=== PATIENT | male | born 1985 | race African-American/Black ===

== ENCOUNTER 2018-03-08 18:39 | Emergency (ER) | payer SELFPAY ==
[2018-03-08] MEDS ORDERED: PANTOPRAZOLE 40 MG INJ ONE (19:39)
[2018-03-08] MEDS ORDERED: NA CHLORIDE 0.9% 1,000 ML ONE (19:39)
[2018-03-08 19:50] LABS: Absolute Lymphocytes (CBC) 1.8 K/uL (0.7-4.9); Absolute Monocytes 1.2 K/uL (0.1-1.3); Absolute Neutrophil 12.8 K/uL (1.8-8.0); Basophils % 0.2 % (0-1.3); Eosinophils % 1.1 % (0-4.4); Hematocrit 38.2 % (39.6-49.0); Lymphocytes % 11.1 % (15.3-44.8); MCH 29.9 pg (27.0-35.0); MCV 89.3 fL (80-100); MPV 9.8 fL (7.6-11.3); Monocytes % 7.5 % (3.3-12.3); RBC Red Blood Cell Count 4.28 M/uL (4.33-5.43)
[2018-03-08 19:53] LABS: Protime INR 1.13
[2018-03-08 20:33] LABS: CKMB Creatine Kinase MB 0.7 ng/ml (0.3-4.0); Glucose Level 96 mg/dL (65-120)
[2018-03-08 20:39] LABS: ALT/SGPT 10 IU/L (10-60); AST/SGOT 19 IU/L (10-42); Albumin 3.8 g/dL (3.2-5.5); Alkaline Phosphatase 54 IU/L (42-121); BUN Blood Urea Nitrogen 9 mg/dL (6-20); Bilirubin Direct 0.2 mg/dL (0-0.2); Bilirubin Total 0.8 mg/dL (0.3-1.2); Creatine Phosphokinase 135 IU/L (22-269); Magnesium 1.5 mg/dL (1.8-2.5); Protein, Total 7.4 g/dL (6.0-8.3)
--- NOTE | 2018-03-08 20:39 | RAD REPORT ---
EXAM DESCRIPTION: CT - Head Brain Wo Cont - 03/08/2018 8:13 pm CLINICAL HISTORY: Dizziness COMPARISON: 2009 TECHNIQUE: Computed axial tomography of the head was obtained. IV contrast was not requested. All CT scans are performed using dose optimization technique as appropriate and may include automated exposure control or mA/KV adjustment according to patient size. FINDINGS: An intracranial bleed is not seen . The ventricles are normal in caliber. No extra-axial fluid collection is noted. The pineal gland is calcified measuring 11 millimeters. It is unchanged from the prior exam. Fluid within the sinuses/ mastoids is not seen. IMPRESSION: No acute intracranial abnormality is seen. The patient's symptoms persist MR the brain w ould be recommended
[2018-03-08 20:40] LABS: Bicarbonate 23 mEq/L (21-31); Sodium Level 141 mEq/L (135-145)
[2018-03-08 20:44] LABS: Potassium 2.9 mEq/L (3.6-5.0)
[2018-03-08 20:45] LABS: Urine Blood TRACE (NEG); Urine Glucose NEGATIVE (NEG); Urine Protein 3+ (NEG); Urine Specific Gravity >1.030 (1.005-1.030)
[2018-03-08] MEDS ORDERED: Morphine 2 MG/2 ML SYR ONE (20:47)
--- NOTE | 2018-03-08 20:57 | RAD REPORT ---
EXAM DESCRIPTION: Narciso Single View03/08/2018 8:08 pm CLINICAL HISTORY: Chest pain COMPARISON: August 2017 FINDINGS: The lungs appear clear of acute infiltrate. The heart is normal size IMPRESSION: No acute abnormalities displayed
--- NOTE | 2018-03-08 21:17 | EDPHYS ---
Physician Documentation [facility] Name: Tahir Ag Jr Age: 32 yrs Sex: Male : 1985 Arrival Date: 03/08/2018 Time: 18:42 Bed 2 Private MD: ED Physician Amanuel Ferrer HPI: 03/08 18:52 This 32 yrs old Black Male presents to ER via Ambulatory with complaints of Dizziness, kav Chest Pain, Headache, Fever. 19:53 The patient or guardian reports chest pain that is located primarily in the left kav breast. The patient presents with dizziness. Onset: The symptoms/episode began/occurred acutely. Context: occurred at a friend's home, just prior to the episode the patient experienced lightheadedness. Modifying factors: The symptoms are alleviated by nothing, the symptoms are aggravated by nothing. Associated signs and symptoms: Pertinent positives: headache. The pain does not radiate. Severity of symptoms: At their worst the symptoms were moderate just prior to arrival. Associated signs and symptoms: Pertinent positives: dizziness, headache, Pertinent negatives: abdominal pain, cough, diaphoresis, nausea, near syncope, palpitations, recent travel, shortness of breath, syncope, vomiting. The chest pain is described as aching, causing indigestion. Duration: The patient or guardian reports a single episode, that is now resolved. Modifying factors: The symptoms are alleviated by nothing. the symptoms are aggravated by nothing. Severity of pain: At its worst the pain was moderate just prior to arrival. Patient's baseline: Neuro: alert and fully oriented, Motor: no deficits, Ambulation: walks without assistance, Speech: normal. patient c/o intermittent chest pain left breast area that is not radiating. he reports associated symptoms of dizziness. pmhx: GERD, migraine headaches. patient reports that he drinks 3 monster drinks a day and 1 redbull per day. he reports smoking some crack and "...shooting up" cocaine this past week. similar symptoms 1 year ago. Historical: - Allergies: 18:46 No Known Allergies; la1 - PMHx: 18:46 Hernia; la1 - Immunization history:: Adult Immunizations up to date. - Social history:: Smoking status: Patient uses tobacco products, smokes one-half pack cigarettes per day. - Family history:: not pertinent. - Hospitalizations: : No recent hospitalization is reported. - History obtained from: friend. ROS: 19:53 Constitutional: Negative for fever, chills, and weight loss, Eyes: Negative for injury, kav pain, redness, and discharge, ENT: Negative for injury, pain, and discharge, Neck: Negative for injury, pain, and swelling, Respiratory: Negative for shortness of breath, cough, wheezing, and pleuritic chest pain, Abdomen/GI: Negative for abdominal pain, nausea, vomiting, diarrhea, and constipation, Back: Negative for injury and pain, : Negative for injury, bleeding, discharge, and swelling, MS/Extremity: Negative for injury and deformity, Skin: Negative for injury, rash, and discoloration, Psych: Negative for depression, anxiety, suicide ideation, homicidal ideation, and hallucinations, Allergy/Immunology: Negative for hives, rash, and allergies, Endocrine: Negative for neck swelling, polydipsia, polyuria, polyphagia, and marked weight changes, Hematologic/Lymphatic: Negative for swollen nodes, abnormal bleeding, and unusual bruising. 19:53 Cardiovascular: Positive for chest pain, with movement, of the left breast, Negative for edema, orthopnea, palpitations, paroxysmal nocturnal dyspnea. 19:53 Neuro: Positive for dizziness. Exam: 19:53 Constitutional: This is a well developed, well nourished patient who is awake, alert, kav and in no acute distress. Head/Face: Normocephalic, atraumatic. Eyes: Pupils equal round and reactive to light, extra-ocular motions intact. Lids and lashes normal. Conjunctiva and sclera are non-icteric and not injected. Cornea within normal limits. Periorbital areas with no swelling, redness, or edema. ENT: Nares patent. No nasal discharge, no septal abnormalities noted. Tympanic membranes are normal and external auditory canals are clear. Oropharynx with no redness, swelling, or masses, exudates, or evidence of obstruction, uvula midline. Mucous membranes moist. Neck: Trachea midline, no thyromegaly or masses palpated, and no cervical lymphadenopathy. Supple, full range of motion without nuchal rigidity, or vertebral point tenderness. No Meningismus. Chest/axilla: Normal chest wall appearance and motion. Nontender with no deformity. No lesions are appreciated. Respiratory: Lungs have equal breath sounds bilaterally, clear to auscultation and percussion. No rales, rhonchi or wheezes noted. No increased work of breathing, no retractions or nasal flaring. Abdomen/GI: Soft, non-tender, with normal bowel sounds. No distension or tympany. No guarding or rebound. No evidence of tenderness throughout. Back: No spinal tenderness. No costovertebral tenderness. Full range of motion. Skin: Warm, dry with normal turgor. Normal color with no rashes, no lesions, and no evidence of cellulitis. MS/ Extremity: Pulses equal, no cyanosis. Neurovascular intact. Full, normal range of motion. Psych: Awake, alert, with orientation to person, place and time. Behavior, mood, and affect are within normal limits. 19:53 Cardiovascular: Rate: normal, Rhythm: regular, Pulses: Pulses are 2+ in bilateral radial, brachial, femoral, popliteal, posterior tibial and and dorsalis pedis arteries.. Heart sounds: normal, Edema: is not appreciated, JVD: is not appreciated. 19:53 ECG was reviewed by the Attending Physician. Vital Signs: 18:46 BP 112 / 68; Pulse 87; Resp 19; Temp 99.0(TE); Pulse Ox 100% on R/A; Weight 58.97 kg; la1 Height 5 ft. 6 in. (167.64 cm); 19:46 BP 98 / 60; Pulse 82; Resp 18; Pulse Ox 99% on R/A; mt 21:14 BP 100 / 70; Pulse 71; Resp 15; Pulse Ox 100% on R/A; mt 18:46 Body Mass Index 20.98 (58.97 kg, 167.64 cm) la1 MDM: 19:06 Medical screening is not applicable. [facility] 20:19 NORM Risk Score: TOTAL SCORE = 0. Data reviewed: vital signs, nurses notes. ED course: loc pt c/o left rib pain 04/02. 03/08 19:31 Order name: Basic Metabolic Panel [facility] 03/08 19:31 Order name: BNP; Complete Time: 21:08 [facility] 03/08 21:09 Interpretation: Within normal limits. [facility] 03/08 19:31 Order name: CBC with Diff; Complete Time: 21:08 [facility] 03/08 21:08 Interpretation: WBC 15.9; HGB 12.8; RBC 4.28; HCT 38.2; STEVE% 80.1; LYM% 11.1; NEUT A kav 12.8. 03/08 19:31 Order name: Ckmb; Complete Time: 21:08 kav 03/08 21:09 Interpretation: Within normal limits. 03/08 19:31 Order name: CPK; Complete Time: 21:08 kav 03/08 21:09 Interpretation: Within normal limits. 03/08 19:31 Order name: LFT's; Complete Time: 21:08 kav 03/08 21:08 Interpretation: Abnormal: GLOB 3.6. v 03/08 19:31 Order name: Magnesium; Complete Time: 21:08 v 03/08 21:09 Interpretation: Abnormal: MG 1.5. 03/08 19:31 Order name: PT-INR; Complete Time: 21:08 kav 03/08 21:09 Interpretation: Abnormal: PT 13.4. 03/08 19:31 Order name: Ptt, Activated; Complete Time: 21:08 v 03/08 21:10 Interpretation: Within normal limits. 03/08 19:31 Order name: Troponin (emerg Dept Use Only); Complete Time: 21:08 v 03/08 21:10 Interpretation: Within normal limits. 03/08 19:31 Order name: XRAY Chest (1 view); Complete Time: 21:08 v 03/08 21:10 Interpretation: No acute disease. 03/08 19:32 Order name: Basic Metabolic Panel; Complete Time: 21:08 EDMS 03/08 21:11 Interpretation: Abnormal: K 2.9. 03/08 19:54 Order name: Urine Dipstick--Ancillary (enter results); Complete Time: 21:08 rg2 03/08 21:11 Interpretation: Abnormal: USPGR >1.030; UBLD TRACE; UPROT 3+. 03/08 20:01 Order name: CT Head Brain wo Cont; Complete Time: 21:08 kav 03/08 21:08 Interpretation: No acute disease. 03/08 18:49 Order name: EKG; Complete Time: 18:49 em1 03/08 18:49 Order name: EKG - Nurse/Tech; Complete Time: 18:50 em1 05/16 19:31 Order name: Cardiac monitoring; Complete Time: 19:35 kav 16 19:31 Order name: IV Saline Lock; Complete Time: 19:35 kav 16 19:31 Order name: Labs collected and sent; Complete Time: 19:35 kav 16 19:31 Order name: O2 Per Protocol; Complete Time: 19:35 kav 16 19:31 Order name: O2 Sat Monitoring; Complete Time: 19:35 kav 16 19:31 Order name: Urine Dipstick-Ancillary (obtain specimen); Complete Time: 20:27 kav EC:53 Rate is 79 beats/min. Rhythm is regular. QRS [place] is Normal. LA interval is normal. QRS kav interval is normal. QT interval is normal. No Q waves. T waves are Normal. No ST changes noted. Clinical impression: Normal ECG. Administered Medications: 19:45 Drug: ProTONIX 40 mg Route: IVP; Site: right antecubital; mg2 20:30 Follow up: Response: No adverse reaction; Pain is decreased mg2 19:46 Drug: NS 0.9% 1000 ml Route: IV; Rate: 1 bolus; Site: right antecubital; mg2 20:30 Follow up: Response: No adverse reaction; IV Status: Completed infusion mg2 20:50 Drug: morphine 4 mg Route: IVP; Site: right antecubital; mg2 21:30 Follow up: Response: No adverse reaction; Pain is decreased mg2 21:40 Drug: Potassium Chloride 40 mEq Route: PO; mg2 21:45 Follow up: Response: Medication administered at discharge. mg2 21:40 Drug: Magnesium 400 mg Route: PO; mg2 21:45 Follow up: Response: Medication administered at discharge. mg2 Disposition: 03/08/18 21:16 Discharged to Home. Impression: Hypomagnesemia, Hypokalemia, Dehydration, Cocaine abuse, costochondritis. - Condition is Stable. - Discharge Instructions: Stimulant Use Disorder-Cocaine, Potassium Content of Foods, Hypomagnesemia, Costochondritis, Zeaw-ma-Xiip, Dehydration, Adult, [id number]-[id number], Hypokalemia. - Medication Reconciliation Form, Thank You Letter, Antibiotic Education, Prescription Opioid Use form. - Follow up: Private Physician; When: 1 - 2 days; Reason: Recheck today's complaints, Continuance of care, Re-evaluation by your physician. - Problem is new. - Symptoms have improved. Addendum: 03/09/2018 22:31 Co-signature as Attending Physician, Amanuel Ferrer MD I agree with the assessment and k dr plan of care. Signatures: Dispatcher [employer] EDWY Amanuel Ferrer MD MD kdr Jaqueline Alfaro, ICT SALES ASSISTANT ICT SALES ASSISTANT kaJulio Goodman em1 Malcolm Villa RN RN la1 Carmelo Biggs RN RN mg2 Corrections: (The following items were deleted from the chart) 03/08 21:08 21:08 GLOB 3.6. kav kav 21:11 21:10 Within normal limits. kav kav 22:02 21:16 03/08/2018 21:16 Discharged to Home. Impression: Hypomagnesemia; Hypokalemia; mg2 Dehydration; Cocaine abuse; costochondritis. Condition is Stable. Forms are Medication Reconciliation Form, Thank You Letter, Antibiotic Education, Prescription Opioid Use. Follow up: Private Physician; When: 1 - 2 days; Reason: Recheck today's complaints, Continuance of care, Re-evaluation by your physician. Problem is new. Symptoms have improved. kav
--- NOTE | 2018-03-08 21:17 | ER ---
Nurse's Notes [facility] Name: Tahir Ag Jr Age: 32 yrs Sex: Male : 1985 Arrival Date: 03/08/2018 Time: 18:42 Bed 2 Private MD: Diagnosis: Hypomagnesemia;Hypokalemia;Dehydration;Cocaine abuse;costochondritis Presentation: 03/08 18:44 Presenting complaint: Patient states: Last night I was getting cold sweats and chills la1 as well as dizziness. At about 2300 last night I had a syncopal episode. Today I am having pain in my chest when I take a deep breath and have been running a fever. Transition of care: patient was not received from another setting of care. Onset of symptoms was March 08, 2018. Initial Sepsis Screen: Does the patient meet any 2 criteria? No. Patient's initial sepsis screen is negative. Does the patient have a suspected source of infection? No. Patient's initial sepsis screen is negative. Care prior to arrival: None. 18:44 Method Of Arrival: Ambulatory la1 18:44 Acuity: MARTINA 3 la1 Historical: - Allergies: 18:46 No Known Allergies; la1 - PMHx: 18:46 Hernia; la1 - Immunization history:: Adult Immunizations up to date. - Social history:: Smoking status: Patient uses tobacco products, smokes one-half pack cigarettes per day. - Family history:: not pertinent. - Hospitalizations: : No recent hospitalization is reported. - History obtained from: friend. Screenin:22 Abuse screen: Denies threats or abuse. Denies injuries from another. Nutritional mg2 screening: No deficits noted. Tuberculosis screening: No symptoms or risk factors identified. Fall Risk IV access (20 points). Assessment: 19:21 General: Appears in no apparent distress. comfortable, Behavior is calm, cooperative. mg2 Pain: Complains of pain in chest Pain does not radiate. Pain currently is 8 out of 10 on a pain scale. Quality of pain is described as aching, stinging, Is intermittent. Neuro: Level of Consciousness is awake, alert, obeys commands, Oriented to person, place, time. Cardiovascular: Capillary refill < 3 seconds Patient's skin is warm and dry. Respiratory: Airway is patent Respiratory effort is even, unlabored, Respiratory pattern is regular, symmetrical. GI: No signs and/or symptoms were reported involving the gastrointestinal system. : No signs and/or symptoms were reported regarding the genitourinary system. EENT: No signs and/or symptoms were reported regarding the EENT system. Derm: Skin is intact, Skin is pink, warm \T\ dry. normal. Musculoskeletal: No signs and/or symptoms reported regarding the musculoskeletal system. 20:30 Reassessment: Patient and/or family updated on plan of care and expected duration. Pain mg2 level reassessed. Patient is alert, oriented x 3, equal unlabored respirations, skin warm/dry/pink. 21:57 Reassessment: patient was on his way out ed and I informed him to wait for his mg2 discharged papers in the room. When I came to discharge him he was nowhere to be found. We tried calling his phone but its not a working number. Provider made aware that patient absconded and that Iv cannula was not yet removed. 22:01 Reassessment: Attempted to contact patient, not a working phone on file; [place] PD lp1 contacted, states will do welfare check and call back. Vital Signs: 18:46 BP 112 / 68; Pulse 87; Resp 19; Temp 99.0(TE); Pulse Ox 100% on R/A; Weight 58.97 kg; la1 Height 5 ft. 6 in. (167.64 cm); 19:46 BP 98 / 60; Pulse 82; Resp 18; Pulse Ox 99% on R/A; mt 21:14 BP 100 / 70; Pulse 71; Resp 15; Pulse Ox 100% on R/A; mt 18:46 Body Mass Index 20.98 (58.97 kg, 167.64 cm) la1 ED Course: 18:42 Patient arrived in ED. rg4 18:46 Triage completed. la1 18:46 Arm band placed on right wrist. la1 18:52 Jaqueline Alfaro FNP is [facility] kav 18:52 Amanuel Ferrer MD is Attending Physician. kav 19:10 Carmelo Biggs RN is Primary Nurse. mg2 19:22 No provider procedures requiring assistance completed. Inserted saline lock: 20 gauge mg2 in right antecubital area, using aseptic technique. Blood collected. 19:23 Patient has correct armband on for positive identification. Placed in gown. Bed in low mg2 position. Call light in reach. Side rails up X2. monitoring analyst on. Pulse ox on. NIBP on. Door closed. Noise minimized. Warm blanket given. 20:05 X-ray completed. Portable x-ray completed in exam room. Patient tolerated procedure bb2 well. 20:05 XRAY Chest (1 view) In Process Unspecified. EDMS 20:[address] via stretcher. nj 20:13 CT completed. Patient tolerated procedure well. Patient moved back from CT. nj 20:13 CT Head Brain wo Cont In Process Unspecified. EDMS 22:01 IV was not removed. patient absconded. mg2 Administered Medications: 19:45 Drug: ProTONIX 40 mg Route: IVP; Site: right antecubital; mg2 20:30 Follow up: Response: No adverse reaction; Pain is decreased mg2 19:46 Drug: NS 0.9% 1000 ml Route: IV; Rate: 1 bolus; Site: right antecubital; mg2 20:30 Follow up: Response: No adverse reaction; IV Status: Completed infusion mg2 20:50 Drug: morphine 4 mg Route: IVP; Site: right antecubital; mg2 21:30 Follow up: Response: No adverse reaction; Pain is decreased mg2 21:40 Drug: Potassium Chloride 40 mEq Route: PO; mg2 21:45 Follow up: Response: Medication administered at discharge. mg2 21:40 Drug: Magnesium 400 mg Route: PO; mg2 21:45 Follow up: Response: Medication administered at discharge. mg2 Outcome: 21:16 Discharge ordered by MD. monterroso 21:50 Patient left the ED. mg2 21:50 Discharged to home ambulatory, with family. 22:47 Condition: [facility] called back, patient at home, no IV lp1 in place, patient states removing it when he arrived home Signatures: Dispatcher [employer] EDMS Jaqueline Alfaro, FOOD DEMONSTRATOR FOOD DEMONSTRATORMiladis Berg, RN RN lp1 Malcolm Villa RN RN Sisi Yañez rg4 Alexey Lopez, [facility] Rea bb2 Carmelo Biggs RN RN mg2 Corrections: (The following items were deleted from the chart) 22:05 21:57 Condition: good lp1 mg2 22:05 22:00 Eloped from patient exam room, after seeing physician Time discovered patient mg2 gone: March 08, 2018 at 21:50 mg2 22: 22:02 Patient left the ED. mg2 mg2 : 21:57 Reassessment: patient was on his way out ed and I informed him to wait for his mg2 discharged papers in the room because Im still medicating another patient. When I came to discharge him he was nowhere to be found. We tried calling his phone but its not a working number. Provider made aware that patient absconded and that Iv cannula was not yet removed. mg2
[2018-03-08] MEDS ORDERED: POTASSIUM CL SA 10 MEQ TAB PO ONE (21:37)
[2018-03-08] MEDS ORDERED: MAGNESIUM OXIDE 400 MG TAB ONE (21:37)
[2018-03-08 22:06] VITALS: TEMP 99
[2018-03-08 22:08] VITALS: BP 100/70; O2SAT 100
--- NOTE | 2018-03-09 07:42 | EKG ---
Test Date: 2018-03-08 Test Time: 18:49:57 Core Winder Machine Operator: ERICH MEASUREMENT RESULTS: Intervals: Rate: 79 DC: 120 QRSD: 74 QT: 368 QTc: 421 [place]: P: 41 DC: 120 QRS: 54 T: 64 INTERPRETIVE STATEMENTS: Normal sinus rhythm Normal ECG Compared to ECG 04/30/2017 12:47:31 Sinus arrhythmia no longer present Electronically Signed On 03-09-18 07:41:41 CDT by Rasta Martinez
== END 2018-03-08 22:02 | disposition home or self-care (01) ==
LOC: ER 18:39
DX: E86.0 Dehydration (principal); F14.10 Cocaine abuse, uncomplicated; E87.6 Hypokalemia; M94.0 Chondrocostal junction syndrome [Tietze]; F17.210 Nicotine dependence, cigarettes, uncomplicated
CPT/HCPCS: 36415; 70450; 71045; 80048; 80076; 81003; 82550; 82553; 83735; 83880; 84484; 85025; 85610; 85730; 93005; 96361; 96374; 96375; 99285; C9113; J2270; J7030

== ENCOUNTER 2018-05-19 19:02 | Emergency (ER) | payer SELFPAY ==
[2018-05-19] MEDS ORDERED: ONDANSETRON 4 MG/2 ML VIAL ONE (19:29)
[2018-05-19] MEDS ORDERED: NA CHLORIDE 0.9% 1,000 ML ONE ×2 (19:29→21:20)
--- NOTE | 2018-05-19 19:38 | RAD REPORT ---
EXAM DESCRIPTION: CT - Head Brain Wo Cont - 05/19/2018 7:29 pm CLINICAL HISTORY: SYNCOPE Seizure COMPARISON: Head Brain Wo Cont dated 03/08/2018; MAXILLOFACIAL W O CONTRAST dated 07/05/2010 TECHNIQUE: All CT scans are performed using dose optimization technique as appropriate and may inclu de automated exposure control or mA/KV adjustment according to patient size. FINDINGS: No intracranial hemorrhage, hydrocephalus or extra-axial fluid collection.No areas of brai n edema or evidence of midline shift. The paranasal sinuses and mastoids are clear. The calvarium is intact. IMPRESSION: No acute intracranial abnormality.
--- NOTE | 2018-05-19 19:50 | RAD REPORT ---
EXAM DESCRIPTION: RAD - Chest Single View - 05/19/2018 7:40 pm CLINICAL HISTORY: CHEST PAIN Chest pain. COMPARISON: Chest Single View dated 03/08/2018; Chest Single View dated 09/08/2017; CHEST SINGLE VIEW dated 07/05/2010 FINDINGS: Portable technique limits examination quality. The lungs are grossly clear. The heart is normal in size. No displaced fractures.Prominent osteochond romas are noted emanating from both proximal humeri. IMPRESSION: No acute intrathoracic process suspected.
[2018-05-19 20:27] LABS: Absolute Lymphocytes (CBC) 1.6 K/uL (0.7-4.9); Absolute Monocytes 0.4 K/uL (0.1-1.3); Absolute Neutrophil 3.2 K/uL (1.8-8.0); Basophils % 0.2 % (0-1.3); Eosinophils % 2.8 % (0-4.4); Hematocrit 37.2 % (39.6-49.0); Lymphocytes % 29.8 % (15.3-44.8); MCH 31.5 pg (27.0-35.0); MCV 93.9 fL (80-100); MPV 9.4 fL (7.6-11.3); Monocytes % 7.8 % (3.3-12.3); RBC Red Blood Cell Count 3.96 M/uL (4.33-5.43)
[2018-05-19 20:29] LABS: Protime INR 0.98
[2018-05-19 20:39] LABS: ALT/SGPT 20 U/L (12-78); AST/SGOT 31 U/L (15-37); Albumin 3.4 g/dL (3.4-5.0); Alkaline Phosphatase 60 U/L (45-117); BUN Blood Urea Nitrogen 20 mg/dL (7-18); Bicarbonate 25 mmol/L (21-32); Bilirubin Direct 0.1 mg/dL (0-0.2); Bilirubin Total 0.3 mg/dL (0.2-1.0); CKMB Creatine Kinase MB 4.6 ng/mL (0.3-3.6); Creatine Phosphokinase 606 U/L (39-308); Glucose Level 96 mg/dL (74-106); Magnesium 2.7 mg/dL (1.8-2.4); NT PRO-BNP 25 pg/mL (<125); Potassium 3.9 mmol/L (3.5-5.1); Protein, Total 7.6 g/dL (6.4-8.2); Sodium Level 142 mmol/L (136-145)
--- NOTE | 2018-05-19 22:30 | ER ---
Nurse's Notes [facility] Name: Tahir Ag Jr Age: 33 yrs Sex: Male : 1985 Arrival Date: 05/19/2018 Time: 19:04 Bed 28 Private MD: Diagnosis: Syncope and collapse Presentation: 05/19 19:04 Presenting complaint: EMS states: he had seizure prior to arrival. no prior histories. mg2 he works outside/sun exposure most of the time. Transition of care: patient was not received from another setting of care. Onset of symptoms was May 19, 2018. Risk Assessment: Do you want to hurt yourself or someone else? Patient reports no desire to harm self or others. Initial Sepsis Screen: Does the patient meet any 2 criteria? No. Patient's initial sepsis screen is negative. Does the patient have a suspected source of infection? No. Patient's initial sepsis screen is negative. Care prior to arrival: None. 19:04 Method Of Arrival: EMS mg2 19:04 Acuity: MARTINA 3 mg2 Historical: - Allergies: 19:07 No Known Allergies; mg2 - Home Meds: 19:07 None [Active]; mg2 - PMHx: 19:07 Hernia; mg2 - PSHx: 19:07 None; mg2 - Immunization history:: Flu vaccine is not up to date. - Social history:: Smoking status: Patient/guardian denies using tobacco, Patient/guardian denies using alcohol, street drugs, IV drugs. - Ebola Screening: : No symptoms or risks identified at this time. Screenin:05 Abuse screen: Denies threats or abuse. Denies injuries from another. Nutritional mg2 screening: No deficits noted. Tuberculosis screening: No symptoms or risk factors identified. Fall Risk Secondary diagnosis (15 points) possible seizure. IV access (20 points). Assessment: 20:06 General: Appears in no apparent distress. comfortable, Behavior is calm. Pain: Denies mg2 pain. Neuro: Level of Consciousness is awake, alert, obeys commands, Oriented to person, place, time, situation. Cardiovascular: Capillary refill < 3 seconds Patient's skin is warm and dry. Respiratory: Airway is patent Respiratory effort is even, unlabored, Respiratory pattern is regular, symmetrical. GI: No signs and/or symptoms were reported involving the gastrointestinal system. : No signs and/or symptoms were reported regarding the genitourinary system. EENT: No signs and/or symptoms were reported regarding the EENT system. Derm: Skin is intact, Skin is pink, warm \T\ dry. normal. Musculoskeletal: No signs and/or symptoms reported regarding the musculoskeletal system. Vital Signs: 19:08 BP 101 / 63; Pulse 82; Resp 18; Temp 98.7(O); Pulse Ox 100% on R/A; Weight 63.5 kg; mg2 Height 5 ft. 6 in. (167.64 cm); Pain 0/10; 20:08 Pulse 64; Resp 18; Pulse Ox 100% on R/A; Pain 0/10; mg2 21:10 BP 91 / 64; Pulse 59; Resp 18; Pulse Ox 100% on R/A; Pain 0/10; mg2 22:12 BP 130 / 82; Pulse 65; Resp 18; Pulse Ox 100% on R/A; Pain 0/10; mg2 19:08 Body Mass Index 22.60 (63.50 kg, 167.64 cm) mg2 21:10 patient is sleeping mg2 22:12 patient is sleeping mg2 ED Course: 19:04 Patient arrived in ED. mg2 19:07 Triage completed. mg2 19:08 Keshawn Schilling PA is PHCP. cp 19:08 Aston Stockton MD is Attending Physician. cp 19:08 Arm band placed on. mg2 19:09 Maintain EMS IV. Dressing intact. Good blood return noted. Site clean \T\ dry. Gauge \T\ mg 2 site: 20 \T\ right ac. 19:25 Carmelo Biggs, MARTINA is Primary Nurse. mg2 19:29 CT Head Brain wo Cont In Process Unspecified. EDMS 19:40 XRAY Chest (1 view) In Process Unspecified. EDMS 20:08 Patient has correct armband on for positive identification. Placed in gown. Side rails mg2 up X2. 22:47 No provider procedures requiring assistance completed. IV discontinued, intact, mg2 bleeding controlled, No redness/swelling at site. Pressure dressing applied. Administered Medications: :56 Drug: NS 0.9% 1000 ml Route: IV; Rate: 1 bolus; Site: right antecubital; mg2 21:19 Follow up: Response: No adverse reaction; IV Status: Completed infusion mg2 19:56 Drug: Zofran 4 mg Route: IVP; Site: right antecubital; mg2 21:19 Follow up: Response: No adverse reaction; Nausea is decreased mg2 21:19 Drug: NS 0.9% 1000 ml Route: IV; Rate: 1 bolus; Site: right antecubital; mg2 22:47 Follow up: Response: No adverse reaction; IV Status: Completed infusion mg2 Outcome: 22:29 Discharge ordered by . jamia 22:48 Discharged to home ambulatory. mg2 22:48 Condition: stable 22:48 Discharge instructions given to patient, Instructed on discharge instructions, follow up and referral plans. Demonstrated understanding of instructions, follow-up care. 22:48 Patient left the ED. mg2 Signatures: Dispatcher [employer] EDMS Keshawn Schilling PA PA cp Gardose, Michele, RN RN mg2
--- NOTE | 2018-05-19 22:30 | EDPHYS ---
Physician Documentation [facility] Name: Taihr Ag Jr Age: 33 yrs Sex: Male : 1985 Arrival Date: 05/19/2018 Time: 19:04 Bed 28 Private MD: ED Physician Aston Stockton HPI: 05/19 19:18 This 33 yrs old Black Male presents to ER via EMS with complaints of Drug Abuse, cp Probable Seizure. 19:18 The patient's problem is reported as possible seizure vs syncope. Onset: The cp symptoms/episode began/occurred just prior to arrival. Duration: This was a single incident. Context: the episode(s) was witnessed, by a bystander, occurred outdoors, Possible contributing factors include: admits to recent use of synthetic marijuana and working outside today. Associated signs and symptoms: Pertinent negatives: abdominal pain, chest pain, diarrhea, fever, headache, vomiting. Patient's baseline: Neuro: alert and fully oriented, Motor: no deficits, Ambulation: walks without assistance, Speech: normal. Historical: - Allergies: 19:07 No Known Allergies; mg2 - Home Meds: 19:07 None [Active]; mg2 - PMHx: 19:07 Hernia; mg2 - PSHx: 19:07 None; mg2 - Immunization history:: Flu vaccine is not up to date. - Social history:: Smoking status: Patient/guardian denies using tobacco, Patient/guardian denies using alcohol, street drugs, IV drugs. - Ebola Screening: : No symptoms or risks identified at this time. ROS: 19:25 Constitutional: Negative for body aches, chills, fever, poor PO intake. cp 19:25 Eyes: Negative for injury, pain, redness, and discharge. cp 19:25 Neck: Negative for pain with movement, pain at rest, stiffness, swollen nodes, tenderness, bony tenderness. 19:25 Cardiovascular: Negative for chest pain. 19:25 Respiratory: Negative for cough, shortness of breath, wheezing. 19:25 Abdomen/GI: Negative for abdominal pain, nausea, vomiting, and diarrhea, black/tarry stool, rectal bleeding. 19:25 Back: Negative for pain at rest, pain with movement. 19:25 MS/extremity: Negative for injury or acute deformity, decreased range of motion. 19:25 Skin: Negative for cellulitis, rash. 19:25 Neuro: Positive for loss of consciousness, Negative for altered mental status, headache, seizure activity, speech changes. 19:25 All other systems are negative. Exam: 19:32 Constitutional: The patient appears in no acute distress, alert, awake, cp non-diaphoretic, non-toxic, well developed, well nourished. 19:32 Head/Face: Normocephalic, atraumatic. cp 19:32 Eyes: Periorbital structures: appear normal, Pupils: equal, round, and reactive to light and accomodation, Extraocular movements: intact throughout, Conjunctiva: normal, no exudate, no injection, Sclera: no appreciated abnormality, Lids and lashes: appear normal, bilaterally. 19:32 ENT: External ear(s): are unremarkable, Ear canal(s): are normal, clear, TM's: dullness, bilaterally, Nose: is normal, Mouth: Lips: moist, Oral mucosa: moist, Posterior pharynx: is normal, airway is patent, no erythema, no exudate. 19:32 Neck: ROM/movement: is normal, is supple, without pain, no range of motions limitations, no meningismus, no nuchal rigidity. 19:32 Chest/axilla: Inspection: normal, Palpation: is normal, no crepitus, no tenderness. 19:32 Cardiovascular: Rate: normal, Rhythm: regular, Pulses: Pulses are 2+ in right radial artery and left radial artery. Edema: is not appreciated, JVD: is not appreciated. 19:32 Respiratory: the patient does not display signs of respiratory distress, Respirations: normal, no use of accessory muscles, no retractions, no splinting, no tachypnea, labored breathing, is not present, Breath sounds: are clear throughout, no decreased breath sounds, no stridor, no wheezing. 19:32 Abdomen/GI: Inspection: abdomen appears normal, Bowel sounds: active, all quadrants, Palpation: abdomen is soft and non-tender, in all quadrants, rebound tenderness, is not appreciated, voluntary guarding, is not appreciated, involuntary guarding, is not appreciated. 19:32 Back: pain, is absent, ROM is normal. 19:32 Musculoskeletal/extremity: Exam is negative for decreased range of motion, deformity, injury. 19:32 Skin: cellulitis, is not appreciated, no rash present. 19:32 Neuro: Orientation: to person, place \T\ time. Mentation: able to follow commands, slow to respond, Cerebellar function: Romberg testing is negative, Motor: moves all fours, strength is normal, Sensation: no obvious gross deficits. 20:05 Radiologist reports: no acute findings cp 20:10 ECG was reviewed by the Attending Physician. cp Vital Signs: 19:08 BP 101 / 63; Pulse 82; Resp 18; Temp 98.7(O); Pulse Ox 100% on R/A; Weight 63.5 kg; mg2 Height 5 ft. 6 in. (167.64 cm); Pain 0/10; 20:08 Pulse 64; Resp 18; Pulse Ox 100% on R/A; Pain 0/10; mg2 21:10 BP 91 / 64; Pulse 59; Resp 18; Pulse Ox 100% on R/A; Pain 0/10; mg2 22:12 BP 130 / 82; Pulse 65; Resp 18; Pulse Ox 100% on R/A; Pain 0/10; mg2 19:08 Body Mass Index 22.60 (63.50 kg, 167.64 cm) mg2 21:10 patient is sleeping mg2 22:12 patient is sleeping mg2 MDM: 19:08 Patient medically screened. cp 20:00 Differential diagnosis: CVA, TIA, metabolic disorder, drug effects, seizure, drug cp overdose. 22:27 Data reviewed: vital signs, nurses notes, lab test result(s), EKG, radiologic studies, cp CT scan, plain films. 22:27 Test interpretation: by ED physician or midlevel provider: ECG, plain radiologic cp studies. Counseling: I had a detailed discussion with the patient and/or guardian regarding: the historical points, exam findings, and any diagnostic results supporting the discharge/admit diagnosis, lab results, radiology results, to return to the emergency department if symptoms worsen or persist or if there are any questions or concerns that arise at home. Response to treatment: the patient's symptoms have markedly improved after treatment, and as a result, I will discharge patient. 05/19 19:14 Order name: Basic Metabolic Panel cp 05/19 19:14 Order name: CBC with Diff cp 05/19 19:14 Order name: Ckmb; Complete Time: 21:16 cp 05/19 19:14 Order name: CPK; Complete Time: 21:16 cp 05/19 21:49 Interpretation: Abnormal: CPK 606. cp 05/19 19:14 Order name: LFT's; Complete Time: 21:16 05/19 19:14 Order name: Magnesium; Complete Time: 21:16 05/19 19:14 Order name: NT PRO-BNP; Complete Time: 21:16 05/19 19:14 Order name: PT-INR; Complete Time: 20:36 05/19 19:14 Order name: Ptt, Activated; Complete Time: 20:36 05/19 19:14 Order name: Troponin (emerg Dept Use Only); Complete Time: 21:16 cp 05/19 19:14 Order name: XRAY Chest (1 view); Complete Time: 19:51 05/19 19:51 Interpretation: Report review. 05/19 19:14 Order name: Basic Metabolic Panel; Complete Time: 21:16 EDMS 05/19 21:49 Interpretation: Normal except: CL 112; BUN 20. cp 05/19 19:14 Order name: CBC with Automated Diff; Complete Time: 20:36 EDMS 05/19 20:36 Interpretation: Normal except: RBC 3.96; HGB 12.5; HCT 37.2; MCV 93.9. 05/19 19:14 Order name: EKG; Complete Time: 19:16 05/19 19:14 Order name: Cardiac monitoring; Complete Time: 19:56 05/19 19:14 Order name: EKG - Nurse/Tech; Complete Time: 20:05 05/19 19:14 Order name: IV Saline Lock; Complete Time: 19:56 05/19 19:14 Order name: Labs collected and sent; Complete Time: 19:56 05/19 19:14 Order name: O2 Per Protocol; Complete Time: 19:56 05/19 19:14 Order name: O2 Sat Monitoring; Complete Time: 19:56 05/19 19:14 Order name: CT Head Brain wo Cont; Complete Time: 19:51 05/19 19:51 Interpretation: Report reviewed. EC:10 Rate is 62 beats/min. Rhythm is regular. NH interval is normal. QRS interval is normal. cp QT interval is normal. No ST changes noted. Interpreted by me. Reviewed by me. Administered Medications: 19:56 Drug: NS 0.9% 1000 ml Route: IV; Rate: 1 bolus; Site: right antecubital; mg2 21:19 Follow up: Response: No adverse reaction; IV Status: Completed infusion mg2 19:56 Drug: Zofran 4 mg Route: IVP; Site: right antecubital; mg2 21:19 Follow up: Response: No adverse reaction; Nausea is decreased mg2 21:19 Drug: NS 0.9% 1000 ml Route: IV; Rate: 1 bolus; Site: right antecubital; mg2 22:47 Follow up: Response: No adverse reaction; IV Status: Completed infusion mg2 Disposition: 05/20 03:04 Co-signature as Attending Physician, Aston Stockton MD. pkl Disposition: 05/19/18 22:29 Discharged to Home. Impression: Syncope and collapse. - Condition is Stable. - Discharge Instructions: Syncope. - Medication Reconciliation Form, Thank You Letter, Antibiotic Education, Prescription Opioid Use form. - Follow up: Private Physician; When: 1 - 2 days; Reason: Recheck today's complaints. - Problem is new. - Symptoms have improved. Signatures: Dispatcher [employer] EDMS Aston Stockton MD MD pkl Keshawn Schilling PA PA cp Gardose, Michele RN RN mg2 Corrections: (The following items were deleted from the chart) 05/19 22:48 22:29 05/19/2018 22:29 Discharged to Home. Impression: Syncope and collapse. Condition mg2 is Stable. Forms are Medication Reconciliation Form, Thank You Letter, Antibiotic Education, Prescription Opioid Use. Follow up: Private Physician; When: 1 - 2 days; Reason: Recheck today's complaints. Problem is new. Symptoms have improved. cp
[2018-05-19 22:52] VITALS: TEMP 98.7; O2SAT 100
[2018-05-19 22:55] VITALS: BP 130/82
--- NOTE | 2018-05-20 07:17 | EKG ---
Test Date: 2018-05-19 Test Time: 20:02:01 Motion Picture Film Examiner: MEASUREMENT RESULTS: Intervals: Rate: 62 ND: 138 QRSD: 86 QT: 416 QTc: 422 Olga: P: 57 ND: 138 QRS: 60 T: 63 INTERPRETIVE STATEMENTS: Normal sinus rhythm with sinus arrhythmia Normal ECG Compared to ECG 03/08/2018 18:49:57 No significant changes Electronically Signed On 05-20-18 07:17:14 CDT by Rasta Martinez
== END 2018-05-19 22:48 | disposition home or self-care (01) ==
LOC: ER 19:02
DX: R55 Syncope and collapse (principal)
CPT/HCPCS: 36415; 70450; 71045; 80048; 80076; 82550; 82553; 83735; 83880; 84484; 85025; 85610; 85730; 93005; 96361; 96374; 99284; J2405; J7030

== ENCOUNTER 2019-06-07 16:44 | Emergency (ER) | payer SELFPAY ==
[2019-06-07] MEDS ORDERED: METOCLOPRAMIDE 10 MG/2mL INJ ONE (17:35)
[2019-06-07] MEDS ORDERED: DIPHENHYDRAMINE 50 MG/ML VIAL ONE (17:35)
[2019-06-07 17:49] LABS: Absolute Lymphocytes (CBC) 1.5 K/uL (0.7-4.9); Basophils % 0.8 % (0-1.3); Hematocrit 38.3 % (39.6-49.0); Lymphocytes % 27.9 % (15.3-44.8); MPV 8.6 fL (7.6-11.3)
[2019-06-07 17:52] LABS: Protime INR 1.04
[2019-06-07 18:05] LABS: BUN Blood Urea Nitrogen 9 mg/dL (7-18); Bicarbonate 28 mmol/L (21-32); Glucose Level 77 mg/dL (74-106); NT PRO-BNP 39 pg/mL (<125); Potassium 3.3 mmol/L (3.5-5.1); Sodium Level 141 mmol/L (136-145); Troponin (Emerg Dept Use Only) < 0.02 ng/mL (0.0-0.045)
--- NOTE | 2019-06-07 18:55 | ER ---
Nurse's Notes [facility] Name: Tahir Ag Jr Age: 34 yrs Sex: Male : 1985 Arrival Date: 06/07/2019 Time: 16:49 Bed 15 Private MD: Diagnosis: Chest pain, unspecified Presentation: 06/07 16:49 Presenting complaint: EMS states: Pt developed chest pain enroute to precint, EMS met with police cruiser. Pt states he is having chest pain and head ache 10/10 on a pain scale. VS on scene was 110/73 98 99% RA afebrile. Transition of care: patient was not received from another setting of care. Onset of symptoms was June 07, 2019. Risk Assessment: Do you want to hurt yourself or someone else? Patient reports no desire to harm self or others. Initial Sepsis Screen: Does the patient meet any 2 criteria? HR > 90 bpm. Does the patient have a suspected source of infection? No. Patient's initial sepsis screen is negative. Care prior to arrival: Medication(s) given: Tylenol, 1000 mg. 16:49 Method Of Arrival: EMS: [facility] 16:49 Acuity: MARTINA 3 Historical: - Allergies: 16:54 No Known Allergies; - Home Meds: 16:54 gabapentin oral oral [Active]; Metoprolol Tartrate Oral [Active]; - PMHx: 16:54 Hernia; Diabetes - NIDDM; Hypertension; - Immunization history:: Adult Immunizations unknown. - Social history:: Smoking status: Patient uses tobacco products. - Ebola Screening: : Patient negative for fever greater than or equal to 101.5 degrees Fahrenheit, and additional compatible Ebola Virus Disease symptoms Patient denies exposure to infectious person. Screenin:52 Abuse screen: Denies threats or abuse. Denies injuries from another. Nutritional screening: No deficits noted. Tuberculosis screening: No symptoms or risk factors identified. Fall Risk None identified. Assessment: 17:05 General: Appears in no apparent distress. Behavior is calm, cooperative, appropriate for age. Pain: Complains of pain in chest Pain does not radiate. Pain currently is 5 out of 10 on a pain scale. Quality of pain is described as aching, Pain began 30 min ago. Neuro: Level of Consciousness is awake, alert, obeys commands, Oriented to person, place, time, situation, Appropriate for age Water Systems Engineer are equal bilaterally. Cardiovascular: Heart tones S1 S2. Respiratory: Airway is patent Respiratory effort is even, unlabored, Respiratory pattern is regular, symmetrical, Breath sounds are clear bilaterally. GI: Abdomen is flat, non-distended. : No signs and/or symptoms were reported regarding the genitourinary system. EENT: No signs and/or symptoms were reported regarding the EENT system. Derm: Skin is intact, is healthy with good turgor, Skin is pink, warm \T\ dry. normal. Musculoskeletal: Range of motion: intact in all extremities. 18:11 Reassessment: Patient appears in no apparent distress at this time. No changes from previously documented assessment. Patient and/or family updated on plan of care and expected duration. Pain level reassessed. Patient is alert, oriented x 3, equal unlabored respirations, skin warm/dry/pink. 19:43 Reassessment: Patient appears in no apparent distress at this time. No changes from previously documented assessment. Patient and/or family updated on plan of care and expected duration. Pain level reassessed. Patient is alert, oriented x 3, equal unlabored respirations, skin warm/dry/pink. Patient denies pain at this time. Patient states feeling better. Vital Signs: 16:54 BP 106 / 73; Pulse 86; Resp 18; Temp 98; Pulse Ox 100% ; wh 18:00 BP 98 / 74; Pulse 67; Resp 14; Pulse Ox 100% on R/A; wh 19:30 BP 103 / 78; Pulse 62; Resp 14; Pulse Ox 100% ; ED Course: 16:49 Patient arrived in ED. 16:52 Triage completed. 16:52 Arm band placed on left wrist. 16:53 Kasey Morales FNP-C is PHCP. kb 16:53 Keshawn Fish MD is Attending Physician. kb 16:54 PHCP role handed off by Kasey Morales FNP-C jr8 16:54 Ramón Quevedo PA is PHCP. jr8 16:54 Patient has correct armband on for positive identification. Placed in gown. Bed in low wh position. Call light in reach. Side rails up X 1. dental associate on. Pulse ox on. NIBP on. 17:11 Viktor Foy is Primary Nurse. 17:14 EKG done, by install technician. reviewed by Ramón DAVIS. [facility] 17:25 Inserted saline lock: 22 gauge in left antecubital area, using aseptic technique. Blood wh collected. 17:37 XRAY Chest (1 view) In Process Unspecified. EDMS 17:51 PHCP role handed off by Ramón Quevedo PA [facility] 17:51 Teo Alvares PA is PHCP. [facility] 19:44 No provider procedures requiring assistance completed. IV discontinued, intact, wh bleeding controlled, No redness/swelling at site. Administered Medications: 17:42 Drug: Benadryl 25 mg Route: IVP; Site: left antecubital; 19:44 Follow up: Response: No adverse reaction 17:43 Drug: Reglan 10 mg Route: IVP; Site: left antecubital; 19:44 Follow up: Response: No adverse reaction Outcome: 18:55 Discharge ordered by . [facility] 19:44 Discharged to Law Enforcement 19:44 Condition: good 19:44 Discharge instructions given to patient, police, Instructed on discharge instructions, follow up and referral plans. POC Unspecified Chest Pain Demonstrated understanding of instructions, follow-up care, POC 19:47 Patient left the ED. Signatures: Dispatcher [employer] EDMS Kasey Morales, BANANA LOADER-C BANANA LOADER-Ckb Teo Alvares PA PA jmm Roszak, Josh, PA PA [id number] Viktor Foy Tegan Martínez 3
--- NOTE | 2019-06-07 18:56 | EDPHYS ---
Physician Documentation [facility] Name: Tahir Ag Jr Age: 34 yrs Sex: Male : 1985 Arrival Date: 06/07/2019 Time: 16:49 Bed 15 Private MD: ED Physician Keshawn Fish HPI: 06/07 17:01 This 34 yrs old Black Male presents to ER via EMS with complaints of chest pain. jr8 17:01 The patient or guardian reports chest pain that is located primarily in the substernal jr8 area. The pain does not radiate. Associated signs and symptoms: Pertinent positives: headache. The chest pain is described as sharp. Duration: The patient or guardian reports multiple episodes. Modifying factors: The symptoms are alleviated by nothing. the symptoms are aggravated by nothing. Severity of pain: At its worst the pain was moderate in the emergency department the pain has improved mildly. The patient has experienced similar episodes in the past. The patient has not recently seen a physician. Stated that he last used Meth yesterday and cocaine 2 days ago . Historical: - Allergies: 16:54 No Known Allergies; - Home Meds: 16:54 gabapentin oral oral [Active]; Metoprolol Tartrate Oral [Active]; - PMHx: 16:54 Hernia; Diabetes - NIDDM; Hypertension; - Immunization history:: Adult Immunizations unknown. - Social history:: Smoking status: Patient uses tobacco products. - Ebola Screening: : Patient negative for fever greater than or equal to 101.5 degrees Fahrenheit, and additional compatible Ebola Virus Disease symptoms Patient denies exposure to infectious person. ROS: 17:01 Eyes: Negative for injury, pain, redness, and discharge, ENT: Negative for injury, jr8 pain, and discharge, Neck: Negative for injury, pain, and swelling, Respiratory: Negative for shortness of breath, cough, wheezing, and pleuritic chest pain, Abdomen/GI: Negative for abdominal pain, nausea, vomiting, diarrhea, and constipation, Back: Negative for injury and pain, MS/Extremity: Negative for injury and deformity, Skin: Negative for injury, rash, and discoloration. 17:01 Cardiovascular: Positive for chest pain, Negative for edema, orthopnea, palpitations, paroxysmal nocturnal dyspnea. 17:01 Neuro: Positive for headache, Negative for altered mental status, dizziness, gait disturbance, hearing loss, loss of consciousness, numbness, seizure activity, speech changes, syncope, near syncope, tingling, tinnitus, tremor, visual changes, weakness. Exam: 17:01 Eyes: Pupils equal round and reactive to light, extra-ocular motions intact. Lids and jr8 lashes normal. Conjunctiva and sclera are non-icteric and not injected. Cornea within normal limits. Periorbital areas with no swelling, redness, or edema. ENT: Nares patent. No nasal discharge, no septal abnormalities noted. Tympanic membranes are normal and external auditory canals are clear. Oropharynx with no redness, swelling, or masses, exudates, or evidence of obstruction, uvula midline. Mucous membranes moist. Neck: Trachea midline, no thyromegaly or masses palpated, and no cervical lymphadenopathy. Supple, full range of motion without nuchal rigidity, or vertebral point tenderness. No Meningismus. Cardiovascular: Regular rate and rhythm with a normal S1 and S2. No gallops, murmurs, or rubs. Normal PMI, no JVD. No pulse deficits. Respiratory: Lungs have equal breath sounds bilaterally, clear to auscultation and percussion. No rales, rhonchi or wheezes noted. No increased work of breathing, no retractions or nasal flaring. Abdomen/GI: Soft, non-tender, with normal bowel sounds. No distension or tympany. No guarding or rebound. No evidence of tenderness throughout. Back: No spinal tenderness. No costovertebral tenderness. Full range of motion. Skin: Warm, dry with normal turgor. Normal color with no rashes, no lesions, and no evidence of cellulitis. MS/ Extremity: Pulses equal, no cyanosis. Neurovascular intact. Full, normal range of motion. Neuro: Awake and alert, GCS 15, oriented to person, place, time, and situation. Cranial nerves II-XII grossly intact. Motor strength 5/5 in all extremities. Sensory grossly intact. Cerebellar exam normal. Normal gait. Vital Signs: 16:54 BP 106 / 73; Pulse 86; Resp 18; Temp 98; Pulse Ox 100% ; wh 18:00 BP 98 / 74; Pulse 67; Resp 14; Pulse Ox 100% on R/A; wh 19:30 BP 103 / 78; Pulse 62; Resp 14; Pulse Ox 100% ; wh MDM: 16:53 Patient medically screened. kb 18:44 Data reviewed: vital signs, nurses notes. [facility] 18:53 Data reviewed: lab test result(s). [facility] 18:54 Data reviewed: radiologic studies, plain films. Counseling: I had a detailed discussion terell with the patient and/or guardian regarding: the historical points, exam findings, and any diagnostic results supporting the discharge/admit diagnosis, lab results, radiology results, the need for outpatient follow up, to return to the emergency department if symptoms worsen or persist or if there are any questions or concerns that arise at home. 08 16:54 Order name: Basic Metabolic Panel; Complete Time: 18:20 kb 06/07 16:54 Order name: CBC with Diff; Complete Time: 18:24 kb 06/07 16:54 Order name: Magnesium; Complete Time: 18:20 kb 06/07 16:54 Order name: NT PRO-BNP; Complete Time: 18:20 kb 06/07 16:54 Order name: PT-INR; Complete Time: 18:20 kb 06/07 16:54 Order name: Troponin (emerg Dept Use Only); Complete Time: 18:20 kb 06/07 16:54 Order name: XRAY Chest (1 view) kb 06/07 16:54 Order name: EKG; Complete Time: 16:57 kb 06/07 16:54 Order name: Cardiac monitoring; Complete Time: 17:32 kb 06/07 16:54 Order name: EKG - Nurse/Tech; Complete Time: 17:32 kb 06/07 16:54 Order name: IV Saline Lock; Complete Time: 17:32 kb 06/07 16:54 Order name: Labs collected and sent; Complete Time: 17:32 kb 06/07 16:54 Order name: O2 Per Protocol; Complete Time: 17:32 kb 06/07 16:54 Order name: O2 Sat Monitoring; Complete Time: 17:32 kb Administered Medications: 17:42 Drug: Benadryl 25 mg Route: IVP; Site: left antecubital; 19:44 Follow up: Response: No adverse reaction 17:43 Drug: Reglan 10 mg Route: IVP; Site: left antecubital; 19:44 Follow up: Response: No adverse reaction Disposition: 06/08 08:21 Co-signature as Attending Physician, Keshawn Fish MD I agree with the assessment and daniel plan of care. Disposition: 06/07/19 18:55 Discharged to Home. Impression: Chest pain, unspecified. - Condition is Stable. - Discharge Instructions: Nonspecific Chest Pain. - Medication Reconciliation Form, Thank You Letter, Antibiotic Education, Prescription Opioid Use form. - Follow up: Private Physician; When: 2 - 3 days; Reason: Recheck today's complaints, Continuance of care, Re-evaluation by your physician. Signatures: Dispatcher [employer] EDKasey Garcia, BEN-C BEN-Keshawn Chacon MD MD cha Mickail, Joel, PA PA jmm Roszak, Josh, PA PA jr8 Habalo, Winsy Corrections: (The following items were deleted from the chart) 06/07 19:47 18:55 06/07/2019 18:55 Discharged to Home. Impression: Chest pain, unspecified. wh Condition is Stable. Forms are Medication Reconciliation Form, Thank You Letter, Antibiotic Education, Prescription Opioid Use. Follow up: Private Physician; When: 2 - 3 days; Reason: Recheck today's complaints, Continuance of care, Re-evaluation by your physician. terell
--- NOTE | 2019-06-07 19:56 | RAD REPORT ---
EXAM DESCRIPTION: Narciso Single View06/07/2019 5:37 pm CLINICAL HISTORY: Chest pain COMPARISON: 2018 FINDINGS: The lungs appear clear of acute infiltrate. The heart is normal size IMPRESSION: No acute abnormalities displayed
[2019-06-07 20:11] VITALS: TEMP 98; O2SAT 100
[2019-06-07 20:15] VITALS: BP 103/78
--- NOTE | 2019-06-08 11:47 | EKG ---
Test Date: 2019-06-07 Test Time: 17:07:53 Operations Intern: RAGINI MEASUREMENT RESULTS: Intervals: Rate: 73 AZ: 146 QRSD: 78 QT: 392 QTc: 431 Foster: P: 73 AZ: 146 QRS: 74 T: 79 INTERPRETIVE STATEMENTS: Normal sinus rhythm Normal ECG Compared to ECG 05/19/2018 20:02:01 Sinus arrhythmia no longer present Electronically Signed On 06-08-19 11:45:04 CDT by Grant Bill
== END 2019-06-07 19:47 | disposition home or self-care (01) ==
LOC: ER 16:44
DX: R07.9 Chest pain, unspecified (principal); I10 Essential (primary) hypertension; E11.9 Type 2 diabetes mellitus without complications; Z72.0 Tobacco use
CPT/HCPCS: 36415; 71045; 80048; 83735; 83880; 84484; 85025; 85610; 93005; 96374; 96375; 99285; J2765

== ENCOUNTER 2020-09-14 22:25 | Emergency (ER) | payer SELFPAY ==
--- OUTSIDE RECORDS SUMMARY | 2020-09-14 22:26 | XMS REPORT | Summary of Care ---
:1985 Author Organization [facility] - Health Address [address] [place] [address] Care Team Providers Name Role Phone Pcp, Does Not Have A Primary Care Provider Encounter Details Date Type Department Care Team Description 08/23/2020 Orders Only [facility] Doctor Unassigned, No [address] [facility] [place] [address] [address] [place] [place] [id number] Allergies No Known Allergiesdocumented as of this encounter (statuses as of 08/23/2020) Medications Medication Sig Dispensed Refills Start Date End Date Status divalproex sodium Take by mouth. 0 Active (DEPAKOTE ORAL) sertraline HCl (ZOLOFT Take by mouth. 0 Active ORAL) guanfacine HCl (TENEX Take by mouth. 0 Active ORAL) documented as of this encounter (statuses as of 08/23/2020) Active Problems No known active problemsdocumented as of this encounter (statuses as of 08/23/2020) Social History Tobacco Use Types Packs/Day Years Used Date Never Assessed Sex Assigned at Date Recorded Not on file documented as of this encounter Last Filed Vital Signs Not on filedocumented in this encounter Plan of Treatment Health Maintenance Due Date Last Done Comments VARICELLA VACCINES (1 of 2 - 1985 2-dose childhood series) Depression Screening 1996 DTaP,Tdap,and Td Vaccines (1 - 2003 Tdap) INFLUENZA VACCINE (#1) 2020 PNEUMOCOCCAL 0-64 YEARS COMBINED Aged Out No longer eligible based on SERIES patient's age to complete this topic documented as of this encounter Procedures Procedure Name Priority Date/Time Associated Diagnosis Comme nts CONSENT/REFUSAL FOR Routine 08/23/2020 5:56 PM CDT DIAGNOSIS AND TREATMENT documented in this encounter Results Not on filedocumented in this encounter
--- OUTSIDE RECORDS SUMMARY | 2020-09-14 22:26 | XMS REPORT | Continuity of Care Document ---
:1985 Author Organization [facility] t Address [address] [place] [address] Care Team Providers Name Role Phone Van Attending Clinician Oren CONTRERAS Attending Clinician Elizabeth ARENAS, A Attending Clinician Doctor Unassigned, Name Attending Clinician Unavailable Jose Hamilton MD Attending Clinician Shelton ARENAS Admitting Clinician Problems This patient has no known problems. Allergies, Adverse Reactions, Alerts This patient has no known allergies or adverse reactions. Social History Social Habit Start Date Stop Date Quantity Comments Source Sex Assigned At [facility] Medications This patient has no known medications. Procedures This patient has no known procedures. Plan of Care Planned Activity Planned Date Details Comments Source Future Scheduled Test 2020-07-24 00:00:00 IMM Influenza [facility] Seasonal Jul to December (>/= 19 yrs) [code = IMM Influenza Seasonal Jul to December (>/= 19 yrs)] Encounters Start End Encounter Admission Attending Care Care Encounter Source Date/Time Date/Time Type Type Clinicians Facility Department ID 2020-09-01 2020-09-01 Transition Sharon Araujo [id number] 00:00:00 00:00:00 of Care Henrietta Jo [id number] Daniela [id number] 2020-08-23 2020-08-30 [facility] Gauri Lott [id number] 18:15:00 16:15:00 Encounter Ramila Johnson [id number] [facility] [id number] 2020-08-23 2020-08-23 Orders Doctor NEGRITO [id number] 00:00:00 00:00:00 Only Unassigned, NAMRATA [id number] [place] [facility] [id number] 2020-05-02 2020-05-02 Emergency Joy RUST [id number] 02:29:01 07:27:00 Brett Howe [id number] [place] [id number] [place] [id number] Results This patient has no known results.
--- OUTSIDE RECORDS SUMMARY | 2020-09-14 22:26 | XMS REPORT | Clinical Summary ---
:1985 Author Organization [facility] Address [address] [place] [address] Care Team Providers Name Role Phone Unavailable Primary Care Provider Unavailable Allergies No Known Allergies Medications No known medications Active Problems Not on file Social History Tobacco Use Types Packs/Day Years Used Date Never Assessed Sex Assigned at Date Recorded Not on file Job Start Date Occupation Industry Not on file Not on file Not on file Travel History Travel Start Travel End No recent travel history available. Last Filed Vital Signs Not on file Plan of Treatment Health Maintenance Due Date Last Done Comments IMM Influenza Seasonal Jul to December (>/= 19 yrs) 07/24/2020 Results Not on fileafter 09/14/2019 Insurance Payer Benefit Plan / Subscriber ID Effective Dates Phone Addre ss Type Group [employer] SELF-PAY xxxxxxxxx 2014-Prese [phone] [id number] SELF-PAY UNSCREENED [address] [place] [address] (Work) [id number]
--- OUTSIDE RECORDS SUMMARY | 2020-09-14 22:29 | XMS REPORT | Summary of Care ---
:1985 Author Organization [facility] Address [address] [place] [address] Care Team Providers Name Role Phone Pcp, Does Not Have A Primary Care Provider Reason for Visit Reason Comments Transition Of Care Encounter Details Date Type Department Care Team Description 09/01/2020 Transition of Care [facility] Conor Araujo Transition Of Care Health [facility]- [address] [place] [id number] Allergies No Known Allergiesdocumented as of this encounter (statuses as of 09/01/2020) Medications Medication Sig Dispensed Refills Start Date End Date Status divalproex sodium Take by mouth. 0 Active (DEPAKOTE ORAL) sertraline HCl (ZOLOFT Take by mouth. 0 Active ORAL) guanfacine HCl (TENEX Take by mouth. 0 Active ORAL) ergocalciferol, Take 1 capsule 5 capsule 0 09/03/2020 10/02/20 20 Active vitamin d2, 1,250 mcg by mouth weekly (50,000 unit) for 5 doses. capsuleIndications: Achalasia of esophagus nitroglycerin 0.[address] 1 tablet 90 tablet 2 08/30/2020 Active sublingual under the tabletIndications: tongue before Achalasia of esophagus meals. omeprazole 40 mg Take 1 capsule 30 capsule 2 08/30/2020 Active capsuleIndications: by mouth daily. Achalasia of esophagus ziprasidone (GEODON) Take 80 mg by 0 Active 80 mg capsule mouth 2 (two) times daily with meals. documented as of this encounter (statuses as of 09/01/2020) Active Problems Problem Noted Date E46 Unspecified severe protein-calorie malnutrition 1 10/25/2019 Dysphagia 08/24/2020 Hypokalemia 08/24/2020 Esophageal dysphagia 08/23/2020 Overview: Added automatically from request for gin singletary [id number] Bipolar 1 disorder GERD (gastroesophageal reflux disease) documented as of this encounter (statuses as of 09/01/2020) Immunizations Name Administration Dates Next Due Influenza Virus Vaccine Quad .5 mL IM 6+ MO 08/30/2020 Pneumococcal Polysaccharide, PPSV23 (PNEUMOVAX) 08/30/2020 documented as of this encounter Social History Tobacco Use Types Packs/Day Years Used Date Never Assessed Sex Assigned at Date Recorded Not on file COVID-19 Exposure Response Date Recorded In the last month, have you been in contact with Yes 08/23/2020 5:56 PM CDT someone who was confirmed or 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 documented as of this encounter Last Filed Vital Signs Not on filedocumented in this encounter Miscellaneous Notes Telephone Encounter - Henrietta Araujo - 09/01/2020 12:24 PM CST TRANSITIONAL CARE MANAGEMENT ASSESSMENT 09/01/2020 Tahir Ag Jr. [id number] Tahir Eric Ag Jr. is a 35 year old Black or male [facility] [address] He was discharged on 08/30/20 with discharge disposition of HR- Routine Discharge. Admitting Physician: Clarice Peoples Discharge Diagnosis: Dysphagia (Achalasia vs stricture) Pt. States discharge instructions explained in detail and understood all. Pt. Has no questions or concerns. Linked Episodes Type: Episode: Status: Noted: Resolved: Last update: Updated by: TRANSITION OF CARE tcm Active 08/30/2020 09/01/2020 12:22 PM Henrietta Araujo Comments:08/30/2020 TCM [id number]-face outreach documentation: Discharge Assessment Chart Assessed: 09/01/20 TCM Outreach Completed: 09/01/20 Do you have a few minutes to speak with me about how you are doing at home?: Yes Discharge Instructions Do you understand your at-home instructions?: Yes Medications Have you filled your prescriptions and do you have them in your home? : Yes Do you know how to take your medications?: Yes Can you provide me with the names or descriptions of any [id number] or supplements you are currently taking?: Yes Supplies Did you receive applicable home medical supplies/equipment?: N/A Follow Up Appointment Has a follow up appointment been scheduled?: Yes([facility] f/u scheduled) Do you have any questions about your follow up appointments?: No Are you able to get to your appointment? Who will be taking you?: Yes(mother) Home Health Assistance Has the home health nurse contacted you since you've been home?: N/A Survey - Recognition Is there anything you would like to share about your recent hospitalization, or anyone you would like to recognize?: No Do you have any suggestions for improvement?: No Do you have any other questions or concerns at this time?: No Future Appointments: documented in this encounter Plan of Treatment Health Maintenance Due Date Last Done Comments VARICELLA VACCINES (1 of 2 - 1985 2-dose childhood series) Depression Screening 1996 DTaP,Tdap,and Td Vaccines (1 - 2003 Tdap) INFLUENZA VACCINE Completed 08/30/2020 PNEUMOCOCCAL 0-64 YEARS COMBINED Aged Out 08/30/2020 No longer eligible based on SERIES patient's age to complete this topic documented as of this encounter Results Not on filedocumented in this encounter Insurance Payer Benefit Plan / Subscriber ID Effective Phone Address T [employer] Group Dates MEDICAID MEDICAID PENDING 2020-Pre [address] [place] [address] Pending P[place] [address] documented as of this encounter
--- OUTSIDE RECORDS SUMMARY | 2020-09-14 22:29 | XMS REPORT | Summary of Care ---
:[address] [facility] Address [address] [place] [id number] Care Team Providers Name Role Phone Pcp, Does Not Have A Primary Care Provider Reason for Referral (Routine) Status Reason Specialty Diagnoses / Referred By Referred To Procedures Contact Contact Open PN-PSYCHIATRY Diagnoses Achalasia of esophagus Johnson, Ramila A, Procedures Discharge Follow-Up: Specialty Service PN-PSYCHIATRY; [address] [id number] (Routine) Status Reason Specialty Diagnoses / Referred By Referred To Procedures Contact Contact New Request IM-GASTROENTEROLO Diagnoses Achalasia of esophagus Elizabeth, Ramila A, GY Procedures Discharge Follow-Up: Specialty Service IM-GASTROENTEROLOGY; [address]eks [address] [address] (Routine) Status Reason Specialty Diagnoses / Referred By Referred To Procedures Contact Contact New Request Diagnoses Achalasia of esophagus Johnson, Ramila A, Center, [facility] Procedures Discharge Follow-up: PCP [facility]; 1 Week MD Gustavo MARTINEZ [address] [id number] [place], [place] Phone: [phone] Phone: Fax: (Routine) Status Reason Specialty Diagnoses / Referred By Referred To Procedures Contact Contact New Request Diagnostic Diagnoses Achalasia of esophagus Ramila Johnson Radiology Procedures FL BARIUM SWALLOW ESOPHAGUS MD Sarah 301 [facility] [id number] [place] [address] MRI/CAT Scan (STAT) Status Reason Specialty Diagnoses / Referred By Referred To Procedures Contact Contact New Request Diagnostic Diagnoses Generalized abdominal pain Vomiting, intractability of vomiting not specified, presence of nausea not specified, unspecified vomiting type Globus sensation Vinccorazon, Radiology Procedures CT thorax with contrast Shinmike, [facility] [id number] [place] [address] MRI/CAT Scan (STAT) Status Reason Specialty Diagnoses / Referred By Referred To Procedures Contact Contact New Request Diagnostic Diagnoses Generalized abdominal pain Vomiting, intractability of vomiting not specified, presence of nausea not specified, unspecified vomiting type Vincent, Radiology Procedures CT ABDOMEN PELVIS W CONTRAST Gauri [facility] [address] [place] [address] Radiology Services (STAT) Status Reason Specialty Diagnoses / Referred By Referred To Procedures Contact Contact New Request Diagnostic Diagnoses Generalized abdominal pain [place], Radiology Procedures Chest 1 View Shinmike [facility] [address] [place] [address] Reason for Visit Reason Comments Vomiting Auth/Cert Status Reason Specialty Diagnoses / Referred By Referred To Procedures Contact Contact Emergency Medicine [facility] Em ergency Dept [address] [place] [phone] Fax: Encounter Details Date Type Department Care Team Description 08/23/2020 - Hospital Encounter Medicine (JADE 10B) Gauri Lott SECURITY SYSTEMS SPECIALIST [address] [id number] [place], [place] [id number] Esophageal dysphagia 08/30/2020 712 [facility] Ramila Johnson MD [address] [id number] [place], [place] [address] [place] [address] Clarice Peoples MD [address] [place], [place] [address] [phone] Allergies No Known Allergiesdocumented as of this encounter (statuses as of 08/30/2020) Medications Medication Sig Dispensed Refills Start Date [...] as of this encounter (statuses as of 08/30/2020) Active Problems Problem Noted Date E46 Unspecified severe protein-calorie malnutrition 1 10/25/2019 Dysphagia 08/24/2020 Hypokalemia 08/24/2020 Esophageal dysphagia 08/23/2020 Overview: Added automatically from request for gin singletary [id number] Bipolar 1 disorder GERD (gastroesophageal reflux disease) documented as of this encounter (statuses as of 08/30/2020) Immunizations Name Administration Dates Next Due Influenza [...] of this encounter Last Filed Vital Signs Vital Sign Reading Time Taken Comments Blood Pressure 137/89 08/30/2020 11:19 AM DONOR CENTER TECHNICIAN Pulse 57 08/30/2020 11:19 AM DONOR CENTER TECHNICIAN Temperature 35.8 C (96.4 F) 08/30/2020 11:19 AM DONOR CENTER TECHNICIAN Respiratory Rate 18 08/30/2020 11:19 AM DONOR CENTER TECHNICIAN Oxygen Saturation 100% 08/30/2020 11:19 AM DONOR CENTER TECHNICIAN Inhaled Oxygen Concentration - - Weight 49.9 kg (110 lb) 08/23/2020 6:11 PM CDT Height 167.6 cm (5' 6") 08/23/2020 6:11 PM CDT Body Mass Index 17.75 08/23/2020 6:11 PM CDT documented in this encounter Discharge Instructions AttachmentsThe following attachments cannot be sent through Care Everywhere. Nitroglycerin sublingual tablets (Estonian)Omeprazole tablets (OTC) (Estonian) Hypokalemia, Discharge Instructions (Estonian)Dysphagia (Adult) (Estonian) Ergocalciferol, Vitamin D2 tablets or capsules (Estonian)Adults, Flu Shots for (Estonian)Pneumococcal Vaccination (Estonian)Diet, Full Liquid (Estonian)Diet, Discharge Instructions for Having a Full Liquid (Estonian)Cocaine: Getting Help (Estonian)Methamphetamine Abuse and Addiction, Understanding (Estonian)Esophageal Spasm (Estonian)documented in this encounter Progress Notes Marissa Keys MD - 08/29/2020 3:16 PM CSTDiscussed case with GI team and primary team. Pt is continuing not to follow directions and recommendations of the primary team and leaves the building and eats regular food despite explanation of the importance of being on clear liquids prior to endoscopic evaluation to decrease the risk of aspiration. Also patient's utox is continuously positive for amphetamines and cocaine and after multiple discus sions with anesthesia and GI team, at this time we will not proceed with EGD due to increased risk of complications from drug use and not following dietary restrictions. GI team will sign off at this time. Please call us back once UDS is negative or have patient follow up with us as an outpatient whenhe is not actively using cocaine, amphetamines. Consider reconsulting psychiatry and social work fortheir recommendations since it is a complicated matter with significant social issues. Pt discussed with Dr. Wang. Marissa Keys MD Gastroenterology and Hepatology PGY-4 Contact [facility] Dixie Valdes RN - 08/29/2020 1:31 PM DONOR CENTER TECHNICIAN Care Management Discharge Disposition Note (DCDN) -2- Interventions: Disease specific education;Intensive medication reconciliation/management;Cleardischarge plan;Teach back;Appropriate palliative care referral 2- Providers: Nurse;Document Management Consultant/Laborer Carpentry Dock;Physician -2-1 Patient Capacity Improvements: Transportation arrangements Discharge Plan for ongoing care and services: Patient Choice completed for referred services: Discussed with patient/patients family involved in decision making: Patient or family caregiver understands, and agrees with discharge plan Patient's family or support contact: Community resources/referrals made or provided to patient: Yes Resources/Referrals: [facility] Resources Fact Sheets;[facility] Indigent Program;[facility] Mental Status: Alert & Oriented to Person,Place & Time Psychosocial issues and/or concerns resulting in patient being a high risk for re-admission: Lack offunding Manage ADL indepentdly: Yes Living Arrangement: Home Other living arrangement: Address of living arrangement: [address] [place] [address] Funding Resources: Self Pay Has patient been referred to [facility]? Nursing informed of discharge plan: No CHP referral sent? No CM medication request completed (if appropriate): No PCP: No Transportation: Private Vehicle Prior authorization obtained for ambulance: Authorization number: CPT code: Discharge Medications Will the patient be able to obtain his medications? Yes Does the patient have transportation to to obtain the prescription medications? Yes CM Medication Request completed (if appropriate): Yes Name of RN informed: Expected discharge date: 08/30/2020 Time: Additional Information: WEEKEND DC DISPO CM/SW Name & Contact number: Dixie Smith RN Ph. [phone] The following information has been provided to the facility noted above: reason for the patient discharge or transfer; patients physical and psychosocial status; summary of care, treatment, servicesprovided to patient; and the patient progress toward goals. Gianni Gonzalez MD - 08/29/2020 7:15 AM CST Yanira Treadwell Progress Note Date of Service: 08/29/2020 07:15 Chief Complaint: Dysphagia 24-HOUR EVENTS: NAEO UDS positive - Called the lab Amphetamine level for was >41,000 which is their upper limit and cocaine was >1000 which is their upper limit. UDS from 08/24 amphetamine was 30,000 and cocainewas >1000. Patient continues to eat solid foods despite repeated counseling on aspiration risk. SUBJECTIVE: Patient upset about not being able to eat. Notes last time using drugs either amphetamine or cocainewas when the morning of the day he came into the hospital. PHYSICAL EXAM: Temp: [35.5 C (95.9 F)-37.1 C (98.7 F)] Pulse: [49-75] Resp: [16-18] BP: (112-126)/(76-88) MAP (mmHg): [89-101] Intake/Output Summary (Last 24 hours) at 08/29/2020 0715 Last data filed at 08/29/2020 0600 Gross per 24 hour Intake 612 ml Output Net 612 ml Gen: NAD, A&O HEENT: NC/AT, EOMI, MMM P: CTAB CV: RRR, no MRG; MSK: Moving all 4 extremities spontaneously Neuro: No gross deficits noted, peripheral sensation intact Skin: No peripheral edema, cyanosis, lesions noted LABS/IMAGING - reviewed, pertinent results as below: UDS 08/28 presumptive positive for amphetamines and cocaine. Amphetamine level for was >41,000 which is their upper limit and cocaine was >1000 whichis their upper limit. UDS from 08/24 amphetamine was 30,000 and cocaine was >1000. ASSESSMENT/PLAN Tahir Ag Jr. is a 35 year old male admitted to the hospital with: Dysphagia (Achalasia vs stricture) GERD UDS continues to be positive with last two UDS showing increasing levels of amphetamines and above the upper limit of cocaine both times. Most recent exact levels still pending. Patient continues to eat solid foods despite being counseled repeatedly about aspiration risk with eating solid foods. He also continues to be gone from the floor for long periods of time. - Follow GI and anesthesiology recommendations for endoscopy - Continue PPI (protonix 40 mg) IVPB, BID - CLD Hypokalemia Bradycardia Hypernatremia - resolved. - D5W - replete K Severe Protein-calorie malnutrition Unable to keep food and liquids down; lost 40 lbs since March 2020 -Currently CLD - Will follow director of government sales recommendations post EGD Vit. D Deficiency Vit. D 25OH level: 19 Vit. d2 [id number] Qweeklyfor 6wks Schizophrenia Bipolar Anxiety Psych consulted 08/27. Anxiety about the same as yesterday. -Continue Lorazepam 0.5 mg BID -Continue Sertraline tablet 200 mg daily -Continue ziprasidone 80 mg, oral, BID with meals -Continue guanfacine 1 mg tab oral BID -Continue divalproex (depakote) EC tab 750 mg oral BID Syphilis Positive serology for Syph IgG/IgM, TP-PA, RPR 1:1. Penicillin g benzathine inj 2.4 million u received 08/25 Gianni Aguilar MD Internal Medicine PGY-1 END OF DAILY PROGRESS NOTE HOSPITAL COURSE Tahir Ag Jr. is a 35 year old male with PMH of right inguinal hernia, bipolar, schizophrenia, GERD. Admitted forhypokalemia,dysphagia,and weight loss. Found to have GE junction narrowing, possible achalasia vs stricture. K was aggressively repleted while patient on telemetry. Givenpositive UDS and unknown time of last cocaine use anesthesiology wanted to wait to do EGD till UDS was clear. Patient continued to eat solid food and leave the floor for long periods of time. His UDS also consistently positive for both amphetamines and cocaine. R CENTER TECHNICIAN Associated attestation - Ramila Johnson MD - 08/30/2020 12:30 AM CSTI personally examined the patient on 08/29/[address] Aguilar's resident note with the following addition(s): challenging case as patient is unable to tolerate po and with severe electrolytederangements, yet is not compliant with recommendations with avoidance of solid food and illicit drug use that prohibits anesthesia involvement prior to procedures. Preformed barium swallow that is markedly abnormal and showed to patient to illustrate why avoiding solids is so important. Radiographically suspect achalasia; will trial nitro SL prior to meals and start liquids. If electrolytes stable and able to tolerate then will d/c home with outpatient follow up with GI for EGD if UDS negative.Will also need psych follow up as outpatient and offer drug rehab services. Lastly, will need to ensure that medications are elixir or can be crushed . I actively participated in the decision-making process. Please see the resident's note for additional details. MD Demarco Briggs Nisha, MD - 08/28/2020 8:18 PM CST Psychiatry Consult Progress Note Date of Service: 08/28/2020 CC:"I'm ok" Subjective: Patient appears to be sleeping when entered room, but wakes up quickly and states he was actually awake. When asked how he is doing, he reports doing "ok" and reports "I've been sleeping". Reports his procedure is scheduled for tomorrow. When asked about his liquid diet, he reports things are the sameand he keeps throwing it up. But he appears content with having his procedure tomorrow.He denies anyconcerns with mood or anxiety. He reports that he has been sleeping ok. Has no other questions or concerns at this time. CURRENT MEDICATIONS: Current Facility-Administered Medications Medication Dose Route Frequency Last Rate Last Admin acetaminophen (TYLENOL) tablet 650 mg 650 mg Oral Q6HPRN 650 mg at 08/28/20 0936 guanFACINE (TENEX) tablet 1 mg 1 mg Oral BID 1 mg at 08/28/202005 D5W IV infusion 1,000 mL 1,000 mL IV Infusion CONTINUOUS 100 mL/hr at 08/27/20 2146 1,000 mL at110/27/19 2146 nicotine (NICODERM) 7 mg/24 hr patch 1 Patch 1 Patch Topical Q24H 1 Patch at 08/28/20 1142 divalproex (DEPAKOTE) EC tablet 750 mg 750 mg Oral BID 750 mg at 08/28/202005 ergocalciferol (vitamin d2) (CALCIFEROL) capsule 50,000 Units 50,000 Units Oral QWEEKLY 50,000 Units at 08/27/20 0803 pantoprazole (PROTONIX) 2 mg/mL oral suspension 40 mg 40 mg Oral BID 40 mg at 08/28/202005 SERTraline (ZOLOFT) tablet 200 mg 200 mg Oral DAILY 200 mg at 08/28/20804 ziprasidone (GEODON) capsule 80 mg 80 mg Oral BID MEALS 80 mg at 08/28/20804 LORazepam (ATIVAN) tablet 0.5 mg 0.5 mg Oral BID 0.5 mg at 08/28/202005 enoxaparin (LOVENOX) injection 40 mg 40 mg Subcutaneous DAILY 40 mg at 08/28/20804 VITAL SIGNS: BP 122/85 (BP Location: Right arm, Patient Position: Supine) | Pulse 56 | Temp 37.1 C (98.7 F)(Oral) | Resp 18 | Ht 5' 6" (1.676 m) | Wt 110 lb (49.9 kg) | SpO2 100% | BMI 17.75 kg/m LAB DATA CBC BMP PT/INR WBC (10*3/L) Date Value 08/23/2020 6.36 NA (mmol/L) Date Value 08/28/2020 144 No results found for: PT RBC (10*6/L) Date Value 08/23/2020 3.85 (L) K (mmol/L) Date Value 08/28/2020 3.3 (L) No results found for: PTINR PLT (10*3/L) Date Value 08/23/2020 201 CALCIUM (mg/dL) Date Value 08/28/2020 8.5 (L) HGB (g/dL) Date Value 08/23/2020 11.1 (L) CL (mmol/L) Date Value 08/28/2020 106 aPTT HCT (%) Date Value 08/23/2020 33.4 (L) BUN (mg/dL) Date Value 08/28/2020 6 (L) No results found for: APTTPAT CREATININE (mg/dL) Date Value 08/28/2020 0.96 EXAMINATION: Appearance: patient laying in bed sleeping Behavior: unremarkable Affect: appropriate, tired in context of being woken up Mood: "ok" Speech: said few words, but normal rate, soft due to just waking up Thought Process: coherent Thought Content: unremarkable Perception: absent Suicidal Ideation: absent Homicidal Ideation: absent Orientation: person, place and situation Memory Impairment: absent Judgment: СЕРГЕЙ currently, but grossly impaired Insight: СЕРГЕЙ currently ASSESSMENT/PLAN: Patient appears improved today; is calm without agitation or anxiety. Appears agreeable to plan for procedure tomorrow. Mood and anxiety appear stable at this time. No active symptoms of psychosis apparent at this time. Recommend continuation of current medications and continue management per primary team. 1) Schizophrenia (primary encounter) Comment: Plan: - C/W current home psychotropic medications: Lorazepam 0.5 mg BID, Zoloft 200 mg, Geodon 80 mg BID w/ meals, Guanfacine 1 mg BID, Depakote EC 750mg BID - Haldol 5 mg/Ativan 2 mg PRN up to BID for acute agitation/psychosis if redirection fails Recommendations for after discharge: - Referral to follow up with [facility] Outpatient Psychiatry (Efren): [phone], (Janet): [phone] or [facility]: or [facility]: or [facility]: [phone] s/p hospital discharge for psychiatric medications - No more psychiatric intervention is needed at this moment, Psychiatry will sign off. Thank you forinvolving us in the care of this patient. Please contact the psychiatry consult pager: [phone] with any questions. Patient discussed and seen with Dr. Rosado, Psychiatry faculty, who agrees with the above note. Ariella Pal MD PGY 2 Psychiatry Consult Pager # [phone] R CENTER TECHNICIAN Associated attestation - Gianni Rosado MD - 08/29/2020 11:46 AM CSTI examined this patient, discussed the case with the resident, and directed the medical decision-making. I agree with the resident note. Marissa Keys MD - 08/28/2020 3:52 PM CSTBrief GI note: Discussed case and seen pt with team and Dr. Ortega. Pt has not been following recommendations to stay on liquid diet and eating food from outside which with his presentation of narrowing at the GE junction on imaging and distention of esophagus is a major risk factor for aspiration during endoscopy. Please place NGT to suction all the food from the esophagus (NGT doesn't need to go all the way into the stomach) and place patient NPO. Continue to monitor electrolytes and keep K>4, Mg>2. Alsoplease recheck toxicology screen this evening with tentative plan for EGD if all the above management has been met. Marissa Keys MD Gastroenterology and Hepatology PGY-4 Contact info [facility] signed by Marissa Keys MD at 08/28/2020 4:55 PM CSTGianni Aguilar MD - 08/28/2020 5:56 AM CST Medical Student Medicine Progress Note Date of Service: 08/28/2020 05:57 Chief Complaint: Dysphagia 24-HOUR EVENTS: [place] SUBJECTIVE: Patient said he slept well last night. He said he is still anxious about his procedure. He reports pain in his arms from the IV. Denies abdominal pain except when he presses deeply on his abdomen. PHYSICAL EXAM: Temp: [35.7 C (96.2 F)-36.5 C (97.7 F)] Pulse: [58-84] Resp: [18] BP: (111-131)/(76-98) MAP (mmHg): [84-107] Intake/Output Summary (Last 24 hours) at 08/28/2020 0557 Last data filed at 08/28/2020 0000 Gross per 24 hour Intake 972 ml Output 260 ml Net 712 ml Gen: Alert, oriented, awake. Appears less agitated than previous days. CV: Regular rhythm; no appreciable murmurs P: CTAB MSK: moving all 4 extremities spontaneously LABS/IMAGING - reviewed, pertinent results as below: K:3.5> 3.0> 3.2 Na:145>149>145 CO2 total: 32>35>34 BUN:4>6>5 Amp Meth, cocaine metabolite: presumptive positive ASSESSMENT/PLAN Tahir Ag Jr. is a 35 year old male admitted to the hospital with: Dysphagia (Achalasia vs stricture) GERD Reports abdominal pain and difficulty keeping liquids down. Possible EGD tomorrow if repeat UDS is clear. Patient left room last night. Presumptive positive cocaine metabolite and amp meth yesterday possible metabolites from last use on 08/23/20. - Follow GI and anesthesiology recommendations for endoscopy - Continue PPI (protonix 40 mg) IVPB, BID - NPO pm - CLD Hypokalemia Bradycardia Hypernatremia - resolved. Last lab value K of 3.2 on 08/27 2140. Down from 4.1 on 08/27 457. - KCl oral 40 mEq x2 - KCl IV 40 mEq x1 -Start and continue D5W IV infusion 1,000 mL continuous Severe Protein-calorie malnutrition Unable to keep food and liquids down; lost 40 lbs since March 2020 -Currently CLD - Will follow director of government sales recommendations post EGD Vit. D Deficiency Vit. D 25OH level: 19 Vit. d2 [id number],000u Qweeklyfor 6wks Schizophrenia Bipolar Anxiety Psych consulted 08/27. Anxiety about the same as yesterday. -Continue Lorazepam 0.5 mg BID -Continue Sertraline tablet 200 mg daily -Continue ziprasidone 80 mg, oral, BID with meals -Continue guanfacine 1 mg tab oral BID -Continue divalproex (depakote) EC tab 750 mg oral BID Syphilis Positive serology for Syph IgG/IgM, TP-PA, RPR 1:1. Penicillin g benzathine inj 2.4 million u received 08/25 Luz Marina Ramos, MS3 I personally examined the patient on 08/28/2020 and have verified the medical student documentationand/or findings, including the history, physical exam, and medical decision making. Additionally, I have personally performed or re- performed the physical exam and medical decision making activities [facility] patient's evaluation and management service. Gianni Aguilar MD PGY-1 END OF DAILY PROGRESS NOTE HOSPITAL COURSE Tahir Ag Jr. is a 35 year old male with PMH of right inguinal hernia, bipolar, schizophrenia, GERD. Admitted forhypokalemia,dysphagia,and weight loss. Found to have GE junction narrowing, possible achalasia vs stricture. K was aggressively repleted while patient on telemetry. Givenpositive UDS and unknown time of last cocaine use anesthesiology wanted to wait to do EGD till UDS was clear. R CENTER TECHNICIAN Associated attestation - Ramila Johnson MD - 08/30/2020 12:31 AM CSTI personally examined the patient on 08/28/[address] Aguilar resident's note as written,including any changes or additions that the resident may have made to Luz Marina Ramos' medical student's note. I actively participated in the decision making process. Please see the resident's note for additional details. Mariama Crowder Krist, MD - 08/27/2020 11:01 PM CSTAt 11:02 pm the nursing team notified me that the patient was not in his room for an unknown period of time and at 11:04 pm the patient was seen reentering his room. He was found to have his IVF fluidsremoved. R CENTER TECHNICIAN Gianni Aguilar MD - 08/27/2020 5:59 AM CST Medical Student Medicine Progress Note Date of Service: 08/27/2020 06:00 Chief Complaint: Dysphagia 24-HOUR EVENTS: [place] SUBJECTIVE: Patient said he did not sleep well last night because he was anxious and "emotionally tired" from yesterday. He said he walked the floor last night. He says he is concerned about the pain and swelling in his R arm from his last IV. He said he is not as cold as he was yesterday, but still feeling cold.He said he is more tired than yesterday. His anxiety is about the same as yesterday. Last vomiting episode was early this AM. Reports he drank orange juice around 1 AM. He is increasingly hungry. He reports LE weakness and dizziness upon standing. Reports intermittent hand cramps last night. Denies nausea, chest pain, and recent BM. PHYSICAL EXAM: Temp: [35.7 C (96.3 F)-37 C (98.6 F)] Pulse: [58-94] Resp: [16-18] BP: (120-158)/(73-107) MAP (mmHg): [89-124] Intake/Output Summary (Last 24 hours) at 08/27/2020 0600 Last data filed at 08/26/2020 1432 Gross per 24 hour Intake 1637 ml Output Net 1637 ml Gen: Alert, oriented, restless CV: Regular rhythm; no appreciable murmurs P: CTAB Abd: Normal bowel sounds, soft and tender to light palpation to RUQ MSK: Moving all 4 extremities spontaneously LABS/IMAGING - reviewed, pertinent results as below: K:2>2.2>3.1>4.1 Vit D 25-OH: 19 Na:147>146>147 CO2 total: 39>36>35 M.0>1.9>2.4 BUN:5>4>4 ASSESSMENT/PLAN Tahir Ag Jr. is a 35 year old male admitted to the hospital with: Dysphagia (Achalasia vs stricture) GERD Reports abdominal pain and difficulty keeping liquids down. Per GI if he leaves floor unsupervised he may not be able to receive EGD. Potassium is 4.1 this AM. -GI recommendations for endoscopy -Continue PPI (protonix 40 mg) IVPB, BID -NPO pm Hypokalemia Bradycardia Hypernatremia Last lab value 4.1 at 08/27 at 0457. Possible EGD today. Telemetry trending 54- 108. Episode of sinus bradycardia in early AM and sinus tachycardia at around 6AM. - Discontinue KCl IV and oral - Start and continue D5W IV infusion 1,000 mL continuous Severe Protein-calorie malnutrition Unable to keep food and liquids down; lost 40 lbs since March 2020 -Currently CLD - Will follow director of government sales recommendations post EGD Vit. D Deficiency Vit. D 25OH level: 19 Vit. d2 capsule 50,000u Qweekly for 6wks Schizophrenia Bipolar Anxiety Received psychiatry medication list from [facility] on 08/26. Anxiety the same as yesterday. -Continue Lorazepam 0.5 mg BID -Start and continue Sertraline tablet 200 mg daily -Start and continue ziprasidone 80 mg, oral, BID with meals -Start and continue guanfacine 1 mg tab oral BID -Start and continue divalproex (depakote) EC tab 750 mg oral BID Luz Marina Ramos, MS3 I personally examined the patient on 08/27/2020 and have verified the medical student documentationand/or findings, including the history, physical exam, and medical decision making. Additionally, I have personally performed or re- performed the physical exam and medical decision making activities ofthis patient's evaluation and management service. Gianni Aguilar MD Internal Medicine PGY-1 END OF DAILY PROGRESS NOTE HOSPITAL COURSE Tahir Ag Jr. is a 35 year old male with PMH of right inguinal hernia, bipolar, schizophrenia, GERD. Admitted forhypokalemia,dysphagia,and weight loss. Found to have GE junction narrowing, possible achalasia vs stricture. K was aggressively repleted while patient on telemetry. R CENTER TECHNICIAN Associated attestation - Ramila Johnson MD - 08/27/2020 3:25 PM CSTI personally examined the patient on 08/27/[address] Aguilar's resident's note as written, including any changes or additions that the resident may have made to Luz Marina Ramos' medical student's note. Hypokalemia resolved with repletion. Repeated UDS as per request of anesthesiology and continues to be positive for cocaine. However, unclear how a positive test is helpful given that can be persistently positive in urine in heavy use for up to 7-14 days. Patient reports last day of use was 08/23 in the AM. Will consult psychiatry to help with agitation given underlying schizoaffective, bipolar, and anxiety. His agitation is further aggravated by not being allowed to eat or smoke (given our recommendations to stay in his room/on unit). Will also discuss with GI/anesthesia timing of EGD in order to further evaluate underlying dysphagia given focal narrowing at GE junction seen on CT imaging. I actively participated in the decision making process. Please see the resident's note for additional details. Ramila Johnson MD 08/27/2020 3:25 PMAGianni goodwin MD - 08/26/2020 6:07 AM CST Medical Student Medicine Progress Note Date of Service: 08/26/2020 06:08 Chief Complaint: Dysphagia 24-HOUR EVENTS: [place] SUBJECTIVE: Patient says he is cold, tired, and hungry this morning. He said he slept well last night. Concernedabout when his GI procedure will be. Reports abdominal pain but no nausea. Reports substernal chest pain (04/02) that is worse than yesterday. He says his anxiety is better than yesterday (6/10) and thinks the lorazepam is helping. Reports fatigue, weakness, constipation (last BM 4 days ago), and intermittent muscle cramps in his hands. PHYSICAL EXAM: Temp: 35.3 C (95.6 F)-35.9 C (96.7 F) Pulse: 47-81 (telemetry: average 50-60 lowest was 37 on 08/26 at 12:41) BP: (117-151)/(76-102) MAP: 90-118 RR: 17-18 Gen: Alert, oriented, shivering Abd: Soft, and tender to light palpation in LUQ CV: Bradycardia; no appreciable murmurs P: CTAB Ext : moving all 4 ext spontaneously. Intake/Output Summary (Last 24 hours) at 08/26/2020 0608 Last data filed at 08/25/2020 1100 Gross per 24 hour Intake 1000 ml Output Net 1000 ml LABS/IMAGING - reviewed, pertinent results as below: K: 2.0 Vit. D 25-OH: 19 Na:144>148> 145 CO2 Total: 33 >34> 38 Ca: 8.2-8.5 ASSESSMENT/PLAN Tahir Ag Jr. is a 35 year old male admitted to the hospital with: Dysphagia (Achalasia vs stricture) GERD A: Reports chest pain, abdominal pain, hunger. Per GI will wait for hypokalemia to resolve before procedure. Pt high risk given aspiration risk as well as recent hx of IV drug use. Per GI if he leaves the floor unsupervised he may not be a candidate for EGD. P:-GI recommendations for endoscopy; -continue PPI (protonix 40 mg) IVPB, BID - CLD for now -NPO past midnight. Hypokalemia Bradycardia A: Persistently low (2.2); Bradycardia trending 50-60 P: - KCl 40 mEq IV q4h - KCl 40 mEq oral q3h - KCL 40mEQ in 1000ml D5w - Check Mg levels Severe Protein-calorie malnutrition A: Unable to keep food down; lost 40 lbs since March 2020 P: -Currently CLD for GI procedure -Will follow director of government sales recommendations post GI procedure Vit. D deficiency A: Vit. D 25OH level: 19 P: Vit. 50,000u Qweekly Schizophrenia Bipolar disorder Anxiety A: Less anxious than yesterday (rated 6/10) P: continue Lorazepam 0.5 mg BID - Will f/u with pharmacy about home meds. Luz Marina Ramos, MS3 I personally examined the patient on 08/26/2020 and have verified the medical student documentationand/or findings, including the history, physical exam, and medical decision making. Additionally, I have personally performed or re- performed the physical exam and medical decision making activities ofthis patient's evaluation and management service. Gianni Aguilar MD PGY-1 END OF DAILY PROGRESS NOTE Hospital Course Tahir Ag Jr. is a 35 year old male with PMH of right inguinal hernia, bipolar, schizophrenia, GERD. Admitted for hypokalemia, dysphagia, and weight loss. Found to have GE junction narrowing, possible achalasia vs stricture. K was aggressively repleted while patient on telemetry. R CENTER TECHNICIAN Associated attestation - Ramila Johnson MD - 08/27/2020 8:29 AM CSTI personally examined the patient on 08/26/[address] Aguilar's resident's note as written, including any changes or additions that the resident may have made to Luz Marina Ramos's medical student's note with the following additions: plan to restart outpatient medications that may help with agitation which is likely contributing along with withdrawal. Need potassium higher for anesthesia given dangerously low and discussed staying inroom to allow for treatment. I actively participated in the decision making process. Please see the resident's note for additional details.Gianni Aguilar MD - 08/25/2020 5:21 PM CSTBrief progress note Per GI they talked to the patient extensively about the procedure tomorrow and notified him that if he leaves his room to go outside they will not proceed with the EGD. They emphasized that this would be a reason to cancel the procedure for him given that this would make him a high risk for the procedure. The patient often leaves the room disconnected from his IV which has his potassium despite being told multiple times that this is a critical medication for him and all the risks associated with not correcting his levels. He is understandably very anxious and will leave multiple times during the day to "clear his head" or to smoke. However given his hx of IV drug use and PIV in place and recent positive UDS GI notes that his unsupervised time would make him very high risk for the procedure. He was explicitly notified of this by the GI doctors. The night resident was also notified and a nursing order was placed to try and reiterate with him of the risks of leaving if he still attempts to. Will continue to replete his potassium. Gianni Aguilar MD Internal Medicine PGY-1 erman Mendoza LMSW - 08/25/2020 1:17 PM CSTCare Management Social Functional Assessment Patient Name: Tahir Ag Jr. Age: [age] year old Sex: male Previous admit date: N/A Current diagnosis and co-morbidities: VOMITING Readmission Questions: Was patient discharged from any acute care hospital within the last 30 days: No Social Functional Assessment: Primary language spoken/preferred: Estonian Mental Status: Alert & Oriented to Person,Place & Time Information given by: Self Patient's support system: Parent Name and number of support system: Ancelmo Funes @ [phone] (mother) Primary Chemical Etching Processor: Self MPOA: No Living Arrangement: Home Address of living arrangement : [address] [place] [address] Persons living in home: Self;Parent Names & numbers of persons living in home: Ancelmo Funes @ [phone] (mother) Barriers to returning home: None Baseline functional status- ambulation: Independent Functional status-baseline personal care: Independent Baseline functional status- driving: Dependent Functional status-baseline housekeeping: Independent Functional status-baseline meal prep: Independent Current functional status same as prior: Yes Do you have a PCP?: No Refered to: access centre Home Health Care Agency: No Provider Services: No DME Company: No Equipment: None Hemodialysis: No Community resources utilized: None Funding Resources: Self Pay Prescription coverage plan: Self Pay Pharmacy where meds are filled: Other Other pharmacy: [facility] Anticipated services prior to disharge: Continue Medical Eval Expected mode of discharge transportation: Family Name and phone number of the friend or family member picking up the patient: Ancelmo Funes @ [phone] (mother) Additional Recommendations for DC: provided [facility] resources and Good RX card. Pt has been refered to the inpatient registration to screen for Medicaid. Recommended discharge plan: Home SFA Complete: Social Functional Assessment complete: Yes Alcohol Use Screening (AUDIT-C) How often do you have a drink containing alcohol?: Never SCORE: 0 Did patient elect to have resources provided: No Role of Care Management explained.Yes German Bautista LMSW [employer], Care Management R CENTER TECHNICIAN Marissa Keys MD - 08/25/2020 9:18 AM CST Date of Service: 08/25/2020 09:18 Chief Complaint: dysphagia/odynophagia SUBJECTIVE/ MAJOR EVENTS: Pt was seen and examined at bedside. He reports having good appetite and requesting to eat regular food. Explained to patient that we will have to cancel the EGD today, due to his hypokalemia and recent use of cocaine. However would recommend staying on clear liquid diet and NPO post midnight for possible EGD tomorrow. ROS: Constitutional: No weakness HEENT: No dry mouth CV: No chest pain Resp: No shortness of breath GI: no abdominal pain, +dysphagia, +odynophagia PHYSICAL EXAM: Temp: [35.1 C (95.2 F)-36.2 C (97.2 F)] Pulse: [47-70] Resp: [18] BP: (120-155)/(79-113) MAP (mmHg): [95-127] Intake/Output Summary (Last 24 hours) at 08/25/2020 09 Last data filed at 08/24/2020 2100 Gross per 24 hour Intake 100 ml Output Net 100 ml General: Patient is alert and oriented x4, No apparent distress, +cachectic Cardiovascular: Regular rate and rhythm, no murmurs; no LE edema. Respiratory: Clear to auscultation bilaterally. Abdomen: Nondistended, no surgical scars, inverted umbilicus, soft, no tenderness, no masses, normalbowel sounds. LABS/IMAGING - REVIEWED CURRENT MEDICATIONS - REVIEWED ASSESSMENT/PLAN Tahir Ag Jr. is a 35 year old Black or male with past medical history of Right inguinal hernia, Bipolar disorder, Schizophrenia, Depression, Anxiety, GERD who presents withcomplaints of dysphagia to solids and liquids with daily regurgitation episodes. Reports drug use ofcocaine, methamphetamines, marijuana. +40 lb unintentional weight loss. The plan was to get EGD today, however patient's K+ continues to be low at 2.0, team is working on repleting it with IV K+, also patient's last use of Cocaine was about 4 days ago. 1. Dysphagia to solids and liquids -esophageal stricture vs motility disorder such as achalasia -intermittent odynophagia and episodes of retrosternal chest pain -CT thorax showing distention of the esophagus with air fluid level, findings suggestive of possibleachalasia. Focal narrowing at GE junction -EGD cancelled today due to hypokalemia and recent cocaine use -continue to replete K+ with IV KCl with goal of at least 3.5 -Clear liquids today, NPO after midnight for EGD tomorrow morning pending correction of hypokalemia -will consider Esophageal Manometry in the future based on EGD's findindgs Patient was seen and discussed with Dr. Wang. Please call with questions. GI will continue to follow. Marissa Keys MD Gastroenterology and Hepatology PGY-[address] signed by Tab Wang MD at 08/26/2020 2:14 PM DONOR CENTER TECHNICIAN Associated attestation - Tab Wang MD - 08/26/2020 2:14 PM CSTI saw the patient with my fellow. I reviewed all pertinent data presented to me and I agree with theassessment and plan as outlined in the fellow's note. I also performed My own confirmatory history and physical exam independently on the patient as I personally formulated the GI plan of care. ? Tab Wang MD Lockstitch Topstitcherelectronics recycler Advanced Endoscopist Divison of Gastroenterology and Hepatology [facility] Gianni Aguilar MD - 08/25/2020 7:16 AM CST Nati Team Progress Note Date of Service: 08/25/2020 07:16 Chief Complaint: Dysphagia 24-HOUR EVENTS: [place] SUBJECTIVE: Patient not feeling too well this AM. Still having a lot of hunger. Not having a lot of pain but still "sore". PHYSICAL EXAM: Temp: [35.1 C (95.2 F)-36.7 C (98 F)] Pulse: [47-70] Resp: [18] BP: (120-155)/(79-113) MAP (mmHg): [95-127] Intake/Output Summary (Last 24 hours) at 08/25/2020 0716 Last data filed at 08/24/2020 2100 Gross per 24 hour Intake 150 ml Output Net 150 ml Gen: Appears to be in some distress. Is very agitated and restless HEENT: NC/AT, EOMI, P: CTAB CV: bradycardic, no MRG; Abd: Mild tenderness diffusely MSK: Moving all 4 extremities spontaneously Neuro: No gross deficits noted, peripheral sensation intact Skin: No peripheral edema, cyanosis, lesions noted LABS/IMAGING - reviewed, pertinent results as below: K 2.1>2.0->2.0 ASSESSMENT/PLAN Taihr Ag Jr. is a 35 year old male admitted to the hospital with: Dysphagia, possible Achalasia vs stricture GERD No CP, moderate heartburn, increasing PPI frequency. GI consulted for assitance with workup. No scope today given hypokalemia and recent cocaine use per GI. Will do CLD and NPO PM for scope tomorrow. -GI recs -PPI BID Hypokalemia Malnourishment Continue to replete K, no alarm sign on telemetry. Will do w/u for resistant hypokalemia. -KCL 40 meq IV x2 -Continue IVF -NPO Schizophrenia Bipolar disorder Pending medication list. Gianni Aguilar MD Internal Medicine PGY-1 END OF DAILY PROGRESS NOTE HOSPITAL COURSE Tahir Eric Ag Jr. is a 35 year old male with PMH of right inguinal hernia, bipolar, schizophrenia, GERD. Admitted for dysphagia and weight loss. Found to have GE junction narrowing, possible achalasia vs stricture. R CENTER TECHNICIAN Associated attestation - Ramila Johnson MD - 08/25/2020 2:04 PM CSTI personally examined the patient on 08/25/[address] Aguilar's resident note with the following addition(s): patient with severe dysphagia resulting in severe protein calorie malnutrition resulting with cachexia. He has persistent hypokalemia and now with hypernatremia given difficulty with administering IVF with agitation from drug withdrawal as well as anxiety form current medical condition. Will continue to aggressively replace potassium, IVF, monitor on telemetry. Noted vitamin D deficiency and will start therapy. Noted after rounds + syphilis serology and will discuss with patient past treatment. Lastly, start BZD to assist with anxiety/withdrawal and look up psych medications to start in the hospital. Once electrolytes stable plan EGD as per GI. I actively participated in the decision-making process. Please see the resident's note for additional details. Ramila Johnson MD 08/25/2020 2:04 PM Anand Aldana RN - 08/24/2020 4:02 PM CST Weekend Care Management Rapid Social Functional Assessment Admit Date: 08/23/2020 6:15 PM Patient Name: Tahir Ag Jr. Patient PCP: PATIENT DOES NOT HAVE A PCP Funding source: Payor: MEDICAID PENDING / Plan: MEDICAID PENDING / Product Type: Pending / Chief Complaint/Admitting Dx:VOMITING Activities of Daily Living: Independent Patient's prior living situation (please list location/company if applicable): Home Anticipated DME needs: BP cuff Any issues or concerns with obtaining/affording your medications at home: yes. Describe: no income,indigent. Are you or your support system able to belt picker medications at discharge: yes. Describe: Parents. Anticipated transportation at discharge: Family/significant other Patient/Family/MPOA/Caregiver concurs with proposed discharge plan: yes Name, Relationship to Patient and contact number of individual who will support patient at discharge: ODILIA Willams [phone] DC Plan: to home Patient provided with [facility], [employer] application and goodrx card JOSE LUIS Mobley, RN Weekend Office Director Available only on Tuesday, Tuesday and Tuesday. [facility] Care Management [email or web address]) [email or web address]) Keith Ward MD - 08/24/2020 7:36 AM CSTDaniels Team Progress Note Date of Service: 08/24/2020 07:37 Chief Complaint: Dysphagia 24-HOUR EVENTS: [place] SUBJECTIVE: Mild abdominal pain, hungry. PHYSICAL EXAM: Temp: [35.7 C (96.3 F)-36.8 C (98.2 F)] Heart Rate (monitor): [57-81] Pulse: [50-81] Resp: [12-18] BP: (117-144)/(85-116) MAP (mmHg): [97-120] No intake or output data in the 24 hours ending 08/24/20 0737 General: No acute distress Skin: no lesions, warm, good capillary fill. HEENT: PERRL, EOM normal, moist oral mucosa. Pulm: breath sounds normal CV: RRR no murmurs, pulses symmetrical 2+ in radials and dorsalis pedis. Abd: Soft, mild to moderate TTP over epigastrium BS normal. Ext: no edema Neuro: AOx4 no motor weakness. LABS/IMAGING - reviewed, pertinent results as below: K 2.1>2.0 ASSESSMENT/PLAN Tahir Ag Jr. is a 35 year old male admitted to the hospital with: Dysphagia, possible Achalasia No CP, moderate heartburn, increasing PPI frequency. GI consulted for assitance with workup. -GI recs Hypokalemia Malnourishment Continue to replete K, no alarm sign on telemetry -KCL 40 meq IV x2 -Continue IVF -FLD with thickeners and ensure as tolerated, possible NPO based on GI assessment. Schizophrenia Bipolar disorder Pending medication list. Patient was discussed and examined in the room with Dr. Elizabeth Flynn M.D. PGY3 - Internal Medicine Nati Team END OF DAILY PROGRESS NOTE HOSPITAL COURSE Tahir Ag Jr. is a 35 year old male with PMH of right inguinal hernia, bipolar, schizophrenia, GERD. Admitted for dysphagia and weight loss. Found to have GE junction narrowing, possible achalasia R CENTER TECHNICIAN Associated attestation - Ramila Johnson MD - 08/25/2020 6:16 AM DONOR CENTER TECHNICIAN personally examined the patient on 08/24/[address] Flynn's resident note as written. I actively participated in the decision-making process. Please see the resident's note for additional details.documented in this encounter H&P Notes Alexey Johnson MD - 08/24/2020 1:21 AM CDT ARCHANA Martinez Admit H&P PCP: PATIENT DOES NOT HAVE A PCP Date of Service: 08/24/2020 CHIEF COMPLAINT: Dysphagia HISTORY OF PRESENT ILLNESS Tahir Ag Jr. is a 35 year old male with a PMH of right inguinal hernia, bipolar disorder, schizophrenia, depression, anxiety, GERD, who presents with dysphagia, food regurgation, weight loss and abdominal pain. Patient reports that symptoms started back in March 2020 and they has been gett ing worse. Patient describes intermittent dysphagia for solid and liquids. Per patient the food get stuck in the middle of the chest and that triggers an acute sharp chest pain (substernal). Chest paincan happen also wo food and last 4 minutes (occurs at rest). Sometimes, he is able to keep solid food down but when he drinks any fluid (after eating) he regurgitate the food (noodles, pizza, bread etc) (including old food that he ate 3 days ago). Patient report not having actual nausea nor vomiting but food regurgitation. He recently was able to eat a burrito. Stated that sometimes methamphetamine/marihuana help with the dysphagia but not completely. Had a BM today (he didn't have one for 3 weeks). He also reports loosing 40 pounds over the last 3 months. His appetite is intact and he reports being hungry all the time. Patient also states that ever since he started loosing weight he started having sob on exertion (no cough, orthopnea) and lightheadedness when standing up. He also report fatigueever since his symptoms started. Patient denies fever, night sweats, rashes, cough, abdominal distention, diarrhea, melena, hematochezia, travel hx. Patient reported being incarcerated for 10 months and got out from long-term in March 2020. Report using IV methamphetamine and marihuana. Denies heroin, alcohol use. He was tested for HIV and hepatitis while he was in long-term and he was negative. In the ED patient was afebrile, 137/96, HR 81, RR 18. Hgb 11.1, MCV 86.8, K 2.1, BUN 13, creatinine 0.95, LFTs, troponin , lipase unremarkable. CXR unremarkable. CT T showing diffuse distended fluid filled esophagus with air fluid level + focal narrowing at the GE junction concerning for achalasia vs esophageal stricture. Also showed focal tree in bud nodularity of the middle lobe (nonspecific: infectious vs inflammatory). CT A/P shows a large right inguinal hernia wo signs of bowel obstruction. And a nonspecific segmental mural thickening and enhancement of the small bowel loop in the left mid abdomen. Past medical history: has a past medical history of Bipolar 1 disorder, GERD (gastroesophageal reflux disease), Manic affective disorder with recurrent episode, and Schizophrenia. Past surgical history: has no past surgical history on file. Social history: Family history: family history is not on file. Allergies: No Known Allergies MEDICATIONS Prior to Admission medications Medication Sig Start Date End Date Taking? Authorizing Provider divalproex sodium (DEPAKOTE ORAL) Take by mouth. Doctor Unassigned, [place] guanfacine HCl (TENEX ORAL) Take by mouth. Doctor Unassigned, [place] sertraline HCl (ZOLOFT ORAL) Take by mouth. Doctor Unassigned, [place] No current facility-administered medications on file prior to encounter. Current Outpatient Medications on File Prior to Encounter Medication Sig Dispense Refill divalproex sodium (DEPAKOTE ORAL) Take by mouth. guanfacine HCl (TENEX ORAL) Take by mouth. sertraline HCl (ZOLOFT ORAL) Take by mouth. Review of Systems Constitutional: +weakness, weight loss,denies fever/chills HEENT: denies dry eyes, redness, eye pain, change in vision CV: +CP, denies chest pressure, or palpitations Resp: denies SOB and dyspnea on exertion GI: +abdominal pain, n/v, denies diarrhea, or constipation : denies dysuria, hematuria MSK: denies new muscle aches, denies joint pain Skin: denies new rashes Neuro: denies weakness, numbness, and tingling sensation Endo: denies heat/ cold intolerance Hemat: denies blood clots, easy bruising, or bleeding Psych: denies anxiety, depression, or hallucination PHYSICAL EXAMINATION Vitals: 08/23/20 2200 08/23/20 2323 08/24/20 0000 08/24/20 0131 BP: (!) 117/92 (!) 144/98 (!) 124/98 (!) 131/95 Pulse: 60 53 72 54 Resp: 13 18 18 18 Temp: 35.7 C (96.3 F) TempSrc: Oral SpO2: 100% 99% 99% Weight: Height: PE General: patient alert and in no acute distress Eyes: PERRL and EOMI Neck: supple, no bruit, no lymphadenopathy or thyromegaly Cardiovascular: Heart regular, rate, rhythm, no murmurs; no edema Respiratory: clear to auscultation bilaterally, no respiratory distress Abdomen: abdomen soft, tender to palpation diffusely but non-distended, decreased BS. R large inguinal hernia (nonreducible) present. Musc: no spinal or paraspinal TTP, no joint effusions Skin: intact and warm, dry Neuro: alert and oriented times three, power grossly intact all over, no focal deficits Psych: cooperative and mood/affect normal LABS - reviewed pertinent labs as below: Recent Results (from the past 24 hour(s)) COVID-19 (ID NOW RAPID TESTING) Collection Time: 08/23/20 7:11 PM Specimen: NASOPHARYNGEAL SWAB Result Value Ref Range SARS-CoV-2 Rapid ID NOW Not Detected Not Detected CBC with Differential Collection Time: 08/23/20 7:52 PM Result Value Ref Range WBC 6.36 4.20 - 10.70 10*3/L RBC 3.85 (L) 4.26 - 5.52 10*6/L HGB 11.1 (L) 12.2 - 16.4 g/dL HCT 33.4 (L) 38.4 - 49.3 % MCV 86.8 81.7 - 95.6 fL MCH 28.8 26.1 - 32.7 pg MCHC 33.2 31.2 - 35.0 g/dL RDW-SD 45.6 38.5 - 51.6 fL RDW-CV 14.4 12.1 - 15.4 % PLT 201 150 - 328 10*3/L MPV 11.5 9.8 - 13.0 fL NRBC/100 WBC 0.0 0.0 - 10.0 /100 WBCs NRBC x10^3 <0.01 10*3/L GRAN MAT (NEUT) % 49.9 % IMM GRAN % 0.30 % LYMPH % 43.2 % MONO % 6.1 % EOS % 0.3 % BASO % 0.2 % GRAN MAT x10^3(ANC) 3.17 1.99 - 6.95 10*3/uL IMM GRAN x10^3 <0.03 0.00 - 0.06 10*3/uL LYMPH x10^3 2.75 1.09 - 3.23 10*3/uL MONO x10^3 0.39 0.36 - 1.02 10*3/uL EOS x10^3 <0.03 (L) 0.06 - 0.53 10*3/uL BASO x10^3 <0.03 0.01 - 0.09 10*3/uL Basic Metabolic Panel (NA, K, CL, CO2, GLUCOSE, BUN, CREATININE, CA) Collection Time: 08/23/20 7:52 PM Result Value Ref Range NA 142 135 - 145 mmol/L K 2.1 (LL) 3.5 - 5.0 mmol/L CL 104 98 - 108 mmol/L CO2 TOTAL 35 (H) 23 - 31 mmol/L AGAP 3 2 - 16 BUN 13 7 - 23 mg/dL GLUCOSE 73 70 - 110 mg/dL CREATININE 0.95 0.60 - 1.25 mg/dL CALCIUM 8.7 8.6 - 10.6 mg/dL eGFR Calculation (Non-) 89.7 mL/min/1.73m2 eGFR Calculation () 108.7 mL/min/1.73m2 Hepatic Function Panel (ALB, T.PRO, BILI T, BU/BC, ALT, AST, ALK PHOS) Collection Time: 08/23/20 7:52 PM Result Value Ref Range TOTAL BILI 0.9 0.1 - 1.1 mg/dL BILI UNCON 0.7 0.1 - 1.1 mg/dL BILI CONJ 0.0 0.0 - 0.3 mg/dL T PROTEIN 6.8 6.3 - 8.2 g/dL ALBUMIN 3.2 (L) 3.5 - 5.0 g/dL ALK PHOS 55 34 - 122 U/L ALTv 32 5 - 50 U/L AST(SGOT) 48 (H) 13 - 40 U/L Lipase Serum Collection Time: 08/23/20 7:52 PM Result Value Ref Range LIPASE 248 (H) 0 - 220 U/L Troponin I Collection Time: 08/23/20 7:52 PM Result Value Ref Range TROPONIN I 0.014 <=0.034 ng/mL MAGNESIUM Collection Time: 08/23/20 7:52 PM Result Value Ref Range MAGNESIUM 2.4 1.7 - 2.4 mg/dL IMAGING - reviewed, pertinent results as below: Hospital Encounter on 08/23/[address] thorax with contrast Narrative CT THORAX W CONTRAST HISTORY: 35 years-old; Male; Chest pain or SOB, pleurisy or effusion suspected dysphagia, weight loss, vomiting, globus sensation COMPARISON: None TECHNIQUE: Helical CT was performed of the chest (lung apices to bases) using 120 mL Omnipaque-350 nonionic intravenous contrast, without complications. Images were reconstructed at 1.0 slice thickness. Axial MIPs and coronal and sagittal MPR images were generated and reviewed. DFOV = 31 cm. FINDINGS: Lower neck/thyroid: Unremarkable. Lungs: Multiple pleural-based lung nodules are noted in the left lower lobe measuring up to 7 mm (14:46). Solid pulmonary nodules are also seen in the left lower lobe measuring 6 mm (14:44) and right middle lobe measuring 6 cm (14:59). Focus of tree-in-bud nodularity is noted in the superior segment of right middle lobe (14:75). Central airway: Unremarkable. Pleura: No pleural effusion, thickening or pneumothorax. Thoracic aorta and great vessels: The normal three vessel branching pattern is identified off of the aortic arch. The aorta is normal in diameter. Pulmonary arteries: Normal in caliber. Heart and pericardium: No detectable coronary arterial calcifications are present. Dilated left ventricle. Lymph nodes: No enlarged thoracic lymph nodes. Mediastinum: Diffuse distention of fluid-filled esophagus is noted measuring up to 5.8 cm in transverse diameter in the mid segment with air-fluid level. No distinguishable or nodular thickening is identified. Areas of layering calcification are seen along the posterior wall of the esophagus more distally. Thoracic spine and chest wall: No aggressive osseous lesion is identified. Other Lines/Tubes/Devices/Hardware: None Visualized upper abdomen: Abnormal reflux of contrast is noted into the hepatic IVC and hepatic veins. Impression 1. Marked distention of the esophagus measuring up to 3.8 cm in transverse diameter with air-fluid level. The findings are nonspecific but suggestive of achalasia. Focal narrowing at the GE junction is suspected on 4:55. Correlation with clinical history is recommended; alternatively, esophageal barium study or endoscopy can be obtained nonemergently to further assess. 2. Bilateral solid nodules measuring 6 mm in the left lower and right middle lobes. If the patient is in high-risk category (family history of lung cancer, history of smoking) an optional CT can be considered in 12 months to document stability. 3. Focal tree-in-bud nodularity of right middle lobe, nonspecific and may represent an underlying evolving infectious/inflammatory process. The findings of this study, including achalasia, have been discussed with and acknowledged by KASIA Lott over the phone on 08/23/2020 at 9:50 PM with readback. Preliminary Report Dictated by Resident: Jayy Manzo I, Sienna Mcmanus MD., have reviewed this study and agree with the above report. CT ABDOMEN PELVIS W CONTRAST Narrative EXAM: CT ABDOMEN AND PELVIS WITH CONTRAST HISTORY: C/O N/V and abdominal pain x 2 months with weakness. ?States "I have?lost 45 pounds in 2 months". States"I haven't had a BM in 3 weeks". COMPARISON: None. TECHNIQUE AND FINDINGS: Contiguous axial imaging from the level of the lung bases through the proximal thighs was performed after the administration of intravenous Omnipaque contrast. Coronal and sagittal reconstructions were obtained. Auto mA and/or iterative reconstruction were used to reduce radiation dose. FINDINGS: Limited evaluation of the abdominal pelvic organs due to paucity of intra-abdominopelvic fat. LOWER THORAX: Please refer to concurrently obtained but separately dictated CT chest for thoracic findings. Significantly distended distal thoracic esophagus by pneumatized content. LIVER: Heterogenous appearance of the hepatic parenchyma is seen, likely perfusional. Normal contour. Nonspecific mild periportal edema. GALLBLADDER AND BILIARY TREE: No biliary ductal dilation. No gallbladder wall thickening. SPLEEN: No splenomegaly. A 1.3 cm splenule is seen (602:50). PANCREAS: No ductal dilation or masses. ADRENAL GLANDS: No adrenal nodules. KIDNEYS: No hydronephrosis, stones, or masses. PERITONEUM AND RETROPERITONEUM: No free air . Trace volume of intraperitoneal fat fluid is suggested about the right paracolonic gutter (602:69). Large right inguinal hernia containing small bowel loops. LYMPH NODES: No lymphadenopathy. GI TRACT: Abnormally thickened small bowel loop is seen in the left midabdomen (602:67) PELVIS/BLADDER: Unremarkable. VESSELS: Unremarkable. BONES AND SOFT TISSUES: No suspicious lytic or sclerotic bony lesions. Impression 1. Abnormally distended distal thoracic esophagus by pneumatized content is seen. This can be observed with achalasia or gastroesophageal stricture/narrowing. Clinical correlation is recommended. 2. Large bowel containing right inguinal hernia. No signs suggestive of bowel obstruction. Nonspecific segmental mural thickening and enhancement of the small bowel loop in the left mid abdomen is noted. 3. Questionable hypoattenuation in the right paracolonic gutter suggestive of trace volume ascites. Preliminary Report Dictated by Resident: Sienna Velazquez MD., have reviewed this study and agree with the above report. Chest 1 View Narrative EXAM: XR CHEST 1 VW HISTORY: 35 years-old; Male; malaise COMPARISON: None FINDINGS: Lungs/Pleura: The lungs are clear with no focal consolidation. There is no pleural effusion or pneumothorax. Heart/Mediastinum: The cardiomediastinal silhouette is normal. No acute osseous structure abnormality. Bilaterally humeral pedunculated outgrowth arising from the proximal metadiaphysis which is contiguous with the medullary cavity. Impression No acute cardiopulmonary abnormality. Bilateral humeral osteochondroma. Preliminary Report Dictated by Resident: Sienna Castroargava, MD., have reviewed this study and agree with the above report. EKG: Pending CHART REVIEW: pertinent information as below: Refer to HPI ASSESSMENT/PLAN Tahir Ag Jr. is a 35 year old male with PMH as listed above, admitted to the hospital with: Dysphagia AP Large R inguinal hernia Weight loss GERD hx Hypokalemia Patient presenting with intermittent dysphagia (solid/liquids), weight loss and substernal CP. CT Tshowing diffuse distended fluid filled esophagus with air fluid level + focal narrowing at the GE junction concerning for achalasia vs esophageal stricture. CP might be related to dysphagia in the setting of normal EKG, negative troponins and no family hx. DDx includes achalasia, pseudoachalasia, esophageal spasm (given hx of anxiety and sporadic CP wo food), esophageal stricture vs esophageal rings (hx of GERD). As per his diffuse abdominal pain, CT A showed R inguinal hernia wo signs of bowel obstruction and a nonspecific segmental mural thickening and enhancement of the small bowel loop in the left mid abdomen. The latter might be signs of early colitis given that patient drink unfiltered waterfrom a well. Will hold off on any abx given no fever, leukocytosis or diarrhea. -Admit to [facility] -HIV, syphilis, Hepatitis B, C, TB Quantiferon -FIT test -IV pantoprazole given dysphagia -GI consult for EGD -Speech consult for barium swallow -Will not treat empirically with CCBs given ongoing Dysphagia -Nutrition consult -NPO -Maintenance fluids D5/LR running 75ml/hr -Vitamin B12, folate, iron panel, D -Pre albumin -UDS. No need for BC given no fever, leukocytosis -Consider consulting general surgery for R inguinal hernia SOB on exertion Lightheadedness CXR and CT T unremarkable for acute findings. Currently sat 98 and no tachycardic. SOB might 2/2 to dehydration given lightheadedness that occurs when he stand up. -Orthostatics -C/w fluids as stated above. Polysubstance abuse (IV) Schizophrenia Bipolar disorder Patient does not remember the exact name of his medications. He will contact his parents in the morning. -Get medication list. Pain Not an active problemTylenol Prophylaxis: DVT- enoxaparin Stress Ulcer: pantoprazole Code Status: Full code Alexey Nur-Jerry, MD 08/24/2020 1:21 AM R CENTER TECHNICIAN Associated attestation - Clarice Peoples MD - 08/24/2020 5:23 AM CSTI personally examined the patient on 08/24/[address] Johnson's resident H&P note as written. I actively participated in the decision- making process. Please see the resident's note for additional details. Clarice Peoples MD 08/24/2020 5:23 AM documented in this encounter Consult Notes Ariella Pal MD - 08/27/2020 8:02 PM CSTAssociated Order(s): CONSULT PSYCHIATRY DEPARTMENT OF PSYCHIATRY AND BEHAVIORAL SCIENCE Inpatient Psych/Consult Evaluation [id number] Tahir Ag Jr. 1985 [facility] [id number] 08/27/2020 REASON FOR CONSULT: "Please give recommendation or opinion on: Tahir Ag Jr. is a 35 year old male with dysphagia suspicious for achalasia vs stricture. Has a hx of schizophrenia, bipolar disorder, and substance abuse hx. Restarting home meds that he has been off of for a while and trying to control substance use disorder given high risk for procedure he needs. " REQUESTING PHYSICIAN/ CONTACT INFORMATION: Dr. Aguilar and Dr. Johnson CHIEF COMPLAINT: " I'm hungry" HISTORY OF PRESENT ILLNESS: (severity, timing, modifying factors, quality, duration/clinical course,context, associated signs and symptoms) Tahir Ag Jr. is a 35 year old male with a past psychiatric history of schizophrenia, bipolar disorder and substance abuse who is admitted to the hospital for evaluation of dysphagia. Psychiatry was consulted for opinion about medication management in context of worsening agitation aggravated by current medical restrictions. When initially approached patient he reports "I'm ok", then gets tearful and states he's "not ok" and reports this because of significant frustration being unable to eat solid food. He reports "I haven't eaten in a whole week" and reports he has been on IV fluids for a week. He reports he tried to comply with the liquid diet, but he repeatedly throws the liquid up. He reports he is extremely hungry. Reports he has lost 40 lbs since dysphagia started. Patient reports understanding of needing procedure, but reports it keeps getting pushed back and he reports many hours go by before he is updated on plans. He reports frustration because he feels like he is being "treated like a kid", stating "they'realways watching me" to see if I am sneaking food or leaving to do drugs and states this is making him feel "uncomfortable". He states he wants to go downstairs for a change in scenery and he is tired of seeing the same people on the floor. He adamantly denies that he would leave the hospital to do drugs. He reported he went all day without eating and around 4:00 PM when he was told about the restrictions he states his hands, arms and legs started cramping which lasted about 20 minutes. But states that this resolved once he drank some orange juice. He denies this ever happening before and thinks it happened because he hadn't eaten. When asked about visual hallucinations, patient reports something about talking to things that aren't there while looking out the window, but when asked further to clarify, he reports he actually just looked out the window and audibly expressed frustration about his current situation. States that he has been getting so upset with the "way the team is treating him like a kid" that he is hearing voicesto "leave the hospital" otherwise he feels he may hurt himself or others. He reports "I feel like I am, but I don't want to!" and becomes tearful. Reports that these are voices and not thoughts in his head. Patient reports his current situation in the hospital reminds him of is relationship with his pa rents at home. He reports that he hears similar voices at home when he gets frustrated with his parents. He reports he has been feeling very emotional, but mainly because he can't eat solid food as he desires. He reports if he can just get a burger or ice cream tonight, he will be fine and comply to NPO diet tomorrow. Reports a history of psychiatric illness since age 31. Reports he was previously diagnosed with schizophrenia and bipolar, anxiety, and depression. He has been taking psychotropic medications from [facility]. He reports medications have been very helpful for him. He reports right now, in acute situations, medications like Xanax help most to calm him down. Psych medications were restarted todayby primary team, but patient reports he had been off of his medications for past 1.5-2 months and hewas not doing well off medications. Patient endorses cocaine and meth use, reports he last used before admission and has not used since. He reports he felt he was honest with the team about this, but now he is being punished for it and feels as if he is being labeled as a drug addict. Patient reports that he uses these drugs infrequently and not daily. Reports he has been using cocaine since age 17 and meth for the last 1-2 years. Patient's reports he does hear voices outside of drug use. Reports inpast he has thought his house was wired. Of note when leaving room, noticed a chikfila sandwich next to pt's food tray. PAST PSYCHIATRIC HISTORY: Diagnoses: Schizophrenia, Bipolar, substance use Inpatient: unknown Outpatient: [facility] Current Psychiatric Meds: Zoloft 200 mg daily, Geodon 80 mg BID, Guanfacine 1 mg BID, Depakote EC tab 750 mg BID, Ativan 0.5 mg BID Previous Psychiatric Meds: unknown PSYCHIATRIC REVIEW OF SYSTEMS: Depression: endorses in context of current situation (being unable to eat) Tiffany: DENIES Anxiety/Panic: endorses in context of current situation (being unable to eat) A/V Hallucinations: endorses in context of current situation (being unable to eat) Delusions: DENIES Suicidal Ideation: see HPI Homicidal Ideation: see HPI PAST MEDICAL HISTORY: Past Medical History: Diagnosis Date Bipolar 1 disorder GERD (gastroesophageal reflux disease) Manic affective disorder with recurrent episode Schizophrenia No past surgical history on file. MEDICATIONS: Current Facility-Administered Medications Medication Dose Route Frequency Last Rate Last Admin D5W IV infusion 1,000 mL 1,000 mL IV Infusion CONTINUOUS 100 mL/hr at 08/27/20 0827 1,000 mL at110/27/19 0827 nicotine (NICODERM) 7 mg/24 hr patch 1 Patch 1 Patch Topical Q24H 1 Patch at 08/27/20 1211 divalproex (DEPAKOTE) EC tablet 750 mg 750 mg Oral BID 750 mg at 08/27/20 0803 ergocalciferol (vitamin d2) (CALCIFEROL) capsule 50,000 Units 50,000 Units Oral QWEEKLY 50,000 Units at 08/27/20 08 guanFACINE (TENEX) tablet 1 mg 1 mg Oral BID 1 mg at 08/27/20 08 pantoprazole (PROTONIX) 2 mg/mL oral suspension 40 mg 40 mg Oral BID 40 mg at 08/27/20 08 SERTraline (ZOLOFT) tablet 200 mg 200 mg Oral DAILY 200 mg at 08/27/20 08 ziprasidone (GEODON) capsule 80 mg 80 mg Oral BID MEALS 80 mg at 08/27/20 180 LORazepam (ATIVAN) tablet 0.5 mg 0.5 mg Oral BID 0.5 mg at 08/27/20 08 enoxaparin (LOVENOX) injection 40 mg 40 mg Subcutaneous DAILY 40 mg at 08/27/20 08 SIDE EFFECTS/ALLERGIES: No Known Allergies SOCIAL HISTORY: Lives with parents FAMILY PSYCHIATRIC HISTORY: Unknown FAMILY MEDICAL HISTORY: No family history on file. VITAL SIGNS: BP (!) 127/93 (BP Location: Right arm, Patient Position: Sitting) | Pulse 58 | Temp 35.7 C (96.2F) (Oral) | Resp 18 | Ht 5' 6" (1.676 m) | Wt 110 lb (49.9 kg) | SpO2 99% | BMI 17.75 kg/m LAB DATA CBC BMP PT/INR WBC (10*3/L) Date Value 08/23/2020 6.36 NA (mmol/L) Date Value 08/27/2020 145 No results found for: PT RBC (10*6/L) Date Value 08/23/2020 3.85 (L) K (mmol/L) Date Value 08/27/2020 3.5 No results found for: PTINR PLT (10*3/L) Date Value 08/23/2020 201 CALCIUM (mg/dL) Date Value 08/27/2020 8.4 (L) HGB (g/dL) Date Value 08/23/2020 11.1 (L) CL (mmol/L) Date Value 08/27/2020 109 (H) aPTT HCT (%) Date Value 08/23/2020 33.4 (L) BUN (mg/dL) Date Value 08/27/2020 4 (L) No results found for: APTTPAT CREATININE (mg/dL) Date Value 08/27/2020 0.76 MENTAL STATUS EXAM: COMMENTS: cooperative with exam GAIT AND STATION: СЕРГЕЙ APPEARANCE: appears thin, casually dressed, wearing teri cowboys mask ATTITUDE: Cooperative and Attentive BEHAVIOR: Psychomotor Normal and Psychomotor Agitated SPEECH: Emotional and Loud LANGUAGE: Normal MOOD: "not ok" AFFECT: Frustrated THOUGHT PROCESS: Logical Directed THOUGHT CONTENT: Without Delusions SUICIDAL: patient reports he hears voices to leave hospital otherwise he feels he may hurt himself or others but then states he doesn't want to VIOLENT/HOMICIDAL: patient reports he hears voices to leave hospital otherwise he feels he may hurthimself or others but then states he doesn't want to PERCEPTUAL: Reports Auditory Hallucinations recently but not currently COGNITION: LEVEL OF CONSCIOUSNESS: Full ORIENTATION: Oriented x 4 RECENT AND REMOTE MEMORY: Intact INTELLIGENCE: Average FUND OF KNOWLEDGE: Average ATTENTION AND CONCENTRATION: Good JUDGEMENT: Impaired INSIGHT: Fair ASSESSMENT/FORMULATION: Tahir Ag JrYanira is a 35 year old male with a reported past psychiatric history of schizophrenia, bipolar and substance use disorder. Patient was admitted for dysphagia. Psychiatry was consulted for recs for management of agitation in context of medical restrictions for upcoming procedure. Patient reports understanding of needing procedure, but also expresses significant frustration directly related to restrictions on eating. Patient reported psychotic symptoms/SI/HI do not appear consistentwith active psychosis related to psychiatric illness, as they appear in context of his frustration with the team and primarily the limitations about food. He endorses similar symptoms with frustration with his parents at home. Potential behavioral component/ possible cluster B traits. Patient with + UDS on admission, also likely withdrawing from substances which can play significant role in mood fluctuation. Patient already restarted on home psych meds, recommend continuation and if patient does become acutely aggressive/psychotic, can administer IM meds PRN, BID. There was some concern about dystonia when patient reported cramping of hands, arms and legs, but he reported it resolved with drinkingorange juice. Patient had no dystonia evident on exam today and denies hx of this. SUICIDE RISK ASSESSMENT: The patient screens positive if bolded. Risks: SI, depression, guns at home, sleep, marital/employment status, h/o trauma, ongoing medical issues, age(15-24; above 60), substance use, past attempts Protective: no intent or plan to harm self, family support, reasons for living Overall: Elevated risk compared to general population Recommendations/Plan: - Recommend continuing current home psych meds - Can consider Haldol 5 mg/Ativan 2 mg PRN up to BID for acute agitation/psychosis if redirection fails - QTc prior to restarting Geodon was 458, patient also with recent hypokalemia, recommend to monitorclosely as he may have increased risk of arrhythmia -Administer Geodon with meals of at least 500 calories - Discussed diet concerns with primary team, patient is to avoid solid foods due to concern for stricture - Patient recommended to follow up with [facility] Outpatient Psychiatry ([place]): [phone], ([place]): [phone] or [facility]: or [facility]: or [facility]: [phone] s/p hospital discharge for psychiatric medications - FU with [facility] s/p hospital discharge for psychiatric medications - Referral to [facility] [phone] [place]: [phone]; [place]: [phone] s/p hospital discharge - FU with [facility] (The Department of Assistive and Rehabilitative Services): [phone] for work assistance - If the patient feels in danger, suicidal, pt can contact these suicide hotlines or or to go to the nearest emergency department. - Psychiatry will continue to follow Patient discussed and seen with Dr. Rosado, Psychiatry faculty, who agrees with the assessment and plan. Ariella Pal MD PGY-2 Department of Psychiatry C/L Pager # [phone] R CENTER TECHNICIAN Associated attestation - Gianni Rosado MD - 08/28/2020 10:12 AM DONOR CENTER TECHNICIAN The resident examined the patient in person. I examined this patient via telepsychiatry, discussed the case with the resident, and directed the medical decision-making. I agree with the resident note. Diagnosis is schizophrenia. Verbal consent was obtained from patient for telehealth services below due to COVID-19 Pandemic. The visit was conducted via telephone with audio and video. 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 Johnson were dysphagia. Present on Admission: Dysphagia Hypokalemia Bipolar 1 disorder PMH/PSH: Past Medical History: Diagnosis Date Bipolar 1 disorder GERD (gastroesophageal reflux disease) Manic affective disorder with recurrent episode Schizophrenia No past surgical history on file. Current Medical Status: Per H&P: Tahir Ag Jr. is a 35 year old male with a PMH of right inguinal hernia, bipolar disorder, schizophrenia, depression, anxiety, GERD, who presents with dysphagia, food regurgation, weight loss and abdominal pain. Patient reports that symptoms started back in March 2020 and theyhas been getting worse. Patient describes intermittent dysphagia for solid and liquids. Per patient the food get stuck in the middle of the chest and that triggers an acute sharp chest pain (substernal). Chest pain can happen also wo food and last 4 minutes (occurs at rest). Sometimes, he is able to keep solid food down but when he drinks any fluid (after eating) he regurgitate the food (noodles, pizza, bread etc) (including old food that he ate 3 days ago). Patient report not having actual nausea nor vomiting but food regurgitation. He recently was able to eat a burrito. Stated that sometimes methamphetamine/marihuana help with the dysphagia but not completely. Had a BM today (he didn't have one for 3 weeks). He also reports loosing 40 pounds over the last 3 months. His appetite is intact and he reports being hungry all the time. Patient also states that ever since he started loosing weight hestarted having sob on exertion (no cough, orthopnea) and lightheadedness when standing up. He also report fatigue ever since his symptoms started. I have reviewed Dr. Aguilar's progress note dated 08/25 and additional EPIC documentation for an understanding of the patient's current medical condition and plan of care. GI and Nutrition Related Findings: Symptoms: Nausea(-), Vomiting(+), Constipation(-), Diarrhea(-), Abdominal Pain(+) Difficulty: Chewing(-), Swallowing(+) GI tract alteration: N/A Alternative means of nutrition: N/A General: N/A Medications: I have reviewed the medications currently ordered in the EMR located under the medications andMAR tabs. Current medications include: Current Facility-Administered Medications: D5W-LR IV infusion 1,000 mL, 1,000 mL, IV Infusion, CONTINUOUS, Alexey Coffey MD, LastRate: 125 mL/hr at 08/25/20 1112, 1,000 mL at 08/25/20 1112 KCL (POTASSIUM CHLORIDE) 40 mEq in NaCl 0.9% (NS) 100 mL piggyback, 40 mEq, IV Piggyback, ONCE,Alexey Johnson MD KCL (POTASSIUM CHLORIDE) 40 mEq in NaCl 0.9% (NS) 100 mL piggyback, 40 mEq, IV Piggyback, ONCE,Alexey Johnson MD KCL (POTASSIUM CHLORIDE) 40 mEq in NaCl 0.9% (NS) 100 mL piggyback, 40 mEq, IV Piggyback, ONCE,Alexey Johnson MD KCL 20 mEq/15 mL solution 40 mEq, 40 mEq, Oral, TID, Gianni Aguilar MD LORazepam (ATIVAN) tablet 0.5 mg, 0.5 mg, Oral, BID, Gianni Aguilar MD, 0.5 mg at 08/25/20 1112 LORazepam (ATIVAN) tablet 0.5 mg, 0.5 mg, Oral, ONCE, Gianni Aguilar MD enoxaparin (LOVENOX) injection 40 mg, 40 mg, Subcutaneous, DAILY, Alexey Coffey MD, 40mg at 08/25/20 0846 pantoprazole (PROTONIX) 40 mg in NaCl 0.9% (NS) 100 mL MINI-BAG, 40 mg, IV Piggyback, BID, Keith Montes MD, 40 mg at 08/25/20 0845 Lab and Medical Test Results: 08/23/2020 19:52 08/24/2020 04:03 08/25/2020 00:28 NA 142 144 148 (H) K 2.1 (LL) 2.0 (LL) 2.0 (LL) CL 104 105 107 CO2 TOTAL 35 (H) 33 (H) 34 (H) AGAP 3 6 7 BUN 13 11 8 GLUCOSE 73 74 101 CREATININE 0.95 0.97 0.87 eGFR CALCULATION () 108.7 106.1 120.3 08/24/2020 04:03 FOLATE SER 4.3 VIT B12 474 FERRITIN 183.0 TSH 1.14 CRP 0.2 08/23/2020 19:52 WBC x10^3 6.36 RBC x10^6 3.85 (L) HGB 11.1 (L) HCT 33.4 (L) MCV 86.8 MCH 28.8 MCHC 33.2 RDW-SD 45.6 RDW-CV 14.4 PLT x10^3 201 Intake/Output Summary (Last 24 hours) at 08/25/2020 1001 Last data filed at 08/24/2020 2100 Gross per 24 hour Intake 100 ml Output Net 100 ml Nutrition Assessment: Age: [age] year old Sex: male Ht: 1.67 m / 5' 6" Ht Readings from Last 3 Encounters: 08/23/20 1.676 m (5' 6") 05/02/20 1.676 m (5' 6") Current Wt: 49.9 kg/ 110 lb BMI: Body mass index is 17.75 kg/m. (Underweight) IBW for Ht: 64.5 kg +/- 6.5 kg (based on [place]) %IBW: 77% Weight History: Wt Readings from Last 10 Encounters: 08/23/20 49.9 kg (110 lb) 05/02/20 63.5 kg (140 lb) 01/10/19 72.6 kg (160 lb) Inflammatory Markers: N/A Current Dietary Order(s): Ensure High Protein (0.7 kcal/mL, protein 41% of kcal) Clear Liquid Diet; Food Sensitivity Modifiers: No Red Dye. EMR documented food allergies/intolerance/cultural preferences: N/A Nutrition & Diet History: Patient denies N/D/C. He complains of vomiting which he describes more as regurgitation of his food and swallowing difficulties which have been ongoing for about 6 months. His swallowing difficulties occur with both solid foods and liquids. Patient also complains of abdominal pain for past 3 days. He reports a 40# weight loss in the past 3 months. States his usual body weight is 160-165# which he believes he last weighed in March 2020. Per chart weight history, patient has lost 30# (21%) in ~4 months. Patient reports a good appetite stating that he is hungry and has not had solid food since Tuesday (08/22). States that when he is at home he eats all day long but immediately throws up/regurgitates whatever he eats after eating it. He complains that thin liquids are harder for him to swallow and more often cause regurgitation. Thicker liquids such as creamy soups or ensure are easier for him to tolerate. He states he is able to tolerate some foods such as popcorn, peanuts, pecans, chips, and meat aslong as he doesn't drink liquids with them. Patient reports limited financial resources to purchase food because he is unemployed. He expressed interest in meeting with social work to discuss resourcesfor food assistance. Patient agreeable to using thickener with liquids to try and improve tolerance.Patient agreeable to Ensure supplementation while in hospital and prefers chocolate flavor. Severe orbital, buccal, and triceps subcutaneous fat loss, and moderate temporalis and interosseous muscle loss were apparent upon visual examination of the patient. Estimated Daily Nutritional Needs: Calories: (IBW MSJ*1.2-1.4)= 6572-8193 kcal/day = 37-43 kcal/kg current wt = 28- 33 kcal/kg IBW Protein: 11-14 % of kcal need/day = 52-65 g/day = 1-1.3 g/kg current wt = 0.8-1 g/kg IBW Fluid: ~1613 mL/day or per MD; adjust per acute needs Nutrition Diagnosis: Swallowing difficulty related to suspected achalasia as evidenced by patient report of regurgitationand feeling of food getting stuck. Chronic condition related (severe) malnutrition related to diminished intake 2/2 swallowing difficulty as evidenced by 30# (21%) unintentional weight loss in past 4 months, and severe subcutaneous fat loss (orbital, buccal, triceps region). Nutrition Plan of Care: Intervention(s): 1. Recommend Regular Diet, texture per CAMP MAINTENANCE SUPERVISOR or GI, once medically appropriate 2. Recommend Ensure Enlive supplementation TID to increase calorie and protein intake. Pt prefers chocolate flavor 3. Recommend referral to social work for food assistance resources 4. Recommend thickener packets so patient can thicken liquids for better tolerance 5. Recommend CAMP MAINTENANCE SUPERVISOR consult to determine appropriate food texture and liquid thickness for patient Goal(s): 1. The patient will eat at least 75% of all provided meals without any intolerances. 2. The patient will drink at least one Ensure Enlive per day. 3. Weight maintenance D/C Planning: TBD Nutrition Monitoring and Evaluation: A registered dietitian/rn international will f/u as indicated to report nutrition related informationand to revise the recommended nutrition intervention(s); please call with questions or concerns, thank-you. Brandy Mcgovern Patents Examiner RD Office: [phone] R CENTER TECHNICIAN Associated attestation - Lisa Summers - 08/25/2020 3:40 PM CSTI agree with the assessment and recommendations for this patient by Brandy Mcgovern, Patents Examiner,on 08/25/20. Lisa Summers MS, RD, LD Clinical Dietitian Office: [phone] Marissa Keys MD - 08/24/2020 9:42 AM CSTAssociated Order(s): CONSULT GASTROENTEROLOGY Department of Gastroenterology & Hepatology Consult Note Requesting Physician: Clarice Peoples MD Service: IM Reason for Consultation: Dysphagia Date of Service: 08/24/2020 CHIEF COMPLAINT: Difficulty swallowing History of Present Illness Tahir Ag Jr. is a 35 year old Black or male with past medical history of Right inguinal hernia, Bipolar disorder, Schizophrenia, Depression, Anxiety, GERD who presents withcomplaints of dysphagia to solids and liquids with daily regurgitation episodes. These symptoms started in March 2020. It was an abrupt occurrence and not progressive. States that he was dx with GERD 10years ago. Never had an EGD. He is also reporting 40 lb unintentional weight loss. Pt describes intermittent dysphagia to solids and liquids with things getting stuck in the retrosternal region associated with chest pain that might last for a few minutes. He reports regurgitation of undigested food. De nies nausea, vomiting. States that he was not having bowel movements in the past couple of weeks, however had one yesterday which was normal, no melena or hematochezia. Pt reports no changes in his medications, however states that he has been using drugs including cocaine and methamphetamines, marijuana most of his life. Last use was couple of days ago. FH: no gastric cancer, no motility disorders. Mother hypothyroidism PAST MEDICAL HISTORY Past Medical History: Diagnosis Date Bipolar 1 disorder GERD (gastroesophageal reflux disease) Manic affective disorder with recurrent episode Schizophrenia PAST SURGICAL HISTORY No past surgical history on file. FAMILY HISTORY No family history on file. ALLERGIES No Known Allergies MEDICATIONS Reviewed SOCIAL HISTORY Social History Socioeconomic History Marital status: Single Spouse name: Not on file Number of children: Not on file Years of education: Not on file Highest education level: Not on file Occupational History Not on file Social Needs Financial resource strain: Not on file Food insecurity Worry: Not on file Inability: Not on file Transportation needs Medical: Not on file Non-medical: Not on file Tobacco Use Smoking status: Not on file Substance and Sexual Activity Alcohol use: Not on file Drug use: Not on file Sexual activity: Not on file Lifestyle Physical activity Days per week: Not on file Minutes per session: Not on file Stress: Not on file Relationships Social connections Talks on phone: Not on file Gets together: Not on file Attends restorationist service: Not on file Active member of club or organization: Not on file Attends meetings of clubs or organizations: Not on file Relationship status: Not on file Intimate partner violence Fear of current or ex partner: Not on file Emotionally abused: Not on file Physically abused: Not on file Forced sexual activity: Not on file Other Topics Concern Not on file Social History Narrative Not on file ROS: Constitutional: (-) fever, (-) chills, (-) weight change EENT: (-) headache, (-) vision changes (-) sore throat Resp: (-) cough, (-) shortness of breath Cardio: (-) chest pain, (-) palpitations GI: regurgitation, dysphagia to solids and liquids, odynophagia : (-) dysuria, (-) increased urinary frequency Neuro: (-) numbness, (-) weakness CAT: (-) muscle pain, (-) joint pain Skin: (-) rash, (-) lesion Heme: (-) bleeding disorder Psych: (-) anxiety , (-) depression PHYSICAL EXAM: BP 125/87 (BP Location: Left arm, Patient Position: Supine) | Pulse 55 | Temp 36.7 C (98 F) (Oral) | Resp 18 | Ht 5' 6" (1.676 m) | Wt 110 lb (49.9 kg) | SpO2 100% | BMI 17.75 kg/m Constitutional: comfortable and in no acute distress, cachectic EENT: no scleral icterus, no conjunctival pallor Cardiovascular: RRR Respiratory: non-labored Gastrointestinal: +BS, soft, non-tender, non-distended MSK: MAEW Skin: no rash Neurologic: grossly non-focal Psychiatric: normal affect LABORATORY HGB (g/dL) Date Value 08/23/2020 11.1 (L) 05/02/2020 15.0 01/10/2019 13.0 PLT (10*3/L) Date Value 08/23/2020 201 05/02/2020 344 (H) 01/10/2019 216 No results found for: PTINR Hepatic Function Panel ALBUMIN (g/dL) Date Value 08/23/2020 3.2 (L) T PROTEIN (g/dL) Date Value 08/23/2020 6.8 TOTAL BILI (mg/dL) Date Value 08/23/2020 0.9 BILI UNCON (mg/dL) Date Value 08/23/2020 0.7 BILI CONJ (mg/dL) Date Value 08/23/2020 0.0 ALT(SGPT) (U/L) Date Value 01/10/2019 15 ALTv (U/L) Date Value 08/23/2020 32 AST(SGOT) (U/L) Date Value 08/23/2020 48 (H) ALK PHOS (U/L) Date Value 08/23/2020 55 BMP NA (mmol/L) Date Value 08/24/2020 144 K (mmol/L) Date Value 08/24/2020 2.0 (LL) CALCIUM (mg/dL) Date Value 08/24/2020 8.2 (L) CL (mmol/L) Date Value 08/24/2020 105 BUN (mg/dL) Date Value 08/24/2020 11 CREATININE (mg/dL) Date Value 08/24/2020 0.97 GLUCOSE (mg/dL) Date Value 08/24/2020 74 CO2 TOTAL (mmol/L) Date Value 08/24/2020 33 (H) RADIOLOGY: CT thorax 08/23/2020 IMPRESSION 1. Marked distention of the esophagus measuring up to 3.8 cm in transverse diameter with air-fluid level. The findings are nonspecific but suggestive of achalasia. Focal narrowing at the GE junction is suspected on 4:55. Correlation with clinical history is recommended; alternatively, esophageal barium study or endoscopy can be obtained nonemergently to further assess. 2. Bilateral solid nodules measuring 6 mm in the left lower and right middle lobes. If the patient is in high-risk category (family history of lung cancer, history of smoking) an optional CT can be considered in 12 months to document stability. 3. Focal tree-in-bud nodularity of right middle lobe, nonspecific and may represent an underlying evolving infectious/inflammatory process. The findings of this study, including achalasia, have been discussed with and acknowledged by KASIA Lott over the phone on 08/23/2020 at 9:[address] Abd/pelvis 08/23/2020 IMPRESSION 1. Abnormally distended distal thoracic esophagus by pneumatized content is seen. This can be observed with achalasia or gastroesophageal stricture/narrowing. Clinical correlation is recommended. 2. Large bowel containing right inguinal hernia. No signs suggestive of bowel obstruction. Nonspecific segmental mural thickening and enhancement of the small bowel loop inthe left mid abdomen is noted. 3. Questionable hypoattenuation in the right paracolonic gutter suggestive of trace volume ascites. PREVIOUS ENDOSCOPY: EGD: n/a COLONOSCOPY: ASSESSMENT and PLAN Tahir Ag Jr. is a 35 year old Black or male with past medical history of Right inguinal hernia, Bipolar disorder, Schizophrenia, Depression, Anxiety, GERD who presents withcomplaints of dysphagia to solids and liquids with daily regurgitation episodes. Reports drug use ofcocaine, methamphetamines, marijuana. +40 lb unintentional weight loss. 1. Dysphagia to solids and liquids -esophageal stricture vs motility disorder such as achalasia -intermittent odynophagia and episodes of retrosternal chest pain -CT thorax showing distention of the esophagus with air fluid level, findings suggestive of possibleachalasia. Focal narrowing at GE junction -Discussed with patient to keep him NPO today until morning to decrease the chance of aspiration andplan to proceed with EGD in the morning -Pt will also benefit from HREM to evaluate esophageal contractility/motility -Will discuss with attending in the morning if we can place esophageal manometry catheter endoscopically Patient was seen and discussed with Dr. Major GI will continue to follow. Please call with any questions. Marissa Keys MD Gastroenterology and Hepatology PGY-4 Contact info through [facility] R CENTER TECHNICIAN Associated attestation - Janessa Major MD - 08/25/2020 6:58 AM DONOR CENTER TECHNICIAN I personally examined the patient on 08/24/[address] Keys's fellow note as written.I actively participated in the decision-making process. Please see the the fellow's note for additional details. Janessa Major MD Lockstitch Topstitcher Division of Gastroenterology and Hepatology [facility] documented in this encounter Nursing Notes Praveen Guy RN - 08/26/2020 1:59 AM CSTPatient informed at this time that he is NPO, not to eat or drink anything, except with meds. Patient response, "ah, no fuck that, they change that shit right now!" Primary RN stated the reason for being NPO due to EGD procedure in the morning and the risk of aspiration and once procedure has been done and completed he can return to eating and drinking. Patient response was, "oh okay!" This primary RN will continue to monitor for adherence to NPO order for duration of shift. R CENTER TECHNICIAN documented in this encounter ED Notes Ministerio Bradford RN - 08/23/2020 6:11 PM CDTC/O N/V and abdominal pain x 2 months with weakness. States "I have lost 45 pounds in 2 months". States"I haven't had a BM in 3 weeks". Admits to cocaine use last night and meth use 2 days ago. States "I have been an IV drug user [id number]". auri Lott FNP - 08/23/2020 5:57 PM CDT [facility] Emergency Department Note Patient Name: Tahir Ag Jr. Date of : 1985 35 year old male Treatment Room: Room/bed info not found Primary Care Physician: PATIENT DOES NOT HAVE A PCP Patient Escorted by: Family [5] Mode of Arrival: Personal means [1] EMS Treatment Prior to ED Arrival: TEAM COORDINATOR treatment: None Travel and Exposure Screening: Symptoms Does patient have any of these symptoms?: (not recorded) Exposure Screening Has patient had contact with someone with a communicable disease in the last month?: (not recorded) Diseases exposed to:: (not recorded) Is Patient ?: (not recorded) Exposure Date: (not recorded) Chief Complaint: Chief Complaint Patient presents with Vomiting History of Present Illness: 35 y/o male presents with c/o abdominal pain, nausea, vomiting, and weight loss progressively getting worse for past 10 months and is really worse for at least 6 months. He was seen in this ER for thisin April 2020. He reports he feels he is always hungry and thirsty, drinks gatorade and water in large amounts and then vomits it all up. He also reports he feels like his food /fluid get stuck in the chest. He reports loosing approx 45 pounds in the past few months. He also has no BM in past 3 weeks but had one this afternoon after eating lunch. He denies fever or chills but feels fatigue. He admits using meth and cocaine (smoking and IV use) for several years,last use yesterday. He was dx with dysphagia by PCP and started on Omeprazole with no relief of symptoms He reports that he was in nursing home for 10 months and got out in March 2020. He was tested for HIV/Hepc /hep B while in nursing home and was negative. He admits drinking alcohol occasionally and smokes cigarettes. He has history of anxiety, bipolar disorder and schizophrenia on medications. 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 Past Surgical History: No past surgical history on file. Review of Systems: Review of Systems Constitutional: Positive for activity change, fatigue and weight loss. Negative for appetite change,chills and fever. HENT: Negative for congestion, facial swelling, rhinorrhea, sore throat, tinnitus and trouble swallowing. Eyes: Negative. Respiratory: Positive for chest tightness. Negative for cough and shortness of breath. Cardiovascular: Negative for chest pain, palpitations and leg swelling. Gastrointestinal: Positive for abdominal pain, constipation, nausea and vomiting. Negative for abdominal distention, blood in stool and diarrhea. Dysphagia Genitourinary: Negative for dysuria, urgency, frequency, flank pain and difficulty urinating. Musculoskeletal: Negative for arthralgias, back pain, gait problem, joint swelling, myalgias, neck pain and neck stiffness. Skin: Negative. Neurological: Negative. Psychiatric/Behavioral: Negative for behavioral problems and confusion. The patient is nervous/anxious. Endocrine: Positive for polydipsia and weight loss. Physical Exam: ED Triage Vitals [08/23/20 1811] Weight 49.9 kg (110 lb) Actual or estimated Height 1.676 m (5' 6") BP (!) 137/116 Pulse 81 Resp 18 Temp 36.8 C (98.2 F) Temp source Oral SpO2 100 % Measured on Room air Physical Exam Vitals signs and nursing note reviewed. Constitutional: General: He is awake. Appearance: He is underweight. He is not ill-appearing or toxic-appearing. HENT: Head: Normocephalic and atraumatic. Nose: Nose normal. No congestion or rhinorrhea. Mouth/Throat: Lips: [place]. Mouth: Mucous membranes are moist. Pharynx: Oropharynx is clear. No oropharyngeal exudate. Eyes: General: No scleral icterus. Conjunctiva/sclera: Conjunctivae normal. Pupils: Pupils are equal, round, and reactive to light. Neck: Musculoskeletal: Normal range of motion and neck supple. No neck rigidity or muscular tenderness. Cardiovascular: Rate and Rhythm: Normal rate and regular rhythm. Pulses: Normal pulses. Pulmonary: Effort: Pulmonary effort is normal. No respiratory distress. Breath sounds: Normal breath sounds. Chest: Chest wall: No tenderness. Abdominal: General: Abdomen is flat. Bowel sounds are normal. There is no distension. Palpations: Abdomen is soft. There is no shifting dullness or fluid wave. Tenderness: There is generalized abdominal tenderness. Comments: Diffuse non focal abdominal tenderness Musculoskeletal: Normal range of motion. General: No swelling or tenderness. Right lower leg: No edema. Left lower leg: No edema. Skin: General: Skin is warm and dry. Capillary Refill: Capillary refill takes less than 2 seconds. Findings: No erythema or rash. Neurological: Mental Status: He is alert and oriented to person, place, and time. GCS: GCS eye subscore is 4. GCS verbal subscore is 5. GCS motor subscore is 6. Cranial Nerves: Cranial nerves are intact. No cranial nerve deficit or dysarthria. Motor: Motor function is intact. No abnormal muscle tone or pronator drift. Psychiatric: Mood and Affect: Mood normal. Behavior: Behavior normal. Behavior is cooperative. Thought Content: Thought content normal. Radiology: Hospital Encounter on 08/23/[address] thorax with contrast Narrative CT THORAX W CONTRAST HISTORY: 35 years-old; Male; Chest pain or SOB, pleurisy or effusion suspected dysphagia, weight loss, vomiting, globus sensation COMPARISON: None TECHNIQUE: Helical CT was performed of the chest (lung apices to bases) using 120 mL Omnipaque-350 nonionic intravenous contrast, without complications. Images were reconstructed at 1.0 slice thickness. Axial MIPs and coronal and sagittal MPR images were generated and reviewed. DFOV = 31 cm. FINDINGS: Lower neck/thyroid: Unremarkable. Lungs: Multiple pleural-based lung nodules are noted in the left lower lobe measuring up to 7 mm (14:46). Solid pulmonary nodules are also seen in the left lower lobe measuring 6 mm (14:44) and right middle lobe measuring 6 cm (14:59). Focus of tree-in-bud nodularity is noted in the superior segment of right middle lobe (14:75). Central airway: Unremarkable. Pleura: No pleural effusion, thickening or pneumothorax. Thoracic aorta and great vessels: The normal three vessel branching pattern is identified off of the aortic arch. The aorta is normal in diameter. Pulmonary arteries: Normal in caliber. Heart and pericardium: No detectable coronary arterial calcifications are present. Dilated left ventricle. Lymph nodes: No enlarged thoracic lymph nodes. Mediastinum: Diffuse distention of fluid-filled esophagus is noted measuring up to 5.8 cm in transverse diameter in the mid segment with air-fluid level. No distinguishable or nodular thickening is identified. Areas of layering calcification are seen along the posterior wall of the esophagus more distally. Thoracic spine and chest wall: No aggressive osseous lesion is identified. Other Lines/Tubes/Devices/Hardware: None Visualized upper abdomen: Abnormal reflux of contrast is noted into the hepatic IVC and hepatic veins. Impression 1. Marked distention of the esophagus measuring up to 3.8 cm in transverse diameter with air-fluid level. The findings are nonspecific but suggestive of achalasia. Focal narrowing at the GE junction is suspected on 4:55. Correlation with clinical history is recommended; alternatively, esophageal barium study or endoscopy can be obtained nonemergently to further assess. 2. Bilateral solid nodules measuring 6 mm in the left lower and right middle lobes. If the patient is in high-risk category (family history of lung cancer, history of smoking) an optional CT can be considered in 12 months to document stability. 3. Focal tree-in-bud nodularity of right middle lobe, nonspecific and may represent an underlying evolving infectious/inflammatory process. The findings of this study, including achalasia, have been discussed with and acknowledged by KASIA Lott over the phone on 08/23/2020 at 9:50 PM with readback. Preliminary Report Dictated by Resident: Jayy Manzo I, Sienna Mcmanus MD., have reviewed this study and agree with the above report. CT ABDOMEN PELVIS W CONTRAST Narrative EXAM: CT ABDOMEN AND PELVIS WITH CONTRAST HISTORY: C/O N/V and abdominal pain x 2 months with weakness. ?States "I have?lost 45 pounds in 2 months". States"I haven't had a BM in 3 weeks". COMPARISON: None. TECHNIQUE AND FINDINGS: Contiguous axial imaging from the level of the lung bases through the proximal thighs was performed after the administration of intravenous Omnipaque contrast. Coronal and sagittal reconstructions were obtained. Auto mA and/or iterative reconstruction were used to reduce radiation dose. FINDINGS: Limited evaluation of the abdominal pelvic organs due to paucity of intra-abdominopelvic fat. LOWER THORAX: Please refer to concurrently obtained but separately dictated CT chest for thoracic findings. Significantly distended distal thoracic esophagus by pneumatized content. LIVER: Heterogenous appearance of the hepatic parenchyma is seen, likely perfusional. Normal contour. Nonspecific mild periportal edema. GALLBLADDER AND BILIARY TREE: No biliary ductal dilation. No gallbladder wall thickening. SPLEEN: No splenomegaly. A 1.3 cm splenule is seen (602:50). PANCREAS: No ductal dilation or masses. ADRENAL GLANDS: No adrenal nodules. KIDNEYS: No hydronephrosis, stones, or masses. PERITONEUM AND RETROPERITONEUM: No free air . Trace volume of intraperitoneal fat fluid is suggested about the right paracolonic gutter (602:69). Large right inguinal hernia containing small bowel loops. LYMPH NODES: No lymphadenopathy. GI TRACT: Abnormally thickened small bowel loop is seen in the left midabdomen (602:67) PELVIS/BLADDER: Unremarkable. VESSELS: Unremarkable. BONES AND SOFT TISSUES: No suspicious lytic or sclerotic bony lesions. Impression 1. Abnormally distended distal thoracic esophagus by pneumatized content is seen. This can be observed with achalasia or gastroesophageal stricture/narrowing. Clinical correlation is recommended. 2. Large bowel containing right inguinal hernia. No signs suggestive of bowel obstruction. Nonspecific segmental mural thickening and enhancement of the small bowel loop in the left mid abdomen is noted. 3. Questionable hypoattenuation in the right paracolonic gutter suggestive of trace volume ascites. Preliminary Report Dictated by Resident: Sienna Velazquez MD., have reviewed this study and agree with the above report. Chest 1 View Narrative EXAM: XR CHEST 1 VW HISTORY: 35 years-old; Male; malaise COMPARISON: None FINDINGS: Lungs/Pleura: The lungs are clear with no focal consolidation. There is no pleural effusion or pneumothorax. Heart/Mediastinum: The cardiomediastinal silhouette is normal. No acute osseous structure abnormality. Bilaterally humeral pedunculated outgrowth arising from the proximal metadiaphysis which is contiguous with the medullary cavity. Impression No acute cardiopulmonary abnormality. Bilateral humeral osteochondroma. Preliminary Report Dictated by Resident: Sienna Castro MD., have reviewed this study and agree with the above report. Lab Results (24h): Recent Results (from the past 24 hour(s)) COVID-19 (ID NOW RAPID TESTING) Collection Time: 08/23/20 7:11 PM Specimen: NASOPHARYNGEAL SWAB Result Value Ref Range SARS-CoV-2 Rapid ID NOW Not Detected Not Detected CBC with Differential Collection Time: 08/23/20 7:52 PM Result Value Ref Range WBC 6.36 4.20 - 10.70 10*3/L RBC 3.85 (L) 4.26 - 5.52 10*6/L HGB 11.1 (L) 12.2 - 16.4 g/dL HCT 33.4 (L) 38.4 - 49.3 % MCV 86.8 81.7 - 95.6 fL MCH 28.8 26.1 - 32.7 pg MCHC 33.2 31.2 - 35.0 g/dL RDW-SD 45.6 38.5 - 51.6 fL RDW-CV 14.4 12.1 - 15.4 % PLT 201 150 - 328 10*3/L MPV 11.5 9.8 - 13.0 fL NRBC/100 WBC 0.0 0.0 - 10.0 /100 WBCs NRBC x10^3 <0.01 10*3/L GRAN MAT (NEUT) % 49.9 % IMM GRAN % 0.30 % LYMPH % 43.2 % MONO % 6.1 % EOS % 0.3 % BASO % 0.2 % GRAN MAT x10^3(ANC) 3.17 1.99 - 6.95 10*3/uL IMM GRAN x10^3 <0.03 0.00 - 0.06 10*3/uL LYMPH x10^3 2.75 1.09 - 3.23 10*3/uL MONO x10^3 0.39 0.36 - 1.02 10*3/uL EOS x10^3 <0.03 (L) 0.06 - 0.53 10*3/uL BASO x10^3 <0.03 0.01 - 0.09 10*3/uL Basic Metabolic Panel (NA, K, CL, CO2, GLUCOSE, BUN, CREATININE, CA) Collection Time: 08/23/20 7:52 PM Result Value Ref Range NA 142 135 - 145 mmol/L K 2.1 (LL) 3.5 - 5.0 mmol/L CL 104 98 - 108 mmol/L CO2 TOTAL 35 (H) 23 - 31 mmol/L AGAP 3 2 - 16 BUN 13 7 - 23 mg/dL GLUCOSE 73 70 - 110 mg/dL CREATININE 0.95 0.60 - 1.25 mg/dL CALCIUM 8.7 8.6 - 10.6 mg/dL eGFR Calculation (Non-) 89.7 mL/min/1.73m2 eGFR Calculation () 108.7 mL/min/1.73m2 Hepatic Function Panel (ALB, T.PRO, BILI T, BU/BC, ALT, AST, ALK PHOS) Collection Time: 08/23/20 7:52 PM Result Value Ref Range TOTAL BILI 0.9 0.1 - 1.1 mg/dL BILI UNCON 0.7 0.1 - 1.1 mg/dL BILI CONJ 0.0 0.0 - 0.3 mg/dL T PROTEIN 6.8 6.3 - 8.2 g/dL ALBUMIN 3.2 (L) 3.5 - 5.0 g/dL ALK PHOS 55 34 - 122 U/L ALTv 32 5 - 50 U/L AST(SGOT) 48 (H) 13 - 40 U/L Lipase Serum Collection Time: 08/23/20 7:52 PM Result Value Ref Range LIPASE 248 (H) 0 - 220 U/L Troponin I Collection Time: 08/23/20 7:52 PM Result Value Ref Range TROPONIN I 0.014 <=0.034 ng/mL MAGNESIUM Collection Time: 08/23/20 7:52 PM Result Value Ref Range MAGNESIUM 2.4 1.7 - 2.4 mg/dL EKG: Sinus bradycardia , rate 51 Orders and Treatments: Orders Placed This Encounter Procedures Chest [address] ABDOMEN PELVIS W CONTRAST CT thorax with contrast CBC with Differential Basic Metabolic Panel (NA, K, CL, CO2, GLUCOSE, BUN, CREATININE, CA) Hepatic Function Panel (ALB, T.PRO, BILI T, BU/BC, ALT, AST, ALK PHOS) Lipase Serum Troponin I COVID-19 (ID NOW RAPID TESTING) [facility] LAB ONLY COVID INTERPRETATION Orders Placed This Encounter Medications NaCl 0.9% (NS) bolus infusion 1,000 mL ondansetron (ZOFRAN (PF)) injection 4 mg famotidine (PEPCID (PF)) injection 20 mg FENTanyl PF (SUBLIMAZE (PF)) injection 50 mcg KCL (KLOR-CON M20) tablet 40 mEq potassium chloride in water 10 mEq/100 mL RTU 10 mEq potassium chloride in water 10 mEq/100 mL RTU 10 mEq iohexol (OMNIPAQUE 350 BULK-150 mL) injection 120 mL ED COURSE VSS, stable patient He reports progressively worsening over the past 10 months. He denies fever or chills, no chest pain but has a globus sensation/vomiting after eating/drinking. He reports that he has lost 45 lbs in 2 months. CBC- WNL, CMP shows k 2.1, other sanz CMP unremarkable CT chest and abdomen/pelvis results reviewed. IMPRESSION 1. Abnormally distended distal thoracic esophagus by pneumatized content is seen. This can be observed with achalasia or gastroesophageal stricture/narrowing. Clinical correlation is recommended. 2. Large bowel containing right inguinal hernia. No signs suggestive of bowel obstruction. Nonspecific segmental mural thickening and enhancement of the small bowel loop in the left mid abdomen is noted. 3. Questionable hypoattenuation in the right paracolonic gutter suggestive of trace volume ascites. Preliminary Report Dictated by Resident: Saman Vasquez I, Sienna Mcmanus MD., have reviewed this study and agree with the above report. Potassium replacement given in ER as K dur 40 meq PO and 20 meq IV. He reports improvement in pain and nausea with pepcid, zofran and IVF. 2199: discussed to Hospitalist in [facility] for admission.Recommended transfer to [facility] for further evaluation as no GI specialist available in [facility] till 08/29/2020 and he needs evaluation of GI specialist. All results discussed with the patient.he is agreeable for transfer to [facility]. 2244: Discussed with Dr. Peoples - [facility] Hospitalist and accepted for admission. Discussed with Dr. Akins and agrees with plan of care. MDM: MDM Reviewed: previous chart, nursing note and vitals Interpretation: labs, ECG, CT scan and x-ray Scoring Tools: No data recorded Diagnosis/Impression: ICD-10-CM ICD-9-CM 1. Generalized abdominal pain R10.84 789.07 2. Vomiting, intractability of vomiting not specified, presence of nausea not specified, unspecifiedvomiting type R11.10 787.03 3. Globus sensation R09.89 306.4 4. Weight loss R63.4 783.21 5. Hypokalemia E87.6 276.8 6. Achalasia of esophagus K22.0 530.0 Disposition/Condition: ED Disposition ED Disposition Condition Comment Transfer [facility] to IP/Obs Discharge Medications: Patient's Medications START taking these medications No medications on file CONTINUE taking these medications which have NOT CHANGED DIVALPROEX SODIUM (DEPAKOTE ORAL) Take by mouth. GUANFACINE HCL (TENEX ORAL) Take by mouth. SERTRALINE HCL (ZOLOFT ORAL) Take by mouth. START taking Modified Medications as Prescribed No medications on file STOP taking these medications No medications on file Follow-up: Electronically signed by: BEN Frey 08/23/2020 6:15 PM R CENTER TECHNICIAN Associated attestation - Citlalli Akins MD - 08/24/2020 6:53 AM CSTAddendum I was personally available for consultation in the Emergency Department during this encounter and patient evaluation by BEN Lott. documented in this encounter Miscellaneous Notes Nursing Note - Kaylee Klein RN - 08/30/2020 3:40 PM CSTCalled patient via cellphone to notify him that he left his discharge papers on the counter. Patientstated that he will come back to get them. are Plan - Kaylee Klein RN - 08/30/2020 3:00 PM DONOR CENTER TECHNICIAN Problem: Pain Goal: Control of pain at or below patient's documented comfort goal 08/30/2020 1525 by Kaylee Klein RN Outcome: Adequate for discharge 08/30/2020 1524 by Kaylee Klein RN Outcome: Progressing as expected 08/30/2020 1523 by Kaylee Klein RN Outcome: Progressing as expected Goal: Reduction in pain sensation 08/30/2020 1525 by Kaylee Klein RN Outcome: Adequate for discharge 08/30/2020 1524 by Kaylee Klein RN Outcome: Progressing as expected 08/30/2020 1523 by Kaylee Klein RN Outcome: Progressing as expected Problem: Infection Risk Goal: Absence of infection 08/30/2020 1525 by Kaylee Klein RN Outcome: Adequate for discharge 08/30/2020 1524 by Kaylee Klein RN Outcome: Progressing as expected 08/30/2020 1523 by Kaylee Klein RN Outcome: Progressing as expected Problem: Discharge Planning Goal: Absence of venous thromboembolism 08/30/2020 1525 by Kaylee Klein RN Outcome: Adequate for discharge 08/30/2020 1524 by Kaylee Klein RN Outcome: Progressing as expected 08/30/2020 1523 by Kaylee Klein RN Outcome: Progressing as expected Goal: Adequate for discharge 08/30/2020 1525 by Kaylee Klein RN Outcome: Adequate for discharge 08/30/2020 1524 by Kaylee Klein RN Outcome: Progressing as expected 08/30/2020 1523 by Kaylee Klein RN Outcome: Progressing as expected Goal: Effective communication 08/30/2020 1525 by Kaylee Klein RN Outcome: Adequate for discharge 08/30/2020 1524 by Kaylee Klein RN Outcome: Progressing as expected 08/30/2020 1523 by Kaylee Klein RN Outcome: Progressing as expected Problem: Cardiac Output - Decreased Goal: Cardiac output within specified parameters 08/30/2020 1525 by Kaylee Klein RN Outcome: Adequate for discharge 08/30/2020 1524 by Kaylee Klein RN Outcome: Progressing as expected 08/30/2020 1523 by Kaylee Klein RN Outcome: Progressing as expected Goal: Absence of signs and symptoms of decreased cardiac output 08/30/2020 1525 by Kaylee Klein RN Outcome: Adequate for discharge 08/30/2020 1524 by Kaylee Klein RN Outcome: Progressing as expected 08/30/2020 1523 by Kaylee Klein RN Outcome: Progressing as expected Problem: Anxiety Goal: Alleviation of anxiety 08/30/2020 1525 by Kaylee Klein RN Outcome: Adequate for discharge 08/30/2020 1524 by Kaylee Klein RN Outcome: Progressing as expected 08/30/2020 1523 by Kaylee Klein RN Outcome: Progressing as expected Problem: Falls, Risk of Goal: Absence of falls 08/30/2020 1525 by Kaylee Klein RN Outcome: Adequate for discharge 08/30/2020 1524 by Kaylee Klein RN Outcome: Progressing as expected 08/30/2020 1523 by Kaylee Klein RN Outcome: Progressing as expected R CENTER TECHNICIAN Nursing Note - Kaylee Klein RN - 08/30/2020 3:00 PM CSTPatient was educated on all discharge instructions including medications and follow up appointments.Patient was educated on the importance to follow up with appointments as advised. Patient was educated on the importance that he avoids eating any solid foods as it is dangerous due to the narrowing ofhis esophagus. Patient verbalized good understanding of all discharge orders at this time. are Plan - Kaylee Klein RN - 08/30/2020 9:00 AM DONOR CENTER TECHNICIAN Problem: Pain Goal: Control of pain at or below patient's documented comfort goal 08/30/2020 1524 by Kaylee Klein RN Outcome: Progressing as expected 08/30/2020 1523 by Kaylee Klein RN Outcome: Progressing as expected Goal: Reduction in pain sensation 08/30/2020 1524 by Kaylee Klein RN Outcome: Progressing as expected 08/30/2020 1523 by Kaylee Klein RN Outcome: Progressing as expected Problem: Infection Risk Goal: Absence of infection 08/30/2020 1524 by Kaylee Klein RN Outcome: Progressing as expected 08/30/2020 1523 by Kaylee Klein RN Outcome: Progressing as expected Problem: Discharge Planning Goal: Absence of venous thromboembolism 08/30/2020 1524 by Kaylee Klein RN Outcome: Progressing as expected 08/30/2020 1523 by Kaylee Klein RN Outcome: Progressing as expected Goal: Adequate for discharge 08/30/2020 1524 by Kaylee Klein RN Outcome: Progressing as expected 08/30/2020 1523 by Kaylee Klein RN Outcome: Progressing as expected Goal: Effective communication 08/30/2020 1524 by Kaylee Klein RN Outcome: Progressing as expected 08/30/2020 1523 by Kaylee Klein RN Outcome: Progressing as expected Problem: Cardiac Output - Decreased Goal: Cardiac output within specified parameters 08/30/2020 1524 by Kaylee Klein RN Outcome: Progressing as expected 08/30/2020 1523 by Kaylee Klein RN Outcome: Progressing as expected Goal: Absence of signs and symptoms of decreased cardiac output 08/30/2020 1524 by Kaylee Klein RN Outcome: Progressing as expected 08/30/2020 1523 by Kaylee Klein RN Outcome: Progressing as expected Problem: Anxiety Goal: Alleviation of anxiety 08/30/2020 1524 by Kaylee Klein RN Outcome: Progressing as expected 08/30/2020 1523 by Kaylee Klein RN Outcome: Progressing as expected Problem: Falls, Risk of Goal: Absence of falls 08/30/2020 1524 by Kaylee Klein RN Outcome: Progressing as expected 08/30/2020 1523 by Kaylee Klein RN Outcome: Progressing as expected are Plan - Josselyn Romero RN - 08/30/2020 1:22 AM DONOR CENTER TECHNICIAN Problem: Pain Goal: Control of pain at or below patient's documented comfort goal 08/30/2020 012 by Josselyn Romero RN Outcome: Progressing as expected 08/30/2020 0119 by Josselyn Romero RN Outcome: Progressing as expected Goal: Reduction in pain sensation 08/30/2020 0121 by Josselyn Romero RN Outcome: Progressing as expected 08/30/2020 0119 by Josselyn Romero RN Outcome: Progressing as expected Problem: Infection Risk Goal: Absence of infection 08/30/2020120 by Josselyn Romero RN Outcome: Progressing as expected 08/30/2020118 by Josselyn Romero RN Outcome: Progressing as expected Problem: Discharge Planning Goal: Absence of venous thromboembolism 08/30/2020120 by Josselyn Romero RN Outcome: Progressing as expected 08/30/2020118 by Josselyn Romero RN Outcome: Progressing as expected Goal: Adequate for discharge 08/30/2020120 by Josselyn Romero RN Outcome: Progressing as expected 08/30/2020118 by Josselyn Romero RN Outcome: Progressing as expected Goal: Effective communication 08/30/2020120 by Josselyn Romero RN Outcome: Progressing as expected 08/30/2020118 by Josselyn Romero RN Outcome: Progressing as expected Problem: Cardiac Output - Decreased Goal: Cardiac output within specified parameters 08/30/2020120 by Josselyn Romero RN Outcome: Progressing as expected 08/30/2020118 by Josselyn Romero RN Outcome: Progressing as expected Goal: Absence of signs and symptoms of decreased cardiac output 08/30/2020120 by Josselyn Romero RN Outcome: Progressing as expected 08/30/2020118 by Josselyn Romero RN Outcome: Progressing as expected Problem: Anxiety Goal: Alleviation of anxiety 08/30/2020120 by Josselyn Romero RN Outcome: Progressing as expected 08/30/2020118 by Josselyn Romero RN Outcome: Progressing as expected Problem: Falls, Risk of Goal: Absence of falls Outcome: Progressing as expected are Plan - India Gautam RN - 08/29/2020 5:49 AM DONOR CENTER TECHNICIAN Problem: Pain Goal: Control of pain at or below patient's documented comfort goal Outcome: Progressing as expected Goal: Reduction in pain sensation Outcome: Progressing as expected Problem: Infection Risk Goal: Absence of infection Outcome: Progressing as expected Problem: Discharge Planning Goal: Absence of venous thromboembolism Outcome: Progressing as expected Goal: Adequate for discharge Outcome: Progressing as expected Goal: Effective communication Outcome: Progressing as expected Problem: Cardiac Output - Decreased Goal: Cardiac output within specified parameters Outcome: Progressing as expected Goal: Absence of signs and symptoms of decreased cardiac output Outcome: Progressing as expected Problem: Anxiety Goal: Alleviation of anxiety Outcome: Progressing as expected ursing Note - Rossy Alcantar RN - 08/28/2020 5:28 PM CSTNGT placement attempted at bedside with dr aguilar/nati team, patient was able to tolerate 20cm oftube before resistance was met and patient c/o of pain, procedure was stopped and tube was removed, no second attempt was made, per dr aguilar he will consult with GI for further instructions are Plan - Rossy Alcantar RN - 08/28/2020 3:38 PM CST R CENTER TECHNICIAN Care Plan - Amanuel Dewey RN - 08/28/2020 4:57 AM DONOR CENTER TECHNICIAN Problem: Pain Goal: Control of pain at or below patient's documented comfort goal Outcome: Progressing as expected Goal: Reduction in pain sensation Outcome: Progressing as expected Problem: Infection Risk Goal: Absence of infection Outcome: Progressing as expected Problem: Discharge Planning Goal: Absence of venous thromboembolism Outcome: Progressing as expected Goal: Adequate for discharge Outcome: Progressing as expected Goal: Effective communication Outcome: Progressing as expected Problem: Cardiac Output - Decreased Goal: Cardiac output within specified parameters Outcome: Progressing as expected Goal: Absence of signs and symptoms of decreased cardiac output Outcome: Progressing as expected R CENTER TECHNICIAN Care Plan - Kaylee Klein RN - 08/27/2020 8:11 AM DONOR CENTER TECHNICIAN Problem: Pain Goal: Control of pain at or below patient's documented comfort goal Outcome: Progressing as expected Goal: Reduction in pain sensation Outcome: Progressing as expected Problem: Infection Risk Goal: Absence of infection Outcome: Progressing as expected Problem: Discharge Planning Goal: Absence of venous thromboembolism Outcome: Progressing as expected Goal: Adequate for discharge Outcome: Progressing as expected Goal: Effective communication Outcome: Progressing as expected Problem: Cardiac Output - Decreased Goal: Cardiac output within specified parameters Outcome: Progressing as expected Goal: Absence of signs and symptoms of decreased cardiac output Outcome: Progressing as expected Problem: Anxiety Goal: Alleviation of anxiety Outcome: Progressing as expected are Roxana - Praveen Guy RN - 08/27/2020 7:42 AM DONOR CENTER TECHNICIAN Problem: Pain Goal: Control of pain at or below patient's documented comfort goal Outcome: Progressing as expected Goal: Reduction in pain sensation Outcome: Progressing as expected Problem: Infection Risk Goal: Absence of infection Outcome: Progressing as expected Problem: Discharge Planning Goal: Absence of venous thromboembolism Outcome: Progressing as expected Goal: Adequate for discharge Outcome: Progressing as expected Goal: Effective communication Outcome: Progressing as expected Problem: Cardiac Output - Decreased Goal: Cardiac output within specified parameters Outcome: Progressing as expected Goal: Absence of signs and symptoms of decreased cardiac output Outcome: Progressing as expected Problem: Anxiety Goal: Alleviation of anxiety Outcome: Progressing as expected ursing Note - Praveen Guy RN - 08/26/2020 7:48 PM CSTThis primary RN went to room for bedside shift report at this time and patient was not in the room and not on the unit. This RN will monitor for patient's return. are Roxana - Kaylee Klein RN - 08/26/2020 1:03 PM DONOR CENTER TECHNICIAN Problem: Pain Goal: Control of pain at or below patient's documented comfort goal Outcome: Progressing as expected Goal: Reduction in pain sensation Outcome: Progressing as expected Problem: Infection Risk Goal: Absence of infection Outcome: Progressing as expected Problem: Discharge Planning Goal: Absence of venous thromboembolism Outcome: Progressing as expected Goal: Adequate for discharge Outcome: Progressing as expected Goal: Effective communication Outcome: Progressing as expected Problem: Cardiac Output - Decreased Goal: Cardiac output within specified parameters Outcome: Progressing as expected Goal: Absence of signs and symptoms of decreased cardiac output Outcome: Progressing as expected Problem: Anxiety Goal: Alleviation of anxiety Outcome: Progressing as expected are Plan - Praveen Guy RN - 08/26/2020 2:21 AM DONOR CENTER TECHNICIAN Problem: Pain Goal: Control of pain at or below patient's documented comfort goal Outcome: Progressing as expected Goal: Reduction in pain sensation Outcome: Progressing as expected Problem: Infection Risk Goal: Absence of infection Outcome: Progressing as expected Problem: Discharge Planning Goal: Absence of venous thromboembolism Outcome: Progressing as expected Goal: Adequate for discharge Outcome: Progressing as expected Goal: Effective communication Outcome: Progressing as expected Problem: Cardiac Output - Decreased Goal: Cardiac output within specified parameters Outcome: Progressing as expected Goal: Absence of signs and symptoms of decreased cardiac output Outcome: Progressing as expected are Plan - Rosendo Gunn RN - 08/25/2020 7:42 PM DONOR CENTER TECHNICIAN Problem: Pain Goal: Control of pain at or below patient's documented comfort goal Outcome: Progressing as expected Goal: Reduction in pain sensation Outcome: Progressing as expected Problem: Infection Risk Goal: Absence of infection Outcome: Progressing as expected Problem: Discharge Planning Goal: Absence of venous thromboembolism Outcome: Progressing as expected Goal: Adequate for discharge Outcome: Progressing as expected Goal: Effective communication Outcome: Progressing as expected ursing Note - Rosendo Gunn RN - 08/25/2020 8:59 AM CSTEntered the room and the patient had his IV medications disconnected and running on the floor again. Patient appeared agitated and was complaining d/t him not eating. Patient stated, "We are not treating him nor letting me eat." Patient refused to be reconnected to IV medications and said, "I'm going outside to get away from this all." than stepped out the room and left the unit. Attempted to explainto the patient that his K is 2 and needed the medication, patient stated, "You won't let me eat thatis why it's down." Observed last night and today a cigarette on the bed side table and offered him anicotine patch and the patient stated, "There you going again trying to make medical decisions for me." I'm personally concerned for the patient as he isn't receiving much of his IV medications (KCL) and that his HR was in the 40's. are Plan - Tracie Espinosa RN - 08/24/2020 10:38 PM DONOR CENTER TECHNICIAN Problem: Pain Goal: Control of pain at or below patient's documented comfort goal Outcome: Progressing as expected Goal: Reduction in pain sensation Outcome: Progressing as expected Problem: Infection Risk Goal: Absence of infection Outcome: Progressing as expected Problem: Discharge Planning Goal: Absence of venous thromboembolism Outcome: Progressing as expected Goal: Adequate for discharge Outcome: Progressing as expected Goal: Effective communication Outcome: Progressing as expected are Plan - Rosendo Gunn RN - 08/24/2020 6:03 PM DONOR CENTER TECHNICIAN Problem: Pain Goal: Control of pain at or below patient's documented comfort goal Outcome: Progressing as expected Goal: Reduction in pain sensation Outcome: Progressing as expected Problem: Infection Risk Goal: Absence of infection Outcome: Progressing as expected Problem: Discharge Planning Goal: Absence of venous thromboembolism Outcome: Progressing as expected Goal: Adequate for discharge Outcome: Progressing as expected Goal: Effective communication Outcome: Progressing as expected ursing Note - Rosendo Gunn RN - 08/24/2020 1:44 PM CSTPatient off the unit again. Patient stated, "It's too much for me right now. I have mental illness. I fell like your making medical decisions for me. I'm taking a walk." I personally entered the room d/t the patient not receiving his IV mediations as he frequently walksoff the unit and he previously disconnected it. Was attempting to reconnect the IV medications. ursing Note - Rosendo Gunn RN - 08/24/2020 12:39 PM CSTPatient hasn't received any IV medications since approximately 0945. Patient is constantly walking off the unit and has been observed getting food out of the vending machines. ursing Note - Rosendo Gunn RN - 08/24/2020 9:45 AM CSTPatient disconnected both running IV medications KCL and [id number] than proceeded to walk off the unit.Patient previously stated this morning that he was going to go downstairs and get something to eat. are Plan - Curt Cárdenas RN - 08/24/2020 1:00 AM CDT Problem: Pain Goal: Control of pain at or below patient's documented comfort goal Outcome: Progressing as expected Goal: Reduction in pain sensation Outcome: Progressing as expected Problem: Infection Risk Goal: Absence of infection Outcome: Progressing as expected Problem: Discharge Planning Goal: Absence of venous thromboembolism Outcome: Progressing as expected Goal: Adequate for discharge Outcome: Progressing as expected Goal: Effective communication Outcome: Progressing as expected D Nurse Note - Vi Bass RN - 08/24/2020 12:05 AM CDTPatient [facility] Patient left in No acute distress. Report called to Arcelia MACK. D Nurse Note - Louise Argueta RN - 08/23/2020 8:[address] at this time D Nurse Note - Kennedy Alvarado RN - 08/23/2020 7:36 PM CDTAttempt to straight stick, able to get in the vein, but will not pull back. CN notified. Pt has IV access that flashes back, but too slow to draw. D Nurse Note - Kayla Carter RN - 08/23/2020 6:54 PM CDTReport given to MARTINA Benavides. MARTINA Garza documented in this encounter Plan of Treatment Name Type Priority Associated Diagnoses Date/Ti me LAB ONLY COVID LAB Routine 08/28/2020 7 :15 PM INTERPRETATION DONOR CENTER TECHNICIAN Name Type Priority Associated Diagnoses Order S chedule FECAL IMMUNOCHEMICAL TEST LAB Routine ON CE for 1 Occurrences starting 2019 until 0 QUANTIFERON-TB ASSAY LAB Routine ONCE fo r 1 Occurrences starting 2019 until 0 aPTT LAB ROBERTO ROBERTO for 1 Occu rrences starting 2019 until 0 Prothrombin Time / INR LAB ROBERTO ROBERTO for 1 Occurrences starting 2019 until 0 SEDIMENTATION RATE LAB Add-on ONCE for 1 Occurrences starting 2019 until 0 ACUTE CARE VENOUS BLOOD GAS LAB Routine ONCE for 1 Occurrences starting 2019 until 0 BASIC METABOLIC PANEL (NA, LAB Routine E VERY 8 HOURS (START K, CL, CO2, GLUCOSE, BUN, TI ME ADJUSTABLE) for 3 CREATININE, CA) Days startin g 08/25/2020 unti l 08/28/2020, 6 c ompleted LAB ONLY COVID LAB Routine ONCE for 1 Oc currences INTERPRETATION starting 02/2020 until 0, 1 completed BASIC METABOLIC PANEL (NA, LAB Routine E VERY 12 HOURS (START K, CL, CO2, GLUCOSE, BUN, TI ME ADJUSTABLE) for 3 CREATININE, CA) Days startin g 08/30/2020 unti l 09/01/2020, 1 c ompleted MAGNESIUM LAB Routine EVERY 24 HOURS (START TIME ADJUSTABLE ) for 3 Days starting 08/30/2020 unti l 09/01/2020, 1 c ompleted Health Maintenance Due Date Last Done Comments VARICELLA VACCINES (1 of 2 - 1985 2-dose childhood series) Depression Screening 1996 DTaP,Tdap,and Td Vaccines (1 - 2003 Tdap) INFLUENZA VACCINE (#1) 2020 PNEUMOCOCCAL 0-64 YEARS COMBINED Aged Out No longer eligible based on SERIES patient's age to complete this topic documented as of this encounter Procedures Procedure Name Priority Date/Time Associated Diagnosis Comme nts BASIC METABOLIC PANEL Routine 08/30/2020 4:45 Re sults for (NA, K, CL, CO2, AM DONOR CENTER TECHNICIAN this proced ure GLUCOSE, BUN, are in the CREATININE, CA) results section. MAGNESIUM Routine 08/30/2020 4:45 Results for AM DONOR CENTER TECHNICIAN this procedure are in the results section. BASIC METABOLIC PANEL Routine 08/29/2020 3:28 Re sults for (NA, K, CL, CO2, PM DONOR CENTER TECHNICIAN this proced ure GLUCOSE, BUN, are in the CREATININE, CA) results section. FL BARIUM SWALLOW Routine 08/29/2020 2:14 Achalasia of Result s for ESOPHAGUS PM DONOR CENTER TECHNICIAN esophagus this procedure are in the results section. BASIC METABOLIC PANEL Routine 08/29/2020 5:00 Re sults for (NA, K, CL, CO2, AM DONOR CENTER TECHNICIAN this proced ure GLUCOSE, BUN, are in the CREATININE, CA) results section. COVID-19 (ID NOW Routine 08/28/2020 7:15 Results for RAPID TESTING) PM DONOR CENTER TECHNICIAN this procedur e are in the results section. GALV ONLY - URINE Routine 08/28/2020 7:14 Result s for DRUG (LCMSMS) - MDMA PM DONOR CENTER TECHNICIAN this pr ocedure PANEL are in the results section. GALV ONLY - URINE Routine 08/28/2020 7:14 Result s for DRUG (LCMSMS) - CATHY PM DONOR CENTER TECHNICIAN this pr ocedure PANEL are in the results section. GALV/CLC ONLY - URINE Routine 08/28/2020 7:14 Re sults for DRUG (IMMUNOASSAY) - PM DONOR CENTER TECHNICIAN this pr ocedure COMPREHENSIVE DRUG are in th e SCREEN results section. BASIC METABOLIC PANEL Routine 08/28/2020 3:49 Re sults for (NA, K, CL, CO2, PM DONOR CENTER TECHNICIAN this proced ure GLUCOSE, BUN, are in the CREATININE, CA) results section. HB ECG ROUTINE & Routine 08/28/2020 11:44 Hypokalemia RHYTHM STRIP AM DONOR CENTER TECHNICIAN BASIC METABOLIC PANEL Routine 08/28/2020 7:00 Re sults for (NA, K, CL, CO2, AM DONOR CENTER TECHNICIAN this proced ure GLUCOSE, BUN, are in the CREATININE, CA) results section. PHOSPHORUS Routine 08/28/2020 7:00 Results for AM DONOR CENTER TECHNICIAN this procedure are in the results section. BASIC METABOLIC PANEL Routine 08/27/2020 9:40 Re sults for (NA, K, CL, CO2, PM DONOR CENTER TECHNICIAN this proced ure GLUCOSE, BUN, are in the CREATININE, CA) results section. BASIC METABOLIC PANEL Routine 08/27/2020 12:08 Re sults for (NA, K, CL, CO2, PM DONOR CENTER TECHNICIAN this proced ure GLUCOSE, BUN, are in the CREATININE, CA) results section. GALV ONLY - URINE STAT 08/27/2020 11:28 Result s for DRUG (LCMSMS) - MDMA AM DONOR CENTER TECHNICIAN this pr ocedure PANEL are in the results section. GALV ONLY - URINE STAT 08/27/2020 11:28 Result s for DRUG (LCMSMS) - CATHY AM DONOR CENTER TECHNICIAN this pr ocedure PANEL are in the results section. GALV/CLC ONLY - URINE STAT 08/27/2020 11:28 Re sults for DRUG (IMMUNOASSAY) - AM DONOR CENTER TECHNICIAN this pr ocedure COMPREHENSIVE DRUG are in th e SCREEN results section. BASIC METABOLIC PANEL Routine 08/27/2020 4:57 Re sults for (NA, K, CL, CO2, AM DONOR CENTER TECHNICIAN this proced ure GLUCOSE, BUN, are in the CREATININE, CA) results section. PHOSPHORUS Routine 08/27/2020 4:57 Results for AM DONOR CENTER TECHNICIAN this procedure are in the results section. BASIC METABOLIC PANEL Routine 08/26/2020 11:51 Re sults for (NA, K, CL, CO2, PM DONOR CENTER TECHNICIAN this proced ure GLUCOSE, BUN, are in the CREATININE, CA) results section. PHOSPHORUS Routine 08/26/2020 9:20 Results for AM DONOR CENTER TECHNICIAN this procedure are in the results section. BASIC METABOLIC PANEL STAT 08/26/2020 9:19 Re sults for (NA, K, CL, CO2, AM DONOR CENTER TECHNICIAN this proced ure GLUCOSE, BUN, are in the CREATININE, CA) results section. MAGNESIUM Routine 08/26/2020 9:19 Results for AM DONOR CENTER TECHNICIAN this procedure are in the results section. BASIC METABOLIC PANEL Routine 08/25/2020 4:38 Re sults for (NA, K, CL, CO2, PM DONOR CENTER TECHNICIAN this proced ure GLUCOSE, BUN, are in the CREATININE, CA) results section. MAGNESIUM Routine 08/25/2020 4:38 Results for PM DONOR CENTER TECHNICIAN this procedure are in the results section. EXTRA TUBE LAV Routine 08/25/2020 4:31 PM DONOR CENTER TECHNICIAN BASIC METABOLIC PANEL Routine 08/25/2020 12:28 Re sults for (NA, K, CL, CO2, AM DONOR CENTER TECHNICIAN this proced ure GLUCOSE, BUN, are in the CREATININE, CA) results section. MAGNESIUM Routine 08/25/2020 12:28 Results for AM DONOR CENTER TECHNICIAN this procedure are in the results section. PHOSPHORUS Routine 08/25/2020 12:28 Results for AM DONOR CENTER TECHNICIAN this procedure are in the results section. GALV ONLY - URINE Routine 08/24/2020 4:20 Result s for DRUG (LCMSMS) - MDMA AM DONOR CENTER TECHNICIAN this pr ocedure PANEL are in the results section. GALV ONLY - URINE Routine 08/24/2020 4:20 Result s for DRUG (LCMSMS) - CATHY AM DONOR CENTER TECHNICIAN this pr ocedure PANEL are in the results section. CHLORIDE, URINE Add-on 08/24/2020 4:20 Results for RANDOM AM DONOR CENTER TECHNICIAN this procedure are in the results section. POTASSIUM, URINE Add-on 08/24/2020 4:20 Results for RANDOM AM DONOR CENTER TECHNICIAN this procedure are in the results section. URINALYSIS Routine 08/24/2020 4:20 Results for AM DONOR CENTER TECHNICIAN this procedure are in the results section. GALV/CLC ONLY - URINE Routine 08/24/2020 4:20 Re sults for DRUG (IMMUNOASSAY) - AM DONOR CENTER TECHNICIAN this pr ocedure COMPREHENSIVE DRUG are in th e SCREEN results section. OSMOLALITY URINE Add-on 08/24/2020 4:20 Results for AM DONOR CENTER TECHNICIAN this procedure are in the results section. GALV ONLY - SYPHILIS Routine 08/24/2020 4:03 Res ults for IGG/IGM AM DONOR CENTER TECHNICIAN this procedure are in the results section. HIV 1/2 AG-AB WITH Routine 08/24/2020 4:03 Resul ts for REFLEX AM DONOR CENTER TECHNICIAN this procedure are in the results section. VITAMIN D, 25-OH Routine 08/24/2020 4:03 Results for AM DONOR CENTER TECHNICIAN this procedure are in the results section. RPR (QUANTITATIVE) Routine 08/24/2020 4:03 Resul ts for AM DONOR CENTER TECHNICIAN this procedure are in the results section. HEPATITIS B CORE Routine 08/24/2020 4:03 Results for ANTIBODY IGM AM DONOR CENTER TECHNICIAN this procedure are in the results section. HCV ANTIBODY Routine 08/24/2020 4:03 Results for AM DONOR CENTER TECHNICIAN this procedure are in the results section. HEPATITIS B SURFACE Routine 08/24/2020 4:03 Resu lts for ANTIGEN AM DONOR CENTER TECHNICIAN this procedure are in the results section. HEPATITIS B SURFACE Routine 08/24/2020 4:03 Resu lts for ANTIBODY AM DONOR CENTER TECHNICIAN this procedure are in the results section. T. PALLIDUM PARTICLE Routine 08/24/2020 4:03 Res ults for AGG AM DONOR CENTER TECHNICIAN this procedure are in the results section. IRON PANEL Routine 08/24/2020 4:03 Results for AM DONOR CENTER TECHNICIAN this procedure are in the results section. BASIC METABOLIC PANEL Routine 08/24/2020 4:03 Re sults for (NA, K, CL, CO2, AM DONOR CENTER TECHNICIAN this proced ure GLUCOSE, BUN, are in the CREATININE, CA) results section. THYROID STIMULATING Routine 08/24/2020 4:03 Resu lts for HORMONE AM DONOR CENTER TECHNICIAN this procedure are in the results section. C-REACTIVE PROTEIN Routine 08/24/2020 4:03 Resul ts for AM DONOR CENTER TECHNICIAN this procedure are in the results section. FOLATE Routine 08/24/2020 4:03 Results for AM DONOR CENTER TECHNICIAN this procedure are in the results section. VITAMIN B12, LEVEL Routine 08/24/2020 4:03 Resul ts for AM DONOR CENTER TECHNICIAN this procedure are in the results section. OSMOLALITY SERUM Add-on 08/24/2020 4:03 Results for AM DONOR CENTER TECHNICIAN this procedure are in the results section. FERRITIN SERUM Routine 08/24/2020 4:03 Results f or AM DONOR CENTER TECHNICIAN this procedure are in the results section. MAGNESIUM Routine 08/24/2020 4:03 Results for AM DONOR CENTER TECHNICIAN this procedure are in the results section. PHOSPHORUS Routine 08/24/2020 4:03 Results for AM DONOR CENTER TECHNICIAN this procedure are in the results section. PREALBUMIN, SERUM Routine 08/24/2020 4:03 Result s for AM DONOR CENTER TECHNICIAN this procedure are in the results section. HB ECG ROUTINE & Routine 08/24/2020 2:21 Generalized abdomina l RHYTHM STRIP AM DONOR CENTER TECHNICIAN pain Vomiting, intractability of vomiting not specified, presence of nausea not specified, unspecified vomiting type CT THORAX W CONTRAST STAT 08/23/2020 9:14 Generalized abdo marjorie Results for PM CDT pain this procedure Vomiting, are in the intractability of results vomiting not section. specified, presence of nausea not specified, unspecified vomiting type Globus sensation CT ABDOMEN PELVIS W STAT 08/23/2020 9:14 Generalized abdom inal Results for CONTRAST PM CDT pain this procedure Vomiting, are in the intractability of results vomiting not section. specified, presence of nausea not specified, unspecified vomiting type CBC WITH DIFF STAT 08/23/2020 7:52 Generalized abdominal R esults for PM CDT pain this procedure are in the results section. BASIC METABOLIC PANEL STAT 08/23/2020 7:52 Generalized abd ominal Results for (NA, K, CL, CO2, PM CDT pain this proced ure GLUCOSE, BUN, are in the CREATININE, CA) results section. HEPATIC FUNCTION STAT 08/23/2020 7:52 Generalized abdomina l Results for PANEL (24496) PM CDT pain this procedure (ALB,T.PRO,BILI are in the T,BU/BC,ALT,AST,ALK results PHOS) section. TROPONIN I STAT 08/23/2020 7:52 Generalized abdominal Re sults for PM CDT pain this procedure are in the results section. MAGNESIUM STAT Add-On 08/23/2020 7:52 Generalized abdominal Re sults for PM CDT pain this procedure Vomiting, are in the intractability of results vomiting not section. specified, presence of nausea not specified, unspecified vomiting type LIPASE STAT 08/23/2020 7:52 Generalized abdominal Re sults for PM CDT pain this procedure are in the results section. HB ECG ROUTINE & STAT 08/23/2020 7:22 Generalized abdomina l RHYTHM STRIP PM CDT pain LAB ONLY COVID STAT 08/23/2020 7:11 Generalized abdominal Results for INTERPRETATION PM CDT pain this procedur e are in the results section. COVID-19 (ID NOW STAT 08/23/2020 7:11 Generalized abdomina l Results for RAPID TESTING) PM CDT pain this procedur e are in the results section. XR CHEST 1 VW STAT 08/23/2020 6:55 Generalized abdominal R esults for PM CDT pain this procedure are in the results section. NOTICE OF PRIVACY Routine 08/23/2020 5:56 PRACTICES PM CDT documented in this encounter Results MAGNESIUM (08/30/2020 4:45 AM DONOR CENTER TECHNICIAN) Pathologist Sig nature MAGNESIUM 2.2 1.7 - 2.4 mg/dL [facility] Specimen Blood - LINE, VENOUS Performing Organization Address City/State/Zipcode Phone Number [facility] CLIA: [id number] [place], [place] [id number] [address] [place] [address] BASIC METABOLIC PANEL (NA, K, CL, CO2, GLUCOSE, BUN, CREATININE, CA) (08/30/2020 4:45 AM DONOR CENTER TECHNICIAN) NA 143 135 - 145 [facility] mmol/L SERVICES K 3.9Comment: 3.5 - 5.0 [facility] Slight hemolysis mmol/L SERVICES CL 106 98 - 108 [facility] mmol/L SERVICES CO2 TOTAL 33 (H) 23 - 31 [facility] mmol/L SERVICES AGAP 4 2 - 16 [facility] BUN 9Comment: Slight 7 - 23 mg/dL [facility] hemolysis SERVICES GLUCOSE 97 70 - 110 [facility] mg/dL SERVICES CREATININE 0.85 0.60 - 1.25 [facility] mg/dL SERVICES CALCIUM 8.5 (L) 8.6 - 10.6 [facility] mg/dL SERVICES eGFR Calculation 102.0 mL/min/1.73m2 [facility] (Non- SERVICES Citizen Of [place]) eGFR Calculation 123.6 mL/min/1.73m2 [facility] () SERVICES Specimen Blood - LINE, VENOUS Narrative Performed At Association of Glomerular Filtration Rate (GFR) and St aging [facility] of Kidney Disease* + + +------- ------ + | GFR (mL/min/1.73 m2) | With Kidney Damage | Wi thout Kidney Damage + + +------- ------ + | >90 | Stage one | Normal + + +------- ------ + | 60-89 | Stage two | Decreased GFR + + +------- ------ + | 30-59 | Stage three | Stage three + + +------- ------ + | 15-29 | Stage four | Stage four + + +------- ------ + | <15 (or dialysis) | Stage five | Stage five + + +------- ------ + *Each stage assumes the associated GFR level has been in effect for at least three months. Stages 1 to 5, wit h or without kidney disease, indicate chronic kidney disease. Notes: Determination of stages one and two (with eGFR >59mL/min/1.73 m2) requires estimation of kidney damag e for at least three months as defined by structural or func tional abnormalities of the kidney, manifested by either: Pathological abnormalities or Markers of kidney damage (including abnormalities in the composition of the blo od or urine or abnormalities in imaging tests) . Performing Organization Address City/State/Zipcode Phone Number [facility] CLIA: [id number] [place] [address] [place] [address] BASIC METABOLIC PANEL (NA, K, CL, CO2, GLUCOSE, BUN, CREATININE, CA) (08/29/2020 3:28 PM DONOR CENTER TECHNICIAN) [facility] NA 143 135 - 145 [facility] mmol/L SERVICES K 3.5 3.5 - 5.0 [facility] mmol/L SERVICES CL 103 98 - 108 mmol/L [facility] CO2 TOTAL 33 (H) 23 - 31 mmol/L [facility] AGAP 7 2 - 16 [facility] BUN 7 7 - 23 mg/dL [facility] GLUCOSE 83 70 - 110 mg/dL [facility] CREATININE 0.85 0.60 - 1.25 [facility] mg/dL SERVICES CALCIUM 8.7 8.6 - 10.6 [facility] mg/dL SERVICES eGFR Calculation 102.0 mL/min/1.73m2 [facility] (Non-) SERVICES eGFR Calculation 123.6 mL/min/1.73m2 [facility] () SERVICES Specimen Blood - HAND, LEFT Narrative Performed At Association of Glomerular Filtration Rate (GFR) and St aging [facility] of Kidney Disease* + + +------- ------ + | GFR (mL/min/1.73 m2) | With Kidney Damage | Wi out Kidney Damage + + +------- ------ + | >90 | Stage one | Normal + + +------- ------ + | 60-89 | Stage two | Decreased GFR + + +------- ------ + | 30-59 | Stage three | Stage three + + +------- ------ + | 15-29 | Stage four | Stage four + + +------- ------ + | <15 (or dialysis) | Stage five | Stage five + + +------- ------ + *Each stage assumes the associated GFR level has been in effect for at least three months. Stages 1 to 5, wit h or without kidney disease, indicate chronic kidney disease. Notes: Determination of stages one and two (with eGFR >59mL/min/1.73 m2) requires estimation of kidney damag e for at least three months as defined by structural or func tional abnormalities of the kidney, manifested by either: Pathological abnormalities or Markers of kidney damage (including abnormalities in the composition of the blo od or urine or abnormalities in imaging tests) . Performing Organization Address City/State/Zipcode Phone Number [facility] CLIA: [id number] [place] [address] [place] [address] BARIUM SWALLOW ESOPHAGUS (08/29/2020 2:14 PM DONOR CENTER TECHNICIAN) Specimen Impressions Performed At PACS/VR/DOSE Diffuse, marked dilatation of the esophagus throughout its length. Abrupt focal narrowing at the gastroesophageal junction in a pattern that may be seen with achalasia. Preliminary Report Dictated by Resident: Nina Barragan I, Lili Marroquin MD., have reviewed this study and agree with the above report. Narrative Performed At [place] BARIUM SWALLOW ESOPHAGUS PACS/VR/DOSE HISTORY: 35 years-old; Male with history of syphilis for evaluation of possible achalasia COMPARISON: CT chest 08/23/2020 TECHNIQUE: Oral barium was administered as contrast for this exam. Fluoroscopy and films of the hypopharynx , esophagus, and stomach were obtained. FINDINGS: Esophagus: Grossly abnormal appearance of the esoph cesar which is diffusely and markedly dilated. After administration of barium, nume jose rafael filling defects are noted within the esophageal lumen co nsistent with retained ingested material within the esophagus. Smooth focal short segment narrowing at the gastroesophageal junction is observed. Relaxation and distention of this segment is not observed during the examination. Evaluation is limited a s no imaging provided beyond the level of the gastroesophageal junction was obtained. T his limits evaluation of both the gastroesophageal junction and its relation ship to the proximal stomach. Procedure Note [facility], Radiant Results Inft User - 2019 10:37 PM DONOR CENTER TECHNICIAN [place] BARIUM SWALLOW ESOPHAGUS HISTORY: 35 years-old; Male with history of syphilis for evaluation of possible achalasia COMPARISON: CT chest 08/23/2020 TECHNIQUE: Oral barium was administered as contrast for this exam. Fluoroscopy and films of the hypopharynx , esophagus, and stomach were obtained. FINDINGS: Esophagus: Grossly abnormal appearance of the esoph cesar which is diffusely and markedly dilated. After administration o f barium, numerous filling defects are noted within the esophageal lumen co nsistent with retained ingested material within the esophagus. Smooth focal short segment narrowing at the gastroesophageal junction is observed. Relaxation and distention of t his segment is not observed during the examination. Evaluation is limited a s no imaging provided beyond the level of the gastroesophageal junction w as obtained. This limits evaluation of both the gastroesophageal junction an d its relationship to the proximal stomach. IMPRESSION Diffuse, marked dilatation of the esopha lupis throughout its length. Abrupt focal narrowing at the gastroesophageal junction in a pattern that may be seen with achalasia. Preliminary Report Dictated by Resident: Lili Mandujano MD., have reviewed this study and agree with the above report. Performing Organization Address City/State/Zipcode Phone Number PACS/VR/DOSE BASIC METABOLIC PANEL (NA, K, CL, CO2, GLUCOSE, BUN, CREATININE, CA) (08/29/2020 5:00 AM DONOR CENTER TECHNICIAN) Pathologist Sig nature NA 145 135 - 145 [facility] mmol/L SERVICES K 3.1 (L) 3.5 - 5.0 [facility] mmol/L SERVICES CL 106 98 - 108 mmol/L [facility] CO2 TOTAL 33 (H) 23 - 31 mmol/L [facility] AGAP 6 2 - 16 [facility] BUN 6 (L) 7 - 23 mg/dL [facility] GLUCOSE 89 70 - 110 mg/dL [facility] CREATININE 0.87 0.60 - 1.25 [facility] mg/dL SERVICES CALCIUM 8.5 (L) 8.6 - 10.6 [facility] mg/dL SERVICES eGFR Calculation 99.3 mL/min/1.73m2 [facility] (Non- SERVICES Citizen Of [place]) eGFR Calculation 120.3 mL/min/1.73m2 [facility] () SERVICES Specimen Blood - HAND, RIGHT Narrative Performed At Association of Glomerular Filtration Rate (GFR) and St aging [facility] of Kidney Disease* + + +------- ------ + | GFR (mL/min/1.73 m2) | With Kidney Damage | Wi thout Kidney Damage + + +------- ------ + | >90 | Stage one | Normal + + +------- ------ + | 60-89 | Stage two | Decreased GFR + + +------- ------ + | 30-59 | Stage three | Stage three + + +------- ------ + | 15-29 | Stage four | Stage four + + +------- ------ + | <15 (or dialysis) | Stage five | Stage five + + +------- ------ + *Each stage assumes the associated GFR level has been in effect for at least three months. Stages 1 to 5, wit h or without kidney disease, indicate chronic kidney disease. Notes: Determination of stages one and two (with eGFR >59mL/min/1.73 m2) requires estimation of kidney damag e for at least three months as defined by structural or func tional abnormalities of the kidney, manifested by either: Pathological abnormalities or Markers of kidney damage (including abnormalities in the composition of the blo od or urine or abnormalities in imaging tests) . Performing Organization Address City/State/Zipcode Phone Number [facility] CLIA: [id number] [place] [address] [place] [address] Blvd COVID-19 (ID NOW RAPID TESTING) (08/28/2020 7:15 PM DONOR CENTER TECHNICIAN) SARS-CoV-2 Rapid ID Not Detected Not Detected [facility] NOW SERVICES Specimen Swab - NASOPHARYNGEAL SWAB Narrative Performed At ID NOW COVID-19 Assay is an isothermal nucleic acid [facility] amplification test intended for the qualitative detect ion of nucleic acid from SARS-CoV-2 viral RNA in nasopharynge al (FISHERIES MANAGER) specimens. It is used under Emergency Use Authori zation (EUA) by FDA. The limit of detection (LOD) of the assa y is 125 Genome Equivalents/mL. A positive result is indicative of the presence of SARS-CoV-2 RNA. Clinical correlation with patient hi story and other diagnostic information is necessary to deter mine patient infection status. A negative (Not Detected) result does not preclude SARS-CoV-2 infection. In patients with clinical sympto ms and other tests that are consistent with SARS-CoV-2 infect ion, negative results should be treated as presumptive nega tive and a new specimen should be tested with alternative P CR molecular test. Invalid: Please collect a new specimen for repeat olimpia ent testing if clinically indicated. Performing Organization Address City/State/Zipcode Phone Number [facility] CLIA: [id number] [place] [address] [place] [address] GALV ONLY - URINE DRUG (LCMSMS) - MDMA PANEL (08/28/2020 7:14 PM DONOR CENTER TECHNICIAN) Pathologist Sig nature MDA-Interpretation Negative Negative [facility] SERVIC ES MDMA-Interpretation Negative Negative [facility] SERVI NORMAN MDEA-Interpretation Negative Negative [facility] SERVI [place]MAN CREAT U 192.8 mg/dL [facility] SERVICES Specimen Urine - URINE, CLEAN CATCH Narrative Performed At Test developed and characteristics determined by [facility] Laboratory Services. Performing Organization Address City/State/Zipcode Phone Number [facility] CLIA: [id number] [place] [address] [place] [address] GALV ONLY - URINE DRUG (LCMSMS) - CATHY PANEL (08/28/2020 7:14 PM DONOR CENTER TECHNICIAN) Pathologist Sig nature Amphetamine-LCMS 5,473 (H) <100 ng/mL [facility] Amphetamine-Creatini 2,839 ng/mg [facility] ne Normalized SERVICES Amphetamine-Interpre Positive (A) Negative [facility] tation SERVICES METHAMPH-LCMS 9,744 (H) <100 ng/mL [facility] SERVICES METHAMPH-CREATININE 5,054 ng/mg [facility] NORMALIZED SERVICES METHAMPH-INTERPREPRE Positive (A) Negative [facility] TATION SERVICES BENZOYLE-LCMS 4,323 (H) <50 ng/mL [facility] BENZOYLE-CREATININE 2,242 ng/mg [facility] NORMALIZED SERVICES BENZOYLE-INTERPRETAT Positive (A) Negative [facility] ION SERVICES PHENCYCLID-INTERPRET Negative Negative [facility] ATION SERVICES CREAT U 192.8 mg/dL [facility] SERVICES Specimen Urine - URINE, CLEAN CATCH Narrative Performed At Test developed and characteristics determined by [facility] Laboratory Services. Performing Organization Address City/State/Zipcode Phone Number [facility] CLIA: [id number] [place] [address] [place] [address] GALV/CLC ONLY - URINE DRUG (IMMUNOASSAY) - COMPREHENSIVE DRUG SCREEN (08/28/2020 7:14 PM DONOR CENTER TECHNICIAN) AMPHET Presumptive Negative [facility] Positive (A) SERVICES KAIT U Negative Negative [facility] BENZO U Negative Negative [facility] Cocaine Metabolite Presumptive Negative [facility] Positive (A) SERVICES METHADONE Negative Negative [facility] SERVICES OPIATES Negative Negative [facility] PCP Negative Negative [facility] THC Negative Negative [facility] SERVICES Specimen Urine - URINE, CLEAN CATCH Narrative Performed At Urine Drug Cutoff Ranges [facility] Cocaine: 150 ng/mL Benzodiazepines: 200 ng/mL Methadone: 300 ng/mL Amphetamine: 1,000 ng/mL Opiates: 300 ng/mL Cannabinoids: 50 ng/mL Phencyclidine: 25 ng/mL Barbiturates: 200 ng/mL The results are to be used only for medical (i.e., treatment) purposes. Unconfirmed screening results mus t not be used for non-medical purposes (e.g., employment adina ting, legal testing). Performing Organization Address City/State/Zipcode Phone Number [facility] CLIA: [id number] [place] [address] [place] [address] BASIC METABOLIC PANEL (NA, K, CL, CO2, GLUCOSE, BUN, CREATININE, CA) (08/28/2020 3:49 PM DONOR CENTER TECHNICIAN) Pathologist Sig nature NA 144 135 - 145 [facility] mmol/L SERVICES K 3.3 (L) 3.5 - 5.0 [facility] mmol/L SERVICES CL 106 98 - 108 mmol/L [facility] SERVICES CO2 TOTAL 36 (H) 23 - 31 mmol/L [facility] AGAP 2 2 - 16 [facility] BUN 6 (L) 7 - 23 mg/dL [facility] SERVICES GLUCOSE 87 70 - 110 mg/dL [facility] CREATININE 0.96 0.60 - 1.25 [facility] mg/dL SERVICES CALCIUM 8.5 (L) 8.6 - 10.6 [facility] mg/dL SERVICES eGFR Calculation 88.6 mL/min/1.73m2 [facility] (Non- SERVICES Citizen [place]) eGFR Calculation 107.4 mL/min/1.73m2 [facility] () SERVICES Specimen Blood - ARM, RIGHT Narrative Performed At Association of Glomerular Filtration Rate (GFR) and St aging [facility] SERVICES of Kidney Disease* + + +------- ------ + | GFR (mL/min/1.73 m2) | With Kidney Damage | Wi genaroout Kidney Damage + + +------- ------ + | >90 | Stage one | Normal + + +------- ------ + | 60-89 | Stage two | Decreased GFR + + +------- ------ + | 30-59 | Stage three | Stage three + + +------- ------ + | 15-29 | Stage four | Stage four + + +------- ------ + | <15 (or dialysis) | Stage five | Stage five + + +------- ------ + *Each stage assumes the associated GFR level has been in effect for at least three months. Stages 1 to 5, wit h or without kidney disease, indicate chronic kidney disease. Notes: Determination of stages one and two (with eGFR >59mL/min/1.73 m2) requires estimation of kidney damag e for at least three months as defined by structural or func tional abnormalities of the kidney, manifested by either: Pathological abnormalities or Markers of kidney damage (including abnormalities in the composition of the blo od or urine or abnormalities in imaging tests) . Performing Organization Address City/State/Zipcode Phone Number [facility] CLIA: [id number] [place] [address] [place] [address] Blvd PHOSPHORUS (08/28/2020 7:00 AM DONOR CENTER TECHNICIAN) [facility] PHOSPHORUS 2.7 2.5 - 5.0 mg/dL [facility] SERVICES Specimen Blood - ARM, LEFT Performing Organization Address City/State/Zipcode Phone Number [facility] CLIA: [id number] [facility] [place] [address] [address] [place] [address] BASIC METABOLIC PANEL (NA, K, CL, CO2, GLUCOSE, BUN, CREATININE, CA) (08/28/2020 7:00 AM DONOR CENTER TECHNICIAN) [facility] nature NA 145 135 - 145 [facility] mmol/L SERVICES K 3.2 (L) 3.5 - 5.0 [facility] mmol/L SERVICES CL 107 98 - 108 mmol/L [facility] SERVICES CO2 TOTAL 34 (H) 23 - 31 mmol/L [facility] SERVICES AGAP 4 2 - 16 [facility] BUN 5 (L) 7 - 23 mg/dL [facility] SERVICES GLUCOSE 64 (L) 70 - 110 mg/dL [facility] SERVICES CREATININE 0.84 0.60 - 1.25 [facility] mg/dL SERVICES CALCIUM 8.6 8.6 - 10.6 [facility] mg/dL SERVICES eGFR Calculation 103.4 mL/min/1.73m2 [facility] (Non- SERVICES Citizen [place]) eGFR Calculation 125.3 mL/min/1.73m2 [facility] () SERVICES Specimen Blood - ARM, LEFT Narrative Performed At Association of Glomerular Filtration Rate (GFR) and St aging [facility] of Kidney Disease* + + +------- ------ + | GFR (mL/min/1.73 m2) | With Kidney Damage | Wi thout Kidney Damage + + +------- ------ + | >90 | Stage one | Normal + + +------- ------ + | 60-89 | Stage two | Decreased GFR + + +------- ------ + | 30-59 | Stage three | Stage three + + +------- ------ + | 15-29 | Stage four | Stage four + + +------- ------ + | <15 (or dialysis) | Stage five | Stage five + + +------- ------ + *Each stage assumes the associated GFR level has been in effect for at least three months. Stages 1 to 5, wit h or without kidney disease, indicate chronic kidney disease. Notes: Determination of stages one and two (with eGFR >59mL/min/1.73 m2) requires estimation of kidney damag e for at least three months as defined by structural or func tional abnormalities of the kidney, manifested by either: Pathological abnormalities or Markers of kidney damage (including abnormalities in the composition of the blo od or urine or abnormalities in imaging tests) . Performing Organization Address City/State/Zipcode Phone Number [facility] CLIA: [id number] [place] [address] [place] [address] BASIC METABOLIC PANEL (NA, K, CL, CO2, GLUCOSE, BUN, CREATININE, CA) (08/27/2020 9:40 PM DONOR CENTER TECHNICIAN) Pathologist [facility] [place] 149 (H) 135 - 145 [facility] mmol/L SERVICES K 3.0 (L) 3.5 - 5.0 [facility] mmol/L SERVICES CL 108 98 - 108 mmol/L [facility] SERVICES CO2 TOTAL 35 (H) 23 - 31 mmol/L [facility] SERVICES AGAP 6 2 - 16 [facility] BUN 6 (L) 7 - 23 mg/dL [facility] SERVICES GLUCOSE 84 70 - 110 mg/dL [facility] SERVICES CREATININE 0.89 0.60 - 1.25 [facility] mg/dL SERVICES CALCIUM 8.7 8.6 - 10.6 [facility] mg/dL SERVICES eGFR Calculation 96.7 mL/min/1.73m2 [facility] (Non- SERVICES Citizen Of [place]) eGFR Calculation 117.2 mL/min/1.73m2 [facility] () SERVICES Specimen Blood - ARM, LEFT Narrative Performed At Association of Glomerular Filtration Rate (GFR) and St aging [facility] SERVICES of Kidney Disease* + + +------- ------ + | GFR (mL/min/1.73 m2) | With Kidney Damage | Wi thout Kidney Damage + + +------- ------ + | >90 | Stage one | Normal + + +------- ------ + | 60-89 | Stage two | Decreased GFR + + +------- ------ + | 30-59 | Stage three | Stage three + + +------- ------ + | 15-29 | Stage four | Stage four + + +------- ------ + | <15 (or dialysis) | Stage five | Stage five + + +------- ------ + *Each stage assumes the associated GFR level has been in effect for at least three months. Stages 1 to 5, wit h or without kidney disease, indicate chronic kidney disease. Notes: Determination of stages one and two (with eGFR >59mL/min/1.73 m2) requires estimation of kidney damag e for at least three months as defined by structural or func tional abnormalities of the kidney, manifested by either: Pathological abnormalities or Markers of kidney damage (including abnormalities in the composition of the blo od or urine or abnormalities in imaging tests) . Performing Organization Address City/State/Zipcode Phone Number [facility] CLIA: [id number] [place] [address] [place] [address] BASIC METABOLIC PANEL (NA, K, CL, CO2, GLUCOSE, BUN, CREATININE, CA) (08/27/2020 12:08 PM DONOR CENTER TECHNICIAN) NA 145 135 - 145 [facility] mmol/L SERVICES K 3.5Comment: 3.5 - 5.0 [facility] Slight hemolysis mmol/L SERVICES CL 109 (H) 98 - 108 [facility] mmol/L SERVICES CO2 TOTAL 32 (H) 23 - 31 [facility] mmol/L SERVICES AGAP 4 2 - 16 [facility] SERVICES BUN 4 (L)Comment: 7 - 23 mg/dL [facility] Slight hemolysis SERVICES GLUCOSE 70 70 - 110 [facility] mg/dL SERVICES CREATININE 0.76 0.60 - 1.25 [facility] mg/dL SERVICES CALCIUM 8.4 (L) 8.6 - 10.6 [facility] mg/dL SERVICES eGFR Calculation 116.1 mL/min/1.73m2 [facility] (Non- SERVICES Citizen [place]) eGFR Calculation 140.7 mL/min/1.73m2 [facility] () SERVICES Specimen Blood - HAND, LEFT Narrative Performed At Association of Glomerular Filtration Rate (GFR) and St aging [facility] SERVICES of Kidney Disease* + + +------- ------ + | GFR (mL/min/1.73 m2) | With Kidney Damage | Wi thout Kidney Damage + + +------- ------ + | >90 | Stage one | Normal + + +------- ------ + | 60-89 | Stage two | Decreased GFR + + +------- ------ + | 30-59 | Stage three | Stage three + + +------- ------ + | 15-29 | Stage four | Stage four + + +------- ------ + | <15 (or dialysis) | Stage five | Stage five + + +------- ------ + *Each stage assumes the associated GFR level has been in effect for at least three months. Stages 1 to 5, wit h or without kidney disease, indicate chronic kidney disease. Notes: Determination of stages one and two (with eGFR >59mL/min/1.73 m2) requires estimation of kidney damag e for at least three months as defined by structural or func tional abnormalities of the kidney, manifested by either: Pathological abnormalities or Markers of kidney damage (including abnormalities in the composition of the blo od or urine or abnormalities in imaging tests) . Performing Organization Address City/State/Zipcode Phone Number [facility] CLIA: [id number] [place] [id number] [phone] 301 [facility] GALV ONLY - URINE DRUG (LCMSMS) - MDMA PANEL (08/27/2020 11:28 AM DONOR CENTER TECHNICIAN) Pathologist Sig nature MDA-Interpretation Negative Negative [facility] SERVIC ES MDMA-Interpretation Negative Negative [facility] [place] MDEA-Interpretation Negative Negative [facility] SERVI [place] CREAT U 82.6 mg/dL [facility] SERVICES Specimen Urine - URINE, CLEAN CATCH Narrative Performed At Test developed and characteristics determined by [facility] Laboratory Services. Performing Organization Address City/State/Zipcode Phone Number [facility] CLIA: [id number] [place] [address] [phone] 301 [facility] GALV ONLY - URINE DRUG (LCMSMS) - CATHY PANEL (08/27/2020 11:28 AM DONOR CENTER TECHNICIAN) Pathologist Sig nature Amphetamine-LCMS 3,703 (H) <100 ng/mL [facility] SERVICES Amphetamine-Creatini 4,483 ng/mg [facility] ne Normalized SERVICES Amphetamine-Interpre Positive (A) Negative [facility] tation SERVICES METHAMPH-LCMS 9,863 (H) <100 ng/mL [facility] SERVICES METHAMPH-CREATININE 11,941 ng/mg [facility] NORMALIZED SERVICES METHAMPH-INTERPREPRE Positive (A) Negative [facility] TATION SERVICES BENZOYLE-LCMS 3,805 (H) <50 ng/mL [facility] BENZOYLE-CREATININE 4,607 ng/mg [facility] NORMALIZED SERVICES BENZOYLE-INTERPRETAT Positive (A) Negative [facility] ION SERVICES PHENCYCLID-INTERPRET Negative Negative [facility] ATION SERVICES CREAT U 82.6 mg/dL [facility] SERVICES Specimen Urine - URINE, CLEAN CATCH Narrative Performed At Test developed and characteristics determined by [facility] Laboratory Services. Performing Organization Address City/State/Zipcode Phone Number [facility] CLIA: [id number] [place] [address] [phone] 301 [facility] GALV/CLC ONLY - URINE DRUG (IMMUNOASSAY) - COMPREHENSIVE DRUG SCREEN (08/27/2020 11:28 AM DONOR CENTER TECHNICIAN) AMPHET Presumptive Negative [facility] Positive (A) SERVICES KAIT U Negative Negative [facility] SERVICES BENZO U Negative Negative [facility] SERVICES Cocaine Metabolite Presumptive Negative [facility] Positive (A) SERVICES METHADONE Negative Negative [facility] SERVICES OPIATES Negative Negative [facility] PCP Negative Negative [facility] THC Negative Negative [facility] SERVICES Specimen Urine - URINE, CLEAN CATCH Narrative Performed At Urine Drug Cutoff Ranges [facility] Cocaine: 150 ng/mL Benzodiazepines: 200 ng/mL Methadone: 300 ng/mL Amphetamine: 1,000 ng/mL Opiates: 300 ng/mL Cannabinoids: 50 ng/mL Phencyclidine: 25 ng/mL Barbiturates: 200 ng/mL The results are to be used only for medical (i.e., treatment) purposes. Unconfirmed screening results mus t not be used for non-medical purposes (e.g., employment adina ting, legal testing). Performing Organization Address City/[facility]/Zipcode Phone Number [facility] CLIA: [id number] [place] [address] [place] [address] PHOSPHORUS (08/27/2020 4:57 AM DONOR CENTER TECHNICIAN) Pathologist Sig [facility] PHOSPHORUS 2.7 2.5 - 5.0 mg/dL [facility] SERVICES Specimen Blood - HAND, RIGHT Performing Organization Address [facility] Phone Number [facility] CLIA: [id number] [place] [address] [place] [address] BASIC METABOLIC PANEL (NA, K, CL, CO2, GLUCOSE, BUN, CREATININE, CA) (08/27/2020 4:57 AM DONOR CENTER TECHNICIAN) Pathologist Sig nature NA 147 (H) 135 - 145 [facility] mmol/L SERVICES K 4.1 3.5 - 5.0 [facility] mmol/L SERVICES CL 107 98 - 108 mmol/L [facility] SERVICES CO2 TOTAL 35 (H) 23 - 31 mmol/L [facility] SERVICES AGAP 5 2 - 16 [facility] SERVICES BUN 4 (L) 7 - 23 mg/dL [facility] SERVICES GLUCOSE 73 70 - 110 mg/dL [facility] SERVICES CREATININE 0.79 0.60 - 1.25 [facility] mg/dL SERVICES CALCIUM 8.3 (L) 8.6 - 10.6 [facility] mg/dL SERVICES eGFR Calculation 111.0 mL/min/1.73m2 [facility] (Non- SERVICES Citizen Of [place]) eGFR Calculation 134.5 mL/min/1.73m2 [facility] () SERVICES Specimen Blood - HAND, RIGHT Narrative Performed At Association of Glomerular Filtration Rate (GFR) and St aging [facility] SERVICES of Kidney Disease* + + +------- ------ + | GFR (mL/min/1.73 m2) | With Kidney Damage | Wi thout Kidney Damage + + +------- ------ + | >90 | Stage one | Normal + + +------- ------ + | 60-89 | Stage two | Decreased GFR + + +------- ------ + | 30-59 | Stage three | Stage three + + +------- ------ + | 15-29 | Stage four | Stage four + + +------- ------ + | <15 (or dialysis) | Stage five | Stage five + + +------- ------ + *Each stage assumes the associated GFR level has been in effect for at least three months. Stages 1 to 5, wit h or without kidney disease, indicate chronic kidney disease. Notes: Determination of stages one and two (with eGFR >59mL/min/1.73 m2) requires estimation of kidney damag e for at least three months as defined by structural or func tional abnormalities of the kidney, manifested by either: Pathological abnormalities or Markers of kidney damage (including abnormalities in the composition of the blo od or urine or abnormalities in imaging tests) . Performing Organization Address City/State/Zipcode Phone Number [facility] CLIA: [id number] [place] [address] [place] [address] BASIC METABOLIC PANEL (NA, K, CL, CO2, GLUCOSE, BUN, CREATININE, CA) (08/26/2020 11:51 PM DONOR CENTER TECHNICIAN) Pathologist Sig nature NA 146 (H) 135 - 145 [facility] mmol/L SERVICES K 3.1 (L) 3.5 - 5.0 [facility] mmol/L SERVICES CL 107 98 - 108 mmol/L [facility] SERVICES CO2 TOTAL 36 (H) 23 - 31 mmol/L [facility] SERVICES AGAP 3 2 - 16 [facility] SERVICES BUN 4 (L) 7 - 23 mg/dL [facility] SERVICES GLUCOSE 84 70 - 110 mg/dL [facility] SERVICES CREATININE 0.75 0.60 - 1.25 [facility] mg/dL SERVICES CALCIUM 7.9 (L) 8.6 - 10.6 [facility] mg/dL SERVICES eGFR Calculation 117.8 mL/min/1.73m2 [facility] (Non- SERVICES Citizen Of [place]) eGFR Calculation 142.8 mL/min/1.73m2 [facility] () SERVICES Specimen Blood - HAND, LEFT Narrative Performed At Association of Glomerular Filtration Rate (GFR) and St aging [facility] SERVICES of Kidney Disease* + + +------- ------ + | GFR (mL/min/1.73 m2) | With Kidney Damage | Wi thout Kidney Damage + + +------- ------ + | >90 | Stage one | Normal + + +------- ------ + | 60-89 | Stage two | Decreased GFR + + +------- ------ + | 30-59 | Stage three | Stage three + + +------- ------ + | 15-29 | Stage four | Stage four + + +------- ------ + | <15 (or dialysis) | Stage five | Stage five + + +------- ------ + *Each stage assumes the associated GFR level has been in effect for at least three months. Stages 1 to 5, wit h or without kidney disease, indicate chronic kidney disease. Notes: Determination of stages one and two (with eGFR >59mL/min/1.73 m2) requires estimation of kidney damag e for at least three months as defined by structural or func tional abnormalities of the kidney, manifested by either: Pathological abnormalities or Markers of kidney damage (including abnormalities in the composition of the blo od or urine or abnormalities in imaging tests) . Performing Organization Address City/[facility]/Zipcode Phone Number [facility] CLIA: [id number] [place], [place] [address] [address] [place] [address] PHOSPHORUS (08/26/2020 9:20 AM DONOR CENTER TECHNICIAN) Pathologist Sig nature PHOSPHORUS 3.0 2.5 - 5.0 mg/dL [facility] SERVICES Specimen Blood - ARM, LEFT Performing Organization Address [facility]/Zipcode Phone Number [facility] CLIA: [id number] [place] [address] [place] [address] BASIC METABOLIC PANEL (NA, K, CL, CO2, GLUCOSE, BUN, CREATININE, CA) (08/26/2020 9:19 AM DONOR CENTER TECHNICIAN) NA 147 (H) 135 - 145 [facility] mmol/L SERVICES K 2.2 (LL) 3.5 - 5.0 [facility] mmol/L SERVICES CL 102 98 - 108 mmol/L [facility] SERVICES CO2 TOTAL 39 (H) 23 - 31 mmol/L [facility] SERVICES AGAP 6 2 - 16 [facility] SERVICES BUN 5 (L) 7 - 23 mg/dL [facility] SERVICES GLUCOSE 71 70 - 110 mg/dL [facility] SERVICES CREATININE 0.86 0.60 - 1.25 [facility] mg/dL SERVICES CALCIUM 8.1 (L) 8.6 - 10.6 [facility] mg/dL SERVICES eGFR Calculation 100.6 mL/min/1.73m2 [facility] (Non- SERVICES Citizen Of [place]) eGFR Calculation 122.0 mL/min/1.73m2 [facility] () SERVICES Specimen Blood - ARM, LEFT Narrative Performed At Association of Glomerular Filtration Rate (GFR) and St aging [facility] SERVICES of Kidney Disease* + + +------- ------ + | GFR (mL/min/1.73 m2) | With Kidney Damage | Wi out Kidney Damage + + +------- ------ + | >90 | Stage one | Normal + + +------- ------ + | 60-89 | Stage two | Decreased GFR + + +------- ------ + | 30-59 | Stage three | Stage three + + +------- ------ + | 15-29 | Stage four | Stage four + + +------- ------ + | <15 (or dialysis) | Stage five | Stage five + + +------- ------ + *Each stage assumes the associated GFR level has been in effect for at least three months. Stages 1 to 5, wit h or without kidney disease, indicate chronic kidney disease. Notes: Determination of stages one and two (with eGFR >59mL/min/1.73 m2) requires estimation of kidney damag e for at least three months as defined by structural or func tional abnormalities of the kidney, manifested by either: Pathological abnormalities or Markers of kidney damage (including abnormalities in the composition of the blo od or urine or abnormalities in imaging tests) . Performing Organization Address City/[facility] Phone Number [facility] CLIA: [id number] [place] [address] [place] [address] MAGNESIUM (08/26/2020 9:19 AM DONOR CENTER TECHNICIAN) [facility] MAGNESIUM 2.4 1.7 - 2.4 mg/dL [facility] SERVICES Specimen Blood - ARM, LEFT Performing Organization Address [facility]/Zipcode Phone Number [facility] CLIA: [id number] [place] [address] [place] [address] BASIC METABOLIC PANEL (NA, K, CL, CO2, GLUCOSE, BUN, CREATININE, CA) (08/25/2020 4:38 PM DONOR CENTER TECHNICIAN) NA 145 135 - 145 [facility] mmol/L SERVICES K 2.0 (LL) 3.5 - 5.0 [facility] mmol/L SERVICES CL 103 98 - 108 mmol/L [facility] SERVICES CO2 TOTAL 38 (H) 23 - 31 mmol/L [facility] SERVICES AGAP 4 2 - 16 [facility] SERVICES BUN 7 7 - 23 mg/dL [facility] SERVICES GLUCOSE 86 70 - 110 mg/dL [facility] SERVICES CREATININE 0.90 0.60 - 1.25 [facility] mg/dL SERVICES CALCIUM 8.5 (L) 8.6 - 10.6 [facility] mg/dL SERVICES eGFR Calculation 95.5 mL/min/1.73m2 [facility] (Non- SERVICES Citizen Of [place]) eGFR Calculation 115.7 mL/min/1.73m2 [facility] () SERVICES Specimen Blood - ARM, LEFT Narrative Performed At Association of Glomerular Filtration Rate (GFR) and St aging [facility] SERVICES of Kidney Disease* + + +------- ------ + | GFR (mL/min/1.73 m2) | With Kidney Damage | Wi out Kidney Damage + + +------- ------ + | >90 | Stage one | Normal + + +------- ------ + | 60-89 | Stage two | Decreased GFR + + +------- ------ + | 30-59 | Stage three | Stage three + + +------- ------ + | 15-29 | Stage four | Stage four + + +------- ------ + | <15 (or dialysis) | Stage five | Stage five + + +------- ------ + *Each stage assumes the associated GFR level has been in effect for at least three months. Stages 1 to 5, wit h or without kidney disease, indicate chronic kidney disease. Notes: Determination of stages one and two (with eGFR >59mL/min/1.73 m2) requires estimation of kidney damag e for at least three months as defined by structural or func tional abnormalities of the kidney, manifested by either: Pathological abnormalities or Markers of kidney damage (including abnormalities in the composition of the blo od or urine or abnormalities in imaging tests) . Performing Organization Address City/State/Zipcode Phone Number [facility] CLIA: [id number] [place] [address] [place] [address] MAGNESIUM (08/25/2020 4:38 PM DONOR CENTER TECHNICIAN) [facility] MAGNESIUM 1.9 1.7 - 2.4 mg/dL [facility] SERVICES Specimen Blood - ARM, LEFT Performing Organization Address [facility] Phone Number [facility] CLIA: [id number] [place] [address] [phone] 301 [facility] EXTRA TUBE LAV (08/25/2020 4:31 PM DONOR CENTER TECHNICIAN) Specimen Blood Performing Organization Address [facility] Phone Number [facility] CLIA: [id number] [place] [address] [phone] 301 [facility] PHOSPHORUS (08/25/2020 12:28 AM DONOR CENTER TECHNICIAN) Pathologist Sig nature PHOSPHORUS 3.0 2.5 - 5.0 mg/dL [facility] SERVICES Specimen Blood - ARM, RIGHT Performing Organization Address [facility] Phone Number [facility] CLIA: [id number] [place] [address] [phone] 301 [facility] Basic Metabolic Panel (NA, K, CL, CO2, GLUCOSE, BUN, CREATININE, CA) (08/25/2020 12:28 AM DONOR CENTER TECHNICIAN) NA 148 (H) 135 - 145 [facility] mmol/L SERVICES K 2.0 (LL) 3.5 - 5.0 [facility] mmol/L SERVICES CL 107 98 - 108 mmol/L [facility] SERVICES CO2 TOTAL 34 (H) 23 - 31 mmol/L [facility] SERVICES AGAP 7 2 - 16 [facility] SERVICES BUN 8 7 - 23 mg/dL [facility] SERVICES GLUCOSE 101 70 - 110 mg/dL [facility] SERVICES CREATININE 0.87 0.60 - 1.25 [facility] mg/dL SERVICES CALCIUM 8.5 (L) 8.6 - 10.6 [facility] mg/dL SERVICES eGFR Calculation 99.3 mL/min/1.73m2 [facility] (Non- SERVICES Citizen Of [place]) eGFR Calculation 120.3 mL/min/1.73m2 [facility] () SERVICES Specimen Blood - ARM, RIGHT Narrative Performed At Association of Glomerular Filtration Rate (GFR) and St aging [facility] SERVICES of Kidney Disease* + + +------- ------ + | GFR (mL/min/1.73 m2) | With Kidney Damage | Wi thout Kidney Damage + + +------- ------ + | >90 | Stage one | Normal + + +------- ------ + | 60-89 | Stage two | Decreased GFR + + +------- ------ + | 30-59 | Stage three | Stage three + + +------- ------ + | 15-29 | Stage four | Stage four + + +------- ------ + | <15 (or dialysis) | Stage five | Stage five + + +------- ------ + *Each stage assumes the associated GFR level has been in effect for at least three months. Stages 1 to 5, wit h or without kidney disease, indicate chronic kidney disease. Notes: Determination of stages one and two (with eGFR >59mL/min/1.73 m2) requires estimation of kidney damag e for at least three months as defined by structural or func tional abnormalities of the kidney, manifested by either: Pathological abnormalities or Markers of kidney damage (including abnormalities in the composition of the blo od or urine or abnormalities in imaging tests) . Performing Organization Address [facility] Phone Number [facility] CLIA: [id number] [place] [address] [place] [address] Magnesium Serum (08/25/2020 12:28 AM DONOR CENTER TECHNICIAN) Pathologist Sig nature MAGNESIUM 2.0 1.7 - 2.4 mg/dL [facility] Specimen Blood - ARM, RIGHT Performing Organization Address [facility] Phone Number [facility] CLIA: [id number] [place] [address] [phone] 301 [facility] OSMOLALITY URINE (08/24/2020 4:20 AM DONOR CENTER TECHNICIAN) Pathologist Sig nature OSMO U 402 50-1,100 mOsm/kg [facility] SERVICES Specimen Urine - URINE, CLEAN CATCH Performing Organization Address [facility] Phone Number [facility] CLIA: [id number] [place] [address] [place] [address] POTASSIUM, URINE RANDOM (08/24/2020 4:20 AM DONOR CENTER TECHNICIAN) Pathologist Sig nature K URINE <2.5 mmol/L [facility] SERVICES Specimen Urine - URINE, CLEAN CATCH Performing Organization Address [facility] Phone Number [facility] CLIA: [id number] [place] [address] [phone] 301 [facility] CHLORIDE, URINE RANDOM (08/24/2020 4:20 AM DONOR CENTER TECHNICIAN) Pathologist Sig nature CL URINE 140 27 - 371 mmol/L [facility] SERVICES Specimen Urine - URINE, CLEAN CATCH Performing Organization Address City/State/Zipcode Phone Number [facility] CLIA: [id number] [place] [address] [place] [address] GALV ONLY - URINE DRUG (LCMSMS) - MDMA PANEL (08/24/2020 4:20 AM DONOR CENTER TECHNICIAN) Pathologist Sig nature MDA-Interpretation Negative Negative [facility] SERVIC ES MDMA-Interpretation Negative Negative [facility] MDEA-Interpretation Negative Negative [facility] [place] CREAT U 34.7 mg/dL [facility] SERVICES Specimen Urine - URINE, CLEAN CATCH Narrative Performed At Test developed and characteristics determined by [facility] Laboratory Services. Performing Organization Address City/[facility] Phone Number [facility] CLIA: [id number] [place] [address] [place] [address] GALV ONLY - URINE DRUG (LCMSMS) - CATHY PANEL (08/24/2020 4:20 AM DONOR CENTER TECHNICIAN) Amphetamine-LCMS 2,219 (H) <100 ng/mL [facility] SERVICES Amphetamine-Creatin 6,395 ng/mg [facility] ine Normalized SERVICES Amphetamine-Interpr Positive (A) Negative [facility] etation SERVICES METHAMPH-LCMS >45617 (H) <100 ng/mL [facility] SERVICES METHAMPH-CREATININE Comment: Unable to [facility] NORMALIZED canculate SERVICES METHAMPH-INTERPREPR Positive (A) Negative [facility] ETATION SERVICES BENZOYLE-LCMS 8,267 (H) <50 ng/mL [facility] BENZOYLE-CREATININE 23,824 ng/mg [facility] NORMALIZED SERVICES BENZOYLE-INTERPRETA Positive (A) Negative [facility] TION SERVICES PHENCYCLID-INTERPRE Negative Negative [facility] TATION SERVICES CREAT U 34.7 mg/dL [facility] SERVICES Specimen Urine - URINE, CLEAN CATCH Narrative Performed At Test developed and characteristics determined by [facility] Laboratory Services. Performing Organization Address City/State/Zipcode Phone Number [facility] CLIA: [id number] [place] [address] [phone] 301 [facility] URINALYSIS (08/24/2020 4:20 AM DONOR CENTER TECHNICIAN) Pathologist Sig nature APPEARANCE Clear Clear [facility] COLOR Straw (A) Yellow [facility] PH 7.0 4.8 - 8.0 [facility] SP GRAVITY 1.023 1.003 - 1.030 [facility] GLU U QUAL Normal Normal [facility] BLOOD Negative Negative [facility] KETONES Negative Negative [facility] PROTEIN Negative Negative [facility] UROBILIN Normal Normal [facility] BILIRUBIN Negative Negative [facility] NITRITE Negative Negative [facility] [place] ERICK Negative Negative [facility] RBC/HPF 4 (H) 0 - 3 HPF [facility] WBC/HPF 1 0 - 5 HPF [facility] BACTERIA Negative Negative [facility] MUCOUS Slight (A) Negative LPF [facility] SPERM 24 (H) <=1 HPF [facility] Specimen Urine - URINE, CLEAN CATCH Performing Organization Address City/[facility] Phone Number [facility] CLIA: [id number] [place], [place] [id number] [address] [place] [address] GALV/CLC ONLY - URINE DRUG (IMMUNOASSAY) - COMPREHENSIVE DRUG SCREEN (08/24/2020 4:20 AM DONOR CENTER TECHNICIAN) AMPHET Presumptive Negative [facility] Positive (A) SERVICES KAIT U Negative Negative [facility] BENZO U Negative Negative [facility] Cocaine Metabolite Presumptive Negative [facility] Positive (A) SERVICES METHADONE Negative Negative [facility] OPIATES Negative Negative [facility] PCP Negative Negative [facility] THC Negative Negative [facility] SERVICES Specimen Urine - URINE, CLEAN CATCH Narrative Performed At Urine Drug Cutoff Ranges [facility] Cocaine: 150 ng/mL Benzodiazepines: 200 ng/mL Methadone: 300 ng/mL Amphetamine: 1,000 ng/mL Opiates: 300 ng/mL Cannabinoids: 50 ng/mL Phencyclidine: 25 ng/mL Barbiturates: 200 ng/mL The results are to be used only for medical (i.e., treatment) purposes. Unconfirmed screening results mus t not be used for non-medical purposes (e.g., employment adina ting, legal testing). Performing Organization Address City/[facility] Phone Number [facility] CLIA: [id number] [place] [id number] 301 [facility] T. PALLIDUM PARTICLE AGG (08/24/2020 4:03 AM DONOR CENTER TECHNICIAN) T. pallidum Particle Reactive (A) Nonreactive [facility] Agglutination SERVICES Specimen Blood - ARM, LEFT Narrative Performed At Based on IgG/IgM, RPR, and TPPA results, probable acti ve T. [facility] pallidum infection. Performing Organization Address City/[facility] Phone Number [facility] CLIA: [id number] [place] [address] [place] [address] RPR (QUANTITATIVE) (08/24/2020 4:03 AM DONOR CENTER TECHNICIAN) Pathologist Sig nature RPR (Quantitative) 1:1 (A) Nonreactive [facility] SERVIC ES Specimen Blood - ARM, LEFT Performing Organization Address [facility] Phone Number [facility] CLIA: [id number] [place] [address] [place] [address] OSMOLALITY SERUM (08/24/2020 4:03 AM DONOR CENTER TECHNICIAN) Pathologist Sig nature OSMOLALITY 298 278 - 305 mOsm/kg [facility] SERVICE S Specimen Blood - HAND, LEFT Performing Organization Address [facility] Phone Number [facility] CLIA: [id number] [place] [address] [place] [address] C-REACTIVE PROTEIN (08/24/2020 4:03 AM DONOR CENTER TECHNICIAN) Pathologist Sig nature CRP 0.2 <0.8 mg/dL [facility] Specimen Blood - HAND, LEFT Performing Organization Address [facility] Phone Number [facility] CLIA: [id number] [place] [address] [place] [address] PHOSPHORUS (08/24/2020 4:03 AM DONOR CENTER TECHNICIAN) Pathologist Sig nature PHOSPHORUS 3.2 2.5 - 5.0 mg/dL [facility] Specimen Blood - HAND, LEFT Performing Organization Address [facility] Phone Number [facility] CLIA: [id number] [place] [address] [place] [address] VITAMIN D, 25-OH (08/24/2020 4:03 AM DONOR CENTER TECHNICIAN) Pathologist Sig [facility] VIT D 25OH 19 (L) 25 - 80 ng/mL [facility] Specimen Blood - HAND, LEFT Narrative Performed At Deficiency: <20 ng/mL [facility] Insufficiency: 20-24 ng/mL Optimal: 25-80 ng/mL Performing Organization Address [facility] Phone Number [facility] CLIA: [id number] [place] [address] [place] [address] THYROID STIMULATING HORMONE (08/24/2020 4:03 AM DONOR CENTER TECHNICIAN) Pathologist Sig [facility] TSH 1.14 0.45 - 4.70 mIU/L [facility]ICE S Specimen Blood - HAND, LEFT Performing Organization Address [facility] Phone Number [facility] CLIA: [id number] [place] [address] [place] [address] GALV ONLY - SYPHILIS IGG/IGM (08/24/2020 4:03 AM DONOR CENTER TECHNICIAN) Pathologist [facility] Syphilis IgG/IgM Reactive (A) Non-reactive [facility] Specimen Blood - ARM, LEFT Narrative Performed At [facility] Non-reactive - No serologic evidence of T. pallidum infection. Cannot exclude incubating or early syphilis . Submit a second specimen in 2-4 weeks if syphilis is clinically suspected. Equivocal - Further testing to follow. Reactive - Further testing to follow. Performing Organization Address [facility] Phone Number [facility] CLIA: [id number] [place] [address] [place] [address] PREALBUMIN (08/24/2020 4:03 AM DONOR CENTER TECHNICIAN) Pathologist Sig [facility] PALB 16.2 (L) 18.0 - 45.0 mg/dL [facility] S Specimen Blood - HAND, LEFT Performing Organization Address City/[facility] Phone Number [facility] CLIA: [id number] [place] [address] [place] [address] VITAMIN B12, LEVEL (08/24/2020 4:03 AM DONOR CENTER TECHNICIAN) Pathologist Sig [facility] VIT B12 474 240 - 930 pg/mL [facility] Specimen Blood - HAND, LEFT Narrative Performed At Biotin has been reported to cause a positive bias, int erpret [facility] results relative to patient's use of biotin. Performing Organization Address City/[facility]/Zipcode Phone Number [facility] CLIA: [id number] [place] [address] [phone] 301 [facility] FOLATE (08/24/2020 4:03 AM DONOR CENTER TECHNICIAN) Pathologist Sig nature FOLATE SER 4.3 3.0 - 20.0 ng/mL [facility] Specimen Blood - HAND, LEFT Performing Organization Address [facility] Phone Number [facility] CLIA: [id number] [place] [address] [place] [address] FERRITIN SERUM (08/24/2020 4:03 AM DONOR CENTER TECHNICIAN) Pathologist Sig nature FERRITIN 183.0 18.0 - 464.0 ng/mL [facility] ES Specimen Blood - HAND, LEFT Narrative Performed At Biotin has been reported to cause a negative bias, int erpret [facility] results relative to patient's use of biotin. Performing Organization Address [facility] Phone Number [facility] CLIA: [id number] [place] [address] [place] [address] IRON PANEL (08/24/2020 4:03 AM DONOR CENTER TECHNICIAN) Pathologist Sig nature IRON 108 50 - 160 ug/dL [facility] TIBC 203 (L) 250 - 410 ug/dL [facility] % FE SAT 53 (H) 20 - 50 % [facility] Specimen Blood - HAND, LEFT Performing Organization Address [facility] Phone Number [facility] CLIA: [id number] [place] [address] [phone] 301 [facility] MAGNESIUM (08/24/2020 4:03 AM DONOR CENTER TECHNICIAN) Pathologist Sig nature MAGNESIUM 2.1 1.7 - 2.4 mg/dL [facility] Specimen Blood - HAND, LEFT Performing Organization Address [facility] Phone Number [facility] CLIA: [id number] [place] [address] [phone] 301 [facility] BASIC METABOLIC PANEL (NA, K, CL, CO2, GLUCOSE, BUN, CREATININE, CA) (08/24/2020 4:03 AM DONOR CENTER TECHNICIAN) NA 144 135 - 145 [facility] mmol/L SERVICES K 2.0 (LL) 3.5 - 5.0 [facility] mmol/L SERVICES CL 105 98 - 108 mmol/L [facility] CO2 TOTAL 33 (H) 23 - 31 mmol/L [facility] AGAP 6 2 - 16 [facility] BUN 11 7 - 23 mg/dL [facility] GLUCOSE 74 70 - 110 mg/dL [facility] CREATININE 0.97 0.60 - 1.25 [facility] mg/dL SERVICES CALCIUM 8.2 (L) 8.6 - 10.6 [facility] mg/dL SERVICES eGFR Calculation 87.6 mL/min/1.73m2 [facility] (Non- SERVICES Citizen Of [place]) eGFR Calculation 106.1 mL/min/1.73m2 [facility] () SERVICES Specimen Blood - HAND, LEFT Narrative Performed At Association of Glomerular Filtration Rate (GFR) and St aging [facility] of Kidney Disease* + + +------- ------ + | GFR (mL/min/1.73 m2) | With Kidney Damage | [facility] Kidney Damage + + +------- ------ + | >90 | Stage one | Normal + + +------- ------ + | 60-89 | Stage two | Decreased GFR + + +------- ------ + | 30-59 | Stage three | Stage three + + +------- ------ + | 15-29 | Stage four | Stage four + + +------- ------ + | <15 (or dialysis) | Stage five | Stage five + + +------- ------ + *Each stage assumes the associated GFR level has been in effect for at least three months. Stages 1 to 5, wit h or without kidney disease, indicate chronic kidney disease. Notes: Determination of stages one and two (with eGFR >59mL/min/1.73 m2) requires estimation of kidney damag e for at least three months as defined by structural or func tional abnormalities of the kidney, manifested by either: Pathological abnormalities or Markers of kidney damage (including abnormalities in the composition of the blo od or urine or abnormalities in imaging tests) . Performing Organization Address City/State/Zipcode Phone Number [facility] CLIA: [id number] [place] [id number] [address] [place] [address] HEPATITIS B CORE ANTIBODY IGM (08/24/2020 4:03 AM DONOR CENTER TECHNICIAN) Pathologist Sig nature HBCM Negative [facility] HBCM Semi-Quantitative 0.12 [facility] Specimen Blood - HAND, LEFT Narrative Performed At Biotin has been reported to cause a negative bias, int erpret [facility] results relative to patient's use of biotin. Performing Organization Address City/State/Zipcode Phone Number [facility] CLIA: [id number] [place] [address] [place] [address] HEPATITIS B SURFACE ANTIBODY (08/24/2020 4:03 AM DONOR CENTER TECHNICIAN) Pathologist Sig nature HBsAB Indeterminate [facility] HBsAb 9.80 mIU/mL [facility] Semi-Quantitative SERVICES Specimen Blood - HAND, LEFT Narrative Performed At Unable to determine if antibody to Hepatitis B Surface [facility] Antigen is present at levels consistent with immunity. Patient's immune status should be assessed with othe r clinical information and/or retesting in 4-6 weeks as clinically indicated. If any questions, please [facility] Clinical Chemistry Director technical solutions director at . Unable to determine if antibody to Hepatitis B Surface Antigen is present at levels consistent with immunity. Patient's immune status should be assessed with othe r clinical information and/or retesting in 4-6 weeks as clinically indicated. If any questions, please [facility] Clinical Chemistry Director technical solutions director at . Interpretation: Hepatitis B Surface An tibody Negative - Patient is considered to be not immu ne to infection with HBV. Positive - Anti-HBs detected at greater than or equal to 12 mIU/mL. Patient is considered to be immune to infection with HBV. Performing Organization Address City/State/Zipcode Phone Number [facility] CLIA: [id number] [place] [address] [phone] 301 [facility] HEPATITIS B SURFACE ANTIGEN (08/24/2020 4:03 AM DONOR CENTER TECHNICIAN) Pathologist Sig nature HBsAg Negative Negative [facility] HBsAg 0.08 [facility] Semi-Quantitative SERVICES Specimen Blood - HAND, LEFT Performing Organization Address City/[facility]/Zipcode Phone Number [facility] CLIA: [id number] [place] [address] [place] [address] HCV ANTIBODY (08/24/2020 4:03 AM DONOR CENTER TECHNICIAN) Pathologist Sig nature HCV Ab Negative [facility] HCV Semi-Quantitative 0.03 [facility] Specimen Blood - HAND, LEFT Performing Organization Address City/State/Zipcode Phone Number [facility] CLIA: [id number] [place] [address] [place] [address] HIV 1/2 AG-AB WITH REFLEX (08/24/2020 4:03 AM DONOR CENTER TECHNICIAN) Pathologist Sig nature HIV 1/2 Ag-Ab with Negative Negative [facility] Reflex SERVICES HIV Semi-quantitative 0.09 [facility] Specimen Blood - HAND, LEFT Narrative Performed At Non-reactive for HIV-1 antigen and HIV-1/HIV-2 antibod ies. [facility] No laboratory evidence of HIV infection. Repeat in 2-4 weeks if acute HIV infection is suspected. Performing Organization Address City/[facility] Phone Number [facility] CLIA: [id number] [place] [address] [place] [address] CT thorax with contrast (08/23/2020 9:14 PM CDT) Specimen Impressions Performed At PACS/VR/DOSE 1. Marked distention of the esophagus measuring up t o 3.8 cm in transverse diameter with air-fluid level. The findings are nonspe cific but suggestive of achalasia. Focal narrowing at the GE junction is suspected on 4:55. Correlation with clinical history is recommended; alte rnatively, esophageal barium study or endoscopy can be obtained nonemergentl y to further assess. 2. Bilateral solid nodules measuring 6 mm in the left lower and right middle lobes. If the patient is in high- risk category (family history of lung cancer, history of smoking) an opti onal CT can be considered in 12 months to document stability. 3. Focal tree-in-bud nodularity of right middle lobe , nonspecific and may represent an underlying evolving infecti ous/inflammatory process. The findings of this study, including achalasia, have been discussed with and acknowledged by KASIA Lott over the phone on 08/23 at 9:50 PM with readback. Preliminary Report Dictated by Resident: Jayy Manzo I, Sienna Mcmanus MD., have reviewe d this study and agree with the above report. Narrative Performed At CT THORAX W CONTRAST PACS/VR/DOSE HISTORY: 35 years-old; Male; Chest pain or SOB, pleurisy or effusion suspected dysphagia, weight loss, vomiti ng, globus sensation COMPARISON: None TECHNIQUE: Helical CT was performed of the chest (michael ng apices to bases) using 120 mL Omnipaque-350 nonionic intr avenous contrast, without complications. Images were reconstructed at 1.0 slice thickness. Axial MIPs and coronal and sagittal MPR images were generated and reviewed. DFOV = 31 cm. FINDINGS: Lower neck/thyroid: Unremarkable. Lungs: Multiple pleural-based lung nodules are noted i n the left lower lobe measuring up to 7 mm (14:46). Solid pulmonary nodules are also seen in the left lower lobe measuring 6 mm (14:44) and right middl e lobe measuring 6 cm (14:59). Focus of tree-in-bud nodularity is noted in t he superior segment of right middle lobe (14:75). Central airway: Unremarkable. Pleura: No pleural effusion, thickening or pneumothorax. Thoracic aorta and great vessels: The normal three ves david branching pattern is identified off of the aortic arch. Th e aorta is normal in diameter. Pulmonary arteries: Normal in caliber. Heart and pericardium: No detectable coronary arterial calcifications are present. Dilated left ventricle. Lymph nodes: No enlarged thoracic lymph nodes. Mediastinum: Diffuse distention of fluid -filled esophagus is noted measuring up to 5.8 cm in transverse felice meter in the mid segment with air-fluid level. No distinguishable or n odular thickening is identified. Areas of layering calcification are seen along the posterior wall of the esophagus more distally. Thoracic spine and chest wall: No aggressive osseous l esion is identified. Other Lines/Tubes/Devices/Hardware: None Visualized upper abdomen: Abnormal reflu x of contrast is noted into the hepatic IVC and hepatic veins. Procedure Note [facility], Radiant Results Inft User - 2019 10:[address] THORAX W CONTRAST HISTORY: 35 years-old; Male; Chest pain or SOB, pleurisy or effusion suspected dysphagia, weight loss, vomiti ng, globus sensation COMPARISON: None TECHNIQUE: Helical CT was performed of the chest (lung apices to bases) using 120 mL Omnipaque-350 nonionic intr avenous contrast, without complications. Images were reconstructed at 1.0 slice thickness. Axial MIPs and coronal and sagittal MPR images were generated and reviewed. DFOV = 31 cm. FINDINGS: Lower neck/thyroid: Unremarkable. Lungs: Multiple pleural-based lung nodul es are noted in the left lower lobe measuring up to 7 mm (14:46). Solid pulm onary nodules are also seen in the left lower lobe measuring 6 mm (14:44) a nd right middle lobe measuring 6 cm (14:59). Focus of tree-in-bud nodularity is noted in the superior segment of right middle lobe (14:75). Central airway: Unremarkable. Pleura: No pleural effusion, thickening or pneumothorax. Thoracic aorta and great vessels: The no rmal three vessel branching pattern is identified off of the aortic arch. Th e aorta is normal in diameter. Pulmonary arteries: Normal in caliber. Heart and pericardium: No detectable cor onary arterial calcifications are present. Dilated left ventricle. Lymph nodes: No enlarged thoracic lymph nodes. Mediastinum: Diffuse distention of fluid -filled esophagus is noted measuring up to 5.8 cm in transverse felice meter in the mid segment with air-fluid level. No distinguishable or n odular thickening is identified. Areas of layering calcification are seen along the posterior wall of the esophagus more distally. Thoracic spine and chest wall: No aggres sive osseous lesion is identified. Other Lines/Tubes/Devices/Hardware: None Visualized upper abdomen: Abnormal reflu x of contrast is noted into the hepatic IVC and hepatic veins. IMPRESSION 1. Marked distention of the esophagus m easuring up to 3.8 cm in transverse diameter with air-fluid level. The findi ngs are nonspecific but suggestive of achalasia. Focal narrowing at the GE junction is suspected on 4:55. Correlation with clinical history is rec ommended; alternatively, esophageal barium study or endoscopy can be obtaine d nonemergently to further assess. 2. Bilateral solid nodules measuring 6 mm in the left lower and right middle lobes. If the patient is in high- risk category (family history of lung cancer, history of smoking) an opti onal CT can be considered in 12 months to document stability. 3. Focal tree-in-bud nodularity of righ t middle lobe, nonspecific and may represent an underlying evolving infecti ous/inflammatory process. The findings of this study, including ac halasia, have been discussed with and acknowledged by KASIA Lott over the phone on 08/23/2020 at 9:50 PM with readback. Preliminary Report Dictated by Resident: Sienna Kimball MD., have reviewed this study and agree with the above report. Performing Organization Address City/State/Zipcode Phone Number PACS/VR/DOSE CT ABDOMEN PELVIS W CONTRAST (08/23/2020 9:14 PM CDT) Specimen Impressions Performed At PACS/VR/DOSE 1. Abnormally distended distal thoracic esophagus by pneumatized content is seen. This can be observed with achal krzysztof or gastroesophageal stricture/narrowing. Clinical correlatio n is recommended. 2. Large bowel containing right inguinal hernia. No signs suggestive of bowel obstruction. Nonspecific segmental mural thicken ing and enhancement of the small bowel loop in the left mid abdomen is noted. 3. Questionable hypoattenuation in the right paracol onic gutter suggestive of trace volume ascites. Preliminary Report Dictated by Resident: Sienna Velazquez MD., have reviewe d this study and agree with the above report. Narrative Performed At EXAM: CT ABDOMEN AND PELVIS WITH CONTRAS T PACS/VR/DOSE HISTORY: C/O N/V and abdominal pain x 2 months with weakness. ?States "I have?lost 45 pounds in 2 months". States "I haven't had a BM in 3 weeks". COMPARISON: None. TECHNIQUE AND FINDINGS: Contiguous axial imaging from the level of the lung bases through the proximal thighs was performed after the administration of intravenous Omnipaque contrast. Coronal and sagittal r econstructions were obtained. Auto mA and/or iterative rec onstruction were used to reduce radiation dose. FINDINGS: Limited evaluation of the abdominal pelv ic organs due to paucity of intra-abdominopelvic fat. LOWER THORAX: Please refer to concurrently obtained bu t separately dictated CT chest for thoracic findings. Signific antly distended distal thoracic esophagus by pneumatized content. LIVER: Heterogenous appearance of the he patic parenchyma is seen, likely perfusional. Normal contour. Nonspecific mild periportal edema. GALLBLADDER AND BILIARY TREE: No biliary ductal dilati on. No gallbladder wall thickening. SPLEEN: No splenomegaly. A 1.3 cm splenu le is seen (602:50). PANCREAS: No ductal dilation or masses. ADRENAL GLANDS: No adrenal nodules. KIDNEYS: No hydronephrosis, stones, or m asses. PERITONEUM AND RETROPERITONEUM: No free air . Trace volume of intraperitoneal fat fluid is suggested about the right paracolonic gutter (602:69). Large right inguinal hernia co ntaining small bowel loops. LYMPH NODES: No lymphadenopathy. GI TRACT: Abnormally thickened small bow el loop is seen in the left midabdomen (602:67) PELVIS/BLADDER: Unremarkable. VESSELS: Unremarkable. BONES AND SOFT TISSUES: No suspicious ly tic or sclerotic bony lesions. Procedure Note [facility], Radiant Results Inft User - 2019 9:55 PM CDT EXAM: CT ABDOMEN AND PELVIS WITH CONTRAST HISTORY: C/O N/V and abdominal pain x 2 months with weakness. ?States "I have?lost 45 pounds in 2 months". States "I haven't had a BM in 3 weeks". COMPARISON: None. TECHNIQUE AND FINDINGS: Contiguous axial imaging from the level of the lung bases through the proximal thighs was pe rformed after the administration of intravenous Omnipaque contrast. Coronal and sagittal reconstructions were obtained. Auto mA and/or iterative charan nstruction were used to reduce radiation dose. FINDINGS: Limited evaluation of the abdominal pelv ic organs due to paucity of intra-abdominopelvic fat. LOWER THORAX: Please refer to concurrent ly obtained but separately dictated CT chest for thoracic findings. Signific antly distended distal thoracic esophagus by pneumatized content. LIVER: Heterogenous appearance of the he patic parenchyma is seen, likely perfusional. Normal contour. Nonspecific mild periportal edema. GALLBLADDER AND BILIARY TREE: No biliary ductal dilation. No gallbladder wall thickening. SPLEEN: No splenomegaly. A 1.3 cm splenu le is seen (602:50). PANCREAS: No ductal dilation or masses. ADRENAL GLANDS: No adrenal nodules. KIDNEYS: No hydronephrosis, stones, or m asses. PERITONEUM AND RETROPERITONEUM: No free air . Trace volume of intraperitoneal fat fluid is suggested a bout the right paracolonic gutter (602:69). Large right inguinal hernia co ntaining small bowel loops. LYMPH NODES: No lymphadenopathy. GI TRACT: Abnormally thickened small bow el loop is seen in the left midabdomen (602:67) PELVIS/BLADDER: Unremarkable. VESSELS: Unremarkable. BONES AND SOFT TISSUES: No suspicious ly tic or sclerotic bony lesions. IMPRESSION 1. Abnormally distended distal thoracic esophagus by pneumatized content is seen. This can be observed with achal krzysztof or gastroesophageal stricture/narrowing. Clinical correlatio n is recommended. 2. Large bowel containing right inguina l hernia. No signs suggestive of bowel obstruction. Nonspecific segmental mural thickening and enhancement of the small bowel loop in the left mid abdomen is noted. 3. Questionable hypoattenuation in the right paracolonic gutter suggestive of trace volume ascites. Preliminary Report Dictated by Resident: Saman Vasquez I, Sienna Mcmanus MD., have reviewed this study and agree with the above report. Performing Organization Address [facility] Phone Number PACS/VR/DOSE MAGNESIUM (08/23/2020 7:52 PM CDT) Pathologist Sig nature MAGNESIUM 2.4Comment: Slight 1.7 - 2.4 mg/dL [facility] LABORATORY Specimen Blood - VENOUS Performing Organization Address [facility] Phone Number [facility] CLIA: [id number] [place] [address] Troponin I (08/23/2020 7:52 PM CDT) Pathologist Sig nature TROPONIN I 0.014 <=0.034 ng/mL [facility] Specimen Blood - VENOUS Narrative Performed At Equal or Less than 0.034 ng/ml---Normal [facility] Note: Cardiac troponin begins to rise 3-4 hours after the onset of ischemia. Repeat in 4-6 hours if the sample was drawn within 3-4 hours of the onset of the symptom and found normal. Between 0.035 and 0.120 ng/mL--- Borderline. Questionable myocardial injury or necros is Note: Serial measurement may be necessary to confirm or exclude the diagnosis of myocardial injury or necrosis; Clinical correlation (symptoms, EKGs, imaging studies, and others) required; Repeat in 4-6 hours if clinically indicated. Equal or Higher than 0.121 ng/mL---Abnormal. Myocardial Injury or Necrosis Likely Biotin has been reported to cause a negative bias, interpret results relative to patient's use of biotin. Performing Organization Address [facility] [employer] Phone Number [facility] CLIA: [id number] [place] [address] LABORATORY [address] [facility] Lipase Serum (08/23/2020 7:52 PM CDT) Pathologist Sig nature LIPASE 248 (H) 0 - 220 U/L [facility] Specimen Blood - VENOUS Performing Organization Address [facility] Phone Number [facility] CLIA: [id number] [place] [address] LABORATORY [address] [facility] Hepatic Function Panel (ALB, T.PRO, BILI T, BU/BC, ALT, AST, ALK PHOS) (08/23/2020 7:52 PM CDT) Pathologist Sig nature TOTAL BILI 0.9 0.1 - 1.1 mg/dL [facility] BILI UNCON 0.7 0.1 - 1.1 mg/dL [facility] BILI CONJ 0.0 0.0 - 0.3 mg/dL [facility] T PROTEIN 6.8 6.3 - 8.2 g/dL [facility] ALBUMIN 3.2 (L) 3.5 - 5.0 g/dL [facility] ALK PHOS 55 34 - 122 U/L [facility] ALTv 32 5 - 50 U/L [facility] AST(SGOT) 48 (H) 13 - 40 U/L [facility] Specimen Blood - VENOUS Performing Organization Address [facility] Phone Number [facility] CLIA: [id number] [place] [address] [place] [address] Basic Metabolic Panel (NA, K, CL, CO2, GLUCOSE, BUN, CREATININE, CA) (08/23/2020 7:52 PM CDT) NA 142 135 - 145 [facility] mmol/L [facility] K 2.1 (LL) 3.5 - 5.0 [facility] mmol/L [facility] CL 104 98 - 108 mmol/L [facility] CO2 TOTAL 35 (H) 23 - 31 mmol/L [facility] AGAP 3 2 - 16 [facility] BUN 13 7 - 23 mg/dL [facility] GLUCOSE 73 70 - 110 mg/dL [facility] CREATININE 0.95 0.60 - 1.25 [facility] mg/dL [facility] CALCIUM 8.7 8.6 - 10.6 [facility] mg/dL [facility] eGFR Calculation 89.7 mL/min/1.73m2 [facility] (Non-[facility] LABORATORY Citizen [place]) eGFR Calculation 108.7 mL/min/1.73m2 [facility] () [facility] Specimen Blood - VENOUS Narrative Performed At [facility] [place] [facility] Glomerular Filtration Rate (GFR) [facility] and Staging of Kidney Disease* + + +- + | GFR (mL/min/1.73 m2) | With Kidney Damage | Without Kidney Damage + + +- + | >90 | Stage one | Normal + + +- + | 60-89 | Stage two | Decreased GFR + + +- + | 30-59 | Stage three | Stage three + + +- + | 15-29 | Stage four | Stage four + + +- + | <15 (or dialysis) | Stage five | Stage five + + +- + *Each stage assumes the associated GFR level has been in effect for at least three months. Stages 1 to 5, with or without kidney disease, indicate chronic kidney disease. Notes: Determination of stages one and two (with eGFR >59mL/min/1.73 m2) requires estimation of kidney damage for at least three months as defined by structural or functional abnormalities of the kidney, manifested by either: Pathological abnormalities or Markers of kidney damage (including abnormalities in the composition of the blood or urine or abnormalities in imaging tests). Performing Organization Address City/State/Zipcode Phone Number [facility] CLIA: [id number] [place] [address] CBC with Differential (08/23/2020 7:52 PM CDT) [facility] WBC 6.36 4.20 - 10.70 [facility] 10*3/L [facility] RBC 3.85 (L) 4.26 - 5.52 [facility] 10*6/L [facility] HGB 11.1 (L) 12.2 - 16.4 [facility] g/dL [facility] HCT 33.4 (L) 38.4 - 49.3 % [facility] MCV 86.8 81.7 - 95.6 fL [facility] MCH 28.8 26.1 - 32.7 pg [facility] MCHC 33.2 31.2 - 35.0 [facility] g/dL [facility] RDW-SD 45.6 38.5 - 51.6 fL [facility] RDW-CV 14.4 12.1 - 15.4 % [facility] PLT 201 150 - 328 [facility] 10*3/L [facility] MPV 11.5 9.8 - 13.0 fL [facility] NRBC/100 WBC 0.0 0.0 - 10.0 /100 [facility] WBCs [facility] NRBC x10^3 <0.01 10*3/L [facility] GRAN MAT (NEUT) % 49.9 % [facility] IMM GRAN % 0.30 % [facility] LYMPH % 43.2 % [facility] MONO % 6.1 % [facility] EOS % 0.3 % [facility] BASO % 0.2 % [facility] GRAN MAT x10^3(ANC) 3.17 1.99 - 6.95 [facility] 10*3/uL [facility] IMM GRAN x10^3 <0.03 0.00 - 0.06 [facility] 10*3/uL [facility] LYMPH x10^3 2.75 1.09 - 3.23 [facility] 10*3/uL [facility] MONO x10^3 0.39 0.36 - 1.02 [facility] 10*3/uL [facility] EOS x10^3 <0.03 (L) 0.06 - 0.53 [facility] 10*3/uL [facility] BASO x10^3 <0.03 0.01 - 0.09 [facility] 10*3/uL [facility] Specimen Blood - VENOUS Performing Organization Address City/State/Zipcode Phone Number [facility] CLIA: [id number] [place] [address] LAB ONLY COVID INTERPRETATION (08/23/2020 7:11 PM CDT) [facility] COVID DMT Interpretation/Recommendations: [facility] Interpretation SERVICES Tests (PCR) for Active Infection by SARS-CoV-2 Virus: This result indicates that t he patient has been tested negative for the SARS-CoV-2 virus on one occasion. The most likely interpretation, for approximately two-thirds of patients with a negative test, i s that the patient is truly negative and has not been infected with the SARS-CoV-2 virus. However, for those tested using a nasopharyngeal sample, there is approximately a tib-sk-ilbfg chance that the p atient was infected and the result of the first test is a "false" negative. This occurs because the virus is predominantly in the lung and out of reach of the nasopharyngeal swab. If the patient becomes progressively more symptomatic, a repeat PCR test kyung uld be performed. Tests for IgM and/or IgG Antibodies to SARS-CoV-2 Viru s: A. A test for IgM antibody t o the SARS-CoV-2 virus is likely to be highly informative at this time. IgM antibodies to the SARS-CoV-2 virus identified in a high performing test, usually an JEREMIAH or chemi luminescence-based assay, sh ould appear in most patients who are truly infected within approximately a week from the onset of symptoms, and in nearly all patients 2 to 3 weeks after symptoms begin. If t he high performing IgM test is positive, even if the initial PCR test for active infection was negative, it is highly probable the patient has been infected with the virus at some point. A repeat PCR te st to determine if the patie nt has recovered from the infection would be important to perform if the IgM zmex-YVRS-YmC-2 antibody test is positive. B. A test for IgG antibodies to the SARS-CoV-2 virus was not performed and is also likely to be informative. The sample for the IgG antibody test should be collected 2 or more weeks post onset of sympto ms. It is the IgG antibodies that can confer long-term immunity to infectious agents. However, at this time, it is not known if the production of IgG antibodies indicates whether the patient is immune t o future infections with the SARS-CoV-2 virus. It is also not known how long IgG antibodies to the SARS-CoV-2 virus persist. C. Although it is uncommon, some patients cannot ever mount an antibody response to infectious agents, such as SARS-CoV-2. If there are persistently negative results for IgM and IgG antibodies, this may be the explanation. Interpretation Result Comments: These interpretation comment s are based upon aggregate data pooled from the [facility] medical record including both current and prior COVID-19 related testing results for the following tests offered at our institution: A. Tests for the Identification of SARS-CoV-2 RNA: SARS-CoV-2 PCR assays includ ing PredPol Aptima, Underwood Fusion, Sanders RealTime, and [id number] Xpert Xpress. SARS-CoV-2 Rapid ID NOW by the ID NOW assay. B. Tests for the Identification of SARS-CoV-2 Antibodi es: Chemiluminescent immunoassay s including Cinnamon SARS-CoV-2 IgM (DXI 600), FlaconiS Qqxb-VJUI-NvN-2 IgG (Vitros 5600 and Vitros 3600), and Sanders SARS-CoV-2 IgG (MAGNETIC PROSPECTING SUPERVISOR I System). These interpretation comment s assume that only the above testing was utilized and that the approved acceptable specimen type(s) were used for a given test. These interpretations are au topopulated into [facility] based on computerized algorithms matching an interpretation code number to the patient's set of test results. While a clinical pathologist evaluates the combinations for clinical a ccuracy, clinical correlation is recommended as it may not take into account very remote prior testing. Furthermore, it does not consider testing a patient may have had outside of the [facility] system. Additionally, it should be n oted that the computerized algorithm treats the results for PCR testing and Rapid ID NOW testing (also PCR) synonymously, and thus, refers to both testing methodologies as PC R tests. Given that the sens itivity of [facility]'s Rapid ID NOW testing platform is analogous to PCR-based methods, for most patients this has no significant implications for clinical decision making. Howeve r, if a patient with a negat maria del rosario result for Rapid ID NOW continues to have a clinical presentation consistent with COVID-19 infection, negative results should be treated as presumptive negative and a new specimen should be tested with alternative PCR molecu lar test. If results for COVID-19 infe ction continue to be negative in the context of a clinical presentation consistent with a viral respiratory illness, it is possible the patient may have an infection with ano ther respiratory virus, such as influenza, rhinovirus, other coronaviruses that cause the common cold, etc. Influenza testing and if clinically indicated a respiratory pathogen panel may be beneficial in this setting. COVID Results SARS-CoV-2 Rapid ID NOW (no units) [facility] Date Value SERVICES 08/23/2020 Not Detected Specimen Swab - NASOPHARYNGEAL SWAB Performing Organization Address City/[facility]/Zipcode Phone Number [facility] CLIA: [id number] [place] [address] [place] [address] COVID-19 (ID NOW RAPID TESTING) (08/23/2020 7:11 PM CDT) Pathologist [facility] SARS-CoV-2 Rapid ID Not Detected Not Detected [facility] Specimen Swab - NASOPHARYNGEAL SWAB Narrative Performed At MD NOW COVID-19 Assay is an isothermal nucleic [facility] acid amplification test intended for the qualitative detection of nucleic acid from SARS-CoV-2 viral RNA in nasopharyngeal (FISHERIES MANAGER) specimens. It is used under Emergency Use Authorization (EUA) by FDA. The limit of detection (LOD) of the assay is 125 Genome Equivalents/mL. A positive result is indicative of the presence of SARS-CoV-2 RNA. Clinical correlation with patient history and other diagnostic information is necessary to determine patient infection status. A negative (Not Detected) result does not preclude SARS-CoV-2 infection. In patients with clinical symptoms and other tests that are consistent with SARS-CoV-2 infection, negative results should be treated as presumptive negative and a new specimen should be tested with alternative PCR molecular test. Invalid: Please collect a new specimen for repeat patient testing if clinically indicated. Performing Organization Address [facility] Phone Number [facility] CLIA: [id number] [place] [address] Chest 1 View (08/23/2020 6:55 PM CDT) Specimen Impressions Performed At PACS/VR/DOSE No acute cardiopulmonary abnormality. Bilateral humeral osteochondroma. Preliminary Report Dictated by Resident: Sienna Castro MD., have reviewe d this study and agree with the above report. Narrative Performed At EXAM: PACS/VR/DOSE XR CHEST 1 VW HISTORY: 35 years-old; Male; malaise COMPARISON: None FINDINGS: Lungs/Pleura: The lungs are clear with no focal consol idation. There is no pleural effusion or pneumothorax. Heart/Mediastinum: The cardiomediastinal silhouette is normal. No acute osseous structure abnormality. Bilaterally humeral pedunculated outgrowth arising from the proximal metadiaphysis whic h is contiguous with the medullary cavity. Procedure Note [facility], Radiant Results Inft User - 2019 7:30 PM CDT EXAM: XR CHEST 1 VW HISTORY: 35 years-old; Male; malaise COMPARISON: None FINDINGS: Lungs/Pleura: The lungs are clear with n o focal consolidation. There is no pleural effusion or pneumothorax. Heart/Mediastinum: The cardiomediastinal silhouette is normal. No acute osseous structure abnormality. Bilaterally humeral pedunculated outgrowth arising from the proximal meta diaphysis which is contiguous with the medullary cavity. IMPRESSION No acute cardiopulmonary abnormality. Bilateral humeral osteochondroma. Preliminary Report Dictated by Resident: Sienna Castro MD., have reviewed this study and agree with the above report. Performing Organization Address City/State/Zipcode Phone Number PACS/VR/DOSE documented in this encounter Visit Diagnoses Diagnosis Esophageal dysphagia - Primary Dysphagia, pharyngoesophageal phase Generalized abdominal pain Abdominal pain, generalized Vomiting, intractability of vomiting not specified, presence of nausea not specified, unspecified vomiting type Globus sensation Gastrointestinal malfunction arising fro m mental factors Weight loss Loss of weight Hypokalemia Hypopotassemia Achalasia of esophagus Achalasia and cardiospasm Dysphagia Dysphagia, unspecified Bipolar 1 disorder Bipolar I disorder, most recent episode (or current) unspecified GERD (gastroesophageal reflux disease) Esophageal reflux E46 Unspecified severe protein-calorie malnutrition documented in this encounter Administered Medications Medication Order MAR Action Action Date Dose Rate Site acetaminophen (TYLENOL) tablet Given 08/28/2020 9:36 AM [facility] TECHNICIAN 650 mg 650 mg 650 mg, Oral, Q6HPRN, Starting Josseline 08/28/20 at 0803, Until Discontinued, Routine, Pain (scale 1-3), Pain (scale 4-6) D5W IV infusion 1,000 mL New Bag 08/29/2020 10:42 AM [facility] TECHNICIAN 1,000 mL 100 mL/hr at 100 mL/hr, IV Infusion, CONTINUOUS, Starting Tue08/27/20 at 0830, Until Discontinued, Routine New Bag 08/29/2020 12:25 AM [facility] C[facility] TECHNICIAN 1,000 mL 100 mL/hr New Bag 08/27/2020 9:46 PM [facility] TECHNICIAN 1,000 mL 100 mL/hr divalproex (DEPAKOTE) EC tablet 750 mg Given 08/30/2020 9:05 AM [facility] TECHNICIAN 750 mg 750 mg, Oral, BID, First dose on Tue08/27/20 at 0800, Until Discontinued, Routine Given 08/29/2020 8:39 PM [facility] TECHNICIAN 750 mg Given 08/29/2020 10:37 AM [facility] TECHNICIAN 750 mg enoxaparin (LOVENOX) injection 40 mg Given 08/28/2020 8:05 AM [facility] TECHNICIAN 40 mg Abdo men-SC 40 mg, Subcutaneous, DAILY, First dose on Tue08/24/20 at 1700, Until Discontinued, Routine Given 08/27/2020 8:03 AM [facility] TECHNICIAN 40 mg Abdo men-SC Given 08/26/2020 9:52 AM [facility] TECHNICIAN 40 mg Abdo men-SC ergocalciferol (vitamin d2) Given 08/27/2020 8:03 AM [facility] TECHNICIAN 50,000 Units (CALCIFEROL) capsule 50,000 Units 50,000 Units, Oral, QWEEKLY, 6 doses, First dose on Tue08/27/20 at 0900, Last dose on Tue10/01/20 at 0900, Routine guanFACINE (TENEX) tablet 1 mg Given 08/30/2020 9:05 AM [facility] TECHNICIAN 1 mg 1 mg, Oral, BID, First dose on Tue08/28/20 at 2000, Until Discontinued Given 08/29/2020 8:39 PM [facility] TECHNICIAN 1 mg Given 08/29/2020 10:38 AM [facility] TECHNICIAN 1 mg LORazepam (ATIVAN) tablet 0.5 mg Given 08/30/2020 9:06 AM [facility] TECHNICIAN 0.5 mg 0.5 mg, Oral, BID, First dose on Tue08/25/20 at 1045, Until Discontinued, Routine Given 08/29/2020 8:39 PM [facility] TECHNICIAN 0.5 mg Given 08/29/2020 10:38 AM [facility] TECHNICIAN 0.5 mg nicotine (NICODERM) 7 mg/24 hr patch 1 Applied 08/29/2020 3:18 PM [facility] TECHNICIAN 1 Patch Patch 1 Patch, Topical, Administer over 24 Hours, Q24H, First dose on Tue08/27/20 at 1215, Until Discontinued, Routine Given 08/28/2020 11:42 AM [facility] TECHNICIAN 1 Patch Righ t Arm Applied 08/27/2020 12:11 PM [facility] TECHNICIAN 1 Patch nitroglycerin (NITROSTAT) sublingual tablet Given 04/2020 12:13 PM [facility] TECHNICIAN 0.4 mg 0.4 mg 0.4 mg, Sublingual, AC, First dose on Tue08/30/20 at 1130, Until Discontinued, Routine pantoprazole (PROTONIX) 2 mg/mL oral Given 08/30/2020 9:[address] 40 mg suspension 40 mg 40 mg, Oral, BID, First dose on Tue08/26/20 at 2345, Until Discontinued, Routine Given 08/29/2020 8:39 PM [facility] TECHNICIAN 40 mg Given 08/29/2020 10:39 AM [facility] TECHNICIAN 40 mg Polyethylene Glycol 3350 (MIRALAX) powde r 17 g 17 g, Oral, BID, First dose on Tue08/30/20 at 0800, Un til Discontinued, Routine SERTraline (ZOLOFT) tablet 200 mg Given 08/30/2020 9:06 AM [facility] TECHNICIAN 200 mg 200 mg, Oral, DAILY, First dose on Tue08/27/20 at 0900, Until Discontinued, Routine Given 08/29/2020 10:38 AM [facility] TECHNICIAN 200 mg Given 08/28/2020 8:05 AM [facility] TECHNICIAN 200 mg ziprasidone (GEODON) capsule 80 mg Given 08/30/2020 9:07 AM [facility] TECHNICIAN 80 mg 80 mg, Oral, BID MEALS, First dose on Tue08/27/20 at 0800, Until Discontinued, Routine Given 08/29/2020 5:42 PM [facility] TECHNICIAN 80 mg Given 08/29/2020 10:39 AM [facility] TECHNICIAN 80 mg Medication Order MAR Action Action Date Dose Rate Site barium sulfate (LIQUID E-Z PAQUE) Given 08/29/2020 2:04 PM [facility] TECHNICIAN 340 g 60 % (w/v) oral suspension 340 g 340 g, Oral, ONCE, 1 dose, Tue08/29/20 at 1415, Routine barium sulfate (LIQUID E-Z PAQUE) 60 % (w/v) Given 03/2020 2:04 PM [facility] TECHNICIAN 50 mL oral suspension 50 mL 50 mL, Oral, ONCE, 1 dose, Tue08/29/20 at 1415, Routine D5W-LR IV infusion 1,000 mL New Bag 08/24/2020 9:34 PM [facility] CENTER TECHNICIAN 1,000 mL 75 mL/hr at 75 mL/hr, IV Infusion, CONTINUOUS, Starting 08/24/20 at 0345, Until 08/25/20 at 0155, Routine New Bag 08/24/2020 3:59 AM [facility] TECHNICIAN 1,000 mL 75 mL/hr D5W-LR IV infusion 1,000 mL New Bag 08/26/2020 12:11 AM [facility] TECHNICIAN 1,000 mL 125 mL/hr at 125 mL/hr, IV Infusion, CONTINUOUS, Starting 08/25/20 at 0200, Until Tu08/26/20 at 0344, Routine New Bag 08/25/2020 11:12 AM [facility] TECHNICIAN 1,000 mL 125 mL/hr New Bag 08/25/2020 3:08 AM [facility] TECHNICIAN 1,000 mL 125 mL/hr famotidine (PEPCID (PF)) injection 20 mg Given 08/23/2020 7:06 PM CDT 20 mg 20 mg, Slow IV Push, ONCE, 1 dose, 08/23/20 at 1900, ROBERTO FENTanyl PF (SUBLIMAZE (PF)) injection 50 Given 08/23/2020 7:05 PM CDT 50 mcg mcg 50 mcg, Slow IV Push, ONCE, 1 dose, 08/23/20 at 1900, STAT flu vaccine 6 months and up Given 08/30/2020 12:23 PM [facility] TECHNICIAN 0.5 mL Left Deltoid-IM (PF) (FLUZONE QUAD (PF)) syringe 0.5 mL 0.5 mL, Intramuscular, ONCE, 1 dose, 08/30/20 at 1200, Routine guanFACINE (TENEX) tablet 1 mg Given 08/27/2020 9:22 PM [facility] TECHNICIAN 1 mg 1 mg, Oral, BID, First dose on Tue08/27/20 at 0800, Until Discontinued, Routine Given 08/27/2020 8:07 AM [facility] TECHNICIAN 1 mg iohexol (OMNIPAQUE 350 BULK-150 mL) Given 08/23/2020 9:00 PM CD T 120 mL injection 120 mL 120 mL, Intravenous, ONCE, 1 dose, 08/23/20 at 2130, Routine KCL (KLOR-CON M20) tablet 40 mEq Given 08/23/2020 8:42 PM CDT 40 mEq 40 mEq, Oral, ONCE, 1 dose, 08/23/20 at 2045, ROBERTO KCL (POTASSIUM CHLORIDE) 40 mEq in D5W New Bag 08/26/2020 2:4 1 PM [facility] TECHNICIAN 75 mL/hr IV Solution IV Infusion, CONTINUOUS, Starting Tue08/26/20 at 1500, Until Tue08/27/20 at 0704, 1,000 mL, at 75 mL/hr KCL (POTASSIUM CHLORIDE) 40 mEq in NaCl 0.9% Given 10/2019 7:17 AM [facility] TECHNICIAN 40 mEq (NS) 100 mL piggyback 40 mEq, IV Piggyback, ONCE, 1 dose, [place] 08/24/20 at 0900, 100 mL KCL (POTASSIUM CHLORIDE) 40 mEq in NaCl 0.9% Given 10/2019 7:28 PM [facility] TECHNICIAN 40 mEq (NS) 100 mL piggyback 40 mEq, IV Piggyback, ONCE, 1 dose, [place] 08/24/20 at 1300, 100 mL KCL (POTASSIUM CHLORIDE) 40 mEq in NaCl 0.9% Given 11/2019 3:03 AM [facility] TECHNICIAN 40 mEq (NS) 100 mL piggyback 40 mEq, IV Piggyback, ONCE, 1 dose, Tue08/25/20 at 0145, 100 mL KCL (POTASSIUM CHLORIDE) 40 mEq in NaCl 0.9% Given 12/2019 7:29 AM [facility] TECHNICIAN 40 mEq (NS) piggyback 40 mEq, IV Piggyback, Q4H, 3 doses, First dose (after last modification) on Tue08/25/20 at 2100, Last dose on Tue08/26/20 at 0400, 250 mL Given 08/26/2020 1:58 AM [facility] TECHNICIAN 40 mEq Given 08/25/2020 9:59 PM [facility] TECHNICIAN 40 mEq KCL (POTASSIUM CHLORIDE) 40 mEq in NaCl 0.9% Given 12/2019 9:15 PM [facility] TECHNICIAN 40 mEq (NS) piggyback 40 mEq, IV Piggyback, Q4H, 3 doses, First dose (after last reorder) on Tue08/26/20 at 1200, Last dose on Tue08/26/20 at 2000, 250 mL Given 08/26/2020 2:16 PM [facility] TECHNICIAN 40 mEq KCL (POTASSIUM CHLORIDE) 40 mEq in NaCl 0.9% Given 02/2020 12:59 AM [facility] TECHNICIAN 40 mEq (NS) piggyback 40 mEq, IV Piggyback, ONCE, 1 dose, [facility] 08/28/20 at 0015, 250 mL KCL (POTASSIUM CHLORIDE) 40 mEq in NaCl 0.9% Given 03/2020 5:43 PM [facility] TECHNICIAN 40 mEq (NS) piggyback 40 mEq, IV Piggyback, Q4H, 3 doses, First dose (after last reorder) on Tue08/29/20 at 0800, Last dose on Tue08/29/20 at 1600, 250 mL Given 08/29/2020 10:43 AM [facility] TECHNICIAN 40 mEq KCL 20 mEq/15 mL solution 40 mEq Given 08/24/2020 8:01 AM [facility] TECHNICIAN 40 mEq 40 mEq, Oral, ONCE NOW, 1 dose, [place] 08/24/20 at 0615, Routine KCL 20 mEq/15 mL solution 40 mEq Given 08/25/2020 4:14 PM [facility] TECHNICIAN 40 mEq 40 mEq, Oral, TID, 3 doses, First dose (after last modification) on Tue08/25/20 at 1400, Last dose on Tue08/26/20 at 0800, Routine KCL 20 mEq/15 mL solution 40 mEq Given 08/25/2020 9:03 PM [facility] TECHNICIAN 40 mEq 40 mEq, Oral, TID, 6 doses, First dose (after last modification) on Tue08/25/20 at 2000, Last dose on Tue08/27/20 at 1400, Routine KCL 20 mEq/15 mL solution 40 mEq Given 08/26/2020 10:14 PM [facility] TECHNICIAN 40 mEq 40 mEq, Oral, Q3H, 4 doses, First dose (after last modification) on Tue08/26/20 at 1100, Last dose on Tue08/26/20 at 2000, Routine Given 08/26/2020 7:18 PM [facility] TECHNICIAN 40 mEq Given 08/26/2020 2:30 PM [facility] TECHNICIAN 40 mEq KCL 20 mEq/15 mL solution 40 mEq Given 08/27/2020 5:48 AM [facility] TECHNICIAN 40 mEq 40 mEq, Oral, ONCE NOW, 1 dose, Tue08/27/20 at 0500, Routine KCL 20 mEq/15 mL solution 40 mEq Given 08/27/2020 5:48 AM [facility] TECHNICIAN 40 mEq 40 mEq, Oral, DAILY, 1 dose, First dose (after last modification) on Tue08/27/20 at 0600, Routine KCL 20 mEq/15 mL solution 40 mEq Given 08/27/2020 6:07 PM [facility] TECHNICIAN 40 mEq 40 mEq, Oral, Q4H, 2 doses, First dose on Tue08/27/20 at 1400, Last dose on Tue08/27/20 at 1600, Routine Given 08/27/2020 2:52 PM [facility] TECHNICIAN 40 mEq KCL 20 mEq/15 mL solution 40 mEq Given 08/28/2020 6:30 AM [facility] TECHNICIAN 40 mEq 40 mEq, Oral, Q4H, 2 doses, First dose on Tue08/28/20 at 0000, Last dose on Tue08/28/20 at 0400, Routine Given 08/28/2020 12:59 AM [facility] TECHNICIAN 40 mEq KCL 20 mEq/15 mL solution 40 mEq Given 08/28/2020 8:05 AM [facility] TECHNICIAN 40 mEq 40 mEq, Oral, Q4H, 4 doses, First dose on Tue08/28/20 at 0800, Last dose on Tue08/28/20 at 2000, Routine KCL 20 mEq/15 mL solution 40 mEq Given 08/28/2020 11:42 AM [facility] TECHNICIAN 40 mEq 40 mEq, Oral, Q4H, 1 dose, First dose (after last modification) on Tue08/28/20 at 1200, Routine KCL 20 mEq/15 mL solution 40 mEq Given 08/30/2020 1:49 AM [facility] TECHNICIAN 40 mEq 40 mEq, Oral, ONCE, 1 dose, Tue08/29/20 at 1900, Routine KCL 20 mEq/15 mL solution 80 mEq Given 08/25/2020 3:05 AM [facility] TECHNICIAN 80 mEq 80 mEq, Oral, ONCE NOW, 1 dose, Tue08/25/20 at 0245, Routine LORazepam (ATIVAN) tablet 0.5 mg Given 08/25/2020 4:14 PM [facility] TECHNICIAN 0.5 mg 0.5 mg, Oral, ONCE, 1 dose, Tue08/25/20 at 1415, Routine LORazepam (ATIVAN) tablet 0.5 mg Given 08/27/2020 3:56 PM [facility] TECHNICIAN 0.5 mg 0.5 mg, Oral, ONCE, 1 dose, Tue08/27/20 at 1645, Routine magnesium sulfate in water 4 gram/50 mL (8 %) New Bag 9:03 PM [facility] TECHNICIAN 4 g IV Piggyback 4 g 4 g, IV Piggyback, ONCE, 1 dose, Tue08/25/20 at 1845, Routine NaCl 0.9% (NS) bolus infusion New Bag 08/23/2020 7:05 PM CDT 1,000 mL 999 mL/hr 1,000 mL at 999 mL/hr, 1,000 mL, IV Infusion, ONCE, 1 dose, 08/23/20 at 1845, ROBERTO NaCl 0.9% (NS) IV infusion 1,000 New Bag 08/23/2020 11:23 PM C DT 1,000 mL 150 mL/hr mL at 150 mL/hr, Intravenous, ONCE, 1 dose, 08/23/20 at 2315, ROBERTO ondansetron (ZOFRAN (PF)) injection 4 mg Given 08/23/2020 7:06 PM CDT 4 mg 4 mg, Slow IV Push, ONCE, 1 dose, 08/23/20 at 2000, ROBERTO pantoprazole (PROTONIX) 40 mg in NaCl 0.9% Given 08/24/2020 8:0 1 AM [facility] TECHNICIAN 40 mg (NS) 100 mL MINI-BAG 40 mg, IV Piggyback, QAM, First dose on 08/24/20 at 0900, Until Discontinued, 100 mL pantoprazole (PROTONIX) 40 mg in NaCl 0.9% Given 08/26/2020 12:3 3 PM [facility] TECHNICIAN 40 mg (NS) 100 mL MINI-BAG 40 mg, IV Piggyback, BID, First dose (after last modification) on 08/24/20 at 2000, Until Discontinued, 100 mL Given 08/25/2020 11:28 PM [facility] TECHNICIAN 40 mg Given 08/25/2020 8:45 AM [facility] TECHNICIAN 40 mg penicillin g benzathine Given 08/25/2020 9:04 PM 2.4 Million Left Deltoid-IM (BICILLIN L-A) injection [facility] TECHNICIAN Units 2.4 Million Units 2.4 Million Units, Intramuscular, ONCE, 1 dose, 08/25/20 at 1730, ROBERTO, Reason for Anti-Infective: Documented Infection, Documented Infection Site: Other, Other site: syphylis, Duration of Therapy: Other (see Comments) pneumococcal vac polyvalent Given 08/30/2020 12:37 PM [facility] TECHNICIAN 0.5 mL Right Deltoid-IM (PNEUMOVAX-23) injection 0.5 mL 0.5 mL, Intramuscular, ONCE, 1 dose, 08/30/20 at 1200, Routine potassium chloride 20 mEq/100 mL (KCL) 20 Given 08/27/2020 5:48 AM [facility] TECHNICIAN 20 mEq mEq/100 mL 20 mEq piggyback 20 mEq, IV Piggyback, ONCE, 1 dose, 08/27/20 at 0500 potassium chloride in water 10 Given 08/23/2020 10:32 PM CDT 10 mEq 100 mL/hr mEq/100 mL RTU 10 mEq 10 mEq, IV Piggyback, ONCE, 1 dose, 08/23/20 at 2145, 100 mL potassium chloride in water 10 Given 08/23/2020 9:21 PM CDT 10 mEq 100 mL/hr mEq/100 mL RTU 10 mEq 10 mEq, IV Piggyback, ONCE, 1 dose, 08/23/20 at 2045, 100 mL sod bicarb-citric ac-simeth (E-Z-GAS II) Given 08/29/2020 2 :04 PM [facility] TECHNICIAN 1 Packet 2.21-1.53 gram/4 gram packet 1 Packet 1 Packet, Oral, ONCE, 1 dose, 08/29/20 at 1415, Routine documented in this encounter Additional Health Concerns Infection Onset Date Last Indicated Resolved Time COVID-19 Rule Out 08/23/2020 08/23/2020 08/23/2020 8: 37 PM CDT COVID-19 Rule Out 08/28/2020 08/28/2020 08/28/2020 7: 56 PM [facility] TECHNICIAN documented as of this encounter Insurance Payer Benefit Plan / Subscriber ID Effective Phone Address T ype Group Dates MEDICAID MEDICAID PENDING 2020-Pre [address] [place] [address] P[place] [address] documented as of this encounter
[2020-09-14] MEDS ORDERED: KETOROLAC 30 MG/ML INJ ONE (23:16)
[2020-09-14 23:21] LABS: Absolute Lymphocytes (CBC) 2.5 K/uL (0.7-4.9); Basophils % 0.2 % (0-1.3); Hematocrit 29.5 % (39.6-49.0); Lymphocytes % 42.6 % (15.3-44.8); MPV 8.9 fL (7.6-11.3); RBC Red Blood Cell Count 3.34 M/uL (4.33-5.43)
[2020-09-14 23:59] LABS: Barbiturates NEGATIVE (NEGATIVE); Benzodiazepines NEGATIVE (NEGATIVE); Cocaine POSITIVE (NEGATIVE); METHAMPHETAM POSITIVE (NEGATIVE); Methadone NEGATIVE (NEGATIVE); Opiates NEGATIVE (NEGATIVE); Phencyclidine NEGATIVE (NEGATIVE); THC Cannibis NEGATIVE (NEGATIVE)
[2020-09-14 23:59] LABS: BUN Blood Urea Nitrogen 10 mg/dL (7-18); Bicarbonate 32 mmol/L (21-32); Glucose Level 75 mg/dL (74-106); Sodium Level 150 mmol/L (136-145); Troponin (Emerg Dept Use Only) < 0.02 ng/mL (0.0-0.045)
[2020-09-15 00:01] LABS: Potassium 2.4 mmol/L (3.5-5.1)
[2020-09-15 00:14] LABS: Urine Blood TRACE (NEG); Urine Glucose NEGATIVE (NEG); Urine Protein 2+ (NEG); Urine Specific Gravity 1.025 (1.005-1.030)
[2020-09-15] MEDS ORDERED: POTASSIUM 25 MEQ EFFERV TAB ONE (00:15)
[2020-09-15] MEDS ORDERED: NA CHLORIDE 0.9% 500 ML ONE (00:15)
[2020-09-15] MEDS ORDERED: KCL 20 MEQ/100 mL IVPB 20 MEQ/100 ML BAG IV ONE (00:16)
[2020-09-15 00:18] LABS: Magnesium 2.2 mg/dL (1.8-2.4)
--- NOTE | 2020-09-15 00:41 | ER ---
Nurse's Notes [facility] Name: Tahir Ag Jr Age: 35 yrs Sex: Male : 1985 Arrival Date: 09/14/2020 Time: 22:31 Bed 15 Private MD: Diagnosis: Hypokalemia Presentation: 09/14 22:25 Chief complaint: EMS states: patient complaint of shakiness, general weakness and rr5 tremors he said he feels like his potassium is low. V/S 121/82 hr 72 bpm, O2 sat 100 %. 22:25 Coronavirus screen: Client denies travel out of the [place] in the last 14 days. At this rr5 time, the client does not indicate any symptoms associated with coronavirus-19. Ebola Screen: Patient negative for fever greater than or equal to 101.5 degrees Fahrenheit, and additional compatible Ebola Virus Disease symptoms Patient denies exposure to infectious person. Patient denies travel to an Ebola-affected area in the 21 days before illness onset. Initial Sepsis Screen: Does the patient meet any 2 criteria? No. Patient's initial sepsis screen is negative. Does the patient have a suspected source of infection? No. Patient's initial sepsis screen is negative. Risk Assessment: Do you want to hurt yourself or someone else? Patient reports no desire to harm self or others. Onset of symptoms was September 14, 2020. 22:25 Method Of Arrival: EMS: [facility] rr5 22:25 Acuity: MARTINA 3 rr5 Historical: - Allergies: 22:35 No Known Allergies; rr5 - PMHx: 22:35 Diabetes - NIDDM; Hernia; Hypertension; Schizophrenia; Bipolar disorder; rr5 - PSHx: 22:35 Knee surgery; shoulder surgery; rr5 - Immunization history:: Adult Immunizations up to date. - Social history:: Smoking status: Patient reports the use of cigarette tobacco products, smokes one-half pack cigarettes per day, Patient uses street drugs, marijuana. Screenin:40 Abuse screen: Denies threats or abuse. Denies injuries from another. Nutritional rr5 screening: No deficits noted. Tuberculosis screening: No symptoms or risk factors identified. Fall Risk IV access (20 points). Total Durham Fall Scale indicates No Risk (0-24 pts). Assessment: 23:10 Cardiovascular: Reports chest pain, ED provider aware with order made and carried out. rr5 23:10 Pain: Complains of pain in chest Pain currently is 9 out of 10 on a pain scale. Quality rr5 of pain is described as aching, Pain began gradually, Is intermittent. 09/15 00:00 Reassessment: Yon chin relayed result. ED provider aware with order made and carried rr5 out. 00:15 Reassessment: PD officer stated will just issue a warrant to him. patient can go when rr5 discharge. 00:46 Reassessment: reassess by ED provider may go home after the drip. explained the result rr5 and plan of care to patient. 01:37 Reassessment: Patient appears in no apparent distress at this time. Patient and/or rr5 family updated on plan of care and expected duration. Pain level reassessed. Patient is alert, oriented x 3, equal unlabored respirations, skin warm/dry/pink. ongoing potassium drip. after the infusion for discharge Patient states feeling better. Patient states symptoms have improved. 02:09 Reassessment: Patient appears in no apparent distress at this time. Patient is alert, rr5 oriented x 3, equal unlabored respirations, skin warm/dry/pink. potassium drip consumed and terminated. discharge instruction given and explained without complaints made. Vital Signs: 09/14 22:25 BP 104 / 75; Pulse 60; Resp 16; Temp 98.1; Pulse Ox 100% ; Weight 54.43 kg; Height 5 rr5 ft. 5 in. (165.10 cm); Pain 0/10; 23:00 BP 95 / 62; Pulse 55; Resp 16; Pulse Ox 98% ; rr5 09/15 00:15 BP 99 / 70; Pulse 58; Resp 17; Pulse Ox 99% ; rr5 01:38 BP 118 / 90; Pulse 62; Resp 17; Pulse Ox 99% ; rr5 02:11 BP 121 / 74; Pulse 65; Resp 19; Pulse Ox 99% ; rr5 09/14 22:25 Body Mass Index 19.97 (54.43 kg, 165.10 cm) rr5 ED Course: 09/14 22:30 Patient has correct armband on for positive identification. Bed in low position. Call rr5 light in reach. Pulse ox on. NIBP on. 22:31 Patient arrived in ED. rr5 22:32 Elgin Leal NP is PHCP. pm1 22:32 Alan Nguyễn MD is Attending Physician. pm1 22:34 Triage completed. rr5 23:00 Mitch Ruth RN is Primary Nurse. rr5 23:15 Inserted saline lock: 20 gauge in right antecubital area, using aseptic technique. rr5 Blood collected. 09/15 00:48 No provider procedures requiring assistance completed. rr5 Administered Medications: 09/14 23:21 Drug: TORadol 30 mg Route: IVP; Site: right antecubital; rr5 09/15 00:13 Drug: Potassium Chloride 20 mEq Route: IV; Rate: calculated rate; Site: right rr5 antecubital; 00:14 Drug: Potassium Effervescent Tablet 50 mEq Route: PO; rr5 00:14 Drug: NS 0.9% 500 ml Route: IV; Rate: bolus; Site: right antecubital; rr5 02:00 Follow up: Response: No adverse reaction; IV Status: Completed infusion; IV Intake: rr5 500ml Intake: 02:00 IV: 500ml; Total: 500ml. rr5 Outcome: 00:40 Discharge ordered by . pm1 02:12 Patient left the ED. rr5 Signatures: Elgin Leal NP AREA DEVELOPMENT CONSULTANT pm1 Mitch Ruth, RN RN rr5
--- NOTE | 2020-09-15 00:41 | EDPHYS ---
Physician Documentation [facility] Name: Tahir Ag Jr Age: 35 yrs Sex: Male : 1985 Arrival Date: 09/14/2020 Time: 22:31 Bed 15 Private MD: ED Physician Alan Nguyễn HPI: 09/14 23:01 This 35 yrs old Black Male presents to ER via EMS with complaints of General Weakness. pm1 23:01 The patient presents to the emergency department with weakness of the entire body, pm1 generalized weakness. Onset: The symptoms/episode began/occurred today. Associated signs and symptoms: Pertinent positives: weakness, Pertinent negatives: fever, nausea, vomiting, chest pain. Current symptoms: Currently, the patient is not experiencing any symptoms. The patient has experienced similar episodes in the past, and the symptoms today are exactly the same, to previous hypokalemia. Patient reports multiple episodes of hypokalemia in the past. Likely due to his poor dietary intake. Patient presents to the ER today with complaints of possible hypokalemia due to generalized weakness. Patient was just arrested today for shoplifting and is in police custody. Historical: - Allergies: 22:35 No Known Allergies; rr5 - PMHx: 22:35 Diabetes - NIDDM; Hernia; Hypertension; Schizophrenia; Bipolar disorder; rr5 - PSHx: 22:35 Knee surgery; shoulder surgery; rr5 - Immunization history:: Adult Immunizations up to date. - Social history:: Smoking status: Patient reports the use of cigarette tobacco products, smokes one-half pack cigarettes per day, Patient uses street drugs, marijuana. ROS: 23:01 Constitutional: Negative for fever, chills, and weight loss, Neck: Negative for injury, pm1 pain, and swelling, Cardiovascular: Negative for chest pain, palpitations, and edema, Respiratory: Negative for shortness of breath, cough, wheezing, and pleuritic chest pain, Abdomen/GI: Negative for abdominal pain, nausea, vomiting, diarrhea, and constipation, Back: Negative for injury and pain, MS/Extremity: Negative for injury and deformity, Skin: Negative for injury, rash, and discoloration. 23:01 Neuro: Positive for weakness, generalized, Negative for dizziness, headache. Exam: 23:01 Constitutional: This is a well developed, well nourished patient who is awake, alert, pm1 and in no acute distress. Head/Face: Normocephalic, atraumatic. Neck: Trachea midline, no thyromegaly or masses palpated, and no cervical lymphadenopathy. Supple, full range of motion without nuchal rigidity, or vertebral point tenderness. No Meningismus. Chest/axilla: Normal chest wall appearance and motion. Nontender with no deformity. No lesions are appreciated. 23:01 Back: No spinal tenderness. No costovertebral tenderness. Full range of motion. Skin: Warm, dry with normal turgor. Normal color with no rashes, no lesions, and no evidence of cellulitis. MS/ Extremity: Pulses equal, no cyanosis. Neurovascular intact. Full, normal range of motion. 23:01 Cardiovascular: Exam negative for acute changes, Rate: normal, Rhythm: regular, Pulses: no pulse deficits are appreciated. 23:01 Respiratory: Exam negative for acute changes, respiratory distress, shortness of breath. 23:01 Neuro: Exam negative for acute changes, Orientation: is normal, Motor: is normal, moves all fours. Vital Signs: 22:25 BP 104 / 75; Pulse 60; Resp 16; Temp 98.1; Pulse Ox 100% ; Weight 54.43 kg; Height 5 rr5 ft. 5 in. (165.10 cm); Pain 0/10; 23:00 BP 95 / 62; Pulse 55; Resp 16; Pulse Ox 98% ; rr5 09/15 00:15 BP 99 / 70; Pulse 58; Resp 17; Pulse Ox 99% ; rr5 01:38 BP 118 / 90; Pulse 62; Resp 17; Pulse Ox 99% ; rr5 02:11 BP 121 / 74; Pulse 65; Resp 19; Pulse Ox 99% ; rr5 09/14 22:25 Body Mass Index 19.97 (54.43 kg, 165.10 cm) rr5 MDM: 09/14 22:34 Patient medically screened. pm1 09/15 00:39 Data reviewed: vital signs. Data interpreted: Pulse oximetry: on room air is 99 %. pm1 Interpretation: normal. Counseling: I had a detailed discussion with the patient and/or guardian regarding: the historical points, exam findings, and any diagnostic results supporting the discharge/admit diagnosis, lab results, the need for outpatient follow up, to return to the emergency department if symptoms worsen or persist or if there are any questions or concerns that arise at home. 00:41 ED course: Patient is doing fine without any complaints and eating a sandwich now that pm1 the senior escrow officer has left. The police have released him now and plan to just issue a warrant. Educated the patient on potassium content of foods and need to follow up with PCP for further treatment and evalution. 09/14 22:33 Order name: Basic Metabolic Panel; Complete Time: 00:25 pm1 09/14 22:33 Order name: CBC with Diff; Complete Time: 23:59 pm1 09/14 22:34 Order name: UDS; Complete Time: 00:01 pm1 09/14 23:09 Order name: Troponin (Emerg Dept Use Only); Complete Time: 00:25 EDMS 09/14 23:16 Order name: Urine Dipstick--Ancillary (enter results); Complete Time: 00:16 mw2 09/14 22:33 Order name: IV Saline Lock; Complete Time: 23:21 pm1 09/14 22:33 Order name: Labs collected and sent; Complete Time: 23:21 pm1 09/15 00:14 Order name: Magnesium; Complete Time: 00:25 EDMS 09/14 22:34 Order name: Urine Dipstick-Ancillary (obtain specimen); Complete Time: 23:21 pm1 09/14 23:00 Order name: EKG - Nurse/Tech; Complete Time: 23:21 rr5 Administered Medications: 09/14 23:21 Drug: TORadol 30 mg Route: IVP; Site: right antecubital; rr5 09/15 00:13 Drug: Potassium Chloride 20 mEq Route: IV; Rate: calculated rate; Site: right rr5 antecubital; 00:14 Drug: Potassium Effervescent Tablet 50 mEq Route: PO; rr5 00:14 Drug: NS 0.9% 500 ml Route: IV; Rate: bolus; Site: right antecubital; rr5 02:00 Follow up: Response: No adverse reaction; IV Status: Completed infusion; IV Intake: rr5 500ml Disposition: 06:07 Co-signature as Attending Physician, Alan Nguyễn MD. mh7 Disposition: 09/15/20 00:40 Discharged to Home. Impression: Hypokalemia. - Condition is Stable. - Discharge Instructions: Potassium Content of Foods, Hypokalemia. - Prescriptions for Potassium Chloride 20 meq Oral Packet - take 1 packet by ORAL route once daily 1 packet in 6 (six) ounces of water or juice; Take after meal; 30 packet. - Medication Reconciliation Form, Thank You Letter, Antibiotic Education, Prescription Opioid Use form. - Follow up: Emergency Department; When: As needed; Reason: Worsening of condition. Follow up: Private Physician; When: 2 - 3 days; Reason: Recheck today's complaints, Continuance of care, Re-evaluation by your physician. - Problem is new. - Symptoms have improved. Signatures: Dispatcher [employer] EDNV Elgin Leal NP HIGH SCHOOL COACH pm1 Mitch Ruth RN RN rr5 Alan Nguyễn MD MD 7 Corrections: (The following items were deleted from the chart) 09/14 23:09 23:02 TROPONIN (EMERG DEPT USE ONLY)+C.LAB.BRZ ordered. EDNV EDNV 09/15 00:13 00:09 MAGNESIUM+C.LAB.BRZ ordered. [facility] 02:12 00:40 09/15/2020 00:40 Discharged to Home. Impression: Hypokalemia. Condition is rr5 Stable. Forms are Medication Reconciliation Form, Thank You Letter, Antibiotic Education, Prescription Opioid Use. Follow up: Emergency Department; When: As needed; Reason: Worsening of condition. Follow up: Private Physician; When: 2 - 3 days; Reason: Recheck today's complaints, Continuance of care, Re-evaluation by your physician. Problem is new. Symptoms have improved. pm1
[2020-09-15 08:06] VITALS: TEMP 98.1
[2020-09-15 08:10] VITALS: O2SAT 99
[2020-09-15 08:14] VITALS: BP 121/74
== END 2020-09-15 02:12 | disposition home or self-care (01) ==
LOC: ER 22:25
DX: E87.6 Hypokalemia (principal); I10 Essential (primary) hypertension; F20.9 Schizophrenia, unspecified; F17.210 Nicotine dependence, cigarettes, uncomplicated
CPT/HCPCS: 36415; 80048; 80307; 81003; 83735; 84484; 85025; 93005; 96361; 96374; 96375; 99284; J3480; J7040

== ENCOUNTER 2020-10-05 14:04 | Emergency (ER) | payer SELFPAY ==
--- OUTSIDE RECORDS SUMMARY | 2020-10-05 14:05 | XMS REPORT | Clinical Summary ---
:1985 Author Organization [facility] Address [facility] [place] [address] Care Team Providers Name Role Phone Unavailable Primary Care Provider Unavailable Allergies No Known Active Allergies Medications No known medications Active Problems Not on file Social History Tobacco Use Types Packs/Day Years Used Date Never Assessed Sex Assigned at Date Recorded Not on file Last Filed Vital Signs Not on file Plan of Treatment Health Maintenance Due Date Last Done Comments IMM Influenza Seasonal Jul to December (>/= 19 yrs) 07/24/2020 Results Not on fileafter 10/05/2019 Insurance Payer Benefit Plan / Subscriber ID Effective Dates Phone Addre ss Type Group [employer] SELF-PAY [id number] 2014-Prese [phone] [id number] [place] SELF-PAY UNSCREENED nt [address] [place] [address] (Work) [id number]
--- OUTSIDE RECORDS SUMMARY | 2020-10-05 14:06 | XMS REPORT | Continuity of Care Document ---
:1985 Author Organization [facility] t Address [address] [place] [address] Care Team Providers Name Role Phone Konrad MCDONALD Attending Clinician Viviane Mendez MD Attending Clinician Becky ARENAS Attending Clinician Sarah Johnson MD Attending Clinician Ana Gardner Attending Clinician Unavailable Brooks Sawant MD Attending Clinician Oni DOBSON Attending Clinician Giovanny KONG S Attending Clinician Radha ARENAS C Attending Clinician Leidy ARENAS M Attending Clinician Doctor Unassigned, Name Attending Clinician Unavailable Keri Clarke DO Attending Clinician Van Attending Clinician Oren CONTRERAS Attending Clinician Jose Hamilton MD Attending Clinician Shelton ARENAS Admitting Clinician Becky ARENAS Admitting Clinician Radha ARENAS C Admitting Clinician Problems This patient has no known problems. Allergies, Adverse Reactions, Alerts This patient has no known allergies or adverse reactions. Social History Social Habit Start Date Stop Date Quantity Comments Source Sex Assigned At [facility] Medications This patient has no known medications. Procedures This patient has no known procedures. Plan of Care Planned Activity Planned Date Details Comments Source Future Scheduled Test 2020-07-24 00:00:00 IMM Influenza [facility] Seasonal Jul to December (>/= 19 yrs) [code = IMM Influenza Seasonal Jul to December (>/= 19 yrs)] Encounters Start End Encounter Admission Attending Care Care Encounter Source Date/Time Date/Time Type Type Clinicians Facility Department ID 2020-10-04 2020-10-04 Emergency Konrad, TRAUMA [id number] 14:21:00 16:02:00 [facility] [id number] 2020-10-03 2020-10-04 [facility] Jamel Mendez 1.2.840. [id number] 21:25:00 11:00:00 [id number] [id number] 2020-10-04 2020-10-04 Case NEGRITO Gardner [id number] 00:00:00 00:00:00 Management Roxann OTT [id number] [facility] [id number] 2020-10-02 2020-10-03 [facility] Rolan Sawant [id number] 16:21:00 15:55:00 Encounter Erwin Pena [id number] [facility] [id number] 2020-10-03 2020-10-03 Patient Sharon Bunn [id number] 00:00:00 00:00:00 Outreach Micki Jo [id number] Daniela [id number] 2020-09-26 2020-10-02 [facility] Johana Baltazar [id number] 09:58:00 14:26:00 Encounter Radha Delvis Jose Ott [id number] 0 Tony Forbes [facility] [id number] Erwin Pena [id number] 2020-09-23 2020-09-23 Orders Doctor MAHAN [id number] 00:00:00 00:00:00 Only Unassigned, NAMRATA [id number] [facility] [id number] 2020-09-20 2020-09-20 [facility] [id number] 13:37:00 17:50:00 Iram Howe [id number] [place] 4.2.7.2.686 [place] [id number] 2020-09-01 2020-09-01 Transition Sharon Araujo [id number] 00:00:00 00:00:00 of Care Henrietta Rizoy [id number] [place] [id number] 2020-08-23 2020-08-30 [facility] Gauri Lott 1.2.840.1 [id number] 18:15:00 16:15:00 Encounter Ramila Johnson [id number] [facility] [id number] 2020-08-23 2020-08-23 Orders Doctor MAHAN [id number] 00:00:00 00:00:00 Only Unassigned, NAMRATA [id number] [facility] [id number] [id number] 2020-05-02 2020-05-02 Emergency [facility] [id number] 02:29:01 07:27:00 Brett Howe [id number] [place] [id number] [place] [address] [id number] Results This patient has no known results.
--- OUTSIDE RECORDS SUMMARY | 2020-10-05 14:09 | XMS REPORT | Summary of Care ---
:1985 Author Organization [facility] - [facility] Address [address] [place] [address] Care Team Providers Name Role Phone Pcp, Does Not Have A Primary Care Provider Reason for Visit Reason Comments Hypoglycemia unresponsive Auth/Cert Status Reason Specialty Diagnoses / Referred By Referred To Procedures Contact Contact Emergency Medicine [facility] Em ergency Dept [address] [place], [place] [address] Fax: Encounter Details Date Type Department Care Team Description 09/20/2020 Emergency ADC-Emergency Iram Clarke Hypogly cemia (Primary Department DO Dx) [address] [place] [address] [place] [address] [phone] Allergies No Known Allergiesdocumented as of this encounter (statuses as of 09/20/2020) Medications Medication Sig Dispensed Refills Start Date [...] as of this encounter (statuses as of 09/20/2020) Active Problems Problem Noted Date E46 Unspecified severe protein-calorie malnutrition 1 10/25/2019 Dysphagia 08/24/2020 Hypokalemia 08/24/2020 Esophageal dysphagia 08/23/2020 Overview: Added automatically from request for gin singletary [id number] Bipolar 1 disorder GERD (gastroesophageal reflux disease) documented as of this encounter (statuses as of 09/20/2020) Immunizations Name Administration Dates Next Due Influenza Virus Vaccine Quad .5 mL IM 6+ MO 08/30/2020 Pneumococcal Polysaccharide, PPSV23 (PNEUMOVAX) 08/30/2020 documented as of this encounter Social History Tobacco Use Types Packs/Day Years Used Date Never Assessed Sex Assigned at Date Recorded Not on file COVID-19 Exposure Response Date Recorded In the last month, have you been in contact Unable to assess 09/20/2020 1:41 PM BUSINESS EXECUTIVE with someone who was confirmed or 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 documented as of this encounter Last Filed Vital Signs Vital Sign Reading Time Taken Comments Blood Pressure 130/89 09/20/2020 4:35 PM BUSINESS EXECUTIVE Pulse 95 09/20/2020 4:35 PM BUSINESS EXECUTIVE Temperature - - Respiratory Rate 18 09/20/2020 4:35 PM BUSINESS EXECUTIVE Oxygen Saturation 98% 09/20/2020 4:35 PM BUSINESS EXECUTIVE Inhaled Oxygen Concentration - - Weight 49.9 kg (110 lb) 09/20/2020 1:37 PM BUSINESS EXECUTIVE Height - - Body Mass Index 17.75 08/23/2020 6:11 PM CDT documented in this encounter Discharge Instructions Iram Macedo DO - 09/20/2020DIAGNOSIS 1. Hypoglycemia NO LIFE-THREATENING FINDINGS ON TODAY'S EXAM. PROCEDURES IN THE ER TODAY: Blood work MEDICATIONS ADMINISTERED IN THE ER TODAY: Dextrose YOUR PRESCRIPTIONS AND [id number] MEDICATION RECOMMENDATIONS: None SPECIAL CARE INSTRUCTIONS: None FOLLOW-UP RECOMMENDATIONS: RECOMMEND FOLLOW-UP WITH A PRIMARY CARE PROVIDER OR SPECIALIST IN 2-5 DAYS, ESPECIALLY IF NO IMPROVEMENT IN SYMPTOMS. TO FOLLOW-UP WITHIN THE [facility], TRY THESE OPTIONS (CLINIC APPOINTMENTS AVAILABLE ON HKTD-GD-EUNU BASIS): 1. SCHEDULE AN APPOINTMENT ONLINE AT [email or web address] 2. OR CALL THE [facility] AT OR 3. OR CALL YOUR [facility] PHYSICIAN'S OFFICE DIRECTLY IF YOU ARE ALREADY AN ESTABLISHED [facility] PATIENT. OR, YOU MAY FOLLOW-UP WITH A PROVIDER OF YOUR CHOICE, SUCH : 1. A PHYSICIAN OF YOUR CHOICE 2. [facility], . LOCATIONS IN [facility] 3. [facility], [address] [place], [place]; [phone] RETURN TO ER FOR WORSENING OF SYMPTOMS. AttachmentsThe following attachments cannot be sent through Care Everywhere. Blood Sugar, Low; Hypoglycemia ([place] Citizen)documented in this encounter ED Notes Louise Ibarra RN - 09/20/2020 1:38 PM CSTPatient given Dextrose 50%, patient is becoming more alert, and making screaming noises. Dr. Clarke at bedside. Continuing to monitor patient. Louise García RN - 09/20/2020 1:34 PM CST35 year old male unresponsive to stimuli, no gag present arriving with a IO with D10 by EMS. EMS BGL was [address] Clarke at bedside. Patient place on the monitor. IV and Labs in progress.EMS reported BGL 23 at the assisted. Iram James DO - 09/20/2020 1:32 PM CST [facility] Emergency Department Note Patient Name: Tahir Ag Jr. Date of : 1985 35 year old male Treatment Room: TR9/TR9 Primary Care Physician: PATIENT DOES NOT HAVE A PCP Patient Escorted by: Law enforcement [8] Mode of Arrival: EMS - Schneider [[id number]] EMS Treatment Prior to ED Arrival: RECRUITER SPECIALIST treatment: None Travel and Exposure Screening: Symptoms Does patient have any of these symptoms?: (not recorded) Exposure Screening Has patient had contact with someone with a communicable disease in the last month?: (not recorded) Diseases exposed to:: (not recorded) Is Patient ?: (not recorded) Exposure Date: (not recorded) Chief Complaint: Chief Complaint Patient presents with Hypoglycemia unresponsive History of Present Illness: Patient presents with EMS for eval for unresponsive and hypoglycemia. Found with a glucose of 23. A right humeral IO was placed and D10 infusion was initiated. Patient remains unresponsive upon arrival and is unable to give a history. No documented h/o DM. Is from [facility]. Past Medical History/Immunizations: Past Medical History: Diagnosis Date Bipolar 1 disorder GERD (gastroesophageal reflux disease) Manic affective disorder with recurrent episode Schizophrenia Tetanus received in last 5 years: Unknown Childhood immunizations: Up-to-date Allergies: No Known Allergies Past Social History: Substance & Sexual Activity No substance use or sexual activity history on file. Past Surgical History: History reviewed. No pertinent surgical history. Review of Systems: Review of Systems Unable to perform ROS: Other Physical Exam: ED Triage Vitals [09/20/20 1337] Weight 49.9 kg (110 lb) Actual or estimated Height BP 109/78 Pulse 79 Resp 14 Temp Temp src SpO2 100 % Measured on Physical Exam Vitals signs and nursing note reviewed. Constitutional: Appearance: Normal appearance. He is cachectic. HENT: Mouth/Throat: Mouth: Mucous membranes are dry. Neck: Musculoskeletal: Neck supple. Cardiovascular: Rate and Rhythm: Normal rate. Pulses: Normal pulses. Pulmonary: Effort: Pulmonary effort is normal. Abdominal: General: There is no distension. Palpations: Abdomen is soft. Tenderness: There is no abdominal tenderness. Musculoskeletal: Normal range of motion. Skin: General: Skin is warm and dry. Neurological: Mental Status: He is lethargic. Radiology: No results found for this visit on 09/20/20. Lab Results (24h): Recent Results (from the past 24 hour(s)) CBC with Differential Collection Time: 09/20/20 1:47 PM Result Value Ref Range WBC 11.87 (H) 4.20 - 10.70 10*3/L RBC 4.11 (L) 4.26 - 5.52 10*6/L HGB 11.9 (L) 12.2 - 16.4 g/dL HCT 35.3 (L) 38.4 - 49.3 % MCV 85.9 81.7 - 95.6 fL MCH 29.0 26.1 - 32.7 pg MCHC 33.7 31.2 - 35.0 g/dL RDW-SD 45.1 38.5 - 51.6 fL RDW-CV 14.8 12.1 - 15.4 % PLT 316 150 - 328 10*3/L MPV 11.1 9.8 - 13.0 fL NRBC/100 WBC 0.0 0.0 - 10.0 /100 WBCs NRBC x10^3 <0.01 10*3/L GRAN MAT (NEUT) % 79.9 % IMM GRAN % 0.80 % LYMPH % 14.7 % MONO % 4.3 % EOS % 0.0 % BASO % 0.3 % GRAN MAT x10^3(ANC) 9.48 (H) 1.99 - 6.95 10*3/uL IMM GRAN x10^3 0.09 (H) 0.00 - 0.06 10*3/uL LYMPH x10^3 1.75 1.09 - 3.23 10*3/uL MONO x10^3 0.51 0.36 - 1.02 10*3/uL EOS x10^3 <0.03 (L) 0.06 - 0.53 10*3/uL BASO x10^3 0.04 0.01 - 0.09 10*3/uL Basic Metabolic Panel (NA, K, CL, CO2, GLUCOSE, BUN, CREATININE, CA) Collection Time: 09/20/20 1:47 PM Result Value Ref Range NA 142 135 - 145 mmol/L K 4.4 3.5 - 5.0 mmol/L CL 105 98 - 108 mmol/L CO2 TOTAL 27 23 - 31 mmol/L AGAP 10 2 - 16 BUN 47 (H) 7 - 23 mg/dL GLUCOSE 177 (H) 70 - 110 mg/dL CREATININE 0.75 0.60 - 1.25 mg/dL CALCIUM 8.6 8.6 - 10.6 mg/dL eGFR Calculation (Non-) 117.8 mL/min/1.73m2 eGFR Calculation () 142.8 mL/min/1.73m2 COVID-19 (ID NOW RAPID TESTING) Collection Time: 09/20/20 1:47 PM Specimen: NASOPHARYNGEAL SWAB Result Value Ref Range SARS-CoV-2 Rapid ID NOW Positive (A) Not Detected POCT GLUCOSE (AUTOMATED) Collection Time: 09/20/20 3:32 PM Result Value Ref Range POCT GLU 96 70 - 110 mg/dL EKG: Nsr, no stemi, QTc 458, rate 63 Orders and Treatments: Orders Placed This Encounter Procedures CBC with Differential Basic Metabolic Panel (NA, K, CL, CO2, GLUCOSE, BUN, CREATININE, CA) COVID-19 (ID NOW RAPID TESTING) LAB ONLY COVID INTERPRETATION POCT GLUCOSE (AUTOMATED) Orders Placed This Encounter Medications dextrose 50 % in water (D50W) injection 50 mL dextrose 10% (D10W) bolus infusion 250 mL ED COURSE patient presents with EMS for eval for unresponsive and hypoglycemia episode. [facility] no [facility] h/o DM. Was found unresponsive and them EMS was called who found him with a glucose of23. Has a right humeral IO placed and he was started with a D10 infusion. Brought for eval. Patient unresponsive upon arrival. Dry MM. Minimal gag reflex. Lungs clear. Pulses present b/l. IV access obtained and he was given an amp of D50 followed by the infusion of D10. His right humeral IO was noted to be bent and was not infusing - removed and dressed. Patient started to wake up and was difficult to redirect. Was thrashing around his bed. After several minutes he became more appropriate, was able to follow commands and answer questions appropriately. Will continue with the D10 infusion. Will give sandwich and juice. Will check labs and screen for covid. Will continue to monitor his glucose. Final dispo pending. 1430 - patient awake and appropriate in the room. Encouraged him to finish his sandwich. 1550 - glucose 96. Eating a lunch tray. Will recheck his glucose. Anticipate discharge home later. 1640 - glucose 120s. Patient doing well. Stable here in the EC and is ok for discharge home with PCP f/u. MDM: Coding Scoring Tools: No data recorded Diagnosis/Impression: ICD-10-CM ICD-9-CM 1. Hypoglycemia E16.2 251.2 Disposition/Condition: ED Disposition ED Disposition Condition Comment Disch - Home Stable Discharge Medications: Patient's Medications START taking these medications No medications on file CONTINUE taking these medications which have NOT CHANGED DIVALPROEX SODIUM (DEPAKOTE ORAL) Take by mouth. ERGOCALCIFEROL, VITAMIN D2, 1,250 MCG (50,000 UNIT) CAPSULE Take 1 capsule by mouth weekly for 5doses. GUANFACINE HCL (TENEX ORAL) Take by mouth. NITROGLYCERIN 0.[address] 1 tablet under the tongue before meals. OMEPRAZOLE 40 MG CAPSULE Take 1 capsule by mouth daily. SERTRALINE HCL (ZOLOFT ORAL) Take by mouth. ZIPRASIDONE (GEODON) 80 MG CAPSULE Take 80 mg by mouth 2 (two) times daily with meals. START taking Modified Medications as Prescribed No medications on file STOP taking these medications No medications on file Follow-up: Electronically signed by: Iram Clarke DO 09/20/2020 1:45 PM NESS EXECUTIVE documented in this encounter Miscellaneous Notes ED Nurse Note - Eunice Reese, RN - 09/20/2020 4:56 PM CSTPt given printed and verbal discharge instructions regarding hypoglycemia, encouraged hydration. Pt verbalized understanding of instructions, pt awake alert oriented, resp reg unlabored, skin w/d, color appropriate for race, moves all ext well,pt encouraged to follow up with PCP. Advised to seek medical attention for new/prolonged/worsening of symptoms. No adverse reaction to meds given in ER noted upon discharge. PIV d'cd, dressing to site, catheter in tact. Awake, alert oriented, resp reg unlabored, skin w/d, pt leaving amb with steady gait, in no apparent distress. NESS EXECUTIVE documented in this encounter Plan of Treatment Name Type Priority Associated Diagnoses Date/Ti me LAB ONLY COVID LAB STAT Hypoglycemia 09/20/2020 1 :47 PM INTERPRETATION BUSINESS EXECUTIVE Name Type Priority Associated Diagnoses Order S chedule LAB ONLY COVID LAB Routine Hypoglycemia ONCE for 1 Oc currences INTERPRETATION starting 08/25 until 0 Health Maintenance Due Date Last Done Comments [...] Name Priority Date/Time Associated Diagnosis Comme nts POCT GLUCOSE Routine 09/20/2020 4:36 Results for this (AUTOMATED) PM BUSINESS EXECUTIVE procedure are i n the results section. POCT GLUCOSE Routine 09/20/2020 3:32 Results for this (AUTOMATED) PM BUSINESS EXECUTIVE procedure are i n the results section. COVID-19 (ID NOW STAT 09/20/2020 1:47 Hypoglycemia Results for this RAPID TESTING) PM BUSINESS EXECUTIVE procedure are in the results section. CBC WITH DIFF STAT 09/20/2020 1:47 Hypoglycemia Results fo r this PM BUSINESS EXECUTIVE procedure are i n the results section. BASIC METABOLIC STAT 09/20/2020 1:47 Hypoglycemia Results for this PANEL (NA, K, CL, PM BUSINESS EXECUTIVE procedure are in CO2, GLUCOSE, BUN, the resul ts CREATININE, CA) section. documented in this encounter Results POCT GLUCOSE (AUTOMATED) (09/20/2020 4:36 PM BUSINESS EXECUTIVE) Pathologist Sig nature POCT GLU 127 (H) 70 - 110 mg/dL [facility]OR[facility] Specimen Blood Performing Organization Address [facility] Phone Number [facility] CLIA: [id number] [place] [address] [place] [address] POCT GLUCOSE (AUTOMATED) (09/20/2020 3:32 PM BUSINESS EXECUTIVE) Pathologist Sig nature POCT GLU 96 70 - 110 mg/dL [facility] Specimen Blood Performing Organization Address [facility] Phone Number [facility] CLIA: [id number] [place] [address] [place] [address] COVID-19 (ID NOW RAPID TESTING) (09/20/2020 1:47 PM BUSINESS EXECUTIVE) SARS-CoV-2 Rapid ID Positive (A) Not Detected [facility] Specimen Swab - NASOPHARYNGEAL SWAB Narrative Performed At ID NOW COVID-19 Assay is an isothermal nucleic [facility] acid amplification test intended for the qualitative detection of nucleic acid from SARS-CoV-2 viral RNA in nasopharyngeal (GYROSCOPIC ENGINEERING TECHNICIAN) specimens. It is used under Emergency Use [...] indicated. Performing Organization Address City/State/Zipcode Phone Number [facility] CLIA: [id number] [place] [address] Basic Metabolic Panel (NA, K, CL, CO2, GLUCOSE, BUN, CREATININE, CA) (09/20/2020 1:47 PM BUSINESS EXECUTIVE) [facility] NA 142 135 - 145 [facility] mmol/L [facility] K 4.4 3.5 - 5.0 [facility] mmol/L [facility] CL 105 98 - 108 mmol/L [facility] CO2 TOTAL 27 23 - 31 mmol/L [facility] AGAP 10 2 - 16 [facility] BUN 47 (H) 7 - 23 mg/dL [facility] GLUCOSE 177 (H) 70 - 110 mg/dL [facility] CREATININE 0.75 0.60 - 1.25 [facility] mg/dL [facility] CALCIUM 8.6 8.6 - 10.6 [facility] mg/dL [facility] eGFR Calculation 117.8 mL/min/1.73m2 [facility] ([facility] LABORATORY Citizen Of [place]) eGFR Calculation 142.8 mL/min/1.73m2 [facility] () [facility] Specimen Blood - VENOUS Narrative Performed At Association of Glomerular Filtration Rate (GFR) [facility] [...] tests). Performing Organization Address City/State/Zipcode Phone Number [facility] CLIA: [id number] [place] [address] CBC with Differential (09/20/2020 1:47 PM BUSINESS EXECUTIVE) Pathologist Sig nature WBC 11.87 (H) 4.20 - 10.70 [facility] 10*3/L [facility] RBC 4.11 (L) 4.26 - 5.52 [facility] 10*6/L [facility] HGB 11.9 (L) 12.2 - 16.4 [facility] g/dL [facility] HCT 35.3 (L) 38.4 - 49.3 % [facility] MCV 85.9 81.7 - 95.6 fL [facility] MCH 29.0 26.1 - 32.7 pg [facility] MCHC 33.7 31.2 - 35.0 [facility] g/dL [facility] RDW-SD 45.1 38.5 - 51.6 fL [facility] RDW-CV 14.8 12.1 - 15.4 % [facility] PLT 316 150 - 328 [facility] 10*3/L [facility] LAB[facility] MPV 11.1 9.8 - 13.0 fL [facility] NRBC/100 WBC 0.0 0.0 - 10.0 /100 [facility] WBCs [facility] NRBC x10^3 <0.01 10*3/L [facility] GRAN MAT (NEUT) % 79.9 % [facility] IMM GRAN % 0.80 % [facility] LYMPH % 14.7 % [facility] MONO % 4.3 % [facility] EOS % 0.0 % [facility] BASO % 0.3 % [facility] GRAN MAT x10^3(ANC) 9.48 (H) 1.99 - 6.95 [facility] 10*3/uL [facility] LAB[facility]AT[facility] IMM GRAN x10^3 0.09 (H) 0.00 - 0.06 [facility] 10*3/uL [facility] LAB[facility] LYMPH x10^3 1.75 1.09 - 3.23 [facility] 10*3/uL [facility] MONO x10^3 0.51 0.36 - 1.02 [facility] 10*3/uL [facility] EOS x10^3 <0.03 (L) 0.06 - 0.53 [facility] 103/uL [facility] LAB[facility] BASO x10^3 0.04 0.01 - 0.[address]/[facility] LABORATORY Specimen Blood - VENOUS Performing Organization Address City/State/Zipcode Phone Number [facility] CLIA: [id number] [place] [address] documented in this encounter Visit Diagnoses Diagnosis Hypoglycemia - Primary Hypoglycemia, unspecified documented in this encounter Administered Medications Medication Order MAR Action Action Date Dose Rate Site dextrose 10% (D10W) bolus Given 09/20/2020 2:40 PM BUSINESS EXECUTIVE 250 mL infusion 250 mL 250 mL, IV Infusion, ONCE, 09/20/20 at 1445, For 1 dose, Dextrose 10% 250 mL bag contains: 10 gm = 100 mL 20 gm = 200 mL 25 gm = 250 mL (whole bag) The maximum rate at which dextrose can be infused without producing glycosuria is 0.5 g/kg/hour. BUD: If wrapper is open bag is good for 30 days at room temperature. , dextrose 50 % in water (D50W) injection 50 mL Given 09/20/2020 2:45 PM BUSINESS EXECUTIVE 50 mL 50 mL, Intravenous, ONCE, 1 dose, 09/20/20 at 1445, STAT documented in this encounter Additional Health Concerns Infection Onset Date Last Indicated Resolved Time COVID-19 Rule Out 09/20/2020 09/20/2020 09/20/2020 2: 14 PM BUSINESS EXECUTIVE COVID-19 Confirmed 09/20/2020 09/20/2020 documented as of this encounter Insurance Payer Benefit Plan / Subscriber ID Effective Dates Phone Addre ss Type Group [facility] [id number] 2020-Pres [place], [place] Agency EKATERINA chandra [id number] documented as of this encounter"
--- OUTSIDE RECORDS SUMMARY | 2020-10-05 14:09 | XMS REPORT | Summary of Care ---
:1985 Author Organization [facility] - Health Address [address] [place] [address] Care Team Providers Name Role Phone Pcp, Does Not Have A Primary Care Provider Encounter Details Date Type Department Care Team Description 09/23/2020 Orders Only [facility] Doctor Unassigned, No [address] [facility] [place] [address] [address] [place] [address] Allergies No Known Allergiesdocumented as of this encounter (statuses as of 09/30/2020) Medications Medication Sig Dispensed Refills Start Date End Date Status divalproex sodium Take by mouth. 0 Suspended (DEPAKOTE ORAL) sertraline HCl Take by mouth. 0 Suspended (ZOLOFT ORAL) guanfacine HCl Take by mouth. 0 Suspended (TENEX ORAL) ergocalciferol, Take 1 capsule 5 capsule 0 09/03/2020 10/02/20 20 Suspended vitamin d2, 1,250 by mouth weekly mcg (50,000 unit) for 5 doses. capsuleIndications: Achalasia of esophagus Additional Information nitroglycerin 0.[address] 1 tablet 90 tablet 2 04/2020 Suspended tabletIndications: Achalasia of under the tongue esophagus before meals. Additional Information omeprazole 40 mg Take 1 capsule by 30 capsule 2 08/30/2020 Suspended capsuleIndications: Achalasia mouth daily. of esophagus Additional Information ziprasidone (GEODON) 80 mg capsule Take 80 mg by mouth 2 (two) 0 Suspended times daily with meals. documented as of this encounter (statuses as of 09/30/2020) Active Problems Problem Noted Date Abdominal pain 09/26/2020 E46 Unspecified severe protein-calorie malnutrition 1 10/25/2019 Dysphagia 08/24/2020 Hypokalemia 08/24/2020 Esophageal dysphagia 08/23/2020 Overview: Added automatically from request for gin singletary [id number] Bipolar 1 disorder GERD (gastroesophageal reflux disease) documented as of this encounter (statuses as of 09/30/2020) Immunizations Name Administration Dates Next Due Influenza Virus Vaccine Quad .5 mL IM 6+ MO 08/30/2020 Pneumococcal Polysaccharide, PPSV23 (PNEUMOVAX) 08/30/2020 documented as of this encounter Social History Tobacco Use Types Packs/Day Years Used Date Never Assessed Sex Assigned at Date Recorded Not on file COVID-19 Exposure Response Date Recorded In the last month, have you been in contact with Yes 09/26/2020 10:01 AM ORGANIZATIONAL CONSULTANT someone who was confirmed or 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 documented as of this encounter Last Filed Vital Signs Not on filedocumented in this encounter Plan of Treatment Date Type Specialty Care Team Description 11/14/2020 Office Visit Thoracic Surgery Delvis Garcia MD [address] [place] [address] [phone] Health Maintenance Due Date Last Done Comments VARICELLA VACCINES (1 of 2 - 2-dose childhood series) 1985 Depression Screening 1996 DTaP,Tdap,and Td Vaccines (1 - Tdap) 2003 PNEUMOCOCCAL 0-64 YEARS COMBINED SERIES (2 of 3 - 08/30/2021 08/30/2020 PCV13) INFLUENZA VACCINE Completed 08/30/2020 documented as of this encounter Procedures Procedure Name Priority Date/Time Associated Diagnosis Comme nts AUTHORIZATION FOR RELEASE Routine 09/23/2020 12:01 AM OF PHI ORGANIZATIONAL CONSULTANT documented in this encounter Results Not on filedocumented in this encounter Additional Health Concerns Infection Onset Date Last Indicated Resolved Time COVID-19 Confirmed 09/20/2020 09/20/2020 09/30/2020 8 :13 AM ORGANIZATIONAL CONSULTANT COVID-19 Rule Out 09/26/2020 09/26/2020 09/26/2020 11: 31 AM ORGANIZATIONAL CONSULTANT COVID-19 Rule Out 09/27/2020 09/27/2020 09/28/2020 2: 24 AM ORGANIZATIONAL CONSULTANT documented as of this encounter Insurance Payer Benefit Plan / Subscriber ID Effective Phone Address T ype Group Dates MEDICAID MEDICAID PENDING 2020- [place] Pending PENDING PENDING 12/2019 CAMI Reddy [id number] documented as of this encounter
--- OUTSIDE RECORDS SUMMARY | 2020-10-05 14:13 | XMS REPORT | Summary of Care ---
:1985 Author Organization [facility] Address [address] [place] [id number] Care Team Providers Name Role Phone Pcp, Does Not Have A Primary Care Provider Reason for Visit Reason Comments Social Work Encounter Details Date Type Department Care Team Description 10/03/2020 Patient Outreach [facility] hospital Lisa Bunn, [facility] Social Work Network[address] [phone] Allergies No Known Allergiesdocumented as of this encounter (statuses as of 10/03/2020) Medications Medication Sig Dispensed Refills Start Date End Date Status divalproex sodium Take by mouth. 0 Suspended (DEPAKOTE ORAL) sertraline HCl (ZOLOFT Take by mouth. 0 Suspended ORAL) guanfacine HCl (TENEX Take by mouth. 0 Suspended ORAL) nitroglycerin [address] 1 tablet 90 tablet 2 08/30/2020 Suspended sublingual under the tabletIndications: tongue before Achalasia of esophagus meals. Additional Information omeprazole 40 mg Take 1 capsule by 30 capsule 2 08/30/2020 Suspended capsuleIndications: Achalasia mouth daily. of esophagus Additional Information ziprasidone (GEODON) 80 mg capsule Take 80 mg by mouth 2 (two) 0 Suspended times daily with meals. documented as of this encounter (statuses as of 10/03/2020) Active Problems Problem Noted Date Epigastric abdominal pain 10/02/2020 Abdominal pain 09/26/2020 E46 Unspecified severe protein-calorie malnutrition 1 10/25/2019 Dysphagia 08/24/2020 Hypokalemia 08/24/2020 Esophageal dysphagia 08/23/2020 Overview: Added automatically from request for gin singletary [id number] Bipolar 1 disorder GERD (gastroesophageal reflux disease) documented as of this encounter (statuses as of 10/03/2020) Immunizations Name Administration Dates Next Due Influenza Virus Vaccine Quad .5 mL IM 6+ MO 08/30/2020 Pneumococcal Polysaccharide, PPSV23 (PNEUMOVAX) 08/30/2020 documented as of this encounter Social History Tobacco Use Types Packs/Day Years Used Date Current Every Day Smoker Smokeless Tobacco: Never Used Comments: 1/2 pack/ day Education Answer Date Recorded What is the highest level of school you have High school gra duate 10/02/2020 completed or the highest degree you have received? Sex Assigned at Date Recorded Not on file COVID-19 Exposure Response Date Recorded In the last month, have you been in contact with No / Unsure 10/02/2020 10:32 PM [employer] someone who was confirmed or 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 documented as of this encounter Last Filed Vital Signs Not on filedocumented in this encounter Progress Notes Micki Bunn LCSW - 10/03/2020 9:14 AM CSTSocial Work Note SW conducted a chart review based on patient's recent readmission 2/2 non- compliance with care. Contacted [facility] to inquire about current referral. Was informed that they are pursuing both [facility] and Social Security disability benefits. Given patient's dx of schizophrenia, he has a better than average chance of receiving disability benefits, although documentation and the process may take time. SW will continue to follow as needed post-discharge. Micki Bunn LCSW, [facility]- Pulmonologist/Intensivist, Social Work Office Bengali proficient [employer] documented in this encounter Plan of Treatment Date Type Specialty Care Team Description 11/14/2020 Office Visit Thoracic Surgery Delvis Garcia MD [address] [phone] Health Maintenance Due Date Last Done Comments VARICELLA VACCINES (1 of 2 - 2-dose childhood series) 1985 Depression Screening 1996 DTaP,Tdap,and Td Vaccines (1 - Tdap) 2003 PNEUMOCOCCAL 0-64 YEARS COMBINED SERIES (2 of 3 - 08/30/2021 08/30/2020 PCV13) INFLUENZA VACCINE Completed 08/30/2020 documented as of this encounter Results Not on filedocumented in this encounter
--- OUTSIDE RECORDS SUMMARY | 2020-10-05 14:13 | XMS REPORT | Summary of Care ---
:1985 Author Organization [facility] Address [address] [place] [place] [id number] Care Team Providers Name Role Phone Pcp, Does Not Have A Primary Care Provider Reason for Referral (Routine) Status Reason Specialty Diagnoses / Referred By Contact Refe rred To Procedures Contact New Request Cardiology Diagnoses Abdominal pain Erwin Pena MD Procedures ECHO ROUTINE W/DOPPLER COLOR [address] [place] [address] Phone: (STAT) Status Reason Specialty Diagnoses / Referred By Referred To Procedures Contact Contact Pending Review Diagnostic Diagnoses Abdominal pain Delvis Garcia Radiology Procedures FL BARIUM SWALLOW ESOPHAGUS MD Jose [address] [place] [address] Radiology Services (STAT) Status Reason Specialty Diagnoses / Referred By Referred To Procedures Contact Contact Pending Review Diagnostic Diagnoses Elevated LFTs Pramod Chawla, Radiology Procedures US ABDOMEN LIMITED DO [address] [facility]. [address] [place] [address] MRI/CAT Scan (STAT) Status Reason Specialty Diagnoses / Referred By Referred To Procedures Contact Contact Pending Review Diagnostic Diagnoses Hypoglycemia Hypothermia, initial encounter COVID-19 Elevated LFTs Johana Baltazar, Radiology Procedures CT ABDOMEN PELVIS WO CONTRAST PAC [address] [facility] [address] Radiology Services (STAT) Status Reason Specialty Diagnoses / Referred By Referred To Procedures Contact Contact Pending Review Diagnostic Diagnoses Hypoglycemia Hypothermia, initial encounter COVID-19 Johana Baltazar, Radiology Procedures XR CHEST [address] [place] [place] [address] Reason for Visit Reason Comments Body Aches Auth/Cert Status Reason Specialty Diagnoses / Referred By Referred To Procedures Contact Contact Emergency Medicine [facility] ergency Dept [address] [place] [id number] Fax: Encounter Details Date Type Department Care Team Description 09/26/2020 - Hospital Encounter Medicine (JADE 10B) Johana Baltazar, [address] [place] [address] [phone] Abdominal pain 10/02/2020 712 [facility] Delvis Garcia MD [address] [place] [phone] [place] [address] Tony Forbes MD [address] [place] [address] [phone] Erwin Pena MD [address] [place] [phone] Allergies No Known Allergiesdocumented as of this encounter (statuses as of 10/02/2020) Medications Medication Sig Dispensed Refills Start Date End Date Status divalproex sodium Take by 0 Ac tive (DEPAKOTE ORAL) mouth. sertraline HCl Take by 0 Activ e (ZOLOFT ORAL) mouth. guanfacine HCl Take by 0 Activ e (TENEX ORAL) mouth. nitroglycerin 0.4 Place 1 90 tablet 2 08/30/2020 A ctive mg sublingual tablet under tabletIndications: the tongue Achalasia of before meals. esophagus omeprazole 40 mg Take 1 30 capsule 2 08/30/2020 A ctive capsuleIndications: capsule by Achalasia of mouth daily. esophagus ziprasidone Take 80 mg by 0 Acti ve (GEODON) 80 mg mouth 2 (two) capsule times daily with meals. ergocalciferol, Take 1 5 capsule 0 09/03/2020 10/02/2020 Di scontinued vitamin d2, 1,250 capsule by mcg (50,000 unit) mouth weekly capsuleIndications: for 5 doses. 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 documented as of this encounter Last Filed Vital Signs Vital Sign Reading Time Taken Comments Blood Pressure 103/87 10/02/2020 9:36 AM MACHINE CLOTHING REPLACER Pulse 86 10/02/2020 9:36 AM MACHINE CLOTHING REPLACER Temperature 36.4 C (97.5 F) 10/02/2020 9:36 AM MACHINE CLOTHING REPLACER Respiratory Rate 17 10/02/2020 9:36 AM MACHINE CLOTHING REPLACER Oxygen Saturation 100% 10/02/2020 9:36 AM MACHINE CLOTHING REPLACER Inhaled Oxygen Concentration - - Weight 49.8 kg (109 lb 12.6 oz) 09/30/2020 4:00 PM MACHINE CLOTHING REPLACER Height - - Body Mass Index 17.72 08/23/2020 6:11 PM CDT documented in this encounter Progress Notes Dixie Smith RN - 10/02/2020 2:39 PM CSTPatient left AMA Care Management Discharge Disposition Note (DCDN) 5-2-1 Interventions: Disease specific education;Intensive medication reconciliation/management 5-2-1 Providers: Physician;Steel Melter/Cat And Dog Bather;Nurse 5-2-1 Patient Capacity Improvements: Discharge Plan for ongoing care and services: Patient Choice completed for referred services: Discussed with patient/patients family involved in decision making: Patient's family or support contact: Discharge Plan: Receiving facility was provided the following clinical documentation at discharge- CM Facesheet, Consult notes, Labs, Progress Notes, MAR: DME location: Other DME location: Durable Medical Equipment: Home Health location: Discharge location(s): Community resources/referrals made or provided to patient: No Resources/Referrals: Mental Status: Alert & Oriented to Person,Place & Time Psychosocial issues and/or concerns resulting in patient being a high risk for re-admission: Manage ADL indepentdly: Living Arrangement: Home Other living arrangement: Address of living arrangement: [address] [place] [phone] Funding Resources: Self Pay Has patient been referred to [facility]? Nursing informed of discharge plan: No CHP referral sent? No CM medication request completed (if appropriate): No PCP: No Transportation: Private Vehicle Prior authorization obtained for ambulance: Authorization number: CPT code: Discharge Medications Will the patient be able to obtain his medications? Does the patient have transportation to to obtain the prescription medications? Yes CM Medication Request completed (if appropriate): Yes Name of RN informed: Expected discharge date: 10/03/2020 Time: Additional Information: patient left AMA / Name & Contact number: Dixie Smith RN Ph. [phone] The following information has been provided to the facility noted above: reason for the patient discharge or transfer; patients physical and psychosocial status; summary of care, treatment, servicesprovided to patient; and the patient progress toward goals. Tyrone Booker MD - 10/01/2020 2:19 PM CST Gastroenterology and Hepatology Progress Note Date of Service: 10/01/2020 14:22 Chief Complaint: Achalasia SUBJECTIVE/ MAJOR EVENTS: Patient was desiring to eat solid foods, despite lengthy counseling by Dr. Reep and GI service as tothe major risks involved. Patient will be unable to pass the solid food past his LES and he is at a higher risk of aspiration, and patient counseled and made aware and despite medical advice is choosing to eat solids. He otherwise has no complaints. ROS: Constitutional: No weakness HEENT: No dry mouth CV: No chest pain Resp: No shortness of breath GI: no abdominal pain PHYSICAL EXAM: Temp: [35.2 C (95.4 F)-36.9 C (98.4 F)] Pulse: [54-85] Resp: [17-20] BP: (111-137)/(76-98) MAP (mmHg): [88-108] Intake/Output Summary (Last 24 hours) at 10/01/2020 1422 Last data filed at 09/30/2020 1611 Gross per 24 hour Intake Output 600 ml Net -600 ml General: Patient is alert and oriented x4, No apparent distress. Cardiovascular: Regular rate and rhythm, no murmurs; no LE edema. Respiratory: Clear to auscultation bilaterally. Abdomen: Nondistended, no surgical scars, inverted umbilicus, soft, no tenderness, no masses, normalbowel sounds. LABS/IMAGING - REVIEWED Results for TAHIR SANCHES ( ) as of 10/01/2020 14:23 09/28/2020 02:31 09/28/2020 10:00 09/29/2020 05:34 09/30/2020 02:16 10/01/2020 03:40 ALK PHOS 861 (H) 773 (H) 773 (H) 792 (H) 1,093 (H) ALTv 515 (H) 483 (H) 439 (H) 463 (H) 722 (H) AST(SGOT) 561 (H) 434 (H) 304 (H) 408 (H) 975 (H) CK 600 (H) 09/29/2020 05:34 HBV PCR Not Detected Labs IgG 741 LOYD Negative HCV PCR Pending HBV PCR Negative 09/28/2020 10:00 09/28/2020 13:22 09/29/2020 05:34 09/30/2020 02:16 10/01/2020 03:40 ALBUMIN 2.8 (L) 2.9 (L) 3.4 (L) 3.3 (L) CURRENT MEDICATIONS - REVIEWED ASSESSMENT/PLAN Tahir Sanches Jr. is a 35 year old malewith PMH as listed above, GI consulted for acute liver injury and dysphagia. Elevated Transaminases Dysphagia likely from Achalasia COVID + Severe Protein Calorie Malnutrition Assessment: For patient's liver injury our most likely explanation is either an acute viral hepatitis C (still pending PCR) or an ischemic event related to ongoing drug use (cocaine, syncope). His liver enzymes had been downtrending, but have again started to uptrend and workup has been unrevealing thus far. In regards to patients dysphagia he most likely has achalasia based on his barium swallow and further CT imaging. He has lost significant amount of weight due to an inability to tolerate solids as it would be very unlikely for foods to pass through his tight LES junction. Recommendations: - INR,CBC,CMPdaily - ok with CLD from GI perspective; would not advance diet past full liquid as patient will not be able to tolerate any solid foods given tight LES. We have counseled patient extensively regarding risksof advancing diet including aspiration - EGD/manometry deferred for now; we would like to wait at least 20 days from positive test (with 10days of no symptoms), and need to additionally wait for his acute liver enzyme elevation to normalize before any endoscopic evaluation can take place. If an emergency were to rise we could consider more urgent endoscopy - can attempt to place an NGT under IR guidance (may fail given tight LES), for supplemental nutrition - he will need to be optimized on a liquid nutrition intake, including Ensure supplementation to getenough calories to support on clears - calorie counts with each meals -please orderHepatitisAIgM,HBV core IgG and IgM, EBV, CMV, HSV PCR, Ferritin, Alpha 1 antitrypsin phenotype, Ceruloplasmin, ASMA, AMA, IgG level, anti-LKM1 - follow up drug testing - daily weights Patient was seen and discussed with Dr. Mcgowan. Please call with questions. GI will continue to follow. Tyrone Mendoza MD PGY-4 Gastroenterology and Hepatology Contact Information Available on [facility] INE CLOTHING REPLACER Associated attestation - Rell Mcgowan MD - 10/01/2020 8:18 PM CSTI personally examined the patient on 10/01/[address] Mendoza's note with the following addition(s): Upon our arrival to his room the patient was getting ready to eat a hamburger and fries, healso has reportedly been going downstairs and getting solid food from the vending machines. I had along, detailed discussion with the patient today regarding his abnormal liver enzymes, his current malnutrition, and the suspicion for achalasia as the cause of his swallowing difficulties. I explained that at this point he will not be able to tolerate a regular solid diet due to his tight LES, and that retention of the food in his esophagus is very likely to cause him pain, nausea, regurgitation, and increase his aspiration risk. For these reasons it is imperative that he remain on a liquid-only diet and practice swallow precautions until we can perform treatment to decrease his LES pressure by either surgical or endoscopic means. At this time given his severe malnutrition he is a poor surgical candidate. I would favor endoscopic Botox injection over dilation as the best initial treatment for this reason as well as his high likelihood of poor post- surgical recovery plan compliance. Howevergiven his recent COVID19 infection ideally he needs to be at least 20 days out (Tuesday10/10/20) from his initial positive test and remain symptomatic before he undergoes endoscopy. In order to improve his nutrition if he is unable to get adequate calories from a PO liquid diet then one option would be to have IR attempt placement of a Dobhoff. If they are unable to get it across the GE junction and his nutrition need becomes dire before next Tuesday then urgent EGD with COVID19 precautions can be done for diagnostic purposes and to place a feeding tube; endoscopic placement of an esophageal manometry catheter can also be attempted at that time. The patient expressed understanding of the discussion but was reluctant to comply with the liquid-only diet. We will see how he decides to proceed. Zak discussed the above in detail with the primary team faculty. I actively participated in the decision-making process. Please see the fellow's note for additional details. Rell Mcgowan MD [facility] Division of Gastroenterology and Hepatology Lynda Snyder Ana - 10/01/2020 11:55 AM CST MEDICAL NUTRITION THERAPY Progress Note Subjective: Nutrition Patient was placed on Regular Diet with pureed texture but patient refused stating he wants solid textured foods. Per RN, he is not tolerating solid food - he has vomited several times, with vomit bagsbeing found hidden in the room. Patient still wants solid foods despite being educated of the risks (aspiration) involved due to his medical condition. Noted, patient is high risk for refeeding - phosphate is 1.2 mg/dL today. Patient is also severe PCM. Patient Active Problem List Diagnosis Dysphagia Hypokalemia Bipolar 1 disorder GERD (gastroesophageal reflux disease) Esophageal dysphagia E46 Unspecified severe protein-calorie malnutrition Abdominal pain Nutritionally Significant Medications: Current Facility-Administered Medications: lidocaine (LIDODERM) 5 % (700 mg/patch) patch 1 Patch, 1 Patch, Topical, DAILY, Tato Gallegos DO, 1 Patch at 09/30/20 0952 D5W 0.45% NaCl (1/2NS) IV infusion 1,000 mL, 1,000 mL, IV Infusion, CONTINUOUS, Tato Gallegos DO, Last Rate: 150 mL/hr at 10/01/20 0102, 1,000 mL at 10/01/20 0102 dextrose 50 % in water (D50W) injection 25 mL, 25 mL, Slow IV Push, PRN - SEE INSTRUCTIONS, Rolan Mckinney MD glucagon (GLUCAGEN DIAGNOSTIC KIT) injection 1 mg, 1 mg, Intramuscular, PRN, Rolan Mckinney MD ondansetron (ZOFRAN (PF)) injection 4 mg, 4 mg, Slow IV Push, Q6HPRN, Naty Francois MD, 4 mg at 09/30/20 0231 valproate (DEPACON) 750 mg in D5W piggyback, 750 mg, IV Piggyback, DAILY, Naty Francois MD, 750 mg at 10/01/20 0926 Nutritionally Significant Lab and Medical Test Results: Results for TAHIR SANCHES JR. ( ) as of 10/01/2020 13:28 Ref. Range 10/01/2020 03:40 NA Latest Ref Range: 135 - 145 mmol/L 136 K Latest Ref Range: 3.5 - 5.0 mmol/L 3.6 CL Latest Ref Range: 98 - 108 mmol/L 99 CO2 TOTAL Latest Ref Range: 23 - 31 mmol/L 31 AGAP Latest Ref Range: 2 - 16 6 BUN Latest Ref Range: 7 - 23 mg/dL 12 GLUCOSE Latest Ref Range: 70 - 110 mg/dL 61 (L) CREATININE Latest Ref Range: 0.60 - 1.25 mg/dL 0.61 eGFR CALCULATION (non ) Latest Units: mL/min/1.73m2 149.6 eGFR CALCULATION () Latest Units: mL/min/1.73m2 181.3 TOTAL BILI Latest Ref Range: 0.1 - 1.1 mg/dL 1.5 (H) BILI UNCON Latest Ref Range: 0.1 - 1.1 mg/dL 1.2 (H) BILI CONJ Latest Ref Range: 0.0 - 0.3 mg/dL 0.0 CALCIUM Latest Ref Range: 8.6 - 10.6 mg/dL 7.5 (L) PHOSPHORUS Latest Ref Range: 2.5 - 5.0 mg/dL 1.2 (L) MAGNESIUM Latest Ref Range: 1.7 - 2.4 mg/dL 2.0 T PROTEIN Latest Ref Range: 6.3 - 8.2 g/dL 7.1 ALBUMIN Latest Ref Range: 3.5 - 5.0 g/dL 3.3 (L) ALK PHOS Latest Ref Range: 34 - 122 U/L 1,093 (H) ALTv Latest Ref Range: 5 - 50 U/L 722 (H) AST(SGOT) Latest Ref Range: 13 - 40 U/L 975 (H) CK Latest Ref Range: 33 - 194 U/L 600 (H) Intake/Output Summary (Last 24 hours) at 10/01/2020 1155 Last data filed at 09/30/2020 1611 Gross per 24 hour Intake Output 600 ml Net -600 ml Weight History: Wt Readings from Last 10 Encounters: 09/30/20 49.8 kg (109 lb 12.6 oz) 09/20/20 49.9 kg (110 lb) 08/23/20 49.9 kg (110 lb) 05/02/20 63.5 kg (140 lb) 01/10/19 72.6 kg (160 lb) Inflammatory Markers: N/A Current Dietary Order(s): Nepro (1.8 kcal/mL, low electrolyte) Regular Diet; Texture: Regular. Estimated Daily Nutritional Needs: Calories: 2250 kcal/day = 45 kcal/kg current wt = 35 kcal/kg IBW Protein: 20 % of kcal need/day = 113 g/day = 2.2 g/kg current wt = 1.8 g/kg IBW Fluid: 2250 mL/day or per MD; adjust per acute needs Nutrition Diagnosis: Difficulty swallowing related to achalasia as evidenced by patient continues to vomit after consuming solids. Nutrition Interventions: 1. Recommend post-pyloric PEG placement. Discontinue Regular Texture Diet. 2. Recommend PO diet consist of only liquids - ONS x3/day preferred. 3. Monitor for refeeding syndrome. Goals: 1. Patient will be placed on food plan that alleviates emesis. Nutrition Monitoring and Evaluation: A registered dietitian will f/u as indicated to report nutrition related information and to revise the recommended nutrition intervention(s). Please call with questions or concerns, thank-you. D/C Planning: Pending Lynda Snyder RD, LD Clinical Dietitian Office: [phone] Bill Mahan DO - 10/01/2020 7:33 AM CST [facility] Team Medicine Progress Note Date of Service: 10/01/2020 07:33 Chief Complaint: "blacking out" 24-HOUR EVENTS: Transferred to [facility]. Patient left room to "eat a cinnamon bun" with subsequent episode of vomiting and brought back by [facility]. SUBJECTIVE: Patient seen in morning reporting difficulty swallowing solids and liquids together but is able to tolerate either alone. His main concern is advancing to a regular diet. He reports constipation (no BMsince 2 days ago), depressed mood (05/01 SIGECAPS -ve for SI, appetite change), occasional confusion (thinks he is laying in bed when nurses tell him he's on the couch), double vision, and generalized weakness. He denies lightheadedness, n/v/d, manic symptoms, auditory hallucinations, SI/HI, CP, SOB. Last used cocaine 2 weeks ago. Reports 30lb weight loss in the past 2 months with onset of dysphagia. PHYSICAL EXAM: Temp: [35.2 C (95.3 F)-36.9 C (98.4 F)] Pulse: [54-85] Resp: [18-20] BP: (111-141)/(87-96) MAP (mmHg): [93-110] Intake/Output Summary (Last 24 hours) at 10/01/2020 0733 Last data filed at 09/30/2020 1611 Gross per 24 hour Intake Output 1800 ml Net -1800 ml General: ill-appearing, cachectic, temporal wasting, appears older than stated age Lungs: clear to auscultation bilaterally Cardio: S1, S2 normal; no murmurs, rubs or gallops Abdomen: flat abdomen with TTP in lower abdomen and tenderness to deep palpation in all 4 quadrants;positive Calle's sign Extremities: no clubbing, cyanosis, or edema Skin: Pale Neuro: no focal deficits LABS/IMAGING - reviewed 09/20: Sars COV2: Rapid: Positive 09/26: Rapid Negative 09/27 NAAT: Negative CoV IgG: Positive HBcAB Total: Reactive HBcIgM: Negative HAV Ab IgM: Negative HIV: Negative with CD4 of 833 LOYD: Negative Alk P: 792 -> 1093 ALT: 463-> 722 AST: 408-> 975 ASSESSMENT/PLAN Tahir Sanches Jr. is a 35 year old male admitted to the hospital with: Achalasia Dysphagia Acute Liver Injury Thrombocytopenia Acute Kidney Injury- resolved Hyperkalemia - resolved Hypoglycemia - resolved Severe Protein Calorie Malnutrition Risk For Refeeding Syndrome Hypophosphatemia Hypomagnesemia Liver enzymes acutely elevated today, almost returned to same level of admission. Patient left room overnight and states he went to eat a cinnamon roll and denies any drug use but patient has a hx of leaving room during previous admission with similar excuse and was found to be positive for drug use at that time. This is believed to be the cause of his elevated liver enzymes. Pending UDS as initial UDS at time of admission was negative. Negative HBV PCR, HBcIgM, HAV IgM, HIV, LOYD. Discussed with GI and they recommend against regular diet d/t ineligibility for endoscopy and suggest different feedingtubes. Patient initially refused and ate a hamburger but experienced vomiting immediately thereafter. He was also found to have bags of vomit hidden in his room. Patient states he will now comply with pureed food diet. Will monitor for refeeding syndrome. Pending hepatitis w/u.Pt thrombocytopenic today at 71 with negativ HIT-ab, d/c enoxaparin. - F/u GI recs -Pending infectious, autoimmune workup and UDS -Vitamin K 10mg daily for 3 days (D2/3) -Defer EGD Manometry during acute phase of liver injury. GI wanting to wait 20 days from positive COVID test prior to procedure. -stop regular diet - on tele - Monitor urine output to ensure adequate hydration - D5 1/2NS - Continue to monitor glucose levels q4 as patient has been recurrently hypoglycemic - Monitor and replete lytes as needed - Stop Lovenox COVID 19 Infection Patient with previous COVID + on 09/20 at [facility] prior to transfer but has been negative since he's been here. Noted positive for IgG. -Per COVID Interpretation dated 09/27: "While this patient had positive test results in the past, most recently this patient has tested negative on two or more consecutive occasions for the SARS-CoV-2 virus that causes COVID-19 illness. This most likely indicates that the patient does not have an active infection with the SARS-CoV-2 virus, especially if these recent negative tests coincide with the patient's current presentation." Bipolar 1 and Schizophrenia Patient with previously noted psychiatric disorder. Currently calm and stable with reported depressed mood. -C/w home Valproate IV as patient patient with poor tolerance to PO PAIN: Uncontrolled Tramadol Prophylaxis: DVT- enoxaparin Stress Ulcer: pantoprazole Code Status: not addressed: presumed full Disposition Anticipated Discharge Date : TBD Barriers to Discharge: elevated transaminases, stabalizing po intake Abi Beckham, MS3 [facility] Team I personally examined the patient on 10/01/2020 and have verified the medical student documentation and/or findings, including the history, physical exam, and medical decision making. Additionally, I have personally performed or re- performed the physical exam and medical decision making activities of this patient's evaluation and management service. Bill Roque, DO Internal Medicine, PGY-1 [facility] Tahir Sanches . is a 35 year old male with PMH of bipolar 1, schizophrenia and achalazia. Paitient initially admitted with thought of esophageal rupture at the GE junction due to CT findings of possible rupture at GE junction. Patient previously admitted 09/12 for similar symptoms but EGD was differed due to UDS positive for cocaine. On admission, labs significant for hyperkalemia, hypoglycemia and acute liver failure with LFTs in the 1000's. Patient made NPO and UGI series was negative foresophageal leak. Confirmed Achalasia with barium swallow. GI Consulted for evaluation of acute liver failure. Previous hepatitis etiology work up unremarkable, sending further infectious and autoimmunemarkers. Likely due to ischemic shock liver due to syncopal episode vs admission to recent cocaine use. Improving SONDRA with fluids. Patient tolerating full liquids with occasional puree solids currently. On the floor, patient continue to receive IVF with continual monitoring, noted to have low Phos andMag and aggressively repleted. Transferred to [facility] team for further care. Pending endoscopy after20 days since last positive Covid test. Monitoring patient for potential refeeding syndrome and potential need for feeding tube placement. CURRENT MEDICATIONS - reviewed. Current Facility-Administered Medications Medication Dose Route Frequency Last Rate Last Admin lidocaine (LIDODERM) 5 % (700 mg/patch) patch 1 Patch 1 Patch Topical DAILY 1 Patch at 09/30/20 0952 D5W 0.45% NaCl (1/2NS) IV infusion 1,000 mL 1,000 mL IV Infusion CONTINUOUS 150 mL/hr at 10/01/20 0102 1,000 mL at 10/01/20 0102 dextrose 50 % in water (D50W) injection 25 mL 25 mL Slow IV Push PRN - SEE INSTRUCTIONS glucagon (GLUCAGEN DIAGNOSTIC KIT) injection 1 mg 1 mg Intramuscular PRN phytonadione (VITAMIN K) 10 mg in NaCl 0.9% (NS) piggyback 10 mg IV Piggyback DAILY 10 mg at 09/30/20 1626 enoxaparin (LOVENOX) injection 40 mg 40 mg Subcutaneous DAILY 40 mg at 09/30/20 0950 ondansetron (ZOFRAN (PF)) injection 4 mg 4 mg Slow IV Push Q6HPRN 4 mg at 09/30/20 0231 valproate (DEPACON) 750 mg in D5W piggyback 750 mg IV Piggyback DAILY 750 mg at 09/30/20 0944 INE CLOTHING REPLACER Associated attestation - Erwin Pena MD - 10/02/2020 1:03 PM CSTI personally examined the patient on 10/01/[address] Roque's resident note as written,including any changes or additions that the resident may have made to [place]'s medical student note. I actively participated in the decision making process. Please see the resident's note for additional details. Pt transferred from [facility] team, admitted for achalasia and elevated LFTs. Pt continues to be noncompliant with FLD, vomiting after eating solids. His LFTS again trended up after leaving room last night, have concern that he was doing illicit drugs, Utox pending. Again, had long conversation with patient about need to be compliant with diet, given risk of impaction and aspiration. If LFTs improve could potentially get EGD w/manometry and NG placement Tuesday. Gianni Dumont MD - 09/30/2020 8:45 PM CST Eben Progress/Acceptance Note Date of Service: 09/30/2020 20:45 Chief Complaint: "blacking out" HOSPITAL COURSE Tahir Sanches Jr. is a 35 year old male with PMH of bipolar 1, schizophrenia and achalazia. Paitient initially admitted with thought of esophageal rupture at the GE junction due to CT findings of possible rupture at GE junction. Patient previously admitted 09/12 for similar symptoms but EGD was differed due to UDS positive for cocaine. On admission, labs significant for hyperkalemia, hypoglycemia and acute liver failure with LFTs in the 1000's. Patient made NPO and UGI series was negative foresophageal leak. Confirmed Achalasia with barium swallow. GI Consulted for evaluation of acute liver failure. Previous hepatitis etiology work up unremarkable, sending further infectious and autoimmunemarkers. Likely due to ischemic shock liver due to syncopal episode vs admission to recent cocaine use. Improving SONDRA with fluids. Patient tolerating full liquids with occasional puree solids currently. On the floor, patient continue to receive IVF with continual monitoring, noted to have low Phos andMag and aggressively repleted. Transferred to Juan's team for further care SUBJECTIVE: Patient doing okay tonight only c/o hunger and mild lower abdominal pain. Try to drink liquids earlytoday however developed n/v. Feels like he is able to keep solids down better than liquids. Has around 40 lb weight loss over past 3 months which is when these GI symptoms first started. Lives with hisparents at home. Says last used cocaine a few weeks ago and sometimes use marijuana. Denied any f/c,CP, SOB, melena, hematochezia. Last BM was this AM. Having R arm pain/swelling from where IV infiltrated earlier in the day. PHYSICAL EXAM: Vitals: 09/30/20 0820 09/30/20 1147 09/30/20 1600 09/30/20 1611 BP: (!) 141/95 (!) 134/96 (!) 125/92 Pulse: 68 78 73 Resp: Temp: 35.8 C (96.4 F) 35.2 C (95.3 F) 35.8 C (96.4 F) TempSrc: Oral Oral Oral SpO2: 100% 90% 100% Weight: 49.8 kg (109 lb 12.6 oz) Intake/Output Summary (Last 24 hours) at 09/30/20202044 Last data filed at 09/30/2020 1611 Gross per 24 hour Intake Output 2600 ml Net -2600 ml General: ill-appearing, cachectic, temporal wasting, appears older than stated age Lungs: clear to auscultation bilaterally Cardio: S1, S2 normal; no murmurs, rubs or gallops Abdomen: flat abdomen with TTP in lower abdomen; no RUQ or epigastric tenderness on palpation Extremities: Pulses 2+, slight R arm swelling Skin: Pale Neuro: no focal deficits LABS/IMAGING - reviewed, pertinent results as below: 09/20: Sars COV2: Rapid: Positive 09/26: Rapid Negative 09/27 NAAT: Negative CoV IgG: Positive Hep B Core IgM: Negative HBcAB Total: Reactive HBcIGM: Negative HAV Ab IgM: Negative HIV: Negative with CD4 of 833 Alk P: 773-> 792 ALT: 439-> 463 AST: 304-> 408 TSH: 0.67 T4: 1.29 T3: 1.79 Phos-1.5 Mag-1.7 K: 3.4 Pre-Albumin: 8.9 ASSESSMENT/PLAN Tahir Reyes Ancelmo Frye is a 35 year old male admitted to the hospital with: Achalasia Dysphagia Acute Liver Failure Acute Kidney Injury- resolved Hyperkalemia - resolved Hypoglycemia - resolved Severe Protein Calorie Malnutrition Risk For Refeeding Syndrome Hypophosphatemia Hypomagnesemia Paitient initially admitted with thought of esophageal rupture at the GE junction due to CT findingsof possible rupture at GE junction. Patient previously admitted 09/12 for similar symptoms but EGD was differed due to UDS positive for cocaine. On admission, labs significant for hyperkalemia and acute liver failure with LFTs in the 1000's. Patient made NPO and UGI series was negative for esophageal leak. Confirmed Achalasia with barium swallow. Previous hepatitis etiology work up unremarkable, sending further infectious and autoimmune markers. Likely due to ischemic shock liver due to syncopal episode vs admission to recent cocaine use. Improving SONDRA with fluids. Intermittently tolerating diet; will c/w full liquids for now however may need tube feeds if unable to tolerate. GI deferring EGD/manometry for now given elevated liver enzymes and recent COVID +. -Tele -CBC, BMP, LFTs, INR -D5 1/2 NS at 150cc/hr; received multiple banana bags already so will d/c -Monitor urine output to ensure adequate hydration -Continue to monitor glucose levels q4 as patient has been recurrently hypoglycemic. D50 available prn -Aggressively replete K, Mg and Phos. -Appreciate GI recs: -Pending infectious and autoimmune workup -Vitamin K 10mg daily for 3 days (D2/3) -Defer EGD Manometry during acute phase of liver injury. GI wanting to wait 20 days from positive test prior to procedure. -Discussed placing NG tube to due inadequate feeding with liquids alone however last resort per GI.May be difficult to place given achalasia as well; may need to consider PEG if needed -Patient persistent on wanting to try more solid diet; will do regular with pureed texture. Patient able to tolerate puree with monitoring by nursing. COVID 19 Infection Patient with previous COVID + on 09/20 at [facility] prior to transfer but has been negative since he's been here. Noted positive for IgG. -Patient continues to deny COVID symptoms. -Per COVID Interpretation dated 09/27: "While this patient had positive test results in the past, most recently this patient has tested negative on two or more consecutive occasions for the SARS-CoV-2 virus that causes COVID-19 illness. This most likely indicates that the patient does not have an active infection with the SARS-CoV-2 virus, especially if these recent negative tests coincide with the patient's current presentation." -COVID precautions removed by epidemiology Bipolar 1 and Schizophrenia Patient with previously noted psychiatric disorder. Currently calm and stable. -Restart home Valproate IV as patient patient with poor tolerance to PO PAIN: Uncontrolled Tramadol Prophylaxis: DVT- enoxaparin Stress Ulcer: pantoprazole Code Status: not addressed: presumed full Disposition Anticipated Discharge Date : 10/02/2020 Barriers to Discharge: IV medications, stabalizing po intake Gianni Dumont PGY-3 Internal Medicine END OF DAILY PROGRESS NOTE CURRENT MEDICATIONS - reviewed. Current Facility-Administered Medications Medication Dose Route Frequency Last Rate Last Admin lidocaine (LIDODERM) 5 % (700 mg/patch) patch 1 Patch 1 Patch Topical DAILY 1 Patch at 09/30/20 0952 acetaminophen (TYLENOL) tablet 325 mg 325 mg Oral Q6HPRN 325 mg at 09/29/20 2032 D5W 0.45% NaCl (1/2NS) IV infusion 1,000 mL 1,000 mL IV Infusion CONTINUOUS 150 mL/hr at 09/30/20 0233 1,000 mL at 09/30/20 0233 dextrose 50 % in water (D50W) injection 25 mL 25 mL Slow IV Push PRN - SEE INSTRUCTIONS glucagon (GLUCAGEN DIAGNOSTIC KIT) injection 1 mg 1 mg Intramuscular PRN phytonadione (VITAMIN K) 10 mg in NaCl 0.9% (NS) piggyback 10 mg IV Piggyback DAILY 10 mg at 09/30/20 1626 Sliding Scale Insulin - Aspart (NOVOLOG) + Fsbg Testing Subcutaneous TID MEALS+HS Stopped at111/29/19 0800 thiamine (VITAMIN B1) 100 mg, foLIC acid (FOLATE) 1 mg, multivitamin adult (INFUVITE ADULT) 3,300 unit- 150 mcg/10 mL 10 mL in D5W 0.45% NaCl (1/2NS) IV Solution IV Infusion DAILY 150 mL/hr at 09/30/20 0944 New Bag at 09/30/20 0944 enoxaparin (LOVENOX) injection 40 mg 40 mg Subcutaneous DAILY 40 mg at 09/30/20 0950 ondansetron (ZOFRAN (PF)) injection 4 mg 4 mg Slow IV Push Q6HPRN 4 mg at 09/30/20 0231 valproate (DEPACON) 750 mg in D5W piggyback 750 mg IV Piggyback DAILY 750 mg at 09/30/20 0944 ohn, Tyrone Stack MD - 09/30/2020 5:43 PM CST Brief Gastroenterology and Hepatology Progress Note Date of Service: 09/30/20 Patient has been tolerating liquids on his diet at this time, but cannot tolerate any solids as he does have likely achalasia. Labs IgG 741 LOYD Negative HCV PCR Pending HBV PCR Pending 09/27/2020 19:39 09/28/2020 02:31 09/28/2020 10:00 09/29/2020 05:34 09/30/2020 02:16 ALK PHOS 848 (H) 861 (H) 773 (H) 773 (H) 792 (H) ALTv 542 (H) 515 (H) 483 (H) 439 (H) 463 (H) AST(SGOT) 693 (H) 561 (H) 434 (H) 304 (H) 408 (H) ASSESSMENT/PLAN Tahir Sanches Jr. is a 35 year old malewith PMH as listed above, GI consulted for acute liver injury and dysphagia. Acute Liver Injury Dysphagia COVID + Severe protein calorie malnutrition Acute liver injury most likely due to ischemic event (syncopal event, recent IV cocaine use), This is supportive by continued improvement in his liver chemistries. His EGD/manometry are non emergent and will be deferred until acute hepatitis improved - INR,CBC,CMPdaily -please orderHepatitisAIgM,HBV core IgG and IgM - close monitoring of mental status - ok with CLD from GI perspective - EGD/manometry deferred for now; we will need to wait at least 20 days from positive test (with 10 days of no symptoms), and need to additionally wait for his acute liver enzyme elevation to normalizebefore any endoscopic evaluation can take place. - he will need to be optimized on a liquid nutrition intake, including Ensure supplementation to getenough calories to support on clears. Supplemental tube feeds should only be started as a last resort. - calorie counts with each meals Patient was discussed with Dr. Mcgowan. GI will continue to follow along. Please call with questions. Tyrone Mendoza MD PGY-4 Gastroenterology and Hepatology Contact Information Available on [facility] INE CLOTHING REPLACER Jacky Pascual RN - 09/30/2020 12:38 PM CSTCare Management Continued Stay Assessment LOS Day: 4 Estimated /Planned Discharge Date: reeval 10/02/20 ARCHANA MACIAS male 35 year old Date CM/SW last Face to Face completed with patient/family: 09/29/20 Funding source: Self Pay PCP:PATIENT DOES NOT HAVE A PCP Patient/Family/MPOA/Caregiver Engaged with Transitional Care Plan: yes Patient/Family/MPOA/Caregiver concurs with proposed discharge plan: yes Name, Relationship to Patient and contact number of individual acting on behalf of the patient: patient Shantel Sanches (Mother) [phone]; Tristan Sanches (Father) [phone] Chief Complaint/Admitting Dx:esophageal rupture Hospital Problems: Abdominal pain Summary of hospital course: Tahir Sanches Jr. is a 35 year old male with PMH of bipolar 1, schizophrenia and achalazia. Paitient initially admitted with thought of esophageal rupture at the GE junction due to CT findings of possible rupture at GE junction. Patient previously admitted 09/12 for similar symptoms but EGD was differed due to UDS positive for cocaine. On admission, labs significant for hyperkalemia, hypoglycemia and acute liver failure with LFTs in the 1000's. Patient made NPO and UGI series was negative foresophageal leak. Confirmed Achalasia with barium swallow. GI Consulted for evaluation of acute liver failure. Previous hepatitis etiology work up unremarkable, sending further infectious and autoimmunemarkers. Likely due to ischemic shock liver due to syncopal episode vs admission to recent cocaine use. Improving SONDRA with fluids. Patient tolerating full liquids with occasional puree solids currently. On the floor, patient continue to receive IVF with continual monitoring, noted to have low Phos andMag and aggressively repleted. CM/SW Interventions/Resources provided: 09/29 - Initial screening and initial discharge plan established, Community resources utilized: [employer] [facility] Resources Fact Sheet;[facility] Indigent Health Care Program;Prescription Assistance Program(s);Substance Abuse Treatment Resources;Other, referred to vendors for unfunded assistance, Marketplace Open Enrollment; resources CM/SW Interventions/Resources still needed: Pending progression of care Anticipated Discharge Destination: Home If DC to home, who will support patient: mother and father Anticipated DME needs: TBD Referrals sent: no If no, why/when will referral be sent:: TBD Has patient been accepted: not applicable Revised plan if not accepted: What is the clinical care happening right now that must be done in the hospital and only the hospital: Anticipated Discharge Date : 10/02/2020 Barriers to Discharge: IV medications, stabalizing po intake -Advance diet to full liquids, double portions. Patient able to tolerate puree with monitoring by nursing. -Continue to monitor BMP q24 -Daily CBC, LFT and Pt/INR -TSH normal with low T3, likely due to malnutrition and low protein -Continue to trend LFTs, improving daily. -D5 1/2 NS at 150cc/hr -Monitor urine output to ensure adequate hydration -Continue to monitor glucose levels q4 as patient has been recurrently hypoglycemic. D50 available prn -Aggressively replete K, Mg and Phos. -Start tele to monitor cardiac status since Refeeding Syndrome is a concern. -Appreciate GI recs: -Pending infectious and autoimmune workup -Vitamin K 10mg daily for 3 days (D2/3) -Defer EGD Manometry during acute phase of liver injury. GI wanting to wait 30 days from positive test prior to procedure. -Discussed placing NG tube to due inadequate feeding with liquids alone. 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 Would attempt once at bedside, thenconsider IR referral. Discussed enteral feeding Plan with Dietary. JOSE LUIS Masters, RN Machinery [email or web address] [email or web address] O:[phone] F:[phone] ulia Wells - 09/30/2020 11:42 AM CST Medical Nutrition Therapy Progress Note Subjective: Spoke with MD about post-pyloric DHT placement. Per MD, he is experiencing nausea with almost all POintake and is experiencing occasional vomiting. Discussed monitoring for refeeding syndrome due to hypophosphatemia - recommend initiating TF at low rate (10-15 mL//hr) and advancing slowly (10-20 mL every 8- 12 hours) until goal rate reached and continue aggressive repletion of phosphorus and magnesium. TF recommendations below. Spoke with patient who confirms nausea and weight loss of 40 lbs x 2 month. He has severe muscle wasting to temporal region and severe fat wasting to buccal and orbital regions. He reports similar muscle and fat wasting to arms and legs. He is agreeable to the initiation of tube feed. Patient Active Problem List Diagnosis Dysphagia Hypokalemia Bipolar 1 disorder GERD (gastroesophageal reflux disease) Esophageal dysphagia E46 Unspecified severe protein-calorie malnutrition Abdominal pain Medications: Current Facility-Administered Medications: potassium phosphate 44 mEq in NaCl 0.9% (NS) 250 mL piggyback, 44 mEq, IV Piggyback, ONCE, Tato Gallegos DO lidocaine (LIDODERM) 5 % (700 mg/patch) patch 1 Patch, 1 Patch, Topical, DAILY, Tato Gallegos DO, 1 Patch at 09/30/20 0952 acetaminophen (TYLENOL) tablet 325 mg, 325 mg, Oral, Q6HPRN, Laure Alejandre MD, 325 mg at111/30/19 203 D5W 0.45% NaCl (1/2NS) IV infusion 1,000 mL, 1,000 mL, IV Infusion, CONTINUOUS, Tato Gallegos DO, Last Rate: 150 mL/hr at 09/30/20 0233, 1,000 mL at 09/30/20 0233 dextrose 50 % in water (D50W) injection 25 mL, 25 mL, Slow IV Push, PRN - SEE INSTRUCTIONS, Rolan Mckinney MD glucagon (GLUCAGEN DIAGNOSTIC KIT) injection 1 mg, 1 mg, Intramuscular, PRN, Rolan Mckinney MD phytonadione (VITAMIN K) 10 mg in NaCl 0.9% (NS) piggyback, 10 mg, IV Piggyback, DAILY, Tato Gallegos DO, 10 mg at 09/29/20 1107 Sliding Scale Insulin - Aspart (NOVOLOG) + Fsbg Testing, , Subcutaneous, TID MEALS+HS, Rolan Mckinney MD, Stopped at 09/28/20 0800 thiamine (VITAMIN B1) 100 mg, foLIC acid (FOLATE) 1 mg, multivitamin adult (INFUVITE ADULT) 3,300 unit- 150 mcg/10 mL 10 mL in D5W 0.45% NaCl (1/2NS) IV Solution, , IV Infusion, DAILY, Rolan Mckinney MD, Last Rate: 150 mL/hr at 09/30/20 0944, New Bag at 09/30/20 0944 enoxaparin (LOVENOX) injection 40 mg, 40 mg, Subcutaneous, DAILY, Naty Francois MD, 40 mg at 09/30/20 0950 ondansetron (ZOFRAN (PF)) injection 4 mg, 4 mg, Slow IV Push, Q6HPRN, Naty Francois MD, 4 mg at 09/30/20 0231 valproate (DEPACON) 750 mg in D5W piggyback, 750 mg, IV Piggyback, DAILY, Naty Francois MD, 750 mg at 09/30/20 0944 Lab and Medical Test Results: 09/28/2020 13:22 09/29/2020 05:34 09/30/2020 02:16 WBC x10^3 8.01 7.67 7.11 RBC x10^6 3.79 (L) 3.95 (L) 4.43 HGB 10.8 (L) 11.4 (L) 12.6 HCT 33.4 (L) 34.7 (L) 38.3 (L) MCV 88.1 87.8 86.5 MCH 28.5 28.9 28.4 MCHC 32.3 32.9 32.9 09/28/2020 10:00 09/28/2020 13:22 09/29/2020 05:34 09/30/2020 02:16 NA 140 139 136 K 5.2 (H) 5.3 (H) 4.9 3.7 CL 111 (H) 104 101 CO2 TOTAL 28 32 (H) 31 AGAP 1 (L) 3 4 BUN 56 (H) 40 (H) 21 GLUCOSE 99 100 63 (L) CREATININE 1.11 1.10 0.68 eGFR CALCULATION () 90.8 91.8 159.9 TOTAL BILI 3.1 (H) 2.7 (H) 2.3 (H) BILI UNCON 2.7 (H) BILI CONJ 0.0 CALCIUM 7.4 (L) 7.4 (L) 7.4 (L) PHOSPHORUS 2.6 2.6 1.5 (L) MAGNESIUM 2.0 1.7 T PROTEIN 6.2 (L) 6.4 7.2 ALBUMIN 2.8 (L) 2.9 (L) 3.4 (L) 09/28/2020 10:00 09/29/2020 05:34 09/30/2020 02:16 ALK PHOS 773 (H) 773 (H) 792 (H) ALTv 483 (H) 439 (H) 463 (H) AST(SGOT) 434 (H) 304 (H) 408 (H) Intake/Output Summary (Last 24 hours) at 09/30/2020 1142 Last data filed at 09/30/2020 0045 Gross per 24 hour Intake Output 1000 ml Net -1000 ml Weight History: Wt Readings from Last 10 Encounters: 09/29/20 49.8 kg (109 lb 12.6 oz) 09/20/20 49.9 kg (110 lb) 08/23/20 49.9 kg (110 lb) 05/02/20 63.5 kg (140 lb) 01/10/19 72.6 kg (160 lb) Inflammatory Markers: N/A Current Dietary Order(s): Nepro (1.8 kcal/mL, low electrolyte) Regular Diet; Texture: Pureed. Please send breakfast tray now Estimated Daily Nutritional Needs: Calories: 3334-8130 kcal/day = 35-40 kcal/kg current wt = 27-31 kcal/kg IBW Protein: 52-78 g/day = 1-1.6 g/kg current wt = 0.8-1.2 g/kg IBW Fluid: 7373-6359 mL/day or per MD; adjust per acute needs Nutrition Diagnosis: Severe protein calorie malnutrition related to inadequate oral intake r/t achlasia as evidenced by 26.8% weight loss x 2 months, 35.5% weight loss x 1 year, severe muscle wasting to temporal region, and severe fat wasting to buccal and orbital regions. Interventions: Recommend enteral nutrition with Jevity 1.2 at goal of 65 mL/hr ? EN will provide 1871 kcal, 87 g protein, 1258 ml water ? Initiate at 10-20mL/hr and advance rate 10-20mL/hr every 8-12 hours If receiving IVF, recommend a minimum of 30 mL water flush Q4H to contribute to free water needs and tube patency maintenance. If no IVF, recommend 100 mL water flush Q4H to help meet fluid needs o (Tf+flushes will provide 1858 mL water) Goals: 1. Meet >75% of estimated nutrient needs with EN. 2. Weight gain (1-2 lbs per week until IBW reached) Monitoring and Evaluation: A registered dietitian will follow up by 10/03. Please call with any questions or concerns, thank-you. D/C Planning: Undetermined at this time. Mary Wells MS, RD, LD Clinical Dietitian Office: [id number] aylJustina mckeon MD - 09/30/2020 9:50 AM MACHINE CLOTHING REPLACER.BRIEF PROGRESS NOTE CARDIOTHORACIC SURGERY 09/30/20 Tahir Sanches Jr. [id number] GI recommendations reviewed. Manometry/EGD to be done 30d after COVID positive test. Will not be able to make formal surgical recommendations until then. Recommend remaining on a liquid/pureed diet until testing. Will schedule outpatient follow up after testing completed. Thank you for this consult. For questions please contact the CT Surgery pager: Justina Olivarez MD Chief Cardiothoracic Surgery Fellow 09/30/20 9:50 AM INE CLOTHING REPLACER Associated attestation - Delvis Garcia MD - 09/30/2020 11:25 AM CSTAfter discussion with the resident, I examined this patient. I agree with the resident's note as written. Azul Snyder, ICP - 09/30/2020 8:14 AM CSTDiscontinuation of Isolation Precautions for Patients with COVID-19 Infection Control and Healthcare Epidemiology Tahir Sanches Jr. medical record has been reviewed by [facility] and meets criteria for removal of COVID-19 isolation precautions. Patient should continue to wear a surgical mask following COVID-19 isolation removal unless they have a condition that contraindicates use. Per hospital policy, all staff and patients should be masked and maintain a distance of six feet when able. Additionally, eye protection and N95 respirators are required when performing aerosol-generating procedures. Confirmed COVID-19 patients meeting the following CDC criteria may be removed from isolation precautions after 10 DAYS: ? Patients with mild to moderate illness or who are asymptomatic and are NOT severely immunocompromised ? At least 10 days have passed since symptoms first appeared (or since first positive test, whichever is longer) ? At least 24 hours have passed since last fever without the use of fever- reducing medications ? Symptoms (e.g., cough, shortness of breath) have improved A symptom-based strategy is preferred over a test-based strategy for isolation precaution removal due to prolonged detection of SARS-CoV-2 genomic material by molecular testing. If you have any questions, please call [facility] Infection Control and Healthcare Epidemiology at . Reference: https://www.cdc.gov/coronavirus/2019-ncov/hcp/sawwkazxfqh-akosruytxyyq-bmkufrjt. html Tato Colon DO - 09/30/2020 6:53 AM CST [facility] Transfer Note Date of Service: 09/30/2020 06:53 Chief Complaint: "blacking out" HOSPITAL COURSE Tahir Sanches Jr. is a 35 year old male with PMH of bipolar 1, schizophrenia and achalazia. Paitient initially admitted with thought of esophageal rupture at the GE junction due to CT findings of possible rupture at GE junction. Patient previously admitted 09/12 for similar symptoms but EGD was differed due to UDS positive for cocaine. On admission, labs significant for hyperkalemia, hypoglycemia and acute liver failure with LFTs in the 1000's. Patient made NPO and UGI series was negative foresophageal leak. Confirmed Achalasia with barium swallow. GI Consulted for evaluation of acute liver failure. Previous hepatitis etiology work up unremarkable, sending further infectious and autoimmunemarkers. Likely due to ischemic shock liver due to syncopal episode vs admission to recent cocaine use. Improving SONDRA with fluids. Patient tolerating full liquids with occasional puree solids currently. On the floor, patient continue to receive IVF with continual monitoring, noted to have low Phos andMag and aggressively repleted. SUBJECTIVE: Patient states he's still really hungry and that a full liquid diet is not sufficient. Patient wanting solid food, willing to try puree. Denies nausea/vomiting over the past 24 hours. Feel like hes a little stronger today. PHYSICAL EXAM: Vitals: 09/29/20 1400 09/29/20 1628 09/29/20 1950 09/30/20 0231 BP: 123/77 120/74 104/85 Pulse: 67 65 52 Resp: 18 20 18 Temp: 34.4 C (94 F) 36.1 C (97 F) 36.3 C (97.3 F) TempSrc: Oral Oral Tympanic SpO2: 100% 100% 100% Weight: 49.8 kg (109 lb 12.6 oz) Intake/Output Summary (Last 24 hours) at 09/30/2020 0653 Last data filed at 09/30/2020 0045 Gross per 24 hour Intake Output 1000 ml Net -1000 ml General: ill-appearing, cachectic, temporal wasting, appears older than stated age Lungs: clear to auscultation bilaterally Cardio: S1, S2 normal; no murmurs, rubs or gallops Abdomen: flat abdomen with diffuse tenderness Extremities: Pulses 2+, slight ;arm swelling Skin: Pale Neuro: no focal deficits LABS/IMAGING - reviewed, pertinent results as below: 09/20: Sars COV2: Rapid: Positive 09/26: Rapid Negative 09/27 NAAT: Negative CoV IgG: Positive Hep B Core IgM: Negative HBcAB Total: Reactive HBcIGM: Negative HAV Ab IgM: Negative HIV: Negative with CD4 of 833 Alk P: 773-> 792 ALT: 439-> 463 AST: 304-> 408 TSH: 0.67 T4: 1.29 T3: 1.79 Phos-1.5 Mag-1.7 K: 3.4 Pre-Albumin: 8.9 ASSESSMENT/PLAN Tahir Eric Sanches Jr. is a 35 year old male admitted to the hospital with: Achalasia Dysphagia Acute Liver Failure Acute Kidney Injury Hyperkalemia Hypoglycemia Severe Protein Calorie Malnutrition Risk For Refeeding Syndrome Hypophosphatemia Hypomagnesemia Paitient initially admitted with thought of esophageal rupture at the GE junction due to CT findingsof possible rupture at GE junction. Patient previously admitted 09/12 for similar symptoms but EGD was differed due to UDS positive for cocaine. On admission, labs significant for hyperkalemia and acute liver failure with LFTs in the 1000's. Patient made NPO and UGI series was negative for esophageal leak. Confirmed Achalasia with barium swallow. GI Consulted for evaluation of acute liver failure. Previous hepatitis etiology work up unremarkable, sending further infectious and autoimmune markers. Likely due to ischemic shock liver due to syncopal episode vs admission to recent cocaine use. Improving SONDRA with fluids. Patient tolerating full liquids with occasional puree solids currently. Continue to closely monitor electrolytes. -Advance diet to full liquids, double portions. Patient able to tolerate puree with monitoring by nursing. -Continue to monitor BMP q24 -Daily CBC, LFT and Pt/INR -TSH normal with low T3, likely due to malnutrition and low protein -Continue to trend LFTs, improving daily. -D5 1/2 NS at 150cc/hr -Monitor urine output to ensure adequate hydration -Continue to monitor glucose levels q4 as patient has been recurrently hypoglycemic. D50 available prn -Aggressively replete K, Mg and Phos. -Start tele to monitor cardiac status since Refeeding Syndrome is a concern. -Appreciate GI recs: -Pending infectious and autoimmune workup -Vitamin K 10mg daily for 3 days (D2/3) -Defer EGD Manometry during acute phase of liver injury. GI wanting to wait 30 days from positive test prior to procedure. -Discussed placing NG tube to due inadequate feeding with liquids alone. 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 Would attempt once at bedside, then consider IR referral. Discussed enteral feeding Plan with Dietary. COVID 19 Infection Patient with previous COVID + on 09/20 at [facility] prior to transfer but has been negative since he's been here. Noted positive for IgG. -Patient continues to deny COVID symptoms. -Per COVID Interpretation dated 09/27: "While this patient had positive test results in the past, most recently this patient has tested negative on two or more consecutive occasions for the SARS-CoV-2 virus that causes COVID-19 illness. This most likely indicates that the patient does not have an active infection with the SARS-CoV-2 virus, especially if these recent negative tests coincide with the patient's current presentation." -COVID precautions removed by epidemiology. Pending transfer to non-covid team Bipolar 1 and Schizophrenia Patient with previously noted psychiatric disorder. Currently calm and stable. -Restart home Valproate IV as patient is npo for medications. PAIN: Uncontrolled Tylenol, [place] and Morphine Prophylaxis: DVT- enoxaparin Stress Ulcer: pantoprazole Code Status: not addressed: presumed full Disposition Anticipated Discharge Date : 10/02/2020 Barriers to Discharge: IV medications, stabalizing po intake 09/30/2020 10:20 AM Tato Gallegos DO Internal Medicine PGY-1 Pager: [phone] END OF DAILY PROGRESS NOTE CURRENT MEDICATIONS - reviewed. Current Facility-Administered Medications Medication Dose Route Frequency Last Rate Last Admin magnesium sulfate in water 2 gram/50 mL (4 %) infusion 2 g 2 g IV Piggyback ONCE potassium phosphate 44 mEq in NaCl 0.9% (NS) 250 mL piggyback 44 mEq IV Piggyback ONCE lidocaine (LIDODERM) 5 % (700 mg/patch) patch 1 Patch 1 Patch Topical DAILY acetaminophen (TYLENOL) tablet 325 mg 325 mg Oral Q6HPRN 325 mg at 09/29/202031 D5W 0.45% NaCl (1/2NS) IV infusion 1,000 mL 1,000 mL IV Infusion CONTINUOUS 150 mL/hr at 09/30/20 0233 1,000 mL at 09/30/20 0233 dextrose 50 % in water (D50W) injection 25 mL 25 mL Slow IV Push PRN - SEE INSTRUCTIONS glucagon (GLUCAGEN DIAGNOSTIC KIT) injection 1 mg 1 mg Intramuscular PRN phytonadione (VITAMIN K) 10 mg in NaCl 0.9% (NS) piggyback 10 mg IV Piggyback DAILY 10 mg at 09/29/20 1107 Sliding Scale Insulin - Aspart (NOVOLOG) + Fsbg Testing Subcutaneous TID MEALS+HS Stopped at111/29/19 0800 thiamine (VITAMIN B1) 100 mg, foLIC acid (FOLATE) 1 mg, multivitamin adult (INFUVITE ADULT) 3,300 unit- 150 mcg/10 mL 10 mL in D5W 0.45% NaCl (1/2NS) IV Solution IV Infusion DAILY 150 mL/hr at 09/29/20 1107 New Bag at 09/29/20 1107 enoxaparin (LOVENOX) injection 40 mg 40 mg Subcutaneous DAILY 40 mg at 09/29/20 0918 ondansetron (ZOFRAN (PF)) injection 4 mg 4 mg Slow IV Push Q6HPRN 4 mg at 09/30/20 0231 valproate (DEPACON) 750 mg in D5W piggyback 750 mg IV Piggyback DAILY 750 mg at 09/29/20 0918 INE CLOTHING REPLACER Associated attestation - Tony Forbes MD - 09/30/2020 3:46 PM CSTI personally evaluated the patient on the date of service as stated in this note and agree with Dr. Gallegos's resident note as written. Continues to desire to eat. Advancing diet slowly. Transaminases remain elevated. I actively participated in the decision-making process. Please see the resident's note for additional details.Irene Koo LMSW - 09/29/2020 4:15 PM CSTSocial Worker Note Pt released from [facility]. [facility] requesting referral to Vendor for benefits. Irene Koo LMSW [employer] Care Management O: [phone] [email or web address] Irene Dickinson LMSW - 09/29/2020 3:08 PM CSTCare Management Social Functional Assessment Patient Name: Tahir Sanches Jr. Age: [age] year old Sex: male Patient's Previous Admission Date at [facility]: 08/24/2020 Current diagnosis and co-morbidities: esophageal rupture Readmission Questions: Was patient discharged from any acute care hospital within the last 30 days: Yes Were all questions regarding previous illness/diagnosis answered prior to discharge: Yes Did you have any difficulties with your discharge instructions: No Were you able to go to your follow-up discharge appointments: Yes Any difficulties after discharge with medications: No Any difficulties after discharge with transportation: No Any difficulties after discharge with physical conditions, support, or other limitations?: No Did patient refuse services that were recommended on the previous admission: No Was patient non-compliant with the previously recommended treatment: No Social Functional Assessment: Primary language spoken/preferred: Occitan Mental Status: Alert & Oriented to Person,Place & Time Information given by: Self Patient's support system: Parent Name and number of support system: Shantel Sanches (Mother) [phone]; Tristan Sanches Sr. (Father) [phone] Primary Recreation Attendant Supervisor: Self MPOA: No Living Arrangement: Home Address of living arrangement : [address] [place] [address] Persons living in home: Self;Same as support system Baseline functional status- ambulation: Independent Functional status-baseline personal care: Independent Baseline functional status- driving: Independent Baseline functional status- grocery shopping: Independent Functional status-baseline housekeeping: Independent Functional status-baseline meal prep: Independent Current functional status same as prior: Yes Do you have a PCP?: No Refered to: [facility] Agency: No Provider Services: No DME Company: No Equipment: None Hemodialysis: No Community resources utilized: [facility] [place] Social Fact Sheet;[facility] [facility] Indigent Health Care Program;Prescription Assistance Program(s);Substance Abuse Treatment Resources;Other Other community resources utilized: [employer]; resources Funding Resources: [facility] [facility];Self Pay Prescription coverage plan: Self Pay Pharmacy where meds are filled: Other Other pharmacy: [facility] Anticipated services prior to disharge: Continue Medical Eval;Reassess prior to discharge Expected mode of discharge transportation: Other Other expected mode of transportation: Taxi Additional info required for discharge planning: Pending medical evaluation Recommended discharge plan: Home SFA Complete: Social Functional Assessment complete: Yes Alcohol Use Screening (AUDIT-C) How often do you have a drink containing alcohol?: Never SCORE: 0 Did patient elect to have resources provided: No Any issues or concerns with obtaining/affording your medications at home: no. 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 Role of Care Management explained. Pt reported he was admitted to [facility] from [facility]. Pt stated was released from Detention. Pt reportedly resides with his parents. Pt reported a MH history of being diagnosed with Schizophrenia, Bipolar Disorder, and Depression. Pt stated has been receiving MH care from [facility] in [place], [place]. Pt reported a Substance Abuse history of using cocaine and marijuana. Pt stated the last date he used cocaine was about 3 weeks ago. SW provided [employer] Open Enrollment, [facility] [place] Fact Sheet, Good Rx card, and SA resources to Nurse to provide to patient. Irene Koo LMSW [employer] Care Management O: [phone] [email or web address], Tyrone Stack MD - 09/29/2020 1:28 PM CST TELEHEALTH NOTE Verbal consent obtained from Patient: Tahir Sanches due to the COVID- 19 pandemic for telehealth services provided below. Communication with patient was conducted via Video Call. Location of Patient: [facility] Location of Provider: [facility] Date of Service: 09/29/2020 Gastroenterology and Hepatology Progress Note Date of Service: 09/29/2020 13:29 Chief Complaint: elevated liver enzymes SUBJECTIVE/ MAJOR EVENTS: Patient sleeping this morning. Not having any issues with tolerating full liquid diet, and is hungrywanting to eat more. ROS: Constitutional: No weakness HEENT: No dry mouth CV: No chest pain Resp: No shortness of breath GI: no abdominal pain PHYSICAL EXAM: Temp: [34.2 C (93.5 F)-36.4 C (97.6 F)] Heart Rate (monitor): [56-78] Pulse: [48-78] Resp: [16-20] BP: (102-144)/(73-94) MAP (mmHg): [83-110] Intake/Output Summary (Last 24 hours) at 09/29/2020 1329 Last data filed at 09/28/2020 1735 Gross per 24 hour Intake 2155 ml Output Net 2155 ml General: Patient is alert and oriented x4, No apparent distress. Please reference primary team physical exam for more details. LABS/IMAGING - REVIEWED 09/27/2020 15:45 09/27/2020 19:39 09/28/2020 02:31 09/28/2020 10:00 09/29/2020 05:34 ALK PHOS 1,095 (H) 848 (H) 861 (H) 773 (H) 773 (H) ALTv 670 (H) 542 (H) 515 (H) 483 (H) 439 (H) AST(SGOT) 898 (H) 693 (H) 561 (H) 434 (H) 304 (H) IgG 741 CURRENT MEDICATIONS - REVIEWED ASSESSMENT/PLAN Tahir Sanches Jr. is a 35 year old male with PMH as listed above, GI consulted for acute liver injury and dysphagia. Acute Liver Injury Dysphagia COVID + Severe protein calorie malnutrition Acute liver injury most likely due to ischemic event (syncopal event, recent IV cocaine use), This is supportive by continued improvement in his liver chemistries. His EGD/manometry are non emergent and will be deferred until acute hepatitis improved - INR,CBC,CMPdaily -please orderHepatitisAIgM,HBV core IgG and IgM, HBV PCR,HCV PCR ,LOYD -IV vitamin K 10 mg dailyx3 days - close monitoring of mental status - ok with CLD from GI perspective - EGD/manometry deferred for now; we will need to wait at least 30 days from positive test, and needto additionally wait for his acute liver enzyme elevation to normalize before any endoscopic evaluation can take place. Patient was seen and discussed with Dr. Mcgowan. Please call with questions. GI will continue to follow. Tyrone Mendoza MD PGY-4 Gastroenterology and Hepatology Contact Information Available on [facility] A total of 25 minutes was spent on the Video Call, chart review, and coordination of care with specialists. INE CLOTHING REPLACER Associated attestation - Rell Mcgowan MD - 09/30/2020 10:58 AM CSTI personally interviewed the patient via telehealth encounter on 09/29/[address] Mendoza'snote with the following addition(s): LFT's and INR improving. Awaiting results of HCV and HBV PCR to r/o acute viral hepatitis. Acute hepatitis could have been possibly related to recent COVID-19 infection however data in the literature is lacking on exact hepatic manifestations of COVID-19 and the patient was asymptomatic/mild from a COVID-19 standpoint so this is less likely. He may have had hepatic ischemia related to his synchopal event, possibly from drug use vs dehydration as a result of decreased PO intake. Ideally would like his hepatitis to improve further before performing elective endoscopy and he will need to be at least 20 days out (not 30) from his initial positive COVID-19 test (on 09/20/20) and symptom-free for at least 10 days before elective endoscopy can be considered. Continue full liquid diet and additional nutritional supplementation as per recruiting consultant consult recommendations. If his eventual EGD and esophageal manometry confirm achalasia then depending on his exact subtype I would first consider a trial of either endoscopic dilation or Botox injection prior to considering surgical intervention given his current status as a county prison inmate, recurrent drug abuse, and diagnosis of schizophrenia as due to these factors he may not be able to receive/comply with the necessary post-surgical care. I actively participated in the decision- making process. Please see the fellow's note for additional details. Rell Mcgwoan MD [facility] Counselor Division of Gastroenterology and Hepatology Neisha Jaxon, DO - 09/29/2020 10:39 AM CST THORACIC SURGERY DAILY PROGRESS NOTE Date of Service: 09/29/20 Past 24h: No new abdominal pain. Liver enzymes improving. Started on CLD. Patient transferred to medicine yesterday. REVIEW OF SYSTEMS Multi-system review revealed no new other complaints PHYSICAL EXAM Vitals: Temp: [35.6 C (96.1 F)-36.4 C (97.6 F)] Heart Rate (monitor): [54-78] Pulse: [48-78] Resp: [12-21] BP: (100-137)/(71-94) MAP (mmHg): [83-102] Intake/Output Summary (Last 24 hours) at 09/29/2020 1039 Last data filed at 09/28/2020 1735 Gross per 24 hour Intake 2255 ml Output 150 ml Net 2105 ml Patient awake and alert. Hemodynamics: good Pulmonary Status: breathing comfortably on room air Gastrointestinal: Abdomen soft, nontender LABS CBC WBC (10*3/L) Date Value 09/29/2020 7.67 RBC (10*6/L) Date Value 09/29/2020 3.95 (L) PLT (10*3/L) Date Value 09/29/2020 113 (L) HGB (g/dL) Date Value 09/29/2020 11.4 (L) HCT (%) Date Value 09/29/2020 34.7 (L) BMP NA (mmol/L) Date Value 09/29/2020 139 K (mmol/L) Date Value 09/29/2020 4.9 CALCIUM (mg/dL) Date Value 09/29/2020 7.4 (L) CL (mmol/L) Date Value 09/29/2020 104 BUN (mg/dL) Date Value 09/29/2020 40 (H) CREATININE (mg/dL) Date Value 09/29/2020 1.10 GLUCOSE (mg/dL) Date Value 09/29/2020 100 CO2 TOTAL (mmol/L) Date Value 09/29/2020 32 (H) MEDICATIONS Admission Medications Medications Prior to Admission Medication Sig Dispense Refill Last Dose ergocalciferol, vitamin d2, 1,250 mcg (50,000 unit) capsule Take 1 capsule by mouth weekly for 5doses. 5 capsule 0 nitroglycerin 0.[address] 1 tablet under the tongue before meals. 90 tablet 2 omeprazole 40 mg capsule Take 1 capsule by mouth daily. 30 capsule 2 ziprasidone (GEODON) 80 mg capsule Take 80 mg by mouth 2 (two) times daily with meals. divalproex sodium (DEPAKOTE ORAL) Take by mouth. guanfacine HCl (TENEX ORAL) Take by mouth. sertraline HCl (ZOLOFT ORAL) Take by mouth. Current Medications Current Facility-Administered Medications Medication Dose Route Frequency Last Rate Last Admin [START ON 09/30/2020] lidocaine (LIDODERM) 5 % (700 mg/patch) patch 1 Patch 1 Patch Topical DAILY acetaminophen (TYLENOL) tablet 325 mg 325 mg Oral Q6HPRN D5W 0.45% NaCl (1/2NS) IV infusion 1,000 mL 1,000 mL IV Infusion CONTINUOUS 150 mL/hr at 09/29/20 0524 1,000 mL at 09/29/20 0524 dextrose 50 % in water (D50W) injection 25 mL 25 mL Slow IV Push PRN - SEE INSTRUCTIONS glucagon (GLUCAGEN DIAGNOSTIC KIT) injection 1 mg 1 mg Intramuscular PRN phytonadione (VITAMIN K) 10 mg in NaCl 0.9% (NS) piggyback 10 mg IV Piggyback DAILY Sliding Scale Insulin - Aspart (NOVOLOG) + Fsbg Testing Subcutaneous TID MEALS+HS Stopped at111/29/19 0800 thiamine (VITAMIN B1) 100 mg, foLIC acid (FOLATE) 1 mg, multivitamin adult (INFUVITE ADULT) 3,300 unit- 150 mcg/10 mL 10 mL in D5W 0.45% NaCl (1/2NS) IV Solution IV Infusion DAILY 150 mL/hr at 09/28/20 0900 New Bag at 09/28/20 0900 enoxaparin (LOVENOX) injection 40 mg 40 mg Subcutaneous DAILY 40 mg at 09/29/20917 ondansetron (ZOFRAN (PF)) injection 4 mg 4 mg Slow IV Push Q6HPRN 4 mg at 09/26/202125 valproate (DEPACON) 750 mg in D5W piggyback 750 mg IV Piggyback DAILY 750 mg at 09/29/20917 DIAGNOSIS/ PLAN: 35 year old male with long history of dysphagia with findings concerning for achalasia on UGI; no evidence of contrast extravasation. SONDRA resolved, transaminases improving. - EGD/manometry with GI pending - will follow up studies - will continue to follow - rest of care per primary Jaxon Driver DO PGY2 Department of Surgery INE CLOTHING REPLACER Associated attestation - Delvis Garcia MD - 09/29/2020 11:58 AM CSTAfter discussion with the resident, I examined this patient. I agree with the resident's note as written. Tato Gallegos DO - 09/29/2020 7:00 AM CST [facility] Progress Note Date of Service: 09/29/2020 07:00 Chief Complaint: "blacking out" 24-HOUR EVENTS: Transferred to [facility] team from SICU team SUBJECTIVE: Patient states he is extremely hungry but has been able to tolerate clear liquid diet. He states he has chronic nausea and vomiting associating with eating. If he eats too quickly he immediate vomits his food up. He was able to tolerate liquids outpatient as well. He admits to IV cocaine use, but his most recent use was 2-3 weeks prior to admission, not immediately prior to admission. PHYSICAL EXAM: Vitals: 09/28/20 1735 09/28/20 2000 09/29/20 0000 09/29/20 0400 BP: (!) 127/94 137/89 110/82 108/88 Pulse: 56 57 63 67 Resp: 16 19 18 16 Temp: 36.1 C (97 F) 36.2 C (97.2 F) 36.2 C (97.2 F) 36.1 C (96.9 F) TempSrc: Tympanic Tympanic Tympanic Tympanic SpO2: 100% 94% 100% 100% Weight: Intake/Output Summary (Last 24 hours) at 09/29/2020 0700 Last data filed at 09/28/2020 1735 Gross per 24 hour Intake 4221 ml Output 330 ml Net 3891 ml General: ill-appearing, cachectic, temporal wasting, appears older than stated age Lungs: clear to auscultation bilaterally Cardio: S1, S2 normal; no murmurs, rubs or gallops Abdomen: flat abdomen with diffuse tenderness Extremities: Pulses 2+, slight ;arm swelling Skin: Pale Neuro: no focal deficits LABS/IMAGING - reviewed, pertinent results as below: 09/20: Sars COV2: Rapid: Positive 09/26: Rapid Negative 09/27 NAAT: Negative CoV IgG: Positive Hep B Core IgM: Negative HBcAB Total: Reactive HAV Ab IgM: Negative Alk P: 773 ALT: 439 AST: 304 TSH: 0.67 T4: 1.29 T3: 1.79 Fl Barium Swallow Esophagus Result Date: 09/26/2020 1. No evidence to suggest esophageal perforation or contrast extravasation. 2. Bird's beak like narrowing of the distal esophagus near the GE junction, and proximal dilatation, is consistent with achalasia. Nonspecific internal filling defects suggest prior ingested material. 3. Findings are similar to the prior study from August 29, 2020. Preliminary Report Dictated by Resident: Mare Frost I, Sienna Mcmanus MD., have reviewed this study and agree with the above report. ASSESSMENT/PLAN Tahir Sanches Jr. is a 35 year old male admitted to the hospital with: Achalasia Dysphagia Acute Liver Failure Acute Kidney Injury Hyperkalemia Hypoglycemia Paitient initially admitted with thought of esophageal rupture at the GE junction due to CT findingsof possible rupture at GE junction. Patient previously admitted for similar symptoms but EGD was differed due to UDS positive for cocaine. On admission, labs significant for hyperkalemia and acute liver failure with LFTs in the 1000's. Patient made NPO and UGI series was negative for esophageal leak. Confirmed Achalasia with barium swallow. GI Consulted for evaluation of acute liver failure. Previoushepatitis etiology work up unremarkable, sending further infectious and autoimmune markers. Likely due to ischemic shock liver due to syncopal episode vs admission to recent cocaine use. Improving SONDRA with fluids. -Advance diet to full liquids, double portions. Patient able to tolerate -Continue to monitor BMP q12 for hyperkalemia, -Daily CBC, LFT and Pt/INR -TSH normal with low T3, likely due to acute sickness -Continue to trend LFTs, improving daily. -Stop Zosyn due to r/o esophageal perf -D5 1/2 NS at 150cc/hr -Monitor urine output to ensure adequate hydration -Continue to monitor glucose levels q4 as patient has been recurrently hypoglycemic. D50 available prn -Monitor hyperkalemia -Appreciate GI recs: -Pending infectious and autoimmune wor -Vitamin K 10mg daily for 3 days -Defer EGD Manometry during acute phase of liver injury, however patient in currently negative on UDS and would optimally receive procedure prior to d/c. COVID 19 Infection Patient with previous COVID + on 09/20 at [facility] prior to transfer but has been negative since he's been here. Noted positive for IgG. -Continue with COVID precautions. Patient denies current COVID symptoms -Consider discussing case with epidemiology in the morning Bipolar 1 and Schizophrenia Patient with previously noted psychiatric disorder. Currently calm and stable. -Restart home Valproate IV as patient is npo for medications. PAIN: Uncontrolled Tylenol, [place] and Morphine Prophylaxis: DVT- enoxaparin Stress Ulcer: pantoprazole Code Status: not addressed: presumed full Disposition Anticipated Discharge Date : 10/02/2020 Barriers to Discharge: IV medications, stabalizing po intake 09/28/2020 6:32 PM Tato Gallegos, Internal Medicine PGY-1 END OF DAILY PROGRESS NOTE HOSPITAL COURSE Tahir Sanches . is a 35 year old male with PMH of bipolar 1, schizophrenia and achalazia Paitient initially admitted with thought of esophageal rupture at the GE junction due to CT findings ofpossible rupture at GE junction. Patient previously admitted for similar symptoms but EGD was differed due to UDS positive for cocaine. On admission, labs significant for hyperkalemia and acute liver failure. Patient made NPO and UGI series was negative for esophageal leak. Confirmed Achalasia with barium swallow. GI Consulted for evaluation of acute liver failure. Patient remained hemodynamically stable with IVF and potassium monitoring and deemed stable to transfer to the floor. CURRENT MEDICATIONS - reviewed. Current Facility-Administered Medications Medication Dose Route Frequency Last Rate Last Admin [START ON 09/30/2020] lidocaine (LIDODERM) 5 % (700 mg/patch) patch 1 Patch 1 Patch Topical DAILY acetaminophen (TYLENOL) tablet 325 mg 325 mg Oral Q6HPRN D5W 0.45% NaCl (1/2NS) IV infusion 1,000 mL 1,000 mL IV Infusion CONTINUOUS 150 mL/hr at 09/29/20 0524 1,000 mL at 09/29/20 0524 dextrose 50 % in water (D50W) injection 25 mL 25 mL Slow IV Push PRN - SEE INSTRUCTIONS glucagon (GLUCAGEN DIAGNOSTIC KIT) injection 1 mg 1 mg Intramuscular PRN phytonadione (VITAMIN K) 10 mg in NaCl 0.9% (NS) piggyback 10 mg IV Piggyback DAILY 10 mg at 09/29/20 1107 Sliding Scale Insulin - Aspart (NOVOLOG) + Fsbg Testing Subcutaneous TID MEALS+HS Stopped at111/29/19 0800 thiamine (VITAMIN B1) 100 mg, foLIC acid (FOLATE) 1 mg, multivitamin adult (INFUVITE ADULT) 3,300 unit- 150 mcg/10 mL 10 mL in D5W 0.45% NaCl (1/2NS) IV Solution IV Infusion DAILY 150 mL/hr at 09/29/20 1107 New Bag at 09/29/20 1107 enoxaparin (LOVENOX) injection 40 mg 40 mg Subcutaneous DAILY 40 mg at 09/29/20 0918 ondansetron (ZOFRAN (PF)) injection 4 mg 4 mg Slow IV Push Q6HPRN 4 mg at 09/26/206 valproate (DEPACON) 750 mg in D5W piggyback 750 mg IV Piggyback DAILY 750 mg at 09/29/20 0918 INE CLOTHING REPLACER Associated attestation - Tony Forbes MD - 09/29/2020 3:22 PM CSTI personally evaluated the patient on the date of service as stated in this note and agree with Dr. Gallegos's resident note as written. I actively participated in the decision-making process. Please see the resident's note for additional details.Ministerio Vital MD - 09/28/2020 4:24 PM CSTGastroenterology and Hepatology Brief Progress Note - patient continues to have pain "all over" - asking for ice chips - liver chemistries continue to downtrend Assessment/Plan Acute Liver Injury Dysphagia COVID + Severe protein calorie malnutrition Acute liver injury most likely due to ischemic event (syncopal event, recent IV cocaine use), This is supportive by continued improvement in his liver chemistries. His EGD/manometry are non emergent and will be deferred until acute hepatitis improved - INR,CBC,CMP daily -please order HepatitisA IgM, HBV core IgG and IgM, HBV PCR, HCV PCR , LOYD, IgG -IV vitamin K 10 mg daily x3 days - close monitoring of mental status - ok with CLD from GI perspective - EGD/manometry deferred for now Discussed with attending, Dr. Mcgowan. Ministerio Vital Gastroenterology Fellow, PGY-4 Division of Gastroenterology and Hepatology Tato Colon DO - 09/28/2020 2:19 PM CST [facility] Acceptance Note Date of Service: 09/28/2020 14:19 Chief Complaint: "blacking out" 24-HOUR EVENTS: GI consulted and evaluated SUBJECTIVE: Patient was seen in the ICU prior to transfer. He was sleepy and had to be repeatedly verbally stimulated to respond to questions Patient repeatedly said "I'm so tired" Patient stated that he just remembers being in and out of prison and then blacking out and ending up in the ICU. He states he has diffuse abdominal pain currently. He also has lost around 40 lbs of weight over the past 2-3 months. He describes a globus mid-chest burning whenever he eats solid food that passes when he drinks liquid. He also states he has thrown up whole undigested food particles before. He states he smokes around a half a pack of cigarettes a day, smokes mariajuana but refused to answer about any other drug use. He denies fevers, chills, SOB, cough, change in stool or other symptoms. PHYSICAL EXAM: Vitals: 09/28/20 1100 09/28/20 1200 09/28/20 1300 09/28/20 1400 BP: 100/81 107/71 112/73 Pulse: 53 57 62 67 Resp: 21 12 16 17 Temp: 35.6 C (96.1 F) TempSrc: SpO2: 100% 100% 95% Weight: Intake/Output Summary (Last 24 hours) at 09/28/2020 1419 Last data filed at 09/28/2020 1400 Gross per 24 hour Intake 5611 ml Output 1440 ml Net 4171 ml General: ill-appearing, cachectic, temporal wasting, appears older than stated age Lungs: clear to auscultation bilaterally Cardio: S1, S2 normal; no murmurs, rubs or gallops Abdomen: flat abdomen with diffuse tenderness Extremities: Pulses 2+, slight ;arm swelling Skin: Pale Neuro: no focal deficits LABS/IMAGING - reviewed, pertinent results as below: 09/20: Sars COV2: Rapid: Positive 09/26: Rapid Negative 09/27 NAAT: Negative CoV IgG: Positive Fl Barium Swallow Esophagus Result Date: 09/26/2020 1. No evidence to suggest esophageal perforation or contrast extravasation. 2. Bird's beak like narrowing of the distal esophagus near the GE junction, and proximal dilatation, is consistent with achalasia. Nonspecific internal filling defects suggest prior ingested material. 3. Findings are similar to the prior study from August 29, 2020. Preliminary Report Dictated by Resident: Sienna Mcbride MD., have reviewed this study and agree with the above report. Us Abdomen Limited Result Date: 09/26/2020 Right kidney is echogenic concerning for underlying chronic medical renal disease. Otherwise, unremarkable right upper quadrant ultrasound. ASSESSMENT/PLAN Tahir Sanches Jr. is a 35 year old male admitted to the hospital with: Achalasia Dysphagia Acute Liver Failure Hyperkalemia Hypoglycemia Paitient initially admitted with thought of esophageal rupture at the GE junction due to CT findingsof possible rupture at GE junction. Patient previously admitted for similar symptoms but EGD was differed due to UDS positive for cocaine. On admission, labs significant for hyperkalemia and acute liver failure with LFTs in the 1000's. Patient made NPO and UGI series was negative for esophageal leak. Confirmed Achalasia with barium swallow. GI Consulted for evaluation of acute liver failure. Previoushepatitis etiology work up unremarkable, sending further infectious and autoimmune markers. Likely due to ischemic shock liver due to syncopal episode vs admission to recent cocaine use. -Clear liquid diet, npo with meds -Continue to monitor BMP q12 for hyperkalemia, -Daily CBC, LFT and Pt/INR -Continue to trend LFTs -Started on Zosyn for suspected esophageal rupture, consider d/c since rupture has been ruled out. -D5 1/2 NS at 150cc/hr -IV Protonix -Monitor urine output -Continue to monitor glucose levels q4 as patient has been recurrently hypoglycemic. D50 available prn -Monitor hyperkalemia -Appreciate GI recs: -Hepatitis A IgM, HBV core IgG/IgM, HBV PCR, HCV PCR, LOYD, IgG -Vitamin K 10mg daily for 3 days -[place] consult -C/w CLD -Defer EGD Manometry during acute phase COVID 19 Infection Patient with previous COVID + on 09/20 at [facility] prior to transfer but has been negative since he's been here. Noted positive for IgG. -Continue with COVID precautions. Patient denies current COVID symptoms -Consider discussing case with epidemiology in the morning Bipolar 1 and Schizophrenia Patient with previously noted psychiatric disorder. Currently calm and stable. -Restart home Valproate IV as patient is npo for medications. PAIN: Uncontrolled Tylenol, [place] and Morphine Prophylaxis: DVT- enoxaparin Stress Ulcer: pantoprazole Code Status: not addressed: presumed full Disposition Anticipated Discharge Date : 10/02/2020 Barriers to Discharge: IV medications, stabalizing po intake 09/28/2020 6:32 PM Tato Gallegos, Internal Medicine PGY-1 END OF DAILY PROGRESS NOTE HOSPITAL COURSE Tahir Powerrl Bahena. is a 35 year old male with PMH of bipolar 1, schizophrenia and achalazia Paitient initially admitted with thought of esophageal rupture at the GE junction due to CT findings ofpossible rupture at GE junction. Patient previously admitted for similar symptoms but EGD was differed due to UDS positive for cocaine. On admission, labs significant for hyperkalemia and acute liver failure. Patient made NPO and UGI series was negative for esophageal leak. Confirmed Achalasia with barium swallow. GI Consulted for evaluation of acute liver failure. Patient remained hemodynamically stable with IVF and potassium monitoring and deemed stable to transfer to the floor. CURRENT MEDICATIONS - reviewed. Current Facility-Administered Medications Medication Dose Route Frequency Last Rate Last Admin D10W 0.45% NaCl (1/2 NS) IV infusion 1,000 mL 1,000 mL IV Infusion CONTINUOUS dextrose 50 % in water (D50W) injection 25 mL 25 mL Slow IV Push PRN - SEE INSTRUCTIONS glucagon (GLUCAGEN DIAGNOSTIC KIT) injection 1 mg 1 mg Intramuscular PRN Sliding Scale Insulin - Aspart (NOVOLOG) + Fsbg Testing Subcutaneous TID MEALS+HS Stopped at111/29/19 0800 albuterol (PROVENTIL) 2.5 mg /3 mL (0.083 %) nebulizer solution 2.5 mg 2.5 mg Inhalation Q2HPRN thiamine (VITAMIN B1) 100 mg, foLIC acid (FOLATE) 1 mg, multivitamin adult (INFUVITE ADULT) 3,300 unit- 150 mcg/10 mL 10 mL in D5W 0.45% NaCl (1/2NS) IV Solution IV Infusion DAILY 150 mL/hr at 09/28/20 0900 New Bag at 09/28/20 0900 diphenhydrAMINE (BENADRYL) injection 25 mg 25 mg Slow IV Push Q6HPRN enoxaparin (LOVENOX) injection 40 mg 40 mg Subcutaneous DAILY 40 mg at 09/28/20 0936 HYDROmorphone (DILAUDID) injection 0.4 mg 0.4 mg Slow IV Push Q3HPRN 0.4 mg at 09/28/20 1310 ondansetron (ZOFRAN (PF)) injection 4 mg 4 mg Slow IV Push Q6HPRN 4 mg at 09/26/20 2126 pantoprazole (PROTONIX) 40 mg in NaCl 0.9% (NS) 100 mL MINI-BAG 40 mg IV Piggyback Q24H 40 mgat 09/27/20 1900 piperacillin-tazobactam (ZOSYN) 3.375 g in NaCl 0.9% (NS) 100 mL MINI-BAG 3.375 g IV Piggyback Q6H ABX 3.375 g at 09/28/20 0910 valproate (DEPACON) 750 mg in D5W piggyback 750 mg IV Piggyback DAILY 750 mg at 09/28/20 1003 INE CLOTHING REPLACER Associated attestation - Tony Forbes MD - 09/29/2020 3:[address]ST[address] discussion with Dr. Gallegos, I personally examined the patient on 09/29/20 and agree with the note as written. Exam findings documented below. Mr. Sanches has a history of achalasia, polysubstance abuse, who presented with worry for esophageal perforation, ruled out by barium swallow. Profoundly malnourished. Appears to have a positive PCR from 09/20, but two negative tests since. Also IgG+. Mayrepresent resolved or resolving COVID infection. Will discuss with hospital epidemiology - would benefit from ongoing evaluation by GI for definitive treatment for achalasia. I actively participated in the decision- making process. Please see the resident's note for additional details. BP (!) 116/91 | Pulse (!) 48 | Temp 36.4 C (97.6 F) (Axillary) | Resp 20 | Wt 49.9 kg (110 lb) | SpO2 100% | BMI 17.75 kg/m Exam General: alert and oriented; no apparent distress HEENT: extraocular movements intact; oropharynx clear; moist mucous membranes Lungs: clear to auscultation bilaterally Cardio: S1, S2 normal; no murmurs, rubs or gallops Abdomen: cachectic, soft; non-tender; non-distended; normoactive bowel sounds Extremities: no cyanosis, clubbing or edema Tony Forbes MD 09/29/2020 11:34 AM Fernando Penny DO - 09/28/2020 1:52 PM CSTSummary: SICU PROGRESS NOTE SICU PROGRESS NOTE Date of Service: 09/28/2020 Time: 1:55 PM Admitting Service: Cardiothoracic Surgery Admission Diagnosis: Esophageal perforation HPI 09/26/20 Tahir Sanches Jr. is a 35 year old male with PMH bipolar 1, schizophrenia, GE junction narrowing (possible achalasia vs. stricture) initially presenting to [facility] for syncopal episode in [facility] morning of 09/26/2020. Transferred to [facility] for CT findings concerning for possible esophageal perforation at GE junction. Endorses episodes of non- bloody, non-bilious emesis. Recently discharged on 08/30/20 for GE junction narrowing, EGD deferred at the time due to positive UDS (cocaine). At the time, patient complaining of dysphagia, hypokalemia, weight loss. Was counseled to avoid solid foods due to risks of aspiration and esophageal rupture. Upon presentation, patient AFVSS. Labs showing acute liver failure, SONDRA, UTI. CT surgery planning for strict NPO and UGI series. Patient stated that he had N/V x 5 days. He c/o "pain all over", and states that he has lost about 40 lbs. In the past 6 months. He tested positive for COVID-19 about a week ago but has never had any symptoms. He stated that last used illicit drugs about 2 weeks ago (cocaine). 09/27/20 UGI series was negative for esophageal leak. He is currently on room air. His serum potassium level has decreased from 6.1 -> 5.5 with hydration. He has received an additional liter of LR and has D51/2 NS @ 150 cc/hr.. Blood sugar has normalized. His pain and nausea are controlled. His mood is normal. Acalasia was re-confirmed by the barium swallow last evening. 09/28/20 He is hemodynamically stable on room air. His urine output has improved, and his electrolytes are WNL except for a slightly elevated potassium level. His nausea and pain are well controlled with current medications. CT surgery is allowing him to have ice chips, and will plan to advance his diet tomorrow if tolerated. COVID-19 PCR on 09/27/20 is negative. He has no upper or lower respiratory symptoms. We will continue to provide IV hydration and have switched to D10 0.45 NS to prevent hypoglycemia. His valproate has been restarted by primary team. LFT's are stable. History Past Medical History: Diagnosis Date Bipolar 1 disorder GERD (gastroesophageal reflux disease) Manic affective disorder with recurrent episode Schizophrenia History reviewed. No pertinent surgical history. Social History Socioeconomic History Marital status: Single [...] file Gets together: Not on file Attends islam service: Not on file Active member of [...] file Social History Narrative Not on file Medications Current Medications: Current Facility-Administered Medications Medication Dose Route Frequency Last Rate Last Admin D10W 0.45% NaCl (1/2 NS) IV infusion 1,000 mL 1,000 mL IV Infusion CONTINUOUS dextrose 50 % in water (D50W) injection 25 mL 25 mL Slow IV Push PRN - SEE INSTRUCTIONS glucagon (GLUCAGEN DIAGNOSTIC KIT) injection 1 mg 1 mg Intramuscular PRN Sliding Scale Insulin - Aspart (NOVOLOG) + Fsbg Testing Subcutaneous TID MEALS+HS Stopped at111/29/19 0800 albuterol (PROVENTIL) 2.5 mg /3 mL (0.083 %) nebulizer solution 2.5 mg 2.5 mg Inhalation Q2HPRN thiamine (VITAMIN B1) 100 mg, foLIC acid (FOLATE) 1 mg, multivitamin adult (INFUVITE ADULT) 3,300 unit- 150 mcg/10 mL 10 mL in D5W 0.45% NaCl (1/2NS) IV Solution IV Infusion DAILY 150 mL/hr at 09/28/20 0900 New Bag at 09/28/20 0900 diphenhydrAMINE (BENADRYL) injection 25 mg 25 mg Slow IV Push Q6HPRN enoxaparin (LOVENOX) injection 40 mg 40 mg Subcutaneous DAILY 40 mg at 09/28/20 0936 HYDROmorphone (DILAUDID) injection 0.4 mg 0.4 mg Slow IV Push Q3HPRN 0.4 mg at 09/28/20 1310 ondansetron (ZOFRAN (PF)) injection 4 mg 4 mg Slow IV Push Q6HPRN 4 mg at 09/26/20 2126 pantoprazole (PROTONIX) 40 mg in NaCl 0.9% (NS) 100 mL MINI-BAG 40 mg IV Piggyback Q24H 40 mgat 09/27/20 1900 piperacillin-tazobactam (ZOSYN) 3.375 g in NaCl 0.9% (NS) 100 mL MINI-BAG 3.375 g IV Piggyback Q6H ABX 3.375 g at 09/28/20 0910 valproate (DEPACON) 750 mg in D5W piggyback 750 mg IV Piggyback DAILY 750 mg at 09/28/20 1003 Pre-op/Pre-admission Medications No current facility-administered medications on file prior to encounter. Current Outpatient Medications on File Prior to Encounter Medication Sig Dispense Refill ergocalciferol, vitamin d2, 1,250 mcg (50,000 unit) capsule Take 1 capsule by mouth weekly for 5doses. 5 capsule 0 nitroglycerin 0.[address] 1 tablet under the tongue before meals. 90 tablet 2 omeprazole 40 mg capsule Take 1 capsule by mouth daily. 30 capsule 2 ziprasidone (GEODON) 80 mg capsule Take 80 mg by mouth 2 (two) times daily with meals. divalproex sodium (DEPAKOTE ORAL) Take by mouth. guanfacine HCl (TENEX ORAL) Take by mouth. sertraline HCl (ZOLOFT ORAL) Take by mouth. Allergies No Known Allergies Physical Exam Vitals: 09/28/20 1300 BP: Pulse: 62 Resp: 16 Temp: 35.6 C (96.1 F) SpO2: 95% General: alert and oriented x 4 (person, place, date/time and situation) Pulm: No cough; diminished and CTA Cardio: S1, S2 normal; no murmurs, rubs or gallops Abdomen: soft, tender, bowel sounds present; nausea controlled with antiemetics Extremities: no clubbing, cyanosis, or edema Neuro: no focal deficits Pain: pain controlled with Dilaudid Sedation: not sedated. Airway: room air Monitors & Access Lines: PIV, 1. Date inserted 09/26/2020. Ventilator N/A PA Catheter: N/A Infusions: None Drains: none Labs: CBC BMP PT/INR WBC (10*3/L) Date Value 09/28/2020 8.01 NA (mmol/L) Date Value 09/28/2020 140 No results found for: PT RBC (10*6/L) Date Value 09/28/2020 3.79 (L) K (mmol/L) Date Value 09/28/2020 5.2 (H) INR (no units) Date Value 09/28/2020 1.6 PLT (10*3/L) Date Value 09/28/2020 142 (L) CALCIUM (mg/dL) Date Value 09/28/2020 7.4 (L) HGB (g/dL) Date Value 09/28/2020 10.8 (L) CL (mmol/L) Date Value 09/28/2020 111 (H) aPTT HCT (%) Date Value 09/28/2020 33.4 (L) BUN (mg/dL) Date Value 09/28/2020 56 (H) APTT Patient (Seconds) Date Value 09/27/2020 36 CREATININE (mg/dL) Date Value 09/28/2020 1.11 LFTs ALBUMIN (g/dL) Date Value 09/28/2020 2.8 (L) T PROTEIN (g/dL) Date Value 09/28/2020 6.2 (L) TOTAL BILI (mg/dL) Date Value 09/28/2020 3.1 (H) BILI UNCON (mg/dL) Date Value 09/28/2020 2.7 (H) BILI CONJ (mg/dL) Date Value 09/28/2020 0.0 ALT(SGPT) (U/L) Date Value 01/10/2019 15 ALTv (U/L) Date Value 09/28/2020 483 (H) AST(SGOT) (U/L) Date Value 09/28/2020 434 (H) ALK PHOS (U/L) Date Value 09/28/2020 773 (H) ABG N/A Admission CXR Results: The heart and great vessels are normal. The lungs are overinflated but clear. Radiology: Ct Abdomen Pelvis Wo Contrast Result Date: 09/26/2020 1. [id number] amount of gas surrounding the distal esophagus and GE junction. Findings are concerning for esophageal perforation gas tracking superiorly mediastinum. Correlate clinically. Recommend surgical consultation. 2. Distal esophagus and measures moderately distended with hyperattenuating material. 3. Cachexia. 4. Additional findings as above. Us Abdomen Limited Result Date: 09/26/2020 Right kidney is echogenic concerning for underlying chronic medical renal disease. Otherwise, unremarkable right upper quadrant ultrasound. Barrium Swallow No evidence to suggest esophageal perforation or contrast Extravasation. Bird's beak like narrowing of the distal esophagus near the GE junction, and proximaldilatation, is consistent with achalasia. Nonspecific internal filling defects suggest prior ingested material. Findings are similar to the prior study from August 29, 2020. Assessment & Plan Tahir Sanches Jr. is a 35 year old male with esophageal stricture admitted to SICU for possible esophageal perforation. Previously was worked up for GE junction narrowing (achalasia vs stricture), but EGD deferred due to cocaine use. Patient hemodynamically stable but presenting with SONDRA and acute liver failure. Neurology: history of bipolar 1 and schizophrenia; calm and cooperative, having diffuse pain - Continue dilaudid; primary team has added depakote; mood is appropriate Cardiovascular: hemodynamically stable, dehydrated - hydrate and continue to monitor Pulmonary: no respiratory distress - O2 per protocol Gastrointestinal: possible esophageal perforation - Ice chips - UGI series indicated no leak - IV protonix 40mg - Antiemetics prn Renal/Electrolytes: SONDRA with Cr 1.42 on admission likely secondary to dehydration given history of emesis. Acute liver failure - LFT's stable - D10 1/2NS @150ml/hr - Monitor BMP Q12H, hepatic function QD and coags QD Endocrinology: initially hypoglycemic (glucose 48) on admission but normoglycemic now - Continue D10 1/2 NS infusion Infectious Disease: COVID positive on 09/20/20 (negative on this admission 09/26/2020), syphilis positive on 08/24/20, negative for HCV, HBV - Zosyn - No growth in 48 hrs. BCx 09/26/2020 Hematology: Monitor for anemia - Daily CBC DVT Prophylaxis: lovenox, SCD's Fernando Penny, DO 09/28/2020 1410 SICU Service INE CLOTHING REPLACER Associated attestation - Star Ashford MD - 09/30/2020 5:52 PM CSTI personally examined the patient on 09/28/[address] Penny's resident note as written . I actively participated in the decision-making process. Please see the resident's note for additional details. Will transfer care to medical Echo Vascular Tech. Star Ashford MD 09/30/2020 5:52 PM Jennifer Yang MD - 09/28/2020 9:58 AM CST THORACIC SURGERY DAILY PROGRESS NOTE 09/27/20 Date of Service: 09/27/20 Past 24h: No new abdominal pain. Liver enzymes improving. REVIEW OF SYSTEMS Multi-system review revealed no new other complaints PHYSICAL EXAM Vitals: Heart Rate (monitor): [40-64] Pulse: [40-61] Resp: [8-21] BP: (92-135)/(73-89) MAP (mmHg): [82-101] Intake/Output Summary (Last 24 hours) at 09/28/2020 0958 Last data filed at 09/28/2020 0400 Gross per 24 hour Intake 1859 ml Output 1285 ml Net 574 ml Patient awake and alert. Hemodynamics: good Pulmonary Status: breathing comfortably on room air Gastrointestinal: Abdomen soft, nontender LABS CBC WBC (10*3/L) Date Value 09/28/2020 7.64 RBC (10*6/L) Date Value 09/28/2020 3.71 (L) PLT (10*3/L) Date Value 09/28/2020 144 (L) HGB (g/dL) Date Value 09/28/2020 10.7 (L) HCT (%) Date Value 09/28/2020 32.7 (L) BMP NA (mmol/L) Date Value 09/28/2020 140 K (mmol/L) Date Value 09/28/2020 5.1 (H) CALCIUM (mg/dL) Date Value 09/28/2020 8.0 (L) CL (mmol/L) Date Value 09/28/2020 111 (H) BUN (mg/dL) Date Value 09/28/2020 64 (H) CREATININE (mg/dL) Date Value 09/28/2020 1.35 (H) GLUCOSE (mg/dL) Date Value 09/28/2020 120 (H) CO2 TOTAL (mmol/L) Date Value 09/28/2020 25 MEDICATIONS Admission Medications Medications Prior to Admission Medication Sig Dispense Refill Last Dose ergocalciferol, vitamin d2, 1,250 mcg (50,000 unit) capsule Take 1 capsule by mouth weekly for 5doses. 5 capsule 0 nitroglycerin 0.[address] 1 tablet under the tongue before meals. 90 tablet 2 omeprazole 40 mg capsule Take 1 capsule by mouth daily. 30 capsule 2 ziprasidone (GEODON) 80 mg capsule Take 80 mg by mouth 2 (two) times daily with meals. divalproex sodium (DEPAKOTE ORAL) Take by mouth. guanfacine HCl (TENEX ORAL) Take by mouth. sertraline HCl (ZOLOFT ORAL) Take by mouth. Current Medications Current Facility-Administered Medications Medication Dose Route Frequency Last Rate Last Admin calcium gluconate 1 g in NaCl 50 mL (ISO-OSM) RTU IV infusion 1 g 1 g IV Infusion ONCE dextrose 50 % in water (D50W) injection 25 mL 25 mL Slow IV Push PRN - SEE INSTRUCTIONS glucagon (GLUCAGEN DIAGNOSTIC KIT) injection 1 mg 1 mg Intramuscular PRN Sliding Scale Insulin - Aspart (NOVOLOG) + Fsbg Testing Subcutaneous TID MEALS+HS albuterol (PROVENTIL) 2.5 mg /3 mL (0.083 %) nebulizer solution 2.5 mg 2.5 mg Inhalation Q2HPRN thiamine (VITAMIN B1) 100 mg, foLIC acid (FOLATE) 1 mg, multivitamin adult (INFUVITE ADULT) 3,300 unit- 150 mcg/10 mL 10 mL in D5W 0.45% NaCl (1/2NS) IV Solution IV Infusion DAILY 150 mL/hr at 09/28/20 0900 New Bag at 09/28/20 0900 D5W 0.45% NaCl (1/2NS) IV infusion 1,000 mL 1,000 mL IV Infusion CONTINUOUS 150 mL/hr at 09/26/20 2130 1,000 mL at 09/26/20 2130 diphenhydrAMINE (BENADRYL) injection 25 mg 25 mg Slow IV Push Q6HPRN enoxaparin (LOVENOX) injection 40 mg 40 mg Subcutaneous DAILY 40 mg at 09/28/20 0936 HYDROmorphone (DILAUDID) injection 0.4 mg 0.4 mg Slow IV Push Q3HPRN 0.4 mg at 09/28/20 0931 ondansetron (ZOFRAN (PF)) injection 4 mg 4 mg Slow IV Push Q6HPRN 4 mg at 09/26/20 2126 pantoprazole (PROTONIX) 40 mg in NaCl 0.9% (NS) 100 mL MINI-BAG 40 mg IV Piggyback Q24H 40 mgat 09/27/20 1900 piperacillin-tazobactam (ZOSYN) 3.375 g in NaCl 0.9% (NS) 100 mL MINI-BAG 3.375 g IV Piggyback Q6H ABX 3.375 g at 09/28/20 0910 valproate (DEPACON) 750 mg in D5W piggyback 750 mg IV Piggyback DAILY 750 mg at 09/27/20 1049 DIAGNOSIS/ PLAN: 35 year old male with long history of dysphagia with findings concerning for achalasia on UGI; no evidence of contrast extravasation. Persistent SONDRA, transaminases improving. Neuro: - PRN pain meds, resume home antipsychotics CV: no issues Pulm: no issues GI: - ok for ice chips - GI following for EGD, manometry, as well as for hepatic failure Renal: - continue to resuscitate, UOP adequate - creat 1.3 Endo: - hypoglycemia improved, suspect secondary to hepatic insufficiency Heme/ID: - following blood cultures - UA positive for few bacteria, leuk esterase, negative nitrites. Send for culture - Zosyn - INR 1.6, scheduled vit K - follow up HCV; transaminases downtrending Other: - UDS negative for recreational drugs - To floor medical team today Ppx: [email or web address] For questions please contact the CT Surgery pager: Jennifer Yang MD Cardiothoracic Surgery Fellow 09/28/20 INE CLOTHING REPLACER Associated attestation - Delvis Garcia MD - 09/29/2020 9:19 AM CSTAfter discussion with the resident, I examined this patient. I agree with the resident's note as written. Jennifer Yang MD - 09/27/2020 10:25 AM CST THORACIC SURGERY DAILY PROGRESS NOTE 09/27/20 Date of Service: 09/27/20 Past 24h: Patient had UGI negative for leak. Characteristics concerning for achalasia. Liver enzymes downtrending but INR persistently elevated. Denies abdominal or chest pain. Hungry this morning. REVIEW OF SYSTEMS Multi-system review revealed no new other complaints PHYSICAL EXAM Vitals: Temp: [35.3 C (95.6 F)-36.3 C (97.3 F)] Heart Rate (monitor): [47-79] Pulse: [49-80] Resp: [7-26] BP: (91-133)/(65-99) MAP (mmHg): [74-110] Intake/Output Summary (Last 24 hours) at 09/27/2020 1025 Last data filed at 09/27/2020 0600 Gross per 24 hour Intake 1176 ml Output 960 ml Net 216 ml Patient awake and alert. Hemodynamics: good Pulmonary Status: breathing comfortably Gastrointestinal: Abdomen soft, nontender LABS CBC WBC (10*3/L) Date Value 09/27/2020 8.40 RBC (10*6/L) Date Value 09/27/2020 3.54 (L) PLT (10*3/L) Date Value 09/27/2020 159 HGB (g/dL) Date Value 09/27/2020 10.2 (L) HCT (%) Date Value 09/27/2020 31.1 (L) BMP NA (mmol/L) Date Value 09/27/2020 142 K (mmol/L) Date Value 09/27/2020 5.5 (H) CALCIUM (mg/dL) Date Value 09/27/2020 7.1 (L) CL (mmol/L) Date Value 09/27/2020 113 (H) BUN (mg/dL) Date Value 09/27/2020 96 (H) CREATININE (mg/dL) Date Value 09/27/2020 1.29 (H) GLUCOSE (mg/dL) Date Value 09/27/2020 136 (H) CO2 TOTAL (mmol/L) Date Value 09/27/2020 22 (L) MEDICATIONS Admission Medications Medications Prior to Admission Medication Sig Dispense Refill Last Dose ergocalciferol, vitamin d2, 1,250 mcg (50,000 unit) capsule Take 1 capsule by mouth weekly for 5doses. 5 capsule 0 nitroglycerin 0.[address] 1 tablet under the tongue before meals. 90 tablet 2 omeprazole 40 mg capsule Take 1 capsule by mouth daily. 30 capsule 2 ziprasidone (GEODON) 80 mg capsule Take 80 mg by mouth 2 (two) times daily with meals. divalproex sodium (DEPAKOTE ORAL) Take by mouth. guanfacine HCl (TENEX ORAL) Take by mouth. sertraline HCl (ZOLOFT ORAL) Take by mouth. Current Medications Current Facility-Administered Medications Medication Dose Route Frequency Last Rate Last Admin thiamine (VITAMIN B1) 100 mg, foLIC acid (FOLATE) 1 mg, multivitamin adult (INFUVITE ADULT) 3,300 unit- 150 mcg/10 mL 10 mL in D5W 0.45% NaCl (1/2NS) IV Solution IV Infusion DAILY D5W 0.45% NaCl (1/2NS) IV infusion 1,000 mL 1,000 mL IV Infusion CONTINUOUS 150 mL/hr at 09/26/20 2130 1,000 mL at 09/26/20 2130 dextrose 50 % in water (D50W) injection 50 mL 50 mL Slow IV Push PRN - SEE INSTRUCTIONS diphenhydrAMINE (BENADRYL) injection 25 mg 25 mg Slow IV Push Q6HPRN enoxaparin (LOVENOX) injection 40 mg 40 mg Subcutaneous DAILY 40 mg at 09/27/20 1010 HYDROmorphone (DILAUDID) injection 0.4 mg 0.4 mg Slow IV Push Q3HPRN 0.4 mg at 09/27/20 0609 ondansetron (ZOFRAN (PF)) injection 4 mg 4 mg Slow IV Push Q6HPRN 4 mg at 09/26/206 pantoprazole (PROTONIX) 40 mg in NaCl 0.9% (NS) 100 mL MINI-BAG 40 mg IV Piggyback Q24H 40 mgat 09/26/20 2201 piperacillin-tazobactam (ZOSYN) 3.375 g in NaCl 0.9% (NS) 100 mL MINI-BAG 3.375 g IV Piggyback Q6H ABX 3.375 g at 09/27/20 0800 valproate (DEPACON) 750 mg in D5W piggyback 750 mg IV Piggyback DAILY DIAGNOSIS/ PLAN: 35 year old male with long history of dysphagia with findings concerning for achalasia on UGI; no evidence of contrast extravasation. Persistently elevated transaminases and INR, SONDRA slightly improved. Neuro: - PRN IV pain meds CV: no issues Pulm: no issues GI: - ok for ice chips - GI consult for EGD as soon as 09/29 Renal: - continue to resuscitate, follow BMP - creat 1.29 from 1.4 Endo: - hypoglycemia improved, suspect secondary to hepatic failure Heme/ID: - awaiting blood cultures - UA positive for few bacteria, leuk esterase, negative nitrites. Send for culture - Zosyn - INR 1.8 secondary to hepatic failure - follow up HCV; transaminases downtrending Other: - UDS negative for recreational drugs Ppx: Lovenox/protonix For questions please contact the CT Surgery pager: Jennifer Yang MD Cardiothoracic Surgery Fellow 09/27/20 10:25 AM INE CLOTHING REPLACER Associated attestation - Delvis Garcia MD - 09/28/2020 8:41 AM CSTAfter discussion with the resident, I examined this patient. I agree with the resident's note as written. Amador Walsh MD - 09/26/2020 7:19 PM CST TAC Chief Note Date 09/26/2020 S: 35 y/o incarcerated male in [facility] s/p syncopal episode today morning (09/26/2020). He states he had episodes of non-bloody, non-bilious emesis this morning as well but unsure if this happenedbefore or after the syncopal episode (poor historian). Denies chest pain or abdominal pain but states "entire body hurts". O: Vitals: 09/26/20 1300 09/26/20 1446 09/26/20 1500 09/26/20 1600 BP: (!) 125/95 (!) 116/96 (!) 128/99 Pulse: 68 76 80 59 Resp: Temp: 35.9 C (96.6 F) 35.6 C (96 F) TempSrc: Oral Oral SpO2: 98% 96% 97% 96% Weight: Vital reviewed, WNL PE: Gen: GCS 15, NAD Chest: Bilateral air entry, no crackles Abdomen: Cachetic, non-tender MSK: No edema, cachectic A/P: Tahir Sanches Jr. is a 35 year old male s/p syncopal episodes with emesis, and history of achalasia, concern for esophageal perforation, no perforation noted on barium swallow preliminarily, continue NPO for pneumoediastinum at this time 1. Severe nutritional deficiency - NPO for now but will need PO nutrition ROBETRO 2. Possible esophageal perforation - Barium swallow preliminarily negative, will follow up final read, NPO for now 3. Elevated LFT's: Hepatitis panel, HIV testing, GI consult tomorrow 4. Acute kidney injury: Consult medicine, ultrasound with signs of atrophy, IVF 5. Schizophrenia: Hold meds for now until tolerating oral diet Amador Walsh MD, [facility] General Surgery Resident PGY 4 Personal Pager: [phone] Trauma/Acute Care Pager: documented in this encounter H&P Notes Fernando Penny, - 09/27/2020 5:16 AM CSTSummary: SICU Progress Note SICU PROGRESS NOTE Date of Service: 09/27/2020 Time: 5:17 AM Admitting Service: Cardiothoracic Surgery Admission Diagnosis: Esophageal perforation HPI 09/26/20 aThir Sanches Jr. is a 35 year old male with PMH bipolar 1, schizophrenia, GE junction narrowing (possible achalasia vs. stricture) initially presenting to [facility] for syncopal episode in [facility] morning of 09/26/2020. Transferred to [facility] for CT findings concerning for possible esophageal perforation at GE junction. Endorses episodes of non- bloody, non-bilious emesis. Recently discharged on 08/30/20 for GE junction narrowing, EGD deferred at the time due to positive UDS (cocaine). At the time, patient complaining of dysphagia, hypokalemia, weight loss. Was counseled to avoid solid foods due to risks of aspiration and esophageal rupture. Upon presentation, patient AFVSS. Labs showing acute liver failure, SONDRA, UTI. CT surgery planning for strict NPO and UGI series. Patient stated that he had N/V x 5 days. He c/o "pain all over", and states that he has lost about 40 lbs. In the past 6 months. He tested positive for COVID-19 about a week ago but has never had any symptoms. He stated that last used illicit drugs about 2 weeks ago (cocaine). 09/27/20 UGI series was negative for esophageal leak. He is currently on room air. His serum potassium level has decreased from 6.1 -> 5.5 with hydration. He has received an additional liter of LR and has D51/2 NS @ 150 cc/hr.. Blood sugar has normalized. His pain and nausea are controlled. His mood is normal. Acalasia was re-confirmed by the barium swallow last evening. History Past Medical History: Diagnosis Date Bipolar 1 disorder GERD (gastroesophageal reflux disease) Manic affective disorder with recurrent episode Schizophrenia History reviewed. No pertinent surgical history. Social History Socioeconomic History Marital status: Single [...] file Gets together: Not on file Attends islam service: Not on file Active member of [...] file Social History Narrative Not on file Medications Current Medications: Current Facility-Administered Medications Medication Dose Route Frequency Last Rate Last Admin D5W 0.45% NaCl (1/2NS) IV infusion 1,000 mL 1,000 mL IV Infusion CONTINUOUS 150 mL/hr at 09/26/20 2130 1,000 mL at 09/26/20 2130 dextrose 50 % in water (D50W) injection 50 mL 50 mL Slow IV Push PRN - SEE INSTRUCTIONS diphenhydrAMINE (BENADRYL) injection 25 mg 25 mg Slow IV Push Q6HPRN enoxaparin (LOVENOX) injection 40 mg 40 mg Subcutaneous DAILY HYDROmorphone (DILAUDID) injection 0.4 mg 0.4 mg Slow IV Push Q3HPRN ondansetron (ZOFRAN (PF)) injection 4 mg 4 mg Slow IV Push Q6HPRN 4 mg at 09/26/20 2126 pantoprazole (PROTONIX) 40 mg in NaCl 0.9% (NS) 100 mL MINI-BAG 40 mg IV Piggyback Q24H 40 mgat 09/26/20 2201 piperacillin-tazobactam (ZOSYN) 3.375 g in NaCl 0.9% (NS) 100 mL MINI-BAG 3.375 g IV Piggyback Q6H ABX 3.375 g at 09/27/20 0200 valproate (DEPACON) 750 mg in D5W piggyback 750 mg IV Piggyback DAILY Pre-op/Pre-admission Medications No current facility-administered medications on file prior to encounter. Current Outpatient Medications on File Prior to Encounter Medication Sig Dispense Refill ergocalciferol, vitamin d2, 1,250 mcg (50,000 unit) capsule Take 1 capsule by mouth weekly for 5doses. 5 capsule 0 nitroglycerin 0.[address] 1 tablet under the tongue before meals. 90 tablet 2 omeprazole 40 mg capsule Take 1 capsule by mouth daily. 30 capsule 2 ziprasidone (GEODON) 80 mg capsule Take 80 mg by mouth 2 (two) times daily with meals. divalproex sodium (DEPAKOTE ORAL) Take by mouth. guanfacine HCl (TENEX ORAL) Take by mouth. sertraline HCl (ZOLOFT ORAL) Take by mouth. Allergies No Known Allergies Physical Exam Vitals: 09/27/20 0400 BP: 105/82 Pulse: 51 Resp: 14 Temp: 36.3 C (97.3 F) SpO2: 96% General: alert and oriented x 4 (person, place, date/time and situation) Pulm: No cough; diminished and CTA Cardio: S1, S2 normal; no murmurs, rubs or gallops Abdomen: soft, tender, bowel sounds present Extremities: no clubbing, cyanosis, or edema Neuro: no focal deficits Pain: pain controlled with Dilaudid Sedation: not sedated. Airway: room air Monitors & Access Lines: PIV, 1. Date inserted 09/26/2020. Ventilator N/A PA Catheter: N/A Infusions: None Drains: none Labs: CBC BMP PT/INR WBC (10*3/L) Date Value 09/27/2020 8.91 NA (mmol/L) Date Value 09/27/2020 142 No results found for: PT RBC (10*6/L) Date Value 09/27/2020 3.72 (L) K (mmol/L) Date Value 09/27/2020 5.5 (H) INR (no units) Date Value 09/27/2020 1.8 PLT (10*3/L) Date Value 09/27/2020 183 CALCIUM (mg/dL) Date Value 09/27/2020 7.1 (L) HGB (g/dL) Date Value 09/27/2020 10.7 (L) CL (mmol/L) Date Value 09/27/2020 113 (H) aPTT HCT (%) Date Value 09/27/2020 32.3 (L) BUN (mg/dL) Date Value 09/27/2020 96 (H) APTT Patient (Seconds) Date Value 09/26/2020 34 CREATININE (mg/dL) Date Value 09/27/2020 1.29 (H) LFTs Recent Labs 09/26/20 1049 AST 1,750* ALT 968* ALKPHOS 1,561* BILIT 4.7* ABG N/A Admission CXR Results: The heart and great vessels are normal. The lungs are overinflated but clear. Radiology: Ct Abdomen Pelvis Wo Contrast Result Date: 09/26/2020 1. [id number] amount of gas surrounding the distal esophagus and GE junction. Findings are concerning for esophageal perforation gas tracking superiorly mediastinum. Correlate clinically. Recommend surgical consultation. 2. Distal esophagus and measures moderately distended with hyperattenuating material. 3. Cachexia. 4. Additional findings as above. Us Abdomen Limited Result Date: 09/26/2020 Right kidney is echogenic concerning for underlying chronic medical renal disease. Otherwise, unremarkable right upper quadrant ultrasound. Barrium Swallow No evidence to suggest esophageal perforation or contrast Extravasation. Bird's beak like narrowing of the distal esophagus near the GE junction, and proximaldilatation, is consistent with achalasia. Nonspecific internal filling defects suggest prior ingested material. Findings are similar to the prior study from August 29, 2020. Assessment & Plan Tahir Sanches Jr. is a 35 year old male with esophageal stricture admitted to SICU for possible esophageal perforation. Previously was worked up for GE junction narrowing (achalasia vs stricture), but EGD deferred due to cocaine use. Patient hemodynamically stable but presenting with SONDRA and acute liver failure. UGI series for further workup revealed achalasia. Neurology: history of bipolar 1 and schizophrenia; calm and cooperative, having diffuse pain - Will change from morphine to dilaudid due to SONDRA Cardiovascular: hemodynamically stable, dehydrated, troponin 0.026 - hydrate and continue to monitor Pulmonary: no respiratory distress - O2 per protocol Gastrointestinal: possible esophageal perforation - NPO - UGI series - IV protonix 40mg - Antiemetics prn Renal/Electrolytes: SONDRA with Cr 1.42 on admission likely secondary to dehydration given history of emesis. Acute liver failure (ALT 968, AST 1750, AlkPhos 1561). - 1 liter bolus of LR - D5 1/2NS @150ml/hr - Monitor BMP Q12H, hepatic function QD and coags QD Endocrinology: initially hypoglycemic (glucose 48) on admission but normoglycemic now - Continue D51/2 NS infusion and monitor blood glucose Infectious Disease: COVID positive on 09/20/20 (negative on this admission 09/26/2020), syphilis positive on 08/24/20, negative for HCV, HBV - Zosyn - Follow-up BCx 09/26/2020 Hematology: Initial hemoglobin of 15.3 (hemoconcentrated); now 10.7 after hydration - Daily CBC DVT Prophylaxis: lovenox, SCD's Fernando Pneny, 09/27/2020 5:28 AM SICU Service INE CLOTHING REPLACER Associated attestation - Star Ashford MD - 09/27/2020 10:38 AM CSTI personally examined the patient on 09/27/[address] Penny's resident note as written . I actively participated in the decision-making process. Please see the resident's note for additional details. Will address feeding today. Star Ashford MD 09/27/2020 10:37 AM Fernando Penny, - 09/26/2020 7:28 PM CSTSummary: SICU ADMIT NOTE SICU ADMIT NOTE Date of Service: 09/26/2020 Time: 7:28 PM Admitting Service: Cardiothoracic Surgery Admission Diagnosis: possible esophageal perforation HPI Tahir Sanches Jr. is a 35 year old male with PMH bipolar 1, schizophrenia, GE junction narrowing (possible achalasia vs. stricture) initially presenting to [facility] for syncopal episode in [facility] morning of 09/26/2020. Transferred to [facility] for CT findings concerning for possible esophageal perforation at GE junction. Endorses episodes of non- bloody, non-bilious emesis. Recently discharged on 08/30/20 for GE junction narrowing, EGD deferred at the time due to positive UDS (cocaine). At the time, patient complaining of dysphagia, hypokalemia, weight loss. Was counseled to avoid solid foods due to risks of aspiration and esophageal rupture. Upon presentation, patient AFVSS. Labs showing acute liver failure, SONDRA, UTI. CT surgery planning for strict NPO and UGI series. Patient stated that he has had N/V x 5 days. He c/o "pain all over", and states that he has lost about 40 lbs. In the past 6 months. He tested positive for COVID-19 about a week ago but has never had any symptoms. He stated that last used illicit drugs about 2 weeks ago (cocaine). Patient is a poor historian, most of history per primary team and chart review. History Past Medical History: Diagnosis Date Bipolar 1 disorder GERD (gastroesophageal reflux disease) Manic affective disorder with recurrent episode Schizophrenia History reviewed. No pertinent surgical history. Social History Socioeconomic History Marital status: Single [...] file Gets together: Not on file Attends islam service: Not on file Active member of [...] file Social History Narrative Not on file Medications Current Medications: Current Facility-Administered Medications Medication Dose Route Frequency Last Rate Last Admin D5W 0.9% NaCl (NS) IV infusion 1,000 mL 1,000 mL IV Infusion CONTINUOUS [START ON 09/27/2020] enoxaparin (LOVENOX) injection 40 mg 40 mg Subcutaneous DAILY morpHINE injection 4 mg 4 mg Slow IV Push Q4HPRN ondansetron (ZOFRAN (PF)) injection 4 mg 4 mg Slow IV Push Q6HPRN pantoprazole (PROTONIX) 40 mg in NaCl 0.9% (NS) 100 mL MINI-BAG 40 mg IV Piggyback Q24H piperacillin-tazobactam (ZOSYN) 3.375 g in NaCl 0.9% (NS) 100 mL MINI-BAG 3.375 g IV Piggyback Q6H ABX Pre-op/Pre-admission Medications No current facility-administered medications on file prior to encounter. Current Outpatient Medications on File Prior to Encounter Medication Sig Dispense Refill ergocalciferol, vitamin d2, 1,250 mcg (50,000 unit) capsule Take 1 capsule by mouth weekly for 5doses. 5 capsule 0 nitroglycerin 0.[address] 1 tablet under the tongue before meals. 90 tablet 2 omeprazole 40 mg capsule Take 1 capsule by mouth daily. 30 capsule 2 ziprasidone (GEODON) 80 mg capsule Take 80 mg by mouth 2 (two) times daily with meals. divalproex sodium (DEPAKOTE ORAL) Take by mouth. guanfacine HCl (TENEX ORAL) Take by mouth. sertraline HCl (ZOLOFT ORAL) Take by mouth. Allergies No Known Allergies Physical Exam Vitals: 09/26/20 1600 BP: (!) 128/99 Pulse: 59 Resp: 17 Temp: 35.6 C (96 F) SpO2: 96% General: alert and oriented x 4 (person, place, date/time and situation); c/o pain all over and nausea Pulm: No cough; diminished and CTA Cardio: S1, S2 normal; no murmurs, rubs or gallops Abdomen: soft, tender, bowel sounds Extremities: no clubbing, cyanosis, or edema Neuro: no focal deficits Pain: pain controlled with Morphine Sedation: not sedated. Airway: room air Monitors & Access Lines: PIV, 1. Date inserted 09/26/2020. Ventilator N/A PA Catheter: N/A Infusions: None Drains: none Labs: CBC BMP PT/INR WBC (10*3/L) Date Value 09/26/2020 10.59 NA (mmol/L) Date Value 09/26/2020 143 No results found for: PT RBC (10*6/L) Date Value 09/26/2020 5.37 K (mmol/L) Date Value 09/26/2020 6.1 (HH) INR (no units) Date Value 09/26/2020 1.6 PLT (10*3/L) Date Value 09/26/2020 288 CALCIUM (mg/dL) Date Value 09/26/2020 8.7 HGB (g/dL) Date Value 09/26/2020 15.3 CL (mmol/L) Date Value 09/26/2020 105 aPTT HCT (%) Date Value 09/26/2020 46.3 BUN (mg/dL) Date Value 09/26/2020 101 (H) APTT Patient (Seconds) Date Value 09/26/2020 34 CREATININE (mg/dL) Date Value 09/26/2020 1.42 (H) LFTs Recent Labs 09/26/20 1049 AST 1,750* ALT 968* ALKPHOS 1,561* BILIT 4.7* ABG N/A Admission CXR Results: The heart and great vessels are normal. The lungs are overinflated but clear. Radiology: Ct Abdomen Pelvis Wo Contrast Result Date: 09/26/2020 1. Nvydl-[id number]-ykufyyrl amount of gas surrounding the distal esophagus and GE junction. Findings are concerning for esophageal perforation gas tracking superiorly mediastinum. Correlate clinically. Recommend surgical consultation. 2. Distal esophagus and measures moderately distended with hyperattenuating material. 3. Cachexia. 4. Additional findings as above. Us Abdomen Limited Result Date: 09/26/2020 Right kidney is echogenic concerning for underlying chronic medical renal disease. Otherwise, unremarkable right upper quadrant ultrasound. Assessment & Plan Tahir Sanches Jr. is a 35 year old male with esophageal stricture admitted to SICU for possible esophageal perforation. Previously was worked up for GE junction narrowing (achalasia vs stricture), but EGD deferred due to cocaine use. Patient hemodynamically stable but presenting with SONDRA and acute liver failure. UGI series for further workup. Neurology: history of bipolar 1 and schizophrenia; calm and cooperative, having diffuse pain - Will change from morphine to dilaudid due to SONDRA Cardiovascular: hemodynamically stable, dehydrated, troponin 0.026 - hydrate and continue to monitor Pulmonary: no respiratory distress - O2 per protocol Gastrointestinal: possible esophageal perforation - NPO - UGI series - IV protonix 40mg - Antiemetics prn Renal/Electrolytes: SONDRA with Cr 1.42 on admission likely secondary to dehydration given history of emesis. Acute liver failure (ALT 968, AST 1750, AlkPhos 1561). - 1 liter bolus of LR - D5 1/2NS @150ml/hr - Follow-up AM BMP, hepatic function, coags Endocrinology: hypoglycemic (glucose 48) on admission - Now increased to 81; will add D51/2 NS infusion and continue to monitor Infectious Disease: COVID positive on 09/20/20 (negative on this admission 09/26/2020), syphilis positive on 08/24/20, negative for HCV, HBV - Zosyn - Follow-up BCx 09/26/2020 Hematology: Hgb 15.3 - Follow-up AM CBC DVT Prophylaxis: lovenox, SCD Fernando Penny, DO 09/26/2020 8:31 PM SICU Service INE CLOTHING REPLACER Associated attestation - Brooks Tafoya Jr., MD - 09/26/2020 11:[address]After discussion with Dr. Penny, I examined this patient with Dr. Penny. I agree with resident's note as written. I spent 37 minute(s) on date 09/26/2020 personally caring for this critically ill patient on the unit/floor. The patient was critically ill due to acute hepatic failure, acute renal failure, hyperkalemia, dehydration, hypoglycemia, potential esophageal perforation, COVID positive 09/20, but negative this admission and severe protein malnutrition. I performed the following services: direct hands-on care of the patient, discussed the patient's care with other medical staff, reviewed imaging studies and reviewed test results, and interpretation ofphysiologic parameters. Brooks Tafoya Jr, MD 09/26/2020 11:18 PM Anesthesia/Critical Care Jennifer Yang MD - 09/26/2020 6:30 PM CST Cardiothoracic Surgery H&P Date of Service:09/26/20 IDENTIFYING DATA Patient name: Tahir Sanches Jr. : 1985 Primary care physician: PATIENT DOES NOT HAVE A PCP HISTORY OF PRESENT ILLNESS Tahir Sanches Jr., 35yoM with h/o schizophrenia and bipolar disorder presented to OSH with reports of syncopal episode today. Further evaluation revealed SONDRA with creat 1.4, elevated transaminases and INR, hypoglycemia and hyperkalemia. Noncontrast CT revealed air around GE junction, with concern for perforation. After antiemetics and zosyn were administered, he was transferred to higher levelof care. Pt states he has minimal epigastric pain at this time, and requests food. Vitals all normalen route and at time of arrival. States he had dysphagia and difficulty tolerating meals over the last year. Also reports 60lb weight loss in 12 months. Pt was noted to have dilated esophagus on prior i maging studies. He was scheduled for EGD last month but was unable to undergo procedure due to recreational drug use. Has been in prison several times in the last few months and has not been taking his home medications. Last cocaine use 3 weeks ago, last IV drug use 3 months ago, and used marijuana one week ago. Denies fever, chills, chest pain, nausea, vomiting, SOB. CURRENT MEDICATIONS & ALLERGIES History of Steroid Therapy: no Allergies: No Known Allergies Medications prior to Admission: No current facility-administered medications on file prior to encounter. Current Outpatient Medications on File Prior to Encounter Medication Sig Dispense Refill ergocalciferol, vitamin d2, 1,250 mcg (50,000 unit) capsule Take 1 capsule by mouth weekly for 5doses. 5 capsule 0 nitroglycerin 0.[address] 1 tablet under the tongue before meals. 90 tablet 2 omeprazole 40 mg capsule Take 1 capsule by mouth daily. 30 capsule 2 ziprasidone (GEODON) 80 mg capsule Take 80 mg by mouth 2 (two) times daily with meals. divalproex sodium (DEPAKOTE ORAL) Take by mouth. guanfacine HCl (TENEX ORAL) Take by mouth. sertraline HCl (ZOLOFT ORAL) Take by mouth. Hospital Medications: No current facility-administered medications for this encounter. REVIEW OF SYSTEMS As per HPI HISTORIES PAST MEDICAL HISTORY Past Medical History: Diagnosis Date Bipolar 1 disorder GERD (gastroesophageal reflux disease) Manic affective disorder with recurrent episode Schizophrenia PAST SURGICAL HISTORY History reviewed. No pertinent surgical history. SOCIAL HISTORY Social History Tobacco Use Smoking status: Not on file Substance Use Topics Alcohol use: Not on file Drug use: Not on file FAMILY HISTORY No family history on file. PHYSICAL EXAMINATION BP (!) 128/99 | Pulse 59 | Temp 35.6 C (96 F) (Oral) | Resp 17 | Wt 49.9 kg (110 lb) | [id number]% | BMI 17.75 kg/m General: alert, malnourished Head: normocephalic Eyes: conjunctivae and sclerae normal Respiratory: Respiratory effort:normal effort on room air Cardiovascular: regular rhythm per monitor Gastrointestinal: abdomen minimally tender epigastrium Skin: warm, dry Neurologic: oriented to person but not to place Muscular: cachectic, temporal wasting MEDICAL DECISION MAKING LABS CBC BMP PT/INR WBC (10*3/L) Date Value 09/26/2020 10.59 NA (mmol/L) Date Value 09/26/2020 143 No results found for: PT RBC (10*6/L) Date Value 09/26/2020 5.37 K (mmol/L) Date Value 09/26/2020 6.1 (HH) INR (no units) Date Value 09/26/2020 1.6 PLT (10*3/L) Date Value 09/26/2020 288 CALCIUM (mg/dL) Date Value 09/26/2020 8.7 HGB (g/dL) Date Value 09/26/2020 15.3 CL (mmol/L) Date Value 09/26/2020 105 aPTT HCT (%) Date Value 09/26/2020 46.3 BUN (mg/dL) Date Value 09/26/2020 101 (H) APTT Patient (Seconds) Date Value 09/26/2020 34 CREATININE (mg/dL) Date Value 09/26/2020 1.42 (H) GLUCOSE (mg/dL) Date Value 09/26/2020 48 (LL) CO2 TOTAL (mmol/L) Date Value 09/26/2020 30 No results found for: HGBA1C ALBUMIN (g/dL) Date Value 09/26/2020 4.2 No components found for: KTPRO ALT(SGPT) (U/L) Date Value 01/10/2019 15 ALTv (U/L) Date Value 09/26/2020 968 (H) AST(SGOT) (U/L) Date Value 09/26/2020 1,750 (H) No components found for: ALKP No components found for: TROP I have reviewed the patient's labs. Significant abnormals are LFTs, UA, creat. RADIOLOGY CT Scan: IMPRESSION 1. [id number] amount of gas surrounding the distal esophagus and GE junction. Findings are concerning for esophageal perforation gas tracking superiorly mediastinum. Correlate clinically. Recommend surgical consultation. 2. Distal esophagus and measures moderately distended with hyperattenuating material. 3. Cachexia. ASSESSMENT & PLAN 35yoM with history of dysphagia and radiologic evidence of possible perforation at GEJ. Patient is currently hemodynamically stable but has acute liver failure, SONDRA, and UTI. Plan for strict NPO and UGI study. Discussed possibility of need for invasive procedure at a later time pending UGI findings and improvement of multisystem organ dysfunction. Jennifer Yang MD Cardiothoracic Surgery Fellow 09/26/20 INE CLOTHING REPLACER Associated attestation - Delvis Garcia MD - 09/28/2020 8:55 AM CSTAfter discussion with the resident, I examined this patient. I agree with the resident's note as written.documented in this encounter Consult Notes Lynda Snyder N - 09/29/2020 12:23 PM CSTAssociated Order(s): CONSULT PS FOOD AND NUTRITION - ADULT Medical Nutrition Therapy- Consult Note: Reason For Consultation: Physician consult: Routine flower maker for positive initial nutrition screen: Low BMI Malnutrition Assessment: Unable to perform full NFPE due to Covid precautions) Nutritional Diagnosis: Severe protein-calorie malnutrition SGA Rating: Severely Malnourished History of Present Illness: Tahir Sanches Jr. is a 35 year old male initially presenting to [facility] for syncopal episode in [facility] morning of 09/26/2020. Transferred to [facility] for CT findings concerning for possible esophageal perforation at GE junction. Endorses episodes of non- bloody, non-bilious emesis. Recently discharged on 08/30/20 for GE junction narrowing, EGD deferred at the time due to positive UDS (cocaine). At the time, patient complaining of dysphagia, hypokalemia, weight loss. Was counseled to avoid solid foods due to risks of aspiration and esophageal rupture. Upon presentation, patient AFVSS. Labs showing acute liver failure, SONDRA, UTI. CT surgery planning for strict NPO and UGI series. Patient stated that he had N/V x 5 days. He c/o "pain all over", and states that he has lost about 40 lbs. In the past 6 months. He tested positive for COVID-19 about a week ago but has never had any symptoms. He stated that last used illicit drugs about 2 weeks ago (cocaine). PMH/PSH: Past Medical History: Diagnosis Date Bipolar 1 disorder GERD (gastroesophageal reflux disease) Manic affective disorder with recurrent episode Schizophrenia History reviewed. No pertinent surgical history. PSH noted. GI and Nutrition Related Findings: Symptoms: Nausea Difficulty: Swallowing GI tract alteration: N/A Alternative means of nutrition: N/A General: N/A Medications: I have reviewed the medications currently ordered in the EMR located under the medications andMAR tabs. Current medications include: Current Facility-Administered Medications: [START ON 09/30/2020] lidocaine (LIDODERM) 5 % (700 mg/patch) patch 1 Patch, 1 Patch, Topical, DAILY, Tato Gallegos DO acetaminophen (TYLENOL) tablet 325 mg, 325 mg, Oral, Q6HPRN, Laure Alejandre MD D5W 0.45% NaCl (1/2NS) IV infusion 1,000 mL, 1,000 mL, IV Infusion, CONTINUOUS, Tato Gallegos DO, Last Rate: 150 mL/hr at 09/29/20 0524, 1,000 mL at 09/29/20 0524 dextrose 50 % in water (D50W) injection 25 mL, 25 mL, Slow IV Push, PRN - SEE INSTRUCTIONS, Rolan Mckinney MD glucagon (GLUCAGEN DIAGNOSTIC KIT) injection 1 mg, 1 mg, Intramuscular, PRN, Rolan Mckinney MD phytonadione (VITAMIN K) 10 mg in NaCl 0.9% (NS) piggyback, 10 mg, IV Piggyback, DAILY, Tato Gallegos DO, 10 mg at 09/29/20 1107 Sliding Scale Insulin - Aspart (NOVOLOG) + Fsbg Testing, , Subcutaneous, TID MEALS+HS, Rolan Mckinney MD, Stopped at 09/28/20 0800 thiamine (VITAMIN B1) 100 mg, foLIC acid (FOLATE) 1 mg, multivitamin adult (INFUVITE ADULT) 3,300 unit- 150 mcg/10 mL 10 mL in D5W 0.45% NaCl (1/2NS) IV Solution, , IV Infusion, DAILY, Rolan Mckinney MD, Last Rate: 150 mL/hr at 09/29/20 1107, New Bag at 09/29/20 1107 enoxaparin (LOVENOX) injection 40 mg, 40 mg, Subcutaneous, DAILY, Naty Francois MD, 40 mg at 09/29/20 0918 ondansetron (ZOFRAN (PF)) injection 4 mg, 4 mg, Slow IV Push, Q6HPRN, Naty Francois MD, 4 mg at 09/26/202125 valproate (DEPACON) 750 mg in D5W piggyback, 750 mg, IV Piggyback, DAILY, Naty Francois MD, 750 mg at 09/29/20 0918 Lab and Medical Test Results: NA (mmol/L) Date Value 09/29/2020 139 K (mmol/L) Date Value 09/29/2020 4.9 CALCIUM (mg/dL) Date Value 09/29/2020 7.4 (L) CL (mmol/L) Date Value 09/29/2020 104 BUN (mg/dL) Date Value 09/29/2020 40 (H) CREATININE (mg/dL) Date Value 09/29/2020 1.10 GLUCOSE (mg/dL) Date Value 09/29/2020 100 CO2 TOTAL (mmol/L) Date Value 09/29/2020 32 (H) ALBUMIN (g/dL) Date Value 09/29/2020 2.9 (L) T PROTEIN (g/dL) Date Value 09/29/2020 6.4 TOTAL BILI (mg/dL) Date Value 09/29/2020 2.7 (H) BILI UNCON (mg/dL) Date Value 09/28/2020 2.7 (H) BILI CONJ (mg/dL) Date Value 09/28/2020 0.0 ALT(SGPT) (U/L) Date Value 01/10/2019 15 ALTv (U/L) Date Value 09/29/2020 439 (H) AST(SGOT) (U/L) Date Value 09/29/2020 304 (H) ALK PHOS (U/L) Date Value 09/29/2020 773 (H) Nutrition Assessment: Age: [age] year old Sex: male Ht: 167.6 cm / 5'6" Ht Readings from Last 3 Encounters: 08/23/20 1.676 m (5' 6") 05/02/20 1.676 m (5' 6") Current Wt: 49.9 kg/ 110 lb BMI: Body mass index is 17.72 kg/m. (Underweight ) IBW for Ht: 64.54 kg +/- 6 kg %IBW: 77% Weight History: Wt Readings from Last 10 Encounters: 09/29/20 49.8 kg (109 lb 12.6 oz) 09/20/20 49.9 kg (110 lb) 08/23/20 49.9 kg (110 lb) 05/02/20 63.5 kg (140 lb) 01/10/19 72.6 kg (160 lb) Inflammatory Markers: N/A Current Dietary Order(s): Full Liquid Diet; DOUBLE PORTIONS Nepro (1.8 kcal/mL, low electrolyte) EMR documented food allergies/intolerance/cultural preferences: [facility] Nutrition & Diet History: Patient currently on Full Liquid diet and tolerating feeds. No N/V/D/C at time of visit. Patient reports being very hungry and wants to eat more. Recommend Nepro TID supplementation during duration of Full Liquid Diet. Continue double portions with meals. Will continue to follow closely. Estimated Daily Nutritional Needs: Calories: 2250 kcal/day = 45 kcal/kg current wt = 35 kcal/kg IBW Protein: 20 % of kcal need/day = 113 g/day = 2.2 g/kg current wt = 1.8 g/kg IBW Fluid: 2250 mL/day or per MD; adjust per acute needs Nutrition Diagnosis: Inadequate oral intake related to insufficient intake to meet daily needs as evidenced by Full-Liquid Diet Nutrition Plan of Care: Intervention(s): 1. Continue Full Liquid Diet with double portions 2. Continue Nepro TID 3. Monitor intake, weight, and labs daily. 4. Recommend MVI for PCM. Goal(s): 1. Patient will consume adequate calories and protein to meet >75% estimated needs daily. 2. Patient will drink 2-3 nutrition drink supplements daily. D/C Planning: Pending Nutrition Monitoring and Evaluation: A registered dietitian will f/u as indicated to report nutrition related information and to revise the recommended nutrition intervention(s); please call with questions or concerns, thank-you. Lynda Snyder RD, LD Clinical Dietitian RD Office: [id number] signed by Lynda Snyder at 09/29/2020 2:16 PM Ministerio Leon MD - 09/27/2020 5:35 PM CSTAssociated Order(s): CONSULT GASTROENTEROLOGY Department of Gastroenterology & Hepatology Consult Note Requesting Physician: Delvis Garcia MD Service: Surgical Reason for Consultation: "EGD" Date of Service: 09/27/2020 CHIEF COMPLAINT: Syncopal episode History of Present Illness Tahir Sanches Jr. is a 35 year old Black or male with past medical history Right inguinal hernia, Bipolar disorder, Schizophrenia, Depression, Anxiety, GERD, dysphagia who presents with complaints of Syncopal episode. Mr. Sanches presented after a syncopal episode on 09/26. States that he "blacked out". He is admitted to the cardiothoracic surgery team after there was initial concern for possible esophageal perforation. GI is consulted for consideration of EGD and also for elevated liver chemistries. The patient has been having issues with solid and liquid dysphagia since around March 2020. Has a feeling like food gets stuck in his throat and has had to regurgitate food. Also reports about 60 pound weight loss over the past year. He denies any prior EGD. GI was consulted during a previous August 2020 admission for dysphagia. EGD had been planned however the patient was not following recommended diet (leaving the building to eat) and had persistently positive UDS for cocaine and amphetamines. EGD was aborted. The patient denies any prior history of liver disease. Takes Tylenol occasionally, several 250 mg capsules. No herbal supplements. No chest pain, shortness of breath. Had a syncopal episode as above. Reports cocaine use the day prior to arrival (IV route). Of note his UDS was positive for opiates. PAST MEDICAL HISTORY Past Medical History: Diagnosis Date Bipolar 1 disorder GERD (gastroesophageal reflux disease) Manic affective disorder with recurrent episode Schizophrenia PAST SURGICAL HISTORY History reviewed. No pertinent surgical history. FAMILY HISTORY No family history on file. [...] file Gets together: Not on file Attends islam service: Not on file Active member of [...] Social History Narrative Not on file ROS: 12-point review of systems negative other than above in HPI PHYSICAL EXAM: BP 120/73 | Pulse (!) 42 | Temp 35.8 C (96.4 F) | Resp 15 | Wt 49.9 kg (110 lb) | SpO2 98%| BMI 17.75 kg/m Constitutional: cachectic EENT: no scleral icterus, no conjunctival pallor Cardiovascular: RRR Respiratory: non-labored Gastrointestinal: Flat, non-tender, non distended MSK: MAEW Skin: no rash Neurologic: No asterixis Psychiatric: normal affect LABORATORY HGB (g/dL) Date Value 09/27/2020 11.9 (L) 09/27/2020 10.2 (L) 09/27/2020 10.7 (L) PLT (10*3/L) Date Value 09/27/2020 177 09/27/2020 159 09/27/2020 183 INR (no units) Date Value 09/27/2020 1.8 09/27/2020 1.8 09/27/2020 Comment: Normal INR <1.1; Warfarin Therapeutic range 2.0 to 3.0 or 2.5 to 3.5, depending upon the indications. Questionable results per , test credited This is a corrected result. Previous result was 3.2 on 09/27/2020 at 0107 MACHINE CLOTHING REPLACER BMP NA (mmol/L) Date Value 09/27/2020 141 K (mmol/L) Date Value 09/27/2020 5.7 (H) CALCIUM (mg/dL) Date Value 09/27/2020 7.7 (L) CL (mmol/L) Date Value 09/27/2020 111 (H) BUN (mg/dL) Date Value 09/27/2020 85 (H) CREATININE (mg/dL) Date Value 09/27/2020 1.42 (H) GLUCOSE (mg/dL) Date Value 09/27/2020 69 (L) CO2 TOTAL (mmol/L) Date Value 09/27/2020 22 (L) Hepatic Function Panel ALBUMIN (g/dL) Date Value 09/27/2020 3.4 (L) T PROTEIN (g/dL) Date Value 09/27/2020 7.2 TOTAL BILI (mg/dL) Date Value 09/27/2020 3.2 (H) BILI UNCON (mg/dL) Date Value 09/27/2020 2.7 (H) BILI CONJ (mg/dL) Date Value 09/27/2020 0.0 ALT(SGPT) (U/L) Date Value 01/10/2019 15 ALTv (U/L) Date Value 09/27/2020 670 (H) AST(SGOT) (U/L) Date Value 09/27/2020 898 (H) ALK PHOS (U/L) Date Value 09/27/2020 1,095 (H) RADIOLOGY: Barium Swallow 09/26 IMPRESSION 1. No evidence to suggest esophageal perforation or contrast extravasation. 2. Bird's beak like narrowing of the distal esophagus near the GE junction, and proximal dilatation, is consistent with achalasia. Nonspecific internal filling defects suggest prior ingested material. RUQ U/S 09/26: IMPRESSION Right kidney is echogenic concerning for underlying chronic medical renal disease. Otherwise, unremarkable right upper quadrant ultrasound. PREVIOUS ENDOSCOPY: none ASSESSMENT and PLAN Tahir Sanches Jr. is a 35 year old male with PMH as listed above, GI consulted for acute liver injury and dysphagia. Acute Liver Injury Dysphagia COVID + Severe protein calorie malnutrition GI is consulted for dysphagia and acute liver injury. The patient has significant liver injury with AST 1750, ALT 968, Alk phos 1561, t bili 4.7 on 09/26. His INR has been elevated >1.5. He is not significantly encephalopathic and does not have asterixis so does not meet criteria for acute liver failure. Differential includes ischemic hepatitis from syncopal event, IV cocaine use. Differential also includes acute viral hepatitis, drug induced liver injury, less likely autoimmune hepatitis. Imaging makes an obstructive process unlikely. While his dysphagia needs to be addressed, his most pressing issue is his acute liver injury - INR, CBC, CMP q 12-24 hours - please order Hepatitis A IgM, HBV core IgG and IgM, HBV PCR, HCV PCR , LOYD, IgG - IV vitamin K 10 mg daily x3 days - consider ordering COVID PCR - avoid hypotension - Neuro checks every 4 hours - Strictly avoid narcotics or hepatotoxic medications - will defer advancement of diet per surgery recommendations - recommend recruiting consultant consult - timing of endoscopy pending course of liver injury, covid pcr result Patient was seen and discussed with Dr. Mcgowan GI will continue to follow. Please call with any questions. Ministerio Vital Gastroenterology Fellow, PGY-4 Division of Gastroenterology and Hepatology INE CLOTHING REPLACER Associated attestation - Rell Mcgowan MD - 09/28/2020 10:22 AM CSTI personally examined the patient on 09/27/[address] Vital's note with the following addition(s): the patient has a clinical history and barium swallow findings highly-suggestive of achalasia. His barium swallow this admission does not show matthieu evidence of perforation so the etiology ofthe small volume of gas around the distal esophagus seen on CT scan is unclear. He would benefit from EGD and esophageal manometry to further evaluate his anatomy and aid in future treatment planning,he currently is COVID-positive and more importantly has an acute hepatitis of undetermined etiology which requires further evaluation. He does not current have evidence of acute hepatic failure. DDx includes acute viral hepatitis given his history of drug use, ischemia, drug-induced liver injury, less likely autoimmune hepatitis. Given that EGD/manometry are non- emergent they will need to be deferred until after he has fully cleared his COVID infection and his acute hepatitis has been adequately evaluated/treated. Recommend liquid diet for now given his previous esophagea symptoms and suspicionfor achalasia. Would also benefit from nutrition consultation. I actively participated in the decision-making process. Please see the fellow's note for additional details. Rell Mcgowan MD [facility] Division of Gastroenterology and Hepatology documented in this encounter Nursing Notes Vita Horne RN - 10/02/2020 2:30 PM CSTPatient refusing care and adamant about leaving. After educating the patient and speaking with the team, the patient still decided to leave against medical advice. AMA form signed and in the patients chart. Education material offered and refused. PIV x2 taken out. RN took the patient down via wheelchair at 1426. Amanuel Trujillo RN - 10/02/2020 3:12 AM CSTPatient very non -compliant with diet, constantly pressing call light, asking for solid food, explained the risks, but still refuses to comply, dr. Jenkins notified ,[facility] documented in this encounter ED Notes Stephanie Owen RN - 09/26/2020 11:23 AM CSTReports to Joselin MACK rene Torres RN - 09/26/2020 10:01 AM CSTPatient complaining of body aches x2 months. Appears cachectic ohana Baltazar PAC - 09/26/2020 9:58 AM CST [facility] Emergency Department Note Patient Name: Tahir Sanches Jr. Date of : 1985 35 year old male Treatment Room: [place] [address] Primary Care Physician: PATIENT DOES NOT HAVE A PCP Patient Escorted by: Law enforcement [[id number]] Mode of Arrival: EMS - [place] [[id number]] EMS Treatment Prior to ED Arrival: ADULT FAMILY HOME PROGRAM MANAGER treatment: None Travel and Exposure Screening: Symptoms Does patient have any of these symptoms?: (not recorded) Exposure Screening Has patient had contact with someone with a communicable disease in the last month?: (not recorded) Diseases exposed to:: (not recorded) Is Patient ?: (not recorded) Exposure Date: (not recorded) Chief Complaint: Chief Complaint Patient presents with Body Aches History of Present Illness: Triage note: "Patient complaining of body aches x2 months. Appears cachectic" The patient presents from the [facility] for evaluation of weakness and body aches. He said that hehas not been feeling well for the past few months and was just discharged from [facility] 3 weeks ago for an esophageal stricture. When asked specifically about whether he has pain specific to anywhere, he said that he just hurts all over. He denies any sudden onset of abdominal or chest pain other than what he has been having. No blood in his vomit or stool. He said that when he was in the hospital recently, his physicians were not able to do a scope and were waiting on him to be drug free. He was told to be on a liquid diet but reports that has not been able to comply with a liquid diet because he said that the prison continued feeding him solid foods and "just doesn't care." he has been in custody for the past week. He has continued having nausea and vomiting every day and states that he cannot keep any fluids or food down. No fever, cough, congestion. No SOB. Patient was COVID positive last week. Past Medical History/Immunizations: Past Medical History: Diagnosis Date Bipolar 1 disorder GERD (gastroesophageal reflux disease) Manic affective disorder with recurrent episode Schizophrenia Tetanus received in last 5 years: No Childhood immunizations: Up-to-date Allergies: No Known Allergies Past Social History: Substance & Sexual Activity No substance use or sexual activity history on file. Past Surgical History: History reviewed. No pertinent surgical history. Review of Systems: Review of Systems Constitutional: Positive for fatigue. HENT: Negative. Eyes: Negative. Respiratory: Negative. Cardiovascular: Positive for chest pain. Gastrointestinal: Positive for nausea and vomiting. Genitourinary: Negative. Musculoskeletal: Positive for myalgias. Skin: Negative. Neurological: Negative. Psychiatric/Behavioral: Negative. Physical Exam: ED Triage Vitals Weight 09/26/20 1004 49.9 kg (110 lb) Actual or estimated 09/26/20 1004 Estimated by patient/family report Height -- BP 09/26/20 1000 (!) 112/100 Pulse 09/26/20 1000 72 Resp 09/26/20 1004 15 Temp 09/26/20 1004 34.6 C (94.2 F) Temp source 09/26/20 1004 Oral SpO2 09/26/20 1100 96 % Measured on -- Physical Exam Vitals signs and nursing note reviewed. Exam conducted with a rubber and plastics worker present. Constitutional: General: He is not in acute distress. Appearance: He is well-developed. He is cachectic. He is ill-appearing. He is not toxic-appearingor diaphoretic. HENT: Head: Normocephalic and atraumatic. Eyes: General: Right eye: No discharge. Left eye: No discharge. Conjunctiva/sclera: Conjunctivae normal. Cardiovascular: Rate and Rhythm: Normal rate and regular rhythm. Heart sounds: Normal heart sounds. No murmur. No friction rub. No gallop. Pulmonary: Effort: Pulmonary effort is normal. No respiratory distress. Breath sounds: Normal breath sounds. No stridor. No wheezing, rhonchi or rales. Skin: General: Skin is warm and dry. Neurological: General: No focal deficit present. Mental Status: He is alert and oriented to person, place, and time. Psychiatric: Mood and Affect: Mood normal. Behavior: Behavior normal. Thought Content: Thought content normal. Judgment: Judgment normal. Radiology: Hospital Encounter on 09/26/20 US ABDOMEN LIMITED Narrative RIGHT UPPER QUADRANT ABDOMINAL SONOGRAM TECHNIQUE: Grayscale and limited color Doppler images of the right upper quadrant of the abdomen were obtained. INDICATION: 09/26/2020 COMPARISON: FINDINGS: Liver does not appear enlarged. No focal hepatic lesions identified to the extent visualized. Liver demonstrates normal hepatic echotexture and echogenicity. Patent main portal vein with normal hepatopedal flow. Main portal vein measures 0.6 cm in AP diameter at abisai hepatis. No cholelithiasis. No pericholecystic free fluid or inflammatory change. Normal gallbladder wall thickness measuring 2 mm in thickness. Negative sonographic Calle sign. The common bile duct measures 0.4 cm in AP diameter at abisai hepatis. Visualized portions of the right kidney appear very echogenic. Visualized portions of the pancreatic body and proximal tail appear unremarkable. Proximal abdominal aorta measures 1.7 cm in AP diameter, normal. No abnormal dilatation of the aorta within the mid or distal portions. Impression Right kidney is echogenic concerning for underlying chronic medical renal disease. Otherwise, unremarkable right upper quadrant ultrasound. CT ABDOMEN PELVIS WO CONTRAST Narrative CT abdomen and pelvis without contrast REASON FOR STUDY: Abnormal findings of blood chemistry COMPARISON: None available. TECHNIQUE: Unenhanced multidetector axial CT images from lung bases through proximal thighs. As requested, no IV contrast was used. Coronal and sagittal MPR images also generated. INTRAVENOUS CONTRAST ADMINISTRATION: None. DOSE REPORT (Total DLP mGy*cm): 123. FINDINGS: Lower chest: Mild subsegmental atelectasis. Otherwise, lungs are clear. Hypoattenuating blood pool within the left ventricle suggests anemia. Small to moderate amount of free gas surrounding the distal esophagus and gastroesophageal junction. Gas appears to track superiorly into the mediastinum which is out of [id number]. Moderate amount of hypoattenuating material is seen within moderately distended still esophagus. ABDOMEN AND PELVIS Liver: No focal hepatic lesion identified within limits of technique. Biliary Tract/GB: Moderately distended gallbladder without radiopaque lithiasis. Spleen: No splenomegaly. Pancreas: Pancreas is not distinguished from the adjacent retroperitoneal structures due to scarcity of intra-abdominal fat (cachexia) and lack of intravenous contrast. Adrenals: Not well distinguished from the adjacent retroperitoneal structures. Kidneys: No discernible hydronephrosis or nephrolithiasis. Very limited exam. Bowel: Limited evaluation of bowel due to cachexia and scarcity of intra-abdominal fat. No abnormal bowel dilatation. Moderate amount of gas surrounding the GE junction or distal esophagus with pneumomediastinum. Peritoneum: No discernible free fluid. Free gas surrounding the distal esophagus concerning for esophageal perforation as above. Vasculature: Very limited exam due to lack of intravenous contrast. Lymph Nodes: No discernible bulky lymphadenopathy. Pelvic Organs: Urinary bladder is normal for the degree of distention. Abdominal/Pelvic Wall: Cachexia. BONES: No aggressive or suspicious osseous abnormality. A few tiny subcentimeter intra-articular calcific densities are seen along the medial right hip joint (2:114). Impression 1. Zfulf-ni-ydtaxlfg amount of gas surrounding the distal esophagus and GE junction. Findings are concerning for esophageal perforation gas tracking superiorly mediastinum. Correlate clinically. Recommend surgical consultation. 2. Distal esophagus and measures moderately distended with hyperattenuating material. 3. Cachexia. 4. Additional findings as above. XR CHEST 1 VW Narrative EXAM: XR CHEST 1 VW HISTORY: body aches, hypothermic COMPARISON: None. FINDINGS: The heart and great vessels are normal. The lungs are overinflated but clear. Lab Results (24h): Recent Results (from the past 24 hour(s)) POCT GLUCOSE (AUTOMATED) Collection Time: 09/26/20 10:28 AM Result Value Ref Range POCT GLU 59 (L) 70 - 110 mg/dL CBC WITH DIFF Collection Time: 09/26/20 10:49 AM Result Value Ref Range WBC 10.59 4.20 - 10.70 10*3/L RBC 5.37 4.26 - 5.52 10*6/L HGB 15.3 12.2 - 16.4 g/dL HCT 46.3 38.4 - 49.3 % MCV 86.2 81.7 - 95.6 fL MCH 28.5 26.1 - 32.7 pg MCHC 33.0 31.2 - 35.0 g/dL RDW-SD 47.4 38.5 - 51.6 fL RDW-CV 15.2 12.1 - 15.4 % PLT 288 150 - 328 10*3/L MPV 11.4 9.8 - 13.0 fL NRBC/100 WBC 0.0 0.0 - 10.0 /100 WBCs NRBC x10^3 <0.01 10*3/L GRAN MAT (NEUT) % 60.3 % IMM GRAN % 2.50 % LYMPH % 31.5 % MONO % 5.2 % EOS % 0.0 % BASO % 0.5 % GRAN MAT x10^3(ANC) 6.39 1.99 - 6.95 10*3/uL IMM GRAN x10^3 0.26 (H) 0.00 - 0.06 10*3/uL LYMPH x10^3 3.34 (H) 1.09 - 3.23 10*3/uL MONO x10^3 0.55 0.36 - 1.02 10*3/uL EOS x10^3 <0.03 (L) 0.06 - 0.53 10*3/uL BASO x10^3 0.05 0.01 - 0.09 10*3/uL COMP. METABOLIC PANEL (40384) Collection Time: 09/26/20 10:49 AM Result Value Ref Range NA 143 135 - 145 mmol/L K 6.1 (HH) 3.5 - 5.0 mmol/L CL 105 98 - 108 mmol/L CO2 TOTAL 30 23 - 31 mmol/L AGAP 8 2 - 16 BUN 101 (H) 7 - 23 mg/dL GLUCOSE 48 (LL) 70 - 110 mg/dL CREATININE 1.42 (H) 0.60 - 1.25 mg/dL TOTAL BILI 4.7 (H) 0.1 - 1.1 mg/dL CALCIUM 8.7 8.6 - 10.6 mg/dL T PROTEIN 8.3 (H) 6.3 - 8.2 g/dL ALBUMIN 4.2 3.5 - 5.0 g/dL ALK PHOS 1,561 (H) 34 - 122 U/L ALTv 968 (H) 5 - 50 U/L AST(SGOT) 1,750 (H) 13 - 40 U/L eGFR Calculation (Non-) 56.4 mL/min/1.73m2 eGFR Calculation () 68.4 mL/min/1.73m2 CREATINE KINASE Collection Time: 09/26/20 10:49 AM Result Value Ref Range CK 678 (H) 33 - 194 U/L BLOOD CULTURE SCREEN Collection Time: 09/26/20 10:49 AM Specimen: VENOUS; Blood Result Value Ref Range Blood Culture-Aerobic Culture In Progress No growth PROTHROMBIN TIME / INR Collection Time: 09/26/20 10:51 AM Result Value Ref Range PROTIME PATIENT 18.7 (H) 12.0 - 14.7 Seconds INR 1.6 ACTIVATED PARTIAL THRMPLAS LAURA Collection Time: 09/26/20 10:51 AM Result Value Ref Range APTT Patient 34 23 - 38 Seconds COVID-19 (ID NOW RAPID TESTING) Collection Time: 09/26/20 10:52 AM Specimen: NASOPHARYNGEAL SWAB Result Value Ref Range SARS-CoV-2 Rapid ID NOW Not Detected Not Detected Lactic Acid Whole Blood Collection Time: 09/26/20 10:54 AM Result Value Ref Range LACTIC ACID 2.21 mmol/L URINALYSIS Collection Time: 09/26/20 11:25 AM Result Value Ref Range APPEARANCE Cloudy (A) Clear COLOR Shyla (A) Yellow PH 9.0 (A) 4.8 - 8.0 SP GRAVITY 1.016 1.003 - 1.030 GLU U QUAL Normal Normal BLOOD 2+ (A) Negative KETONES Negative Negative PROTEIN 100 mg/dL (A) Negative UROBILIN 2.0 mg/dL (A) Normal BILIRUBIN Negative Negative NITRITE Negative Negative LEUK ERICK 500/uL (A) Negative RBC/HPF >182 (H) 0 - 3 HPF WBC/HPF 176 (H) 0 - 5 HPF BACTERIA Few (A) Negative WBC CLUMPS 3 (H) <=1 HPF POCT GLUCOSE (AUTOMATED) Collection Time: 09/26/20 12:06 PM Result Value Ref Range POCT GLU 130 (H) 70 - 110 mg/dL TROPONIN I Collection Time: 09/26/20 1:01 PM Result Value Ref Range TROPONIN I 0.026 <=0.034 ng/mL EKG: Sinus bradycardia, HR 59, no peaked T waves or STEMI; no gross changes from previous EKGs Orders and Treatments: Orders Placed This Encounter Procedures XR CHEST [address] ABDOMEN PELVIS WO CONTRAST US ABDOMEN LIMITED Lactic Acid Whole Blood CBC WITH DIFF COMP. METABOLIC PANEL (69409) URINALYSIS CREATINE KINASE BLOOD CULTURE SCREEN TROPONIN I COVID-19 (ID NOW RAPID TESTING) PROTHROMBIN TIME / INR ACTIVATED PARTIAL THRMPLAS LAURA LAB ONLY COVID INTERPRETATION CORTISOL AM POCT GLUCOSE (AUTOMATED) POCT GLUCOSE (AUTOMATED) Orders Placed This Encounter Medications NaCl 0.9% (NS) bolus infusion 1,497 mL DISCONTD: ondansetron (ZOFRAN-ODT) disintegrating tablet 4 mg dexamethasone (DECADRON PHOSPHATE) injection 10 mg dextrose 10% (D10W) bolus infusion 250 mL ondansetron (ZOFRAN (PF)) injection 4 mg piperacillin-tazobactam (ZOSYN) 3.375 g in NaCl 0.9% (NS) 100 mL MINI-BAG albuterol (VENTOLIN) inhaler 8 Puff ED COURSE MDM: Coding Patient is a 35 y/o male presenting for evaluation of generalized malaise. Ddx includes but is not limited to: Covid, sepsis, pneumonia, UTI, gastroesophageal disease, hypoglycemia, dehydration/electrolyte abnormalities Reviewed: nursing note and vitals Testing: basic labs, COVID, EKG, CXR, abdominal CT, blood cultures, lactic acid, CK, coags, cortisollevel Pertinent prior visits reviewed include visit from 08/23/20 Pertinent results include abnormal LFTs, abdominal CT showing esophageal perforation, abnormal UA, Procedures: none Treatment in ED: decadron, D10 250mg, zofran, Zosyn, IV fluids, warmers Patient was hypoglycemic and hypothermic when came to ED. Otherwise, his BP, pulse and respiration/SpO2 were stable. Warmers were placed on him and dextrose were given. Dr. Chawla recommended also giving patient Decadron and sending cortisol level after discussing with him. After CT results showed esophageal perforation, immediate attempt at transfer to [facility] initiated but delay in transfer acceptance due to ED census and other critical patients requiring more emergent transfer. Patient remained stable during that time. However, at one point during the process of obtaining transfer acceptance for the patient, the patient said that he wanted to leave AMA. I discussed the very strong chance of as a result of not treating the esophageal rupture, and Dr. Chawla as well as Micki Medina,RN spoke with the patient. He eventually agreed to stay in the ED and be transferred for emergent treatment. I was able to get acceptance for transfer and patient was sent by [facility]. Prior to transfer, I gave patient a dose of Fentanyl for pain control. Additional MDM may be found in the ED course and discharge recommendations in disposition. Vital signs were rechecked before final disposition and determined to be expected for patient's clinical condition. Scoring Tools: No data recorded Diagnosis/Impression: ICD-10-CM ICD-9-CM 1. Hypoglycemia E16.2 251.2 2. Hypothermia, initial encounter T68.XXXA 991.6 3. COVID-19 U07.1 079.89 4. Elevated LFTs R79.89 790.6 Disposition/Condition: ED Disposition None Discharge Medications: Patient's Medications START taking these [...] medications on file Follow-up: Electronically signed by: DILAN Redmond 09/26/2020 3:17 PM INE CLOTHING REPLACER Associated attestation - Pramod Chawla DO - 09/30/2020 6:58 PM CSTPatient seen and evaluated alongside RYAN Baltazar. Patient hypoglycemic and hypothermic concern for adrenal insufficiency. Given dextrose as well as Decadron. CT demonstrated esophageal perforation had patient transferred to [place] for surgical evaluation via [facility]. Antibiotics started.documented in this encounter Miscellaneous Notes Care Plan - Vita Horne RN - 10/02/2020 3:13 PM MACHINE CLOTHING REPLACER Problem: Falls, Risk of Goal: Absence of falls Outcome: Progressing as expected Problem: Infection Risk Goal: Absence of infection Outcome: Progressing as expected Problem: Pain Goal: Control of pain at or below patient's documented comfort goal Outcome: Progressing as expected Goal: Reduction in pain sensation Outcome: Progressing as expected Problem: Nausea/Vomiting Goal: Absence of nausea/vomiting Outcome: Progressing as expected Problem: Discharge Planning Goal: Absence of venous thromboembolism Outcome: Progressing as expected Goal: Adequate for discharge Outcome: Progressing as expected Goal: Effective communication Outcome: Progressing as expected are Plan - Amanuel Dewey RN - 10/02/2020 4:24 AM MACHINE CLOTHING REPLACER Problem: Falls, Risk of Goal: Absence of falls 10/02/2020423 by Amanuel Dewey RN Outcome: Progressing as expected 10/02/2020422 by Amanuel Dewey RN Outcome: Progressing as expected Problem: Infection Risk Goal: Absence of infection 10/02/2020423 by Amanuel Dewey RN Outcome: Progressing as expected 10/02/2020422 by Amanuel Dewey RN Outcome: Progressing as expected Problem: Pain Goal: Control of pain at or below patient's documented comfort goal 10/02/2020423 by Amanuel Dewey RN Outcome: Progressing as expected 10/02/2020422 by Amanuel Dewey RN Outcome: Progressing as expected Goal: Reduction in pain sensation Outcome: Progressing as expected Problem: Nausea/Vomiting Goal: Absence of nausea/vomiting Outcome: Not progressing as expected INE CLOTHING REPLACER Care Plan - Sheila Espinoza RN - 10/01/2020 2:50 PM MACHINE CLOTHING REPLACER Problem: Falls, Risk of Goal: Absence of falls Outcome: Progressing as expected Problem: Infection Risk Goal: Absence of infection Outcome: Progressing as expected INE CLOTHING REPLACER Nursing Note - Kath Espinosa RN - 10/01/2020 3:12 AM CSTIV infiltrated. X2 IV attempts unsuccessful. X3 Blood draws unsuccessful are Plan - Justina Julio RN - 09/29/2020 6:38 PM MACHINE CLOTHING REPLACER Problem: Falls, Risk of Goal: Absence of falls Outcome: Progressing as expected Problem: Infection Risk Goal: Absence of infection Outcome: Progressing as expected Problem: Pain Goal: Reduction in pain sensation Outcome: Progressing as expected are Plan - Barry Marshall RN - 09/29/2020 1:43 AM MACHINE CLOTHING REPLACER Problem: Falls, Risk of Goal: Absence of falls 09/29/2020 0142 by Barry Marshall RN Outcome: Progressing as expected 09/29/2020 0141 by Barry Marshall RN Outcome: Progressing as expected Problem: Infection Risk Goal: Absence of infection Outcome: Progressing as expected Problem: Pain Goal: Control of pain at or below patient's documented comfort goal Outcome: Progressing as expected are Roxana - Barry Marshall RN - 09/29/2020 1:42 AM MACHINE CLOTHING REPLACER Problem: Falls, Risk of Goal: Absence of falls 09/29/2020 0142 by Barry Marshall RN Outcome: Progressing as expected 09/29/2020 0141 by Barry Marshall RN Outcome: Progressing as expected Problem: Infection Risk Goal: Absence of infection Outcome: Progressing as expected INE CLOTHING REPLACER Nursing Note - Brando Nagle RN - 09/28/2020 3:39 PM [id number] Patient arrived on the unit from ICU, awake and alert able to express self, orientated to the unit. Left arn with multiple IV swollen, report received from ICU nurse stated that it was due to BPcuff placed on the side. Will continue to monitor. are Plan - Jennifer Echevarria RN - 09/27/2020 7:18 PM MACHINE CLOTHING REPLACER Problem: Falls, Risk of Goal: Absence of falls Outcome: Progressing as expected ursing Note - Jose Thompson RN - 09/27/2020 5:45 PM CSTSummary: Arterial Line Placement Patient refused to be stuck again for A-Line placement nesthesia Note - Rolan Mckinney MD - 09/27/2020 4:29 PM CST4:29 Patient seen at bedside; plan to place ART line for more frequent ABGs/hemodynamic monitoring. Hyperkalemia (6.3) w/o EKG treated with CaGluconate+Dextrose+Insulin+Albuterol. Awaiting results of BMP. GI team requested COVID19 PCR testing prior to EGD. Transaminitis trending upward suspect this is due to shocked liver. Ice chips only per primary team, plan to discuss advancing diet/placing feeding tube. BP 120/73 HR 42 RR 15 Spo2 98% UOP adequate per nursing staff. Intake/Output Summary (Last 24 hours) at 09/27/2020 1632 Last data filed at 09/27/2020 1600 2:09 AM Ca 6.7->Repleted Ca+ w/ 2g of Calcium Gluconate MD EDWIN, PGY2 Anesthesiology INE CLOTHING REPLACER Associated attestation - Star Ashford MD - 09/28/2020 9:51 [address] CSTI agree with Dr. Mckinney's overnight assessment note and plan. Star Ashford MD 09/28/2020 9:51 TONEY Nurse Note - Joselin Rome RN - 09/26/2020 4:45 PM CSTReport to Octavio mack at [facility]. D Nurse Note - Hailey Brunson RN - 09/26/2020 4:26 PM CSTETA for PHI is 16 minutes. D Nurse Note - Mei Dunn PCT - 09/26/2020 4:04 PM CSTPHI Med 7 en route. ETA 30 min from lift off. D Nurse Note - Irene Torres RN - 09/26/2020 4:03 PM CSTCancelled [facility]. D Nurse Note - Irene Torres RN - 09/26/2020 3:49 PM CSTNotified [facility] for [facility]. States they will launch when a bed is assigned. INE CLOTHING REPLACER ED Nurse Note - Irene Torres RN - 09/26/2020 1:59 PM CSTBCSO has released patient from their custody and is leaving patient's bedside. D Nurse Note - Joselin Rome RN - 09/26/2020 11:05 AM CSTReceived patient on bear hugger. INE CLOTHING REPLACER documented in this encounter Plan of Treatment Date Type Specialty Care Team Description 11/14/2020 Office Visit Thoracic Surgery Delvis Garcia MD [address] [phone] Name Type Priority Associated Diagnoses Date/Ti me HEPATITIS C VIRUS GENOTYPE LAB ROBERTO 1 11/28/2019 12:22 AM MACHINE CLOTHING REPLACER ANTI-NUCLEAR LAB Routine 09/27/2020 12:2 3 AM ANTIBODY-PATHOLOGIST MACHINE CLOTHING REPLACER INTERPRETATION URINE DRUG (LCMSMS) - LAB Routine 2019 9:50 AM COMPREHENSIVE DRUG PANEL MACHINE CLOTHING REPLACER CMV BY PCR LAB Routine 10/02/2020 12:2 4 PM MACHINE CLOTHING REPLACER SMOOTH MUSCLE AB,IGG LAB Routine 020 12:24 PM W/REFLEX MACHINE CLOTHING REPLACER MITOCHONDRIAL M2 AB, IGG LAB Routine 07/2020 12:24 PM MACHINE CLOTHING REPLACER [id number] ABS LAB Routine 1 12/03/2019 12:24 PM MACHINE CLOTHING REPLACER Misc. Sendout- HSV by PCR LAB Routine 12:24 PM with Reflex to HSV 1/ HSV 2 MACHINE CLOTHING REPLACER subtype Name Type Priority Associated Diagnoses Order S chedule EKG-12 LEAD ROUTINE HEART STATION STAT Abdominal pain ONCE for 1 ONCE Occurrences starting 2019 until 0 Lactic Acid Whole Blood LAB STAT STAT for 1 Occurrences starting 2019 until 0 HEPATITIS C VIRUS LAB ROBERTO ONCE for 1 GENOTYPE Occurrences starting 2019 until 0, 1 completed POCT GLUCOSE(AGE LAB ROBERTO ONCE for 1 0-30DAYS) Occurrences starting 2019 until 0 POCT GLUCOSE(AGE LAB Routine Hypokalemia Ordered: >30DAYS) PROTHROMBIN TIME / INR LAB Routine EVERY 24 HOURS (START TIME ADJUSTABLE) for 10 Occurrences starting 2019 until 0, 4 completed PHOSPHORUS LAB Routine EVERY 24 HOURS (START TIME ADJUSTABLE) for 4 Days starting 09/30/2020 unti l 10/03/2020, 3 completed MAGNESIUM LAB Routine EVERY 24 HOURS (START TIME ADJUSTABLE) for 5 Days starting 09/30/2020 unti l 10/04/2020, 3 completed CBC WITH DIFF LAB Routine EVERY 24 HOURS (START TIME ADJUSTABLE) for 5 Occurrences starting 2019 until 0, 2 completed COMP. METABOLIC PANEL LAB Routine EVERY 24 HOURS (72819) (START TIME ADJUSTABLE) for 3 Occurrences starting 2019 until 0, 2 completed CREATININE, URINE LAB Routine ONCE for 1 RANDOM Occurrences starting 2019 until 0 ANTI-NUCLEAR LAB Routine ONCE for 1 ANTIBODY-PATHOLOGIST Occurre nces INTERPRETATION starting 05/2020 until 0 POCT GLUCOSE(AGE LAB Routine EVERY 6 ALFIE RS >30DAYS) (START TIME ADJUSTABLE) STA RT TIME ADJUSTABLE for 2 Days starting 09/30/2020 unti l 10/02/2020 URINE DRUG (LCMSMS) - LAB Routine ONCE f or 1 COMPREHENSIVE DRUG Occurrenc es PANEL starting 2019 until 0, 1 completed EBV-MONONUCLEOSIS LAB Add-on ONCE for 1 SCREEN Occurrences starting 2019 until 0 CMV BY PCR LAB Routine ONCE for 1 Occurrences starting 2019 until 0 SMOOTH MUSCLE AB,IGG LAB Routine ONCE fo r 1 W/REFLEX Occurrences starting 2019 until 0 MITOCHONDRIAL M2 AB, LAB Routine ONCE fo r 1 IGG Occurrences starting 2019 until 0 [id number] LAB Routine ONCE for 1 ABS Occurrences starting 2019 until 0 Misc. Sendout- HSV by LAB Routine ONCE f or 1 PCR with Reflex to HSV Occur rences 1/ HSV 2 subtype starting until 0 Health Maintenance Due Date Last Done Comments VARICELLA VACCINES (1 of 2 - 2-dose childhood series) 1985 Depression Screening 1996 DTaP,Tdap,and Td Vaccines (1 - Tdap) 2003 PNEUMOCOCCAL 0-64 YEARS COMBINED SERIES (2 of 3 - 08/30/2021 08/30/2020 PCV13) INFLUENZA VACCINE Completed 08/30/2020 documented as of this encounter Procedures Procedure Name Priority Date/Time Associated Comments Diagnosis PROTHROMBIN TIME / INR Routine 10/02/2020 12:24 R esults for this PM MACHINE CLOTHING REPLACER procedure are i n the results section. CBC WITH DIFF Routine 10/02/2020 12:24 Results fo r this PM MACHINE CLOTHING REPLACER procedure are i n the results section. COMP. METABOLIC PANEL Routine 10/02/2020 6:12 Re sults for this ([id number]) AM MACHINE CLOTHING REPLACER procedure are i n the results section. FERRITIN SERUM Add-on 10/02/2020 6:12 Results f or this AM MACHINE CLOTHING REPLACER procedure are i n the results section. MAGNESIUM Routine 10/02/2020 6:12 Results for this AM MACHINE CLOTHING REPLACER procedure are i n the results section. PHOSPHORUS Routine 10/02/2020 6:12 Results for this AM MACHINE CLOTHING REPLACER procedure are i n the results section. POCT GLUCOSE Routine 10/02/2020 12:17 Results for this (AUTOMATED) AM MACHINE CLOTHING REPLACER procedure are i n the results section. POCT GLUCOSE Routine 10/01/2020 5:34 Results for this (AUTOMATED) PM MACHINE CLOTHING REPLACER procedure are i n the results section. POCT GLUCOSE Routine 10/01/2020 3:32 Results for this (AUTOMATED) PM MACHINE CLOTHING REPLACER procedure are i n the results section. EXTRA SST HOLD FOR ARUP Routine 10/01/2020 1:16 PM MACHINE CLOTHING REPLACER HIT - AB Routine 10/01/2020 1:16 Results for this PM MACHINE CLOTHING REPLACER procedure are i n the results section. HIT - AB Routine 10/01/2020 1:16 Results for this PM MACHINE CLOTHING REPLACER procedure are i n the results section. IMMUNOGLOBULIN G Add-on 10/01/2020 1:16 Results for this PM MACHINE CLOTHING REPLACER procedure are i n the results section. ALPHA 1 ANTITRYPSIN Add-on 10/01/2020 1:16 Resu lts for this PM MACHINE CLOTHING REPLACER procedure are i n the results section. CERULOPLASMIN Add-on 10/01/2020 1:16 Results fo r this PM MACHINE CLOTHING REPLACER procedure are i n the results section. POCT GLUCOSE Routine 10/01/2020 6:20 Results for this (AUTOMATED) AM MACHINE CLOTHING REPLACER procedure are i n the results section. PROTHROMBIN TIME / INR Routine 10/01/2020 3:40 R esults for this AM MACHINE CLOTHING REPLACER procedure are i n the results section. CBC WITH DIFF Routine 10/01/2020 3:40 Results fo r this AM MACHINE CLOTHING REPLACER procedure are i n the results section. COMP. METABOLIC PANEL Routine 10/01/2020 3:40 Re sults for this ([id number]) AM MACHINE CLOTHING REPLACER procedure are i n the results section. BILI UNCONJUGATED/BILI Add-on 10/01/2020 3:40 R esults for this CONJUG AM MACHINE CLOTHING REPLACER procedure are i n the results section. MAGNESIUM Routine 10/01/2020 3:40 Results for this AM MACHINE CLOTHING REPLACER procedure are i n the results section. CREATINE KINASE Add-on 10/01/2020 3:40 Results for this AM MACHINE CLOTHING REPLACER procedure are i n the results section. PHOSPHORUS Routine 10/01/2020 3:40 Results for this AM MACHINE CLOTHING REPLACER procedure are i n the results section. POCT GLUCOSE Routine 10/01/2020 3:06 Results for this (AUTOMATED) AM MACHINE CLOTHING REPLACER procedure are i n the results section. POCT GLUCOSE Routine 09/30/2020 5:08 Results for this (AUTOMATED) PM MACHINE CLOTHING REPLACER procedure are i n the results section. POCT GLUCOSE Routine 09/30/2020 11:53 Results for this (AUTOMATED) AM MACHINE CLOTHING REPLACER procedure are i n the results section. POCT GLUCOSE Routine 09/30/2020 6:08 Results for this (AUTOMATED) AM MACHINE CLOTHING REPLACER procedure are i n the results section. PROTHROMBIN TIME / INR Routine 09/30/2020 2:16 R esults for this AM MACHINE CLOTHING REPLACER procedure are i n the results section. CBC WITH DIFF Routine 09/30/2020 2:16 Results fo r this AM MACHINE CLOTHING REPLACER procedure are i n the results section. COMP. METABOLIC PANEL Routine 09/30/2020 2:16 Re sults for this ([id number]) AM MACHINE CLOTHING REPLACER procedure are i n the results section. MAGNESIUM Routine 09/30/2020 2:16 Results for this AM MACHINE CLOTHING REPLACER procedure are i n the results section. PHOSPHORUS Routine 09/30/2020 2:16 Results for this AM MACHINE CLOTHING REPLACER procedure are i n the results section. POCT GLUCOSE Routine 09/29/2020 8:15 Results for this (AUTOMATED) PM MACHINE CLOTHING REPLACER procedure are i n the results section. POCT GLUCOSE Routine 09/29/2020 5:46 Results for this (AUTOMATED) PM MACHINE CLOTHING REPLACER procedure are i n the results section. POCT GLUCOSE Routine 09/29/2020 11:44 Results for this (AUTOMATED) AM MACHINE CLOTHING REPLACER procedure are i n the results section. POCT GLUCOSE Routine 09/29/2020 9:20 Results for this (AUTOMATED) AM MACHINE CLOTHING REPLACER procedure are i n the results section. FREE T3 Add-on 09/29/2020 5:34 Results for this AM MACHINE CLOTHING REPLACER procedure are i n the results section. HBV BY REAL-TIME PCR Routine 09/29/2020 5:34 Res ults for this AM MACHINE CLOTHING REPLACER procedure are i n the results section. HCV BY PCR Routine 09/29/2020 5:34 Results for this AM MACHINE CLOTHING REPLACER procedure are i n the results section. CBC WITH DIFF Routine 09/29/2020 5:34 Results fo r this AM MACHINE CLOTHING REPLACER procedure are i n the results section. COMP. METABOLIC PANEL Routine 09/29/2020 5:34 Re sults for this ([id number]) AM MACHINE CLOTHING REPLACER procedure are i n the results section. THYROID STIMULATING Add-on 09/29/2020 5:34 Resu lts for this HORMONE AM MACHINE CLOTHING REPLACER procedure are i n the results section. PHOSPHORUS Add-on 09/29/2020 5:34 Results for this AM MACHINE CLOTHING REPLACER procedure are i n the results section. PREALBUMIN, SERUM Add-on 09/29/2020 5:34 Result s for this AM MACHINE CLOTHING REPLACER procedure are i n the results section. PROTHROMBIN TIME / INR Routine 09/29/2020 5:33 R esults for this AM MACHINE CLOTHING REPLACER procedure are i n the results section. POCT GLUCOSE Routine 09/28/2020 9:04 Results for this (AUTOMATED) PM MACHINE CLOTHING REPLACER procedure are i n the results section. POCT GLUCOSE Routine 09/28/2020 6:32 Results for this (AUTOMATED) PM MACHINE CLOTHING REPLACER procedure are i n the results section. POCT GLUCOSE Routine 09/28/2020 5:30 Results for this (AUTOMATED) PM MACHINE CLOTHING REPLACER procedure are i n the results section. POCT GLUCOSE Routine 09/28/2020 1:25 Results for this (AUTOMATED) PM MACHINE CLOTHING REPLACER procedure are i n the results section. HEPATITIS B CORE Add-on 09/28/2020 1:22 Results for this ANTIBODY IGM PM MACHINE CLOTHING REPLACER procedure are i n the results section. CBC WITH DIFF ROBERTO 09/28/2020 1:22 Results fo r this PM MACHINE CLOTHING REPLACER procedure are i n the results section. BILI UNCONJUGATED/BILI ROBERTO 09/28/2020 1:22 R esults for this CONJUG PM MACHINE CLOTHING REPLACER procedure are i n the results section. POTASSIUM SERUM ROBERTO 09/28/2020 1:22 Results for this PM MACHINE CLOTHING REPLACER procedure are i n the results section. POCT GLUCOSE Routine 09/28/2020 10:03 Results for this (AUTOMATED) AM MACHINE CLOTHING REPLACER procedure are i n the results section. CD4/CD8 SUBSET ASSAY ROBERTO 09/28/2020 10:01 Res ults for this AM MACHINE CLOTHING REPLACER procedure are i n the results section. HEPATITIS A VIRUS Add-on 09/28/2020 10:00 Result s for this ANTIBODY IGM AM MACHINE CLOTHING REPLACER procedure are i n the results section. COMP. METABOLIC PANEL ROBERTO 09/28/2020 10:00 Re sults for this ([id number]) AM MACHINE CLOTHING REPLACER procedure are i n the results section. MAGNESIUM Add-on 09/28/2020 10:00 Results for this AM MACHINE CLOTHING REPLACER procedure are i n the results section. PHOSPHORUS Add-on 09/28/2020 10:00 Results for this AM MACHINE CLOTHING REPLACER procedure are i n the results section. POCT GLUCOSE Routine 09/28/2020 5:11 Results for this (AUTOMATED) AM MACHINE CLOTHING REPLACER procedure are i n the results section. BASIC METABOLIC PANEL ROBERTO 09/28/2020 5:11 Re sults for this (NA, K, CL, CO2, AM MACHINE CLOTHING REPLACER procedure a re in GLUCOSE, BUN, the results CREATININE, CA) section. GLYCOSYLATED HEMOGLOBIN ROBERTO 09/28/2020 2:31 Results for this (A1C) AM MACHINE CLOTHING REPLACER procedure are i n the results section. CBC WITH DIFF ROBERTO 09/28/2020 2:31 Results fo r this AM MACHINE CLOTHING REPLACER procedure are i n the results section. COMP. METABOLIC PANEL ROBERTO 09/28/2020 2:31 Re sults for this ([id number]) AM MACHINE CLOTHING REPLACER procedure are i n the results section. POCT GLUCOSE Routine 09/28/2020 2:30 Results for this (AUTOMATED) AM MACHINE CLOTHING REPLACER procedure are i n the results section. PROTHROMBIN TIME / INR ROBERTO 09/28/2020 1:35 R esults for this AM MACHINE CLOTHING REPLACER procedure are i n the results section. POCT GLUCOSE Routine 09/28/2020 1:33 Results for this (AUTOMATED) AM MACHINE CLOTHING REPLACER procedure are i n the results section. POCT GLUCOSE Routine 09/27/2020 11:22 Results for this (AUTOMATED) PM MACHINE CLOTHING REPLACER procedure are i n the results section. MRSA / MSSA SCREEN BY [facility] 09/27/2020 9:57 Re sults for this PCR, NARES PM MACHINE CLOTHING REPLACER procedure are i n the results section. BASIC METABOLIC PANEL [facility] 09/27/2020 9:57 Re sults for this (NA, K, CL, CO2, PM MACHINE CLOTHING REPLACER procedure a re in GLUCOSE, BUN, the results CREATININE, CA) section. ABG+COOX+NA+K+GLU+CA2+ ROBERTO 09/27/2020 7:39 R esults for this PM MACHINE CLOTHING REPLACER procedure are i n the results section. COMP. METABOLIC PANEL ROBERTO 09/27/2020 7:39 Re sults for this ([id number]) PM MACHINE CLOTHING REPLACER procedure are i n the results section. POCT GLUCOSE Routine 09/27/2020 7:36 Results for this (AUTOMATED) PM MACHINE CLOTHING REPLACER procedure are i n the results section. LAB ONLY COVID Routine 09/27/2020 3:48 Results f or this INTERPRETATION PM MACHINE CLOTHING REPLACER procedure are in the results section. COVID-19 (MOLECULAR STAT 09/27/2020 3:48 Resu lts for this TESTING PM MACHINE CLOTHING REPLACER procedure are in NUCLEIC ACID the results AMPLIFICATION) section. COMP. METABOLIC PANEL [facility] 09/27/2020 3:45 Re sults for this ([id number]) PM MACHINE CLOTHING REPLACER procedure are i n the results section. BILI UNCONJUGATED/BILI ROBERTO 09/27/2020 3:45 R esults for this CONJUG PM MACHINE CLOTHING REPLACER procedure are i n the results section. LAB ONLY COVID Routine 09/27/2020 2:15 Results f or this INTERPRETATION PM MACHINE CLOTHING REPLACER procedure are in the results section. SARS-COV-2 IGG STAT 09/27/2020 2:15 Results f or this PM MACHINE CLOTHING REPLACER procedure are i n the results section. CBC WITH DIFF ROBERTO 09/27/2020 2:15 Results fo r this PM MACHINE CLOTHING REPLACER procedure are i n the results section. COMP. METABOLIC PANEL STAT 09/27/2020 2:15 Re sults for this ([id number]) PM MACHINE CLOTHING REPLACER procedure are i n the results section. CREATINE KINASE ROBERTO 09/27/2020 2:15 Results for this PM MACHINE CLOTHING REPLACER procedure are i n the results section. POCT GLUCOSE Routine 09/27/2020 1:21 Results for this (AUTOMATED) PM MACHINE CLOTHING REPLACER procedure are i n the results section. BASIC METABOLIC PANEL ROBERTO 09/27/2020 10:02 Re sults for this (NA, K, CL, CO2, AM MACHINE CLOTHING REPLACER procedure a re in GLUCOSE, BUN, the results CREATININE, CA) section. POCT GLUCOSE Routine 09/27/2020 6:23 Results for this (AUTOMATED) AM MACHINE CLOTHING REPLACER procedure are i n the results section. ACTIVATED PARTIAL ROBERTO 09/27/2020 6:13 Result s for this THRMPLAS LAURA AM MACHINE CLOTHING REPLACER procedure are i n the results section. PROTHROMBIN TIME / INR ROBERTO 09/27/2020 6:13 R esults for this AM MACHINE CLOTHING REPLACER procedure are i n the results section. CBC WITH DIFF ROBERTO 09/27/2020 6:13 Results fo r this AM MACHINE CLOTHING REPLACER procedure are i n the results section. PROTHROMBIN TIME / INR ROBERTO 09/27/2020 2:38 R esults for this AM MACHINE CLOTHING REPLACER procedure are i n the results section. HEPATIC FUNCTION PANEL ROBERTO 09/27/2020 1:59 R esults for this ([id number]) (ALB,T.PRO,BILI AM MACHINE CLOTHING REPLACER proc edure are in T,BU/BC,ALT,AST,ALK the resu lts PHOS) section. LIPASE ROBERTO 09/27/2020 1:59 Results for this AM MACHINE CLOTHING REPLACER procedure are i n the results section. EXTRA TUBE LAV ROBERTO 09/27/2020 1:58 AM MACHINE CLOTHING REPLACER LACTIC ACID WHOLE BLOOD STAT 09/27/2020 1:58 Results for this AM MACHINE CLOTHING REPLACER procedure are i n the results section. CBC WITH DIFF STAT 09/27/2020 1:58 Results fo r this AM MACHINE CLOTHING REPLACER procedure are i n the results section. BASIC METABOLIC PANEL STAT 09/27/2020 1:58 Re sults for this (NA, K, CL, CO2, AM MACHINE CLOTHING REPLACER procedure a re in GLUCOSE, BUN, the results CREATININE, CA) section. HEPATIC FUNCTION PANEL ROBERTO 09/27/2020 1:58 R esults for this ([id number]) (ALB,T.PRO,BILI AM MACHINE CLOTHING REPLACER proc edure are in T,BU/BC,ALT,AST,ALK the resu lts PHOS) section. POCT GLUCOSE Routine 09/27/2020 1:57 Results for this (AUTOMATED) AM MACHINE CLOTHING REPLACER procedure are i n the results section. URINE DRUG (LCMSMS) - ROBERTO 09/27/2020 12:53 Re sults for this SYNTHETIC OPIATES PANEL AM MACHINE CLOTHING REPLACER proc edure are in the results section. URINE DRUG (LCMSMS) - ROBERTO 09/27/2020 12:53 Re sults for this OPIATES PANEL AM MACHINE CLOTHING REPLACER procedure are in the results section. GALV/CLC ONLY - URINE [facility] 09/27/2020 12:53 Re sults for this DRUG (IMMUNOASSAY) - AM MACHINE CLOTHING REPLACER procedu re are in COMPREHENSIVE DRUG the resul ts SCREEN section. PROTHROMBIN TIME / INR ROBERTO 09/27/2020 12:51 R esults for this AM MACHINE CLOTHING REPLACER procedure are i n the results section. HEPATIC FUNCTION PANEL [facility] 09/27/2020 12:51 R esults for this ([id number]) (ALB,T.PRO,BILI AM MACHINE CLOTHING REPLACER proc edure are in T,BU/BC,ALT,AST,ALK the resu lts PHOS) section. LIPASE ROBERTO 09/27/2020 12:51 Results for this AM MACHINE CLOTHING REPLACER procedure are i n the results section. HAV ANTIBODY (IGG AND ROBERTO 09/27/2020 12:24 Re sults for this IGM) AM MACHINE CLOTHING REPLACER procedure are i n the results section. HEPATITIS B SURFACE ROBERTO 09/27/2020 12:24 Resu lts for this ANTIGEN AM MACHINE CLOTHING REPLACER procedure are i n the results section. CREATININE ROBERTO 09/27/2020 12:24 Results for this AM MACHINE CLOTHING REPLACER procedure are i n the results section. HBC ANTIBODY (IGM & Add-on 09/27/2020 12:23 Resu lts for this IGG) AM MACHINE CLOTHING REPLACER procedure are i n the results section. HEPATITIS B SURFACE ROBERTO 09/27/2020 12:23 Resu lts for this ANTIBODY AM MACHINE CLOTHING REPLACER procedure are i n the results section. ANTI-NUCLEAR ANTIBODY Add-on 09/27/2020 12:23 Re sults for this SCREEN AM MACHINE CLOTHING REPLACER procedure are i n the results section. FREE T4 Add-on 09/27/2020 12:23 Results for this AM MACHINE CLOTHING REPLACER procedure are i n the results section. IMMUNOGLOBULIN G Add-on 09/27/2020 12:23 Results for this AM MACHINE CLOTHING REPLACER procedure are i n the results section. FL BARIUM SWALLOW STAT 09/26/2020 9:24 Abdominal pain Resu lts for this ESOPHAGUS PM MACHINE CLOTHING REPLACER procedure are i n the results section. POCT GLUCOSE Routine 09/26/2020 5:51 Results for this (AUTOMATED) PM MACHINE CLOTHING REPLACER procedure are i n the results section. US ABDOMEN LIMITED STAT 09/26/2020 2:47 Elevated LFTs Resu lts for this PM MACHINE CLOTHING REPLACER procedure are i n the results section. CT ABDOMEN PELVIS WO STAT 09/26/2020 1:43 Hypoglycem ia Results for this CONTRAST PM MACHINE CLOTHING REPLACER Hypothermia, procedure are i n initial encounte r the results COVID-19 section. Elevated LFTs HIV 1/2 AG-AB WITH Add-on 09/26/2020 1:01 Resul ts for this REFLEX PM MACHINE CLOTHING REPLACER procedure are i n the results section. TROPONIN I STAT 09/26/2020 1:01 Hypoglycemia Results for this PM MACHINE CLOTHING REPLACER Hypothermia, procedure are i n initial encounte r the results COVID-19 section. POCT GLUCOSE Routine 09/26/2020 12:06 Results for this (AUTOMATED) PM MACHINE CLOTHING REPLACER procedure are i n the results section. URINALYSIS STAT 09/26/2020 11:25 Hypoglycemia Results for this AM MACHINE CLOTHING REPLACER Hypothermia, procedure are i n initial encounte r the results COVID-19 section. XR CHEST 1 VW STAT 09/26/2020 11:20 Hypoglycemia Results for this AM MACHINE CLOTHING REPLACER Hypothermia, procedure are i n initial encounte r the results COVID-19 section. LACTIC ACID WHOLE BLOOD STAT 09/26/2020 10:54 Hypogly cemia Results for this AM MACHINE CLOTHING REPLACER Hypothermia, procedure are i n initial encounte r the results COVID-19 section. HB ECG ROUTINE & RHYTHM STAT 09/26/2020 10:52 Hypogly cemia STRIP AM MACHINE CLOTHING REPLACER Hypothermia, initial encounte r COVID-19 LAB ONLY COVID Routine 09/26/2020 10:52 Hypoglycemia Results for this INTERPRETATION AM MACHINE CLOTHING REPLACER Hypothermia, procedure are in initial encounte r the results COVID-19 section. COVID-19 (ID NOW RAPID STAT 09/26/2020 10:52 Hypoglyc emia Results for this TESTING) AM MACHINE CLOTHING REPLACER Hypothermia, procedure are i n initial encounte r the results COVID-19 section. ACTIVATED PARTIAL STAT 09/26/2020 10:51 Hypoglycemia Results for this THRMPLAS LAURA AM MACHINE CLOTHING REPLACER Hypothermia, procedure are i n initial encounte r the results COVID-19 section. PROTHROMBIN TIME / INR STAT 09/26/2020 10:51 Hypoglyc emia Results for this AM MACHINE CLOTHING REPLACER Hypothermia, procedure are i n initial encounte r the results COVID-19 section. CBC WITH DIFF STAT 09/26/2020 10:49 Hypoglycemia Results for this AM MACHINE CLOTHING REPLACER Hypothermia, procedure are i n initial encounte r the results COVID-19 section. COMP. METABOLIC PANEL STAT 09/26/2020 10:49 Hypoglyce fox Results for this ([id number]) AM MACHINE CLOTHING REPLACER Hypothermia, procedure are i n initial encounte r the results COVID-19 section. CORTISOL AM STAT 09/26/2020 10:49 Hypoglycemia Results for this AM MACHINE CLOTHING REPLACER Hypothermia, procedure are i n initial encounte r the results COVID-19 section. CREATINE KINASE STAT 09/26/2020 10:49 Hypoglycemia Results for this AM MACHINE CLOTHING REPLACER Hypothermia, procedure are i n initial encounte r the results COVID-19 section. BLOOD CULTURE SCREEN STAT 09/26/2020 10:49 Hypoglycem ia Results for this AM MACHINE CLOTHING REPLACER Hypothermia, procedure are i n initial encounte r the results COVID-19 section. POCT GLUCOSE Routine 09/26/2020 10:28 Results for this (AUTOMATED) AM MACHINE CLOTHING REPLACER procedure are i n the results section. documented in this encounter Results CBC WITH DIFF (10/02/2020 12:24 PM MACHINE CLOTHING REPLACER) WBC 9.77 4.20 - 10.70 [facility] 10*3/L SERVICES RBC 4.72 4.26 - 5.52 [facility] 10*6/L SERVICES HGB 13.1 12.2 - 16.4 [facility] g/dL SERVICES HCT 39.8 38.4 - 49.3 % [facility] SERVICES MCV 84.3 81.7 - 95.6 [facility] fL SERVICES MCH 27.8 26.1 - 32.7 [facility] pg SERVICES MCHC 32.9 31.2 - 35.0 [facility] g/dL SERVICES RDW-SD 43.3 38.5 - 51.6 [facility] fL SERVICES RDW-CV 14.2 12.1 - 15.4 % [facility] SERVICES PLT 51 (L) 150 - 328 [facility] 10*3/L SERVICES MPV 13.6 (H) 9.8 - 13.0 fL [facility] SERVICES IPF % 10.4Comment: 1.2 - 10.7 % [facility] Platelet count SERVICES measured by fluorescence method. NRBC/100 WBC 0.0 0.0 - 10.0 [facility] /100 WBCs SERVICES NRBC x10^3 <0.01 10*3/L [facility] GRAN MAT (NEUT) % 73.8 % [facility] IMM GRAN % 0.30 % [facility] LYMPH % 22.9 % [facility] MONO % 2.8 % [facility] EOS % 0.1 % [facility] BASO % 0.1 % [facility] GRAN MAT 7.21 (H) 1.99 - 6.95 [facility] x10^3(ANC) 10*3/uL SERVICES IMM GRAN x10^3 0.03 0.00 - 0.06 [facility] 10*3/uL SERVICES LYMPH x10^3 2.24 1.09 - 3.23 [facility] 10*3/uL SERVICES MONO x10^3 0.27 (L) 0.36 - 1.02 [facility] 10*3/uL SERVICES EOS x10^3 <0.03 (L) 0.06 - 0.53 [facility] 10*3/uL SERVICES BASO x10^3 <0.03 0.01 - 0.09 [facility] 10*3/uL SERVICES IVAN CELLS 2+ (A) (none) [facility] SERVICES Specimen Blood - VENOUS Performing Organization Address City/State/Zipcode Phone Number [facility] CLIA: [id number] [place], [place] [address] [place] [address] PROTHROMBIN TIME / INR (10/02/2020 12:24 PM MACHINE CLOTHING REPLACER) PROTIME PATIENT 12.0 10.1 - 12.6 [facility] Seconds SERVICES INR 1.1Comment: Normal [facility] INR <1.1; Warfarin SERVICES Therapeutic range 2.0 to 3.0 or 2.5 to 3.5, depending upon the indications. Specimen Blood - VENOUS Performing Organization Address City/State/Zipcode Phone Number [facility] CLIA: [id number] [place] [address] [place] [address] FERRITIN SERUM (10/02/2020 6:12 AM MACHINE CLOTHING REPLACER) Pathologist Sig nature FERRITIN 618.0 (H) 18.0 - 464.0 ng/mL [facility] SERVIC ES Specimen Blood - ARM, LEFT Narrative Performed At [facility] has been reported to cause a negative bias, int erpret [facility] results relative to patient's use of biotin. Performing Organization Address City/State/Zipcode Phone Number [facility] CLIA: [id number] [place] [address] [place] [address] COMP. METABOLIC PANEL ([id number]) (10/02/2020 6:12 AM MACHINE CLOTHING REPLACER) NA 136 135 - 145 [facility] mmol/L SERVICES K 3.6 3.5 - 5.0 [facility] mmol/L SERVICES CL 101 98 - 108 mmol/L [facility] SERVICES CO2 TOTAL 28 23 - 31 mmol/L [facility] SERVICES AGAP 7 2 - 16 [facility] SERVICES BUN 9 7 - 23 mg/dL [facility] SERVICES GLUCOSE 69 (L) 70 - 110 mg/dL [facility] SERVICES CREATININE 0.47 (L) 0.60 - 1.25 [facility] mg/dL SERVICES TOTAL BILI 1.2 (H) 0.1 - 1.1 mg/dL [facility] SERVICES CALCIUM 7.3 (L) 8.6 - 10.6 [facility] mg/dL SERVICES T PROTEIN 6.8 6.3 - 8.2 g/dL [facility] SERVICES ALBUMIN 3.2 (L) 3.5 - 5.0 g/dL [facility] SERVICES ALK PHOS 950 (H) 34 - 122 U/L [facility] SERVICES ALTv 550 (H) 5 - 50 U/L [facility] SERVICES AST(SGOT) 432 (H) 13 - 40 U/L [facility] SERVICES eGFR Calculation 202.1 mL/min/1.73m2 [facility] (Non- SERVICES Croatian) eGFR Calculation 244.9 mL/min/1.73m2 [facility] () SERVICES Specimen Blood - ARM, LEFT Narrative Performed At Association of Glomerular Filtration Rate (GFR) and St aging [facility] SERVICES of Kidney Disease* + + [...] in imaging tests) . Performing Organization Address [facility] Phone Number [facility] CLIA: [id number] [place], [place] [address] [address] [place] [address] MAGNESIUM (10/02/2020 6:12 AM MACHINE CLOTHING REPLACER) Pathologist Sig nature MAGNESIUM 1.8 1.7 - 2.4 mg/dL [facility] SERVICES Specimen Blood - ARM, LEFT Performing Organization Address [facility] Phone Number [facility] CLIA: [id number] [place] [address] [phone] [address] [facility] PHOSPHORUS (10/02/2020 6:12 AM MACHINE CLOTHING REPLACER) Pathologist Sig nature PHOSPHORUS 1.4 (L) 2.5 - 5.0 mg/dL [facility] SERVICES Specimen Blood - ARM, LEFT Performing Organization Address [facility] Phone Number [facility] CLIA: [id number] [place] [address] [phone] 301 [facility] POCT GLUCOSE (AUTOMATED) (10/02/2020 12:17 AM MACHINE CLOTHING REPLACER) Pathologist Sig nature POCT GLU 79 70 - 110 mg/dL [facility] Specimen Blood Performing Organization Address [facility] Phone Number [facility] CLIA: [id number] [place], [place] [address] 301 [facility] POCT GLUCOSE (AUTOMATED) (10/01/2020 5:34 PM MACHINE CLOTHING REPLACER) Pathologist Sig nature POCT GLU 100 70 - 110 mg/dL [facility] Specimen Blood Performing Organization Address City/[facility] Phone Number [facility] CLIA: [id number] [place] [address] [phone] 301 [facility] POCT GLUCOSE (AUTOMATED) (10/01/2020 3:32 PM MACHINE CLOTHING REPLACER) Pathologist Sig nature POCT GLU 75 70 - 110 mg/dL [facility] Specimen Blood Performing Organization Address City/[facility] Phone Number [facility] CLIA: [id number] [place] [address] [phone] 301 [facility] IMMUNOGLOBULIN G (10/01/2020 1:16 PM MACHINE CLOTHING REPLACER) Pathologist Sig nature IgG 1,510 636-1,600 mg/dL [facility] Specimen Blood - ARM, LEFT Performing Organization Address [facility] Phone Number [facility] CLIA: [id number] [place] [address] [place] [address] CERULOPLASMIN (10/01/2020 1:16 PM MACHINE CLOTHING REPLACER) Pathologist Sig nature CERULO 28 25 - 63 mg/dL [facility] Specimen Blood - ARM, LEFT Performing Organization Address [facility] Phone Number [facility] CLIA: [id number] [place] [address] [place] [address] ALPHA 1 ANTITRYPSIN (10/01/2020 1:16 PM MACHINE CLOTHING REPLACER) Pathologist Sig nature Anti-Trypsin 121 83 - 199 mg/dL [facility] Specimen Blood - ARM, LEFT Performing Organization Address [facility] Phone Number [facility] CLIA: [id number] [place] [address] [place] [address] EXTRA SST HOLD FOR ARUP (10/01/2020 1:16 PM MACHINE CLOTHING REPLACER) Specimen Blood - ARM, LEFT Performing Organization Address City/[facility] Phone Number [facility] CLIA: [id number] [place] [address] [place] [address] HIT - AB (10/01/2020 1:16 PM MACHINE CLOTHING REPLACER) Pathologist Sig [facility] HIT-Ab Negative Negative [facility] Specimen Blood - ARM, LEFT Narrative Performed At Although a positive result obtained using this assay m [facility] SERVICES indicate the presence of heparin-associated antibodies , a positive result DOES NOT CONFIRM the diagnosis of HIT. Some patiens may have naturally occurring antibodies to PF4 . The positive or negative result should be used with other information, including the clinical context, in formin g a diagnosis such as the 4T score and the 2013 [place] [employer]emat[employer] guidelines. Performing Organization Address [facility] Phone Number [facility] CLIA: [id number] [place] [address] [place] [address] POCT GLUCOSE (AUTOMATED) (10/01/2020 6:20 AM MACHINE CLOTHING REPLACER) Pathologist [facility] POCT GLU 119 (H) 70 - 110 mg/dL [facility] Specimen Blood Performing Organization Address [facility] Phone Number [facility] CLIA: [id number] [place] [address] [place] [address] CREATINE KINASE (10/01/2020 3:40 AM MACHINE CLOTHING REPLACER) Pathologist [facility] CK 600 (H) 33 - 194 U/L [facility] Specimen Blood - ARM, LEFT Performing Organization Address [facility] Number [facility] CLIA: [id number] [place] [address] [place] [address] BILI UNCONJUGATED/BILI CONJUG (10/01/2020 3:40 AM MACHINE CLOTHING REPLACER) Pathologist Sig [facility] BILI CONJ 0.0 0.0 - 0.3 mg/dL [facility] BILI UNCON 1.2 (H) 0.1 - 1.1 mg/dL [facility] Specimen Blood - ARM, LEFT Performing Organization Address [facility] Phone Number [facility] CLIA: [id number] [place] [address] [place] [address] COMP. METABOLIC PANEL ([id number]) (10/01/2020 3:40 AM MACHINE CLOTHING REPLACER) NA 136 135 - 145 [facility] mmol/L SERVICES K 3.6Comment: 3.5 - 5.0 [facility] Slight hemolysis mmol/L SERVICES CL 99 98 - 108 [facility] mmol/L SERVICES CO2 TOTAL 31 23 - 31 [facility] mmol/L SERVICES AGAP 6 2 - 16 [facility] SERVICES BUN 12Comment: Slight 7 - 23 mg/dL [facility] hemolysis SERVICES GLUCOSE 61 (L) 70 - 110 [facility] mg/dL SERVICES CREATININE 0.61 0.60 - 1.25 [facility] mg/dL SERVICES TOTAL BILI 1.5 (H) 0.1 - 1.1 [facility] mg/dL SERVICES CALCIUM 7.5 (L) 8.6 - 10.6 [facility] mg/dL SERVICES T PROTEIN 7.1 6.3 - 8.2 [facility] g/dL SERVICES ALBUMIN 3.3 (L) 3.5 - 5.0 [facility] g/dL SERVICES ALK PHOS 1,093 (H)Comment: 34 - 122 U/L [facility] Slight hemolysis SERVICES ALTv 722 (H) 5 - 50 U/L [facility] LABORATORY SERVICES AST(SGOT) 975 (H) 13 - 40 U/L [facility] eGFR Calculation 149.6 mL/min/1.73m2 [facility] (Non- SERVICES Croatian) eGFR Calculation 181.3 mL/min/1.73m2 [facility] () SERVICES Specimen Blood - ARM, LEFT Narrative Performed At Association of Glomerular Filtration Rate (GFR) and St aging [facility] of Kidney Disease* + + [...] . Performing Organization Address City/State/Zipcode Phone Number [facility] CLIA: [id number] [place] [address] [place] [address] CBC WITH DIFF (10/01/2020 3:40 AM MACHINE CLOTHING REPLACER) WBC 7.93 4.20 - 10.70 [facility] 10*3/L SERVICES RBC 4.50 4.26 - 5.52 [facility] 10*6/L SERVICES HGB 12.6 12.2 - 16.4 [facility] g/dL SERVICES HCT 38.3 (L) 38.4 - 49.3 % [facility] MCV 85.1 81.7 - 95.6 [facility] fL SERVICES MCH 28.0 26.1 - 32.7 [facility] pg SERVICES MCHC 32.9 31.2 - 35.0 [facility] g/dL SERVICES RDW-SD 43.6 38.5 - 51.6 [facility] fL SERVICES RDW-CV 14.2 12.1 - 15.4 % [facility] PLT 72 (L) 150 - 328 [facility] 10*3/L SERVICES MPV 12.7 9.8 - 13.0 fL [facility] IPF % 6.4Comment: Platelet 1.2 - 10.7 % [facility] count measured by SERVICES fluorescence method. NRBC/100 WBC 0.0 0.0 - 10.0 [facility] /100 WBCs SERVICES NRBC x10^3 <0.01 10*3/L [facility] GRAN MAT (NEUT) % 70.9 % [facility] IMM GRAN % 0.40 % [facility] LYMPH % 25.1 % [facility] MONO % 3.4 % [facility] EOS % 0.1 % [facility] BASO % 0.1 % [facility] GRAN MAT 5.62 1.99 - 6.95 [facility] x10^3(ANC) 10*3/uL SERVICES IMM GRAN x10^3 0.03 0.00 - 0.06 [facility] 10*3/uL SERVICES LYMPH x10^3 1.99 1.09 - 3.23 [facility] 10*3/uL SERVICES MONO x10^3 0.27 (L) 0.36 - 1.02 [facility] 10*3/uL SERVICES EOS x10^3 <0.03 (L) 0.06 - 0.53 [facility] 10*3/uL SERVICES BASO x10^3 <0.03 0.01 - 0.09 [facility] 10*3/uL SERVICES TOXIC CHANGES Present (A) [facility] SERVICES Specimen Blood - ARM, LEFT Performing Organization Address City/[facility] Phone Number [facility] CLIA: [id number] [place] [address] [place] [address] MAGNESIUM (10/01/2020 3:40 AM MACHINE CLOTHING REPLACER) Pathologist Sig nature MAGNESIUM 2.0 1.7 - 2.4 mg/dL [facility] Specimen Blood - ARM, LEFT Performing Organization Address [facility] Phone Number [facility] CLIA: [id number] [place] [address] [place] [address] PHOSPHORUS (10/01/2020 3:40 AM MACHINE CLOTHING REPLACER) Pathologist Sig nature PHOSPHORUS 1.2 (L) 2.5 - 5.0 mg/dL [facility] Specimen Blood - ARM, LEFT Performing Organization Address [facility] Phone Number [facility] CLIA: [id number] [place] [address] [place] [address] PROTHROMBIN TIME / INR (10/01/2020 3:40 AM MACHINE CLOTHING REPLACER) PROTIME PATIENT 12.3 10.1 - 12.6 [facility] Seconds SERVICES INR 1.1Comment: Normal [facility] INR <1.1; Warfarin SERVICES Therapeutic range 2.0 to 3.0 or 2.5 to 3.5, depending upon the indications. Specimen Blood - ARM, LEFT Performing Organization Address [facility] Phone Number [facility] CLIA: [id number] [place] [address] [address] [facility] POCT GLUCOSE (AUTOMATED) (10/01/2020 3:06 AM MACHINE CLOTHING REPLACER) Pathologist Sig nature POCT GLU 118 (H) 70 - 110 mg/dL [facility] Specimen Blood Performing Organization Address City/[facility]/Zipcode Phone Number [facility] CLIA: [id number] [place] [address] [phone] 301 [facility] POCT GLUCOSE (AUTOMATED) (09/30/2020 5:08 PM MACHINE CLOTHING REPLACER) Pathologist Sig nature POCT GLU 129 (H) 70 - 110 mg/dL [facility] Specimen Blood Performing Organization Address City/[facility] Phone Number [facility] CLIA: [id number] [place] [address] [phone] 301 [facility] POCT GLUCOSE (AUTOMATED) (09/30/2020 11:53 AM MACHINE CLOTHING REPLACER) Pathologist Sig nature POCT GLU 104 70 - 110 mg/dL [facility] Specimen Blood Performing Organization Address [facility] Phone Number [facility] CLIA: [id number] [place] [address] [phone] 301 [facility] POCT GLUCOSE (AUTOMATED) (09/30/2020 6:08 AM MACHINE CLOTHING REPLACER) Pathologist Sig nature POCT GLU 76 70 - 110 mg/dL [facility] Specimen Blood Performing Organization Address [facility] Phone Number [facility] CLIA: [id number] [place] [address] [phone] 301 [facility] CBC WITH DIFF (09/30/2020 2:16 AM MACHINE CLOTHING REPLACER) Pathologist Sig nature WBC 7.11 4.20 - 10.70 [facility] 10*3/L SERVICES RBC 4.43 4.26 - 5.52 [facility] 10*6/L SERVICES HGB 12.6 12.2 - 16.4 [facility] g/dL SERVICES HCT 38.3 (L) 38.4 - 49.3 % [facility] MCV 86.5 81.7 - 95.6 fL [facility] MCH 28.4 26.1 - 32.7 pg [facility] MCHC 32.9 31.2 - 35.0 [facility] g/dL SERVICES RDW-SD 46.4 38.5 - 51.6 fL [facility] RDW-CV 14.7 12.1 - 15.4 % [facility] PLT 120 (L) 150 - 328 [facility] 10*3/L SERVICES MPV 12.2 9.8 - 13.0 fL [facility] NRBC/100 WBC 0.0 0.0 - 10.0 /100 [facility] WBCs SERVICES NRBC x10^3 <0.01 10*3/L [facility] GRAN MAT (NEUT) % 64.4 % [facility] IMM GRAN % 0.60 % [facility] LYMPH % 30.7 % [facility] MONO % 3.9 % [facility] EOS % 0.3 % [facility] BASO % 0.1 % [facility] GRAN MAT x10^3(ANC) 4.58 1.99 - 6.95 [facility] 10*3/uL SERVICES IMM GRAN x10^3 0.04 0.00 - 0.06 [facility] 10*3/uL SERVICES LYMPH x10^3 2.18 1.09 - 3.23 [facility] 10*3/uL SERVICES MONO x10^3 0.28 (L) 0.36 - 1.02 [facility] 10*3/uL SERVICES EOS x10^3 <0.03 (L) 0.06 - 0.53 [facility] 10*3/uL SERVICES BASO x10^3 <0.03 0.01 - 0.09 [facility] 10*3/uL SERVICES Specimen Blood - ARM, RIGHT Performing Organization Address City/State/Zipcode Phone Number [facility] CLIA: [id number] [place] [address] [place] [address] COMP. 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) NA 136 135 - 145 [facility] mmol/L SERVICES K 3.7Comment: 3.5 - 5.0 [facility] Slight hemolysis mmol/L SERVICES CL 101 98 - 108 [facility] mmol/L SERVICES CO2 TOTAL 31 23 - 31 [facility] mmol/L SERVICES AGAP 4 2 - 16 [facility] SERVICES BUN 21Comment: Slight 7 - 23 mg/dL [facility] hemolysis SERVICES GLUCOSE 63 (L) 70 - 110 [facility] mg/dL SERVICES CREATININE 0.68 0.60 - 1.25 [facility] mg/dL SERVICES TOTAL BILI 2.3 (H) 0.1 - 1.1 [facility] mg/dL SERVICES CALCIUM 7.4 (L) 8.6 - 10.6 [facility] mg/dL SERVICES T PROTEIN 7.2 6.3 - 8.2 [facility] g/dL SERVICES ALBUMIN 3.4 (L) 3.5 - 5.0 [facility] g/dL SERVICES ALK PHOS 792 (H)Comment: 34 - 122 U/L [facility] Slight hemolysis SERVICES ALTv 463 (H) 5 - 50 U/L [facility] SERVICES AST(SGOT) 408 (H)Comment: 13 - 40 U/L [facility] Slight hemolysis SERVICES eGFR Calculation 131.9 mL/min/1.73m2 [facility] (Non- SERVICES Croatian) eGFR Calculation 159.9 mL/min/1.73m2 [facility] () SERVICES Specimen Blood - ARM, RIGHT Narrative Performed At Association of Glomerular Filtration Rate (GFR) and St aging [facility] SERVICES of Kidney Disease* + + [...] in imaging tests) . Performing Organization Address City/State/Zipcone Phone Number [facility] CLIA: [id number] [place] [address] [place] [address] MAGNESIUM (09/30/2020 2:16 AM MACHINE CLOTHING REPLACER) Pathologist Sig nature MAGNESIUM 1.7 1.7 - 2.4 mg/dL [facility] SERVICES Specimen Blood - ARM, RIGHT Performing Organization Address [facility] Phone Number [facility] CLIA: [id number] [place] [address] [place] [address] PHOSPHORUS (09/30/2020 2:16 AM MACHINE CLOTHING REPLACER) Pathologist Sig nature PHOSPHORUS 1.5 (L) 2.5 - 5.0 mg/dL [facility] SERVICES Specimen Blood - ARM, RIGHT Performing Organization Address [facility] Phone Number [facility] CLIA: [id number] [place] [address] [place] [address] PROTHROMBIN TIME / INR (09/30/2020 2:16 AM MACHINE CLOTHING REPLACER) PROTIME PATIENT 13.4 (H) 10.1 - 12.6 [facility] Seconds SERVICES INR 1.2Comment: Normal [facility] INR <1.1; Warfarin SERVICES Therapeutic range 2.0 to 3.0 or 2.5 to 3.5, depending upon the indications. Specimen Blood - ARM, RIGHT Performing Organization Address [facility] Phone Number [facility] CLIA: [id number] [place] [address] [place] [address] POCT GLUCOSE (AUTOMATED) (09/29/2020 8:15 PM MACHINE CLOTHING REPLACER) Pathologist Sig nature POCT GLU 94 70 - 110 mg/dL [facility] Specimen Blood Performing Organization Address [facility] Phone Number [facility] CLIA: [id number] [place] [address] [place] [address] POCT GLUCOSE (AUTOMATED) (09/29/2020 5:46 PM MACHINE CLOTHING REPLACER) Pathologist Sig nature POCT GLU 88 70 - 110 mg/dL [facility] Specimen Blood Performing Organization Address City/State/Zipcode Phone Number [facility] CLIA: [id number] [place] [address] [phone] 301 [facility] POCT GLUCOSE (AUTOMATED) (09/29/2020 11:44 AM MACHINE CLOTHING REPLACER) Pathologist Sig nature POCT GLU 78 70 - 110 mg/dL [facility] Specimen Blood Performing Organization Address City/[facility] Phone Number [facility] CLIA: [id number] [place] [address] [phone] 301 [facility] POCT GLUCOSE (AUTOMATED) (09/29/2020 9:20 AM MACHINE CLOTHING REPLACER) Pathologist Sig nature POCT GLU 89 70 - 110 mg/dL [facility] Specimen Blood Performing Organization Address City/[facility] Phone Number [facility] CLIA: [id number] [place] [address] [place] [address] PREALBUMIN (09/29/2020 5:34 AM MACHINE CLOTHING REPLACER) Pathologist Sig nature PALB 8.9 (L) 18.0 - 45.0 mg/dL [facility] S Specimen Blood - LINE, VENOUS Performing Organization Address [facility] Phone Number [facility] CLIA: [id number] [place] [address] [phone] [address] [facility] PHOSPHORUS (09/29/2020 5:34 AM MACHINE CLOTHING REPLACER) Pathologist Sig nature PHOSPHORUS 2.6 2.5 - 5.0 mg/dL [facility] SERVICES Specimen Blood - LINE, VENOUS Performing Organization Address City/[facility]/Zipcode Phone Number [facility] CLIA: [id number] [place] [address] [phone] [address] [facility] FREE T3 (09/29/2020 5:34 AM MACHINE CLOTHING REPLACER) Pathologist Sig nature FREE T3 1.79 (L) 2.77 - 5.27 pg/mL [facility] S Specimen Blood - LINE, VENOUS Performing Organization Address City/[facility] Phone Number [facility] CLIA: [id number] [place] [address] [place] [address] THYROID STIMULATING HORMONE (09/29/2020 5:34 AM MACHINE CLOTHING REPLACER) Pathologist Sig nature TSH 0.67 0.45 - 4.70 mIU/L [facility] SERVICE S Specimen Blood - LINE, VENOUS Performing Organization Address City/State/Zipcode Phone Number [facility] CLIA: [id number] [place] [address] [place] [address] CBC WITH DIFF (09/29/2020 5:34 AM MACHINE CLOTHING REPLACER) Pathologist Sig nature WBC 7.67 4.20 - 10.70 [facility] 10*3/L SERVICES RBC 3.95 (L) 4.26 - 5.52 [facility] 10*6/L SERVICES HGB 11.4 (L) 12.2 - 16.4 [facility] g/dL SERVICES HCT 34.7 (L) 38.4 - 49.3 % [facility] SERVICES MCV 87.8 81.7 - 95.6 fL [facility] SERVICES MCH 28.9 26.1 - 32.7 pg [facility] MCHC 32.9 31.2 - 35.0 [facility] g/dL SERVICES RDW-SD 49.1 38.5 - 51.6 fL [facility] SERVICES RDW-CV 15.5 (H) 12.1 - 15.4 % [facility] PLT 113 (L) 150 - 328 [facility] 10*3/L SERVICES MPV 11.4 9.8 - 13.0 fL [facility] SERVICES NRBC/100 WBC 0.0 0.0 - 10.0 /100 [facility] WBCs SERVICES NRBC x10^3 <0.01 10*3/L [facility] GRAN MAT (NEUT) % 61.6 % [facility] IMM GRAN % 0.90 % [facility] LYMPH % 32.7 % [facility] MONO % 4.6 % [facility] EOS % 0.1 % [facility] BASO % 0.1 % [facility] GRAN MAT x10^3(ANC) 4.72 1.99 - 6.95 [facility] 10*3/uL SERVICES IMM GRAN x10^3 0.07 (H) 0.00 - 0.06 [facility] 10*3/uL SERVICES LYMPH x10^3 2.51 1.09 - 3.23 [facility] 10*3/uL SERVICES MONO x10^3 0.35 (L) 0.36 - 1.02 [facility] 10*3/uL SERVICES EOS x10^3 <0.03 (L) 0.06 - 0.53 [facility] 10*3/uL SERVICES BASO x10^3 <0.03 0.01 - 0.09 [facility] 10*3/uL SERVICES Specimen Blood - LINE, VENOUS Performing Organization Address City/State/Zipcode Phone Number [facility] CLIA: [id number] [place] [address] [place] [address] COMP. METABOLIC PANEL ([id number]) (09/29/2020 5:34 AM MACHINE CLOTHING REPLACER) Pathologist [facility] nature NA 139 135 - 145 [facility] mmol/L SERVICES K 4.9 3.5 - 5.0 [facility] mmol/L SERVICES CL 104 98 - 108 mmol/L [facility] SERVICES CO2 TOTAL 32 (H) 23 - 31 mmol/L [facility] SERVICES AGAP 3 2 - 16 [facility] SERVICES BUN 40 (H) 7 - 23 mg/dL [facility] SERVICES GLUCOSE 100 70 - 110 mg/dL [facility] SERVICES CREATININE 1.10 0.60 - 1.25 [facility] mg/dL SERVICES TOTAL BILI 2.7 (H) 0.1 - 1.1 mg/dL [facility] SERVICES CALCIUM 7.4 (L) 8.6 - 10.6 [facility] mg/dL SERVICES T PROTEIN 6.4 6.3 - 8.2 g/dL [facility] SERVICES ALBUMIN 2.9 (L) 3.5 - 5.0 g/dL [facility] SERVICES ALK PHOS 773 (H) 34 - 122 U/L [facility] SERVICES ALTv 439 (H) 5 - 50 U/L [facility] SERVICES AST(SGOT) 304 (H) 13 - 40 U/L [facility] SERVICES eGFR Calculation 75.7 mL/min/1.73m2 [facility] (Non- SERVICES Croatian) eGFR Calculation 91.8 mL/min/1.73m2 [facility] () SERVICES Specimen Blood - LINE, VENOUS Narrative Performed At Association of Glomerular Filtration Rate (GFR) and St aging [facility] SERVICES of Kidney Disease* + + [...] in imaging tests) . Performing Organization Address [facility] Phone Number [facility] CLIA: [id number] [place], [place] [address] [address] [place] [address] HCV BY PCR (09/29/2020 5:34 AM MACHINE CLOTHING REPLACER) [facility] HCV by Real-Time Not Detected Not detected [facility] PCR IU/mL SERVICES Specimen Blood - LINE, VENOUS Narrative Performed At [employer] Real[employer] HCV [employer] [facility] LABORATORY SERVICES chain reaction (RT-PCR) assay is used. It is FDA approved for the quantitation of HCV in plasma and serum samples for HCV-infected individua ls. The FDA approved dynamic range of this test is 12 IU/mL to 100,000,000 IU/mL (1.08-8.00 Log IU/mL). Assay results are reported in IU /mL. . Result Interpretation: Not Detected: Target not detected (not the same as negative), <12 IU/mL: Detected (but not quantifiabl e) 12-100,000,000 IU/mL, >100,000,000 IU/mL: >upper limit of lei tification. Performing Organization Address [facility] Phone Number [facility] CLIA: [id number] [place], [place] [address] [address] [place] [address] HBV BY REAL-TIME PCR (09/29/2020 5:34 AM MACHINE CLOTHING REPLACER) Pathologist Sig nature HBV PCR Not Detected Not Detected [facility] SERVICES Specimen Blood - LINE, VENOUS Narrative Performed At The test uses Sanders Real Time HBV assay. It is FDA ap proved [facility] SERVICES for plasma and serum samples to measure HBV DNA for us e as an aid in the management of HBV-infected patients unde rgoing antiviral therapy. The FDA approved result ranges of t he test are: Not Detected <10 IU/mL, <1.00 Log IU/mL 10 - 10^9 IU/mL, 1.00-9.00 Log IU/mL >10^9 IU/mL, >9.00 Log IU/mL Performing Organization Address City/[facility]/Zipcode Phone Number [facility] CLIA: [id number] [place] [address] [place] [address] PROTHROMBIN TIME / INR (09/29/2020 5:33 AM MACHINE CLOTHING REPLACER) PROTIME PATIENT 14.2 (H) 10.1 - 12.6 [facility] Seconds SERVICES INR 1.2Comment: Normal [facility] INR <1.1; Warfarin SERVICES Therapeutic range 2.0 to 3.0 or 2.5 to 3.5, depending upon the indications. Specimen Blood - LINE, VENOUS Performing Organization Address [facility] Phone Number [facility] CLIA: [id number] [place] [address] [place] [address] POCT GLUCOSE (AUTOMATED) (09/28/2020 9:04 PM MACHINE CLOTHING REPLACER) Pathologist Sig nature POCT GLU 84 70 - 110 mg/dL [facility] Specimen Blood Performing Organization Address City/[facility] Phone Number [facility] CLIA: [id number] [place] [address] [place] [address] POCT GLUCOSE (AUTOMATED) (09/28/2020 6:32 PM MACHINE CLOTHING REPLACER) Pathologist Sig nature POCT GLU 105 70 - 110 mg/dL [facility] Specimen Blood Performing Organization Address [facility] Phone Number [facility] CLIA: [id number] [place] [address] [phone] 301 [facility] POCT GLUCOSE (AUTOMATED) (09/28/2020 5:30 PM MACHINE CLOTHING REPLACER) Pathologist Sig nature POCT GLU 90 70 - 110 mg/dL [facility] Specimen Blood Performing Organization Address City/[facility] Phone Number [facility] CLIA: [id number] [place] [address] [place] [address] POCT GLUCOSE (AUTOMATED) (09/28/2020 1:25 PM MACHINE CLOTHING REPLACER) Pathologist Sig nature POCT GLU 93 70 - 110 mg/dL [facility] Specimen Blood Performing Organization Address [facility] Phone Number [facility] CLIA: [id number] [place] [address] [place] [address] HEPATITIS B CORE ANTIBODY IGM (09/28/2020 1:22 PM MACHINE CLOTHING REPLACER) Pathologist Sig nature HBCM Negative [facility] HBCM Semi-Quantitative 0.12 [facility] Specimen Blood - VENOUS Narrative Performed At Biotin has been reported to cause a negative bias, int erpret [facility] results relative to patient's use of biotin. Performing Organization Address [facility] Phone Number [facility] CLIA: [id number] [place] [address] [place] [address] POTASSIUM SERUM (09/28/2020 1:22 PM MACHINE CLOTHING REPLACER) Pathologist Sig nature K 5.3 (H) 3.5 - 5.0 mmol/L [facility] Specimen Blood - VENOUS Performing Organization Address City/[facility] Phone Number [facility] CLIA: [id number] [place] [address] [phone] 301 [facility] BILI UNCONJUGATED/BILI CONJUG (09/28/2020 1:22 PM MACHINE CLOTHING REPLACER) Pathologist Sig nature BILI CONJ 0.0 0.0 - 0.3 mg/dL [facility] BILI UNCON 2.7 (H) 0.1 - 1.1 mg/dL [facility] Specimen Blood - VENOUS Performing Organization Address City/State/Zipcode Phone Number [facility] CLIA: [id number] [place], [place] [id number] [address] [place] [address] CBC WITH DIFF (09/28/2020 1:22 PM MACHINE CLOTHING REPLACER) [facility] WBC 8.01 4.20 - 10.70 [facility] 10*3/L SERVICES RBC 3.79 (L) 4.26 - 5.52 [facility] 10*6/L SERVICES HGB 10.8 (L) 12.2 - 16.4 [facility] g/dL SERVICES HCT 33.4 (L) 38.4 - 49.3 % [facility] MCV 88.1 81.7 - 95.6 fL [facility] MCH 28.5 26.1 - 32.7 pg [facility] MCHC 32.3 31.2 - 35.0 [facility] g/dL SERVICES RDW-SD 50.1 38.5 - 51.6 fL [facility] RDW-CV 15.9 (H) 12.1 - 15.4 % [facility] PLT 142 (L) 150 - 328 [facility] 10*3/L SERVICES MPV 11.4 9.8 - 13.0 fL [facility] NRBC/100 WBC 0.0 0.0 - 10.0 /100 [facility] WBCs SERVICES NRBC x10^3 <0.01 10*3/L [facility] GRAN MAT (NEUT) % 60.6 % [facility] IMM GRAN % 0.60 % [facility] LYMPH % 32.5 % [facility] MONO % 6.1 % [facility] EOS % 0.1 % [facility] BASO % 0.1 % [facility] GRAN MAT x10^3(ANC) 4.85 1.99 - 6.95 [facility] 10*3/uL SERVICES IMM GRAN x10^3 0.05 0.00 - 0.06 [facility] 10*3/uL SERVICES LYMPH x10^3 2.60 1.09 - 3.23 [facility] 10*3/uL SERVICES MONO x10^3 0.49 0.36 - 1.02 [facility] 10*3/uL SERVICES EOS x10^3 <0.03 (L) 0.06 - 0.53 [facility] 10*3/uL SERVICES BASO x10^3 <0.03 0.01 - 0.09 [facility] 10*3/uL SERVICES Specimen Blood - VENOUS Performing Organization Address City/[facility] Phone Number [facility] CLIA: [id number] [place] [address] [place] [address] POCT GLUCOSE (AUTOMATED) (09/28/2020 10:03 AM MACHINE CLOTHING REPLACER) Pathologist [facility] POCT GLU 96 70 - 110 mg/dL [facility] Specimen Blood Performing Organization Address City/[facility] Phone Number [facility] CLIA: [id number] [place] [address] [place] [address] CD4/CD8 SUBSET ASSAY (09/28/2020 10:01 AM MACHINE CLOTHING REPLACER) Pathologist Sig nature CD4 % 36 31 - 60 % [facility] CD4 Absolute 833 410-1,590 Cells/L [facility] SERVI NORMAN CD8 % 37 13 - 41 % [facility] CD8 ABS# 845 190-1,140 Cells/L [facility] SERVI [place]MAN CD4/CD8 Ratio 1.0 0.8 - 4.2 Ratio [facility] Specimen Blood - VENOUS Performing Organization Address [facility] Phone Number [facility] CLIA: [id number] [place] [address] [place] [address] HEPATITIS A VIRUS ANTIBODY IGM (09/28/2020 10:00 AM MACHINE CLOTHING REPLACER) Pathologist Sig nature HAVAb IgM Negative [facility] HAVM Semi-Quantitative 0.04 [facility] Specimen Blood - VENOUS Narrative Performed At HAVAb IgM Interpretative Information: [facility] Reactive greater than or equal to 1.2 Biotin has been reported to cause a negative bias, int erpret results relative to patient's use of bio tin. Performing Organization Address City/[facility] Phone Number [facility] CLIA: [id number] [place] [address] [place] [address] PHOSPHORUS (09/28/2020 10:00 AM MACHINE CLOTHING REPLACER) Pathologist Sig nature PHOSPHORUS 2.6 2.5 - 5.0 mg/dL [facility] Specimen Blood - VENOUS Performing Organization Address City/State/Zipcode Phone Number [facility] CLIA: [id number] [place] [address] [place] [address] MAGNESIUM (09/28/2020 10:00 AM MACHINE CLOTHING REPLACER) Pathologist Sig nature MAGNESIUM 2.0 1.7 - 2.4 mg/dL [facility] Specimen Blood - VENOUS Performing Organization Address City/[facility]/Zipcode Phone Number [facility] CLIA: [id number] [place] [address] [place] [address] COMP. METABOLIC PANEL (02760) (09/28/2020 10:00 AM MACHINE CLOTHING REPLACER) Pathologist Sig nature NA 140 135 - 145 [facility] mmol/L SERVICES K 5.2 (H) 3.5 - 5.0 [facility] mmol/L SERVICES CL 111 (H) 98 - 108 mmol/L [facility] CO2 TOTAL 28 23 - 31 mmol/L [facility] AGAP 1 (L) 2 - 16 [facility] BUN 56 (H) 7 - 23 mg/dL [facility] SERVICES GLUCOSE 99 70 - 110 mg/dL [facility] CREATININE 1.11 0.60 - 1.25 [facility] mg/dL SERVICES TOTAL BILI 3.1 (H) 0.1 - 1.1 mg/dL [facility] CALCIUM 7.4 (L) 8.6 - 10.6 [facility] mg/dL SERVICES T PROTEIN 6.2 (L) 6.3 - 8.2 g/dL [facility] ALBUMIN 2.8 (L) 3.5 - 5.0 g/dL [facility] ALK PHOS 773 (H) 34 - 122 U/L [facility] ALTv 483 (H) 5 - 50 U/L [facility] AST(SGOT) 434 (H) 13 - 40 U/L [facility] eGFR Calculation 75.0 mL/min/1.73m2 [facility] (Non- SERVICES Croatian) eGFR Calculation 90.8 mL/min/1.73m2 [facility] () SERVICES Specimen Blood - VENOUS Narrative Performed At Association of Glomerular Filtration Rate (GFR) and St aging [facility] of Kidney Disease* + + [...] . Performing Organization Address City/State/Zipcode Phone Number [facility] CLIA: [id number] [place] [address] [place] [address] POCT GLUCOSE (AUTOMATED) (09/28/2020 5:11 AM MACHINE CLOTHING REPLACER) Pathologist Sig nature POCT GLU 116 (H) 70 - 110 mg/dL [facility] Specimen Blood Performing Organization Address City/[facility]/Zipcode Phone Number [facility] CLIA: [id number] [place] [address] [place] [address] BASIC METABOLIC PANEL (NA, K, CL, CO2, GLUCOSE, BUN, CREATININE, CA) (09/28/2020 5:11 AM MACHINE CLOTHING REPLACER) NA 140 135 - 145 [facility] mmol/L SERVICES K 5.1 (H) 3.5 - 5.0 [facility] mmol/L SERVICES CL 111 (H) 98 - 108 mmol/L [facility] SERVICES CO2 TOTAL 25 23 - 31 mmol/L [facility] SERVICES AGAP 4 2 - 16 [facility] SERVICES BUN 64 (H) 7 - 23 mg/dL [facility] SERVICES GLUCOSE 120 (H) 70 - 110 mg/dL [facility] SERVICES CREATININE 1.35 (H) 0.60 - 1.25 [facility] mg/dL SERVICES CALCIUM 8.0 (L) 8.6 - 10.6 [facility] mg/dL SERVICES eGFR Calculation 59.8 mL/min/1.73m2 [facility] (Non- SERVICES Croatian) eGFR Calculation 72.5 mL/min/1.73m2 [facility] () SERVICES Specimen Blood - LINE, VENOUS Narrative Performed At Association of Glomerular Filtration Rate (GFR) and St aging [facility] SERVICES of Kidney Disease* + + [...] in imaging tests) . Performing Organization Address City/[facility]/Zipcode Phone Number [facility] CLIA: [id number] [place], [place] [address] [address] [place] [address] Glycosylated Hemoglobin (A1C) (09/28/2020 2:31 AM MACHINE CLOTHING REPLACER) Pathologist Sig nature HGB A1C 5.0 4.0 - 6.0 % [facility] Specimen Blood - LINE, VENOUS Performing Organization Address [facility]/Zipcode Phone Number [facility] CLIA: [id number] [place], [place] [address] [address] [facility] COMP. METABOLIC PANEL ([id number]) (09/28/2020 2:31 AM MACHINE CLOTHING REPLACER) NA 140 135 - 145 [facility] mmol/L SERVICES K 5.2 (H) 3.5 - 5.0 [facility] mmol/L SERVICES CL 112 (H) 98 - 108 mmol/L [facility] SERVICES CO2 TOTAL 23 23 - 31 mmol/L [facility] SERVICES AGAP 5 2 - 16 [facility] SERVICES BUN 67 (H) 7 - 23 mg/dL [facility] SERVICES GLUCOSE 174 (H) 70 - 110 mg/dL [facility] CREATININE 1.34 (H) 0.60 - 1.25 [facility] mg/dL SERVICES TOTAL BILI 2.9 (H) 0.1 - 1.1 mg/dL [facility] SERVICES CALCIUM 7.2 (L) 8.6 - 10.6 [facility] mg/dL SERVICES T PROTEIN 6.1 (L) 6.3 - 8.2 g/dL [facility] SERVICES ALBUMIN 2.8 (L) 3.5 - 5.0 g/dL [facility] ALK PHOS 861 (H) 34 - 122 U/L [facility] ALTv 515 (H) 5 - 50 U/L [facility] SERVICES AST(SGOT) 561 (H) 13 - 40 U/L [facility] SERVICES eGFR Calculation 60.3 mL/min/1.73m2 [facility] (Non- SERVICES Croatian) eGFR Calculation 73.1 mL/min/1.73m2 [facility] () SERVICES Specimen Blood - LINE, VENOUS Narrative Performed At Association of Glomerular Filtration Rate (GFR) and St aging [facility] SERVICES of Kidney Disease* + + [...] . Performing Organization Address City/State/Zipcode Phone Number [facility] CLIA: [id number] [place] [address] [place] [address] CBC WITH DIFF (09/28/2020 2:31 AM MACHINE CLOTHING REPLACER) [facility] Sig nature WBC 7.64 4.20 - 10.70 [facility] 10*3/L SERVICES RBC 3.71 (L) 4.26 - 5.52 [facility] 10*6/L SERVICES HGB 10.7 (L) 12.2 - 16.4 [facility] g/dL SERVICES HCT 32.7 (L) 38.4 - 49.3 % [facility] MCV 88.1 81.7 - 95.6 fL [facility] MCH 28.8 26.1 - 32.7 pg [facility] MCHC 32.7 31.2 - 35.0 [facility] g/dL SERVICES RDW-SD 50.9 38.5 - 51.6 fL [facility] RDW-CV 15.9 (H) 12.1 - 15.4 % [facility] PLT 144 (L) 150 - 328 [facility] 10*3/L SERVICES MPV 11.8 9.8 - 13.0 fL [facility] NRBC/100 WBC 0.0 0.0 - 10.0 /100 [facility] WBCs SERVICES NRBC x10^3 <0.01 10*3/L [facility] GRAN MAT (NEUT) % 66.3 % [facility] IMM GRAN % 1.00 % [facility] LYMPH % 27.2 % [facility] MONO % 5.4 % [facility] EOS % 0.1 % [facility] BASO % 0.0 % [facility] GRAN MAT x10^3(ANC) 5.06 1.99 - 6.95 [facility] 10*3/uL SERVICES IMM GRAN x10^3 0.08 (H) 0.00 - 0.06 [facility] 10*3/uL SERVICES LYMPH x10^3 2.08 1.09 - 3.23 [facility] 10*3/uL SERVICES MONO x10^3 0.41 0.36 - 1.02 [facility] 10*3/uL SERVICES EOS x10^3 <0.03 (L) 0.06 - 0.53 [facility] 10*3/uL SERVICES BASO x10^3 <0.03 0.01 - 0.09 [facility] 10*3/uL SERVICES Specimen Blood - LINE, VENOUS Performing Organization Address [facility] Phone Number [facility] CLIA: [id number] [place] [address] [phone] [address] [facility] POCT GLUCOSE (AUTOMATED) (09/28/2020 2:30 AM MACHINE CLOTHING REPLACER) Pathologist Sig nature POCT GLU 162 (H) 70 - 110 mg/dL [facility] Specimen Blood Performing Organization Address [facility] Phone Number [facility] CLIA: [id number] [place] [address] [place] [address] PROTHROMBIN TIME / INR (09/28/2020 1:35 AM MACHINE CLOTHING REPLACER) PROTIME PATIENT 18.7 (H) 10.1 - 12.6 [facility] Seconds SERVICES INR 1.6Comment: Normal [facility] INR <1.1; Warfarin SERVICES Therapeutic range 2.0 to 3.0 or 2.5 to 3.5, depending upon the indications. Specimen Blood - LINE, VENOUS Performing Organization Address [facility] Phone Number [facility] CLIA: [id number] [place] [address] [place] [address] POCT GLUCOSE (AUTOMATED) (09/28/2020 1:33 AM MACHINE CLOTHING REPLACER) Pathologist Sig nature POCT GLU >600 (HH) 70 - 110 mg/dL [facility] Specimen Blood Performing Organization Address [facility] Phone Number [facility] CLIA: [id number] [place] [address] [place] [address] POCT GLUCOSE (AUTOMATED) (09/27/2020 11:22 PM MACHINE CLOTHING REPLACER) Pathologist Sig nature POCT GLU 65 (L) 70 - 110 mg/dL [facility] Specimen Blood Performing Organization Address City/[facility] Phone Number [facility] CLIA: [id number] [place] [address] [place] [address] BASIC METABOLIC PANEL (NA, K, CL, CO2, GLUCOSE, BUN, CREATININE, CA) (09/27/2020 9:57 PM MACHINE CLOTHING REPLACER) NA 142 135 - 145 [facility] mmol/L SERVICES K 5.4 (H) 3.5 - 5.0 [facility] mmol/L SERVICES CL 117 (H) 98 - 108 mmol/L [facility] SERVICES CO2 TOTAL 21 (L) 23 - 31 mmol/L [facility] SERVICES AGAP 4 2 - 16 [facility] SERVICES BUN 69 (H) 7 - 23 mg/dL [facility] SERVICES GLUCOSE 62 (L) 70 - 110 mg/dL [facility] SERVICES CREATININE 1.29 (H) 0.60 - 1.25 [facility] mg/dL SERVICES CALCIUM 6.7 (L) 8.6 - 10.6 [facility] mg/dL SERVICES eGFR Calculation 63.0 mL/min/1.73m2 [facility] (Non- SERVICES Croatian) eGFR Calculation 76.4 mL/min/1.73m2 [facility] () SERVICES Specimen Blood - LINE, VENOUS Narrative Performed At Association of Glomerular Filtration Rate (GFR) and St aging [facility] SERVICES of Kidney Disease* + + [...] . Performing Organization Address City/State/Zipcode Phone Number [facility] CLIA: [id number] [place] [id number] [place] [address] MRSA / MSSA Screen by PCR, Nares (09/27/2020 9:57 PM MACHINE CLOTHING REPLACER) Pathologist Sig nature MRSA Screen by PCR, Negative Negative [facility] Nares SERVICES MSSA Screen by PCR, Positive (A) Negative [facility] Nares SERVICES MRSA/MSSA Positive? Yes (A) No [facility] Specimen Swab - NARES, BOTH SIDES Narrative Performed At A positive test result does not necessarily indicate t he [facility] presence of viable organism. Performing Organization Address City/[facility] Phone Number [facility] CLIA: [id number] [place] [address] [place] [address] ABG+COOX+NA+K+GLU+CA2+ (09/27/2020 7:39 PM MACHINE CLOTHING REPLACER) Pathologist Sig nature PH 7.38 7.35 - 7.45 [facility] PCO2 35 35 - 45 mmHg [facility] PO2 85 80 - 100 mmHg [facility] SERVICES HCO3 20 (L) 22 - 26 mEq/L [facility] SERVICES BE -4.4 (L) -3.0 - 3.0 mEq/L [facility] THB 11.5 (L) 13.5 - 18.0 g/dL [facility] SERVICES %O2HB 96.0 94.0 - 99.0 % [facility] SERVICES %COHB ART 0.3 0.0 - 1.5 % [facility] SERVICES %METHB ART 0.1 (L) 0.4 - 1.5 % [facility] SERVICES VOL%O2 ART 15.6 15.0 - 23.0 % [facility] NA 139 135 - 145 mmol/L [facility] SERVICES K+ 5.3 (H) 3.5 - 5.0 mmol/L [facility] SERVICES AC CA IONZ 4.50 4.50 - 5.30 mg/dL [facility] SERVICE S GLUCOSE 100 70 - 110 mg/dL [facility] SERVICES Specimen Blood - WRIST, RIGHT Performing Organization Address City/[facility]/Zipcode Phone Number [facility] CLIA: [id number] [place] [address] [phone] [address] [facility] COMP. 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) NA 141 135 - 145 [facility] mmol/L SERVICES K 5.4 (H) 3.5 - 5.0 [facility] mmol/L SERVICES CL 114 (H) 98 - 108 mmol/L [facility] SERVICES CO2 TOTAL 19 (L) 23 - 31 mmol/L [facility] SERVICES AGAP 8 2 - 16 [facility] SERVICES BUN 73 (H) 7 - 23 mg/dL [facility] SERVICES GLUCOSE 106 70 - 110 mg/dL [facility] SERVICES CREATININE 1.41 (H) 0.60 - 1.25 [facility] mg/dL SERVICES TOTAL BILI 2.7 (H) 0.1 - 1.1 mg/dL [facility] SERVICES CALCIUM 7.3 (L) 8.6 - 10.6 [facility] mg/dL SERVICES T PROTEIN 6.1 (L) 6.3 - 8.2 g/dL [facility] SERVICES ALBUMIN 2.8 (L) 3.5 - 5.0 g/dL [facility] SERVICES ALK PHOS 848 (H) 34 - 122 U/L [facility] ALTv 542 (H) 5 - 50 U/L [facility] SERVICES AST(SGOT) 693 (H) 13 - 40 U/L [facility] SERVICES eGFR Calculation 56.9 mL/min/1.73m2 [facility] (Non- SERVICES Croatian) eGFR Calculation 68.9 mL/min/1.73m2 [facility] () SERVICES Specimen Blood - LINE, VENOUS Narrative Performed At Association of Glomerular Filtration Rate (GFR) and St aging [facility] SERVICES of Kidney Disease* + + [...] . Performing Organization Address City/State/Zipcode Phone Number [facility] CLIA: [id number] [place] [address] POCT GLUCOSE (AUTOMATED) (09/27/2020 7:36 PM MACHINE CLOTHING REPLACER) Pathologist Sig nature POCT GLU 102 70 - 110 mg/dL [facility] Specimen Blood Performing Organization Address City/[facility]/Zipcode Phone Number [facility] CLIA: [id number] [place] [address] [phone] [address] [facility] ONLY COVID INTERPRETATION (09/27/2020 3:48 PM MACHINE CLOTHING REPLACER) COVID DMT Interpretation/Recommendations: [facility] Interpretation SERVICES Molecular NAAT Tests for Active Infection with the MAHENDRA S-CoV-2 Virus: While this patient had posit maria del rosario test results in the past, most recently this patient has tested negative on two or more consecutive occasions for the SARS-CoV-2 virus that causes COVID-19 illness. This most likely indicates that t he patient does not have an active infection with the SARS-CoV-2 virus, especially if these recent negative tests coincide with the patient's current presentation. However, i nfection is not completely r uled out as the false negative rate for molecular NAAT testing using a nasopharyngeal sample can be up to 30%, mostly dependent on the timing of sample collection in relation to illness onset and any de ficiencies in sampling techniques. If the patient continues to have persistent or worsening symptoms concerning for COVID-19 illness, a repeat NAAT test (PCR, Rapid ID Now, e tc.) should be performed, at which time the SARS-CoV-2 virus - if present - may have reached a detectable viral load (usually peaking by the end of the first week of symptoms). Tests for IgM and/or IgG Antibodies to SARS-CoV-2 Viru s: The patient has tested posit maria del rosario for SARS-CoV-2 IgG antibodies, consistent with previous SARS-CoV-2 infection. In SARS-CoV-2 infections, IgM and IgG antibodies can arise nearly simultaneously in the seru m within 2-3 weeks after ill ness onset. At this time, it is unknown if the production of IgG antibodies indicates immunity to the SARS-CoV-2 virus and how long antibody production lasts. Interpretation Result Comments: These interpretation comment s are based upon aggregate COVID-19 test results pooled from [facility]. They apply to the following tests offered at [facility] and assume the acceptable specimen type(s) were used: A. Tests for the Identification of SARS-CoV-2 RNA (Mol ecular NAAT Tests): - SARS-CoV-2 PCR assays including LightArrow Aptima, LightArrow Fusion, Sanders RealTime, and [employer] Xpert Xpress. - SARS-CoV-2 Rapid ID NOW by the ID NOW as say. B. Tests for the Identification of SARS-CoV-2 Antibodi es: - Chemiluminesce nt immunoassays including Access SARS-CoV-2 IgM (DXI 600), XAwareS Krdh-OHNC-YgJ-2 IgG (Vitros 5600 and Vitros 3600), and Sanders SARS-CoV-2 IgG (NETWORK SUPPORT TECHNICIAN I System). These interpretations are au topopulated into [facility] based on computerized algorithms matching an interpretation code to the patient's set of test results, and a clinical pathologist evaluates the comments for accuracy. However, thes e comments do not consider testing a patient may have had outside of the [facility] system. If results for COVID-19 infection continue to be negative in the context of a suspected viral respiratory illness, i t is possible the patient may have an infection with another respiratory virus. Influenza testing and a respiratory pathogen panel if clinically indicated may be beneficial i n this setting. If there con tinues to be a high degree of clinical suspicion for COVID-19 illness despite multiple negative tests on nasopharyngeal specimens, then it may be necessary to test the patien t for the SARS-CoV-2 virus u sing lower respiratory tract samples (such as sputum, bronchoalveolar lavage fluid (BAL), tracheal aspirate, etc.). COVID Results SARS-CoV-2 NAAT (no units) [facility] RY Date Value SERVICES 09/27/2020 Not Detected SARS-CoV-2 Rapid ID NOW (no units) Date Value 09/26/2020 Not Detected 09/20/2020 Positive (A) 08/28/2020 Not Detected 08/23/2020 Not Detected CoV-2 IgG (no units) Date Value 09/27/2020 Positive (A) Specimen Swab - NASOPHARYNGEAL SWAB Performing Organization Address [facility] Phone Number [facility] CLIA: [id number] [place] [address] [phone] [address] [facility] CORONAVIRUS COVID-19 TESTING (09/27/2020 3:48 PM MACHINE CLOTHING REPLACER) Pathologist [facility] SARS-CoV-2 NAAT Not Detected Not Detected [facility] SERVICES Specimen Swab - NASOPHARYNGEAL SWAB Narrative Performed At [employer] SARS-CoV-2 Assay is a rapid, [facility] real-time RT-PCR test intended for the qualitative det ection of nucleic acid from the SARS-CoV-2 in nasopharyngeal (SENIOR SHAREPOINT ARCHITECT) specimens. It is used under Emergency Use Authorizatio n (EUA) by FDA. A positive result is indicative of the presence of SARS-CoV-2 RNA. Clinical correlation with patient hi story and other diagnostic information is necessary to deter mine patient infection status. A negative (Not Detected) result does not preclude SARS-CoV-2 infection. A negative result does not rule out the presence of PCR inhibitors in the patient specimen or SARS-CoV-2 virus RNA concentrations below the limit of detection by the assay. Clinical correlation with olimpia ent history and other diagnostic information should be use d in patient management decisions. Invalid: Please collect a new specimen for repeat olimpia ent testing if clinically indicated. Performing Organization Address City/[facility] Phone Number [facility] CLIA: [id number] [place] [address] [phone] 301 [facility] BILI UNCONJUGATED/BILI CONJUG (09/27/2020 3:45 PM MACHINE CLOTHING REPLACER) Pathologist Sig nature BILI CONJ 0.0 0.0 - 0.3 mg/dL [facility] BILI UNCON 2.7 (H) 0.1 - 1.1 mg/dL [facility] Specimen Blood - ARM, RIGHT Performing Organization Address City/State/Zipcode Phone Number [facility] CLIA: [id number] [place] [address] [place] [address] COMP. METABOLIC PANEL (54078) (09/27/2020 3:45 PM MACHINE CLOTHING REPLACER) NA 141 135 - 145 [facility] mmol/L SERVICES K 5.7 (H) 3.5 - 5.0 [facility] mmol/L SERVICES CL 111 (H) 98 - 108 mmol/L [facility] CO2 TOTAL 22 (L) 23 - 31 mmol/L [facility] AGAP 8 2 - 16 [facility] BUN 85 (H) 7 - 23 mg/dL [facility] GLUCOSE 69 (L) 70 - 110 mg/dL [facility] CREATININE 1.42 (H) 0.60 - 1.25 [facility] mg/dL SERVICES TOTAL BILI 3.2 (H) 0.1 - 1.1 mg/dL [facility] CALCIUM 7.7 (L) 8.6 - 10.6 [facility] mg/dL SERVICES T PROTEIN 7.2 6.3 - 8.2 g/dL [facility] ALBUMIN 3.4 (L) 3.5 - 5.0 g/dL [facility] ALK PHOS 1,095 (H) 34 - 122 U/L [facility] ALTv 670 (H) 5 - 50 U/L [facility] AST(SGOT) 898 (H) 13 - 40 U/L [facility] eGFR Calculation 56.4 mL/min/1.73m2 [facility] (Non- SERVICES Croatian) eGFR Calculation 68.4 mL/min/1.73m2 [facility] () SERVICES Specimen Blood - ARM, RIGHT Narrative Performed At Association of Glomerular Filtration Rate (GFR) and St aging [facility] of Kidney Disease* + + [...] . Performing Organization Address City/State/Zipcode Phone Number [facility] CLIA: [id number] [place] [address] [place] [address] LAB ONLY COVID INTERPRETATION (09/27/2020 2:15 PM MACHINE CLOTHING REPLACER) COVID DMT Interpretation/Recommendations: [facility]ation SERVICES Molecular NAAT Tests for Active Infection with the MAHENDRA S-CoV-2 Virus: While this patient had posit maria del rosario test results in the past, most recently this patient has tested negative on two or more consecutive occasions for the SARS-CoV-2 virus that causes COVID-19 illness. This most likely indicates that t he patient does not have an active infection with the SARS-CoV-2 virus, especially if these recent negative tests coincide with the patient's current presentation. However, i nfection is not completely r uled out as the false negative rate for molecular NAAT testing using a nasopharyngeal sample can be up to 30%, mostly dependent on the timing of sample collection in relation to illness onset and any de ficiencies in sampling techniques. If the patient continues to have persistent or worsening symptoms concerning for COVID-19 illness, a repeat NAAT test (PCR, Rapid ID Now, e tc.) should be performed, at which time the SARS-CoV-2 virus - if present - may have reached a detectable viral load (usually peaking by the end of the first week of symptoms). Tests for IgM and/or IgG Antibodies to SARS-CoV-2 Viru s: The patient has tested posit maria del rosario for SARS-CoV-2 IgG antibodies, consistent with previous SARS-CoV-2 infection. In SARS-CoV-2 infections, IgM and IgG antibodies can arise nearly simultaneously in the seru m within 2-3 weeks after ill ness onset. At this time, it is unknown if the production of IgG antibodies indicates immunity to the SARS-CoV-2 virus and how long antibody production lasts. Interpretation Result Comments: These interpretation comment s are based upon aggregate COVID-19 test results pooled from [facility]. They apply to the following tests offered at [facility] and assume the acceptable specimen type(s) were used: A. Tests for the Identification of SARS-CoV-2 RNA (Mol ecular NAAT Tests): - SARS-CoV-2 PCR assays including LightArrow Aptima, LightArrow Fusion, Sanders RealTime, and Evo.com Xpert Xpress. - SARS-CoV-2 Rapid ID NOW by the ID NOW as say. B. Tests for the Identification of SARS-CoV-2 Antibodi es: - Chemiluminesce nt immunoassays including Access SARS-CoV-2 IgM (DXI 600), XAwareS Zxon-ZWTN-XbZ-2 IgG (Vitros 5600 and Vitros 3600), and Sanders SARS-CoV-2 IgG (NETWORK SUPPORT TECHNICIAN I System). These interpretations are au topopulated into [facility] based on computerized algorithms matching an interpretation code to the patient's set of test results, and a clinical pathologist evaluates the comments for accuracy. However, thes e comments do not consider testing a patient may have had outside of the [facility] system. If results for COVID-19 infection continue to be negative in the context of a suspected viral respiratory illness, i t is possible the patient may have an infection with another respiratory virus. Influenza testing and a respiratory pathogen panel if clinically indicated may be beneficial i n this setting. If there con tinues to be a high degree of clinical suspicion for COVID-19 illness despite multiple negative tests on nasopharyngeal specimens, then it may be necessary to test the patien t for the SARS-CoV-2 virus u sing lower respiratory tract samples (such as sputum, bronchoalveolar lavage fluid (BAL), tracheal aspirate, etc.). COVID Results SARS-CoV-2 NAAT (no units) [facility] RY Date Value SERVICES 09/27/2020 Not Detected SARS-CoV-2 Rapid ID NOW (no units) Date Value 09/26/2020 Not Detected 09/20/2020 Positive (A) 08/28/2020 Not Detected 08/23/2020 Not Detected CoV-2 IgG (no units) Date Value 09/27/2020 Positive (A) Specimen Blood Performing Organization Address City/State/Zipcode Phone Number [facility] CLIA: [id number] [place] [address] [place] [address] CBC WITH DIFF (09/27/2020 2:15 PM MACHINE CLOTHING REPLACER) Pathologist Sig nature WBC 9.80 4.20 - 10.70 [facility] 10*3/L SERVICES RBC 4.19 (L) 4.26 - 5.52 [facility] 10*6/L SERVICES HGB 11.9 (L) 12.2 - 16.4 [facility] g/dL SERVICES HCT 36.9 (L) 38.4 - 49.3 % [facility] MCV 88.1 81.7 - 95.6 fL [facility] MCH 28.4 26.1 - 32.7 pg [facility] MCHC 32.2 31.2 - 35.0 [facility] g/dL SERVICES RDW-SD 50.4 38.5 - 51.6 fL [facility] RDW-CV 16.0 (H) 12.1 - 15.4 % [facility] PLT 177 150 - 328 [facility] 10*3/L SERVICES MPV 11.5 9.8 - 13.0 fL [facility] NRBC/100 WBC 0.0 0.0 - 10.0 /100 [facility] WBCs SERVICES NRBC x10^3 <0.01 10*3/L [facility] GRAN MAT (NEUT) % 68.5 % [facility] IMM GRAN % 1.40 % [facility] LYMPH % 22.2 % [facility] MONO % 7.8 % [facility] EOS % 0.0 % [facility] BASO % 0.1 % [facility] GRAN MAT x10^3(ANC) 6.71 1.99 - 6.95 [facility] 10*3/uL SERVICES IMM GRAN x10^3 0.14 (H) 0.00 - 0.06 [facility] 10*3/uL SERVICES LYMPH x10^3 2.18 1.09 - 3.23 [facility] 10*3/uL SERVICES MONO x10^3 0.76 0.36 - 1.02 [facility] 10*3/uL SERVICES EOS x10^3 <0.03 (L) 0.06 - 0.53 [facility] 10*3/uL SERVICES BASO x10^3 <0.03 0.01 - 0.09 [facility] 10*3/uL SERVICES Specimen Blood - ARM, RIGHT Performing Organization Address [facility] Phone Number [facility] CLIA: [id number] [place] [address] [place] [address] SARS-COV-2 IGG (09/27/2020 2:15 PM MACHINE CLOTHING REPLACER) Pathologist Sig nature CoV-2 IgG Positive (A)Comment: A Negative [facility] positive result SERVICES suggests exposure to SARS-CoV-2 but does not necessarily indicate immunity. Results should be used in conjunction with symptoms, other test results and clinical impression. This test should not be used for screening of donated blood. Specimen Blood Narrative Performed At This test has been approved by FDA for emergency use. [facility] Performing Organization Address [facility] Phone Number [facility] CLIA: [id number] [place] [address] [phone] 301 [facility] CREATINE KINASE (09/27/2020 2:15 PM MACHINE CLOTHING REPLACER) Pathologist Sig nature CK 388 (H) 33 - 194 U/L [facility] Specimen Blood Performing Organization Address [facility] Phone Number [facility] CLIA: [id number] [place] [address] [phone] 301 [facility] COMP. METABOLIC PANEL (49352) (09/27/2020 2:15 PM MACHINE CLOTHING REPLACER) NA 142 135 - 145 [facility] mmol/L SERVICES K 6.3 (HH) 3.5 - 5.0 [facility] mmol/L SERVICES CL 112 (H) 98 - 108 mmol/L [facility] CO2 TOTAL 26 23 - 31 mmol/L [facility] AGAP 4 2 - 16 [facility] BUN 89 (H) 7 - 23 mg/dL [facility] GLUCOSE 135 (H) 70 - 110 mg/dL [facility] CREATININE 1.30 (H) 0.60 - 1.25 [facility] mg/dL SERVICES TOTAL BILI 3.2 (H) 0.1 - 1.1 mg/dL [facility] CALCIUM 7.5 (L) 8.6 - 10.6 [facility] mg/dL SERVICES T PROTEIN 6.7 6.3 - 8.2 g/dL [facility] SERVICES ALBUMIN 3.1 (L) 3.5 - 5.0 g/dL [facility] ALK PHOS 1,035 (H) 34 - 122 U/L [facility] ALTv 652 (H) 5 - 50 U/L [facility] SERVICES AST(SGOT) 906 (H) 13 - 40 U/L [facility] eGFR Calculation 62.5 mL/min/1.73m2 [facility] (Non- SERVICES Croatian) eGFR Calculation 75.7 mL/min/1.73m2 [facility] () SERVICES Specimen Blood Narrative Performed At Association of Glomerular Filtration Rate (GFR) and St aging [facility] of Kidney Disease* + + [...] . Performing Organization Address City/State/Zipcode Phone Number [facility] CLIA: [id number] [place] [address] [place] [address] POCT GLUCOSE (AUTOMATED) (09/27/2020 1:21 PM MACHINE CLOTHING REPLACER) Pathologist Sig nature POCT GLU 158 (H) 70 - 110 mg/dL [facility] Specimen Blood Performing Organization Address City/[facility]/Zipcode Phone Number [facility] CLIA: [id number] [place] [address] [place] [address] BASIC METABOLIC PANEL (NA, K, CL, CO2, GLUCOSE, BUN, CREATININE, CA) (09/27/2020 10:02 AM MACHINE CLOTHING REPLACER) NA 142 135 - 145 [facility] mmol/L SERVICES K 6.3 (HH) 3.5 - 5.0 [facility] mmol/L SERVICES CL 114 (H) 98 - 108 mmol/L [facility] SERVICES CO2 TOTAL 24 23 - 31 mmol/L [facility] SERVICES AGAP 4 2 - 16 [facility] BUN 95 (H) 7 - 23 mg/dL [facility] SERVICES GLUCOSE 135 (H) 70 - 110 mg/dL [facility] CREATININE 1.36 (H) 0.60 - 1.25 [facility] mg/dL SERVICES CALCIUM 7.4 (L) 8.6 - 10.6 [facility] mg/dL SERVICES eGFR Calculation 59.3 mL/min/1.73m2 [facility] (Non- SERVICES Croatian) eGFR Calculation 71.9 mL/min/1.73m2 [facility] () SERVICES Specimen Blood - VENOUS Narrative Performed At Association of Glomerular Filtration Rate (GFR) and St aging [facility] of Kidney Disease* + + [...] in imaging tests) . Performing Organization Address City/[facility] Phone Number [facility] CLIA: [id number] [place] [address] [phone] 301 [facility] POCT GLUCOSE (AUTOMATED) (09/27/2020 6:23 AM MACHINE CLOTHING REPLACER) Pathologist [facility] POCT GLU >600 (HH) 70 - 110 mg/dL [facility] Specimen Blood Performing Organization Address [facility] Phone Number [facility] CLIA: [id number] [place] [address] [place] [address] PROTHROMBIN TIME / INR (09/27/2020 6:13 AM MACHINE CLOTHING REPLACER) Pathologist [facility] PROTIME PATIENT 20.5 (H) 10.1 - 12.6 [facility] Seconds SERVICES INR 1.8Comment: Normal [facility] INR <1.1; Warfarin SERVICES Therapeutic range 2.0 to 3.0 or 2.5 to 3.5, depending upon the indications. Specimen Blood - WRIST, LEFT Performing Organization Address [facility] Phone Number [facility] CLIA: [id number] [place] [address] [phone] 301 [facility] ACTIVATED PARTIAL THRMPLAS LAURA (09/27/2020 6:13 AM MACHINE CLOTHING REPLACER) [facility] APTT Patient 36 26 - 36 Seconds [facility] Specimen Blood - WRIST, LEFT Performing Organization Address [facility] Phone Number [facility] CLIA: [id number] [place] [address] [phone] 301 [facility] CBC WITH DIFF (09/27/2020 6:13 AM MACHINE CLOTHING REPLACER) WBC 8.40 4.20 - 10.70 [facility] 10*3/L SERVICES RBC 3.54 (L) 4.26 - 5.52 [facility] 10*6/L SERVICES HGB 10.2 (L) 12.2 - 16.4 [facility] g/dL SERVICES HCT 31.1 (L) 38.4 - 49.3 % [facility] MCV 87.9 81.7 - 95.6 fL [facility] MCH 28.8 26.1 - 32.7 pg [facility] MCHC 32.8 31.2 - 35.0 [facility] g/dL SERVICES RDW-SD 49.4 38.5 - 51.6 fL [facility] RDW-CV 15.7 (H) 12.1 - 15.4 % [facility] PLT 159 150 - 328 [facility] 10*3/L SERVICES MPV 11.3 9.8 - 13.0 fL [facility] NRBC/100 WBC 0.0 0.0 - 10.0 [facility] /100 WBCs SERVICES NRBC x10^3 <0.01 10*3/L [facility] SERVICES GRAN MAT (NEUT) % 69.1 % [facility] IMM GRAN % 1.70 % [facility] LYMPH % 22.5 % [facility] MONO % 6.5 % [facility] EOS % 0.0 % [facility] BASO % 0.2 % [facility] GRAN MAT 5.80 1.99 - 6.95 [facility] x10^3(ANC) 10*3/uL SERVICES IMM GRAN x10^3 0.14 (H) 0.00 - 0.06 [facility] 10*3/uL SERVICES LYMPH x10^3 1.89 1.09 - 3.23 [facility] 10*3/uL SERVICES MONO x10^3 0.55 0.36 - 1.02 [facility] 10*3/uL SERVICES EOS x10^3 <0.03 (L) 0.06 - 0.53 [facility] 10*3/uL SERVICES BASO x10^3 <0.03 0.01 - 0.09 [facility] 10*3/uL SERVICES IVAN CELLS 2+ (A) (none) [facility] BANDS Increased (A) [facility] Specimen Blood - VENOUS Performing Organization Address [facility] Phone Number [facility] CLIA: [id number] [place] [address] [place] [address] PROTHROMBIN TIME / INR (09/27/2020 2:38 AM MACHINE CLOTHING REPLACER) PROTIME PATIENT 20.9 (H) 10.1 - 12.6 [facility] Seconds SERVICES INR 1.8Comment: Normal [facility] INR <1.1; Warfarin SERVICES Therapeutic range 2.0 to 3.0 or 2.5 to 3.5, depending upon the indications. Specimen Blood - VENOUS Performing Organization Address [facility] Phone Number [facility] CLIA: [id number] [place] [address] [place] [address] LIPASE (09/27/2020 1:59 AM MACHINE CLOTHING REPLACER) Pathologist Sig nature LIPASE 317 (H) 0 - 220 U/L [facility] SERVICES Specimen Blood - ARM, RIGHT Performing Organization Address [facility] Phone Number [facility] CLIA: [id number] [place] [address] [place] [address] HEPATIC FUNCTION PANEL ([id number]) (ALB,T.PRO,BILI T,BU/BC,ALT,AST,ALK PHOS) (09/27/2020 1:59 AM MACHINE CLOTHING REPLACER) TOTAL BILI 2.8 (H) 0.1 - 1.1 mg/dL [facility] BILI UNCON 2.2 (H) 0.1 - 1.1 mg/dL [facility] BILI CONJ 0.0 0.0 - 0.3 mg/dL [facility] SERVICES T PROTEIN 5.8 (L) 6.3 - 8.2 g/dL [facility] ALBUMIN 2.6 (L) 3.5 - 5.0 g/dL [facility] ALK PHOS 900 (H)Comment: 34 - 122 U/L [facility] Slight hemolysis SERVICES ALTv 640 (H) 5 - 50 U/L [facility] AST(SGOT) Comment: Slight [facility] hemolysis SERVICES Specimen Blood - ARM, RIGHT Performing Organization Address [facility] Phone Number [facility] CLIA: [id number] [place] [address] [place] [address] EXTRA TUBE LAV (09/27/2020 1:58 AM MACHINE CLOTHING REPLACER) Specimen Blood Performing Organization Address [facility] Phone Number [facility] CLIA: [id number] [place] [address] [place] [address] HEPATIC FUNCTION PANEL ([id number]) (ALB,T.PRO,BILI T,BU/BC,ALT,AST,ALK PHOS) (09/27/2020 1:58 AM MACHINE CLOTHING REPLACER) Pathologist Sig nature TOTAL BILI 3.0 (H) 0.1 - 1.1 mg/dL [facility] BILI UNCON 2.3 (H) 0.1 - 1.1 mg/dL [facility] BILI CONJ 0.0 0.0 - 0.3 mg/dL [facility] SERVICES T PROTEIN 6.3 6.3 - 8.2 g/dL [facility] SERVICES ALBUMIN 2.9 (L) 3.5 - 5.0 g/dL [facility] SERVICES ALK PHOS 1,016 (H) 34 - 122 U/L [facility] SERVICES ALTv 704 (H) 5 - 50 U/L [facility] SERVICES AST(SGOT) 1,413 (H) 13 - 40 U/L [facility] SERVICES Specimen Blood - LINE, VENOUS Performing Organization Address [facility] Phone Number [facility] CLIA: [id number] [place] [address] [place] [address] CBC WITH DIFF (09/27/2020 1:58 AM MACHINE CLOTHING REPLACER) WBC 8.91 4.20 - 10.70 [facility] 10*3/L SERVICES RBC 3.72 (L) 4.26 - 5.52 [facility] 10*6/L SERVICES HGB 10.7 (L) 12.2 - 16.4 [facility] g/dL SERVICES HCT 32.3 (L) 38.4 - 49.3 % [facility] SERVICES MCV 86.8 81.7 - 95.6 fL [facility] SERVICES MCH 28.8 26.1 - 32.7 pg [facility] SERVICES MCHC 33.1 31.2 - 35.0 [facility] g/dL SERVICES RDW-SD 49.1 38.5 - 51.6 fL [facility] RDW-CV 15.7 (H) 12.1 - 15.4 % [facility] PLT 183 150 - 328 [facility] 10*3/L SERVICES MPV 11.8 9.8 - 13.0 fL [facility] NRBC/100 WBC 0.0 0.0 - 10.0 [facility] /100 WBCs SERVICES NRBC x10^3 <0.01 10*3/L [facility] SERVICES GRAN MAT (NEUT) % 70.3 % [facility] SERVICES IMM GRAN % 1.50 % [facility] LYMPH % 22.7 % [facility] MONO % 5.4 % [facility] SERVICES EOS % 0.0 % [facility] SERVICES BASO % 0.1 % [facility] SERVICES GRAN MAT 6.27 1.99 - 6.95 [facility] x10^3(ANC) 10*3/uL SERVICES IMM GRAN x10^3 0.13 (H) 0.00 - 0.06 [facility] 10*3/uL SERVICES LYMPH x10^3 2.02 1.09 - 3.23 [facility] 10*3/uL SERVICES MONO x10^3 0.48 0.36 - 1.02 [facility] 10*3/uL SERVICES EOS x10^3 <0.03 (L) 0.06 - 0.53 [facility] 10*3/uL SERVICES BASO x10^3 <0.03 0.01 - 0.09 [facility] 10*3/uL SERVICES IVAN CELLS 2+ (A) (none) [facility] BANDS Increased (A) [facility] Specimen Blood - LINE, VENOUS Performing Organization Address City/State/Zipcode Phone Number [facility] CLIA: [id number] [place] [address] [place] [address] BASIC METABOLIC PANEL (NA, K, CL, CO2, GLUCOSE, BUN, CREATININE, CA) (09/27/2020 1:58 AM MACHINE CLOTHING REPLACER) NA 142 135 - 145 [facility] mmol/L SERVICES K 5.5 (H) 3.5 - 5.0 [facility] mmol/L SERVICES CL 113 (H) 98 - 108 mmol/L [facility] SERVICES CO2 TOTAL 22 (L) 23 - 31 mmol/L [facility] SERVICES AGAP 7 2 - 16 [facility] SERVICES BUN 96 (H) 7 - 23 mg/dL [facility] SERVICES GLUCOSE 136 (H) 70 - 110 mg/dL [facility] CREATININE 1.29 (H) 0.60 - 1.25 [facility] mg/dL SERVICES CALCIUM 7.1 (L) 8.6 - 10.6 [facility] mg/dL SERVICES eGFR Calculation 63.0 mL/min/1.73m2 [facility] (Non- SERVICES Croatian) eGFR Calculation 76.4 mL/min/1.73m2 [facility] () SERVICES Specimen Blood - LINE, VENOUS Narrative Performed At Association of Glomerular Filtration Rate (GFR) and St aging [facility] SERVICES of Kidney Disease* + + [...] in imaging tests) . Performing Organization Address City/[facility]/Zipcode Phone Number [facility] CLIA: [id number] [place] [address] [place] [address] Lactic Acid Whole Blood (09/27/2020 1:58 AM MACHINE CLOTHING REPLACER) [facility] LACTIC ACID 0.81 mmol/L [facility] SERVICES Specimen Blood - LINE, VENOUS Performing Organization Address [facility] Phone Number [facility] CLIA: [id number] [place] [address] [place] [address] POCT GLUCOSE (AUTOMATED) (09/27/2020 1:57 AM MACHINE CLOTHING REPLACER) Pathologist Sig nature POCT GLU 117 (H) 70 - 110 mg/dL [facility] Specimen Blood Performing Organization Address City/[facility]/Zipcode Phone Number [facility] CLIA: [id number] [place] [address] [place] [address] URINE DRUG (LCMSMS) - OPIATES PANEL (09/27/2020 12:53 AM MACHINE CLOTHING REPLACER) Pathologist Sig nature Morphine-LCMS 628 (H) <50 ng/mL [facility] Morphine-Creatinine 3,877 ng/mg [facility] Normalized SERVICES Morphine-Interpretati Positive (A) Negative [facility] on SERVICES Codeine-Interpretatio Negative Negative [facility] n [facility] Hydrocodon-Interpreta Negative Negative [facility] tion SERVICES Hydromorph-Interpreta Negative Negative [facility] t[facility] SERVICES Norhydrocod-Interpret Negative Negative [facility] ation SERVICES Oxycodone-Interpretat Negative Negative [facility] SERVICES Oxymorph-Interpretati Negative Negative [facility] Noroxycod-Interpretat Negative Negative [facility] ion SERVICES 6-TRINO(Heroin)-Interpr Negative Negative [facility] etation SERVICES CREAT U 16.2 mg/dL [facility] Specimen Urine - URINE, CLEAN CATCH Narrative Performed At Test developed and characteristics determined by [facility] Laboratory Services. Performing Organization Address City/[facility]/Zipcode Phone Number [facility] CLIA: [id number] [place] [address] [place] [address] URINE DRUG (LCMSMS) - SYNTHETIC OPIATES PANEL (09/27/2020 12:53 AM MACHINE CLOTHING REPLACER) Pathologist Sig nature Tramadol-Interpretati Negative Negative [facility] Propoxyph-Interpretat Negative Negative [facility] Normeperid-Interpreta Negative Negative [facility] t[facility] Meperidine-Interpreta Negative Negative [facility] t[facility] Methadone-Interpretat Negative Negative [facility] EDDP-Interpretation Negative Negative [facility] CREAT U 16.2 mg/dL [facility] Norfentan-LCMS 12 (H) <5 ng/mL [facility] Norfentan-Creatinine 74 ng/mg [facility] Normalized SERVICES Norfentan-Interpretat Positive (A) Negative [facility] ion [facility] Fentanyl-LCMS 6 (H) <5 ng/mL [facility] Fentanyl-Creatinine 37 ng/mg [facility] Normalized SERVICES Fentanyl-Interpretati Positive (A) Negative [facility] Buprenorph-Interpreta Negative Negative [facility] Norbupren-Interpretat Negative Negative [facility] Carisopro-Interpretat Negative Negative [facility] Meprobamat-Interpreta Negative Negative [facility] tion SERVICES Specimen Urine - URINE, CLEAN CATCH Narrative Performed At Test developed and characteristics determined by [facility] Laboratory Services. Performing Organization Address City/[facility] Phone Number [facility] CLIA: [id number] [place] [address] [place] [address] GALV/CLC ONLY - URINE DRUG (IMMUNOASSAY) - COMPREHENSIVE DRUG SCREEN (09/27/2020 12:53 AM MACHINE CLOTHING REPLACER) AMPHET Negative Negative [facility] KAIT U Negative Negative [facility] BENZO U Negative Negative [facility] Cocaine Metabolite Negative Negative [facility] METHADONE Negative Negative [facility] OPIATES Presumptive Negative [facility] Positive (A) SERVICES PCP Negative Negative [facility] THC Negative Negative [facility] Specimen Urine - URINE, CLEAN CATCH Narrative Performed At Urine Drug Cutoff Ranges [facility] Cocaine: 150 ng/mL Benzodiazepines: 200 ng/mL Methadone: 300 ng/mL Amphetamine: 1,000 ng/mL Opiates: 300 ng/mL Cannabinoids: 50 ng/mL Phencyclidine: 25 ng/mL Barbiturates: 200 ng/mL The results are to be used only for medical (i.e., treatment) purposes. Unconfirmed screening results mus t not be used for non-medical purposes (e.g., employment adina ting, legal testing). Performing Organization Address City/State/Zipcode Phone Number [facility] CLIA: [id number] [place] [address] [place] [address] PROTHROMBIN TIME / INR (09/27/2020 12:51 AM MACHINE CLOTHING REPLACER) PROTIME PATIENT [facility] Comment: SERVICES Sample may be diluted per Dr Dafne Sweeney. Test credited and reordered by This is a corrected result. Previous result was 37.7 Seconds on 09/27/2020 at 0107 MACHINE CLOTHING REPLACER INR [facility] Comment: SERVICES Normal INR <1.1; Warfarin Th erapeutic range 2.0 to 3.0 or 2.5 to 3.5, depending upon the indications. Questionable results per , test credited This is a corrected result. Previous r esult was 3.2 on 09/27/2020 at 0107 [facility] Specimen Blood - LINE, VENOUS Performing Organization Address City/[facility]/Zipcode Phone Number [facility] CLIA: [id number] [place] [address] [place] [address] LIPASE (09/27/2020 12:51 AM MACHINE CLOTHING REPLACER) Pathologist Sig nature LIPASE 76 0 - 220 U/L [facility] Specimen Blood - LINE, VENOUS Performing Organization Address City/[facility]/Zipcode Phone Number [facility] CLIA: [id number] [place] [address] [place] [address] HEPATIC FUNCTION PANEL ([id number]) (ALB,T.PRO,BILI T,BU/BC,ALT,AST,ALK PHOS) (09/27/2020 12:51 AM MACHINE CLOTHING REPLACER) Pathologist Sig nature TOTAL BILI [facility] Comment: SERVICES Possible contaminated specimen-Dr Castañeda to reorder This is a corrected result. Previous result was 1.1 mg/dL on 09/27/2020 at 0124 MACHINE CLOTHING REPLACER BILI UNCON [facility] Comment: SERVICES Possible contaminated specimen-Dr Castañeda to reorder This is a corrected result. Previous result was 1.0 mg/dL on 09/27/2020 at 0124 MACHINE CLOTHING REPLACER BILI CONJ [facility] Comment: SERVICES Possible contaminated specimen-Dr Castañeda to reorder This is a corrected result. Previous result was 0.0 mg/dL on 09/27/2020 at 0124 MACHINE CLOTHING REPLACER T PROTEIN [facility] Comment: SERVICES Possible contaminated specimen-Dr Castañeda to reorder This is a corrected result. Previous result was 2.3 g/dL on 09/27/2020 at 0124 MACHINE CLOTHING REPLACER ALBUMIN [facility] Comment: SERVICES Possible contaminated specimen-Dr Castañeda to reorder This is a corrected result. Previous result was 1.0 g/dL on 09/27/2020 at 0124 MACHINE CLOTHING REPLACER ALK PHOS [facility] Comment: SERVICES Possible contaminated specimen-Dr Castañeda to reorder This is a corrected result. Previous result was 307 U/L on 09/27/2020 at 0124 MACHINE CLOTHING REPLACER ALTv [facility] Comment: SERVICES Possible contaminated specimen-Dr Castañeda to reorder This is a corrected result. Previous result was 247 U/L on 09/27/2020 at 0124 MACHINE CLOTHING REPLACER AST(SGOT) [facility] Comment: SERVICES Possible contaminated specimen-Dr Castañeda to reorder This is a corrected result. Previous result was 487 U/L on 09/27/2020 at 0124 MACHINE CLOTHING REPLACER Specimen Blood - LINE, VENOUS Performing Organization Address City/[facility]/Zipcode Phone Number [facility] CLIA: [id number] [place] [address] [place] [address] HAV ANTIBODY (IGG AND IGM) (09/27/2020 12:24 AM MACHINE CLOTHING REPLACER) Pathologist Sig [facility] HAV Total Negative [facility] HAVT Semi-Quantitative 2.11 [facility] Specimen Blood - LINE, VENOUS Performing Organization Address City/[facility] Phone Number [facility] CLIA: [id number] [place] [address] [place] [address] HEPATITIS B SURFACE ANTIGEN (09/27/2020 12:24 AM MACHINE CLOTHING REPLACER) Pathologist [facility] HBsAg Negative Negative [facility] HBsAg 0.49 [facility] Semi-Quantitative SERVICES Specimen Blood - LINE, VENOUS Performing Organization Address City/[facility] Phone Number [facility] CLIA: [id number] [place] [address] [place] [address] CREATININE (09/27/2020 12:24 AM MACHINE CLOTHING REPLACER) Pathologist Sig nature CREATININE 1.20 0.60 - 1.25 [facility] mg/dL SERVICES eGFR Calculation 68.5 mL/min/1.73m2 [facility] (Non-) SERVICES eGFR Calculation 83.0 mL/min/1.73m2 [facility] () SERVICES Specimen Blood - LINE, VENOUS Narrative Performed At Association of Glomerular Filtration Rate (GFR) and St aging [facility] of Kidney Disease* + + [...] in imaging tests) . Performing Organization Address [facility] Phone Number [facility] CLIA: [id number] [place] [address] [place] [address] FREE T4 (09/27/2020 12:23 AM MACHINE CLOTHING REPLACER) Pathologist Sig nature FREE T4 1.29 0.78 - 2.20 ng/dL: [facility] ES Specimen Blood - LINE, VENOUS Performing Organization Address [facility] Phone Number [facility] CLIA: [id number] [place] [address] [place] [address] IMMUNOGLOBULIN G (09/27/2020 12:23 AM MACHINE CLOTHING REPLACER) Pathologist Sig nature IgG 741 636-1,600 mg/dL [facility] Specimen Blood - LINE, VENOUS Performing Organization Address [facility] Phone Number [facility] CLIA: [id number] [place] [address] [phone] [address] [facility] ANTI-NUCLEAR ANTIBODY SCREEN (09/27/2020 12:23 AM MACHINE CLOTHING REPLACER) Pathologist Sig nature LOYD Negative Negative [facility] Specimen Blood - LINE, VENOUS Narrative Performed At Negative - No Anti-Nuclear Antibodies de tected by IFA. [facility] Positive - LOYD IFA screen performed with a 1:80 diluti on in adults and a 1:40 dilution in pediatrics. Any LOYD "Pos itive" will have titer performed and reported separately. Performing Organization Address City/[facility] Phone Number [facility] CLIA: [id number] [place] [address] [place] [address] HBC ANTIBODY (IGM & IGG) (09/27/2020 12:23 AM MACHINE CLOTHING REPLACER) Pathologist Sig nature HBC Reactive [facility] HBC Semi-Quantitative 0.27 [facility] Specimen Blood - LINE, VENOUS Performing Organization Address [facility] Phone Number [facility] CLIA: [id number] [place] [address] [place] [address] HEPATITIS B SURFACE ANTIBODY (09/27/2020 12:23 AM MACHINE CLOTHING REPLACER) Pathologist Sig nature HBsAB Negative [facility] HBsAb 3.80 mIU/mL [facility] Semi-Quantitative SERVICES Specimen Blood - LINE, VENOUS Narrative Performed At Interpretation: Hepatitis B Surface An tibody [facility] Negative - Patient is considered to be not immu ne to infection with HBV. Positive - Anti-HBs detected at greater than or equal to 12 mIU/mL. Patient is considered to be immune to infection with HBV. Performing Organization Address [facility] Phone Number [facility] CLIA: [id number] [place] [address] [place] [address] [place] BARIUM SWALLOW ESOPHAGUS (09/26/2020 9:24 PM MACHINE CLOTHING REPLACER) Specimen Impressions Performed At PACS/VR/DOSE 1. No evidence to suggest esophageal p erforation or contrast extravasation. 2. Bird's beak like narrowing of the d istal esophagus near the GE junction, and proximal dilatation, is co nsistent with achalasia. Nonspecific internal filling defects sug gest prior ingested material. 3. Findings are similar to the prior s tudy from August 29, 2020. Preliminary Report Dictated by Resident: Sienna Mcbride MD., have reviewe d this study and agree with the above report. Narrative Performed At This result has an attachment that is no t available. PACS/VR/DOSE EXAM: BARIUM SWALLOW HISTORY: Possible esophageal perf COMPARISON: CTA 09/26/2020 TECHNIQUE AND FINDINGS: Initial spindraw operator images demonstrated moderate esophageal distention, with radiopaque intraluminal contents. The patient was administered 130 cc of Omnipaque by [facility]. Fluoroscopy and still images showed moderate distention of the mid to distal esophagus measuring up to 4.9 cm, with smooth tapering of the di stal esophagus/GE junction. No contrast extravasation to suggest esophag eal perforation. Procedure Note [facility], Radiant Results Inft User - 2019 11:44 PM MACHINE CLOTHING REPLACER EXAM: BARIUM SWALLOW HISTORY: Possible esophageal perf COMPARISON: CTA 09/26/2020 TECHNIQUE AND FINDINGS: Initial spindraw operator images demonstrated modera te esophageal distention, with radiopaque intraluminal contents. The patient was administered 130 cc of O mnipaque by mouth. Fluoroscopy and still images showed moderate distention of the mid to distal esophagus measuring up to 4.9 cm, with smooth tape ring of the distal esophagus/GE junction. No contrast extravasation to s uggest esophageal perforation. IMPRESSION 1. No evidence to suggest esophageal pe rforation or contrast extravasation. 2. Bird's beak like narrowing of the di stal esophagus near the GE junction, and proximal dilatation, is co nsistent with achalasia. Nonspecific internal filling defects sug gest prior ingested material. 3. Findings are similar to the prior st udy from August 29, 2020. Preliminary Report Dictated by Resident: Sienna Mcbride MD., have reviewed this study and agree with the above report. Performing Organization Address City/State/Zipcode Phone Number PACS/VR/DOSE POCT GLUCOSE (AUTOMATED) (09/26/2020 5:51 PM MACHINE CLOTHING REPLACER) Pathologist Sig nature POCT GLU 81 70 - 110 mg/dL [facility] Specimen Blood Performing Organization Address City/[facility]/Zipcode Phone Number [facility] CLIA: [id number] [place] [address] [place] [address] ABDOMEN LIMITED (09/26/2020 2:47 PM MACHINE CLOTHING REPLACER) Specimen Impressions Performed At PACS/VR/DOSE Right kidney is echogenic concerning for underlying ch ronic medical renal disease. Otherwise, unremarkable right upper quadrant ultrasoun d. Narrative Performed At This result has an attachment that is no t available. RIGHT UPPER QUADRANT ABDOMINAL SONOGRAM PACS/VR/DOSE TECHNIQUE: Grayscale and limited color Doppler images of the right upper quadrant of the abdomen were obtained. INDICATION: 09/26/2020 COMPARISON: FINDINGS: Liver does not appear enlarged. No focal hepatic lesio ns identified to the extent visualized. Liver demonstrates normal hepatic e chotexture and echogenicity. Patent main portal vein with normal hepa topedal flow. Main portal vein measures 0.6 cm in AP diameter at abisai he patis. No cholelithiasis. No pericholecystic free fluid or in flammatory change. Normal gallbladder wall thickness measuring 2 mm in th ickness. Negative sonographic Calle sign. The common bile duct measures 0.4 cm in AP diameter at abisai hepatis. Visualized portions of the right kidney appear very ec hogenic. Visualized portions of the pancreatic body and proxima l tail appear unremarkable. Proximal abdominal aorta measures 1.7 cm in AP diamete r, normal. No abnormal dilatation of the aorta within the mid or dis kevin portions. Procedure Note [facility], Radiant Results Inft User - 2019 2:58 PM MACHINE CLOTHING REPLACER RIGHT UPPER QUADRANT ABDOMINAL SONOGRAM TECHNIQUE: Grayscale and limited color D oppler images of the right upper quadrant of the abdomen were obtained. INDICATION: 09/26/2020 COMPARISON: FINDINGS: Liver does not appear enlarged. No focal hepatic lesions identified to the extent visualized. Liver demonstrates no rmal hepatic echotexture and echogenicity. Patent main portal vein wi th normal hepatopedal flow. Main portal vein measures 0.6 cm in AP diamet er at abisai hepatis. No cholelithiasis. No pericholecystic fr ee fluid or inflammatory change. Normal gallbladder wall thickness measur ing 2 mm in thickness. Negative sonographic Calle sign. The common bile duct measures 0.4 cm in AP diameter at abisai hepatis. Visualized portions of the right kidney appear very echogenic. Visualized portions of the pancreatic heron dy and proximal tail appear unremarkable. Proximal abdominal aorta measures 1.7 cm in AP diameter, normal. No abnormal dilatation of the aorta within the mid or distal portions. IMPRESSION Right kidney is echogenic concerning for underlying chronic medical renal disease. Otherwise, unremarkable right upper quad rant ultrasound. Performing Organization Address City/State/Zipcode Phone Number PACS/VR/DOSE CT ABDOMEN PELVIS WO CONTRAST (09/26/2020 1:43 PM MACHINE CLOTHING REPLACER) Specimen Impressions Performed At 1. Awheh-dy-ulankhqv amount of gas surrounding the d istal esophagus PACS/VR/DOSE and GE junction. Findings are concerning for esophageal perfo ration gas tracking superiorly mediastinum. Correlate clinic ally. Recommend surgical consultation. 2. Distal esophagus and measures moder ately distended with hyperattenuating material. 3. Cachexia. 4. Additional findings as above. Narrative Performed At This result has an attachment that is no t available. CT abdomen and pelvis without contrast PACS/VR/DOSE REASON FOR STUDY: Abnormal findings of blood chemistry COMPARISON: None available. TECHNIQUE: Unenhanced multidetector axial CT images fr om lung bases through proximal thighs. As requested, no IV contrast was used . Coronal and sagittal MPR images also generated. INTRAVENOUS CONTRAST ADMINISTRATION: None. DOSE REPORT (Total DLP mGy*cm): 123. FINDINGS: Lower chest: Mild subsegmental atelectasis. Otherwise, lungs are clear. Hypoattenuating blood pool within the left ventricle s uggests anemia. Small to moderate amount of free gas surrounding the d istal esophagus and gastroesophageal junction. Gas appears to track superi dolly into the mediastinum which is out of ohrwk-ah-vfoo. Moderate amount of hypoattenuating material is seen wi thin moderately distended still esophagus. ABDOMEN AND PELVIS Liver: No focal hepatic lesion identified within limit s of technique. Biliary Tract/GB: Moderately distended gallbladder wit hout radiopaque lithiasis. Spleen: No splenomegaly. Pancreas: Pancreas is not distinguished from the adjac ent retroperitoneal structures due to scarcity of intra-abdominal fat (cac hexia) and lack of intravenous contrast. Adrenals: Not well distinguished from the adjacent ret roperitoneal structures. Kidneys: No discernible hydronephrosis or nephrolithia sis. Very limited exam. Bowel: Limited evaluation of bowel due to cachexia and scarcity of intra-abdominal fat. No abnormal bowel dilatation. Moderate amount of gas surrounding the GE junction or distal esophagus with pneumomediastinum. Peritoneum: No discernible free fluid. Free gas surrou nding the distal esophagus concerning for esophageal perforation as abo ve. Vasculature: Very limited exam due to lack of intraven ous contrast. Lymph Nodes: No discernible bulky lympha denopathy. Pelvic Organs: Urinary bladder is normal for the degre e of distention. Abdominal/Pelvic Wall: Cachexia. BONES: No aggressive or suspicious osseous abnormality . A few tiny subcentimeter intra-articular calcific densities are s een along the medial right hip joint (2:114). Procedure Note [facility], Radiant Results Inft User - 2019 2:34 PM MACHINE CLOTHING REPLACER CT abdomen and pelvis without contrast REASON FOR STUDY: Abnormal findings of b lood chemistry COMPARISON: None available. TECHNIQUE: Unenhanced multidetector axia l CT images from lung bases through proximal thighs. As requested, no IV con trast was used. Coronal and sagittal MPR images also generated. INTRAVENOUS CONTRAST ADMINISTRATION: Non e. DOSE REPORT (Total DLP mGy*cm): 123. FINDINGS: Lower chest: Mild subsegmental atelectas is. Otherwise, lungs are clear. Hypoattenuating blood pool within the le ft ventricle suggests anemia. Small to moderate amount of free gas gin rounding the distal esophagus and gastroesophageal junction. Gas appears t o track superiorly into the mediastinum which is out of qxzss-sr-zsy w. Moderate amount of hypoattenuating mater ial is seen within moderately distended still esophagus. ABDOMEN AND PELVIS Liver: No focal hepatic lesion identifie d within limits of technique. Biliary Tract/GB: Moderately distended g allbladder without radiopaque lithiasis. Spleen: No splenomegaly. Pancreas: Pancreas is not distinguished from the adjacent retroperitoneal structures due to scarcity of intra-abdo marjorie fat (cachexia) and lack of intravenous contrast. Adrenals: Not well distinguished from th e adjacent retroperitoneal structures. Kidneys: No discernible hydronephrosis o r nephrolithiasis. Very limited exam. Bowel: Limited evaluation of bowel due t o cachexia and scarcity of intra-abdominal fat. No abnormal bowel d ilatation. Moderate amount of gas surrounding the G E junction or distal esophagus with pneumomediastinum. Peritoneum: No discernible free fluid. F ree gas surrounding the distal esophagus concerning for esophageal perf oration as above. Vasculature: Very limited exam due to la ck of intravenous contrast. Lymph Nodes: No discernible bulky lympha denopathy. Pelvic Organs: Urinary bladder is normal for the degree of distention. Abdominal/Pelvic Wall: Cachexia. BONES: No aggressive or suspicious osseo us abnormality. A few tiny subcentimeter intra-articular calcific d ensities are seen along the medial right hip joint (2:114). IMPRESSION 1. Llice-np-ftznyarg amount of gas surr ounding the distal esophagus and GE junction. Findings are concerning for es ophageal perforation gas tracking superiorly mediastinum. Correlate clinic ally. Recommend surgical consultation. 2. Distal esophagus and measures modera tely distended with hyperattenuating material. 3. Cachexia. 4. Additional findings as above. Performing Organization Address City/State/Zipcode Phone Number PACS/VR/DOSE HIV 1/2 AG-AB WITH REFLEX (09/26/2020 1:01 PM MACHINE CLOTHING REPLACER) Pathologist Sig nature HIV 1/2 Ag-Ab with Negative Negative [facility] Reflex HOSPITAL LABORATORY HIV Semi-quantitative 0.23 [facility] Specimen Blood - VENOUS Narrative Performed At Non-reactive for HIV-1 antigen and HIV-1/HIV-2 [facility] antibodies. No laboratory evidence of HIV infection. Repeat in 2-4 weeks if acute HIV infection is suspected. Performing Organization Address City/[facility]/Zipcode Phone Number [facility] CLIA: [id number] [place] [address] TROPONIN I (09/26/2020 1:01 PM MACHINE CLOTHING REPLACER) Pathologist Sig nature TROPONIN I 0.026 <=0.034 ng/mL [facility] Specimen Blood - VENOUS Narrative Performed At Equal or Less than 0.034 ng/ml---Normal [facility] Note: Cardiac troponin begins to [...] patient's use of biotin. Performing Organization Address [facility] Phone Number [facility] CLIA: [id number] [place] [address] LABORATORY [address] [facility] POCT GLUCOSE (AUTOMATED) (09/26/2020 12:06 PM MACHINE CLOTHING REPLACER) Pathologist Sig nature POCT GLU 130 (H) 70 - 110 mg/dL [facility] Specimen Blood Performing Organization Address [facility] Phone Number [facility] CLIA: [id number] [place] [address] LABORATORY [address] [facility] URINALYSIS (09/26/2020 11:25 AM MACHINE CLOTHING REPLACER) Pathologist Sig nature APPEARANCE Cloudy (A) Clear [facility] COLOR Shyla (A) Yellow [facility] PH 9.0 (A) 4.8 - 8.0 [facility] SP GRAVITY 1.016 1.003 - 1.030 [facility] GLU U QUAL Normal Normal [facility] BLOOD 2+ (A) Negative [facility] KETONES Negative Negative [facility] PROTEIN 100 mg/dL (A) Negative [facility] UROBILIN 2.0 mg/dL (A) Normal [facility] BILIRUBIN Negative Negative [facility] NITRITE Negative Negative [facility] LEUK ERICK 500/uL (A) Negative [facility] RBC/HPF >182 (H) 0 - 3 HPF [facility] WBC/HPF 176 (H) 0 - 5 HPF [facility] BACTERIA Few (A) Negative [facility] WBC CLUMPS 3 (H) <=1 HPF [facility] Specimen Urine - URINE, CLEAN CATCH Performing Organization Address [facility] Phone Number [facility] CLIA: [id number] [place] [address] LABORATORY [address] [facility] XR CHEST 1 VW (09/26/2020 11:20 AM MACHINE CLOTHING REPLACER) Specimen Narrative Performed At This result has an attachment that is no t available. EXAM: XR CHEST 1 VW PACS/VR/DOSE HISTORY: body aches, hypothermic COMPARISON: None. FINDINGS: The heart and great vessels are normal. The lungs are overinflated but clear. Procedure Note [facility], Radiant Results Inft User - 2019 11:28 AM MACHINE CLOTHING REPLACER EXAM: XR CHEST 1 VW HISTORY: body aches, hypothermic COMPARISON: None. FINDINGS: The heart and great vessels are normal. The lungs are overinflated but clear. Performing Organization Address City/[facility]/Zipcode Phone Number PACS/VR/DOSE Lactic Acid Whole Blood (09/26/2020 10:54 AM MACHINE CLOTHING REPLACER) Pathologist Sig nature LACTIC ACID 2.21 mmol/L [facility] Specimen Blood - VENOUS Performing Organization Address City/[facility]/Zipcode Phone Number [facility] CLIA: [id number] [place] [address] LAB ONLY COVID INTERPRETATION (09/26/2020 10:52 AM MACHINE CLOTHING REPLACER) COVID DMT Interpretation/Recommendations: [facility] LABO RATORY Interpretation SERVICES Molecular NAAT Tests for Active Infection with the MAHENDRA S-CoV-2 Virus: After positive test results in the past, most recently this patient has tested negative on one occasion for the SARS-CoV-2 virus that causes COVID-19 illness. At this time, the patient may be recovering or have already recovered f rom the infection, which is likely if any present symptoms are decreasing or have resolved. The patient should be considered infectious and able to transmit the virus within the first 10 days after symp john onset in suci-av-mbvefjix illness and within the first 20 days after symptom onset in critical illness and/or severe immunocompromise. Asymptomatic patients are considere d infectious for the first 1 0 days subsequent to the initial positive test result. If the patient continues to have persistent or worsening symptoms, a repeat NAAT test (PCR, Rapid ID Now, etc.) should be performed. Tests for IgM and/or IgG Antibodies to SARS-CoV-2 Viru s: Testing for IgM and IgG anti bodies 1-3 weeks after illness onset will indicate whether the patient has produced antibodies to the virus. At this time, it is not known if the production of antibodies - s pecifically IgG antibodies - indicates whether the patient is immune to future infections with the SARS-CoV-2 virus. Interpretation Result Comments: These interpretation comment s are based upon aggregate COVID-19 test results pooled from [facility]. They apply to the following tests offered at [facility] and assume the acceptable specimen type(s) were used: A. Tests for the Identification of SARS-CoV-2 RNA (Mol ecular NAAT Tests): - SARS-CoV-2 PCR assays including [place] Aptima, [place] Fusion, Sanders RealTime, and Evo.com Xpert Xpress. - SARS-CoV-2 Rapid ID NOW by the ID NOW as say. B. Tests for the Identification of SARS-CoV-2 Antibodi es: - Chemiluminesce nt immunoassays including Access SARS-CoV-2 IgM (DXI 600), Influitive Wlgx-SDAI-AiS-2 IgG (Vitros 5600 and Vitros 3600), and Sanders SARS-CoV-2 IgG (NETWORK SUPPORT TECHNICIAN I System). These interpretations are au topopulated into [facility] based on computerized algorithms matching an interpretation code to the patient's set of test results, and a clinical pathologist evaluates the comments for accuracy. However, thes e comments do not consider testing a patient may have had outside of the [facility] system. If results for COVID-19 infection continue to be negative in the context of a suspected viral respiratory illness, i t is possible the patient may have an infection with another respiratory virus. Influenza testing and a respiratory pathogen panel if clinically indicated may be beneficial i n this setting. If there con tinues to be a high degree of clinical suspicion for COVID-19 illness despite multiple negative tests on nasopharyngeal specimens, then it may be necessary to test the patien t for the SARS-CoV-2 virus u sing lower respiratory tract samples (such as sputum, bronchoalveolar lavage fluid (BAL), tracheal aspirate, etc.). COVID Results SARS-CoV-2 Rapid ID NOW (no units) [facility] Date Value SERVICES 09/26/2020 Not Detected 09/20/2020 Positive (A) 08/28/2020 Not Detected 08/23/2020 Not Detected Specimen Swab - NASOPHARYNGEAL SWAB Performing Organization Address City/State/Zipcode Phone Number [facility] LABORATORY SERVICES CLIA: [id number] [place] [address] [place] [address] COVID-19 (ID NOW RAPID TESTING) (09/26/2020 10:52 AM MACHINE CLOTHING REPLACER) [facility] SARS-CoV-2 Rapid ID Not Detected Not Detected [facility] Specimen Swab - NASOPHARYNGEAL SWAB Narrative Performed At [place] NOW COVID-19 Assay is an isothermal nucleic [facility] acid amplification test intended for the qualitative detection of nucleic acid from SARS-CoV-2 viral RNA in nasopharyngeal (SENIOR SHAREPOINT ARCHITECT) specimens. It is used under Emergency Use [...] testing if clinically indicated. Performing Organization Address [facility]/Zipcode Phone Number [facility] CLIA: [id number] [place] [address] [address] [facility] [address] ACTIVATED PARTIAL THRMPLAS LAURA (09/26/2020 10:51 AM MACHINE CLOTHING REPLACER) [facility] Sig nature APTT Patient 34 23 - 38 Seconds [facility] Specimen Blood - VENOUS Narrative Performed At The [facility] patient population mean normal value [facility] for aPTT is 30 seconds. Performing Organization Address [facility]/Zipcode Phone Number [facility] CLIA: [id number] [place] [address] PROTHROMBIN TIME / INR (09/26/2020 10:51 AM MACHINE CLOTHING REPLACER) [facility] PROTIME PATIENT 18.7 (H) 12.0 - 14.7 [facility] LABORATORY INR 1.6Comment: Normal [facility] INR <1.1; [facility] Therapeutic range LABORATORY 2.0 to 3.0 or 2.5 to 3.5, depending upon the indications. Specimen Blood - VENOUS Performing Organization Address City/[facility]/Zipcode Phone Number [facility] CLIA: [id number] [place] [address] CORTISOL AM (09/26/2020 10:49 AM MACHINE CLOTHING REPLACER) Pathologist Sig nature JULIO CESAR AM 61.1 (H) 4.5 - 23.0 ug/dL [facility] LABORATORY SERVICES Specimen Blood Narrative Performed At Biotin has been reported to cause a positive bias, int erpret [facility] LABORATORY SERVICES results relative to patient's use of biotin. Performing Organization Address City/[facility] Phone Number [facility]ORATORY SERVICES CLIA: [id number] [place] [address] [place] [address] BLOOD CULTURE SCREEN (09/26/2020 10:49 AM MACHINE CLOTHING REPLACER) Blood No organisms isolated No growth [facility] Culture-Aerobic Comment: HOSPITAL Previous preliminary verifie d result was Culture In Progress on 09/26/2020 at 1501 MACHINE CLOTHING REPLACER LABORATORY Previous preliminary verifie d result was No growth at 24 hours on 09/27/2020 at 1201 MACHINE CLOTHING REPLACER Previous preliminary verifie d result was No growth at 48 hours on 09/28/2020 at 1201 MACHINE CLOTHING REPLACER Previous preliminary verifie d result was No growth at 72 hours on 09/29/2020 at 1201 MACHINE CLOTHING REPLACER Specimen Blood - VENOUS Performing Organization Address [facility] Phone Number [facility] CLIA: [id number] [place] [address] CREATINE KINASE (09/26/2020 10:49 AM MACHINE CLOTHING REPLACER) Pathologist Sig nature CK 678 (H) 33 - 194 U/L [facility] Specimen Blood - VENOUS Performing Organization Address [facility]/Zipcode Phone Number [facility] CLIA: [id number] [place] [address] COMP. METABOLIC PANEL (79119) (09/26/2020 10:49 AM MACHINE CLOTHING REPLACER) NA 143 135 - 145 [facility] mmol/L [facility] LABORATORY K 6.1 (HH) 3.5 - 5.0 [facility] mmol/L HOSPITAL LABORATORY CL 105 98 - 108 mmol/L [facility] CO2 TOTAL 30 23 - 31 mmol/L [facility] AGAP 8 2 - 16 [facility] BUN 101 (H) 7 - 23 mg/dL [facility] GLUCOSE 48 (LL) 70 - 110 mg/dL [facility] CREATININE 1.42 (H) 0.60 - 1.25 [facility] mg/dL [facility] LABORATORY TOTAL BILI 4.7 (H) 0.1 - 1.1 mg/dL [facility] CALCIUM 8.7 8.6 - 10.6 [facility] mg/dL [facility] LABORAT[facility] T PROTEIN 8.3 (H) 6.3 - 8.2 g/dL [facility] ALBUMIN 4.2 3.5 - 5.0 g/dL [facility] ALK PHOS 1,561 (H) 34 - 122 U/L [facility] ALTv 968 (H) 5 - 50 U/L [facility] AST(SGOT) 1,750 (H) 13 - 40 U/L [facility] eGFR Calculation 56.4 mL/min/1.73m2 [facility] (Non[facility] LABORATORY Croatian) eGFR Calculation 68.4 mL/min/1.73m2 [facility] () [facility] LABORATORY Specimen Blood - VENOUS Narrative Performed At Association of Glomerular Filtration Rate (GFR) [facility] LABORATORY and Staging of Kidney Disease* [...] tests). Performing Organization Address City/State/Zipcode Phone Number [facility] CLIA: [id number] [place] [address] CBC WITH DIFF (09/26/2020 10:49 AM MACHINE CLOTHING REPLACER) Pathologist Sig nature WBC 10.59 4.20 - 10.70 [facility] 10*3/L [facility] LABORATORY RBC 5.37 4.26 - 5.52 [facility] 10*6/L [facility] LABOR[facility]ORY HGB 15.3 12.2 - 16.4 [facility] g/dL [facility] LABORAT[facility] HCT 46.3 38.4 - 49.3 % [facility] MCV 86.2 81.7 - 95.6 fL [facility] MCH 28.5 26.1 - 32.7 pg [facility] MCHC 33.0 31.2 - 35.0 [facility] g/dL [facility] LABOR[facility]ORY RDW-SD 47.4 38.5 - 51.6 fL [facility] RDW-CV 15.2 12.1 - 15.4 % [facility] PLT 288 150 - 328 [facility] 10*3/L [facility] LABORATORY MPV 11.4 9.8 - 13.0 fL [facility] NRBC/100 WBC 0.0 0.0 - 10.0 /100 [facility] WBCs [facility] LABORATORY NRBC x10^3 <0.01 10*3/L [facility] GRAN MAT (NEUT) % 60.3 % [facility] IMM GRAN % 2.50 % [facility] LYMPH % 31.5 % [facility] MONO % 5.2 % [facility] EOS % 0.0 % [facility] BASO % 0.5 % [facility] GRAN MAT x10^3(ANC) 6.39 1.99 - 6.95 [facility] 10*3/uL [facility] LABORATORY IMM GRAN x10^3 0.26 (H) 0.00 - 0.06 [facility] 10*3/uL HOSPITAL LABORATORY LYMPH x10^3 3.34 (H) 1.09 - 3.23 [facility] 10*3/uL [facility] LABORATORY MONO x10^3 0.55 0.36 - 1.02 [facility] 10*3/uL [facility] LABORATORY EOS x10^3 <0.03 (L) 0.06 - 0.53 [facility] 10*3/uL [facility] LABORATORY BASO x10^3 0.05 0.01 - 0.[address] LABORATORY Specimen Blood - VENOUS Performing Organization Address City/[facility] Phone Number [facility] CLIA: [id number] [place] [address] POCT GLUCOSE (AUTOMATED) (09/26/2020 10:28 AM MACHINE CLOTHING REPLACER) [facility] POCT GLU 59 (L) 70 - 110 mg/dL [facility] Specimen Blood Performing Organization Address [facility] Phone Number [facility] CLIA: [id number] [place] [address] documented in this encounter Visit Diagnoses Diagnosis Achalasia - Primary Achalasia and cardiospasm Abdominal pain Abdominal pain, unspecified site Hypoglycemia Hypoglycemia, unspecified Hypothermia, initial encounter COVID-19 Elevated LFTs Other abnormal blood chemistry Hypokalemia Hypopotassemia documented in this encounter Administered Medications Medication Order MAR Action Action Date Dose Rate Site D5W 0.45% NaCl (1/2NS) IV New Bag 10/01/2020 10:46 PM MACHINE CLOTHING REPLACER 1,000 mL 150 mL/hr infusion 1,000 mL at 150 mL/hr, 1,000 mL, IV Infusion, CONTINUOUS, Starting 09/28/20 at 1715, Until Discontinued, Routine New Bag 10/01/2020 1:02 AM MACHINE CLOTHING REPLACER 1,000 mL 150 mL/hr New Bag 09/30/2020 2:33 AM MACHINE CLOTHING REPLACER 1,000 mL 150 mL/hr dextrose 50 % in water (D50W) injection 25 mL 25 mL, Slow IV Push, PRN - SEE INSTRUCTI ONS, Starting 09/28/20 at 0157, Until Discontinued, Routine, Blood Glucose <= 60 glucagon (GLUCAGEN DIAGNOSTIC KIT) injec tion 1 mg 1 mg, Intramuscular, PRN, Starting Sun 1 11/29/19 at 0157, Until Discontinued, ROBERTO, Blood Glucose < or = 70 mg/dL and patient is unable to swallow or has mental changes. lidocaine (LIDODERM) 5 % (700 mg/patch) Given 10/02/2020 9:45 A M MACHINE CLOTHING REPLACER 1 Patch patch 1 Patch 1 Patch, Topical, Administer over 12 Hours, DAILY, First dose on Tue09/30/20 at 0900, Until Discontinued, Routine Applied 10/01/2020 4:14 PM MACHINE CLOTHING REPLACER 1 Patch Given 09/30/2020 9:52 AM MACHINE CLOTHING REPLACER 1 Patch ondansetron (ZOFRAN (PF)) injection 4 mg Given 10/02/2020 3:20 AM MACHINE CLOTHING REPLACER 4 mg 4 mg, Slow IV Push, Q6HPRN, Starting Tue09/26/20 at 1904, Until Discontinued, Routine, Nausea and Vomiting (N/V) Given 09/30/2020 2:31 AM MACHINE CLOTHING REPLACER 4 mg Given 09/29/2020 8:32 PM MACHINE CLOTHING REPLACER 4 mg valproate (DEPACON) 750 mg in D5W piggyb ack Given 10/02/2020 9:44 AM MACHINE CLOTHING REPLACER 750 mg 750 mg, IV Piggyback, DAILY, First dose on Tue09/27/20 at 0900, Until Discontinued, 100 mL Given 10/01/2020 9:26 AM MACHINE CLOTHING REPLACER 750 mg Given 09/30/2020 9:44 AM MACHINE CLOTHING REPLACER 750 mg Medication Order MAR Action Action Date Dose Rate Site acetaminophen (TYLENOL) tablet Given 09/29/2020 8:32 PM MACHINE CLOTHING REPLACER 325 mg 325 mg 325 mg, Oral, Q6HPRN, Starting Tue09/28/20 at 1834, Until Tue09/30/20 at 2203, Routine, Pain (scale 1-3) acetaminophen-codeine (TYLENOL #2) 300-15 Given 2019 2:31 AM MACHINE CLOTHING REPLACER 1 tablet mg tablet 1 tablet 1 tablet, Oral, ONCE, 1 dose, Tue09/30/20 at 0115, Routine albuterol (PROVENTIL) 2.5 mg /3 mL (0.083 %) Given 02/2020 1:27 PM MACHINE CLOTHING REPLACER 2.5 mg nebulizer solution 2.5 mg 2.5 mg, Inhalation, Q4H, First dose on 09/27/20 at 1200, Until Discontinued, Routine albuterol (VENTOLIN) inhaler 8 Puff Given 09/26/2020 2:52 PM MACHINE CLOTHING REPLACER 8 Puffs 8 Puff, Inhalation, ONCE, 1 dose, 09/26/20 at 1530, ROBERTO, Is this order for a patient with suspected or confirmed COVID-19 infection? Yes calcium gluconate 1 g in NaCl 50 mL (ISO-OSM) Given 09/27/20 1:10 PM MACHINE CLOTHING REPLACER 1 g RTU IV infusion 1 g 1 g, IV Infusion, ONCE, 1 dose, 09/27/20 at 1200, Routine calcium gluconate 1 g in NaCl 50 mL (ISO-OSM) Given 09/28/20 12:17 PM MACHINE CLOTHING REPLACER 1 g RTU IV infusion 1 g 1 g, IV Infusion, ONCE, 1 dose, 09/28/20 at 0815, Routine calcium gluconate 2 g in NaCl 100 mL (ISO-OSM) Given 1 11/29/2019 3:00 AM MACHINE CLOTHING REPLACER 2 g RTU IV infusion 2 g 2 g, IV Infusion, ONCE, 1 dose, 09/28/20 at 0300, Routine D5W 0.45% NaCl (1/2NS) IV New Bag 09/26/2020 9:30 PM MACHINE CLOTHING REPLACER 1,000 mL 150 mL/hr infusion 1,000 mL at 150 mL/hr, 1,000 mL, IV Infusion, CONTINUOUS, Starting Tue09/26/20 at 1945, Until Tue09/28/20 at 1059, Routine dexamethasone (DECADRON PHOSPHATE) injection Given 01/2020 10:59 AM MACHINE CLOTHING REPLACER 10 mg 10 mg 10 mg, IV Push, ONCE, 1 dose, Tue09/26/20 at 1145, STAT dextrose 10% (D10W) bolus infusion 250 m L Given 09/26/2020 10:56 AM MACHINE CLOTHING REPLACER 250 mL 250 mL, IV Infusion, ONCE, Tue09/26/20 at 1145, For 1 dose, Dextrose 10% 250 mL bag contains: 10 gm = 100 mL 20 gm = 200 mL 25 gm = 250 mL (whole bag) The maximum rate at which dextrose can be infused without producing glycosuria is 0.5 g/kg/hour. BUD: If wrapper is open bag is good for 30 days at room temperature. , dextrose 50 % in water (D50W) injection 100 Given 02/2020 2:11 PM MACHINE CLOTHING REPLACER 100 mL mL 100 mL, Slow IV Push, ONCE, 1 dose, 09/27/20 at 1200, Routine dextrose 50 % in water (D50W) injection 100 Given 02/2020 11:23 PM MACHINE CLOTHING REPLACER 100 mL mL 100 mL, Slow IV Push, PRN - SEE INSTRUCTIONS, Starting 09/27/20 at 2120, Until 09/28/20 at 0150, Routine, Blood Glucose <= 60 dextrose 50 % in water (D50W) injection 50 mL Given 09/27/2020 5:45 PM MACHINE CLOTHING REPLACER 50 mL 50 mL, Slow IV Push, ONCE, 1 dose, 09/27/20 at 1700, Routine enoxaparin (LOVENOX) injection 40 mg Given 09/30/2020 9:50 AM MACHINE CLOTHING REPLACER 40 mg Abdo men-SC 40 mg, Subcutaneous, DAILY, First dose on 09/27/20 at 0900, Until Discontinued, Routine Given 09/29/2020 9:18 AM MACHINE CLOTHING REPLACER 40 mg Abdo men-SC Given 09/28/2020 9:36 AM MACHINE CLOTHING REPLACER 40 mg Abdo men-SC FENTanyl PF (SUBLIMAZE (PF)) injection 25 Given 09/26/2020 4:23 PM MACHINE CLOTHING REPLACER 25 mcg mcg 25 mcg, Slow IV Push, ONCE, 1 dose, 09/26/20 at 1730, STAT HYDROmorphone (DILAUDID) injection 0.4 m g Given 09/28/2020 1:10 PM MACHINE CLOTHING REPLACER 0.4 mg 0.4 mg, Slow IV Push, Q3HPRN, Starting 09/26/20 at 2231, Until 09/28/20 at 1623, Routine, Pain (scale 4-6), Pain (scale 7-10), Use approved by (Faculty): PAIN SERVICE Given 09/28/2020 9:31 AM MACHINE CLOTHING REPLACER 0.4 mg Given 09/28/2020 5:06 AM MACHINE CLOTHING REPLACER 0.4 mg insulin lispro (human) (HumaLOG Given 09/27/2020 3:30 PM MACHINE CLOTHING REPLACER 5 Units See Comment U-100) injection 5 Units 5 Units, Subcutaneous, ONCE, 1 dose, 09/27/20 at 1530, Routine iohexol (OMNIPAQUE 300-150 mL) injection 130 Given 01/2020 9:40 PM MACHINE CLOTHING REPLACER 130 mL mL 130 mL, Oral, ONCE, 1 dose, 09/26/20 at 2030, Routine lactated ringers IV infusion New Bag 09/26/2020 9:31 PM MACHINE CLOTHING REPLACER 1,000 mL 999 mL/hr 1,000 mL at 999 mL/hr, 1,000 mL, Intravenous, ONCE, 1 dose, Tue09/26/20 at 2100, Routine magnesium sulfate in water 2 gram/50 mL (4 %) New Bag 11:00 AM MACHINE CLOTHING REPLACER 2 g infusion 2 g 2 g, IV Piggyback, ONCE, 1 dose, Tue09/30/20 at 0745, Routine morpHINE injection 2 mg Given 09/26/2020 9:26 PM MACHINE CLOTHING REPLACER 2 mg 2 mg, Slow IV Push, Q4HPRN, Starting Tue09/26/20 at 2055, Until Tue09/26/20 at 2232, Routine, Pain (scale 7-10) NaCl 0.9% (NS) bolus infusion New Bag 09/26/2020 10:58 AM MACHINE CLOTHING REPLACER 1,497 mL 999 mL/hr 1,497 mL at 999 mL/hr, 1,497 mL (30 mL/kg 49.9 kg), IV Infusion, ONCE, 1 dose, Tue09/26/20 at 1045, STAT ondansetron (ZOFRAN (PF)) injection 4 mg Given 09/26/2020 10:58 AM MACHINE CLOTHING REPLACER 4 mg 4 mg, Slow IV Push, ONCE, 1 dose, Tue09/26/20 at 1200, ROBERTO pantoprazole (PROTONIX) 40 mg in NaCl 0.9% Given 09/28/2020 8:4 9 PM MACHINE CLOTHING REPLACER 40 mg (NS) 100 mL MINI-BAG 40 mg, IV Piggyback, Q24H, 3 doses, First dose on Tue09/26/20 at 1900, Last dose on Tue09/28/20 at 1900, 100 mL Given 09/27/2020 7:00 PM MACHINE CLOTHING REPLACER 40 mg Given 09/26/2020 10:01 PM MACHINE CLOTHING REPLACER 40 mg phytonadione (VITAMIN K) 10 mg in NaCl 0.9% Given 10/01/2020 9:26 AM MACHINE CLOTHING REPLACER 10 mg (NS) piggyback 10 mg, IV Piggyback, DAILY, 3 doses, First dose on 09/29/20 at 0900, Last dose on 10/01/20 at 0900, 50 mL Given 09/30/2020 4:26 PM MACHINE CLOTHING REPLACER 10 mg Given 09/29/2020 11:07 AM MACHINE CLOTHING REPLACER 10 mg piperacillin-tazobactam (ZOSYN) 3.375 g in Given 09/26 1:21 PM MACHINE CLOTHING REPLACER 3.375 g NaCl 0.9% (NS) 100 mL MINI-BAG 3.375 g, IV Piggyback, ONCE, 1 dose, Tue09/26/20 at 1430, 100 mL, Reason for Anti-Infective: Documented Infection, Documented Infection Site: Abdominal, Duration of Therapy: Other (see Comments) piperacillin-tazobactam (ZOSYN) 3.375 g in Given 09/29 9:19 AM MACHINE CLOTHING REPLACER 3.375 g NaCl 0.9% (NS) 100 mL MINI-BAG 3.375 g, IV Piggyback, Q6H ABX, First dose on Tue09/26/20 at 2000, Until Discontinued, 100 mL, Reason for Anti-Infective: Empiric Therapy for Suspected Infection, Empiric Therapy Site: Abdominal, Duration of therapy: 7 days Given 09/29/2020 2:00 AM MACHINE CLOTHING REPLACER 3.375 g Given 09/28/2020 8:49 PM MACHINE CLOTHING REPLACER 3.375 g potassium phosphate 44 mEq in NaCl 0.9% (NS) Given 05/2020 4:28 PM MACHINE CLOTHING REPLACER 44 mEq 250 mL piggyback 44 mEq, IV Piggyback, ONCE, 1 dose, Tue09/30/20 at 0730, 250 mL thiamine (VITAMIN B1) 100 mg, foLIC New Bag 09/30/2020 9:44 AM CS T 150 mL/hr acid (FOLATE) 1 mg, multivitamin adult (INFUVITE ADULT) 3,300 unit- 150 mcg/10 mL 10 mL in D5W 0.45% NaCl (1/2NS) IV Solution IV Infusion, at 150 mL/hr, DAILY, First dose on 09/27/20 at 0900, Until Discontinued, 1,000 mL New Bag 09/29/2020 11:07 AM MACHINE CLOTHING REPLACER 150 mL/hr New Bag 09/28/2020 9:00 AM MACHINE CLOTHING REPLACER 150 mL/hr traMADoL (ULTRAM) tablet 50 mg Given 09/28/2020 6:43 PM MACHINE CLOTHING REPLACER 50 mg 50 mg, Oral, Q6HPRN, Starting 09/28/20 at 1833, Until 09/28/20 at 1846, Routine, Pain (scale 4-6) traMADoL (ULTRAM) tablet 50 mg Given 09/29/2020 1:59 AM MACHINE CLOTHING REPLACER 50 mg 50 mg, Oral, Q6HPRN, Starting 09/28/20 at 1846, Until 09/29/20 at 0616, Routine, Pain (scale 4-6), Pain (scale 7-10) traMADoL (ULTRAM) tablet 50 mg Given 10/01/2020 12:03 AM MACHINE CLOTHING REPLACER 50 mg 50 mg, Oral, ONCE, 1 dose, 09/30/20 at 2315, Routine traMADoL (ULTRAM) tablet 50 mg Given 10/01/2020 11:20 PM MACHINE CLOTHING REPLACER 50 mg 50 mg, Oral, ONCE, 1 dose, Josseline 10/02/20 at 0015, Routine documented in this encounter Additional Health Concerns Infection Onset Date Last Indicated Resolved Time COVID-19 Confirmed 09/20/2020 09/20/2020 09/30/2020 8 :13 AM MACHINE CLOTHING REPLACER COVID-19 Rule Out 09/26/2020 09/26/2020 09/26/2020 11: 31 AM MACHINE CLOTHING REPLACER COVID-19 Rule Out 09/27/2020 09/27/2020 09/28/2020 2: 24 AM MACHINE CLOTHING REPLACER documented as of this encounter Insurance Payer Benefit Plan / Subscriber ID Effective Phone Address T ype Group Dates MEDICAID MEDICAID PENDING 2020-10/[address] [place] [address] Pending [facility] [phone] documented as of this encounter
--- OUTSIDE RECORDS SUMMARY | 2020-10-05 14:13 | XMS REPORT | Summary of Care ---
:1985 Author Organization [facility] Address [address] [place] [id number] Care Team Providers Name Role Phone Pcp, Does Not Have A Primary Care Provider Reason for Visit Reason Comments Abdominal Pain Auth/Cert Status Reason Specialty Diagnoses / Referred By Referred To Procedures Contact Contact Emergency Medicine [facility] [address] [place] [phone] Fax: Encounter Details Date Type Department Care Team Description 10/04/2020 Emergency [facility] Flaco Silvestre, Protein-calorie [address] [place] [address] unspecified severity [place], [place] RS0012 (Primary Dx) [phone] [place], [place] [phone] [id number] [phone] Allergies No Known Allergiesdocumented as of this encounter (statuses as of 10/04/2020) Medications No known medicationsdocumented as of this encounter (statuses as of 10/04/2020) Active Problems Problem Noted Date Severe nausea and vomiting 10/04/2020 Epigastric abdominal pain 10/02/2020 Abdominal pain 09/26/2020 E46 Unspecified severe protein-calorie malnutrition 1 10/25/2019 Dysphagia 08/24/2020 Hypokalemia 08/24/2020 Esophageal dysphagia 08/23/2020 Overview: Added automatically from request for gin singletary [id number] Bipolar 1 disorder GERD (gastroesophageal reflux disease) documented as of this encounter (statuses as of 10/04/2020) Immunizations Name Administration Dates Next Due Influenza [...] been in contact with No / Unsure 10/04/2020 2:21 PM [employer] someone who was confirmed or 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 documented as of this encounter Last Filed Vital Signs Vital Sign Reading Time Taken Comments Blood Pressure 117/50 10/04/2020 2:24 PM [employer] Pulse 94 10/04/2020 2:24 PM [employer] Temperature 37.1 C (98.7 F) 10/04/2020 2:24 PM [employer] Respiratory Rate 20 10/04/2020 2:24 PM [employer] Oxygen Saturation 97% 10/04/2020 2:24 PM [employer] Inhaled Oxygen Concentration - - Weight 39 kg (85 lb 15.7 oz) 10/04/2020 2:24 PM [employer] Height - - Body Mass Index 14.31 10/04/2020 6:05 AM [employer] documented in this encounter Progress Notes Alisa Otoole DO - 10/04/2020 2:39 PM CSTPt continues to leave AMA and return to ED where he is given IV narcotics each time. Suspect that this is one of the reasons for his behavior. Strongly advise next provider to refrain from giving this patient IV narcotics. documented in this encounter ED Notes Micki Coburn RN - 10/04/2020 2:22 PM CSTQuintin Eric Ag Jr. is a 35 year old male to ED for abd pain with nausea and vomiting. Pt was inpt on 10th floor and left AMA this AM. Patient reports he left and got food and pain and nausea became worse. Patient moaning and writhing on stretcher not cooperative and not following commands. Patient to room for treatment. [place] [employer] documented in this encounter Miscellaneous Notes ED Nurse Note - Corey Lee RN - 10/04/2020 4:00 PM CSTPatient departing against medical advise. Patient advised of possible consequences including injury or . Patient verbalizes understanding and still wishes to depart against medical advice. Patientis alert oriented and verbalizes understanding. IV removed with patient tolerating well no signs of swelling, redness or pain, catheter intact, and bleeding controlled with direct pressure. Patient departing without signs of pain or distress. D Nurse Note - Corey Lee RN - 10/04/2020 3:15 PM Martha Ag Jr. is a 35 year old male resting with constant complaint of pain and requesting pain medications. Patient is further agitating for food and drink that will not be provided by thiswriter related to known esophageal stricture and vomiting. Patient requesting to speak to physician. Patient is further agitating to make phone call. creative services coordinator asked to assist patient in making call. D Nurse Note - Alisa Nguyễn RN - 10/04/2020 2:50 PM [employer] Report given to MARTINA Ambrose. AMBROCIO, primary/secondary survey, identified injuries, orders, treatments reviewed. ALISA NGUYỄN RN D Nurse Note - Alisa Nguyễn RN - 10/04/2020 2:33 PM Martha Ag Jr. is a 35 year old male presenting to ED with c/o vomiting. Patient left AMA from upstairs because "i keep having manic episode and think that yall arent helping me". Patient states that he left and then was taken to [facility]. Patient reports that he ate and then began vomitingand didn't feel good. Patient arrived to room and reports that he is having abd pain. No vomiting noted. Patient answering questions approprietly and requesting something to drink. Patient appears cachectic. VSS. Respirations even and unlabored. Lung sounds clear bilaterally. Bowel sounds normoactivein all 4 quadrants. Bed locked and in lowest position with call gandara within reach. [place] [employer] documented in this encounter Plan of Treatment Date Type Specialty Care Team Description 11/14/2020 Office Visit Thoracic Surgery Delvis Garcia MD [address] [place] [phone] Health Maintenance Due Date Last Done Comments VARICELLA VACCINES (1 of 2 - 2-dose childhood series) 1985 Depression Screening 1996 DTaP,Tdap,and Td Vaccines (1 - Tdap) 2003 PNEUMOCOCCAL 0-64 YEARS COMBINED SERIES (2 of 3 - 08/30/2021 08/30/2020 PCV13) INFLUENZA VACCINE Completed 08/30/2020 documented as of this encounter Procedures Procedure Name Priority Date/Time Associated Diagnosis Comme nts CBC WITH DIFF STAT 10/04/2020 2:55 PM Protein-calorie Resu lts for this [employer] malnutrition, procedure are in unspecified severity the res ults section. BASIC METABOLIC STAT 10/04/2020 2:55 PM Protein-calorie Re sults for this PANEL (NA, K, CL, [employer] malnutrition, procedure are in CO2, GLUCOSE, BUN, unspecified severity t he results CREATININE, CA) section. HEPATIC FUNCTION STAT 10/04/2020 2:55 PM Protein-calorie R esults for this PANEL (37486) [employer] malnutrition, procedure are in (ALB,T.PRO,BILI unspecified severity the results T,BU/BC,ALT,AST,ALK section. PHOS) LIPASE STAT 10/04/2020 2:55 PM Protein-calorie Resul ts for this [employer] malnutrition, procedure are in unspecified severity the res ults section. POCT GLUCOSE Routine 10/04/2020 2:49 PM Results for this (AUTOMATED) [employer] procedure are i n the results section. documented in this encounter Results Lipase Serum (10/04/2020 2:55 PM [employer]) Pathologist Sig nature LIPASE 628 (H) 0 - 220 U/L [facility] Specimen Blood - VENOUS Performing Organization Address City/State/Zipcode Phone Number [facility] CLIA: [id number] [place] [address] [place] [address] Hepatic Function Panel (ALB, T.PRO, BILI T, BU/BC, ALT, AST, ALK PHOS) (10/04/2020 2:55 PM [employer]) Pathologist Sig nature TOTAL BILI 0.9 0.1 - 1.1 mg/dL [facility] BILI UNCON 0.8 0.1 - 1.1 mg/dL [facility] BILI CONJ 0.0 0.0 - 0.3 mg/dL [facility] T PROTEIN 6.2 (L) 6.3 - 8.2 g/dL [facility] ALBUMIN 2.9 (L) 3.5 - 5.0 g/dL [facility] ALK PHOS 668 (H) 34 - 122 U/L [facility] ALTv 403 (H) 5 - 50 U/L [facility] AST(SGOT) 299 (H) 13 - 40 U/L [facility] Specimen Blood - VENOUS Performing Organization Address [facility]/Zipcode Phone Number [facility] CLIA: [id number] [place] [address] [place] [address] Basic Metabolic Panel (NA, K, CL, CO2, GLUCOSE, BUN, CREATININE, CA) (10/04/2020 2:55 PM [employer]) Pathologist Sig nature NA 142 135 - 145 [facility] mmol/L SERVICES K 3.4 (L) 3.5 - 5.0 [facility] mmol/L SERVICES CL 108 98 - 108 mmol/L [facility] CO2 TOTAL 30 23 - 31 mmol/L [facility] AGAP 4 2 - 16 [facility] BUN 25 (H) 7 - 23 mg/dL [facility] GLUCOSE 57 (L) 70 - 110 mg/dL [facility] CREATININE 0.62 0.60 - 1.25 [facility] mg/dL SERVICES CALCIUM 7.5 (L) 8.6 - 10.6 [facility] mg/dL SERVICES eGFR Calculation 146.8 mL/min/1.73m2 [facility] (Non- SERVICES Sw[place]) eGFR Calculation 177.9 mL/min/1.73m2 [facility] () SERVICES Specimen Blood - VENOUS [...] [facility] CLIA: [id number] [place] [address] [place] [address] CBC with Differential (10/04/2020 2:55 PM [employer]) WBC 13.52 (H) 4.20 - 10.70 [facility] 10*3/L SERVICES RBC 3.81 (L) 4.26 - 5.52 [facility] 10*6/L SERVICES HGB 10.8 (L) 12.2 - 16.4 [facility] g/dL SERVICES HCT 32.4 (L) 38.4 - 49.3 % [facility] MCV 85.0 81.7 - 95.6 [facility] fL SERVICES MCH 28.3 26.1 - 32.7 [facility] pg SERVICES MCHC 33.3 31.2 - 35.0 [facility] g/dL SERVICES RDW-SD 43.7 38.5 - 51.6 [facility] fL SERVICES RDW-CV 14.2 12.1 - 15.4 % [facility] SERVICES PLT 52 (L) 150 - 328 [facility] 10*3/L SERVICES MPV Comment: Not [facility] Measured SERVICES IPF % 9.7Comment: Platelet 1.2 - 10.7 % [facility] count measured by SERVICES fluorescence method. NRBC/100 WBC 0.0 0.0 - 10.0 [facility] /100 WBCs SERVICES NRBC x10^3 <0.01 10*3/L [facility] GRAN MAT (NEUT) % 82.3 % [facility] IMM GRAN % 0.50 % [facility] LYMPH % 14.6 % [facility] MONO % 2.5 % [facility] EOS % 0.0 % [facility] BASO % 0.1 % [facility] GRAN MAT 11.13 (H) 1.99 - 6.95 [facility] x10^3(ANC) 10*3/uL SERVICES IMM GRAN x10^3 0.07 (H) 0.00 - 0.06 [facility] 10*3/uL SERVICES LYMPH x10^3 1.97 1.09 - 3.23 [facility] 10*3/uL SERVICES MONO x10^3 0.34 (L) 0.36 - 1.02 [facility] 10*3/uL SERVICES EOS x10^3 <0.03 (L) 0.06 - 0.53 [facility] 10*3/uL SERVICES BASO x10^3 <0.03 0.01 - 0.09 [facility] 10*3/uL SERVICES Specimen Blood - VENOUS Performing Organization Address City/State/Zipcode Phone Number [facility] CLIA: [id number] [place], [place] [id number] [address] [place] [address] POCT GLUCOSE (AUTOMATED) (10/04/2020 2:49 PM [employer]AL [employer]) [facility] POCT GLU 114 (H) 70 - 110 mg/dL [facility] Specimen Blood Performing Organization Address City/[facility]/Zipcode Phone Number [facility] CLIA: [id number] [place], [place] [address] [address] [place] [address] documented in this encounter Visit Diagnoses Diagnosis Protein-calorie malnutrition, unspecifie d severity - Primary documented in this encounter Administered Medications Medication Order MAR Action Action Date Dose Rate Site D5W 0.45% NaCl (1/2NS) IV New Bag 10/04/2020 3:04 PM [employer] 1,000 mL 100 mL/hr infusion 1,000 mL at 100 mL/hr, 1,000 mL, IV Infusion, ONCE, 1 dose, 10/04/20 at 1600, ROBERTO documented in this encounter
--- OUTSIDE RECORDS SUMMARY | 2020-10-05 14:13 | XMS REPORT | Summary of Care ---
:1985 Author Organization [facility] Address [address] [place] [id number] Care Team Providers Name Role Phone Pcp, Does Not Have A Primary Care Provider Reason for Referral Radiology Services (STAT) Status Reason Specialty Diagnoses / Referred By Referred To Procedures Contact Contact New Request Diagnostic Diagnoses Achalasia Jamel Mendez Radiology Procedures XR ABDOMEN ACUTE MARISELA Pan MD [address] [place] [id number] Reason for Visit Reason Comments Weakness Pain Auth/Cert Status Reason Specialty Diagnoses / Referred By Referred To Procedures Contact Contact Emergency Medicine [facility] Dept [address] [place] [phone] Fax: Encounter Details Date Type Department Care Team Description 10/03/2020 - Hospital Medicine (JADE 10B) Jamel Mendez MD [address] [place] [address] [phone] Severe nausea and 10/04/2020 Encounter 712 [facility] Erwin Pena MD [address] [place] [address] [phone] vomiting [place], [place] Ramila Johnson MD [address] [place] [address] [id number] [place], [place] [id number] Clarice Peoples MD [address] [place] [address] [phone] Allergies No Known Allergiesdocumented as of this encounter (statuses as of 10/04/2020) Medications Medication Sig Dispensed Refills Start Date End Date Status divalproex sodium Take by 0 10/04/2020 D iscontinued (DEPAKOTE ORAL) mouth. sertraline HCl Take by 0 10/04/2020 Disc ontinued (ZOLOFT ORAL) mouth. guanfacine HCl Take by 0 10/04/2020 Disc ontinued (TENEX ORAL) mouth. nitroglycerin 0.4 Place 1 90 tablet 2 08/30/2020 10/04/2020 Discontinued mg sublingual tablet under tabletIndications: the tongue Achalasia of before meals. esophagus omeprazole 40 mg Take 1 30 capsule 2 08/30/2020 10/04/2020 Discontinued capsuleIndications: capsule by Achalasia of mouth daily. esophagus ziprasidone Take 80 mg by 0 10/04/2020 Dis continued (GEODON) 80 mg mouth 2 (two) capsule times daily with meals. documented as of this encounter (statuses as of 10/04/2020) Active Problems Problem Noted Date Severe nausea and vomiting 10/04/2020 Epigastric abdominal pain 10/02/2020 Abdominal pain 09/26/2020 E46 Unspecified severe protein-calorie malnutrition 1 10/25/2019 Dysphagia 08/24/2020 Hypokalemia 08/24/2020 Esophageal dysphagia 08/23/2020 Overview: Added automatically from request for gin singletary [id number] Bipolar 1 disorder GERD (gastroesophageal reflux disease) documented as of this encounter (statuses as of 10/04/2020) Immunizations Name Administration Dates Next Due Influenza Virus Vaccine Quad .5 mL IM 6+ MO 08/30/2020 Pneumococcal Polysaccharide, PPSV23 (PNEUMOVAX) 08/30/2020 documented as of this encounter Social History Tobacco Use Types Packs/Day Years Used Date Current Every Day Smoker Smokeless Tobacco: Never Used Tobacco Cessation: Ready to Quit: Yes; C ounseling Given: Yes Comments: 1/2 pack/ day Education Answer Date Recorded What is the highest level of school you have High school [employer] 10/02/2020 completed or the highest degree you have received? Sex Assigned at Date Recorded Not on file COVID-19 Exposure Response Date Recorded In the last month, have you been in contact with No / Unsure 10/03/2020 9:23 PM BUILDING COMPONENTS DESIGNER someone who was confirmed or 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 documented as of this encounter Last Filed Vital Signs Vital Sign Reading Time Taken Comments Blood Pressure 101/72 10/04/2020 8:41 AM BUILDING COMPONENTS DESIGNER Pulse 55 10/04/2020 8:41 AM BUILDING COMPONENTS DESIGNER Temperature 36.7 C (98 F) 10/04/2020 8:41 AM BUILDING COMPONENTS DESIGNER Respiratory Rate 18 10/04/2020 8:41 AM BUILDING COMPONENTS DESIGNER Oxygen Saturation 100% 10/04/2020 8:41 AM BUILDING COMPONENTS DESIGNER Inhaled Oxygen Concentration - - Weight 39 kg (85 lb 14.4 oz) 10/04/2020 6:05 AM BUILDING COMPONENTS DESIGNER Height 165.1 cm (5' 5") 10/04/2020 6:05 AM BUILDING COMPONENTS DESIGNER Body Mass Index 14.29 10/04/2020 6:05 AM BUILDING COMPONENTS DESIGNER documented in this encounter Progress Notes Luz Marina Fofana RN - 10/04/2020 10:43 AM CSTCommunicated with ER charge nurse, January about patient leaving AMA for the past 3 days in a row and going back to the ER and being readmitted. Charge nurse aware of situation. Alisa Turcios DO - 10/04/2020 6:56 AM CSTIM Handoff Form Admitting Resident: Dr. Jenkins Current Resident: Sydnie Team Assignment: Eben Kendall HPI: Tahir Ag . is a 35 year old malewith PMH of bipolar 1, schizophrenia, and achalasia who left AMA once again yesterday and returned once again within a few hours after refusing to adhere with liquid diet. Each time patient returns through the ED, he receives either morphine or Fentanyl in ED and UDS result is positive for opioids. Each time patient is educated about the importance of adherence with recommended diet however he is once again found with regular foods such as whataburger, rotisserie chicken, etc. Yesterday prior to leaving patient was lethargic with pinpoint pupils and was given narcan. There is concern per primary team and family that patient may be using illicit drugs when he leaves AMA, full panel UDS from 10/01 and yesterday are still pending. Pt cannot undergo EGD until 20 days after COVID test (10/10). Attempted to have NGT placement under fluoroscopyfor patient during the week however he left AMA twice before anything could be arranged. This morning patient is once again asking for regular diet and double portions despite numerous explanations and visual demonstrations of why this is not recommended. Pt crying again and threatening toleave. Significant Lab/EKG/Radiology Abnormalities: -bradycardia in the 50s -transaminases downtrending -drug screens are pending -Plt drop yesterday has increased slightly, unclear reasons but diff consult shows peripheral destruction. HIT antibodies were negative and Depacon was held. Pending Labs/Radiology/Heart Studies: -if patient is decides to remain inpatient and comply with care and if liver enzymes improve, tentative plan for EGD/manometry by GI on 10/10. -if patient remains inpatient can attempt NGT under IR guidance which already has a high risk of failure given tight LES. -f/u HSV PCR, ASMA, AMA, [id number] signed by Alisa Otoole DO at 10/04/2020 8:29 AM CSTdocumented in this encounter H&P Notes Gianni Dumont MD - 10/04/2020 12:05 AM CST [facility]FF[facility] TEAM H&P PCP: PATIENT DOES NOT HAVE A PCP Date of Service: 10/04/2020 CHIEF COMPLAINT: Nausea/vomitting; weakness HISTORY OF PRESENT ILLNESS Tahir Ag . is a 35 year old malewith PMH of bipolar 1, schizophrenia, and achalasiawho left AMA again earlier this afternoon after refusing to adhere to liquid diet. This was his 2nd time leaving AMA and coming back to the ED within a couple hours. Says he started having n/v at the [employer] after eating chicken strips so came back to ED. Complains of generalized body pain and asking for pain medications. Having some substernal, dull, aching chest pain that is worse on palpation. 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 Also having some epigastric/RUQ pain which radiatesto his back. Denied any f/c, SOB, cough, numbness, ACUÑA, vision changes, syncope, or recent drug use since leaving the hospital. In ED, VSS and afebrile. Glucose 88, and XR abdomen acute series without intraabdominal or intrathoracic abnormalities. Patient transferred to the floor for further management. PMH: Past Medical History: Diagnosis Date Bipolar 1 disorder GERD (gastroesophageal reflux disease) Manic affective disorder with recurrent episode Schizophrenia PSH: denied any surgical hx SocHx: h/o cocaine and marijuana abuse FMH: no significant family hx ALLERGIES No Known Allergies MEDICATIONS Current Facility-Administered Medications Medication Dose Route Frequency Last Rate Last Admin FENTanyl PF (SUBLIMAZE (PF)) injection 25 mcg 25 mcg Slow IV Push ONCE NaCl 0.9% (NS) bolus infusion 1,000 mL 1,000 mL IV Piggyback ONCE Current Outpatient Medications Medication Sig Dispense Refill nitroglycerin 0.[address] 1 [...] sertraline HCl (ZOLOFT ORAL) Take by mouth. REVIEW OF SYSTEMS General: (+) weight loss, (-) fever, (-) chills Skin: (-) rash, (-) lesion HEENT: (-) headache, (-) change in hearing, (-) change in vision Neck: (+) pain, (+) difficulty swallowing Heme: (-) bleeding disorder Resp: (-) cough, (-) shortness of breath, (-) dyspnea on exertion Cardio: (+) chest pain, (-) palpitations GI: (+) nausea, (+) vomiting, (-) abdominal pain, (-) diarrhea, (-) constipation, (-) melena : (-) dysuria, (-) hematuria Endo: (-) heat intolerance, (-) diabetes Neuro: (-) numbness, (-) tingling Back: (-) pain, (-)spasms MS: (+) muscle pain, (-) joint pain Psych: (+) psychiatric disorder PHYSICAL EXAMINATION Vitals: 10/03/20 2125 BP: 103/87 Pulse: 66 Resp: 18 Temp: 36.3 C (97.4 F) TempSrc: Oral SpO2: 99% Constitutional: Patient alert & oriented x 3 (person, place, time) and in no acute distress; cachetic appearance HEENT EMOI, PERRL, anicteric sclera, oropharynx clear, MMM Resp: Clear to auscultation bilaterally, no wheezes or crackles. Not in respiratory distress CV: Regular rate and rhythm, normal S1 S2, no murmurs, rubs or gallops GI: Abdomen is soft, slightly TTP in RUQ/epigastric region, non-distended, with normoactive bowel sounds : Deferred Skin: No rash, lesions, or erythema MSK: Full ROM Extremities: No clubbing, cyanosis or edema Neuro: Cranial Nerves II-XII grossly intact, sensory exam normal Vascular: 2+ peripheral pulses, cap refill 2 seconds Endocrine/Lymph: No cervical LAD Psych: normal affect LABS/IMAGING - reviewed As above ASSESSMENT/PLAN Tahir Ag Jr. is a 35 year old male admitted to the hospital with: Achalasia Elevated lipase Elevated liver enzymes Thrombocytopenia Hypoglycemia Severe Protein Calorie Malnutrition Hypophosphatemia Patient left AMA again and returned with n/v and weakness after trying to eat chicken strips. Negative HBV PCR, HBcIgM, HAV IgM, HIV, LOYD; EBV, HSV PCR, ASMA, AMA, anti-LKM1 pending. Liver enzymes continuing to down trend. Still having hypoglycemia; will start on continuous d5w 0.45 NS. Having some RUQ/epigastric pain and tenderness on exam however complains of generalized pain each admission wantingmorphine and doesn't seem to be in distress. Had elevated lipase two days ago; bolus 1L in ED and will start IVF at 200 cc/hr given possible pancreatitis however unsure if truly having classic pancreatitis pain if malingering for opioids. - F/u GI recs -EBV, HSV PCR, ASMA, AMA, anti-LKM1 pending. -Defer EGD Manometry during acute phase of liver injury. GI wanting towait 20days from positive COVID test prior to procedure (approx 10/10/2020) - tele - Monitor urine output to ensure adequate hydration - D5 1/2NS 200 cc/hr - Continue to monitor glucose levels q6 as patient has been recurrently hypoglycemic - Monitor and replete lytes as needed - SCDs for DVT prophylaxis given thrombocytopenia - CLD; may need to consider NGT placement Bipolar 1 and Schizophrenia Patient with previously noted psychiatric disorder. Psych consulted last admission and believe patient to be competent. Recommended to restart home meds zoloft 200 mg daily, geodon 80mg BID, Guanfacine1 mg BID, Depakote 750 mg BID, ativan 0.5 mg BID. Patient was somnolent yesterday so believe depakote was stopped due to this and also cause of acute live injury this admission. Also BP soft so will hold guanfacine. Also geodon/zoloft metabolized by liver so dose adjustments needed and doesn't seem totolerate much PO intake however could use IM geodon if needed. Would consider placing NGT (radiologyassisstance likely needed due to achalasia) however patient also leaving AMA frequently and would belikely to pull it out. -Hold home psych meds for now; can consider reintroducing geodon/zoloft as tolerated PAIN:Tramadol Prophylaxis: SCDs Code Status: Full Gianni Dumont PGY-3 Internal Medicine DING COMPONENTS DESIGNER Associated attestation - Clarice Peoples MD - 10/04/2020 3:48 AM CSTI personally examined the patient on 10/04/[address] Jenkins's resident H&P note as written. I actively participated in the decision- making process. Please see the resident's note for additional details. Clarice Peoples MD 10/04/2020 3:48 AM documented in this encounter ED Notes Amy Lyon RN - 10/03/2020 9:23 PM Martha Ag Jr. is a 35 year old male arrived via [facility] for malaise and generalized body pain. Patient was seen and left AMA earlier today from this ER. Patient called EMS states he vomited at [facility] [employer] 6 times since 1800. Patient appears emaciated Ching Chacon MD - 10/03/2020 9:22 PM CST [facility] Emergency Department Note Patient Name: Tahir Ag Jr. Date of : 1985 35 year old male Treatment Room: 115/[facility] Primary Care Physician: PATIENT DOES NOT HAVE A PCP Patient Escorted by: Self [9] Mode of Arrival: EMS - [facility] [30] EMS Treatment Prior to ED Arrival: Yes EP TECHNOLOGIST treatment: None Travel and Exposure Screening: Symptoms Does patient have any of these symptoms?: (not recorded) Exposure Screening Has patient had contact with someone with a communicable disease in the last month?: (not recorded) Diseases exposed to:: (not recorded) Is Patient ?: (not recorded) Exposure Date: (not recorded) Chief Complaint: Chief Complaint Patient presents with Weakness Pain History of Present Illness: Tahir Ag Jr. is a 35 year old malewith PMH of bipolar 1, schizophrenia, h/o cocaine abuse and achalasia presenting with nausea/vomiting. Patient was originally admitted on 09/26 for a possible esophageal rupture and was diagnosed with achalasia. His labs showed acute liver injury likely due to shock after syncopal episodes or/and cocaineabuse. He then left AMA yesterday and came back and then left AMA today as well. [facility] a solid food meal despite full liquid diet restrictions. About an hour after eating he reports of episodes of nausea and vomiting. He also has 10/10 chest pain. He feels weak and has difficulties walking due to leg weakness. On arrival, blood pressure is 103/87 and pulse is 66. Patient appears cachectic and weak but does not appear to be in acute distress. Past Medical History/Immunizations: Past Medical History: Diagnosis Date Bipolar 1 disorder GERD (gastroesophageal reflux disease) Manic affective disorder with recurrent episode Schizophrenia Tetanus received in last 5 years: Unknown Childhood immunizations: Up-to-date Allergies: No Known Allergies Past Social History: Tobacco Use Current Every Day Smoker. Smokeless Tobacco: Never used smokeless tobacco. Comments: 1/2 pack/ day Past Surgical History: No past surgical history on file. Review of Systems: Review of Systems Constitutional: Positive for fatigue and unexpected weight change. Negative for chills, diaphoresis and fever. HENT: Negative for congestion and sore throat. Eyes: Negative for visual disturbance. Respiratory: Negative for cough and shortness of breath. Cardiovascular: Positive for chest pain. Negative for palpitations and leg swelling. Gastrointestinal: Positive for nausea and vomiting. Negative for abdominal distention, abdominal pain, constipation and diarrhea. Genitourinary: Negative for dysuria. Musculoskeletal: Positive for gait problem. Negative for arthralgias and myalgias. Neurological: Positive for weakness. Negative for dizziness, light-headedness, numbness and headaches. Psychiatric/Behavioral: Negative for confusion. Physical Exam: ED Triage Vitals [10/03/202124] Weight Actual or estimated Height BP 103/87 Pulse 66 Resp 18 Temp 36.3 C (97.4 F) Temp source Oral SpO2 99 % Measured on Room air Physical Exam Constitutional: General: He is not in acute distress. Appearance: He is cachectic. HENT: Head: Normocephalic and atraumatic. Eyes: Extraocular Movements: Extraocular movements intact. Pupils: Pupils are equal, round, and reactive to light. Neck: Musculoskeletal: Normal range of motion and neck supple. Cardiovascular: Rate and Rhythm: Normal rate and regular rhythm. Heart sounds: No murmur. No friction rub. No gallop. Pulmonary: Effort: Pulmonary effort is normal. Breath sounds: Normal breath sounds. Abdominal: General: There is no distension. Palpations: Abdomen is soft. Tenderness: There is no abdominal tenderness. There is no guarding or rebound. Musculoskeletal: General: No swelling or deformity. Skin: General: Skin is warm and dry. Neurological: General: No focal deficit present. Mental Status: He is alert and oriented to person, place, and time. Cranial Nerves: No cranial nerve deficit. Sensory: No sensory deficit. Motor: Weakness and atrophy present. No pronator drift. Comments: Upper extremities: 4/5 throughout Lower extremities: 3/5 hip and knee (flexion/extension), 4/5 ankle and toes (flexion/extension) Radiology: No results found for this visit on 10/03/20. Lab Results (24h): Recent Results (from the past 24 hour(s)) POCT GLUCOSE (AUTOMATED) Collection Time: 10/03/20 12:05 AM Result Value Ref Range POCT GLU 94 70 - 110 mg/dL DRUG SCREEN ER (URINE) Collection Time: 10/03/20 2:53 AM Result Value Ref Range AMPHET Negative Negative Cocaine Metabolite Negative Negative OPIATES Presumptive Positive (A) Negative THC Negative Negative MAGNESIUM Collection Time: 10/03/20 5:38 AM Result Value Ref Range MAGNESIUM 1.8 1.7 - 2.4 mg/dL PHOSPHORUS Collection Time: 10/03/20 5:38 AM Result Value Ref Range PHOSPHORUS 2.0 (L) 2.5 - 5.0 mg/dL PROTHROMBIN TIME / INR Collection Time: 10/03/20 5:38 AM Result Value Ref Range PROTIME PATIENT 12.2 10.1 - 12.6 Seconds INR 1.1 HEPATIC FUNCTION PANEL (21827) (ALB,T.PRO,BILI T,BU/BC,ALT,AST,ALK PHOS) Collection Time: 10/03/20 5:38 AM Result Value Ref Range TOTAL BILI 0.8 0.1 - 1.1 mg/dL BILI UNCON 0.8 0.1 - 1.1 mg/dL BILI CONJ 0.0 0.0 - 0.3 mg/dL T PROTEIN 6.1 (L) 6.3 - 8.2 g/dL ALBUMIN 2.9 (L) 3.5 - 5.0 g/dL ALK PHOS 742 (H) 34 - 122 U/L ALTv 425 (H) 5 - 50 U/L AST(SGOT) 238 (H) 13 - 40 U/L CBC WITH DIFF Collection Time: 10/03/20 5:38 AM Result Value Ref Range WBC 8.14 4.20 - 10.70 10*3/L RBC 3.77 (L) 4.26 - 5.52 10*6/L HGB 10.6 (L) 12.2 - 16.4 g/dL HCT 32.0 (L) 38.4 - 49.3 % MCV 84.9 81.7 - 95.6 fL MCH 28.1 26.1 - 32.7 pg MCHC 33.1 31.2 - 35.0 g/dL RDW-SD 43.8 38.5 - 51.6 fL RDW-CV 14.2 12.1 - 15.4 % PLT 39 (LL) 150 - 328 10*3/L MPV IPF % 10.0 1.2 - 10.7 % NRBC/100 WBC 0.0 0.0 - 10.0 /100 WBCs NRBC x10^3 <0.01 10*3/L GRAN MAT (NEUT) % 70.0 % IMM GRAN % 0.40 % LYMPH % 26.7 % MONO % 2.7 % EOS % 0.1 % BASO % 0.1 % GRAN MAT x10^3(ANC) 5.70 1.99 - 6.95 10*3/uL IMM GRAN x10^3 0.03 0.00 - 0.06 10*3/uL LYMPH x10^3 2.17 1.09 - 3.23 10*3/uL MONO x10^3 0.22 (L) 0.36 - 1.02 10*3/uL EOS x10^3 <0.03 (L) 0.06 - 0.53 10*3/uL BASO x10^3 <0.03 0.01 - 0.09 10*3/uL VITAMIN B12, LEVEL Collection Time: 10/03/20 5:38 AM Result Value Ref Range VIT B12 >1,000 (H) 240 - 930 pg/mL FOLATE Collection Time: 10/03/20 5:38 AM Result Value Ref Range FOLATE SER 5.5 3.0 - 20.0 ng/mL POCT GLUCOSE (AUTOMATED) Collection Time: 10/03/20 11:19 AM Result Value Ref Range POCT GLU 88 70 - 110 mg/dL EKG: Orders and Treatments: Orders Placed This Encounter Procedures XR ABDOMEN ACUTE SERIES COMP. METABOLIC PANEL (27619) DRUG SCREEN ER (URINE) Orders Placed This Encounter Medications NaCl 0.9% (NS) bolus infusion 1,000 mL FENTanyl PF (SUBLIMAZE (PF)) injection 25 mcg ED COURSE ED Course as of Oct 04 0137 Sat Oct 04, 2020 0033 Low glucose, not holding down food/liquids. Giving D10 now. Plan re-admit. States he will stay. [GR] ED Course User Index [GR] Jamel Mendez MD Achalasia Hypoglycemia Cachexia Diet non-compliance H/o cocaine abuse Acute abdomen series did not show acute esophageal rupture as did previous CT imaging and barium study. Patient was noted to be hypoglycemic and received juice and D10. Patient is admitted to medicine for further management. MDM: MDM Interpretation: labs and x-ray Total time providing critical care: < 30 minutes. This excludes time spent performing separately reportable procedures and services. Diagnosis/Impression: ICD-10-CM ICD-9-CM 1. Achalasia K22.0 530.0 Disposition/Condition: ED Disposition None Discharge Medications: Patient's [...] medications on file Follow-up: Electronically signed by: Ching Robertson MD 10/03/2020 10:45 PM DING COMPONENTS DESIGNER Associated attestation - Jamel Mendez MD - 10/04/2020 7:03 AM BUILDING COMPONENTS DESIGNER EMERGENCY MEDICINE ATTENDING NOTE/ATTESTATION I have seen and examined the patient, and agree with the history, review of systems, physical exam and plan as outlined by Dr. Robertson, except as noted below. ED Course as of Oct 04 0703 Sat Oct 04, 2020 0033 Low glucose, not holding down food/liquids. Giving D10 now. Plan re-admit. States he will stay. [GR] ED Course User Index [GR] Jamel Mendez MD DX: Hypoglycemia Malnutriation Intractable nausea and vomiting due to achalasia Plan: Admit to medicine. Patient agrees to stay in hospital. Jamel Mendez MD Emergency Services, [facility] documented in this encounter Miscellaneous Notes Nursing Note - Enedina Sanchez RN - 10/04/2020 8:40 AM CSTWent to patient room to answer call light. Patient requesting more food. Discussed the need to take in liquids slow as patient reports he has thrown up all liquids he has been given. Patient is very agitated. Patient refused assessment at this time. D Nurse Note - Kimmy Scott RN - 10/04/2020 4:56 AM CSTNurse Report Report given to Alvina. Chief complaint, assessment findings and orders reviewed. Plan of care discussed at bedside with patient and both nurses. Patient/family members verbalized understanding. Kimmy Scott RN D Nurse Note - Kimmy Scott RN - 10/04/2020 4:42 AM CSTPatient given ice chips, bottled water, warm blanket and emesis bag per his request. D Nurse Note - Kimmy Scott RN - 10/04/2020 3:25 AM CSTPatient continues to state he is cold and asks for coffee. Educated patient that coffee is not a part of the clear liquid diet. Patient not satisfied but verbalized understanding. Patient given anotherwarm blanket. Bed low locked and side rails up x2. Call light within reach. Will continue to monitor. D Nurse Note - Kimmy Scott RN - 10/04/2020 2:30 AM CSTPatient asks for coffee. Educated this is not part of clear liquid diet. Patient verbalized understanding. Bed low locked and side rails up x2. Call light within reach. Will continue to monitor. D Nurse Note - Kimmy Scott RN - 10/04/2020 1:34 AM CSTPatient given warm blanket. Patient vomited after being given juice. Dr munroeed juice to be given. D Nurse Note - Beth Bryant RN - 10/04/2020 12:11 AM CSTNURSE REPORT Report given to MARTINA Oneal. Chief complaint, assessment finding and orders reviewed. Plan of care discussed at bedside with patient and both nurses. Patient/family members verbalized understanding. BETH BRYANT RN D Nurse Note - Beth Bryant RN - 10/03/2020 9:35 PM CSTPt provided with warm blanket at bedside. D Nurse Note - Beth Bryant RN - 10/03/2020 9:32 PM CSTQuintyrese Ag Jr. is a 35 year old male here today bib EMS with c/o malaise and generalized pain. Pt left AMA today from inpatient here at [facility]. Pt reports [employer] kicked patient out due to cough. Pt is A&Ox3, NAD noted. RR even/unlabored. Will continue to monitor. documented in this encounter Plan of Treatment Date Type Specialty Care Team Description 11/14/2020 Office Visit Thoracic Surgery Delvis Garcia MD [address] [phone] Name Type Priority Associated Diagnoses Date/Ti me EKG-12 LEAD ROUTINE HEART STATION STAT Weakness 020 2:36 AM ONCE BUILDING COMPONENTS DESIGNER VITAMIN B1 LAB Routine 10/04/2020 3:2 2 AM (THIAMINE), WHOLE BUILDING COMPONENTS DESIGNER BLOOD Name Type Priority Associated Diagnoses Order S chedule EKG-12 LEAD ROUTINE HEART STATION STAT Weakness ONCE fo r 1 ONCE Occurrences sta rting 10/04/2020 unti l 10/04/2020 CBC WITH DIFF LAB Routine EVERY 24 HOURS (START TIME ADJUSTABLE ) for 2 Occurrences starting 2019 until 0 HEPATIC FUNCTION LAB Routine EVERY 24 HO URS (START PANEL (27711) TIME ADJUSTABL E) for (ALB,T.PRO,BILI 1 Occurrence s T,BU/BC,ALT,AST,ALK starting 10/05/2020 PHOS) until 0 MAGNESIUM LAB Routine EVERY 24 HOURS (START TIME ADJUSTABLE ) for 1 Occurrences starting 2019 until 0 PROTHROMBIN TIME / LAB Routine EVERY 24 HOURS (START INR TIME ADJUSTABLE ) for 5 Occurrences starting 2019 until 0 POCT GLUCOSE(AGE LAB Routine EVERY 6 ALFIE RS (START >30DAYS) TIME ADJUSTABLE ) START TIME ADJU STABLE for 2 Days star ting 10/04/2020 unti l 10/05/2020 VITAMIN B1 LAB Routine ONCE for 1 (THIAMINE), WHOLE Occurrence s starting BLOOD 10/04/2020 unti l 10/04/2020 Health Maintenance Due Date Last Done Comments VARICELLA VACCINES (1 of 2 - 2-dose childhood series) 1985 Depression Screening 1996 DTaP,Tdap,and Td Vaccines (1 - Tdap) 2003 PNEUMOCOCCAL 0-64 YEARS COMBINED SERIES (2 of 3 - 08/30/2021 08/30/2020 PCV13) INFLUENZA VACCINE Completed 08/30/2020 documented as of this encounter Procedures Procedure Name Priority Date/Time Associated Comments Diagnosis POCT GLUCOSE Routine 10/04/2020 6:54 Results for this (AUTOMATED) AM BUILDING COMPONENTS DESIGNER procedure are i n the results section. CBC WITH DIFF STAT 10/04/2020 6:23 Results fo r this AM BUILDING COMPONENTS DESIGNER procedure are i n the results section. PROTHROMBIN TIME / Routine 10/04/2020 3:22 Resul ts for this INR AM BUILDING COMPONENTS DESIGNER procedure are i n the results section. POCT GLUCOSE Routine 10/04/2020 2:58 Results for this (AUTOMATED) AM BUILDING COMPONENTS DESIGNER procedure are i n the results section. GALV/CLC ONLY - URINE STAT 10/04/2020 1:43 Achalasia Re sults for this DRUG (IMMUNOASSAY) - AM BUILDING COMPONENTS DESIGNER procedu re are in 4 ER PANEL the results section. COMP. METABOLIC PANEL STAT 10/03/2020 10:35 Achalasia Re sults for this (40149) PM BUILDING COMPONENTS DESIGNER procedure are i n the results section. MAGNESIUM Add-on 10/03/2020 10:35 Results for this PM BUILDING COMPONENTS DESIGNER procedure are i n the results section. PHOSPHORUS Add-on 10/03/2020 10:35 Results for this PM BUILDING COMPONENTS DESIGNER procedure are i n the results section. XR ABDOMEN ACUTE STAT 10/03/2020 10:25 Achalasia Results for this SERIES PM BUILDING COMPONENTS DESIGNER procedure are i n the results section. documented in this encounter Results POCT GLUCOSE (AUTOMATED) (10/04/2020 6:54 AM BUILDING COMPONENTS DESIGNER) Pathologist Sig nature POCT GLU 108 70 - 110 mg/dL [facility] Specimen Blood Performing Organization Address City/State/Zipcode Phone Number [facility] CLIA: [id number] [place] [address] [place] [address] CBC WITH DIFF (10/04/2020 6:23 AM BUILDING COMPONENTS DESIGNER) WBC 11.49 (H) 4.20 - 10.70 [facility] 10*3/L SERVICES RBC 3.77 (L) 4.26 - 5.52 [facility] 10*6/L SERVICES HGB 10.6 (L) 12.2 - 16.4 [facility] g/dL SERVICES HCT 31.9 (L) 38.4 - 49.3 % [facility] SERVICES MCV 84.6 81.7 - 95.6 [facility] fL SERVICES MCH 28.1 26.1 - 32.7 [facility] pg SERVICES MCHC 33.2 31.2 - 35.0 [facility] g/dL SERVICES RDW-SD 43.8 38.5 - 51.6 [facility] fL SERVICES RDW-CV 14.2 12.1 - 15.4 % [facility] SERVICES PLT 42 (LL) 150 - 328 [facility] 10*3/L SERVICES MPV 11.1 9.8 - 13.0 fL [facility] SERVICES IPF % 10.0Comment: 1.2 - 10.7 % [facility] Platelet count SERVICES measured by fluorescence method. NRBC/100 WBC 0.0 0.0 - 10.0 [facility] /100 WBCs SERVICES NRBC x10^3 <0.01 10*3/L [facility] SERVICES GRAN MAT (NEUT) % 78.1 % [facility] SERVICES IMM GRAN % 0.30 % [facility] SERVICES LYMPH % 19.0 % [facility] SERVICES MONO % 2.5 % [facility] SERVICES EOS % 0.0 % [facility] SERVICES BASO % 0.1 % [facility] SERVICES GRAN MAT 8.97 (H) 1.99 - 6.95 [facility] x10^3(ANC) 10*3/uL SERVICES IMM GRAN x10^3 0.04 0.00 - 0.06 [facility] 10*3/uL SERVICES LYMPH x10^3 2.18 1.09 - 3.23 [facility] 10*3/uL SERVICES MONO x10^3 0.29 (L) 0.36 - 1.02 [facility] 10*3/uL SERVICES EOS x10^3 <0.03 (L) 0.06 - 0.53 [facility] 10*3/uL SERVICES BASO x10^3 <0.03 0.01 - 0.09 [facility] 10*3/uL SERVICES BANDS Increased (A) [facility] SERVICES Specimen Blood - LINE, VENOUS Performing Organization Address City/[facility] Phone Number [facility] CLIA: [id number] [place] [address] [place] [address] PROTHROMBIN TIME / INR (10/04/2020 3:22 AM BUILDING COMPONENTS DESIGNER) Pathologist [facility] PROTIME PATIENT 12.6 10.1 - 12.6 [facility] Seconds SERVICES INR 1.1Comment: Normal [facility] INR <1.1; Warfarin SERVICES Therapeutic range 2.0 to 3.0 or 2.5 to 3.5, depending upon the indications. Specimen Blood - VENOUS Performing Organization Address City/[facility] Phone Number [facility] CLIA: [id number] [place] [address] [place] [address] POCT GLUCOSE (AUTOMATED) (10/04/2020 2:58 AM BUILDING COMPONENTS DESIGNER) Pathologist [facility] nature POCT GLU 62 (L) 70 - 110 mg/dL [facility] Specimen Blood Performing Organization Address City/[facility] Phone Number [facility] CLIA: [id number] [place] [address] [place] [address] DRUG SCREEN ER (URINE) (10/04/2020 1:43 AM BUILDING COMPONENTS DESIGNER) Pathologist [facility] AMPHET Negative Negative [facility] Cocaine Metabolite Negative Negative [facility] OPIATES Presumptive Negative [facility] Positive (A) SERVICES THC Negative Negative [facility] SERVICES Specimen Urine - URINE, CLEAN CATCH Narrative Performed At Urine Drug Cutoff Ranges [facility] Amphetamine: 1,000 ng/mL Cocaine: 150 ng/mL Opiates: 300 ng/mL Cannabinoids: 50 ng/mL The results are to be used only for medical (i.e., treatment) purposes. Unconfirmed screening results mus t not be used for non-medical purposes (e.g., employment adina ting, legal testing). Performing Organization Address City/State/Zipcode Phone Number [facility] CLIA: [id number] [place] [address] [phone] [address] [facility] PHOSPHORUS (10/03/2020 10:35 PM BUILDING COMPONENTS DESIGNER) PHOSPHORUS 2.4 (L)Comment: 2.5 - 5.0 mg/dL [facility] Slight hemolysis SERVICES Specimen Blood - VENOUS Performing Organization Address City/[facility]/Zipcode Phone Number [facility] CLIA: [id number] [place] [address] [phone] [address] [facility] MAGNESIUM (10/03/2020 10:35 PM BUILDING COMPONENTS DESIGNER) Pathologist Sig nature MAGNESIUM 1.8Comment: Slight 1.7 - 2.4 mg/dL [facility] hemolysis SERVICES Specimen Blood - VENOUS Performing Organization Address City/[facility] Phone Number [facility] CLIA: [id number] [place] [address] [place] [address] COMP. METABOLIC PANEL (48934) (10/03/2020 10:35 PM BUILDING COMPONENTS DESIGNER) NA 140 135 - 145 [facility] mmol/L SERVICES K 3.8 3.5 - 5.0 [facility] mmol/L SERVICES CL 108 98 - 108 mmol/L [facility] SERVICES CO2 TOTAL 25 23 - 31 mmol/L [facility] SERVICES AGAP 7 2 - 16 [facility] SERVICES BUN 22 7 - 23 mg/dL [facility] SERVICES GLUCOSE 38 (LL) 70 - 110 mg/dL [facility] SERVICES CREATININE 0.58 (L) 0.60 - 1.25 [facility] mg/dL SERVICES TOTAL BILI 0.8 0.1 - 1.1 mg/dL [facility] SERVICES CALCIUM 7.3 (L) 8.6 - 10.6 [facility] mg/dL SERVICES T PROTEIN 6.0 (L) 6.3 - 8.2 g/dL [facility] SERVICES ALBUMIN 2.8 (L) 3.5 - 5.0 g/dL [facility] SERVICES ALK PHOS 679 (H) 34 - 122 U/L [facility] SERVICES ALTv 387 (H) 5 - 50 U/L [facility] SERVICES AST(SGOT) 203 (H) 13 - 40 U/L [facility] SERVICES eGFR Calculation 158.5 mL/min/1.73m2 [facility] (Non- SERVICES Citizen Of [place]) eGFR Calculation 192.1 mL/min/1.73m2 [facility] () SERVICES Specimen Blood - VENOUS Narrative Performed At Association of Glomerular Filtration Rate (GFR) and St aging [facility] SERVICES of Kidney Disease* + [...] . Performing Organization Address City/State/Zipcode Phone Number [facility] CLIA: [id number] [place] [address] [place] [address] XR ABDOMEN ACUTE SERIES (10/03/2020 10:25 PM BUILDING COMPONENTS DESIGNER) Specimen Impressions Performed At PACS/VR/DOSE No acute intrathoracic or intra-abdomina l abnormality. 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 Please see pr ior report for more detailed description. Preliminary Report Dictated by Resident: Abel Rushing I, Deric Ivan MD., have reviewed this study and agree with the above report. Narrative Performed At PROCEDURE: XR ABDOMEN ACUTE SERIES PACS/VR/DOSE CLINICAL INDICATION: achalasia, rule out esophageal perforation COMPARISON: None FINDINGS: The lungs are well-expanded and clear without focal co nsolidation, pleural effusion, or pneumothorax. No subdiaphra gmatic free air. The cardiac silhouette is normal in size. No evidence of pneumomediastinum. The bowel gas pattern is nonobstructive. No radiopaque stones or abnormal calcifications are identified. No acute osseous abnormality. Procedure Note [facility] Radiant Results Inft User - 2019 12:12 PM BUILDING COMPONENTS DESIGNER PROCEDURE: XR ABDOMEN ACUTE SERIES CLINICAL INDICATION: achalasia, rule out esophageal perforation COMPARISON: None FINDINGS: The lungs are well-expanded and clear wi thout focal consolidation, pleural effusion, or pneumothorax. No subdiaphra gmatic free air. The cardiac silhouette is normal in size . No evidence of pneumomediastinum. The bowel gas pattern is nonobstructive. No radiopaque stones or abnormal calcifications are identified. No acute osseous abnormality. IMPRESSION No acute intrathoracic or intra-abdomina l abnormality. Bilateral osseous deformities of the pro ximal humeri, probably related to benign neoplastic process. Please see pr ior report for more detailed description. Preliminary Report Dictated by Resident: Abel Rushing I, Deric Ivan MD., have reviewed [facility] study and agree with the above report. Performing Organization Address City/State/Zipcode Phone Number PACS/VR/DOSE documented in this encounter Visit Diagnoses Diagnosis Achalasia - Primary Achalasia and cardiospasm Weakness Other malaise and fatigue Severe nausea and vomiting documented in this encounter Administered Medications Medication Order MAR Action Action Date Dose Rate Site D5W 0.45% NaCl (1/2NS) IV New Bag 10/04/2020 8:20 AM BUILDING COMPONENTS DESIGNER 1,000 mL 200 mL/hr infusion 1,000 mL at 200 mL/hr, 1,000 mL, IV Infusion, CONTINUOUS, Starting 10/04/20 at 0315, Until Discontinued, Routine New Bag 10/04/2020 3:18 AM BUILDING COMPONENTS DESIGNER 1,000 mL 200 mL/hr lidocaine (LIDODERM) 5 % (700 mg/patch) Given 10/04/2020 8:21 A M BUILDING COMPONENTS DESIGNER 1 Patch patch 1 Patch 1 Patch, Topical, Administer over 12 Hours, DAILY, First dose (after last modification) on 10/04/20 at 0900, Until Discontinued, Routine ondansetron (ZOFRAN (PF)) injection 4 mg Given 10/04/2020 4:46 AM BUILDING COMPONENTS DESIGNER 4 mg 4 mg, Slow IV Push, Q6HPRN, Starting 10/04/20 at 0234, Until Discontinued, Routine, Nausea and Vomiting (N/V) Medication Order MAR Action Action Date Dose Rate Site dextrose 10% (D10W) bolus Given 10/04/2020 12:36 AM BUILDING COMPONENTS DESIGNER 250 mL infusion 250 mL 250 mL, IV Infusion, ONCE, 10/04/20 at 0145, For 1 dose, Dextrose 10% 250 mL bag contains: 10 gm = 100 mL 20 gm = 200 mL 25 gm = 250 mL (whole bag) The maximum rate at which dextrose can be infused without producing glycosuria is 0.5 g/kg/hour. BUD: If wrapper is open bag is good for 30 days at room temperature. , FENTanyl PF (SUBLIMAZE (PF)) injection 25 Given 10/04/2020 12:27 AM BUILDING COMPONENTS DESIGNER 25 mcg mcg 25 mcg, Slow IV Push, ONCE, 1 dose, Tue10/03/20 at 2215, STAT NaCl 0.9% (NS) bolus infusion 1,000 Restarted 10/04/2020 1:08 A M BUILDING COMPONENTS DESIGNER 999 mL/hr mL at 999 mL/hr, 1,000 mL, IV Piggyback, ONCE, 1 dose, Tue10/03/20 at 2300, STAT documented in this encounter Insurance Payer Benefit Plan / Subscriber ID Effective Phone Address T ype Group Dates MEDICAID MEDICAID PENDING 2020-Pre [address] [place] [address] P[place] [address] documented as of this encounter
--- OUTSIDE RECORDS SUMMARY | 2020-10-05 14:13 | XMS REPORT | Summary of Care ---
:1985 Author Organization [facility] - Health Address [address] [place] [address] Care Team Providers Name Role Phone Pcp, Does Not Have A Primary Care Provider Reason for Visit Reason Comments Social Work Encounter Details Date Type Department Care Team Description 10/04/2020 Case Management [facility] Case Management and Roxann Gardner Social Work Utilization Review [address] [place] [phone] [place] [address] Allergies No Known Allergiesdocumented as of this encounter (statuses as of 10/04/2020) Medications No known medicationsdocumented as of this encounter (statuses as of 10/04/2020) Active Problems Problem Noted Date Severe nausea and vomiting 10/04/2020 Epigastric abdominal pain 10/02/2020 Abdominal pain 09/26/2020 E46 Unspecified severe protein-calorie malnutrition 1 10/25/2019 Dysphagia 08/24/2020 Hypokalemia 08/24/2020 Esophageal dysphagia 08/23/2020 Overview: Added automatically from request for gin [employer]ini [id number] Bipolar 1 disorder GERD (gastroesophageal reflux disease) [...] with No / Unsure 10/04/2020 2:21 PM SERVICE DELIVERY MANAGER someone who was confirmed or 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 documented as of this encounter Last Filed Vital Signs Not on filedocumented in this encounter Progress Notes Roxann Gardner - 10/04/2020 8:32 PM CSTSocial work Note TERRESTRIAL ECOLOGIST met with patient at ER [facility]. He reported that he went to [facility] after he left ED against medical advise. He said he was vomiting and [facility] sent him again to [facility] ER. The patient reported that he wanted to go Home, he said he doesn't have any body to pick him up. TERRESTRIAL ECOLOGIST provide a Taxi voucher [phone] to patient residence in [place]. TERRESTRIAL ECOLOGIST was able to talk to patient about resources in [facility]. He said he applied for Medicaidand [place] [facility] program 3 weeks ago. Patient also reported he is receiving services from [facility] for his mental health diagnosis. Patient reported he is having a procedure on 10/13/20 and said he has transportation arranged through family. Patient reported feeling exhausted and wanted to be home, patient was emotional and was able to talk about his emotions. TERRESTRIAL ECOLOGIST provided emotional support and hold space for patient to vent. Please consult TERRESTRIAL ECOLOGIST if other needs arise. Roxann Gardner LMSW Consumer Loan Underwriter Geriatrics ([facility] Department of Care Management Ambulatory Social Work documented in this encounter Plan of Treatment Date Type Specialty Care Team Description 11/14/2020 Office Visit Thoracic Surgery Delvis Garcia MD [address] [place] [address] [phone] Health Maintenance Due Date Last Done [...] ype Group Dates MEDICAID MEDICAID PENDING 2020-Pre [address] [place] [address] Pending [place] [id number] documented as of this encounter
--- OUTSIDE RECORDS SUMMARY | 2020-10-05 14:13 | XMS REPORT | Summary of Care ---
:1985 Author Organization [facility] Address [address] [place] [address] Care Team Providers Name Role Phone Pcp, Does Not Have A Primary Care Provider Reason for Referral Radiology Services (Routine) Status Reason Specialty Diagnoses / Referred By Referred To Procedures Contact Contact New Request Diagnostic Diagnoses Fall, initial encounter Erwin Pena, Radiology Procedures XR FOREARM 2 VW RIGHT [address] [place] [address] (Routine) Status Reason Specialty Diagnoses / Referred By Contact Refe rred To Procedures Contact New Request Cardiology Diagnoses Abdominal pain Erwin Pena MD Procedures ECHO ROUTINE W/DOPPLER COLOR ECHO ROUTINE W/DOPPLER COLOR [address] [place] [address] Phone: Radiology Services (STAT) Status Reason Specialty Diagnoses / Referred By Referred To Procedures Contact Contact New Request Diagnostic Diagnoses Nausea Weakness Chest pain, unspecified type Elevated LFTs Rolan Sawant Radiology Procedures US ABDOMEN LIMITED MD [place] [id number] [place] [address] Road [place] [phone] Radiology Services (STAT) Status Reason Specialty Diagnoses / Referred By Referred To Procedures Contact Contact New Request Diagnostic Diagnoses Nausea Weakness Chest pain, unspecified type Elevated LFTs Rolan Sawant Radiology Procedures XR ABDOMEN ACUTE SERIES MD [place] [address] [place] [address] [place] [phone] Reason for Visit Reason Comments Weakness Auth/Cert Status Reason Specialty Diagnoses / Referred By Referred To Procedures Contact Contact Emergency Medicine [facility] Dept [address] [place] [phone] Fax: Encounter Details Date Type Department Care Team Description 10/02/2020 - [facility] Medicine ([address]) Rolan Sawant MD [address] [place] [id number] Epigastric 10/03/2020 Encounter 712 [facility] Erwin Pena MD [address] [place] [phone] [place] [address] Allergies No Known Allergiesdocumented as of this encounter (statuses as of 10/03/2020) Medications Medication Sig Dispensed Refills Start Date End Date Status divalproex sodium Take by mouth. 0 Active (DEPAKOTE ORAL) sertraline HCl (ZOLOFT Take by mouth. 0 Active ORAL) guanfacine HCl (TENEX Take by mouth. 0 Active ORAL) nitroglycerin 0.[address] 1 tablet 90 tablet 2 08/30/2020 Active sublingual under the tongue tabletIndications: before meals. Achalasia of esophagus omeprazole 40 mg Take 1 capsule 30 capsule 2 08/30/2020 Active capsuleIndications: by mouth daily. Achalasia of esophagus ziprasidone (GEODON) 80 Take 80 mg by 0 Active mg capsule mouth 2 (two) times daily with meals. documented as of this encounter (statuses as of 10/03/2020) Active Problems Problem Noted Date Epigastric abdominal pain 10/02/2020 Abdominal pain 09/26/2020 E46 Unspecified severe protein-calorie malnutrition 1 10/25/2019 Dysphagia 08/24/2020 Hypokalemia 08/24/2020 Esophageal dysphagia 08/23/2020 Overview: Added automatically from request for gin gemini [id number] Bipolar 1 disorder GERD (gastroesophageal reflux disease) [...] Never Used Tobacco Cessation: Ready to Quit: No; Co unseling Given: Yes Comments: 1/2 pack/ day Education Answer Date Recorded What is the highest level of school you have High school [employer] 10/02/2020 completed or the highest degree you have received? Sex Assigned at Date Recorded Not on file COVID-19 Exposure Response Date Recorded In the last month, have you been in contact with No / Unsure 10/02/2020 10:32 PM BLENDING SUPERVISOR someone who was confirmed or 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 documented as of this encounter Last Filed Vital Signs Vital Sign Reading Time Taken Comments Blood Pressure 134/92 10/03/2020 12:14 PM BLENDING SUPERVISOR Pulse 67 10/03/2020 12:14 PM BLENDING SUPERVISOR Temperature 35.7 C (96.3 F) 10/03/2020 7:24 AM BLENDING SUPERVISOR Respiratory Rate 18 10/03/2020 12:14 PM BLENDING SUPERVISOR Oxygen Saturation 100% 10/03/2020 12:14 PM BLENDING SUPERVISOR Inhaled Oxygen - - Concentration Weight 49.4 kg (109 lb) 10/02/2020 10:36 unable to gerhard d, bed PM BLENDING SUPERVISOR weight is Lo.109 lb in ER Height 165.1 cm (5' 5") 10/02/2020 10:36 PM BLENDING SUPERVISOR Body Mass Index 18.14 10/02/2020 10:36 PM BLENDING SUPERVISOR documented in this encounter Progress Notes Dixie Smith RN - 10/03/2020 4:23 PM BLENDING SUPERVISOR Care Management Discharge Disposition Note (DCDN) 5-2-1 Interventions: Disease specific education;Intensive medication reconciliation/management;Cleardischarge plan;Follow-up appointments;Teach back 5-2-1 Providers: Nurse;Physician;Circuit Recorder/Call Center Specialist 5-2-1 Patient Capacity Improvements: Transportation arrangements Discharge Plan for ongoing care and services: Patient Choice completed for referred services: Discussed with patient/patients family involved in decision making: Patient's family or support contact: Discharge Plan: Receiving facility was provided the following clinical documentation at discharge- CM Facesheet, Consult notes, Labs, Progress Notes, MAR: DME location: Other DME location: [facility] Medical Equipment: Home Health location: Discharge location(s): Community resources/referrals made or provided to patient: Resources/Referrals: Mental Status: Alert & Oriented to Person,Place & Time Psychosocial issues and/or concerns resulting in patient being a high risk for re-admission: Lack offunding Manage ADL indepentdly: Yes Living Arrangement: Home(DISCHARGING TO [facility]) Other living arrangement: Address of living arrangement: [address] [place] [address] Funding Resources: Self Pay [facility] Nursing informed of discharge plan: No CHP referral sent? No CM medication request completed (if appropriate): No PCP: No Transportation: Taxi Prior authorization obtained for ambulance: Authorization number: CPT code: Discharge Medications Will the patient be able to obtain his medications? Yes Does the patient have transportation to to obtain the prescription medications? Yes CM Medication Request completed (if appropriate): Yes Name of RN informed: JEREMY Expected discharge date: 10/03/2020 Time: Afternoon [30] Additional Information: CM/SW Name & Contact number: Dixie Smith RN Ph. [phone] The following information has been provided to the facility noted above: reason for the patient discharge or transfer; patients physical and psychosocial status; summary of care, treatment, servicesprovided to patient; and the patient progress toward goals. ixie Smith RN - 10/03/2020 9:32 AM CSTOf note- patient readmitted due to non compliance and left AMA. Care Management Social Functional Assessment Patient Name: Tahir Ag JrYanira Age: [age] year old Sex: male Patient's Previous Admission Date at [facility]: 09/26/2020 Current diagnosis and co-morbidities: Epigastric Abdominal Pain Readmission Questions: Was patient discharged from any acute care hospital within the last 30 days: Yes Were all questions regarding previous illness/diagnosis answered prior to discharge: Yes Did you have any difficulties with your discharge instructions: (AMA) Were you able to go to your follow-up discharge appointments: (AMA and returned 1hr later.) Any difficulties after discharge with medications: (left AMA and returned 1hr later) Any difficulties after discharge with transportation: No Any difficulties after discharge with physical conditions, support, or other limitations?: No Did patient refuse services that were recommended on the previous admission: Yes If yes, comments: liquid diet recomended, left AMA and went to [employer]. Was patient non-compliant with the previously recommended treatment: Yes If yes, comments: liquid diet recomended, left AMA and went to [employer]. If admitted from the ED did you call your primary MD or place a sick call/request with your provider?: No Social Functional Assessment: Primary language spoken/preferred: Persian Mental Status: Alert & Oriented to Person,Place & Time Information given by: Self Patient's support system: Parent Name and number of support system: Shantel Ag (Mother) [phone]; Tristan Ag (Father) [phone] Primary Barrel Tester: Self MPOA: No Living Arrangement: Home Address of living arrangement : [address] [place] [address] Persons living in home: Same as support system;Self Baseline functional status- ambulation: Independent Functional status-baseline personal care: Independent Baseline functional status- driving: Independent Baseline functional status- grocery shopping: Independent Functional status-baseline housekeeping: Independent Functional status-baseline meal prep: Independent Current functional status same as prior: Yes Do you have a PCP?: No Home Health Care Agency: No Provider Services: No DME Company: No Equipment: None Hemodialysis: No Funding Resources: Self Pay Prescription coverage plan: Self Pay Pharmacy where meds are filled: [facility]) Additional Recommendations for DC: will need taxi Additional info required for discharge planning: Pending medical evaluation Recommended discharge plan: Home SFA Complete: Social Functional Assessment complete: Yes Alcohol Use Screening (AUDIT-C) How often do you have a drink containing alcohol?: Never SCORE: 0 Role of Care Management explained. Dixie Smith RN (Allie)-BSN Land Leasing Examiner [facility] Care Management Office: [phone] [email or web address] DING SUPERVISOR documented in this encounter H&P Notes Gianni Dumont MD - 10/02/2020 8:03 PM CST ARCHANA JAFFE TEAM H&P PCP: PATIENT DOES NOT HAVE A PCP Date of Service: 10/02/2020 CHIEF COMPLAINT: Nausea/vomitting; weakness HISTORY OF PRESENT ILLNESS Tahir Ag Jr. is a 35 year old malewith PMH of bipolar 1, schizophrenia, and achalasiawho left AMA earlier this afternoon after refusing to adhere to liquid diet. Says he started having n/v after eating at [employer] with weakness so came back to ED. Apologized for "being stupid" and no longer requesting solid foods. Still having some nausea and some pain in throat. Denied any CP, f/c, SOB, cough, abdominal pain. Denied any illicit drug use while he was out of hospital. In ED, VSS and afebrile. Glucose 46 which improved with amp of d10. Liver enzymes elevated but down trending from previous. Lipase elevated at 845; RUQ US with biliary sludge and normal pancreas and KUB normal. Patient transferred to the floor for further management. PMH: Past Medical History: Diagnosis Date Bipolar 1 disorder GERD (gastroesophageal reflux disease) Manic affective disorder with recurrent episode Schizophrenia PSH: denied any surgical hx SocHx: h/o cocaine and marijuana abuse FMH: no significant family hx ALLERGIES No Known Allergies MEDICATIONS Current Facility-Administered Medications Medication Dose Route Frequency Last Rate Last Admin morpHINE injection 4 mg 4 mg Slow IV Push ONCE Stopped at 10/02/20 1850 ondansetron (ZOFRAN (PF)) injection 4 mg 4 mg Slow IV Push ONCE Stopped at 10/02/20 1800 Current Outpatient Medications Medication Sig Dispense Refill [...] of breath, (-) dyspnea on exertion Cardio: (-) chest pain, (-) palpitations GI: (+) nausea, (+) vomiting, (-) abdominal pain, (-) diarrhea, (-) constipation, (-) melena : (-) dysuria, (-) hematuria Endo: (-) heat intolerance, (-) diabetes Neuro: (-) numbness, (-) tingling Back: (-) pain, (-)spasms MS: (-) muscle pain, (-) joint pain Psych: (+) psychiatric disorder PHYSICAL EXAMINATION Vitals: 10/02/20 1618 10/02/20 1815 10/02/20 1853 BP: 121/85 114/72 114/72 Pulse: 89 68 68 Resp: Temp: 36.7 C (98.1 F) 36.7 C (98.1 F) TempSrc: Oral SpO2: 100% Weight: 49.8 kg (109 lb 12.6 oz) Constitutional: Patient alert & oriented x 3 [...] - reviewed As above ASSESSMENT/PLAN Tahir Ag JrYanira is a 35 year old male admitted to the hospital with: Achalasia Dysphagia Elevated lipase Acute Liver Injury - improving Thrombocytopenia Hypokalemia Hypoglycemia Severe Protein Calorie Malnutrition Risk For Refeeding Syndrome Hypophosphatemia Patient recently left AMA and returned with n/v and weakness after trying to eat [employer]. Liver enzymes down trending from previous. Repeat comprehensive UDS still in process from yesterday; will recheck ER panel UDS today as well given patient with h/o of frequent drug abuse and with suspicion ofdrug abuse when he leaves the hospital. Negative HBV PCR, HBcIgM, HAV IgM, HIV, LOYD; rest of liver failure w/u pending. Also with elevated lipase to 845 however patient denying any epigastric or RUQ although there is tenderness on exam. RUQ US with normal pancreas on portion that was visualized. Will be on continuous IVF anyway but doesn't clinically appear to have acute pancreatitis. - F/u GI recs -Pending infectious, autoimmune workup and UDS -Finished vitamin K for 3 days -Defer EGD Manometry during acute phase of liver injury. GI wanting towait 20days from positive COVID test prior to procedure. - on tele - Monitor urine output to ensure adequate hydration - D5 1/2NS 150 cc/hr - Continue to monitor glucose levels q6 as patient has been recurrently hypoglycemic - Monitor and replete lytes as needed - SCDs for DVT prophylaxis given thrombocytopenia - CLD Bipolar 1 and Schizophrenia Patient with previously noted psychiatric disorder. -C/w home Valproate IV as patientpatient with poor tolerance to PO PAIN: UncontrolledTramadol Prophylaxis: SCDs Code Status: Full Gianni Dumont PGY-3 Internal Medicine DING SUPERVISOR Associated attestation - Clarice Peoples MD - 10/02/2020 11:01 PM CSTI personally examined the patient on 10/02/[address] Dumont's resident H&P note as written. I actively participated in the decision- making process. Please see the resident's note for additional details. Clarice Peoples MD 10/02/2020 11:01 PM documented in this encounter ED Notes Micki Coburn RN - 10/02/2020 4:17 PM CSTQuintin Eric Ag . is a 35 year old male to ED for readmission. Pt reports he was inpt and left AMA from the floor approx 1 hour ago but is now feeling to weak. Pt was admitted for esophageal rupture. Pt denies current bleeding and pain. Patient thin and emaciated. Speaking well. Rolan De Anda MD - 10/02/2020 4:14 PM BLENDING SUPERVISOR [facility] Emergency Department Note Patient Name: Tahir Ag Jr. Date of : 1985 35 year old male Treatment Room: [address] [place] [address] Primary Care Physician: PATIENT DOES NOT HAVE A PCP Patient Escorted by: Self [9] Mode of Arrival: Personal means [1] EMS Treatment Prior to ED Arrival: Travel and Exposure Screening: Symptoms Does patient have any of these symptoms?: (not recorded) Exposure Screening Has patient had contact with someone with a communicable disease in the last month?: (not recorded) Diseases exposed to:: (not recorded) Is Patient ?: (not recorded) Exposure Date: (not recorded) Chief Complaint: Chief Complaint Patient presents with Weakness History of Present Illness: 35 year-old male signed out AMA 1 hr ago suspected dx of esophageal perforation on last admission, high LFTs. Says he uses cocaine but not in last 2 weeks. C/o weakness and chest pain, just like when he was in the hospital. Hx OD schizophrenia and esophageal achalasia History provided by: Medical records and patient Weakness Location: General Severity: Mild Onset quality: Unable to specify Timing: Constant Progression: Waxing and waning Chronicity: Chronic Associated symptoms: abdominal pain, chest pain and nausea Associated symptoms: no congestion, no cough, no diarrhea, no ear pain, no fatigue, no fever, no headaches, no loss of consciousness, no myalgias, no rash, no rhinorrhea, no shortness of breath, no sore throat, no vomiting and no wheezing Abdominal pain: Location: Epigastric Quality: aching Severity: Mild Onset quality: Gradual Timing: Constant Progression: Waxing and waning Chronicity: Recurrent Chest pain: Quality: aching Severity: Mild Onset quality: Unable to specify Timing: Constant Progression: Unchanged Chronicity: Recurrent Nausea: Severity: Mild Onset quality: Unable to specify Timing: Unable to specify Past Medical History/Immunizations: Past Medical History: Diagnosis Date Bipolar 1 disorder GERD (gastroesophageal reflux disease) Manic affective disorder with recurrent episode Schizophrenia Allergies: No Known Allergies Past Social History: Substance & Sexual Activity No substance use or sexual activity history on file. Past Surgical History: History reviewed. No pertinent surgical history. Review of Systems: Review of Systems Constitutional: Negative. Negative for fatigue and fever. HENT: Negative. Negative for congestion, ear pain, rhinorrhea and sore throat. Eyes: Negative. Respiratory: Negative. Negative for cough, shortness of breath and wheezing. Breasts: Negative. Cardiovascular: Positive for chest pain. Negative for palpitations and leg swelling. Gastrointestinal: Positive for abdominal pain and nausea. Negative for abdominal distention, anal bleeding, blood in stool, constipation, diarrhea, rectal pain and vomiting. Genitourinary: Negative. Negative for flank pain. Musculoskeletal: Negative for arthralgias, back pain and myalgias. Skin: Negative. Negative for rash. Neurological: Positive for weakness. Negative for dizziness, tremors, loss of consciousness, syncope, speech difficulty, light-headedness, numbness and headaches. Psychiatric/Behavioral: Negative. All other systems reviewed and are negative. Endocrine: Endocrine negative Physical Exam: ED Triage Vitals [10/02/20 1618] Weight 49.8 kg (109 lb 12.6 oz) Actual or estimated Height BP 121/85 Pulse 89 Resp 20 Temp 36.7 C (98.1 F) Temp source Oral SpO2 Measured on Physical Exam Vitals signs and nursing note reviewed. Constitutional: General: He is awake. He is not in acute distress. Appearance: Normal appearance. He is well-developed. He is not ill-appearing, toxic-appearing or diaphoretic. HENT: Head: Normocephalic and atraumatic. No Enriquez's sign. Jaw: There is normal jaw occlusion. No trismus. Right Ear: Hearing and external ear normal. Left Ear: Hearing and external ear normal. Nose: Nose normal. No congestion or rhinorrhea. Mouth/Throat: Lips: [place]. Mouth: Mucous membranes are moist. No injury or lacerations. Tongue: No lesions. Tongue does not deviate from midline. Palate: No mass and lesions. Pharynx: Oropharynx is clear. Uvula midline. No posterior oropharyngeal erythema. Tonsils: No tonsillar exudate or tonsillar abscesses. Eyes: General: Lids are normal. Extraocular Movements: Right eye: Normal extraocular motion and no nystagmus. Left eye: Normal extraocular motion and no nystagmus. Conjunctiva/sclera: Conjunctivae normal. Pupils: Pupils are equal, round, and reactive to light. Neck: Musculoskeletal: Full passive range of motion without pain, normal range of motion and neck supple. Normal range of motion. No edema, erythema, neck rigidity, crepitus or injury. Thyroid: No thyroid mass, thyromegaly or thyroid tenderness. Vascular: Normal carotid pulses. No carotid bruit, hepatojugular reflux or JVD. Trachea: Trachea and phonation normal. No tracheal deviation. Cardiovascular: Rate and Rhythm: Normal rate and regular rhythm. Pulses: Carotid pulses are 0 on the right side and 0 on the left side. Heart sounds: Normal heart sounds. Pulmonary: Effort: Pulmonary effort is normal. No tachypnea, bradypnea, accessory muscle usage, prolonged expiration, respiratory distress or retractions. Breath sounds: Normal breath sounds and air entry. No stridor. No wheezing. Chest: Chest wall: No tenderness. Abdominal: General: Abdomen is flat. Bowel sounds are normal. Palpations: Abdomen is soft. Abdomen is not rigid. Tenderness: There is no abdominal tenderness. There is no right CVA tenderness, left CVA tenderness, guarding or rebound. Musculoskeletal: Cervical back: Normal. He exhibits normal range of motion. Thoracic back: Normal. Lumbar back: Normal. Right lower leg: Normal. He exhibits no bony tenderness and no swelling. Left lower leg: Normal. He exhibits no bony tenderness and no swelling. Lymphadenopathy: Cervical: No cervical adenopathy. Skin: General: Skin is warm and dry. Capillary Refill: Capillary refill takes less than 2 seconds. Findings: No abrasion or rash. Neurological: General: No focal deficit present. Mental Status: He is alert and oriented to person, place, and time. Mental status is at baseline. GCS: GCS eye subscore is 4. GCS verbal subscore is 5. GCS motor subscore is 6. Cranial Nerves: No cranial nerve deficit. Sensory: No sensory deficit. Motor: Motor function is intact. Coordination: Coordination is intact. Psychiatric: Attention and Perception: Attention and perception normal. Mood and Affect: Mood and affect normal. Speech: Speech normal. Behavior: Behavior normal. Behavior is cooperative. Thought Content: Thought content normal. Cognition and Memory: Cognition and memory normal. Judgment: Judgment normal. Radiology: Hospital Encounter on 10/02/20 US ABDOMEN LIMITED Narrative RIGHT UPPER QUADRANT ULTRASOUND HISTORY: epigastric pain COMPARISON: None. FINDINGS: LIVER: The liver is normal in size, contour and echotexture, measures 11.8 cm in craniocaudal dimension. No focal hepatic lesion. Normal hepatopetal flow within the main portal vein. The main portal vein measures 0.9 cm. GALLBLADDER: Layering biliary sludge is seen within the gallbladder. No cholelithiasis, pericholecystic fluid, or gallbladder distention. The gallbladder wall measures 0.2 cm. No sonographic Calle's sign. The common bile duct measures 0.2 cm. PANCREAS: The visualized portions of the pancreas appear normal. RIGHT KIDNEY: The visualized portion of the right kidney is unremarkable. The suprarenal abdominal aorta measures 1.6 cm in AP diameter. Impression Biliary sludge without evidence of cholelithiasis or acute cholecystitis. Preliminary Report Dictated by Resident: Rell Lyons XR ABDOMEN ACUTE SERIES Narrative XR ABDOMEN ACUTE SERIES COMPARISON: Concurrently obtained and separately dictated right upper quadrant ultrasound HISTORY: chest pain, nausea FINDINGS: The lungs are clear with no focal consolidation. No pleural effusion or pneumothorax is present. The heart is normal in size. A paucity of bowel gas is present with small amount of intermixed gas and stool in the right colon. No evidence of free subdiaphragmatic air is present. No abnormal calcifications, radiopaque stones or masses are identified. Bilateral humeral pediculated outgrowth arising from the proximal metadiaphysis, which is contiguous with the medullary cavity, in keeping with humeral osteochondroma. No acute osseous abnormality. Impression No acute abnormality identified in the chest, abdomen, or pelvis on radiographs. Nonspecific bowel gas pattern. Preliminary Report Dictated by Resident: Rell Lyons Lab Results (24h): Recent Results (from the past 24 hour(s)) POCT GLUCOSE (AUTOMATED) Collection Time: 10/02/20 12:17 AM Result Value Ref Range POCT GLU 79 70 - 110 mg/dL PHOSPHORUS Collection Time: 10/02/20 6:12 AM Result Value Ref Range PHOSPHORUS 1.4 (L) 2.5 - 5.0 mg/dL MAGNESIUM Collection Time: 10/02/20 6:12 AM Result Value Ref Range MAGNESIUM 1.8 1.7 - 2.4 mg/dL COMP. METABOLIC PANEL (82224) Collection Time: 10/02/20 6:12 AM Result Value Ref Range NA 136 135 - 145 mmol/L K 3.6 3.5 - 5.0 mmol/L CL 101 98 - 108 mmol/L CO2 TOTAL 28 23 - 31 mmol/L AGAP 7 2 - 16 BUN 9 7 - 23 mg/dL GLUCOSE 69 (L) 70 - 110 mg/dL CREATININE 0.47 (L) 0.60 - 1.25 mg/dL TOTAL BILI 1.2 (H) 0.1 - 1.1 mg/dL CALCIUM 7.3 (L) 8.6 - 10.6 mg/dL T PROTEIN 6.8 6.3 - 8.2 g/dL ALBUMIN 3.2 (L) 3.5 - 5.0 g/dL ALK PHOS 950 (H) 34 - 122 U/L ALTv 550 (H) 5 - 50 U/L AST(SGOT) 432 (H) 13 - 40 U/L eGFR Calculation (Non-) 202.1 mL/min/1.73m2 eGFR Calculation () 244.9 mL/min/1.73m2 FERRITIN SERUM Collection Time: 10/02/20 6:12 AM Result Value Ref Range FERRITIN 618.0 (H) 18.0 - 464.0 ng/mL PROTHROMBIN TIME / INR Collection Time: 10/02/20 12:24 PM Result Value Ref Range PROTIME PATIENT 12.0 10.1 - 12.6 Seconds INR 1.1 CBC WITH DIFF Collection Time: 10/02/20 12:24 PM Result Value Ref Range WBC 9.77 4.20 - 10.70 10*3/L RBC 4.72 4.26 - 5.52 10*6/L HGB 13.1 12.2 - 16.4 g/dL HCT 39.8 38.4 - 49.3 % MCV 84.3 81.7 - 95.6 fL MCH 27.8 26.1 - 32.7 pg MCHC 32.9 31.2 - 35.0 g/dL RDW-SD 43.3 38.5 - 51.6 fL RDW-CV 14.2 12.1 - 15.4 % PLT 51 (L) 150 - 328 10*3/L MPV 13.6 (H) 9.8 - 13.0 fL IPF % 10.4 1.2 - 10.7 % NRBC/100 WBC 0.0 0.0 - 10.0 /100 WBCs NRBC x10^3 <0.01 10*3/L GRAN MAT (NEUT) % 73.8 % IMM GRAN % 0.30 % LYMPH % 22.9 % MONO % 2.8 % EOS % 0.1 % BASO % 0.1 % GRAN MAT x10^3(ANC) 7.21 (H) 1.99 - 6.95 10*3/uL IMM GRAN x10^3 0.03 0.00 - 0.06 10*3/uL LYMPH x10^3 2.24 1.09 - 3.23 10*3/uL MONO x10^3 0.27 (L) 0.36 - 1.02 10*3/uL EOS x10^3 <0.03 (L) 0.06 - 0.53 10*3/uL BASO x10^3 <0.03 0.01 - 0.09 10*3/uL IVAN CELLS 2+ (A) (none) Basic Metabolic Panel (NA, K, CL, CO2, GLUCOSE, BUN, CREATININE, CA) Collection Time: 10/02/20 5:11 PM Result Value Ref Range NA 138 135 - 145 mmol/L K 3.2 (L) 3.5 - 5.0 mmol/L CL 102 98 - 108 mmol/L CO2 TOTAL 31 23 - 31 mmol/L AGAP 5 2 - 16 BUN 15 7 - 23 mg/dL GLUCOSE 46 (LL) 70 - 110 mg/dL CREATININE 0.77 0.60 - 1.25 mg/dL CALCIUM 7.8 (L) 8.6 - 10.6 mg/dL eGFR Calculation (Non-) 114.3 mL/min/1.73m2 eGFR Calculation () 138.5 mL/min/1.73m2 Hepatic Function Panel (ALB, T.PRO, BILI T, BU/BC, ALT, AST, ALK PHOS) Collection Time: 10/02/20 5:11 PM Result Value Ref Range TOTAL BILI 1.2 (H) 0.1 - 1.1 mg/dL BILI UNCON 1.1 0.1 - 1.1 mg/dL BILI CONJ 0.0 0.0 - 0.3 mg/dL T PROTEIN 7.4 6.3 - 8.2 g/dL ALBUMIN 3.6 3.5 - 5.0 g/dL ALK PHOS 973 (H) 34 - 122 U/L ALTv 539 (H) 5 - 50 U/L AST(SGOT) 368 (H) 13 - 40 U/L Lipase Serum Collection Time: 10/02/20 5:11 PM Result Value Ref Range LIPASE 845 (H) 0 - 220 U/L Troponin I Collection Time: 10/02/20 5:11 PM Result Value Ref Range TROPONIN I 0.022 <=0.034 ng/mL N-TERMINAL PRO-BNP Collection Time: 10/02/20 5:11 PM Result Value Ref Range NT-proBNP 1,660 (H) <=125 pg/mL Orders and Treatments: Orders Placed This Encounter Procedures XR ABDOMEN ACUTE SERIES US ABDOMEN LIMITED Basic Metabolic Panel (NA, K, CL, CO2, GLUCOSE, BUN, CREATININE, CA) Hepatic Function Panel (ALB, T.PRO, BILI T, BU/BC, ALT, AST, ALK PHOS) Lipase Serum Troponin I N-TERMINAL PRO-BNP COVID-19 (ID NOW RAPID TESTING) DRUG SCREEN ER (URINE) Orders Placed This Encounter Medications ondansetron (ZOFRAN (PF)) injection 4 mg dextrose 10% (D10W) bolus infusion 250 mL ED COURSE 6:07 PM Admitted via medicine service, Dr Peoples phone consultation MDM: Coding Scoring Tools: No data recorded Diagnosis/Impression: ICD-10-CM ICD-9-CM 1. Nausea R11.0 787.02 2. Weakness R53.1 780.79 3. Chest pain, unspecified type R07.9 786.50 4. Elevated LFTs R79.89 790.6 5. History of cocaine abuse F14.11 305.63 6. Hypoglycemia E16.2 251.2 7. Achalasia K22.0 530.0 8. Biliary sludge determined by ultrasound K83.8 576.8 Disposition/Condition: ED Disposition None Discharge Medications: Patient's [...] medications on file Follow-up: Electronically signed by: Rolan Sawant MD 10/02/2020 4:49 PM DING SUPERVISOR documented in this encounter Miscellaneous Notes Care Plan - Enedina Sanchez RN - 10/03/2020 12:29 PM BLENDING SUPERVISOR Problem: Pain Goal: Control of pain at or below patient's documented comfort goal Outcome: Progressing as expected Goal: Reduction in pain sensation Outcome: Progressing as expected Problem: Falls, Risk of Goal: Absence of falls Outcome: Progressing as expected Problem: Skin integrity Impaired (Risk or Actual) Goal: Prevention of new skin breakdown Outcome: Progressing as expected Problem: Nausea/Vomiting Goal: Absence of nausea/vomiting Outcome: Progressing as expected DING SUPERVISOR Nursing Note - Enedina Sanchez RN - 10/03/2020 12:[address]At approximately [address]10 [address]. Otoole approached and stated Narcan had been ordered for patient and should be given. At 1114 patient given Narcan, slow IV push. Patients blood sugar was also checked and was88. After a few minutes the patient was more alert and asked that his sock with his money be placed in the drawer. Patient more alert and talkative, he requested a warm blanket and it was provided. DING SUPERVISOR Nursing Note - Wei Ely RN - 10/03/2020 3:00 AM CSTAt 0245 assisted the patient to sit in the chair for urination, call light with in reach. patient verbalize understanding to press the call light when he done, RN went to get specimen cup to collect urine. Upon came back found the patient lying in the bed. Patient requested pain medication. Urine collected for drug screen. That time patient said he had a fall and he hit his Lt elbow, Assessment doneand didn't find any new bruising, redness or skin tear. Notified Dr. Jenkins are Plan - Wei Ely RN - 10/03/2020 2:46 AM BLENDING SUPERVISOR Problem: Pain Goal: Control of pain at or below patient's documented comfort goal Outcome: Progressing as expected Goal: Reduction in pain sensation Outcome: Progressing as expected Problem: Falls, Risk of Goal: Absence of falls Outcome: Progressing as expected Problem: Skin integrity Impaired (Risk or Actual) Goal: Prevention of new skin breakdown Outcome: Progressing as expected ursing Note - Wei Ely RN - 10/02/2020 11:23 PM CSTPaged resource RN for a new PIV D Nurse Note - Tomeka Carlin RN - 10/02/2020 9:45 PM CSTPt to 1036 at this time via [facility] Respirations even and unlabored, AAOx4, NADnoted. D Nurse Note - Kalpana Rae RN - 10/02/2020 9:20 PM CSTReport to [facility], transport ordered D Nurse Note - Tomeka Carlin RN - 10/02/2020 8:43 PM BLENDING SUPERVISOR Patient eating grocery store rotisserie chicken. Patient has been informed multiple times he should not be eating or drinking due to complaints of nausea. Patient noted eating chicken and then reporting nausea and having 1 episode of vomiting. Patient requesting to go to [facility]. Informed patient once again he should not be eating or drinking. ER MD notified. D Nurse Note - Kalpana Rae RN - 10/02/2020 8:35 PM CSTPatient vomited annalisa ARENAS at bedside to reiterate NPO while in ER D Nurse Note - Kalpana Rae RN - 10/02/2020 8:30 PM CSTAttempt to call report answering states receiving can't take report right now and will call back D Nurse Note - Kalpana Rae RN - 10/02/2020 7:[address] IV, patient with multiple stick sites noted, patient states has been poked dozens of times. Patient admits also shooting drugs, noted veins are sclerosed D Nurse Note - Rossy Bruner RN - 10/02/2020 7:08 PM CSTReport to Marii MACK. Pt resting in NAD. Pt removed US PIV to L arm. 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 Patient made aware that unable to give pain medications until new PIV is established D Nurse Note - Rossy Bruner RN - 10/02/2020 6:40 PM CSTPOCT BG 126 D Nurse Note - Alisa Nguyễn RN - 10/02/2020 5:58 PM BLENDING SUPERVISOR Tahir Ag Jr. is a 35 year old male presenting to ED with c/o vomiting and pain. Patient was admitted to hospital and reports leaving AMA about 1 hour [employer]. Patient states "i thought i was better and was ready to leave". Patient reports that upon leaving, he started feeling bad again so he ca me back. Upon arrival, patient vomiting and reports pain. VSS. Respirations even and unlabored. Lungsounds clear bilaterally. Bowel sounds normoactive in all 4 quadrants. Bed locked and in lowest position with call gandara within reach. DING SUPERVISOR documented in this encounter Plan of Treatment Date Type Specialty Care Team Description 11/14/2020 Office Visit Thoracic Surgery Delvis Garcia MD [address] [address] [phone] Name Type Priority Associated Diagnoses Date/Ti me EKG-12 LEAD ROUTINE ONCE HEART STATION STAT Nausea 10/02/2020 4:56 Weakness PM BLENDING SUPERVISOR Chest pain, unspecified type Elevated LFTs LAB ONLY COVID LAB Routine Nausea 10/02/2020 6:06 INTERPRETATION Weakness PM BLENDING SUPERVISOR Chest pain, unspecified type Elevated LFTs URINE DRUG (LCMSMS) - LAB STAT Nausea 10/03/2020 2:53 SYNTHETIC OPIATES PANEL Weakness AM BLENDING SUPERVISOR Chest pain, unspecified type Elevated LFTs URINE DRUG (LCMSMS) - LAB STAT Nausea 10/03/2020 2:53 OPIATES PANEL Weakness AM BLENDING SUPERVISOR Chest pain, unspecified type Elevated LFTs DIFF CONSULT BY LAB Add-on 10/03/2020 5:38 PATHOLOGIST AM BLENDING SUPERVISOR DIFF CONSULT LAB ONLY Routine 10/03/2020 5:3 8 INTERPRETATION AM BLENDING SUPERVISOR Name Type Priority Associated Diagnoses Order S chedule EKG-12 LEAD ROUTINE HEART STATION STAT Nausea ONCE for 1 ONCE Weakness Occurrences Chest pain, starting 2019 unspecified type until 10/02/2020 Elevated LFTs LAB ONLY COVID LAB Routine Nausea ONCE for 1 INTERPRETATION Weakness Occurrences Chest pain, starting 2019 unspecified type until 10/02/2020, 1 Elevated LFTs completed CBC WITH DIFF LAB Routine EVERY 24 HOURS (START TIME ADJUSTABLE) for 3 Occurrences starting 2019 until 0, 1 completed MAGNESIUM LAB Routine EVERY 24 HOURS (START TIME ADJUSTABLE) for 2 Occurrences starting 2019 until 0, 1 completed PROTHROMBIN TIME / INR LAB Routine EVERY 24 HOURS (START TIME ADJUSTABLE) for 6 Occurrences starting 2019 until 0, 1 completed HEPATIC FUNCTION PANEL LAB Routine EVERY 24 HOURS (72483) (ALB,T.PRO,BILI (STA RT TIME T,BU/BC,ALT,AST,ALK ADJUSTAB LE) for 2 PHOS) Days starting 10/03/2020 unti l 10/04/2020, 1 completed EKG-12 LEAD ROUTINE HEART STATION STAT Weakness ONCE fo r 1 ONCE Occurrences starting 2019 until 0 URINE DRUG (LCMSMS) - LAB Routine Nausea ONCE for 1 SYNTHETIC OPIATES PANEL Weakness Occurrences Chest pain, starting 2019 unspecified type until 10/03/2020, 1 Elevated LFTs completed URINE DRUG (LCMSMS) - LAB Routine Nausea ONCE for 1 OPIATES PANEL Weakness Occurrences Chest pain, starting 2019 unspecified type until 10/03/2020, 1 Elevated LFTs completed VITAMIN B1 (THIAMINE), LAB Routine ONCE for 1 WHOLE BLOOD Occurrences starting 2019 until 0 DIFF CONSULT BY LAB Add-on ONCE for 1 PATHOLOGIST Occurrences starting 2019 until 0 DIFF CONSULT LAB ONLY Routine ONCE for 1 INTERPRETATION Occurrences starting 2019 until 0, 1 completed Health Maintenance Due Date Last Done Comments VARICELLA VACCINES (1 of 2 - 2-dose childhood series) 1985 Depression Screening 1996 DTaP,Tdap,and Td Vaccines (1 - Tdap) 2003 PNEUMOCOCCAL 0-64 YEARS COMBINED SERIES (2 of 3 - 08/30/2021 08/30/2020 PCV13) INFLUENZA VACCINE Completed 08/30/2020 documented as of this encounter Procedures Procedure Name Priority Date/Time Associated Diagnosis Comme nts POCT GLUCOSE Routine 10/03/2020 11:19 Results for this (AUTOMATED) AM BLENDING SUPERVISOR procedure are i n the results section. XR FOREARM 2 VW Routine 10/03/2020 7:59 Fall, initial Results for this RIGHT AM BLENDING SUPERVISOR encounter procedure are i n the results section. PROTHROMBIN TIME / Routine 10/03/2020 5:38 Resul ts for this INR AM BLENDING SUPERVISOR procedure are i n the results section. CBC WITH DIFF Routine 10/03/2020 5:38 Results fo r this AM BLENDING SUPERVISOR procedure are i n the results section. HEPATIC FUNCTION Routine 10/03/2020 5:38 Results for this PANEL ([id number]) AM BLENDING SUPERVISOR procedure are in (ALB,T.PRO,BILI the results T,BU/BC,ALT,AST,ALK section. PHOS) FOLATE Add-on 10/03/2020 5:38 Results for this AM BLENDING SUPERVISOR procedure are i n the results section. VITAMIN B12, LEVEL Add-on 10/03/2020 5:38 Resul ts for this AM BLENDING SUPERVISOR procedure are i n the results section. MAGNESIUM Routine 10/03/2020 5:38 Results for this AM BLENDING SUPERVISOR procedure are i n the results section. PHOSPHORUS Routine 10/03/2020 5:38 Results for this AM BLENDING SUPERVISOR procedure are i n the results section. GALV/CLC ONLY - STAT 10/03/2020 2:53 Nausea Results for this URINE DRUG AM BLENDING SUPERVISOR Weakness procedure are in (IMMUNOASSAY) - 4 ER Chest pain, the res ults PANEL unspecified type section. Elevated LFTs POCT GLUCOSE Routine 10/03/2020 12:05 Results for this (AUTOMATED) AM BLENDING SUPERVISOR procedure are i n the results section. POCT GLUCOSE Routine 10/02/2020 10:55 Results for this (AUTOMATED) PM BLENDING SUPERVISOR procedure are i n the results section. POCT GLUCOSE Routine 10/02/2020 6:50 Results for this (AUTOMATED) PM BLENDING SUPERVISOR procedure are i n the results section. COVID-19 (ID NOW STAT 10/02/2020 6:06 Nausea Results for this RAPID TESTING) PM BLENDING SUPERVISOR Weakness procedure are in Chest pain, the results unspecified type section. Elevated LFTs US ABDOMEN LIMITED STAT 10/02/2020 5:44 Nausea Results for this PM BLENDING SUPERVISOR Weakness procedure are in Chest pain, the results unspecified type section. Elevated LFTs XR ABDOMEN ACUTE STAT 10/02/2020 5:27 Nausea Results for this SERIES PM BLENDING SUPERVISOR Weakness procedure are in Chest pain, the results unspecified type section. Elevated LFTs N-TERMINAL PRO-BNP STAT 10/02/2020 5:11 Nausea Results for this PM BLENDING SUPERVISOR Weakness procedure are in Chest pain, the results unspecified type section. Elevated LFTs BASIC METABOLIC STAT 10/02/2020 5:11 Nausea Results for this PANEL (NA, K, CL, PM BLENDING SUPERVISOR Weakness procedure are in CO2, GLUCOSE, BUN, Chest pain, the resul ts CREATININE, CA) unspecified type section. Elevated LFTs HEPATIC FUNCTION STAT 10/02/2020 5:11 Nausea Results for this PANEL (86001) PM BLENDING SUPERVISOR Weakness procedure are in (ALB,T.PRO,BILI Chest pain, the results T,BU/BC,ALT,AST,ALK unspecified type section. PHOS) Elevated LFTs TROPONIN I STAT 10/02/2020 5:11 Nausea Results for this PM BLENDING SUPERVISOR Weakness procedure are in Chest pain, the results unspecified type section. Elevated LFTs LIPASE STAT 10/02/2020 5:11 Nausea Results for this PM BLENDING SUPERVISOR Weakness procedure are in Chest pain, the results unspecified type section. Elevated LFTs documented in this encounter Results POCT GLUCOSE (AUTOMATED) (10/03/2020 11:19 AM BLENDING SUPERVISOR) [facility] nature POCT GLU 88 70 - 110 mg/dL [facility] Specimen Blood Performing Organization Address City/State/Zipcode Phone Number [facility] CLIA: [id number] [place] [address] [place] [address] XR FOREARM 2 VW RIGHT (10/03/2020 7:59 AM BLENDING SUPERVISOR) Specimen Impressions Performed At PACS/VR/DOSE No acute bony abnormality. Questionable soft tissue gas versus artifact over the anterior distal arm. Preliminary Report Dictated by Resident: Luanne Jones I, Eric Perez MD., have reviewed this study and a gree with the above report. Narrative Performed At EXAM: XR FOREARM 2 VW RIGHT PACS/VR/DOSE HISTORY: Fall; pain COMPARISON: None. FINDINGS: Radiographs of the right forearm demonst rate no acute fractures or dislocations. Joint spaces are preserved . Alignment is within normal limits. Soft tissue gas is suspected ove r the anterior distal arm. An IV line is projecting over the forearm. Radial head neck junction osteophyte formation causes a sclerotic ridge. Procedure Note [facility], Radiant Results Inft User - 2019 10:32 AM BLENDING SUPERVISOR EXAM: XR FOREARM 2 VW RIGHT HISTORY: Fall; pain COMPARISON: None. FINDINGS: Radiographs of the right forearm demonst rate no acute fractures or dislocations. Joint spaces are preserved . Alignment is within normal limits. Soft tissue gas is suspected ove r the anterior distal arm. An IV line is projecting over the forearm. Rad ial head neck junction osteophyte formation causes a sclerotic ridge. IMPRESSION No acute bony abnormality. Questionable soft tissue gas versus mauricio fact over the anterior distal arm. Preliminary Report Dictated by Resident: Luanne Jones I, Eric Perez MD., have reviewed [facility] study and agree with the above report. Performing Organization Address City/State/Zipcode Phone Number PACS/VR/DOSE FOLATE (10/03/2020 5:38 AM BLENDING SUPERVISOR) Pathologist [facility] FOLATE SER 5.5 3.0 - 20.0 ng/mL [facility] Specimen Blood - ARM, LEFT Performing Organization Address City/State/Zipcode Phone Number [facility] CLIA: [id number] [place] [address] [place] [address] VITAMIN B12, LEVEL (10/03/2020 5:38 AM BLENDING SUPERVISOR) Pathologist [facility] [place] VIT B12 >1000 (H) 240 - 930 pg/mL [facility] Specimen Blood - ARM, LEFT Narrative Performed At Biotin has been reported to cause a positive bias, int erpret [facility] results relative to patient's use of biotin. Performing Organization Address City/[facility]/Zipcode Phone Number [facility] CLIA: [id number] [place] [address] [place] [address] HEPATIC FUNCTION PANEL (67273) (ALB,T.PRO,BILI T,BU/BC,ALT,AST,ALK PHOS) (10/03/2020 5:38 AM BLENDING SUPERVISOR) Pathologist Sig [place] TOTAL BILI 0.8 0.1 - 1.1 mg/dL [facility] BILI UNCON 0.8 0.1 - 1.1 mg/dL [facility] BILI CONJ 0.0 0.0 - 0.3 mg/dL [facility] T PROTEIN 6.1 (L) 6.3 - 8.2 g/dL [facility] ALBUMIN 2.9 (L) 3.5 - 5.0 g/dL [facility] ALK PHOS 742 (H) 34 - 122 U/L [facility] ALTv 425 (H) 5 - 50 U/L [facility] AST(SGOT) 238 (H) 13 - 40 U/L [facility] Specimen Blood - ARM, LEFT Performing Organization Address [facility] Phone Number [facility] CLIA: [id number] [place] [address] [place] [address] PROTHROMBIN TIME / INR (10/03/2020 5:38 AM BLENDING SUPERVISOR) PROTIME PATIENT 12.2 10.1 - 12.6 [facility] Seconds SERVICES INR 1.1Comment: Normal [facility] INR <1.1; Warfarin SERVICES Therapeutic range 2.0 to 3.0 or 2.5 to 3.5, depending upon the indications. Specimen Blood - ARM, LEFT Performing Organization Address [facility] Phone Number [facility] CLIA: [id number] [place] [address] [place] [address] PHOSPHORUS (10/03/2020 5:38 AM BLENDING SUPERVISOR) Pathologist Sig nature PHOSPHORUS 2.0 (L) 2.5 - 5.0 mg/dL [facility] Specimen Blood - ARM, LEFT Performing Organization Address [facility] Phone Number [facility] CLIA: [id number] [place] [address] [place] [address] MAGNESIUM (10/03/2020 5:38 AM BLENDING SUPERVISOR) Pathologist Sig nature MAGNESIUM 1.8 1.7 - 2.4 mg/dL [facility] Specimen Blood - ARM, LEFT Performing Organization Address [facility] Phone Number [facility] CLIA: [id number] [place] [address] [place] [address] CBC WITH DIFF (10/03/2020 5:38 AM BLENDING SUPERVISOR) WBC 8.14 4.20 - 10.70 [facility] 10*3/L SERVICES RBC 3.77 (L) 4.26 - 5.52 [facility] 10*6/L SERVICES HGB 10.6 (L) 12.2 - 16.4 [facility] g/dL SERVICES HCT 32.0 (L) 38.4 - 49.3 % [facility] MCV 84.9 81.7 - 95.6 [facility] fL SERVICES MCH 28.1 26.1 - 32.7 [facility] pg SERVICES MCHC 33.1 31.2 - 35.0 [facility] g/dL SERVICES RDW-SD 43.8 38.5 - 51.6 [facility] fL SERVICES RDW-CV 14.2 12.1 - 15.4 % [facility] SERVICES PLT 39 (LL) 150 - 328 [facility] 10*3/L SERVICES MPV Comment: Not [facility] Measured SERVICES IPF % 10.0Comment: 1.2 - 10.7 % [facility] Platelet count SERVICES measured by fluorescence method. NRBC/100 WBC 0.0 0.0 - 10.0 [facility] /100 WBCs SERVICES NRBC x10^3 <0.01 10*3/L [facility] SERVICES GRAN MAT (NEUT) % 70.0 % [facility] IMM GRAN % 0.40 % [facility] LYMPH % 26.7 % [facility] MONO % 2.7 % [facility] EOS % 0.1 % [facility] BASO % 0.1 % [facility] GRAN MAT 5.70 1.99 - 6.95 [facility] x10^3(ANC) 10*3/uL SERVICES IMM GRAN x10^3 0.03 0.00 - 0.06 [facility] 10*3/uL SERVICES LYMPH x10^3 2.17 1.09 - 3.23 [facility] 10*3/uL SERVICES MONO x10^3 0.22 (L) 0.36 - 1.02 [facility] 10*3/uL SERVICES EOS x10^3 <0.03 (L) 0.06 - 0.53 [facility] 10*3/uL SERVICES BASO x10^3 <0.03 0.01 - 0.09 [facility] 10*3/uL SERVICES Specimen Blood - ARM, LEFT Performing Organization Address City/State/Zipcode Phone Number [facility] CLIA: [id number] [place] [address] [place] [address] DRUG SCREEN ER (URINE) (10/03/2020 2:53 AM BLENDING SUPERVISOR) AMPHET Negative Negative [facility] Cocaine Metabolite Negative Negative [facility] OPIATES Presumptive Negative [facility] Positive (A) SERVICES THC Negative Negative [facility] Specimen Urine - URINE, CLEAN CATCH Narrative Performed At Urine Drug Cutoff Ranges [facility] Amphetamine: 1,000 ng/mL Cocaine: 150 ng/mL Opiates: 300 ng/mL Cannabinoids: 50 ng/mL The results are to be used only for medical (i.e., treatment) purposes. Unconfirmed screening results mus t not be used for non-medical purposes (e.g., employment adina ting, legal testing). Performing Organization Address City/State/Zipcode Phone Number [facility] CLIA: [id number] [place] [address] [place] [address] POCT GLUCOSE (AUTOMATED) (10/03/2020 12:05 AM BLENDING SUPERVISOR) Pathologist Sig nature POCT GLU 94 70 - 110 mg/dL [facility] Specimen Blood Performing Organization Address [facility] Phone Number [facility] CLIA: [id number] [place] [address] [place] [address] POCT GLUCOSE (AUTOMATED) (10/02/2020 10:55 PM BLENDING SUPERVISOR) Pathologist Sig nature POCT GLU 54 (L) 70 - 110 mg/dL [facility] Specimen Blood Performing Organization Address [facility] Phone Number [facility] CLIA: [id number] [place] [address] [place] [address] POCT GLUCOSE (AUTOMATED) (10/02/2020 6:50 PM BLENDING SUPERVISOR) Pathologist Sig nature POCT GLU 128 (H) 70 - 110 mg/dL [facility] Specimen Blood Performing Organization Address [facility] Phone Number [facility] CLIA: [id number] [place] [address] [place] [address] COVID-19 (ID NOW RAPID TESTING) (10/02/2020 6:06 PM BLENDING SUPERVISOR) SARS-CoV-2 Rapid ID Not Detected Not Detected [facility] Specimen Swab - NASOPHARYNGEAL SWAB Narrative Performed At ID NOW COVID-19 Assay is an isothermal nucleic acid [facility] amplification test intended for the qualitative detect ion of nucleic acid from SARS-CoV-2 viral RNA in nasopharynge al (HOUSE FURNISHINGS SUPERVISOR) specimens. It is used under Emergency Use [...] repeat olimpia ent testing if clinically indicated. ID NOW COVID-19 Assay is an isothermal nucleic acid amplification test intended for the qualitative detect ion of nucleic acid from SARS-CoV-2 viral RNA in nasopharynge al (HOUSE FURNISHINGS SUPERVISOR) specimens. It is used under Emergency Use [...] indicated. Performing Organization Address City/State/Zipcode Phone Number [facility] CLIA: [id number] [place], [place] [id number] [address] [place] [address] US ABDOMEN LIMITED (10/02/2020 5:44 PM BLENDING SUPERVISOR) Specimen Impressions Performed At PACS/VR/DOSE Biliary sludge without evidence of cholelithiasis or a cute cholecystitis. Preliminary Report Dictated by Resident: Deric Sofia MD., have reviewed this study and agree with the above report. Narrative Performed At This result has an attachment that is no t available. RIGHT UPPER QUADRANT ULTRASOUND PACS/VR/DOSE HISTORY: epigastric pain COMPARISON: None. FINDINGS: LIVER: The liver is normal in size, contour and echote xture, measures 11.8 cm in craniocaudal dimension. No focal hepatic lesion. Normal hepatopetal flow within the main portal vein. The main portal vein measures 0.9 cm. GALLBLADDER: Layering biliary sludge is seen within th e gallbladder. No cholelithiasis, pericholecystic fluid, or gallbladder distention. The gallbladder wall measures 0.2 cm. No sonographic Grupo y's sign. The common bile duct measures 0.2 cm. PANCREAS: The visualized portions of the pancreas appe ar normal. RIGHT KIDNEY: The visualized portion of the right kidn ey is unremarkable. The suprarenal abdominal aorta measures 1.6 cm in AP d iameter. Procedure Note [facility], Radiant Results Inft User - 2019 8:20 PM BLENDING SUPERVISOR RIGHT UPPER QUADRANT ULTRASOUND HISTORY: epigastric pain COMPARISON: None. FINDINGS: LIVER: The liver is normal in size, cont our and echotexture, measures 11.8 cm in craniocaudal dimension. No focal h epatic lesion. Normal hepatopetal flow within the main portal vein. The ma in portal vein measures 0.9 cm. GALLBLADDER: Layering biliary sludge is seen within the gallbladder. No cholelithiasis, pericholecystic fluid, o r gallbladder distention. The gallbladder wall measures 0.2 cm. No son ographic Calle's sign. The common bile duct measures 0.2 cm. PANCREAS: The visualized portions of the pancreas appear normal. RIGHT KIDNEY: The visualized portion of the right kidney is unremarkable. The suprarenal abdominal aorta measures 1.6 cm in AP diameter. IMPRESSION Biliary sludge without evidence of layne lithiasis or acute cholecystitis. Preliminary Report Dictated by Resident: Rell Lyons I, Deric Ivan MD., have reviewed [facility] study and agree with the above report. Performing Organization Address City/State/Zipcode Phone Number PACS/VR/DOSE XR ABDOMEN ACUTE SERIES (10/02/2020 5:27 PM BLENDING SUPERVISOR) Specimen Impressions Performed At PACS/VR/DOSE No acute abnormality identified in the c hest, abdomen, or pelvis on radiographs. Nonobstructive bowel gas pa ttern. Bilateral nonaggressive appearing osseous lesions of t he proximal humeri. Differential considerations include mult iple osteochondromas, fibrous dysplasia, or some combination of both. It is unlikely to represent malignancy. Dedicated radiographs of the humeri recommended. Given patient's known diagnosis of achal krzysztof, there may be an underlying genetic source for these abnormalities. Preliminary Report Dictated by Resident: Rell Lyons I, Deric Ivan MD., have reviewed this study and agree with the above report. Narrative Performed At This result has an attachment that is no t available. XR ABDOMEN ACUTE SERIES PACS/VR/DOSE COMPARISON: Concurrently obtained and separately dicta annette right upper quadrant ultrasound HISTORY: chest pain, nausea FINDINGS: The lungs are clear with no focal consolidation. No pl eural effusion or pneumothorax is present. The heart is normal in size. A paucity of bowel gas is present with small amount of intermixed gas and stool in the right colon. No evidence of free subdiaph ragmatic air is present. No abnormal calcifications, radiopaque stones or cristian s are identified. Osseous excrescences arise from the proximal humeral m etadiaphyses, which appear to be contiguous with the medullary cavity. Fin dings are more striking in the left humerus with slightly expansile m orphology. Additionally, there is a narrow zone of transition trent r the junction of the proximal and middle one third of the left humeral diap hysis, with the medullary cavity more proximally having somewhat of a groundglass matrix appearance. No acute osseous abnormality. Procedure Note [facility], Radiant Results Inft User - 2019 12:45 PM BLENDING SUPERVISOR XR ABDOMEN ACUTE SERIES COMPARISON: Concurrently obtained and se parately dictated right upper quadrant ultrasound HISTORY: chest pain, nausea FINDINGS: The lungs are clear with no focal consol idation. No pleural effusion or pneumothorax is present. The heart is no rmal in size. A paucity of bowel gas is present with s mall amount of intermixed gas and stool in the right colon. No evidence of free subdiaphragmatic air is present. No abnormal calcifications, radiopaque s tones or masses are identified. Osseous excrescences arise from the prox imal humeral metadiaphyses, which appear to be contiguous with the medulla ry cavity. Findings are more striking in the left humerus with slight ly expansile morphology. Additionally, there is a narrow zone of transition near the junction of the proximal and middle one third of the lef t humeral diaphysis, with the medullary cavity more proximally having somewhat of a groundglass matrix appearance. No acute osseous abnormality . IMPRESSION No acute abnormality identified in the c hest, abdomen, or pelvis on radiographs. Nonobstructive bowel gas pa ttern. Bilateral nonaggressive appearing osseou s lesions of the proximal humeri. Differential considerations include mult iple osteochondromas, fibrous dysplasia, or some combination of both. It is unlikely to represent malignancy. Dedicated radiographs of the humeri recommended. Given patient's known diagnosis of achal krzysztof, there may be an underlying genetic source for these abnormalities. Preliminary Report Dictated by Resident: Rell Lyons I, Deric Ivan MD., have reviewed [facility] study and agree with the above report. Performing Organization Address City/State/Zipcode Phone Number PACS/VR/DOSE N-TERMINAL PRO-BNP (10/02/2020 5:11 PM BLENDING SUPERVISOR) Pathologist Sig [facility] NT-proBNP 1,660 (H) <=125 pg/mL [facility] Specimen Blood - VENOUS Narrative Performed At [facility] has been reported to cause a negative bias, int erpret [facility] results relative to patient's use of biotin. Performing Organization Address City/State/Zipcode Phone Number [facility] CLIA: [id number] [place] [address] [place] [address] Troponin I (10/02/2020 5:11 PM BLENDING SUPERVISOR) Pathologist [facility] [employer] [place] TROPONIN I 0.022 <=0.034 ng/mL [facility] Specimen Blood - VENOUS Narrative Performed At Equal or Less than 0.034 ng/ml---Normal [facility] Note: Cardiac troponin begins to rise 3-4 hours after the onset of ischemia. Repeat in 4-6 hours if the sample w as drawn within 3-4 hours of the onset of the symptom and found normal. Between 0.035 and 0.120 ng/mL--- Borderline. Questiona ble myocardial injury or necrosis Note: Serial measurement may be necessary to confirm o r exclude the diagnosis of myocardial injury or necrosis ; Clinical correlation (symptoms, EKGs, imaging studies, and others) required; Repeat in 4-6 hours if clinically indicated. Equal or Higher than 0.121 ng/mL---Abnormal. Myocardia l Injury or Necrosis Likely Biotin has been reported to cause a negative bias, int erpret results relative to patient's use of biotin. Performing Organization Address City/[facility]/Zipcode Phone Number [facility] CLIA: [id number] [place] [address] [place] [address] Lipase Serum (10/02/2020 5:11 PM BLENDING SUPERVISOR) Pathologist Sig [place] LIPASE 845 (H) 0 - 220 U/L [facility] Specimen Blood - VENOUS Performing Organization Address [facility] Phone Number [facility] CLIA: [id number] [place] [address] [place] [address] Hepatic Function Panel (ALB, T.PRO, BILI T, BU/BC, ALT, AST, ALK PHOS) (10/02/2020 5:11 PM BLENDING SUPERVISOR) Pathologist [facility] [employer] [place] TOTAL BILI 1.2 (H) 0.1 - 1.1 mg/dL [facility] BILI UNCON 1.1 0.1 - 1.1 mg/dL [facility] BILI CONJ 0.0 0.0 - 0.3 mg/dL [facility] T PROTEIN 7.4 6.3 - 8.2 g/dL [facility] ALBUMIN 3.6 3.5 - 5.0 g/dL [facility] ALK PHOS 973 (H) 34 - 122 U/L [facility] ALTv 539 (H) 5 - 50 U/L [facility] AST(SGOT) 368 (H) 13 - 40 U/L [facility] Specimen Blood - VENOUS Performing Organization Address [facility]/Zipcode Phone Number [facility] CLIA: [id number] [place] [address] [place] [address] Basic Metabolic Panel (NA, K, CL, CO2, GLUCOSE, BUN, CREATININE, CA) (10/02/2020 5:11 PM BLENDING SUPERVISOR) Pathologist Sig [place] NA 138 135 - 145 [facility] mmol/L SERVICES K 3.2 (L) 3.5 - 5.0 [facility] mmol/L SERVICES CL 102 98 - 108 mmol/L [facility] CO2 TOTAL 31 23 - 31 mmol/L [facility] AGAP 5 2 - 16 [facility] BUN 15 7 - 23 mg/dL [facility] GLUCOSE 46 (LL) 70 - 110 mg/dL [facility] CREATININE 0.77 0.60 - 1.25 [facility] mg/dL SERVICES CALCIUM 7.8 (L) 8.6 - 10.6 [facility] mg/dL SERVICES eGFR Calculation 114.3 mL/min/1.73m2 [facility] (Non- SERVICES [place]) eGFR Calculation 138.5 mL/min/1.73m2 [facility] () SERVICES Specimen Blood - VENOUS Narrative Performed At Association of Glomerular Filtration Rate (GFR) and St aging [facility] of Kidney Disease* + + [...] . Performing Organization Address City/State/Zipcode Phone Number [facility] CLIA: [id number] [place] [address] [place] [address] documented in this encounter Visit Diagnoses Diagnosis Achalasia - Primary Achalasia and cardiospasm Nausea Nausea alone Weakness Other malaise and fatigue Chest pain, unspecified type Elevated LFTs Other abnormal blood chemistry History of cocaine abuse Cocaine abuse, in remission Hypoglycemia Hypoglycemia, unspecified Biliary sludge determined by ultrasound Abdominal pain Abdominal pain, unspecified site Fall, initial encounter Epigastric abdominal pain Abdominal pain, epigastric documented in this encounter Administered Medications Medication Order MAR Action Action Date Dose Rate Site D5W 0.45% NaCl (1/2NS) IV New Bag 10/03/2020 5:51 AM BLENDING SUPERVISOR 1,000 mL 200 mL/hr infusion 1,000 mL at 200 mL/hr, 1,000 mL, IV Infusion, CONTINUOUS, Starting Josseline 10/02/20 at 2315, Until Discontinued, Routine New Bag 10/03/2020 12:38 AM BLENDING SUPERVISOR 1,000 mL 200 mL/hr dextrose 50 % in water (D50W) injection 25 mL Given 10/02/2020 11:16 PM BLENDING SUPERVISOR 25 mL 25 mL, Slow IV Push, PRN - SEE INSTRUCTIONS, Starting Tue10/02/20 at 2018, Until Discontinued, Routine, Blood Glucose <= 60 lidocaine (LIDODERM) 5 % (700 mg/patch) Given 10/03/2020 10:38 A M BLENDING SUPERVISOR 1 Patch patch 1 Patch 1 Patch, Topical, Administer over 12 Hours, DAILY, First dose (after last modification) on Tue10/03/20 at 0900, Until Discontinued, Routine lidocaine 1% (PF) (XYLOCAINE) injection 5 mL 5 mL, Subcutaneous, PRN, Starting Tue10/03/20 at 0558 , Until Discontinued, Routine, Local anesthesia NaCl 0.9% (NS) injection 10 mL 10 mL, Slow IV Push, PRN, Starting Tue10/03/20 at 055 8, Until Discontinued, Routine, airline dispatcher ondansetron (ZOFRAN (PF)) injection 4 mg 4 mg, Slow IV Push, Q6HPRN, Starting Tue10/03/20 at 0 000, Until Discontinued, Routine, Nausea and Vomiting (N/V) Medication Order MAR Action Action Date Dose Rate Site D5W 0.45% NaCl (1/2NS) IV New Bag 10/02/2020 10:55 PM BLENDING SUPERVISOR 1,000 mL 150 mL/hr infusion 1,000 mL at 150 mL/hr, 1,000 mL, IV Infusion, CONTINUOUS, Starting Josseline 10/02/20 at 2030, Until Josseline 10/02/20 at 2301, Routine dextrose 10% (D10W) bolus infusion 250 m L Given 10/02/2020 6:06 PM BLENDING SUPERVISOR 250 mL 250 mL, IV Infusion, ONCE, Josseline 10/02/20 at 1800, For 1 dose, Dextrose 10% 250 mL bag contains: 10 gm = 100 mL 20 gm = 200 mL 25 gm = 250 mL (whole bag) The maximum rate at which dextrose can be infused without producing glycosuria is 0.5 g/kg/hour. BUD: If wrapper is open bag is good for 30 days at room temperature. , KCL (POTASSIUM CHLORIDE) 40 mEq in NaCl 0.9% Given 08/2020 1:17 AM BLENDING SUPERVISOR 40 mEq (NS) piggyback 40 mEq, IV Piggyback, ONCE, 1 dose, [facility] 10/02/20 at 2130, 250 mL morpHINE injection 4 mg Given 10/02/2020 8:47 PM BLENDING SUPERVISOR 4 mg 4 mg, Slow IV Push, ONCE, 1 dose, [facility] 10/02/20 at 1930, STAT naloxone (NARCAN) injection 0.4 mg Given 10/03/2020 11:14 AM BLENDING SUPERVISOR 0.4 mg 0.4 mg, Slow IV Push, ONCE, 1 dose, Tue10/03/20 at 1215, Routine ondansetron (ZOFRAN (PF)) injection 4 mg Given 10/02/2020 8:48 PM BLENDING SUPERVISOR 4 mg 4 mg, Slow IV Push, ONCE, 1 dose, [facility] 10/02/20 at 1800, ROBERTO valproate (DEPACON) 750 mg in D5W piggyb ack Given 10/03/2020 10:38 AM BLENDING SUPERVISOR 750 mg 750 mg, IV Piggyback, DAILY, First dose (after last modification) on Tue10/03/20 at 0900, Until Discontinued, 100 mL documented in this encounter Additional Health Concerns Infection Onset Date Last Indicated Resolved Time COVID-19 Rule Out 10/02/2020 10/02/2020 10/02/2020 6: 58 PM BLENDING SUPERVISOR documented as of this encounter Insurance Payer Benefit Plan / Subscriber ID Effective Phone Address T ype Group Dates MEDICAID MEDICAID PENDING 2020-Pre [address] [place] [address] Pending PENDING [place] [id number] documented as of this encounter
[2020-10-05 14:46] LABS: Protime INR 1.16
[2020-10-05 15:12] LABS: Phosphorus 3.8 mg/dL (2.5-4.9)
[2020-10-05 15:14] LABS: AST/SGOT 230 U/L (15-37); Albumin 2.5 g/dL (3.4-5.0); Alkaline Phosphatase 778 U/L (45-117); Amylase 166 U/L (25-115); BUN Blood Urea Nitrogen 49 mg/dL (7-18); Bicarbonate 27 mmol/L (21-32); Bilirubin Direct 0.3 mg/dL (0-0.2); Bilirubin Total 0.7 mg/dL (0.2-1.0); Creatine Phosphokinase 505 U/L (39-308); Lipase 256 U/L (73-393); Potassium 3.8 mmol/L (3.5-5.1); Protein, Total 6.3 g/dL (6.4-8.2); Sodium Level 147 mmol/L (136-145); Troponin (Emerg Dept Use Only) < 0.02 ng/mL (0.0-0.045)
[2020-10-05 15:16] LABS: ALT/SGPT 398 U/L (12-78); CKMB Creatine Kinase MB 30.1 ng/mL (0.3-3.6); Glucose Level 30 mg/dL (74-106)
--- NOTE | 2020-10-05 15:18 | RAD REPORT ---
EXAM DESCRIPTION: RAD - Chest Single View - 10/05/2020 3:10 pm CLINICAL HISTORY: COUGH COMPARISON: Portable May 2019 TECHNIQUE: AP portable chest image was obtained 10/05/2020 3:10 pm . FINDINGS: Lungs are clear. Heart and vasculature are normal. No measurable pleural effusion and no p neumothorax. No acute bony abnormality seen. No acute aortic findings suspected. IMPRESSION: No acute cardiopulmonary process. No significant change from comparison study.
[2020-10-05] MEDS ORDERED: D50W 50 ML IV ONE (15:33)
[2020-10-05 15:48] LABS: Absolute Lymphocytes (CBC) 1.5 K/uL (0.7-4.9); Basophils % 0.1 % (0-1.3); Hematocrit 24.4 % (39.6-49.0); Lymphocytes % 14.6 % (15.3-44.8); MPV 9.8 fL (7.6-11.3); RBC Red Blood Cell Count 2.89 M/uL (4.33-5.43)
[2020-10-05] MEDS ORDERED: D5W 1,000 ML IV ONE (15:50)
--- NOTE | 2020-10-05 15:51 | ER ---
Nurse's Notes [facility] Name: Tahir Ag Jr Age: 35 yrs Sex: Male : 1985 Arrival Date: 10/05/2020 Time: 14:06 Bed 3 Private MD: Diagnosis: Urinary tract infection, site not specified;Anorexia;Hypoglycemia, unspecified;Hypothermia;Rhabdomyolysis;Possible esophageal pneumatosis Presentation: 10/05 14:09 Chief complaint: EMS states: Pt was life-flighted to from [facility] yesterday to [address] with renal and liver failure, pt AMA'd once he arrived at [facility]. Family reported there is something mentally wrong and they wished the [facility] would take over his care but they wont so "they are stuck with him.". Coronavirus screen: Client denies travel out of the [place] in the last 14 days. At this time, the client does not indicate any symptoms associated with coronavirus-19. Ebola Screen: No symptoms or risks identified at this time. Initial Sepsis Screen: Does the patient meet any 2 criteria? RR > 20 per min. Does the patient have a suspected source of infection? No. Patient's initial sepsis screen is negative. Risk Assessment: Do you want to hurt yourself or someone else? Patient reports no desire to harm self or others. Onset of symptoms is unknown. Care prior to arrival: None. 14:09 Method Of Arrival: EMS: [facility] 14:09 Acuity: MARTINA 2 jl7 Historical: - Allergies: 14:20 No Known Allergies; jl7 - PMHx: 14:20 Bipolar disorder; Diabetes - NIDDM; Hernia; Hypertension; Schizophrenia; jl7 - PSHx: 14:20 Knee surgery; shoulder surgery; jl7 - Immunization history:: Adult Immunizations unknown. - Social history:: Smoking status: unknown. Screenin:00 Nutritional screening: Intervention for positive screen: ED Physician notified. iw Tuberculosis screening: No symptoms or risk factors identified. 19:00 Abuse screen: Denies threats or abuse. Denies injuries from another. iw 19:00 Fall Risk ea Assessment: 14:15 General: Appears unkempt, malnourished, cachectic, Behavior is calm, cooperative. Pain: iw Complains of pain in pain all over. Neuro: Level of Consciousness is awake, alert, obeys commands, Oriented to person, place, time. Cardiovascular: Capillary refill is > 3 seconds is sluggish in bilateral fingers Rhythm is sinus bradycardia. Respiratory: Respiratory effort is even, unlabored, Respiratory pattern is regular, symmetrical. GI: Derm: Skin is fragile, with poor turgor. Musculoskeletal: Range of motion: intact in all extremities. 16:12 Reassessment: Patient appears in no apparent distress at this time. pt sitting up, iw drinking coffee, symptoms improving, pt feeling a bit nauseous, will notify KASIA iEsenberg. 17:10 Reassessment: Patient appears in no apparent distress at this time. pt vomited prior to iw CT, zofran given now, pt allowed to eat only small amounts at a time, pt requesting more food but advise that he can only tolerate small amounts at time , pt verbalizes understanding. 17:40 Reassessment: pt was advised that he needs to be NPO due to CT results and pt will need iw to be transferred to [facility], pt states "if I can't eat them I'm not going anywhere" Elgin PEDROZA at bedside to discuss POC with pt, states he left [facility] yesterday bc they wouldn't let him eat anything. pt states he wants to go home. 19:00 Reassessment: Verified with pt that he wishes to leave [facility]. Pt states he will only be iw transferred if we let him eat his food, I advised pt that it is against medical advice to allow him to eat ad it is detrimental to his care, pt states then I want to go home, I don't want to be transferred. 22:38 Reassessment: Patient and/or family updated on plan of care and expected duration. Pain ea level reassessed. Patient is alert, oriented x 3, equal unlabored respirations, skin warm/dry/pink. Report called to [facility]. Vital Signs: 14:09 BP 110 / 85; Pulse 48; Resp 24; Temp 91.3(R); Pulse Ox 100% ; Weight 36.29 kg; Pain jl7 10/10; 15:42 BP 98 / 79; Pulse 75; Resp 20 S; Pulse Ox 100% on R/A; iw 16:00 Temp 91.7(R); iw 17:10 BP 93 / 61; Pulse 70; Resp 18 S; Pulse Ox 100% on R/A; iw 17:52 BP 109 / 89; Pulse 64; Resp 18 S; Temp 96.3(TE); Pulse Ox 99% on R/A; iw 20:00 BP 115 / 86; Pulse 74; Resp 18; Pulse Ox 100% ; ea 21:08 BP 104 / 86; Pulse 78; Resp 12; Temp 97.3; Pulse Ox 99% ; dh4 22:03 BP 110 / 76; Pulse 86; Resp 18; Pulse Ox 99% on R/A; ea 23:42 BP 105 / 86; Pulse 82; Resp 18; Temp 97.8; Pulse Ox 100% on R/A; rv ED Course: 14:06 Patient arrived in ED. em1 14:09 Saqib Pederson, MARTINA is Primary Nurse. jl7 14:13 Elgin Leal NP is PHCP. pm1 14:13 Keshawn Fish MD is Attending Physician. pm1 14:18 Triage completed. jl7 14:20 Arm band placed on right wrist. jl7 14:20 Inserted saline lock: 20 gauge in left hand, using aseptic technique. Blood collected. aa5 14:20 Initial lab(s) drawn, by me, sent to lab. First set of blood cultures drawn by me. aa5 14:20 Inserted saline lock: 20 gauge in right forearm, using aseptic technique. iw 14:25 Second set of blood cultures drawn. Inserted saline lock: 20 gauge in right hand, using iw aseptic technique. 15:10 Chest Single View XRAY In Process Unspecified. EDMS 15:51 Javad Hernández DO is Hospitalizing Provider. pm1 16:38 CT Abd/Pelvis - Without Contrast In Process Unspecified. EDMS 19:00 Patient has correct armband on for positive identification. Bed in low position. Call ea light in reach. 20:46 Initiated transfer at [facility] with Tegan. tt3 20:57 Per Tegan, all [facility] campuses are at ICU capacity. tt3 21:02 Initiated transfer with Christel Bean at [facility]. Stated that they have no ICU beds. tt3 21:08 Initiated transfer at [facility] with Ruthie. Stated they have no beds. tt3 21:30 Initiated transfer at [facility] with Tiara. Stated that LTAC, [facility] within [facility] was full. Transferred tt3 to Elgin Leal NP, regarding the transfer request after checking [facility] Nur. 22:38 No provider procedures requiring assistance completed. Patient transferred, IV remains ea in place. Administered Medications: 14:26 Drug: NS 0.9% (30 ml/kg) 30 ml/kg Route: IV; Rate: bolus; Site: left forearm; jl7 15:46 Follow up: Response: No adverse reaction; IV Status: Completed infusion; IV Intake: jl7 1088ml 15:21 Drug: D50W 50 ml Route: IVP; Site: left hand; jl7 22:45 Follow up: Response: Blood sugar is elevated rv 15:38 Drug: D5W 1000 ml Route: IV; Rate: 100 ml/hr; Site: left hand; iw 22:43 Follow up: Response: No adverse reaction; IV Status: Infusion continued upon transfer ea 16:07 Drug: Rocephin 1 grams Route: IV; Rate: calculated rate; Site: left hand; jl7 22:45 Follow up: Response: No adverse reaction; IV Status: Completed infusion rv 16:50 Drug: Zofran (Ondansetron) 4 mg Route: IVP; Site: left wrist; iw 22:45 Follow up: Response: No adverse reaction rv Intake: 15:46 IV: 1088ml; Total: 1088ml. jl7 Outcome: 15:51 Decision to Hospitalize by Provider. pm1 17:57 ER care complete, transfer ordered by MD. pm1 20:42 ER care complete, transfer ordered by MD. pm1 22:39 Instructed on the need for transfer, Demonstrated understanding of instructions. ea 23:36 Transferred by ground EMS to other acute care facility: [facility]. Transfer form rv completed. X-rays sent w/ patient. 23:36 Condition: stable 23:41 Patient left the ED. rv Addendum: 10/08/2020 08:20 Addendum: Culture Results: Positive urine culture. Pt was transferred to [facility], a a5 contacted [facility] and they state pt is no longer a their hospital. Contacted pt's phone number and left voice mail. 10/11/2020 07:36 Addendum: Culture Results: Positive urine culture. faxed to [facility] to Lavelle malloy v Signatures: Dispatcher [employer] Deedee Tesfaye, RN RN Xiomara Hassan, RN MARTINA iw Julio Bell em1 Lana Lindsey, RN RN aa5 Elgin Leal, TUBING TESTER TUBING TESTER pm1 Saqib Pederson, RN RN jl7 Gina Alcaraz, RN MARTINA Snowden, Miguel, RN MARTINA Dilan Coronado 4 Christiano Carter tt3 Corrections: (The following items were deleted from the chart) 10/05 15:41 14:45 Response: No adverse reaction iw iw 15:41 14:45 Response: No adverse reaction iw iw
--- NOTE | 2020-10-05 15:52 | EDPHYS ---
Physician Documentation [facility] Name: Tahir Ag Jr Age: 35 yrs Sex: Male : 1985 Arrival Date: 10/05/2020 Time: 14:06 Bed 3 Private MD: ED Physician Keshawn Fish HPI: 10/05 14:30 This 35 yrs old Black Male presents to ER via EMS with complaints of General Weakness. pm1 14:31 Onset: The symptoms/episode began/occurred 3 week(s) ago. Severity of symptoms: in the pm1 emergency department the symptoms are worse. The patient has been recently seen by a physician: with similar presenting complaints, Patient was seen at [facility] and was transferred by life flight to [facility]. When he arrived there he signed out AMA because he just wanted to go home. He came to the hospital today because his parents called the ambulance. 14:31 The patient presents to the emergency department with weakness of the entire body, pm1 generalized weakness. Associated signs and symptoms: Pertinent positives: weakness, thirst, poor PO intake - patient does not want to eat or drink, Pertinent negatives: fever, headache, cough, sore throat, chest pain, shortness of breath, abdominal pain, n/v/d. 15:35 Takes ativan, depakote, and zoloft. Denies any other medications. [facility] patient. pm1 Historical: - Allergies: 14:20 No Known Allergies; jl7 - PMHx: 14:20 Bipolar disorder; Diabetes - NIDDM; Hernia; Hypertension; Schizophrenia; jl7 - PSHx: 14:20 Knee surgery; shoulder surgery; jl7 - Immunization history:: Adult Immunizations unknown. - Social history:: Smoking status: unknown. ROS: 14:31 ENT: Negative for injury, pain, and discharge, Neck: Negative for injury, pain, and pm1 swelling, Cardiovascular: Negative for chest pain, palpitations, and edema, Respiratory: Negative for shortness of breath, cough, wheezing, and pleuritic chest pain, Abdomen/GI: Negative for abdominal pain, nausea, vomiting, diarrhea, and constipation, Back: Negative for injury and pain, MS/Extremity: Negative for injury and deformity, Skin: Negative for injury, rash, and discoloration. 14:31 Constitutional: Positive for body aches, fatigue, malaise, poor PO intake, Negative for fever. 14:31 Neuro: Positive for weakness, Negative for headache, numbness, tingling. Exam: 14:31 Head/Face: Normocephalic, atraumatic. pm1 14:31 Constitutional: The patient appears alert, awake, emaciated, obviously ill. 14:31 ENT: Mouth: Lips: dry, Oral mucosa: dry, Posterior pharynx: is normal, airway is patent, no acute changes. 14:31 Chest/axilla: Exam negative for acute changes, tenderness. 14:31 Cardiovascular: Rate: bradycardic, actual rate is 48 bpm, Rhythm: regular, Pulses: no pulse deficits are appreciated, Heart sounds: normal, normal S1and S2, Edema: is not appreciated. 14:31 Back: No spinal tenderness. No costovertebral tenderness. Full range of motion. pm1 Skin: Warm, dry with normal turgor. Normal color with no rashes, no lesions, and no evidence of cellulitis. MS/ Extremity: Pulses equal, no cyanosis. Neurovascular intact. Full, normal range of motion. 14:31 Respiratory: Exam negative for acute changes, the patient does not display signs of respiratory distress, Breath sounds: are clear throughout. 14:31 Abdomen/GI: Exam negative for acute changes, Inspection: abdomen appears normal, Palpation: abdomen is soft and non-tender, in all quadrants. 14:31 Neuro: Orientation: is normal, to person, place, time \T\ situation. Motor: is normal, moves all fours, Sensation: is normal, no obvious gross deficits. 21:06 Abdomen/GI: Rectal exam: is unremarkable, rectal tone normal, Stool: suarez, guaiac pm1 negative. Vital Signs: 14:09 BP 110 / 85; Pulse 48; Resp 24; Temp 91.3(R); Pulse Ox 100% ; Weight 36.29 kg; Pain jl7 10/10; 15:42 BP 98 / 79; Pulse 75; Resp 20 S; Pulse Ox 100% on R/A; iw 16:00 Temp 91.7(R); iw 17:10 BP 93 / 61; Pulse 70; Resp 18 S; Pulse Ox 100% on R/A; iw 17:52 BP 109 / 89; Pulse 64; Resp 18 S; Temp 96.3(TE); Pulse Ox 99% on R/A; iw 20:00 BP 115 / 86; Pulse 74; Resp 18; Pulse Ox 100% ; ea 21:08 BP 104 / 86; Pulse 78; Resp 12; Temp 97.3; Pulse Ox 99% ; dh4 22:03 BP 110 / 76; Pulse 86; Resp 18; Pulse Ox 99% on R/A; ea 23:42 BP 105 / 86; Pulse 82; Resp 18; Temp 97.8; Pulse Ox 100% on R/A; rv MDM: 14:13 Patient medically screened. pm1 15:12 Data reviewed: vital signs. pm1 15:49 Counseling: I had a detailed discussion with the patient and/or guardian regarding: the pm1 historical points, exam findings, and any diagnostic results supporting the discharge/admit diagnosis, lab results, radiology results, the need for further work-up and treatment in the hospital. 16:17 Physician consultation: Javad Hernández DO was called at 16:17, was contacted at 16:17, pm1 regarding admission, to the ICU, patient's condition, would like further tests performed, CT scan, UDS, and Tylenol level. Pending results will determine disposition since we do not have GI services today or the rest of the month. 17:40 Physician consultation: Javad Hernández DO regarding CT results. Dr. Hernández contacted pm1 [facility] and obtained more information regarding the patient's ER visit yesterday. Patient presented to the ER with similar presentation today, hypoglycemia with hypothermia. Patient was transferred to [facility] for higher level of care, further evaluation with GI and history of esophageal concerns. Dr. Hernández recommends transfer to [facility] for higher level of care and continuity. We also do not have GI available. 18:10 Refusal of service: The patient/guardian displays adequate decision making capability pm1 and despite a detailed discussion of alternatives, benefits, risks, and consequences refuses: Admission to the hospital for further work-up and treatment, Discussed with patient on multiple separate occasions that he needs to be transfer to another facility for higher level of care. Explained that we do not have GI and that is very sick with multiple diagnosis, hypoglycemia, hypothermia, UTI, rhabdomyolysis, and possible esophageal issues, such as achalasia, esophageal pneumatosis, esophageal rupture, or esophageal bleeding. Patient does not want to be transferred if he is not able to eat food now. I explained to him that based on the possible esophageal diagnoses and the CT results that I cannot give him food because it can worsen his condition. He said that he left [facility] yesterday against medical advice for the same reason, for not being fed when he is hungry. I explained to him that we need to keep him NPO and his blood sugar is being maintained through the IV. He still refuses to be transferred and just wants to go home and eat food. 20:46 ED course: Patient now agrees to be transfer to a facility for further treatment and pm1 care. 21:45 Physician consultation: ER MD Ayala was contacted at 21:46, regarding regarding pm1 transfer, patient's condition, and will see patient in ED. 10/05 14:20 Order name: Urine Culture pm1 10/05 14:20 Order name: Amylase, Serum; Complete Time: 15:23 pm1 10/05 14:20 Order name: Basic Metabolic Panel; Complete Time: 15:23 pm1 10/05 14:20 Order name: Blood Culture Adult (2) pm1 10/05 14:20 Order name: CBC with Diff; Complete Time: 17:24 pm1 10/05 14:20 Order name: Ckmb; Complete Time: 15:23 pm1 10/05 14:20 Order name: CPK; Complete Time: 15:23 pm1 10/05 14:20 Order name: Lactate; Complete Time: 15:05 pm1 10/05 14:20 Order name: LFT's; Complete Time: 15:23 pm1 10/05 14:20 Order name: Lipase; Complete Time: 15:23 pm1 10/05 14:20 Order name: Procalcitonin; Complete Time: 15:46 pm1 10/05 14:20 Order name: Protime (+inr); Complete Time: 15:05 pm1 10/05 14:20 Order name: Ptt, Activated; Complete Time: 15:05 pm1 10/05 14:20 Order name: Troponin (emerg Dept Use Only); Complete Time: 15:23 pm1 10/05 14:20 Order name: Urine Microscopic Only; Complete Time: 16:19 pm1 10/05 14:22 Order name: Flu; Complete Time: 16:52 pm1 10/05 14:22 Order name: Strep; Complete Time: 15:38 pm1 10/05 14:27 Order name: Phosphorus; Complete Time: 16:07 pm1 10/05 15:37 Order name: Throat Culture EDMS 10/05 15:53 Order name: Valproic Acid (Depakene) Level; Complete Time: 16:07 EDMS 10/05 16:05 Order name: Urine Dipstick--Ancillary (enter results); Complete Time: 16:38 em1 10/05 16:07 Order name: UDS; Complete Time: 16:52 pm1 10/05 16:07 Order name: Tylenol Level; Complete Time: 17:11 pm1 10/05 16:15 Order name: Glucose, Ancillary Testing; Complete Time: 16:19 EDMS 10/05 16:20 Order name: SARS-COV-2 RT PCR; Complete Time: 16:38 EDMS 10/05 16:39 Order name: ETOH Level; Complete Time: 17:11 pm1 10/05 17:21 Order name: CBC Smear Scan; Complete Time: 17:24 EDMS 10/05 19:02 Order name: Glucose, Ancillary Testing; Complete Time: 19:03 EDMS 10/05 14:20 Order name: Chest Single View XRAY; Complete Time: 15:23 pm1 10/05 14:20 Order name: Accucheck; Complete Time: 15:01 pm1 10/05 14:20 Order name: Cardiac monitoring; Complete Time: 14:27 pm1 10/05 14:20 Order name: EKG - Nurse/Tech; Complete Time: 14:27 pm1 10/05 14:20 Order name: IV Saline Lock - Large Bore; Complete Time: 14:27 pm1 10/05 14:20 Order name: Labs collected and sent; Complete Time: 14:27 pm1 10/05 14:20 Order name: O2 Per Protocol; Complete Time: 14:27 pm1 10/05 14:20 Order name: O2 Sat Monitoring; Complete Time: 14:27 pm1 10/05 14:20 Order name: Urine Dipstick-Ancillary (obtain specimen); Complete Time: 16:04 pm1 10/05 14:22 Order name: Misc. Order: Mattie jeffers; Complete Time: 14:26 pm1 10/05 15:24 Order name: Diet Regular; Complete Time: 15:24 em1 10/05 16:16 Order name: CT Abd/Pelvis - Without Contrast; Complete Time: 17:24 pm1 10/05 21:07 Order name: Glucose Level; Complete Time: 21:51 pm1 10/05 21:26 Order name: Glucose, Ancillary Testing; Complete Time: 21:29 EDMS EC:31 Rate is 48 beats/min. Rhythm is regular. WA interval is shortened. QT interval is pm1 prolonged. No Q waves. No ST changes noted. Clinical impression: Sinus bradycardia. Administered Medications: 14:26 Drug: NS 0.9% (30 ml/kg) 30 ml/kg Route: IV; Rate: bolus; Site: left forearm; jl7 15:46 Follow up: Response: No adverse reaction; IV Status: Completed infusion; IV Intake: jl7 1088ml 15:21 Drug: D50W 50 ml Route: IVP; Site: left hand; jl7 22:45 Follow up: Response: Blood sugar is elevated rv 15:38 Drug: D5W 1000 ml Route: IV; Rate: 100 ml/hr; Site: left hand; iw 22:43 Follow up: Response: No adverse reaction; IV Status: Infusion continued upon transfer ea 16:07 Drug: Rocephin 1 grams Route: IV; Rate: calculated rate; Site: left hand; jl7 22:45 Follow up: Response: No adverse reaction; IV Status: Completed infusion rv 16:50 Drug: Zofran (Ondansetron) 4 mg Route: IVP; Site: left wrist; iw 22:45 Follow up: Response: No adverse reaction rv Disposition: 10/06 10:51 Co-signature as Attending Physician, Keshawn Fish MD I agree with the assessment and [facility] plan of care. Disposition: 10/05/20 20:[address] Transfer ordered [address] [facility]. Diagnosis are Hypoglycemia, unspecified, Urinary tract infection, site not specified, Anorexia, Hypothermia, Rhabdomyolysis, Possible esophageal pneumatosis. - Reason for transfer: Higher level of care. - Accepting physician is [facility] N[facility]. - Condition is Serious. - Problem is new. - Symptoms have improved. Signatures: Dispatcher [employer] [facility] Keshawn Fish MD MD cha Williams, Irene RN RN iw Elgin Leal, JUMPBASTING ARMHOLE BASTER JUMPBASTING ARMHOLE BASTER pm1 PedersonSaqib brannon RN RN jl7 Miguel Snowden RN RN rv Antunez, Elena RN ea Corrections: (The following items were deleted from the chart) 10/05 15:25 14:23 CORONAVIRUS+MR.LAB.BRZ ordered. [facility] EDAK 15:55 15:33 VALPROIC ACID (DEPAKOTE)+C.LAB.BRZ ordered. [facility] EDAK 15:58 15:51 Hospitalization Ordered by Javad Hernández DO for Inpatient Admission. Preliminary pm1 diagnosis is Hypoglycemia, unspecified; Hypothermia; Anorexia; Rhabdomyolysis; Unspecified protein-calorie malnutrition. Bed requested for Intensive Care Unit. Status is Inpatient Admission. Condition is Guarded. Problem is new. Symptoms have improved. pm1 17:55 15:58 10/05/2020 15:51 Hospitalization Ordered by Javad Hernández DO for Inpatient pm1 Admission. Preliminary diagnosis is Hypoglycemia, unspecified; Hypothermia; Anorexia; Rhabdomyolysis; Unspecified protein-calorie malnutrition; Urinary tract infection, site not specified. Bed requested for Intensive Care Unit. Status is Inpatient Admission. Condition is Critical. Problem is new. Symptoms have improved. pm1 18:31 17:57 10/05/2020 17:57 Transfer ordered to [facility]. Diagnosis is Urinary tract pm1 infection, site not specified; Hypoglycemia, unspecified; Hypothermia; Unspecified protein-calorie malnutrition; Rhabdomyolysis. Reason for transfer: Higher level of care. Accepting physician is [facility]. Condition is Serious. Problem is new. Symptoms have improved. pm1 20:40 18:37 10/05/2020 18:37 Patients has left against medical advice. Impression: pm1 Hypoglycemia, unspecified; Hypothermia; Anorexia; Rhabdomyolysis; Unspecified protein-calorie malnutrition; Urinary tract infection, site not specified; Possible esophageal wall pneumatosis. Patient states they are going to Home. Condition is Undetermined. Follow up: Emergency Department; When: Upon discharge from the Emergency Department; Reason: Worsening of condition, Continuance of care. Follow up: Private Physician; When: Upon discharge from the Emergency Department; Reason: Recheck today's complaints, Continuance of care, Re-evaluation by your physician. Problem is new. Symptoms have improved. pm1 21:46 20:42 10/05/2020 20:[address] Transfer ordered [address] [facility]. Diagnosis is Hypoglycemia, pm1 unspecifiedUrinary tract infection, site not specified; Anorexia; Hypothermia; Rhabdomyolysis; Possible esophageal pneumatosis. Reason for transfer: Higher level of care. Accepting physician is [facility]. Condition is Serious. Problem is new. Symptoms have improved. pm1 23:41 21:46 10/05/2020 20:42 Transfer ordered to [facility]. Diagnosis is Hypoglycemia, rv unspecifiedUrinary tract infection, site not specified; Anorexia; Hypothermia; Rhabdomyolysis; Possible esophageal pneumatosis. Reason for transfer: Higher level of care. Accepting physician is [facility]. Condition is Serious. Problem is new. Symptoms have improved. pm1
[2020-10-05] MEDS ORDERED: CEFTRIAXONE/SWI 1gm 1 GM/10 ML SYR ONE (16:06)
[2020-10-05 16:16] LABS: Urine Amorphous Sediment 2+ /HPF (NONE SEEN); Urine Bacteria >50 /HPF (NONE SEEN); Urine RBC 20-50 /HPF (NONE SEEN)
[2020-10-05 16:23] LABS: Urine Blood 2+ (NEG); Urine Glucose TRACE (NEG); Urine Protein 3+ (NEG); Urine pH 8.5 (5.0-7.0)
[2020-10-05 16:44] LABS: Barbiturates NEGATIVE (NEGATIVE); Benzodiazepines NEGATIVE (NEGATIVE); Cocaine NEGATIVE (NEGATIVE); METHAMPHETAM NEGATIVE (NEGATIVE); Methadone NEGATIVE (NEGATIVE); Opiates NEGATIVE (NEGATIVE); Phencyclidine NEGATIVE (NEGATIVE); THC Cannibis NEGATIVE (NEGATIVE)
[2020-10-05] MEDS ORDERED: ONDANSETRON 4 MG/2 ML VIAL ONE (17:03)
[2020-10-05 17:21] LABS: Platelet Estimate DECR; White Blood Cell Scan OK (OK)
--- NOTE | 2020-10-05 17:21 | RAD REPORT ---
EXAM DESCRIPTION: CT - Abdomen Pelvis Wo Contrast - 10/05/2020 4:38 pm CLINICAL HISTORY: Elevated liver enzymes abdominal pain COMPARISON: <Comparisons> TECHNIQUE: Axial [address] imaging of the abdomen and pelvis was performed without IV contrast. No IV contrast was given because of allergy, abnormal renal function, patient refusal or physician re quest. No oral contrast administered. All CT scans are performed using dose optimization technique as appropriate and may include automated exposure control or mA/KV adjustment according to patient size. FINDINGS: Minimal ground-glass opacities are present in each posterior lower lung field. No pneumoth orax or pleural effusion. No cardiomegaly or pericardial effusion. Liver is normal in size. No focal lesions identifiable on noncontrast imaging. No splenomegaly or foc al splenic abnormality seen. Pancreas cannot be accurately assessed. The pancreatic tissue is isodens e to adjacent non-opacified bowel. No gross evidence for a pancreatic solid or cystic mass. Gallbladd er and biliary tree are also without suspicious finding. No hydronephrosis or suspicious renal mass. No significant adrenal finding. Isodense renal masses an d pyelonephritis cannot be excluded in the absence of IV contrast. Urinary bladder is only partially filled. Urinary bladder wall thickening is evident which may be partly are entirely due to the limite d distention. Cystitis cannot be excluded. Ill-defined hyperdensity present in the posterior lumen of the bladder could be a partially calcified bladder stone. Air and stool are present in nondilated colon. An acute colon process is not identified. Small bowel loops are fluid-filled but do not appear to be dilated. There is fluid retention throughout the subcu taneous fatty tissues, peritoneal cavity and retroperitoneal space. This creates very poor tissue cr ne separation between the structures of the abdomen and pelvis. Dilated viscus in the midline lower c hest is probably esophagus. Most or all of the stomach appears to still be within the abdominal cavit y. The dilated viscus, probably mostly or entirely esophagus has food content within the lumen. Circu mferential ring of air densities is present. It is difficult to differentiate air trapped between sidney d material and esophageal wall from possible esophageal wall pneumatosis. GE junction is poorly visua lized to determine presence of stricture or mass. The dilated esophagus is only partially visualized. No free air. No hernia, mass or bulky lymphadenopathy. No suspicious bony findings. IMPRESSION: Abnormally dilated esophagus only partially visualized. The lumen is filled with food ma terial. There is a circumferential ring of air densities peripherally in the esophagus. It is difficult to di stinguish esophageal wall pneumatosis from air densities trapped between the food bezoar and the wall s of the esophagus. Esophageal pneumatosis, if present, can be due to both benign and more clinically emergent etiologies . No gastric dilatation. All or almost all of the stomach appears to be intraabdominal with no gross ab normality seen. The GE junction is poorly visualized. Anasarca pattern throughout the abdomen and pelvis. This results in very poor tissue plane separation between all of the soft tissues on this noncontrast study. Urinary bladder wall thickening is seen with suspected bladder stones. Wall thickening may in part be due to the contracted state. Cystitis is not excluded. Full assessment is limited is the absence of IV contrast.
[2020-10-05 17:22] LABS: Blood Morphology Comment NOTED (NOT SEEN); Poikilocytosis 2+
[2020-10-09 05:34] VITALS: TEMP 98.2; O2SAT 99
[2020-10-09 05:48] VITALS: BP 110/76
== END 2020-10-05 23:41 | disposition short-term general hospital (02) ==
LOC: ER 14:04
DX: E11.649 Type 2 diabetes mellitus with hypoglycemia without coma (principal); N39.0 Urinary tract infection, site not specified; M62.82 Rhabdomyolysis; R63.0 Anorexia; T68.XXXA Hypothermia, initial encounter; F20.9 Schizophrenia, unspecified; Z20.828 Contact with and (suspected) exposure to other viral communicable diseases
CPT/HCPCS: 36415; 71045; 74176; 80048; 80076; 80164; 80307; 80320; 80329; 81003; 81015; 82150; 82550; 82553; 82947; 83605; 83690; 84100; 84145; 84484; 85025; 85610; 85730; 87040; 87070; 87077; 87081; 87086; 87088; 87186; 87804; 93005; 99285; J0696; J2405; U0003

== ENCOUNTER 2020-10-08 09:15 | Emergency (ER) | payer SELFPAY ==
--- OUTSIDE RECORDS SUMMARY | 2020-10-08 09:33 | XMS REPORT | Clinical Summary ---
:1985 Author Organization [facility] Distr ict Address [facility] [place] [address] Care Team Providers Name Role Phone Unavailable [...] 18 yrs) 07/24/2020 Results Not on fileafter 10/08/2019 Insurance Payer Benefit Plan / Subscriber ID Effective Dates Phone Addre ss Type Group [employer] SELF-PAY [id number] 2014-Prese [phone] [id number] [place] [address] (Work) [phone]
--- OUTSIDE RECORDS SUMMARY | 2020-10-08 09:34 | XMS REPORT | Continuity of Care Document ---
:1985 Author Organization [facility] t Address [address] [place] [address] Care Team Providers Name Role Phone Araujo Attending Clinician Konrad MCDONALD Attending Clinician Viviane Mendez MD Attending Clinician Becky ARENAS Attending Clinician Sarah Johnson MD Attending Clinician So Gardner Attending Clinician Unavailable Brooks Sawant MD Attending Clinician Oni DOBSON Attending Clinician Renan Das Attending Clinician Jose Garcia MD Attending Clinician Leidy ARENAS M Attending Clinician Doctor Unassigned, Name Attending Clinician Unavailable Keri Clarke DO Attending Clinician Oren CONTRERAS Attending Clinician Joy ARENAS C Attending Clinician Shelton ARENAS Admitting Clinician Becky ARENAS Admitting Clinician Radha ARENAS, C Admitting Clinician Payers Payer Name Policy Type Policy Number Effective Date Expiration Date S ource Problems This patient has no known problems. Allergies, Adverse Reactions, Alerts Allergy Allergy Status Severity Reaction(s) Onset Inactive Treating Comm ents Source Name Type Date Date Clinician No Known DA Active U 2019-10 [facility] All[facility]ie 2-14 Clear s 00:00: Aquino 00 [facility] Social History Social Habit Start Date Stop Date Quantity Comments Source Sex Assigned At [facility] Medications This patient has no known medications. Procedures This patient has no known procedures. Plan of Care Planned Activity Planned Date Details Comments Source Future Scheduled Test 2020-07-24 00:00:00 IMM Influenza [facility] Seasonal Jul to December (>/= 19 yrs) [code = IMM Influenza Seasonal Jul to December (>/= 19 yrs)] Encounters Start End Encounter Admission Attending Care Care Encounter Source Date/Time Date/Time Type Type Clinicians Facility Department ID 2020-10-06 2020-10-06 Transition AraujoRachid malloyso 1.2.840.114 [id number] 00:00:00 00:00:00 of Care Henrietta Jo 350.1.13.10 [place] 4.2.7.2.686 [id number] 2020-10-04 2020-10-04 Emergency Konrad, TRAUMA 1.2.412.061 [id number] 14:21:00 16:02:00 [facility] 350.1.13.10 4.2.7.2.686 [id number] 2020-10-03 2020-10-04 [facility] Jamel Mendez 1.2.840. 114 [id number] 21:25:00 11:00:00 Encounter Erwin Pena 350.1.13.10 Ramila Johnson [facility] 4.2.7.2.686 [id number] 2020-10-04 2020-10-04 Case NEGRITO Gardner 1.2.840.114 [id number] 00:00:00 00:00:00 Management Roxann OTT 350.1.13.10 [facility] 4.2.7.2.686 [id number] 025 2020-10-02 2020-10-03 Hospital Rolan Sawantnie 1.2. 840.114 [id number] 16:21:00 15:55:00 Encounter Erwin Pena Malick 350.1.13.10 [facility] 4.2.7.2.686 [id number] 2020-10-03 2020-10-03 Patient Sharon Bunn 1.2.840.114 [id number] 00:00:00 00:00:00 Outreach Micki Jo 350.1.13.10 [place] 4.2.7.2.686 [id number] 2020-09-26 2020-10-02 [facility] Johana Baltazar Angie 1.2.840.11 4 [id number] 09:58:00 14:26:00 Encounter Delvis Garcia 350.1.13.1 0 [facility] 4.2.7.2.686 Erwin Pena [id number] 2020-09-23 2020-09-23 Orders Doctor NEGRITO 1.2.840.114 [id number] 00:00:00 00:00:00 Only Unassigned, MALICK 350.1.13.10 Boomer [facility] 4.2.7.2.686 [id number] 2020-09-20 2020-09-20 Emergency [facility] 1.2.840.114 [id number] 13:37:00 17:50:00 Iram Howe 350.1.13.10 [place] 4.2.7.2.686 [place] [id number] 084 2020-09-01 2020-09-01 Transition Sharon Araujo 1.2.840.114 [id number] 00:00:00 00:00:00 of Care Henrietta Jo 350.1.13.10 [place] 4.2.7.2.686 [id number] 2020-08-23 2020-08-30 [facility] Gauri Lott 1.2.840.1 14 [id number] 18:15:00 16:15:00 Encounter Ramila Johnson 350.1.13.[address]686 [id number] 094 2020-08-23 2020-08-23 Orders Doctor NEGRITO 1.2.840.114 [id number] 00:00:00 00:00:00 Only Unassigned, MALICK 350.1.13.[address] [id number] [id number] 2020-05-02 2020-05-02 Emergency [facility], [facility] 1.2.780.282 [id number] 02:29:01 07:27:00 Brett Howe 350.1.13.[address]2.686 [place] [id number] 084 Results Test Description Test Time Test Comments Results Result Comments Source SURG 2020-10-07 16:06:00 Test Item Value Reference Range Interpretation Comme nts SURG RUN DATE: (test 10/07/20 H [facility] PAGE 1 RUN TIME: 1607 code = Specimen Inquiry RUN USER: INTERFACE SURG) PATIENT: FIONA SANCHES JR LOC: RoseCHUCK U #: [id number] AGE/SX: 35/ M ROOM: WINTER RE10/06/20REG DR: Sreekanth Garcia MD : 84 BED: 3 DIS: STATUS: ADM Arcadio TLOC: SPEC #: [id number] RECD: STATUS: ELZA REQ #: [id number] MIRIAM: 10/06/[address]: Sreekanth Garcia MD ENTERED: 10/06/20 SP TYPE: SURG OTHR DR: DOES_NOT KNOW No Primary or Family Physician Juan Mcbride MD, Jignesh P MDORDERED: SURG PATH LVL 4 COPIES TO: DOES_NOT KNOW No Pr [place]ary [place] [address] [address] [email or web address] [address] [place] [address] Arnulfo Cormier MD [address] [address] HISTOLOGY: TISSUE ID BLK PCS KANWAL LEV PROCEDURE DISPOSIT ION ____ ___ ___ ___ ESOPHAGUS, NOS A 1 2 PROCEDURES: SURG PATH LVL 4 (10/06/20) TISSUES: A. ALANNAHA FRANKIE, NOS - ESOPHAGUS BIOPSY CLINICAL HISTORY ESOPHAGEAL FOOD BOLUS, STRICTURE V DYSMOTILI TY CONTINUED ON NEXT PAGE RUN DATE: 10/07/20 H [facility] - LAB PAGE 2 RUN TIME: 7327 Specimen Inquiry RUN USER: INTERFACE SPEC #: [facility]:[id number] PATIENT: FIONA SANCHES JR #[id number] (Continued) CPT CODES CPT CODE(S): 69353 , , , , , , FINAL DIAGNOS IS Esophagus, biopsy: ACUTE ESOPHAGITIS WITH CANDIDIASIS NEGATIVE FOR INTESTINAL METAPLASIA, D YSPLASIA, OR MALIGNANCY GROSS DESCRIPTION Esophagus biopsy. Received in formalin are mul tiple minute fragments of suarez soft tissue, 0.1 - 0.3 cm. The specimen is filtered in a teabag and ent irely submitted as A. ba/nr Grossing performed at [facility], [address] [place] [address], [address], [place] [address]. Linotype Machinist Apprentice: Abner Steward M.D. MICROSCOPIC DESCRIPTION Esophagus biopsy. Sections demonstrate squamous mucosa with a reactive appearance and increased acu te inflammation. Detached fragments of squamous mucosa are identified with associated fungal organ isms. No dysplasia or malignancy is seen. Alcian blue-PAS confirm the absence of intestinal metaplasia. Signed SIGNATURE ON FILE Deric Fink 10/07/20 1606 END OF REPO RT Novel Coronavirus 15:50:00 Test Item Value Reference Range Interpretation Comments Novel Coronavirus Negative Negative Positive r esults are 2019 Inhouse (test indicativ e of the presence code = [id number]) ofSARS-CoV -2 RNA, clinical correlation wit h patient historyand othe r diagnostic info rmation is necessary to determinepatien t infection status. Positiv e results do not rule out bacterial infection or co -infection with other viru ses. Negative result s do not preclude SARS-C oV-2 infection andsh ould not be used as the kayley e basis for patient managementdecis ions. Negative result s must be combined with otherclinical observations, p atient history, and epidemiological information . Detection of SARS-CoV-2 RNA may be affe cted bysample collec tion methods, storag e conditions, and /or stageof infection. Sue l RNA mutations, vacc inations, antiviraltherap eutics, antibiotics, chemotherapeuti c orimmunosuppres julius drugs have not been e valuated for effectson d etection. Results are for the identification of SARS-CoV-2 RNA usingthe Sanders M2000 Sy stem under the FDA Emergen cy UseAuthorizatio n. The testing is perf ormed by brandi craft in the procedures for the Sanders M2000 molecular diagnostic SARS-CoV-2 assa y in vitro. Novel Coronavirus 15:50:00 Test Item Value Reference Range Interpretation Comments Novel Coronavirus Negative Negative Positive r esults are 2019 Inhouse (test indicativ e of the presence code = [id number]) ofSARS-CoV -2 RNA, clinical correlation wit h patient historyand othe r diagnostic info rmation is necessary to determinepatien t infection status. Positiv e results do not rule out bacterial infection or co -infection with other viru ses. Negative result s do not preclude SARS-C oV-2 infection andsh ould not be used as the kayley e basis for patient managementdecis ions. Negative result s must be combined with otherclinical observations, p atient history, and epidemiological information . Detection of SARS-CoV-2 RNA may be affe cted bysample collec tion methods, storag e conditions, and /or stageof infection. Sue l RNA mutations, vacc inations, antiviraltherap eutics, antibiotics, chemotherapeuti c orimmunosuppres julius drugs have not been e valuated for effectson d etection. Results are for the identification of SARS-CoV-2 RNA usingthe [employer] M2000 Sy stem under the FDA Emergen cy UseAuthorizatio n. The testing is perf ormed by personneltraine d in the procedures for the [employer] M2000 molecular diagnostic SARS-CoV-2 assa y in vitro. CBC W/AUTO [id number] 13:10:00 Test Item Value Reference Range Interpretation Comments WHITE BLOOD CELL 6.7 K/mm3 3.5-11.0 N (test code = WBC) RED BLOOD CELL (test 3.34 M/mm3 4.70-6.10 L code = RBC) HEMOGLOBIN (test code 9.4 G/DL 12.3-15.9 L = HGB) HEMATOCRIT (test code 28.9 % 35.8-46.7 L = HCT) MEAN CELL VOLUME 86.5 Fl 86.3-98.9 N (test code = MCV) MEAN CELL HGB (test 28.1 pg 28.9-34.4 L code = MCH) MEAN CELL HGB 32.5 G/DL 32.1-34.5 N CONCETRATION (test code = MCHC) RED CELL DISTRIBUTION 14.6 SD 11.5-14.5 H WIDTH (test code = RDW) PLATELET COUNT (test 55 K/mm3 150-450 L code = PLT) MEAN PLATELET VOLUME 12.60 fL 7.0-9.6 H (test code = MPV) NEUTROPHIL % (test 72.0 % 40-76 N code = NT%) IMMATURE GRANULOCYTE 0.4 % 0.0-5.0 N % (test code = IG%) LYMPHOCYTE % (test 22.1 % 20.5-51.1 N code = LY%) MONOCYTE % (test code 5.5 % 1.7-9.3 N = MO%) EOSINOPHIL % (test 0.0 % 0.0-6.0 N code = EO%) BASOPHIL % (test code 0.0 % 0.0-2.0 N = BA%) NUCLEATED RBC % (test 0.0 /100WBC% 0.0-1.0 N code = NRBC%) NEUTROPHIL # (test 4.9 K/mm3 1.8-7.6 N code = NT#) IMMATURE GRANULOCYTE 0.03 x10 3/uL 0.00-0.03 N # (test code = IG#) LYMPHOCYTE # (test 1.5 K/mm3 0.6-3.0 N code = LY#) MONOCYTE # (test code 0.4 K/mm3 0.2-1.5 N = MO#) EOSINOPHIL # (test 0.0 K/mm3 0.0-0.4 N code = EO#) BASOPHIL # (test code 0.0 K/mm3 0.0-0.2 N = BA#) NUCLEATED RBC # (test 0.0 K/mm3 0.00-0.01 N code = NRBC#) MANUAL DIFF REQUIRED NO DIFF/SCN CRITERIA SLIDE R FRANKW (test code = MDIFF) CONSISTA NT WITH AUTO DIFFERENTI AL. CBC W/AUTO [id number] 13:10:00 Test Item Value Reference Range Interpretation Comments WHITE BLOOD CELL 6.7 K/mm3 3.5-11.0 N (test code = WBC) RED BLOOD CELL (test 3.34 M/mm3 4.70-6.10 L code = RBC) HEMOGLOBIN (test code 9.4 G/DL 12.3-15.9 L = HGB) HEMATOCRIT (test code 28.9 % 35.8-46.7 L = HCT) MEAN CELL VOLUME 86.5 Fl 86.3-98.9 N (test code = MCV) MEAN CELL HGB (test 28.1 pg 28.9-34.4 L code = MCH) MEAN CELL HGB 32.5 G/DL 32.1-34.5 N CONCETRATION (test code = MCHC) RED CELL DISTRIBUTION 14.6 SD 11.5-14.5 H WIDTH (test code = RDW) PLATELET COUNT (test 55 K/mm3 150-450 L code = PLT) MEAN PLATELET VOLUME 12.60 fL 7.0-9.6 H (test code = MPV) NEUTROPHIL % (test 72.0 % 40-76 N code = NT%) IMMATURE GRANULOCYTE 0.4 % 0.0-5.0 N % (test code = IG%) LYMPHOCYTE % (test 22.1 % 20.5-51.1 N code = LY%) MONOCYTE % (test code 5.5 % 1.7-9.3 N = MO%) EOSINOPHIL % (test 0.0 % 0.0-6.0 N code = EO%) BASOPHIL % (test code 0.0 % 0.0-2.0 N = BA%) NUCLEATED RBC % (test 0.0 /100WBC% 0.0-1.0 N code = NRBC%) NEUTROPHIL # (test 4.9 K/mm3 1.8-7.6 N code = NT#) IMMATURE GRANULOCYTE 0.03 x10 3/uL 0.00-0.03 N # (test code = IG#) LYMPHOCYTE # (test 1.5 K/mm3 0.6-3.0 N code = LY#) MONOCYTE # (test code 0.4 K/mm3 0.2-1.5 N = MO#) EOSINOPHIL # (test 0.0 K/mm3 0.0-0.4 N code = EO#) BASOPHIL # (test code 0.0 K/mm3 0.0-0.2 N = BA#) NUCLEATED RBC # (test 0.0 K/mm3 0.00-0.01 N code = NRBC#) MANUAL DIFF REQUIRED NO DIFF/SCN CRITERIA SLIDE R EVSANDRAW (test code = MDIFF) CONSISTA NT WITH AUTO DIFFERENTI AL. RBC [id number] 13:10:00 Test Item Value Reference Range Interpretation Comments PLATELET ESTIMATE DECREASED THOUSAND ADEQUATE PLAT ELET COUNT (test code = REVIEWED AND PLTEST) VERIFIED. PLATELET MORPHOLOGY NORMAL (test code = PLTMORPH) CBC W/AUTO [id number] 13:10:00 Test Item Value Reference Range Interpretation Comments WHITE BLOOD CELL 6.7 K/mm3 3.5-11.0 N (test code = WBC) RED BLOOD CELL (test 3.34 M/mm3 4.70-6.10 L code = RBC) HEMOGLOBIN (test code 9.4 G/DL 12.3-15.9 L = HGB) HEMATOCRIT (test code 28.9 % 35.8-46.7 L = HCT) MEAN CELL VOLUME 86.5 Fl 86.3-98.9 N (test code = MCV) MEAN CELL HGB (test 28.1 pg 28.9-34.4 L code = MCH) MEAN CELL HGB 32.5 G/DL 32.1-34.5 N CONCETRATION (test code = MCHC) RED CELL DISTRIBUTION 14.6 SD 11.5-14.5 H WIDTH (test code = RDW) PLATELET COUNT (test 55 K/mm3 150-450 L code = PLT) MEAN PLATELET VOLUME 12.60 fL 7.0-9.6 H (test code = MPV) NEUTROPHIL % (test 72.0 % 40-76 N code = NT%) IMMATURE GRANULOCYTE 0.4 % 0.0-5.0 N % (test code = IG%) LYMPHOCYTE % (test 22.1 % 20.5-51.1 N code = LY%) MONOCYTE % (test code 5.5 % 1.7-9.3 N = MO%) EOSINOPHIL % (test 0.0 % 0.0-6.0 N code = EO%) BASOPHIL % (test code 0.0 % 0.0-2.0 N = BA%) NUCLEATED RBC % (test 0.0 /100WBC% 0.0-1.0 N code = NRBC%) NEUTROPHIL # (test 4.9 K/mm3 1.8-7.6 N code = NT#) IMMATURE GRANULOCYTE 0.03 x10 3/uL 0.00-0.03 N # (test code = IG#) LYMPHOCYTE # (test 1.5 K/mm3 0.6-3.0 N code = LY#) MONOCYTE # (test code 0.4 K/mm3 0.2-1.5 N = MO#) EOSINOPHIL # (test 0.0 K/mm3 0.0-0.4 N code = EO#) BASOPHIL # (test code 0.0 K/mm3 0.0-0.2 N = BA#) NUCLEATED RBC # (test 0.0 K/mm3 0.00-0.01 N code = NRBC#) MANUAL DIFF REQUIRED NO DIFF/SCN CRITERIA SLIDE Lisa COELHO (test code = MDIFF) CONSISTA NT WITH AUTO DIFFERENTI AL. COMPREHENSIVE METABOLIC [id number] 11:48:00 Test Item Value Reference Range Interpretation Comments SODIUM (test code = NA) 140 mmol/L 134-147 N POTASSIUM (test code = 4.6 mmol/L 3.4-5.0 N K) CHLORIDE (test code = 110 mmol/L 100-108 H CL) CARBON DIOXIDE (test 26 mmol/L 21-32 N code = CO2) ANION GAP (test code = 4.0 GAP calc 4.0-15.0 N GAP) GLUCOSE (test code = 47 MG/DL 70-110 L GLU) BLOOD UREA NITROGEN 30 MG/DL 7-18 H (test code = BUN) GLOMERULAR FILTRATION >=60 max estimate >60 RATE (test code = GFR) estGFR CREATININE (test code = 0.5 MG/DL 0.8-1.3 L CREAT) TOTAL PROTEIN (test code 5.6 G/DL 6.4-8.2 L = PROT) ALBUMIN (test code = 2.1 G/DL 3.4-5.0 L ALB) GLOBULIN (test code = 3.5 GM/dL GLOB) ALBUMIN/GLOBULIN RATIO 0.6 RATIO 1.2-2.2 L (test code = A/G) CALCIUM (test code = CA) 7.3 MG/DL 8.5-10.1 L BILIRUBIN TOTAL (test 0.60 MG/DL 0.2-1.2 N code = BILT) SGOT/AST (test code = 142 Unit/L 15-37 H AST) SGPT/ALT (test code = 322 Unit/L 12-78 H ALT) ALKALINE PHOSPHATASE 675 Unit/L 50-136 H TOTAL (test code = ALKP) CBC W/AUTO [id number] 11:33:00 Test Item Value Reference Range Interpretation Comments WHITE BLOOD CELL (test code = WBC) 6.7 K/mm3 3.5-11.0 N RED BLOOD CELL (test code = RBC) 3.34 M/mm3 4.70-6.10 L HEMOGLOBIN (test code = HGB) 9.4 G/DL 12.3-15.9 L HEMATOCRIT (test code = HCT) 28.9 % 35.8-46.7 L MEAN CELL VOLUME (test code = MCV) 86.5 Fl 86.3-98.9 N MEAN CELL HGB (test code = MCH) 28.1 pg 28.9-34.4 L MEAN CELL HGB CONCETRATION (test 32.5 G/DL 32.1-34.5 N code = MCHC) RED CELL DISTRIBUTION WIDTH (test SD 11.5-14.5 H code = RDW) PLATELET COUNT (test code = PLT) 55 K/mm3 150-450 L MEAN PLATELET VOLUME (test code = fL 7.0-9.6 H MPV) NEUTROPHIL % (test code = NT%) % 40-76 N IMMATURE GRANULOCYTE % (test code % 0.0-5.0 N = IG%) LYMPHOCYTE % (test code = LY%) % 20.5-51.1 N MONOCYTE % (test code = MO%) % 1.7-9.3 N EOSINOPHIL % (test code = EO%) % 0.0-6.0 N BASOPHIL % (test code = BA%) % 0.0-2.0 N NUCLEATED RBC % (test code = /100WBC% 0.0-1.0 N NRBC%) NEUTROPHIL # (test code = NT#) K/mm3 1.8-7.6 N IMMATURE GRANULOCYTE # (test code x10 3/uL 0.00-0.03 N = IG#) LYMPHOCYTE # (test code = LY#) K/mm3 0.6-3.0 N MONOCYTE # (test code = MO#) K/mm3 0.2-1.5 N EOSINOPHIL # (test code = EO#) K/mm3 0.0-0.4 N BASOPHIL # (test code = BA#) K/mm3 0.0-0.2 N NUCLEATED RBC # (test code = K/mm3 0.00-0.01 N NRBC#) MANUAL DIFF REQUIRED (test code = DIFF/SCN CRITERIA MDIFF) [id number] 04:59:00 Test Item Value Reference Range Interpretation Comments AMMONIA (test code = AMM) 56 mcMOL/L 11-32 H LACTIC [id number] 04:59:00 Test Item Value Reference Range Interpretation Comments LACTIC ACID (test code = LACT) 0.7 mmol/L 0.4-2.0 N GLUCOSE BEDSIDE [id number] 20:35:00 Test Item Value Reference Range Interpretation Comments GLUCOSE BEDSIDE TESTING (test code 109 mg/dL 70-110 N = GLUBED) GLUCOSE BEDSIDE [id number] 17:10:00 Test Item Value Reference Range Interpretation Comments GLUCOSE BEDSIDE TESTING (test code 105 mg/dL 70-110 N = GLUBED) - US ABDOMEN [id number] 16:39:00 [facility] 1985 Sex: M Name: FIONA SANCHES JR [facility] : 1985 Age/S: 35 / M [address] Unit #: [id number] Loc: [place] [address] Phys: Matilda Kirk PA-C Acct: [id number] Dis Date: Status: ADM IN PHONE#: [phone] Exam Date: 10/06/2020 0555 FAX #: Reason:elevated lfts, evaluate for cirrhosis EXAMS: CPT: [id number] US ABDOMEN LTD 19140 RIGHT UPPER QUADRANT ULTRASOUND. CLINICAL HISTORY: Elevated liver function tests, evaluatefor cirrhosis COMPARISON: CT chest dated October 06, 2020 COMMENT: Grayscale and selected color Doppler ultrasound of the right upper quadrant was performed. The liver demonstrates normal echogenicity. No focal mass or intrahepatic biliary ductal dilatation is seen. The right lobe measures approximately 12.8 cm in craniocaudal dimension. Trace ascites is seen adjacent to the tip of the right hepatic lobe and in Morison's pouch. The gallbladder is mildly distended. No intraluminal gallstones are present. The gallbladder wall measures 1.6 mm in thickness. The common bile duct measures 5.3 mm diameter. There is no pericholecystic fluid. Sonographic Calle's test is negative. The main portal vein demonstrates normal hepatopetal flow. The right kidney measures 9.3 x 4 x 4.8 cm. Mild right renal pelviectasis noted. Evaluation of the pancreasis limited due to overlying bowel gas. IMPRESSION: 1. Trace ascites is noted in the upper abdomen. 2. Mild right renal pelviectasis.3. Mild distention of the gallbladder. No gallstones are identified. Location Code: R16 at 1639 Reported and signed by: Eh Barajas M.D. PAGE 1 Signed Report (CONTINUED) Name: FIONA SANCHES JR [place] : 1985 Age/S: 35 / M [address] Unit #: [id number] Loc: [place] [address] Phys: Matilda Kirk PA-C Acct: [id number] Dis Date: Status: ADM IN PHONE #: [phone] Exam Date: 10/06/2020 1515FAX #: Reason: elevated lfts, evaluate for cirrhosis EXAMS: CPT: [id number] ABDOMEN LTD 21456 <Continued> CC: Sreekanth Garcia MD; Matilda Kirk Technologist: [facility] Date/Time: 10/06/2020 (2339) t.[id number].[id number] PAGE 2 Signed Report Name: FIONA SANCHES JR [place] : 1985 Age/S: 35 / M [address] Unit #: [id number] Loc: [place] [address] Phys: Matilda Kirk PA-C Acct: [id number] Dis Date: Status: ADM IN PHONE #: [phone] Exam Date: 10/06/2020 1515 FAX #: Reason: elevated lfts, evaluate for cirrhosis EXAMS: CPT: [id number] US ABDOMEN LTD 91905 <Continued> Orig Print D/T: S: 10/06/2020 (5502) Probe: PAGE 3 Signed ReportUA RFLX MICR CULT IF [id number] 15:23:00 Test Item Value Reference Range Interpretation Comments UA COLOR (test code = YELLOW discript YEL/STRAW COLU) UA APPEARANCE (test code HAZY discript CLEAR A = APPU) UA GLUCOSE DIPSTICK (test NEGATIVE mg/dL NEG code = DGLUU) UA BILIRUBIN DIPSTICK NEGATIVE mg/dL NEG (test code = BILU) UA KETONE DIPSTICK (test NEGATIVE mg/dL NEG code = KETU) UA SPECIFIC GRAVITY (test 1.015 SG 1.005-1.030 code = SGU) UA BLOOD DIPSTICK (test 1+ mg/DL NEG A code = ARMIN) UA PH DIPSTICK (test code 7.0 pH UNITS 5.0-7.0 = ALKA) UA PROTEIN DIPSTICK (test NEGATIVE mg/dL NEG code = PROU) UA UROBILINIOGEN DIPSTICK 0.2 mg/dL <2.0 (test code = URO) UA NITRITE DIPSTICK (test NEGATIVE SCREEN NEG code = NICK) UA LEUKOCYTE ESTERASE 1+ Leuk/mcL NEGATIVE A DIPSTICK (test code = LEUU) UA WBC (test code = WBCU) 10-20 #WBC/HPF 0-3 A UA RBC (test code = RBCU) 30-40 #RBC/HPF 0-3 A UA BACTERIA (test code = 2+ /HPF NONE-TRACE A BACU) UA SQUAMOUS CELLS (test TRACE /HPF NONE code = SQU) UA CULTURE NEEDED? (test YES,WBC>10 & EPI<25 Culture CHK code = UACULT) Criteria Indication for culture: RiskForSepsis-no oth srcUA RFLX MICR CULT IF [id number] 15:09:00 Test Item Value Reference Range Interpretation Comments UA COLOR (test code = COLU) YELLOW discript YEL/STRAW UA APPEARANCE (test code = HAZY discript CLEAR A APPU) UA GLUCOSE DIPSTICK (test NEGATIVE mg/dL NEG code = DGLUU) UA BILIRUBIN DIPSTICK (test NEGATIVE mg/dL NEG code = BILU) UA KETONE DIPSTICK (test code NEGATIVE mg/dL NEG = KETU) UA SPECIFIC GRAVITY (test 1.015 SG 1.005-1.030 code = SGU) UA BLOOD DIPSTICK (test code 1+ mg/DL NEG A = ARMIN) UA PH DIPSTICK (test code = 7.0 pH UNITS 5.0-7.0 ALKA) UA PROTEIN DIPSTICK (test NEGATIVE mg/dL NEG code = PROU) UA UROBILINIOGEN DIPSTICK 0.2 mg/dL <2.0 (test code = URO) UA NITRITE DIPSTICK (test NEGATIVE SCREEN NEG code = NICK) UA LEUKOCYTE ESTERASE 1+ Leuk/mcL NEGATIVE A DIPSTICK (test code = LEUU) UA CULTURE NEEDED? (test code Criteria Culture CHK = UACULT) Indication for culture: RiskForSepsis-no oth srcGLUCOSE BEDSIDE TESTING 2020-10-06 13:39:00 Test Item Value Reference Range Interpretation Comments GLUCOSE BEDSIDE TESTING (test code = 92 mg/dL 70-110 N GLUBED) GLUCOSE BEDSIDE [id number] 13:37:00 Test Item Value Reference Range Interpretation Comments GLUCOSE BEDSIDE TESTING (test code = 58 mg/dL 70-110 L GLUBED) CREATINE KINASE (CK)2020-10-06 11:26:00 Test Item Value Reference Range Interpretation Comments CREATINE KINASE (CK) (test code = 287 Unit/L 26-192 H CK) [id number] 11:26:00 Test Item Value Reference Range Interpretation Comments AMYLASE (test code = JOSE CARLOS) 120 Unit/L 25-115 H [id number] 11:26:00 Test Item Value Reference Range Interpretation Comments LIPASE (test code = LIP) 112 Unit/L 114-286 L CBC W/AUTO [id number] 09:58:00 Test Item Value Reference Range Interpretation Comments WHITE BLOOD CELL 9.4 K/mm3 3.5-11.0 N (test code = WBC) RED BLOOD CELL (test 3.79 M/mm3 4.70-6.10 L code = RBC) HEMOGLOBIN (test 10.8 G/DL 12.3-15.9 L code = HGB) HEMATOCRIT (test 32.8 % 35.8-46.7 L code = HCT) MEAN CELL VOLUME 86.5 Fl 86.3-98.9 N (test code = MCV) MEAN CELL HGB (test 28.5 pg 28.9-34.4 L code = MCH) MEAN CELL HGB 32.9 G/DL 32.1-34.5 N CONCETRATION (test code = MCHC) RED CELL 14.6 SD 11.5-14.5 H DISTRIBUTION WIDTH (test code = RDW) PLATELET COUNT (test 54 K/mm3 150-450 L code = PLT) MEAN PLATELET VOLUME TEST NOT 7.0-9.6 UNABLE TO (test code = MPV) PERFORMED fL CALCULATE MANUAL DIFF REQUIRED YES DIFF/SCN CRITERIA (test code = MDIFF) WBC [id number] 09:58:00 Test Item Value Reference Range Interpretation Comments SEGMENTED NEUTROPHILS 74 % 40-75 N (test code = SEG) BAND NEUTROPHIL (test 8 % 0-8 N code = BAND) LYMPHOCYTE (test code 13 % 12.6-43.5 N = LYMPH) MONOCYTE (test code = 5 % 4.2-12.7 N MON) POLYCHROMASIA (test TRACE ON SCAN NONE code = POLC) HYPOCHROMIA (test code TRACE ON SCAN NONE = HYPO) POIKILOCYTOSIS (test TRACE ON SCAN NONE code = POIK) ANISOCYTOSIS (test TRACE NONE code = ANISO) PLATELET ESTIMATE DECREASED ADEQUATE ESTIMATED (test code = PLTEST) THOUSAND PLATELE T RANGE = 56,000 - 70,000 PLATELET MORPHOLOGY NORMAL (test code = PLTMORPH) CBC W/AUTO [id number] 09:55:00 Test Item Value Reference Range Interpretation Comments WHITE BLOOD CELL 9.4 K/mm3 3.5-11.0 N (test code = WBC) RED BLOOD CELL (test 3.79 M/mm3 4.70-6.10 L code = RBC) HEMOGLOBIN (test 10.8 G/DL 12.3-15.9 L code = HGB) HEMATOCRIT (test 32.8 % 35.8-46.7 L code = HCT) MEAN CELL VOLUME 86.5 Fl 86.3-98.9 N (test code = MCV) MEAN CELL HGB (test 28.5 pg 28.9-34.4 L code = MCH) MEAN CELL HGB 32.9 G/DL 32.1-34.5 N CONCETRATION (test code = MCHC) RED CELL 14.6 SD 11.5-14.5 H DISTRIBUTION WIDTH (test code = RDW) PLATELET COUNT (test 54 K/mm3 150-450 L code = PLT) MEAN PLATELET VOLUME TEST NOT 7.0-9.6 UNABLE TO (test code = MPV) PERFORMED fL CALCULATE MANUAL DIFF REQUIRED YES DIFF/SCN CRITERIA (test code = MDIFF) WBC [id number] 09:55:00 Test Item Value Reference Range Interpretation Comments SEGMENTED NEUTROPHILS (test code = SEG) % 40-75 LYMPHOCYTE (test code = LYMPH) % 12.6-43.5 CBC W/AUTO [id number] 09:55:00 Test Item Value Reference Range Interpretation Comments WHITE BLOOD CELL 9.4 K/mm3 3.5-11.0 N (test code = WBC) RED BLOOD CELL (test 3.79 M/mm3 4.70-6.10 L code = RBC) HEMOGLOBIN (test 10.8 G/DL 12.3-15.9 L code = HGB) HEMATOCRIT (test 32.8 % 35.8-46.7 L code = HCT) MEAN CELL VOLUME 86.5 Fl 86.3-98.9 N (test code = MCV) MEAN CELL HGB (test 28.5 pg 28.9-34.4 L code = MCH) MEAN CELL HGB 32.9 G/DL 32.1-34.5 N CONCETRATION (test code = MCHC) RED CELL 14.6 SD 11.5-14.5 H DISTRIBUTION WIDTH (test code = RDW) PLATELET COUNT (test 54 K/mm3 150-450 L code = PLT) MEAN PLATELET VOLUME TEST NOT 7.0-9.6 UNABLE TO (test code = MPV) PERFORMED fL CALCULATE MANUAL DIFF REQUIRED YES DIFF/SCN CRITERIA (test code = MDIFF) WBC [id number] 09:55:00 Test Item Value Reference Range Interpretation Comments SEGMENTED NEUTROPHILS (test code = SEG) % 40-75 LYMPHOCYTE (test code = LYMPH) % 12.6-43.5 COMPREHENSIVE METABOLIC [id number] 09:14:00 Test Item Value Reference Range Interpretation Comments SODIUM (test code = NA) 143 mmol/L 134-147 N POTASSIUM (test code = 4.4 mmol/L 3.4-5.0 N K) CHLORIDE (test code = 113 mmol/L 100-108 H CL) CARBON DIOXIDE (test 26 mmol/L 21-32 N code = CO2) ANION GAP (test code = 4.0 GAP calc 4.0-15.0 N GAP) GLUCOSE (test code = 78 MG/DL 70-110 N GLU) BLOOD UREA NITROGEN 43 MG/DL 7-18 H (test code = BUN) GLOMERULAR FILTRATION >=60 max estimate >60 RATE (test code = GFR) estGFR CREATININE (test code = 0.6 MG/DL 0.8-1.3 L CREAT) TOTAL PROTEIN (test code 5.9 G/DL 6.4-8.2 L = PROT) ALBUMIN (test code = 2.2 G/DL 3.4-5.0 L ALB) GLOBULIN (test code = 3.7 GM/dL GLOB) ALBUMIN/GLOBULIN RATIO 0.6 RATIO 1.2-2.2 L (test code = A/G) CALCIUM (test code = CA) 7.5 MG/DL 8.5-10.1 L BILIRUBIN TOTAL (test 0.90 MG/DL 0.2-1.2 N code = BILT) SGOT/AST (test code = 240 Unit/L 15-37 H AST) SGPT/ALT (test code = 387 Unit/L 12-78 H ALT) ALKALINE PHOSPHATASE 794 Unit/L 50-136 H TOTAL (test code = ALKP) CBC W/AUTO [id number] 09:02:00 Test Item Value Reference Range Interpretation Comments WHITE BLOOD CELL 9.4 K/mm3 3.5-11.0 N (test code = WBC) RED BLOOD CELL (test 3.79 M/mm3 4.70-6.10 L code = RBC) HEMOGLOBIN (test 10.8 G/DL 12.3-15.9 L code = HGB) HEMATOCRIT (test 32.8 % 35.8-46.7 L code = HCT) MEAN CELL VOLUME 86.5 Fl 86.3-98.9 N (test code = MCV) MEAN CELL HGB (test 28.5 pg 28.9-34.4 L code = MCH) MEAN CELL HGB 32.9 G/DL 32.1-34.5 N CONCETRATION (test code = MCHC) RED CELL SD 11.5-14.5 H DISTRIBUTION WIDTH (test code = RDW) PLATELET COUNT (test 54 K/mm3 150-450 L code = PLT) MEAN PLATELET VOLUME TEST NOT 7.0-9.6 UNABLE TO (test code = MPV) PERFORMED fL CALCULATE NEUTROPHIL % (test % 40-76 H code = NT%) IMMATURE GRANULOCYTE % 0.0-5.0 N % (test code = IG%) LYMPHOCYTE % (test % 20.5-51.1 L code = LY%) MONOCYTE % (test % 1.7-9.3 N code = MO%) EOSINOPHIL % (test % 0.0-6.0 N code = EO%) BASOPHIL % (test % 0.0-2.0 N code = BA%) NUCLEATED RBC % /100WBC% 0.0-1.0 N (test code = NRBC%) NEUTROPHIL # (test K/mm3 1.8-7.6 N code = NT#) IMMATURE GRANULOCYTE x10 3/uL 0.00-0.03 H # (test code = IG#) LYMPHOCYTE # (test K/mm3 0.6-3.0 N code = LY#) MONOCYTE # (test K/mm3 0.2-1.5 N code = MO#) EOSINOPHIL # (test K/mm3 0.0-0.4 N code = EO#) BASOPHIL # (test K/mm3 0.0-0.2 N code = BA#) NUCLEATED RBC # K/mm3 0.00-0.01 N (test code = NRBC#) MANUAL DIFF REQUIRED DIFF/SCN CRITERIA (test code = MDIFF) GLUCOSE BEDSIDE [id number] 06:41:00 Test Item Value Reference Range Interpretation Comments GLUCOSE BEDSIDE TESTING (test code = 65 mg/dL 70-110 L GLUBED) COVID 19 INHOUSE [id number] 05:40:00 Test Item Value Reference Range Interpretation Comments COVID 19 INHOUSE AG NEGATIVE Negative Per [facility] facturer, (test code = negative result s should [id number]) be treated aspr esumptive and, if inconsi stent with clinical signs andsymptoms or necessary for patient man agement, should betested with an alternative mol ecular assay. Negative resultsdo not preclude SA RS-CoV-2 infection and s hould not be usedas the s ole basis for patient man agement decisions. Neg ative results should be considered in t he context of apatient's r ecent exposures, hist ory, presence of cli nicalsigns and symptoms co nsistent with COVID-19. - CT CHEST [id number] 03:30:00 [facility] 1985 Sex: M Name: FIONA SANCHES JR [facility] : 1985 Age/S: 35 / M [id number] Unit #: [id number] Loc: [place] [address] Phys: Scott Person MD Acct: [id number] Dis Date: Status: REG ER PHONE#: [phone] Exam Date: 10/06/2020 0245 FAX #: Reason:possible esophageal pneumatosis EXAMS: CPT: [id number] CT CHEST W/CONTRAST 57356 DICTATION LOCATION: H48 HISTORY: Male, 35 years of age with esophageal pain for 2 months; evaluate for esophageal pneumatosis EXAM: CT CHEST WITH IV CONTRAST (ROUTINE) COMPARISON: None TECHNIQUE: Helical axial images were obtained through the chest with 100 mL nonionic IV contrast using the routine chest protocol. Coronal and sagittal reformats were performed. One or more of the following dose reduction techniques were used: Automated exposure control; adjustment of the mA and/or kV according to the patient size;and/or use of iterative reconstruction technique. STATEMENT: Exam quality is acceptable. FINDINGS: AORTA: No aneurysm or dissection. PULMONARY ARTERIES: Within normal limits caliber. HEART: Heart size within normal limits. No significant pericardial effusion. MEDIASTINUM: No pathologically enlarged lymph nodes by CT criteria. Visualized portions of thyroid gland unremarkable. The esophagus is dilated throughout measuring up to 5.0 cm transverse dimension and 2.6 cm AP dimension. The esophageal lumen is filled with food material and fluid. Concentric ring of tiny bubbles is seen surrounding the foodbolus within the esophageal lumen. I do not identify esophageal intramural pneumatosis or pneumomediastinum. No discrete esophageal mass lesion. There is tapered esophageal narrowing at the gastroesophageal junction. PLEURA: No pleural effusions. LUNGS: Patchy multifocal multilobar ground glass interstitial opacities are scattered throughout both lungs with lower lobe predominance. No matthieu lobar consolidation or mass. No tracheobronchial filling defect. No significant emphysema. OTHER: Images through the upper abdomen show a paucity of air in stomach. There is some air in what can be seen of the splenic flexure of colon. No acute osseous abnormality. IMPRESSION: 1. Esophagus is diffusely distended with intraluminal food bolus surrounded by intraluminal esophageal air. Suspect distal esophageal obstruction from stricture, achalasia, or connective tissue disorder PAGE 1 Signed Report (CONTINUED) Name: FIONA SANCHES JR : 1985 Age/S: 35 / M [address] Unit #: [id number] Loc: [place] [address] Phys: Phil Person Acct: [id number] Dis Date: Status: REG ER PHONE #: [phone] Exam Date: 10/06/2020 0245 FAX #: Reason: possible esophageal pneumatosisEXAMS: CPT: [id number] CT CHEST W/CONTRAST 76443 <Continued> (i.e. scleroderma or dermatomyositis). Infiltrative neoplasm is included differential but I do not identify a distinct mass. 2. No evidence for esophageal pneumatosis or pneumomediastinum. 3. Multi lobar groundglass interstitial pneumonia. Commonly reported imaging features of COVID-19 pneumonia are present. Other processes such as aspiration pneumonia, influenza pneumonia and organizing pneumonia, as seen with drug toxicity and connective tissue disease, can cause a similar imaging pattern. at 0330 Reported and signed by: Alyx Ma MD CC: Technologist:Valentine Momin, RT(R)(CT); CTDI: DLP: Trnscb Date/Time: 10/06/2020 (329) [email or web address] Orig Print D/T: S: 10/06/2020 (332) PAGE 2 Signed Report- CT NECK [id number] 03:11:00 [facility] : 1985 Sex: M [facility]: [facility] [place] [facility] 1985 Age/S: 35 / M [address] Unit #: [id number] Loc: [place] [address] Phys: Scott Person MD Acct: [id number] Dis Date: Status: REG ER PHONE#: [phone] Exam Date: 10/06/2020 0250 FAX #: Reason:possible esophageal pneumatosis EXAMS: CPT: [id number] CT NECK W/CONTRAST 90388 EXAM: - CT NECK W/CONTRAST LOCATION: H57 INDICATION: 35 years -old Male with possible esophageal pneumatosis COMPARISON: None available at time of interpretation. TECHNIQUE: Contrast enhanced CT of the neck with sagittal and coronal reformats. This exam was performed according to our departmental dose-optimization program, which includes automated exposure control, adjustment of the mA and/or kV according to patient size and/or use of iterative reconstruction technique. FINDINGS: Paucity of fatlimits evaluation. The pharynx, transglottic airway, visualized trachea, visualized esophagus are unremarkable. The visualized orbits and intracranial compartment are normal. The paranasal sinuses are clear. Salivary and thyroid glands are n ormal in appearance. No cervical lymphadenopathy. The bones and soft tissues are unremarkable. Please refer to dedicated concurrent CT chest for additional thoracic findings. IMPRESSION: Unremarkable CT neck. at 0311 Reported and signed by: Gianni Otero M.D. PAGE 1 Signed Report (CONTINUED) Name: FIONA SANCHES JR [place] : 1985 Age/S: 35 / M [address] Unit #: [id number] Loc: [place] [address] Phys: Scott Person MD Acct: [id number] Dis Date: Status: REG ER PHONE #: [phone] Exam Date: 10/06/2020 0250 FAX #: Reason: possible esophageal pneumatosis EXAMS: CPT: [id number] CT NECK W/CONTRAST 39142 <Continued> CC: Technologist:Valentine Momin, RT(R)(CT); CTDI: DLP: Trnscb Date/Time: 10/06/2020 (310) [email or web address] Orig Print D/T: S: 10/06/2020 (313) PAGE 2 Signed Report BASIC METABOLIC [id number] 02:14:00 Test Item Value Reference Range Interpretation Comments SODIUM (test code = NA) 143 mmol/L 134-147 N POTASSIUM (test code = 4.6 mmol/L 3.4-5.0 N K) CHLORIDE (test code = 112 mmol/L 100-108 H CL) CARBON DIOXIDE (test 26 mmol/L 21-32 N code = CO2) ANION GAP (test code = 5.0 GAP calc 4.0-15.0 N GAP) GLUCOSE (test code = 49 MG/DL 70-110 L GLU) BLOOD UREA NITROGEN 43 MG/DL 7-18 H (test code = BUN) GLOMERULAR FILTRATION >=60 max estimate >60 RATE (test code = GFR) estGFR CREATININE (test code = 0.7 MG/DL 0.8-1.3 L CREAT) CALCIUM (test code = CA) 7.8 MG/DL 8.5-10.1 L
--- OUTSIDE RECORDS SUMMARY | 2020-10-08 09:41 | XMS REPORT | Summary of Care ---
:1985 Author Organization [facility] Address [address] [place] [id number] Care Team Providers Name Role Phone Pcp, Does Not Have A Primary Care Provider Reason for Visit Reason Comments Transition Of Care Encounter Details Date Type Department Care Team Description 10/06/2020 Transition of Care [facility] Conor Araujo Transition Of Care [address] [address] Allergies No Known Allergiesdocumented as of this encounter (statuses as of 10/06/2020) Medications No known medicationsdocumented as of this encounter (statuses as of 10/06/2020) Active Problems Problem Noted Date Severe nausea and vomiting 10/04/2020 Epigastric abdominal pain 10/02/2020 Abdominal pain 09/26/2020 E46 Unspecified severe protein-calorie malnutrition 1 10/25/2019 Dysphagia 08/24/2020 Hypokalemia 08/24/2020 Esophageal dysphagia 08/23/2020 Overview: Added automatically from request for gin snigletary [id number] Bipolar 1 disorder GERD (gastroesophageal reflux disease) documented as of this encounter (statuses as of 10/06/2020) Immunizations Name Administration Dates Next Due Influenza [...] with No / Unsure 10/04/2020 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 documented as of this encounter Last Filed Vital Signs Not on filedocumented in this encounter Plan of Treatment Date Type Specialty Care Team Description 11/14/2020 Office Visit Thoracic Surgery Delvis Garcia MD [address] [place], [place] [phone] Health Maintenance Due Date Last [...] ype Group Dates MEDICAID MEDICAID PENDING 2020-Pre [address] [place] [address] Pending [place] [address] documented as of this encounter
[2020-10-08] MEDS ORDERED: NA CHLORIDE 0.9% 1,000 ML ONE (10:30)
[2020-10-08] MEDS ORDERED: NA CHLORIDE 0.9% 1,000 ML with FOLIC ACID 1 MG, THIAMINE HCL 100 MG, MULTIVITAMINS INJ ... IV SCH ×4 (10:30)
[2020-10-08 10:34] LABS: Absolute Lymphocytes (CBC) 0.9 K/uL (0.7-4.9); Basophils % 0.1 % (0-1.3); MPV 11.1 fL (7.6-11.3); RBC Red Blood Cell Count 3.44 M/uL (4.33-5.43)
[2020-10-08 10:41] LABS: AST/SGOT 164 U/L (15-37); Albumin 2.2 g/dL (3.4-5.0); Alkaline Phosphatase 752 U/L (45-117); BUN Blood Urea Nitrogen 27 mg/dL (7-18); Bicarbonate 29 mmol/L (21-32); Bilirubin Direct 0.2 mg/dL (0-0.2); Bilirubin Total 0.7 mg/dL (0.2-1.0); Glucose Level 81 mg/dL (74-106); Lipase 330 U/L (73-393); Potassium 3.1 mmol/L (3.5-5.1); Protein, Total 5.9 g/dL (6.4-8.2); Sodium Level 151 mmol/L (136-145)
[2020-10-08 10:45] LABS: ALT/SGPT 333 U/L (12-78)
[2020-10-08 10:46] LABS: Blood Morphology Comment NOT SEEN (NOT SEEN); Platelet Estimate DECR; White Blood Cell Scan OK (OK)
[2020-10-08] MEDS ORDERED: ONDANSETRON 4 MG/2 ML VIAL ONE (11:59)
--- NOTE | 2020-10-08 12:06 | RAD REPORT ---
EXAM DESCRIPTION: US - Abdomen Exam Limited - 10/08/2020 11:59 am CLINICAL HISTORY: ABD PAIN COMPARISON: ABDOMINAL EXAM LIMITED dated 11/04/2013; Abdomen Pelvis Wo Contrast dated 10/05/2020 FINDINGS: The gallbladder demonstrates gallbladder sludge without visible gallstones. No pericholecy stic fluid or gallbladder wall thickening. The common bile duct is normal measuring 4 mm. The liver demonstrates no findings of intrahepatic biliary dilatation. IMPRESSION: Moderate gallbladder sludge suspected.
[2020-10-08] MEDS ORDERED: D5W 1,000 ML with POTASSIUM CL 20 MEQ IV SCH ×2 (13:30)
--- NOTE | 2020-10-08 15:17 | ER ---
Nurse's Notes [facility] Name: Tahir Ag Jr Age: 35 yrs Sex: Male : 1985 Arrival Date: 10/08/2020 Time: :16 Bed 12 Private MD: Diagnosis: Nausea and vomiting Presentation: 10/08 09:20 Chief complaint: Patient states: left AMA from [facility] two days ago, has hx of iw GI issues including achalasia, states he left AMA because they weren't allowing him to eat anything, now has nausea and vomiting this morning. Coronavirus screen: At this time, the client does not indicate any symptoms associated with coronavirus-19. Ebola Screen: Patient negative for fever greater than or equal to 101.5 degrees Fahrenheit, and additional compatible Ebola Virus Disease symptoms Patient denies exposure to infectious person. Patient denies travel to an Ebola-affected area in the 21 days before illness onset. No symptoms or risks identified at this time. Initial Sepsis Screen: Does the patient meet any 2 criteria? No. Patient's initial sepsis screen is negative. Does the patient have a suspected source of infection? No. Patient's initial sepsis screen is negative. Risk Assessment: Do you want to hurt yourself or someone else? Patient reports no desire to harm self or others. Onset of symptoms was October 08, 2020. 09:20 Method Of Arrival: EMS: [email or web address] iw 09:20 Acuity: MARTINA 3 iw Historical: - Allergies: 09:25 No Known Allergies; iw - PMHx: 09:24 Bipolar disorder; Diabetes - NIDDM; Hernia; Hypertension; Schizophrenia; iw - PSHx: 09:24 Knee surgery; shoulder surgery; iw Screenin:28 Abuse screen: Denies threats or abuse. Denies injuries from another. Nutritional iw screening: Difficulty chewing/swallowing? Yes. Tuberculosis screening: No symptoms or risk factors identified. Fall Risk None identified. Assessment: 08:30 General: Appears ill, unkempt, cachectic. Pain: Complains of pain in all over. Neuro: iw Level of Consciousness is awake, alert, obeys commands, Oriented to person, place, time, situation, Moves all extremities. Cardiovascular: Patient's skin is warm and dry. Respiratory: Respiratory effort is even, unlabored, Respiratory pattern is regular, symmetrical. GI: Reports nausea, vomiting. GI: Abdomen is flat. Derm: Skin with poor turgor Skin is dry, Skin is dusky. Musculoskeletal: Range of motion: intact in all extremities. 10:50 Reassessment: pt given warm blankets as requested, asking for pain medicine, pt advised iw that his BP is still too low for pain medicine. 11:50 Reassessment: pt vomited what he at for breakfast, Miladis [employer] notified, order for Zofran iw 4 mg IVP, given now. 14:02 Reassessment: Patient appears in no apparent distress at this time. Patient and/or iw family updated on plan of care and expected duration. Pain level reassessed. Patient is alert, oriented x 3, equal unlabored respirations, skin warm/dry/pink. 15:22 Reassessment: Patient appears in no apparent distress at this time. pt requesting to iw sign out AMA. 16:06 Reassessment: Reassessment: pt calling for help, found on ground, states he was trying iw to hold the rail to put his shirt on and he fell, hit his face on ground, laceration to inside of top lip, no LOC, no other injury noted. Notified KASIA [place], will set up for lac repair, pt states he still wants to leave AMA after lac repair. 16:36 Reassessment: pt assisted into taxi, pt states he will be going to apartments behind [facility]. Vital Signs: 09:22 BP 91 / 63; Pulse 80; Resp 18 S; Temp 97.8(O); Pulse Ox 100% on R/A; Weight 38.56 kg jd3 (R); Height 5 ft. 5 in. (165.10 cm) (R); Pain 10/10; 10:21 BP 98 / 63; Pulse 79; Resp 16; Pulse Ox 97% on R/A; iw 11:53 BP 117 / 87; Pulse 89; Resp 16; Pulse Ox 98% on R/A; iw 14:02 BP 102 / 79; Pulse 89; Resp 16; Pulse Ox 98% on R/A; iw 09:22 Body Mass Index 14.14 (38.56 kg, 165.10 cm) jd3 ED Course: 09:16 Patient arrived in ED. iw 09:17 [facility] Mukherjee [facility]-C [facility] snw 09:17 Keshawn Fish MD is Attending Physician. snw 09:20 Xiomara Clarke, RN is Primary Nurse. iw 09:23 Arm band placed on. jd3 09:24 Triage completed. iw 10:16 Accessed peripheral vein via ultrasound, utilizing dynamic ultrasound technique using jd3 20G Nexia IV catheter ,sterile technique, per hospital protocol. Clean \T\ dry. Dressing intact. Good blood return. Flushes easily. 11:23 US Abdomen Limited In Process Unspecified. EDMS Administered Medications: 10:21 Drug: NS 0.9% 1000 ml Route: IV; Rate: 1 bolus; Site: right antecubital; iw 10:58 Drug: Banana Bag - (NS 0.9% 1000 ml, foLIC Acid 1 mg, Thiamine 100 mg, Multivitamin 1 iw amp) Route: IV; Rate: calculated rate; Site: right antecubital; 11:53 Drug: Zofran (Ondansetron) 4 mg Route: IVP; Site: right antecubital; iw 14:12 Drug: D5W with KCL 20 mEq/L 1000 ml Route: IV; Rate: 250 ml/hr; Site: right antecubital;iw 15:40 Drug: Lidocaine (1 %) 5 mg Route: Infiltration; iw Outcome: 15:21 AMA AMA form signed iw 16:35 Patient left the ED. iw Signatures: Dispatcher [employer] EDMS Miladis Mukherjee FNP-C WINDOWS SERVER ENGINEER-Csnw Xiomara Clarke RN RN iw Kilo Reed RN RN jd3 Corrections: (The following items were deleted from the chart) 19:08 19:03 Reassessment: iw iw
--- NOTE | 2020-10-08 15:17 | EDPHYS ---
Physician Documentation [facility] Name: Tahir Ag Jr Age: 35 yrs Sex: Male : 1985 Arrival Date: 10/08/2020 Time: 09:16 Bed 12 Private MD: ED Physician Keshawn Fish HPI: 10/08 09:39 This 35 yrs old Black Male presents to ER via EMS with complaints of Nausea/Vomiting. snw 09:39 The patient presents to the emergency department with nausea, vomiting. Onset: The snw symptoms/episode began/occurred gradually. Possible causes: achalazia. The symptoms are aggravated by food . Associated signs and symptoms: Pertinent positives: nausea, vomiting. Severity of symptoms: At their worst the symptoms were moderate in the emergency department the symptoms are unchanged. The patient has experienced similar episodes in the past, chronically. It is unknown whether or not the patient has recently seen a physician. Historical: - Allergies: 09:25 No Known Allergies; iw - PMHx: 09:24 Bipolar disorder; Diabetes - NIDDM; Hernia; Hypertension; Schizophrenia; iw - PSHx: 09:24 Knee surgery; shoulder surgery; iw ROS: 09:37 Eyes: Negative for injury, pain, redness, and discharge, ENT: Negative for injury, snw pain, and discharge, Neck: Negative for injury, pain, and swelling, Cardiovascular: Negative for chest pain, palpitations, and edema, Respiratory: Negative for shortness of breath, cough, wheezing, and pleuritic chest pain, Back: Negative for injury and pain, : Negative for injury, bleeding, discharge, and swelling, MS/Extremity: Negative for injury and deformity, Skin: Negative for injury, rash, and discoloration, Neuro: Negative for headache, weakness, numbness, tingling, and seizure, Psych: Negative for depression, anxiety, suicide ideation, homicidal ideation, and hallucinations. 09:37 Constitutional: Positive for malaise, poor PO intake. 09:37 Abdomen/GI: Positive for nausea and vomiting, hx of achalazia. Exam: 09:37 Head/Face: Normocephalic, atraumatic. Eyes: Pupils equal round and reactive to light, snw extra-ocular motions intact. Lids and lashes normal. Conjunctiva and sclera are non-icteric and not injected. Cornea within normal limits. Periorbital areas with no swelling, redness, or edema. ENT: Nares patent. No nasal discharge, no septal abnormalities noted. Tympanic membranes are normal and external auditory canals are clear. Oropharynx with no redness, swelling, or masses, exudates, or evidence of obstruction, uvula midline. Mucous membranes moist. Neck: Trachea midline, no thyromegaly or masses palpated, and no cervical lymphadenopathy. Supple, full range of motion without nuchal rigidity, or vertebral point tenderness. No Meningismus. Chest/axilla: Normal chest wall appearance and motion. Nontender with no deformity. No lesions are appreciated. Cardiovascular: Regular rate and rhythm with a normal S1 and S2. No gallops, murmurs, or rubs. Normal PMI, no JVD. No pulse deficits. Respiratory: Lungs have equal breath sounds bilaterally, clear to auscultation and percussion. No rales, rhonchi or wheezes noted. No increased work of breathing, no retractions or nasal flaring. Abdomen/GI: Soft, non-tender, with normal bowel sounds. No distension or tympany. No guarding or rebound. No evidence of tenderness throughout. Back: No spinal tenderness. No costovertebral tenderness. Full range of motion. Skin: Warm, dry with normal turgor. Normal color with no rashes, no lesions, and no evidence of cellulitis. MS/ Extremity: Pulses equal, no cyanosis. Neurovascular intact. Full, normal range of motion. Neuro: Awake and alert, GCS 15, oriented to person, place, time, and situation. Cranial nerves II-XII grossly intact. Motor strength 5/5 in all extremities. Sensory grossly intact. Cerebellar exam normal. Normal gait. Psych: Awake, alert, with orientation to person, place and time. Behavior, mood, and affect are within normal limits. 09:37 Constitutional: The patient appears alert, awake, emaciated, frail. Vital Signs: 09:22 BP 91 / 63; Pulse 80; Resp 18 S; Temp 97.8(O); Pulse Ox 100% on R/A; Weight 38.56 kg jd3 (R); Height 5 ft. 5 in. (165.10 cm) (R); Pain 10/10; 10:21 BP 98 / 63; Pulse 79; Resp 16; Pulse Ox 97% on R/A; iw 11:53 BP 117 / 87; Pulse 89; Resp 16; Pulse Ox 98% on R/A; iw 14:02 BP 102 / 79; Pulse 89; Resp 16; Pulse Ox 98% on R/A; iw 09:22 Body Mass Index 14.14 (38.56 kg, 165.10 cm) jd3 Laceration: 16:08 Wound Repair of 2cm ( 0.8in ) subcutaneous laceration to upper lip. Linear shaped.. snw Distal neuro/vascular/tendon intact. Anesthesia: Wound infiltrated with 2 mls of 1% lidocaine. Wound prep: Simple cleansing with hibiclenz by me. Skin closed with 2 6-0 chromic using simple sutures and sterile technique. Dressed with none. Patient tolerated well. MDM: 09:17 Patient medically screened. snw 14:00 Data reviewed: vital signs, nurses notes. Data interpreted: Pulse oximetry: on room air snw is 98 %. Interpretation: normal. Counseling: I had a detailed discussion with the patient and/or guardian regarding: the historical points, exam findings, and any diagnostic results supporting the discharge/admit diagnosis, lab results, radiology results, the need for further work-up and treatment in the hospital. Awaiting: X-ray results, unable to complete barium swallow today from ED will attempt admission. As no, GI, unsure if pt can be admitted here instead of again attempting transfer. . 15:00 Refusal of service: The patient/guardian displays adequate decision making capability snw and despite a detailed discussion of alternatives, benefits, risks, and consequences refuses: Admission to the hospital for further work-up and treatment, transfer. Pt requests AMA papers at this time.. 16:06 ED course: Pt fell grasping side rail and struck mouth, + upper lip laceration, no LOC. snw 6-0 chromic x 2 buried stitches placed, pt tolerated well. Encouraged pt to stay for admission or transfer for further esophageal studies. Pt refuses. Will go AMA, states he will come back tomorrow.. 10/08 09:29 Order name: Basic Metabolic Panel; Complete Time: 10:55 snw 10/08 09:29 Order name: CBC with Diff; Complete Time: 10:55 snw 10/08 09:29 Order name: Hepatic Function; Complete Time: 10:55 snw 10/08 09:29 Order name: Lipase; Complete Time: 10:55 snw 10/08 10:33 Order name: Glucose, Ancillary Testing; Complete Time: 10:41 EDMS 10/08 10:46 Order name: CBC Smear Scan; Complete Time: 10:55 EDMS 10/08 10:56 Order name: US Abdomen Limited; Complete Time: 12:07 snw 10/08 09:29 Order name: IV Saline Lock; Complete Time: 10:19 snw 10/08 09:29 Order name: Labs collected and sent; Complete Time: 10:19 snw 10/08 16:06 Order name: Suture Tray at Bedside; Complete Time: 16:07 snw Administered Medications: 10:21 Drug: NS 0.9% 1000 ml Route: IV; Rate: 1 bolus; Site: right antecubital; iw 10:58 Drug: Banana Bag - (NS 0.9% 1000 ml, foLIC Acid 1 mg, Thiamine 100 mg, Multivitamin 1 iw amp) Route: IV; Rate: calculated rate; Site: right antecubital; 11:53 Drug: Zofran (Ondansetron) 4 mg Route: IVP; Site: right antecubital; iw 14:12 Drug: D5W with KCL 20 mEq/L 1000 ml Route: IV; Rate: 250 ml/hr; Site: right antecubital;iw 15:40 Drug: Lidocaine (1 %) 5 mg Route: Infiltration; iw Disposition: 10/09 09:37 Co-signature as Attending Physician, Keshawn Fish MD I agree with the assessment and daniel plan of care. Disposition: 10/08/20 15:16 Patient has left against medical advice. Impression: Nausea and vomiting. - Patients states they are going to Home. - Condition is Stable. Follow up: Private Physician; When: Upon discharge from the Emergency Department; Reason: Recheck today's complaints, Re-evaluation by your physician. Follow up: Emergency Department; When: As needed; Reason: Worsening of condition. - Problem is chronic. - Symptoms are unchanged. Signatures: Dispatcher [employer] Keshawn Silva MD MD cha Waters, Shelly, HOME CARE AND HOME HEALTH AIDES TEACHER-C HOME CARE AND HOME HEALTH AIDES TEACHER-Csnw Xiomara Clarke, RN RN iw Corrections: (The following items were deleted from the chart) 12/16 12:33 12:28 Upper GI W/KUB ordered. EDWV EDWV 13:54 12:33 Upper GI Series Wo KUB ordered. [facility] EDWV 16:35 15:16 10/08/2020 15:16 Patients has left against medical advice. Impression: Nausea and iw vomiting. Patient states they are going to Home. Condition is Stable. Follow up: Private Physician; When: Upon discharge from the Emergency Department; Reason: Recheck today's complaints, Re-evaluation by your physician. Follow up: Emergency Department; When: As needed; Reason: Worsening of condition. Problem is chronic. Symptoms are unchanged. snw
[2020-10-08] MEDS ORDERED: LIDOCAINE 1% MPF 5 ML VIAL ONE (15:44)
[2020-10-10 03:28] VITALS: TEMP 97.8
[2020-10-10 03:31] VITALS: O2SAT 98
[2020-10-10 03:32] VITALS: BP 102/79
== END 2020-10-08 16:35 | disposition left against medical advice (07) ==
LOC: ER 09:15
PROC: 0CQ0XZZ Repair Upper Lip, External Approach (ICD-10-PCS; principal; 2020-10-08)
DX: R11.2 Nausea with vomiting, unspecified (principal); S01.511A Laceration without foreign body of lip, initial encounter; W18.30XA Fall on same level, unspecified, initial encounter; Y93.89 Activity, other specified; Y92.538 Other ambulatory health services establishments as the place of occurrence of the external cause; I10 Essential (primary) hypertension; F20.9 Schizophrenia, unspecified
CPT/HCPCS: 36415; 76705; 80048; 80076; 82947; 83690; 85025; 96374; 96375; 99284; J2405; J3411; J3480; J7030

== ENCOUNTER 2020-10-09 19:28 | Emergency (ER) | payer SELFPAY ==
--- OUTSIDE RECORDS SUMMARY | 2020-10-09 19:30 | XMS REPORT | Clinical Summary ---
:1985 Author Organization [facility] Distr ict Address [facility] [place] [address] Care Team Providers Name Role Phone Unavailable [...] 18 yrs) 07/24/2020 Results Not on fileafter 10/09/2019 Insurance Payer Benefit Plan / Subscriber ID Effective Dates Phone Addre ss Type Group [facility] SELF-PAY [id number] 2014-Prese [phone] [id number] SELF-PAY UNSCREENED nt [address] [place] [address] (Work) [id number]
--- OUTSIDE RECORDS SUMMARY | 2020-10-09 19:31 | XMS REPORT | Continuity of Care Document ---
:1985 Author Organization [facility] t Address [address] [place] [address] Care Team Providers Name Role Phone Araujo [...] Allergie 2-14 Clear s 00:00: Aquino 00 [facility] Social History Social Habit Start Date Stop Date Quantity Comments Source Sex Assigned At [facility] Medications This patient has no known medications. Procedures This patient has no known procedures. Plan of Care Planned Activity Planned Date Details Comments Source Future Scheduled Test 2020-07-24 00:00:00 IMM Influenza [facility] Seasonal Jul to December (>/= 19 yrs) [code = IMM Influenza Seasonal Jul to December (>/= 19 yrs)] Encounters Start End Encounter Admission Attending Care Care Encounter Source Date/Time Date/Time Type Type Clinicians Facility Department ID 2020-10-06 2020-10-06 Transition AraujoRachid malloyso 1.2.840.114 [id number] 00:00:00 00:00:00 of Care Henrietta Jo 350.1.13.10 [place] 4.2.7.2.686 [id number] 2020-10-04 2020-10-04 Emergency Konrad, TRAUMA 1.2.138.692 [id number] 14:21:00 16:02:00 [facility] 350.1.13.10 4.2.7.2.686 [id number] 2020-10-03 2020-10-04 [facility] Jamel Mendez 1.2.840. 114 [id number] 21:25:00 11:00:00 Encounter Erwin Pena 350.1.13.10 Ramila Johnson [facility] 4.2.7.2.686 [id number] 2020-10-04 2020-10-04 Case NEGRITO Gardner 1.2.840.114 [id number] 00:00:00 00:00:00 Management Roxann OTT 350.1.13.10 [facility] 4.2.7.2.686 [id number] 2020-10-02 2020-10-03 Hospital Rolan Sawantnie 1.2. 840.114 [id number] 16:21:00 15:55:00 Encounter Erwin Pena Malick 350.1.13.10 [facility] 4.2.7.2.686 [id number] 2020-10-03 2020-10-03 Patient Sharon Bunn 1.2.840.114 [id number] 00:00:00 00:00:00 Outreach Micki Jo 350.1.13.10 [place] 4.2.7.2.686 [id number] 2020-09-26 2020-10-02 [facility] Johana Baltazar Angie 1.2.840.11 [id number] 09:58:00 14:26:00 Encounter Delvis Garcia 350.1.13.1 [facility] 4.2.7.2.686 Erwin Pena [id number] 2020-09-23 2020-09-23 Orders Doctor NEGRITO 1.2.840.114 [id number] 00:00:00 00:00:00 Only Unassigned, MALICK 350.1.13.10 Royal Kunia [facility] 4.2.7.2.686 [id number] 2020-09-20 2020-09-20 Emergency [facility] 1.2.840.114 [id number] 13:37:00 17:50:00 Iram Howe 350.1.13.10 [place] 4.2.7.2.686 [place] [id number] 084 2020-09-01 2020-09-01 Transition Sharon Araujo 1.2.840.114 [id number] 00:00:00 00:00:00 of Care Henrietta Jo 350.1.13.10 [place] 4.2.7.2.686 [id number] 2020-08-23 2020-08-30 [facility] Gauri Lott 1.2.840.1 14 [id number] 18:15:00 16:15:00 Encounter Ramila Johnson 350.1.13.[address]2.686 [id number] 094 2020-08-23 2020-08-23 Orders Doctor NEGRITO 1.2.840.114 [id number] 00:00:00 00:00:00 Only Unassigned, MALICK 350.1.13.10 [place] [address].7.2.686 [id number] 2020-05-02 2020-05-02 Emergency [facility], [facility] 1.2.855.387 [id number] 02:29:01 07:27:00 Brett Howe 350.1.13.[address]7.2.686 [place] [id number] [id number] Results Test Description Test Time Test Comments Results Result Comments Source SURG 2020-10-07 16:06:00 Test Item Value Reference Range Interpretation Comme nts SURG RUN DATE: (test 10/07/20 H [facility] PAGE 1 RUN TIME: 1607 code = Specimen Inquiry RUN USER: INTERFACE SURG) PATIENT: FIONA SANCHES JR LOC: RoseCHUCK U #: [id number] AGE/SX: 35/ M ROOM: WINTER RE10/06/20REG DR: Sreekanth Garcia MD : 84 BED: 3 DIS: STATUS: ADM Arcadio TLOC: SPEC #: [id number] RECD: STATUS: ELZA REQ #: [id number] MIRIAM: 10/06/[address]: Sreekanth Garcia MD ENTERED: 10/06/20 SP TYPE: SURG OTHR DR: DOES_NOT KNOW No Primary or Family Physician Juan Mcbride MD, Jignesh P MDORDERED: SURG PATH LVL 4 COPIES TO: DOES_NOT KNOW No Pr [place]ary [place] [address] [address] [email or web address] [address] [place] [address] Arnulfo Cormier MD [address] [place] [address] [address] HISTOLOGY: TISSUE ID BLK PCS KANWAL LEV PROCEDURE DISPOSIT ION ____ ___ ___ ___ ESOPHAGUS, NOS A 1 2 PROCEDURES: SURG PATH LVL 4 (10/06/20) TISSUES: A. ALANNAHA FRANKIE, NOS - ESOPHAGUS BIOPSY CLINICAL HISTORY ESOPHAGEAL FOOD BOLUS, STRICTURE V DYSMOTILI TY CONTINUED ON NEXT PAGE RUN DATE: 10/07/20 H [facility] - LAB PAGE 2 RUN TIME: 0257 Specimen Inquiry RUN USER: INTERFACE SPEC #: [facility]:[id number] PATIENT: FIONA SANCHES JR #[id number] (Continued) CPT CODES CPT CODE(S): 26222 , , , , , , FINAL DIAGNOS IS Esophagus, biopsy: ACUTE ESOPHAGITIS WITH CANDIDIASIS NEGATIVE FOR INTESTINAL METAPLASIA, D YSPLASIA, OR MALIGNANCY GROSS DESCRIPTION Esophagus biopsy. Received in formalin are mul tiple minute fragments of suarez soft tissue, 0.1 - 0.3 cm. The specimen is filtered in a teabag and ent irely submitted as A. ba/nr Grossing performed at [facility] Pathology, [address] [place] [address], [address], [place] [address]. [address] Commissioner: Abner Steward M.D. MICROSCOPIC DESCRIPTION Esophagus biopsy. [...] indicativ e of the presence code = JNYFY10GC) ofSARS-CoV -2 RNA, clinical correlation wit h [...] indicativ e of the presence code = RTALC29ZM) ofSARS-CoV -2 RNA, clinical correlation wit h [...] for the identification of SARS-CoV-2 RNA usingthe Boond M2000 Sy stem under the FDA Emergen cy UseAuthorizatio n. The testing is perf ormed by personneltraine d in the procedures for the Boond M2000 molecular diagnostic SARS-CoV-2 assa y in vitro. CBC W/AUTO [id number] 13:10:00 Test Item Value Reference Range Interpretation [...] NT WITH AUTO DIFFERENTI AL. CBC W/AUTO [id number] 13:10:00 Test Item Value Reference Range Interpretation [...] CONSISTA NT WITH AUTO DIFFERENTI AL. RBC [id number] 13:10:00 Test Item Value Reference Range Interpretation Comments PLATELET ESTIMATE DECREASED THOUSAND ADEQUATE PLAT ELET COUNT (test code = REVIEWED AND PLTEST) VERIFIED. PLATELET MORPHOLOGY NORMAL (test code = PLTMORPH) CBC W/AUTO [id number] 13:10:00 Test Item Value Reference Range Interpretation [...] NT WITH AUTO DIFFERENTI AL. COMPREHENSIVE METABOLIC [id number] 11:48:00 Test Item Value Reference Range Interpretation [...] TOTAL (test code = ALKP) CBC W/AUTO [id number] 11:33:00 Test Item Value Reference Range Interpretation [...] REQUIRED (test code = DIFF/SCN CRITERIA MDIFF) [id number] 04:59:00 Test Item Value Reference Range Interpretation Comments AMMONIA (test code = AMM) 56 mcMOL/L 11-32 H LACTIC [id number] 04:59:00 Test Item Value Reference Range Interpretation Comments LACTIC ACID (test code = LACT) 0.7 mmol/L 0.4-2.0 N GLUCOSE BEDSIDE [id number] 20:35:00 Test Item Value Reference Range Interpretation Comments GLUCOSE BEDSIDE TESTING (test code 109 mg/dL 70-110 N = GLUBED) GLUCOSE BEDSIDE [id number] 17:10:00 Test Item Value Reference Range Interpretation Comments GLUCOSE BEDSIDE TESTING (test code 105 mg/dL 70-110 N = GLUBED) - US ABDOMEN [id number] 16:39:00 [facility] : 1985 Sex: M Name: FIONA SANCHES JR [facility] : 1985 Age/S: 35 / M [address] [place] Unit #: [id number] Loc: [place] [address] Phys: Matilda Kirk PA-C Acct: [id number] Dis Date: Status: ADM IN PHONE#: [phone] Exam Date: 10/06/2020 8044 FAX #: Reason:elevated lfts, evaluate for cirrhosis EXAMS: CPT: [id number] US ABDOMEN LTD 27[address] RIGHT UPPER QUADRANT ULTRASOUND. CLINICAL HISTORY: Elevated [...] Signed Report (CONTINUED) Name: FIONA SANCHES JR [place] : 1985 Age/S: 35 / M [address] [place] Unit #: [id number] Loc: [place] [address] Phys: Matilda Kirk PA-C Acct: [id number] Dis Date: Status: ADM IN PHONE #: [phone] Exam Date: 10/06/2020 1515FAX #: Reason: elevated lfts, evaluate for cirrhosis EXAMS: CPT: [id number] ABDOMEN LTD 75623 <Continued> CC: Sreekanth Garcia MD; Matilda Kirk Technologist: [facility] Date/Time: 10/06/2020 (3209) t.SDR.AM18 PAGE 2 Signed Report Name: FIONA SANCHES JR [place] : 1985 Age/S: 35 / M [address] [place] Unit #: [id number] Loc: [place] [address] Phys: Matilda Kirk PA-C Acct: [id number] Dis Date: Status: ADM IN PHONE #: [phone] Exam Date: 10/06/2020 1515 FAX #: Reason: elevated lfts, evaluate for cirrhosis EXAMS: CPT: [id number] US ABDOMEN LTD [address]137 <Continued> Orig Print D/T: S: 10/06/2020 (0286) Probe: PAGE 3 Signed ReportUA RFLX MICR CULT IF [id number] 15:23:00 Test Item Value Reference Range Interpretation [...] RiskForSepsis-no oth srcUA RFLX MICR CULT IF [id number] 15:09:00 Test Item Value Reference Range Interpretation [...] 92 mg/dL 70-110 N GLUBED) GLUCOSE BEDSIDE [id number] 13:37:00 Test Item Value Reference Range Interpretation Comments GLUCOSE BEDSIDE TESTING (test code = 58 mg/dL 70-110 L GLUBED) CREATINE KINASE (CK)2020-10-06 11:26:00 Test Item Value Reference Range Interpretation Comments CREATINE KINASE (CK) (test code = 287 Unit/L 26-192 H CK) [id number] 11:26:00 Test Item Value Reference Range Interpretation Comments AMYLASE (test code = JOSE CARLOS) 120 Unit/L 25-115 H [id number] 11:26:00 Test Item Value Reference Range Interpretation Comments LIPASE (test code = LIP) 112 Unit/L 114-286 L CBC W/AUTO [id number] 09:58:00 Test Item Value Reference Range Interpretation [...] DIFF/SCN CRITERIA (test code = MDIFF) WBC [id number] 09:58:00 Test Item Value Reference Range Interpretation [...] NORMAL (test code = PLTMORPH) CBC W/AUTO [id number] 09:55:00 Test Item Value Reference Range Interpretation [...] DIFF/SCN CRITERIA (test code = MDIFF) WBC [id number] 09:55:00 Test Item Value Reference Range Interpretation Comments SEGMENTED NEUTROPHILS (test code = SEG) % 40-75 LYMPHOCYTE (test code = LYMPH) % 12.6-43.5 CBC W/AUTO [id number] 09:55:00 Test Item Value Reference Range Interpretation [...] DIFF/SCN CRITERIA (test code = MDIFF) WBC [id number] 09:55:00 Test Item Value Reference Range Interpretation Comments SEGMENTED NEUTROPHILS (test code = SEG) % 40-75 LYMPHOCYTE (test code = LYMPH) % 12.6-43.5 COMPREHENSIVE METABOLIC [id number] 09:14:00 Test Item Value Reference Range Interpretation [...] TOTAL (test code = ALKP) CBC W/AUTO [id number] 09:02:00 Test Item Value Reference Range Interpretation [...] CRITERIA (test code = MDIFF) GLUCOSE BEDSIDE [id number] 06:41:00 Test Item Value Reference Range Interpretation Comments GLUCOSE BEDSIDE TESTING (test code = 65 mg/dL 70-110 L GLUBED) COVID 19 INHOUSE [id number] 05:40:00 Test Item Value Reference Range Interpretation Comments COVID 19 INHOUSE AG NEGATIVE Negative Per [facility] facturer, (test code = negative result s should [id number]) be treated aspr esumptive and, if inconsi [...] co nsistent with COVID-19. - CT CHEST [id number] 03:30:00 [facility] : 1985 Sex: M Name: FIONA SANCHES JR [facility] : 1985 Age/S: 35 / M [address] [place] Unit #: [id number] Loc: [place] [address] Phys: Scott Person MD Acct: [id number] Dis Date: Status: REG ER PHONE#: [phone] Exam Date: 10/06/2020 0245 FAX #: Reason:possible esophageal pneumatosis EXAMS: CPT: [id number] CT CHEST W/CONTRAST 81480 DICTATION LOCATION: H48 HISTORY: Male, 35 years [...] JR : 1985 Age/S: 35 / M [address] [place] Unit #: [id number] Loc: [place] [address] Phys: Phil Person Acct: [id number] Dis Date: Status: REG ER PHONE #: [phone] Exam Date: 10/06/2020 0245 FAX #: Reason: possible esophageal pneumatosisEXAMS: CPT: [id number] CT CHEST W/CONTRAST 03294 <Continued> (i.e. scleroderma or dermatomyositis). Infiltrative neoplasm [...] (332) PAGE 2 Signed Report- CT NECK [id number] 03:11:00 [facility] : 1985 Sex: M Name: [facility]ES [facility] [place] [facility] 1985 Age/S: 35 / M [address] [place] Unit #: [id number] Loc: [place] [address] Phys: Scott Person MD Acct: [id number] Dis Date: Status: REG ER PHONE#: [phone] Exam Date: 10/06/2020 0250 FAX #: Reason:possible esophageal pneumatosis EXAMS: CPT: [id number] CT NECK W/CONTRAST [address]44 EXAM: - CT NECK W/CONTRAST LOCATION: H57 [...] Signed Report (CONTINUED) Name: FIONA SANCHES JR [place] : 1985 Age/S: 35 / M [address] [place] Unit #: [id number] Loc: [place] [address] Phys: Scott Person MD Acct: [id number] Dis Date: Status: REG ER PHONE #: [phone] Exam Date: 10/06/2020 0250 FAX #: Reason: possible esophageal pneumatosis EXAMS: CPT: [id number] CT NECK W/CONTRAST [address] <Continued> CC: Technologist:Valentine Momin, RT(R)(CT); CTDI: DLP: Trnscb Date/Time: 10/06/2020 (310) [id number] Orig Print D/T: S: 10/06/2020 (313) PAGE 2 Signed Report BASIC METABOLIC [id number] 02:14:00 Test Item Value Reference Range Interpretation [...]
[2020-10-09] MEDS ORDERED: MORPHINE 2 MG/ML SYR ONE (23:49)
[2020-10-09] MEDS ORDERED: FAMOTIDINE 20 MG/2 ML VIAL IV ONE (23:49)
[2020-10-09] MEDS ORDERED: ONDANSETRON 4 MG/2 ML VIAL ONE (23:49)
[2020-10-09] MEDS ORDERED: NA CHLORIDE 0.9% 2,000 ML ONE (23:49)
[2020-10-10] MEDS ORDERED: NA CHLORIDE 0.9% 1,000 ML ONE (00:50)
[2020-10-10] MEDS ORDERED: NA CHLORIDE 0.9% 500 ML ONE (00:50)
[2020-10-10] MEDS ORDERED: PIPER/TAZO/NS 3.375gm 3.375 GM/100 ML BAG ONE (00:50)
[2020-10-10 02:20] LABS: Absolute Lymphocytes (CBC) 1.6 K/uL (0.7-4.9); Basophils % 0.1 % (0-1.3); Hematocrit 22.9 % (39.6-49.0); MPV 10.6 fL (7.6-11.3); RBC Red Blood Cell Count 2.71 M/uL (4.33-5.43)
[2020-10-10] MEDS ORDERED: FAMOTIDINE 20 MG/2 ML VIAL IV ONE (02:23)
[2020-10-10 02:40] LABS: Albumin 2.1 g/dL (3.4-5.0); Alkaline Phosphatase 990 U/L (45-117); BUN Blood Urea Nitrogen 29 mg/dL (7-18); Bicarbonate 30 mmol/L (21-32); Bilirubin Total 1.7 mg/dL (0.2-1.0); Lipase 240 U/L (73-393); Magnesium 1.8 mg/dL (1.8-2.4); NT PRO-BNP 791 pg/mL (<125); Potassium 3.8 mmol/L (3.5-5.1); Protein, Total 5.1 g/dL (6.4-8.2); Sodium Level 148 mmol/L (136-145); Troponin (Emerg Dept Use Only) < 0.02 ng/mL (0.0-0.045)
[2020-10-10 03:25] LABS: AST/SGOT 1058 U/L (15-37); Glucose Level 33 mg/dL (74-106)
[2020-10-10 03:26] LABS: ALT/SGPT 539 U/L (12-78)
[2020-10-10] MEDS ORDERED: D50W 50 ML IV ONE ×2 (03:27→06:41)
[2020-10-10] MEDS ORDERED: D5 0.9 NS 1,000 ML IV ONE (04:01)
[2020-10-10 04:48] LABS: Barbiturates NEGATIVE (NEGATIVE); Benzodiazepines NEGATIVE (NEGATIVE); Cocaine NEGATIVE (NEGATIVE); METHAMPHETAM NEGATIVE (NEGATIVE); Methadone NEGATIVE (NEGATIVE); Opiates NEGATIVE (NEGATIVE); Phencyclidine NEGATIVE (NEGATIVE); THC Cannibis NEGATIVE (NEGATIVE)
[2020-10-10 05:01] LABS: Protime INR 1.34
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
[2020-10-10] MEDS ORDERED: ACETAMINOPHEN 650MG/RECT SUPP PR ONE (05:36)
[2020-10-10] MEDS ORDERED: DIPHENHYDRAMINE 50 MG/ML VIAL ONE (05:36)
[2020-10-10] MEDS ORDERED: PANTOPRAZOLE 40 MG INJ ONE (05:36)
[2020-10-10] MEDS ORDERED: HYDROCORTISONE SUC 100 MG INJ ONE (07:41)
[2020-10-10] MEDS ORDERED: FENTANYL CITR 100 MCG/2 ML ONE (07:57)
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
[2020-10-10 12:21] LABS: Urine Blood TRACE (NEG); Urine Glucose NEGATIVE (NEG); Urine Protein NEGATIVE (NEG)
--- NOTE | 2020-10-11 14:01 | EKG ---
Test Date: 2020-10-10 Test Time: 01:15:44 Cnc Field Service Engineer: [place] MEASUREMENT RESULTS: Intervals: Rate: 52 IN: 160 QRSD: 88 QT: 504 QTc: 468 [place]: P: 84 IN: 160 QRS: 85 T: 100 INTERPRETIVE STATEMENTS: Sinus bradycardia with sinus arrhythmia T wave abnormality, consider anterior ischemia Prolonged QT Abnormal ECG Compared to ECG 10/05/2020 14:10:15 Short IN interval no longer present T-wave abnormality still present Possible ischemia still present Electronically Signed On 10-11-20 13:58:41 MILLING MACHINE OPERATOR GEAR by Grant Bill
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
[2020-10-13 11:44] VITALS: O2SAT 100
[2020-10-13 11:50] VITALS: BP 100/78; TEMP 96.8
== END 2020-10-10 09:09 | disposition short-term general hospital (02) ==
LOC: ER 19:28
PROC: 30233N1 Transfusion of Nonautologous Red Blood Cells into Peripheral Vein, Percutaneous Approach (ICD-10-PCS; principal; 2020-10-10)
PROC: 05HP33Z Insertion of Infusion Device into Right External Jugular Vein, Percutaneous Approach (ICD-10-PCS; 2020-10-10)
DX: D64.9 Anemia, unspecified (principal); K22.0 Achalasia of cardia; E11.649 Type 2 diabetes mellitus with hypoglycemia without coma; E86.0 Dehydration; K82.8 Other specified diseases of gallbladder; R94.5 Abnormal results of liver function studies; R63.0 Anorexia; R11.10 Vomiting, unspecified; K20.90 Esophagitis, unspecified without bleeding; Y04.2XXA Assault by strike against or bumped into by another person, initial encounter; Y93.9 Activity, unspecified; Y92.89 Other specified places as the place of occurrence of the external cause; F17.210 Nicotine dependence, cigarettes, uncomplicated; F20.9 Schizophrenia, unspecified
CPT/HCPCS: 36415; 51702; 70450; 71045; 71260; 72125; 74177; 80048; 80076; 80307; 81003; 82947; 83605; 83690; 83735; 83880; 84484; 85025; 85610; 86850; 86900; 86901; 87040; 93005; 99285; C9113; J1200; J1720; J2270; J2405; J2543; J3010; J7030; J7040; J7042; P9016; Q9967

== ENCOUNTER 2020-11-27 19:35 | Inpatient (IN) | payer OTHER, SELFPAY ==
--- OUTSIDE RECORDS SUMMARY | 2020-11-27 19:38 | XMS REPORT | Clinical Summary ---
:1985 Author Organization [facility] Address [address] [place] [address] Care Team Providers Name Role Phone Unavailable [...] 18 yrs) 07/24/2020 Results Not on fileafter 11/27/2019 Insurance Payer Benefit Plan / Subscriber ID Effective Dates Phone Addre ss Type Group [facility] SELF-PAY [id number] 2014-Prese [phone] [id number] SELF-PAY [address] [place] [address] (Work) [phone]
--- OUTSIDE RECORDS SUMMARY | 2020-11-27 19:38 | XMS REPORT | Continuity of Care Document ---
:[address] [facility] t Address [address] [place] [address] Care Team Providers Name Role Phone Jeff ARENAS Attending Clinician Payers Payer Name Policy Type Policy Number Effective Date Expiration Date S ource Problems This patient has no known problems. Allergies, Adverse Reactions, Alerts Allergy Allergy Status Severity Reaction(s) Onset Inactive Treating Comm ents Source Name Type Date Date Clinician No Known DA Active U 2019-10 [facility] Allergie 2-14 Clear s 00:00: Aquino 00 [facility] Social History Social Habit Start Date Stop Date Quantity Comments Source Sex Assigned At [facility] Medications This patient has no known medications. Procedures This patient has no known procedures. Plan of Care Planned Activity Planned Date Details Comments Source Future Scheduled Test 2020-07-24 00:00:00 IMM Influenza [facility] Seasonal Jul to December (>/= 19 yrs) [code = IMM Influenza Seasonal Jul to December (>/= 19 yrs)] Encounters Start End Encounter Admission Attending Care Care Encounter Source Date/Time Date/Time Type Type Clinicians Facility Department ID 2020-11-27 2020-11-27 Telephone Angie Aguilar [phone] [id number] 00:00:00 00:00:00 Ginani Teresa [id number] [facility] [phone] [id number] Results Test Description Test Time Test Comments Results Result Comments Source ACUTE HEPATITIS PANEL 2020-10-19 03:38:00 Test Item Value Reference Range Interpretation Comme nts AB HEPATITIS A IGM (test code NEGATIVE = HAVMAB) AG HEPATITIS B SURFACE (test NEGATIVE SCREEN NEGATIVE code = HBSAG) AB HEPATITIS B CORE IGM (test NEGATIVE code = HBCMAB) AB HEPATITIS C (test code = <0.1 RATIO <0.8 S/C RATION 0.0 - 0.9 HCVAB) NEGATIVE <0.8INDETERMINA TE 0.8 - 0.9POSITIVE >0.9 [id number] 16:06:00 Test Item Value Reference Range Interpretation Comments SURG (test code = SURG) RUN DATE: 10/07/20 [facility] PAGE 1 RUN TIME: 1607 Specimen Inquiry RUN USER: INTERFACE PATIENT: FIONA SANCHES JR LOC: WINTER U #: [id number] AGE/SX: 35/M ROOM: WINTER RE10/06/20REG DR: Sreekanth Garcia MD : 84 BED: 3 DIS: STATUS: ADM Arcadio TLOC: SPEC #: [id number] RECD: 10/06/20 STATUS: ELZA REQ #: [id number] MIRIAM: 10/06/[address]: Sreekanth Garcia MD ENTERED: 10/06/20 SP TYPE: SURG OTHR DR: DOES_NOT KNOW No Primary or Family Physician Juan Mcbride MD, Jignesh P MDORDERED: SURG PATH LVL 4 COPIES TO: DOES_NOT KNOW No Primary [place] [address] [address] [email or web address] [address] [place] [address] Arnulfo Cormier MD [address] [place] [address] HISTOLOGY: TISSUE ID BLK PCS KANWAL LEV PROCEDURE DISPOSITION ____ ___ ___ ___ ESOPHAGUS, NOS A 1 2 PROCEDURES: SURG PATH LVL 4 (10/06/20) TISSUES: A. ESOPHAGUS, NOS - ESOPHAGUS BIOPSY CLINICAL HISTORY ESOPHAGEAL FOOD BOLUS, STRICTURE V DYSMOTILITY CONTINUED ON NEXT PAGE RUN DATE: 10/07/20 [facility] PAGE 2 RUN TIME: 1607 Specimen Inquiry RUN USER: INTERFACE SPEC #: [id number]:[id number] PATIENT: FIONA SANCHES JR #[id number] (Continued) CPT CODES CPT CODE(S): 44021 , , , , , , FINAL DIAGNOSIS Esophagus, biopsy: ACUTE ESOPHAGITIS WITH CANDIDIASIS NEGATIVE FOR INTESTINAL METAPLASIA, DYSPLASIA, OR MALIGNANCY GROSS DESCRIPTION Esophagus biopsy. Received in formalin are multiple minute fragments of suarez soft tissue, 0.1 - 0.3 cm. The specimen is filtered in a teabag and entirely submitted as A. ba/nr Grossing performed at [facility], [address] [place] [address], [address], [place] [address]. Improvement Specialist: Abner Steward M.D. MICROSCOPIC DESCRIPTION Esophagus biopsy. Sections demonstrate squamous mucosa with a reactive appearance and increased acute inflammation. Detached fragments of squamous mucosa are identified with associated fungal organisms. No dysplasia or malignancy is seen. Alcian blue-PAS confirm the absence of intestinal metaplasia. Signed SIGNATURE ON FILE Deric Fink 10/07/20 1606 END OF REPORT Novel Coronavirus 15:50:00 Test Item Value Reference Range Interpretation Comments Novel Coronavirus Negative Negative Positive r esults are 2018 Inhouse (test indicativ e of the presence code = [id number]) ofSARS-CoV -2 RNA, clinical correlation wit h [...] indicativ e of the presence code = ZNDSX14HE) ofSARS-CoV -2 RNA, clinical correlation wit h [...] for the identification of SARS-CoV-2 RNA usingthe KienVe M2000 Sy stem under the FDA Emergen cy UseAuthorizatio n. The testing is perf ormed by personneltraine d in the procedures for the KienVe M2000 molecular diagnostic SARS-CoV-2 assa y in vitro. CBC W/AUTO [id number] 13:10:00 Test Item Value Reference Range Interpretation [...] NT WITH AUTO DIFFERENTI AL. CBC W/AUTO [id number] 13:10:00 Test Item Value Reference Range Interpretation [...] DIFF REQUIRED NO DIFF/SCN CRITERIA SLIDE R EVIEW (test code = MDIFF) CONSISTA NT WITH AUTO DIFFERENTI AL. RBC [id number] 13:10:00 Test Item Value Reference Range Interpretation Comments PLATELET ESTIMATE DECREASED THOUSAND ADEQUATE PLAT ELET COUNT (test code = REVIEWED AND PLTEST) VERIFIED. PLATELET MORPHOLOGY NORMAL (test code = PLTMORPH) CBC W/AUTO [id number] 13:10:00 Test Item Value Reference Range Interpretation [...] NT WITH AUTO DIFFERENTI AL. COMPREHENSIVE METABOLIC [id number] 11:48:00 Test Item Value Reference Range Interpretation [...] TOTAL (test code = ALKP) CBC W/AUTO [id number] 11:33:00 Test Item Value Reference Range Interpretation [...] REQUIRED (test code = DIFF/SCN CRITERIA MDIFF) [id number] 04:59:00 Test Item Value Reference Range Interpretation Comments AMMONIA (test code = AMM) 56 mcMOL/L 11-32 H LACTIC [id number] 04:59:00 Test Item Value Reference Range Interpretation Comments LACTIC ACID (test code = LACT) 0.7 mmol/L 0.4-2.0 N GLUCOSE BEDSIDE [id number] 20:35:00 Test Item Value Reference Range Interpretation Comments GLUCOSE BEDSIDE TESTING (test code 109 mg/dL 70-110 N = GLUBED) GLUCOSE BEDSIDE [id number] 17:10:00 Test Item Value Reference Range Interpretation Comments GLUCOSE BEDSIDE TESTING (test code 105 mg/dL 70-110 N = GLUBED) - US ABDOMEN [id number] 16:39:00 [facility] 1985 Sex: M Name: FIONA SANCEHS JR [facility] : 1985 Age/S: 35 / M [address] Unit #: [id number] Loc: [place] [address] Phys: Matilda Kirk PA-C Acct: [id number] Dis Date: Status: ADM IN PHONE#: [phone] Exam Date: 10/06/2020 1254 FAX #: Reason:elevated lfts, evaluate for cirrhosis EXAMS: CPT: [id number] US ABDOMEN LTD 92080 RIGHT UPPER QUADRANT ULTRASOUND. CLINICAL HISTORY: Elevated [...] Signed Report (CONTINUED) Name: FIONA SANCHES JR [place] : 1985 Age/S: 35 / M [address] Unit #: [id number] Loc: [place] [address] Phys: Matilda Kirk PA-C Acct: [id number] Dis Date: Status: ADM IN PHONE #: [phone] Exam Date: 10/06/2020 1515FAX #: Reason: elevated lfts, evaluate for cirrhosis EXAMS: CPT: [id number] US ABDOMEN LTD 80837 <Continued> CC: Sreekanth Garcia MD; Matilda Kirk Technologist: Rae Eaton [facility] Date/Time: 10/06/2020 (1639) t.[email or web address].[email or web address] PAGE 2 Signed Report Name: FIONA SANCHES JR [place] : 1985 Age/S: 35 / M [address] Unit #: [id number] Loc: [place] [address] Phys: Matilda Kirk PA-C Acct: [id number] Dis Date: Status: ADM IN PHONE #: [phone] Exam Date: 10/06/2020 1515 FAX #: Reason: elevated lfts, evaluate for cirrhosis EXAMS: CPT: [id number] US ABDOMEN LTD [address]017 <Continued> Orig Print D/T: S: 10/06/2020 (9143) Probe: PAGE 3 Signed ReportUA RFLX MICR CULT IF [id number] 15:23:00 Test Item Value Reference Range Interpretation [...] RiskForSepsis-no oth srcUA RFLX MICR CULT IF [id number] 15:09:00 Test Item Value Reference Range Interpretation [...] 92 mg/dL 70-110 N GLUBED) GLUCOSE BEDSIDE [id number] 13:37:00 Test Item Value Reference Range Interpretation Comments GLUCOSE BEDSIDE TESTING (test code = 58 mg/dL 70-110 L GLUBED) CREATINE KINASE (CK)2020-10-06 11:26:00 Test Item Value Reference Range Interpretation Comments CREATINE KINASE (CK) (test code = 287 Unit/L 26-192 H CK) [id number] 11:26:00 Test Item Value Reference Range Interpretation Comments AMYLASE (test code = JOSE CARLOS) 120 Unit/L 25-115 H [id number] 11:26:00 Test Item Value Reference Range Interpretation Comments LIPASE (test code = LIP) 112 Unit/L 114-286 L CBC W/AUTO [id number] 09:58:00 Test Item Value Reference Range Interpretation [...] DIFF/SCN CRITERIA (test code = MDIFF) WBC [id number] 09:58:00 Test Item Value Reference Range Interpretation [...] NORMAL (test code = PLTMORPH) CBC W/AUTO [id number] 09:55:00 Test Item Value Reference Range Interpretation [...] DIFF/SCN CRITERIA (test code = MDIFF) WBC [id number] 09:55:00 Test Item Value Reference Range Interpretation Comments SEGMENTED NEUTROPHILS (test code = SEG) % 40-75 LYMPHOCYTE (test code = LYMPH) % 12.6-43.5 CBC W/AUTO [id number] 09:55:00 Test Item Value Reference Range Interpretation [...] DIFF/SCN CRITERIA (test code = MDIFF) WBC [id number] 09:55:00 Test Item Value Reference Range Interpretation Comments SEGMENTED NEUTROPHILS (test code = SEG) % 40-75 LYMPHOCYTE (test code = LYMPH) % 12.6-43.5 COMPREHENSIVE METABOLIC [id number] 09:14:00 Test Item Value Reference Range Interpretation [...] TOTAL (test code = ALKP) CBC W/AUTO [id number] 09:02:00 Test Item Value Reference Range Interpretation [...] CRITERIA (test code = MDIFF) GLUCOSE BEDSIDE [id number] 06:41:00 Test Item Value Reference Range Interpretation Comments GLUCOSE BEDSIDE TESTING (test code = 65 mg/dL 70-110 L GLUBED) COVID 19 INHOUSE [id number] 05:40:00 Test Item Value Reference Range Interpretation Comments COVID 19 INHOUSE AG NEGATIVE Negative Per [facility] facturer, (test code = negative result s should [id number]) be treated aspr esumptive and, if inconsi [...] co nsistent with COVID-19. - CT CHEST [id number] 03:30:00 [facility] : 1985 Sex: M Name: FIONA SANCHES JR [facility] : 1985 Age/S: 35 / M [address] Unit #: [id number] Loc: [place] [address] Phys: Scott Person MD Acct: [id number] Dis Date: Status: REG ER PHONE#: [phone] Exam Date: 10/06/2020 0249 FAX #: Reason:possible esophageal pneumatosis EXAMS: CPT: [id number] CT CHEST W/CONTRAST 77785 DICTATION LOCATION: 8 HISTORY: Male, 35 years of age with [...] JR : 1985 Age/S: 35 / M [address] Unit #: [id number] Loc: [place] [address] Phys: Phil Person Acct: [id number] Dis Date: Status: REG ER PHONE #: [phone] Exam Date: 10/06/2020 0245 FAX #: Reason: possible esophageal pneumatosisEXAMS: CPT: [id number] CT CHEST W/CONTRAST 34483 <Continued> (i.e. scleroderma or dermatomyositis). Infiltrative neoplasm [...] RT(R)(CT); CTDI: DLP: Trnscb Date/Time: 10/06/2020 (329) t.[email or web address] Orig Print D/T: S: 10/06/2020 (332) PAGE 2 Signed Report- CT NECK [id number] 03:11:00 [facility] : 1985 Sex: M Name: FIONA SANCHES JR [place] : 1985 Age/S: 35 / M [address] Unit #: [id number] Loc: [place] [address] Phys: Scott Person MD Acct: [id number] Dis Date: Status: REG ER PHONE#: [phone] Exam Date: 10/06/2020 0250 FAX #: Reason:possible esophageal pneumatosis EXAMS: CPT: [id number] CT NECK W/CONTRAST 32380 EXAM: - CT NECK W/CONTRAST LOCATION: H57 [...] Signed Report (CONTINUED) Name: FIONA SANCHES JR [place] : 1985 Age/S: 35 / M [address] Unit #: [id number] Loc: [place] [address] Phys: Scott Person MD Acct: [id number] Dis Date: Status: REG ER PHONE #: [phone] Exam Date: 10/06/2020 0250 FAX #: Reason: possible esophageal pneumatosis EXAMS: CPT: [id number] CT NECK W/CONTRAST [address] <Continued> CC: Technologist:Valentine Momin, RT(R)(CT); CTDI: DLP: Trnscb Date/Time: 10/06/2020 (310) [email or web address] Orig Print D/T: S: 10/06/2020 (313) PAGE 2 Signed Report BASIC METABOLIC [id number] 02:14:00 Test Item Value Reference Range Interpretation [...]
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
--- OUTSIDE RECORDS SUMMARY | 2020-11-27 19:49 | XMS REPORT | Summary of Care ---
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 past (last use one year ago). Drinks 1-2 beers every three months. Family history: No significant family history Allergies: No Known Allergies MEDICATIONS Denies any current medication use REVIEW OF SYSTEMS (-)=Negative,(+)=Positive General: (+) weight loss, (+) fatigue, (+) malaise, (-) fever, (-) chills, (-) weight gain Skin: (+) lesion, (-) rash HEENT: (+) headache, (-) change in hearing, (-) change in vision Neck: (+) pain, (+) difficulty swallowing Heme: (-) bleeding disorder Resp: (-) cough, (-) shortness of breath, (-) dyspnea on exertion Cardio: (+) chest pain, (-) palpitations GI: (+) nausea, (+) vomiting, (-) diarrhea, (-) constipation, (-) melena, (-) hematochezia, (-) hematemesis GI: (+) nausea, (+) vomiting, (+) abdominal pain, (-) diarrhea, (-) constipation, (-) melena : (-) dysuria, (-) hematuria Endo: (-) heat intolerance, (-) diabetes Neuro: (+) weakness (-) numbness, (-) tingling Back: (-) pain, (-)spasms CAT: (+) muscle pain, (-) joint pain Psych: (+) depression, (+) psychiatric disorder PHYSICAL EXAMINATION Vitals: 10/10/20 1300 10/10/20 1315 10/10/20 1330 10/10/20 1345 BP: 99/80 91/71 103/80 (!) 107/93 Pulse: 60 91 57 56 Resp: Temp: TempSrc: SpO2: Height: General: ill-appearing, cachectic HEENT: pupils equal, round, reactive to light Neck: supple, no lymphadenopathy, no bruits, no JVD, full range of motion Lungs: clear to auscultation bilaterally, no wheezing, or ronchi Cardio: S1, S2 normal; no murmurs, rubs or gallops Abdomen: tender, bowel sounds, guarding, negative for rebound Extremities: no clubbing, cyanosis, or edema Skin: multiple areas of ecchymosis and scabbing Neuro: alert and oriented x 3 LABS - reviewed pertinent labs as below: Recent Results (from the past 24 hour(s)) CBC WITH DIFF Collection Time: 10/10/20 12:07 PM Result Value Ref Range WBC 5.62 4.20 - 10.70 10*3/L RBC 3.66 (L) 4.26 - 5.52 10*6/L HGB 10.2 (L) 12.2 - 16.4 g/dL HCT 30.6 (L) 38.4 - 49.3 % MCV 83.6 81.7 - 95.6 fL MCH 27.9 26.1 - 32.7 pg MCHC 33.3 31.2 - 35.0 g/dL RDW-SD 45.4 38.5 - 51.6 fL RDW-CV 14.8 12.1 - 15.4 % PLT 55 (L) 150 - 328 10*3/L MPV 13.6 (H) 9.8 - 13.0 fL IPF % 7.0 1.2 - 10.7 % NRBC/100 WBC 0.0 0.0 - 10.0 /100 WBCs NRBC x10^3 <0.01 10*3/L GRAN MAT (NEUT) % 72.4 % IMM GRAN % 0.50 % LYMPH % 20.5 % MONO % 6.6 % EOS % 0.0 % BASO % 0.0 % GRAN MAT x10^3(ANC) 4.07 1.99 - 6.95 10*3/uL IMM GRAN x10^3 0.03 0.00 - 0.06 10*3/uL LYMPH x10^3 1.15 1.09 - 3.23 10*3/uL MONO x10^3 0.37 0.36 - 1.02 10*3/uL EOS x10^3 <0.03 (L) 0.06 - 0.53 10*3/uL BASO x10^3 <0.03 0.01 - 0.09 10*3/uL IVAN CELLS 2+ (A) (none) BASIC METABOLIC PANEL (NA, K, CL, CO2, GLUCOSE, BUN, CREATININE, CA) Collection Time: 10/10/20 12:07 PM Result Value Ref Range NA 141 135 - 145 mmol/L K 3.7 3.5 - 5.0 mmol/L CL 113 (H) 98 - 108 mmol/L CO2 TOTAL 25 23 - 31 mmol/L AGAP 3 2 - 16 BUN 23 7 - 23 mg/dL GLUCOSE 49 (LL) 70 - 110 mg/dL CREATININE 0.42 (L) 0.60 - 1.25 mg/dL CALCIUM 6.7 (L) 8.6 - 10.6 mg/dL eGFR Calculation (Non-) 230.1 mL/min/1.73m2 eGFR Calculation () 278.9 mL/min/1.73m2 HEPATIC FUNCTION PANEL (49672) (ALB,T.PRO,BILI T,BU/BC,ALT,AST,ALK PHOS) Collection Time: 10/10/20 12:07 PM Result Value Ref Range TOTAL BILI 1.8 (H) 0.1 - 1.1 mg/dL BILI UNCON 1.8 (H) 0.1 - 1.1 mg/dL BILI CONJ 0.0 0.0 - 0.3 mg/dL T PROTEIN 4.7 (L) 6.3 - 8.2 g/dL ALBUMIN 2.1 (L) 3.5 - 5.0 g/dL ALK PHOS 620 (H) 34 - 122 U/L ALTv 450 (H) 5 - 50 U/L AST(SGOT) 677 (H) 13 - 40 U/L Prothrombin Time / INR Collection Time: 10/10/20 12:07 PM Result Value Ref Range PROTIME PATIENT 17.4 (H) 10.1 - 12.6 Seconds INR 1.5 aPTT Collection Time: 10/10/20 12:07 PM Result Value Ref Range APTT Patient 33 26 - 36 Seconds Urinalysis Collection Time: 10/10/20 12:07 PM Result Value Ref Range APPEARANCE Cloudy (A) Clear COLOR Yellow Yellow PH 5.0 4.8 - 8.0 SP GRAVITY 1.035 (H) 1.003 - 1.030 GLU U QUAL Normal Normal BLOOD 1+ (A) Negative KETONES Negative Negative PROTEIN Negative Negative UROBILIN Normal Normal BILIRUBIN Negative Negative NITRITE Negative Negative LEUK ERICK 25/uL (A) Negative RBC/HPF 47 (H) 0 - 3 HPF WBC/HPF 6 (H) 0 - 5 HPF BACTERIA Few (A) Negative MUCOUS Slight (A) Negative LPF COVID-19 (ID NOW RAPID TESTING) Collection Time: 10/10/20 12:07 PM Specimen: NASOPHARYNGEAL SWAB Result Value Ref Range SARS-CoV-2 Rapid ID NOW Not Detected Not Detected IMAGING - reviewed, pertinent results as below: No results found for this visit on 10/10/20. EKG: pending Chart Review: COVID positive 20 days ago ASSESSMENT/PLAN Tahir Ag Jr. is a 35 year old male with PMH as listed above, admitted to the hospital with: #Achalasia #Severe protein calorie malnutrition #Anemia #Thrombocytopenia #Elevated Liver Enzymes #Hx elevated lipase (since 08/23/2020) #Hypoglycemia (BG 49 on admission labs) Patient has had a severe course of inability to swallow diagnosed as achalasia based on barium swallow. Patient awaiting endoscopy for further management and definitive diagnosis. In the past patient compliance has been a challenge with multiple admissions. Potentially his psychiatric history may be contributing to his behavior. Needs close monitoring as patient is at high risk for refeeding syndrome. 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 Chart review is non confirming for completion of treatment. Patient appears to have not finished treatment. -Consider restarting three week course of IM penicillin #Bipolar 1 #Schizophrenia #drug abuse disorder (cocaine, marijuana, hx of Amphetamines) Patient has history of several bipolar disorders. Only options for treatment should be IV. -Consider Psych consult for management Pedro Oliva M.D. Department of Internal Medicine PGY-1, [facility] Team ICAL RESEARCH ASSISTANT Associated attestation - Ramila Johnson MD - 10/11/2020 6:48 AM CSTI personally examined the patient on 10/10/[address] Oliva's resident note with the following addition(s): patient is well known to me with severe protein protein malnutrition secondary to achalasia. He repeatedly does not comply with recommendations with liquid diet and therefore unable to safely perform EGD for diagnostic and future therapeutic purposes. Additionally, he was recently covid-19 positive but now 20 days from initial test and this was when specialists agreed to undergo invasive procedure. He is agreeable to full liquid status for now. Of note, he also CT findings concerning for esophageal perforation earlier this month but no evidence of contrast extravasation on f urther testing. Plan for IVF, monitoring of hypoglycemia and electrolyte repletion including hypocalcemia and hypophosphatemia while monitoring for refeeding syndrome, and monitor abnormal LFTs that have been evaluated at previous admissions. Can finish course of PCN for late latent syphilis. GI cons ulted and appreciate assistance with his care. I actively participated in the decision-making process. Please see the resident's note for additional details. documented in this encounter Procedure Notes Pedro Oliva MD - 10/17/2020 7:48 PM CSTProcedure(s): LUMBAR PUNCTURELUMBAR PUNCTURE PROCEDURE NOTE Date of Service: 10/17/2020 Admit Performed by: Pedro Oliva MD, Rory Allen MD Faculty: Dr. Ramila Johnson Indication/Diagnosis: Concern for Neurosyphilis Consent source: self Consent type: elective procedure and indications/complications discussed with patient/legal guardian; written consent obtained PreProcedure Verification Completed yes, Site Marking Completed yes, Time Out Completed yes. Aseptic technique: Betadine and Hibiclens Anesthesia: local Anesthesia drugs used: lidocaine Instrument(s) type: lumbar tray Procedure site: L3-4 Patient position: lateral decubitus Opening pressure (in cm H2O): insufficient to measure Closing pressure (in cm H2O): N/A Volume removed (in cc): 11 Fluid characteristics: clear Sterile dressing: yes Complications: none Narrative: Cerebral spinal fluid obtained in 2nd attempt. Written consent was obtained from patient. The patient was placed in the lateral decubitus position. The patient was prepped and draped in a sterile fashion. The skin and subcutaneous tissue were numbed with 1% lidocaine. The spinal needle was inserted into the L4-L5 inner space, no CSF fluid was obtained after single attempt, needle was withdrawn with subsequent attempt in the L3 - L4 inner space and CSF was obtained after one attempt(s). Opening pressure was insufficient to be measured. 11cc of clear fluid was obtained and sent for cell count, chemistry, cultures, cytology and VDRL. The spinal needle was removed and a sterile dressing was applied. The patient was instructed to lie supine for two hours post procedure. The patient tolerated the procedure well. Pedro Oliva M.D. Department of Internal Medicine PGY-1, [facility] Team ICAL RESEARCH ASSISTANT Associated attestation - Ramila Johnson MD - 10/17/2020 9:23 PM CSTI was immediately available for the entire procedure(s). Platelets were not needed and no bleeding complications were noted.documented in this encounter Consult Notes Ranjith Orta MD - 10/15/2020 4:00 PM CSTAssociated Order(s): CONSULT INFECTIOUS DISEASE INFECTIOUS DISEASES CONSULT NOTE Date of Service: 10/15/2020 Consultation requested by: Bonilla Vanegas Reason for Consultation: "35M with achalasia, CMV viremia, concern for disseminated CMV and possibleCMV esophagitis. Please assist in evaluation and management." Chief Complaint: dysphagia HISTORY OF PRESENT ILLNESS Tahir Ag Jr. is a 35 year old male who was admitted to our hospital on 10/10/2020 due toworsening dysphagia. His medical history is significant for bipolar disorder, achalasia diagnosed 6 months ago, schizophrenia, and protein calorie malnutrition. Per patient, he attended the ED because of being unable to swallow food anymore. He reports about 20 lbs weight loss the past few months, severe dysphagia and regurgitation of food, and watery non-bloody diarrhea 3-4 episodes per day for the past week. Laboratory exams are remarkable for elevated transaminases since 09/26/2020, back then attributed to ischemic hepatitis during a syncopal event and cocaine use. He left AMA by 10/02/2020. He has been admitted and left AMA the same day of the admission (or the day after) a total of 4 times during this month. During this admission he underwent EGD which showed signs of achalasia with food along the esophagus. Among work up for abnormal transaminases, CMV PCR was found detectable in blood. ID team was contacted due to concerns for CMV esophagitis by the GI team and for assistance with management of syphilis. PAST MEDICAL HISTORY Past Medical History: Diagnosis Date Bipolar 1 disorder GERD (gastroesophageal reflux disease) Manic affective disorder with recurrent episode Schizophrenia No Known Allergies SOCIAL HISTORY Social History Socioeconomic History Marital status: Single Spouse name: Not on file Number of children: 1 Years of education: Not on file Highest education level: High school graduate Occupational History Not on file Social Needs Financial resource strain: Patient refused Food insecurity Worry: Patient refused Inability: Patient refused Transportation needs Medical: Patient refused Non-medical: Patient refused Tobacco Use Smoking status: Current Every Day Smoker Smokeless tobacco: Never Used Tobacco comment: 1/2 pack/ day Substance and Sexual Activity Alcohol use: Not on file Drug use: Not on file Sexual activity: Not on file Lifestyle Physical activity Days per week: Not on file Minutes per session: Not on file Stress: Not on file Relationships Social connections Talks on phone: Not on file Gets together: Not on file Attends mandaen service: Not on file Active member of [...] file Social History Narrative Not on file FAMILY HISTORY No family history on file. MEDICATIONS Current Facility-Administered Medications Medication Dose Route Frequency Last Rate Last Admin FENTanyl PF (SUBLIMAZE (PF)) injection 10 mcg 10 mcg Slow IV Push ONCE FENTanyl PF (SUBLIMAZE (PF)) injection 10 mcg 10 mcg Slow IV Push Q4HPRN atropine injection 0.5 mg 0.5 mg IV Push PRN - SEE INSTRUCTIONS potassium, sodium phosphates (PHOS-NAK) 280-160-250 mg packet 1 Packet 1 Packet Enteral QID Stopped at 10/15/20 0800 ziprasidone (GEODON) injection 10 mg 10 mg Intramuscular Q2HPRN 10 mg at 10/15/20 0831 nicotine (NICODERM) 7 mg/24 hr patch 1 Patch 1 Patch Topical Q24H 1 Patch at 10/15/20 0838 D5W 0.45% NaCl (1/2NS) 1 L + KCL 20 mEq IV Infusion CONTINUOUS 125 mL/hr at 10/15/20 1059 New Bag at 10/15/20 1059 methocarbamoL (ROBAXIN) injection 500 mg 500 mg Intravenous Q8HPRN 500 mg at 10/15/20 1353 pantoprazole (PROTONIX) 40 mg in NaCl 0.9% (NS) 100 mL MINI-BAG 40 mg IV Piggyback Q12H 40 mgat 10/15/20 1100 penicillin g benzathine (BICILLIN L-A) injection 2.4 Million Units 2.4 Million Units Intramuscular QWEEKLY 2.4 Million Units at 10/12/20 2030 dextrose 50 % in water (D50W) injection 50 mL 1 Vial Slow IV Push Q15MIN PRN 50 mL at 10/13/20 0352 REVIEW OF SYSTEMS General: -fever, +chills Skin: -rash, -lesion HEENT: -headache, -change in hearing, -change in vision Neck: -pain, -difficulty swallowing Heme: -bleeding disorder Resp: -cough, -shortness of breath Cardio: -dyspnea on exertion, -chest pain GI: +abdpain, +nausea, +vomiting, +diarrhea : -dysuria, -hematuria Neuro: -numbness, -weakness CAT: -myalgia, -arthralgia PHYSICAL EXAMINATION Vitals: 10/14/20 2359 10/15/20 0415 10/15/20 0810 10/15/20 1208 BP: 121/81 109/78 112/82 118/75 BP Location: Right arm Patient Position: Supine Pulse: 50 (!) 43 62 50 Resp: 18 18 16 18 Temp: 36.1 C (97 F) TempSrc: Oral SpO2: 100% 100% 100% 100% Weight: Height: General: alert and oriented, appears restless Eyes: EOMI, anicteric sclerae Lungs: CTAB Cardio: tachycardic heart rate, S1, S2 normal; no murmurs, rubs or gallops Abdomen: normoactive bowel sounds; soft, non-tender; non-distended Extremities: no clubbing, cyanosis, or edema Skin: warm and dry; no rash Neuro/Psych: restless, disorganized, agitated Hem/lymph: no LAD LABORATORY EXAMS WBC (10*3/L) Date Value 10/11/2020 7.45 HGB (g/dL) Date Value 10/11/2020 11.3 (L) PLT (10*3/L) Date Value 10/11/2020 54 (L) CREATININE (mg/dL) Date Value 10/14/2020 0.63 GLUCOSE (mg/dL) Date Value 10/14/2020 59 (L) ALT(SGPT) (U/L) Date Value 01/10/2019 15 ALTv (U/L) Date Value 10/14/2020 315 (H) AST(SGOT) (U/L) Date Value 10/14/2020 135 (H) ALK PHOS (U/L) Date Value 10/14/2020 781 (H) MICROBIOLOGY 10/10 SARS-CoV-2 Not detected 09/27 MRSA screen Negative 09/27 MSSA screen Positive 10/13 CMV PCR 617 copies/mL (Ref: <516 copies/mL) CMV IgG Positive CMV IgM Negative RADIOLOGY Reviewed ASSESSMENT Tahir Ag Jr. is a 35 year old male with the following problems: 1. Achalasia 2. CMV viremia ; with positive CMV IgG 3. Late latent syphilis - suspect neurosyphilis given behavioral changes 4. Elevated transaminases since 09/26/2020, however, downtrending 5. Polysubstance use disorder: tobacco, cannabis, cocaine, alcohol, IVDU 6. Bipolar disorder 7. Schizophrenia 8. Protein calorie malnutrition 9. Severe hypoalbuminemia 10. Underweight [I] Mr. Ag presents with symptoms of worsening achalasia, as well as agitation and disorganized behavior. At this point, we consider a diagnosis of CMV esophagitis to be unlikely, as it is a disease that manifests mainly in patients with HIV/AIDS or in those profoundly immunocompromised for other r easons (bone marrow transplant, solid organ transplant). It usually presents with large, punched-outulcers, solitary or multiple in number, and located in the middle or distal esophagus. Mr. Ag lacks all these findings on endoscopic examination by the GI team. When suspicion is high, the diagnosis can be made by visualization of CMV inclusion bodies on histopathology. [II] In terms of the CMV viremia or reactivation, it is a phenomenon that has been described in critically ill patients or in those being admitted to the ICU. No evidence to support preemptive therapy,prophylaxis or treatment at present, given that most immunocompetent hosts recover without interventions. [III] In terms of Mr. Ag's elevated transaminases, since his presentation with acute liver injury back in 09/26/2020 they have been progressively downtrending. Cocaine use has been associated to acute hepatitis and liver failure with hepatic necrosis on histopathology [Mildred et al. ARVIND. 2005;293 (7):793-798]. If clinically and logistically plausible, given Mr. Ag's history of leaving the hospital AMA, a liver biopsy may aid in the diagnosis. Nonetheless, would still recommend repeating allviral serologies for hepatitis and HIV. [IV] In terms of Mr Ag's late latent syphilis infection. Given his erratic, disorganized agitated behavior lately, would recommend performing an LP for CSF study to r/o neurosyphilis, as it has been associated with behavioral changes, ronny, and psychosis and it can present at any stage of syphilis infection. RECOMMENDATIONS - No indication for tx of CMV viremia at present, only close observation - Repeat hepatitis serologies for HAV ,HBV, and HCV (given hx of IVDU) - Consider Hepatitis C PCR serum - Quantiferon TB given history of incarceration last year - Repeat HIV 1/2 Ab test - Consider liver biopsy if transaminases remain elevated - LP for CSF study VDRL to evaluate for neurosyphilis - Otherwise agree with penicillin QWeekly for late latent syphilis - Management of achalasia per GI team - F/u on Psych recs, appreciated - Rest per primary team Case discussed with ID Faculty Dr. Eugene. Thank you for this interesting consult. --- Ranjith Edwards M.D. PGY-4, Infectious Disease Fellow Pager: [phone] ICAL RESEARCH ASSISTANT Associated attestation - Autumn Eugene MD - 10/16/2020 8:38 PM CLINICAL RESEARCH ASSISTANT Attending attestation Date of Service: 10/15/2020 I personally examined the patient on the date of service. I actively participated in the decision-making process. I agree w/ Dr Edwards's assessment. Please see the fellow's note for additional details. Autumn Eugene MD mathematics professor of Infectious Disease [facility] CenterAriella irvin MD - 10/13/2020 10:09 AM CSTAssociated Order(s): CONSULT PSYCHIATRY DEPARTMENT OF PSYCHIATRY AND BEHAVIORAL SCIENCE Inpatient Psych/Consult Evaluation [id number] Tahir Ag Jr. 1985 [id number] [facility] [id number] 10/13/2020 REASON FOR CONSULT: Tahir Ag Jr. is a 35 year old male pmh significant for Bipolar I and schizophrenia Patient cannot tolerate PO medications due to current medical condition (achalasia), requesting assistance with IV/IM alternatives REQUESTING PHYSICIAN/ CONTACT INFORMATION: Pedro Oliva MD Berman, Megan A, MD CHIEF COMPLAINT: "I get agitated at times...I'm hungry" HISTORY OF PRESENT ILLNESS: (severity, timing, modifying factors, quality, duration/clinical course,context, associated signs and symptoms) Tahir Ag Jr. is a 35 year old male with a past psychiatric history of schizophrenia and self reported bipolar disorder who is admitted to the hospital for evaluation of achalasia. Patient previously seen by C&L service on 08/27 and 10/03 (please refer to these notes for further history). Patient with frequent readmissions and history of treatment nonadherence. Psychiatry was consulted for assistance with psychotropic medication alternatives, as patient cannot currently tolerate much PO. Today, patient acknowledges that he has been in and out of hospitals for treatment of his achalasia,and reports although he doesn't want to be here, he recognizes that he needs to be, and needs to be compliant with the treatment plan so he can have his procedure done tomorrow. Patient reports he has been adherent with the liquid diet so far, and wants to remain compliant with it until he completes the procedure. He reports feeling hungry, and has been waiting on his food for the past two hours, anddoesn't know where it is. He was seen talking on the phone when team was entering the room. Per staff, patient has constantly been calling the kitchen to inquire about food, and has finished all of thecoffee and sugar in the patient area on the floor. Patient reports history of psychiatric conditions such as schizophrenia and bipolar disorder and describes his medication regimen of zoloft, depakote, geodon, guanfacine, ativan as having been helpful for his mood. However, he reports he has not been taking these medications for the last two months due to issues with keeping food/medications down. He reports his mood has been "iffy, on the rocks" lately. He reports at times, he feels like "I'm gonna lose it". He described feeling "agitated" last night, but couldn't give a specific reason or trigger. He reports it mostly surrounds stress about his current state of health, and frequently having to "check [himself] in and out of the hospital". He reports that he lives with his parents, but describes that he gets kicked out a few days a week. When asked why he gets kicked out/if there are issues between him and his parents, he denies issues, and reports he has to leave because he gets sick frequently and subsequently has to go to the hospital. Patient denies active psychiatric symptoms, denies feeling depressed, and simply reports feeling "confused" about his current situation. He describes having "seen people pass by" out of the corner of his eye in his room this morning, butexpresses he knows they are not really there. States that for the past week, he has had issues with his memory and he has to "constantly remind himself where he's at". Reports chronic issues with sleep, slept 2 hours last night, but denies feeling tired throughout the day. Patient denies SI, HI, and any current psychotic symptoms. Patient reports he enjoys coloring with map pencils and requests some if possible, stating this would help him. PAST PSYCHIATRIC HISTORY: Diagnoses: schizophrenia, self reported bipolar, substance abuse Inpatient: unknown Outpatient: [facility] Current Psychiatric Meds: Zoloft 200 mg daily, Geodon 80 mg BID, Guanfacine 1 mg BID, Depakote EC tab 750 mg BID, Ativan 0.5 mg BID (off medication last 2 months) Previous Psychiatric Meds: unknown PSYCHIATRIC REVIEW OF SYSTEMS: Depression: DENIES Ronny: DENIES Anxiety/Panic: DENIES A/V Hallucinations: see HPI Delusions: DENIES Suicidal Ideation: DENIES Homicidal Ideation: DENIES SUBSTANCE USE: Alcohol: 1-2 beers every few months Tobacco: 5 pack year smoking history Marijuana: 3x/month, last use 2 months ago Amphetamine: previous cocaine, meth use PAST MEDICAL HISTORY: Past Medical History: Diagnosis Date Bipolar 1 disorder GERD (gastroesophageal reflux disease) Manic affective disorder with recurrent episode Schizophrenia No past surgical history on file. MEDICATIONS: Current Facility-Administered Medications Medication Dose Route Frequency Last Rate Last Admin nicotine (NICODERM) 7 mg/24 hr patch 1 Patch 1 Patch Topical Q24H 1 Patch at 10/13/20 0850 D5W 0.45% NaCl (1/2NS) 1 L + KCL 20 mEq IV Infusion CONTINUOUS 125 mL/hr at 10/12/20 0700 Dose/Rate Verify at 10/12/20 0700 phytonadione (VITAMIN K) 10 mg in D5W piggyback 10 mg IV Piggyback DAILY 10 mg at 10/12/20 0924 potassium, sodium phosphates (PHOS-NAK) 280-160-250 mg packet 1 Packet 1 Packet Oral QID 1 Packet at 10/13/20 0850 methocarbamoL (ROBAXIN) injection 500 mg 500 mg Intravenous Q8HPRN 500 mg at 10/13/20 0245 morpHINE injection 2 mg 2 mg Slow IV Push Q6HPRN 2 mg at 10/13/20 0439 pantoprazole (PROTONIX) 40 mg in NaCl 0.9% (NS) 100 mL MINI-BAG 40 mg IV Piggyback Q12H 40 mgat 10/13/20 0848 penicillin g benzathine (BICILLIN L-A) injection 2.4 Million Units 2.4 Million Units Intramuscular QWEEKLY 2.4 Million Units at 10/12/20 2030 dextrose 50 % in water (D50W) injection 50 mL 1 Vial Slow IV Push Q15MIN PRN 50 mL at 10/13/20 0352 SIDE EFFECTS/ALLERGIES: No Known Allergies SOCIAL HISTORY: Lives with parents FAMILY PSYCHIATRIC HISTORY: Not assessed this visit FAMILY MEDICAL HISTORY: No family history on file. VITAL SIGNS: BP 109/85 | Pulse (!)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 38.5 - 51.6 [facility] fL SERVICES RDW-CV 13.8 12.1 - 15.4 [facility] % SERVICES PLT 11 (LL) 150 - 328 [facility] 10*3/L SERVICES MPV Comment: Not [facility] Measured SERVICES IPF % 7.1Comment: 1.2 - 10.7 % [facility] Platelet count SERVICES measured by fluorescence method. NRBC/100 WBC 0.0 0.0 - 10.0 [facility] /100 WBCs SERVICES NRBC x10^3 <0.01 10*3/L [facility] GRAN MAT (NEUT) % 67.7 % [facility] IMM GRAN % 1.00 % [facility] LYMPH % 24.7 % [facility] MONO % 6.3 % [facility] EOS % 0.0 % [facility] BASO % 0.3 % [facility] GRAN MAT x10^3(ANC) 2.03 1.99 - 6.95 [facility] 10*3/uL SERVICES IMM GRAN x10^3 0.03 0.00 - 0.06 [facility] 10*3/uL SERVICES LYMPH x10^3 0.74 (L) 1.09 - 3.23 [facility] 10*3/uL SERVICES MONO x10^3 0.19 (L) 0.36 - 1.02 [facility] 10*3/uL SERVICES EOS x10^3 <0.03 (L) 0.06 - 0.53 [facility] 10*3/uL SERVICES BASO x10^3 <0.03 0.01 - 0.09 [facility] 10*3/uL SERVICES IVAN CELLS 2+ (A) (none) [facility] SERVICES SCHISTOCYTES 1+ (A) [facility] SERVICES BANDS Increased (A) [facility] SERVICES TOXIC CHANGES Present (A) [facility] SERVICES Specimen Blood - ARM, LEFT Performing Organization Address [facility] Phone Number [facility] CLIA: [id number] [place] [address] [place] [address] PHOSPHORUS (10/18/2020 4:28 AM CLINICAL RESEARCH ASSISTANT) Pathologist Sig nature PHOSPHORUS 2.6 2.5 - 5.0 mg/dL [facility] SERVICES Specimen Blood - ARM, LEFT Performing Organization Address [facility] Phone Number [facility] CLIA: [id number] [place] [address] [place] [address] MAGNESIUM (10/18/2020 4:28 AM CLINICAL RESEARCH ASSISTANT) Pathologist Sig nature MAGNESIUM 1.7 1.7 - 2.4 mg/dL [facility] SERVICES Specimen Blood - ARM, LEFT Performing Organization Address [facility] Phone Number [facility] CLIA: [id number] [place] [address] [place] [address] Cerebrospinal Fluid Protein (10/17/2020 7:58 PM CLINICAL RESEARCH ASSISTANT) T. PRO CSF 127.0 (H) 15.0 - 45.0 [facility] mg/dL SERVICES UNSPUN BODY FLUID Colorless [facility] COLOR SERVICES UNSPUN BODY FLUID Clear [facility] CLARITY SERVICES SPUN BODY FLUID Colorless [facility] COLOR SERVICES SPUN BODY FLUID Clear [facility] CLARITY SERVICES Sediment Comment: The [facility] sediment volume SERVICES is <0.1 mLs of the total fluid volume of 1.5cc and its color is red. Specimen Cerebrospinal Fluid - LUMBAR PUNCTURE Performing Organization Address [facility]/Zipcode Phone Number [facility] CLIA: [id number] [place] [address] [place] [address] Cerebrospinal Fluid Glucose (10/17/2020 7:58 PM CLINICAL RESEARCH ASSISTANT) GLU CSF 46 (L) 50 - 80 mg/dL [facility] SERVICES UNSPUN BODY FLUID Colorless [facility] COLOR SERVICES UNSPUN BODY FLUID Clear [facility] CLARITY SERVICES SPUN BODY FLUID Colorless [facility] COLOR SERVICES SPUN BODY FLUID Clear [facility] CLARITY SERVICES Sediment Comment: The [facility] sediment volume SERVICES is <0.1 mLs of the total fluid volume of 1.5cc and its color is red. Specimen Cerebrospinal Fluid - LUMBAR PUNCTURE Performing Organization Address [facility]/[place]ust[facility] Phone Number [facility] CLIA: [id number] [place] [address] [place] [address] BODY FLUID MANUAL DIFF (10/17/2020 7:57 PM CLINICAL RESEARCH ASSISTANT) Pathologist Sig nature #CELS CNTD [facility] SERVICES Specimen Cerebrospinal Fluid - CEREBRAL SPINAL FL UID Narrative Performed At Less than 100 cells counted due to low WBC; Differenti al is [facility] SERVICES not reported in percent. 25 cells counted: 1 Neutrophils, 10 Lymphocytes, 14 Macropha ges Performing Organization Address [facility] Phone Number [facility] CLIA: [id number] [place] [address] [place] [address] BODY FLUID DIRECT COUNT (10/17/2020 7:57 PM CLINICAL RESEARCH ASSISTANT) Pathologist Sig nature BF COLOR Clear [facility] SERVICES BF WBC Count 1 0 - 5 /L [facility] SERVICES BF RBC Count 205 /L [facility] SERVICES Specimen Cerebrospinal Fluid - CEREBRAL SPINAL FL UID Performing Organization Address [facility]/Zipcode Phone Number [facility] CLIA: [id number] [place] [address] [place] [address] ABORH CONFIRMATION (10/17/2020 4:00 PM CLINICAL RESEARCH ASSISTANT) Pathologist Harvey andres ABO & RH AB Positive LAB Comment: Performed at [facility] - [facility] [address] [place] [address], [place], [place] [address] Toll Free: [phone] CLIA No. [id number] Specimen Performing Organization Address City/[facility]/Zipcode Phone Number [facility] Type and Screen - ONCE Routine (10/17/2020 2:57 PM CLINICAL RESEARCH ASSISTANT) Pathologist Sig nature ABO & RH AB POSITIVE LAB Comment: Performed at [facility] - [facility] Blood [place] [address] Toll Free: [phone] CLIA No. [id number] IAT Negative LAB Comment: Performed at [facility] - [facility] Blood [place] [address] Toll Free: [phone] CLIA No. [id number] Specimen Blood - VENOUS Performing Organization Address City/[facility]/Zipcode Phone Number [facility] PROTHROMBIN TIME / INR (10/17/2020 12:26 AM CLINICAL RESEARCH ASSISTANT) Pathologist [facility] PROTIME PATIENT 13.5 (H) 10.1 - 12.6 [facility] Seconds SERVICES INR 1.2Comment: Normal [facility] INR <1.1; Warfarin SERVICES Therapeutic range 2.0 to 3.0 or 2.5 to 3.5, depending upon the indications. Specimen Blood - ARM, RIGHT Performing Organization Address City/[facility]/Zipcode Phone Number [facility] CLIA: [id number] [place] [address] [place] [address] CBC WITH DIFF (10/17/2020 12:26 AM CLINICAL RESEARCH ASSISTANT) WBC 5.49 4.20 - 10.70 [facility] 10*3/L SERVICES RBC 3.68 (L) 4.26 - 5.52 [facility] 10*6/L SERVICES HGB 10.5 (L) 12.2 - 16.4 [facility] g/dL SERVICES HCT 31.1 (L) 38.4 - 49.3 % [facility] SERVICES MCV 84.5 81.7 - 95.6 [facility] fL SERVICES MCH 28.5 26.1 - 32.7 [facility] pg SERVICES MCHC 33.8 31.2 - 35.0 [facility] g/dL SERVICES RDW-SD 43.9 38.5 - 51.6 [facility] fL SERVICES RDW-CV 14.1 12.1 - 15.4 % [facility] PLT 57 (L) 150 - 328 [facility] 10*3/L SERVICES MPV 12.4 9.8 - 13.0 fL [facility] SERVICES IPF % 7.1Comment: Platelet 1.2 - 10.7 % [facility] count measured by SERVICES fluorescence method. NRBC/100 WBC 0.0 0.0 - 10.0 [facility] /100 WBCs SERVICES NRBC x10^3 <0.01 10*3/L [facility] GRAN MAT (NEUT) % 79.9 % [facility] IMM GRAN % 0.40 % [facility] LYMPH % 16.2 % [facility] MONO % 3.3 % [facility] EOS % 0.0 % [facility] BASO % 0.2 % [facility] SERVICES GRAN MAT 4.39 1.99 - 6.95 [facility] x10^3(ANC) 10*3/uL SERVICES IMM GRAN x10^3 <0.03 0.00 - 0.06 [facility] 10*3/uL SERVICES LYMPH x10^3 0.89 (L) 1.09 - 3.23 [facility] 10*3/uL SERVICES MONO x10^3 0.18 (L) 0.36 - 1.02 [facility] 10*3/uL SERVICES EOS x10^3 <0.03 (L) 0.06 - 0.53 [facility] 10*3/uL SERVICES BASO x10^3 <0.03 0.01 - 0.09 [facility] 10*3/uL SERVICES Specimen Blood - ARM, RIGHT Performing Organization Address City/State/Zipcode Phone Number [facility] CLIA: [id number] [place] [address] [place] [address] COMP. METABOLIC PANEL (07926) (10/17/2020 12:25 AM CLINICAL RESEARCH ASSISTANT) NA 133 (L) 135 - 145 [facility] mmol/L SERVICES K 4.2 3.5 - 5.0 [facility] mmol/L SERVICES CL 103 98 - 108 mmol/L [facility] SERVICES CO2 TOTAL 34 (H) 23 - 31 mmol/L [facility] SERVICES AGAP <1 (L) 2 - 16 [facility] SERVICES BUN 16 7 - 23 mg/dL [facility] SERVICES GLUCOSE 91 70 - 110 mg/dL [facility] SERVICES CREATININE 0.42 (L) 0.60 - 1.25 [facility] mg/dL SERVICES TOTAL BILI 1.1 0.1 - 1.1 mg/dL [facility] SERVICES CALCIUM 6.9 (L) 8.6 - 10.6 [facility] mg/dL SERVICES T PROTEIN 4.7 (L) 6.3 - 8.2 g/dL [facility] SERVICES ALBUMIN 2.0 (L) 3.5 - 5.0 g/dL [facility] SERVICES ALK PHOS 538 (H) 34 - 122 U/L [facility] SERVICES ALTv 173 (H) 5 - 50 U/L [facility] SERVICES AST(SGOT) 101 (H) 13 - 40 U/L [facility] SERVICES eGFR Calculation 230.1 mL/min/1.73m2 [facility] (Non- SERVICES Somali) eGFR Calculation 278.9 mL/min/1.73m2 [facility] () SERVICES Specimen Blood - ARM, RIGHT Narrative Performed At Association of Glomerular Filtration Rate (GFR) and St aging [facility] SERVICES of Kidney Disease* + [...] . Performing Organization Address City/State/Zipcode Phone Number [facility] CLIA: [id number] [place] [id number] [address] [place] [address] Bl PHOSPHORUS (10/17/2020 12:25 AM CLINICAL RESEARCH ASSISTANT) Pathologist Sig nature PHOSPHORUS 1.2 (L) 2.5 - 5.0 mg/dL [facility] SERVICES Specimen Blood - ARM, RIGHT Performing Organization Address [facility]/[place] Phone Number [facility] CLIA: [id number] [place] [address] [place] [address] MAGNESIUM (10/17/2020 12:25 AM CLINICAL RESEARCH ASSISTANT) Pathologist Sig nature MAGNESIUM 1.9 1.7 - 2.4 mg/dL [facility] SERVICES Specimen Blood - ARM, RIGHT Performing Organization Address [facility] Phone Number [facility] CLIA: [id number] [place] [address] [place] [address] TROPONIN I (10/16/2020 5:24 AM CLINICAL RESEARCH ASSISTANT) Pathologist Sig nature TROPONIN I 0.015 <=0.034 ng/mL [facility] SERVICES Specimen Blood - ARM, LEFT Narrative Performed At Equal or Less than 0.034 ng/ml---Normal [facility] SERVICES Note: Cardiac troponin begins to [...] patient's use of biotin. Performing Organization Address [facility]/[employer] Phone Number [facility] CLIA: [id number] [place] [address] [place] [address] XR CHEST 1 VW (10/16/2020 1:41 AM CLINICAL RESEARCH ASSISTANT) Specimen Impressions Performed At Impression: Lucencies along the mediastinum may repres ent ingested PACS/VR/DOSE material within dilated esophagus. Clear lungs. Narrative Performed At This result has an attachment that is no t available. Exam: XR CHEST 1 VW 10/16/2020 1:20 AM PACS/VR/DOSE Clinical History: Chest Pain Comparison: Radiograph of 10/11/2020 Technique: frontal view of the chest Findings: The lungs are hyperinflated. An enteric tube terminates within the stomach with the tip out of [id number]. There a re lucencies along the mediastinum which may represent ingested material within dilated esophagus. No pleural effusion. No pneumothorax. The cardiomediastinal silhouette is elongated due to a hyperinflated lungs. No acute osseous abnormality. Exostoses of the left hu meral neck. Procedure Note [facility], Radiant Results Inft User - 2019 6:44 PM CLINICAL RESEARCH ASSISTANT Exam: XR CHEST 1 VW 10/16/2020 1:20 AM Clinical History: Chest Pain Comparison: Radiograph of 10/11/2020 Technique: frontal view of the chest Findings: The lungs are hyperinflated. A n enteric tube terminates within the stomach with the tip out of field-of -view. There are lucencies along the mediastinum which may represent caroline sted material within dilated esophagus. No pleural effusion. No pneu mothorax. The cardiomediastinal silhouette is mary gated due to a hyperinflated lungs. No acute osseous abnormality. Exostoses of the left humeral neck. IMPRESSION Impression: Lucencies along the mediasti num may represent ingested material within dilated esophagus. Clear lungs. Performing Organization Address City/[facility]/Zipcode Phone Number PACS/VR/DOSE EXTRA TUBE LAV (10/16/2020 1:37 AM CLINICAL RESEARCH ASSISTANT) Specimen Blood Performing Organization Address City/[facility]/Zipcode Phone Number [facility] CLIA: [id number] [place] [address] [place] [address] HIV 1/2 AG-AB WITH REFLEX (10/16/2020 1:37 AM CLINICAL RESEARCH ASSISTANT) Pathologist Sig nature HIV 1/2 Ag-Ab with Negative Negative [facility] Reflex SERVICES HIV Semi-quantitative 0.18 [facility] SERVICES Specimen Blood - ARM, RIGHT Narrative Performed At Non-reactive for HIV-1 antigen and HIV-1/HIV-2 antibod ies. [facility] SERVICES No laboratory evidence of HIV infection. Repeat in 2-4 weeks if acute HIV infection is suspected. Performing Organization Address City/[facility]/[place] Phone Number [facility] CLIA: [id number] [place] [address] [place] [address] HCV ANTIBODY (10/16/2020 1:37 AM CLINICAL RESEARCH ASSISTANT) Pathologist Sig nature HCV Ab Negative [facility] SERVICES HCV Semi-Quantitative 0.02 [facility] SERVICES Specimen Blood - ARM, RIGHT Performing Organization Address [facility] Phone Number [facility] CLIA: [id number] [place] [address] [place] [address] HBC ANTIBODY (IGM & IGG) (10/16/2020 1:37 AM CLINICAL RESEARCH ASSISTANT) Pathologist Sig nature HBC Reactive [facility] SERVICES HBC Semi-Quantitative 0.12 [facility] SERVICES Specimen Blood - ARM, RIGHT Performing Organization Address [facility]/[place] Phone Number [facility] CLIA: [id number] [place] [address] [place] [address] HEPATITIS B SURFACE ANTIGEN (10/16/2020 1:37 AM CLINICAL RESEARCH ASSISTANT) Pathologist Sig nature HBsAg Negative Negative [facility] SERVICES HBsAg 0.23 [facility] Semi-Quantitative SERVICES Specimen Blood - ARM, RIGHT Performing Organization Address [facility] Phone Number [facility] CLIA: [id number] [place] [address] [place] [address] HEPATITIS B SURFACE ANTIBODY (10/16/2020 1:37 AM CLINICAL RESEARCH ASSISTANT) Pathologist Sig nature HBsAB Indeterminate [facility] SERVICES HBsAb 9.70 mIU/mL [facility] Semi-Quantitative SERVICES Specimen Blood - ARM, RIGHT Narrative Performed At Unable to determine if antibody to Hepatitis B Surface [facility] SERVICES Antigen is present at levels consistent with immunity. Patient's immune status should be assessed with othe r clinical information and/or retesting in 4-6 weeks as clinically indicated. If any questions, please [facility] Clinical Chemistry Director supervisor front at . Unable to determine if antibody to Hepatitis B Surface Antigen is present at levels consistent with immunity. Patient's immune status should be assessed with othe r clinical information and/or retesting in 4-6 weeks as clinically indicated. If any questions, please [facility] Clinical Chemistry Director supervisor front at ( [phone]. Interpretation: Hepatitis B Surface An tibody Negative - Patient is considered to be not immu ne to infection with HBV. Positive - Anti-HBs detected at greater than or equal to 12 mIU/mL. Patient is considered to be immune to infection with HBV. Performing Organization Address City/[facility]/Zipcode Phone Number [facility] CLIA: [id number] [place] [address] [place] [address] HAV ANTIBODY (IGG AND IGM) (10/16/2020 1:37 AM CLINICAL RESEARCH ASSISTANT) Pathologist Sig nature HAV Total Negative [facility] HAVT Semi-Quantitative 1.23 [facility] SERVICES Specimen Blood - ARM, RIGHT Performing Organization Address [facility]/Zipcode Phone Number [facility] CLIA: [id number] [place] [address] [phone] [address] [facility] COMP. METABOLIC PANEL ([id number]) (10/16/2020 1:37 AM CLINICAL RESEARCH ASSISTANT) NA 130 (L) 135 - 145 [facility] mmol/L SERVICES K 4.6 3.5 - 5.0 [facility] mmol/L SERVICES CL 101 98 - 108 mmol/L [facility] SERVICES CO2 TOTAL 29 23 - 31 mmol/L [facility] SERVICES AGAP <1 (L) 2 - 16 [facility] SERVICES BUN 17 7 - 23 mg/dL [facility] SERVICES GLUCOSE 121 (H) 70 - 110 mg/dL [facility] SERVICES CREATININE 0.31 (L) 0.60 - 1.25 [facility] mg/dL SERVICES TOTAL BILI 1.2 (H) 0.1 - 1.1 mg/dL [facility] SERVICES CALCIUM 7.2 (L) 8.6 - 10.6 [facility] mg/dL SERVICES T PROTEIN 5.1 (L) 6.3 - 8.2 g/dL [facility] SERVICES ALBUMIN 2.2 (L) 3.5 - 5.0 g/dL [facility] SERVICES ALK PHOS 646 (H) 34 - 122 U/L [facility] SERVICES ALTv 233 (H) 5 - 50 U/L [facility] SERVICES AST(SGOT) 134 (H) 13 - 40 U/L [facility] SERVICES eGFR Calculation 326.6 mL/min/1.73m2 [facility] (Non- SERVICES Somali) eGFR Calculation 395.9 mL/min/1.73m2 [facility] () SERVICES Specimen Blood - ARM, RIGHT Narrative Performed At Association of Glomerular Filtration Rate (GFR) and St aging [facility] SERVICES of Kidney Disease* + [...] in imaging tests) . Performing Organization Address [facility] Phone Number [facility] CLIA: [id number] [place] [address] [place] [address] PHOSPHORUS (10/16/2020 1:37 AM CLINICAL RESEARCH ASSISTANT) Pathologist Sig nature PHOSPHORUS 1.2 (L) 2.5 - 5.0 mg/dL [facility] SERVICES Specimen Blood - ARM, RIGHT Performing Organization Address [facility] Phone Number [facility] CLIA: [id number] [place] [address] [phone] 301 [facility] MAGNESIUM (10/16/2020 1:37 AM CLINICAL RESEARCH ASSISTANT) Pathologist Sig nature MAGNESIUM 1.5 (L) 1.7 - 2.4 mg/dL [facility] SERVICES Specimen Blood - ARM, RIGHT Performing Organization Address [facility] Phone Number [facility] CLIA: [id number] [place] [address] [phone] 301 [facility] MAGNESIUM (10/16/2020 1:36 AM CLINICAL RESEARCH ASSISTANT) Pathologist Sig nature MAGNESIUM 1.5 (L) 1.7 - 2.4 mg/dL [facility] SERVICES Specimen Blood - ARM, RIGHT Performing Organization Address City/State/Zipcode Phone Number [facility] CLIA: [id number] [facility] [place] [address] [phone] 301 [facility] BASIC METABOLIC PANEL (NA, K, CL, CO2, GLUCOSE, BUN, CREATININE, CA) (10/16/2020 1:36 AM CLINICAL RESEARCH ASSISTANT) NA 132 (L) 135 - 145 [facility] mmol/L SERVICES K 5.1 (H)Comment: 3.5 - 5.0 [facility] Slight hemolysis mmol/L SERVICES CL 104 98 - 108 [facility] mmol/L SERVICES CO2 TOTAL 29 23 - 31 [facility] mmol/L SERVICES AGAP <1 (L) 2 - 16 [facility] SERVICES BUN 17Comment: Slight 7 - 23 mg/dL [facility] hemolysis SERVICES GLUCOSE 124 (H) 70 - 110 [facility] mg/dL SERVICES CREATININE 0.27 (L) 0.60 - 1.25 [facility] mg/dL SERVICES CALCIUM 7.0 (L) 8.6 - 10.6 [facility] mg/dL SERVICES eGFR Calculation 383.1 mL/min/1.73m2 [facility] (Non- SERVICES Somali) eGFR Calculation 464.3 mL/min/1.73m2 [facility] () SERVICES Specimen Blood - ARM, RIGHT Narrative Performed At Association of Glomerular Filtration Rate (GFR) and St aging [facility] SERVICES of Kidney Disease* + [...] in imaging tests) . Performing Organization Address [facility]/[employer] Phone Number [facility] CLIA: [id number] [place] [address] [place] [address] TROPONIN I (10/16/2020 1:36 AM CLINICAL RESEARCH ASSISTANT) Pathologist Sig nature TROPONIN I 0.017 <=0.034 ng/mL [facility] Specimen Blood - ARM, RIGHT Narrative Performed At Equal or Less than 0.034 ng/ml---Normal [facility] Note: Cardiac troponin begins to [...] patient's use of biotin. Performing Organization Address [facility]/[employer] Phone Number [facility] CLIA: [id number] [place] [address] [place] [address] [place] DOBHOFF TUBE PLACEMENT (10/15/2020 3:40 PM CLINICAL RESEARCH ASSISTANT) Specimen Impressions Performed At PACS/VR/DOSE The Dobhoff tube was successfully positi oned in the third portion of the duodenum. Preliminary Report Dictated by Resident: Luanne Jones I, Nuris Cantrell MD., have reviewed this study and agree with the above report. Narrative Performed At This result has an attachment that is no t available. EXAM: FL DOBHOFF TUBE PLACEMENT PACS/VR/DOSE COMPARISON: None available. HISTORY: Placement of DHT in patient with achalasia FINDINGS: The Dobbhoff tube was inserted in the right nostril an d fluoroscopically guided through the esophagus into the stomach. Air was used to dilate the stomach as the Dobbhoff tube was guided fluoroscopical ly through the pylorus into the duodenum. The Dobbhoff tube was successfully advanced to the thi rd portion of the duodenum. Procedure Note [facility], Radiant Results Inft User - 2019 7:38 PM CLINICAL RESEARCH ASSISTANT EXAM: FL DOBHOFF TUBE PLACEMENT COMPARISON: None available. HISTORY: Placement of DHT in patient wit h achalasia FINDINGS: The Dobbhoff tube was inserted in the ri ght nostril and fluoroscopically guided through the esophagus into the st omach. Air was used to dilate the stomach as the Dobbhoff tube was guided fluoroscopically through the pylorus into the duodenum. The Dobbhoff tube was successfully advan phillip to the third portion of the duodenum. IMPRESSION The Dobhoff tube was successfully positi oned in the third portion of the duodenum. Preliminary Report Dictated by Resident: Luanne Jones I, Nuris Cantrell MD., have review ed this study and agree with the above report. Performing Organization Address [facility]/[employer] Phone Number PACS/VR/DOSE POCT GLUCOSE (AUTOMATED) (10/14/2020 4:06 AM CLINICAL RESEARCH ASSISTANT) Pathologist Sig [facility] POCT GLU 121 (H) 70 - 110 mg/dL [facility] Specimen Blood Performing Organization Address [facility]/[employer] Phone Number [facility] CLIA: [id number] [place] [address] [phone] [address] [facility] POCT GLUCOSE (AUTOMATED) (10/14/2020 2:25 AM CLINICAL RESEARCH ASSISTANT) Pathologist Sig [facility] POCT GLU 192 (H) 70 - 110 mg/dL [facility] Specimen Blood Performing Organization Address [facility]/[employer] Phone Number [facility] CLIA: [id number] [place] [address] [phone] [address] [facility] COMP. METABOLIC PANEL (98820) (10/14/2020 2:19 AM CLINICAL RESEARCH ASSISTANT) Pathologist Sig [facility] NA 137 135 - 145 [facility] mmol/L SERVICES K 4.0 3.5 - 5.0 [facility] mmol/L SERVICES CL 103 98 - 108 mmol/L [facility] SERVICES CO2 TOTAL 35 (H) 23 - 31 mmol/L [facility] AGAP <1 (L) 2 - 16 [facility] BUN 31 (H) 7 - 23 mg/dL [facility] GLUCOSE 59 (L) 70 - 110 mg/dL [facility] CREATININE 0.63 0.60 - 1.25 [facility] mg/dL SERVICES TOTAL BILI 2.3 (H) 0.1 - 1.1 mg/dL [facility] SERVICES CALCIUM 7.4 (L) 8.6 - 10.6 [facility] mg/dL SERVICES T PROTEIN 6.0 (L) 6.3 - 8.2 g/dL [facility] ALBUMIN 2.7 (L) 3.5 - 5.0 g/dL [facility] ALK PHOS 781 (H) 34 - 122 U/L [facility] ALTv 315 (H) 5 - 50 U/L [facility] SERVICES AST(SGOT) 135 (H) 13 - 40 U/L [facility] eGFR Calculation 144.1 mL/min/1.73m2 [facility] (Non- SERVICES Somali) eGFR Calculation 174.7 mL/min/1.73m2 [facility] () SERVICES Specimen Blood - LINE, VENOUS Narrative Performed At Association of Glomerular Filtration Rate (GFR) and St aging [facility] SERVICES of Kidney Disease* + [...] . Performing Organization Address City/State/Zipcode Phone Number [facility] CLIA: [id number] [place] [address] [place] [address] PROTHROMBIN TIME / INR (10/14/2020 2:19 AM CLINICAL RESEARCH ASSISTANT) PROTIME PATIENT 15.3 (H) 10.1 - 12.6 [facility] Seconds SERVICES INR 1.3Comment: Normal [facility] INR <1.1; Warfarin SERVICES Therapeutic range 2.0 to 3.0 or 2.5 to 3.5, depending upon the indications. Specimen Blood - LINE, VENOUS Performing Organization Address [facility] Phone Number [facility] CLIA: [id number] [place] [address] [place] [address] PHOSPHORUS (10/14/2020 2:19 AM CLINICAL RESEARCH ASSISTANT) Pathologist Sig nature PHOSPHORUS 2.7 2.5 - 5.0 mg/dL [facility] SERVICES Specimen Blood - LINE, VENOUS Performing Organization Address [facility] Phone Number [facility] CLIA: [id number] [place] [address] [place] [address] MAGNESIUM (10/14/2020 2:19 AM CLINICAL RESEARCH ASSISTANT) Pathologist Sig nature MAGNESIUM 1.8 1.7 - 2.4 mg/dL [facility] Specimen Blood - LINE, VENOUS Performing Organization Address [facility] Phone Number [facility] CLIA: [id number] [place] [address] [place] [address] POCT GLUCOSE (AUTOMATED) (10/13/2020 8:13 PM CLINICAL RESEARCH ASSISTANT) Pathologist Sig nature POCT GLU 120 (H) 70 - 110 mg/dL [facility] Specimen Blood Performing Organization Address [facility] Phone Number [facility] CLIA: [id number] [place] [address] [place] [address] POCT GLUCOSE (AUTOMATED) (10/13/2020 3:47 PM CLINICAL RESEARCH ASSISTANT) Pathologist Sig nature POCT GLU 131 (H)Comment: 70 - 110 mg/dL [facility] Notified Provider HOSPITAL Specimen Blood Performing Organization Address [facility]/[employer] Phone Number [facility] CLIA: [id number] [place] [address] [phone] [address] [facility] POCT GLUCOSE (AUTOMATED) (10/13/2020 11:07 AM CLINICAL RESEARCH ASSISTANT) Pathologist Sig nature POCT GLU 107Comment: 70 - 110 mg/dL [facility] Specimen Blood Performing Organization Address [facility] Phone Number [facility] CLIA: [id number] [place] [address] [phone] [address] [facility] POCT GLUCOSE (AUTOMATED) (10/13/2020 8:12 AM CLINICAL RESEARCH ASSISTANT) Pathologist Sig nature POCT GLU 202 (H)Comment: 70 - 110 mg/dL [facility] Specimen Blood Performing Organization Address [facility] Phone Number [facility] CLIA: [id number] [place] [address] [phone] [address] [facility] POCT GLUCOSE (AUTOMATED) (10/13/2020 4:43 AM CLINICAL RESEARCH ASSISTANT) Pathologist Sig nature POCT GLU 234 (H) 70 - 110 mg/dL [facility] Specimen Blood Performing Organization Address [facility] Phone Number [facility] CLIA: [id number] [place] [address] [phone] [address] [facility] POCT GLUCOSE (AUTOMATED) (10/13/2020 4:00 AM CLINICAL RESEARCH ASSISTANT) Pathologist Sig nature POCT GLU 237 (H) 70 - 110 mg/dL [facility]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
--- OUTSIDE RECORDS SUMMARY | 2020-11-27 20:03 | XMS REPORT | Summary of Care ---
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 malnourished with PEG tube and jevity feeds only, only allowed clear liquid diet due to achalasia treated with botox injection. Pls job counselor the patient on refraining from food. -Patient has a low threshold for infections, pls evaluate for the same. -Patient is on tube feeds via PEG tube, pls evaluate site and nutritional status. -Patient has a sacral decubitus ulcer, pls evaluate it and job counselor accordingly. To PCP: PATIENT DOES NOT HAVE A PCP [[id number]] Patient's Preferred Location: [facility] - Specify Comments [facility] [place] Discharge Disposition: HOME, (AHR) When (Patients with risk for unplanned readmission score over 16 or those noted as Hospital Dependent should follow up within 7 days with PCP or primary DX specialist): 3-5 Days Risk of Unplanned Readmission:( Score greater than 16 indicates high risk) 60 Clear Liquid Diet; Food Sensitivity Modifiers: None. Food Sensitivity Modifiers None. Discharge Condition - Discharge Condition: FAIR Discharge Activity Discharge Activity: Ambulate Discharge Follow-Up: Specialty Service IM-GASTROENTEROLOGY; 2 Weeks Specialty: IM-GASTROENTEROLOGY [10] Patient's Preferred Location: [place] Discharge Disposition: HOME, (AHR) When (Patients with risk for unplanned readmission score over 16 or those noted as Hospital Dependent should follow up within 7 days with PCP or primary DX specialist): 2 Weeks Risk of Unplanned Readmission:( Score greater than 16 indicates high risk) 60 VTE Propylaxis- Was ordered during hospitalization Discharge Instructions Order Comments: -The patient can only have a clear liquid diet strictly. -To avoid agitation and confusion : Keep the lights on in the day with soothing quiet music Avoid overstimulation at night -Risperidone to be given 1mg in the day and in the evening -Patient has sacral ulcer, pls move him every 2 hours and clean the ulcer with datkins solution and keep it covered with gauze. -Jevity fluids : tube feeds to be given as boluses. - Pls keep up with all your follow up appointments, they're of the utmost necessity. DMEPOS Order Order Comments: Tahir Sanches Jr. [id number] ELEONORA [id number] Estimated KULWANT: 99 Date of Wzlt-[id number] Needs Assessment: 11/14/20 I certify that this patient is under my care and that I, or a nurse practitioner, a certified nurse specialist, or a physician's pier master assistant working with me, had a [id number] encounter that meets the physician [id number] encounter requirement with this patient on the above given date. Diagnosis and Medical Necessity of Requested Service: K22.0 Achalasia (primary encounter diagnosis) R52 Pain R13.10 Esophageal dysphagia E43 Severe protein-calorie malnutrition R64 Cachexia E16.2 Hypoglycemia R50.9 Fever, unspecified fever cause E87.6 Hypokalemia E83.51 Hypocalcemia E83.39 Hypophosphatemia N39.0 Urinary tract infection without hematuria, site unspecified R00.0 Tachycardia Hospital Bed & Accessories: Semi-Electric, Patient Lift and Pressure Reducing Mattress Specific Type: Low air-loss mattress Please Attach the Following (as applicable): Test Results (oximetry, ABG, Sleep Study) and Patient Demographics Sheet I understand and acknowledge that this is not a valid order until it is authenticated by a medical provider who has authority within their Scope of Practice to do so. I am inputting this information in my capacity as a scribe. MARTINA Mccall MD PGY1 Resident MAKER Associated attestation - Ramila Johnson MD - 11/23/2020 4:35 PM CSTI personally examined the patient on 11/23/[address] Osorio's resident note as written. I actively participated in the decision-making process. Please see the resident's note for additional details. documented in this encounter Discharge Instructions AttachmentsThe following attachments cannot be sent through Care Everywhere. Calcium Carbonate oral suspension (Irish)Ergocalciferol, Vitamin D2 oral drops and solution (Irish)Folate (Irish)Gabapentin capsules or tablets (Irish) Acetaminophen; Hydrocodone oral solution (Irish)Hydroxyzine oral solution (Irish)Lidocaine dermal patch (Irish)Magnesium Salts oral solution (Irish) Methocarbamol tablets (Irish)Multivitamin with Minerals and Iron formulations (oral solid dosage forms) (Irish)Nicotine skin patches (Irish)Polyethylene Glycol powder (Irish)Risperidone tablets (Irish)Sodium Hypochlorite topical solution (Irish)Thiamine, Vitamin B1 tablets (Irish)Vitamin B-12 (Irish) Zinc Oxide cream, ointment, paste (Irish)Confusion (Irish)Opioid Medicines, Taking (Irish)Pressure Injuries Form, How, Staff Ed (Irish)Pressure Injuries, Common Sites, Staff Ed (Irish)Pressure Injuries, Protecting Patients from, Staff Ed (Irish)Pressure Injuries, Reducing a Patient's Risk, Staff Ed (Irish)Pressure Injury (Irish)Pressure Injury, Discharge Instructions for (Irish)Pressure Sores, What Are (Irish)Pressure Sores,Preventing (Irish) Wound Care (Irish)Wound Care (Irish)Caring for Your Gastrostomy Tube (G- Tube), Discharge Instructions: (Irish)Feeding Tube Care, Gastrostomy: Flushing (Irish)Feeding Tube Replacement (Irish)PEG Tube Feeding, Understanding (Irish)documented in this encounter Progress Notes Anand Aldana RN - 11/23/2020 3:03 PM [facility] Director Global Development's note: 11/23/2020 3:03 PM Care Management Discharge Disposition Note (DCDN) 5-2-1 Interventions: Disease specific education;Intensive medication reconciliation/management;Teachback;Clear discharge plan;Follow-up appointments;Follow-up phone calls 5-2-1 Providers: Physician;Weight Reducing Technician/Artificial Teeth Inspector;Nurse 5-2-1 Patient Capacity Improvements: Avoidance of adverse events/readmission;Transportation arrangements Discussed with patient/patients family involved in decision making: Patient or family caregiver understands, and agrees with discharge plan Discharge location(s): [address] [place] [address] Community resources/referrals made or provided to patient: No Resources/Referrals: Mental Status: Alert & Oriented to Person, Place Manage ADL indepentdly: Yes Living Arrangement: Home Other living arrangement: Address of living arrangement: [address] [place] [address] Funding Resources: Self Pay Has patient been referred to [facility]? Nursing informed of discharge plan: No CHP referral sent? No PCP: No Transportation: Ambulance [facility] [phone] Prior authorization obtained for ambulance:No CPT code: A0425 - Ground mileage per statute mile Discharge Medications Will the patient be able to obtain his medications? Yes Does the patient have transportation to to obtain the prescription medications? Yes CM Medication Request completed (if appropriate): Yes Name of RN informed: Vita Horne RN Expected discharge date: 11/23/2020 Time: 16:30 Additional Information: Family in room notified about DC and transportation arrangements, they concur with the plan JOSE LUIS Mobley, RN Weekend Director Global Development Available only on Tuesday, Tuesday and Tuesday. Noon 12:00 to Midnight 00:00 [facility] Care Management [email or web address]) F) The following information has been provided to the facility noted above: reason for the patient discharge or transfer; patients physical and psychosocial status; summary of care, treatment, servicesprovided to patient; and the patient progress toward goals. MAKER Aj Osorio MBBS - 11/22/2020 5:22 AM CST [facility] Progress Note Date of Service: 11/22/2020 05:22 24-HOUR EVENTS: NEON SUBJECTIVE: Patient was agitated in the morning, asking for his medications, Is AAOX3 during examination.Has waxing and waning confusion. PHYSICAL EXAM: Vitals: 11/22/20 0031 11/22/20 0043 11/22/20 0141 11/22/20 0405 BP: 101/68 109/66 BP Location: Left arm Left arm Patient Position: Supine Supine Pulse: 117 93 Resp: 16 18 17 17 Temp: 37 C (98.6 F) 36.8 C (98.3 F) TempSrc: Oral Oral SpO2: 97% 98% 98% 100% Weight: Height: Intake/Output Summary (Last 24 hours) at 11/22/2020 0522 Last data filed at 11/22/2020 0413 Gross per 24 hour Intake 4316 ml Output 850 ml Net 3466 ml Physical Exam General : patient is AAOX2, NAD HEENT: MMM, PERRLA Cardio : S1 S2 heard, no murmurs , gallops Lung : CTAB Abdomen : BS +, NTND Extremities: warm, non edematous Skin : clear LABS/IMAGING - reviewed ASSESSMENT/PLAN Tahir Sanches Jr. is a 35 year old male admitted to the hospital with: Toxic Metabolic Encephalopathy of Unknown origin Increased confusion Bipolar disorder Schizophrenia Hx drug abuse (cocaine, amphetamines, marijuana) Patient still reports confusion and anxiety but has much better insight today in the AM. Given the ativan challenge was not successful catatonia is not in the DDx anymore. Will continue with current management and titrate medications as needed. To note EGG with moderate slowing likely in the setting of antipsychotic medication. - Increased Risperidone .75mg - Methocarbamol titrated down to 500mg TID Sinus Tachycardia Achalasia s/p esophageal botox injection, PEG tube placement (10/27/2020) Severe protein calorie malnutrition Comment: Patient rufus is dry and scaly also remains sinus tachycardic. Consider MBS if patient vomitsor unable to tolerate liquids.. - Mg replete as necessary - replete vitamins due to malnutrition :c/w thiamine, B12, multivitamin, folic acid, vitamin D, Caldium carbonate - c/w tube feeds, Jevity, Nutrition consulted Late latent syphilis Sacral ulcer R lung atelectasis (improved) Multiple bilateral patchy opacities (improved) Thrombocytopenia, undetermined etiology Anemia, undetermined etiology (hematuria?) Sacral Decubitus Ulcer Stage 4 -Duoneb Q6H -c/w weekly PCN G -miralax daily -wound care :Dakin's 0.025% wet to dry twice daily. Zinc oxide barrier cream to partial thickness wounds of buttocks and scrotum twice daily and prn with nancy care. 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 is a 35 year old man with PMH of mood disorder,multiple hospital admissions during which he left AMA,polysubstance use disorder, achalasia s/p botox and PEG, noncompliance with dietary restrictions who presented 10/18/2020 after leaving [facility] for continued evaluation of presumed achalasia. GIperformedEGD with manometry diagnosing achalasia. CTS consulted recommending balloon dilation of esophageal sphincter, GIperformed esophagealBotox injection and PEG tube placement. Multidisciplinary meeting held to establish patient support network and plan for outpatient follow up, however, patient developed refeeding syndrome treated with repletion of phosphorous(IV and Enteral)for multiple days. The patient's hospital course was complicated with proteus urosepsis, requiring pressor support and transfer to the MICU 10/28/2020. Patient was stabilized and transferred to the floor 11/01/2020, however, patient developed respiratory distress, rapid called, rapidly decompensated and was transferred back to MICU 11/02/2020 where he was immediately intubated. CT thorax showing bilateral effusions new from prior CT and findings consistent with ARDS and esophageal distension. GI consulted and recommended NGT placement into the esophagus and suction the fluid material and remove NGT afterwards.Patient extubated 11/08/2020, saturating well on RA.Course additionally complicatedby candidemia (lab draw 11/02/2020), CMV viremia (titers drawn 11/02/2020), and worsening sacral ulcer. Patient transferred to floor 11/10/2020 for further monitoring and care. Patient's treatment for fungemia and viremia complete.Patient is showing signs of increased confusion, with neg head CT, psych following Current Facility-Administered Medications Medication Dose Route Frequency Last Rate Last Admin LORazepam (ATIVAN) injection 2 mg 2 mg Slow IV Push PRN - SEE INSTRUCTIONS 2 mg at 11/20/20 9844 risperiDONE (RISPERDAL) tablet 0.75 mg 0.75 mg Oral BID 0.75 mg at 11/21/202012 gabapentin (NEURONTIN) capsule 100 mg 100 mg Oral TID 100 mg at 11/21/202009 lidocaine 1% (PF) (XYLOCAINE) injection 5 mL 5 mL Subcutaneous PRN methocarbamol (ROBAXIN) 50 mg/mL oral suspension 500 mg 500 mg Enteral TID 500 mg at 010 enoxaparin (LOVENOX) injection 40 mg 40 mg Subcutaneous Q24H 40 mg at 11/21/20 1426 magnesium oxide (MAG-OX 400) 40 mg/mL oral suspension 400 mg 400 mg Oral DAILY 400 mg at 11/21/20 0945 HYDROcodone-acetaminophen (HYCET) 7.5-325 mg/15 mL solution 10 mg 10 mg Oral Q6HPRN 10 mg at 11/21/20 0918 hydrOXYzine (ATARAX) 10 mg/5 mL solution 10 mg 10 mg Enteral Q6HPRN 10 mg at 11/19/20 1026 Polyethylene Glycol 3350 (MIRALAX) powder 17 g 17 g Oral DAILY 17 g at 11/21/20 0946 ipratropium-albuteroL (DUONEB) 0.5 mg-3 mg(2.5 mg base)/3 mL nebulizer solution 3 mL 3 mL Inhalation Q6H ABX 3 mL at 11/22/20 0031 NaCl 0.9% (NS) injection 10 mL 10 mL Slow IV Push PRN ergocalciferol (vitamin D2) (CALCIDOL) 200 mcg/mL (8,000 unit/mL) oral drops 2,000 Units 2,000 Units Oral DAILY 2,000 Units at 11/21/20 0945 sodium hypochlorite 0.025% (Dakin's) solution Topical BIDPRN Applied at 11/21/20 211 zinc oxide 20 % ointment Topical PRN Given at 11/17/20 0939 nicotine (NICODERM) 7 mg/24 hr patch 1 Patch 1 Patch Topical [id number] 1 Patch at 11/19/20 0500 dextrose 50 % in water (D50W) injection 50 mL 50 mL Slow IV Push PRN 25 mL at 11/07/20 1826 glucagon (GLUCAGEN DIAGNOSTIC KIT) injection 1 mg 1 mg Intramuscular PRN calcium carbonate 500 mg RINCON CA/5 mL 500 mg/5 mL (1,250 mg/5 mL) suspension 500 mg 500 mg Enteral BID MEALS 500 mg at 11/21/20 1639 foLIC acid (FOLATE) tablet 1 mg 1 mg Enteral DAILY 1 mg at 11/21/20 0946 multivitamin (CENTRUM) solution 15 mL 15 mL Enteral DAILY 15 mL at 11/21/20 0947 vitamin B-12 (CYANOCOBALAMIN) tablet 1,000 mcg 1,000 mcg Enteral DAILY 1,000 mcg at 11/21/20 0945 HYDROcodone-acetaminophen (HYCET) 7.5-325 mg/15 mL solution 7.5 mg 7.5 mg Enteral Q6HPRN 7.5 mg at 11/21/20 1457 thiamine (VITAMIN B1) tablet 100 mg 100 mg Enteral BID 100 mg at 11/21/202009 lidocaine (LIDODERM) 5 % (700 mg/patch) patch 1 Patch 1 Patch Topical DAILY 1 Patch at 11/21/20 0945 MAKER Associated attestation - Ramila Johnson MD - 11/22/2020 5:50 PM CSTI personally examined the patient on 11/22/[address] Osorio's resident note as written. Patient with acute agitation that resolves with redirection. Doing better with current dose of risperidone. Discussed potential for discharge home tomorrow if does well today and patient was agreea ble and happy with plan. I actively participated in the decision-making process. Please see the resident's note for additional details. Lisa Hayden PTA - 11/21/2020 3:11 PM CSTPTA NOTE: Attempted to see pt in AM. Pt with RN present in room, RN requesting PT return at later time. Will check back later for PT session time permitting. Lisa Hayden PTA Supervising PT Merritt Parr MAKER Dixie Smith RN - 11/21/2020 10:39 AM CSTCM called patient's mother to discuss PAP for feeds- left voicemail. Patient will need supporting documents on income for PAP for be completed. CM dropped of PAP in room. CM also requested mother come to room for additional bedside training. Dixie Smith RN (Allie)-BSN Director Global Development [facility] Care Management Office: [phone] [email or web address] iffany Huggins MD - 11/21/2020 6:39 AM CST [facility] Progress Note Date of Service: 11/21/2020 06:39 24-HOUR EVENTS: NEON SUBJECTIVE: Patient reports feeling some confusion and anxiety the per patient gets better with his Risperdal. He also reports some pain in his back. PHYSICAL EXAM: Vitals: 11/20/20 2302 11/21/20 0231 11/21/20 0241 11/21/20 0312 BP: (!) 128/94 109/78 BP Location: Patient Position: Pulse: 126 128 130 116 Resp: 18 18 18 18 Temp: 36.4 C (97.6 F) 36.8 C (98.3 F) TempSrc: Oral Oral SpO2: 99% 99% 99% 100% Weight: Height: Intake/Output Summary (Last 24 hours) at 11/21/2020 0639 Last data filed at 11/21/2020 0620 Gross per 24 hour Intake 2260 ml Output 1850 ml Net 410 ml Physical Exam General : patient is AAOX2 (to person and place) HEENT: MMM, PERRLA Cardio : S1 S2 heard, no murmurs , gallops Lung : CTAB Abdomen : BS +, NTND Extremities: dry, warm Skin : clear LABS/IMAGING - reviewed ASSESSMENT/PLAN Tahir Sanches Jr. is a 35 year old male admitted to the hospital with: Toxic Metabolic Encephalopathy of Unknown origin Increased confusion Bipolar disorder Schizophrenia Hx drug abuse (cocaine, amphetamines, marijuana) Patient still reports confusion and anxiety but has much better insight today in the AM. Given the ativan challenge was not successful catatonia is not in the DDx anymore. Will continue with current management and titrate medications as needed. To note EGG with moderate slowing likely in the setting of antipsychotic medication. - Increased Risperidone .75mg - Methocarbamol titrated down to 500mg TID Sinus Tachycardia Achalasia s/p esophageal botox injection, PEG tube placement (10/27/2020) Severe protein calorie malnutrition Comment: Patient rufus is dry and scaly also remains sinus tachycardic likely in the setting of decrease PO intake as his CLD was removed due to vomiting. Will give bolus PRN - Mg replete as necessary - replete vitamins due to malnutrition :c/w thiamine, B12, multivitamin, folic acid, vitamin D, Caldium carbonate - c/w tube feeds, Jevity, Nutrition consulted Late latent syphilis Sacral ulcer R lung atelectasis (improved) Multiple bilateral patchy opacities (improved) Thrombocytopenia, undetermined etiology Anemia, undetermined etiology (hematuria?) Sacral Decubitus Ulcer Stage 4 -Duoneb Q6H -c/w weekly PCN G -miralax daily -wound care :Dakin's 0.025% wet to dry twice daily. Zinc oxide barrier cream to partial thickness wounds of buttocks and scrotum twice daily and prn with nancy care. 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 is a 35 year old man with PMH of mood disorder,multiple hospital admissions during which he left [place],polysubstance use disorder, achalasia s/p botox and PEG, noncompliance with dietary restrictions who presented 10/18/2020 after leaving [place] for continued evaluation of presumed achalasia. GIperformedEGD with manometry diagnosing achalasia. CTS consulted recommending balloon dilation of esophageal sphincter, GIperformed esophagealBotox injection and PEG tube placement. Multidisciplinary meeting held to establish patient support network and plan for outpatient follow up, however, patient developed refeeding syndrome treated with repletion of phosphorous(IV and Enteral)for multiple days. The patient's hospital course was complicated with proteus urosepsis, requiring pressor support and transfer to the MICU 10/28/2020. Patient was stabilized and transferred to the floor 11/01/2020, however, patient developed respiratory distress, rapid called, rapidly decompensated and was transferred back to MICU 11/02/2020 where he was immediately intubated. CT thorax showing bilateral effusions new from prior CT and findings consistent with ARDS and esophageal distension. GI consulted and recommended NGT placement into the esophagus and suction the fluid material and remove NGT afterwards.Patient extubated 11/08/2020, saturating well on RA.Course additionally complicatedby candidemia (lab draw 11/02/2020), CMV viremia (titers drawn 11/02/2020), and worsening sacral ulcer. Patient transferred to floor 11/10/2020 for further monitoring and care. Patient's treatment for fungemia and viremia complete.Patient is showing signs of increased confusion, with neg head CT, psych following Current Facility-Administered Medications Medication Dose Route Frequency Last Rate Last Admin LORazepam (ATIVAN) injection 2 mg 2 mg Slow IV Push PRN - SEE INSTRUCTIONS 2 mg at 11/20/20 1454 risperiDONE (RISPERDAL) tablet 0.75 mg 0.75 mg Oral BID 0.75 mg at 11/20/20 2224 gabapentin (NEURONTIN) capsule 100 mg 100 mg Oral TID 100 mg at 11/20/20 2047 lidocaine 1% (PF) (XYLOCAINE) injection 5 mL 5 mL Subcutaneous PRN methocarbamol (ROBAXIN) 50 mg/mL oral suspension 500 mg 500 mg Enteral TID 500 mg at 047 enoxaparin (LOVENOX) injection 40 mg 40 mg Subcutaneous Q24H Stopped at 11/20/20 1330 magnesium oxide (MAG-OX 400) 40 mg/mL oral suspension 400 mg 400 mg Oral DAILY 400 mg at 11/20/20 0800 HYDROcodone-acetaminophen (HYCET) 7.5-325 mg/15 mL solution 10 mg 10 mg Oral Q6HPRN 10 mg at 11/17/20 1846 hydrOXYzine (ATARAX) 10 mg/5 mL solution 10 mg 10 mg Enteral Q6HPRN 10 mg at 11/19/20 1026 Polyethylene Glycol 3350 (MIRALAX) powder 17 g 17 g Oral DAILY 17 g at 11/20/20 0800 ipratropium-albuteroL (DUONEB) 0.5 mg-3 mg(2.5 mg base)/3 mL nebulizer solution 3 mL 3 mL Inhalation Q6H ABX 3 mL at 11/21/20 0231 NaCl 0.9% (NS) injection 10 mL 10 mL Slow IV Push PRN ergocalciferol (vitamin D2) (CALCIDOL) 200 mcg/mL (8,000 unit/mL) oral drops 2,000 Units 2,000 Units Oral DAILY 2,000 Units at 11/20/20 0800 sodium hypochlorite 0.025% (Dakin's) solution Topical BIDPRN Given at 11/20/20 1832 zinc oxide 20 % ointment Topical PRN Given at 11/17/20 0939 nicotine (NICODERM) 7 mg/24 hr patch 1 Patch 1 Patch Topical [id number] 1 Patch at 11/19/20 0500 dextrose 50 % in water (D50W) injection 50 mL 50 mL Slow IV Push PRN 25 mL at 11/07/20 1826 glucagon (GLUCAGEN DIAGNOSTIC KIT) injection 1 mg 1 mg Intramuscular PRN calcium carbonate 500 mg RINCON CA/5 mL 500 mg/5 mL (1,250 mg/5 mL) suspension 500 mg 500 mg Enteral BID MEALS 500 mg at 11/20/20 1834 foLIC acid (FOLATE) tablet 1 mg 1 mg Enteral DAILY 1 mg at 11/20/20 0801 multivitamin (CENTRUM) solution 15 mL 15 mL Enteral DAILY 15 mL at 11/20/20 0801 vitamin B-12 (CYANOCOBALAMIN) tablet 1,000 mcg 1,000 mcg Enteral DAILY 1,000 mcg at 11/20/20 0801 HYDROcodone-acetaminophen (HYCET) 7.5-325 mg/15 mL solution 7.5 mg 7.5 mg Enteral Q6HPRN 7.5 mg at 11/17/20 0946 thiamine (VITAMIN B1) tablet 100 mg 100 mg Enteral BID 100 mg at 11/20/20 2047 lidocaine (LIDODERM) 5 % (700 mg/patch) patch 1 Patch 1 Patch Topical DAILY 1 Patch at 11/20/20 0800 MAKER Associated attestation - Ramila Johnson MD - 11/22/2020 5:48 AM CSTI personally examined the patient on 11/21/[address] Voss' resident note as written. I actively participated in the decision-making process. Please see the resident's note for additional details.Brian Ramirez MD - 11/20/2020 1:46 PM CST Psychiatry Consult Progress Note Date of Service: 11/20/2020 CC:"pain" Subjective: Patient found in his bed. AAOx4. Continues to give slow dysarthric responses. Aimcable to lorazepam challenge for catatonia. Continued to deny his presentation is different from pre-intubation. Reportsthat he slept last night, attributes it to the risperdal. Endorses being in pain, says it is his usually pain. Annot describe the pain. Per primary team patient's presentation improved after not receiving Risperdal after It was held twonights ago, but that patient became acutely agitated and disorganized shortly thereafter. Reports the he has intermittent agitation controlled with hydroxyzine PRN. Due to patient's psychomotor retardation and rigidity intermittently concerning for waxy flexibility, we preformed a lorazepam challenge for catatonia. Patient's baseline Akers-German rating was 16. After the first administration of ativan 2 mg IV patient did become More talkative for a few minutes, but this returned closer to his baseline after about 10 minutes. The second dose of ativan was given,and patient became drowsy, with a final Akers-German rating of 10. The main differences in his rating were decrease in rigidity and no waxy flexibility, which was rated present initially but absent on the post-test examination. Patient's waxy flexibility on initial exam remains questionable and could be explained by rigidity. CURRENT MEDICATIONS: Current Facility-Administered Medications Medication Dose Route Frequency Last Rate Last Admin risperiDONE (RISPERDAL) tablet 0.5 mg 0.5 mg Oral BID 0.5 mg at 11/20/20 08 gabapentin (NEURONTIN) capsule 100 mg 100 mg Oral TID 100 mg at 11/20/20 08 lidocaine 1% (PF) (XYLOCAINE) injection 5 mL 5 mL Subcutaneous PRN methocarbamol (ROBAXIN) 50 mg/mL oral suspension 500 mg 500 mg Enteral TID 500 mg at enoxaparin (LOVENOX) injection 40 mg 40 mg Subcutaneous Q24H 40 mg at 11/20/20 08 magnesium oxide (MAG-OX 400) 40 mg/mL oral suspension 400 mg 400 mg Oral DAILY 400 mg at 11/20/20 0800 HYDROcodone-acetaminophen (HYCET) 7.5-325 mg/15 mL solution 10 mg 10 mg Oral Q6HPRN 10 mg at 11/17/20 1846 hydrOXYzine (ATARAX) 10 mg/5 mL solution 10 mg 10 mg Enteral Q6HPRN 10 mg at 11/19/20 1026 Polyethylene Glycol 3350 (MIRALAX) powder 17 g 17 g Oral DAILY 17 g at 11/20/20 0800 ipratropium-albuteroL (DUONEB) 0.5 mg-3 mg(2.5 mg base)/3 mL nebulizer solution 3 mL 3 mL Inhalation Q6H ABX 3 mL at 11/20/20 1256 NaCl 0.9% (NS) injection 10 mL 10 mL Slow IV Push PRN ergocalciferol (vitamin D2) (CALCIDOL) 200 mcg/mL (8,000 unit/mL) oral drops 2,000 Units 2,000 Units Oral DAILY 2,000 Units at 11/20/20 0800 sodium hypochlorite 0.025% (Dakin's) solution Topical BIDPRN Given at 11/20/20 0336 zinc oxide 20 % ointment Topical PRN Given at 11/17/20 0939 nicotine (NICODERM) 7 mg/24 hr patch 1 Patch 1 Patch Topical [id number] 1 Patch at 11/19/20 0500 dextrose 50 % in water (D50W) injection 50 mL 50 mL Slow IV Push PRN 25 mL at 11/07/20 1826 glucagon (GLUCAGEN DIAGNOSTIC KIT) injection 1 mg 1 mg Intramuscular PRN calcium carbonate 500 mg RINCON CA/5 mL 500 mg/5 mL (1,250 mg/5 mL) suspension 500 mg 500 mg Enteral BID MEALS 500 mg at 11/20/20 0801 foLIC acid (FOLATE) tablet 1 mg 1 mg Enteral DAILY 1 mg at 11/20/20 0801 multivitamin (CENTRUM) solution 15 mL 15 mL Enteral DAILY 15 mL at 11/20/20 0801 vitamin B-12 (CYANOCOBALAMIN) tablet 1,000 mcg 1,000 mcg Enteral DAILY 1,000 mcg at 11/20/20 0801 HYDROcodone-acetaminophen (HYCET) 7.5-325 mg/15 mL solution 7.5 mg 7.5 mg Enteral Q6HPRN 7.5 mg at 11/17/20 0946 thiamine (VITAMIN B1) tablet 100 mg 100 mg Enteral BID 100 mg at 11/20/20 0801 lidocaine (LIDODERM) 5 % (700 mg/patch) patch 1 Patch 1 Patch Topical DAILY 1 Patch at 11/20/20 0800 VITAL SIGNS: BP 118/86 | Pulse 98 | Temp 35.8 C (96.5 F) (Oral) | Resp 16 | Ht 1.651 m (5' 5") | Wt 44.8kg (98 lb 11.2 oz) | SpO2 100% | BMI 16.42 kg/m LAB DATA CBC BMP PT/INR WBC (10*3/L) Date Value 11/20/2020 5.89 NA (mmol/L) Date Value 11/20/2020 135 No results found for: PT RBC (10*6/L) Date Value 11/20/2020 3.58 (L) K (mmol/L) Date Value 11/20/2020 4.4 INR (no units) Date Value 11/02/2020 1.1 PLT (10*3/L) Date Value 11/20/2020 416 (H) CALCIUM (mg/dL) Date Value 11/20/2020 7.9 (L) HGB (g/dL) Date Value 11/20/2020 10.8 (L) CL (mmol/L) Date Value 11/20/2020 98 aPTT HCT (%) Date Value 11/20/2020 32.4 (L) BUN (mg/dL) Date Value 11/20/2020 8 APTT Patient (Seconds) Date Value 10/10/2020 33 CREATININE (mg/dL) Date Value 11/20/2020 0.17 (L) MENTAL STATUS EXAM: COMMENTS: cooperative with exam GAIT AND STATION: Patient unable to walk due to pain APPEARANCE: Continues to look confused and cachetic with unblinking stare and frozen facial features ATTITUDE:Cooperative BEHAVIOR: psychomotor retarded, calm, mildly interactive SPEECH:Hypoverbal, difficult speaking mechanically. Low volume, slow rate, shaky rhythm LANGUAGE: Dysarthria MOOD: "good" AFFECT:Frozen THOUGHT PROCESS: Coherent and logical, shows thought blocking THOUGHT CONTENT: Without Delusions SUICIDAL: Not present VIOLENT/HOMICIDAL: Not Present PERCEPTUAL: Without Hallucinations COGNITION: LEVEL OF CONSCIOUSNESS: Mild Stupor ORIENTATION: AAOx4 RECENT AND REMOTE MEMORY: 3/3 at 1 min and 1/3 at 5 min INTELLIGENCE: Able to follow most one-step commands, difficulty with two step FUND OF KNOWLEDGE: ATTENTION AND CONCENTRATION: Poor, cannot complete serial 3's JUDGEMENT: imrpoving INSIGHT:improving ASSESSMENT/PLAN: Tahir Sanches Jr. is a 35 year old male with a psychiatricdisgnosesofschizophrenia,reported bipolar disorder,and polysubstance abuserecently readmitted for achalasia.Psychiatry wasconsulted for medication management.Patient's mental status is mildly improved today. Lorazepam challenge yielded some changes in the Akers-German rating, and despite a momentary response after the first ativan dose, he quickly returned to baseline and became less alert after the second dose making catatonia unlikely. No changes in our recommendations due lorazepam challenge results. Recommend continue Risperdal for agitation. Recommendations: 1)Schizophrenia (primary diagnosis) 2) Delerium - ContinueRisperdal 1 mg BID -Delirium protocol: -Daytime:Frequent reorientation, keep lights on,soothing or ambient music,cognitive stimulating activities. -Nighttime:Minimize disruptionsand pharmacological sleeping medication. -When patient is able, allow for PT/OT early in day. Pt discussed with Dr. Rosado who agrees with the above note. -Psychiatry will continue to monitor Electronically Signed By: Brian Ramirez MD PGY-2 [facility] Department of Psychiatry Consult Pager [phone] MAKER Associated attestation - Gianni Rosado MD - 11/21/2020 4:13 PM CSTI examined this patient, discussed the case with the resident, and directed the medical decision-making. I agree with the resident note. Aj Osorio MBBS - 11/20/2020 5:56 AM CST [facility] Progress Note Date of Service: 11/20/2020 05:56 24-HOUR EVENTS: Patient had a rapid called last evening, was AAOX2 , at baseline per examination by Has pulled out all his IVs and and midlines. SUBJECTIVE: Patient is AAOX1, understand he is confused and wants to meet his sister. PHYSICAL EXAM: Vitals: 11/19/20 2309 11/20/20 0006 11/20/20 0018 11/20/20 0420 BP: 121/86 127/86 BP Location: Left arm Left arm Patient Position: Supine Sitting Pulse: 94 102 Resp: 17 18 18 17 Temp: 37 C (98.6 F) 36.6 C (97.9 F) TempSrc: Oral Oral SpO2: 100% 99% 99% 100% Weight: Height: Intake/Output Summary (Last 24 hours) at 11/20/2020 0556 Last data filed at 11/19/2020 2309 Gross per 24 hour Intake 130 ml Output 1250 ml Net -1120 ml Physical Exam General : patient is AAOX1 HEENT: MMM, PERRLA Cardio : S1 S2 heard, no murmurs , gallops Lung : CTAB Abdomen : BS +, NTND Extremities: dry, warm Skin : clear LABS/IMAGING - reviewed LA : 1.2 ASSESSMENT/PLAN Tahir Sanches Jr. is a 35 year old male admitted to the hospital with: Toxic Metabolic Encephalopathy of Unknown origin Increased confusion Bipolar disorder Schizophrenia Hx drug abuse (cocaine, amphetamines, marijuana) Patient has been agitated and confused, shows cognitive disturbances and change in personality, CT head Neg, consider mittens at night to prevent from pulling lines. -Psych reccs : suspect Catatonia, Ativan challenge today. - Risperidone restarted at .5mg - Methocarbamol titrated down to 500mg TID -EEG ordered Late latent syphilis Sacral ulcer Sinus Tachycardia Patient tachycardic in the morning. -c/w weekly PCN G -miralax daily -wound care :Dakin's 0.025% wet to dry twice daily. Zinc oxide barrier cream to partial thickness wounds of buttocks and scrotum twice daily and prn with nancy care. Achalasia s/p esophageal botox injection, PEG tube placement (10/27/2020) Positive AMA Refeeding syndrome Severe protein calorie malnutrition - Mg replete as necessary - replete vitamins due to malnutrition :c/w thiamine, B12, multivitamin, folic acid, vitamin D, Caldium carbonate - c/w tube feeds, Jevity, Nutrition consulted - dietary to be reconsulted; CLD held, to increase free water R lung atelectasis (improved) Multiple bilateral patchy opacities (improved) Patient satting well on RA. - O2 PP -Duoneb Q6H, vest therapy Thrombocytopenia, undetermined etiology Anemia, undetermined etiology (hematuria?) Sacral Decubitus Ulcer Stage 4 Monitor Hb levels and watch sacral wound for bleeding. 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 is a 35 year old man with PMH of mood disorder,multiple hospital admissions during which he left AMA,polysubstance use disorder, achalasia s/p botox and PEG, noncompliance with dietary restrictions who presented 10/18/2020 after leaving AMA for continued evaluation of presumed achalasia. GIperformedEGD with manometry diagnosing achalasia. CTS consulted recommending balloon dilation of esophageal sphincter, GIperformed esophagealBotox injection and PEG tube placement. Multidisciplinary meeting held to establish patient support network and plan for outpatient follow up, however, patient developed refeeding syndrome treated with repletion of phosphorous(IV and Enteral)for multiple days. The patient's hospital course was complicated with proteus urosepsis, requiring pressor support and transfer to the MICU 10/28/2020. Patient was stabilized and transferred to the floor 11/01/2020, however, patient developed respiratory distress, rapid called, rapidly decompensated and was transferred back to MICU 11/02/2020 where he was immediately intubated. CT thorax showing bilateral effusions new from prior CT and findings consistent with ARDS and esophageal distension. GI consulted and recommended NGT placement into the esophagus and suction the fluid material and remove NGT afterwards.Patient extubated 11/08/2020, saturating well on RA.Course additionally complicatedby candidemia (lab draw 11/02/2020), CMV viremia (titers drawn 11/02/2020), and worsening sacral ulcer. Patient transferred to floor 11/10/2020 for further monitoring and care. Patient's treatment for fungemia and viremia complete.Patient is showing signs of increased confusion, with neg head CT, psych following Current Facility-Administered Medications Medication Dose Route Frequency Last Rate Last Admin gabapentin (NEURONTIN) capsule 100 mg 100 mg Oral TID 100 mg at 11/19/202054 lidocaine 1% (PF) (XYLOCAINE) injection 5 mL 5 mL Subcutaneous PRN methocarbamol (ROBAXIN) 50 mg/mL oral suspension 500 mg 500 mg Enteral TID 500 mg at 055 enoxaparin (LOVENOX) injection 40 mg 40 mg Subcutaneous Q24H Stopped at 11/19/20 1330 magnesium oxide (MAG-OX 400) 40 mg/mL oral suspension 400 mg 400 mg Oral DAILY 400 mg at 11/19/20 1039 HYDROcodone-acetaminophen (HYCET) 7.5-325 mg/15 mL solution 10 mg 10 mg Oral Q6HPRN 10 mg at 11/17/20 1846 hydrOXYzine (ATARAX) 10 mg/5 mL solution 10 mg 10 mg Enteral Q6HPRN 10 mg at 11/19/20 1026 Polyethylene Glycol 3350 (MIRALAX) powder 17 g 17 g Oral DAILY 17 g at 11/19/20 1038 ipratropium-albuteroL (DUONEB) 0.5 mg-3 mg(2.5 mg base)/3 mL nebulizer solution 3 mL 3 mL Inhalation Q6H ABX 3 mL at 11/20/20 0006 NaCl 0.9% (NS) injection 10 mL 10 mL Slow IV Push PRN ergocalciferol (vitamin D2) (CALCIDOL) 200 mcg/mL (8,000 unit/mL) oral drops 2,000 Units 2,000 Units Oral DAILY 2,000 Units at 11/19/20 1039 sodium hypochlorite 0.025% (Dakin's) solution Topical BIDPRN Given at 11/20/20 0336 zinc oxide 20 % ointment Topical PRN Given at 11/17/20 0939 nicotine (NICODERM) 7 mg/24 hr patch 1 Patch 1 Patch Topical [id number] 1 Patch at 11/19/20 0500 dextrose 50 % in water (D50W) injection 50 mL 50 mL Slow IV Push PRN 25 mL at 11/07/20 1826 glucagon (GLUCAGEN DIAGNOSTIC KIT) injection 1 mg 1 mg Intramuscular PRN calcium carbonate 500 mg RINCON CA/5 mL 500 mg/5 mL (1,250 mg/5 mL) suspension 500 mg 500 mg Enteral BID MEALS 500 mg at 11/19/20 1840 foLIC acid (FOLATE) tablet 1 mg 1 mg Enteral DAILY 1 mg at 11/19/20 1039 multivitamin (CENTRUM) solution 15 mL 15 mL Enteral DAILY 15 mL at 11/19/20 1038 vitamin B-12 (CYANOCOBALAMIN) tablet 1,000 mcg 1,000 mcg Enteral DAILY 1,000 mcg at 11/19/20 1038 HYDROcodone-acetaminophen (HYCET) 7.5-325 mg/15 mL solution 7.5 mg 7.5 mg Enteral Q6HPRN 7.5 mg at 11/17/20 0946 thiamine (VITAMIN B1) tablet 100 mg 100 mg Enteral BID 100 mg at 11/19/20 2055 lidocaine (LIDODERM) 5 % (700 mg/patch) patch 1 Patch 1 Patch Topical DAILY 1 Patch at 11/19/20 1026 MAKER Associated attestation - Ramila Johnson MD - 11/20/2020 2:49 PM CSTI personally examined the patient on 11/20/[address] Osorio's resident note as written. Patient appears to be very sensitive to risperidone - on current dose he is somnolent and with lowering he becomes agitated. Currently on lower dose and psychiatry following for further recommendations. I actively participated in the decision-making process. Please see the resident's note for additional details. Gianni Dumont MD - 11/19/2020 7:02 PM CSTBrief progress note: Notified by nursing that rapid was called on Mr. Sanches due to unresponsiveness. On arrival patient is lethargic but A&Ox2-3 (person, place, knew the month but thought it was 2019). Vitals signs were stable from previous with some mild persistent tachycardia which is his baseline. Able to follow commands and no focal neurological deficits; has difficulty moving legs due to severe malnutrition/deconditioning and muscle wasting chronically but no sensory deficits. Will give 500 cc bolus of fluids and draw AM labs early + lactic however believe patient is around baseline mentation currently; received risperidone/atarax this AM due to severe agitation which could possibly be contributing so will hold off on night doses. Gianni Dumont PGY-3 Internal Medicine MAKER Brian Ramirez MD - 11/19/2020 12:46 PM CST Psychiatry Consult Progress Note Date of Service: 11/19/2020 CC:"pain" Subjective: A&O x4 at this time [oriented to person, place, situation, and time]. Patient continues to be limited by thought blocking and dysarthria, exasperated speech. Reports bad sleep last night, endorses disorganized thinking with verbal and physical aggression. Reports this was because he did not receive Risperdal. Performs MSE today including written portion. Patient is mostly coherent and says he does not think his actions last night were confusion from delirium, as he has been delirious in the past. CURRENT MEDICATIONS: Current Facility-Administered Medications Medication Dose Route Frequency Last Rate Last Admin risperiDONE (RISPERDAL) tablet 1 mg 1 mg Oral BID 1 mg at 11/19/20 0742 gabapentin (NEURONTIN) capsule 100 mg 100 mg Oral TID 100 mg at 11/19/20 1038 lidocaine 1% (PF) (XYLOCAINE) injection 5 mL 5 mL Subcutaneous PRN methocarbamol (ROBAXIN) 50 mg/mL oral suspension 500 mg 500 mg Enteral TID 500 mg at 026 enoxaparin (LOVENOX) injection 40 mg 40 mg Subcutaneous Q24H Stopped at 11/19/20 1330 magnesium oxide (MAG-OX 400) 40 mg/mL oral suspension 400 mg 400 mg Oral DAILY 400 mg at 11/19/20 1039 HYDROcodone-acetaminophen (HYCET) 7.5-325 mg/15 mL solution 10 mg 10 mg Oral Q6HPRN 10 mg at 11/17/20 1846 hydrOXYzine (ATARAX) 10 mg/5 mL solution 10 mg 10 mg Enteral Q6HPRN 10 mg at 11/19/20 1026 Polyethylene Glycol 3350 (MIRALAX) powder 17 g 17 g Oral DAILY 17 g at 11/19/20 1038 ipratropium-albuteroL (DUONEB) 0.5 mg-3 mg(2.5 mg base)/3 mL nebulizer solution 3 mL 3 mL Inhalation Q6H ABX Stopped at 11/19/20 0735 NaCl 0.9% (NS) injection 10 mL 10 mL Slow IV Push PRN ergocalciferol (vitamin D2) (CALCIDOL) 200 mcg/mL (8,000 unit/mL) oral drops 2,000 Units 2,000 Units Oral DAILY 2,000 Units at 11/19/20 1039 sodium hypochlorite 0.025% (Dakin's) solution Topical BIDPRN Applied at 11/19/20 1027 zinc oxide 20 % ointment Topical PRN Given at 11/17/20 0939 nicotine (NICODERM) 7 mg/24 hr patch 1 Patch 1 Patch Topical [id number] 1 Patch at 11/19/20 0500 dextrose 50 % in water (D50W) injection 50 mL 50 mL Slow IV Push PRN 25 mL at 11/07/20 1826 glucagon (GLUCAGEN DIAGNOSTIC KIT) injection 1 mg 1 mg Intramuscular PRN calcium carbonate 500 mg RINCON CA/5 mL 500 mg/5 mL (1,250 mg/5 mL) suspension 500 mg 500 mg Enteral BID MEALS 500 mg at 11/19/20 1039 foLIC acid (FOLATE) tablet 1 mg 1 mg Enteral DAILY 1 mg at 11/19/20 1039 multivitamin (CENTRUM) solution 15 mL 15 mL Enteral DAILY 15 mL at 11/19/20 1038 vitamin B-12 (CYANOCOBALAMIN) tablet 1,000 mcg 1,000 mcg Enteral DAILY 1,000 mcg at 11/19/20 1038 HYDROcodone-acetaminophen (HYCET) 7.5-325 mg/15 mL solution 7.5 mg 7.5 mg Enteral Q6HPRN 7.5 mg at 11/17/20 0946 thiamine (VITAMIN B1) tablet 100 mg 100 mg Enteral BID 100 mg at 11/19/20 1039 lidocaine (LIDODERM) 5 % (700 mg/patch) patch 1 Patch 1 Patch Topical DAILY 1 Patch at 11/19/20 1026 VITAL SIGNS: BP 114/81 (BP Location: Right arm, Patient Position: Supine) | Pulse 123 | Temp 36.8 C (98.3 F) (Oral) | Resp 18 | Ht 1.651 m (5' 5") | Wt 44.8 kg (98 lb 11.2 oz) | SpO2 99% | BMI 16.42 kg/m LAB DATA CBC BMP PT/INR WBC (10*3/L) Date Value 11/19/2020 5.91 NA (mmol/L) Date Value 11/19/2020 134 (L) No results found for: PT RBC (10*6/L) Date Value 11/19/2020 3.13 (L) K (mmol/L) Date Value 11/19/2020 3.9 INR (no units) Date Value 11/02/2020 1.1 PLT (10*3/L) Date Value 11/19/2020 338 (H) CALCIUM (mg/dL) Date Value 11/19/2020 7.7 (L) HGB (g/dL) Date Value 11/19/2020 9.2 (L) CL (mmol/L) Date Value 11/19/2020 98 aPTT HCT (%) Date Value 11/19/2020 28.4 (L) BUN (mg/dL) Date Value 11/19/2020 5 (L) APTT Patient (Seconds) Date Value 10/10/2020 33 CREATININE (mg/dL) Date Value 11/19/2020 0.16 (L) MENTAL STATUS EXAM: COMMENTS: cooperative with exam GAIT AND STATION: deferrd APPEARANCE: No change from yesterday's appearence: Cachexia, Older than stated age and still appearsmildly confused ATTITUDE: Cooperative BEHAVIOR: Unable to follow two step commands. Psychomotor retardation in movement of limbs, expression, and speech SPEECH: Hypoverbal, difficult speaking mechanically. Low volume, slow rate, shaky rhythm LANGUAGE: Dysarthria MOOD: shakes head from side to side AFFECT: flat THOUGHT PROCESS: Coherent and logical but with thought blocking or slowing. Poor mentation with cognitive slowing. THOUGHT CONTENT: Without Delusions SUICIDAL: Not present VIOLENT/HOMICIDAL: Not Present PERCEPTUAL: Without Hallucinations COGNITION: LEVEL OF CONSCIOUSNESS: Clouded ORIENTATION: AAOx4 RECENT AND REMOTE MEMORY: 3/3 at 1 min and 0/3 at 5 min INTELLIGENCE: Below average, patient unable to follow most of instrustions FUND OF KNOWLEDGE: Poor, patient asked to name 5 cities outside of [place]. Limited by poor cognition and though blocking. Eventually repeats [place] and [place] over and over until told to stop. ATTENTION AND CONCENTRATION: Poor, cannot complete serial 3's JUDGEMENT: poor, says he would sit and watch a fire if one broke out in a theater INSIGHT: Improved, patient discusses that his actions last night were due to disorganization from his schizophrenia ASSESSMENT/PLAN: Tahir Sanches Jr. is a 35 year old male with a psychiatric disgnoses ofschizophrenia,reported bipolar disorder,and polysubstance abuserecently readmitted for achalasia.Psychiatry was consulted for medication management.Patient is more alert and oriented today but MSE shows cognitiveimpairment inconsistent from pre-intubation MSE. Considering patients thought blocking and psychomotor slowing along with his diagnosis of schizophrenia, use of antipsychotics, and recent psyiologic stressors, a lorazepam challenge for catatonia would aid in diagnostic work up. Recommendations: 1)Schizophrenia (primary diagnosis) 2) Delerium - Restart Risperdal 1 mg BID -Consider Ativan Challenge for catatonia -Delirium protocol: -Daytime:Frequent reorientation, keep lights on,soothing or ambient music, cognitive stimulating activities. -Nighttime: Minimize disruptionsand pharmacological sleeping medication. -When patient is able, allow for PT/OT early in day. Pt discussed with Dr. Browning who agrees with the above note. -Psychiatry will continue to monitor Electronically Signed By: Brian Ramirez MD PGY-2 [facility] Department of Psychiatry Consult Pager [phone] Clock attempt 1 and name spelling Clock attempt 2 and writing "Today is a good day." MAKER Associated attestation - Sabrina Druán MD - 11/19/2020 4:04 PM CSTThe resident examined the patient in person. I examined this patient via telepsychiatry, discussed the case with the resident, and directed the medical decision-making. I agree with the resident note. Verbal consent was obtained from patient for telehealth services below due to COVID-19 Pandemic. The visit was conducted via telephone with audio and video. Location of provider -- [facility] Location of patient -- [facility] Aj Peña MBBS - 11/19/2020 6:49 AM [facility] MAKER [facility] Progress Note Date of Service: 11/19/2020 06:50 24-HOUR EVENTS: Has had 2 episodes of vomiting since yesterday. Extremely confused and crying. Pulled out his midline last night SUBJECTIVE: Patient is very confused in the morning. Risperidone was stopped last night. PHYSICAL EXAM: Vitals: 11/19/20 0008 11/19/20 0205 11/19/20 0215 11/19/20 0559 BP: 121/89 (!) 127/97 BP Location: Patient Position: Pulse: 104 110 110 107 Resp: 17 18 18 17 Temp: 36.4 C (97.6 F) TempSrc: Oral SpO2: 100% 99% 99% 100% Weight: Height: Intake/Output Summary (Last 24 hours) at 11/19/2020 0650 Last data filed at 11/19/2020 0400 Gross per 24 hour Intake 710 ml Output 0 ml Net 710 ml Physical Exam General : patient is AAOX3, NAD, seems more confused than usual. Patient is very confused, crying HEENT: MMM, PERRLA Cardio : S1 S2 heard, no murmurs , gallops Lung : CTAB Abdomen : BS +, NTND Extremities: warm, non edematous Skin : clear LABS/IMAGING - reviewed CT head : negative ASSESSMENT/PLAN Tahir Sanches Jr. is a 35 year old male admitted to the hospital with: Increased confusion Bipolar disorder Schizophrenia Hx drug abuse (cocaine, amphetamines, marijuana) Patient had had 2 episodes of vomitus since yesterday, more latered than before, drank his own vomit. -risperidone stopped yesterday per Psych reccs; consider restarting - Methocarbamol titrated down to 500mg TID - consider EEG candidemia fungemia (resolved) CMV viremia (resolved) Late latent syphilis Sacral ulcer Sinus Tachycardia Patient tachycardic in the morning. -valganciclovir dose completed - micafungin 100mg dose complete for 2 weeks - c/w weekly PCN G - miralax daily -wound care :Dakin's 0.025% wet to dry twice daily. Zinc oxide barrier cream to partial thickness wounds of buttocks and scrotum twice daily and prn with nancy care. Achalasia s/p esophageal botox injection, PEG tube placement (10/27/2020) Positive AMA Refeeding syndrome Severe protein calorie malnutrition - Mg replete as necessary - replete vitamins due to malnutrition :c/w thiamine, B12, multivitamin, folic acid, vitamin D, Caldium carbonate - c/w tube feeds, Jevity, Nutrition consulted - dietary to be reconsulted; CLD held R lung atelectasis (improved) Multiple bilateral patchy opacities (improved) Patient satting well on RA. - O2 PP -Duoneb Q6H, vest therapy Thrombocytopenia, undetermined etiology Anemia, undetermined etiology (hematuria?) Sacral Decubitus Ulcer Stage 4 Monitor Hb levels and watch sacral wound for bleeding. 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 is a 35 year old man with PMH of mood disorder,multiple hospital admissions during which he left AMA,polysubstance use disorder, achalasia s/p botox and PEG, noncompliance with dietary restrictions who presented 10/18/2020 after leaving AMA for continued evaluation of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 daily living, Decline in cognition, Decreased strength, Decreased range of motion, Decreased endurance, Decreased coordination and Caregiver training - Patient appears motivated to improve their B/IADLs and return to their previous level of function. - Patient exhibits limited activity tolerance. - Patient able to follow commands: 1-step Yes, Multi-step Yes, Inconsistencies No Challenges to Home Transition:- Requires physical assistance for BADLS - Requires physical assistance for IADLS - Limited caregiver availability - Decreased safety awareness/judgement - Increased risk of falls Equipment Recommendations:hospital bed with low loss air mattress, reclining wc, Deisy lift Precautions: Weight bearing status: NA General: PPE Utilized: Gloves and Surgical mask, G tube, sacral wound, IV's Bracing: N/A S: Patient agreeable to participate in occupational therapy. Patient states he is comfortable after being positioned by therapy. PAIN Pre-treatment: unrated/10 pain at diffuse/generalized. Post-treatment: unrated/10 pain at diffuse/generalized. Repositioning Provided. O: Patient found semireclining in bed. PT was finishing up upon OT arrival. . Patient seen this datefor the following: ADL Training Grooming: Maximal assist to wash face Toilet Transfer: unable Toileting Hygiene: Dependent. Patient in urine soaked brief. OT and WIRE TWISTER assisted with bed mobility-max assist and diaper change and pericare-total assist. Education provided on calling nursing as soon as he is aware he is wet to promote wound healing and patient provided with a urinal and instructed to call nursing to assist him to use it if he feels the urge to urinate and can wait to promote continence. Therapeutic Exercise/Procedure AROM Jatin UE observed ~ 50% AAROM R UE X 10 reps, all joints , all available planes L UE hand AROM x 10 reps Patient left in partial sidelying to the R with pillows to support bony prominences with call gandara in reach. nursing informed. A: Patient exhibited Poor+ participation in therapy and responded well to treatment this session. P: Functional motor treatment, Patient/Caregivier Education, Equipment recommendations, Daily livingactivities, Therapeutic exercises and Neuromuscular Re-Education TRISTIAN Sorto Total Timed Treatment Codes: 12 Min Total Treatment Time: 12 Min Aj Sprague MBBS - 11/18/2020 5:46 AM SODA MAKER [facility] Progress Note Date of Service: 11/18/2020 05:46 24-HOUR EVENTS: NAEO SUBJECTIVE: Patient states he is a little confused, but less sluggish than yesterday on examination. Feels tired. PHYSICAL EXAM: Vitals: 11/17/20 2325 11/17/20 2335 11/18/20 0031 11/18/20 0418 BP: 115/90 (!) 116/96 BP Location: Right arm Right arm Patient Position: Supine Sitting Pulse: 120 120 123 108 Resp: 16 16 18 18 Temp: 36.4 C (97.6 F) 36.4 C (97.6 F) TempSrc: Axillary Axillary SpO2: 99% 99% 100% 100% Weight: Height: Intake/Output Summary (Last 24 hours) at 11/18/2020 0546 Last data filed at 11/17/20201999 Gross per 24 hour Intake 300 ml Output Net 300 ml Physical Exam General : patient is AAOX3, NAD, seems more confused than usual.Slower than normal HEENT: MMM, PERRLA Cardio : S1 S2 heard, no murmurs , gallops Lung : CTAB Abdomen : BS +, NTND Extremities: warm, non edematous Skin : clear LABS/IMAGING - reviewed CT head : negative ASSESSMENT/PLAN Tahir Sanches Jr. is a 35 year old male admitted to the hospital with: Increased confusion Bipolar disorder Schizophrenia Hx drug abuse (cocaine, amphetamines, marijuana) Patient appears more alert than yesterday. -CT head with contrast : negative -c/w risperidone can cause increased sluggishness and slowing and hydroxyzine , -f/u psych reccomendations - Methocarbamol titrated down to 500mg TID -f/u TSH levels candidemia fungemia (resolved) CMV viremia (resolved) Late latent syphilis Sacral ulcer Sinus Tachycardia Patient is still tachycardic, states he is concerned about his heart -valganciclovir stopped -f/u CMV PCR urine ordered in the AM -f/u sputum PCP - micafungin 100mg Q24H - 11/18 - c/w weekly PCN G - miralax daily -wound care :Dakin's 0.025% wet to dry twice daily. Zinc oxide barrier cream to partial thickness wounds of buttocks and scrotum twice daily and prn with nancy care. Achalasia s/p esophageal botox injection, PEG tube placement (10/27/2020) Positive AMA Refeeding syndrome Severe protein calorie malnutrition Patient's asking for food in the AM - Mg replete as necessary - replete vitamins due to malnutrition :c/w thiamine, B12, multivitamin, folic acid, vitamin D, Caldium carbonate - c/w tube feeds, Jevity, Nutrition consulted - dietary following R lung atelectasis (improved) Multiple bilateral patchy opacities (improved) Patient satting well on RA. - O2 PP -Duoneb Q6H, vest therapy Thrombocytopenia, undetermined etiology Anemia, undetermined etiology (hematuria?) Sacral Decubitus Ulcer Stage 4 Monitor Hb levels and watch sacral wound for bleeding. 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 is a 35 year old man with PMH of mood disorder,multiple hospital admissions during which he left AMA,polysubstance use disorder, achalasia s/p botox and PEG, noncompliance with dietary restrictions who presented 10/18/2020 after leaving AMA for continued evaluation of presumed achalasia. GIperformedEGD with manometry diagnosing achalasia. CTS consulted recommending balloon dilation of esophageal sphincter, GIperformed esophagealBotox injection and PEG tube placement. Multidisciplinary meeting held to establish patient support network and plan for outpatient follow up, however, patient developed refeeding syndrome treated with repletion of phosphorous(IV and Enteral)for multiple days. The patient's hospital course was complicated with proteus urosepsis, requiring pressor support and transfer to the MICU 10/28/2020. Patient was stabilized and transferred to the floor 11/01/2020, however, patient developed respiratory distress, rapid called, rapidly decompensated and was transferred back to MICU 11/02/2020 where he was immediately intubated. CT thorax showing bilateral effusions new from prior CT and findings consistent with ARDS and esophageal distension. GI consulted and recommended NGT placement into the esophagus and suction the fluid material and remove NGT afterwards.Patient extubated 11/08/2020, saturating well on RA.Course additionally complicatedby candidemia (lab draw 11/02/2020), CMV viremia (titers drawn 11/02/2020), and worsening sacral ulcer. Patient transferred to floor 11/10/2020 for further monitoring and care. Patient being managed for pain , malnutrition , candidemia and viremia on the floors.Patient is showing signs of increased confusion, to evaluate for the same. Current Facility-Administered Medications Medication Dose Route Frequency Last Rate Last Admin micafungin (MYCAMINE) 100 mg in NaCl 0.9% (NS) 100 mL MINI-BAG 100 mg IV Piggyback ONCE lidocaine 1% (PF) (XYLOCAINE) injection 5 mL 5 mL Subcutaneous PRN methocarbamol (ROBAXIN) 50 mg/mL oral suspension 500 mg 500 mg Enteral TID 500 mg at 054 NaCl 0.9% (NS) injection 10 mL 10 mL Slow IV Push PRN enoxaparin (LOVENOX) injection 40 mg 40 mg Subcutaneous Q24H 40 mg at 11/17/20 1028 magnesium oxide (MAG-OX 400) 40 mg/mL oral suspension 400 mg 400 mg Oral DAILY 400 mg at 11/17/20 1203 gabapentin (NEURONTIN) capsule 300 mg 300 mg Oral TID 300 mg at 11/17/20 2213 HYDROcodone-acetaminophen (HYCET) 7.5-325 mg/15 mL solution 10 mg 10 mg Oral Q6HPRN 10 mg at 11/17/20 1846 hydrOXYzine (ATARAX) 10 mg/5 mL solution 10 mg 10 mg Enteral Q6HPRN 10 mg at 11/10/20 1935 Polyethylene Glycol 3350 (MIRALAX) powder 17 g 17 g Oral DAILY Stopped at 11/17/20 0900 ipratropium-albuteroL (DUONEB) 0.5 mg-3 mg(2.5 mg base)/3 mL nebulizer solution 3 mL 3 mL Inhalation Q6H ABX 3 mL at 11/17/20 2325 NaCl 0.9% (NS) injection 10 mL 10 mL Slow IV Push PRN ergocalciferol (vitamin D2) (CALCIDOL) 200 mcg/mL (8,000 unit/mL) oral drops 2,000 Units 2,000 Units Oral DAILY 2,000 Units at 11/17/20 0939 sodium hypochlorite 0.025% (Dakin's) solution Topical BIDPRN Given at 11/18/20 0116 zinc oxide 20 % ointment Topical PRN Given at 11/17/20 0939 nicotine (NICODERM) 7 mg/24 hr patch 1 Patch 1 Patch Topical [id number] dextrose 50 % in water (D50W) injection 50 mL 50 mL Slow IV Push PRN 25 mL at 11/07/20 1826 glucagon (GLUCAGEN DIAGNOSTIC KIT) injection 1 mg 1 mg Intramuscular PRN calcium carbonate 500 mg RINCON CA/5 mL 500 mg/5 mL (1,250 mg/5 mL) suspension 500 mg 500 mg Enteral BID MEALS 500 mg at 11/17/20 1707 foLIC acid (FOLATE) tablet 1 mg 1 mg Enteral DAILY 1 mg at 11/17/20 0945 multivitamin (CENTRUM) solution 15 mL 15 mL Enteral DAILY 15 mL at 11/17/20 0939 vitamin B-12 (CYANOCOBALAMIN) tablet 1,000 mcg 1,000 mcg Enteral DAILY 1,000 mcg at 11/17/20 0945 HYDROcodone-acetaminophen (HYCET) 7.5-325 mg/15 mL solution 7.5 mg 7.5 mg Enteral Q6HPRN 7.5 mg at 11/17/20 0946 risperiDONE (RISPERDAL M-TAB) disintegrating tablet 2 mg 2 mg Enteral BID 2 mg at 11/17/202053 thiamine (VITAMIN B1) tablet 100 mg 100 mg Enteral BID 100 mg at 11/17/202053 lidocaine (LIDODERM) 5 % (700 mg/patch) patch 1 Patch 1 Patch Topical DAILY 1 Patch at 11/17/20 0947 MAKER Associated attestation - Ramila Johnson MD - 11/18/2020 9:27 PM CSTI personally examined the patient on 11/18/[address] Osorio's resident note with the following additions: patient continues to have somnolence and confusion. Has negative CT head. Suspect due to medications. Making adjustments today. Appreciate psychiatry assistance in his care. I actively participated in the decision-making process. Please see the resident's note for additional details. Kandace Acosta - 11/17/2020 9:00 PM CSTThis patient was in the hospital during an [employer] EMR downtime on November 17, 2020. Documentation pertaining to this encounter may be located with the associated scanned documents. Kenton Beck MD - 11/17/2020 8:51 PM CST INFECTIOUS DISEASES F/U NOTE Interval history: Patient seen and examined, lying in bed not in any acute distress. Physical Examination: Vitals: 11/17/20 1525 11/17/20 1849 11/17/20 1859 11/17/201956 BP: (!) 136/94 107/74 BP Location: Left arm Right arm Patient Position: Supine Sitting Pulse: 128 125 125 118 Resp: 18 18 18 18 Temp: 36.3 C (97.3 F) 36.5 C (97.7 F) TempSrc: Oral Axillary SpO2: 98% 99% 99% 100% Weight: Height: General: Patient is emaciated Lungs: No wheezing, GI: abdomen soft; non-tender; non-distended; Extremities: no edema Neuro: Weak but able to move all extremities. Skin: No cyanosis Laboratory: Reviewed. Microbiology: Bcx 11/05/20: negative. Blood cultures done on 11/02/2020 growing Zari albicans and Zari glabrata Sputum 11/03/2020: Zari tropicalis Urine culture 10/31/2020 growing Proteus 10/31/2020 blood cultures negative 10/17/2020 CSF cultures negative CSF VDRL negative, glucose 46, protein 127, 1 WBC. HIV test negative. Hepatitis B and hepatitis C negative. Radiology: Reviewed. Assessment: 35-year-old male with history of achalasia, recreational drug use, ID consulted for elevated CMV titers and positive blood cultures for Zari #CMV titers noted to be 359 on 10/13/21 and 23,001 11/02/2020. As patient is malnourished with BMI of 16 would qualify him for being immunocompromised. Switch iv ganciclovir to PO as CMV trending down. Monitor CBC while on the same. F/u PCP from the sputum. (unlikely as has low oxygen requirements.) #s/p 5 days of antibiotics for Proteus in the urine. #Positive blood culture for zari albicans and glabrata likely from old lines(removed). Opthalmic exam unremarkable. TTE showing thickened aortic valve. #severe malnutrition #achalasia, s/p peg tube. Recommendations: -stop valganciclovir on 11/18, completed 2 weeks course and titres are undetectable. Also will predispose to pancytopenia in a patient who is already anemic. -Continue micafungin for fungemia(11/02/20), 2 weeks course as secondary to peripheral IV line that was removed. EOT (11/18/20) -wound care consult, offloading for decubitus ulcer. Close attention to aggressive wound care Thank you for the consult. Case was discussed with attending physician. Kenton Ventura PGY4, ID MAKER Associated attestation - Toney Damon MD - 11/17/2020 10:02 PM CSTI personally examined the patient on 11/17/[address] Ventura's fellow note as written. The CMV viremia did not need treatment. It is unclear to me why it would even be checked and there isno evidence of end organ damage from CMV. If anything, the ganciclovir/valganciclovir may be contributing to anemia. I actively participated in the decision-making process. Please see the resident'snote for additional details.Brian Ramirez MD - 11/17/2020 5:55 PM CSTPsychiatry Consult Brief Note: Stopped back by patient's room later in the day. Speech was still limited and patient refused some of MSE due to pain. Of note patients orientation had decreased, reporting the wrong year. Patient appeared with some psychomotor slowing. Will reassess tomorrow for broader cognitive assessment. No changes in recommendations at this time. Pt discussed with Dr. Rosado who agrees with the above note. Electronically Signed By: Brian Ramirez MD PGY-2 [facility] Department of Psychiatry Consult Pager [phone] MAKER Associated attestation - Gianni Rosado MD - 11/19/2020 9:52 AM CSTI discussed this patient with the resident and directed the medical decision- making. I agree with the resident note. Dixie Smith RN - 11/17/2020 3:41 PM CSTCM spoke to patient's mother Shantel Sanches ph: [phone] Regarding discharge education and DME delivery. Mrs. Sanches said DME is being delivered tomorrow afternoon. Mrs. Sanches said she has had some education and had previous experience taking care of her family member's and peg tubes before, but unfortunately her vehicle is broken down and she is unable to make it to bedside for education. CM willmake sure there are printed instructions upon discharge to help back up her previous experience with wound care/PT/peg cares. CM requested bedside nurse to order extra feeds and wound care supplies for patient to go home with until [facility] kicks in. Dixie "Angely Smith RN-BSN Director Global Development [facility] Care Management Office: [phone] [email or web address] Brian Ramirez MD - 11/17/2020 12:50 PM CST Psychiatry Consult Progress Note Date of Service: 11/17/2020 CC:"Pain" Subjective: Prior to interview patient was heard yelling from his room. Upon interview patient appears in acute distress. He communicates in one to three word answers. He has difficulty talking and his words are forceful and drawn out . AAOx4 to self, place, and situation, and year. Denies SI/HI/AVH. Reports thathis risperdal is working well but cannot answer what it is helping with due to his difficulty in talking. Denies sedation or clouding. Patient becomes exasperated and can no longer interview. CURRENT MEDICATIONS: Current Facility-Administered Medications Medication Dose Route Frequency Last Rate Last Admin lidocaine 1% (PF) (XYLOCAINE) injection 5 mL 5 mL Subcutaneous PRN methocarbamol (ROBAXIN) 50 mg/mL oral suspension 500 mg 500 mg Enteral TID NaCl 0.9% (NS) injection 10 mL 10 mL Slow IV Push PRN enoxaparin (LOVENOX) injection 40 mg 40 mg Subcutaneous Q24H 40 mg at 11/17/20 1028 magnesium oxide (MAG-OX 400) 40 mg/mL oral suspension 400 mg 400 mg Oral DAILY 400 mg at 11/17/20 1203 valGANciclovir (VALCYTE) 50 mg/mL suspension 900 mg 900 mg Oral BID 900 mg at 11/17/20 1028 gabapentin (NEURONTIN) capsule 300 mg 300 mg Oral TID 300 mg at 11/17/20 0945 HYDROcodone-acetaminophen (HYCET) 7.5-325 mg/15 mL solution 10 mg 10 mg Oral Q6HPRN 10 mg at 11/15/208 hydrOXYzine (ATARAX) 10 mg/5 mL solution 10 mg 10 mg Enteral Q6HPRN 10 mg at 11/10/20 193 Polyethylene Glycol 3350 (MIRALAX) powder 17 g 17 g Oral DAILY Stopped at 11/17/20 0900 ipratropium-albuteroL (DUONEB) 0.5 mg-3 mg(2.5 mg base)/3 mL nebulizer solution 3 mL 3 mL Inhalation Q6H ABX 3 mL at 11/17/20 1138 NaCl 0.9% (NS) injection 10 mL 10 mL Slow IV Push PRN ergocalciferol (vitamin D2) (CALCIDOL) 200 mcg/mL (8,000 unit/mL) oral drops 2,000 Units 2,000 Units Oral DAILY 2,000 Units at 11/17/20 0939 sodium hypochlorite 0.025% (Dakin's) solution Topical BIDPRN Given at 11/16/20 195 zinc oxide 20 % ointment Topical PRN Given at 11/17/20 0939 micafungin (MYCAMINE) 100 mg in NaCl 0.9% (NS) 100 mL MINI-BAG 100 mg IV Piggyback Q24H ABX 100 mg at 11/16/20 1001 nicotine (NICODERM) 7 mg/24 hr patch 1 Patch 1 Patch Topical [id number] dextrose 50 % in water (D50W) injection 50 mL 50 mL Slow IV Push PRN 25 mL at 11/07/20 1826 glucagon (GLUCAGEN DIAGNOSTIC KIT) injection 1 mg 1 mg Intramuscular PRN calcium carbonate 500 mg RINCON CA/5 mL 500 mg/5 mL (1,250 mg/5 mL) suspension 500 mg 500 mg Enteral BID MEALS 500 mg at 11/17/20 0939 foLIC acid (FOLATE) tablet 1 mg 1 mg Enteral DAILY 1 mg at 11/17/20 0945 multivitamin (CENTRUM) solution 15 mL 15 mL Enteral DAILY 15 mL at 11/17/20 0939 vitamin B-12 (CYANOCOBALAMIN) tablet 1,000 mcg 1,000 mcg Enteral DAILY 1,000 mcg at 11/17/20 0945 HYDROcodone-acetaminophen (HYCET) 7.5-325 mg/15 mL solution 7.5 mg 7.5 mg Enteral Q6HPRN 7.5 mg at 11/17/20 0946 risperiDONE (RISPERDAL M-TAB) disintegrating tablet 2 mg 2 mg Enteral BID 2 mg at 11/17/20 0939 thiamine (VITAMIN B1) tablet 100 mg 100 mg Enteral BID 100 mg at 11/17/20 0948 lidocaine (LIDODERM) 5 % (700 mg/patch) patch 1 Patch 1 Patch Topical DAILY 1 Patch at 11/17/20 0947 VITAL SIGNS: BP 104/79 (BP Location: Left arm, Patient Position: Supine) | Pulse 110 | Temp 36.6 C (97.9 F)(Oral) | Resp 18 | Ht 1.651 m (5' 5") | Wt 44.8 kg (98 lb 11.2 oz) | SpO2 99% | BMI 16.42 kg/m LAB DATA CBC BMP PT/INR WBC (10*3/L) Date Value 11/17/2020 4.91 NA (mmol/L) Date Value 11/17/2020 134 (L) No results found for: PT RBC (10*6/L) Date Value 11/17/2020 3.58 (L) K (mmol/L) Date Value 11/17/2020 4.2 INR (no units) Date Value 11/02/2020 1.1 PLT (10*3/L) Date Value 11/17/2020 300 CALCIUM (mg/dL) Date Value 11/17/2020 7.2 (L) HGB (g/dL) Date Value 11/17/2020 10.8 (L) CL (mmol/L) Date Value 11/17/2020 100 aPTT HCT (%) Date Value 11/17/2020 31.6 (L) BUN (mg/dL) Date Value 11/17/2020 7 APTT Patient (Seconds) Date Value 10/10/2020 33 CREATININE (mg/dL) Date Value 11/17/2020 <0.15 (L) MENTAL STATUS EXAM: COMMENTS: cooperative with exam GAIT AND STATION:patient in bed, gait exam deferred APPEARANCE: Cachexia, Older than stated age and in distressed with worried and confused looking gaze. ATTITUDE: Cooperative and distressed, limiting interview BEHAVIOR: Yelling intermittently, sitting in bed SPEECH: hypoverbal using long drawn out words, easily exasperated. LANGUAGE: Dysarthria MOOD: "bad" AFFECT: Distressed THOUGHT PROCESS: mostly coherent, difficulty assessing THOUGHT CONTENT: Without Delusions SUICIDAL: Not present VIOLENT/HOMICIDAL: Not Present PERCEPTUAL: Without Hallucinations COGNITION: LEVEL OF CONSCIOUSNESS: Verbally oriented and possibly clouded ORIENTATION: Oriented x 4 RECENT AND REMOTE MEMORY: СЕРГЕЙ INTELLIGENCE: СЕРГЕЙ FUND OF KNOWLEDGE: [facility] ATTENTION AND CONCENTRATION: Fair JUDGEMENT: СЕРГЕЙ INSIGHT: СЕРГЕЙ ASSESSMENT/PLAN: Tahir Sanches Jr. is a 35 year old male with a past psychiatric history ofschizophrenia,reported bipolar disorderand polysubstance abuserecently readmitted for achalasia.Psychiatry wasconsulted for medication management.Patient was intubated for respiratory distress, now being reassess by psychiatry again post-extubation due to worries of declining cognition. Patients presentationtoday decreased from his baseline. Changes in his presentation are significantly affected by his pain and are made difficult to assess due to his decreased ability to speak. Patient's cognition does not appear to be affected but his Risperdal at this time and he reports good effect from the medications with no side effects And answered all questions appropriately, as he was able to. Recommend to continue his medication and we will continue to follow and monitor for changes. Recommendations: 1)Schizophrenia(primary encounter diagnosis) -Continue Risperdal 2 mg BID -Psychiatry will continue to monitor Pt discussed with Dr. Rosado who agrees with the above note. Electronically Signed By: Brian Ramirez MD PGY-2 [facility] Department of Psychiatry Consult Pager [phone] MAKER Associated attestation - Ginani Rosado MD - 11/19/2020 9:53 AM CSTI examined this patient, discussed the case with the resident, and directed the medical decision-making. I agree with the resident note. Dixie Smith RN - 11/17/2020 12:29 PM CSTCare Management Continued Stay Assessment LOS Day: Estimated /Planned Discharge Date: Re-eval [place] male 35 year old Date CM/SW last Face to Face completed with patient/family: 11/14 Funding source: Payor: MEDICAID PENDING / Plan: MEDICAID PENDING / Product Type: Pending / PCP:PATIENT DOES NOT HAVE A PCP Patient/Family/MPOA/Caregiver Engaged with Transitional Care Plan: yes Patient/Family/MPOA/Caregiver concurs with proposed discharge plan: yes Name, Relationship to Patient and contact number of individual acting on behalf of the patient: patient and mother Chief Complaint/Admitting Dx:Achalasia Hospital Problems: Achalasia Severe protein-calorie malnutrition Cachexia Candidemia Cytomegalovirus (CMV) viremia Immunosuppressed status Aspiration pneumonia Unstageable pressure ulcer of sacral region Summary of hospital course: Tahir Sanches Jr. is a 35 year old man with PMH of mood disorder,multiple hospital admissions during which he left A,polysubstance use disorder, achalasia s/p botox and PEG, noncompliance with dietary restrictions who presented 10/18/2020 after leaving AMA for c ontinued evaluation of presumed achalasia. GIperformedEGD with manometry diagnosing achalasia. CTS consulted recommending balloon dilation of esophageal sphincter, GIperformed esophagealBotox injection and PEG tube placement. Multidisciplinary meeting held to establish patient support network and plan for outpatient follow up, however, patient developed refeeding syndrome treated with repletion of phosphorous(IV and Enteral)for multiple days. The patient's hospital course was complicatedwith proteus urosepsis, requiring pressor support and transfer to the MICU 10/28/2020. Patient was stabilized and transferred to the floor 11/01/2020, however, patient developed respiratory distress, rapidcalled, rapidly decompensated and was transferred back to MICU 11/02/2020 where he was immediately intubated. CT thorax showing bilateral effusions new from prior CT and findings consistent with ARDS and esophageal distension. GI consulted and recommended NGT placement into the esophagus and suction the fluid material and remove NGT afterwards.Patient extubated 11/08/2020, saturating well on RA.Course additionally complicated by candidemia (lab draw 11/02/2020), CMV viremia (titers drawn 11/02/2020), and worsening sacral ulcer. Patient transferred to floor 11/10/2020 for further monitoring and care.Patient being managed for pain , malnutrition , candidemia and viremia on the floors.Patient is showing signs of increased confusion, to evaluate for the same. CM/SW Interventions/Resources provided: 10/20 - Initial screening and initial discharge plan established,SFA completed, discharge planning initiated, 211 information to call for food stamps, MASH referral, PAP for feeds submitted, IHC and Casebook applications given. 10/28 - CM working on PAP for dietary needs 10/30 - CM follow up with patient's Invega injections, will need to fax D'c Summary to [phone] 11/04 - touch base with sister, no concerns at this time other than requesting update 11/11- PAP [facility]bot feeds update 11/14- call regarding Discharge planning with mother CM/SW Interventions/Resources still needed: CC/SW to continue to follow and assist in Discharge planning Anticipated Discharge Destination: Home If DC to home, who will support patient: family Anticipated DME needs: Deisy lift and hospital bed Referrals sent: not applicable If no, why/when will referral be sent:: Has patient been accepted: yes - SHARITA approved Revised plan if not accepted: What is the clinical care happening right now that must be done in the hospital and only the hospital: Patient appears much more somnolent than before.No hycet given yesterday. Consider other causes ofincreasing somnolence. -Consider CT head -c/w risperidone and hydroxyzine , -repeat pscyh eval for meds titration Dixie "Mary Kate" MARTINA Smith-BSN Director Global Development [facility] Care Management Office: [phone] [email or web address] MAKER Aj Osorio MBBS - 11/17/2020 7:32 AM CST [facility] Date of Service: 11/17/2020 07:32 24-HOUR EVENTS: NAEO SUBJECTIVE: Patient claims he is feeling pretty good. But looks confused and sluggish. PHYSICAL EXAM: Vitals: 11/16/20 2312 11/17/20 0347 11/17/20 0648 11/17/20 0658 BP: 124/88 BP Location: Patient Position: Pulse: 111 95 108 115 Resp: 16 18 18 18 Temp: 36.1 C (96.9 F) TempSrc: Oral SpO2: 99% 99% 98% 99% Weight: Height: Intake/Output Summary (Last 24 hours) at 11/17/2020 0732 Last data filed at 11/16/2020 1900 Gross per 24 hour Intake 2575 ml Output 2500 ml Net 75 ml Physical Exam General : patient is AAOX3, NAD, seems more confused than usual.Slower than normal HEENT: MMM, PERRLA Cardio : S1 S2 heard, no murmurs , gallops Lung : CTAB Abdomen : BS +, NTND Extremities: warm, non edematous Skin : clear LABS/IMAGING - reviewed EKG : sinus tachycardia ASSESSMENT/PLAN Tahir Sanches Jr. is a 35 year old male admitted to the hospital with: Increased confusion Bipolar disorder Schizophrenia Hx drug abuse (cocaine, amphetamines, marijuana) Patient appears much more somnolent than before.No hycet given yesterday. Consider other causes of increasing somnolence. -CT head with contrast -c/w risperidone and hydroxyzine , -repeat pscyh eval for meds titration - Methocarbamol titrated down to 500mg TID candidemia fungemia (resolved) CMV viremia Late latent syphilis Sacral ulcer Sinus Tachycardia Patient's Tachycardic improved overnight, Bp's stable. CMV PCR is downtrending -Ganciclovir switched to valganciclovir 900mg BID -f/u CMV PCR urine ordered in the AM -f/u sputum PCP - micafungin 100mg Q24H - 11/18 - c/w weekly PCN G - miralax daily -wound care :Dakin's 0.025% wet to dry twice daily. Zinc oxide barrier cream to partial thickness wounds of buttocks and scrotum twice daily and prn with nancy care. Achalasia s/p esophageal botox injection, PEG tube placement (10/27/2020) Positive AMA Refeeding syndrome Severe protein calorie malnutrition Patient's asking for food in the AM - Mg replete as necessary - replete vitamins due to malnutrition :c/w thiamine, B12, multivitamin, folic acid, vitamin D, Caldium carbonate - c/w tube feeds, Jevity, Nutrition consulted -Fluids : LR restarted 200cc/hr, monitor for fluid status - dietary following R lung atelectasis (improved) Multiple bilateral patchy opacities (improved) Patient satting well on RA. - O2 PP -Duoneb Q6H, vest therapy Thrombocytopenia, undetermined etiology Anemia, undetermined etiology (hematuria?) Sacral Decubitus Ulcer Stage 4 Monitor Hb levels and watch sacral wound for bleeding. 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 is a 35 year old man with PMH of mood disorder,multiple hospital admissions during which he left AMA,polysubstance use disorder, achalasia s/p botox and PEG, noncompliance with dietary restrictions who presented 10/18/2020 after leaving AMA for continued evaluation of presumed achalasia. GIperformedEGD with manometry diagnosing achalasia. CTS consulted recommending balloon dilation of esophageal sphincter, GIperformed esophagealBotox injection and PEG tube placement. Multidisciplinary meeting held to establish patient support network and plan for outpatient follow up, however, patient developed refeeding syndrome treated with repletion of phosphorous(IV and Enteral)for multiple days. The patient's hospital course was complicated with proteus urosepsis, requiring pressor support and transfer to the MICU 10/28/2020. Patient was stabilized and transferred to the floor 11/01/2020, however, patient developed respiratory distress, rapid called, rapidly decompensated and was transferred back to MICU 11/02/2020 where he was immediately intubated. CT thorax showing bilateral effusions new from prior CT and findings consistent with ARDS and esophageal distension. GI consulted and recommended NGT placement into the esophagus and suction the fluid material and remove NGT afterwards.Patient extubated 11/08/2020, saturating well on RA.Course additionally complicatedby candidemia (lab draw 11/02/2020), CMV viremia (titers drawn 11/02/2020), and worsening sacral ulcer. Patient transferred to floor 11/10/2020 for further monitoring and care. Patient being managed for pain , malnutrition , candidemia and viremia on the floors.Patient is showing signs of increased confusion, to evaluate for the same. Current Facility-Administered Medications Medication Dose Route Frequency Last Rate Last Admin enoxaparin (LOVENOX) injection 40 mg 40 mg Subcutaneous Q24H 40 mg at 11/16/20 1414 magnesium oxide (MAG-OX 400) 40 mg/mL oral suspension 400 mg 400 mg Oral DAILY valGANciclovir (VALCYTE) 50 mg/mL suspension 900 mg 900 mg Oral BID 900 mg at 11/16/201955 gabapentin (NEURONTIN) capsule 300 mg 300 mg Oral TID 300 mg at 11/16/201955 HYDROcodone-acetaminophen (HYCET) 7.5-325 mg/15 mL solution 10 mg 10 mg Oral Q6HPRN 10 mg at 11/15/202237 hydrOXYzine (ATARAX) 10 mg/5 mL solution 10 mg 10 mg Enteral Q6HPRN 10 mg at 11/10/20 1935 Polyethylene Glycol 3350 (MIRALAX) powder 17 g 17 g Oral DAILY 17 g at 11/16/20 0938 ipratropium-albuteroL (DUONEB) 0.5 mg-3 mg(2.5 mg base)/3 mL nebulizer solution 3 mL 3 mL Inhalation Q6H ABX 3 mL at 11/17/20 0648 NaCl 0.9% (NS) injection 10 mL 10 mL Slow IV Push PRN ergocalciferol (vitamin D2) (CALCIDOL) 200 mcg/mL (8,000 unit/mL) oral drops 2,000 Units 2,000 Units Oral DAILY 2,000 Units at 11/16/20 0938 sodium hypochlorite 0.025% (Dakin's) solution Topical BIDPRN Given at 11/16/201955 zinc oxide 20 % ointment Topical PRN Given at 11/17/20 0337 micafungin (MYCAMINE) 100 mg in NaCl 0.9% (NS) 100 mL MINI-BAG 100 mg IV Piggyback Q24H ABX 100 mg at 11/16/20 1001 nicotine (NICODERM) 7 mg/24 hr patch 1 Patch 1 Patch Topical [id number] dextrose 50 % in water (D50W) injection 50 mL 50 mL Slow IV Push PRN 25 mL at 11/07/20 1826 glucagon (GLUCAGEN DIAGNOSTIC KIT) injection 1 mg 1 mg Intramuscular PRN calcium carbonate 500 mg RINCON CA/5 mL 500 mg/5 mL (1,250 mg/5 mL) suspension 500 mg 500 mg Enteral BID MEALS 500 mg at 11/16/201955 foLIC acid (FOLATE) tablet 1 mg 1 mg Enteral DAILY 1 mg at 11/16/20 0938 methocarbamol (ROBAXIN) 50 mg/mL oral suspension 1,000 mg 1,000 mg Enteral TID 1,000 mg at 11/16/201955 multivitamin (CENTRUM) solution 15 mL 15 mL Enteral DAILY 15 mL at 11/16/20 0939 vitamin B-12 (CYANOCOBALAMIN) tablet 1,000 mcg 1,000 mcg Enteral DAILY 1,000 mcg at 11/16/20 0938 HYDROcodone-acetaminophen (HYCET) 7.5-325 mg/15 mL solution 7.5 mg 7.5 mg Enteral Q6HPRN 7.5 mg at 11/15/20 0959 risperiDONE (RISPERDAL M-TAB) disintegrating tablet 2 mg 2 mg Enteral BID 2 mg at 11/16/201955 thiamine (VITAMIN B1) tablet 100 mg 100 mg Enteral BID 100 mg at 11/16/201955 lidocaine (LIDODERM) 5 % (700 mg/patch) patch 1 Patch 1 Patch Topical DAILY 1 Patch at 11/16/20 0939 MAKER Associated attestation - Ramila Johnson MD - 11/17/2020 2:57 PM CSTI personally examined the patient on 11/17/[address] Osorio's resident note with the following additions: upon my examination patient was more somnolent than usual and had the new compliant of uncontrolled ACUÑA located under his left eye. Will proceed with stat CT head to further investigate for intracranial etiology. I actively participated in the decision-making process. Please see the resident's note for additional details. Kenton Ventura MD - 11/16/2020 5:21 PM CST INFECTIOUS DISEASES F/U NOTE Interval history: Patient seen and examined, lying in bed not in any acute distress. Physical Examination: Vitals: 11/16/20 1112 11/16/20 1126 11/16/20 1623 11/16/20 1706 BP: 118/79 118/86 128/82 BP Location: Left arm Left arm Patient Position: Sitting Sitting Pulse: 137 140 130 136 Resp: 18 18 18 18 Temp: 37.4 C (99.4 F) 36.3 C (97.3 F) 37.6 C (99.7 F) TempSrc: Oral Oral Oral SpO2: 99% 99% 98% 99% Weight: Height: General: Patient is emaciated Lungs: No wheezing, GI: abdomen soft; non-tender; non-distended; Extremities: no edema Neuro: Weak but able to move all extremities. Skin: No cyanosis Laboratory: Reviewed. Microbiology: Bcx 11/05/20: negative. Blood cultures done on 11/02/2020 growing Zari albicans and Zari glabrata Sputum 11/03/2020: Zari tropicalis Urine culture 10/31/2020 growing Proteus 10/31/2020 blood cultures negative 10/17/2020 CSF cultures negative CSF VDRL negative, glucose 46, protein 127, 1 WBC. HIV test negative. Hepatitis B and hepatitis C negative. Radiology: Reviewed. Assessment: 35-year-old male with history of achalasia, recreational drug use, ID consulted for elevated CMV titers and positive blood cultures for Zari #CMV titers noted to be 359 on 10/13/21 and 23,001 11/02/2020. As patient is malnourished with BMI of 16 would qualify him for being immunocompromised. Switch iv ganciclovir to PO as CMV trending down. Monitor CBC while on the same. F/u PCP from the sputum. (unlikely as has low oxygen requirements.) #s/p 5 days of antibiotics for Proteus in the urine. #Positive blood culture for zari albicans and glabrata likely from old lines(removed). Opthalmic exam unremarkable. TTE showing thickened aortic valve. #severe malnutrition #achalasia, s/p peg tube. Recommendations: -stop ganciclovir(11/05--), CMV titres from 11/12/20 <undetectable. -continue valganciclovir 900mg bid. -Continue micafungin for fungemia(11/02/20), 2 weeks course as secondary to peripheral IV line that was removed. EOT (11/18/20) -repeat CMV PCR at am. -wound care consult, offloading for decubitus ulcer. Close attention to aggressive wound care Thank you for the consult. Case was discussed with attending physician. Kenton Ventura PGY4, ID MAKER Associated attestation - Susan Lizarraga DO - 11/16/2020 5:51 PM CSTI personally examined the patient on 11/16/[address] Ventura's note as written. I actively participated in the decision making process. Please see the fellow's note for additional details. Transition to PO valganciclovir today. Please obtain serum CMV PCR tomorrow. Susan Lizarraga DO Infectious Diseases Faculty Aj Osorio MBBS - 11/16/2020 6:31 AM CST [facility] Progress Note Date of Service: 11/16/2020 06:31 24-HOUR EVENTS: NAEO SUBJECTIVE: Feels okay, same energy, has been urinating in the condom catheter okay. Not sure about his diet. PHYSICAL EXAM: Vitals: 11/15/20 2302 11/16/20 0038 11/16/20 0045 11/16/20 0457 BP: 118/83 113/73 BP Location: Right arm Patient Position: Supine Pulse: 118 131 Resp: 18 18 18 18 Temp: 37.2 C (98.9 F) 37.6 C (99.6 F) TempSrc: Oral Oral SpO2: 100% 93% 97% 98% Weight: Height: Intake/Output Summary (Last 24 hours) at 11/16/2020 0631 Last data filed at 11/16/2020 0221 Gross per 24 hour Intake 3404 ml Output 2200 ml Net 1204 ml Physical Exam General : patient is AAOX3, NAD HEENT: MMM, PERRLA Cardio : S1 S2 heard, no murmurs , gallops Lung : CTAB Abdomen : BS +, NTND Extremities: warm, non edematous Skin : clear LABS/IMAGING - reviewed ASSESSMENT/PLAN Tahir Sanches Jr. is a 35 year old male admitted to the hospital with: candidemia fungemia (resolved) CMV viremia Late latent syphilis Sacral ulcer Sinus Tachycardia Patient remains tachycardic, Bp's stable. CMV PCR is downtrending.BCx negative at 48hrs, CONS likelycontaminant. -Ganciclovir switched to valganciclovir 900mg BID -f/u sputum PCP - micafungin 100mg Q24H - 11/18 - c/w weekly PCN G - miralax daily -wound care :Dakin's 0.025% wet to dry twice daily. Zinc oxide barrier cream to partial thickness wounds of buttocks and scrotum twice daily and prn with nancy care. 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 Phosphorous levels consistently stable. Continuous supplementation stopped. Consider Palliative care consult due to multiple comorbidities. - Mg replete as necessary - replete vitamins due to malnutrition :c/w thiamine, B12, multivitamin, folic acid, vitamin D, Caldium carbonate - c/w tube feeds, Jevity -Fluids : LR restarted 200cc/hr, monitor for fluid status - dietary following R lung atelectasis (improved) Multiple bilateral patchy opacities (improved) Patient satting well on RA. - O2 PP -Duoneb Q6H, vest therapy Bipolar disorder Schizophrenia Hx drug abuse (cocaine, amphetamines, marijuana) Patient appears much more somnolent than before. -c/w risperidone and hydroxyzine , -repeat pscyh eval for meds titration Thrombocytopenia, undetermined etiology Anemia, undetermined etiology (hematuria?) Sacral Decubitus Ulcer Stage 4 Monitor Hb levels and watch sacral wound for bleeding. 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 is a 35 year old man with PMH of mood disorder,multiple hospital admissions during which he left [place],polysubstance use disorder, achalasia s/p botox and PEG, noncompliance with dietary restrictions who presented 10/18/2020 after leaving AMA for continued evaluation of presumed achalasia. GIperformedEGD with manometry diagnosing achalasia. CTS consulted recommending balloon dilation of esophageal sphincter, GIperformed esophagealBotox injection and PEG tube placement. Multidisciplinary meeting held to establish patient support network and plan for outpatient follow up, however, patient developed refeeding syndrome treated with repletion of phosphorous(IV and Enteral)for multiple days. The patient's hospital course was complicated with proteus urosepsis, requiring pressor support and transfer to the MICU 10/28/2020. Patient was stabilized and transferred to the floor 11/01/2020, however, patient developed respiratory distress, rapid called, rapidly decompensated and was transferred back to MICU 11/02/2020 where he was immediately intubated. CT thorax showing bilateral effusions new from prior CT and findings consistent with ARDS and esophageal distension. GI consulted and recommended NGT placement into the esophagus and suction the fluid material and remove NGT afterwards.Patient extubated 11/08/2020, saturating well on RA.Course additionally complicatedby candidemia (lab draw 11/02/2020), CMV viremia (titers drawn 11/02/2020), and worsening sacral ulcer. Patient transferred to floor 11/10/2020 for further monitoring and care. Patient being managed for pain , malnutrition , candidemia and viremia on the floors. Current Facility-Administered Medications Medication Dose Route Frequency Last Rate Last Admin valGANciclovir (VALCYTE) 50 mg/mL suspension 900 mg 900 mg Oral BID gabapentin (NEURONTIN) capsule 300 mg 300 mg Oral TID 300 mg at 11/15/202001 HYDROcodone-acetaminophen (HYCET) 7.5-325 mg/15 mL solution 10 mg 10 mg Oral Q6HPRN 10 mg at 11/15/202237 hydrOXYzine (ATARAX) 10 mg/5 mL solution 10 mg 10 mg Enteral Q6HPRN 10 mg at 11/10/20 193 Polyethylene Glycol 3350 (MIRALAX) powder 17 g 17 g Oral DAILY 17 g at 11/14/20 0943 ipratropium-albuteroL (DUONEB) 0.5 mg-3 mg(2.5 mg base)/3 mL nebulizer solution 3 mL 3 mL Inhalation Q6H ABX 3 mL at 11/16/20 0038 NaCl 0.9% (NS) injection 10 mL 10 mL Slow IV Push PRN ergocalciferol (vitamin D2) (CALCIDOL) 200 mcg/mL (8,000 unit/mL) oral drops 2,000 Units 2,000 Units Oral DAILY 2,000 Units at 11/15/20 0954 sodium hypochlorite 0.025% (Dakin's) solution Topical BIDPRN Given at 11/15/202007 zinc oxide 20 % ointment Topical PRN Given at 11/16/20 0525 micafungin (MYCAMINE) 100 mg in NaCl 0.9% (NS) 100 mL MINI-BAG 100 mg IV Piggyback Q24H ABX 100 mg at 11/15/20 1341 nicotine (NICODERM) 7 mg/24 hr patch 1 Patch 1 Patch Topical [id number] dextrose 50 % in water (D50W) injection 50 mL 50 mL Slow IV Push PRN 25 mL at 11/07/20 1826 glucagon (GLUCAGEN DIAGNOSTIC KIT) injection 1 mg 1 mg Intramuscular PRN calcium carbonate 500 mg RINCON CA/5 mL 500 mg/5 mL (1,250 mg/5 mL) suspension 500 mg 500 mg Enteral BID MEALS 500 mg at 11/15/20 1718 foLIC acid (FOLATE) tablet 1 mg 1 mg Enteral DAILY 1 mg at 11/15/20 0955 methocarbamol (ROBAXIN) 50 mg/mL oral suspension 1,000 mg 1,000 mg Enteral TID 1,000 mg at 11/15/202001 multivitamin (CENTRUM) solution 15 mL 15 mL Enteral DAILY 15 mL at 11/15/20 0954 vitamin B-12 (CYANOCOBALAMIN) tablet 1,000 mcg 1,000 mcg Enteral DAILY 1,000 mcg at 11/15/20 0955 HYDROcodone-acetaminophen (HYCET) 7.5-325 mg/15 mL solution 7.5 mg 7.5 mg Enteral Q6HPRN 7.5 mg at 11/15/20 0959 risperiDONE (RISPERDAL M-TAB) disintegrating tablet 2 mg 2 mg Enteral BID 2 mg at 11/15/202001 thiamine (VITAMIN B1) tablet 100 mg 100 mg Enteral BID 100 mg at 11/15/202001 lidocaine (LIDODERM) 5 % (700 mg/patch) patch 1 Patch 1 Patch Topical DAILY 1 Patch at 11/15/20 0953 MAKER Associated attestation - Ramila Johnson MD - 11/16/2020 5:28 PM CSTI personally examined the patient on 11/16/[address] Osorio's resident note with the following addition(s): noted tachycardia that has been persistent and worsened the past few days. Patient denies fevers, dyspnea, or pain. He is not hypoxic. Removed indwelling baltazar and now with condom catheter with good urine output. No leg swelling or palpable cords in BLE. Has not been on pharmacologic DVT proph (but has been on SCDs) since 10/02/20 due to severe thrombocytopenia that has since resolved. Plan to administer blood today for severe anemia as may be contributing and check ECG. May considerholding beta-agonists, restart LMWH, and bladder scan to rule out urinary retention. I actively participated in the decision-making process. Please see the resident's note for additional details. Kenton Ventura MD - 11/15/2020 11:17 PM CST INFECTIOUS DISEASES F/U NOTE Interval history: Patient seen and examined, lying in bed not in any acute distress. Physical Examination: Vitals: 11/15/20 1909 11/15/20 1925 11/15/20 19411/15/20 2302 BP: 130/78 118/83 BP Location: Pulse: 136 118 Resp: 18 18 18 18 Temp: 37.3 C (99.1 F) 37.2 C (98.9 F) TempSrc: Oral Oral SpO2: 98% 96% 97% 100% Weight: Height: General: Patient is emaciated Lungs: No wheezing, GI: abdomen soft; non-tender; non-distended; Extremities: no edema Neuro: Weak but able to move all extremities. Skin: No cyanosis Laboratory: Reviewed. Microbiology: Bcx 11/05/20: negative. Blood cultures done on 11/02/2020 growing Zari albicans and Zari glabrata Sputum 11/03/2020: Zari tropicalis Urine culture 10/31/2020 growing Proteus 10/31/2020 blood cultures negative 10/17/2020 CSF cultures negative CSF VDRL negative, glucose 46, protein 127, 1 WBC. HIV test negative. Hepatitis B and hepatitis C negative. Radiology: Chest x-ray 11/02/2020 reviewed, CT of the thorax ordered on 11/03/[address] chest abdomen pelvis done on 10/31/2020 with contrast: Bilateral [id number] pleural effusions Bilateral patchy groundglass opacities most prominent in the right upper lobe Partially visualized exophytic sclerotic lesion in the left humerus may represent osteochondroma Distended esophagus, consistent with history of achalasia Ascites, anasarca right hemiscrotum moderate to large hydrocele. Assessment: 35-year-old male with history of achalasia, recreational drug use, ID consulted for elevated CMV titers and positive blood cultures for Zari #CMV titers noted to be 359 on 10/13/21 and 23,001 11/02/2020. As patient is malnourished with BMI of 16 would qualify him for being immunocompromised. Switch iv ganciclovir to PO as CMV trending down. Monitor CBC while on the same. F/u PCP from the sputum. (unlikely as has low oxygen requirements.) #s/p 5 days of antibiotics for Proteus in the urine. #Positive blood culture for zari albicans and glabrata likely from old lines(removed). Opthalmic exam unremarkable. TTE showing thickened aortic valve. #severe malnutrition #achalasia, s/p peg tube. Recommendations: -stop ganciclovir(11/05--), CMV titres from 11/12/20 <516 -start valganciclovir 900mg bid. -f/u sputum for PCP. -Continue micafungin for fungemia(11/02/20), 2 weeks course as secondary to peripheral IV line that was removed. EOT (11/18/20) -wound care consult, offloading for decubitus ulcer. Close attention to aggressive wound care Thank you for the consult. Case was discussed with attending physician. Kenton Ventura PGY4, ID MAKER Associated attestation - Zia January, - 11/16/2020 4:51 PM CSTI personally examined the patient on 11/15/[address] Ventura's note as written. I actively participated in the decision making process. Please see the fellow's note for additional details. Susan DO [facility] Infectious Diseases Faculty Aj Osorio MBBS - 11/15/2020 6:39 AM CST [facility] Progress Note Date of Service: 11/15/2020 06:39 24-HOUR EVENTS: NAEO SUBJECTIVE: Patient feels good, has more energy than before. Slept well overnight PHYSICAL EXAM: Vitals: 11/14/20 2038 11/14/20 2256 11/15/20 0024 11/15/20 0305 BP: 116/78 106/72 BP Location: Patient Position: Pulse: 125 135 119 126 Resp: 24 18 18 Temp: 38 C (100.4 F) 37.9 C (100.3 F) 35.9 C (96.7 F) TempSrc: Oral Oral Oral SpO2: 99% 98% 96% 98% Weight: Height: Intake/Output Summary (Last 24 hours) at 11/15/2020 0639 Last data filed at 11/15/2020 0433 Gross per 24 hour Intake 3335.3 ml Output 4300 ml Net -964.7 ml Physical Exam General : patient is AAOX3, NAD, PEG tube placed HEENT: MMM, PERRLA Cardio : S1 S2 heard, no murmurs , gallops Lung : CTAB Abdomen : BS +, NTND Extremities: warm, non edematous Skin : clear LABS/IMAGING - reviewed CMV PCR : detected : not quantifiable from the : plasma, urine CNV PCR neg from yesterday IgG positive IgG neg urine Neg Cons on bcx on the 11/12 BCx on him today ASSESSMENT/PLAN Tahir Sanches Jr. is a 35 year old male admitted to the hospital with: Septic shock 2/2 candidemia fungemia (resolved) CMV viremia Late latent syphilis Sacral ulcer Sinus Tachycardia Patient remain tachycardic but BP now improving. Will c/w current management while we wait for the CMV PCR. -f/u sputum PCP -repeat BCx today - ganciclovir 225mg IV q12h - micafungin 100mg Q24H - 11/18 - c/w weekly PCN G - miralax daily -wound care :Dakin's 0.025% wet to dry twice daily. Zinc oxide barrier cream to partial thickness wounds of buttocks and scrotum twice daily and prn with nancy care. Achalasia s/p esophageal botox injection, PEG tube placement (10/27/2020) Positive AMA Refeeding syndrome Severe protein calorie malnutrition Will restart CLD per GI recs and reassess. - Mg, phos daily - replete vitamins due to malnutrition :c/w thiamine, B12, multivitamin, folic acid, vitamin D, Caldium carbonate - c/w tube feeds, Jevity, consider restarting fluids,f/u GI for the same. - dietary following -CLD today R lung atelectasis (improved) Multiple bilateral patchy opacities (improved) Patient satting well on RA. - O2 PP -Duoneb Q6H, vest therapy Bipolar disorder Schizophrenia Hx drug abuse (cocaine, amphetamines, marijuana) -c/w risperidone and hydroxyzine Thrombocytopenia, undetermined etiology Anemia, undetermined etiology (hematuria?) S/p blood transfusion 1 U PRBC 11/12/20. 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 is a 35 year old man with PMH of mood disorder,multiple hospital admissions during which he left A,polysubstance use disorder, achalasia s/p botox and PEG, noncompliance with dietary restrictions who presented 10/18/2020 after leaving AMA for continued evaluation of presumed achalasia. GIperformedEGD with manometry diagnosing achalasia. CTS consulted recommending balloon dilation of esophageal sphincter, GIperformed esophagealBotox injection and PEG tube placement. Multidisciplinary meeting held to establish patient support network and plan for outpatient follow up, however, patient developed refeeding syndrome treated with repletion of phosphorous(IV and Enteral)for multiple days. The patient's hospital course was complicated with proteus urosepsis, requiring pressor support and transfer to the MICU 10/28/2020. Patient was stabilized and transferred to the floor 11/01/2020, however, patient developed respiratory distress, rapid called, rapidly decompensated and was transferred back to MICU 11/02/2020 where he was immediately intubated. CT thorax showing bilateral effusions new from prior CT and findings consistent with ARDS and esophageal distension. GI consulted and recommended NGT placement into the esophagus and suction the fluid material and remove NGT afterwards.Patient extubated 11/08/2020, saturating well on RA.Course additionally complicatedby candidemia (lab draw 11/02/2020), CMV viremia (titers drawn 11/02/2020), and worsening sacral ulcer. Patient transferred to floor 11/10/2020 for further monitoring and care. Patient being managed for pain , malnutrition , candidemia and viremia on the floors. Current Facility-Administered Medications Medication Dose Route Frequency Last Rate Last Admin magnesium sulfate in water 2 gram/50 mL (4 %) infusion 2 g 2 g IV Piggyback ONCE gabapentin (NEURONTIN) capsule 300 mg 300 mg Oral TID 300 mg at 11/14/202102 HYDROcodone-acetaminophen (HYCET) 7.5-325 mg/15 mL solution 10 mg 10 mg Oral Q6HPRN 10 mg at 11/15/20 044 hydrOXYzine (ATARAX) 10 mg/5 mL solution 10 mg 10 mg Enteral Q6HPRN 10 mg at 11/10/20 193 Polyethylene Glycol 3350 (MIRALAX) powder 17 g 17 g Oral DAILY 17 g at 11/14/20 0943 ipratropium-albuteroL (DUONEB) 0.5 mg-3 mg(2.5 mg base)/3 mL nebulizer solution 3 mL 3 mL Inhalation Q6H ABX 3 mL at 11/15/20 0703 sodium chloride 7% (HYPER-MARKO) nebulizer solution 4 mL 4 mL Inhalation BID 4 mL at 11/15/20 0703 NaCl 0.9% (NS) injection 10 mL 10 mL Slow IV Push PRN potassium, sodium phosphates (PHOS-NAK) 280-160-250 mg packet 2 Packet 2 Packet Enteral TID 2Packet at 11/14/202102 ergocalciferol (vitamin D2) (CALCIDOL) 200 mcg/mL (8,000 unit/mL) oral drops 2,000 Units 2,000 Units Oral DAILY 2,000 Units at 11/14/20 0942 sodium hypochlorite 0.025% (Dakin's) solution Topical BIDPRN Applied at 11/15/20316 zinc oxide 20 % ointment Topical PRN Applied at 11/15/20316 ganciclovir (CYTOVENE) 225 mg in NaCl 0.9% (NS) 100 mL 225 mg IV Piggyback Q12H 225 mg at 11/14/202102 micafungin (MYCAMINE) 100 mg in NaCl 0.9% (NS) 100 mL MINI-BAG 100 mg IV Piggyback Q24H ABX 100 mg at 11/14/20 1350 nicotine (NICODERM) 7 mg/24 hr patch 1 Patch 1 Patch Topical [id number] Sliding Scale Insulin - Lispro (HumaLOG) + Fsbg Testing Subcutaneous Q4H Stopped at dextrose 50 % in water (D50W) injection 50 mL 50 mL Slow IV Push PRN 25 mL at 11/07/20 182 glucagon (GLUCAGEN DIAGNOSTIC KIT) injection 1 mg 1 mg Intramuscular PRN calcium carbonate 500 mg RINCON CA/5 mL 500 mg/5 mL (1,250 mg/5 mL) suspension 500 mg 500 mg Enteral BID MEALS 500 mg at 11/14/20 174 foLIC acid (FOLATE) tablet 1 mg 1 mg Enteral DAILY 1 mg at 11/14/20 0943 methocarbamol (ROBAXIN) 50 mg/mL oral suspension 1,000 mg 1,000 mg Enteral TID 1,000 mg at 11/14/202102 multivitamin (CENTRUM) solution 15 mL 15 mL Enteral DAILY 15 mL at 11/14/20 0942 vitamin B-12 (CYANOCOBALAMIN) tablet 1,000 mcg 1,000 mcg Enteral DAILY 1,000 mcg at 11/14/20 0943 HYDROcodone-acetaminophen (HYCET) 7.5-325 mg/15 mL solution 7.5 mg 7.5 mg Enteral Q6HPRN 7.5 mg at 11/14/20 174 risperiDONE (RISPERDAL M-TAB) disintegrating tablet 2 mg 2 mg Enteral BID 2 mg at 11/14/202102 thiamine (VITAMIN B1) tablet 100 mg 100 mg Enteral BID 100 mg at 11/14/202102 lidocaine (LIDODERM) 5 % (700 mg/patch) patch 1 Patch 1 Patch Topical DAILY 1 Patch at 11/14/20 0941 MAKER Associated attestation - Ramila Johnson MD - 11/16/2020 5:30 PM CSTI personally examined the patient on 11/16/[address] Osorio's resident note as written. I actively participated in the decision-making process. Please see the resident's note for additional details. Kenton Ventura MD - 11/14/2020 10:56 PM CST INFECTIOUS DISEASES F/U NOTE Interval history: Patient seen and examined, lying in bed not in any acute distress. Physical Examination: Vitals: 11/14/20 1901 11/14/20201711/14/20203711/14/20 2256 BP: 110/74 116/78 BP Location: Right arm Patient Position: Supine Pulse: 123 133 125 135 Resp: 17 24 24 18 Temp: 37.3 C (99.2 F) 38 C (100.4 F) TempSrc: Axillary Oral SpO2: 98% 97% 99% 98% Weight: Height: General: Patient is emaciated Lungs: No wheezing, GI: abdomen soft; non-tender; non-distended; Extremities: no edema Neuro: Weak but able to move all extremities. Skin: No cyanosis Laboratory: Reviewed. Microbiology: Bcx 11/05/20: negative. Blood cultures done on 11/02/2020 growing Zari albicans and Zari glabrata Sputum 11/03/2020: Zari tropicalis Urine culture 10/31/2020 growing Proteus 10/31/2020 blood cultures negative 10/17/2020 CSF cultures negative CSF VDRL negative, glucose 46, protein 127, 1 WBC. HIV test negative. Hepatitis B and hepatitis C negative. Radiology: Chest x-ray 11/02/2020 reviewed, CT of the thorax ordered on 11/03/[address] chest abdomen pelvis done on 10/31/2020 with contrast: Bilateral [id number] pleural effusions Bilateral patchy groundglass opacities most prominent in the right upper lobe Partially visualized exophytic sclerotic lesion in the left humerus may represent osteochondroma Distended esophagus, consistent with history of achalasia Ascites, anasarca right hemiscrotum moderate to large hydrocele. Assessment: 35-year-old male with history of achalasia, recreational drug use, ID consulted for elevated CMV titers and positive blood cultures for Zari #CMV titers noted to be 359 on 10/13/21 and 23,001 11/02/2020. As patient is malnourished with BMI of 16 would qualify him for being immunocompromised. Recommend ganciclovir to 225 mg IV twice daily.Monitor CBC while on the same. F/u PCP from the sputum. (unlikely as has low oxygen requirements.) #s/p 5 days of antibiotics for Proteus in the urine. #Positive blood culture for zari albicans and glabrata likely from old lines(removed). Opthalmic exam unremarkable. TTE showing thickened aortic valve. #severe malnutrition #achalasia, s/p peg tube. Recommendations: -continue ganciclovir(11/05--), f/u CMV titres from 11/12/20 -f/u sputum for PCP. -Continue micafungin for fungemia(11/02/20), 2 weeks course as secondary to peripheral IV line that was removed. EOT (11/18/20) -wound care consult, offloading for decubitus ulcer. Close attention to aggressive wound care Thank you for the consult. Case was discussed with attending physician. Kenton Ventura PGY4, ID MAKER Associated attestation - Arline Locke MD - 11/15/2020 5:02 PM SODA MAKER I personally saw and evaluated the patient on this day and agree with the findings as documented by the house registry rn. We discussed the assessments and management plan and I agree with the house registry rn's documentation as written .Dixie Smith RN - 11/14/2020 2:30 PM CSTCM spoke to patient at bedside regarding discharge planning. Patient said he will be discharging home with his mother- Shantel Sanches [phone]. CM informed patient of recommended DME needs, wound careneeds and feeds upon discharge. PAP has been resent and awaiting approval. CM let patient know upon discharge he will need to follow up with feeds PAP (cm to provide original application) and the hospital will send him home with feeds to start him off with. CM then called patient's mother- Shantel Sanches ph: [phone] to confirm. Shantel said she and her will be taking in their son. CM explained discharge needs- DME (deisy lift, hospital bed with lowair mattress, wheelchair), feeds through patient's PEG tube, continuation of PT/OT exercises at home, and wound care. Shantel said she has a wheelchair at home but is unable to afford the other equipment.She stated she is on a fixed income and can not contribute any amount. CM will look into charitable DME options- ([employer] contacted then [employer]). Shantel was inquiring about when patient will be receiving medicaid. CM replied that it generally takes 6 months at minimum to hear an answer and indigent hea lt care application should be pursued. Shantel said application is almost complete and she will be submitting it soon. CM stressed the importance of the IHC application and it generally takes around 2-3 weeks for acceptance. CM spoke to Shantel about feeds through the PEG tube and how PAP has been submitted and they will need to follow up upon discharge, but they will be given a supply of feeds to go homewith in the mean time. CM also discussed wound care and the importance of education. CM let Shantel know that we will send patient home with wound care supplies to start out with. CM stressed the importance of coming to visit for bedside education on PT/OT, wound care and generalcare of her son. Shantel said she will be coming up more often to start to learn. Dixie Smith RN (Allie)-BSN Director Global Development [facility] Care Management Office: [phone] [email or web address] MAKER Shlya Issa, [facility] - 11/14/2020 1:11 PM SODA MAKER Physical Therapy Progress Note: Discharge Recommendations: Therapy Needs and Potential: Patient would benefit from continued physical therapy services to address: decline in bed mobility decline in transfers decline in gait and/or balance decreased strength decreased endurance decreased coordination Patient appears motivated to improve their functional mobility and return to their previous levelof function. Patient exhibits limited activity tolerance. Challenges to Home Transition: increased risk of falls decreased safety awareness Equipment recommendations: wheelchair, hospital bed and mechanical lift PAIN: -Pain Description: constant -Pain Location: "all over" -Pain rating before treatment: 3, After treatment: 5 PRECAUTIONS: Weight Bearing Precaution: WBAT General Precautions: PPE used:Gloves and Surgical mask, General, Fall, Lines/Tubes, Baltazar catheter, IV RUE Bracing/Cast present or required:N/A S: Patient agreeable to working with PT. O: Patient met Supine. Patient seen for the following: Bed mobility: Rolling: Dependent educated on proper hand and foot placement to attempt to assist in bed mobility. Patient unable to assist with bed mobility at this time. Transfers: unable at this time Gait: Unable at this time. Therapeutic exercise: patient educated in BLE ther ex in supine all available planes 1 x 20 aarom with rest breaks.. educated in frequency and execution of HEP with therapist and when he is alone to tolerance. Patient states that he understands all education. Patient had complaints of pain before and after HEP performed in supine in bed. Patient declined sitting eob due to complaints of pain "all over" after HEP completed 03/02. RN notified. After session, patient Supine and call gandara provided. A: Patient tolerated session fair. Patient not progressing as expected as evidenced by limited ability to participate due to pain and fatigue. Max education on importance of participation with therapy to increase strenght and mobility. . Continues to present with the following deficits: Decline in bed mobility, Decline in transfers, Decreased strength, Decreased endurance, Decreased balance, ROM deficits, Safety awareness deficits and Pain. P: PT will - progress per patient tolerance. . Total Timed Tx Codes in Minutes: 30 Min Total Treatment Time in Minutes: 30 Min Syhla Issa PTA Supervising Therapist Merritt Parr PT MAKER Tiffany Huggins MD - 11/14/2020 7:41 AM CST [facility] Progress Note Date of Service: 11/14/2020 07:41 24-HOUR EVENTS: CONS grew on 1 out of 2 BCx SUBJECTIVE: Patient without complaints, states he is hungry. PHYSICAL EXAM: Vitals: 11/14/20 0008 11/14/20 0117 11/14/20 0347 11/14/20 0722 BP: 116/84 (!) 136/98 (!) 125/92 (!) 132/96 BP Location: Right arm Right arm Patient Position: Supine Sitting Pulse: 108 129 109 122 Resp: 16 18 17 17 Temp: 36 C (96.8 F) 36.6 C (97.8 F) 36.4 C (97.5 F) TempSrc: Oral Oral Oral SpO2: 100% 100% 98% 99% Weight: Height: Intake/Output Summary (Last 24 hours) at 11/14/2020 0741 Last data filed at 11/14/2020 0608 Gross per 24 hour Intake Output 5700 ml Net -5700 ml Physical Exam General : patient is AAOX3, NAD, PEG tube placed HEENT: MMM, PERRLA Cardio : S1 S2 heard, no murmurs , gallops Lung : CTAB Abdomen : BS +, NTND Extremities: warm, non edematous Skin : clear LABS/IMAGING - reviewed ASSESSMENT/PLAN Tahir Sanches Jr. is a 35 year old male admitted to the hospital with: Septic shock 2/2 candidemia fungemia (resolved) CMV viremia Late latent syphilis Sacral ulcer Sinus Tachycardia Patient remain tachycardic but BP now improving. Will c/w current management while we wait for the CMV PCR. -repeat BCx -f/u CMV IgG/IgM and urine CMV PCR - ganciclovir 225mg IV q12h - micafungin 100mg Q24H - c/w weekly PCN G - miralax daily -wound care :Dakin's 0.025% wet to dry twice daily. Zinc oxide barrier cream to partial thickness wounds of buttocks and scrotum twice daily and prn with nancy care. Achalasia s/p esophageal botox injection, PEG tube placement (10/27/2020) Positive AMA Refeeding syndrome Severe protein calorie malnutrition Will restart CLD per GI recs and reassess. - Mg, phos daily - replete vitamins due to malnutrition :c/w thiamine, B12, multivitamin, folic acid, vitamin D, Caldium carbonate - c/w tube feeds, Jevity, consider restarting fluids,f/u GI for the same. - dietary following -CLD today R lung atelectasis (improved) Multiple bilateral patchy opacities (improved) Patient satting well on RA. - O2 PP -Duoneb Q6H, vest therapy Bipolar disorder Schizophrenia Hx drug abuse (cocaine, amphetamines, marijuana) -c/w risperidone and hydroxyzine Thrombocytopenia, undetermined etiology Anemia, undetermined etiology (hematuria?) S/p blood transfusion 1 U PRBC 11/12/20. 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 is a 35 year old man with PMH of mood disorder,multiple hospital admissions during which he left AMA,polysubstance use disorder, achalasia s/p botox and PEG, noncompliance with dietary restrictions who presented 10/18/2020 after leaving AMA for continued evaluation of presumed achalasia. GIperformedEGD with manometry diagnosing achalasia. CTS consulted recommending balloon dilation of esophageal sphincter, GIperformed esophagealBotox injection and PEG tube placement. Multidisciplinary meeting held to establish patient support network and plan for outpatient follow up, however, patient developed refeeding syndrome treated with repletion of phosphorous(IV and Enteral)for multiple days. The patient's hospital course was complicated with proteus urosepsis, requiring pressor support and transfer to the MICU 10/28/2020. Patient was stabilized and transferred to the floor 11/01/2020, however, patient developed respiratory distress, rapid called, rapidly decompensated and was transferred back to MICU 11/02/2020 where he was immediately intubated. CT thorax showing bilateral effusions new from prior CT and findings consistent with ARDS and esophageal distension. GI consulted and recommended NGT placement into the esophagus and suction the fluid material and remove NGT afterwards.Patient extubated 11/08/2020, saturating well on RA.Course additionally complicatedby candidemia (lab draw 11/02/2020), CMV viremia (titers drawn 11/02/2020), and worsening sacral ulcer. Patient transferred to floor 11/10/2020 for further monitoring and care. Patient being managed for pain , malnutrition , candidemia and viremia on the floors. MAKER Associated attestation - Erwin Pena MD - 11/14/2020 1:21 PM CSTI personally examined the patient on 11/14/[address] Voss's resident note as written. I actively participated in the decision-making process. Please see the resident's note for additional details. Pt remains afebrile and HDS, mentating well. Planning on trial of clear liquids today. Aj Osorio MBBS - 11/13/2020 9:24 PM CST [facility] Progress Note Date of Service: 11/13/2020 21:24 24-HOUR EVENTS: Patient tachycardic in the 150s overnight, pulled out his peripheral IV and IJ. SUBJECTIVE: Patient was complaining of severe pain all over his body in the AM.Does not complain of any N/V/chills or fever. Is very upset over being offered food when he cannot eat PHYSICAL EXAM: Vitals: 11/13/20 1340 11/13/20 1521 11/13/20 1905 11/13/20 1912 BP: 118/87 BP Location: Patient Position: Pulse: 97 114 111 103 Resp: 18 18 18 18 Temp: 36.1 C (97 F) TempSrc: Oral SpO2: 99% 100% 97% 97% Weight: Height: Intake/Output Summary (Last 24 hours) at 11/13/20204 Last data filed at 11/13/2020 1814 Gross per 24 hour Intake Output 4350 ml Net -4350 ml Pain :10/10 Scale:Numerical Physical Exam General : patient is AAOX3, NAD, PEG tube placed HEENT: MMM, PERRLA Cardio : S1 S2 heard, no murmurs , gallops Lung : CTAB Abdomen : BS +, NTND Extremities: warm, non edematous Skin : clear LABS/IMAGING - reviewed, pertinent results as below: ASSESSMENT/PLAN Tahir Sanches is a 35 year old male admitted to the hospital with: Achalasia s/p esophageal botox injection, PEG tube placement (10/27/2020) Positive AMA Refeeding syndrome Severe protein calorie malnutrition Patient with third spacing due to low albumin. Continuing to receive feeds via G tube. - Mg, phos daily - not considering albumin at present. - replete vitamins due to malnutrition :c/w thiamine, B12, multivitamin, folic acid, vitamin D, Caldium carbonate - c/w tube feeds, Jevity, consider restarting fluids,f/u GI for the same. - dietary following R lung atelectasis (improved) Multiple bilateral patchy opacities (improved) Patient satting well on RA. - O2 PP -hypersal BID; duoneb Q6H, vest therapy Septic shock 2/2 candidemia fungemia CMV viremia Late latent syphilis Sacral ulcer Sinus Tachycardia Tachycardic into the 140s when in pain 2/2 sacral ulcer. 1/2 culture tips have resulted with zari. C/w antifungal.On antiviral for possible CMV pneumonitis. ID on board. - f/u -f/u CMV IgG/IgM and urine CMV PCR - ganciclovir 225mg IV q12h - micafungin 100mg Q24H - follow-up PCP sputum - c/w weekly PCN G - miralax daily -wound care :Dakin's 0.025% wet to dry twice daily. Zinc oxide barrier cream to partial thickness wounds of buttocks and scrotum twice daily and prn with nancy care. Bipolar disorder Schizophrenia Hx drug abuse (cocaine, amphetamines, marijuana) -c/w risperidone and hydroxyzine Thrombocytopenia, undetermined etiology Anemia, undetermined etiology (hematuria?) S/p blood transfusion 1 U PRBC 11/12/20. 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 First year neurology resident [facility] ID: [id number] END OF DAILY PROGRESS NOTE HOSPITAL COURSE Tahir Eric Sanches Jr. is a 35 year old man with PMH of mood disorder,multiple hospital admissions during which he left AMA,polysubstance use disorder, achalasia s/p botox and PEG, noncompliance with dietary restrictions who presented 10/18/2020 after leaving AMA for continued evaluation of presumed achalasia. GIperformedEGD with manometry diagnosing achalasia. CTS consulted recommending balloon dilation of esophageal sphincter, GIperformed esophagealBotox injection and PEG tube placement. Multidisciplinary meeting held to establish patient support network and plan for outpatient follow up, however, patient developed refeeding syndrome treated with repletion of phosphorous(IV and Enteral)for multiple days. The patient's hospital course was complicated with proteus urosepsis, requiring pressor support and transfer to the MICU 10/28/2020. Patient was stabilized and transferred to the floor 11/01/2020, however, patient developed respiratory distress, rapid called, rapidly decompensated and was transferred back to MICU 11/02/2020 where he was immediately intubated. CT thorax showing bilateral effusions new from prior CT and findings consistent with ARDS and esophageal distension. GI consulted and recommended NGT placement into the esophagus and suction the fluid material and remove NGT afterwards.Patient extubated 11/08/2020, saturating well on RA.Course additionally complicatedby candidemia (lab draw 11/02/2020), CMV viremia (titers drawn 11/02/2020), and worsening sacral ulcer. Patient transferred to floor 11/10/2020 for further monitoring and care. Patient being managed for pain , malnutrition , candidemia and viremia on the floors. CURRENT MEDICATIONS - reviewed. Current Facility-Administered Medications Medication Dose Route Frequency Last Rate Last Admin gabapentin (NEURONTIN) capsule 300 mg 300 mg Oral TID 300 mg at 11/13/202058 HYDROcodone-acetaminophen (HYCET) 7.5-325 mg/15 mL solution 10 mg 10 mg Oral Q6HPRN 10 mg at 11/12/20 0851 D5W 0.45% NaCl (1/2NS) IV infusion 1,000 mL 1,000 mL IV Infusion CONTINUOUS 150 mL/hr at 11/13/20 1809 1,000 mL at 11/13/20 180 hydrOXYzine (ATARAX) 10 mg/5 mL solution 10 mg 10 mg Enteral Q6HPRN 10 mg at 11/10/20 1935 Polyethylene Glycol 3350 (MIRALAX) powder 17 g 17 g Oral DAILY 17 g at 11/13/20 0748 ipratropium-albuteroL (DUONEB) 0.5 mg-3 mg(2.5 mg base)/3 mL nebulizer solution 3 mL 3 mL Inhalation Q6H ABX 3 mL at 11/13/20 190 sodium chloride 7% (HYPER-MARKO) nebulizer solution 4 mL 4 mL Inhalation BID 4 mL at 11/13/20 190 NaCl 0.9% (NS) injection 10 mL 10 mL Slow IV Push PRN potassium, sodium phosphates (PHOS-NAK) 280-160-250 mg packet 2 Packet 2 Packet Enteral TID 2Packet at 11/13/202099 ergocalciferol (vitamin D2) (CALCIDOL) 200 mcg/mL (8,000 unit/mL) oral drops 2,000 Units 2,000 Units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 blood cultures negative 10/17/2020 CSF cultures negative CSF VDRL negative, glucose 46, protein 127, 1 WBC. HIV test negative. Hepatitis B and hepatitis C negative. Radiology: Chest x-ray 11/02/2020 reviewed, CT of the thorax ordered on 11/03/[address] chest abdomen pelvis done on 10/31/2020 with contrast: Bilateral mkhuq-[id number]-pbtnaztz pleural effusions Bilateral patchy groundglass opacities most prominent in the right upper lobe Partially visualized exophytic sclerotic lesion in the left humerus may represent osteochondroma Distended esophagus, consistent with history of achalasia Ascites, anasarca right hemiscrotum moderate to large hydrocele. Assessment: 35-year-old male with history of achalasia, recreational drug use, ID consulted for elevated CMV titers and positive blood cultures for Zari #CMV titers noted to be 359 on 10/13/21 and 23,001 11/02/2020. As patient is malnourished with BMI of 16 would qualify him for being immunocompromised. Recommend ganciclovir to 225 mg IV twice daily.Monitor CBC while on the same. F/u PCP from the sputum. (unlikely as has low oxygen requirements.) #s/p 5 days of antibiotics for Proteus in the urine. #Positive blood culture for zari albicans and glabrata likely from old lines(removed). Opthalmic exam unremarkable. TTE showing thickened aortic valve. #severe malnutrition #achalasia, s/p peg tube. Recommendations: -continue ganciclovir(11/05--), repeat CMV titres on 11/12/20 -f/u sputum for PCP, repeat bcx. -Continue micafungin for fungemia, 2 weeks course as secondary to peripheral IV line that was removed. EOT (11/18/20) -wound care consult, offloading for decubitus ulcer. Close attention to aggressive wound care Thank you for the consult. Case was discussed with attending physician. Kenton Ventura PGY4, ID MAKER Associated attestation - Arline Locke MD - 11/15/2020 5:01 PM SODA MAKER I personally saw and evaluated the patient on this day and agree with the findings as documented by the house registry rn. We discussed the assessments and management plan and I agree with the house registry rn's documentation as written .Jocelin Dixon, UYEN - 11/11/2020 4:32 PM CSTPatient Surveillance Sensor Operator Note: PRS and patient's mother/MPOA completed the Casebook and [facility] application via phone. PRS emailed Mrs. Sanches a list of the documents that will need to be gathered and submitted with each application. Mr. Sanches was able to sign some of the paperwork but started feeling poorly so there are some additional signatures needed for the [facility] application. PRS left applications in a purple folder with Mr. Sanches's belongings. His mother/MPOA is aware of the folder and will apple picker when she next comes to visit Mr. Sanches. Will provide additional assistance as needed. Jocelin Dixon M.Ed., SUMMER Patient Surveillance Sensor Operator [facility] [phone] MAKER Tiffany Huggins MD - 11/11/2020 3:07 PM CST Eben Team Progress Note Date of Service: 11/11/2020 17:15 CC: Achalasia, fungemia, viremia 24-HOUR EVENTS: NEON SUBJECTIVE: Patients only complaint is that he wants to eat and some back pain. 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 is a 35 year old male with PMH as listed above, admitted to the hospital with: Achalasia s/p esophageal botox injection, PEG tube placement (10/27/2020) Concern for PBC Elevated transaminases (stable) Elevated alkaline phosphatase (improving) Positive AMA Refeeding syndrome Severe protein calorie malnutrition Patient with third spacing due to low albumin. Continuing to receive feeds via G tube. - BMP, Mg, Phos daily - consider albumin and lasix for fluid shift - c/w thiamine, B12, multivitamin, folic acid, vitamin D, Caldium carbonate - c/w tube feeds, Jevity - dietary following Acute hypoxic and hypercapnic respiratory failure requiring mechanical ventilation 2/2 aspiration c/b ARDS Elevated D dimer Bilateral mild to moderate pleural effusions (imroved) R lung atelectasis (improved) Multiple bilateral patchy opacities (improved) ?Shift on CXR with severely dilated esophagus Patient satting well on RA. - O2 PP -hypersal BID; duoneb Q6H, vest therapy Septic shock 2/2 candidemia fungemia CMV viremia Late latent syphilis Sacral ulcer Sinus Tachycardia Tachycardic into the 140s when in pain 2/2 sacral ulcer. 1/2 culture tips have resulted with zari. C/w antifungal. On antiviral for possible CMV pneumonitis. ID on board. - ganciclovir 225mg IV q12h - micafungin 100mg Q24H - follow-up PCP sputum - c/w weekly PCN G - f/u cultures - ID following - c/w hycet for pain - miralax daily -Dakin's 0.025% wet to dry twice daily. Zinc oxide barrier cream to partial thickness wounds of buttocks and scrotum twice daily and prn with nancy care. Nephrotic range proteinuria Hematuria Proteus UTI Patient appears swollen on physical exam, but with blood pressures ranging in the 80s-100s systolic,will need to hold diuretics right now. - monitor for hematuria - albumin 25 g, consider redosing Bipolar disorder Schizophrenia Hx drug abuse (cocaine, amphetamines, marijuana) -c/w risperidone and hydroxyzine Thrombocytopenia, undetermined etiology Anemia, undetermined etiology (hematuria?) S/p blood transfusion 1 U PRBC 11/09/2020. DVT prophylaxis:contraindicated 2/2 thrombocytopenia - HH Severe ESPINOZA (Dry eye syndrome) OU (both eyes) Lagophthalmos 2/2 unconscious, incomplete closure of palpebral fissure Erythromycin for when patient was intubated. Will stop for and assess. -stop erythromycin ointment -monitor for dry eye Hx of Tobacco Abuse -c/w nicotine patch PRN PAIN: Improved hycet Prophylaxis: DVT- Contraindicated: Thrombocytopenia Stress Ulcer: not indicated Code Status: addressed: FULL Bowel Regimen: miralax MD Pool Hairels Team, PGY2 END OF DAILY PROGRESS NOTE CURRENT MEDICATIONS - reviewed. Hospital Course: Tahir Sanches Jr. is a 35 year old man with PMH of mood disorder,multiple hospital admissions during which he left AMA,polysubstance use disorder, achalasia s/p botox and PEG, noncompliance with dietary restrictions who presented 10/18/2020 after leaving AMA for continued evaluation of presumed achalasia. GIperformedEGD with manometry diagnosing achalasia. CTS consulted recommending balloon dilation of esophageal sphincter, GIperformed esophagealBotox injection and PEG tube placement. Multidisciplinary meeting held to establish patient support network and plan for outpatient follow up, however, patient developed refeeding syndrome treated with repletion of phosphorous(IV and Enteral)for multiple days. The patient's hospital course was complicated with proteus urosepsis, requiring pressor support and transfer to the MICU 10/28/2020. Patient was stabilized and transferred to the floor 11/01/2020, however, patient developed respiratory distress, rapid called, rapidly decompensated and was transferred back to MICU 11/02/2020 where he was immediately intubated. CT thorax showing bilateral effusions new from prior CT and findings consistent with ARDS and esophageal distension. GI consulted and recommended NGT placement into the esophagus and suction the fluid material and remove NGT afterwards.Patient extubated 11/08/2020, saturating well on RA.Course additionally complicatedby candidemia (lab draw 11/02/2020), CMV viremia (titers drawn 11/02/2020), and worsening sacral ulcer. Patient transferred to floor 11/10/2020 for further monitoring and care. MAKER Associated attestation - Erwin Pena MD - 11/12/2020 12:41 PM CSTI personally examined the patient on 11/11/[address] Voss's resident note as written. I actively participated in the decision-making process. Please see the resident's note for additional details. Tahir Sanches Jr. is a 35 year old male with multiple medical problems including polysubstance abuse and achalasia s/p botox injection and PEG who was transferred to MICU for septicshock and acute hypoxemic respiratory failure. Pt required pressors and intubation. Clinical picturelooked like ARDS and patient required NGT in esophagus to suction contents. Pt developed fungemia and currently on Micafungin. Pt eventually weaned off pressors, extubated, and now completely weaned off NC. He is currently afebrile and HDS with intermittent tachycardia. Plan on continuing Tf's, Micafungin, and Ganciclovir. Kenya Omalley - 11/11/2020 2:38 PM CSTSocial Work Note 11/11/2020 [address] returned call from [employer] Nutrition Assistance program and spoke with Gisel who stated patient was denied due to not meeting criteria: 100% of patient caloric needs need to be dependant upon feeds. CC notified. 1438 SW attempted to reach [employer] program to confirm receipt and approval for PAP. No answer, was directed to . LM w/ CC Mary Kate Smith contact info requesting call back. Kenya Omalley [facility] Care Management P [phone] E [email or web address] Dixie Valdes RN - 11/11/2020 2:15 PM CSTCM called [employer] for enteral nutrition ph: [phone] to inquire of application status. After 15 minute wait time it directed CM to . CM left voicemail. CM to follow up. Dixie "Angely Smith RN-BSN Director Global Development [facility] Care Management Office: [phone] [email or web address] Dariel Krause DO - 11/10/2020 10:00 PM CSTBrief Progress Note: Informed by nursing that patient right pupil was slightly dilated compared to left. Evaluated patient. Right pupil slightly more dilated than left (~2mm). Eyes reacted to light, cranial nerves otherwise appear to be intact. Sensation intact. Patient diffusely weak but symmetrical. Orientation level impaired but stable from prior. Dilation may be physiological and not documented may have been affectedby breathing treatment (in which case could take a few over a day to resolve). Will continue to monitor as otherwise no focal neurological deficits. Dariel Horne DO Internal Medicine PGY-2 Eben Team ariel Horne DO - 11/10/2020 7:28 PM CST Eben Team Progress/Acceptance Note Date of Service: 11/10/2020 19:28 CC: Achalasia, fungemia, viremia 24-HOUR EVENTS: -Transferred from MICU to floor Hospital Course: Tahir Sanches Jr. is a 35 year old man with PMH of mood disorder,multiple hospital admissions during which he left AMA,polysubstance use disorder, achalasia s/p botox and PEG, noncompliance with dietary restrictions who presented 10/18/2020 after leaving AMA for continued evaluation of presumed achalasia. GIperformedEGD with manometry diagnosing achalasia. CTS consulted recommending balloon dilation of esophageal sphincter, GIperformed esophagealBotox injection and PEG tube placement. Multidisciplinary meeting held to establish patient support network and plan for outpatient follow up, however, patient developed refeeding syndrome treated with repletion of phosphorous(IV and Enteral)for multiple days. The patient's hospital course was complicated with proteus urosepsis, requiring pressor support and transfer to the MICU 10/28/2020. Patient was stabilized and transferred to the floor 11/01/2020, however, patient developed respiratory distress, rapid called, rapidly decompensated and was transferred back to MICU 11/02/2020 where he was immediately intubated. CT thorax showing bilateral effusions new from prior CT and findings consistent with ARDS and esophageal distension. GI consulted and recommended NGT placement into the esophagus and suction the fluid material and remove NGT afterwards.Patient extubated 11/08/2020, saturating well on RA.Course additionally complicatedby candidemia (lab draw 11/02/2020), CMV viremia (titers drawn 11/02/2020), and worsening sacral ulcer. Patient transferred to floor 11/10/2020 for further monitoring and care. SUBJECTIVE: Patient endorses pain on backside and slight shortness of breath. Denies fevers, chills, nausea, vomiting, constipation, abdominal pain. PHYSICAL EXAM: Vitals: 11/10/20 1500 11/10/20 1600 11/10/20 1700 11/10/20 1800 BP: (!) 110/94 110/88 105/84 (!) 113/91 Pulse: 128 103 106 116 Resp: Temp: 37.2 C (99 F) 37.5 C (99.5 F) 37.7 C (99.9 F) 37.3 C (99.1 F) TempSrc: Bladder Bladder Bladder Bladder SpO2: 100% 95% 100% 100% Weight: Height: General: Alert in no acute distress, cachectic, weak voice Cardio: sinus tachy Lungs: Decreased breath sounds on right side, breathing on NC GI: Nondistended, nontender Extremities: left upper extremity slightly more swollen than right Neuro: Oriented to self and situation, (wrong: 2011, place [place]), examining chair assembler strength symmetrical, moves bilateral upper and lower extremities spontaneously, diffuse weakness LABS/IMAGING - reviewed ASSESSMENT/PLAN Tahir Reyes Ancelmo Frye is a 35 year old male with PMH as listed above, admitted to the hospital with: Achalasia s/p esophageal botox injection, PEG tube placement (10/27/2020) Concern for PBC Elevated transaminases (stable) Elevated alkaline phosphatase (improving) Positive AMA Refeeding syndrome Severe protein calorie malnutrition Patient with third spacing due to low albumin. Continuing to receive feeds via G tube. - BMP, Mg, Phos daily - consider albumin and lasix for fluid shift - c/w thiamine, B12, multivitamin, folic acid, vitamin D, Caldium carbonate - c/w tube feeds, Jevity - dietary following Acute hypoxic and hypercapnic respiratory failure requiring mechanical ventilation 2/2 aspiration c/b ARDS Elevated D dimer Bilateral mild to moderate pleural effusions (imroved) R lung atelectasis (improved) Multiple bilateral patchy opacities (improved) ?Shift on CXR with severely dilated esophagus Patient satting well on RA. - O2 PP -hypersal BID; duoneb Q6H, vest therapy Septic shock 2/2 candidemia fungemia CMV viremia Late latent syphilis Sacral ulcer Sinus Tachycardia Tachycardic into the 140s when in pain 2/2 sacral ulcer. 1/2 culture tips have resulted with zari. C/w antifungal. On antiviral for possible CMV pneumonitis. ID on board. - ganciclovir 225mg IV q12h - micafungin 100mg Q24H - follow-up PCP sputum - c/w weekly PCN G - f/u cultures - ID following - c/w hycet for pain - miralax daily -Dakin's 0.025% wet to dry twice daily. Zinc oxide barrier cream to partial thickness wounds of buttocks and scrotum twice daily and prn with anncy care. Nephrotic range proteinuria Hematuria Proteus UTI Patient appears swollen on physical exam, but with blood pressures ranging in the 80s-100s systolic,will need to hold diuretics right now. - monitor for hematuria - albumin 25 g, consider redosing Bipolar disorder Schizophrenia Hx drug abuse (cocaine, amphetamines, marijuana) -c/w risperidone and hydroxyzine Thrombocytopenia, undetermined etiology Anemia, undetermined etiology (hematuria?) S/p blood transfusion 1 U PRBC 11/09/2020. DVT prophylaxis:contraindicated 2/2 thrombocytopenia - HH Severe ESPINOZA (Dry eye syndrome) OU (both eyes) Lagophthalmos 2/2 unconscious, incomplete closure of palpebral fissure Erythromycin for when patient was intubated. Will stop for and assess. -stop erythromycin ointment -monitor for dry eye Hx of Tobacco Abuse -c/w nicotine patch PRN PAIN: Improved hycet Prophylaxis: DVT- Contraindicated: Thrombocytopenia Stress Ulcer: not indicated Code Status: addressed: FULL Bowel Regimen: miralax Dariel Horne DO Internal Medicine PGY-2 Eben Team END OF DAILY PROGRESS NOTE CURRENT MEDICATIONS - reviewed. MAKER Associated attestation - Erwin Pena MD - 11/11/2020 8:25 AM CSTResident only transfer accept Dariel Ricks MD - 11/10/2020 5:08 PM SODA MAKER INFECTIOUS DISEASES F/U NOTE Interval history: Pending TTF, remains on room air. Zari glabrata with high/borderline TIM for fluconazole. Bedside nurse reports bloody and questionably purulent drainage from sacral ulcer. No acute events overnight. Physical Examination: Vitals: 11/10/20 1400 11/10/20 1442 11/10/20 1452 11/10/20 1500 BP: (!) 110/98 (!) 110/94 Pulse: 124 124 122 128 Resp: Temp: 36.9 C (98.4 F) 37.2 C (99 F) TempSrc: Bladder Bladder SpO2: 100% 100% 100% 100% Weight: Height: General: Patient is on room. Patient is emaciated Lungs: No wheezing, chest exp symm GI: abdomen soft; non-tender; non-distended Back: Unstageable decubitus ulcer with some bleeding Extremities: +EDEMA the Skin: No cyanosis Laboratory: Reviewed Microbiology: Bcx 11/05/20: negative. Blood cultures done on 11/02/2020 growing Zari albicans and Zari glabrata Sputum 11/03/2020: Zari tropicalis Urine culture 10/31/2020 growing Proteus 10/31/2020 blood cultures negative 10/17/2020 CSF cultures negative CSF VDRL negative, glucose 46, protein 127, 1 WBC. HIV test negative. Hepatitis B and hepatitis C negative. Radiology: Chest x-ray 11/02/2020 reviewed, CT of the thorax ordered on 11/03/[address] chest abdomen pelvis done on 10/31/2020 with contrast: Bilateral zehqe-wp-nevkmiyn pleural effusions Bilateral patchy groundglass opacities most prominent in the right upper lobe Partially visualized exophytic sclerotic lesion in the left humerus may represent osteochondroma Distended esophagus, consistent with history of achalasia Ascites, anasarca right hemiscrotum moderate to large hydrocele. Assessment: 35-year-old male with history of achalasia, recreational drug use, ID consulted for elevated CMV titers and positive blood cultures for Zari #CMV titers noted to be 359 on 10/13/21 and 23,001 11/02/2020. As patient is malnourished with BMI of 16 would qualify him for being immunocompromised. Recommend ganciclovir to 225 mg IV twice daily.Monitor CBC while on the same. F/u PCP from the sputum. (unlikely as on low fio2) #s/p 5 days of antibiotics for Proteus in the urine. #Positive blood culture for zari albicans and glabrata likely from old lines(removed). Opthalmic exam unremarkable. TTE showing thickened aortic valve. #severe malnutrition #achalasia, s/p peg tube. Recommendations: -continue ganciclovir(11/05--), repeat CMV titres on 11/12/20 -f/u sputum for PCP, repeat bcx. -Continue micafungin for fungemia (11/04/20--) -wound care and plastic surgery consult consult, offloading for decubitus ulcer. Close attention toaggressive wound care. Should patient's clinical status worsen, would consider contribution from worsening decubitus ulcer. Thank you for the consult. Case was discussed with attending physician. Prince Salazar MD Infectious Diseases Fellow - PGY-4 MAKER Associated attestation - Zachary Gu MD - 11/11/2020 5:05 AM CSTI personally examined the patient on 11/10/[address] Salazar's note as written. I actively participated in the decision-making process. Please see the fellow's note for additional details.Kristi Tinajero MD - 11/10/2020 4:42 PM SODA MAKER Brief MICU Note/Transfer Note Date: 11/10/2020 16:49 ICU day: 9 Intubation Day: extubated Code Status: Full Hospital Course: Tahir Sanches Jr. is a 35 year old man with PMH of mood disorder,multiple hospital admissions during which he left [place],polysubstance use disorder, achalasia s/p botox and PEG, noncompliance with dietary restrictions who pesented after leaving [place] for continued evaluation of presumed achalasia. GIperformedEGD with manometry diagnosing achalasia. CTS consulted recommending balloon dilation of esophageal sphincter, GIperformed esophagealBotox injection and PEG tube placement. Multidisciplinary meeting held to establish patient support network and plan for outpatient follow up, however, patient developed refeeding syndrome treated with repletion of phosphorous(IV and Enteral)formultiple days. The patient's hospital course was complicated with urosepsis, requiring pressor support and transfer to the MICU. Patient was stabilized and transferred to the floor, however, patient dev eloped respiratory distress, rapid called, rapidly decompensated and was transferred back to MICU where he was immediately intubated. CT thorax showing bilateral effusions new from prior CT and findings consistent with ARDS and esophageal distension. GI consulted and recommended NGT placement into the esophagus and suction the fluid material and remove NGT afterwards.Patient extubated after 7 days on ventilator, saturating well on RA. 12 Hour Events (should include: major events throughout the day, patient status, significant labs, radiology, consult updates): - Patient had sinus tachycardia to 170s. Patient was given Metoprolol 10mg IV with return of HR to 100s. -1x lasix 40mg Plan for next 12 hours (should include: anticipated events, complications to watch for, pending labs/radiology/consults): - TTF - Plan Midline for Tuesday/Tuesday - c/w micafungin (11/04 - ) - c/w ganciclovir (11/05 - ) at least 2 wks for possible CMV pneumonitis - f/u BMP, Mg, Phos, monitor for refeeding syndrome, replete as needed - Continue Hypersal, Duoneb, and Vest Therapy for thick secretions - Consider follow up psych. Prior recommendation for Invega Sustenna (Christel) Kristi Tinajero MD PGY-1 Family Medicine Shailesh Santana MD - 11/10/2020 3:33 AM CST MICU Progress Note Date of Service: 11/10/2020 03:34 Reason for ICU admission: acute hypoxic and hypercapnic respiratory failure with ARDS Hospital Day: 22 ICU Day: 9 Intubation Day: extubated intubation/ICU day 8 Code Status: Full Hospital Course: Tahir Sanches Jr. is a 35 year old man with PMH of mood disorder,multiple hospital admissions during which he left AMA,polysubstance use disorder, achalasia s/p botox and PEG, noncompliance with dietary restrictions who pesented after leaving AMA for continued evaluation of presumed achalasia. GIperformedEGD with manometry diagnosing achalasia. CTS consulted recommending balloon dilation of esophageal sphincter, GIperformed esophagealBotox injection and PEG tube placement. Multidisciplinary meeting held to establish patient support network and plan for outpatient follow up, however, patient developed refeeding syndrome treated with repletion of phosphorous(IV and Enteral)formultiple days. The patient's hospital course was complicated with urosepsis, requiring pressor support and transfer to the MICU. Patient was stabilized and transferred to the floor, however, patient dev eloped respiratory distress, rapid called, rapidly decompensated and was transferred back to MICU where he was immediately intubated. CT thorax showing bilateral effusions new from prior CT and findings consistent with ARDS and esophageal distension. GI consulted and recommended NGT placement into the esophagus and suction the fluid material and remove NGT afterwards.Patient extubated after 7 days on ventilator, saturating well on RA. Last 24 hour events (major events): - receive 1uPRB for Hb 6.6 Subjective: Awake. Patient complains of pain everywhere. Ventilator Bundle: Sedation/Analgesia: none Stress ulcer prophylaxis: PPI DVT prophylaxis: SCD's Insulin drip: n/a Nutrition: Enteral through G tube Lines (with dates): Central Line: R IJ 11/06 A line: R radial 11/02 Baltazar: 11/04/2020 Intake/Output: Intake/Output Summary (Last 24 hours) at 11/10/2020 0334 Last data filed at 11/09/20201999 Gross per 24 hour Intake 3120 ml Output 1410 ml Net 1710 ml Physical Exam: Temp: [36.2 C (97.2 F)-37.1 C (98.8 F)] Heart Rate (monitor): [77-119] Pulse: [77-131] Resp: [14-27] BP: (95-122)/(83-101) Arterial Line BP: (102-136)/(73-91) MAP (mmHg): [89-108] MAP: [84 mmHg-109 mmHg] Constitutional: Patient awake and responsive to commands. Cries when assessing fluid status due to pain. Severe sarcopenia/cachexia. Extremely malnourished and chronically ill appeari HEENT: normocephalic atraumatic Neck: full range of motion Resp: mild crackles bilaterally anteriorly Cardio: regular rate and rhythm GI: soft; mildly distended; normoactive bowel sounds : Baltazar in place Rectal: not examined MSK: no clubbing, cyanosis. Bilateral hand and foot edema. Sacral ulcer Integ: no rashes Labs (pertinent only)/Imaging: reviewed Microbiology: Ucx 10/19- contamination COVID 10/20 and 10/26 Not detected (rapid) Ucx 10/31: proteus BCx 10/31: no organism isolated BCx 11/02: zari albicans COVID 11/02: not detected BCx 11/04: NG72H BCx 11/05: NG72H BCx 11/06: NG48H BCx 11/07: NG24H Cath Tip 11/07: NG24H Cath Tip 11/07: >100 Zari albicans Assessment/Plan: Tahir Sanches Jr. is a 35 year old male admitted with acute hypoxic and hypercapnic respiratory failure Neuro Bipolar disorder Schizophrenia Hx drug abuse (cocaine, amphetamines, marijuana) Patient responsive to commands. Resp Acute hypoxic and hypercapnic respiratory failure requiring mechanical ventilation 2/2 ARDS Elevated D dimer ?Aspiration pneumonia Bilateral mild to moderate pleural effusions R lung atelectasis Multiple bilateral patchy opacities ?Shift on CXR with severely dilated esophagus Patient extubated yesterday morning. SpO2s remain in the high 90s. - O2 PP Cardiovascular Hypotension- likely 2/2 sedation Sinus Tachycardia Patient's blood pressure remains stable without levophed, but patient is tachycardic into the 140s when in pain. - MAP goal >65 FEN/GI Achalasia s/p esophageal botox injection, PEG tube placement (10/27/2020) Concern for PBC Elevated transaminases Elevated alkaline phosphatase Positive AMA Refeeding syndrome Severe protein calorie malnutrition Patient with third spacing due to low albumin. Continuing to receive feeds via G tube. - BMP, Mg, Phos daily and replete lytes as needed - consider albumin and lasix for fluid shift ID Septic shock 2/2 candidemia fungemia CMV viremia Late latent syphilis Sacral ulcer Proteus UTI, resolved 1/2 culture tips have resulted with zari. Will continue current antifungal regimen. On antiviral for possible CMV pneumonitis. ID on board. - ganciclovir 225mg IV q12h - micafungin 100mg Q24H - follow-up PCP sputum - c/w weekly PCN G - f/u cultures - ID following Renal Nephrotic range proteinuria Hematuria Proteus UTI Patient appears swollen on physical exam, but with blood pressures ranging in the 80s-100s systolic,will need to hold diuretics right now. - monitor for hematuria - albumin 25 g, consider redosing Endo No active concerns Other Thrombocytopenia, undetermined etiology Anemia, undetermined etiology DVT prophylaxis: contraindicated 2/2 thrombocytopenia Prognosis: guarded Code Status: full code Shailesh Cloud MD Internal Medicine PGY-2 [facility] Team Pager: [phone] MAKER Associated attestation - Vincent Pérez MD - 11/10/2020 11:[address]ST[address] discussion with Dr. Cloud, I examined this patient. I agree with resident's note as written. Dariel Salazar MD - 11/09/2020 4:42 PM CSTBrief ID Note Keep micafungin, ganciclovir. Prince Salazar MD Infectious Diseases Fellow - PGY-4 MAKER Kristi Tinajero MD - 11/09/2020 2:24 PM CST Brief MICU Note/Transfer Note Date: 11/09/2020 14:33 Code Status: full ICU day: 8 Intubation Day: N/A Extubated yesterday Hospital Course: Tahir Sanches Jr. is a 35 year old man with PMH of mood disorder,multiple hospital admissions during which he left [place],polysubstance use disorder, achalasia s/p botox and PEG, noncompliance with dietary restrictions who pesented after leaving AMA for continued evaluation of presumed achalasia. GIperformedEGD with manometry diagnosing achalasia. CTS consulted recommending balloon dilation of esophageal sphincter, GIperformed esophagealBotox injection and PEG tube placement. Multidisciplinary meeting held to establish patient support network and plan for outpatient follow up, however, patient developed refeeding syndrome treated with repletion of phosphorous(IV and Enteral)formultiple days. The patient's hospital course was complicated with urosepsis, requiring pressor support and transfer to the MICU. Patient was stabilized and transferred to the floor, however, patient dev eloped respiratory distress, rapid called, rapidly decompensated and was transferred back to MICU where he was immediately intubated. CT thorax showing bilateral effusions new from prior CT and findings consistent with ARDS and esophageal distension. GI consulted and recommended NGT placement into the esophagus and suction the fluid material and remove NGT afterwards. Patient extubated after 7 days on ventilator, saturating well on RA. 12 Hour Events (includes major events throughout the day, patient status, significant labs, radiology, consult updates): - Hgb 6.6. Transfused 1 u pRBC - Mentation improved. States name, month, [facility]. - SpO2 95 on RA - Continue Hypersal, Duoneb, and Vest Therapy for thick secretions - Repleted Mg and Phos - BCx NG 24 - Cath tip - Zari albicans Vitals Ventilation / Pressors Sedation / Paralyzation Temp: [35.6 C (96.1 F)-37 C (98.6 F)] Heart Rate (monitor): [77-125] Pulse: [77-130] Resp: [12-25] BP: (95-122)/(82-101) Arterial Line BP: (93-132)/(68-88) MAP (mmHg): [89-108] MAP: [81 mmHg-103 mmHg] Vent mode: Standby Vt inspiratory (mL): 399 mL Resp (Vent Total): 11 FiO2 (%): 21 % Ve measured (L/min): 4.41 L/min PIP observed (cmH2O): 11 cmH2O Norepinephrine Dose (mcg/kg/min): 0 mcg/kg/min Phenylephrine Dose (mcg/kg/min): 0 mcg/kg/min Propofol Dose (mcg/kg/min): 0 mcg/kg/min Family update - Updated kori Shantel in room. Plan for the Next 12 Hours (includes anticipated events, complications to watch for, pending labs/radiology/consults): - TTF - Plan Midline for Tuesday - c/w micafungin (11/04 - ) - c/w ganciclovir (11/05 - ) at least 2 wks for possible CMV pneumonitis - f/u BMP, Mg, Phos, monitor for refeeding syndrome, replete as needed (Christel) Kristi Tinajero MD PGY-1 Family Medicine MAKER Associated attestation - Moreno Nelson Jr., MD - 11/09/2020 7:27 PM CSTI personally examined the patient on 11/[address] Tinajero's resident note as written . I actively participated in the decision-making process. Please see the resident's note for additional details. Zafar Espinal - 11/09/2020 12:12 PM CSTChaplain visited the patient per family request. Patient's parents were also present. Patient was awake and recognized braille transcriber from previous visits. Patient then fell asleep, without speaking. Parents were thankful for the patient's improvement and said they were holding up well to the situation. Organic Chemistry Professor provided presence, empathic listening, and encouraging words. Organic Chemistry Professor read some Scriptureand prayed that Richy would continue to be blessed by God in his healing and recovery. Family expressed gratitude. Zafar Espinal MDiv Organic Chemistry Professor [facility] Dept. Of [facility] Care Office: [phone] signed by Zafar Espinal at 11/09/2020 12:37 PM Juliann Kwong DO - 11/09/2020 12:03 AM CST MICU Progress Note Date of Service: 11/09/2020 00:03 Reason for ICU admission: acute hypoxic and hypercapnic respiratory failure with ARDS Hospital Day: 21 ICU Day: 8 Intubation Day: extubated intubation/ICU day 7 Code Status: Full Last 24 hour events (major events): - extubated, satting 98% RA - mental status examination improved - increased duoneb, hypersal, and vest therapy frequency Subjective: Awake. Patient complains of pain everywhere. Ventilator Bundle: Sedation/Analgesia: none Stress ulcer prophylaxis: PPI DVT prophylaxis: SCD's Insulin drip: n/a Nutrition: Enteral through G tube Lines (with dates): Central Line: R IJ 11/06 A line: R radial 11/02 Baltazar: 11/04/2020 Intake/Output: Intake/Output Summary (Last 24 hours) at 11/09/2020 0003 Last data filed at 11/08/20201999 Gross per 24 hour Intake 1533.9 ml Output 1500 ml Net 33.9 ml Physical Exam: Temp: [35.6 C (96.1 F)-36.5 C (97.7 F)] Heart Rate (monitor): [71-125] Pulse: [74-130] Resp: [10-23] BP: (99-120)/(71-98) Arterial Line BP: (93-129)/(59-86) MAP (mmHg): [83-104] MAP: [73 mmHg-103 mmHg] Constitutional: Patient awake and responsive to commands. Cries when assessing fluid status due to pain. Severe sarcopenia/cachexia. Extremely malnourished and chronically ill appeari HEENT: normocephalic atraumatic Neck: full range of motion Resp: mild crackles bilaterally anteriorly Cardio: regular rate and rhythm GI: soft; mildly distended; normoactive bowel sounds : Baltazar in place Rectal: not examined MSK: no clubbing, cyanosis. Bilateral hand and foot edema. Sacral ulcer Integ: no rashes Neuro: sedated Labs (pertinent only)/Imaging: reviewed Microbiology: Ucx 10/19- contamination COVID 10/20 and 10/26 Not detected (rapid) Ucx 10/31: proteus BCx 10/31: no organism isolated BCx 11/02: zari albicans COVID 11/02: not detected BCx 11/04: NG72H BCx 11/05: NG72H BCx 11/06: NG48H BCx 11/07: NG24H Cath Tip 11/07: NG24H Cath Tip 11/07: >100 Zari albicans Assessment/Plan: Tahir Sanches Jr. is a 35 year old male admitted with acute hypoxic and hypercapnic respiratory failure Neuro Bipolar disorder Schizophrenia Hx drug abuse (cocaine, amphetamines, marijuana) Patient responsive to commands. Resp Acute hypoxic and hypercapnic respiratory failure requiring mechanical ventilation 2/2 ARDS Elevated D dimer ?Aspiration pneumonia Bilateral mild to moderate pleural effusions R lung atelectasis Multiple bilateral patchy opacities ?Shift on CXR with severely dilated esophagus Patient extubated yesterday morning. SpO2s remain in the high 90s. - O2 PP Cardiovascular Hypotension- likely 2/2 sedation Sinus Tachycardia Patient's blood pressure remains stable without levophed, but patient is tachycardic into the 140s when in pain. - MAP goal >65 FEN/GI Achalasia s/p esophageal botox injection, PEG tube placement (10/27/2020) Concern for PBC Elevated transaminases Elevated alkaline phosphatase Positive AMA Refeeding syndrome Severe protein calorie malnutrition Patient with third spacing due to low albumin. Continuing to receive feeds via G tube. - BMP, Mg, Phos daily and replete lytes as needed - consider albumin and lasix for fluid shift ID Septic shock 2/2 candidemia fungemia CMV viremia Late latent syphilis Sacral ulcer Proteus UTI, resolved 1/2 culture tips have resulted with zari. Will continue current antifungal regimen. - ganciclovir 225mg IV q12h - micafungin 100mg Q24H - follow-up PCP sputum - c/w weekly PCN G - f/u cultures - ID following Renal Nephrotic range proteinuria Hematuria Proteus UTI Patient appears swollen on physical exam, but with blood pressures ranging in the 80s-100s systolic,will need to hold diuretics right now. - monitor for hematuria - albumin 25 g, consider redosing Endo No active concerns Other Thrombocytopenia, undetermined etiology Anemia, undetermined etiology DVT prophylaxis: contraindicated 2/2 thrombocytopenia Prognosis: guarded Code Status: full code End of daily progress note Juliann Fowler DO [facility] of Internal Medicine [facility] Course: Tahir Sanches . is a 35 year old man with PMH of mood disorder, multiple hospital admissions during which he left [place], polysubstance use disorder, achalasia s/p botox and PEG, noncompliance with dietary restrictions who pesented after leaving AMA for continued evaluation of presumed achalasia. GI performed EGD with manometry diagnosing achalasia. CTS consulted recommending balloon dilation of esophageal sphincter, GIperformed esophagealBotox injection and PEG tube placement. Multidisciplinary meeting held to establish patient support network and plan for outpatient follow up, however, patient developed refeeding syndrome treated with repletion of phosphorous(IV and Enteral)for multiple days. The patient's hospital course was complicated with urosepsis, requiring pressor support and transfer to the MICU. Patient was stabilized and transferred to the floor, however, patient developed respiratory distress, rapid called, rapidly decompensated and was transferred back to MICU where he was immediately intubated. CT thorax showing bilateral effusions new from prior CT and findings consistent with ARDS and esophageal distension. GI consulted and recommended NGT placement into the esophagus and suction the fluid material and remove NGT afterwards. Patient extubated after 7 days on karen tilator, saturating well on RA. MAKER Associated attestation - Moreno Nelson Jr., MD - 11/09/2020 2:40 PM CSTI personally examined the patient on 11/[address] Fowler's resident note as written . I actively participated in the decision-making process. Please see the resident's note for additional details. Dariel Salazar MD - 11/08/2020 1:53 PM CST INFECTIOUS DISEASES F/U NOTE Interval history: Pending hopeful extubation today. No acute events overnight. Physical Examination: Vitals: 11/08/20 1000 11/08/20 1100 11/08/20 1200 11/08/20 1204 BP: 119/86 117/83 100/73 Pulse: 87 84 80 92 Resp: 12 18 15 14 Temp: 36.2 C (97.2 F) 36.2 C (97.2 F) 36.2 C (97.2 F) 36 C (96.8 F) TempSrc: SpO2: 100% 100% Weight: Height: General: Patient is intubated. Patient is emaciated Lungs: No wheezing, ventilated GI: abdomen soft; non-tender; non-distended; Extremities: no edema Neuro: Not able to evaluate as patient is sedated and intubated. Skin: No cyanosis Laboratory: pH 7.52 Microbiology: Bcx 11/05/20: negative. Blood cultures done on 11/02/2020 growing Zari albicans and Zari glabrata Sputum 11/03/2020: Zari tropicalis Urine culture 10/31/2020 growing Proteus 10/31/2020 blood cultures negative 10/17/2020 CSF cultures negative CSF VDRL negative, glucose 46, protein 127, 1 WBC. HIV test negative. Hepatitis B and hepatitis C negative. Radiology: Chest x-ray 11/02/2020 reviewed, CT of the thorax ordered on 11/03/[address] chest abdomen pelvis done on 10/31/2020 with contrast: Bilateral [id number] pleural effusions Bilateral patchy groundglass opacities most prominent in the right upper lobe Partially visualized exophytic sclerotic lesion in the left humerus may represent osteochondroma Distended esophagus, consistent with history of achalasia Ascites, anasarca right hemiscrotum moderate to large hydrocele. Assessment: 35-year-old male with history of achalasia, recreational drug use, ID consulted for elevated CMV titers and positive blood cultures for Zari #CMV titers noted to be 359 on 10/13/21 and 23,001 11/02/2020. As patient is malnourished with BMI of 16 would qualify him for being immunocompromised. Recommend ganciclovir to 225 mg IV twice daily.Monitor CBC while on the same. F/u PCP from the sputum. (unlikely as on low fio2) #s/p 5 days of antibiotics for Proteus in the urine. #Positive blood culture for zari albicans and glabrata likely from old lines(removed). Opthalmic exam unremarkable. TTE showing thickened aortic valve. #severe malnutrition #achalasia, s/p peg tube. Recommendations: -continue ganciclovir(11/05--), repeat CMV titres on 11/12/20 -f/u sputum for PCP, repeat bcx. -Continue micafungin for fungemia (11/04/20--) -wound care consult, offloading for decubitus ulcer. Close attention to aggressive wound care Thank you for the consult. Case was discussed with attending physician. Prince Salazar MD Infectious Diseases Fellow - PGY-4 MAKER Associated attestation - Zachary Gu MD - 11/11/2020 4:54 AM CSTI personally examined the patient on 11/08/[address] Salazar's note as written. I actively participated in the decision-making process. Please see the fellow's note for additional details.Kristi Tinajero MD - 11/08/2020 1:49 PM SODA MAKER Brief MICU Note Date: 11/08/2020 16:28 Code Status: full ICU day: 7 Intubation Day: N/A Extubated today 12 Hour Events (includes major events throughout the day, patient status, significant labs, radiology, consult updates): - Extubated today - Currently SpO2 98 on RA - Mentation after extubation - open eyes, responds by nodding or shaking head to respond to questions, follows command to squeeze hands or wiggle toes. - Started Hypersal, Duoneb, and Vest Therapy for thick secretions - Repleted Mg and Phos Vitals Ventilation / Pressors Sedation / Paralyzation Temp: [35.9 C (96.6 F)-36.8 C (98.2 F)] Heart Rate (monitor): [71-105] Pulse: [67-105] Resp: [10-101] BP: (71-119)/(52-88) Arterial Line BP: (94-129)/(54-73) MAP (mmHg): [60-98] MAP: [72 mmHg-91 mmHg] Vent mode: Standby Vt inspiratory (mL): 399 mL Resp (Vent Total): 11 FiO2 (%): 40 % Ve measured (L/min): 4.41 L/min PIP observed (cmH2O): 11 cmH2O Norepinephrine Dose (mcg/kg/min): 0 mcg/kg/min Phenylephrine Dose (mcg/kg/min): 0 mcg/kg/min Propofol Dose (mcg/kg/min): 0 mcg/kg/min Family update - Updated mom Shantel. She states she intends to visit tomorrow. Plan for the Next 12 Hours (includes anticipated events, complications to watch for, pending labs/radiology/consults): - Plan Midline for Tuesday - c/w micafungin (11/04 - ) - c/w ganciclovir (11/05 - ) at least 2 wks for possible CMV pneumonitis - f/u BMP, Mg, Phos, monitor for refeeding syndrome, replete as needed - f/u repeat blood cultures, fungal cultures - f/u 24 hour urine protein (Christel) Kristi Tinajero MD PGY-1 Family Medicine Juliann Kwong DO - 11/08/2020 12:12 AM CST MICU Progress Note Date of Service: 11/08/2020 00:12 Reason for ICU admission: acute hypoxic and hypercapnic respiratory failure with ARDS ICU Day: 7 Intubation Day: 7 Code Status: Full Last 24 hour events (major events): - failed SBT Subjective: Sedated Ventilator Bundle: Sedation/Analgesia + RASS: Propofol Stress ulcer prophylaxis: PPI DVT prophylaxis: SCD's Insulin drip: no Rate Nutrition: Enteral Lines (with dates): PIV: 10/22 PICC: L brachial 10/31 Central Line: R IJ 11/06 A line: R radial 11/02 Baltazar: 11/04/2020 Intake/Output: Intake/Output Summary (Last 24 hours) at 11/08/2020 0012 Last data filed at 11/07/2020 2000 Gross per 24 hour Intake 2018.3 ml Output 840 ml Net 1178.3 ml Physical Exam: Temp: [35.5 C (95.9 F)-36.8 C (98.2 F)] Heart Rate (monitor): [66-105] Pulse: [63-102] Resp: [8-101] BP: (71-108)/(52-86) Arterial Line BP: (88-141)/(48-80) MAP (mmHg): [60-95] MAP: [60 mmHg-101 mmHg] Constitutional: intubated and minimally sedated. Severe sarcopenia/cachexia. Extremely malnourished and chronically ill appearing. Patient responsive to commands. HEENT: normocephalic atraumatic Neck: full range of motion Resp: inspiratory crackles bilaterally Cardio: regular rate and rhythm GI: soft; mildly distended; normoactive bowel sounds : Baltazar in place Rectal: not examined MSK: no clubbing, cyanosis. Bilateral hand and foot edema. Sacral ulcer Integ: no rashes Neuro: sedated Labs (pertinent only)/Imaging: reviewed Microbiology: Ucx 10/19- contamination COVID 10/20 and 10/26 Not detected (rapid) Ucx 10/31: proteus BCx 10/31: no organism isolated BCx 11/02: zari albicans COVID 11/02: not detected BCx 11/04: NG72H BCx 11/05: NG48H BCx 11/06: NG24H BCx 11/07: pending Assessment/Plan: Tahir Sanches Jr. is a 35 year old male admitted with acute hypoxic and hypercapnic respiratory failure Neuro Bipolar disorder Schizophrenia Hx drug abuse (cocaine, amphetamines, marijuana) Intubated and sedated. -Sedation: Propofol Resp Acute hypoxic and hypercapnic respiratory failure requiring mechanical ventilation 2/2 ARDS Elevated D dimer ?Aspiration pneumonia Bilateral mild to moderate pleural effusions R lung atelectasis Multiple bilateral patchy opacities ?Shift on CXR with severely dilated esophagus Will continue to attempt SBTs each day. -Intubated on minimal settings -reattempt SBT -f/u blood cultures Cardiovascular Hypotension- likely 2/2 sedation Patient levophed was discontinued and blood pressures have been in the 90s-100s systolic. Patient isedematous on exam, but with patient's low-normal blood pressures diuresis could drop his blood pressure to the point of requiring more pressors. We will hold off for now. -consider diuresis once hemodynamically stable - MAP goal >65 FEN/GI Achalasia s/p esophageal botox injection, PEG tube placement (10/27/2020) Concern for PBC Elevated transaminases Elevated alkaline phosphatase Positive AMA Refeeding syndrome Severe protein calorie malnutrition It appears patient's esophagus remains significantly dilated with retention of ingested PO intake with possible mass effect on airway however will await final xray read. Receiving feeds via PEG tube aswell - BMP, Mg, Phos daily and replete lytes as needed - PEG tube for enteral feeds- hold for SBT - suction esophagus with NGT prior to extubation ID Septic shock 2/2 candidemia fungemia CMV viremia Late latent syphilis Sacral ulcer Proteus UTI, resolved UTI treated. Currently being treated for CMV viremia and candidemia fungemia. Though patient is HIV negative, given malnourishment the patient is considered immunocompromised therefore more susceptibleto infection. We will continue treatment as below. - ganciclovir 225mg IV q12h - micafungin 100mg Q24H - follow-up PCP sputum - c/w weekly PCN G - f/u cultures - ID following Renal Nephrotic range proteinuria Hematuria Proteus UTI Patient appears swollen on physical exam, but with blood pressures ranging in the 80s-100s systolic,will need to hold diuretics right now. - monitor for hematuria - albumin 25 g, consider redosing Endo No active concerns Other Thrombocytopenia, undetermined etiology Anemia, undetermined etiology DVT prophylaxis: contraindicated 2/2 thrombocytopenia Lines/Catheters: PIV 10/22 PICC 10/31 PEG Prognosis: guarded Code Status: full code End of daily progress note Juliann Fowler DO Department of Internal Medicine PGY-1, [facility] Hospital Course: Tahir Sanches Jr. is a 35 year old man with PMH of mood disorder, multiple hospital admissions during which he left AMA, polysubstance use disorder, achalasia s/p botox and PEG, noncompliance with dietary restrictions who pesented after leaving AMA for continued evaluation of presumed achalasia. GI performed EGD with manometry diagnosing achalasia. CTS consulted recommending balloon dilation of esophageal sphincter, GIperformed esophagealBotox injection and PEG tube placement. Multidisciplinary meeting held to establish patient support network and plan for outpatient follow up, however, patient developed refeeding syndrome treated with repletion of phosphorous(IV and Enteral)for multiple days. The patient's hospital course was complicated with urosepsis, requiring pressor support and transfer to the MICU. Patient was stabilized and transferred to the floor, however, patient developed respiratory distress, rapid called, rapidly decompensated and was transferred back to MICU where he was immediately intubated. CT thorax showing bilateral effusions new from prior CT and findings consistent with ARDS and esophageal distension. GI consulted and recommended NGT placement into the esophagus and suction the fluid material and remove NGT afterwards. Several SBTs have been attempted butpatient has failed. MAKER Associated attestation - Moreno Nelson Jr., MD - 11/08/2020 5:10 PM CSTI personally examined the patient on 11/[address] Fowler's resident note as written . I actively participated in the decision-making process. Please see the resident's note for additional details. Kenton Ventura MD - 11/07/2020 9:15 PM CST INFECTIOUS DISEASES F/U NOTE Interval history: Patient seen and examined, lying in bed on vent. Medications: Current Facility-Administered Medications Medication Dose Route Frequency Last Rate Last Admin lidocaine 1% (PF) (XYLOCAINE) injection 5 mL 5 mL Subcutaneous PRN NaCl 0.9% (NS) injection 10 mL 10 mL Slow IV Push PRN potassium, sodium phosphates (PHOS-NAK) 280-160-250 mg packet 2 Packet 2 Packet Enteral TID 2Packet at 11/07/20 1446 ergocalciferol (vitamin D2) (CALCIDOL) 200 mcg/mL (8,000 unit/mL) oral drops 2,000 Units 2,000 Units Oral DAILY 2,000 Units at 11/07/20 0748 lidocaine 1% (PF) (XYLOCAINE) injection 5 mL 5 mL Subcutaneous PRN NaCl 0.9% (NS) injection 10 mL 10 mL Slow IV Push PRN sodium hypochlorite 0.025% (Dakin's) solution Topical BIDPRN Given at 11/07/20 0858 zinc oxide 20 % ointment Topical PRN Given at 11/07/20 0858 erythromycin (ILOTYCIN) 5 mg/gram (0.5 %) ophthalmic ointment 0.5 Inch 0.5 Inch Both Eyes QID0.5 Inch at 11/07/20 1605 ganciclovir (CYTOVENE) 225 mg in NaCl 0.9% (NS) 100 mL 225 mg IV Piggyback Q12H 225 mg at 11/07/20 0802 micafungin (MYCAMINE) 100 mg in NaCl 0.9% (NS) 100 mL MINI-BAG 100 mg IV Piggyback Q24H ABX 100 mg at 11/07/20 1133 NaCl 0.9% (NS) injection 10 mL 10 mL Slow IV Push PRN nicotine (NICODERM) 7 mg/24 hr patch 1 Patch 1 Patch Topical [id number] Sliding Scale Insulin - Lispro (HumaLOG) + Fsbg Testing Subcutaneous Q4H Stopped at D5W 0.45% NaCl (1/2NS) IV infusion 1,000 mL 1,000 mL IV Infusion CONTINUOUS 50 mL/hr at 11/06/20 1020 1,000 mL at 11/06/20 1020 dexMEDEtomidine 400 mcg in 0.9 % NaCl 100 mL (PRECEDEX) RTU IV infusion 0.2-1.5 mcg/kg/hr IV Infusion TITRATE Stopped at 11/03/20 2200 dextrose 50 % in water (D50W) injection 50 mL 50 mL Slow IV Push PRN 25 mL at 11/07/20 1826 glucagon (GLUCAGEN DIAGNOSTIC KIT) injection 1 mg 1 mg Intramuscular PRN NORepinephrine (LEVOPHED) 32 mg in NaCl 0.9% (NS) 250 mL infusion 0.05-1.5 mcg/kg/min IV Infusion TITRATE 1.47 mL/hr at 11/07/20 1902 0.07 mcg/kg/min at 11/07/20 1902 propofoL IV infusion 5-50 mcg/kg/min IV Infusion TITRATE 10.75 mL/hr at 11/07/20 1735 40 mcg/kg/min at 11/07/20 1735 hydrOXYzine (ATARAX) 10 mg/5 mL solution 10 mg 10 mg Oral Q6HPRN 10 mg at 11/02/20 0407 NaCl 0.9% (NS) injection 10 mL 10 mL Slow IV Push PRN calcium carbonate 500 mg RINCON CA/5 mL 500 mg/5 mL (1,250 mg/5 mL) suspension 500 mg 500 mg Enteral BID MEALS 500 mg at 11/07/20 1604 foLIC acid (FOLATE) tablet 1 mg 1 mg Enteral DAILY 1 mg at 11/07/20 0748 methocarbamol (ROBAXIN) 50 mg/mL oral suspension 1,000 mg 1,000 mg Enteral TID 1,000 mg at 11/07/20 1446 multivitamin (CENTRUM) solution 15 mL 15 mL Enteral DAILY 15 mL at 11/07/20 0748 pantoprazole (PROTONIX) 2 mg/mL oral suspension 40 mg 40 mg Enteral BID 40 mg at 11/07/20 0748 vitamin B-12 (CYANOCOBALAMIN) tablet 1,000 mcg 1,000 mcg Enteral DAILY 1,000 mcg at 11/07/20 0748 HYDROcodone-acetaminophen (HYCET) 7.5-325 mg/15 mL solution 7.5 mg 7.5 mg Enteral Q6HPRN 7.5 mg at 11/02/20 0232 risperiDONE (RISPERDAL M-TAB) disintegrating tablet 2 mg 2 mg Enteral BID 2 mg at 11/07/20 0748 thiamine (VITAMIN B1) tablet 100 mg 100 mg Enteral BID 100 mg at 11/07/20 0800 lidocaine (LIDODERM) 5 % (700 mg/patch) patch 1 Patch 1 Patch Topical DAILY Stopped at 11/04/20 0900 Physical Examination: Vitals: 11/07/20 1700 11/07/20 1800 11/07/20 1900 11/07/20 2018 BP: (!) 75/55 (!) 71/53 (!) 76/52 BP Location: Patient Position: Pulse: 78 74 77 Resp: 11 (!) 101 15 11 Temp: 36.8 C (98.2 F) 36.1 C (97 F) 35.9 C (96.6 F) TempSrc: Bladder Bladder Bladder SpO2: 100% 100% 100% Weight: Height: General: Patient is sedated and intubated. Lungs: CTA b/l Cardio: S1, S2 normal; no murmurs GI: abdomen soft; non-tender; non-distended; Extremities: no edema Skin: Bedsore present on the sacrum. Neuro: Not able to evaluate as patient is sedated and intubated. Laboratory: WBC (10*3/L) Date Value 11/04/2020 5.40 HGB (g/dL) Date Value 11/04/2020 8.8 (L) PLT (10*3/L) Date Value 11/04/2020 100 (L) CREATININE (mg/dL) Date Value 11/07/2020 0.22 (L) GLUCOSE (mg/dL) Date Value 11/07/2020 79 ALT(SGPT) (U/L) Date Value 01/10/2019 15 ALTv (U/L) Date Value 11/07/2020 54 (H) AST(SGOT) (U/L) Date Value 11/07/2020 48 (H) ALK PHOS (U/L) Date Value 11/07/2020 208 (H) Microbiology: Bcx 11/05/20: negative. Blood cultures done on 11/02/2020 growing Zari albicans and Zari glabrata Sputum 11/03/2020: Zari tropicalis Urine culture 10/31/2020 growing Proteus 10/31/2020 blood cultures negative 10/17/2020 CSF cultures negative CSF VDRL negative, glucose 46, protein 127, 1 WBC. HIV test negative. Hepatitis B and hepatitis C negative. Radiology: Chest x-ray 11/02/2020 reviewed, CT of the thorax ordered on 11/03/[address] chest abdomen pelvis done on 10/31/2020 with contrast: Bilateral ibdff-ve-hfejpzui pleural effusions Bilateral patchy groundglass opacities most prominent in the right upper lobe Partially visualized exophytic sclerotic lesion in the left humerus may represent osteochondroma Distended esophagus, consistent with history of achalasia Ascites, anasarca right hemiscrotum moderate to large hydrocele. Assessment: 35-year-old male with history of achalasia, recreational drug use, ID consulted for elevated CMV titers and positive blood cultures for Zari #CMV titers noted to be 359 on 10/13/21 and 23,001 11/02/2020. As patient is malnourished with BMI of 16 would qualify him for being immunocompromised. Recommend ganciclovir to 225 mg IV twice daily.Monitor CBC while on the same. F/u PCP from the sputum. (unlikely as on low fio2) #s/p 5 days of antibiotics for Proteus in the urine. #Positive blood culture for zari albicans and glabrata likely from old lines(removed). Opthalmic exam unremarkable. TTE showing thickened aortic valve. #severe malnutrition #achalasia, s/p peg tube. Recommendations: -continue ganciclovir(11/05--), repeat CMV titres on 11/12/20 -f/u sputum for PCP, repeat bcx. -Continue micafungin(11/04/20--) -wound care consult, offloading for decubitus ulcer. Thank you for the consult. Case was discussed with attending physician. Kenton Ventura PGY4, ID MAKER Associated attestation - Zia SusanDO - 11/12/2020 4:42 PM CSTI personally examined the patient on 11/07/[address] Ventura's note as written. I actively participated in the decision making process. Please see the fellow's note for additional details. Susan Lizarraga DO Infectious Diseases Faculty Roberto Gooden MD - 11/07/2020 8:07 AM CST Brief MICU Note Date: 11/07/2020 18:47 Code Status: full ICU day: 6 Intubation Day: 6 12 Hour Events (includes major events throughout the day, patient status, significant labs, radiology, consult updates): -MV: FiO2 50 PEEP 5 SpO2 100 - sedation: propofol 40 - pressors: levophed (intermittent, PRN) - patient more awake and following commands, SBT attempted, pulling increased tidal volumes than last SBT - c/w micafungin, ganciclovir (will treat for at least 2 weeks for possible CMV pneumonitis) - central line placed, PICC and midline removed, sent for culture - BMP, Mg Phos stable, continue to follow Vitals Ventilation / Pressors Sedation / Paralyzation Temp: [35.5 C (95.9 F)-36.8 C (98.2 F)] Heart Rate (monitor): [66-105] Pulse: [63-102] Resp: [8-101] BP: (71-111)/(53-86) Arterial Line BP: (88-141)/(48-80) MAP (mmHg): [61-95] MAP: [60 mmHg-101 mmHg] Vent mode: PRVC A/C Vt inspiratory (mL): 303 mL Resp (Vent Total): 15 FiO2 (%): 50 % Ve measured (L/min): 6.35 L/min PIP observed (cmH2O): 7 cmH2O Norepinephrine Dose (mcg/kg/min): 0.05 mcg/kg/min Phenylephrine Dose (mcg/kg/min): 0 mcg/kg/min Propofol Dose (mcg/kg/min): 40 mcg/kg/min Plan for the Next 12 Hours (includes anticipated events, complications to watch for, pending labs/radiology/consults): - possible SBT in AM (hold feeds/sedation in AM), consider placing NGT to suction before extubation - f/u BMP, Mg, Phos, monitor for refeeding syndrome, replete as needed - f/u repeat blood cultures, fungal cultures - f/u 24 hour urine protein Roberto Gooden M.D. Department of Anesthesiology PGY-1 [facility] Doctor's Number: [id number] Juliann Kwong DO - 11/07/2020 12:17 AM CST MICU Progress Note Date of Service: 11/07/2020 00:17 Reason for ICU admission: acute hypoxic and hypercapnic respiratory failure with ARDS ICU Day: 6 Intubation Day: 6 Code Status: Full Last 24 hour events (major events): - SBT attempted but patient did not follow commands off sedation - R IJ placed - MIDD line pulled - PICC pulled, tip sent for culture Subjective: Sedated Ventilator Bundle: Sedation/Analgesia + RASS: Propofol Stress ulcer prophylaxis: PPI DVT prophylaxis: SCD's Insulin drip: no Rate Nutrition: Enteral Lines (with dates): PIV: 10/22 PICC: L brachial 10/31 Central Line: R IJ 11/06 A line: R radial 11/02 Baltazar: 11/04/2020 Intake/Output: Intake/Output Summary (Last 24 hours) at 11/07/2020 0017 Last data filed at 11/06/2020 1800 Gross per 24 hour Intake 2621.4 ml Output 590 ml Net 2031.4 ml Physical Exam: Temp: [35.7 C (96.3 F)-37.1 C (98.8 F)] Heart Rate (monitor): [65-106] Pulse: [63-101] Resp: [0-16] BP: (77-108)/(61-84) Arterial Line BP: (88-114)/(55-83) MAP (mmHg): [68-90] MAP: [69 mmHg-87 mmHg] Constitutional: intubated and minimally sedated. Severe sarcopenia/cachexia. Extremely malnourished and chronically ill appearing. Patient responsive to commands. HEENT: normocephalic atraumatic Neck: full range of motion Resp: inspiratory crackles bilaterally Cardio: regular rate and rhythm GI: soft; mildly distended; normoactive bowel sounds : Baltazar in place Rectal: not examined MSK: no clubbing, cyanosis. Bilateral hand and foot edema. Sacral ulcer Integ: no rashes Neuro: responsive to commands, slightly nodding yes to respond to questions, giving thumbs up, squeezing hands to command Labs (pertinent only)/Imaging: reviewed Microbiology: Ucx 10/19- contamination COVID 10/20 and 10/26 Not detected (rapid) Ucx 10/31: proteus BCx 10/31: no organism isolated BCx 11/02: zari albicans COVID 11/02: not detected BCx 11/04: [id number] Assessment/Plan: Tahir Sanches Jr. is a 35 year old male admitted with acute hypoxic and hypercapnic respiratory failure Neuro Bipolar disorder Schizophrenia Hx drug abuse (cocaine, amphetamines, marijuana) Intubated and minimally sedated. Patient following commands on examination today with thumbs up to respond to questions. -Sedation: Propofol Resp Acute hypoxic and hypercapnic respiratory failure requiring mechanical ventilation 2/2 ARDS Elevated D dimer ?Aspiration pneumonia Bilateral mild to moderate pleural effusions R lung atelectasis Multiple bilateral patchy opacities ?Shift on CXR with severely dilated esophagus Patient failed SBT yesterday, will reattempt SBT this morning. -Intubated on minimal settings -reattempt SBT -f/u blood cultures Cardiovascular Hypotension- likely 2/2 sedation Patient levophed was discontinued and blood pressures have been in the 90s-100s systolic. Patient isedematous on exam, but with patient's low-normal blood pressures diuresis could drop his blood pressure to the point of requiring more pressors. We will hold off for now. -consider diuresis once hemodynamically stable - MAP goal >65 FEN/GI Achalasia s/p esophageal botox injection, PEG tube placement (10/27/2020) Concern for PBC Elevated transaminases Elevated alkaline phosphatase Positive AMA Refeeding syndrome Severe protein calorie malnutrition It appears patient's esophagus remains significantly dilated with retention of ingested PO intake with possible mass effect on airway however will await final xray read. Receiving feeds via PEG tube aswell - BMP, Mg, Phos daily and replete lytes as needed - PEG tube for enteral feeds- hold for SBT - consider NGT decompression of esophagus per GI recommendation ID Septic shock 2/2 candidemia fungemia CMV viremia Late latent syphilis Sacral ulcer Proteus UTI, resolved UTI treated. Currently being treated for CMV viremia and candidemia fungemia. Though patient is HIV negative, given malnourishment the patient is considered immunocompromised therefore more susceptibleto infection. We will continue treatment as below. - ganciclovir 225mg IV q12h - micafungin 100mg Q24H - follow-up PCP sputum - c/w weekly PCN G - f/u cultures - ID following Renal Nephrotic range proteinuria Hematuria Proteus UTI Patient appears swollen on physical exam, but with blood pressures ranging in the 80s-100s systolic,will need to hold diuretics right now. - monitor for hematuria - albumin 25 g, consider redosing Endo No active concerns Other Thrombocytopenia, undetermined etiology Anemia, undetermined etiology DVT prophylaxis: contraindicated 2/2 thrombocytopenia Lines/Catheters: PIV 10/22 PICC 10/31 PEG Prognosis: guarded Code Status: full code End of daily progress note Juliann Fowler DO [facility] Course: Tahir Sanches Jr. is a 35 year old man with PMH of mood disorder, multiple hospital admissions during which he left AMA, polysubstance use disorder, achalasia s/p botox and PEG, noncompliance with dietary restrictions who pesented after leaving AMA for continued evaluation of presumed achalasia. GI performed EGD with manometry diagnosing achalasia. CTS consulted recommending balloon dilation of esophageal sphincter, GIperformed esophagealBotox injection and PEG tube placement. Multidisciplinary meeting held to establish patient support network and plan for outpatient follow up, however, patient developed refeeding syndrome treated with repletion of phosphorous(IV and Enteral)for multiple days. The patient's hospital course was complicated with urosepsis, requiring pressor support and transfer to the MICU. Patient was stabilized and transferred to the floor, however, patient developed respiratory distress, rapid called, rapidly decompensated and was transferred back to MICU where he was immediately intubated. CT thorax showing bilateral effusions new from prior CT and findings consistent with ARDS and esophageal distension. GI consulted and recommended NGT placement into the esophagus and suction the fluid material and remove NGT afterwards. Several SBTs have been attempted butpatient has failed. MAKER Associated attestation - Moreno Nelson Jr., MD - 11/07/2020 1:39 PM CSTI personally examined the patient on 11/[address] Fowler's resident note as written . I actively participated in the decision-making process. Please see the resident's note for additional details. Kenton Ventura MD - 11/06/2020 10:21 PM CST INFECTIOUS DISEASES F/U NOTE Interval history: Patient seen and examined, lying in bed on vent. Medications: Current Facility-Administered Medications Medication Dose Route Frequency Last Rate Last Admin potassium, sodium phosphates (PHOS-NAK) 280-160-250 mg packet 1 Packet 1 Packet Enteral QID 1Packet at 11/06/20 2208 ergocalciferol (vitamin D2) (CALCIDOL) 200 mcg/mL (8,000 unit/mL) oral drops 2,000 Units 2,000 Units Oral DAILY 2,000 Units at 11/06/20 1020 lidocaine 1% (PF) (XYLOCAINE) injection 5 mL 5 mL Subcutaneous PRN NaCl 0.9% (NS) injection 10 mL 10 mL Slow IV Push PRN sodium hypochlorite 0.025% (Dakin's) solution Topical BIDPRN Given at 11/06/20 1547 zinc oxide 20 % ointment Topical PRN Given at 11/06/20 1547 erythromycin (ILOTYCIN) 5 mg/gram (0.5 %) ophthalmic ointment 0.5 Inch 0.5 Inch Both Eyes QID0.5 Inch at 11/06/20 1524 ganciclovir (CYTOVENE) 225 mg in NaCl 0.9% (NS) 100 mL 225 mg IV Piggyback Q12H 225 mg at 11/06/20 2208 micafungin (MYCAMINE) 100 mg in NaCl 0.9% (NS) 100 mL MINI-BAG 100 mg IV Piggyback Q24H ABX 100 mg at 11/06/20 1144 NaCl 0.9% (NS) injection 10 mL 10 mL Slow IV Push PRN nicotine (NICODERM) 7 mg/24 hr patch 1 Patch 1 Patch Topical [id number] Sliding Scale Insulin - Lispro (HumaLOG) + Fsbg Testing Subcutaneous Q4H Stopped at D5W 0.45% NaCl (1/2NS) IV infusion 1,000 mL 1,000 mL IV Infusion CONTINUOUS 50 mL/hr at 11/06/20 1020 1,000 mL at 11/06/20 1020 dexMEDEtomidine 400 mcg in 0.9 % NaCl 100 mL (PRECEDEX) RTU IV infusion 0.2-1.5 mcg/kg/hr IV Infusion TITRATE Stopped at 11/03/20 220 dextrose 50 % in water (D50W) injection 50 mL 50 mL Slow IV Push PRN 50 mL at 11/04/20 0712 glucagon (GLUCAGEN DIAGNOSTIC KIT) injection 1 mg 1 mg Intramuscular PRN NORepinephrine (LEVOPHED) 32 mg in NaCl 0.9% (NS) 250 mL infusion 0.05-1.5 mcg/kg/min IV Infusion TITRATE 1.05 mL/hr at 11/06/20 1840 0.05 mcg/kg/min at 11/06/20 1840 propofoL IV infusion 5-50 mcg/kg/min IV Infusion TITRATE 6.72 mL/hr at 11/06/20 1201 25 mcg/kg/min at 11/06/20 1201 hydrOXYzine (ATARAX) 10 mg/5 mL solution 10 mg 10 mg Oral Q6HPRN 10 mg at 11/02/20 0407 NaCl 0.9% (NS) injection 10 mL 10 mL Slow IV Push PRN calcium carbonate 500 mg RINCON CA/5 mL 500 mg/5 mL (1,250 mg/5 mL) suspension 500 mg 500 mg Enteral BID MEALS 500 mg at 11/06/20 1822 foLIC acid (FOLATE) tablet 1 mg 1 mg Enteral DAILY 1 mg at 11/06/20 0800 methocarbamol (ROBAXIN) 50 mg/mL oral suspension 1,000 mg 1,000 mg Enteral TID 1,000 mg at 11/06/20 220 multivitamin (CENTRUM) solution 15 mL 15 mL Enteral DAILY 15 mL at 11/06/20 0800 pantoprazole (PROTONIX) 2 mg/mL oral suspension 40 mg 40 mg Enteral BID 40 mg at 11/06/202207 vitamin B-12 (CYANOCOBALAMIN) tablet 1,000 mcg 1,000 mcg Enteral DAILY 1,000 mcg at 11/06/20 0800 HYDROcodone-acetaminophen (HYCET) 7.5-325 mg/15 mL solution 7.5 mg 7.5 mg Enteral Q6HPRN 7.5 mg at 11/02/20 0232 risperiDONE (RISPERDAL M-TAB) disintegrating tablet 2 mg 2 mg Enteral BID 2 mg at 11/06/202207 thiamine (VITAMIN B1) tablet 100 mg 100 mg Enteral BID 100 mg at 11/06/202206 lidocaine (LIDODERM) 5 % (700 mg/patch) patch 1 Patch 1 Patch Topical DAILY Stopped at 11/04/20 0900 Physical Examination: Vitals: 11/06/20 1700 11/06/20 1800 11/06/20 1900 11/06/202009 BP: 100/69 98/70 98/70 BP Location: Patient Position: Pulse: 70 63 90 71 Resp: (!) 0 09 30 14 Temp: 36.7 C (98.1 F) 36.1 C (97 F) 36.1 C (97 F) 35.7 C (96.3 F) TempSrc: Bladder Bladder Bladder SpO2: 100% 100% 100% 98% Weight: Height: General: Patient is sedated and intubated. Lungs: CTA b/l Cardio: S1, S2 normal; no murmurs GI: abdomen soft; non-tender; non-distended; Extremities: no edema Skin: Bedsore present on the sacrum. Neuro: Not able to evaluate as patient is sedated and intubated. Laboratory: WBC (10*3/L) Date Value 11/04/2020 5.40 HGB (g/dL) Date Value 11/04/2020 8.8 (L) PLT (10*3/L) Date Value 11/04/2020 100 (L) CREATININE (mg/dL) Date Value 11/06/2020 0.22 (L) GLUCOSE (mg/dL) Date Value 11/06/2020 84 ALT(SGPT) (U/L) Date Value 01/10/2019 15 ALTv (U/L) Date Value 11/06/2020 50 AST(SGOT) (U/L) Date Value 11/06/2020 52 (H) ALK PHOS (U/L) Date Value 11/06/2020 201 (H) Microbiology: Blood cultures done on 11/02/2020 growing budding yeast with pseudohyphae Sputum 11/03/2020: Zari tropicalis Urine culture 10/31/2020 growing Proteus 10/31/2020 blood cultures negative 10/17/2020 CSF cultures negative CSF VDRL negative, glucose 46, protein 127, 1 WBC. HIV test negative. Hepatitis B and hepatitis C negative. Radiology: Chest x-ray 11/02/2020 reviewed, CT of the thorax ordered on 11/03/[address] chest abdomen pelvis done on 10/31/2020 with contrast: Bilateral dpegd-gt-wpdjqrpw pleural effusions Bilateral patchy groundglass opacities most prominent in the right upper lobe Partially visualized exophytic sclerotic lesion in the left humerus may represent osteochondroma Distended esophagus, consistent with history of achalasia Ascites, anasarca Cachexia Fluid attenuating structure in the right hemiscrotum moderate to large hydrocele. Assessment: 35-year-old male with history of achalasia, recreational drug use, ID consulted for elevated CMV titers and positive blood cultures for yeast #CMV titers noted to be 359 on 10/13/21 and 23,001 11/02/2020. As patient is malnourished with BMI of 16 would qualify him for being immunocompromised. Recommend ganciclovir to 225 mg IV twice daily.Monitor CBC while on the same. F/u PCP from the sputum. (unlikely as on low fio2) #s/p 5 days of antibiotics for Proteus in the urine. #Positive blood culture for yeast likely from old lines(removed). Opthalmic exam unremarkable. #severe malnutrition #achalasia, s/p peg tube. Recommendations: -continue ganciclovir(11/05--), repeat CMV titres in 1 week. -f/u sputum for PCP, repeat bcx. -Continue micafungin(11/04/20--) -wound care consult, offloading for decubitus ulcer. Thank you for the consult. Case was discussed with attending physician. Kenton Ventura PGY4, ID MAKER Associated attestation - Arline Locke MD - 11/15/2020 4:59 PM SODA MAKER I personally saw and evaluated the patient on this day and agree with the findings as documented by the house registry rn. We discussed the assessments and management plan and I agree with the house registry rn's documentation as written .Roberto Gooden MD - 11/06/2020 12:20 PM CST Brief MICU Note Date: 11/06/2020 18:45 Code Status: full ICU day: 5 Intubation Day: 5 12 Hour Events (includes major events throughout the day, patient status, significant labs, radiology, consult updates): -MV: FiO2 50 PEEP 5 SpO2 100 - sedation: propofol 25 - pressors: levophed 0.07 - c/w micafungin, ganciclovir - central line placed - will defer elective bronch to another day - BMP, Mg Phos stable, continue to follow Vitals Ventilation / Pressors Sedation / Paralyzation Temp: [36.1 C (97 F)-37.1 C (98.8 F)] Heart Rate (monitor): [65-106] Pulse: [63-101] Resp: [0-17] BP: (77-108)/(61-84) Arterial Line BP: (88-114)/(55-83) MAP (mmHg): [68-90] MAP: [69 mmHg-87 mmHg] Vent mode: PRVC A/C Vt inspiratory (mL): 371 mL Resp (Vent Total): 13 FiO2 (%): 100 % Ve measured (L/min): 5.08 L/min PIP observed (cmH2O): 13 cmH2O Norepinephrine Dose (mcg/kg/min): 0.05 mcg/kg/min Phenylephrine Dose (mcg/kg/min): 0 mcg/kg/min Propofol Dose (mcg/kg/min): 25 mcg/kg/min Plan for the Next 12 Hours (includes anticipated events, complications to watch for, pending labs/radiology/consults): - remove PICC line, send tip for culture - remove midline - possible SBT in AM (hold feeds/sedation in AM) - f/u BMP, Mg, Phos, monitor for refeeding syndrome - f/u repeat blood cultures, fungal cultures - f/u 24 hour urine protein Roberto Gooden M.D. Department of Anesthesiology PGY-1 [facility] Doctor's Number: [id number] Juliann Kwong DO - 11/06/2020 12:07 AM CST MICU Progress Note Date of Service: 11/06/2020 00:07 Reason for ICU admission: acute hypoxic and hypercapnic respiratory failure with ARDS ICU Day: 5 Intubation Day: 5 Code Status: Full Last 24 hour events (major events): - SBT attempted but patient did not follow commands off sedation - plan to place IJ tomorrow and pull other lines - completed ceftriaxone treatment for proteus UTI - GI consulted, no EGD recommended Subjective: Sedated Ventilator Bundle: Sedation/Analgesia + RASS: Propofol Stress ulcer prophylaxis: PPI DVT prophylaxis: SCD's Insulin drip: no Rate Nutrition: Enteral Lines (with dates): PIV: 10/22 PICC: L brachial 10/31 A line: R radial 11/02 Baltazar: 11/04/2020 Intake/Output: Intake/Output Summary (Last 24 hours) at 11/06/2020 0007 Last data filed at 11/05/2020 1800 Gross per 24 hour Intake 1644.7 ml Output 1140 ml Net 504.7 ml Physical Exam: Temp: [35.9 C (96.6 F)-37.8 C (100 F)] Heart Rate (monitor): [68-109] Pulse: [65-106] Resp: [11-17] BP: (90-115)/(68-93) Arterial Line BP: (105-128)/(61-80) MAP (mmHg): [74-101] MAP: [76 mmHg-99 mmHg] Constitutional: intubated and sedated. Severe sarcopenia/cachexia. Extremely malnourished and ill-appearing. HEENT: normocephalic atraumatic Neck: full range of motion Resp: inspiratory crackles bilaterally Cardio: regular rate and rhythm GI: soft; mildly distended; normoactive bowel sounds : Baltazar in place Rectal: not examined MSK: no clubbing, cyanosis. Bilateral hand edema. Sacral ulcer Integ: no rashes Neuro: sedated Labs (pertinent only)/Imaging: reviewed Microbiology: Ucx 10/19- contamination COVID 10/20 and 10/26 Not detected (rapid) Ucx 10/31: proteus BCx 10/31: no organism isolated BCx 11/02: zari albicans BCx 11/04: [id number] COVID 11/02 Assessment/Plan: Tahir Sanches Jr. is a 35 year old male admitted with acute hypoxic and hypercapnic respiratory failure Neuro Bipolar disorder Schizophrenia Hx drug abuse (cocaine, amphetamines, marijuana) Intubated & sedated. -Sedation: Propofol Resp Acute hypoxic and hypercapnic respiratory failure requiring mechanical ventilation 2/2 ARDS Elevated D dimer ?Aspiration pneumonia Bilateral mild to moderate pleural effusions R lung atelectasis Multiple bilateral patchy opacities ?Shift on CXR with severely dilated esophagus Patient continues to require minimal vent settings; however, the patient does not follow commands when the sedation is weaned, so SBT could not be attempted. -Intubated on minimal settings -reattempt SBT -f/u blood cultures Cardiovascular Hypotension- likely 2/2 sedation Patient levophed was discontinued and blood pressures have been in the 90s-100s systolic. Patient isedematous on exam, but with patient's low-normal blood pressures diuresis could drop his blood pressure to the point of requiring more pressors. We will hold off for now. -consider diuresis once hemodynamically stable -EKG, trop FEN/GI Achalasia s/p esophageal botox injection, PEG tube placement (10/27/2020) Concern for PBC Elevated transaminases Elevated alkaline phosphatase Positive AMA Refeeding syndrome Severe protein calorie malnutrition It appears patient's esophagus remains significantly dilated with retention of ingested PO intake with possible mass effect on airway however will await final xray read. Receiving feeds via PEG tube aswell - BMP, Mg, Phos daily and replete lytes as needed - PEG tube for enteral feeds- hold for SBT - consider NGT decompression of esophagus per GI recommendation ID Sepsis 2/2 ?Aspiration pneumonia + Proteus UTI CMV viremia Late latent syphilis Sacral ulcer Has been receiving abx for UTI and strong likelihood that patient had aspiration event given appearance of esophagus on CT/Xray. Elevated viral load on CMV PCR. C/f CMV esophagitis contributing to his achalasia. Will consider GI consult in AM - ganciclovir 225mg IV q12h - follow-up PCP sputum - follow-up LDH -c/w weekly PCN G -f/u cultures -ID following Renal Nephrotic range proteinuria Hematuria Proteus UTI Likely that patient third spaced all administered IVFs due to low oncotic pressure from hypoalbuminemia (severe malnutrition and seems to also have nephrotic range proteinuria). Will administer albuminand monitor hematuria which seems to have resolved. -monitor for hematuria -albumin 25 g, consider redosing Endo No active concerns Other Pancytopenia Unclear if 2/2 sepsis. Has a diff consult from 10/03 concerning for peripheral platelet destruction. DVT prophylaxis: contraindicated 2/2 thrombocytopenia Lines/Catheters: PIV 10/22 PICC 10/31 PEG Prognosis: guarded Code Status: full code End of daily progress note Juliann Fowler DO [facility]: Tahir Sanches Jr. is a 35 year old man with PMH of mood disorder, multiple hospital admissions during which he left AMA, polysubstance use disorder, achalasia s/p botox and PEG, noncompliance with dietary restrictions who pesented after leaving AMA for continued evaluation of presumed achalasia. GI performed EGD with manometry diagnosing achalasia. CTS consulted recommending balloon dilation of esophageal sphincter, GIperformed esophagealBotox injection and PEG tube placement. Multidisciplinary meeting held to establish patient support network and plan for outpatient follow up, however, patient developed refeeding syndrome treated with repletion of phosphorous(IV and Enteral)for multiple days. The patient's hospital course was complicated with urosepsis, requiring pressor support and transfer to the MICU. Patient was stabilized and transferred to the floor, however, patient developed respiratory distress, rapid called, rapidly decompensated and was transferred back to MICU where he was immediately intubated. CT thorax showing bilateral effusions new from prior CT and findings consistent with ARDS and esophageal distension. GI consulted and recommended NGT placement into the esophagus and suction the fluid material and remove NGT afterwards. Several SBTs have been attempted butpatient has failed. MAKER Associated attestation - Omar Lock MD - 11/06/2020 10:43 AM CSTI personally examined the patient on 11/06/[address] Fowler's resident note. I actively participated in the decision-making process. Please see the resident's note for additional details. Tahir Sanches Jr. is a 35 year old male admitted with Septic shock 2/2 zari fungemia Acute hypoxic respiratory failure -- requiring intubation and mechanical ventilation Chronic achalasia Severe protein and calorie malnutrition Zari fungemia PLAN: Bronch today Remove PICC place CVC NGT to LIWS Continue anti fungals Wean vasopressors MAP > 65 mmHg I spent 31 minute(s) personally caring for this critically ill patient on the unit/floor. The patient was critically ill due to Respiratory Failure, Sepsis, Shock/Hemodynamic Instability. I performed the following services: Monitoring and adjustment of ventilator settings Monitoring and adjustment of pressors/treatment of shock Ongoing metabolic management,direct hands-on care of the patient, reviewed imaging studies and reviewed test results, and interpretation of physiologic parameters. Kenton Ventura MD - 11/05/2020 3:40 PM CST INFECTIOUS DISEASES F/U NOTE Interval history: Patient seen and examined, lying in bed on vent. Medications: Current Facility-Administered Medications Medication Dose Route Frequency Last Rate Last Admin ergocalciferol (vitamin D2) (CALCIDOL) 200 mcg/mL (8,000 unit/mL) oral drops 2,000 Units 2,000 Units Oral DAILY lidocaine 1% (PF) (XYLOCAINE) injection 5 mL 5 mL Subcutaneous PRN NaCl 0.9% (NS) injection 10 mL 10 mL Slow IV Push PRN sodium hypochlorite 0.025% (Dakin's) solution Topical BIDPRN Given at 11/05/20 1829 zinc oxide 20 % ointment Topical PRN Given at 11/05/20 182 erythromycin (ILOTYCIN) 5 mg/gram (0.5 %) ophthalmic ointment 0.5 Inch 0.5 Inch Both Eyes QID0.5 Inch at 11/05/202019 ganciclovir (CYTOVENE) 225 mg in NaCl 0.9% (NS) 100 mL 225 mg IV Piggyback Q12H 225 mg at 11/05/20 2019 micafungin (MYCAMINE) 100 mg in NaCl 0.9% (NS) 100 mL MINI-BAG 100 mg IV Piggyback Q24H ABX 100 mg at 11/05/20 1148 NaCl 0.9% (NS) injection 10 mL 10 mL Slow IV Push PRN nicotine (NICODERM) 7 mg/24 hr patch 1 Patch 1 Patch Topical [id number] Sliding Scale Insulin - Lispro (HumaLOG) + Fsbg Testing Subcutaneous Q4H Stopped at 11/05/209900 D5W 0.45% NaCl (1/2NS) IV infusion 1,000 mL 1,000 mL IV Infusion CONTINUOUS 50 mL/hr at 11/05/20 1700 Dose/Rate Verify at 11/05/20 1700 dexMEDEtomidine 400 mcg in 0.9 % NaCl 100 mL (PRECEDEX) RTU IV infusion 0.2-1.5 mcg/kg/hr IV Infusion TITRATE Stopped at 11/03/20 2200 dextrose 50 % in water (D50W) injection 50 mL 50 mL Slow IV Push PRN 50 mL at 11/04/20 0712 glucagon (GLUCAGEN DIAGNOSTIC KIT) injection 1 mg 1 mg Intramuscular PRN NORepinephrine (LEVOPHED) 32 mg in NaCl 0.9% (NS) 250 mL infusion 0.05-1.5 mcg/kg/min IV Infusion TITRATE Stopped at 11/05/20 1828 propofoL IV infusion 5-50 mcg/kg/min IV Infusion TITRATE 6.72 mL/hr at 11/05/202052 25 mcg/kg/min at 11/05/202052 hydrOXYzine (ATARAX) 10 mg/5 mL solution 10 mg 10 mg Oral Q6HPRN 10 mg at 11/02/20 0407 NaCl 0.9% (NS) injection 10 mL 10 mL Slow IV Push PRN calcium carbonate 500 mg RINCON CA/5 mL 500 mg/5 mL (1,250 mg/5 mL) suspension 500 mg 500 mg Enteral BID MEALS 500 mg at 11/05/20 1642 foLIC acid (FOLATE) tablet 1 mg 1 mg Enteral DAILY 1 mg at 11/05/20916 methocarbamol (ROBAXIN) 50 mg/mL oral suspension 1,000 mg 1,000 mg Enteral TID 1,000 mg at 11/05/202019 multivitamin (CENTRUM) solution 15 mL 15 mL Enteral DAILY 15 mL at 11/05/20 09 pantoprazole (PROTONIX) 2 mg/mL oral suspension 40 mg 40 mg Enteral BID 40 mg at 11/05/202019 vitamin B-12 (CYANOCOBALAMIN) tablet 1,000 mcg 1,000 mcg Enteral DAILY 1,000 mcg at 11/05/20916 HYDROcodone-acetaminophen (HYCET) 7.5-325 mg/15 mL solution 7.5 mg 7.5 mg Enteral Q6HPRN 7.5 mg at 11/02/20 023 risperiDONE (RISPERDAL M-TAB) disintegrating tablet 2 mg 2 mg Enteral BID 2 mg at 11/05/202019 thiamine (VITAMIN B1) tablet 100 mg 100 mg Enteral BID 100 mg at 11/05/20 2019 lidocaine (LIDODERM) 5 % (700 mg/patch) patch 1 Patch 1 Patch Topical DAILY Stopped at 11/04/20 0900 Physical Examination: Vitals: 11/05/20 2200 11/05/20 2300 11/06/20 0000 11/06/20 0056 BP: 103/73 103/70 101/73 Pulse: 89 88 81 Resp: 17 13 14 Temp: 36.8 C (98.2 F) 36.7 C (98.1 F) TempSrc: SpO2: 100% Weight: Height: General: Patient is sedated and intubated. Lungs: CTA b/l Cardio: S1, S2 normal; no murmurs GI: abdomen soft; non-tender; non-distended; Extremities: no edema Skin: Bedsore present on the sacrum. Neuro: Not able to evaluate as patient is sedated and intubated. Laboratory: WBC (10*3/L) Date Value 11/04/2020 5.40 HGB (g/dL) Date Value 11/04/2020 8.8 (L) PLT (10*3/L) Date Value 11/04/2020 100 (L) CREATININE (mg/dL) Date Value 11/05/2020 0.31 (L) GLUCOSE (mg/dL) Date Value 11/05/2020 96 ALT(SGPT) (U/L) Date Value 01/10/2019 15 ALTv (U/L) Date Value 11/05/2020 49 AST(SGOT) (U/L) Date Value 11/05/2020 56 (H) ALK PHOS (U/L) Date Value 11/05/2020 241 (H) Microbiology: Blood cultures done on 11/02/2020 growing budding yeast with pseudohyphae Sputum 11/03/2020: Zari tropicalis Urine culture 10/31/2020 growing Proteus 10/31/2020 blood cultures negative 10/17/2020 CSF cultures negative CSF VDRL negative, glucose 46, protein 127, 1 WBC. HIV test negative. Hepatitis B and hepatitis C negative. Radiology: Chest x-ray 11/02/2020 reviewed, CT of the thorax ordered on 11/03/[address] chest abdomen pelvis done on 10/31/2020 with contrast: Bilateral [id number] pleural effusions Bilateral patchy groundglass opacities most prominent in the right upper lobe Partially visualized exophytic sclerotic lesion in the left humerus may represent osteochondroma Distended esophagus, consistent with history of achalasia Ascites, anasarca Cachexia Fluid attenuating structure in the right hemiscrotum moderate to large hydrocele. Assessment: 35-year-old male with history of achalasia, recreational drug use, infectious disease consulted for elevated CMV titers and positive blood cultures for yeast #CMV titers noted to be 359 on 10/13/21 and 23,001 11/02/2020. As patient is malnourished with BMI of 16 would qualify him for being immunocompromised. Recommend starting ganciclovir to 225 mg IV twice daily. Monitor CBC while on the same. We will also test for PCP from the sputum, as having bilateral patchy opacities on CXR. Check LDH #s/p 5 days of antibiotics for Proteus in the urine. #Positive blood culture for yeast likely from old lines. opthalmic exam unremarkable. #severe malnutrition #achalasia, s/p peg tube. Recommendations: -continue ganciclovir to 225 mg iv every 12 hrly -f/u sputum for PCP, repeat bcx. -Continue micafungin -please change picc line and remove midline. -wound care consult, offloading for decubitus ulcer. Thank you for the consult. Case was discussed with attending physician. Kenton Ventura PGY4, ID MAKER Associated attestation - Arline Locke MD - 11/15/2020 4:59 PM SODA MAKER I personally saw and evaluated the patient on this day and agree with the findings as documented by the house registry rn. We discussed the assessments and management plan and I agree with the house registry rn's documentation as written .Marissa Keys MD - 11/05/2020 11:25 AM CST Date of Service: 11/05/2020 12:17 Chief Complaint: Achalasia SUBJECTIVE/ MAJOR EVENTS: Pt was seen and evaluated at bedside. GI was involved in the patient's care up to botox therapy and PEG tube placemen on 10/27/20, however patient developed refeeding syndrome and required aggressive phos repletion. On 10/31/20 patient became hypotensive, tachy, forrester cultured and started on empiric Zosyn and sepsis protocol started, patient was transferred to MICU since he continued to be hypotensive requiring pressors. Urine Cx grew Proteus penneri tx with meropenem. Pressors weaned off, however patientdeveloped worsening respiratory distress s/p intubation. CT thorax showed b/l effusions new comparedto previous CT consistent with ARDS. MICU team is reconsulting GI to discuss potential need for evacuation of esophagus prior to extubation. PHYSICAL EXAM: Temp: [36.3 C (97.3 F)-37.4 C (99.3 F)] Heart Rate (monitor): [68-101] Pulse: [65-101] Resp: [11-23] BP: (100-118)/(73-93) Arterial Line BP: (111-136)/(60-86) MAP (mmHg): [83-101] MAP: [77 mmHg-103 mmHg] Intake/Output Summary (Last 24 hours) at 11/05/2020 1217 Last data filed at 11/05/2020 1100 Gross per 24 hour Intake 1491 ml Output 1545 ml Net -54 ml General: intubated/sedated on pressors Cardiovascular: Regular rate and rhythm, no murmurs; no LE edema. Respiratory: Coarse sounds b/l Abdomen: +BS, soft, non-distended, +PEG tube in place, external bumper loose/able to rotate 360 LABS/IMAGING - REVIEWED CT Thorax w/contrast 11/03/20 IMPRESSION 1. Worsening severe multifocal pneumonia with features suspicious for atypical infection, such as viral. 2. Unchanged moderate layering pleural effusions. 3. Stable appearance of the esophagus, in keeping with the patient's known achalasia. 4. Large volume of upper abdominal ascites and cholelithiasis, unchanged CURRENT MEDICATIONS - REVIEWED ASSESSMENT/PLAN Tahir Sanches Jr. 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 Now cultures growing yeast, patient is on micafungin with pending fungal cx. GI re-consulted for:to discuss potential need for evacuation of esophagus since this could be causing extrinsic compression of the trachea and also need for EGD prior to extubation. Type I Achalasia Severe Malnutrition ARDS -reviewed CT Thorax from 10/31/20 and 11/03/20 with the attending, there is significant dilatation of the esophagus which has also been noted multiple times on upper endoscopy due to patient's end stage achalasia disease. There does not appear to be compression of the trachea. On 11/03/20 the esophagus appears to have some fluid/material which is much less when comparing to 10/31/20 -at this time there is no indication for EGD to evacuate fluid material since the esophagus is dilated due to end stage achalasia and suctioning fluid/food material will not change the form of the dilated esophagus. Achalasia does not cause rigid esophagus and based on imaging there is no concern for compressing of the trachea. -Also performing EGD and trying to evacuate fluid will increase the risk of aspiration since based on previous EGDs patient's entire esophageal wall is covered with material that can easily break off during the procedure with manipulations -recommend NGT placement into the esophagus and suction the fluid material and remove NGT afterwards -once patient is ready to be extubated from MICU/respiratory standpoint, patient's head should be elevated at 30 degrees and post extubation he needs to be NPO for longer period of time to ensure he isalert/awake prior to any PO intake -please see previous GI notes for specific recommendation regarding achalasia management Patient was seen and discussed with Dr. Mcgowan. Please call with questions. GI will sign off at this time Marissa Keys MD Gastroenterology and Hepatology PGY-4 [facility] [place] MAKER Associated attestation - Rell Mcgowan MD - 11/07/2020 8:59 AM CSTI personally examined the patient on 11/05/[address] Keys's note with the following addition(s): I personally reviewed/interpreted the CT thorax images from 10/31/20 and 11/03/20. I personally discussed assessment and recommendations with the MICU team. I actively participated in the decision- making process. Please see the fellow's note for additional details. Rell Mcgowan MD [facility] Division of Gastroenterology and Hepatology Roberto Gooden MD - 11/05/2020 8:31 AM CST Brief MICU Note Date: 11/05/2020 18:46 Code Status: full ICU day: 4 Intubation Day: 4 12 Hour Events (includes major events throughout the day, patient status, significant labs, radiology, consult updates): - SBT attempted, patient not following commands off sedation -MV: FiO2 35 PEEP 5 SpO2 100 - sedation: propofol 25 - pressors: levophed 0.03 - c/w micafungin, repeat blood cultures Q24H - plan to place central line in IJ tomorrow, pull other lines - ganciclovir started per ID recs - ceftriaxone stopped (completed tx for proteus UTI) - BMP, Mg Phos stable, continue to follow - GI consulted, no interventions at this time - family updated Vitals Ventilation / Pressors Sedation / Paralyzation Temp: [35.9 C (96.6 F)-37.8 C (100 F)] Heart Rate (monitor): [68-109] Pulse: [65-106] Resp: [11-15] BP: (90-115)/(68-93) Arterial Line BP: (108-128)/(60-80) MAP (mmHg): [74-101] MAP: [77 mmHg-99 mmHg] Vent mode: PRVC A/C Vt inspiratory (mL): 361 mL Resp (Vent Total): 13 FiO2 (%): 35 % Ve measured (L/min): 4.92 L/min PIP observed (cmH2O): 13 cmH2O Norepinephrine Dose (mcg/kg/min): 0 mcg/kg/min Phenylephrine Dose (mcg/kg/min): 0 mcg/kg/min Propofol Dose (mcg/kg/min): 25 mcg/kg/min Plan for the Next 12 Hours (includes anticipated events, complications to watch for, pending labs/radiology/consults): - SBT in AM (hold feeds/sedation in AM) - f/u BMP, Mg, Phos, monitor for refeeding syndrome - f/u repeat blood cultures, fungal cultures - f/u 24 hour urine protein Roberto Gooden M.D. Department of Anesthesiology PGY-1 [facility] Doctor's Number: [id number] uliann Fowler DO - 11/05/2020 12:04 AM CST MICU Progress Note Date of Service: 11/05/2020 00:05 Reason for ICU admission: acute hypoxic and hypercapnic respiratory failure with ARDS ICU Day: 4 Intubation Day: 4 Code Status: Full Last 24 hour events (major events): - failed SBT attempt, reattempt in AM - no change to ventilator settings - started ganciclovir 225 mg IV q12 - hypoglycemic to < 20, started D5W, SSI, and glucose checks q4h - stopped ceftriaxone Subjective: Sedated Ventilator Bundle: Sedation/Analgesia + RASS: Propofol 25 Stress ulcer prophylaxis: PPI DVT prophylaxis: SCD's Insulin drip: no Rate Nutrition: Enteral Lines (with dates): PIV: 10/22 PICC: L brachial 10/31 A line: R radial 11/02 Baltazar: 11/04/2020 Intake/Output: Intake/Output Summary (Last 24 hours) at 11/05/2020 0005 Last data filed at 11/04/2020 1800 Gross per 24 hour Intake 1411 ml Output 1815 ml Net -404 ml Physical Exam: Temp: [35.3 C (95.5 F)-37 C (98.6 F)] Heart Rate (monitor): [80-105] Pulse: [77-103] Resp: [11-23] BP: (93-128)/(70-97) Arterial Line BP: (86-136)/(58-88) MAP (mmHg): [78-103] MAP: [70 mmHg-104 mmHg] Constitutional: intubated and sedated. Severe sarcopenia/cachexia. Extremely malnourished and ill-appearing. HEENT: normocephalic atraumatic Neck: full range of motion Resp: inspiratory crackles bilaterally Cardio: regular rate and rhythm GI: soft; mildly distended; normoactive bowel sounds : Baltazar in place Rectal: not examined MSK: no clubbing, cyanosis, or edema. Sacral ulcer Integ: no rashes Neuro: sedated Labs (pertinent only)/Imaging: TTE Interpretation Summary A two-dimensional transthoracic echocardiogram with M-mode and Doppler was performed. The study was technically adequate. Compared to prior study, changes are noted. The left ventricular size is normal. Left ventricular systolic function is mild to moderately reduced. Ejection Fraction = 40-45%. There is mild to moderate global hypokinesis of the left ventricle. The right ventricle is mild to moderately dilated. The right ventricular funtion is mildly reduced. There is mild mitral regurgitation. Eccentric posteriorly directed mitral regurgitation jet. Small anterior pericardial effusion. Microbiology: Ucx 10/19- contamination COVID 10/20 and 10/26 Not detected (rapid) BCx 10/31: NG at 24 H Ucx 10/31: proteus COVID 11/02 Assessment/Plan: Tahir Sanches . is a 35 year old male admitted with acute hypoxic and hypercapnic respiratory failure Neuro Bipolar disorder Schizophrenia Hx drug abuse (cocaine, amphetamines, marijuana) Intubated & sedated. Became confused after 0.5 mg ativan on the floor. -Sedation: Propofol Resp Acute hypoxic and hypercapnic respiratory failure requiring mechanical ventilation 2/2 ARDS Elevated D dimer ?Aspiration pneumonia Bilateral mild to moderate pleural effusions R lung atelectasis Multiple bilateral patchy opacities ?Shift on CXR with severely dilated esophagus CT thorax with contrast showed bilateral pleural effusions which were new from CT 2 months ago as well as multiple bilateral patchy opacities and unchanged prominently distended thoracic esophagus containing large amount of ingested material, no evidence of pneumomediastinum to suggest perforation. Concern for extrinsic airway compression by esophagus. Considering NG tube to suction vs GI consult foresophageal disimpaction. suction to allow for release of impingement of the trachea to assist in extubation as his blood gases pre and post intubation seem to imply respiratory distress is not an alveolar issue but rather obstructive. SBT in AM on precedex. -Intubated on minimal settings -SBT in AM - narrow to ceftriaxone -f/u cultures -CTPE held -lasix 40 mg IV x 1, reassess in AM and redose. Cardiovascular Hypotension- likely 2/2 sedation TTE to evaluate for any signs of high output heart failure that may have resulted in CT findings. Echo is somewhat different from previous as he now has interval decrease in his LV function and increase in his R sided pressures. -levophed: wean as tolerated -f/u TTE -consider diuresis once hemodynamically stable -EKG, trop FEN/GI Achalasia s/p esophageal botox injection, PEG tube placement (10/27/2020) Concern for PBC Elevated transaminases Elevated alkaline phosphatase Positive AMA Refeeding syndrome Severe protein calorie malnutrition It appears patient's esophagus remains significantly dilated with retention of ingested PO intake with possible mass effect on airway however will await final xray read. Receiving feeds via PEG tube aswell -BMP, Mg, Phos daily and replete lytes as needed -PEG tube for enteral feeds- hold for SBT ID Sepsis 2/2 ?Aspiration pneumonia + Proteus UTI CMV viremia Late latent syphilis Sacral ulcer Has been receiving abx for UTI and strong likelihood that patient had aspiration event given appearance of esophagus on CT/Xray. Elevated viral load on CMV PCR. C/f CMV esophagitis contributing to his achalasia. Will consider GI consult in AM - ganciclovir 225mg IV q12h - follow-up PCP sputum - follow-up LDH -c/w weekly PCN G -f/u cultures -ID following Renal Nephrotic range proteinuria Hematuria Proteus UTI Likely that patient third spaced all administered IVFs due to low oncotic pressure from hypoalbuminemia (severe malnutrition and seems to also have nephrotic range proteinuria). Will administer albuminand monitor hematuria which seems to have resolved. -monitor for hematuria -albumin 25 g, consider redosing Endo No active concerns Other Pancytopenia Unclear if 2/2 sepsis. Has a diff consult from 10/03 concerning for peripheral platelet destruction. DVT prophylaxis: contraindicated 2/2 thrombocytopenia Lines/Catheters: PIV 10/22 PICC 10/31 PEG Prognosis: guarded Code Status: full code End of daily progress note Juliann Fowler DO Department of Internal Medicine PGY-1, [facility] Team Hospital Course: Tahir Powerdmitry Bahena. is a 35 year old man with PMH of mood disorder, multiple hospital admissions during which he left AMA, polysubstance use disorder, achalasia s/p botox and PEG, noncompliance with dietary restrictions who pesented after leaving AMA for continued evaluation of presumed achalasia. GI performed EGD with manometry diagnosing achalasia on 10/21. CTS consulted recommending balloon dilation of esophageal sphincter, GIperformed esophagealBotox injection and PEG tube placement on 10/27/2020, with no complications. Multidisciplinary meeting held to establish patient support network and plan for outpatient follow up.Patient developed refeeding syndrome and required aggressive repletion of phosphorous(IV and Enteral)for multiple days. On 10/31/2020, patientbecamehypotensive and tachycardic, forrester cultured, and empiric Zosyn started for suspected Pyelonephritis/Urosepsis basedon patient complaint of dysuria and UA concerning for infection. Sepsis protocol started and patientbolused 30 ml/kg, with persistent hypotension and new onset tiredness/mild lethargy. Patient continued to be hypotensive requiring pressorsand was subsequently transferred to MICU. Upon arrival to [facility],patient started on broad spectrum antibiotics with pressor support.Lab findings significant for drop in hemoglobin to 6.2 (given 1U pRBCs), CT Thorax/A&P ordered to evaluate for source of potential bleed. Blood cultures NGTD @24 hours, Urine Cx growing >100,000 proteus penneri, currently on Merrem. Pressors weaned off and patient remained afebrile and MAPs >65, deemed stable for transfer to flooron 11/01/2020. Overnight, patient with worsening respiratory distress, rapid called, he was placed on NRB and given IV lasix due to concern for volume overload and 0.5 mg ativan due to concern for component of anxiety. Despite tachypnea, patient had respiratory acidosis. He rapidly decompensated and was transferred back to MICU where he was immediately intubated, became hypotensive post-intubation and started on pressors. CT thorax showing bilateral effusions new from prior CT and findings consistent with ARDS. Esophagus was also noted to be prominently distended, concern for esophageal d istension and possible tracheal compression being another factor related to patient's initial increased work of breathing. On SBT, became tachypneic once again and remained intubated. Considering evacuation of esophagus as this could be causing extrinsic compression of the trachea MAKER Associated attestation - Moreno Nelson Jr., MD - 11/05/2020 3:27 PM CSTI personally examined the patient on 11/[address] Fowler's resident note as written . I actively participated in the decision-making process. Please see the resident's note for additional details. Roberto Gooden MD - 11/04/2020 12:25 PM CST Brief MICU Note Date: 11/04/2020 18:45 Code Status: full ICU day: 2 Intubation Day: 2 Tahir Sanches Jr. is a 35 year old male admitted with acute hypoxic and hypercapnic respiratory failure 12 Hour Events (includes major events throughout the day, patient status, significant labs, radiology, consult updates): - SBT attempted, pulled low tidal volumes, weak overall respiratory effort -MV: FiO2 35 PEEP 5 SpO2 100 - sedation: propofol - pressors: levophed 0.3 - blood culture 2/2 positive for yeast, budding with pseudohyphae - added micafungin, changed lines/baltazar, obtain repeat blood cultures Q24H (vascular will change PICC line if fungemia does not resolve with treatment) - ophtho recs: no evidence of endophthalmitis - 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), level increased from 359 to 23,560, ID notified, repeat CT thorax, repeat CMV PCR, ID recs pending - c/w ceftriaxone - started tube feeds, BMP, Mg, Phos Q12H Vitals Ventilation / Pressors Sedation / Paralyzation Temp: [34.9 C (94.8 F)-37 C (98.6 F)] Heart Rate (monitor): [78-105] Pulse: [77-103] Resp: [10-23] BP: (93-128)/(70-97) Arterial Line BP: (86-136)/(58-88) MAP (mmHg): [78-103] MAP: [70 mmHg-104 mmHg] Vent mode: PRVC A/C Vt inspiratory (mL): 382 mL Resp (Vent Total): 17 FiO2 (%): 35 % Ve measured (L/min): 6.18 L/min PIP observed (cmH2O): 9 cmH2O Norepinephrine Dose (mcg/kg/min): 0.6 mcg/kg/min Phenylephrine Dose (mcg/kg/min): 0 mcg/kg/min Propofol Dose (mcg/kg/min): 25 mcg/kg/min Plan for the Next 12 Hours (includes anticipated events, complications to watch for, pending labs/radiology/consults): - SBT in AM (hold feeds/sedation in AM) - f/u BMP, Mg, Phos, monitor for refeeding syndrome - f/u low blood glucose - f/u repeat blood cultures, fungal cultures - f/u ID recs Roberto Gooden M.D. Department of Anesthesiology PGY-1 [facility] Doctor's Number: [id number] hJacky armando RN - 11/04/2020 8:40 AM CSTSummary: Gay guerrero - [phone] requesting update when able Care Management Continued Stay Assessment LOS Day: 16 Estimated /Planned Discharge Date: ibeth 11/11/20 MICU male 35 year old Date CM/SW last Face to Face completed with patient/family: 11/04/18 Funding source: Payor: MEDICAID PENDING / Plan: MEDICAID PENDING / Product Type: Pending / Insurance DC communications planner: patient, mother, father and sister Gay guerrero - [phone]; Lisa renesin - [phone]; Shantel Herman mother - [phone]; Tristan Sanches (Father) [phone] PCP:PATIENT DOES NOT HAVE A PCP Patient/Family/MPOA/Caregiver Engaged with Transitional Care Plan: yes Patient/Family/MPOA/Caregiver concurs with proposed discharge plan: yes Name, Relationship to Patient and contact number of individual acting on behalf of the patient: patient, mother, father and sister Gay guerrero - [phone]; Lisa renesin -[phone]; Shantel Sanches - mother - [phone]; Tristan Sanches Sr. (Father) [phone] Chief Complaint/Admitting Dx:Achalasia Hospital Problems: Achalasia Summary of hospital course: Tahir Sanches Jr. is a 35 year old man with PMH of mood disorder,multiple hospital admissions during which he left AMA,polysubstance use disorder, achalasia s/p botox and PEG, noncompliance with dietary restrictions who pesented after leaving AMA for continued evaluation of presumed achalasia. GIperformedEGD with manometry diagnosing achalasia on 10/21. CTS consulted recommending balloon dilation of esophageal sphincter, GIperformed esophagealBotox injection and PEG tube placementon 10/27/2020, with no complications. Multidisciplinary meeting held to establish patient support netwo rk and plan for outpatient follow up.Patient developed refeeding syndrome and required aggressive repletion of phosphorous(IV and Enteral)for multiple days. On 10/31/2020,patientbecamehypotensive and tachycardic, forrester cultured, and empiric Zosyn started for suspected Pyelonephritis/Urosepsis based on patient complaint of dysuria and UA concerning for infection. Sepsis protocol started and patient bolused 30 ml/kg, with persistent hypotension and new onset tiredness/mild lethargy. Patient continued to be hypotensive requiring pressorsand was subsequently transferred to MICU. Upon arrival to MICU,patient started on broad spectrum antibiotics with pressor support.Lab findings significant for drop in hemoglobin to 6.2 (given 1U pRBCs), CT Thorax/A&P ordered to evaluate for source of potential bleed. Blood cultures NGTD @24 hours, Urine Cx growing >100,000 proteus penneri, currently on Merrem. Pressors weaned off and patient remainedafebrile and MAPs >65, deemed stable fortransfer to flooron 11/01/2020. Overnight, patient with worsening respiratory distress, rapid called,he was placed on NRB and given IV lasix due to concern for volume overload and 0.5 mg ativan due to concern for component of anxiety. Despite tachypnea, patient had respiratory acidosis. He rapidly decompensated and was transferred back to MICU where he was immediately intubated, became hypotensive post-intubation and started on pressors. CT thorax showing bilateral effusions new from prior CT and findings consistent with ARDS. Esophagus was also noted to be prominently distended, concern for esophageal distension and possible tracheal compression being another factor related to patient's initialincreased work of breathing. On SBT, became tachypneic once again and remained intubated. Considering evacuation of esophagus as this could be causing extrinsic compression of the trachea Last 24 hour events (major events): - Failed attempt at extubation. Became tachypneic and hypocapnic - Antibiotics narrowed to rocephin - Considering NG tube to suction vs GI consult for esophageal disimpaction - Good urine output: 20mEq IV lasix x1 redosed CM/SW Interventions/Resources provided: 10/20 - Initial screening and initial discharge plan established,SFA completed, discharge planning initiated, 211 information to call for food stamps, [facility] referral, PAP for feeds submitted, IHC and Casebook applications given. 1 - CM working on PAP for dietary needs 10/30 - CM follow up with patient's Invega injections, will need to fax D'c Summary to [phone] 11/04 - touch base with sister, no concerns at this time other than requesting update CM/SW Interventions/Resources still needed: Pending progression of care, follow up with [facility] once patient is extubated, family training pending on patient's needs in order to return home. Anticipated Discharge Destination: Home If DC to home, who will support patient: family Anticipated DME needs: TBD Referrals sent: no If no, why/when will referral be sent:: TBD Has patient been accepted: not applicable Revised plan if not accepted: What is the clinical care happening right now that must be done in the hospital and only the hospital: I&S , Levo 0.6, SBT today? -Intubated on minimal settings -SBT in AM - narrow to ceftriaxone -f/u cultures -CTPE held -lasix 40 mg IV x 1, reassess in AM and redose. -can consider suctioning dilated upper portion of esophagus in an attempt to evacuate contents Opto Consult for possible endophthalmitis JOSE LUIS Masters, RN Director Global Development [email or web address] O:[phone] F:[phone] Case Management Angie Teresa Adult Inpatient Pager for weekends and holidays [phone] ataly Aguirre, PT - 11/04/2020 7:13 AM CST11/04/2020 7:13 AM Physical Therapy Note Chart reviewed. Patient remains intubated and sedated. Will continue to hold PT at this time and monitor patient's medical course while in house. Patient will be followed by physical therapy, however, this therapist may not be primary therapist[place] [phone] for questions or concerns during week day coverage. Nataly Aguirre PT, DPT, CWS Pager: [phone] aKimberly damon OT - 11/04/2020 7:10 AM CST11/04/2020 0710 OCCUPATIONAL THERAPY NOTE: Consult received. Patient remains intubated and sedated. Will continue to hold OT at this time and monitor patient's medical course while in house. TRISTIAN Lorenz, OTD, C/NDT Pager [phone] MAKER Brooks Wolf DO - 11/04/2020 3:25 AM CST MICU Progress Note Date of Service: 11/04/2020 03:26 Reason for ICU admission: acute hypoxic and hypercapnic respiratory failure with ARDS ICU Day: 3 Intubation Day: 3 Code Status: Full Last 24 hour events (major events): - Failed attempt at extubation. Became tachypneic and hypocapnic - Antibiotics narrowed to rocephin - Considering NG tube to suction vs GI consult for esophageal disimpaction - Good urine output: 20mEq IV lasix x1 redosed Subjective: Sedated Ventilator Bundle: Sedation/Analgesia + RASS: Propofol 35 Stress ulcer prophylaxis: PPI DVT prophylaxis: SCD's Insulin drip: no Rate Nutrition: Enteral - held due to SBT Lines (with dates): PIV, PICC 10/31, A line 11/02, Baltazar: 11/02/2020 Intake/Output: Intake/Output Summary (Last 24 hours) at 11/04/2020 0326 Last data filed at 11/04/2020 0200 Gross per 24 hour Intake 1158.5 ml Output 1040 ml Net 118.5 ml Physical Exam: Temp: [34.9 C (94.8 F)-36.7 C (98.1 F)] Heart Rate (monitor): [69-94] Pulse: [65-92] Resp: [10-21] BP: (90-113)/(67-94) Arterial Line BP: (95-114)/(58-78) MAP (mmHg): [75-101] MAP: [70 mmHg-93 mmHg] Constitutional: intubated and sedated. Severe sarcopenia/cachexia. Extremely malnourished and ill-appearing. HEENT: normocephalic atraumatic Neck: full range of motion Resp: inspiratory crackles bilaterally Cardio: regular rate and rhythm GI: soft; mildly distended; normoactive bowel sounds : Baltazar in place Rectal: not examined MSK: no clubbing, cyanosis, or edema. Sacral ulcer Integ: no rashes Neuro: sedated Labs (pertinent only)/Imaging: Recent Labs 11/01/20 0448 11/01/20 1045 11/02/20 0407 11/02/20 0737 WBC 2.50* 2.72* 1.57* 3.69* HGB 9.0* 8.8* 9.2* 10.0* HCT 26.2* 25.9* 26.4* 28.8* PLT 42* 50* 43* 61* MCV 82.4 81.7 81.7 81.1* MONOPCT 5.6 -- 8.3 6.0 Recent Labs 11/01/20 0448 11/02/20 0407 11/02/20 0736 NA 135 137 138 K 4.1 3.7 4.1 CL 106 108 108 TCO2 29 31 33* BUN 13 18 18 CREAT 0.22* 0.20* 0.22* GLU 67* 156* 154* Recent Labs 10/31/20 1501 11/01/20 0448 11/01/20 1045 11/02/20 0407 11/02/20 0736 ALKPHOS 313* 345* -- 334* 329* BILIT 0.5 1.1 -- 0.6 0.5 BILIUNCON 0.6 -- -- -- 0.5 TPRO 3.6* 4.1* -- 4.3* 4.5* ALB 1.4* 1.6* -- 1.7* 1.7* ALT 70* 59* -- 62* 62* AST 58* 58* -- 59* 77* PTINR 1.2 -- 1.2 -- 1.1 Xr Chest 1 Vw Result Date: 11/02/2020 Interval intubation with endotracheal tube tip projects 3.47 m above the geno. Bilateral patchy lung opacities suggest ARDS. Preliminary Report Dictated by Resident: Sienna Ivy MD., have reviewed this study and agree with the above report. Xr Chest 1 Vw Result Date: 11/02/2020 Interval significant worsening in bilateral hazy opacities concerning for ARDS. Preliminary Report Dictated by Resident: Sienna Ivy MD., have reviewed this study and agree with the above report. Us Abdomen Complete Result Date: 11/01/2020 Unremarkable sonographic appearance of the liver and kidneys. No evidence of intrahepatic or extrahepatic biliary ductal dilatation. No focal liver lesions. Distended gallbladder with echogenic sludgeand no definite shadowing stones. Minimal mural thickening with negative sonographic Calle sign. Findings are unlikely to represent acute cholecystitis. Recommend follow-up HIDA scan as clinically indicated. Large volume of upper abdominal ascites. Mildly thickened small bowel loops in the upper abdomen can be reactive or represent enteritis. Preliminary Report Dictated by Resident: Sienna Walker MD., have reviewed this study and agree with the above report. Microbiology: Ucx 10/19- contamination COVID 10/20 and 10/26 Not detected (rapid) BCx 10/31: NG at 24 H Ucx 10/31: proteus COVID 11/02 Assessment/Plan: Tahir Sanches Jr. is a 35 year old male admitted with acute hypoxic and hypercapnic respiratory failure Neuro Bipolar disorder Schizophrenia Hx drug abuse (cocaine, amphetamines, marijuana) Intubated & sedated. Became confused after 0.5 mg ativan on the floor. -Sedation: Propofol Resp Acute hypoxic and hypercapnic respiratory failure requiring mechanical ventilation 2/2 ARDS Elevated D dimer ?Aspiration pneumonia Bilateral mild to moderate pleural effusions R lung atelectasis Multiple bilateral patchy opacities ?Shift on CXR with severely dilated esophagus CT thorax with contrast showed bilateral pleural effusions which were new from CT 2 months ago as well as multiple bilateral patchy opacities and unchanged prominently distended thoracic esophagus containing large amount of ingested material, no evidence of pneumomediastinum to suggest perforation. Concern for extrinsic airway compression by esophagus. Considering NG tube to suction vs GI consult foresophageal disimpaction. suction to allow for release of impingement of the trachea to assist in extubation as his blood gases pre and post intubation seem to imply respiratory distress is not an alveolar issue but rather obstructive. SBT in AM on precedex. -Intubated on minimal settings -SBT in AM - narrow to ceftriaxone -f/u cultures -CTPE held -lasix 40 mg IV x 1, reassess in AM and redose. -can consider suctioning dilated upper portion of esophagus in an attempt to evacuate contents Cardiovascular Hypotension- likely 2/2 sedation TTE to evaluate for any signs of high output heart failure that may have resulted in CT findings. Echo is somewhat different from previous as he now has interval decrease in his LV function and increase in his R sided pressures. -levophed: wean as tolerated -f/u TTE -consider diuresis once hemodynamically stable -EKG, trop FEN/GI Achalasia s/p esophageal botox injection, PEG tube placement (10/27/2020) Concern for PBC Elevated transaminases Elevated alkaline phosphatase Positive AMA Refeeding syndrome Severe protein calorie malnutrition It appears patient's esophagus remains significantly dilated with retention of ingested PO intake with possible mass effect on airway however will await final xray read. Receiving feeds via PEG tube aswell -BMP, Mg, Phos daily and replete lytes as needed -PEG tube for enteral feeds- hold for SBT ID Sepsis 2/2 ?Aspiration pneumonia + Proteus UTI CMV viremia Late latent syphilis Sacral ulcer Has been receiving abx for UTI and strong likelihood that patient had aspiration event given appearance of esophagus on CT/Xray. Elevated viral load on CMV PCR. C/f CMV esophagitis contributing to his achalasia. Will consider GI consult in AM -c/w weekly PCN G -f/u cultures -c/w ceftriaxone Renal Nephrotic range proteinuria Hematuria Proteus UTI Likely that patient third spaced all administered IVFs due to low oncotic pressure from hypoalbuminemia (severe malnutrition and seems to also have nephrotic range proteinuria). Will administer albuminand monitor hematuria which seems to have resolved. -monitor for hematuria -tx UTI as above -albumin 25 g, consider redosing Endo No active concerns Other Pancytopenia Unclear if 2/2 sepsis. Has a diff consult from 10/03 concerning for peripheral platelet destruction. -f/u diff consult from 10/31 DVT prophylaxis: contraindicated 2/2 thrombocytopenia Lines/Catheters: PIV 10/22 PICC 10/31 PEG Prognosis: guarded Code Status: full code Brooks Wolf DO PGY2 Internal Medicine [place] Team Hospital Course: Tahir Sanches Jr. is a 35 year old man with PMH of mood disorder, multiple hospital admissions during which he left A, polysubstance use disorder, achalasia s/p botox and PEG, noncompliance with dietary restrictions who pesented after leaving A for continued evaluation of presumed achalasia. GI performed EGD with manometry diagnosing achalasia on 10/21. CTS consulted recommending balloon dilation of esophageal sphincter, GIperformed esophagealBotox injection and PEG tube placement on 10/27/2020, with no complications. Multidisciplinary meeting held to establish patient support network and plan for outpatient follow up.Patient developed refeeding syndrome and required aggressive repletion of phosphorous(IV and Enteral)for multiple days. On 10/31/2020, patientbecamehypotensive and tachycardic, forrester cultured, and empiric Zosyn started for suspected Pyelonephritis/Urosepsis basedon patient complaint of dysuria and UA concerning for infection. Sepsis protocol started and patientbolused 30 ml/kg, with persistent hypotension and new onset tiredness/mild lethargy. Patient continued to be hypotensive requiring pressorsand was subsequently transferred to MICU. Upon arrival to TIM U,patient started on broad spectrum antibiotics with pressor support.Lab findings significant for drop in hemoglobin to 6.2 (given 1U pRBCs), CT Thorax/A&P ordered to evaluate for source of potential bleed. Blood cultures NGTD @24 hours, Urine Cx growing >100,000 proteus penneri, currently on Merrem. Pressors weaned off and patient remained afebrile and MAPs >65, deemed stable for transfer to flooron 11/01/2020. Overnight, patient with worsening respiratory distress, rapid called, he was placed on NRB and given IV lasix due to concern for volume overload and 0.5 mg ativan due to concern for component of anxiety. Despite tachypnea, patient had respiratory acidosis. He rapidly decompensated and was transferred back to MICU where he was immediately intubated, became hypotensive post-intubation and started on pressors. CT thorax showing bilateral effusions new from prior CT and findings consistent with ARDS. Esophagus was also noted to be prominently distended, concern for esophageal d istension and possible tracheal compression being another factor related to patient's initial increased work of breathing. On SBT, became tachypneic once again and remained intubated. Considering evacuation of esophagus as this could be causing extrinsic compression of the trachea MAKER Associated attestation - Moreno Nelson Jr., MD - 11/04/2020 3:33 PM CSTI personally examined the patient on 11/[address] Wolf's resident note as written . I actively participated in the decision-making process. Please see the resident's note for additional details. Kandace Sexton - 11/03/2020 4:23 PM CSTChaplain visited with the patient on rounds. Prayer and presence were provided. The patient was int/sed at the time of the visit. Family was not present. Organic Chemistry Professor remains available to provide pastoral care if needed. Chaplain Shayna Sexton, [facility] Department of Pastoral Care Office: [phone] aKimberly damon OT - 11/03/2020 7:15 AM CST11/03/2020 0715 OCCUPATIONAL THERAPY NOTE: Consult received. Patient intubated and sedated. Will hold OT at this time and continue to monitor patient's medical course while in house. Xander Snyder, OTR, OTD, C/NDT Pager [phone] ataly Aguirre, PT - 11/03/2020 7:15 AM CST11/03/2020 7:15 AM Physical Therapy Note Chart reviewed. Patient intubated and sedated at this time. PT will hold and follow up another time. Thank you. Patient will be followed by physical therapy, however, this therapist may not be primary therapist[place] [phone] for questions or concerns during week day coverage. Nataly Aguirre PT, DPT, CWS Pager: [phone] oberto Gooden MD - 11/03/2020 6:30 AM CST Brief MICU Note Date: 11/03/2020 18:37 Code Status: full ICU day: 2 Intubation Day: 2 Tahir Sanches Jr. 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 Ejection Fraction = 40-45% (previous EF on 10/03/2020 showed EF 50-55%) - family updated Vitals Ventilation / Pressors Sedation / Paralyzation Temp: [35.3 C (95.5 F)-37 C (98.6 F)] Heart Rate (monitor): [69-102] Pulse: [65-101] Resp: [12-21] BP: (90-164)/(56-101) Arterial Line BP: (83-115)/(58-78) MAP (mmHg): [69-118] MAP: [65 mmHg-93 mmHg] Vent mode: PRVC A/C Vt inspiratory (mL): 374 mL Resp (Vent Total): 13 FiO2 (%): 35 % Ve measured (L/min): 3.21 L/min PIP observed (cmH2O): 13 cmH2O Norepinephrine Dose (mcg/kg/min): 0.4 mcg/kg/min Phenylephrine Dose (mcg/kg/min): 0 mcg/kg/min Propofol Dose (mcg/kg/min): 25 mcg/kg/min Plan for the Next 12 Hours (includes anticipated events, complications to watch for, pending labs/radiology/consults): - follow up repeat ABG to see if respiratory alkalosis resolves - SBT in AM - consider speech eval (after extubation) - consider palliative care consult for symptom management (after extubation) Roberto Gooden M.D. Department of Anesthesiology PGY-1 [facility] Doctor's Number: [id number] Alisa Turcios DO - 11/03/2020 12:25 AM CST MICU Progress Note Date of Service: 11/03/2020 00:30 Reason for ICU admission: acute hypoxic and hypercapnic respiratory failure with ARDS ICU Day: 2 Intubation Day: 2 Code Status: Full Last 24 hour events (major events): - readmitted to MICU from floor - intubated, post intubation ABG (pH 7.45, pCO2 39) showed resolved respiratory acidosis - SBT attempted, however patient became tachypneic, ABG with PCO2 of 29 - US abd showed ascites - CXR read: bilateral patchy lung infiltrates, suggestive of ARDS - CT/PE held - c/w meropenem for aspiration/proteus UTI - family updated Subjective: Sedated Ventilator Bundle: Sedation/Analgesia + RASS: Propofol 35 Stress ulcer prophylaxis: PPI DVT prophylaxis: SCD's Insulin drip: no Rate Nutrition: Enteral - held due to SBT Lines (with dates): PIV, PICC 10/31, A line 11/02, Baltazar: 11/02/2020 Intake/Output: Intake/Output Summary (Last 24 hours) at 11/03/2020 0030 Last data filed at 11/02/2020 2200 Gross per 24 hour Intake 676.5 ml Output 1428 ml Net -751.5 ml Physical Exam: Temp: [35.1 C (95.2 F)-37 C (98.6 F)] Heart Rate (monitor): [69-130] Pulse: [68-130] Resp: [12-30] BP: (43-164)/(29-151) Arterial Line BP: (109-138)/(74-98) MAP (mmHg): [36-157] MAP: [86 mmHg-114 mmHg] Constitutional: intubated and sedated. Severe sarcopenia/cachexia. Extremely malnourished and ill-appearing. HEENT: normocephalic atraumatic Neck: full range of motion Resp: inspiratory crackles bilaterally Cardio: regular rate and rhythm GI: soft; mildly distended; normoactive bowel sounds : Baltazar in place Rectal: not examined MSK: no clubbing, cyanosis, or edema. Sacral ulcer Integ: no rashes Neuro: sedated Labs (pertinent only)/Imaging: Recent Labs 11/01/20 0448 11/01/20 1045 11/02/20 0407 11/02/20 0737 WBC 2.50* 2.72* 1.57* 3.69* HGB 9.0* 8.8* 9.2* 10.0* HCT 26.2* 25.9* 26.4* 28.8* PLT 42* 50* 43* 61* MCV 82.4 81.7 81.7 81.1* MONOPCT 5.6 -- 8.3 6.0 Recent Labs 11/01/20 0448 11/02/20 0407 11/02/20 0736 NA 135 137 138 K 4.1 3.7 4.1 CL 106 108 108 TCO2 29 31 33* BUN 13 18 18 CREAT 0.22* 0.20* 0.22* GLU 67* 156* 154* Recent Labs 10/31/20 1501 11/01/20 0448 11/01/20 1045 11/02/20 0407 11/02/20 0736 ALKPHOS 313* 345* -- 334* 329* BILIT 0.5 1.1 -- 0.6 0.5 BILIUNCON 0.6 -- -- -- 0.5 TPRO 3.6* 4.1* -- 4.3* 4.5* ALB 1.4* 1.6* -- 1.7* 1.7* ALT 70* 59* -- 62* 62* AST 58* 58* -- 59* 77* PTINR 1.2 -- 1.2 -- 1.1 Xr Chest 1 Vw Result Date: 11/02/2020 Interval intubation with endotracheal tube tip projects 3.47 m above the geno. Bilateral patchy lung opacities suggest ARDS. Preliminary Report Dictated by Resident: Sienna Ivy MD., have reviewed this study and agree with the above report. Xr Chest 1 Vw Result Date: 11/02/2020 Interval significant worsening in bilateral hazy opacities concerning for ARDS. Preliminary Report Dictated by Resident: Sienna Ivy MD., have reviewed this study and agree with the above report. Us Abdomen Complete Result Date: 11/01/2020 Unremarkable sonographic appearance of the liver and kidneys. No evidence of intrahepatic or extrahepatic biliary ductal dilatation. No focal liver lesions. Distended gallbladder with echogenic sludgeand no definite shadowing stones. Minimal mural thickening with negative sonographic Calle sign. Findings are unlikely to represent acute cholecystitis. Recommend follow-up HIDA scan as clinically indicated. Large volume of upper abdominal ascites. Mildly thickened small bowel loops in the upper abdomen can be reactive or represent enteritis. Preliminary Report Dictated by Resident: Sienna Walker MD., have reviewed this study and agree with the above report. Microbiology: Ucx 10/19- contamination COVID 10/20 and 10/26 Not detected (rapid) BCx 10/31: NG at 24 H Ucx 10/31: proteus COVID 11/02 Assessment/Plan: Tahir Sanches Jr. is a 35 year old male admitted with acute hypoxic and hypercapnic respiratory failure Neuro Bipolar disorder Schizophrenia Hx drug abuse (cocaine, amphetamines, marijuana) Intubated & sedated. Became confused after 0.5 mg ativan on the floor. -Sedation: Propofol Resp Acute hypoxic and hypercapnic respiratory failure requiring mechanical ventilation 2/2 ARDS Elevated D dimer ?Aspiration pneumonia Bilateral mild to moderate pleural effusions R lung atelectasis Multiple bilateral patchy opacities ?Shift on CXR with severely dilated esophagus CT thorax with contrast done yesterday showed bilateral pleural effusions which were new from CT 2 months ago as well as multiple bilateral patchy opacities and unchanged prominently distended thoracicesophagus containing large amount of ingested material, no evidence of pneumomediastinum to suggest perforation. Concern for extrinsic airway compression by esophagus. Has been having intermittent fevers and has been on meropenem (MRSA screen negative). On the floor became tachypneic with increased work of breathing and was transferred to MICU for intubation. Had been receiving IVFs previously with low albumin, unclear if this resulted in third spacing. Will order TTE to evaluate for any signs of high output heart failure that may have resulted in CT findings. Tachypneic on SBT, will reattempt in AM. -Intubated on minimal settings -SBT in AM -c/w meropenem -f/u cultures -CTPE held -TTE -lasix 40 mg IV x 1, reassess in AM and redose. -can consider suctioning dilated upper portion of esophagus in an attempt to evacuate contents Cardiovascular Hypotension- likely 2/2 sedation -levophed: wean as tolerated -f/u TTE -consider diuresis once hemodynamically stable -EKG, trop FEN/GI Achalasia s/p esophageal botox injection, PEG tube placement (10/27/2020) Concern for PBC Elevated transaminases Elevated alkaline phosphatase Positive AMA Refeeding syndrome Severe protein calorie malnutrition It appears patient's esophagus remains significantly dilated with retention of ingested PO intake with possible mass effect on airway however will await final xray read. Receiving feeds via PEG tube aswell -BMP, Mg, Phos daily and replete lytes as needed -PEG tube for enteral feeds- hold for SBT ID Sepsis 2/2 ?Aspiration pneumonia + Proteus UTI CMV viremia Late latent syphilis Sacral ulcer Currently hypotensive and pressor dependent however this only developed after sedation. Has been receiving abx for UTI and strong likelihood that patient had aspiration event given appearance of esophagus on CT/Xray. -c/w weekly PCN G -f/u cultures -c/w meropenem -f/u CMV PCR Renal Nephrotic range proteinuria Hematuria Proteus UTI Likely that patient third spaced all administered IVFs due to low oncotic pressure from hypoalbuminemia (severe malnutrition and seems to also have nephrotic range proteinuria). Will administer albuminand monitor hematuria which seems to have resolved. -monitor for hematuria -tx UTI as above -albumin 25 g, consider redosing Endo No active concerns Other Pancytopenia Unclear if 2/2 sepsis. Has a diff consult from 10/03 concerning for peripheral platelet destruction. -f/u diff consult from 10/31 DVT prophylaxis: contraindicated 2/2 thrombocytopenia Lines/Catheters: PIV 10/22 PICC 10/31 PEG Prognosis: guarded Code Status: full code Alisa Otoole DO Hospital Course: Tahir Sanches Jr. is a 35 year old man with PMH of mood disorder, multiple hospital admissions during which he left AMA, polysubstance use disorder, achalasia s/p botox and PEG, noncompliance with dietary restrictions who pesented after leaving AMA for continued evaluation of presumed achalasia. GI performed EGD with manometry diagnosing achalasia on 10/21. CTS consulted recommending balloon dilation of esophageal sphincter, GIperformed esophagealBotox injection and PEG tube placement on 10/27/2020, with no complications. Multidisciplinary meeting held to establish patient support network and plan for outpatient follow up.Patient developed refeeding syndrome and required aggressive repletion of phosphorous(IV and Enteral)for multiple days. On 10/31/2020, patientbecamehypotensive and tachycardic, forrester cultured, and empiric Zosyn started for suspected Pyelonephritis/Urosepsis basedon patient complaint of dysuria and UA concerning for infection. Sepsis protocol started and patientbolused 30 ml/kg, with persistent hypotension and new onset tiredness/mild lethargy. Patient continued to be hypotensive requiring pressorsand was subsequently transferred to MICU. Upon arrival to [facility],patient started on broad spectrum antibiotics with pressor support.Lab findings significant for drop in hemoglobin to 6.2 (given 1U pRBCs), CT Thorax/A&P ordered to evaluate for source of potential bleed. Blood cultures NGTD @24 hours, Urine Cx growing >100,000 proteus penneri, currently on Merrem. Pressors weaned off and patient remained afebrile and MAPs >65, deemed stable for transfer to flooron 11/01/2020. Overnight, patient with worsening respiratory distress, rapid called, he was placed on NRB and given IV lasix due to concern for volume overload and 0.5 mg ativan due to concern for component of anxiety. Despite tachypnea, patient had respiratory acidosis. He rapidly decompensated and was transferred back to MICU where he was immediately intubated, became hypotensive post-intubation and started on pressors. CT thorax showing bilateral effusions new from prior CT and findings consistent with ARDS. Esophagus was also noted to be prominently distended, concern for esophageal d istension and possible tracheal compression being another factor related to patient's initial increased work of breathing. On SBT, became tachypneic once again and remained intubated. Plan for repeat SBT tomorrow. MAKER Associated attestation - Moreno Nelson Jr., MD - 11/03/2020 2:09 PM CSTI spent 32 minute(s) on date 11/03 personally caring for this critically ill patient on the unit/floor. The patient was critically ill due to ARDS and sepsis. I performed the following services: direct hands-on care of the patient, reviewed imaging studies and reviewed test results, and interpretation of physiologic parameters. Patient has sepsis with acute hypoxic respiratory failure secondary to Proteus urinary tract infection. On antibiotics, still hypoxic.Roberto Gooden MD - 11/02/2020 8:41 AM CST Brief MICU Note Date: 11/02/2020 19:12 Code Status: full ICU day: 3 Intubation Day: 1 Tahir Sanches is a 35 year old male admitted with acute hypoxic and hypercapnic respiratory failure 12 Hour Events (includes major events throughout the day, patient status, significant labs, radiology, consult updates): - readmitted to MICU from floor - intubated, post intubation ABG (pH 7.45, pCO2 39) showed resolved respiratory acidosis - SBT attempted, ABG showed decreased PCO2 of 29, will attempt extubation in AM tomorrow - US abd showed ascites - CXR read: bilateral patchy lung infiltrates, suggestive of ARDS - CT/PE held - c/w meropenem for aspiration/proteus UTI - family updated Vitals Ventilation / Pressors Sedation / Paralyzation Temp: [35.1 C (95.2 F)-36.9 C (98.4 F)] Heart Rate (monitor): [69-130] Pulse: [68-130] Resp: [12-30] BP: (43-164)/(29-151) Arterial Line BP: (110-138)/(77-98) MAP (mmHg): [36-157] MAP: [89 mmHg-114 mmHg] Vent mode: PRVC A/C Vt inspiratory (mL): 414 mL Resp (Vent Total): 20 FiO2 (%): 35 % Ve measured (L/min): 5.91 L/min PIP observed (cmH2O): 20 cmH2O Norepinephrine Dose (mcg/kg/min): 0.5 mcg/kg/min Phenylephrine Dose (mcg/kg/min): 0 mcg/kg/min Propofol Dose (mcg/kg/min): 40 mcg/kg/min Plan for the Next 12 Hours (includes anticipated events, complications to watch for, pending labs/radiology/consults): - ECHO pending - hold propofol in AM - consider speech eval (after extubation) - consider palliative care consult for symptom management (after extubation) - consider diuresis if hemodynamically stable Roberto Gooden M.D. Department of Anesthesiology PGY-1 [facility] Doctor's Number: [id number] Dia Barton OT - 11/02/2020 8:19 AM CST11/02/2020 0819 OCCUPATIONAL THERAPY NOTE: Consult received and EPIC reviewed. Per chart review, pt just emergently intubated. OT will hold until pt is medically appropriate. Quinn Avalos OTR [phone] signed by Dia Avalos OT at 11/02/2020 8:19 AM Edie Nicole PT - 11/02/2020 7:13 AM CSTPT Note: Consult received and EPIC reviewed. Per chart review, pt just emergently intubated. PT will hold until pt is medically appropriate. Edie Garcia, PT, DPT MAKER Sandrine Vieira MD - 11/02/2020 3:08 AM CSTBrief Night Progress Note/Transfer to ICU Note At 3AM: overnight, notified that patient is complaining of worsening shortness of breath. He states he is feeling anxious and that he feels he is unable to take deep breaths. Reports he felt the same way last night in the ICU as well. Vitals 96.6F, HR 111, BP 117/84, RR 26 SpO2 97% on 2L/min O2 (no decompensations documented prior toplacing on O2) On exam, crackles heard throughout bilateral lung herrera. Increased work of breathing. CXR 10/31/20 concerning for possible L sided pneumonia and small L sided pleural effusion. CT Thorax 10/31/20 shows interval development of bilateral [id number] pleural effusions with associated atelectasis. Also interval development of bilateral patchy groundglass opacities most prominent in RUL. AB.37/47/82/27 Lactate 1.88 Given bilateral pleural effusions will order Lasix IV 10mg once given, duoneb x1, Atarax 10mg po once. Will also repeat COVID rapid and PCR tests. At 5AM: rapid called on patient for desaturations on NC and venturi mask to 70s- 80s. HR 130s. RR 30s-40s. Patient placed on NRB. At bedside patient with worsening work of breathing. Crackles heard overbilateral lung herrera. Possibly desaturating 2/2 bilateral pleural effusions vs PNA, need to rule out PE, COVID. Lasix 40mg IV given. Ativan 0.5mg IV once given. AB.28/61/95/28. D-dimer 1.45 transporter driver and team at bedside to assess patient. Patient accepted for admission to ICU. Sandrine Vieira MD Internal Medicine PGY2 [facility] Sandrine Mallory MD - 11/01/2020 6:13 PM CST PGY- 2 [facility] Acceptance Note/Transfer Note Date of Service: 11/01/2020 18:13 Chief Complaint: Achalasia, Urosepsis Hospital Course: Tahir Sanches Jr. is a 35 year old man with PMH of mood disorder, polysubstance use disorder.Presented after leaving AMA for continued evaluation of presumed achalasia. GI did EGD with manometry diagnosing achalasia on 10/21. CTS consulted recommending balloon dilation of esophageal sphincter, GIperformed esophagealBotox injection and PEG tube placement on 10/27/2020, with no complications.Multidisciplinary meeting held to establish patient support network and plan for outpatient follow up.Patient developed refeeding syndrome and required aggressive repletion of phosphorous(IV and Enteral)for multiple days. On 10/31/2020 patient became hypotensive and tachycardic, forrester cultures gathered, and empiric Zosyn started for suspected Pyelonephritis/Urosepsis based on patient complaint of dysuria and UA concerning for infection. Sepsis protocol started and patient bolused 30 ml/kg, with per sistent hypotension and new onset tiredness/mild lethargy. Patient continued to be hypotensive requiring pressorsand was subsequently transferred to MICU. Upon arrival to MICU, patient started on broad spectrum antibiotics with pressor support. Lab findings significant for drop in hemoglobin to 6.2 (given 1U pRBCs), CT Thorax/A&P ordered to evaluate for source of potential bleed. Blood culturesNGTD @24 hours, Urine Cx growing >100,000 proteus penneri, currently on Merrem. Pressors weaned off and patient remains afebrile and MAPs >65, deemed stable for transfer to floor on 11/01/2020. Overnight, patient with worsening respiratory distress, rapid called, patient transferred back to MICU today morning. 24-HOUR EVENTS: - Off pressors at 1300 today, BP stable - CT A/P done, pending read to evaluate for bleeding source. - Worsening respiratory distress overnight, rapid called, transferred back to MICU. SUBJECTIVE: At bedside patient reports feeling well, except for intermittent chills. Denies any fevers, malaise,nausea, vomiting, blood in stool. Requesting apple juice. PHYSICAL EXAM: Vitals: 11/01/20 1455 11/01/20 1500 11/01/20 1600 11/01/20 1700 BP: 108/88 98/82 115/87 BP Location: Patient Position: Pulse: 115 107 105 107 Resp: Temp: 35.8 C (96.4 F) TempSrc: Tympanic SpO2: 95% 92% 92% Weight: Height: Temp: [35.6 C (96.1 F)-36.1 C (97 F)] Heart Rate (monitor): [70-111] Pulse: [67-115] Resp: [9-24] BP: (76-115)/(53-88) MAP (mmHg): [64-95] Intake/Output Summary (Last 24 hours) at 11/01/20201812 Last data filed at 11/01/2020 1600 Gross per 24 hour Intake 900 ml Output 0 ml Net 900 ml Gen: NAD, AOx4 HEENT: EOMI, MMM P: CTAB - no wheezes, rhochi, stridor, crackles CV: RRR - no murmurs, clicks, gallops, rubs Abd: NT, Soft, Normoactive Bowel sounds MSK: 5/5 mm strength in bilateral upper and lower extremities, intact sensation to LT in bilateralupper and lower extremities. Ext: No peripheral edema Neuro: CN2-12 grossly intact, peripheral sensation intact LABS/IMAGING - reviewed, pertinent results as below: Urine culture 10/31/20: >100k CFU Proteus Penneri Blood cx x2 10/31/20: pending ASSESSMENT/PLAN Tahir Powerdmitry Frye is a 35 year old male with PMH as listed above, admitted to the hospital with: Achalasia (s/p esophageal botox injection, PEG tube placement 10/27/20) Severe protein calorie malnutrition Refeeding syndrome with electrolyte derangement Patients phosphate, potassium, calcium and magnesium are much improved after aggressive repletion. - Clear liquid diet for pleasure feeds - G tube feeds -Pivot 1.5 - Replete lytes - Telemetry monitoring - Folic acid, thiamine supplementations Proteus Penneri Urosepsis Possible Left Lower Lobe PNA Septic vs Hemorrhagic Shock CMV Viremia Late Latent Syphilis Sacral Ulcer Hematuria Possible Urosepsis Patient received Penicillin G in August and again on 10/25/20 (did not appear to receive other shotsin between doses). Evaluated for neurosyphilis, LP negative, CSF VDRL assay negative. On 10/31/20, patient became hypotensive, febrile concerning for septic vs hemorraghic shock. Patient also reporting recent hematuria with passage of blood clots since yesterday, with subsequent acute drop in Hgb.Transferred to ICU. Ucx grew proteus penneri. Off pressors now, transferred back to floor. - c/w Penicillin G qWeekly x 3 weeks (last dose ordered for today). - Meropenem 1g q8h - day 2 - f/u urine culture for susceptibility and tailor ABX appropriately - pending CMV PCR, HIV Bipolar disorder Schizophrenia Hx of drug abuse (cocaine, amphetamines, marijuana) Generalized pain Psychiatry consulted during this admission for medication management given frequent readmissions in the setting of visual hallucinations and medication nonadherence. - f/u psych recs - Risperdal 2mg BID - Hycet 7-325 q6hPRN - Atarax 10mg q6hPRN for anxiety - Plan on Invega Sustenna VACA before discharge per psych then will receive a booster shot one week later in [facility] per psych PAIN: Improved Hycet Prophylaxis: DVT- Contraindicated: Thrombocytopenia Stress Ulcer: pantoprazole Code Status: addressed: CPR Bowel Regimen: none Disposition Anticipated Discharge Date: 4-5 days Barriers to Discharge: urosepsis, pneumonia tx Sandrine Vieira MD Internal Medicine PGY2 [place] Team END OF DAILY PROGRESS NOTE CURRENT MEDICATIONS - reviewed. Current Facility-Administered Medications Medication Dose Route Frequency Last Rate Last Admin hydrOXYzine (ATARAX) 10 mg/5 mL solution 10 mg 10 mg Oral Q6HPRN dextrose 50 % in water (D50W) injection 25 mL 25 mL Slow IV Push PRN glucagon (GLUCAGEN DIAGNOSTIC KIT) injection 1 mg 1 mg Intramuscular PRN meropenem (MERREM) 1,000 mg in NaCl 0.9% (NS) 100 mL IV piggyback 1,000 mg IV Piggyback Q8H ABX 1,000 mg at 11/01/20 1543 NaCl 0.9% (NS) injection 10 mL 10 mL Slow IV Push PRN phenylephrine 10 mg in NaCl 0.9% (NS) 250 mL infusion RTU 0.5-6 mcg/kg/min IV Infusion TITRATE Stopped at 11/01/20 1300 calcium carbonate 500 mg RINCON CA/5 mL 500 mg/5 mL (1,250 mg/5 mL) suspension 500 mg 500 mg Enteral BID MEALS 500 mg at 11/01/20 1738 ergocalciferol (vitamin D2) (CALCIDOL) 200 mcg/mL (8,000 unit/mL) oral drops 2,000 Units 2,000 Units Oral DAILY 2,000 Units at 11/01/20 0845 foLIC acid (FOLATE) tablet 1 mg 1 mg Enteral DAILY 1 mg at 11/01/20 0846 methocarbamol (ROBAXIN) 50 mg/mL oral suspension 1,000 mg 1,000 mg Enteral TID 1,000 mg at 11/01/20 1543 multivitamin (CENTRUM) solution 15 mL 15 mL Enteral DAILY 15 mL at 11/01/20 1037 pantoprazole (PROTONIX) 2 mg/mL oral suspension 40 mg 40 mg Enteral BID 40 mg at 11/01/20 1037 vitamin B-12 (CYANOCOBALAMIN) tablet 1,000 mcg 1,000 mcg Enteral DAILY 1,000 mcg at 11/01/20 0846 HYDROcodone-acetaminophen (HYCET) 7.5-325 mg/15 mL solution 7.5 mg 7.5 mg Enteral Q6HPRN 7.5 mg at 11/01/20 1448 risperiDONE (RISPERDAL M-TAB) disintegrating tablet 2 mg 2 mg Enteral BID 2 mg at 11/01/20 1037 thiamine (VITAMIN B1) tablet 100 mg 100 mg Enteral BID 100 mg at 11/01/20 0846 artificial tears(hypromellose) (ISOPTO-TEARS) 0.5 % ophthalmic drops 1 Drop 1 Drop Both Eyes PRN atropine injection 0.5 mg 0.5 mg IV Push PRN - SEE INSTRUCTIONS dextrose 50 % in water (D50W) injection 25 mL 25 mL Slow IV Push PRN 25 mL at 10/27/20 1108 glucagon (GLUCAGEN DIAGNOSTIC KIT) injection 1 mg 1 mg Intramuscular PRN lidocaine (LIDODERM) 5 % (700 mg/patch) patch 1 Patch 1 Patch Topical DAILY 1 Patch at 11/01/20 0845 lidocaine 1% (PF) (XYLOCAINE) injection 5 mL 5 mL Subcutaneous PRN NaCl 0.9% (NS) injection 10 mL 10 mL Slow IV Push PRN nicotine (NICODERM) 7 mg/24 hr patch 1 Patch 1 Patch Topical DAILY 1 Patch at 10/30/20 1022 Tyrone Booker, - 11/01/2020 5:30 PM [facility] MAKER Brief MICU Transfer Note Date: 11/01/2020 17:30 ICU day: 2 Intubation Day: n/a Code Status: FULL Hospital Course: Tahir Sanches Jr. is a 35 year old man with PMH of mood disorder, polysubstance use disorder.Presented after leaving AMA for continued evaluation of presumed achalasia. GI did EGD with manometry diagnosing achalasia on 10/21. CTS consulted recommending balloon dilation of esophageal sphincter, GIperformed esophagealBotox injection and PEG tube placement on 10/27/2020, with no complications.Multidisciplinary meeting held to establish patient support network and plan for outpatient follow up.Patient developed refeeding syndrome and required aggressive repletion of phosphorous(IV and Enteral)for multiple days. On 10/31/2020 patient became hypotensive and tachycardic, forrester cultures gathered, and empiric Zosyn started for suspected Pyelonephritis/Urosepsis based on patient complaint of dysuria and UA concerning for infection. Sepsis protocol started and patient bolused 30 ml/kg, with per sistent hypotension and new onset tiredness/mild lethargy. Patient continued to be hypotensive requiring pressors and was subsequently transferred to MICU. Upon arrival to MICU, patient started on broad spectrum antibiotics with pressor support. Lab findings significant for drop in hemoglobin to 6.2 (given 1U pRBCs), CT Thorax/A&P ordered to evaluate for source of potential bleed. Blood cultures NGTD @24 hours, Urine Cx growing >100,000 proteus penneri, currently on Merrem. Pressors weaned off and patient remains afebrile and MAPs >65, deemed stable for transfer to floor. 12 Hour Events (should include: major events throughout the day, patient status, significant labs, radiology, consult updates): - Transfused 1U pRBC (6.2 -->9.0) - Phenyl stopped around ~1300 - CT Thorax, Abdomen & Pelvis performed (pending read) to evaluate for potential bleeding - Vancomycin stopped; continuing on Merrem for UTI (Proteus Penneri, pending susceptibilities); Blood Cx NGTD @ 24h - started CLD for pleasure; Vital feeds via PEG tube - kidney and liver grossly normal on abdominal US Plan for next 12 hours (should include: anticipated events, complications to watch for, pending labs/radiology/consults): - f/u CT Thorax, A&P read - continue to monitor H/H - follow urine susceptibilities to narrow abx - adequate cuff size given patient cachexia - Nutrition following - work up for potential autoimmune disorder (PBC?) given elevated AMA and transaminitis, alkaline phosphatase, GGT - monitor electrolytes with refeeding syndrome - Penicillin G shot this week for Late latent syphilis Tyrone Mendoza DO PGY-1, Internal Medicine MAKER Bill Roque DO - 11/01/2020 12:18 AM CST Medical Intensive Care Unit Progress Note Date of Service: 11/01/2020 05:38 Name: Tahir Sanches Jr. : 1985 ICU Day: 2 Intubation Day: 0 Code Status: Full Reason for ICU admission: Sepsis Hospital Course: Tahir Sanches Jr. is a 35 year old man with PMH of mood disorder, polysubstance use disorder.Presented after leaving A for continued evaluation of presumed achalasia. GI did EGD with manometry diagnosing achalasia on 10/21. CTS consulted recommending balloon dilation of esophageal sphincter,GI performed esophageal Botox injection and PEG tube placement on 10/27/2020, with no complications. Multidisciplinary meeting held to establish patient support network and plan for outpatient follow up.Patient developed refeeding syndrome and required aggressive repletion of phosphorous (IV and Enteral) for multiple days. On 10/31/2020 patient hypotensive and tachycardic, forrester cultures gathered, and empiric Zosyn started for suspected Pyelonephritis/Urosepsis based on patient complaint of dysuria and UA concerning for infection. Sepsis protocol started and patient bolused 30 ml/kg, with persistent hypotension and new onset tiredness/mild lethargy. Patient continued to be hypotensive requiring pressors and was subsequently transferred to MICU. Upon arrival to MICU, CXR showed concerns of possible left lower lobe PNA and pleural effusion. Repeat blood cultures ordered and patient's antibiotics were broadened to Vanc/Merrem. Last 24 hour events (major events): Admitted to MICU Subjective: Patient states he is doing well, reporting that he is not in any pain. He reports that this morning he was feeling lightheaded and experienced dizziness but states that it has since resolved. He complains of being hungry, noting that he has not received his tube feedings yet and is requesting them. Hestates he understands he cannot eat solid foods. Vitals Ventilation / Pressors Sedation / Paralyzation Temp: [36 C (96.8 F)-38.3 C (101 F)] Heart Rate (monitor): [87-103] Pulse: [67-122] Resp: [11-20] BP: (74-100)/(42-71) MAP (mmHg): [52-80] Phenylephrine Dose (mcg/kg/min): 0.8 mcg/kg/min Propofol Dose (mcg/kg/min): 0 mcg/kg/min Lines (with dates): PICC line: 10/31/20 PIV: R arm x2 (10/22/20, 10/31/20) Baltazar: 10/31/20 PEG Tube: 10/27/20 Intake/Output: Intake/Output Summary (Last 24 hours) at 11/01/2020 0538 Last data filed at 10/31/2020 1800 Gross per 24 hour Intake 1187 ml Output 400 ml Net 787 ml Physical Exam: Temp: [36 C (96.8 F)-38.3 C (101 F)] Heart Rate (monitor): [87-103] Pulse: [67-122] Resp: [11-20] BP: (74-100)/(42-71) MAP (mmHg): [52-80] Constitutional: thin, cachectic, no acute distress HEENT: extraocular movements intact, anicteric sclera Resp: diminished breath sounds bilaterally Cardio: regular rate and rhythm GI: non-tender, PEG tube site clean, dry, intact MSK: no clubbing, cyanosis, or edema Integ: no rashes Neuro: no focal deficits Labs (pertinent only)/Imaging: Xr Chest 1 Vw Result Date: 10/31/2020 1. Left PICC line terminates at level of mid SVC. 2. Retrocardiac opacity and small left effusion again seen. Microbiology: Blood cultures | Results: pending Date: 10/31/20 Antibiotics: Vanc/Merrem Day #: 2 Assessment/Plan: Tahir Sanches Jr. is a 35 year old male admitted with concerns for septic shock Neuro Bipolar disorder Schizophrenia Hx of drug abuse (cocaine, amphetamines, marijuana) Generalized pain Psychiatry consulted during this admission for medication management given frequent readmissions in the setting of visual hallucinations and medication nonadherence. - f/u psych recs - Risperdal 2mg BID - Hycet 7-325 q6hPRN - Plan on Invega Sustenna VACA before discharge per psych then will receive a booster shot one week later in [facility] per psych - If the patient feels in danger, suicidal, pt can contact these suicide hotlines or or to go to the nearest emergency department. Respiratory Possible left lower lobe PNA Pleural effusion Right lung atelectasis CXR shows ill-defined densities in left lung base concerning for pneumonia, associated with pleural effusion. Recent fever (T100.4F) could be associated with PNA vs recent surgery. No respiratory symptoms. Blood cultures pending. Switched to broad spectrum abx. - c/w Vanc/Merrem - f/u blood cultures Cardiovascular Septic vs Hemorrhagic Shock Anemia Leukopenia Thrombocytopenia Patient with acute drop in all cell lines. Transfusing 1U pRBC given Hgb 6.2 with unclear etiology, possible sepsis vs hemorrhage. Hematuria is present with passage of blood clots, but no melena or hematochezia noted. Pending workup for iron deficiency component. Current hypotensive, requiring pressors via PICC line. - Transfuse 1U pRBC - f/u post-transfusion H/H - CBC q8h - pending CT Thorax and CT A/P w/ contrast - f/u ferritin - f/u D-dimer, fibrinogen, haptoglobin, LDH - pending Diff consult - currently on Phenyl 0.6; keep MAP > 65 ID Septic vs Hemorrhagic Shock CMV Viremia Late Latent Syphilis Sacral Ulcer Patient received Penicillin G in August and again on 10/25/20 (did not appear to receive other shotsin between doses). Evaluated for neurosyphilis, LP negative, CSF VDRL assay negative. Blood and urine cultures ordered, started on broad spectrum abx 2/2 concerns for sepsis in the setting of dysuria, hematuria, and recent fever (T100.4F). - c/w Penicillin G qWeekly (will receive next dose today) - f/u blood cultures - f/u urine culture - c/w Vanc/Merrem - pending CMV PCR Renal Hematuria Possible Urosepsis Patient reporting recent hematuria with passage of blood clots since yesterday, with subsequent acute drop in Hgb. UA indicative of proteinuria, elevated RBC and WBC with many bacteria. Pending urine culture. Elevated urine protein/creatinine ratio. - f/u urine culture - f/u renal US GI Achalasia, s/p Esophageal botox injection, PEG tube placement (10/27/20) Transaminitis Elevated Alkaline Phosphatase Positive AMA Refeeding Syndrome Severe Malnutrition GI signed off, will perform liver biopsy outpatient 2/2 transaminitis, alkaline phosphatase, and AMA. Will order US of abdomen to assess for biliary component. Receiving feeds via PEG tube. - f/u CT Thorax and CT A/P - f/u abdominal US - BMP, Mg, Phos daily; replete PRN - Calcium carbonate, Folate, Thiamine, Phos-NAK, Vitamin D2 Endo No active concerns. Other Stress ulcer prophylaxis: PPI DVT prophylaxis: contraindicated Dispo: MICU Prognosis: Guarded Code Status: Full Bill Roque, Internal Medicine, PGY-1 [facility] Team Scheduled meds:meropenem (MERREM) IV piggyback, 1,000 mg, Q8H ABX vancomycin Peripheral Line IV Piggyback, 20 mg/kg, Q8H ABX calcium carbonate 500 mg RINCON CA/5 mL, 500 mg, BID MEALS ergocalciferol (vitamin D2), 2,000 Units, DAILY foLIC acid, 1 mg, DAILY methocarbamol (ROBAXIN) 50 mg/mL oral suspension, 1,000 mg, TID multivitamin, 15 mL, DAILY pantoprazole, 40 mg, BID vitamin B-12, 1,000 mcg, DAILY risperiDONE, 2 mg, BID thiamine, 100 mg, BID lidocaine, 1 Patch, DAILY nicotine, 1 Patch, DAILY IV meds:phenylephrine IV infusion, Last Rate: 0.8 mcg/kg/min (11/01/20 0433) PRN meds:dextrose 50 % in water (D50W), 25 mL, PRN glucagon, 1 mg, PRN NaCl 0.9% (NS), 10 mL, PRN phenylephrine IV infusion, 0.5-6 mcg/kg/min, TITRATE HYDROcodone-acetaminophen, 7.5 mg, Q6HPRN artificial tears(hypromellose), 1 Drop, PRN atropine, 0.5 mg, PRN - SEE INSTRUCTIONS dextrose 50 % in water (D50W), 25 mL, PRN glucagon, 1 mg, PRN lidocaine 1% (PF), 5 mL, PRN NaCl 0.9% (NS), 10 mL, PRN MAKER Associated attestation - Koby Morse MD - 11/01/2020 9:03 AM CSTI personally examined the patient on 11/01/[address] Roque's resident note. I activelyparticipated in the decision-making process. Please see the resident's note for additional details. Tahir Sanches Jr. is a 35 year old male admitted with shock, hypovolemic vs septic. As requiring vasopressors currently, will continue antibiotics, while awaiting cultures. Ensure BP cuff is appropriately sized given cachectic state. Refeeding syndrome: continue supplementation and monitoring electrolytes. MAP Goal >65 for vasopressors. I spent 31 minutes personally caring for this critically ill patient on the unit/floor. The patientwas critically ill due to Shock/Hemodynamic Instability. I performed the following services: Monitoring and adjustment of pressors/treatment of shock Ongoing metabolic management,reviewed imaging studies and reviewed test results and interpretation of physiologic parameters . Kimberly Snyder OT - 10/31/2020 12:49 PM CST10/31/2020 1249 OCCUPATIONAL THERAPY NOTE: Consult received. Patient transferring to ICU. Will hold OT at this time and continue to monitor patient's medical course while in house. TRISTIAN Lorenz, OTD, C/NDT Pager [phone] MAKER Edie Garcia PT - 10/31/2020 12:49 PM CSTPT Note: Consult received and EPIC reviewed. Pt transferring to ICU, PT will hold and evaluate when medicallystable. Edie Garcia PT, DPT ' MAKER Edie Garcia PT - 10/31/2020 10:07 AM CSTPT Note: Consult received and EPIC reviewed. PT spoke with RN who requests that PT hold as pt has just fallento sleep. PT will follow up later this date as time permits. Edie Garcia PT, DPT MAKER Pedro Oliva MD - 10/31/2020 6:07 AM CST [facility] Medicine Progress/Transfer Note Date of Service: 10/31/2020 11:57 Chief Complaint: N/V 2/2 Achalasia 24-HOUR EVENTS: Hypotensive, febrile and tachycardic episode at 0612. Labs, CXR and given IV bolus. HOSPITAL COURSE Tahir Sanches . is a 35 year old man with PMH of mood disorder, polysubstance use disorder.Presented after leaving AMA for continued evaluation of presumed achalasia. GI did EGD with manometry diagnosing achalasia on 10/21. CTS consulted recommending balloon dilation of esophageal sphincter,GI performed esophageal Botox injection and PEG tube placement on 10/27/2020, with no complications. Multidisciplinary meeting held to establish patient support network and plan for outpatient follow up. Patient developed refeeding syndrome and required aggressive repletion of phosphorous (IV and Enteral) for multiple days. On 10/31/2020 patient hypotensive and tachycardic, forrester cultures gathered, and empiric Zosyn started for suspected Pyelonephritis/Urosepsis based on patient complaint of dysuria and UA concerning for infection. Sepsis protocol started and patient bolused 30 ml/kg, with persistent hypotension and new onset tiredness/mild lethargy. Patient continued to be hypotensive requiring pressors and ICU level care. transporter driver called and patient accepted to MICU. SUBJECTIVE: Patient reports he felt great overnight and has not been drinking much fluids in order to prevent vomiting. He c/o dysuria and dark bloody urine with blood clots. He reports his stool is getting thicker but is still quite loose. He could not describe the color as he does not see his BM when being changed. He says his pain is controlled and denies chest pain, abdominal pain or shortness of breath. PHYSICAL EXAM: Vitals: 10/31/20 0621 10/31/20 0733 10/31/20 1143 10/31/20 1147 BP: 96/52 91/56 (!) 74/45 (!) 81/42 BP Location: Left arm Patient Position: Supine Pulse: 105 120 122 Resp: 16 17 Temp: 37.4 C (99.3 F) 38 C (100.4 F) 38.2 C (100.7 F) TempSrc: Oral Oral Oral SpO2: 92% 98% 98% Weight: Height: General: alert and oriented x 4 (person, place, date/time and situation); no apparent distress HEENT: pupils equal, round, reactive to light; extraocular movements intact; oropharynx clear; moistmucous membranes Lungs: clear to auscultation bilaterally Cardio: tachycardic, regularly regular, no murmurs appreciated. Abdomen: soft; non-tender; non-distended; normoactive bowel sounds Extremities: 2-3+ pitting edema bilateral lower extremities. Skin: No rashes appreciated, Ulcer on back black eschar, no erythematous and nonpurulent Neuro: alert and oriented x 3, difficult to keep awake. Stool: Brown and loose. No melena or hematochezia appreciated Intake/Output Summary (Last 24 hours) at 10/31/2020 1157 Last data filed at 10/31/2020 0800 Gross per 24 hour Intake 240 ml Output 2050 ml Net -1810 ml LABS/IMAGING - reviewed ASSESSMENT/PLAN Tahir Reyes Ancelmo Frye is a 35 year old male admitted to the hospital with: Achalasia Severe protein calorie malnutrition Refeeding syndrome with electrolyte derangement Acute complicated UTI Neutropenia Pneumonia (left lung base) Atelectasis (right lung base) Patients phosphate, potassium, calcium and magnesium are much improved after aggressive repletion. Will continue to obtain labs BID given their unpredictable nature. Patients febrile, hypotensive, and tachycardic state, abnormal CXR and UA could be due to pyelonephritis or aspiration pneumonia. Although he has normal lactic acid levels concern for sepsis is high, especially given neutropenia, and prompted forrester culture, with empiric zosyn, and after additional assessment vancomycin given his low physiologic reserve. - GI following, f/u recs - Clear liquid diet/pleasure feed only by mouth - 30 ml/kg sepsis protocol - Replete lytes - Labs: AM CMP, & PM BMP, BID Phosphorous & Mg - Telemetry x 48 hours - Switch IV meds to enteral - Pivot 1.5 (1.5 kcal/mL, 25% protein, + Arginine & [place]-3) - Vitamin D supplementation, Calcium supplementation, Zinc Supplementation - F/U Procalcitonin, urine culture, blood culture, CBC and CXR - Zosyn 3.375g in NaCl 0.9% Q6H and Vancomycin 750 mg in NaCl 20 mg/kg Q8H - Bolus fluids - Retroperitoneal US Transaminitis Elevated Alkaline Phosphate Elevated Alk Phos, ALT, and AST could be due to severe protein and calorie- malnutrition, especiallygiven patients refeeding syndrome and potential for ongoing multiorgan issues. Due to rapid improvement in transaminitis after restarting nutrition patient liver enzymes were likely elevated previouslydue to starvation hepatitis. However would need an ultrasound of liver to confirm. - Hold off on liver biopsy as liver enzymes have downtrended. Bipolar 1 Schizophrenia Polysubstance use disorder (cocaine, marijuana, amphetamines) Current smoker Patient on disintegrating tablet of Risperdal per psychiatry recommendations. - Change Risperdal m-tab from 3 mg QHS to 2 mg BID per psych rec - Plan on Invega Sustenna VACA before discharge per psych then will receive a booster shot one week later in [facility] per psych - If the patient feels in danger, suicidal, pt can contact these suicide hotlines or or to go to the nearest emergency department. PAIN: Uncontrolled, Hycet and Morphine Prophylaxis: DVT- Contraindicated: Thrombocytopenia Stress Ulcer: pantoprazole Code Status: addressed: CPR Disposition Anticipated Discharge Date : 4-5 days Barriers to Discharge: Possible pyelonephritis and pneumonia AGUILAR Mittal I personally examined the patient on 10/31/2020 and have verified the medical student documentation and/or findings, including the history, physical exam, and medical decision making. Additionally, I have personally performed or re- performed the physical exam and medical decision making activities of this patient's evaluation and management service. Pedro Oliva M.D. Department of Internal Medicine PGY-1, Juan's Team End of Daily Progress Note CURRENT MEDICATIONS - reviewed. Current Facility-Administered Medications Medication Dose Route Frequency Last Rate Last Admin lactated ringers IV infusion 500 mL 500 mL IV Infusion ONCE piperacillin-tazobactam (ZOSYN) 3.375 g in NaCl 0.9% (NS) 100 mL MINI-BAG 3.375 g IV Piggyback Q6H ABX 3.375 g at 10/31/20 0846 Vancomycin 750 mg in NaCl 0.9% (NS) 250 mL VIAL-MATE 20 mg/kg IV Piggyback Q8H ABX calcium carbonate 500 mg RINCON CA/5 mL 500 mg/5 mL (1,250 mg/5 mL) suspension 500 mg 500 mg Enteral BID MEALS 500 mg at 10/31/20 0823 ergocalciferol (vitamin D2) (CALCIDOL) 200 mcg/mL (8,000 unit/mL) oral drops 2,000 Units 2,000 Units Oral DAILY 2,000 Units at 10/31/20 0823 foLIC acid (FOLATE) tablet 1 mg 1 mg Enteral DAILY 1 mg at 10/31/20 0824 methocarbamol (ROBAXIN) 50 mg/mL oral suspension 1,000 mg 1,000 mg Enteral TID 1,000 mg at 10/31/20 0823 multivitamin (CENTRUM) solution 15 mL 15 mL Enteral DAILY 15 mL at 10/31/20 0822 pantoprazole (PROTONIX) 2 mg/mL oral suspension 40 mg 40 mg Enteral BID 40 mg at 10/31/20 0823 potassium, sodium phosphates (PHOS-NAK) 280-160-250 mg packet 1 Packet 1 Packet Enteral Q4H 1Packet at 10/31/20 0824 vitamin B-12 (CYANOCOBALAMIN) tablet 1,000 mcg 1,000 mcg Enteral DAILY 1,000 mcg at 10/31/20 0824 HYDROcodone-acetaminophen (HYCET) 7.5-325 mg/15 mL solution 7.5 mg 7.5 mg Enteral Q6HPRN 7.5 mg at 10/31/20 0408 morpHINE injection 1 mg 1 mg Slow IV Push Q4HPRN 1 mg at 10/31/20 0950 risperiDONE (RISPERDAL M-TAB) disintegrating tablet 2 mg 2 mg Enteral BID 2 mg at 10/31/20 0824 thiamine (VITAMIN B1) tablet 100 mg 100 mg Enteral BID 100 mg at 10/31/20 0824 artificial tears(hypromellose) (ISOPTO-TEARS) 0.5 % ophthalmic drops 1 Drop 1 Drop Both Eyes PRN atropine injection 0.5 mg 0.5 mg IV Push PRN - SEE INSTRUCTIONS dextrose 50 % in water (D50W) injection 25 mL 25 mL Slow IV Push PRN 25 mL at 10/27/20 1108 glucagon (GLUCAGEN DIAGNOSTIC KIT) injection 1 mg 1 mg Intramuscular PRN lidocaine (LIDODERM) 5 % (700 mg/patch) patch 1 Patch 1 Patch Topical DAILY 1 Patch at 10/31/20 0950 lidocaine 1% (PF) (XYLOCAINE) injection 5 mL 5 mL Subcutaneous PRN NaCl 0.9% (NS) injection 10 mL 10 mL Slow IV Push PRN nicotine (NICODERM) 7 mg/24 hr patch 1 Patch 1 Patch Topical DAILY 1 Patch at 10/30/20 1022 MAKER Associated attestation - Alesia Kelly MD - 10/31/2020 2:48 PM CSTI personally examined the patient on 10/31/[address] Oliva resident's note as written, including any changes or additions that the resident may have made to [facility] medical student'snote. I actively participated in the decision making process. Please see the resident's note for additional details. Marissa Keys MD - 10/30/2020 2:57 PM CSTBrief GI note: Discussed case with attending regarding liver biopsy inpatient vs outpatient. At this time Achalasiaand improvement of nutritional status takes precedence therefore Liver biopsy can be done outpatientas well. Case discussed with the attending. Please see previous progress notes for details/GI recommendations. GI team will sign off at this time. Please have patient follow with Dr. Keys in GI clinic in 4-8 weeks post discharge. Priority is CT surgery appointment and GI appointment can be adjusted based on surgery recommendations. Marissa Keys MD Gastroenterology and Hepatology PGY-4 Contact info through [facility] [place] signed by Marissa Keys MD at 10/30/2020 3:06 PM [facility] HospitalBrian hinton MD - 10/30/2020 2:50 PM CSTPsychiatry Consult Brief Note: Briefly spoke to patient about receiving VACA and scheduling follow up with [facility]. Patient reports that he is doing well today after increasing to Risperdal 2 mg BID. He is still wanting to go forward with the Invega Sustenna VACA. Reports discharge is now planned for Tuesday. He will call [facility] to arrange follow-up. ASSESSMENT/PLAN: Tahir Sanches . is a 35 year old male with a past psychiatric history ofschizophrenia,reported bipolar disorderand polysubstance abuserecently readmitted for achalasia.Psychiatry wasconsulted for medication management. No psychotic symptoms reported at this time, but patient with worsening agitation due to pain. Patient reports good effect from Risperdal BID. Considering patient'smedication nonadherence, achalasia, recommend giving the Invega Sustenna initiation dose. Though patient's liver enzymes and cbc raise mild concern, his current tolerance of Risperdal and the benefit of an VACA along with administration while in the hospital outweigh this concern. Would recommend give VACA sooner than later as patient may receive booster dose 7 days +/- 4 days later and potentially while still in hospital. Recommendations: 1)Schizophrenia(primary encounter diagnosis) - Continue Risperdal 2 mg BID (can be discontinued after VACA administration). - Invega Sustenna VACA 234 mg IM initiation dose - F/U with [facility] [place] (Case Management helping) -Psychiatry will continue to follow Pt discussed with Dr. Rosado who agrees with the above note. Electronically Signed By: Brian Ramirez MD PGY-2 [facility] Department of Psychiatry Consult Pager [phone] MAKER Associated attestation - Gianni Rosado MD - 10/31/2020 12:08 PM CSTI examined this patient, discussed the case with the resident, and directed the medical decision-making. I agree with the resident note. Mental status exam: The patient appears his stated age, lying comfortably in bed in no apparent distress. Fluent speech, no psychomotor abnormalities. Euthymic mood with congruent, full affect. Alert, grossly oriented,recent/remote recall intact. Thought processes are logical and coherent, with content negative for s uicidal/homicidal thoughts, negative for delusions/hallucinations. Good insight into medical situation, good judgment (future-oriented).Tiffany Garcia RN - 10/30/2020 10:27 AM CSTCARE MANAGEMENT PROGRESS NOTE TYLER called [facility], in [facility] to inquire about follow up care for patientand the ability for him to receive the "booster" injection of Invega he will need after discharge from inpatient care. TYLER spoke to Cierra, who took the patient's information and then stated that she could not give any information regarding the patient, but that all he has to do is call them when he is discharged and they will be able to see him for follow up. I explained that the psych team is wanting to begin Invega injections for the patient while inpatient and he will need his second shot shortly after discharge and we want to be sure he can receive the medication and she stated that we just needed to fax the discharge summary to them at [phone] upon discharge and they would make arrangements. TYLER spoke to Dr. Ramirez of the psych team and notified him of this. Tiffany Garcia RN, BSN Director Global Development [facility]-Care Management [email or web address] Office: [phone] (not for patient use) Pedro Carreon MD - 10/30/2020 6:13 AM CST [facility] Medicine Progress Note Date of Service: 10/30/2020 15:42 Chief Complaint: N/V 2/2 Achalasia 24-HOUR EVENTS: NAEO. SUBJECTIVE: Patient reports he is feeling much better this morning compared to yesterday. He was able to sleep for 2-3 hour intervals and is having more formed bowel movements. He reports vomiting when he intakes a large amount of oral fluids in small amount of time. Due to this, he has begun to listen to his body and decrease his amount of oral fluid intake to prevent vomiting. He says his pain is controlled and denies chest pain, abdominal pain or palpitations. PHYSICAL EXAM: Vitals: 10/30/20 0534 10/30/20 0728 10/30/20 1116 10/30/20 1400 BP: 92/58 100/69 (!) 82/53 105/55 BP Location: Left arm Left arm Patient Position: Lying left side Lying left side Pulse: 83 93 100 Resp: 18 18 18 Temp: 37.6 C (99.6 F) 37.9 C (100.3 F) 36.5 C (97.7 F) TempSrc: Oral Skin Skin SpO2: 99% 97% 96% Weight: Height: General: alert and oriented x 4 (person, place, date/time and situation); in no acute distress Lungs: clear to auscultation bilaterally Cardio: regular rate and rhythm Abdomen: soft; non-tender; non-distended; normoactive bowel sounds. Peg tube present, bandage clean dry and intact. Extremities: edema 2+ bilateral lower extremities, pulses palpable and equal in both feet Intake/Output Summary (Last 24 hours) at 10/30/2020 1542 Last data filed at 10/30/2020 1305 Gross per 24 hour Intake 460 ml Output 1000 ml Net -540 ml LABS/IMAGING - reviewed Values for today: Na - 134 K - 4.6 Ca - 6.8, 8.6 (corrected) Phos - 1.7 Mg - 1.9 Telemetry - Sinus 99, Tachy 120s, Trends 80s - low 100s ASSESSMENT/PLAN Tahir Eric Ancelmo Frye is a 35 year old male admitted to the hospital with: Achalasia Severe protein calorie malnutrition Refeeding syndrome with electrolyte derangement Patient continues to have low phosphate despite aggressive repletion using both enteral and intravenous phosphate. Potassium improved today, however given the wide ranges noted on laboratory studies inthe last 24 hours labs BID seem prudent if not absolutely necessary until more consistently normal values are observed. Patient did well overnight, however continues to have a normal heart rate which on review of literature may be an indication of developing heart failure, patient will require closer monitoring and more aggressive repletion of all electrolytes. Some suspicion of potential PTH/VitaminD given elevated Alk phos which may be due to bone breakdown, and documented low Vitamin D, and low n ormal (even corrected) calcium suspect that part of hypophosphatemia may be due to elevated PTH. However it is also very plausible that given patients prolonged course of starvation that the level of depletion of total body phosphate and potassium may be more significant than first suspected on admission labs. Currently differentiating between the two causes would be largely academic as patient merits treatment for vitamin D deficiency, low calcium, and other electrolyte derangements. - GI following, f/u recs - Clear liquid diet/pleasure feed only by mouth - Stop maintenance IV Fluids - D50 PRN hypoglycemia - Replete lytes and vitamins - Phosphorous, Mg, and BMP BID - Telemetry x 48 hours - Switch IV meds to enteral - Plan to taper off phosphate next week - Ensure Enlive Advanced (1.5 kcal/mL, protein 23% of kcal) 240 mL bolus Q4H - Vitamin D supplementation, Calcium supplementation Transaminitis Elevated Alkaline Phosphate Elevated Alk Phos, ALT, and AST could be due to severe protein and calorie- malnutrition, especiallygiven patients refeeding syndrome and potential for ongoing multiorgan issues. Due to rapid improvement in transaminitis after restarting nutrition patient liver enzymes were likely elevated previouslydue to starvation hepatitis. However would need an ultrasound of liver to confirm. - Hold off on liver biopsy as liver enzymes have downtrended. Bipolar 1 Schizophrenia Polysubstance use disorder (cocaine, marijuana, amphetamines) Current smoker Patient on disintegrating tablet of Risperdal per psychiatry recommendations. - Change Risperdal m-tab from 3 mg QHS to 2 mg BID per psych rec - Plan on Invega Sustenna VACA before discharge per psych then will receive a booster shot one week later in [facility] per psych - If the patient feels in danger, suicidal, pt can contact these suicide hotlines or or to go to the nearest emergency department. PAIN: Uncontrolled, Hycet and Morphine Prophylaxis: DVT- Contraindicated: Thrombocytopenia Stress Ulcer: pantoprazole Code Status: addressed: CPR Disposition Anticipated Discharge Date : 5-6 days Barriers to Discharge: Refeeding syndrome with electrolyte derangement Helen Cook, MS3 I personally examined the patient on 10/30/2020 and have verified the medical student documentation and/or findings, including the history, physical exam, and medical decision making. Additionally, I have personally performed or re- performed the physical exam and medical decision making activities of this patient's evaluation and management service. Pedro Oliva M.D. Department of Internal Medicine PGY-1, [facility] Team End of Daily Progress Note HOSPITAL COURSE Tahir Sanches . is a 35 year old man with PMH of mood disorder, polysubstance use disorder.Presented after leaving [place] for continued evaluation of presumed achalasia. GI did EGD with manometry diagnosing achalasia on 10/21. CTS consulted recommending balloon dilation of esophageal sphincter,GI plan for Botox injection Tuesday. Multidisciplinary meeting held to establish patient support network and plan for outpatient follow up. Peg tube and botox performed with no complications, and feeds were initiated without any acute concerns, patient did have some refeeding syndrome and required aggressive repletion of phosphorous for multiple days. CURRENT MEDICATIONS - reviewed. Current Facility-Administered Medications Medication Dose Route Frequency Last Rate Last Admin calcium carbonate 500 mg RINCON CA/5 mL 500 mg/5 mL (1,250 mg/5 mL) suspension 500 mg 500 mg Enteral BID MEALS 500 mg at 10/30/20 1311 ergocalciferol (vitamin D2) (CALCIDOL) 200 mcg/mL (8,000 unit/mL) oral drops 2,000 Units 2,000 Units Oral DAILY 2,000 Units at 10/30/20 1311 foLIC acid (FOLATE) tablet 1 mg 1 mg Enteral DAILY 1 mg at 10/30/20 1022 methocarbamol (ROBAXIN) 50 mg/mL oral suspension 1,000 mg 1,000 mg Enteral TID 1,000 mg at 10/30/20 1311 multivitamin (CENTRUM) solution 15 mL 15 mL Enteral DAILY 15 mL at 10/30/20 1022 pantoprazole (PROTONIX) 2 mg/mL oral suspension 40 mg 40 mg Enteral BID potassium, sodium phosphates (PHOS-NAK) 280-160-250 mg packet 1 Packet 1 Packet Enteral Q4H 1Packet at 10/30/20 1311 sodium phosphate 15 mmol in D5W 250 mL piggyback 15 mmol IV Piggyback ONCE 15 mmol at 10/30/20 1022 vitamin B-12 (CYANOCOBALAMIN) tablet 1,000 mcg 1,000 mcg Enteral DAILY 1,000 mcg at 10/30/20 1022 HYDROcodone-acetaminophen (HYCET) 7.5-325 mg/15 mL solution 7.5 mg 7.5 mg Enteral Q6HPRN 7.5 mg at 10/30/20 0751 morpHINE injection 1 mg 1 mg Slow IV Push Q4HPRN 1 mg at 10/30/20 1022 risperiDONE (RISPERDAL M-TAB) disintegrating tablet 2 mg 2 mg Enteral BID 2 mg at 10/30/20 0751 thiamine (VITAMIN B1) tablet 100 mg 100 mg Enteral BID 100 mg at 10/30/20 0751 artificial tears(hypromellose) (ISOPTO-TEARS) 0.5 % ophthalmic drops 1 Drop 1 Drop Both Eyes PRN atropine injection 0.5 mg 0.5 mg IV Push PRN - SEE INSTRUCTIONS dextrose 50 % in water (D50W) injection 25 mL 25 mL Slow IV Push PRN 25 mL at 10/27/20 1108 glucagon (GLUCAGEN DIAGNOSTIC KIT) injection 1 mg 1 mg Intramuscular PRN lidocaine (LIDODERM) 5 % (700 mg/patch) patch 1 Patch 1 Patch Topical DAILY 1 Patch at 10/30/20 1022 lidocaine 1% (PF) (XYLOCAINE) injection 5 mL 5 mL Subcutaneous PRN NaCl 0.9% (NS) injection 10 mL 10 mL Slow IV Push PRN nicotine (NICODERM) 7 mg/24 hr patch 1 Patch 1 Patch Topical DAILY 1 Patch at 10/30/20 1022 MAKER Associated attestation - Alesia Kelly MD - 10/30/2020 8:54 PM CSTI personally examined the patient on 10/30/[address] Oliva resident's note as written, including any changes or additions that the resident may have made to [facility] [place] medical student'snote. I actively participated in the decision making process. Please see the resident's note for additional details. Brian Ramirez MD - 10/29/2020 3:18 PM CST Psychiatry Consult Progress Note Date of Service: 10/29/2020 CC:"I'm in pain and did not sleep at all last night" Subjective: Patient found in this room AAOx4. Reports pain and agitation. He reports not sleeping in past 48 hours, primarily due to pain. Requests another daytime dosing for Risperdal similar to his PRN from yesterday. Asks for pain medication. Denies SI/HI/AVH. Terminates interview due to pain. 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 CURRENT MEDICATIONS: Current Facility-Administered Medications Medication Dose Route Frequency Last Rate Last Admin D5W-LR IV infusion 1,000 mL 1,000 mL IV Infusion CONTINUOUS 100 mL/hr at 10/29/20 0559 1,000 mLat 10/29/20 0559 HYDROcodone-acetaminophen (HYCET) 7.5-325 mg/15 mL solution 7.5 mg 7.5 mg Enteral Q6HPRN 7.5 mg at 10/29/20 1202 KCL (POTASSIUM CHLORIDE) 40 mEq in D5W piggyback 40 mEq IV Piggyback Q4H 40 mEq at 10/29/20 1316 morpHINE injection 1 mg 1 mg Slow IV Push Q4HPRN 1 mg at 10/29/20 1049 multivitamin (CENTRUM) solution 5 mL 5 mL Enteral DAILY sodium phosphate 15 mmol in D5W 250 mL piggyback 15 mmol IV Piggyback ONCE 15 mmol at 10/29/20 0956 potassium, sodium phosphates (PHOS-NAK) 280-160-250 mg packet 1 Packet 1 Packet Enteral QID 1Packet at 10/29/20 1202 thiamine (VITAMIN B1) tablet 100 mg 100 mg Enteral BID 100 mg at 10/29/20 0800 risperiDONE (RISPERDAL M-TAB) disintegrating tablet 3 mg 3 mg Enteral QHS 3 mg at 10/28/20 2243 artificial tears(hypromellose) (ISOPTO-TEARS) 0.5 % ophthalmic drops 1 Drop 1 Drop Both Eyes PRN atropine injection 0.5 mg 0.5 mg IV Push PRN - SEE INSTRUCTIONS dextrose 50 % in water (D50W) injection 25 mL 25 mL Slow IV Push PRN 25 mL at 10/27/20 1108 glucagon (GLUCAGEN DIAGNOSTIC KIT) injection 1 mg 1 mg Intramuscular PRN lidocaine (LIDODERM) 5 % (700 mg/patch) patch 1 Patch 1 Patch Topical DAILY 1 Patch at 10/29/20 0919 lidocaine 1% (PF) (XYLOCAINE) injection 5 mL 5 mL Subcutaneous PRN methocarbamoL (ROBAXIN) injection 1,000 mg 1,000 mg Intravenous Q8H 1,000 mg at 10/29/20 1316 NaCl 0.9% (NS) injection 10 mL 10 mL Slow IV Push PRN nicotine (NICODERM) 7 mg/24 hr patch 1 Patch 1 Patch Topical DAILY 1 Patch at 10/29/20 0919 pantoprazole (PROTONIX) 40 mg in NaCl 0.9% (NS) 100 mL MINI-BAG 40 mg IV Piggyback Q12H 40 mgat 10/29/20 0919 VITAL SIGNS: BP 95/66 (BP Location: Left arm, Patient Position: Supine) | Pulse 74 | Temp 36.2 C (97.1 F) (Skin) | Resp 16 | Ht 1.651 m (5' 5") | Wt 39.9 kg (88 lb) | SpO2 100% | BMI 14.64 kg/m LAB DATA CBC BMP PT/INR WBC (10*3/L) Date Value 10/27/2020 4.12 (L) NA (mmol/L) Date Value 10/29/2020 134 (L) No results found for: PT RBC (10*6/L) Date Value 10/27/2020 3.95 (L) K (mmol/L) Date Value 10/29/2020 3.4 (L) INR (no units) Date Value 10/21/2020 1.5 PLT (10*3/L) Date Value 10/27/2020 127 (L) CALCIUM (mg/dL) Date Value 10/29/2020 6.6 (L) HGB (g/dL) Date Value 10/27/2020 11.0 (L) CL (mmol/L) Date Value 10/29/2020 104 aPTT HCT (%) Date Value 10/27/2020 32.6 (L) BUN (mg/dL) Date Value 10/29/2020 16 APTT Patient (Seconds) Date Value 10/10/2020 33 CREATININE (mg/dL) Date Value 10/29/2020 0.31 (L) MENTAL STATUS EXAM: COMMENTS: cooperative with exam GAIT AND STATION:deferred APPEARANCE: Alert, Cachexia, Older than stated age and covered in blue surgical blanket. Grimaces with pain. ATTITUDE: Cooperative BEHAVIOR: Psychomotor Normal SPEECH: Regular rate and volume LANGUAGE: Normal MOOD: "agitated" AFFECT: Frustrated THOUGHT PROCESS: Logical Directed and Coherent THOUGHT CONTENT: Without Delusions SUICIDAL: Not present VIOLENT/HOMICIDAL: Not Present PERCEPTUAL: Without Hallucinations COGNITION: LEVEL OF CONSCIOUSNESS: Full ORIENTATION: Oriented x 4 RECENT AND REMOTE MEMORY: Intact ATTENTION AND CONCENTRATION: Good JUDGEMENT: Intact INSIGHT: Intact ASSESSMENT/PLAN: Tahir Sanches Jr. is a 35 year old male with a past psychiatric history ofschizophrenia, reported bipolar disorderand polysubstance abuse recently readmitted for achalasia. Psychiatry was consulted for medication management. No psychotic symptoms reported at this time, but patient with worsening agitation due to pain. Patient reports good effect from Risperdal for his agitation, but would benefit from a scheduled daytime dose. Recommend splitting the dose into BID and titrating the PM dose up until patient receives VACA. 1) Schizophrenia (primary encounter diagnosis) - Change Risperdal m-tab from 3 mg QHS to 2 mg BID - Plan on Invega Sustenna VACA before discharge (pending dispo) - [facility] -Psychiatry will continue to follow Pt discussed with Dr. Rosado who agrees with the above note. Brian Ramirez MD, PGY-2 Psychiatry Consults Consult Pager # [phone] MAKER Associated attestation - Gianni Rosado MD - 11/01/2020 10:34 AM SODA MAKER The resident examined the patient in person. I examined this patient via telepsychiatry, discussed the case with the resident, and directed the medical decision-making. I agree with the resident note. Verbal consent was obtained from patient for telehealth services below due to COVID-19 Pandemic. The visit was conducted via telephone with audio and video. Location of provider -- [facility] MD - 10/29/2020 6:38 AM SODA MAKER [facility] Medicine Progress Note Date of Service: 10/29/2020 09:19 Chief Complaint: N/V 2/2 Achalasia 24-HOUR EVENTS: Hypotensive episodes and feedings held overnight due to concerns of refeeding syndrome. SUBJECTIVE: Patient reports he is having severe pain and weakness. He was not able to sleep last night due to this and is requesting relief. Denies chest pain, abdominal pain, and constipation. PHYSICAL EXAM: Vitals: 10/29/20 0145 10/29/20 0500 10/29/20 0548 10/29/20 0745 BP: 106/70 (!) 87/56 (!) 87/56 99/67 BP Location: Left arm Left arm Patient Position: Supine Sitting Pulse: 95 101 85 Resp: 16 16 Temp: 37.3 C (99.2 F) 35.8 C (96.4 F) TempSrc: Oral Skin SpO2: 95% 100% 100% Weight: Height: General: alert and oriented x 4 (person, place, date/time and situation); appears to be in significant pain, but no respiratory distress Lungs: clear to auscultation bilaterally Cardio: regular rate and rhythm Abdomen: soft; non-tender; non-distended; normoactive bowel sounds. Peg tube present, bandage clean dry and intact. Extremities: edema 2+ Intake/Output Summary (Last 24 hours) at 10/29/2020918 Last data filed at 10/29/2020 0600 Gross per 24 hour Intake 2364 ml Output 2250 ml Net 114 ml LABS/IMAGING - reviewed Values for today Na - 134 K - 3.4 Ca - 6.6, 8.4 (corrected) Phos - 1.8 Albumin - 1.8 ASSESSMENT/PLAN Tahir Sanches Jr. is a 35 year old male admitted to the hospital with: Achalasia Severe protein calorie malnutrition Refeeding syndrome Patient has refeeding syndrome with persistently low phosphate despite aggressive phosphate supplementation yesterday. Patient normal heart rate to tachycardic which is concerning for refeeding syndrome heart failure. - GI following, f/u recs - Clear liquid diet/pleasure feed only by mouth - on d5w+LR (increased rate from 50 ml to 100ml/hr due to hypotensive episodes) - Thiamine 100 mg in D5W - D50 PRN hypoglycemia - Replete lytes Transaminitis Elevated Alkaline Phosphate Elevated Alk Phos, ALT, and AST could be due to severe protein and calorie- malnutrition, especiallygiven patients refeeding syndrome and potential for ongoing multiorgan issues. Due to rapid improvement in transaminitis after restarting nutrition patient liver enzymes were likely elevated previouslydue to starvation hepatitis. However would need an ultrasound of liver to confirm. - Hold off on liver biopsy as liver enzymes have downtrended. Bipolar 1 Schizophrenia Polysubstance use disorder (cocaine, marijuana, amphetamines) Current smoker Patient on disintegrating tablet of Risperdal per psychiatry recommendations. - Risperdal 3 mg qHS - Will discuss transition to VACA with psychiatry tomorrow. - Patient recommended to follow up with [facility]: or [facility]: or [facility]: [phone] s/p hospital discharge for psychiatric medications - If the patient feels in danger, suicidal, pt can contact these suicide hotlines or or to go to the nearest emergency department. PAIN: Uncontrolled Tylenol, Morphine and Fentanyl Prophylaxis: DVT- Contraindicated: Thrombocytopenia Stress Ulcer: pantoprazole Code Status: addressed: CPR Disposition Anticipated Discharge Date : 10/30 Barriers to Discharge: Refeeding syndrome Helen Cook, 3 I personally examined the patient on 10/28/2020 and have verified the medical student documentation and/or findings, including the history, physical exam, and medical decision making. Additionally, I have personally performed or re- performed the physical exam and medical decision making activities of this patient's evaluation and management service. Pedro Oliva M.D. Department of Internal Medicine PGY-1, [facility] Team HOSPITAL COURSE Tahir Sanches Jr. is a 35 year old man with PMH of mood disorder, polysubstance use disorder.Presented after leaving [place] for continued evaluation of presumed achalasia. GI did EGD with manometry diagnosing achalasia on 10/21. CTS consulted recommending balloon dilation of esophageal sphincter,GI plan for Botox injection Tuesday. Multidisciplinary meeting held to establish patient support network and plan for outpatient follow up. Peg tube and botox performed with no complications, and feeds were initiated without any acute concerns, patient did have some refeeding syndrome and required aggressive repletion of phosphorous for multiple days. CURRENT MEDICATIONS - reviewed. Current Facility-Administered Medications Medication Dose Route Frequency Last Rate Last Admin D5W-LR IV infusion 1,000 mL 1,000 mL IV Infusion CONTINUOUS 100 mL/hr at 10/29/20 05 1,000 mLat 10/29/20 0559 HYDROcodone-acetaminophen (HYCET) 7.5-325 mg/15 mL solution 7.5 mg 7.5 mg Enteral Q6HPRN KCL (POTASSIUM CHLORIDE) 40 mEq in D5W piggyback 40 mEq IV Piggyback Q4H magnesium sulfate in water 4 gram/50 mL (8 %) IV Piggyback 4 g 4 g IV Piggyback ONCE morpHINE injection 1 mg 1 mg Slow IV Push Q4HPRN sodium phosphate 15 mmol in D5W 250 mL piggyback 15 mmol IV Piggyback ONCE potassium, sodium phosphates (PHOS-NAK) 280-160-250 mg packet 1 Packet 1 Packet Enteral QID 1Packet at 10/28/20 2243 thiamine (VITAMIN B1) tablet 100 mg 100 mg Enteral BID 100 mg at 10/28/20 2244 risperiDONE (RISPERDAL M-TAB) disintegrating tablet 3 mg 3 mg Enteral QHS 3 mg at 10/28/20 224 artificial tears(hypromellose) (ISOPTO-TEARS) 0.5 % ophthalmic drops 1 Drop 1 Drop Both Eyes PRN atropine injection 0.5 mg 0.5 mg IV Push PRN - SEE INSTRUCTIONS dextrose 50 % in water (D50W) injection 25 mL 25 mL Slow IV Push PRN 25 mL at 10/27/20 1108 glucagon (GLUCAGEN DIAGNOSTIC KIT) injection 1 mg 1 mg Intramuscular PRN lidocaine (LIDODERM) 5 % (700 mg/patch) patch 1 Patch 1 Patch Topical DAILY 1 Patch at 10/20/20 0917 lidocaine 1% (PF) (XYLOCAINE) injection 5 mL 5 mL Subcutaneous PRN methocarbamoL (ROBAXIN) injection 1,000 mg 1,000 mg Intravenous Q8H 1,000 mg at 10/29/20 0407 NaCl 0.9% (NS) injection 10 mL 10 mL Slow IV Push PRN nicotine (NICODERM) 7 mg/24 hr patch 1 Patch 1 Patch Topical DAILY 1 Patch at 10/28/20 0900 pantoprazole (PROTONIX) 40 mg in NaCl 0.9% (NS) 100 mL MINI-BAG 40 mg IV Piggyback Q12H 40 mgat 10/28/20 2244 MAKER Associated attestation - Alesia Kelly MD - 10/29/2020 3:24 PM CSTI personally examined the patient on 10/29/[address] Oliva resident's note as written, including any changes or additions that the resident may have made to [facility] [place] medical student'snote. I actively participated in the decision making process. Please see the resident's note for additional details. Dixie Smith RN - 10/28/2020 2:16 PM CSTCare Management Continued Stay Assessment LOS Day: 9 Estimated /Planned Discharge Date: 10/31 Eben male 35 year old Date CM/SW last Face to Face completed with patient/family: 10/28/20 Funding source: Payor: MEDICAID PENDING / Plan: MEDICAID PENDING / Product Type: Pending / PCP:PATIENT DOES NOT HAVE A PCP Patient/Family/MPOA/Caregiver Engaged with Transitional Care Plan: yes Patient/Family/MPOA/Caregiver concurs with proposed discharge plan: yes Name, Relationship to Patient and contact number of individual acting on behalf of the patient: patient, mother, father and sister Gay Sanches - sister - [phone]; Lisa Hall - cousin - [phone]; Shantel Sanches - mother - [phone]; Tristan Sanches Sr. (Father) [phone] Chief Complaint/Admitting Dx:Achalasia Hospital Problems: Achalasia Summary of hospital course: Tahir Sanches Jr. is a 35 year old man with PMH of mood disorder,polysubstance use disorder. Presented after leaving [place] for continued evaluation of presumed achalasia. GI did EGD with manometry diagnosing achalasia on 10/21. CTS consulted recommending balloon dilation of esophageal sphincter, GI plan for Botox injection Tuesday. Multidisciplinary meeting held to establish patient support network and plan for outpatient follow up. Patient went for botox and peg tube. CM/SW Interventions/Resources provided: SFA completed, discharge planning initiated, 211 informationto call for food stamps, MASH referral, PAP for feeds submitted, IHC and Casebook applications given. CM/SW Interventions/Resources still needed: CC/SW to continue to follow and assist in Discharge planning Anticipated Discharge Destination: Home If DC to home, who will support patient: Gay Sanches - sister - [phone]; Lisa Hall - cousin - [phone]; Shantel Sanches - mother - [phone]; Tristan Sanches Sr. (Father) [phone] Anticipated DME needs: None Referrals sent: not applicable If no, why/when will referral be sent:: Has patient been accepted: not applicable Revised plan if not accepted: What is the clinical care happening right now that must be done in the hospital and only the hospital: peg placement post 24hr for full feeds, liver biopsy. Psych and GI consult. Dixie Durham" MARTINA Smith-BSN Director Global Development [facility] Care Management Office: [phone] [email or web address] MAKER Brian Ramirez MD - 10/28/2020 2:04 PM CST Psychiatry Consult Progress Note Date of Service: 10/28/2020 CC:"I'm feeling much better" Subjective: Interviewed patient in his room this afternoon. A&O x4 at this time. On my evaluation, patient'scurrent mood can be described as good. Patient improving with Risperdal M-tab, most recently increased to 3 mg yeaster. Says that he sometimes becomes agitated, last time this morning, but the M-tabsignificantly helps with his mood and anxiety. Denied AVH. Denied SI intent and plan. Denied HI. Denied side effects including sedation. Discussed patient plans for psychiatric follow up. Plants to follow up with [facility]. Discussed transition to CURRENT MEDICATIONS: Current Facility-Administered Medications Medication Dose Route Frequency Last Rate Last Admin D5W-LR IV infusion 1,000 mL 1,000 mL IV Infusion CONTINUOUS 50 mL/hr at 10/28/20 0741 1,000 mL at 10/28/20 0741 HYDROcodone-acetaminophen (HYCET) 7.5-325 mg/15 mL solution 5 mg 5 mg Enteral Q6HPRN 5 mg at 10/28/20 0740 potassium, sodium phosphates (PHOS-NAK) 280-160-250 mg packet 1 Packet 1 Packet Enteral QID 1Packet at 10/28/20 1316 sodium phosphate 15 mmol in D5W 250 mL piggyback 15 mmol IV Piggyback ONCE 15 mmol at 10/28/20 0932 risperiDONE (RISPERDAL M-TAB) disintegrating tablet 3 mg 3 mg Enteral QHS 3 mg at 10/27/20 2100 artificial tears(hypromellose) (ISOPTO-TEARS) 0.5 % ophthalmic drops 1 Drop 1 Drop Both Eyes PRN morpHINE injection 2 mg 2 mg Slow IV Push Q4HPRN 2 mg at 10/28/20 0917 atropine injection 0.5 mg 0.5 mg IV Push PRN - SEE INSTRUCTIONS dextrose 50 % in water (D50W) injection 25 mL 25 mL Slow IV Push PRN 25 mL at 10/27/20 1108 glucagon (GLUCAGEN DIAGNOSTIC KIT) injection 1 mg 1 mg Intramuscular PRN lidocaine (LIDODERM) 5 % (700 mg/patch) patch 1 Patch 1 Patch Topical DAILY 1 Patch at 10/20/20 0917 lidocaine 1% (PF) (XYLOCAINE) injection 5 mL 5 mL Subcutaneous PRN methocarbamoL (ROBAXIN) injection 1,000 mg 1,000 mg Intravenous Q8H 1,000 mg at 10/28/20 1316 NaCl 0.9% (NS) injection 10 mL 10 mL Slow IV Push PRN nicotine (NICODERM) 7 mg/24 hr patch 1 Patch 1 Patch Topical DAILY 1 Patch at 10/28/20 0900 pantoprazole (PROTONIX) 40 mg in NaCl 0.9% (NS) 100 mL MINI-BAG 40 mg IV Piggyback Q12H 40 mgat 10/28/20 0741 VITAL SIGNS: BP 95/70 | Pulse 95 | Temp 36 C (96.8 F) (Tympanic) | Resp 18 | Ht 1.651 m (5' 5") | Wt 39.9 kg (88 lb) | SpO2 100% | BMI 14.64 kg/m LAB DATA CBC BMP PT/INR WBC (10*3/L) Date Value 10/27/2020 4.12 (L) NA (mmol/L) Date Value 10/28/2020 131 (L) No results found for: PT RBC (10*6/L) Date Value 10/27/2020 3.95 (L) K (mmol/L) Date Value 10/28/2020 3.5 INR (no units) Date Value 10/21/2020 1.5 PLT (10*3/L) Date Value 10/27/2020 127 (L) CALCIUM (mg/dL) Date Value 10/28/2020 6.7 (L) HGB (g/dL) Date Value 10/27/2020 11.0 (L) CL (mmol/L) Date Value 10/28/2020 99 aPTT HCT (%) Date Value 10/27/2020 32.6 (L) BUN (mg/dL) Date Value 10/28/2020 18 APTT Patient (Seconds) Date Value 10/10/2020 33 CREATININE (mg/dL) Date Value 10/28/2020 0.47 (L) MENTAL STATUS EXAM: COMMENTS: cooperative with exam GAIT AND STATION:deferred APPEARANCE: Alert, Cachexia, Older than stated age and with some procedure bandaging ATTITUDE: Cooperative BEHAVIOR: Psychomotor Normal SPEECH: Regular rate and volume LANGUAGE: Normal MOOD: "good" AFFECT: Appropriate THOUGHT PROCESS: Logical Directed and Coherent THOUGHT CONTENT: Without Delusions SUICIDAL: Not present VIOLENT/HOMICIDAL: Not Present PERCEPTUAL: Without Hallucinations COGNITION: LEVEL OF CONSCIOUSNESS: Full ORIENTATION: Oriented x 4 RECENT AND REMOTE MEMORY: Intact ATTENTION AND CONCENTRATION: Good JUDGEMENT: Intact INSIGHT: Intact ASSESSMENT/PLAN: Tahir Sanches Jr. is a 35 year old male with a past psychiatric history ofschizophrenia, reported bipolar disorderand polysubstance abuse recently readmitted for achalasia. Psychiatry was consulted for medication management. Patient is improving with increased risperdal m-tab. Denies SI/HI/AVH. 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 1) Schizophrenia (primary encounter diagnosis) - Continue Risperdal m-tab to 3 mg QHS - Can give extra 1 mg dose PRN acute agitation/psychosis/aggression - Once tolerability and dosing established, will consider VACA inpatient. Also counseled patient on receiving VACA as outpatient after establishing care with [facility]. - Referral to follow up with [facility]: Other Resources: [facility] Outpatient Psychiatry (Schwartz): [phone], (Janet): [phone] [facility]: or [facility]: or [facility]: [phone] s/p hospital discharge for psychiatric medications -Psychiatry will continue to follow Pt discussed with Dr. Rosado who agrees with the above note. Brian Ramirez MD, PGY-2 Psychiatry Consults Consult Pager # [phone] MAKER Associated attestation - Gianni Rosado MD - 11/01/2020 1:11 PM CSTI examined this patient, discussed the case with the resident, and directed the medical decision-making. I agree with the resident note. Marissa Keys MD - 10/28/2020 1:17 PM CST Date of Service: 10/28/2020 13:18 Chief Complaint: SUBJECTIVE/ MAJOR EVENTS: Pt was seen and examined at bedside. Pt is s/p endoscopic botox tx and PEG tube placement. Tube feeds started. The PEG site looks well, bumper remains appropriately loose on exam. PHYSICAL EXAM: Temp: [35.7 C (96.3 F)-36.4 C (97.6 F)] Pulse: [52-108] Resp: [10-18] BP: (78-103)/(55-75) MAP (mmHg): [63-80] POCT Blood Glucose (manual): [208 mg/dL] Intake/Output Summary (Last 24 hours) at 10/28/2020 1318 Last data filed at 10/28/2020 1000 Gross per 24 hour Intake 650 ml Output Net 650 ml General: Patient is alert and oriented x4, No apparent distress, +cachectic Cardiovascular: Regular rate and rhythm, no murmurs; no LE edema. Respiratory: Clear to auscultation bilaterally. Abdomen: +PEG tube in place, nondistended, no surgical scars, inverted umbilicus, soft, no tenderness, no masses, normal bowel sounds. LABS/IMAGING - REVIEWED CURRENT MEDICATIONS - REVIEWED COVID - 19 Status: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 At ~11:50pm 10/18/20 patient with full understanding and after discussion of risks including of with physician, COA and nurse, signed paperwork to leave AMA. Patient went to eat solid foods that his sister bought him, did not have a ride and returned to the ER. See yesterday's progress note for further details. PAST MEDICAL HISTORY Past Medical History: Diagnosis Date Bipolar 1 disorder GERD (gastroesophageal reflux disease) Manic affective disorder with recurrent episode Schizophrenia PAST SURGICAL HISTORY Past Surgical History: Procedure Laterality Date ESOPHAGOGASTRODUODENOSCOPY N/A 10/14/2020 Surgeon: Peterson Florence MD; Location: [facility] ([facility]) [facility] Location MEDICATIONS No current facility-administered medications on file prior to encounter. No current outpatient medications on file prior to encounter. ALLERGIES No Known Allergies FAMILY HISTORY No family history on file. SOCIAL HISTORY Social History Tobacco Use Smoking status: Current Every Day Smoker Smokeless tobacco: Never Used Tobacco comment: 1/2 pack/ day Substance Use Topics Alcohol use: Not on file Drug use: Not on file REVIEW OF SYSTEMS Constitutional: Negative HEENT: Negative Cardiovascular: Negative Respiratory: Negative Gastrointestinal: Achalasia per HPI Genitourinary: Negative Musculoskeletal: Negative Neurological: Negative PHYSICAL EXAM Vitals Vitals: 10/19/20 0232 BP: 120/88 Pulse: 60 Resp: 18 Temp: 36.8 C (98.2 F) SpO2: 98% Weight: 44 kg (97 lb) Temp: [35.6 C (96 F)-36.8 C (98.2 F)] Pulse: [44-60] Resp: [16-18] BP: (96-120)/(59-88) MAP (mmHg): [72-81] SpO2 readings for the past 24 hrs: SpO2 10/19/20 0232 98 % General: No apparent distress HEENT: able to track movement Neck: ROM intact Cardiovascular: Cachectic appearing Respiratory: CTA b/l Abdomen: +BS, nontender : No suprapubic tenderness MSK: No lower extremity edema Neuro: Coherent to conversation LABS See HPI IMAGING See HPI Chart Review: See HPI ASSESSMENT/PLAN Tahir Sanches Jr. is a 35 year old male with PMH of Achalasia, Latent Syphilis, Bipolar 1, Schizophrenia, Hx of drug use disorder (cocaine, marijuana, amphetamines), tobacco abuse disorder presenting with: Achalasia Severe protein calorie malnutrition Hypoglycemia, recurrent Patient has achalasia which is primary problem and has difficulty tolerating PO - GI following, appreciate recs, may need reconsult since AMA and readmission - pain: discontinue morphine due to few lower BP overnight; lidocaine patch for now - c/w Dobhoff - K PHOS neutral ordered QID - D5W + LR @125/hour - D50 PRN hypoglycemia Thrombocytopenia CMV infection -Consulted ID, appreciate recs, may need reconsult since AMA and readmission -F/u LP CSF results Bipolar 1 Schizophrenia [...] two additional doses (first dose scheduled for 10/12), ordered dose for today Atypical chest pain Patient had atypical chest pain. ekg and troponins normal at the time. Will continue to monitor. No acute intervention necessary. -C/w monitoring F: D5-LR 125 cc/hr E: Replete prn N: Clear Liquid Diet Prophylaxis: Contraindicated 2/2 Platelets Code: Full Disp: Pending Vandana Lei MD [facility] Internal Medicine Resident MAKER Associated attestation - Muriel Ramirez MD - 10/19/2020 5:[address] Lei, I examined this patient. I agree with Fellow/ resident's noteas written. MURIEL RAMIREZ MD [facility] Division of Nephrology and Hypertension. [facility]. documented in this encounter Procedure Notes Brandyn Elizabeth RN - 11/17/2020 3:00 PM CSTVascular Access Services A bedside timeout was conducted before procedure with Luz Marina Fofana RN. An ultrasound guided, 4fr 8cm MIDLINE was then placed in the left brachial vein, in 1 attempt(s). Local anesthetic was not used. Labs were not obtained. REF#: [id number] Lot #: [id number] Exp: 03/23/2022 ostStew brannon MD - 11/06/2020 5:30 PM CSTCENTRAL LINE PLACEMENT Date of Service: 11/06/20 Faculty: CESAR ARENAS, OMAR SALMON Any breaches/deviations from checklist noted:No Credentialed supervisor pressing department: Dr. Dariel Bell Indication/Diagnosis: pressors Consent: emergent procedure PreProcedure Verification Completed: yes Site Marking Completed Ultrasound Guided Time Out was Performed According to Checklist: yes. Sterile technique was used : A cap and mask were donned, hand hygiene was performed and sterile gownand gloves were donned. The skin was prepped with 2% chlorhexidine and the solution was allowed to dry. A full body fenestrated drape was placed over the patient without contaminating the drape during placement. Anesthesia: local: 1% lidocaine Instrument(s) type: triple lumen catheter Procedure site: right internal jugular vein Sterile dressing: yes Narrative: Patient was prepped and draped in the usual sterile fashion with Lidocaine. A central line was introduced with the Seldinger technique into the right IJ after 2 attempts. Guide wire was threaded without difficulty. The catheter was then placed over the guide wire, the guide wire was removed, and the catheter was sutured into place. Good flow was noted from the port(s) and the catheter flushed easily. Blood loss was minimal. Complications: none Chest x-ray: ordered and pending Dr. Bell, credentialed supervisor pressing department, was present for the entire procedure. Stew Butt M.D., Ph.D. Department of Internal Medicine PGY-1, [facility] Team Doctor's Number: [id number] MAKER Associated attestation - Omar Lock MD - 11/07/2020 8:26 AM CSTI was not present for but agree with the need for the procedure.John Charles RN - 10/31/2020 5:20 PM CSTVascular Access Services Date of Service: 10/31/20 Procedure performed by: John Diez RN, [facility] Patient location: 807 Indication/Diagnosis: intravenous access Consent: indications/complications discussed; written consent obtained from patient Education provided to the patient, including pros and cons of PICC insertion. Questions encouraged and answered accordingly. Time Out was Performed According to Checklist: yes Co-signer: MARTINA Gupta Any breaches/deviations from checklist noted: no Sterile technique was used : A cap and mask were donned, hand hygiene was performed and sterile gownand gloves were donned. The skin was prepped with 2% chlorhexidine and the solution was allowed to dry. A full body fenestrated drape was placed over the patient without contaminating the drape during placement. Anesthesia: local: 1% lidocaine Ultrasound utilized: yes Sherlock Location used: yes 3CG Tip Location System used: yes Sterile dressing: yes Narrative: Patient was prepped using chlorhexidine and draped utilizing max-barrier precautions. A double-lumenBard PICC line was introduced with the Modified- Seldinger technique into the left brachial vein in one attempt(s). Guide wire was threaded without difficulty. The micro-introducer was then placed over the guide wire, the guide wire was removed, and then the catheter was inserted through the micro-introducer. The micro-introducer was then peeled away and the PICC was secured using sutures. Good flow was noted from the port(s) and the catheter flushed easily. Blood loss was minimal. Trimmed length: 33 cm. Exposed catheter: 0 cm. Baseline Arm Circumference: 17 cm. Complications: none Chest x-ray: ordered and pending Tip Confirmed and released using 3CG Tip Location System: no REF#: [id number] Lot #: [id number] Exp Date: 08/23/21 MAKER John Charles RN - 10/22/2020 4:10 PM CSTVascular Access Services A bedside timeout was conducted before procedure with MARTINA Soto. An ultrasound guided, 4 Fr., 8 cm. MIDLINE was then placed in the right brachial vein, in one attempt(s). Local anesthetic was not used. Labs were not obtained. REF#: [id number] Lot #: [id number] Exp: 09/22/21 documented in this encounter Consult Notes Dia Avalos, OT - 11/12/2020 2:01 PM CSTAssociated Order(s): CONSULT ADULT OCCUPATIONAL THERAPY OT GENERAL EVALUATION Consult received via [facility] [employer], EMR reviewed and evaluation completed 11/12/20. Patient referred to occupational therapy for evaluation and treatment discharge recommendations. Patient agreeable to participate in occupational therapy. Patient is a 35 YOM with PMH of mood disorder,multiple hospital admissions during which he left AMA,polysubstance use disorder, achalasia s/p botox and PEG, noncompliance with dietary restrictions who presented 10/18/2020 after leaving AMA for continued evaluation of presumed achalasia. GIperformedEGD with manometry diagnosing achalasia. CTS consulted recommendingballoon dilation of esophageal sphincter, GIperformed esophagealBotox injection and PEG tube placement. Multidisciplinary meeting held to establish patient support network and plan for outpatient follow up, however, patient developed refeeding syndrome treated with repletion of phosphorous(IV and Enteral)for multiple days. The patient's hospital course was complicated with proteus urosepsis, requiring pressor support and transfer to the MICU 10/28/2020. Patient was stabilized and transferred to the floor 11/01/2020, however, patient developed respiratory distress, rapid called, rapidly decompensated and was transferred back to MICU 11/02/2020 where he was immediately intubated. CT thorax showing bilateral effusions new from prior CT and findings consistent with ARDS and esophageal distension. GI consulted and recommended NGT placement into the esophagus and suction the fluid material and remove NGT afterwards.Patient extubated 11/08/2020, saturating well on RA.Course additionally complicated by candidemia (lab draw 11/02/2020), CMV viremia (titers drawn 11/02/2020), and worsening sacral ulcer. Patient transferred to floor 11/10/2020 for further monitoring and care. Discharge Recommendations: Therapy Needs and Potential:- Patient would benefit from continued skilled occupational therapy services to address: Decline in basic activities of daily living, Decline in instrumental activities of daily living, Decline in cognition, Decreased strength, Decreased range of motion, Decreased endurance, Decreased coordination and Caregiver training - Patient exhibits limited activity tolerance. - Patient able to follow commands: 1-step Yes, Multi-step Yes, Inconsistencies No Challenges to Home Transition:- Requires physical assistance for BADLS - Requires physical assistance for IADLS - Limited caregiver availability - Decreased safety awareness/judgement - Increased risk of falls Equipment Recommendations:hospital bed with low loss air mattress, reclining wc, Deisy lift PLAN OF CARE: At least 2x/week Precautions: Weight bearing status: NA General: PPE Utilized: Gloves and Surgical mask, lines, IV's, Gtube Bracing: N/A Current Occupational Performance and/or Treatment: Feeding: Dependent Grooming: Dependent LB Dressing: Dependent Functional Mobility: Dependent Patient/caregiver educated on: AROM, Positioning and Role of OT Patient tolerated 10 reps PROM/AAROM R UE. Then upon L UE assessment, OT observed L UE to be swollen, warm, and tender to touch. Nursing informed and she alerted the team. OT would appreciate further assessment of L UE vs medical clearance before proceeding further. Patient left semireclining in bed with call gandara in reach. Nursing present. Please, see full evaluation below for more detail. OT EVALUATION: 35 year old male Admit date: 10/19/2020 Date of onset: 10/19/2021 Admit Diagnosis: Achalasia OT Diagnosis: Impaired BADL independence, Impaired IADL independence, Weakness, Activity intolerance, Decreased endurance, Impaired self-care mobility, Decreased UE Function JATIN, Impaired cognition, UEEdema and Pain PMH: Past Medical History: Diagnosis Date Bipolar 1 disorder GERD (gastroesophageal reflux disease) Manic affective disorder with recurrent episode Schizophrenia PSH: Past Surgical History: Procedure Laterality Date ESOPHAGEAL MANOMETRY (SHX) N/A 10/21/2020 Surgeon: Suresh Livingston MD; Location: [facility] Location ESOPHAGOGASTRODUODENOSCOPY N/A 10/14/2020 Surgeon: Peterson Florence MD; Location: [facility] Location ESOPHAGOGASTRODUODENOSCOPY N/A 10/21/2020 Surgeon: Suresh Livingston MD; Location: [facility] ([facility] Location ESOPHAGOGASTRODUODENOSCOPY N/A 10/27/2020 Surgeon: Tab Jordan MD; Location: [facility] ([facility] Location PERCUTANEOUS ENDOSCOPIC GASTRIC TUBE PLACEMENT N/A 10/27/2020 Surgeon: Tab Jordan MD; Location: [facility] ([facility] Location PAIN: Patient denies pain at the time of assessment, but does states that he has a "general achyness." OCCUPATIONAL ROLES/HOME ENVIRONMENT: Home environment: Single story home with his parents. Bathroom access: Yes Bathroom setup: Combo Occupation(s): Unemployed Function prior to admission: Community ambulation and Independent with IADLs Equipment prior to admission: None PERFORMANCE SKILLS/FACTORS: UE Muscle Tone: bilateral Hypotonicity UE ROM: R UE PROM WNL, L UE deferred due to edema, pain, and warm to touch. UE Strength: R shoulder 1/5, biceps/triceps and examining chair assembler 2-/5; L UE deferred Hand dominance: left Dexterity/Coordination: bilateral Fine motor skills Impaired and bilateral Gross motor skills Impaired Endurance - Sitting: NT Skin Integrity: High risk for breakdown Oral Motor: WFL Communication: Able to verbalize needs Yes Other: N/A Vision: WFL Yes Other: N/A Hearing: good; no issues reported COGNITION: Orientation: person and place Follows Commands: 1-step Yes Multi-step Yes Inconsistencies Yes Safety Awareness/Judgment: Poor and Requires frequent cueing PROBLEM LIST: Decreased independence with ADL, Impaired postural control, Decreased functional ROM, Decreased strength/endurance for functional activity and Impaired Cognition REHAB POTENTIAL/PROGNOSIS: fair PATIENT/FAMILY GOALS: none stated but agrees he wants to get stronger. TREATMENT/INTERVENTION PLAN: Functional motor treatment, Patient/Caregivier Education, Equipment recommendations, Daily living activities, Therapeutic exercises and Neuromuscular Re-Education GOAL(S): By discharge, patient will increase independence in daily living skills as follows: 1.Patient will complete upper extremity range of motion with SBA Assist. 2.Patient will increase endurance for functional activity as evidenced by ability to sustain 20 minutes of active participation with head of bed elevated or seated edge of bed. 3.Patient/caregiver will verbalize/demonstrate understanding/proficiency in the following home programs: Adaptive equipment and strategies,positioning, Fall prevention, ROM/strengthening/endurance, andADL training. PATIENT-FAMILY TEACHING Patient provided with preferred teaching of verbal information on AROM, Positioning and Role of OT. Barriers to learning include physical limitations. Verbal instruction teaching provided. Individual is able to read and needs reinforcement of teaching. TRISTIAN Sorto Total Timed Treatment Codes: 8 Min Total Treatment Time: 15 Min Patient Complexity Level High - An occupational therapy evaluation of high complexity was completed using the above tests and measures. The following information was obtained: An occupational profile and medical and therapy history, including review of medical and/or therapy records and extensive adolfo tional review of physical, cognitive, or psychosocial history related to current functional performance, Various standardized and non-standardized assessments were used to identify at least 5 or more performance deficits related to physical, cognitive, or psychosocial skills that result in activity limitations and/or participation restrictions and Clinical decision-making is of high analytic complexity, which includes an analysis of the patient profile, analysis of data from comprehensive assessment(s), and consideration of multiple treatment options. Patient present with comorbidities that affect occupational performance. Significant modification of tasks or assistance (e.g., physical or verbal) with assessment(s) is necessary to enable patient to complete evaluation component. MAKER Merritt Parr PT - 11/12/2020 9:30 AM CSTAssociated Order(s): CONSULT ADULT PHYSICAL THERAPY Patient agreeable to working with physical therapy. Patient met Semi reclined in bed. PHYSICAL THERAPY EVALUATION Consult received, chart reviewed and evaluation completed this date 11/12/2020. Patient is referred to PT for evaluation and treatment. Patient is a 35 year old male who presents to hospital for Achalasia . Discharge Recommendations: Therapy Needs and Potential: Patient would benefit from continued physical therapy services to address: decline in bed mobility decline in transfers decline in gait and/or balance decreased strength decreased endurance decreased coordination Patient appears motivated to improve their functional mobility and return to their previous levelof function. Patient exhibits limited activity tolerance. Challenges to Home Transition: increased risk of falls decreased safety awareness Equipment recommendations: wheelchair, hospital bed and mechanical lift Current Functional Status and/or Treatment:Functional mobility training and Patient/Family/Caregivereducation Bed Mobility: Rolling: Dependent Supine to sit: Dependent Scooting to edge of bed: Dependent Sit to supine: Dependent Repositioned patient to head of bed: Dependent. Unable to tolerate sitting edge of bed for 10 seconds due to increased back pain as per patient. Increased time to complete tasks Transfers: N/A, Ambulation: N/A. Therapeutic exercise: patient educated in Adaptive equipment , Fall prevention, General strengthening, Positioning, Relaxation/breathing techniques and Safety awareness., instructed patient in the following: ankle pumps After session, patient Semi reclined in bed, Bed alarm on . Call button provided. Nurse notified PLAN OF CARE: At least 2 times per week, once or twice a day (while in hospital) per patient's tolerance and medical needs. See below for complete details. Admit Date: 10/19/2020 Hospital Diagnosis:Achalasia PT Diagnosis: Difficulty walking, Weakness, Malaise/fatigue, Pain and Integument compromise Weight Bearing Precaution: NA General Precautions: PPE used:Gloves and Surgical mask, Fall,Baltazar catheter, PEG tube Bracing/Cast present or required:N/A PMH: Past Medical History: Diagnosis Date Bipolar 1 disorder GERD (gastroesophageal reflux disease) Manic affective disorder with recurrent episode Schizophrenia PSH: Past Surgical History: Procedure Laterality Date ESOPHAGEAL MANOMETRY (SHX) N/A 10/21/2020 Surgeon: Suresh Livingston MD; Location: [facility] ([facility] Location ESOPHAGOGASTRODUODENOSCOPY N/A 10/14/2020 Surgeon: Peterson Florence MD; Location: [facility] Location ESOPHAGOGASTRODUODENOSCOPY N/A 10/21/2020 Surgeon: Suresh Livingston MD; Location: [facility] ([facility] Location ESOPHAGOGASTRODUODENOSCOPY N/A 10/27/2020 Surgeon: Tab Jordan MD; Location: [facility] ([facility] Location PERCUTANEOUS ENDOSCOPIC GASTRIC TUBE PLACEMENT N/A 10/27/2020 Surgeon: Tab Jordan MD; Location: [facility] ([facility] Location Prior Living Situation: lives with their family and house, DME: Rolling Walker Prior level of Mobility: community ambulation, house hold ambulation, ambulates with no device Subjective: ' fine" Patient/Family Goals: Get better Patient/Family verbalizes understanding of condition: Yes PAIN: -Pain Description: aching and variable -Pain Location: lower back and upper back -Pain rating before treatment: does not rate, After treatment: 10 -Pain Management: Nursing Notified and Repositioning Provided COMMUNICATION Primary Language: Irish Able to Verbalize needs: Yes Vision:good; no issues reported Hearing:good; no issues reported ORIENTATION/COGNITION: Oriented to: person, date/time and situation Awake: Yes Alert: Yes Dizzy: No Follows Commands: Yes 1-Step Yes Multi-Step No Inconsistent: Yes NEUROLOGICAL Light Touch: within functional limits bilateral LE, Heel to parker: N/A Tone: WNL BALANCE: Sitting: Static: Poor Dynamic: NT Standing: Static: NT Dynamic: NT RANGE OF MOTION: within functional limits bilateral LE, passively done. STRENGTH: 2-/5 (P-), bilateral LE ENDURANCE: Poor+, Room air SKIN INTEGRITY: see nurse notes for details, PROBLEM LIST: Decline in bed mobility, Decline in gait, Decline in transfers, Decreased strength, Decreased endurance, Decreased balance, Safety awareness deficits, Pain and Decreased Coordination ASSESSMENT: Patient is a 35 year old male seen secondary to the above listed diagnosis. Patient would benefit from continued PT to address the above listed deficits to maximize independence and safety with functional mobility. Rehabilitation Potential: fair Goals: The following goals are to maximize independence and safety with functional mobility to eventually return to prior living situation and prior functional status. Upon discharge, patient and/or family will demonstrate the followin. Sitting balance Fair+ Supine to sit: Moderate assist Scooting to edge of bed: Moderate assist Sit to supine: Moderate assist 3. Lateral scooting transfer: Maximal assist 4. Minimal assist with wheelchair propulsion and management of brakes. 5. Demonstrate or verbalize understanding of home exercise program in order to continue with their rehab on their own. Treatment Plan: Therapeutic exercise, Transfer training, Balance training, Bed mobility training, Equipment needs assessment, Safety education, patient/caregiver education, Wheelchair mobility trainingand Neuromuscular Re-Education PATIENT EDUCATION: Patient provided with preferred teaching of verbal information on role of PT, plan of care, . Barriers to learning include physical limitations. Verbal instruction teaching provided.Individual is able to read and verbalizes understanding of teaching provided and needs reinforcementof teaching. Total Time Tx Codes in Minutes: 10 min Total Treatment Time in Minutes: 25 min Merritt Parr PT, DPT ynda Snyder - 11/07/2020 12:00 PM CSTAssociated Order(s): CONSULT FOOD AND NUTRITION Medical Nutrition Therapy- Consult Note: Reason For Consultation: Physician consult: Tahir Sanches Jr. is a 35 year old man with PMH of mood disorder, multiplehospital admissions during which he left AMA, polysubstance use disorder, achalasia s/p botox and PEG, noncompliance with dietary restrictions who pesented after leaving AMA for continued evaluation of presumed achalasia. GI performed EGD with manometry diagnosing achalasia. CTS consulted recommendingballoon dilation of esophageal sphincter, GI performed esophageal Botox injection and PEG tube placement. Multidisciplinary meeting held to establish patient support network and plan for outpatient follow up, however, patient developed refeeding syndrome treated with repletion of phosphorous (IV and Enteral) for multiple days. The patient's hospital course was complicated with urosepsis, requiring pressor support and transfer to the MICU. Patient was stabilized and transferred to the floor, however,patient developed respiratory distress, rapid called, rapidly decompensated and was transferred backto MICU where he was immediately intubated. CT thorax showing bilateral effusions new from prior CT and findings consistent with ARDS and esophageal distension. GI consulted and recommended NGT placement into the esophagus and suction the fluid material and remove NGT afterwards. Several SBTs have been attempted but patient has failed. Currently on Jevity. Would appreciate evaluation and recommendations. Malnutrition Assessment: Nutritional Diagnosis: Severe protein-calorie malnutrition SGA Rating: Severely Malnourished History of Present Illness: Tahir Sanches Jr. is a 35 year old male with PMH Achalasia Type I, known to GI service s/p multiple EGD's originally for DHT placement s/p DHT removal by the patient,Esophageal Manometry to confirm dx of Achalasia, most recent EGD on 10/27/20 for botox injection as therapy for achalasia and PEG placement for care home nutritional support patient's clinical course c/brefeeding syndrome now in MICU s/p treatment for urosepsis, Intubated for respiratory distress and CT findings concerning for ARDS. Now cultures growing yeast, patient is on micafungin with pending fungal cx. GI re-consulted for: to discuss potential need for evacuation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 0.45% NaCl (1/2NS) IV infusion 1,000 mL, 1,000 mL, IV Infusion, CONTINUOUS, Alisa Otoole DO, Last Rate: 50 mL/hr at 11/04/20 0800, Dose/Rate Verify at 11/04/20 0800 dexMEDEtomidine 400 mcg in 0.9 % NaCl 100 mL (PRECEDEX) RTU IV infusion, 0.2-1.5 mcg/kg/hr, IV Infusion, TITRATE, Brooks Wolf DO, Stopped at 11/03/20 2200 dextrose 50 % in water (D50W) injection 50 mL, 50 mL, Slow IV Push, PRN, Alisa Otoole DO, 50 mL at 11/04/20 0712 glucagon (GLUCAGEN DIAGNOSTIC KIT) injection 1 mg, 1 mg, Intramuscular, PRN, Alisa Otoole DO NORepinephrine (LEVOPHED) 32 mg in NaCl 0.9% (NS) 250 mL infusion, 0.05-1.5 mcg/kg/min, IV Infusion, TITRATE, Gianni Ferrera MD, Last Rate: 12.6 mL/hr at 11/04/20 0720, 0.6 mcg/kg/min at propofoL IV infusion, 5-50 mcg/kg/min, IV Infusion, TITRATE, Gianni Ferrera MD, Last Rate: 6.72 mL/hr at 11/04/20 0935, 25 mcg/kg/min at 11/04/20 0935 hydrOXYzine (ATARAX) 10 mg/5 mL solution 10 mg, 10 mg, Oral, Q6HPRN, Gianni Ferrera MD, 10 mg at 11/02/20 0407 NaCl 0.9% (NS) injection 10 mL, 10 mL, Slow IV Push, PRN, Rosey Hunt MD calcium carbonate 500 mg RINCON CA/5 mL 500 mg/5 mL (1,250 mg/5 mL) suspension 500 mg, 500 mg, Enteral, BID MEALS, Pedro Oliva MD, 500 mg at 11/04/20 0939 ergocalciferol (vitamin D2) (CALCIDOL) 200 mcg/mL (8,000 unit/mL) oral drops 2,000 Units, 2,000Units, Oral, DAILY, Pedro Oliva MD, 2,000 Units at 11/04/20 0939 foLIC acid (FOLATE) tablet 1 mg, 1 mg, Enteral, DAILY, Pedro Oliva MD, 1 mg at 11/04/20 0939 methocarbamol (ROBAXIN) 50 mg/mL oral suspension 1,000 mg, 1,000 mg, Enteral, TID, Pedro Oliva MD, 1,000 mg at 11/04/20 09 multivitamin (CENTRUM) solution 15 mL, 15 mL, Enteral, DAILY, Pedro Oliva MD, 15 mL at 11/04/20939 pantoprazole (PROTONIX) 2 mg/mL oral suspension 40 mg, 40 mg, Enteral, BID, Pedro Oliva MD, 40 mg at 11/04/20 09 vitamin B-12 (CYANOCOBALAMIN) tablet 1,000 mcg, 1,000 mcg, Enteral, DAILY, Pedro Oliva MD, 1,000 mcg at 11/04/20 09 HYDROcodone-acetaminophen (HYCET) 7.5-325 mg/15 mL solution 7.5 mg, 7.5 mg, Enteral, Q6HPRN, Pedro Oliva MD, 7.5 mg at 11/02/20 023 risperiDONE (RISPERDAL M-TAB) disintegrating tablet 2 mg, 2 mg, Enteral, BID, Pedro Oliva MD,2 mg at 11/04/20 0940 thiamine (VITAMIN B1) tablet 100 mg, 100 mg, Enteral, BID, Pedro Oliva MD, 100 mg at 939 lidocaine (LIDODERM) 5 % (700 mg/patch) patch 1 Patch, 1 Patch, Topical, DAILY, Vandana Lei MD, Stopped at 11/04/20 0900 Facility-Administered Medications Ordered in Other Encounters: propofoL IV infusion, , , ONCE INTRA PROCEDURE, Gianni Mendenhall MD, 70 mg at 11/02/20 0617 succinylcholine (QUELICIN) injection, , , ONCE INTRA PROCEDURE, Gianni Mendenhall MD, 100 mg at 11/02/20 0617 Allergies No Known Allergies Physical Exam BP 106/81 | Pulse 84 | Temp 37 C (98.6 F) | Resp 19 | Ht 1.651 m (5' 5") | Wt 44.8 kg (98 lb 11.2 oz) | SpO2 100% | BMI 16.42 kg/m Mental Status Oriented to Time, Place & Person: no, intubated Mood, Affect: intubated Visual Acuity: unable, intubated Pupils: OD: dark: 3 mm light: 2 mm rAPD: No OS: dark: 3 mm light: 2 mm rAPD: No Intraocular Pressure: Patient administered 1 drop of proparacaine into each eye. OD: 6 mmHg OS: 8 mmHg Motility: Unable, intubated Confrontational Visual Field unable, intubated Neuro: CN V1, V2, V3: unable, intubated indirect ophthalmoscopy, portable slitlamp and penlight OD: External: wnl Lids and Lashes: lagophthalmos Conjunctiva/Sclera: quiet Cornea: dry, 2+ PEEs Anterior Chamber: deep, quiet Iris: no lesion Lens: clear OS: External: wnl Lids and Lashes: lagophthalmos Conjunctiva/Sclera: quiet Cornea: dry, 2+ PEEs, and Anterior Chamber: deep, quiet Iris: no lesion Lens: clear Dilated Fundus Exam: Patient dilated with 1 drop of 2.5% phenylephrine and 1% tropicamide into each eye at 12:48 PM. OD: Optic Nerve: pink and sharp C/D: 0.75 Macula: attached and good foveal reflex Vessels: normal caliber Periphery: attached, normal appearance Vitreous: clear OS: Optic Nerve: pink and sharp C/D: 0.75 Macula: attached and good foveal reflex Vessels: normal caliber Periphery: attached, normal appearance Vitreous: clear Radiology: Hospital Encounter on 10/19/20 US ABDOMEN COMPLETE Narrative US ABDOMEN COMPLETE INDICATION: elevated liver enzymes COMPARISON: Correlation with same day abdominal CT TECHNIQUE: Grayscale and color Doppler images of the upper abdomen were obtained with bilingual call center representative images obtained. FINDINGS: The liver measures 12.0 cm in length and demonstrates normal architecture. The main portal vein demonstrates hepatopetal flow. Large volume upper abdominal ascites is seen. Physiologic distension of the gallbladder. Echogenic sludge with no definite shadowing stones. The gallbladder wall is diffusely thickened measuring 3-4 mm. A negative Sonographic Calle's sign was elicited during the exam. The common bile duct is normal in caliber measuring 4 mm. The pancreas is obscured and poorly evaluated. The spleen measures 9.5 cm. The left and right kidney measure 9.3 cm in length and demonstrates normal echotexture and blood flow on color Doppler images. No focal renal lesions, hydronephrosis or renal calculi are seen. No organized perinephric collections are visualized. Thickened small bowel loops are partially seen in the upper abdomen. The partially imaged abdominal aorta is normal in diameter at 1.6 cm. Impression Unremarkable sonographic appearance of the liver and kidneys. No evidence of intrahepatic or extrahepatic biliary ductal dilatation. No focal liver lesions. Distended gallbladder with echogenic sludge and no definite shadowing stones. Minimal mural thickening with negative sonographic Calle sign. Findings are unlikely to represent acute cholecystitis. Recommend follow-up HIDA scan as clinically indicated. Large volume of upper abdominal ascites. Mildly thickened small bowel loops in the upper abdomen can be reactive or represent enteritis. Preliminary Report Dictated by Resident: Sienna Walker MD., have reviewed this study and agree with the above report. CT THORAX W CONTRAST Narrative CT SCAN OF THE CHEST WITH CONTRAST TECHNIQUE: Multidetector helical CT scan of the chest was performed following the administration of iodinated intravenous contrast. Coronal and sagittal reformats were also submitted for review. CLINICAL INFORMATION: Esophageal perforation. COMPARISON: 08/23/2019 FINDINGS: Lungs and pleura: Interval development of peripheral ground glass opacities within the right upper and lower lobes. There is also very mild bibasilar opacities within the left lung. Interval development of small to moderate bilateral pleural effusions with associated atelectasis. Previously described subpleural nodules are obscured by airspace disease and effusions. Airways: Central airways are patent. Mediastinum: Very prominent distention of the thoracic esophagus containing ingested material and fluid with tapering at the GE junction is unchanged. No evidence of pneumomediastinum to suggest perforation. Cardiovascular: No cardiomegaly. No pericardial effusion. No discernible prominent coronary calcifications. Normal caliber of the thoracic aorta. Left PICC or midline catheter terminates in the mid to distal SVC. Lower neck and chest wall: Cachexia and body wall anasarca. Small amount of gas within the right axillary region may represent small amount of gas within the axillary veins and may be related to injection. Upper abdomen: Interval development of moderate to large volume ascites. Percutaneous gastrostomy tube is in place. See separately dictated CT abdomen pelvis report for additional findings. Bones: Partially visualized exophytic sclerotic extending medially from the proximal left humerus may represent an or osteochondroma (302:42). Impression 1. Overall, no significant change in prominent distention of the thoracic esophagus containing large amount of ingested material. No evidence of pneumomediastinum to suggest perforation. 2. Interval development of bilateral [id number] pleural effusions with associated atelectasis. 3. Interval development of patchy bilateral groundglass opacities most prominent within the right upper lobe. Findings are nonspecific but may represent infectious process including Covid 19. 4. Previously described subpleural nodule is obscured by effusions. Attention on follow-up. 5. Partially visualized exophytic sclerotic lesion extending medially from proximal left humerus may represent and osteochondroma. Recommend dedicated radiographs to further characterize. 6. Cachexia. 7. Interval development of upper abdominal ascites. See separately dictated CT abdomen and pelvis report for additional and CT ABDOMEN PELVIS W CONTRAST Narrative CT ABDOMEN AND PELVIS WITH CONTRAST REASON FOR STUDY: acute drop in hemoglobin, hematuria COMPARISON: None available. TECHNIQUE: Multidetector axial CT images from lung bases through proximal thighs after IV administration of nonionic iodinated contrast material. Coronal and sagittal MPR images also generated. INTRAVENOUS CONTRAST ADMINISTRATION (mL Omnipaque 350): per EMR. FINDINGS: Lower chest: See separately dictated CT chest report for thoracic findings. Evaluation of abdominal and pelvic structures is limited due to cachexia and body wall anasarca. ABDOMEN AND PELVIS Liver: Liver measures 14.4 cm in craniocaudal dimension. No focal hepatic lesion identified. Normal hepatic surface contour. Biliary Tract/GB: Elongated gallbladder without radiopaque cholelithiasis. No radiopaque cholelithiasis. Spleen: No splenomegaly. Pancreas: Within normal limits. Adrenals: Within normal limits. Kidneys: Kidneys enhance symmetrically. No hydronephrosis, nephrolithiasis or renal mass. Bowel: Moderate gaseous distention of the rectum and rectosigmoid with mild to moderate stool burden. Appendix is not clearly visualized. Small bowel appears mildly edematous. Percutaneous gastrostomy tube tip appears to technique of the bladder lumen. Hyperenhancing gastric rugae with suggestion of mural edema. Peritoneum: Large volume ascites. No pneumoperitoneum. Vasculature: Patent abdominal vasculature. Narrowing of the celiac trunk origin at the level of the diaphragmatic marion with mild poststenotic dilatation. Lymph Nodes: No lymphadenopathy. Pelvic organs: Urinary bladder is normal for the degree of distention. Moderate to large fluid attenuating structure within the right hemiscrotum that the represent hydrocele. Additional subcentimeter cystic region in the left hemiscrotum is nonspecific. Testes are not well delineated. Scrotum is not fully within [id number]. Abdominal/Pelvic Wall: Cachexia and body wall anasarca. Large prominent vessels within the left flank and axillary region (for example 304:5). BONES: No acute or suspicious osseous abnormality. Relatively shallow right acetabulum probably represents hip dysplasia. Impression 1. Redemonstration of partially visualized distended esophagus with tapering at the GE junction consistent with history of achalasia. 2. Interval development of volume ascites and body wall anasarca. 3. Cachexia. 4. Moderate gaseous distention of the rectum and rectosigmoid with moderate amount of admixed fecal material. 5. Fluid attenuating structure within the right hemiscrotum thought to represent moderate to large hydrocele. Scrotal ultrasound can be performed to further evaluate. 6. Additional findings as above XR CHEST 1 VW Narrative EXAM: XR CHEST 1 VW 11/02/2020 7:50 AM HISTORY: 35 years-old Male with post intubation . TECHNIQUE: Portable AP view of the chest. COMPARISON: CXR 11/02/2020 3:01 AM. FINDINGS: Lines and tubes: Interval intubation with endotracheal tube tip projecting 3.4 cm above the geno. Similar appearance of left-sided PICC tip projecting at the mid to distal SVC. Cardiomediastinal: The cardiomediastinal silhouette is unchanged. Dilated esophagus is redemonstrated. Lungs and pleura: Similar appearance of bilateral hazy interstitial opacities with bilateral mild pleural effusions. Musculoskeletal: No acute skeletal abnormality. Impression Interval intubation with endotracheal tube tip projects 3.47 m above the geno. Bilateral patchy lung opacities suggest ARDS. Preliminary Report Dictated by Resident: Sienna Ivy MD., have reviewed this study and agree with the above report. XR CHEST 1 VW Narrative EXAM: XR CHEST 1 VW 11/02/2020 3:35 AM HISTORY: 35 years-old Male with SOB . TECHNIQUE: Portable AP view of the chest. COMPARISON: CXR 10/31/2020. FINDINGS: Lines and tubes: Left-sided PICC catheter tip projects at the mid to distal SVC. Cardiomediastinal: The cardiomediastinal silhouette is blunted bilaterally. A dilated esophagus is seen consistent with patient's history of achalasia. Lungs and pleura: Interval significant worsening in bilateral lung field hazy opacities with air bronchograms. Bilateral mild pleural effusions are seen. Musculoskeletal: No acute skeletal abnormality. Impression Interval significant worsening in bilateral hazy opacities concerning for ARDS. Preliminary Report Dictated by Resident: Sienna Ivy MD., have reviewed this study and agree with the above report. XR CHEST 1 VW Narrative EXAM: XR CHEST 1 VW HISTORY: s/p PICC line COMPARISON: 10/31/2020 FINDINGS: Lines/Tubes: Left PICC line terminates at distal SVC level. Lungs: Mild prominent perihilar vessels. Retrocardiac opacity and small left pleural effusion noted. No pneumothorax. Heart/Mediastinum: The cardiomediastinal silhouette is normal for technique. Bones: No acute osseous abnormality is seen. Impression 1. Left PICC line terminates at level of mid SVC. 2. Retrocardiac opacity and small left effusion again seen. XR CHEST 1 VW Narrative EXAM: XR CHEST 1 VW HISTORY: fever r/o pneumonia COMPARISON: None. FINDINGS: Ill-defined densities in the left lung base are suspicious for pneumonia, associated with a pleural effusion. The horizontal density in the right lung base is probably due to atelectasis. The lungs are well expanded and clear otherwise. The heart and great vessels are normal. 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, incomplete closure of palpebral fissure - patient intubated, does not completely close eyes - PEEs and mucoid discharge on SLE OS (left eye) > OD (right eye) - erythromycin salima QID OU (both eyes) while intubated with eyes incompletely closed Recommendations: - no acute ophthalmic intervention at this time - if not already performed, repeat blood cultures, urine cultures, catheter tip cultures - continue systemic treatment for fungal bacteremia with antifungals per ID/primary - if patient remains inpatient in 2 weeks (~11/17/20) or if new signs/symptoms develop concerning for endophthalmitis, please page on-call pager for re-evaluation This patient was discussed with faculty demonstrator electric gas appliances The management plan was discussed with the patient and the consulting team. Tony Olmos MD Department of Ophthalmology MAKER Associated attestation - Daniel Montelongo MD - 11/18/2020 9:51 AM CSTI discussed and examined the patient with resident Dr. Olmos. I agree with the resident note as written. MD Teddy Mirza Brad - 10/26/2020 1:06 PM CSTAssociated Order(s): CONSULT PASTORAL CARE Organic Chemistry Professor visited with the patient per his request to speak to a braille transcriber. A patient care technicianwas also present, at the request of the patient. Organic Chemistry Professor provided presence, empathic and reflectivelistening and encouragement. Patient faces two surgeries tomorrow (Tuesday, Oct.27) and asked for prayer for that. Patient shared his recent medical journey openly and with some tears. Patient displayed a strong, well-grounded Protestant lili. Patient expressed a tiredness with his health, his inability to eat, and his dependence on others for his care. Patient specifically wanted prayer that the surgeries would be directed by God and that his body would accept the procedures well. Organic Chemistry Professor prayed and the patient was very thankful. Patient asked if he could get more coloring materials. Organic Chemistry Professor later returned with paper and a notepad. As always, chaplains remain available to provide pastoral care as needed. Zafar Espinal MDiv Organic Chemistry Professor [facility] Dept. Of Pastoral Care Office: [phone] signed by Zafar Espinal at 10/26/2020 2:00 PM Ariella Kingston MD - 10/23/2020 4:32 PM CSTAssociated Order(s): CONSULT PSYCHIATRY DEPARTMENT OF PSYCHIATRY AND BEHAVIORAL SCIENCE Inpatient Psych/Consult Evaluation [id number] Tahir Sanches Jr. 1985 [address] [facility] [id number] 10/23/2020 REASON FOR CONSULT: "Tahir Sanches Jr. is a 35 year old male with PMH of bipolar and schizophrenia, reporting hallucinations (visual) despite Geodon treatment. Patient does not have reliable oral access and IM would be preferred route of medications at this time. Patient has a history of noncompliance and leaving A MA, and patient attributes these decisions to his bipolar/schizophrenia. Please assist with medical management of psychiatric illness." REQUESTING PHYSICIAN/ CONTACT INFORMATION: Drs. Oliva and Robin CHIEF COMPLAINT: "I'm depressed" HISTORY OF PRESENT ILLNESS: (severity, timing, modifying factors, quality, duration/clinical course,context, associated signs and symptoms) Tahir Sanches Jr. is a 35 year old male with a past psychiatric history of schizophrenia, reported bipolar disorder and polysubstance use who is admitted to the hospital for evaluation of achalasia. Psychiatry was consulted for medication management. Patient is well-known to consult team, please refer to previous notes for further history. Today, patient expresses frustration about his condition and reports feeling depressed. He describesthat he used to be independent and over the past year has lost 80-100 pounds because of this condition. He reports feeling like "the doctors are working against me and are out to get me". He explains further by emphasizing his frustration and being confused about the treatment plan because different doctors are telling him different things. He feels that at times, his input and opinions are not being heard. He describes that he has been told to adhere to an all-liquid diet, but states that when he only consumes liquids, he constantly vomits. He expresses that he can keep solid foods such as potatochips down. Patient reports he has been "having manic episodes real bad". However, when asked to clarify, he describes is that he is uncertain and anxious about what will happen. He reports he has onlyslept about two hours and taken some naps in the past five days. He reports, "I'm here to get better", but expresses that he feels confused, frustrated, worried and depressed, due to the conflicting plans he is hearing from different providers and generally frustrated about his condition and the limitations, and how physically weak he feels and therefore is unable to walk. When asked about hallucinations, he reports he sees people passing by in the room, including currently, and that it is distressing to him at times. He knows they shouldn't be there. He denies any auditory hallucinations, stating "I don't have that". Patient adamantly denies SI or HI. Describes that he requested scissors so he could trim his garvin, and jokingly expressed to the nurse that he might as well stab himself in the neck [with the scissors], but expresses that he did not mean this and just said it out of frustration. Attended MDM meeting for patient later in afternoon. Briefly talked with patient's family via phone.They reported that patient received the best psychiatric care while he was incarcerated and after that followed with [facility]. Patient's cousin reports that patient was noncompliant with psychiatric f ollow up and filling prescriptions. Patient's cousin works for [employer] [place]. Patient's family voiced concern about his drug use, and their concern about relapse. Patient reports "cocaine is the last thing I'm thinking about now" and reports that due to his physical limitations, he won't be able to use drugs the way he used to and has no desire to do so because he knows if he does, then the doctors won't proceed with his treatment and "this will all be a waste". PAST PSYCHIATRIC HISTORY: Diagnoses: schizophrenia, self reported bipolar, substance abuse Inpatient: unknown Outpatient: [facility] Current Psychiatric Meds: Zoloft 200 mg daily, Geodon 80 mg BID, Guanfacine 1 mg BID, Depakote EC tab 750 mg BID, Ativan 0.5 mg BID(off medication last 2 months) Previous Psychiatric Meds: unknown PSYCHIATRIC REVIEW OF SYSTEMS: Depression: see HPI Tiffany: see HPI Anxiety/Panic: see HPI A/V Hallucinations: see HPI Delusions: DENIES OCD: DENIES Suicidal Ideation: DENIES Homicidal Ideation: DENIES SUBSTANCE USE: Alcohol: 1-2 beers every few months Tobacco: 5 pack year smoking history Marijuana: 3x/month, last use 2 months ago Amphetamine: previous cocaine, meth use PAST MEDICAL HISTORY: Past Medical History: Diagnosis Date Bipolar 1 disorder GERD (gastroesophageal reflux disease) Manic affective disorder with recurrent episode Schizophrenia Past Surgical History: Procedure Laterality Date ESOPHAGEAL MANOMETRY (SHX) N/A 10/21/2020 Surgeon: Suresh Livingston MD; Location: [facility] ([facility]) OR Location ESOPHAGOGASTRODUODENOSCOPY N/A 10/14/2020 Surgeon: Peterson Florence MD; Location: Endoscopy ([facility]) OR Location ESOPHAGOGASTRODUODENOSCOPY N/A 10/21/2020 Surgeon: Suresh Livingston MD; Location: Endoscopy ([facility]) OR Location MEDICATIONS: Current Facility-Administered Medications Medication Dose Route Frequency Last Rate Last Admin potassium, sodium phosphates (PHOS-NAK) 280-160-250 mg packet 1 Packet 1 Packet Oral QID sodium phosphate 12.8 mmol in D5W 250 mL piggyback 12.8 mmol IV Piggyback ONCE 12.8 mmol at 10/23/20 1357 HYDROcodone-acetaminophen (HYCET) 7.5-325 mg/15 mL solution 5 mg 5 mg Oral Q6HPRN 5 mg at 10/23/20 1510 morpHINE injection 2 mg 2 mg Slow IV Push Q4HPRN 2 mg at 10/23/20 1216 atropine injection 0.5 mg 0.5 mg IV Push PRN - SEE INSTRUCTIONS D5W-LR IV infusion 1,000 mL 1,000 mL IV Infusion CONTINUOUS 125 mL/hr at 10/23/20 0814 Dose/Rate Verify at 10/23/20 0814 dextrose 50 % in water (D50W) injection 25 mL 25 mL Slow IV Push PRN glucagon (GLUCAGEN DIAGNOSTIC KIT) injection 1 mg 1 mg Intramuscular PRN lidocaine (LIDODERM) 5 % (700 mg/patch) patch 1 Patch 1 Patch Topical DAILY 1 Patch at 10/20/20 0917 lidocaine 1% (PF) (XYLOCAINE) injection 5 mL 5 mL Subcutaneous PRN methocarbamoL (ROBAXIN) injection 1,000 mg 1,000 mg Intravenous Q8H 1,000 mg at 10/23/20 1357 NaCl 0.9% (NS) injection 10 mL 10 mL Slow IV Push PRN nicotine (NICODERM) 7 mg/24 hr patch 1 Patch 1 Patch Topical DAILY 1 Patch at 10/23/20 0817 pantoprazole (PROTONIX) 40 mg in NaCl 0.9% (NS) 100 mL MINI-BAG 40 mg IV Piggyback Q12H 40 mgat 10/23/20 0814 [START ON 10/25/2020] penicillin g benzathine (BICILLIN L-A) injection 2.4 Million Units 2.4 Million Units Intramuscular QWEEKLY risperiDONE (RisperDAL M-TAB) disintegrating tablet 1 mg 1 mg Enteral QHS 1 mg at 10/22/202049 SIDE EFFECTS/ALLERGIES: No Known Allergies SOCIAL HISTORY: Lives with parents in [place], [place]. Legal issues: previously incarcerated, for shoplifting and drug possession. does not Receive SSI/Disability. FAMILY MEDICAL HISTORY: Family History Problem Relation Age of Onset Bipolar disorder Mother Schizophrenia Mother Diabetes Mother Hypertension Mother Hypertension Father Diabetes Father No Significant Medical Problems Sister VITAL SIGNS: BP 105/69 (BP Location: Right arm, Patient Position: Supine) | Pulse (!) 48 | Temp 36.2 C (97.2 F) (Oral) | Resp 16 | Ht 5' 5" (1.651 m) | Wt 88 lb (39.9 kg) | SpO2 98% | BMI 14.64 kg/m LAB DATA CBC BMP PT/INR WBC (10*3/L) Date Value 10/23/2020 3.47 (L) NA (mmol/L) Date Value 10/23/2020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 ?: (not recorded) Exposure Date: (not recorded) Chief Complaint: Chief Complaint Patient presents with Other left AMA from inpatient but ride didn't come get him, pain "everywhere" History of Present Illness: HPI Tahir Sanches Jr. is a 35 year-old male with PMHx of achalasia, bipolar 1, schizophrenia, drug use (marijuana, cocaine, amphetamines), presenting to the ER wanting to be readmitted. Patient signed out AMA about 2.5 hours ago (signed paperwork at 11:50 pm on 10/18/20) and was waiting for his ride. Patient's ride didn't come, however, and then patient decided he would just "check back in." Patient reports that he checked out because he wasn't allowed to eat the fast food that his sister had ordered for him secondary to his achalasia. Past Medical History/Immunizations: Past Medical History: Diagnosis Date Bipolar 1 disorder GERD (gastroesophageal reflux disease) Manic affective disorder with recurrent episode Schizophrenia Allergies: No Known Allergies Past Social History: Tobacco Use Current Every Day Smoker. Smokeless Tobacco: Never used smokeless tobacco. Comments: 1/2 pack/ day Past Surgical History: Past Surgical History: Procedure Laterality Date ESOPHAGOGASTRODUODENOSCOPY N/A 10/14/2020 Surgeon: Peterson Florence MD; Location: [facility] ([facility]) OR Location Review of Systems: Review of Systems Constitutional: Positive for fatigue and unexpected weight change. Eyes: Negative for photophobia and visual disturbance. Respiratory: Negative for apnea, cough, choking, chest tightness, shortness of breath, wheezing and stridor. Cardiovascular: Negative for chest pain, palpitations and leg swelling. Gastrointestinal: Negative for abdominal distention, abdominal pain, anal bleeding, constipation, diarrhea, nausea and vomiting. Genitourinary: Negative for dysuria. Neurological: Negative for dizziness, tremors, seizures, syncope, facial asymmetry, speech difficulty, weakness, light-headedness, numbness and headaches. Physical Exam: ED Triage Vitals [10/19/20 0232] Weight 44 kg (97 lb) Actual or estimated Height BP 120/88 Pulse 60 Resp 18 Temp 36.8 C (98.2 F) Temp src SpO2 98 % Measured on Physical Exam Vitals signs and nursing note reviewed. Constitutional: Appearance: He is well-developed. He is ill-appearing. Comments: Patient cachectic HENT: Head: Normocephalic and atraumatic. Eyes: General: Right eye: No discharge. Left eye: No discharge. Conjunctiva/sclera: Conjunctivae normal. Pupils: Pupils are equal, round, and reactive to light. Cardiovascular: Rate and Rhythm: Normal rate and regular rhythm. Heart sounds: Normal heart sounds. No murmur. No friction rub. No gallop. Pulmonary: Effort: Pulmonary effort is normal. No respiratory distress. Breath sounds: Normal breath sounds. No stridor. No wheezing or rales. Chest: Chest wall: No tenderness. Abdominal: General: Bowel sounds are normal. There is no distension. Palpations: Abdomen is soft. There is no mass. Tenderness: There is no abdominal tenderness. There is no guarding or rebound. Hernia: No hernia is present. Musculoskeletal: Normal range of motion. General: No deformity. Radiology: No results found for this visit on 10/19/20. Lab Results (24h): Recent Results (from the past 24 hour(s)) MAGNESIUM Collection Time: 10/18/20 4:28 AM Result Value Ref Range MAGNESIUM 1.7 1.7 - 2.4 mg/dL PHOSPHORUS Collection Time: 10/18/20 4:28 AM Result Value Ref Range PHOSPHORUS 2.6 2.5 - 5.0 mg/dL CBC WITH DIFF Collection Time: 10/18/20 4:28 AM Result Value Ref Range WBC 3.00 (L) 4.20 - 10.70 10*3/L RBC 3.76 (L) 4.26 - 5.52 10*6/L HGB 10.4 (L) 12.2 - 16.4 g/dL HCT 31.0 (L) 38.4 - 49.3 % MCV 82.4 81.7 - 95.6 fL MCH 27.7 26.1 - 32.7 pg MCHC 33.5 31.2 - 35.0 g/dL RDW-SD 41.5 38.5 - 51.6 fL RDW-CV 13.8 12.1 - 15.4 % PLT 11 (LL) 150 - 328 10*3/L MPV IPF % 7.1 1.2 - 10.7 % NRBC/100 WBC 0.0 0.0 - 10.0 /100 WBCs NRBC x10^3 <0.01 10*3/L GRAN MAT (NEUT) % 67.7 % IMM GRAN % 1.00 % LYMPH % 24.7 % MONO % 6.3 % EOS % 0.0 % BASO % 0.3 % GRAN MAT x10^3(ANC) 2.03 1.99 - 6.95 10*3/uL IMM GRAN x10^3 0.03 0.00 - 0.06 10*3/uL LYMPH x10^3 0.74 (L) 1.09 - 3.23 10*3/uL MONO x10^3 0.19 (L) 0.36 - 1.02 10*3/uL EOS x10^3 <0.03 (L) 0.06 - 0.53 10*3/uL BASO x10^3 <0.03 0.01 - 0.09 10*3/uL IVAN CELLS 2+ (A) (none) SCHISTOCYTES 1+ (A) BANDS Increased (A) TOXIC CHANGES Present (A) BASIC METABOLIC PANEL (NA, K, CL, CO2, GLUCOSE, BUN, CREATININE, CA) Collection Time: 10/18/20 4:28 AM Result Value Ref Range NA 133 (L) 135 - 145 mmol/L K 4.2 3.5 - 5.0 mmol/L CL 106 98 - 108 mmol/L CO2 TOTAL 24 23 - 31 mmol/L AGAP 3 2 - 16 BUN 20 7 - 23 mg/dL GLUCOSE 52 (L) 70 - 110 mg/dL CREATININE 0.27 (L) 0.60 - 1.25 mg/dL CALCIUM 7.3 (L) 8.6 - 10.6 mg/dL eGFR Calculation (Non-) 383.1 mL/min/1.73m2 eGFR Calculation () 464.3 mL/min/1.73m2 POCT GLUCOSE (AUTOMATED) Collection Time: 10/18/20 2:28 PM Result Value Ref Range POCT GLU 28 (LL) 70 - 110 mg/dL POCT GLUCOSE (AUTOMATED) Collection Time: 10/18/20 2:52 PM Result Value Ref Range POCT GLU 202 (H) 70 - 110 mg/dL Orders and Treatments: No orders of the defined types were placed in this encounter. No orders of the defined types were placed in this encounter. ED COURSE Tahir Sanches Jr. is a 35 year-old male presenting after leaving AMA and now wanting to be readmitted. Patient discussed with admitting physician and accepted for readmission. MDM: Coding Scoring Tools: No data recorded Diagnosis/Impression: ICD-10-CM ICD-9-CM 1. Achalasia K22.0 530.0 2. Pain R52 780.96 3. Esophageal dysphagia R13.10 787.20 4. Severe protein-calorie malnutrition E43 262 5. Cachexia R64 799.4 6. Hypoglycemia E16.2 251.2 7. Fever, unspecified fever cause R50.9 780.60 8. Hypokalemia E87.6 276.8 9. Hypocalcemia E83.51 275.41 10. Hypophosphatemia E83.39 275.3 Disposition/Condition: ED Disposition ED Disposition Condition Comment Admit - Inpatient Is this patient COVID positive or a patient under investigation (PUI)?: No Treatment Team: MIMI [[id number]] ADMIT TO: Other-See Comments Comment: medicine Primary reason for admission: Achalasia [[id number]] Is (or was) this a planned re-admission?: No Discharge Medications: Patient's Medications No medications on file Follow-up: Electronically signed by: Genny Rosas MD 10/19/2020 4:20 AM MAKER documented in this encounter Miscellaneous Notes Care Plan - Vita Horne RN - 11/23/2020 11:54 AM SODA MAKER Problem: Discharge Planning Goal: Absence of venous thromboembolism Outcome: Progressing as expected Goal: Adequate for discharge Outcome: Progressing as expected Goal: Effective communication Outcome: Progressing as expected Problem: Falls, Risk of Goal: Absence of falls Outcome: Progressing as expected Problem: Pain Goal: Control of pain at or below patient's documented comfort goal Outcome: Progressing as expected Goal: Reduction in pain sensation Outcome: Progressing as expected Problem: Skin integrity Impaired (Risk or Actual) Goal: Wound healing Outcome: Progressing as expected Goal: Prevention of new skin breakdown Outcome: Progressing as expected are Plan - Alyx Hernandez RN - 11/22/2020 11:11 PM SODA MAKER Problem: Falls, Risk of Goal: Absence of falls Outcome: Progressing as expected Problem: Pain Goal: Control of pain at or below patient's documented comfort goal Outcome: Progressing as expected Goal: Reduction in pain sensation Outcome: Progressing as expected Problem: Discharge Planning Goal: Absence of venous thromboembolism Outcome: Progressing as expected Goal: Adequate for discharge Outcome: Progressing as expected Goal: Effective communication Outcome: Progressing as expected Problem: Skin integrity Impaired (Risk or Actual) Goal: Wound healing Outcome: Progressing as expected Goal: Prevention of new skin breakdown Outcome: Progressing as expected are Plan - Vita Horne RN - 11/22/2020 9:37 AM SODA MAKER Problem: Discharge Planning Goal: Adequate for discharge Outcome: Not progressing as expected Goal: Effective communication Outcome: Not progressing as expected Problem: Discharge Planning Goal: Absence of venous thromboembolism Outcome: Progressing as expected Problem: Falls, Risk of Goal: Absence of falls Outcome: Progressing as expected Problem: Pain Goal: Control of pain at or below patient's documented comfort goal Outcome: Progressing as expected Goal: Reduction in pain sensation Outcome: Progressing as expected Problem: Skin integrity Impaired (Risk or Actual) Goal: Wound healing Outcome: Progressing as expected Goal: Prevention of new skin breakdown Outcome: Progressing as expected are Suzan George RN - 11/22/2020 2:46 AM SODA MAKER Problem: Falls, Risk of Goal: Absence of falls Outcome: Progressing as expected Problem: Pain Goal: Control of pain at or below patient's documented comfort goal Outcome: Progressing as expected Goal: Reduction in pain sensation Outcome: Progressing as expected Problem: Discharge Planning Goal: Absence of venous thromboembolism Outcome: Progressing as expected Goal: Adequate for discharge Outcome: Progressing as expected Goal: Effective communication Outcome: Progressing as expected are Plan - Lynda Menchaca RN - 11/21/2020 12:11 PM SODA MAKER Problem: Falls, Risk of Goal: Absence of falls Outcome: Progressing as expected Problem: Pain Goal: [...] Effective communication Outcome: Progressing as expected Problem: Nutrition Deficit Goal: Adequate nutritional intake Outcome: Progressing as expected Problem: Skin integrity Impaired (Risk or Actual) Goal: Wound healing Outcome: Progressing as expected Goal: Prevention of new skin breakdown Outcome: Progressing as expected Problem: Mobility - Impaired Goal: Able to achieve maximum mobility level Outcome: Progressing as expected Problem: Respiratory Function - Impaired Goal: Adequate oxygenation Outcome: Progressing as expected Goal: Adequate work of breathing Outcome: Progressing as expected Problem: Mental Status - Impaired Goal: Able to achieve maximum level of cognitive ability Outcome: Progressing as expected are Plan - India Gautam RN - 11/21/2020 6:31 AM SODA MAKER Problem: Falls, Risk of Goal: Absence of falls Outcome: Progressing as expected Problem: Pain Goal: Control of pain at or below patient's documented comfort goal Outcome: Progressing as expected Problem: Nausea/Vomiting Goal: Absence of nausea/vomiting Outcome: Progressing as expected Problem: Discharge Planning Goal: Absence of venous thromboembolism Outcome: Progressing as expected Problem: Nutrition Deficit Goal: Adequate nutritional intake Outcome: Progressing as expected Problem: Skin integrity Impaired (Risk or Actual) Goal: Wound healing Outcome: Progressing as expected Goal: Prevention of new skin breakdown Outcome: Progressing as expected Problem: Mobility - Impaired Goal: Able to achieve maximum mobility level Outcome: Progressing as expected Problem: Respiratory Function - Impaired Goal: Adequate oxygenation Outcome: Progressing as expected ursing Note - India Gautam RN - 11/20/2020 8:00 PM CSTReceived patient resting on bed with speech slurred, wearing mittens but patient removed it. Patient was not pulling any lines . IV on the left arm , site wrapped with kerlex, and Jevity feeding inprogress via peg. are Plan - Vita Horne RN - 11/20/2020 8:27 AM SODA MAKER Problem: Falls, Risk of Goal: Absence of falls Outcome: Progressing as expected Problem: Pain Goal: Control of pain at or below patient's documented comfort goal Outcome: Progressing as expected Goal: Reduction in pain sensation Outcome: Progressing as expected Problem: Nausea/Vomiting Goal: Absence of nausea/vomiting Outcome: Progressing as expected Problem: Discharge Planning Goal: Absence of venous thromboembolism Outcome: Progressing as expected Problem: Nutrition Deficit Goal: Adequate nutritional intake Outcome: Progressing as expected Problem: Skin integrity Impaired (Risk or Actual) Goal: Wound healing Outcome: Progressing as expected Goal: Prevention of new skin breakdown Outcome: Progressing as expected Problem: Respiratory Function - Impaired Goal: Adequate oxygenation Outcome: Progressing as expected Goal: Adequate work of breathing Outcome: Progressing as expected Problem: Discharge Planning Goal: Adequate for discharge Outcome: Not progressing as expected Goal: Effective communication Outcome: Not progressing as expected Problem: Mobility - Impaired Goal: Able to achieve maximum mobility level Outcome: Not progressing as expected Problem: Mental Status - Impaired Goal: Able to achieve maximum level of cognitive ability Outcome: Not progressing as expected are Plan - Kath Espinosa RN - 11/20/2020 7:17 AM SODA MAKER Problem: Falls, Risk of Goal: Absence of falls 11/20/2020 0717 by Kath Espinosa RN Outcome: Progressing as expected 11/20/2020716 by Kath Espinosa RN Outcome: Progressing as expected Problem: Pain Goal: Control of pain at or below patient's documented comfort goal 11/20/2020716 by Kath Espinosa RN Outcome: Progressing as expected 11/20/2020716 by Kath Espinosa RN Outcome: Progressing as expected Goal: Reduction in pain sensation 11/20/2020716 by Kath Espinosa RN Outcome: Progressing as expected 11/20/2020716 by Kath Espinosa RN Outcome: Progressing as expected Problem: Nausea/Vomiting Goal: Absence of nausea/vomiting 11/20/2020716 by Kath Espinosa RN Outcome: Progressing as expected 11/20/2020716 by Kath Espinosa RN Outcome: Progressing as expected Problem: Discharge Planning Goal: Absence of venous thromboembolism 11/20/2020716 by Kath Espinosa RN Outcome: Progressing as expected 11/20/2020716 by Kath Espinosa RN Outcome: Progressing as expected Goal: Adequate for discharge 11/20/2020716 by Kath Espinosa RN Outcome: Progressing as expected 11/20/2020716 by Kath Espinosa RN Outcome: Progressing as expected Goal: Effective communication 11/20/2020716 by Kath Espinosa RN Outcome: Progressing as expected 11/20/2020716 by Kath Espinosa RN Outcome: Progressing as expected Problem: Nutrition Deficit Goal: Adequate nutritional intake 11/20/2020716 by Kath Espinosa RN Outcome: Progressing as expected 11/20/2020716 by Kath Espinosa RN Outcome: Progressing as expected Problem: Skin integrity Impaired (Risk or Actual) Goal: Wound healing 11/20/2020716 by Kath Espinosa RN Outcome: Progressing as expected 11/20/2020716 by Kath Espinosa RN Outcome: Progressing as expected Goal: Prevention of new skin breakdown 11/20/2020716 by Kath Espinosa RN Outcome: Progressing as expected 11/20/2020 07 by Kath Espinosa RN Outcome: Progressing as expected Problem: Mobility - Impaired Goal: Able to achieve maximum mobility level 11/20/2020716 by Kath Espinosa RN Outcome: Progressing as expected 11/20/2020716 by Kath Espinosa RN Outcome: Progressing as expected Problem: Respiratory Function - Impaired Goal: Adequate oxygenation 11/20/2020716 by Kath Espinosa RN Outcome: Progressing as expected 11/20/2020716 by Kath Espinosa RN Outcome: Progressing as expected Goal: Adequate work of breathing 11/20/2020716 by Kath Espinosa RN Outcome: Progressing as expected 11/20/2020716 by Kath Espinosa RN Outcome: Progressing as expected Problem: Mental Status - Impaired Goal: Able to achieve maximum level of cognitive ability 11/20/2020716 by Kath Espinosa RN Outcome: Not progressing as expected 11/20/2020716 by Kath Espinosa RN Outcome: Progressing as expected MAKER Nursing Note - Vita Horne RN - 11/19/2020 7:33 PM CSTRN walked in to give patient medication, but patient was unresponsive. Patient's eyes were open, notblinking. RN waved hand in front of patient's face and he did not respond. RN tried talking louder to patient and sternal rub, but still no response from patient. Rapid called at 1843 and MDs notified.Patient more alert when MDs assessed. Patient answered questions appropriately; mildly delayed responses. Vitals, blood glucose, and labs were taken. Please see flowsheets, results, and MD's note for more information. are Plan - Vita Horne RN - 11/19/2020 12:50 PM SODA MAKER Problem: Falls, Risk of Goal: Absence of falls Outcome: Progressing as expected Problem: Pain Goal: Control of pain at or below patient's documented comfort goal Outcome: Progressing as expected Goal: Reduction in pain sensation Outcome: Progressing as expected Problem: Nausea/Vomiting Goal: Absence of nausea/vomiting Outcome: Progressing as expected Problem: Discharge Planning Goal: Absence of venous thromboembolism Outcome: Progressing as expected Goal: Effective communication Outcome: Progressing as expected Problem: Nutrition Deficit Goal: Adequate nutritional intake Outcome: Progressing as expected Problem: Skin integrity Impaired (Risk or Actual) Goal: Wound healing Outcome: Progressing as expected Goal: Prevention of new skin breakdown Outcome: Progressing as expected Problem: Respiratory Function - Impaired Goal: Adequate oxygenation Outcome: Progressing as expected Goal: Adequate work of breathing Outcome: Progressing as expected Problem: Discharge Planning Goal: Adequate for discharge Outcome: Not progressing as expected Problem: Mobility - Impaired Goal: Able to achieve maximum mobility level Outcome: Not progressing as expected Problem: Mental Status - Impaired Goal: Able to achieve maximum level of cognitive ability Outcome: Not progressing as expected are Plan - Amanuel Dewey RN - 11/19/2020 2:51 AM SODA MAKER Problem: Falls, Risk of Goal: Absence of falls Outcome: Progressing as expected Problem: Pain Goal: [...] Effective communication Outcome: Progressing as expected Problem: Nutrition Deficit Goal: Adequate nutritional intake Outcome: Progressing as expected Problem: Skin integrity Impaired (Risk or Actual) Goal: Wound healing Outcome: Progressing as expected Goal: Prevention of new skin breakdown Outcome: Progressing as expected Problem: Mobility - Impaired Goal: Able to achieve maximum mobility level Outcome: Progressing as expected Problem: Respiratory Function - Impaired Goal: Adequate oxygenation Outcome: Progressing as expected Goal: Adequate work of breathing Outcome: Progressing as expected Problem: Mental Status - Impaired Goal: Able to achieve maximum level of cognitive ability Outcome: Progressing as expected MAKER Nursing Note - Vita Horne RN - 11/18/2020 7:30 PM CSTBladder scan showed 0 mL in bladder. RN checked 3x. Patient states that he voided recently. Will continue to monitor. are Plan - Vita Honre RN - 11/18/2020 1:00 PM SODA MAKER Problem: Falls, Risk of Goal: Absence of falls Outcome: Progressing as expected Problem: Pain Goal: Control of pain at or below patient's documented comfort goal Outcome: Progressing as expected Goal: Reduction in pain sensation Outcome: Progressing as expected Problem: Discharge Planning Goal: Absence of venous thromboembolism Outcome: Progressing as expected Goal: Effective communication Outcome: Progressing as expected Problem: Nutrition Deficit Goal: Adequate nutritional intake Outcome: Progressing as expected Problem: Skin integrity Impaired (Risk or Actual) Goal: Wound healing Outcome: Progressing as expected Goal: Prevention of new skin breakdown Outcome: Progressing as expected Problem: Respiratory Function - Impaired Goal: Adequate oxygenation Outcome: Progressing as expected Goal: Adequate work of breathing Outcome: Progressing as expected Problem: Nausea/Vomiting Goal: Absence of nausea/vomiting Outcome: Not progressing as expected Problem: Discharge Planning Goal: Adequate for discharge Outcome: Not progressing as expected Problem: Mobility - Impaired Goal: Able to achieve maximum mobility level Outcome: Not progressing as expected Problem: Mental Status - Impaired Goal: Able to achieve maximum level of cognitive ability Outcome: Not progressing as expected are Plan - Amanuel Dewey RN - 11/18/2020 2:54 AM SODA MAKER Problem: Falls, Risk of Goal: Absence of falls Outcome: Progressing as expected Problem: Pain Goal: [...] Effective communication Outcome: Progressing as expected Problem: Nutrition Deficit Goal: Adequate nutritional intake Outcome: Progressing as expected Problem: Skin integrity Impaired (Risk or Actual) Goal: Wound healing Outcome: Progressing as expected Goal: Prevention of new skin breakdown Outcome: Progressing as expected Problem: Mobility - Impaired Goal: Able to achieve maximum mobility level Outcome: Progressing as expected Problem: Respiratory Function - Impaired Goal: Adequate oxygenation Outcome: Progressing as expected Goal: Adequate work of breathing Outcome: Progressing as expected Problem: Mental Status - Impaired Goal: Able to achieve maximum level of cognitive ability Outcome: Progressing as expected MAKER Care Plan - Luz Marina Fofana RN - 11/17/2020 10:05 AM SODA MAKER Problem: Falls, Risk of Goal: Absence of falls Outcome: Not progressing as expected Problem: Pain Goal: Control of pain at or below patient's documented comfort goal Outcome: Not progressing as expected Goal: Reduction in pain sensation Outcome: Not progressing as expected Problem: Nausea/Vomiting Goal: Absence of nausea/vomiting Outcome: Not progressing as expected Problem: Discharge Planning Goal: Absence of venous thromboembolism Outcome: Not progressing as expected Goal: Adequate for discharge Outcome: Not progressing as expected Goal: Effective communication Outcome: Not progressing as expected Problem: Skin integrity Impaired (Risk or Actual) Goal: Wound healing Outcome: Not progressing as expected Goal: Prevention of new skin breakdown Outcome: Not progressing as expected Problem: Mobility - Impaired Goal: Able to achieve maximum mobility level Outcome: Not progressing as expected Problem: Respiratory Function - Impaired Goal: Adequate oxygenation Outcome: Not progressing as expected Goal: Adequate work of breathing Outcome: Not progressing as expected Problem: Mental Status - Impaired Goal: Able to achieve maximum level of cognitive ability Outcome: Not progressing as expected are Plan - Josselyn Romero RN - 11/17/2020 7:25 AM SODA MAKER Problem: Falls, Risk of Goal: Absence of falls 11/17/2020 0725 by Josselyn Romero RN Outcome: Progressing as expected 11/17/2020 07 by Josselyn Romero RN Outcome: Progressing as expected Problem: Pain Goal: Control of pain at or below patient's documented comfort goal 11/17/2020724 by Josselyn Romero RN Outcome: Progressing as expected 11/17/2020722 by Josselyn Romero RN Outcome: Progressing as expected Goal: Reduction in pain sensation 11/17/2020 07 by Josselyn Romero RN Outcome: Progressing as expected 11/17/2020 07 by Josselyn Romero RN Outcome: Progressing as expected Problem: Nausea/Vomiting Goal: Absence of nausea/vomiting 11/17/2020724 by Josselyn Romero RN Outcome: Progressing as expected 11/17/2020722 by Josselyn Romero RN Outcome: Progressing as expected Problem: Discharge Planning Goal: Absence of venous thromboembolism 11/17/2020724 by Josselyn Romero RN Outcome: Progressing as expected 11/17/2020722 by Josselyn Romero RN Outcome: Progressing as expected Goal: Adequate for discharge 11/17/2020 07 by Josselyn Romero RN Outcome: Progressing as expected 11/17/2020722 by Josselyn Romero RN Outcome: Progressing as expected Goal: Effective communication 11/17/2020724 by Josselyn Romero RN Outcome: Progressing as expected 11/17/2020722 by Josselyn Romero RN Outcome: Progressing as expected Problem: Nutrition Deficit Goal: Adequate nutritional intake 11/17/2020724 by Josselyn Romero RN Outcome: Progressing as expected 11/17/2020722 by Josselyn Romero RN Outcome: Progressing as expected Problem: Skin integrity Impaired (Risk or Actual) Goal: Wound healing 11/17/2020724 by Josselyn Romero RN Outcome: Progressing as expected 11/17/2020722 by Josselyn Romero RN Outcome: Progressing as expected Goal: Prevention of new skin breakdown 11/17/2020724 by Josselyn Romero RN Outcome: Progressing as expected 11/17/2020722 by Josselyn Romero RN Outcome: Progressing as expected Problem: Mobility - Impaired Goal: Able to achieve maximum mobility level 11/17/2020724 by Josselyn Romero RN Outcome: Progressing as expected 11/17/2020722 by Josselyn Romero RN Outcome: Progressing as expected Problem: Respiratory Function - Impaired Goal: Adequate oxygenation 11/17/2020724 by Josselyn Romero RN Outcome: Progressing as expected 11/17/2020722 by Josselyn Romero RN Outcome: Progressing as expected Goal: Adequate work of breathing 11/17/2020724 by Josselyn Romero RN Outcome: Progressing as expected 11/17/2020722 by Josselyn Romero RN Outcome: Progressing as expected Problem: Mental Status - Impaired Goal: Able to achieve maximum level of cognitive ability Outcome: Not progressing as expected are Plan - Rosendo Gunn RN - 11/16/2020 5:03 PM SODA MAKER Problem: Falls, Risk of Goal: Absence of falls Outcome: Progressing as expected Problem: Pain Goal: [...] Effective communication Outcome: Progressing as expected Problem: Nutrition Deficit Goal: Adequate nutritional intake Outcome: Progressing as expected Problem: Skin integrity Impaired (Risk or Actual) Goal: Wound healing Outcome: Progressing as expected Goal: Prevention of new skin breakdown Outcome: Progressing as expected Problem: Respiratory Function - Impaired Goal: Adequate oxygenation Outcome: Progressing as expected Goal: Adequate work of breathing Outcome: Progressing as expected are Roxana - Josselyn Romero RN - 11/16/2020 2:45 AM SODA MAKER Problem: Falls, Risk of Goal: Absence of falls Outcome: Progressing as expected Problem: Pain Goal: [...] Effective communication Outcome: Progressing as expected Problem: Nutrition Deficit Goal: Adequate nutritional intake Outcome: Progressing as expected Problem: Skin integrity Impaired (Risk or Actual) Goal: Wound healing Outcome: Progressing as expected Goal: Prevention of new skin breakdown Outcome: Progressing as expected Problem: Mobility - Impaired Goal: Able to achieve maximum mobility level Outcome: Progressing as expected Problem: Respiratory Function - Impaired Goal: Adequate oxygenation Outcome: Progressing as expected Goal: Adequate work of breathing Outcome: Progressing as expected are Plan - Ned Clarke RN - 11/15/2020 7:28 PM SODA MAKER Problem: Falls, Risk of Goal: Absence of falls Outcome: Progressing as expected Problem: Pain Goal: [...] Effective communication Outcome: Progressing as expected Problem: Nutrition Deficit Goal: Adequate nutritional intake Outcome: Progressing as expected Problem: Skin integrity Impaired (Risk or Actual) Goal: Wound healing Outcome: Progressing as expected Goal: Prevention of new skin breakdown Outcome: Progressing as expected Problem: Mobility - Impaired Goal: Able to achieve maximum mobility level Outcome: Progressing as expected Problem: Respiratory Function - Impaired Goal: Adequate oxygenation Outcome: Progressing as expected Goal: Adequate work of breathing Outcome: Progressing as expected are Plan - Ned Clarke RN - 11/14/2020 12:46 PM SODA MAKER Problem: Falls, Risk of Goal: Absence of falls Outcome: Progressing as expected Problem: Pain Goal: [...] Effective communication Outcome: Progressing as expected Problem: Nutrition Deficit Goal: Adequate nutritional intake Outcome: Progressing as expected Problem: Skin integrity Impaired (Risk or Actual) Goal: Wound healing Outcome: Progressing as expected Goal: Prevention of new skin breakdown Outcome: Progressing as expected Problem: Mobility - Impaired Goal: Able to achieve maximum mobility level Outcome: Progressing as expected Problem: Respiratory Function - Impaired Goal: Adequate oxygenation Outcome: Progressing as expected Goal: Adequate work of breathing Outcome: Progressing as expected are Plan - Ana M Boyer RN - 11/14/2020 12:43 AM SODA MAKER Problem: Falls, Risk of Goal: Absence of falls Outcome: Progressing as expected Problem: Falls, Risk of Goal: Absence of falls Outcome: Progressing as expected Problem: Pain Goal: [...] Effective communication Outcome: Progressing as expected Problem: Nutrition Deficit Goal: Adequate nutritional intake Outcome: Progressing as expected Problem: Skin integrity Impaired (Risk or Actual) Goal: Wound healing Outcome: Progressing as expected Goal: Prevention of new skin breakdown Outcome: Progressing as expected Problem: Mobility - Impaired Goal: Able to achieve maximum mobility level Outcome: Progressing as expected Problem: Respiratory Function - Impaired Goal: Adequate oxygenation Outcome: Progressing as expected Goal: Adequate work of breathing Outcome: Progressing as expected MAKER Care Plan - Kaylee Klein RN - 11/13/2020 11:30 AM SODA MAKER Problem: Falls, Risk of Goal: Absence of falls Outcome: Progressing as expected Problem: Pain Goal: [...] Effective communication Outcome: Progressing as expected Problem: Nutrition Deficit Goal: Adequate nutritional intake Outcome: Progressing as expected Problem: Skin integrity Impaired (Risk or Actual) Goal: Wound healing Outcome: Progressing as expected Goal: Prevention of new skin breakdown Outcome: Progressing as expected Problem: Mobility - Impaired Goal: Able to achieve maximum mobility level Outcome: Progressing as expected Problem: Respiratory Function - Impaired Goal: Adequate oxygenation Outcome: Progressing as expected Goal: Adequate work of breathing Outcome: Progressing as expected are Plan - Sina Brandon RN - 11/12/2020 11:45 PM SODA MAKER Problem: Falls, Risk of Goal: Absence of falls Outcome: Progressing as expected Problem: Pain Goal: [...] Effective communication Outcome: Progressing as expected Problem: Nutrition Deficit Goal: Adequate nutritional intake Outcome: Progressing as expected Problem: Skin integrity Impaired (Risk or Actual) Goal: Wound healing Outcome: Progressing as expected Goal: Prevention of new skin breakdown Outcome: Progressing as expected Problem: Mobility - Impaired Goal: Able to achieve maximum mobility level Outcome: Progressing as expected Problem: Respiratory Function - Impaired Goal: Adequate oxygenation Outcome: Progressing as expected Goal: Adequate work of breathing Outcome: Progressing as expected MAKER Care Plan - Vita Horne RN - 11/12/2020 11:48 AM SODA MAKER Problem: Restraint Use Goal: Absence of restraint indications Outcome: Resolved Goal: Absence of restraint-related injury Outcome: Resolved Problem: Discharge Planning Goal: Adequate for discharge Outcome: Not progressing as expected Goal: Effective communication Outcome: Not progressing as expected Problem: Nutrition Deficit Goal: Adequate nutritional intake Outcome: Not progressing as expected Problem: Skin integrity Impaired (Risk or Actual) Goal: Wound healing Outcome: Not progressing as expected Problem: Mobility - Impaired Goal: Able to achieve maximum mobility level Outcome: Not progressing as expected Problem: Falls, Risk of Goal: Absence of falls Outcome: Progressing as expected Problem: Pain Goal: Control of pain at or below patient's documented comfort goal Outcome: Progressing as expected Goal: Reduction in pain sensation Outcome: Progressing as expected Problem: Nausea/Vomiting Goal: Absence of nausea/vomiting Outcome: Progressing as expected Problem: Discharge Planning Goal: Absence of venous thromboembolism Outcome: Progressing as expected Problem: Skin integrity Impaired (Risk or Actual) Goal: Prevention of new skin breakdown Outcome: Progressing as expected Problem: Respiratory Function - Impaired Goal: Adequate oxygenation Outcome: Progressing as expected Goal: Adequate work of breathing Outcome: Progressing as expected ursing Note - Wei Ely RN - 11/10/2020 7:41 PM CSTCalled 8A to take Report , Hold for 5 mts then hang up are Plan - José Luis Bañuelos RN - 11/10/2020 6:54 PM SODA MAKER Problem: Falls, Risk of Goal: Absence of falls Outcome: Progressing as expected Problem: Pain Goal: Control of pain at or below patient's documented comfort goal Outcome: Progressing as expected Goal: Reduction in pain sensation Outcome: Progressing as expected Problem: Discharge Planning Goal: Absence of venous thromboembolism Outcome: Progressing as expected Goal: Adequate for discharge Outcome: Progressing as expected Goal: Effective communication Outcome: Progressing as expected Problem: Nutrition Deficit Goal: Adequate nutritional intake Outcome: Progressing as expected Problem: Skin integrity Impaired (Risk or Actual) Goal: Wound healing Outcome: Progressing as expected Goal: Prevention of new skin breakdown Outcome: Progressing as expected Problem: Mobility - Impaired Goal: Able to achieve maximum mobility level Outcome: Progressing as expected Problem: Respiratory Function - Impaired Goal: Adequate oxygenation Outcome: Progressing as expected Goal: Adequate work of breathing Outcome: Progressing as expected are Plan - Francie Hennessy RN - 11/10/2020 6:09 AM SODA MAKER Problem: Falls, Risk of Goal: Absence of falls Outcome: Progressing as expected Problem: Pain Goal: [...] Effective communication Outcome: Progressing as expected Problem: Nutrition Deficit Goal: Adequate nutritional intake Outcome: Progressing as expected Problem: Skin integrity Impaired (Risk or Actual) Goal: Wound healing Outcome: Progressing as expected Goal: Prevention of new skin breakdown Outcome: Progressing as expected Problem: Mobility - Impaired Goal: Able to achieve maximum mobility level Outcome: Progressing as expected Problem: Restraint Use Goal: Absence of restraint indications Outcome: Progressing as expected Goal: Absence of restraint-related injury Outcome: Progressing as expected Problem: Respiratory Function - Impaired Goal: Adequate oxygenation Outcome: Progressing as expected Goal: Adequate work of breathing Outcome: Progressing as expected are Plan - José Luis Bañuelos RN - 11/09/2020 4:40 PM SODA MAKER Problem: Falls, Risk of Goal: Absence of falls Outcome: Progressing as expected Problem: Pain Goal: [...] Effective communication Outcome: Progressing as expected Problem: Nutrition Deficit Goal: Adequate nutritional intake Outcome: Progressing as expected Problem: Skin integrity Impaired (Risk or Actual) Goal: Wound healing Outcome: Progressing as expected Goal: Prevention of new skin breakdown Outcome: Progressing as expected Problem: Mobility - Impaired Goal: Able to achieve maximum mobility level Outcome: Progressing as expected are José Luis Allred RN - 11/07/2020 6:13 PM SODA MAKER Problem: Falls, Risk of Goal: Absence of falls Outcome: Progressing as expected Problem: Pain Goal: [...] Effective communication Outcome: Progressing as expected Problem: Mobility - Impaired Goal: Able to achieve maximum mobility level Outcome: Progressing as expected Problem: Restraint Use Goal: Absence of restraint indications Outcome: Progressing as expected Goal: Absence of restraint-related injury Outcome: Progressing as expected are José Luis Allred RN - 11/06/2020 6:30 PM CSTPatient sedated and mechanically vented. Problem: Falls, Risk of Goal: Absence of falls Outcome: Progressing as expected Problem: Pain Goal: Control of pain at or below patient's documented comfort goal Outcome: Progressing as expected Goal: Reduction in pain sensation Outcome: Progressing as expected Problem: Discharge Planning Goal: Absence of venous thromboembolism Outcome: Progressing as expected Goal: Adequate for discharge Outcome: Progressing as expected Goal: Effective communication Outcome: Progressing as expected Problem: Nutrition Deficit Goal: Adequate nutritional intake Outcome: Progressing as expected Problem: Skin integrity Impaired (Risk or Actual) Goal: Wound healing Outcome: Progressing as expected Goal: Prevention of new skin breakdown Outcome: Progressing as expected Problem: Mobility - Impaired Goal: Able to achieve maximum mobility level Outcome: Progressing as expected Problem: Respiratory Function - Impaired Goal: Adequate oxygenation Outcome: Progressing as expected Goal: Adequate work of breathing Outcome: Progressing as expected Problem: Restraint Use Goal: Absence of restraint indications Outcome: Progressing as expected Goal: Absence of restraint-related injury Outcome: Progressing as expected are José Luis lAlred RN - 11/05/2020 6:42 PM CSTPatient is sedated and mechanically vented. Patient's pupils were unequal in size. Primary team notified. Patient failed spontaneous breathing trial. Lines, drains, and airways will not removed today. Primary team will need to reassess. Problem: Falls, Risk of Goal: Absence of falls Outcome: Progressing as expected are Roxana - Carmella Rodriguez RN - 11/02/2020 5:53 PM SODA MAKER Problem: Falls, Risk of Goal: Absence of falls Outcome: Progressing as expected Problem: Nausea/Vomiting Goal: Absence of nausea/vomiting Outcome: Progressing as expected Problem: Discharge Planning Goal: Absence of venous thromboembolism Outcome: Progressing as expected Goal: Adequate for discharge Outcome: Progressing as expected Goal: Effective communication Outcome: Progressing as expected Problem: Nutrition Deficit Goal: Adequate nutritional intake Outcome: Progressing as expected Problem: Skin integrity Impaired (Risk or Actual) Goal: Wound healing Outcome: Progressing as expected Goal: Prevention of new skin breakdown Outcome: Progressing as expected Problem: Mobility - Impaired Goal: Able to achieve maximum mobility level Outcome: Progressing as expected Problem: Pain Goal: Control of pain at or below patient's documented comfort goal Outcome: Not progressing as expected Goal: Reduction in pain sensation Outcome: Not progressing as expected Problem: Restraint Use Goal: Absence of restraint indications Outcome: Not progressing as expected Goal: Absence of restraint-related injury Outcome: Not progressing as expected ursing Note - Christy Benson RN - 11/02/2020 7:11 AM CSTARTERIAL LINE PLACEMENT NOTE Tax Auditor(s): Madeline Dewey RN ICU Attending: Dr Koby Morse Indication: Continuous hemodynamic monitoring: shock Consent: emergency PreProcedure Verification Completed yes, Site Marking Completed yes, Time Out Completed yes. Risk Factors: platelet dysfunction Gauge: 20 Location: Radial: Right Dominant Hand: Unknown Michael's Test: Normal Procedure Aseptic Technique: Local Anesthesia: None Access: ultrasound guided insertion Attempts: 1 Complications: none Comments: none are Roxana - Amadou Esparza RN - 10/31/2020 1:45 AM SODA MAKER Problem: Falls, Risk of Goal: Absence of falls Outcome: Progressing as expected Problem: Pain Goal: [...] Effective communication Outcome: Progressing as expected Problem: Nutrition Deficit Goal: Adequate nutritional intake Outcome: Progressing as expected Problem: Skin integrity Impaired (Risk or Actual) Goal: Wound healing Outcome: Progressing as expected Goal: Prevention of new skin breakdown Outcome: Progressing as expected Problem: Mobility - Impaired Goal: Able to achieve maximum mobility level Outcome: Progressing as expected are Plan - Trista Lacy RN - 10/30/2020 7:05 PM SODA MAKER Problem: Falls, Risk of Goal: Absence of falls Outcome: Progressing as expected Problem: Pain Goal: [...] Effective communication Outcome: Progressing as expected Problem: Nutrition Deficit Goal: Adequate nutritional intake Outcome: Progressing as expected Problem: Skin integrity Impaired (Risk or Actual) Goal: Wound healing Outcome: Progressing as expected Goal: Prevention of new skin breakdown Outcome: Progressing as expected Problem: Mobility - Impaired Goal: Able to achieve maximum mobility level Outcome: Progressing as expected are Plan - Yolis Guy RN - 10/30/2020 2:18 AM SODA MAKER Problem: Falls, Risk of Goal: Absence of falls Outcome: Progressing as expected Problem: Pain Goal: [...] Effective communication Outcome: Progressing as expected Problem: Nutrition Deficit Goal: Adequate nutritional intake Outcome: Progressing as expected Problem: Skin integrity Impaired (Risk or Actual) Goal: Wound healing Outcome: Progressing as expected Goal: Prevention of new skin breakdown Outcome: Progressing as expected Problem: Mobility - Impaired Goal: Able to achieve maximum mobility level Outcome: Progressing as expected are Plan - Trista Lacy RN - 10/29/2020 7:20 PM SODA MAKER Problem: Falls, Risk of Goal: Absence of falls Outcome: Progressing as expected Problem: Pain Goal: [...] Effective communication Outcome: Progressing as expected Problem: Nutrition Deficit Goal: Adequate nutritional intake Outcome: Progressing as expected Problem: Skin integrity Impaired (Risk or Actual) Goal: Wound healing Outcome: Progressing as expected Goal: Prevention of new skin breakdown Outcome: Progressing as expected Problem: Mobility - Impaired Goal: Able to achieve maximum mobility level Outcome: Progressing as expected are Plan - Yolis Guy RN - 10/29/2020 1:59 AM SODA MAKER Problem: Falls, Risk of Goal: Absence of falls Outcome: Progressing as expected Problem: Pain Goal: [...] Effective communication Outcome: Progressing as expected Problem: Nutrition Deficit Goal: Adequate nutritional intake Outcome: Progressing as expected Problem: Skin integrity Impaired (Risk or Actual) Goal: Wound healing Outcome: Progressing as expected Goal: Prevention of new skin breakdown Outcome: Progressing as expected Problem: Mobility - Impaired Goal: Able to achieve maximum mobility level Outcome: Progressing as expected are Plan - Jackeline Simeon RN - 10/28/2020 3:39 PM SODA MAKER Problem: Falls, Risk of Goal: Absence of falls Outcome: Progressing as expected Problem: Pain Goal: [...] Effective communication Outcome: Progressing as expected Problem: Nutrition Deficit Goal: Adequate nutritional intake Outcome: Progressing as expected Problem: Skin integrity Impaired (Risk or Actual) Goal: Wound healing Outcome: Progressing as expected Goal: Prevention of new skin breakdown Outcome: Progressing as expected Problem: Mobility - Impaired Goal: Able to achieve maximum mobility level Outcome: Progressing as expected D Nurse Note - Dawn Ryan PCT - 10/28/2020 8:40 AM CSTPatient calling about is diet order. Patient is upset wanting to see doctors about his diet order are Plan - Solis Oliver RN - 10/28/2020 5:49 AM SODA MAKER Problem: Falls, Risk of Goal: Absence of falls Outcome: Progressing as expected Problem: Pain Goal: [...] Effective communication Outcome: Progressing as expected Problem: Nutrition Deficit Goal: Adequate nutritional intake Outcome: Progressing as expected Problem: Skin integrity Impaired (Risk or Actual) Goal: Wound healing Outcome: Progressing as expected Goal: Prevention of new skin breakdown Outcome: Progressing as expected Problem: Mobility - Impaired Goal: Able to achieve maximum mobility level Outcome: Progressing as expected are Plan - Octavia Hurt RN - 10/27/2020 10:29 PM SODA MAKER Problem: Falls, Risk of Goal: Absence of falls Outcome: Progressing as expected Problem: Pain Goal: [...] Effective communication Outcome: Progressing as expected Problem: Nutrition Deficit Goal: Adequate nutritional intake Outcome: Progressing as expected Problem: Skin integrity Impaired (Risk or Actual) Goal: Wound healing Outcome: Progressing as expected Goal: Prevention of new skin breakdown Outcome: Progressing as expected Problem: Mobility - Impaired Goal: Able to achieve maximum mobility level Outcome: Progressing as expected ursing Note - Edith Castro RN - 10/27/2020 2:20 PM CSTPatient returns for EGD, this time The plan is to use BOTOX in [place]unction and place PEG tube. EG Junction was injected in 4 quad rents in the EG junction 1cc each. Scope used to jacky abd. The out side was injected with lidocaine, and cut and wire threaded. Tube was placed and pulled through Abd. And then secured ursing Note - Hema Ford RN - 10/27/2020 12:30 PM CSTReport received from MARTINA Kam. Pt NPO and ready for procedure. Pt placed in teletrack to come to[facility] for procedure via stretcher at 1230. are Plan - Negin Acosta RN - 10/27/2020 11:03 AM SODA MAKER Problem: Falls, Risk of Goal: Absence of falls Outcome: Progressing as expected Problem: Pain Goal: [...] Effective communication Outcome: Progressing as expected Problem: Skin integrity Impaired (Risk or Actual) Goal: Wound healing Outcome: Progressing as expected Goal: Prevention of new skin breakdown Outcome: Progressing as expected Problem: Nutrition Deficit Goal: Adequate nutritional intake Outcome: Progressing as expected Problem: Mobility - Impaired Goal: Able to achieve maximum mobility level Outcome: Progressing as expected are Plan - Octavia Hurt RN - 10/26/2020 11:08 PM SODA MAKER Problem: Falls, Risk of Goal: Absence of falls Outcome: Progressing as expected Problem: Pain Goal: [...] Effective communication Outcome: Progressing as expected Problem: Nutrition Deficit Goal: Adequate nutritional intake Outcome: Progressing as expected Problem: Skin integrity Impaired (Risk or Actual) Goal: Wound healing Outcome: Progressing as expected Goal: Prevention of new skin breakdown Outcome: Progressing as expected Problem: Mobility - Impaired Goal: Able to achieve maximum mobility level Outcome: Progressing as expected are Roxana - Elodia Ward RN - 10/26/2020 10:04 AM SODA MAKER Problem: Falls, Risk of Goal: Absence of falls Outcome: Progressing as expected Problem: Pain Goal: [...] Effective communication Outcome: Progressing as expected Problem: Nutrition Deficit Goal: Adequate nutritional intake Outcome: Progressing as expected Problem: Skin integrity Impaired (Risk or Actual) Goal: Wound healing Outcome: Progressing as expected Goal: Prevention of new skin breakdown Outcome: Progressing as expected Problem: Mobility - Impaired Goal: Able to achieve maximum mobility level Outcome: Progressing as expected are Plan - Octavia Hurt RN - 10/25/2020 9:53 PM SODA MAKER Problem: Falls, Risk of Goal: Absence of falls Outcome: Progressing as expected Problem: Pain Goal: [...] Effective communication Outcome: Progressing as expected Problem: Nutrition Deficit Goal: Adequate nutritional intake Outcome: Progressing as expected Problem: Skin integrity Impaired (Risk or Actual) Goal: Wound healing Outcome: Progressing as expected Goal: Prevention of new skin breakdown Outcome: Progressing as expected Problem: Mobility - Impaired Goal: Able to achieve maximum mobility level Outcome: Progressing as expected are Trista Murphy RN - 10/25/2020 1:43 PM SODA MAKER Problem: Falls, Risk of Goal: Absence of falls Outcome: Progressing as expected Problem: Pain Goal: [...] Effective communication Outcome: Progressing as expected Problem: Nutrition Deficit Goal: Adequate nutritional intake Outcome: Progressing as expected Problem: Skin integrity Impaired (Risk or Actual) Goal: Wound healing Outcome: Progressing as expected Goal: Prevention of new skin breakdown Outcome: Progressing as expected Problem: Mobility - Impaired Goal: Able to achieve maximum mobility level Outcome: Progressing as expected are Plan - Octavia Hurt RN - 10/24/2020 11:29 PM SODA MAKER Problem: Falls, Risk of Goal: Absence of falls Outcome: Progressing as expected Problem: Pain Goal: [...] Effective communication Outcome: Progressing as expected Problem: Nutrition Deficit Goal: Adequate nutritional intake Outcome: Progressing as expected Problem: Skin integrity Impaired (Risk or Actual) Goal: Wound healing Outcome: Progressing as expected Goal: Prevention of new skin breakdown Outcome: Progressing as expected Problem: Mobility - Impaired Goal: Able to achieve maximum mobility level Outcome: Progressing as expected are Plan - Randi Quintanilla RN - 10/23/2020 10:44 PM SODA MAKER Problem: Falls, Risk of Goal: Absence of falls Outcome: Progressing as expected Problem: Pain Goal: [...] Effective communication Outcome: Progressing as expected Problem: Nutrition Deficit Goal: Adequate nutritional intake Outcome: Progressing as expected Problem: Skin integrity Impaired (Risk or Actual) Goal: Wound healing Outcome: Progressing as expected Goal: Prevention of new skin breakdown Outcome: Progressing as expected Problem: Mobility - Impaired Goal: Able to achieve maximum mobility level Outcome: Progressing as expected are Plan - Randi Quintanilla RN - 10/23/2020 12:11 AM SODA MAKER Problem: Falls, Risk of Goal: Absence of falls Outcome: Progressing as expected Problem: Pain Goal: [...] Effective communication Outcome: Progressing as expected Problem: Nutrition Deficit Goal: Adequate nutritional intake Outcome: Progressing as expected Problem: Skin integrity Impaired (Risk or Actual) Goal: Wound healing Outcome: Progressing as expected Goal: Prevention of new skin breakdown Outcome: Progressing as expected Problem: Mobility - Impaired Goal: Able to achieve maximum mobility level Outcome: Progressing as expected are Plan - Holly Alfredo RN - 10/22/2020 4:00 PM SODA MAKER Problem: Falls, Risk of Goal: Absence of falls Outcome: Progressing as expected Problem: Pain Goal: [...] Effective communication Outcome: Progressing as expected Problem: Nutrition Deficit Goal: Adequate nutritional intake Outcome: Progressing as expected Problem: Skin integrity Impaired (Risk or Actual) Goal: Wound healing Outcome: Progressing as expected Goal: Prevention of new skin breakdown Outcome: Progressing as expected Problem: Mobility - Impaired Goal: Able to achieve maximum mobility level Outcome: Progressing as expected are Plan - Yolis Guy RN - 10/22/2020 12:30 AM SODA MAKER Problem: Falls, Risk of Goal: Absence of falls Outcome: Progressing as expected Problem: Pain Goal: [...] Effective communication Outcome: Progressing as expected Problem: Nutrition Deficit Goal: Adequate nutritional intake Outcome: Progressing as expected Problem: Skin integrity Impaired (Risk or Actual) Goal: Wound healing Outcome: Progressing as expected Goal: Prevention of new skin breakdown Outcome: Progressing as expected Problem: Mobility - Impaired Goal: Able to achieve maximum mobility level Outcome: Progressing as expected ursing Note - Edith Castro RN - 10/21/2020 4:02 PM CSTPatient came NPO and with consent. Patient verbalized understanding of the procedure. Patient to have EGD and if the esophagus isnt full of food we will place Manometry Catheter under EGD guidance and will preform when patient wakes up. catheter was introduced into the Right Nostriland secured at _55 cm, Patient sleeping, catheter secured and patient will be monitored until awake enough to do, manometry. Patient awake and able to do manometry, he did swallows with little trouble, when completed the swallows,The catheter was then removed intact and without any blood. Report called to the floor are Plan - Efrem Cárdenas RN - 10/21/2020 6:37 AM SODA MAKER Problem: Falls, Risk of Goal: Absence of falls Outcome: Progressing as expected Problem: Pain Goal: [...] Effective communication Outcome: Progressing as expected Problem: Nutrition Deficit Goal: Adequate nutritional intake Outcome: Progressing as expected Problem: Skin integrity Impaired (Risk or Actual) Goal: Wound healing Outcome: Progressing as expected Goal: Prevention of new skin breakdown Outcome: Progressing as expected are Plan - Deana Petty RN - 10/20/2020 11:01 AM SODA MAKER Problem: Falls, Risk of Goal: Absence of falls Outcome: Progressing as expected Problem: Pain Goal: [...] Effective communication Outcome: Progressing as expected Problem: Nutrition Deficit Goal: Adequate nutritional intake Outcome: Progressing as expected Problem: Skin integrity Impaired (Risk or Actual) Goal: Wound healing Outcome: Progressing as expected Goal: Prevention of new skin breakdown Outcome: Progressing as expected are Plan - Macie Muro RN - 10/20/2020 12:37 AM SODA MAKER Problem: Falls, Risk of Goal: Absence of falls Outcome: Progressing as expected Problem: Pain Goal: [...] Effective communication Outcome: Progressing as expected Problem: Nutrition Deficit Goal: Adequate nutritional intake Outcome: Progressing as expected Problem: Skin integrity Impaired (Risk or Actual) Goal: Wound healing Outcome: Progressing as expected Goal: Prevention of new skin breakdown Outcome: Progressing as expected D Nurse Note - Rossy Bruner RN - 10/19/2020 3:11 PM CSTReport to Eunice HAHN. Pt updated on POC and PIV patent. Pt transferred via ER PCT. D Nurse Note - Rossy Bruner RN - 10/19/2020 12:16 PM CSTSpoke bela [facility] resident reports they will come to ER to speak w patient. general scrap worker at bedside. Patient remains agitated and insistent. Pt non receptive to update on POC. D Nurse Note - Rossy Bruner RN - 10/19/2020 12:06 PM CSTPt requesting pain medications and solid food "or else I am leaving again". Patient agitated and upset. general scrap worker requested to bedside upon request to help patient contact his family. Eben team paged. D Nurse Note - Cj Clarke RN - 10/19/2020 7:09 AM CSTReport given to Rossy Hahn. AMBROCIO, primary/secondary survey, identified injuries, orders, treatments reviewed. Cj Clarke, MARTINA D Nurse Note - Rossy Bruner RN - 10/19/2020 7:05 AM SODA MAKER Received report from Harris HAHN. Pt reports severe pain and wants apple juice. Informed of NPO at thistime. Pt upset and requesting to speak w MD. Pt placed on surveillance system monitor. D Nurse Note - Cj Clarke RN - 10/19/2020 6:52 AM CSTPt given pericare re postioned. PIV was established and labs sent. Pt with cloudy urine with white sediment. UA/UC sent. Pt c/o pain generalyzed and on buttocks requesting pain medication and. wanting to speak with MD YATES Paged. Pt D Nurse Note - Louise Gar RN - 10/19/2020 5:20 AM CSTAdmitting MD at bedside. D Nurse Note - Louise Gar RN - 10/19/2020 5:15 AM CSTPatient repositioned in bed. Patient tolerated well. D Nurse Note - Louise Gar RN - 10/19/2020 5:13 AM CSTPatient asked this RN when he will be transferred to a room and states "I wet myself and my parents are supposed to visit me this morning so I want to be comfortable." Patient offered paper scrub pantsand wipes to clean himself off. Patient declined, states "No, I want to shower." Patient offered a hospital gown and patient declined. Will continue to monitor. D Nurse Note - Louise Gar, RN - 10/19/2020 4:41 AM CSTMD at bedside. D Nurse Note - Louise Gar, RN - 10/19/2020 4:30 AM CSTPatient requesting potato chips, a popsicle, or M&M's. Patient informed he is NPO currently. Patient became upset and asked to speak with the MD. D Nurse Note - Chika Kiser RN - 10/19/2020 3:48 AM CSTPt in triage asking to have candy from the bowl. Pt informed that is not candy but a bowl of paperclips. Pt asking for a popsicle. Pt informed he cannot have anything till the ER MD sees him and orders a diet. Pt asks how long that will be and informed I have no time frame for when the ER MD will see him but will have him back to a room shortly. documented in this encounter Plan of Treatment Name Type Priority Associated Date/Time Diagnoses Transfuse Packed Transfusion Routine 10/31/2020 11:40 RBC (in units): 1 Administration PM SODA MAKER Units~As soon as possible; Infuse Each Unit Over: 2 Hours Transfuse Packed Transfusion Routine 10/31/2020 11:40 RBC (in units)~As Administration PM SODA MAKER soon as possible; Infuse Each Unit Over: 2 Hours FUNGUS (BLOOD) LAB [facility] 11/05/2020 5 :23 CULTURE AM SODA MAKER Name Type Priority Associated Diagnoses Order S chedule POCT URINALYSIS W SPECIFIC LAB Routine Pain O rdered: 10/19/2020 GRAVITY MRSA / MSSA Screen by PCR, [facility] O NCE for 1 Occurrences Nares starting 2020 until 1 CBC with Differential LAB STAT STAT f or 1 Occurrences starting 2020 until 1 Lactic Acid Whole Blood LAB STAT STAT for 1 Occurrences starting 2020 until 1 COMP. METABOLIC PANEL [facility] EVERY 12 HOURS (START (35701) TIME ADJUSTABLE ) for 3 Days starting 0 11/04/2020 until 1, 5 completed BLOOD CULTURE SCREEN [facility] EVERY 2 4 HOURS (START TIME ADJUSTABLE ) for 4 Days starting 0 11/04/2020 until 1, 3 completed Misc. 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 11/04/2020 PCR - [id number] until 11/04/19 21 PROTEIN QUANT U/24H [facility] ONCE for 1 Occurrences starting 2020 until 1 SPUTUM CULTURE LAB Routine ONCE for 1 Oc currences starting 2020 until 1 HAPTOGLOBIN, SERUM LAB Routine ONCE for 1 Occurrences starting 2020 until 1 CMV BY PCR LAB Routine EVERY 24 HOURS (START TIME ADJUSTABLE ) for 1 Days starting 0 11/17/2020 until 1 Lactic Acid Whole Blood LAB Routine STAT for 1 Occurrences starting 2020 Health Maintenance Due Date Last Done Comments VARICELLA VACCINES (1 of 2 - 2-dose childhood series) 1985 SARS-CoV-2 (COVID-19) Vaccine (1 of 2) 2000 DTaP,Tdap,and Td Vaccines (1 - Tdap) 2003 PNEUMOCOCCAL 0-64 YEARS COMBINED SERIES (2 of 3 - 08/30/2021 08/30/2020 PCV13) Depression Screening 10/27/2021 10/27/2020 INFLUENZA VACCINE Completed 08/30/2020 documented as of this encounter Procedures Procedure Name Priority Date/Time Associated Comments Diagnosis CBC WITH DIFF Routine 11/22/2020 Results for 4:35 AM SODA MAKER this procedure are in the results section. BASIC METABOLIC PANEL (NA, K, Routine 11/22/2020 Results for CL, CO2, GLUCOSE, BUN, 4:35 AM SODA MAKER this CREATININE, CA) procedure are in the results section. CBC WITH DIFF Routine 11/21/2020 Results for 6:01 AM SODA MAKER this procedure are in the results section. BASIC METABOLIC PANEL (NA, K, Routine 11/21/2020 Results for CL, CO2, GLUCOSE, BUN, 5:43 AM SODA MAKER this CREATININE, CA) procedure are in the results section. MAGNESIUM Routine 11/21/2020 Results for 5:43 AM SODA MAKER this procedure are in the results section. CBC WITH DIFF Routine 11/20/2020 Results for 3:36 AM SODA MAKER this procedure are in the results section. BASIC METABOLIC PANEL (NA, K, Routine 11/20/2020 Results for CL, CO2, GLUCOSE, BUN, 3:36 AM SODA MAKER this CREATININE, CA) procedure are in the results section. MAGNESIUM Routine 11/20/2020 Results for 3:36 AM SODA MAKER this procedure are in the results section. PHOSPHORUS Routine 11/20/2020 Results for 3:36 AM SODA MAKER this procedure are in the results section. ELECTROENCEPHALOGRAM Routine 11/20/2020 Confusion and Result s for disorientation this procedure are in the results section. CBC WITH DIFF STAT 11/19/2020 Results for 7:00 PM SODA MAKER this procedure are in the results section. BASIC METABOLIC PANEL (NA, K, STAT 11/19/2020 Results for CL, CO2, GLUCOSE, BUN, 7:00 PM SODA MAKER this CREATININE, CA) procedure are in the results section. MAGNESIUM STAT 11/19/2020 Results for 7:00 PM SODA MAKER this procedure are in the results section. LACTIC ACID WHOLE BLOOD STAT 11/19/2020 Resu lts for 6:59 PM SODA MAKER this procedure are in the results section. POCT GLUCOSE (AUTOMATED) Routine 11/19/2020 Res ults for 6:46 PM SODA MAKER this procedure are in the results section. CBC WITH DIFF Routine 11/19/2020 Results for 3:54 AM SODA MAKER this procedure are in the results section. BASIC METABOLIC PANEL (NA, K, Routine 11/19/2020 Results for CL, CO2, GLUCOSE, BUN, 3:54 AM SODA MAKER this CREATININE, CA) procedure are in the results section. MAGNESIUM Routine 11/19/2020 Results for 3:54 AM SODA MAKER this procedure are in the results section. EXTERNAL PROVIDER RECORDS Routine 11/19/2020 12:01 AM SODA MAKER CBC WITH DIFF Routine 11/18/2020 Results for 5:41 AM SODA MAKER this procedure are in the results section. BASIC METABOLIC PANEL (NA, K, Routine 11/18/2020 Results for CL, CO2, GLUCOSE, BUN, 5:41 AM SODA MAKER this CREATININE, CA) procedure are in the results section. HEPATIC FUNCTION PANEL (93773) Add-on 11/18/2020 Results for (ALB,T.PRO,BILI 5:41 AM SODA MAKER this T,BU/BC,ALT,AST,ALK PHOS) pr ocedure are in the results section. THYROID STIMULATING HORMONE Add-on 11/18/2020 Results for 5:41 AM SODA MAKER this procedure are in the results section. MAGNESIUM Routine 11/18/2020 Results for 5:41 AM SODA MAKER this procedure are in the results section. PHOSPHORUS Add-on 11/18/2020 Results for 5:41 AM SODA MAKER this procedure are in the results section. CT HEAD W CONTRAST Routine 11/17/2020 Confusion Results f or 9:44 PM SODA MAKER this procedure are in the results section. CBC WITH DIFF Routine 11/17/2020 Results for 12:01 PM SODA MAKER this procedure are in the results section. BASIC METABOLIC PANEL (NA, K, Routine 11/17/2020 Results for CL, CO2, GLUCOSE, BUN, 12:01 PM SODA MAKER this CREATININE, CA) procedure are in the results section. CMV BY PCR Routine 11/17/2020 Results for 11:50 AM SODA MAKER this procedure are in the results section. TRANSFUSE PACKED RBC Routine 11/16/2020 7:02 PM SODA MAKER PREPARE PACKED RBC Routine 11/16/2020 Results f or 4:40 PM SODA MAKER this procedure are in the results section. HB ABO GROUPING [facility] 11/16/2020 Results for 2:55 PM SODA MAKER this procedure are in the results section. HB ECG ROUTINE & RHYTHM STRIP [facility] 11/16/2020 Tachycardia 2:26 PM SODA MAKER CBC WITH DIFF Routine 11/16/2020 Results for 7:03 AM SODA MAKER this procedure are in the results section. BASIC METABOLIC PANEL (NA, K, Routine 11/16/2020 Results for CL, CO2, GLUCOSE, BUN, 7:03 AM SODA MAKER this CREATININE, CA) procedure are in the results section. MAGNESIUM Routine 11/16/2020 Results for 7:03 AM SODA MAKER this procedure are in the results section. PHOSPHORUS Add-on 11/16/2020 Results for 7:03 AM SODA MAKER this procedure are in the results section. POCT GLUCOSE (AUTOMATED) Routine 11/16/2020 Res ults for 4:56 AM SODA MAKER this procedure are in the results section. POCT GLUCOSE (AUTOMATED) Routine 11/15/2020 Res ults for 8:24 AM SODA MAKER this procedure are in the results section. CBC WITH DIFF Routine 11/15/2020 Results for 4:25 AM SODA MAKER this procedure are in the results section. BASIC METABOLIC PANEL (NA, K, Routine 11/15/2020 Results for CL, CO2, GLUCOSE, BUN, 4:25 AM SODA MAKER this CREATININE, CA) procedure are in the results section. HEPATIC FUNCTION PANEL (09547) Routine 11/15/2020 Results for (ALB,T.PRO,BILI 4:25 AM SODA MAKER this T,BU/BC,ALT,AST,ALK PHOS) pr ocedure are in the results section. MAGNESIUM Routine 11/15/2020 Results for 4:25 AM SODA MAKER this procedure are in the results section. PHOSPHORUS Routine 11/15/2020 Results for 4:25 AM SODA MAKER this procedure are in the results section. POCT GLUCOSE (AUTOMATED) Routine 11/15/2020 Res ults for 4:00 AM SODA MAKER this procedure are in the results section. POCT GLUCOSE (AUTOMATED) Routine 11/15/2020 Res ults for 12:20 AM SODA MAKER this procedure are in the results section. POCT GLUCOSE (AUTOMATED) Routine 11/14/2020 Res ults for 9:01 PM SODA MAKER this procedure are in the results section. POCT GLUCOSE (AUTOMATED) Routine 11/14/2020 Res ults for 4:30 PM SODA MAKER this procedure are in the results section. POCT GLUCOSE (AUTOMATED) Routine 11/14/2020 Res ults for 12:36 PM SODA MAKER this procedure are in the results section. BLOOD CULTURE SCREEN Routine 11/14/2020 Results for 12:31 PM SODA MAKER this procedure are in the results section. BLOOD CULTURE SCREEN Routine 11/14/2020 Results for 11:50 AM SODA MAKER this procedure are in the results section. POCT GLUCOSE (AUTOMATED) Routine 11/14/2020 Res ults for 8:35 AM SODA MAKER this procedure are in the results section. POCT GLUCOSE (AUTOMATED) Routine 11/14/2020 Res ults for 3:49 AM SODA MAKER this procedure are in the results section. CBC WITH DIFF Routine 11/14/2020 Results for 3:33 AM SODA MAKER this procedure are in the results section. BASIC METABOLIC PANEL (NA, K, Routine 11/14/2020 Results for CL, CO2, GLUCOSE, BUN, 3:33 AM SODA MAKER this CREATININE, CA) procedure are in the results section. HEPATIC FUNCTION PANEL (16741) Routine 11/14/2020 Results for (ALB,T.PRO,BILI 3:33 AM SODA MAKER this T,BU/BC,ALT,AST,ALK PHOS) pr ocedure are in the results section. MAGNESIUM Routine 11/14/2020 Results for 3:33 AM SODA MAKER this procedure are in the results section. PHOSPHORUS Routine 11/14/2020 Results for 3:33 AM SODA MAKER this procedure are in the results section. POCT GLUCOSE (AUTOMATED) Routine 11/14/2020 Res ults for 12:12 AM SODA MAKER this procedure are in the results section. CMV BY PCR Routine 11/13/2020 Results for 4:12 PM SODA MAKER this procedure are in the results section. POCT GLUCOSE (AUTOMATED) Routine 11/13/2020 Res ults for 1:55 PM SODA MAKER this procedure are in the results section. POCT GLUCOSE (AUTOMATED) Routine 11/13/2020 Res ults for 7:54 AM SODA MAKER this procedure are in the results section. POCT GLUCOSE (AUTOMATED) Routine 11/13/2020 Res ults for 4:41 AM SODA MAKER this procedure are in the results section. CBC WITH DIFF Routine 11/13/2020 Results for 2:50 AM SODA MAKER this procedure are in the results section. BASIC METABOLIC PANEL (NA, K, Routine 11/13/2020 Results for CL, CO2, GLUCOSE, BUN, 2:50 AM SODA MAKER this CREATININE, CA) procedure are in the results section. HEPATIC FUNCTION PANEL (13825) Routine 11/13/2020 Results for (ALB,T.PRO,BILI 2:50 AM SODA MAKER this T,BU/BC,ALT,AST,ALK PHOS) pr ocedure are in the results section. MAGNESIUM Routine 11/13/2020 Results for 2:50 AM SODA MAKER this procedure are in the results section. PHOSPHORUS Routine 11/13/2020 Results for 2:50 AM SODA MAKER this procedure are in the results section. POCT GLUCOSE (AUTOMATED) Routine 11/13/2020 Res ults for 12:38 AM SODA MAKER this procedure are in the results section. POCT GLUCOSE (AUTOMATED) Routine 11/12/2020 Res ults for 9:32 PM SODA MAKER this procedure are in the results section. CBC WITH DIFF Routine 11/12/2020 Results for 6:28 PM SODA MAKER this procedure are in the results section. GRAM POSITIVE BLOOD PATHOGENS Routine 11/12/2020 Results for DNA PROBE-AEROBIC 4:37 PM SODA MAKER this procedure are in the results section. BLOOD CULTURE WORKUP Routine 11/12/2020 Results for 4:37 PM SODA MAKER this procedure are in the results section. BLOOD CULTURE SCREEN Routine 11/12/2020 Results for 4:37 PM SODA MAKER this procedure are in the results section. BLOOD CULTURE SCREEN Routine 11/12/2020 Results for 4:37 PM SODA MAKER this procedure are in the results section. POCT GLUCOSE (AUTOMATED) Routine 11/12/2020 Res ults for 3:57 PM SODA MAKER this procedure are in the results section. TRANSFUSE PACKED RBC Routine 11/12/2020 1:49 PM SODA MAKER POCT GLUCOSE (AUTOMATED) Routine 11/12/2020 Res ults for 1:46 PM SODA MAKER this procedure are in the results section. PREPARE PACKED RBC Routine 11/12/2020 Results f or 11:34 AM SODA MAKER this procedure are in the results section. POCT GLUCOSE (AUTOMATED) Routine 11/12/2020 Res ults for 9:39 AM SODA MAKER this procedure are in the results section. CMV BY PCR Routine 11/12/2020 Results for 6:06 AM SODA MAKER this procedure are in the results section. CYTOMEGALOVIRUS ANTIBODY IGG Routine 11/12/2020 Results for 6:06 AM SODA MAKER this procedure are in the results section. CYTOMEGALOVIRUS ANTIBODY IGM Routine 11/12/2020 Results for 6:06 AM SODA MAKER this procedure are in the results section. BASIC METABOLIC PANEL (NA, K, Routine 11/12/2020 Results for CL, CO2, GLUCOSE, BUN, 6:06 AM SODA MAKER this CREATININE, CA) procedure are in the results section. HEPATIC FUNCTION PANEL (34845) Add-on 11/12/2020 Results for (ALB,T.PRO,BILI 6:06 AM SODA MAKER this T,BU/BC,ALT,AST,ALK PHOS) pr ocedure are in the results section. MAGNESIUM Add-on 11/12/2020 Results for 6:06 AM SODA MAKER this procedure are in the results section. PHOSPHORUS Add-on 11/12/2020 Results for 6:06 AM SODA MAKER this procedure are in the results section. CBC WITH DIFF Routine 11/12/2020 Results for 6:05 AM SODA MAKER this procedure are in the results section. POCT GLUCOSE (AUTOMATED) Routine 11/12/2020 Res ults for 4:04 AM SODA MAKER this procedure are in the results section. POCT GLUCOSE (AUTOMATED) Routine 11/12/2020 Res ults for 12:49 AM SODA MAKER this procedure are in the results section. HB ECG ROUTINE & RHYTHM STRIP Routine 11/11/2020 Tachycardia 11:30 PM SODA MAKER POCT GLUCOSE (AUTOMATED) Routine 11/11/2020 Res ults for 9:38 PM SODA MAKER this procedure are in the results section. POCT GLUCOSE (AUTOMATED) Routine 11/11/2020 Res ults for 5:46 PM SODA MAKER this procedure are in the results section. POCT GLUCOSE (AUTOMATED) Routine 11/11/2020 Res ults for 12:43 PM SODA MAKER this procedure are in the results section. POCT GLUCOSE (AUTOMATED) Routine 11/11/2020 Res ults for 9:34 AM SODA MAKER this procedure are in the results section. POCT GLUCOSE (AUTOMATED) Routine 11/11/2020 Res ults for 4:14 AM SODA MAKER this procedure are in the results section. CBC WITHOUT DIFF [facility] 11/11/2020 Results for 12:55 AM SODA MAKER this procedure are in the results section. BASIC METABOLIC PANEL (NA, K, Routine 11/11/2020 Results for CL, CO2, GLUCOSE, BUN, 12:55 AM SODA MAKER this CREATININE, CA) procedure are in the results section. MAGNESIUM Routine 11/11/2020 Results for 12:55 AM SODA MAKER this procedure are in the results section. PHOSPHORUS Routine 11/11/2020 Results for 12:55 AM SODA MAKER this procedure are in the results section. POCT GLUCOSE (AUTOMATED) Routine 11/11/2020 Res ults for 12:44 AM SODA MAKER this procedure are in the results section. POCT GLUCOSE (AUTOMATED) Routine 11/10/2020 Res ults for 7:38 PM SODA MAKER this procedure are in the results section. POCT GLUCOSE (AUTOMATED) Routine 11/10/2020 Res ults for 3:38 PM SODA MAKER this procedure are in the results section. POCT GLUCOSE (AUTOMATED) Routine 11/10/2020 Res ults for 11:42 AM SODA MAKER this procedure are in the results section. POCT GLUCOSE (AUTOMATED) Routine 11/10/2020 Res ults for 7:51 AM SODA MAKER this procedure are in the results section. EKG-12 LEAD Routine 11/10/2020 7:47 AM SODA MAKER POCT GLUCOSE (AUTOMATED) Routine 11/10/2020 Res ults for 3:43 AM SODA MAKER this procedure are in the results section. BASIC METABOLIC PANEL (NA, K, [facility] 11/10/2020 Results for CL, CO2, GLUCOSE, BUN, 3:42 AM SODA MAKER this CREATININE, CA) procedure are in the results section. MAGNESIUM [facility] 11/10/2020 Results for 3:42 AM SODA MAKER this procedure are in the results section. PHOSPHORUS [facility] 11/10/2020 Results for 3:42 AM SODA MAKER this procedure are in the results section. POCT GLUCOSE (AUTOMATED) Routine 11/09/2020 Res ults for 11:54 PM SODA MAKER this procedure are in the results section. POCT GLUCOSE (AUTOMATED) Routine 11/09/2020 Res ults for 7:55 PM SODA MAKER this procedure are in the results section. POCT GLUCOSE (AUTOMATED) Routine 11/09/2020 Res ults for 4:13 PM SODA MAKER this procedure are in the results section. POCT GLUCOSE (AUTOMATED) Routine 11/09/2020 Res ults for 11:34 AM SODA MAKER this procedure are in the results section. TRANSFUSE PACKED RBC Routine 11/09/2020 10:56 AM SODA MAKER PREPARE PACKED RBC Routine 11/09/2020 Results f or 8:17 AM SODA MAKER this procedure are in the results section. POCT GLUCOSE (AUTOMATED) Routine 11/09/2020 Res ults for 8:12 AM SODA MAKER this procedure are in the results section. HB ABO GROUPING Routine 11/09/2020 Results for 5:11 AM SODA MAKER this procedure are in the results section. POCT GLUCOSE (AUTOMATED) Routine 11/09/2020 Res ults for 4:05 AM SODA MAKER this procedure are in the results section. CBC WITH DIFF [facility] 11/09/2020 Results for 4:05 AM SODA MAKER this procedure are in the results section. BASIC METABOLIC PANEL (NA, K, [facility] 11/09/2020 Results for CL, CO2, GLUCOSE, BUN, 4:05 AM SODA MAKER this CREATININE, CA) procedure are in the results section. MAGNESIUM [facility] 11/09/2020 Results for 4:05 AM SODA MAKER this procedure are in the results section. PHOSPHORUS [facility] 11/09/2020 Results for 4:05 AM SODA MAKER this procedure are in the results section. POCT GLUCOSE (AUTOMATED) Routine 11/09/2020 Res ults for 12:04 AM SODA MAKER this procedure are in the results section. HB ECG ROUTINE & RHYTHM STRIP Routine 11/08/2020 Achalasia 9:50 PM SODA MAKER POCT GLUCOSE (AUTOMATED) Routine 11/08/2020 Res ults for 7:59 PM SODA MAKER this procedure are in the results section. POCT GLUCOSE (AUTOMATED) Routine 11/08/2020 Res ults for 3:29 PM SODA MAKER this procedure are in the results section. ACUTE CARE ARTERIAL BLOOD GAS [facility] 11/08/2020 Results for 11:48 AM SODA MAKER this procedure are in the results section. POCT GLUCOSE (AUTOMATED) Routine 11/08/2020 Res ults for 11:11 AM SODA MAKER this procedure are in the results section. POCT GLUCOSE (AUTOMATED) Routine 11/08/2020 Res ults for 8:56 AM SODA MAKER this procedure are in the results section. BASIC METABOLIC PANEL (NA, K, [facility] 11/08/2020 Results for CL, CO2, GLUCOSE, BUN, 4:30 AM SODA MAKER this CREATININE, CA) procedure are in the results section. MAGNESIUM [facility] 11/08/2020 Results for 4:30 AM SODA MAKER this procedure are in the results section. PHOSPHORUS [facility] 11/08/2020 Results for 4:30 AM SODA MAKER this procedure are in the results section. POCT GLUCOSE (AUTOMATED) Routine 11/08/2020 Res ults for 4:11 AM SODA MAKER this procedure are in the results section. POCT GLUCOSE (AUTOMATED) Routine 11/08/2020 Res ults for 1:37 AM SODA MAKER this procedure are in the results section. POCT GLUCOSE (AUTOMATED) Routine 11/07/2020 Res ults for 9:22 PM SODA MAKER this procedure are in the results section. POCT GLUCOSE (AUTOMATED) Routine 11/07/2020 Res ults for 6:46 PM SODA MAKER this procedure are in the results section. POCT GLUCOSE (AUTOMATED) Routine 11/07/2020 Res ults for 6:10 PM SODA MAKER this procedure are in the results section. PROTEIN QUANT U/24H [facility] 11/07/2020 Results for 4:47 PM SODA MAKER this procedure are in the results section. POCT GLUCOSE (AUTOMATED) Routine 11/07/2020 Res ults for 4:06 PM SODA MAKER this procedure are in the results section. BLOOD CULTURE SCREEN [facility] 11/07/2020 Results for 3:51 PM SODA MAKER this procedure are in the results section. COMP. METABOLIC PANEL ([id number]) [facility] 11/07/2020 Results for 3:49 PM SODA MAKER this procedure are in the results section. MAGNESIUM [facility] 11/07/2020 Results for 3:49 PM SODA MAKER this procedure are in the results section. PHOSPHORUS [facility] 11/07/2020 Results for 3:49 PM SODA MAKER this procedure are in the results section. BLOOD CULTURE SCREEN [facility] 11/07/2020 Results for 3:49 PM SODA MAKER this procedure are in the results section. POCT GLUCOSE (AUTOMATED) Routine 11/07/2020 Res ults for 2:47 PM SODA MAKER this procedure are in the results section. POCT GLUCOSE (AUTOMATED) Routine 11/07/2020 Res ults for 11:35 AM SODA MAKER this procedure are in the results section. POCT GLUCOSE (AUTOMATED) Routine 11/07/2020 Res ults for 10:39 AM SODA MAKER this procedure are in the results section. ACUTE CARE ARTERIAL BLOOD GAS [facility] 11/07/2020 Results for 9:24 AM SODA MAKER this procedure are in the results section. POCT GLUCOSE (AUTOMATED) Routine 11/07/2020 Res ults for 7:43 AM SODA MAKER this procedure are in the results section. BASIC METABOLIC PANEL (NA, K, [facility] 11/07/2020 Results for CL, CO2, GLUCOSE, BUN, 6:34 AM SODA MAKER this CREATININE, CA) procedure are in the results section. MAGNESIUM [facility] 11/07/2020 Results for 6:34 AM SODA MAKER this procedure are in the results section. PHOSPHORUS [facility] 11/07/2020 Results for 6:34 AM SODA MAKER this procedure are in the results section. POCT GLUCOSE (AUTOMATED) Routine 11/07/2020 Res ults for 4:27 AM SODA MAKER this procedure are in the results section. CATHETER TIP CULTURE [facility] 11/07/2020 Results for 1:57 AM SODA MAKER this procedure are in the results section. CATHETER TIP CULTURE [facility] 11/07/2020 Results for 1:56 AM SODA MAKER this procedure are in the results section. POCT GLUCOSE (AUTOMATED) Routine 11/07/2020 Res ults for 12:03 AM SODA MAKER this procedure are in the results section. BLOOD CULTURE SCREEN [facility] 11/06/2020 Results for 6:16 PM SODA MAKER this procedure are in the results section. COMP. METABOLIC PANEL ([id number]) [facility] 11/06/2020 Results for 6:15 PM SODA MAKER this procedure are in the results section. MAGNESIUM [facility] 11/06/2020 Results for 6:15 PM SODA MAKER this procedure are in the results section. PHOSPHORUS [facility] 11/06/2020 Results for 6:15 PM SODA MAKER this procedure are in the results section. POCT GLUCOSE (AUTOMATED) Routine 11/06/2020 Res ults for 6:13 PM SODA MAKER this procedure are in the results section. XR CHEST 1 VW [facility] 11/06/2020 Achalasia Results for 5:50 PM SODA MAKER Esophageal this dysphagia procedure Severe are in the protein-calorie results malnutrition section. Cachexia POCT GLUCOSE (AUTOMATED) Routine 11/06/2020 Res ults for 3:25 PM SODA MAKER this procedure are in the results section. POCT GLUCOSE (AUTOMATED) Routine 11/06/2020 Res ults for 11:43 AM SODA MAKER this procedure are in the results section. POCT GLUCOSE (AUTOMATED) Routine 11/06/2020 Res ults for 10:06 AM SODA MAKER this procedure are in the results section. POCT GLUCOSE (AUTOMATED) Routine 11/06/2020 Res ults for 7:27 AM SODA MAKER this procedure are in the results section. LIPID PANEL ([id number])(TOTAL Add-on 11/06/2020 Re sults for CHOLESTEROL, TRIGLYCERIDES, 5:01 AM SODA MAKER this HDL) procedure are in the results section. COMP. METABOLIC PANEL ([id number]) [facility] 11/06/2020 Results for 5:01 AM SODA MAKER this procedure are in the results section. MAGNESIUM [facility] 11/06/2020 Results for 5:01 AM SODA MAKER this procedure are in the results section. CREATINE KINASE Add-on 11/06/2020 Results for 5:01 AM SODA MAKER this procedure are in the results section. PHOSPHORUS [facility] 11/06/2020 Results for 5:01 AM SODA MAKER this procedure are in the results section. ACUTE CARE ARTERIAL BLOOD GAS [facility] 11/06/2020 Results for 4:51 AM SODA MAKER this procedure are in the results section. POCT GLUCOSE (AUTOMATED) Routine 11/06/2020 Res ults for 4:25 AM SODA MAKER this procedure are in the results section. POCT GLUCOSE (AUTOMATED) Routine 11/06/2020 Res ults for 2:12 AM SODA MAKER this procedure are in the results section. POCT GLUCOSE (AUTOMATED) Routine 11/05/2020 Res ults for 7:37 PM SODA MAKER this procedure are in the results section. WOUND CULTURE [facility] 11/05/2020 Results for 6:35 PM SODA MAKER this procedure are in the results section. WOUND/ASPIRATE OR ABSCESS [facility] 11/05/2020 Re sults for CULTURE 6:35 PM SODA MAKER this procedure are in the results section. POCT GLUCOSE (AUTOMATED) Routine 11/05/2020 Res ults for 6:28 PM SODA MAKER this procedure are in the results section. POCT GLUCOSE (AUTOMATED) Routine 11/05/2020 Res ults for 3:32 PM SODA MAKER this procedure are in the results section. POCT GLUCOSE (AUTOMATED) Routine 11/05/2020 Res ults for 2:33 PM SODA MAKER this procedure are in the results section. BLOOD CULTURE SCREEN [facility] 11/05/2020 Results for 2:23 PM SODA MAKER this procedure are in the results section. COMP. METABOLIC PANEL ([id number]) [facility] 11/05/2020 Results for 2:17 PM SODA MAKER this procedure are in the results section. MAGNESIUM [facility] 11/05/2020 Results for 2:17 PM SODA MAKER this procedure are in the results section. PHOSPHORUS [facility] 11/05/2020 Results for 2:17 PM SODA MAKER this procedure are in the results section. BLOOD CULTURE SCREEN [facility] 11/05/2020 Results for 2:17 PM SODA MAKER this procedure are in the results section. POCT GLUCOSE (AUTOMATED) Routine 11/05/2020 Res ults for 1:07 PM SODA MAKER this procedure are in the results section. POCT GLUCOSE (AUTOMATED) Routine 11/05/2020 Res ults for 9:57 AM SODA MAKER this procedure are in the results section. POCT GLUCOSE (AUTOMATED) Routine 11/05/2020 Res ults for 7:49 AM SODA MAKER this procedure are in the results section. POCT GLUCOSE (AUTOMATED) Routine 11/05/2020 Res ults for 5:33 AM SODA MAKER this procedure are in the results section. COMP. METABOLIC PANEL ([id number]) [facility] 11/05/2020 Results for 5:27 AM SODA MAKER this procedure are in the results section. MAGNESIUM [facility] 11/05/2020 Results for 5:27 AM SODA MAKER this procedure are in the results section. LACTATE DEHYDROGENASE [facility] 11/05/2020 Result s for 5:27 AM SODA MAKER this procedure are in the results section. PHOSPHORUS [facility] 11/05/2020 Results for 5:27 AM SODA MAKER this procedure are in the results section. FUNGUS (BLOOD) CULTURE [facility] 11/05/2020 5:23 AM SODA MAKER BLOOD CULTURE SCREEN [facility] 11/05/2020 Results for 5:23 AM SODA MAKER this procedure are in the results section. ACUTE CARE ARTERIAL BLOOD GAS [facility] 11/05/2020 Results for 5:18 AM SODA MAKER this procedure are in the results section. POCT GLUCOSE (AUTOMATED) Routine 11/04/2020 Res ults for 11:58 PM SODA MAKER this procedure are in the results section. BLOOD CULTURE SCREEN [facility] 11/04/2020 Results for 1:33 PM SODA MAKER this procedure are in the results section. CMV BY PCR [facility] 11/04/2020 Results for 6:02 AM SODA MAKER this procedure are in the results section. CBC WITH DIFF [facility] 11/04/2020 Results for 6:02 AM SODA MAKER this procedure are in the results section. ACUTE CARE ARTERIAL BLOOD GAS [facility] 11/04/2020 Results for 6:02 AM SODA MAKER this procedure are in the results section. COMP. METABOLIC PANEL ([id number]) [facility] 11/04/2020 Results for 6:02 AM SODA MAKER this procedure are in the results section. MAGNESIUM [facility] 11/04/2020 Results for 6:02 AM SODA MAKER this procedure are in the results section. PHOSPHORUS [facility] 11/04/2020 Results for 6:02 AM SODA MAKER this procedure are in the results section. CT THORAX W CONTRAST [facility] 11/03/2020 Achalasia Results for 6:07 PM SODA MAKER this procedure are in the results section. ACUTE CARE ARTERIAL BLOOD GAS [facility] 11/03/2020 Results for 3:19 PM SODA MAKER this procedure are in the results section. ECHO ROUTINE W/DOPPLER COLOR Routine 11/03/2020 Achalasia 2:52 PM SODA MAKER SPUTUM CULTURE [facility] 11/03/2020 Results for 8:02 AM SODA MAKER this procedure are in the results section. ACUTE CARE ARTERIAL BLOOD GAS STAT 11/03/2020 Results for 7:55 AM SODA MAKER this procedure are in the results section. POCT GLUCOSE (AUTOMATED) Routine 11/03/2020 Res ults for 5:45 AM SODA MAKER this procedure are in the results section. CMV BY PCR [facility] 11/03/2020 Results for 3:22 AM SODA MAKER this procedure are in the results section. CBC WITH DIFF [facility] 11/03/2020 Results for 3:22 AM SODA MAKER this procedure are in the results section. COMP. METABOLIC PANEL ([id number]) [facility] 11/03/2020 Results for 3:22 AM SODA MAKER this procedure are in the results section. MAGNESIUM [facility] 11/03/2020 Results for 3:22 AM SODA MAKER this procedure are in the results section. PHOSPHORUS [facility] 11/03/2020 Results for 3:22 AM SODA MAKER this procedure are in the results section. ACUTE CARE ARTERIAL BLOOD GAS STAT 11/02/2020 Results for 4:12 PM SODA MAKER this procedure are in the results section. BLOOD CULTURE WORKUP Routine 11/02/2020 Results for 10:21 AM SODA MAKER this procedure are in the results section. BLOOD CULTURE SCREEN [facility] 11/02/2020 Results for 10:21 AM SODA MAKER this procedure are in the results section. MRSA / MSSA SCREEN BY PCR, Routine 11/02/2020 R esults for NARES 8:40 AM SODA MAKER this procedure are in the results section. MAGNESIUM Add-on 11/02/2020 Results for 8:40 AM SODA MAKER this procedure are in the results section. GAMMA GLUTAMYLTRANSFERASE [facility] 11/02/2020 Re sults for 8:40 AM SODA MAKER this procedure are in the results section. MITOCHONDRIAL M2 AB, IGG [facility] 11/02/2020 Res ults for 8:40 AM SODA MAKER this procedure are in the results section. CMV BY PCR [facility] 11/02/2020 Results for 8:39 AM SODA MAKER this procedure are in the results section. LAB ONLY COVID INTERPRETATION Routine 11/02/2020 Results for 8:13 AM SODA MAKER this procedure are in the results section. COVID-19 (MOLECULAR TESTING Routine 11/02/2020 Results for NUCLEIC ACID AMPLIFICATION) 8:13 AM SODA MAKER this procedure are in the results section. BLOOD CULTURE WORKUP Routine 11/02/2020 Results for 8:07 AM SODA MAKER this procedure are in the results section. BLOOD CULTURE SCREEN [facility] 11/02/2020 Results for 8:07 AM SODA MAKER this procedure are in the results section. XR CHEST 1 VW Routine 11/02/2020 Achalasia Results for 8:00 AM SODA MAKER this procedure are in the results section. AC ABG + LACTIC ACID STAT 11/02/2020 Results for 7:38 AM SODA MAKER this procedure are in the results section. CBC WITH DIFF [facility] 11/02/2020 Results for 7:37 AM SODA MAKER this procedure are in the results section. PHOSPHORUS [facility] 11/02/2020 Results for 7:37 AM SODA MAKER this procedure are in the results section. PROTHROMBIN TIME / INR STAT 11/02/2020 Resul ts for 7:36 AM SODA MAKER this procedure are in the results section. BASIC METABOLIC PANEL (NA, K, STAT 11/02/2020 Results for CL, CO2, GLUCOSE, BUN, 7:36 AM SODA MAKER this CREATININE, CA) procedure are in the results section. HEPATIC FUNCTION PANEL ([id number]) STAT 11/02/2020 Results for (ALB,T.PRO,BILI 7:36 AM SODA MAKER this T,BU/BC,ALT,AST,ALK PHOS) pr ocedure are in the results section. TROPONIN I STAT 11/02/2020 Results for 7:36 AM SODA MAKER this procedure are in the results section. MAGNESIUM STAT 11/02/2020 Results for 7:36 AM SODA MAKER this procedure are in the results section. LACTATE DEHYDROGENASE [facility] 11/02/2020 Result s for 7:36 AM SODA MAKER this procedure are in the results section. PHOSPHORUS STAT 11/02/2020 Results for 7:36 AM SODA MAKER this procedure are in the results section. D-DIMER [facility] 11/02/2020 Results for 7:35 AM SODA MAKER this procedure are in the results section. ACUTE CARE ARTERIAL BLOOD GAS Routine 11/02/2020 Results for 5:20 AM SODA MAKER this procedure are in the results section. LAB ONLY COVID INTERPRETATION Routine 11/02/2020 Results for 5:17 AM SODA MAKER this procedure are in the results section. COVID-19 (ID NOW RAPID Routine 11/02/2020 Resul ts for TESTING) 5:17 AM SODA MAKER this procedure are in the results section. D-DIMER Routine 11/02/2020 Results for 4:07 AM SODA MAKER this procedure are in the results section. CBC WITH DIFF Routine 11/02/2020 Results for 4:07 AM SODA MAKER this procedure are in the results section. COMP. METABOLIC PANEL ([id number]) Routine 11/02/2020 Results for 4:07 AM SODA MAKER this procedure are in the results section. MAGNESIUM Routine 11/02/2020 Results for 4:07 AM SODA MAKER this procedure are in the results section. PHOSPHORUS Routine 11/02/2020 Results for 4:07 AM SODA MAKER this procedure are in the results section. XR CHEST 1 VW Routine 11/02/2020 Fever, unspecified Results for 3:40 AM SODA MAKER fever cause this procedure are in the results section. ACUTE CARE ARTERIAL BLOOD GAS Routine 11/02/2020 Results for 3:03 AM SODA MAKER this procedure are in the results section. VANCOMYCIN TROUGH [facility] 11/01/2020 Results fo r 1:09 PM SODA MAKER this procedure are in the results section. FIBRINOGEN [facility] 11/01/2020 Results for 10:45 AM SODA MAKER this procedure are in the results section. PROTHROMBIN TIME / INR [facility] 11/01/2020 Resul ts for 10:45 AM SODA MAKER this procedure are in the results section. CBC WITHOUT DIFF STAT 11/01/2020 Results for 10:45 AM SODA MAKER this procedure are in the results section. HUMAN IMMUNODEFICIENCY VIRUS 1 [facility] 11/01/2020 Results for (HIV-1) BY QUANTITATIVE NAAT 4:48 AM SODA MAKER this procedure are in the results section. CBC WITH DIFF [facility] 11/01/2020 Results for 4:48 AM SODA MAKER this procedure are in the results section. COMP. METABOLIC PANEL ([id number]) [facility] 11/01/2020 Results for 4:48 AM SODA MAKER this procedure are in the results section. MAGNESIUM [facility] 11/01/2020 Results for 4:48 AM SODA MAKER this procedure are in the results section. PHOSPHORUS [facility] 11/01/2020 Results for 4:48 AM SODA MAKER this procedure are in the results section. US ABDOMEN COMPLETE STAT 11/01/2020 Achalasia Results for 1:53 AM SODA MAKER this procedure are in the results section. TRANSFUSE PACKED RBC Routine 10/31/2020 11:40 PM SODA MAKER PREPARE PACKED RBC Routine 10/31/2020 Results f or 11:27 PM SODA MAKER this procedure are in the results section. CT THORAX W CONTRAST STAT 10/31/2020 Achalasia Results for 10:08 PM SODA MAKER this procedure are in the results section. CT ABDOMEN PELVIS W CONTRAST STAT 10/31/2020 Achalasia Results for 10:08 PM SODA MAKER this procedure are in the results section. XR CHEST 1 VW STAT 10/31/2020 Achalasia Results for 7:28 PM SODA MAKER this procedure are in the results section. HB ABO GROUPING [facility] 10/31/2020 Results for 5:30 PM SODA MAKER this procedure are in the results section. EXTRA TUBE RED [facility] 10/31/2020 3:01 PM SODA MAKER DIFF CONSULT INTERPRETATION Routine 10/31/2020 Results for 3:01 PM SODA MAKER this procedure are in the results section. EXTRA TUBE SST [facility] 10/31/2020 3:01 PM SODA MAKER EXTRA TUBE LT. BLUE [facility] 10/31/2020 3:01 PM SODA MAKER RETICULOCYTES AUTOMATED Add-on 10/31/2020 Resu lts for 3:01 PM SODA MAKER this procedure are in the results section. RPR (QUANTITATIVE) Add-on 10/31/2020 Results f or 3:01 PM SODA MAKER this procedure are in the results section. PROTHROMBIN TIME / INR Add-on 10/31/2020 Resul ts for 3:01 PM SODA MAKER this procedure are in the results section. CBC WITH DIFF STAT 10/31/2020 Results for 3:01 PM SODA MAKER this procedure are in the results section. DIFF CONSULT INTERPRETATION Add-on 10/31/2020 Results for 3:01 PM SODA MAKER this procedure are in the results section. IRON PANEL Add-on 10/31/2020 Results for 3:01 PM SODA MAKER this procedure are in the results section. LIPID PANEL ([id number])(TOTAL Add-on 10/31/2020 Re sults for CHOLESTEROL, TRIGLYCERIDES, 3:01 PM SODA MAKER this HDL) procedure are in the results section. BASIC METABOLIC PANEL (NA, K, Routine 10/31/2020 Results for CL, CO2, GLUCOSE, BUN, 3:01 PM SODA MAKER this CREATININE, CA) procedure are in the results section. HEPATIC FUNCTION PANEL ([id number]) Add-on 10/31/2020 Results for (ALB,T.PRO,BILI 3:01 PM SODA MAKER this T,BU/BC,ALT,AST,ALK PHOS) pr ocedure are in the results section. FERRITIN SERUM Add-on 10/31/2020 Results for 3:01 PM SODA MAKER this procedure are in the results section. MAGNESIUM Routine 10/31/2020 Results for 3:01 PM SODA MAKER this procedure are in the results section. CREATINE KINASE [facility] 10/31/2020 Results for 3:01 PM SODA MAKER this procedure are in the results section. PHOSPHORUS Routine 10/31/2020 Results for 3:01 PM SODA MAKER this procedure are in the results section. HB ECG ROUTINE & RHYTHM STRIP STAT 10/31/2020 Achalasia 1:30 PM SODA MAKER POCT GLUCOSE (AUTOMATED) Routine 10/31/2020 Res ults for 11:38 AM SODA MAKER this procedure are in the results section. PROTEIN CREAT RATIO URINE Add-on 10/31/2020 Re sults for RANDOM 8:20 AM SODA MAKER this procedure are in the results section. URINE DRUG (LCMSMS) - Routine 10/31/2020 Result s for SYNTHETIC OPIATES PANEL 8:20 AM SODA MAKER this procedure are in the results section. URINE DRUG (LCMSMS) - OPIATES Routine 10/31/2020 Results for PANEL 8:20 AM SODA MAKER this procedure are in the results section. URINE CULTURE Routine 10/31/2020 Results for 8:20 AM SODA MAKER this procedure are in the results section. URINALYSIS Routine 10/31/2020 Results for 8:20 AM SODA MAKER this procedure are in the results section. GALV/CLC ONLY - URINE DRUG Add-on 10/31/2020 R esults for (IMMUNOASSAY) - COMPREHENSIVE 8:20 AM SODA MAKER this DRUG SCREEN procedure are in the results section. POCT GLUCOSE (AUTOMATED) Routine 10/31/2020 Res ults for 7:34 AM SODA MAKER this procedure are in the results section. EXTRA TUBE LT. GREEN Routine 10/31/2020 6:59 AM SODA MAKER BLOOD CULTURE SCREEN Routine 10/31/2020 Results for 6:57 AM SODA MAKER this procedure are in the results section. BLOOD CULTURE SCREEN Routine 10/31/2020 Results for 6:56 AM SODA MAKER this procedure are in the results section. PROCALCITONIN Routine 10/31/2020 Results for 6:55 AM SODA MAKER this procedure are in the results section. LACTIC ACID WHOLE BLOOD STAT 10/31/2020 Resu lts for 6:55 AM SODA MAKER this procedure are in the results section. CBC WITH DIFF Routine 10/31/2020 Results for 6:55 AM SODA MAKER this procedure are in the results section. XR CHEST 1 VW [facility] 10/31/2020 Fever, unspecified Results for 6:52 AM SODA MAKER fever cause this procedure are in the results section. COMP. METABOLIC PANEL ([id number]) Routine 10/31/2020 Results for 4:22 AM SODA MAKER this procedure are in the results section. MAGNESIUM Routine 10/31/2020 Results for 4:22 AM SODA MAKER this procedure are in the results section. PHOSPHORUS Routine 10/31/2020 Results for 4:22 AM SODA MAKER this procedure are in the results section. POCT GLUCOSE (AUTOMATED) Routine 10/30/2020 Res ults for 8:35 PM SODA MAKER this procedure are in the results section. BASIC METABOLIC PANEL (NA, K, Routine 10/30/2020 Results for CL, CO2, GLUCOSE, BUN, 5:17 PM SODA MAKER this CREATININE, CA) procedure are in the results section. MAGNESIUM Routine 10/30/2020 Results for 5:17 PM SODA MAKER this procedure are in the results section. PHOSPHORUS Routine 10/30/2020 Results for 5:17 PM SODA MAKER this procedure are in the results section. POCT GLUCOSE (AUTOMATED) Routine 10/30/2020 Res ults for 4:33 PM SODA MAKER this procedure are in the results section. HAPTOGLOBIN, SERUM Add-on 10/30/2020 Results f or 9:43 AM SODA MAKER this procedure are in the results section. IONIZED CALCIUM Routine 10/30/2020 Results for 9:43 AM SODA MAKER this procedure are in the results section. COMP. METABOLIC PANEL ([id number]) Routine 10/30/2020 Results for 5:55 AM SODA MAKER this procedure are in the results section. MAGNESIUM Routine 10/30/2020 Results for 5:55 AM SODA MAKER this procedure are in the results section. PHOSPHORUS Routine 10/30/2020 Results for 5:55 AM SODA MAKER this procedure are in the results section. BASIC METABOLIC PANEL (NA, K, Routine 10/29/2020 Results for CL, CO2, GLUCOSE, BUN, 4:59 PM SODA MAKER this CREATININE, CA) procedure are in the results section. MAGNESIUM Routine 10/29/2020 Results for 4:59 PM SODA MAKER this procedure are in the results section. PHOSPHORUS Routine 10/29/2020 Results for 4:59 PM SODA MAKER this procedure are in the results section. COMP. METABOLIC PANEL ([id number]) Routine 10/29/2020 Results for 4:11 AM SODA MAKER this procedure are in the results section. MAGNESIUM Routine 10/29/2020 Results for 4:11 AM SODA MAKER this procedure are in the results section. PHOSPHORUS Routine 10/29/2020 Results for 4:11 AM SODA MAKER this procedure are in the results section. BASIC METABOLIC PANEL (NA, K, Routine 10/28/2020 Results for CL, CO2, GLUCOSE, BUN, 5:32 AM SODA MAKER this CREATININE, CA) procedure are in the results section. MAGNESIUM Routine 10/28/2020 Results for 5:32 AM SODA MAKER this procedure are in the results section. ALBUMIN Add-on 10/28/2020 Results for 5:32 AM SODA MAKER this procedure are in the results section. PHOSPHORUS Routine 10/28/2020 Results for 5:32 AM SODA MAKER this procedure are in the results section. EGD (ENDO) Routine 10/27/2020 1:50 PM SODA MAKER PERCUTANEOUS ENDOSCOPIC Level 4 10/27/2020 Ach[facility]asia GASTRIC TUBE PLACEMENT (within 0-5 1:45 PM SODA MAKER days) ESOPHAGOGASTRODUODENOSCOPY Level 4 10/27/2020 Achalasia (within 0-5 1:45 PM SODA MAKER days) POCT GLUCOSE (AUTOMATED) Routine 10/27/2020 Res ults for 11:46 AM SODA MAKER this procedure are in the results section. POCT GLUCOSE (AUTOMATED) Routine 10/27/2020 Res ults for 10:26 AM SODA MAKER this procedure are in the results section. CBC WITH DIFF Routine 10/27/2020 Results for 5:00 AM SODA MAKER this procedure are in the results section. COMP. METABOLIC PANEL ([id number]) Routine 10/27/2020 Results for 5:00 AM SODA MAKER this procedure are in the results section. MAGNESIUM Routine 10/27/2020 Results for 5:00 AM SODA MAKER this procedure are in the results section. PHOSPHORUS Routine 10/27/2020 Results for 5:00 AM SODA MAKER this procedure are in the results section. LAB ONLY COVID INTERPRETATION Routine 10/26/2020 Results for 8:35 AM SODA MAKER this procedure are in the results section. COVID-19 (ID NOW RAPID Routine 10/26/2020 Resul ts for TESTING) 8:35 AM SODA MAKER this procedure are in the results section. POCT GLUCOSE (AUTOMATED) Routine 10/26/2020 Res ults for 5:44 AM SODA MAKER this procedure are in the results section. BASIC METABOLIC PANEL (NA, K, Routine 10/26/2020 Results for CL, CO2, GLUCOSE, BUN, 4:01 AM SODA MAKER this CREATININE, CA) procedure are in the results section. PHOSPHORUS Routine 10/26/2020 Results for 4:01 AM SODA MAKER this procedure are in the results section. POCT GLUCOSE (AUTOMATED) Routine 10/25/2020 Res ults for 4:48 AM SODA MAKER this procedure are in the results section. BASIC METABOLIC PANEL (NA, K, Routine 10/25/2020 Results for CL, CO2, GLUCOSE, BUN, 3:48 AM SODA MAKER this CREATININE, CA) procedure are in the results section. PHOSPHORUS Routine 10/25/2020 Results for 3:48 AM SODA MAKER this procedure are in the results section. BASIC METABOLIC PANEL (NA, K, Add-on 10/24/2020 Results for CL, CO2, GLUCOSE, BUN, 5:24 AM SODA MAKER this CREATININE, CA) procedure are in the results section. PHOSPHORUS Routine 10/24/2020 Results for 5:24 AM SODA MAKER this procedure are in the results section. CBC WITH DIFF Routine 10/23/2020 Results for 4:57 AM SODA MAKER this procedure are in the results section. COMP. METABOLIC PANEL ([id number]) Routine 10/23/2020 Results for 4:57 AM SODA MAKER this procedure are in the results section. MAGNESIUM Routine 10/23/2020 Results for 4:57 AM SODA MAKER this procedure are in the results section. PHOSPHORUS Routine 10/23/2020 Results for 4:57 AM SODA MAKER this procedure are in the results section. CBC WITH DIFF Routine 10/22/2020 Results for 3:44 AM SODA MAKER this procedure are in the results section. COMP. METABOLIC PANEL ([id number]) Routine 10/22/2020 Results for 3:44 AM SODA MAKER this procedure are in the results section. MAGNESIUM Routine 10/22/2020 Results for 3:44 AM SODA MAKER this procedure are in the results section. POCT GLUCOSE (AUTOMATED) Routine 10/21/2020 Res ults for 2:15 PM SODA MAKER this procedure are in the results section. ESOPHAGEAL MANOMETRY Level 4 10/21/2020 Achalasia (within 0-5 1:00 PM SODA MAKER days) ESOPHAGOGASTRODUODENOSCOPY Level 4 10/21/2020 Achalasia (within 0-5 1:00 PM SODA MAKER days) EGD (ENDO) Routine 10/21/2020 12:56 PM SODA MAKER PROTHROMBIN TIME / INR Routine 10/21/2020 Resul ts for 4:15 AM SODA MAKER this procedure are in the results section. CBC WITH DIFF Routine 10/21/2020 Results for 4:15 AM SODA MAKER this procedure are in the results section. COMP. METABOLIC PANEL ([id number]) Routine 10/21/2020 Results for 4:15 AM SODA MAKER this procedure are in the results section. MAGNESIUM Routine 10/21/2020 Results for 4:15 AM SODA MAKER this procedure are in the results section. MOTILITY REPORTS EPIC Routine 10/21/2020 12:01 AM SODA MAKER LAB ONLY COVID INTERPRETATION Routine 10/20/2020 Results for 5:08 PM SODA MAKER this procedure are in the results section. COVID-19 (ID NOW RAPID Routine 10/20/2020 Resul ts for TESTING) 5:08 PM SODA MAKER this procedure are in the results section. POCT GLUCOSE (AUTOMATED) Routine 10/19/2020 Res ults for 10:03 AM SODA MAKER this procedure are in the results section. POCT GLUCOSE (AUTOMATED) Routine 10/19/2020 Res ults for 8:21 AM SODA MAKER this procedure are in the results section. POCT GLUCOSE(AGE >30DAYS) Routine 10/19/2020 Hypoglycemia Re sults for 8:18 AM SODA MAKER this procedure are in the results section. CBC WITH DIFF Routine 10/19/2020 Results for 8:18 AM SODA MAKER this procedure are in the results section. URINALYSIS STAT 10/19/2020 Pain Results for 6:34 AM SODA MAKER this procedure are in the results section. GALV/CLC ONLY - URINE DRUG Routine 10/19/2020 R esults for (IMMUNOASSAY) - COMPREHENSIVE 6:34 AM SODA MAKER this DRUG SCREEN procedure are in the results section. URINE CULTURE Routine 10/19/2020 Pain Results for 6:33 AM SODA MAKER this procedure are in the results section. CBC WITH DIFF Routine 10/19/2020 Results for 6:11 AM SODA MAKER this procedure are in the results section. BASIC METABOLIC PANEL (NA, K, Routine 10/19/2020 Results for CL, CO2, GLUCOSE, BUN, 6:11 AM SODA MAKER this CREATININE, CA) procedure are in the results section. HEPATIC FUNCTION PANEL ([id number]) Routine 10/19/2020 Results for (ALB,T.PRO,BILI 6:11 AM SODA MAKER this T,BU/BC,ALT,AST,ALK PHOS) pr ocedure are in the results section. MAGNESIUM Routine 10/19/2020 Results for 6:11 AM SODA MAKER this procedure are in the results section. PHOSPHORUS Routine 10/19/2020 Results for 6:11 AM SODA MAKER this procedure are in the results section. documented in this encounter Results CBC WITH DIFF (11/22/2020 4:35 AM SODA MAKER) Pathologist Sig nature WBC 6.96 4.20 - 10.70 [facility] 10*3/L SERVICES RBC 2.94 (L) 4.26 - 5.52 [facility] 10*6/L SERVICES HGB 8.9 (L) 12.2 - 16.4 [facility] g/dL SERVICES HCT 27.1 (L) 38.4 - 49.3 % [facility] MCV 92.2 81.7 - 95.6 fL [facility] MCH 30.3 26.1 - 32.7 pg [facility] MCHC 32.8 31.2 - 35.0 [facility] g/dL SERVICES RDW-SD 47.6 38.5 - 51.6 fL [facility] RDW-CV 17.5 (H) 12.1 - 15.4 % [facility] PLT 426 (H) 150 - 328 [facility] 10*3/L SERVICES MPV 10.4 9.8 - 13.0 fL [facility] NRBC/100 WBC 0.0 0.0 - 10.0 /100 [facility] WBCs SERVICES NRBC x10^3 <0.01 10*3/L [facility] GRAN MAT (NEUT) % 72.4 % [facility] IMM GRAN % 0.40 % [facility] LYMPH % 23.4 % [facility] MONO % 3.7 % [facility] EOS % 0.0 % [facility] BASO % 0.1 % [facility] GRAN MAT x10^3(ANC) 5.03 1.99 - 6.95 [facility] 10*3/uL SERVICES IMM GRAN x10^3 0.03 0.00 - 0.06 [facility] 10*3/uL SERVICES LYMPH x10^3 1.63 1.09 - 3.23 [facility] 10*3/uL SERVICES MONO x10^3 0.26 (L) 0.36 - 1.02 [facility] 10*3/uL SERVICES EOS x10^3 <0.03 (L) 0.06 - 0.53 [facility] 10*3/uL SERVICES BASO x10^3 <0.03 0.01 - 0.09 [facility] 10*3/uL SERVICES Specimen Blood - ARM, RIGHT Performing Organization Address City/State/Zipcode Phone Number [facility] CLIA: [id number] [place] [address] [place] [address] BASIC METABOLIC PANEL (NA, K, CL, CO2, GLUCOSE, BUN, CREATININE, CA) (11/22/2020 4:35 AM SODA MAKER) NA 134 (L) 135 - 145 [facility] mmol/L SERVICES K 4.2 3.5 - 5.0 [facility] mmol/L SERVICES CL 101 98 - 108 mmol/L [facility] SERVICES CO2 TOTAL 32 (H) 23 - 31 mmol/L [facility] SERVICES AGAP 1 (L) 2 - 16 [facility] SERVICES BUN 10 7 - 23 mg/dL [facility] SERVICES GLUCOSE 99 70 - 110 mg/dL [facility] SERVICES CREATININE 0.18 (L) 0.60 - 1.25 [facility] mg/dL SERVICES CALCIUM 7.6 (L) 8.6 - 10.6 [facility] mg/dL SERVICES eGFR Calculation 611.7 mL/min/1.73m2 [facility] (Non- SERVICES [place]) eGFR Calculation 741.4 mL/min/1.73m2 [facility] () SERVICES Specimen Blood - ARM, RIGHT Narrative Performed At Association of Glomerular Filtration Rate (GFR) and St aging [facility] SERVICES of Kidney Disease* + + [...] . Performing Organization Address City/State/Zipcode Phone Number [facility] CLIA: [id number] [place] [address] [place] [address] WITH DIFF (11/21/2020 6:01 AM SODA MAKER) Pathologist Sig nature WBC 8.42 4.20 - 10.70 [facility] 10*3/L SERVICES RBC 3.18 (L) 4.26 - 5.52 [facility] 10*6/L SERVICES HGB 9.6 (L) 12.2 - 16.4 [facility] g/dL SERVICES HCT 28.6 (L) 38.4 - 49.3 % [facility] MCV 89.9 81.7 - 95.6 fL [facility] MCH 30.2 26.1 - 32.7 pg [facility] MCHC 33.6 31.2 - 35.0 [facility] g/dL SERVICES RDW-SD 44.5 38.5 - 51.6 fL [facility] RDW-CV 16.7 (H) 12.1 - 15.4 % [facility] PLT 445 (H) 150 - 328 [facility] 10*3/L SERVICES MPV 10.2 9.8 - 13.0 fL [facility] NRBC/100 WBC 0.0 0.0 - 10.0 /100 [facility] WBCs SERVICES NRBC x10^3 <0.01 10*3/L [facility] GRAN MAT (NEUT) % 74.3 % [facility] IMM GRAN % 0.20 % [facility] LYMPH % 19.6 % [facility] MONO % 5.7 % [facility] EOS % 0.1 % [facility] BASO % 0.1 % [facility] GRAN MAT x10^3(ANC) 6.25 1.99 - 6.95 [facility] 10*3/uL SERVICES IMM GRAN x10^3 <0.03 0.00 - 0.06 [facility] 10*3/uL SERVICES LYMPH x10^3 1.65 1.09 - 3.23 [facility] 10*3/uL SERVICES MONO x10^3 0.48 0.36 - 1.02 [facility] 10*3/uL SERVICES EOS x10^3 <0.03 (L) 0.06 - 0.53 [facility] 10*3/uL SERVICES BASO x10^3 <0.03 0.01 - 0.09 [facility] 10*3/uL SERVICES Specimen Blood - ARM, RIGHT Performing Organization Address [facility] Phone Number [facility] CLIA: [id number] [place] [address] [phone] [address] [facility] MAGNESIUM (11/21/2020 5:43 AM SODA MAKER) Pathologist Sig nature MAGNESIUM 1.9 1.7 - 2.4 mg/dL [facility] Specimen Blood - HAND, LEFT Performing Organization Address [facility]/Zipcode Phone Number [facility] CLIA: [id number] [place] [address] [phone] [address] [facility] BASIC METABOLIC PANEL (NA, K, CL, CO2, GLUCOSE, BUN, CREATININE, CA) (11/21/2020 5:43 AM SODA MAKER) NA 131 (L) 135 - 145 [facility] mmol/L SERVICES K 4.3 3.5 - 5.0 [facility] mmol/L SERVICES CL 100 98 - 108 mmol/L [facility] SERVICES CO2 TOTAL 27 23 - 31 mmol/L [facility] SERVICES AGAP 4 2 - 16 [facility] SERVICES BUN 7 7 - 23 mg/dL [facility] GLUCOSE 107 70 - 110 mg/dL [facility] CREATININE 0.15 (L) 0.60 - 1.25 [facility] mg/dL SERVICES CALCIUM 7.8 (L) 8.6 - 10.6 [facility] mg/dL SERVICES eGFR Calculation 754.9 mL/min/1.73m2 [facility] (Non- SERVICES [place]) eGFR Calculation 915.0 mL/min/1.73m2 [facility] () SERVICES Specimen Blood - HAND, LEFT Narrative Performed At Association of Glomerular Filtration Rate (GFR) and St aging [facility] of Kidney Disease* + + [...] in imaging tests) . Performing Organization Address City/[facility]/Zipcode Phone Number [facility] CLIA: [id number] [place] [address] [place] [address] MAGNESIUM (11/20/2020 3:36 AM SODA MAKER) Pathologist Sig nature MAGNESIUM 1.9 1.7 - 2.4 mg/dL [facility] Specimen Blood - ARM, LEFT Performing Organization Address [facility] [place] Phone Number [facility] CLIA: [id number] [place] [address] [place] [address] PHOSPHORUS (11/20/2020 3:36 AM SODA MAKER) Pathologist Sig nature PHOSPHORUS 4.4 2.5 - 5.0 mg/dL [facility] Specimen Blood - ARM, LEFT Performing Organization Address [facility] Phone Number [facility] CLIA: [id number] [place] [address] [place] [address] CBC WITH DIFF (11/20/2020 3:36 AM SODA MAKER) Pathologist Sig nature WBC 5.89 4.20 - 10.70 [facility] 10*3/L SERVICES RBC 3.58 (L) 4.26 - 5.52 [facility] 10*6/L SERVICES HGB 10.8 (L) 12.2 - 16.4 [facility] g/dL SERVICES HCT 32.4 (L) 38.4 - 49.3 % [facility] MCV 90.5 81.7 - 95.6 fL [facility] MCH 30.2 26.1 - 32.7 pg [facility] MCHC 33.3 31.2 - 35.0 [facility] g/dL SERVICES RDW-SD 45.7 38.5 - 51.6 fL [facility] SERVICES RDW-CV 16.4 (H) 12.1 - 15.4 % [facility] PLT 416 (H) 150 - 328 [facility] 10*3/L SERVICES MPV 10.6 9.8 - 13.0 fL [facility] NRBC/100 WBC 0.0 0.0 - 10.0 /100 [facility] WBCs SERVICES NRBC x10^3 <0.01 10*3/L [facility] SERVICES GRAN MAT (NEUT) % 71.1 % [facility] IMM GRAN % 0.20 % [facility] LYMPH % 22.9 % [facility] MONO % 5.4 % [facility] EOS % 0.2 % [facility] BASO % 0.2 % [facility] GRAN MAT x10^3(ANC) 4.19 1.99 - 6.95 [facility] 10*3/uL SERVICES IMM GRAN x10^3 <0.03 0.00 - 0.06 [facility] 10*3/uL SERVICES LYMPH x10^3 1.35 1.09 - 3.23 [facility] 10*3/uL SERVICES MONO x10^3 0.32 (L) 0.36 - 1.02 [facility] 10*3/uL SERVICES EOS x10^3 <0.03 (L) 0.06 - 0.53 [facility] 10*3/uL SERVICES BASO x10^3 <0.03 0.01 - 0.09 [facility] 10*3/uL SERVICES Specimen Blood - ARM, LEFT Performing Organization Address City/State/Zipcode Phone Number [facility] CLIA: [id number] [place], [place] [id number] [address] [place] [address] BASIC METABOLIC PANEL (NA, K, CL, CO2, GLUCOSE, BUN, CREATININE, CA) (11/20/2020 3:36 AM SODA MAKER) NA 135 135 - 145 [facility] mmol/L SERVICES K 4.4 3.5 - 5.0 [facility] mmol/L SERVICES CL 98 98 - 108 mmol/L [facility] SERVICES CO2 TOTAL 33 (H) 23 - 31 mmol/L [facility] SERVICES AGAP 4 2 - 16 [facility] SERVICES BUN 8 7 - 23 mg/dL [facility] SERVICES GLUCOSE 85 70 - 110 mg/dL [facility] SERVICES CREATININE 0.17 (L) 0.60 - 1.25 [facility] mg/dL SERVICES CALCIUM 7.9 (L) 8.6 - 10.6 [facility] mg/dL SERVICES eGFR Calculation 653.4 mL/min/1.73m2 [facility] (Non- SERVICES [place]) eGFR Calculation 791.9 mL/min/1.73m2 [facility] () SERVICES Specimen Blood - ARM, LEFT Narrative Performed At Association of Glomerular Filtration Rate (GFR) and St aging [facility] of Kidney Disease* + + [...] . Performing Organization Address City/State/Zipcode Phone Number [facility] CLIA: [id number] [place] [address] [place] [address] Electroencephalogram (EEG) - Duration of test: 20-60 mins (11/20/2020) Narrative Performed At Date and Time of Procedure: 11/20/2020, 9 :07:47-9:28:23 REPORT TECHNICAL SUMMARY: The EEG was recorded digitally. Electrodes were applie d using the International 10/20 System of electrode placement. Eye movements and rhythm strip ECG were monitored on separate channels o f the ongoing EEG recording. The occipital dominant rhythm consists of moderate amp litude 7 Hz activity. More anteriorly, similar as well as faster f requencies are present, including low amplitude 18-22 Hz activities i n the anterior leads. There is an excessive amount of 4 -8 Hz activity diffusely. Drowsiness and sleep do not reveal addit ional abnormalities. Photic stimulation does not elicit addit ional abnormalities. Hyperventilation is not employed as acti vation technique. No electrographic seizures or epileptifo rm abnormalities are seen. The ECG lead shows tachycardia (heart ra te 100-105 bpm). IMPRESSION: This study is abnormal due to: 1) mild diffuse slowing, suggestive of a mild diffuse disturbance in cerebral function but can also be relate d to sedating medications. 2) tachycardia, which would be better assessed by a mo re appropriate method of cardiac monitoring. No electrographic seizures or epileptiform abnormaliti es are seen. The absence of epileptiform abnormalities in one EEG does not necessarily rule out a diagnosis of epilepsy or the potential for epileptic seizures, however. The diagnostic sensitivity can be e nhanced by a repeat study, which would be appropriate if clinically indicated. __ Rima Cha MD Date of interpretation: 11/20/2020 MAGNESIUM (11/19/2020 7:00 PM SODA MAKER) Pathologist Sig nature MAGNESIUM 1.8 1.7 - 2.4 mg/dL [facility] Specimen Blood - ARM, LEFT Performing Organization Address City/State/Zipcode Phone Number [facility] CLIA: [id number] [place] [address] [place] [address] BASIC METABOLIC PANEL (NA, K, CL, CO2, GLUCOSE, BUN, CREATININE, CA) (11/19/2020 7:00 PM SODA MAKER) NA 136 135 - 145 [facility] mmol/L SERVICES K 3.9 3.5 - 5.0 [facility] mmol/L SERVICES CL 100 98 - 108 mmol/L [facility] SERVICES CO2 TOTAL 37 (H) 23 - 31 mmol/L [facility] SERVICES AGAP <1 (L) 2 - 16 [facility] SERVICES BUN 7 7 - 23 mg/dL [facility] GLUCOSE 108 70 - 110 mg/dL [facility] CREATININE 0.17 (L) 0.60 - 1.25 [facility] mg/dL SERVICES CALCIUM 7.6 (L) 8.6 - 10.6 [facility] mg/dL SERVICES eGFR Calculation 653.4 mL/min/1.73m2 [facility] (Non- SERVICES [place]) eGFR Calculation 791.9 mL/min/1.73m2 [facility] () SERVICES Specimen Blood - ARM, LEFT Narrative Performed At [employer] of Glomerular Filtration Rate (GFR) and St aging [facility] SERVICES of Kidney Disease* + + [...] . Performing Organization Address City/State/Zipcode Phone Number [facility] CLIA: [id number] [place] [address] [place] [address] CBC WITH DIFF (11/19/2020 7:00 PM [employer] [facility]) Pathologist Sig nature WBC 6.71 4.20 - 10.70 [facility] 10*3/L SERVICES RBC 3.16 (L) 4.26 - 5.52 [facility] 10*6/L SERVICES HGB 9.5 (L) 12.2 - 16.4 [facility] g/dL SERVICES HCT 28.2 (L) 38.4 - 49.3 % [facility] MCV 89.2 81.7 - 95.6 fL [facility] MCH 30.1 26.1 - 32.7 pg [facility] MCHC 33.7 31.2 - 35.0 [facility] g/dL SERVICES RDW-SD 44.3 38.5 - 51.6 fL [facility] RDW-CV 15.9 (H) 12.1 - 15.4 % [facility] PLT 399 (H) 150 - 328 [facility] 10*3/L SERVICES MPV 10.8 9.8 - 13.0 fL [facility] NRBC/100 WBC 0.0 0.0 - 10.0 /100 [facility] WBCs SERVICES NRBC x10^3 <0.01 10*3/L [facility] GRAN MAT (NEUT) % 71.0 % [facility] IMM GRAN % 0.30 % [facility] LYMPH % 20.9 % [facility] MONO % 7.7 % [facility] EOS % 0.1 % [facility] BASO % 0.0 % [facility] GRAN MAT x10^3(ANC) 4.76 1.99 - 6.95 [facility] 10*3/uL SERVICES IMM GRAN x10^3 <0.03 0.00 - 0.06 [facility] 10*3/uL SERVICES LYMPH x10^3 1.40 1.09 - 3.23 [facility] 10*3/uL SERVICES MONO x10^3 0.52 0.36 - 1.02 [facility] 10*3/uL SERVICES EOS x10^3 <0.03 (L) 0.06 - 0.53 [facility] 10*3/uL SERVICES BASO x10^3 <0.03 0.01 - 0.09 [facility] 10*3/uL SERVICES Specimen Blood - ARM, LEFT Performing Organization Address [facility] Phone Number [facility] CLIA: [id number] [place] [address] [place] [address] Lactic Acid Whole Blood (11/19/2020 6:59 PM SODA MAKER) Pathologist [facility] LACTIC ACID 1.20 0.50 - 2.20 mmol/L [facility]IC ES Specimen Blood Performing Organization Address [facility] Phone Number [facility] CLIA: [id number] [place] [address] [place] [address] POCT GLUCOSE (AUTOMATED) (11/19/2020 6:46 PM SODA MAKER) Pathologist Sig nature POCT GLU 119 (H) 70 - 110 mg/dL [facility] Specimen Blood Performing Organization Address City/[facility]/Zipcode Phone Number [facility] CLIA: [id number] [place] [address] [place] [address] MAGNESIUM (11/19/2020 3:54 AM SODA MAKER) Pathologist Sig nature MAGNESIUM 1.9 1.7 - 2.4 mg/dL [facility] Specimen Blood - LINE, VENOUS Performing Organization Address City/[facility]/Zipcode Phone Number [facility] CLIA: [id number] [place] [address] [place] [address] BASIC METABOLIC PANEL (NA, K, CL, CO2, GLUCOSE, BUN, CREATININE, CA) (11/19/2020 3:54 AM SODA MAKER) NA 134 (L) 135 - 145 [facility] mmol/L SERVICES K 3.9 3.5 - 5.0 [facility] mmol/L SERVICES CL 98 98 - 108 mmol/L [facility] CO2 TOTAL 33 (H) 23 - 31 mmol/L [facility] AGAP 3 2 - 16 [facility] BUN 5 (L) 7 - 23 mg/dL [facility] GLUCOSE 83 70 - 110 mg/dL [facility] CREATININE 0.16 (L) 0.60 - 1.25 [facility] mg/dL SERVICES CALCIUM 7.7 (L) 8.6 - 10.6 [facility] mg/dL SERVICES eGFR Calculation 700.7 mL/min/1.73m2 [facility] (Non- SERVICES [place]) eGFR Calculation 849.3 mL/min/1.73m2 [facility] () SERVICES Specimen Blood - LINE, VENOUS Narrative Performed At Association of Glomerular Filtration Rate (GFR) and St aging [facility] of Kidney Disease* + + [...] City/State/Zipcode Phone Number [facility] CLIA: [id number] [place] [address] [place] [address] CBC WITH DIFF (11/19/2020 3:54 AM SODA MAKER) Pathologist Sig nature WBC 5.91 4.20 - 10.70 [facility] 10*3/L SERVICES RBC 3.13 (L) 4.26 - 5.52 [facility] 10*6/L SERVICES HGB 9.2 (L) 12.2 - 16.4 [facility] g/dL SERVICES HCT 28.4 (L) 38.4 - 49.3 % [facility] MCV 90.7 81.7 - 95.6 fL [facility] MCH 29.4 26.1 - 32.7 pg [facility] MCHC 32.4 31.2 - 35.0 [facility] g/dL SERVICES RDW-SD 45.3 38.5 - 51.6 fL [facility] RDW-CV 16.0 (H) 12.1 - 15.4 % [facility] PLT 338 (H) 150 - 328 [facility] 10*3/L SERVICES MPV 10.8 9.8 - 13.0 fL [facility] NRBC/100 WBC 0.0 0.0 - 10.0 /100 [facility] WBCs SERVICES NRBC x10^3 <0.01 10*3/L [facility] GRAN MAT (NEUT) % 73.5 % [facility] IMM GRAN % 0.20 % [facility] LYMPH % 18.8 % [facility] MONO % 7.3 % [facility] EOS % 0.2 % [facility] BASO % 0.0 % [facility] GRAN MAT x10^3(ANC) 4.35 1.99 - 6.95 [facility] 10*3/uL SERVICES IMM GRAN x10^3 <0.03 0.00 - 0.06 [facility] 10*3/uL SERVICES LYMPH x10^3 1.11 1.09 - 3.23 [facility] 10*3/uL SERVICES MONO x10^3 0.43 0.36 - 1.02 [facility] 10*3/uL SERVICES EOS x10^3 <0.03 (L) 0.06 - 0.53 [facility] 10*3/uL SERVICES BASO x10^3 <0.03 0.01 - 0.09 [facility] 10*3/uL SERVICES Specimen Blood - LINE, VENOUS Performing Organization Address City/State/Zipcode Phone Number [facility] CLIA: [id number] [place] [address] [place] [address] HEPATIC FUNCTION PANEL ([id number]) (ALB,T.PRO,BILI T,BU/BC,ALT,AST,ALK PHOS) (11/18/2020 5:41 AM SODA MAKER) Pathologist Sig nature TOTAL BILI 0.4 0.1 - 1.1 mg/dL [facility] BILI UNCON 0.3 0.1 - 1.1 mg/dL [facility] BILI CONJ 0.0 0.0 - 0.3 mg/dL [facility] T PROTEIN 4.7 (L) 6.3 - 8.2 g/dL [facility] ALBUMIN 1.9 (L) 3.5 - 5.0 g/dL [facility] ALK PHOS 160 (H) 34 - 122 U/L [facility] ALTv 34 5 - 50 U/L [facility] AST(SGOT) 36 13 - 40 U/L [facility] Specimen Blood - LINE, VENOUS Performing Organization Address City/State/Zipcode Phone Number [facility] CLIA: [id number] [place] [address] [place] [address] PHOSPHORUS (11/18/2020 5:41 AM SODA MAKER) Pathologist Sig nature PHOSPHORUS 4.0 2.5 - 5.0 mg/dL [facility] Specimen Blood - LINE, VENOUS Performing Organization Address [facility] Phone Number [facility] CLIA: [id number] [place] [address] [place] [address] THYROID STIMULATING HORMONE (11/18/2020 5:41 AM SODA MAKER) Pathologist Sig nature TSH 4.75 (H) 0.45 - 4.70 mIU/L [facility] SERVICE S Specimen Blood - LINE, VENOUS Performing Organization Address [facility] Phone Number [facility] CLIA: [id number] [place] [address] [place] [address] BASIC METABOLIC PANEL (NA, K, CL, CO2, GLUCOSE, BUN, CREATININE, CA) (11/18/2020 5:41 AM SODA MAKER) Pathologist Sig nature NA 136 135 - 145 mmol/L [facility] K 3.9 3.5 - 5.0 mmol/L [facility] CL 101 98 - 108 mmol/L [facility] CO2 TOTAL 32 (H) 23 - 31 mmol/L [facility] AGAP 3 2 - 16 [facility] BUN 6 (L) 7 - 23 mg/dL [facility] GLUCOSE 92 70 - 110 mg/dL [facility] CREATININE <0.15 (L) 0.60 - 1.25 mg/dL [facility] SERVICE S CALCIUM 7.3 (L) 8.6 - 10.6 mg/dL [facility] Specimen Blood - LINE, VENOUS Narrative Performed At Association of Glomerular Filtration Rate (GFR) and St aging [facility] of Kidney Disease* + + [...] City/State/Zipcode Phone Number [facility] CLIA: [id number] [place] [address] [place] [address] CBC WITH DIFF (11/18/2020 5:41 AM SODA MAKER) Pathologist Sig nature WBC 5.12 4.20 - 10.70 [facility] 10*3/L SERVICES RBC 2.97 (L) 4.26 - 5.52 [facility] 10*6/L SERVICES HGB 8.9 (L) 12.2 - 16.4 [facility] g/dL SERVICES HCT 26.6 (L) 38.4 - 49.3 % [facility] MCV 89.6 81.7 - 95.6 fL [facility] MCH 30.0 26.1 - 32.7 pg [facility] MCHC 33.5 31.2 - 35.0 [facility] g/dL SERVICES RDW-SD 45.7 38.5 - 51.6 fL [facility] RDW-CV 15.9 (H) 12.1 - 15.4 % [facility] PLT 294 150 - 328 [facility] 10*3/L SERVICES MPV 10.9 9.8 - 13.0 fL [facility] NRBC/100 WBC 0.0 0.0 - 10.0 /100 [facility] WBCs SERVICES NRBC x10^3 <0.01 10*3/L [facility] GRAN MAT (NEUT) % 63.4 % [facility] IMM GRAN % 0.40 % [facility] LYMPH % 25.4 % [facility] MONO % 10.4 % [facility] EOS % 0.4 % [facility] BASO % 0.0 % [facility] GRAN MAT x10^3(ANC) 3.25 1.99 - 6.95 [facility] 10*3/uL SERVICES IMM GRAN x10^3 <0.03 0.00 - 0.06 [facility] 10*3/uL SERVICES LYMPH x10^3 1.30 1.09 - 3.23 [facility] 10*3/uL SERVICES MONO x10^3 0.53 0.36 - 1.02 [facility] 10*3/uL SERVICES EOS x10^3 <0.03 (L) 0.06 - 0.53 [facility] 10*3/uL SERVICES BASO x10^3 <0.03 0.01 - 0.09 [facility] 10*3/uL SERVICES Specimen Blood - LINE, VENOUS Performing Organization Address City/[facility]/Zipcode Phone Number [facility] CLIA: [id number] [place] [address] [place] [address] MAGNESIUM (11/18/2020 5:41 AM SODA MAKER) [facility] MAGNESIUM 1.5 (L) 1.7 - 2.4 mg/dL [facility] Specimen Blood - LINE, VENOUS Performing Organization Address [facility] Phone Number [facility] CLIA: [id number] [place] [address] [place] [address] CT HEAD W CONTRAST (11/17/2020 9:44 PM SODA MAKER) Specimen Impressions Performed At PACS/VR/DOSE No acute intracranial abnormality. Narrative Performed At This result has an attachment that is no t available. EXAM: CT HEAD W CONTRAST PACS/VR/DOSE HISTORY: Confusion, acute, unexplained New Left eye pa in, being Rx for fungemia and viremia CMV. TECHNIQUE: CT of the head was performed following intr avenous administration of 90 cc of Isovue. Sagittal and torres l reformats were generated. COMPARISON: None. FINDINGS: The ventricles and sulci are normal in caliber and con figuration. No hydrocephalus, midline shift or pathological extra-axi al fluid collection is present. The basal cisterns are unremarkable. Presence of contrast limits evaluation for subarachnoi d hemorrhage. No intraparenchymal hemorrhage or significant mass effect . No parenchymal attenuation abnormality. The hedrick-white matter differe ntiation is preserved. No abnormal intracranial enhancement. No gross abnormality identified within the visualized orbital soft tissues. The dural venous sinuses are patent. The mastoid air c ells and paranasal air sinuses are clear. The calvarium and central skull base are unremarkable. Procedure Note [facility], Radiant Results Inft User - 2020 10:27 PM SODA MAKER EXAM: CT HEAD W CONTRAST HISTORY: Confusion, acute, unexplained N ew Left eye pain, being Rx for fungemia and viremia CMV. TECHNIQUE: CT of the head was performed following intravenous administration of 90 cc of Isovue. Sagit kevin and coronal reformats were generated. COMPARISON: None. FINDINGS: The ventricles and sulci are normal in c aliber and configuration. No hydrocephalus, midline shift or patholog ical extra-axial fluid collection is present. The basal cisterns are unrem arkable. Presence of contrast limits evaluation f or subarachnoid hemorrhage. No intraparenchymal hemorrhage or significa nt mass effect. No parenchymal attenuation abnormality. The hedrick-white matter differentiation is preserved. No abnormal intracranial enha ncement. No gross abnormality identified within t he visualized orbital soft tissues. The dural venous sinuses are patent. The mastoid air cells and paranasal air sinuses are clear. The calvarium and central skull base are unremarkable. IMPRESSION No acute intracranial abnormality. Performing Organization Address City/State/Zipcode Phone Number PACS/VR/DOSE BASIC METABOLIC PANEL (NA, K, CL, CO2, GLUCOSE, BUN, CREATININE, CA) (11/17/2020 12:01 PM SODA MAKER) Pathologist Sig nature NA 134 (L) 135 - 145 mmol/L [facility] K 4.2 3.5 - 5.0 mmol/L [facility] CL 100 98 - 108 mmol/L [facility] CO2 TOTAL 34 (H) 23 - 31 mmol/L [facility] AGAP <1 (L) 2 - 16 [facility] BUN 7 7 - 23 mg/dL [facility] GLUCOSE 86 70 - 110 mg/dL [facility] CREATININE <0.15 (L) 0.60 - 1.25 mg/dL [facility] SERVICE S CALCIUM 7.2 (L) 8.6 - 10.6 mg/dL [facility] SERVICES Specimen Blood - ARM, RIGHT Narrative Performed At Association of Glomerular Filtration Rate (GFR) and St aging [facility] of Kidney Disease* + + [...] . Performing Organization Address City/State/Zipcode Phone Number [facility] CLIA: [id number] [place] [address] [place] [address] CBC WITH DIFF (11/17/2020 12:01 PM SODA MAKER) Pathologist Sig nature WBC 4.91 4.20 - 10.70 [facility] 10*3/L SERVICES RBC 3.58 (L) 4.26 - 5.52 [facility] 10*6/L SERVICES HGB 10.8 (L) 12.2 - 16.4 [facility] g/dL SERVICES HCT 31.6 (L) 38.4 - 49.3 % [facility] MCV 88.3 81.7 - 95.6 fL [facility] MCH 30.2 26.1 - 32.7 pg [facility] MCHC 34.2 31.2 - 35.0 [facility] g/dL SERVICES RDW-SD 43.7 38.5 - 51.6 fL [facility] RDW-CV 15.5 (H) 12.1 - 15.4 % [facility] PLT 300 150 - 328 [facility] 10*3/L SERVICES MPV 10.7 9.8 - 13.0 fL [facility] NRBC/100 WBC 0.0 0.0 - 10.0 /100 [facility] WBCs SERVICES NRBC x10^3 <0.01 10*3/L [facility] GRAN MAT (NEUT) % 58.2 % [facility] IMM GRAN % 0.20 % [facility] LYMPH % 31.0 % [facility] MONO % 10.2 % [facility] EOS % 0.2 % [facility] BASO % 0.2 % [facility] GRAN MAT x10^3(ANC) 2.86 1.99 - 6.95 [facility] 10*3/uL SERVICES IMM GRAN x10^3 <0.03 0.00 - 0.06 [facility] 10*3/uL SERVICES LYMPH x10^3 1.52 1.09 - 3.23 [facility] 10*3/uL SERVICES MONO x10^3 0.50 0.36 - 1.02 [facility] 10*3/uL SERVICES EOS x10^3 <0.03 (L) 0.06 - 0.53 [facility] 10*3/uL SERVICES BASO x10^3 <0.03 0.01 - 0.09 [facility] 10*3/uL SERVICES Specimen Blood - ARM, RIGHT Performing Organization Address City/State/Zipcode Phone Number [facility] CLIA: [id number] [place] [address] [place] [address] CMV BY PCR (11/17/2020 11:50 AM SODA MAKER) Specimen Tested Plasma [facility] CMV PCR - IU/mL Comment: See [facility] Comment/Narrative SERVICES CMV PCR Detected, not See Comment [facility] Quantifiable (A) IU/mL SERVICES Specimen Blood - ARM, LEFT Narrative Performed At Test Information: Cytomegalovirus (CMV) DNA, Quantitation. [facility] SERVICES The quantitative range of this [...] and its performance characteristics determin ed by [facility] Clinical Microbiology Laboratory. It has not been cleared or approved by the U.S. Food and Drug Administration; however, the FDA has determined that s uch clearance or approval is not necessary. This test is u sed for clinical purposes. It should not be regarded as investigational or for research. This laboratory is certified under the Clinical Laboratory Improvement Amendments of 1988 (CLIA-88) as qualified to perform h [facility] complexity clinical laboratory testing. Performing Organization Address City/State/Zipcode Phone Number [facility] CLIA: [id number] [place] [address] [place] [address] Prepare Packed RBC (in units), 1 Units (11/16/2020 4:40 PM SODA MAKER) Cross Match Result Compatible LAB ISBT Blood Type Code 9500 LAB Unit Blood Type O Neg LAB Unit Number [id number] LAB Blood Expiration Date & [id number] LAB Time Status Information Issued LAB Product Identification Red Blood Cells LAB Product Code [id number] LAB Comment: Performed at [facility] Laboratory Services - [place] [address] Toll Free: [phone] CLIA No. [id number] Specimen Performing Organization Address City/State/Zipcode Phone Number [facility] LAB Type and Screen - ONCE ROBERTO (11/16/2020 2:55 PM SODA MAKER) Pathologist Sig nature ABO & RH AB POSITIVE LAB Comment: Performed at [facility] Laboratory Services - [place] [address] Toll Free: [phone] CLIA No. [id number] IAT Negative LAB Comment: Performed at [facility] Laboratory Services - [address], [place] [address] Toll Free: [phone] CLIA No. [id number] Specimen VENOUS Performing Organization Address City/State/Zipcode Phone Number [facility] LAB PHOSPHORUS (11/16/2020 7:03 AM SODA MAKER) Pathologist Sig nature PHOSPHORUS 3.4 2.5 - 5.0 mg/dL [facility] SERVICES Specimen Blood - ARM, RIGHT Performing Organization Address City/State/Zipcode Phone Number [facility] CLIA: [id number] [place] [address] [place] [address] BASIC METABOLIC PANEL (NA, K, CL, CO2, GLUCOSE, BUN, CREATININE, CA) (11/16/2020 7:03 AM SODA MAKER) NA 133 (L) 135 - 145 [facility] mmol/L SERVICES K 4.0 3.5 - 5.0 [facility] mmol/L SERVICES CL 101 98 - 108 mmol/L [facility] SERVICES CO2 TOTAL 32 (H) 23 - 31 mmol/L [facility] SERVICES AGAP <1 (L) 2 - 16 [facility] SERVICES BUN 7 7 - 23 mg/dL [facility] SERVICES GLUCOSE 105 70 - 110 mg/dL [facility] SERVICES CREATININE 0.17 (L) 0.60 - 1.25 [facility] mg/dL SERVICES CALCIUM 6.8 (L) 8.6 - 10.6 [facility] mg/dL SERVICES eGFR Calculation 653.4 mL/min/1.73m2 [facility] (Non- SERVICES [place]) eGFR Calculation 791.9 mL/min/1.73m2 [facility] () SERVICES Specimen Blood - ARM, RIGHT Narrative Performed At [facility] of Glomerular Filtration Rate (GFR) and St aging [facility] SERVICES of Kidney Disease* + + [...] City/State/Zipcode Phone Number [facility] CLIA: [id number] [place] [address] [place] [address] CBC WITH DIFF (11/16/2020 7:03 AM SODA MAKER) WBC 5.91 4.20 - 10.70 [facility] 10*3/L SERVICES RBC 2.28 (L) 4.26 - 5.52 [facility] 10*6/L SERVICES HGB 6.8 (L) 12.2 - 16.4 [facility] g/dL SERVICES HCT 20.1 (L) 38.4 - 49.3 % [facility] MCV 88.2 81.7 - 95.6 [facility] fL SERVICES MCH 29.8 26.1 - 32.7 [facility] pg SERVICES MCHC 33.8 31.2 - 35.0 [facility] g/dL SERVICES RDW-SD 43.7 38.5 - 51.6 [facility] fL SERVICES RDW-CV 15.1 12.1 - 15.4 % [facility] PLT 231 150 - 328 [facility] 10*3/L SERVICES MPV 11.3 9.8 - 13.0 fL [facility] IPF % 2.9Comment: Platelet 1.2 - 10.7 % [facility] count measured by SERVICES fluorescence method. NRBC/100 WBC 0.3 0.0 - 10.0 [facility] /100 WBCs SERVICES NRBC x10^3 0.02 10*3/L [facility] GRAN MAT (NEUT) % 69.2 % [facility] IMM GRAN % 0.70 % [facility] LYMPH % 22.8 % [facility] MONO % 6.8 % [facility] EOS % 0.3 % [facility] BASO % 0.2 % [facility] GRAN MAT 4.09 1.99 - 6.95 [facility] x10^3(ANC) 10*3/uL SERVICES IMM GRAN x10^3 0.04 0.00 - 0.06 [facility] 10*3/uL SERVICES LYMPH x10^3 1.35 1.09 - 3.23 [facility] 10*3/uL SERVICES MONO x10^3 0.40 0.36 - 1.02 [facility] 10*3/uL SERVICES EOS x10^3 <0.03 (L) 0.06 - 0.53 [facility] 10*3/uL SERVICES BASO x10^3 <0.03 0.01 - 0.09 [facility] 10*3/uL SERVICES Specimen Blood - ARM, RIGHT Performing Organization Address [facility] Phone Number [facility] CLIA: [id number] [place], [place] [id number] [address] [facility] MAGNESIUM (11/16/2020 7:03 AM SODA MAKER) Pathologist Sig nature MAGNESIUM 1.6 (L) 1.7 - 2.4 mg/dL [facility] Specimen Blood - ARM, RIGHT Performing Organization Address [facility] Phone Number [facility] CLIA: [id number] [place] [address] [place] [address] POCT GLUCOSE (AUTOMATED) (11/16/2020 4:56 AM SODA MAKER) Pathologist Sig nature POCT GLU 123 (H) 70 - 110 mg/dL [facility] Specimen Blood Performing Organization Address [facility] Phone Number [facility] CLIA: [id number] [place] [address] [place] [address] POCT GLUCOSE (AUTOMATED) (11/15/2020 8:24 AM SODA MAKER) Pathologist Sig nature POCT GLU 121 (H) 70 - 110 mg/dL [facility] Specimen Blood Performing Organization Address [facility] [facility] [place] Phone Number [facility] CLIA: [id number] [place] [address] [place] [address] BASIC METABOLIC PANEL (NA, K, CL, CO2, GLUCOSE, BUN, CREATININE, CA) (11/15/2020 4:25 AM SODA MAKER) NA 131 (L) 135 - 145 [facility] mmol/L SERVICES K 4.2 3.5 - 5.0 [facility] mmol/L SERVICES CL 100 98 - 108 mmol/L [facility] SERVICES CO2 TOTAL 31 23 - 31 mmol/L [facility] SERVICES AGAP <1 (L) 2 - 16 [facility] SERVICES BUN 8 7 - 23 mg/dL [facility] SERVICES GLUCOSE 84 70 - 110 mg/dL [facility] SERVICES CREATININE 0.17 (L) 0.60 - 1.25 [facility] mg/dL SERVICES CALCIUM 7.1 (L) 8.6 - 10.6 [facility] mg/dL SERVICES eGFR Calculation 653.4 mL/min/1.73m2 [facility] (Non- SERVICES [place]) eGFR Calculation 791.9 mL/min/1.73m2 [facility] () SERVICES Specimen Blood - LINE, VENOUS Narrative Performed At Association of Glomerular Filtration Rate (GFR) and St aging [facility] SERVICES of Kidney Disease* + + +------- ------ + | GFR (mL/min/1.73 m2) | With Kidney Damage | [facility] Kidney Damage + + +------- ------ [...] . Performing Organization Address City/State/Zipcode Phone Number [facility] CLIA: [id number] [place], [place] [id number] [address] [place] [address] Blvd CBC WITH DIFF (11/15/2020 4:25 AM SODA MAKER) Pathologist Sig nature WBC 5.89 4.20 - 10.70 [facility] 10*3/L SERVICES RBC 2.54 (L) 4.26 - 5.52 [facility] 10*6/L SERVICES HGB 7.6 (L) 12.2 - 16.4 [facility] g/dL SERVICES HCT 22.3 (L) 38.4 - 49.3 % [facility] SERVICES MCV 87.8 81.7 - 95.6 fL [facility] MCH 29.9 26.1 - 32.7 pg [facility] MCHC 34.1 31.2 - 35.0 [facility] g/dL SERVICES RDW-SD 43.0 38.5 - 51.6 fL [facility] SERVICES RDW-CV 14.9 12.1 - 15.4 % [facility] PLT 231 150 - 328 [facility] 10*3/L SERVICES MPV 10.8 9.8 - 13.0 fL [facility] SERVICES NRBC/100 WBC 0.0 0.0 - 10.0 /100 [facility] WBCs SERVICES NRBC x10^3 <0.01 10*3/L [facility] SERVICES GRAN MAT (NEUT) % 57.5 % [facility] IMM GRAN % 0.50 % [facility] LYMPH % 31.1 % [facility] MONO % 10.7 % [facility] EOS % 0.2 % [facility] BASO % 0.0 % [facility] SERVICES GRAN MAT x10^3(ANC) 3.39 1.99 - 6.95 [facility] 10*3/uL SERVICES IMM GRAN x10^3 0.03 0.00 - 0.06 [facility] 10*3/uL SERVICES LYMPH x10^3 1.83 1.09 - 3.23 [facility] 10*3/uL SERVICES MONO x10^3 0.63 0.36 - 1.02 [facility] 10*3/uL SERVICES EOS x10^3 <0.03 (L) 0.06 - 0.53 [facility] 10*3/uL SERVICES BASO x10^3 <0.03 0.01 - 0.09 [facility] 10*3/uL SERVICES Specimen Blood - LINE, VENOUS Performing Organization Address City/State/Zipcode Phone Number [facility] CLIA: [id number] [place] [address] [place] [address] MAGNESIUM (11/15/2020 4:25 AM SODA MAKER) Pathologist Sig nature MAGNESIUM 1.6 (L) 1.7 - 2.4 mg/dL [facility] SERVICES Specimen Blood - LINE, VENOUS Performing Organization Address [facility] [place] Phone Number [facility] CLIA: [id number] [place] [address] [place] [address] HEPATIC FUNCTION PANEL ([id number]) (ALB,T.PRO,BILI T,BU/BC,ALT,AST,ALK PHOS) (11/15/2020 4:25 AM SODA MAKER) Pathologist Sig nature TOTAL BILI 0.4 0.1 - 1.1 mg/dL [facility] SERVICES BILI UNCON 0.3 0.1 - 1.1 mg/dL [facility] SERVICES BILI CONJ 0.0 0.0 - 0.3 mg/dL [facility] SERVICES T PROTEIN 4.4 (L) 6.3 - 8.2 g/dL [facility] SERVICES ALBUMIN 1.8 (L) 3.5 - 5.0 g/dL [facility] SERVICES ALK PHOS 161 (H) 34 - 122 U/L [facility] SERVICES ALTv 35 5 - 50 U/L [facility] SERVICES AST(SGOT) 31 13 - 40 U/L [facility] SERVICES Specimen Blood - LINE, VENOUS Performing Organization Address [facility] [place] Phone Number [facility] CLIA: [id number] [place] [address] [place] [address] PHOSPHORUS (11/15/2020 4:25 AM SODA MAKER) Pathologist Sig nature PHOSPHORUS 4.1 2.5 - 5.0 mg/dL [facility] SERVICES Specimen Blood - LINE, VENOUS Performing Organization Address [facility] [place] Phone Number [facility] CLIA: [id number] [place] [address] [place] [address] POCT GLUCOSE (AUTOMATED) (11/15/2020 4:00 AM SODA MAKER) Pathologist Sig nature POCT GLU 116 (H) 70 - 110 mg/dL [facility] Specimen Blood Performing Organization Address [facility] [place] Phone Number [facility] CLIA: [id number] [place] [address] [phone] 301 [facility] POCT GLUCOSE (AUTOMATED) (11/15/2020 12:20 AM SODA MAKER) Pathologist Sig nature POCT GLU 97 70 - 110 mg/dL [facility] Specimen Blood Performing Organization Address [facility] [place] Phone Number [facility] CLIA: [id number] [place] [address] [phone] [address] [employer] [place] POCT GLUCOSE (AUTOMATED) (11/14/2020 9:01 PM SODA MAKER) Pathologist Sig nature POCT GLU 120 (H) 70 - 110 mg/dL [facility] Specimen Blood Performing Organization Address [facility] Phone Number [facility] CLIA: [id number] [place] [address] [phone] 301 [facility] POCT GLUCOSE (AUTOMATED) (11/14/2020 4:30 PM SODA MAKER) Pathologist Sig nature POCT GLU 116 (H) 70 - 110 mg/dL [facility] Specimen Blood Performing Organization Address [facility] Phone Number [facility] CLIA: [id number] [place] [address] [phone] 301 [facility] POCT GLUCOSE (AUTOMATED) (11/14/2020 12:36 PM SODA MAKER) Pathologist Sig nature POCT GLU 105 70 - 110 mg/dL [facility] Specimen Blood Performing Organization Address [facility] Phone Number [facility] CLIA: [id number] [place] [address] [phone] 301 [facility] BLOOD CULTURE SCREEN (11/14/2020 12:31 PM SODA MAKER) Blood No organisms isolated No growth [facility] Culture-Aerobic Comment: SERVICES Previous preliminary verifie d result was Culture In Progress on 11/14/2020 at 1701 SODA MAKER Previous preliminary verifie d result was No growth at 24 hours on 11/15/2020 at 1401 SODA MAKER Previous preliminary verifie d result was No growth at 48 hours on 11/16/2020 at 1401 SODA MAKER Previous preliminary verifie d result was No growth at 72 hours on 11/17/2020 at 1402 SODA MAKER Blood No organisms isolated No growth [facility] Culture-Anaerobic Comment: SERVICES Previous preliminary verifie d result was Culture In Progress on 11/14/2020 at 1701 SODA MAKER Previous preliminary verifie d result was No growth at 24 hours on 11/15/2020 at 1401 SODA MAKER Previous preliminary verifie d result was No growth at 48 hours on 11/16/2020 at 1401 SODA MAKER Previous preliminary verifie d result was No growth at 72 hours on 11/17/2020 at 1402 SODA MAKER Specimen Blood - HAND, LEFT Performing Organization Address [facility] [place] Phone Number [facility] CLIA: [id number] [place] [address] [place] [address] BLOOD CULTURE SCREEN (11/14/2020 11:50 AM SODA MAKER) Blood No organisms isolated No growth [facility] Culture-Aerobic Comment: SERVICES Previous preliminary verifie d result was Culture In Progress on 11/14/2020 at 1701 SODA MAKER Previous preliminary verifie d result was No growth at 24 hours on 11/15/2020 at 1401 SODA MAKER Previous preliminary verifie d result was No growth at 48 hours on 11/16/2020 at 1401 SODA MAKER Previous preliminary verifie d result was No growth at 72 hours on 11/17/2020 at 1402 SODA MAKER Blood No organisms isolated No growth [facility] Culture-Anaerobic Comment: SERVICES Previous preliminary verifie d result was Culture In Progress on 11/14/2020 at 1701 SODA MAKER Previous preliminary verifie d result was No growth at 24 hours on 11/15/2020 at 1401 SODA MAKER Previous preliminary verifie d result was No growth at 48 hours on 11/16/2020 at 1401 SODA MAKER Previous preliminary verifie d result was No growth at 72 hours on 11/17/2020 at 1402 SODA MAKER Specimen Blood - ARM, RIGHT Performing Organization Address City/[facility] [place] Phone Number [facility] CLIA: [id number] [place] [address] [address] [facility] POCT GLUCOSE (AUTOMATED) (11/14/2020 8:35 AM SODA MAKER) Pathologist Sig nature POCT GLU 116 (H) 70 - 110 mg/dL [facility] Specimen Blood Performing Organization Address [facility] [place] Phone Number [facility] CLIA: [id number] [place] [address] [place] [address] POCT GLUCOSE (AUTOMATED) (11/14/2020 3:49 AM SODA MAKER) Pathologist Sig nature POCT GLU 138 (H) 70 - 110 mg/dL [facility] Specimen Blood Performing Organization Address [facility] [place] Phone Number [facility] CLIA: [id number] [place] [address] [place] [address] BASIC METABOLIC PANEL (NA, K, CL, CO2, GLUCOSE, BUN, CREATININE, CA) (11/14/2020 3:33 AM SODA MAKER) NA 133 (L) 135 - 145 [facility] mmol/L SERVICES K 3.7 3.5 - 5.0 [facility] mmol/L SERVICES CL 99 98 - 108 mmol/L [facility] SERVICES CO2 TOTAL 33 (H) 23 - 31 mmol/L [facility] SERVICES AGAP 1 (L) 2 - 16 [facility] SERVICES BUN 6 (L) 7 - 23 mg/dL [facility] SERVICES GLUCOSE 97 70 - 110 mg/dL [facility] SERVICES CREATININE 0.16 (L) 0.60 - 1.25 [facility] mg/dL SERVICES CALCIUM 7.1 (L) 8.6 - 10.6 [facility] mg/dL SERVICES eGFR Calculation 700.7 mL/min/1.73m2 [facility] (Non- SERVICES [place]) eGFR Calculation 849.3 mL/min/1.73m2 [facility] () SERVICES Specimen Blood - ARM, RIGHT Narrative Performed At [facility] of Glomerular Filtration Rate (GFR) and St aging [facility] SERVICES of Kidney Disease* + + [...] . Performing Organization Address City/State/Zipcode Phone Number [facility] CLIA: [id number] [place] [address] [place] [address] CBC WITH DIFF (11/14/2020 3:33 AM SODA MAKER) WBC 5.73 4.20 - 10.70 [facility] 10*3/L SERVICES RBC 2.94 (L) 4.26 - 5.52 [facility] 10*6/L SERVICES HGB 8.5 (L) 12.2 - 16.4 [facility] g/dL SERVICES HCT 25.4 (L) 38.4 - 49.3 % [facility] MCV 86.4 81.7 - 95.6 fL [facility] SERVICES MCH 28.9 26.1 - 32.7 pg [facility] MCHC 33.5 31.2 - 35.0 [facility] g/dL SERVICES RDW-SD 42.0 38.5 - 51.6 fL [facility] RDW-CV 14.2 12.1 - 15.4 % [facility] PLT 242 150 - 328 [facility] 10*3/L SERVICES MPV 10.8 9.8 - 13.0 fL [facility] SERVICES NRBC/100 WBC 0.0 0.0 - 10.0 /100 [facility] WBCs SERVICES NRBC x10^3 <0.01 10*3/L [facility] SERVICES GRAN MAT (NEUT) % 73.8 % [facility] IMM GRAN % 0.20 % [facility] LYMPH % 16.9 % [facility] MONO % 8.9 % [facility] EOS % 0.2 % [facility] BASO % 0.0 % [facility] GRAN MAT x10^3(ANC) 4.23 1.99 - 6.95 [facility] 10*3/uL SERVICES IMM GRAN x10^3 <0.03 0.00 - 0.06 [facility] 10*3/uL SERVICES LYMPH x10^3 0.97 (L) 1.09 - 3.23 [facility] 10*3/uL SERVICES MONO x10^3 0.51 0.36 - 1.02 [facility] 10*3/uL SERVICES EOS x10^3 <0.03 (L) 0.06 - 0.53 [facility] 10*3/uL SERVICES BASO x10^3 <0.03 0.01 - 0.09 [facility] 10*3/uL SERVICES TOXIC CHANGES Present (A) [facility] SERVICES Specimen Blood - ARM, RIGHT Performing Organization Address City/[facility] Phone Number [facility] CLIA: [id number] [place] [address] [place] [address] MAGNESIUM (11/14/2020 3:33 AM SODA MAKER) Pathologist Sig [facility] MAGNESIUM 1.7 1.7 - 2.4 mg/dL [facility] SERVICES Specimen Blood - ARM, RIGHT Performing Organization Address [facility] [place] Phone Number [facility] CLIA: [id number] [place] [address] [place] [address] HEPATIC FUNCTION PANEL ([id number]) (ALB,T.PRO,BILI T,BU/BC,ALT,AST,ALK PHOS) (11/14/2020 3:33 AM SODA MAKER) Pathologist Sig nature TOTAL BILI 0.5 0.1 - 1.1 mg/dL [facility] SERVICES BILI UNCON 0.4 0.1 - 1.1 mg/dL [facility] SERVICES BILI CONJ 0.0 0.0 - 0.3 mg/dL [facility] SERVICES T PROTEIN 4.6 (L) 6.3 - 8.2 g/dL [facility] SERVICES ALBUMIN 1.8 (L) 3.5 - 5.0 g/dL [facility] SERVICES ALK PHOS 179 (H) 34 - 122 U/L [facility] SERVICES ALTv 41 5 - 50 U/L [facility] SERVICES AST(SGOT) 41 (H) 13 - 40 U/L [facility] SERVICES Specimen Blood - ARM, RIGHT Performing Organization Address City/[facility] [place]/Zipcode Phone Number [facility] CLIA: [id number] [place] [address] [place] [address] PHOSPHORUS (11/14/2020 3:33 AM SODA MAKER) Pathologist Sig nature PHOSPHORUS 4.0 2.5 - 5.0 mg/dL [facility] SERVICES Specimen Blood - ARM, RIGHT Performing Organization Address [facility] [place] Phone Number [facility] CLIA: [id number] [place] [address] [place] [address] POCT GLUCOSE (AUTOMATED) (11/14/2020 12:12 AM SODA MAKER) Pathologist Sig nature POCT GLU 135 (H) 70 - 110 mg/dL [facility] Specimen Blood Performing Organization Address [facility] [place] Phone Number [facility] CLIA: [id number] [place] [address] [place] [address] CMV BY PCR (11/13/2020 4:12 PM SODA MAKER) Pathologist Sig nature Specimen Tested Urine [facility] CMV PCR - log IU/mL <2.5 <2.5 log IU/mL [facility] SERVICES CMV PCR - IU/mL <300 <300 IU/mL [facility] SERVICES CMV PCR - log <2.7 <2.7 log [facility] copies/mL copies/mL SERVICES CMV PCR - copies/mL <516 <516 copies/mL [facility] SERVICES Specimen Urine - URINE, CLEAN CATCH Narrative Performed At Test Information: Cytomegalovirus (CMV) DNA, Quantitation. [facility] SERVICES The quantitative range of this [...] and its performance characteristics determin ed by [facility] Clinical Microbiology Laboratory. It has not been cleared or approved by the U.S. Food and Drug Administration; however, the FDA has determined that s [facility] clearance or approval is not necessary. This test is [facility] for clinical purposes. It should not be regarded as investigational or for research. This laboratory is certified under the Clinical Laboratory Improvement Amendments of 1988 (CLIA-88) as qualified to perform h igh complexity clinical laboratory testing. Performing Organization Address City/[facility] [place] Phone Number [facility] CLIA: [id number] [place] [address] [place] [address] POCT GLUCOSE (AUTOMATED) (11/13/2020 1:55 PM SODA MAKER) [facility] POCT GLU 111 (H) 70 - 110 mg/dL [facility] Specimen Blood Performing Organization Address [facility] [place] Phone Number [facility] CLIA: [id number] [place] [address] [place] [address] [place] POCT GLUCOSE (AUTOMATED) (11/13/2020 7:54 AM SODA MAKER) Pathologist Sig nature POCT GLU 94 70 - 110 mg/dL [facility] Specimen Blood Performing Organization Address City/[facility] [place] Phone Number [facility] CLIA: [id number] [place] [address] [place] [address] POCT GLUCOSE (AUTOMATED) (11/13/2020 4:41 AM SODA MAKER) Pathologist Sig nature POCT GLU 80 70 - 110 mg/dL [facility] Specimen Blood Performing Organization Address City/[facility] [place]/Zipcode Phone Number [facility] CLIA: [id number] [place] [address] [place] [address] MAGNESIUM (11/13/2020 2:50 AM SODA MAKER) Pathologist Sig nature MAGNESIUM 1.6 (L) 1.7 - 2.4 mg/dL [facility] SERVICES Specimen Blood - LINE, VENOUS Performing Organization Address City/[facility] Phone Number [facility] CLIA: [id number] [place] [address] [place] [address] BASIC METABOLIC PANEL (NA, K, CL, CO2, GLUCOSE, BUN, CREATININE, CA) (11/13/2020 2:50 AM SODA MAKER) NA 135 135 - 145 [facility] mmol/L SERVICES K 4.2 3.5 - 5.0 [facility] mmol/L SERVICES CL 104 98 - 108 mmol/L [facility] SERVICES CO2 TOTAL 34 (H) 23 - 31 mmol/L [facility] SERVICES AGAP <1 (L) 2 - 16 [facility] SERVICES BUN 6 (L) 7 - 23 mg/dL [facility] SERVICES GLUCOSE 89 70 - 110 mg/dL [facility] SERVICES CREATININE 0.16 (L) 0.60 - 1.25 [facility] mg/dL SERVICES CALCIUM 7.0 (L) 8.6 - 10.6 [facility] mg/dL SERVICES eGFR Calculation 700.7 mL/min/1.73m2 [facility] (Non- SERVICES [place]) eGFR Calculation 849.3 mL/min/1.73m2 [facility] () SERVICES Specimen Blood - LINE, VENOUS Narrative Performed At [facility] of Glomerular Filtration Rate (GFR) and St aging [facility] SERVICES of Kidney Disease* + + [...] . Performing Organization Address City/State/Zipcode Phone Number [facility] CLIA: [id number] [place] [address] [place] [address] CBC WITH DIFF (11/13/2020 2:50 AM SODA MAKER) [facility] WBC 6.31 4.20 - 10.70 [facility] 10*3/L SERVICES RBC 2.87 (L) 4.26 - 5.52 [facility] 10*6/L SERVICES HGB 8.5 (L) 12.2 - 16.4 [facility] g/dL SERVICES HCT 25.3 (L) 38.4 - 49.3 % [facility] SERVICES MCV 88.2 81.7 - 95.6 fL [facility] SERVICES MCH 29.6 26.1 - 32.7 pg [facility] SERVICES MCHC 33.6 31.2 - 35.0 [facility] g/dL SERVICES RDW-SD 42.2 38.5 - 51.6 fL [facility] SERVICES RDW-CV 13.6 12.1 - 15.4 % [facility]ORY SERVICES PLT 222 150 - 328 [facility] 10*3/L SERVICES MPV 11.4 9.8 - 13.0 fL [facility] SERVICES NRBC/100 WBC 0.0 0.0 - 10.0 /100 [facility] WBCs SERVICES NRBC x10^3 <0.01 10*3/L [facility] GRAN MAT (NEUT) % 65.8 % [facility] IMM GRAN % 0.20 % [facility] LYMPH % 27.3 % [facility] MONO % 6.3 % [facility] EOS % 0.2 % [facility] BASO % 0.2 % [facility] GRAN MAT x10^3(ANC) 4.16 1.99 - 6.95 [facility] 10*3/uL SERVICES IMM GRAN x10^3 <0.03 0.00 - 0.06 [facility] 10*3/uL SERVICES LYMPH x10^3 1.72 1.09 - 3.23 [facility] 10*3/uL [facility] MONO x10^3 0.40 0.36 - 1.02 [facility] 10*3/uL [facility] EOS x10^3 <0.03 (L) 0.06 - 0.53 [facility] 10*3/uL [facility] BASO x10^3 <0.03 0.01 - 0.09 [facility] 10*3/uL SERVICES Specimen Blood - LINE, VENOUS Performing Organization Address City/State/Zipcode Phone Number [facility] CLIA: [id number] [place], [place] [id number] [address] [place] [address] HEPATIC FUNCTION PANEL (27881) (ALB,T.PRO,BILI T,BU/BC,ALT,AST,ALK PHOS) (11/13/2020 2:50 AM SODA MAKER) Pathologist Sig nature TOTAL BILI 0.4 0.1 - 1.1 mg/dL [facility] BILI UNCON 0.4 0.1 - 1.1 mg/dL [facility] [facility] BILI CONJ 0.0 0.0 - 0.3 mg/dL [facility] T PROTEIN 4.3 (L) 6.3 - 8.2 g/dL [facility] ALBUMIN 1.6 (L) 3.5 - 5.0 g/dL [facility] ALK PHOS 168 (H) 34 - 122 U/L [facility] ALTv 38 5 - 50 U/L [facility] AST(SGOT) 38 13 - 40 U/L [facility] Specimen Blood - LINE, VENOUS Performing Organization Address [facility] Phone Number [facility] CLIA: [id number] [place] [address] [phone] 301 [facility] PHOSPHORUS (11/13/2020 2:50 AM SODA MAKER) Pathologist Sig mckenna PHOSPHORUS 3.8 2.5 - 5.0 mg/dL [facility] Specimen Blood - LINE, VENOUS Performing Organization Address City/[facility] Phone Number [facility] CLIA: [id number] [place] [address] [phone] 301 [facility] POCT GLUCOSE (AUTOMATED) (11/13/2020 12:38 AM SODA MAKER) Pathologist Sig nature POCT GLU 105 70 - 110 mg/dL [facility] Specimen Blood Performing Organization Address [facility] Phone Number [facility] CLIA: [id number] [place] [address] [place] [address] POCT GLUCOSE (AUTOMATED) (11/12/2020 9:32 PM SODA MAKER) Pathologist [facility] POCT GLU 117 (H) 70 - 110 mg/dL [facility] Specimen Blood Performing Organization Address [facility] Phone Number [facility] CLIA: [id number] [place] [address] [place] [address] CBC WITH DIFF (11/12/2020 6:28 PM SODA MAKER) Pathologist Sig nature WBC 5.63 4.20 - 10.70 [facility] 10*3/L SERVICES RBC 2.67 (L) 4.26 - 5.52 [facility] 10*6/L SERVICES HGB 7.8 (L) 12.2 - 16.4 [facility] g/dL SERVICES HCT 23.3 (L) 38.4 - 49.3 % [facility] MCV 87.3 81.7 - 95.6 fL [facility] MCH 29.2 26.1 - 32.7 pg [facility] MCHC 33.5 31.2 - 35.0 [facility] g/dL SERVICES RDW-SD 42.5 38.5 - 51.6 fL [facility] RDW-CV 13.6 12.1 - 15.4 % [facility] PLT 196 150 - 328 [facility] 10*3/L SERVICES MPV 11.0 9.8 - 13.0 fL [facility] NRBC/100 WBC 0.4 0.0 - 10.0 /100 [facility] WBCs SERVICES NRBC x10^3 0.02 10*3/L [facility] GRAN MAT (NEUT) % 65.7 % [facility] IMM GRAN % 0.40 % [facility] LYMPH % 25.9 % [facility] MONO % 7.8 % [facility] EOS % 0.2 % [facility] BASO % 0.0 % [facility] GRAN MAT x10^3(ANC) 3.70 1.99 - 6.95 [facility] 10*3/uL SERVICES IMM GRAN x10^3 <0.03 0.00 - 0.06 [facility] 10*3/uL SERVICES LYMPH x10^3 1.46 1.09 - 3.23 [facility] 10*3/uL SERVICES MONO x10^3 0.44 0.36 - 1.02 [facility] 10*3/uL SERVICES EOS x10^3 <0.03 (L) 0.06 - 0.53 [facility] 10*3/uL SERVICES BASO x10^3 <0.03 0.01 - 0.09 [facility] 10*3/uL SERVICES Specimen Blood - LINE, VENOUS Performing Organization Address City/State/Zipcode Phone Number [facility] CLIA: [id number] [place] [address] [place] [address] GRAM POSITIVE BLOOD PATHOGENS DNA PROBE-AEROBIC (11/12/2020 4:37 PM SODA MAKER) Coagulase Negative Positive (A) Negative, See [facility] Staphylococcus Comment/Narra SERVICES tive Specimen Blood - ARM, RIGHT Narrative Performed At [facility] Coagulase negative Staphylococcus (CoNS) detected by D NA probe. CoNS often contaminate blood cultures from sk in colonization during phlebotomy. Preferred management is to repeat blood cultures, and monitor off antibiotics. Contamination is suggested by culture growth after 4 8 hours, or growth in single culture (i.e., one of two s ets). True bacteremia is suggested by the fever, hypotensi on, and leukocytosis that are not explained by an alternat maria del rosario infection, or indwelling foreign devices that appear infected (catheters, lines, or prosthese s). Consider Infectious Diseases consultation if different iation of CoNS bacteremia from contamination is uncertain. If clinical context suggests true bacteremia, preferre d therapy is vancomycin. Please contact the Antimicrobial Stewardship Program w ith questions. Pager: [phone] Testing included eleven identification and three resis tance marker targets. Performing Organization Address City/[facility]/Zipcode Phone Number [facility] CLIA: [id number] [place], [place] [address] [address] [place] [address] BLOOD CULTURE WORKUP (11/12/2020 4:37 PM SODA MAKER) Blood Culture Coagulase negative Staphylococcus [facility] ABORATORY Workup Comment: SERVICES Organism identified by DNA probe Additional work-up performed only per request. Culture plate(s) will be saved until this date: - 11/21/20 Gram stain Isolated from aerobic [facility] bottle Gram positive SERVICES cocci in clusters Specimen Blood - ARM, RIGHT Performing Organization Address [facility] Phone Number [facility] CLIA: [id number] [place] [address] [phone] 301 [facility] BLOOD CULTURE SCREEN (11/12/2020 4:37 PM SODA MAKER) Blood Culture positive. See Blood Culture Workup for additional information. (AA) No growth [facility] Culture-Aerobic Comment: SERVICES Previous preliminary verifie d result was Culture In Progress on 11/12/2020 at 2201 SODA MAKER Previous preliminary verifie d result was No growth at 24 hours on 11/13/2020 at 1901 SODA MAKER Blood No organisms isolated No growth [facility] Culture-Anaerobic Comment: SERVICES Previous preliminary verifie d result was Culture In Progress on 11/12/2020 at 2201 SODA MAKER Previous preliminary verifie d result was No growth at 24 hours on 11/13/2020 at 1901 SODA MAKER Previous preliminary verifie d result was Culture In Progress on 11/14/2020 at 0133 SODA MAKER Specimen Blood - ARM, RIGHT Performing Organization Address [facility] Phone Number [facility] CLIA: [id number] [place] [address] [address] [facility] BLOOD CULTURE SCREEN (11/12/2020 4:37 PM SODA MAKER) Pathologist [facility] Blood No organisms isolated No growth [facility] Culture-Aerobic Comment: SERVICES Previous preliminary verifie d result was Culture In Progress on 11/12/2020 at 2201 SODA MAKER Previous preliminary verifie d result was No growth at 24 hours on 11/13/2020 at 1901 SODA MAKER Previous preliminary verifie d result was No growth at 48 hours on 11/14/2020 at 1902 SODA MAKER Previous preliminary verifie d result was No growth at 72 hours on 11/15/2020 at 1901 SODA MAKER Blood No organisms isolated No growth [facility] Culture-Anaerobic Comment: SERVICES Previous preliminary verifie d result was Culture In Progress on 11/12/2020 at 2201 SODA MAKER Previous preliminary verifie d result was No growth at 24 hours on 11/13/2020 at 1901 SODA MAKER Previous preliminary verifie d result was No growth at 48 hours on 11/14/2020 at 1902 SODA MAKER Previous preliminary verifie d result was No growth at 72 hours on 11/15/2020 at 1901 SODA MAKER Specimen Blood - ARM, LEFT Performing Organization Address City/[facility] Phone Number [facility] CLIA: [id number] [place] [address] [phone] 301 [facility] POCT GLUCOSE (AUTOMATED) (11/12/2020 3:57 PM SODA MAKER) Pathologist [facility] POCT GLU 99 70 - 110 mg/dL [facility] Specimen Blood Performing Organization Address City/[facility]/Zipcode Phone Number [facility] CLIA: [id number] [place] [address] [phone] 301 [facility] POCT GLUCOSE (AUTOMATED) (11/12/2020 1:46 PM SODA MAKER) Pathologist Sig nature POCT GLU 119 (H) 70 - 110 mg/dL [facility] Specimen Blood Performing Organization Address City/[facility] Phone Number [facility] CLIA: [id number] [place] [address] [place] [address] Prepare Packed RBC (in units), 1 Units (11/12/2020 11:34 AM SODA MAKER) Cross Match Result Compatible LAB ISBT Blood Type Code 8400 LAB Unit Blood Type AB Pos LAB Unit Number [id number] LAB Blood Expiration Date & [id number] LAB Time Status Information Issued LAB Product Identification Red Blood Cells LAB Product Code [id number] LAB Comment: Performed at [facility] Laboratory Services - [facility] Blood Bank [address] [place] [address] Toll Free: [phone] CLIA No. [id number] Specimen Performing Organization Address City/[facility] Phone Number [facility] POCT GLUCOSE (AUTOMATED) (11/12/2020 9:39 AM SODA MAKER) Pathologist [facility] POCT GLU 123 (H) 70 - 110 mg/dL [facility] Specimen Blood Performing Organization Address [facility] Phone Number [facility] CLIA: [id number] [place] [address] [place] [address] PHOSPHORUS (11/12/2020 6:06 AM SODA MAKER) Pathologist Sig nature PHOSPHORUS 3.8 2.5 - 5.0 mg/dL [facility] Specimen Blood - CENTRAL VENOUS LINE Performing Organization Address City/[facility] Phone Number [facility] CLIA: [id number] [place] [address] [place] [address] MAGNESIUM (11/12/2020 6:06 AM SODA MAKER) Pathologist Sig nature MAGNESIUM 1.7 1.7 - 2.4 mg/dL [facility] Specimen Blood - CENTRAL VENOUS LINE Performing Organization Address City/[facility] Phone Number [facility] CLIA: [id number] [place] [address] [place] [address] HEPATIC FUNCTION PANEL (81440) (ALB,T.PRO,BILI T,BU/BC,ALT,AST,ALK PHOS) (11/12/2020 6:06 AM SODA MAKER) Pathologist Sig nature TOTAL BILI 0.3 0.1 - 1.1 mg/dL [facility] BILI UNCON 0.3 0.1 - 1.1 mg/dL [facility] BILI CONJ 0.0 0.0 - 0.3 mg/dL [facility] T PROTEIN 4.1 (L) 6.3 - 8.2 g/dL [facility] ALBUMIN 1.6 (L) 3.5 - 5.0 g/dL [facility] ALK PHOS 156 (H) 34 - 122 U/L [facility] ALTv 40 5 - 50 U/L [facility] AST(SGOT) 38 13 - 40 U/L [facility] Specimen Blood - CENTRAL VENOUS LINE Performing Organization Address City/State/Zipcode Phone Number [facility] CLIA: [id number] [place] [address] [place] [address] CMV BY PCR (11/12/2020 6:06 AM SODA MAKER) Specimen Tested Plasma [facility] CMV PCR - log Comment: This is a [facility] IU/mL corrected result. SERVICES Previous result was <2.5 log IU/mL on 11/14/2020 at 1513 SODA MAKER CMV PCR - IU/mL [facility] Comment: SERVICES See Comment/Narrative This is a corrected result. Previous result was <300 IU/mL on 11/14/2020 at 1513 SODA MAKER CMV PCR - log Comment: This is a [facility] copies/mL corrected result. SERVICES Previous result was <2.7 log copies/mL on 11/14/2020 at 1513 SODA MAKER CMV PCR - Comment: This is a [facility] copies/mL corrected result. SERVICES Previous result was <516 copies/mL on 11/14/2020 at 1513 SODA MAKER CMV PCR Detected, not See Comment [facility] Quantifiable (A) IU/mL SERVICES Specimen Blood - ARM, LEFT Narrative Performed At Test Information: Cytomegalovirus (CMV) DNA, Quantitation. [facility]ORY SERVICES The quantitative range of this [...] and its performance characteristics determin ed by [facility] Clinical Microbiology Laboratory. It has not been cleared or approved by the U.S. Food and Drug Administration; however, the FDA has determined that s [facility] clearance or approval is not necessary. This test is [facility] for clinical purposes. It should not be regarded as investigational or for research. This laboratory is certified under the Clinical Laboratory Improvement Amendments of 1988 (CLIA-88) as qualified to perform [facility] complexity clinical laboratory testing. Performing Organization Address City/State/Zipcode Phone Number [facility] SERVICES CLIA: [id number] [place] [address] [place] [address] BASIC METABOLIC PANEL (NA, K, CL, CO2, GLUCOSE, BUN, CREATININE, CA) (11/12/2020 6:06 AM SODA MAKER) NA 134 (L) 135 - 145 [facility] mmol/L SERVICES K 4.0 3.5 - 5.0 [facility] mmol/L SERVICES CL 103 98 - 108 mmol/L [facility] SERVICES CO2 TOTAL 31 23 - 31 mmol/L [facility] SERVICES AGAP <1 (L) 2 - 16 [facility] SERVICES BUN 6 (L) 7 - 23 mg/dL [facility] SERVICES GLUCOSE 97 70 - 110 mg/dL [facility] SERVICES CREATININE 0.17 (L) 0.60 - 1.25 [facility] mg/dL SERVICES CALCIUM 6.9 (L) 8.6 - 10.6 [facility] mg/dL SERVICES eGFR Calculation 653.4 mL/min/1.73m2 [facility] LAB[facility] (Non- SERVICES [place]) eGFR Calculation 791.9 mL/min/1.73m2 [facility] () SERVICES Specimen Blood - CENTRAL VENOUS LINE Narrative Performed At Association of Glomerular Filtration Rate (GFR) and St aging [facility] SERVICES of Kidney Disease* + + [...] . Performing Organization Address City/State/Zipcode Phone Number [facility] CLIA: [id number] [place], [place] [address] [address] [place] [address] CYTOMEGALOVIRUS ANTIBODY IGG (11/12/2020 6:06 AM SODA MAKER) Pathologist Sig nature CMV IGG Positive Negative [facility] SERVICES Specimen Blood - CENTRAL VENOUS LINE Narrative Performed At Positive - Indicates current or past CMV infection. [facility] SERVICES Negative - Indicates no serologic evidence of CMV infe ction. Cannot exclude acute CMV infection. Equivocal - A second specimen should be sent for repea t testing. Performing Organization Address City/State/Zipcode Phone Number [facility] CLIA: [id number] [place] [address] [place] [address] CYTOMEGALOVIRUS ANTIBODY IGM (11/12/2020 6:06 AM SODA MAKER) Pathologist Sig nature CMV IGM Negative Negative [facility] Specimen Blood - CENTRAL VENOUS LINE Narrative Performed At Positive - Indicative of acute primary or recent infec tion [facility] SERVICES with CMV. Negative - No anti-CMV IgM detected. Equivocal - A second sample should be sent. Performing Organization Address City/[facility]/Zipcode Phone Number [facility] CLIA: [id number] [place] [address] [place] [address] CBC WITH DIFF (11/12/2020 6:05 AM SODA MAKER) Pathologist Sig nature WBC 5.66 4.20 - 10.70 [facility] 10*3/L SERVICES RBC 2.21 (L) 4.26 - 5.52 [facility] 10*6/L SERVICES HGB 6.3 (L) 12.2 - 16.4 [facility] g/dL SERVICES HCT 19.1 (L) 38.4 - 49.3 % [facility] SERVICES MCV 86.4 81.7 - 95.6 fL [facility] SERVICES MCH 28.5 26.1 - 32.7 pg [facility] SERVICES MCHC 33.0 31.2 - 35.0 [facility] g/dL SERVICES RDW-SD 42.5 38.5 - 51.6 fL [facility] SERVICES RDW-CV 13.9 12.1 - 15.4 % [facility]ATORY SERVICES PLT 178 150 - 328 [facility] 10*3/L SERVICES MPV 11.1 9.8 - 13.0 fL [facility] SERVICES NRBC/100 WBC 0.0 0.0 - 10.0 /100 [facility] WBCs SERVICES NRBC x10^3 <0.01 10*3/L [facility] SERVICES GRAN MAT (NEUT) % 65.9 % [facility] SERVICES IMM GRAN % 0.50 % [facility] LYMPH % 26.3 % [facility] SERVICES MONO % 7.1 % [facility] SERVICES EOS % 0.2 % [facility] SERVICES BASO % 0.0 % [facility] SERVICES GRAN MAT x10^3(ANC) 3.73 1.99 - 6.95 [facility] 10*3/uL SERVICES IMM GRAN x10^3 0.03 0.00 - 0.06 [facility] LAB[facility]ORY 10*3/uL SERVICES LYMPH x10^3 1.49 1.09 - 3.23 [facility] LAB[facility] 10*3/uL SERVICES MONO x10^3 0.40 0.36 - 1.02 [facility] 10*3/uL SERVICES EOS x10^3 <0.03 (L) 0.06 - 0.53 [facility] 10*3/uL SERVICES BASO x10^3 <0.03 0.01 - 0.09 [facility] 10*3/uL SERVICES Specimen Blood - CENTRAL VENOUS LINE Performing Organization Address City/[facility] Phone Number [facility] SERVICES CLIA: [id number] [place], [place] [address] [address] [place] [address] POCT GLUCOSE (AUTOMATED) (11/12/2020 4:04 AM SODA MAKER) Pathologist Sig nature POCT GLU 109 70 - 110 mg/dL [facility] Specimen Blood Performing Organization Address [facility] Phone Number [facility] CLIA: [id number] [place], [place] [address] [address] [facility] POCT GLUCOSE (AUTOMATED) (11/12/2020 12:49 AM SODA MAKER) Pathologist Sig nature POCT GLU 154 (H) 70 - 110 mg/dL [facility] Specimen Blood Performing Organization Address [facility] Phone Number [facility] CLIA: [id number] [place], [place] [address] [address] [facility] POCT GLUCOSE (AUTOMATED) (11/11/2020 9:38 PM SODA MAKER) Pathologist Sig nature POCT GLU 108 70 - 110 mg/dL [facility] Specimen Blood Performing Organization Address [facility] Phone Number [facility] CLIA: [id number] [place] [address] [phone] 301 [facility] POCT GLUCOSE (AUTOMATED) (11/11/2020 5:46 PM SODA MAKER) Pathologist Sig nature POCT GLU 113 (H) 70 - 110 mg/dL [facility] Specimen Blood Performing Organization Address [facility] Phone Number [facility] CLIA: [id number] [place] [address] [phone] [address] [employer] [facility] POCT GLUCOSE (AUTOMATED) (11/11/2020 12:43 PM SODA MAKER) Pathologist Sig nature POCT GLU 99 70 - 110 mg/dL [facility] Specimen Blood Performing Organization Address [facility] Phone Number [facility] CLIA: [id number] [place] [address] [phone] 301 [facility] POCT GLUCOSE (AUTOMATED) (11/11/2020 9:34 AM SODA MAKER) Pathologist Sig nature POCT GLU 102 70 - 110 mg/dL [facility] Specimen Blood Performing Organization Address [facility] Phone Number [facility] CLIA: [id number] [place] [address] [phone] 301 [facility] POCT GLUCOSE (AUTOMATED) (11/11/2020 4:14 AM SODA MAKER) Pathologist Sig nature POCT GLU 95 70 - 110 mg/dL [facility] Specimen Blood Performing Organization Address [facility] Phone Number [facility] CLIA: [id number] [place] [address] [phone] 301 [facility] CBC WITHOUT DIFF (11/11/2020 12:55 AM SODA MAKER) Pathologist Sig nature WBC 5.56 4.20 - 10.70 [facility] 10*3/L SERVICES RBC 2.60 (L) 4.26 - 5.52 [facility] 10*6/L SERVICES HGB 7.4 (L) 12.2 - 16.4 g/dL [facility]ORY SERVICES HCT 22.5 (L) 38.4 - 49.3 % [facility] MCH 28.5 26.1 - 32.7 pg [facility] SERVICES MCV 86.5 81.7 - 95.6 fL [facility] MCHC 32.9 31.2 - 35.0 g/dL [facility]OR[facility]ORY SERVICES PLT 141 (L) 150 - 328 10*3/L [facility] MPV 11.5 9.8 - 13.0 fL [facility] RDW-CV 13.7 12.1 - 15.4 % [facility] RDW-SD 42.6 38.5 - 51.6 fL [facility] SERVICES NRBC x10^3 <0.01 10*3/L [facility] SERVICES NRBC/100 WBC 0.0 0.0 - 10.0 /100 [facility] WBCs SERVICES IPF % [facility] Specimen Blood - CENTRAL VENOUS LINE Performing Organization Address City/[facility]/Zipcode Phone Number [facility] CLIA: [id number] [place], [place] [address] [place] [address] PHOSPHORUS (11/11/2020 12:55 AM SODA MAKER) Pathologist Sig nature PHOSPHORUS 3.0 2.5 - 5.0 mg/dL [facility]ORATORY SERVICES Specimen Blood - CENTRAL VENOUS LINE Performing Organization Address City/[facility] Phone Number [facility] CLIA: [id number] [place] [address] [place] [address] MAGNESIUM (11/11/2020 12:55 AM SODA MAKER) Pathologist Sig nature MAGNESIUM 1.6 (L) 1.7 - 2.4 mg/dL [facility]ORATORY SERVICES Specimen Blood - CENTRAL VENOUS LINE Performing Organization Address City/[facility] Phone Number [facility] CLIA: [id number] [place] [address] [place] [address] BASIC METABOLIC PANEL (NA, K, CL, CO2, GLUCOSE, BUN, CREATININE, CA) (11/11/2020 12:55 AM SODA MAKER) NA 136 135 - 145 [facility] mmol/L SERVICES K 4.1 3.5 - 5.0 [facility] mmol/L SERVICES CL 103 98 - 108 mmol/L [facility] SERVICES CO2 TOTAL 36 (H) 23 - 31 mmol/L [facility] SERVICES AGAP <1 (L) 2 - 16 [facility] SERVICES BUN 6 (L) 7 - 23 mg/dL [facility] SERVICES GLUCOSE 108 70 - 110 mg/dL [facility] SERVICES CREATININE 0.19 (L) 0.60 - 1.25 [facility] mg/dL SERVICES CALCIUM 6.9 (L) 8.6 - 10.6 [facility] mg/dL SERVICES eGFR Calculation 574.7 mL/min/1.73m2 [facility] LABOR[facility]ORY (Non- SERVICES [place]) eGFR Calculation 696.5 mL/min/1.73m2 [facility]ORAT[facility] () SERVICES Specimen Blood - CENTRAL VENOUS LINE Narrative Performed At Association of Glomerular Filtration Rate (GFR) and St aging [facility]OR[facility]ORY SERVICES of Kidney Disease* + + [...] in imaging tests) . Performing Organization Address City/[facility] Phone Number [facility] CLIA: [id number] [place], [place] [address] [place] [address] POCT GLUCOSE (AUTOMATED) (11/11/2020 12:44 AM SODA MAKER) [facility] POCT GLU 110 70 - 110 mg/dL [facility] Specimen Blood Performing Organization Address City/[facility] [place] Phone Number [facility] CLIA: [id number] [place], [place] [address] [address] [place] [address] POCT GLUCOSE (AUTOMATED) (11/10/2020 7:38 PM SODA MAKER) Pathologist Sig nature POCT GLU 98 70 - 110 mg/dL [facility] Specimen Blood Performing Organization Address [facility] Phone Number [facility] CLIA: [id number] [place] [address] [phone] [address] [employer] POCT GLUCOSE (AUTOMATED) (11/10/2020 3:38 PM SODA MAKER) Pathologist Sig nature POCT GLU 118 (H) 70 - 110 mg/dL [facility] Specimen Blood Performing Organization Address [facility] Phone Number [facility] CLIA: [id number] [place] [address] [phone] 301 [facility] POCT GLUCOSE (AUTOMATED) (11/10/2020 11:42 AM SODA MAKER) Pathologist Sig nature POCT GLU 105 70 - 110 mg/dL [facility] Specimen Blood Performing Organization Address [facility] Phone Number [facility] CLIA: [id number] [place] [address] [phone] 301 [facility] POCT GLUCOSE (AUTOMATED) (11/10/2020 7:51 AM SODA MAKER) Pathologist Sig nature POCT GLU 117 (H) 70 - 110 mg/dL [facility] Specimen Blood Performing Organization Address [facility] Phone Number [facility] CLIA: [id number] [place] [address] [phone] 301 [facility] POCT GLUCOSE (AUTOMATED) (11/10/2020 3:43 AM SODA MAKER) Pathologist Sig nature POCT GLU 117 (H) 70 - 110 mg/dL [facility] Specimen Blood Performing Organization Address [facility] Phone Number [facility] CLIA: [id number] [place] [address] [phone] 301 [facility] PHOSPHORUS (11/10/2020 3:42 AM SODA MAKER) Pathologist Sig nature PHOSPHORUS 2.7 2.5 - 5.0 mg/dL [facility] LABORATORY SERVICES Specimen Blood - CENTRAL VENOUS LINE Performing Organization Address [facility] Phone Number [facility] CLIA: [id number] [place] [address] [place] [address] MAGNESIUM (11/10/2020 3:42 AM SODA MAKER) Pathologist Sig nature MAGNESIUM 2.0 1.7 - 2.4 mg/dL [facility] SERVICES Specimen Blood - CENTRAL VENOUS LINE Performing Organization Address [facility] Phone Number [facility] CLIA: [id number] [place] [address] [phone] 301 [facility] BASIC METABOLIC PANEL (NA, K, CL, CO2, GLUCOSE, BUN, CREATININE, CA) (11/10/2020 3:42 AM SODA MAKER) NA 136 135 - 145 [facility] mmol/L SERVICES K 4.0 3.5 - 5.0 [facility] mmol/L SERVICES CL 105 98 - 108 mmol/L [facility] SERVICES CO2 TOTAL 34 (H) 23 - 31 mmol/L [facility] SERVICES AGAP <1 (L) 2 - 16 [facility] SERVICES BUN 6 (L) 7 - 23 mg/dL [facility] SERVICES GLUCOSE 114 (H) 70 - 110 mg/dL [facility] SERVICES CREATININE 0.16 (L) 0.60 - 1.25 [facility] mg/dL SERVICES CALCIUM 7.0 (L) 8.6 - 10.6 [facility] mg/dL SERVICES eGFR Calculation 700.7 mL/min/1.73m2 [facility] LABOR[facility] (Non- SERVICES [place]) eGFR Calculation 849.3 mL/min/1.73m2 [facility] () SERVICES Specimen Blood - CENTRAL VENOUS LINE Narrative Performed At Association of Glomerular Filtration Rate (GFR) and St aging [facility] SERVICES of Kidney Disease* + + [...] in imaging tests) . Performing Organization Address City/[facility] Phone Number [facility] CLIA: [id number] [place] [address] [phone] 301 [facility] POCT GLUCOSE (AUTOMATED) (11/09/2020 11:54 PM SODA MAKER) Pathologist Sig nature POCT GLU 102 70 - 110 mg/dL [facility] Specimen Blood Performing Organization Address [facility] Phone Number [facility] CLIA: [id number] [place] [address] [place] [address] POCT GLUCOSE (AUTOMATED) (11/09/2020 7:55 PM SODA MAKER) Pathologist Sig nature POCT GLU 115 (H) 70 - 110 mg/dL [facility] Specimen Blood Performing Organization Address [facility] Phone Number [facility] CLIA: [id number] [place] [address] [place] [address] POCT GLUCOSE (AUTOMATED) (11/09/2020 4:13 PM SODA MAKER) Pathologist Sig nature POCT GLU 101 70 - 110 mg/dL [facility] Specimen Blood Performing Organization Address [facility] Phone Number [facility] CLIA: [id number] [place] [address] [place] [address] POCT GLUCOSE (AUTOMATED) (11/09/2020 11:34 AM SODA MAKER) Pathologist Sig nature POCT GLU 128 (H) 70 - 110 mg/dL [facility] Specimen Blood Performing Organization Address [facility] Phone Number [facility] CLIA: [id number] [place] [address] [place] [address] Prepare Packed RBC (in units), 1 Units (11/09/2020 8:17 AM SODA MAKER) Cross Match Result Compatible LAB ISBT Blood Type Code 8400 LAB Unit Blood Type AB Pos LAB Unit Number [id number] LAB Blood Expiration Date & LAB Time Status Information Issued LAB Product Identification Red Blood Cells LAB Product Code [id number] LAB Comment: Performed at [facility] Laboratory Services - [facility] Blood [place] [address] Toll Free: [phone] CLIA No. [id number] Specimen Performing Organization Address [facility] Phone Number [facility] POCT GLUCOSE (AUTOMATED) (11/09/2020 8:12 AM SODA MAKER) Pathologist Sig nature POCT GLU 127 (H) 70 - 110 mg/dL [facility] Specimen Blood Performing Organization Address [facility] Phone Number [facility] CLIA: [id number] [place] [address] [place] [address] Type and Screen - ONCE Routine (11/09/2020 5:11 AM SODA MAKER) Pathologist [facility] ABO & RH AB POSITIVE LAB Comment: Performed at [facility] Laboratory Services - [facility] Blood [place] [address] Toll Free: [phone] CLIA No. [id number] IAT Negative LAB Comment: Performed at [facility] Laboratory Services - [facility] Blood [place] [address] Toll Free: [phone] CLIA No. [id number] Specimen Blood - VENOUS Performing Organization Address City/[facility] Phone Number [facility] POCT GLUCOSE (AUTOMATED) (11/09/2020 4:05 AM SODA MAKER) Pathologist Sig nature POCT GLU 123 (H) 70 - 110 mg/dL [facility] Specimen Blood Performing Organization Address City/[facility] Phone Number [facility] CLIA: [id number] [place] [address] [place] [address] CBC WITH DIFF (11/09/2020 4:05 AM SODA MAKER) WBC 4.47 4.20 - 10.70 [facility] 10*3/L SERVICES RBC 2.31 (L) 4.26 - 5.52 [facility] 10*6/L SERVICES HGB 6.6 (L) 12.2 - 16.4 [facility] g/dL SERVICES HCT 19.4 (L) 38.4 - 49.3 % [facility] MCV 84.0 81.7 - 95.6 [facility] fL SERVICES MCH 28.6 26.1 - 32.7 [facility] pg SERVICES MCHC 34.0 31.2 - 35.0 [facility] g/dL SERVICES RDW-SD 41.8 38.5 - 51.6 [facility] fL SERVICES RDW-CV 14.0 12.1 - 15.4 % [facility] PLT 78 (L) 150 - 328 [facility] 10*3/L SERVICES MPV 12.7 9.8 - 13.0 fL [facility] IPF % 5.9Comment: Platelet 1.2 - 10.7 % [facility] count measured by SERVICES fluorescence method. NRBC/100 WBC 0.4 0.0 - 10.0 [facility] /100 WBCs SERVICES NRBC x10^3 0.02 10*3/L [facility] SERVICES GRAN MAT (NEUT) % 60.1 % [facility] IMM GRAN % 0.70 % [facility] LYMPH % 34.5 % [facility] MONO % 4.5 % [facility] EOS % 0.2 % [facility] BASO % 0.0 % [facility] SERVICES GRAN MAT 2.69 1.99 - 6.95 [facility] x10^3(ANC) 10*3/uL SERVICES IMM GRAN x10^3 0.03 0.00 - 0.06 [facility] 10*3/uL SERVICES LYMPH x10^3 1.54 1.09 - 3.23 [facility] 10*3/uL SERVICES MONO x10^3 0.20 (L) 0.36 - 1.02 [facility] 10*3/uL SERVICES EOS x10^3 <0.03 (L) 0.06 - 0.53 [facility]OR[facility]ORY 10*3/uL SERVICES BASO x10^3 <0.03 0.01 - 0.09 [facility] 10*3/uL SERVICES TOXIC CHANGES Present (A) [facility] SERVICES Specimen Blood - CENTRAL VENOUS LINE Performing Organization Address City/[facility]/Zipcode Phone Number [facility] SERVICES CLIA: [id number] [place] [address] [place] [address] PHOSPHORUS (11/09/2020 4:05 AM SODA MAKER) Pathologist Sig nature PHOSPHORUS 2.7 2.5 - 5.0 mg/dL [facility]ATORY SERVICES Specimen Blood - CENTRAL VENOUS LINE Performing Organization Address City/[facility]/Zipcode Phone Number [facility] SERVICES CLIA: [id number] [place] [address] [place] [address] MAGNESIUM (11/09/2020 4:05 AM SODA MAKER) Pathologist Sig nature MAGNESIUM 1.8 1.7 - 2.4 mg/dL [facility]ATORY SERVICES Specimen Blood - CENTRAL VENOUS LINE Performing Organization Address [facility] Phone Number [facility] SERVICES CLIA: [id number] [place] [address] [place] [address] BASIC METABOLIC PANEL (NA, K, CL, CO2, GLUCOSE, BUN, CREATININE, CA) (11/09/2020 4:05 AM SODA MAKER) NA 135 135 - 145 [facility] mmol/L SERVICES K 3.8 3.5 - 5.0 [facility] mmol/L SERVICES CL 102 98 - 108 mmol/L [facility] SERVICES CO2 TOTAL 33 (H) 23 - 31 mmol/L [facility]AT[facility] SERVICES AGAP <1 (L) 2 - 16 [facility] SERVICES BUN 7 7 - 23 mg/dL [facility] SERVICES GLUCOSE 113 (H) 70 - 110 mg/dL [facility]ORATORY SERVICES CREATININE 0.20 (L) 0.60 - 1.25 [facility] mg/dL SERVICES CALCIUM 6.9 (L) 8.6 - 10.6 [facility] mg/dL SERVICES eGFR Calculation 541.7 mL/min/1.73m2 [facility] LABORATORY (Non- SERVICES [place]) eGFR Calculation 656.5 mL/min/1.73m2 [facility] () SERVICES Specimen Blood - CENTRAL VENOUS LINE Narrative Performed At Association of Glomerular Filtration Rate (GFR) and St aging [facility] SERVICES of Kidney Disease* + + [...] in imaging tests) . Performing Organization Address [facility] Phone Number [facility] SERVICES CLIA: [id number] [place] [address] [place] [address] POCT GLUCOSE (AUTOMATED) (11/09/2020 12:04 AM SODA MAKER) Pathologist [facility] POCT GLU 142 (H) 70 - 110 mg/dL [facility] Specimen Blood Performing Organization Address City/[facility] Phone Number [facility] CLIA: [id number] [place] [address] [phone] 301 [facility] POCT GLUCOSE (AUTOMATED) (11/08/2020 7:59 PM SODA MAKER) Pathologist [facility] nature POCT GLU 119 (H) 70 - 110 mg/dL [facility] Specimen Blood Performing Organization Address [facility] Phone Number [facility] CLIA: [id number] [place] [address] [phone] 301 [facility] POCT GLUCOSE (AUTOMATED) (11/08/2020 3:29 PM SODA MAKER) Pathologist Sig nature POCT GLU 83 70 - 110 mg/dL [facility] Specimen Blood Performing Organization Address City/[facility]/Zipcode Phone Number [facility] CLIA: [id number] [place] [address] [place] [address] Acute Care Arterial Blood Gas. (11/08/2020 11:48 AM SODA MAKER) Pathologist Sig nature PH 7.52 (H) 7.35 - 7.45 [facility]ORATORY SERVICES PCO2 40 35 - 45 mmHg [facility]AT[facility] SERVICES PO2 138 (H) 80 - 100 mmHg [facility] SERVICES HCO3 32 (H) 22 - 26 mEq/L [facility]ORATORY SERVICES BE 8.0 (H) -3.0 - 3.0 mEq/L [facility]ORATORY SERVICES Specimen Blood - ARTERIAL Performing Organization Address City/[facility] Phone Number [facility]ATORY SERVICES CLIA: [id number] [place] [address] [place] [address] POCT GLUCOSE (AUTOMATED) (11/08/2020 11:11 AM SODA MAKER) Pathologist Sig nature POCT GLU 116 (H) 70 - 110 mg/dL [facility] Specimen Blood Performing Organization Address [facility] Phone Number [facility] CLIA: [id number] [place] [address] [place] [address] POCT GLUCOSE (AUTOMATED) (11/08/2020 8:56 AM SODA MAKER) Pathologist Sig nature POCT GLU 94 70 - 110 mg/dL [facility] Specimen Blood Performing Organization Address City/[facility]/[place] Phone Number [facility] CLIA: [id number] [place] [address] [place] [address] PHOSPHORUS (11/08/2020 4:30 AM SODA MAKER) Pathologist Sig nature PHOSPHORUS 1.9 (L) 2.5 - 5.0 mg/dL [facility] LABORATORY SERVICES Specimen Blood Performing Organization Address City/[facility]/Zipcode Phone Number [facility] SERVICES CLIA: [id number] [place] [address] [place] [address] MAGNESIUM (11/08/2020 4:30 AM SODA MAKER) Pathologist Sig nature MAGNESIUM 1.6 (L) 1.7 - 2.4 mg/dL [facility]ORATORY SERVICES Specimen Blood Performing Organization Address City/State/Zipcode Phone Number [facility]ORY SERVICES CLIA: [id number] [place] [address] [place] [address] BASIC METABOLIC PANEL (NA, K, CL, CO2, GLUCOSE, BUN, CREATININE, CA) (11/08/2020 4:30 AM SODA MAKER) NA 133 (L) 135 - 145 [facility] mmol/L SERVICES K 3.7 3.5 - 5.0 [facility] mmol/L SERVICES CL 104 98 - 108 mmol/L [facility]ORAT[facility] SERVICES CO2 TOTAL 30 23 - 31 mmol/L [facility]ORATORY SERVICES AGAP <1 (L) 2 - 16 [facility] SERVICES BUN 9 7 - 23 mg/dL [facility] SERVICES GLUCOSE 133 (H) 70 - 110 mg/dL [facility] LABORATORY SERVICES CREATININE 0.18 (L) 0.60 - 1.25 [facility] mg/dL SERVICES CALCIUM 6.6 (L) 8.6 - 10.6 [facility] mg/dL SERVICES eGFR Calculation 611.7 mL/min/1.73m2 [facility] LABORATORY (Non- SERVICES [place]) eGFR Calculation 741.4 mL/min/1.73m2 [facility] () SERVICES Specimen Blood Narrative Performed At Association of Glomerular Filtration Rate (GFR) and St aging [facility] LABORATORY SERVICES of Kidney Disease* + + [...] in imaging tests) . Performing Organization Address City/[facility]/Zipcode Phone Number [facility]ORY SERVICES CLIA: [id number] [place] [address] [phone] [address] [facility] POCT GLUCOSE (AUTOMATED) (11/08/2020 4:11 AM SODA MAKER) Pathologist Sig nature POCT GLU 139 (H) 70 - 110 mg/dL [facility] Specimen Blood Performing Organization Address [facility] Phone Number [facility] CLIA: [id number] [place] [address] [phone] 301 [facility] POCT GLUCOSE (AUTOMATED) (11/08/2020 1:37 AM SODA MAKER) Pathologist Sig nature POCT GLU 108 70 - 110 mg/dL [facility] Specimen Blood Performing Organization Address [facility] Phone Number [facility] CLIA: [id number] [place] [address] [phone] 301 [facility] POCT GLUCOSE (AUTOMATED) (11/07/2020 9:22 PM SODA MAKER) Pathologist Sig nature POCT GLU 114 (H) 70 - 110 mg/dL [facility] Specimen Blood Performing Organization Address [facility] Phone Number [facility] CLIA: [id number] [place] [address] [phone] 301 [facility] POCT GLUCOSE (AUTOMATED) (11/07/2020 6:46 PM SODA MAKER) Pathologist Sig nature POCT GLU 160 (H) 70 - 110 mg/dL [facility] Specimen Blood Performing Organization Address [facility] Phone Number [facility] CLIA: [id number] [place], [place] [address] [address] [employer] POCT GLUCOSE (AUTOMATED) (11/07/2020 6:10 PM SODA MAKER) Pathologist Sig nature POCT GLU 67 (L) 70 - 110 mg/dL [facility] Specimen Blood Performing Organization Address City/[facility] Phone Number [facility] CLIA: [id number] [place] [address] 06 [place] [address] PROTEIN QUANT U/24H (11/07/2020 4:47 PM SODA MAKER) Pathologist Sig nature T. VOL U 775 mL [facility] HR COLLECT 24 Hours [facility] T. PROT U 29 mg/dL [facility] PRO U/24HR 225 (H) <150 mg/24h [facility] Specimen Urine - URINE, CATHETERIZED Performing Organization Address City/[facility] Phone Number [facility] CLIA: [id number] [place] [address] [place] [address] POCT GLUCOSE (AUTOMATED) (11/07/2020 4:06 PM SODA MAKER) Pathologist Sig nature POCT GLU 86 70 - 110 mg/dL [facility] Specimen Blood Performing Organization Address [facility] Phone Number [facility] CLIA: [id number] [place] [address] [place] [address] BLOOD CULTURE SCREEN (11/07/2020 3:51 PM SODA MAKER) Blood No organisms isolated No growth [facility] Culture-Aerobic Comment: SERVICES Previous preliminary verifie d result was Culture In Progress on 11/07/2020 at 2202 SODA MAKER Previous preliminary verifie d result was No growth at 24 hours on 11/08/2020 at 1901 SODA MAKER Previous preliminary verifie d result was No growth at 48 hours on 11/09/2020 at 1901 SODA MAKER Previous preliminary verifie d result was No growth at 72 hours on 11/10/2020 at 1901 SODA MAKER Blood No organisms isolated No growth [facility] Culture-Anaerobic Comment: SERVICES Previous preliminary verifie d result was Culture In Progress on 11/07/2020 at 2202 SODA MAKER Previous preliminary verifie d result was No growth at 24 hours on 11/08/2020 at 1901 SODA MAKER Previous preliminary verifie d result was No growth at 48 hours on 11/09/2020 at 1901 SODA MAKER Previous preliminary verifie d result was No growth at 72 hours on 11/10/2020 at 1901 SODA MAKER Specimen Blood - VENOUS Performing Organization Address City/[facility] Phone Number [facility] CLIA: [id number] [place] [address] [phone] 301 [facility] MAGNESIUM (11/07/2020 3:49 PM SODA MAKER) Pathologist Sig nature MAGNESIUM 1.7 1.7 - 2.4 mg/dL [facility] Specimen Blood - CENTRAL VENOUS LINE Performing Organization Address [facility] Phone Number [facility] CLIA: [id number] [place] [address] [phone] 301 [facility] PHOSPHORUS (11/07/2020 3:49 PM SODA MAKER) Pathologist Sig nature PHOSPHORUS 1.8 (L) 2.5 - 5.0 mg/dL [facility] Specimen Blood - CENTRAL VENOUS LINE Performing Organization Address [facility] Phone Number [facility] CLIA: [id number] [place] [address] [phone] 301 [facility] BLOOD CULTURE SCREEN (11/07/2020 3:49 PM SODA MAKER) Blood No organisms isolated No growth [facility] Culture-Aerobic Comment: SERVICES Previous preliminary verifie d result was Culture In Progress on 11/07/2020 at 2202 SODA MAKER Previous preliminary verifie d result was No growth at 24 hours on 11/08/2020 at 1901 SODA MAKER Previous preliminary verifie d result was No growth at 48 hours on 11/09/2020 at 1901 SODA MAKER Previous preliminary verifie d result was No growth at 72 hours on 11/10/2020 at 1901 SODA MAKER Blood No organisms isolated No growth [facility] Culture-Anaerobic Comment: SERVICES Previous preliminary verifie d result was Culture In Progress on 11/07/2020 at 2202 SODA MAKER Previous preliminary verifie d result was No growth at 24 hours on 11/08/2020 at 1901 SODA MAKER Previous preliminary verifie d result was No growth at 48 hours on 11/09/2020 at 1901 SODA MAKER Previous preliminary verifie d result was No growth at 72 hours on 11/10/2020 at 1901 SODA MAKER Specimen Blood - CENTRAL VENOUS LINE Performing Organization Address City/State/Zipcode Phone Number [facility] CLIA: [id number] [facility] [place] [address] [place] [address] COMP. METABOLIC PANEL (71149) (11/07/2020 3:49 PM SODA MAKER) NA 133 (L) 135 - 145 [facility] mmol/L SERVICES K 3.9 3.5 - 5.0 [facility] mmol/L SERVICES CL 103 98 - 108 mmol/L [facility] CO2 TOTAL 33 (H) 23 - 31 mmol/L [facility] AGAP <1 (L) 2 - 16 [facility] BUN 10 7 - 23 mg/dL [facility] GLUCOSE 79 70 - 110 mg/dL [facility] CREATININE 0.22 (L) 0.60 - 1.25 [facility] mg/dL SERVICES TOTAL BILI 0.7 0.1 - 1.1 mg/dL [facility] CALCIUM 6.7 (L) 8.6 - 10.6 [facility] mg/dL SERVICES T PROTEIN 4.3 (L) 6.3 - 8.2 g/dL [facility] ALBUMIN 1.7 (L) 3.5 - 5.0 g/dL [facility] ALK PHOS 208 (H) 34 - 122 U/L [facility] ALTv 54 (H) 5 - 50 U/L [facility] AST(SGOT) 48 (H) 13 - 40 U/L [facility] eGFR Calculation 485.2 mL/min/1.73m2 [facility] (Non- SERVICES [place]) eGFR Calculation 588.1 mL/min/1.73m2 [facility] () SERVICES Specimen Blood - CENTRAL VENOUS LINE Narrative Performed At Association of Glomerular Filtration Rate (GFR) and St aging [facility] of Kidney Disease* + + [...] in imaging tests) . Performing Organization Address City/[facility] Phone Number [facility] CLIA: [id number] [place] [address] [place] [address] POCT GLUCOSE (AUTOMATED) (11/07/2020 2:47 PM SODA MAKER) Pathologist Sig nature POCT GLU 100 70 - 110 mg/dL [facility] Specimen Blood Performing Organization Address [facility] Phone Number [facility] CLIA: [id number] [place] [address] [phone] 301 [facility] POCT GLUCOSE (AUTOMATED) (11/07/2020 11:35 AM SODA MAKER) Pathologist Sig nature POCT GLU 118 (H) 70 - 110 mg/dL [facility] Specimen Blood Performing Organization Address [facility] Phone Number [facility] CLIA: [id number] [place] [address] [place] [address] POCT GLUCOSE (AUTOMATED) (11/07/2020 10:39 AM SODA MAKER) Pathologist Sig nature POCT GLU 120 (H) 70 - 110 mg/dL [facility] Specimen Blood Performing Organization Address [facility] Phone Number [facility] CLIA: [id number] [place] [address] [phone] 301 [facility] Acute Care Arterial Blood Gas. (11/07/2020 9:24 AM SODA MAKER) Pathologist Sig nature PH 7.47 (H) 7.35 - 7.45 [facility] PCO2 40 35 - 45 mmHg [facility] PO2 144 (H) 80 - 100 mmHg [facility] HCO3 28 (H) 22 - 26 mEq/L [facility] BE 4.1 (H) -3.0 - 3.0 mEq/L [facility] Specimen Blood - ARTERIAL Performing Organization Address City/[facility] Phone Number [facility] CLIA: [id number] [place] [address] [place] [address] POCT GLUCOSE (AUTOMATED) (11/07/2020 7:43 AM SODA MAKER) Pathologist Sig nature POCT GLU 139 (H) 70 - 110 mg/dL [facility] Specimen Blood Performing Organization Address City/[facility] Phone Number [facility] CLIA: [id number] [place] [address] [place] [address] PHOSPHORUS (11/07/2020 6:34 AM SODA MAKER) Pathologist Sig nature PHOSPHORUS 1.0 (L) 2.5 - 5.0 mg/dL [facility] Specimen Blood - ARTERIAL Performing Organization Address City/[facility] Phone Number [facility] CLIA: [id number] [place] [address] [place] [address] MAGNESIUM (11/07/2020 6:34 AM SODA MAKER) Pathologist Sig nature MAGNESIUM 1.7 1.7 - 2.4 mg/dL [facility] Specimen Blood - ARTERIAL Performing Organization Address City/[facility] Phone Number [facility] CLIA: [id number] [place] [address] [place] [address] BASIC METABOLIC PANEL (NA, K, CL, CO2, GLUCOSE, BUN, CREATININE, CA) (11/07/2020 6:34 AM SODA MAKER) NA 132 (L) 135 - 145 [facility] mmol/L SERVICES K 3.6 3.5 - 5.0 [facility] mmol/L SERVICES CL 102 98 - 108 mmol/L [facility] CO2 TOTAL 32 (H) 23 - 31 mmol/L [facility] AGAP <1 (L) 2 - 16 [facility] BUN 12 7 - 23 mg/dL [facility] GLUCOSE 159 (H) 70 - 110 mg/dL [facility] CREATININE 0.20 (L) 0.60 - 1.25 [facility] mg/dL SERVICES CALCIUM 6.5 (L) 8.6 - 10.6 [facility] mg/dL SERVICES eGFR Calculation 541.7 mL/min/1.73m2 [facility] (Non- SERVICES [place]) eGFR Calculation 656.5 mL/min/1.73m2 [facility] () SERVICES Specimen Blood - ARTERIAL Narrative Performed At Association of Glomerular Filtration Rate (GFR) and St aging [facility] of Kidney Disease* + + [...] in imaging tests) . Performing Organization Address City/[facility] Phone Number [facility] CLIA: [id number] [place] [address] [place] [address] POCT GLUCOSE (AUTOMATED) (11/07/2020 4:27 AM SODA MAKER) [facility] POCT GLU 144 (H) 70 - 110 mg/dL [facility] Specimen Blood Performing Organization Address City/[facility] Phone Number [facility] CLIA: [id number] [place], [place] [address] [place] [address] [place] CATHETER TIP CULTURE (11/07/2020 1:57 AM SODA MAKER) CATH TIP CULTURE No aerobic [facility] organisms isolated SERVICES Specimen Catheter Tip IV - CATHETER TIP Performing Organization Address City/[facility] Phone Number [facility] CLIA: [id number] [place] [address] [address] [facility] CATHETER TIP CULTURE (11/07/2020 1:56 AM SODA MAKER) CATH TIP CULTURE Fountain Count - >100 Zari albicans [facility] Comment: SERVICES Fountain morphologically consistent with organism above For susceptibility results, refer to culture # - [id number] Specimen Catheter Tip IV - CATHETER TIP Performing Organization Address City/[facility]/Zipcode Phone Number [facility] CLIA: [id number] [place] [address] [place] [address] POCT GLUCOSE (AUTOMATED) (11/07/2020 12:03 AM SODA MAKER) Pathologist [facility] POCT GLU 110 70 - 110 mg/dL [facility] Specimen Blood Performing Organization Address City/[facility] Phone Number [facility] CLIA: [id number] [place] [address] [phone] 301 [facility] BLOOD CULTURE SCREEN (11/06/2020 6:16 PM SODA MAKER) Pathologist [facility] Blood No organisms isolated No growth [facility] Culture-Aerobic Comment: SERVICES Previous preliminary verifie d result was Culture In Progress on 11/06/2020 at 2301 SODA MAKER Previous preliminary verifie d result was No growth at 24 hours on 11/07/2020 at 2001 SODA MAKER Previous preliminary verifie d result was No growth at 48 hours on 11/08/2020 at 2001 SODA MAKER Previous preliminary verifie d result was No growth at 72 hours on 11/09/2020 at 2001 SODA MAKER Blood No organisms isolated No growth [facility] Culture-Anaerobic Comment: SERVICES Previous preliminary verifie d result was Culture In Progress on 11/06/2020 at 2301 SODA MAKER Previous preliminary verifie d result was No growth at 24 hours on 11/07/2020 at 2001 SODA MAKER Previous preliminary verifie d result was No growth at 48 hours on 11/08/2020 at 2001 SODA MAKER Previous preliminary verifie d result was No growth at 72 hours on 11/09/2020 at 2001 SODA MAKER Specimen Blood - ARTERIAL Performing Organization Address City/[facility]/Zipcode Phone Number [facility] CLIA: [id number] [place] [address] [place] [address] MAGNESIUM (11/06/2020 6:15 PM SODA MAKER) Pathologist Sig nature MAGNESIUM 2.0 1.7 - 2.4 mg/dL [facility] Specimen Blood - ARTERIAL Performing Organization Address City/[facility]/Zipcode Phone Number [facility] CLIA: [id number] [place] [address] [place] [address] PHOSPHORUS (11/06/2020 6:15 PM SODA MAKER) Pathologist Sig nature PHOSPHORUS 1.1 (L) 2.5 - 5.0 mg/dL [facility] Specimen Blood - ARTERIAL Performing Organization Address [facility] Phone Number [facility] CLIA: [id number] [place] [address] [place] [address] COMP. METABOLIC PANEL (08766) (11/06/2020 6:15 PM SODA MAKER) NA 135 135 - 145 [facility] mmol/L SERVICES K 3.6 3.5 - 5.0 [facility] mmol/L SERVICES CL 105 98 - 108 mmol/L [facility] CO2 TOTAL 30 23 - 31 mmol/L [facility] AGAP <1 (L) 2 - 16 [facility] BUN 14 7 - 23 mg/dL [facility] GLUCOSE 84 70 - 110 mg/dL [facility] CREATININE 0.22 (L) 0.60 - 1.25 [facility] mg/dL SERVICES TOTAL BILI 0.6 0.1 - 1.1 mg/dL [facility] SERVICES CALCIUM 6.6 (L) 8.6 - 10.6 [facility] mg/dL SERVICES T PROTEIN 3.9 (L) 6.3 - 8.2 g/dL [facility] SERVICES ALBUMIN 1.5 (L) 3.5 - 5.0 g/dL [facility] ALK PHOS 201 (H) 34 - 122 U/L [facility] ALTv 50 5 - 50 U/L [facility] AST(SGOT) 52 (H) 13 - 40 U/L [facility] eGFR Calculation 485.2 mL/min/1.73m2 [facility] (Non- SERVICES [place]) eGFR Calculation 588.1 mL/min/1.73m2 [facility] () SERVICES Specimen Blood - ARTERIAL Narrative Performed At Association of Glomerular Filtration Rate (GFR) and St aging [facility] of Kidney Disease* + + [...] in imaging tests) . Performing Organization Address City/[facility]/Zipcode Phone Number [facility] CLIA: [id number] [place] [address] [place] [address] POCT GLUCOSE (AUTOMATED) (11/06/2020 6:13 PM SODA MAKER) Pathologist Sig nature POCT GLU 89 70 - 110 mg/dL [facility] Specimen Blood Performing Organization Address City/[facility]/Zipcode Phone Number [facility] CLIA: [id number] [place] [address] [place] [address] [place] XR CHEST 1 VW (11/06/2020 5:50 PM SODA MAKER) Specimen Impressions Performed At Findings and Impression: Interval plac ement of right IJ central venous PACS/VR/DOSE catheter with tip projects over the mid SVC. ET tube tip projects 4.8 cm superior to the egno. Significant interval improvement in patchy airspace op acities lungs (near resolution). Left costophrenic angle silhouettes with the diaphragm which may suggest a small effusion. No acute osseous abnormalities. Partially visualized o steochondroma within the proximal left humerus. Small osteoch ondroma is also seen within the medial right humerus. Narrative Performed At This result has an attachment that is no t available. PORTABLE CHEST RADIOGRAPH PACS/VR/DOSE History: CVC placement Comparison: 11/02/2020 TECHNIQUE: AP view of the chest. Procedure Note [facility], Radiant Results Inft User - 2020 8:21 PM SODA MAKER PORTABLE CHEST RADIOGRAPH History: CVC placement Comparison: 11/02/2020 TECHNIQUE: AP view of the chest. IMPRESSION Findings and Impression: Interval place ment of right IJ central venous catheter with tip projects over the mid SVC. ET tube tip projects 4.8 cm superior to the geno. Significant interval improvement in patc hy airspace opacities lungs (near resolution). Left costophrenic angle amarjit houettes with the diaphragm which may suggest a small effusion. No acute osseous abnormalities. Partiall y visualized osteochondroma within the proximal left humerus. Small osteoch ondroma is also seen within the medial right humerus. Performing Organization Address City/[facility] Phone Number PACS/VR/DOSE POCT GLUCOSE (AUTOMATED) (11/06/2020 3:25 PM SODA MAKER) Pathologist Sig nature POCT GLU 127 (H) 70 - 110 mg/dL [facility] Specimen Blood Performing Organization Address [facility] Phone Number [facility] CLIA: [id number] [place] [address] [phone] 301 [facility] POCT GLUCOSE (AUTOMATED) (11/06/2020 11:43 AM SODA MAKER) Pathologist Sig nature POCT GLU 119 (H) 70 - 110 mg/dL [facility] Specimen Blood Performing Organization Address [facility] Phone Number [facility] CLIA: [id number] [place] [address] [phone] 301 [facility] POCT GLUCOSE (AUTOMATED) (11/06/2020 10:06 AM SODA MAKER) Pathologist Sig nature POCT GLU 125 (H) 70 - 110 mg/dL [facility] Specimen Blood Performing Organization Address City/[facility]/Zipcode Phone Number [facility] CLIA: [id number] [place], [place] [address] [address] [facility] POCT GLUCOSE (AUTOMATED) (11/06/2020 7:27 AM SODA MAKER) Pathologist Sig nature POCT GLU 108 70 - 110 mg/dL [facility] Specimen Blood Performing Organization Address City/[facility] Phone Number [facility] CLIA: [id number] [place], [place] [address] [address] [facility] LIPID PANEL (21897)(TOTAL CHOLESTEROL, TRIGLYCERIDES, HDL) (11/06/2020 5:01 AM SODA MAKER) Pathologist Sig nature CHOL 55 (L) 120 - 200 mg/dL [facility] HDL 14 (L) >40 mg/dL [facility] HDLC RATIO 3.9 <=5.0 [facility] TRIG 295 (H) 30 - 170 mg/dL [facility] LDL CHOL -18 <=160 mg/dL [facility] VLDL 59 5 - 60 mg/dL [facility] Specimen Blood - ARTERIAL Performing Organization Address City/[facility] Phone Number [facility] CLIA: [id number] [place] [address] [phone] 301 [facility] CREATINE KINASE (11/06/2020 5:01 AM SODA MAKER) Pathologist Sig nature CK 60 33 - 194 U/L [facility] Specimen Blood - ARTERIAL Performing Organization Address City/[facility] Phone Number [facility] CLIA: [id number] [place] [address] [phone] [address] [facility] PHOSPHORUS (11/06/2020 5:01 AM SODA MAKER) Pathologist Sig nature PHOSPHORUS 1.1 (L) 2.5 - 5.0 mg/dL [facility] Specimen Blood - ARTERIAL Performing Organization Address City/[facility] Phone Number [facility] CLIA: [id number] [place] [address] [place] [address] COMP. METABOLIC PANEL (93185) (11/06/2020 5:01 AM SODA MAKER) NA 135 135 - 145 [facility] mmol/L SERVICES K 3.6 3.5 - 5.0 [facility] mmol/L SERVICES CL 107 98 - 108 mmol/L [facility] CO2 TOTAL 29 23 - 31 mmol/L [facility] SERVICES AGAP <1 (L) 2 - 16 [facility] BUN 19 7 - 23 mg/dL [facility] LABORATORY SERVICES GLUCOSE 156 (H) 70 - 110 mg/dL [facility] SERVICES CREATININE 0.28 (L) 0.60 - 1.25 [facility] mg/dL SERVICES TOTAL BILI 0.5 0.1 - 1.1 mg/dL [facility] SERVICES CALCIUM 6.7 (L) 8.6 - 10.6 [facility] mg/dL SERVICES T PROTEIN 4.1 (L) 6.3 - 8.2 g/dL [facility]OR[facility] SERVICES ALBUMIN 1.6 (L) 3.5 - 5.0 g/dL [facility] SERVICES ALK PHOS 241 (H) 34 - 122 U/L [facility] SERVICES ALTv 56 (H) 5 - 50 U/L [facility] SERVICES AST(SGOT) 51 (H) 13 - 40 U/L [facility] SERVICES eGFR Calculation 367.4 mL/min/1.73m2 [facility] (Non- SERVICES [place]) eGFR Calculation 445.2 mL/min/1.73m2 [facility] () SERVICES Specimen Blood - ARTERIAL Narrative Performed At Association of Glomerular Filtration Rate (GFR) and St aging [facility]OR[facility] SERVICES of Kidney Disease* + + +------- ------ + | GFR (mL/min/1.73 m2) | With Kidney Damage | [facility] Kidney Damage + + +------- ------ + [...] in imaging tests) . Performing Organization Address City/[facility] Phone Number [facility] SERVICES CLIA: [id number] [place] [address] [phone] 301 [facility] MAGNESIUM (11/06/2020 5:01 AM SODA MAKER) Pathologist Sig nature MAGNESIUM 1.6 (L) 1.7 - 2.4 mg/dL [facility] LABORATORY SERVICES Specimen Blood - ARTERIAL Performing Organization Address [facility] Phone Number [facility] CLIA: [id number] [place] [address] [place] [address] Acute Care Arterial Blood Gas. (11/06/2020 4:51 AM SODA MAKER) Pathologist Sig nature PH 7.52 (H) 7.35 - 7.45 [facility]OR[facility] SERVICES PCO2 36 35 - 45 mmHg [facility] SERVICES PO2 154 (H) 80 - 100 mmHg [facility] SERVICES HCO3 29 (H) 22 - 26 mEq/L [facility]OR[facility] SERVICES BE 6.0 (H) -3.0 - 3.0 mEq/L [facility]OR[facility] SERVICES Specimen Blood Performing Organization Address [facility] Phone Number [facility] CLIA: [id number] [place] [address] [place] [address] POCT GLUCOSE (AUTOMATED) (11/06/2020 4:25 AM SODA MAKER) Pathologist Sig nature POCT GLU 155 (H) 70 - 110 mg/dL [facility] Specimen Blood Performing Organization Address [facility] Phone Number [facility] CLIA: [id number] [place] [address] [place] [address] POCT GLUCOSE (AUTOMATED) (11/06/2020 2:12 AM SODA MAKER) Pathologist Sig nature POCT GLU 147 (H) 70 - 110 mg/dL [facility] Specimen Blood Performing Organization Address [facility] Phone Number [facility] CLIA: [id number] [place] [address] [phone] 301 [facility] POCT GLUCOSE (AUTOMATED) (11/05/2020 7:37 PM SODA MAKER) Pathologist Sig nature POCT GLU 140 (H) 70 - 110 mg/dL [facility] Specimen Blood Performing Organization Address [facility] Phone Number [facility] CLIA: [id number] [place] [address] [phone] 301 [facility] WOUND CULTURE (11/05/2020 6:35 PM SODA MAKER) Wound Culture 3+ Mixed organisms - [facility]OR[facility] suggests endogenous SERVICES microbial contamination Wound Culture 1+ Zari tropicalis [facility]ORAT[facility] SERVICES Gram stain Few Gram positive [facility] cocci SERVICES Gram stain Occasional (Rare) Gram [facility] negative bacilli SERVICES Gram stain Few Mononuclear cells [facility]AT[facility] SERVICES Specimen Swab - DECUBITUS ULCER Performing Organization Address [facility] Phone Number [facility] SERVICES CLIA: [id number] [place] [address] [phone] 301 [facility] POCT GLUCOSE (AUTOMATED) (11/05/2020 6:28 PM SODA MAKER) Pathologist Sig nature POCT GLU 167 (H) 70 - 110 mg/dL [facility] Specimen Blood Performing Organization Address [facility] Phone Number [facility] CLIA: [id number] [place] [address] [phone] 301 [facility] POCT GLUCOSE (AUTOMATED) (11/05/2020 3:32 PM SODA MAKER) Pathologist Sig nature POCT GLU 133 (H) 70 - 110 mg/dL [facility] Specimen Blood Performing Organization Address [facility] Phone Number [facility] CLIA: [id number] [place] [address] [phone] 301 [facility] POCT GLUCOSE (AUTOMATED) (11/05/2020 2:33 PM SODA MAKER) Pathologist Sig nature POCT GLU 104 70 - 110 mg/dL [facility] Specimen Blood Performing Organization Address City/[facility] Phone Number [facility] CLIA: [id number] [place] [address] [place] [address] BLOOD CULTURE SCREEN (11/05/2020 2:23 PM SODA MAKER) Blood No organisms isolated No growth [facility]OR[facility] Culture-Aerobic Comment: SERVICES Previous preliminary verifie d result was Culture In Progress on 11/05/2020 at 2302 SODA MAKER Previous preliminary verifie d result was No growth at 24 hours on 11/06/2020 at 2000 SODA MAKER Previous preliminary verifie d result was No growth at 48 hours on 11/07/2020 at 2002 SODA MAKER Previous preliminary verifie d result was No growth at 72 hours on 11/08/2020 at 2000 SODA MAKER Blood No organisms isolated No growth [facility] Culture-Anaerobic Comment: SERVICES Previous preliminary verifie d result was Culture In Progress on 11/05/2020 at 2302 SODA MAKER Previous preliminary verifie d result was No growth at 24 hours on 11/06/2020 at 2001 SODA MAKER Previous preliminary verifie d result was No growth at 48 hours on 11/07/2020 at 2002 SODA MAKER Previous preliminary verifie d result was No growth at 72 hours on 11/08/2020 at 2000 SODA MAKER Specimen Blood - ARTERIAL Performing Organization Address City/[facility] Phone Number [facility] SERVICES CLIA: [id number] [place] [address] [place], [place] [address] MAGNESIUM (11/05/2020 2:17 PM SODA MAKER) Pathologist Sig nature MAGNESIUM 1.8 1.7 - 2.4 mg/dL [facility]ORAT[facility] SERVICES Specimen Blood - CENTRAL VENOUS LINE Performing Organization Address City/[facility] Phone Number [facility] SERVICES CLIA: [id number] [place] [address] [place], [place] [address] PHOSPHORUS (11/05/2020 2:17 PM SODA MAKER) Pathologist Sig nature PHOSPHORUS 2.5 2.5 - 5.0 mg/dL [facility] SERVICES Specimen Blood - CENTRAL VENOUS LINE Performing Organization Address City/[facility] Phone Number [facility] CLIA: [id number] [place] [address] [place] [address] BLOOD CULTURE SCREEN (11/05/2020 2:17 PM SODA MAKER) Blood No organisms isolated No growth [facility] Culture-Aerobic Comment: SERVICES Previous preliminary verifie d result was Culture In Progress on 11/05/2020 at 2302 SODA MAKER Previous preliminary verifie d result was No growth at 24 hours on 11/06/2020 at 2000 SODA MAKER Previous preliminary verifie d result was No growth at 48 hours on 11/07/2020 at 2002 SODA MAKER Previous preliminary verifie d result was No growth at 72 hours on 11/08/2020 at 2000 SODA MAKER Blood No organisms isolated No growth [facility] Culture-Anaerobic Comment: SERVICES Previous preliminary verifie d result was Culture In Progress on 11/05/2020 at 2302 SODA MAKER Previous preliminary verifie d result was No growth at 24 hours on 11/06/2020 at 2000 SODA MAKER Previous preliminary verifie d result was No growth at 48 hours on 11/07/2020 at 2002 SODA MAKER Previous preliminary verifie d result was No growth at 72 hours on 11/08/2020 at 2001 SODA MAKER Specimen Blood - VENOUS Performing Organization Address City/State/Zipcode Phone Number [facility] SERVICES CLIA: [id number] [place] [address] [place] [address] COMP. METABOLIC PANEL (06142) (11/05/2020 2:17 PM SODA MAKER) NA 136 135 - 145 [facility] mmol/L SERVICES K 3.2 (L) 3.5 - 5.0 [facility] mmol/L SERVICES CL 106 98 - 108 mmol/L [facility] SERVICES CO2 TOTAL 30 23 - 31 mmol/L [facility] SERVICES AGAP <1 (L) 2 - 16 [facility] SERVICES BUN 24 (H) 7 - 23 mg/dL [facility] SERVICES GLUCOSE 96 70 - 110 mg/dL [facility] SERVICES CREATININE 0.31 (L) 0.60 - 1.25 [facility] mg/dL SERVICES TOTAL BILI 0.8 0.1 - 1.1 mg/dL [facility] SERVICES CALCIUM 6.4 (L) 8.6 - 10.6 [facility] mg/dL SERVICES T PROTEIN 4.2 (L) 6.3 - 8.2 g/dL [facility] SERVICES ALBUMIN 1.7 (L) 3.5 - 5.0 g/dL [facility]AT[facility] SERVICES ALK PHOS 241 (H) 34 - 122 U/L [facility] SERVICES ALTv 49 5 - 50 U/L [facility] SERVICES AST(SGOT) 56 (H) 13 - 40 U/L [facility] SERVICES eGFR Calculation 326.6 mL/min/1.73m2 [facility] LAB[facility] (Non- SERVICES [place]) eGFR Calculation 395.9 mL/min/1.73m2 [facility] () SERVICES Specimen Blood - CENTRAL VENOUS LINE Narrative Performed At Association of Glomerular Filtration Rate (GFR) and St aging [facility] SERVICES of Kidney Disease* + + [...] in imaging tests) . Performing Organization Address City/[facility] Phone Number [facility] CLIA: [id number] [place] [address] [place] [address] POCT GLUCOSE (AUTOMATED) (11/05/2020 1:07 PM SODA MAKER) [facility] POCT GLU 108 70 - 110 mg/dL [facility] Specimen Blood Performing Organization Address City/[facility] Phone Number [facility] CLIA: [id number] [place], [place] [address] [place] [address] [place] POCT GLUCOSE (AUTOMATED) (11/05/2020 9:57 AM SODA MAKER) Pathologist Sig nature POCT GLU 173 (H) 70 - 110 mg/dL [facility] Specimen Blood Performing Organization Address City/[facility] Phone Number [facility] CLIA: [id number] [place] [address] [phone] 301 [facility] POCT GLUCOSE (AUTOMATED) (11/05/2020 7:49 AM SODA MAKER) Pathologist Sig nature POCT GLU 179 (H) 70 - 110 mg/dL [facility] Specimen Blood Performing Organization Address [facility] Phone Number [facility] CLIA: [id number] [place] [address] [place] [address] POCT GLUCOSE (AUTOMATED) (11/05/2020 5:33 AM SODA MAKER) Pathologist Sig nature POCT GLU 173 (H) 70 - 110 mg/dL [facility] Specimen Blood Performing Organization Address [facility] Phone Number [facility] CLIA: [id number] [place] [address] [place] [address] PHOSPHORUS (11/05/2020 5:27 AM SODA MAKER) Pathologist Sig nature PHOSPHORUS 3.3 2.5 - 5.0 mg/dL [facility] SERVICES Specimen Blood - ARTERIAL Performing Organization Address City/[facility] Phone Number [facility] CLIA: [id number] [place] [address] [place] [address] LACTATE DEHYDROGENASE (11/05/2020 5:27 AM SODA MAKER) Pathologist Sig nature LDH 919 (H) 300 - 600 U/L [facility] SERVICES Specimen Blood - ARTERIAL Performing Organization Address [facility] Phone Number [facility] CLIA: [id number] [place] [address] [phone] 301 [facility] COMP. METABOLIC PANEL (12065) (11/05/2020 5:27 AM SODA MAKER) NA 136 135 - 145 [facility] mmol/L SERVICES K 3.1 (L) 3.5 - 5.0 [facility] mmol/L SERVICES CL 106 98 - 108 mmol/L [facility] SERVICES CO2 TOTAL 28 23 - 31 mmol/L [facility] SERVICES AGAP 2 2 - 16 [facility] SERVICES BUN 30 (H) 7 - 23 mg/dL [facility] SERVICES GLUCOSE 166 (H) 70 - 110 mg/dL [facility] SERVICES CREATININE 0.37 (L) 0.60 - 1.25 [facility] mg/dL SERVICES TOTAL BILI 0.6 0.1 - 1.1 mg/dL [facility] SERVICES CALCIUM 6.6 (L) 8.6 - 10.6 [facility] mg/dL SERVICES T PROTEIN 4.1 (L) 6.3 - 8.2 g/dL [facility] SERVICES ALBUMIN 1.6 (L) 3.5 - 5.0 g/dL [facility] SERVICES ALK PHOS 254 (H) 34 - 122 U/L [facility] SERVICES ALTv 53 (H) 5 - 50 U/L [facility] SERVICES AST(SGOT) 49 (H) 13 - 40 U/L [facility] SERVICES eGFR Calculation 266.3 mL/min/1.73m2 [facility] (Non- SERVICES [place]) eGFR Calculation 322.8 mL/min/1.73m2 [facility] () SERVICES Specimen Blood - ARTERIAL Narrative Performed At Association of Glomerular Filtration Rate (GFR) and St aging [facility] SERVICES of Kidney Disease* + + [...] . Performing Organization Address City/State/Zipcode Phone Number [facility] CLIA: [id number] [place] [address] [phone] 301 [facility] MAGNESIUM (11/05/2020 5:27 AM SODA MAKER) Pathologist Sig nature MAGNESIUM 1.9 1.7 - 2.4 mg/dL [facility] SERVICES Specimen Blood - ARTERIAL Performing Organization Address City/[facility]/Zipcode Phone Number [facility] CLIA: [id number] [place] [address] [place] [address] BLOOD CULTURE SCREEN (11/05/2020 5:23 AM SODA MAKER) Blood No organisms isolated No growth [facility] Culture-Aerobic Comment: SERVICES Previous preliminary verifie d result was Culture In Progress on 11/05/2020 at 1001 SODA MAKER Previous preliminary verifie d result was No growth at 24 hours on 11/06/2020 at 0701 SODA MAKER Previous preliminary verifie d result was No growth at 48 hours on 11/07/2020 at 0701 SODA MAKER Previous preliminary verifie d result was No growth at 72 hours on 11/08/2020 at 0701 SODA MAKER Blood No organisms isolated No growth [facility] Culture-Anaerobic Comment: SERVICES Previous preliminary verifie d result was Culture In Progress on 11/05/2020 at 1001 SODA MAKER Previous preliminary verifie d result was No growth at 24 hours on 11/06/2020 at 0701 SODA MAKER Previous preliminary verifie d result was No growth at 48 hours on 11/07/2020 at 0701 SODA MAKER Previous preliminary verifie d result was No growth at 72 hours on 11/08/2020 at 0701 SODA MAKER Specimen Blood - VENOUS Performing Organization Address City/[facility]/Zipcode Phone Number [facility] CLIA: [id number] [place] [address] [place] [address] Acute Care Arterial Blood Gas. (11/05/2020 5:18 AM SODA MAKER) Pathologist Sig nature PH 7.53 (H) 7.35 - 7.45 [facility] PCO2 33 (L) 35 - 45 mmHg [facility] PO2 157 (H) 80 - 100 mmHg [facility] HCO3 27 (H) 22 - 26 mEq/L [facility] SERVICES BE 4.5 (H) -3.0 - 3.0 mEq/L [facility] SERVICES Specimen Blood Performing Organization Address City/State/Zipcode Phone Number [facility] CLIA: [id number] [place] [address] [place] [address] POCT GLUCOSE (AUTOMATED) (11/04/2020 11:58 PM SODA MAKER) Pathologist Sig nature POCT GLU 150 (H) 70 - 110 mg/dL [facility] Specimen Blood Performing Organization Address City/[facility] Phone Number [facility] CLIA: [id number] [place] [address] [place] [address] BLOOD CULTURE SCREEN (11/04/2020 1:33 PM SODA MAKER) Blood No organisms isolated No growth [facility] Culture-Aerobic Comment: SERVICES Previous preliminary verifie d result was Culture In Progress on 11/04/2020 at 2302 SODA MAKER Previous preliminary verifie d result was No growth at 24 hours on 11/05/2020 at 2000 SODA MAKER Previous preliminary verifie d result was No growth at 48 hours on 11/06/2020 at 2000 SODA MAKER Previous preliminary verifie d result was No growth at 72 hours on 11/07/2020 at 2002 SODA MAKER Blood No organisms isolated No growth [facility] Culture-Anaerobic Comment: SERVICES Previous preliminary verifie d result was Culture In Progress on 11/04/2020 at 2302 SODA MAKER Previous preliminary verifie d result was No growth at 24 hours on 11/05/2020 at 2000 SODA MAKER Previous preliminary verifie d result was No growth at 48 hours on 11/06/2020 at 2000 SODA MAKER Previous preliminary verifie d result was No growth at 72 hours on 11/07/2020 at 2002 SODA MAKER Specimen Blood - ARTERIAL Performing Organization Address City/[facility]/Zipcode Phone Number [facility] CLIA: [id number] [place] [address] [place] [address] MAGNESIUM (11/04/2020 6:02 AM SODA MAKER) Pathologist Sig nature MAGNESIUM 2.4 1.7 - 2.4 mg/dL [facility] SERVICES Specimen Blood - ARM, RIGHT Performing Organization Address City/State/Zipcode Phone Number [facility] CLIA: [id number] [place] [address] [place] [address] COMP. METABOLIC PANEL (18834) (11/04/2020 6:02 AM SODA MAKER) NA 139 135 - 145 [facility] mmol/L SERVICES K 3.9 3.5 - 5.0 [facility] mmol/L SERVICES CL 108 98 - 108 mmol/L [facility] SERVICES CO2 TOTAL 30 23 - 31 mmol/L [facility] SERVICES AGAP 1 (L) 2 - 16 [facility] SERVICES BUN 26 (H) 7 - 23 mg/dL [facility] SERVICES GLUCOSE <20 (LL) 70 - 110 mg/dL [facility] SERVICES CREATININE 0.32 (L) 0.60 - 1.25 [facility] mg/dL SERVICES TOTAL BILI 0.6 0.1 - 1.1 mg/dL [facility] SERVICES CALCIUM 6.9 (L) 8.6 - 10.6 [facility] mg/dL SERVICES T PROTEIN 4.4 (L) 6.3 - 8.2 g/dL [facility] SERVICES ALBUMIN 1.8 (L) 3.5 - 5.0 g/dL [facility] SERVICES ALK PHOS 261 (H) 34 - 122 U/L [facility] SERVICES ALTv 54 (H) 5 - 50 U/L [facility] SERVICES AST(SGOT) 56 (H) 13 - 40 U/L [facility] SERVICES eGFR Calculation 314.9 mL/min/1.73m2 [facility] (Non- SERVICES [place]) eGFR Calculation 381.7 mL/min/1.73m2 [facility] () SERVICES Specimen Blood - ARM, RIGHT Narrative Performed At Association of Glomerular Filtration Rate (GFR) and St aging [facility] SERVICES of Kidney Disease* + + [...] in imaging tests) . Performing Organization Address City/[facility] Phone Number [facility] CLIA: [id number] [place] [address] [phone] 301 [facility] PHOSPHORUS (11/04/2020 6:02 AM SODA MAKER) Pathologist Sig nature PHOSPHORUS 4.4 2.5 - 5.0 mg/dL [facility] SERVICES Specimen Blood - ARM, RIGHT Performing Organization Address [facility] Phone Number [facility] CLIA: [id number] [place] [address] [place] [address] Acute Care Arterial Blood Gas. (11/04/2020 6:02 AM SODA MAKER) Pathologist Sig nature PH 7.53 (H) 7.35 - 7.45 [facility] PCO2 32 (L) 35 - 45 mmHg [facility] PO2 187 (H) 80 - 100 mmHg [facility] HCO3 26 22 - 26 mEq/L [facility] SERVICES BE 3.7 (H) -3.0 - 3.0 mEq/L [facility] Specimen Blood - ARM, RIGHT Performing Organization Address [facility] Phone Number [facility] CLIA: [id number] [place] [address] [place] [address] CMV BY PCR (11/04/2020 6:02 AM SODA MAKER) Specimen Tested Plasma [facility] CMV PCR - log IU/mL 4.3 (H) <2.5 log IU/mL [facility] CMV PCR - IU/mL 21,786 (H) <300 IU/mL [facility] CMV PCR - log 4.6 (H) <2.7 log [facility] copies/mL copies/mL SERVICES CMV PCR - copies/mL 37,472 (H) <516 copies/mL [facility] Specimen Blood - VENOUS Narrative Performed At Test Information: Cytomegalovirus (CMV) DNA, Quantitation. [facility] The quantitative range of this [...] and its performance characteristics determin ed by [facility] Clinical Microbiology Laboratory. It has not been cleared or approved by the U.S. Food and Drug Administration; however, the FDA has determined that s [facility] clearance or approval is not necessary. This test is u sed for clinical purposes. It should not be regarded as investigational or for research. This laboratory is certified under the Clinical Laboratory Improvement Amendments of 1988 (CLIA-88) as qualified to perform h igh complexity clinical laboratory testing. Performing Organization Address City/State/Zipcode Phone Number [facility] CLIA: [id number] [place], [place] [address] [address] [place], [place] [address]vd CBC WITH DIFF (11/04/2020 6:02 AM SODA MAKER) WBC 5.40 4.20 - 10.70 [facility] 10*3/L SERVICES RBC 3.15 (L) 4.26 - 5.52 [facility] 10*6/L SERVICES HGB 8.8 (L) 12.2 - 16.4 [facility] g/dL SERVICES HCT 25.7 (L) 38.4 - 49.3 % [facility] MCV 81.6 (L) 81.7 - 95.6 fL [facility] MCH 27.9 26.1 - 32.7 pg [facility] MCHC 34.2 31.2 - 35.0 [facility] g/dL SERVICES RDW-SD 41.5 38.5 - 51.6 fL [facility] RDW-CV 14.3 12.1 - 15.4 % [facility] PLT 100 (L) 150 - 328 [facility] 10*3/L SERVICES MPV 12.2 9.8 - 13.0 fL [facility] NRBC/100 WBC 0.0 0.0 - 10.0 /100 [facility] WBCs SERVICES NRBC x10^3 <0.01 10*3/L [facility] GRAN MAT (NEUT) % 72.8 % [facility] IMM GRAN % 0.60 % [facility] LYMPH % 22.0 % [facility] MONO % 4.6 % [facility] EOS % 0.0 % [facility] BASO % 0.0 % [facility] GRAN MAT x10^3(ANC) 3.93 1.99 - 6.95 [facility] 10*3/uL SERVICES IMM GRAN x10^3 0.03 0.00 - 0.06 [facility] 10*3/uL SERVICES LYMPH x10^3 1.19 1.09 - 3.23 [facility] 10*3/uL SERVICES MONO x10^3 0.25 (L) 0.36 - 1.02 [facility] 10*3/uL SERVICES EOS x10^3 <0.03 (L) 0.06 - 0.53 [facility] 10*3/uL SERVICES BASO x10^3 <0.03 0.01 - 0.09 [facility] 10*3/uL SERVICES ACANTHOCYTES 1+ 1+ [facility] SCHISTOCYTES 1+ (A) [facility] Specimen Blood - ARM, RIGHT Performing Organization Address City/State/Zipcode Phone Number [facility] CLIA: [id number] [place] [address] [place] [address] CT THORAX W CONTRAST (11/03/2020 6:07 PM SODA MAKER) Specimen Impressions Performed At PACS/VR/DOSE 1. Worsening severe multifocal pneumonia with features suspicious for atypical infection, such as viral. 2. Unchanged moderate layering pleural e ffusions. 3. Stable appearance of the esophagus, in keeping with the patient's known achalasia. 4. Large volume of upper abdominal ascit es and cholelithiasis, unchanged IBlanche MD., have reviewed this study and agree with the above report. Narrative Performed At This result has an attachment that is no t available. PROCEDURE: CT CHEST WITH CONTRAST - CHEST PROTOCOL PACS/VR/DOSE CLINICAL INDICATION: possible disseminated CMV Comparison: Chest radiograph dated 11/02/2020, CT chest dated 10/31/2020 TECHNIQUE: Volumetric images of the chest were acquire d (from lung apices to bases) following administration of intravenous cont rast. Images were reconstructed at 1.25 mm slice thickness. MIP axial im ages, coronal and sagittal reformats were also submitted for interpretat ion Axial MIPs and coronal and sagittal MPR images were generated and rev iewed.. FINDINGS: Devices: Left PICC terminates in the distal SVC. Endot preet tube terminates 4 cm from the geno LUNGS AND PLEURA: The lung volumes are within normal l imits. Bilateral moderate volume pleural effusions with overlying atele ctasis is grossly unchanged in size. Since the previous CT of the chest, worsening bilateral coordination groundglass opacities as well as patchy s omewhat nodular predominantly peribronchovascular consolidative opacit ies in the aerated lungs. Mild central bronchial wall thickening. LYMPH NODES: No intrathoracic lymphadenopathy. MEDIASTINUM AND LOWER NECK: Secretions in the upper tr achea and layering in the left mainstem bronchus, likely secondary to patien t's intubation status. Significant dilatation of the esophagus which is fluid-filled. Mild mass effect over the left atrium is unchanged. No disc rete thyroid nodules. HEART AND GREAT VESSELS: The heart is normal in size. Small pericardial effusion The RV to LV is normal. The thoracic aorta is normal in caliber. The pulmonary trunk is normal in caliber. VISUALIZED UPPER ABDOMEN: Large volume of upper abdomi nal ascites. Distended gallbladder with cholelithiasis. Gastrostomy tube in place. Mixing artifact in the portal vein and visualized SMV. OSSEOUS STRUCTURES AND SOFT TISSUES: Severe atrophy of the trunk musculature and cachexia. No focal osseous lesions are seen. Procedure Note [facility], Radiant Results Inft User - 2020 10:54 AM SODA MAKER PROCEDURE: CT CHEST WITH CONTRAST - CHEST PROTOCOL CLINICAL INDICATION: possible disseminat ed CMV Comparison: Chest radiograph dated 2020, CT chest dated 10/31/2020 TECHNIQUE: Volumetric images of the ches t were acquired (from lung apices to bases) following administration of in travenous contrast. Images were reconstructed at 1.25 mm slice thickness . MIP axial images, coronal and sagittal reformats were also submitted f or interpretation Axial MIPs and coronal and sagittal MPR images were gen erated and reviewed.. FINDINGS: Devices: Left PICC terminates in the dis kevin SVC. Endotracheal tube terminates 4 cm from the geno LUNGS AND PLEURA: The lung volumes are w ithin normal limits. Bilateral moderate volume pleural effusions with o verlying atelectasis is grossly unchanged in size. Since the previous CT of the chest, worsening bilateral coordination groundglass opacities as we ll as patchy somewhat nodular predominantly peribronchovascular consol idative opacities in the aerated lungs. Mild central bronchial wall thick ening. LYMPH NODES: No intrathoracic lymphadeno anneliese. MEDIASTINUM AND LOWER NECK: Secretions i n the upper trachea and layering in the left mainstem bronchus, likely secon albert to patient's intubation status. Significant dilatation of the es ophagus which is fluid-filled. Mild mass effect over the left atrium is unch anged. No discrete thyroid nodules. HEART AND GREAT VESSELS: The heart is no rmal in size. Small pericardial effusion The RV to LV is normal. The tho racic aorta is normal in caliber. The pulmonary trunk is normal in caliber . VISUALIZED UPPER ABDOMEN: Large volume o f upper abdominal ascites. Distended gallbladder with cholelithiasi s. Gastrostomy tube in place. Mixing artifact in the portal vein and v isualized SMV. OSSEOUS STRUCTURES AND SOFT TISSUES: Sev ere atrophy of the trunk musculature and cachexia. No focal osseo us lesions are seen. IMPRESSION 1. Worsening severe multifocal pneumonia with features suspicious for atypical infection, such as viral. 2. Unchanged moderate layering pleural e ffusions. 3. Stable appearance of the esophagus, i n keeping with the patient's known achalasia. 4. Large volume of upper abdominal ascit es and cholelithiasis, unchanged I, Blanche Lyman MD., have revie wed this study and agree with the above report. Performing Organization Address City/State/Zipcode Phone Number PACS/VR/DOSE Acute Care Arterial Blood Gas. (11/03/2020 3:19 PM SODA MAKER) Pathologist Sig nature PH 7.57 (H) 7.35 - 7.45 [facility] PCO2 32 (L) 35 - 45 mmHg [facility] PO2 117 (H) 80 - 100 mmHg [facility] HCO3 29 (H) 22 - 26 mEq/L [facility] BE 6.1 (H) -3.0 - 3.0 mEq/L [facility] Specimen Blood - LINE, ARTERIAL Performing Organization Address [facility] Phone Number [facility] CLIA: [id number] [place] [address] [place] [address] SPUTUM CULTURE (11/03/2020 8:02 AM SODA MAKER) SPUTUM CULTURE 1+ Zari [facility] tropicalisComment: SERVICES Previous preliminary verified result was Yeast on 11/04/2020 at 0916 SODA MAKER Gram stain Occasional (Rare) Yeast, [facility] budding SERVICES Gram stain Occasional (Rare) [facility] Polymorphonuclear SERVICES leukocytes Gram stain Occasional (Rare) [facility] Epithelial cells SERVICES Specimen Sputum - ENDOTRACHEAL Performing Organization Address [facility] Phone Number [facility] CLIA: [id number] [place], [place] [id number] [address] [place] [address] Acute Care Arterial Blood Gas. (11/03/2020 7:55 AM SODA MAKER) Pathologist Sig nature PH 7.60 (H) 7.35 - 7.45 [facility] PCO2 26 (L) 35 - 45 mmHg [facility] PO2 183 (H) 80 - 100 mmHg [facility] HCO3 26 22 - 26 mEq/L [facility] BE 4.3 (H) -3.0 - 3.0 mEq/L [facility] Specimen Blood Performing Organization Address City/State/Zipcode Phone Number [facility] CLIA: [id number] [place] [address] [place] [address] POCT GLUCOSE (AUTOMATED) (11/03/2020 5:45 AM SODA MAKER) Pathologist Sig nature POCT GLU 83 70 - 110 mg/dL [facility] Specimen Blood Performing Organization Address City/[facility]/Zipcode Phone Number [facility] CLIA: [id number] [place] [address] [place] [address] MAGNESIUM (11/03/2020 3:22 AM SODA MAKER) Pathologist Sig nature MAGNESIUM 2.0 1.7 - 2.4 mg/dL [facility] Specimen Blood - ARTERIAL Performing Organization Address City/[facility]/Zipcode Phone Number [facility] CLIA: [id number] [place] [address] [place] [address] COMP. METABOLIC PANEL (59770) (11/03/2020 3:22 AM SODA MAKER) NA 139 135 - 145 [facility] mmol/L SERVICES K 3.4 (L) 3.5 - 5.0 [facility] mmol/L SERVICES CL 107 98 - 108 mmol/L [facility] CO2 TOTAL 30 23 - 31 mmol/L [facility] AGAP 2 2 - 16 [facility] BUN 18 7 - 23 mg/dL [facility] GLUCOSE 38 (LL) 70 - 110 mg/dL [facility] SERVICES CREATININE 0.26 (L) 0.60 - 1.25 [facility] mg/dL SERVICES TOTAL BILI 0.7 0.1 - 1.1 mg/dL [facility] CALCIUM 7.2 (L) 8.6 - 10.6 [facility] mg/dL SERVICES T PROTEIN 4.5 (L) 6.3 - 8.2 g/dL [facility] ALBUMIN 1.8 (L) 3.5 - 5.0 g/dL [facility] ALK PHOS 259 (H) 34 - 122 U/L [facility] ALTv 51 (H) 5 - 50 U/L [facility] SERVICES AST(SGOT) 44 (H) 13 - 40 U/L [facility] SERVICES eGFR Calculation 400.2 mL/min/1.73m2 [facility] (Non- SERVICES [place]) eGFR Calculation 485.0 mL/min/1.73m2 [facility] () SERVICES Specimen Blood - ARTERIAL Narrative Performed At Association of Glomerular Filtration Rate (GFR) and St aging [facility] SERVICES of Kidney Disease* + + [...] in imaging tests) . Performing Organization Address [facility]/Zipcode Phone Number [facility] CLIA: [id number] [place] [address] [phone] [address] [facility] PHOSPHORUS (11/03/2020 3:22 AM SODA MAKER) Pathologist Sig nature PHOSPHORUS 3.0 2.5 - 5.0 mg/dL [facility] Specimen Blood - ARTERIAL Performing Organization Address [facility] Phone Number [facility] CLIA: [id number] [place] [address] [phone] [address] [facility] CMV BY PCR (11/03/2020 3:22 AM SODA MAKER) Specimen Tested Plasma [facility] CMV PCR - log IU/mL 4.4 (H) <2.5 log IU/mL [facility] CMV PCR - IU/mL 23,884 (H) <300 IU/mL [facility] CMV PCR - log 4.6 (H) <2.7 log [facility] copies/mL copies/mL SERVICES CMV PCR - copies/mL 41,080 (H) <516 copies/mL [facility] SERVICES Specimen Blood - ARTERIAL Narrative Performed At Test Information: Cytomegalovirus (CMV) DNA, Quantitation. [facility] The quantitative range of this [...] and its performance characteristics determin ed by [facility] Clinical Microbiology Laboratory. It has not been cleared or approved by the U.S. Food and Drug Administration; however, the FDA has determined that s [facility] clearance or approval is not necessary. This test is u sed for clinical purposes. It should not be regarded as investigational or for research. This laboratory is certified under the Clinical Laboratory Improvement Amendments of 1988 (CLIA-88) as qualified to perform [facility] clinical laboratory testing. Performing Organization Address City/State/[facility] Phone Number [facility] CLIA: [id number] [place] [address] [place] [address] CBC WITH DIFF (11/03/2020 3:22 AM SODA MAKER) WBC 3.18 (L) 4.20 - 10.70 [facility] 10*3/L SERVICES RBC 2.87 (L) 4.26 - 5.52 [facility] 10*6/L SERVICES HGB 8.1 (L) 12.2 - 16.4 [facility] g/dL SERVICES HCT 22.8 (L) 38.4 - 49.3 % [facility] SERVICES MCV 79.4 (L) 81.7 - 95.6 [facility] fL SERVICES MCH 28.2 26.1 - 32.7 [facility] pg SERVICES MCHC 35.5 (H) 31.2 - 35.0 [facility] g/dL SERVICES RDW-SD 39.0 38.5 - 51.6 [facility] fL SERVICES RDW-CV 13.7 12.1 - 15.4 % [facility] SERVICES PLT 56 (L) 150 - 328 [facility] 10*3/L SERVICES MPV 12.9 9.8 - 13.0 fL [facility] SERVICES IPF % 7.6Comment: Platelet 1.2 - 10.7 % [facility] count measured by SERVICES fluorescence method. NRBC/100 WBC 0.6 0.0 - 10.0 [facility] /100 WBCs SERVICES NRBC x10^3 0.02 10*3/L [facility] SERVICES SEG % 45 33 - 76 % [facility] SERVICES BAND % 15 (H) 0 - 1 % [facility] SERVICES LYMPH % 37 14 - 54 % [facility] SERVICES MONO % 3 0 - 4 % [facility] SERVICES ANC 1.91 (L) 1.99 - 6.95 [facility] 10*3/uL SERVICES TOXIC CHANGES Present (A) [facility] SERVICES GIANT PLATELETS Present (A) (none) [facility] Specimen Blood - ARTERIAL Performing Organization Address City/[facility]/Zipcode Phone Number [facility] CLIA: [id number] [place] [address] [place] [address] Acute Care Arterial Blood Gas. (11/02/2020 4:12 PM SODA MAKER) Pathologist Sig nature PH 7.56 (H) 7.35 - 7.45 [facility] PCO2 29 (L) 35 - 45 mmHg [facility] PO2 135 (H) 80 - 100 mmHg [facility] HCO3 26 22 - 26 mEq/L [facility] BE 3.7 (H) -3.0 - 3.0 mEq/L [facility] Specimen Blood - LINE, ARTERIAL Performing Organization Address City/State/Zipcode Phone Number [facility] CLIA: [id number] [place] [address] [place] [address] BLOOD CULTURE WORKUP (11/02/2020 10:21 AM SODA MAKER) Blood Culture Zari albicans [facility] Workup SERVICES Blood Culture Zari glabrata [facility] Workup SERVICES Gram stain Isolated from [facility] aerobic bottle SERVICES Yeast, budding with pseudohyphae Gram stain Isolated from [facility] anaerobic bottle SERVICES Yeast, buddingComment: This is an appended report. These results have been appended to a previously preliminary verified report. Specimen Blood - VENOUS Narrative Performed At Preferred therapy is fluconazole for Zari albicans [facility] bloodstream infections. Infectious Diseases consultation is charan mmended. Please contact the Antimicrobial Stewardship Program w ith questions. ASP Pager: [phone] Organism Antibiotic Method Susceptibility Zari albicans Anidulafungin 0.06: Susceptib le Zari albicans Micafungin 0.015: Suscepti ble Zari albicans Caspofungin 0.06: Susceptib le Zari albicans Voriconazole 0.015: Suscepti ble Zari albicans Fluconazole 0.5: Susceptibl e Comment: This assay is performed with the [employer] Ye[employer] YO9 Plate. The minimal inhibitory concentration (TIM) in g/mL and the corresponded interpretation according to the CLSI M27-S4 document are reported. The test was developed and its performan ce characteristics determined by [facility] Clinical Microbiology Laboratory. It has not been cleared or approved by the US Food and Drug Administration (FDA). FDA does not require this test to go through pre market FDA review. This test is used for clinical purposes. It should not be regarded as investigational or for research. This laboratory is certified under the C linical Laboratory Improvement Amendment s (CLIA) as qualified to perform high complexity clinical laboratory testing. Zari glabrata Anidulafungin 0.06: Susceptib le Zari glabrata Micafungin 0.015: Suscepti ble Zari glabrata Caspofungin 0.12: Susceptib le Zari glabrata Voriconazole 1.0: No Interpr etation Zari glabrata Fluconazole 32: Susceptible -dose dependent Comment: This assay is performed with the [employer] YO9 Plate. The minimal inhibitory concentration (TIM) in g/mL and the corresponded interpretation according to the CLSI M27-S4 document are reported. The test was developed and its performan ce characteristics determined by [facility] Clinical Microbiology Laboratory. It has not been cleared or approved by the US Food and Drug Administration (FDA). FDA does not require this test to go through pre market FDA review. This test is used for clinical purposes. It should not be regarded as investigational or for research. This laboratory is certified under the [facility] Laboratory Improvement Amendment s (CLIA) as qualified to perform high complexity clinical laboratory testing. Performing Organization Address City/[facility] Phone Number [facility] CLIA: [id number] [place] [address] [place] [address] Blood Culture - Peripheral Vein # 2 (11/02/2020 10:21 AM SODA MAKER) Blood Culture positive. See Blood Culture Workup for additional information. (AA) No growth [facility] Culture-Aerobic Comment: SERVICES Previous preliminary verifie d result was Culture In Progress on 11/02/2020 at 1401 SODA MAKER Previous preliminary verifie d result was No growth at 24 hours on 11/03/2020 at 1101 SODA MAKER Blood Culture positive. See Blood Culture Workup for additional information. (AA) No growth [facility] Culture-Anaerobic Comment: SERVICES Previous preliminary verifie d result was Culture In Progress on 11/02/2020 at 1401 SODA MAKER Previous preliminary verifie d result was No growth at 24 hours on 11/03/2020 at 1101 SODA MAKER Specimen Blood - VENOUS Performing Organization Address City/[facility]/Zipcode Phone Number [facility] CLIA: [id number] [place] [address] [place] [address] MAGNESIUM (11/02/2020 8:40 AM SODA MAKER) Pathologist [facility] MAGNESIUM 1.5 (L) 1.7 - 2.4 mg/dL [facility] SERVICES Specimen Blood - LINE, ARTERIAL Performing Organization Address City/[facility] Phone Number [facility] CLIA: [id number] [place] [address] [place] [address] MRSA / MSSA Screen by PCR, Nares (11/02/2020 8:40 AM SODA MAKER) Pathologist Sig nature MRSA Screen by PCR, Negative Negative [facility] Nares SERVICES MSSA Screen by PCR, Positive (A) Negative [facility] Nares SERVICES MRSA/MSSA Positive? Yes (A) No [facility] SERVICES Specimen Swab - NARES, BOTH SIDES Narrative Performed At A positive test result does not necessarily indicate t he [facility] presence of viable organism. Performing Organization Address City/[facility] Phone Number [facility] CLIA: [id number] [place] [address] [place] [address] GAMMA GLUTAMYLTRANSFERASE (11/02/2020 8:40 AM SODA MAKER) Pathologist Sig nature GGT 151 (H) 13 - 58 U/L [facility] SERVICES Specimen Blood - LINE, ARTERIAL Performing Organization Address [facility] [place] Phone Number [facility] SERVICES CLIA: [id number] [place] [address] [place] [address] MITOCHONDRIAL M2 AB, IGG (11/02/2020 8:40 AM SODA MAKER) Pathologist Sig nature AMA 16.6 0.0 - 24.9 Units ARUP Comment: REFERENCE INTERVAL: Mitochondrial (M2) Antibody, IgG 20.0 Units or less ......... Negative 20.1 - 24.9 Units........... Equivocal 25.0 Units or greater....... Positive Anti-mitochondrial antibodies (AMA) are thought to be present in 90-95% of patients with primary biliary cholangitis (P BC). However, the frequency of detected antibodies may be c ohort or assay dependent, as lower sensitivities have been repo rted. Not all PBC patients are positive for AMA; some patients m ay be positive for SP100 and/or GP210 antibodies. A negative result does not rule out PBC. Performed By: [employer] [address] [place] [address] Gas Pumper: Karley Ramirez MD Specimen Blood - LINE, ARTERIAL Performing Organization Address City/State/Zipcode Phone Number [facility] [facility] [place] [address] CMV BY PCR (11/02/2020 8:39 AM SODA MAKER) Specimen Tested Plasma [facility] CMV PCR - log IU/mL 4.4 (H) <2.5 log IU/mL [facility] CMV PCR - IU/mL 23,560 (H) <300 IU/mL [facility] CMV PCR - log 4.6 (H) <2.7 log [facility] LABORATORY copies/mL copies/mL SERVICES CMV PCR - copies/mL 40,523 (H) <516 copies/mL [facility] Specimen Blood - VENOUS Narrative Performed At Test Information: Cytomegalovirus (CMV) DNA, Quantitation. [facility] The quantitative range of this assay [...] and its performance characteristics determin ed by [facility] Clinical Microbiology Laboratory. It has not been cleared or approved by the U.S. Food and Drug Administration; however, the FDA has determined that s [facility] clearance or approval is not necessary. This test is u sed for clinical purposes. It should not be regarded as investigational or for research. This laboratory is certified under the Clinical Laboratory Improvement Amendments of 1988 (CLIA-88) as qualified to perform h igh complexity clinical laboratory testing. Performing Organization Address City/State/Zipcode Phone Number [facility] CLIA: [id number] [place] [address] [place] [address] LAB ONLY COVID INTERPRETATION (11/02/2020 8:13 AM SODA MAKER) Pathologist [facility] COVID DMT Interpretation/Recommendations: [facility] LABO RATORY Interpretation SERVICES Molecular NAAT Tests [...] These interpretation comment s are based upon all COVID-19 testing the patient has had at [facility], including molecular NAAT testing (more commonly known as PCR testing and Rapid ID Now testing) and antibody testing. It does not take i nto account any testing that a patient has had outside of the [facility] medical record. COVID Results SARS-CoV-2 NAAT (no units) [facility] LABORATO RY Date Value SERVICES 11/02/2020 Not Detected 09/27/2020 Not Detected SARS-CoV-2 Rapid ID NOW (no units) Date Value 11/02/2020 Not Detected 10/26/2020 Not Detected 10/20/2020 Not Detected 10/10/2020 Not Detected 10/02/2020 Not Detected 09/26/2020 Not Detected 09/20/2020 Positive (A) 08/28/2020 Not Detected 08/23/2020 Not Detected CoV-2 IgG (no units) Date Value 09/27/2020 Positive (A) Specimen Swab - NASOPHARYNGEAL SWAB Performing Organization Address City/State/Zipcode Phone Number [facility] CLIA: [id number] [place] [address] [place] [address] CORONAVIRUS COVID-19 TESTING (11/02/2020 8:13 AM SODA MAKER) Sylvia andres SARS-CoV-2 NAAT Not Detected Not Detected [facility] Specimen Swab - NASOPHARYNGEAL SWAB Narrative Performed At [facility] SARS-CoV-2 Assay is a real-time RT-PCR test [facility] intended for the qualitative detection of RNA from SARS-CoV-2 from nasopharyngeal (INSPECTION ENGINEER) specimens. It is u sed under Emergency Use Authorization (EUA) by FDA. A positive result is indicative of the presence of SARS-CoV-2 RNA. Clinical correlation with patient hi story and other diagnostic information is necessary to deter mine patient infection status. A negative (Not Detected) result does not preclude SARS-CoV-2 infection. Clinical correlation with patien t history and other diagnostic information should be use d in patient management decisions. Invalid: Please collect a new specimen for repeat olimpia ent testing if clinically indicated. Performing Organization Address [facility] Phone Number [facility] CLIA: [id number] [place] [address] [place] [address] BLOOD CULTURE WORKUP (11/02/2020 8:07 AM SODA MAKER) Blood Culture Zari [facility] Workup albicansComment: For SERVICES susceptibility results, refer to culture # - [id number] Blood Culture Zari [facility] Workup glabrataComment: For SERVICES susceptibility results, refer to culture # - [id number] Gram stain Isolated from aerobic [facility]OR[facility] bottle Yeast, budding SERVICES with pseudohyphaeComment: This is an appended report. These results have been appended to a previously preliminary verified report. Gram stain Isolated from [facility]OR[facility] anaerobic bottle SERVICES Yeast, buddingComment: Corrected result: Previously reported as Yeast, budding on 11/04/2020 at 0734 SODA MAKER. Specimen Blood - VENOUS Narrative Performed At [facility] therapy is fluconazole for Zari albicans [facility] SERVICES bloodstream infections. Infectious Diseases consultation is charan mmended. Please contact the Antimicrobial Stewardship Program w ith questions. ASP Pager: [phone] Performing Organization Address City/[facility] Phone Number [facility] CLIA: [id number] [place] [address] [place] [address] Blood Culture - Peripheral Vein (11/02/2020 8:07 AM SODA MAKER) Blood Culture positive. See Blood Culture Workup for additional information. (AA) No growth [facility] Culture-Aerobic Comment: SERVICES Previous preliminary verifie d result was Culture In Progress on 11/02/2020 at 1401 SODA MAKER Previous preliminary verifie d result was No growth at 24 hours on 11/04/2020 at 0747 SODA MAKER Blood Culture positive. See Blood Culture Workup for additional information. (AA) No growth [facility] Culture-Anaerobic Comment: SERVICES Previous preliminary verifie d result was Culture In Progress on 11/02/2020 at 1401 SODA MAKER Previous preliminary verifie d result was No growth at 24 hours on 11/03/2020 at 1101 SODA MAKER Specimen Blood - VENOUS Performing Organization Address City/State/Zipcode Phone Number [facility] CLIA: [id number] [place] [address] [place] [address] XR CHEST 1 VW (11/02/2020 8:00 AM SODA MAKER) Specimen Impressions Performed At PACS/VR/DOSE Interval intubation with endotracheal tu be tip projects 3.47 m above the geno. Bilateral patchy lung opacities suggest ARDS. Preliminary Report Dictated by Resident: Joseph Nolasco I, Sienna Mcmanus MD., have reviewe d this study and agree with the above report. Narrative Performed At This result has an attachment that is no t available. EXAM: XR CHEST 1 VW 11/02/2020 7:50 AM PACS/VR/DOSE HISTORY: 35 years-old Male with post intubation . TECHNIQUE: Portable AP view of the chest. COMPARISON: CXR 11/02/2020 3:01 AM. FINDINGS: Lines and tubes: Interval intubation with endotracheal tube tip projecting 3.4 cm above the geno. Similar appearance of left-si ded PICC tip projecting at the mid to distal SVC. Cardiomediastinal: The cardiomediastinal silhouette is unchanged. Dilated esophagus is redemonstrated. Lungs and pleura: Similar appearance of bilateral hazy interstitial opacities with bilateral mild pleural effusions. Musculoskeletal: No acute skeletal abnormality. Procedure Note [facility], Radiant Results Inft User - 2020 1:19 PM SODA MAKER EXAM: XR CHEST 1 VW 11/02/2020 7:50 AM HISTORY: 35 years-old Male with post int ubation . TECHNIQUE: Portable AP view of the chest . COMPARISON: CXR 11/02/2020 3:01 AM. FINDINGS: Lines and tubes: Interval intubation wit h endotracheal tube tip projecting 3.4 cm above the geno. Similar appeara nce of left-sided PICC tip projecting at the mid to distal SVC. Cardiomediastinal: The cardiomediastinal silhouette is unchanged. Dilated esophagus is redemonstrated. Lungs and pleura: Similar appearance of bilateral hazy interstitial opacities with bilateral mild pleural ef fusions. Musculoskeletal: No acute skeletal abnor mality. IMPRESSION Interval intubation with endotracheal tu be tip projects 3.47 m above the geno. Bilateral patchy lung opacities suggest ARDS. Preliminary Report Dictated by Resident: Joseph Nolasco I, Sienna Mcmanus MD., have reviewed this study and agree with the above report. Performing Organization Address City/[facility]/Zipcode Phone Number PACS/VR/DOSE AC ABG + LACTIC ACID (11/02/2020 7:38 AM SODA MAKER) Pathologist Sig nature PH 7.45 7.35 - 7.45 [facility] PCO2 39 35 - 45 mmHg [facility] PO2 116 (H) 80 - 100 mmHg [facility] HCO3 27 (H) 22 - 26 mEq/L [facility] BE 2.8 -3.0 - 3.0 mEq/L [facility] LACTIC ACID 1.58 mmol/L [facility] SERVICES Specimen Blood - ARTERIAL Performing Organization Address [facility] Phone Number [facility] CLIA: [id number] [place] [address] [place] [address] PHOSPHORUS (11/02/2020 7:37 AM SODA MAKER) Pathologist Sig nature PHOSPHORUS 3.1 2.5 - 5.0 mg/dL [facility] Specimen Blood - LINE, ARTERIAL Performing Organization Address [facility] Phone Number [facility] CLIA: [id number] [place] [address] [place] [address] CBC WITH DIFF (11/02/2020 7:37 AM SODA MAKER) WBC 3.69 (L) 4.20 - 10.70 [facility] 10*3/L SERVICES RBC 3.55 (L) 4.26 - 5.52 [facility] 10*6/L SERVICES HGB 10.0 (L) 12.2 - 16.4 [facility] g/dL SERVICES HCT 28.8 (L) 38.4 - 49.3 % [facility] MCV 81.1 (L) 81.7 - 95.6 [facility] fL SERVICES MCH 28.2 26.1 - 32.7 [facility] pg SERVICES MCHC 34.7 31.2 - 35.0 [facility] g/dL SERVICES RDW-SD 39.4 38.5 - 51.6 [facility] fL SERVICES RDW-CV 13.4 12.1 - 15.4 % [facility] PLT 61 (L) 150 - 328 [facility] 10*3/L SERVICES MPV 13.1 (H) 9.8 - 13.0 fL [facility] IPF % 8.1Comment: Platelet 1.2 - 10.7 % [facility] count measured by SERVICES fluorescence method. NRBC/100 WBC 0.0 0.0 - 10.0 [facility] /100 WBCs SERVICES NRBC x10^3 <0.01 10*3/L [facility] GRAN MAT (NEUT) % 76.9 % [facility] IMM GRAN % 0.80 % [facility] LYMPH % 16.0 % [facility] MONO % 6.0 % [facility] EOS % 0.0 % [facility] BASO % 0.3 % [facility] GRAN MAT 2.84 1.99 - 6.95 [facility] x10^3(ANC) 10*3/uL SERVICES IMM GRAN x10^3 0.03 0.00 - 0.06 [facility] 10*3/uL SERVICES LYMPH x10^3 0.59 (L) 1.09 - 3.23 [facility] 10*3/uL SERVICES MONO x10^3 0.22 (L) 0.36 - 1.02 [facility] 10*3/uL SERVICES EOS x10^3 <0.03 (L) 0.06 - 0.53 [facility] 10*3/uL SERVICES BASO x10^3 <0.03 0.01 - 0.09 [facility] 10*3/uL SERVICES BANDS MARKED INCREASED (A) [facility] TOXIC CHANGES Present (A) [facility] SERVICES Specimen Blood - LINE, ARTERIAL Performing Organization Address City/State/Zipcode Phone Number [facility] CLIA: [id number] [place] [address] [place] [address] TROPONIN I (11/02/2020 7:36 AM SODA MAKER) Pathologist Sig nature TROPONIN I 0.006 <=0.034 ng/mL [facility] Specimen Blood - LINE, ARTERIAL Narrative Performed At Equal or Less than 0.034 ng/ml---Normal [facility] Note: Cardiac troponin begins to [...] patient's use of biotin. Performing Organization Address [facility] Phone Number [facility] CLIA: [id number] [place], [place] [id number] [address] [place] [address] Hepatic Function Panel (ALB, T.PRO, BILI T, BU/BC, ALT, AST, ALK, PHOS) (11/02/2020 7:36 AM SODA MAKER) Pathologist Sig nature TOTAL BILI 0.5 0.1 - 1.1 mg/dL [facility] BILI UNCON 0.5 0.1 - 1.1 mg/dL [facility] BILI CONJ 0.0 0.0 - 0.3 mg/dL [facility] SERVICES T PROTEIN 4.5 (L) 6.3 - 8.2 g/dL [facility] SERVICES ALBUMIN 1.7 (L) 3.5 - 5.0 g/dL [facility] SERVICES ALK PHOS 329 (H) 34 - 122 U/L [facility] SERVICES ALTv 62 (H) 5 - 50 U/L [facility] SERVICES AST(SGOT) 77 (H) 13 - 40 U/L [facility] SERVICES Specimen Blood - LINE, ARTERIAL Performing Organization Address City/[facility] Phone Number [facility] CLIA: [id number] [place], [place] [address] [address] [place] [address] Phosphorus Serum (11/02/2020 7:36 AM SODA MAKER) Pathologist Sig nature PHOSPHORUS 3.1 2.5 - 5.0 mg/dL [facility] SERVICES Specimen Blood - LINE, ARTERIAL Performing Organization Address City/[facility]/Zipcode Phone Number [facility] CLIA: [id number] [place] [address] [place] [address] Magnesium Serum (11/02/2020 7:36 AM SODA MAKER) Pathologist Sig nature MAGNESIUM 1.5 (L) 1.7 - 2.4 mg/dL [facility] SERVICES Specimen Blood - LINE, ARTERIAL Performing Organization Address [facility] Phone Number [facility] CLIA: [id number] [place] [address] [place] [address] Basic Metabolic Panel (NA, K, CL, CO2, Glucose, BUN, Creatinine, CA) (11/02/2020 7:36 AM SODA MAKER) NA 138 135 - 145 [facility] mmol/L SERVICES K 4.1 3.5 - 5.0 [facility] mmol/L SERVICES CL 108 98 - 108 mmol/L [facility] SERVICES CO2 TOTAL 33 (H) 23 - 31 mmol/L [facility] SERVICES AGAP <1 (L) 2 - 16 [facility] SERVICES BUN 18 7 - 23 mg/dL [facility] SERVICES GLUCOSE 154 (H) 70 - 110 mg/dL [facility] SERVICES CREATININE 0.22 (L) 0.60 - 1.25 [facility] mg/dL SERVICES CALCIUM 7.1 (L) 8.6 - 10.6 [facility] mg/dL SERVICES eGFR Calculation 485.2 mL/min/1.73m2 [facility] LAB[facility] (Non- SERVICES [place]) eGFR Calculation 588.1 mL/min/1.73m2 [facility] () SERVICES Specimen Blood - LINE, ARTERIAL Narrative Performed At Association of Glomerular Filtration Rate (GFR) and St aging [facility] SERVICES of Kidney Disease* + + [...] in imaging tests) . Performing Organization Address City/[facility] Phone Number [facility] CLIA: [id number] [place] [address] [place] [address] Prothrombin Time / INR (11/02/2020 7:36 AM SODA MAKER) PROTIME PATIENT 13.0 (H) 10.1 - 12.6 [facility] Seconds SERVICES INR 1.1Comment: Normal [facility] INR <1.1; Warfarin SERVICES Therapeutic range 2.0 to 3.0 or 2.5 to 3.5, depending upon the indications. Specimen Blood - LINE, ARTERIAL Performing Organization Address [facility] Phone Number [facility] CLIA: [id number] [place] [address] [place] [address] LACTATE DEHYDROGENASE (11/02/2020 7:36 AM SODA MAKER) [facility] LDH 1,128 (H) 300 - 600 U/L [facility] SERVICES Specimen Blood - LINE, ARTERIAL Performing Organization Address [facility] Phone Number [facility] CLIA: [id number] [place] [address] [place] [address] D-DIMER (11/02/2020 7:35 AM SODA MAKER) Pathologist [facility] D-DIMER 2.23 (H) <0.50 g/mL (FEU) [facility] LABORAT[facility] SERVIC ES Specimen Blood - LINE, ARTERIAL Narrative Performed At This test may be used in conjunction with a clinical p retest [facility] probability (PTP) assessment model to exclude venous thromboembolism (VTE) in patients suspected of deep ve nous thrombosis (DVT) and pulmonary embolism (PE) A D-Dimer value less than 0.50 g/ml (FEU) has a nega tive predicative value of 96 to 100% (95% CI)and 97 to 100% (95% CI) as an aid in the diagnosis of deep vein thrombosis (DVT) and pulmonary embolism when there is low or moderate p retest probability of PE or DVT. D-Dimer values are expressed in initial fibrinogen equivalent units (FEU)" The assay results should be used with other informatio n, including the clinical context, in formi ng a diagnosis. Performing Organization Address City/State/Zipcode Phone Number [facility] CLIA: [id number] [place] [address] [place] [address] Acute Care Arterial Blood Gas. (11/02/2020 5:20 AM SODA MAKER) Pathologist Sig nature PH 7.28 (L) 7.35 - 7.45 [facility] PCO2 61 (H) 35 - 45 mmHg [facility] PO2 95 80 - 100 mmHg [facility] SERVICES HCO3 28 (H) 22 - 26 mEq/L [facility] SERVICES BE 0.1 -3.0 - 3.0 mEq/L [facility] SERVICES Specimen Blood Performing Organization Address City/[facility] Phone Number [facility] CLIA: [id number] [place] [address] [phone] [address] [facility] LAB ONLY COVID INTERPRETATION (11/02/2020 5:17 AM SODA MAKER) COVID DMT Interpretation/Recommendations: [facility] Interpretation SERVICES Molecular NAAT Tests [...] These interpretation comment s are based upon all COVID-19 testing the patient has had at [facility], including molecular NAAT testing (more commonly known as PCR testing and Rapid ID Now testing) and antibody testing. It does not take i nto account any testing that a patient has had outside of the [facility] medical record. COVID Results SARS-CoV-2 NAAT (no units) [facility] RY Date Value SERVICES 09/27/2020 Not Detected SARS-CoV-2 Rapid ID NOW (no units) Date Value 11/02/2020 Not Detected 10/26/2020 Not Detected 10/20/2020 Not Detected 10/10/2020 Not Detected 10/02/2020 Not Detected 09/26/2020 Not Detected 09/20/2020 Positive (A) 08/28/2020 Not Detected 08/23/2020 Not Detected CoV-2 IgG (no units) Date Value 09/27/2020 Positive (A) Specimen Swab - NASOPHARYNGEAL SWAB Performing Organization Address City/State/[facility] Phone Number [facility] CLIA: [id number] [place] [address] [place] [address] COVID-19 (ID NOW RAPID TESTING) (11/02/2020 5:17 AM SODA MAKER) [place] SARS-CoV-2 Rapid ID Not Detected Not Detected [facility] NOW SERVICES Specimen Swab - NASOPHARYNGEAL SWAB Narrative Performed At ID NOW COVID-19 Assay is an isothermal nucleic acid [facility] amplification test intended for the qualitative detect ion of nucleic acid from SARS-CoV-2 viral RNA in nasopharynge al (INSPECTION ENGINEER) specimens. It is used under Emergency Use [...] testing if clinically indicated. Performing Organization Address [facility]/Zipcode Phone Number [facility] CLIA: [id number] [place] [address] [place] [address] D-DIMER (11/02/2020 4:07 AM SODA MAKER) Pathologist Harvey andres D-DIMER 1.45 (H) <0.50 g/mL (FEU) [facility]OR[facility] SERVIC ES Specimen Blood - ARM, LEFT Narrative Performed At This test may be used in conjunction with a clinical p retest [facility] SERVICES probability (PTP) assessment model to exclude venous thromboembolism (VTE) in patients suspected of deep ve nous thrombosis (DVT) and pulmonary embolism (PE) A D-Dimer value less than 0.50 g/ml (FEU) has a nega tive predicative value of 96 to 100% (95% CI)and 97 to 100% (95% CI) as an aid in the diagnosis of deep vein thrombosis (DVT) and pulmonary embolism when there is low or moderate p retest probability of PE or DVT. D-Dimer values are expressed in initial fibrinogen equivalent units (FEU)" The assay results should be used with other informatio n, including the clinical context, in formi ng a diagnosis. Performing Organization Address City/State/Zipcode Phone Number [facility] CLIA: [id number] [place] [address] [place] [address] CBC WITH DIFF (11/02/2020 4:07 AM SODA MAKER) WBC 1.57 (LL) 4.20 - 10.70 [facility] 10*3/L SERVICES RBC 3.23 (L) 4.26 - 5.52 [facility] 10*6/L SERVICES HGB 9.2 (L) 12.2 - 16.4 [facility] g/dL SERVICES HCT 26.4 (L) 38.4 - 49.3 [facility] % SERVICES MCV 81.7 81.7 - 95.6 [facility] fL SERVICES MCH 28.5 26.1 - 32.7 [facility] pg SERVICES MCHC 34.8 31.2 - 35.0 [facility] g/dL SERVICES RDW-SD 39.9 38.5 - 51.6 [facility] fL SERVICES RDW-CV 13.4 12.1 - 15.4 [facility] % SERVICES PLT 43 (LL) 150 - 328 [facility] 10*3/L SERVICES MPV 13.4 (H) 9.8 - 13.0 [facility] fL SERVICES IPF % 7.5Comment: 1.2 - 10.7 % [facility] Platelet count SERVICES measured by fluorescence method. NRBC/100 WBC 0.0 0.0 - 10.0 [facility] /100 WBCs SERVICES NRBC x10^3 <0.01 10*3/L [facility] SERVICES GRAN MAT (NEUT) % 69.5 % [facility] SERVICES IMM GRAN % 0.60 % [facility] SERVICES LYMPH % 21.0 % [facility] SERVICES MONO % 8.3 % [facility] SERVICES EOS % 0.0 % [facility] SERVICES BASO % 0.6 % [facility] SERVICES GRAN MAT x10^3(ANC) 1.09 (L) 1.99 - 6.95 [facility] 10*3/uL SERVICES IMM GRAN x10^3 <0.03 0.00 - 0.06 [facility] 10*3/uL SERVICES LYMPH x10^3 0.33 (L) 1.09 - 3.23 [facility] 10*3/uL SERVICES MONO x10^3 0.13 (L) 0.36 - 1.02 [facility] 10*3/uL SERVICES EOS x10^3 <0.03 (L) 0.06 - 0.53 [facility] 10*3/uL SERVICES BASO x10^3 <0.03 0.01 - 0.09 [facility] 10*3/uL SERVICES SCHISTOCYTES 1+ (A) [facility] SERVICES BANDS Increased (A) [facility] SERVICES REACT LYMPHS Rare [facility] SERVICES TOXIC CHANGES Present (A) [facility] SERVICES Specimen Blood - ARM, LEFT Performing Organization Address City/State/Zipcode Phone Number [facility] SERVICES CLIA: [id number] [place] [address] [place] [address] COMP. METABOLIC PANEL (49513) (11/02/2020 4:07 AM SODA MAKER) NA 137 135 - 145 [facility] mmol/L SERVICES K 3.7 3.5 - 5.0 [facility] mmol/L SERVICES CL 108 98 - 108 mmol/L [facility] SERVICES CO2 TOTAL 31 23 - 31 mmol/L [facility] SERVICES AGAP <1 (L) 2 - 16 [facility] SERVICES BUN 18 7 - 23 mg/dL [facility] SERVICES GLUCOSE 156 (H) 70 - 110 mg/dL [facility] SERVICES CREATININE 0.20 (L) 0.60 - 1.25 [facility] mg/dL SERVICES TOTAL BILI 0.6 0.1 - 1.1 mg/dL [facility] SERVICES CALCIUM 7.3 (L) 8.6 - 10.6 [facility] mg/dL SERVICES T PROTEIN 4.3 (L) 6.3 - 8.2 g/dL [facility] SERVICES ALBUMIN 1.7 (L) 3.5 - 5.0 g/dL [facility] SERVICES ALK PHOS 334 (H) 34 - 122 U/L [facility] SERVICES ALTv 62 (H) 5 - 50 U/L [facility] SERVICES AST(SGOT) 59 (H) 13 - 40 U/L [facility] SERVICES eGFR Calculation 541.7 mL/min/1.73m2 [facility] (Non- SERVICES [place]) eGFR Calculation 656.5 mL/min/1.73m2 [facility] () SERVICES Specimen Blood - ARM, LEFT Narrative Performed At Association of Glomerular Filtration Rate (GFR) and St aging [facility] SERVICES of Kidney Disease* + + [...] in imaging tests) . Performing Organization Address [facility] Phone Number [facility] SERVICES CLIA: [id number] [place] [address] [place] [address] PHOSPHORUS (11/02/2020 4:07 AM SODA MAKER) Pathologist Sig nature PHOSPHORUS 2.6 2.5 - 5.0 mg/dL [facility] SERVICES Specimen Blood - ARM, LEFT Performing Organization Address [facility] Phone Number [facility] SERVICES CLIA: [id number] [place] [address] [place] [address] MAGNESIUM (11/02/2020 4:07 AM SODA MAKER) Pathologist Sig nature MAGNESIUM 1.6 (L) 1.7 - 2.4 mg/dL [facility] SERVICES Specimen Blood - ARM, LEFT Performing Organization Address [facility] Phone Number [facility] SERVICES CLIA: [id number] [place] [address] [place] [address] XR CHEST 1 VW (11/02/2020 3:40 AM SODA MAKER) Specimen Impressions Performed At PACS/VR/DOSE Interval significant worsening in bilateral hazy opaci ties concerning for ARDS. Preliminary Report Dictated by Resident: Sienna Ivy MD., have reviewe d this study and agree with the above report. Narrative Performed At This result has an attachment that is no t available. EXAM: XR CHEST 1 VW 11/02/2020 3:35 AM PACS/VR/DOSE HISTORY: 35 years-old Male with SOB . TECHNIQUE: Portable AP view of the chest. COMPARISON: CXR 10/31/2020. FINDINGS: Lines and tubes: Left-sided PICC catheter tip projects at the mid to distal SVC. Cardiomediastinal: The cardiomediastinal silhouette is blunted bilaterally. A dilated esophagus is seen consistent with patient's history of achalasia. Lungs and pleura: Interval significant worsening in bi lateral lung field hazy opacities with air bronchograms. Bilateral mild p leural effusions are seen. Musculoskeletal: No acute skeletal abnormality. Procedure Note [facility], Radiant Results Inft User - 2020 1:19 PM SODA MAKER EXAM: XR CHEST 1 VW 11/02/2020 3:35 AM HISTORY: 35 years-old Male with SOB . TECHNIQUE: Portable AP view of the chest . COMPARISON: CXR 10/31/2020. FINDINGS: Lines and tubes: Left-sided PICC cathete r tip projects at the mid to distal SVC. Cardiomediastinal: The cardiomediastinal silhouette is blunted bilaterally. A dilated esophagus is seen consistent w ith patient's history of achalasia. Lungs and pleura: Interval significant w orsening in bilateral lung field hazy opacities with air bronchograms. Bi lateral mild pleural effusions are seen. Musculoskeletal: No acute skeletal abnor mality. IMPRESSION Interval significant worsening in bilate ral hazy opacities concerning for ARDS. Preliminary Report Dictated by Resident: Sienna Ivy MD., have reviewed this study and agree with the above report. Performing Organization Address City/State/Zipcode Phone Number PACS/VR/DOSE Acute Care Arterial Blood Gas. (11/02/2020 3:03 AM SODA MAKER) Pathologist Sig nature PH 7.37 7.35 - 7.45 [facility] SERVICES PCO2 48 (H) 35 - 45 mmHg [facility] PO2 82 80 - 100 mmHg [facility] SERVICES HCO3 27 (H) 22 - 26 mEq/L [facility] SERVICES BE 1.3 -3.0 - 3.0 mEq/L [facility] SERVICES Specimen Blood - ARTERIAL Performing Organization Address City/[facility] Phone Number [facility] CLIA: [id number] [place] [address] [place] [address] Vancomycin Trough Level - Draw within 30 minutes prior to 4th dose. (11/01/2020 1:09 PM SODA MAKER) Pathologist Sig nature VANCO TROUGH 10.4 10.0 - 20.0 ug/mL [facility] SERVICE S Specimen Blood - ARM, LEFT Narrative Performed At Toxic Range: >20 ug/mL [facility] SERVICES 15-20 ug/mL is recommended for severe infection or whe n Vancomycin TIM is greater than or equal to 2. Performing Organization Address City/[facility] Phone Number [facility] SERVICES CLIA: [id number] [place] [address] [place] [address] CBC WITHOUT DIFF (11/01/2020 10:45 AM SODA MAKER) WBC 2.72 (L) 4.20 - 10.70 [facility] 10*3/L SERVICES RBC 3.17 (L) 4.26 - 5.52 [facility] 10*6/L SERVICES HGB 8.8 (L) 12.2 - 16.4 [facility] g/dL SERVICES HCT 25.9 (L) 38.4 - 49.3 % [facility] SERVICES MCH 27.8 26.1 - 32.7 pg [facility] SERVICES MCV 81.7 81.7 - 95.6 fL [facility] SERVICES MCHC 34.0 31.2 - 35.0 [facility] g/dL SERVICES PLT 50 (LL) 150 - 328 [facility] 10*3/L SERVICES MPV 11.7 9.8 - 13.0 fL [facility] SERVICES RDW-CV 13.3 12.1 - 15.4 % [facility] SERVICES RDW-SD 39.9 38.5 - 51.6 fL [facility] SERVICES NRBC x10^3 <0.01 10*3/L [facility] SERVICES NRBC/100 WBC 0.0 0.0 - 10.0 [facility] /100 WBCs SERVICES IPF % 6.0Comment: Platelet 1.2 - 10.7 % [facility] count measured by SERVICES fluorescence method. Specimen Blood - ARM, LEFT Performing Organization Address [facility] Phone Number [facility] SERVICES CLIA: [id number] [place] [address] [place] [address] PROTHROMBIN TIME / INR (11/01/2020 10:45 AM SODA MAKER) PROTIME PATIENT 13.9 (H) 10.1 - 12.6 [facility] Seconds SERVICES INR 1.2Comment: Normal [facility] INR <1.1; Warfarin SERVICES Therapeutic range 2.0 to 3.0 or 2.5 to 3.5, depending upon the indications. Specimen Blood - ARM, LEFT Performing Organization Address [facility] Phone Number [facility] CLIA: [id number] [place] [address] [place] [address] FIBRINOGEN (11/01/2020 10:45 AM SODA MAKER) Pathologist Sig nature Fibrinogen 320 167 - 453 mg/dL [facility] SERVICES Specimen Blood - ARM, LEFT Performing Organization Address [facility] Phone Number [facility] SERVICES CLIA: [id number] [place] [address] [place] [address] COMP. METABOLIC PANEL (97645) (11/01/2020 4:48 AM SODA MAKER) NA 135 135 - 145 [facility] mmol/L SERVICES K 4.1 3.5 - 5.0 [facility] mmol/L SERVICES CL 106 98 - 108 mmol/L [facility] SERVICES CO2 TOTAL 29 23 - 31 mmol/L [facility] SERVICES AGAP <1 (L) 2 - 16 [facility] SERVICES BUN 13 7 - 23 mg/dL [facility] SERVICES GLUCOSE 67 (L) 70 - 110 mg/dL [facility] SERVICES CREATININE 0.22 (L) 0.60 - 1.25 [facility] mg/dL SERVICES TOTAL BILI 1.1 0.1 - 1.1 mg/dL [facility] SERVICES CALCIUM 6.9 (L) 8.6 - 10.6 [facility] mg/dL SERVICES T PROTEIN 4.1 (L) 6.3 - 8.2 g/dL [facility] SERVICES ALBUMIN 1.6 (L) 3.5 - 5.0 g/dL [facility] SERVICES ALK PHOS 345 (H) 34 - 122 U/L [facility] SERVICES ALTv 59 (H) 5 - 50 U/L [facility] SERVICES AST(SGOT) 58 (H) 13 - 40 U/L [facility] SERVICES eGFR Calculation 485.2 mL/min/1.73m2 [facility] (Non- SERVICES [place]) eGFR Calculation 588.1 mL/min/1.73m2 [facility] () SERVICES Specimen Blood - ARM, LEFT Narrative Performed At Association of Glomerular Filtration Rate (GFR) and St aging [facility] SERVICES of Kidney Disease* + + [...] . Performing Organization Address City/State/Zipcode Phone Number [facility] SERVICES CLIA: [id number] [place] [address] [place] [address] Bl PHOSPHORUS (11/01/2020 4:48 AM SODA MAKER) [facility] PHOSPHORUS 3.5 2.5 - 5.0 mg/dL [facility] SERVICES Specimen Blood - ARM, LEFT Performing Organization Address City/State/Zipcode Phone Number [facility] SERVICES CLIA: [id number] [place] [address] [place] [address] MAGNESIUM (11/01/2020 4:48 AM SODA MAKER) Pathologist Sig nature MAGNESIUM 1.7 1.7 - 2.4 mg/dL [facility] Specimen Blood - ARM, LEFT Performing Organization Address City/[facility]/Zipcode Phone Number [facility] SERVICES CLIA: [id number] [place] [address] [phone] [address] [facility] CBC WITH DIFF (11/01/2020 4:48 AM SODA MAKER) WBC 2.50 (L) 4.20 - 10.70 [facility] 10*3/L SERVICES RBC 3.18 (L) 4.26 - 5.52 [facility] 10*6/L SERVICES HGB 9.0 (L) 12.2 - 16.4 [facility] g/dL SERVICES HCT 26.2 (L) 38.4 - 49.3 % [facility] SERVICES MCV 82.4 81.7 - 95.6 [facility] fL SERVICES MCH 28.3 26.1 - 32.7 [facility] pg SERVICES MCHC 34.4 31.2 - 35.0 [facility] g/dL SERVICES RDW-SD 39.9 38.5 - 51.6 [facility] fL SERVICES RDW-CV 13.2 12.1 - 15.4 % [facility] SERVICES PLT 42 (LL) 150 - 328 [facility] 10*3/L SERVICES MPV 12.1 9.8 - 13.0 fL [facility] SERVICES IPF % 5.1Comment: Platelet 1.2 - 10.7 % [facility] count measured by SERVICES fluorescence method. NRBC/100 WBC 0.0 0.0 - 10.0 [facility] /100 WBCs SERVICES NRBC x10^3 <0.01 10*3/L [facility] SERVICES GRAN MAT (NEUT) % 70.0 % [facility] SERVICES IMM GRAN % 0.40 % [facility] LYMPH % 23.6 % [facility] MONO % 5.6 % [facility] EOS % 0.0 % [facility] SERVICES BASO % 0.4 % [facility] SERVICES GRAN MAT 1.75 (L) 1.99 - 6.95 [facility] x10^3(ANC) 10*3/uL SERVICES IMM GRAN x10^3 <0.03 0.00 - 0.06 [facility] 10*3/uL SERVICES LYMPH x10^3 0.59 (L) 1.09 - 3.23 [facility] 10*3/uL SERVICES MONO x10^3 0.14 (L) 0.36 - 1.02 [facility] 10*3/uL SERVICES EOS x10^3 <0.03 (L) 0.06 - 0.53 [facility] 10*3/uL SERVICES BASO x10^3 <0.03 0.01 - 0.09 [facility] 10*3/uL SERVICES BANDS Increased (A) [facility] SERVICES TOXIC CHANGES Present (A) [facility] SERVICES Specimen Blood - ARM, LEFT Performing Organization Address City/[facility] Phone Number [facility] SERVICES CLIA: [id number] [place] [address] [place] [address] HIV1 BY REAL-TIME PCR QUANT (11/01/2020 4:48 AM SODA MAKER) HIV-1 Quantitative Not Detected Not Detected [facility] Interpretation SERVICES Specimen Blood - ARM, LEFT Narrative Performed At HIV-1 Real-Time PCR [facility] SERVICES Interpretative data: [employer] m2000 Real Time HIV-1 reverse golf manager-polymerase chain reaction (RT-PCR) assay is used. It is FDA approved for plasma samples to measure HIV-1 RNA for use as an aid in the management of HIV-1 infec annette individuals. The FDA approved dynamic range of this te st is 40 to 10,000,000 copies/mL (1.60-7.00 Log copies/mL). Assay results are reported in copies/mL; 1 copy = 1.74 IU (International Units). Sample input volu me is 0.6 mL. Result Interpretation: Not Detected: Target not detected (not the same as negative); <40 copies/mL: Detected (but not quantif iable); 40-10,000,000 copies/mL >10,000,000 copies/mL; > upper limit of quantification. Performing Organization Address City/State/Zipcode Phone Number [facility] SERVICES CLIA: [id number] [place] [address] [place] [address] US ABDOMEN COMPLETE (11/01/2020 1:53 AM SODA MAKER) Specimen Impressions Performed At PACS/VR/DOSE Unremarkable sonographic appearance of the liver and k idneys. No evidence of intrahepatic or extrahepatic biliary ductal dilatat ion. No focal liver lesions. Distended gallbladder with echogenic slu dge and no definite shadowing stones. Minimal mural thickening with ne gative sonographic Calle sign. Findings are unlikely to represent acute cholecystitis . Recommend follow-up HIDA scan as clinically indicated. Large volume of upp er abdominal ascites. Mildly thickened small bowel loops in the upper abdome n can be reactive or represent enteritis. Preliminary Report Dictated by Resident: Sienna Walker MD., have reviewe d this study and agree with the above report. Narrative Performed At This result has an attachment that is no t available. US ABDOMEN COMPLETE PACS/VR/DOSE INDICATION: elevated liver enzymes COMPARISON: Correlation with same day abdominal CT TECHNIQUE: Grayscale and color Doppler images of the u pper abdomen were obtained with bilingual call center representative images obtained. FINDINGS: The liver measures 12.0 cm in length and demonstrates normal architecture. The main portal vein demonstrates hepatopetal flow. La rge volume upper abdominal ascites is seen. Physiologic distension of the gallbladder. Echogenic s ludge with no definite shadowing stones. The gallbladder wall is dif fusely thickened measuring 3-4 mm. A negative Sonographic Calle's sign was elicited during the exam. The common bile duct is normal in caliber me asuring 4 mm. The pancreas is obscured and poorly evaluated. The spleen measures 9.5 cm. The left and right kidney measure 9.3 cm in length and demonstrates normal echotexture and blood flow on color Doppler images. No focal renal lesions, hydronephrosis or renal calculi are seen. No organized perinephric collections are visualized. Thickened small bowel loops are partially seen in the upper abdomen. The partially imaged abdominal aorta is normal in diam eter at 1.6 cm. Procedure Note [facility], Radiant Results Inft User - 2020 8:16 AM SODA MAKER US ABDOMEN COMPLETE INDICATION: elevated liver enzymes COMPARISON: Correlation with same day ab dominal CT TECHNIQUE: Grayscale and color Doppler i mages of the upper abdomen were obtained with bilingual call center representative images obta ined. FINDINGS: The liver measures 12.0 cm in length and demonstrates normal architecture. The main portal vein demonstrates hepato petal flow. Large volume upper abdominal ascites is seen. Physiologic distension of the gallbladde r. Echogenic sludge with no definite shadowing stones. The gallbladd er wall is diffusely thickened measuring 3-4 mm. A negative Sonographic Calle's sign was elicited during the exam. The common bile duct is normal in caliber measuring 4 mm. The pancreas is obscured and poorly eval uated. The spleen measures 9.5 cm. The left and right kidney measure 9.3 cm in length and demonstrates normal echotexture and blood flow on color Dopp ler images. No focal renal lesions, hydronephrosis or renal calculi are seen . No organized perinephric collections are visualized. Thickened small bowel loops are partiall y seen in the upper abdomen. The partially imaged abdominal aorta is normal in diameter at 1.6 cm. IMPRESSION Unremarkable sonographic appearance of t he liver and kidneys. No evidence of intrahepatic or extrahepatic biliary ductal dilatation. No focal liver lesions. Distended gallbladder with echogenic slu dge and no definite shadowing stones. Minimal mural thickening with ne gative sonographic Calle sign. Findings are unlikely to represent acute cholecystitis. Recommend follow-up HIDA scan as clinically indicated. Large volume of upper abdominal ascites. Mildly thickened small bowel loops in th e upper abdomen can be reactive or represent enteritis. Preliminary Report Dictated by Resident: Sienna Walker MD., have reviewed this study and agree with the above report. Performing Organization Address City/State/Zipcode Phone Number PACS/VR/DOSE Prepare Packed RBC (in units), 1 Units (10/31/2020 11:27 PM SODA MAKER) Cross Match Result Compatible LAB ISBT Blood Type Code 8400 LAB Unit Blood Type AB Pos LAB Unit Number [id number] LAB Blood Expiration Date & LAB Time Status Information Issued LAB Product Identification Red Blood Cells LAB Product Code [id number] LAB Comment: Performed at [facility] Laboratory Services - [facility] Blood Bank [address] [place] [address] Toll Free: [phone] CLIA No. [id number] Specimen Performing Organization Address City/State/Zipcode Phone Number BLD LAB CT THORAX W CONTRAST (10/31/2020 10:08 PM SODA MAKER) Specimen Impressions Performed At 1. Overall, no significant change in prominent diste ntion of the PACS/VR/DOSE thoracic esophagus containing large amount of ing ested material. No evidence of pneumomediastinum to suggest perforation . 2. Interval development of bilateral ruhua-al-bswhoh te pleural effusions with associated atelectasis. 3. Interval development of patchy bila teral groundglass opacities most prominent within the right upper lobe. F indings are nonspecific but may represent infectious process including C ovid 19. 4. Previously described subpleural nod ule is obscured by effusions. Attention on follow-up. 5. Partially visualized exophytic sclerotic lesion e xtending medially from proximal left humerus may represent and osteochondroma . Recommend dedicated radiographs to further characterize. 6. Cachexia. 7. Interval development of upper abdom inal ascites. See separately dictated CT abdomen and pelvis report fo r additional and Narrative Performed At This result has an attachment that is no t available. CT SCAN OF THE CHEST WITH CONTRAST PACS/VR/DOSE TECHNIQUE: Multidetector helical CT scan of the chest was performed following the administration of iodinated intravenous contrast. Coronal and sagittal reformats were also submitted for review. CLINICAL INFORMATION: Esophageal perforation. COMPARISON: 08/23/2019 FINDINGS: Lungs and pleura: Interval development of peripheral ground glass opacities within the right upper and lower lobes. Ther e is also very mild bibasilar opacities within the left lung. Interval development of small to moderate bilateral pl eural effusions with associated atelectasis. Previously described subpleura l nodules are obscured by airspace disease and effusions. Airways: Central airways are patent. Mediastinum: Very prominent distention of the thoracic esophagus containing ingested material and fluid with tapering at the GE ju nction is unchanged. No evidence of pneumomediastinum to suggest perforatio n. Cardiovascular: No cardiomegaly. No pericardial effu vidya. No discernible prominent coronary calcifications. Normal caliber of t he thoracic aorta. Left PICC or midline catheter terminates in the mid to distal SVC. Lower neck and chest wall: Cachexia and body wall anas arca. Small amount of gas within the right axillary region may represent sma ll amount of gas within the axillary veins and may be related to inject ion. Upper abdomen: Interval development of moderate to lar ge volume ascites. Percutaneous gastrostomy tube is in place. See separat linda dictated CT abdomen pelvis report for additional findings. Bones: Partially visualized exophytic sclerotic extend ing medially from the proximal left humerus may represent an or osteochondro ma (302:42). Procedure Note [facility], Radiant Results Inft User - 2020 3:[address] SCAN OF THE CHEST WITH CONTRAST TECHNIQUE: Multidetector helical CT scan of the chest was performed following the administration of iodinate d intravenous contrast. Coronal and sagittal reformats were also submitted f or review. CLINICAL INFORMATION: Esophageal perfora tion. COMPARISON: 08/23/2019 FINDINGS: Lungs and pleura: Interval development of peripheral ground glass opacities within the right upper and low er lobes. There is also very mild bibasilar opacities within the left lung . Interval development of small to moderat e bilateral pleural effusions with associated atelectasis. Previously descr ibed subpleural nodules are obscured by airspace disease and effusio ns. Airways: Central airways are patent. Mediastinum: Very prominent distention o f the thoracic esophagus containing ingested material and fluid with taperin g at the GE junction is unchanged. No evidence of pneumomediastinum to sugg est perforation. Cardiovascular: No cardiomegaly. No per icardial effusion. No discernible prominent coronary calcifications. Hue l caliber of the thoracic aorta. Left PICC or midline catheter terminates in the mid to distal SVC. Lower neck and chest wall: Cachexia and body wall anasarca. Small amount of gas within the right axillary region may represent small amount of gas within the axillary veins and may be rel ated to injection. Upper abdomen: Interval development of m oderate to large volume ascites. Percutaneous gastrostomy tube is in plac e. See separately dictated CT abdomen pelvis report for additional fin dings. Bones: Partially visualized exophytic sc lerotic extending medially from the proximal left humerus may represent an o r osteochondroma (302:42). IMPRESSION 1. Overall, no significant change in pr ominent distention of the thoracic esophagus containing large amount of ing ested material. No evidence of pneumomediastinum to suggest perforation . 2. Interval development of bilateral sm ird-hm-ampmpxyr pleural effusions with associated atelectasis. 3. Interval development of patchy bilat eral groundglass opacities most prominent within the right upper lobe. F indings are nonspecific but may represent infectious process including C ovid 19. 4. Previously described subpleural nodu le is obscured by effusions. Attention on follow-up. 5. Partially visualized exophytic scler otic lesion extending medially from proximal left humerus may represent and osteochondroma. Recommend dedicated radiographs to further characterize. 6. Cachexia. 7. Interval development of upper abdomi nal ascites. See separately dictated CT abdomen and pelvis report fo r additional and Performing Organization Address City/State/Zipcode Phone Number PACS/VR/DOSE CT ABDOMEN PELVIS W CONTRAST (10/31/2020 10:08 PM SODA MAKER) Specimen Impressions Performed At 1. Redemonstration of partially visual ized distended esophagus with PACS/VR/DOSE tapering at the GE junction consistent w ith history of achalasia. 2. Interval development of volume asci adina and body wall anasarca. 3. Cachexia. 4. Moderate gaseous distention of the rectum and rectosigmoid with moderate amount of admixed fecal materia l. 5. Fluid attenuating structure within the right hemiscrotum thought to represent moderate to large hydrocele. Scrotal ultraso und can be performed to further evaluate. 6. Additional findings as above Narrative Performed At This result has an attachment that is no t available. CT ABDOMEN AND PELVIS WITH CONTRAST PACS/VR/DOSE REASON FOR STUDY: acute drop in hemoglobin, hematuria COMPARISON: None available. TECHNIQUE: Multidetector axial CT images from lung bas es through proximal thighs after IV administration of nonionic iodinated c ontrast material. Coronal and sagittal MPR images also generated. INTRAVENOUS CONTRAST ADMINISTRATION (mL Omnipaque 350) : per EMR. FINDINGS: Lower chest: See separately dictated CT chest report f or thoracic findings. Evaluation of abdominal and pelvic structures is limit ed due to cachexia and body wall anasarca. ABDOMEN AND PELVIS Liver: Liver measures 14.4 cm in craniocaudal dimensio n. No focal hepatic lesion identified. Normal hepatic surface contour. Biliary Tract/GB: Elongated gallbladder without radiop aque cholelithiasis. No radiopaque cholelithiasis. Spleen: No splenomegaly. Pancreas: Within normal limits. Adrenals: Within normal limits. Kidneys: Kidneys enhance symmetrically. No hydronephro sis, nephrolithiasis or renal mass. Bowel: Moderate gaseous distention of the rectum and r ectosigmoid with mild to moderate stool burden. Appendix is not clearly visu alized. Small bowel appears mildly edematous. Percutaneous gastrostomy tube tip appears to technique of the bladder lumen. Hyperenhancing gastric rugae with suggestion of mural edema. Peritoneum: Large volume ascites. No pneumoperitoneum. Vasculature: Patent abdominal vasculature. Narrowing o f the celiac trunk origin at the level of the diaphragmatic marion with mil d poststenotic dilatation. Lymph Nodes: No lymphadenopathy. Pelvic organs: Urinary bladder is normal for the degre e of distention. Moderate to large fluid attenuating structure within t he right hemiscrotum that the represent hydrocele. Additional subcentimeter cystic region in the left hemiscrotum is nonspecific. Testes are not well d elineated. Scrotum is not fully within fbkol-dw-erbs. Abdominal/Pelvic Wall: Cachexia and body wall anasarca . Large prominent vessels within the left flank and axillary region (for example 304:5). BONES: No acute or suspicious osseous abnormality. Rel atively shallow right acetabulum probably represents hip dysplasia. Procedure Note [facility], Radiant Results Inft User - 2020 3:[address] ABDOMEN AND PELVIS WITH CONTRAST REASON FOR STUDY: acute drop in hemoglob in, hematuria COMPARISON: None available. TECHNIQUE: Multidetector axial CT images from lung bases through proximal thighs after IV administration of nonion ic iodinated contrast material. Coronal and sagittal MPR images also gen erated. INTRAVENOUS CONTRAST ADMINISTRATION (mL Omnipaque 350): per EMR. FINDINGS: Lower chest: See separately dictated CT chest report for thoracic findings. Evaluation of abdominal and pelvic struc tures is limited due to cachexia and body wall anasarca. ABDOMEN AND PELVIS Liver: Liver measures 14.4 cm in cranioc audal dimension. No focal hepatic lesion identified. Normal hepatic surfac e contour. Biliary Tract/GB: Elongated gallbladder without radiopaque cholelithiasis. No radiopaque cholelithiasis. Spleen: No splenomegaly. Pancreas: Within normal limits. Adrenals: Within normal limits. Kidneys: Kidneys enhance symmetrically. No hydronephrosis, nephrolithiasis or renal mass. Bowel: Moderate gaseous distention of th e rectum and rectosigmoid with mild to moderate stool burden. Appendix is no t clearly visualized. Small bowel appears mildly edematous. Percutaneous gastrostomy tube tip appear s to technique of the bladder lumen. Hyperenhancing gastric rugae with suggestion of mural edema. Peritoneum: Large volume ascites. No pne umoperitoneum. Vasculature: Patent abdominal vasculatur e. Narrowing of the celiac trunk origin at the level of the diaphragmatic marion with mild poststenotic dilatation. Lymph Nodes: No lymphadenopathy. Pelvic organs: Urinary bladder is normal for the degree of distention. Moderate to large fluid attenuating stru cture within the right hemiscrotum that the represent hydrocele. Additional subcentimeter cystic region in the left hemiscrotum is nonspecific. Testes are not well delineated. Scrotum is not fully within [id number]-[id number]. Abdominal/Pelvic Wall: Cachexia and body wall anasarca. Large prominent vessels within the left flank and axilla ry region (for example 304:5). BONES: No acute or suspicious osseous ab normality. Relatively shallow right acetabulum probably represents hip dyspl krzysztof. IMPRESSION 1. Redemonstration of partially visuali zed distended esophagus with tapering at the GE junction consistent w ith history of achalasia. 2. Interval development of volume ascit es and body wall anasarca. 3. Cachexia. 4. Moderate gaseous distention of the r ectum and rectosigmoid with moderate amount of admixed fecal materia l. 5. Fluid attenuating structure within t he right hemiscrotum thought to represent moderate to large hydrocele. S crotal ultrasound can be performed to further evaluate. 6. Additional findings as above Performing Organization Address City/State/Zipcode Phone Number PACS/VR/DOSE XR CHEST 1 VW (10/31/2020 7:28 PM SODA MAKER) Specimen Impressions Performed At PACS/VR/DOSE 1. Left PICC line terminates at level of mid SVC. 2. Retrocardiac opacity and small left effusion agai n seen. Narrative Performed At This result has an attachment that is no t available. EXAM: XR CHEST 1 VW PACS/VR/DOSE HISTORY: s/p PICC line COMPARISON: 10/31/2020 FINDINGS: Lines/Tubes: Left PICC line terminates at distal SVC l evel. Lungs: Mild prominent perihilar vessels. Retrocardiac opacity and small left pleural effusion noted. No pneumothorax. Heart/Mediastinum: The cardiomediastinal silhouette is normal for technique. Bones: No acute osseous abnormality is seen. Procedure Note [facility], Radiant Results Inft User - 2020 7:35 PM SODA MAKER EXAM: XR CHEST 1 VW HISTORY: s/p PICC line COMPARISON: 10/31/2020 FINDINGS: Lines/Tubes: Left PICC line terminates a t distal SVC level. Lungs: Mild prominent perihilar vessels. Retrocardiac opacity and small left pleural effusion noted. No pneumoth orax. Heart/Mediastinum: The cardiomediastinal silhouette is normal for technique. Bones: No acute osseous abnormality is s een. IMPRESSION 1. Left PICC line terminates at level o f mid SVC. 2. Retrocardiac opacity and small left effusion again seen. Performing Organization Address City/[facility] Phone Number PACS/VR/DOSE Type and Screen - ONCE ROBERTO (10/31/2020 5:30 PM SODA MAKER) Pathologist Sig nature ABO & RH AB POSITIVE LAB Comment: Performed at [facility] Laboratory Services - [facility] Blood Bank [address] [place] [address] Toll Free: [phone] CLIA No. [id number] IAT Negative LAB Comment: Performed at [facility] Laboratory Services - [facility] Blood [place] [address] Toll Free: [phone] CLIA No. [id number] Specimen VENOUS Performing Organization Address [facility] Phone Number [facility] LAB FERRITIN SERUM (10/31/2020 3:01 PM SODA MAKER) Pathologist Sig nature FERRITIN 526.0 (H) 18.0 - 464.0 ng/mL [facility] LABORATORY SERVIC ES Specimen Blood - ARTERIAL Narrative Performed At [facility] has been reported to cause a negative bias, int erpret [facility] LABORATORY SERVICES results relative to patient's use of biotin. Performing Organization Address [facility] Phone Number [facility] LABORATORY SERVICES CLIA: [id number] [place] [address] RPR (QUANTITATIVE) (10/31/2020 3:01 PM SODA MAKER) Pathologist [facility] nature RPR (Quantitative) Nonreactive Nonreactive [facility] LABORATORY SERVICES Specimen Blood Performing Organization Address City/[facility]/Zipcode Phone Number [facility] LABORATORY SERVICES CLIA: [id number] [place] [address] [place] [address] LIPID PANEL (58008)(TOTAL CHOLESTEROL, TRIGLYCERIDES, HDL) (10/31/2020 3:01 PM SODA MAKER) Pathologist [facility] CHOL <50 (L) 120 - 200 [facility] LABORATORY mg/dL SERVICES HDL 11 (L) >40 mg/dL [facility] LABORATORY SERVICES HDLC RATIO Comment: Unable to [facility]OR[facility]ORY calculate because, SERVICES either CHOLESTEROL, HDL or both are less than the sensitivity of the analyzer. TRIG 165 30 - 170 mg/dL [facility] LABORATORY SERVICES LDL CHOL Comment: Unable to [facility]OR[facility]ORY calculate because, SERVICES either CHOLESTEROL, HDL or both are less than the sensitivity of the analyzer. VLDL 33 5 - 60 mg/dL [facility] LABORATORY SERVICES Specimen Blood - ARTERIAL Performing Organization Address City/[facility] Phone Number [facility] LABORATORY SERVICES CLIA: [id number] [place] [address] [place] [address] PROTHROMBIN TIME / INR (10/31/2020 3:01 PM SODA MAKER) Pathologist [facility] PROTIME PATIENT 14.0 (H) 10.1 - 12.6 [facility] LABORATORY Seconds SERVICES INR 1.2Comment: Normal [facility]OR[facility]ORY INR <1.1; Warfarin SERVICES Therapeutic range 2.0 to 3.0 or 2.5 to 3.5, depending upon the indications. Specimen Blood Performing Organization Address City/[facility] Phone Number [facility] LABORATORY SERVICES CLIA: [id number] [place] [address] [place] [address] HEPATIC FUNCTION PANEL (93901) (ALB,T.PRO,BILI T,BU/BC,ALT,AST,ALK PHOS) (10/31/2020 3:01 PM SODA MAKER) Pathologist [facility] mckenna TOTAL BILI 0.5 0.1 - 1.1 mg/dL [facility] LABORATORY SERVICES BILI UNCON 0.6 0.1 - 1.1 mg/dL [facility] LABORATORY SERVICES BILI CONJ 0.0 0.0 - 0.3 mg/dL [facility] LABORATORY SERVICES T PROTEIN 3.6 (L) 6.3 - 8.2 g/dL [facility] LABORATORY SERVICES ALBUMIN 1.4 (L) 3.5 - 5.0 g/dL [facility] LABORATORY SERVICES ALK PHOS 313 (H) 34 - 122 U/L [facility]ORATORY SERVICES ALTv 70 (H) 5 - 50 U/L [facility]ORATORY SERVICES AST(SGOT) 58 (H) 13 - 40 U/L [facility] LABORATORY SERVICES Specimen Blood - ARTERIAL Performing Organization Address City/[facility]/Zipcode Phone Number [facility]ORATORY SERVICES CLIA: [id number] [place] [address] [place] [address] RETICULOCYTES AUTOMATED (10/31/2020 3:01 PM SODA MAKER) RETIC Count 0.29 (L) 0.59 - 2.24 % [facility] LABORATORY Automated SERVICES RETIC Absolute <0.0100 (L) 0.0260 - 0.1170 [facility] LABORATORY Count 10*6/L SERVICES IRF % 13.40 2.00 - 19.10 % [facility] LABORATORY SERVICES RETIC-HE 36.7 (H) 27.3 - 36.4 pg [facility] LABORATORY SERVICES Specimen Blood - ARTERIAL Performing Organization Address [facility] Phone Number [facility]OR[facility]ORY SERVICES CLIA: [id number] [place] [address] [place] [address] IRON PANEL (10/31/2020 3:01 PM SODA MAKER) Pathologist Sig nature IRON 42 (L) 50 - 160 ug/dL [facility]ORATORY SERVICES TIBC 107 (L) 250 - 410 ug/dL [facility]ORATORY SERVICES % FE SAT 39 20 - 50 % [facility]ORATORY SERVICES Specimen Blood Performing Organization Address City/[facility]/Zipcode Phone Number [facility]ORATORY SERVICES CLIA: [id number] [place] [address] [place] [address] DIFF CONSULT INTERPRETATION (10/31/2020 3:01 PM SODA MAKER) Specimen Blood - ARTERIAL Narrative Performed At LEUKOPENIA WITH ABSOLUTE NEUTROPENIA, ABSOLUTE LYMPHOP ENIA [facility] LABORATORY SERVICES AND ABSOLUTE MONOCYTOPENIA. EXCLUDE SPLENIC DYSFUNCTION, LIVER DYSFUNCTION AND SYS TEMIC INFECTION/INFLAMMATION. MICROCYTIC HYPOCHROMIC ANEMIA WITH POLYCHROMASIA AND POIKILOCYTOSIS INCLUDING OVALOCYTES, ELLIPTOCYTES, ACANTHOCYTES, IVAN CELLS, RARE TEARDROP CELLS AND RARE SPHEROCYTES SUGGESTIVE OF BLOOD LOSS/HEM OLYSIS. SUGGEST SEARCH FOR ANATOMICAL SOURCES OF BLOOD LOSS AN D HEMOLYSIS WORK-UP INCLUDING RADHA, LDH, HAPTOGLOBIN, JATIN IRUBIN LEVELS AND RETICULOCYTE COUNT. THROMBOCYTOPENIA WITH OCCASIONAL LARGE AND GIANT FORMS . Performing Organization Address City/[facility] Phone Number [facility]ATORY SERVICES CLIA: [id number] [place] [address] [place] [address] EXTRA TUBE SST (10/31/2020 3:01 PM SODA MAKER) Specimen Blood Performing Organization Address [facility] Phone Number [facility] SERVICES CLIA: [id number] [place] [address] [place] [address] EXTRA TUBE RED (10/31/2020 3:01 PM SODA MAKER) Specimen Blood Performing Organization Address [facility] Phone Number [facility] SERVICES CLIA: [id number] [place] [address] [place] [address] EXTRA TUBE LT. BLUE (10/31/2020 3:01 PM SODA MAKER) Specimen Blood Performing Organization Address [facility] Phone Number [facility] SERVICES CLIA: [id number] [place] [address] [place] [address] CREATINE KINASE (10/31/2020 3:01 PM SODA MAKER) Pathologist Sig nature CK 283 (H) 33 - 194 U/L [facility]ORATORY SERVICES Specimen Blood - ARTERIAL Performing Organization Address [facility] Phone Number [facility] SERVICES CLIA: [id number] [place] [address] [phone] [address] [facility] PHOSPHORUS (10/31/2020 3:01 PM SODA MAKER) Pathologist Sig nature PHOSPHORUS 2.2 (L) 2.5 - 5.0 mg/dL [facility]ORATORY SERVICES Specimen Blood - ARTERIAL Performing Organization Address [facility] Phone Number [facility] SERVICES CLIA: [id number] [place] [address] [place] [address] MAGNESIUM (10/31/2020 3:01 PM SODA MAKER) Pathologist Sig nature MAGNESIUM 1.8 1.7 - 2.4 mg/dL [facility] SERVICES Specimen Blood - ARTERIAL Performing Organization Address City/State/Zipcode Phone Number [facility] SERVICES CLIA: [id number] [place] [address] [place] [address] BASIC METABOLIC PANEL (NA, K, CL, CO2, GLUCOSE, BUN, CREATININE, CA) (10/31/2020 3:01 PM SODA MAKER) NA 133 (L) 135 - 145 [facility] mmol/L SERVICES K 3.9 3.5 - 5.0 [facility] mmol/L SERVICES CL 103 98 - 108 mmol/L [facility] SERVICES CO2 TOTAL 28 23 - 31 mmol/L [facility] SERVICES AGAP 2 2 - 16 [facility] SERVICES BUN 12 7 - 23 mg/dL [facility] SERVICES GLUCOSE 85 70 - 110 mg/dL [facility] SERVICES CREATININE 0.23 (L) 0.60 - 1.25 [facility] mg/dL SERVICES CALCIUM 6.5 (L) 8.6 - 10.6 [facility] mg/dL SERVICES eGFR Calculation 461.0 mL/min/1.73m2 [facility] (Non- SERVICES [place]) eGFR Calculation 558.7 mL/min/1.73m2 [facility] () SERVICES Specimen Blood - ARTERIAL Narrative Performed At Association of Glomerular Filtration Rate (GFR) and St aging [facility] SERVICES of Kidney Disease* + + [...] City/State/Zipcode Phone Number [facility] CLIA: [id number] [facility] [place] [address] [place] [address] CBC WITH DIFF (10/31/2020 3:01 PM SODA MAKER) WBC 2.26 (L) 4.20 - 10.70 [facility] 10*3/L SERVICES RBC 2.23 (L) 4.26 - 5.52 [facility] 10*6/L SERVICES HGB 6.2 (L) 12.2 - 16.4 [facility] g/dL SERVICES HCT 18.2 (L) 38.4 - 49.3 % [facility] SERVICES MCV 81.6 (L) 81.7 - 95.6 [facility] fL SERVICES MCH 27.8 26.1 - 32.7 [facility] pg SERVICES MCHC 34.1 31.2 - 35.0 [facility] g/dL SERVICES RDW-SD 40.4 38.5 - 51.6 [facility] fL SERVICES RDW-CV 13.5 12.1 - 15.4 % [facility] SERVICES PLT 44 (LL) 150 - 328 [facility] 10*3/L SERVICES MPV 12.4 9.8 - 13.0 fL [facility] SERVICES IPF % 2.6Comment: Platelet 1.2 - 10.7 % [facility] count measured by SERVICES fluorescence method. NRBC/100 WBC 0.0 0.0 - 10.0 [facility] /100 WBCs SERVICES NRBC x10^3 <0.01 10*3/L [facility] SERVICES GRAN MAT (NEUT) % 64.6 % [facility] SERVICES IMM GRAN % 0.90 % [facility] SERVICES LYMPH % 27.9 % [facility] SERVICES MONO % 6.2 % [facility] SERVICES EOS % 0.4 % [facility] SERVICES BASO % 0.0 % [facility] SERVICES GRAN MAT 1.46 (L) 1.99 - 6.95 [facility] x10^3(ANC) 10*3/uL SERVICES IMM GRAN x10^3 <0.03 0.00 - 0.06 [facility] 10*3/uL SERVICES LYMPH x10^3 0.63 (L) 1.09 - 3.23 [facility] 10*3/uL SERVICES MONO x10^3 0.14 (L) 0.36 - 1.02 [facility] 10*3/uL SERVICES EOS x10^3 <0.03 (L) 0.06 - 0.53 [facility] 10*3/uL SERVICES BASO x10^3 <0.03 0.01 - 0.09 [facility] 10*3/uL SERVICES BANDS Increased (A) [facility] SERVICES DOHLE BODIES Present (A) [facility] SERVICES TOXIC CHANGES Present (A) [facility] SERVICES Specimen Blood - ARTERIAL Performing Organization Address City/State/Zipcode Phone Number [facility] CLIA: [id number] [place] [address] [place] [address] POCT GLUCOSE (AUTOMATED) (10/31/2020 11:38 AM SODA MAKER) Pathologist Sig nature POCT GLU 138 (H) 70 - 110 mg/dL [facility] Specimen Blood Performing Organization Address City/State/Zipcode Phone Number [facility] CLIA: [id number] [place], [place] [address] [place] [address] URINE DRUG (LCMSMS) - OPIATES PANEL (10/31/2020 8:20 AM SODA MAKER) Pathologist Sig nature Morphine-LCMS 580 (H) <50 ng/mL [facility] Morphine-Creatinine 1,676 ng/mg [facility] Normalized SERVICES Morphine-Interpretati Positive (A) Negative [facility] on SERVICES Codeine-Interpretatio Negative Negative [facility] n SERVICES Hydrocodon-LCMS 529 (H) <50 ng/mL [facility] Hydrocodon-Creatinine 1,529 ng/mg [facility] Normalized SERVICES Hydrocodon-Interpreta Positive (A) Negative [facility] tion SERVICES Hydromorph-Interpreta Negative Negative [facility] tion SERVICES Norhydrocod-LCMS 1,564 (H) <50 ng/mL [facility] Norhydrocod-Creatinin 4,520 ng/mg [facility] Normalized SERVICES Norhydrocod-Interpret Positive (A) Negative [facility] ation SERVICES Oxycodone-Interpretat Negative Negative [facility] Oxymorph-Interpretati Negative Negative [facility] SERVICES Noroxycod-Interpretat Negative Negative [facility] SERVICES 6-TRINO(Heroin)-Interpr Negative Negative [facility] etation SERVICES CREAT U 34.6 mg/dL [facility] Specimen Urine - URINE, CLEAN CATCH Narrative Performed At Test developed and characteristics determined by [facility] Laboratory Services. Performing Organization Address City/State/Zipcode Phone Number [facility] CLIA: [id number] [place] [address] [place] [address] URINE DRUG (LCMSMS) - SYNTHETIC OPIATES PANEL (10/31/2020 8:20 AM SODA MAKER) Pathologist Sig nature Tramadol-Interpretatio Negative Negative [facility] Propoxyph-Interpretati Negative Negative [facility] Normeperid-Interpretat Negative Negative [facility] Meperidine-Interpretat Negative Negative [facility] Methadone-Interpretati Negative Negative [facility] EDDP-Interpretation Negative Negative [facility] CREAT U 34.6 mg/dL [facility] Norfentan-Interpretati Negative Negative [facility] Fentanyl-Interpretatio Negative Negative [facility] Buprenorph-Interpretat Negative Negative [facility] Norbupren-Interpretati Negative Negative [facility] SERVICES Carisopro-Interpretati Negative Negative [facility] Meprobamat-Interpretat Negative Negative [facility] Specimen Urine - URINE, CLEAN CATCH Narrative Performed At Test developed and characteristics determined by [facility] Laboratory Services. Performing Organization Address City/State/Zipcode Phone Number [facility] CLIA: [id number] [place] [address] [place] [address] GALV/CLC ONLY - URINE DRUG (IMMUNOASSAY) - COMPREHENSIVE DRUG SCREEN (10/31/2020 8:20 AM SODA MAKER) AMPHET Negative Negative [facility] KAIT U Negative Negative [facility] BENZO U Negative Negative [facility] Cocaine Metabolite Negative Negative [facility] METHADONE Negative Negative [facility] OPIATES Presumptive Negative [facility] Positive (A) SERVICES PCP Negative Negative [facility] THC Negative Negative [facility] Specimen Urine - URINE, CLEAN CATCH Narrative Performed At Urine Drug Cutoff Ranges [facility] Cocaine: 150 ng/mL Benzodiazepines: 200 ng/mL Methadone: 300 ng/mL Amphetamine: 1,000 ng/mL Opiates: 300 ng/mL Cannabinoids: 50 ng/mL Phencyclidine: 25 ng/mL Barbiturates: 200 ng/mL The results are to be used only for medical (i.e., treatment) purposes. Unconfirmed screening results mus t not be used for non-medical purposes (e.g., employment adina ting, legal testing). Performing Organization Address City/State/Zipcode Phone Number [facility] CLIA: [id number] [place] [address] [place] [address] PROTEIN CREAT RATIO URINE RANDOM (10/31/2020 8:20 AM SODA MAKER) Pathologist Sig nature T. PROT U 737 mg/dL [facility] CREAT U 34.7 mg/dL [facility] Protein/Creatinine 21.2 (H) 0.0 - 2.0 [facility] Ratio Urine SERVICES Specimen Urine - URINE, CLEAN CATCH Performing Organization Address City/[facility]/Zipcode Phone Number [facility] CLIA: [id number] [place] [address] [place] [address] URINALYSIS (10/31/2020 8:20 AM SODA MAKER) Pathologist Sig nature APPEARANCE Turbid (A) Clear [facility] COLOR Red (A) Yellow [facility] PH 8.0 4.8 - 8.0 [facility] SP GRAVITY 1.017 1.003 - 1.030 [facility] GLU U QUAL Normal Normal [facility] BLOOD 3+ (A) Negative [facility] KETONES Negative Negative [facility] PROTEIN 500 mg/dL (A) Negative [facility] UROBILIN 4.0 mg/dL (A) Normal [facility] BILIRUBIN Negative Negative [facility] NITRITE Negative Negative [facility] LEUK ERICK 250/uL (A) Negative [facility] RBC/HPF >182 (H) 0 - 3 HPF [facility] WBC/HPF >182 (H) 0 - 5 HPF [facility] BACTERIA Many (A) Negative [facility] MUCOUS Marked (A) Negative LPF [facility] Specimen Urine - URINE, CLEAN CATCH Performing Organization Address City/[facility] Phone Number [facility] CLIA: [id number] [place] [address] [phone] [facility] URINE CULTURE (10/31/2020 8:20 AM SODA MAKER) Pathologist Sig nature URINE CULTURE >100,000 CFU/mL [facility] SERVICES Specimen Urine - URINE, CLEAN CATCH Organism Antibiotic Method Susceptibility [facility] Amoxacillin/Clavulanic SUSCEPTIBILITY TESTING >= 32: Resistant acid [facility] Ampicillin SUSCEPTIBILITY TESTING >=32: Res istant [facility] Ampicillin/Sulbactam SUSCEPTIBILITY TESTING >=32 : Resistant [facility] Cefazolin SUSCEPTIBILITY TESTING >=64: Res istant [facility] Ceftriaxone SUSCEPTIBILITY TESTING <=1: Susc eptible [facility] Ciprofloxacin SUSCEPTIBILITY TESTING <=0.25: S usceptible [facility] Ertapenem SUSCEPTIBILITY TESTING <=0.5: Gonzalez sceptible [facility] Gentamicin SUSCEPTIBILITY TESTING <=1: Susc eptible [facility] Levofloxacin SUSCEPTIBILITY TESTING <=0.12: S usceptible [facility] Nitrofurantoin SUSCEPTIBILITY TESTING 128: Resi stant [facility] Piperacillin/Tazobactam SUSCEPTIBILITY TESTING < =4: Susceptible [facility] Trimethoprim/Sulfamethoxaz SUSCEPTIBILITY TESTIN G <=20: Susceptible ole Comment: Nitrofurantoin is not recommended for us e in treating pyelonephritis or systemic disease. Performing Organization Address City/[facility] Phone Number [facility] CLIA: [id number] [place] [address] [phone] [facility] POCT GLUCOSE (AUTOMATED) (10/31/2020 7:34 AM SODA MAKER) Pathologist Sig nature POCT GLU 92 70 - 110 mg/dL [facility] Specimen Blood Performing Organization Address City/[facility] Phone Number [facility] CLIA: [id number] [place] [address] [place] [address] EXTRA TUBE LT. GREEN (10/31/2020 6:59 AM SODA MAKER) Specimen Blood Performing Organization Address City/[facility]/Zipcode Phone Number [facility] CLIA: [id number] [place] [address] [place] [address] BLOOD CULTURE SCREEN (10/31/2020 6:57 AM SODA MAKER) Blood No organisms isolated No growth [facility] Culture-Aerobic Comment: SERVICES Previous preliminary verifie d result was Culture In Progress on 10/31/2020 at 1101 SODA MAKER Previous preliminary verifie d result was No growth at 24 hours on 11/01/2020 at 0801 SODA MAKER Previous preliminary verifie d result was No growth at 48 hours on 11/02/2020 at 0801 SODA MAKER Previous preliminary verifie d result was No growth at 72 hours on 11/03/2020 at 0801 SODA MAKER Blood No organisms isolated No growth [facility] Culture-Anaerobic Comment: SERVICES Previous preliminary verifie d result was Culture In Progress on 10/31/2020 at 1101 SODA MAKER Previous preliminary verifie d result was No growth at 24 hours on 11/01/2020 at 0801 SODA MAKER Previous preliminary verifie d result was No growth at 48 hours on 11/02/2020 at 0801 SODA MAKER Previous preliminary verifie d result was No growth at 72 hours on 11/03/2020 at 0801 SODA MAKER Specimen Blood - HAND, LEFT Performing Organization Address [facility] Phone Number [facility] CLIA: [id number] [place] [address] [place] [address] BLOOD CULTURE SCREEN (10/31/2020 6:56 AM SODA MAKER) Blood No organisms isolated No growth [facility] Culture-Aerobic Comment: SERVICES Previous preliminary verifie d result was Culture In Progress on 10/31/2020 at 1101 SODA MAKER Previous preliminary verifie d result was No growth at 24 hours on 11/01/2020 at 0801 SODA MAKER Previous preliminary verifie d result was No growth at 48 hours on 11/02/2020 at 0801 SODA MAKER Previous preliminary verifie d result was No growth at 72 hours on 11/03/2020 at 0801 SODA MAKER Blood No organisms isolated No growth [facility] Culture-Anaerobic Comment: SERVICES Previous preliminary verifie d result was Culture In Progress on 10/31/2020 at 1101 SODA MAKER Previous preliminary verifie d result was No growth at 24 hours on 11/01/2020 at 0801 SODA MAKER Previous preliminary verifie d result was No growth at 48 hours on 11/02/2020 at 0801 SODA MAKER Previous preliminary verifie d result was No growth at 72 hours on 11/03/2020 at 0801 SODA MAKER Specimen Blood - HAND, RIGHT Performing Organization Address [facility] Phone Number [facility] CLIA: [id number] [place] [address] [place] [address] Lactic Acid Whole Blood (10/31/2020 6:55 AM SODA MAKER) Pathologist Sig [facility] LACTIC ACID 1.52 mmol/L [facility] Specimen Blood - HAND, RIGHT Performing Organization Address [facility] Phone Number [facility] CLIA: [id number] [place] [address] [place] [address] PROCALCITONIN (10/31/2020 6:55 AM SODA MAKER) Pathologist Sig nature Procalcitonin 0.07 (H) <0.07 ng/mL [facility] Specimen Blood - HAND, RIGHT Narrative Performed At INTERPRETATION OF PROCALCITONIN RESULTS IN ADULTS >= 1 8 [facility] YEARS OF AGE Initiation and discontinuation of antibiotics on patie nts with suspected or confirmed Lower Respiratory Tract Infection in Adults >= 18 years of age. + + + +----- ------ + |Procalcitonin |Interpretation |Antibiotic |Considerations |ng/mL | |recommend ation | + + + +----- ------ + | <0.1 | Bacterial | Strongly | | | infection very | discouraged | Overruling: | | unlikely | | Clinically unstable + + + + H igh risk for adverse | <0.25 | Bacterial | Discouraged | outcome | | infection | | SEE IMPORTANT NOTE | | unlikely | | + + + +----- ------ + | >=0.25 | Bacterial | Encouraged | | | infection | | | | likely | | Consider treatment failure + + + + if l evels does not decrease | >0.5 | Bacterial | Strongly | appropriately | | infection very | encouraged | | | likely | | + + + +----- ------ + Discontinuation of antibiotics in high-acuity patients with suspected or confirmed sepsis in Adults >= 18 years of age. + + + +----- ------ + |Procalcitonin |Interpretation |Antibiotic |Considerations |ng/mL | |recommend ation | + + + +----- ------ + | <0.25 | Bacterial | Strongly | | | infection very | discouraged | Overruling: | | unlikely | | Clinically unstable + + + + H igh risk for adverse | <0.5 or drop | Bacterial | Discouraged | outcome | >80% from | infection | | SEE IMPORTANT NOTE | highest PCT | unlikely | | | level | | | + + + +----- ------ + | >=0.5 | Bacterial | Encouraged | | | infection | | | | likely | | Consider treatment failure + + + + if l evels does not decrease | >1.0 | Bacterial | Strongly | appropriately | | infection very | encouraged | | | likely | | + + + +----- ------ + Percentage of drop of Procalcitonin calculation for Discontinuation of antibiotics in high-acuity patients with suspected or confirmed sepsis in Adults >= 18 years of age. Procalcitonin highest{}-Procalcitonin current{} Delta Procalcitonin = x100% Procalcitonin current {} IMPORTANT NOTE: Procalcitonin may be elevated without bacterial infection by physiologic stress related to t [place], east, chronic dialysis, metastatic cancer, surgery in the past seven days, malaria, some fungal infections, and some forms of vasculitis. The interpretation algorithm may not apply to patients with immunosuppression (equivalent o f >10 mg of prednisone daily), HIV with CD4 cell count < 350 cells/mm3, active malignancy on systemic chemotherapy, solid organ transplant or [facility], or hospital acquired pneumonia. Additionally, some cli nical trials of procalcitonin have excluded patients with sh ock requiring vasopressor use, acute respiratory failure requiring mechanical ventilation, or those with known lung abscess/empyema. For further information please refer to: [email or web address] Performing Organization Address City/State/Zipcode Phone Number [facility] CLIA: [id number] [place], [place] [address] [address] [place] [address] CBC WITH DIFF (10/31/2020 6:55 AM SODA MAKER) WBC 2.03 (L) 4.20 - 10.70 [facility] 10*3/L SERVICES RBC 2.87 (L) 4.26 - 5.52 [facility] 10*6/L SERVICES HGB 7.8 (L) 12.2 - 16.4 [facility] g/dL SERVICES HCT 23.5 (L) 38.4 - 49.3 % [facility] MCV 81.9 81.7 - 95.6 [facility] fL SERVICES MCH 27.2 26.1 - 32.7 [facility] pg SERVICES MCHC 33.2 31.2 - 35.0 [facility] g/dL SERVICES RDW-SD 40.7 38.5 - 51.6 [facility] fL SERVICES RDW-CV 13.6 12.1 - 15.4 % [facility] PLT 55 (L) 150 - 328 [facility] 10*3/L SERVICES MPV 11.5 9.8 - 13.0 fL [facility] IPF % 4.1Comment: Platelet 1.2 - 10.7 % [facility] count measured by SERVICES fluorescence method. NRBC/100 WBC 0.0 0.0 - 10.0 [facility] /100 WBCs SERVICES NRBC x10^3 <0.01 10*3/L [facility] GRAN MAT (NEUT) % 59.1 % [facility] IMM GRAN % 0.50 % [facility] LYMPH % 35.5 % [facility] MONO % 4.9 % [facility] EOS % 0.0 % [facility] BASO % 0.0 % [facility] GRAN MAT 1.20 (L) 1.99 - 6.95 [facility] x10^3(ANC) 10*3/uL SERVICES IMM GRAN x10^3 <0.03 0.00 - 0.06 [facility] 10*3/uL SERVICES LYMPH x10^3 0.72 (L) 1.09 - 3.23 [facility] 10*3/uL SERVICES MONO x10^3 0.10 (L) 0.36 - 1.02 [facility] 10*3/uL SERVICES EOS x10^3 <0.03 (L) 0.06 - 0.53 [facility] 10*3/uL SERVICES BASO x10^3 <0.03 0.01 - 0.09 [facility] 10*3/uL SERVICES BANDS MARKED INCREASED (A) [facility] DOHLE BODIES Present (A) [facility] REACT LYMPHS Rare [facility] TOXIC CHANGES Present (A) [facility] Specimen Blood - HAND, RIGHT Performing Organization Address City/State/Zipcode Phone Number [facility] CLIA: [id number] [place], [place] [address] [address] [place] [address] XR CHEST 1 VW (10/31/2020 6:52 AM SODA MAKER) Specimen Narrative Performed At This result has an attachment that is no t available. EXAM: XR CHEST 1 VW PACS/VR/DOSE HISTORY: fever r/o pneumonia COMPARISON: None. FINDINGS: Ill-defined densities in the left lung base are suspic ious for pneumonia, associated with a pleural effusion. The horizontal den sity in the right lung base is probably due to atelectasis. The lungs ar e well expanded and clear otherwise. The heart and great vessels are hue l. Procedure Note [facility], Radiant Results Inft User - 2020 10:26 AM SODA MAKER EXAM: XR CHEST 1 VW HISTORY: fever r/o pneumonia COMPARISON: None. FINDINGS: Ill-defined densities in the left lung b ase are suspicious for pneumonia, associated with a pleural effusion. The horizontal density in the right lung base is probably due to atelectasis . The lungs are well expanded and clear otherwise. The heart and great ves sels are normal. Performing Organization Address City/[facility]/Zipcode Phone Number PACS/VR/DOSE PHOSPHORUS (10/31/2020 4:22 AM SODA MAKER) Pathologist Sig nature PHOSPHORUS 2.7 2.5 - 5.0 mg/dL [facility] Specimen Blood - ARM, RIGHT Performing Organization Address [facility] Phone Number [facility] CLIA: [id number] [place] [address] [place] [address] MAGNESIUM (10/31/2020 4:22 AM SODA MAKER) Pathologist Sig nature MAGNESIUM 2.2 1.7 - 2.4 mg/dL [facility] Specimen Blood - ARM, RIGHT Performing Organization Address [facility] Phone Number [facility] CLIA: [id number] [place] [address] [place] [address] COMP. METABOLIC PANEL (48189) (10/31/2020 4:22 AM SODA MAKER) NA 133 (L) 135 - 145 [facility] mmol/L SERVICES K 4.5 3.5 - 5.0 [facility] mmol/L SERVICES CL 104 98 - 108 mmol/L [facility] CO2 TOTAL 30 23 - 31 mmol/L [facility] AGAP <1 (L) 2 - 16 [facility] BUN 10 7 - 23 mg/dL [facility] GLUCOSE 90 70 - 110 mg/dL [facility] CREATININE 0.24 (L) 0.60 - 1.25 [facility] mg/dL SERVICES TOTAL BILI 0.8 0.1 - 1.1 mg/dL [facility] SERVICES CALCIUM 6.8 (L) 8.6 - 10.6 [facility] mg/dL SERVICES T PROTEIN 4.2 (L) 6.3 - 8.2 g/dL [facility] SERVICES ALBUMIN 1.7 (L) 3.5 - 5.0 g/dL [facility] ALK PHOS 425 (H) 34 - 122 U/L [facility] ALTv 61 (H) 5 - 50 U/L [facility] SERVICES AST(SGOT) 54 (H) 13 - 40 U/L [facility] SERVICES eGFR Calculation 438.9 mL/min/1.73m2 [facility] (Non- SERVICES [place]) eGFR Calculation 531.9 mL/min/1.73m2 [facility] () SERVICES Specimen Blood - ARM, RIGHT Narrative Performed At Association of Glomerular Filtration Rate (GFR) and St aging [facility] of Kidney Disease* + + [...] . Performing Organization Address City/State/Zipcode Phone Number [facility] CLIA: [id number] [place], [place] [id number] [address] [place] [address] POCT GLUCOSE (AUTOMATED) (10/30/2020 8:35 PM SODA MAKER) [facility] POCT GLU 105 70 - 110 mg/dL [facility] Specimen Blood Performing Organization Address City/State/Zipcode Phone Number [facility] CLIA: [id number] [place] [address] [place] [address] PHOSPHORUS (10/30/2020 5:17 PM SODA MAKER) Pathologist Sig nature PHOSPHORUS 3.4 2.5 - 5.0 mg/dL [facility] Specimen Blood - ARM, RIGHT Performing Organization Address City/[facility]/Zipcode Phone Number [facility] CLIA: [id number] [place] [address] [place] [address] MAGNESIUM (10/30/2020 5:17 PM SODA MAKER) Pathologist Sig nature MAGNESIUM 2.4 1.7 - 2.4 mg/dL [facility] Specimen Blood - ARM, RIGHT Performing Organization Address City/[facility] Phone Number [facility] CLIA: [id number] [place] [address] [place] [address] BASIC METABOLIC PANEL (NA, K, CL, CO2, GLUCOSE, BUN, CREATININE, CA) (10/30/2020 5:17 PM SODA MAKER) NA 131 (L) 135 - 145 [facility] mmol/L SERVICES K 3.9Comment: 3.5 - 5.0 [facility] Slight hemolysis mmol/L SERVICES CL 108 98 - 108 [facility] mmol/L SERVICES CO2 TOTAL 22 (L) 23 - 31 [facility] mmol/L SERVICES AGAP 1 (L) 2 - 16 [facility] SERVICES BUN 6 (L)Comment: 7 - 23 mg/dL [facility] Slight hemolysis SERVICES GLUCOSE 113 (H) 70 - 110 [facility] mg/dL SERVICES CREATININE 0.17 (L) 0.60 - 1.25 [facility] mg/dL SERVICES CALCIUM 5.9 (LL) 8.6 - 10.6 [facility] mg/dL SERVICES eGFR Calculation 653.4 mL/min/1.73m2 [facility] (Non- SERVICES [place]) eGFR Calculation 791.9 mL/min/1.73m2 [facility] () SERVICES Specimen Blood - ARM, RIGHT Narrative Performed At Association of Glomerular Filtration Rate (GFR) and St aging [facility] SERVICES of Kidney Disease* + + [...] in imaging tests) . Performing Organization Address [facility] Phone Number [facility] CLIA: [id number] [place] [address] [place] [address] POCT GLUCOSE (AUTOMATED) (10/30/2020 4:33 PM SODA MAKER) Pathologist Sig [facility] POCT GLU 134 (H) 70 - 110 mg/dL [facility] Specimen Blood Performing Organization Address [facility] Phone Number [facility] [place] CLIA: [id number] [place] [address] [place] [address] HAPTOGLOBIN, SERUM (10/30/2020 9:43 AM SODA MAKER) Pathologist Sig R&V HAPTOGLOB 60 16 - 200 mg/dL [facility] Specimen Blood - VENOUS Performing Organization Address [facility] Phone Number [facility] CLIA: [id number] [place] [address] [place] [address] IONIZED CALCIUM (10/30/2020 9:43 AM SODA MAKER) Pathologist Sig R&V IONIZED CA 4.10 (L) 4.50 - 5.30 mg/dL [facility] S PH SERUM 7.47 (H) 7.35 - 7.45 [facility] Specimen Blood - VENOUS Performing Organization Address [facility] Phone Number [facility] CLIA: [id number] [place] [address] [phone] 301 [facility] PHOSPHORUS (10/30/2020 5:55 AM SODA MAKER) Pathologist Sig nature PHOSPHORUS 1.7 (L) 2.5 - 5.0 mg/dL [facility] Specimen Blood - HAND, RIGHT Performing Organization Address City/State/Zipcode Phone Number [facility] CLIA: [id number] [place] [address] [phone] 301 [facility] MAGNESIUM (10/30/2020 5:55 AM SODA MAKER) Pathologist Sig nature MAGNESIUM 1.9 1.7 - 2.4 mg/dL [facility] Specimen Blood - HAND, RIGHT Performing Organization Address City/[facility]/Zipcode Phone Number [facility] CLIA: [id number] [place] [address] [place] [address] COMP. METABOLIC PANEL (54684) (10/30/2020 5:55 AM SODA MAKER) NA 134 (L) 135 - 145 [facility] mmol/L SERVICES K 4.6 3.5 - 5.0 [facility] mmol/L SERVICES CL 106 98 - 108 mmol/L [facility] CO2 TOTAL 22 (L) 23 - 31 mmol/L [facility] AGAP 6 2 - 16 [facility] BUN 8 7 - 23 mg/dL [facility] GLUCOSE 92 70 - 110 mg/dL [facility] CREATININE 0.23 (L) 0.60 - 1.25 [facility] mg/dL SERVICES TOTAL BILI 0.9 0.1 - 1.1 mg/dL [facility] CALCIUM 6.8 (L) 8.6 - 10.6 [facility] mg/dL SERVICES T PROTEIN 4.4 (L) 6.3 - 8.2 g/dL [facility] ALBUMIN 1.8 (L) 3.5 - 5.0 g/dL [facility] ALK PHOS 504 (H) 34 - 122 U/L [facility] ALTv 93 (H) 5 - 50 U/L [facility] AST(SGOT) 66 (H) 13 - 40 U/L [facility] eGFR Calculation 461.0 mL/min/1.73m2 [facility] (Non- SERVICES [place]) eGFR Calculation 558.7 mL/min/1.73m2 [facility] () SERVICES Specimen Blood - HAND, RIGHT Narrative Performed At Association of Glomerular Filtration Rate (GFR) and St aging [facility] of Kidney Disease* + + [...] in imaging tests) . Performing Organization Address [facility] Phone Number [facility] CLIA: [id number] [place] [address] [place] [address] MAGNESIUM (10/29/2020 4:59 PM SODA MAKER) Pathologist Sig nature MAGNESIUM 2.4 1.7 - 2.4 mg/dL [facility] Specimen Blood - ARM, LEFT Performing Organization Address [facility] Phone Number [facility] CLIA: [id number] [place], [place] [id number] 301 [facility] PHOSPHORUS (10/29/2020 4:59 PM SODA MAKER) Pathologist Sig nature PHOSPHORUS 2.2 (L) 2.5 - 5.0 mg/dL [facility] Specimen Blood - ARM, LEFT Performing Organization Address [facility] Phone Number [facility] CLIA: [id number] [place] [address] [place] [address] BASIC METABOLIC PANEL (NA, K, CL, CO2, GLUCOSE, BUN, CREATININE, CA) (10/29/2020 4:59 PM SODA MAKER) NA 133 (L) 135 - 145 [facility] mmol/L SERVICES K 2.6 (LL) 3.5 - 5.0 [facility] mmol/L SERVICES CL 101 98 - 108 mmol/L [facility] CO2 TOTAL 34 (H) 23 - 31 mmol/L [facility] AGAP <1 (L) 2 - 16 [facility] BUN 11 7 - 23 mg/dL [facility] GLUCOSE 87 70 - 110 mg/dL [facility] CREATININE 0.32 (L) 0.60 - 1.25 [facility] mg/dL SERVICES CALCIUM 6.1 (L) 8.6 - 10.6 [facility] mg/dL SERVICES eGFR Calculation 314.9 mL/min/1.73m2 [facility] (Non- SERVICES [place]) eGFR Calculation 381.7 mL/min/1.73m2 [facility] () SERVICES Specimen Blood - ARM, LEFT Narrative Performed At Association of Glomerular Filtration Rate (GFR) and St aging [facility] of Kidney Disease* + + [...] . Performing Organization Address City/State/Zipcode Phone Number [facility] CLIA: [id number] [place], [place] [id number] [address] [place] [address] Blvd PHOSPHORUS (10/29/2020 4:11 AM SODA MAKER) Pathologist Sig nature PHOSPHORUS 1.8 (L) 2.5 - 5.0 mg/dL [facility] Specimen Blood - ARM, RIGHT Performing Organization Address City/State/Zipcode Phone Number [facility] CLIA: [id number] [place] [address] [place] [address] MAGNESIUM (10/29/2020 4:11 AM SODA MAKER) Pathologist Sig nature MAGNESIUM 1.8 1.7 - 2.4 mg/dL [facility] Specimen Blood - ARM, RIGHT Performing Organization Address City/State/Zipcode Phone Number [facility] CLIA: [id number] [place] [address] [place] [address] COMP. METABOLIC PANEL (86105) (10/29/2020 4:11 AM SODA MAKER) NA 134 (L) 135 - 145 [facility] mmol/L SERVICES K 3.4 (L) 3.5 - 5.0 [facility] mmol/L SERVICES CL 104 98 - 108 mmol/L [facility] CO2 TOTAL 25 23 - 31 mmol/L [facility] AGAP 5 2 - 16 [facility] BUN 16 7 - 23 mg/dL [facility] GLUCOSE 94 70 - 110 mg/dL [facility] CREATININE 0.31 (L) 0.60 - 1.25 [facility] mg/dL SERVICES TOTAL BILI 1.1 0.1 - 1.1 mg/dL [facility] CALCIUM 6.6 (L) 8.6 - 10.6 [facility] mg/dL SERVICES T PROTEIN 4.6 (L) 6.3 - 8.2 g/dL [facility] ALBUMIN 1.8 (L) 3.5 - 5.0 g/dL [facility] ALK PHOS 610 (H) 34 - 122 U/L [facility] ALTv 96 (H) 5 - 50 U/L [facility] AST(SGOT) 66 (H) 13 - 40 U/L [facility] eGFR Calculation 326.6 mL/min/1.73m2 [facility] (Non- SERVICES [place]) eGFR Calculation 395.9 mL/min/1.73m2 [facility] () SERVICES Specimen Blood - ARM, RIGHT Narrative Performed At Association of Glomerular Filtration Rate (GFR) and St aging [facility] of Kidney Disease* + + [...] in imaging tests) . Performing Organization Address [facility] Phone Number [facility] CLIA: [id number] [place] [address] [phone] 301 [facility] ALBUMIN (10/28/2020 5:32 AM SODA MAKER) Pathologist Sig nature ALBUMIN 1.8 (L) 3.5 - 5.0 g/dL [facility] Specimen Blood - ARM, RIGHT Performing Organization [facility] Phone Number [facility] CLIA: [id number] [place] [address] [phone] 301 [facility] PHOSPHORUS (10/28/2020 5:32 AM SODA MAKER) Pathologist Sig nature PHOSPHORUS 1.9 (L) 2.5 - 5.0 mg/dL [facility] Specimen Blood - ARM, RIGHT Performing Organization Address [facility] Phone Number [facility] CLIA: [id number] [place] [address] [phone] 301 [facility] MAGNESIUM (10/28/2020 5:32 AM SODA MAKER) Pathologist Sig nature MAGNESIUM 1.9 1.7 - 2.4 mg/dL [facility] Specimen Blood - ARM, RIGHT Performing Organization Address City/State/Zipcode Phone Number [facility] CLIA: [id number] [place], [place] [id number] [address] [place] [address] BASIC METABOLIC PANEL (NA, K, CL, CO2, GLUCOSE, BUN, CREATININE, CA) (10/28/2020 5:32 AM SODA MAKER) NA 131 (L) 135 - 145 [facility] mmol/L SERVICES K 3.5 3.5 - 5.0 [facility] mmol/L SERVICES CL 99 98 - 108 mmol/L [facility] CO2 TOTAL 34 (H) 23 - 31 mmol/L [facility] AGAP <1 (L) 2 - 16 [facility] BUN 18 7 - 23 mg/dL [facility] GLUCOSE 110 70 - 110 mg/dL [facility] CREATININE 0.47 (L) 0.60 - 1.25 [facility] mg/dL SERVICES CALCIUM 6.7 (L) 8.6 - 10.6 [facility] mg/dL SERVICES eGFR Calculation 202.1 mL/min/1.73m2 [facility] (Non- SERVICES [place]) eGFR Calculation 244.9 mL/min/1.73m2 [facility] () SERVICES Specimen Blood - ARM, RIGHT Narrative Performed At Association of Glomerular Filtration Rate (GFR) and St aging [facility] of Kidney Disease* + + [...] . Performing Organization Address City/State/Zipcode Phone Number [facility] CLIA: [id number] [place] [address] [place] [address] POCT GLUCOSE (AUTOMATED) (10/27/2020 11:46 AM SODA MAKER) Pathologist Sig nature POCT GLU 230 (H) 70 - 110 mg/dL [facility] Specimen Blood Performing Organization Address City/[facility] Phone Number [facility] CLIA: [id number] [place] [address] [place] [address] POCT GLUCOSE (AUTOMATED) (10/27/2020 10:26 AM SODA MAKER) Pathologist Sig nature POCT GLU 40 (LL) 70 - 110 mg/dL [facility] Specimen Blood Performing Organization Address City/[facility] Phone Number [facility] CLIA: [id number] [place] [address] [place] [address] PHOSPHORUS (10/27/2020 5:00 AM SODA MAKER) Pathologist Sig nature PHOSPHORUS 2.3 (L) 2.5 - 5.0 mg/dL [facility] Specimen Blood - VENOUS Performing Organization Address [facility] Phone Number [facility] CLIA: [id number] [place] [address] [place] [address] MAGNESIUM (10/27/2020 5:00 AM SODA MAKER) Pathologist Sig nature MAGNESIUM 1.6 (L) 1.7 - 2.4 mg/dL [facility] Specimen Blood - VENOUS Performing Organization Address City/[facility] Phone Number [facility] CLIA: [id number] [place] [address] [phone] 301 [facility] COMP. METABOLIC PANEL (01857) (10/27/2020 5:00 AM SODA MAKER) NA 135 135 - 145 [facility] mmol/L SERVICES K 3.8 3.5 - 5.0 [facility] mmol/L SERVICES CL 102 98 - 108 mmol/L [facility] SERVICES CO2 TOTAL 31 23 - 31 mmol/L [facility] SERVICES AGAP 2 2 - 16 [facility] BUN 18 7 - 23 mg/dL [facility] GLUCOSE 45 (LL) 70 - 110 mg/dL [facility] SERVICES CREATININE 0.48 (L) 0.60 - 1.25 [facility] mg/dL SERVICES TOTAL BILI 1.5 (H) 0.1 - 1.1 mg/dL [facility] SERVICES CALCIUM 7.2 (L) 8.6 - 10.6 [facility] mg/dL SERVICES T PROTEIN 5.2 (L) 6.3 - 8.2 g/dL [facility] SERVICES ALBUMIN 2.1 (L) 3.5 - 5.0 g/dL [facility] SERVICES ALK PHOS 787 (H) 34 - 122 U/L [facility] ALTv 200 (H) 5 - 50 U/L [facility] SERVICES AST(SGOT) 116 (H) 13 - 40 U/L [facility] SERVICES eGFR Calculation 197.2 mL/min/1.73m2 [facility] (Non- SERVICES [place]) eGFR Calculation 239.0 mL/min/1.73m2 [facility] () SERVICES Specimen Blood - VENOUS Narrative Performed At [employer] of Glomerular Filtration Rate (GFR) and St aging [facility] of Kidney Disease* + + [...] . Performing Organization Address City/State/Zipcode Phone Number [facility] CLIA: [id number] [place] [address] [place] [address] CBC WITH DIFF (10/27/2020 5:00 AM SODA MAKER) WBC 4.12 (L) 4.20 - 10.70 [facility] 10*3/L SERVICES RBC 3.95 (L) 4.26 - 5.52 [facility] 10*6/L SERVICES HGB 11.0 (L) 12.2 - 16.4 [facility] g/dL SERVICES HCT 32.6 (L) 38.4 - 49.3 % [facility] MCV 82.5 81.7 - 95.6 fL [facility] SERVICES MCH 27.8 26.1 - 32.7 pg [facility] SERVICES MCHC 33.7 31.2 - 35.0 [facility] g/dL SERVICES RDW-SD 40.0 38.5 - 51.6 fL [facility] SERVICES RDW-CV 13.4 12.1 - 15.4 % [facility] SERVICES PLT 127 (L) 150 - 328 [facility] 10*3/L SERVICES MPV 10.0 9.8 - 13.0 fL [facility] SERVICES NRBC/100 WBC 0.0 0.0 - 10.0 [facility] /100 WBCs SERVICES NRBC x10^3 <0.01 10*3/L [facility] SERVICES GRAN MAT (NEUT) % 56.4 % [facility] IMM GRAN % 0.50 % [facility] LYMPH % 38.3 % [facility] MONO % 4.6 % [facility] EOS % 0.0 % [facility] BASO % 0.2 % [facility] GRAN MAT 2.32 1.99 - 6.95 [facility] x10^3(ANC) 10*3/uL SERVICES IMM GRAN x10^3 <0.03 0.00 - 0.06 [facility] 10*3/uL SERVICES LYMPH x10^3 1.58 1.09 - 3.23 [facility] 10*3/uL SERVICES MONO x10^3 0.19 (L) 0.36 - 1.02 [facility] 10*3/uL SERVICES EOS x10^3 <0.03 (L) 0.06 - 0.53 [facility] 10*3/uL SERVICES BASO x10^3 <0.03 0.01 - 0.09 [facility] 10*3/uL SERVICES IVAN CELLS 2+ (A) (none) [facility] SERVICES BANDS Increased (A) [facility] SERVICES DOHLE BODIES Present (A) [facility] SERVICES TOXIC CHANGES Present (A) [facility] SERVICES Specimen Blood - VENOUS Performing Organization Address City/State/Zipcode Phone Number [facility] CLIA: [id number] [place] [address] [place] [address] LAB ONLY COVID INTERPRETATION (10/26/2020 8:35 AM SODA MAKER) COVID DMT Interpretation/Recommendations: [facility] Interpretation SERVICES Molecular NAAT Tests [...] These interpretation comment s are based upon all COVID-19 testing the patient has had at [facility], including molecular NAAT testing (more commonly known as PCR testing and Rapid ID Now testing) and antibody testing. It does not take i nto account any testing that a patient has had outside of the [facility] medical record. COVID Results SARS-CoV-2 NAAT (no units) [facility]AT[facility] RY Date Value SERVICES 09/27/2020 Not Detected SARS-CoV-2 Rapid ID NOW (no units) Date Value 10/26/2020 Not Detected 10/20/2020 Not Detected 10/10/2020 Not Detected 10/02/2020 Not Detected 09/26/2020 Not Detected 09/20/2020 Positive (A) 08/28/2020 Not Detected 08/23/2020 Not Detected CoV-2 IgG (no units) Date Value 09/27/2020 Positive (A) Specimen Swab - NASOPHARYNGEAL SWAB Performing Organization Address City/State/Zipcode Phone Number [facility] CLIA: [id number] [place] [address] [place] [address] COVID-19 (ID NOW RAPID TESTING) (10/26/2020 8:35 AM SODA MAKER) SARS-CoV-2 Rapid ID Not Detected Not Detected [facility] NOW SERVICES Specimen Swab - NASOPHARYNGEAL SWAB Narrative Performed At ID NOW COVID-19 Assay is an isothermal nucleic acid [facility] amplification test intended for the qualitative detect ion of nucleic acid from SARS-CoV-2 viral RNA in nasopharynge al (INSPECTION ENGINEER) specimens. It is used under Emergency Use [...] indicated. Performing Organization Address City/State/Zipcode Phone Number [facility] CLIA: [id number] [place] [address] [place] [address] POCT GLUCOSE (AUTOMATED) (10/26/2020 5:44 AM SODA MAKER) Pathologist Sig nature POCT GLU 70 70 - 110 mg/dL [facility] Specimen Blood Performing Organization Address City/[facility]/Zipcode Phone Number [facility] CLIA: [id number] [place] [address] [place] [address] [place] PHOSPHORUS (10/26/2020 4:01 AM SODA MAKER) Pathologist Sig nature PHOSPHORUS 3.0 2.5 - 5.0 mg/dL [facility] SERVICES Specimen Blood - ARM, RIGHT Performing Organization Address [facility]/Zipcode Phone Number [facility] CLIA: [id number] [place] [address] [place] [address] BASIC METABOLIC PANEL (NA, K, CL, CO2, GLUCOSE, BUN, CREATININE, CA) (10/26/2020 4:01 AM SODA MAKER) NA 139 135 - 145 [facility] mmol/L SERVICES K 3.2 (L) 3.5 - 5.0 [facility] mmol/L SERVICES CL 103 98 - 108 mmol/L [facility] SERVICES CO2 TOTAL 34 (H) 23 - 31 mmol/L [facility] SERVICES AGAP 2 2 - 16 [facility] SERVICES BUN 23 7 - 23 mg/dL [facility] SERVICES GLUCOSE 31 (LL) 70 - 110 mg/dL [facility] SERVICES CREATININE 0.48 (L) 0.60 - 1.25 [facility] mg/dL SERVICES CALCIUM 7.2 (L) 8.6 - 10.6 [facility] mg/dL SERVICES eGFR Calculation 197.2 mL/min/1.73m2 [facility] (Non- SERVICES [place]) eGFR Calculation 239.0 mL/min/1.73m2 [facility] () SERVICES Specimen Blood - ARM, RIGHT Narrative Performed At [employer] of Glomerular Filtration Rate (GFR) and St aging [facility] SERVICES of Kidney Disease* + + [...] in imaging tests) . Performing Organization Address [facility] Phone Number [facility] CLIA: [id number] [place] [id number] [address] [place] [address] POCT GLUCOSE (AUTOMATED) (10/25/2020 4:48 AM SODA MAKER) Pathologist [facility] R&V POCT GLU 332 (H) 70 - 110 mg/dL [facility] Specimen Blood Performing Organization Address [facility] Phone Number [facility] CLIA: [id number] [place] [address] [phone] 301 [facility] PHOSPHORUS (10/25/2020 3:48 AM SODA MAKER) Pathologist [facility] R&V PHOSPHORUS 3.1 2.5 - 5.0 mg/dL [facility] Specimen Blood - ARM, RIGHT Performing Organization Address [facility] [place] Phone Number [facility] CLIA: [id number] [place], [place] [id number] [address] [place] [address] BASIC METABOLIC PANEL (NA, K, CL, CO2, GLUCOSE, BUN, CREATININE, CA) (10/25/2020 3:48 AM SODA MAKER) NA 136 135 - 145 [facility] mmol/L SERVICES K 3.5 3.5 - 5.0 [facility] mmol/L SERVICES CL 102 98 - 108 mmol/L [facility] CO2 TOTAL 34 (H) 23 - 31 mmol/L [facility] AGAP <1 (L) 2 - 16 [facility] BUN 22 7 - 23 mg/dL [facility] GLUCOSE 51 (L) 70 - 110 mg/dL [facility] CREATININE 0.46 (L) 0.60 - 1.25 [facility] mg/dL SERVICES CALCIUM 7.2 (L) 8.6 - 10.6 [facility] mg/dL SERVICES eGFR Calculation 207.2 mL/min/1.73m2 [facility] (Non- SERVICES [place]) eGFR Calculation 251.1 mL/min/1.73m2 [facility] () SERVICES Specimen Blood - ARM, RIGHT Narrative Performed At Association of Glomerular Filtration Rate (GFR) and St aging [facility] of Kidney Disease* + + [...] . Performing Organization Address City/State/Zipcode Phone Number [facility] CLIA: [id number] [place], [place] [id number] [address] [place] [address] BASIC METABOLIC PANEL (NA, K, CL, CO2, GLUCOSE, BUN, CREATININE, CA) (10/24/2020 5:24 AM SODA MAKER) NA 133 (L) 135 - 145 [facility] mmol/L SERVICES K 4.5 3.5 - 5.0 [facility] mmol/L SERVICES CL 99 98 - 108 mmol/L [facility] SERVICES CO2 TOTAL 37 (H) 23 - 31 mmol/L [facility] SERVICES AGAP <1 (L) 2 - 16 [facility] SERVICES BUN 13 7 - 23 mg/dL [facility] SERVICES GLUCOSE 56 (L) 70 - 110 mg/dL [facility] SERVICES CREATININE 0.46 (L) 0.60 - 1.25 [facility] mg/dL SERVICES CALCIUM 7.2 (L) 8.6 - 10.6 [facility] mg/dL SERVICES eGFR Calculation 207.2 mL/min/1.73m2 [facility] (Non- SERVICES [place]) eGFR Calculation 251.1 mL/min/1.73m2 [facility] () SERVICES Specimen Blood - ARM, RIGHT Narrative Performed At Association of Glomerular Filtration Rate (GFR) and St aging [facility] SERVICES of Kidney Disease* + + +------- ------ + | GFR (mL/min/1.73 m2) | With Kidney Damage | [facility] Kidney Damage + + +------- ------ [...] . Performing Organization Address City/State/Zipcode Phone Number [facility] CLIA: [id number] [place] [address] [place] [address] PHOSPHORUS (10/24/2020 5:24 AM SODA MAKER) Pathologist Sig nature PHOSPHORUS 2.4 (L) 2.5 - 5.0 mg/dL [facility] SERVICES Specimen Blood - ARM, RIGHT Performing Organization Address [facility]/Zipcode Phone Number [facility] CLIA: [id number] [place] [address] [place] [address] PHOSPHORUS (10/23/2020 4:57 AM SODA MAKER) Pathologist Sig nature PHOSPHORUS 1.6 (L) 2.5 - 5.0 mg/dL [facility] SERVICES Specimen Blood - ARM, RIGHT Performing Organization Address City/State/Zipcode Phone Number [facility] CLIA: [id number] [place] [address] [place] [address] MAGNESIUM (10/23/2020 4:57 AM SODA MAKER) Pathologist Sig nature MAGNESIUM 1.8 1.7 - 2.4 mg/dL [facility] SERVICES Specimen Blood - ARM, RIGHT Performing Organization Address [facility] Phone Number [facility] CLIA: [id number] [place] [address] [place] [address] COMP. METABOLIC PANEL (31422) (10/23/2020 4:57 AM SODA MAKER) NA 131 (L) 135 - 145 [facility] mmol/L SERVICES K 3.2 (L) 3.5 - 5.0 [facility] mmol/L SERVICES CL 96 (L) 98 - 108 mmol/L [facility] SERVICES CO2 TOTAL 36 (H) 23 - 31 mmol/L [facility] SERVICES AGAP <1 (L) 2 - 16 [facility] SERVICES BUN 11 7 - 23 mg/dL [facility] SERVICES GLUCOSE 85 70 - 110 mg/dL [facility] SERVICES CREATININE 0.37 (L) 0.60 - 1.25 [facility] mg/dL SERVICES TOTAL BILI 1.3 (H) 0.1 - 1.1 mg/dL [facility] SERVICES CALCIUM 6.7 (L) 8.6 - 10.6 [facility] mg/dL SERVICES T PROTEIN 4.6 (L) 6.3 - 8.2 g/dL [facility] SERVICES ALBUMIN 1.9 (L) 3.5 - 5.0 g/dL [facility] SERVICES ALK PHOS 457 (H) 34 - 122 U/L [facility] SERVICES ALTv 152 (H) 5 - 50 U/L [facility] SERVICES AST(SGOT) 97 (H) 13 - 40 U/L [facility] SERVICES eGFR Calculation 266.3 mL/min/1.73m2 [facility] (Non- SERVICES [place]) eGFR Calculation 322.8 mL/min/1.73m2 [facility] () SERVICES Specimen Blood - ARM, RIGHT Narrative Performed At [facility] of Glomerular Filtration Rate (GFR) and St aging [facility] SERVICES of Kidney Disease* + + [...] . Performing Organization Address City/State/Zipcode Phone Number [facility] CLIA: [id number] [place] [address] [place] [address] CBC WITH DIFF (10/23/2020 4:57 AM SODA MAKER) WBC 3.47 (L) 4.20 - 10.70 [facility] 10*3/L SERVICES RBC 3.70 (L) 4.26 - 5.52 [facility] 10*6/L SERVICES HGB 10.3 (L) 12.2 - 16.4 [facility] g/dL SERVICES HCT 31.2 (L) 38.4 - 49.3 % [facility] SERVICES MCV 84.3 81.7 - 95.6 fL [facility] SERVICES MCH 27.8 26.1 - 32.7 pg [facility] MCHC 33.0 31.2 - 35.0 [facility] g/dL SERVICES RDW-SD 41.2 38.5 - 51.6 fL [facility] RDW-CV 13.3 12.1 - 15.4 % [facility] PLT 135 (L) 150 - 328 [facility] 10*3/L SERVICES MPV 10.8 9.8 - 13.0 fL [facility] SERVICES NRBC/100 WBC 0.0 0.0 - 10.0 [facility] /100 WBCs SERVICES NRBC x10^3 <0.01 10*3/L [facility] SERVICES GRAN MAT (NEUT) % 53.0 % [facility] IMM GRAN % 0.60 % [facility] LYMPH % 39.2 % [facility] MONO % 7.2 % [facility] EOS % 0.0 % [facility] BASO % 0.0 % [facility] GRAN MAT 1.84 (L) 1.99 - 6.95 [facility] x10^3(ANC) 10*3/uL SERVICES IMM GRAN x10^3 <0.03 0.00 - 0.06 [facility] 10*3/uL SERVICES LYMPH x10^3 1.36 1.09 - 3.23 [facility] 10*3/uL SERVICES MONO x10^3 0.25 (L) 0.36 - 1.02 [facility] 10*3/uL SERVICES EOS x10^3 <0.03 (L) 0.06 - 0.53 [facility] 10*3/uL SERVICES BASO x10^3 <0.03 0.01 - 0.09 [facility] 10*3/uL SERVICES IVAN CELLS 2+ (A) (none) [facility] SERVICES BANDS Increased (A) [facility] SERVICES TOXIC CHANGES Present (A) [facility] SERVICES Specimen Blood - ARM, RIGHT Performing Organization Address City/State/Zipcode Phone Number [facility] CLIA: [id number] [place] [address] [place] [address] Blvd MAGNESIUM (10/22/2020 3:44 AM SODA MAKER) Pathologist Sig nature MAGNESIUM 1.3 (L) 1.7 - 2.4 mg/dL [facility] SERVICES Specimen Blood - ARM, RIGHT Performing Organization Address City/State/Zipcode Phone Number [facility] CLIA: [id number] [place], [place] [id number] [address] [place] [address] COMP. METABOLIC PANEL (63630) (10/22/2020 3:44 AM SODA MAKER) NA 131 (L) 135 - 145 [facility] mmol/L SERVICES K 2.9 (LL) 3.5 - 5.0 [facility] mmol/L SERVICES CL 97 (L) 98 - 108 mmol/L [facility] SERVICES CO2 TOTAL 35 (H) 23 - 31 mmol/L [facility] SERVICES AGAP <1 (L) 2 - 16 [facility] SERVICES BUN 17 7 - 23 mg/dL [facility] SERVICES GLUCOSE 105 70 - 110 mg/dL [facility] SERVICES CREATININE 0.36 (L) 0.60 - 1.25 [facility] mg/dL SERVICES TOTAL BILI 1.5 (H) 0.1 - 1.1 mg/dL [facility] SERVICES CALCIUM 6.7 (L) 8.6 - 10.6 [facility] mg/dL SERVICES T PROTEIN 4.5 (L) 6.3 - 8.2 g/dL [facility] SERVICES ALBUMIN 1.9 (L) 3.5 - 5.0 g/dL [facility] SERVICES ALK PHOS 396 (H) 34 - 122 U/L [facility] SERVICES ALTv 144 (H) 5 - 50 U/L [facility] SERVICES AST(SGOT) 79 (H) 13 - 40 U/L [facility] SERVICES eGFR Calculation 274.9 mL/min/1.73m2 [facility] (Non- SERVICES [place]) eGFR Calculation 333.1 mL/min/1.73m2 [facility] () SERVICES Specimen Blood - ARM, RIGHT Narrative Performed At [facility] of Glomerular Filtration Rate (GFR) and St aging [facility] SERVICES of Kidney Disease* + + [...] City/State/Zipcode Phone Number [facility] CLIA: [id number] [place] [address] [place] [address] CBC WITH DIFF (10/22/2020 3:44 AM SODA MAKER) WBC 3.53 (L) 4.20 - 10.70 [facility] 10*3/L SERVICES RBC 3.61 (L) 4.26 - 5.52 [facility] 10*6/L SERVICES HGB 10.0 (L) 12.2 - 16.4 [facility] g/dL SERVICES HCT 29.5 (L) 38.4 - 49.3 % [facility] MCV 81.7 81.7 - 95.6 fL [facility] MCH 27.7 26.1 - 32.7 pg [facility] MCHC 33.9 31.2 - 35.0 [facility] g/dL SERVICES RDW-SD 39.8 38.5 - 51.6 fL [facility] RDW-CV 13.4 12.1 - 15.4 % [facility] PLT 126 (L) 150 - 328 [facility] 10*3/L SERVICES MPV 11.0 9.8 - 13.0 fL [facility] NRBC/100 WBC 0.6 0.0 - 10.0 [facility] /100 WBCs SERVICES NRBC x10^3 0.02 10*3/L [facility] GRAN MAT (NEUT) % 54.7 % [facility] IMM GRAN % 0.30 % [facility] LYMPH % 35.1 % [facility] MONO % 9.6 % [facility] EOS % 0.3 % [facility] BASO % 0.0 % [facility] GRAN MAT x10^3(ANC) 1.93 (L) 1.99 - 6.95 [facility] 10*3/uL SERVICES IMM GRAN x10^3 <0.03 0.00 - 0.06 [facility] 10*3/uL SERVICES LYMPH x10^3 1.24 1.09 - 3.23 [facility] 10*3/uL SERVICES MONO x10^3 0.34 (L) 0.36 - 1.02 [facility] 10*3/uL SERVICES EOS x10^3 <0.03 (L) 0.06 - 0.53 [facility] 10*3/uL SERVICES BASO x10^3 <0.03 0.01 - 0.09 [facility] 10*3/uL SERVICES IVAN CELLS 3+ (A) (none) [facility] SERVICES SCHISTOCYTES 1+ (A) [facility] SERVICES BANDS Increased (A) [facility] SERVICES TOXIC CHANGES Present (A) [facility] SERVICES Specimen Blood - ARM, RIGHT Performing Organization Address City/[facility] Phone Number [facility] CLIA: [id number] [place] [address] [place] [address] POCT GLUCOSE (AUTOMATED) (10/21/2020 2:15 PM SODA MAKER) Pathologist [facility] POCT GLU 220 (H) 70 - 110 mg/dL [facility] Specimen Blood Performing Organization Address [facility] Phone Number [facility] CLIA: [id number] [place] [address] [place] [address] PROTHROMBIN TIME / INR (10/21/2020 4:15 AM SODA MAKER) PROTIME PATIENT 17.2 (H) 10.1 - 12.6 [facility] Seconds SERVICES INR 1.5Comment: Normal [facility] INR <1.1; Warfarin SERVICES Therapeutic range 2.0 to 3.0 or 2.5 to 3.5, depending upon the indications. Specimen Blood - ARM, RIGHT Performing Organization Address [facility] Phone Number [facility] CLIA: [id number] [place], [place] [address] [address] [facility] MAGNESIUM (10/21/2020 4:15 AM SODA MAKER) Pathologist Sig nature MAGNESIUM 1.4 (L) 1.7 - 2.4 mg/dL [facility] SERVICES Specimen Blood - ARM, RIGHT Performing Organization Address City/State/Zipcode Phone Number [facility] CLIA: [id number] [place] [address] [place] [address] COMP. METABOLIC PANEL (63726) (10/21/2020 4:15 AM SODA MAKER) NA 133 (L) 135 - 145 [facility] mmol/L SERVICES K 3.0 (L) 3.5 - 5.0 [facility] mmol/L SERVICES CL 99 98 - 108 mmol/L [facility] SERVICES CO2 TOTAL 32 (H) 23 - 31 mmol/L [facility] SERVICES AGAP 2 2 - 16 [facility] SERVICES BUN 21 7 - 23 mg/dL [facility] SERVICES GLUCOSE 86 70 - 110 mg/dL [facility] SERVICES CREATININE 0.42 (L) 0.60 - 1.25 [facility] mg/dL SERVICES TOTAL BILI 1.7 (H) 0.1 - 1.1 mg/dL [facility] SERVICES CALCIUM 6.9 (L) 8.6 - 10.6 [facility] mg/dL SERVICES T PROTEIN 5.0 (L) 6.3 - 8.2 g/dL [facility] SERVICES ALBUMIN 2.1 (L) 3.5 - 5.0 g/dL [facility] SERVICES ALK PHOS 468 (H) 34 - 122 U/L [facility] SERVICES ALTv 167 (H) 5 - 50 U/L [facility] SERVICES AST(SGOT) 83 (H) 13 - 40 U/L [facility] SERVICES eGFR Calculation 230.1 mL/min/1.73m2 [facility] (Non- SERVICES [place]) eGFR Calculation 278.9 mL/min/1.73m2 [facility] () SERVICES Specimen Blood - ARM, RIGHT Narrative Performed At [facility] Glomerular Filtration Rate (GFR) and St aging [facility] SERVICES of Kidney Disease* + + [...] . Performing Organization Address City/State/Zipcode Phone Number [facility] CLIA: [id number] [place], [place] [id number] [address] [place] [address] CBC WITH DIFF (10/21/2020 4:15 AM SODA MAKER) Pathologist Sig nature WBC 3.66 (L) 4.20 - 10.70 [facility] 10*3/L SERVICES RBC 4.01 (L) 4.26 - 5.52 [facility] 10*6/L SERVICES HGB 10.9 (L) 12.2 - 16.4 g/dL [facility] HCT 32.6 (L) 38.4 - 49.3 % [facility] MCV 81.3 (L) 81.7 - 95.6 fL [facility] MCH 27.2 26.1 - 32.7 pg [facility] MCHC 33.4 31.2 - 35.0 g/dL [facility] RDW-SD 40.3 38.5 - 51.6 fL [facility] RDW-CV 13.6 12.1 - 15.4 % [facility] PLT 152 150 - 328 [facility] 10*3/L SERVICES MPV 11.7 9.8 - 13.0 fL [facility] NRBC/100 WBC 0.0 0.0 - 10.0 /100 [facility] WBCs SERVICES NRBC x10^3 <0.01 10*3/L [facility] SEG % 39 33 - 76 % [facility] BAND % 13 (H) 0 - 1 % [facility] LYMPH % 42 14 - 54 % [facility] MONO % 6 (H) 0 - 4 % [facility] ANC 1.91 (L) 1.99 - 6.95 [facility] 10*3/uL SERVICES SCHISTOCYTES 1+ (A) [facility] SERVICES TOXIC CHANGES Present (A) [facility] SERVICES Specimen Blood - ARM, RIGHT Performing Organization Address City/State/Zipcode Phone Number [facility] CLIA: [id number] [place] [address] [place] [address] LAB ONLY COVID INTERPRETATION (10/20/2020 5:08 PM SODA MAKER) COVID DMT Interpretation/Recommendations: [facility] Interpretation SERVICES Molecular NAAT Tests [...] These interpretation comment s are based upon all COVID-19 testing the patient has had at [facility], including molecular NAAT testing (more commonly known as PCR testing and Rapid ID Now testing) and antibody testing. It does not take i nto account any testing that a patient has had outside of the [facility] medical record. COVID Results SARS-CoV-2 NAAT (no units) [facility] RY Date Value SERVICES 09/27/2020 Not Detected SARS-CoV-2 Rapid ID NOW (no units) Date Value 10/20/2020 Not Detected 10/10/2020 Not Detected 10/02/2020 Not Detected 09/26/2020 Not Detected 09/20/2020 Positive (A) 08/28/2020 Not Detected 08/23/2020 Not Detected CoV-2 IgG (no units) Date Value 09/27/2020 Positive (A) Specimen Swab - NASOPHARYNGEAL SWAB Performing Organization Address City/State/Zipcode Phone Number [facility] CLIA: [id number] [place] [address] [place] [address] COVID-19 (ID NOW RAPID TESTING) (10/20/2020 5:08 PM SODA MAKER) SARS-CoV-2 Rapid ID Not Detected Not Detected [facility] NOW SERVICES Specimen Swab - NASOPHARYNGEAL SWAB Narrative Performed At ID NOW COVID-19 Assay is an isothermal nucleic acid [facility] amplification test intended for the qualitative detect ion of nucleic acid from SARS-CoV-2 viral RNA in nasopharynge al (INSPECTION ENGINEER) specimens. It is used under Emergency Use [...] indicated. Performing Organization Address City/State/Zipcode Phone Number [facility] CLIA: [id number] [place] [address] [address] [facility] POCT GLUCOSE (AUTOMATED) (10/19/2020 10:03 AM SODA MAKER) Pathologist Sig nature POCT GLU 135 (H) 70 - 110 mg/dL [facility] Specimen Blood Performing Organization Address City/[facility]/Zipcode Phone Number [facility] CLIA: [id number] [place] [address] [place] [address] POCT GLUCOSE (AUTOMATED) (10/19/2020 8:21 AM SODA MAKER) Pathologist Sig nature POCT GLU 163 (H) 70 - 110 mg/dL [facility] Specimen Blood Performing Organization Address [facility] Phone Number [facility] CLIA: [id number] [place] [address] [place] [address] CBC WITH DIFF (10/19/2020 8:18 AM SODA MAKER) WBC 3.81 (L) 4.20 - 10.70 [facility] 10*3/L SERVICES RBC 3.62 (L) 4.26 - 5.52 [facility] 10*6/L SERVICES HGB 9.9 (L) 12.2 - 16.4 [facility] g/dL SERVICES HCT 30.1 (L) 38.4 - 49.3 % [facility] SERVICES MCV 83.1 81.7 - 95.6 [facility] fL SERVICES MCH 27.3 26.1 - 32.7 [facility] pg SERVICES MCHC 32.9 31.2 - 35.0 [facility] g/dL SERVICES RDW-SD 41.9 38.5 - 51.6 [facility] fL SERVICES RDW-CV 13.7 12.1 - 15.4 % [facility] SERVICES PLT 93 (L) 150 - 328 [facility] 10*3/L SERVICES MPV 11.9 9.8 - 13.0 fL [facility] IPF % 4.4Comment: Platelet 1.2 - 10.7 % [facility] count measured by SERVICES fluorescence method. NRBC/100 WBC 0.5 0.0 - 10.0 [facility] /100 WBCs SERVICES NRBC x10^3 0.02 10*3/L [facility] GRAN MAT (NEUT) % 63.5 % [facility] IMM GRAN % 0.30 % [facility] LYMPH % 30.2 % [facility] MONO % 6.0 % [facility] EOS % 0.0 % [facility] BASO % 0.0 % [facility] GRAN MAT 2.42 1.99 - 6.95 [facility] x10^3(ANC) 10*3/uL SERVICES IMM GRAN x10^3 <0.03 0.00 - 0.06 [facility] 10*3/uL SERVICES LYMPH x10^3 1.15 1.09 - 3.23 [facility] 10*3/uL SERVICES MONO x10^3 0.23 (L) 0.36 - 1.02 [facility] 10*3/uL SERVICES EOS x10^3 <0.03 (L) 0.06 - 0.53 [facility] 10*3/uL SERVICES BASO x10^3 <0.03 0.01 - 0.09 [facility] 10*3/uL SERVICES IVAN CELLS 2+ (A) (none) [facility] BANDS MARKED INCREASED (A) [facility] DOHLE BODIES Present (A) [facility] Specimen Blood - ARM, LEFT Performing Organization Address City/State/Zipcode Phone Number [facility] CLIA: [id number] [place] [address] [place] [address] POCT GLUCOSE(AGE >30DAYS) (10/19/2020 8:18 AM SODA MAKER) Pathologist Sig nature POCT Glu (age>30days) 163 (A) 70 - 110 mg/dL Specimen Blood - CAPILLARY Urinalysis (10/19/2020 6:34 AM SODA MAKER) Pathologist Sig nature APPEARANCE Turbid (A) Clear [facility] COLOR Yellow Yellow [facility] PH 8.0 4.8 - 8.0 [facility] SERVICES SP GRAVITY 1.014 1.003 - 1.030 [facility] GLU U QUAL Normal Normal [facility] BLOOD 1+ (A) Negative [facility] KETONES Negative Negative [facility] PROTEIN 30 mg/dL (A) Negative [facility] UROBILIN 2.0 mg/dL (A) Normal [facility] BILIRUBIN Negative Negative [facility] NITRITE Negative Negative [facility] LEUK ERICK 500/uL (A) Negative [facility] RBC/HPF 28 (H) 0 - 3 HPF [facility] WBC/HPF >182 (H) 0 - 5 HPF [facility] BACTERIA Many (A) Negative [facility] AMORPHOUS Few (A) Rare HPF [facility] Specimen Urine - URINE, CLEAN CATCH Performing Organization Address [facility] [place] Phone Number [facility] CLIA: [id number] [place], [place] [id number] [address] [place] [address] [facility]AL[facility] ONLY - URINE DRUG (IMMUNOASSAY) - COMPREHENSIVE DRUG SCREEN (10/19/2020 6:34 AM SODA MAKER) AMPHET Negative Negative [facility] KAIT U Negative Negative [facility] BENZO U Negative Negative [facility] Cocaine Metabolite Negative Negative [facility] METHADONE Negative Negative [facility] OPIATES Presumptive Negative [facility] Positive (A) SERVICES PCP Negative Negative [facility] THC Negative Negative [facility] Specimen Urine - URINE, CLEAN CATCH Narrative Performed At Urine Drug Cutoff Ranges [facility] Cocaine: 150 ng/mL Benzodiazepines: 200 ng/mL Methadone: 300 ng/mL Amphetamine: 1,000 ng/mL Opiates: 300 ng/mL Cannabinoids: 50 ng/mL Phencyclidine: 25 ng/mL Barbiturates: 200 ng/mL The results are to be used only for medical (i.e., treatment) purposes. Unconfirmed screening results mus t not be used for non-medical purposes (e.g., employment adina ting, legal testing). Performing Organization Address City/State/[facility] [place] Phone Number [facility] CLIA: [id number] [place], [place] [id number] [address] [place] [address] URINE CULTURE (10/19/2020 6:33 AM SODA MAKER) URINE CULTURE > 100,000 CFU/mL mixed [facility] aerobic organisms - SERVICES suggests endogenous microbial contamination Specimen Urine - URINE, CLEAN CATCH Performing Organization Address [facility] [place] Phone Number [facility] CLIA: [id number] [place] [address] [place] [address] HEPATIC FUNCTION PANEL (33586) (ALB,T.PRO,BILI T,BU/BC,ALT,AST,ALK PHOS) (10/19/2020 6:11 AM SODA MAKER) Pathologist Sig nature TOTAL BILI 1.6 (H) 0.1 - 1.1 mg/dL [facility] BILI UNCON 1.4 (H) 0.1 - 1.1 mg/dL [facility] BILI CONJ 0.0 0.0 - 0.3 mg/dL [facility] T PROTEIN 4.9 (L) 6.3 - 8.2 g/dL [facility] ALBUMIN 2.1 (L) 3.5 - 5.0 g/dL [facility] ALK PHOS 443 (H) 34 - 122 U/L [facility] ALTv 178 (H) 5 - 50 U/L [facility] AST(SGOT) 114 (H) 13 - 40 U/L [facility] Specimen Blood - VENOUS Performing Organization Address [facility] Phone Number [facility] CLIA: [id number] [place] [address] [place] [address] PHOSPHORUS (10/19/2020 6:11 AM SODA MAKER) Pathologist Sig nature PHOSPHORUS 3.5 2.5 - 5.0 mg/dL [facility] Specimen Blood - VENOUS Performing Organization Address [facility] [place] Phone Number [facility] CLIA: [id number] [place] [address] [place] [address] MAGNESIUM (10/19/2020 6:11 AM SODA MAKER) Pathologist Sig nature MAGNESIUM 1.9 1.7 - 2.4 mg/dL [facility] Specimen Blood - VENOUS Performing Organization Address [facility] [place] Phone Number [facility] CLIA: [id number] [place] [address] [place] [address] BASIC METABOLIC PANEL (NA, K, CL, CO2, GLUCOSE, BUN, CREATININE, CA) (10/19/2020 6:11 AM SODA MAKER) NA 136 135 - 145 [facility] mmol/L SERVICES K 3.9Comment: 3.5 - 5.0 [facility] Slight hemolysis mmol/L SERVICES CL 104 98 - 108 [facility] mmol/L SERVICES CO2 TOTAL 30 23 - 31 [facility] mmol/L SERVICES AGAP 2 2 - 16 [facility] BUN 24 (H)Comment: 7 - 23 mg/dL [facility] Slight hemolysis SERVICES GLUCOSE 44 (LL) 70 - 110 [facility] mg/dL SERVICES CREATININE 0.34 (L) 0.60 - 1.25 [facility] mg/dL SERVICES CALCIUM 6.8 (L) 8.6 - 10.6 [facility] mg/dL SERVICES eGFR Calculation 293.6 mL/min/1.73m2 [facility] (Non- SERVICES [place]) eGFR Calculation 355.9 mL/min/1.73m2 [facility] () SERVICES Specimen Blood - VENOUS Narrative Performed At Association of Glomerular Filtration Rate (GFR) and St aging [facility] of Kidney Disease* + + [...] . Performing Organization Address City/State/Zipcode Phone Number [facility] CLIA: [id number] [place] [address] [place] [address] CBC WITH DIFF (10/19/2020 6:11 AM SODA MAKER) Pathologist Sig nature WBC 4.18 (L) 4.20 - 10.70 [facility] 10*3/L SERVICES RBC 3.99 (L) 4.26 - 5.52 [facility] 10*6/L SERVICES HGB 11.1 (L) 12.2 - 16.4 [facility] g/dL SERVICES HCT 33.0 (L) 38.4 - 49.3 % [facility] MCV 82.7 81.7 - 95.6 fL [facility] MCH 27.8 26.1 - 32.7 pg [facility] MCHC 33.6 31.2 - 35.0 [facility] g/dL SERVICES RDW-SD 41.6 38.5 - 51.6 fL [facility] RDW-CV 14.0 12.1 - 15.4 % [facility] PLT 115 (L) 150 - 328 [facility] 10*3/L SERVICES MPV 12.3 9.8 - 13.0 fL [facility] NRBC/100 WBC 0.0 0.0 - 10.0 /100 [facility] WBCs SERVICES NRBC x10^3 <0.01 10*3/L [facility] GRAN MAT (NEUT) % 59.6 % [facility] IMM GRAN % 0.20 % [facility] LYMPH % 33.5 % [facility] MONO % 6.7 % [facility] EOS % 0.0 % [facility] BASO % 0.0 % [facility] GRAN MAT x10^3(ANC) 2.49 1.99 - 6.95 [facility] 10*3/uL SERVICES IMM GRAN x10^3 <0.03 0.00 - 0.06 [facility] 10*3/uL SERVICES LYMPH x10^3 1.40 1.09 - 3.23 [facility] 10*3/uL SERVICES MONO x10^3 0.28 (L) 0.36 - 1.02 [facility] 10*3/uL SERVICES EOS x10^3 <0.03 (L) 0.06 - 0.53 [facility] 10*3/uL SERVICES BASO x10^3 <0.03 0.01 - 0.09 [facility] 10*3/uL SERVICES Specimen Blood - VENOUS Performing Organization Address City/State/Zipcode Phone Number [facility] CLIA: [id number] [place] [address] [place] [address] documented in this encounter Visit Diagnoses Diagnosis Achalasia - Primary Achalasia and cardiospasm Pain Generalized pain Esophageal dysphagia Dysphagia, pharyngoesophageal phase Severe protein-calorie malnutrition Other severe protein-calorie malnutritio n Cachexia Hypoglycemia Hypoglycemia, unspecified Fever, unspecified fever cause Hypokalemia Hypopotassemia Hypocalcemia Hypophosphatemia Disorders of phosphorus metabolism Urinary tract infection without hematuri a, site unspecified Tachycardia Tachycardia, unspecified Confusion Unspecified psychosis Confusion and disorientation Bipolar 1 disorder Bipolar I disorder, most recent episode (or current) unspecified Candidemia Disseminated candidiasis Cytomegalovirus (CMV) viremia Cytomegaloviral disease Immunosuppressed status Unspecified disorder of immune mechanism Aspiration pneumonia Pneumonitis due to inhalation of food or vomitus Unstageable pressure ulcer of sacral reg ion Pressure ulcer, lower back documented in this encounter Administered Medications Medication Order MAR Action Action Date Dose Rate Site calcium carbonate 500 mg RINCON Given 11/23/2020 5:04 PM SODA MAKER 500 mg CA/5 mL 500 mg/5 mL (1,250 mg/5 mL) suspension 500 mg 500 mg, Enteral, BID MEALS, First dose (after last modification) on Joss[place] 10/30/20 at 1215, Until Discontinued, Routine Given 11/23/2020 8:33 AM SODA MAKER 500 mg Given 11/22/2020 3:44 PM SODA MAKER 500 mg dextrose 50 % in water (D50W) injection 50 mL Given 11/07/2020 6:26 PM SODA MAKER 25 mL 50 mL, Slow IV Push, PRN, Starting 11/03/20 at 0353, Until Discontinued, ROBERTO, Blood Glucose < or = 70 mg/dL and patient is unable to swallow or has mental status changes. Given 11/04/2020 7:12 AM SODA MAKER 50 mL enoxaparin (LOVENOX) injection 40 mg Given 11/23/2020 8:32 AM SODA MAKER 40 mg Abdo men-SC 40 mg, Subcutaneous, Q24H, First dose on Tue11/16/20 at 1330, Until Discontinued, Routine Given 11/22/2020 7:44 AM SODA MAKER 40 mg Abdo men-SC Given 11/21/2020 2:26 PM SODA MAKER 40 mg Abdo men-SC ergocalciferol (vitamin D2) (CALCIDOL) Given 8:32 AM SODA MAKER 2,000 Units 200 mcg/mL (8,000 unit/mL) oral drops 2,000 Units 2,000 Units, Oral, DAILY, First dose (after last modification) on Tue11/06/20 at 0900, Until Discontinued, Routine Given 11/22/2020 7:45 AM SODA MAKER 2,000 Units Given 11/21/2020 9:45 AM SODA MAKER 2,000 Units foLIC acid (FOLATE) tablet 1 mg Given 11/23/2020 8:33 AM SODA MAKER 1 mg 1 mg, Enteral, DAILY, First dose on Tue10/30/20 at 0915, Until Discontinued, Routine Given 11/22/2020 7:46 AM SODA MAKER 1 mg Given 11/21/2020 9:46 AM SODA MAKER 1 mg gabapentin (NEURONTIN) capsule 100 mg Given 11/23/2020 5:04 PM SODA MAKER 100 mg 100 mg, Oral, TID, First dose (after last modification) on Tue11/18/20 at 1400, Until Discontinued, Routine Given 11/23/2020 8:33 AM SODA MAKER 100 mg Given 11/22/2020 9:51 PM SODA MAKER 100 mg HYDROcodone-acetaminophen (HYCET) 7.5-325 Given 11/23/2020 2:36 AM SODA MAKER 10 mg mg/15 mL solution 10 mg 10 mg, Oral, Q6HPRN, Starting Tue11/12/20 at 0822, Until Discontinued, Routine, Pain (scale 7-10) Given 11/21/2020 9:18 AM SODA MAKER 10 mg Given 11/17/2020 6:46 PM SODA MAKER 10 mg HYDROcodone-acetaminophen (HYCET) 7.5-325 Given 11/23/2020 1:08 PM SODA MAKER 7.5 mg mg/15 mL solution 7.5 mg 7.5 mg, Enteral, Q6HPRN, Starting Tue10/29/20 at 1004, Until Discontinued, Routine, Pain (scale 4-6) Given 11/23/2020 5:49 AM SODA MAKER 7.5 mg Given 11/22/2020 10:24 PM SODA MAKER 7.5 mg hydrOXYzine (ATARAX) 10 mg/5 mL solution 25 Given 11/23/2020 5:04 PM SODA MAKER 25 mg mg 25 mg, Enteral, Q6HPRN, Starting 11/22/20 at 0929, Until Discontinued, Routine, Anxiety Given 11/23/2020 2:26 AM SODA MAKER 25 mg Given 11/22/2020 3:43 PM SODA MAKER 25 mg ipratropium-albuteroL (DUONEB) 0.5 mg-3 mg(2.5 Given 0 11/23/2020 12:08 PM SODA MAKER 3 mL mg base)/3 mL nebulizer solution 3 mL 3 mL, Inhalation, Q6H ABX, First dose (after last modification) on 11/09/20 at 0200, Until Discontinued, Routine Given 11/23/2020 7:13 AM SODA MAKER 3 mL Given 11/23/2020 1:12 AM SODA MAKER 3 mL lidocaine (LIDODERM) 5 % (700 mg/patch) Applied 11/23/2020 8: 32 AM SODA MAKER 1 Patch patch 1 Patch 1 Patch, Topical, Administer over 12 Hours, DAILY, First dose on [place] 10/19/20 at 0900, Until Discontinued, Routine Applied 11/22/2020 7:45 AM SODA MAKER 1 Patch Applied 11/21/2020 9:45 AM SODA MAKER 1 Patch lidocaine 1% (PF) (XYLOCAINE) injection 5 mL 5 mL, Subcutaneous, PRN, Starting Mon at 1211, Until Discontinued, Routine, Local anesthesia LORazepam (ATIVAN) injection 2 mg Given 11/20/2020 2:54 PM SODA MAKER 2 mg 2 mg, Slow IV Push, PRN - SEE INSTRUCTIONS, Starting [facility] 11/20/20 at 1445, Until Discontinued, Routine, . For second dose of Lorazepam challenge for catatonia, if needed. magnesium oxide (MAG-OX 400) 40 mg/mL oral Given 11/23/2020 8:29 AM SODA MAKER 400 mg suspension 400 mg 400 mg, Oral, DAILY, First dose on 11/17/20 at 0900, Until Discontinued, Routine Given 11/22/2020 7:44 AM SODA MAKER 400 mg Given 11/21/2020 9:45 AM SODA MAKER 400 mg methocarbamol (ROBAXIN) 50 mg/mL oral Given 11/23/2020 5:04 PM SODA MAKER 500 mg suspension 500 mg 500 mg, Enteral, TID, First dose (after last modification) on Tue11/17/20 at 1400, Until Discontinued, Routine Given 11/23/2020 8:29 AM SODA MAKER 500 mg Given 11/22/2020 9:51 PM SODA MAKER 500 mg multivitamin (CENTRUM) solution 15 mL Given 11/23/2020 8:33 AM SODA MAKER 15 mL 15 mL, Enteral, DAILY, First dose (after last modification) on Tue10/30/20 at 0915, Until Discontinued, Routine Given 11/22/2020 7:45 AM SODA MAKER 15 mL Given 11/21/2020 9:47 AM SODA MAKER 15 mL NaCl 0.9% (NS) injection 10 mL 10 mL, Slow IV Push, PRN, Starting Tue11/07/20 at 1128 , Until Discontinued, Routine, 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 (NICODERM) 7 mg/24 hr patch 1 Given 11/19/2020 5:00 AM SODA MAKER 1 Patch Patch 1 Patch, Topical, Administer over 24 Hours, [id number], Starting Tue11/04/20 at 1230, Until Discontinued, Routine, Tobacco cravings Polyethylene Glycol 3350 (MIRALAX) powde r 17 g Given 11/23/2020 8:33 AM SODA MAKER 17 g 17 g, Oral, DAILY, First dose on Tue11/11/20 at 0900, Until Discontinued, Routine Given 11/22/2020 7:44 AM SODA MAKER 17 g Given 11/21/2020 9:46 AM SODA MAKER 17 g risperiDONE (RISPERDAL) tablet 0.75 mg Given 11/23/2020 8:33 AM SODA MAKER 0.75 mg 0.75 mg, Oral, BID, First dose (after last modification) on Tue11/20/20 at 2000, Until Discontinued, Routine Given 11/22/2020 9:51 PM SODA MAKER 0.75 mg Given 11/22/2020 6:21 AM SODA MAKER 0.75 mg sodium hypochlorite 0.025% (Dakin's) kayley ution Given 11/23/2020 1:08 PM SODA MAKER Topical, BIDPRN, Starting Tue11/05/20 at 1514, Until Discontinued, Routine, for wound care Given 11/22/2020 3:31 PM SODA MAKER Applied 11/21/2020 9:19 PM SODA MAKER thiamine (VITAMIN B1) tablet 100 mg Given 11/23/2020 8:33 AM SODA MAKER 100 mg 100 mg, Enteral, BID, First dose on Tue10/28/20 at 2000, Until Discontinued, Routine Given 11/22/2020 9:57 PM SODA MAKER 100 mg Given 11/22/2020 7:45 AM SODA MAKER 100 mg vitamin B-12 (CYANOCOBALAMIN) tablet Given 11/23/2020 8:[address] 1,000 mcg 1,000 mcg 1,000 mcg, Enteral, DAILY, First dose on Josseline 10/30/20 at 0915, Until Discontinued, Routine Given 11/22/2020 7:45 AM SODA MAKER 1,000 mcg Given 11/21/2020 9:45 AM SODA MAKER 1,000 mcg zinc oxide 20 % ointment Given 11/17/2020 9:39 AM SODA MAKER Topical, PRN, Starting 11/05/20 at 1513, Until Discontinued, Routine, for wound Given 11/17/2020 3:37 AM SODA MAKER Given 11/16/2020 7:57 PM SODA MAKER Medication Order MAR Action Action Date Dose Rate Site albumin (ALBUMINAR 25%) 25 % Given 11/02/2020 9:20 AM SODA MAKER 25 g injection 25 g 25 g, IV Infusion, ONCE, 1 dose, [place] 11/02/20 at 0830, 100 mL, Indication: NEPHROTIC SYNDROME (ACUTE, SEVERE PERIPHERAL OR PULMONARY EDEMA), Comments: Short-term use of albumin in combination with diuretic therapy when: serum albumin <2 g/dL and optimal diuretic therapy alone has failed calcium gluconate 1 g in NaCl 50 mL (ISO-OSM) Given 10/30/19 9:07 PM SODA MAKER 1 g RTU IV infusion 1 g 1 g, IV Infusion, ONCE, 1 dose, Josseline 10/30/20 at 2000, Routine cefTRIAXone (ROCEPHIN) 1,000 mg in NaCl Given 11/04/2020 8:40 P M SODA MAKER 1,000 mg 0.9% (NS) 50 mL MINI-BAG 1,000 mg, IV Piggyback, Q24H ABX, First dose on 11/03/20 at 2045, Until Discontinued, 50 mL, Reason for Anti-Infective: Documented Infection, Documented Infection Site: Urine, Duration of Therapy: 7 days Given 11/03/2020 8:53 PM SODA MAKER 1,000 mg clostridium botulinum toxin Given by Provider 10/27/2020 2:[address] 100 Units (BOTOX) injection 100 Units 100 Units, Infiltration, ONCE, 1 dose, Tue10/27/20 at 1415, Routine, cleaning team member approving Restricted medication: TAB JORDAN D5W 0.45% NaCl (1/2NS) IV Dose/Rate Verify 11/11/2020 9:12 AM SODA MAKER 50 mL/hr infusion 1,000 mL at 50 mL/hr, 1,000 mL, IV Infusion, CONTINUOUS, Starting Tue11/03/20 at 0500, Until Tue11/11/20 at 2214, Routine New Bag 11/10/2020 10:05 PM SODA MAKER 1,000 mL 50 mL/hr New Bag 11/06/2020 10:20 AM SODA MAKER 1,000 mL 50 mL/hr D5W 0.45% NaCl (1/2NS) IV New Bag 11/13/2020 6:09 PM SODA MAKER 1,000 mL 150 mL/hr infusion 1,000 mL at 150 mL/hr, 1,000 mL, IV Infusion, CONTINUOUS, Starting Tue11/11/20 at 2230, Until Tue11/14/20 at 0748, Routine New Bag 11/12/2020 6:23 PM SODA MAKER 1,000 mL 150 mL/hr New Bag 11/11/2020 11:04 PM SODA MAKER 1,000 mL 150 mL/hr D5W 0.45% NaCl (1/2NS) IV infusion Rate Change 11/14/2020 9:43 AM SODA MAKER 75 mL/hr 1,000 mL at 75 mL/hr, 1,000 mL, IV Infusion, CONTINUOUS, Starting Tue11/14/20 at 0800, Until Tue11/14/20 at 0956, Routine D5W IV infusion 250 mL New Bag 10/26/2020 5:57 AM SODA MAKER 250 mL 999 mL/hr at 999 mL/hr, IV Infusion, CONTINUOUS, Starting Tue10/26/20 at 0545, Until Tue10/26/20 at 0857, STAT D5W IV infusion 250 mL New Bag 10/27/2020 7:56 AM SODA MAKER 250 mL 999 mL/hr at 999 mL/hr, IV Infusion, ONCE, 1 dose, Tue10/27/20 at 0700, Routine D5W IV infusion 250 mL New Bag 10/28/2020 9:32 AM SODA MAKER 250 mL 100 mL/hr at 100 mL/hr, IV Infusion, ONCE, 1 dose, 10/28/20 at 0745, Routine, Use to flush lines before administering sodium phosphate. Please avoid using LR containing solutions in the same IV while administering sodium phosphate. Thank you, D5W-LR IV infusion 1,000 mL Dose/Rate Verify 10/23/2020 8:14 AM SODA MAKER 125 mL/hr at 125 mL/hr, IV Infusion, CONTINUOUS, Starting 10/19/20 at 0500, Until Josseline 10/23/20 at 1724, Routine New Bag 10/23/2020 6:20 AM SODA MAKER 1,000 mL 125 mL/hr New Bag 10/22/2020 10:46 PM SODA MAKER 1,000 mL 125 mL/hr D5W-LR IV infusion 1,000 mL New Bag 10/27/2020 9:07 AM SODA MAKER 1,000 mL 50 mL/hr at 50 mL/hr, IV Infusion, CONTINUOUS, Starting Josseline 10/23/20 at 1730, Until Tue10/27/20 at 1018, Routine New Bag 10/26/2020 3:12 PM SODA MAKER 1,000 mL 50 mL/hr New Bag 10/26/2020 12:24 AM SODA MAKER 1,000 mL 50 mL/hr D5W-LR IV infusion 1,000 mL New Bag 10/28/2020 5:32 AM SODA MAKER 1,000 mL 100 mL/hr at 100 mL/hr, IV Infusion, CONTINUOUS, Starting Tue10/27/20 at 1030, Until Tue10/28/20 at 0715, Routine New Bag 10/27/2020 11:08 AM SODA MAKER 1,000 mL 100 mL/hr D5W-LR IV infusion 1,000 mL New Bag 10/29/2020 12:54 AM SODA MAKER 1,000 mL 50 mL/hr at 50 mL/hr, IV Infusion, CONTINUOUS, Starting Tue10/28/20 at 0730, Until Tue10/29/20 at 0555, Routine New Bag 10/28/2020 7:41 AM SODA MAKER 1,000 mL 50 mL/hr D5W-LR IV infusion 1,000 mL New Bag 10/29/2020 5:25 PM SODA MAKER 1,000 mL 100 mL/hr at 100 mL/hr, IV Infusion, CONTINUOUS, Starting Tue10/29/20 at 0600, Until Josseline 10/30/20 at 0611, Routine New Bag 10/29/2020 5:59 AM SODA MAKER 1,000 mL 100 mL/hr dexMEDEtomidine 400 mcg in Rate Change 11/03/2020 3:00 PM 0.5 mcg /kg/hr 5.6 mL/hr 0.9 % NaCl 100 mL SODA MAKER (PRECEDEX) RTU IV infusion 0.2-1.5 mcg/kg/hr 44.8 kg (2.24-16.8 mL/hr), IV Infusion, TITRATE, Sedation-RASS score (0 to -1), Starting 11/03/20 at 0555, Initiate infusion at 0.2 mcg/kg/hr and titrate by 0.1 mcg/kg/hr every 30 minutes to goal sedation score. Maximum dose = 1.5 mcg/kg/hr. If goal not maintained at maximum allowed dose, contact prescriber., Rate Change 11/03/2020 1:19 PM SODA MAKER 0.2 mcg/kg/hr 2.24 mL/hr New Bag 11/03/2020 11:10 AM SODA MAKER 0.7 mcg/kg/hr 7.84 mL/hr dextrose 50 % in water (D50W) injection 25 mL Given 10/27/2020 11:08 AM SODA MAKER 25 mL 25 mL, Slow IV Push, PRN, Starting 10/19/20 at 0458, Until 11/01/20 at 1859, ROBERTO, Blood Glucose < or = 70 mg/dL and patient is unable to swallow or has mental status changes. dextrose 50 % in water (D50W) injection 50 mL Given 10/19/2020 8:01 AM SODA MAKER 50 mL 50 mL, Intravenous, ONCE, 1 dose, [place] 10/19/20 at 0815, STAT dextrose 50 % in water (D50W) injection 50 mL Given 11/03/2020 4:03 AM SODA MAKER 50 mL 50 mL, Slow IV Push, ONCE, 1 dose, [facility] 11/03/20 at 0500, Routine ergocalciferol (vitamin D2) (CALCIDOL) Given 9:39 AM SODA MAKER 2,000 Units 200 mcg/mL (8,000 unit/mL) oral drops 2,000 Units 2,000 Units, Oral, DAILY, First dose on Josseline 10/30/20 at 1215, Until Discontinued, Routine Given 11/03/2020 8:01 AM SODA MAKER 2,000 Units Given 11/01/2020 8:45 AM SODA MAKER 2,000 Units erythromycin (ILOTYCIN) 5 mg/gram (0.5 Given 11/10/2020 7:3 6 PM SODA MAKER 0.5 Inches %) ophthalmic ointment 0.5 Inch 0.5 Inch, Both Eyes, QID, First dose on Tue11/04/20 at 1600, Until Discontinued, Routine Given 11/10/2020 3:09 PM SODA MAKER 0.5 Inches Given 11/10/2020 11:45 AM SODA MAKER 0.5 Inches FENTanyl PF (SUBLIMAZE (PF)) injection 10 Given 10/19/2020 9:45 AM SODA MAKER 10 mcg mcg 10 mcg, Slow IV Push, ONCE, 1 dose, [place] 10/19/20 at 1030, ROBERTO FENTanyl PF (SUBLIMAZE (PF)) injection 20 Given 10/24/2020 8:43 AM SODA MAKER 20 mcg mcg 20 mcg, Slow IV Push, ONCE, 1 dose, Tue10/24/20 at 0830, Routine FENTanyl PF (SUBLIMAZE (PF)) injection 25 Given 11/08/2020 9:03 PM SODA MAKER 25 mcg mcg 25 mcg, Slow IV Push, ONCE, 1 dose, 11/08/20 at 2200, Routine furosemide (LASIX) injection 10 mg Given 11/02/2020 4:08 AM SODA MAKER 10 mg 10 mg, Slow IV Push, ONCE, 1 dose, [place] 11/02/20 at 0400, Routine furosemide (LASIX) injection 20 mg Given 11/04/2020 6:31 AM SODA MAKER 20 mg 20 mg, Slow IV Push, ONCE, 1 dose, 11/04/20 at 0500, Routine furosemide (LASIX) injection 40 mg Given 11/02/2020 5:18 AM SODA MAKER 40 mg 40 mg, Slow IV Push, ONCE, 1 dose, [place] 11/02/20 at 0615, Routine furosemide (LASIX) injection 40 mg Given 11/02/2020 9:11 PM SODA MAKER 40 mg 40 mg, Slow IV Push, ONCE, 1 dose, [place] 11/02/20 at 2015, Routine furosemide (LASIX) injection 40 mg Given 11/10/2020 8:33 AM SODA MAKER 40 mg 40 mg, Slow IV Push, ONCE, 1 dose, Tue11/10/20 at 0800, Routine gabapentin (NEURONTIN) capsule 300 mg Given 11/18/2020 10:07 AM SODA MAKER 300 mg 300 mg, Oral, TID, First dose on Tue11/12/20 at 1400, Until Discontinued, Routine Given 11/17/2020 10:13 PM SODA MAKER 300 mg Given 11/17/2020 2:40 PM SODA MAKER 300 mg ganciclovir (CYTOVENE) 225 mg in NaCl 0.9% Given 11/15/2020 8:01 PM SODA MAKER 225 mg (NS) 100 mL 225 mg, IV Piggyback, Administer over 30 Minutes, Q12H, First dose on Tue11/04/20 at 2000, Until Discontinued, ROBERTO, cleaning team member approving Restricted medication: MORENO NELSON JR Given 11/15/2020 9:54 AM SODA MAKER 225 mg Given 11/14/2020 9:03 PM SODA MAKER 225 mg HYDROcodone-acetaminophen (HYCET) 7.5-325 Given 10/28/2020 12:03 AM SODA MAKER 5 mg mg/15 mL solution 5 mg 5 mg, Oral, Q6HPRN, Starting Tue10/22/20 at 1001, Until Tue10/28/20 at 0629, Routine, Pain (scale 7-10) Given 10/27/2020 5:19 AM SODA MAKER 5 mg Given 10/26/2020 11:53 PM SODA MAKER 5 mg HYDROcodone-acetaminophen (HYCET) 7.5-325 Given 10/29/2020 5:59 AM SODA MAKER 5 mg mg/15 mL solution 5 mg 5 mg, Enteral, Q6HPRN, Starting Tue10/28/20 at 0628, Until Tue10/29/20 at 0821, Routine, Pain (scale 7-10) Given 10/28/2020 11:44 PM SODA MAKER 5 mg Given 10/28/2020 3:00 PM SODA MAKER 5 mg hydrOXYzine (ATARAX) 10 mg/5 mL solution 10 Given 11/09/2020 11:42 PM SODA MAKER 10 mg mg 10 mg, Oral, Q6HPRN, Starting Tue11/01/20 at 1300, Until Tue11/10/20 at 0754, Routine, Anxiety Given 11/09/2020 2:13 PM SODA MAKER 10 mg Given 11/09/2020 4:06 AM SODA MAKER 10 mg hydrOXYzine (ATARAX) 10 mg/5 mL solution 10 Given 11/22/2020 7:45 AM SODA MAKER 10 mg mg 10 mg, Enteral, Q6HPRN, Starting 11/10/20 at 0754, Until 11/22/20 at 0930, Routine, Anxiety Given 11/19/2020 10:26 AM SODA MAKER 10 mg Given 11/19/2020 1:52 AM SODA MAKER 10 mg iohexol (OMNIPAQUE 350 BULK-100 mL) Given 10/31/2020 10:04 PM CS T 100 mL injection 100 mL 100 mL, Intravenous, ONCE, 1 dose, 10/31/20 at 2215, Routine iohexol (OMNIPAQUE 350 BULK-100 mL) injection Given 9:40 PM SODA MAKER 90 mL 90 mL 90 mL, Intravenous, ONCE, 1 dose, 11/17/20 at 2145, Routine iohexol (OMNIPAQUE 350 BULK-75 mL) injection Given 08/2021 5:57 PM SODA MAKER 80 mL 80 mL 80 mL, Intravenous, ONCE, 1 dose, 11/03/20 at 1815, Routine ipratropium-albuteroL (DUONEB) 0.5 mg-3 mg(2.5 Given 0 11/02/2020 3:03 AM SODA MAKER 3 mL mg base)/3 mL nebulizer solution 3 mL 3 mL, Inhalation, ONCE, 1 dose, [place] 11/02/20 at 0300, Routine ipratropium-albuteroL (DUONEB) 0.5 mg-3 mg(2.5 Given 0 11/08/2020 8:51 PM SODA MAKER 3 mL mg base)/3 mL nebulizer solution 3 mL 3 mL, Inhalation, QID, First dose on 11/08/20 at 1330, Until Discontinued, Routine Given 11/08/2020 3:07 PM SODA MAKER 3 mL KCL (POTASSIUM CHLORIDE) 40 mEq in D5W 250 Given 10/23/2020 9:42 AM SODA MAKER 40 mEq mL piggyback 40 mEq, IV Piggyback, Q4H, 2 doses, First dose (after last modification) on [place] 10/23/20 at 0800, Last dose on Tue10/23/20 at 1200, 250 mL KCL (POTASSIUM CHLORIDE) 40 mEq in D5W 250 Given 10/23/2020 7:48 PM SODA MAKER 40 mEq mL piggyback 40 mEq, IV Piggyback, Q4H, 1 dose, First dose (after last reorder) on [place] 10/23/20 at 2000, 250 mL KCL (POTASSIUM CHLORIDE) 40 mEq in D5W Given 10/26/2020 12:19 PM SODA MAKER 40 mEq piggyback 40 mEq, IV Piggyback, Q4H, 1 dose, First dose (after last modification) on Tue10/26/20 at 1200, 250 mL KCL (POTASSIUM CHLORIDE) 40 mEq in D5W Given 10/27/2020 11:12 AM SODA MAKER 40 mEq piggyback 40 mEq, IV Piggyback, ONCE, 1 dose, Tue10/27/20 at 0730, 250 mL KCL (POTASSIUM CHLORIDE) 40 mEq in D5W Given 10/28/2020 7:41 AM SODA MAKER 40 mEq piggyback 40 mEq, IV Piggyback, ONCE, 1 dose, Tu10/28/20 at 0730, 250 mL KCL (POTASSIUM CHLORIDE) 40 mEq in D5W Given 10/29/2020 1:16 PM SODA MAKER 40 mEq piggyback 40 mEq, IV Piggyback, Q4H, 2 doses, First dose (after last reorder) on Tue10/29/20 at 0815, Last dose on Tue10/29/20 at 1200, 250 mL KCL (POTASSIUM CHLORIDE) 40 mEq in D5W Given 10/30/2020 3:08 AM SODA MAKER 40 mEq piggyback 40 mEq, IV Piggyback, Q4H, 2 doses, First dose (after last reorder) on Tue10/29/20 at 2015, Last dose on Tue10/30/20 at 0000, 250 mL Given 10/29/2020 10:11 PM SODA MAKER 40 mEq KCL (POTASSIUM CHLORIDE) 40 mEq in NaCl 0.9% Given 11:54 AM SODA MAKER 40 mEq (NS) 250 mL piggyback 40 mEq, IV Piggyback, Q6H ABX, 2 doses, First dose on Tue10/22/20 at 0430, Last dose on Tue10/22/20 at 1030, 250 mL Given 10/22/2020 5:18 AM SODA MAKER 40 mEq KCL (POTASSIUM CHLORIDE) 40 mEq in NaCl 0.9% Given 12/2020 8:29 AM SODA MAKER 40 mEq (NS) piggyback 40 mEq, IV Piggyback, Q4H, 2 doses, First dose on 10/26/20 at 0800, Last dose on 10/26/20 at 1200, 250 mL KCL (POTASSIUM CHLORIDE) 40 mEq in NaCl 0.9% Given 08/2021 4:20 AM SODA MAKER 40 mEq (NS) piggyback 40 mEq, IV Piggyback, ONCE, 1 dose, 11/03/20 at 0500, 250 mL KCL 20 mEq/15 mL solution 40 mEq Given 10/30/2020 2:01 AM SODA MAKER 40 mEq 40 mEq, Oral, Q4H, 2 doses, First dose on Tue10/29/20 at 2015, Last dose on [place] 10/30/20 at 0000, ROBERTO Given 10/29/2020 8:16 PM SODA MAKER 40 mEq lactated ringers IV infusion New Bag 10/31/2020 12:18 PM SODA MAKER 1,000 mL 999 mL/hr 1,000 mL at 999 mL/hr, 1,000 mL, IV Infusion, ONCE, 1 dose, 10/31/20 at 1315, Routine lactated ringers IV infusion New Bag 11/01/2020 10:43 AM SODA MAKER 1,000 mL 999 mL/hr 1,000 mL at 999 mL/hr, 1,000 mL, IV Infusion, ONCE, 1 dose, 11/01/20 at 1015, Routine lactated ringers IV infusion New Bag 11/16/2020 1:55 AM SODA MAKER 1,000 mL 200 mL/hr 1,000 mL at 200 mL/hr, 1,000 mL, IV Infusion, CONTINUOUS, Starting 11/15/20 at 1830, Until 11/16/20 at 0629, Routine New Bag 11/15/2020 8:01 PM SODA MAKER 1,000 mL 200 mL/hr lactated ringers IV infusion New Bag 11/16/2020 2:14 PM SODA MAKER 1,000 mL 200 mL/hr 1,000 mL at 200 mL/hr, 1,000 mL, IV Infusion, CONTINUOUS, Starting 11/16/20 at 0745, Until 11/16/20 at 1944, Routine New Bag 11/16/2020 7:30 AM SODA MAKER 1,000 mL 200 mL/hr lactated ringers IV infusion 500 New Bag 10/31/2020 9:[address] 500 mL 999 mL/hr mL at 999 mL/hr, 500 mL, IV Infusion, ONCE, 1 dose, Tue10/31/20 at 1030, STAT lactated ringers IV infusion 500 New Bag 10/31/2020 11:[address] 500 mL 999 mL/hr mL at 999 mL/hr, 500 mL, IV Infusion, ONCE, 1 dose, 10/31/20 at 1300, STAT lactated ringers IV infusion 500 New Bag 11/19/2020 7:[address] 500 mL 999 mL/hr mL at 999 mL/hr, 500 mL, Intravenous, ONCE, 1 dose, 11/19/20 at 2000, Routine lidocaine 1% (PF) (XYLOCAINE) injection Given 10/31/2020 5:20 P M SODA MAKER 5 mL Left Arm 5 mL 5 mL, Subcutaneous, ONCE, 1 dose, 10/31/20 at 1245, Routine LORazepam (ATIVAN) injection 0.5 mg Given 11/02/2020 5:26 AM SODA MAKER 0.5 mg 0.5 mg, Slow IV Push, ONCE, 1 dose, [place] 11/02/20 at 0530, Routine LORazepam (ATIVAN) injection 2 mg Given 11/20/2020 2:41 PM SODA MAKER 2 mg 2 mg, Slow IV Push, ONCE, 1 dose, [facility] 11/20/20 at 1445, Routine magnesium sulfate in water 2 gram/50 mL New Bag 10/23/20 8:40 AM SODA MAKER 2,000 mg (4 %) 2,000 mg piggyback 2,000 mg, IV Infusion, ONCE, 1 dose, [place] 10/23/20 at 0730 magnesium sulfate in water 2 gram/50 mL New Bag 10/28/19 9:15 AM SODA MAKER 2,000 mg (4 %) 2,000 mg piggyback 2,000 mg, IV Infusion, ONCE, 1 dose, 10/28/20 at 0730 magnesium sulfate in water 2 gram/50 mL New Bag 11/13/19 21 10:48 AM SODA MAKER 2,000 mg (4 %) 2,000 mg piggyback 2,000 mg, IV Infusion, ONCE, 1 dose, [place] 11/13/20 at 0830 magnesium sulfate in water 2 gram/50 mL (4 %) New Bag 10:20 AM SODA MAKER 2 g infusion 2 g 2 g, IV Piggyback, ONCE, 1 dose, [place] 11/06/20 at 0830, Routine magnesium sulfate in water 2 gram/50 mL (4 %) New Bag 11:27 AM SODA MAKER 2 g infusion 2 g 2 g, IV Piggyback, ONCE, 1 dose, 11/15/20 at 0800, Routine magnesium sulfate in water 2 gram/50 mL (4 %) New Bag 10:05 AM SODA MAKER 2 g infusion 2 g 2 g, IV Piggyback, ONCE, 1 dose, 11/18/20 at 0815, Routine magnesium sulfate in water 4 gram/50 mL New Bag 10/27/19 7:59 AM SODA MAKER 4,000 mg (8 %) 4,000 mg piggyback 4,000 mg, IV Infusion, ONCE, 1 dose, 10/27/20 at 0730 magnesium sulfate in water 4 gram/50 mL (8 %) New Bag 10:00 AM SODA MAKER 4 g IV Piggyback 4 g 4 g, IV Piggyback, Q6H ABX, 2 doses, First dose on Tue10/22/20 at 0430, Last dose on Tue10/22/20 at 1030, Routine magnesium sulfate in water 4 gram/50 mL (8 %) New Bag 10:49 AM SODA MAKER 4 g IV Piggyback 4 g 4 g, IV Piggyback, ONCE, 1 dose, 10/29/20 at 0830, Routine magnesium sulfate in water 4 gram/50 mL (8 %) New Bag 11:15 AM SODA MAKER 4 g IV Piggyback 4 g 4 g, IV Piggyback, ONCE, 1 dose, [place] 10/30/20 at 1030, Routine magnesium sulfate in water 4 gram/50 mL (8 %) New Bag 9:20 AM SODA MAKER 4 g IV Piggyback 4 g 4 g, IV Piggyback, ONCE, 1 dose, [place] 11/02/20 at 0900, Routine magnesium sulfate in water 4 gram/50 mL (8 %) New Bag 5:30 AM SODA MAKER 4 g IV Piggyback 4 g 4 g, IV Piggyback, ONCE, 1 dose, 11/03/20 at 0600, Routine magnesium sulfate in water 4 gram/50 mL (8 %) New Bag 8:38 AM SODA MAKER 4 g IV Piggyback 4 g 4 g, IV Piggyback, ONCE, 1 dose, 11/08/20 at 0645, Routine magnesium sulfate in water 4 gram/50 mL (8 %) New Bag 2:58 PM SODA MAKER 4 g IV Piggyback 4 g 4 g, IV Piggyback, ONCE, 1 dose, 11/09/20 at 1545, Routine magnesium sulfate in water 4 gram/50 mL (8 %) New Bag 2:44 AM SODA MAKER 4 g IV Piggyback 4 g 4 g, IV Piggyback, ONCE, 1 dose, 11/11/20 at 0330, Routine meropenem (MERREM) 1,000 mg in NaCl 0.9% Given 11/03/2020 3 :08 PM SODA MAKER 1,000 mg (NS) 100 mL IV piggyback 1,000 mg, IV Piggyback, Administer over 60 Minutes, Q8H ABX, First dose on Tue10/31/20 at 1515, Until Discontinued, ROBERTO, Restricted use approved by: [address], Reason for Anti-Infective: Empiric Therapy for Suspected Infection, Empiric Therapy Site: Blood, Duration of therapy: 72 hours Given 11/03/2020 8:00 AM SODA MAKER 1,000 mg Given 11/02/2020 10:17 PM SODA MAKER 1,000 mg methocarbamol (ROBAXIN) 50 mg/mL oral Given 11/17/2020 12:03 PM SODA MAKER 1,000 mg suspension 1,000 mg 1,000 mg, Enteral, TID, First dose (after last modification) on [place] 10/30/20 at 1400, Until Discontinued, Routine Given 11/16/2020 7:56 PM SODA MAKER 1,000 mg Given 11/16/2020 9:44 AM SODA MAKER 1,000 mg methocarbamoL (ROBAXIN) injection 1,000 mg Given 10/30/2020 4:37 AM SODA MAKER 1,000 mg 1,000 mg, Intravenous, Q8H, First dose on 10/19/20 at 1315, Until Discontinued, Routine Given 10/29/2020 9:04 PM SODA MAKER 1,000 mg Given 10/29/2020 1:16 PM SODA MAKER 1,000 mg metoprolol (LOPRESSOR) injection 10 mg Given 11/10/2020 9:44 AM SODA MAKER 10 mg 10 mg, Slow IV Push, ONCE, 1 dose, Tue11/10/20 at 0945, Routine micafungin (MYCAMINE) 100 mg in NaCl 0.9% Given 11/17/2020 2:33 PM SODA MAKER 100 mg (NS) 100 mL MINI-BAG 100 mg, IV Piggyback, Q24H ABX, First dose on Tue11/04/20 at 1100, Until Discontinued, 100 mL, Restricted use approved by: [address], Reason for Anti-Infective: Documented Infection, Documented Infection Site: Blood, Duration of Therapy: 7 days Given 11/16/2020 10:01 AM SODA MAKER 100 mg Given 11/15/2020 1:41 PM SODA MAKER 100 mg micafungin (MYCAMINE) 100 mg in NaCl 0.9% Given 11/18/2020 5:04 PM SODA MAKER 100 mg (NS) 100 mL MINI-BAG 100 mg, IV Piggyback, ONCE, 1 dose, Tue11/18/20 at 1100, 100 mL, Restricted use approved by: [address], Reason for Anti-Infective: Documented Infection, Documented Infection Site: Blood, Duration of Therapy: 7 days morpHINE injection 1 mg Given 10/31/2020 9:50 AM SODA MAKER 1 mg 1 mg, Slow IV Push, Q4HPRN, Starting Tue10/29/20 at 0820, Until Tue10/31/20 at 1810, Routine, Pain (scale 7-10) Given 10/31/2020 6:06 AM SODA MAKER 1 mg Given 10/31/2020 12:08 AM SODA MAKER 1 mg morpHINE injection 2 mg Given 10/22/2020 5:29 AM SODA MAKER 2 mg 2 mg, Slow IV Push, Q4HPRN, Starting Tue10/19/20 at 1312, Until Tue10/22/20 at 1002, Routine, Pain (scale 7-10) Given 10/21/2020 11:26 PM SODA MAKER 2 mg Given 10/21/2020 3:32 PM SODA MAKER 2 mg morpHINE injection 2 mg Given 10/28/2020 9:17 AM SODA MAKER 2 mg 2 mg, Slow IV Push, Q4HPRN, Starting Tue10/22/20 at 1002, Until Tue10/28/20 at 1544, Routine, Breakthrough after offering Hycet Given 10/28/2020 5:18 AM SODA MAKER 2 mg Given 10/28/2020 1:29 AM SODA MAKER 2 mg morpHINE injection 2 mg Given 10/31/2020 9:35 PM SODA MAKER 2 mg 2 mg, Slow IV Push, Q4HPRN, Starting Tue10/31/20 at 1809, Until Tue10/31/20 at 2302, Routine, Pain (scale 7-10) Given 10/31/2020 6:16 PM SODA MAKER 2 mg multivitamin (CENTRUM) solution 5 mL Given 10/29/2020 5:26 PM SODA MAKER 5 mL 5 mL, Enteral, DAILY, First dose on Tue10/29/20 at 1130, Until Discontinued, Routine NaCl 0.9% (NS) bolus infusion New Bag 11/21/2020 9:44 AM SODA MAKER 1,000 mL 999 mL/hr 1,000 mL at 999 mL/hr, 1,000 mL, IV Piggyback, ONCE, 1 dose, Tue11/21/20 at 0915, STAT NaCl 0.9% (NS) bolus infusion 500 New Bag 10/27/2020 11:54 PM SODA MAKER 500 mL 500 mL/hr mL at 500 mL/hr, 500 mL, IV Piggyback, ONCE, 1 dose, Tue10/27/20 at 2345, ROBERTO NaCl 0.9% (NS) bolus infusion 500 New Bag 10/29/2020 12:49 AM SODA MAKER 500 mL 500 mL/hr mL at 500 mL/hr, 500 mL, IV Piggyback, ONCE, 1 dose, Tue10/29/20 at 0145, Routine NaCl 0.9% (NS) bolus infusion 500 New Bag 10/29/2020 6:00 AM SODA MAKER 500 mL 500 mL/hr mL at 500 mL/hr, 500 mL, IV Piggyback, ONCE, 1 dose, Tue10/29/20 at 0600, Routine NaCl 0.9% (NS) bolus infusion 500 New Bag 10/31/2020 8:21 AM SODA MAKER 500 mL 999 mL/hr mL at 999 mL/hr, 500 mL, IV Piggyback, ONCE, 1 dose, Tue10/31/20 at 0730, STAT nicotine (NICODERM) 7 mg/24 hr patch 1 Given 11/03/2020 8:01 AM SODA MAKER 1 Patch Patch 1 Patch, Topical, Administer over 24 Hours, DAILY, First dose on 10/19/20 at 0900, Until Discontinued, Routine Given 10/30/2020 10:22 AM SODA MAKER 1 Patch Given 10/29/2020 9:19 AM SODA MAKER 1 Patch NORepinephrine (LEVOPHED) Rate Change 11/07/2020 7:02 0.07 mcg/kg /min 1.47 mL/hr 32 mg in NaCl 0.9% (NS) PM SODA MAKER 250 mL infusion 0.05-1.5 mcg/kg/min 44.8 kg (1.05-31.5 mL/hr), IV Infusion, TITRATE, MAP Goal > or = 65 mmHg, Starting [place] 11/02/20 at 1203, Initiate titration at 0.05 mcg/kg/min. Increase by 0.01 mcg/kg/min every 30 seconds to 5 minutes as needed to reach and maintain goal blood pressure. Maximum dose = 1.5 mcg/kg/min. If goal not maintained at maximum allowed dose, contact prescriber., Restarted 11/07/2020 6:44 PM SODA MAKER 0.05 mcg/kg/min 1.05 mL/hr Rate Change 11/07/2020 6:37 AM SODA MAKER 0.03 mcg/kg/min 0.63 mL/hr pantoprazole (PROTONIX) 2 mg/mL oral Given 11/10/2020 7:[address] 40 mg suspension 40 mg 40 mg, Enteral, BID, First dose (after last modification) on [place] 10/30/20 at 2000, Until Discontinued, Routine Given 11/10/2020 8:22 AM SODA MAKER 40 mg Given 11/09/2020 7:42 PM SODA MAKER 40 mg pantoprazole (PROTONIX) 40 mg in NaCl 0.9% Given 10/30/2020 10:2 2 AM SODA MAKER 40 mg (NS) 100 mL MINI-BAG 40 mg, IV Piggyback, Q12H, First dose on 10/19/20 at 0800, Until Discontinued, 100 mL Given 10/29/2020 9:12 PM SODA MAKER 40 mg Given 10/29/2020 9:19 AM SODA MAKER 40 mg penicillin g benzathine Given 10/25/2020 2:02 PM 2.4 Million Right Deltoid-IM (BICILLIN L-A) injection SODA MAKER Units 2.4 Million Units 2.4 Million Units, Intramuscular, QWEEKLY, 1 dose, First dose (after last modification) on 10/25/20 at 1200, ROBERTO, Reason for Anti-Infective: Documented Infection, Documented Infection Site: Blood, Duration of Therapy: 7 days penicillin g benzathine Given 11/01/2020 11:16 PM 2.4 Million Un its Abdomen-SC (BICILLIN L-A) injection SODA MAKER 2.4 Million Units 2.4 Million Units, Intramuscular, ONCE, 1 dose, 11/01/20 at 1945, ROBERTO, Reason for Anti-Infective: Empiric Therapy for Suspected Infection, Empiric Therapy Site: Bone, Duration of therapy: 72 hours phenylephrine (VARUN-SYNEPHRINE Given by Provider 11/04/2020 12:[address] 1 Drop VISCOUS) 10 % ophthalmic drops 1 Drop 1 Drop, Both Eyes, ONCE, 1 dose, 11/04/20 at 1230, Routine phenylephrine 10 mg in Rate Change 11/01/2020 12:00 PM 0.4 mcg/kg/ min 23.94 mL/hr NaCl 0.9% (NS) 250 mL SODA MAKER infusion RTU 0.5-6 mcg/kg/min 39.9 kg (29.925-359.1 mL/hr, rounded to 29.93-359.1 mL/hr), IV Infusion, TITRATE, MAP Goal > or = 65 mmHg, Starting Tue10/31/20 at 1344, Initiate infusion at 0.5 mcg/kg/min. Increase by 0.1 mcg/kg/min every 30 seconds to 5 minutes as needed to reach and maintain goal blood pressure. Maximum dose = 6 mcg/kg/min. If goal not maintained at maximum allowed dose, contact prescriber., Rate Change 11/01/2020 11:21 AM SODA MAKER 0.6 mcg/kg/min 35.91 mL/hr Rate Change 11/01/2020 10:00 AM SODA MAKER 0.8 mcg/kg/min 47.88 mL/hr phosphorus (K PHOS NEUTRAL) tablet 2 Given 10/22/2020 8:[address] 2 tablets tablet 2 tablet (500 mg), Enteral, QID, First dose on 10/19/20 at 0800, Until Discontinued, Routine Given 10/22/2020 4:41 PM SODA MAKER 2 tablets Given 10/22/2020 11:54 AM SODA MAKER 2 tablets piperacillin-tazobactam (ZOSYN) 3.375 g in Given 10/31 8:46 AM SODA MAKER 3.375 g NaCl 0.9% (NS) 100 mL MINI-BAG 3.375 g, IV Piggyback, Q6H ABX, First dose on Tue10/31/20 at 0830, Until Discontinued, 100 mL, Reason for Anti-Infective: Documented Infection, Documented Infection Site: Urine, Duration of Therapy: 10 days potassium chloride 20 mEq/100 mL Given 10/26/2020 9:51 PM SODA MAKER 2 0 mEq 50 mL/hr (KCL) 20 mEq/100 mL RTU IVPB 20 mEq 20 mEq, IV Piggyback, ONCE, 1 dose, [place] 10/26/20 at 2000, 100 mL potassium chloride in water (KCL) 40 mEq/100 Given 10:49 AM SODA MAKER 40 mEq mL 40 mEq piggyback 40 mEq, IV Piggyback, ONCE, 1 dose, [facility] 11/05/20 at 0915 potassium chloride in water (KCL) 40 mEq/100 Given 4:48 PM SODA MAKER 40 mEq mL 40 mEq piggyback 40 mEq, IV Piggyback, ONCE, 1 dose, [facility] 11/05/20 at 1615 potassium, sodium phosphates (PHOS-NAK) Given 10/26/2020 3:08 P M SODA MAKER 1 Packet 280-160-250 mg packet 1 Packet 1 Packet, Oral, QID, First dose on [place] 10/23/20 at 0800, Until Discontinued, Routine Given 10/26/2020 12:19 PM SODA MAKER 1 Packet Given 10/26/2020 8:28 AM SODA MAKER 1 Packet potassium, sodium phosphates (PHOS-NAK) Given 10/28/2020 7:40 A M SODA MAKER 1 Packet 280-160-250 mg packet 1 Packet 1 Packet, Enteral, Q4H, 4 doses, First dose (after last modification) on 10/27/20 at 2000, Last dose on Tue10/28/20 at 0800, Routine Given 10/28/2020 5:18 AM SODA MAKER 1 Packet Given 10/28/2020 12:03 AM SODA MAKER 1 Packet potassium, sodium phosphates (PHOS-NAK) Given 10/30/2020 7:51 A M SODA MAKER 1 Packet 280-160-250 mg packet 1 Packet 1 Packet, Enteral, QID, First dose on Tue10/28/20 at 1200, Until Discontinued, Routine Given 10/29/2020 10:01 PM SODA MAKER 1 Packet Given 10/29/2020 5:26 PM SODA MAKER 1 Packet potassium, sodium phosphates (PHOS-NAK) Given 10/31/2020 11:47 P M SODA MAKER 1 Packet 280-160-250 mg packet 1 Packet 1 Packet, Enteral, Q4H, 10 doses, First dose (after last modification) on Tue10/30/20 at 1200, Last dose on Tue11/01/20 at 0000, Routine Given 10/31/2020 8:41 PM SODA MAKER 1 Packet Given 10/31/2020 2:42 PM SODA MAKER 1 Packet potassium, sodium phosphates (PHOS-NAK) Given 11/06/2020 10:08 P M SODA MAKER 1 Packet 280-160-250 mg packet 1 Packet 1 Packet, Enteral, QID, First dose (after last modification) on Tue11/06/20 at 1600, Until Discontinued, Routine Given 11/06/2020 6:23 PM SODA MAKER 1 Packet potassium, sodium phosphates (PHOS-NAK) Given 11/15/2020 9: 55 AM SODA MAKER 2 Packets 280-160-250 mg packet 2 Packet 2 Packet, Enteral, TID, First dose (after last modification) on Tue11/07/20 at 0800, Until Discontinued, Routine Given 11/14/2020 9:03 PM SODA MAKER 2 Packets Given 11/14/2020 3:55 PM SODA MAKER 2 Packets proparacaine (ALCAINE) 0.5 % Given by Provider 11/04/2020 12:30 PM CS T 1 Drop ophthalmic solution 1 Drop 1 Drop, Both Eyes, ONCE, 1 dose, Tue11/04/20 at 1230, Routine propofoL IV infusion New Bag 11/07/2020 5:35 PM 40 mcg/kg/min 10.75 mL/hr 5-50 mcg/kg/min SODA MAKER 44.8 kg (1.344-13.44 mL/hr, rounded to 1.34-13.44 mL/hr), IV Infusion, TITRATE, Sedation-RASS score (0 to -1), Starting 11/02/20 at 1203, Initiate infusion at 5 mcg/kg/min and titrate by 5 mcg/kg/min every 30 seconds to 10 minutes to goal sedation score. Maximum dose = 50 mcg/kg/min. If goal not maintained at maximum allowed dose, contact prescriber. Tubing and unused portions of vials should be discarded after 12 hours., Restarted 11/07/2020 2:45 PM SODA MAKER 40 mcg/kg/min 10.75 mL/hr New Bag 11/06/2020 12:01 PM SODA MAKER 25 mcg/kg/min 6.72 mL/hr risperiDONE (RisperDAL M-TAB) disintegrating Given 0 7:38 PM SODA MAKER 1 mg tablet 1 mg 1 mg, Enteral, QHS, First dose on 10/19/20 at 2100, Until Discontinued, Routine Given 10/22/2020 8:50 PM SODA MAKER 1 mg Given 10/21/2020 11:26 PM SODA MAKER 1 mg risperiDONE (RisperDAL M-TAB) disintegrating Given 1 11:25 AM SODA MAKER 1 mg tablet 1 mg 1 mg, Oral, PRN, 1 dose, Starting Tue10/26/20 at 0829, Until Tue10/28/20 at 1125, Routine, agitation/psychosis/aggression risperiDONE (RISPERDAL M-TAB) disintegrating Given 1 8:50 PM SODA MAKER 2 mg tablet 2 mg 2 mg, Enteral, QHS, First dose (after last modification) on Tue10/24/20 at 2100, Until Discontinued, Routine Given 10/24/2020 8:14 PM SODA MAKER 2 mg risperiDONE (RISPERDAL M-TAB) disintegrating Given 1 10:07 AM SODA MAKER 2 mg tablet 2 mg 2 mg, Enteral, BID, First dose (after last modification) on Tue10/29/20 at 2000, Until Discontinued, Routine Given 11/17/2020 8:54 PM SODA MAKER 2 mg Given 11/17/2020 9:39 AM SODA MAKER 2 mg risperiDONE (RISPERDAL M-TAB) disintegrating Given 1 10:57 PM SODA MAKER 3 mg tablet 3 mg 3 mg, Oral, QHS, First dose (after last modification) on Tue10/26/20 at 2145, Until Discontinued, Routine risperiDONE (RISPERDAL M-TAB) disintegrating Given 10:43 PM SODA MAKER 3 mg tablet 3 mg 3 mg, Enteral, QHS, First dose (after last modification) on Tue10/27/20 at 2100, Until Discontinued, Routine Given 10/27/2020 9:00 PM SODA MAKER 3 mg risperiDONE (RISPERDAL) tablet 0.5 mg Given 11/20/2020 8:01 AM SODA MAKER 0.5 mg 0.5 mg, Oral, BID, First dose on Tue11/20/20 at 0800, Until Discontinued, Routine risperiDONE (RISPERDAL) tablet 1 mg Given 10/24/2020 2:16 PM SODA MAKER 1 mg 1 mg, Oral, PRN, 1 dose, Starting Tue10/24/20 at 0609, Until Tue10/24/20 at 1416, Routine, agitation/psychosis/aggression risperiDONE (RISPERDAL) tablet 1 mg Given 11/19/2020 7:42 AM SODA MAKER 1 mg 1 mg, Oral, BID, First dose on Tue11/19/20 at 0800, Until Discontinued, Routine sodium chloride 7% (HYPER-MARKO) nebulizer Given 11/15/2020 7:03 AM SODA MAKER 4 mL solution 4 mL 4 mL, Inhalation, BID, First dose on 11/08/20 at 2000, Until Discontinued, Routine Given 11/14/2020 8:18 PM SODA MAKER 4 mL Given 11/14/2020 6:47 AM SODA MAKER 4 mL sodium phosphate 12.8 mmol in D5W 250 mL Given 020 1:57 PM SODA MAKER 12.8 mmol piggyback 12.8 mmol, IV Piggyback, ONCE, 1 dose, [place] 10/23/20 at 0730, 250 mL sodium phosphate 15 mmol in D5W 250 mL Given 10/28/2020 9:32 AM SODA MAKER 15 mmol piggyback 15 mmol, IV Piggyback, ONCE, 1 dose, Tue10/28/20 at 0730, 250 mL sodium phosphate 15 mmol in D5W 250 mL Given 10/29/2020 9:56 AM SODA MAKER 15 mmol piggyback 15 mmol, IV Piggyback, ONCE, 1 dose, Tue10/29/20 at 0800, 250 mL sodium phosphate 15 mmol in D5W 250 mL Given 10/29/2020 6:35 PM SODA MAKER 15 mmol piggyback 15 mmol, IV Piggyback, ONCE, 1 dose, 10/29/20 at 1845, 250 mL sodium phosphate 15 mmol in D5W 250 mL Given 10/30/2020 10:22 AM SODA MAKER 15 mmol piggyback 15 mmol, IV Piggyback, ONCE, 1 dose, [place] 10/30/20 at 0930, 250 mL sodium phosphate 15 mmol in NaCl 0.9% (NS) Given 11/08 8:39 AM SODA MAKER 15 mmol 250 mL piggyback 15 mmol, IV Piggyback, ONCE, 1 dose, 11/08/20 at 0800, 250 mL sodium phosphate 15 mmol in NaCl 0.9% (NS) Given 11/09 3:09 PM SODA MAKER 15 mmol 250 mL piggyback 15 mmol, IV Piggyback, ONCE, 1 dose, 11/09/20 at 1545, 250 mL thiamine (VITAMIN B1) 100 mg in D5W Given 10/28/2020 8:39 PM CS T 100 mg piggyback IV Piggyback, ONCE, 1 dose, 10/28/20 at 2000, 50 mL thiamine (VITAMIN B1) 100 mg in D5W Given 10/29/2020 9:15 PM CS T 100 mg piggyback IV Piggyback, ONCE, 1 dose, 10/29/20 at 1845, 50 mL valGANciclovir (VALCYTE) 50 mg/mL suspension Given 8:54 PM SODA MAKER 900 mg 900 mg 900 mg, Oral, BID, First dose on 11/16/20 at 0800, Until Discontinued, Routine, cleaning team member approving Restricted medication: MARYAMK[place]ON GRANADOS Given 11/17/2020 10:28 AM SODA MAKER 900 mg Given 11/16/2020 7:56 PM SODA MAKER 900 mg Vancomycin 750 mg in NaCl 0.9% (NS) 250 mL Given 11/01/2020 5:00 AM SODA MAKER 750 mg VIAL-MATE 750 mg (rounded from 798 mg = 20 mg/kg 39.9 kg), IV Piggyback, Q8H ABX, First dose on Tue10/31/20 at 1300, Until Discontinued, 250 mL, Reason for Anti-Infective: Empiric Therapy for Suspected Infection, Empiric Therapy Site: Blood, Duration of therapy: 7 days Given 10/31/2020 8:42 PM SODA MAKER 750 mg Given 10/31/2020 1:44 PM SODA MAKER 750 mg documented in this encounter Additional Health Concerns Infection Onset Date Last Indicated Resolved Time COVID-19 Rule Out 10/19/2020 10/20/2020 10/20/2020 5: 41 PM SODA MAKER COVID-19 Rule Out 10/26/2020 10/26/2020 10/26/2020 9: 10 AM SODA MAKER COVID-19 Rule Out 11/02/2020 11/02/2020 11/02/2020 5: 57 AM SODA MAKER documented as of this encounter Insurance Payer Benefit Plan / Subscriber ID Effective Phone Address T ype Group Dates MEDICAID MEDICAID PENDING 2020-Pre [address] [place] [address] Pending [place] [address] documented as of this encounter Advance Directives Name Relationship Healthcare Agent Relationship Co mmunication Shantel Sanches Mother [facility] Gay Sanches Sibling First [facility] t
--- OUTSIDE RECORDS SUMMARY | 2020-11-27 20:03 | XMS REPORT | Summary of Care ---
:1985 Author Organization [facility] - [facility] Address [address] [place] [address] Care Team Providers Name Role Phone Pcp, Does Not Have A Primary Care Provider Reason for Visit Reason Comments Transition Of Care Encounter Details Date Type Department Care Team Description 11/25/2020 Transition of Care [facility] Conor Araujo Transition Of Care [facility]- [address] [place] [address] Allergies No Known Allergiesdocumented as of this encounter (statuses as of 11/25/2020) Medications Medication Sig Dispensed Refills Start Date End Date Status calcium carbonate 500 Take 5 mL 300 mL 0 11/23/2020 021 Active mg [place] CA/5 mL 500 through enteral mg/5 mL [...] as of this encounter (statuses as of 11/25/2020) Active Problems Problem Noted Date Unstageable pressure [...] Added automatically from request for gin gemini [id number] Bipolar 1 disorder GERD (gastroesophageal reflux disease) Schizophrenia documented as of this encounter (statuses as of 11/25/2020) Immunizations Name Administration Dates Next Due Influenza [...] Notes Telephone Encounter - Henrietta Araujo - 11/25/2020 12:32 PM CST TRANSITIONAL CARE MANAGEMENT ASSESSMENT 11/25/2020 Tahir Ag Jr. [id number] Tahir Ag Jr. is a 35 year old Black or male was admitted on 10/19/[address] He was discharged on 11/23/20 with discharge disposition of HR- Routine Discharge. Admitting Physician: Faisal Norwood Discharge Diagnosis: Achalasia I called and the mother Shantel states that she needs assistance with his medications she stated she isupset because he did not get any of his PSYCHIATRY medications for his Bipolar disorder Schizophrenia . She did say she obtained the hospital bed, and 6 cartons of the feedings. She saidshe getting the wound care supplies. Pt. is bed bound. She voiced patient.can not speak, His sacral wound is very bad she states. Instructed Shantel that I will discuss the needs for medications and resources for other supplies. Planis to call her back. Linked Episodes Type: Episode: Status: Noted: Resolved: Last update: Updated by: TRANSITION OF CARE tcm Active 11/23/2020 11/25/2020 12:29 PM Henrietta Araujo Comments: TCM Kmq-kzqd-cf-face outreach documentation: Discharge Assessment Chart Assessed: 11/25/20 TCM Outreach Completed: 11/25/20 Do you have a few minutes to speak with me about how you are doing at home?: Yes(spoke with debubblizer mother Shantel) Discharge Instructions Do you understand your at-home instructions?: Yes Medications Have you filled your prescriptions and do you have them in your home? : No Medication Interventions?: Care coordination Can you provide me with the names or descriptions of any kjzf-xzp-ilknbfy or supplements you are currently taking?: Patient declined Supplies Did you receive applicable home medical supplies/equipment?: No Supplies intervention?: Care coordination(contacted leadership to discuss plan for pt.regarding medications and other supplies.) Follow Up Appointment Has a follow up appointment been scheduled?: No May I assist with scheduling this appointment?: Unable to schedule-referred to [facility]U Team(did not discuss due to other concerns.) Future Appointments: pending. Pt. Is bed bound. documented in this encounter Plan of Treatment [...] ype Group Dates MEDICAID MEDICAID PENDING 2020-Pre [address] [place] [address] [place] [address] documented as of this encounter Advance Directives Name Relationship Healthcare Agent Relationship Co mmunication Shantel Ag Mother [facility] t Gay Ag Sibling [facility] t
--- OUTSIDE RECORDS SUMMARY | 2020-11-27 20:04 | XMS REPORT | Summary of Care ---
:1985 Author Organization [facility] - [facility] Address [address] [place] [address] Care Team Providers Name Role Phone Pcp, Does Not Have A Primary Care Provider Reason for Visit Reason Comments Transition Of Care Encounter Details Date Type Department Care Team Description 11/25/2020 Transition of Care [facility] Conor Araujo Transition Of Care [facility]- [address] [place] [address] Allergies No Known Allergiesdocumented as of this encounter (statuses as of 11/25/2020) Medications Medication Sig Dispensed Refills Start Date End Date Status calcium carbonate 500 Take 5 mL 300 mL 0 11/23/2020 021 Active mg [place] CA/5 mL 500 through enteral mg/5 mL [...] Added automatically from request for gin gemini [id number] Bipolar 1 disorder GERD (gastroesophageal reflux disease) [...] Telephone Encounter - Henrietta Araujo - 11/25/2020 1:06 PM CSTCHP referral submitted to Anna Trevino CM and Brian DEE. documented in this encounter Plan of Treatment [...] T ype Group Dates MEDICAID MEDICAID PENDING 2020-[address] [place] [address] documented as of this encounter Advance Directives Name Relationship Healthcare Agent Relationship Co mmunication Shantel Ag Mother [facility] Gay Ag Sibling [facility]
--- OUTSIDE RECORDS SUMMARY | 2020-11-27 20:04 | XMS REPORT | Summary of Care ---
:1985 Author Organization [facility] - [facility] Address [address] [place] [address] Care Team Providers Name Role Phone Pcp, Does Not Have A Primary Care Provider Reason for Visit Reason Comments Assessment Call from another provider w ith concerns about medical status. Encounter Details Date Type Department Care Team Description 11/27/2020 Telephone Medicine (JADE 10A) Gianni Aguilar MD Assessment (Call from [address] another provider with [place], [place] [id number] [place] [address] concerns about medical [phone] status. ) [phone] Allergies No Known Allergiesdocumented as of this encounter (statuses as of 11/27/2020) Medications Medication Sig Dispensed Refills Start Date End Date Status calcium carbonate 500 Take 5 mL 300 mL 0 11/23/2020 021 Active mg [place] CA/5 mL 500 through enteral mg/5 mL [...] as of this encounter (statuses as of 11/27/2020) Active Problems Problem Noted Date Unstageable pressure [...] Added automatically from request for gin gemini [id number] Bipolar 1 disorder GERD (gastroesophageal reflux disease) Schizophrenia documented as of this encounter (statuses as of 11/27/2020) Immunizations Name Administration Dates Next Due Influenza [...] this encounter Miscellaneous Notes Telephone Encounter - Gianni Aguilar MD - 11/27/2020 3:02 PM CSTI received a call from the Psychiatrist from [facility] that had a tele-health visit with and his parents who are currently taking care of him. I took care of From 08/23/2020 to 08/30/2020 when he initially presented for severe N/V suspected secondary to Achalasia. Since then he has been hospitalized multiple times for similar issues including most recently where he was admitted to the ICU where he was seen by different providers. His course appears to have been complicated by multiple infections, ARDS, malnourishment, and sacral ulcer. I was called by the provider at [facility] as she was concerned about medical condition. She conducted a tele-health visit with him and his family wherein the family noted serious concerns about the status of his nutrition as well as sacral ulcer. The provider notes that per patient's father he can "see the bone" through the sacral ulcer. She also reports family has no understanding on howto perform wound care and that they do not have any f/u scheduled with any other physicians or woundcare centers. They are also unable to take patient to be seen at any clinic as he is bed ridden and cannot ambulate. Family concerned about continued poor nutrition, ulcer that is poorly managed and appears to worsening, as well active psychosis. Per psychiatrist he is talking to himself and banging the sides of the bed. Family does not appear to be able to take care of patient, and psychiatrist unable to titrate medications given unknown ability to give meds through his PEG tube. She reported concern for his medical as well as mental health and notes she did not know who else to contact about thisissue. He does not appear to have any F/u scheduled. I have not seen the patient since his discharge on 08/30/2020 since which he has had multiple hospitalizations. I also am not personally aware of his course in the ICU and his discharge condition or what follow up he was meant to have. However given increasing concerns from the family as well as the psychiatrist, as well as concerning issues such as worsening sacral ulcer, malnutrition, and now possible active psychosis with possible self harm I notified the [facility] provider that he would likely have to be evaluated. I informed her that if he cannot see a clinic provider due to inability of family to transport him as well as acute concerns family is currently having, then he would have to be brought to the ED where he can be evaluated. I informed her that they can call for an ambulance service since they are unable to transport him. Since I had not personally examined the patient and do not know his discharge condition I am not able to provide any medical advice and notified provider that it would be at the discretion of the family and the provider at [facility] to send him to the ER given their concerns about his medical and psychiatric status. I discussed the case with Radha the social work instructor at the [facility] clinic. We discussed his case andumeshe notified me that she would follow up on his case with other providers who are more involved withhis case. She later notified me that they would attempt to get him placement at a Residential Facility despite not being funded. Gianni Aguilar MD Internal Medicine PGY-1 LIGHT MECHANIC documented in this encounter Plan of Treatment [...] ype Group Dates MEDICAID MEDICAID PENDING 2020-Pre [address] [place] [address] Pending PENDING PENDING sent [facility] [place] [address] documented as of this encounter Advance Directives Name Relationship Healthcare Agent Relationship Co mmunication Gay Ag Sibling [facility] t
--- OUTSIDE RECORDS SUMMARY | 2020-11-27 20:04 | XMS REPORT | Summary of Care ---
:1985 Author Organization [facility] Address [address] [place] [address] Care Team Providers Name Role Phone Pcp, Does Not Have A Primary Care Provider Reason for Visit Reason Comments Assessment Talk To Provider Aj Hopper Encounter Details Date Type Department Care Team Description 11/26/2020 Telephone [facility] Aj Hopper, Assessme nt; [facility] [address] ) [address] [place] [address] Drive, 6th Floor [address] [place], [place] [phone] [address] [phone] Allergies No Known Allergiesdocumented as of this encounter (statuses as of 11/26/2020) Medications Medication Sig Dispensed Refills Start Date End Date Status calcium carbonate 500 Take 5 mL 300 mL 0 11/23/2020 021 Active mg [place] CA/5 mL 500 through enteral mg/5 mL (1,250 mg/5 tube 2 (two) mL) times daily suspensionIndications: with meals for Severe protein-calorie 30 days. malnutrition foLIC acid 1 mg Take 1 tablet 30 tablet 0 11/24/2020 Active tabletIndications: through enteral Severe protein-calorie tube daily for malnutrition 30 days. ergocalciferol, Take 0.3 mL by 9 mL 0 11/24/2020 12/25/19 Active vitamin D2, 200 mcg/mL mouth daily [...] (700 Apply 1 Patch 30 Patch 0 11/24/2020 03/03/ 2021 Active mg/patch) to area(s) patchIndications: Pain daily [...] as of this encounter (statuses as of 11/26/2020) Active Problems Problem Noted Date Unstageable pressure [...] Added automatically from request for gin gemini [id number] Bipolar 1 disorder GERD (gastroesophageal reflux disease) Schizophrenia documented as of this encounter (statuses as of 11/26/2020) Immunizations Name Administration Dates Next Due Influenza [...] this encounter Miscellaneous Notes Telephone Encounter - Shanique oMoney - 11/26/2020 4:50 PM CSTQuintin Eric Ag Jr. is a 35 year old male Patient's sister Gay calling to speak with Eben paul inter Aj Sherman . Pt was connected with Dr. Hopper. Closing encounter documented in this encounter Plan of Treatment [...] / Subscriber ID Effective Phone Address T e Group Dates MEDICAID MEDICAID PENDING 2020-Pre [address] Pending [place] [address] documented as of this encounter Advance Directives Name Relationship Healthcare Agent Relationship Co mmunication Gay Ag Sibling First [facility]gen t
--- OUTSIDE RECORDS SUMMARY | 2020-11-27 20:04 | XMS REPORT | Summary of Care ---
:1985 Author Organization [facility] - [facility] Address [address] [place] [address] Care Team Providers Name Role Phone Pcp, Does Not Have A Primary Care Provider Reason for Visit Reason Comments Social Work Encounter Details Date Type Department Care Team Description 11/25/2020 Patient Outreach [facility] Lisa Bunn LCSW Social Work Network[address] [address] Allergies No Known Allergiesdocumented as of this encounter (statuses as of 11/27/2020) Medications Medication Sig Dispensed Refills Start Date End Date Status calcium carbonate 500 Take 5 mL 300 mL 0 11/23/2020 021 Active mg [place] CA/5 mL 500 through enteral mg/5 mL [...] Added automatically from request for gin gemini [id number] Bipolar 1 disorder GERD (gastroesophageal reflux disease) [...] encounter Progress Notes Micki Bunn LCSW - 11/25/2020 10:42 AM CSTSocial Work Note LEILA received a return call from patient's cousin, Ani Hall ([phone]) and sister, Gay Ag ([phone]), who report continued concern for patient's safety at home. Concerns include lack of cleanliness in the home, mother's and patient's mental health struggles, and the size of patient's sacral wound. LEILA offered services for wound care; this offer is under consideration. LEILA followed up with [facility] rep, Antoinejared Edwards, who reported that none of the 14 facilities with which NAZ works currently have an available Medicaid pending bed. Mr. Edwards confirmed he will contact when a bed is available. Ms. Hall reports she spoke with [employer] who confirmed patient was approved for financialassistance, but the feeds will not arrive for 2-3 weeks; she is concerned patient may not have adequate feeds until then. Family reports they are concerned about previous discharge plan; LEILA provided active listening and will follow-up regarding their concerns. LEILA will continue to follow prn. Micki Bunn LCSW, [facility]- Processor Helper, Social Work Office Dutch proficient Micki Armenta LCSW - 11/25/2020 10:42 AM CSTSocial Work Note LEILA called patient's cousin, Ani Hall ([phone]) to follow up on status of Rx and feed needs. Ms. Hall reports: She is awaiting a current medication list (LEILA emailed it to [email or web address]) Pt is pending an appointment with [facility] in December for mental health care She spoke with [facility], which reports they do not accept Medicaid Pending Spoke with [facility] which does accept Medicaid Pending (LEILA eFaxed clinicals) SW inquired about an application for Jevity assistance through [employer] and learned that IP CM submitted the application during patient's IP stay; informed Ms. Hall of above, provided contact info for[facility], and encouraged her to contact them regarding the status of application. Confirmed Ms. Hall has SW contact info for follow-up prn. ALYSHA Khan LCSW-LEILA Processor Helper, Social Work Office Dutch proficient Micki Armenta LCSW - 11/25/2020 10:42 AM CSTSocial Work Note SW received a call from pt's cousin, Ani Hall ([phone]), who reported that patient's mother is currently experiencing her own health issues and is unable to provide patient with appropriatecare at this time. Ms. Hall asked SW to update patient's contact information to reflect sister and cousin's contacts; completed. After a discussion regarding needs, Ms. Hall spoke with patient's parents and sister, who decidedhe would benefit from termite exterminator care while awaiting a determination on Medicaid. LEILA sent clinicals to [facility], and [facility], per family's choice. Pending response. DC Khan LCSW, MIGSIF Work Office Dutch proficient Micki Armenta LCSW - 11/25/2020 10:42 AM CSTSocial Work Note LEILA consulted by financial counselor per: mom called Shantel Ag she is needing someone to help in getting some meds or get some sort of direction on who will give him the meds and a few other thing he needs help with, can you have someone call her @ [phone] No answer; left message requesting return call. DC Khan LCSW Processor Helper, MIGSIF Work Office Dutch proficient TRUCTION CHECKER documented in this encounter Plan of Treatment [...] ype Group Dates MEDICAID MEDICAID PENDING 2020-Pre [address] [place] [address] P[place] [address] documented as of this encounter Advance Directives Name Relationship Healthcare Agent Relationship Co mmunication Gay Ag Sibling First [facility] Health Care Agen t
--- OUTSIDE RECORDS SUMMARY | 2020-11-27 20:04 | XMS REPORT | Summary of Care ---
:1985 Author Organization [facility] - [facility] Address [address] [place] [address] Care Team Providers Name Role Phone Pcp, Does Not Have A Primary Care Provider Reason for Visit Reason Comments Assessment Call from another provider w ith concerns about medical status. Encounter Details Date Type Department Care Team Description 11/27/2020 Telephone Medicine (JADE 10A) Gianni Aguilar MD Assessment (Call from [address] another provider with [place], [place] [address] [place] [address] concerns about medical [phone] status. ) [phone] Allergies No Known Allergiesdocumented as of this encounter (statuses as of 11/27/2020) Medications Medication Sig Dispensed Refills Start Date End Date Status calcium carbonate 500 Take 5 mL 300 mL 0 11/23/2020 021 Active mg [place] CA/5 mL 500 through enteral mg/5 mL [...] Added automatically from request for gin gemini [id number] Bipolar 1 disorder GERD (gastroesophageal reflux disease) [...] received a call from the Psychiatrist from [facility] that had a tele-health visit with and [...] I was called by the provider at [facility] as she was concerned about medical condition. [...] with possible self harm I notified the [facility] provider that he would likely have to [...] of the family and the provider at [facility] to send him to the ER given their concerns about his medical and psychiatric status. I discussed the case with Maggy the high school social science teacher at the [facility] clinic. We discussed his case andumeshe notified me that she would follow up on his case with other providers who are more involved withhis case. She later notified me that they would attempt to get him placement at a Shelter Facility despite not being funded. Gianni Aguilar MD Internal Medicine PGY-1 SLINGER documented in this encounter Plan of Treatment [...] ype Group Dates MEDICAID MEDICAID PENDING 2020-Pre [address] [place] [address] Pending PENDING PENDING sent [facility] [place] [address] documented as of this encounter Advance Directives Name Relationship Healthcare Agent Relationship Co mmunication Gay Ag Sibling First [facility] Health Care Agen t
--- OUTSIDE RECORDS SUMMARY | 2020-11-27 20:04 | XMS REPORT | Summary of Care ---
:1985 Author Organization [facility] Address [address] [place] [address] Care Team Providers Name Role Phone Pcp, Does Not Have A Primary Care Provider Reason for Visit Reason Comments Social Work Encounter Details Date Type Department Care Team Description 11/27/2020 Case Management [facility] Internal Michelle Grier, [facility] Social Work Medicine [address] Primary Care Marcelo VILLEGAS [address] , [place] [address] [address] [place] [phone] Allergies No Known Allergiesdocumented as of this encounter (statuses as of 11/27/2020) Medications Medication Sig Dispensed Refills Start Date End Date Status calcium carbonate 500 Take 5 mL 300 mL 0 11/23/2020 021 Active mg [place] CA/5 mL 500 through enteral mg/5 mL [...] Added automatically from request for gin gemini [id number] Bipolar 1 disorder GERD (gastroesophageal reflux disease) [...] on filedocumented in this encounter Progress Notes Radha Grier LMSW - 11/27/2020 1:[address] Aguilar who care for patient in hospital, spoke with KALEIGH regarding a call from a telehealth visit with patient's psychiatrist from [facility]. Per phone call, patient has wounds and needs care. KALEIGH reached out to [facility] who is formulating a planto help patient. Will send to Dr. Aguilar as an FYI. Radha Grier LMSW Dept of Care Management-Outpatient Clinic General Internal Medicine [phone] documented in this encounter Plan of Treatment [...] T e Group Dates MEDICAID MEDICAID PENDING 2020-[address] Pending [place] [address] documented as of this encounter Advance Directives Name Relationship Healthcare Agent Relationship Co mmunication Gay Ag Sibling [facility]
--- OUTSIDE RECORDS SUMMARY | 2020-11-27 20:04 | XMS REPORT | Summary of Care ---
:1985 Author Organization [facility] - [address] [address] Care Team Providers Name Role Phone Pcp, Does Not Have A Primary Care Provider Reason for Visit Reason Comments Social Work Encounter Details Date Type Department Care Team Description 11/25/2020 Patient Outreach [facility] Lisa Bunn [facility] Social Work [address] [address] Allergies No Known Allergiesdocumented as of this encounter (statuses as of 11/26/2020) Medications Medication Sig Dispensed Refills Start Date End Date Status calcium carbonate 500 Take 5 mL 300 mL 0 11/23/2020 021 Active mg [place]/5 mL 500 through enteral mg/5 mL [...] Added automatically from request for gin gemini [id number] Bipolar 1 disorder GERD (gastroesophageal reflux disease) [...] Note LEILA called patient's cousin, Ani Hall ([phone]) to follow up on status of Rx and feed needs. Ms. Hall reports: She is awaiting a current medication list (LEILA emailed it to [email or web address]) Pt is pending an appointment with [facility] in December for mental health care She spoke with [facility], which reports they do not accept Medicaid Pending Spoke with [facility] and [facility] which does accept Medicaid Pending (LEILA eFaxed clinicals) LEILA inquired about an application for Jevity assistance through [employer] and learned that IP submitted the application during patient's IP stay; informed Ms. Hall of above, provided contact info for[employer] [employer], and encouraged her to contact them regarding the status of application. Confirmed Ms. Hall has SW contact info for follow-up prn. Micki Bunn LCSW, JUAN-LEILA Geriatric Social Worker, [email or web address] Work Office Belarusian proficient icki Bunn LCSW - 11/25/2020 10:42 AM CSTSocial Work Note LEILA received a call from pt's cousin, Ani Hall ([phone]), who reported that patient's mother is currently experiencing her own health issues and is unable to provide patient with appropriatecare at this time. Ms. Hall asked SW to update patient's contact information to reflect sister and cousin's contacts; completed. After a discussion regarding needs, Ms. Hall spoke with patient's parents and sister, who decidedhe would benefit from ferry terminal supervisor care while awaiting a determination on Medicaid. LEILA sent clinicals to [facility], and [facility], per family's choice. Pending response. Micki Bunn LCSW, JUAN-LEILA Geriatric Social Worker, [email or web address] Work Office Belarusian proficient astMicki rider LCSW - 11/25/2020 10:42 AM CSTSocial Work Note SW consulted by financial counselor per: mom called Shantel Ag she is needing someone to help in getting some meds or get some sort of direction on who will give him the meds and a few other thing he needs help with, can you have someone call her @ [phone] No answer; left message requesting return call. Micki Bunn LCSW, M-SW Geriatric Social Worker, Social Work Office Belarusian proficient OGRAPH OPERATOR documented in this encounter Plan of Treatment [...] ype Group Dates MEDICAID MEDICAID PENDING 2020-Pre [address] [place] [address] Pending [place] [address] documented as of this encounter Advance Directives Name Relationship Healthcare Agent Relationship Co mmunication Gay Ag Sibling [facility] Agen t
[2020-11-27] MEDS ORDERED: ONDANSETRON 4 MG/2 ML VIAL ONE (20:27)
[2020-11-27] MEDS ORDERED: NA CHLORIDE 0.9% 1,000 ML ONE (20:27)
[2020-11-27] MEDS ORDERED: LIDOCAINE VISCOUS 2% SOLN 15 ML UDC ONE (20:27)
[2020-11-27] MEDS ORDERED: MORPHINE 4 MG/ML SYR ONE (20:27)
--- NOTE | 2020-11-27 20:29 | RAD REPORT ---
EXAM DESCRIPTION: RAD - Chest Single View - 11/27/2020 8:20 pm CLINICAL HISTORY: COUGH Chest pain. COMPARISON: Chest Single View dated 10/09/2020; Chest Single View dated 10/05/2020; Chest Single Vie w dated 06/07/2019; Chest Single View dated 05/19/2018 FINDINGS: Portable technique limits examination quality. The lungs are grossly clear. Significantly tortuous thoracic aorta. No displaced fractures.Superior b ilateral humeral exostoses again noted. IMPRESSION: No acute intrathoracic process suspected.
[2020-11-27] MEDS ORDERED: LORazepam 2 MG/ML VIAL ONE (21:15)
[2020-11-27] MEDS ORDERED: FAMOTIDINE 20 MG/2 ML VIAL IV ONE (21:16)
[2020-11-27 21:22] LABS: Absolute Lymphocytes (CBC) 1.5 K/uL (0.7-4.9); Basophils % 0.2 % (0-1.3); Hematocrit 25.7 % (39.6-49.0); MPV 8.2 fL (7.6-11.3); RBC Red Blood Cell Count 2.85 M/uL (4.33-5.43)
[2020-11-27 21:24] LABS: Protime INR 1.03
[2020-11-27 21:48] LABS: ALT/SGPT 21 U/L (12-78); AST/SGOT 19 U/L (15-37); Albumin 1.4 g/dL (3.4-5.0); Alkaline Phosphatase 120 U/L (45-117); BUN Blood Urea Nitrogen 8 mg/dL (7-18); Bicarbonate 33 mmol/L (21-32); Bilirubin Direct < 0.1 mg/dL (0-0.2); Bilirubin Total 0.2 mg/dL (0.2-1.0); Glucose Level 86 mg/dL (74-106); Magnesium 2.1 mg/dL (1.8-2.4); NT PRO-BNP 196 pg/mL (<125); Potassium 4.5 mmol/L (3.5-5.1); Protein, Total 5.6 g/dL (6.4-8.2); Sodium Level 141 mmol/L (136-145); Troponin (Emerg Dept Use Only) < 0.02 ng/mL (0.0-0.045)
--- NOTE | 2020-11-27 23:17 | ER ---
Nurse's Notes [facility] Name: Tahir Ag Jr Age: 35 yrs Sex: Male : 1985 Arrival Date: 11/27/2020 Time: 19:36 Bed 19 Private MD: Diagnosis: Pressure ulcer-stage 4;Achalasia of cardia;Anemia, unspecified;Type 2 diabetes mellitus;Weakness;Hypotension Presentation: 11/27 19:44 Chief complaint: EMS states: Pt released from [facility] today, pt complaining of ea pain to the left hip. Coronavirus screen: At this time, the client does not indicate any symptoms associated with coronavirus-19. Ebola Screen: No symptoms or risks identified at this time. Initial Sepsis Screen: Does the patient meet any 2 criteria? No. Patient's initial sepsis screen is negative. Does the patient have a suspected source of infection? No. Patient's initial sepsis screen is negative. Risk Assessment: Do you want to hurt yourself or someone else? Patient reports no desire to harm self or others. Onset of symptoms was November 27, 2020. 19:44 Method Of Arrival: EMS: [facility] ea 19:44 Acuity: MARTINA 3 ea Historical: - Allergies: 19:48 No Known Allergies; ea - PMHx: 19:48 Bipolar disorder; Diabetes - NIDDM; Hernia; Hypertension; Schizophrenia; ea - Immunization history:: Adult Immunizations up to date. - Social history:: Smoking status: Patient denies any tobacco usage or history of. - Family history:: not pertinent. Screenin:47 Abuse screen: Denies threats or abuse. Nutritional screening: No deficits noted. ea Tuberculosis screening: No symptoms or risk factors identified. Fall Risk None identified. Assessment: 20:20 General: Appears uncomfortable, slender, emaciated, malnourished, Behavior is sf inappropriate for age, restless, Patient keeps yelling out for doctor, explained several times the doctor will see him, patient keeps yelling out.. Pain: Complains of pain in "all over" Alleviated by nothing. Neuro: Level of Consciousness is awake, alert, obeys commands, Oriented to Appropriate for age. Cardiovascular: Patient's skin is warm and dry. Cardiovascular:. Respiratory: No deficits noted. Airway is patent Respiratory effort is even, unlabored, Respiratory pattern is regular. GI: No signs and/or symptoms were reported involving the gastrointestinal system. 23:11 Reassessment: speaking with pt family regarding POC and dispo at this time. 11/28 01:06 Reassessment: Patient appears in no apparent distress at this time. No changes from sf previously documented assessment. Patient and/or family updated on plan of care and expected duration. Pain level reassessed. Patient given 100mg Gabapentin, 1mg Folic acid, 1mg Risperidone and 15ml of 7.5/325 Lortab elixir via peg tube from home supply per SILVINO Fowler verbal order. Vital Signs: 11/27 19:44 BP 86 / 64; Pulse 92; Resp 19; Temp 98; Pulse Ox 100% ; ea 21:00 BP 142 / 81; Pulse 75; Resp 18; Pulse Ox 92% on 2 lpm NC; sf 22:00 BP 135 / 73; Pulse 75; Resp 18; Pulse Ox 99% ; sf 23:30 BP 112 / 64; Pulse 68; Resp 18; Pulse Ox 100% ; sf ED Course: 19:36 Patient arrived in ED. cf2 19:46 Keshawn Fish MD is Attending Physician. daniel 19:47 Triage completed. ea 19:47 Patient has correct armband on for positive identification. Placed in gown. Bed in low ea position. Call light in reach. Side rails up X2. sales trader on. Pulse ox on. NIBP on. 19:47 Arm band placed on right wrist. Patient placed in an exam room, on a stretcher, on ea pulse oximetry. 19:59 Jan Buenrostro, MARTINA is Primary Nurse. sf 20:20 XRAY Chest (1 view) In Process Unspecified. EDMS 20:25 Inserted saline lock: 20 gauge in right forearm, using aseptic technique. sf 22:45 IV discontinued, bleeding controlled, Pulled out by patient. sf 22:59 Baltazar cath inserted, using sterile technique, 18 Fr., by in, balloon inflated, to ea gravity drainage, urine specimen collected. returned clear yellow urine. Patient tolerated well. 23:14 Mitch Wang MD is Hospitalizing Provider. [facility] 11/28 00:15 Missed attempt(s): 22 gauge in right antecubital area. sf 00:24 Missed attempt(s): 20 gauge in right antecubital area. sf 01:05 Inserted saline lock: 20 gauge in right upper arm, using aseptic technique. ,using sf aseptic technique. VIA ultrasound guidance. 16:45 No provider procedures requiring assistance completed. bp Administered Medications: 11/27 20:28 Drug: NS 0.9% 1000 ml Route: IV; Rate: 1 bolus; Site: right forearm; sf 20:29 Drug: Zofran (Ondansetron) 4 mg Route: IVP; Site: right forearm; sf 23:50 Follow up: Response: No adverse reaction sf 20:30 Drug: morphine 4 mg Route: IVP; Site: right forearm; sf 23:50 Follow up: Response: No adverse reaction sf 21:03 Drug: Pepcid 20 mg Route: IVP; Site: right forearm; sf 23:50 Follow up: Response: No adverse reaction sf 21:03 Drug: Ativan 0.5 mg Route: IVP; Site: right forearm; sf 23:50 Follow up: Response: No adverse reaction sf 21:42 Drug: Ativan 0.5 mg Route: IVP; Site: right forearm; sf 23:50 Follow up: Response: No adverse reaction 11/28 07:08 Drug: Viscous Lidocaine Liquid (4 %) 5 ml Route: Mucous Membrane; bp Outcome: 11/27 23:16 Decision to Hospitalize by Provider. [facility] 11/28 16:45 Admitted to Med/surg accompanied by tech, via stretcher, room 202, with chart, Report bp called to ZELDA MACK Condition: stable Instructed on the need for admit. 16:46 Patient left the ED. bp Signatures: Dispatcher [employer] EDMO Jan Landis, Keshawn Lopez RN, MD MD cha Antunez, Elena, RN RN ea Peltier, Brian, RN RN Valerie Mendoza 2 Jan Buenrostro RN RN sf Corrections: (The following items were deleted from the chart) 01:08 01:06 Reassessment: Patient appears in no apparent distress at this time. No changes sf from previously documented assessment. Patient and/or family updated on plan of care and expected duration. Pain level reassessed. sf
--- NOTE | 2020-11-27 23:17 | EDPHYS ---
Physician Documentation [facility] Name: Tahir Ag Jr Age: 35 yrs Sex: Male : 1985 Arrival Date: 11/27/2020 Time: 19:36 Bed 19 Private MD: ED Physician Keshawn Fish HPI: 11/27 20:07 This 35 yrs old Black Male presents to ER via EMS with complaints of BED SORE ON LEFT daniel HIP. 20:07 Patient presents to ED for recheck of: cellulitis, right hip. The affected area is on daniel the right hip. The affected area is on the coccyx. Previous treatment: wet to dry. Progress: The patient reports decreased. emaciated, poorly compliant, hx of achalasia. Onset: The symptoms/episode began/occurred 3 day(s) ago. Severity of symptoms: At their worst the symptoms were mild moderate in the emergency department the symptoms are unchanged. The patient has experienced similar episodes in the past, multiple times. Historical: - Allergies: 19:48 No Known Allergies; ea - PMHx: 19:48 Bipolar disorder; Diabetes - NIDDM; Hernia; Hypertension; Schizophrenia; ea - Immunization history:: Adult Immunizations up to date. - Social history:: Smoking status: Patient denies any tobacco usage or history of. - Family history:: not pertinent. ROS: 20:07 Constitutional: Negative for fever, chills, and weight loss, Eyes: Negative for injury, daniel pain, redness, and discharge, ENT: Negative for injury, pain, and discharge, Neck: Negative for injury, pain, and swelling, Cardiovascular: Negative for chest pain, palpitations, and edema, Respiratory: Negative for shortness of breath, cough, wheezing, and pleuritic chest pain, Back: Negative for injury and pain, : Negative for injury, bleeding, discharge, and swelling. 20:07 Abdomen/GI: Positive for peg , scaphoid. 20:07 MS/extremity: Positive for wasted extremities. 20:07 Skin: Positive for decubitus to sacrum,stage 3-4. 20:07 Skin: Positive for mild erythema to right hip , no breakdown. 20:07 Psych: Positive for anxiety, poorly compliant. Exam: 20:07 Constitutional: This is a well developed, well nourished patient who is awake, alert, daniel and in no acute distress. Head/Face: Normocephalic, atraumatic. Eyes: Pupils equal round and reactive to light, extra-ocular motions intact. Lids and lashes normal. Conjunctiva and sclera are non-icteric and not injected. Cornea within normal limits. Periorbital areas with no swelling, redness, or edema. ENT: Nares patent. No nasal discharge, no septal abnormalities noted. Tympanic membranes are normal and external auditory canals are clear. Oropharynx with no redness, swelling, or masses, exudates, or evidence of obstruction, uvula midline. Mucous membranes moist. Neck: Trachea midline, no thyromegaly or masses palpated, and no cervical lymphadenopathy. Supple, full range of motion without nuchal rigidity, or vertebral point tenderness. No Meningismus. Chest/axilla: Normal chest wall appearance and motion. Nontender with no deformity. No lesions are appreciated. Cardiovascular: Regular rate and rhythm with a normal S1 and S2. No gallops, murmurs, or rubs. Normal PMI, no JVD. No pulse deficits. Respiratory: Lungs have equal breath sounds bilaterally, clear to auscultation and percussion. No rales, rhonchi or wheezes noted. No increased work of breathing, no retractions or nasal flaring. Back: No spinal tenderness. No costovertebral tenderness. Full range of motion. Male : Normal genitalia with no discharge or lesions. 20:07 Abdomen/GI: Inspection: scaphoid, peg present. 20:07 Skin: Appearance: Color: normal in color, Temperature: normal temperature, Moisture: normal moisture, Wound recheck: sacral decubitus, 3-4 ulcer. 20:07 Neuro: Orientation: is normal, appropriate for stated age, no acute changes, Mentation: appropriate for stated age, no acute changes, Memory: appropriate for stated age, no acute changes, Motor: moves all fours, Sensation: is normal, no obvious gross deficits, Gait: not tested. seizure activity, is not displayed by the patient. Vital Signs: 19:44 BP 86 / 64; Pulse 92; Resp 19; Temp 98; Pulse Ox 100% ; ea 21:00 BP 142 / 81; Pulse 75; Resp 18; Pulse Ox 92% on 2 lpm NC; sf 22:00 BP 135 / 73; Pulse 75; Resp 18; Pulse Ox 99% ; sf 23:30 BP 112 / 64; Pulse 68; Resp 18; Pulse Ox 100% ; sf MDM: 19:46 Patient medically screened. daniel 20:13 Differential diagnosis: cellulitis. Differential Diagnosis altered mental status, daniel sepsis. Data reviewed: vital signs, nurses notes, lab test result(s), EKG, radiologic studies. Data interpreted: phototypesetting equipment monitor: rate is 92 beats/min, rhythm is regular, Pulse oximetry: on room air is 100 %. Test interpretation: by ED physician or midlevel provider: ECG, plain radiologic studies. Counseling: I had a detailed discussion with the patient and/or guardian regarding: the historical points, exam findings, and any diagnostic results supporting the discharge/admit diagnosis, lab results, radiology results. 11/27 20:06 Order name: Basic Metabolic Panel [facility] 11/27 20:06 Order name: CBC with Diff [facility] 11/27 20:06 Order name: LFT's [facility] 11/27 20:06 Order name: Magnesium [facility] 11/27 20:06 Order name: NT PRO-BNP [facility] 11/27 20:06 Order name: PT-INR [facility] 11/27 20:06 Order name: Troponin (emerg Dept Use Only) [facility] 11/27 20:06 Order name: Urine Culture [facility] 11/27 20:06 Order name: Lactate; Complete Time: 22:46 [facility] 11/27 20:07 Order name: Basic Metabolic Panel; Complete Time: 22:46 EDMS 11/27 20:07 Order name: CBC with Automated Diff; Complete Time: 22:46 EDMS 11/27 20:07 Order name: Liver (Hepatic) Function; Complete Time: 22:46 EDMS 11/27 20:07 Order name: Magnesium; Complete Time: 22:46 EDMS 11/27 20:07 Order name: NT PRO-BNP; Complete Time: 22:46 EDMS 11/27 20:06 Order name: XRAY Chest (1 view); Complete Time: 20:32 [facility] 11/27 20:06 Order name: EKG; Complete Time: 20:07 [facility] 11/27 20:06 Order name: Cardiac monitoring; Complete Time: 23:54 [facility] 11/27 20:06 Order name: EKG - Nurse/Tech; Complete Time: 23:54 [facility] 11/27 20:07 Order name: Protime (+INR); Complete Time: 22:46 [facility] 11/27 20:07 Order name: Troponin (Emerg Dept Use Only); Complete Time: 22:46 [facility] 11/27 20:24 Order name: Type And Screen; Complete Time: 22:46 [facility] 11/27 23:46 Order name: SARS-COV-2 RT PCR [facility] 11/27 20:06 Order name: IV Saline Lock; Complete Time: 23:53 [facility] 11/27 20:06 Order name: Labs collected and sent; Complete Time: 23:53 [facility] 11/27 20:06 Order name: O2 Per Protocol; Complete Time: 23:53 [facility] 11/27 20:06 Order name: O2 Sat Monitoring; Complete Time: 23:53 [facility] 11/27 20:06 Order name: Urine Dipstick-Ancillary (obtain specimen); Complete Time: 23:54 [facility] 11/27 20:06 Order name: Baltazar; Complete Time: 23:54 [facility] 11/27 20:06 Order name: Misc. Order: wet to dry sacral; Complete Time: 23:54 [facility] Administered Medications: 20:28 Drug: NS 0.9% 1000 ml Route: IV; Rate: 1 bolus; Site: right forearm; sf 20:29 Drug: Zofran (Ondansetron) 4 mg Route: IVP; Site: right forearm; sf 23:50 Follow up: Response: No adverse reaction sf 20:30 Drug: morphine 4 mg Route: IVP; Site: right forearm; sf 23:50 Follow up: Response: No adverse reaction sf 21:03 Drug: Pepcid 20 mg Route: IVP; Site: right forearm; sf 23:50 Follow up: Response: No adverse reaction sf 21:03 Drug: Ativan 0.5 mg Route: IVP; Site: right forearm; sf 23:50 Follow up: Response: No adverse reaction sf 21:42 Drug: Ativan 0.5 mg Route: IVP; Site: right forearm; sf 23:50 Follow up: Response: No adverse reaction sf 11/28 07:08 Drug: Viscous Lidocaine Liquid (4 %) 5 ml Route: Mucous Membrane; bp Disposition: 11/27/20 23:16 Hospitalization ordered by Mitch Wang for Inpatient Admission. Preliminary diagnosis are Pressure ulcer - stage 4, Achalasia of cardia, Anemia, unspecified, Type 2 diabetes mellitus, Weakness, Hypotension. - Bed requested for Telemetry/MedSurg (Inpatient). - Status is Inpatient Admission. bp - Condition is Fair. - Problem is new. - Symptoms have improved. Signatures: Dispatcher [employer] EDKY Keshawn Fish MD MD cha Attema, Lee, DRYING OVEN TENDER-C DRYING OVEN TENDER-Cla1 Antionette Perez, RN MARTINA cg Gina Alcaraz RN RN ea Peltier, Brian, RN RN bp Francie Akers Jan Buenrostro RN RN sf Corrections: (The following items were deleted from the chart) 11/27 22:46 20:17 CORONAVIRUS+MR.LAB.BRZ ordered. EDKY EDKY 23:19 23:16 Hospitalization Ordered by Mitch Wang MD for Inpatient Admission. Preliminary [facility] diagnosis is Pressure ulcer - stage 4; Achalasia of cardia; Anemia, unspecified; Type 2 diabetes mellitus; Weakness. Bed requested for Telemetry/MedSurg (Inpatient). Status is Inpatient Admission. Condition is Fair. Problem is new. Symptoms have improved. [facility] 11/28 01:21 0204 23:19 11/27/2020 23:16 Hospitalization Ordered by Mitch Wang MD for Inpatient cg Admission. Preliminary diagnosis is Pressure ulcer - stage 4; Achalasia of cardia; Anemia, unspecified; Type 2 diabetes mellitus; Weakness; Hypotension. Bed requested for Telemetry/MedSurg (Inpatient). Status is Inpatient Admission. Condition is Fair. Problem is new. Symptoms have improved. [facility] 11/28 16:22 01:21 11/27/2020 23:16 Hospitalization Ordered by Mitch Wang MD for Inpatient eb Admission. Preliminary diagnosis is Pressure ulcer - stage 4; Achalasia of cardia; Anemia, unspecified; Type 2 diabetes mellitus; Weakness; Hypotension. Bed requested for [facility] ER HOLD. Status is Inpatient Admission. Condition is Fair. Problem is new. Symptoms have improved. 16:46 16:22 11/27/2020 23:16 Hospitalization Ordered by Mitch Wang MD for Inpatient bp Admission. Preliminary diagnosis is Pressure ulcer - stage 4; Achalasia of cardia; Anemia, unspecified; Type 2 diabetes mellitus; Weakness; Hypotension. Bed requested for Telemetry/MedSurg (Inpatient). Status is Inpatient Admission. Condition is Fair. Problem is new. Symptoms have improved. eb
--- NOTE | 2020-11-28 00:41 | P.HP ---
Certification for Inpatient Patient admitted to: Observation With expected LOS: <2 Midnights Patient will require the following post-hospital care: Intermediate Practitioner: I am a practitioner with admitting privileges, knowledge of patient current condition, hospital course, and medical plan of care. Services: Services provided to patient in accordance with Admission requirements found in Title 42 Section 412.3 of the Code of Federal Regulations <Malcolm Villa - Last Filed: 11/28/20 00:35> Patient admitted to: Inpatient Patient will require the following post-hospital care: Other (longterm) Practitioner: I am a practitioner with admitting privileges, knowledge of patient current condition, hospital course, and medical plan of care. Services: Services provided to patient in accordance with Admission requirements found in Title 42 Section 412.3 of the Code of Federal Regulations <Javad Hernández - Last Filed: 11/28/20 11:55> Patient History Date of Service: 11/28/20 Primary Care Provider: none Reason for admission: Debility, achalasia, sacral decubitus History of Present Illness: 35-year-old male with history of schizophrenia, diabetes mellitus type 2, hypertension, bipolar disorder, achalasia with severe malnutrition presents emergency department for left hip pain. Patient with large left hip decubitus stage 3-4. Patient was recently released from [facility] after having PEG tube inserted, daughter Gay reports that when he was discharged he was supposed to have placement set up but the patient care auto claim representative at [facility] stated that there was miscommunication between the physician and social service technician and the patient did not have placement aligned. Patient was discharged back to his mother and father's house who are both disabled after having strokes and unable to care for him. Patient was brought into the emergency department for pain and inability to care for patient at home. Case was discussed with sister at length, they do not have the resources to care for her brother at home as both of her parents are disabled themselves and patient requires a high level of care with large chronic wound, PEG tube etc. At this time patient has nowhere to be discharged to. For that reason he will be admitted under observation until a solution can be found. Large decubitus to left hip with granulation tissue present, appears to be reasonably healthy, will consult wound healing for evaluation. - Past Medical/Surgical History -: Diabetes mellitus type 2 -: Achalasia with severe malnutrition -: Bipolar disorder -: Schizophrenia Past Surgical History: Unable to obtain Psychosocial/ Personal History: Patient with severe bipolar/schizophrenia, achalasia, chronic wounds. Patient was staying with his parents who are now disabled. - Family History Family History: Reviewed- Non-Contributory - Social History Smoking Status: Unknown if ever smoked Place of Residence: Home <Malcolm Villa - Last Filed: 11/28/20 00:35> Date of Service: 11/28/20 <Javad Hernández - Last Filed: 11/28/20 11:55> Allergies No Known Allergies Allergy (Unverified 12/10/11 10:57) Home Medications: Folic Acid 1 mg FT DAILY 11/28/20 Gabapentin 100 mg FT TID 11/28/20 Hydrocodone/APAP Soln [Lortab Solution] 15 ml FT Q6HR 11/28/20 Risperidone [Risperdal] 1 mg FT BID 11/28/20 Review of Systems is unable to be obtained <Malcolm Villa - Last Filed: 11/28/20 00:35> Physical Examination - Physical Exam General: Oriented x2, Cachectic, Other (Severely malnourished, severely cachectic) HEENT: Other (Mucous membranes dry) Neck: Supple Respiratory: Clear to auscultation bilaterally, Normal air movement Cardiovascular: Regular rate/rhythm, Normal S1 S2 Capillary refill: <2 Seconds Gastrointestinal: Normal bowel sounds, Other (PEG tube in place) Musculoskeletal: No tenderness, No warmth Integumentary: Pressure ulcer (Large left hip decubitus stage 3-4) Neurological: Normal speech, Sensation intact - Studies Laboratory Data (last 24 hrs) 11/27/20 21:00: PT 11.8, INR 1.03 11/27/20 21:00: WBC 5.30, Hgb 8.8 L, Hct 25.7 L, Plt Count 377 11/27/20 21:00: Sodium 141, Potassium 4.5, BUN 8, Creatinine < 0.15 L, Glucose 86, Magnesium 2.1, Total Bilirubin 0.2, AST 19, ALT 21, Alkaline Phosphatase 120 H <Malcolm Villa - Last Filed: 11/28/20 00:35> - Studies Laboratory Data (last 24 hrs) 11/27/20 21:00: PT 11.8, INR 1.03 11/27/20 21:00: WBC 5.30, Hgb 8.8 L, Hct 25.7 L, Plt Count 377 11/27/20 21:00: Sodium 141, Potassium 4.5, BUN 8, Creatinine < 0.15 L, Glucose 86, Magnesium 2.1, Total Bilirubin 0.2, AST 19, ALT 21, Alkaline Phosphatase 120 H <Javad Hernández - Last Filed: 11/28/20 11:55> Assessment and Plan - Plan Assessment Debility, severe malnutrition secondary to achalasia Large left hip decubitus stage 3-4 Diabetes mellitus type 2 Bipolar disorder/schizophrenia Plan Debility, severe malnutrition secondary to achalasia: Patient is severely cachectic, malnourished. Patient recently had a PEG tube inserted at [facility], continue with dietitian evaluation for appropriate tube feeds. Case discussed with sister, patient is to have nothing by mouth, only through tube, with recent history of aspiration with intubation. Sister states patient cannot be cared for effectively at home, both parents are disabled, needs skilled placement. No safe place for discharge tonight. Will need to consult social service technician to arrange for it safe discharge. Large left hip decubitus stage 3-4: Wound healing consult in place, continue with wet-to-dry dressing at this time. Diabetes mellitus type 2: Patient mildly hypoglycemic, no p.o. intake, continue with D5 half NS at this time. A.c. HS Accu-Cheks with sliding scale insulin. Bipolar disorder/schizophrenia: Obtain and continue home medications as appropriate. Discharge Plan: Long Term Plan to discharge in: 24 Hours - Advance Directives Does patient have a Living Will: No Does patient have a Durable POA for Healthcare: No - Code Status/Comfort Care Code Status Assessed: Yes (Full code) Critical Care: No Time Spent Managing Pts Care (In Minutes): 55 <Malcolm Villa - Last Filed: 11/28/20 00:35> - Plan Case discussed in detail with nurse practitioner. Please see note for details <Javad Hernández - Last Filed: 11/28/20 11:55>
[2020-11-28] MEDS ORDERED: D5 0.45 NS 1,000 ML IV SCH (01:00)
[2020-11-28 04:07] VITALS: BMI 14.1
[2020-11-28] MEDS ORDERED: D5 0.45 NS 1,000 ML IV ONE (05:44)
[2020-11-28] MEDS: HYDROCOD 2.5mg-ACETAMIN 108mg/5mL Soln FT PRN ×3 (06:10→20:41)
[2020-11-28] MEDS ORDERED: HYDROCOD 2.5mg-ACETAMIN 108mg/5mL Soln FT PRN (09:32)
[2020-11-28] MEDS: LORazepam 2 MG/ML VIAL IV PRN ×2 (09:45→21:59)
[2020-11-28] MEDS ORDERED: LORazepam 2 MG/ML VIAL ONE (10:10)
--- NOTE | 2020-11-28 12:00 | P.PN ---
Subjective Date of Service: 11/28/20 Primary Care Provider: none Chief Complaint: Debility, achalasia, sacral decubitus Subjective: Other (Patient alert. Cooperative) Physical Examination - Vital Signs Blood Pressure: 101/76 Pulse: 91 Respirations: 19 Pulse Ox (%): 100 - Studies Laboratory Data (last 24 hrs) 11/27/20 21:00: PT 11.8, INR 1.03 11/27/20 21:00: WBC 5.30, Hgb 8.8 L, Hct 25.7 L, Plt Count 377 11/27/20 21:00: Sodium 141, Potassium 4.5, BUN 8, Creatinine < 0.15 L, Glucose 86, Magnesium 2.1, Total Bilirubin 0.2, AST 19, ALT 21, Alkaline Phosphatase 120 H Assessment & Plan Discharge Plan: Other (custodial placement) Plan to discharge in: Greater than 2 days Physician Review Additional Text: Physical exam: Patient alert, cooperative. Slight confusion noted. Patient appears very cachectic. Patient not well kept. Severely malnourished appearance. Heart: Regular rate rhythm Lungs: Clear to auscultation GI: Soft nontender. Peg tube in place. Extremities: Muscle wasting throughout. Impression: Debility, severe malnutrition secondary to achalasia now with PEG tube Large left hip decubitus stage 3-4 Diabetes mellitus type 2 Bipolar disorder/schizophrenia Anemia of chronic disease Plan Debility, severe malnutrition secondary to achalasia now with PEG tube: Patient recently discharge from [facility] with PEG tube. Spoke with ambulatory social sciences lecturer at [facility] and sisters to advocate for the patient. Sister's report patient was to be sent to a Medicaid pending assisted. Sisters also report that they had completed registration for patient assistance for his Jevity- nutrition for his PEG tube. From the sisters' perspective, patient was discharged prematurely without advanced notice. Sisters report patient went home but could not take care of himself. Sisters report patient lives in an unsafe environment. Patient lives with 2 elderly parents. Sisters are not able to take care of patient. They had hoped the patient would not have been discharged from [facility] at that time and sent to a Medicaid pending assisted for long-term care. Sisters report that they were unaware that the patient had been discharge. I was able to get in contact with Micki Romero, ambulatory social sciences lecturer at [facility]. She was apparently helping the patient with his supplements and home health. She was not able to review the notes from the inpatient hospital service. She is primarily helping to get Jevity for the patient. She was also trying to arrange for home health which was going to be paid by the hospital. Patient currently stable at this time. Case discussed with administration. Will reach out to [facility] attending, MEDICAL OFFICE ASSISTANT INSTRUCTOR, and pillowcase folder to determine what happened. Will continue nutrition. Dietary consulted to further evaluate and treat. Social work consulted to continue to pursue Medicaid pending assisted placement for long-term care. Will check to see if [facility] to see if they are willing to accept transfer for continuity of care and completion of hospitalization. Large left hip decubitus stage 3-4: Wound healing consult in place, continue with wet-to-dry dressing at this time. Diabetes mellitus type 2: Patient mildly hypoglycemic, no p.o. intake, continue with D5 half NS at this time. A.c. HS Accu-Cheks with sliding scale insulin. Bipolar disorder/schizophrenia: Continue medication. Anemia of chronic disease: Stable. Time Spent Managing Pts Care (In Minutes): 55
[2020-11-28] MEDS ORDERED: GABAPENTIN 300 MG CAP ONE ×2 (12:07→14:20)
[2020-11-28] MEDS: GABAPENTIN 100 MG CAP FT SCH ×2 (14:00→20:43)
[2020-11-28] MEDS: RISPERIDONE 1 MG TABLET FT SCH (20:43)
[2020-11-29] MEDS: HYDROCOD 2.5mg-ACETAMIN 108mg/5mL Soln FT PRN ×3 (04:28→18:43)
[2020-11-29 06:54] LABS: Absolute Lymphocytes (CBC) 1.4 K/uL (0.7-4.9); Basophils % 0.2 % (0-1.3); Hematocrit 27.4 % (39.6-49.0); Lymphocytes % 14.3 % (15.3-44.8); MPV 8.5 fL (7.6-11.3); RBC Red Blood Cell Count 2.98 M/uL (4.33-5.43)
[2020-11-29 07:10] LABS: BUN Blood Urea Nitrogen 7 mg/dL (7-18); Bicarbonate 31 mmol/L (21-32); Glucose Level 78 mg/dL (74-106); Potassium 4.3 mmol/L (3.5-5.1); Sodium Level 139 mmol/L (136-145)
[2020-11-29 07:29] LABS: Ferritin 548.7 ng/mL (26-388)
[2020-11-29] MEDS: RISPERIDONE 1 MG TABLET FT SCH ×2 (08:30→20:38)
[2020-11-29] MEDS: LORazepam 2 MG/ML VIAL IV PRN ×2 (08:30→15:37)
[2020-11-29] MEDS: FOLIC ACID 1 MG TABLET FT SCH (08:30)
[2020-11-29] MEDS: GABAPENTIN 100 MG CAP FT SCH ×3 (08:30→20:38)
[2020-11-29 10:05] LABS: Blood Morphology Comment NOTED (NOT SEEN); Macrocytosis 1+; Platelet Estimate ADEQ; White Blood Cell Scan OK (OK)
--- NOTE | 2020-11-29 14:40 | P.PN ---
Subjective Date of Service: 11/29/20 Primary Care Provider: none Chief Complaint: Debility, achalasia, sacral decubitus Subjective: Other (Patient alert, cooperative. Patient reports that he wants something the eat.) Physical Examination - Vital Signs Temperature: 97.5 F Blood Pressure: 90/61 Pulse: 89 Respirations: 20 Pulse Ox (%): 100 Assessment & Plan Discharge Plan: Other (Long-term care [facility] facility) Physician Review Additional Text: Physical exam: Patient alert, cooperative. Patient more alert and cooperative. Patient appears very cachectic. Patient not well kept. Severely malnourished appearance. Heart: Regular rate rhythm Lungs: Clear to auscultation GI: Soft nontender. Peg tube in place. Extremities: Muscle wasting throughout. Nurses report left large hip stage 3-4 decubitus ulcer. Impression: Debility, severe malnutrition secondary to achalasia now with PEG tube Large left hip decubitus stage 3-4 ulcer Diabetes mellitus type 2 Bipolar disorder/schizophrenia Anemia of chronic disease Plan Debility, severe malnutrition secondary to achalasia now with PEG tube: Continue with PEG tube feeds. Continue with clear liquids. No straws. Aspiration and fall precaution in place. Physical therapy and occupational therapy consultation made. Spoke with family and [facility] ambulatory pillowcase folder- Micki Bunn. solar installation manager trying to arrange for Medicaid pending bed at local [facility]. I spoke to our pillowcase folder today to send paperwork as recommended by the ambulatory pillowcase folder. Transfer back to [facility] unsuccessful due to lack of beds. Ambulatory pillowcase folder suspects this will be difficult to do. Will continue to reach out to [facility]. Patient unsafe to go home due to deplorable conditions at home with minimal help. Sister's agree with transfer to Medicaid pending bed to local [facility] for long-term care once available. Anticipate this to occur soon. Hopefully as early as Tuesday. Large left hip decubitus stage 3-4: Wound healing consult in place, continue with wet-to-dry dressing at this time. Diabetes mellitus type 2: IV fluids discontinued. Continue Accu-Cheks. Sliding scale in place.. Bipolar disorder/schizophrenia: Continue current medication. Anemia of chronic disease: Stable. Continue with supplementation. Time Spent Managing Pts Care (In Minutes): 55
[2020-11-29] MEDS: MORPHINE 2 MG/ML SYR IV PRN (17:07)
[2020-11-30] MEDS: MORPHINE 2 MG/ML SYR IV PRN (04:06)
[2020-11-30] MEDS: RISPERIDONE 1 MG TABLET FT SCH ×2 (07:51→22:09)
[2020-11-30] MEDS: LORazepam 2 MG/ML VIAL IV PRN ×2 (07:52→22:48)
[2020-11-30] MEDS: THIAMINE HCL 100 MG TABLET FT SCH (07:52)
[2020-11-30] MEDS: FOLIC ACID 1 MG TABLET FT SCH (07:52)
[2020-11-30] MEDS: GABAPENTIN 100 MG CAP FT SCH ×3 (07:52→22:09)
[2020-11-30] MEDS: MULTIVITAMINS 5 ML ORAL SYR FT SCH (09:00)
[2020-11-30] MEDS: HYDROCOD 2.5mg-ACETAMIN 108mg/5mL Soln FT PRN ×2 (09:04→17:54)
--- NOTE | 2020-11-30 10:58 | P.PN ---
Subjective Date of Service: 11/30/20 Primary Care Provider: none Chief Complaint: Debility, achalasia, sacral decubitus Subjective: Other (Patient stable. Patient desires to go home. Increase anxiety noted.) Physical Examination - Vital Signs Temperature: 98.9 F Blood Pressure: 102/64 Pulse: 113 Respirations: 18 Pulse Ox (%): 100 Assessment & Plan Discharge Plan: Other (Long-term residential facility) Plan to discharge in: 24 Hours Physician Review Additional Text: Initial chief complaint: Severe malnutrition with poor social situation at home. Not able to take care of himself. Recently discharged from [facility] Physical exam: Patient alert, cooperative. Patient more alert and cooperative. Increase anxiety noted. Patient appears very cachectic. Patient not well kept. Severely malnourished appearance. Heart: Regular rate rhythm Lungs: Clear to auscultation GI: Soft nontender. Peg tube in place. Extremities: Muscle wasting throughout. Nurses report left large hip stage 3-4 decubitus ulcer. Psych: Increased anxiety noted. No significant distress noted. Impression: Debility, severe malnutrition secondary to achalasia now with PEG tube Large left hip decubitus stage 3-4 ulcer History of Diabetes mellitus type 2 Bipolar disorder/schizophrenia Anemia of chronic disease Plan Debility, severe malnutrition secondary to achalasia now with PEG tube: Continue PEG tube feeds. Patient also on clear liquids. No straws. May have dropped. Dietary consulted to address daily needs. Will also consult speech for recommendations. Spoke with sister at length concerning plan of care. Social work working to send patient to long-term residential care facility-[facility]. Also spoke to social services technician at [facility] yesterday to help in this process. Family desired psychiatric evaluation to address his bipolar/schizophrenia. Will reach out to Psychiatry to see if patient requires further medication. Infectious Disease also consulted to address chronic large left stage IV decubitus. Await recommendation. Also left a message with PUMP OILER at [facility] to discuss care done at [facility] on behalf of the family. Transfer to [facility] was denied yesterday. Anticipate transfer to [facility] will not be possible. Hopefully patient will be accepted to residential placement in the next several days. Sister in process to get medical power of employee benefits attorney. Continue to work with sister to help patient as best possible. I will turn the service over to the hospitalist team tomorrow. I will go plan of care with him. Large left hip decubitus stage 4: Wound healing consult in place. Infectious Disease also consulted to address wound. Continue with wet-to-dry dressing at this time. History of Diabetes mellitus type 2: Doubt diabetes at this time. Blood sugars controlled. Will need to monitor for hypoglycemia. Continue Accu-Cheks. Sliding scale in place.. Bipolar disorder/schizophrenia: Continue current medication. Will check to see how much lorazepam patient requires as this may be able to be changed to oral. Psychiatry consulted to further evaluate and address. Await further recommendations on his medications. Anemia of chronic disease: Stable. Continue with supplementation. Time Spent Managing Pts Care (In Minutes): 55
[2020-11-30] MEDS ORDERED: NA CHLORIDE 0.9% 250 ML IV ONE ×2 (12:29→12:33)
[2020-11-30] MEDS ORDERED: NA CHLORIDE 0.9% 1,000 ML IV SCH (14:00)
[2020-11-30] MEDS: NA CHLORIDE 0.9% 1,000 ML IV SCH (14:29)
[2020-11-30 17:39] LABS: Absolute Lymphocytes (CBC) 1.8 K/uL (0.7-4.9); Basophils % 0.1 % (0-1.3); Hematocrit 27.6 % (39.6-49.0); Lymphocytes % 18.6 % (15.3-44.8); MPV 8.8 fL (7.6-11.3)
[2020-11-30 18:47] LABS: BUN Blood Urea Nitrogen 12 mg/dL (7-18); Bicarbonate 32 mmol/L (21-32); Glucose Level 84 mg/dL (74-106); Potassium 4.6 mmol/L (3.5-5.1); Sodium Level 138 mmol/L (136-145)
[2020-11-30] MEDS: GLUCERNA 1.5 CAL 1,000 ML BOT RTH SCH (22:48)
[2020-12-01 04:36] LABS: Absolute Lymphocytes (CBC) 1.9 K/uL (0.7-4.9); Basophils % 0.2 % (0-1.3); MPV 8.3 fL (7.6-11.3); RBC Red Blood Cell Count 3.32 M/uL (4.33-5.43)
[2020-12-01 04:46] LABS: BUN Blood Urea Nitrogen 8 mg/dL (7-18); Bicarbonate 34 mmol/L (21-32); Glucose Level 80 mg/dL (74-106); Potassium 4.6 mmol/L (3.5-5.1); Sodium Level 141 mmol/L (136-145)
[2020-12-01] MEDS: HYDROCOD 2.5mg-ACETAMIN 108mg/5mL Soln FT PRN ×2 (06:50→11:35)
[2020-12-01] MEDS: LORazepam 2 MG/ML VIAL IV PRN (08:48)
[2020-12-01] MEDS: THIAMINE HCL 100 MG TABLET FT SCH (08:49)
[2020-12-01] MEDS: GABAPENTIN 100 MG CAP FT SCH ×2 (08:49→13:30)
[2020-12-01] MEDS: MULTIVITAMINS 5 ML ORAL SYR FT SCH (08:49)
[2020-12-01] MEDS: RISPERIDONE 1 MG TABLET FT SCH (08:50)
[2020-12-01] MEDS: FOLIC ACID 1 MG TABLET FT SCH (08:50)
[2020-12-01] MEDS: NA CHLORIDE 0.9% 1,000 ML IV SCH (09:09)
[2020-12-01] MEDS: VENLAFAXINE HCL 37.5 MG TAB PO SCH (13:31)
--- NOTE | 2020-12-01 15:29 | P.PN ---
Subjective Date of Service: 12/01/20 Patient was given medication for sedation. Spoke to sister and updated her on patient's condition. Patient was seen by speech therapy and recommended oral intake as well as additional supplementation for increasing nutrition. Awaiting for transfer to [facility] rehab. Review of Systems 10-point ROS is otherwise unremarkable Physical Examination - Vital Signs Temperature: 97.8 F Blood Pressure: 95/65 Pulse: 111 Respirations: 18 Pulse Ox (%): 100 - Physical Exam General: Alert, In no apparent distress, Oriented x3 Respiratory: Clear to auscultation bilaterally, Normal air movement Cardiovascular: Regular rate/rhythm, Normal S1 S2, No murmurs Gastrointestinal: Normal bowel sounds, Soft and benign, Non-distended, No tenderness Musculoskeletal: No clubbing, No swelling, No tenderness Neurological: Sensation intact, Cranial nerves 3-12 intact - Studies Medications List Reviewed: Yes Assessment & Plan - Problems (Diagnosis) (1) Malnutrition Current Visit: Yes Status: Acute (2) S/P percutaneous endoscopic gastrostomy (PEG) tube placement Current Visit: Yes Status: Acute (3) Sacral decubitus ulcer, stage IV Current Visit: Yes Status: Acute (4) Achalasia Current Visit: Yes Status: Acute (5) Bipolar 1 disorder Current Visit: Yes Status: Acute (6) Schizophrenia Current Visit: Yes Status: Acute - Plan 1. Continue with IV antibiotic 2. Continue with local wound care 3. Wound care consultation/surgical consultation appreciated 4. Gentle IV hydration/diet as tolerated 5. Monitor CBC 6. Protein supplementation as necessary 7. Pain control 8. Appreciate psychiatric evaluation and antipsychotic spur their recommendation 9. Awaiting placement 10. GI and DVT prophylaxis Discharge Plan: Home - Advance Directives Does patient have a Living Will: No Does patient have a Durable POA for Healthcare: No - Code Status/Comfort Care Code Status Assessed: Yes Code Status: Full Code Critical Care: No Time Spent Managing PTS Care (In Minutes): 35
--- NOTE | 2020-12-01 17:42 | CON ---
History Of Present Illness: This is a 35-year-old male. I was consulted for sacral coccyx stage IV wound. The patient has significant history of schizophrenia, diabetes mellitus type 2, hypertension, bipolar disorder, achalasia with severe malnourishment. The patient comes to the emergency room wit h hip pain. The patient has large sacral coccyx wound. The patient is able to eat also other than P EG tube, which was inserted at [facility] in [place]. The patient has no other complaints. Past Medical History: As per HPI. Social History: Nonsmoker. No alcohol. Family History: Noncontributory. Medications: Tylenol, hydrocodone, folic acid, gabapentin, lorazepam, Remeron, multivitamin, Zofran, Risperdal, vitamin B, and Effexor. Allergies: NO KNOWN DRUG ALLERGIES. Review of Systems: A 10-point review was performed. Physical Examination: General: This is a 35-year-old male, lying in bed, not in any acute cardiopulmonary distress. Vital Signs: Temperature 97.8, pulse 111, respirations 17, blood pressure 95/65. HEENT: Unremarkable. Neck: Supple. Lungs: Clear to auscultation. Heart: S1, S2. Regular. Abdomen: Soft, nontender. Bowel sounds present. Extremities: Muscle wasting noted and sacral coccyx stage IV large wound noted with wound base with 100% granulation tissue. Laboratory Data: Shows WBC 8.1, hemoglobin 10.1, platelets are 302. Chemistry shows sodium 141, pot assium 4.6, chloride 103, bicarb 34, BUN is , creatinine 0.15, glucose is 80. His procalci tonin is 0.05. Urine cultures are pending. Chest x-ray is negative for any infiltrate. Assessment And Plan: 1.Sacral coccyx stage IV wound. We will recommend wound VAC placement or Medihoney with Alginate. 2.Severe malnourishment. Continue nutrition as the patient needed for healing of his wounds. Also recommend to get a CT of his sacral coccyx region to rule out any osteomyelitis. 3.Diabetes mellitus and anemia of chronic disease associated with malnourishment. Continue supporti ve care. The patient is on no antibiotic. We will follow closely. Thank you Dr. Hernández for consult. NF/MODL Voice ID: [id number] Report ID: [id number]
[2020-12-02] MEDS: HYDROCOD 2.5mg-ACETAMIN 108mg/5mL Soln FT PRN ×3 (00:22→16:05)
[2020-12-02] MEDS: RISPERIDONE 1 MG TABLET FT SCH ×3 (00:23→20:48)
[2020-12-02] MEDS: GABAPENTIN 100 MG CAP FT SCH ×5 (00:23→20:48)
[2020-12-02] MEDS: MIRTAZAPINE 15 MG TAB PO SCH ×2 (00:23→20:48)
[2020-12-02] MEDS: GLUCERNA 1.5 CAL 1,000 ML BOT RTH SCH (00:26)
[2020-12-02] MEDS: NA CHLORIDE 0.9% 1,000 ML IV SCH ×2 (04:11→06:00)
[2020-12-02 05:49] LABS: Absolute Lymphocytes (CBC) 1.9 K/uL (0.7-4.9); Basophils % 0.2 % (0-1.3); Hematocrit 31.3 % (39.6-49.0); Lymphocytes % 23.1 % (15.3-44.8); MPV 8.3 fL (7.6-11.3); RBC Red Blood Cell Count 3.35 M/uL (4.33-5.43)
[2020-12-02 06:13] LABS: BUN Blood Urea Nitrogen 9 mg/dL (7-18); Bicarbonate 31 mmol/L (21-32); Glucose Level 81 mg/dL (74-106); Potassium 4.5 mmol/L (3.5-5.1); Sodium Level 139 mmol/L (136-145)
[2020-12-02] MEDS: FOLIC ACID 1 MG TABLET FT SCH (08:10)
[2020-12-02] MEDS: THIAMINE HCL 100 MG TABLET FT SCH (08:10)
[2020-12-02] MEDS: MULTIVITAMINS 5 ML ORAL SYR FT SCH (08:11)
[2020-12-02] MEDS: SOD FERRIC GLUC COMPLX/SUCROSE 125 MG in NA CHLORIDE 0.9% 100 ML IV SCH (08:15)
[2020-12-02] MEDS: LORazepam 2 MG/ML VIAL IV PRN (08:19)
--- NOTE | 2020-12-02 09:06 | P.PN ---
Date of Service: 12/02/20 Subjective No significant change in clinical status. Review of Systems 10-point ROS is otherwise unremarkable Physical Examination - Vital Signs Reviewed - Physical Exam General: Alert, In no apparent distress, Oriented x3 Respiratory: Clear to auscultation bilaterally, Normal air movement Cardiovascular: Regular rate/rhythm, Normal S1 S2, No murmurs Gastrointestinal: Normal bowel sounds, Soft and benign, Non-distended, No tenderness Musculoskeletal: No clubbing, No swelling, No tenderness Neurological: Sensation intact, Cranial nerves 3-12 intact - Studies Medications List Reviewed: Yes Assessment & Plan - Problems (Diagnosis) (1) Malnutrition Current Visit: Yes Status: Acute (2) S/P percutaneous endoscopic gastrostomy (PEG) tube placement Current Visit: Yes Status: Acute (3) Sacral decubitus ulcer, stage IV Current Visit: Yes Status: Acute (4) Achalasia Current Visit: Yes Status: Acute (5) Bipolar 1 disorder Current Visit: Yes Status: Acute (6) Schizophrenia Current Visit: Yes Status: Acute - Plan 1. Continue with IV antibiotic; will change to oral antibiotics 2. Continue with local wound care 3. Wound care consultation appreciated 4. Continue tube feedings 5. Monitor CBC 6. Protein supplementation as necessary 7. Pain control 8. Appreciate psychiatric evaluation and antipsychotics per their recommendation; will adjust dosage as needed 9. Awaiting placement 10. GI and DVT prophylaxis
--- NOTE | 2020-12-02 16:32 | P.PN ---
Subjective Date of Service: 12/02/20 Primary Care Provider: none Chief Complaint: Debility, achalasia, sacral decubitus Subjective: No new changes Review of Systems 10-point ROS is otherwise unremarkable Physical Examination - Vital Signs Temperature: 98.4 F Blood Pressure: 91/61 Pulse: 121 Respirations: 17 Pulse Ox (%): 99 - Physical Exam General: Alert, In no apparent distress, Cachectic, Other (severe malnutrition ) HEENT: Atraumatic, Normocephalic, PERRLA Neck: Supple, 2+ carotid pulse no bruit, JVD not distended, No Thyromegaly Respiratory: Clear to auscultation bilaterally, Normal air movement Cardiovascular: No edema, Normal pulses, Regular rate/rhythm Capillary refill: <2 Seconds Gastrointestinal: Normal bowel sounds, Soft and benign, W/out succussion splash Musculoskeletal: Other (diffuse muscle wasting ) Integumentary: Other (sacral stage 4 wound-base of wound shows 100% granulation tissue ) Urinary: Bladder distention, Baltazar catheter - Studies Laboratory Last Values WBC 5.30 K/uL (4.3-10.9) 11/27/20 21:00 RBC 2.85 M/uL (4.33-5.43) L 11/27/20 21:00 Hgb 8.8 g/dL (13.6-17.9) L 11/27/20 21:00 Hct 25.7 % (39.6-49.0) L 11/27/20 21:00 MCV 90.3 fL (80-100) D 11/27/20 21:00 MCH 30.8 pg (27.0-35.0) 11/27/20 21:00 MCHC 34.1 g/dL (32.0-36.0) 11/27/20 21:00 RDW 19.8 % (12.1-15.2) H 11/27/20 21:00 Plt Count 377 K/uL (152-406) 11/27/20 21:00 MPV 8.2 fL (7.6-11.3) 11/27/20 21:00 Neutrophils % 59.2 % (41.7-73.7) 11/27/20 21:00 Lymphocytes % 29.0 % (15.3-44.8) 11/27/20 21:00 Monocytes % 11.4 % (3.3-12.3) 11/27/20 21:00 Eosinophils % 0.2 % (0-4.4) 11/27/20 21:00 Basophils % 0.2 % (0-1.3) 11/27/20 21:00 Absolute Neutrophils 3.1 K/uL (1.8-8.0) 11/27/20 21:00 Absolute Lymphocytes 1.5 K/uL (0.7-4.9) 11/27/20 21:00 Absolute Monocytes 0.6 K/uL (0.1-1.3) 11/27/20 21:00 Absolute Eosinophils 0.0 K/uL (0-0.5) 11/27/20 21:00 Absolute Basophils 0.0 K/uL (0-0.5) 11/27/20 21:00 PT 11.8 SECONDS (9.5-12.5) 11/27/20 21:00 INR 1.03 11/27/20 21:00 Sodium 141 mmol/L (136-145) 11/27/20 21:00 Potassium 4.5 mmol/L (3.5-5.1) 11/27/20 21:00 Chloride 106 mmol/L (98-107) 11/27/20 21:00 Carbon Dioxide 33 mmol/L (21-32) H 11/27/20 21:00 BUN 8 mg/dL (7-18) 11/27/20 21:00 Creatinine < 0.15 mg/dL (0.55-1.3) L 11/27/20 21:00 Estimated GFR > 90 mL/min (=/>90) 11/27/20 21:00 Glucose 86 mg/dL (74-106) 11/27/20 21:00 Lactic Acid 1.7 mmol/L (0.4-2.0) 11/27/20 21:00 Calcium 7.5 mg/dL (8.5-10.1) L 11/27/20 21:00 Magnesium 2.1 mg/dL (1.8-2.4) 11/27/20 21:00 Total Bilirubin 0.2 mg/dL (0.2-1.0) 11/27/20 21:00 Direct Bilirubin < 0.1 mg/dL (0-0.2) 11/27/20 21:00 AST 19 U/L (15-37) 11/27/20 21:00 ALT 21 U/L (12-78) 11/27/20 21:00 Alkaline Phosphatase 120 U/L (45-117) H 11/27/20 21:00 Rapid Troponin I < 0.02 ng/mL (0.0-0.045) 11/27/20 21:00 NT-Pro-B Natriuret Pep 196 pg/mL (<125) H 11/27/20 21:00 Serum Total Protein 5.6 g/dL (6.4-8.2) L 11/27/20 21:00 Albumin 1.4 g/dL (3.4-5.0) L 11/27/20 21:00 Globulin 4.2 g/dL (2.3-3.5) H 11/27/20 21:00 Albumin/Globulin Ratio 0.3 (1.1-1.8) L 11/27/20 21:00 SARS-CoV-2 RNA (RT-PCR) Negative (NEGATIVE) 11/27/20 22:24 ABO/Rh AB POSITIVE 11/27/20 21:00 Solid Phase Ab Screen Negative 11/27/20 21:00 Medications List Reviewed: Yes Assessment And Plan - Plan Assessment 1.Sacral coccyx stage IV wound. 2.Severe malnourishment. 3.Diabetes mellitus 4. anemia of chronic disease associated with malnourishment. . Plan: 1. Continue wound vac [address] pelvis has been order to r/u osteo. 2. Continue nutrition as the patient needed for healing of his wounds. 3. medical management per primary team. -We will continue to monitor CBC-BMP, monitor for signs of infection. Patient is currently not on any antibiotics. We will follow closely Plan of care discussed with Dr. Sosa. Thank you Dr. Hernández for consult.
--- NOTE | 2020-12-02 16:34 | RAD REPORT ---
EXAM DESCRIPTION: CT - Abdomen Pelvis Wo Contrast - 12/02/2020 3:10 pm CLINICAL HISTORY: concern for osteomylitis , pelvic pain, sacral decubitus ulcer COMPARISON: Abdomen Pelvis Wo Contrast dated 10/05/2020 TECHNIQUE: Axial [address] imaging of the abdomen and pelvis was performed without IV contrast. No IV contrast was given because of allergy, abnormal renal function, patient refusal or physician re quest. Patient was imaged in a right lateral decubitus position No oral contrast administered. All CT scans are performed using dose optimization technique as appropriate and may include automated exposure control or mA/KV adjustment according to patient size. FINDINGS: No dense mass or consolidation. Atelectasis changes are present in the right lung field. N o pneumothorax or pleural effusion. No cardiomegaly or pericardial effusion. Dilated viscus in the midline chest is probably a large food containing hiatal hernia. This is probab ly a 50% of the gastric volume. A dilated esophagus is possible. Finding is similar to September 2020. PEG tube is present in midline upper abdomen new from the September 2020 study. Liver and spleen show no suspicious findings on noncontrast imaging. No biliary tree dilatation. Gall bladder is contracted limiting assessment. Pancreas is poorly demarcated being isodense to the unopac ified bowel. Pattern is similar to September 2020. No hydronephrosis or suspicious renal mass. No significant adrenal finding. Isodense renal masses an d pyelonephritis cannot be excluded in the absence of IV contrast. Urinary bladder is contracted arou nd a Baltazar catheter. Rectum is dilated by large amount of stool some air. Transverse diameter is 7.4 cm. There is a large amount of stool distending the tortuous sigmoid colon. Overall there is a large stool volume in the e ntire colon. Small bowel loops do not appear dilated. The edematous appearance to the peritoneal fat creates an isodense [place] to the intraperitoneal structures resulting in very poor tissue plane separa tion of all these structures. This is similar to September 2020 imaging. No convincing evidence for fr ee air. No pneumatosis seen. No bulky lymphadenopathy. Soft tissue wound is present posterior midline at the sacrum coccygeal junction. No air in the soft t issues. No bone destruction identifiable. Osteomyelitis can be present prior to bone destruction. IMPRESSION: Sacral decubitus ulcer is present without bone destruction identifiable. Osteomyelitis c an exist prior to bone destruction. At the site of the decubitus ulcer other common no air or foreign body in the soft tissues. Large amount of stool dilating the rectum and distending the sigmoid colon. There is an overall large stool volume filling the colon. Peritoneal and retroperitoneal assessment is limited. The absence of oral and IV contrast combined wi th peritoneal and retroperitoneal fatty edema creates an isodensity to all of the structures. The above detailed findings are not substantially different from September 2020. Full assessment is limited is the absence of IV contrast.
[2020-12-03] MEDS: LORazepam 2 MG/ML VIAL IV PRN (00:27)
[2020-12-03] MEDS: HYDROCOD 2.5mg-ACETAMIN 108mg/5mL Soln FT PRN (03:22)
[2020-12-03] MEDS: NA CHLORIDE 0.9% 1,000 ML IV SCH ×2 (03:38→18:23)
[2020-12-03 06:24] LABS: Absolute Lymphocytes (CBC) 1.9 K/uL (0.7-4.9); Basophils % 0.4 % (0-1.3); Hematocrit 30.5 % (39.6-49.0); Lymphocytes % 22.1 % (15.3-44.8); RBC Red Blood Cell Count 3.26 M/uL (4.33-5.43)
[2020-12-03 07:23] LABS: Protime INR 1.06
[2020-12-03 07:56] LABS: ALT/SGPT 19 U/L (12-78); AST/SGOT 16 U/L (15-37); Albumin 1.5 g/dL (3.4-5.0); Alkaline Phosphatase 112 U/L (45-117); BUN Blood Urea Nitrogen 10 mg/dL (7-18); Bicarbonate 30 mmol/L (21-32); Bilirubin Total 0.2 mg/dL (0.2-1.0); Glucose Level 83 mg/dL (74-106); Magnesium 1.8 mg/dL (1.8-2.4); Potassium 4.2 mmol/L (3.5-5.1); Protein, Total 6.1 g/dL (6.4-8.2); Sodium Level 139 mmol/L (136-145)
[2020-12-03] MEDS: FOLIC ACID 1 MG TABLET FT SCH (09:00)
[2020-12-03] MEDS ORDERED: FENTANYL CITR 100 MCG/2 ML IV ONE (09:00)
[2020-12-03] MEDS: HALOPERIDOL LACT 5 MG/ML INJ IV PRN ×2 (09:46→12:12)
[2020-12-03] MEDS: SOD FERRIC GLUC COMPLX/SUCROSE 125 MG in NA CHLORIDE 0.9% 100 ML IV SCH (10:24)
[2020-12-03] MEDS: VENLAFAXINE HCL 37.5 MG TAB PO SCH (10:25)
[2020-12-03] MEDS: GABAPENTIN 100 MG CAP FT SCH ×3 (10:25→21:14)
[2020-12-03] MEDS: MULTIVITAMINS 5 ML ORAL SYR FT SCH (10:25)
[2020-12-03] MEDS: THIAMINE HCL 100 MG TABLET FT SCH (10:26)
[2020-12-03] MEDS: RISPERIDONE 1 MG TABLET FT SCH ×2 (10:26→21:15)
[2020-12-03] MEDS: GLUCERNA 1.5 CAL 1,000 ML BOT RTH SCH (10:27)
--- NOTE | 2020-12-03 15:54 | P.PN ---
Subjective Date of Service: 12/03/20 Primary Care Provider: none Chief Complaint: Debility, achalasia, sacral decubitus Patient seen and examined at bedside. Per nurse the patient has been slightly more altered today. He ripped out his PICC line and removed the wound VAC that was on his sacral wound. Due to this, wound VAC has been DC, wound care is now medihoney alginate, cover with foam. Review of Systems 10-point ROS is otherwise unremarkable Physical Examination - Vital Signs Temperature: 97.3 F Blood Pressure: 89/58 Pulse: 109 Respirations: 14 Pulse Ox (%): 100 - Physical Exam Other Physical/Emotional Findings: General: Alert, In no apparent distress, Cachectic, Other (severe malnutrition ). HEENT: Atraumatic, Normocephalic, PERRLA. Neck: Supple, 2+ carotid pulse no bruit, JVD not distended, No Thyromegaly. Respiratory: Clear to auscultation bilaterally, Normal air movement. Cardiovascular: No edema, Normal pulses, Regular rate/rhythm. Capillary refill: <2 Seconds. Gastrointestinal: Normal bowel sounds, Soft and benign, W/out succussion splash. Musculoskeletal: Other (diffuse muscle wasting ). Integumentary: Other (sacral stage 4 wound-base of wound shows 100% granulation tissue ). Urinary: Baltazar catheter - Studies Medications List Reviewed: Yes Assessment And Plan - Plan Assessment 1.Sacral coccyx stage IV wound. 2.Severe malnourished. 3.Diabetes mellitus 4. anemia of chronic disease associated with malnourished. . Plan: 1. medihoney, silver alginate, cover with foam qMWF. CT Pelvis could not rule out osteomyelitis-vancomycin 1g q12hr has been started. Will monitor renal function closely. Dose adjusted via pharmacy. 2. Continue nutrition as the patient needed for healing of his wounds. 3. medical management per primary team. -We will continue to monitor CBC-BMP, monitor for signs of infection. We will follow closely Plan of care discussed with Dr. Sosa. Thank you Dr. Hernández for consult.
[2020-12-03] MEDS ORDERED: VANCOMYCIN/NS 1 gm 1 GM/250 ML BAG IVPB ONE (16:00)
[2020-12-03] MEDS: MEDIHONEY 44 ML TOPICAL TUBE TOP SCH (18:23)
[2020-12-03] MEDS: MIRTAZAPINE 15 MG TAB PO SCH (21:14)
[2020-12-04] MEDS: ACETAMINOPHEN 500 MG TAB FT PRN (03:14)
[2020-12-04] MEDS: VANCOMYCIN/NS 1 gm 1 GM/250 ML BAG IV SCH ×2 (03:14→15:41)
[2020-12-04] MEDS: HALOPERIDOL LACT 5 MG/ML INJ IV PRN (04:40)
[2020-12-04 06:31] LABS: BUN Blood Urea Nitrogen 9 mg/dL (7-18); Bicarbonate 31 mmol/L (21-32); Glucose Level 78 mg/dL (74-106); Magnesium 1.9 mg/dL (1.8-2.4); Potassium 3.8 mmol/L (3.5-5.1); Sodium Level 141 mmol/L (136-145)
[2020-12-04] MEDS: FOLIC ACID 1 MG TABLET FT SCH (08:40)
[2020-12-04] MEDS: HYDROCOD 2.5mg-ACETAMIN 108mg/5mL Soln FT PRN ×3 (08:40→21:38)
[2020-12-04] MEDS: RISPERIDONE 1 MG TABLET FT SCH ×2 (08:40→21:40)
[2020-12-04] MEDS: GABAPENTIN 100 MG CAP FT SCH ×3 (08:40→21:39)
[2020-12-04] MEDS ORDERED: POTASSIUM 25 MEQ EFFERV TAB FT ONE (09:00)
[2020-12-04] MEDS: MEDIHONEY 44 ML TOPICAL TUBE TOP SCH (09:00)
[2020-12-04] MEDS: VENLAFAXINE HCL 37.5 MG TAB PO SCH (09:42)
[2020-12-04] MEDS: MULTIVITAMINS 5 ML ORAL SYR FT SCH (09:42)
[2020-12-04] MEDS: THIAMINE HCL 100 MG TABLET FT SCH (09:42)
--- NOTE | 2020-12-04 10:54 | P.PN ---
Subjective Date of Service: 12/04/20 Primary Care Provider: none Chief Complaint: Debility, achalasia, sacral decubitus Patient seen and examined at bedside. No acute complaints at this time, tolerating antibiotics well. Review of Systems 10-point ROS is otherwise unremarkable Physical Examination - Vital Signs Temperature: 98.1 F Blood Pressure: 103/63 Pulse: 66 Respirations: 18 Pulse Ox (%): 100 - Physical Exam Other Physical/Emotional Findings: General: Alert, In no apparent distress, Cachectic, Other (severe malnutrition ). HEENT: Atraumatic, Normocephalic, PERRLA. Neck: Supple, 2+ carotid pulse no bruit, JVD not distended, No Thyromegaly. Respiratory: Clear to auscultation bilaterally, Normal air movement. Cardiovascular: No edema, Normal pulses, Regular rate/rhythm. Capillary refill: <2 Seconds. Gastrointestinal: Normal bowel sounds, Soft and benign, W/out succussion splash. Musculoskeletal: Other (diffuse muscle wasting ). Integumentary: Other (sacral stage 4 wound-base of wound shows 100% granulation tissue ). Urinary: Baltazar catheter - Studies Medications List Reviewed: Yes Assessment And Plan - Plan Assessment 1.Sacral coccyx stage IV wound. 2.Severe malnourished. 3.Diabetes mellitus 4. anemia of chronic disease associated with malnourished. . Plan: 1. medihoney, silver alginate, cover with foam qMWF. CT Pelvis could not rule out osteomyelitis-vancomycin 1g q12hr has been started. Will monitor renal function closely. Dose adjusted via pharmacy. 2. Continue nutrition as the patient needed for healing of his wounds. 3. medical management per primary team. -We will continue to monitor CBC-BMP, monitor for signs of infection. We will follow closely Plan of care discussed with Dr. Sosa. Thank you Dr. Hernández for consult.
[2020-12-04] MEDS: ONDANSETRON 4 MG/2 ML VIAL IV PRN ×2 (12:07→17:48)
[2020-12-04] MEDS: GLUCERNA 1.2 CAL 1,000 ML BOT FT SCH ×3 (12:54→21:40)
[2020-12-04] MEDS: NA CHLORIDE 0.9% 1,000 ML IV SCH (18:00)
[2020-12-04] MEDS: MIRTAZAPINE 15 MG TAB PO SCH (21:39)
[2020-12-05] MEDS: NA CHLORIDE 0.9% 1,000 ML IV SCH ×2 (02:19→14:00)
[2020-12-05] MEDS: HYDROCOD 2.5mg-ACETAMIN 108mg/5mL Soln FT PRN ×3 (03:51→23:06)
[2020-12-05 04:29] LABS: BUN Blood Urea Nitrogen 8 mg/dL (7-18); Bicarbonate 33 mmol/L (21-32); Glucose Level 71 mg/dL (74-106); Potassium 3.8 mmol/L (3.5-5.1); Sodium Level 142 mmol/L (136-145)
[2020-12-05] MEDS: VANCOMYCIN/NS 1 gm 1 GM/250 ML BAG IV SCH ×2 (04:47→15:39)
[2020-12-05] MEDS: GABAPENTIN 100 MG CAP FT SCH ×3 (09:00→21:00)
[2020-12-05] MEDS: VENLAFAXINE HCL 37.5 MG TAB PO SCH (09:00)
[2020-12-05] MEDS: GLUCERNA 1.2 CAL 1,000 ML BOT FT SCH ×4 (09:00→21:10)
[2020-12-05] MEDS: FOLIC ACID 1 MG TABLET FT SCH (09:00)
[2020-12-05] MEDS: THIAMINE HCL 100 MG TABLET FT SCH (09:00)
[2020-12-05] MEDS ORDERED: POTASSIUM 25 MEQ EFFERV TAB FT ONE (09:00)
[2020-12-05] MEDS: MEDIHONEY 44 ML TOPICAL TUBE TOP SCH (09:00)
[2020-12-05] MEDS: MULTIVITAMINS 5 ML ORAL SYR FT SCH (09:00)
[2020-12-05] MEDS: RISPERIDONE 1 MG TABLET FT SCH ×2 (09:00→21:08)
[2020-12-05] MEDS: HALOPERIDOL LACT 5 MG/ML INJ IV PRN ×2 (09:37→21:05)
--- NOTE | 2020-12-05 10:34 | P.PN ---
Subjective Date of Service: 12/05/20 Primary Care Provider: none Chief Complaint: Debility, achalasia, sacral decubitus Patient seen and examined at bedside. No acute complaints at this time. Had an episode of vomiting this morning. Review of Systems 10-point ROS is otherwise unremarkable Physical Examination - Vital Signs Temperature: 96.8 F Blood Pressure: 106/78 Pulse: 101 Respirations: 18 Pulse Ox (%): 95 - Physical Exam Other Physical/Emotional Findings: General: Alert, In no apparent distress, Cachectic, Other (severe malnutrition ). HEENT: Atraumatic, Normocephalic, PERRLA. Neck: Supple, 2+ carotid pulse no bruit, JVD not distended, No Thyromegaly. Respiratory: Clear to auscultation bilaterally, Normal air movement. Cardiovascular: No edema, Normal pulses, Regular rate/rhythm. Capillary refill: <2 Seconds. Gastrointestinal: Normal bowel sounds, Soft and benign, W/out succussion splash. Musculoskeletal: Other (diffuse muscle wasting ). Integumentary: Other (sacral stage 4 wound-base of wound shows 100% granulation tissue ). Urinary: Baltazar catheter - Studies Medications List Reviewed: Yes Assessment And Plan - Plan Assessment 1.Sacral coccyx stage IV wound. 2.Severe malnourished. 3.Diabetes mellitus 4. anemia of chronic disease associated with malnourished. . Plan: 1. medihoney, silver alginate, cover with foam qMWF. CT Pelvis could not rule out osteomyelitis-vancomycin 1g q12hr has been started. Will monitor renal function closely. Dose adjusted via pharmacy. 2. Continue nutrition as the patient needed for healing of his wounds. 3. medical management per primary team. -We will continue to monitor CBC-BMP, monitor for signs of infection. We will follow closely Plan of care discussed with Dr. Sosa. Thank you Dr. Hernández for consult.
[2020-12-05] MEDS: ONDANSETRON 4 MG/2 ML VIAL IV PRN (19:08)
[2020-12-05] MEDS: MIRTAZAPINE 15 MG TAB PO SCH (21:08)
[2020-12-06] MEDS: VANCOMYCIN/NS 1 gm 1 GM/250 ML BAG IV SCH ×2 (04:13→16:00)
[2020-12-06 05:13] LABS: BUN Blood Urea Nitrogen 8 mg/dL (7-18); Bicarbonate 31 mmol/L (21-32); Glucose Level 80 mg/dL (74-106); Potassium 4.7 mmol/L (3.5-5.1); Sodium Level 143 mmol/L (136-145)
[2020-12-06] MEDS: HYDROCOD 2.5mg-ACETAMIN 108mg/5mL Soln FT PRN ×3 (05:13→18:52)
[2020-12-06] MEDS: HALOPERIDOL LACT 5 MG/ML INJ IV PRN (08:52)
[2020-12-06] MEDS: VENLAFAXINE HCL 37.5 MG TAB PO SCH (08:53)
[2020-12-06] MEDS: MULTIVITAMINS 5 ML ORAL SYR FT SCH (08:53)
[2020-12-06] MEDS: RISPERIDONE 1 MG TABLET FT SCH ×2 (08:53→21:38)
[2020-12-06] MEDS: GABAPENTIN 100 MG CAP FT SCH ×3 (08:53→21:38)
[2020-12-06] MEDS: FOLIC ACID 1 MG TABLET FT SCH (08:54)
[2020-12-06] MEDS: THIAMINE HCL 100 MG TABLET FT SCH (08:54)
[2020-12-06] MEDS: GLUCERNA 1.2 CAL 1,000 ML BOT FT SCH ×4 (08:54→21:38)
[2020-12-06] MEDS: MEDIHONEY 44 ML TOPICAL TUBE TOP SCH (08:55)
[2020-12-06] MEDS: NA CHLORIDE 0.9% 1,000 ML IV SCH (09:00)
[2020-12-06] MEDS: ONDANSETRON 4 MG/2 ML VIAL IV PRN ×2 (09:54→16:12)
[2020-12-06] MEDS: MIRTAZAPINE 15 MG TAB PO SCH (21:37)
[2020-12-07] MEDS: HALOPERIDOL LACT 5 MG/ML INJ IV PRN ×3 (00:20→12:26)
[2020-12-07] MEDS: HYDROCOD 2.5mg-ACETAMIN 108mg/5mL Soln FT PRN ×4 (03:00→22:25)
[2020-12-07] MEDS: VANCOMYCIN/NS 1 gm 1 GM/250 ML BAG IV SCH (04:00)
[2020-12-07] MEDS ORDERED: NA CHLORIDE 0.9% 250 ML ONE (04:41)
[2020-12-07] MEDS ORDERED: VANCOMYCIN 1 GM/VIAL ONE (04:43)
[2020-12-07] MEDS ORDERED: VANCOMYCIN 750 MG in NA CHLORIDE 0.9% 150 ML IVPB SCH (05:00)
[2020-12-07] MEDS: NA CHLORIDE 0.9% 1,000 ML IV SCH ×2 (06:02→20:59)
[2020-12-07] MEDS: GABAPENTIN 100 MG CAP FT SCH ×3 (08:39→20:50)
[2020-12-07] MEDS: RISPERIDONE 1 MG TABLET FT SCH ×2 (08:39→20:50)
[2020-12-07] MEDS: MULTIVITAMINS 5 ML ORAL SYR FT SCH (08:39)
[2020-12-07] MEDS: VENLAFAXINE HCL 37.5 MG TAB PO SCH (08:39)
[2020-12-07] MEDS: FOLIC ACID 1 MG TABLET FT SCH (08:39)
[2020-12-07] MEDS: THIAMINE HCL 100 MG TABLET FT SCH (08:39)
[2020-12-07] MEDS: MEDIHONEY 44 ML TOPICAL TUBE TOP SCH (08:40)
[2020-12-07] MEDS: ONDANSETRON 4 MG/2 ML VIAL IV PRN (09:11)
[2020-12-07] MEDS: GLUCERNA 1.2 CAL 1,000 ML BOT FT SCH ×4 (09:33→20:50)
[2020-12-07] MEDS: VANCOMYCIN 750 MG in NA CHLORIDE 0.9% 250 ML IVPB SCH (17:05)
[2020-12-07] MEDS: MIRTAZAPINE 15 MG TAB PO SCH (20:50)
--- NOTE | 2020-12-08 03:35 | P.PN ---
Date of Service: 12/03/20 Subjective Continue with antipsychotics. Continue wound care. Continue to feedings. Awaiting placement Review of Systems 10-point ROS is otherwise unremarkable Physical Examination - Vital Signs Reviewed - Physical Exam General: Alert, In no apparent distress, Oriented x3; occasionally screams Respiratory: Clear to auscultation bilaterally, Normal air movement Cardiovascular: Regular rate/rhythm, Normal S1 S2, No murmurs Gastrointestinal: Normal bowel sounds, Soft and benign, Non-distended, No tenderness Musculoskeletal: No clubbing, No swelling, No tenderness Assessment & Plan - Problems (Diagnosis) (1) Malnutrition Current Visit: Yes Status: Acute (2) S/P percutaneous endoscopic gastrostomy (PEG) tube placement Current Visit: Yes Status: Acute (3) Sacral decubitus ulcer, stage IV Current Visit: Yes Status: Acute (4) Achalasia Current Visit: Yes Status: Acute (5) Bipolar 1 disorder Current Visit: Yes Status: Acute (6) Schizophrenia Current Visit: Yes Status: Acute - Plan 1. Continue with IV antibiotics 2. Continue with local wound care 3. Wound care consultation/surgical consultation appreciated 4. Continue IV hydration/diet as tolerated 5. We need to monitor labs and electrolytes 6. Protein supplementation T.i.d. 7. Pain control 8. Awaiting placement 9. GI and DVT prophylaxis
--- NOTE | 2020-12-08 03:41 | P.PN ---
Date of Service: 12/04/20 Subjective Patient is doing well. Patient with no new complaints. Still screams out occasionally and occasionally he gets very difficult to handle with nurses Review of Systems 10-point ROS is otherwise unremarkable Physical Examination - Vital Signs Reviewed - Physical Exam General: Alert, In no apparent distress, Oriented x3; occasionally screams Respiratory: Diminished but clear Cardiovascular: Regular rate/rhythm, Normal S1 S2, No murmurs Gastrointestinal: Normal bowel sounds, Soft and benign, Non-distended, No tenderness; PEG tube in place Musculoskeletal: No clubbing, No swelling, No tenderness; cachexia Assessment & Plan - Problems (Diagnosis) (1) Malnutrition Current Visit: Yes Status: Acute (2) S/P percutaneous endoscopic gastrostomy (PEG) tube placement Current Visit: Yes Status: Acute (3) Sacral decubitus ulcer, stage IV Current Visit: Yes Status: Acute (4) Achalasia Current Visit: Yes Status: Acute (5) Bipolar 1 disorder Current Visit: Yes Status: Acute (6) Schizophrenia Current Visit: Yes Status: Acute - Plan Continue with plan of care as mentioned below 1. Continue with IV antibiotics 2. Continue with local wound care 3. Wound care consultation/surgical consultation appreciated 4. Continue IV hydration/diet as tolerated 5. We need to monitor labs and electrolytes 6. Protein supplementation T.i.d. 7. Pain control 8. Awaiting placement 9. GI and DVT prophylaxis
--- NOTE | 2020-12-08 03:44 | P.PN ---
Date of Service: 12/05/20 Subjective Patient doing better on antipsychotics. Awaiting for placement Review of Systems 10-point ROS is otherwise unremarkable Physical Examination - Vital Signs Reviewed - Physical Exam General: Alert, In no apparent distress, Oriented x3; occasionally screams Respiratory: Diminished but clear Cardiovascular: Regular rate/rhythm, Normal S1 S2, No murmurs Gastrointestinal: Normal bowel sounds, Soft and benign, Non-distended, No tenderness; PEG tube in place Musculoskeletal: No clubbing, No swelling, No tenderness; cachexia Assessment & Plan - Problems (Diagnosis) (1) Malnutrition Current Visit: Yes Status: Acute (2) S/P percutaneous endoscopic gastrostomy (PEG) tube placement Current Visit: Yes Status: Acute (3) Sacral decubitus ulcer, stage IV Current Visit: Yes Status: Acute (4) Achalasia Current Visit: Yes Status: Acute (5) Bipolar 1 disorder Current Visit: Yes Status: Acute (6) Schizophrenia Current Visit: Yes Status: Acute - Plan Continue with plan of care as mentioned below 1. Continue with IV antibiotics & local wound care 2. Heplock IV 3. We need to monitor labs and electrolytes 4. Protein supplementation T.i.d. 5. Pain control 6. Awaiting placement 7. GI and DVT prophylaxis
--- NOTE | 2020-12-08 03:46 | P.PN ---
Date of Service: 12/06/20 Subjective Patient continues to improve with no new complaints. Increase oral intake & also may need to increase protein supplementation Review of Systems 10-point ROS is otherwise unremarkable Physical Examination - Vital Signs Reviewed - Physical Exam General: Alert, In no apparent distress, Oriented x3; Respiratory: Diminished but clear Cardiovascular: Regular rate/rhythm, Normal S1 S2, No murmurs Gastrointestinal: Normal bowel sounds, Soft and benign, Non-distended, No tenderness; PEG tube in place Musculoskeletal: No clubbing, No swelling, No tenderness; cachectic Assessment & Plan - Problems (Diagnosis) (1) Malnutrition Current Visit: Yes Status: Acute (2) S/P percutaneous endoscopic gastrostomy (PEG) tube placement Current Visit: Yes Status: Acute (3) Sacral decubitus ulcer, stage IV Current Visit: Yes Status: Acute (4) Achalasia Current Visit: Yes Status: Acute (5) Bipolar 1 disorder Current Visit: Yes Status: Acute (6) Schizophrenia Current Visit: Yes Status: Acute - Plan Continue with plan of care as mentioned below 1. Continue with IV antibiotics & local wound care 2. Heplock IV 3. We need to continue to monitor labs and electrolytes Every 72 hours while in hospital setting 4. Protein supplementation T.i.d. 5. Pain control 6. Awaiting placement 7. GI and DVT prophylaxis
[2020-12-08] MEDS: VANCOMYCIN 750 MG in NA CHLORIDE 0.9% 250 ML IVPB SCH ×2 (05:09→17:58)
[2020-12-08] MEDS: HALOPERIDOL LACT 5 MG/ML INJ IV PRN ×4 (05:21→23:13)
[2020-12-08 07:35] LABS: ALT/SGPT 15 U/L (12-78); AST/SGOT 26 U/L (15-37); Albumin 1.9 g/dL (3.4-5.0); Alkaline Phosphatase 108 U/L (45-117); BUN Blood Urea Nitrogen 7 mg/dL (7-18); Bicarbonate 28 mmol/L (21-32); Bilirubin Total 0.3 mg/dL (0.2-1.0); Glucose Level 73 mg/dL (74-106); Magnesium 2.1 mg/dL (1.8-2.4); Phosphorus 3.4 mg/dL (2.5-4.9); Potassium 4.7 mmol/L (3.5-5.1); Protein, Total 6.9 g/dL (6.4-8.2); Sodium Level 141 mmol/L (136-145)
[2020-12-08 07:47] LABS: Absolute Lymphocytes (CBC) 2.4 K/uL (0.7-4.9); Basophils % 0.2 % (0-1.3); Hematocrit 36.8 % (39.6-49.0); Lymphocytes % 25.2 % (15.3-44.8); MPV 9.3 fL (7.6-11.3); RBC Red Blood Cell Count 3.88 M/uL (4.33-5.43)
[2020-12-08] MEDS: HYDROCOD 2.5mg-ACETAMIN 108mg/5mL Soln FT PRN ×3 (08:39→19:51)
[2020-12-08] MEDS: RISPERIDONE 1 MG TABLET FT SCH ×2 (08:40→19:45)
[2020-12-08] MEDS: VENLAFAXINE HCL 37.5 MG TAB PO SCH (08:40)
[2020-12-08] MEDS: FOLIC ACID 1 MG TABLET FT SCH (08:40)
[2020-12-08] MEDS: MULTIVITAMINS 5 ML ORAL SYR FT SCH (08:40)
[2020-12-08] MEDS: MEDIHONEY 44 ML TOPICAL TUBE TOP SCH (08:40)
[2020-12-08] MEDS: GABAPENTIN 100 MG CAP FT SCH ×3 (08:40→19:44)
[2020-12-08] MEDS: THIAMINE HCL 100 MG TABLET FT SCH (08:41)
[2020-12-08] MEDS: GLUCERNA 1.2 CAL 1,000 ML BOT FT SCH ×4 (08:41→19:45)
[2020-12-08] MEDS: ONDANSETRON 4 MG/2 ML VIAL IV PRN ×3 (08:51→19:51)
--- NOTE | 2020-12-08 12:24 | P.PN ---
Subjective Date of Service: 12/08/20 Primary Care Provider: none Chief Complaint: Debility, achalasia, sacral decubitus Subjective: Doing well Physical Examination - Vital Signs Temperature: 97.3 F Blood Pressure: 119/82 Pulse: 92 Respirations: 18 Pulse Ox (%): 96 - Physical Exam Other Physical/Emotional Findings: General: Alert, In no apparent distress, Cachectic, Other (severe malnutrition ). HEENT: Atraumatic, Normocephalic, PERRLA. Neck: Supple, 2+ carotid pulse no bruit, JVD not distended, No Thyromegaly. Respiratory: Clear to auscultation bilaterally, Normal air movement. Cardiovascular: No edema, Normal pulses, Regular rate/rhythm. Capillary refill: <2 Seconds. Gastrointestinal: Normal bowel sounds, Soft and benign, W/out succussion splash. Musculoskeletal: Other (diffuse muscle wasting ). Integumentary: Other (sacral stage 4 wound-base of wound shows 100% granulation tissue ). Urinary: Baltazar catheter - Studies Medications List Reviewed: Yes Assessment & Plan Discharge Plan: Other (Long-term placement facility) Plan to discharge in: Greater than 2 days Physician Review Additional Text: Initial chief complaint: Severe malnutrition with poor social situation at home. Not able to take care of himself. Recently discharged from [facility] Physical exam: Patient alert, cooperative. Patient more alert and cooperative. Increase anxiety noted. Patient appears very cachectic. Patient not well kept. Severely malnourished appearance. Heart: Regular rate rhythm Lungs: Clear to auscultation GI: Soft nontender. Peg tube in place. Extremities: Muscle wasting throughout. Nurses report left large hip stage 3-4 decubitus ulcer. Psych: Increased anxiety noted. No significant distress noted. Impression: Debility, severe malnutrition secondary to achalasia now with PEG tube Large left hip decubitus stage 3-4 ulcer History of Diabetes mellitus type 2 Bipolar disorder/schizophrenia Anemia of chronic disease Plan Debility, severe malnutrition secondary to achalasia now with PEG tube: Continue PEG tube feeds. Patient also on full liquids. Will consider discontinuing IV fluids. No straws. Social work working to transfer patient to a long-term care facility or the patient can stay. Spoke with social security benefits interviewer today. This maybe at long process since it will be social security disability related. Will continue to work with family to help arrange. Large left hip decubitus stage 4: Wound healing consult in place. Infectious Disease also consulted to address wound. Continue with wet-to-dry dressing at this time. History of Diabetes mellitus type 2: Doubt diabetes at this time. Blood sugars controlled. Will need to monitor for hypoglycemia. Continue Accu-Cheks. Sliding scale in place.. Bipolar disorder/schizophrenia: Continue current medication. Psych was consulted last week. Effexor added. Anemia of chronic disease: Stable. Continue with supplementation. Time Spent Managing Pts Care (In Minutes): 55
[2020-12-08] MEDS: MIRTAZAPINE 15 MG TAB PO SCH (19:45)
[2020-12-09] MEDS: HYDROCOD 2.5mg-ACETAMIN 108mg/5mL Soln FT PRN ×4 (04:00→20:16)
[2020-12-09] MEDS: VANCOMYCIN 750 MG in NA CHLORIDE 0.9% 250 ML IVPB SCH ×2 (05:54→18:24)
[2020-12-09] MEDS: HALOPERIDOL LACT 5 MG/ML INJ IV PRN ×3 (06:44→18:25)
[2020-12-09] MEDS: ONDANSETRON 4 MG/2 ML VIAL IV PRN (08:15)
[2020-12-09] MEDS: MEDIHONEY 44 ML TOPICAL TUBE TOP SCH (09:00)
[2020-12-09] MEDS: GABAPENTIN 100 MG CAP FT SCH ×3 (09:29→20:17)
[2020-12-09] MEDS: VENLAFAXINE HCL 37.5 MG TAB PO SCH (09:29)
[2020-12-09] MEDS: RISPERIDONE 1 MG TABLET FT SCH ×2 (09:29→20:17)
[2020-12-09] MEDS: FOLIC ACID 1 MG TABLET FT SCH (09:29)
[2020-12-09] MEDS: THIAMINE HCL 100 MG TABLET FT SCH (09:29)
[2020-12-09] MEDS: MULTIVITAMINS 5 ML ORAL SYR FT SCH (09:29)
[2020-12-09] MEDS: GLUCERNA 1.2 CAL 1,000 ML BOT FT SCH ×4 (09:40→21:00)
--- NOTE | 2020-12-09 14:14 | P.PN ---
Subjective Date of Service: 12/09/20 Primary Care Provider: none Chief Complaint: Debility, achalasia, sacral decubitus Subjective: Doing well (No complaints noted) Physical Examination - Vital Signs Temperature: 98.1 F Blood Pressure: 83/57 Pulse: 108 Respirations: 20 Pulse Ox (%): 100 - Physical Exam Other Physical/Emotional Findings: General: Alert, In no apparent distress, Cachectic, Other (severe malnutrition ). HEENT: Atraumatic, Normocephalic, PERRLA. Neck: Supple, 2+ carotid pulse no bruit, JVD not distended, No Thyromegaly. Respiratory: Clear to auscultation bilaterally, Normal air movement. Cardiovascular: No edema, Normal pulses, Regular rate/rhythm. Capillary refill: <2 Seconds. Gastrointestinal: Normal bowel sounds, Soft and benign, W/out succussion splash. Musculoskeletal: Other (diffuse muscle wasting ). Integumentary: Other (sacral stage 4 wound-base of wound shows 100% granulation tissue ). Urinary: Baltazar catheter - Studies Medications List Reviewed: Yes Assessment & Plan Discharge Plan: Other (Long-term care facility) Physician Review Additional Text: Initial chief complaint: Severe malnutrition with poor social situation at home. Not able to take care of himself. Recently discharged from [facility] Physical exam: Patient alert, cooperative. Patient more alert and cooperative. Anxiety appears controlled. Patient appears very cachectic. Patient not well kept. Severely malnourished appearance. Heart: Regular rate rhythm Lungs: Clear to auscultation GI: Soft nontender. Peg tube in place. Extremities: Muscle wasting throughout. Nurses report left large hip stage 3-4 decubitus ulcer. Psych: Increased anxiety noted. No significant distress noted. Impression: Debility, severe malnutrition secondary to achalasia now with PEG tube Large left hip decubitus stage 3-4 ulcer History of Diabetes mellitus type 2 Bipolar disorder/schizophrenia Anemia of chronic disease Plan Debility, severe malnutrition secondary to achalasia now with PEG tube: Continue PEG tube feeds. IV fluids held yesterday. Blood pressure slightly low. This is likely baseline. Will trial Midodrine for now. Patient also on full liquids. Social work working to transfer patient to a long-term care faci lity or the patient can stay. Spoke with director of social services today. This maybe at long process since it will be social security disability related. Will continue to work with family to help arrange. Large left hip decubitus stage 4: Wound healing consult in place. Patient remains on IV vancomycin to help with wound. Infectious Disease also consulted to address wound. Continue with wet-to-dry dressing at this time. History of Diabetes mellitus type 2: Hemoglobin A1c 5.2. No diabetes. Blood sugar slightly low. Encourage oral intake. Dietary may need to adjust PEG tube feeds. Bipolar disorder/schizophrenia: Continue current medication. Psych was consulted last week. Effexor added. Anemia of chronic disease: Stable. Continue with supplementation. Time Spent Managing Pts Care (In Minutes): 55
[2020-12-09] MEDS: MIDODRINE HCL 5 MG TABLET PO SCH (20:17)
[2020-12-09] MEDS: MIRTAZAPINE 15 MG TAB PO SCH (20:17)
[2020-12-10] MEDS: HYDROCOD 2.5mg-ACETAMIN 108mg/5mL Soln FT PRN ×3 (02:36→19:56)
[2020-12-10] MEDS: HALOPERIDOL LACT 5 MG/ML INJ IV PRN ×3 (03:55→12:58)
[2020-12-10] MEDS: VANCOMYCIN 750 MG in NA CHLORIDE 0.9% 250 ML IVPB SCH ×2 (05:32→17:44)
[2020-12-10] MEDS: ACETAMINOPHEN 500 MG TAB FT PRN (08:37)
[2020-12-10] MEDS: THIAMINE HCL 100 MG TABLET FT SCH (08:38)
[2020-12-10] MEDS: MIDODRINE HCL 5 MG TABLET PO SCH ×3 (08:38→19:57)
[2020-12-10] MEDS: RISPERIDONE 1 MG TABLET FT SCH ×2 (08:38→19:57)
[2020-12-10] MEDS: GABAPENTIN 100 MG CAP FT SCH ×3 (08:38→19:57)
[2020-12-10] MEDS: ONDANSETRON 4 MG/2 ML VIAL IV PRN (08:38)
[2020-12-10] MEDS: FOLIC ACID 1 MG TABLET FT SCH (08:39)
[2020-12-10] MEDS: MULTIVITAMINS 5 ML ORAL SYR FT SCH (09:30)
[2020-12-10] MEDS: VENLAFAXINE HCL 37.5 MG TAB PO SCH (09:30)
[2020-12-10] MEDS: JEVITY 1.2 CAL LIQUID 1,000 ML BOT FT SCH ×4 (10:15→19:59)
--- NOTE | 2020-12-10 10:57 | P.PN ---
Subjective Date of Service: 12/10/20 Primary Care Provider: none Chief Complaint: Debility, achalasia, sacral decubitus Subjective: Doing well Physical Examination - Vital Signs Temperature: 97.6 F Blood Pressure: 93/70 Pulse: 88 Respirations: 18 Pulse Ox (%): 100 - Physical Exam Other Physical/Emotional Findings: General: Alert, In no apparent distress, Cachectic, Other (severe malnutrition ). HEENT: Atraumatic, Normocephalic, PERRLA. Neck: Supple, 2+ carotid pulse no bruit, JVD not distended, No Thyromegaly. Respiratory: Clear to auscultation bilaterally, Normal air movement. Cardiovascular: No edema, Normal pulses, Regular rate/rhythm. Capillary refill: <2 Seconds. Gastrointestinal: Normal bowel sounds, Soft and benign, W/out succussion splash. Musculoskeletal: Other (diffuse muscle wasting ). Integumentary: Other (sacral stage 4 wound-base of wound shows 100% granulation tissue ). Urinary: Baltazar catheter - Studies Medications List Reviewed: Yes Assessment & Plan Discharge Plan: Other (Long-term care facility) Plan to discharge in: Greater than 2 days Physician Review Additional Text: Initial chief complaint: Severe malnutrition with poor social situation at home. Not able to take care of himself. Recently discharged from [facility] Physical exam: Patient alert, cooperative. Patient more alert and cooperative. Anxiety appears controlled. Patient appears very cachectic. Patient not well kept. Severely malnourished appearance. Heart: Regular rate rhythm Lungs: Clear to auscultation GI: Soft nontender. Peg tube in place. Extremities: Muscle wasting throughout. Nurses report left large hip stage 3-4 decubitus ulcer. Psych: Increased anxiety noted. No significant distress noted. Impression: Debility, severe malnutrition secondary to achalasia now with PEG tube Large left hip decubitus stage 3-4 ulcer History of Diabetes mellitus type 2 Bipolar disorder/schizophrenia Anemia of chronic disease Plan Debility, severe malnutrition secondary to achalasia now with PEG tube: Dietary consulted to maintain and monitor daily needs. Continue PEG tube feeds. Patient no longer on IV fluids. Patient was placed on Midodrine. Blood pressure stable on medication. Patient also on full liquids. Social Work continues to work on transfer to long-term care facility. This process maybe block due to social security disability related. Will continue to work with family to help arrange. Large left hip decubitus stage 4: Wound healing consult in place. Patient remains on IV vancomycin to help with wound. Infectious Disease also consulted to address wound. Continue with wet-to-dry dressing at this time. Will discuss with infectious disease on when IV antibiotic therapy can be discontinued. History of Diabetes mellitus type 2: Hemoglobin A1c 5.2. No diabetes. Blood sugar slightly low. Encourage oral intake. Dietary may need to adjust PEG tube feeds. Bipolar disorder/schizophrenia: Continue current medication. Psych was consulted last week. Effexor added. Mentation stable. Anemia of chronic disease: Stable. Continue with supplementation. Time Spent Managing Pts Care (In Minutes): 55
[2020-12-10] MEDS: MEDIHONEY 44 ML TOPICAL TUBE TOP SCH (16:25)
[2020-12-10] MEDS ORDERED: MIDODRINE HCL 5 MG TABLET PO ONE (18:00)
[2020-12-10] MEDS: MIRTAZAPINE 15 MG TAB PO SCH (19:57)
[2020-12-11] MEDS: HYDROCOD 2.5mg-ACETAMIN 108mg/5mL Soln FT PRN ×3 (04:39→22:42)
[2020-12-11] MEDS: VANCOMYCIN 750 MG in NA CHLORIDE 0.9% 250 ML IVPB SCH ×3 (06:00→22:42)
[2020-12-11] MEDS: MULTIVITAMINS 5 ML ORAL SYR FT SCH (07:52)
[2020-12-11] MEDS: VENLAFAXINE HCL 37.5 MG TAB PO SCH (07:53)
[2020-12-11] MEDS: THIAMINE HCL 100 MG TABLET FT SCH (07:53)
[2020-12-11] MEDS: FOLIC ACID 1 MG TABLET FT SCH (07:53)
[2020-12-11] MEDS: MIDODRINE HCL 5 MG TABLET PO SCH ×3 (07:53→22:19)
[2020-12-11] MEDS: ONDANSETRON 4 MG/2 ML VIAL IV PRN ×2 (07:54→22:57)
[2020-12-11] MEDS: GABAPENTIN 100 MG CAP FT SCH ×3 (07:54→22:19)
[2020-12-11] MEDS: HALOPERIDOL LACT 5 MG/ML INJ IV PRN (07:57)
[2020-12-11] MEDS: JEVITY 1.2 CAL LIQUID 1,000 ML BOT FT SCH ×4 (07:58→22:21)
[2020-12-11] MEDS: MEDIHONEY 44 ML TOPICAL TUBE TOP SCH (09:00)
[2020-12-11 09:30] LABS: BUN Blood Urea Nitrogen 10 mg/dL (7-18); Bicarbonate 31 mmol/L (21-32); Glucose Level 130 mg/dL (74-106); Potassium 4.7 mmol/L (3.5-5.1); Sodium Level 138 mmol/L (136-145)
[2020-12-11] MEDS: RISPERIDONE 1 MG TABLET FT SCH ×2 (10:29→22:18)
--- NOTE | 2020-12-11 12:48 | P.PN ---
Subjective Date of Service: 12/11/20 Primary Care Provider: none Chief Complaint: Debility, achalasia, sacral decubitus Subjective: No new changes Physical Examination - Vital Signs Temperature: 97.6 F Blood Pressure: 97/73 Pulse: 81 Respirations: 16 Pulse Ox (%): 97 - Physical Exam Other Physical/Emotional Findings: General: Alert, In no apparent distress, Cachectic, Other (severe malnutrition ). HEENT: Atraumatic, Normocephalic, PERRLA. Neck: Supple, 2+ carotid pulse no bruit, JVD not distended, No Thyromegaly. Respiratory: Clear to auscultation bilaterally, Normal air movement. Cardiovascular: No edema, Normal pulses, Regular rate/rhythm. Capillary refill: <2 Seconds. Gastrointestinal: Normal bowel sounds, Soft and benign, W/out succussion splash. Musculoskeletal: Other (diffuse muscle wasting ). Integumentary: Other (sacral stage 4 wound-base of wound shows 100% granulation tissue ). Urinary: Baltazar catheter - Studies Medications List Reviewed: Yes Assessment & Plan Discharge Plan: Other (senior care care facility) Plan to discharge in: Greater than 2 days Physician Review Additional Text: Initial chief complaint: Severe malnutrition with poor social situation at home. Not able to take care of himself. Recently discharged from [facility] Physical exam: Patient alert, cooperative. Patient more alert and cooperative. Anxiety appears controlled. Patient appears very cachectic. Patient not well kept. Severely malnourished appearance. Heart: Regular rate rhythm Lungs: Clear to auscultation GI: Soft nontender. Peg tube in place. Extremities: Muscle wasting throughout. Nurses report left large hip stage 3-4 decubitus ulcer. Psych: Increased anxiety noted. No significant distress noted. Impression: Debility, severe malnutrition secondary to achalasia now with PEG tube Large left hip decubitus stage 3-4 ulcer History of Diabetes mellitus type 2 Bipolar disorder/schizophrenia Anemia of chronic disease Plan Debility, severe malnutrition secondary to achalasia now with PEG tube: Continue with dietitian recommendations. Encourage oral intake. Continue PEG tube feeds. Continue Midodrine. Blood pressure stable on medication. Social Work continues to work on transfer to long-term care facility. This process maybe long/delayed due to social security disability related. Continue to wait on social work recommendations. Large left hip decubitus stage 4: Wound healing consult in place. Patient remains on IV vancomycin to help with wound. Infectious Disease also consulted to address wound. Continue with wet-to-dry dressing at this time. Will discuss with infectious disease on when IV antibiotic therapy can be discontinued. History of Diabetes mellitus type 2: Hemoglobin A1c 5.2. No diabetes. Blood sugar slightly low. Encourage oral intake. Dietary may need to adjust PEG tube feeds. Bipolar disorder/schizophrenia: Continue current medication. Psych was consulted last week. Effexor added. Mentation stable. Anemia of chronic disease: Stable. Continue with supplementation. Time Spent Managing Pts Care (In Minutes): 55
[2020-12-11] MEDS: MIRTAZAPINE 15 MG TAB PO SCH (22:18)
[2020-12-12 07:09] LABS: BUN Blood Urea Nitrogen 9 mg/dL (7-18); Bicarbonate 33 mmol/L (21-32); Glucose Level 84 mg/dL (74-106); Potassium 4.6 mmol/L (3.5-5.1); Sodium Level 140 mmol/L (136-145)
[2020-12-12] MEDS: RISPERIDONE 1 MG TABLET FT SCH ×2 (09:48→20:54)
[2020-12-12] MEDS: FOLIC ACID 1 MG TABLET FT SCH (09:48)
[2020-12-12] MEDS: GABAPENTIN 100 MG CAP FT SCH ×3 (09:48→20:54)
[2020-12-12] MEDS: HYDROCOD 2.5mg-ACETAMIN 108mg/5mL Soln FT PRN (09:49)
[2020-12-12] MEDS: MULTIVITAMINS 5 ML ORAL SYR FT SCH (09:49)
[2020-12-12] MEDS: THIAMINE HCL 100 MG TABLET FT SCH (09:49)
[2020-12-12] MEDS: VENLAFAXINE HCL 37.5 MG TAB PO SCH (09:49)
[2020-12-12] MEDS: MEDIHONEY 44 ML TOPICAL TUBE TOP SCH (09:51)
[2020-12-12] MEDS: JEVITY 1.2 CAL LIQUID 1,000 ML BOT FT SCH ×4 (09:51→20:54)
[2020-12-12] MEDS: MIDODRINE HCL 5 MG TABLET PO SCH ×3 (09:54→21:00)
[2020-12-12] MEDS: VANCOMYCIN 750 MG in NA CHLORIDE 0.9% 250 ML IVPB SCH ×2 (09:56→23:15)
--- NOTE | 2020-12-12 14:15 | P.PN ---
Subjective Date of Service: 12/12/20 Primary Care Provider: none Chief Complaint: Debility, achalasia, sacral decubitus Subjective: No new changes, Doing well Physical Examination - Vital Signs Temperature: 97.5 F Blood Pressure: 90/60 Pulse: 85 Respirations: 16 Pulse Ox (%): 100 - Physical Exam Other Physical/Emotional Findings: General: Alert, In no apparent distress, Cachectic, Other (severe malnutrition ). HEENT: Atraumatic, Normocephalic, PERRLA. Neck: Supple, 2+ carotid pulse no bruit, JVD not distended, No Thyromegaly. Respiratory: Clear to auscultation bilaterally, Normal air movement. Cardiovascular: No edema, Normal pulses, Regular rate/rhythm. Capillary refill: <2 Seconds. Gastrointestinal: Normal bowel sounds, Soft and benign, W/out succussion splash. Musculoskeletal: Other (diffuse muscle wasting ). Integumentary: Other (sacral stage 4 wound-base of wound shows 100% granulation tissue ). Urinary: Baltazar catheter - Studies Medications List Reviewed: Yes Assessment & Plan Discharge Plan: Other (Long-term care facility) Plan to discharge in: Greater than 2 days Physician Review Additional Text: Initial chief complaint: Severe malnutrition with poor social situation at home. Not able to take care of himself. Recently discharged from [facility] Physical exam: Patient alert, cooperative. Patient more alert and cooperative. Anxiety appears controlled. Patient appears very cachectic. Patient not well kept. Severely malnourished appearance. Heart: Regular rate rhythm Lungs: Clear to auscultation GI: Soft nontender. Peg tube in place. Extremities: Muscle wasting throughout. Nurses report left large hip stage 3-4 decubitus ulcer. Psych: Increased anxiety noted. No significant distress noted. Impression: Debility, severe malnutrition secondary to achalasia now with PEG tube Large left hip decubitus stage 3-4 ulcer History of Diabetes mellitus type 2 Bipolar disorder/schizophrenia Anemia of chronic disease Plan Debility, severe malnutrition secondary to achalasia now with PEG tube: Patient remained stable. Continue with dietitian recommendations. Encourage oral intake. Continue PEG tube feeds. Continue Midodrine. Blood pressure stable on medication. Social Work continues to work on transfer to long-term care facility. This process maybe long/delayed due to social security disability related. Continue to wait on social work recommendations. Large left hip decubitus stage 4: Wound healing consult in place. Patient remains on IV vancomycin to help with wound. Infectious Disease also consulted to address wound. Continue with wet-to-dry dressing at this time. Will discuss with infectious disease on when IV antibiotic therapy can be changed over to oral medication. History of Diabetes mellitus type 2: Hemoglobin A1c 5.2. No diabetes. Blood sugar slightly low. Encourage oral intake. Dietary may need to adjust PEG tube feeds. Bipolar disorder/schizophrenia: Continue current medication. Psych was consulted last week. Effexor added. Mentation stable. Anemia of chronic disease: Stable. Continue with supplementation. Time Spent Managing Pts Care (In Minutes): 55
[2020-12-12] MEDS: ONDANSETRON 4 MG/2 ML VIAL IV PRN (18:15)
[2020-12-12] MEDS: MIRTAZAPINE 15 MG TAB PO SCH (20:54)
[2020-12-13] MEDS: HYDROCOD 2.5mg-ACETAMIN 108mg/5mL Soln FT PRN ×4 (01:46→17:58)
[2020-12-13 07:10] LABS: BUN Blood Urea Nitrogen 9 mg/dL (7-18); Bicarbonate 30 mmol/L (21-32); Glucose Level 79 mg/dL (74-106); Potassium 4.4 mmol/L (3.5-5.1); Sodium Level 139 mmol/L (136-145)
[2020-12-13] MEDS: MULTIVITAMINS 5 ML ORAL SYR FT SCH (08:32)
[2020-12-13] MEDS: ONDANSETRON 4 MG/2 ML VIAL IV PRN ×2 (08:32→16:41)
[2020-12-13] MEDS: VENLAFAXINE HCL 37.5 MG TAB PO SCH (08:33)
[2020-12-13] MEDS: GABAPENTIN 100 MG CAP FT SCH ×3 (08:33→20:47)
[2020-12-13] MEDS: MEDIHONEY 44 ML TOPICAL TUBE TOP SCH (08:33)
[2020-12-13] MEDS: FOLIC ACID 1 MG TABLET FT SCH (08:33)
[2020-12-13] MEDS: RISPERIDONE 1 MG TABLET FT SCH ×2 (08:33→20:46)
[2020-12-13] MEDS: MIDODRINE HCL 5 MG TABLET PO SCH ×3 (08:33→20:46)
[2020-12-13] MEDS: JEVITY 1.2 CAL LIQUID 1,000 ML BOT FT SCH ×4 (08:33→20:47)
[2020-12-13] MEDS: THIAMINE HCL 100 MG TABLET FT SCH (08:35)
--- NOTE | 2020-12-13 09:18 | P.PN ---
Subjective Date of Service: 12/13/20 Primary Care Provider: none Chief Complaint: Debility, achalasia, sacral decubitus Subjective: No new changes, Doing well Physical Examination - Vital Signs Temperature: 97.2 F Blood Pressure: 102/72 Pulse: 83 Respirations: 18 Pulse Ox (%): 100 - Physical Exam Other Physical/Emotional Findings: General: Alert, In no apparent distress, Cachectic, Other (severe malnutrition ). HEENT: Atraumatic, Normocephalic, PERRLA. Neck: Supple, 2+ carotid pulse no bruit, JVD not distended, No Thyromegaly. Respiratory: Clear to auscultation bilaterally, Normal air movement. Cardiovascular: No edema, Normal pulses, Regular rate/rhythm. Capillary refill: <2 Seconds. Gastrointestinal: Normal bowel sounds, Soft and benign, W/out succussion splash. Musculoskeletal: Other (diffuse muscle wasting ). Integumentary: Other (sacral stage 4 wound-base of wound shows 100% granulation tissue ). Urinary: Baltazar catheter - Studies Medications List Reviewed: Yes Assessment & Plan Discharge Plan: Custodial (assisted) Plan to discharge in: Unknown Physician Review Additional Text: Initial chief complaint: Severe malnutrition with poor social situation at home. Not able to take care of himself. Recently discharged from [facility] Physical exam: Patient alert, cooperative. Patient more alert and cooperative. Anxiety appears controlled. Patient appears very cachectic. Patient not well kept. Severely malnourished appearance. Heart: Regular rate rhythm Lungs: Clear to auscultation GI: Soft nontender. Peg tube in place. Extremities: Muscle wasting throughout. Nurses report left large hip stage 3-4 decubitus ulcer. Psych: Increased anxiety noted. No significant distress noted. Impression: Debility, severe malnutrition secondary to achalasia now with PEG tube Large left hip decubitus stage 3-4 ulcer History of Diabetes mellitus type 2 Bipolar disorder/schizophrenia Anemia of chronic disease Plan Debility, severe malnutrition secondary to achalasia now with PEG tube: Patient remained stable. Continue with dietitian recommendations. Encourage oral intake. Continue PEG tube feeds. Continue Midodrine. Blood pressure stable on medication. Social Work continues to work on transfer to long-term care facility. Spoke with executive secretary social welfare today. Will try to arrange visit with [facility] to discuss process and understand any road blocks to getting him to [facility]. This process maybe long/delayed due to social security disability related. Large left hip decubitus stage 4: Wound healing consult in place. Patient re payton on IV vancomycin to help with wound. Infectious Disease also consulted to address wound. Continue with wet-to-dry dressing at this time. Will discuss with infectious disease on when IV antibiotic therapy can be changed over to oral medication. History of Diabetes mellitus type 2: Hemoglobin A1c 5.2. No diabetes. Blood sugar slightly low. Encourage oral intake. Dietary may need to adjust PEG tube feeds. Bipolar disorder/schizophrenia: Continue current medication. Psych was consulted last week. Effexor added. Mentation stable. Anemia of chronic disease: Stable. Continue with supplementation. Time Spent Managing Pts Care (In Minutes): 55
[2020-12-13] MEDS: VANCOMYCIN 750 MG in NA CHLORIDE 0.9% 250 ML IVPB SCH ×2 (09:54→22:00)
[2020-12-13] MEDS: HALOPERIDOL LACT 5 MG/ML INJ IV PRN (20:42)
[2020-12-13] MEDS: MIRTAZAPINE 15 MG TAB PO SCH (20:46)
[2020-12-13] MEDS ORDERED: HALOPERIDOL LACT 5 MG/ML INJ IV ONE (21:45)
[2020-12-14] MEDS: HYDROCOD 2.5mg-ACETAMIN 108mg/5mL Soln FT PRN ×2 (00:49→06:22)
--- NOTE | 2020-12-14 10:20 | P.PN ---
Subjective Date of Service: 12/14/20 Primary Care Provider: none Chief Complaint: Debility, achalasia, sacral decubitus Subjective: No new changes, Doing well Physical Examination - Vital Signs Temperature: 97.4 F Blood Pressure: 108/68 Pulse: 67 Respirations: 18 Pulse Ox (%): 96 - Physical Exam Other Physical/Emotional Findings: General: Alert, In no apparent distress, Cachectic, Other (severe malnutrition ). HEENT: Atraumatic, Normocephalic, PERRLA. Neck: Supple, 2+ carotid pulse no bruit, JVD not distended, No Thyromegaly. Respiratory: Clear to auscultation bilaterally, Normal air movement. Cardiovascular: No edema, Normal pulses, Regular rate/rhythm. Capillary refill: <2 Seconds. Gastrointestinal: Normal bowel sounds, Soft and benign, W/out succussion splash. Musculoskeletal: Other (diffuse muscle wasting ). Integumentary: Other (sacral stage 4 wound-base of wound shows 100% granulation tissue ). Urinary: Baltazar catheter - Studies Medications List Reviewed: Yes Assessment & Plan Discharge Plan: [facility] Care Plan to discharge in: Greater than 2 days Physician Review Additional Text: Initial chief complaint: 35-year-old male with Severe malnutrition, achalasia with poor social situation at home. Now with PEG tube. Not able to take care of himself. Recently discharged from [facility] Physical exam: Patient alert, cooperative. Patient more alert and cooperative. Anxiety appears controlled. Patient appears very cachectic. Severely malnourished appearance. Heart: Regular rate rhythm Lungs: Clear to auscultation GI: Soft nontender. Peg tube in place. Extremities: Muscle wasting throughout. Psych: Increased anxiety noted. No significant distress noted. Impression: Debility, severe malnutrition secondary to achalasia now with PEG tube Large left hip decubitus stage 3-4 ulcer History of Diabetes mellitus type 2 Bipolar disorder/schizophrenia Anemia of chronic disease Plan Debility, severe malnutrition secondary to achalasia now with PEG tube: Patient overall stable. Continue with PEG tube feeds. Will have dietary monitor and adjust medication for better nutrition. Continue Midodrine. Blood pressure stable on medication. Social Work continues to work on transfer to long-term care facility. Spoke with social media assistant and [facility] pharmacy sales representative at length yesterday. Also spoke to family-sister and cousin in detail. Family has sent appropriate information to apply for SSI (on December 05) through [facility] social work services. SSDI application already in place. They are to meet with [facility] social media assistant on Tuesday to get update on progress. 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 He referred me to [facility] Social work to better understand current situation. I left message with Micki Bunn, Social service at [facility] yesterday. I will try again today. I need her help to reach Barbara Fraser or Mr. Bergman as recommended by MANAGEMENT ANALYST [facility] Dr. Wang. Await to here there response. If this becomes more problematic in helping arrange to equipment operator intermodal yard care, I may reach out to [facility] MANAGEMENT ANALYST-Dr. Wang to help facilitate transfer to continue continuity of care and completion of state funded SSDI/SSI application for the patient at [facility]. I have discussed this in detail with family. I will meet with him again today. They agree with current care. I will turn the service to the hospitalist team tomorrow. I will go plan of care with him. Large left hip decubitus stage 4: Wound healing consult in place. Patient remains on IV vancomycin to help with wound. Infectious Disease also consulted to address wound. Continue with wet-to-dry dressing at this time. Will discuss with infectious disease on when IV antibiotic therapy can be changed over to oral medication. History of Diabetes mellitus type 2: Hemoglobin A1c 5.2. No diabetes. Blood sugar slightly low. Encourage oral intake. Dietary may need to adjust PEG tube feeds. Bipolar disorder/schizophrenia: Continue current medication. Psych was consulted last week. Effexor added. Mentation stable. Anemia of chronic disease: Stable. Continue with supplementation. Time Spent Managing Pts Care (In Minutes): 55
[2020-12-14] MEDS: FOLIC ACID 1 MG TABLET FT SCH (11:00)
[2020-12-14] MEDS: RISPERIDONE 1 MG TABLET FT SCH ×2 (11:00→22:21)
[2020-12-14] MEDS: MIDODRINE HCL 5 MG TABLET PO SCH ×3 (11:00→22:25)
[2020-12-14] MEDS: THIAMINE HCL 100 MG TABLET FT SCH (11:00)
[2020-12-14] MEDS: GABAPENTIN 100 MG CAP FT SCH ×3 (11:00→22:20)
[2020-12-14] MEDS: VENLAFAXINE HCL 37.5 MG TAB PO SCH (11:01)
[2020-12-14] MEDS: MULTIVITAMINS 5 ML ORAL SYR FT SCH (11:01)
[2020-12-14] MEDS: VANCOMYCIN 750 MG in NA CHLORIDE 0.9% 250 ML IVPB SCH ×2 (11:02→22:00)
[2020-12-14] MEDS: MEDIHONEY 44 ML TOPICAL TUBE TOP SCH (11:03)
[2020-12-14] MEDS: JEVITY 1.2 CAL LIQUID 1,000 ML BOT FT SCH ×4 (11:04→22:25)
[2020-12-14] MEDS: ACETAMINOPHEN 500 MG TAB FT PRN (12:48)
[2020-12-14] MEDS: HYDROCOD 2.5mg-ACETAMIN 108mg/5mL Soln PO PRN (22:20)
[2020-12-14] MEDS: MIRTAZAPINE 15 MG TAB PO SCH (22:21)
[2020-12-15] MEDS: HYDROCOD 2.5mg-ACETAMIN 108mg/5mL Soln PO PRN ×4 (04:18→23:03)
[2020-12-15] MEDS: MEDIHONEY 44 ML TOPICAL TUBE TOP SCH (04:39)
[2020-12-15] MEDS: ONDANSETRON 4 MG/2 ML VIAL IV PRN (06:15)
--- NOTE | 2020-12-15 07:00 | P.PN ---
Subjective Date of Service: 12/15/20 Primary Care Provider: none Chief Complaint: Debility, achalasia, sacral decubitus Subjective: No new changes, Doing well Physical Examination - Vital Signs Temperature: 98.1 F Blood Pressure: 95/68 Pulse: 88 Respirations: 16 Pulse Ox (%): 98 - Physical Exam Other Physical/Emotional Findings: General: Alert, In no apparent distress, Cachectic, Other (severe malnutrition ). HEENT: Atraumatic, Normocephalic, PERRLA. Neck: Supple, 2+ carotid pulse no bruit, JVD not distended, No Thyromegaly. Respiratory: Clear to auscultation bilaterally, Normal air movement. Cardiovascular: No edema, Normal pulses, Regular rate/rhythm. Capillary refill: <2 Seconds. Gastrointestinal: Normal bowel sounds, Soft and benign, W/out succussion splash. Musculoskeletal: Other (diffuse muscle wasting ). Integumentary: Other (sacral stage 4 wound-base of wound shows 100% granulation tissue ). Urinary: Baltazar catheter - Studies Medications List Reviewed: Yes Assessment & Plan Discharge Plan: Custodial Plan to discharge in: Greater than 2 days Physician Review Additional Text: Initial chief complaint: 35-year-old male with Severe malnutrition, achalasia with poor social situation at home. Now with PEG tube. Not able to take care of himself. Recently discharged from [facility] Physical exam: Patient alert, cooperative. Doing well this time. Anxiety appears controlled. Patient appears very cachectic. Severely malnourished appearance. Heart: Regular rate rhythm Lungs: Clear to auscultation GI: Soft nontender. Peg tube in place. Extremities: Muscle wasting throughout. Psych: Increased anxiety noted. No significant distress noted. Impression: Debility, severe malnutrition secondary to achalasia now with PEG tube Large left hip decubitus stage 3-4 ulcer History of Diabetes mellitus type 2 Bipolar disorder/schizophrenia Anemia of chronic disease Plan Debility, severe malnutrition secondary to achalasia now with PEG tube: Family was able to bring soup to him yesterday. Patient overall stable. Continue with PEG tube feeds. Continue to have dietary monitor and adjust medication for better nutrition. Continue Midodrine. Blood pressure stable on medication. Social Work continues to work on transfer to long-term care facility. Spoke with social work manager and [facility] client support representative at length Tuesday. Also spoke to family-sister and cousin in detail. Family has sent appropriate information to apply for SSI (on December 05) through [facility] social work services. SSDI application already in place. They are to meet with [facility] social work manager on Tuesday to get update on progress. 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 He referred me to [facility] Social work to better understand current situation. I left message with Micki Bunn, Social service at [facility] Tuesday. I will try again today. I need her help to reach Barbara Fraser or Mr. Bergman as recommended by [facility] Dr. Wang. Await to hear there response. If this becomes more problematic in helping arrange to bed bug exterminator care, I may reach out to [facility] STONER HAND-Dr. Wang to help facilitate transfer to continue continuity of care and completion of state funded SSDI/SSI application for the patient at [facility]. I have discussed this in detail with family. They agree with plan. I will turn the service to the hospitalist team tomorrow. I will go plan of care with him. Large left hip decubitus stage 4: Wound healing consult in place. Patient remains on IV vancomycin to help with wound. Infectious Disease also consulted to address wound. Continue with wet-to-dry dressing at this time. Will discuss with infectious disease on when IV antibiotic therapy can be changed over to oral medication. History of Diabetes mellitus type 2: Hemoglobin A1c 5.2. No diabetes. Blood sugar slightly low. Encourage oral intake. Dietary may need to adjust PEG tube feeds. Bipolar disorder/schizophrenia: Continue current medication. Psych was consulted last week. Effexor added. Mentation stable. Anemia of chronic disease: Stable. Continue with supplementation. Time Spent Managing Pts Care (In Minutes): 55
[2020-12-15] MEDS: MIDODRINE HCL 5 MG TABLET PO SCH ×3 (09:39→21:13)
[2020-12-15] MEDS: RISPERIDONE 1 MG TABLET FT SCH ×2 (09:39→21:13)
[2020-12-15] MEDS: MULTIVITAMINS 5 ML ORAL SYR FT SCH (09:39)
[2020-12-15] MEDS: FOLIC ACID 1 MG TABLET FT SCH (09:39)
[2020-12-15] MEDS: VENLAFAXINE HCL 37.5 MG TAB PO SCH (09:39)
[2020-12-15] MEDS: GABAPENTIN 100 MG CAP FT SCH ×3 (09:39→21:13)
[2020-12-15] MEDS: THIAMINE HCL 100 MG TABLET FT SCH (09:40)
[2020-12-15] MEDS: JEVITY 1.2 CAL LIQUID 1,000 ML BOT FT SCH ×4 (09:40→21:13)
[2020-12-15] MEDS: VANCOMYCIN 750 MG in NA CHLORIDE 0.9% 250 ML IVPB SCH ×2 (10:00→22:08)
--- NOTE | 2020-12-15 14:40 | P.PN ---
Subjective Date of Service: 12/15/20 Primary Care Provider: none Chief Complaint: Debility, achalasia, sacral decubitus Patient seen and examined at bedside. No acute complaints at this time, afebrile, no leukocytosis. Review of Systems 10-point ROS is otherwise unremarkable Physical Examination - Vital Signs Temperature: 98.3 F Blood Pressure: 96/64 Pulse: 80 Respirations: 17 Pulse Ox (%): 100 - Physical Exam Other Physical/Emotional Findings: General: Alert, In no apparent distress, Cachectic, Other (severe malnutrition ). HEENT: Atraumatic, Normocephalic, PERRLA. Neck: Supple, 2+ carotid pulse no bruit, JVD not distended, No Thyromegaly. Respiratory: Clear to auscultation bilaterally, Normal air movement. Cardiovascular: No edema, Normal pulses, Regular rate/rhythm. Capillary refill: <2 Seconds. Gastrointestinal: Normal bowel sounds, Soft and benign, W/out succussion splash. Musculoskeletal: Other (diffuse muscle wasting ). Integumentary: Other (sacral stage 4 wound-healing. Base of wound shows granulation and epithelization tissue. No drainage from wound bed. Periwound tissue is clean, dry, intact with no signs of acute infection. ). Urinary: Baltazar catheter - Studies Medications List Reviewed: Yes Assessment And Plan - Plan Assessment 1.Sacral coccyx stage IV wound. 2.Severe malnourished. 3.Diabetes mellitus 4. anemia of chronic disease associated with malnourished. . Plan: 1. medihoney, silver alginate, cover with foam qMWF. CT Pelvis could not rule out osteomyelitis-continue vanco. Will monitor renal function closely. Dose adjusted via pharmacy. 2. Continue nutrition as the patient needed for healing of his wounds. 3. medical management per primary team. -We will continue to monitor CBC-BMP, monitor for signs of infection. We will follow closely Plan of care discussed with Dr. Sosa. Thank you Dr. Hernández for consult.
[2020-12-15] MEDS: MIRTAZAPINE 15 MG TAB PO SCH (21:13)
[2020-12-16] MEDS: HYDROCOD 2.5mg-ACETAMIN 108mg/5mL Soln PO PRN (05:16)
[2020-12-16] MEDS: VENLAFAXINE HCL 37.5 MG TAB PO SCH (08:44)
[2020-12-16] MEDS: MIDODRINE HCL 5 MG TABLET PO SCH ×3 (08:47→20:03)
[2020-12-16] MEDS: RISPERIDONE 1 MG TABLET FT SCH ×2 (08:47→20:03)
[2020-12-16] MEDS: FOLIC ACID 1 MG TABLET FT SCH (08:48)
[2020-12-16] MEDS: GABAPENTIN 100 MG CAP FT SCH ×3 (08:49→20:03)
[2020-12-16] MEDS: MULTIVITAMINS 5 ML ORAL SYR FT SCH (08:56)
[2020-12-16] MEDS: THIAMINE HCL 100 MG TABLET FT SCH (09:00)
[2020-12-16] MEDS: JEVITY 1.2 CAL LIQUID 1,000 ML BOT FT SCH ×4 (09:00→20:04)
[2020-12-16] MEDS: MEDIHONEY 44 ML TOPICAL TUBE TOP SCH (09:00)
[2020-12-16] MEDS: VANCOMYCIN 750 MG in NA CHLORIDE 0.9% 250 ML IVPB SCH ×2 (09:09→21:22)
--- NOTE | 2020-12-16 10:23 | P.PN ---
Subjective Date of Service: 12/16/20 Primary Care Provider: none Chief Complaint: Debility, achalasia, sacral decubitus Patient seen and examined at bedside. Complains of pain all over...denies N/V/D. Continue vanco for 6 weeks from start date for osteomyelitis. Tolerating antibiotic well. Physical Examination - Vital Signs Temperature: 98.2 F Blood Pressure: 101/63 Pulse: 72 Respirations: 17 Pulse Ox (%): 98 - Physical Exam Other Physical/Emotional Findings: General: Alert, In no apparent distress, Cachectic, Other (severe malnutrition ). HEENT: Atraumatic, Normocephalic, PERRLA. Neck: Supple, 2+ carotid pulse no bruit, JVD not distended, No Thyromegaly. Respiratory: Clear to auscultation bilaterally, Normal air movement. Cardiovascular: No edema, Normal pulses, Regular rate/rhythm. Capillary refill: <2 Seconds. Gastrointestinal: Normal bowel sounds, Soft and benign, W/out succussion splash. Musculoskeletal: Other (diffuse muscle wasting ). Integumentary: Other (sacral stage 4 wound-healing. Base of wound shows granulation and epithelization tissue. No drainage from wound bed. Periwound tissue is clean, dry, intact with no signs of acute infection. ). Urinary: Baltazar catheter - Studies Medications List Reviewed: Yes Assessment And Plan - Plan Assessment 1.Sacral coccyx stage IV wound. 2.Severe malnourished. 3.Diabetes mellitus 4. anemia of chronic disease associated with malnourished. . Plan: 1. medihoney, silver alginate, cover with foam qMWF. CT Pelvis could not rule out osteomyelitis-continue vanco for 6 weeks from start date (12/11). Will mo nitor renal function closely. Dose adjusted via pharmacy. 2. Continue nutrition as the patient needed for healing of his wounds. 3. medical management per primary team. -We will continue to monitor CBC-BMP, monitor for signs of infection. We will follow closely Plan of care discussed with Dr. Sosa. Thank you Dr. Hernández for consult. Physician Review Additional Text: .
[2020-12-16] MEDS ORDERED: HALOPERIDOL LACT 5 MG/ML INJ IV PRN (10:36)
[2020-12-16] MEDS ORDERED: LORazepam 2 MG/ML VIAL IV ONE ×2 (11:24→17:00)
--- NOTE | 2020-12-16 13:56 | P.PN ---
Subjective Date of Service: 12/16/20 Chief Complaint: Debility, achalasia, sacral decubitus Subjective: No new changes, Tolerating diet, Doing well At bedside, patient is eating grits and a popsicle. Of note, craving a lot of salt. He is talking and oriented. Discussed plan to go to facility with patient. He is in no pain. Review of Systems 10-point ROS is otherwise unremarkable General: Weakness, As per HPI Integumentary: As per HPI Physical Examination - Vital Signs Temperature: 98.2 F Blood Pressure: 101/63 Pulse: 72 Respirations: 17 Pulse Ox (%): 98 - Physical Exam General: Alert, In no apparent distress, Cooperative, Cachectic HEENT: Atraumatic, Normocephalic, PERRLA, Mucous membr. moist/pink, EOMI Neck: 2+ carotid pulse no bruit, JVD not distended, No Thyromegaly, No LAD Respiratory: Clear to auscultation bilaterally, Normal air movement Cardiovascular: No edema, Normal pulses, Regular rate/rhythm, Normal S1 S2, No gallops, No rubs, No murmurs Capillary refill: <2 Seconds Gastrointestinal: Hypoactive, Soft and benign, No ascites, No tenderness, No masses, No rebound, No guarding, Other (PEG tube site without edema or erythema) Musculoskeletal: No clubbing, No swelling, No contractures, No erythema, No tenderness, No warmth Integumentary: No rashes, No tenderness/swelling, No erythema, No warmth, No cyanosis, Skin breakdown, Pressure ulcer Neurological: Normal speech, Normal tone, Sensation intact, Cranial nerves 3-12 intact, Normal affect, Abnormal gait, Abnormal strength Lymphatics: No axilla or inguinal lymphadenopathy Other Physical/Emotional Findings: General: Alert, In no apparent distress, Cachectic, Other (severe malnutrition ). HEENT: Atraumatic, Normocephalic, PERRLA. Neck: Supple, 2+ carotid pulse no bruit, JVD not distended, No Thyromegaly. Respiratory: Clear to auscultation bilaterally, Normal air movement. Cardiovascular: No edema, Normal pulses, Regular rate/rhythm. Capillary refill: <2 Seconds. Gastrointestinal: Normal bowel sounds, Soft and benign, W/out succussion splash. Musculoskeletal: Other (diffuse muscle wasting ). Integumentary: Other (sacral stage 4 wound-healing. Base of wound shows granulation and epithelization tissue. No drainage from wound bed. Periwound tissue is clean, dry, intact with no signs of acute infection. ). Urinary: Baltazar catheter - Studies Medications List Reviewed: Yes Assessment & Plan - Problems (Diagnosis) (1) Malnutrition Current Visit: Yes Status: Chronic Qualifiers: Malnutrition type: unspecified type Qualified Code(s): E46 - Unspecified protein-calorie malnutrition (2) S/P percutaneous endoscopic gastrostomy (PEG) tube placement Current Visit: Yes Status: Chronic (3) Sacral decubitus ulcer, stage IV Current Visit: Yes Status: Acute (4) Achalasia Current Visit: Yes Status: Chronic (5) Bipolar 1 disorder Current Visit: Yes Status: Chronic (6) Schizophrenia Current Visit: Yes Status: Chronic Qualifiers: Schizophrenia type: unspecified Qualified Code(s): F20.9 - Schizophrenia, unspecified - Plan Severe malnutrition secondary to achalasia with PEG tube: Patient overall stab le. Continue with PEG tube feeds. Continue to have dietary monitor and adjust medication for better nutrition. Continue Midodrine. Blood pressure stable on medication. Social Work continues to work on transfer to long-term care facility Large left hip decubitus stage 4: Followed by wound care shaquille, mahnaz rai, cover with foam qMWF. CT pelvis could not r/o osteomyelitis. Continue vancomycin for 6 weeks from 12/11. ID will continue to follow to monitor renal function. History of Diabetes mellitus type 2: Hemoglobin A1c 5.2. No diabetes. Blood sugar slightly low. Encourage oral intake. Dietary may need to adjust PEG tube feeds. Bipolar disorder/schizophrenia: Continue current medication. Psych was consulted last week. Effexor added. Mentation stable. Anemia of chronic disease: Stable. Continue with supplementation. Discharge Plan: LTAC Plan to discharge in: 24 Hours - Advance Directives Does patient have a Living Will: No Does patient have a Durable POA for Healthcare: No - Code Status/Comfort Care Code Status: Full Code Critical Care: No Time Spent Managing PTS Care (In Minutes): 55
[2020-12-16] MEDS: clonazePAM 0.5 MG TAB PO SCH ×2 (13:57→20:03)
[2020-12-16] MEDS: HALOPERIDOL LACT 5 MG/ML INJ IV PRN (16:03)
[2020-12-16] MEDS: MIRTAZAPINE 15 MG TAB PO SCH (20:03)
[2020-12-17] MEDS: HYDROCOD 2.5mg-ACETAMIN 108mg/5mL Soln PO PRN (07:17)
--- NOTE | 2020-12-17 08:25 | P.PN ---
Subjective Date of Service: 12/17/20 Chief Complaint: Debility, achalasia, sacral decubitus Subjective: No new changes, Tolerating diet, Doing well At bedside, patient reports 7/10 pain at pressure ulcer site. Received 15mL of hydrocodone solution at 7am. Patient's appetite has been increasing. Went over plan with patient. Review of Systems 10-point ROS is otherwise unremarkable General: As per HPI Musculoskeletal: Back Pain Integumentary: As per HPI Neurological: As per HPI Physical Examination - Vital Signs Temperature: 97.7 F Blood Pressure: 101/66 Pulse: 99 Respirations: 16 Pulse Ox (%): 98 - Physical Exam General: Alert, Cooperative, Mild distress HEENT: Atraumatic, Normocephalic, PERRLA, Mucous membr. moist/pink, EOMI Neck: Supple, 2+ carotid pulse no bruit Respiratory: Clear to auscultation bilaterally, Normal air movement Cardiovascular: No edema, Normal pulses, Regular rate/rhythm, Normal S1 S2, No gallops, No rubs, No murmurs Capillary refill: <2 Seconds Gastrointestinal: Normal bowel sounds, Soft and benign, Non-distended, No ascites, No tenderness, No masses, No rebound, No guarding, Other (peg tube site clean) Musculoskeletal: No clubbing, No swelling, No contractures, No erythema, No tenderness, No warmth Integumentary: Rash(es), Skin breakdown, Pressure ulcer Neurological: Normal speech, Sensation intact Lymphatics: No axilla or inguinal lymphadenopathy Other Physical/Emotional Findings: General: Alert, In no apparent distress, Cachectic, Other (severe malnutrition ). HEENT: Atraumatic, Normocephalic, PERRLA. Neck: Supple, 2+ carotid pulse no bruit, JVD not distended, No Thyromegaly. Respiratory: Clear to auscultation bilaterally, Normal air m ovement. Cardiovascular: No edema, Normal pulses, Regular rate/rhythm. Capillary refill: <2 Seconds. Gastrointestinal: Normal bowel sounds, Soft and benign, W/out succussion splash. Musculoskeletal: Other (diffuse muscle wasting ). Integumentary: Other (sacral stage 4 wound-healing. Base of wound shows granulation and epithelization tissue. No drainage from wound bed. Periwound tissue is clean, dry, intact with no signs of acute infection. ). Urinary: Baltazar catheter - Studies Medications List Reviewed: Yes Assessment & Plan - Problems (Diagnosis) (1) Malnutrition Current Visit: Yes Status: Chronic Qualifiers: Malnutrition type: unspecified type Qualified Code(s): E46 - Unspecified protein-calorie malnutrition (2) S/P percutaneous endoscopic gastrostomy (PEG) tube placement Current Visit: Yes Status: Chronic (3) Sacral decubitus ulcer, stage IV Current Visit: Yes Status: Acute (4) Achalasia Current Visit: Yes Status: Chronic (5) Bipolar 1 disorder Current Visit: Yes Status: Chronic (6) Schizophrenia Current Visit: Yes Status: Chronic Qualifiers: Schizophrenia type: unspecified Qualified Code(s): F20.9 - Schizophrenia, unspecified - Plan Severe malnutrition secondary to achalasia with PEG tube: Patient overall stable. Continue with PEG tube feeds. Continue to have dietary monitor and adjust medication for better nutrition. Continue Midodrine. Blood pressure stable on medication. Continuing to await placement, family is working on paperwork to transfer Mr. Ag to a facility. Large left hip decubitus stage 4: Followed by wound care: shaquille, silver alginate, cover with foam qMWF. CT pelvis could not r/o osteomyelitis. Continue vancomycin for 6 weeks from 12/11. ID will continue to follow to monitor renal fu nction. History of Diabetes mellitus type 2: Hemoglobin A1c 5.2. No diabetes. Blood sugar slightly low. Encourage oral intake. Dietary may need to adjust PEG tube feeds. Bipolar disorder/schizophrenia: Continue current medication. Psych was consulted last week. Effexor added. Mentation stable. Anemia of chronic disease: Stable. Continue with supplementation.. Discharge Plan: LTAC Plan to discharge in: 24 Hours - Advance Directives Does patient have a Living Will: No Does patient have a Durable POA for Healthcare: No - Code Status/Comfort Care Code Status: Full Code Critical Care: No Time Spent Managing PTS Care (In Minutes): 55
[2020-12-17] MEDS: ONDANSETRON 4 MG/2 ML VIAL IV PRN ×2 (08:45→18:37)
[2020-12-17] MEDS: HALOPERIDOL LACT 5 MG/ML INJ IV PRN ×2 (08:46→15:47)
[2020-12-17] MEDS: MULTIVITAMINS 5 ML ORAL SYR FT SCH (08:48)
[2020-12-17] MEDS: MEDIHONEY 44 ML TOPICAL TUBE TOP SCH (08:49)
[2020-12-17] MEDS: clonazePAM 0.5 MG TAB PO SCH ×3 (08:49→23:50)
[2020-12-17] MEDS: MIDODRINE HCL 5 MG TABLET PO SCH ×3 (08:49→23:49)
[2020-12-17] MEDS: THIAMINE HCL 100 MG TABLET FT SCH (08:49)
[2020-12-17] MEDS: GABAPENTIN 100 MG CAP FT SCH ×3 (08:49→23:49)
[2020-12-17] MEDS: RISPERIDONE 1 MG TABLET FT SCH ×2 (08:49→23:49)
[2020-12-17] MEDS: VENLAFAXINE HCL 37.5 MG TAB PO SCH (08:49)
[2020-12-17] MEDS: FOLIC ACID 1 MG TABLET FT SCH (08:49)
[2020-12-17] MEDS: JEVITY 1.2 CAL LIQUID 1,000 ML BOT FT SCH ×4 (08:50→21:00)
--- NOTE | 2020-12-17 09:55 | P.PN ---
Subjective Date of Service: 12/17/20 Primary Care Provider: none Chief Complaint: Debility, achalasia, sacral decubitus Patient seen and examined at bedside. States he has all over pain that he rates a 7/10, he denies N/V/D. Continue vanco for 6 weeks from start date for osteomyelitis. Tolerating antibiotic well. Afebrile with a Tmax of 97.7. Review of Systems 10-point ROS is otherwise unremarkable Physical Examination - Vital Signs Temperature: 97.7 F Blood Pressure: 101/66 Pulse: 99 Respirations: 16 Pulse Ox (%): 98 - Physical Exam Other Physical/Emotional Findings: General: Alert, In no apparent distress, Cachectic, Other (severe malnutrition ). HEENT: Atraumatic, Normocephalic, PERRLA. Neck: Supple, 2+ carotid pulse no bruit, JVD not distended, No Thyromegaly. Respiratory: Clear to auscultation bilaterally, Normal air movement. Cardiovascular: No edema, Normal pulses, Regular rate/rhythm. Capillary refill: <2 Seconds. Gastrointestinal: Normal bowel sounds, Soft and benign, W/out succussion splash. Musculoskeletal: Other (diffuse muscle wasting ). Integumentary: Other (sacral stage 4 wound-healing. Base of wound shows granulation and epithelization tissue. No drainage from wound bed. Periwound tissue is clean, dry, intact with no signs of acute infection. ). Urinary: Baltazar catheter - Studies Laboratory Last Values WBC 5.30 K/uL (4.3-10.9) 11/27/20 21:00 RBC 2.85 M/uL (4.33-5.43) L 11/27/20 21:00 Hgb 8.8 g/dL (13.6-17.9) L 11/27/20 21:00 Hct 25.7 % (39.6-49.0) L 11/27/20 21:00 MCV 90.3 fL (80-100) D 11/27/20 21:00 MCH 30.8 pg (27.0-35.0) 11/27/20 21:00 MCHC 34.1 g/dL (32.0-36.0) 11/27/20 21:00 RDW 19.8 % (12.1-15.2) H 11/27/20 21:00 Plt Count 377 K/uL (152-406) 11/27/20 21:00 MPV 8.2 fL (7.6-11.3) 11/27/20 21:00 Neutrophils % 59.2 % (41.7-73.7) 11/27/20 21:00 Lymphocytes % 29.0 % (15.3-44.8) 11/27/20 21:00 Monocytes % 11.4 % (3.3-12.3) 11/27/20 21:00 Eosinophils % 0.2 % (0-4.4) 11/27/20 21:00 Basophils % 0.2 % (0-1.3) 11/27/20 21:00 Absolute Neutrophils 3.1 K/uL (1.8-8.0) 11/27/20 21:00 Absolute Lymphocytes 1.5 K/uL (0.7-4.9) 11/27/20 21:00 Absolute Monocytes 0.6 K/uL (0.1-1.3) 11/27/20 21:00 Absolute Eosinophils 0.0 K/uL (0-0.5) 11/27/20 21:00 Absolute Basophils 0.0 K/uL (0-0.5) 11/27/20 21:00 PT 11.8 SECONDS (9.5-12.5) 11/27/20 21:00 INR 1.03 11/27/20 21:00 Sodium 141 mmol/L (136-145) 11/27/20 21:00 Potassium 4.5 mmol/L (3.5-5.1) 11/27/20 21:00 Chloride 106 mmol/L (98-107) 11/27/20 21:00 Carbon Dioxide 33 mmol/L (21-32) H 11/27/20 21:00 BUN 8 mg/dL (7-18) 11/27/20 21:00 Creatinine < 0.15 mg/dL (0.55-1.3) L 11/27/20 21:00 Estimated GFR > 90 mL/min (=/>90) 11/27/20 21:00 Glucose 86 mg/dL (74-106) 11/27/20 21:00 Lactic Acid 1.7 mmol/L (0.4-2.0) 02/04/21 21:00 Calcium 7.5 mg/dL (8.5-10.1) L 11/27/20 21:00 Magnesium 2.1 mg/dL (1.8-2.4) 11/27/20 21:00 Total Bilirubin 0.2 mg/dL (0.2-1.0) 11/27/20 21:00 Direct Bilirubin < 0.1 mg/dL (0-0.2) 11/27/20 21:00 AST 19 U/L (15-37) 11/27/20 21:00 ALT 21 U/L (12-78) 11/27/20 21:00 Alkaline Phosphatase 120 U/L (45-117) H 11/27/20 21:00 Rapid Troponin I < 0.02 ng/mL (0.0-0.045) 11/27/20 21:00 NT-Pro-B Natriuret Pep 196 pg/mL (<125) H 11/27/20 21:00 Serum Total Protein 5.6 g/dL (6.4-8.2) L 11/27/20 21:00 Albumin 1.4 g/dL (3.4-5.0) L 11/27/20 21:00 Globulin 4.2 g/dL (2.3-3.5) H 11/27/20 21:00 Albumin/Globulin Ratio 0.3 (1.1-1.8) L 11/27/20 21:00 SARS-CoV-2 RNA (RT-PCR) Negative (NEGATIVE) 11/27/20 22:24 ABO/Rh AB POSITIVE 11/27/20 21:00 Solid Phase Ab Screen Negative 11/27/20 21:00 Medications List Reviewed: Yes Assessment And Plan - Plan Assessment 1.Sacral coccyx stage IV wound. 2.Severe malnourished. 3.Diabetes mellitus 4. anemia of chronic disease associated with malnourished. . Plan: 1. medihoney, silver alginate, cover with foam qMWF. CT Pelvis could not rule out osteomyelitis-continue vanco for 6 weeks from start date (12/11). Will mo nitor renal function closely. Dose adjusted via pharmacy. 2. Continue nutrition as the patient needed for healing of his wounds. 3. medical management per primary team. -We will continue to monitor CBC-BMP, monitor for signs of infection. We will follow closely Plan of care discussed with Dr. Sosa. Thank you Dr. Hernández for consult.
[2020-12-17] MEDS: VANCOMYCIN 750 MG in NA CHLORIDE 0.9% 250 ML IVPB SCH ×2 (11:00→23:49)
--- NOTE | 2020-12-17 14:52 | CON ---
Type Of Service: Psychiatric consult. Reason For Consult: Evaluation of depression and medication recommendation. History Of Present Illness: Mr. Ancelmo Reyes is a 35-year-old male with psychiatric history of Schizophrenia and bipolar disorder. The patient was admitted to medical floor on November 28, 2020 via ER on account of severe Oesophageal Achalasia and inability to care for himself post PEG tube insertion. Patient leaves with is parent who are current incapable of caring for him due to both of them suffering a recent CVA. On interview patient expressed frustration about his condition and admitted to be depressed over is in ability to eat which has lead to severe malnutrition and his ability to care for himself which has lead to be bedridden. Patient however denies suicidal and homicidal ideation. No history of psychosis but admit to mild to moderate anxiety symptoms with no associated panic attacks. Objective: Vital Signs: Blood pressure 95/54, temp is 97.5, pulse rate is 71, respiratory rate is 18. O2 sat on room air is 96 General: On admission, the patient is clinically ill-looking, severely malnourished black male with poor hygiene and grooming. He is oriented to person and place, and time. Fully cooperative with interview. Speech is spontaneous, at times loud. No preservation observed. Mild psychomotor agitation observed. Mood is described as depressed and frustrated. Affect is mood congruent. Thought process liner, at times circumstantial and no flight of ideas. Thought content: He denies suicidal or homicidal ideation. No delusional thoughts. No rumination observed. No auditory or visual hallucinations elicited. The patient is internally preoccupied. Insight, judgement, impulse control limited to fair. Fund of knowledge average. Language skills fair. Diagnoses: Major depressive disorder, unspecified Anxiety disorder unspecified Bipolar disorder Schizophrenia . Plan: Recommend Effexor 37.5 mg PO daily for depression and anxiety Recommend Mirtazapine 15 mg PO daily at bedtime for sleep. Discussed recommendation with treatment team. PARKER/BO Voice ID: [id number] Report ID: [id number]
[2020-12-17] MEDS: MIRTAZAPINE 15 MG TAB PO SCH (23:49)
[2020-12-18] MEDS: RISPERIDONE 1 MG TABLET FT SCH ×2 (08:20→21:00)
[2020-12-18] MEDS: GABAPENTIN 100 MG CAP FT SCH ×3 (08:20→21:00)
[2020-12-18] MEDS: HYDROCOD 2.5mg-ACETAMIN 108mg/5mL Soln PO PRN ×2 (08:21→13:20)
[2020-12-18] MEDS: FOLIC ACID 1 MG TABLET FT SCH (08:21)
[2020-12-18] MEDS: clonazePAM 0.5 MG TAB PO SCH ×3 (08:21→21:00)
[2020-12-18] MEDS: ONDANSETRON 4 MG/2 ML VIAL IV PRN (08:21)
[2020-12-18] MEDS: MULTIVITAMINS 5 ML ORAL SYR FT SCH (08:22)
[2020-12-18] MEDS: VENLAFAXINE HCL 37.5 MG TAB PO SCH (08:22)
[2020-12-18] MEDS: THIAMINE HCL 100 MG TABLET FT SCH (08:22)
[2020-12-18] MEDS: MEDIHONEY 44 ML TOPICAL TUBE TOP SCH (08:23)
[2020-12-18] MEDS: JEVITY 1.2 CAL LIQUID 1,000 ML BOT FT SCH ×4 (08:24→22:00)
--- NOTE | 2020-12-18 08:38 | P.PN ---
Subjective Date of Service: 12/18/20 Chief Complaint: Debility, achalasia, sacral decubitus Subjective: No new changes, Doing well Patient doing well this morning. Reports pain at ulcer site. Review of Systems 10-point ROS is otherwise unremarkable Musculoskeletal: Back Pain Physical Examination - Vital Signs Temperature: 97.9 F Blood Pressure: 93/60 Pulse: 79 Respirations: 18 Pulse Ox (%): 100 - Physical Exam General: Alert, In no apparent distress, Oriented x3, Cooperative, Cachectic HEENT: Atraumatic, Normocephalic, PERRLA, Mucous membr. moist/pink, EOMI Neck: 2+ carotid pulse no bruit, JVD not distended, No Thyromegaly, No LAD Respiratory: Clear to auscultation bilaterally, Normal air movement Cardiovascular: No edema, Normal pulses, Regular rate/rhythm, Normal S1 S2, No gallops, No rubs, No murmurs Capillary refill: <2 Seconds Gastrointestinal: Normal bowel sounds, Soft and benign, Non-distended, No ascites, No tenderness, No masses, No rebound, No guarding, Other (peg tube site cleaned, needs to be redressed) Musculoskeletal: No clubbing, No swelling, No contractures, No erythema, No tenderness, No warmth ( ) Integumentary: No rashes, No cyanosis, Skin breakdown, Pressure ulcer Neurological: Normal speech, Sensation intact, Normal affect, Abnormal gait, Abnormal strength Lymphatics: No axilla or inguinal lymphadenopathy Other Physical/Emotional Findings: General: Alert, In no apparent distress, Cachectic, Other (severe malnutrition ). HEENT: Atraumatic, Normocephalic, PERRLA. Neck: Supple, 2+ carotid pulse no bruit, JVD not distended, No Thyromegaly. Respiratory: Clear to auscultation bilaterally, Normal air movement. Cardiovascular: No edema, Normal pulses, Regular rate/rhythm. Capillary refill: <2 Seconds. Gastrointestinal: Normal bowel sounds, Soft and benign, W/out succussion splash. Musculoskeletal: Other (diffuse muscle wasting ). Integumentary: Other (sacral stage 4 wound-healing. Base of wound shows granulation and epithelization tissue. No drainage from wound bed. Periwound tissue is clean, dry, intact with no signs of acute infection. ). Urinary: Baltazar catheter - Studies Medications List Reviewed: Yes Assessment & Plan - Problems (Diagnosis) (1) Malnutrition Current Visit: Yes Status: Chronic Qualifiers: Malnutrition type: unspecified type Qualified Code(s): E46 - Unspecified protein-calorie malnutrition (2) S/P percutaneous endoscopic gastrostomy (PEG) tube placement Current Visit: Yes Status: Chronic (3) Sacral decubitus ulcer, stage IV Current Visit: Yes Status: Acute (4) Achalasia Current Visit: Yes Status: Chronic (5) Bipolar 1 disorder Current Visit: Yes Status: Chronic (6) Schizophrenia Current Visit: Yes Status: Chronic Qualifiers: Schizophrenia type: unspecified Qualified Code(s): F20.9 - Schizophrenia, unspecified - Plan Severe malnutrition secondary to achalasia with PEG tube: Patient overall stable. Continue with PEG tube feeds. Continue to have dietary monitor and adjust medication for better nutrition. Continue Midodrine. Blood pressure stable on medication. Continuing to await placement, family is working on [employer] to transfer Mr. Ag to a facility. Large left hip decubitus stage 4: Followed by wound care: mahnaz corbin, cover with foam qMWF. CT pelvis could not r/o osteomyelitis. Continue vancomycin for 6 weeks from 12/11. ID will continue to follow to monitor renal function. History of Diabetes mellitus type 2: Hemoglobin A1c 5.2. Encourage oral intake. Dietary may need to adjust PEG tube feeds. Bipolar disorder/schizophrenia: Continue current medication. Psych consulted. Mentation stable. Anemia of chronic disease: Stable. Continue with supplementation.. - Advance Directives Does patient have a Living Will: No Does patient have a Durable POA for Healthcare: No - Code Status/Comfort Care Code Status: Full Code
[2020-12-18] MEDS: MIDODRINE HCL 5 MG TABLET PO SCH ×3 (09:00→20:23)
[2020-12-18] MEDS: VANCOMYCIN 750 MG in NA CHLORIDE 0.9% 250 ML IVPB SCH ×2 (11:32→22:02)
[2020-12-18] MEDS ORDERED: NA CHLORIDE 0.9% 500 ML IV ONE ×2 (18:37→19:47)
[2020-12-18] MEDS ORDERED: NA CHLORIDE 0.9% 500 ML ONE (20:08)
[2020-12-18] MEDS: MIRTAZAPINE 15 MG TAB PO SCH (21:00)
[2020-12-19] MEDS: HYDROCOD 2.5mg-ACETAMIN 108mg/5mL Soln PO PRN ×3 (00:18→17:07)
[2020-12-19] MEDS: ONDANSETRON 4 MG/2 ML VIAL IV PRN (08:58)
[2020-12-19] MEDS: GABAPENTIN 100 MG CAP FT SCH ×3 (08:58→20:19)
[2020-12-19] MEDS: RISPERIDONE 1 MG TABLET FT SCH ×2 (09:00→20:19)
[2020-12-19] MEDS: clonazePAM 0.5 MG TAB PO SCH ×3 (09:00→20:21)
[2020-12-19] MEDS: FOLIC ACID 1 MG TABLET FT SCH (09:00)
[2020-12-19] MEDS: MULTIVITAMINS 5 ML ORAL SYR FT SCH (09:01)
[2020-12-19] MEDS: VENLAFAXINE HCL 37.5 MG TAB PO SCH (09:01)
[2020-12-19] MEDS: MEDIHONEY 44 ML TOPICAL TUBE TOP SCH (09:02)
[2020-12-19] MEDS: JEVITY 1.2 CAL LIQUID 1,000 ML BOT FT SCH ×4 (09:03→20:23)
[2020-12-19] MEDS: THIAMINE HCL 100 MG TABLET FT SCH (09:03)
[2020-12-19] MEDS: MIDODRINE HCL 5 MG TABLET PO SCH ×3 (09:08→20:20)
--- NOTE | 2020-12-19 10:37 | P.PN ---
Subjective Date of Service: 12/19/20 Primary Care Provider: none Chief Complaint: Debility, achalasia, sacral decubitus Patient seen and examined at bedside. States he is having pain from sacral wound site. He remains afebrile with normal vital signs. Review of Systems 10-point ROS is otherwise unremarkable Physical Examination - Vital Signs Temperature: 98.5 F Blood Pressure: 102/69 Pulse: 708 Respirations: 18 Pulse Ox (%): 96 - Physical Exam Other Physical/Emotional Findings: General: Alert, In no apparent distress, Cachectic, Other (severe malnutrition ). HEENT: Atraumatic, Normocephalic, PERRLA. Neck: Supple, 2+ carotid pulse no bruit, JVD not distended, No Thyromegaly. Respiratory: Clear to auscultation bilaterally, Normal air movement. Cardiovascular: No edema, Normal pulses, Regular rate/rhythm. Capillary refill: <2 Seconds. Gastrointestinal: Normal bowel sounds, Soft and benign, PEG tube placed. Musculoskeletal: Other (diffuse muscle wasting ). Integumentary: Other (sacral stage 4 wound-healing. Base of wound shows granulation and epithelization tissue. No drainage from wound bed. Periwound tissue is clean, dry, intact with no signs of acute infection. ). Urinary: Baltazar catheter - Studies Laboratory Last Values WBC 5.30 K/uL (4.3-10.9) 11/27/20 21:00 RBC 2.85 M/uL (4.33-5.43) L 11/27/20 21:00 Hgb 8.8 g/dL (13.6-17.9) L 11/27/20 21:00 Hct 25.7 % (39.6-49.0) L 11/27/20 21:00 MCV 90.3 fL (80-100) D 11/27/20 21:00 MCH 30.8 pg (27.0-35.0) 11/27/20 21:00 MCHC 34.1 g/dL (32.0-36.0) 11/27/20 21:00 RDW 19.8 % (12.1-15.2) H 11/27/20 21:00 Plt Count 377 K/uL (152-406) 11/27/20 21:00 MPV 8.2 fL (7.6-11.3) 11/27/20 21:00 Neutrophils % 59.2 % (41.7-73.7) 11/27/20 21:00 Lymphocytes % 29.0 % (15.3-44.8) 11/27/20 21:00 Monocytes % 11.4 % (3.3-12.3) 11/27/20 21:00 Eosinophils % 0.2 % (0-4.4) 11/27/20 21:00 Basophils % 0.2 % (0-1.3) 11/27/20 21:00 Absolute Neutrophils 3.1 K/uL (1.8-8.0) 11/27/20 21:00 Absolute Lymphocytes 1.5 K/uL (0.7-4.9) 11/27/20 21:00 Absolute Monocytes 0.6 K/uL (0.1-1.3) 11/27/20 21:00 Absolute Eosinophils 0.0 K/uL (0-0.5) 11/27/20 21:00 Absolute Basophils 0.0 K/uL (0-0.5) 11/27/20 21:00 PT 11.8 SECONDS (9.5-12.5) 11/27/20 21:00 INR 1.03 11/27/20 21:00 Sodium 141 mmol/L (136-145) 11/27/20 21:00 Potassium 4.5 mmol/L (3.5-5.1) 11/27/20 21:00 Chloride 106 mmol/L (98-107) 11/27/20 21:00 Carbon Dioxide 33 mmol/L (21-32) H 11/27/20 21:00 BUN 8 mg/dL (7-18) 11/27/20 21:00 Creatinine < 0.15 mg/dL (0.55-1.3) L 11/27/20 21:00 Estimated GFR > 90 mL/min (=/>90) 11/27/20 21:00 Glucose 86 mg/dL (74-106) 11/27/20 21:00 Lactic Acid 1.7 mmol/L (0.4-2.0) 11/27/20 21:00 Calcium 7.5 mg/dL (8.5-10.1) L 11/27/20 21:00 Magnesium 2.1 mg/dL (1.8-2.4) 11/27/20 21:00 Total Bilirubin 0.2 mg/dL (0.2-1.0) 11/27/20 21:00 Direct Bilirubin < 0.1 mg/dL (0-0.2) 11/27/20 21:00 AST 19 U/L (15-37) 11/27/20 21:00 ALT 21 U/L (12-78) 11/27/20 21:00 Alkaline Phosphatase 120 U/L (45-117) H 11/27/20 21:00 Rapid Troponin I < 0.02 ng/mL (0.0-0.045) 11/27/20 21:00 NT-Pro-B Natriuret Pep 196 pg/mL (<125) H 11/27/20 21:00 Serum Total Protein 5.6 g/dL (6.4-8.2) L 11/27/20 21:00 Albumin 1.4 g/dL (3.4-5.0) L 11/27/20 21:00 Globulin 4.2 g/dL (2.3-3.5) H 11/27/20 21:00 Albumin/Globulin Ratio 0.3 (1.1-1.8) L 11/27/20 21:00 SARS-CoV-2 RNA (RT-PCR) Negative (NEGATIVE) 11/27/20 22:24 ABO/Rh AB POSITIVE 11/27/20 21:00 Solid Phase Ab Screen Negative 11/27/20 21:00 Medications List Reviewed: Yes Assessment And Plan - Plan Assessment 1.Sacral coccyx stage IV wound. 2.Severe malnourished. 3.Diabetes mellitus 4. anemia of chronic disease associated with malnourished. . Plan: 1. medihoney, silver alginate, cover with foam qMWF. CT Pelvis could not rule out osteomyelitis-continue vanco for 6 weeks from start date (12/11) end (01/15). Will monitor renal function closely. Dose adjusted via pharmacy. 2. Continue nutrition as the patient needed for healing of his wounds. 3. medical management per primary team. -We will continue to monitor CBC-BMP, monitor for signs of infection. We will follow closely Plan of care discussed with Dr. Sosa. Thank you Dr. Hernández for consult.
--- NOTE | 2020-12-19 11:02 | P.PN ---
Subjective Date of Service: 12/19/20 Primary Care Provider: none Chief Complaint: Debility, achalasia, sacral decubitus Subjective: No new changes, Improving, Doing well Patient is doing well this morning. Eating well. No complaints. Review of Systems General: Unremarkable Eyes: Unremarkable ENT: Unremarkable Respiratory: Unremarkable Cardiovascular: Unremarkable Gastrointestinal: Unremarkable Genitourinary: Unremarkable Musculoskeletal: Back Pain, As per HPI (due to sacral pressure ulcer ) Integumentary: Unremarkable Neurological: Unremarkable Lymphatics: Unremarkable Physical Examination - Vital Signs Temperature: 98.5 F Blood Pressure: 102/69 Pulse: 708 Respirations: 18 Pulse Ox (%): 96 - Physical Exam General: Alert, In no apparent distress, Cooperative, Cachectic HEENT: Atraumatic, Normocephalic, PERRLA, Mucous membr. moist/pink, EOMI, Sclerae nonicteric Neck: Supple, 2+ carotid pulse no bruit, JVD not distended, No Thyromegaly, No LAD Respiratory: Clear to auscultation bilaterally, Normal air movement Cardiovascular: No edema, Normal pulses, Regular rate/rhythm, Normal S1 S2, No gallops, No rubs, No murmurs Capillary refill: <2 Seconds Gastrointestinal: Normal bowel sounds, Soft and benign, Non-distended, No ascites, No tenderness, No masses, No rebound, No guarding, Other (peg tube site redressed) Musculoskeletal: No clubbing, No swelling, No contractures, No erythema, No tenderness, No warmth Integumentary: Rash(es), Skin breakdown, Tenderness/swelling, Pressure ulcer, Other (pressure ulcer with granulation tissue, no purulent drainage or bleeding. will be redressed today.) Neurological: Normal speech, Normal tone, Sensation intact, Cranial nerves 3-12 intact, Normal affect Lymphatics: No axilla or inguinal lymphadenopathy Other Physical/Emotional Findings: General: Alert, In no apparent distress, Cachectic, Other (severe malnutrition ). HEENT: Atraumatic, Normocephalic, PERRLA. Neck: Supple, 2+ carotid pulse no bruit, JVD not distended, No Thyromegaly. Respiratory: Clear to auscultation bilaterally, Normal air movement. Cardiovascular: No edema, Normal pulses, Regular rate/rhythm. Capillary refill: <2 Seconds. Gastrointestinal: Normal bowel sounds, Soft and benign, PEG tube placed. Musculoskeletal: Other (diffuse muscle wasting ). Integumentary: Other (sacral stage 4 wound-healing. Base of wound shows granulation and epithelization tissue. No drainage from wound bed. Periwound tissue is clean, dry, intact with no signs of acute infection. ). Urinary: Baltazar catheter - Studies Medications List Reviewed: Yes Assessment And Plan - Plan Severe malnutrition secondary to achalasia with PEG tube: Patient overall stable. Continue with PEG tube feeds. Continue to have dietary monitor and adjust medication for better nutrition. Continue Midodrine. Blood pressure was low overnight and patient received 500 cc bolus. BP now 103/68. Continue to monitor. Continuing to await placement, family is working on paperwork to transfer Mr. Ag to a facility. Large left hip decubitus stage 4: Followed by wound care. CT pelvis could not r/o osteomyelitis. Continue vancomycin for 6 weeks from 12/11. ID will continue to follow. History of Diabetes mellitus type 2: Hemoglobin A1c 5.2. Encourage oral intake. Dietary may need to adjust PEG tube feeds. Bipolar disorder/schizophrenia: Continue current medication. Psych consulted. Mentation stable. Anemia of chronic disease: Stable. Continue with supplementation.. Discharge Plan: LTAC Plan to discharge in: 24 Hours - Code Status/Comfort Care Code Status Assessed: Yes (full code ) Critical Care: No Time Spent Managing PTS Care (In Minutes): 55
[2020-12-19] MEDS: VANCOMYCIN 750 MG in NA CHLORIDE 0.9% 250 ML IVPB SCH ×2 (11:07→23:00)
[2020-12-19] MEDS: MIRTAZAPINE 15 MG TAB PO SCH (20:21)
[2020-12-20] MEDS: HYDROCOD 2.5mg-ACETAMIN 108mg/5mL Soln PO PRN ×2 (01:38→10:21)
[2020-12-20] MEDS: ACETAMINOPHEN 500 MG TAB FT PRN ×2 (05:14→09:01)
--- NOTE | 2020-12-20 08:38 | P.PN ---
Subjective Date of Service: 12/20/20 Primary Care Provider: none Chief Complaint: Debility, achalasia, sacral decubitus Subjective: No new changes, Tolerating diet, Improving, Doing well Patient is doing well this morning. Eating breakfast. No complaints. Review of Systems 10-point ROS is otherwise unremarkable Integumentary: Other (pain over sacral pressure ulcer) Physical Examination - Vital Signs Temperature: 97.1 F Blood Pressure: 102/65 Pulse: 78 Respirations: 18 Pulse Ox (%): 98 - Physical Exam General: Alert, In no apparent distress, Oriented x3, Cooperative, Cachectic HEENT: Atraumatic, Normocephalic, PERRLA, Mucous membr. moist/pink, EOMI, Sclerae nonicteric Neck: Supple, 2+ carotid pulse no bruit, JVD not distended, No Thyromegaly, No LAD Respiratory: Clear to auscultation bilaterally, Normal air movement Cardiovascular: No edema, Normal pulses, Regular rate/rhythm, Normal S1 S2, No gallops, No rubs, No murmurs Capillary refill: <2 Seconds Gastrointestinal: Normal bowel sounds, Soft and benign, Non-distended, No ascites, No tenderness, No masses, No rebound, No guarding, Other (peg tube site clean) Musculoskeletal: No clubbing, No swelling, No contractures, No erythema, No tenderness, No warmth Integumentary: No rashes, No breakdown, No erythema, No warmth, No cyanosis, Skin breakdown, Tenderness/swelling, Pressure ulcer Neurological: Normal speech, Sensation intact, Normal affect Lymphatics: No axilla or inguinal lymphadenopathy Other Physical/Emotional Findings: General: Alert, In no apparent distress, Cachectic, Other (severe malnutrition ). HEENT: Atraumatic, Normocephalic, PERRLA. Neck: Supple, 2+ carotid pulse no bruit, JVD not distended, No Thyromegaly. Respiratory: Clear to auscultation bilaterally, Normal air movement. Cardiovascular: No edema, Normal pulses, Regular rate/rhythm. Capillary refill: <2 Seconds. Gastrointestinal: Normal bowel sounds, Soft and benign, PEG tube placed. Musculoskeletal: Other (diffuse muscle wasting ). Integumentary: Other (sacral stage 4 wound-healing. Base of wound shows granulation and epithelization tissue. No drainage from wound bed. Periwound tissue is clean, dry, intact with no signs of acute infection. ). Urinary: Baltazar catheter - Studies Medications List Reviewed: Yes Assessment And Plan - Plan Severe malnutrition secondary to achalasia with PEG tube: Patient overall stable. Continue with PEG tube feeds. Continue to have dietary monitor and adjust medication for better nutrition. BP stable, continue midodrine. Continuing to await placement, family is working on paperwork to transfer Mr. Ag to a facility. Large left hip decubitus stage 4: Followed by wound care. CT pelvis could not r/o osteomyelitis. Continue vancomycin for 6 weeks from 12/11. ID will continue to follow. History of Diabetes mellitus type 2: Hemoglobin A1c 5.2. Encourage oral intake. Dietary may need to adjust PEG tube feeds. Bipolar disorder/schizophrenia: Continue current medication. Psych consulted. Mentation stable. Anemia of chronic disease: Stable. Continue with supplementation.. Discharge Plan: LTAC Plan to discharge in: Unknown - Code Status/Comfort Care Code Status Assessed: Yes (full code) Physician Review Additional Text: . Critical Care: No Time Spent Managing PTS Care (In Minutes): 55
[2020-12-20] MEDS: GABAPENTIN 100 MG CAP FT SCH ×3 (09:00→21:59)
[2020-12-20] MEDS: HALOPERIDOL LACT 5 MG/ML INJ IV PRN (09:01)
[2020-12-20] MEDS: FOLIC ACID 1 MG TABLET FT SCH (09:02)
[2020-12-20] MEDS: clonazePAM 0.5 MG TAB PO SCH ×3 (09:02→21:59)
[2020-12-20] MEDS: THIAMINE HCL 100 MG TABLET FT SCH (09:02)
[2020-12-20] MEDS: RISPERIDONE 1 MG TABLET FT SCH ×2 (09:03→21:59)
[2020-12-20] MEDS: LACTULOSE 20 GM/30 ML UCUP PO PRN (09:03)
[2020-12-20] MEDS ORDERED: WATER FOR INJ,STERILE 10 ML IM PRN (09:57)
[2020-12-20] MEDS ORDERED: ZIPRASIDONE MESYLA 20 MG/VIAL IM ONE (10:00)
[2020-12-20] MEDS: MIDODRINE HCL 5 MG TABLET PO SCH ×3 (10:15→21:59)
[2020-12-20] MEDS: JEVITY 1.2 CAL LIQUID 1,000 ML BOT FT SCH ×4 (10:15→22:00)
[2020-12-20] MEDS: VENLAFAXINE HCL 37.5 MG TAB PO SCH (10:15)
[2020-12-20] MEDS: MEDIHONEY 44 ML TOPICAL TUBE TOP SCH (10:16)
[2020-12-20] MEDS: MULTIVITAMINS 5 ML ORAL SYR FT SCH (10:17)
[2020-12-20] MEDS: VANCOMYCIN 750 MG in NA CHLORIDE 0.9% 250 ML IVPB SCH ×2 (10:48→22:01)
[2020-12-20] MEDS ORDERED: LORazepam 2 MG/ML VIAL IV ONE (13:00)
[2020-12-20] MEDS: MIRTAZAPINE 15 MG TAB PO SCH (21:59)
[2020-12-21] MEDS: HYDROCOD 2.5mg-ACETAMIN 108mg/5mL Soln PO PRN ×3 (02:42→19:47)
--- NOTE | 2020-12-21 08:09 | P.PN ---
Subjective Date of Service: 12/21/20 Primary Care Provider: none Chief Complaint: Debility, achalasia, sacral decubitus Subjective: No new changes Patient is doing well this morning, no complaints. Per sitter, mother came yesterday to visit patient and brought some food to feed him. Also reported patient has been resting well. Review of Systems 10-point ROS is otherwise unremarkable Physical Examination - Vital Signs Temperature: 97.3 F Blood Pressure: 95/59 Pulse: 66 Respirations: 16 Pulse Ox (%): 100 - Physical Exam General: Alert, In no apparent distress, Oriented x3, Cooperative, Cachectic HEENT: Atraumatic, Normocephalic, PERRLA, Mucous membr. moist/pink, EOMI, Sclerae nonicteric Neck: Supple, 2+ carotid pulse no bruit, JVD not distended, No Thyromegaly, No LAD Respiratory: Clear to auscultation bilaterally, Normal air movement Cardiovascular: No edema, Normal pulses, Regular rate/rhythm, Normal S1 S2, No gallops, No rubs, No murmurs Capillary refill: <2 Seconds Gastrointestinal: Normal bowel sounds, Soft and benign, Non-distended, No ascites, No tenderness, No masses, Other (peg tube well dressed) Musculoskeletal: No clubbing, No swelling, No contractures, No erythema, No tenderness, No warmth Integumentary: No rashes, No breakdown, No significant lesion, No tenderness/swelling, No erythema, No warmth, No cyanosis Neurological: Normal speech, Normal strength at 5/5 x4 extr, Normal tone, Sensation intact, Cranial nerves 3-12 intact, Normal affect Lymphatics: No axilla or inguinal lymphadenopathy Other Physical/Emotional Findings: General: Alert, In no apparent distress, Cachectic, Other (severe malnutrition ). HEENT: Atraumatic, Normocephalic, PERRLA. Neck: Supple, 2+ carotid pulse no bruit, JVD not distended, No Thyromegaly. Respiratory: Clear to auscultation bilaterally, Normal air movement. Cardiovascular: No edema, Normal pulses, Regular rate/rhythm. Capillary refill: <2 Seconds. Gastrointestinal: Normal bowel sounds, Soft and benign, PEG tube placed. Musculoskeletal: Other (diffuse muscle wasting ). Integumentary: Other (sacral stage 4 wound-healing. Base of wound shows granulation and epithelization tissue. No drainage from wound bed. Periwound tissue is clean, dry, intact with no signs of acute infection. ). Urinary: Baltazar catheter - Studies Medications List Reviewed: Yes Assessment And Plan - Plan Severe malnutrition secondary to achalasia with PEG tube: Patient overall stable. Continue with PEG tube feeds. Continue to have dietary monitor and adjust medication for better nutrition. BP stable, continue midodrine. Continuing to await placement, family is working on paperwork to transfer Mr. Ag to a facility. Large left hip decubitus stage 4: Followed by wound care. CT pelvis could not r/o osteomyelitis. Continue vancomycin for 6 weeks from 12/11 (01/22/2021). ID will continue to follow. History of Diabetes mellitus type 2: Hemoglobin A1c 5.2. Encourage oral intake. Dietary may need to adjust PEG tube feeds. Bipolar disorder/schizophrenia: Continue current medication. Psych consulted. Mentation stable. Anemia of chronic disease: Stable. Continue with supplementation.. Discharge Plan: LTAC Plan to discharge in: Unknown - Code Status/Comfort Care Code Status Assessed: Yes (full code) Critical Care: No Time Spent Managing PTS Care (In Minutes): 55
[2020-12-21] MEDS: JEVITY 1.2 CAL LIQUID 1,000 ML BOT FT SCH ×4 (09:00→20:04)
[2020-12-21] MEDS: MEDIHONEY 44 ML TOPICAL TUBE TOP SCH (09:00)
[2020-12-21] MEDS: MULTIVITAMINS 5 ML ORAL SYR FT SCH (09:05)
[2020-12-21] MEDS: MIDODRINE HCL 5 MG TABLET PO SCH ×3 (09:05→20:04)
[2020-12-21] MEDS: THIAMINE HCL 100 MG TABLET FT SCH (09:05)
[2020-12-21] MEDS: FOLIC ACID 1 MG TABLET FT SCH (09:05)
[2020-12-21] MEDS: RISPERIDONE 1 MG TABLET FT SCH ×2 (09:05→20:04)
[2020-12-21] MEDS: clonazePAM 0.5 MG TAB PO SCH ×3 (09:05→20:03)
[2020-12-21] MEDS: GABAPENTIN 100 MG CAP FT SCH ×3 (09:05→20:04)
[2020-12-21] MEDS: VENLAFAXINE HCL 37.5 MG TAB PO SCH (09:05)
[2020-12-21] MEDS: VANCOMYCIN 750 MG in NA CHLORIDE 0.9% 250 ML IVPB SCH ×2 (09:31→21:35)
[2020-12-21] MEDS: HALOPERIDOL LACT 5 MG/ML INJ IV PRN ×2 (10:48→19:47)
[2020-12-21] MEDS ORDERED: LORazepam 2 MG/ML VIAL IV ONE (13:56)
[2020-12-21] MEDS: MIRTAZAPINE 15 MG TAB PO SCH (20:04)
--- NOTE | 2020-12-22 02:57 | P.PN ---
Date of Service: 12/07/20 Subjective Patient with no new complaints. Patient symptoms are improved. Review of Systems 10-point ROS is otherwise unremarkable Physical Examination - Vital Signs Reviewed - Physical Exam General: Alert, In no apparent distress, Oriented x3 Respiratory: Clear to auscultation bilaterally, Normal air movement Cardiovascular: Regular rate/rhythm, Normal S1 S2, No murmurs Gastrointestinal: Normal bowel sounds, Soft and benign, Non-distended, No tenderness Musculoskeletal: No clubbing, No swelling, No tenderness Neurological: Sensation intact, Cranial nerves 3-12 intact Assessment & Plan - Problems (Diagnosis) (1) Malnutrition Current Visit: Yes Status: Acute (2) S/P percutaneous endoscopic gastrostomy (PEG) tube placement Current Visit: Yes Status: Acute (3) Sacral decubitus ulcer, stage IV Current Visit: Yes Status: Acute (4) Achalasia Current Visit: Yes Status: Acute (5) Bipolar 1 disorder Current Visit: Yes Status: Acute (6) Schizophrenia Current Visit: Yes Status: Acute - Plan 1. Continue with IV antibiotic; will change to oral antibiotics 2. Continue with local wound care 3. Awaiting placement 4. Continue tube feedings 5. Monitor CBC 6. Protein supplementation as necessary 7. Pain control 8. Appreciate psychiatric evaluation and antipsychotics per their recommendation; will adjust dosage as needed 9. GI and DVT prophylaxis
[2020-12-22] MEDS: HYDROCOD 2.5mg-ACETAMIN 108mg/5mL Soln PO PRN ×2 (06:31→13:07)
[2020-12-22] MEDS: HALOPERIDOL LACT 5 MG/ML INJ IV PRN ×2 (07:47→11:38)
[2020-12-22] MEDS: MEDIHONEY 44 ML TOPICAL TUBE TOP SCH (09:00)
[2020-12-22] MEDS: VENLAFAXINE HCL 37.5 MG TAB PO SCH (09:25)
[2020-12-22] MEDS: LACTULOSE 20 GM/30 ML UCUP PO PRN (09:26)
[2020-12-22] MEDS: GABAPENTIN 100 MG CAP FT SCH ×3 (09:26→21:58)
[2020-12-22] MEDS: MIDODRINE HCL 5 MG TABLET PO SCH ×3 (09:26→21:59)
[2020-12-22] MEDS: MULTIVITAMINS 5 ML ORAL SYR FT SCH (09:26)
[2020-12-22] MEDS: FOLIC ACID 1 MG TABLET FT SCH (09:26)
[2020-12-22] MEDS: clonazePAM 0.5 MG TAB PO SCH ×3 (09:26→21:58)
[2020-12-22] MEDS: RISPERIDONE 1 MG TABLET FT SCH ×2 (09:26→21:58)
[2020-12-22] MEDS: THIAMINE HCL 100 MG TABLET FT SCH (09:26)
[2020-12-22] MEDS: JEVITY 1.2 CAL LIQUID 1,000 ML BOT FT SCH ×4 (09:27→21:00)
--- NOTE | 2020-12-22 09:46 | P.PN ---
Subjective Date of Service: 12/22/20 Primary Care Provider: none Chief Complaint: Debility, achalasia, sacral decubitus Patient seen and examined at bedside. Complains of pain form sacral wound- advised patient to offload the wound and avoid direct pressure. Afebrile with a Tmax of 97.7. Review of Systems 10-point ROS is otherwise unremarkable Physical Examination - Vital Signs Temperature: 97.7 F Blood Pressure: 90/51 Pulse: 90 Respirations: 16 Pulse Ox (%): 100 - Physical Exam Other Physical/Emotional Findings: General: Alert, In no apparent distress, Cachectic, Other (severe malnutrition ). HEENT: Atraumatic, Normocephalic, PERRLA. Neck: Supple, 2+ carotid pulse no bruit, JVD not distended, No Thyromegaly. Respiratory: Clear to auscultation bilaterally, Normal air movement. Cardiovascular: No edema, Normal pulses, Regular rate/rhythm. Capillary refill: <2 Seconds. Gastrointestinal: Normal bowel sounds, Soft and benign, PEG tube placed. Musculoskeletal: Other (diffuse muscle wasting ). Integumentary: Other (sacral stage 4 wound-healing. Base of wound shows granulation and epithelization tissue. No drainage from wound bed. Periwound tissue is clean, dry, intact with no signs of acute infection. ). Urinary: Baltazar catheter - Studies Laboratory Last Values WBC 5.30 K/uL (4.3-10.9) 11/27/20 21:00 RBC 2.85 M/uL (4.33-5.43) L 11/27/20 21:00 Hgb 8.8 g/dL (13.6-17.9) L 11/27/20 21:00 Hct 25.7 % (39.6-49.0) L 11/27/20 21:00 MCV 90.3 fL (80-100) D 11/27/20 21:00 MCH 30.8 pg (27.0-35.0) 11/27/20 21:00 MCHC 34.1 g/dL (32.0-36.0) 11/27/20 21:00 RDW 19.8 % (12.1-15.2) H 11/27/20 21:00 Plt Count 377 K/uL (152-406) 11/27/20 21:00 MPV 8.2 fL (7.6-11.3) 11/27/20 21:00 Neutrophils % 59.2 % (41.7-73.7) 11/27/20 21:00 Lymphocytes % 29.0 % (15.3-44.8) 11/27/20 21:00 Monocytes % 11.4 % (3.3-12.3) 11/27/20 21:00 Eosinophils % 0.2 % (0-4.4) 11/27/20 21:00 Basophils % 0.2 % (0-1.3) 11/27/20 21:00 Absolute Neutrophils 3.1 K/uL (1.8-8.0) 11/27/20 21:00 Absolute Lymphocytes 1.5 K/uL (0.7-4.9) 11/27/20 21:00 Absolute Monocytes 0.6 K/uL (0.1-1.3) 11/27/20 21:00 Absolute Eosinophils 0.0 K/uL (0-0.5) 11/27/20 21:00 Absolute Basophils 0.0 K/uL (0-0.5) 11/27/20 21:00 PT 11.8 SECONDS (9.5-12.5) 11/27/20 21:00 INR 1.03 11/27/20 21:00 Sodium 141 mmol/L (136-145) 11/27/20 21:00 Potassium 4.5 mmol/L (3.5-5.1) 11/27/20 21:00 Chloride 106 mmol/L (98-107) 11/27/20 21:00 Carbon Dioxide 33 mmol/L (21-32) H 11/27/20 21:00 BUN 8 mg/dL (7-18) 11/27/20 21:00 Creatinine < 0.15 mg/dL (0.55-1.3) L 11/27/20 21:00 Estimated GFR > 90 mL/min (=/>90) 11/27/20 21:00 Glucose 86 mg/dL (74-106) 11/27/20 21:00 Lactic Acid 1.7 mmol/L (0.4-2.0) 11/27/20 21:00 Calcium 7.5 mg/dL (8.5-10.1) L 02/04/21 21:00 Magnesium 2.1 mg/dL (1.8-2.4) 11/27/20 21:00 Total Bilirubin 0.2 mg/dL (0.2-1.0) 11/27/20 21:00 Direct Bilirubin < 0.1 mg/dL (0-0.2) 11/27/20 21:00 AST 19 U/L (15-37) 11/27/20 21:00 ALT 21 U/L (12-78) 11/27/20 21:00 Alkaline Phosphatase 120 U/L (45-117) H 11/27/20 21:00 Rapid Troponin I < 0.02 ng/mL (0.0-0.045) 11/27/20 21:00 NT-Pro-B Natriuret Pep 196 pg/mL (<125) H 11/27/20 21:00 Serum Total Protein 5.6 g/dL (6.4-8.2) L 11/27/20 21:00 Albumin 1.4 g/dL (3.4-5.0) L 11/27/20 21:00 Globulin 4.2 g/dL (2.3-3.5) H 11/27/20 21:00 Albumin/Globulin Ratio 0.3 (1.1-1.8) L 11/27/20 21:00 SARS-CoV-2 RNA (RT-PCR) Negative (NEGATIVE) 11/27/20 22:24 ABO/Rh AB POSITIVE 11/27/20 21:00 Solid Phase Ab Screen Negative 11/27/20 21:00 Medications List Reviewed: Yes Assessment And Plan - Plan Assessment 1.Sacral coccyx stage IV wound. 2.Severe malnourished. 3.Diabetes mellitus 4. anemia of chronic disease associated with malnourished. . Plan: 1. medihoney, silver alginate, cover with foam qMWF. CT Pelvis could not rule out osteomyelitis-continue vanco for 6 weeks from start date (12/11) end (01/15). Will monitor renal function closely. Dose adjusted via pharmacy. 2. Continue nutrition as the patient needed for healing of his wounds. 3. medical management per primary team. -We will continue to monitor CBC-BMP, monitor for signs of infection. We will follow closely Plan of care discussed with Dr. Sosa. Thank you Dr. Hernández for consult.
[2020-12-22] MEDS: VANCOMYCIN 750 MG in NA CHLORIDE 0.9% 250 ML IVPB SCH ×2 (10:13→21:59)
[2020-12-22] MEDS: ACETAMINOPHEN 500 MG TAB FT PRN (11:38)
--- NOTE | 2020-12-22 13:59 | P.PN ---
Subjective Date of Service: 12/22/20 Primary Care Provider: none Chief Complaint: Debility, achalasia, sacral decubitus Subjective: Doing well Physical Examination - Vital Signs Temperature: 98.3 F Blood Pressure: 92/57 Pulse: 111 Respirations: 15 Pulse Ox (%): 100 - Physical Exam Other Physical/Emotional Findings: General: Alert, In no apparent distress, Cachectic, Other (severe malnutrition ). HEENT: Atraumatic, Normocephalic, PERRLA. Neck: Supple, 2+ carotid pulse no bruit, JVD not distended, No Thyromegaly. Respiratory: Clear to auscultation bilaterally, Normal air movement. Cardiovascular: No edema, Normal pulses, Regular rate/rhythm. Capillary refill: <2 Seconds. Gastrointestinal: Normal bowel sounds, Soft and benign, PEG tube placed. Musculoskeletal: Other (diffuse muscle wasting ). Integumentary: Other (sacral stage 4 wound-healing. Base of wound shows granulation and epithelization tissue. No drainage from wound bed. Periwound tissue is clean, dry, intact with no signs of acute infection. ). Urinary: Baltazar catheter - Studies Medications List Reviewed: Yes Assessment & Plan Discharge Plan: [facility] Plan to discharge in: Greater than 2 days Physician Review Additional Text: Physical exam: Patient alert, cooperative. Heart: Regular rate Lungs: Clear Abdomen: Soft Extremities: Muscle wasting throughout. Impression: Debility, severe malnutrition secondary to achalasia now with PEG tube Large left hip decubitus stage 3-4 ulcer History of Diabetes mellitus type 2 Bipolar disorder/schizophrenia Anemia of chronic disease Plan Debility, severe malnutrition secondary to achalasia now with PEG tube: Continue with plan of care for placement to [facility]. Patient has filed for SSI and SSDI. Will discuss with family and public health social worker on progress. Large left hip decubitus stage 4: Wound healing consult in place. Patient remains on IV vancomycin to help with wound. Infectious Disease also consulted to address wound. Continue with wet-to-dry dressing at this time. Will discuss with infectious disease on when IV antibiotic therapy can be changed over to oral medication. History of Diabetes mellitus type 2: Hemoglobin A1c 5.2. No diabetes. Blood sugar slightly low. Encourage oral intake. Dietary may need to adjust PEG tube feeds. Bipolar disorder/schizophrenia: Continue current medication. Will discuss with psychiatry to evaluate competency and to see if medication needs to be further adjusted. Effexor added. Anemia of chronic disease: Stable. Continue with supplementation. Time Spent Managing Pts Care (In Minutes): 55
[2020-12-22] MEDS: BENZTROPINE 1 MG TAB PO SCH (21:00)
[2020-12-22] MEDS: MIRTAZAPINE 15 MG TAB PO SCH (21:58)
[2020-12-23] MEDS: HYDROCOD 2.5mg-ACETAMIN 108mg/5mL Soln PO PRN ×2 (06:43→14:15)
--- NOTE | 2020-12-23 07:14 | P.PN ---
Subjective Date of Service: 12/23/20 Primary Care Provider: none Chief Complaint: Debility, achalasia, sacral decubitus Subjective: Doing well Physical Examination - Vital Signs Temperature: 98.5 F Blood Pressure: 91/63 Pulse: 79 Respirations: 16 Pulse Ox (%): 100 - Physical Exam Other Physical/Emotional Findings: General: Alert, In no apparent distress, Cachectic, Other (severe malnutrition ). HEENT: Atraumatic, Normocephalic, PERRLA. Neck: Supple, 2+ carotid pulse no bruit, JVD not distended, No Thyromegaly. Respiratory: Clear to auscultation bilaterally, Normal air movement. Cardiovascular: No edema, Normal pulses, Regular rate/rhythm. Capillary refill: <2 Seconds. Gastrointestinal: Normal bowel sounds, Soft and benign, PEG tube placed. Musculoskeletal: Other (diffuse muscle wasting ). Integumentary: Other (sacral stage 4 wound-healing. Base of wound shows granulation and epithelization tissue. No drainage from wound bed. Periwound tissue is clean, dry, intact with no signs of acute infection. ). Urinary: Baltazar catheter - Studies Medications List Reviewed: Yes Assessment & Plan Discharge Plan: Detention Plan to discharge in: Greater than 2 days Physician Review Additional Text: Physical exam: Patient alert, cooperative. Heart: Regular rate Lungs: Clear Abdomen: Soft Extremities: Muscle wasting throughout. Impression: Debility, severe malnutrition secondary to achalasia now with PEG tube Large left hip decubitus stage 3-4 ulcer History of Diabetes mellitus type 2 Bipolar disorder/schizophrenia Anemia of chronic disease Plan Debility, severe malnutrition secondary to achalasia now with PEG tube: Jose bynum with plan of care for placement to custodial. Patient has filed for SSI and SSDI. Spoke with psychiatry yesterday. Psychiatry to evaluate overall mental status and determine competency. Will discuss with family and social services designee on evaluation by psychiatry. Large left hip decubitus stage 4: Continue wound healing. Continue IV vancomycin. End date for vancomycin will be January 15. Pharmacy to monitor and adjust appropriately. History of Diabetes mellitus type 2: Hemoglobin A1c 5.2. No diabetes. Blood sugar slightly low. Encourage oral intake. Dietary may need to adjust PEG tube feeds. Bipolar disorder/schizophrenia: Continue current medication. Psychiatry to further evaluate competency and determine if medication needs to be adjusted. Anemia of chronic disease: Stable. Continue with supplementation. Time Spent Managing Pts Care (In Minutes): 55
[2020-12-23] MEDS: VENLAFAXINE HCL 37.5 MG TAB PO SCH (08:58)
[2020-12-23] MEDS: BENZTROPINE 1 MG TAB PO SCH ×2 (08:59→21:00)
[2020-12-23] MEDS: FOLIC ACID 1 MG TABLET FT SCH (09:00)
[2020-12-23] MEDS: clonazePAM 0.5 MG TAB PO SCH ×3 (09:00→21:00)
[2020-12-23] MEDS: JEVITY 1.2 CAL LIQUID 1,000 ML BOT FT SCH ×4 (09:00→21:33)
[2020-12-23] MEDS: THIAMINE HCL 100 MG TABLET FT SCH (09:00)
[2020-12-23] MEDS: RISPERIDONE 1 MG TABLET FT SCH ×2 (09:00→21:31)
[2020-12-23] MEDS: MEDIHONEY 44 ML TOPICAL TUBE TOP SCH (09:01)
[2020-12-23] MEDS: MIDODRINE HCL 5 MG TABLET PO SCH ×3 (09:01→21:30)
[2020-12-23] MEDS: GABAPENTIN 100 MG CAP FT SCH ×3 (09:01→21:30)
[2020-12-23] MEDS: MULTIVITAMINS 5 ML ORAL SYR FT SCH (09:02)
[2020-12-23] MEDS: VANCOMYCIN 750 MG in NA CHLORIDE 0.9% 250 ML IVPB SCH ×2 (09:03→21:35)
--- NOTE | 2020-12-23 11:17 | P.PN ---
Subjective Date of Service: 12/23/20 Primary Care Provider: none Chief Complaint: Debility, achalasia, sacral decubitus Patient seen and examined at bedside. Afebrile with no leukocytosis. Review of Systems 10-point ROS is otherwise unremarkable Physical Examination - Vital Signs Temperature: 98.2 F Blood Pressure: 102/70 Pulse: 79 Respirations: 16 Pulse Ox (%): 97 - Physical Exam Other Physical/Emotional Findings: General: Alert, In no apparent distress, Cac hectic, Other (severe malnutrition ). HEENT: Atraumatic, Normocephalic, PERRLA. Neck: Supple, 2+ carotid pulse no bruit, JVD not distended, No Thyromegaly. Respiratory: Clear to auscultation bilaterally, Normal air movement. Cardiovascular: No edema, Normal pulses, Regular rate/rhythm. Capillary refill: <2 Seconds. Gastrointestinal: Normal bowel sounds, Soft and benign, PEG tube placed. Musculoskeletal: Other (diffuse muscle wasting ). Integumentary: Other (sacral stage 4 wound-healing. Base of wound shows granulation and epithelization tissue. No drainage from wound bed. Periwound tissue is clean, dry, intact with no signs of acute infection. ). Urinary: Baltazar catheter - Studies Laboratory Last Values WBC 5.30 K/uL (4.3-10.9) 11/27/20 21:00 RBC 2.85 M/uL (4.33-5.43) L 11/27/20 21:00 Hgb 8.8 g/dL (13.6-17.9) L 11/27/20 21:00 Hct 25.7 % (39.6-49.0) L 11/27/20 21:00 MCV 90.3 fL (80-100) D 11/27/20 21:00 MCH 30.8 pg (27.0-35.0) 11/27/20 21:00 MCHC 34.1 g/dL (32.0-36.0) 11/27/20 21:00 RDW 19.8 % (12.1-15.2) H 11/27/20 21:00 Plt Count 377 K/uL (152-406) 11/27/20 21:00 MPV 8.2 fL (7.6-11.3) 11/27/20 21:00 Neutrophils % 59.2 % (41.7-73.7) 11/27/20 21:00 Lymphocytes % 29.0 % (15.3-44.8) 11/27/20 21:00 Monocytes % 11.4 % (3.3-12.3) 11/27/20 21:00 Eosinophils % 0.2 % (0-4.4) 11/27/20 21:00 Basophils % 0.2 % (0-1.3) 11/27/20 21:00 Absolute Neutrophils 3.1 K/uL (1.8-8.0) 11/27/20 21:00 Absolute Lymphocytes 1.5 K/uL (0.7-4.9) 11/27/20 21:00 Absolute Monocytes 0.6 K/uL (0.1-1.3) 11/27/20 21:00 Absolute Eosinophils 0.0 K/uL (0-0.5) 11/27/20 21:00 Absolute Basophils 0.0 K/uL (0-0.5) 11/27/20 21:00 PT 11.8 SECONDS (9.5-12.5) 11/27/20 21:00 INR 1.03 11/27/20 21:00 Sodium 141 mmol/L (136-145) 11/27/20 21:00 Potassium 4.5 mmol/L (3.5-5.1) 11/27/20 21:00 Chloride 106 mmol/L (98-107) 11/27/20 21:00 Carbon Dioxide 33 mmol/L (21-32) H 11/27/20 21:00 BUN 8 mg/dL (7-18) 11/27/20 21:00 Creatinine < 0.15 mg/dL (0.55-1.3) L 11/27/20 21:00 Estimated GFR > 90 mL/min (=/>90) 11/27/20 21:00 Glucose 86 mg/dL (74-106) 11/27/20 21:00 Lactic Acid 1.7 mmol/L (0.4-2.0) 11/27/20 21:00 Calcium 7.5 mg/dL (8.5-10.1) L 11/27/20 21:00 Magnesium 2.1 mg/dL (1.8-2.4) 11/27/20 21:00 Total Bilirubin 0.2 mg/dL (0.2-1.0) 11/27/20 21:00 Direct Bilirubin < 0.1 mg/dL (0-0.2) 11/27/20 21:00 AST 19 U/L (15-37) 11/27/20 21:00 ALT 21 U/L (12-78) 11/27/20 21:00 Alkaline Phosphatase 120 U/L (45-117) H 11/27/20 21:00 Rapid Troponin I < 0.02 ng/mL (0.0-0.045) 11/27/20 21:00 NT-Pro-B Natriuret Pep 196 pg/mL (<125) H 11/27/20 21:00 Serum Total Protein 5.6 g/dL (6.4-8.2) L 11/27/20 21:00 Albumin 1.4 g/dL (3.4-5.0) L 11/27/20 21:00 Globulin 4.2 g/dL (2.3-3.5) H 11/27/20 21:00 Albumin/Globulin Ratio 0.3 (1.1-1.8) L 11/27/20 21:00 SARS-CoV-2 RNA (RT-PCR) Negative (NEGATIVE) 11/27/20 22:24 ABO/Rh AB POSITIVE 11/27/20 21:00 Solid Phase Ab Screen Negative 11/27/20 21:00 Medications List Reviewed: Yes Assessment And Plan - Plan Assessment 1.Sacral coccyx stage IV wound. 2.Severe malnourished. 3.Diabetes mellitus 4. anemia of chronic disease associated with malnourished. . Plan: 1. medihoney, silver alginate, cover with foam qMWF. CT Pelvis could not rule out osteomyelitis-continue vanco for 6 weeks from start date (12/11) end (01/15). Will monitor renal function closely. Dose adjusted via pharmacy. 2. Continue nutrition as the patient needed for healing of his wounds. 3. medical management per primary team. -We will continue to monitor CBC-BMP, monitor for signs of infection. We will follow closely Plan of care discussed with Dr. Sosa. Thank you Dr. Hernández for consult.
[2020-12-23] MEDS: MIRTAZAPINE 15 MG TAB PO SCH (21:30)
--- NOTE | 2020-12-24 07:23 | P.PN ---
Subjective Date of Service: 12/24/20 Primary Care Provider: none Chief Complaint: Debility, achalasia, sacral decubitus Subjective: Improving, Doing well Physical Examination - Vital Signs Temperature: 98.5 F Blood Pressure: 100/63 Pulse: 96 Respirations: 16 Pulse Ox (%): 100 - Physical Exam Other Physical/Emotional Findings: General: Alert, In no apparent distress, Cachectic, Other (severe malnutrition ). HEENT: Atraumatic, Normocephalic, PERRLA. Neck: Supple, 2+ carotid pulse no bruit, JVD not distended, No Thyromegaly. Respiratory: Clear to auscultation bilaterally, Normal air movement. Cardiovascular: No edema, Normal pulses, Regular rate/rhythm. Cap illary refill: <2 Seconds. Gastrointestinal: Normal bowel sounds, Soft and benign, PEG tube placed. Musculoskeletal: Other (diffuse muscle wasting ). Integumentary: Other (sacral stage 4 wound-healing. Base of wound shows granulation and epithelization tissue. No drainage from wound bed. Periwound tissue is clean, dry, intact with no signs of acute infection. ). Urinary: Baltazar catheter - Studies Medications List Reviewed: Yes Assessment & Plan Discharge Plan: Detention Plan to discharge in: Greater than 2 days Physician Review Additional Text: Physical exam: Patient alert, cooperative. No comply this noted. Heart: Regular rate Lungs: Clear Abdomen: Soft Extremities: Muscle wasting throughout. Exam unchanged Impression: Debility, severe malnutrition secondary to achalasia now with PEG tube Large left hip decubitus stage 3-4 ulcer History of Diabetes mellitus type 2 Bipolar disorder/schizophrenia Anemia of chronic disease Plan Debility, severe malnutrition secondary to achalasia now with PEG tube: Continue with plan of care for placement to [facility]. Patient has filed for SSI and SSDI. Spoke with psychiatry yesterday. Psychiatry to evaluate overall mental status and determine competency. Will discuss with Psychiatry today to determine findings. Spoke with social media intern about plan of care. They are to looking into the possibility of transferring patient to a chcf within the [facility] system until he is approved to go to SSDI/SSI facility. I spoke to the CNO yesterday concerning the plan of care. She will reach out to the PA facility in [place] with the help of [facility] administration. Will discuss with family. Large left hip decubitus stage 4: Continue wound healing. Continue IV vancomycin. End date for vancomycin will be January 15. Pharmacy to monitor and adjust appropriately. History of Diabetes mellitus type 2: Hemoglobin A1c 5.2. No diabetes. Blood sugar slightly low. Encourage oral intake. Dietary may need to adjust PEG tube feeds. Bipolar disorder/schizophrenia: Continue current medication. Psychiatry to further evaluate competency and determine if medication needs to be adjusted. Await recommendations by psychiatry. Anemia of chronic disease: Stable. Continue with supplementation. Time Spent Managing Pts Care (In Minutes): 55
[2020-12-24] MEDS: RISPERIDONE 1 MG TABLET FT SCH ×2 (08:35→21:46)
[2020-12-24] MEDS: GABAPENTIN 100 MG CAP FT SCH ×3 (08:36→21:47)
[2020-12-24] MEDS: clonazePAM 0.5 MG TAB PO SCH ×4 (08:36→21:47)
[2020-12-24] MEDS: FOLIC ACID 1 MG TABLET FT SCH (08:37)
[2020-12-24] MEDS: VENLAFAXINE HCL 37.5 MG TAB PO SCH (08:37)
[2020-12-24] MEDS: BENZTROPINE 1 MG TAB PO SCH ×2 (08:38→21:00)
[2020-12-24] MEDS: JEVITY 1.2 CAL LIQUID 1,000 ML BOT FT SCH ×4 (08:38→21:47)
[2020-12-24] MEDS: THIAMINE HCL 100 MG TABLET FT SCH (08:39)
[2020-12-24] MEDS: MULTIVITAMINS 5 ML ORAL SYR FT SCH (08:39)
[2020-12-24] MEDS: MIDODRINE HCL 5 MG TABLET PO SCH ×3 (08:40→21:47)
[2020-12-24] MEDS: VANCOMYCIN 750 MG in NA CHLORIDE 0.9% 250 ML IVPB SCH ×2 (10:08→21:45)
--- NOTE | 2020-12-24 14:37 | P.PN ---
Subjective Date of Service: 12/24/20 Primary Care Provider: none Chief Complaint: Debility, achalasia, sacral decubitus Patient seen and examined at bedside. No acute complaints, denies chest pain, SOB, N/V/D. Review of Systems 10-point ROS is otherwise unremarkable Physical Examination - Vital Signs Temperature: 99.0 F Blood Pressure: 91/57 Pulse: 89 Respirations: 13 Pulse Ox (%): 100 - Physical Exam Other Physical/Emotional Findings: General: Alert, In no apparent distress, Cachectic, Other (severe malnutrition ). HEENT: Atraumatic, Normocephalic, PERRLA. Neck: Supple, 2+ carotid pulse no bruit, JVD not distended, No Thyromegaly. Respiratory: Clear to auscultation bilaterally, Normal air movement. Cardiovascular: No edema, Normal pulses, Regular rate/rhythm. Capillary refill: <2 Seconds. Gastrointestinal: Normal bowel sounds, Soft and benign, PEG tube placed. Musculoskeletal: Other (diffuse muscle wasting ). Integumentary: Other (sacral stage 4 wound-healing. Base of wound shows granulation and epithelization tissue. No drainage from wound bed. Periwound tissue is clean, dry, intact with no signs of acute infection. ). Urinary: Baltazar catheter - Studies Active Medications Acetaminophen (Acetaminophen 500 Mg Tab) 500 mg FT Q4HP PRN PRN Reason: TEMP > 100' F Last Admin: 12/22/20 11:38 Dose: 500 mg Documented by: Hydrocodone Bitart/Acetaminophen (Hydrocod 2.5mg-Acetamin 108mg/5ml Soln) 15 ml PO Q6HP PRN PRN Reason: Pain scale 8-10 (Severe) Last Admin: 12/23/20 14:15 Dose: 15 ml Documented by: Benztropine Mesylate (Benztropine 1 Mg Tab) 0.5 mg PO BID [facility] Last Admin: 12/24/20 08:38 Dose: 0.5 mg Documented by: Clonazepam (Clonazepam 0.5 Mg Tab) 0.5 mg PO TID [facility] Last Admin: 12/24/20 08:36 Dose: 0.5 mg Documented by: Emollient Gel (Medihoney 44 Ml Topical Tube) 1 appl TOP DAILY [facility] Last Admin: 12/23/20 09:01 Dose: 1 appl Documented by: Folic Acid (Folic Acid 1 Mg Tablet) 1 mg FT DAILY [facility] Last Admin: 12/24/20 08:37 Dose: 1 mg Documented by: Gabapentin (Gabapentin 100 Mg Cap) 200 mg FT TID [facility] Last Admin: 12/24/20 08:36 Dose: 200 mg Documented by: Haloperidol Lactate (Haloperidol Lact 5 Mg/Ml Inj) 4 mg IV Q4H PRN PRN Reason: AGITATION Last Admin: 12/22/20 11:38 Dose: 4 mg Documented by: Vancomycin HCl 750 mg/ Sodium (Chloride) 250 mls @ 166.667 mls/hr IVPB Q12H [facility] Last Admin: 12/24/20 10:08 Dose: 250 mls Documented by: Lactulose (Lactulose 20 Gm/30 Ml Ucup) 10 gm PO BID PRN PRN Reason: CONSTIPATION Last Admin: 12/22/20 09:26 Dose: 10 gm Documented by: Midodrine (Midodrine Hcl 5 Mg Tablet) 5 mg PO TID [facility] Last Admin: 12/24/20 08:40 Dose: 5 mg Documented by: Mirtazapine (Mirtazapine 15 Mg Tab) 15 mg PO BEDTIME [facility] Last Admin: 12/23/20 21:30 Dose: 15 mg Documented by: Multivitamins (Multivitamins 5 Ml Oral Syr) 5 ml FT DAILY [facility] Last Admin: 12/24/20 08:39 Dose: 5 ml Documented by: Ondansetron HCl (Ondansetron 4 Mg/2 Ml Vial) 4 mg IV Q6HP PRN PRN Reason: NAUSEA / VOMITING Last Admin: 12/19/20 08:58 Dose: 4 mg Documented by: Risperidone (Risperidone 1 Mg Tablet) 2 mg FT BID [facility] Last Admin: 12/24/20 08:35 Dose: 2 mg Documented by: Sodium Chloride (Flush Normal Saline 10 Ml) 10 ml IV BID [facility] Last Admin: 12/24/20 08:38 Dose: 10 ml Documented by: Sterile Water (Water For Inj,Sterile 10 Ml) 1.2 ml IM UD PRN PRN Reason: DILUTION OF MED Thiamine HCl (Thiamine Hcl 100 Mg Tablet) 100 mg FT DAILY [facility] Last Admin: 12/24/20 08:39 Dose: 100 mg Documented by: Venlafaxine HCl (Venlafaxine Hcl 37.5 Mg Tab) 37.5 mg PO DAILY [facility] Last Admin: 12/24/20 08:37 Dose: 37.5 mg Documented by: Medications List Reviewed: Yes Assessment And Plan - Plan Assessment 1.Sacral coccyx stage IV wound. 2.Severe malnourished. 3.Diabetes mellitus 4. anemia of chronic disease associated with malnourished. . Plan: 1. medihoney, silver alginate, cover with foam qMWF. CT Pelvis could not rule out osteomyelitis-continue vanco for 6 weeks from start date (12/11) end (01/15). Will monitor renal function closely. Dose adjusted via pharmacy. 2. Continue nutrition as the patient needed for healing of his wounds. 3. medical management per primary team. -We will continue to monitor CBC-BMP, monitor for signs of infection. We will follow closely Plan of care discussed with Dr. Sosa. Thank you Dr. Hernández for consult.
[2020-12-24] MEDS: MEDIHONEY 44 ML TOPICAL TUBE TOP SCH (16:00)
[2020-12-24] MEDS: MIRTAZAPINE 15 MG TAB PO SCH (21:47)
[2020-12-25] MEDS: HALOPERIDOL LACT 5 MG/ML INJ IV PRN (00:34)
[2020-12-25] MEDS: HYDROCOD 2.5mg-ACETAMIN 108mg/5mL Soln PO PRN ×2 (04:53→11:36)
--- NOTE | 2020-12-25 08:35 | P.PN ---
Subjective Date of Service: 12/25/20 Primary Care Provider: none Chief Complaint: Debility, achalasia, sacral decubitus Subjective: No new changes, Doing well Physical Examination - Vital Signs Temperature: 99.2 F Blood Pressure: 96/60 Pulse: 107 Respirations: 18 Pulse Ox (%): 100 - Physical Exam Other Physical/Emotional Findings: General: Alert, In no apparent distress, Cachectic, Other (severe malnutrition ). HEENT: Atraumatic, Normocephalic, PERRLA. Neck: Supple, 2+ carotid pulse no bruit, JVD not distended, No Thyromegaly. Respiratory: Clear to auscultation bilaterally, Normal air movement. Cardiovascular: No edema, Normal pulses, Regular rate/rhythm. Capillary refill: <2 Seconds. Gastrointestinal: Normal bowel sounds, Soft and benign, PEG tube placed. Musculoskeletal: Other (diffuse muscle wasting ). Integumentary: Other (sacral stage 4 wound-healing. Base of wound shows granulation and epithelization tissue. No drainage from wound bed. Periwound tissue is clean, dry, intact with no signs of acute infection. ). Urinary: Baltazar catheter - Studies Medications List Reviewed: Yes Assessment & Plan Discharge Plan: [facility] Plan to discharge in: Greater than 2 days Physician Review Additional Text: Physical exam: Patient alert, cooperative. No complaints noted. Heart: Regular rate Lungs: Clear Abdomen: Soft Extremities: Muscle wasting throughout. Exam unchanged Impression: Debility, severe malnutrition secondary to achalasia now with PEG tube Large left hip decubitus stage 3-4 ulcer History of Diabetes mellitus type 2 Bipolar disorder/schizophrenia Anemia of chronic disease Plan Debility, severe malnutrition secondary to achalasia now with PEG tube: Continue with plan of care for placement to care home. Patient has filed for SSI and SSDI. Awaiting Psychiatry evaluation to determine competency and overall mental status. Will discuss with Psychiatry today for recommendation. Possible transfer of patient to a care home within the [facility] system until he is approved to go to SSDI/SSI facility is still being considered. I spoke to the CNO yesterday again concerning the plan of care. She has reached out to the [facility] facility in [place] with the help of [facility] administration. Await decision on the possible transfer. Will discuss with family about plan of care. Large left hip decubitus stage 4: Continue wound healing. Continue IV vancomycin. End date for vancomycin will be January 15. Pharmacy to monitor and adjust appropriately. History of Diabetes mellitus type 2: Hemoglobin A1c 5.2. No diabetes. Blood sugar slightly low. Encourage oral intake. Dietary may need to adjust PEG tube feeds. Bipolar disorder/schizophrenia: Continue current medication. Psychiatry to further evaluate competency and determine if medication needs to be adjusted. Await recommendations by psychiatry. Anemia of chronic disease: Stable. Continue with supplementation. Time Spent Managing Pts Care (In Minutes): 55
[2020-12-25] MEDS: JEVITY 1.2 CAL LIQUID 1,000 ML BOT FT SCH ×4 (09:00→20:29)
[2020-12-25] MEDS: BENZTROPINE 1 MG TAB PO SCH ×2 (09:00→21:00)
[2020-12-25] MEDS: ONDANSETRON 4 MG/2 ML VIAL IV PRN ×3 (09:03→22:58)
[2020-12-25] MEDS: FOLIC ACID 1 MG TABLET FT SCH (09:14)
[2020-12-25] MEDS: RISPERIDONE 1 MG TABLET FT SCH ×2 (09:15→22:55)
[2020-12-25] MEDS: GABAPENTIN 100 MG CAP FT SCH ×3 (09:16→22:55)
[2020-12-25] MEDS: clonazePAM 0.5 MG TAB PO SCH ×3 (09:17→21:00)
[2020-12-25] MEDS: MULTIVITAMINS 5 ML ORAL SYR FT SCH (09:18)
[2020-12-25] MEDS: THIAMINE HCL 100 MG TABLET FT SCH (09:18)
[2020-12-25] MEDS: VENLAFAXINE HCL 37.5 MG TAB PO SCH (09:20)
[2020-12-25] MEDS: MIDODRINE HCL 5 MG TABLET PO SCH ×3 (09:21→22:55)
[2020-12-25] MEDS: MEDIHONEY 44 ML TOPICAL TUBE TOP SCH (09:31)
[2020-12-25] MEDS: VANCOMYCIN 750 MG in NA CHLORIDE 0.9% 250 ML IVPB SCH ×2 (11:37→22:58)
--- NOTE | 2020-12-25 13:38 | P.PN ---
Subjective Date of Service: 12/25/20 Primary Care Provider: none Chief Complaint: Debility, achalasia, sacral decubitus Patient seen and examined at bedside. He denies pain and states he is feeling well. Review of Systems 10-point ROS is otherwise unremarkable Physical Examination - Vital Signs Temperature: 99.2 F Blood Pressure: 96/60 Pulse: 107 Respirations: 18 Pulse Ox (%): 100 - Physical Exam Other Physical/Emotional Findings: General: Alert, In no apparent distress, Cachectic, Other (severe malnutrition ). HEENT: Atraumatic, Normocephalic, PERRLA. Neck: Supple, 2+ carotid pulse no bruit, JVD not distended, No Thyromegaly. Respiratory: Clear to auscultation bilaterally, Normal air movement. Cardiovascular: No edema, Normal pulses, Regular rate/rhythm. Capillary refill: <2 Seconds. Gastrointestinal: Normal bowel sounds, Soft and benign, PEG tube placed. Musculoskeletal: Other (diffuse muscle wasting ). Integumentary: Other (sacral stage 4 wound-healing. Base of wound shows granulation and epithelization tissue. No drainage from wound bed. Periwound tissue is clean, dry, intact with no signs of acute infection. ). Urinary: Baltazar catheter - Studies Laboratory Last Values WBC 5.30 K/uL (4.3-10.9) 11/27/20 21:00 RBC 2.85 M/uL (4.33-5.43) L 11/27/20 21:00 Hgb 8.8 g/dL (13.6-17.9) L 11/27/20 21:00 Hct 25.7 % (39.6-49.0) L 11/27/20 21:00 MCV 90.3 fL (80-100) D 11/27/20 21:00 MCH 30.8 pg (27.0-35.0) 11/27/20 21:00 MCHC 34.1 g/dL (32.0-36.0) 11/27/20 21:00 RDW 19.8 % (12.1-15.2) H 11/27/20 21:00 Plt Count 377 K/uL (152-406) 11/27/20 21:00 MPV 8.2 fL (7.6-11.3) 11/27/20 21:00 Neutrophils % 59.2 % (41.7-73.7) 11/27/20 21:00 Lymphocytes % 29.0 % (15.3-44.8) 11/27/20 21:00 Monocytes % 11.4 % (3.3-12.3) 11/27/20 21:00 Eosinophils % 0.2 % (0-4.4) 11/27/20 21:00 Basophils % 0.2 % (0-1.3) 11/27/20 21:00 Absolute Neutrophils 3.1 K/uL (1.8-8.0) 11/27/20 21:00 Absolute Lymphocytes 1.5 K/uL (0.7-4.9) 11/27/20 21:00 Absolute Monocytes 0.6 K/uL (0.1-1.3) 11/27/20 21:00 Absolute Eosinophils 0.0 K/uL (0-0.5) 11/27/20 21:00 Absolute Basophils 0.0 K/uL (0-0.5) 11/27/20 21:00 PT 11.8 SECONDS (9.5-12.5) 11/27/20 21:00 INR 1.03 11/27/20 21:00 Sodium 141 mmol/L (136-145) 11/27/20 21:00 Potassium 4.5 mmol/L (3.5-5.1) 11/27/20 21:00 Chloride 106 mmol/L (98-107) 11/27/20 21:00 Carbon Dioxide 33 mmol/L (21-32) H 11/27/20 21:00 BUN 8 mg/dL (7-18) 11/27/20 21:00 Creatinine < 0.15 mg/dL (0.55-1.3) L 11/27/20 21:00 Estimated GFR > 90 mL/min (=/>90) 11/27/20 21:00 Glucose 86 mg/dL (74-106) 11/27/20 21:00 Lactic Acid 1.7 mmol/L (0.4-2.0) 11/27/20 21:00 Calcium 7.5 mg/dL (8.5-10.1) L 11/27/20 21:00 Magnesium 2.1 mg/dL (1.8-2.4) 11/27/20 21:00 Total Bilirubin 0.2 mg/dL (0.2-1.0) 11/27/20 21:00 Direct Bilirubin < 0.1 mg/dL (0-0.2) 11/27/20 21:00 AST 19 U/L (15-37) 11/27/20 21:00 ALT 21 U/L (12-78) 11/27/20 21:00 Alkaline Phosphatase 120 U/L (45-117) H 11/27/20 21:00 Rapid Troponin I < 0.02 ng/mL (0.0-0.045) 11/27/20 21:00 NT-Pro-B Natriuret Pep 196 pg/mL (<125) H 11/27/20 21:00 Serum Total Protein 5.6 g/dL (6.4-8.2) L 11/27/20 21:00 Albumin 1.4 g/dL (3.4-5.0) L 11/27/20 21:00 Globulin 4.2 g/dL (2.3-3.5) H 11/27/20 21:00 Albumin/Globulin Ratio 0.3 (1.1-1.8) L 11/27/20 21:00 SARS-CoV-2 RNA (RT-PCR) Negative (NEGATIVE) 11/27/20 22:24 ABO/Rh AB POSITIVE 11/27/20 21:00 Solid Phase Ab Screen Negative 11/27/20 21:00 Medications List Reviewed: Yes Assessment And Plan - Plan Assessment 1.Sacral coccyx stage IV wound. 2.Severe malnourished. 3.Diabetes mellitus 4. anemia of chronic disease associated with malnourished. . Plan: 1. medihoney, silver alginate, cover with foam qMWF. CT Pelvis could not rule out osteomyelitis-continue vanco for 6 weeks from start date (12/11) end (01/15). Will monitor renal function closely. Dose adjusted via pharmacy. 2. Continue nutrition as the patient needed for healing of his wounds. 3. medical management per primary team. -We will continue to monitor CBC-BMP, monitor for signs of infection. We will follow closely Plan of care discussed with Dr. Sosa. Thank you Dr. Hernández for consult.
[2020-12-25] MEDS: MIRTAZAPINE 15 MG TAB PO SCH (22:55)
[2020-12-26] MEDS: JEVITY 1.2 CAL LIQUID 1,000 ML BOT FT SCH ×4 (09:00→21:14)
[2020-12-26] MEDS: BENZTROPINE 1 MG TAB PO SCH ×2 (09:00→21:12)
[2020-12-26] MEDS: MEDIHONEY 44 ML TOPICAL TUBE TOP SCH (09:00)
[2020-12-26] MEDS: THIAMINE HCL 100 MG TABLET FT SCH (09:15)
[2020-12-26] MEDS: RISPERIDONE 1 MG TABLET FT SCH ×2 (09:15→21:09)
[2020-12-26] MEDS: GABAPENTIN 100 MG CAP FT SCH ×3 (09:15→21:08)
[2020-12-26] MEDS: MULTIVITAMINS 5 ML ORAL SYR FT SCH (09:15)
[2020-12-26] MEDS: VENLAFAXINE HCL 37.5 MG TAB PO SCH (09:15)
[2020-12-26] MEDS: HYDROCOD 2.5mg-ACETAMIN 108mg/5mL Soln PO PRN ×2 (09:16→21:16)
[2020-12-26] MEDS: FOLIC ACID 1 MG TABLET FT SCH (09:16)
--- NOTE | 2020-12-26 09:35 | P.PN ---
Subjective Date of Service: 12/26/20 Primary Care Provider: none Chief Complaint: Debility, achalasia, sacral decubitus Subjective: No new changes, Doing well Physical Examination - Vital Signs Temperature: 97.7 F Blood Pressure: 87/51 Pulse: 84 Respirations: 16 Pulse Ox (%): 99 - Physical Exam Other Physical/Emotional Findings: General: Alert, In no apparent distress, Cachectic, Other (severe malnutrition ). HEENT: Atraumatic, Normocephalic, PERRLA. Neck: Supple, 2+ carotid pulse no bruit, JVD not distended, No Thyromegaly. Respiratory: Clear to auscultation bilaterally, Normal air movement. Cardiovascular: No edema, Normal pulses, Regular rate/rhythm. Capillary refill: <2 Seconds. Gastrointestinal: Normal bowel sounds, Soft and benign, PEG tube placed. Musculoskeletal: Other (diffuse muscle wasting ). Integumentary: Other (sacral stage 4 wound-healing. Base of wound shows granulation and epithelization tissue. No drainage from wound bed. Periwound tissue is clean, dry, intact with no signs of acute infection. ). Urinary: Baltazar catheter - Studies Medications List Reviewed: Yes Assessment & Plan Discharge Plan: Correction Plan to discharge in: Greater than 2 days Physician Review Additional Text: Physical exam: Patient alert, cooperative. No complaints noted. Heart: Regular rate Lungs: Clear Abdomen: Soft Extremities: Muscle wasting throughout. Exam unchanged Impression: Debility, severe malnutrition secondary to achalasia now with PEG tube Large left hip decubitus stage 3-4 ulcer History of Diabetes mellitus type 2 Bipolar disorder/schizophrenia Anemia of chronic disease Plan Debility, severe malnutrition secondary to achalasia now with PEG tube: Continue with plan of care for placement to [facility]. Patient has filed for SSI and SSDI. Awaiting Psychiatry evaluation to determine competency and overall mental status. Will discuss with physical therapy to continue effort to try to strengthen patient. Possible transfer of patient to a [facility] within the [facility] system until he is approved to go to SSDI/SSI facility is still being considered. I spoke to the CNO yesterday again concerning the plan of care. She has reached out to the [facility] facility in [place] with the help of [facility] administration. Await decision on the possible transfer. Will discuss with family about plan of care. Large left hip decubitus stage 4: Continue wound healing. Continue with Infectious Disease recommendations. Continue IV vancomycin. End date for vancomycin will be January 15. Pharmacy to monitor and adjust appropriately. History of Diabetes mellitus type 2: Hemoglobin A1c 5.2. No diabetes. Blood sugar slightly low. Encourage oral intake. Dietary may need to adjust PEG tube feeds. Bipolar disorder/schizophrenia: Continue current medication. Psychiatry to further evaluate competency and determine if medication needs to be adjusted. Await recommendations by psychiatry. Anemia of chronic disease: Stable. Continue with supplementation. Time Spent Managing Pts Care (In Minutes): 55
--- NOTE | 2020-12-26 09:35 | P.PN ---
Subjective Date of Service: 12/26/20 Primary Care Provider: none Chief Complaint: Debility, achalasia, sacral decubitus Patient seen and examined at bedside. Reamins afebrile. Has been vomiting for he past few days, however per nurse right after peg tub feedngs h lays down in bed and does not sit upright. Advised patient he needs to set up after peg feedings to avoid vomiting and GI upset. Review of Systems 10-point ROS is otherwise unremarkable Physical Examination - Vital Signs Temperature: 97.7 F Blood Pressure: 87/51 Pulse: 84 Respirations: 16 Pulse Ox (%): 99 - Physical Exam Other Physical/Emotional Findings: General: Alert, In no apparent distress, Cachectic, Other (severe malnutrition ). HEENT: Atraumatic, Normocephalic, PERRLA. Neck: Supple, 2+ carotid pulse no bruit, JVD not distended, No Thyromegaly. Respiratory: Clear to auscultation bilaterally, Normal air movement. Cardiovascular: No edema, Normal pulses, Regular rate/rhythm. Capillary refill: <2 Seconds. Gastrointestinal: Normal bowel sounds, Soft and benign, PEG tube placed. Musculoskeletal: Other (diffuse muscle wasting ). Integumentary: Other (sacral stage 4 wound-healing. Base of wound shows granulation and epithelization tissue. No drainage from wound bed. Periwound tissue is clean, dry, intact with no signs of acute infection. ). Urinary: Baltazar catheter - Studies Laboratory Last Values WBC 5.30 K/uL (4.3-10.9) 11/27/20 21:00 RBC 2.85 M/uL (4.33-5.43) L 11/27/20 21:00 Hgb 8.8 g/dL (13.6-17.9) L 11/27/20 21:00 Hct 25.7 % (39.6-49.0) L 11/27/20 21:00 MCV 90.3 fL (80-100) D 11/27/20 21:00 MCH 30.8 pg (27.0-35.0) 11/27/20 21:00 MCHC 34.1 g/dL (32.0-36.0) 11/27/20 21:00 RDW 19.8 % (12.1-15.2) H 11/27/20 21:00 Plt Count 377 K/uL (152-406) 11/27/20 21:00 MPV 8.2 fL (7.6-11.3) 11/27/20 21:00 Neutrophils % 59.2 % (41.7-73.7) 11/27/20 21:00 Lymphocytes % 29.0 % (15.3-44.8) 11/27/20 21:00 Monocytes % 11.4 % (3.3-12.3) 11/27/20 21:00 Eosinophils % 0.2 % (0-4.4) 11/27/20 21:00 Basophils % 0.2 % (0-1.3) 11/27/20 21:00 Absolute Neutrophils 3.1 K/uL (1.8-8.0) 11/27/20 21:00 Absolute Lymphocytes 1.5 K/uL (0.7-4.9) 11/27/20 21:00 Absolute Monocytes 0.6 K/uL (0.1-1.3) 11/27/20 21:00 Absolute Eosinophils 0.0 K/uL (0-0.5) 11/27/20 21:00 Absolute Basophils 0.0 K/uL (0-0.5) 11/27/20 21:00 PT 11.8 SECONDS (9.5-12.5) 11/27/20 21:00 INR 1.03 11/27/20 21:00 Sodium 141 mmol/L (136-145) 11/27/20 21:00 Potassium 4.5 mmol/L (3.5-5.1) 11/27/20 21:00 Chloride 106 mmol/L (98-107) 11/27/20 21:00 Carbon Dioxide 33 mmol/L (21-32) H 11/27/20 21:00 BUN 8 mg/dL (7-18) 11/27/20 21:00 Creatinine < 0.15 mg/dL (0.55-1.3) L 11/27/20 21:00 Estimated GFR > 90 mL/min (=/>90) 11/27/20 21:00 Glucose 86 mg/dL (74-106) 11/27/20 21:00 Lactic Acid 1.7 mmol/L (0.4-2.0) 02/04/21 21:00 Calcium 7.5 mg/dL (8.5-10.1) L 11/27/20 21:00 Magnesium 2.1 mg/dL (1.8-2.4) 11/27/20 21:00 Total Bilirubin 0.2 mg/dL (0.2-1.0) 11/27/20 21:00 Direct Bilirubin < 0.1 mg/dL (0-0.2) 11/27/20 21:00 AST 19 U/L (15-37) 11/27/20 21:00 ALT 21 U/L (12-78) 11/27/20 21:00 Alkaline Phosphatase 120 U/L (45-117) H 11/27/20 21:00 Rapid Troponin I < 0.02 ng/mL (0.0-0.045) 11/27/20 21:00 NT-Pro-B Natriuret Pep 196 pg/mL (<125) H 11/27/20 21:00 Serum Total Protein 5.6 g/dL (6.4-8.2) L 11/27/20 21:00 Albumin 1.4 g/dL (3.4-5.0) L 11/27/20 21:00 Globulin 4.2 g/dL (2.3-3.5) H 11/27/20 21:00 Albumin/Globulin Ratio 0.3 (1.1-1.8) L 11/27/20 21:00 SARS-CoV-2 RNA (RT-PCR) Negative (NEGATIVE) 11/27/20 22:24 ABO/Rh AB POSITIVE 11/27/20 21:00 Solid Phase Ab Screen Negative 11/27/20 21:00 Medications List Reviewed: Yes Assessment And Plan - Plan Assessment 1.Sacral coccyx stage IV wound. 2.Severe malnourished. 3.Diabetes mellitus 4. anemia of chronic disease associated with malnourished. . Plan: 1. medihoney, silver alginate, cover with foam qMWF. CT Pelvis could not rule out osteomyelitis-continue vanco for 6 weeks from start date (12/11) end (01/15). Will monitor renal function closely. Dose adjusted via pharmacy. 2. Continue nutrition as the patient needed for healing of his wounds. PEG tube placed. 3. medical management per primary team. -awaiting transfer to residential facility. -We will continue to monitor CBC-BMP, monitor for signs of infection. We will follow closely Plan of care discussed with Dr. Sosa. Thank you Dr. Hernández for consult.
[2020-12-26] MEDS: MIDODRINE HCL 5 MG TABLET PO SCH ×3 (10:57→21:09)
[2020-12-26] MEDS: clonazePAM 0.5 MG TAB PO SCH ×3 (10:58→21:09)
[2020-12-26] MEDS: VANCOMYCIN 750 MG in NA CHLORIDE 0.9% 250 ML IVPB SCH ×2 (10:59→22:19)
[2020-12-26] MEDS: NICOTINE 21 MG/PAT TD SCH (18:01)
[2020-12-26] MEDS: MIRTAZAPINE 15 MG TAB PO SCH (21:09)
[2020-12-26] MEDS: HALOPERIDOL LACT 5 MG/ML INJ IV PRN (23:24)
[2020-12-27] MEDS: HYDROCOD 2.5mg-ACETAMIN 108mg/5mL Soln PO PRN ×2 (06:03→13:01)
[2020-12-27] MEDS: MEDIHONEY 44 ML TOPICAL TUBE TOP SCH (07:06)
--- NOTE | 2020-12-27 07:53 | P.PN ---
Subjective Date of Service: 12/27/20 Primary Care Provider: none Chief Complaint: Debility, achalasia, sacral decubitus Subjective: No new changes, Doing well Physical Examination - Vital Signs Temperature: 98.4 F Blood Pressure: 113/58 Pulse: 97 Respirations: 19 Pulse Ox (%): 96 - Physical Exam Other Physical/Emotional Findings: General: Alert, In no apparent distress, Cachectic, Other (severe malnutrition ). HEENT: Atraumatic, Normocephalic, PERRLA. Neck: Supple, 2+ carotid pulse no bruit, JVD not distended, No Thyromegaly. Respiratory: Clear to auscultation bilaterally, Normal air movement. Cardiovascular: No edema, Normal pulses, Regular rate/rhythm. Capillary refill: <2 Seconds. Gastrointestinal: Normal bowel sounds, Soft and benign, PEG tube placed. Musculoskeletal: Other (diffuse muscle wasting ). Integumentary: Other (sacral stage 4 wound-healing. Base of wound shows granulation and epithelization tissue. No drainage from wound bed. Periwound tissue is clean, dry, intact with no signs of acute infection. ). Urinary: Baltazar catheter - Studies Medications List Reviewed: Yes Assessment & Plan Discharge Plan: Skilled Nursing Plan to discharge in: Greater than 2 days Physician Review Additional Text: Physical exam: Patient alert, cooperative. No complaints noted. No new changes. Heart: Regular rate Lungs: Clear Abdomen: Soft Extremities: Muscle wasting throughout. Exam unchanged Impression: Debility, severe malnutrition secondary to achalasia now with PEG tube Large left hip decubitus stage 3-4 ulcer History of Diabetes mellitus type 2 Bipolar disorder/schizophrenia Anemia of chronic disease Plan Debility, severe malnutrition secondary to achalasia now with PEG tube: No new changes. Continue with current plan of care. Continue with plan of care for placement to [facility]. Patient has filed for SSI and SSDI. Still waiting on Psychiatry evaluation to determine competency and overall mental status. Will discuss with physical therapy to continue effort to help strengthen patient. Possible transfer of patient to a [facility] within the [facility] system until he is approved to go to SSDI/SSI facility is still being considered. I spoke to the CNO yesterday again concerning the plan of care. She has reached out to the [facility] facility in [place] with the help of [facility] administration. Await decision on the possible transfer. Will discuss with family about plan of care. Large left hip decubitus stage 4: Continue wound healing. Continue with Infectious Disease recommendations. Continue IV vancomycin. End date for vancomycin will be January 15. Pharmacy to monitor and adjust appropriately. History of Diabetes mellitus type 2: Hemoglobin A1c 5.2. No diabetes. Blood sugar slightly low. Encourage oral intake. Dietary may need to adjust PEG tube feeds. Bipolar disorder/schizophrenia: Continue current medication. Still waiting on Psychiatry to further evaluate competency and determine if medication needs to be adjusted. Await recommendations by psychiatry. Anemia of chronic disease: Stable. Continue with supplementation. Time Spent Managing Pts Care (In Minutes): 55
[2020-12-27] MEDS: GABAPENTIN 100 MG CAP FT SCH ×3 (07:59→21:22)
[2020-12-27] MEDS: THIAMINE HCL 100 MG TABLET FT SCH (07:59)
[2020-12-27] MEDS: NICOTINE 21 MG/PAT TD SCH (07:59)
[2020-12-27] MEDS: MULTIVITAMINS 5 ML ORAL SYR FT SCH (07:59)
[2020-12-27] MEDS: FOLIC ACID 1 MG TABLET FT SCH (08:00)
[2020-12-27] MEDS: RISPERIDONE 1 MG TABLET FT SCH ×2 (08:00→21:22)
[2020-12-27] MEDS: MIDODRINE HCL 5 MG TABLET PO SCH ×3 (08:00→21:22)
[2020-12-27] MEDS: BENZTROPINE 1 MG TAB PO SCH ×2 (08:01→21:24)
[2020-12-27] MEDS: JEVITY 1.2 CAL LIQUID 1,000 ML BOT FT SCH ×4 (09:00→21:25)
[2020-12-27] MEDS: clonazePAM 0.5 MG TAB PO SCH ×3 (09:00→21:00)
[2020-12-27] MEDS: VANCOMYCIN 750 MG in NA CHLORIDE 0.9% 250 ML IVPB SCH ×2 (09:50→21:34)
[2020-12-27] MEDS: VENLAFAXINE HCL 37.5 MG TAB PO SCH (09:50)
[2020-12-27] MEDS: MIRTAZAPINE 15 MG TAB PO SCH (21:22)
[2020-12-28] MEDS: ONDANSETRON 4 MG/2 ML VIAL IV PRN ×2 (06:36→13:40)
[2020-12-28] MEDS: JEVITY 1.2 CAL LIQUID 1,000 ML BOT FT SCH ×4 (09:00→20:21)
[2020-12-28] MEDS: MEDIHONEY 44 ML TOPICAL TUBE TOP SCH (09:00)
[2020-12-28] MEDS: BENZTROPINE 1 MG TAB PO SCH ×2 (09:00→20:14)
[2020-12-28] MEDS: VENLAFAXINE HCL 37.5 MG TAB PO SCH (09:19)
[2020-12-28] MEDS: MULTIVITAMINS 5 ML ORAL SYR FT SCH (09:19)
[2020-12-28] MEDS: HYDROCOD 2.5mg-ACETAMIN 108mg/5mL Soln PO PRN ×2 (09:19→20:18)
[2020-12-28] MEDS: GABAPENTIN 100 MG CAP FT SCH ×3 (09:19→20:13)
[2020-12-28] MEDS: THIAMINE HCL 100 MG TABLET FT SCH (09:20)
[2020-12-28] MEDS: NICOTINE 21 MG/PAT TD SCH (09:20)
[2020-12-28] MEDS: RISPERIDONE 1 MG TABLET FT SCH ×2 (09:20→20:15)
[2020-12-28] MEDS: MIDODRINE HCL 5 MG TABLET PO SCH ×3 (09:20→20:15)
[2020-12-28] MEDS: FOLIC ACID 1 MG TABLET FT SCH (09:20)
[2020-12-28] MEDS: VANCOMYCIN 750 MG in NA CHLORIDE 0.9% 250 ML IVPB SCH ×2 (10:18→22:37)
--- NOTE | 2020-12-28 13:59 | P.PN ---
Subjective Date of Service: 12/28/20 Primary Care Provider: none Chief Complaint: Debility, achalasia, sacral decubitus Subjective: No new changes, Doing well Physical Examination - Vital Signs Temperature: 98 F Blood Pressure: 83/53 Pulse: 93 Respirations: 18 Pulse Ox (%): 100 - Physical Exam Other Physical/Emotional Findings: General: Alert, In no apparent distress, Cachectic, Other (severe malnutrition ). HEENT: Atraumatic, Normocephalic, PERRLA. Neck: Supple, 2+ carotid pulse no bruit, JVD not distended, No Thyromegaly. Respiratory: Clear to auscultation bilaterally, Normal air movement. Cardiovascular: No edema, Normal pulses, Regular rate/rhythm. C apillary refill: <2 Seconds. Gastrointestinal: Normal bowel sounds, Soft and benign, PEG tube placed. Musculoskeletal: Other (diffuse muscle wasting ). Integumentary: Other (sacral stage 4 wound-healing. Base of wound shows granulation and epithelization tissue. No drainage from wound bed. Periwound tissue is clean, dry, intact with no signs of acute infection. ). Urinary: Baltazar catheter - Studies Medications List Reviewed: Yes Assessment & Plan Discharge Plan: Halfway Plan to discharge in: Greater than 2 days Physician Review Additional Text: Physical exam: Patient alert, cooperative. No complaints noted. No new changes. Heart: Regular rate Lungs: Clear Abdomen: Soft Extremities: Muscle wasting throughout. Exam unchanged Impression: Debility, severe malnutrition secondary to achalasia now with PEG tube Large left hip decubitus stage 3-4 ulcer History of Diabetes mellitus type 2 Bipolar disorder/schizophrenia Anemia of chronic disease Plan Debility, severe malnutrition secondary to achalasia now with PEG tube: No new changes. Readdressed importance of clear to full liquids with patient. No soft diet at this time as patient was having some nausea. Continue physical therapy. Continue with current plan of care. Continue with plan of care for placement to senior living. Patient has filed for SSI and SSDI. Still waiting on Psychiatry evaluation to determine competency and overall mental status. Will discuss with physical therapy to continue effort to help strengthen patient. Possible transfer of patient to a senior living within the [facility] system until he is approved to go to SSDI/SSI facility is still being considered. I spoke to the CNO yesterday again concerning the plan of care. She has reached out to the [facility] facility in [place] with the help of [facility] administration. Await decision on the possible transfer. Will discuss with family about plan of care. I will turn the service over to the hospitalist team tomorrow. I will go the plan of care with him. Large left hip decubitus stage 4: Continue wound healing. Continue with Infectious Disease recommendations. Continue IV vancomycin. End date for vancomycin will be January 15. Pharmacy to monitor and adjust appropriately. History of Diabetes mellitus type 2: Hemoglobin A1c 5.2. No diabetes. Blood sugar slightly low. Encourage oral intake. Dietary may need to adjust PEG tube feeds. Bipolar disorder/schizophrenia: Continue current medication. Still waiting on Psychiatry to further evaluate competency and determine if medication needs to be adjusted. Await recommendations by psychiatry. Anemia of chronic disease: Stable. Continue with supplementation. Time Spent Managing Pts Care (In Minutes): 55
[2020-12-28] MEDS: MIRTAZAPINE 15 MG TAB PO SCH (20:16)
[2020-12-28] MEDS ORDERED: MIRTAZAPINE 15 MG TAB ONE (20:22)
[2020-12-28] MEDS ORDERED: BENZTROPINE 1 MG TAB ONE (20:22)
[2020-12-28] MEDS ORDERED: RISPERIDONE 1 MG TABLET ONE (20:23)
[2020-12-28] MEDS ORDERED: GABAPENTIN 100 MG CAP ONE (20:23)
[2020-12-28] MEDS ORDERED: HYDROCOD 2.5mg-ACETAMIN 108mg/5mL Soln ONE (20:27)
[2020-12-28] MEDS ORDERED: MIDODRINE HCL 5 MG TABLET ONE (20:28)
[2020-12-29] MEDS ORDERED: ACETAMINOPHEN 500 MG TAB FT PRN (01:58)
[2020-12-29] MEDS ORDERED: HALOPERIDOL LACT 5 MG/ML INJ IV PRN (01:58)
[2020-12-29] MEDS ORDERED: ONDANSETRON 4 MG/2 ML VIAL IV PRN (01:58)
[2020-12-29] MEDS ORDERED: clonazePAM 1 MG TAB PO PRN ×2 (01:58→08:54)
[2020-12-29] MEDS ORDERED: LACTULOSE 20 GM/30 ML UCUP PO PRN ×2 (08:27→08:54)
[2020-12-29] MEDS ORDERED: WATER FOR INJ,STERILE 10 ML IM PRN (08:51)
[2020-12-29] MEDS: BENZTROPINE 1 MG TAB PO SCH ×2 (09:00→20:20)
[2020-12-29] MEDS: MEDIHONEY 44 ML TOPICAL TUBE TOP SCH (09:00)
[2020-12-29] MEDS: VANCOMYCIN 750 MG in NA CHLORIDE 0.9% 250 ML IVPB SCH ×2 (10:54→22:19)
[2020-12-29] MEDS: RISPERIDONE 1 MG TABLET FT SCH ×2 (10:55→20:17)
[2020-12-29] MEDS: ACETAMINOPHEN 500 MG TAB FT PRN ×2 (10:55→16:46)
[2020-12-29] MEDS: FOLIC ACID 1 MG TABLET FT SCH (10:55)
[2020-12-29] MEDS: MIDODRINE HCL 5 MG TABLET PO SCH ×3 (10:56→20:16)
[2020-12-29] MEDS: GABAPENTIN 100 MG CAP FT SCH ×3 (10:56→20:16)
[2020-12-29] MEDS: THIAMINE HCL 100 MG TABLET FT SCH (10:56)
[2020-12-29] MEDS: VENLAFAXINE HCL 37.5 MG TAB PO SCH (10:56)
[2020-12-29] MEDS: NICOTINE 21 MG/PAT TD SCH (10:57)
[2020-12-29] MEDS: MULTIVITAMINS 5 ML ORAL SYR FT SCH (10:58)
[2020-12-29] MEDS: JEVITY 1.2 CAL LIQUID 1,000 ML BOT FT SCH ×4 (10:59→20:18)
--- NOTE | 2020-12-29 11:50 | P.PN ---
Subjective Date of Service: 12/29/20 Primary Care Provider: none Chief Complaint: Debility, achalasia, sacral decubitus Patient seen and examined at bedside. Patient remains afebrile with a T-max of 97.7. Continue IV vancomycin, monitoring renal function closely. Most recent BMP shows a GFR greater than 90 and creatinine of 0.22. Review of Systems 10-point ROS is otherwise unremarkable Physical Examination - Vital Signs Temperature: 97.7 F Blood Pressure: 107/72 Pulse: 82 Respirations: 18 Pulse Ox (%): 100 - Physical Exam Other Physical/Emotional Findings: General: Alert, In no apparent distress, Cachectic, Other (severe malnutrition ). HEENT: Atraumatic, Normocephalic, PERRLA. Neck: Supple, 2+ carotid pulse no bruit, JVD not distended, No Thyromegaly. Respiratory: Clear to auscultation bilaterally, Normal air movement. Cardiovascular: No edema, Normal pulses, Regular rate/rhythm. Capillary refill: <2 Seconds. Gastrointestinal: Normal bowel sounds, Soft and benign, PEG tube placed. Musculoskeletal: Other (diffuse muscle wasting ). Integumentary: Other (sacral stage 4 wound-healing. Base of wound shows granulation and epithelization tissue. No drainage from wound bed. Periwound tissue is clean, dry, intact with no signs of acute infection. ). Urinary: Baltazar catheter - Studies Laboratory Last Values WBC 5.30 K/uL (4.3-10.9) 11/27/20 21:00 RBC 2.85 M/uL (4.33-5.43) L 11/27/20 21:00 Hgb 8.8 g/dL (13.6-17.9) L 11/27/20 21:00 Hct 25.7 % (39.6-49.0) L 11/27/20 21:00 MCV 90.3 fL (80-100) D 11/27/20 21:00 MCH 30.8 pg (27.0-35.0) 11/27/20 21:00 MCHC 34.1 g/dL (32.0-36.0) 11/27/20 21:00 RDW 19.8 % (12.1-15.2) H 11/27/20 21:00 Plt Count 377 K/uL (152-406) 11/27/20 21:00 MPV 8.2 fL (7.6-11.3) 11/27/20 21:00 Neutrophils % 59.2 % (41.7-73.7) 11/27/20 21:00 Lymphocytes % 29.0 % (15.3-44.8) 11/27/20 21:00 Monocytes % 11.4 % (3.3-12.3) 11/27/20 21:00 Eosinophils % 0.2 % (0-4.4) 11/27/20 21:00 Basophils % 0.2 % (0-1.3) 11/27/20 21:00 Absolute Neutrophils 3.1 K/uL (1.8-8.0) 11/27/20 21:00 Absolute Lymphocytes 1.5 K/uL (0.7-4.9) 11/27/20 21:00 Absolute Monocytes 0.6 K/uL (0.1-1.3) 11/27/20 21:00 Absolute Eosinophils 0.0 K/uL (0-0.5) 11/27/20 21:00 Absolute Basophils 0.0 K/uL (0-0.5) 11/27/20 21:00 PT 11.8 SECONDS (9.5-12.5) 11/27/20 21:00 INR 1.03 11/27/20 21:00 Sodium 141 mmol/L (136-145) 11/27/20 21:00 Potassium 4.5 mmol/L (3.5-5.1) 11/27/20 21:00 Chloride 106 mmol/L (98-107) 11/27/20 21:00 Carbon Dioxide 33 mmol/L (21-32) H 11/27/20 21:00 BUN 8 mg/dL (7-18) 11/27/20 21:00 Creatinine < 0.15 mg/dL (0.55-1.3) L 11/27/20 21:00 Estimated GFR > 90 mL/min (=/>90) 11/27/20 21:00 Glucose 86 mg/dL (74-106) 11/27/20 21:00 Lactic Acid 1.7 mmol/L (0.4-2.0) 11/27/20 21:00 Calcium 7.5 mg/dL (8.5-10.1) L 11/27/20 21:00 Magnesium 2.1 mg/dL (1.8-2.4) 11/27/20 21:00 Total Bilirubin 0.2 mg/dL (0.2-1.0) 11/27/20 21:00 Direct Bilirubin < 0.1 mg/dL (0-0.2) 11/27/20 21:00 AST 19 U/L (15-37) 11/27/20 21:00 ALT 21 U/L (12-78) 11/27/20 21:00 Alkaline Phosphatase 120 U/L (45-117) H 11/27/20 21:00 Rapid Troponin I < 0.02 ng/mL (0.0-0.045) 11/27/20 21:00 NT-Pro-B Natriuret Pep 196 pg/mL (<125) H 11/27/20 21:00 Serum Total Protein 5.6 g/dL (6.4-8.2) L 11/27/20 21:00 Albumin 1.4 g/dL (3.4-5.0) L 11/27/20 21:00 Globulin 4.2 g/dL (2.3-3.5) H 11/27/20 21:00 Albumin/Globulin Ratio 0.3 (1.1-1.8) L 11/27/20 21:00 SARS-CoV-2 RNA (RT-PCR) Negative (NEGATIVE) 11/27/20 22:24 ABO/Rh AB POSITIVE 11/27/20 21:00 Solid Phase Ab Screen Negative 11/27/20 21:00 Medications List Reviewed: Yes Assessment And Plan - Plan Assessment 1.Sacral coccyx stage IV wound. 2.Severe malnourished. 3.Diabetes mellitus 4. anemia of chronic disease associated with malnourished. . Plan: 1. medihoney, silver alginate, cover with foam qMWF. Launch is healing nicely the brain shows 100% granulation tissue. Periwound tissue is clean dry and intact with no signs of acute infection. CT Pelvis could not rule out osteomyelitis-continue vanco for 6 weeks from start date (12/11) end (01/15). Will monitor renal function closely. Dose adjusted via pharmacy. 2. Continue nutrition as the patient needed for healing of his wounds. PEG tube placed. 3. medical management per primary team. -[facility] -We will continue to monitor CBC-BMP, monitor for signs of infection. We will follow closely Plan of care discussed with Dr. Sosa. Thank you Dr. Hernández for consult.
[2020-12-29] MEDS: ONDANSETRON 4 MG/2 ML VIAL IV PRN (18:35)
[2020-12-29] MEDS: MIRTAZAPINE 15 MG TAB PO SCH (20:17)
[2020-12-29] MEDS: HALOPERIDOL LACT 5 MG/ML INJ IV PRN (20:18)
[2020-12-29] MEDS: HYDROCODONE/APAP 10/325 TAB PO PRN (23:07)
[2020-12-30] MEDS: HALOPERIDOL LACT 5 MG/ML INJ IV PRN ×3 (03:42→14:48)
[2020-12-30 06:07] LABS: Magnesium 1.8 mg/dL (1.8-2.4); Potassium 4.1 mmol/L (3.5-5.1)
[2020-12-30] MEDS: RISPERIDONE 1 MG TABLET FT SCH ×2 (09:00→22:27)
[2020-12-30] MEDS: MEDIHONEY 44 ML TOPICAL TUBE TOP SCH (09:00)
[2020-12-30] MEDS: BENZTROPINE 1 MG TAB PO SCH ×2 (09:00→21:00)
[2020-12-30] MEDS: GABAPENTIN 100 MG CAP FT SCH ×3 (09:22→22:26)
[2020-12-30] MEDS: NICOTINE 21 MG/PAT TD SCH (09:22)
[2020-12-30] MEDS: VANCOMYCIN 750 MG in NA CHLORIDE 0.9% 250 ML IVPB SCH ×2 (09:22→22:31)
[2020-12-30] MEDS: VENLAFAXINE HCL 37.5 MG TAB PO SCH (09:22)
[2020-12-30] MEDS: ONDANSETRON 4 MG/2 ML VIAL IV PRN ×2 (09:23→14:48)
[2020-12-30] MEDS: THIAMINE HCL 100 MG TABLET FT SCH (09:23)
[2020-12-30] MEDS: MIDODRINE HCL 5 MG TABLET PO SCH ×3 (09:23→22:27)
[2020-12-30] MEDS: MULTIVITAMINS 5 ML ORAL SYR FT SCH (09:23)
[2020-12-30] MEDS: FOLIC ACID 1 MG TABLET FT SCH (09:23)
[2020-12-30] MEDS: HYDROCODONE/APAP 10/325 TAB PO PRN ×2 (09:24→14:48)
[2020-12-30] MEDS: JEVITY 1.2 CAL LIQUID 1,000 ML BOT FT SCH ×4 (09:33→22:28)
--- NOTE | 2020-12-30 09:33 | P.PN ---
Date of Service: 12/29/20 Subjective Patient with no new complaints Review of Systems 10-point ROS is otherwise unremarkable Physical Examination - Vital Signs Reviewed - Physical Exam General: Alert, In no apparent distress, Oriented x3 Respiratory: Clear to auscultation bilaterally, Normal air movement Cardiovascular: Regular rate/rhythm, Normal S1 S2, No murmurs Assessment & Plan - Problems (Diagnosis) (1) Malnutrition Current Visit: Yes Status: Acute (2) S/P percutaneous endoscopic gastrostomy (PEG) tube placement Current Visit: Yes Status: Acute (3) Sacral decubitus ulcer, stage IV Current Visit: Yes Status: Acute (4) Achalasia Current Visit: Yes Status: Acute (5) Bipolar 1 disorder Current Visit: Yes Status: Acute (6) Schizophrenia Current Visit: Yes Status: Acute - Plan 1. Continue with antibiotics 2. Continue with local wound care 3. Awaiting placement 4. Continue tube feedings 5. Monitor CBC 6. Protein supplementation as necessary 7. Pain control 8. GI and DVT prophylaxis
--- NOTE | 2020-12-30 09:34 | P.PN ---
Date of Service: 12/30/20 Subjective Patient is doing well with no new complaints. Review of Systems 10-point ROS is otherwise unremarkable Physical Examination - Vital Signs Reviewed - Physical Exam General: Alert, In no apparent distress, Oriented x3 Respiratory: Clear to auscultation bilaterally, Normal air movement Cardiovascular: Regular rate/rhythm, Normal S1 S2, No murmurs Assessment & Plan - Problems (Diagnosis) (1) Malnutrition Current Visit: Yes Status: Acute (2) S/P percutaneous endoscopic gastrostomy (PEG) tube placement Current Visit: Yes Status: Acute (3) Sacral decubitus ulcer, stage IV Current Visit: Yes Status: Acute (4) Achalasia Current Visit: Yes Status: Acute (5) Bipolar 1 disorder Current Visit: Yes Status: Acute (6) Schizophrenia Current Visit: Yes Status: Acute - Plan 1. Continue with antibiotics 2. Continue with local wound care 3. Awaiting placement 4. Continue tube feedings 5. Monitor CBC 6. Protein supplementation as necessary 7. Pain control; anti psychosis 8. GI and DVT prophylaxis
--- NOTE | 2020-12-30 14:54 | P.PN ---
Subjective Date of Service: 12/30/20 Primary Care Provider: none Chief Complaint: Debility, achalasia, sacral decubitus Patient seen and examined at bedside. No new changes. Awaiting LTAC placement. Review of Systems 10-point ROS is otherwise unremarkable Physical Examination - Vital Signs Temperature: 96.9 F Blood Pressure: 106/70 Pulse: 71 Respirations: 16 Pulse Ox (%): 96 - Physical Exam Other Physical/Emotional Findings: General: Alert, In no apparent distress, Cachectic, Other (severe malnutrition ). HEENT: Atraumatic, Normocephalic, PERRLA. Neck: Supple, 2+ carotid pulse no bruit, JVD not distended, No Thyromegaly. Respiratory: Clear to auscultation bilaterally, Normal air movement. Cardiovascular: No edema, Normal pulses, Regular rate/rhythm. Capillary refill: <2 Seconds. Gastrointestinal: Normal bowel sounds, Soft and benign, PEG tube placed. Musculoskeletal: Other (diffuse muscle wasting ). Integumentary: Other (sacral stage 4 wound-healing. Base of wound shows granulation and epithelization tissue. No drainage from wound bed. Periwound tissue is clean, dry, intact with no signs of acute infection. ). Urinary: Baltazar catheter - Studies Laboratory Last Values WBC 5.30 K/uL (4.3-10.9) 11/27/20 21:00 RBC 2.85 M/uL (4.33-5.43) L 11/27/20 21:00 Hgb 8.8 g/dL (13.6-17.9) L 11/27/20 21:00 Hct 25.7 % (39.6-49.0) L 11/27/20 21:00 MCV 90.3 fL (80-100) D 11/27/20 21:00 MCH 30.8 pg (27.0-35.0) 11/27/20 21:00 MCHC 34.1 g/dL (32.0-36.0) 11/27/20 21:00 RDW 19.8 % (12.1-15.2) H 11/27/20 21:00 Plt Count 377 K/uL (152-406) 11/27/20 21:00 MPV 8.2 fL (7.6-11.3) 11/27/20 21:00 Neutrophils % 59.2 % (41.7-73.7) 11/27/20 21:00 Lymphocytes % 29.0 % (15.3-44.8) 11/27/20 21:00 Monocytes % 11.4 % (3.3-12.3) 11/27/20 21:00 Eosinophils % 0.2 % (0-4.4) 11/27/20 21:00 Basophils % 0.2 % (0-1.3) 11/27/20 21:00 Absolute Neutrophils 3.1 K/uL (1.8-8.0) 11/27/20 21:00 Absolute Lymphocytes 1.5 K/uL (0.7-4.9) 11/27/20 21:00 Absolute Monocytes 0.6 K/uL (0.1-1.3) 11/27/20 21:00 Absolute Eosinophils 0.0 K/uL (0-0.5) 11/27/20 21:00 Absolute Basophils 0.0 K/uL (0-0.5) 11/27/20 21:00 PT 11.8 SECONDS (9.5-12.5) 11/27/20 21:00 INR 1.03 11/27/20 21:00 Sodium 141 mmol/L (136-145) 11/27/20 21:00 Potassium 4.5 mmol/L (3.5-5.1) 11/27/20 21:00 Chloride 106 mmol/L (98-107) 11/27/20 21:00 Carbon Dioxide 33 mmol/L (21-32) H 11/27/20 21:00 BUN 8 mg/dL (7-18) 11/27/20 21:00 Creatinine < 0.15 mg/dL (0.55-1.3) L 11/27/20 21:00 Estimated GFR > 90 mL/min (=/>90) 11/27/20 21:00 Glucose 86 mg/dL (74-106) 11/27/20 21:00 Lactic Acid 1.7 mmol/L (0.4-2.0) 11/27/20 21:00 Calcium 7.5 mg/dL (8.5-10.1) L 11/27/20 21:00 Magnesium 2.1 mg/dL (1.8-2.4) 11/27/20 21:00 Total Bilirubin 0.2 mg/dL (0.2-1.0) 11/27/20 21:00 Direct Bilirubin < 0.1 mg/dL (0-0.2) 11/27/20 21:00 AST 19 U/L (15-37) 11/27/20 21:00 ALT 21 U/L (12-78) 11/27/20 21:00 Alkaline Phosphatase 120 U/L (45-117) H 11/27/20 21:00 Rapid Troponin I < 0.02 ng/mL (0.0-0.045) 11/27/20 21:00 NT-Pro-B Natriuret Pep 196 pg/mL (<125) H 11/27/20 21:00 Serum Total Protein 5.6 g/dL (6.4-8.2) L 11/27/20 21:00 Albumin 1.4 g/dL (3.4-5.0) L 11/27/20 21:00 Globulin 4.2 g/dL (2.3-3.5) H 11/27/20 21:00 Albumin/Globulin Ratio 0.3 (1.1-1.8) L 11/27/20 21:00 SARS-CoV-2 RNA (RT-PCR) Negative (NEGATIVE) 11/27/20 22:24 ABO/Rh AB POSITIVE 11/27/20 21:00 Solid Phase Ab Screen Negative 11/27/20 21:00 Medications List Reviewed: Yes Assessment And Plan - Plan Assessment 1.Sacral coccyx stage IV wound. 2.Severe malnourished. 3.Diabetes mellitus 4. anemia of chronic disease associated with malnourished. . Plan: 1. medihoney, silver alginate, cover with foam qMWF. Launch is healing nicely the brain shows 100% granulation tissue. Periwound tissue is clean dry and intact with no signs of acute infection. CT Pelvis could not rule out osteomyelitis-continue vanco for 6 weeks from start date (12/11) end (01/15). Will monitor renal function closely. Dose adjusted via pharmacy. 2. Continue nutrition as the patient needed for healing of his wounds. PEG tube placed. 3. medical management per primary team. -awaiting transfer to half-way facility. -We will continue to monitor CBC-BMP, monitor for signs of infection. We will follow closely Plan of care discussed with Dr. Sosa. Thank you Dr. Hernández for consult.
[2020-12-30] MEDS: clonazePAM 0.5 MG TAB PO PRN (18:32)
[2020-12-30] MEDS: MIRTAZAPINE 15 MG TAB PO SCH (22:27)
[2020-12-31] MEDS: HYDROCODONE/APAP 10/325 TAB PO PRN ×2 (07:26→15:36)
[2020-12-31] MEDS: MEDIHONEY 44 ML TOPICAL TUBE TOP SCH (09:00)
[2020-12-31] MEDS: BENZTROPINE 1 MG TAB PO SCH ×2 (09:00→21:00)
[2020-12-31] MEDS: VANCOMYCIN 750 MG in NA CHLORIDE 0.9% 250 ML IVPB SCH ×2 (10:41→22:33)
[2020-12-31] MEDS: FOLIC ACID 1 MG TABLET FT SCH (10:41)
[2020-12-31] MEDS: MIDODRINE HCL 5 MG TABLET PO SCH ×3 (10:42→22:31)
[2020-12-31] MEDS: RISPERIDONE 1 MG TABLET FT SCH ×2 (10:42→22:31)
[2020-12-31] MEDS: NICOTINE 21 MG/PAT TD SCH (10:42)
[2020-12-31] MEDS: VENLAFAXINE HCL 37.5 MG TAB PO SCH (10:42)
[2020-12-31] MEDS: THIAMINE HCL 100 MG TABLET FT SCH (10:42)
[2020-12-31] MEDS: GABAPENTIN 100 MG CAP FT SCH ×3 (10:42→22:31)
[2020-12-31] MEDS: clonazePAM 0.5 MG TAB PO PRN (10:42)
[2020-12-31] MEDS: HALOPERIDOL LACT 5 MG/ML INJ IV PRN ×2 (10:43→15:36)
[2020-12-31] MEDS: MULTIVITAMINS 5 ML ORAL SYR FT SCH (10:44)
[2020-12-31] MEDS: ONDANSETRON 4 MG/2 ML VIAL IV PRN ×2 (10:48→18:14)
--- NOTE | 2020-12-31 10:52 | P.PN ---
Subjective Date of Service: 12/31/20 Primary Care Provider: none Chief Complaint: Debility, achalasia, sacral decubitus Patient seen and examined at bedside. Patient states pain has decreased. Wound stable. Awaiting placement. Review of Systems 10-point ROS is otherwise unremarkable Physical Examination - Vital Signs Temperature: 97.8 F Blood Pressure: 89/52 Pulse: 75 Respirations: 16 Pulse Ox (%): 100 - Physical Exam Other Physical/Emotional Findings: General: Alert, In no apparent distress, Cachectic, Other (severe malnutrition ). HEENT: Atraumatic, Normocephalic, PERRLA. Neck: Supple, 2+ carotid pulse no bruit, JVD not distended, No Thyromegaly. Respiratory: Clear to auscultation bilaterally, Normal air movement. Cardiovascular: No edema, Normal pulses, Regular rate/rhythm. Capillary refill: <2 Seconds. Gastrointestinal: Normal bowel sounds, Soft and benign, PEG tube placed. Musculoskeletal: Other (diffuse muscle wasting ). Integumentary: Other (sacral stage 4 wound-healing. Base of wound shows granulation and epithelization tissue. No drainage from wound bed. Periwound tissue is clean, dry, intact with no signs of acute infection. ). Urinary: Baltazar catheter - Studies Laboratory Last Values WBC 5.30 K/uL (4.3-10.9) 11/27/20 21:00 RBC 2.85 M/uL (4.33-5.43) L 11/27/20 21:00 Hgb 8.8 g/dL (13.6-17.9) L 11/27/20 21:00 Hct 25.7 % (39.6-49.0) L 11/27/20 21:00 MCV 90.3 fL (80-100) D 11/27/20 21:00 MCH 30.8 pg (27.0-35.0) 11/27/20 21:00 MCHC 34.1 g/dL (32.0-36.0) 11/27/20 21:00 RDW 19.8 % (12.1-15.2) H 11/27/20 21:00 Plt Count 377 K/uL (152-406) 11/27/20 21:00 MPV 8.2 fL (7.6-11.3) 11/27/20 21:00 Neutrophils % 59.2 % (41.7-73.7) 11/27/20 21:00 Lymphocytes % 29.0 % (15.3-44.8) 11/27/20 21:00 Monocytes % 11.4 % (3.3-12.3) 11/27/20 21:00 Eosinophils % 0.2 % (0-4.4) 11/27/20 21:00 Basophils % 0.2 % (0-1.3) 11/27/20 21:00 Absolute Neutrophils 3.1 K/uL (1.8-8.0) 11/27/20 21:00 Absolute Lymphocytes 1.5 K/uL (0.7-4.9) 11/27/20 21:00 Absolute Monocytes 0.6 K/uL (0.1-1.3) 11/27/20 21:00 Absolute Eosinophils 0.0 K/uL (0-0.5) 11/27/20 21:00 Absolute Basophils 0.0 K/uL (0-0.5) 11/27/20 21:00 PT 11.8 SECONDS (9.5-12.5) 11/27/20 21:00 INR 1.03 11/27/20 21:00 Sodium 141 mmol/L (136-145) 11/27/20 21:00 Potassium 4.5 mmol/L (3.5-5.1) 11/27/20 21:00 Chloride 106 mmol/L (98-107) 11/27/20 21:00 Carbon Dioxide 33 mmol/L (21-32) H 11/27/20 21:00 BUN 8 mg/dL (7-18) 11/27/20 21:00 Creatinine < 0.15 mg/dL (0.55-1.3) L 11/27/20 21:00 Estimated GFR > 90 mL/min (=/>90) 11/27/20 21:00 Glucose 86 mg/dL (74-106) 11/27/20 21:00 Lactic Acid 1.7 mmol/L (0.4-2.0) 11/27/20 21:00 Calcium 7.5 mg/dL (8.5-10.1) L 11/27/20 21:00 Magnesium 2.1 mg/dL (1.8-2.4) 11/27/20 21:00 Total Bilirubin 0.2 mg/dL (0.2-1.0) 11/27/20 21:00 Direct Bilirubin < 0.1 mg/dL (0-0.2) 11/27/20 21:00 AST 19 U/L (15-37) 11/27/20 21:00 ALT 21 U/L (12-78) 11/27/20 21:00 Alkaline Phosphatase 120 U/L (45-117) H 11/27/20 21:00 Rapid Troponin I < 0.02 ng/mL (0.0-0.045) 11/27/20 21:00 NT-Pro-B Natriuret Pep 196 pg/mL (<125) H 11/27/20 21:00 Serum Total Protein 5.6 g/dL (6.4-8.2) L 11/27/20 21:00 Albumin 1.4 g/dL (3.4-5.0) L 11/27/20 21:00 Globulin 4.2 g/dL (2.3-3.5) H 11/27/20 21:00 Albumin/Globulin Ratio 0.3 (1.1-1.8) L 11/27/20 21:00 SARS-CoV-2 RNA (RT-PCR) Negative (NEGATIVE) 11/27/20 22:24 ABO/Rh AB POSITIVE 11/27/20 21:00 Solid Phase Ab Screen Negative 11/27/20 21:00 Medications List Reviewed: Yes Assessment And Plan - Plan Assessment 1.Sacral coccyx stage IV wound. 2.Severe malnourished. 3.Diabetes mellitus 4. anemia of chronic disease associated with malnourished. . Plan: 1. medihoney, silver alginate, cover with foam qMWF. Launch is healing nicely the brain shows 100% granulation tissue. Periwound tissue is clean dry and intact with no signs of acute infection. CT Pelvis could not rule out osteomyelitis-continue vanco for 6 weeks from start date (12/11) end (01/15). Will monitor renal function closely. Dose adjusted via pharmacy. 2. Continue nutrition as the patient needed for healing of his wounds. PEG tube placed. 3. medical management per primary team. -awaiting transfer to nursing home facility. -We will continue to monitor CBC-BMP, monitor for signs of infection. We will follow closely Plan of care discussed with Dr. Sosa. Thank you Dr. Hernández for consult.
[2020-12-31] MEDS: JEVITY 1.2 CAL LIQUID 1,000 ML BOT FT SCH ×4 (11:03→21:00)
[2020-12-31] MEDS: MIRTAZAPINE 15 MG TAB PO SCH (22:31)
[2021-01-01] MEDS: ONDANSETRON 4 MG/2 ML VIAL IV PRN ×3 (01:31→14:33)
--- NOTE | 2021-01-01 08:49 | CON ---
Type Of Consult: Psychiatric consult. Reason For Consult: Evaluate for capacity to make decision about discharge planning. History Of Present Illness: Mr. Ancelmo Reyes is a 35-year-old male with psychiatric history significant for schizophrenia; bipolar disorder; major depressive disorder, unspecified; anxiety disorder, unspecified; admitted to the medical floor. Patient is being evaluated for capacity to make decision regarding his discharge plan. On interview, patient does express significant depression which he says he gets by being in chronic pain and reports lack of social support and as per seen, he says that he has no plan of where to go if discharged from the hospital. He became agitated and frustrated. Per nurse, patient has been screaming on the unit multiple times, at times difficult to redirect, and is currently on Haldol p.r.n. for agitation. Patient also gets confused intermittently, but no physical aggressive behavior, no psychotic symptoms reported. Eric has started his antidepressant. He is currently on it for about 2 weeks, which is being fed essentially through PEG tube. Objective: Clinically ill looking, still malnourished, met lying in bed, not seen in acute distress; however, does express chronic pain. He was met sleeping, a little difficult to arouse. Mood described as frustrated. Affect was congruent. Thought process linear to circumstantial. No flight of ideas. Thought content, no suicidal or homicidal ideation. Fund of knowledge average. Language skills fair. Diagnoses: Bipolar disorder schizophrenia. Impression: 35-year-old male with psychiatric history significant for history of bipolar disorder, currently being treated for depressive disorder, anxiety disorder and inability to care for self. Patient is currently being fed via PEG tube.Patient lacks capacity to rationally make decision with regards to his discharge plan at this time due to lack of significant social support. We recommend deferring discharge planning next of kin. Will recommend to continue current medications. Will recommend benztropine 0.5 mg p.o. b.i.d. for EPS. Will continue IV Haldol 4 mg q.4 hourly p.r.n. for verbal agitation. KO/MODL Voice ID: [id number] Report ID: [id number] OLIVERIO
[2021-01-01] MEDS: NICOTINE 21 MG/PAT TD SCH (08:57)
[2021-01-01] MEDS: BENZTROPINE 1 MG TAB PO SCH ×2 (08:58→21:00)
[2021-01-01] MEDS: GABAPENTIN 100 MG CAP FT SCH ×3 (08:58→21:20)
[2021-01-01] MEDS: MIDODRINE HCL 5 MG TABLET PO SCH ×3 (08:58→21:20)
[2021-01-01] MEDS: RISPERIDONE 1 MG TABLET FT SCH ×2 (08:58→21:20)
[2021-01-01] MEDS: THIAMINE HCL 100 MG TABLET FT SCH (08:58)
[2021-01-01] MEDS: FOLIC ACID 1 MG TABLET FT SCH (08:58)
[2021-01-01] MEDS: HYDROCODONE/APAP 10/325 TAB PO PRN ×2 (08:58→14:33)
[2021-01-01] MEDS: MULTIVITAMINS 5 ML ORAL SYR FT SCH (08:59)
[2021-01-01] MEDS: VENLAFAXINE HCL 37.5 MG TAB PO SCH (08:59)
[2021-01-01] MEDS: HALOPERIDOL LACT 5 MG/ML INJ IV PRN (08:59)
[2021-01-01] MEDS: VANCOMYCIN 750 MG in NA CHLORIDE 0.9% 250 ML IVPB SCH ×2 (09:00→21:20)
[2021-01-01] MEDS: MEDIHONEY 44 ML TOPICAL TUBE TOP SCH (09:00)
[2021-01-01] MEDS: JEVITY 1.2 CAL LIQUID 1,000 ML BOT FT SCH ×4 (09:00→21:21)
--- NOTE | 2021-01-01 09:28 | P.PN ---
Date of Service: 12/31/20 Subjective Patient denies any new complaints. Clinically doing well. Awaiting for placement Review of Systems 10-point ROS is otherwise unremarkable Physical Examination - Vital Signs Reviewed - Physical Exam General: Alert, In no apparent distress, Oriented x3 Respiratory: Clear to auscultation bilaterally, Normal air movement Cardiovascular: Regular rate/rhythm, Normal S1 S2, No murmurs Assessment & Plan - Problems (Diagnosis) (1) Malnutrition Current Visit: Yes Status: Acute (2) S/P percutaneous endoscopic gastrostomy (PEG) tube placement Current Visit: Yes Status: Acute (3) Sacral decubitus ulcer, stage IV Current Visit: Yes Status: Acute (4) Achalasia Current Visit: Yes Status: Acute (5) Bipolar 1 disorder Current Visit: Yes Status: Acute (6) Schizophrenia Current Visit: Yes Status: Acute - Plan Continue with plan of care as mentioned below 1. Awaiting placement 2. Continue tube feedings 3. Protein supplementation as necessary 4. Pain control; antipsychosis 5. GI and DVT prophylaxis
--- NOTE | 2021-01-01 12:55 | P.PN ---
Subjective Date of Service: 01/01/21 Primary Care Provider: none Chief Complaint: Debility, achalasia, sacral decubitus Patient seen and examined at bedside. O: Don the and recommend transitioning hemoglobin drops below 7. Still awaiting transfer. Review of Systems 10-point ROS is otherwise unremarkable Physical Examination - Vital Signs Temperature: 98.0 F Blood Pressure: 109/63 Pulse: 82 Respirations: 14 Pulse Ox (%): 99 - Physical Exam Other Physical/Emotional Findings: General: Alert, In no apparent distress, Cachectic, Other (severe malnutrition ). HEENT: Atraumatic, Normocephalic, PERRLA. Neck: Supple, 2+ carotid pulse no bruit, JVD not distended, No Thyromegaly. Respiratory: Clear to auscultation bilaterally, Normal air movement. Cardiovascular: No edema, Normal pulses, Regular rate/rhythm. Capillary refill: <2 Seconds. Gastrointestinal: Normal bowel sounds, Soft and benign, PEG tube placed. Musculoskeletal: Other (diffuse muscle wasting ). Integumentary: Other (sacral stage 4 wound-healing. Base of wound shows granulation and epithelization tissue. No drainage from wound bed. Periwound tissue is clean, dry, intact with no signs of acute infection. ). Urinary: Baltazar catheter - Studies Laboratory Last Values WBC 5.30 K/uL (4.3-10.9) 11/27/20 21:00 RBC 2.85 M/uL (4.33-5.43) L 11/27/20 21:00 Hgb 8.8 g/dL (13.6-17.9) L 11/27/20 21:00 Hct 25.7 % (39.6-49.0) L 11/27/20 21:00 MCV 90.3 fL (80-100) D 11/27/20 21:00 MCH 30.8 pg (27.0-35.0) 11/27/20 21:00 MCHC 34.1 g/dL (32.0-36.0) 11/27/20 21:00 RDW 19.8 % (12.1-15.2) H 11/27/20 21:00 Plt Count 377 K/uL (152-406) 11/27/20 21:00 MPV 8.2 fL (7.6-11.3) 02/04/21 21:00 Neutrophils % 59.2 % (41.7-73.7) 11/27/20 21:00 Lymphocytes % 29.0 % (15.3-44.8) 11/27/20 21:00 Monocytes % 11.4 % (3.3-12.3) 11/27/20 21:00 Eosinophils % 0.2 % (0-4.4) 11/27/20 21:00 Basophils % 0.2 % (0-1.3) 11/27/20 21:00 Absolute Neutrophils 3.1 K/uL (1.8-8.0) 11/27/20 21:00 Absolute Lymphocytes 1.5 K/uL (0.7-4.9) 11/27/20 21:00 Absolute Monocytes 0.6 K/uL (0.1-1.3) 11/27/20 21:00 Absolute Eosinophils 0.0 K/uL (0-0.5) 11/27/20 21:00 Absolute Basophils 0.0 K/uL (0-0.5) 11/27/20 21:00 PT 11.8 SECONDS (9.5-12.5) 11/27/20 21:00 INR 1.03 11/27/20 21:00 Sodium 141 mmol/L (136-145) 11/27/20 21:00 Potassium 4.5 mmol/L (3.5-5.1) 11/27/20 21:00 Chloride 106 mmol/L (98-107) 11/27/20 21:00 Carbon Dioxide 33 mmol/L (21-32) H 11/27/20 21:00 BUN 8 mg/dL (7-18) 11/27/20 21:00 Creatinine < 0.15 mg/dL (0.55-1.3) L 11/27/20 21:00 Estimated GFR > 90 mL/min (=/>90) 11/27/20 21:00 Glucose 86 mg/dL (74-106) 11/27/20 21:00 Lactic Acid 1.7 mmol/L (0.4-2.0) 11/27/20 21:00 Calcium 7.5 mg/dL (8.5-10.1) L 11/27/20 21:00 Magnesium 2.1 mg/dL (1.8-2.4) 11/27/20 21:00 Total Bilirubin 0.2 mg/dL (0.2-1.0) 11/27/20 21:00 Direct Bilirubin < 0.1 mg/dL (0-0.2) 11/27/20 21:00 AST 19 U/L (15-37) 11/27/20 21:00 ALT 21 U/L (12-78) 11/27/20 21:00 Alkaline Phosphatase 120 U/L (45-117) H 11/27/20 21:00 Rapid Troponin I < 0.02 ng/mL (0.0-0.045) 11/27/20 21:00 NT-Pro-B Natriuret Pep 196 pg/mL (<125) H 11/27/20 21:00 Serum Total Protein 5.6 g/dL (6.4-8.2) L 11/27/20 21:00 Albumin 1.4 g/dL (3.4-5.0) L 11/27/20 21:00 Globulin 4.2 g/dL (2.3-3.5) H 11/27/20 21:00 Albumin/Globulin Ratio 0.3 (1.1-1.8) L 11/27/20 21:00 SARS-CoV-2 RNA (RT-PCR) Negative (NEGATIVE) 11/27/20 22:24 ABO/Rh AB POSITIVE 11/27/20 21:00 Solid Phase Ab Screen Negative 11/27/20 21:00 Medications List Reviewed: Yes Assessment And Plan - Plan Assessment 1.Sacral coccyx stage IV wound. 2.Severe malnourished. 3.Diabetes mellitus 4. anemia of chronic disease associated with malnourished. . Plan: 1. medihoney, silver alginate, cover with foam qMWF. Wound is healing well, 100% granulation tissue. Periwound tissue is clean dry and intact with no signs of acute infection. CT Pelvis could not rule out osteomyelitis-continue vanco for 6 weeks from start date (12/11) end (01/15). Will monitor renal function closely. Dose adjusted via pharmacy. 2. Continue nutrition as the patient needed for healing of his wounds. PEG tube placed. 3. medical management per primary team. -awaiting transfer to nursing home facility. -We will continue to monitor CBC-BMP, monitor for signs of infection. We will follow closely Plan of care discussed with Dr. Sosa. Thank you Dr. Hernández for consult.
[2021-01-01] MEDS: MIRTAZAPINE 15 MG TAB PO SCH (21:20)
[2021-01-02] MEDS: HYDROCODONE/APAP 10/325 TAB PO PRN ×3 (03:19→14:32)
[2021-01-02] MEDS: NICOTINE 21 MG/PAT TD SCH (08:45)
[2021-01-02] MEDS: HALOPERIDOL LACT 5 MG/ML INJ IV SCH (08:45)
[2021-01-02] MEDS: RISPERIDONE 1 MG TABLET FT SCH ×2 (08:46→21:45)
[2021-01-02] MEDS: BENZTROPINE 1 MG TAB PO SCH ×2 (08:46→21:00)
[2021-01-02] MEDS: ONDANSETRON 4 MG/2 ML VIAL IV PRN (08:46)
[2021-01-02] MEDS: THIAMINE HCL 100 MG TABLET FT SCH (08:46)
[2021-01-02] MEDS: VENLAFAXINE HCL 37.5 MG TAB PO SCH (08:46)
[2021-01-02] MEDS: MIDODRINE HCL 5 MG TABLET PO SCH ×3 (08:46→21:41)
[2021-01-02] MEDS: MULTIVITAMINS 5 ML ORAL SYR FT SCH (08:46)
[2021-01-02] MEDS: FOLIC ACID 1 MG TABLET FT SCH (08:46)
[2021-01-02] MEDS: GABAPENTIN 100 MG CAP FT SCH ×3 (08:47→21:41)
[2021-01-02] MEDS: clonazePAM 0.5 MG TAB PO PRN (08:47)
[2021-01-02] MEDS: VANCOMYCIN 750 MG in NA CHLORIDE 0.9% 250 ML IVPB SCH ×2 (08:51→21:42)
[2021-01-02] MEDS: JEVITY 1.2 CAL LIQUID 1,000 ML BOT FT SCH ×4 (08:52→21:00)
[2021-01-02] MEDS: MEDIHONEY 44 ML TOPICAL TUBE TOP SCH (08:52)
--- NOTE | 2021-01-02 14:23 | P.PN ---
Subjective Date of Service: 01/02/21 Primary Care Provider: none Chief Complaint: Debility, achalasia, sacral decubitus Patient seen and examined at bedside. No acute complaints, wound improving. Review of Systems 10-point ROS is otherwise unremarkable Physical Examination - Vital Signs Temperature: 97.2 F Blood Pressure: 86/54 Pulse: 98 Respirations: 14 Pulse Ox (%): 98 - Physical Exam Other Physical/Emotional Findings: General: Alert, In no apparent distress, Cachectic, Other (severe malnutrition ). HEENT: Atraumatic, Normocephalic, PERRLA. Neck: Supple, 2+ carotid pulse no bruit, JVD not distended, No Thyromegaly. Respiratory: Clear to auscultation bilaterally, Normal air movement. Cardiovascular: No edema, Normal pulses, Regular rate/rhythm. Capillary refill: <2 Seconds. Gastrointestinal: Normal bowel sounds, Soft and benign, PEG tube placed. Musculoskeletal: Other (diffuse muscle wasting ). Integumentary: Other (sacral stage 4 wound-healing. Base of wound shows 100% granulation tissue, No drainage from wound bed. Periwound tissue is clean, dry, intact with no signs of acute infection. ). Urinary: Baltazar catheter - Studies Laboratory Last Values WBC 5.30 K/uL (4.3-10.9) 11/27/20 21:00 RBC 2.85 M/uL (4.33-5.43) L 11/27/20 21:00 Hgb 8.8 g/dL (13.6-17.9) L 11/27/20 21:00 Hct 25.7 % (39.6-49.0) L 11/27/20 21:00 MCV 90.3 fL (80-100) D 11/27/20 21:00 MCH 30.8 pg (27.0-35.0) 11/27/20 21:00 MCHC 34.1 g/dL (32.0-36.0) 11/27/20 21:00 RDW 19.8 % (12.1-15.2) H 11/27/20 21:00 Plt Count 377 K/uL (152-406) 11/27/20 21:00 MPV 8.2 fL (7.6-11.3) 11/27/20 21:00 Neutrophils % 59.2 % (41.7-73.7) 11/27/20 21:00 Lymphocytes % 29.0 % (15.3-44.8) 11/27/20 21:00 Monocytes % 11.4 % (3.3-12.3) 11/27/20 21:00 Eosinophils % 0.2 % (0-4.4) 11/27/20 21:00 Basophils % 0.2 % (0-1.3) 11/27/20 21:00 Absolute Neutrophils 3.1 K/uL (1.8-8.0) 11/27/20 21:00 Absolute Lymphocytes 1.5 K/uL (0.7-4.9) 11/27/20 21:00 Absolute Monocytes 0.6 K/uL (0.1-1.3) 11/27/20 21:00 Absolute Eosinophils 0.0 K/uL (0-0.5) 11/27/20 21:00 Absolute Basophils 0.0 K/uL (0-0.5) 11/27/20 21:00 PT 11.8 SECONDS (9.5-12.5) 11/27/20 21:00 INR 1.03 11/27/20 21:00 Sodium 141 mmol/L (136-145) 11/27/20 21:00 Potassium 4.5 mmol/L (3.5-5.1) 11/27/20 21:00 Chloride 106 mmol/L (98-107) 11/27/20 21:00 Carbon Dioxide 33 mmol/L (21-32) H 11/27/20 21:00 BUN 8 mg/dL (7-18) 11/27/20 21:00 Creatinine < 0.15 mg/dL (0.55-1.3) L 11/27/20 21:00 Estimated GFR > 90 mL/min (=/>90) 11/27/20 21:00 Glucose 86 mg/dL (74-106) 11/27/20 21:00 Lactic Acid 1.7 mmol/L (0.4-2.0) 11/27/20 21:00 Calcium 7.5 mg/dL (8.5-10.1) L 11/27/20 21:00 Magnesium 2.1 mg/dL (1.8-2.4) 11/27/20 21:00 Total Bilirubin 0.2 mg/dL (0.2-1.0) 11/27/20 21:00 Direct Bilirubin < 0.1 mg/dL (0-0.2) 11/27/20 21:00 AST 19 U/L (15-37) 11/27/20 21:00 ALT 21 U/L (12-78) 11/27/20 21:00 Alkaline Phosphatase 120 U/L (45-117) H 11/27/20 21:00 Rapid Troponin I < 0.02 ng/mL (0.0-0.045) 11/27/20 21:00 NT-Pro-B Natriuret Pep 196 pg/mL (<125) H 11/27/20 21:00 Serum Total Protein 5.6 g/dL (6.4-8.2) L 11/27/20 21:00 Albumin 1.4 g/dL (3.4-5.0) L 11/27/20 21:00 Globulin 4.2 g/dL (2.3-3.5) H 11/27/20 21:00 Albumin/Globulin Ratio 0.3 (1.1-1.8) L 11/27/20 21:00 SARS-CoV-2 RNA (RT-PCR) Negative (NEGATIVE) 11/27/20 22:24 ABO/Rh AB POSITIVE 11/27/20 21:00 Solid Phase Ab Screen Negative 11/27/20 21:00 Medications List Reviewed: Yes Assessment And Plan - Plan Assessment 1.Sacral coccyx stage IV wound. 2.Severe malnourished. 3.Diabetes mellitus 4. anemia of chronic disease associated with malnourished. . Plan: 1. medihoney, silver alginate, cover with foam qMWF. Wound is healing well, 100% granulation tissue. Periwound tissue is clean dry and intact with no signs of acute infection. CT Pelvis could not rule out osteomyelitis-continue vanco for 6 weeks from start date (12/11) end (01/15). Will monitor renal function closely. Dose adjusted via pharmacy. Ideally would like to place wound VAC however when done in past patient rips the dressing off. 2. Continue nutrition as the patient needed for healing of his wounds. PEG t ube placed. 3. medical management per primary team. -awaiting transfer to senior living facility. -We will continue to monitor CBC-BMP, monitor for signs of infection. We will follow closely Plan of care discussed with Dr. Sosa. Thank you Dr. Hernández for consult.
[2021-01-02] MEDS: HALOPERIDOL LACT 5 MG/ML INJ IV PRN (21:40)
[2021-01-02] MEDS: MIRTAZAPINE 15 MG TAB PO SCH (21:41)
[2021-01-03] MEDS: HYDROCODONE/APAP 10/325 TAB PO PRN ×2 (04:24→20:27)
[2021-01-03] MEDS: HALOPERIDOL LACT 5 MG/ML INJ IV SCH (09:00)
[2021-01-03] MEDS: MEDIHONEY 44 ML TOPICAL TUBE TOP SCH (09:00)
[2021-01-03] MEDS: BENZTROPINE 1 MG TAB PO SCH ×2 (09:00→20:25)
[2021-01-03] MEDS: NICOTINE 21 MG/PAT TD SCH (10:40)
[2021-01-03] MEDS: MULTIVITAMINS 5 ML ORAL SYR FT SCH (10:40)
[2021-01-03] MEDS: THIAMINE HCL 100 MG TABLET FT SCH (10:41)
[2021-01-03] MEDS: MIDODRINE HCL 5 MG TABLET PO SCH ×3 (10:41→20:26)
[2021-01-03] MEDS: FOLIC ACID 1 MG TABLET FT SCH (10:42)
[2021-01-03] MEDS: GABAPENTIN 100 MG CAP FT SCH ×3 (10:42→20:26)
[2021-01-03] MEDS: RISPERIDONE 1 MG TABLET FT SCH ×2 (10:42→20:26)
[2021-01-03] MEDS: ACETAMINOPHEN 500 MG TAB FT PRN (10:43)
[2021-01-03] MEDS: VENLAFAXINE HCL 37.5 MG TAB PO SCH (10:43)
[2021-01-03] MEDS: JEVITY 1.2 CAL LIQUID 1,000 ML BOT FT SCH ×4 (10:44→20:28)
[2021-01-03] MEDS: VANCOMYCIN 750 MG in NA CHLORIDE 0.9% 250 ML IVPB SCH ×2 (10:48→21:12)
--- NOTE | 2021-01-03 11:05 | RAD REPORT ---
EXAM DESCRIPTION: RAD - Chest Single View - 01/03/2021 6:20 am CLINICAL HISTORY: Cough Chest pain. COMPARISON: Chest Single View dated 11/27/2020; Chest Single View dated 10/09/2020; Chest Single View dated 10/05/2020; Chest Single View dated 06/07/2019; Abdomen Pelvis Wo Contrast dated 12/02/2020 FINDINGS: Portable technique limits examination quality. The lungs are grossly clear. Significant enlargement/ fullness in the right peritracheal stripe is no annette. The heart is normal in size. Bilateral osteochondromas noted proximal humeri. IMPRESSION: Significant fullness in the right peritracheal stripe is noted. This has recently develo ped in may represent a mass, lymphadenopathy or a vascular abnormality. Recommend CT of the chest wit h contrast for further assessment.
[2021-01-03] MEDS: ONDANSETRON 4 MG/2 ML VIAL IV PRN (18:11)
[2021-01-03] MEDS: MIRTAZAPINE 15 MG TAB PO SCH (20:26)
[2021-01-04 07:10] LABS: Potassium 3.6 mmol/L (3.5-5.1)
[2021-01-04] MEDS ORDERED: POTASSIUM 25 MEQ EFFERV TAB PO ONE (09:00)
[2021-01-04] MEDS: BENZTROPINE 1 MG TAB PO SCH ×2 (09:00→20:52)
[2021-01-04] MEDS: JEVITY 1.2 CAL LIQUID 1,000 ML BOT FT SCH ×4 (09:00→21:00)
[2021-01-04] MEDS: HALOPERIDOL LACT 5 MG/ML INJ IV SCH (09:00)
[2021-01-04] MEDS: MEDIHONEY 44 ML TOPICAL TUBE TOP SCH (09:00)
[2021-01-04] MEDS: MIDODRINE HCL 5 MG TABLET PO SCH ×3 (10:30→20:51)
[2021-01-04] MEDS: GABAPENTIN 100 MG CAP FT SCH ×3 (10:31→20:52)
[2021-01-04] MEDS: RISPERIDONE 1 MG TABLET FT SCH ×2 (10:31→20:51)
[2021-01-04] MEDS: FOLIC ACID 1 MG TABLET FT SCH (10:31)
[2021-01-04] MEDS: THIAMINE HCL 100 MG TABLET FT SCH (10:31)
[2021-01-04] MEDS: NICOTINE 21 MG/PAT TD SCH (10:31)
[2021-01-04] MEDS: MULTIVITAMINS 5 ML ORAL SYR FT SCH (10:32)
[2021-01-04] MEDS: VENLAFAXINE HCL 37.5 MG TAB PO SCH (10:32)
[2021-01-04] MEDS: VANCOMYCIN 750 MG in NA CHLORIDE 0.9% 250 ML IVPB SCH ×2 (10:57→20:52)
[2021-01-04] MEDS: HYDROCODONE/APAP 10/325 TAB PO PRN (16:26)
--- NOTE | 2021-01-04 20:45 | P.PN ---
Date of Service: 01/04/21 Subjective No new changes; awaiting placement Review of Systems 10-point ROS is otherwise unremarkable Physical Examination - Vital Signs Reviewed - Physical Exam General: Alert, In no apparent distress, Oriented x3 Assessment & Plan - Problems (Diagnosis) (1) Malnutrition Current Visit: Yes Status: Acute (2) S/P percutaneous endoscopic gastrostomy (PEG) tube placement Current Visit: Yes Status: Acute (3) Sacral decubitus ulcer, stage IV Current Visit: Yes Status: Acute (4) Achalasia Current Visit: Yes Status: Acute (5) Bipolar 1 disorder Current Visit: Yes Status: Acute (6) Schizophrenia Current Visit: Yes Status: Acute - Plan Continue with plan of care as mentioned below 1. Awaiting placement 2. Continue tube feedings 3. Protein supplementation as necessary 4. Wound care 5. Pain control; 6. antipsychosis 7. DVT prophylaxis
--- NOTE | 2021-01-04 20:45 | P.PN ---
Date of Service: 01/02/21 Subjective No new changes; no c/o Review of Systems 10-point ROS is otherwise unremarkable Physical Examination - Vital Signs Reviewed - Physical Exam General: Alert, In no apparent distress, Oriented x3 Assessment & Plan - Problems (Diagnosis) (1) Malnutrition Current Visit: Yes Status: Acute (2) S/P percutaneous endoscopic gastrostomy (PEG) tube placement Current Visit: Yes Status: Acute (3) Sacral decubitus ulcer, stage IV Current Visit: Yes Status: Acute (4) Achalasia Current Visit: Yes Status: Acute (5) Bipolar 1 disorder Current Visit: Yes Status: Acute (6) Schizophrenia Current Visit: Yes Status: Acute - Plan Continue with plan of care as mentioned below 1. Awaiting placement... 2. Continue tube feedings 3. Protein supplementation as necessary 4. Wound care 5. Pain control; 6. antipsychosis 7. DVT prophylaxis
--- NOTE | 2021-01-04 20:46 | P.PN ---
Date of Service: 01/03/21 Subjective No new changes; c/o of being hungry; some dysphagia so cautiouly oral feeds Review of Systems 10-point ROS is otherwise unremarkable Physical Examination - Vital Signs Reviewed - Physical Exam General: Alert, In no apparent distress, Oriented x3 Assessment & Plan - Problems (Diagnosis) (1) Malnutrition Current Visit: Yes Status: Acute (2) S/P percutaneous endoscopic gastrostomy (PEG) tube placement Current Visit: Yes Status: Acute (3) Sacral decubitus ulcer, stage IV Current Visit: Yes Status: Acute (4) Achalasia Current Visit: Yes Status: Acute (5) Bipolar 1 disorder Current Visit: Yes Status: Acute (6) Schizophrenia Current Visit: Yes Status: Acute - Plan No changes; plan as mentioned below; 1. Awaiting placement... 2. Continue tube feedings 3. Protein supplementation as necessary 4. Wound care 5. Pain control; 6. antipsychosis 7. DVT prophylaxis
--- NOTE | 2021-01-04 20:47 | P.PN ---
Date of Service: 01/04/21 Subjective No new changes; Review of Systems 10-point ROS is otherwise unremarkable Physical Examination - Vital Signs Reviewed - Physical Exam General: Alert, In no apparent distress, Oriented x3 Assessment & Plan - Problems (Diagnosis) (1) Malnutrition Current Visit: Yes Status: Acute (2) S/P percutaneous endoscopic gastrostomy (PEG) tube placement Current Visit: Yes Status: Acute (3) Sacral decubitus ulcer, stage IV Current Visit: Yes Status: Acute (4) Achalasia Current Visit: Yes Status: Acute (5) Bipolar 1 disorder Current Visit: Yes Status: Acute (6) Schizophrenia Current Visit: Yes Status: Acute - Plan No changes; plan as mentioned below; 1. Awaiting placement... 2. Continue tube feedings 3. Protein supplementation as necessary 4. Wound care 5. Pain control; 6. antipsychosis 7. DVT prophylaxis
[2021-01-04] MEDS: MIRTAZAPINE 15 MG TAB PO SCH (20:52)
[2021-01-05 06:15] LABS: BUN Blood Urea Nitrogen 8 mg/dL (7-18); Bicarbonate 31 mmol/L (21-32); Glucose Level 71 mg/dL (74-106); Potassium 3.6 mmol/L (3.5-5.1); Sodium Level 146 mmol/L (136-145)
[2021-01-05] MEDS ORDERED: POTASSIUM 25 MEQ EFFERV TAB PO ONE (09:00)
[2021-01-05] MEDS: NICOTINE 21 MG/PAT TD SCH (09:00)
[2021-01-05] MEDS: RISPERIDONE 1 MG TABLET FT SCH ×2 (09:00→20:45)
[2021-01-05] MEDS: THIAMINE HCL 100 MG TABLET FT SCH (09:00)
[2021-01-05] MEDS: GABAPENTIN 100 MG CAP FT SCH ×3 (09:00→20:45)
[2021-01-05] MEDS: MEDIHONEY 44 ML TOPICAL TUBE TOP SCH (09:00)
[2021-01-05] MEDS: FOLIC ACID 1 MG TABLET FT SCH (09:00)
[2021-01-05] MEDS: BENZTROPINE 1 MG TAB PO SCH ×2 (09:00→20:47)
[2021-01-05] MEDS: VENLAFAXINE HCL 37.5 MG TAB PO SCH (09:00)
[2021-01-05] MEDS: JEVITY 1.2 CAL LIQUID 1,000 ML BOT FT SCH ×3 (09:00→20:00)
[2021-01-05] MEDS: MIDODRINE HCL 5 MG TABLET PO SCH ×3 (09:00→20:45)
[2021-01-05] MEDS: MULTIVITAMINS 5 ML ORAL SYR FT SCH (09:00)
[2021-01-05] MEDS: VANCOMYCIN 750 MG in NA CHLORIDE 0.9% 250 ML IVPB SCH ×2 (10:00→22:07)
[2021-01-05] MEDS: HYDROCODONE/APAP 10/325 TAB PO PRN ×2 (10:10→16:09)
--- NOTE | 2021-01-05 11:06 | P.PN ---
Subjective Date of Service: 01/05/21 Primary Care Provider: none Chief Complaint: Debility, achalasia, sacral decubitus Subjective: Doing well Physical Examination - Vital Signs Temperature: 98.1 F Blood Pressure: 92/55 Pulse: 92 Respirations: 15 Pulse Ox (%): 100 - Physical Exam Other Physical/Emotional Findings: General: Alert, In no apparent distress, Cachectic, Other (severe malnutrition ). HEENT: Atraumatic, Normocephalic, PERRLA. Neck: Supple, 2+ carotid pulse no bruit, JVD not distended, No Thyromegaly. Respiratory: Clear to auscultation bilaterally, Normal air movement. Cardiovascular: No edema, Normal pulses, Regular rate/rhythm. Capillary refill: <2 Seconds. Gastrointestinal: Normal bowel sounds, Soft and benign, PEG tube placed. Musculoskeletal: Other (diffuse muscle wasting ). Integumentary: Other (sacral stage 4 wound-healing. Base of wound shows 100% granulation tissue, No drainage from wound bed. Periwound tissue is clean, dry, intact with no signs of acute infection. ). Urinary: Baltazar catheter - Studies Medications List Reviewed: Yes Assessment & Plan Discharge Plan: Other (Home vs snf) Plan to discharge in: Greater than 2 days Physician Review Additional Text: Physical exam: Patient alert, cooperative. No complaints noted. No new changes. Heart: Regular rate Lungs: Clear Abdomen: Soft Extremities: Muscle wasting throughout. Exam unchanged Impression: Debility, severe malnutrition secondary to achalasia now with PEG tube Large left hip decubitus stage 3-4 ulcer History of Diabetes mellitus type 2 Bipolar disorder/schizophrenia Anemia of chronic disease Plan Debility, severe malnutrition secondary to achalasia now with PEG tube: No new changes. Spoke with social worker health services about plan of care. Still waiting for SSRI approval to go to a assisted. Options are very limited. May need to think about sending him home initially before this is ever approved. Will discuss with family. Will check to see what patient's needs are. Patient still needs treatment for decubitus. Final day of treatment will be January 15. May need to look at January 15 as a target date for home discharge if not approved for assisted. Large left hip decubitus stage 4: Continue wound healing. Continue with Infectious Disease recommendations. Continue IV vancomycin. End date for vancomycin will be January 15. Pharmacy to monitor and adjust appropriately. History of Diabetes mellitus type 2: Hemoglobin A1c 5.2. No diabetes. Blood sugar slightly low. Encourage oral intake. Dietary may need to adjust PEG tube feeds. Bipolar disorder/schizophrenia: Continue current medication. Will discuss with Psychiatry. Anemia of chronic disease: Stable. Continue with supplementation. Time Spent Managing Pts Care (In Minutes): 55
[2021-01-05] MEDS: ONDANSETRON 4 MG/2 ML VIAL IV PRN (13:05)
[2021-01-05] MEDS: MIRTAZAPINE 15 MG TAB PO SCH (20:45)
[2021-01-05] MEDS: HALOPERIDOL LACT 5 MG/ML INJ IV PRN (20:45)
[2021-01-06] MEDS: HYDROCODONE/APAP 10/325 TAB PO PRN ×3 (03:10→20:12)
[2021-01-06 06:23] LABS: BUN Blood Urea Nitrogen 8 mg/dL (7-18); Bicarbonate 30 mmol/L (21-32); Glucose Level 129 mg/dL (74-106); Potassium 3.9 mmol/L (3.5-5.1); Sodium Level 146 mmol/L (136-145)
[2021-01-06] MEDS: JEVITY 1.2 CAL LIQUID 1,000 ML BOT FT SCH ×2 (07:19→22:35)
[2021-01-06] MEDS: MEDIHONEY 44 ML TOPICAL TUBE TOP SCH (07:20)
[2021-01-06] MEDS: BENZTROPINE 1 MG TAB PO SCH ×2 (09:00→21:00)
--- NOTE | 2021-01-06 09:01 | P.PN ---
Subjective Date of Service: 01/06/21 Primary Care Provider: none Chief Complaint: Debility, achalasia, sacral decubitus Subjective: Doing well Physical Examination - Vital Signs Temperature: 99.0 F Blood Pressure: 101/66 Pulse: 85 Respirations: 18 Pulse Ox (%): 98 - Physical Exam Other Physical/Emotional Findings: General: Alert, In no apparent distress, Cachectic, Other (severe malnutrition ). HEENT: Atraumatic, Normocephalic, PERRLA. Neck: Supple, 2+ carotid pulse no bruit, JVD not distended, No Thyromegaly. Respiratory: Clear to auscultation bilaterally, Normal air movement. Cardiovascular: No edema, Normal pulses, Regular rate/rhythm. Capillary refill: <2 Seconds. Gastrointestinal: Normal bowel sounds, Soft and benign, PEG tube placed. Musculoskeletal: Other (diffuse muscle wasting ). Integumentary: Other (sacral stage 4 wound-healing. Base of wound shows 100% granulation tissue, No drainage from wound bed. Periwound tissue is clean, dry, intact with no signs of acute infection. ). Urinary: Baltazar catheter - Studies Medications List Reviewed: Yes Assessment & Plan Discharge Plan: Other (group home placement versus home) Plan to discharge in: Greater than 2 days Physician Review Additional Text: Physical exam: Patient alert, cooperative. No complaints noted. No new changes. Heart: Regular rate Lungs: Clear Abdomen: Soft Extremities: Muscle wasting throughout. Exam unchanged Impression: Debility, severe malnutrition secondary to achalasia now with PEG tube Large left hip decubitus stage 3-4 ulcer History of Diabetes mellitus type 2 Bipolar disorder/schizophrenia Anemia of chronic disease Plan Debility, severe malnutrition secondary to achalasia now with PEG tube: Nursing to adjust diet. Spoke with social insurance specialist about plan of care. Still waiting for SSRI approval to go to a retirement. Options are very limited. May need to think about sending him home initially before this is ever approved. This was discussed with family in detail. Family understands. Family will continue to check to see as early as next week if approved for disability. Patient still needs treatment for decubitus. Final day of treatment will be January 15. Will target January 15 as possible day of discharge to family if still not approved for disability and to retirement. Family appears to be in agreement. Spoke with family member yesterday. Large left hip decubitus stage 4: Continue wound healing. Continue with Infectious Disease recommendations. Continue IV vancomycin. End date for vancomycin will be January 15. Pharmacy to monitor and adjust appropriately. History of Diabetes mellitus type 2: Hemoglobin A1c 5.2. No diabetes. Blood sugar slightly low. Encourage oral intake. Dietary may need to adjust PEG tube feeds. Bipolar disorder/schizophrenia: Continue current medication. Will discuss with Psychiatry. Anemia of chronic disease: Stable. Continue with supplementation. Time Spent Managing Pts Care (In Minutes): 55
[2021-01-06] MEDS: MIDODRINE HCL 5 MG TABLET PO SCH ×3 (09:18→22:32)
[2021-01-06] MEDS: RISPERIDONE 1 MG TABLET FT SCH ×2 (09:18→22:34)
[2021-01-06] MEDS: FOLIC ACID 1 MG TABLET FT SCH (09:18)
[2021-01-06] MEDS: GABAPENTIN 100 MG CAP FT SCH ×3 (09:18→22:31)
[2021-01-06] MEDS: MULTIVITAMINS 5 ML ORAL SYR FT SCH (09:19)
[2021-01-06] MEDS: VENLAFAXINE HCL 37.5 MG TAB PO SCH (09:19)
[2021-01-06] MEDS: THIAMINE HCL 100 MG TABLET FT SCH (09:19)
[2021-01-06] MEDS: NICOTINE 21 MG/PAT TD SCH (09:19)
[2021-01-06] MEDS: VANCOMYCIN 750 MG in NA CHLORIDE 0.9% 250 ML IVPB SCH ×2 (09:20→22:34)
--- NOTE | 2021-01-06 13:20 | P.PN ---
Subjective Date of Service: 01/06/21 Primary Care Provider: none Chief Complaint: Debility, achalasia, sacral decubitus Patient seen and examined at bedside. Her nurse patient has had a few episodes of vomiting today. Review of Systems 10-point ROS is otherwise unremarkable Physical Examination - Vital Signs Temperature: 99.0 F Blood Pressure: 101/66 Pulse: 85 Respirations: 18 Pulse Ox (%): 98 - Physical Exam Other Physical/Emotional Findings: General: Alert, In no apparent distress, Cachectic, Other (severe malnutrition ). HEENT: Atraumatic, Normocephalic, PERRLA. Neck: Supple, 2+ carotid pulse no bruit, JVD not distended, No Thyromegaly. Respiratory: Clear to auscultation bilaterally, Normal air movement. Cardiovascular: No edema, Normal pulses, Regular rate/rhythm. Capillary refill: <2 Seconds. Gastrointestinal: Normal bowel sounds, Soft and benign, PEG tube placed. Musculoskeletal: Other (diffuse muscle wasting ). Integumentary: Other (sacral stage 4 wound-healing. Base of wound shows 100% granulation tissue, No drainage from wound bed. Periwound tissue is clean, dry, intact with no signs of acute infection. ). Urinary: Baltazar catheter - Studies Laboratory Last Values WBC 5.30 K/uL (4.3-10.9) 11/27/20 21:00 RBC 2.85 M/uL (4.33-5.43) L 11/27/20 21:00 Hgb 8.8 g/dL (13.6-17.9) L 11/27/20 21:00 Hct 25.7 % (39.6-49.0) L 11/27/20 21:00 MCV 90.3 fL (80-100) D 11/27/20 21:00 MCH 30.8 pg (27.0-35.0) 11/27/20 21:00 MCHC 34.1 g/dL (32.0-36.0) 11/27/20 21:00 RDW 19.8 % (12.1-15.2) H 11/27/20 21:00 Plt Count 377 K/uL (152-406) 11/27/20 21:00 MPV 8.2 fL (7.6-11.3) 11/27/20 21:00 Neutrophils % 59.2 % (41.7-73.7) 11/27/20 21:00 Lymphocytes % 29.0 % (15.3-44.8) 11/27/20 21:00 Monocytes % 11.4 % (3.3-12.3) 11/27/20 21:00 Eosinophils % 0.2 % (0-4.4) 11/27/20 21:00 Basophils % 0.2 % (0-1.3) 11/27/20 21:00 Absolute Neutrophils 3.1 K/uL (1.8-8.0) 11/27/20 21:00 Absolute Lymphocytes 1.5 K/uL (0.7-4.9) 11/27/20 21:00 Absolute Monocytes 0.6 K/uL (0.1-1.3) 11/27/20 21:00 Absolute Eosinophils 0.0 K/uL (0-0.5) 11/27/20 21:00 Absolute Basophils 0.0 K/uL (0-0.5) 11/27/20 21:00 PT 11.8 SECONDS (9.5-12.5) 11/27/20 21:00 INR 1.03 11/27/20 21:00 Sodium 141 mmol/L (136-145) 11/27/20 21:00 Potassium 4.5 mmol/L (3.5-5.1) 11/27/20 21:00 Chloride 106 mmol/L (98-107) 11/27/20 21:00 Carbon Dioxide 33 mmol/L (21-32) H 11/27/20 21:00 BUN 8 mg/dL (7-18) 11/27/20 21:00 Creatinine < 0.15 mg/dL (0.55-1.3) L 11/27/20 21:00 Estimated GFR > 90 mL/min (=/>90) 11/27/20 21:00 Glucose 86 mg/dL (74-106) 11/27/20 21:00 Lactic Acid 1.7 mmol/L (0.4-2.0) 11/27/20 21:00 Calcium 7.5 mg/dL (8.5-10.1) L 11/27/20 21:00 Magnesium 2.1 mg/dL (1.8-2.4) 11/27/20 21:00 Total Bilirubin 0.2 mg/dL (0.2-1.0) 11/27/20 21:00 Direct Bilirubin < 0.1 mg/dL (0-0.2) 11/27/20 21:00 AST 19 U/L (15-37) 11/27/20 21:00 ALT 21 U/L (12-78) 11/27/20 21:00 Alkaline Phosphatase 120 U/L (45-117) H 11/27/20 21:00 Rapid Troponin I < 0.02 ng/mL (0.0-0.045) 11/27/20 21:00 NT-Pro-B Natriuret Pep 196 pg/mL (<125) H 11/27/20 21:00 Serum Total Protein 5.6 g/dL (6.4-8.2) L 11/27/20 21:00 Albumin 1.4 g/dL (3.4-5.0) L 11/27/20 21:00 Globulin 4.2 g/dL (2.3-3.5) H 11/27/20 21:00 Albumin/Globulin Ratio 0.3 (1.1-1.8) L 11/27/20 21:00 SARS-CoV-2 RNA (RT-PCR) Negative (NEGATIVE) 11/27/20 22:24 ABO/Rh AB POSITIVE 11/27/20 21:00 Solid Phase Ab Screen Negative 11/27/20 21:00 Medications List Reviewed: Yes Assessment And Plan - Plan Assessment 1.Sacral coccyx stage IV wound. 2.Severe malnourished. 3.Diabetes mellitus 4. anemia of chronic disease associated with malnourished. . Plan: 1. medihoney, silver alginate, cover with foam qMWF. Wound is healing well, 100% granulation tissue. Periwound tissue is clean dry and intact with no signs of acute infection. CT Pelvis could not rule out osteomyelitis-continue vanco for 6 weeks from start date (12/11) end (01/15). Will monitor renal function closely. Dose adjusted via pharmacy. Ideally would like to place wound VAC however when done in past patient rips the dressing off. 2. Continue nutrition as the patient needed for healing of his wounds. PEG tube placed. 3. medical management per primary team. -awaiting transfer to longterm facility. -We will continue to monitor CBC-BMP, monitor for signs of infection. We will follow closely Plan of care discussed with Dr. Sosa. Thank you Dr. Hernández for consult.
[2021-01-06] MEDS: MIRTAZAPINE 15 MG TAB PO SCH (22:34)
[2021-01-07] MEDS: HYDROCODONE/APAP 10/325 TAB PO PRN ×2 (05:10→20:34)
[2021-01-07] MEDS: MEDIHONEY 44 ML TOPICAL TUBE TOP SCH (09:00)
[2021-01-07] MEDS: JEVITY 1.2 CAL LIQUID 1,000 ML BOT FT SCH ×2 (09:00→21:07)
[2021-01-07] MEDS: BENZTROPINE 1 MG TAB PO SCH ×2 (09:00→21:00)
[2021-01-07] MEDS: VENLAFAXINE HCL 37.5 MG TAB PO SCH (10:29)
[2021-01-07] MEDS: MULTIVITAMINS 5 ML ORAL SYR FT SCH (10:29)
[2021-01-07] MEDS: FOLIC ACID 1 MG TABLET FT SCH (10:29)
[2021-01-07] MEDS: THIAMINE HCL 100 MG TABLET FT SCH (10:29)
[2021-01-07] MEDS: RISPERIDONE 1 MG TABLET FT SCH ×2 (10:30→21:10)
[2021-01-07] MEDS: MIDODRINE HCL 5 MG TABLET PO SCH ×3 (10:30→21:10)
[2021-01-07] MEDS: GABAPENTIN 100 MG CAP FT SCH ×3 (10:30→21:10)
[2021-01-07] MEDS: NICOTINE 21 MG/PAT TD SCH (10:31)
[2021-01-07] MEDS: VANCOMYCIN 750 MG in NA CHLORIDE 0.9% 250 ML IVPB SCH ×2 (10:45→21:10)
--- NOTE | 2021-01-07 11:06 | P.PN ---
Subjective Date of Service: 01/07/21 Primary Care Provider: none Chief Complaint: Debility, achalasia, sacral decubitus Subjective: Improving, Doing well Physical Examination - Vital Signs Temperature: 98.1 F Blood Pressure: 112/81 Pulse: 87 Respirations: 16 Pulse Ox (%): 100 - Physical Exam Other Physical/Emotional Findings: General: Alert, In no apparent distress, Cachectic, Other (severe malnutrition ). HEENT: Atraumatic, Normocephalic, PERRLA. Neck: Supple, 2+ carotid pulse no bruit, JVD not distended, No Thyromegaly. Respiratory: Clear to auscultation bilaterally, Normal air movement. Cardiovascular: No edema, Normal pulses, Regular rate/rhythm. Cap illary refill: <2 Seconds. Gastrointestinal: Normal bowel sounds, Soft and benign, PEG tube placed. Musculoskeletal: Other (diffuse muscle wasting ). Integumentary: Other (sacral stage 4 wound-healing. Base of wound shows 100% granulation tissue, No drainage from wound bed. Periwound tissue is clean, dry, intact with no signs of acute infection. ). Urinary: Baltazar catheter - Studies Medications List Reviewed: Yes Assessment & Plan Discharge Plan: Home Plan to discharge in: Greater than 2 days Physician Review Additional Text: Physical exam: Patient alert, cooperative. No complaints noted. No new changes. Heart: Regular rate Lungs: Clear Abdomen: Soft Extremities: Muscle wasting throughout. Exam unchanged Impression: Debility, severe malnutrition secondary to achalasia now with PEG tube Large left hip decubitus stage 3-4 ulcer History of Diabetes mellitus type 2 Bipolar disorder/schizophrenia Anemia of chronic disease Plan Debility, severe malnutrition secondary to achalasia now with PEG tube: Will have dietary continue to address diet. Will need to transition to something that he will be able to afford at discharge. Spoke with director of social services about plan of care. Still waiting for SSRI approval to go to a senior living. Options are very limited. May need to think about sending him home initially before this is ever approved. This was discussed with family in detail. Family understands and agrees. Family will continue to check to see as early as next week if approved for disability. Patient still needs treatment for decubitus. Final day of treatment will be January 15. Will target January 15 as possible day of discharge to family if still not approved for disability and to senior living. Family appears to be in agreement. Large left hip decubitus stage 4: Continue wound healing. Continue with Infectious Disease recommendations. Continue IV vancomycin. End date for vancomycin will be January 15. Pharmacy to monitor and adjust appropriately. History of Diabetes mellitus type 2: Hemoglobin A1c 5.2. No diabetes. Blood sugar slightly low. Encourage oral intake. Dietary may need to adjust PEG tube feeds. Bipolar disorder/schizophrenia: Continue current medication. Stable. Anemia of chronic disease: Stable. Continue with supplementation. Time Spent Managing Pts Care (In Minutes): 55
--- NOTE | 2021-01-07 11:45 | P.PN ---
Subjective Date of Service: 01/07/21 Primary Care Provider: none Chief Complaint: Debility, achalasia, sacral decubitus Patient seen and examined at bedside. Doing well-afebrile. Tolerating antibiotics well. Review of Systems 10-point ROS is otherwise unremarkable Physical Examination - Vital Signs Temperature: 98.1 F Blood Pressure: 112/81 Pulse: 87 Respirations: 16 Pulse Ox (%): 100 - Studies Medications List Reviewed: Yes Assessment And Plan - Plan Physical Exam: General: Alert, In no apparent distress, Cachectic, Other (severe malnutrition ) HEENT: Atraumatic, Normocephalic, PERRLA Neck: Supple, 2+ carotid pulse no bruit, JVD not distended, No Thyromegaly Respiratory: Clear to auscultation bilaterally, Normal air movement Cardiovascular: No edema, Normal pulses, Regular rate/rhythm Capillary refill: <2 Seconds Gastrointestinal: Normal bowel sounds, Soft and benign, PEG tube placed Musculoskeletal: Other (diffuse muscle wasting ) Integumentary: Other (sacral stage 4 wound-healing. Base of wound shows 100% granulation tissue, No drainage from wound bed. Periwound tissue is clean, dry, intact with no signs of acute infection. ) Urinary: Baltazar catheter Assessment 1.Sacral coccyx stage IV wound. 2.Severe malnourished. 3.Diabetes mellitus 4. anemia of chronic disease associated with malnourished. . Plan: 1. medihoney, silver alginate, cover with foam qMWF. Wound is healing well, 100% granulation tissue. Periwound tissue is clean dry and intact with no signs of acute infection. CT Pelvis could not rule out osteomyelitis-continue vanco for 6 weeks from start date (12/11) end (01/15). Will monitor renal function closely. Dose adjusted via pharmacy. Ideally would like to place wound VAC however when done in past patient rips the dressing off. 2. Continue nutrition as the patient needed for healing of his wounds. PEG tube placed. 3. medical management per primary team. -awaiting transfer to nursing home facility. -We will continue to monitor CBC-BMP, monitor for signs of infection. We will follow closely Plan of care discussed with Dr. Sosa. Thank you Dr. Hernández for consult.
[2021-01-07] MEDS: MIRTAZAPINE 15 MG TAB PO SCH (21:08)
[2021-01-08] MEDS: HYDROCODONE/APAP 10/325 TAB PO PRN ×2 (04:27→15:52)
[2021-01-08] MEDS: NICOTINE 21 MG/PAT TD SCH (09:48)
[2021-01-08] MEDS: VENLAFAXINE HCL 37.5 MG TAB PO SCH (09:48)
[2021-01-08] MEDS: MULTIVITAMINS 5 ML ORAL SYR FT SCH (09:48)
[2021-01-08] MEDS: BENZTROPINE 1 MG TAB PO SCH ×2 (09:49→20:41)
[2021-01-08] MEDS: RISPERIDONE 1 MG TABLET FT SCH ×2 (09:49→20:40)
[2021-01-08] MEDS: FOLIC ACID 1 MG TABLET FT SCH (09:49)
[2021-01-08] MEDS: THIAMINE HCL 100 MG TABLET FT SCH (09:49)
[2021-01-08] MEDS: GABAPENTIN 100 MG CAP FT SCH ×3 (09:49→20:41)
[2021-01-08] MEDS: MIDODRINE HCL 5 MG TABLET PO SCH ×3 (09:53→20:40)
[2021-01-08] MEDS: VANCOMYCIN 750 MG in NA CHLORIDE 0.9% 250 ML IVPB SCH ×2 (10:00→15:52)
--- NOTE | 2021-01-08 10:52 | P.PN ---
Subjective Date of Service: 01/08/21 Primary Care Provider: none Chief Complaint: Debility, achalasia, sacral decubitus Patient seen and examined at bedside. Denies pain. Will repeat cultures on 01/15 following completed course of antibiotics. Review of Systems 10-point ROS is otherwise unremarkable Physical Examination - Vital Signs Temperature: 97.7 F Blood Pressure: 118/76 Pulse: 76 Respirations: 14 Pulse Ox (%): 99 - Studies Laboratory Last Values WBC 5.30 K/uL (4.3-10.9) 11/27/20 21:00 RBC 2.85 M/uL (4.33-5.43) L 11/27/20 21:00 Hgb 8.8 g/dL (13.6-17.9) L 11/27/20 21:00 Hct 25.7 % (39.6-49.0) L 11/27/20 21:00 MCV 90.3 fL (80-100) D 11/27/20 21:00 MCH 30.8 pg (27.0-35.0) 11/27/20 21:00 MCHC 34.1 g/dL (32.0-36.0) 11/27/20 21:00 RDW 19.8 % (12.1-15.2) H 11/27/20 21:00 Plt Count 377 K/uL (152-406) 11/27/20 21:00 MPV 8.2 fL (7.6-11.3) 11/27/20 21:00 Neutrophils % 59.2 % (41.7-73.7) 11/27/20 21:00 Lymphocytes % 29.0 % (15.3-44.8) 11/27/20 21:00 Monocytes % 11.4 % (3.3-12.3) 11/27/20 21:00 Eosinophils % 0.2 % (0-4.4) 11/27/20 21:00 Basophils % 0.2 % (0-1.3) 11/27/20 21:00 Absolute Neutrophils 3.1 K/uL (1.8-8.0) 11/27/20 21:00 Absolute Lymphocytes 1.5 K/uL (0.7-4.9) 11/27/20 21:00 Absolute Monocytes 0.6 K/uL (0.1-1.3) 11/27/20 21:00 Absolute Eosinophils 0.0 K/uL (0-0.5) 11/27/20 21:00 Absolute Basophils 0.0 K/uL (0-0.5) 11/27/20 21:00 PT 11.8 SECONDS (9.5-12.5) 11/27/20 21:00 INR 1.03 11/27/20 21:00 Sodium 141 mmol/L (136-145) 11/27/20 21:00 Potassium 4.5 mmol/L (3.5-5.1) 11/27/20 21:00 Chloride 106 mmol/L (98-107) 11/27/20 21:00 Carbon Dioxide 33 mmol/L (21-32) H 11/27/20 21:00 BUN 8 mg/dL (7-18) 11/27/20 21:00 Creatinine < 0.15 mg/dL (0.55-1.3) L 11/27/20 21:00 Estimated GFR > 90 mL/min (=/>90) 11/27/20 21:00 Glucose 86 mg/dL (74-106) 11/27/20 21:00 Lactic Acid 1.7 mmol/L (0.4-2.0) 11/27/20 21:00 Calcium 7.5 mg/dL (8.5-10.1) L 11/27/20 21:00 Magnesium 2.1 mg/dL (1.8-2.4) 11/27/20 21:00 Total Bilirubin 0.2 mg/dL (0.2-1.0) 11/27/20 21:00 Direct Bilirubin < 0.1 mg/dL (0-0.2) 11/27/20 21:00 AST 19 U/L (15-37) 11/27/20 21:00 ALT 21 U/L (12-78) 11/27/20 21:00 Alkaline Phosphatase 120 U/L (45-117) H 11/27/20 21:00 Rapid Troponin I < 0.02 ng/mL (0.0-0.045) 11/27/20 21:00 NT-Pro-B Natriuret Pep 196 pg/mL (<125) H 11/27/20 21:00 Serum Total Protein 5.6 g/dL (6.4-8.2) L 11/27/20 21:00 Albumin 1.4 g/dL (3.4-5.0) L 11/27/20 21:00 Globulin 4.2 g/dL (2.3-3.5) H 11/27/20 21:00 Albumin/Globulin Ratio 0.3 (1.1-1.8) L 11/27/20 21:00 SARS-CoV-2 RNA (RT-PCR) Negative (NEGATIVE) 11/27/20 22:24 ABO/Rh AB POSITIVE 11/27/20 21:00 Solid Phase Ab Screen Negative 11/27/20 21:00 Medications List Reviewed: Yes Assessment And Plan - Plan Physical Exam: General: Alert, In no apparent distress, Cachectic, Other (severe malnutrition ) HEENT: Atraumatic, Normocephalic, PERRLA Neck: Supple, 2+ carotid pulse no bruit, JVD not distended, No Thyromegaly Respiratory: Clear to auscultation bilaterally, Normal air movement Cardiovascular: No edema, Normal pulses, Regular rate/rhythm Capillary refill: <2 Seconds Gastrointestinal: Normal bowel sounds, Soft and benign, PEG tube placed Musculoskeletal: Other (diffuse muscle wasting ) Integumentary: Other (sacral stage 4 wound-healing. Base of wound shows 100% granulation tissue, No drainage from wound bed. Periwound tissue is clean, dry, intact with no signs of acute infection. ) Urinary: Baltazar catheter Assessment 1.Sacral coccyx stage IV wound. 2.Severe malnourished. 3.Diabetes mellitus 4. anemia of chronic disease associated with malnourished. . Plan: 1. medihoney, silver alginate, cover with foam qMWF. Wound is healing well, 100% granulation tissue. Periwound tissue is clean dry and intact with no signs of acute infection. CT Pelvis could not rule out osteomyelitis-continue vanco for 6 weeks from start date (12/11) end (01/15). Will monitor renal function closely. Dose adjusted via pharmacy. Ideally would like to place wound VAC however when done in past patient rips the dressing off. 2. Continue nutrition as the patient needed for healing of his wounds. PEG t ube placed. 3. medical management per primary team. -awaiting transfer to senior living facility. -We will continue to monitor CBC-BMP, monitor for signs of infection. We will follow closely Plan of care discussed with Dr. Sosa. Thank you Dr. Hernández for consult.
[2021-01-08 12:59] LABS: BUN Blood Urea Nitrogen 8 mg/dL (7-18); Bicarbonate 25 mmol/L (21-32); Glucose Level 98 mg/dL (74-106); Potassium 4.3 mmol/L (3.5-5.1); Sodium Level 146 mmol/L (136-145)
--- NOTE | 2021-01-08 15:39 | P.PN ---
Subjective Date of Service: 01/08/21 Primary Care Provider: none Chief Complaint: Debility, achalasia, sacral decubitus Subjective: Doing well Physical Examination - Vital Signs Temperature: 97.6 F Blood Pressure: 114/68 Pulse: 78 Respirations: 14 Pulse Ox (%): 100 - Physical Exam Other Physical/Emotional Findings: General: Alert, In no apparent distress, Cachectic, Other (severe malnutrition ). HEENT: Atraumatic, Normocephalic, PERRLA. Neck: Supple, 2+ carotid pulse no bruit, JVD not distended, No Thyromegaly. Respiratory: Clear to auscultation bilaterally, Normal air movement. Cardiovascular: No edema, Normal pulses, Regular rate/rhythm. Capillary refill: <2 Seconds. Gastrointestinal: Normal bowel sounds, Soft and benign, PEG tube placed. Musculoskeletal: Other (diffuse muscle wasting ). Integumentary: Other (sacral stage 4 wound-healing. Base of wound shows 100% granulation tissue, No drainage from wound bed. Periwound tissue is clean, dry, intact with no signs of acute infection. ). Urinary: Baltazar catheter - Studies Medications List Reviewed: Yes Assessment & Plan Discharge Plan: Other (NH vs Home) Plan to discharge in: Greater than 2 days Physician Review Additional Text: Physical exam: Patient alert, cooperative. No complaints noted. No new changes. Heart: Regular rate Lungs: Clear Abdomen: Soft Extremities: Muscle wasting throughout. Exam unchanged Impression: Debility, severe malnutrition secondary to achalasia now with PEG tube Large left hip decubitus stage 3-4 ulcer History of Diabetes mellitus type 2 Bipolar disorder/schizophrenia Anemia of chronic disease Plan Debility, severe malnutrition secondary to achalasia now with PEG tube: No new changes. Will have dietary continue to address diet. Will need to transition to something that he will be able to afford at discharge. Social work actively working on this. May need patient assistance for tube feeds. Still waiting for SSRI approval to go to a group home. Options are very limited. May need to think about sending him home initially before this is ever approved. This was discussed with family in detail. Family understands and agrees. Family will continue to check to see as early as next week if approved for disability. Patient still needs treatment for decubitus. Final day of treatment will be January 15. Will target January 15 as possible day of discharge to family if still not approved for disability and to group home. Family appears to be in agreement. Large left hip decubitus stage 4: Continue wound healing. Continue with Infectious Disease recommendations. Continue IV vancomycin. End date for vancomycin will be January 15. Pharmacy to monitor and adjust appropriately. History of Diabetes mellitus type 2: Hemoglobin A1c 5.2. No diabetes. Blood sugar slightly low. Encourage oral intake. Dietary may need to adjust PEG tube feeds. Bipolar disorder/schizophrenia: Continue current medication. Stable. Anemia of chronic disease: Stable. Continue with supplementation. Time Spent Managing Pts Care (In Minutes): 55
[2021-01-08] MEDS: MEDIHONEY 44 ML TOPICAL TUBE TOP SCH (15:53)
[2021-01-08] MEDS: JEVITY 1.2 CAL LIQUID 1,000 ML BOT FT SCH (20:00)
[2021-01-08] MEDS: MIRTAZAPINE 15 MG TAB PO SCH (20:41)
[2021-01-08] MEDS: HALOPERIDOL LACT 5 MG/ML INJ IV PRN (20:41)
[2021-01-09] MEDS: HYDROCODONE/APAP 10/325 TAB PO PRN ×3 (01:03→15:15)
[2021-01-09] MEDS: VANCOMYCIN 750 MG in NA CHLORIDE 0.9% 250 ML IVPB SCH ×2 (03:24→17:25)
[2021-01-09] MEDS: BENZTROPINE 1 MG TAB PO SCH ×2 (09:00→20:35)
[2021-01-09] MEDS: MEDIHONEY 44 ML TOPICAL TUBE TOP SCH (09:00)
[2021-01-09] MEDS: FOLIC ACID 1 MG TABLET FT SCH (09:04)
[2021-01-09] MEDS: ONDANSETRON 4 MG/2 ML VIAL IV PRN (09:04)
[2021-01-09] MEDS: RISPERIDONE 1 MG TABLET FT SCH ×2 (09:04→20:35)
[2021-01-09] MEDS: THIAMINE HCL 100 MG TABLET FT SCH (09:04)
[2021-01-09] MEDS: HALOPERIDOL LACT 5 MG/ML INJ IV PRN ×2 (09:04→20:35)
[2021-01-09] MEDS: GABAPENTIN 100 MG CAP FT SCH ×3 (09:04→20:35)
[2021-01-09] MEDS: clonazePAM 0.5 MG TAB PO PRN (09:04)
[2021-01-09] MEDS: NICOTINE 21 MG/PAT TD SCH (09:04)
[2021-01-09] MEDS: MULTIVITAMINS 5 ML ORAL SYR FT SCH (09:06)
[2021-01-09] MEDS: MIDODRINE HCL 5 MG TABLET PO SCH ×3 (09:08→20:36)
--- NOTE | 2021-01-09 14:07 | P.PN ---
Subjective Date of Service: 01/09/21 Primary Care Provider: none Chief Complaint: Debility, achalasia, sacral decubitus Subjective: Doing well Physical Examination - Vital Signs Temperature: 97.5 F Blood Pressure: 111/78 Pulse: 67 Respirations: 18 Pulse Ox (%): 99 - Physical Exam Other Physical/Emotional Findings: General: Alert, In no apparent distress, Cachectic, Other (severe malnutrition ). HEENT: Atraumatic, Normocephalic, PERRLA. Neck: Supple, 2+ carotid pulse no bruit, JVD not distended, No Thyromegaly. Respiratory: Clear to auscultation bilaterally, Normal air movement. Cardiovascular: No edema, Normal pulses, Regular rate/rhythm. Capillary refill: <2 Seconds. Gastrointestinal: Normal bowel sounds, Soft and benign, PEG tube placed. Musculoskeletal: Other (diffuse muscle wasting ). Integumentary: Other (sacral stage 4 wound-healing. Base of wound shows 100% granulation tissue, No drainage from wound bed. Periwound tissue is clean, dry, intact with no signs of acute infection. ). Urinary: Baltazar catheter - Studies Medications List Reviewed: Yes Assessment & Plan Discharge Plan: Home Plan to discharge in: Greater than 2 days Physician Review Additional Text: Physical exam: Patient alert, cooperative. No complaints noted. No new changes. Heart: Regular rate Lungs: Clear Abdomen: Soft Extremities: Muscle wasting throughout. Exam unchanged Impression: Debility, severe malnutrition secondary to achalasia now with PEG tube Large left hip decubitus stage 3-4 ulcer History of Diabetes mellitus type 2 Bipolar disorder/schizophrenia Anemia of chronic disease Plan Debility, severe malnutrition secondary to achalasia now with PEG tube: Baltazar catheter was discontinued yesterday. Spoke with physical therapy to work with patient at least twice a day to increase and maximize his ability to ambulate. Occupational also to evaluate this. She is trying to get him ready for possible discharge on the 15 of January. Large left hip decubitus stage 4: Continue wound healing. Continue with Infectious Disease recommendations. Continue IV vancomycin. End date for vancomycin will be January 15. Pharmacy to monitor and adjust appropriately. History of Diabetes mellitus type 2: Hemoglobin A1c 5.2. No diabetes. Blood sugar slightly low. Encourage oral intake. Dietary may need to adjust PEG tube feeds. Bipolar disorder/schizophrenia: Continue current medication. Stable. Anemia of chronic disease: Stable. Continue with supplementation. Time Spent Managing Pts Care (In Minutes): 55
[2021-01-09] MEDS: JEVITY 1.2 CAL LIQUID 1,000 ML BOT FT SCH (20:00)
[2021-01-09] MEDS: MIRTAZAPINE 15 MG TAB PO SCH (20:35)
[2021-01-10] MEDS: HYDROCODONE/APAP 10/325 TAB PO PRN ×3 (01:32→15:58)
[2021-01-10] MEDS: VANCOMYCIN 750 MG in NA CHLORIDE 0.9% 250 ML IVPB SCH ×2 (03:48→15:58)
--- NOTE | 2021-01-10 08:03 | P.PN ---
Subjective Date of Service: 01/10/21 Primary Care Provider: none Chief Complaint: Debility, achalasia, sacral decubitus Subjective: Doing well Physical Examination - Vital Signs Temperature: 98.2 F Blood Pressure: 86/49 Pulse: 89 Respirations: 18 Pulse Ox (%): 95 - Physical Exam Other Physical/Emotional Findings: General: Alert, In no apparent distress, Cachectic, Other (severe malnutrition ). HEENT: Atraumatic, Normocephalic, PERRLA. Neck: Supple, 2+ carotid pulse no bruit, JVD not distended, No Thyromegaly. Respiratory: Clear to auscultation bilaterally, Normal air movement. Cardiovascular: No edema, Normal pulses, Regular rate/rhythm. Capillary refill: <2 Seconds. Gastrointestinal: Normal bowel sounds, Soft and benign, PEG tube placed. Musculoskeletal: Other (diffuse muscle wasting ). Integumentary: Other (sacral stage 4 wound-healing. Base of wound shows 100% granulation tissue, No drainage from wound bed. Periwound tissue is clean, dry, intact with no signs of acute infection. ). Urinary: Baltazar catheter - Studies Medications List Reviewed: Yes Assessment & Plan Discharge Plan: Home Plan to discharge in: Greater than 2 days Physician Review Additional Text: Physical exam: Patient alert, cooperative. No complaints noted. No new changes. Heart: Regular rate Lungs: Clear Abdomen: Soft Extremities: Muscle wasting throughout. Exam unchanged Impression: Debility, severe malnutrition secondary to achalasia now with PEG tube Large left hip decubitus stage 3-4 ulcer History of Diabetes mellitus type 2 Bipolar disorder/schizophrenia Anemia of chronic disease Plan Debility, severe malnutrition secondary to achalasia now with PEG tube: Patient has done well without Baltazar catheter. Spoke with patient at length about plan of care. Patient to continue to work with physical therapy. Hopefully physical therapy can work with him at least twice daily to increase and maximize his ability to ambulate prior to possible discharge on January 15. Spoke with social work instructor at length as well. Will need to arrange for home needs at home in preparation for discharge date of January 15 unless he is approved to go to a senior living. Patient will require patient assistance to get his tube feeds. Other considerations may need to be for social work to arrange home health at discharge. Large left hip decubitus stage 4: Continue wound healing. Continue with Infectious Disease recommendations. Continue IV vancomycin. End date for vancomycin will be January 15. Pharmacy to monitor and adjust appropriately. History of Diabetes mellitus type 2: Hemoglobin A1c 5.2. No diabetes. Blood sugar slightly low. Encourage oral intake. Dietary may need to adjust PEG tube feeds. Bipolar disorder/schizophrenia: Continue current medication. Stable. Anemia of chronic disease: Stable. Continue with supplementation. Time Spent Managing Pts Care (In Minutes): 55
[2021-01-10] MEDS: clonazePAM 0.5 MG TAB PO PRN (08:56)
[2021-01-10] MEDS: VENLAFAXINE HCL 37.5 MG TAB PO SCH (08:56)
[2021-01-10] MEDS: GABAPENTIN 100 MG CAP FT SCH ×3 (08:57→20:53)
[2021-01-10] MEDS: BENZTROPINE 1 MG TAB PO SCH ×2 (08:57→20:53)
[2021-01-10] MEDS: RISPERIDONE 1 MG TABLET FT SCH ×2 (08:57→20:52)
[2021-01-10] MEDS: MIDODRINE HCL 5 MG TABLET PO SCH ×3 (08:57→20:52)
[2021-01-10] MEDS: FOLIC ACID 1 MG TABLET FT SCH (08:57)
[2021-01-10] MEDS: NICOTINE 21 MG/PAT TD SCH (08:58)
[2021-01-10] MEDS: MULTIVITAMINS 5 ML ORAL SYR FT SCH (08:58)
[2021-01-10] MEDS: THIAMINE HCL 100 MG TABLET FT SCH (09:00)
[2021-01-10] MEDS: MEDIHONEY 44 ML TOPICAL TUBE TOP SCH (09:00)
[2021-01-10] MEDS: ONDANSETRON 4 MG/2 ML VIAL IV PRN ×2 (15:58→22:34)
[2021-01-10] MEDS: JEVITY 1.2 CAL LIQUID 1,000 ML BOT FT SCH (20:00)
[2021-01-10] MEDS: MIRTAZAPINE 15 MG TAB PO SCH (20:52)
[2021-01-10] MEDS: HALOPERIDOL LACT 5 MG/ML INJ IV PRN (21:03)
[2021-01-11] MEDS: VANCOMYCIN 750 MG in NA CHLORIDE 0.9% 250 ML IVPB SCH ×2 (03:46→16:53)
[2021-01-11] MEDS: HYDROCODONE/APAP 10/325 TAB PO PRN ×2 (05:38→16:53)
[2021-01-11] MEDS: clonazePAM 0.5 MG TAB PO PRN (08:49)
[2021-01-11] MEDS: FOLIC ACID 1 MG TABLET FT SCH (08:49)
[2021-01-11] MEDS: GABAPENTIN 100 MG CAP FT SCH ×3 (08:49→21:53)
[2021-01-11] MEDS: NICOTINE 21 MG/PAT TD SCH (08:50)
[2021-01-11] MEDS: MEDIHONEY 44 ML TOPICAL TUBE TOP SCH (08:50)
[2021-01-11] MEDS: RISPERIDONE 1 MG TABLET FT SCH ×2 (08:51→21:53)
[2021-01-11] MEDS: VENLAFAXINE HCL 37.5 MG TAB PO SCH (08:51)
[2021-01-11] MEDS: MIDODRINE HCL 5 MG TABLET PO SCH ×3 (08:51→21:57)
[2021-01-11] MEDS: BENZTROPINE 1 MG TAB PO SCH ×2 (08:52→21:00)
[2021-01-11] MEDS: THIAMINE HCL 100 MG TABLET FT SCH (08:52)
[2021-01-11] MEDS: MULTIVITAMINS 5 ML ORAL SYR FT SCH (08:52)
--- NOTE | 2021-01-11 09:20 | P.PN ---
Subjective Date of Service: 01/11/21 Primary Care Provider: none Chief Complaint: Debility, achalasia, sacral decubitus Subjective: No new changes, Doing well Physical Examination - Vital Signs Temperature: 98.3 F Blood Pressure: 101/78 Pulse: 97 Respirations: 16 Pulse Ox (%): 100 - Physical Exam Other Physical/Emotional Findings: General: Alert, In no apparent distress, Cachectic, Other (severe malnutrition ). HEENT: Atraumatic, Normocephalic, PERRLA. Neck: Supple, 2+ carotid pulse no bruit, JVD not distended, No Thyromegaly. Respiratory: Clear to auscultation bilaterally, Normal air movement. Cardiovascular: No edema, Normal pulses, Regular rate/rhythm. Capillary refill: <2 Seconds. Gastrointestinal: Normal bowel sounds, Soft and benign, PEG tube placed. Musculoskeletal: Other (diffuse muscle wasting ). Integumentary: Other (sacral stage 4 wound-healing. Base of wound shows 100% granulation tissue, No drainage from wound bed. Periwound tissue is clean, dry, intact with no signs of acute infection. ). Urinary: Baltazar catheter - Studies Medications List Reviewed: Yes Assessment & Plan Discharge Plan: Home Plan to discharge in: Greater than 2 days Physician Review Additional Text: Physical exam: Patient alert, cooperative. No complaints noted. No new changes. Heart: Regular rate Lungs: Clear Abdomen: Soft Extremities: Muscle wasting throughout. Exam unchanged Impression: Debility, severe malnutrition secondary to achalasia now with PEG tube Large left hip decubitus stage 3-4 ulcer History of Diabetes mellitus type 2 Bipolar disorder/schizophrenia Anemia of chronic disease Plan Debility, severe malnutrition secondary to achalasia now with PEG tube: Patient has done well. Continue with current plan of care. If no approval to go to skilled nursing by the then will plan to discharge home. Social work has been working to arrange for home health/physical therapy at discharge, patient assistance for current feeds, [facility], and other home care needs. Will clarify with social research assistant. Will try to reach out to the family to address this in detail. This was discussed with the family early this week who agreed with plan of care. Will continue to reach out to them today to confirm plan of care. Anticipate discharge January 15 as he will complete IV vancomycin at that time. I will turn the service over to the hospital team tomorrow. I will go plan of care with him. Large left hip decubitus stage 4: Continue wound healing. Continue with Infectious Disease recommendations. Continue IV vancomycin. End date for vancomycin will be January 15. Pharmacy to monitor and adjust appropriately. History of Diabetes mellitus type 2: Hemoglobin A1c 5.2. No diabetes. Blood sugar slightly low. Encourage oral intake. Dietary may need to adjust PEG tube feeds. Bipolar disorder/schizophrenia: Continue current medication. Stable. Anemia of chronic disease: Stable. Continue with supplementation. Time Spent Managing Pts Care (In Minutes): 55
[2021-01-11] MEDS: ONDANSETRON 4 MG/2 ML VIAL IV PRN (17:01)
[2021-01-11] MEDS: JEVITY 1.2 CAL LIQUID 1,000 ML BOT FT SCH (20:00)
[2021-01-11] MEDS: MIRTAZAPINE 15 MG TAB PO SCH (21:54)
[2021-01-12] MEDS: VANCOMYCIN 750 MG in NA CHLORIDE 0.9% 250 ML IVPB SCH ×2 (04:44→15:14)
[2021-01-12] MEDS: MEDIHONEY 44 ML TOPICAL TUBE TOP SCH (09:00)
[2021-01-12] MEDS: BENZTROPINE 1 MG TAB PO SCH ×2 (09:00→20:16)
[2021-01-12] MEDS: HYDROCODONE/APAP 10/325 TAB PO PRN ×2 (09:13→15:06)
[2021-01-12] MEDS: RISPERIDONE 1 MG TABLET FT SCH ×2 (09:14→20:16)
[2021-01-12] MEDS: FOLIC ACID 1 MG TABLET FT SCH (09:14)
[2021-01-12] MEDS: MIDODRINE HCL 5 MG TABLET PO SCH ×3 (09:14→20:16)
[2021-01-12] MEDS: THIAMINE HCL 100 MG TABLET FT SCH (09:14)
[2021-01-12] MEDS: VENLAFAXINE HCL 37.5 MG TAB PO SCH (09:14)
[2021-01-12] MEDS: GABAPENTIN 100 MG CAP FT SCH ×3 (09:14→20:16)
[2021-01-12] MEDS: NICOTINE 21 MG/PAT TD SCH (09:15)
[2021-01-12] MEDS: MULTIVITAMINS 5 ML ORAL SYR FT SCH (09:15)
--- NOTE | 2021-01-12 12:06 | P.PN ---
Subjective Date of Service: 01/12/21 Primary Care Provider: none Chief Complaint: Debility, achalasia, sacral decubitus Patient seen and examined at bedside. Denies pain. Doing well denies any acute complaints. Denies any nausea. Will complete course of vancomycinon on - plan for Dc around that date as well. Review of Systems 10-point ROS is otherwise unremarkable Physical Examination - Vital Signs Temperature: 98.0 F Blood Pressure: 94/51 Pulse: 82 Respirations: 14 Pulse Ox (%): 100 - Studies Laboratory Last Values WBC 5.30 K/uL (4.3-10.9) 11/27/20 21:00 RBC 2.85 M/uL (4.33-5.43) L 11/27/20 21:00 Hgb 8.8 g/dL (13.6-17.9) L 11/27/20 21:00 Hct 25.7 % (39.6-49.0) L 11/27/20 21:00 MCV 90.3 fL (80-100) D 11/27/20 21:00 MCH 30.8 pg (27.0-35.0) 11/27/20 21:00 MCHC 34.1 g/dL (32.0-36.0) 11/27/20 21:00 RDW 19.8 % (12.1-15.2) H 11/27/20 21:00 Plt Count 377 K/uL (152-406) 11/27/20 21:00 MPV 8.2 fL (7.6-11.3) 11/27/20 21:00 Neutrophils % 59.2 % (41.7-73.7) 11/27/20 21:00 Lymphocytes % 29.0 % (15.3-44.8) 11/27/20 21:00 Monocytes % 11.4 % (3.3-12.3) 11/27/20 21:00 Eosinophils % 0.2 % (0-4.4) 11/27/20 21:00 Basophils % 0.2 % (0-1.3) 11/27/20 21:00 Absolute Neutrophils 3.1 K/uL (1.8-8.0) 11/27/20 21:00 Absolute Lymphocytes 1.5 K/uL (0.7-4.9) 11/27/20 21:00 Absolute Monocytes 0.6 K/uL (0.1-1.3) 11/27/20 21:00 Absolute Eosinophils 0.0 K/uL (0-0.5) 11/27/20 21:00 Absolute Basophils 0.0 K/uL (0-0.5) 11/27/20 21:00 PT 11.8 SECONDS (9.5-12.5) 11/27/20 21:00 INR 1.03 11/27/20 21:00 Sodium 141 mmol/L (136-145) 11/27/20 21:00 Potassium 4.5 mmol/L (3.5-5.1) 11/27/20 21:00 Chloride 106 mmol/L (98-107) 11/27/20 21:00 Carbon Dioxide 33 mmol/L (21-32) H 11/27/20 21:00 BUN 8 mg/dL (7-18) 11/27/20 21:00 Creatinine < 0.15 mg/dL (0.55-1.3) L 11/27/20 21:00 Estimated GFR > 90 mL/min (=/>90) 11/27/20 21:00 Glucose 86 mg/dL (74-106) 11/27/20 21:00 Lactic Acid 1.7 mmol/L (0.4-2.0) 11/27/20 21:00 Calcium 7.5 mg/dL (8.5-10.1) L 11/27/20 21:00 Magnesium 2.1 mg/dL (1.8-2.4) 11/27/20 21:00 Total Bilirubin 0.2 mg/dL (0.2-1.0) 11/27/20 21:00 Direct Bilirubin < 0.1 mg/dL (0-0.2) 11/27/20 21:00 AST 19 U/L (15-37) 11/27/20 21:00 ALT 21 U/L (12-78) 11/27/20 21:00 Alkaline Phosphatase 120 U/L (45-117) H 11/27/20 21:00 Rapid Troponin I < 0.02 ng/mL (0.0-0.045) 11/27/20 21:00 NT-Pro-B Natriuret Pep 196 pg/mL (<125) H 11/27/20 21:00 Serum Total Protein 5.6 g/dL (6.4-8.2) L 11/27/20 21:00 Albumin 1.4 g/dL (3.4-5.0) L 11/27/20 21:00 Globulin 4.2 g/dL (2.3-3.5) H 11/27/20 21:00 Albumin/Globulin Ratio 0.3 (1.1-1.8) L 11/27/20 21:00 SARS-CoV-2 RNA (RT-PCR) Negative (NEGATIVE) 11/27/20 22:24 ABO/Rh AB POSITIVE 11/27/20 21:00 Solid Phase Ab Screen Negative 11/27/20 21:00 Medications List Reviewed: Yes Assessment And Plan - Plan Physical Exam: General: Alert, In no apparent distress, Cachectic, Other (severe malnutrition ) HEENT: Atraumatic, Normocephalic, PERRLA Neck: Supple, 2+ carotid pulse no bruit, JVD not distended, No Thyromegaly Respiratory: Clear to auscultation bilaterally, Normal air movement Cardiovascular: No edema, Normal pulses, Regular rate/rhythm Capillary refill: <2 Seconds Gastrointestinal: Normal bowel sounds, Soft and benign, PEG tube placed Musculoskeletal: Other (diffuse muscle wasting ) Integumentary: Other (sacral stage 4 wound-healing. Base of wound shows 100% g ranulation tissue, No drainage from wound bed. Periwound tissue is clean, dry, intact with no signs of acute infection. ) Urinary: Baltazar catheter Assessment 1.Sacral coccyx stage IV wound. 2.Severe malnourished. 3.Diabetes mellitus 4. anemia of chronic disease associated with malnourished. . Plan: 1. medihoney, silver alginate, cover with foam qMWF. Wound is healing well, 100% granulation tissue. Periwound tissue is clean dry and intact with no signs of acute infection. CT Pelvis could not rule out osteomyelitis-continue vanco for 6 weeks from start date (12/11) end (01/15). Will monitor renal function closely. Dose adjusted via pharmacy. Ideally would like to place wound VAC however when done in past patient rips the dressing off. 2. Continue nutrition as the patient needed for healing of his wounds. PEG tube placed. 3. medical management per primary team. -awaiting transfer to senior care facility. -We will continue to monitor CBC-BMP, monitor for signs of infection. We will follow closely Plan of care discussed with Dr. Sosa. Thank you Dr. Hernández for consult.
[2021-01-12] MEDS: JEVITY 1.2 CAL LIQUID 1,000 ML BOT FT SCH (20:00)
[2021-01-12] MEDS: HALOPERIDOL LACT 5 MG/ML INJ IV PRN (20:15)
[2021-01-12] MEDS: MIRTAZAPINE 15 MG TAB PO SCH (20:16)
[2021-01-12 21:06] VITALS: O2SAT 100
[2021-01-13] MEDS: HYDROCODONE/APAP 10/325 TAB PO PRN (00:59)
[2021-01-13] MEDS: VANCOMYCIN 750 MG in NA CHLORIDE 0.9% 250 ML IVPB SCH ×2 (03:50→16:43)
--- NOTE | 2021-01-13 08:45 | P.PN ---
Date of Service: 01/12/21 Subjective Patient without new complaints. Spoke to him about possibly going home on and he is agreeable. Sister for additional family should be able to pick him up. Case management will reach out to family. I will also try to reach out. Review of Systems 10-point ROS is otherwise unremarkable Physical Examination - Vital Signs Reviewed - Physical Exam General: Alert, In no apparent distress, Oriented x3 Assessment & Plan - Problems (Diagnosis) (1) Malnutrition Current Visit: Yes Status: Acute (2) S/P percutaneous endoscopic gastrostomy (PEG) tube placement Current Visit: Yes Status: Acute (3) Sacral decubitus ulcer, stage IV Current Visit: Yes Status: Acute (4) Achalasia Current Visit: Yes Status: Acute (5) Bipolar 1 disorder Current Visit: Yes Status: Acute (6) Schizophrenia Current Visit: Yes Status: Acute - Plan Plan of care as mentioned below. At this time. Possible discharge on 1. Possible discharge at this time. Unable to place patient 2. Continue tube feedings 3. Protein supplementation as necessary 4. Wound care 5. Pain control; 6. Antipsychosis 7. DVT prophylaxis
--- NOTE | 2021-01-13 08:57 | P.PN ---
Date of Service: 01/13/21 Subjective Patient fell out of bed again. No injuries. No other complaints voiced today. Review of Systems 10-point ROS is otherwise unremarkable Physical Examination - Vital Signs Reviewed - Physical Exam General: Alert, In no apparent distress, Oriented x3 Assessment & Plan - Problems (Diagnosis) (1) Malnutrition Current Visit: Yes Status: Acute (2) S/P percutaneous endoscopic gastrostomy (PEG) tube placement Current Visit: Yes Status: Acute (3) Sacral decubitus ulcer, stage IV Current Visit: Yes Status: Acute (4) Achalasia Current Visit: Yes Status: Acute (5) Bipolar 1 disorder Current Visit: Yes Status: Acute (6) Schizophrenia Current Visit: Yes Status: Acute - Plan Plan of care as mentioned below. At this time. Possible discharge on 1. Arranging for discharge later this week. No injuries obtained during fall. 2. Continue tube feedings 3. Protein supplementationn 4. Wound care 5. Pain control; 6. Antipsychosis 7. DVT prophylaxis
[2021-01-13] MEDS: BENZTROPINE 1 MG TAB PO SCH ×2 (09:00→20:20)
[2021-01-13] MEDS: GABAPENTIN 100 MG CAP FT SCH ×3 (09:00→20:16)
[2021-01-13] MEDS: THIAMINE HCL 100 MG TABLET FT SCH (09:00)
[2021-01-13] MEDS: MEDIHONEY 44 ML TOPICAL TUBE TOP SCH (09:00)
[2021-01-13] MEDS: MIDODRINE HCL 5 MG TABLET PO SCH ×3 (09:00→20:16)
[2021-01-13] MEDS: RISPERIDONE 1 MG TABLET FT SCH ×2 (09:00→20:16)
[2021-01-13] MEDS: NICOTINE 21 MG/PAT TD SCH (09:00)
[2021-01-13] MEDS: FOLIC ACID 1 MG TABLET FT SCH (09:00)
[2021-01-13] MEDS: MULTIVITAMINS 5 ML ORAL SYR FT SCH (09:00)
[2021-01-13] MEDS: VENLAFAXINE HCL 37.5 MG TAB PO SCH (09:00)
--- NOTE | 2021-01-13 10:44 | P.PN ---
Subjective Date of Service: 01/13/21 Primary Care Provider: none Chief Complaint: Debility, achalasia, sacral decubitus Patient seen and examined at bedside. Plan for discharge this following completed course of vancomycin. Repeat CBC and BMP has been ordered. Wound is stable with 100% granulation tissue. Review of Systems 10-point ROS is otherwise unremarkable Physical Examination - Vital Signs Temperature: 98.0 F Blood Pressure: 93/54 Pulse: 82 Respirations: 14 Pulse Ox (%): 99 - Studies Laboratory Last Values WBC 5.30 K/uL (4.3-10.9) 11/27/20 21:00 RBC 2.85 M/uL (4.33-5.43) L 11/27/20 21:00 Hgb 8.8 g/dL (13.6-17.9) L 11/27/20 21:00 Hct 25.7 % (39.6-49.0) L 11/27/20 21:00 MCV 90.3 fL (80-100) D 11/27/20 21:00 MCH 30.8 pg (27.0-35.0) 11/27/20 21:00 MCHC 34.1 g/dL (32.0-36.0) 11/27/20 21:00 RDW 19.8 % (12.1-15.2) H 11/27/20 21:00 Plt Count 377 K/uL (152-406) 11/27/20 21:00 MPV 8.2 fL (7.6-11.3) 11/27/20 21:00 Neutrophils % 59.2 % (41.7-73.7) 11/27/20 21:00 Lymphocytes % 29.0 % (15.3-44.8) 11/27/20 21:00 Monocytes % 11.4 % (3.3-12.3) 11/27/20 21:00 Eosinophils % 0.2 % (0-4.4) 11/27/20 21:00 Basophils % 0.2 % (0-1.3) 11/27/20 21:00 Absolute Neutrophils 3.1 K/uL (1.8-8.0) 11/27/20 21:00 Absolute Lymphocytes 1.5 K/uL (0.7-4.9) 11/27/20 21:00 Absolute Monocytes 0.6 K/uL (0.1-1.3) 11/27/20 21:00 Absolute Eosinophils 0.0 K/uL (0-0.5) 11/27/20 21:00 Absolute Basophils 0.0 K/uL (0-0.5) 11/27/20 21:00 PT 11.8 SECONDS (9.5-12.5) 11/27/20 21:00 INR 1.03 11/27/20 21:00 Sodium 141 mmol/L (136-145) 11/27/20 21:00 Potassium 4.5 mmol/L (3.5-5.1) 11/27/20 21:00 Chloride 106 mmol/L (98-107) 11/27/20 21:00 Carbon Dioxide 33 mmol/L (21-32) H 11/27/20 21:00 BUN 8 mg/dL (7-18) 11/27/20 21:00 Creatinine < 0.15 mg/dL (0.55-1.3) L 11/27/20 21:00 Estimated GFR > 90 mL/min (=/>90) 11/27/20 21:00 Glucose 86 mg/dL (74-106) 11/27/20 21:00 Lactic Acid 1.7 mmol/L (0.4-2.0) 11/27/20 21:00 Calcium 7.5 mg/dL (8.5-10.1) L 11/27/20 21:00 Magnesium 2.1 mg/dL (1.8-2.4) 11/27/20 21:00 Total Bilirubin 0.2 mg/dL (0.2-1.0) 11/27/20 21:00 Direct Bilirubin < 0.1 mg/dL (0-0.2) 11/27/20 21:00 AST 19 U/L (15-37) 11/27/20 21:00 ALT 21 U/L (12-78) 11/27/20 21:00 Alkaline Phosphatase 120 U/L (45-117) H 11/27/20 21:00 Rapid Troponin I < 0.02 ng/mL (0.0-0.045) 11/27/20 21:00 NT-Pro-B Natriuret Pep 196 pg/mL (<125) H 02/04/21 21:00 Serum Total Protein 5.6 g/dL (6.4-8.2) L 11/27/20 21:00 Albumin 1.4 g/dL (3.4-5.0) L 11/27/20 21:00 Globulin 4.2 g/dL (2.3-3.5) H 11/27/20 21:00 Albumin/Globulin Ratio 0.3 (1.1-1.8) L 11/27/20 21:00 SARS-CoV-2 RNA (RT-PCR) Negative (NEGATIVE) 11/27/20 22:24 ABO/Rh AB POSITIVE 11/27/20 21:00 Solid Phase Ab Screen Negative 11/27/20 21:00 Medications List Reviewed: Yes Assessment And Plan - Plan Physical Exam: General: Alert, In no apparent distress, Cachectic, Other (severe malnutrition ) HEENT: Atraumatic, Normocephalic, PERRLA Neck: Supple, 2+ carotid pulse no bruit, JVD not distended, No Thyromegaly Respiratory: Clear to auscultation bilaterally, Normal air movement Cardiovascular: No edema, Normal pulses, Regular rate/rhythm Capillary refill: <2 Seconds Gastrointestinal: Normal bowel sounds, Soft and benign, PEG tube placed Musculoskeletal: Other (diffuse muscle wasting ) Integumentary: Other (sacral stage 4 wound-healing. Base of wound shows 100% granulation tissue, No drainage from wound bed. Periwound tissue is clean, dry, intact with no signs of acute infection. ) Urinary: Baltazar catheter Assessment 1.Sacral coccyx stage IV wound. 2.Severe malnourished. 3.Diabetes mellitus 4. anemia of chronic disease associated with malnourished. . Plan: 1. medihoney, silver alginate, cover with foam qMWF. Wound is healing well, 100% granulation tissue. Periwound tissue is clean dry and intact with no signs of acute infection. CT Pelvis could not rule out osteomyelitis-continue vanco for 6 weeks from start date (12/11) end (01/15). Will monitor renal function closely. Dose adjusted via pharmacy. Ideally would like to place wound VAC however when done in past patient rips the dressing off. 2. Continue nutrition as the patient needed for healing of his wounds. PEG tube placed. 3. medical management per primary team. -awaiting transfer to [facility] facility. -We will continue to monitor CBC-BMP, monitor for signs of infection. We will follow closely Plan of care discussed with Dr. Sosa. Thank you Dr. Hernández for consult.
[2021-01-13 12:32] LABS: Absolute Lymphocytes (CBC) 1.6 K/uL (0.7-4.9); Basophils % 0.2 % (0-1.3); Hematocrit 28.6 % (39.6-49.0); MPV 8.6 fL (7.6-11.3); RBC Red Blood Cell Count 2.88 M/uL (4.33-5.43)
[2021-01-13 12:44] LABS: BUN Blood Urea Nitrogen 9 mg/dL (7-18); Bicarbonate 27 mmol/L (21-32); Glucose Level 87 mg/dL (74-106); Potassium 4.2 mmol/L (3.5-5.1); Sodium Level 140 mmol/L (136-145)
[2021-01-13] MEDS: JEVITY 1.2 CAL LIQUID 1,000 ML BOT FT SCH ×2 (13:39→20:20)
[2021-01-13] MEDS ORDERED: TRAMADOL HCL 50 MG TAB PO ONE (18:30)
[2021-01-13] MEDS: MIRTAZAPINE 15 MG TAB PO SCH (20:16)
[2021-01-14] MEDS: VANCOMYCIN 750 MG in NA CHLORIDE 0.9% 250 ML IVPB SCH ×2 (04:24→16:45)
[2021-01-14] MEDS: MEDIHONEY 44 ML TOPICAL TUBE TOP SCH (09:00)
[2021-01-14] MEDS: JEVITY 1.2 CAL LIQUID 1,000 ML BOT FT SCH ×3 (09:00→20:05)
[2021-01-14] MEDS: BENZTROPINE 1 MG TAB PO SCH ×2 (09:00→20:05)
[2021-01-14] MEDS: GABAPENTIN 100 MG CAP FT SCH ×3 (10:04→20:04)
[2021-01-14] MEDS: VENLAFAXINE HCL 37.5 MG TAB PO SCH (10:06)
[2021-01-14] MEDS: RISPERIDONE 1 MG TABLET FT SCH ×2 (10:08→20:04)
[2021-01-14] MEDS: MULTIVITAMINS 5 ML ORAL SYR FT SCH (10:08)
[2021-01-14] MEDS: FOLIC ACID 1 MG TABLET FT SCH (10:09)
[2021-01-14] MEDS: MIDODRINE HCL 5 MG TABLET PO SCH ×3 (10:09→20:04)
[2021-01-14] MEDS: THIAMINE HCL 100 MG TABLET FT SCH (10:09)
[2021-01-14] MEDS: NICOTINE 21 MG/PAT TD SCH (10:10)
[2021-01-14] MEDS: HYDROCODONE/APAP 10/325 TAB PO PRN ×2 (13:17→20:04)
--- NOTE | 2021-01-14 14:14 | P.PN ---
Subjective Date of Service: 01/14/21 Primary Care Provider: none Chief Complaint: Debility, achalasia, sacral decubitus Patient seen and examined at bedside. Hbg downtrending-continue to monitor closely. Recommend transfusion if it falls below 7.0. Review of Systems 10-point ROS is otherwise unremarkable Physical Examination - Vital Signs Temperature: 97.5 F Blood Pressure: 113/76 Pulse: 87 Respirations: 16 Pulse Ox (%): 100 - Studies Laboratory Last Values WBC 5.30 K/uL (4.3-10.9) 11/27/20 21:00 RBC 2.85 M/uL (4.33-5.43) L 11/27/20 21:00 Hgb 8.8 g/dL (13.6-17.9) L 11/27/20 21:00 Hct 25.7 % (39.6-49.0) L 11/27/20 21:00 MCV 90.3 fL (80-100) D 11/27/20 21:00 MCH 30.8 pg (27.0-35.0) 11/27/20 21:00 MCHC 34.1 g/dL (32.0-36.0) 11/27/20 21:00 RDW 19.8 % (12.1-15.2) H 11/27/20 21:00 Plt Count 377 K/uL (152-406) 11/27/20 21:00 MPV 8.2 fL (7.6-11.3) 11/27/20 21:00 Neutrophils % 59.2 % (41.7-73.7) 11/27/20 21:00 Lymphocytes % 29.0 % (15.3-44.8) 11/27/20 21:00 Monocytes % 11.4 % (3.3-12.3) 11/27/20 21:00 Eosinophils % 0.2 % (0-4.4) 11/27/20 21:00 Basophils % 0.2 % (0-1.3) 11/27/20 21:00 Absolute Neutrophils 3.1 K/uL (1.8-8.0) 11/27/20 21:00 Absolute Lymphocytes 1.5 K/uL (0.7-4.9) 11/27/20 21:00 Absolute Monocytes 0.6 K/uL (0.1-1.3) 11/27/20 21:00 Absolute Eosinophils 0.0 K/uL (0-0.5) 11/27/20 21:00 Absolute Basophils 0.0 K/uL (0-0.5) 11/27/20 21:00 PT 11.8 SECONDS (9.5-12.5) 11/27/20 21:00 INR 1.03 11/27/20 21:00 Sodium 141 mmol/L (136-145) 11/27/20 21:00 Potassium 4.5 mmol/L (3.5-5.1) 11/27/20 21:00 Chloride 106 mmol/L (98-107) 11/27/20 21:00 Carbon Dioxide 33 mmol/L (21-32) H 11/27/20 21:00 BUN 8 mg/dL (7-18) 11/27/20 21:00 Creatinine < 0.15 mg/dL (0.55-1.3) L 11/27/20 21:00 Estimated GFR > 90 mL/min (=/>90) 11/27/20 21:00 Glucose 86 mg/dL (74-106) 11/27/20 21:00 Lactic Acid 1.7 mmol/L (0.4-2.0) 11/27/20 21:00 Calcium 7.5 mg/dL (8.5-10.1) L 11/27/20 21:00 Magnesium 2.1 mg/dL (1.8-2.4) 11/27/20 21:00 Total Bilirubin 0.2 mg/dL (0.2-1.0) 11/27/20 21:00 Direct Bilirubin < 0.1 mg/dL (0-0.2) 11/27/20 21:00 AST 19 U/L (15-37) 11/27/20 21:00 ALT 21 U/L (12-78) 11/27/20 21:00 Alkaline Phosphatase 120 U/L (45-117) H 11/27/20 21:00 Rapid Troponin I < 0.02 ng/mL (0.0-0.045) 11/27/20 21:00 NT-Pro-B Natriuret Pep 196 pg/mL (<125) H 11/27/20 21:00 Serum Total Protein 5.6 g/dL (6.4-8.2) L 11/27/20 21:00 Albumin 1.4 g/dL (3.4-5.0) L 11/27/20 21:00 Globulin 4.2 g/dL (2.3-3.5) H 11/27/20 21:00 Albumin/Globulin Ratio 0.3 (1.1-1.8) L 11/27/20 21:00 SARS-CoV-2 RNA (RT-PCR) Negative (NEGATIVE) 11/27/20 22:24 ABO/Rh AB POSITIVE 11/27/20 21:00 Solid Phase Ab Screen Negative 11/27/20 21:00 Medications List Reviewed: Yes Assessment And Plan - Plan Physical Exam: General: Alert, In no apparent distress, Cachectic, Other (severe malnutrition ) HEENT: Atraumatic, Normocephalic, PERRLA Neck: Supple, 2+ carotid pulse no bruit, JVD not distended, No Thyromegaly Respiratory: Clear to auscultation bilaterally, Normal air movement Cardiovascular: No edema, Normal pulses, Regular rate/rhythm Capillary refill: <2 Seconds Gastrointestinal: Normal bowel sounds, Soft and benign, PEG tube placed Musculoskeletal: Other (diffuse muscle wasting ) Integumentary: Other (sacral stage 4 wound-healing. Base of wound shows 100% granulation tissue, No drainage from wound bed. Periwound tissue is clean, dry, intact with no signs of acute infection. ) Urinary: Baltazar catheter Assessment 1.Sacral coccyx stage IV wound. 2.Severe malnourished. 3.Diabetes mellitus 4. anemia of chronic disease associated with malnourished. . Plan: 1. medihoney, silver alginate, cover with foam qMWF. Wound is healing well, 100% granulation tissue. Periwound tissue is clean dry and intact with no signs of acute infection. CT Pelvis could not rule out osteomyelitis-continue vanco for 6 weeks from start date (12/11) end (01/15). Will monitor renal function clos linda. Dose adjusted via pharmacy. Ideally would like to place wound VAC however when done in past patient rips the dressing off. 2. Continue nutrition as the patient needed for healing of his wounds. PEG tube placed. 3. medical management per primary team. -[facility] -We will continue to monitor CBC-BMP, monitor for signs of infection. We will follow closely Plan of care discussed with Dr. Sosa. Thank you Dr. Hernández for consult.
[2021-01-14] MEDS: MIRTAZAPINE 15 MG TAB PO SCH (20:04)
[2021-01-15] MEDS: HYDROCODONE/APAP 10/325 TAB PO PRN (03:32)
[2021-01-15] MEDS: VANCOMYCIN 750 MG in NA CHLORIDE 0.9% 250 ML IVPB SCH (03:33)
[2021-01-15] MEDS: BENZTROPINE 1 MG TAB PO SCH (09:00)
[2021-01-15] MEDS: MEDIHONEY 44 ML TOPICAL TUBE TOP SCH (09:00)
[2021-01-15] MEDS: JEVITY 1.2 CAL LIQUID 1,000 ML BOT FT SCH (09:00)
[2021-01-15] MEDS: THIAMINE HCL 100 MG TABLET FT SCH (09:52)
[2021-01-15] MEDS: MIDODRINE HCL 5 MG TABLET PO SCH (09:52)
[2021-01-15] MEDS: VENLAFAXINE HCL 37.5 MG TAB PO SCH (09:52)
[2021-01-15] MEDS: FOLIC ACID 1 MG TABLET FT SCH (09:52)
[2021-01-15] MEDS: GABAPENTIN 100 MG CAP FT SCH (09:52)
[2021-01-15] MEDS: MULTIVITAMINS 5 ML ORAL SYR FT SCH (09:52)
[2021-01-15] MEDS: RISPERIDONE 1 MG TABLET FT SCH (09:52)
[2021-01-15] MEDS: NICOTINE 21 MG/PAT TD SCH (09:53)
--- NOTE | 2021-01-15 10:50 | P.PN ---
Subjective Date of Service: 01/15/21 Primary Care Provider: none Chief Complaint: Debility, achalasia, sacral decubitus Patient seen and examined at bedside. Patient has completed 6 week course of vancomycin. Doing well no acute complaints. Review of Systems 10-point ROS is otherwise unremarkable Physical Examination - Vital Signs Temperature: 97.5 F Blood Pressure: 98/61 Pulse: 82 Respirations: 14 Pulse Ox (%): 100 - Studies Laboratory Last Values WBC 5.30 K/uL (4.3-10.9) 11/27/20 21:00 RBC 2.85 M/uL (4.33-5.43) L 11/27/20 21:00 Hgb 8.8 g/dL (13.6-17.9) L 11/27/20 21:00 Hct 25.7 % (39.6-49.0) L 11/27/20 21:00 MCV 90.3 fL (80-100) D 11/27/20 21:00 MCH 30.8 pg (27.0-35.0) 11/27/20 21:00 MCHC 34.1 g/dL (32.0-36.0) 11/27/20 21:00 RDW 19.8 % (12.1-15.2) H 11/27/20 21:00 Plt Count 377 K/uL (152-406) 11/27/20 21:00 MPV 8.2 fL (7.6-11.3) 11/27/20 21:00 Neutrophils % 59.2 % (41.7-73.7) 11/27/20 21:00 Lymphocytes % 29.0 % (15.3-44.8) 11/27/20 21:00 Monocytes % 11.4 % (3.3-12.3) 11/27/20 21:00 Eosinophils % 0.2 % (0-4.4) 11/27/20 21:00 Basophils % 0.2 % (0-1.3) 11/27/20 21:00 Absolute Neutrophils 3.1 K/uL (1.8-8.0) 11/27/20 21:00 Absolute Lymphocytes 1.5 K/uL (0.7-4.9) 11/27/20 21:00 Absolute Monocytes 0.6 K/uL (0.1-1.3) 11/27/20 21:00 Absolute Eosinophils 0.0 K/uL (0-0.5) 11/27/20 21:00 Absolute Basophils 0.0 K/uL (0-0.5) 11/27/20 21:00 PT 11.8 SECONDS (9.5-12.5) 11/27/20 21:00 INR 1.03 11/27/20 21:00 Sodium 141 mmol/L (136-145) 11/27/20 21:00 Potassium 4.5 mmol/L (3.5-5.1) 11/27/20 21:00 Chloride 106 mmol/L (98-107) 11/27/20 21:00 Carbon Dioxide 33 mmol/L (21-32) H 11/27/20 21:00 BUN 8 mg/dL (7-18) 11/27/20 21:00 Creatinine < 0.15 mg/dL (0.55-1.3) L 11/27/20 21:00 Estimated GFR > 90 mL/min (=/>90) 11/27/20 21:00 Glucose 86 mg/dL (74-106) 11/27/20 21:00 Lactic Acid 1.7 mmol/L (0.4-2.0) 11/27/20 21:00 Calcium 7.5 mg/dL (8.5-10.1) L 11/27/20 21:00 Magnesium 2.1 mg/dL (1.8-2.4) 11/27/20 21:00 Total Bilirubin 0.2 mg/dL (0.2-1.0) 11/27/20 21:00 Direct Bilirubin < 0.1 mg/dL (0-0.2) 11/27/20 21:00 AST 19 U/L (15-37) 11/27/20 21:00 ALT 21 U/L (12-78) 11/27/20 21:00 Alkaline Phosphatase 120 U/L (45-117) H 11/27/20 21:00 Rapid Troponin I < 0.02 ng/mL (0.0-0.045) 11/27/20 21:00 NT-Pro-B Natriuret Pep 196 pg/mL (<125) H 11/27/20 21:00 Serum Total Protein 5.6 g/dL (6.4-8.2) L 11/27/20 21:00 Albumin 1.4 g/dL (3.4-5.0) L 11/27/20 21:00 Globulin 4.2 g/dL (2.3-3.5) H 11/27/20 21:00 Albumin/Globulin Ratio 0.3 (1.1-1.8) L 11/27/20 21:00 SARS-CoV-2 RNA (RT-PCR) Negative (NEGATIVE) 11/27/20 22:24 ABO/Rh AB POSITIVE 11/27/20 21:00 Solid Phase Ab Screen Negative 11/27/20 21:00 Medications List Reviewed: Yes Assessment And Plan - Plan Physical Exam: General: Alert, In no apparent distress, Cachectic, Other (severe malnutrition ) HEENT: Atraumatic, Normocephalic, PERRLA Neck: Supple, 2+ carotid pulse no bruit, JVD not distended, No Thyromegaly Respiratory: Clear to auscultation bilaterally, Normal air movement Cardiovascular: No edema, Normal pulses, Regular rate/rhythm Capillary refill: <2 Seconds Gastrointestinal: Normal bowel sounds, Soft and benign, PEG tube placed Musculoskeletal: Other (diffuse muscle wasting ) Integumentary: Other (sacral stage 4 wound-healing. Base of wound shows 100% granulation tissue, No drainage from wound bed. Periwound tissue is clean, dry, intact with no signs of acute infection. Undermining presents around wound edges. ) Urinary: Baltazar catheter Assessment 1.Sacral coccyx stage IV wound. 2.Severe malnourished. 3.Diabetes mellitus 4. anemia of chronic disease associated with malnourished. . Plan: 1. medihoney, silver alginate, cover with foam qMWF. Wound is healing well, 100% granulation tissue. Periwound tissue is clean dry and intact with no signs of acute infection. CT Pelvis could not rule out osteomyelitis-continue vanco for 6 weeks from start date (12/11) end (01/15). Will monitor renal function closely. Dose adjusted via pharmacy. Ideally would like to place wound VAC however when done in past patient rips the dressing off. 2. Continue nutrition as the patient needed for healing of his wounds. PEG tube placed. 3. medical management per primary team. -awaiting transfer to [facility] facility. -We will continue to monitor CBC-BMP, monitor for signs of infection. We will follow closely Plan of care discussed with Dr. Sosa. Thank you Dr. Hernández for consult.
[2021-01-15 11:21] LABS: Absolute Lymphocytes (CBC) 1.5 K/uL (0.7-4.9); Basophils % 0.3 % (0-1.3); Hematocrit 31.1 % (39.6-49.0); Lymphocytes % 24.1 % (15.3-44.8); MPV 8.9 fL (7.6-11.3); RBC Red Blood Cell Count 3.13 M/uL (4.33-5.43)
[2021-01-15 13:46] VITALS: BP 85/60; TEMP 97.6
--- NOTE | 2021-01-20 02:58 | P.PN ---
Date of Service: 01/14/21 Subjective Patient without any changes. Patient clinically declines. Patient has wound on his sacrum. Patient prognosis is poor. Review of Systems 10-point ROS is otherwise unremarkable Physical Examination - Vital Signs Reviewed - Physical Exam General: Alert, In no apparent distress, Oriented x3 Assessment & Plan - Problems (Diagnosis) (1) Malnutrition Current Visit: Yes Status: Acute (2) S/P percutaneous endoscopic gastrostomy (PEG) tube placement Current Visit: Yes Status: Acute (3) Sacral decubitus ulcer, stage IV Current Visit: Yes Status: Acute (4) Achalasia Current Visit: Yes Status: Acute (5) Bipolar 1 disorder Current Visit: Yes Status: Acute (6) Schizophrenia Current Visit: Yes Status: Acute - Plan Plan of care as mentioned below. At this time. Possible discharge on 1. Arranging for discharge . 2. Continue tube feedings 3. Protein supplementationn 4. Wound care 5. Pain control; 6. Antipsychosis 7. DVT prophylaxis
--- NOTE | 2021-01-20 03:09 | P.DS ---
Discharge Date: 01/15/21 Primary Care Provider: none Disposition: HOSPICE-HOME Discharge Condition: GOOD Reason for Admission: Debility, achalasia, sacral decubitus Consultations: Psychiatry, infectious disease - Problems (1) Malnutrition Status: Chronic Qualifiers: Malnutrition type: unspecified type Qualified Code(s): E46 - Unspecified protein-calorie malnutrition (2) S/P percutaneous endoscopic gastrostomy (PEG) tube placement Status: Chronic (3) Sacral decubitus ulcer, stage IV Status: Acute (4) Achalasia Status: Chronic (5) Bipolar 1 disorder Status: Chronic (6) Schizophrenia Status: Chronic Qualifiers: Schizophrenia type: unspecified Qualified Code(s): F20.9 - Schizophrenia, unspecified Brief History of Present Illness: Patient is a 35-year-old male with history of schizophrenia, diabetes mellitus type 2, hypertension, bipolar disorder, achalasia with severe malnutrition presents emergency department for left hip pain. Patient with large left hip decubitus stage 3-4. Patient was recently released from [facility] after having PEG tube inserted, daughter Gay reports that when he was discharged he was supposed to have placement set up but the patient care arborist representative at [facility] stated that there was miscommunication between the physician and clinical social worker and the patient did not have placement aligned. Patient was discharged back to his mother and father's house who are both disabled after having strokes and unable to care for him. Patient was brought into the emergency department for pain and inability to care for patient at home. Case was discussed with sister at length, they do not have the resources to care for her brother at home as both of her parents are disabled themselves and patient requires a high level of care with large chronic wound, PEG tube e tc. At this time patient has nowhere to be discharged to. For that reason he will be admitted under observation until a solution can be found. Large decubitus to left hip with granulation tissue present, appears to be reasonably healthy, will consult wound healing for evaluation. Hospital Course: Patient's family was not able to care for him in the hospital. So we treated his sacral wound in the hospital and gave him 6 weeks of IV antibiotic therapy. We continued aggressive wound care and to feedings. Patient with able to tolerate some food orally. Patient long-term prognosis is poor. At this time, patient will be coming on hospice with family. Long-term prognosis is poor. Vital Signs/Physical Exam: Temp Pulse Resp BP Pulse Ox 97.6 F 89 14 85/60 L 100 01/15/21 12:00 01/15/21 12:00 01/15/21 12:00 01/15/21 12:00 01/15/21 12:00 General: Alert, In no apparent distress, Oriented x3 Other Physical/Emotional Findings: General: Alert, In no apparent distress, Cachectic, Other (severe malnutrition ). HEENT: Atraumatic, Normocephalic, PERRLA. Neck: Supple, 2+ carotid pulse no bruit, JVD not distended, No Thyromegaly. Respiratory: Clear to auscultation bilaterally, Normal air movement. Cardiovascular: No edema, Normal pulses, Regular rate/rhythm. Capillary refill: <2 Seconds. Gastrointestinal: Normal bowel sounds, Soft and benign, PEG tube placed. Musculoskeletal: Other (diffuse muscle wasting ). Integumentary: Other (sacral stage 4 wound-healing. Base of wound shows 100% granulation tissue, No drainage from wound bed. Periwound tissue is clean, dry, intact with no signs of acute infection. ). Urinary: Baltazar catheter Laboratory Data at Discharge: WBC 6.20 K/uL (4.3-10.9) D 01/15/21 11:08 Hgb 10.3 g/dL (13.6-17.9) L 01/15/21 11:08 Hct 31.1 % (39.6-49.0) L 01/15/21 11:08 Plt Count 223 K/uL (152-406) 01/15/21 11:08 PT 12.2 SECONDS (9.5-12.5) 12/03/20 06:55 INR 1.06 12/03/20 06:55 APTT 33.8 SECONDS (24.3-36.9) 12/03/20 06:55 Sodium 140 mmol/L (136-145) 01/13/21 12:21 Potassium 4.2 mmol/L (3.5-5.1) 01/13/21 12:21 BUN 9 mg/dL (7-18) 01/13/21 12:21 Creatinine 0.25 mg/dL (0.55-1.3) L 01/13/21 12:21 Glucose 87 mg/dL (74-106) 01/13/21 12:21 Phosphorus 3.4 mg/dL (2.5-4.9) 12/08/20 06:59 Magnesium 2.0 mg/dL (1.8-2.4) 01/04/21 05:43 Total Bilirubin 0.3 mg/dL (0.2-1.0) 12/08/20 06:59 AST 26 U/L (15-37) 12/08/20 06:59 ALT 15 U/L (12-78) 12/08/20 06:59 Alkaline Phosphatase 108 U/L (45-117) 12/08/20 06:59 Home Medications: Hydrocodone/APAP Soln [Lortab Solution] 15 ml FT Q6HR PRN 11/28/20 Benztropine Mesylate [Cogentin*] 0.5 mg PO BID #60 tab 01/15/21 Folic Acid 1 mg FT DAILY #30 01/15/21 Gabapentin 100 mg FT TID #90 01/15/21 Hydrocodone 10/APAP 325 [[place] 10/325*] 1 tab PO Q6H PRN #60 tab 01/15/21 Jevity 1.2 Yaya Liquid 240 ml FT TID #90 bot 01/15/21 Lactulose [Cephulac*] 30 ml PO BID PRN #500 ml 01/15/21 Medihoney [Medihoney Woundcare Gel*] 1 appl TOP DAILY #1 tube 01/15/21 Midodrine HCl [Proamatine*] 5 mg PO TID #90 tab 01/15/21 Mirtazapine [Remeron*] 15 mg PO BEDTIME #30 tab 01/15/21 Multivitamin Oral Liq [Theravite Liq*] 5 ml FT DAILY #300 ml 01/15/21 Risperidone [Risperdal] 1 mg FT BID #60 01/15/21 Venlafaxine HCl [Effexor*] 37.5 mg PO DAILY #30 tab 01/15/21 New Medications: Lactulose [Cephulac*] 30 ml PO BID PRN #500 ml PRN Reason: Constipation Benztropine Mesylate [Cogentin*] 0.5 mg PO BID #60 tab Venlafaxine HCl [Effexor*] 37.5 mg PO DAILY #30 tab Folic Acid 1 mg FT DAILY #30 Gabapentin 100 mg FT TID #90 Jevity 1.2 Yaya Liquid 240 ml FT TID #90 bot Medihoney [Medihoney Woundcare Gel*] 1 appl TOP DAILY #1 tube Hydrocodone 10/APAP 325 [[place] 10/325*] 1 tab PO Q6H PRN #60 tab PRN Reason: Pain Scale 5-7 (Moderate) Midodrine HCl [Proamatine*] 5 mg PO TID #90 tab Mirtazapine [Remeron*] 15 mg PO BEDTIME #30 tab Risperidone [Risperdal] 1 mg FT BID #60 Multivitamin Oral Liq [Theravite Liq*] 5 ml FT DAILY #300 ml Physician Discharge Instructions: OK TO DC IV AND DC HOME with [facility] FOLLOW-UP WITH PRIMARY CARE PROVIDER IN 1-2 WEEKS RETURN TO THE ER IF symptoms worsen CALL or TEXT DR. CARTY AT [phone] IF ANY QUESTIONS REGARDING HOSPITAL STAY. PLEASE CALL THE FLOOR AT [phone] IF ANY MEDICATION OR NURSING QUESTIONS. Diet: AHA Activity: Fall precautions Followup: NONE,NONE [Primary Care Provider] - Time spent managing pt's care (in minutes): 35
== END 2021-01-15 14:31 | disposition hospice, home (50) | DRG 592 ==
LOC: ER 19:35 → ERHOLD 11-28 00:18 → OBSVTOIN 11-28 08:18 → 2ND 11-28 16:34
PROVIDERS: ADMIT Family Medicine; ATTEND Hospitalist
DX: L89.154 Pressure ulcer of sacral region, stage 4 (principal); E43 Unspecified severe protein-calorie malnutrition; L03.115 Cellulitis of right lower limb; Z68.1 Body mass index [BMI] 19.9 or less, adult; K22.0 Achalasia of cardia; E11.649 Type 2 diabetes mellitus with hypoglycemia without coma; I10 Essential (primary) hypertension; F31.9 Bipolar disorder, unspecified; F20.9 Schizophrenia, unspecified; D63.8 Anemia in other chronic diseases classified elsewhere; F41.9 Anxiety disorder, unspecified; R53.81 Other malaise; Z79.899 Other long term (current) drug therapy; Z20.822 Contact with and (suspected) exposure to COVID-19
CPT/HCPCS: 36415; 51702; 71045; 74176; 80048; 80053; 80076; 80202; 82565; 82607; 82728; 82947; 83036; 83540; 83605; 83735; 83880; 84100; 84132; 84145; 84466; 84484; 85025; 85610; 85730; 86850; 86900; 86901; 92610; 94760; 96374; 96375; 97110; 97112; 97116; 97161; 97530; 97542; 99285; G0378; J1630; J2270; J2405; J2916; J3010; J3370; J3486; J7030; J7040; J7050; J7799; U0003

== ENCOUNTER 2021-06-12 21:35 | Observation (INO) | payer OTHER ==
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
[2021-06-12 23:42] LABS: Absolute Lymphocytes (CBC) 1.7 K/uL (0.7-4.9); Basophils % 0.3 % (0-1.3); Hematocrit 34.3 % (39.6-49.0); Lymphocytes % 17.8 % (15.3-44.8); MPV 9.1 fL (7.6-11.3); RBC Red Blood Cell Count 3.78 M/uL (4.33-5.43)
[2021-06-13 00:48] LABS: ALT/SGPT 18 U/L (12-78); AST/SGOT 15 U/L (15-37); Albumin 3.5 g/dL (3.4-5.0); Alkaline Phosphatase 62 U/L (45-117); BUN Blood Urea Nitrogen 9 mg/dL (7-18); Bicarbonate 29 mmol/L (21-32); Bilirubin Direct 0.2 mg/dL (0-0.2); Bilirubin Total 0.6 mg/dL (0.2-1.0); Glucose Level 50 mg/dL (74-106); Protein, Total 8.4 g/dL (6.4-8.2); Sodium Level 153 mmol/L (136-145)
--- NOTE | 2021-06-13 01:17 | ER ---
Nurse's Notes [facility] Name: Tahir Ag Jr Age: 36 yrs Sex: Male : 1985 Arrival Date: 06/12/2021 Time: 21:41 Bed 20 Private MD: Diagnosis: Hypokalemia;Hyperosmolality and hypernatremia;Fall Presentation: 06/12 21:49 Chief complaint: Patient states: patient presents to the ED via EMS for fall around 1 ms4 pm today. patient has hematoma to back of head and abrasions to both knees. patient reports he is normally in a wheelchair and was weak and fell three times. patient reportedly laid in parking lot until police arrived at 2150. Coronavirus screen: Client denies travel out of the [place] in the last 14 days. At this time, the client does not indicate any symptoms associated with coronavirus-19. Ebola Screen: Patient negative for fever greater than or equal to 101.5 degrees Fahrenheit, and additional compatible Ebola Virus Disease symptoms Patient denies exposure to infectious person. Patient denies travel to an Ebola-affected area in the 21 days before illness onset. No symptoms or risks identified at this time. Initial Sepsis Screen: Does the patient meet any 2 criteria? No. Patient's initial sepsis screen is negative. Does the patient have a suspected source of infection? No. Patient's initial sepsis screen is negative. Risk Assessment: Do you want to hurt yourself or someone else? Patient reports no desire to harm self or others. Onset of symptoms was June 12, 2021. 21:49 Method Of Arrival: EMS: [facility] ms4 21:49 Acuity: MARTINA 3 ms4 Triage Assessment: 22:15 General: Appears distressed, Behavior is calm, cooperative. Pain: Complains of pain in ms4 scalp, right leg and left leg. Neuro: No deficits noted. Cardiovascular: No deficits noted. Respiratory: No deficits noted. Historical: - Allergies: 22:14 No Known Allergies; ms4 - Home Meds: 22:14 Unable to obtain [Active]; ms4 - PMHx: 22:14 Bipolar disorder; Diabetes - NIDDM; Hernia; Hypertension; Schizophrenia; ms4 - Immunization history:: Adult Immunizations up to date, Client reports receiving the 2nd dose of the Covid vaccine. - Social history:: Smoking status: Patient reports the use of cigarette tobacco products, Patient denies any tobacco usage or history of. Screenin:56 Abuse screen: Denies threats or abuse. Denies injuries from another. Nutritional ms4 screening: No deficits noted. Tuberculosis screening: No symptoms or risk factors identified. Fall Risk Fall in past 12 months (25 points). Secondary diagnosis (15 points) impaired mobility, IV access (20 points). Ambulatory Aid- Crutches/Cane/Walker (15 pts). Gait- Impaired (20 pts.). Mental Status- Oriented to own ability (0 pts). Total Durham Fall Scale indicates High Risk Score (45 or more points). 1:1 Attendant Assigned As available patient and family educated on Fall Prevention Program and Strategies. Assessment: 23:54 General: Appears in no apparent distress. Behavior is calm, cooperative. Pain: ms4 Complains of pain in left leg and right leg and scalp. Neuro: No deficits noted. Cardiovascular: No deficits noted. Respiratory: No deficits noted. Vital Signs: 21:49 BP 106 / 66; Pulse 77; Resp 18; Temp 97.8; Pulse Ox 97% ; Weight 39.46 kg; Height 5 ft. ms4 6 in. (167.64 cm); Pain 8/10; 23:55 BP 101 / 64; Pulse 84; Resp 18; Pulse Ox 98% ; Pain 8/10; ms4 06/13 02:25 BP 98 / 62; Pulse 53; Resp 18; Pulse Ox 98% on R/A; em 03:02 BP 108 / 70; Pulse 54; Resp 16; Pulse Ox 99% on R/A; Pain 10/10; em 06/12 21:49 Body Mass Index 14.04 (39.46 kg, 167.64 cm) ms4 ED Course: 06/12 21:41 Patient arrived in ED. bp1 21:49 Susie Schaffer, MARTINA is Primary Nurse. ms4 21:53 Triage completed. ms4 22:01 Alan Nguyễn MD is Attending Physician. mh7 22:17 Arm band placed on right wrist. ms4 22:48 Femur Right XRAY Sent. ms4 22:48 Knee Left 3 View XRAY Sent. ms4 22:48 Knee Right 3 View XRAY Sent. ms4 22:48 CT Head C Spine Sent. ms4 22:50 CT Head C Spine In Process Unspecified. EDMS 23:08 Knee Right 3 View XRAY In Process Unspecified. EDMS 23:09 Knee Left 3 View XRAY In Process Unspecified. EDMS 23:09 Femur Right XRAY In Process Unspecified. EDMS 23:57 No provider procedures requiring assistance completed. ms4 23:58 Inserted saline lock: 22 gauge in right hand, using aseptic technique. Blood collected. ms4 06/13 01:15 Aryan Florence MD is Hospitalizing Provider. [facility] Administered Medications: 06/12 23:43 Drug: Tetanus-Diphtheria Toxoid Adult 0.5 ml {Envelope Adjuster: [employer]. Exp: ms4 06/24/2021. Lot #: [id number]. } Route: IM; Site: left deltoid; 23:50 Follow up: Response: No adverse reaction ms4 23:43 Drug: NS 0.9% 1000 ml Route: IV; Rate: 1000 ml; Site: right wrist; ms4 23:43 Drug: morphine 2 mg Route: IVP; Site: right hand; ms4 23:43 Drug: Zofran (Ondansetron) 4 mg Route: IVP; Site: right wrist; ms4 23:49 Follow up: Response: No adverse reaction ms4 23:50 Drug: morphine 2 mg Route: IVP; Site: left antecubital; ms4 23:50 Follow up: Response: No adverse reaction ms4 06/13 02:08 Drug: Potassium Chloride 20 mEq Route: IV; Rate: per protocol; Site: right forearm; em 02:08 Drug: D5W with KCL 20 mEq/L 1000 ml Route: IV; Rate: 100 ml/hr; Site: right forearm; em 03:03 Drug: morphine 2 mg Route: IVP; Site: right forearm; em Outcome: 01:16 Decision to Hospitalize by Provider. [facility] 18:37 Patient left the ED. Signatures: Dispatcher [employer] Sina Barrow RN RN em Williams, Irene, RN RN Rea Reardon Maurice, MD MD 7 Susie Schaffer RN RN nh4
--- NOTE | 2021-06-13 01:17 | EDPHYS ---
Physician Documentation [facility] Name: Tahir Ag Jr Age: 36 yrs Sex: Male : 1985 Arrival Date: 06/12/2021 Time: 21:41 Bed 20 Private MD: ED Physician Alan Nguyễn HPI: 06/12 22:24 This 36 yrs old Black Male presents to ER via EMS with complaints of Fall Injury. mh7 22:24 Details of fall: The patient fell from an upright position, while walking. Onset: The mh7 symptoms/episode began/occurred today, at 13:00. Associated injuries: The patient sustained injury to the head, contusion, hematoma, Left knee, right knee. Severity of symptoms: At their worst the symptoms were moderate, earlier today, in the emergency department the symptoms have improved, moderately. The patient has experienced similar episodes in the past, several times. Patient states that he was walking and his legs gave out. He states this is happened multiple times in the past due to history of malnutrition. Denies any LOC, neck pain. Denies any headache, chest pain, abdominal pain, shortness of breath, fever, cough, dizziness, numbness/tingling.. Historical: - Allergies: 22:14 No Known Allergies; ms4 - Home Meds: 22:14 Unable to obtain [Active]; ms4 - PMHx: 22:14 Bipolar disorder; Diabetes - NIDDM; Hernia; Hypertension; Schizophrenia; ms4 - Immunization history:: Adult Immunizations up to date, Client reports receiving the 2nd dose of the Covid vaccine. - Social history:: Smoking status: Patient reports the use of cigarette tobacco products, Patient denies any tobacco usage or history of. ROS: 22:24 Constitutional: Negative for fever, chills, and weight loss, Eyes: Negative for injury, mh7 pain, redness, and discharge, ENT: Negative for injury, pain, and discharge, Neck: Negative for injury, pain, and swelling, Cardiovascular: Negative for chest pain, palpitations, and edema, Respiratory: Negative for shortness of breath, cough, wheezing, and pleuritic chest pain, Abdomen/GI: Negative for abdominal pain, nausea, vomiting, diarrhea, and constipation, Back: Negative for injury and pain, : Negative for injury, bleeding, discharge, and swelling. 22:24 Psych: Negative for depression, anxiety, suicide ideation, homicidal ideation, and hallucinations, Allergy/Immunology: Negative for hives, rash, and allergies, Endocrine: Negative for neck swelling, polydipsia, polyuria, polyphagia, and marked weight changes, Hematologic/Lymphatic: Negative for swollen nodes, abnormal bleeding, and unusual bruising. 22:24 Skin: Positive for abrasion(s). Exam: 22:24 Eyes: Pupils equal round and reactive to light, extra-ocular motions intact. Lids and mh7 lashes normal. Conjunctiva and sclera are non-icteric and not injected. Cornea within normal limits. Periorbital areas with no swelling, redness, or edema. ENT: Nares patent. No nasal discharge, no septal abnormalities noted. Tympanic membranes are normal and external auditory canals are clear. Oropharynx with no redness, swelling, or masses, exudates, or evidence of obstruction, uvula midline. Mucous membranes moist. Neck: Trachea midline, no thyromegaly or masses palpated, and no cervical lymphadenopathy. Supple, full range of motion without nuchal rigidity, or vertebral point tenderness. No Meningismus. Chest/axilla: Normal chest wall appearance and motion. Nontender with no deformity. No lesions are appreciated. Cardiovascular: Regular rate and rhythm with a normal S1 and S2. No gallops, murmurs, or rubs. Normal PMI, no JVD. No pulse deficits. Respiratory: Lungs have equal breath sounds bilaterally, clear to auscultation and percussion. No rales, rhonchi or wheezes noted. No increased work of breathing, no retractions or nasal flaring. Abdomen/GI: Soft, non-tender, with normal bowel sounds. No distension or tympany. No guarding or rebound. No evidence of tenderness throughout. Back: No spinal tenderness. No costovertebral tenderness. Full range of motion. 22:24 Neuro: Awake and alert, GCS 15, oriented to person, place, time, and situation. Cranial nerves II-XII grossly intact. Motor strength 5/5 in all extremities. Sensory grossly intact. Cerebellar exam normal. Normal gait. Psych: Awake, alert, with orientation to person, place and time. Behavior, mood, and affect are within normal limits. 22:24 Constitutional: The patient appears in no acute distress, alert, awake, frail. 22:24 Head/face: Noted is contusion, that is superficial, of the Posterior scalp. 22:24 Musculoskeletal/extremity: Extremities: noted in the Left knee: abrasion, noted in the Right knee: abrasion, ROM: intact in all extremities, Circulation is intact in all extremities. Sensation intact. Compartment Syndrome exam of affected extremity: is normal. no numbness, no tingling, no sensation deficit, no palor, no weak pulses, Joints: All joints appear normal with full range of motion. Weight bearing: can bear weight with assistance only, uses walker, Tendon exam: specific tendon testing normal through active and passive range of motion 22:24 Skin: injury, abrasion(s), small abrasion noted, of the Left knee, right knee, contusion(s), that are superficial, of the Posterior scalp. Vital Signs: 21:49 BP 106 / 66; Pulse 77; Resp 18; Temp 97.8; Pulse Ox 97% ; Weight 39.46 kg; Height 5 ft. ms4 6 in. (167.64 cm); Pain 8/10; 23:55 BP 101 / 64; Pulse 84; Resp 18; Pulse Ox 98% ; Pain 8/10; ms4 06/13 02:25 BP 98 / 62; Pulse 53; Resp 18; Pulse Ox 98% on R/A; em 03:02 BP 108 / 70; Pulse 54; Resp 16; Pulse Ox 99% on R/A; Pain 10/10; em 06/12 21:49 Body Mass Index 14.04 (39.46 kg, 167.64 cm) ms4 MDM: 01:14 Differential diagnosis: abrasion, closed head injury, contusion, fracture. Data [facility] reviewed: vital signs, nurses notes, EMS record, lab test result(s), cardiac enzymes, CBC, electrolytes, EKG, radiologic studies, CT scan, plain films. Data interpreted: Pulse oximetry: on room air is 98 %. Interpretation: normal. Counseling: I had a detailed discussion with the patient and/or guardian regarding: the historical points, exam findings, and any diagnostic results supporting the discharge/admit diagnosis, lab results, radiology results, the need for further work-up and treatment in the hospital. Response to treatment: the patient's symptoms have mildly improved after treatment. 01:16 Patient medically screened. [facility] 06/12 22:23 Order name: Basic Metabolic Panel; Complete Time: 01:11 [facility] 06/12 22:23 Order name: CBC with Diff; Complete Time: 23:57 [facility] 06/12 22:23 Order name: Type And Screen; Complete Time: 01:11 [facility] 06/12 22:23 Order name: LFT's; Complete Time: 01:11 [facility] 06/12 22:30 Order name: Troponin (emerg Dept Use Only); Complete Time: 01:11 [facility] 06/13 01:14 Order name: Magnesium [facility] 06/13 05:38 Order name: COVID-19 : Document "Date of Symptom Onset" if Symptomatic. tt3 06/13 05:53 Order name: CORONAVIRUS EDMS 06/13 06:08 Order name: CBC with Automated Diff EDMS 06/13 06:47 Order name: SARS-COV-2 RT PCR EDMS 06/13 08:41 Order name: Comprehensive Metabolic Panel EDMS 06/13 08:41 Order name: T4 Free EDMS 06/13 08:41 Order name: Magnesium EDMS 06/13 08:41 Order name: Thyroid Stimulating Hormone MS 06/12 22:23 Order name: CT Head C Spine [facility] 06/12 22:23 Order name: Labs collected and sent; Complete Time: 22:48 [facility] 06/12 22:23 Order name: Knee Right 3 View XRAY [facility] 06/12 22:23 Order name: Knee Left 3 View XRAY [facility] 06/12 22:23 Order name: Femur Right XRAY [facility] 06/12 22:23 Order name: EKG - Nurse/Tech; Complete Time: 00:27 [facility] 06/13 11:56 Order name: Potassium EDMS Administered Medications: 06/12 23:43 Drug: Tetanus-Diphtheria Toxoid Adult 0.5 ml {Board Certified Orthodontist: [employer]. Exp: ms4 06/24/2021. Lot #: [id number]. } Route: IM; Site: left deltoid; 23:50 Follow up: Response: No adverse reaction ms4 23:43 Drug: NS 0.9% 1000 ml Route: IV; Rate: 1000 ml; Site: right wrist; ms4 23:43 Drug: morphine 2 mg Route: IVP; Site: right hand; ms4 23:43 Drug: Zofran (Ondansetron) 4 mg Route: IVP; Site: right wrist; ms4 23:49 Follow up: Response: No adverse reaction ms4 23:50 Drug: morphine 2 mg Route: IVP; Site: left antecubital; ms4 23:50 Follow up: Response: No adverse reaction ms4 06/13 02:08 Drug: Potassium Chloride 20 mEq Route: IV; Rate: per protocol; Site: right forearm; em 02:08 Drug: D5W with KCL 20 mEq/L 1000 ml Route: IV; Rate: 100 ml/hr; Site: right forearm; em 03:03 Drug: morphine 2 mg Route: IVP; Site: right forearm; em Disposition Summary: 06/13/21 01:16 Hospitalization Ordered Hospitalization Status: Inpatient Admission [facility] Provider: Aryan Florence Condition: Stable [facility] Problem: new [facility] Symptoms: have improved [facility] Bed/Room Type: Standard [facility] Location: [facility] ER HOLD(06/13/21 01:43) Room Assignment: ERHOLD-(06/13/21 01:43) Diagnosis - Hypokalemia [facility] - Hyperosmolality and hypernatremia [facility] - Fall [facility] Forms: - Medication Reconciliation Form [facility] - SBAR form [facility] Signatures: Dispatcher [employer] Sina Barrow RN RN em Garcia, Cindy, RN RN Alan Nguyễn MD MD [facility] Susie Schaffer RN RN ms4 Corrections: (The following items were deleted from the chart) 01:43 01:16 Telemetry/MedSurg (Inpatient) [facility] [place] 01:43 01:16 [facility]
[2021-06-13] MEDS ORDERED: KCL 20 MEQ/100 mL IVPB 20 MEQ/100 ML BAG IV ONE (02:28)
[2021-06-13] MEDS ORDERED: NS KCL 20MEQ 1,000 ML IV ONE (02:28)
--- NOTE | 2021-06-13 02:28 | P.HP ---
Patient History Date of Service: 06/13/21 Reason for admission: Hypokalemia, hyponatremia, dehydration History of Present Illness: 36-year-old Afro-[place]ian male with history of achalasia, bipolar disorder, diabetes mellitus type 2, hypertension, schizophrenia presents emerged department after a fall. Patient reportedly was on her way to interview when he fell in the parking lot, patient was transferred to the emergency department for evaluation, all imaging modalities negative for any acute findings labs were significant for hemoglobin 11.3 but a crit 34.3 sodium 153 potassium 2.0 chloride 117 glucose 50. ED progress to admit for further evaluation and management of hypokalemia, hypernatremia. Allergies No Known Allergies Allergy (Unverified 12/10/11 10:57) Home Medications: Hydrocodone/APAP Soln [Lortab Solution] 15 ml FT Q6HR PRN 11/28/20 Benztropine Mesylate [Cogentin*] 0.5 mg PO BID #60 tab 01/15/21 Folic Acid 1 mg FT DAILY #30 01/15/21 Gabapentin 100 mg FT TID #90 01/15/21 Hydrocodone 10/APAP 325 [[place] 10/325*] 1 tab PO Q6H PRN #60 tab 01/15/21 Jevity 1.2 Yaya Liquid 240 ml FT TID #90 bot 01/15/21 Lactulose [Cephulac*] 30 ml PO BID PRN #500 ml 01/15/21 Medihoney [Medihoney Woundcare Gel*] 1 appl TOP DAILY #1 tube 01/15/21 Midodrine HCl [Proamatine*] 5 mg PO TID #90 tab 01/15/21 Mirtazapine [Remeron*] 15 mg PO BEDTIME #30 tab 01/15/21 Multivitamin Oral Liq [Theravite Liq*] 5 ml FT DAILY #300 ml 01/15/21 Risperidone [Risperdal] 1 mg FT BID #60 01/15/21 Venlafaxine HCl [Effexor*] 37.5 mg PO DAILY #30 tab 01/15/21 - Past Medical/Surgical History -: Diabetes mellitus type 2 -: Achalasia with severe malnutrition -: Bipolar disorder -: Schizophrenia -: PEG tube Psychosocial/ Personal History: Patient with severe bipolar/schizophrenia, achalasia, chronic wounds. Patient was staying with his parents who are now disabled. - Family History Family History: Reviewed- Non-Contributory - Social History Smoking Status: Never smoker Alcohol use: No CD- Drugs: No Caffeine use: No Place of Residence: Home Review of Systems 10-point ROS is otherwise unremarkable General: Weakness, Malaise Physical Examination - Physical Exam General: Alert, In no apparent distress, Oriented x3 HEENT: Atraumatic, PERRLA, Mucous membr. moist/pink, EOMI, Sclerae nonicteric Neck: Supple, 2+ carotid pulse no bruit, No LAD, Without JVD or thyroid abnormality Respiratory: Clear to auscultation bilaterally, Normal air movement Cardiovascular: Regular rate/rhythm, Normal S1 S2 Gastrointestinal: Normal bowel sounds, No tenderness Musculoskeletal: No tenderness Integumentary: No rashes Neurological: Normal speech, Normal strength at 5/5 x4 extr, Normal tone, Normal affect Lymphatics: No axilla or inguinal lymphadenopathy - Studies Laboratory Data (last 24 hrs) 06/13/21 00:13: Sodium 153 H, Potassium 2.0 L*, BUN 9, Creatinine 0.75, Glucose 50 L, Total Bilirubin 0.6, AST 15, ALT 18, Alkaline Phosphatase 62 06/12/21 23:28: WBC 9.50, Hgb 11.3 L, Hct 34.3 L, Plt Count 247 Assessment and Plan - Plan Assessment: Hypokalemia, hyponatremia secondary to dehydration, malnutrition with history of achalasia with PEG tube in place Diabetes type 2 currently with hypoglycemia Hypertension Schizophrenia Plan: Hypokalemia, hyponatremia secondary to dehydration, malnutrition with history of achalasia with PEG tube in place: Potassium protocol in place continue with D5W with KCl. Encourage nutrition via PEG tube/p.o. Diabetes type 2 currently with hypoglycemia: Continue with D5W with KCl, monitor glucose level. Hypertension: Blood pressure soft at this time hold antihypertensive agents. Schizophrenia: Continue home medications. DVT PPX: SCDs Code status: Full Discharge Plan: Home Plan to discharge in: 24 Hours - Advance Directives Does patient have a Living Will: No Does patient have a Durable POA for Healthcare: No - Code Status/Comfort Care Code Status Assessed: Yes (Full code) Critical Care: No Time Spent Managing Pts Care (In Minutes): 55
[2021-06-13] MEDS ORDERED: ONDANSETRON 4 MG/2 ML VIAL IV PRN (02:59)
[2021-06-13] MEDS ORDERED: HYDROCODONE/APAP 7.5/325 MG TAB PO PRN (02:59)
[2021-06-13] MEDS: D5.45NS W/KCL 20MEQ 1,000 ML IV SCH ×2 (02:59→12:45)
[2021-06-13] MEDS ORDERED: MORPHINE 2 MG/ML SYR ONE (03:26)
[2021-06-13 04:20] VITALS: BMI 13.8
[2021-06-13] MEDS ORDERED: D5.45NS W/KCL 20MEQ 1,000 ML IV ONE (04:36)
[2021-06-13 05:57] LABS: Absolute Lymphocytes (CBC) 3.3 K/uL (0.7-4.9); Basophils % 0.3 % (0-1.3); Lymphocytes % 37.6 % (15.3-44.8); RBC Red Blood Cell Count 3.12 M/uL (4.33-5.43)
[2021-06-13] MEDS ORDERED: POTASSIUM 25 MEQ EFFERV TAB PO ONE (08:39)
[2021-06-13 08:40] LABS: ALT/SGPT 15 U/L (12-78); AST/SGOT 14 U/L (15-37); Albumin 2.8 g/dL (3.4-5.0); Alkaline Phosphatase 52 U/L (45-117); BUN Blood Urea Nitrogen 7 mg/dL (7-18); Bicarbonate 29 mmol/L (21-32); Bilirubin Total 0.5 mg/dL (0.2-1.0); Glucose Level 69 mg/dL (74-106); Protein, Total 6.7 g/dL (6.4-8.2); Sodium Level 150 mmol/L (136-145); Thyroid Stimulating Hormone 0.973 uIU/mL (0.360-3.740)
[2021-06-13] MEDS ORDERED: ONDANSETRON 4 MG/2 ML VIAL ONE (08:40)
[2021-06-13] MEDS ORDERED: HYDROCODONE/APAP 7.5/325 MG TAB ONE (08:40)
[2021-06-13 08:41] LABS: Potassium 2.1 mmol/L (3.5-5.1)
[2021-06-13] MEDS ORDERED: POTASSIUM 25 MEQ EFFERV TAB ONE ×2 (09:40→13:02)
[2021-06-13] MEDS ORDERED: POTASSIUM 25 MEQ EFFERV TAB FT ONE (10:30)
[2021-06-13 16:20] VITALS: BP 115/89; TEMP 98.4
[2021-06-13 18:58] VITALS: O2SAT 99
--- NOTE | 2021-06-15 11:06 | RAD REPORT ---
EXAM DESCRIPTION: RAD - Femur Right - 06/12/2021 11:09 pm CLINICAL HISTORY: 36 years, Male, trauma Femur Right COMPARISON: None. FINDINGS: 2 X-ray views of the Right femur were performed. There is no acute fracture or dislocation. There is no focal soft tissue swelling. There are no retained opaque foreign bodies. Excrescent lesion is noted within the distal portion of the femur/supracondylar area perhaps correspo nding to a enchondroma. There is shallow appearance of the acetabulum with CAM deformity of the right hip joint which could s uggest the possibility of of femoral acetabular impingement. IMPRESSION: No acute fracture or dislocation of the right femur. Probable enchondroma in the distal portion of the right femur. Electronically signed by: Reji Munoz MD 06/13/2021 12:17 AM CDT Due to temporary technical issues with the PACS/Fluency reporting system, reports are being signed by the in house radiologist without review as a courtesy to ensure prompt reporting. The interpreting r adiologist is fully responsible for the content of the report.
--- NOTE | 2021-06-15 11:09 | RAD REPORT ---
EXAM DESCRIPTION: RAD - Knee Right 3 View - 06/12/2021 11:09 pm CLINICAL HISTORY: 36 years, Male, trauma COMPARISON: None. FINDINGS: 3 X-ray views of the Right knee (Frontal, lateral and oblique views) were performed. There is no evidence for fracture or dislocation. No gross articular or soft tissue abnormality is id entified. There is no joint effusion. There is no periostitis. Noted is the presence of a excrescent posterior tibial plateau/posterior tibial bony lesion. Similar type lesion is identified within the posterior aspect of the fibula and medial posterior aspect of th e supracondylar area of the femur suggesting the possibility of osteochondroma. In addition central lucency is also demonstrated therefore the possibility of the benign cystic lesio n/unicameral bone cyst could be included in differential. There are no definitive evidence for acute displaced fracture. No definitive displaced fracture are identified, if symptoms persist, clinical correlation and/or fur ther evaluation with CT scan and/or MRI could be of assistance. IMPRESSION: No definitive evidence of acute traumatic injury. Multiple bony lesions, as described above, may represent osteochondroma. Electronically signed by: Reji Munoz MD 06/13/2021 12:13 AM CDT Due to temporary technical issues with the PACS/Fluency reporting system, reports are being signed by the in house radiologist without review as a courtesy to ensure prompt reporting. The interpreting r adiologist is fully responsible for the content of the report.
--- NOTE | 2021-06-15 11:10 | RAD REPORT ---
EXAM DESCRIPTION: RAD - Knee Left 3 View - 06/12/2021 11:09 pm CLINICAL HISTORY: 36 years, Male, trauma COMPARISON: None. FINDINGS: 3 X-ray views of the left knee (Frontal, lateral and oblique views) were performed. There is no evidence for fracture or dislocation. No gross articular or soft tissue abnormality is id entified. There is no joint effusion. There is questionable minimal prepatellar soft tissue thicken ing Noted is the presence of a excrescent proximal aspect of the tibia and fibula. Similar type lesion is identified within the posterior aspect of the femur suggesting the possibility of osteochondroma. There are no definitive evidence for acute displaced fracture. No definitive displaced fracture are identified, if symptoms persist, clinical correlation and/or fur ther evaluation with CT scan and/or MRI could be of assistance. IMPRESSION: No definitive evidence for acute displaced fracture or dislocation. Questionable minimal prepatellar soft tissue thickening. Excrescent proximal aspect of the tibia and fibula lesion, and within the proximal femur suggesting t he possibility of osteochondromas. Electronically signed by: Reji Munoz MD 06/13/2021 12:16 AM CDT Due to temporary technical issues with the PACS/Fluency reporting system, reports are being signed by the in house radiologist without review as a courtesy to ensure prompt reporting. The interpreting r adiologist is fully responsible for the content of the report.
--- NOTE | 2021-06-15 11:46 | RAD REPORT ---
EXAM DESCRIPTION: CT - Head C Spine Mpr Wo Con - 06/13/2021 6:40 am CLINICAL HISTORY: Trauma COMPARISON: 10/10/2020. TECHNIQUE: CT Head and Cervical spine WO contrast on 06/12/2021 10:23 PM CDT This exam was performed according to our departmental dose-optimization program, which includes autom ated exposure control, adjustment of the mA and/or kV according to patient size and/or use of iterati ve reconstruction technique. FINDINGS: Brain: There is no acute hemorrhage, mass effect or midline shift. Bean-white differentiat ion is preserved. There is no hydrocephalus. There is no significant volume loss for age. The calvarium is intact. Orbits and globes are unremarkable. The paranasal sinuses are clear. Mastoid air cells are clear. Cervical Spine: There is no acute fracture. Alignment is anatomic. Disc spaces are maintained. Vertebral body heights are preserved. Soft tissues are unremarkable. IMPRESSION: No acute postraumatic findings. Electronically signed by: Horacio Navarro MD 06/12/2021 11:27 PM CDT Due to temporary technical issues with the PACS/Fluency reporting system, reports are being signed by the in house radiologist without review as a courtesy to ensure prompt reporting. The interpreting r adiologist is fully responsible for the content of the report.
== END 2021-06-13 18:17 | disposition home or self-care (01) ==
LOC: ER 21:35 → ERHOLD 06-13 02:06
PROVIDERS: ADMIT Hospitalist; ATTEND Hospitalist
DX: E87.6 Hypokalemia (principal); E86.0 Dehydration; S80.212A Abrasion, left knee, initial encounter; S80.211A Abrasion, right knee, initial encounter; S00.03XA Contusion of scalp, initial encounter; W19.XXXA Unspecified fall, initial encounter; Y92.481 Parking lot as the place of occurrence of the external cause; K22.0 Achalasia of cardia; E46 Unspecified protein-calorie malnutrition; Z68.1 Body mass index [BMI] 19.9 or less, adult; E11.649 Type 2 diabetes mellitus with hypoglycemia without coma; I10 Essential (primary) hypertension; F20.9 Schizophrenia, unspecified; F31.9 Bipolar disorder, unspecified; Z93.1 Gastrostomy status; F17.210 Nicotine dependence, cigarettes, uncomplicated; Z23 Encounter for immunization; Z20.822 Contact with and (suspected) exposure to COVID-19
CPT/HCPCS: 93005; 85025 ×2; 80048; 36415; 86900; 83735; 86850; 84132; 86901; 80076; 84443; 84484; 84439; 80053; 70450; 72125; 73562 ×2; 73552; 90471; 99284; U0003; J3480 ×2; J2270; J2405; G0378 ×2

== ENCOUNTER 2021-07-30 17:42 | Emergency (ER) | payer OTHER ==
--- NOTE | 2021-07-30 19:39 | RAD REPORT ---
EXAM DESCRIPTION: CT - Head Brain Wo Cont - 07/30/2021 7:23 pm CLINICAL HISTORY: Headache;Trauma COMPARISON: Head Brain Wo Cont dated 05/19/2018 TECHNIQUE: Axial 5 mm thick images of the head were obtained without IV contrast. All CT scans are performed using dose optimization technique as appropriate and may include automated exposure control or mA/KV adjustment according to patient size. FINDINGS: No intracranial hemorrhage, mass, edema or shift of mid-line structures. No acute infarcti on changes seen. No abnormal extra-axial fluid collections. Ventricles are normal. No significant sca lp hematoma identified. No foreign body in scalp soft tissues. Mastoid air cells are clear. Trace mucosal thickening in the maxillary sinuses. There is questionable postsurgical change to the nasal septum inferiorly. The nasal passages and nasal septum are not full y imaged. No acute bony findings. IMPRESSION: Negative non-contrast CT head examination for acute or significant finding.
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
[2021-07-30] MEDS ORDERED: ONDANSETRON 4 MG (ODT) TAB ONE (20:38)
[2021-07-30] MEDS ORDERED: HYDROCODONE/APAP 5/325 MG TAB ONE (20:38)
[2021-07-30 21:06] VITALS: O2SAT 100
[2021-07-30 21:08] VITALS: BP 110/68; TEMP 98
== END 2021-07-30 20:50 | disposition home or self-care (01) ==
LOC: ER 17:42
DX: S00.90XA Unspecified superficial injury of unspecified part of head, initial encounter (principal); V18.0XXA Pedal cycle driver injured in noncollision transport accident in nontraffic accident, initial encounter; I10 Essential (primary) hypertension; F17.210 Nicotine dependence, cigarettes, uncomplicated
CPT/HCPCS: 70450; 99284

== ENCOUNTER 2021-08-18 18:40 | Emergency (ER) | payer OTHER ==
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
--- NOTE | 2021-08-18 20:25 | RAD REPORT ---
EXAM DESCRIPTION: RAD - Pelvis - 08/18/2021 7:44 pm CLINICAL HISTORY: fall COMPARISON: No comparisonsNo comparisons FINDINGS: No acute fracture. No malalignment. Degenerative changes of the bilateral acetabula. 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 IMPRESSION: No acute osseous abnormality involving the bony pelvis.
[2021-08-18] MEDS ORDERED: MORPHINE 4 MG/ML SYR ONE (20:27)
--- NOTE | 2021-08-18 20:33 | EDPHYS ---
Physician Documentation [facility] Name: Tahir Ag Jr Age: 36 yrs Sex: Male : 1985 Arrival Date: 08/18/2021 Time: 18:41 Bed 17 Private MD: ED Physician Keshawn Fish HPI: 08/18 20:29 This 36 yrs old Black Male presents to ER via EMS with complaints of head injury hip jmm pain. 20:29 Details of fall: The patient fell from an upright position. Onset: The symptoms/episode jmm began/occurred acutely, just prior to arrival. Associated injuries: The patient sustained injury to the head, pelvis. The patient has not experienced similar symptoms in the past. It is unknown whether or not the patient has had similar symptoms in the past. Patient trpped and fell, hit his head, unknown loc. also complains of pain to the pelvis. Historical: - Allergies: 18:44 No Known Allergies; ch5 - Immunization history:: Adult Immunizations unknown, Client reports having NOT received the Covid vaccine. - Social history:: Smoking status: Patient reports the use of cigarette tobacco products, smokes one-half pack cigarettes per day. ROS: 20:29 Constitutional: Negative for fever, chills, and weight loss, Cardiovascular: Negative jmm for chest pain, palpitations, and edema, Respiratory: Negative for shortness of breath, cough, wheezing, and pleuritic chest pain. 20:29 MS/extremity: Positive for injury or acute deformity. 20:29 Neuro: Positive for headache. 20:29 All other systems are negative. Exam: 20:29 Constitutional: This is a well developed, well nourished patient who is awake, alert, jmm and in no acute distress. Head/Face: atraumatic. Eyes: EOMI, no conjunctival erythema appreciated ENT: Moist Mucus Membranes Neck: Trachea midline, Supple Chest/axilla: Normal chest wall appearance and motion. Cardiovascular: Regular rate and rhythm. No edema appreciated Respiratory: Normal respirations, no respiratory distress appreciated Abdomen/GI: Non distended, soft Back: Normal ROM Skin: General appearance color normal 20:29 Musculoskeletal/extremity: bilateral pelvis pain on palpation. 20:29 Skin: Appearance: Color: normal in color. 20:29 Neuro: Orientation: is normal, Mentation: is normal, Memory: is normal. 20:29 Psych: Behavior/mood is pleasant, cooperative. Vital Signs: 18:41 BP 99 / 69; Pulse 68; Resp 16; Temp 98; Pulse Ox 100% ; Weight 40.82 kg; Height 5 ft. 5 ch5 in. (165.10 cm); Pain 8/10; 18:48 BP 99 / 69; Pulse 69; Resp 15; Pulse Ox 100% on R/A; ch5 21:50 BP 93 / 76; Pulse 66; Resp 18; Pulse Ox 100% on R/A; lh3 18:41 Body Mass Index 14.98 (40.82 kg, 165.10 cm) ch5 MDM: 19:07 Patient medically screened. [facility] 20:31 Data reviewed: vital signs, nurses notes. Counseling: I had a detailed discussion with terell the patient and/or guardian regarding: the historical points, exam findings, and any diagnostic results supporting the discharge/admit diagnosis, radiology results, the need for outpatient follow up, to return to the emergency department if symptoms worsen or persist or if there are any questions or concerns that arise at home. 08/18 19:11 Order name: CT Head C Spine; Complete Time: 19:55 [facility] 08/18 19:11 Order name: Pelvis XRAY; Complete Time: 20:29 [facility] Administered Medications: 20:06 Drug: morphine 4 mg Route: IM; Site: right ventrogluteal; [facility] 21:50 Follow up: Response: Pain is decreased lh3 Disposition: 08/19 08:01 Co-signature as Attending Physician, Keshawn Fish MD I agree with the assessment and [facility] plan of care. Disposition Summary: 08/18/21 20:32 Discharge Ordered Location: Home [facility] Condition: Stable [facility] Diagnosis - Unspecified injury of head, initial encounter [facility] Followup: [facility] - With: Private Physician - When: 2 - 3 days - Reason: Recheck today's complaints, Continuance of care, Re-evaluation by your physician Discharge Instructions: - Discharge Summary Sheet [facility] - Head Injury, Adult [facility] - Pelvic Pain, Male [facility] Forms: - Medication Reconciliation Form [facility] - Thank You Letter [facility] - Antibiotic Education [facility] - Prescription Opioid Use [facility] Signatures: Dispatcher [employer] Keshawn Silva MD MD cha Mickail, Joel, PA PA jmm Heath, Christopher RN RN ch5 Anita Garcia RN lh3
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
[2021-08-18 22:33] VITALS: TEMP 98; O2SAT 100
[2021-08-18 22:36] VITALS: BP 93/76
== END 2021-08-18 22:21 | disposition home or self-care (01) ==
LOC: ER 18:40
DX: S09.90XA Unspecified injury of head, initial encounter (principal); R10.2 Pelvic and perineal pain; W01.0XXA Fall on same level from slipping, tripping and stumbling without subsequent striking against object, initial encounter; F17.210 Nicotine dependence, cigarettes, uncomplicated
CPT/HCPCS: 70450; 72125; 72170; 96372; 99283

== ENCOUNTER 2021-08-19 12:24 | Observation (INO) | payer OTHER ==
[2021-08-19 13:13] LABS: Absolute Lymphocytes (CBC) 2.8 K/uL (0.7-4.9); Basophils % 0.2 % (0-1.3); Hematocrit 31.1 % (39.6-49.0); Lymphocytes % 56.3 % (15.3-44.8)
[2021-08-19 13:26] LABS: BUN Blood Urea Nitrogen 11 mg/dL (7-18); Bicarbonate 32 mmol/L (21-32); Glucose Level 72 mg/dL (74-106); Sodium Level 145 mmol/L (136-145)
--- NOTE | 2021-08-19 13:53 | EDPHYS ---
Physician Documentation [facility] Name: Tahir Ag Jr Age: 36 yrs Sex: Male : 1985 Arrival Date: 08/19/2021 Time: 12:26 Bed 25 Private MD: ED Physician Omari Wang HPI: 08/19 13:22 This 36 yrs old Black Male presents to ER via EMS with complaints of Weakness. kb 13:22 The patient presents with generalized weakness. Onset: The symptoms/episode kb began/occurred yesterday. Context: occurred while the patient was walking. Modifying factors: The symptoms are alleviated by nothing, the symptoms are aggravated by nothing. Associated signs and symptoms: Pertinent positives: headache. Severity of symptoms: At their worst the symptoms were moderate in the emergency department the symptoms are unchanged. Patient's baseline: Neuro: alert and fully oriented, Motor: no deficits, Ambulation: walks without assistance, Speech: normal. The patient has experienced similar episodes in the past, a few times. The patient has been recently seen at the [facility] Emergency Department, yesterday. Pt states he tripped and fell yesterday hitting his head. Came here for evaluation and was sent home. sTates he came back today because he is still having a headache and feels weak. States his potassium gets low at times so he is concerned that it is low now and they didn't check it yesterday. Historical: - PMHx: 12:45 Bipolar disorder; Diabetes - NIDDM; Hernia; Hypertension; Schizophrenia; jw6 - Immunization history:: Adult Immunizations Adult Immunizations up to date. - Social history:: Smoking status: Patient reports the use of cigarette tobacco products, smokes one-half pack cigarettes per day. ROS: 13:24 Constitutional: Negative for fever, chills, and weight loss. kb 13:24 Neuro: Positive for headache, weakness. 13:24 All other systems are negative. Exam: 13:24 Constitutional: This is a well developed, well nourished patient who is awake, alert, kb and in no acute distress. Head/Face: Normocephalic, atraumatic. ENT: Moist Mucous membranes Cardiovascular: Regular rate and rhythm with a normal S1 and S2. No gallops, murmurs, or rubs. No pulse deficits. Respiratory: Respirations even and unlabored. No increased work of breathing, no retractions or nasal flaring. Skin: Warm, dry with normal turgor. Normal color. MS/ Extremity: Pulses equal, no cyanosis. Neurovascular intact. Full, normal range of motion. Neuro: Awake and alert, GCS 15, oriented to person, place, time, and situation. Moves all extremities. Normal gait. Psych: Awake, alert, with orientation to person, place and time. Behavior, mood, and affect are within normal limits. 14:49 ECG was reviewed by the Attending Physician. rn Vital Signs: 12:43 BP 93 / 72; Pulse 50; Resp 16; Temp 98.9; Pulse Ox 100% ; Weight 40.82 kg; Height 5 ft. jw6 5 in. (165.10 cm); Pain 8/10; 14:34 BP 114 / 87; Pulse 65; Resp 18; Pulse Ox 100% on R/A; jw6 12:43 Body Mass Index 14.98 (40.82 kg, 165.10 cm) jw6 NIH Stroke Scale Scores: 12:48 NIHSS Score: 0 jw6 MDM: 12:29 Patient medically screened. kb 13:08 Data reviewed: vital signs, nurses notes. Data interpreted: Pulse oximetry: on room air kb is 100 %. Interpretation: normal. 13:50 Counseling: I had a detailed discussion with the patient and/or guardian regarding: the kb historical points, exam findings, and any diagnostic results supporting the discharge/admit diagnosis, lab results. Physician consultation: Mitch Wang MD was contacted at 13:51, regarding admission, to the telemetry unit. patient's condition, and will see patient in ED, shortly. 08/19 12:30 Order name: CBC with Diff kb 08/19 12:30 Order name: Basic Metabolic Panel kb 08/19 13:16 Order name: CBC with Automated Diff; Complete Time: 13:20 EDMS 08/19 13:30 Order name: Basic Metabolic Panel; Complete Time: 13:30 EDMS 08/19 14:03 Order name: SARS-COV-2 RT PCR (Document "Date of Onset" if Symptomatic) iw 08/19 15:44 Order name: SARS-COV-2 RT PCR; Complete Time: 15:45 EDMS 08/19 12:30 Order name: IV Start; Complete Time: 12:58 kb 08/19 13:32 Order name: EKG; Complete Time: 16:43 kb 08/19 13:32 Order name: EKG - Nurse/Tech; Complete Time: 14:27 kb EC:49 Rate is 45 beats/min. Rhythm is regular. QRS [place] is Normal. MS interval is normal. QRS rn interval is normal. QT interval is normal. No Q waves. T waves are Normal. No ST changes noted. Clinical impression: Sinus bradycardia. Interpreted by me. Reviewed by me. Administered Medications: 14:30 Drug: NS 0.9% with KCl 40 mEq/L 1000 ml Route: IV; Rate: 125 calculated rate; Site: [facility] left antecubital; Point of Care Testing: Blood Glucose: 12:45 Blood Glucose: 111 mg/dL; [facility] Ranges: Critical Glucose Levels:Adult <50 mg/dl or >400 mg/dl <40 mg/dl or >180 mg/dl Disposition: 14:51 Co-signature as Attending Physician, Omari Wang MD I agree with the assessment and rn plan of care. PA/[employer]'s history reviewed, patient interviewed, and examined. HPI: 36-year-old male seen here yesterday, presents with generalized weakness and concern that has low potassium as he has had low potassium before. My personal exam of patient reveals: 36-year-old male with no acute distress, no focal weakness, generalized weakness and low muscle volume. I agree with assessment and care plan and confirm the diagnosis (es) above. Disposition Summary: 08/19/21 13:52 Hospitalization Ordered Hospitalization Status: Observation kb Provider: Mitch Wang Location: Telemetry/MedSurg (observation)(08/19/21 13:52) kb Condition: Stable(08/19/21 13:52) kb Problem: new kb Symptoms: are unchanged kb Bed/Room Type: Standard Room Assignment: 430(08/19/21 17:00) iw Diagnosis - Hypokalemia(08/19/21 13:52) kb - Weakness(08/19/21 13:52) kb Forms: - Medication Reconciliation Form kb - SBAR form kb NIH Stroke Scale - NIH Stroke Score Date: 08/19/2021 Time: 12:48 Total Score = 0 1a. Level of Consciousness (LOC) - 0(Alert) 1b. Level of Consciousness (LOC) (Month \\T\\ Age) - 0(Both) 1c. LOC Commands (Open \\T\\ Closes Eyes/[employer] Dean) - 0(Both) 2. Best Gaze (Lateral Gaze Paresis) - 0(Normal) 3. Visual Field Loss - 0(No visual loss) 4. Facial Palsy - 0(Normal) 5a. Left Arm: Motor (10-second hold) - 0(No drift) 5b. Right Arm: Motor (10-second hold) - 0(No drift) 6a. Left Leg: Motor (5-second hold - always test supine) - 0(No drift) 6b. Right Leg: Motor (5-second hold - always test supine) - 0(No drift) 7. Limb Ataxia (finger/nose \\T\\ heel/parker - test with eyes open) - 0(Absent) 8. Sensory Loss (pinprick arms/legs/face) - 0(Normal) 9. Best Language: Aphasia (description/naming/reading) - 0(No aphasia) 10. Dysarthria (speech clarity - read or repeat words) - 0(Normal) 11. Extinction and Inattention (visual/tactile/auditory/spatial/personal) - 0(No abnormality) Initials: jw6 Signatures: Dispatcher [employer] EDKasey Garcia, ASSISTANT PROFESSOR OF ANTHROPOLOGY-C ASSISTANT PROFESSOR OF ANTHROPOLOGY-Ckb Xiomara Clarke RN RN iw Nieto, Roman, MD MD rn Welch, Jessica jw6 Corrections: (The following items were deleted from the chart) 13:52 13:52 Home kb kb 13:52 13:52 Stable kb kb 13:52 13:52 Weakness kb kb 13:52 13:52 Hypokalemia kb kb 17:00 13:52 kb iw
--- NOTE | 2021-08-19 13:53 | ER ---
Nurse's Notes [facility] Name: Tahir Ag Jr Age: 36 yrs Sex: Male : 1985 Arrival Date: 08/19/2021 Time: 12:26 Bed 25 Private MD: Diagnosis: Hypokalemia;Weakness Presentation: 08/19 12:43 Chief complaint: Patient states: c/o weakness and "low potassium levels". wants K jw6 levels checked. Coronavirus screen: Vaccine status: Patient reports being unvaccinated. Client denies travel out of the [place] in the last 14 days. At this time, the client does not indicate any symptoms associated with coronavirus-19. Ebola Screen: Patient negative for fever greater than or equal to 101.5 degrees Fahrenheit, and additional compatible Ebola Virus Disease symptoms Patient denies exposure to infectious person. Patient denies travel to an Ebola-affected area in the 21 days before illness onset. Initial Sepsis Screen: Does the patient meet any 2 criteria? No. Patient's initial sepsis screen is negative. Does the patient have a suspected source of infection? No. Patient's initial sepsis screen is negative. Risk Assessment: Do you want to hurt yourself or someone else? Patient reports no desire to harm self or others. Onset of symptoms was August 18, 2021. 12:43 Method Of Arrival: EMS [facility] 12:43 Acuity: MARTINA 4 jw6 13:28 Acuity: MARTINA 3 iw Triage Assessment: 12:45 The onset of the patients symptoms was August 18, 2021 at 12:00. General: Appears in jw6 no apparent distress. Behavior is cooperative. Pain: Complains of pain in right hip. EENT: No deficits noted. Neuro: Reports weakness. Cardiovascular: No deficits noted. Respiratory: No deficits noted. GI: PEG tube. : No deficits noted. Derm: No deficits noted. Musculoskeletal: No deficits noted. Historical: - PMHx: 12:45 Bipolar disorder; Diabetes - NIDDM; Hernia; Hypertension; Schizophrenia; jw6 - Immunization history:: Adult Immunizations Adult Immunizations up to date. - Social history:: Smoking status: Patient reports the use of cigarette tobacco products, smokes one-half pack cigarettes per day. Screenin:48 Abuse screen: Denies threats or abuse. Denies injuries from another. Nutritional jw6 screening: patient states no appetite x 2 days. Tuberculosis screening: No symptoms or risk factors identified. Fall Risk Fall in past 12 months (25 points). IV access (20 points). Gait- Weak (10 pts.). Mental Status-. Assessment: 12:48 VAN Scoring: Arm Drift: Patients demonstrates NO arm weakness. Patient is VAN Negative. jw6 The patient is alert, and able to follow commands. The patient does not exhibit slurred or garbled speech. The patient is not exhibiting difficulty speaking. The patient does not exhibit difficulty understanding words. The patient passed the bedside swallow screening. Oral medications may be given as ordered. Contact Physician for further diet orders. Vital Signs: 12:43 BP 93 / 72; Pulse 50; Resp 16; Temp 98.9; Pulse Ox 100% ; Weight 40.82 kg; Height 5 ft. jw6 5 in. (165.10 cm); Pain 8/10; 14:34 BP 114 / 87; Pulse 65; Resp 18; Pulse Ox 100% on R/A; jw6 12:43 Body Mass Index 14.98 (40.82 kg, 165.10 cm) jw6 NIH Stroke Scale Scores: 12:48 NIHSS Score: 0 jw6 ED Course: 12:26 Patient arrived in ED. ds1 12:29 Kasey Morales FNP-C is [facility]. kb 12:29 Omari Wang MD is Attending Physician. kb 12:40 Niesha Raza is Primary Nurse. jw6 12:45 Triage completed. jw6 12:48 Arm band placed on left wrist. jw6 12:48 Patient has correct armband on for positive identification. Bed in low position. Call jw6 light in reach. Side rails up X2. Warm blanket given. 12:48 No provider procedures requiring assistance completed. jw6 12:58 Initial lab(s) drawn, by me, sent to lab. Inserted saline lock: 22 gauge in right 5 antecubital area, using aseptic technique. Blood collected. 13:16 Diet tray given. PO fluids given. jw6 13:52 Mitch Wang MD is Hospitalizing Provider. kb 14:35 EKG done, COVID swab sent to lab. 5 16:34 Accessed peripheral vein via ultrasound, utilizing dynamic ultrasound technique using jd3 20G Nexia IV catheter ,sterile technique, per hospital protocol. Clean \\T\\ dry. Dressing intact. Good blood return. Flushes easily. left AC. 17:12 Report given to MARTINA figueroa. jw6 17:42 Patient admitted, IV remains in place. jw6 Administered Medications: 14:30 Drug: NS 0.9% with KCl 40 mEq/L 1000 ml Route: IV; Rate: 125 calculated rate; Site: [facility] left antecubital; Point of Care Testing: Blood Glucose: 12:45 Blood Glucose: 111 mg/dL; jw6 Ranges: Outcome: 13:52 Discharge ordered by . kb 13:52 Decision to Hospitalize by Provider. kb 17:41 Admitted to Med/surg accompanied by tech, via stretcher, with chart. jw6 17:41 Condition: good 17:41 Instructed on the need for admit. 17:57 Patient left the ED. jw6 NIH Stroke Scale - NIH Stroke Score Date: 08/19/2021 Time: 12:48 Total Score = 0 1a. Level of Consciousness (LOC) - 0(Alert) 1b. Level of Consciousness (LOC) (Month \\T\\ Age) - 0(Both) 1c. LOC Commands (Open \\T\\ Closes Eyes/[employer]) - 0(Both) 2. Best Gaze (Lateral Gaze Paresis) - 0(Normal) 3. Visual Field Loss - 0(No visual loss) 4. Facial Palsy - 0(Normal) 5a. Left Arm: Motor (10-second hold) - 0(No drift) 5b. Right Arm: Motor (10-second hold) - 0(No drift) 6a. Left Leg: Motor (5-second hold - always test supine) - 0(No drift) 6b. Right Leg: Motor (5-second hold - always test supine) - 0(No drift) 7. Limb Ataxia (finger/nose \\T\\ heel/parker - test with eyes open) - 0(Absent) 8. Sensory Loss (pinprick arms/legs/face) - 0(Normal) 9. Best Language: Aphasia (description/naming/reading) - 0(No aphasia) 10. Dysarthria (speech clarity - read or repeat words) - 0(Normal) 11. Extinction and Inattention (visual/tactile/auditory/spatial/personal) - 0(No abnormality) Initials: [facility] Signatures: Kasey Morales, COKE CRANE OPERATOR-C COKE CRANE OPERATOR-Ckb Ketty Marquez ds1 Xiomara Clarke, RN RN iw Madeline Bell 5 Kilo Reed RN RN jd3 Niesha Raza 6
[2021-08-19] MEDS ORDERED: ONDANSETRON 4 MG/2 ML VIAL IV PRN (14:26)
[2021-08-19] MEDS ORDERED: HYDROCODONE/APAP 7.5/325 MG TAB PO PRN (14:26)
[2021-08-19] MEDS ORDERED: NA CHLORIDE 0.9% 1,000 ML with POTASSIUM CL 40 MEQ IV SCH ×2 (14:30)
[2021-08-19] MEDS ORDERED: LACTULOSE 20 GM/30 ML UCUP PO PRN (14:40)
--- NOTE | 2021-08-19 14:40 | P.HP ---
Certification for Inpatient Patient admitted to: Observation With expected LOS: <2 Midnights Practitioner: I am a practitioner with admitting privileges, knowledge of patient current condition, hospital course, and medical plan of care. Services: Services provided to patient in accordance with Admission requirements found in Title 42 Section 412.3 of the Code of Federal Regulations Patient History Date of Service: 08/19/21 Reason for admission: Hypokalemia History of Present Illness: 36-year-old male achalasia s/p PEG, bipolar disorder, diabetes mellitus type 2, hypertension, schizophrenia. Presents to the ED due to knee pain after a fall, and overall not feeling well. Patient fell last night, presented to ED, had negative x-rays, labs notable for hypokalemia which improved, patient was discharged home. He states today he continued with pain in his knees and overall did not feel well so he came back to the ED. Again his potassium was noted to be low at 2.0. Otherwise vitals and labs were unremarkable. He denies any recent infection, no recent nausea/vomiting/diarrhea, no change in medications. He reports history of hypokalemia, this happens occasionally. He was admitted and subsequently discharged approximately 2 months ago. He is discharged to take potassium supplementation, however he states he stopped taking this over a month ago due to running out. ER provider requested admission for observation overnight and replacement of hypokalemia. Allergies No Known Allergies Allergy (Unverified 12/10/11 10:57) Home Medications: Hydrocodone/APAP Soln [Lortab Solution *] 15 ml FT Q6HR PRN 11/28/20 Benztropine Mesylate [Cogentin*] 0.5 mg PO BID #60 tab 01/15/21 Folic Acid 1 mg FT DAILY #30 01/15/21 Gabapentin 100 mg FT TID #90 01/15/21 Hydrocodone 10/APAP 325 [Skippers 10/325*] 1 tab PO Q6H PRN #60 tab 01/15/21 Jevity 1.2 Yaya Liquid 240 ml FT TID #90 bot 01/15/21 Lactulose [Cephulac*] 30 ml PO BID PRN #500 ml 01/15/21 Medihoney [Medihoney Woundcare Gel*] 1 appl TOP DAILY #1 tube 01/15/21 Midodrine HCl [Proamatine*] 5 mg PO TID #90 tab 01/15/21 Mirtazapine [Remeron*] 15 mg PO BEDTIME #30 tab 01/15/21 Multivitamin Oral Liq [Theravite Liq*] 5 ml FT DAILY #300 ml 01/15/21 Risperidone [Risperdal] 1 mg FT BID #60 01/15/21 Venlafaxine HCl [Effexor*] 37.5 mg PO DAILY #30 tab 01/15/21 Hydrocodone 7.5/APAP 325 [Skippers 7.5/325 mg*] 1 tab PO Q6H PRN #30 tab 06/13/21 Potassium Phos,T-Ebbsi-Y-Basic [Vaidvs-Rkss-J] 1 each PO BID #60 packet 06/13/21 - Past Medical/Surgical History -: Diabetes mellitus type 2 -: Achalasia with severe malnutrition -: Bipolar disorder -: Schizophrenia -: PEG tube Psychosocial/ Personal History: Patient with severe bipolar/schizophrenia, achalasia, chronic wounds. Patient was staying with his parents who are now disabled. - Social History Smoking Status: Current every day smoker (1 pack/day) Alcohol use: No CD- Drugs: No Caffeine use: No Place of Residence: Home (With parents) Review of Systems 10-point ROS is otherwise unremarkable Physical Examination - Physical Exam General: Alert, In no apparent distress, Oriented x3 HEENT: Atraumatic, PERRLA, Sclerae nonicteric Neck: No LAD Respiratory: Clear to auscultation bilaterally, Normal air movement Cardiovascular: No edema, Regular rate/rhythm Gastrointestinal: Soft and benign, Non-distended, No tenderness Musculoskeletal: No swelling, Tenderness (mild b/l knees) Integumentary: No rashes, No significant lesion Neurological: Normal speech, Normal strength at 5/5 x4 extr, Normal affect - Studies Laboratory Data (last 24 hrs) 08/19/21 13:00: Sodium 145, Potassium 2.0 L*, BUN 11, Creatinine 0.67, Glucose 72 L 08/19/21 13:00: WBC 5.00, Hgb 10.4 L, Hct 31.1 L, Plt Count 217 Assessment and Plan - Advance Directives Does patient have a Living Will: No Does patient have a Durable POA for Healthcare: No Physician Review Additional Text: Problem list hypokalemia, acute on chronic Diabetes mellitus type 2, [id number] Achalasia with PEG tube in place Hypertension Schizophrenia Patient received some IV fluids with potassium replacement in the ER Continue with further potassium replacement Suspect this is secondary to not taking his potassium replacement at home X-rays reviewed, no evidence of fracture We will give one-time dose of morphine now, continue Skippers which patient takes at home Fall was mechanical, he tripped. He states this happens occasionally, is nothing new PT consulted Recheck potassium later tonight VTE: Lovenox dispo: Anticipate discharge home tomorrow Time Spent Managing Pts Care (In Minutes): 60
[2021-08-19] MEDS ORDERED: POTASSIUM 25 MEQ EFFERV TAB FT SCH (15:00)
[2021-08-19] MEDS ORDERED: MORPHINE 2 MG/ML SYR IV ONE (16:00)
[2021-08-19] MEDS: INSULIN -REGULAR HUMAN 50 UNIT/0.5 ML ML SQ SCH ×2 (16:30→20:56)
[2021-08-19] MEDS: ENOXAPARIN 40 MG/0.4 ML SQ SCH (17:58)
[2021-08-19] MEDS: POTASSIUM 25 MEQ EFFERV TAB FT SCH ×2 (18:10→21:44)
[2021-08-19 18:45] VITALS: O2SAT 94
[2021-08-19] MEDS: JEVITY 1.2 CAL LIQUID 1,000 ML BOT FT SCH (20:02)
[2021-08-19] MEDS: GABAPENTIN 100 MG CAP FT SCH (20:03)
[2021-08-19] MEDS: BENZTROPINE 1 MG TAB PO SCH (20:03)
[2021-08-19] MEDS: RISPERIDONE 1 MG TABLET FT SCH (20:04)
[2021-08-19] MEDS: NA CHLORIDE 0.9% 1,000 ML with POTASSIUM CL 40 MEQ IV SCH ×2 (20:04)
[2021-08-19] MEDS: MIDODRINE HCL 5 MG TABLET PO SCH (20:04)
[2021-08-19] MEDS ORDERED: MIRTAZAPINE 15 MG TAB PO SCH (21:00)
[2021-08-19 21:12] VITALS: BMI 15.0
[2021-08-20] MEDS: NA CHLORIDE 0.9% 1,000 ML with POTASSIUM CL 40 MEQ IV SCH ×2 (03:14)
[2021-08-20 04:02] LABS: Absolute Lymphocytes (CBC) 3.1 K/uL (0.7-4.9); Basophils % 0.6 % (0-1.3); Hematocrit 28.6 % (39.6-49.0); Lymphocytes % 57.3 % (15.3-44.8); MPV 9.4 fL (7.6-11.3); RBC Red Blood Cell Count 3.15 M/uL (4.33-5.43)
[2021-08-20 04:28] LABS: BUN Blood Urea Nitrogen 9 mg/dL (7-18); Bicarbonate 32 mmol/L (21-32); Glucose Level 84 mg/dL (74-106); Magnesium 2.3 mg/dL (1.8-2.4); Sodium Level 149 mmol/L (136-145)
[2021-08-20 04:34] LABS: Potassium 2.9 mmol/L (3.5-5.1)
[2021-08-20] MEDS: KCL 20 MEQ/100 mL IVPB 20 MEQ/100 ML BAG IV SCH ×3 (04:48→08:47)
[2021-08-20] MEDS: INSULIN -REGULAR HUMAN 50 UNIT/0.5 ML ML SQ SCH ×2 (07:30→11:30)
[2021-08-20] MEDS ORDERED: INFLUENZA VACCINE (for 6+ mo) 0.5 ML DOSE IMVAC ONE (08:00)
[2021-08-20] MEDS ORDERED: D5W 1,000 ML IV SCH (08:00)
[2021-08-20] MEDS: MIDODRINE HCL 5 MG TABLET PO SCH ×2 (08:48→14:31)
[2021-08-20] MEDS: POTASSIUM 25 MEQ EFFERV TAB FT SCH (08:48)
[2021-08-20] MEDS: BENZTROPINE 1 MG TAB PO SCH (08:48)
[2021-08-20] MEDS: RISPERIDONE 1 MG TABLET FT SCH (08:49)
[2021-08-20] MEDS: GABAPENTIN 100 MG CAP FT SCH ×2 (08:49→14:32)
[2021-08-20] MEDS: ENOXAPARIN 40 MG/0.4 ML SQ SCH (08:49)
[2021-08-20] MEDS: JEVITY 1.2 CAL LIQUID 1,000 ML BOT FT SCH ×2 (08:54→14:32)
[2021-08-20] MEDS ORDERED: VENLAFAXINE HCL 37.5 MG TAB PO SCH (09:00)
[2021-08-20 14:28] LABS: BUN Blood Urea Nitrogen 7 mg/dL (7-18); Bicarbonate 30 mmol/L (21-32); Glucose Level 122 mg/dL (74-106); Potassium 3.9 mmol/L (3.5-5.1); Sodium Level 151 mmol/L (136-145)
[2021-08-20 17:11] VITALS: BP 100/68; TEMP 97.4
--- NOTE | 2021-08-20 20:17 | P.DS ---
Admission Date: 08/19/21 Discharge Date: 08/20/21 Disposition: ROUTINE DISCHARGE Discharge Condition: GOOD Reason for Admission: Hypokalemia Procedures: Problem list hypokalemia, acute on chronic Achalasia with PEG tube in place Hypertension Schizophrenia Brief History of Present Illness: 36-year-old male achalasia s/p PEG, bipolar disorder, hypertension, schizophrenia. Presents to the ED due to knee pain after a fall, and overall not feeling well. Patient fell last night, presented to ED, had negative x- rays, labs notable for hypokalemia which improved, patient was discharged home. He states today he continued with pain in his knees and overall did not feel well so he came back to the ED. Again his potassium was noted to be low at 2.0. Otherwise vitals and labs were unremarkable. He denies any recent infection, no recent nausea/vomiting/diarrhea, no change in medications. He reports history of hypokalemia, this happens occasionally. He was admitted and subse quently discharged approximately 2 months ago. He is discharged to take potassium supplementation, however he states he stopped taking this over a month ago due to running out. ER provider requested admission for observation overnight and replacement of hypokalemia. Hospital Course: Patient responded well/appropriate to potassium replacement. He was feeling well the following day, ambulated well with PT, vitals stable, tolerating diet without issue. His potassium improved up to 3.9. He was discharged home with daily potassium replacement. Counselled on importance of compliance. He was reportedly discharged home with potassium replacement last month, but states he never picked up the prescription. Unclear if patient is taking his prescription medications at home. advised to f/u with PCP in 3-5 days and to have repeat BMP to follow potassium levels. Vital Signs/Physical Exam: Temp Pulse Resp BP Pulse Ox 97.4 F 66 16 100/68 100 08/20/21 16:00 08/20/21 16:00 08/20/21 16:00 08/20/21 16:00 08/20/21 16:00 General: Alert, In no apparent distress, Oriented x3, Other (thin) HEENT: PERRLA, Sclerae nonicteric Cardiovascular: No edema, Regular rate/rhythm Gastrointestinal: Soft and benign, Non-distended, No tenderness Musculoskeletal: No swelling, No erythema Integumentary: No rashes, No significant lesion Neurological: Normal speech, Normal strength at 5/5 x4 extr, Normal affect Laboratory Data at Discharge: WBC 5.30 K/uL (4.3-10.9) 08/20/21 03:13 Hgb 9.4 g/dL (13.6-17.9) L 08/20/21 03:13 Hct 28.6 % (39.6-49.0) L 08/20/21 03:13 Plt Count 213 K/uL (152-406) 08/20/21 03:13 Sodium 151 mmol/L (136-145) H 08/20/21 14:02 Potassium 3.9 mmol/L (3.5-5.1) 08/20/21 14:02 BUN 7 mg/dL (7-18) 08/20/21 14:02 Creatinine 0.58 mg/dL (0.55-1.3) 08/20/21 14:02 Glucose 122 mg/dL (74-106) H 08/20/21 14:02 Magnesium 2.3 mg/dL (1.8-2.4) 08/20/21 03:13 Home Medications: Gabapentin 100 mg FT TID #90 01/15/21 Jevity 1.2 Yaya Liquid 240 ml FT TID #90 bot 01/15/21 Lactulose [Cephulac*] 30 ml PO BID PRN #500 ml 01/15/21 Midodrine HCl [Proamatine*] 5 mg PO TID #90 tab 01/15/21 Mirtazapine [Remeron*] 15 mg PO BEDTIME #30 tab 01/15/21 Risperidone [Risperdal] 1 mg FT BID #60 01/15/21 Venlafaxine HCl [Effexor*] 37.5 mg PO DAILY #30 tab 01/15/21 Hydrocodone 7.5/APAP 325 [[place] 7.5/325 mg*] 1 tab PO Q6H PRN #30 tab 06/13/21 Potassium Bicarbonate/Cit AC [Effer-K 20 Meq Tablet Eff] 20 meq PO DAILY 30 Days #30 tablet.eff 08/20/21 New Medications: Potassium Bicarbonate/Cit AC [Effer-K 20 Meq Tablet Eff] 20 meq PO DAILY 30 Days #30 tablet.eff Physician Discharge Instructions: You were found to have low potassium, similar to your last admission. It is important you warp picker the prescription and take as prescribed. Do not stop taki ng the medication without talking to your doctor. Follow up with your PCP in 3-5 days. Recommend repeat blood test to check for potassium levels to see if you need any further adjustment. Continue other home medications as previously prescribed. Followup: NONE,NONE [Primary Care Provider] - Time spent managing pt's care (in minutes): 45
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
== END 2021-08-20 20:20 | disposition home or self-care (01) ==
LOC: ER 12:24 → ERHOLD 14:46 → 4TH 17:20
PROVIDERS: ADMIT Hospitalist; ATTEND Hospitalist
DX: E87.6 Hypokalemia (principal); E11.9 Type 2 diabetes mellitus without complications; F31.9 Bipolar disorder, unspecified; I10 Essential (primary) hypertension; Z93.1 Gastrostomy status; K22.0 Achalasia of cardia; F20.9 Schizophrenia, unspecified; F17.210 Nicotine dependence, cigarettes, uncomplicated; Z20.822 Contact with and (suspected) exposure to COVID-19; Z23 Encounter for immunization
CPT/HCPCS: 36415; 80048; 82947; 83735; 84132; 85025; 90471; 93005; 94760; 97161; 99285; G0378; J1650; J2270; J2405; J3480; J7030; Q2035; U0003

== ENCOUNTER 2021-09-18 15:25 | Observation (INO) | payer OTHER ==
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
--- NOTE | 2021-09-18 18:55 | RAD REPORT ---
EXAM DESCRIPTION: RAD - Knee Right 3 View - 09/18/2021 6:45 pm CLINICAL HISTORY: Right knee pain FINDINGS: No fracture or dislocation is seen. Osteochondromas of the distal femur, proximal tibia and fibula are unchanged from May 2021.
--- NOTE | 2021-09-18 18:58 | RAD REPORT ---
EXAM DESCRIPTION: RAD - Knee Left 3 View - 09/18/2021 6:45 pm CLINICAL HISTORY: Left knee pain FINDINGS: No fracture or dislocation is seen. Osteochondromas of the distal femur, proximal tibia and fibula unchanged from May 2021. Prominent chondroid matrix involves the osteochondroma along the lateral aspect of the distal femur. It is charan mmended that the patient have a follow up x-ray in 6 months to assess stability.
[2021-09-18] MEDS ORDERED: NA CHLORIDE 0.9% 500 ML ONE ×2 (22:20→22:30)
[2021-09-18] MEDS ORDERED: MORPHINE 2 MG/ML SYR ONE (22:20)
[2021-09-18] MEDS ORDERED: ONDANSETRON 4 MG/2 ML VIAL ONE ×2 (22:20→22:30)
[2021-09-18] MEDS ORDERED: MORPHINE 4 MG/ML SYR ONE (22:29)
[2021-09-18 23:11] LABS: Absolute Lymphocytes (CBC) 1.7 K/uL (0.7-4.9); Basophils % 0.5 % (0-1.3); Hematocrit 27.5 % (39.6-49.0); Lymphocytes % 36.7 % (15.3-44.8); MPV 8.4 fL (7.6-11.3)
[2021-09-18 23:16] LABS: Protime INR 1.15
[2021-09-18 23:26] LABS: ALT/SGPT 8 U/L (12-78); AST/SGOT 8 U/L (15-37); Alkaline Phosphatase 81 U/L (45-117); BUN Blood Urea Nitrogen 6 mg/dL (7-18); Bicarbonate 34 mmol/L (21-32); Bilirubin Direct 0.1 mg/dL (0-0.2); Bilirubin Total 0.4 mg/dL (0.2-1.0); Glucose Level 105 mg/dL (74-106); Sodium Level 150 mmol/L (136-145)
--- NOTE | 2021-09-19 01:46 | P.HP ---
Certification for Inpatient Patient admitted to: Observation With expected LOS: <2 Midnights Patient will require the following post-hospital care: None Practitioner: I am a practitioner with admitting privileges, knowledge of patient current condition, hospital course, and medical plan of care. Services: Services provided to patient in accordance with Admission requirements found in Title 42 Section 412.3 of the Code of Federal Regulations <Lavelle Horne - Last Filed: 09/19/21 01:41> Patient History Date of Service: 09/19/21 Reason for admission: fall, hypokalemia History of Present Illness: Mr. Ag is a 36 yo M with achalasia with severe malnutrition s/p PEG tube, schizophrenia and bipolar disorder who presents after a fall. He says he hit his head as well as his abdomen. He says he did not pass out. He reports he tripped, which happens frequently. CT Head without acute finding. CTAP pending. H/H 8.7. Na 150. K 2.0. Cl 109. CO2 34. His electrolytes have been abnormal in the past. Admitted for potassium replacement and observation. - Past Medical/Surgical History Diabetic: Yes -: Diabetes mellitus type 2 -: Achalasia with severe malnutrition -: Bipolar disorder -: Schizophrenia -: HTN -: PEG tube Psychosocial/ Personal History: Patient with severe bipolar/schizophrenia, achalasia, chronic wounds. Patient was staying with his parents who are now disabled. - Social History Smoking Status: Unknown if ever smoked Alcohol use: No CD- Drugs: No Caffeine use: No Place of Residence: Home <Lavelle Horne - Last Filed: 09/19/21 01:41> Date of Service: 09/19/21 <Mitch Wang - Last Filed: 09/19/21 17:16> Allergies No Known Allergies Allergy (Unverified 12/10/11 10:57) Home Medications: Gabapentin 100 mg FT TID #90 01/15/21 Jevity 1.2 Yaya Liquid 240 ml FT TID #90 bot 01/15/21 Lactulose [Cephulac*] 30 ml PO BID PRN #500 ml 01/15/21 Midodrine HCl [Proamatine*] 5 mg PO TID #90 tab 01/15/21 Mirtazapine [Remeron*] 15 mg PO BEDTIME #30 tab 01/15/21 Risperidone [Risperdal] 1 mg FT BID #60 01/15/21 Venlafaxine HCl [Effexor*] 37.5 mg PO DAILY #30 tab 01/15/21 Hydrocodone 7.5/APAP 325 [[place] 7.5/325 mg*] 1 tab PO Q6H PRN #30 tab 06/13/21 Potassium Bicarbonate/Cit AC [Effer-K 20 Meq Tablet Eff] 20 meq PO DAILY 30 Days #30 tablet.eff 08/20/21 Review of Systems 10-point ROS is otherwise unremarkable General: Unremarkable Eyes: Unremarkable ENT: Unremarkable Respiratory: Unremarkable Cardiovascular: Unremarkable Gastrointestinal: Abdominal Pain Genitourinary: Unremarkable Musculoskeletal: Leg Pain Integumentary: Unremarkable Neurological: Unremarkable Lymphatics: Unremarkable <Lavelle Horne - Last Filed: 09/19/21 01:41> Physical Examination - Physical Exam General: Alert, In no apparent distress, Cooperative, Cachectic HEENT: Atraumatic, PERRLA, Mucous membr. moist/pink, EOMI, Sclerae nonicteric Neck: Supple, 2+ carotid pulse no bruit, No LAD, Without JVD or thyroid abnormality Respiratory: Clear to auscultation bilaterally, Normal air movement Cardiovascular: Regular rate/rhythm, Normal S1 S2 Gastrointestinal: Normal bowel sounds, No ascites, No masses, No rebound, No guarding, Tenderness Musculoskeletal: Tenderness Integumentary: No rashes Neurological: Normal speech, Normal strength at 5/5 x4 extr, Normal tone, Sensa tion intact, Normal affect Lymphatics: No axilla or inguinal lymphadenopathy - Studies Laboratory Data (last 24 hrs) 09/18/21 22:40: PT 13.3 H, INR 1.15, APTT 33.4 09/18/21 22:40: WBC 4.60, Hgb 8.7 L, Hct 27.5 L, Plt Count 393 09/18/21 22:40: Sodium 150 H, Potassium 2.0 L*, BUN 6 L, Creatinine 0.47 L, Glucose 105, Total Bilirubin 0.4, AST 8 L, ALT 8 L, Alkaline Phosphatase 81 <Lavelle Horne - Last Filed: 09/19/21 01:41> - Studies Laboratory Data (last 24 hrs) 09/18/21 22:40: PT 13.3 H, INR 1.15, APTT 33.4 09/18/21 22:40: WBC 4.60, Hgb 8.7 L, Hct 27.5 L, Plt Count 393 09/18/21 22:40: Sodium 150 H, Potassium 2.0 L*, BUN 6 L, Creatinine 0.47 L, Glucose 105, Total Bilirubin 0.4, AST 8 L, ALT 8 L, Alkaline Phosphatase 81 <Mitch Wang - Last Filed: 09/19/21 17:16> Assessment and Plan - Problems (Diagnosis) (1) Achalasia Status: Chronic (2) Bipolar 1 disorder Status: Chronic (3) Malnutrition Status: Chronic (4) S/P percutaneous endoscopic gastrostomy (PEG) tube placement Status: Chronic (5) Schizophrenia Status: Chronic (6) Hypokalemia Status: Acute (7) Hypernatremia Status: Acute - Plan continue D5W and potassium replacement repeat BMP in the AM, if no improvement in electrolytes, consult nephrology anemia workup pending continue peg tube feeds physical therapy consulted reconcile and continue home medications Discharge Plan: Home Plan to discharge in: 24 Hours - Advance Directives Does patient have a Living Will: No Does patient have a Durable POA for Healthcare: No - Code Status/Comfort Care Code Status Assessed: Yes (full code ) Critical Care: No Time Spent Managing Pts Care (In Minutes): 70 <Lavelle Horne - Last Filed: 09/19/21 01:41> - Plan Patient seen and examined on rounds this morning, CT with concern for pneumonia/pneumonitis. Patient reportedly had some emesis while sleeping in the ED, concern for possible aspiration. Patient has significant history of aspiration and does not seem to follow any dietary restrictions Discussed with the patient likely temporary need to be n.p.o., and to continue with PEG tube feeds only at this time. Patient became very agitated, started yelling profanities, and refused any further care. He signed the AMA paperwork and left the hospital. I spent a significant amount of time in the patient's room trying to convince him to stay due to the low potassium and the possible pneumonitis/pneumonia. It was explained to him that he would have a high risk of cardiac event/possibly even if leaving early from this hospitalization. He expressed understanding and that he was still not going to stay. Patient left. <Mitch Wang Last Filed: 09/19/21 17:16>
--- NOTE | 2021-09-19 03:27 | RAD REPORT ---
EXAM DESCRIPTION: CT - Abdomen Pelvis W Contrast - 09/19/2021 12:45 am CLINICAL HISTORY: Abdominal pain COMPARISON: 2017 TECHNIQUE: Computed axial tomography of the abdomen pelvis was obtained. 100 cc Isovue-300 was admin istered intravenously. Oral contrast was not requested which limits evaluation of bowel. All CT scans are performed using dose optimization technique as appropriate and may include automated exposure control or mA/KV adjustment according to patient size. FINDINGS: Moderate ground-glass opacities within the left lung base. Mild opacities within the anter ior right lung base. Percutaneous catheter within the stomach. Moderate hiatal hernia The liver, spleen, pancreas, adrenal and kidneys appear unremarkable. Small amount of thrombus is present within the superior mesenteric vein. Large right inguinal hernia contains large and small bowel. It also contains fluid. No evidence of diverticulitis. A small amount of ascites IMPRESSION: Moderate left and mild right basilar lung opacities may indicate pneumonia or aspiration pneumonitis. Large right inguinal hernia containing bowel.
--- NOTE | 2021-09-19 04:33 | ER ---
Nurse's Notes [facility] Name: Tahir Ag Jr Age: 36 yrs Sex: Male : 1985 Arrival Date: 09/18/2021 Time: 15:26 Bed 26 [facility] MD: Diagnosis: Hypokalemia;Fall;Pneumonia Presentation: 09/18 14:30 Chief complaint: Patient states: Bilateral knee pain after falling from a standing ss position today. Pt also c/o R inguinal hernia pain x 2 months. Coronavirus screen: Client denies travel out of the [place] in the last 14 days. Ebola Screen: Patient denies exposure to infectious person. Patient denies travel to an Ebola-affected area in the 21 days before illness onset. Initial Sepsis Screen: Does the patient meet any 2 criteria? No. Patient's initial sepsis screen is negative. Does the patient have a suspected source of infection? No. Patient's initial sepsis screen is negative. Risk Assessment: Do you want to hurt yourself or someone else? Patient reports no desire to harm self or others. Onset of symptoms was September 18, 2021. 14:30 Acuity: MARTINA 4 14:30 Method Of Arrival: EMS: [facility] Historical: - Allergies: 15:28 No Known Allergies; ss - PMHx: 15:28 Bipolar disorder; Diabetes - NIDDM; Hernia; Hypertension; Schizophrenia; ss - Immunization history:: Client reports having NOT received the Covid vaccine. - Social history:: Smoking status: Patient reports the use of cigarette tobacco products, smokes one pack cigarettes per day. Patient/guardian denies using street drugs. Screenin:30 Abuse screen: Denies threats or abuse. Nutritional screening: pt is emaciated. bb Tuberculosis screening: No symptoms or risk factors identified. Fall Risk Fall in past 12 months (25 points). No secondary diagnosis (0 pts). IV access (20 points). Ambulatory Aid- None/Bed Rest/Nurse Assist (0 pts). Mental Status- Oriented to own ability (0 pts). Total Durham Fall Scale indicates High Risk Score (45 or more points). As available patient and family educated on Fall Prevention Program and Strategies. Assessment: 19:07 Reassessment: Called from lobby, no answer. ss 19:39 Reassessment: Pt back from outside. No sitting in ER lobby. 21:30 General: Appears in no apparent distress. emaciated, Behavior is calm, cooperative. bb Pain: Complains of pain in left lower quadrant and right lower quadrant. Neuro: Level of Consciousness is awake, alert, obeys commands, Oriented to person, place, time, situation. Cardiovascular: Capillary refill < 3 seconds Patient's skin is warm and dry. Respiratory: Airway Respiratory effort is even, unlabored, Respiratory pattern is regular. GI: Reports lower abdominal pain. Derm: Skin is dry, Skin is normal, Skin temperature is warm. Musculoskeletal: Circulation, motion, and sensation intact. Vital Signs: 14:30 BP 118 / 74; Pulse 97; Resp 14; Temp 97.6(TE); Pulse Ox 99% on R/A; Weight 43.09 kg; ss Height 5 ft. 5 in. (165.10 cm); Pain 10/; 21:34 BP 122 / 84; Pulse 72; Resp 16; Temp 97.0(TE); Pulse Ox 100% on R/A; lt3 09/19 05:24 BP 117 / 64; Pulse 55; Resp 18; Temp 98.2(O); Pulse Ox 100% on R/A; cc4 09/18 14:30 Body Mass Index 15.81 (43.09 kg, 165.10 cm) ED Course: 09/18 14:30 Arm band placed on right wrist. 15:26 Patient arrived in ED. as 17:30 Triage completed. ss 18:44 XRAY Knee LEFT 3 view In Process Unspecified. EDMS 18:44 XRAY Knee RIGHT 3 view In Process Unspecified. EDMS 21:14 Alan Nguyễn MD is Attending Physician. 7 21:30 Patient has correct armband on for positive identification. Bed in low position. Call bb light in reach. front desk monitor on. Pulse ox on. NIBP on. Warm blanket given. 21:43 Missed attempt(s): 20 gauge in right antecubital area. Bleeding controlled, band aid bb applied, catheter tip intact. 21:56 Trupti Juarez, MARTINA is Primary Nurse. bb 22:45 Initial lab(s) drawn, by me, sent to lab. T\T\S collected, blood band applied to patient. bb Inserted saline lock: 20 gauge in right upper arm, using aseptic technique. Blood collected. 23:51 CT Head Brain wo Cont In Process Unspecified. EDMS 09/19 00:45 Abdomen In Process Unspecified. EDMS 04:31 Mitch Wang MD is Hospitalizing Provider. [facility] Administered Medications: 09/18 22:27 Drug: Zofran (Ondansetron) 4 mg Route: IVP; Site: left antecubital; mr2 22:28 Drug: NS 0.9% 500 ml Route: IV; Rate: bolus; Site: left antecubital; mr2 09/19 07:09 Follow up: IV Status: Completed infusion; IV Intake: 500ml sl2 09/18 22:28 Drug: morphine 2 mg Route: IVP; Site: left antecubital; mr2 23:40 Drug: morphine 2 mg Route: IVP; Site: right antecubital; mr2 09/19 00:29 Drug: Potassium Chloride 20 mEq Route: IV; Rate: per protocol; Site: left antecubital; mr2 07:08 Follow up: IV Status: Completed infusion; IV Intake: 100ml sl2 05:05 Drug: Rocephin (cefTRIAXone) 1 grams Route: IV; Rate: per protocol; Site: left forearm; cc4 07:08 Follow up: Response: No adverse reaction sl2 07:08 Follow up: IV Status: Completed infusion; IV Intake: 10ml sl2 05:10 Drug: Zithromax (azithromycin) 500 mg Route: IVPB; Infused Over: 1 hrs; Site: left cc4 forearm; 07:07 Follow up: IV Status: Completed infusion; IV Intake: 500ml sl2 Intake: 07:07 IV: 500ml; Total: 500ml. sl2 07:08 IV: 10ml; Total: 510ml. sl2 07:08 IV: 100ml; Total: 610ml. sl2 07:09 IV: 500ml; Total: 1110ml. sl2 Outcome: 04:32 Decision to Hospitalize by Provider. [facility] 08:13 Patient left the ED. iw Signatures: Dispatcher [employer] EDMS Renee Bell Brenda, RN RN bb Williams, Irene, RN RN Taryn Gil RN RN ss Holmes, Maurice, MD MD [facility] Jayleen Lisa RN RN [facility] Merritt Tracy RN RN mr2 Lisa Tam RN RN sl2 Lucille Kirk 3 Corrections: (The following items were deleted from the chart) 09/18 17:30 14:30 Method Of Arrival: Ambulatory ss 09/19 05:36 02:00 BP 117 / 64; Pulse 55bpm; Resp 18bpm; Pulse Ox 100% RA; Temp 98.2F Oral; cc4 cc4
--- NOTE | 2021-09-19 04:33 | EDPHYS ---
Physician Documentation [facility] Name: Tahir Ag Jr Age: 36 yrs Sex: Male : 1985 Arrival Date: 09/18/2021 Time: 15: Bed 26 Private MD: ED Physician Alan Nguyễn HPI: 09/18 21:35 This 36 yrs old Black Male presents to ER via EMS with complaints of Fall Injury, mh7 Hernia. 21:35 Details of fall: The patient fell from an upright position, while walking, and struck a mh7 concrete surface. Onset: The symptoms/episode began/occurred today. Associated injuries: The patient sustained injury to the head, abrasion, injury to the abdomen, specifically the right lower quadrant and left lower quadrant, tenderness. Severity of symptoms: At their worst the symptoms were moderate, earlier today, in the emergency department the symptoms are unchanged. 21:35 Associated injuries: The patient sustained Bilateral knees, abrasion, contusion. [facility] Historical: - Allergies: 15:28 No Known Allergies; ss - PMHx: 15:28 Bipolar disorder; Diabetes - NIDDM; Hernia; Hypertension; Schizophrenia; ss - Immunization history:: Client reports having NOT received the Covid vaccine. - Social history:: Smoking status: Patient reports the use of cigarette tobacco products, smokes one pack cigarettes per day. Patient/guardian denies using street drugs. ROS: 21:35 Constitutional: Negative for fever, chills, and weight loss, Eyes: Negative for injury, mh7 pain, redness, and discharge, ENT: Negative for injury, pain, and discharge, Neck: Negative for injury, pain, and swelling, Cardiovascular: Negative for chest pain, palpitations, and edema, Respiratory: Negative for shortness of breath, cough, wheezing, and pleuritic chest pain, Back: Negative for injury and pain, : Negative for injury, bleeding, discharge, and swelling. 21:35 Skin: Negative for injury, rash, and discoloration, Neuro: Negative for headache, mh7 weakness, numbness, tingling, and seizure, Psych: Negative for depression, anxiety, suicide ideation, homicidal ideation, and hallucinations, Allergy/Immunology: Negative for hives, rash, and allergies, Endocrine: Negative for neck swelling, polydipsia, polyuria, polyphagia, and marked weight changes, Hematologic/Lymphatic: Negative for swollen nodes, abnormal bleeding, and unusual bruising. Exam: 21:35 Constitutional: This is a well developed, well nourished patient who is awake, alert, mh7 and in no acute distress. Head/Face: Normocephalic, atraumatic. Eyes: Pupils equal round and reactive to light, extra-ocular motions intact. Lids and lashes normal. Conjunctiva and sclera are non-icteric and not injected. Cornea within normal limits. Periorbital areas with no swelling, redness, or edema. Neck: Trachea midline, no thyromegaly or masses palpated, and no cervical lymphadenopathy. Supple, full range of motion without nuchal rigidity, or vertebral point tenderness. No Meningismus. Chest/axilla: Normal chest wall appearance and motion. Nontender with no deformity. No lesions are appreciated. Cardiovascular: Regular rate and rhythm with a normal S1 and S2. No gallops, murmurs, or rubs. Normal PMI, no JVD. No pulse deficits. Respiratory: Lungs have equal breath sounds bilaterally, clear to auscultation and percussion. No rales, rhonchi or wheezes noted. No increased work of breathing, no retractions or nasal flaring. Back: No spinal tenderness. No costovertebral tenderness. Full range of motion. 21:35 Neuro: Awake and alert, GCS 15, oriented to person, place, time, and situation. Cranial nerves II-XII grossly intact. Motor strength 5/5 in all extremities. Sensory grossly intact. Cerebellar exam normal. Normal gait. Psych: Awake, alert, with orientation to person, place and time. Behavior, mood, and affect are within normal limits. 21:35 Musculoskeletal/extremity: Extremities: noted in the Bilateral knees: abrasion, ROM: intact in all extremities, Circulation is intact in all extremities. Sensation intact. Compartment Syndrome exam of affected extremity: is normal. no numbness, no tingling, no sensation deficit, no palor, no weak pulses, Joints: All joints appear normal with full range of motion. Weight bearing: able to fully bear weight, without difficulty, Tendon exam: specific tendon testing normal through active and passive range of motion 21:35 Skin: injury, abrasion(s), very small abrasion noted, of the Bilateral knees. Vital Signs: 14:30 BP 118 / 74; Pulse 97; Resp 14; Temp 97.6(TE); Pulse Ox 99% on R/A; Weight 43.09 kg; ss Height 5 ft. 5 in. (165.10 cm); Pain 10/10; 21:34 BP 122 / 84; Pulse 72; Resp 16; Temp 97.0(TE); Pulse Ox 100% on R/A; lt3 09/19 05:24 BP 117 / 64; Pulse 55; Resp 18; Temp 98.2(O); Pulse Ox 100% on R/A; cc4 09/18 14:30 Body Mass Index 15.81 (43.09 kg, 165.10 cm) ss MDM: 04:30 Differential diagnosis: abrasion, closed head injury, contusion, fracture. Data [facility] reviewed: vital signs, nurses notes, lab test result(s), CBC, electrolytes, radiologic studies, CT scan, plain films. Data interpreted: Pulse oximetry: on room air is 100 %. Interpretation: normal. Counseling: I had a detailed discussion with the patient and/or guardian regarding: the historical points, exam findings, and any diagnostic results supporting the discharge/admit diagnosis, lab results, radiology results, the need for further work-up and treatment in the hospital. Response to treatment: the patient's symptoms have markedly improved after treatment. 04:32 Patient medically screened. [facility] 09/18 21:24 Order name: Basic Metabolic Panel; Complete Time: 23:31 [facility] 09/18 21:24 Order name: CBC with Diff; Complete Time: 23:31 [facility] 09/18 21:24 Order name: Type And Screen; Complete Time: 23:46 [facility] 09/18 21:24 Order name: LFT's; Complete Time: 23:31 [facility] 09/18 21:24 Order name: Protime (+inr); Complete Time: 23:31 [facility] 09/18 21:24 Order name: Ptt, Activated; Complete Time: 23:31 [facility] 09/18 17:31 Order name: XRAY Knee LEFT 3 view; Complete Time: 21:15 09/18 17:31 Order name: XRAY Knee RIGHT 3 view; Complete Time: 21:15 09/18 21:27 Order name: CT Head Brain wo Cont [facility] 09/19 00:30 Order name: Abdomen ; Complete Time: 04:05 [facility] 09/18 21:24 Order name: Labs collected and sent; Complete Time: 22:48 7 09/18 23:33 Order name: EKG; Complete Time: 23:33 7 09/18 23:33 Order name: EKG - Nurse/Tech; Complete Time: 00:57 7 Administered Medications: 09/18 22:27 Drug: Zofran (Ondansetron) 4 mg Route: IVP; Site: left antecubital; mr2 22:28 Drug: NS 0.9% 500 ml Route: IV; Rate: bolus; Site: left antecubital; mr2 09/19 07:09 Follow up: IV Status: Completed infusion; IV Intake: 500ml sl2 09/18 22:28 Drug: morphine 2 mg Route: IVP; Site: left antecubital; mr2 23:40 Drug: morphine 2 mg Route: IVP; Site: right antecubital; mr2 09/19 00:29 Drug: Potassium Chloride 20 mEq Route: IV; Rate: per protocol; Site: left antecubital; 2 07:08 Follow up: IV Status: Completed infusion; IV Intake: 100ml sl2 05:05 Drug: Rocephin (cefTRIAXone) 1 grams Route: IV; Rate: per protocol; Site: left forearm; 4 07:08 Follow up: Response: No adverse reaction 2 07:08 Follow up: IV Status: Completed infusion; IV Intake: 10ml sl2 05:10 Drug: Zithromax (azithromycin) 500 mg Route: IVPB; Infused Over: 1 hrs; Site: left cc4 forearm; 07:07 Follow up: IV Status: Completed infusion; IV Intake: 500ml sl2 Disposition Summary: 09/19/21 04:32 Hospitalization Ordered Hospitalization Status: Inpatient Admission mh7 Provider: Mitch Wang Condition: Stable 7 Problem: an acute exacerbation mh7 Symptoms: have improved 7 Bed/Room Type: Standard [facility] Location: [facility] ER HOLD(09/19/21 05:52) cg Room Assignment: ERHOLD-(09/19/21 05:52) cg Diagnosis - Hypokalemia mh7 - Fall mh7 - Pneumonia mh7 Forms: - Medication Reconciliation Form mh7 - SBAR form 7 Signatures: Dispatcher [employer] EDMS Taryn Gil, RN RN ss Antionette Perez RN RN Alan Nguyễn MD MD 7 Lavelle Horne PA PA ej Cooper, Christie, RN RN cc4 Merritt Tracy RN RN mr2 Anel, Lisa MACK sl2 Corrections: (The following items were deleted from the chart) 00:12 09/18 21:27 Abdomen Pelvis W Con+CT.RAD.BRZ ordered. EDMS EDMS 09/19 00:31 00:12 Abdomen ordered. [facility] EDMS 05:52 04:32 Telemetry/MedSurg (Inpatient) [facility] cg 05:52 04:32 [facility]
[2021-09-19] MEDS ORDERED: CEFTRIAXONE 1000 MG/VIAL ONE (05:05)
[2021-09-19] MEDS ORDERED: AZITHROMYCIN 500 MG INJ IVPB ONE (05:05)
[2021-09-19] MEDS ORDERED: NA CHLORIDE 0.9% 250 ML ONE (05:06)
[2021-09-19] MEDS ORDERED: D5W 1,000 ML IV SCH (07:42)
[2021-09-19] MEDS ORDERED: ALBUTEROL 2.5 MG/3 ML NEB SOL NEB PRN (07:42)
[2021-09-19] MEDS ORDERED: ONDANSETRON 4 MG/2 ML VIAL IV PRN (07:42)
[2021-09-19] MEDS ORDERED: HYDROCODONE/APAP 7.5/325 MG TAB PO PRN (07:42)
[2021-09-19] MEDS ORDERED: LACTULOSE 20 GM/30 ML UCUP PO PRN (07:42)
[2021-09-19] MEDS ORDERED: ACETAMINOPHEN 500 MG TAB PO PRN (07:42)
[2021-09-19] MEDS ORDERED: POTASSIUM 25 MEQ EFFERV TAB PO ONE (08:00)
[2021-09-19] MEDS ORDERED: INSULIN -REGULAR HUMAN 50 UNIT/0.5 ML ML SQ SCH (08:00)
[2021-09-19] MEDS ORDERED: KCL 20 MEQ/100 mL IVPB 20 MEQ/100 ML BAG IV SCH (08:00)
[2021-09-19 08:18] VITALS: O2SAT 100
--- NOTE | 2021-09-19 08:19 | RAD REPORT ---
EXAM DESCRIPTION: CT - Head Brain Wo Cont - 09/19/2021 6:28 am CLINICAL HISTORY: TRAUMA COMPARISON: Head Brain Wo Cont dated 07/30/2021; Head Brain Wo Cont dated 05/19/2018; Abdomen Pelvis W Contrast dated 09/18/2021 TECHNIQUE: All CT scans are performed using dose optimization technique as appropriate and may inclu de automated exposure control or mA/KV adjustment according to patient size. FINDINGS: No intracranial hemorrhage, hydrocephalus or extra-axial fluid collection.No areas of brai n edema or evidence of midline shift. The paranasal sinuses and mastoids are clear. The calvarium is intact. IMPRESSION: No acute intracranial abnormality.
[2021-09-19 08:20] VITALS: BP 117/64; TEMP 98.2
[2021-09-19] MEDS ORDERED: VENLAFAXINE HCL 37.5 MG TAB PO SCH (09:00)
[2021-09-19] MEDS ORDERED: MIDODRINE HCL 5 MG TABLET PO SCH (09:00)
[2021-09-19] MEDS ORDERED: POTASSIUM 25 MEQ EFFERV TAB PO SCH (09:00)
[2021-09-19] MEDS ORDERED: JEVITY 1.2 CAL LIQUID 1,000 ML BOT FT SCH (09:00)
[2021-09-19] MEDS ORDERED: RISPERIDONE 1 MG TABLET FT SCH (09:00)
[2021-09-19] MEDS ORDERED: GABAPENTIN 100 MG CAP FT SCH (09:00)
[2021-09-19] MEDS ORDERED: [UNRECOGNIZED DRUG - OTHER] PO SCH (09:00)
[2021-09-19] MEDS ORDERED: MIRTAZAPINE 15 MG TAB PO SCH (21:00)
== END 2021-09-19 08:00 | disposition left against medical advice (07) ==
LOC: ER 15:25 → ERHOLD 09-19 00:54
PROVIDERS: ADMIT Hospitalist; ATTEND Hospitalist
DX: E87.6 Hypokalemia (principal); E87.0 Hyperosmolality and hypernatremia; K22.0 Achalasia of cardia; I10 Essential (primary) hypertension; F31.9 Bipolar disorder, unspecified; E46 Unspecified protein-calorie malnutrition; Z68.41 Body mass index [BMI] 40.0-44.9, adult; E11.9 Type 2 diabetes mellitus without complications; Z53.29 Procedure and treatment not carried out because of patient's decision for other reasons
CPT/HCPCS: 93005; 85025; 80048; 36415; 86900; 86850; 85610; 86901; 80076; 85730; 70450; 74177; 73562 ×2; 99284; Q9967; J0456; J2270; J7050; J7040 ×2; J2405 ×2; G0378 ×2

== ENCOUNTER 2021-10-12 08:56 | Emergency (ER) | payer OTHER ==
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
[2021-10-12] MEDS ORDERED: NA CHLORIDE 0.9% 1,000 ML ONE (09:17)
[2021-10-12 09:49] LABS: Absolute Lymphocytes (CBC) 1.1 K/uL (0.7-4.9); Basophils % 0.3 % (0-1.3); Hematocrit 37.4 % (39.6-49.0); Lymphocytes % 17.6 % (15.3-44.8); MPV 8.8 fL (7.6-11.3)
[2021-10-12 10:11] LABS: ALT/SGPT 16 U/L (12-78); AST/SGOT 9 U/L (15-37); Albumin 2.3 g/dL (3.4-5.0); Alkaline Phosphatase 83 U/L (45-117); BUN Blood Urea Nitrogen 6 mg/dL (7-18); Bicarbonate 28 mmol/L (21-32); Bilirubin Direct 0.1 mg/dL (0-0.2); Bilirubin Total 0.4 mg/dL (0.2-1.0); Glucose Level 79 mg/dL (74-106); Lipase 70 U/L (73-393); Protein, Total 8.6 g/dL (6.4-8.2); Sodium Level 145 mmol/L (136-145)
[2021-10-12 10:14] LABS: Potassium 2.8 mmol/L (3.5-5.1)
[2021-10-12] MEDS ORDERED: ONDANSETRON 4 MG/2 ML VIAL ONE (10:26)
[2021-10-12] MEDS ORDERED: MORPHINE 2 MG/ML SYR ONE (10:26)
[2021-10-12] MEDS ORDERED: NS KCL 20MEQ 1,000 ML IV ONE (10:27)
[2021-10-12] MEDS ORDERED: POTASSIUM 25 MEQ EFFERV TAB ONE (10:27)
--- NOTE | 2021-10-12 10:30 | RAD REPORT ---
EXAM DESCRIPTION: CTAbdomen Pelvis W Contrast - 10/12/2021 10:17 am CLINICAL HISTORY: ABD PAIN COMPARISON: Abdomen Pelvis W Contrast dated 09/18/2021; Abdomen Pelvis W Contrast dated 09/08/20 17 TECHNIQUE: CT of the abdomen and pelvis was performed. All CT scans are performed using dose optimization technique as appropriate and may include automated exposure control or mA/KV adjustment according to patient size. FINDINGS: Lower chest: There is moderate fluid in the distal esophagus. Faint ground-glass opacities are present left lung base. Liver: Focal fat along the falciform ligament. Hepatic steatosis. Biliary: No biliary ductal dilatation. Stomach: Gastrostomy tube. Duodenum: No significant focal abnormality. Pancreas: No significant abnormality. Spleen: No significant abnormality. Adrenal: No suspicious lesions. Kidney/ureter: No hydronephrosis. No renal calculi. Retroperitoneum: No retroperitoneal adenopathy. Vascular: No aneurysm. Bowel: Moderate formed stool is present within the colon.. Peritoneum: There is free fluid in the pelvis. Large bowel containing right inguinal hernia. Bladder: Grossly unremarkable. Reproductive: No adnexal masses. Bones: No acute fracture. Other: n/a IMPRESSION: No definite acute intra-abdominal abnormality. Improved aeration of the lung bases, othe rwise no significant change compared with 09/18/2021. Again noted is a fluid-filled distal esophagus which may represent gastroesophageal reflux.
--- NOTE | 2021-10-12 11:51 | ER ---
Nurse's Notes [facility] Name: Tahir Ag Jr Age: 36 yrs Sex: Male : 1985 Arrival Date: 10/12/2021 Time: 08:58 Bed 13 Private MD: Diagnosis: Gastro-esophageal reflux disease with esophagitis;Unilateral inguinal hernia, without obstruction or gangrene, recurrent-reduced;Hypokalemia Presentation: 10/12 09:00 Chief complaint: EMS states: Toned out for lower abdominal and back pain. Coronavirus ll3 screen: At this time, the client does not indicate any symptoms associated with coronavirus-19. Ebola Screen: No symptoms or risks identified at this time. Initial Sepsis Screen: Does the patient meet any 2 criteria? No. Patient's initial sepsis screen is negative. Does the patient have a suspected source of infection? No. Patient's initial sepsis screen is negative. Risk Assessment: Do you want to hurt yourself or someone else? Patient reports no desire to harm self or others. Onset of symptoms is unknown. Care prior to arrival: None. Transition of care: patient was not received from another setting of care. 09:00 Method Of Arrival: EMS: [facility] ll3 09:00 Acuity: MARTINA 3 ll3 Triage Assessment: 09:04 General: Appears in no apparent distress. uncomfortable, unkempt, Behavior is calm, ll3 cooperative. Pain: Complains of pain in right lower quadrant and left lower quadrant Pain radiates to left low back and right low back Pain currently is 10 out of 10 on a pain scale. Pain began Last night Is continuous. Neuro: Level of Consciousness is awake, alert, obeys commands, Oriented to person, place, time, situation, Gait is steady, Speech is normal, Facial symmetry appears normal. Cardiovascular: Patient's skin is warm and dry. Respiratory: Airway is patent Respiratory effort is even, unlabored, Respiratory pattern is regular, symmetrical. GI: Abdomen is flat, non-distended, PEG tube in place, clamped. Site clean. Bowel sounds present X 4 quads. Reports lower abdominal pain. Derm: Skin is pink, warm \T\ dry. Historical: - PMHx: 09:04 Schizophrenia; Hypertension; Hernia; Bipolar disorder; ll3 - Immunization history:: Client reports receiving the 1st dose of the Covid vaccine. - Social history:: Smoking status: Patient reports the use of cigarette tobacco products, smokes one pack cigarettes per day. - Family history:: pertinent for. Screenin:08 Abuse screen: Denies threats or abuse. Nutritional screening: No deficits noted. ll3 Tuberculosis screening: No symptoms or risk factors identified. Fall Risk. Assessment: 09:08 General: See triage assessment. GI: Abd is soft and non tender X 4 quads. ll3 10:00 Reassessment: Patient appears in no apparent distress at this time. No changes from ll3 previously documented assessment. Patient and/or family updated on plan of care and expected duration. Pain level reassessed. Patient is alert, oriented x 3, equal unlabored respirations, skin warm/dry/pink. 11:05 Reassessment: Patient appears in no apparent distress at this time. No changes from ll3 previously documented assessment. Patient and/or family updated on plan of care and expected duration. Pain level reassessed. Patient is alert, oriented x 3, equal unlabored respirations, skin warm/dry/pink. 12:00 Reassessment: No changes from previously documented assessment. Patient and/or family ll1 updated on plan of care and expected duration. Pain level reassessed. Patient is alert, oriented x 3, equal unlabored respirations, skin warm/dry/pink. 12:45 Reassessment: No changes from previously documented assessment. Patient and/or family ll1 updated on plan of care and expected duration. Pain level reassessed. Patient is alert, oriented x 3, equal unlabored respirations, skin warm/dry/pink. Patient states feeling better. no N/V after PO challenge. Vital Signs: 09:00 BP 108 / 78; Pulse 84; Resp 15; Temp 97.9; Pulse Ox 100% on R/A; Weight 45.36 kg; ll3 Height 5 ft. 5 in. (165.10 cm); Pain 10/10; 11:40 BP 108 / 82; Pulse 63; Resp 15; Pulse Ox 100% ; ll1 12:44 BP 111 / 81; Pulse 60; Resp 16; Pulse Ox 100% ; ll1 09:00 Body Mass Index 16.64 (45.36 kg, 165.10 cm) ll3 ED Course: 08:58 Patient arrived in ED. ll1 08:59 Keshawn Fish MD is Attending Physician. daniel 09:00 Hung Mclean, MARTINA is Primary Nurse. ll3 09:04 Triage completed. ll3 09:04 Arm band placed on. ll3 09:08 Patient has correct armband on for positive identification. Placed in gown. Bed in low ll3 position. Call light in reach. Side rails up X 1. 09:35 Missed attempt(s): 22 gauge in right antecubital area. Bleeding controlled, band aid ll1 applied, catheter tip intact. 09:38 Inserted saline lock: 22 gauge in right upper arm, using aseptic technique. Blood ll1 collected. 10:15 CT Abd/Pelvis - IV Contrast Only In Process Unspecified. EDMS 10:59 EKG done, by ED staff, reviewed by Keshawn Fish MD. mb7 11:48 Julio César Nam MD is Referral Physician. daniel 11:48 Gerald Paniagua MD is Referral Physician. daniel 12:45 No provider procedures requiring assistance completed. IV discontinued, intact, ll1 bleeding controlled, Pressure dressing applied, site infiltrated, swelling noted. IV DC'd, catheter intact. Small pressure dressing to RUE. Tolerated well. Administered Medications: 09:44 Drug: NS 0.9% 1000 ml Route: IV; Rate: 1 bolus; Site: right forearm; ll3 12:41 Follow up: Response: No adverse reaction; IV Status: Completed infusion; IV Intake: ll1 300ml 10:49 Drug: Potassium Effervescent Tablet 50 mEq Route: PO; ll3 11:58 Follow up: Response: No adverse reaction ll1 10:49 Drug: morphine 2 mg Route: IVP; Site: right forearm; ll3 11:58 Follow up: Response: No adverse reaction ll1 10:49 Drug: Zofran (Ondansetron) 4 mg Route: IVP; Site: right forearm; ll3 11:58 Follow up: Response: No adverse reaction ll1 11:04 Drug: NS 0.9% with KCl 20 mEq/L 1000 ml Route: IV; Rate: 999 ml/hr; Site: right forearm;ll3 12:41 Follow up: Response: No adverse reaction; IV Status: IV infiltrated; IV Intake: 800ml ll1 Intake: 12:41 IV: 800ml; Total: 800ml. ll1 12:41 IV: 300ml; Total: 1100ml. [facility] Outcome: 11:50 Discharge ordered by MD. sanchez 12:46 Discharged to [facility] 12:46 Condition: stable 12:46 Discharge instructions given to patient, Instructed on discharge instructions, follow up and referral plans. medication usage, Demonstrated understanding of instructions, follow-up care, medications, Prescriptions given X 3. 12:46 Patient left the ED. [facility] Signatures: Dispatcher [employer] EDNV Keshawn Fish MD MD cha Lewis, Lynsay RN RN ll1 Hung Mclean RN RN ll3 Anna Benson 7
--- NOTE | 2021-10-12 11:51 | EDPHYS ---
Physician Documentation [facility] Name: Tahir Ag Jr Age: 36 yrs Sex: Male : 1985 Arrival Date: 10/12/2021 Time: 08:58 Bed 13 Private MD: ED Physician Keshawn Fish HPI: 10/12 10:25 This 36 yrs old Black Male presents to ER via EMS with complaints of Abdominal Pain. daniel 10:25 The patient presents with abdominal pain right lower quadrant. Onset: The daniel symptoms/episode began/occurred 3 day(s) ago. The patient presents with scrotal pain, of the right side. Onset: The symptoms/episode began/occurred 2 day(s) ago. Modifying factors: The symptoms are alleviated by nothing, the symptoms are aggravated by movement, pressure. The symptoms radiate to Associated signs and symptoms: The patient has no apparent associated signs or symptoms. Associated signs and symptoms: Pertinent positives:. Severity of pain: At its worst the pain was moderate in the emergency department the pain is unchanged. Historical: - PMHx: 09:04 Schizophrenia; Hypertension; Hernia; Bipolar disorder; ll3 - Immunization history:: Client reports receiving the 1st dose of the Covid vaccine. - Social history:: Smoking status: Patient reports the use of cigarette tobacco products, smokes one pack cigarettes per day. - Family history:: pertinent for. ROS: 10:25 Constitutional: Negative for fever, chills, and weight loss, Eyes: Negative for injury, daniel pain, redness, and discharge, ENT: Negative for injury, pain, and discharge, Neck: Negative for injury, pain, and swelling, Cardiovascular: Negative for chest pain, palpitations, and edema, Respiratory: Negative for shortness of breath, cough, wheezing, and pleuritic chest pain, Back: Negative for injury and pain, MS/Extremity: Negative for injury and deformity, Skin: Negative for injury, rash, and discoloration, Neuro: Negative for headache, weakness, numbness, tingling, and seizure, Psych: Negative for depression, anxiety, suicide ideation, homicidal ideation, and hallucinations, Allergy/Immunology: Negative for hives, rash, and allergies, Endocrine: Negative for neck swelling, polydipsia, polyuria, polyphagia, and marked weight changes, Hematologic/Lymphatic: Negative for swollen nodes, abnormal bleeding, and unusual bruising. 10:25 Abdomen/GI: Positive for abdominal pain, abdominal cramps, of the right lower quadrant. 10:25 : Positive for testicular pain of the right lower quadrant. Exam: 10:25 Constitutional: This is a well developed, well nourished patient who is awake, alert, daniel and in no acute distress. Head/Face: Normocephalic, atraumatic. Eyes: Pupils equal round and reactive to light, extra-ocular motions intact. Lids and lashes normal. Conjunctiva and sclera are non-icteric and not injected. Cornea within normal limits. Periorbital areas with no swelling, redness, or edema. ENT: Nares patent. No nasal discharge, no septal abnormalities noted. Tympanic membranes are normal and external auditory canals are clear. Oropharynx with no redness, swelling, or masses, exudates, or evidence of obstruction, uvula midline. Mucous membranes moist. Neck: Trachea midline, no thyromegaly or masses palpated, and no cervical lymphadenopathy. Supple, full range of motion without nuchal rigidity, or vertebral point tenderness. No Meningismus. Chest/axilla: Normal chest wall appearance and motion. Nontender with no deformity. No lesions are appreciated. Cardiovascular: Regular rate and rhythm with a normal S1 and S2. No gallops, murmurs, or rubs. Normal PMI, no JVD. No pulse deficits. Respiratory: Lungs have equal breath sounds bilaterally, clear to auscultation and percussion. No rales, rhonchi or wheezes noted. No increased work of breathing, no retractions or nasal flaring. Back: No spinal tenderness. No costovertebral tenderness. Full range of motion. Skin: Warm, dry with normal turgor. Normal color with no rashes, no lesions, and no evidence of cellulitis. MS/ Extremity: Pulses equal, no cyanosis. Neurovascular intact. Full, normal range of motion. Neuro: Awake and alert, GCS 15, oriented to person, place, time, and situation. Cranial nerves II-XII grossly intact. Motor strength 5/5 in all extremities. Sensory grossly intact. Cerebellar exam normal. Normal gait. Psych: Awake, alert, with orientation to person, place and time. Behavior, mood, and affect are within normal limits. 10:25 Abdomen/GI: Inspection: abdomen appears normal, Bowel sounds: normal, Palpation: moderate abdominal tenderness, in the right lower quadrant, Liver: no appreciated palpable abnormalities, Hernia: not appreciated. 12:29 ECG was reviewed by the Attending Physician. [facility] Vital Signs: 09:00 BP 108 / 78; Pulse 84; Resp 15; Temp 97.9; Pulse Ox 100% on R/A; Weight 45.36 kg; ll3 Height 5 ft. 5 in. (165.10 cm); Pain 10/10; 11:40 BP 108 / 82; Pulse 63; Resp 15; Pulse Ox 100% ; ll1 12:44 BP 111 / 81; Pulse 60; Resp 16; Pulse Ox 100% ; ll1 09:00 Body Mass Index 16.64 (45.36 kg, 165.10 cm) ll3 MDM: 08:59 Patient medically screened. daniel 10:31 Differential diagnosis: UTI, bowel obstruction, non-specific abd pain, pancreatitis. daniel Data reviewed: vital signs, nurses notes, lab test result(s), CBC, electrolytes, hepatic panel, EKG, radiologic studies, CT scan. Data interpreted: potline monitor: rate is 84 beats/min, rhythm is regular, Pulse oximetry: on room air is 100 %. Test interpretation: by ED physician or midlevel provider: ECG. Counseling: I had a detailed discussion with the patient and/or guardian regarding: the historical points, exam findings, and any diagnostic results supporting the discharge/admit diagnosis, lab results, radiology results. 10/12 09:11 Order name: Basic Metabolic Panel; Complete Time: 10:20 [facility] 10/12 09:11 Order name: CBC with Diff; Complete Time: 10:04 [facility] 10/12 09:11 Order name: Hepatic Function; Complete Time: 10:20 [facility] 10/12 09:11 Order name: Lipase; Complete Time: 10:20 [facility] 10/12 09:11 Order name: CT Abd/Pelvis - IV Contrast Only; Complete Time: 11:10 [facility] 10/12 11:05 Order name: CREATININE WHOLE BLOOD; Complete Time: 11:10 [facility] 10/12 09:11 Order name: IV Saline Lock; Complete Time: 09:38 [facility] 10/12 09:11 Order name: Labs collected and sent; Complete Time: 09:38 [facility] 10/12 10:26 Order name: EKG - Nurse/Tech; Complete Time: 10:59 [facility] 10/12 11:10 Order name: PO challenge: juice; Complete Time: 11:58 daniel EC:29 Rate is 76 beats/min. Rhythm is regular. QRS [place] is Normal. [place] interval is normal. QRS daniel interval is normal. QT interval is normal. No Q waves. T waves are Normal. No ST changes noted. Clinical impression: NSR w/ Non-specific ST/T Changes and No evidence of ischemia. Interpreted by me. Reviewed by me. Administered Medications: 09:44 Drug: NS 0.9% 1000 ml Route: IV; Rate: 1 bolus; Site: right forearm; ll3 12:41 Follow up: Response: No adverse reaction; IV Status: Completed infusion; IV Intake: ll1 300ml 10:49 Drug: Potassium Effervescent Tablet 50 mEq Route: PO; ll3 11:58 Follow up: Response: No adverse reaction ll1 10:49 Drug: morphine 2 mg Route: IVP; Site: right forearm; ll3 11:58 Follow up: Response: No adverse reaction ll1 10:49 Drug: Zofran (Ondansetron) 4 mg Route: IVP; Site: right forearm; ll3 11:58 Follow up: Response: No adverse reaction ll1 11:04 Drug: NS 0.9% with KCl 20 mEq/L 1000 ml Route: IV; Rate: 999 ml/hr; Site: right forearm;ll3 12:41 Follow up: Response: No adverse reaction; IV Status: IV infiltrated; IV Intake: 800ml ll1 Disposition Summary: 10/12/21 11:50 Discharge Ordered Location: Home daniel Problem: new daniel Symptoms: have improved daniel Condition: Stable daniel Diagnosis - Gastro-esophageal reflux disease with esophagitis daniel - Unilateral inguinal hernia, without obstruction or gangrene, recurrent - reduced daniel - Hypokalemia daniel Followup: daniel - With: Private Physician - When: 2 - 3 days - Reason: Recheck today's complaints, Continuance of care, Re-evaluation by your physician Followup: daniel - With: Julio César Nam MD - When: 2 - 3 days - Reason: Recheck today's complaints, Re-evaluation by your physician Followup: daniel - With: Gerald Paniagua MD - When: 5 - 6 days - Reason: Recheck today's complaints, Re-evaluation by your physician Discharge Instructions: - Discharge Summary Sheet daniel - Food Choices for Gastroesophageal Reflux Disease, Adult daniel - Potassium Content of Foods daniel - Gastroesophageal Reflux Disease, Adult daniel - Hernia, Adult daniel - Inguinal Hernia, Adult, [id number] daniel - Gastroesophageal Reflux Disease, Adult, [id number] daniel - Hernia, Adult, [id number] daniel - Inguinal Hernia, Adult daniel - Hypokalemia daniel - Food Choices for Gastroesophageal Reflux Disease, Adult, [id number] [facility] Forms: - Medication Reconciliation Form [facility] - Thank You Letter [facility] - Antibiotic Education [facility] - Prescription Opioid Use [facility] Prescriptions: - ondansetron 4 mg Oral tablet,disintegrating - take 1 tablet by ORAL route every 8 hours for 7 days; 20 tablet; Refills: 0, [facility] Product Selection Permitted - Protonix 40 mg Oral Tablet - take 1 tablet by ORAL route once daily; 30 tablet; Refills: 0, Product [facility] Selection Permitted - Potassium Chloride 20 meq Oral Packet - take 1 packet by ORAL route once daily 1 packet in 6 (six) ounces of water or daniel juice; Take after meal; 10 packet; Refills: 0, Product Selection Permitted Signatures: Dispatcher [employer] Keshawn Silva MD MD cha Herrera, Deanna 3 Hung Mclean RN RN ll3 Macrina Connolly RN ll1
[2021-10-12 12:52] VITALS: TEMP 97.9; O2SAT 100
[2021-10-12 13:08] VITALS: BP 111/81
--- NOTE | 2021-10-13 07:37 | EKG ---
Test Date: 2021-10-12 Test Time: 10:48:58 Director Hardware: ZAHRA MEASUREMENT RESULTS: Intervals: Rate: 76 UT: 124 QRSD: 84 QT: 416 QTc: 468 [place]: P: 90 UT: 124 QRS: 87 T: 50 INTERPRETIVE STATEMENTS: Normal sinus rhythm Normal ECG Compared to ECG 09/19/2021 00:56:05 Sinus bradycardia no longer present Electronically Signed On 10-13-21 07:35:06 PHOTOGRAMMETRIC TECH by Grant Bill
== END 2021-10-12 12:46 | disposition home or self-care (01) ==
LOC: ER 08:56
DX: K21.00 Gastro-esophageal reflux disease with esophagitis, without bleeding (principal); K40.90 Unilateral inguinal hernia, without obstruction or gangrene, not specified as recurrent; E87.6 Hypokalemia; I10 Essential (primary) hypertension; F17.210 Nicotine dependence, cigarettes, uncomplicated
CPT/HCPCS: 96361; 93005; 85025; 80048; 36415; 82565; 80076; 83690; 74177; 96375; 96374; 99284; Q9967; J2270; J7030; J2405; J3480

== ENCOUNTER 2021-12-11 08:42 | Emergency (ER) | payer OTHER ==
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
[2021-12-11] MEDS ORDERED: ONDANSETRON 4 MG/2 ML VIAL ONE (08:53)
[2021-12-11] MEDS ORDERED: FENTANYL CITR 100 MCG/2 ML ONE (08:53)
[2021-12-11] MEDS ORDERED: NA CHLORIDE 0.9% 1,000 ML ONE (08:53)
[2021-12-11 08:56] LABS: Absolute Lymphocytes (CBC) 1.3 K/uL (0.7-4.9); Hematocrit 27.4 % (39.6-49.0); Lymphocytes % 15.4 % (15.3-44.8); MPV 8.2 fL (7.6-11.3); RBC Red Blood Cell Count 3.04 M/uL (4.33-5.43)
[2021-12-11 09:12] LABS: BUN Blood Urea Nitrogen 4 mg/dL (7-18); Bicarbonate 31 mmol/L (21-32); Glucose Level 87 mg/dL (74-106); Sodium Level 145 mmol/L (136-145)
[2021-12-11 09:16] LABS: Potassium 2.5 mmol/L (3.5-5.1)
--- NOTE | 2021-12-11 09:56 | EDPHYS ---
Physician Documentation [facility] Name: Tahir Ag Jr Age: 36 yrs Sex: Male : 1985 Arrival Date: 12/11/2021 Time: 08:44 Bed 5 Private MD: ED Physician Omari Wang HPI: 12/11 08:46 This 36 yrs old Black Male presents to ER via Unassigned with complaints of right rn groin/abd pain. 08:46 The patient presents with abdominal pain right lower quadrant, right groin. Onset: The rn symptoms/episode began/occurred at an unknown time. The symptoms do not radiate. Associated signs and symptoms: Pertinent positives: nausea, Pertinent negatives: blood in stools, diarrhea, fever. The symptoms are described as achy, crampy. Modifying factors: The symptoms are alleviated by nothing, the symptoms are aggravated by movement, pressure. Severity of pain: At its worst the pain was moderate in the emergency department the pain is unchanged. The patient has experienced similar episodes in the past, chronically. The patient has not recently seen a physician. Pt reports chronic right inguinal hernia, states hurts daily, sometimes goes in but tends to stay out. Reports has to come in about once a month for pain medication. No change in bowel movements. Reports nausea 2/2 pain. No fever. Pain only at the site of hernia but not higher in abdomen.. Historical: - Allergies: 08:48 No Known Allergies; jd3 - PMHx: 08:48 Bipolar disorder; Diabetes - NIDDM; Hernia; Hypertension; Schizophrenia; jd3 - Immunization history:: Adult Immunizations up to date. - Social history:: Smoking status: Patient reports the use of cigarette tobacco products. - Family history:: not pertinent. - Hospitalizations: : No recent hospitalization is reported. ROS: 08:46 Constitutional: Negative for fever, chills, and weight loss, Eyes: Negative for injury, rn pain, redness, and discharge, Neck: Negative for injury, pain, and swelling, Cardiovascular: Negative for chest pain, palpitations, and edema, Respiratory: Negative for shortness of breath, cough, wheezing, and pleuritic chest pain, Abdomen/GI: + right groin pain Back: Negative for injury and pain, : + right groin swelling that extends to scrotum MS/Extremity: Negative for injury and deformity, Skin: Negative for injury, rash, and discoloration, Neuro: Negative for headache, weakness, numbness, tingling, and seizure. Exam: 08:46 Constitutional: Thin cachectic male, moves from EMS stretcher to ER bed on his own. rn first assist: Regular rate and rhythm. No pulse deficits. Respiratory: No increased work of breathing, no retractions or nasal flaring. Abdomen/GI: soft, tender only right inguinal region, no skin changes, approx 8 in by 4 in right inguinal hernia Skin: Warm, dry MS/ Extremity: Pulses equal, no cyanosis. Neuro: Awake and alert, GCS 15 Vital Signs: 08:46 BP 95 / 72; Pulse 81; Resp 17 S; Temp 98.2(TE); Pulse Ox 100% on R/A; Weight 44 kg (R); jd3 Height 5 ft. 5 in. (165.10 cm) (R); Pain 10/10; 10:44 BP 94 / 75; Pulse 83; Resp 18 S; Pulse Ox 100% on R/A; jd3 08:46 Body Mass Index 16.14 (44.00 kg, 165.10 cm) jd3 MDM: 08:44 Patient medically screened. rn 09:54 Differential diagnosis: bowel obstruction, non-specific abd pain, chronic hernia, rn inguinal hernia, hernia with incarceration. Data reviewed: vital signs, nurses notes, lab test result(s), and as a result, I will discharge patient. Counseling: I had a detailed discussion with the patient and/or guardian regarding: the historical points, exam findings, and any diagnostic results supporting the discharge/admit diagnosis, lab results, the need for outpatient follow up, to return to the emergency department if symptoms worsen or persist or if there are any questions or concerns that arise at home. Special discussion: Based on the patient's Hx, exam, and Dx evaluation, there is no indication for emergent surgery or inpatient Tx. It is understood by the patient/guardian that if the Sx's persist or worsen they need to return immediately for re-evaluation. I discussed with the patient/guardian in detail that at this point there is no indication for admission to the hospital. It is understood, however, that if the symptoms persist or worsen the patient needs to return immediately for re-evaluation. ED course: After fentanyl, hernia easily reduced, patient reports pain resolved and feels much better, requests food, will give food and potassium and dc home. CT canceled given hernia reduced and now pain free. . 12/11 08:45 Order name: CBC with Diff; Complete Time: 09:19 rn 12/11 08:45 Order name: Basic Metabolic Panel; Complete Time: 09:19 rn 12/11 08:45 Order name: IV Start; Complete Time: 08:49 rn Administered Medications: 08:56 Drug: NS 0.9% 1000 ml Route: IV; Rate: 1000 ml; Site: right antecubital; jd3 09:50 Follow up: Response: No adverse reaction; IV Status: Completed infusion jd3 08:56 Drug: fentaNYL (PF) 50 mcg Route: IVP; Site: right antecubital; jd3 09:58 Follow up: Response: Pain is decreased jh6 08:56 Drug: Zofran (Ondansetron) 4 mg Route: IVP; Site: right antecubital; jd3 09:58 Follow up: Response: No adverse reaction jh6 09:58 Drug: Potassium Chloride 40 mEq Route: PO; jh6 10:44 Follow up: Response: No adverse reaction jd3 Disposition Summary: 12/11/21 09:56 Discharge Ordered Location: Home rn Problem: chronic rn Symptoms: have improved rn Condition: Stable rn Diagnosis - Unilateral inguinal hernia, without obstruction or gangrene, recurrent rn Followup: rn - With: Milton Ramírez MD - When: As needed - Reason: Recheck today's complaints, Re-evaluation by your physician Discharge Instructions: - Discharge Summary Sheet rn - Hernia, Adult rn - Inguinal Hernia, Adult, [id number] rn Forms: - Medication Reconciliation Form rn - Thank You Letter rn - 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 EDMS EDMS
--- NOTE | 2021-12-11 09:56 | ER ---
Nurse's Notes [facility] Name: Tahir Ag Jr Age: 36 yrs Sex: Male : 1985 Arrival Date: 12/11/2021 Time: 08:44 Bed 5 Private MD: Diagnosis: Unilateral inguinal hernia, without obstruction or gangrene, recurrent Presentation: 12/11 08:44 Chief complaint: EMS states: "pt is reporting right lower abdominal pain related to a jd3 hernia in his groin. 20 G started in the right AC. stable vitals.". Coronavirus screen: At this time, the client does not indicate any symptoms associated with coronavirus-19. Ebola Screen: No symptoms or risks identified at this time. Initial Sepsis Screen: Does the patient meet any 2 criteria? No. Patient's initial sepsis screen is negative. Does the patient have a suspected source of infection? No. Patient's initial sepsis screen is negative. Risk Assessment: Do you want to hurt yourself or someone else? Patient reports no desire to harm self or others. Onset of symptoms was December 11, 2021. 08:44 Method Of Arrival: EMS: [facility] jd3 08:44 Acuity: MARTINA 3 jd3 Historical: - Allergies: 08:48 No Known Allergies; jd3 - PMHx: 08:48 Bipolar disorder; Diabetes - NIDDM; Hernia; Hypertension; Schizophrenia; jd3 - Immunization history:: Adult Immunizations up to date. - Social history:: Smoking status: Patient reports the use of cigarette tobacco products. - Family history:: not pertinent. - Hospitalizations: : No recent hospitalization is reported. Screenin:45 Abuse screen: Denies threats or abuse. jh6 08:45 Nutritional screening: On has G tube and takes feedings. Tuberculosis screening: No jh6 symptoms or risk factors identified. Fall Risk None identified. Assessment: 08:45 General: Appears uncomfortable, unkempt, malnourished, Behavior is calm, cooperative. jh6 Pain: Complains of pain in right lower quadrant. 09:40 Reassessment: Patient and/or family updated on plan of care and expected duration. Pain jh6 level reassessed. Patient states feeling better. Patient states symptoms have improved. 09:40 Pain: Complains of pain in right lower quadrant Pain currently is 3 out of 10 on a pain jh6 scale. 10:43 Reassessment: No changes from previously documented assessment. Patient and/or family jd3 updated on plan of care and expected duration. Pain level reassessed. Patient states feeling better. Vital Signs: 08:46 BP 95 / 72; Pulse 81; Resp 17 S; Temp 98.2(TE); Pulse Ox 100% on R/A; Weight 44 kg (R); jd3 Height 5 ft. 5 in. (165.10 cm) (R); Pain 10/10; 10:44 BP 94 / 75; Pulse 83; Resp 18 S; Pulse Ox 100% on R/A; jd3 08:46 Body Mass Index 16.14 (44.00 kg, 165.10 cm) jd3 ED Course: 08:40 Maintain EMS IV. Dressing intact. Good blood return noted. Site clean \\T\\ dry. Gauge \\T\\ jh 6 site: 20g to rt fa. . 08:44 Patient arrived in ED. eb 08:44 Omari Wang MD is Attending Physician. rn 08:46 Triage completed. jd3 08:48 Arm band placed on. jd3 09:04 Kandace Hernandez, MARTINA is Primary Nurse. jh6 09:06 Bed in low position. Call light in reach. Side rails up X 1. jh6 09:56 Milton Ramírez MD is Referral Physician. rn 10:42 No provider procedures requiring assistance completed. IV discontinued, intact, jd3 bleeding controlled, No redness/swelling at site. Pressure dressing applied. Administered Medications: 08:56 Drug: NS 0.9% 1000 ml Route: IV; Rate: 1000 ml; Site: right antecubital; jd3 09:50 Follow up: Response: No adverse reaction; IV Status: Completed infusion jd3 08:56 Drug: fentaNYL (PF) 50 mcg Route: IVP; Site: right antecubital; jd3 09:58 Follow up: Response: Pain is decreased jh6 08:56 Drug: Zofran (Ondansetron) 4 mg Route: IVP; Site: right antecubital; jd3 09:58 Follow up: Response: No adverse reaction jh6 09:58 Drug: Potassium Chloride 40 mEq Route: PO; jh6 10:44 Follow up: Response: No adverse reaction jd3 Outcome: 09:56 Discharge ordered by . rn 10:43 Discharged to home ambulatory. jd3 10:43 Condition: stable 10:43 Discharge instructions given to patient, Instructed on discharge instructions, follow up and referral plans. Demonstrated understanding of instructions, follow-up care. 10:43 Patient left the ED. jd3 Signatures: Omari Wang MD MD rn Davies, Jonathon RN RN jd3 Francie Akers Jennifer RN RN jh6
[2021-12-11] MEDS ORDERED: POTASSIUM CL SA 10 MEQ TAB PO ONE (09:58)
[2021-12-11 10:59] VITALS: BP 95/72; TEMP 98.2; O2SAT 100
== END 2021-12-11 10:43 | disposition home or self-care (01) ==
LOC: ER 08:42
DX: K40.90 Unilateral inguinal hernia, without obstruction or gangrene, not specified as recurrent (principal); I10 Essential (primary) hypertension; E11.9 Type 2 diabetes mellitus without complications; F20.9 Schizophrenia, unspecified
CPT/HCPCS: 96361; 85025; 80048; 36415; 96375; 96374; 99283; J3010; J7030; J2405

== ENCOUNTER 2021-12-13 13:45 | Emergency (ER) | payer OTHER ==
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
[2021-12-13] MEDS ORDERED: FENTANYL CITR 100 MCG/2 ML ONE ×2 (15:04→16:29)
[2021-12-13] MEDS ORDERED: ONDANSETRON 4 MG/2 ML VIAL ONE (15:05)
[2021-12-13 15:11] LABS: Absolute Lymphocytes (CBC) 1.6 K/uL (0.7-4.9); Lymphocytes % 15.3 % (15.3-44.8); MPV 8.6 fL (7.6-11.3); RBC Red Blood Cell Count 2.95 M/uL (4.33-5.43)
[2021-12-13 15:33] LABS: BUN Blood Urea Nitrogen 6 mg/dL (7-18); Bicarbonate 31 mmol/L (21-32); Glucose Level 84 mg/dL (74-106); Sodium Level 142 mmol/L (136-145)
--- NOTE | 2021-12-13 16:48 | EDPHYS ---
Physician Documentation [facility] Name: Tahir Ag Jr Age: 36 yrs Sex: Male : 1985 Arrival Date: 12/13/2021 Time: 13:49 Bed 13 Private MD: ED Physician Omari Wang HPI: 12/13 14:21 This 36 yrs old Black Male presents to ER via EMS with complaints of inguinal hernia pm1 pain. 14:21 The patient presents with right inguinal hernia pain. pm1 14:21 Onset: The symptoms/episode began/occurred 2 day(s) ago. The symptoms do not radiate. pm1 Associated signs and symptoms: none. The symptoms are described as achy, constant. Modifying factors: The symptoms are alleviated by nothing, the symptoms are aggravated by nothing. The patient has experienced similar episodes in the past, chronically. The patient has been recently seen at the [facility] Emergency Department, last week, for similar complaints inguinal hernia was reduced 2 days ago. Historical: - Allergies: 13:50 No Known Allergies; jd3 - PMHx: 13:50 Bipolar disorder; Diabetes - NIDDM; Hernia; Hypertension; Schizophrenia; jd3 - Immunization history:: Adult Immunizations up to date. - Social history:: Smoking status: unknown. ROS: 14:21 Constitutional: Negative for fever, chills, and weight loss, Cardiovascular: Negative pm1 for chest pain, palpitations, and edema, Respiratory: Negative for shortness of breath, cough, wheezing, and pleuritic chest pain, Abdomen/GI: Negative for abdominal pain, nausea, vomiting, diarrhea, and constipation, MS/Extremity: Negative for injury and deformity, Skin: Negative for injury, rash, and discoloration, Neuro: Negative for headache, weakness, numbness, tingling, and seizure. 14:21 All other systems are negative. Exam: 14:21 Constitutional: This is a well developed, well nourished patient who is awake, alert, pm1 and in no acute distress. Head/Face: Normocephalic, atraumatic. 14:21 Back: No spinal tenderness. No costovertebral tenderness. Full range of motion. Skin: Warm, dry with normal turgor. Normal color with no rashes, no lesions, and no evidence of cellulitis. MS/ Extremity: Pulses equal, no cyanosis. Neurovascular intact. Full, normal range of motion. 14:21 Cardiovascular: Exam negative for acute changes, Rate: normal, Rhythm: regular, Pulses: no pulse deficits are appreciated. 14:21 Respiratory: Exam negative for acute changes, respiratory distress, shortness of breath. 14:21 Abdomen/GI: Palpation: abdomen is soft and non-tender, in all quadrants, Hernia: noted in the right inguinal area, incarceration, is not appreciated. 14:21 Neuro: Exam negative for acute changes, Orientation: is normal, Mentation: is normal, Motor: is normal, moves all fours. Vital Signs: 13:50 BP 95 / 42; Pulse 88; Resp 17 S; Temp 98.9(O); Pulse Ox 100% on R/A; Weight 45.36 kg jd3 (R); Height 5 ft. 5 in. (165.10 cm) (R); Pain 10/10; 15:05 BP 98 / 54; Pulse 83; Resp 17; Pulse Ox 98% ; Pain 7/10; jh6 16:53 BP 102 / 56; Pulse 84; Resp 17; Pulse Ox 100% ; Pain 3/10; jh6 13:50 Body Mass Index 16.64 (45.36 kg, 165.10 cm) jd3 Procedures: 16:46 Reduction: of the large right inguinal hernia, using Trendelenburg position and steady pm1 pressure. Bilateral testicles palpable after reduction, Patient tolerated well. MDM: 14:18 Patient medically screened. pm1 14:21 Data reviewed: vital signs. Data interpreted: Pulse oximetry: on room air is 100 %. pm1 Interpretation: normal. 16:46 Physician consultation: Rolan Angeles MD in the emergency department to see patient at pm1 16:46, Patient can follow up with him the office. 12/13 14:21 Order name: CBC with Diff; Complete Time: 15:27 pm1 12/13 14:21 Order name: BMP; Complete Time: 15:41 pm1 12/13 14:21 Order name: IV Saline Lock; Complete Time: 15:33 pm1 Administered Medications: 15:11 Drug: Zofran (Ondansetron) 4 mg Route: IVP; Site: left forearm; [facility] 16:00 Follow up: Response: No adverse reaction [facility] 15:12 Drug: fentaNYL (PF) 50 mcg Route: IVP; Site: left forearm; [facility] 16:00 Follow up: Response: No adverse reaction; Pain is decreased [facility] 16:28 Drug: fentaNYL (PF) 25 mcg Route: IVP; Site: left forearm; 6 16:55 Follow up: Response: Pain is decreased [facility] Disposition Summary: 12/13/21 16:48 Discharge Ordered Location: Home pm1 Problem: new pm1 Symptoms: have improved pm1 Condition: Stable pm1 Diagnosis - Unilateral inguinal hernia, without obstruction or gangrene pm1 Followup: pm1 - With: Emergency Department - When: As needed - Reason: Worsening of condition Followup: pm1 - With: Private Physician - When: 2 - 3 days - Reason: Recheck today's complaints, Continuance of care, Re-evaluation by your physician Followup: pm1 - With: Rolan Angeles MD - When: 2 - 3 days - Reason: Recheck today's complaints, Continuance of care, Re-evaluation by your physician Discharge Instructions: - Discharge Summary Sheet pm1 - Inguinal Hernia, Adult pm1 Forms: - Medication Reconciliation Form pm1 - Thank You Letter pm1 - Antibiotic Education pm1 - Prescription Opioid Use pm1 Addendum: 12/16/2021 23:12 Co-signature as Attending Physician, Omari Wang MD I agree with the assessment and r n plan of care. Attestation: The patient's history, exam findings, diagnostics, and a summary of any interventions or procedures was reviewed in detail with Elgin Leal NP. Signatures: Dispatcher [employer] EDOmari Moore MD MD rn Marinas, Patrick, NP [employer] pm1 Kilo Reed RN RN jd3 Kandace Hernandez RN RN jh6
--- NOTE | 2021-12-13 16:48 | ER ---
Nurse's Notes [facility] Name: Tahir Ag Jr Age: 36 yrs Sex: Male : 1985 Arrival Date: 12/13/2021 Time: 13:49 Bed 13 Private MD: Diagnosis: Unilateral inguinal hernia, without obstruction or gangrene Presentation: 12/13 13:49 Chief complaint: EMS states: "pt is reporting a returning pain related to his hernia. jd3 pain started last night.". Coronavirus screen: At this time, the client does not indicate any symptoms associated with coronavirus-19. Ebola Screen: No symptoms or risks identified at this time. Initial Sepsis Screen: Does the patient meet any 2 criteria? No. Patient's initial sepsis screen is negative. Does the patient have a suspected source of infection? No. Patient's initial sepsis screen is negative. Risk Assessment: Do you want to hurt yourself or someone else? Patient reports no desire to harm self or others. Onset of symptoms was December 12, 2021. 13:49 Method Of Arrival: EMS: [facility] jd3 13:49 Acuity: MARTINA 3 jd3 Historical: - Allergies: 13:50 No Known Allergies; jd3 - PMHx: 13:50 Bipolar disorder; Diabetes - NIDDM; Hernia; Hypertension; Schizophrenia; jd3 - Immunization history:: Adult Immunizations up to date. - Social history:: Smoking status: unknown. Screenin:51 Abuse screen: Denies threats or abuse. Nutritional screening: No deficits noted. jd3 Tuberculosis screening: No symptoms or risk factors identified. Fall Risk Ambulatory Aid- None/Bed Rest/Nurse Assist (0 pts). Gait- Normal/Bed Rest/Wheelchair (0 pts) Mental Status- Oriented to own ability (0 pts). Total [place] Fall Scale indicates No Risk (0-24 pts). Assessment: 14:07 General: Appears in no apparent distress. Behavior is calm, cooperative. Pain: jh6 Complains of pain in right lower quadrant Pain currently is 8 out of 10 on a pain scale. Quality of pain is described as shooting, stabbing, gnawing, Pain began 1 day ago. Is continuous, chronic. 16:51 Reassessment: [employer] able to reduce hernia, pt tolerated well after receiving second dose jh6 of pain meds. Pt was advised again that he needed to wear form fitting underwear and jock strap until he is able to get in with a surgeon. Pt reporting that pain is decreased and is feeling better. Patient states feeling better. Patient states symptoms have improved. Vital Signs: 13:50 BP 95 / 42; Pulse 88; Resp 17 S; Temp 98.9(O); Pulse Ox 100% on R/A; Weight 45.36 kg jd3 (R); Height 5 ft. 5 in. (165.10 cm) (R); Pain 10/10; 15:05 BP 98 / 54; Pulse 83; Resp 17; Pulse Ox 98% ; Pain 7/10; jh6 16:53 BP 102 / 56; Pulse 84; Resp 17; Pulse Ox 100% ; Pain 3/10; jh6 13:50 Body Mass Index 16.64 (45.36 kg, 165.10 cm) [facility] ED Course: 13:49 Patient arrived in ED. [facility] 13:50 Triage completed. [facility] 13:51 Arm band placed on. jd3 13:51 Patient has correct armband on for positive identification. Bed in low position. Call [facility] light in reach. Side rails up X 1. Adult w/ patient. Pulse ox on. NIBP on. 13:54 Elgin Leal NP is PHCP. pm1 13:54 Omari Wang MD is Attending Physician. pm1 14:07 Kandace Hernandez RN is Primary Nurse. jh6 15:00 Inserted saline lock: 22 gauge in left forearm, using aseptic technique. Blood jh6 collected. 16:48 Rolan Angeles MD is Referral Physician. pm1 16:54 IV discontinued, intact, bleeding controlled, No redness/swelling at site. Pressure jh6 dressing applied. Administered Medications: 15:11 Drug: Zofran (Ondansetron) 4 mg Route: IVP; Site: left forearm; jh6 16:00 Follow up: Response: No adverse reaction jh6 15:12 Drug: fentaNYL (PF) 50 mcg Route: IVP; Site: left forearm; jh6 16:00 Follow up: Response: No adverse reaction; Pain is decreased jh6 16:28 Drug: fentaNYL (PF) 25 mcg Route: IVP; Site: left forearm; jh6 16:55 Follow up: Response: Pain is decreased jh6 Outcome: 16:48 Discharge ordered by . pm1 17:01 Discharged to home ambulatory. jh6 17:01 Condition: good 17:01 Discharge instructions given to patient, Instructed on discharge instructions, follow up and referral plans. Demonstrated understanding of instructions, follow-up care. 17:02 Patient left the ED. 6 Signatures: Elgin Leal NP [employer] pm1 Kilo Reed RN RN jd3 Kandace Hernandez RN RN jh6 Corrections: (The following items were deleted from the chart) 13:52 13:50 Pulse 88bpm; Resp 17bpm; Spontaneous; Pulse Ox 100% RA; Temp 98.9F Oral; 45.36 kg jd3 Reported; Height 5 ft. 5 in. Reported; BMI: 16.6; Pain 08/02; jd3
[2021-12-13 17:12] VITALS: TEMP 98.9
[2021-12-13 17:15] VITALS: BP 102/56; O2SAT 100
== END 2021-12-13 17:02 | disposition home or self-care (01) ==
LOC: ER 13:45
DX: K40.90 Unilateral inguinal hernia, without obstruction or gangrene, not specified as recurrent (principal); I10 Essential (primary) hypertension
CPT/HCPCS: 85025; 80048; 36415; 96375; 96374; 99284; J3010 ×2; J2405

== ENCOUNTER 2021-12-17 06:52 | Emergency (ER) | payer OTHER ==
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
[2021-12-17] MEDS ORDERED: FENTANYL CITR 100 MCG/2 ML ONE (07:48)
[2021-12-17] MEDS ORDERED: DIAZEPAM 10 MG/2 ML INJ SYRINGE ONE (07:49)
[2021-12-17] MEDS ORDERED: Ringers Lactate 1,000 ML IV ONE (08:23)
--- NOTE | 2021-12-17 09:18 | ER ---
[facility] Name: Tahir Ag Jr Age: 36 yrs Sex: Male : 1985 Arrival Date: 12/17/2021 Time: 06:59 Bed 14 Private MD: Diagnosis: Right inguinal hernia, reduced Presentation: 12/17 06:59 Chief complaint: EMS states: Toned out for right groin pain, C/O back pain. Coronavirus tk1 screen: Vaccine status: Patient reports receiving the 2nd dose of the covid vaccine. At this time, the client does not indicate any symptoms associated with coronavirus-19. Ebola Screen: No symptoms or risks identified at this time. Initial Sepsis Screen: Does the patient meet any 2 criteria? No. Patient's initial sepsis screen is negative. Does the patient have a suspected source of infection? No. Patient's initial sepsis screen is negative. Risk Assessment: Do you want to hurt yourself or someone else? Patient reports no desire to harm self or others. Onset of symptoms is unknown. 06:59 Method Of Arrival: EMS: [facility] tk1 06:59 Acuity: MARTINA 4 tk1 Triage Assessment: 07:01 General: Appears uncomfortable, Behavior is calm, cooperative. General: Appears tk1 unkempt. Pain: Complains of pain in groin. Neuro: Level of Consciousness is awake, alert, obeys commands, Oriented to person, place, time, situation. Cardiovascular: Patient's skin is warm and dry. Respiratory: Respiratory effort is even, unlabored, Respiratory pattern is regular, symmetrical. GI: PEG tube in place, clamped. to gravity drainage. Derm: Skin is pink, warm \T\ dry. Historical: - Home Meds: 07:01 Depakote Oral [Active]; Hydrocodone-Acetaminophen 5/500 Oral [Active]; Risperdal Oral tk1 [Active]; - PMHx: 07:01 Bipolar disorder; Diabetes - NIDDM; Hernia; Hypertension; Schizophrenia; tk1 - PSHx: 07:01 None; tk1 - Immunization history:: Client reports receiving the 2nd dose of the Covid vaccine. - Social history:: Smoking status: Patient reports the use of cigarette tobacco products, smokes one pack cigarettes per day. Screenin:05 Abuse screen: Denies threats or abuse. Denies injuries from another. Nutritional cb5 screening: No deficits noted. Tuberculosis screening: No symptoms or risk factors identified. 09:30 Fall Risk None identified. cb5 Assessment: 07:10 General: Appears uncomfortable, slender, unkempt, Behavior is calm, cooperative, cb5 appropriate for age. Pain: Complains of pain in pelvis and groin Pain currently is 6 out of 10 on a pain scale. Neuro: Level of Consciousness is awake, alert, obeys commands, Oriented to person, place, time, situation, Appropriate for age. Cardiovascular: No deficits noted. Respiratory: No deficits noted. Respiratory: No deficits noted. GI: Abd is soft Abdomen is tender to palpation Guarding noted pt guarding left lower groin, states he has a inguinal hernia. : No deficits noted. EENT: No deficits noted. Derm: No deficits noted. Musculoskeletal: No deficits noted. 08:10 Reassessment: Patient and/or family updated on plan of care and expected duration. Pain cb5 level reassessed. Vital Signs: 06:59 BP 108 / 59; Pulse 59; Resp 16; Temp 97.9; Pulse Ox 98% on R/A; Weight 44.45 kg (R); tk1 Height 5 ft. 5 in. (165.10 cm) (R); Pain 10/10; 07:00 BP 116 / 90; Pulse 72; Resp 16; Pulse Ox 99% ; cb5 07:57 BP 111 / 86; Pulse 70; Resp 16; Pulse Ox 99% ; Pain 6/10; cb5 08:00 BP 111 / 87; Pulse 71; Resp 16; Pulse Ox 98% ; cb5 08:15 BP 96 / 73; Pulse 73; Resp 16; Pulse Ox 98% ; cb5 08:30 BP 107 / 91; Pulse 72; Resp 16; Pulse Ox 98% ; Pain 0/10; cb5 09:00 BP 102 / 75; Pulse 74; Resp 16; Pulse Ox 99% ; Pain 0/10; cb5 06:59 Body Mass Index 16.31 (44.45 kg, 165.10 cm) tk1 ED Course: 06:59 Patient arrived in ED. tk1 06:59 Teo Alvares PA is PHCP. [facility] 06:59 Omari Wang MD is Attending Physician. [facility] 07:01 Triage completed. tk1 07:01 Arm band placed on Patient placed in an exam room, on a stretcher, on pulse oximetry. tk1 07:05 Bed in low position. Call light in reach. Side rails up X 1. cb5 07:05 No provider procedures requiring assistance completed. cb5 07:16 Inessa Hand, RN is Primary Nurse. cb5 09:16 Rolan Angeles MD is Referral Physician. [facility] 09:31 IV discontinued. cb5 Administered Medications: 07:50 Drug: Valium (diazepam) 5 mg Route: IVP; Site: right antecubital; cb5 07:54 Drug: fentaNYL (PF) 50 mcg {Note: administered 25mcg now and will administer 25mcg cb5 prior ro procedure. Pt is on oxygen at 2lpmNC, and bedise monitor.} Route: IVP; Site: right antecubital; 08:22 Drug: Lactated Ringers Solution 500 ml Route: IV; Rate: 500 bolus; Site: right cb5 antecubital; Outcome: :17 Discharge ordered by . [facility] 09:30 Discharged to home ambulatory. cb5 09:30 Condition: stable 09:30 Discharge instructions given to :31 Patient left the ED. 5 Signatures: Teo Alvares PA PA jmm Kirby, Tammie tk1 Inessa Hand, RN RN cb5
--- NOTE | 2021-12-17 09:18 | EDPHYS ---
Physician Documentation [facility] Name: Tahir Ag Jr Age: 36 yrs Sex: Male : 1985 Arrival Date: 12/17/2021 Time: 06:59 Bed 14 Private MD: ED Physician Omari Wang HPI: 12/17 07:05 This 36 yrs old Black Male presents to ER via EMS with complaints of Hernia. jmm 07:05 Onset: The symptoms/episode began/occurred Chronic. Modifying factors: The symptoms are jmm alleviated by nothing, the symptoms are aggravated by nothing. Associated signs and symptoms: Pertinent negatives: fever, vomiting. This is a 36-year-old male with history of bipolar, diabetes mellitus, right inguinal hernia, hypertension, schizophrenia the presents emerged department with complaints of right inguinal pain and swelling. Patient states he was unable to reduce the hernia himself. Denies fever, vomiting.. Historical: - Home Meds: 07:01 Depakote Oral [Active]; Hydrocodone-Acetaminophen 5/500 Oral [Active]; Risperdal Oral tk1 [Active]; - PMHx: 07:01 Bipolar disorder; Diabetes - NIDDM; Hernia; Hypertension; Schizophrenia; tk1 - PSHx: 07:01 None; tk1 - Immunization history:: Client reports receiving the 2nd dose of the Covid vaccine. - Social history:: Smoking status: Patient reports the use of cigarette tobacco products, smokes one pack cigarettes per day. ROS: 07:05 Constitutional: Negative for fever, chills, and weight loss, Cardiovascular: Negative jmm for chest pain, palpitations, and edema, Respiratory: Negative for shortness of breath, cough, wheezing, and pleuritic chest pain. 07:05 Abdomen/GI: Positive for abdominal pain. 07:05 : Positive for testicular pain 07:05 All other systems are negative. Exam: 07:05 Constitutional: This is a well developed, well nourished patient who is awake, alert, jmm and in no acute distress. Head/Face: atraumatic. Eyes: EOMI, no conjunctival erythema appreciated ENT: Moist Mucus Membranes Neck: Trachea midline, Supple Chest/axilla: Normal chest wall appearance and motion. Cardiovascular: Regular rate and rhythm. No edema appreciated Respiratory: Normal respirations, no respiratory distress appreciated Abdomen/GI: Non distended, soft 07:05 Skin: General appearance color normal MS/ Extremity: Moves all extremities, no obvious deformities appreciated, no edema noted to the lower extremities Neuro: Awake and alert Psych: Behavior is normal, Mood is normal, Patient is cooperative and pleasant 07:05 : Male external genitalia: swelling: is noted in the right inguinal area. Vital Signs: 06:59 BP 108 / 59; Pulse 59; Resp 16; Temp 97.9; Pulse Ox 98% on R/A; Weight 44.45 kg (R); tk1 Height 5 ft. 5 in. (165.10 cm) (R); Pain 10/10; 07:00 BP 116 / 90; Pulse 72; Resp 16; Pulse Ox 99% ; cb5 07:57 BP 111 / 86; Pulse 70; Resp 16; Pulse Ox 99% ; Pain 6/10; cb5 08:00 BP 111 / 87; Pulse 71; Resp 16; Pulse Ox 98% ; cb5 08:15 BP 96 / 73; Pulse 73; Resp 16; Pulse Ox 98% ; cb5 08:30 BP 107 / 91; Pulse 72; Resp 16; Pulse Ox 98% ; Pain 0/10; cb5 09:00 BP 102 / 75; Pulse 74; Resp 16; Pulse Ox 99% ; Pain 0/10; cb5 06:59 Body Mass Index 16.31 (44.45 kg, 165.10 cm) tk1 MDM: 07:30 Patient medically screened. [facility] 09:15 Data reviewed: vital signs, nurses notes. Counseling: I had a detailed discussion with terell the patient and/or guardian regarding: the historical points, exam findings, and any diagnostic results supporting the discharge/admit diagnosis, the need for outpatient follow up, to return to the emergency department if symptoms worsen or persist or if there are any questions or concerns that arise at home. ED course: Right inguinal hernia was reducible after positioning the patient in Trendelenburg position and administering analgesics and anxiolytics. Patient states feeling much better. Vital signs are normal. Patient states he is planning on visiting with surgery for repair of the hernia. I do not currently suspect incarceration or strangulation. Patient otherwise given strict return precautions. Patient understood agrees plan of care.. 12/17 07:05 Order name: [facility]. Order: reverse trendelenberg; Complete Time: 07:25 [facility] 12/17 07:05 Order name: Saline Lock; Complete Time: [facility] 12/17 07:31 Order name: Gown patient; Complete Time: jm Administered Medications: 07:50 Drug: Valium (diazepam) 5 mg Route: IVP; Site: right antecubital; cb5 07:54 Drug: fentaNYL (PF) 50 mcg {Note: administered 25mcg now and will administer 25mcg cb5 prior ro procedure. Pt is on oxygen at 2lpmNC, and bedise monitor.} Route: IVP; Site: right antecubital; 08:22 Drug: Lactated Ringers Solution 500 ml Route: IV; Rate: 500 bolus; Site: right cb5 antecubital; Disposition: 19:00 Co-signature as Attending Physician, Omari Wang MD. rn Disposition Summary: 12/17/21 09:17 Discharge Ordered Location: Home [facility] Condition: Stable jmm Diagnosis - Right inguinal hernia, reduced jmm Followup: [facility] - With: Rolan Angeles MD - When: 2 - 3 days - Reason: Recheck today's complaints, Continuance of care, Re-evaluation by your physician Discharge Instructions: - Discharge Summary Sheet [facility] - Hernia, Adult jm Forms: - Medication Reconciliation Form [facility] - Thank You Letter [facility] - Antibiotic Education [facility] - Prescription Opioid Use [facility] Signatures: Teo Alvares PA PA Omari Humphreys MD MD rn Kirby, Tammie tk1 Inessa Hand, RN RN cb5
[2021-12-17 09:36] VITALS: TEMP 97.9
[2021-12-17 09:44] VITALS: BP 102/75; O2SAT 99
== END 2021-12-17 09:31 | disposition home or self-care (01) ==
LOC: ER 06:52
DX: K40.90 Unilateral inguinal hernia, without obstruction or gangrene, not specified as recurrent (principal); I10 Essential (primary) hypertension; E11.9 Type 2 diabetes mellitus without complications; F20.9 Schizophrenia, unspecified; F17.210 Nicotine dependence, cigarettes, uncomplicated
CPT/HCPCS: 96375; 96374; 99284; J3360; J3010; J7120

== ENCOUNTER 2021-12-19 09:35 | Inpatient (IN) | payer OTHER ==
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
[2021-12-19 10:19] LABS: Absolute Lymphocytes (CBC) 1.7 K/uL (0.7-4.9); Hematocrit 30.8 % (39.6-49.0); Lymphocytes % 40.7 % (15.3-44.8); MPV 8.8 fL (7.6-11.3)
--- NOTE | 2021-12-19 10:35 | RAD REPORT ---
EXAM DESCRIPTION: RAD - Chest Single View - 12/19/2021 10:26 am CLINICAL HISTORY: COUGH Chest pain. COMPARISON: Chest Single View dated 01/03/2021; Chest Single View dated 11/27/2020; Chest Single View d ated 10/09/2020; Chest Single View dated 10/05/2020; Head C Spine Mpr Wo Con dated 06/12/2021 FINDINGS: Portable technique limits examination quality. The lungs are grossly clear. The heart is normal in size. Fullness in the upper mediastinum is again seen but slightly less prominent than on the comparative study.Osteochondromas are present in both pr oximal humeri.
[2021-12-19 11:08] LABS: Bicarbonate 29 mmol/L (21-32); Glucose Level 43 mg/dL (74-106); Sodium Level 142 mmol/L (136-145)
[2021-12-19 11:09] LABS: BUN Blood Urea Nitrogen < 3 mg/dL (7-18)
[2021-12-19 11:10] LABS: Potassium 2.2 mmol/L (3.5-5.1)
[2021-12-19 11:23] LABS: SARS-COV-2 RT PCR NEGATIVE (NEGATIVE)
[2021-12-19] MEDS ORDERED: FENTANYL CITR 100 MCG/2 ML ONE (11:55)
[2021-12-19] MEDS ORDERED: D10W 250 ML IV ONE (11:56)
[2021-12-19] MEDS ORDERED: KCL 20 MEQ/100 mL IVPB 100 ML IV ONE (11:56)
[2021-12-19] MEDS ORDERED: NA CHLORIDE 0.9% 1,000 ML ONE (11:57)
--- NOTE | 2021-12-19 12:11 | ER ---
Nurse's Notes [facility] Name: Tahir Ag Jr Age: 36 yrs Sex: Male : 1985 Arrival Date: 12/19/2021 Time: 09:36 Bed 2 Private MD: Diagnosis: Hypokalemia;Hypoglycemia ;Right Inguinal Hernia Presentation: 12/19 09:38 Chief complaint: Patient states: abdominal pain. Coronavirus screen: Vaccine status: fox Patient reports being unvaccinated. Ebola Screen: Patient denies travel to an Ebola-affected area in the 21 days before illness onset. Initial Sepsis Screen: Does the patient meet any 2 criteria? No. Patient's initial sepsis screen is negative. Does the patient have a suspected source of infection? No. Patient's initial sepsis screen is negative. Risk Assessment: Do you want to hurt yourself or someone else? Patient reports no desire to harm self or others. Onset of symptoms was December 19, 2021. 09:38 Method Of Arrival: EMS: [facility] fox 09:38 Acuity: MARTINA 3 fox 09:38 Acuity: MARTINA 3 fox Triage Assessment: 09:41 General: Appears unkempt, malnourished, Behavior is calm, cooperative. Pain: Complains fox of pain in abdomen. GI: Bowel sounds present X 4 quads. Reports lower abdominal pain, cramping. Historical: - Home Meds: 09:41 Depakote Oral [Active]; Hydrocodone-Acetaminophen 5/500 Oral [Active]; Risperdal Oral fox [Active]; - PMHx: 09:41 Bipolar disorder; Diabetes - NIDDM; Hernia; Hypertension; Schizophrenia; fox - Immunization history:: Adult Immunizations unknown. - Social history:: Smoking status: Patient denies any tobacco usage or history of. Screenin:43 Abuse screen: Denies threats or abuse. Denies injuries from another. Nutritional fox screening: peg tube feeding . Tuberculosis screening: No symptoms or risk factors identified. Fall Risk None identified. Assessment: 09:44 General: Appears in no apparent distress. malnourished, Behavior is calm, cooperative. fox Pain: Complains of pain in abdomen. 14:49 Reassessment: provider pushed hernia back in place. fox Vital Signs: 09:38 BP 101 / 77; Pulse 66; Resp 18; Temp 98.1; Pulse Ox 100% ; Weight 44.45 kg; Height 5 fox ft. 6 in. (167.64 cm); 14:48 BP 111 / 75; Pulse 72; Resp 18; Pulse Ox 98% on R/A; fox 09:38 Body Mass Index 15.82 (44.45 kg, 167.64 cm) ED Course: 09:36 Patient arrived in ED. eb 09:37 Teo Alvares PA is PHCP. [facility] 09:37 Jefry Pathak DO is Attending Physician. jmm 09:41 Triage completed. fox 09:41 Arm band placed on. fox 09:43 Patient has correct armband on for positive identification. Bed in low position. fox 09:43 No provider procedures requiring assistance completed. fox 10:02 CBC with Diff Sent. fox 10:02 BMP Sent. fox 10:02 CBC with Automated Diff Sent. fox 10:02 Basic Metabolic Panel Sent. fox 10:26 Chest Single View XRAY In Process Unspecified. EDMS 10:35 COVID-19/FLU A+B (Document "Date of Onset" if Symptomatic) Sent. fox 12:10 Dariel Benavides is Hospitalizing Provider. m 15:13 Patient admitted, IV remains in place. ll1 Administered Medications: 11:58 Not Given (unavailable. "on backorder" per pharmacy.): D50W 50 ml IVP once; (1 amp) ss 12:02 Drug: fentaNYL (PF) 25 mcg Route: IVP; Site: right antecubital; 15:15 Follow up: Response: No adverse reaction; RASS: Alert and Calm (0) ll1 12:03 Drug: NS 0.9% 1000 ml Route: IV; Rate: 1 bolus; Site: right antecubital; 15:14 Follow up: Response: No adverse reaction; IV Status: Completed infusion; IV Intake: ll1 1000ml 12:03 Drug: Potassium Chloride 20 mEq Route: IV; Rate: calculated rate; Site: right fox antecubital; 15:14 Follow up: Response: No adverse reaction; IV Status: Completed infusion; IV Intake: [id number] 12:05 Drug: D10W 250 ml Route: IVPB; Site: right antecubital; 15:15 Follow up: Response: No adverse reaction; IV Status: Completed infusion; IV Intake: ll1 250ml 12:05 CANCELLED (Duplicate Order): D10 in Water [2 mL/kg] 250 ml IVP once fox Intake: 15:14 IV: 1000ml; Total: 1000ml. ll1 15:14 IV: 50ml; Total: 1050ml. ll1 15:15 IV: 250ml; Total: 1300ml. ll1 Outcome: 12:11 Decision to Hospitalize by Provider. terell 15:13 Admitted to Med/surg accompanied by tech, via wheelchair, with chart. ll1 15:13 Condition: stable 15:13 Instructed on the need for admit. 15:15 Patient left the ED. ll1 Signatures: Dispatcher [employer] EDMS Teo Alvares PA PA jmm Botello, Elizabeth eb Lewis, Lynsay, RN RN [facility] Brenda Kong RN RN fox Taryn Gil RN ss Corrections: (The following items were deleted from the chart) 12:05 12:04 D10 in Water [2 mL/kg] 250 ml IVP in right antecubital fox fox
--- NOTE | 2021-12-19 12:12 | EDPHYS ---
Physician Documentation [facility] Name: Tahir Ag Jr Age: 36 yrs Sex: Male : 1985 Arrival Date: 12/19/2021 Time: 09:36 Bed 2 Private MD: ED Physician Jefry Pathak HPI: 12/19 09:41 This 36 yrs old Black Male presents to ER via EMS with complaints of cough, weakness, jmm abdominal pain. 09:41 Onset: The symptoms/episode began/occurred today. Duration: The symptoms are jmm continuous. The patient's shortness of breath is aggravated by nothing, is alleviated by nothing. Associated signs and symptoms: Pertinent negatives:. 09:41 Is a 36-year-old male with history of hypertension, schizophrenia, bipolar that jmm presents emerge department with complaints of lower abdominal pain secondary to hernia. Patient also complains of a cough, congestion, shortness of breath and also generalized weakness. Patient states that he often has a low potassium level.. Historical: - Home Meds: 09:41 Depakote Oral [Active]; Hydrocodone-Acetaminophen 5/500 Oral [Active]; Risperdal Oral fox [Active]; - PMHx: 09:41 Bipolar disorder; Diabetes - NIDDM; Hernia; Hypertension; Schizophrenia; fox - Immunization history:: Adult Immunizations unknown. - Social history:: Smoking status: Patient denies any tobacco usage or history of. ROS: 09:41 Cardiovascular: Negative for chest pain, palpitations, and edema. jmm 09:41 Constitutional: Positive for body aches. 09:41 Respiratory: Positive for cough, shortness of breath. 09:41 Abdomen/GI: Positive for abdominal pain. 09:41 All other systems are negative. Exam: 09:41 Head/Face: atraumatic. Eyes: EOMI, no conjunctival erythema appreciated ENT: Moist jmm Mucus Membranes Neck: Trachea midline, Supple Chest/axilla: Normal chest wall appearance and motion. Cardiovascular: Regular rate and rhythm. No edema appreciated Respiratory: Normal respirations, no respiratory distress appreciated 09:41 Abdomen/GI: Non distended, soft Back: Normal ROM Skin: General appearance color normal 09:41 Neuro: Awake and alert Psych: Behavior is normal, Mood is normal, Patient is cooperative and pleasant 09:41 Constitutional: The patient appears alert, awake, Cachectic 09:41 Abdomen/GI: Inspection: abdomen appears normal, Bowel sounds: normal, Palpation: soft, nontender, in the . 09:41 Back: ROM is normal. 09:41 : Male external genitalia: swelling: scrotal, is noted in the right inguinal area. 09:41 Musculoskeletal/extremity: ROM: intact in all extremities. Vital Signs: 09:38 BP 101 / 77; Pulse 66; Resp 18; Temp 98.1; Pulse Ox 100% ; Weight 44.45 kg; Height 5 fox ft. 6 in. (167.64 cm); 14:48 BP 111 / 75; Pulse 72; Resp 18; Pulse Ox 98% on R/A; fox 09:38 Body Mass Index 15.82 (44.45 kg, 167.64 cm) fox MDM: 09:41 Patient medically screened. [facility] 12:09 Data reviewed: vital signs, nurses notes. [facility] 12/19 09:58 Order name: CBC with Diff [facility] 12/19 09:58 Order name: BMP [facility] 12/19 09:58 Order name: Chest Single View XRAY; Complete Time: 10:37 [facility] 12/19 10:00 Order name: COVID-19/FLU A+B (Document "Date of Onset" if Symptomatic); Complete Time: [facility] 11:27 12/19 10:00 Order name: CBC with Automated Diff; Complete Time: 10:22 [facility] 12/19 10:00 Order name: Basic Metabolic Panel; Complete Time: 11:11 [facility] 12/19 09:42 Order name: Saline Lock; Complete Time: 10:02 [facility] 12/19 09:42 Order name: Misc. Order: Reverse Trendelenburg; Complete Time: 10:02 [facility] 12/19 10:17 Order name: Labs - recollect needed: recollect lavender and green top tubes; Complete eb Time: 10:27 Administered Medications: 11:58 Not Given (unavailable. "on backorder" per pharmacy.): D50W 50 ml IVP once; (1 amp) ss 12:02 Drug: fentaNYL (PF) 25 mcg Route: IVP; Site: right antecubital; fox 15:15 Follow up: Response: No adverse reaction; RASS: Alert and Calm (0) ll1 12:03 Drug: NS 0.9% 1000 ml Route: IV; Rate: 1 bolus; Site: right antecubital; 15:14 Follow up: Response: No adverse reaction; IV Status: Completed infusion; IV Intake: ll1 1000ml 12:03 Drug: Potassium Chloride 20 mEq Route: IV; Rate: calculated rate; Site: right fox antecubital; 15:14 Follow up: Response: No adverse reaction; IV Status: Completed infusion; IV Intake: [id number] 12:05 Drug: D10W 250 ml Route: IVPB; Site: right antecubital; fox 15:15 Follow up: Response: No adverse reaction; IV Status: Completed infusion; IV Intake: ll1 250ml 12:05 CANCELLED (Duplicate Order): D10 in Water [2 mL/kg] 250 ml IVP once fox Disposition: 21:25 Co-signature as Attending Physician, Jefry Pathak DO I agree with the assessment and ms3 plan of care. Disposition Summary: 12/19/21 12:11 Hospitalization Ordered Hospitalization Status: Inpatient Admission jmm Provider: Dariel Benavides Location: Telemetry/MedSur (Inpatient) jmm Condition: Stable jmm Problem: new jmm Symptoms: have improved jmm Bed/Room Type: Standard [facility] Room Assignment: 208(12/19/21 14:40) dw Diagnosis - Hypokalemia jmm - Hypoglycemia jmm - Right Inguinal Hernia jmm Forms: - Medication Reconciliation Form jmm - SBAR form jmm Signatures: Dispatcher [employer] Blanche Parra RN RN dw Mickail, Joel, PA PA jmm Taryn Gil RN RN Francie Akers Marcus, DO DO ms3 Emili-Brenda Figueroa RN RN ha Lewis, Lynsay RN ll1 Corrections: (The following items were deleted from the chart) 12:05 12:04 D10 in Water [2 mL/kg] 250 ml IVP once ordered. fox fox 12:05 12:05 D10 in Water [2 mL/kg] 250 ml IVP once given. fox fox 12:05 12:05 D10 in Water [2 mL/kg] 250 ml IVP once ordered. fox fox 14:40 12:11 jmm dw 17:52 17:51 The patient has shortness of breath at rest, jmm jmm
[2021-12-19] MEDS ORDERED: POTASSIUM CL 40 MEQ in NA CHLORIDE 0.9% 500 ML IV SCH (13:00)
--- NOTE | 2021-12-19 13:04 | P.HP ---
Certification for Inpatient Patient admitted to: Inpatient With expected LOS: >2 Midnights Practitioner: I am a practitioner with admitting privileges, knowledge of patient current condition, hospital course, and medical plan of care. Services: Services provided to patient in accordance with Admission requirements found in Title 42 Section 412.3 of the Code of Federal Regulations Patient History Date of Service: 12/19/21 Reason for admission: Hypokalemia, hypoglycemia History of Present Illness: 36-year-old with a history of inguinal hernia, achalasia and schizophrenia with protein malnutrition presented to the emergency department with pain from inguinal herniation. Blood work done in the emergency department demonstrated hyperglycemia and hypokalemia. He denies any history of diabetes and does not take any oral hypoglycemics or insulin. ED provider attempted manual reduction of his right inguinal hernia. Patient is hospitalized for further management. Allergies No Known Allergies Allergy (Unverified 12/10/11 10:57) Home Medications: Gabapentin 100 mg FT TID #90 01/15/21 Jevity 1.2 Yaya Liquid 240 ml FT TID #90 bot 01/15/21 Lactulose [Cephulac*] 30 ml PO BID PRN #500 ml 01/15/21 Midodrine HCl [Proamatine*] 5 mg PO TID #90 tab 01/15/21 Mirtazapine [Remeron*] 15 mg PO BEDTIME #30 tab 01/15/21 Risperidone [Risperdal] 1 mg FT BID #60 01/15/21 Venlafaxine HCl [Effexor*] 37.5 mg PO DAILY #30 tab 01/15/21 Hydrocodone 7.5/APAP 325 [[place] 7.5/325 mg*] 1 tab PO Q6H PRN #30 tab 06/13/21 Potassium Bicarbonate/Cit AC [Effer-K 20 Meq Tablet Eff] 20 meq PO DAILY 30 Days #30 tablet.eff 08/20/21 - Past Medical/Surgical History Diabetic: Yes -: Diabetes mellitus type 2 -: Achalasia with severe malnutrition -: Bipolar disorder -: Schizophrenia -: HTN -: PEG tube Psychosocial/ Personal History: Patient with severe bipolar/schizophrenia, achalasia, chronic wounds. Patient was staying with his parents who are now disabled. - Family History Mother -: Diabetes - Social History Alcohol use: No CD- Drugs: No Caffeine use: No Review of Systems Other: Except as documented, all other systems reviewed and negative. Physical Examination - Physical Exam General: Alert, In no apparent distress, Cachectic HEENT: Atraumatic, Mucous membr. moist/pink, Sclerae nonicteric Neck: Supple, JVD not distended Respiratory: Clear to auscultation bilaterally, Normal air movement Cardiovascular: No edema, Regular rate/rhythm, Normal S1 S2, No murmurs Capillary refill: <2 Seconds Gastrointestinal: Normal bowel sounds, Soft and benign, Non-distended, No tenderness Musculoskeletal: No swelling Integumentary: No rashes Neurological: Normal speech, Normal strength at 5/5 x4 extr, Cranial nerves 3-12 intact Lymphatics: No axilla or inguinal lymphadenopathy - Studies Laboratory Data (last 24 hrs) 12/19/21 10:25: Sodium 142, Potassium 2.2 L*, BUN < 3 L, Creatinine 0.57, Glucose 43 L* 12/19/21 09:52: WBC 4.10 L D, Hgb 9.9 L, Hct 30.8 L, Plt Count 349 D Assessment and Plan - Problems (Diagnosis) (1) Hypoglycemia Current Visit: Yes Status: Acute (2) Right inguinal hernia Current Visit: Yes Status: Acute (3) Severe protein-calorie malnutrition Current Visit: Yes Status: Acute (4) Achalasia Current Visit: No Status: Chronic (5) Hypokalemia Current Visit: No Status: Acute - Plan Admit patient to the medical floor. Start patient on D5 normal saline. Regular diet Hypoglycemia protocol IV potassium replacement Check magnesium and phosphorus level and replete as needed. Encourage diet. Patient will need to inguinal hernia repaired as an outpatient.. Reconcile and continue home medication for psychiatric problems. - Advance Directives Does patient have a Living Will: No Does patient have a Durable POA for Healthcare: No
[2021-12-19] MEDS ORDERED: GLUCAGON 1 MG/VIAL IM PRN (13:05)
[2021-12-19] MEDS ORDERED: D10W 250 ML BAG IV PRN (13:11)
[2021-12-19] MEDS ORDERED: ONDANSETRON 4 MG/2 ML VIAL IV PRN (15:38)
[2021-12-19] MEDS ORDERED: ACETAMINOPHEN 500 MG TAB PO PRN (15:38)
[2021-12-19 16:03] VITALS: BMI 17.3
[2021-12-19] MEDS: D5 0.9 NS 1,000 ML IV SCH (16:48)
[2021-12-19] MEDS: MORPHINE 2 MG/ML SYR IV PRN (20:40)
[2021-12-20] MEDS: D5 0.9 NS 1,000 ML IV SCH ×5 (01:38→21:38)
[2021-12-20] MEDS: BENZONATATE 100 MG CAP PO PRN (01:55)
[2021-12-20] MEDS: ALBUTEROL 2.5 MG/3 ML NEB SOL NEB SCH ×4 (02:00→20:10)
[2021-12-20] MEDS: MORPHINE 2 MG/ML SYR IV PRN ×2 (02:27→08:24)
[2021-12-20 04:29] LABS: Absolute Lymphocytes (CBC) 2.1 K/uL (0.7-4.9); Hematocrit 28.5 % (39.6-49.0); Lymphocytes % 43.1 % (15.3-44.8); MPV 8.5 fL (7.6-11.3); RBC Red Blood Cell Count 3.09 M/uL (4.33-5.43)
[2021-12-20 04:46] LABS: Bicarbonate 33 mmol/L (21-32); Glucose Level 72 mg/dL (74-106); Magnesium 1.8 mg/dL (1.8-2.4); Phosphorus 2.7 mg/dL (2.5-4.9); Sodium Level 146 mmol/L (136-145)
[2021-12-20 04:47] LABS: BUN Blood Urea Nitrogen < 3 mg/dL (7-18)
[2021-12-20] MEDS ORDERED: MAGNESIUM SULFATE 1 gm IVPB 1 GM/100 ML BAG IV ONE (06:00)
[2021-12-20] MEDS ORDERED: POTASSIUM CL SA 10 MEQ TAB PO ONE (06:00)
--- NOTE | 2021-12-20 08:11 | RAD REPORT ---
EXAM DESCRIPTION: RAD - Chest Single View - 12/20/2021 6:57 am CLINICAL HISTORY: wheezing/cough COMPARISON: Chest Single View dated 12/19/2021; Chest Single View dated 01/03/2021; Chest Single View dated 11/27/2020; Chest Single View dated 10/09/2020; Head C Spine Mpr Wo Con dated 06/12/2021 FINDINGS: Increased volume loss in the right hemithorax. This is of uncertain etiology. Question a d ebris distended esophagus. Aspiration is a consideration. IMPRESSION: Increased volume loss in the right hemithorax of uncertain etiology. Probable patulous d ebris-filled esophagus. This could be secondary to aspiration. Consider chest CT for further evaluati on. No pneumothorax.
[2021-12-20] MEDS ORDERED: INFLUENZA VACCINE (for 6+ mo) 0.5 ML DOSE IMVAC ONE (09:00)
[2021-12-20] MEDS ORDERED: NA CHLORIDE 0.9% 500 ML IV ONE (10:00)
[2021-12-20 12:45] LABS: Bicarbonate 35 mmol/L (21-32); Glucose Level 73 mg/dL (74-106); Potassium 3.1 mmol/L (3.5-5.1); Sodium Level 143 mmol/L (136-145)
[2021-12-20 12:46] LABS: BUN Blood Urea Nitrogen < 3 mg/dL (7-18)
--- NOTE | 2021-12-20 14:28 | P.PN ---
Subjective Date of Service: 12/20/21 Chief Complaint: Hypokalemia, hypoglycemia Patient had another episode of hypoglycemia today. He has right inguinal hernia. Nursing staff report patient sometimes vomits after eating. He has a history of achalasia. Physical Examination - Vital Signs Temperature: 97.8 F Blood Pressure: 104/72 Pulse: 53 Respirations: 18 Pulse Ox (%): 100 Assessment And Plan - Current Problems (Diagnosis) (1) Hypoglycemia Current Visit: Yes Status: Acute (2) Right inguinal hernia Current Visit: Yes Status: Acute (3) Severe protein-calorie malnutrition Current Visit: Yes Status: Acute (4) Achalasia Current Visit: No Status: Chronic (5) Hypokalemia Current Visit: No Status: Acute - Plan Physical Exam General: Alert, NAD, Cachectic HEENT: Atraumatic, Mucous membr. moist/pink, Sclerae nonicteric Neck: Supple, JVD not distended Respiratory: Clear to auscultation bilaterally, Normal air movement Cardiovascular: No edema, Regular rate/rhythm, Normal S1 S2, No murmurs Gastrointestinal: Normal bowel sounds, Soft and benign, Non-distended, No tenderness Musculoskeletal: No swelling Integumentary: No rashes Neurological: Normal speech, Normal strength at 5/5 x4 extr, Cranial nerves 3-12 intact Plan: Intermittent hypoglycemia likely secondary to decreased oral intake Continue D5 normal saline. Regular diet. Double portion as tolerated. Hypoglycemia protocol. Hypokalemia likely secondary to intermittent vomiting. Continue IV potassium replacement Monitor magnesium and phosphorus level and replete as needed. Patient was supposed to follow-up with Dr. nAgeles as an outpatient for inguinal hernia repair. Will inform Dr. Angeles patient is admitted. Family request patient to be placed in a long-term care. Social service consulted.
[2021-12-20] MEDS ORDERED: HYDROXYZINE PAMOATE 50 MG PO PRN (14:34)
[2021-12-20] MEDS: MORPHINE 4 MG/ML SYR IV PRN ×2 (15:07→20:58)
[2021-12-20] MEDS ORDERED: hydrOXYzine HCL 25 MG TAB PO PRN (15:10)
[2021-12-20] MEDS: RISPERIDONE 1 MG TABLET PO SCH ×2 (15:14→20:59)
[2021-12-20] MEDS: SERTRALINE HCL 50 MG TAB PO SCH ×2 (15:14→20:59)
[2021-12-20] MEDS: POTASSIUM 25 MEQ EFFERV TAB PO SCH (15:16)
[2021-12-20] MEDS ORDERED: SERTRALINE HCL 50 MG TAB PO SCH (21:00)
[2021-12-20] MEDS: KCL 20 MEQ/100 mL IVPB 20 MEQ/100 ML BAG IV SCH (22:38)
[2021-12-20] MEDS: TRAZODONE 50 MG TABLET PO SCH (22:38)
[2021-12-21] MEDS: KCL 20 MEQ/100 mL IVPB 20 MEQ/100 ML BAG IV SCH ×2 (00:43→03:19)
[2021-12-21] MEDS: ALBUTEROL 2.5 MG/3 ML NEB SOL NEB SCH ×4 (02:15→21:05)
[2021-12-21] MEDS: MORPHINE 4 MG/ML SYR IV PRN ×4 (02:39→21:24)
[2021-12-21] MEDS: D5 0.9 NS 1,000 ML IV SCH ×3 (05:58→15:19)
[2021-12-21 07:09] LABS: Bicarbonate 30 mmol/L (21-32); Glucose Level 88 mg/dL (74-106); Magnesium 1.8 mg/dL (1.8-2.4); Potassium 3.8 mmol/L (3.5-5.1); Sodium Level 140 mmol/L (136-145)
[2021-12-21 07:11] LABS: BUN Blood Urea Nitrogen < 3 mg/dL (7-18)
[2021-12-21] MEDS ORDERED: MAGNESIUM SULFATE 1 gm IVPB 1 GM/100 ML BAG IV ONE (09:00)
[2021-12-21] MEDS ORDERED: [UNRECOGNIZED DRUG - OTHER] PO SCH (09:00)
[2021-12-21] MEDS: SERTRALINE HCL 50 MG TAB PO SCH ×2 (09:14→21:24)
[2021-12-21] MEDS: RISPERIDONE 1 MG TABLET PO SCH ×2 (09:14→21:24)
[2021-12-21] MEDS: POTASSIUM 25 MEQ EFFERV TAB PO SCH (09:14)
--- NOTE | 2021-12-21 16:53 | P.PN ---
Subjective Date of Service: 12/21/21 Chief Complaint: Hypokalemia, hypoglycemia Patient is eating well his labs does not reflect that. BUN is very low, blood sugar is borderline on D5 infusion. No change in right inguinal hernia. Patient endorsed vomiting 'a bit' after breakfast the day. Physical Examination - Vital Signs Temperature: 98.4 F Blood Pressure: 96/57 Pulse: 89 Respirations: 19 Pulse Ox (%): 97 Assessment And Plan - Current Problems (Diagnosis) (1) Hypoglycemia Current Visit: Yes Status: Acute (2) Right inguinal hernia Current Visit: Yes Status: Acute (3) Severe protein-calorie malnutrition Current Visit: Yes Status: Acute (4) Achalasia Current Visit: No Status: Chronic (5) Hypokalemia Current Visit: No Status: Acute - Plan Physical Exam General: Alert, NAD, Cachectic HEENT: Atraumatic, Mucous membr. moist/pink, Sclerae nonicteric Neck: Supple, JVD not distended Respiratory: Clear to auscultation bilaterally, Normal air movement Cardiovascular: No edema, Regular rate/rhythm, Normal S1 S2, No murmurs Gastrointestinal: Normal bowel sounds, Soft and benign, Non-distended, No tenderness Musculoskeletal: No swelling Integumentary: No rashes Neurological: Normal speech, Normal strength at 5/5 x4 extr. Plan: Intermittent hypoglycemia likely secondary to decreased oral intake Continue D5 normal saline. Regular diet. Double portion as tolerated. Hypoglycemia protocol. Hypokalemia likely secondary to intermittent vomiting. Hypokalemia corrected. Nutritional consult. Patient has a PEG tube. We will start Jevity in addition to oral feeding. Discontinue D5 infusion once blood glucose is stabilized. Monitor magnesium and phosphorus level and replete as needed. Dr. Angeles informed to follow-up with patient's hernia. Family request patient to be placed in a long-term care. Social service assisting with long-term care placement.
[2021-12-21] MEDS ORDERED: JEVITY 1.5 CAL LIQUID 1,000 ML BOT FT SCH ×2 (21:00→21:21)
[2021-12-21] MEDS: TRAZODONE 50 MG TABLET PO SCH (21:24)
[2021-12-21] MEDS: BENZONATATE 100 MG CAP PO PRN (23:29)
[2021-12-22] MEDS: ALBUTEROL 2.5 MG/3 ML NEB SOL NEB SCH ×4 (01:50→19:09)
[2021-12-22] MEDS: MORPHINE 4 MG/ML SYR IV PRN ×2 (02:28→08:21)
[2021-12-22] MEDS: D5 0.9 NS 1,000 ML IV SCH ×2 (02:29→14:40)
--- NOTE | 2021-12-22 06:11 | P.PN ---
Date of Service: 12/22/21 Subjective: No acute events overnight, patient states he has pain "all over" Tolerating tube feeds, states he takes 3 feeds a day at home Continues with some mild emesis after meals ROS: 10 point ROS as noted above, otherwise negative Physical exam GEN: Alert, oriented, NAD, thin HEENT: Normal conjunctiva, sclera anicteric CV: Regular rate and rhythm, no edema Pulm: Nonlabored respirations on room air ABD: Soft, nontender, nondistended Integumentary: No rashes Neuro: Normal speech, normal affect Problem List Hypoglycemia Severe protein calorie malnutrition Achalasia PEG tube Right inguinal hernia Hypokalemia Continue diet as tolerated. Patient with some emesis and history of achalasia. PEG tube was placed last year States he continues to eat at home and continues on tube feeds Tube feeds restarted on 12/21, tolerating well Decrease IV fluids Dietitian consulted Continue to monitor electrolytes Dr. Angeles consulted for inguinal hernia, per report, plan for outpatient follow up Patient and family agreeable/requesting reports long-term care technical services coordinator assisting with placement Patient's blood pressure remains low/borderline, transition IV opioids to p.o. Code: full Dipso: snf, likely stable for dc in 1-2 days Time Spent Managing Pts Care (In Minutes): 35
[2021-12-22 06:32] LABS: Absolute Lymphocytes (CBC) 2.3 K/uL (0.7-4.9); Hematocrit 26.8 % (39.6-49.0); Lymphocytes % 40.8 % (15.3-44.8); RBC Red Blood Cell Count 2.88 M/uL (4.33-5.43)
[2021-12-22 06:48] LABS: BUN Blood Urea Nitrogen 3 mg/dL (7-18); Bicarbonate 32 mmol/L (21-32); Glucose Level 89 mg/dL (74-106); Magnesium 1.9 mg/dL (1.8-2.4); Potassium 4.3 mmol/L (3.5-5.1); Sodium Level 140 mmol/L (136-145)
[2021-12-22] MEDS: POTASSIUM 25 MEQ EFFERV TAB PO SCH (08:24)
[2021-12-22] MEDS: SERTRALINE HCL 50 MG TAB PO SCH ×2 (08:25→20:24)
[2021-12-22] MEDS: RISPERIDONE 1 MG TABLET PO SCH ×2 (08:25→20:24)
[2021-12-22] MEDS: JEVITY 1.5 CAL LIQUID 1,000 ML BOT FT SCH ×3 (08:26→20:25)
--- NOTE | 2021-12-22 14:11 | P.CNS ---
Date of Consult: 12/22/21 PC: This 36-year-old male presented to the emergency room with hyperglycemia and hyper kalemia. HPC: I was asked to see this patient in regards to his bilateral inguinal hernias. The patient has had these for a long period of time. PSHx: Feeding tube placement PMHx: Hypokalemia, hyperglycemia, achalasia, schizophrenia, Social Hx: No known allergies Sys R: No cough, wheeze, shortness of breath. No chest pain or palpitations at the moment. His abdomen is soft, states he has been having regular bowel movements. He does have bilateral inguinal hernias. They do not prevent him from urinating or cause him any issues from that point of view. He can push it back inside and knows how to do so. O/E: Awake alert vital signs are stable HEENT: Within normal limits Chest: Air entry equal bilaterally Abd: Abdomen is soft, nontender, bilateral inguinal hernias, they are reducible and nontender at the moment [place]: Intact Impression: This patient is bilateral inguinal hernias that are direct. These are accompanied by a hydrocele. Has a feeding tube in place. Abdomen is benign, no evidence of any obstruction. Plan: Patient is currently receiving some breathing treatments. States he has been short of breath. He is undergoing placement at a group home for possible rehab. He does have bilateral inguinal hernias, they are large and easily reducible. There is no evidence of any obstruction. He would benefit at some point from repair of these, however due to their size he does have some loss of domain and could have inhibition of his respiration due to the size of these at the current time. He is more than welcome to come visit with me when he is over his acute crisis. I have explained this to the patient and he seems to be agreeable to it all.
[2021-12-22] MEDS ORDERED: FENTANYL CITR 100 MCG/2 ML IV ONE (14:16)
[2021-12-22] MEDS: TRAZODONE 50 MG TABLET PO SCH (20:23)
[2021-12-22] MEDS: TRAMADOL HCL 50 MG TAB PO PRN (20:24)
[2021-12-23] MEDS: ALBUTEROL 2.5 MG/3 ML NEB SOL NEB SCH ×4 (00:58→20:00)
[2021-12-23] MEDS: TRAMADOL HCL 50 MG TAB PO PRN (03:02)
--- NOTE | 2021-12-23 06:20 | P.PN ---
Date of Service: 12/23/21 Subjective: Continues with cough, concern for aspiration Patient made n.p.o., CT chest revealed remnant food in the esophagus Patient made n.p.o., and he was very upset ROS: 10 point ROS as noted above, otherwise negative Physical exam GEN: Alert, oriented, NAD, thin HEENT: Normal conjunctiva, sclera anicteric CV: Regular rate and rhythm, no edema Pulm: Nonlabored respirations on room air, +cough, transmitted upper airway sounds ABD: Soft, nontender, nondistended Integumentary: No rashes Neuro: Normal speech, normal affect Problem List Hypoglycemia Severe protein calorie malnutrition Achalasia PEG tube Right inguinal hernia Hypokalemia Patient with some emesis and history of achalasia. PEG tube was placed last year NPO, IVF, hold tube feeds CT chest with food particles in distal esophagus concern patient is aspirating strict NPO, patient is upset, States he continues to eat at home and continues on tube feeds GI consulted, plan for EGD in AM patient states he has appointment at [facility] on 12/31 to schedule surgery for achalasia Dr. Angeles consulted for inguinal hernia, plan for outpatient follow up Patient and family requesting long-term care financial services intern assisting with placement Patient's blood pressure remains low/borderline, h/o low blood pressure Code: full Dipso: long-term, likely stable for dc in ~2 days Time Spent Managing Pts Care (In Minutes): 35
[2021-12-23 06:55] LABS: Hematocrit 29.6 % (39.6-49.0); Lymphocytes % 21.7 % (15.3-44.8); MPV 7.5 fL (7.6-11.3); RBC Red Blood Cell Count 3.23 M/uL (4.33-5.43)
[2021-12-23 07:15] LABS: ALT/SGPT 12 U/L (12-78); AST/SGOT 10 U/L (15-37); Albumin 2.1 g/dL (3.4-5.0); Alkaline Phosphatase 78 U/L (45-117); BUN Blood Urea Nitrogen 5 mg/dL (7-18); Bicarbonate 30 mmol/L (21-32); Bilirubin Total 0.5 mg/dL (0.2-1.0); Glucose Level 95 mg/dL (74-106); Magnesium 2.1 mg/dL (1.8-2.4); Protein, Total 6.7 g/dL (6.4-8.2); Sodium Level 136 mmol/L (136-145)
[2021-12-23 07:16] LABS: Potassium 5.7 mmol/L (3.5-5.1)
--- NOTE | 2021-12-23 07:31 | RAD REPORT ---
EXAM DESCRIPTION: CT - Thorax Wo Con - 12/23/2021 7:16 am CLINICAL HISTORY: f/u opacities / fullness COMPARISON: Abdomen Pelvis W Contrast dated 10/12/2021; Chest Single View dated 12/20/2021 FINDINGS: Chest Wall: No suspicious thyroid nodules or pathologic lymphadenopathy. Lungs: Micro nodularity in the right upper and to a lesser extent the right lower lobes. A few discre te pulmonary nodules are also noted. There are some tiny cavitary nodules including 1 in the right up per lobe measuring 5 millimeters. Pleura: No significant effusions or pneumothorax. Mediastinum/kulwant: Markedly dilated esophagus containing large volume of ingested food contents. Pulmonary arteries/Aorta: Limited evaluation without contrast. No aortic aneurysm. Heart: No significant pericardial effusion. Normal heart size. Upper abdomen: Gastrostomy. Bones: No acute abnormality. All CT scans are performed using dose optimization technique as appropriate and may include automated exposure control or mA/KV adjustment according to patient size. IMPRESSION: Severely dilated esophagus containing a large volume of ingested food contents. Mild nod ularity, right greater than left with small cavitary nodules could be sequela of aspiration pneumonia /pneumonitis. Consider 3 month follow-up chest CT.
[2021-12-23] MEDS: POTASSIUM 25 MEQ EFFERV TAB PO SCH (07:57)
[2021-12-23] MEDS: SERTRALINE HCL 50 MG TAB PO SCH ×2 (07:57→21:31)
[2021-12-23] MEDS: D5 0.9 NS 1,000 ML IV SCH ×3 (07:57→17:21)
[2021-12-23] MEDS: RISPERIDONE 1 MG TABLET PO SCH ×2 (07:57→21:31)
[2021-12-23] MEDS: JEVITY 1.5 CAL LIQUID 1,000 ML BOT FT SCH ×4 (09:00→21:29)
[2021-12-23] MEDS: FENTANYL CITR 100 MCG/2 ML IV PRN ×3 (10:26→23:58)
[2021-12-23] MEDS: NICOTINE 21 MG/PAT TD SCH (13:07)
[2021-12-23] MEDS: TRAZODONE 50 MG TABLET PO SCH (21:31)
[2021-12-24] MEDS: D5 0.9 NS 1,000 ML IV SCH ×2 (01:11→09:47)
[2021-12-24] MEDS: ALBUTEROL 2.5 MG/3 ML NEB SOL NEB SCH ×3 (02:10→14:00)
[2021-12-24] MEDS: FENTANYL CITR 100 MCG/2 ML IV PRN ×2 (06:06→10:03)
--- NOTE | 2021-12-24 06:12 | P.PN ---
Date of Service: 12/24/21 Subjective: ROS: 10 point ROS as noted above, otherwise negative Physical exam GEN: Alert, oriented, NAD, thin HEENT: Normal conjunctiva, sclera anicteric CV: Regular rate and rhythm, no edema Pulm: Nonlabored respirations on room air, +cough, transmitted upper airway sounds ABD: Soft, nontender, nondistended Integumentary: No rashes Neuro: Normal speech, normal affect Problem List Hypoglycemia Severe protein calorie malnutrition Achalasia PEG tube Right inguinal hernia Hypokalemia Patient with some emesis and history of achalasia. PEG tube was placed last year NPO, IVF, hold tube feeds CT chest with food particles in distal esophagus concern patient is aspirating strict NPO, patient is upset, States he continues to eat at home and continues on tube feeds GI consulted, plan for EGD in AM patient states he has appointment at [facility] on 12/31 to schedule surgery for achalasia Dr. Angeles consulted for inguinal hernia, plan for outpatient follow up Patient and family requesting long-term care technical services analyst assisting with placement Patient's blood pressure remains low/borderline, h/o low blood pressure Code: full Dipso: longterm, likely stable for dc in ~2 days Time Spent Managing Pts Care (In Minutes): 35
[2021-12-24 07:38] LABS: Absolute Lymphocytes (CBC) 0.8 K/uL (0.7-4.9); Hematocrit 28.6 % (39.6-49.0); Lymphocytes % 19.5 % (15.3-44.8); MPV 8.1 fL (7.6-11.3); RBC Red Blood Cell Count 3.08 M/uL (4.33-5.43)
[2021-12-24] MEDS ORDERED: propofoL 200 MG/20 ML VIAL IV ONE (07:45)
[2021-12-24] MEDS ORDERED: LIDOCAINE 1% MPF 5 ML VIAL ONE (07:45)
[2021-12-24] MEDS ORDERED: MIDAZOLAM HCL 2 MG/2 ML INJ ONE (07:46)
[2021-12-24 07:47] LABS: ALT/SGPT 11 U/L (12-78); AST/SGOT 10 U/L (15-37); Alkaline Phosphatase 71 U/L (45-117); BUN Blood Urea Nitrogen 6 mg/dL (7-18); Bicarbonate 27 mmol/L (21-32); Bilirubin Total 0.3 mg/dL (0.2-1.0); Glucose Level 93 mg/dL (74-106); Magnesium 2.3 mg/dL (1.8-2.4); Potassium 5.4 mmol/L (3.5-5.1); Protein, Total 6.5 g/dL (6.4-8.2); Sodium Level 139 mmol/L (136-145)
[2021-12-24] MEDS ORDERED: Phenylephrine HCl 10 MG/ML 1 ML VIAL ONE (08:14)
[2021-12-24] MEDS: MORPHINE 4 MG/ML SYR ONE ×2 (08:49→09:08)
--- NOTE | 2021-12-24 08:53 | ENDO RPT ---
[address], [address] EGD PROCEDURE REPORT EXAM DATE: 12/24/2021 PATIENT NAME: Tahir Ag MR#: [id number] BIRTHDATE: 1985 ATTENDING: Ministerio Riley Dr STATUS: inpatient - [facility] ANSWERER: Yane Ram RN INDICATIONS: The patient is a 36 yr old Male here for an EGD due to dysphagia and foreign body (retained food in esophagus noted on CT chest) PROCEDURE PERFORMED: EGD with foreign body removal MEDICATIONS: Per Anesthesia. TOPICAL ANESTHETIC: none CONSENT: The patient understands the risks and benefits of the procedure and understands that these risks include, but are not limited to: sedation, allergic reaction, infection, perforation and/or bleeding. Alternative means of evaluation and treatment include, among others: physical exam, x-rays, and/or surgical intervention. The patient elects to proceed with this endoscopic procedure. DESCRIPTION OF PROCEDURE: During intra-op preparation period all mechanical medical equipment was checked for proper function. Hand hygiene and appropriate measures for infection prevention was taken. Procedure, possible complications, and alternatives including but not limited to the possibility of bleeding, perforation, tear, infection, sepsis, need for surgery, need for blood transfusion, and anesthesia related complications were explained to the patient. After the risks, benefits and alternatives of the procedure were thoroughly explained, Informed consent was verified, confirmed and timeout was successfully executed by the treatment team. The patient was placed in the left lateral position. The patient was anesthetized with topical anesthesia. Through the anesthetized oropharyngeal area, the scope was passed without any difficulty. The EG-[id number] ([id number]) endoscope was introduced through the mouth and advanced to the esophagus mid. Retroflexion was not performed. The gastroscope was then slowly withdrawn and removed. Large amount of semi-soft / partially digested mushy retained food was present in the total esophagus. The foreign body was removed with serial Somers net retrievals. ADVERSE EVENTS: There were no complications. IMPRESSIONS: Large amount of semi-soft / partially digested mushy retained food in the total esophagus, s/p clear overtube placement and partial removal of food with Somers net retrievals. Unable to push through to stomach with marked firm resistance in the lower esophagus / GE junction area with bradycardia to 45 from HR 80 (IV Robinol given with recovery). RECOMMENDATIONS: 1. strict NPO 2. keep prior surgery appointment at [facility] for achalasia surgery (not offered here at current hospital) 3. continue using PEG tube for enteral feedings REPEAT EXAM: Ministerio Riley Dr eSigned: Ministerio Riley Dr 12/24/2021 8:52 AM cc: CPT CODES: ICD9 CODES: PATIENT NAME: Tahir Ag MR#: [id number]
[2021-12-24 08:57] VITALS: O2SAT 100
[2021-12-24] MEDS ORDERED: GLYCOPYRROLATE 0.2 MG/ML SYR ONE (09:41)
[2021-12-24] MEDS: RISPERIDONE 1 MG TABLET PO SCH (10:03)
[2021-12-24] MEDS: NICOTINE 21 MG/PAT TD SCH (10:03)
[2021-12-24] MEDS: SERTRALINE HCL 50 MG TAB PO SCH (10:03)
[2021-12-24] MEDS: POTASSIUM 25 MEQ EFFERV TAB PO SCH (10:08)
--- NOTE | 2021-12-24 11:57 | CON ---
Date of Consultation: 12/24/2021 Reason For Consultation: Dysphagia secondary to achalasia with food noted in the esophagus on CT [address]. History Of Present Illness: The patient is a 36-year-old male with history of achal krzysztof, schizophrenia, bipolar disease, diabetes, hypertension, PEG tube placement with protein-calorie malnutrition. The patient admitted to the hospital due to hyperkalemia, hypoglycemia, and right ing uinal hernia. Surgery saw the patient and right inguinal hernia to repair. CTA chest was performed, which revealed food retained in the esophagus. The patient has been eating as outpatient and as an inpatient regular trays of regular diet food; however, for now CT scan showed he had food in his esop hagus. He reports having an office visit planned for achalasia on December 31 of this month and Surge ry planned for achalasia on January 14 of this month. He states he was diagnosed with achalasia year ago at [facility] and has taken over a year for him to schedule surgery to get this taken care of; however , with the CT finding of food in esophagus, it appears that the achalasia has advanced to the point w here now food would not go through at all. Past Medical History: Significant for achalasia, diabetes, hypertension, schizophrenia, bipolar diso rder, PEG tube placement, protein-calorie malnutrition, right inguinal hernia. Medications: At home include gabapentin, Jevity, , midodrine, , Risperdal, Effex or, [place], . Allergies: NKDA. Social History: Single. No children. Positive for tobacco. No alcohol. Family History: Father alive and well. Mother alive and well, has diabetes. Review of Systems: The patient has dysphagia with right inguinal hernia which needs repair, protein-calorie malnutrition . He has schizophrenia, bipolar disorder, depression, ronny. He denies any melena, hematochezia, he matemesis, coffee-ground emesis, hematuria, dysuria, polyuria, polydipsia, change in bowel habits, di arrhea, constipation, chest pain, shortness of breath, seizure, syncope, lower extremity edema, muscl e aches, joint aches, backaches. Physical Examination: Vital Signs: The patient is 5 feet 6 inches, 104 pounds, BMI of 16.8 kg/m2. Temperature of 98 degre es Fahrenheit, pulse 81, respirations 16, blood pressure 101/74, O2 saturation 100%. General: He is a thin male, lying in bed, in no acute distress. Very thin, wavy hair. HEENT: Normocephalic, atraumatic. Anicteric. Pupils equal, round, and reactive to light. Extraocu lar movements are intact. Oropharynx clear. Neck: Supple. No masses. Respirations: Clear to auscultation bilaterally. Cardiac: Regular rate and rhythm. Gastrointestinal: Positive bowel sounds. Soft, nondistended. No hepatosplenomegaly. Somewhat thin . PEG tube in place in the left upper quadrant. Extremities: No clubbing, cyanosis, or edema. 2+ pulses. Slight muscle wasting. Neuro: Alert and oriented x3. Grossly nonfocal. 5/5 motor. Sensation intact to light touch. Laboratory Data: The patient has a white count of 4.0, hemoglobin of 9.4, hematocrit 28.6, MCV of 93 , platelet count 266, polys of 67%, lymphocytes 20%, monocytes 11%, eosinophils 2%. Sodium 139, pota ssium 5.4, chloride 109, bicarb 27, BUN of 6, creatinine of 0.5, glucose 93, calcium 8.2, magnesium 2 .3, total bilirubin 0.3, AST of 10, ALT of 11, alkaline phosphatase 71, total protein 6.5, albumin 2. 0. TSH 2.11. Influenza A and B negative. COVID-19 testing is negative as well. CT chest revealed retained food in the esophagus. Impression: 1.Dysphagia secondary to achalasia. Has had diagnosis of achalasia over year ago at [facility], has appoi ntment on December 31 of this year for office visit for achalasia and then Surgery appointment for gin singletary for achalasia on January 14, 2022 at [facility]. 2.Esophageal food impaction, retained food noted on CTA chest, probably a large amount on CT as note d. Radiology noted this on CT report. 3.History of diabetes, hypertension, schizophrenia, bipolar disorder. Achalasia was diagnosed over a year ago at [facility], PEG tube placement for protein-calorie malnutrition and right inguinal hernia. Recommendations: 1.EGD with esophageal food removal as possible. 2.Keep the patient n.p.o. 3.Use PEG tube for enteral nutrition. 4.IV fluids and water boluses via PEG tube. 5.The patient to follow at [facility] for office visit on the and achalasia surgery on January 14 of this year. STEVEN/BO Voice ID: [id number] Report ID: [id number]
[2021-12-24 12:30] VITALS: BP 85/55; TEMP 97
--- NOTE | 2021-12-24 18:28 | P.DS ---
Admission Date: 12/19/21 Discharge Date: 12/24/21 Disposition: AMA-LEFT AGAINST MEDICAL ADVIC Discharge Condition: FAIR Reason for Admission: Hypokalemia, hypoglycemia Consultations: GI - Dr. Riley General Surgery - Dr. Angeles Procedures: Problem List Mild Hypoglycemia Severe protein calorie malnutrition Achalasia Aspiration PEG tube Right inguinal hernia Hypokalemia Brief History of Present Illness: 36-year-old with a history of inguinal hernia, achalasia and schizophrenia with protein malnutrition presented to the emergency department with pain from inguinal herniation. Blood work done in the emergency department demonstrated hyperglycemia and hypokalemia. He denies any history of diabetes and does not take any oral hypoglycemics or insulin. ED provider attempted manual reduction of his right inguinal hernia. Patient is hospitalized for further management. Hospital Course: Patient was admitted and treated with IV fluids and diet was advanced. He began to have coughing and emesis episodes after eating. Chest x-ray revealed some thickening of his lower esophagus. A CT chest was obtained and revealed remnant food particles in his esophagus. GI was consulted, patient underwent EGD and only partial food remnants were able to be removed, the rest were to soft consistency to grab. Patient had been made strict n.p.o., which she became very upset and agitated about. He stated he eats at home and is hungry, wants to eat. Discussed the reasoning of why, and that he would continue to get tube feeds through his PEG tube, but cannot/should not take anything p.o. Patient initially created, and then a few minutes later subsided agitated. He reportedly called nutrition services multiple times trying to get food. Discussed that he needs more definitive treatment for his achalasia. He stated he has an appointment with the GI doctor [facility] on 12/31 to schedule a procedure. Discussed that we can try to transfer him to [facility], but he would still need to remain n.p.o.. Risk of aspiration, infection, and even were explained to the patient. He expressed understanding. Patient decided to leave AGAINST MEDICAL ADVICE. Family was called and updated on the situation, they were advised that he should not take anything by p.o. Regards to his inguinal hernia, this is easily reducible. He is to continue the ongoing plan of follow-up with Dr. Angeles in the office. Vital Signs/Physical Exam: Physical exam GEN: Alert, oriented, NAD, thin HEENT: Normal conjunctiva, sclera anicteric CV: Regular rate and rhythm, no edema Pulm: Nonlabored respirations on room air, +cough, transmitted upper airway sounds ABD: Soft, nontender, nondistended Integumentary: No rashes Neuro: Normal speech, agitated Temp Pulse Resp BP Pulse Ox 97.0 F 66 16 85/55 L 100 12/24/21 12:00 12/24/21 12:00 12/24/21 12:00 12/24/21 12:00 12/24/21 12:00 Laboratory Data at Discharge: WBC 4.00 K/uL (4.3-10.9) L 12/24/21 07:08 Hgb 9.4 g/dL (13.6-17.9) L 12/24/21 07:08 Hct 28.6 % (39.6-49.0) L 12/24/21 07:08 Plt Count 266 K/uL (152-406) 12/24/21 07:08 Sodium 139 mmol/L (136-145) 12/24/21 07:08 Potassium 5.4 mmol/L (3.5-5.1) H 12/24/21 07:08 BUN 6 mg/dL (7-18) L 12/24/21 07:08 Creatinine 0.50 mg/dL (0.55-1.3) L 12/24/21 07:08 Glucose 93 mg/dL (74-106) 12/24/21 07:08 Phosphorus 2.7 mg/dL (2.5-4.9) 12/20/21 03:54 Magnesium 2.3 mg/dL (1.8-2.4) 12/24/21 07:08 Total Bilirubin 0.3 mg/dL (0.2-1.0) 12/24/21 07:08 AST 10 U/L (15-37) L 12/24/21 07:08 ALT 11 U/L (12-78) L 12/24/21 07:08 Alkaline Phosphatase 71 U/L (45-117) 12/24/21 07:08 Home Medications: Potassium Bicarbonate/Cit AC [Effer-K 20 Meq Tablet Eff] 20 meq PO DAILY 30 Days #30 tablet.eff 10/28/21 Risperidone [Risperdal] 1 mg PO BID 12/19/21 Sertraline [Zoloft*] 50 mg PO BID 12/19/21 Trazodone HCl 50 mg PO BEDTIME 12/19/21 hydrOXYzine pamoate [Hydroxyzine Pamoate] 50 mg PO Q6HP PRN 12/19/21 Followup: NONE,NONE [Primary Care Provider] - Time spent managing pt's care (in minutes): 50
== END 2021-12-24 13:30 | disposition left against medical advice (07) | DRG 393 ==
LOC: ER 09:35 → ERHOLD 12:51 → 2ND 15:02
PROVIDERS: ADMIT Internal Medicine; ATTEND Internal Medicine
PROC: 0DC58ZZ Extirpation of Matter from Esophagus, Via Natural or Artificial Opening Endoscopic (ICD-10-PCS; principal; 2021-12-24 07:30)
DX: T18.128A Food in esophagus causing other injury, initial encounter (principal); E43 Unspecified severe protein-calorie malnutrition; Z68.1 Body mass index [BMI] 19.9 or less, adult; E11.649 Type 2 diabetes mellitus with hypoglycemia without coma; K40.90 Unilateral inguinal hernia, without obstruction or gangrene, not specified as recurrent; E87.6 Hypokalemia; K22.0 Achalasia of cardia; F20.9 Schizophrenia, unspecified; I10 Essential (primary) hypertension; R13.19 Other dysphagia; Z93.1 Gastrostomy status; Z23 Encounter for immunization; Z53.29 Procedure and treatment not carried out because of patient's decision for other reasons; Z20.822 Contact with and (suspected) exposure to COVID-19
CPT/HCPCS: 0240U; 36415; 71045; 71250; 80048; 80053; 82947; 83735; 84100; 84132; 84443; 85025; 90471; 94640; 97161; 99285; J2250; J2270; J2370; J2405; J2704; J3010; J3475; J3480; J7030; J7040; J7042; Q2035

== ENCOUNTER 2021-12-26 19:51 | Emergency (ER) | payer OTHER ==
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
[2021-12-26] MEDS ORDERED: NA CHLORIDE 0.9% 1,000 ML ONE (20:26)
[2021-12-26] MEDS ORDERED: FENTANYL CITR 100 MCG/2 ML ONE ×2 (20:26→21:18)
--- NOTE | 2021-12-26 21:11 | EDPHYS ---
Physician Documentation [facility] Name: Tahir Ag Jr Age: 36 yrs Sex: Male : 1985 Arrival Date: 12/26/2021 Time: 19:53 Bed 5 Private MD: ED Physician Alan Nguyễn HPI: 12/26 20:05 This 36 yrs old Black Male presents to ER via EMS with complaints of Abdominal Pain - pm1 Hernia Pain. 20:05 The patient presents with abdominal pain from right inguinal hernia. Onset: The pm1 symptoms/episode began/occurred today. The symptoms do not radiate. Associated signs and symptoms: none. Pertinent negatives: nausea, vomiting, and diarrhea, dysuria, fever. Modifying factors: The symptoms are alleviated by nothing, the symptoms are aggravated by nothing. Severity of pain: in the emergency department the pain is actually worse. The patient has experienced similar episodes in the past, multiple times, chronically. The patient has not recently seen a physician, has an appointment scheduled, in 3 day(s), with surgeon for his inguinal hernia. Historical: - Allergies: 20:14 No Known Allergies; ll3 - Home Meds: 20:14 Depakote Oral [Active]; Hydrocodone-Acetaminophen 5/500 Oral [Active]; Risperdal Oral ll3 [Active]; - PMHx: 20:14 Bipolar disorder; Diabetes - NIDDM; Hernia; Hypertension; Schizophrenia; ll3 - PSHx: 20:14 None; ll3 - Immunization history:: Client reports receiving the 2nd dose of the Covid vaccine. - Social history:: Smoking status: Patient reports the use of cigarette tobacco products, smokes one pack cigarettes per day. ROS: 20:05 Constitutional: Negative for fever, chills, and weight loss, Cardiovascular: Negative pm1 for chest pain, palpitations, and edema, Respiratory: Negative for shortness of breath, cough, wheezing, and pleuritic chest pain. 20:05 Back: Negative for injury and pain, : Negative for injury, bleeding, discharge, and swelling, MS/Extremity: Negative for injury and deformity, Skin: Negative for injury, rash, and discoloration, Neuro: Negative for headache, weakness, numbness, tingling, and seizure. 20:05 Abdomen/GI: Positive for abdominal pain, Negative for nausea, vomiting, and diarrhea, constipation. 20:05 All other systems are negative. Exam: 20:05 Constitutional: This is a well developed, well nourished patient who is awake, alert, pm1 and in no acute distress. Head/Face: Normocephalic, atraumatic. 20:05 Back: No spinal tenderness. No costovertebral tenderness. Full range of motion. Skin: Warm, dry with normal turgor. Normal color with no rashes, no lesions, and no evidence of cellulitis. MS/ Extremity: Pulses equal, no cyanosis. Neurovascular intact. Full, normal range of motion. 20:05 Eyes: Exam is negative for acute changes, Extraocular movements: no acute changes, Conjunctiva: no acute changes, no injection, Sclera: no acute changes, icterus, is not appreciated. 20:05 ENT: Exam is negative for Mouth: no acute changes, Lips: normal, moist, Oral mucosa: normal, pink and intact, moist. 20:05 Cardiovascular: Exam negative for acute changes, Rate: normal, Rhythm: regular, Pulses: no pulse deficits are appreciated. 20:05 Respiratory: Exam negative for acute changes, respiratory distress, shortness of breath, Breath sounds: are clear throughout. 20:05 Abdomen/GI: Palpation: abdomen is soft and non-tender, in all quadrants, Hernia: noted in the right inguinal area, incarceration, is not appreciated, tenderness, is not appreciated. 20:05 Neuro: Exam negative for acute changes, Orientation: is normal, Mentation: is normal, Motor: is normal, moves all fours. Vital Signs: 20:11 BP 90 / 67; Pulse 94; Resp 16; Temp 98.7; Pulse Ox 98% on R/A; Weight 47.63 kg (R); ll3 Height 5 ft. 5 in. (165.10 cm) (R); Pain 10/10; 21:07 BP 86 / 67; Pulse 66; Resp 15; Pulse Ox 100% on R/A; ll3 21:27 BP 101 / 73; Pulse 71; Resp 16; Pulse Ox 100% on R/A; ll3 20:11 Body Mass Index 17.47 (47.63 kg, 165.10 cm) ll3 Procedures: 21:08 Reduction: of the Right inguinal hernia, using Slow steady pressure while in pm1 trendelberg position, Patient tolerated well. Bilateral testicles palpable after complete reduction of hernia. MDM: 19:58 Patient medically screened. pm1 21:10 Data reviewed: vital signs. Data interpreted: Pulse oximetry: on room air is 100 %. pm1 Interpretation: normal. 12/26 20:05 Order name: IV Saline Lock; Complete Time: 20:36 pm1 Administered Medications: 20:32 Drug: fentaNYL (PF) 25 mcg Route: IVP; Site: right antecubital; ll3 21:19 Follow up: Response: No adverse reaction; Pain is decreased ll3 20:34 Drug: NS 0.9% 1000 ml Route: IV; Rate: 1000 ml; Site: right antecubital; ll3 21:31 Follow up: Response: No adverse reaction; IV Status: IV infiltrated; IV Intake: 800ml ll3 21:18 Drug: fentaNYL (PF) 25 mcg Route: IVP; Site: right antecubital; ll3 21:31 Follow up: Response: No adverse reaction; Pain is decreased ll3 Disposition: 12/27 01:32 Co-signature as Attending Physician, Alan Nguyễn MD. [facility] Disposition Summary: 12/26/21 21:11 Discharge Ordered Location: Home pm1 Problem: new pm1 Symptoms: have improved pm1 Condition: Stable pm1 Diagnosis - Unilateral inguinal hernia, without obstruction or gangrene, recurrent - reduced pm1 Followup: pm1 - With: Emergency Department - When: As needed - Reason: Worsening of condition Followup: pm1 - With: Private Physician - When: 2 - 3 days - Reason: Recheck today's complaints, Continuance of care, Re-evaluation by your physician Discharge Instructions: - Discharge Summary Sheet pm1 - Inguinal Hernia, Adult, [id number] pm1 Forms: - Medication Reconciliation Form pm1 - Thank You Letter pm1 - Antibiotic Education pm1 - Prescription Opioid Use pm1 Signatures: Elgin Leal, PUBLIC RELATIONS REPRESENTATIVE PUBLIC RELATIONS REPRESENTATIVE pm1 Alan Nguyễn MD MD [facility] Hung Mclean RN RN 3 Corrections: (The following items were deleted from the chart) 12/26 21:12 21:08 Reduction: of the Right inguinal hernia, using Slow steady pressure while in pm1 trendelberg position, Patient tolerated well. pm1 21:15 20:05 Associated signs and symptoms: none. Pertinent negatives: nausea, vomiting, and pm1 diarrhea, dysuria, fever, pm1
--- NOTE | 2021-12-26 21:11 | ER ---
Nurse's Notes [facility] Name: Tahir Ag Jr Age: 36 yrs Sex: Male : 1985 Arrival Date: 12/26/2021 Time: 19:53 Bed 5 Private MD: Diagnosis: Unilateral inguinal hernia, without obstruction or gangrene, recurrent-reduced Presentation: 12/26 20:11 Chief complaint: EMS states: EMS toned out for groin pain 08/02, pt states he has a ll3 hernia, states he has an appointment with a surgeon on Tuesday next week. Coronavirus screen: Vaccine status: Patient reports receiving the 2nd dose of the covid vaccine. At this time, the client does not indicate any symptoms associated with coronavirus-19. Ebola Screen: No symptoms or risks identified at this time. Initial Sepsis Screen: Does the patient meet any 2 criteria? No. Patient's initial sepsis screen is negative. Does the patient have a suspected source of infection? No. Patient's initial sepsis screen is negative. Risk Assessment: Do you want to hurt yourself or someone else? Patient reports no desire to harm self or others. Onset of symptoms is unknown. 20:11 Method Of Arrival: EMS: [facility] ll3 20:11 Acuity: MARITNA 3 ll3 Triage Assessment: 20:14 General: Appears comfortable, unkempt, malnourished, Behavior is Smells of. Pain: ll3 Complains of pain in groin Pain currently is 10 out of 10 on a pain scale. Neuro: Level of Consciousness is awake, alert, obeys commands, Oriented to person, place, time, situation. Cardiovascular: Patient's skin is warm and dry. Respiratory: Respiratory effort is even, unlabored, Respiratory pattern is regular, symmetrical. GI: PEG tube in place, clamped. to gravity drainage. States only uses occasionally Right groin hernia noted. Derm: Skin is pink, warm \T\ dry. Historical: - Allergies: 20:14 No Known Allergies; ll3 - Home Meds: 20:14 Depakote Oral [Active]; Hydrocodone-Acetaminophen 5/500 Oral [Active]; Risperdal Oral ll3 [Active]; - PMHx: 20:14 Bipolar disorder; Diabetes - NIDDM; Hernia; Hypertension; Schizophrenia; ll3 - PSHx: 20:14 None; ll3 - Immunization history:: Client reports receiving the 2nd dose of the Covid vaccine. - Social history:: Smoking status: Patient reports the use of cigarette tobacco products, smokes one pack cigarettes per day. Screenin:35 Abuse screen: Denies threats or abuse. Nutritional screening: Looks malnourished . ll3 Tuberculosis screening: No symptoms or risk factors identified. Fall Risk IV access (20 points). Ambulatory Aid- Crutches/Cane/Walker (15 pts). Gait- Normal/Bed Rest/Wheelchair (0 pts) Mental Status- Oriented to own ability (0 pts). Total Durham Fall Scale indicates Low Risk Score (25-44 pts). Fall prevention measures have been instituted. Side Rails Up X 2 Frequent Obs/Assesments occuring. Assessment: 20:19 General: See triage assessment. ll3 20:46 GI: Bowel sounds present X 4 quads. Abd is soft and non tender X 4 quads. ll3 21:04 Reassessment: ERP at bedside reducing hernia, tolerated well. ll3 Vital Signs: 20:11 BP 90 / 67; Pulse 94; Resp 16; Temp 98.7; Pulse Ox 98% on R/A; Weight 47.63 kg (R); ll3 Height 5 ft. 5 in. (165.10 cm) (R); Pain 10/10; 21:07 BP 86 / 67; Pulse 66; Resp 15; Pulse Ox 100% on R/A; ll3 21:27 BP 101 / 73; Pulse 71; Resp 16; Pulse Ox 100% on R/A; ll3 20:11 Body Mass Index 17.47 (47.63 kg, 165.10 cm) ll3 ED Course: 19:53 Patient arrived in ED. lp1 19:54 Elgin Leal NP is PHCP. pm1 19:54 Alan Nguyễn MD is Attending Physician. pm1 20:05 Keven Hope RN is Primary Nurse. as6 20:14 Triage completed. ll3 20:14 Arm band placed on Patient placed in an exam room, on a stretcher, on pulse oximetry. ll3 20:35 Patient has correct armband on for positive identification. Placed in gown. Bed in low ll3 position. Call light in reach. Side rails up X 1. 20:35 Inserted saline lock: 22 gauge in right antecubital area, using aseptic technique. ll3 21:27 No provider procedures requiring assistance completed. IV discontinued, intact, ll3 bleeding controlled, Pressure dressing applied, IV infiltrated, IV D/Cd intact, no redness, pressure dressing applied. Administered Medications: 20:32 Drug: fentaNYL (PF) 25 mcg Route: IVP; Site: right antecubital; ll3 21:19 Follow up: Response: No adverse reaction; Pain is decreased ll3 20:34 Drug: NS 0.9% 1000 ml Route: IV; Rate: 1000 ml; Site: right antecubital; ll3 21:31 Follow up: Response: No adverse reaction; IV Status: IV infiltrated; IV Intake: 800ml ll3 21:18 Drug: fentaNYL (PF) 25 mcg Route: IVP; Site: right antecubital; ll3 21:31 Follow up: Response: No adverse reaction; Pain is decreased ll3 Intake: 21:31 IV: 800ml; Total: 800ml. ll3 Outcome: 21:11 Discharge ordered by . pm1 21:27 Discharged to home ambulatory, with family. ll3 21:27 Condition: stable 21:27 Discharge instructions given to patient, Instructed on discharge instructions, follow up and referral plans. Demonstrated understanding of instructions, follow-up care. 21:30 Patient left the ED. ll3 Signatures: Miladis Sinclair RN RN lp1 Elgin Leal, [employer] pm1 Keven Hope RN RN as6 Hung Mclean RN RN ll3
[2021-12-26 21:35] VITALS: TEMP 98.7
[2021-12-26 21:37] VITALS: O2SAT 100
[2021-12-26 21:38] VITALS: BP 101/73
== END 2021-12-26 21:30 | disposition home or self-care (01) ==
LOC: ER 19:51
DX: K40.91 Unilateral inguinal hernia, without obstruction or gangrene, recurrent (principal); I10 Essential (primary) hypertension; F17.210 Nicotine dependence, cigarettes, uncomplicated; F20.9 Schizophrenia, unspecified
CPT/HCPCS: 96361; 96374; 99284; J3010 ×2; J7030

== ENCOUNTER 2021-12-29 11:21 | Emergency (ER) | payer OTHER ==
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
[2021-12-29] MEDS ORDERED: FENTANYL CITR 100 MCG/2 ML ONE (11:41)
--- NOTE | 2021-12-29 12:17 | RAD REPORT ---
EXAM DESCRIPTION: RAD - Chest Single View - 12/29/2021 12:05 pm CLINICAL HISTORY: COUGH Chest pain. COMPARISON: Chest Single View dated 12/20/2021; Chest Single View dated 12/19/2021; Chest Single View dated 01/03/2021; Chest Single View dated 11/27/2020; Thorax Wo Con dated 12/23/2021 FINDINGS: Portable technique limits examination quality. The lungs are grossly clear. The heart is normal in size. 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 IMPRESSION: No acute intrathoracic process suspected.
[2021-12-29 13:26] LABS: SARS-COV-2 RT PCR NEGATIVE (NEGATIVE)
--- NOTE | 2021-12-29 13:33 | EDPHYS ---
Physician Documentation [facility] Name: Tahir Ag Jr Age: 36 yrs Sex: Male : 1985 Arrival Date: 12/29/2021 Time: 11:22 Bed 13 Private MD: ED Physician Omari Wang HPI: 12/29 12:14 This 36 yrs old Black Male presents to ER via EMS with complaints of HERNIA, cough. rn 12:14 The patient or guardian reports cough, that is intermittent, described as mild, with no rn sputum. Onset: The symptoms/episode began/occurred 2 day(s) ago. Severity of symptoms: At their worst the symptoms were mild, in the emergency department the symptoms are unchanged. Modifying factors: The symptoms are alleviated by nothing, the symptoms are aggravated by nothing. Associated signs and symptoms: Pertinent positives: rhinorrhea, Pertinent negatives: chest pain, fever. The patient has not experienced similar symptoms in the past. The patient has been recently seen at the [facility] Emergency Department. Pt reports here for 2 reasons, is having right inguinal hernia pain again, no gross changes, has appt with surgeon in 2 days. Is having normal bowel movements, no blood, no fever. No vomiting. Reports identical to previous visits when comes in, gets pain medication, then goes home. Denies new pain or change in symptoms. Also reports would like to be evaluated for pneumonia, has had 2 weeks of cough, is active smoker, no sob. Also reports runny nose.. Historical: - Allergies: 12:10 No Known Allergies; bp - Home Meds: 12:10 Risperdal Oral [Active]; Depakote Oral [Active]; Hydrocodone-Acetaminophen 5/500 Oral bp [Active]; - PMHx: 12:10 Schizophrenia; Hypertension; Hernia; Diabetes - NIDDM; Bipolar disorder; bp - Immunization history:: Adult Immunizations unknown. - Social history:: Smoking status: Patient reports the use of cigarette tobacco products, unknown amount. - Family history:: not pertinent. - Hospitalizations: : No recent hospitalization is reported. ROS: 12:14 Constitutional: Negative for fever, chills, and weight loss, Eyes: Negative for injury, rn pain, redness, and discharge, Neck: Negative for injury, pain, and swelling, Cardiovascular: Negative for chest pain, palpitations, and edema, Respiratory: + cough, neg for sob. Abdomen/GI: Negative for abdominal pain, nausea, vomiting, diarrhea, and constipation, Back: Negative for injury and pain, : + right inguinal hernia MS/Extremity: Negative for injury and deformity, Skin: Negative for injury, rash, and discoloration, Neuro: Negative for headache, weakness, numbness, tingling, and seizure. Exam: 12:14 Constitutional: Thin male, no acute distress. Head/Face: Normocephalic, atraumatic. rn Eyes: Periorbital areas with no swelling, redness, or edema. Cardiovascular: Regular rate and rhythm. No pulse deficits. Respiratory: Speaking full sentences, unlabored. No increased work of breathing, no retractions or nasal flaring. Abdomen/GI: Soft, non-tender Male : + large right inguinal hernia without skin changes, partially reducible, no signs of strangulation Skin: Warm, dry MS/ Extremity: Pulses equal, no cyanosis. Neuro: Awake and alert, GCS 15 Vital Signs: 11:28 BP 115 / 82; Pulse 78; Resp 18; Temp 97.7; Pulse Ox 100% ; cs9 13:00 BP 91 / 69; Pulse 58; Resp 18; Pulse Ox 97% on R/A; ss7 MDM: 11:25 Patient medically screened. rn 13:31 Differential Diagnosis: Bronchitis Influenza Upper Respiratory Infection Viral Syndrome rn Pneumonia. Data reviewed: vital signs, nurses notes, old medical records, lab test result(s), radiologic studies, plain films, and as a result, I will discharge patient. Counseling: I had a detailed discussion with the patient and/or guardian regarding: the historical points, exam findings, and any diagnostic results supporting the discharge/admit diagnosis, lab results, radiology results, the need for outpatient follow up, to return to the emergency department if symptoms worsen or persist or if there are any questions or concerns that arise at home. Response to treatment: the patient's symptoms have mildly improved after treatment, and as a result, I will discharge patient. Special discussion: I discussed with the patient/guardian in detail that at this point there is no indication for admission to the hospital. It is understood, however, that if the symptoms persist or worsen the patient needs to return immediately for re-evaluation. 13:32 Counseling: I had a detailed discussion with the patient and/or guardian regarding: rn smoking cessation. 12/29 11:26 Order name: COVID-19/FLU A+B (Document "Date of Onset" if Symptomatic); Complete Time: rn 13:31 12/29 11:25 Order name: XRAY Chest (1 view); Complete Time: 12:21 rn Administered Medications: 11:40 Drug: fentaNYL (PF) 50 mcg Route: IM; Site: right deltoid; bp 12:13 Follow up: Response: No adverse reaction; Pain is decreased bp 14:00 Drug: [place] (HYDROcodone-acetaminophen) 10 mg-325 mg 1 tabs Route: PO; ss7 Disposition Summary: 12/29/21 13:32 Discharge Ordered Location: Home rn Problem: chronic rn Symptoms: have improved rn Condition: Stable rn Diagnosis - Unilateral inguinal hernia, without obstruction or gangrene, recurrent rn - Cough rn - Other specified diseases of upper respiratory tract rn Followup: rn - With: Private Physician - When: As needed - Reason: Recheck today's complaints, Re-evaluation by your physician Discharge Instructions: - Discharge Summary Sheet rn - Hernia, Adult rn - Inguinal Hernia, Adult, [id number] rn - Cough, Adult rn Forms: - Medication Reconciliation Form rn - Thank You Letter rn - Antibiotic manager rn case - Prescription Opioid Use rn Signatures: Dispatcher [employer] Omari Bass MD MD rn Peltier, Brian, RN Mee Spivey RN RN ss7
--- NOTE | 2021-12-29 13:33 | ER ---
Nurse's Notes [facility] Name: Tahir Ag Jr Age: 36 yrs Sex: Male : 1985 Arrival Date: 12/29/2021 Time: 11:22 Bed 13 Private MD: Diagnosis: Unilateral inguinal hernia, without obstruction or gangrene, recurrent;Cough;Other specified diseases of upper respiratory tract Presentation: 12/29 11:25 Chief complaint: EMS states: HERNIA PAIN. Coronavirus screen: At this time, the client bp does not indicate any symptoms associated with coronavirus-19. Ebola Screen: No symptoms or risks identified at this time. Initial Sepsis Screen: Does the patient meet any 2 criteria? No. Patient's initial sepsis screen is negative. Does the patient have a suspected source of infection? No. Patient's initial sepsis screen is negative. Risk Assessment: Do you want to hurt yourself or someone else? Patient reports no desire to harm self or others. Onset of symptoms is unknown. Care prior to arrival: None. 11:25 Method Of Arrival: EMS: [facility] bp 11:25 Acuity: MARTINA 3 bp Triage Assessment: 11:25 General: Appears distressed, unkempt, malnourished, Behavior is cooperative, bp appropriate for age, anxious. Pain: Complains of pain in abdomen. EENT: No deficits noted. Neuro: No deficits noted. Cardiovascular: No deficits noted. Respiratory: No deficits noted. GI: Reports lower abdominal pain. : No signs and/or symptoms were reported regarding the genitourinary system. Derm: No deficits noted. Musculoskeletal: No deficits noted. Historical: - Allergies: 12:10 No Known Allergies; bp - Home Meds: 12:10 Risperdal Oral [Active]; Depakote Oral [Active]; Hydrocodone-Acetaminophen 5/500 Oral bp [Active]; - PMHx: 12:10 Schizophrenia; Hypertension; Hernia; Diabetes - NIDDM; Bipolar disorder; bp - Immunization history:: Adult Immunizations unknown. - Social history:: Smoking status: Patient reports the use of cigarette tobacco products, unknown amount. - Family history:: not pertinent. - Hospitalizations: : No recent hospitalization is reported. Screenin:25 Abuse screen: Denies threats or abuse. Denies injuries from another. Nutritional bp screening: No deficits noted. Tuberculosis screening: No symptoms or risk factors identified. Fall Risk None identified. Assessment: 11:25 General: SEE TRIAGE NOTE. bp Vital Signs: 11:28 BP 115 / 82; Pulse 78; Resp 18; Temp 97.7; Pulse Ox 100% ; cs9 13:00 BP 91 / 69; Pulse 58; Resp 18; Pulse Ox 97% on R/A; ss7 ED Course: 11:22 Patient arrived in ED. bp 11:25 Omari Wang MD is Attending Physician. rn 11:25 Arm band placed on. bp 11:25 Patient has correct armband on for positive identification. Bed in low position. Call bp light in reach. Side rails up X2. 11:31 COVID-19/FLU A+B (Document "Date of Onset" if Symptomatic) Sent. cs9 11:34 Richard Hsieh, RN is Primary Nurse. bp 12:05 XRAY Chest (1 view) In Process Unspecified. EDMS 12:10 Triage completed. bp 14:11 No provider procedures requiring assistance completed. Patient did not have IV access ss7 during this emergency room visit. Administered Medications: 11:40 Drug: fentaNYL (PF) 50 mcg Route: IM; Site: right deltoid; bp 12:13 Follow up: Response: No adverse reaction; Pain is decreased bp 14:00 Drug: [place] (HYDROcodone-acetaminophen) 10 mg-325 mg 1 tabs Route: PO; ss7 Outcome: 13:32 Discharge ordered by . rn 14:11 Discharged to home FATH[facility] TO DR[facility] HOME ss7 14:11 Condition: stable 14:11 Discharge instructions given to patient. 14:11 Patient left the ED. ss7 Signatures: Dispatcher [employer] EDMS Omari Wang MD MD rn Peltier, Brian, RN RN Cindy Hammond cs9 Mee Saxena RN RN ss7 Corrections: (The following items were deleted from the chart) 12:13 12:10 General: Appears distressed, unkempt, malnourished, Behavior is cooperative, bp appropriate for age, anxious, bp 12:13 12:10 Pain: Complains of pain in abdomen bp bp 12:13 12:10 EENT: No deficits noted. bp bp 12:13 12:10 Neuro: No deficits noted. bp bp 12:13 12:10 Cardiovascular: No deficits noted. bp bp 12:13 12:10 Respiratory: No deficits noted. bp bp 12:13 12:10 GI: Reports lower abdominal pain, bp bp 12:13 12:10 : No signs and/or symptoms were reported regarding the genitourinary system. bp bp 12:13 12:10 Derm: No deficits noted. bp bp 12:13 12:10 Musculoskeletal: No deficits noted. bp bp
[2021-12-29] MEDS ORDERED: HYDROCODONE/APAP 10/325 TAB ONE (14:04)
[2021-12-29 14:18] VITALS: TEMP 97.7
[2021-12-29 14:20] VITALS: BP 91/69; O2SAT 97
== END 2021-12-29 14:11 | disposition home or self-care (01) ==
LOC: ER 11:21
DX: J98.8 Other specified respiratory disorders (principal); Z20.822 Contact with and (suspected) exposure to COVID-19; K40.90 Unilateral inguinal hernia, without obstruction or gangrene, not specified as recurrent; E11.9 Type 2 diabetes mellitus without complications; I10 Essential (primary) hypertension; F20.9 Schizophrenia, unspecified; F17.210 Nicotine dependence, cigarettes, uncomplicated
CPT/HCPCS: 0240U; 71045; J3010; 96372; 99284

== ENCOUNTER 2022-01-06 10:44 | Emergency (ER) | payer OTHER ==
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
[2022-01-06] MEDS ORDERED: HYDROCODONE/APAP 5/325 MG TAB ONE (11:19)
[2022-01-06 11:51] LABS: BUN Blood Urea Nitrogen 7 mg/dL (7-18); Bicarbonate 28 mmol/L (21-32); Glucose Level 80 mg/dL (74-106); Potassium 3.4 mmol/L (3.5-5.1); Sodium Level 139 mmol/L (136-145)
--- NOTE | 2022-01-06 11:55 | EDPHYS ---
Physician Documentation [facility] Name: Tahir Ag Jr Age: 36 yrs Sex: Male : 1985 Arrival Date: 01/06/2022 Time: 10:46 Bed 20 Private MD: ED Physician Jefry Pathak HPI: 01/06 11:23 This 36 yrs old Black Male presents to ER via EMS with complaints of Groin Pain. jr8 11:23 Associated signs and symptoms: The patient has no apparent associated signs or jr8 symptoms. Modifying factors: The patient symptoms are alleviated by nothing, the patient symptoms are aggravated by movement. The patient has experienced similar episodes in the past, a few times. The patient has been recently seen by a physician:. This is a 36-year-old male with a history of right inguinal hernia that presented to the emergency room today with complaints of pain to his right groin where his hernia is. Denies any other symptoms at this time. Historical: - Allergies: 10:50 No Known Allergies; ph - Home Meds: 10:50 Depakote Oral [Active]; Hydrocodone-Acetaminophen 5/500 Oral [Active]; Risperdal Oral ph [Active]; - PMHx: 10:50 Bipolar disorder; Diabetes - NIDDM; Hernia; Hypertension; Schizophrenia; ph - Immunization history:: Client reports receiving the 2nd dose of the Covid vaccine. - Social history:: Smoking status: Patient reports the use of cigarette tobacco products, smokes one pack cigarettes per day. Patient/guardian denies using alcohol, street drugs, but used to use street drugs. ROS: 11:23 Eyes: Negative for injury, pain, redness, and discharge, ENT: Negative for injury, jr8 pain, and discharge, Neck: Negative for injury, pain, and swelling, Cardiovascular: Negative for chest pain, palpitations, and edema, Respiratory: Negative for shortness of breath, cough, wheezing, and pleuritic chest pain, Back: Negative for injury and pain, MS/Extremity: Negative for injury and deformity, Skin: Negative for injury, rash, and discoloration, Neuro: Negative for headache, weakness, numbness, tingling, and seizure. 11:23 Abdomen/GI: Negative for abdominal pain, nausea, vomiting, and diarrhea, black/tarry stool. Exam: 11:23 Constitutional: This is a well developed, well nourished patient who is awake, alert, jr8 and in no acute distress. Cardiovascular: Regular rate and rhythm with a normal S1 and S2. No gallops, murmurs, or rubs. Normal PMI, no JVD. No pulse deficits. Respiratory: Lungs have equal breath sounds bilaterally, clear to auscultation and percussion. No rales, rhonchi or wheezes noted. No increased work of breathing, no retractions or nasal flaring. Back: No spinal tenderness. No costovertebral tenderness. Full range of motion. Skin: Warm, dry with normal turgor. Normal color with no rashes, no lesions, and no evidence of cellulitis. MS/ Extremity: Pulses equal, no cyanosis. Neurovascular intact. Full, normal range of motion. Neuro: Awake and alert, GCS 15, oriented to person, place, time, and situation. Cranial nerves II-XII grossly intact. Motor strength 5/5 in all extremities. Sensory grossly intact. 11:23 Abdomen/GI: Inspection: abdomen appears normal, Bowel sounds: normal, Palpation: abdomen is soft and non-tender, in all quadrants, Indicators: McBurney's point is not tender, Calle's sign is negative, Rovsing's sign is negative, Hernia: noted in the right inguinal area, incarceration, is not appreciated, tenderness, that is mild, bowel sounds are appreciated on auscultation, Easily reducible. Vital Signs: 10:47 BP 109 / 94; Pulse 78; Resp 18; Temp 97.7; Pulse Ox 98% ; Weight 49.9 kg; Height 5 ft. ph 5 in. (165.10 cm); Pain 10/10; 11:20 BP 94 / 61; Pulse 57; Resp 16; Pulse Ox 99% ; ww 10:47 Body Mass Index 18.30 (49.90 kg, 165.10 cm) ph MDM: 10:48 Patient medically screened. [facility] 11:23 Data reviewed: vital signs, nurses notes, lab test result(s). Data interpreted: Pulse jr8 oximetry: on room air is 98 %. Interpretation: normal. Counseling: I had a detailed discussion with the patient and/or guardian regarding: the historical points, exam findings, and any diagnostic results supporting the discharge/admit diagnosis, lab results, the need for outpatient follow up, a general surgeon. Response to treatment: the patient's symptoms have markedly improved after treatment. 11:53 ED course: Discussed with patient that he has a non incarcerated reducible hernia on jr8 the right side. Needs to follow-up with general surgery for definitive treatment. In the meantime we will put him in a scrotal support device.. 01/06 10:58 Order name: BMP jr8 01/06 10:59 Order name: Basic Metabolic Panel; Complete Time: 11:53 EDMS Administered Medications: 11:28 Drug: HYDROcodone-acetaminophen 5 mg-325 mg 1 tabs Route: PO; ww 12:02 Drug: Potassium Chloride 40 mEq Route: PO; ph Disposition: 15:48 Co-signature as Attending Physician, Jefry Pathak DO I agree with the assessment and ms3 plan of care. Disposition Summary: 01/06/22 11:55 Discharge Ordered Location: Home jr Problem: new jr8 Symptoms: have improved jr8 Condition: Stable jr8 Diagnosis - Unilateral inguinal hernia, without obstruction or gangrene, recurrent jr8 Followup: jr8 - With: Julio César Nam MD - When: 2 - 3 days - Reason: Recheck today's complaints, Continuance of care, Re-evaluation by your physician Discharge Instructions: - Discharge Summary Sheet jr8 - Hernia, Adult jr8 Forms: - Medication Reconciliation Form jr8 - Thank You Letter jr8 - Antibiotic Education jr8 - Prescription Opioid Use jr8 Signatures: Dispatcher [employer] EDMS Ramón Quevedo PA PA jr8 Betty Delgado RN RN Jefry Bryson DO DO ms3 Alyce Michael RN RN ww
--- NOTE | 2022-01-06 11:55 | ER ---
Nurse's Notes [facility] Name: Tahir Ag Jr Age: 36 yrs Sex: Male : 1985 Arrival Date: 01/06/2022 Time: 10:46 Bed 20 Private MD: Diagnosis: Unilateral inguinal hernia, without obstruction or gangrene, recurrent Presentation: 01/06 10:47 Chief complaint: EMS states: Pt from home, reports hx of inguinal hernia (L) states ph that he "was watching TV 3 nights ago and he thinks it ruptured". Coronavirus screen: Vaccine status: Patient reports receiving the 2nd dose of the covid vaccine. Ebola Screen: No symptoms or risks identified at this time. Initial Sepsis Screen: Does the patient meet any 2 criteria? No. Patient's initial sepsis screen is negative. Does the patient have a suspected source of infection? No. Patient's initial sepsis screen is negative. Risk Assessment: Do you want to hurt yourself or someone else? Patient reports no desire to harm self or others. Onset of symptoms was January 06, 2022. 10:47 Method Of Arrival: EMS: [facility] ph 10:47 Acuity: MARTINA 3 ph Historical: - Allergies: 10:50 No Known Allergies; ph - Home Meds: 10:50 Depakote Oral [Active]; Hydrocodone-Acetaminophen 5/500 Oral [Active]; Risperdal Oral ph [Active]; - PMHx: 10:50 Bipolar disorder; Diabetes - NIDDM; Hernia; Hypertension; Schizophrenia; ph - Immunization history:: Client reports receiving the 2nd dose of the Covid vaccine. - Social history:: Smoking status: Patient reports the use of cigarette tobacco products, smokes one pack cigarettes per day. Patient/guardian denies using alcohol, street drugs, but used to use street drugs. Screenin:50 Abuse screen: Denies threats or abuse. Denies injuries from another. Nutritional ph screening: No deficits noted. Tuberculosis screening: No symptoms or risk factors identified. Fall Risk None identified. Assessment: 11:20 General: Appears in no apparent distress. Behavior is calm, cooperative. Pain: ww Complains of pain in groin and right femoral area. Neuro: Level of Consciousness is awake, alert, obeys commands, Oriented to person, place, time, situation, Moves all extremities. Gait is steady, Speech is normal. Cardiovascular: Capillary refill < 3 seconds Patient's skin is warm and dry. Respiratory: Airway is patent Respiratory effort is even, unlabored, Respiratory pattern is regular, symmetrical. GI: Abdomen is non-distended, Abd is soft X 4 quads Abdomen is tender to palpation in suprapubic area right inguinal tenderness. GI: PEG tube clamped. :. EENT: No signs and/or symptoms were reported regarding the EENT system. Derm: Skin is intact. 11:42 Reassessment: patient requesting fentanyl and a social media community manager. RYAN Melgar informed. They ww have contacted social media community manager and we have none available today.. Vital Signs: 10:47 BP 109 / 94; Pulse 78; Resp 18; Temp 97.7; Pulse Ox 98% ; Weight 49.9 kg; Height 5 ft. ph 5 in. (165.10 cm); Pain 10/10; 11:20 BP 94 / 61; Pulse 57; Resp 16; Pulse Ox 99% ; ww 10:47 Body Mass Index 18.30 (49.90 kg, 165.10 cm) ph ED Course: 10:46 Patient arrived in ED. ph 10:46 Patient has correct armband on for positive identification. Bed in low position. Call mh5 light in reach. Side rails up X2. Warm blanket given. Pulse ox on. NIBP on. 10:48 Ramón Quevedo PA is PHCP. jr8 10:48 Jefry Pathak DO is Attending Physician. jr8 10:49 Triage completed. ph 10:51 Arm band placed on. ph 10:58 Alyce Michael, MARTINA is Primary Nurse. ww 11:20 sent to lab. ww 11:28 BMP Sent. ww 11:54 Julio César Nam MD is Referral Physician. jr8 12:22 No provider procedures requiring assistance completed. Patient did not have IV access ww during this emergency room visit. Administered Medications: 11:28 Drug: HYDROcodone-acetaminophen 5 mg-325 mg 1 tabs Route: PO; ww 12:02 Drug: Potassium Chloride 40 mEq Route: PO; ph Outcome: 11:55 Discharge ordered by . jr8 12:22 Discharged to home ambulatory. ww 12:22 Condition: stable 12:22 Discharge instructions given to patient, Instructed on discharge instructions, follow up and referral plans. medication usage, safety practices, Demonstrated understanding of instructions, follow-up care, medications. 12:23 Patient left the ED. ww Signatures: Ramón Quevedo PA PA jr8 Betty Delgado RN RN Madeline [facility] Alyce Michael RN RN regina
[2022-01-06] MEDS ORDERED: POTASSIUM CL SA 10 MEQ TAB PO ONE (12:04)
[2022-01-06 12:28] VITALS: TEMP 97.7
[2022-01-06 12:29] VITALS: BP 94/61; O2SAT 99
== END 2022-01-06 12:23 | disposition home or self-care (01) ==
LOC: ER 10:44
DX: R10.30 Lower abdominal pain, unspecified (principal); K40.91 Unilateral inguinal hernia, without obstruction or gangrene, recurrent; F17.210 Nicotine dependence, cigarettes, uncomplicated
CPT/HCPCS: 36415; 80048; 99284

== ENCOUNTER 2022-01-10 08:41 | Emergency (ER) | payer OTHER ==
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
[2022-01-10 10:39] LABS: Absolute Lymphocytes (CBC) 1.8 K/uL (0.7-4.9); Hematocrit 32.4 % (39.6-49.0); Lymphocytes % 33.8 % (15.3-44.8); MPV 9.2 fL (7.6-11.3); RBC Red Blood Cell Count 3.49 M/uL (4.33-5.43)
[2022-01-10 10:55] LABS: ALT/SGPT 15 U/L (12-78); AST/SGOT 10 U/L (15-37); Albumin 2.7 g/dL (3.4-5.0); Alkaline Phosphatase 67 U/L (45-117); BUN Blood Urea Nitrogen 17 mg/dL (7-18); Bicarbonate 30 mmol/L (21-32); Bilirubin Total 0.3 mg/dL (0.2-1.0); Glucose Level 80 mg/dL (74-106); Potassium 3.5 mmol/L (3.5-5.1); Protein, Total 8.2 g/dL (6.4-8.2); Sodium Level 145 mmol/L (136-145)
[2022-01-10] MEDS ORDERED: MORPHINE 2 MG/ML SYR ONE (11:02)
[2022-01-10] MEDS ORDERED: ONDANSETRON 4 MG/2 ML VIAL ONE (11:02)
[2022-01-10] MEDS ORDERED: NA CHLORIDE 0.9% 500 ML ONE (11:02)
--- NOTE | 2022-01-10 11:05 | RAD REPORT ---
EXAM DESCRIPTION: CT - Abdomen Pelvis W Contrast - 01/10/2022 10:36 am CLINICAL HISTORY: right groin pain;Abd pain COMPARISON: Abdomen Pelvis W Contrast dated 10/12/2021 TECHNIQUE: Biphasic, helical CT imaging of the abdomen and pelvis was performed following 100 ml non -ionic IV contrast. No oral contrast administered. All CT scans are performed using dose optimization technique as appropriate and may include automated exposure control or mA/KV adjustment according to patient size. FINDINGS: No acute pleural or parenchymal process in either lung base. Lung herrera do appear to be h yper expanded. No cardiomegaly or pericardial effusion. The liver shows a slightly mottled enhancement pattern that is probably artifact of image acquisition timing or possibly the affects of diminished cardiac function. An acute liver parenchymal process is not seen. No focal abnormality identified patient has a Reidel lobe configuration variant. No portal vein abnormality identified. The spleen, pancreas, gallbladder and biliary tree show no suspicious findings. Symmetric renal function is seen with no hydronephrosis or suspicious renal mass. No pyelonephritis o r acute parenchymal process. No bladder abnormalities. No adrenal abnormalities. Distal esophagus is only partially imaged. There is a large amount of food present within the dilated distal esophagus. White of the GE junction appear slightly thickened. No gastric dilatation or gastr ic wall thickening. No focal gastric mass identifiable. The patient has a PEG tube in place. No acute findings seen along the length of the tubing. The material within the lumen of the stomach appears t o be solid food. The patient is presumed to be taking in PO solid food rather than only via the PEG t ube. This will need clinical correlation. Patient could have reflux as well accounting for part of th e distal esophageal content. No dilated large or small bowel loops present. Patient has a moderately large stool volume distending the colon. Patient has a large right inguinal hernia is again identified. The hernia contains cecum and multiple nondilated small bowel loops. A nondilated appendix appears to be present within the her jere though this is difficult to definitively assess. Herniated bowel loops do not appear abnormally t hickened or edematous. The hernia does appear to be a relatively wide neck hernia. Scrotal wall does appear to be thickened or edematous. No free air, pneumatosis or abnormal free fluid collection. Ther e is minimal congestion or edema of the peritoneal fatty tissues. No bulky lymphadenopathy or omenta l thickening. No acute or destructive bone process identifiable. Soft tissues midline and just left lateral of midl ine posterior to the lower sacrum and coccyx appear slightly thickened. No air in the soft tissues. T here is no bone destruction. This is just above the gluteal crease. No history provided that would in dicate the patient is non ambulatory. IMPRESSION: Large right inguinal hernia containing cecum and multiple loops of nondilated small keila l. In nondilated appendix appears to be present within the hernia but not definitively identified. The hernia is larger than seen on the 09/2021 CT study. Scrotal white are edematous but no definitive ischemic bowel change seen. Patient has a PEG tube in place that shows no acute finding. Patient also has a dilated distal esopha lupis containing solid food material. While reflux may be present, the distal esophageal content appear s solid rather than the typical PEG tube administered nutrition. The patient is presumed to be taking p.o. food in addition to or rather than utilizing only the PEG t ube route. The presence of this quantity of food within a dilated esophagus could indicate stricture at the GE junction or esophageal peristalsis abnormality.
--- NOTE | 2022-01-10 11:42 | ER ---
Nurse's Notes [facility] Name: Tahir Ag Jr Age: 36 yrs Sex: Male : 1985 Arrival Date: 01/10/2022 Time: 08:42 Bed 16 Private MD: Diagnosis: Unilateral inguinal hernia, without obstruction or gangrene, recurrent Presentation: 01/10 08:43 Chief complaint: Patient states: abd hernia is hurting. Coronavirus screen: Client cb5 denies travel out of the [place] in the last 14 days. At this time, the client does not indicate any symptoms associated with coronavirus-19. Ebola Screen: Patient denies exposure to infectious person. Initial Sepsis Screen: Does the patient meet any 2 criteria? No. Patient's initial sepsis screen is negative. Risk Assessment: Do you want to hurt yourself or someone else? Patient reports no desire to harm self or others. 08:43 Method Of Arrival: EMS: [place] [id number] 08:43 Acuity: MARTINA 3 cb5 08:51 Initial Sepsis Screen: Does the patient have a suspected source of infection? No. vg1 Patient's initial sepsis screen is negative. Onset of symptoms was January 10, 2022. Triage Assessment: 08:44 General: Appears comfortable, unkempt, Behavior is calm, cooperative. General: Appears. cb5 Pain: Complains of pain in abdomen Pain currently is 10 out of 10 on a pain scale. EENT: No deficits noted. Neuro: Level of Consciousness is awake, alert, obeys commands, Oriented to person, place, time, situation, Appropriate for age. Cardiovascular: No deficits noted. Respiratory: No deficits noted. GI: No deficits noted. : No deficits noted. Historical: - Allergies: 08:51 No Known Allergies; vg1 - Home Meds: 08:51 Depakote Oral [Active]; Hydrocodone-Acetaminophen 5/500 Oral [Active]; Risperdal Oral vg1 [Active]; - PMHx: 08:46 Bipolar disorder; Diabetes - NIDDM; Hernia; Hypertension; Schizophrenia; cb5 - Immunization history:: Adult Immunizations up to date. - Social history:: Smoking status: unknown. Screenin:50 Abuse screen: Denies threats or abuse. Nutritional screening: No deficits noted. vg1 Tuberculosis screening: No symptoms or risk factors identified. Fall Risk No fall in past 12 months (0 pts). No secondary diagnosis (0 pts). No IV (0 pts). Ambulatory Aid- None/Bed Rest/Nurse Assist (0 pts). Gait- Normal/Bed Rest/Wheelchair (0 pts) Mental Status- Oriented to own ability (0 pts). Total Durham Fall Scale indicates No Risk (0-24 pts). Assessment: 08:46 General: Appears in no apparent distress. uncomfortable, Behavior is calm, cooperative. vg1 Pain: Complains of pain in pelvis Pain currently is 10 out of 10 on a pain scale. Neuro: Level of Consciousness is awake, alert, obeys commands, Oriented to person, place, time, situation. Cardiovascular: Patient's skin is warm and dry. Respiratory: Airway is patent Respiratory effort is even, unlabored. GI: Abdomen is flat, PEG tube in place, Site clean. Reports nausea, right side inguinal hernia has 'ruptured'. : No signs and/or symptoms were reported regarding the genitourinary system. EENT: No signs and/or symptoms were reported regarding the EENT system. Derm: Skin is intact, Skin is pink, warm \T\ dry. Musculoskeletal: Circulation, motion, and sensation intact. 09:50 General: attempted P.I.V placement twice without success, requested another nurse to cb5 attempt.. 10:50 General: pt returned back from CT Scan will administer medications now. P. I.V. is cb5 intact. Vital Signs: 08:43 BP 93 / 74; Pulse 77; Resp 16; Temp 98.4; Pulse Ox 100% ; Weight 53.52 kg; Height 5 ft. cb5 6 in. (167.64 cm); Pain 6/10; 09:01 BP 113 / 71; Pulse 64; Resp 15; Pulse Ox 100% ; vg1 10:50 BP 103 / 74; Pulse 65; Resp 16; Pulse Ox 98% ; Pain 6/10; cb5 08:43 Body Mass Index 19.05 (53.52 kg, 167.64 cm) cb5 ED Course: 08:42 Patient arrived in ED. cb5 08:44 Delmy Perez, RN is Primary Nurse. vg1 08:44 Triage completed. cb5 08:46 Arm band placed on. cb5 08:48 Amanuel Ferrer MD is Attending Physician. kdr 08:50 Patient has correct armband on for positive identification. Bed in low position. Call vg1 light in reach. Side rails up X 1. 09:00 Door closed. Noise minimized. Warm blanket given. mb7 10:23 Missed attempt(s): 22 gauge in left upper arm. Bleeding controlled, band aid applied, ll1 catheter tip intact. 10:27 Inserted saline lock: 22 gauge in right antecubital area, using aseptic technique. ll1 Blood collected. 10:35 CT Abd/Pelvis - IV Contrast Only In Process Unspecified. EDMS 12:06 No provider procedures requiring assistance completed. IV discontinued, intact, vg1 bleeding controlled, No redness/swelling at site. Pressure dressing applied. Administered Medications: 10:55 Drug: morphine 2 mg Route: IVP; Site: right antecubital; cb5 12:05 Follow up: Response: No adverse reaction; Marked relief of symptoms vg1 10:55 Drug: Zofran (Ondansetron) 4 mg Route: IVP; Site: right antecubital; cb5 12:05 Follow up: Response: No adverse reaction; No change in condition vg1 10:55 Drug: NS 0.9% 500 ml Route: IV; Rate: bolus; Site: right antecubital; cb5 12:05 Follow up: IV Status: Completed infusion; IV Intake: 500ml vg1 Intake: 12:05 IV: 500ml; Total: 500ml. vg1 Outcome: 11:41 Discharge ordered by . kdr 12:06 Discharged to home ambulatory. vg1 12:06 Condition: good 12:06 Discharge instructions given to patient, Instructed on discharge instructions, follow up and referral plans. Demonstrated understanding of instructions, follow-up care. 12:06 Patient left the ED. vg1 Signatures: Dispatcher [employer] EDSC Amanuel Ferrer MD MD kdr Garcia, Victoria RN RN vg1 Macrina Connolly RN RN ll1 Anna Benson mb7 Inessa Hand, RN RN cb5
--- NOTE | 2022-01-10 11:42 | EDPHYS ---
Physician Documentation [facility] Name: Tahir Ag Jr Age: 36 yrs Sex: Male : 1985 Arrival Date: 01/10/2022 Time: 08:42 Bed 16 Private MD: ED Physician Amanuel Ferrer HPI: 01/10 09:18 This 36 yrs old Black Male presents to ER via EMS with complaints of Hernia Issue. kdr 09:18 Patient has a long history of a right groin hernia. He states that last night it kdr "ruptured". Now he has pain in the right groin. He ambulated to the room without any apparent painful motions. EMS brought the patient to the ED. Onset: The symptoms/episode began/occurred Groin pain and hernia that are longstanding but the increased swelling and pain began last night. Severity of symptoms: At their worst the symptoms were mild in the emergency department the symptoms are unchanged. The patient has not experienced similar symptoms in the past. The patient has been recently seen at the [facility] Emergency Department, last week. Historical: - Allergies: 08:51 No Known Allergies; vg1 - Home Meds: 08:51 Depakote Oral [Active]; Hydrocodone-Acetaminophen 5/500 Oral [Active]; Risperdal Oral vg1 [Active]; - PMHx: 08:46 Bipolar disorder; Diabetes - NIDDM; Hernia; Hypertension; Schizophrenia; cb5 - Immunization history:: Adult Immunizations up to date. - Social history:: Smoking status: unknown. ROS: 09:18 Constitutional: Negative for fever, chills, and weight loss, Eyes: Negative for injury, kdr pain, redness, and discharge, Neck: Negative for injury, pain, and swelling, Cardiovascular: Negative for chest pain, palpitations, and edema, Respiratory: Negative for shortness of breath, cough, wheezing, and pleuritic chest pain, Abdomen/GI: Negative for abdominal pain, nausea, vomiting, diarrhea, and constipation, Back: Negative for injury and pain, Skin: Negative for injury, rash, and discoloration, Neuro: Negative for headache, weakness, numbness, tingling, and seizure activity. Psych: Negative for depression, anxiety, suicide ideation, homicidal ideation, and hallucinations, Allergy/Immunology: Negative for hives, rash, and allergies. 09:18 : Positive for of the right femoral area. Exam: 11:46 Constitutional: This is a well developed, well nourished patient who is awake, alert, kdr and in no acute distress. Head/Face: Normocephalic, atraumatic. Eyes: Pupils equal round and reactive to light, extra-ocular motions intact. Lids and lashes normal. Conjunctiva and sclera are non-icteric and not injected. Cornea within normal limits. Periorbital areas with no swelling, redness, or edema. Neck: Trachea midline, no thyromegaly or masses palpated, and no cervical lymphadenopathy. Supple, full range of motion without nuchal rigidity, or vertebral point tenderness. No Meningismus. Chest/axilla: Normal chest wall appearance and motion. Nontender with no deformity. No lesions are appreciated. Cardiovascular: Regular rate and rhythm with a normal S1 and S2. No gallops, murmurs, or rubs. Normal PMI, no JVD. No pulse deficits. Respiratory: Lungs have equal breath sounds bilaterally, clear to auscultation and percussion. No rales, rhonchi or wheezes noted. No increased work of breathing, no retractions or nasal flaring. Back: No spinal tenderness. No costovertebral tenderness. Full range of motion. Skin: Warm, dry with normal turgor. Normal color with no rashes, no lesions, and no evidence of cellulitis. MS/ Extremity: Pulses equal, no cyanosis. Neurovascular intact. Full, normal range of motion. Neuro: Awake and alert, GCS 15, oriented to person, place, time, and situation. Cranial nerves II-XII grossly intact. Motor strength 5/5 in all extremities. Sensory grossly intact. Cerebellar exam normal. Normal gait. Psych: Awake, alert, with orientation to person, place and time. Behavior, mood, and affect are within normal limits. 11:46 Abdomen/GI: Inspection: abdomen appears normal, Bowel sounds: active, There is a large right inguinal hernia that is mildly tender.. Vital Signs: 08:43 BP 93 / 74; Pulse 77; Resp 16; Temp 98.4; Pulse Ox 100% ; Weight 53.52 kg; Height 5 ft. cb5 6 in. (167.64 cm); Pain 6/10; 09:01 BP 113 / 71; Pulse 64; Resp 15; Pulse Ox 100% ; vg1 10:50 BP 103 / 74; Pulse 65; Resp 16; Pulse Ox 98% ; Pain 6/10; cb5 08:43 Body Mass Index 19.05 (53.52 kg, 167.64 cm) cb5 MDM: 11:41 Patient medically screened. kdr 11:46 Data reviewed: vital signs, nurses notes, lab test result(s), radiologic studies. kdr Counseling: I had a detailed discussion with the patient and/or guardian regarding: the historical points, exam findings, and any diagnostic results supporting the discharge/admit diagnosis, lab results, radiology results, the need for outpatient follow up. Physician consultation: Rolan Angeles MD The patient will need to see GI to have the achalasia complications managed prior to surgical repair of right inguinal hernia. The hernia did appears to be stable though slightly enlarging. There is no evidence of incarcerated bowel.. 01/10 09:17 Order name: CMP; Complete Time: 11:15 kdr 01/10 09:17 Order name: CBC with Diff; Complete Time: 11:15 kdr 01/10 09:17 Order name: CT Abd/Pelvis - IV Contrast Only; Complete Time: 11:15 kdr Administered Medications: 10:55 Drug: morphine 2 mg Route: IVP; Site: right antecubital; cb5 12:05 Follow up: Response: No adverse reaction; Marked relief of symptoms vg1 10:55 Drug: Zofran (Ondansetron) 4 mg Route: IVP; Site: right antecubital; cb5 12:05 Follow up: Response: No adverse reaction; No change in condition vg1 10:55 Drug: NS 0.9% 500 ml Route: IV; Rate: bolus; Site: right antecubital; cb5 12:05 Follow up: IV Status: Completed infusion; IV Intake: 500ml vg1 Disposition Summary: 01/10/22 11:41 Discharge Ordered Location: Home kdr Problem: new kdr Symptoms: have improved kdr Condition: Stable kdr Diagnosis - Unilateral inguinal hernia, without obstruction or gangrene, recurrent kdr Followup: kdr - With: Private Physician - When: 2 - 3 days - Reason: If symptoms return, Further diagnostic work-up, Recheck today's complaints, Continuance of care, Re-evaluation by your physician Discharge Instructions: - Discharge Summary Sheet kdr - Inguinal Hernia, Adult, [id number] kdr - Achalasia kdr Forms: - Medication Reconciliation Form kdr - Thank You Letter kdr Signatures: Dispatcher [employer] Amanuel Douglas MD MD kdr Delmy Perez, RN RN vg1 Inessa Hand RN RN cb5
[2022-01-10 12:16] VITALS: TEMP 98.4
[2022-01-10 12:18] VITALS: BP 103/74; O2SAT 98
== END 2022-01-10 12:06 | disposition home or self-care (01) ==
LOC: ER 08:41
DX: K40.91 Unilateral inguinal hernia, without obstruction or gangrene, recurrent (principal); E11.9 Type 2 diabetes mellitus without complications; I10 Essential (primary) hypertension; F20.9 Schizophrenia, unspecified
CPT/HCPCS: 96361; 85025; 36415; 80053; 74177; 96375; 96374; 99284; Q9967; J2270; J7040; J2405

== ENCOUNTER 2022-01-13 07:13 | Emergency (ER) | payer OTHER ==
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
[2022-01-13] MEDS ORDERED: HYDROCODONE/APAP 5/325 MG TAB ONE (07:39)
--- NOTE | 2022-01-13 07:46 | EDPHYS ---
Physician Documentation [facility] Name: Tahir Ag Jr Age: 36 yrs Sex: Male : 1985 Arrival Date: 01/13/2022 Time: 07:18 Bed 6 Private MD: ED Physician Omari Wang HPI: 01/13 07:30 This 36 yrs old Black Male presents to ER via EMS with complaints of hernia pain. rn 07:30 The patient presents with abdominal pain right inguinal region. Onset: The rn symptoms/episode began/occurred at an unknown time. The symptoms do not radiate. Associated signs and symptoms: Pertinent positives: constipation, Pertinent negatives: diarrhea, dysuria, fever, hematuria, vomiting. The symptoms are described as achy. Modifying factors: The symptoms are alleviated by nothing, the symptoms are aggravated by nothing. Severity of pain: At its worst the pain was mild in the emergency department the pain is unchanged. The patient has experienced similar episodes in the past, chronically. The patient has been recently seen at the [facility] Emergency Department. Pt reports still dealing with his hernia, right inguinal, has not followed up with surgeon for it due to hectic schedule. Pt reports can still push it in but pops back out. No vomiting. Eating well. Reports constipation, last BM 2 days ago, but is pretty normal for him. . Historical: - Allergies: 07:21 No Known Allergies; jg9 - Home Meds: 07:21 Depakote Oral [Active]; Hydrocodone-Acetaminophen 5/500 Oral [Active]; Risperdal Oral jg9 [Active]; - PMHx: 07:21 Bipolar disorder; Diabetes - NIDDM; Hernia; Hypertension; Schizophrenia; jg9 - Immunization history:: Adult Immunizations up to date. - Social history:: Smoking status: Patient reports the use of cigarette tobacco products, smokes one pack cigarettes per day. - Family history:: not pertinent. - Hospitalizations: : No recent hospitalization is reported. ROS: 07:30 Constitutional: Negative for fever, chills, and weight loss, Eyes: Negative for injury, rn pain, redness, and discharge, Cardiovascular: Negative for chest pain, palpitations, and edema, Respiratory: Negative for shortness of breath, cough, wheezing, and pleuritic chest pain, Abdomen/GI: Negative for nausea, vomiting, diarrhea Back: Negative for injury and pain, MS/Extremity: Negative for injury and deformity, Skin: Negative for injury, rash, and discoloration, Neuro: Negative for headache, weakness, numbness, tingling, and seizure. Exam: 07:30 Constitutional: Thin male, disheveled, no acute distress Abdomen/GI: soft, rn non-tender, non-distended, + large right inguinal hernia that is easily reduced without pain medication Male : Normal genitalia with no discharge or lesions. Skin: Warm, dry with normal turgor. Normal color with no rashes, no lesions, and no evidence of cellulitis. Vital Signs: 07:10 BP 98 / 69; Pulse 75; Resp 17 S; Temp 96.2(A); Pulse Ox 100% ; Weight 49.9 kg (R); jg9 Height 5 ft. 5 in. (165.10 cm) (R); Pain 10/10; 07:54 BP 92 / 78; Pulse 72; Resp 14; Pulse Ox 99% ; jg9 07:10 Body Mass Index 18.30 (49.90 kg, 165.10 cm) jg9 Procedures: 07:30 Performed Manual reduction of right inguinal hernia. Pt placed in Trendelenburg rn position, slow and steady manual pressure applied and inguinal hernia successfully reduced, tolerated well. . MDM: 07:18 Patient medically screened. rn 07:44 Differential diagnosis: hernia, recurrent, chronic. Data reviewed: vital signs, nurses rn notes, old medical records, and as a result, I will discharge patient. Counseling: I had a detailed discussion with the patient and/or guardian regarding: the historical points, exam findings, and any diagnostic results supporting the discharge/admit diagnosis, the need for outpatient follow up, to return to the emergency department if symptoms worsen or persist or if there are any questions or concerns that arise at home. Response to treatment: the patient's symptoms have resolved after treatment, the patient's condition has returned to base line, the patient is now symptom free, and as a result, I will discharge patient. Special discussion: I discussed with the patient/guardian in detail that at this point there is no indication for admission to the hospital. It is understood, however, that if the symptoms persist or worsen the patient needs to return immediately for re-evaluation. ED course: Hernia easily reducible, had long conversation with patient regarding need to f/u with general surgery as told many times before. Return precautions given and understood. . Administered Medications: 07:38 Drug: HYDROcodone-acetaminophen 5 mg-325 mg 1 tabs {Note: RASS-0.} Route: PO; jg9 Disposition Summary: 01/13/22 07:45 Discharge Ordered Location: Home rn Problem: chronic rn Symptoms: have improved rn Condition: Stable rn Diagnosis - Unilateral inguinal hernia, without obstruction or gangrene, recurrent rn Followup: rn - With: Milton Ramírez MD - When: As needed - Reason: Recheck today's complaints, Re-evaluation by your physician Discharge Instructions: - Discharge Summary Sheet rn - Inguinal Hernia, Adult, [id number] rn Forms: - Medication Reconciliation Form rn - Thank You Letter rn - Antibiotic video production intern - Prescription Opioid Use rn Signatures: Omari Wang MD MD rn Gilmore, Jennifer, RN RN jg9
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
[2022-01-13 08:05] VITALS: BP 92/78; O2SAT 99
== END 2022-01-13 08:00 | disposition home or self-care (01) ==
LOC: ER 07:13
DX: K40.91 Unilateral inguinal hernia, without obstruction or gangrene, recurrent (principal); E11.9 Type 2 diabetes mellitus without complications; I10 Essential (primary) hypertension; F20.9 Schizophrenia, unspecified; F17.210 Nicotine dependence, cigarettes, uncomplicated
CPT/HCPCS: 99283

== ENCOUNTER 2022-01-15 16:12 | Emergency (ER) | payer OTHER ==
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
[2022-01-15] MEDS ORDERED: ACETAMINOPHEN 325 MG TABLET ONE (17:05)
[2022-01-15] MEDS ORDERED: FENTANYL CITR 100 MCG/2 ML ONE (18:24)
[2022-01-15] MEDS ORDERED: ONDANSETRON 4 MG/2 ML VIAL ONE (18:25)
[2022-01-15] MEDS ORDERED: DIAZEPAM 10 MG/2 ML INJ SYRINGE ONE (18:25)
--- NOTE | 2022-01-15 19:09 | ER ---
Nurse's Notes [facility] Name: Tahir Ag Jr Age: 36 yrs Sex: Male : 1985 Arrival Date: 01/15/2022 Time: 16:15 Bed 18 Private MD: Diagnosis: Right inguinal hernia, manual reduction, subsequent visit Presentation: 01/15 16:29 Chief complaint: EMS states: Report received from EMS that patient is complaining of a ag7 ruptured hernia. Coronavirus screen: Client denies travel out of the [place] in the last 14 days. At this time, the client does not indicate any symptoms associated with coronavirus-19. Ebola Screen: No symptoms or risks identified at this time. Initial Sepsis Screen: Does the patient meet any 2 criteria? No. Patient's initial sepsis screen is negative. Does the patient have a suspected source of infection? No. Patient's initial sepsis screen is negative. Risk Assessment: Do you want to hurt yourself or someone else? Patient reports no desire to harm self or others. Other: Patient request a social work nurse. Onset of symptoms was August 17, 2002. 16:29 Method Of Arrival: EMS: [facility] ag7 16:29 Acuity: MARTINA 4 ag7 Historical: - Allergies: 16:33 No Known Allergies; ag7 - Home Meds: 16:33 Depakote Oral [Active]; Trazodone Oral [Active]; ag7 - PMHx: 16:33 Bipolar disorder; Diabetes - NIDDM; Hernia; Hypertension; Schizophrenia; ag7 - PSHx: 16:33 gastrostomy tube; ag7 - Immunization history:: Adult Immunizations up to date, Client reports receiving the 2nd dose of the Covid vaccine, Flu vaccine is up to date. - Social history:: Smoking status: Patient reports the use of cigarette tobacco products, smokes one pack cigarettes per day. Screenin:15 Abuse screen: Denies threats or abuse. Denies injuries from another. Nutritional tk1 screening: No deficits noted. Tuberculosis screening: No symptoms or risk factors identified. Fall Risk None identified. Assessment: 16:36 General: Appears in no apparent distress. Behavior is calm, cooperative, appropriate ag7 for age, Smells of unknown strong odor. Pain: Complains of pain in groin Pain does not radiate. Pain currently is 10 out of 10 on a pain scale. Quality of pain is described as sharp, Pain began suddenly, Is continuous. Neuro: Level of Consciousness is awake, alert, obeys commands, Oriented to person, place, time, situation, Appropriate for age. Cardiovascular: Heart tones S1 S2 present Capillary refill < 3 seconds is brisk fingers. Respiratory: Airway is patent Trachea midline Respiratory effort is even, unlabored, Respiratory pattern is regular, symmetrical, Breath sounds are clear bilaterally. GI: PEG tube in place, clamped. : large right inguinal hernia noted, no open areas noted to external hernia, no redness. 17:30 Reassessment: No changes from previously documented assessment. Patient and/or family ag7 updated on plan of care and expected duration. Pain level reassessed. Patient is alert, oriented x 3, equal unlabored respirations, skin warm/dry/pink. 18:30 Reassessment: No changes from previously documented assessment. Patient and/or family ag7 updated on plan of care and expected duration. Pain level reassessed. Patient is alert, oriented x 3, equal unlabored respirations, skin warm/dry/pink. Patient states feeling better. Patient states symptoms have improved. 19:01 Reassessment: Patient and/or family updated on plan of care and expected duration. Pain jd3 level reassessed. Patient is alert, oriented x 3, equal unlabored respirations, skin warm/dry/pink. provider at bedside reducing hernia. pt reports feeling better. 19:15 Reassessment: D/C per MD order. Discharge instructions given to patient. Verbalized tk1 understanding. General: Appears in no apparent distress. Behavior is calm, cooperative, appropriate for age. Pain: Denies pain. Neuro: Level of Consciousness is awake, alert, obeys commands, Oriented to person, place, time, situation, Appropriate for age Cardiovascular: Capillary refill < 3 seconds is brisk in bilateral fingers. Respiratory: Airway is patent Respiratory effort is even, unlabored, Respiratory pattern is regular, symmetrical. Vital Signs: 16:29 BP 94 / 70; Pulse 78; Resp 16 S; Temp 97.2; Pulse Ox 100% on R/A; Weight 47.63 kg; ag7 Height 5 ft. 5 in. (165.10 cm) (R); Pain 10/10; 17:30 Pain 6/10; ag7 17:30 BP 91 / 62 LA Supine (/pedi); Pulse 70 LA; Resp 20 S; Pulse Ox 100% on R/A; Pain 9/10; ag7 18:31 BP 102 / 75 LA Supine (man/pedi); Pulse 69 LA; Resp 16 S; Pulse Ox 100% on R/A; Pain ag7 6/10; 19:15 BP 103 / 74 LA Supine (auto/reg); Pulse 64 MON; Resp 18 S; Temp 97.5(O); Pulse Ox 100% tk1 on R/A; Pain 0/10; 16:29 Body Mass Index 17.47 (47.63 kg, 165.10 cm) ag7 ED Course: 16:15 Patient arrived in ED. eb 16:15 Teo Alvares PA is PHCP. jmm 16:15 Omari Wang MD is Attending Physician. jmm 16:29 Kaylee Reyes, MARTINA is Primary Nurse. ag7 16:33 Triage completed. ag7 16:40 Arm band placed on left wrist. ag7 18:20 Missed attempt(s): 22 gauge in right forearm. Bleeding controlled, band aid applied, jd3 catheter tip intact. 18:25 Inserted saline lock: 22 gauge in right forearm, using aseptic technique. jd3 19:15 Patient has correct armband on for positive identification. Bed in low position. Call tk1 light in reach. Side rails up X 1. 19:15 No provider procedures requiring assistance completed. IV discontinued, intact, tk1 bleeding controlled, No redness/swelling at site. Pressure dressing applied. Administered Medications: 16:30 Drug: Acetaminophen 650 mg Route: PO; ag7 17:30 Follow up: Pain 6/10 Adult; Response: No adverse reaction ag7 18:38 Drug: Valium (diazepam) 2 mg Route: IVP; Site: right forearm; ag7 18:38 Drug: Zofran (Ondansetron) 4 mg Route: IVP; Site: right forearm; ag7 18:39 Drug: fentaNYL (PF) 25 mcg Route: IVP; Site: right forearm; ag7 Outcome: 19:09 Discharge ordered by . jm 19:15 Discharged to home ambulatory. tk1 19:15 Condition: stable 19:15 Discharge instructions given to patient, Instructed on discharge instructions, follow up and referral plans. Demonstrated understanding of instructions, follow-up care. 21:04 Patient left the ED. tk1 Signatures: Teo Alvares PA PA jmm Davies, Jonathon, RN RN jd3 Francie Akers Tammie tk1 Kaylee Reyes RN RN ag7 Corrections: (The following items were deleted from the chart) 16:36 16:33 Home Meds: Hydrocodone-Acetaminophen 5/500 Oral; ag7 ag7
--- NOTE | 2022-01-15 19:09 | EDPHYS ---
Physician Documentation [facility] Name: Tahir Ag Jr Age: 36 yrs Sex: Male : 1985 Arrival Date: 01/15/2022 Time: 16:15 Bed 18 Private MD: ED Physician Omari Wang HPI: 01/15 16:16 This 36 yrs old Black Male presents to ER via EMS with complaints of Inguinal Hernia. jmm 16:16 The patient presents with swelling. Onset: The symptoms/episode began/occurred today. jmm Modifying factors: The symptoms are alleviated by nothing, the symptoms are aggravated by nothing. Associated signs and symptoms:. This is a 36 year old male with a history of dm, right inguinal hernia that presents to the ED with complaints of swelling to his right groin. Symptoms have been chronic. Denies vomiting, fever. . Historical: - Allergies: 16:33 No Known Allergies; ag7 - Home Meds: 16:33 Depakote Oral [Active]; Trazodone Oral [Active]; ag7 - PMHx: 16:33 Bipolar disorder; Diabetes - NIDDM; Hernia; Hypertension; Schizophrenia; ag7 - PSHx: 16:33 gastrostomy tube; ag7 - Immunization history:: Adult Immunizations up to date, Client reports receiving the 2nd dose of the Covid vaccine, Flu vaccine is up to date. - Social history:: Smoking status: Patient reports the use of cigarette tobacco products, smokes one pack cigarettes per day. ROS: 16:16 Constitutional: Negative for fever, chills, and weight loss, Cardiovascular: Negative jmm for chest pain, palpitations, and edema, Respiratory: Negative for shortness of breath, cough, wheezing, and pleuritic chest pain. 16:16 : Positive for swelling. 16:16 All other systems are negative. Exam: 16:16 Constitutional: This is a well developed, well nourished patient who is awake, alert, jmm and in no acute distress. Head/Face: atraumatic. Eyes: EOMI, no conjunctival erythema appreciated ENT: Moist Mucus Membranes Neck: Trachea midline, Supple Chest/axilla: Normal chest wall appearance and motion. Cardiovascular: Regular rate and rhythm. No edema appreciated Respiratory: Normal respirations, no respiratory distress appreciated Abdomen/GI: Non distended, soft Back: Normal ROM 16:16 MS/ Extremity: Moves all extremities, no obvious deformities appreciated, no edema noted to the lower extremities Neuro: Awake and alert Psych: Behavior is normal, Mood is normal, Patient is cooperative and pleasant 16:16 : Male external genitalia: swelling: testicle, is noted in the right inguinal area, that is moderate. Vital Signs: 16:29 BP 94 / 70; Pulse 78; Resp 16 S; Temp 97.2; Pulse Ox 100% on R/A; Weight 47.63 kg; ag7 Height 5 ft. 5 in. (165.10 cm) (R); Pain 10/10; 17:30 Pain 6/10; ag7 17:30 BP 91 / 62 LA Supine (/pedi); Pulse 70 LA; Resp 20 S; Pulse Ox 100% on R/A; Pain 9/10; ag7 18:31 BP 102 / 75 LA Supine (man/pedi); Pulse 69 LA; Resp 16 S; Pulse Ox 100% on R/A; Pain ag7 6/10; 19:15 BP 103 / 74 LA Supine (auto/reg); Pulse 64 MON; Resp 18 S; Temp 97.5(O); Pulse Ox 100% tk1 on R/A; Pain 0/10; 16:29 Body Mass Index 17.47 (47.63 kg, 165.10 cm) ag7 Procedures: 19:03 Performed Right Inguinal Hernia Reduction. Patient administered fentanyl and Valium. jmm Placed in Trendelenburg position. Gentle pressure applied to the right inguinal area swelling. Hernia completely reduced after approximately 10 minutes. Patient tolerated the procedure well.. MDM: 16:22 Patient medically screened. [facility] 19:03 Data reviewed: vital signs, nurses notes. Counseling: I had a detailed discussion with [facility] the patient and/or guardian regarding: the historical points, exam findings, and any diagnostic results supporting the discharge/admit diagnosis, the need for outpatient follow up, to return to the emergency department if symptoms worsen or persist or if there are any questions or concerns that arise at home. 01/15 16:16 Order name: Misc. Order: reverse trendelenburghe; Complete Time: 16:41 [facility] 01/15 16:46 Order name: Misc. Order: gown patient; Complete Time: 17:01 [facility] 01/15 18:00 Order name: Saline Lock; Complete Time: 18:35 [facility] Administered Medications: 16:30 Drug: Acetaminophen 650 mg Route: PO; ag7 17:30 Follow up: Pain 6/10 Adult; Response: No adverse reaction ag7 18:38 Drug: Valium (diazepam) 2 mg Route: IVP; Site: right forearm; ag7 18:38 Drug: Zofran (Ondansetron) 4 mg Route: IVP; Site: right forearm; ag7 18:39 Drug: fentaNYL (PF) 25 mcg Route: IVP; Site: right forearm; ag7 Disposition Summary: 01/15/22 19:09 Discharge Ordered Location: Home [facility] Condition: Stable [facility] Diagnosis - Right inguinal hernia, manual reduction, subsequent visit [facility] Followup: [facility] - With: Private Physician - When: 2 - 3 days - Reason: Recheck today's complaints, Continuance of care, Re-evaluation by your physician Discharge Instructions: - Discharge Summary Sheet [facility] - Inguinal Hernia, Adult [facility] Forms: - Medication Reconciliation Form [facility] - Thank You Letter [facility] - Antibiotic Education [facility] - Prescription Opioid Use [facility] Addendum: 01/18/2022 19:24 Co-signature as Attending Physician, Omari Wang MD. r n Signatures: Teo Alvares PA PA [facility] Omari Wang MD MD rn Glenn, Angela, RN RN ag7 Corrections: (The following items were deleted from the chart) 01/15 16:36 16:33 Home Meds: Hydrocodone-Acetaminophen 5/500 Oral; ag7 ag7 19:02 18:59 This 36 yrs old Black Male presents to ER via EMS with complaints of Inguinal jmm Hernia. [facility] 19:08 19:03 Performed Right Inguinal Hernia Reduction. Patient administered. terell figueredo
[2022-01-15 22:18] VITALS: O2SAT 100
[2022-01-15 22:24] VITALS: BP 103/74; TEMP 97.5
== END 2022-01-15 21:04 | disposition home or self-care (01) ==
LOC: ER 16:12
DX: K40.90 Unilateral inguinal hernia, without obstruction or gangrene, not specified as recurrent (principal)
CPT/HCPCS: 96375; 96374; 99284; J3360; J3010; J2405

== ENCOUNTER 2022-01-17 08:54 | Emergency (ER) | payer OTHER ==
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
[2022-01-17] MEDS ORDERED: ONDANSETRON 4 MG (ODT) TAB ONE (09:12)
[2022-01-17] MEDS ORDERED: FENTANYL CITR 100 MCG/2 ML ONE (09:12)
--- NOTE | 2022-01-17 09:37 | EDPHYS ---
Physician Documentation [facility] Name: Tahir Ag Jr Age: 36 yrs Sex: Male : 1985 Arrival Date: 01/17/2022 Time: 08:55 Bed 16 Private MD: ED Physician Keshawn Fish HPI: 01/17 09:36 This 36 yrs old Black Male presents to ER via EMS with complaints of CHRONIC HERNIA pm1 PAIN. 09:36 Onset: The symptoms/episode began/occurred Chronic issue that reoccurred today. Patient pm1 seen in the ER yesterday for the same complaint and his hernia was reduced at the time. Associated signs and symptoms: The patient has no apparent associated signs or symptoms, Pertinent negatives: abdominal pain, chest pain, diarrhea, shortness of breath, vomiting, Nausea. Modifying factors: The patient symptoms are alleviated by nothing, the patient symptoms are aggravated by nothing. The patient has experienced similar episodes in the past, chronically. The patient has been recently seen at the [facility] Emergency Department, yesterday, for similar complaints. Historical: - Allergies: 08:57 No Known Allergies; jd3 - Home Meds: 08:57 Depakote Oral [Active]; Hydrocodone-Acetaminophen 5/500 Oral [Active]; Trazodone Oral jd3 [Active]; - PMHx: 08:57 Bipolar disorder; Diabetes - NIDDM; Hernia; Hypertension; Schizophrenia; jd3 - PSHx: 08:57 gastrostomy tube; jd3 - Immunization history:: Adult Immunizations unknown. - Social history:: Smoking status: Patient reports the use of cigarette tobacco products. ROS: 09:36 Constitutional: Negative for fever, chills, and weight loss, Cardiovascular: Negative pm1 for chest pain, palpitations, and edema, Respiratory: Negative for shortness of breath, cough, wheezing, and pleuritic chest pain, Abdomen/GI: Negative for abdominal pain, nausea, vomiting, diarrhea, and constipation, Back: Negative for injury and pain, MS/Extremity: Negative for injury and deformity, Skin: Negative for injury, rash, and discoloration, Neuro: Negative for headache, weakness, numbness, tingling, and seizure. 09:36 All other systems are negative. Exam: 09:36 Constitutional: This is a well developed, well nourished patient who is awake, alert, pm1 and in no acute distress. Head/Face: Normocephalic, atraumatic. 09:36 Back: No spinal tenderness. No costovertebral tenderness. Full range of motion. Skin: Warm, dry with normal turgor. Normal color with no rashes, no lesions, and no evidence of cellulitis. MS/ Extremity: Pulses equal, no cyanosis. Neurovascular intact. Full, normal range of motion. 09:36 Cardiovascular: Exam negative for acute changes, Rate: normal, Rhythm: regular, Pulses: no pulse deficits are appreciated, Heart sounds: normal. 09:36 Respiratory: Exam negative for acute changes, respiratory distress, shortness of breath. 09:36 Abdomen/GI: Hernia: noted in the right inguinal area, incarceration, is not appreciated, tenderness, is not appreciated. 09:36 Neuro: Exam negative for acute changes, Orientation: is normal, Mentation: is normal, Motor: is normal, moves all fours. Vital Signs: 09:02 BP 108 / 82; Pulse 77; Resp 16; Temp 98; Pulse Ox 97% ; bp Procedures: 09:34 Performed Manual reduction of right inguinal hernia. Patient placed in Trendelenburg pm1 position and slow steady pressure applied. Easily and successfully reduced and patient tolerated procedure well. MDM: 08:56 Patient medically screened. pm1 09:34 Data reviewed: vital signs. Data interpreted: Pulse oximetry: on room air is 97 %. pm1 Interpretation: normal. Counseling: I had a detailed discussion with the patient and/or guardian regarding: the historical points, exam findings, and any diagnostic results supporting the discharge/admit diagnosis, the need for outpatient follow up, for definitive care, a general surgeon, to return to the emergency department if symptoms worsen or persist or if there are any questions or concerns that arise at home. Administered Medications: 09:14 Drug: fentaNYL (PF) 50 mcg Route: IM; Site: left gluteus; bp 09:52 Follow up: Response: No adverse reaction bp 09:14 Drug: Ondansetron 4 mg Route: PO; bp 09:52 Follow up: Response: No adverse reaction bp Disposition Summary: 01/17/22 09:36 Discharge Ordered Location: Home pm1 Problem: new pm1 Symptoms: have improved pm1 Condition: Stable pm1 Diagnosis - Unilateral inguinal hernia, without obstruction or gangrene, recurrent pm1 Followup: pm1 - With: Emergency Department - When: As needed - Reason: Worsening of condition Followup: pm1 - With: Private Physician - When: 2 - 3 days - Reason: Recheck today's complaints, Continuance of care, Re-evaluation by your physician Discharge Instructions: - Discharge Summary Sheet pm1 - Hernia, Adult pm1 Forms: - Medication Reconciliation Form pm1 - Thank You Letter pm1 - Antibiotic Education pm1 - Prescription Opioid Use pm1 Addendum: 01/20/2022 07:12 Co-signature as Attending Physician, Keshawn Fish MD I agree with the assessment and c fox plan of care. Signatures: Keshawn Fish MD MD cha Marinas, Patrick, [employer] TECHNICIAN pm1 Kilo Reed, RN RN Richard Morris RN RN bp
--- NOTE | 2022-01-17 09:37 | ER ---
Nurse's Notes [facility] Name: Tahir Ag Jr Age: 36 yrs Sex: Male : 1985 Arrival Date: 01/17/2022 Time: 08:55 Bed 16 Private MD: Diagnosis: Unilateral inguinal hernia, without obstruction or gangrene, recurrent Presentation: 01/17 08:55 Chief complaint: EMS states: "inguinal hernia pain. he was seen here yesterday for the jd3 same thing.". Coronavirus screen: At this time, the client does not indicate any symptoms associated with coronavirus-19. Ebola Screen: No symptoms or risks identified at this time. Initial Sepsis Screen: Does the patient meet any 2 criteria? No. Patient's initial sepsis screen is negative. Does the patient have a suspected source of infection? No. Patient's initial sepsis screen is negative. Risk Assessment: Do you want to hurt yourself or someone else? Patient reports no desire to harm self or others. Onset of symptoms was January 17, 2022. 08:55 Method Of Arrival: EMS: [facility] jd3 08:55 Acuity: MARTINA 4 jd3 Triage Assessment: 09:00 General: Appears in no apparent distress. comfortable, Behavior is calm, cooperative, bp appropriate for age. Pain: Complains of pain in pelvis. EENT: No deficits noted. Neuro: No deficits noted. Cardiovascular: No deficits noted. Respiratory: No deficits noted. GI: No deficits noted. : Reports SCROTAL HERNIA. Derm: No deficits noted. Musculoskeletal: No deficits noted. Historical: - Allergies: 08:57 No Known Allergies; jd3 - Home Meds: 08:57 Depakote Oral [Active]; Hydrocodone-Acetaminophen 5/500 Oral [Active]; Trazodone Oral jd3 [Active]; - PMHx: 08:57 Bipolar disorder; Diabetes - NIDDM; Hernia; Hypertension; Schizophrenia; jd3 - PSHx: 08:57 gastrostomy tube; jd3 - Immunization history:: Adult Immunizations unknown. - Social history:: Smoking status: Patient reports the use of cigarette tobacco products. Screenin:58 Abuse screen: Denies threats or abuse. Denies injuries from another. Nutritional bp screening: No deficits noted. Tuberculosis screening: No symptoms or risk factors identified. Fall Risk None identified. Assessment: 08:58 General: PT ON SEVENTH VISIT THIS MONTH FOR SAME S/S, PT NON-COMPLIANT WITH F/U. bp 09:51 Reassessment: PT D/C HOME AMBULATORY, DX WITH INGUINAL HERNIA. bp Vital Signs: 09:02 BP 108 / 82; Pulse 77; Resp 16; Temp 98; Pulse Ox 97% ; bp ED Course: 08:55 Patient arrived in ED. jd3 08:56 Elgin Leal NP is PHCP. pm1 08:56 Keshawn Fish MD is Attending Physician. pm1 08:57 Triage completed. jd3 08:57 Richard Hsieh, RN is Primary Nurse. bp 08:58 Arm band placed on. jd3 08:58 Patient has correct armband on for positive identification. Bed in low position. Call bp light in reach. Side rails up X2. 09:32 SCROTAL HERNIA REDUCTION. bp 09:51 Patient did not have IV access during this emergency room visit. bp Administered Medications: 09:14 Drug: fentaNYL (PF) 50 mcg Route: IM; Site: left gluteus; bp 09:52 Follow up: Response: No adverse reaction bp 09:14 Drug: Ondansetron 4 mg Route: PO; bp 09:52 Follow up: Response: No adverse reaction bp Outcome: 09:36 Discharge ordered by MD. pm1 09:51 Discharged to home ambulatory. bp 09:51 Condition: stable 09:51 Discharge instructions given to patient, Instructed on discharge instructions, follow up and referral plans. Demonstrated understanding of instructions, follow-up care. 09:52 Patient left the ED. bp Signatures: Elgin Leal NP HEAD CHOPPER pm1 Kilo Reed RN RN jRichard Ca, RN RN bp
[2022-01-17 10:08] VITALS: BP 108/82; TEMP 98; O2SAT 97
== END 2022-01-17 09:52 | disposition home or self-care (01) ==
LOC: ER 08:54
DX: K40.90 Unilateral inguinal hernia, without obstruction or gangrene, not specified as recurrent (principal); I10 Essential (primary) hypertension; E11.9 Type 2 diabetes mellitus without complications; F20.9 Schizophrenia, unspecified; F17.210 Nicotine dependence, cigarettes, uncomplicated
CPT/HCPCS: 96372; 99283; J3010

== ENCOUNTER 2022-01-17 20:58 | Emergency (ER) | payer OTHER ==
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
[2022-01-17 21:56] LABS: Urine Blood Negative (Negative); Urine Glucose Negative (Negative); Urine Protein 3+ (Negative); Urine Specific Gravity >=1.030 (1.005-1.030)
[2022-01-17 22:05] LABS: Absolute Lymphocytes (CBC) 2.3 K/uL (0.7-4.9); Lymphocytes % 35.9 % (15.3-44.8); MPV 8.9 fL (7.6-11.3); RBC Red Blood Cell Count 2.98 M/uL (4.33-5.43)
[2022-01-17 22:18] LABS: Barbiturates NEGATIVE (NEGATIVE); Benzodiazepines POSITIVE (NEGATIVE); Cocaine POSITIVE (NEGATIVE); METHAMPHETAM NEGATIVE (NEGATIVE); Methadone NEGATIVE (NEGATIVE); Opiates NEGATIVE (NEGATIVE); Phencyclidine NEGATIVE (NEGATIVE); THC Cannibis NEGATIVE (NEGATIVE)
[2022-01-17 22:25] LABS: Protime INR 1.07
[2022-01-17 22:39] LABS: ALT/SGPT 11 U/L (12-78); AST/SGOT 10 U/L (15-37); Albumin 2.1 g/dL (3.4-5.0); Alkaline Phosphatase 63 U/L (45-117); BUN Blood Urea Nitrogen 7 mg/dL (7-18); Bicarbonate 30 mmol/L (21-32); Bilirubin Total 0.2 mg/dL (0.2-1.0); Potassium 3.1 mmol/L (3.5-5.1); Protein, Total 6.4 g/dL (6.4-8.2); Sodium Level 145 mmol/L (136-145)
[2022-01-17 22:41] LABS: Bilirubin Direct < 0.1 mg/dL (0-0.2); Glucose Level 49 mg/dL (74-106)
[2022-01-17] MEDS ORDERED: POTASSIUM 25 MEQ EFFERV TAB ONE (23:17)
--- NOTE | 2022-01-18 02:43 | ER ---
Nurse's Notes [facility] Name: Tahir Ag Jr Age: 36 yrs Sex: Male : 1985 Arrival Date: 01/17/2022 Time: 21:00 Bed 7 Private MD: Diagnosis: Major Depression, Suicidal Ideation;Cocaine Abuse Presentation: 01/17 21:10 Chief complaint: EMS states: they were toned out for report of pt with suicidal bb ideations. Coronavirus screen: At this time, the client does not indicate any symptoms associated with coronavirus-19. Ebola Screen: No symptoms or risks identified at this time. Initial Sepsis Screen: Does the patient meet any 2 criteria? No. Patient's initial sepsis screen is negative. Does the patient have a suspected source of infection? No. Patient's initial sepsis screen is negative. Risk Assessment: Do you want to hurt yourself or someone else? Patient reports desire/thoughts of hurting themselves or someone else. Provider notified. Onset of symptoms was January 17, 2022. 21:10 Method Of Arrival: EMS: [facility] 21:10 Acuity: MARTINA 2 bb Historical: - Allergies: 21:21 No Known Allergies; bb - Home Meds: 21:21 trazodone 50 mg oral tab 1 tab nightly [Active]; hydroxyzine HCl 50 mg Oral tab PRN bb anxiety [Active]; divalproex 250 mg oral TbEC 1 tab 2 times per day [Active]; - PMHx: 21:21 Bipolar disorder; Diabetes - NIDDM; Hernia; Hypertension; Schizophrenia; bb 01/18 05:39 Achalasia; bb - PSHx: 01/17 21:21 gastrostomy tube; bb - Immunization history:: Client reports receiving the 1st dose of the Covid vaccine, Moderna. - Social history:: Smoking status: Patient reports the use of cigarette tobacco products, smokes one pack cigarettes per day. Screenin:24 Abuse screen: Denies threats or abuse. Nutritional screening: pt is emaciated . bb Tuberculosis screening: No symptoms or risk factors identified. Fall Risk None identified. Assessment: 21:24 General: Appears in no apparent distress. emaciated, Behavior is calm, cooperative. bb Pain: Complains of pain in right groin Pain currently is 10 out of 10 on a pain scale. Neuro: Level of Consciousness is awake, alert, obeys commands, Oriented to person, place, time, situation. Cardiovascular: Capillary refill < 3 seconds Patient's skin is warm and dry. Rhythm is sinus rhythm. Respiratory: Airway is patent Respiratory effort is even, unlabored, Respiratory pattern is regular. GI: Abdomen is non-distended, enlarged testicle, PEG tube. Derm: Skin is dry, Skin is normal, Skin temperature is warm. Musculoskeletal: Circulation, motion, and sensation intact. 22:54 Reassessment: Patient is alert, oriented x 3, equal unlabored respirations, skin bb warm/dry/pink. pt eating snack. 01/18 00:34 Reassessment: pt sleeping, eyes closed, resp unlabored. bb 02:00 Reassessment: pt sleeping, eyes closed, resp unlabored, awaiting evaluation by [facility]. 05:17 Reassessment: spoke to Miladis MACK with [facility] for nurse bb to nurse. Pt sleeping, eyes closed, resp unlabored. 06:30 Reassessment: pt sleeping, eyes closed, resp unlabored, awaiting transfer to psych bb facility for further evaluation and treatment. 07:00 Reassessment: Report received from slot shift manager RN. Resting, appears comfortable. SI ll1 precautions intact. See Suicide continuation screening packet for further details. Psych: 01/17 21:27 [place] Suicide Severity Screening: "In the past month, have you actually had any bb thoughts of killing yourself?" Patient responds "yes." Based off the client's response additional [place] suicide severity screening questions to be further documented on paper forms. Subjective: Patient's mood is sad. Objective: Patient is cooperative, Speech is normal, Affect is appropriate. Interventions: Removed personal items and placed in bag. Patient placed in hospital gown. Searched person for dangerous items. Urine collected and sent for urine drug test. Belonging list filled out. Safety Checks: Personal items have been removed. Door is open. 21:28 [place] Suicide Severity Screening: "In your lifetime, have you ever done anything, bb started to do anything, or prepared to do anything to end your life?" Patient responds "yes." Patient reports suicidal intent within 3 past months. 22:22 Patient uses benzodiazepines Patient uses cocaine. 01/18 07:45 Commitment: Patient will be a voluntary commitment. [email or web address] 07:50 [place] Suicide Severity Screening: In the past month, have you wished you were ll1 or wished you could go to sleep and not wake up? Patient responds "No.". Vital Signs: 01/17 21:10 BP 96 / 65; Pulse 86; Resp 16 S; Temp 99(O); Pulse Ox 97% on R/A; Weight 47.63 kg (R); bb Height 5 ft. 5 in. (165.10 cm) (R); Pain 10/10; 01/18 07:47 BP 107 / 52; Pulse 80; Resp 17; Temp 98.5(O); Pulse Ox 98% ; Pain 0/10; 6 01/17 21:10 Body Mass Index 17.47 (47.63 kg, 165.10 cm) ED Course: 01/17 21:00 Patient arrived in ED. [email or web address] 21:04 Alan Nguyễn MD is Attending Physician. 7 21:19 Trupti Juarez, RN is Primary Nurse. bb 21:21 Triage completed. bb 21:21 Arm band placed on Patient placed in an exam room, on a stretcher, suicidal precautions bb initiated. 21:24 Patient has correct armband on for positive identification. Bed in low position. Call bb light in reach. Side rails up X2. Valuables inventory done. sent to Security. 22:49 Diet: Patient given snack. sandwich, pudding, soda. 01/18 00:05 contacted [facility] Crisis Line spoke to Dixie to have a screener evaluate the [facility] patient. 02:25 patient speaking with Arnol from [facility]. 2 02:42 Warm blanket given. PO fluids given. [facility] 03:59 faxed patient clinicals to all available psych facilities. 2 05:22 Nurse [address] Nurse from [facility]. 2 06:02 administrative approval given by Holly Carter/ patient has been accepted to [place] [id number] [address]/ Dr. Wilson accepted the patient in transfer. 07:05 Report given to Macrina MACK. bb 07:44 No provider procedures requiring assistance completed. 6 07:50 Patient did not have IV access during this emergency room visit. ll1 Administered Medications: 01/17 23:17 Drug: Potassium Effervescent Tablet 50 mEq Route: PO; bb 01/18 07:06 Follow up: Response: No adverse reaction dominic Point of Care Testing: Blood Glucose: 01/17 22:52 Blood Glucose: 96 mg/dL; sm5 Ranges: Outcome: 01/18 02:43 ER care complete, transfer ordered by MD. lewis 07:45 Transferred by ground EMS Note: Pt transferred to [place] [id number] 07:45 Condition: stable 07:45 Instructed on the need for transfer, Demonstrated understanding of instructions. 07:50 Patient left the ED. 1 Signatures: Trupti Juarez RN RN Enedina Waldrop 2 Macrina Connolly RN RN 1 Alan Nguyễn MD MD 7 Kandace Narayan Jennifer, RN RN 6 Yaneth Ruggiero RN RN 5
--- NOTE | 2022-01-18 02:43 | EDPHYS ---
Physician Documentation [facility] Name: Tahir Ag Jr Age: 36 yrs Sex: Male : 1985 Arrival Date: 01/17/2022 Time: 21:00 Bed 7 Private MD: ED Physician Alan Nguyễn HPI: 01/17 21:25 This 36 yrs old Black Male presents to ER via EMS with complaints of Suicidal Ideation. mh7 21:25 The patient presents to the emergency department with depression, over unknown mh7 circumstances, suicide ideation, but the patient has no formulated plan. Onset: The symptoms/episode began/occurred today. Past psychiatric history: Prior diagnosis: bipolar disorder, schizophrenia, Anxiety, Psychiatric medications include: Trazadone, Depakote, Hydroxyzine, Primary psychiatric physician: the patient does not have a primary psychiatric physician, the patient has not had a prior suicide gesture, the patient does not have a previous inpatient psychiatric history, the patient's last psychiatric treatment was none. Associated signs and symptoms: Pertinent positives; depression, Pertinent negatives: abdominal pain, anxiety, chest pain, chills, delusions, fever, hallucinations, headache, homicidal ideation, nausea, night sweats, palpitations, paranoia, shortness of breath, substance abuse, suicide ideation, tremor, vomiting. Severity of symptoms: At their worst the symptoms were moderate today, in the emergency department the symptoms have improved moderately. Historical: - Allergies: 21:21 No Known Allergies; bb - Home Meds: 21:21 trazodone 50 mg oral tab 1 tab nightly [Active]; hydroxyzine HCl 50 mg Oral tab PRN bb anxiety [Active]; divalproex 250 mg oral TbEC 1 tab 2 times per day [Active]; - PMHx: 21:21 Bipolar disorder; Diabetes - NIDDM; Hernia; Hypertension; Schizophrenia; bb 01/18 05:39 Achalasia; bb - PSHx: 01/17 21:21 gastrostomy tube; bb - Immunization history:: Client reports receiving the 1st dose of the Covid vaccine, Moderna. - Social history:: Smoking status: Patient reports the use of cigarette tobacco products, smokes one pack cigarettes per day. ROS: 21:25 Constitutional: Negative for fever, chills, and weight loss, Eyes: Negative for injury, mh7 pain, redness, and discharge, ENT: Negative for injury, pain, and discharge, Neck: Negative for injury, pain, and swelling, Cardiovascular: Negative for chest pain, palpitations, and edema, Respiratory: Negative for shortness of breath, cough, wheezing, and pleuritic chest pain, Abdomen/GI: Negative for abdominal pain, nausea, vomiting, diarrhea, and constipation, Back: Negative for injury and pain, : Negative for injury, bleeding, discharge, and swelling, MS/Extremity: Negative for injury and deformity, Skin: Negative for injury, rash, and discoloration, Neuro: Negative for headache, weakness, numbness, tingling, and seizure, Allergy/Immunology: Negative for hives, rash, and allergies, Endocrine: Negative for neck swelling, polydipsia, polyuria, polyphagia, and marked weight changes, Hematologic/Lymphatic: Negative for swollen nodes, abnormal bleeding, and unusual bruising. Exam: 21:25 Constitutional: This is a well developed, well nourished patient who is awake, alert, mh7 and in no acute distress. Head/Face: Normocephalic, atraumatic. Eyes: Pupils equal round and reactive to light, extra-ocular motions intact. Lids and lashes normal. Conjunctiva and sclera are non-icteric and not injected. Cornea within normal limits. Periorbital areas with no swelling, redness, or edema. Neck: Trachea midline, no thyromegaly or masses palpated, and no cervical lymphadenopathy. Supple, full range of motion without nuchal rigidity, or vertebral point tenderness. No Meningismus. Chest/axilla: Normal chest wall appearance and motion. Nontender with no deformity. No lesions are appreciated. Cardiovascular: Regular rate and rhythm with a normal S1 and S2. No gallops, murmurs, or rubs. Normal PMI, no JVD. No pulse deficits. Respiratory: Lungs have equal breath sounds bilaterally, clear to auscultation and percussion. No rales, rhonchi or wheezes noted. No increased work of breathing, no retractions or nasal flaring. Abdomen/GI: Soft, non-tender, with normal bowel sounds. No distension or tympany. No guarding or rebound. No evidence of tenderness throughout. Skin: Warm, dry with normal turgor. Normal color with no rashes, no lesions, and no evidence of cellulitis. MS/ Extremity: Pulses equal, no cyanosis. Neurovascular intact. Full, normal range of motion. Neuro: Awake and alert, GCS 15, oriented to person, place, time, and situation. Cranial nerves II-XII grossly intact. Motor strength 5/5 in all extremities. Sensory grossly intact. Cerebellar exam normal. Normal gait. 21:25 Psych: Behavior/mood is cooperative, depressed, Affect is calm, Oriented to person, place, time, Patient having thoughts of suicide. Denies suicidal plan. Judgement / Insight is normal. Memory is normal. Delusions/hallucinations are not present. 21:25 ECG was reviewed by the Attending Physician. [facility] Vital Signs: 21:10 BP 96 / 65; Pulse 86; Resp 16 S; Temp 99(O); Pulse Ox 97% on R/A; Weight 47.63 kg (R); bb Height 5 ft. 5 in. (165.10 cm) (R); Pain 10/10; 01/18 07:47 BP 107 / 52; Pulse 80; Resp 17; Temp 98.5(O); Pulse Ox 98% ; Pain 0/10; jh6 01/17 21:10 Body Mass Index 17.47 (47.63 kg, 165.10 cm) bb MDM: 02:37 Differential diagnosis: drug withdrawal. depression, suicidal ideation. Data reviewed: [facility] vital signs, nurses notes, old medical records, lab test result(s), CBC, electrolytes, urinalysis, urine drug screen, EKG. 02:40 Data interpreted: Pulse oximetry: on room air is 97 %. Interpretation: normal. [facility] Counseling: I had a detailed discussion with the patient and/or guardian regarding: the historical points, exam findings, and any diagnostic results supporting the discharge/admit diagnosis, lab results, the need to transfer to another facility, [facility] does not immediately have the required specialist. Response to treatment: the patient's symptoms have mildly improved after treatment. 02:43 Patient medically screened. [facility] 01/17 21:05 Order name: Acetaminophen; Complete Time: 22:44 [facility] 01/17 21:05 Order name: Basic Metabolic Panel; Complete Time: 22:44 [facility] 01/17 21:05 Order name: CBC with Diff; Complete Time: 22:40 [facility] 01/17 21:05 Order name: ETOH Level; Complete Time: 22:44 7 01/17 21:05 Order name: Hepatic Function; Complete Time: 22:44 7 01/17 21:05 Order name: PT-INR; Complete Time: 22:40 7 01/17 21:05 Order name: Ptt, Activated; Complete Time: 22:40 7 01/17 21:05 Order name: Salicylate; Complete Time: 22:40 7 01/17 21:05 Order name: Urine Drug Screen; Complete Time: 22:40 7 01/17 21:56 Order name: Urine Dipstick-Ancillary; Complete Time: 22:40 EDMS 01/17 21:59 Order name: Valproic Acid (Depakene) Level; Complete Time: 22:44 EDMS 01/17 22:58 Order name: Glucose, Ancillary Testing; Complete Time: 22:58 EDMS 01/18 02:41 Order name: COVID-19/FLU A+B (Document "Date of Onset" if Symptomatic); Complete Time: mw2 03:50 01/17 21:05 Order name: EKG; Complete Time: 21:06 7 01/17 21:05 Order name: EKG - Nurse/Tech; Complete Time: 21:26 7 01/17 21:05 Order name: Labs collected and sent; Complete Time: 21:39 7 01/17 21:05 Order name: Suicide Precautions; Complete Time: 21:27 7 01/17 21:05 Order name: Suicide Screening ([place]); Complete Time: 21:27 7 01/17 21:05 Order name: Urine Dipstick-Ancillary (obtain specimen); Complete Time: 21:39 7 01/17 22:57 Order name: PO challenge; Complete Time: 23:01 mh7 EC/27 21:25 Rate is 87 beats/min. Rhythm is regular, Normal Sinus Rhythm with No ectopy. QRS [place] 7 is Normal. VT interval is normal. QRS interval is normal. QT interval is normal. No Q waves. T waves are Normal. No ST changes noted. Clinical impression: Normal ECG. Administered Medications: 23:17 Drug: Potassium Effervescent Tablet 50 mEq Route: PO; bb 01/18 07:06 Follow up: Response: No adverse reaction Point of Care Testing: Blood Glucose: 01/17 22:52 Blood Glucose: 96 mg/dL; sm5 Ranges: Critical Glucose Levels:Adult <50 mg/dl or >400 mg/dl <40 mg/dl or >180 mg/dl Disposition Summary: 01/18/22 02:43 Transfer Ordered Transfer Location: [facility] Reason: Higher level of care mh7 Condition: Stable mh7 Problem: new mh7 Symptoms: have improved mh7 Accepting Physician: Dr. Giovanni aMi(01/18/22 07:50) ll1 Diagnosis - Major Depression, Suicidal Ideation mh7 - Cocaine Abuse mh7 Forms: - Medication Reconciliation Form mh7 - SBAR form 7 Signatures: Dispatcher [employer] EDTrupti Rosado RN RN bb Macrina Connolly RN RN ll1 Alan Nguyễn MD MD 7 Corrections: (The following items were deleted from the chart) 21:39 21:05 IV Saline Lock ordered. [facility] bb 21:59 21:25 VALPROIC ACID (DEPAKOTE)+C.LAB.BRZ ordered. EDTN EDMS 01/18 06:04 02:43 Dr. Moiz [email or web address] 7 07:50 06:04 Dr. Giovanni Mai 7 1
[2022-01-18 03:42] LABS: SARS-COV-2 RT PCR NEGATIVE (NEGATIVE)
[2022-01-18 08:26] VITALS: BP 107/52; TEMP 98.5; O2SAT 98
--- NOTE | 2022-01-18 09:27 | EKG ---
Test Date: 2022-01-17 Test Time: 21:09:19 Palliative Care Nurse: JENN MEASUREMENT RESULTS: Intervals: Rate: 87 DC: 140 QRSD: 72 QT: 378 QTc: 454 [place]: P: 62 DC: 140 QRS: 67 T: 72 INTERPRETIVE STATEMENTS: Normal sinus rhythm Normal ECG Compared to ECG 10/12/2021 10:48:58 No significant changes Electronically Signed On 01-18-22 09:25:44 CDT by Grant Bill
== END 2022-01-18 07:50 ==
LOC: ER 20:58
DX: R45.851 Suicidal ideations (principal); F32.9 Major depressive disorder, single episode, unspecified; F14.10 Cocaine abuse, uncomplicated; E11.9 Type 2 diabetes mellitus without complications; F20.9 Schizophrenia, unspecified; F17.210 Nicotine dependence, cigarettes, uncomplicated; I10 Essential (primary) hypertension; Z20.822 Contact with and (suspected) exposure to COVID-19
CPT/HCPCS: 93005; 85025; 80048; 36415; 80320; 80329 ×2; 85610; 82947; 80076; 80164; 85730; 81003; 0240U; 80307; 99285

== ENCOUNTER 2022-01-18 14:05 | Emergency (ER) | payer OTHER ==
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
--- NOTE | 2022-01-18 14:34 | EDPHYS ---
Physician Documentation [facility] Name: Tahir Ag Jr Age: 36 yrs Sex: Male : 1985 Arrival Date: 01/18/2022 Time: 14:06 Bed 8 Private MD: ED Physician Keshawn Fish HPI: 01/18 14:27 This 36 yrs old Black Male presents to ER via EMS with complaints of Psych Problem. daniel 14:27 The patient presents to the emergency department with depression, over unknown daniel circumstances. Onset: The symptoms/episode began/occurred 1 day(s) ago. Past psychiatric history: Prior diagnosis: bipolar disorder, depression. Associated signs and symptoms: The patient has no apparent associated signs or symptoms. Severity of symptoms: At their worst the symptoms were mild in the emergency department the symptoms are unchanged. The patient has experienced similar episodes in the past, several times. Historical: - Allergies: 14:09 No Known Allergies; ll1 - PMHx: 14:09 achalasia; Bipolar disorder; Diabetes - NIDDM; Hernia; Hypertension; Schizophrenia; ll1 - PSHx: 14:09 gastrostomy tube; ll1 - Immunization history:: Adult Immunizations up to date. - Social history:: Smoking status: Patient denies any tobacco usage or history of. ROS: 14:30 Constitutional: Negative for fever, chills, and weight loss, Eyes: Negative for injury, daniel pain, redness, and discharge, ENT: Negative for injury, pain, and discharge, Neck: Negative for injury, pain, and swelling, Cardiovascular: Negative for chest pain, palpitations, and edema, Respiratory: Negative for shortness of breath, cough, wheezing, and pleuritic chest pain, Abdomen/GI: Negative for abdominal pain, nausea, vomiting, diarrhea, and constipation, Back: Negative for injury and pain, : Negative for injury, bleeding, discharge, and swelling, MS/Extremity: Negative for injury and deformity, Skin: Negative for injury, rash, and discoloration, Neuro: Negative for headache, weakness, numbness, tingling, and seizure, Psych: Negative for depression, anxiety, suicide ideation, homicidal ideation, and hallucinations, Allergy/Immunology: Negative for hives, rash, and allergies, Endocrine: Negative for neck swelling, polydipsia, polyuria, polyphagia, and marked weight changes, Hematologic/Lymphatic: Negative for swollen nodes, abnormal bleeding, and unusual bruising. Exam: 14:30 Constitutional: This is a well developed, well nourished patient who is awake, alert, daniel and in no acute distress. Head/Face: Normocephalic, atraumatic. Eyes: Pupils equal round and reactive to light, extra-ocular motions intact. Lids and lashes normal. Conjunctiva and sclera are non-icteric and not injected. Cornea within normal limits. Periorbital areas with no swelling, redness, or edema. ENT: Nares patent. No nasal discharge, no septal abnormalities noted. Tympanic membranes are normal and external auditory canals are clear. Oropharynx with no redness, swelling, or masses, exudates, or evidence of obstruction, uvula midline. Mucous membranes moist. Neck: Trachea midline, no thyromegaly or masses palpated, and no cervical lymphadenopathy. Supple, full range of motion without nuchal rigidity, or vertebral point tenderness. No Meningismus. Chest/axilla: Normal chest wall appearance and motion. Nontender with no deformity. No lesions are appreciated. Cardiovascular: Regular rate and rhythm with a normal S1 and S2. No gallops, murmurs, or rubs. Normal PMI, no JVD. No pulse deficits. Respiratory: Lungs have equal breath sounds bilaterally, clear to auscultation and percussion. No rales, rhonchi or wheezes noted. No increased work of breathing, no retractions or nasal flaring. Abdomen/GI: Soft, non-tender, with normal bowel sounds. No distension or tympany. No guarding or rebound. No evidence of tenderness throughout. Back: No spinal tenderness. No costovertebral tenderness. Full range of motion. Male : Normal genitalia with no discharge or lesions. Skin: Warm, dry with normal turgor. Normal color with no rashes, no lesions, and no evidence of cellulitis. MS/ Extremity: Pulses equal, no cyanosis. Neurovascular intact. Full, normal range of motion. Neuro: Awake and alert, GCS 15, oriented to person, place, time, and situation. Cranial nerves II-XII grossly intact. Motor strength 5/5 in all extremities. Sensory grossly intact. Cerebellar exam normal. Normal gait. Psych: Awake, alert, with orientation to person, place and time. Behavior, mood, and affect are within normal limits. 14:30 Abdomen/GI: Inspection: bruising, Bowel sounds: normal, Palpation: abdomen is soft and non-tender, Liver: no appreciated palpable abnormalities, Hernia: not appreciated. Vital Signs: 14:06 BP 116 / 70; Pulse 76; Resp 18; Temp 98.0; Pulse Ox 97% ; Pain 0/10; ll1 MDM: 14:06 Patient medically screened. daniel 14:31 Differential diagnosis: depression. Data reviewed: vital signs, nurses notes. Data daniel interpreted: classroom monitor: rate is 76 beats/min, rhythm is regular. Test interpretation: by ED physician or midlevel provider:. 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 Administered Medications: No medications were administered Disposition Summary: 01/18/22 14:33 Discharge Ordered Location: Home daniel Problem: new daniel Symptoms: have improved daniel Condition: Stable daniel Diagnosis - Adjustment disorder with depressed mood daniel - Encounter for attention to gastrostomy daniel Followup: daniel - With: Private Physician - When: 2 - 3 days - Reason: Recheck today's complaints, Continuance of care, Re-evaluation by your physician Followup: daniel - With: Gerald Paniagua MD - When: 2 - 3 days - Reason: Recheck today's complaints, Re-evaluation by your physician Discharge Instructions: - Discharge Summary Sheet daniel - Adjustment Disorder, Adult daniel - Gastrostomy Tube Home Guide, Adult daniel - PEG Tube Home Guide daniel Forms: - Medication Reconciliation Form daniel - Thank You Letter daniel - Antibiotic Education daniel - Prescription Opioid Use daniel Signatures: Keshawn Fish MD MD cha Lewis, Lynsay, RN RN ll1
--- NOTE | 2022-01-18 14:34 | ER ---
Nurse's Notes [facility] Name: Tahir Ag Jr Age: 36 yrs Sex: Male : 1985 Arrival Date: 01/18/2022 Time: 14:06 Bed 8 Private MD: Diagnosis: Adjustment disorder with depressed mood;Encounter for attention to gastrostomy Presentation: 01/18 14:06 Chief complaint: Patient states: Returned from inpatient psych facility that refused to ll1 receive patient (secondary to PEG tube). No complaints of SI or HI now. Coronavirus screen: Client denies travel out of the [place] in the last 14 days. At this time, the client does not indicate any symptoms associated with coronavirus-19. Ebola Screen: Patient denies travel to an Ebola-affected area in the 21 days before illness onset. Initial Sepsis Screen: Does the patient meet any 2 criteria? No. Patient's initial sepsis screen is negative. Does the patient have a suspected source of infection? No. Patient's initial sepsis screen is negative. Risk Assessment: Do you want to hurt yourself or someone else? Patient reports no desire to harm self or others. Onset of symptoms was January 17, 2022. 14:06 Method Of Arrival: EMS ll1 14:06 Acuity: MARTINA 5 ll1 Triage Assessment: 14:09 General: Appears in no apparent distress. Behavior is calm, cooperative, appropriate ll1 for age. Pain: Denies pain. GI: Reports nausea. Historical: - Allergies: 14:09 No Known Allergies; ll1 - PMHx: 14:09 achalasia; Bipolar disorder; Diabetes - NIDDM; Hernia; Hypertension; Schizophrenia; ll1 - PSHx: 14:09 gastrostomy tube; ll1 - Immunization history:: Adult Immunizations up to date. - Social history:: Smoking status: Patient denies any tobacco usage or history of. Screenin:09 Abuse screen: Denies threats or abuse. Nutritional screening: No deficits noted. ll1 Tuberculosis screening: No symptoms or risk factors identified. 14:38 Fall Risk Total [place] Fall Scale indicates No Risk (0-24 pts). ll1 Assessment: 14:38 Reassessment: No changes from previously documented assessment. Patient and/or family ll1 updated on plan of care and expected duration. Pain level reassessed. Patient is alert, oriented x 3, equal unlabored respirations, skin warm/dry/pink. GI: Abdomen is round. Vital Signs: 14:06 BP 116 / 70; Pulse 76; Resp 18; Temp 98.0; Pulse Ox 97% ; Pain 0/10; ll1 ED Course: 14:06 Patient arrived in ED. ll1 14:06 Keshawn Fish MD is Attending Physician. [facility] 14:09 Triage completed. ll1 14:09 Arm band placed on Patient placed in an exam room, on a stretcher. ll1 14:10 Macrina Connolly, RN is Primary Nurse. ll1 14:10 Patient has correct armband on for positive identification. Bed in low position. Call ll1 light in reach. Side rails up X 1. Pulse ox on. NIBP on. 14:33 Geradl Paniagua MD is Referral Physician. [facility] 14:38 No provider procedures requiring assistance completed. Patient did not have IV access ll1 during this emergency room visit. Administered Medications: No medications were administered Outcome: 14:33 Discharge ordered by . [facility] 14:38 Discharged to home ambulatory. ll1 14:38 Condition: stable 14:38 Discharge instructions given to patient, Instructed on discharge instructions, follow up and referral plans. Demonstrated understanding of instructions, follow-up care. 14:38 Patient left the ED. 1 Signatures: Keshawn Fish MD MD cha Lewis, Lynsay, RN RN 1 Corrections: (The following items were deleted from the chart) 14:11 14:06 Chief complaint: Patient states: Returned from inpatient psych facility that 1 refused to receive patient. No complaints of SI or HI now. ll1
[2022-01-18 14:42] VITALS: BP 116/70; TEMP 98; O2SAT 97
== END 2022-01-18 14:38 | disposition home or self-care (01) ==
LOC: ER 14:05
DX: F43.21 Adjustment disorder with depressed mood (principal); Z43.1 Encounter for attention to gastrostomy; F20.9 Schizophrenia, unspecified
CPT/HCPCS: 99283

== ENCOUNTER 2022-01-21 08:31 | Emergency (ER) | payer OTHER ==
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
--- NOTE | 2022-01-21 08:40 | EDPHYS ---
Physician Documentation [facility] Name: Tahir Ag Jr Age: 36 yrs Sex: Male : 1985 Arrival Date: 01/21/2022 Time: 08:32 Bed 18 Private MD: ED Physician Omari Wagn HPI: 01/21 08:34 This 36 yrs old Black Male presents to ER via EMS with complaints of right groin jmm swelling. 08:34 The patient presents with scrotal pain, swelling. Onset: The symptoms/episode jmm began/occurred gradually. Modifying factors: The symptoms are alleviated by nothing, the symptoms are aggravated by nothing. Associated signs and symptoms: Pertinent negatives: abdominal pain, constipation, diarrhea. This is a 36 year old male with a history of achalasia, bipolar, dm, htn that presents to the ED with complaints of right groin swelling beginning today. Denies vomiting, abdominal pain, diarrhea. This has happened many times previously. . Historical: - Home Meds: 08:36 divalproex 250 mg Oral TbEC 1 tab 2 times per day [Active]; hydroxyzine HCl 50 mg Oral fox tab PRN anxiety [Active]; trazodone 50 mg Oral tab 1 tab nightly [Active]; - PMHx: 08:36 achalasia; Bipolar disorder; Diabetes - NIDDM; Hernia; Hypertension; Schizophrenia; fox - PSHx: 08:36 gastrostomy tube; fox - Immunization history:: Adult Immunizations up to date. - Social history:: Smoking status: . ROS: 08:34 Constitutional: Negative for fever, chills, and weight loss, Cardiovascular: Negative jmm for chest pain, palpitations, and edema, Respiratory: Negative for shortness of breath, cough, wheezing, and pleuritic chest pain. 08:34 : Positive for 08:34 All other systems are negative. Exam: 08:34 Constitutional: This is a well developed, well nourished patient who is awake, alert, jmm and in no acute distress. Head/Face: atraumatic. Eyes: EOMI, no conjunctival erythema appreciated ENT: Moist Mucus Membranes Neck: Trachea midline, Supple Chest/axilla: Normal chest wall appearance and motion. Cardiovascular: Regular rate and rhythm. No edema appreciated Respiratory: Normal respirations, no respiratory distress appreciated Abdomen/GI: Non distended, soft 08:34 Back: Normal ROM 08:34 Back: pain. 08:34 : Large right inguinal mass noted which extends into the scrotum. 08:34 Skin: Appearance: Color: normal in color. 08:34 Neuro: Orientation: is normal, Mentation: is normal, Memory: is normal. 08:34 Psych: Behavior/mood is pleasant, cooperative. Vital Signs: 08:35 BP 122 / 85; Pulse 61; Resp 17; Temp 98.6(O); Pulse Ox 100% ; Weight 47.63 kg; Height 5 fox ft. 5 in. (165.10 cm); 08:35 Body Mass Index 17.47 (47.63 kg, 165.10 cm) fox Procedures: 09:33 Performed Hernia reduction. Large right inguinal hernia was reduced with gentle [facility] pressure, patient was placed in the reverse Trendelenburg position. Patient tolerated the procedure well. MDM: 08:34 Patient medically screened. [facility] 08:38 Data reviewed: vital signs, nurses notes. Counseling: I had a detailed discussion with terell the patient and/or guardian regarding: the historical points, exam findings, and any diagnostic results supporting the discharge/admit diagnosis, the need for outpatient follow up, to return to the emergency department if symptoms worsen or persist or if there are any questions or concerns that arise at home. Administered Medications: 08:48 Drug: [place] (HYDROcodone-acetaminophen) 10 mg-325 mg 1 tabs Route: PO; fox 08:48 Follow up: Response: No adverse reaction fox Disposition: 18:46 Co-signature as Attending Physician, Omari Wang MD I agree with the assessment and rn plan of care. Attestation: The patient's history, exam findings, diagnostics, and a summary of any interventions or procedures was reviewed in detail with Teo DAVIS. Disposition Summary: 01/21/22 08:39 Discharge Ordered Location: Home [facility] Condition: Stable mandie Diagnosis - Inguinal Hernia [facility] Followup: mandie - With: Milton Ramírez MD - When: 2 - 3 days - Reason: Recheck today's complaints, Continuance of care, Re-evaluation by your physician Discharge Instructions: - Discharge Summary Sheet [facility] - Inguinal Hernia, Adult [facility] Forms: - Medication Reconciliation Form [facility] - Thank You Letter jmm - Antibiotic Education jmm - Prescription Opioid Use jmm Signatures: Teo Alvares PA PA jmm Omari Wang MD MD rn Brenda Kong RN RN fox
--- NOTE | 2022-01-21 08:40 | ER ---
Nurse's Notes [facility] Name: Tahir Ag Jr Age: 36 yrs Sex: Male : 1985 Arrival Date: 01/21/2022 Time: 08:32 Bed 18 Private MD: Diagnosis: Inguinal Hernia Presentation: 01/21 08:35 Chief complaint: Patient states: abdominal pain d/t hernia. Coronavirus screen: Vaccine fox status: Patient reports being unvaccinated. Ebola Screen: Patient denies travel to an Ebola-affected area in the 21 days before illness onset. Initial Sepsis Screen: Does the patient meet any 2 criteria? No. Patient's initial sepsis screen is negative. Does the patient have a suspected source of infection? No. Patient's initial sepsis screen is negative. Risk Assessment: Do you want to hurt yourself or someone else? Patient reports no desire to harm self or others. Onset of symptoms is unknown. 08:35 Method Of Arrival: EMS: [facility] 08:35 Acuity: MARTINA 3 fox Triage Assessment: 08:36 General: Appears emaciated, Behavior is calm. Pain: Complains of pain in abdomen. fox Historical: - Home Meds: 08:36 divalproex 250 mg Oral TbEC 1 tab 2 times per day [Active]; hydroxyzine HCl 50 mg Oral fox tab PRN anxiety [Active]; trazodone 50 mg Oral tab 1 tab nightly [Active]; - PMHx: 08:36 achalasia; Bipolar disorder; Diabetes - NIDDM; Hernia; Hypertension; Schizophrenia; fox - PSHx: 08:36 gastrostomy tube; fox - Immunization history:: Adult Immunizations up to date. - Social history:: Smoking status: . Screenin:38 Abuse screen: Denies threats or abuse. Denies injuries from another. Nutritional fox screening: No deficits noted. Tuberculosis screening: No symptoms or risk factors identified. Fall Risk None identified. Assessment: 08:38 General: Appears emaciated, Behavior is calm, cooperative. Pain: Complains of pain in fox abdomen. Vital Signs: 08:35 BP 122 / 85; Pulse 61; Resp 17; Temp 98.6(O); Pulse Ox 100% ; Weight 47.63 kg; Height 5 fox ft. 5 in. (165.10 cm); 08:35 Body Mass Index 17.47 (47.63 kg, 165.10 cm) fox ED Course: 08:32 Patient arrived in ED. ds1 08:34 Teo Alvares PA is PHCP. [facility] 08:34 Omari Wang MD is Attending Physician. [facility] 08:36 Triage completed. fox 08:36 Arm band placed on. fox 08:38 Bed in low position. fox 08:39 Milton Ramírez MD is Referral Physician. [facility] 08:40 Brenda Kong, RN is Primary Nurse. fox 08:48 No provider procedures requiring assistance completed. Patient did not have IV access fox during this emergency room visit. Administered Medications: 08:48 Drug: [place] (HYDROcodone-acetaminophen) 10 mg-325 mg 1 tabs Route: PO; fox 08:48 Follow up: Response: No adverse reaction fox Outcome: 08:39 Discharge ordered by . [facility] 08:48 Discharged to home fox 08:48 Condition: good 08:48 Discharge instructions given to patient. 08:49 Patient left the ED. fox Signatures: Teo Alvares PA PA jmm San[place], Demi ds1 Brenda Kong, RN RN fox
[2022-01-21] MEDS ORDERED: HYDROCODONE/APAP 10/325 TAB ONE (08:44)
[2022-01-21 08:52] VITALS: BP 122/85; TEMP 98.6; O2SAT 100
== END 2022-01-21 08:49 | disposition home or self-care (01) ==
LOC: ER 08:31
DX: K40.90 Unilateral inguinal hernia, without obstruction or gangrene, not specified as recurrent (principal); E11.9 Type 2 diabetes mellitus without complications; F20.9 Schizophrenia, unspecified; I10 Essential (primary) hypertension
CPT/HCPCS: 99283

== ENCOUNTER 2022-01-22 15:51 | Emergency (ER) | payer OTHER ==
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
[2022-01-22] MEDS ORDERED: ONDANSETRON 4 MG/2 ML VIAL ONE (17:08)
[2022-01-22] MEDS ORDERED: FENTANYL CITR 100 MCG/2 ML ONE (17:08)
[2022-01-22] MEDS ORDERED: NA CHLORIDE 0.9% 500 ML ONE (17:08)
--- NOTE | 2022-01-22 17:39 | EDPHYS ---
Physician Documentation [facility] Name: Tahir Ag Jr Age: 36 yrs Sex: Male : 1985 Arrival Date: 01/22/2022 Time: 15:54 Bed 8 Private MD: ED Physician Omari Wang HPI: 01/22 17:00 This 36 yrs old Black Male presents to ER via EMS with complaints of hernia. cp 17:00 The patient presents with swelling, of the right inguinal area. Onset: The cp symptoms/episode began/occurred chronic, history of hernia. 17:00 Associated signs and symptoms: Pertinent positives: nausea, vomiting, Pertinent cp negatives: constipation, diarrhea, dysuria, fever. Severity of symptoms: in the emergency department the symptoms are unchanged, despite home interventions. The patient has experienced similar episodes in the past, chronically. Historical: - Allergies: 16:04 No Known Allergies; ab2 - PMHx: 16:04 achalasia; Bipolar disorder; Diabetes - NIDDM; Hernia; Hypertension; Schizophrenia; ab2 - PSHx: 16:04 gastrostomy tube; ab2 - Immunization history:: Adult Immunizations up to date. - Social history:: Smoking status: Patient reports the use of cigarette tobacco products, smokes one pack cigarettes per day. ROS: 17:00 Constitutional: Negative for body aches, chills, fever, poor PO intake. cp 17:00 Cardiovascular: Negative for chest pain, palpitations. 17:00 Respiratory: Negative for cough, shortness of breath, wheezing. 17:00 Abdomen/GI: Positive for nausea, vomiting. 17:00 Back: Negative for pain at rest, pain with movement. 17:00 : Positive for of the right side inguinal hernia, Negative for urinary symptoms. 17:00 Neuro: Negative for altered mental status, headache. 17:00 All other systems are negative. Exam: 17:10 Constitutional: The patient appears in no acute distress, alert, awake, non-toxic, well cp developed, well nourished, uncomfortable. 17:10 Head/Face: Normocephalic, atraumatic. cp 17:10 Chest/axilla: Inspection: normal. 17:10 Cardiovascular: Rate: normal. 17:10 Respiratory: the patient does not display signs of respiratory distress, Respirations: normal, no use of accessory muscles, no retractions, labored breathing, is not present. 17:10 Abdomen/GI: Inspection: abdomen appears normal, Bowel sounds: active, all quadrants, Palpation: abdomen is soft and non-tender, in all quadrants, Hernia: noted in the right inguinal area, incarceration, is not appreciated, tenderness, that is moderate. 17:10 : Male external genitalia: Patient is not circumisioned. Vital Signs: 16:02 BP 129 / 90; Pulse 87; Resp 17; Temp 97.3(TE); Pulse Ox 100% on R/A; Weight 47.63 kg; ab2 Height 5 ft. 5 in. (165.10 cm); Pain 10/10; 17:42 BP 118 / 64; Pulse 84; Resp 17; Pulse Ox 99% ; Pain 2/10; jh6 16:02 Body Mass Index 17.47 (47.63 kg, 165.10 cm) ab2 Procedures: 17:35 Reduction: of the right inguinal hernia, using manipulation, Patient tolerated well. cp MDM: 16:44 Patient medically screened. cp 17:00 Differential diagnosis: incarcerated hernia, bowel obstruction. cp 17:39 Data reviewed: vital signs, nurses notes. cp 17:39 Counseling: I had a detailed discussion with the patient and/or guardian regarding: the cp historical points, exam findings, and any diagnostic results supporting the discharge/admit diagnosis, the need for outpatient follow up, for definitive care, a general surgeon. Response to treatment: the patient's symptoms have resolved after treatment, and as a result, I will discharge patient. 01/22 16:54 Order name: IV; Complete Time: 17:30 cp Administered Medications: 17:17 Drug: Zofran (Ondansetron) 4 mg Route: IVP; Site: left forearm; 6 17:44 Follow up: Response: No adverse reaction [facility] 17:18 Drug: fentaNYL (PF) 25 mcg Route: IVP; Site: right forearm; 6 17:44 Follow up: Response: Pain is decreased [facility] 17:18 Drug: NS 0.9% 500 ml Route: IV; Rate: 500 ml/hr; Site: left forearm; 6 17:45 Follow up: IV Status: Completed infusion [facility] Disposition: 01/23 08:59 Co-signature as Attending Physician, Omari Wang MD. rn Disposition Summary: 01/22/22 17:39 Discharge Ordered Location: Home cp Problem: an ongoing problem cp Symptoms: have improved cp Condition: Stable cp Diagnosis - Unilateral inguinal hernia, without obstruction or gangrene - right cp Followup: cp - With: Julio César Nam MD - When: 2 - 3 days - Reason: hernia repair Discharge Instructions: - Discharge Summary Sheet cp - Inguinal Hernia, Adult cp Forms: - Medication Reconciliation Form cp - Thank You Letter cp - Antibiotic Education cp - Prescription Opioid Use cp Signatures: Omari Wang MD MD rn Keshawn Schilling PA PA cp Kandace Hernandez RN RN jh6 Deondre Culp
--- NOTE | 2022-01-22 17:39 | ER ---
Nurse's Notes [facility] Name: Tahir Ag Jr Age: 36 yrs Sex: Male : 1985 Arrival Date: 01/22/2022 Time: 15:54 Bed 8 Private MD: Diagnosis: Unilateral inguinal hernia, without obstruction or gangrene-right Presentation: 01/22 16:02 Chief complaint: Patient states: "i have a hernia and I think it ruptured. I've been ab2 n/v since this morning." Pt c/o groin pain. Coronavirus screen: Vaccine status: Patient reports receiving the 2nd dose of the covid vaccine. Client denies travel out of the [place] in the last 14 days. At this time, the client does not indicate any symptoms associated with coronavirus-19. Ebola Screen: Patient negative for fever greater than or equal to 101.5 degrees Fahrenheit, and additional compatible Ebola Virus Disease symptoms Patient denies exposure to infectious person. Patient denies travel to an Ebola-affected area in the 21 days before illness onset. No symptoms or risks identified at this time. Initial Sepsis Screen: Does the patient meet any 2 criteria? No. Patient's initial sepsis screen is negative. Does the patient have a suspected source of infection? No. Patient's initial sepsis screen is negative. Risk Assessment: Do you want to hurt yourself or someone else? Patient reports no desire to harm self or others. Onset of symptoms is unknown. 16:02 Method Of Arrival: EMS: [facility] ab2 16:02 Acuity: MARTINA 3 ab2 Triage Assessment: 16:04 General: Appears in no apparent distress. uncomfortable, Behavior is calm, cooperative, ab2 appropriate for age. Pain: Complains of pain in pelvis. Neuro: Level of Consciousness is awake, alert, obeys commands, Oriented to person, place, time, situation, Appropriate for age. Respiratory: Airway is patent Respiratory effort is even, unlabored, Respiratory pattern is regular, symmetrical. GI: Reports nausea, vomiting. Historical: - Allergies: 16:04 No Known Allergies; ab2 - PMHx: 16:04 achalasia; Bipolar disorder; Diabetes - NIDDM; Hernia; Hypertension; Schizophrenia; ab2 - PSHx: 16:04 gastrostomy tube; ab2 - Immunization history:: Adult Immunizations up to date. - Social history:: Smoking status: Patient reports the use of cigarette tobacco products, smokes one pack cigarettes per day. Screenin:22 Abuse screen: Denies threats or abuse. Nutritional screening: Difficulty jh6 chewing/swallowing? Yes. Tuberculosis screening: No symptoms or risk factors identified. Fall Risk None identified. Assessment: 17:00 General: Appears in no apparent distress. slender, unkempt, Behavior is calm, jh6 cooperative, Smells of pt appears un bathed and has body oder. Pain: Complains of pain in groin Pain currently is 9 out of 10 on a pain scale. Quality of pain is described as aching, crampy, shooting, Pain began suddenly, Is continuous, Aggravated by increased activity, repositioning. 17:00 : Swelling noted. jh6 17:43 Reassessment: pt tolerated reduction well. pt given gauze underwear from er and gave 6 instructions of follow up and the need for supportive care Patient states feeling better. Patient states symptoms have improved. Vital Signs: 16:02 BP 129 / 90; Pulse 87; Resp 17; Temp 97.3(TE); Pulse Ox 100% on R/A; Weight 47.63 kg; ab2 Height 5 ft. 5 in. (165.10 cm); Pain 10/10; 17:42 BP 118 / 64; Pulse 84; Resp 17; Pulse Ox 99% ; Pain 2/10; jh6 16:02 Body Mass Index 17.47 (47.63 kg, 165.10 cm) ab2 ED Course: 15:54 Patient arrived in ED. as 16:04 Triage completed. ab2 16:05 Arm band placed on right wrist. ab2 16:42 Keshawn Schilling PA is PHCP. cp 16:42 Omari Wang MD is Attending Physician. cp 16:43 Saqib Pederson RN is Primary Nurse. jl7 17:18 Inserted Maintain EMS IV. Dressing intact. Good blood return noted. Site clean \\T\\ dry. jh6 Gauge \\T\\ site: 18g rt fa. 17:22 Bed in low position. Call light in reach. Side rails up X 1. jh6 17:38 Julio César Nam MD is Referral Physician. cp 17:42 Assist provider with reduction of right hernia. jh6 17:44 IV discontinued, intact, bleeding controlled, No redness/swelling at site. Pressure 6 dressing applied. Administered Medications: 17:17 Drug: Zofran (Ondansetron) 4 mg Route: IVP; Site: left forearm; 6 17:44 Follow up: Response: No adverse reaction jh6 17:18 Drug: fentaNYL (PF) 25 mcg Route: IVP; Site: right forearm; 6 17:44 Follow up: Response: Pain is decreased jh6 17:18 Drug: NS 0.9% 500 ml Route: IV; Rate: 500 ml/hr; Site: left forearm; jh6 17:45 Follow up: IV Status: Completed infusion 6 Outcome: 17:39 Discharge ordered by . jamia 17:44 Discharged to home ambulatory. 6 17:44 Condition: improved 17:44 Discharge instructions given to patient. 17:53 Patient left the ED. 6 Signatures: Renee Bell Corey, PA PA cp Leal, Jahala RN RN jl7 Kandace Hernandez RN RN jh6 Deondre Culp2
[2022-01-22 18:30] VITALS: TEMP 97.3
[2022-01-22 18:35] VITALS: BP 118/64; O2SAT 99
== END 2022-01-22 17:53 | disposition home or self-care (01) ==
LOC: ER 15:51
DX: K40.90 Unilateral inguinal hernia, without obstruction or gangrene, not specified as recurrent (principal); R11.2 Nausea with vomiting, unspecified; E11.9 Type 2 diabetes mellitus without complications; I10 Essential (primary) hypertension; F20.9 Schizophrenia, unspecified
CPT/HCPCS: 99284; J3010; J7040; J2405

== ENCOUNTER 2022-01-23 17:27 | Emergency (ER) | payer OTHER ==
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
[2022-01-23] MEDS ORDERED: FENTANYL CITR 100 MCG/2 ML ONE (17:45)
[2022-01-23] MEDS ORDERED: ONDANSETRON 4 MG (ODT) TAB ONE (17:45)
[2022-01-23] MEDS ORDERED: WATER FOR INJ,STERILE 20 ML ONE (17:46)
--- NOTE | 2022-01-23 18:00 | EDPHYS ---
Physician Documentation [facility] Name: Tahir Ag Jr Age: 36 yrs Sex: Male : 1985 Arrival Date: 01/23/2022 Time: 17:28 Bed 19 Private MD: ED Physician Omari Wang HPI: 01/23 17:32 This 36 yrs old Black Male presents to ER via EMS with complaints of Accidental Peg pm1 tube removal. 17:32 Patient was putting grocery bags away and he accidentally got a grocery bag on his PEG pm1 tube resulting in dislodgement. Onset: The symptoms/episode began/occurred 1 hour(s) ago. Severity of symptoms: in the emergency department the symptoms are unchanged. The patient has experienced similar episodes in the past, a few times. The patient has been recently seen at the [facility] Emergency Department, this week, for unrelated complaints, inguinal hernia. Historical: - Allergies: 17:31 No Known Allergies; jd3 - Home Meds: 17:31 divalproex 250 mg Oral TbEC 1 tab 2 times per day [Active]; hydroxyzine HCl 50 mg Oral jd3 tab PRN anxiety [Active]; trazodone 50 mg Oral tab 1 tab nightly [Active]; - PMHx: 17:31 Bipolar disorder; Diabetes - NIDDM; Hernia; Hypertension; Schizophrenia; achalasia; jd3 - PSHx: 17:31 gastrostomy tube; jd3 - Immunization history:: Adult Immunizations up to date, Client reports receiving the 2nd dose of the Covid vaccine, Flu vaccine is up to date. - Social history:: Smoking status: Patient reports the use of cigarette tobacco products, smokes one pack cigarettes per day. ROS: 17:32 Constitutional: Negative for fever, chills, and weight loss, Cardiovascular: Negative pm1 for chest pain, palpitations, and edema, Respiratory: Negative for shortness of breath, cough, wheezing, and pleuritic chest pain, Abdomen/GI: Negative for abdominal pain, nausea, vomiting, diarrhea, and constipation, Back: Negative for injury and pain, MS/Extremity: Negative for injury and deformity, Skin: Negative for injury, rash, and discoloration. 17:32 All other systems are negative. Exam: 17:32 Constitutional: This is a well developed, well nourished patient who is awake, alert, pm1 and in no acute distress. Head/Face: Normocephalic, atraumatic. 17:32 Skin: Warm, dry with normal turgor. Normal color with no rashes, no lesions, and no evidence of cellulitis. 17:32 MS/ Extremity: Pulses equal, no cyanosis. Neurovascular intact. Full, normal range of motion. 17:32 Cardiovascular: Exam negative for acute changes, Rate: normal, Rhythm: regular, Pulses: no pulse deficits are appreciated, Heart sounds: normal. 17:32 Respiratory: Exam negative for acute changes, respiratory distress, shortness of breath. 17:32 Abdomen/GI: Inspection: stoma to mid abdomen without any signs of cellulitis, abscess, drainage, or bleeding, Palpation: abdomen is soft and non-tender, in all quadrants. 17:32 Neuro: Exam negative for acute changes, Orientation: is normal, Mentation: is normal, Motor: is normal, moves all fours, Gait: is steady, at a normal pace, without difficulty. Vital Signs: 17:30 BP 93 / 66; Pulse 84; Resp 18 S; Temp 99.0(TE); Pulse Ox 99% on R/A; Weight 47.63 kg jd3 (R); Height 5 ft. 5 in. (165.10 cm) (R); Pain 10/10; 19:00 BP 107 / 77 LA Supine (auto/reg); Pulse 61 MON; Resp 18 S; Temp 98.7(O); Pulse Ox 100% tk1 on R/A; Pain 0/10; 17:30 Body Mass Index 17.47 (47.63 kg, 165.10 cm) jd3 Procedures: 17:52 G-tube placement: a 20 Syriac catheter was placed, by the ED physician, Elgin Leal pm1 REFUGE WORKER Patient tolerated well and placement verified with aspiration of gastric content and auscultation. MDM: 17:38 Patient medically screened. pm1 17:52 Data reviewed: vital signs. Data interpreted: Pulse oximetry: on room air is 99 %. pm1 Interpretation: normal. 02 17:52 Order name: PEG Tube Check w/contrast; Complete Time: 19:06 pm1 Administered Medications: 17:45 Drug: fentaNYL (PF) 25 mcg Route: IM; Site: right deltoid; jd3 18:17 Follow up: Response: No adverse reaction; RASS: Alert and Calm (0) jd3 17:45 Drug: Ondansetron 4 mg Route: PO; jd3 18:17 Follow up: Response: No adverse reaction jd3 Disposition: 01/24 10:49 Co-signature as Attending Physician, Omari Wang MD. rn Disposition Summary: 01/23/22 18:00 Discharge Ordered Location: Home pm1 Problem: new pm1 Symptoms: have improved pm1 Condition: Stable pm1 Diagnosis - Encounter for attention to gastrostomy - PEG tube dislodged and replaced pm1 Followup: pm1 - With: Emergency Department - When: As needed - Reason: Worsening of condition Followup: pm1 - With: Private Physician - When: 2 - 3 days - Reason: Recheck today's complaints, Continuance of care, Re-evaluation by your physician Discharge Instructions: - Discharge Summary Sheet pm1 - Gastrostomy Tube Replacement pm1 - PEG Tube Home Guide, [id number] pm1 Forms: - Medication Reconciliation Form pm1 - Thank You Letter pm1 - Antibiotic Education pm1 - Prescription Opioid Use pm1 Signatures: Dispatcher [employer] EDOmari Moore MD MD rn Marinas, Patrick, NP REFUGE WORKER pm1 Kilo Reed, RN RN jd3
--- NOTE | 2022-01-23 18:00 | ER ---
Nurse's Notes [facility] Name: Tahir Ag Jr Age: 36 yrs Sex: Male : 1985 Arrival Date: 01/23/2022 Time: 17:28 Bed 19 Private MD: Diagnosis: Encounter for attention to gastrostomy-PEG tube dislodged and replaced Presentation: 01/23 17:28 Chief complaint: EMS states: "Pt was carrying grocery bags when one slipped and pulled jd3 his PEG tube out. he reports 10/10 pain.". Coronavirus screen: At this time, the client does not indicate any symptoms associated with coronavirus-19. Ebola Screen: No symptoms or risks identified at this time. Initial Sepsis Screen: Does the patient meet any 2 criteria? No. Patient's initial sepsis screen is negative. Does the patient have a suspected source of infection? No. Patient's initial sepsis screen is negative. Risk Assessment: Do you want to hurt yourself or someone else? Patient reports no desire to harm self or others. Onset of symptoms was January 23, 2022. 17:28 Method Of Arrival: EMS: [facility] jd3 17:28 Acuity: MARTINA 4 jd3 Historical: - Allergies: 17:31 No Known Allergies; jd3 - Home Meds: 17:31 divalproex 250 mg Oral TbEC 1 tab 2 times per day [Active]; hydroxyzine HCl 50 mg Oral jd3 tab PRN anxiety [Active]; trazodone 50 mg Oral tab 1 tab nightly [Active]; - PMHx: 17:31 Bipolar disorder; Diabetes - NIDDM; Hernia; Hypertension; Schizophrenia; achalasia; jd3 - PSHx: 17:31 gastrostomy tube; jd3 - Immunization history:: Adult Immunizations up to date, Client reports receiving the 2nd dose of the Covid vaccine, Flu vaccine is up to date. - Social history:: Smoking status: Patient reports the use of cigarette tobacco products, smokes one pack cigarettes per day. Screenin:16 Abuse screen: Denies threats or abuse. Nutritional screening: No deficits noted. jd3 Tuberculosis screening: No symptoms or risk factors identified. Fall Risk Ambulatory Aid- None/Bed Rest/Nurse Assist (0 pts). Gait- Normal/Bed Rest/Wheelchair (0 pts) Mental Status- Oriented to own ability (0 pts). Total Durham Fall Scale indicates No Risk (0-24 pts). Assessment: 17:45 General: Appears in no apparent distress. comfortable, unkempt, Behavior is calm, jd3 cooperative, appropriate for age. Pain: Complains of pain in abdomen Quality of pain is described as sharp. Neuro: Level of Consciousness is awake, alert, obeys commands, Oriented to person, place, time, situation. Cardiovascular: Capillary refill < 3 seconds Patient's skin is warm and dry. Respiratory: Airway is patent Respiratory effort is even, unlabored, Respiratory pattern is regular, symmetrical. GI: displaced PEG tube noted. : No signs and/or symptoms were reported regarding the genitourinary system. EENT: No signs and/or symptoms were reported regarding the EENT system. Derm: Skin is intact, Skin is dry, Skin is normal, Skin temperature is warm. Musculoskeletal: Circulation, motion, and sensation intact. Range of motion: intact in all extremities. 18:17 Reassessment: Patient and/or family updated on plan of care and expected duration. Pain jd3 level reassessed. Patient is alert, oriented x 3, equal unlabored respirations, skin warm/dry/pink. awaiting X-RAY to confirm placement of PEG tube. 19:18 Reassessment: Placement of PEG confirmed per LOOM FIXER HELPER. D/C per LOOM FIXER HELPER order. Discharge tk1 instructions given to patient. Verbalized understanding. Vital Signs: 17:30 BP 93 / 66; Pulse 84; Resp 18 S; Temp 99.0(TE); Pulse Ox 99% on R/A; Weight 47.63 kg jd3 (R); Height 5 ft. 5 in. (165.10 cm) (R); Pain 10/10; 19:00 BP 107 / 77 LA Supine (auto/reg); Pulse 61 MON; Resp 18 S; Temp 98.7(O); Pulse Ox 100% tk1 on R/A; Pain 0/10; 17:30 Body Mass Index 17.47 (47.63 kg, 165.10 cm) jd3 ED Course: 17:28 Patient arrived in ED. jd3 17:28 Elgin Leal NP is PHCP. pm1 17:28 Omari Wang MD is Attending Physician. pm1 17:30 Triage completed. jd3 17:31 Arm band placed on. jd3 17:39 Kilo Reed RN is Primary Nurse. jd3 18:16 Patient has correct armband on for positive identification. Bed in low position. Call jd3 light in reach. Side rails up X 1. Pulse ox on. NIBP on. 18:58 PEG Tube Check w/contrast In Process Unspecified. EDMS 19:00 No provider procedures requiring assistance completed. Patient did not have IV access tk1 during this emergency room visit. 19:20 Primary Nurse role handed off by Kilo Reed, RN cs9 Administered Medications: 17:45 Drug: fentaNYL (PF) 25 mcg Route: IM; Site: right deltoid; jd3 18:17 Follow up: Response: No adverse reaction; RASS: Alert and Calm (0) jd3 17:45 Drug: Ondansetron 4 mg Route: PO; jd3 18:17 Follow up: Response: No adverse reaction jd3 Outcome: 18:00 Discharge ordered by MD. pm1 19:00 Discharged to home ambulatory. tk1 19:00 Condition: stable 19:00 Discharge instructions given to patient, Instructed on discharge instructions, follow up and referral plans. Demonstrated understanding of instructions, follow-up care. 19:22 Patient left the ED. tk1 Signatures: Dispatcher [employer] EDPR Elgin Leal, KASIA LOOM FIXER HELPER pm1 Kilo Reed RN RN Cindy Lopez cs9 Arelis Hudson tk1 Corrections: (The following items were deleted from the chart) 18:22 18:17 Reassessment: Patient and/or family updated on plan of care and expected jd3 duration. Pain level reassessed. Patient is alert, oriented x 3, equal unlabored respirations, skin warm/dry/pink. awaiting X-RAY to confirm placement jd3
--- NOTE | 2022-01-23 19:05 | RAD REPORT ---
EXAM DESCRIPTION: RAD - ENTEROSTOMY TUBE CHECK W/CONTR - 01/23/2022 6:56 pm FINDINGS: Two KUB images were obtained prior to and subsequent to adjustment or repositioning of the PEG tube and retrograde injection of contrast. Initial image shows decompressed stomach. Enterostomy tube is in place in the upper abdomen. No free air or other worrisome finding. Following retrograde injection, all contrast material remains within the lumen of the stomach and duo denum. Bulb is positioned in the fundus of the stomach.
[2022-01-23 19:33] VITALS: BP 107/77; TEMP 98.7; O2SAT 100
== END 2022-01-23 19:22 | disposition home or self-care (01) ==
LOC: ER 17:27
DX: Z43.1 Encounter for attention to gastrostomy (principal); F17.210 Nicotine dependence, cigarettes, uncomplicated
CPT/HCPCS: 49465; 96372; 99284; 43762; J3010

== ENCOUNTER 2022-01-24 13:45 | Emergency (ER) | payer OTHER ==
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
[2022-01-24] MEDS ORDERED: KETOROLAC 30 MG/ML INJ ONE (15:32)
--- NOTE | 2022-01-24 16:03 | ER ---
Nurse's Notes [facility] Name: Tahir Ag Jr Age: 36 yrs Sex: Male : 1985 Arrival Date: 01/24/2022 Time: 13:47 Bed 8 Private MD: Diagnosis: Encounter for attention to gastrostomy-PEG tube clogged and replacement Presentation: 01/24 14:01 Chief complaint: Patient states: Pt reports PEG tube replaced yesterday and it's not jl7 working, reports "It hurts in my feeding tube." Pt noted to have 2 sodas with him in triage. Coronavirus screen: At this time, the client does not indicate any symptoms associated with coronavirus-19. Ebola Screen: No symptoms or risks identified at this time. Initial Sepsis Screen: Does the patient meet any 2 criteria? No. Patient's initial sepsis screen is negative. Does the patient have a suspected source of infection? No. Patient's initial sepsis screen is negative. Risk Assessment: Do you want to hurt yourself or someone else? Patient reports no desire to harm self or others. Onset of symptoms is unknown. 14:01 Method Of Arrival: Ambulatory jl7 14:01 Acuity: MARTINA 4 jl7 Triage Assessment: 14:03 General: Appears in no apparent distress. uncomfortable, Behavior is calm, cooperative, jl7 appropriate for age. Pain: Complains of pain in "In my feeding tube." Pain currently is 8 out of 10 on a pain scale. Historical: - Allergies: 14:03 No Known Allergies; jl7 - Home Meds: 14:03 divalproex 250 mg Oral TbEC 1 tab 2 times per day [Active]; hydroxyzine HCl 50 mg Oral jl7 tab PRN anxiety [Active]; trazodone 50 mg Oral tab 1 tab nightly [Active]; - PMHx: 14:03 achalasia; Bipolar disorder; Diabetes - NIDDM; Hernia; Hypertension; Schizophrenia; jl7 - PSHx: 14:03 gastrostomy tube; jl7 - Immunization history:: Client reports receiving the 2nd dose of the Covid vaccine. - Social history:: Smoking status: Patient reports the use of cigarette tobacco products, smokes one pack cigarettes per day. Screenin:30 Abuse screen: Denies threats or abuse. Denies injuries from another. Nutritional bp screening: No deficits noted. Tuberculosis screening: No symptoms or risk factors identified. Fall Risk None identified. Assessment: 14:15 General: SEE TRIAGE NOTE. bp Vital Signs: 14:01 BP 109 / 77; Pulse 79; Resp 17; Temp 97.2; Pulse Ox 97% ; Weight 47.63 kg; Height 5 ft. jl7 5 in. (165.10 cm); Pain 8/10; 15:35 BP 113 / 82; Pulse 69; Resp 16; Pulse Ox 100% ; bp 14:01 Body Mass Index 17.47 (47.63 kg, 165.10 cm) jl7 ED Course: 13:47 Patient arrived in ED. as 14:00 Elgin Leal NP is PHCP. pm1 14:00 Omari Wang MD is Attending Physician. pm1 14:03 Triage completed. jl7 14:03 Arm band placed on right wrist. jl7 14:13 Richard Hsieh, RN is Primary Nurse. bp 15:30 Patient has correct armband on for positive identification. Bed in low position. Call bp light in reach. Side rails up X2. 16:02 PEG TUBE REPLACED. bp Administered Medications: 15:30 Drug: Ketorolac 30 mg Route: IM; Site: right deltoid; bp Outcome: 16:03 Discharge ordered by . pm1 16:38 Patient left the ED. pm1 Signatures: Renee Bell as Elgin Leal NP MANAGER TRAINEE pm1 Saqib Pederson RN RN jl7 Richard Hsieh, MARTINA RN bp
--- NOTE | 2022-01-24 16:04 | EDPHYS ---
Physician Documentation [facility] Name: Tahir Ag Jr Age: 36 yrs Sex: Male : 1985 Arrival Date: 01/24/2022 Time: 13:47 Bed 8 Private MD: ED Physician Omari Wang HPI: 01/24 15:42 This 36 yrs old Black Male presents to ER via Ambulatory with complaints of Problem pm1 With Feeding Tube. 15:42 Patient reports PEG tube is clogged. A new PEG tube was placed yesterday. Onset: The pm1 symptoms/episode began/occurred today. Severity of symptoms: in the emergency department the symptoms are unchanged. The patient has been recently seen at the [facility] Emergency Department, yesterday, Patient accidentally removed his PEG tube and had the PEG tube replaced yesterday. Historical: - Allergies: 14:03 No Known Allergies; jl7 - Home Meds: 14:03 divalproex 250 mg Oral TbEC 1 tab 2 times per day [Active]; hydroxyzine HCl 50 mg Oral jl7 tab PRN anxiety [Active]; trazodone 50 mg Oral tab 1 tab nightly [Active]; - PMHx: 14:03 achalasia; Bipolar disorder; Diabetes - NIDDM; Hernia; Hypertension; Schizophrenia; jl7 - PSHx: 14:03 gastrostomy tube; jl7 - Immunization history:: Client reports receiving the 2nd dose of the Covid vaccine. - Social history:: Smoking status: Patient reports the use of cigarette tobacco products, smokes one pack cigarettes per day. ROS: 01/23 15:43 Constitutional: Negative for fever, chills, and weight loss, Cardiovascular: Negative pm1 for chest pain, palpitations, and edema, Respiratory: Negative for shortness of breath, cough, wheezing, and pleuritic chest pain. Abdomen/GI: Negative for abdominal pain, nausea, vomiting, diarrhea, and constipation, Back: Negative for injury and pain, MS/Extremity: Negative for injury and deformity, Skin: Negative for injury, rash, and discoloration, Neuro: Negative for headache, weakness, numbness, tingling, and seizure. All other systems are negative. Exam: 15:43 Constitutional: This is a well developed, well nourished patient who is awake, alert, pm1 and in no acute distress. Head/Face: Normocephalic, atraumatic. 15:43 Back: No spinal tenderness. No costovertebral tenderness. Full range of motion. Skin: Warm, dry with normal turgor. Normal color with no rashes, no lesions, and no evidence of cellulitis. MS/ Extremity: Pulses equal, no cyanosis. Neurovascular intact. Full, normal range of motion. 15:43 Eyes: Exam is negative for acute changes, Pupils: no acute changes, Extraocular movements: no acute changes, Conjunctiva: no acute changes. 15:43 ENT: Exam is negative for acute changes, Mouth: no acute changes, Lips: normal, moist, Oral mucosa: normal, pink and intact, moist. 15:43 Cardiovascular: Exam negative for acute changes, Rate: normal, Rhythm: regular, Pulses: no pulse deficits are appreciated. 15:43 Respiratory: Exam negative for acute changes, respiratory distress, shortness of breath. 15:43 Abdomen/GI: Inspection: abdomen appears normal, Palpation: abdomen is soft and non-tender, in all quadrants. 15:43 Neuro: Exam negative for acute changes, Orientation: is normal, Mentation: is normal, Motor: moves all fours. Vital Signs: 04/03 14:01 BP 109 / 77; Pulse 79; Resp 17; Temp 97.2; Pulse Ox 97% ; Weight 47.63 kg; Height 5 ft. jl7 5 in. (165.10 cm); Pain 8/10; 15:35 BP 113 / 82; Pulse 69; Resp 16; Pulse Ox 100% ; bp 14:01 Body Mass Index 17.47 (47.63 kg, 165.10 cm) jl7 Procedures: 15:42 G-tube placement: a 20 Kinyarwanda catheter was placed, by the ED physician, Elgin Leal pm1 DATA WAREHOUSING MANAGER Patient tolerated well. Patient's clogged PEG tube was removed and replaced with a new PEG tube. MDM: 14:00 Patient medically screened. pm1 16:00 Data reviewed: vital signs. Data interpreted: Pulse oximetry: on room air is 100 %. pm1 Interpretation: normal. 16:00 Refusal of service: The patient/guardian displays adequate decision making capability pm1 and despite a detailed discussion of alternatives, benefits, risks, and consequences refuses: all X-rays, Patient wants to leave now in order to get to work. He does not want to wait for the PEG tube verification x-ray. Explained to patient it is important to verify placement beyond auscultation and suction of gastric content. 01/24 14:10 Order name: Lexie. Order: Flush PEG tube; Complete Time: 15:17 pm1 Administered Medications: 15:30 Drug: Ketorolac 30 mg Route: IM; Site: right deltoid; bp Disposition: 17:17 Co-signature as Attending Physician, Omari Wang MD I agree with the assessment and rn plan of care. Attestation: The patient's history, exam findings, diagnostics, and a summary of any interventions or procedures was reviewed in detail with Elgin Leal DATA WAREHOUSING MANAGER. Disposition Summary: 01/24/22 16:03 Discharge Ordered Location: Home pm1 Problem: new pm1 Symptoms: have improved pm1 Condition: Undetermined pm1 Diagnosis - Encounter for attention to gastrostomy - PEG tube clogged and replacement pm1 Followup: pm1 - With: Emergency Department - When: As needed - Reason: Worsening of condition Followup: pm1 - With: Private Physician - When: 2 - 3 days - Reason: Recheck today's complaints, Continuance of care, Re-evaluation by your physician Discharge Instructions: - Discharge Summary Sheet pm1 - Gastrostomy Tube Replacement pm1 - PEG Tube Home Guide, [id number] pm1 Forms: - Medication Reconciliation Form pm1 - Thank You Letter pm1 - Antibiotic Education pm1 - Prescription Opioid Use pm1 Signatures: Dispatcher [employer] EDMS Omari Wang MD MD rn Marinas, Patrick, NP DATA WAREHOUSING MANAGER pm1 Saqib Pederson RN RN jl7 Richrad Hsieh, RN RN bp Corrections: (The following items were deleted from the chart) 16:00 15:42 Enterostomy Tube Check w/contr+[id number] ordered. EDMN EDMS
[2022-01-24 17:19] VITALS: TEMP 97.2
[2022-01-24 17:20] VITALS: BP 113/82; O2SAT 100
== END 2022-01-24 16:38 | disposition home or self-care (01) ==
LOC: ER 13:45
DX: Z43.1 Encounter for attention to gastrostomy (principal); I10 Essential (primary) hypertension; E11.9 Type 2 diabetes mellitus without complications; Z93.1 Gastrostomy status; F20.9 Schizophrenia, unspecified; F17.210 Nicotine dependence, cigarettes, uncomplicated
CPT/HCPCS: 96372; 99282

== ENCOUNTER 2022-01-27 08:49 | Emergency (ER) | payer OTHER ==
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
[2022-01-27 09:49] LABS: Urine Blood Negative (Negative); Urine Glucose Negative (Negative); Urine Protein Trace (Negative); Urine Specific Gravity >=1.030 (1.005-1.030)
[2022-01-27] MEDS ORDERED: KETOROLAC 30 MG/ML INJ ONE (10:41)
--- NOTE | 2022-01-27 10:41 | RAD REPORT ---
EXAM DESCRIPTION: CTAbdomen Pelvis Wo Contrast - 01/27/2022 10:07 am CLINICAL HISTORY: ABD PAIN COMPARISON: Abdomen Pelvis W Contrast dated 01/10/2022; Abdomen Pelvis W Contrast dated ; Abdomen Pelvis W Contrast dated 09/18/2021; Abdomen Pelvis Wo Contrast dated 12/02/2020 TECHNIQUE: CT of the abdomen and pelvis was performed. All CT scans are performed using dose optimization technique as appropriate and may include automated exposure control or mA/KV adjustment according to patient size. FINDINGS: Lower chest: New nodular airspace disease in the left lower lobe. Dilated distal esophagus containing fluid and food. Liver: No acute abnormality or suspicious lesions. Biliary: No biliary ductal dilatation. Stomach: Gastrostomy tube. Duodenum: No significant focal abnormality. Pancreas: No significant abnormality. Spleen: No significant abnormality. Adrenal: No suspicious lesions. Kidney/ureter: No hydronephrosis. No renal calculi. Retroperitoneum: No retroperitoneal adenopathy. Vascular: No aneurysm. Bowel: No significant focal abnormality. Peritoneum: Large right inguinal hernia containing bowel. This has increased in size since 10/12/2021 . It was only partially imaged on the CT from 01/10/2022 Normal appendix identified. There is some fl uid within the hernia sac there is also some fluid in the pelvis. Bladder: Grossly unremarkable. Reproductive: No adnexal masses. Bones: No acute fracture. Other: n/a IMPRESSION: 1. New nodular airspace disease in left lower lobe concerning for aspiration. Food and f luid is present within the patient's dilated distal esophagus. 2. New pelvic free fluid and free fluid within the large bowel containing right inguinal hernia. This is abnormal but nonspecific. The findings are new since 01/10/2022 and could be related to a a radio graphically occult GI process. No bowel obstruction is identified. Could consider repeat CT of the ab domen pelvis with IV and oral contrast to better evaluate.
--- NOTE | 2022-01-27 10:49 | EDPHYS ---
Physician Documentation [facility] Name: Tahir Ag Jr Age: 36 yrs Sex: Male : 1985 Arrival Date: 01/27/2022 Time: 08:50 Bed 2 Private MD: ED Physician Amanuel Ferrer HPI: 01/27 14:14 This 36 yrs old Black Male presents to ER via EMS with complaints of Groin Pain. kdr 14:14 The patient presents with abdominal pain Right lower abdomen and groin pain. Onset: The kdr symptoms/episode began/occurred at an unknown time, Patient is seen here on a routine basis for numerous issues which involve his previously known right groin hernia. Any new pain or new aspect to his current circumstance however he claims that the hernia may have ruptured. He does not indicate that the pain is any worse or there are any other complicating factors.. The symptoms do not radiate. Associated signs and symptoms: none. Modifying factors: The symptoms are alleviated by nothing, the symptoms are aggravated by nothing. Severity of pain: At its worst the pain was mild. 01/28 07:22 The patient has experienced similar episodes in the past, chronically. The patient has kdr not recently seen a physician. Historical: - Allergies: 01/27 08:53 No Known Allergies; bp - Home Meds: 08:53 divalproex 250 mg Oral TbEC 1 tab 2 times per day [Active]; hydroxyzine HCl 50 mg Oral bp tab PRN anxiety [Active]; trazodone 50 mg Oral tab 1 tab nightly [Active]; - PMHx: 08:53 achalasia; Bipolar disorder; Diabetes - NIDDM; Hernia; Hypertension; Schizophrenia; bp - PSHx: 08:53 gastrostomy tube; bp - Immunization history:: Client reports receiving the 2nd dose of the Covid vaccine. - Social history:: Smoking status: Patient denies any tobacco usage or history of. ROS: 01/28 07:22 Constitutional: Negative for fever, chills, and weight loss, Eyes: Negative for injury, kdr pain, redness, and discharge, ENT: Negative for injury, pain, and discharge, Neck: Negative for injury, pain, and swelling, Cardiovascular: Negative for chest pain, palpitations, and edema, Respiratory: Negative for shortness of breath, cough, wheezing, and pleuritic chest pain, Abdomen/GI: Negative for abdominal pain, nausea, vomiting, diarrhea, and constipation, Back: Negative for injury and pain, MS/Extremity: Negative for injury and deformity, Skin: Negative for injury, rash, and discoloration, Neuro: Negative for headache, weakness, numbness, tingling, and seizure activity. Psych: Negative for depression, anxiety, suicide ideation, homicidal ideation, and hallucinations, Allergy/Immunology: Negative for hives, rash, and allergies, Endocrine: Negative for neck swelling, polydipsia, polyuria, polyphagia, and marked weight changes, Hematologic/Lymphatic: Negative for swollen nodes, abnormal bleeding, and unusual bruising. : Positive for Swelling to right groin and scrotum chronically. Exam: 07:22 Constitutional: This is a well developed, well nourished patient who is awake, alert, kdr and in no acute distress. Head/Face: Normocephalic, atraumatic. Eyes: Pupils equal round and reactive to light, extra-ocular motions intact. Lids and lashes normal. Conjunctiva and sclera are non-icteric and not injected. Cornea within normal limits. Periorbital areas with no swelling, redness, or edema. Neck: Trachea midline, no thyromegaly or masses palpated, and no cervical lymphadenopathy. Supple, full range of motion without nuchal rigidity, or vertebral point tenderness. No Meningismus. Chest/axilla: Normal chest wall appearance and motion. Nontender with no deformity. No lesions are appreciated. Cardiovascular: Regular rate and rhythm with a normal S1 and S2. No gallops, murmurs, or rubs. Normal PMI, no JVD. No pulse deficits. Respiratory: Lungs have equal breath sounds bilaterally, clear to auscultation and percussion. No rales, rhonchi or wheezes noted. No increased work of breathing, no retractions or nasal flaring. Abdomen/GI: Soft, non-tender, with normal bowel sounds. No distension or tympany. No guarding or rebound. No evidence of tenderness throughout. Back: No spinal tenderness. No costovertebral tenderness. Full range of motion. Skin: Warm, dry with normal turgor. Normal color with no rashes, no lesions, and no evidence of cellulitis. MS/ Extremity: Pulses equal, no cyanosis. Neurovascular intact. Full, normal range of motion. Neuro: Awake and alert, GCS 15, oriented to person, place, time, and situation. Cranial nerves II-XII grossly intact. Motor strength 5/5 in all extremities. Sensory grossly intact. Cerebellar exam normal. Normal gait. Psych: Awake, alert, with orientation to person, place and time. Behavior, mood, and affect are within normal limits. 07:22 : Male external genitalia: swelling: scrotal. Vital Signs: 01/27 08:51 BP 154 / 59; Pulse 97; Resp 16; Temp 98; Pulse Ox 97% ; bp 10:00 BP 141 / 65; Pulse 87; Resp 16; Pulse Ox 97% ; bp MDM: 10:48 Patient medically screened. kdr 01/28 07:22 Data reviewed: vital signs, nurses notes, lab test result(s), radiologic studies. kdr Counseling: I had a detailed discussion with the patient and/or guardian regarding: the historical points, exam findings, and any diagnostic results supporting the discharge/admit diagnosis, lab results, radiology results, the need for outpatient follow up. 01/27 09:49 Order name: Urine Dipstick-Ancillary; Complete Time: 10:40 EDOK 01/27 09:36 Order name: CT Abd/Pelvis - Without Contrast; Complete Time: 10:46 kdr Administered Medications: 01/27 10:40 Not Given (Patient Eloped): Ketorolac 15 mg IVP once bp Disposition Summary: 01/27/22 10:48 Discharge Ordered Location: Home kdr Problem: an ongoing problem kdr Symptoms: are unchanged kdr Condition: Stable kdr Diagnosis - Right groin pain kdr - Right groin pain - chronic kdr Followup: kdr - With: Private Physician - When: 2 - 3 days - Reason: If symptoms return, Further diagnostic work-up, Recheck today's complaints, Continuance of care, Re-evaluation by your physician Discharge Instructions: - Discharge Summary Sheet kdr - Abdominal Pain, Adult, [id number] kdr - Hernia, Adult, [id number] kdr Forms: - Medication Reconciliation Form kdr - Thank You Letter kdr Signatures: Dispatcher [employer] Amanuel Douglas MD MD kdr Richard Hsieh RN RN bp
--- NOTE | 2022-01-27 10:49 | ER ---
Nurse's Notes [facility] Name: Tahir Ag Jr Age: 36 yrs Sex: Male : 1985 Arrival Date: 01/27/2022 Time: 08:50 Bed 2 Private MD: Diagnosis: Right groin pain;Right groin pain - chronic Presentation: 01/27 08:51 Chief complaint: EMS states: "IT'S MY HERNIA". Coronavirus screen: At this time, the bp client does not indicate any symptoms associated with coronavirus-19. Ebola Screen: No symptoms or risks identified at this time. Initial Sepsis Screen: Does the patient meet any 2 criteria? No. Patient's initial sepsis screen is negative. Does the patient have a suspected source of infection? No. Patient's initial sepsis screen is negative. Risk Assessment: Do you want to hurt yourself or someone else? Patient reports no desire to harm self or others. Onset of symptoms is unknown. 08:51 Method Of Arrival: EMS: [facility] bp 08:51 Acuity: MARTINA 4 bp Triage Assessment: 08:51 General: Appears in no apparent distress. Behavior is calm, cooperative, appropriate bp for age. Pain: Complains of pain in pelvis. EENT: No deficits noted. Neuro: No deficits noted. Cardiovascular: No deficits noted. Respiratory: No deficits noted. GI: PEG tube in place. : No signs and/or symptoms were reported regarding the genitourinary system. Derm: No deficits noted. Musculoskeletal: No deficits noted. Historical: - Allergies: 08:53 No Known Allergies; bp - Home Meds: 08:53 divalproex 250 mg Oral TbEC 1 tab 2 times per day [Active]; hydroxyzine HCl 50 mg Oral bp tab PRN anxiety [Active]; trazodone 50 mg Oral tab 1 tab nightly [Active]; - PMHx: 08:53 achalasia; Bipolar disorder; Diabetes - NIDDM; Hernia; Hypertension; Schizophrenia; bp - PSHx: 08:53 gastrostomy tube; bp - Immunization history:: Client reports receiving the 2nd dose of the Covid vaccine. - Social history:: Smoking status: Patient denies any tobacco usage or history of. Screenin:00 Abuse screen: Denies threats or abuse. Denies injuries from another. Nutritional bp screening: No deficits noted. Tuberculosis screening: No symptoms or risk factors identified. Fall Risk None identified. Assessment: 08:55 General: SEE TRIAGE NOTE. bp 10:00 Reassessment: PT RETURNED FROM CT. bp 10:40 Reassessment: PT ELOPED FROM ER WITHOUT NOTIFYING STAFF. LAST SEEN IN STABLE CONDITION. bp Vital Signs: 08:51 BP 154 / 59; Pulse 97; Resp 16; Temp 98; Pulse Ox 97% ; bp 10:00 BP 141 / 65; Pulse 87; Resp 16; Pulse Ox 97% ; bp ED Course: 08:50 Patient arrived in ED. bp 08:51 Amanuel eFrrer MD is Attending Physician. kdr 08:51 Arm band placed on. bp 08:53 Triage completed. bp 09:00 Patient has correct armband on for positive identification. Bed in low position. Call bp light in reach. Side rails up X2. 09:48 Urine collected: clean catch specimen, clear. zm 10:08 CT Abd/Pelvis - Without Contrast In Process Unspecified. EDMS 10:17 Richard Hsieh, RN is Primary Nurse. bp 10:43 No provider procedures requiring assistance completed. Patient did not have IV access bp during this emergency room visit. Administered Medications: 10:40 Not Given (Patient Eloped): Ketorolac 15 mg IVP once bp Outcome: 10:43 Eloped from patient exam room, after seeing physician Time discovered patient gone: bp January 27, 2022 at 10:40 10:43 Condition: stable 10:48 Discharge ordered by . kdr 10:52 Patient left the ED. bp Signatures: Dispatcher [employer] EDMS Amanuel Ferrer MD MD kdr Richard Hsieh, RN RN Tram Morin
[2022-01-27 20:25] VITALS: TEMP 98; O2SAT 97
[2022-01-27 20:26] VITALS: BP 141/65
== END 2022-01-27 10:52 | disposition home or self-care (01) ==
LOC: ER 08:49
DX: R10.31 Right lower quadrant pain (principal); F20.9 Schizophrenia, unspecified; E11.9 Type 2 diabetes mellitus without complications; I10 Essential (primary) hypertension
CPT/HCPCS: 74176; 81003; 99283

== ENCOUNTER 2022-02-11 08:55 | Emergency (ER) | payer OTHER ==
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
[2022-02-11] MEDS ORDERED: MORPHINE 2 MG/ML SYR ONE (09:07)
--- NOTE | 2022-02-11 09:31 | EDPHYS ---
Physician Documentation [facility] Name: Tahir Ag Jr Age: 36 yrs Sex: Male : 1985 Arrival Date: 02/11/2022 Time: 08:55 Bed 4 Private MD: ED Physician Aryan Mccracken HPI: 02/11 09:24 This 36 yrs old Black Male presents to ER via EMS with complaints of Abdominal Pain. la1 09:24 The patient presents with Inguinal hernia. Onset: The symptoms/episode began/occurred la1 last night. The symptoms do not radiate. Associated signs and symptoms: Pertinent negatives: nausea and vomiting, blood in stools, constipation, diarrhea, dysuria. The symptoms are described as sharp. Modifying factors: The symptoms are alleviated by nothing, the symptoms are aggravated by nothing. Severity of pain: At its worst the pain was moderate in the emergency department the pain has resolved. The patient has experienced similar episodes in the past. Patient with longstanding large inguinal hernia on the right, as seen surgery/GI multiple times in the past is reportedly scheduled for surgery next month on the fifth, patient reports this hernia came out last night while he was sleeping.. Historical: - Allergies: 09:00 No Known Allergies; ap3 - PMHx: 08:58 achalasia; Bipolar disorder; Diabetes - NIDDM; Hernia; Hypertension; Schizophrenia; ap3 - PSHx: 08:58 gastrostomy tube; ap3 - Immunization history:: Client reports receiving the 2nd dose of the Covid vaccine. - Social history:: Smoking status: Patient reports the use of cigarette tobacco products, denies chronic smoking, but will smoke occasionally. ROS: 09:26 Constitutional: Negative for fever, chills, and weight loss, Eyes: Negative for injury, la1 pain, redness, and discharge, ENT: Negative for injury, pain, and discharge, Neck: Negative for injury, pain, and swelling, Cardiovascular: Negative for chest pain, palpitations, and edema, Respiratory: Negative for shortness of breath, cough, wheezing, and pleuritic chest pain, Back: Negative for injury and pain, MS/Extremity: Negative for injury and deformity, Neuro: Negative for headache, weakness, numbness, tingling, and seizure. 09:26 Abdomen/GI: Positive for large right inguinal hernia. 09:26 : Positive for large right inguinal hernia. Exam: 09:27 Constitutional: This is a well developed, well nourished patient who is awake, alert, la1 and in no acute distress. Head/Face: Normocephalic, atraumatic. Eyes: Pupils equal round and reactive to light ENT: Nares patent. No nasal discharge, no septal abnormalities noted. Neck: Trachea midline Chest/axilla: Normal chest wall appearance and motion. Nontender with no deformity. No lesions are appreciated. Cardiovascular: Regular rate and rhythm with a normal S1 and S2. Respiratory: Lungs have equal breath sounds bilaterally, clear to auscultation and percussion. 09:27 Back: No spinal tenderness. No costovertebral tenderness. Full range of motion. MS/ Extremity: Pulses equal, no cyanosis. Neurovascular intact. Full, normal range of motion. 09:27 Abdomen/GI: Hernia: noted in the right femoral area, incarceration, is not appreciated, tenderness, is not appreciated, bowel sounds are appreciated on auscultation. Vital Signs: 08:56 BP 116 / 83; Pulse 63; Resp 17; Temp 97.8; Pulse Ox 100% ; Weight 47.63 kg; Height 5 ap3 ft. 9 in. (175.26 cm); 08:56 Body Mass Index 15.51 (47.63 kg, 175.26 cm) ap3 Procedures: 09:28 Performed Closed reduction large right inguinal hernia, tolerated well, fully reduced. la1 MDM: 08:57 Patient medically screened. la1 09:28 Data reviewed: vital signs, nurses notes, old medical records, and as a result, I will la1 discharge patient. Data interpreted: Pulse oximetry: on room air is 100 %. Interpretation: normal. Counseling: I had a detailed discussion with the patient and/or guardian regarding: the historical points, exam findings, and any diagnostic results supporting the discharge/admit diagnosis, the need for outpatient follow up, a general surgeon, a manager post, to return to the emergency department if symptoms worsen or persist or if there are any questions or concerns that arise at home. Response to treatment: the patient's symptoms have resolved after treatment, the patient's condition has returned to base line, and as a result, I will discharge patient. ED course: Patient with longstanding right inguinal hernia that is typically easily reduced in the emergency department. Patient has scheduled surgery for the fifth of next month, large right inguinal hernia was reduced by me here in the emergency department patient tolerated procedure well no signs of incarceration or strangulation at this time, patient reports his pain is significant proved and he is back at his baseline will discharge to follow-up with GI/surgery outpatient.. Administered Medications: 09:09 Drug: morphine 2 mg Route: IM; Site: right deltoid; ap3 09:59 Follow up: Response: No adverse reaction ap3 Disposition: 18:41 Co-signature as Attending Physician, Aryan Mccracken MD. ma2 Disposition Summary: 02/11/22 09:31 Discharge Ordered Location: Home la1 Problem: an ongoing problem la1 Symptoms: have improved la1 Condition: Stable la1 Diagnosis - Unilateral inguinal hernia, without obstruction or gangrene la1 Followup: la1 - With: Private Physician - When: 2 - 3 days - Reason: Recheck today's complaints, Re-evaluation by your physician Followup: la1 - With: Emergency Department - When: As needed - Reason: Worsening of condition Discharge Instructions: - Discharge Summary Sheet la1 - Inguinal Hernia, Adult la1 Forms: - Medication Reconciliation Form la1 - Thank You Letter la1 Signatures: Malcolm Villa, MAP MAKER-C MAP MAKER-Cla1 Aryan Mccracken MD MD ma2 Louise Michaud RN RN ap3
--- NOTE | 2022-02-11 09:31 | ER ---
Nurse's Notes [facility] Name: Tahir Ag Jr Age: 36 yrs Sex: Male : 1985 Arrival Date: 02/11/2022 Time: 08:55 Bed 4 Private MD: Diagnosis: Unilateral inguinal hernia, without obstruction or gangrene Presentation: 02/11 08:56 Chief complaint: Patient states: he has 10/10 abdominal pain r/t chronic hernia. ap3 Patient reports he has sx scheduled with Dr. Salazar on February 25. Coronavirus screen: At this time, the client does not indicate any symptoms associated with coronavirus-19. Ebola Screen: No symptoms or risks identified at this time. Initial Sepsis Screen: Does the patient meet any 2 criteria? No. Patient's initial sepsis screen is negative. Does the patient have a suspected source of infection? No. Patient's initial sepsis screen is negative. Risk Assessment: Do you want to hurt yourself or someone else? Patient reports no desire to harm self or others. Onset of symptoms was February 11, 2022. 08:56 Method Of Arrival: EMS: [facility] ap3 08:56 Acuity: MARTINA 4 ap3 Triage Assessment: 08:59 General: Appears in no apparent distress. Behavior is calm, cooperative, appropriate ap3 for age. Pain: Complains of pain in abdomen Pain currently is 10 out of 10 on a pain scale. Neuro: Level of Consciousness is awake, alert, obeys commands, Oriented to person, place, time, situation, Appropriate for age. Cardiovascular: Patient's skin is warm and dry. Respiratory: Airway is patent Respiratory effort is even, unlabored. GI: Abdomen is hernia noted Reports lower abdominal pain, upper abdominal pain. Historical: - Allergies: 09:00 No Known Allergies; ap3 - PMHx: 08:58 achalasia; Bipolar disorder; Diabetes - NIDDM; Hernia; Hypertension; Schizophrenia; ap3 - PSHx: 08:58 gastrostomy tube; ap3 - Immunization history:: Client reports receiving the 2nd dose of the Covid vaccine. - Social history:: Smoking status: Patient reports the use of cigarette tobacco products, denies chronic smoking, but will smoke occasionally. Screenin:00 Abuse screen: Denies threats or abuse. Nutritional screening: No deficits noted. ap3 Tuberculosis screening: No symptoms or risk factors identified. 09:00 Fall Risk No fall in past 12 months (0 pts). ap3 Vital Signs: 08:56 BP 116 / 83; Pulse 63; Resp 17; Temp 97.8; Pulse Ox 100% ; Weight 47.63 kg; Height 5 ap3 ft. 9 in. (175.26 cm); 08:56 Body Mass Index 15.51 (47.63 kg, 175.26 cm) ap3 ED Course: 08:55 Patient arrived in ED. la1 08:55 Louise Michaud, RN is Primary Nurse. ap3 08:57 Malcolm Villa FNP-C is PHCP. la1 08:57 Aryan Mccracken MD is Attending Physician. la1 08:58 Triage completed. ap3 09:00 Arm band placed on right wrist. ap3 09:00 Patient has correct armband on for positive identification. Placed in gown. Bed in low ap3 position. Call light in reach. Side rails up X2. Pulse ox on. NIBP on. Door closed. Noise minimized. Warm blanket given. 09:54 No provider procedures requiring assistance completed. Patient did not have IV access ap3 during this emergency room visit. Administered Medications: 09:09 Drug: morphine 2 mg Route: IM; Site: right deltoid; ap3 09:59 Follow up: Response: No adverse reaction ap3 Outcome: 09:31 Discharge ordered by . la1 09:55 Discharged to home ambulatory. ap3 09:55 Condition: good 09:55 Discharge instructions given to patient, Instructed on discharge instructions, follow up and referral plans. Demonstrated understanding of instructions, follow-up care. 09:59 Patient left the ED. ap3 Signatures: Malcolm Villa FNP-C VP RESPIRATORY-Cla1 Louise Michaud, RN RN ap3
[2022-02-11 10:09] VITALS: BP 116/83; TEMP 97.8; O2SAT 100
== END 2022-02-11 09:59 | disposition home or self-care (01) ==
LOC: ER 08:55
DX: K40.90 Unilateral inguinal hernia, without obstruction or gangrene, not specified as recurrent (principal); I10 Essential (primary) hypertension; F20.9 Schizophrenia, unspecified; F31.9 Bipolar disorder, unspecified; F17.210 Nicotine dependence, cigarettes, uncomplicated
CPT/HCPCS: 96372; 99283; J2270

== ENCOUNTER 2022-02-16 10:39 | Emergency (ER) | payer OTHER ==
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
[2022-02-16] MEDS ORDERED: HYDROCODONE/APAP 5/325 MG TAB ONE (10:56)
--- NOTE | 2022-02-16 11:22 | EDPHYS ---
Physician Documentation [facility] Name: Tahir Ag Jr Age: 36 yrs Sex: Male : 1985 Arrival Date: 02/16/2022 Time: 10:41 Bed 17 Private MD: ED Physician Omari Wang HPI: 02/16 11:13 This 36 yrs old Black Male presents to ER via EMS with complaints of right inguinal rn hernia. 11:13 Pt reports here for hernia again, reports continues to go in and out, is having bowel rn movements and passing gas, no vomiting, no abd pain. No new symptoms. . States has appt coming up to address hernia.. Onset: The symptoms/episode began/occurred at an unknown time. Severity of symptoms: At their worst the symptoms were mild. The patient has experienced similar episodes in the past. The patient has been recently seen at the [facility] Emergency Department. Historical: - Allergies: 10:46 No Known Allergies; ww - PMHx: 10:46 achalasia; Bipolar disorder; Diabetes - NIDDM; Hernia; Hypertension; Schizophrenia; ww - PSHx: 10:46 gastrostomy tube; ww - Immunization history:: Adult Immunizations. - Social history:: Smoking status: . - Family history:: not pertinent. - Hospitalizations: : No recent hospitalization is reported. ROS: 11:13 Constitutional: Negative for fever, chills, and weight loss, Cardiovascular: Negative rn for chest pain, palpitations, and edema, Respiratory: Negative for shortness of breath, cough, wheezing, and pleuritic chest pain, Abdomen/GI: Negative for abdominal pain, nausea, vomiting, diarrhea, and constipation, Back: Negative for injury and pain, : + testicular swelling from inguinal hernia MS/Extremity: Negative for injury and deformity, Skin: Negative for injury, rash, and discoloration, Neuro: Negative for headache, weakness, numbness, tingling, and seizure. Exam: 11:19 Constitutional: Thin male who is awake, alert, and in no acute distress. Abdomen/GI: rn soft, non-tender, non-distended, + right inguinal hernia that is soft and extends into right hemiscrotum, no skin changes, is reducible Skin: Warm, dry Vital Signs: 10:41 BP 96 / 71; Pulse 60; Resp 18; Temp 97.1; Pulse Ox 100% on R/A; Weight 58.97 kg; Height ww 5 ft. 4 in. (162.56 cm); 10:41 Body Mass Index 22.31 (58.97 kg, 162.56 cm) ww MDM: 10:42 Patient medically screened. 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 Counseling: I had a detailed discussion with the patient and/or guardian regarding: the historical points, exam findings, and any diagnostic results supporting the discharge/admit diagnosis, the need for outpatient follow up, to return to the emergency department if symptoms worsen or persist or if there are any questions or concerns that arise at home. Response to treatment: the patient's symptoms have mildly improved after treatment, and as a result, I will discharge patient. Special discussion: I discussed with the patient/guardian in detail that at this point there is no indication for admission to the hospital. It is understood, however, that if the symptoms persist or worsen the patient needs to return immediately for re-evaluation. Based on the history and exam findings, there is no indication for further emergent testing or inpatient evaluation. I discussed with the patient/guardian the need to see the general surgeon for further evaluation of the symptoms. Administered Medications: 10:54 Drug: HYDROcodone-acetaminophen 5 mg-325 mg 1 tabs Route: PO; ww Disposition Summary: 02/16/22 11:22 Discharge Ordered Location: Home rn Problem: chronic rn Symptoms: have improved rn Condition: Stable rn Diagnosis - Unilateral inguinal hernia, without obstruction or gangrene, recurrent rn Followup: rn - With: Private Physician - When: As needed - Reason: Recheck today's complaints, Re-evaluation by your physician Discharge Instructions: - Discharge Summary Sheet rn - Inguinal Hernia, Adult, [id number] rn Forms: - Medication Reconciliation Form rn - Thank You Letter rn - Antibiotic interventional radiology rn - Prescription Opioid Use rn Signatures: Omari Wang MD MD rn Wood, Whitney, RN RN ww Corrections: (The following items were deleted from the chart) 11:19 11:13 Constitutional: Negative for fever, chills, and weight loss, Abdomen/GI: Negative rn for abdominal pain, nausea, vomiting, diarrhea, and constipation, Back: Negative for injury and pain, : + testicular swelling from inguinal hernia rn
--- NOTE | 2022-02-16 11:22 | ER ---
Nurse's Notes [facility] Name: Tahir Ag Jr Age: 36 yrs Sex: Male : 1985 Arrival Date: 02/16/2022 Time: 10:41 Bed 17 Private MD: Diagnosis: Unilateral inguinal hernia, without obstruction or gangrene, recurrent Presentation: 02/16 10:41 Chief complaint: Patient states: Hernia pain. Has an appointment on the 02/25 for a surgeon. Coronavirus screen: Client denies travel out of the [place] in the last 14 days. Ebola Screen: Patient denies travel to an Ebola-affected area in the 21 days before illness onset. Initial Sepsis Screen: Does the patient meet any 2 criteria? No. Patient's initial sepsis screen is negative. Does the patient have a suspected source of infection? No. Patient's initial sepsis screen is negative. Risk Assessment: Do you want to hurt yourself or someone else? Patient reports no desire to harm self or others. Onset of symptoms is unknown. 10:41 Method Of Arrival: EMS: [facility] 10:41 Acuity: MARTINA 4 Triage Assessment: 10:46 General: Appears in no apparent distress. Behavior is calm, cooperative, Smells of ww urine. Pain: Complains of pain in groin. Neuro: Level of Consciousness is awake, alert, obeys commands, Oriented to person, place, time, situation, Gait is steady, Speech is normal. Cardiovascular: Patient's skin is warm and dry. Respiratory: Airway is patent Respiratory effort is even, unlabored, Respiratory pattern is regular, symmetrical. GI: Reports lower abdominal pain. : No signs and/or symptoms were reported regarding the genitourinary system. Derm: Skin is intact. Musculoskeletal: No signs and/or symptoms reported regarding the musculoskeletal system. Historical: - Allergies: 10:46 No Known Allergies; ww - PMHx: 10:46 achalasia; Bipolar disorder; Diabetes - NIDDM; Hernia; Hypertension; Schizophrenia; ww - PSHx: 10:46 gastrostomy tube; ww - Immunization history:: Adult Immunizations. - Social history:: Smoking status: . - Family history:: not pertinent. - Hospitalizations: : No recent hospitalization is reported. Screenin:47 Abuse screen: Denies threats or abuse. Denies injuries from another. Nutritional ww screening: No deficits noted. Tuberculosis screening: No symptoms or risk factors identified. Fall Risk None identified. Assessment: 10:47 Reassessment: No changes from previously documented assessment. Patient and/or family ww updated on plan of care and expected duration. Pain level reassessed. Patient is alert, oriented x 3, equal unlabored respirations, skin warm/dry/pink. see triage assessment. Dr. Daugherty at bedside. Vital Signs: 10:41 BP 96 / 71; Pulse 60; Resp 18; Temp 97.1; Pulse Ox 100% on R/A; Weight 58.97 kg; Height ww 5 ft. 4 in. (162.56 cm); 10:41 Body Mass Index 22.31 (58.97 kg, 162.56 cm) ww ED Course: 10:41 Patient arrived in ED. ww 10:42 Omari Wang MD is Attending Physician. rn 10:46 Triage completed. ww 10:46 Arm band placed on. ww 10:47 Patient has correct armband on for positive identification. Bed in low position. Call ww light in reach. Side rails up X 1. Pulse ox on. NIBP on. 10:50 Alyce Michael, RN is Primary Nurse. ww 11:33 No provider procedures requiring assistance completed. Patient did not have IV access ww during this emergency room visit. Administered Medications: 10:54 Drug: HYDROcodone-acetaminophen 5 mg-325 mg 1 tabs Route: PO; ww Outcome: 11:22 Discharge ordered by . rn 11:30 Patient left the ED. ww 11:33 Discharged to home ww 11:33 Condition: stable 11:33 Discharge instructions given to patient, Instructed on follow up and referral plans. Signatures: Omari Wang MD MD rn Wood, Whitney, RN RN ww
[2022-02-16 11:41] VITALS: BP 96/71; TEMP 97.1; O2SAT 100
== END 2022-02-16 11:30 | disposition home or self-care (01) ==
LOC: ER 10:39
DX: K40.91 Unilateral inguinal hernia, without obstruction or gangrene, recurrent (principal); E11.9 Type 2 diabetes mellitus without complications; I10 Essential (primary) hypertension; F20.9 Schizophrenia, unspecified
CPT/HCPCS: 99283

== ENCOUNTER 2022-02-19 15:00 | Emergency (ER) | payer OTHER ==
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
--- NOTE | 2022-02-19 15:45 | ER ---
Nurse's Notes [facility] Name: Tahir Ag Jr Age: 36 yrs Sex: Male : 1985 Arrival Date: 02/19/2022 Time: 15:01 Bed 6 Private MD: Diagnosis: Presentation: 02/19 15:05 Chief complaint: EMS states: chronic right inguinal hernia pain. no trauma per pt. [facility] Coronavirus screen: Client denies travel out of the [place] in the last 14 days. Client indicates they have traveled out of the [place] in the last 14 days. Ebola Screen: Patient negative for fever greater than or equal to 101.5 degrees Fahrenheit, and additional compatible Ebola Virus Disease symptoms Patient denies exposure to infectious person. Patient denies travel to an Ebola-affected area in the 21 days before illness onset. Initial Sepsis Screen: Does the patient meet any 2 criteria? No. Patient's initial sepsis screen is negative. Does the patient have a suspected source of infection?. Risk Assessment: Do you want to hurt yourself or someone else? Patient reports no desire to harm self or others. Onset of symptoms was February 19, 2022. 15:05 Method Of Arrival: EMS: [place] [id number] 15:05 Acuity: MARTINA 3 6 Triage Assessment: 15:08 General: Appears in no apparent distress. comfortable, slender, unkempt, Behavior is 6 calm, cooperative. Pain: Denies pain. Complains of pain in right lower quadrant Pain currently is 8 out of 10 on a pain scale. Quality of pain is described as sharp, shooting, Pain began suddenly, Is continuous, Alleviated by repositioning, Aggravated by increased activity, repositioning. Historical: - PMHx: 15:08 achalasia; Bipolar disorder; Diabetes - NIDDM; Hernia; Hypertension; Schizophrenia; jh - PSHx: 15:08 gastrostomy tube; [facility] - Immunization history:: Adult Immunizations not up to date. - Social history:: Smoking status: Patient denies any tobacco usage or history of. Screenin:10 Abuse screen: Denies threats or abuse. Nutritional screening: No deficits noted. [facility] Tuberculosis screening: No symptoms or risk factors identified. Fall Risk None identified. Assessment: 15:09 General: Appears in no apparent distress. Behavior is calm, cooperative. GI: Abdomen is [facility] flat, Bowel sounds present X 4 quads. Abd is soft Abdomen is tender to palpation in right lower quadrant Reports lower abdominal pain. 15:43 Reassessment: pt seen walking out to er lobby by other staff members. pt did not notify [facility] er staff that he was leaving. Vital Signs: 15:05 BP 101 / 77; Pulse 63; Resp 17; Temp 97.6(TE); Pulse Ox 100% ; Weight 49.9 kg; Height 5 [facility] ft. (152.40 cm); 15:05 Body Mass Index 21.48 (49.90 kg, 152.40 cm) [facility] ED Course: 15:01 Patient arrived in ED. 15:05 Kandace Hernandez, RN is Primary Nurse. [facility] 15:08 Triage completed. [facility] 15:09 Arm band placed on left wrist. [facility] 15:10 Bed in low position. Call light in reach. Side rails up X 1. [facility] 15:30 [facility] Alvares [facility] kenny 15:30 Amanuel Ferrer MD is Attending Physician. terell Administered Medications: No medications were administered Outcome: 15:45 Patient left the ED. [facility] Signatures: Teo Alvares PA PA jmm Botello, Elizabeth Kandace Hernandez, RN RN [facility]
[2022-02-19 16:30] VITALS: BP 101/77; TEMP 97.6; O2SAT 100
--- NOTE | 2022-02-20 15:45 | EDPHYS ---
Physician Documentation [facility] Name: Tahir Ag Jr Age: 36 yrs Sex: Male : 1985 Arrival Date: 02/19/2022 Time: 15:01 Bed 6 Private MD: ED Physician Amanuel Ferrer HPI: 02/19 17:29 This 36 yrs old Black Male presents to ER via EMS with complaints of groin pain. m 17:29 Onset: The symptoms/episode began/occurred at an unknown time. [facility] Historical: - PMHx: 15:08 achalasia; Bipolar disorder; Diabetes - NIDDM; Hernia; Hypertension; Schizophrenia; [facility] - PSHx: 15:08 gastrostomy tube; [facility] - Immunization history:: Adult Immunizations not up to date. - Social history:: Smoking status: Patient denies any tobacco usage or history of. ROS: 17:29 Constitutional: Negative for fever, chills, and weight loss. jmm 17:29 : Positive for pelvic pain. Exam: 17:29 Constitutional: This is a well developed, well nourished patient who is awake, alert, jmm and in no acute distress. Head/Face: atraumatic. Eyes: EOMI, no conjunctival erythema appreciated ENT: Moist Mucus Membranes Neck: Trachea midline, Supple Chest/axilla: Normal chest wall appearance and motion. Cardiovascular: Regular rate and rhythm. No edema appreciated Respiratory: Normal respirations, no respiratory distress appreciated Abdomen/GI: Non distended, soft Back: Normal ROM Skin: General appearance color normal MS/ Extremity: Moves all extremities, no obvious deformities appreciated, no edema noted to the lower extremities Neuro: Awake and alert Psych: Behavior is normal, Mood is normal, Patient is cooperative and pleasant Vital Signs: 15:05 BP 101 / 77; Pulse 63; Resp 17; Temp 97.6(TE); Pulse Ox 100% ; Weight 49.9 kg; Height 5 jh6 ft. (152.40 cm); 15:05 Body Mass Index 21.48 (49.90 kg, 152.40 cm) 6 MDM: 15:39 Patient medically screened. jmm Administered Medications: No medications were administered Disposition: 02/20 15:38 Co-signature as Attending Physician, Amanuel Ferrer MD I agree with the assessment and kdr plan of care. Disposition Summary: 02/19/22 15:45 Left Against Medical Advice Location: Home [facility] Condition: Undetermined [facility] Signatures: Amanuel Ferrer MD MD kdr Mickail, Joel, PA PA jmm Hastedt, Jennifer RN RN 6
== END 2022-02-19 15:45 | disposition left against medical advice (07) ==
LOC: ER 15:00
DX: R10.2 Pelvic and perineal pain (principal); I10 Essential (primary) hypertension; F20.9 Schizophrenia, unspecified
CPT/HCPCS: 99282

== ENCOUNTER 2022-02-21 10:41 | Emergency (ER) | payer OTHER ==
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
--- NOTE | 2022-02-21 11:39 | ER ---
Nurse's Notes [facility] Name: Tahir Ag Jr Age: 36 yrs Sex: Male : 1985 Arrival Date: 02/21/2022 Time: 10:43 Bed Waiting Private MD: Diagnosis: Presentation: 02/21 10:53 Chief complaint: Patient states: chronic hernia pain. aa5 10:53 Coronavirus screen: At this time, the client does not indicate any symptoms associated aa5 with coronavirus-19. Ebola Screen: No symptoms or risks identified at this time. Initial Sepsis Screen: Does the patient meet any 2 criteria? No. Patient's initial sepsis screen is negative. Does the patient have a suspected source of infection? No. Patient's initial sepsis screen is negative. Risk Assessment: Do you want to hurt yourself or someone else? Patient reports no desire to harm self or others. Onset of symptoms was February 21, 2022. 10:53 Acuity: MARTINA 3 aa5 10:53 Method Of Arrival: Ambulatory aa5 Triage Assessment: 10:56 General: Appears comfortable, Behavior is calm, cooperative. Neuro: Level of aa5 Consciousness is awake, alert, obeys commands, Oriented to person, place, time, situation. Derm: Skin is dry, Skin is normal, Skin temperature is warm. Historical: - Allergies: 10:54 No Known Allergies; aa5 - PMHx: 10:53 achalasia; Bipolar disorder; Diabetes - NIDDM; Hernia; Hypertension; Schizophrenia; aa5 - PSHx: 10:53 gastrostomy tube; aa5 - Immunization history:: Adult Immunizations unknown. - Social history:: Smoking status: Patient reports the use of cigarette tobacco products, smokes one pack cigarettes per day. Vital Signs: 10:53 BP 95 / 75; Pulse 64; Resp 16 S; Temp 97.7(O); Pulse Ox 100% on R/A; Weight 49.9 kg aa5 (R); Height 5 ft. 5 in. (165.10 cm) (R); 10:53 Body Mass Index 18.30 (49.90 kg, 165.10 cm) aa5 ED Course: 10:43 Patient arrived in ED. iw 10:53 Arm band placed on. aa5 10:56 Triage completed. aa5 11:38 Amanuel Ferrer MD is Attending Physician. aa5 Administered Medications: No medications were administered Outcome: :38 Patient left the ED. aa5 11:38 Eloped from waiting room, Registration staff reported pt stated he needed to leave to [facility] go to work Signatures: Xiomara Clarke, RN RN Lana Lindsey RN RN aa
[2022-02-21 12:02] VITALS: BP 95/75; TEMP 97.7; O2SAT 100
== END 2022-02-21 11:38 | disposition left against medical advice (07) ==
LOC: ER 10:41
DX: G89.29 Other chronic pain (principal); F20.9 Schizophrenia, unspecified; F17.210 Nicotine dependence, cigarettes, uncomplicated
CPT/HCPCS: 99281

== ENCOUNTER 2022-02-24 10:12 | Emergency (ER) | payer OTHER ==
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
[2022-02-24] MEDS ORDERED: KETOROLAC 30 MG/ML INJ ONE (10:50)
--- NOTE | 2022-02-24 11:20 | ER ---
Nurse's Notes [facility] Name: Tahir Ag Jr Age: 36 yrs Sex: Male : 1985 Arrival Date: 02/24/2022 Time: 10:16 Bed 13 Private MD: Diagnosis: Unilateral inguinal hernia, without obstruction or gangrene Presentation: 02/24 10:17 Chief complaint: EMS states: they were called to the patients home for continued pain ap3 with chronic hernia. Coronavirus screen: At this time, the client does not indicate any symptoms associated with coronavirus-19. Ebola Screen: No symptoms or risks identified at this time. Initial Sepsis Screen: Does the patient meet any 2 criteria? No. Patient's initial sepsis screen is negative. Does the patient have a suspected source of infection? No. Patient's initial sepsis screen is negative. Risk Assessment: Do you want to hurt yourself or someone else? Patient reports no desire to harm self or others. Onset of symptoms is unknown. 10:17 Method Of Arrival: EMS: [facility] ap3 10:17 Acuity: MARTINA 4 ap3 Historical: - Allergies: 10:20 No Known Allergies; ap3 - PMHx: 10:20 achalasia; Bipolar disorder; Diabetes - NIDDM; Hernia; Hypertension; Schizophrenia; ap3 - Immunization history:: Adult Immunizations unknown. - Social history:: Smoking status: Patient reports the use of cigarette tobacco products, denies chronic smoking, but will smoke occasionally. Screenin:21 Abuse screen: Denies threats or abuse. Nutritional screening: No deficits noted. ap3 Tuberculosis screening: No symptoms or risk factors identified. Fall Risk None identified. Assessment: 10:20 General: Appears in no apparent distress. Behavior is calm, cooperative. Pain: ap3 Complains of pain in pelvis Pain began over a period of time. Neuro: Level of Consciousness is awake, alert, obeys commands, Oriented to person, place, time, situation, Speech is normal. Cardiovascular: Patient's skin is warm and dry. Respiratory: Airway is patent. Derm: hernia present. 10:56 Reassessment: Patient and/or family updated on plan of care and expected duration. Pain ap3 level reassessed. Patient is alert, oriented x 3, equal unlabored respirations, skin warm/dry/pink. Vital Signs: 10:17 BP 100 / 72; Pulse 78; Resp 16; Temp 97.8(TE); Pulse Ox 99% ; ap3 ED Course: 10:16 Patient arrived in ED. 10:16 [facility] Hui [facility]NP [facility] 7 10:16 Omari Wang MD is Attending Physician. 7 10:17 Louise Michaud, MARTINA is Primary Nurse. ap3 10:20 Triage completed. ap3 10:22 Arm band placed on right wrist. ap3 10:22 Patient has correct armband on for positive identification. Bed in low position. Call ap3 light in reach. Side rails up X2. Pulse ox on. NIBP on. Door closed. Noise minimized. Warm blanket given. 11:19 Ministerio Riley MD is Referral Physician. 7 11:23 No provider procedures requiring assistance completed. Patient did not have IV access ap3 during this emergency room visit. Administered Medications: 10:50 Drug: Ketorolac 30 mg Route: IM; Site: left deltoid; ap3 11:23 Follow up: Response: No adverse reaction ap3 Outcome: 11:20 Discharge ordered by . 7 11:23 Discharged to home ap3 11:23 Discharged to home ambulatory. 11:23 Condition: good 11:23 Discharge instructions given to patient, Instructed on discharge instructions, follow up and referral plans. Demonstrated understanding of instructions, follow-up care. 11:23 Patient left the ED. ap3 Signatures: Stephanie Freeman Amanda, MARTINA RN ap3 Kandace Hui FNP [place] [id number]
--- NOTE | 2022-02-24 11:20 | EDPHYS ---
Physician Documentation [facility] Name: Tahir Ag Jr Age: 36 yrs Sex: Male : 1985 Arrival Date: 02/24/2022 Time: 10:16 Bed 13 Private MD: ED Physician Omari Wang HPI: 02/24 10:41 This 36 yrs old Black Male presents to ER via EMS with complaints of R inguinal hernia. jh7 10:41 The patient reports that his hernia started hurting again last night. He states that he jh7 is going to have hernia surgery tomorrow, but that he would like something for pain now. No other complaints at this time.. Historical: - Allergies: 10:20 No Known Allergies; ap3 - PMHx: 10:20 achalasia; Bipolar disorder; Diabetes - NIDDM; Hernia; Hypertension; Schizophrenia; ap3 - Immunization history:: Adult Immunizations unknown. - Social history:: Smoking status: Patient reports the use of cigarette tobacco products, denies chronic smoking, but will smoke occasionally. ROS: 10:41 Constitutional: Negative for fever, chills, and weight loss, Cardiovascular: Negative jh7 for chest pain, palpitations, and edema, Respiratory: Negative for shortness of breath, cough, wheezing, and pleuritic chest pain, Skin: Negative for injury, rash, and discoloration, Neuro: Negative for headache, weakness, numbness, tingling, and seizure. 10:41 Abdomen/GI: Positive for R inguinal pain. 10:41 All other systems are negative. Exam: 10:41 Constitutional: This is a well developed, well nourished patient who is awake, alert, jh7 and in no acute distress. Cardiovascular: Regular rate and rhythm with a normal S1 and S2. No gallops, murmurs, or rubs. Normal PMI, no JVD. No pulse deficits. Respiratory: Lungs have equal breath sounds bilaterally, clear to auscultation and percussion. No rales, rhonchi or wheezes noted. No increased work of breathing, no retractions or nasal flaring. Skin: Warm, dry with normal turgor. Normal color with no rashes, no lesions, and no evidence of cellulitis. Neuro: Awake and alert, GCS 15, oriented to person, place, time, and situation. Cranial nerves II-XII grossly intact. Motor strength 5/5 in all extremities. Sensory grossly intact. Cerebellar exam normal. Normal gait. 10:41 Abdomen/GI: Hernia: noted in the right inguinal area, incarceration, is not appreciated, hernia is soft and not TTP. Vital Signs: 10:17 BP 100 / 72; Pulse 78; Resp 16; Temp 97.8(TE); Pulse Ox 99% ; ap3 MDM: 10:19 Patient medically screened. [facility] 11:33 Differential diagnosis: R inguinal hernia without incarceration/strangulation. Data [facility] reviewed: vital signs, nurses notes. Data interpreted: Pulse oximetry: is 99 %. Interpretation: normal. Response to treatment: the patient's symptoms have mildly improved after treatment. ED course: The patient was given 30 of Toradol IM. Before the Toradol was given, the hernia began to reduce on its own. The patient understood that he would be discharged after this. The patient left without his discharge paperwork and before attempted reduction of his hernia. He was seen by staff walking out to the lobby in no acute distress.. Administered Medications: 10:50 Drug: Ketorolac 30 mg Route: IM; Site: left deltoid; ap3 11:23 Follow up: Response: No adverse reaction ap3 Disposition: 14:53 Co-signature as Attending Physician, Omari Wang MD. rn Disposition Summary: 02/24/22 11:20 Discharge Ordered Location: Home [facility] Problem: an ongoing problem [facility] Symptoms: are unchanged [facility] Condition: Stable [facility] Diagnosis - Unilateral inguinal hernia, without obstruction or gangrene [facility] Followup: [facility] - With: Ministerio Riley MD - When: Tomorrow - Reason: Recheck today's complaints Discharge Instructions: - Discharge Summary Sheet [facility] - Inguinal Hernia, Adult [facility] Forms: - Medication Reconciliation Form [facility] - Thank You Letter [facility] - Prescription Opioid Use [facility] Signatures: Omari Wang MD MD rn Prokisch, Amanda, RN RN ap3 Kandace Hui FNP FNP [facility]
[2022-02-24 11:28] VITALS: BP 100/72; TEMP 97.8; O2SAT 99
== END 2022-02-24 11:23 | disposition home or self-care (01) ==
LOC: ER 10:12
DX: K40.90 Unilateral inguinal hernia, without obstruction or gangrene, not specified as recurrent (principal); F17.210 Nicotine dependence, cigarettes, uncomplicated; I10 Essential (primary) hypertension
CPT/HCPCS: 96372; 99283

== ENCOUNTER 2022-03-04 13:07 | Emergency (ER) | payer OTHER ==
--- OUTSIDE RECORDS SUMMARY | 2022-03-04 13:10 | XMS REPORT | Continuity of Care Document ---
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 Value Reference Range Interpretation [...] DIFF/SCN CRITERIA (test code = MDIFF) WBC [id number] 09:58:00 Test Item Value Reference Range Interpretation [...] NORMAL (test code = PLTMORPH) CBC W/AUTO [id number] 09:55:00 Test Item Value Reference Range Interpretation [...] DIFF/SCN CRITERIA (test code = MDIFF) WBC [id number] 09:55:00 Test Item Value Reference Range Interpretation Comments SEGMENTED NEUTROPHILS (test code = SEG) % 40-75 LYMPHOCYTE (test code = LYMPH) % 12.6-43.5 CBC W/AUTO [id number] 09:55:00 Test Item Value Reference Range Interpretation [...] DIFF/SCN CRITERIA (test code = MDIFF) WBC [id number] 09:55:00 Test Item Value Reference Range Interpretation Comments SEGMENTED NEUTROPHILS (test code = SEG) % 40-75 LYMPHOCYTE (test code = LYMPH) % 12.6-43.5 COMPREHENSIVE METABOLIC [id number] 09:14:00 Test Item Value Reference Range Interpretation [...] TOTAL (test code = ALKP) CBC W/AUTO [id number] 09:02:00 Test Item Value Reference Range Interpretation [...] CRITERIA (test code = MDIFF) GLUCOSE BEDSIDE [id number] 06:41:00 Test Item Value Reference Range Interpretation Comments GLUCOSE BEDSIDE TESTING (test code = 65 mg/dL 70-110 L GLUBED) COVID 19 INHOUSE [id number] 05:40:00 Test Item Value Reference Range Interpretation Comments COVID 19 INHOUSE AG NEGATIVE Negative Per manu facturer, (test code = negative result s should [id number]) be treated aspr esumptive and, if inconsi [...] co nsistent with COVID-19. - CT CHEST [id number] 03:30:00 [facility] : 1985 Sex: M Name: FIONA SANCHES JR [facility] : 1985 Age/S: 35 / M [address] [address] [place] Unit #: [id number] Loc: [place] [address] Phys: Scott Person MD Acct: [id number] Dis Date: Status: REG ER PHONE#: [phone] Exam Date: 10/06/2020 0245 FAX #: Reason:possible esophageal pneumatosis EXAMS: CPT: [id number] CT CHEST W/CONTRAST 55709 DICTATION LOCATION: H48 HISTORY: Male, 35 years [...] JR : 1985 Age/S: 35 / M [address] [address] [place] Unit #: [id number] Loc: [place] [address] Phys: Phil Person Acct: [id number] Dis Date: Status: REG ER PHONE #: [phone] Exam Date: 10/06/2020 0245 FAX #: Reason: possible esophageal pneumatosisEXAMS: CPT: [id number] CT CHEST W/CONTRAST 29636 <Continued> (i.e. scleroderma or dermatomyositis). Infiltrative neoplasm [...] (329) Young Orig Print D/T: S: 10/06/2020 (332) PAGE 2 Signed Report- CT NECK [id number] 03:11:00 [facility] : 1985 Sex: M Name: FIONA SANCHES JR [place] : 1985 Age/S: 35 / M [address] [address] [place] Unit #: [id number] Loc: [place] [address] Phys: Scott Person MD Acct: [id number] Dis Date: Status: REG ER PHONE#: [phone] Exam Date: 10/06/2020 0250 FAX #: Reason:possible esophageal pneumatosis EXAMS: CPT: [id number] CT NECK W/CONTRAST 65409 EXAM: - CT NECK W/CONTRAST LOCATION: H57 [...] Signed Report (CONTINUED) Name: FIONA SANCHES JR [place] : 1985 Age/S: 35 / M [address] [address] [place] Unit #: [id number] Loc: [place] [address] Phys: Scott Person MD Acct: [id number] Dis Date: Status: REG ER PHONE #: [phone] Exam Date: 10/06/2020 0250 FAX #: Reason: possible esophageal pneumatosis EXAMS: CPT: [id number] CT NECK W/CONTRAST [address]5741 <Continued> CC: Technologist:Valentine Momin, RT(R)(CT); CTDI: DLP: Trnscb Date/Time: 10/06/2020 (310) [email or web address] Orig Print D/T: S: 10/06/2020 (313) PAGE 2 Signed Report BASIC METABOLIC [id number] 02:14:00 Test Item Value Reference Range Interpretation [...]
--- NOTE | 2022-03-04 14:07 | ER ---
Nurse's Notes [facility] Name: Tahir Ag Jr Age: 36 yrs Sex: Male : 1985 Arrival Date: 03/04/2022 Time: 13:08 Bed 26 Private MD: Diagnosis: Presentation: 03/04 13:12 Chief complaint: Patient states: Chronic hernia pain. Coronavirus screen: At this time, ld1 the client does not indicate any symptoms associated with coronavirus-19. Ebola Screen: No symptoms or risks identified at this time. Initial Sepsis Screen: Does the patient meet any 2 criteria? No. Patient's initial sepsis screen is negative. Does the patient have a suspected source of infection? No. Patient's initial sepsis screen is negative. Risk Assessment: Do you want to hurt yourself or someone else? Patient reports no desire to harm self or others. Onset of symptoms was March 04, 2022. 13:12 Method Of Arrival: EMS: [facility] ld1 13:12 Acuity: MARTINA 4 ld1 Triage Assessment: 13:13 General: Appears in no apparent distress. comfortable, Behavior is calm, cooperative, ld1 appropriate for age. Pain: Complains of pain in pelvis Pain does not radiate. Pain currently is 6 out of 10 on a pain scale. Quality of pain is described as throbbing. EENT: No signs and/or symptoms were reported regarding the EENT system. Neuro: Level of Consciousness is awake, alert, obeys commands, Oriented to person, place, time, situation. Cardiovascular: Capillary refill < 3 seconds Patient's skin is warm and dry. Respiratory: Airway is patent Respiratory effort is even, unlabored. GI: Abdomen is flat, non-distended. : No signs and/or symptoms were reported regarding the genitourinary system. Derm: No signs and/or symptoms reported regarding the dermatologic system. Musculoskeletal: No signs and/or symptoms reported regarding the musculoskeletal system. Historical: - PMHx: 13:13 achalasia; Bipolar disorder; Diabetes - NIDDM; Hernia; Hypertension; Schizophrenia; ld1 - PSHx: 13:13 gastrostomy tube; ld1 - Immunization history:: Adult Immunizations not up to date, Client reports having NOT received the Covid vaccine. - Social history:: Smoking status: Patient reports the use of cigarette tobacco products, smokes one-half pack cigarettes per day, Patient/guardian denies using alcohol. Screenin:15 Abuse screen: Denies threats or abuse. Denies injuries from another. Nutritional ld1 screening: No deficits noted. Tuberculosis screening: No symptoms or risk factors identified. Fall Risk None identified. Assessment: 13:15 Reassessment: See triage assessment. ld1 14:05 Reassessment: Pt eloped from room. Unknown reason or time. ld1 Vital Signs: 13:12 BP 98 / 66; Pulse 84; Resp 18; Temp 98.3(TE); Pulse Ox 97% on R/A; Weight 49.9 kg; ld1 Height 5 ft. 5 in. (165.10 cm); Pain 6/10; 13:12 Body Mass Index 18.30 (49.90 kg, 165.10 cm) ld1 ED Course: 13:08 Patient arrived in ED. ld1 13:11 Teo Alvares PA is PHCP. terell 13:11 Jefry Pathak DO is Attending Physician. [facility] 13:13 Triage completed. ld1 13:13 Arm band placed on right wrist. ld1 13:15 Vi Alvarado, MARTINA is Primary Nurse. ld1 13:15 Patient has correct armband on for positive identification. Placed in gown. Bed in low ld1 position. Call light in reach. Side rails up X2. compliance monitor on. Pulse ox on. NIBP on. Door closed. Noise minimized. Warm blanket given. 13:15 No provider procedures requiring assistance completed. ld1 Administered Medications: No medications were administered Medication: 13:15 VIS not applicable for this client. ld1 Outcome: 14:05 Eloped Time discovered patient gone: March 04, 2022 at 14:06 ld1 14:06 Patient left the ED. ld1 Signatures: Teo Alvares PA PA jmm Dibbern, Lauren, RN RN ld1
[2022-03-04 14:26] VITALS: BP 98/66; TEMP 98.3; O2SAT 97
--- NOTE | 2022-03-05 14:07 | EDPHYS ---
Physician Documentation [facility] Name: Tahir Ag Jr Age: 36 yrs Sex: Male : 1985 Arrival Date: 03/04/2022 Time: 13:08 Bed 26 Private MD: ED Physician Jefry Pathak HPI: 03/04 13:26 This 36 yrs old Black Male presents to ER via EMS with complaints of Hernia pain. jmm 15:55 Onset: The symptoms/episode began/occurred at an unknown time. Modifying factors: The jmm symptoms are alleviated by nothing, the symptoms are aggravated by nothing. Associated signs and symptoms: Pertinent negatives: abdominal pain, fever, vomiting. The patient has experienced similar episodes in the past, chronically. Historical: - PMHx: 13:13 achalasia; Bipolar disorder; Diabetes - NIDDM; Hernia; Hypertension; Schizophrenia; ld1 - PSHx: 13:13 gastrostomy tube; ld1 - Immunization history:: Adult Immunizations not up to date, Client reports having NOT received the Covid vaccine. - Social history:: Smoking status: Patient reports the use of cigarette tobacco products, smokes one-half pack cigarettes per day, Patient/guardian denies using alcohol. ROS: 15:55 Constitutional: Negative for fever, chills, and weight loss, Cardiovascular: Negative jmm for chest pain, palpitations, and edema, Respiratory: Negative for shortness of breath, cough, wheezing, and pleuritic chest pain, Abdomen/GI: Negative for abdominal pain, nausea, vomiting, diarrhea, and constipation. 15:55 : Positive for testicular pain 15:55 All other systems are negative. Exam: 15:55 Constitutional: This is a well developed, well nourished patient who is awake, alert, jmm and in no acute distress. Head/Face: atraumatic. Eyes: EOMI, no conjunctival erythema appreciated ENT: Moist Mucus Membranes Neck: Trachea midline, Supple Chest/axilla: Normal chest wall appearance and motion. Cardiovascular: Regular rate and rhythm. No edema appreciated Respiratory: Normal respirations, no respiratory distress appreciated Abdomen/GI: Non distended, soft Back: Normal ROM Skin: General appearance color normal MS/ Extremity: Moves all extremities, no obvious deformities appreciated, no edema noted to the lower extremities Neuro: Awake and alert Psych: Behavior is normal, Mood is normal, Patient is cooperative and pleasant Vital Signs: 13:12 BP 98 / 66; Pulse 84; Resp 18; Temp 98.3(TE); Pulse Ox 97% on R/A; Weight 49.9 kg; ld1 Height 5 ft. 5 in. (165.10 cm); Pain 6/10; 13:12 Body Mass Index 18.30 (49.90 kg, 165.10 cm) ld1 MDM: 13:26 Patient medically screened. terell 15:57 Data reviewed: vital signs, nurses notes. terell Administered Medications: No medications were administered Disposition: 22:10 Co-signature as Attending Physician, Jefry Pathak DO I was immediately available on-site ms3 in the Emergency Department for consultation in the care of the patient.. Disposition Summary: 03/04/22 14:06 Eloped Disposition: before being seen by provider ld1 Reason: unknown ld1 Signatures: Teo Alvares PA PA jmm Sims, Marcus, DO DO ms3 Vi Alvarado, RN RN ld1
== END 2022-03-04 14:06 | disposition left against medical advice (07) ==
LOC: ER 13:07
DX: Z53.21 Procedure and treatment not carried out due to patient leaving prior to being seen by health care provider (principal)
CPT/HCPCS: 99284

== ENCOUNTER 2022-03-08 15:19 | Emergency (ER) | payer OTHER ==
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
--- NOTE | 2022-03-08 17:27 | ER ---
Nurse's Notes [facility] Name: Tahir Ag Jr Age: 36 yrs Sex: Male : 1985 Arrival Date: 03/08/2022 Time: 15:22 Bed Waiting Private MD: Diagnosis: Presentation: 03/08 16:21 Note 1550 pt not in lobby 1605 called patient no answer. ll1 ED Course: 15:22 Patient arrived in ED. ds1 15:25 Teo Alvares PA is PHCP. terell 15:25 Keshawn Fish MD is Attending Physician. terell Administered Medications: No medications were administered Outcome: 17:27 Patient left the ED. ll1 Signatures: Teo Alvares PA PA jmm Sanford, Demi ds1 Macrina Connolly RN RN ll1
--- NOTE | 2022-03-09 17:28 | EDPHYS ---
Physician Documentation [facility] Name: Tahir Ag Jr Age: 36 yrs Sex: Male : 1985 Arrival Date: 03/08/2022 Time: 15:22 Bed Waiting Private MD: ED Physician Keshawn Fish HPI: 03/08 16:47 This 36 yrs old Black Male presents to ER via Unassigned with complaints of Abdominal jmm Pain. MDM: 16:47 Patient medically screened. jmm Administered Medications: No medications were administered Disposition Summary: 03/08/22 17:26 Eloped Disposition: post triage evaluation and consult ll1 Reason: unknown ll1 Signatures: Teo Alvares PA PA jmm Lewis, Lynsay RN RN ll1
== END 2022-03-08 17:27 | disposition left against medical advice (07) ==
LOC: ER 15:19
DX: R10.9 Unspecified abdominal pain (principal); Z53.21 Procedure and treatment not carried out due to patient leaving prior to being seen by health care provider

== ENCOUNTER 2022-03-16 10:15 | Emergency (ER) | payer OTHER ==
--- OUTSIDE RECORDS SUMMARY | 2022-03-16 10:19 | XMS REPORT | Continuity of Care Document ---
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 GLUCOSE BEDSIDE [id number] 13:37:00 Test Item Value Reference Range Interpretation Comments GLUCOSE BEDSIDE TESTING (test code = 58 mg/dL 70-110 L GLUBED) CREATINE KINASE (CK)2020-10-06 11:26:00 Test Item Value Reference Range Interpretation Comments CREATINE KINASE (CK) (test code = 287 Unit/L 26-192 H CK) [id number] 11:26:00 Test Item Value Reference Range Interpretation Comments AMYLASE (test code = JOSE CARLOS) 120 Unit/L 25-115 H [id number] 11:26:00 Test Item Value Reference Range Interpretation Comments LIPASE (test code = LIP) 112 Unit/L 114-286 L CBC W/AUTO [id number] 09:58:00 Test Item Value Reference Range Interpretation [...] DIFF/SCN CRITERIA (test code = MDIFF) WBC [id number] 09:58:00 Test Item Value Reference Range Interpretation [...] NORMAL (test code = PLTMORPH) CBC W/AUTO [id number] 09:55:00 Test Item Value Reference Range Interpretation [...] DIFF/SCN CRITERIA (test code = MDIFF) WBC [id number] 09:55:00 Test Item Value Reference Range Interpretation Comments SEGMENTED NEUTROPHILS (test code = SEG) % 40-75 LYMPHOCYTE (test code = LYMPH) % 12.6-43.5 CBC W/AUTO [id number] 09:55:00 Test Item Value Reference Range Interpretation [...] DIFF/SCN CRITERIA (test code = MDIFF) WBC [id number] 09:55:00 Test Item Value Reference Range Interpretation Comments SEGMENTED NEUTROPHILS (test code = SEG) % 40-75 LYMPHOCYTE (test code = LYMPH) % 12.6-43.5 COMPREHENSIVE METABOLIC [id number] 09:14:00 Test Item Value Reference Range Interpretation [...] TOTAL (test code = ALKP) CBC W/AUTO [id number] 09:02:00 Test Item Value Reference Range Interpretation [...] CRITERIA (test code = MDIFF) GLUCOSE BEDSIDE [id number] 06:41:00 Test Item Value Reference Range Interpretation Comments GLUCOSE BEDSIDE TESTING (test code = 65 mg/dL 70-110 L GLUBED) COVID 19 INHOUSE [id number] 05:40:00 Test Item Value Reference Range Interpretation Comments COVID 19 INHOUSE AG NEGATIVE Negative Per manu facturer, (test code = negative result s should [id number]) be treated aspr esumptive and, if inconsi [...] co nsistent with COVID-19. - CT CHEST [id number] 03:30:00 [facility] : 1985 Sex: M Name: FIONA SANCHES JR [facility] : 1985 Age/S: 35 / M [address] Unit #: [id number] Loc: [place] [address] Phys: Scott Person MD Acct: [id number] Dis Date: Status: REG ER PHONE#: [phone] Exam Date: 10/06/2020 024 FAX #: Reason:possible esophageal pneumatosis EXAMS: CPT: [id number] CT CHEST W/CONTRAST 02165 DICTATION LOCATION: 8 HISTORY: Male, 35 years [...] Signed Report (CONTINUED) Name: FIONA SANCHES JR [place] : 1985 Age/S: 35 / M [address] [facility] Unit #: [id number] Loc: [place] [address] Phys: Phil Person Acct: [id number] Dis Date: Status: REG ER PHONE #: [phone] Exam Date: 10/06/2020 0245 FAX #: Reason: possible esophageal pneumatosisEXAMS: CPT: [id number] CT CHEST W/CONTRAST 35500 <Continued> (i.e. scleroderma or dermatomyositis). Infiltrative neoplasm [...] (329) t.SDR.CLW Orig Print D/T: S: 10/06/2020 (033) PAGE 2 Signed Report- CT NECK [id number] 03:11:00 [facility] : 1985 Sex: M Name: FIONA SANCHES JR [facility] : 1985 Age/S: 35 / M [address] [facility] Unit #: [id number] Loc: [place] [address] Phys: Scott Person MD Acct: [id number] Dis Date: Status: REG ER PHONE#: [phone] Exam Date: 10/06/2020 0250 FAX #: Reason:possible esophageal pneumatosis EXAMS: CPT: [id number] CT NECK W/CONTRAST 89329 EXAM: - CT NECK W/CONTRAST LOCATION: H57 [...] [place] : 1985 Age/S: 35 / M [address] Unit #: [id number] Loc: [place] [address] Phys: Scott Person MD Acct: [id number] Dis Date: Status: REG ER PHONE #: [phone] Exam Date: 10/06/2020 0250 FAX #: Reason: possible esophageal pneumatosis EXAMS: CPT: [id number] CT NECK W/CONTRAST 00302 <Continued> CC: Technologist:Valentine Momin, RT(R)(CT); CTDI: DLP: Trnscb Date/Time: 10/06/2020 (310) [email or web address] Orig Print D/T: S: 10/06/2020 (313) PAGE 2 Signed Report BASIC METABOLIC [id number] 02:14:00 Test Item Value Reference Range Interpretation [...]
--- NOTE | 2022-03-16 11:20 | EDPHYS ---
Physician Documentation [facility] Name: Tahir Ag Jr Age: 36 yrs Sex: Male : 1985 Arrival Date: 03/16/2022 Time: 10:17 Bed Waiting Private MD: ED Physician Omari Wang HPI: 03/16 10:25 This 36 yrs old Black Male presents to ER via Unassigned with complaints of hernia pain.rn 10:25 The patient presents with abdominal pain right inguinal region. Onset: The rn symptoms/episode began/occurred at an unknown time. The symptoms do not radiate. Associated signs and symptoms: Pertinent negatives: nausea and vomiting, blood in stools, fever. Modifying factors: The symptoms are alleviated by nothing, the symptoms are aggravated by movement, touching the area. Severity of pain: At its worst the pain was moderate in the emergency department the pain is unchanged. The patient has experienced similar episodes in the past, chronically. The patient has been recently seen at the [facility] Emergency Department. Pt continues to have right inguinal hernia pain, has been ongoing, several visits to ER for this, including recently. Reports having bowel movements, no acute changes in pain, no vomiting. States came for pain medication as he usually does. No abd pain or distension.. Historical: - PMHx: 11:19 achalasia; Bipolar disorder; Diabetes - NIDDM; Hernia; Hypertension; Schizophrenia; ss - PSHx: 11:19 gastrostomy tube; ss - Social history:: Smoking status: unknown. - Family history:: not pertinent. - Hospitalizations: : No recent hospitalization is reported. ROS: 10:25 Constitutional: Negative for fever, chills, and weight loss, Eyes: Negative for injury, rn pain, redness, and discharge, Neck: Negative for injury, pain, and swelling, Cardiovascular: Negative for chest pain, palpitations, and edema, Respiratory: Negative for shortness of breath, cough, wheezing, and pleuritic chest pain, Abdomen/GI: Negative for abdominal pain, nausea, vomiting, diarrhea, and constipation, Back: Negative for injury and pain, : + right inguinal hernia with pain MS/Extremity: Negative for injury and deformity, Skin: Negative for injury, rash, and discoloration, Neuro: Negative for headache, weakness, numbness, tingling, and seizure. Exam: 10:25 Constitutional: Cachectic male, no acute distress Head/Face: Normocephalic, rn atraumatic. Cardiovascular: Regular rate and rhythm. No pulse deficits. Respiratory: No increased work of breathing, no retractions or nasal flaring. Abdomen/GI: soft, non-tender, non-distended Male : Large right inguinal hernia that extends to right scrotum, no overlying skin changes, no wounds. Skin: Warm, dry with normal turgor. Normal color with no rashes, no lesions, and no evidence of cellulitis. MS/ Extremity: Pulses equal, no cyanosis. Neurovascular intact. Full, normal range of motion. Equal circumference. Neuro: Awake and alert, GCS 15 MDM: 10:24 Patient medically screened. rn 11:18 Differential diagnosis: inguinal hernia. Data reviewed: vital signs, nurses notes, old rn medical records, and as a result, I will discharge patient. Counseling: I had a detailed discussion with the patient and/or guardian regarding: the historical points, exam findings, and any diagnostic results supporting the discharge/admit diagnosis, the need for outpatient follow up, to return to the emergency department if symptoms worsen or persist or if there are any questions or concerns that arise at home. Special discussion: I discussed with the patient/guardian in detail that at this point there is no indication for admission to the hospital. It is understood, however, that if the symptoms persist or worsen the patient needs to return immediately for re-evaluation. Special discussion: Based on the history and exam findings, there is no indication for further emergent testing or inpatient evaluation. I discussed with the patient/guardian the need to see the general surgeon for further evaluation of the symptoms. ED course: After arrival and evaluation, patient does not want anything done, chooses to leave from lobby/triage, will dc home with instructions to f/u with gen surgery as told multiple times.. Administered Medications: No medications were administered Disposition Summary: 03/16/22 11:20 Discharge Ordered Location: Home rn Problem: chronic rn Symptoms: are unchanged rn Condition: Stable rn Diagnosis - Unilateral inguinal hernia, without obstruction or gangrene, recurrent rn Followup: rn - With: Private Physician - When: As needed - Reason: Recheck today's complaints, Re-evaluation by your physician Discharge Instructions: - Discharge Summary Sheet rn - Inguinal Hernia, Adult, [id number] rn Forms: - Medication Reconciliation Form rn - Thank You Letter rn - Antibiotic care nurse rn - Prescription Opioid Use rn Signatures: Omari Wang MD MD rn Smirch, Shelby, RN RN ss
--- NOTE | 2022-03-16 11:20 | ER ---
Nurse's Notes [facility] Name: Tahir Ag Jr Age: 36 yrs Sex: Male : 1985 Arrival Date: 03/16/2022 Time: 10:17 Bed Waiting Private MD: Diagnosis: Unilateral inguinal hernia, without obstruction or gangrene, recurrent Presentation: 03/16 10:17 Chief complaint: EMS states: chronic abd pain. Coronavirus screen: Client denies travel ss out of the [place] in the last 14 days. Ebola Screen: Patient denies exposure to infectious person. Patient denies travel to an Ebola-affected area in the 21 days before illness onset. Initial Sepsis Screen: Does the patient meet any 2 criteria? No. Patient's initial sepsis screen is negative. Does the patient have a suspected source of infection? No. Patient's initial sepsis screen is negative. Risk Assessment: Do you want to hurt yourself or someone else? Patient reports no desire to harm self or others. Onset of symptoms is unknown. 10:17 Method Of Arrival: EMS: [facility], [place] ss 10:17 Acuity: MARTINA 4 ss Historical: - PMHx: 11:19 achalasia; Bipolar disorder; Diabetes - NIDDM; Hernia; Hypertension; Schizophrenia; ss - PSHx: 11:19 gastrostomy tube; ss - Social history:: Smoking status: unknown. - Family history:: not pertinent. - Hospitalizations: : No recent hospitalization is reported. Assessment: 10:45 Reassessment: Pt left prior to receiving discharge papers and obtaining VS. ss ED Course: 10:17 Patient arrived in ED. mr 10:17 Arm band placed on right wrist. ss 10:24 Omari Wang MD is Attending Physician. rn 10:35 Patient's name was called from ER lobby. No response. aa5 11:19 Triage completed. ss Administered Medications: No medications were administered Outcome: 11:20 Discharge ordered by . rn 11:22 Patient left the ED. ss Signatures: Anna Oliver mr Omari Wang MD MD rn Calderon, Audri, RN RN aa5 Taryn Gil RN RN ss
== END 2022-03-16 11:22 | disposition home or self-care (01) ==
LOC: ER 10:15
DX: K40.91 Unilateral inguinal hernia, without obstruction or gangrene, recurrent (principal); E11.9 Type 2 diabetes mellitus without complications; I10 Essential (primary) hypertension; F20.9 Schizophrenia, unspecified
CPT/HCPCS: 99282

== ENCOUNTER 2022-03-23 11:17 | Emergency (ER) | payer OTHER ==
--- OUTSIDE RECORDS SUMMARY | 2022-03-23 11:21 | XMS REPORT | Continuity of Care Document ---
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 [facility] : 1985 Age/S: 35 / M [address] Unit #: [id number] Loc: [place] [address] Phys: Scott Person MD Acct: [id number] Dis Date: Status: REG ER PHONE#: [phone] Exam Date: 10/06/2020 0247 FAX #: Reason:possible esophageal pneumatosis EXAMS: CPT: [id number] CT CHEST W/CONTRAST 46892 DICTATION LOCATION: H48 HISTORY: Male, 35 years [...] Report (CONTINUED) Name: [facility] 1985 Age/S: 35 / M [address] Unit #: [id number] Loc: [place] [address] Phys: Phil Person Acct: [id number] Dis Date: Status: REG ER PHONE #: [phone] Exam Date: 10/06/2020 0245 FAX #: Reason: possible esophageal pneumatosisEXAMS: CPT: [id number] CT CHEST W/CONTRAST 10184 <Continued> (i.e. scleroderma or dermatomyositis). Infiltrative neoplasm [...] RT(R)(CT); CTDI: DLP: Trnscb Date/Time: 10/06/2020 (329) Colette.CLW Orig Print D/T: S: 10/06/2020 (0333) PAGE 2 Signed Report- CT NECK W/[id number] 03:11:00 [facility] 1985 Sex: M Name: FIONA SANCHES JR [facility] : 1985 Age/S: 35 / M [address] Unit #: [id number] Loc: [place] [address] Phys: Scott Person MD Acct: [id number] Dis Date: Status: REG ER PHONE#: [phone] Exam Date: 10/06/2020 0250 FAX #: Reason:possible esophageal pneumatosis EXAMS: CPT: [id number] CT NECK W/CONTRAST 36431 EXAM: - CT NECK W/CONTRAST LOCATION: H57 [...] JR : 1985 Age/S: 35 / M [address] Unit #: [id number] Loc: [place] [address] Phys: Scott Person MD Acct: [id number] Dis Date: Status: REG ER PHONE #: [phone] Exam Date: 10/06/2020 0250 FAX #: Reason: possible esophageal pneumatosis EXAMS: CPT: [id number] CT NECK W/CONTRAST 85188 <Continued> CC: Technologist:Valentine Momin, RT(R)(CT); CTDI: DLP: Trnscb Date/Time: 10/06/2020 (310) [email or web address] Orig Print D/T: S: 10/06/2020 (313) PAGE 2 Signed Report BASIC METABOLIC [id number] 02:14:00 Test Item Value Reference Range Interpretation [...]
--- NOTE | 2022-03-23 11:31 | ER ---
Nurse's Notes [facility] Name: Tahir Ag Jr Age: 36 yrs Sex: Male : 1985 Arrival Date: 03/23/2022 Time: 11:20 Bed Waiting Private MD: Diagnosis: Presentation: 03/23 11:20 Chief complaint: Patient states: hernia pain s/p surgery 2 weeks ago. Coronavirus iw screen: At this time, the client does not indicate any symptoms associated with coronavirus-19. Ebola Screen: Patient negative for fever greater than or equal to 101.5 degrees Fahrenheit, and additional compatible Ebola Virus Disease symptoms Patient denies exposure to infectious person. Patient denies travel to an Ebola-affected area in the 21 days before illness onset. No symptoms or risks identified at this time. Risk Assessment: Do you want to hurt yourself or someone else? Patient reports no desire to harm self or others. Onset of symptoms was March 23, 2022. 11:20 Method Of Arrival: EMS: [facility] iw Assessment: 11:29 Reassessment: pt not in lobby. ED Course: 11:20 Patient arrived in ED. as 11:28 Jefry Pathak DO is Attending Physician. ms3 Administered Medications: No medications were administered Outcome: 11:30 Patient left the ED. Signatures: Renee Bell Irene, RN RN iw Jefry Pathak DO DO ms3
== END 2022-03-23 11:30 | disposition left against medical advice (07) ==
LOC: ER 11:17
DX: Z53.21 Procedure and treatment not carried out due to patient leaving prior to being seen by health care provider (principal)
CPT/HCPCS: 99282

== ENCOUNTER 2022-04-14 11:30 | Emergency (ER) | payer OTHER ==
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
[2022-04-14] MEDS ORDERED: HYDROCODONE/APAP 5/325 MG TAB ONE (11:58)
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
--- NOTE | 2022-04-14 12:24 | RAD REPORT ---
EXAM DESCRIPTION: RADSacrum And Coccyx04/14/2022 11:56 am CLINICAL HISTORY: Back pain status post fall FINDINGS: No fracture is seen
--- NOTE | 2022-04-14 12:28 | ER ---
Nurse's Notes [facility] Name: Tahir Ag Jr Age: 37 yrs Sex: Male : 1985 Arrival Date: 04/14/2022 Time: 11:31 Bed 10 Private MD: Diagnosis: Contusion of lower back and pelvis Presentation: 04/14 11:32 Chief complaint: Patient states: slipped and fell and hurt his back and right elbow and iw right hip and tailbone, feel on his tailbone , reports pain when he walks. 11:32 Acuity: MARTINA 4 iw 11:32 Method Of Arrival: EMS: [facility] iw 11:33 Coronavirus screen: At this time, the client does not indicate any symptoms associated iw with coronavirus-19. Ebola Screen: Patient negative for fever greater than or equal to 101.5 degrees Fahrenheit, and additional compatible Ebola Virus Disease symptoms Patient denies exposure to infectious person. Patient denies travel to an Ebola-affected area in the 21 days before illness onset. No symptoms or risks identified at this time. Initial Sepsis Screen: Does the patient meet any 2 criteria? No. Patient's initial sepsis screen is negative. Does the patient have a suspected source of infection? No. Patient's initial sepsis screen is negative. Risk Assessment: Do you want to hurt yourself or someone else? Patient reports no desire to harm self or others. Onset of symptoms was April 14, 2022. Historical: - Allergies: 11:34 No Known Allergies; iw - PMHx: 11:34 achalasia; Bipolar disorder; Diabetes - NIDDM; Hernia; Hypertension; Schizophrenia; iw - PSHx: 11:34 gastrostomy tube; iw - Family history:: not pertinent. - Hospitalizations: : No recent hospitalization is reported. Assessment: 12:14 Reassessment: pt not in room , called xray, pt not in radiology. iw Vital Signs: 11:33 BP 90 / 65; Pulse 67; Resp 16; Temp 97.2; Pulse Ox 100% on R/A; iw ED Course: 11:31 Patient arrived in ED. rg4 11:33 Triage completed. iw 11:34 Arm band placed on. iw 11:37 Omari Wang MD is Attending Physician. rn 11:49 Xiomara Clarke RN is Primary Nurse. iw 11:58 XRAY Pelvis In Process Unspecified. EDMS 11:58 Sacrum And Coccyx XRAY In Process Unspecified. EDMS Administered Medications: 12:33 Not Given (Patient Eloped): HYDROcodone-acetaminophen 5 mg-325 mg 1 tabs PO once iw Outcome: 12:27 Discharge ordered by . patti 12:33 Patient left the ED. iw Signatures: Dispatcher [employer] EDXiomara Seay RN RN iw Nieto, Roman, MD MD rn Garcia, Rubi rg4 Corrections: (The following items were deleted from the chart) 11:34 11:32 Chief complaint: Patient states: slipped and fell and hurt his back and right iw elbow and right hip and tailbone, feel on his tailbone iw 11:34 11:33 BP 95 / 65; Pulse 67bpm; Resp 16bpm; Pulse Ox 100% RA; Temp 97.2F; iw iw
--- NOTE | 2022-04-14 12:28 | EDPHYS ---
Physician Documentation [facility] Name: Tahir Ag Jr Age: 37 yrs Sex: Male : 1985 Arrival Date: 04/14/2022 Time: 11:31 Bed 10 Private MD: ED Physician Omari Wang HPI: 04/14 11:49 This 37 yrs old Black Male presents to ER via EMS with complaints of Fall Injury. rn 11:49 Details of fall: The patient fell from an upright position, while walking. Onset: The rn symptoms/episode began/occurred just prior to arrival. Associated injuries: The patient sustained injury to the low back. Severity of symptoms: At their worst the symptoms were mild, in the emergency department the symptoms are unchanged. The patient has not experienced similar symptoms in the past. The patient has not recently seen a physician. Pt reports fall from standing, tripped, hit tailbone, hurts to walk, mild. Hit elbow as well but states elbow feels fine, does not think is broken.. Historical: - Allergies: 11:34 No Known Allergies; iw - PMHx: 11:34 achalasia; Bipolar disorder; Diabetes - NIDDM; Hernia; Hypertension; Schizophrenia; iw - PSHx: 11:34 gastrostomy tube; iw - Family history:: not pertinent. - Hospitalizations: : No recent hospitalization is reported. ROS: 11:49 Constitutional: Negative for fever, chills, and weight loss, Neck: Negative for injury, rn pain, and swelling, Cardiovascular: Negative for chest pain, palpitations, and edema, Respiratory: Negative for shortness of breath, cough, wheezing, and pleuritic chest pain, Abdomen/GI: Negative for abdominal pain, nausea, vomiting, diarrhea, and constipation, Back: + lower back pain MS/Extremity: Negative for injury and deformity, Skin: Negative for injury, rash, and discoloration, Neuro: Negative for headache, weakness, numbness, tingling, and seizure. Exam: 11:49 Constitutional: This is a well developed, well nourished patient who is awake, alert, rn and in no acute distress. Head/Face: Normocephalic, atraumatic. Neck: Trachea midline, no masses palpated. No cervical midline tenderness Chest/axilla: Normal chest wall appearance and motion. Nontender with no deformity. No lesions are appreciated. Cardiovascular: Regular rate and rhythm. No pulse deficits. Skin: Warm, dry MS/ Extremity: Pulses equal, no cyanosis. Neurovascular intact. Full, normal range of motion. Equal circumference. Neuro: Awake and alert, GCS 15 Vital Signs: 11:33 BP 90 / 65; Pulse 67; Resp 16; Temp 97.2; Pulse Ox 100% on R/A; iw MDM: 11:37 Patient medically screened. rn 12:26 Differential diagnosis: contusion, fracture, sprain, strain. Data reviewed: vital rn signs, nurses notes, radiologic studies, plain films, and as a result, I will discharge patient. Counseling: I had a detailed discussion with the patient and/or guardian regarding: the historical points, exam findings, and any diagnostic results supporting the discharge/admit diagnosis, radiology results, the need for outpatient follow up, to return to the emergency department if symptoms worsen or persist or if there are any questions or concerns that arise at home. Special discussion: I discussed with the patient/guardian in detail that at this point there is no indication for admission to the hospital. It is understood, however, that if the symptoms persist or worsen the patient needs to return immediately for re-evaluation. ED course: Pt states feels fine, walked out of ER to go to cafeteria, xrays negative, will dc home.. 04/14 11:41 Order name: XRAY Pelvis; Complete Time: 12:26 rn 04/14 11:41 Order name: Sacrum And Coccyx XRAY; Complete Time: 12:26 rn Administered Medications: 12:33 Not Given (Patient Eloped): HYDROcodone-acetaminophen 5 mg-325 mg 1 tabs PO once iw Disposition Summary: 04/14/22 12:27 Discharge Ordered Location: Home rn Problem: new rn Symptoms: have improved rn Condition: Stable rn Diagnosis - Contusion of lower back and pelvis rn Followup: rn - With: Private Physician - When: As needed - Reason: Recheck today's complaints, Re-evaluation by your physician Discharge Instructions: - Discharge Summary Sheet rn - Contusion rn Forms: - Medication Reconciliation Form rn - Thank You Letter rn - Antibiotic finance intern - Prescription Opioid Use rn Signatures: Dispatcher [employer] Xiomara Noel RN RN iw Wang, Omari, MD MD rn
[2022-04-14 12:39] VITALS: BP 90/65; TEMP 97.2; O2SAT 100
== END 2022-04-14 12:33 | disposition home or self-care (01) ==
LOC: ER 11:30
DX: S30.0XXA Contusion of lower back and pelvis, initial encounter (principal); I10 Essential (primary) hypertension
CPT/HCPCS: 72170; 72220

== ENCOUNTER 2022-04-16 09:24 | Emergency (ER) | payer OTHER ==
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
--- NOTE | 2022-04-16 09:32 | EDPHYS ---
Physician Documentation [facility] Name: Tahir Ag Jr Age: 37 yrs Sex: Male : 1985 Arrival Date: 04/16/2022 Time: 09:28 Bed 7 Private MD: Ministerio Renee E ED Physician Omari Wang HPI: 04/16 09:28 This 37 yrs old Black Male presents to ER via Unassigned with complaints of Fall rn Injury, tailbone pain. 09:28 Details of fall: The patient fell from an upright position, while standing. Onset: The rn symptoms/episode began/occurred 2 day(s) ago. Associated injuries: The patient sustained injury to the low back. Severity of symptoms: At their worst the symptoms were mild, in the emergency department the symptoms are unchanged. The patient has experienced similar episodes in the past. The patient has been recently seen by a physician: The patient has been recently seen at the [facility] Emergency Department. Pt reports fall onto tailbone 2 days ago, fell again today, doesn't hurt as bad today. Neg plain films 2 days ago and didn't stay for entire visit or results. Pt reports doesn't feel broken and doesn't want xrays again.. Denies head injury. Reports pain only to tailbone.. - Family history:: not pertinent. - Hospitalizations: : No recent hospitalization is reported. ROS: 09:28 Constitutional: Negative for fever, chills, and weight loss, Eyes: Negative for injury, rn pain, redness, and discharge, Neck: Negative for injury, pain, and swelling, Cardiovascular: Negative for chest pain, palpitations, and edema, Respiratory: Negative for shortness of breath, cough, wheezing, and pleuritic chest pain, Abdomen/GI: Negative for abdominal pain, nausea, vomiting, diarrhea, and constipation, Back: + tailbone pain MS/Extremity: Negative for injury and deformity, Skin: Negative for injury, rash, and discoloration, Neuro: Negative for headache, weakness, numbness, tingling, and seizure. Exam: 09:28 Constitutional: Thin male no acute distress, ambulatory into ER without assistance. rn Neck: NO cervical tenderness Chest/axilla: Normal chest wall appearance and motion. Nontender with no deformity. No lesions are appreciated. Cardiovascular: Regular rate and rhythm. No pulse deficits. Respiratory: No increased work of breathing, no retractions or nasal flaring. Back: No spinal tenderness. No costovertebral tenderness. Full range of motion. MS/ Extremity: Pulses equal, no cyanosis. Neurovascular intact. Full, normal range of motion. Equal circumference. Neuro: Awake and alert, GCS 15, oriented to person, place, time, and situation. Cranial nerves II-XII grossly intact. Motor strength 5/5 in all extremities. Sensory grossly intact. Cerebellar exam normal. Normal gait. MDM: 09:28 Patient medically screened. rn 09:28 Differential diagnosis: contusion, fracture, sprain, strain. Data reviewed: vital rn signs, nurses notes, and as a result, I will discharge patient. Counseling: I had a detailed discussion with the patient and/or guardian regarding: the historical points, exam findings, and any diagnostic results supporting the discharge/admit diagnosis, the need for outpatient follow up, to return to the emergency department if symptoms worsen or persist or if there are any questions or concerns that arise at home. Refusal of service: The patient/guardian displays adequate decision making capability and despite a detailed discussion of alternatives, benefits, risks, and consequences refuses: all X-rays. ED course: After evaluation, patient refused any intervention and walked out of ER.. 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
--- NOTE | 2022-04-16 09:37 | ER ---
Nurse's Notes [facility] Name: Tahir Ag Jr Age: 37 yrs Sex: Male : 1985 Arrival Date: 04/16/2022 Time: 09:28 Bed 7 Private MD: Ministerio Renee E Diagnosis: Contusion of lower back and pelvis - Family history:: not pertinent. - Hospitalizations: : No recent hospitalization is reported. ED Course: 04/16 09:28 Patient arrived in ED. am2 09:28 Ministerio Renee MD is Private Physician. am2 09:28 Omari Wang MD is Attending Physician. rn Administered Medications: No medications were administered Outcome: :32 Discharge ordered by . rn 09:36 Patient left the ED. eb Signatures: Omari Wang MD MD rn Moreno, Amanda 2 Francie Akers
== END 2022-04-16 09:36 | disposition home or self-care (01) ==
LOC: ER 09:24
DX: S30.0XXA Contusion of lower back and pelvis, initial encounter (principal)

== ENCOUNTER 2022-04-21 05:49 | Observation (INO) | payer OTHER ==
[2022-04-21] MEDS ORDERED: NA CHLORIDE 0.9% 500 ML ONE (06:10)
[2022-04-21 06:25] LABS: Absolute Lymphocytes (CBC) 2.6 K/uL (0.7-4.9); Hematocrit 34.2 % (39.6-49.0); Lymphocytes % 34.4 % (15.3-44.8); MCV 88.2 fL (80-100); MPV 8.3 fL (7.6-11.3); RBC Red Blood Cell Count 3.88 M/uL (4.33-5.43)
[2022-04-21 06:42] LABS: Bilirubin Total 0.3 mg/dL (0.2-1.0); Protein, Total 6.6 g/dL (6.4-8.2)
[2022-04-21 06:45] LABS: Potassium 2.4 mmol/L (3.5-5.1)
[2022-04-21 07:27] LABS: Blood Morphology Comment NOT SEEN (NOT SEEN); Platelet Estimate ADEQ
[2022-04-21] MEDS ORDERED: POTASSIUM 25 MEQ EFFERV TAB ONE (07:44)
--- NOTE | 2022-04-21 08:11 | EDPHYS ---
Physician Documentation [facility] [place] [place] Name: Tahir Ag Jr Age: 37 yrs Sex: Male : 1985 Arrival Date: 04/21/2022 Time: 05:50 Bed 6 Private MD: NEO Physician Keshawn Fish HPI: 04/21 07:12 This 37 yrs old Black Male presents to ER via EMS with complaints of weakness. kdr 07:12 Patient was stable but apparently not eating and not drinking his Ensure. He said he kdr has become increasingly weak and is losing weight. He has had no other specific complaints. He states he hurts all over without focus.. Historical: - Allergies: 05:58 No Known Allergies; as6 - Home Meds: 05:58 Hydroxyzine Oral [Active]; trazodone 100 mg Oral tab 1 tab once daily [Active]; as6 - PMHx: 05:58 achalasia; Bipolar disorder; Diabetes - NIDDM; Hernia; Hypertension; Schizophrenia; as6 - PSHx: 05:58 gastrostomy tube; as6 - Immunization history:: Client reports receiving the 2nd dose of the Covid vaccine, moderna . - Social history:: Smoking status: Patient reports the use of cigarette tobacco products, smokes one pack cigarettes per day. ROS: 07:13 Constitutional: Negative for fever, chills, he has had weight loss weight loss, Eyes: kdr Negative for injury, pain, redness, and discharge, Neck: Negative for injury, pain, and swelling, Cardiovascular: Negative for chest pain, palpitations, and edema, Respiratory: Negative for shortness of breath, cough, wheezing, and pleuritic chest pain, Back: Negative for injury and pain, : Negative for injury, bleeding, discharge, and swelling, MS/Extremity: Negative for injury and deformity, Skin: Negative for injury, rash, and discoloration, Neuro: Negative for headache, weakness, numbness, tingling, and seizure activity. Psych: Negative for depression, anxiety, suicide ideation, homicidal ideation, and hallucinations, Allergy/Immunology: Negative for hives, rash, and allergies, Endocrine: Negative for neck swelling, polydipsia, polyuria, polyphagia, and marked weight changes, Hematologic/Lymphatic: Negative for swollen nodes, abnormal bleeding, and unusual bruising. 07:13 Abdomen/GI: Positive for abdominal pain, nausea and vomiting, diarrhea, constipation. Exam: 07:13 Constitutional: This is a well developed, well nourished patient who is awake, alert, kdr and in no acute distress. Head/Face: Normocephalic, atraumatic. Eyes: Pupils equal round and reactive to light, extra-ocular motions intact. Lids and lashes normal. Conjunctiva and sclera are non-icteric and not injected. Cornea within normal limits. Periorbital areas with no swelling, redness, or edema. Chest/axilla: Normal chest wall appearance and motion. Nontender with no deformity. No lesions are appreciated. Cardiovascular: Regular rate and rhythm with a normal S1 and S2. No gallops, murmurs, or rubs. Normal PMI, no JVD. No pulse deficits. Respiratory: Lungs have equal breath sounds bilaterally, clear to auscultation and percussion. No rales, rhonchi or wheezes noted. No increased work of breathing, no retractions or nasal flaring. Back: No spinal tenderness. No costovertebral tenderness. Full range of motion. Skin: Warm, dry with normal turgor. Normal color with no rashes, no lesions, and no evidence of cellulitis. MS/ Extremity: Pulses equal, no cyanosis. Neurovascular intact. Full, normal range of motion. Neuro: Awake and alert, GCS 15, oriented to person, place, time, and situation. Cranial nerves II-XII grossly intact. Motor strength 5/5 in all extremities. Sensory grossly intact. Cerebellar exam normal. Normal gait. 08:45 ECG was reviewed by the Attending Physician. [facility] Vital Signs: 05:54 BP 89 / 64; Pulse 50; Resp 18 S; Temp 97.5(O); Pulse Ox 99% on R/A; Weight 40.64 kg as6 (M); Height 5 ft. 5 in. (165.10 cm) (R); Pain 10/10; 08:00 BP 92 / 62; Pulse 56; Resp 16; Pulse Ox 100% on R/A; ss 09:53 BP 123 / 88; Pulse 47; Resp 15; Pulse Ox 100% ; Pain 7/10; ss 12:47 BP 104 / 72; Pulse 76; Resp 16; Pulse Ox 100% on R/A; ss 05:54 Body Mass Index 14.91 (40.64 kg, 165.10 cm) as6 Procedures: 09:04 Peripheral line: by aseptic technique a peripheral line was placed in the left external daniel jugular vein. MDM: 07:50 Patient medically screened. [facility] 08:08 Data reviewed: vital signs, nurses notes, lab test result(s), EKG, radiologic studies, [facility] plain films. 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 Test interpretation: by ED physician or midlevel provider: ECG, plain radiologic studies. Counseling: I had a detailed discussion with the patient and/or guardian regarding: the historical points, exam findings, and any diagnostic results supporting the discharge/admit diagnosis, lab results, radiology results, the need for further work-up and treatment in the hospital. 04/21 05:51 Order name: CBC with Diff; Complete [facility]: 08:06 [facility] 04/21 05:51 Order name: CMP; Complete Time: 14:12 [facility] 04/21 05:51 Order name: Lipase; Complete Time: 14:12 [facility] 04/21 07:27 Order name: Manual Differential; Complete Time: 08:06 [facility] 04/21 08:07 Order name: Phosphorus; Complete Time: 14:12 [facility] 04/21 08:08 Order name: SARS-COV-2 RT PCR (Document "Date of Onset" if Symptomatic); Complete Time: [facility] 14:12 04/21 08:08 Order name: Chest Single View XRAY; Complete Time: 14:12 [facility] 04/21 08:22 Order name: Phosphorus; Complete Time: 14:12 [facility] 04/21 10:06 Order name: CBC with Automated Diff [facility] 04/21 10:06 Order name: CBC with Automated Diff [facility] 04/21 10:06 Order name: Comprehensive Metabolic Panel [facility] 04/21 10:06 Order name: Comprehensive Metabolic Panel [facility] 04/21 10:08 Order name: Basic Metabolic Panel; Complete Time: 14:12 [facility] 04/21 05:51 Order name: IV Saline Lock; Complete [facility]: 08:12 [facility] 04/21 05:51 Order name: Labs collected and sent; Complete Time: 06:36 [facility] 04/21 08:08 Order name: EKG; Complete Time: 08:09 [facility] 04/21 08:08 Order name: EKG - Nurse/Tech; Complete Time: 08:43 daniel 04/21 10:06 Order name: Regular EDMS EC:45 Rate is 44 beats/min. Rhythm is regular. QRS Hassell is Normal. OR interval is normal. QRS daniel interval is normal. QT interval is normal. No Q waves. T waves are Normal. No ST changes noted. Clinical impression: Sinus bradycardia and No evidence of ischemia. Interpreted by me. Reviewed by me. Administered Medications: 07:30 Not Given (unavailable per pharmacyy): Potassium Chloride Liquid 40 mEq PO once aa5 07:39 Drug: K-Lyte (potassium) Effervescent Tablet 50 mEq Route: PO; ss 09:01 Follow up: Response: No adverse reaction ss 08:11 Drug: NS 0.9% 500 ml Route: IV; Rate: 1 bolus; Site: right antecubital; ss 08:40 Drug: Pepcid (famotidine) 20 mg Route: IVP; Site: right antecubital; ss 10:48 Follow up: Response: No adverse reaction ss 08:43 Drug: Potassium Chloride 20 mEq Route: IV; Rate: per protocol; Site: right antecubital; ss 10:48 Follow up: IV Status: Completed infusion ss 09:52 Drug: morphine 4 mg {Note: RASS 0 pain level 7/10.} Route: IVP; Infused Over: 4 mins; ss Site: left jugular; 10:48 Follow up: Response: No adverse reaction; Pain is decreased ss 09:52 Drug: Zofran (Ondansetron) 4 mg Route: IVP; Site: left jugular; ss 10:48 Follow up: Response: No adverse reaction; No change in condition ss 10:49 Drug: NS 0.9% with KCl 20 mEq/L 1000 ml Route: IV; Rate: 125 ml/hr; Site: left jugular; ss 14:39 Follow up: IV Status: infusion dc'd upon leaving AMA; IV Intake: 600ml ss Disposition Summary: 04/21/22 08:10 Hospitalization Ordered Hospitalization Status: Observation daniel Provider: Aryan Florence cha Condition: Stable daniel Problem: new daniel Symptoms: have improved daniel Bed/Room Type: Standard daniel Location: [facility] ER HOLD(04/21/22 14:36) Room Assignment: ERHOLD-(04/21/22 14:36) ss Diagnosis - Weakness daniel - Adult failure to thrive daniel - Achalasia of cardia daniel - Hypokalemia daniel Forms: - Medication Reconciliation Form daniel - SBAR form daniel Signatures: Dispatcher [employer] EDKeshawn Meyer MD MD cha Rittger, Kevin, MD MD kdr Mickail, Joel, PA PA jmm Calderon, Audri, RN RN aa5 Taryn Gil RN RN ss Keven Hope RN RN as6 Corrections: (The following items were deleted from the chart) 14: 08:10 Telemetry/MedSurg (observation) daniel ss 14:36 08:10 daniel ss
--- NOTE | 2022-04-21 08:11 | ER ---
Nurse's Notes [facility] Name: Tahir gA Jr Age: 37 yrs Sex: Male : 1985 Arrival Date: 04/21/2022 Time: 05:50 Bed 6 Private MD: Diagnosis: Weakness;Adult failure to thrive;Achalasia of cardia;Hypokalemia Presentation: 04/21 05:54 Chief complaint: EMS states: called out for weakness d/t pt only taking 2 bottles of as6 ensure through his PEG tube, pt is supposed to be taking 8. when asked why pt is only taking 2 pt could not provide a reason. Coronavirus screen: At this time, the client does not indicate any symptoms associated with coronavirus-19. Ebola Screen: No symptoms or risks identified at this time. Initial Sepsis Screen: Does the patient meet any 2 criteria? No. Patient's initial sepsis screen is negative. Does the patient have a suspected source of infection? No. Patient's initial sepsis screen is negative. Risk Assessment: Do you want to hurt yourself or someone else? Patient reports no desire to harm self or others. Onset of symptoms is unknown. 05:54 Method Of Arrival: EMS: [facility] as6 05:54 Acuity: MARTINA 3 as6 Historical: - Allergies: 05:58 No Known Allergies; as6 - Home Meds: 05:58 Hydroxyzine Oral [Active]; trazodone 100 mg Oral tab 1 tab once daily [Active]; as6 - PMHx: 05:58 achalasia; Bipolar disorder; Diabetes - NIDDM; Hernia; Hypertension; Schizophrenia; as6 - PSHx: 05:58 gastrostomy tube; as6 - Immunization history:: Client reports receiving the 2nd dose of the Covid vaccine, moderna . - Social history:: Smoking status: Patient reports the use of cigarette tobacco products, smokes one pack cigarettes per day. Screenin:59 Abuse screen: Denies threats or abuse. Denies injuries from another. Nutritional as6 screening: Tuberculosis screening: No symptoms or risk factors identified. Fall Risk None identified. Assessment: 05:59 General: Appears in no apparent distress. slender, unkempt, Behavior is calm, as6 cooperative. General: Reports fatigue for. Pain: Complains of pain in "everywhere". Neuro: Level of Consciousness is awake, alert, obeys commands, Oriented to person, place, time, situation, Reports weakness. Respiratory: Respiratory effort is even, unlabored. GI: PEG tube. 06:56 General: several attempts to start IV, unsuccessful . as6 07:22 Reassessment: faxed liquid potassium order to pharmacy. Awaiting for medication to ss arrive. 08:00 General: Appears in no apparent distress. comfortable, unkempt, Behavior is calm, ss cooperative, Denies fever. Neuro: Respiratory: Airway is patent Respiratory effort is even, unlabored, Respiratory pattern is regular, symmetrical. GI: PEG tube clamped. : No signs and/or symptoms were reported regarding the genitourinary system. Derm: Skin temperature is warm. 09:53 Reassessment: RASS 0, pain level 7/10. Pt c/o chronic pain "all over" Zofran and ss morphine given as ordered. 09:54 Reassessment: Pt verbalizes understanding of admission for further evaluation and ss treatment. Call light remains within reach. Awaiting room assignment. 12:00 Reassessment: Patient appears in no apparent distress at this time. Patient and/or ss family updated on plan of care and expected duration. Pain level reassessed. Patient is alert, oriented x 3, equal unlabored respirations, skin warm/dry/pink. Patient states feeling better. Patient states symptoms have improved. 13:00 Reassessment: Pt ate 100% of diet tray. ss 14:36 Reassessment: While awaiting fo room assignment, pt states, "I feel better. I'm ready ss to go home, can you take out my IV." Spoke with patient regarding risks involved with leaving despite him feeling better. Pt still insisted on leaving. Dr. Florence notified and states ok to leave AMA. AMA form signed. Vital Signs: 05:54 BP 89 / 64; Pulse 50; Resp 18 S; Temp 97.5(O); Pulse Ox 99% on R/A; Weight 40.64 kg as6 (M); Height 5 ft. 5 in. (165.10 cm) (R); Pain 10/10; 08:00 BP 92 / 62; Pulse 56; Resp 16; Pulse Ox 100% on R/A; ss 09:53 BP 123 / 88; Pulse 47; Resp 15; Pulse Ox 100% ; Pain 7/10; ss 12:47 BP 104 / 72; Pulse 76; Resp 16; Pulse Ox 100% on R/A; ss 05:54 Body Mass Index 14.91 (40.64 kg, 165.10 cm) as6 ED Course: 05:50 Patient arrived in ED. mw2 05:50 Amanuel Ferrer MD is Attending Physician. kdr 05:54 Keven Hope RN is Primary Nurse. as6 05:58 Triage completed. as6 05:59 Arm band placed on. as6 06:00 Bed in low position. Call light in reach. Side rails up X2. Pulse ox on. NIBP on. Warm as6 blanket given. 07:45 Missed attempt(s): 24 gauge in right antecubital area. ss 07:50 Attending Physician role handed off by Amanuel Ferrer MD daniel 07:50 Keshawn Fish MD is Attending Physician. daniel 07:50 Missed attempt(s): 22 gauge in right antecubital area. Bleeding controlled, band aid ss applied, catheter tip intact. 08:02 Inserted saline lock: 22 gauge in right antecubital area, using aseptic technique. ss ,using aseptic technique. Insertion by MARTINA Solano. 08:09 Aryan Florence MD is Hospitalizing Provider. daniel 08:34 Chest Single View XRAY In Process Unspecified. EDMS 08:43 Inserted saline lock: 22 gauge in left forearm, using aseptic technique. ,using aseptic ss technique. Insertion by MARTINA Solano. 13:00 No provider procedures requiring assistance completed. ss 14:38 IV discontinued, intact, bleeding controlled, No redness/swelling at site. Pressure ss dressing applied, x 3. Administered Medications: 07:30 Not Given (unavailable per pharmacyy): Potassium Chloride Liquid 40 mEq PO once aa5 07:39 Drug: K-Lyte (potassium) Effervescent Tablet 50 mEq Route: PO; ss 09:01 Follow up: Response: No adverse reaction ss 08:11 Drug: NS 0.9% 500 ml Route: IV; Rate: 1 bolus; Site: right antecubital; ss 08:40 Drug: Pepcid (famotidine) 20 mg Route: IVP; Site: right antecubital; ss 10:48 Follow up: Response: No adverse reaction ss 08:43 Drug: Potassium Chloride 20 mEq Route: IV; Rate: per protocol; Site: right antecubital; ss 10:48 Follow up: IV Status: Completed infusion ss 09:52 Drug: morphine 4 mg {Note: RASS 0 pain level 7/10.} Route: IVP; Infused Over: 4 mins; ss Site: left jugular; 10:48 Follow up: Response: No adverse reaction; Pain is decreased ss 09:52 Drug: Zofran (Ondansetron) 4 mg Route: IVP; Site: left jugular; ss 10:48 Follow up: Response: No adverse reaction; No change in condition ss 10:49 Drug: NS 0.9% with KCl 20 mEq/L 1000 ml Route: IV; Rate: 125 ml/hr; Site: left jugular; ss 14:39 Follow up: IV Status: infusion dc'd upon leaving AMA; IV Intake: 600ml ss Medication: 08:00 VIS not applicable for this client. ss Intake: 14:39 IV: 600ml; Total: 600ml. ss 14:40 PO: 400ml; IV: 1100ml (IV Fluid); Total: 2100ml. ss Output: 14:40 Urine: 540ml (Voided); Total: 540ml. ss Outcome: 08:10 Decision to Hospitalize by Provider. daniel 14:37 Patient left the ED. iw 14:38 AMA Other AMA form signed. Pt left from ER while awaiting for room assignment. ss 14:38 Condition: stable 14:38 Instructed on follow up and referral plans. Signatures: Dispatcher [employer] EDKeshawn Meyer MD MD cha Rittger, Kevin, MD MD kdr Williams, Irene, RN RN Taryn Gil RN RN Enedina Waldrop mw2 Keven Hope RN RN as6 Lana Lindsey RN aa5 Corrections: (The following items were deleted from the chart) 08:02 08:00 No provider procedures requiring assistance completed. ss ss 08:02 08:00 Inserted saline lock: 22 gauge in right antecubital area, using aseptic ss technique. ,using aseptic technique. Insertion by MARTINA Solano
[2022-04-21] MEDS ORDERED: NS KCL 20MEQ 1,000 ML IV ONE (08:24)
[2022-04-21] MEDS ORDERED: FAMOTIDINE 20 MG/2 ML VIAL IV ONE (08:24)
[2022-04-21] MEDS ORDERED: KCL 20 MEQ/100 mL IVPB 100 ML IV ONE (08:24)
[2022-04-21 08:29] LABS: Phosphorus 2.8 mg/dL (2.5-4.9)
--- NOTE | 2022-04-21 09:03 | RAD REPORT ---
EXAM DESCRIPTION: RAD - Chest Single View - 04/21/2022 8:32 am CLINICAL HISTORY: COUGH COMPARISON: Chest Single View dated 12/29/2021; Chest Single View dated 12/20/2021; Chest Single View d ated 12/19/2021; Chest Single View dated 01/03/2021 FINDINGS: Lines: None. Lungs: No evidence of edema or pneumonia. Pleural: No significant pleural effusions or pneumothorax. Cardiac: The heart size is within normal limits. Bones: No acute fractures. Other: IMPRESSION: No acute cardiopulmonary disease.
[2022-04-21] MEDS ORDERED: MORPHINE 4 MG/ML SYR ONE (09:53)
[2022-04-21] MEDS ORDERED: ONDANSETRON 4 MG/2 ML VIAL ONE (09:53)
[2022-04-21] MEDS ORDERED: ACETAMINOPHEN 500 MG TAB PO PRN (10:03)
[2022-04-21] MEDS ORDERED: MORPHINE 2 MG/ML SYR IV PRN (10:03)
[2022-04-21] MEDS ORDERED: ONDANSETRON 4 MG/2 ML VIAL IV PRN (10:03)
[2022-04-21] MEDS ORDERED: NA CHLORIDE 0.9% 1,000 ML IV SCH (11:00)
[2022-04-21 11:51] LABS: Potassium 2.7 mmol/L (3.5-5.1)
[2022-04-21] MEDS ORDERED: POTASSIUM 25 MEQ EFFERV TAB PO ONE (12:04)
[2022-04-21 15:04] VITALS: TEMP 97.5
[2022-04-21 15:06] VITALS: O2SAT 100
[2022-04-21 15:09] VITALS: BP 104/72
--- NOTE | 2022-04-21 15:39 | P.SSS ---
Patient History Date of Service: 04/21/22 Reason for admission: Myopathy with hypokalemia History of Present Illness: Patient is a 37-year-old gentleman who is well-known to me from multiple admissions who came to the hospital with generalized weakness. Patient was found to have hypokalemia. Patient was started on potassium supplementation. Patient was to be admitted for observation. Allergies No Known Allergies Allergy (Unverified 12/10/11 10:57) Home Medications: Potassium Bicarbonate/Cit AC [Effer-K 20 Meq Tablet Eff] 20 meq PO DAILY 30 Days #30 tablet.eff 08/20/21 Risperidone [Risperdal] 1 mg PO BID 12/19/21 Sertraline [Zoloft*] 50 mg PO BID 12/19/21 Trazodone HCl 50 mg PO BEDTIME 12/19/21 hydrOXYzine pamoate [Hydroxyzine Pamoate] 50 mg PO Q6HP PRN 12/19/21 - Past Medical/Surgical History Diabetic: Yes -: Diabetes mellitus type 2 -: Achalasia with severe malnutrition -: Bipolar disorder -: Schizophrenia -: HTN -: PEG tube Psychosocial/ Personal History: Patient with severe bipolar/schizophrenia, achalasia, chronic wounds. Patient was staying with his parents who are now disabled. - Family History Mother -: Diabetes - Social History Alcohol use: No CD- Drugs: No Caffeine use: No Review of Systems 10-point ROS is otherwise unremarkable Physical Examination - Vital Signs Temperature: 97.5 F Blood Pressure: 104/72 Pulse: 76 Respirations: 16 - Physical Exam General: Alert, In no apparent distress, Oriented x3 HEENT: Atraumatic, PERRLA, Mucous membr. moist/pink, EOMI, Sclerae nonicteric Neck: Supple, 2+ carotid pulse no bruit, No LAD, Without JVD or thyroid abnormality Respiratory: Clear to auscultation bilaterally, Normal air movement Cardiovascular: Regular rate/rhythm, Normal S1 S2 Gastrointestinal: Normal bowel sounds, No tenderness Musculoskeletal: No tenderness Integumentary: No rashes Neurological: Normal gait, Normal speech, Normal strength at 5/5 x4 extr, Normal tone, Normal affect Lymphatics: No axilla or inguinal lymphadenopathy - Studies Laboratory Data (last 24 hrs) 04/21/22 06:13: Phosphorus 2.9 04/21/22 06:13: Sodium 143, Potassium 2.4 L*, BUN 5 L, Creatinine 0.78, Glucose 80, Phosphorus 2.8, Total Bilirubin 0.3, AST 17, ALT 12, Alkaline Phosphatase 83, Lipase 88 04/21/22 06:13: WBC 7.7, Hgb 11.6 L, Hct 34.2 L, Plt Count 262 - Diagnosis (Problem(s)) (1) Hypokalemia Status: Acute (2) Bipolar 1 disorder Status: Chronic (3) S/P percutaneous endoscopic gastrostomy (PEG) tube placement Status: Chronic (4) Schizophrenia Status: Chronic Qualifiers: Treatment Summary: Patient did not stay in the hospital and left AGAINST MEDICAL ADVICE. We are in the process of correcting his potassium. - Disposition Disposition: AMA-LEFT AGAINST MEDICAL ADVIC Condition: FAIR Time Spent Managing Pts Care (In Minutes): 45
--- NOTE | 2022-04-23 09:54 | EKG ---
Test Date: 2022-04-21 Test Time: 08:35:27 Gerontological Nurse Practitioner: DICK MEASUREMENT RESULTS: Intervals: Rate: 44 WI: 168 QRSD: 86 QT: 546 QTc: 466 [place]: P: 61 WI: 168 QRS: 48 T: 65 INTERPRETIVE STATEMENTS: Marked sinus bradycardia Abnormal ECG Compared to ECG 01/17/2022 21:09:19 Sinus rhythm no longer present Electronically Signed On 04-23-22 09:49:05 CDT by Grant Bill
== END 2022-04-21 14:42 | disposition left against medical advice (07) ==
LOC: ER 05:49 → ERHOLD 10:03
PROVIDERS: ADMIT Hospitalist; ATTEND Hospitalist
PROC: 05HQ33Z Insertion of Infusion Device into Left External Jugular Vein, Percutaneous Approach (ICD-10-PCS; principal; 2022-04-21)
DX: E87.6 Hypokalemia (principal); Z53.29 Procedure and treatment not carried out because of patient's decision for other reasons; K22.0 Achalasia of cardia; R62.7 Adult failure to thrive; E43 Unspecified severe protein-calorie malnutrition; Z68.1 Body mass index [BMI] 19.9 or less, adult; R53.1 Weakness; E11.9 Type 2 diabetes mellitus without complications; I10 Essential (primary) hypertension; F31.9 Bipolar disorder, unspecified; F20.9 Schizophrenia, unspecified; Z93.1 Gastrostomy status; F17.210 Nicotine dependence, cigarettes, uncomplicated; Z20.822 Contact with and (suspected) exposure to COVID-19; Z83.3 Family history of diabetes mellitus
CPT/HCPCS: 93005; 85025; 80048; 36415; 84100 ×2; 83690; 80053; 71045; 99284; 36569; U0003; J3480 ×2; J7040; J2405; J3490; G0378 ×2

== ENCOUNTER 2022-05-04 19:00 | Emergency (ER) | payer OTHER ==
--- NOTE | 2022-05-04 21:09 | RAD REPORT ---
EXAM DESCRIPTION: RAD - Chest Single View - 05/04/2022 8:54 pm CLINICAL HISTORY: syncope Chest pain. COMPARISON: Chest Single View dated 04/21/2022; Chest Single View dated 12/29/2021; Chest Single View d ated 12/20/2021; Chest Single View dated 12/19/2021 FINDINGS: Portable technique limits examination quality. The lungs are grossly clear. The heart is normal in size. No displaced fractures. The lungs are grossly clear. The heart is normal in size. Esophageal dilatation likely present. No di splaced fractures.Both humeri demonstrate osteochondromas. IMPRESSION: No acute intrathoracic process suspected.
--- NOTE | 2022-05-04 21:39 | RAD REPORT ---
EXAM DESCRIPTION: CT - [id number] - 05/04/2022 9:29 pm CLINICAL HISTORY: Trauma, head and neck injury. syncope COMPARISON: Head C Spine Mpr Wo Con dated 08/18/2021; Head C Spine Mpr Wo Con dated 06/12/2021 TECHNIQUE: Axial 5 mm thick images of the head were obtained. Axial 2 mm thick images of the cervical spine were obtained with sagittal and coronal reconstruction images generated and reviewed. All CT scans are performed using dose optimization technique as appropriate and may include automated exposure control or mA/KV adjustment according to patient size. FINDINGS: CT HEAD WITHOUT CONTRAST: No acute hemorrhage, hydrocephalus or extra-axial collection is identified.No areas of brain edema or midline shift. Mild mucosal thickening involves both maxillary antra.The calvarium is intact. CT CERVICAL SPINE WITHOUT CONTRAST: No fracture or subluxation.No prevertebral soft tissues swelling is identified. IMPRESSION: No acute intracranial or cervical spine findings.
[2022-05-04 21:41] LABS: Absolute Lymphocytes (CBC) 1.6 K/uL (0.7-4.9); MCV 87.6 fL (80-100); RBC Red Blood Cell Count 3.99 M/uL (4.33-5.43)
[2022-05-04 21:42] LABS: Protime INR 1.12
[2022-05-04 21:51] LABS: ALT/SGPT 18 U/L (12-78); AST/SGOT 12 U/L (15-37); Albumin 2.5 g/dL (3.4-5.0); Alkaline Phosphatase 78 U/L (45-117); BUN Blood Urea Nitrogen 11 mg/dL (7-18); Bicarbonate 32 mmol/L (21-32); Bilirubin Direct 0.1 mg/dL (0-0.2); Bilirubin Total 0.3 mg/dL (0.2-1.0); Glomerular Filtration Rate 99 ml/min (=/>90); Glucose Level 87 mg/dL (74-106); Magnesium 2.3 mg/dL (1.8-2.4); NT PRO-BNP 57 pg/mL (<125); Potassium 4.8 mmol/L (3.5-5.1); Protein, Total 7.8 g/dL (6.4-8.2); Sodium Level 139 mmol/L (136-145)
[2022-05-04 21:54] LABS: Troponin High Sensitivity < 3.0 pg/mL (<58.9)
[2022-05-04] MEDS ORDERED: ACETAMINOPHEN 325 MG TABLET ONE (21:59)
--- NOTE | 2022-05-04 22:20 | ER ---
Nurse's Notes [facility] Name: Tahir Ag Jr Age: 37 yrs Sex: Male : 1985 Arrival Date: 05/04/2022 Time: 19:00 Bed 18 Private MD: Diagnosis: Presentation: 05/04 19:01 Chief complaint: EMS states: toned out for multiple syncopal episodes today - reports ld1 hitting head. Coronavirus screen: At this time, the client does not indicate any symptoms associated with coronavirus-19. Ebola Screen: No symptoms or risks identified at this time. Initial Sepsis Screen: Does the patient meet any 2 criteria? No. Patient's initial sepsis screen is negative. Does the patient have a suspected source of infection? No. Patient's initial sepsis screen is negative. Risk Assessment: Do you want to hurt yourself or someone else? Patient reports no desire to harm self or others. Onset of symptoms was May 04, 2022. 19:01 Method Of Arrival: EMS: [facility] ld1 19:01 Acuity: MARTINA 3 ld1 Triage Assessment: 19:03 General: Appears in no apparent distress. comfortable, Behavior is calm, cooperative, ld1 appropriate for age. Pain: Denies pain. EENT: No signs and/or symptoms were reported regarding the EENT system. Neuro: Level of Consciousness is awake, alert, obeys commands, Oriented to person, place, time, situation, Appropriate for age Reports a syncopal episode. Cardiovascular: Capillary refill < 3 seconds Patient's skin is warm and dry. Respiratory: Airway is patent Respiratory effort is even, unlabored. GI: Abdomen is flat, non-distended. : No signs and/or symptoms were reported regarding the genitourinary system. Derm: No signs and/or symptoms reported regarding the dermatologic system. Musculoskeletal: No signs and/or symptoms reported regarding the musculoskeletal system. Historical: - Allergies: 19:03 No Known Allergies; ld1 - Home Meds: 19:03 risperidone 1 mg/mL oral soln 1 mL once daily [Active]; Depakote 125 mg Oral TbEC 1 tab ld1 2 times per day [Active]; - PMHx: 19:03 achalasia; Bipolar disorder; Diabetes - NIDDM; Hernia; Hypertension; Schizophrenia; ld1 19:03 Seizure; ld1 - PSHx: 19:03 gastrostomy tube; ld1 - Immunization history:: Adult Immunizations up to date, Client reports having NOT received the Covid vaccine. - Social history:: Smoking status: Patient denies any tobacco usage or history of. Patient/guardian denies using alcohol. Screenin:07 Abuse screen: Denies threats or abuse. Denies injuries from another. Nutritional sm5 screening: No deficits noted. Tuberculosis screening: No symptoms or risk factors identified. Fall Risk None identified. Assessment: 19:45 General: Appears in no apparent distress. Behavior is cooperative. Pain: Complains of sm5 pain in head. Neuro: Level of Consciousness is awake, alert, obeys commands, Oriented to person, place, time, situation. Cardiovascular: Capillary refill < 3 seconds Patient's skin is warm and dry. Rhythm is regular. Respiratory: Airway is patent Trachea midline Respiratory effort is even, unlabored. 22:18 Reassessment: pt walking out of room stating he is leaving and wants to go home. 5 Provider made aware. Pt left before signing AMA paperwork. Vital Signs: 19:01 BP 90 / 56; Pulse 107; Resp 18; Pulse Ox 97% on R/A; Weight 52.16 kg; Height 5 ft. 9 ld1 in. (175.26 cm); Pain 0/10; 22:07 BP 94 / 66; Pulse 56; Resp 17; Pulse Ox 98% on R/A; sm5 19:01 Body Mass Index 16.98 (52.16 kg, 175.26 cm) ld1 ED Course: 19:00 Patient arrived in ED. as 19:03 Triage completed. ld1 19:03 Arm band placed on right wrist. ld1 19:15 Keshawn Schilling PA is PHCP. cp 19:15 Alan Nguyễn MD is Attending Physician. cp 19:39 Yaneth Ruggiero RN is Primary Nurse. sm5 20:53 EKG done, by ED staff, reviewed by Alan gNuyễn MD. wm 20:56 XRAY Chest (1 view) In Process Unspecified. EDMS 21:15 Initial lab(s) drawn, by nd, sent to lab. Inserted saline lock: 18 gauge in right upper bb arm, using aseptic technique. Blood collected. 21:31 CT Head C Spine In Process Unspecified. EDMS 22:17 Patient has correct armband on for positive identification. Placed in gown. Bed in low sm5 position. Call light in reach. 22:18 No provider procedures requiring assistance completed. IV discontinued, intact, sm5 bleeding controlled, No redness/swelling at site. Pressure dressing applied. Administered Medications: 22:00 Drug: NS 0.9% 1000 ml Route: IV; Rate: 1 bolus; Site: right upper arm; sm5 22:00 Drug: Acetaminophen 650 mg Route: PO; sm5 Medication: 22:17 VIS not applicable for this client. 5 Point of Care Testing: Blood Glucose: 19:03 Blood Glucose: 159 mg/dL; ld1 Ranges: Outcome: 22:18 Eloped from patient exam room, after seeing physician sm5 22:18 Condition: stable 22:18 Instructed on pt eloped 22:19 Patient left the ED. 5 Signatures: Dispatcher [employer] EDMS Renee Bell Brenda, RN RN Keshawn Mendosa PA PA cp Dibbern, Lauren, RN RN ld1 Adela Love Sarah RN RN 5
[2022-05-04 22:59] VITALS: BP 94/66; O2SAT 98
--- NOTE | 2022-05-05 07:49 | EKG ---
Test Date: 2022-05-04 Test Time: 20:45:53 [employer] Director: MEASUREMENT RESULTS: Intervals: Rate: 60 VA: 138 QRSD: 68 QT: 408 QTc: 408 [place]: P: 67 VA: 138 QRS: 86 T: 81 INTERPRETIVE STATEMENTS: Normal sinus rhythm Normal ECG Compared to ECG 04/21/2022 08:35:27 Sinus bradycardia no longer present Electronically Signed On 05-05-22 07:48:16 CDT by Grant Bill
--- NOTE | 2022-05-05 22:19 | EDPHYS ---
Physician Documentation [facility] Name: Tahir Ag Jr Age: 37 yrs Sex: Male : 1985 Arrival Date: 05/04/2022 Time: 19:00 Bed 18 Private MD: ED Physician Alan Nguyễn HPI: 05/04 20:30 This 37 yrs old Black Male presents to ER via EMS with complaints of Syncope. cp 20:30 The patient has experienced syncope, lost consciousness. Onset: The symptoms/episode cp began/occurred today. Duration: The patient has had multiple episodes, that last an unknown period of time. Historical: - Allergies: 19:03 No Known Allergies; ld1 - Home Meds: 19:03 risperidone 1 mg/mL oral soln 1 mL once daily [Active]; Depakote 125 mg Oral TbEC 1 tab ld1 2 times per day [Active]; - PMHx: 19:03 achalasia; Bipolar disorder; Diabetes - NIDDM; Hernia; Hypertension; Schizophrenia; ld1 19:03 Seizure; ld1 - PSHx: 19:03 gastrostomy tube; ld1 - Immunization history:: Adult Immunizations up to date, Client reports having NOT received the Covid vaccine. - Social history:: Smoking status: Patient denies any tobacco usage or history of. Patient/guardian denies using alcohol. ROS: 20:35 Constitutional: Negative for body aches, chills, fever, poor PO intake. cp 20:35 Cardiovascular: Negative for chest pain, edema, palpitations. cp 20:35 Respiratory: Negative for cough, shortness of breath, wheezing. 20:35 Neuro: Positive for syncope, Negative for altered mental status, weakness. 20:35 All other systems are negative. Exam: 20:40 Constitutional: The patient appears in no acute distress, alert, awake, cp non-diaphoretic, non-toxic, well developed, well nourished. 20:40 Head/Face: Normocephalic, atraumatic. cp 20:40 Eyes: Periorbital structures: appear normal, Pupils: equal, round, and reactive to light and accomodation, Extraocular movements: intact throughout, Sclera: no appreciated abnormality, Lids and lashes: appear normal, bilaterally. 20:40 Chest/axilla: Inspection: normal. 20:40 Cardiovascular: Rate: normal, Rhythm: regular. 20:40 Respiratory: the patient does not display signs of respiratory distress, Respirations: normal, Breath sounds: are clear throughout, no decreased breath sounds, no stridor, no wheezing. Vital Signs: 19:01 BP 90 / 56; Pulse 107; Resp 18; Pulse Ox 97% on R/A; Weight 52.16 kg; Height 5 ft. 9 ld1 in. (175.26 cm); Pain 0/10; 22:07 BP 94 / 66; Pulse 56; Resp 17; Pulse Ox 98% on R/A; sm5 19:01 Body Mass Index 16.98 (52.16 kg, 175.26 cm) ld1 MDM: 19:31 Patient medically screened. cp 07/ 20:24 Order name: Basic Metabolic Panel; Complete Time: 22:10 cp 07/12 20:24 Order name: CBC with Diff; Complete Time: 22:10 cp 07/ 22:10 Interpretation: Normal except: RBC 3.99; HGB 11.5; HCT 35.0. cp 07/12 20:24 Order name: LFT's; Complete Time: 22:10 cp 07/12 20:24 Order name: Magnesium; Complete Time: 22:10 cp 07/12 20:24 Order name: NT PRO-BNP; Complete Time: 22:10 cp 07/12 20:24 Order name: PT-INR; Complete Time: 22:10 cp 07/12 20:24 Order name: Troponin HS; Complete Time: 22:10 cp 07/12 20:24 Order name: XRAY Chest (1 view); Complete Time: 22:10 cp 07/12 20:24 Order name: EKG; Complete Time: 20:24 cp 07/12 20:24 Order name: Cardiac monitoring; Complete Time: 20:55 cp 07/12 20:24 Order name: EKG - Nurse/Tech; Complete Time: 20:46 cp 07/12 20:48 Order name: CT Head C Spine; Complete Time: 22:10 cp 07/12 22:11 Interpretation: Reviewed report. cp 07/ 20:24 Order name: IV Saline Lock; Complete Time: 21:48 cp 07/12 20:24 Order name: Labs collected and sent; Complete Time: 21:48 cp 07/ 20:24 Order name: O2 Per Protocol; Complete Time: 20:55 cp 05/04 20:24 Order name: O2 Sat Monitoring; Complete Time: 20:55 cp Administered Medications: 22:00 Drug: NS 0.9% 1000 ml Route: IV; Rate: 1 bolus; Site: right upper arm; sm5 22:00 Drug: Acetaminophen 650 mg Route: PO; sm5 Point of Care Testing: Blood Glucose: 19:03 Blood Glucose: 159 mg/dL; ld1 Ranges: Critical Glucose Levels:Adult <50 mg/dl or >400 mg/dl <40 mg/dl or >180 mg/dl Disposition Summary: 05/04/22 22:19 Eloped Disposition: after being seen by provider 5 Reason: (see nurse's notes) [facility] Signatures: Dispatcher [employer] Keshawn Adrian PA PA cp Dibbern, Lauren, RN RN ld1 Yaneth Ruggiero RN RN sm5
== END 2022-05-04 22:19 | disposition left against medical advice (07) ==
LOC: ER 19:00
DX: R55 Syncope and collapse (principal); K22.0 Achalasia of cardia; F31.9 Bipolar disorder, unspecified; I10 Essential (primary) hypertension; E11.8 Type 2 diabetes mellitus with unspecified complications; R56.9 Unspecified convulsions
CPT/HCPCS: 36415; 70450; 71045; 72125; 80048; 80076; 83735; 83880; 84484; 85025; 85610; 93005; 99284

== ENCOUNTER 2022-05-07 10:01 | Emergency (ER) | payer OTHER ==
--- NOTE | 2022-05-07 11:13 | ER ---
Nurse's Notes [facility] Name: Tahir Ag Jr Age: 37 yrs Sex: Male : 1985 Arrival Date: 05/07/2022 Time: 10:06 Bed 11 Private MD: Diagnosis: Achalasia of cardia-history;Gastrostomy complication, unspecified;Gastrostomy status;Encounter for attention to gastrostomy Presentation: 05/07 10:09 Chief complaint: Patient states: feeding tube started leaking about 2 hours ago. iw Coronavirus screen: At this time, the client does not indicate any symptoms associated with coronavirus-19. Ebola Screen: Patient negative for fever greater than or equal to 101.5 degrees Fahrenheit, and additional compatible Ebola Virus Disease symptoms Patient denies exposure to infectious person. Patient denies travel to an Ebola-affected area in the 21 days before illness onset. No symptoms or risks identified at this time. Initial Sepsis Screen: Does the patient meet any 2 criteria? Does the patient have a suspected source of infection? No. Patient's initial sepsis screen is negative. Risk Assessment: Do you want to hurt yourself or someone else? Patient reports no desire to harm self or others. Onset of symptoms was May 07, 2022. 10:09 Method Of Arrival: Ambulatory iw 10:09 Acuity: MARTINA 4 iw Historical: - Allergies: 10:11 No Known Allergies; iw - PMHx: 10:11 achalasia; Bipolar disorder; Diabetes - NIDDM; Hernia; Hypertension; Schizophrenia; iw Seizure; - PSHx: 10:11 gastrostomy tube; iw - Family history:: not pertinent. Assessment: 11:01 Reassessment: pt not in room at this time. iw Vital Signs: 10:09 Pulse 89; Resp 16; Temp 97.0; Pulse Ox 100% on R/A; ED Course: 10:06 Patient arrived in ED. mr 10:10 Triage completed. iw 10:10 Arm band placed on. iw 10:12 Keshawn Fish MD is Attending Physician. [facility] 11:00 Xiomara Clarke, MARTINA is Primary Nurse. iw Administered Medications: No medications were administered Outcome: 11:12 Discharge ordered by . [facility] 11:13 Patient left the ED. iw Signatures: Keshawn Fish MD MD cha Rivera, Mary mr Xiomara Clarke, MARTINA RN iw
--- NOTE | 2022-05-07 11:13 | EDPHYS ---
Physician Documentation [facility] Name: Tahir Ag Jr Age: 37 yrs Sex: Male : 1985 Arrival Date: 05/07/2022 Time: 10:06 Bed 11 Private MD: ED Physician Keshawn Fish HPI: 05/07 11:08 This 37 yrs old Black Male presents to ER via Ambulatory with complaints of Feeding daniel tube Problem. 11:08 The patient presents with PEG leaking. Onset: The symptoms/episode began/occurred this daniel morning, today. The symptoms do not radiate. Associated signs and symptoms: none. The symptoms are described as vague. Modifying factors: The symptoms are alleviated by nothing, the symptoms are aggravated by food. Severity of pain: At its worst the pain was very mild in the emergency department the pain has resolved and did so just prior to arrival. The patient has not experienced similar symptoms in the past. Historical: - Allergies: 10:11 No Known Allergies; iw - PMHx: 10:11 achalasia; Bipolar disorder; Diabetes - NIDDM; Hernia; Hypertension; Schizophrenia; iw Seizure; - PSHx: 10:11 gastrostomy tube; iw - Family history:: not pertinent. ROS: 11:08 Constitutional: Negative for fever, chills, and weight loss, Eyes: Negative for injury, daniel pain, redness, and discharge, ENT: Negative for injury, pain, and discharge, Neck: Negative for injury, pain, and swelling, Cardiovascular: Negative for chest pain, palpitations, and edema, Respiratory: Negative for shortness of breath, cough, wheezing, and pleuritic chest pain, Back: Negative for injury and pain, : Negative for injury, bleeding, discharge, and swelling, MS/Extremity: Negative for injury and deformity, Skin: Negative for injury, rash, and discoloration, Neuro: Negative for headache, weakness, numbness, tingling, and seizure, Psych: Negative for depression, anxiety, suicide ideation, homicidal ideation, and hallucinations, Allergy/Immunology: Negative for hives, rash, and allergies, Endocrine: Negative for neck swelling, polydipsia, polyuria, polyphagia, and marked weight changes, Hematologic/Lymphatic: Negative for swollen nodes, abnormal bleeding, and unusual bruising. 11:08 Abdomen/GI: Positive for PEG leaking. Exam: 11:08 Constitutional: This is a well developed, well nourished patient who is awake, alert, daniel and in no acute distress. Head/Face: Normocephalic, atraumatic. Eyes: Pupils equal round and reactive to light, extra-ocular motions intact. Lids and lashes normal. Conjunctiva and sclera are non-icteric and not injected. Cornea within normal limits. Periorbital areas with no swelling, redness, or edema. ENT: Nares patent. No nasal discharge, no septal abnormalities noted. Tympanic membranes are normal and external auditory canals are clear. Oropharynx with no redness, swelling, or masses, exudates, or evidence of obstruction, uvula midline. Mucous membranes moist. Neck: Trachea midline, no thyromegaly or masses palpated, and no cervical lymphadenopathy. Supple, full range of motion without nuchal rigidity, or vertebral point tenderness. No Meningismus. Chest/axilla: Normal chest wall appearance and motion. Nontender with no deformity. No lesions are appreciated. Cardiovascular: Regular rate and rhythm with a normal S1 and S2. No gallops, murmurs, or rubs. Normal PMI, no JVD. No pulse deficits. Respiratory: Lungs have equal breath sounds bilaterally, clear to auscultation and percussion. No rales, rhonchi or wheezes noted. No increased work of breathing, no retractions or nasal flaring. Back: No spinal tenderness. No costovertebral tenderness. Full range of motion. Male : Normal genitalia with no discharge or lesions. Skin: Warm, dry with normal turgor. Normal color with no rashes, no lesions, and no evidence of cellulitis. MS/ Extremity: Pulses equal, no cyanosis. Neurovascular intact. Full, normal range of motion. Neuro: Awake and alert, GCS 15, oriented to person, place, time, and situation. Cranial nerves II-XII grossly intact. Motor strength 5/5 in all extremities. Sensory grossly intact. Cerebellar exam normal. Normal gait. Psych: Awake, alert, with orientation to person, place and time. Behavior, mood, and affect are within normal limits. 11:08 Abdomen/GI: Inspection: abdomen appears normal, Palpation: abdomen is soft and non-tender, Liver: no appreciated palpable abnormalities, Hernia: not appreciated. Vital Signs: 10:09 Pulse 89; Resp 16; Temp 97.0; Pulse Ox 100% on R/A; iw MDM: 10:12 Patient medically screened. daniel 11:10 Differential diagnosis: bowel obstruction, non-specific abd pain, pancreatitis. Data daniel reviewed: vital signs, nurses notes. Data interpreted: night monitor: not applicable for this patient encounter. rate is 89 beats/min, rhythm is regular, Pulse oximetry: on room air is 100 %. Counseling: I had a detailed discussion with the patient and/or guardian regarding: the historical points, exam findings, and any diagnostic results supporting the discharge/admit diagnosis, the need for outpatient follow up, for definitive care, a family practitioner, a general surgeon, a windows systems engineer. Administered Medications: No medications were administered Disposition Summary: 05/07/22 11:12 Discharge Ordered Location: Home daniel Problem: new daniel Symptoms: have improved daniel Condition: Stable daniel Diagnosis - Achalasia of cardia - history daniel - Gastrostomy complication, unspecified daniel - Gastrostomy status daniel - Encounter for attention to gastrostomy daniel Followup: daniel - With: Private Physician - When: Upon discharge from the Emergency Department - Reason: Recheck today's complaints, Continuance of care, Re-evaluation by your physician Discharge Instructions: - Discharge Summary Sheet daniel - Gastrostomy Tube Home Guide, Adult daniel - PEG Tube Home Guide, [id number] daniel - Achalasia daniel Forms: - Medication Reconciliation Form daniel - Thank You Letter daniel - Antibiotic Education daniel - Prescription Opioid Use daniel Signatures: Keshawn Fish MD MD cha Williams, Irene, RN RN iw
[2022-05-07 11:17] VITALS: TEMP 97; O2SAT 100
== END 2022-05-07 11:13 | disposition home or self-care (01) ==
LOC: ER 10:01
DX: K94.29 Other complications of gastrostomy (principal); K22.0 Achalasia of cardia; I10 Essential (primary) hypertension; F20.9 Schizophrenia, unspecified
CPT/HCPCS: 99281

== ENCOUNTER 2022-05-16 16:28 | Emergency (ER) | payer OTHER ==
--- OUTSIDE RECORDS SUMMARY | 2022-05-16 16:34 | XMS REPORT | Continuity of Care Document ---
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 [facility] TROPONIN I 2022-04-26 Albertnckenny [facility] of 22:45:00 [facility] COMP. METABOLIC PANEL ([id number]) 2022-04-26 Charlotte Miranda [facility] of 22:45:00 [facility] CBC WITH DIFF 2022-04-26 [facility] 22:45:00 [facility] N-TERMINAL PRO-BNP 2022-04-26 [facility] 22:45:00 [facility] HB ECG ROUTINE & RHYTHM STRIP 2022-04-26 Charlotte Miranda [facility] of 22:15:20 [facility] HB ECG ROUTINE & RHYTHM STRIP 2022-04-26 Charlotte Miranda [facility] of 22:15:20 [facility] HB ECG ROUTINE & RHYTHM STRIP 2022-04-26 Charlotte Miranda [facility] of 22:15:20 [facility] XR CHEST 1 VW 2022-04-26 [facility] 21:18:17 [facility] XR CHEST 1 VW 2022-04-26 Albertnckenny [facility] of 21:18:17 [facility] XR CHEST 1 VW 2022-04-26 [facility] of 21:18:17 [facility] CONSENT/REFUSAL FOR DIAGNOSIS AND 2022-04-26 [facility] 20:55:28 Unassigned, No [place] [facility] CONSENT/REFUSAL FOR DIAGNOSIS AND 2022-04-26 [facility] 20:55:28 Unassigned, No [facility] Name Branch CONSENT/REFUSAL FOR DIAGNOSIS AND 2022-04-26 Doctor [facility] 20:55:28 Unassigned, No [facility] SURGICAL PATHOLOGY EXAM 2022-03-12 Negrito Simeon [facility] ty of 15:50:00 [facility] INTUBATION 2022-03-12 [facility] 14:53:00 Dee Dee [facility] INGUINAL HERNIORRHAPHY 2022-03-12 Negrito Simeon [facility] y of 14:34:00 [facility] OPEN APPENDECTOMY 2022-03-12 Negrito Simeon [place] of 14:34:00 [facility] DAY SURGERY - ADC 2022-03-12 [facility] of 05:01:00 Unassigned, No [facility] CONSENT/REFUSAL FOR DIAGNOSIS AND 2022-03-09 [facility] 20:29:26 Unassigned, No [facility] ASSIGNMENT OF BENEFITS 2022-03-09 [facility] y of 20:29:06 Unassigned, No [facility] Branch COVID-19 (ID NOW RAPID TESTING) 2022-03-09 Negrito Simeon of 20:27:00 [facility] LAB ONLY COVID INTERPRETATION 2022-03-09 Negrito Simeon Un iversity of 20:27:00 [facility] NOTICE OF PRIVACY PRACTICES 2022-03-09 Doctor Univ ersity of 20:22:10 Unassigned, No [facility] Branch CONSENT/REFUSAL FOR DIAGNOSIS AND 2022-03-09 Doctor University of TREATMENT 20:21:53 Unassigned, No [place] [facility] ASSIGNMENT OF BENEFITS 2022-03-09 Doctor Universit y of 20:21:32 Unassigned, No [place] [facility] DISCLOSURE AND CONSENT, MEDICAL 2022-03-05 [facility] of AND SURGICAL PROCEDURES 05:01:00 Unassigned, No [facility] dical Name Branch INTUBATION 2022-02-25 Puma Sandy [place] of 17:01:00 [facility] HB ABO GROUPING 2022-02-25 Stephanie Galvez [place] of 15:52:00 [facility] CONSENT/REFUSAL FOR DIAGNOSIS AND 2022-02-25 [facility] TREATMENT 13:23:24 Unassigned, No [facility] Name Branch COVID-19 (ID NOW RAPID TESTING) 2022-02-25 Nathanael Whitlock of 13:18:00 [facility] LAB ONLY COVID INTERPRETATION 2022-02-25 Nathanael Whitlock iversity of 13:18:00 [facility] ASSIGNMENT OF BENEFITS 2022-02-25 [facility] of 13:04:20 Unassigned, No [facility] Name [place] DAY SURGERY - UEHLING 2022-02-25 [facility] ty of 05:01:00 Unassigned, No [facility] REFERRAL- REQUEST/RESPONSE 2022-02-18 Doctor Unive rsity of 05:01:00 Unassigned, No [facility] Name [place] XR CHEST 2 VW 2022-02-04 Liv Boucher [place] of 20:28:00 [facility] CBC WITH DIFF 2022-02-04 Liv Boucher [place] of 20:11:00 [facility] BASIC METABOLIC PANEL (NA, K, CL, 2022-02-04 Liv Boucher [place] of CO2, GLUCOSE, BUN, CREATININE, CA) 20:11:00 [facility] HEPATIC FUNCTION PANEL ([id number]) 2022-02-04 Liv Boucher [facility]iversity of (ALB,T.PRO,BILI 20:11:00 [facility] T,BU/BC,ALT,AST,ALK PHOS) Branch PREALBUMIN, SERUM 2022-02-04 Liv Boucher [facility] 20:11:00 [facility] Plan of Care Planned Activity Planned Date [...] Facility Department ID 2022-01-18 Outpatient [facility] [id number] [place] 04:45:38 [id number] [facility] 2020-10-06 Inpatient [facility] [id number] [facility] 00:50:00 [id number] [facility] 2022-05-05 2022-05-05 Transition SHARON Araujo 1.2.840.114 [id number] [facility] 00:00:00 00:00:00 of Care Henrietta WILSON 350.1.13.10 ity of [place] 4.2.7.2.[address] [facility] [id number] [address] 2022-04-26 2022-05-04 Inpatient X AMELIE ALMEIDA [facility] [id number] Univers 16:01:00 12:18:00 AMELIE ALMEIDA ity of [facility] 2022-04-26 2022-05-04 [facility] 1.2.840.11 [id number] Univers 16:01:00 12:18:00 Encounter Phoebejessica Keith [facility] 350.1. 13.10 ity of Brian Wesley 4.2.7.2.686 [facility] [id number] [address] ([facility]) 2022-04-28 2022-04-28 Anesthesia Gayle Lino 1.2.840.1 1 [id number] Univers 09:38:00 10:28:00 Event Radu Schroeder 92786.1.1 ity of 3.104.2.7 [place] .3.079857 Medica l .8 Branch 2022-04-28 2022-04-28 Surgery Eber [facility] 1.2.840.114 [id number] Univers 09:30:00 10:01:00 Derrell Watters SPECIALTY 350.1.13.10 ity of CARE 4.2.7.2.686 [facility] AT [id number] [place] stephanie Miller [facility] 2022-04-27 2022-04-27 Anesthesia Fawn Johnson 1.2.840.1 [id number] Univers 12:29:50 12:29:50 Event Sabrina Sanchez 16319.1.1 ity of 3.104.2.7 [place] .3.302137 Medica l .8 Branch 2022-04-26 2022-04-26 Travel 1.2.840.1 1.2.668.419 [id number] Univers 00:00:00 00:00:00 37729.1.1 350.1.13.10 ity of 3.104.2.7 [place].3.698 [place] .3.750[place] 084.8 Medica l .8 [place] 2022-04-05 2022-04-05 Telephone Mitchell, 1.2.840.1 [id number] Univers 00:00:00 00:00:00 Mitzy 60567.1.1 ity of 3.104.2.7 [place] .3.063388 Medica l .8 [place] 2022-04-02 2022-04-02 Office Walker, 1.2.840.0 [id number] Univers 11:45:00 11:45:00 Visit Negrito 35803.1.1 ity of [place] 3.104.2.7 [place] .3.046616 Medica l .8 [place] 2022-04-02 2022-04-02 Travel 1.2.840.1 1.2.679.848 [id number] Univers 00:00:00 00:00:00 89426.1.1 350.1.13.10 ity of 3.104.2.7 4.[place].7.3.698 [place] .3.945748 084.8 Medica l .8 [place] 2022-03-24 2022-03-24 Telephone Whitlock, Gal 1.2.840.4 [id number] Univers 00:00:00 00:00:00 18915.1.1 ity of 3.104.2.7 [place] .3.255843 Medica l .8 Branch 2022-03-19 2022-03-19 Telephone Nathanael Whitlock 1.2.840.3 [id number] Univers 00:00:00 00:00:00 20261.1.1 ity of 3.104.2.7 [place] .3.729965 Medica l .8 [place] 2022-03-12 2022-03-12 [facility], 1.2.840.9 [id number] Univers 08:13:00 16:20:00 Encounter Negrito 57741.1.1 it y of [place] 3.104.2.7 [place] .3.520330 Medica l .8 [place] 2022-03-12 2022-03-12 Anesthesia Carley Fregoso 1.2.840.1 [id number] Univers 09:44:00 12:14:00 Event Richard Granados 54051.1.1 ity of 3.104.2.7 [place] .3.849773 Medica l .8 [place] 2022-03-12 2022-03-12 Surgery [place], 1.2.840.2 [id number] Univers 09:54:00 12:12:00 Negrito 66303.1.1 ity of [place] 3.104.2.7 [place] .3.420160 Medica l .8 [place] 2022-03-09 2022-03-09 Laboratory Negrito Simeon 1.2.840.6 [id number] Univers 10:15:00 10:30:00 Only Only, Adc Test 25299.1.1 ity of 3.104.2.7 [place] .3.449986 Medica l .8 [place] 2022-03-09 2022-03-09 Travel 1.2.840.1 1.2.954.239 [id number] Univers 00:00:00 00:00:00 48115.1.1 350.1.13.10 ity of 3.104.2.7 [place]7.3.698 [place] .3.262015 084.8 Medica l .8 [place] 2022-03-05 2022-03-05 Office Walker, 1.2.840.6 [id number] Univers 10:15:00 12:01:28 Visit Negrito 54139.1.1 ity of [place] 3.104.2.7 [place] .3.733107 Medica l .8 [place] 2022-02-25 2022-02-25 Hospital [facility], Gal 1.2.840.5 [id number] Univers 08:04:00 13:21:00 Encounter 69985.1.1 it y of 3.104.2.7 [place] .3.750609 Medica l .8 [place] 2022-02-25 2022-02-25 Surgery [facility], Gal 1.2.840.1 [id number] Univers 09:35:00 12:45:00 79115.1.1 ity of 3.104.2.7 [place] .3.895224 Medica l .8 [place] 2022-02-25 2022-02-25 Anesthesia Arita [place] 1.2.840.7 [id number] Univers 11:53:00 12:33:00 Event Francis Wong 09038.1.1 ity of 3.104.2.7 [place] .3.514388 Medica l .8 [place] 2022-02-24 2022-02-24 Travel 1.2.840.1 1.2.038.348 [id number] Univers 00:00:00 00:00:00 84613.1.1 350.1.13.10 ity of 3.104.2.7 4.[place].7.3.698 [place] .3.342269 084.8 Medica l .8 [place] 2022-02-18 2022-02-18 Orders Doctor 1.2.840.7 [id number] Univers 00:00:00 00:00:00 Only Unassigned, 81073.1.1 ity of [place] 3.104.2.7 [place] .3.078174 Medica l .8 Branch 2022-02-15 2022-02-15 Telephone [place], 1.2.840.4 [id number] Univers 00:00:00 00:00:00 Stephanie Rose 82844.1.1 it y of 3.104.2.7 [place] .3.664899 Medica l .8 Branch 2022-02-09 2022-02-09 Telephone [place], 1.2.840.7 [id number] Univers 00:00:00 00:00:00 Stephanie Rose 92283.1.1 it y of 3.104.2.7 [place] .3.279892 Medica l .8 Branch 2022-02-08 2022-02-08 [facility], 1.2.840.5 [id number] Univers 00:00:00 00:00:00 Management Stephanie Rose 91311.1.1 ity of 3.104.2.7 [place] .3.703413 Medica l .8 Branch 2022-02-04 2022-02-04 Hospital Kamlesh, Gal 1.2.840.9 [id number] Univers 15:17:56 23:59:00 Encounter 24261.1.1 it y of 3.104.2.7 [place] .3.182029 Medica l .8 Branch 2022-02-04 2022-02-04 Visualizer Kamlesh [place] 1.2.840.9 [id number] Univers 15:30:00 15:47:42 Visit [facility] 33671.1.1 ity of 3.104.2.7 [place] .3.550267 Medica l .8 Branch 2022-02-04 2022-02-04 Office Kamlesh [place] 1.2.840.4 [id number] Univers 13:30:00 14:38:59 Visit 10356.1.1 ity of 3.104.2.7 [place] .3.619498 Medica l .8 Branch 2022-02-04 2022-02-04 Travel 1.2.840.1 1.2.498.701 [id number] Univers 00:00:00 00:00:00 55542.1.1 350.1.13.10 ity of 3.104.2.7 4.[place]7.3.698 [place] .3.439236 084.8 Medica l .8 Branch 2021-05-25 2021-05-26 Emergency Claudia, Janene [facility] 1.2.840.114 [id number] 18:28:00 00:07:00 Misa Carley 350.1.13.10 [place] 4.2.7.2.686 [place] [id number] 2020-12-19 2020-12-19 Orders Doctor NEGRITO 1.2.840.114 [id number] 00:00:00 00:00:00 Only Unassigned, NAMRATA 350.1.13.10 [place] [facility] 4.2.7.2.686 [id number] 2020-11-28 2020-11-28 Patient Sharon Bunn 1.2.840.114 [id number] 00:00:00 00:00:00 Outreach Micki Wilson 350.1.13.10 [place] 4.2.7.2.686 [id number] 2020-11-27 2020-11-27 Telephone JeffAngie coleman 1.2.905.261 [id number] 00:00:00 00:00:00 Gianni Teresa 350.1.13.10 [facility] 4.2.7.2.686 [id number] 2020-10-06 2020-10-06 Outpatient BEE Garcia [id number] [facility] 23:33:00 23:33:00 [facility] [id number] [facility] Results Test Description Test Time Test Comments Results Result Comments Source BASIC METABOLIC PANEL (NA, K, CL, CO2, GLUCOSE, BUN, 2022-04 10:41:04 CREATININE, CA) Test Item Value Reference Range Interpretation Comme nts NA (test code = 7882794995) 141 mmol/L 135-145 K (test code = 9229225948) 4.1 mmol/L 3.5-5 CL (test code = 0265837960) 113 mmol/L 98-108 H CO2 TOTAL (test code = 6176691356) 26 mmol/L 23-31 AGAP (test code = 1991684195) 2-16 BUN (test code = 2608116460) 2 mg/dL 7-23 L GLUCOSE (test code = 8665860477) 77 mg/dL 70-110 CREATININE (test code = 0.43 mg/dL 0.6-1.25 L 0973721633) CALCIUM (test code = 7361293908) 7.5 mg/dL 8.6-10.6 L eGFR (test code = 8549828299) mL/min/1.73m2 LU (test code = LU) Association of Glomerular Filtration Rate (GFR) and Staging of Kidney Disease* + +-------- + ------+| GFR (mL/min/1.73 m2) ?| With Kidney Damage ?| ?Without Kidney Damage+ +-- + +| ?>90 ?| ?Stage one ?| ? Normal ?+ +------- + -------+| ?60-89 ?| ?Stage two ?| ? Decreased GFR ? + +-------- + ------+| ?30-59 ?| ?Stage three ?| ? Stage three ? + +-------- + ------+| ?15-29 ?| ?Stage four ? | ? Stage four ?+ +------- + -------+| ?<15 (or dialysis) ? ?| ?Stage five ? | ? Stage five ?+ +------- + -------+ *Each stage assumes the associated GFR level has been in effect for at least three months. ?Stages 1 to 5, with or without kidney disease, indicate chronic kidney disease. Notes: Determination of stages one and two (with eGFR >59mL/min/1.73 m2) requires estimation of kidney damage for at least three months as defined by structural or functional abnormalities of the kidney, manifested by either:Pathological abnormalities or Markers of kidney damage (including abnormalities in the composition of the blood or urine or abnormalities in imaging tests). Lab Interpretation (test code = Abnormal 29173-6) [facility] METABOLIC PANEL (NA, K, CL, CO2, GLUCOSE, BUN, CREATININE, CA)2022-04-29 10:41:04 Test Item Value Reference Range Interpretation Comments NA (test code = 141 mmol/L 135-145 3054011052) K (test code = 4.1 mmol/L 3.5-5.0 8507704072) CL (test code = 113 mmol/L 98-108 H 7242946718) CO2 TOTAL (test code = 26 mmol/L 23-31 9788682822) AGAP (test code = 2-16 4249988496) BUN (test code = 2 mg/dL 7-23 L 1244327111) GLUCOSE (test code = 77 mg/dL 70-110 5911919016) CREATININE (test code = 0.43 mg/dL 0.60-1.25 L 0149713934) CALCIUM (test code = 7.5 mg/dL 8.6-10.6 L 7126662320) eGFR (test code = mL/min/1.73m2 3611041677) LU (test code = LU) Association of Glomerular Filtration Rate (GFR) and Staging of Kidney Disease* + --+ --+ ------+| GFR (mL/min/1.73 m2) ?| With Kidney Damage ?| ?Without Kidney Damage+ --------+ --------+ +| ?>90 ?| ?Stage one ?| ? Normal ?+ ---+ ---+ -------+| ?60-89 ?| ?Stage two ?| ? Decreased GFR ? + --+ --+ ------+| ?30-59 ?| ?Stage three ?| ? Stage three ? + --+ --+ ------+| ?15-29 ?| ?Stage four ? | ? Stage four ?+ ---+ ---+ -------+| ?<15 (or dialysis) ? ?| ?Stage five ? | ? Stage five ?+ ---+ ---+ -------+ *Each stage assumes the associated GFR level has been in effect for at least three months. ?Stages 1 to 5, with or without kidney disease, indicate chronic kidney disease. Notes: Determination of stages one and two (with eGFR >59mL/min/1.73 m2) requires estimation of kidney damage for at least three months as defined by structural or functional abnormalities of the kidney, manifested by either:Pathological abnormalities or Markers of kidney damage (including abnormalities in the composition of the blood or urine or abnormalities in imaging tests). Lab Interpretation Abnormal (test code = 28261-4) [facility]20 Test Item Value Reference Range Interpretation Comments MAGNESIUM (test code = 9337446003) 1.7 mg/dL 1.7-2.4 Lab Interpretation (test code = Normal 93216-5) [facility] 19:02:20 Test Item Value Reference Range Interpretation Comments MAGNESIUM (test code = 5652219594) 1.7 mg/dL 1.7-2.4 Lab Interpretation (test code = Normal 19065-1) [facility] METABOLIC PANEL (NA, K, CL, CO2, GLUCOSE, BUN, CREATININE, CA)2022-04-28 17:52:13 Test Item Value Reference Range Interpretation Comments NA (test code = 142 mmol/L 135-145 5149615409) K (test code = 2.6 mmol/L 3.5-5 LL 3321682520) CL (test code = 109 mmol/L 98-108 H 4227572232) CO2 TOTAL (test code = 26 mmol/L 23-31 9019680847) AGAP (test code = 2-16 8574751556) BUN (test code = 3 mg/dL 7-23 L 0552414462) GLUCOSE (test code = 95 mg/dL 70-110 3909710193) CREATININE (test code = 0.57 mg/dL 0.6-1.25 L 6792140743) CALCIUM (test code = 7.6 mg/dL 8.6-10.6 L 6965290406) eGFR (test code = mL/min/1.73m2 5294110062) LU (test code = LU) Association of Glomerular Filtration Rate (GFR) and Staging of Kidney Disease* + --+ --+ ------+| GFR (mL/min/1.73 m2) ?| With Kidney Damage ?| ?Without Kidney Damage+ --------+ --------+ +| ?>90 ?| ?Stage one ?| ? Normal ?+ ---+ ---+ -------+| ?60-89 ?| ?Stage two ?| ? Decreased GFR ? + --+ --+ ------+| ?30-59 ?| ?Stage three ?| ? Stage three ? + --+ --+ ------+| ?15-29 ?| ?Stage four ? | ? Stage four ?+ ---+ ---+ -------+| ?<15 (or dialysis) ? ?| ?Stage five ? | ? Stage five ?+ ---+ ---+ -------+ *Each stage assumes the associated GFR level has been in effect for at least three months. ?Stages 1 to 5, with or without kidney disease, indicate chronic kidney disease. Notes: Determination of stages one and two (with eGFR >59mL/min/1.73 m2) requires estimation of kidney damage for at least three months as defined by structural or functional abnormalities of the kidney, manifested by either:Pathological abnormalities or Markers of kidney damage (including abnormalities in the composition of the blood or urine or abnormalities in imaging tests). Lab Interpretation Abnormal (test code = 86355-5) [facility] METABOLIC PANEL (NA, K, CL, CO2, GLUCOSE, BUN, CREATININE, CA)2022-04-28 17:52:13 Test Item Value Reference Range Interpretation Comments NA (test code = 142 mmol/L 135-145 5430814938) K (test code = 2.6 mmol/L 3.5-5.0 LL 7110445003) CL (test code = 109 mmol/L 98-108 H 0468794474) CO2 TOTAL (test code = 26 mmol/L 23-31 2376797240) AGAP (test code = 2-16 2612526022) BUN (test code = 3 mg/dL 7-23 L 9373903449) GLUCOSE (test code = 95 mg/dL 70-110 5241587978) CREATININE (test code = 0.57 mg/dL 0.60-1.25 L 0152451219) CALCIUM (test code = 7.6 mg/dL 8.6-10.6 L 9747094336) eGFR (test code = mL/min/1.73m2 6933296337) LU (test code = LU) Association of Glomerular Filtration Rate (GFR) and Staging of Kidney Disease* + --+ --+ ------+| GFR (mL/min/1.73 m2) ?| With Kidney Damage ?| ?Without Kidney Damage+ --------+ --------+ +| ?>90 ?| ?Stage one ?| ? Normal ?+ ---+ ---+ -------+| ?60-89 ?| ?Stage two ?| ? Decreased GFR ? + --+ --+ ------+| ?30-59 ?| ?Stage three ?| ? Stage three ? + --+ --+ ------+| ?15-29 ?| ?Stage four ? | ? Stage four ?+ ---+ ---+ -------+| ?<15 (or dialysis) ? ?| ?Stage five ? | ? Stage five ?+ ---+ ---+ -------+ *Each stage assumes the associated GFR level has been in effect for at least three months. ?Stages 1 to 5, with or without kidney disease, indicate chronic kidney disease. Notes: Determination of stages one and two (with eGFR >59mL/min/1.73 m2) requires estimation of kidney damage for at least three months as defined by structural or functional abnormalities of the kidney, manifested by either:Pathological abnormalities or Markers of kidney damage (including abnormalities in the composition of the blood or urine or abnormalities in imaging tests). Lab Interpretation Abnormal (test code = 44529-6) [facility] METABOLIC PANEL (NA, K, CL, CO2, GLUCOSE, BUN, CREATININE, CA)2022-04-28 17:52:13 Test Item Value Reference Range Interpretation Comments NA (test code = 142 mmol/L 135-145 [id number]) K (test code = 2.6 mmol/L 3.5-5.0 LL [id number]) CL (test code = 109 mmol/L 98-108 H [id number]) CO2 TOTAL (test code = 26 mmol/L 23-31 [id number]) AGAP (test code = 2-16 [id number]) BUN (test code = 3 mg/dL 7-23 L [id number]) GLUCOSE (test code = 95 mg/dL 70-110 [id number]) CREATININE (test code = 0.57 mg/dL 0.60-1.25 L [id number]) CALCIUM (test code = 7.6 mg/dL 8.6-10.6 L [id number]) eGFR (test code = mL/min/1.73m2 3413578052) LU (test code = LU) Association of Glomerular Filtration Rate (GFR) and Staging of Kidney Disease* + --+ --+ ------+| GFR (mL/min/1.73 m2) ?| With Kidney Damage ?| ?Without Kidney Damage+ --------+ --------+ +| ?>90 ?| ?Stage one ?| ? Normal ?+ ---+ ---+ -------+| ?60-89 ?| ?Stage two ?| ? Decreased GFR ? + --+ --+ ------+| ?30-59 ?| ?Stage three ?| ? Stage three ? + --+ --+ ------+| ?15-29 ?| ?Stage four ? | ? Stage four ?+ ---+ ---+ -------+| ?<15 (or dialysis) ? ?| ?Stage five ? | ? Stage five ?+ ---+ ---+ -------+ *Each stage assumes the associated GFR level has been in effect for at least three months. ?Stages 1 to 5, with or without kidney disease, indicate chronic kidney disease. Notes: Determination of stages one and two (with eGFR >59mL/min/1.73 m2) requires estimation of kidney damage for at least three months as defined by structural or functional abnormalities of the kidney, manifested by either:Pathological abnormalities or Markers of kidney damage (including abnormalities in the composition of the blood or urine or abnormalities in imaging tests). Lab Interpretation Abnormal (test code = 90444-3) [facility] WITHOUT [id number] 17:16:02 Test Item Value Reference Range Interpretation Comments WBC (test code = 6690-2) See_Comment [A utomated message] The system [employer] generated this result transmit annette reference range : 4.20 - 10.70 10*3/?L. The reference range was not used to interpret this result as normal/abnormal . RBC (test code = 789-8) See_Comment L [Au tomated message] The system [employer] generated this result transmit annette reference range : 4.26 - 5.52 10* 6/?L. The reference r alisson was not used to interpret this result as normal/abnormal . HGB (test code = 718-7) 11.0 g/dL 12.2-16.4 L HCT (test code = 4544-3) 33.9 % 38.4-49.3 L MCH (test code = 785-6) 28.9 pg 26.1-32.7 MCV (test code = 787-2) 89.0 fL 81.7-95.6 MCHC (test code = 786-4) 32.4 g/dL 31.2-35 PLT (test code = 777-3) See_Comment [Au tomated message] The system [employer] generated this result transmit annette reference range : 150 - 328 10*3/?L. The reference range was not used to interpret this result as normal/abnormal . MPV (test code = 10.7 fL 9.8-13 12318-8) RDW-CV (test code = 14.9 % 12.1-15.4 788-0) RDW-SD (test code = 48.9 fL 38.5-51.6 45223-1) NRBC x10^3 (test code = See_Comment [Au tomated message] [id number]) The system [employer] generated this result transmit annette reference range : 10*3/?L. The reference range was not used to interpret this result as normal/abnormal . NRBC/100 WBC (test code See_Comment [Au tomated message] = 7653642754) The system [employer] generated this result transmit annette reference range : 0.0 - 10.0 /100 WBC s. The reference r alisson was not used to interpret this result as normal/abnormal . IPF % (test code = 0384575601) Lab Interpretation (test Abnormal code = 67660-4) [facility] WITHOUT [id number] 17:16:02 Test Item Value Reference Range Interpretation Comments WBC (test code = 6690-2) See_Comment [A utomated message] The system [employer] generated this result transmit annette reference range : 4.20 - 10.70 10*3/?L. The reference range was not used to interpret this result as normal/abnormal . RBC (test code = 789-8) See_Comment L [Au tomated message] The system [employer] generated this result transmit annette reference range : 4.26 - 5.52 10* 6/?L. The reference r alisson was not used to interpret this result as normal/abnormal . HGB (test code = 718-7) 11.0 g/dL 12.2-16.4 L HCT (test code = 4544-3) 33.9 % 38.4-49.3 L MCH (test code = 785-6) 28.9 pg 26.1-32.7 MCV (test code = 787-2) 89.0 fL 81.7-95.6 MCHC (test code = 786-4) 32.4 g/dL 31.2-35.0 PLT (test code = 777-3) See_Comment [Au tomated message] The system [employer] generated this result transmit annette reference range : 150 - 328 10*3/?L. The reference range was not used to interpret this result as normal/abnormal . MPV (test code = 10.7 fL 9.8-13.0 88755-2) RDW-CV (test code = 14.9 % 12.1-15.4 788-0) RDW-SD (test code = 48.9 fL 38.5-51.6 21269-9) NRBC x10^3 (test code = <0.01 See_Comment [Au tomated message] [id number]) The system [employer] generated this result transmit annette reference range : 10*3/?L. The reference range was not used to interpret this result as normal/abnormal . NRBC/100 WBC (test code See_Comment [Au tomated message] = 7054275710) The system [employer] generated this result transmit annette reference range : 0.0 - 10.0 /100 WBC s. The reference r alisson was not used to interpret this result as normal/abnormal . IPF % (test code = 0718917044) Lab Interpretation (test Abnormal code = 96819-0) [facility] WITHOUT [id number] 17:16:02 Test Item Value Reference Range Interpretation Comments WBC (test code = 6690-2) See_Comment [A utomated message] The system [employer] generated this result transmit annette reference range : 4.20 - 10.70 10*3/?L. The reference range was not used to interpret this result as normal/abnormal . RBC (test code = 789-8) See_Comment L [Au tomated message] The system [employer] generated this result transmit annette reference range : 4.26 - 5.52 10* 6/?L. The reference r alisson was not used to interpret this result as normal/abnormal . HGB (test code = 718-7) 11.0 g/dL 12.2-16.4 L HCT (test code = 4544-3) 33.9 % 38.4-49.3 L MCH (test code = 785-6) 28.9 pg 26.1-32.7 MCV (test code = 787-2) 89.0 fL 81.7-95.6 MCHC (test code = 786-4) 32.4 g/dL 31.2-35.0 PLT (test code = 777-3) See_Comment [Au tomated message] The system [employer] generated this result transmit annette reference range : 150 - 328 10*3/?L. The reference range was not used to interpret this result as normal/abnormal . MPV (test code = 10.7 fL 9.8-13.0 37151-6) RDW-CV (test code = 14.9 % 12.1-15.4 788-0) RDW-SD (test code = 48.9 fL 38.5-51.6 93246-1) NRBC x10^3 (test code = <0.01 See_Comment [Au tomated message] 4540443657) The system [employer] generated this result transmit annette reference range : 10*3/?L. The reference range was not used to interpret this result as normal/abnormal . NRBC/100 WBC (test code See_Comment [Au tomated message] = 6961654813) The system [facility] generated this result transmit annette reference range : 0.0 - 10.0 /100 WBC s. The reference r alisson was not used to interpret this result as normal/abnormal . IPF % (test code = 9454110627) Lab Interpretation (test Abnormal code = 53100-4) [facility] [id number] 22:31:26 Test Item Value Reference Range Interpretation Comments K (test code = 4777579102) 3.3 mmol/L 3.5-5 L Lab Interpretation (test code = Abnormal 63317-3) [facility] METABOLIC PANEL (NA, K, CL, CO2, GLUCOSE, BUN, CREATININE, CA)2022-04-27 22:31:26 Test Item Value Reference Range Interpretation Comments NA (test code = 144 mmol/L 135-145 2167093103) K (test code = 3.3 mmol/L 3.5-5 L 1587516968) CL (test code = 112 mmol/L 98-108 H 7389281573) CO2 TOTAL (test code = 27 mmol/L 23-31 0623406318) AGAP (test code = 2-16 8390717277) BUN (test code = 5 mg/dL 7-23 L 0249178309) GLUCOSE (test code = 118 mg/dL 70-110 H 2889052847) CREATININE (test code = 0.63 mg/dL 0.6-1.25 3663857367) CALCIUM (test code = 7.6 mg/dL 8.6-10.6 L 0650493368) eGFR (test code = mL/min/1.73m2 2036514025) LU (test code = LU) Association of Glomerular Filtration Rate (GFR) and Staging of Kidney Disease* + --+ --+ ------+| GFR (mL/min/1.73 m2) ?| With Kidney Damage ?| ?Without Kidney Damage+ --------+ --------+ +| ?>90 ?| ?Stage one ?| ? Normal ?+ ---+ ---+ -------+| ?60-89 ?| ?Stage two ?| ? Decreased GFR ? + --+ --+ ------+| ?30-59 ?| ?Stage three ?| ? Stage three ? + --+ --+ ------+| ?15-29 ?| ?Stage four ? | ? Stage four ?+ ---+ ---+ -------+| ?<15 (or dialysis) ? ?| ?Stage five ? | ? Stage five ?+ ---+ ---+ -------+ *Each stage assumes the associated GFR level has been in effect for at least three months. ?Stages 1 to 5, with or without kidney disease, indicate chronic kidney disease. Notes: Determination of stages one and two (with eGFR >59mL/min/1.73 m2) requires estimation of kidney damage for at least three months as defined by structural or functional abnormalities of the kidney, manifested by either:Pathological abnormalities or Markers of kidney damage (including abnormalities in the composition of the blood or urine or abnormalities in imaging tests). Lab Interpretation Abnormal (test code = 38947-4) [facility] [id number] 22:31:26 Test Item Value Reference Range Interpretation Comments K (test code = 7127234761) 3.3 mmol/L 3.5-5.0 L Lab Interpretation (test code = Abnormal 18500-7) [facility] [id number] 22:31:26 Test Item Value Reference Range Interpretation Comments K (test code = 4391118061) 3.3 mmol/L 3.5-5.0 L Lab Interpretation (test code = Abnormal 25995-6) [facility] METABOLIC PANEL (NA, K, CL, CO2, GLUCOSE, BUN, CREATININE, CA)2022-04-27 22:31:26 Test Item Value Reference Range Interpretation Comments NA (test code = 144 mmol/L 135-145 7548054755) K (test code = 3.3 mmol/L 3.5-5.0 L 9067700505) CL (test code = 112 mmol/L 98-108 H 1518354233) CO2 TOTAL (test code = 27 mmol/L 23-31 7787516151) AGAP (test code = 2-16 5017597809) BUN (test code = 5 mg/dL 7-23 L 5639908451) GLUCOSE (test code = 118 mg/dL 70-110 H 4532958653) CREATININE (test code = 0.63 mg/dL 0.60-1.25 1550042712) CALCIUM (test code = 7.6 mg/dL 8.6-10.6 L 9970809952) eGFR (test code = mL/min/1.73m2 0267122541) LU (test code = LU) Association of Glomerular Filtration Rate (GFR) and Staging of Kidney Disease* + --+ --+ ------+| GFR (mL/min/1.73 m2) ?| With Kidney Damage ?| ?Without Kidney Damage+ --------+ --------+ +| ?>90 ?| ?Stage one ?| ? Normal ?+ ---+ ---+ -------+| ?60-89 ?| ?Stage two ?| ? Decreased GFR ? + --+ --+ ------+| ?30-59 ?| ?Stage three ?| ? Stage three ? + --+ --+ ------+| ?15-29 ?| ?Stage four ? | ? Stage four ?+ ---+ ---+ -------+| ?<15 (or dialysis) ? ?| ?Stage five ? | ? Stage five ?+ ---+ ---+ -------+ *Each stage assumes the associated GFR level has been in effect for at least three months. ?Stages 1 to 5, with or without kidney disease, indicate chronic kidney disease. Notes: Determination of stages one and two (with eGFR >59mL/min/1.73 m2) requires estimation of kidney damage for at least three months as defined by structural or functional abnormalities of the kidney, manifested by either:Pathological abnormalities or Markers of kidney damage (including abnormalities in the composition of the blood or urine or abnormalities in imaging tests). Lab Interpretation Abnormal (test code = 60411-7) [facility]2022-07-05 21:22:49 Test Item Value Reference Range Interpretation Comments MAGNESIUM (test code = 2864876991) 2.1 mg/dL 1.7-2.4 Lab Interpretation (test code = Normal 85588-5) [facility]2022-07-05 21:22:49 Test Item Value Reference Range Interpretation Comments MAGNESIUM (test code = 2855842751) 2.1 mg/dL 1.7-2.4 Lab Interpretation (test code = Normal 38151-3) [facility]2022-07-05 21:22:49 Test Item Value Reference Range Interpretation Comments MAGNESIUM (test code = 1249610516) 2.1 mg/dL 1.7-2.4 Lab Interpretation (test code = Normal 97369-4) [facility]NA, K, CL, CO2, GLUCOSE, BUN, CREATININE, CA)2022-04-27 15:50:29 Test Item Value Reference Range Interpretation Comments NA (test code = 143 mmol/L 135-145 7725843198) K (test code = 2.4 mmol/L 3.5-5 LL 8315422323) CL (test code = 110 mmol/L 98-108 H 8055227257) CO2 TOTAL (test code = 28 mmol/L 23-31 4691656333) AGAP (test code = 2-16 3533534883) BUN (test code = 4 mg/dL 7-23 L 7021336877) GLUCOSE (test code = 56 mg/dL 70-110 L 9939912040) CREATININE (test code = 0.65 mg/dL 0.6-1.25 9560169188) CALCIUM (test code = 7.7 mg/dL 8.6-10.6 L 8931138015) eGFR (test code = mL/min/1.73m2 9394601930) LU (test code = LU) Association of Glomerular Filtration Rate (GFR) and Staging of Kidney Disease* + --+ --+ ------+| GFR (mL/min/1.73 m2) ?| With Kidney Damage ?| ?Without Kidney Damage+ --------+ --------+ +| ?>90 ?| ?Stage one ?| ? Normal ?+ ---+ ---+ -------+| ?60-89 ?| ?Stage two ?| ? Decreased GFR ? + --+ --+ ------+| ?30-59 ?| ?Stage three ?| ? Stage three ? + --+ --+ ------+| ?15-29 ?| ?Stage four ? | ? Stage four ?+ ---+ ---+ -------+| ?<15 (or dialysis) ? ?| ?Stage five ? | ? Stage five ?+ ---+ ---+ -------+ *Each stage assumes the associated GFR level has been in effect for at least three months. ?Stages 1 to 5, with or without kidney disease, indicate chronic kidney disease. Notes: Determination of stages one and two (with eGFR >59mL/min/1.73 m2) requires estimation of kidney damage for at least three months as defined by structural or functional abnormalities of the kidney, manifested by either:Pathological abnormalities or Markers of kidney damage (including abnormalities in the composition of the blood or urine or abnormalities in imaging tests). Lab Interpretation Abnormal (test code = 60345-5) [facility] METABOLIC PANEL (NA, K, CL, CO2, GLUCOSE, BUN, CREATININE, CA)2022-04-27 15:50:29 Test Item Value Reference Range Interpretation Comments NA (test code = 143 mmol/L 135-145 8589330122) K (test code = 2.4 mmol/L 3.5-5.0 LL 5271857272) CL (test code = 110 mmol/L 98-108 H 3104101199) CO2 TOTAL (test code = 28 mmol/L 23-31 8220197657) AGAP (test code = 2-16 6686788442) BUN (test code = 4 mg/dL 7-23 L 8629859456) GLUCOSE (test code = 56 mg/dL 70-110 L 1681864592) CREATININE (test code = 0.65 mg/dL 0.60-1.25 7361886301) CALCIUM (test code = 7.7 mg/dL 8.6-10.6 L 3829651526) eGFR (test code = mL/min/1.73m2 9457615505) LU (test code = LU) Association of Glomerular Filtration Rate (GFR) and Staging of Kidney Disease* + --+ --+ ------+| GFR (mL/min/1.73 m2) ?| With Kidney Damage ?| ?Without Kidney Damage+ --------+ --------+ +| ?>90 ?| ?Stage one ?| ? Normal ?+ ---+ ---+ -------+| ?60-89 ?| ?Stage two ?| ? Decreased GFR ? + --+ --+ ------+| ?30-59 ?| ?Stage three ?| ? Stage three ? + --+ --+ ------+| ?15-29 ?| ?Stage four ? | ? Stage four ?+ ---+ ---+ -------+| ?<15 (or dialysis) ? ?| ?Stage five ? | ? Stage five ?+ ---+ ---+ -------+ *Each stage assumes the associated GFR level has been in effect for at least three months. ?Stages 1 to 5, with or without kidney disease, indicate chronic kidney disease. Notes: Determination of stages one and two (with eGFR >59mL/min/1.73 m2) requires estimation of kidney damage for at least three months as defined by structural or functional abnormalities of the kidney, manifested by either:Pathological abnormalities or Markers of kidney damage (including abnormalities in the composition of the blood or urine or abnormalities in imaging tests). Lab Interpretation Abnormal (test code = 15861-9) [facility] [id number] 23:23:37 Test Item Value Reference Interpretation Comments Range TROPONIN I (test 0.007 ng/mL See_Comment [Automated code = 2061705742) message] The system which generated this result transmitted reference range : <=0.034. The reference range was not used to interpret this result as normal/abnormal . LU (test code = Reference (Normal) LU) Range (defined by the 99th percentile reference limit): <= 0.034 ng/mL Note: Cardiac troponin begins to rise 3-4 hours after the onset of ischemia. Repeat in 4-6 hours if the sample was drawn within 3-4 hours of the onset of the symptom and found normal. Diagnosis of myocardial injury is made with acute changes in cTn concentrations with at least one serial sample above the 99th percentile upper reference limit (URL), taken together with the patient's clinical presentation. Biotin has been reported to cause a negative bias, interpret results relative to patient's use of biotin. Lab Interpretation Normal (test code = 39666-0) [facility] ([id number])2022-04-26 23:23:37 Test Item Value Reference Range Interpretation Comments NA (test code = 143 mmol/L 135-145 7339805079) K (test code = 2.3 mmol/L 3.5-5 LL 4620190167) CL (test code = 107 mmol/L 98-108 0849769737) CO2 TOTAL (test code = 27 mmol/L 23-31 1082829281) AGAP (test code = 2-16 8211532847) BUN (test code = 4 mg/dL 7-23 L 9744389157) GLUCOSE (test code = 86 mg/dL 70-110 8094965462) CREATININE (test code = 0.73 mg/dL 0.6-1.25 6060357002) TOTAL BILI (test code = 0.7 mg/dL 0.1-1.3 3149503142) CALCIUM (test code = 7.6 mg/dL 8.6-10.6 L 8522224743) T PROTEIN (test code = 6.5 g/dL 6.3-8.2 5764405222) ALBUMIN (test code = 2.7 g/dL 3.5-5 L 5062356802) ALK PHOS (test code = 96 U/L 34-122 5332110116) ALTv (test code = 13 U/L 5-50 1742-6) AST(SGOT) (test code = 22 U/L 13-40 2783030997) eGFR (test code = mL/min/1.73m2 3508801422) LU (test code = LU) Association of Glomerular Filtration Rate (GFR) and Staging of Kidney Disease* + --+ --+ ------+| GFR (mL/min/1.73 m2) ?| With Kidney Damage ?| ?Without Kidney Damage+ --------+ --------+ +| ?>90 ?| ?Stage one ?| ? Normal ?+ ---+ ---+ -------+| ?60-89 ?| ?Stage two ?| ? Decreased GFR ? + --+ --+ ------+| ?30-59 ?| ?Stage three ?| ? Stage three ? + --+ --+ ------+| ?15-29 ?| ?Stage four ? | ? Stage four ?+ ---+ ---+ -------+| ?<15 (or dialysis) ? ?| ?Stage five ? | ? Stage five ?+ ---+ ---+ -------+ *Each stage assumes the associated GFR level has been in effect for at least three months. ?Stages 1 to 5, with or without kidney disease, indicate chronic kidney disease. Notes: Determination of stages one and two (with eGFR >59mL/min/1.73 m2) requires estimation of kidney damage for at least three months as defined by structural or functional abnormalities of the kidney, manifested by either:Pathological abnormalities or Markers of kidney damage (including abnormalities in the composition of the blood or urine or abnormalities in imaging tests). Lab Interpretation Abnormal (test code = 81861-9) [facility] [id number] 23:23:37 Test Item Value Reference Interpretation Comments Range TROPONIN I (test 0.007 ng/mL See_Comment [Automated code = 9866529600) message] The system which generated this result transmitted reference range : <=0.034. The reference range was not used to interpret this result as normal/abnormal . LU (test code = Reference (Normal) LU) Range (defined by the 99th percentile reference limit): <= 0.034 ng/mL Note: Cardiac troponin begins to rise 3-4 hours after the onset of ischemia. Repeat in 4-6 hours if the sample was drawn within 3-4 hours of the onset of the symptom and found normal. Diagnosis of myocardial injury is made with acute changes in cTn concentrations with at least one serial sample above the 99th percentile upper reference limit (URL), taken together with the patient's clinical presentation. Biotin has been reported to cause a negative bias, interpret results relative to patient's use of biotin. Lab Interpretation Normal (test code = 04603-9) [facility]. METABOLIC PANEL ([id number])2022-04-26 23:23:37 Test Item Value Reference Range Interpretation Comments NA (test code = 143 mmol/L 135-145 6992839715) K (test code = 2.3 mmol/L 3.5-5.0 LL 7216217604) CL (test code = 107 mmol/L 98-108 1422320359) CO2 TOTAL (test code = 27 mmol/L 23-31 3403693877) AGAP (test code = 2-16 5481550017) BUN (test code = 4 mg/dL 7-23 L 1533186818) GLUCOSE (test code = 86 mg/dL 70-110 8276124204) CREATININE (test code = 0.73 mg/dL 0.60-1.25 7873199849) TOTAL BILI (test code = 0.7 mg/dL 0.1-1.9 0825768315) CALCIUM (test code = 7.6 mg/dL 8.6-10.6 L 6864449953) T PROTEIN (test code = 6.5 g/dL 6.3-8.2 5495172689) ALBUMIN (test code = 2.7 g/dL 3.5-5.0 L 0220349065) ALK PHOS (test code = 96 U/L 34-122 3710683898) ALTv (test code = 13 U/L 5-50 1742-6) AST(SGOT) (test code = 22 U/L 13-40 5420766572) eGFR (test code = mL/min/1.73m2 6350976665) LU (test code = LU) Association of Glomerular Filtration Rate (GFR) and Staging of Kidney Disease* + --+ --+ ------+| GFR (mL/min/1.73 m2) ?| With Kidney Damage ?| ?Without Kidney Damage+ --------+ --------+ +| ?>90 ?| ?Stage one ?| ? Normal ?+ ---+ ---+ -------+| ?60-89 ?| ?Stage two ?| ? Decreased GFR ? + --+ --+ ------+| ?30-59 ?| ?Stage three ?| ? Stage three ? + --+ --+ ------+| ?15-29 ?| ?Stage four ? | ? Stage four ?+ ---+ ---+ -------+| ?<15 (or dialysis) ? ?| ?Stage five ? | ? Stage five ?+ ---+ ---+ -------+ *Each stage assumes the associated GFR level has been in effect for at least three months. ?Stages 1 to 5, with or without kidney disease, indicate chronic kidney disease. Notes: Determination of stages one and two (with eGFR >59mL/min/1.73 m2) requires estimation of kidney damage for at least three months as defined by structural or functional abnormalities of the kidney, manifested by either:Pathological abnormalities or Markers of kidney damage (including abnormalities in the composition of the blood or urine or abnormalities in imaging tests). Lab Interpretation Abnormal (test code = 29115-2) [facility] [id number] 23:23:37 Test Item Value Reference Interpretation Comments Range TROPONIN I (test 0.007 ng/mL See_Comment [Automated code = 9355145219) message] The system which generated this result transmitted reference range : <=0.034. The reference range was not used to interpret this result as normal/abnormal . LU (test code = Reference (Normal) UL) Range (defined by the 99th percentile reference limit): <= 0.034 ng/mL Note: Cardiac troponin begins to rise 3-4 hours after the onset of ischemia. Repeat in 4-6 hours if the sample was drawn within 3-4 hours of the onset of the symptom and found normal. Diagnosis of myocardial injury is made with acute changes in cTn concentrations with at least one serial sample above the 99th percentile upper reference limit (URL), taken together with the patient's clinical presentation. Biotin has been reported to cause a negative bias, interpret results relative to patient's use of biotin. Lab Interpretation Normal (test code = 64497-5) [facility]. METABOLIC PANEL ([id number])2022-04-26 23:23:37 Test Item Value Reference Range Interpretation Comments NA (test code = 143 mmol/L 135-145 4837922794) K (test code = 2.3 mmol/L 3.5-5.0 LL 2054359510) CL (test code = 107 mmol/L 98-108 8076743344) CO2 TOTAL (test code = 27 mmol/L 23-31 3306897670) AGAP (test code = 2-16 8072105357) BUN (test code = 4 mg/dL 7-23 L 6495786795) GLUCOSE (test code = 86 mg/dL 70-110 6259984044) CREATININE (test code = 0.73 mg/dL 0.60-1.25 4123298449) TOTAL BILI (test code = 0.7 mg/dL 0.1-1.7 0510091514) CALCIUM (test code = 7.6 mg/dL 8.6-10.6 L 2543052837) T PROTEIN (test code = 6.5 g/dL 6.3-8.2 3281399638) ALBUMIN (test code = 2.7 g/dL 3.5-5.0 L 8974825569) ALK PHOS (test code = 96 U/L 34-122 7481379914) ALTv (test code = 13 U/L 5-50 1742-6) AST(SGOT) (test code = 22 U/L 13-40 1980440745) eGFR (test code = mL/min/1.73m2 9924491050) LU (test code = LU) Association of Glomerular Filtration Rate (GFR) and Staging of Kidney Disease* + --+ --+ ------+| GFR (mL/min/1.73 m2) ?| With Kidney Damage ?| ?Without Kidney Damage+ --------+ --------+ +| ?>90 ?| ?Stage one ?| ? Normal ?+ ---+ ---+ -------+| ?60-89 ?| ?Stage two ?| ? Decreased GFR ? + --+ --+ ------+| ?30-59 ?| ?Stage three ?| ? Stage three ? + --+ --+ ------+| ?15-29 ?| ?Stage four ? | ? Stage four ?+ ---+ ---+ -------+| ?<15 (or dialysis) ? ?| ?Stage five ? | ? Stage five ?+ ---+ ---+ -------+ *Each stage assumes the associated GFR level has been in effect for at least three months. ?Stages 1 to 5, with or without kidney disease, indicate chronic kidney disease. Notes: Determination of stages one and two (with eGFR >59mL/min/1.73 m2) requires estimation of kidney damage for at least three months as defined by structural or functional abnormalities of the kidney, manifested by either:Pathological abnormalities or Markers of kidney damage (including abnormalities in the composition of the blood or urine or abnormalities in imaging tests). Lab Interpretation Abnormal (test code = 39918-3) [id number] 23:20:37 Test Item Value Reference Range Interpretation Comments NT-proBNP (test code 393 pg/mL See_Comment H [Autom ated = [id number]) message] The system which generated this result transmitted reference range : <=125. The reference range was not used to interpret this result as normal/abnormal . LU (test code = LU) Biotin has been reported to cause a negative bias, interpret results relative to patient's use of biotin. Lab Interpretation Abnormal (test code = 79103-7) [id number] 23:20:37 Test Item Value Reference Range Interpretation Comments NT-proBNP (test code 393 pg/mL See_Comment H [Autom ated = 7495064463) message] The system which generated this result transmitted reference range : <=125. The reference range was not used to interpret this result as normal/abnormal . LU (test code = LU) Biotin has been reported to cause a negative bias, interpret results relative to patient's use of biotin. Lab Interpretation Abnormal (test code = 67777-8) [facility] [id number] 23:20:37 Test Item Value Reference Range Interpretation Comments NT-proBNP (test code 393 pg/mL See_Comment H [Autom ated = 6145002049) message] The system which generated this result transmitted reference range : <=125. The reference range was not used to interpret this result as normal/abnormal . LU (test code = LU) Biotin has been reported to cause a negative bias, interpret results relative to patient's use of biotin. Lab Interpretation Abnormal (test code = 21063-6) [facility] Test Item Value Reference Range Interpretation Comments LIPASE (test code = 0800187588) 78 U/L 0-220 Lab Interpretation (test code = Normal 34854-0) [facility]:11[facility] Test Item Value Reference Range Interpretation Comments LIPASE (test code = 6626046852) 78 U/L 0-220 Lab Interpretation (test code = Normal 50802-8) [facility]:11[facility] Test Item Value Reference Range Interpretation Comments LIPASE (test code = 0385589892) 78 U/L 0-220 Lab Interpretation (test code = Normal 15508-0) [facility] WITH [id number] 22:55:18 Test Item Value Reference Range Interpretation Comments WBC (test code = See_Comment [Automated 2290-2) message] The sy stem which generated this result transmitted reference range : 4.20 - 10.70 10*3/?L. The reference range was not used to interpret this result as normal/abnormal . RBC (test code = See_Comment L [Automated 909-8) message] The sy stem which generated this result transmitted reference range : 4.26 - 5.52 10*6/?L. The reference range was not used to interpret this result as normal/abnormal . HGB (test code = 11.5 g/dL 12.2-16.4 L 718-7) HCT (test code = 34.4 % 38.4-49.3 L 4544-3) MCV (test code = 86.9 fL 81.7-95.6 787-2) MCH (test code = 29.0 pg 26.1-32.7 785-6) MCHC (test code = 33.4 g/dL 31.2-35 786-4) RDW-SD (test code = 45.2 fL 38.5-51.6 13428-7) RDW-CV (test code = 14.3 % 12.1-15.4 788-0) PLT (test code = See_Comment [Automated 777-3) message] The sy stem which generated this result transmitted reference range : 150 - 328 10*3/ ?L. The reference r alisson was not used to interpret this result as normal/abnormal . MPV (test code = 10.5 fL 9.8-13 53905-7) NRBC/100 WBC (test See_Comment [Automat ed code = 1115692636) message] The system which generated this result transmitted reference range : 0.0 - 10.0 /100 WBCs. The refer ence range was not u sed to interpret th is result as normal/abnormal . NRBC x10^3 (test code See_Comment [Auto mated = 3682944624) message] The s ystem which generated this result transmitted reference range : 10*3/?L. The reference range was not used to interpret this result as normal/abnormal . GRAN MAT (NEUT) % 73.6 % (test code = 770-8) IMM GRAN % (test code 0.30 % = 9043307701) LYMPH % (test code = 20.6 % 736-9) MONO % (test code = 4.9 % 5905-5) EOS % (test code = 0.3 % 713-8) BASO % (test code = 0.3 % 706-2) GRAN MAT x10^3(ANC) 6.49 10*3/uL 1.99-6.95 (test code = 0161200550) IMM GRAN x10^3 (test 0.03 10*3/uL 0-0.06 code = 0678813384) LYMPH x10^3 (test code 1.82 10*3/uL 1.09-3.23 = 731-0) MONO x10^3 (test code 0.43 10*3/uL 0.36-1.02 = 742-7) EOS x10^3 (test code = 0.03 10*3/uL 0.06-0.53 L 711-2) BASO x10^3 (test code 0.03 10*3/uL 0.01-0.09 = 704-7) Lab Interpretation Abnormal (test code = 41796-4) [facility] WITH [id number] 22:55:18 Test Item Value Reference Range Interpretation Comments WBC (test code = See_Comment [Automated 6690-2) message] The sy stem which generated this result transmitted reference range : 4.20 - 10.70 10*3/?L. The reference range was not used to interpret this result as normal/abnormal . RBC (test code = See_Comment L [Automated 789-8) message] The sy stem which generated this result transmitted reference range : 4.26 - 5.52 10*6/?L. The reference range was not used to interpret this result as normal/abnormal . HGB (test code = 11.5 g/dL 12.2-16.4 L 718-7) HCT (test code = 34.4 % 38.4-49.3 L 4544-3) MCV (test code = 86.9 fL 81.7-95.6 787-2) MCH (test code = 29.0 pg 26.1-32.7 785-6) MCHC (test code = 33.4 g/dL 31.2-35.0 786-4) RDW-SD (test code = 45.2 fL 38.5-51.6 34839-3) RDW-CV (test code = 14.3 % 12.1-15.4 788-0) PLT (test code = See_Comment [Automated 777-3) message] The sy stem which generated this result transmitted reference range : 150 - 328 10*3/ ?L. The reference r alisson was not used to interpret this result as normal/abnormal . MPV (test code = 10.5 fL 9.8-13.0 04263-4) NRBC/100 WBC (test See_Comment [Automat ed code = 1589976321) message] The system which generated this result transmitted reference range : 0.0 - 10.0 /100 WBCs. The refer ence range was not u sed to interpret th is result as normal/abnormal . NRBC x10^3 (test code <0.01 See_Comment [Auto mated = 4901459802) message] The s ystem which generated this result transmitted reference range : 10*3/?L. The reference range was not used to interpret this result as normal/abnormal . GRAN MAT (NEUT) % 73.6 % (test code = 770-8) IMM GRAN % (test code 0.30 % = 2939067701) LYMPH % (test code = 20.6 % 736-9) MONO % (test code = 4.9 % 5905-5) EOS % (test code = 0.3 % 713-8) BASO % (test code = 0.3 % 706-2) GRAN MAT x10^3(ANC) 6.49 10*3/uL 1.99-6.95 (test code = 4875664554) IMM GRAN x10^3 (test 0.03 10*3/uL 0.00-0.06 code = 1973764707) LYMPH x10^3 (test code 1.82 10*3/uL 1.09-3.23 = 731-0) MONO x10^3 (test code 0.43 10*3/uL 0.36-1.02 = 742-7) EOS x10^3 (test code = 0.03 10*3/uL 0.06-0.53 L 711-2) BASO x10^3 (test code 0.03 10*3/uL 0.01-0.09 = 704-7) Lab Interpretation Abnormal (test code = 03789-3) [facility] WITH [id number] 22:55:18 Test Item Value Reference Range Interpretation Comments WBC (test code = See_Comment [Automated 8090-2) message] The sy stem which generated this result transmitted reference range : 4.20 - 10.70 10*3/?L. The reference range was not used to interpret this result as normal/abnormal . RBC (test code = See_Comment L [Automated 539-8) message] The sy stem which generated this result transmitted reference range : 4.26 - 5.52 10*6/?L. The reference range was not used to interpret this result as normal/abnormal . HGB (test code = 11.5 g/dL 12.2-16.4 L 718-7) HCT (test code = 34.4 % 38.4-49.3 L 4544-3) MCV (test code = 86.9 fL 81.7-95.6 787-2) MCH (test code = 29.0 pg 26.1-32.7 785-6) MCHC (test code = 33.4 g/dL 31.2-35.0 786-4) RDW-SD (test code = 45.2 fL 38.5-51.6 15997-4) RDW-CV (test code = 14.3 % 12.1-15.4 788-0) PLT (test code = See_Comment [Automated 777-3) message] The sy stem which generated this result transmitted reference range : 150 - 328 10*3/ ?L. The reference r alisson was not used to interpret this result as normal/abnormal . MPV (test code = 10.5 fL 9.8-13.0 60086-3) NRBC/100 WBC (test See_Comment [Automat ed code = 1536024262) message] The system which generated this result transmitted reference range : 0.0 - 10.0 /100 WBCs. The refer ence range was not u sed to interpret th is result as normal/abnormal . NRBC x10^3 (test code <0.01 See_Comment [Auto mated = 3663607864) message] The s ystem which generated this result transmitted reference range : 10*3/?L. The reference range was not used to interpret this result as normal/abnormal . GRAN MAT (NEUT) % 73.6 % (test code = 770-8) IMM GRAN % (test code 0.30 % = 2847760558) LYMPH % (test code = 20.6 % 736-9) MONO % (test code = 4.9 % 5905-5) EOS % (test code = 0.3 % 713-8) BASO % (test code = 0.3 % 706-2) GRAN MAT x10^3(ANC) 6.49 10*3/uL 1.99-6.95 (test code = 4126834293) IMM GRAN x10^3 (test 0.03 10*3/uL 0.00-0.06 code = 5514777229) LYMPH x10^3 (test code 1.82 10*3/uL 1.09-3.23 = 731-0) MONO x10^3 (test code 0.43 10*3/uL 0.36-1.02 = 742-7) EOS x10^3 (test code = 0.03 10*3/uL 0.06-0.53 L 711-2) BASO x10^3 (test code 0.03 10*3/uL 0.01-0.09 = 704-7) Lab Interpretation Abnormal (test code = 56645-6) [facility] [id number] 16:42:42 Test Item Value Reference Range Interpretation Comments Case Report (test code Surgical Pathology ? ? = [id number]) ?Case: [id number] ? Authorizing Provider: ?Negrito Simeon MD ? Collected: ? 03/12/2022 1050 ?Ordering Location: ? ? [facility] ? ? ?Received: ?03/12/2022 1656 ? [facility] ?Pathologist: ? Carolin Ruiz MD ? Specimens: ? A) - APPENDIX ? B) - HERNIA SAC, RIGHT INGUINAL, RIGHT INGUINAL HERNIA SAC ? Final Diagnosis (test u4lynJLwJYZny0msAFWzjD code = 2108104348) FuZzEwMzNcZnRuYdavidcdWMx IHtccnRmMVxhbnNpXGRlZm whxnnaGTOsOQI4bhInREQg ZYT2WFW1YaYhFCEfCxc3BZ DmPE6ukSvhqUq3kXgdDDMq ebA6jBOuXEcmf3ykKNC8k6 pfsbixRNGdQDrvHw2nkSKn mOfcLbQkVXCdCNv9uC24TG WriF7qvMWfQUzmhySoSvF8 ZYqoVPBmHlT4ANLgkWApPQ V0oNgyRQKdjbkyFiE5SMnz BTDgcmswTXy4ETraFEYsuY I5WXTtgGBuI2DfIPMmRR5c rjq1ACV7QCmdOQAcVkH7AR TbbDNeWRRigAiaHNscz021 BCR0LiXkPAZutaComDniyB 9pAtIpJUrhSXJbDI8gYWEY DR0GBHucHHXXQLTHOHLCMU 9NWTpccGFyICAgICAtIEJF TklHTiBBUFBFTkRJWCBUSV KFFUEnW1rMFHALWAYYYTis J93KA9KTDRzZFkVOAcDUSB BXMAWEEH8MNNKRWJpkIAON NZ3RQTJKOVGQYFEbwXIyUP UpktVTNxFuS3gyBqJwnLUi SEVSTklBIFNBQywgRVhDSV TGI427VVTnhoz+XL7gyij+ KP4sXWYBIryHGbLTHCRIRJ sMWOtIAAUKYM6YHFZBLZXK J8RHTFDCC9XxFFnTI2SQTI qDXZulDxYAD1NXWAZkP20Q O5ONQEwQDkpgIKPsffHrKG RjQUDgT44QO2aKQYOEKZVU SXAITTpNXm1WSIXEBCKskM LySWMtJ0IrAIKvAOSkgsmz czIyIExpbmRzYXkgQmlnaG XpWBSXFwNlDY8iEJ1mVALz IUT5YmHbVRVRBGWlnclpyo MmMXFkul87HXW5CcKai4J4 YXEmSfDlOGGiZD2tyLitXZ QbRN0bYYAhV6tbeC6mymm1 UzOaFZBmIpY6GPDzzlW1Or b5BKVxAPatj7bqt3AzF2Hd jFZswQf8t6irJTXsGrD2nV BfXXxaG1snraDkvBXmXQWi EYm7oPakEsJzKEKii1fuxr BcZmNoYXJzZXQwIENhbGli bgb7sE58YPInnK6ojEVqJS kddmCeUfX9WYhkPQGzWeT7 EGJznVWnCVIsW7oeVMYcYJ nuLNIgYXsrtTWmFBU6yPje d0G4xNMuaWDspWdgLzRmUi BtKBVFm7OjZXn3nBslQ8Zo TRHmAvB9eHLgRXUbBTicKF OeOIXfahU2jT68XVxptoS3 yYWxd5Dae04ka576vS4ffW ZbGZG4XBBvEOLdeRUlAHWd USO3DBUxqMNqK6wwFBOzOL 2vrppcGJhrYAncUYMdrVH5 ERHhwFYjU2NoXIPfWYlwUT Rpmsl9IbCzRk8koQPhmIcc XQvre2smc2rdkRDvTbu7LW HcApDpTsaxAPirx6Vmu1ao FDAagu2kCFV6sIUuiVoqs5 U6kLDePRGjaZCwiqYqRLSk AfX6PSzqXN2gzr10ESEoCA I2ww3wpMIejIcifnJreVDg TFkyX6WrUYUme555MLSgT4 HnOBHpn1V6xdVeQyAtAJRb vDZ9ggG8ZFIkSGg8jLLszm J8ezCwzJPoJ8wneC9kYTRa ZW8rvfewu2cjEZzlGXivFA XolPR1nkG9IOWgfIEjT2Gm eQ0lVFPzOZnhXBUfbnu3By VmJb6caSEhvGmrUQquVkor YWdlXHBnbmNvbnRccGduZG VjXHBsYWluXHBsYWluXGYw ZIFrFvYofWjtjUxklR1rCp CzOiKcIEpoBN0oUBKeD7op cQKxZKMzOMQyQ0hoCoWtuQ 9jaFxmMVxjZjJcZnMyMFxw YXIgSSBoYXZlIHBlcnNvbm KaeMdxvjV1dTB6BMYrZZgx IXHhRIImtQQtpl6cgMmlQU FcXC1iHFTzkgIhKGvucDsl OSydYOF7OWBobASziLHalD FkZSBieSByZXNpZGVudHMs CBGsfPfqb2Woh0UawMQ9rU 9jl3xrc2ReSOSlpEO3CD30 cyR8gC9sGRZgBF4uORBvYS 9wmEMinBQcDVWko13zrJsk cyByZXBvcnQuXHBsYWluXG YyXGZzMjhcbGFuZzEwMzNc aGljaFxmMlxkYmNoXGYyXG wrQ7opTdFyInOlYIchYOW5 tWcznlMhCPstr0IjD6QxFh AwMFxhbnNpXGRlZmxhbmcx SMCgEZL1wgSyFLAhYPdnSR IcRKfaMt3nzPPwdRphFlKv TWBac0lpxzKSVPncOtZjR5 87PQTcWFjoh8mqq2AcTSGb iBUli1H5TICGtntxuVc0eA fbP32eh8J2QrwwM3ytAAGa UZRzL1PdGQ5yHOQkYsm9AS H7PEN0UFTaTYNdC5UvHN8z FOYqhKVlRAn2k2lphHlnEU TpQLZ6t3hvJTluqjB5RJ1j xl5wkDg1w2xhlfMtVRAaNW WomRJZFLPpE7KcsZfhGu3z sNw7oPzuAimhOOI4Jtt2XB 0ggk80xid8jBowFVYcacmy CsR6ZQyvMVVoniadVXq0WE kdCCHovCA2BPSnoIHeC9Ft PGQoYI4rfsi7DXF4XPqoBU CeYaE9DMXrlSZmHIOhzLrb XUgog429RYR9YyNiZD8uI0 Kdz5D0cK5cxBGiGFTfoCNd HaCyUSSkof2opPEgHHqtu6 DoN81nrOR7MFxfi6kpXC3s QdL7qbZqKXkrz1fnmK4qBz U3NLjcJV2goo86FXEdMHO0 ig7vlFJxoCazzpFkwJZlFS wxQ5MpXFEtd371GTTiZ7Ii JTXfo4E7hsMkEvBsDMNieJ L5lnU3DCXrMDv8rAWzsfO0 ueWdeLVsD2vqbB3tISVkIY 5zoyubw7jfJBcsGNkjRYCm pAC4ldX9HWSszHQlD3WoaM 1cQYRkZGvvPIQeorx6DuEl Hp3pkEHdbZdgTRqqTzwoTZ dlXHBnbmNvbnRccGduZGVj XHBsYWluXHBsYWluXGYwXG CkHuOezNIuDAbcp7HitsXm zDrzNSUkVRc1prHxegutcY h7fTKnlTkwRMMtiWwnwY9j FlLiIzRnQYgsTM5qZQCyF1 zwsKGwBRMjXNSvJ3ttOkPt hV4nsZhkSEnnKuBzMkRjGF xsdHJjaFxwYXIgSSBoYXZl KASliiIyiuHkjXcrxkY1zF B2IQHfNLhvUIJiNFJrgYRc rv9ioWbuQMSoSG4sFKEuaq DrSHedsGovIRgsUIY5GNCv bWVudHMgbWFkZSBieSByZX FsZOEuhQJkVCLysCevf4Co t0NhvNN7dQ1fa0cej8OfPP DrwCB9LC40yaU6eZ3uWUBj XI2sXYXxIW8igMAnhZIgFU Urx87cmSyccvVgZDCemgNb XHBsYWluXGYxXGZzMjBcbG FuZzEwMzNcaGljaFxmMVxk KdGuLDYjLHsnJ4mxQaYkB5 YyXGZzMjBccGFyXHBhclxw FRDba4YvVuIkd6kwZDbnt4 mygOh6EOdgdNBjhtljBJww jaW4PSFuQPtcDCOmSKCqKY RcbGFuZzEwMzNcaGljaFxm GYqjZiUvTFUgKMibC6pyXh OcI3IgUEWjNUXxmUOzR4ms FIU4qF3do3jtz2HqeSWuMo Sln8akvyDoXDCetCNorlNg eNPiDJPet9CgWLYjKYIkSR LQSl5VWAWcdXUgD6w0mNQR NX6tdMYoCXZlDAAuT4IvHi YJefRql3Y9HCWbbWXpKZYH OLRcuZTtJ2d7sMebPWwgBm n1TmZxgUmooI6nOtSuHbFp ELksBO6jSKGyR8qlmVNmFY FjNNGcL2dxAqYdxT3glYec MVxjZjJcZnMyMFxsdHJjaF kgCBI2nZ== Clinical Information RIGHT INGUINAL HERNIA (test code = 4395458701) Gross Description (test l9mjcNYyVISwaWAXDPBvD2 code = 2895226691) umviYfMPBmuVInL7Aylvtk AHeuHI9wIN1bzNnluRYvyH AiJZ1HPRInYgRqCUZgiQQa ruQfRlKfZYBirZErnWN5KA MrRB6vflegBXfeRDqaJYNm iqS9JUFfxNVvU6JiEHXmXA 5fnhvnFCX3BQbxaQ9fgkOE TmgcEi1zlHFboFzqSmSwWx NoYXJzZXQwXGZuaWwgQXJp KPu9jK3KWanqFOF6APVNEp ddYVQjBZ8Gs5gnFIAyiVFn DSF6EWdtgRAlWWDeRWYbXE u0QKHdINvwkMAaRG6guRxi UpxueGswd1NewWQtSZwgNO OxNCYxFHzdIHTgRK9ITeYr ZDX8YGwmWYiaWCj7RPo8BR 9WUyAiICAxODgyOTUyMSIg LHs6AQuzKZ5EFAX1SmP7VI P7QlxnKYZxWztjZFg9OFJo XFxmIEFyaWFsIFxcZnMgMT OuPSqzuZKjAB3zeQoxnMNt blxmczIwIFNQRUNJTUVOIE WkgWWvXU9PQFKkGDqnIFOv jEVJEFI1KW3fPLFSOkqozU PcHCDgcTdiTRkjuJ6uCM3Z GGg4qoOrIXOsGdFxH9ZpW1 ewJK3hXDBzqbMjEPGjiSUv AVJhphGga9XrTXdrdvZuAA JlbGVkIHdpdGggdGhlIHBh rSbgifDdavKuCQ0gJPKXXC AyfO0vXGHqVrUpiUOcPIj3 TqwcMJ0kWQZxygDbt4LcLE 9mIGFuIGludGFjdCwgdmVy fFnmt7UtMNWfiEXgYOx2FA e4MiOhB57mvB8upAYwG7Gg DJenNN37ATXuOTSeoQWeam DjmPKhWHFydhepy4q8fLNa tRUpV1emOYOmBVToQJNqAV 3uzHcxAO9rXXWkR0D7pSLf nTzaIOTrUYQxU4Khr50ziS WoC1hwKbZMlCUur5Ppp8Yz KSmyOTYygb6qlA4tBXCdVD VrgdExu97ezhJmiHx0DLRb f204aBY3pCAuSPLvucqih8 VsPUC9LNVjUGutKfDJxRFv e2UdB3yfLY4hsZCyw0RlxU AmjYcmt3IhdPcucsRvIUOo CONyhrHflRB6PG7spNqvtr RwuVJkj1OpRuKiOGDuWN8u UJPkjXVmAV5fsoMmC0dqEs Jnbb4cLAOnvnTwnK49ESBb NSBjbSBpbiBkaWFtZXRlci Q6aGO1QKBsadUsnD2wPMQt B64uzM79twRltN52gnYgc7 Yym13fkSQ1PZ0fZtOcf82f ZpHuSJipqLN0EBLzREsgVK 1pWFEunrTkluQ9nF5dbxQy pzZaJ0Ewx1BgsSBxARYdfJ geaRVeHcQDCJU1uI0texE1 byBpbmNsdWRlIHRoZSBlbi WvFIXvTGCmv7KkrYcjrxNx RYPgwW5mRPpei2VaERRbzW UpLCByZXByZXNlbnRhdGl2 ROKtaq9neo2qYQS9hG8fHC TdqePjRmhrCOS1PRJwuQdd MXNqUMSfrTDjcFD2QJIkiM 2hURVxITgdfBjwbJ1iNABz R60jv0KFs9ZxREVhCZpgt2 syiMnru1XneFFjRZcvVBWw hUUaUNyaaD9pWiKnx7gryW o9WDaxtlD2RAAqiy2WTxqo DbdrbTjvd6UguBPaRQzzST FiSJMuUSwsPWEoVF7STmKi LKM0QFznPSjyZAm0WYr9DA 4IGpRwUZOgIEttJZy5SIYr PPu7QTzlRY3OHMV7WkG0NV M3OQZnSHHuByahNNt2QWZm XFxmIEFyaWFsIFxcZnMgMT MvXEhvpXHtUC5umHwdcvZd IFNQRUNJTUVOIEJccGFyIA 8VEVXzAHpoJLMfqRCDJLM9 LL8nFQNMElzapLChLYKtoG igXDjvaA3cWK5RUGw7zvBl EJUeEdAtZ7ObS8tjAP2sJm BpcyByZWNlaXZlZCBpbiBm h0OdAXmgfnZyNFLvdBMyRN dpdGggdGhlIHBhdGllbnQn lqLpVQ7kMHPDZOMsgA1wMQ HxOtZpvFkurFRcrmm2mV1d hGThOHNehBXky9RyTsvbZM 6cCNXdmeEfi0MeZI2tDHTi aHNaGDDjzfzhp3JgY3OcIG Opw30soCK6tCWitBMfPvSx L63sqcWcLFFuENB0JQQuFW C7AVMrWySpaOius6gxG8ua yHJxs2FhlTAdwStps5MntD lvbmVkIHRvIHJldmVhbCB0 IK1uwNocluFvAJ0cqmOwu6 YlFYO2jQOizQBxBGQsdy8v ABKktVErz2ZfhKD7nVOfSW SiQ5Xcz40jLVNkHQDujTVt tIX5ATKdjL9cVbTlSDLiqd GOLgqfTQEoBKxUONG3TNKt amVzdGthLCBQQSAoQVNDUC kNClxwbGFpblxlcGljTmVz eNWfRlCfvMdtrW65GILzhK TfRNS6KD6qPVNinslaGGJw RJTlOGN7PQiynA12jJRzPU YhUPMbxNFtpA7DIERqNFD4 KUtqiO73nWSkSW4LGTPcTB R5EWOshGIsIAR7RS3igV2T fQ== Disclaimer (test code = o6jrdVDuEVYbx2cgEWMxfX [id number]) FuZzEwMzNcZnRuYmpcdWMx MEhrwdUjHRfoi4GwQ3RxFp AwMFxhbnNpXGRlZmxhbmcx TTVnSVS8pyNxPFIvZSxrGX MiVCsjOh4lpXTbwDnqKmSb LJPsj9njtqSANZnrUzFvH8 40NBZdDJfee6bms8DjBHNd jTUdv1C0LFWPgsvtaWv9dN jxE84vo3T8GjujC3mxGSCz NQQeE2AlWF1wIQAhHnu3DP I2TTE6WIFbNUZdL8ShYI7v PPEydHAfXCy1u1wcjUplIF WlLET4p5xiOGcvlrFjCP1y bw0ggYn2p7dckoFfRYYrSI CylEKXGLFqW5CexDktUn4k cWf3zBhlElagYEU0Lcp4RD 0tlz92daf9yBiuAUPkxxit FnS9EOcgRLUtfaufVBw6ZL uuMCRuyTR4RKDdvHUcR5Cc SAOtKO6tzmt6MXA8KYwpHA UlIfQ3QFHzuWZvOQIefQyw RFfnp076LYF3TpWeHF1iC6 Ymb3A8mP3lsEUzUHJzlMHh FuWvESJrhc9dcYTmWEhwp6 HdYWK0nvD1yPZlfGSuGUCh GY89Uoted7QbMopjp8TbH8 9mmYF5ZSvkl5vhJH9uLkB2 rwEjQNnzb5arpL3oGhQ3TC weYQ7aSX1qXWXblF6biicy XHBnYnJkcmhlYWRccGdicm SkVc5geKeiROM3MRxwP6if uK2vPgO2NJicR2roaS9hDD h3WObjlGN9NUOumH6jLG6c dkpsc8apVNiqSBmpYXYtxg V0raF8YZJgxEViB4ZddS3v CTHxWO9xhchzp5sgTVP7FD hbZNQzVCO3OvUyPRCcb8Jl jhy0AgUeb4MsdPYoQTskK1 5kv982JKTbxfDuG3nqdWVb gnnusBIknfkxEGujecP2YD UyyzLur3SgHSYbGSY0DSjs DQdxoVJzGZAvyFbhj1rxH9 RscGFyXHBsYWluXGYxXGZz MjBcbGFuZzEwMzNcaGljaF yiEDufEkJcYWStWHcsX0hd GhCbY3NqBPXzNuCziHDiW5 ggVGhpcyByZXBvcnQgbWF5 KVqxF2a8OAZkasTibIy6lq DkMqOyBRXiNVZ8QVlyeKGw VTRwu2HkzarejBPrKw8knN DtERXasV0dICYvJPByYWru GZ7ppZu9VTZSkJOxnVHvBr VAIAHsUQ36yjJvLMWNugxw w8E6XUogUCQdt1XthJZiW8 xbb8LpVUGqv62bFP5nw8A1 n3xoYDV9GA8ef4RkWJLvwH YboSUmNMRws0Ocrdfrx9Of JWGkdnNgv7BwCZKppwBvoO MgDGWdtjGtwc8hrrHeOUNd ZMFdT6MzohbhwItfkhWuIQ Oytt8ikvBoUUB3TDRRBGWy VIJlm6UcjW0duOWWKTF8sD Hghp8cnmNBrSUpVMKdxv68 LTVbLH1oA0dsWERjXMMvoo XhzLBxl4AtVNWwgZK4wDRu XO9UDrZJm48kLRXhPIYRfa SbDVCogRyxqZH7ziD6qG6b IChGREEpLlx+IFRoZSBGRE PrQF1kgmCwp6FeinOdyWpk RBVjqBIlh7RfqBDst4GwnV hpu6LirWIjyHVpMF8fKAIu clxwYXIgVVRNQiBMYWJvcm F7n1DzATQsUQUuOEJ8xRfs vga7ZZZjcL1yFDVyR2pedi quOFqiZNKzc3FpyO7aqYQB oSOmp2EthPVigDTKrYQsMS 7bqoSzJVhNJKnQFII8ecBk WTAeh1MqFQjsM3xqG40woJ yqqMk4nVW8HWC9mX9pHej+ IFxwYXJccGFyIEFwcHJvcH FzSANvuNqqhqHiY0EtgjHe aP2ccJBhnoEjXO9iBV0gY8 G1mVQfKXCbmyMzi2jyUFsu dmUgYmVlbiByZXZpZXdlZC Vcl4FqKPrvZRZ4JRsbqaTc bmNsdWRpbmcgSCZFLCBTcG DgxBLrZYT8KAqdrfDizrSf FA0kkC7iqSknrF2bwAXaxP G6spxoUWMnGZHevLbcXOOc QO4kvMXqWHLpzsMAfBohxE LkwL2iM4GoJOXqESCcyc1z OSFlaP1cGBkvq7PmnpskHZ DlXYHiEVWpgfIleo2lYDYd vCRTQZ9BZAzqsZRfm3Oujn IcT1sWLDG9ZAXqFaBdIosi JJMbvBXsuXWlMXQjqy70KV BaaX3utEdpMQXfkE8xmM6b cMlzuO6zGgQjXyGhNMkiMU 0tJEPjH0amrVAbLUKnBJBd F4cnApFjgL1wcLatWGeaKw CkBmHmEWolKZG1cA== Embedded Images (test code = 9773278660) [facility] - This is a pre-surgical type and screen. ONCE [id number] 17:52:02 Test Item Value Reference Range Interpretation Comments ABO & RH (test AB POSITIVE Performed at [facility] code = 20) Laboratory Serv [facility] [place] [id number] Free: [phone] A No. [id number] IAT (test code = Negative Performed a t [facility] 1185) Laboratory Serv [facility] [address] [place] [address] s 77265Vfvz Free: [phone] A No. [id number] [facility] CenterPREAL[facility]UMIN2022-04-14 23:13:17 Test Item Value Reference Range Interpretation Comments PALB (test code = 84252-9) 20.2 mg/dL 18.0-45.0 Lab Interpretation (test code = Normal 31317-1) [facility] CenterHEPATIC FUNCTION PANEL (45426) (ALB,T.PRO,BILI T,BU/BC,ALT,AST,ALK PHOS)2022-02-04 23:05:58 Test Item Value Reference Range Interpretation Comments TOTAL BILI (test code = 4650773017) 0.4 mg/dL 0.1-1.1 BILI UNCON (test code = 1564639908) 0.2 mg/dL 0.1-1.1 BILI CONJ (test code = 0169620171) 0.0 mg/dL 0.0-0.3 T PROTEIN (test code = 2712217810) 7.7 g/dL 6.3-8.2 ALBUMIN (test code = 6654091072) 3.4 g/dL 3.5-5.0 L ALK PHOS (test code = 5638699658) 65 U/L 34-122 ALTv (test code = 1742-6) 11 U/L 5-50 AST(SGOT) (test code = 0771379738) 23 U/L 13-40 Lab Interpretation (test code = Abnormal 28005-6) [facility] CenterAC[facility]IS [id number] 03:38:00 Test Item Value Reference Range Interpretation Comments AB HEPATITIS A IGM NEGATIVE (test code = HAVMAB) AG HEPATITIS B NEGATIVE SCREEN NEGATIVE SURFACE (test code = HBSAG) AB HEPATITIS B CORE NEGATIVE IGM (test code = HBCMAB) AB HEPATITIS C (test <0.1 RATIO <0.8 S/C RAT ION 0.0 - code = HCVAB) 0.9 NEGATIVE <0.8INDETERMINA TE 0.8 - 0.9POSITI VE >0.9 [id number] 16:06:00 Test Item Value Reference Range Interpretation Comments SURG (test code = SURG) RUN DATE: 10/07/20 [facility] PAGE 1 RUN TIME: 1607 Specimen Inquiry RUN USER: INTERFACE PATIENT: FIONA SANCHES JR LOC: WINTER U #: [id number] AGE/SX: 35/M ROOM: WINTER RE10/06/20REG DR: Sreekanth Garcia MD : 84 BED: 3 DIS: STATUS: ADM Arcadio TLOC: SPEC #: [id number] RECD: 10/06/20 STATUS: ELZA CHURCHILL #: [id number] MIRIAM: 10/06/[address]: Sreekanth Garcia MD ENTERED: 10/06/20 SP TYPE: SURG OTHR DR: DOES_NOT KNOW No Primary or Family Physician Juan Mcbride MD, Jignesh P MDORDERED: SURG PATH LVL 4 COPIES TO: DOES_NOT KNOW No Primary [place] [id number] [place] [address] [email or web address] [address] [place], [place] [address] Arnulfo Cormier MD [address] [place], [place] [id number] HISTOLOGY: TISSUE ID BLK PCS KANWAL LEV PROCEDURE DISPOSITION ____ ___ ___ ___ ESOPHAGUS, NOS A 1 2 PROCEDURES: SURG PATH LVL 4 (10/06/20) TISSUES: A. ESOPHAGUS, NOS - ESOPHAGUS BIOPSY CLINICAL HISTORY ESOPHAGEAL FOOD BOLUS, STRICTURE V DYSMOTILITY CONTINUED ON NEXT PAGE RUN DATE: 10/07/20 [facility] PAGE 2 RUN TIME: 1607 Specimen Inquiry RUN USER: INTERFACE SPEC #: [facility]:[id number] PATIENT: FIONA SANCHES JR #[id number] (Continued) CPT CODES CPT CODE(S): 25513 , , , , , , FINAL DIAGNOSIS Esophagus, biopsy: ACUTE ESOPHAGITIS WITH CANDIDIASIS NEGATIVE FOR INTESTINAL METAPLASIA, DYSPLASIA, OR MALIGNANCY GROSS DESCRIPTION Esophagus biopsy. Received in formalin are multiple minute fragments of suarez soft tissue, 0.1 - 0.3 cm. The specimen is filtered in a teabag and entirely submitted as A. ba/nr Grossing performed at [facility] Pathology, [address] [place] [address], [address], [place] [address]. [employer] Salesperson: Abner Steward M.D. MICROSCOPIC DESCRIPTION Esophagus biopsy. Sections demonstrate squamous mucosa with a reactive appearance and increased acute inflammation. Detached fragments of squamous mucosa are identified with associated fungal organisms. No dysplasia or malignancy is seen. Alcian blue-PAS confirm the absence of intestinal metaplasia. Signed SIGNATURE ON FILE Deric Fink 10/07/20 0706 END OF REPORT Novel Coronavirus 15:50:00 Test Item Value Reference Range Interpretation Comments Novel Coronavirus Negative Negative Positive r esults are 2019 Inhouse (test indicativ e of the presence code = UZKTI71NO) ofSARS-CoV -2 RNA, clinical correlation wit h [...] indicativ e of the presence code = CLIHN79CQ) ofSARS-CoV -2 RNA, clinical correlation wit h [...] for the identification of SARS-CoV-2 RNA usingthe [employer] M2000 Sy stem under the FDA Emergen cy UseAuthorizatio n. The testing is perf ormed by personneltraine d in the procedures for the [employer] M2000 molecular diagnostic SARS-CoV-2 assa y in vitro. CBC W/AUTO [id number] 13:10:00 Test Item Value Reference Range Interpretation [...] NT WITH AUTO DIFFERENTI AL. CBC W/AUTO [id number] 13:10:00 Test Item Value Reference Range Interpretation [...] CONSISTA NT WITH AUTO DIFFERENTI AL. RBC [id number] 13:10:00 Test Item Value Reference Range Interpretation Comments PLATELET ESTIMATE DECREASED THOUSAND ADEQUATE PLAT ELET COUNT (test code = REVIEWED AND PLTEST) VERIFIED. PLATELET MORPHOLOGY NORMAL (test code = PLTMORPH) CBC W/AUTO [id number] 13:10:00 Test Item Value Reference Range Interpretation [...] NT WITH AUTO DIFFERENTI AL. COMPREHENSIVE METABOLIC [id number] 11:48:00 Test Item Value Reference Range Interpretation [...] TOTAL (test code = ALKP) CBC W/AUTO [id number] 11:33:00 Test Item Value Reference Range Interpretation [...] REQUIRED (test code = DIFF/SCN CRITERIA MDIFF) [id number] 04:59:00 Test Item Value Reference Range Interpretation Comments AMMONIA (test code = AMM) 56 mcMOL/L 11-32 H LACTIC [id number] 04:59:00 Test Item Value Reference Range Interpretation Comments LACTIC ACID (test code = LACT) 0.7 mmol/L 0.4-2.0 N GLUCOSE BEDSIDE [id number] 20:35:00 Test Item Value Reference Range Interpretation Comments GLUCOSE BEDSIDE TESTING (test code 109 mg/dL 70-110 N = GLUBED) GLUCOSE BEDSIDE [id number] 17:10:00 Test Item Value Reference Range Interpretation Comments GLUCOSE BEDSIDE TESTING (test code 105 mg/dL 70-110 N = GLUBED) - US ABDOMEN [id number] 16:39:00 [facility] : 1985 Sex: M Name: FIONA SANCHES JR [facility] : 1985 Age/S: 35 / M [address] Unit #: [id number] Loc: [place] [address] Phys: Matilda Kirk PA-C Acct: [id number] Dis Date: Status: ADM IN PHONE#: [phone] Exam Date: 10/06/2020 6556 FAX #: Reason:elevated lfts, evaluate for cirrhosis EXAMS: CPT: [id number] US ABDOMEN [facility] [address] RIGHT UPPER QUADRANT ULTRASOUND. CLINICAL HISTORY: Elevated [...] Signed Report (CONTINUED) Name: FIONA SANCHES JR [place] : 1985 Age/S: 35 / M [address] Unit #: [id number] Loc: [place] [address] Phys: Matilda Kirk PA-C Acct: [id number] Dis Date: Status: ADM IN PHONE #: [phone] Exam Date: 10/06/2020 1515FAX #: Reason: elevated lfts, evaluate for cirrhosis EXAMS: CPT: [id number] US ABDOMEN LTD [address] <Continued> CC: Sreekanth Garcia MD; Matilda Kirk Technologist: Rae Eaton [facility] Date/Time: 10/06/2020 (1639) [email or web address] PAGE 2 Signed Report Name: FIONA SANCHES JR [place] : 1985 Age/S: 35 / M [address] Unit #: [id number] Loc: [place] [address] Phys: Matilda Kirk PA-C Acct: [id number] Dis Date: Status: ADM IN PHONE #: [phone] Exam Date: 10/06/2020 1515 FAX #: Reason: elevated lfts, evaluate for cirrhosis EXAMS: CPT: [id number] US ABDOMEN LTD [address] <Continued> Orig Print D/T: S: 10/06/2020 (1853) Probe: PAGE 3 Signed ReportUA RFLX MICR CULT IF [id number] 15:23:00 Test Item Value Reference Range Interpretation [...] RiskForSepsis-no oth srcUA RFLX MICR CULT IF [id number] 15:09:00 Test Item Value Reference Range Interpretation [...] 92 mg/dL 70-110 N GLUBED) GLUCOSE BEDSIDE [id number] 13:37:00 Test Item Value Reference Range Interpretation Comments GLUCOSE BEDSIDE TESTING (test code = 58 mg/dL 70-110 L GLUBED) CREATINE KINASE (CK)2020-10-06 11:26:00 Test Item Value Reference Range Interpretation Comments CREATINE KINASE (CK) (test code = 287 Unit/L 26-192 H CK) [id number] 11:26:00 Test Item Value Reference Range Interpretation Comments AMYLASE (test code = JOSE CARLOS) 120 Unit/L 25-115 H [id number] 11:26:00 Test Item Value Reference Range Interpretation Comments LIPASE (test code = LIP) 112 Unit/L 114-286 L CBC W/AUTO [id number] 09:58:00 Test Item Value Reference Range Interpretation [...] DIFF/SCN CRITERIA (test code = MDIFF) WBC [id number] 09:58:00 Test Item Value Reference Range Interpretation [...] NORMAL (test code = PLTMORPH) CBC W/AUTO [id number] 09:55:00 Test Item Value Reference Range Interpretation [...] DIFF/SCN CRITERIA (test code = MDIFF) WBC [id number] 09:55:00 Test Item Value Reference Range Interpretation Comments SEGMENTED NEUTROPHILS (test code = SEG) % 40-75 LYMPHOCYTE (test code = LYMPH) % 12.6-43.5 CBC W/AUTO [id number] 09:55:00 Test Item Value Reference Range Interpretation [...] DIFF/SCN CRITERIA (test code = MDIFF) WBC [id number] 09:55:00 Test Item Value Reference Range Interpretation Comments SEGMENTED NEUTROPHILS (test code = SEG) % 40-75 LYMPHOCYTE (test code = LYMPH) % 12.6-43.5 COMPREHENSIVE METABOLIC [id number] 09:14:00 Test Item Value Reference Range Interpretation [...] TOTAL (test code = ALKP) CBC W/AUTO [id number] 09:02:00 Test Item Value Reference Range Interpretation [...] CRITERIA (test code = MDIFF) GLUCOSE BEDSIDE [id number] 06:41:00 Test Item Value Reference Range Interpretation Comments GLUCOSE BEDSIDE TESTING (test code = 65 mg/dL 70-110 L GLUBED) COVID 19 INHOUSE [id number] 05:40:00 Test Item Value Reference Range Interpretation Comments COVID 19 INHOUSE AG NEGATIVE Negative Per manu facturer, (test code = negative result s should [id number]) be treated aspr esumptive and, if inconsi [...] co nsistent with COVID-19. - CT CHEST [id number] 03:30:00 [facility] : 1985 Sex: M Name: FIONA SANCHES JR [facility] : 1985 Age/S: 35 / M [address] Unit #: [id number] Loc: [place] [address] Phys: Scott Person MD Acct: [id number] Dis Date: Status: REG ER PHONE#: [phone] Exam Date: 10/06/2020 0245 FAX #: Reason:possible esophageal pneumatosis EXAMS: CPT: [id number] CT CHEST W/CONTRAST 62014 DICTATION LOCATION: 8 HISTORY: Male, 35 years [...] Report (CONTINUED) Name: FIONA SANCHES JR [facility] : 1985 Age/S: 35 / M [address] Unit #: [id number] Loc: [place] [address] Phys: Scott PersonTN Acct: [id number] Dis Date: Status: REG ER PHONE #: [phone] Exam Date: 10/06/2020 0245 FAX #: Reason: possible esophageal pneumatosisEXAMS: CPT: [id number] CT CHEST W/CONTRAST 07285 <Continued> (i.e. scleroderma or dermatomyositis). Infiltrative neoplasm [...] RT(R)(CT); CTDI: DLP: Trnscb Date/Time: 10/06/2020 (329) [email or web address] Orig Print D/T: S: 10/06/2020 (3) PAGE 2 Signed Report- CT NECK [id number] 03:11:00 [facility] : 1985 Sex: M Name: FIONA SANCHES JR : 1985 Age/S: 35 / M [address] Unit #: [id number] Loc: [place] [address] Phys: Scott Person MD Acct: [id number] Dis Date: Status: REG ER PHONE#: [phone] Exam Date: 10/06/2020 0250 FAX #: Reason:possible esophageal pneumatosis EXAMS: CPT: [id number] CT NECK W/CONTRAST 89168 EXAM: - CT NECK W/CONTRAST LOCATION: H57 [...] JR : 1985 Age/S: 35 / M [address] Unit #: [id number] Loc: [place] [address] Phys: Scott Person MD Acct: [id number] Dis Date: Status: REG ER PHONE #: [phone] Exam Date: 10/06/2020 0250 FAX #: Reason: possible esophageal pneumatosis EXAMS: CPT: [id number] CT NECK W/CONTRAST 19475 <Continued> CC: Technologist:Valentine Momin, RT(R)(CT); CTDI: DLP: Trnscb Date/Time: 10/06/2020 (310) [email or web address] Orig Print D/T: S: 10/06/2020 (3) PAGE 2 Signed Report BASIC METABOLIC [id number] 02:14:00 Test Item Value Reference Range Interpretation [...] (test code = CA) 7.8 MG/DL 8.5-10.1 L"
[2022-05-16] MEDS ORDERED: KETOROLAC 30 MG/ML INJ ONE (17:10)
[2022-05-16] MEDS ORDERED: LIDOCAINE 4% PATCH ONE (17:10)
--- NOTE | 2022-05-16 17:55 | RAD REPORT ---
EXAM DESCRIPTION: RAD - Ribs Left - 05/16/2022 5:27 pm CLINICAL HISTORY: L lateral ribs COMPARISON: Chest Single View dated 05/04/2022 FINDINGS/IMPRESSION: No acute fracture. No malalignment. No significant focal degenerative changes. 

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
[2022-05-16 18:17] VITALS: BP 127/69; TEMP 98; O2SAT 97
== END 2022-05-16 18:11 | disposition home or self-care (01) ==
LOC: ER 16:28
DX: R07.81 Pleurodynia (principal); F20.9 Schizophrenia, unspecified; I10 Essential (primary) hypertension
CPT/HCPCS: 71100; J2001; 96372; 99283

== ENCOUNTER 2022-05-17 16:09 | Emergency (ER) | payer OTHER ==
--- OUTSIDE RECORDS SUMMARY | 2022-05-17 16:16 | XMS REPORT | Continuity of Care Document ---
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 .8 Branch 2022-02-04 2022-02-04 Office Kamlesh Gal 1.2.840.8 [id number] Univers 13:30:00 14:38:59 Visit 63257.1.1 ity of 3.104.2.7 [place] .3.212705 Medica l .8 Branch 2022-02-04 2022-02-04 Travel 1.2.840.1 1.2.741.684 7976 6099 Univers 00:00:00 00:00:00 45981.1.1 350.1.13.10 ity of 3.104.2.7 4.2.7.3.698 [place] .3.251099 084.8 Medica l .8 Branch 2021-05-25 2021-05-26 Emergency Claudia, Janene [facility] 1.2.840.114 [id number] 18:28:00 00:07:00 Misa Carley 350.1.13.10 [place] 4.2.7.2.686 [place] [id number] 084 2020-12-19 2020-12-19 Orders Doctor NEGRITO 1.2.840.114 [id number] 00:00:00 00:00:00 Only Unassigned, NAMRATA 350.1.13.10 [place] [facility] 4.2.7.2.686 [id number] 009 2020-11-28 2020-11-28 Patient Sharon Bunn 1.2.840.114 [id number] 00:00:00 00:00:00 Outreach Micki Wilson 350.1.13.10 [place] 4.2.7.2.686 [id number] 403 2020-11-27 2020-11-27 Telephone JeffAngie coleman 1.2.283.900 [id number] [id number] 00:00:00 00:00:00 Gianni Teresa 350.1.13.10 [facility] 4.2.7.2.686 [id number] 093 2020-10-06 2020-10-06 Outpatient BEE Garcia [id number] [facility] 23:33:00 23:33:00 [facility] [id number] [facility] Results Test Description Test Time Test Comments Results Result Comments Source BASIC METABOLIC PANEL (NA, K, CL, CO2, GLUCOSE, BUN, 2022-04 10:41:04 CREATININE, [place]) Test Item Value Reference Range Interpretation Comme nts NA (test code = 1178362195) 141 mmol/L 135-145 K (test code = 3257050929) 4.1 mmol/L 3.5-5 CL (test code = 6407502992) 113 mmol/L 98-108 H CO2 TOTAL (test code = 3687694739) 26 mmol/L 23-31 AGAP (test code = 9807783271) 2-16 BUN (test code = 2524390742) 2 mg/dL 7-23 L GLUCOSE (test code = 0672704319) 77 mg/dL 70-110 CREATININE (test code = 0.43 mg/dL 0.6-1.25 L 9800250519) CALCIUM (test code = 7548598075) 7.5 mg/dL 8.6-10.6 L eGFR (test code = 4211157067) mL/min/1.73m2 LU (test code = LU) Association [...] tests). Lab Interpretation (test code = Abnormal 11790-7) [facility] METABOLIC PANEL (NA, K, CL, CO2, GLUCOSE, BUN, CREATININE, CA)2022-04-29 10:41:04 Test Item Value Reference Range Interpretation Comments NA (test code = 141 mmol/L 135-145 8052420933) K (test code = 4.1 mmol/L 3.5-5.0 1683207963) CL (test code = 113 mmol/L 98-108 H 0464884163) CO2 TOTAL (test code = 26 mmol/L 23-31 5832818937) AGAP (test code = 2-16 4850293054) BUN (test code = 2 mg/dL 7-23 L 4702012411) GLUCOSE (test code = 77 mg/dL 70-110 1041003577) CREATININE (test code = 0.43 mg/dL 0.60-1.25 L 9578064457) CALCIUM (test code = 7.5 mg/dL 8.6-10.6 L 4843981087) eGFR (test code = mL/min/1.73m2 7253261143) LU (test code = LU) Association of [...] tests). Lab Interpretation Abnormal (test code = 15795-3) [facility] 19[facility]02:20 Test Item Value Reference Range Interpretation Comments MAGNESIUM (test code = 5236258156) 1.7 mg/dL 1.7-2.4 Lab Interpretation (test code = Normal 76446-3) [facility] 19:02:20 Test Item Value Reference Range Interpretation Comments MAGNESIUM (test code = 6754391798) 1.7 mg/dL 1.7-2.4 Lab Interpretation (test code = Normal 91247-2) [facility] METABOLIC PANEL (NA, K, CL, CO2, GLUCOSE, BUN, CREATININE, CA)2022-04-28 17:52:13 Test Item Value Reference Range Interpretation Comments NA (test code = 142 mmol/L 135-145 0975032742) K (test code = 2.6 mmol/L 3.5-5 LL 0806243464) CL (test code = 109 mmol/L 98-108 H 0328524202) CO2 TOTAL (test code = 26 mmol/L 23-31 9999759420) AGAP (test code = 2-16 2887522157) BUN (test code = 3 mg/dL 7-23 L 2962187416) GLUCOSE (test code = 95 mg/dL 70-110 6545154820) CREATININE (test code = 0.57 mg/dL 0.6-1.25 L 8626575706) CALCIUM (test code = 7.6 mg/dL 8.6-10.6 L 3469795856) eGFR (test code = mL/min/1.73m2 0078333003) LU (test code = LU) Association of [...] tests). Lab Interpretation Abnormal (test code = 63256-9) [facility] METABOLIC PANEL (NA, K, CL, CO2, GLUCOSE, BUN, CREATININE, CA)2022-04-28 17:52:13 Test Item Value Reference Range Interpretation Comments NA (test code = 142 mmol/L 135-145 5056720029) K (test code = 2.6 mmol/L 3.5-5.0 LL 2985789609) CL (test code = 109 mmol/L 98-108 H 3446059698) CO2 TOTAL (test code = 26 mmol/L 23-31 1280345814) AGAP (test code = 2-16 9675664489) BUN (test code = 3 mg/dL 7-23 L 1951119767) GLUCOSE (test code = 95 mg/dL 70-110 3802457160) CREATININE (test code = 0.57 mg/dL 0.60-1.25 L 0737210995) CALCIUM (test code = 7.6 mg/dL 8.6-10.6 L 5172596000) eGFR (test code = mL/min/1.73m2 5410549243) LU (test code = LU) Association of [...] tests). Lab Interpretation Abnormal (test code = 76652-8) [facility] METABOLIC PANEL (NA, K, CL, CO2, GLUCOSE, BUN, CREATININE, CA)2022-04-28 17:52:13 Test Item Value Reference Range Interpretation Comments NA (test code = 142 mmol/L 135-145 7820312769) K (test code = 2.6 mmol/L 3.5-5.0 LL 0608901551) CL (test code = 109 mmol/L 98-108 H 6297445869) CO2 TOTAL (test code = 26 mmol/L 23-31 2234591604) AGAP (test code = 2-16 8071558757) BUN (test code = 3 mg/dL 7-23 L 8041750616) GLUCOSE (test code = 95 mg/dL 70-110 9118725360) CREATININE (test code = 0.57 mg/dL 0.60-1.25 L 8819412733) CALCIUM (test code = 7.6 mg/dL 8.6-10.6 L 0912911581) eGFR (test code = mL/min/1.73m2 1709599855) LU (test code = LU) Association of [...] tests). Lab Interpretation Abnormal (test code = 42958-6) [facility] WITHOUT [id number] 17:16:02 Test Item Value Reference Range Interpretation Comments WBC (test code = 6690-2) See_Comment [A utomated message] The system [employer] generated this result transmit annette reference range : 4.20 - 10.70 10*3/?L. The reference range was not used to interpret this result as normal/abnormal . RBC (test code = 789-8) See_Comment L [Au tomated message] The system [employer] generated this result transmit annette reference range [...] 777-3) See_Comment [Au tomated message] The system [employer] generated this result transmit annette reference range : 150 - 328 10*3/?L. The reference range was not used to interpret this result as normal/abnormal . MPV (test code = 10.7 fL 9.8-13 85540-0) RDW-CV (test code = 14.9 % 12.1-15.4 788-0) RDW-SD (test code = 48.9 fL 38.5-51.6 09394-7) NRBC x10^3 (test code = See_Comment [Au tomated message] 7714556442) The system [employer] generated this result transmit annette reference range : 10*3/?L. The reference range was not used to interpret this result as normal/abnormal . NRBC/100 WBC (test code See_Comment [Au tomated message] = 1474602809) The system [employer] generated this result transmit annette reference range : 0.0 - 10.0 /100 WBC s. The reference r alisson was not used to interpret this result as normal/abnormal . IPF % (test code = 7898103941) Lab Interpretation (test Abnormal code = 36240-4) [facility] WITHOUT [id number] 17:16:02 Test Item Value Reference Range Interpretation Comments WBC (test code = 6690-2) See_Comment [A utomated message] The system [employer] generated this result transmit annette reference range : 4.20 - 10.70 10*3/?L. The reference range was not used to interpret this result as normal/abnormal . RBC (test code = 789-8) See_Comment L [Au tomated message] The system [employer] generated this result transmit annette reference range [...] 777-3) See_Comment [Au tomated message] The system [employer] generated this result transmit annette reference range : 150 - 328 10*3/?L. The reference range was not used to interpret this result as normal/abnormal . MPV (test code = 10.7 fL 9.8-13.0 62128-4) RDW-CV (test code = 14.9 % 12.1-15.4 788-0) RDW-SD (test code = 48.9 fL 38.5-51.6 85899-7) NRBC x10^3 (test code = <0.01 See_Comment [Au tomated message] 6377314571) The system [employer] generated this result transmit annette reference range : 10*3/?L. The reference range was not used to interpret this result as normal/abnormal . NRBC/100 WBC (test code See_Comment [Au tomated message] = 3675134366) The system [employer] generated this result transmit annette reference range : 0.0 - 10.0 /100 WBC s. The reference r alisson was not used to interpret this result as normal/abnormal . IPF % (test code = 5440890578) Lab Interpretation (test Abnormal code = 92506-4) [facility] WITHOUT [id number] 17:16:02 Test Item Value Reference Range Interpretation Comments WBC (test code = 6690-2) See_Comment [A utomated message] The system [employer] generated this result transmit annette reference range : 4.20 - 10.70 10*3/?L. The reference range was not used to interpret this result as normal/abnormal . RBC (test code = 789-8) See_Comment L [Au tomated message] The system [employer] generated this result transmit annette reference range [...] 777-3) See_Comment [Au tomated message] The system [employer] generated this result transmit annette reference range : 150 - 328 10*3/?L. The reference range was not used to interpret this result as normal/abnormal . MPV (test code = 10.7 fL 9.8-13.0 02744-0) RDW-CV (test code = 14.9 % 12.1-15.4 788-0) RDW-SD (test code = 48.9 fL 38.5-51.6 93100-2) NRBC x10^3 (test code = <0.01 See_Comment [Au tomated message] 6942449999) The system [employer] generated this result transmit annette reference range : 10*3/?L. The reference range was not used to interpret this result as normal/abnormal . NRBC/100 WBC (test code See_Comment [Au tomated message] = 7090597129) The system [facility] generated this result transmit annette reference range : 0.0 - 10.0 /100 WBC s. The reference r alisson was not used to interpret this result as normal/abnormal . IPF % (test code = 7031296730) Lab Interpretation (test Abnormal code = 28536-3) [facility] [id number] 22:31:26 Test Item Value Reference Range Interpretation Comments K (test code = 5802488018) 3.3 mmol/L 3.5-5 L Lab Interpretation (test code = Abnormal 20905-8) [facility] METABOLIC PANEL (NA, K, CL, CO2, GLUCOSE, BUN, CREATININE, CA)2022-04-27 22:31:26 Test Item Value Reference Range Interpretation Comments NA (test code = 144 mmol/L 135-145 3283546669) K (test code = 3.3 mmol/L 3.5-5 L 4156209389) CL (test code = 112 mmol/L 98-108 H 4799444445) CO2 TOTAL (test code = 27 mmol/L 23-31 6760988948) AGAP (test code = 2-16 3981229523) BUN (test code = 5 mg/dL 7-23 L 5041086553) GLUCOSE (test code = 118 mg/dL 70-110 H 2024918057) CREATININE (test code = 0.63 mg/dL 0.6-1.25 9155094050) CALCIUM (test code = 7.6 mg/dL 8.6-10.6 L 7602317220) eGFR (test code = mL/min/1.73m2 6618192870) LU (test code = LU) Association of [...] tests). Lab Interpretation Abnormal (test code = 25111-7) [facility] [id number] 22:31:26 Test Item Value Reference Range Interpretation Comments K (test code = 8675959871) 3.3 mmol/L 3.5-5.0 L Lab Interpretation (test code = Abnormal 60585-4) [facility] [id number] 22:31:26 Test Item Value Reference Range Interpretation Comments K (test code = 0900987423) 3.3 mmol/L 3.5-5.0 L Lab Interpretation (test code = Abnormal 97582-5) [facility] METABOLIC PANEL (NA, K, CL, CO2, GLUCOSE, BUN, CREATININE, CA)2022-04-27 22:31:26 Test Item Value Reference Range Interpretation Comments NA (test code = 144 mmol/L 135-145 9462197600) K (test code = 3.3 mmol/L 3.5-5.0 L 0122103041) CL (test code = 112 mmol/L 98-108 H 4077277025) CO2 TOTAL (test code = 27 mmol/L 23-31 4385210410) AGAP (test code = 2-16 1526799669) BUN (test code = 5 mg/dL 7-23 L 8281853243) GLUCOSE (test code = 118 mg/dL 70-110 H 8285114953) CREATININE (test code = 0.63 mg/dL 0.60-1.25 9363238597) CALCIUM (test code = 7.6 mg/dL 8.6-10.6 L 1807690679) eGFR (test code = mL/min/1.73m2 6169970160) LU (test code = LU) Association of [...] tests). Lab Interpretation Abnormal (test code = 21509-0) [facility]2022-07-05 21:22:49 Test Item Value Reference Range Interpretation Comments MAGNESIUM (test code = 2739228546) 2.1 mg/dL 1.7-2.4 Lab Interpretation (test code = Normal 54704-2) [facility]2022-07-05 21:22:49 Test Item Value Reference Range Interpretation Comments MAGNESIUM (test code = 5034490874) 2.1 mg/dL 1.7-2.4 Lab Interpretation (test code = Normal 32660-2) [facility]2022-07-05 21:22:49 Test Item Value Reference Range Interpretation Comments MAGNESIUM (test code = 2956397347) 2.1 mg/dL 1.7-2.4 Lab Interpretation (test code = Normal 32695-7) [facility] (NA, K, CL, CO2, GLUCOSE, BUN, CREATININE, CA)2022-04-27 15:50:29 Test Item Value Reference Range Interpretation Comments NA (test code = 143 mmol/L 135-145 5226705910) K (test code = 2.4 mmol/L 3.5-5 LL 9532215625) CL (test code = 110 mmol/L 98-108 H 1616879791) CO2 TOTAL (test code = 28 mmol/L 23-31 4461827031) AGAP (test code = 2-16 8721763201) BUN (test code = 4 mg/dL 7-23 L 0596204508) GLUCOSE (test code = 56 mg/dL 70-110 L 9197189425) CREATININE (test code = 0.65 mg/dL 0.6-1.25 7184346251) CALCIUM (test code = 7.7 mg/dL 8.6-10.6 L 0359845060) eGFR (test code = mL/min/1.73m2 5999999947) LU (test code = LU) Association of [...] tests). Lab Interpretation Abnormal (test code = 12292-0) [facility] METABOLIC PANEL (NA, K, CL, CO2, GLUCOSE, BUN, CREATININE, CA)2022-04-27 15:50:29 Test Item Value Reference Range Interpretation Comments NA (test code = 143 mmol/L 135-145 9772518290) K (test code = 2.4 mmol/L 3.5-5.0 LL 8514353411) CL (test code = 110 mmol/L 98-108 H 1001594612) CO2 TOTAL (test code = 28 mmol/L 23-31 4647096995) AGAP (test code = 2-16 8187932899) BUN (test code = 4 mg/dL 7-23 L 5633898417) GLUCOSE (test code = 56 mg/dL 70-110 L 2718768437) CREATININE (test code = 0.65 mg/dL 0.60-1.25 2211587623) CALCIUM (test code = 7.7 mg/dL 8.6-10.6 L 3515470069) eGFR (test code = mL/min/1.73m2 6968170865) LU (test code = LU) Association of [...] tests). Lab Interpretation Abnormal (test code = 51133-6) [facility] [id number] 23:23:37 Test Item Value Reference Interpretation Comments Range TROPONIN I (test 0.007 ng/mL See_Comment [Automated code = 9824614939) message] The system which generated this result [...] biotin. Lab Interpretation Normal (test code = 15168-1) [facility]OLIC PAN[facility] ([id number])2022-04-26 23:23:37 Test Item Value Reference Range Interpretation Comments NA (test code = 143 mmol/L 135-145 2615230547) K (test code = 2.3 mmol/L 3.5-5 LL 3062802461) CL (test code = 107 mmol/L 98-108 7849193319) CO2 TOTAL (test code = 27 mmol/L 23-31 0053223177) AGAP (test code = 2-16 3985379596) BUN (test code = 4 mg/dL 7-23 L 4421044298) GLUCOSE (test code = 86 mg/dL 70-110 5627255581) CREATININE (test code = 0.73 mg/dL 0.6-1.25 6929512744) TOTAL BILI (test code = 0.7 mg/dL 0.1-1.2 7618598830) CALCIUM (test code = 7.6 mg/dL 8.6-10.6 L 4276085752) T PROTEIN (test code = 6.5 g/dL 6.3-8.2 4696683062) ALBUMIN (test code = 2.7 g/dL 3.5-5 L 9181577791) ALK PHOS (test code = 96 U/L 34-122 8103625090) ALTv (test code = 13 U/L 5-50 1742-6) AST(SGOT) (test code = 22 U/L 13-40 2753427922) eGFR (test code = mL/min/1.73m2 5526012168) LU (test code = LU) Association of [...] tests). Lab Interpretation Abnormal (test code = 17238-6) [facility] [id number] 23:23:37 Test Item Value Reference Interpretation Comments Range TROPONIN I (test 0.007 ng/mL See_Comment [Automated code = 4921241733) message] The system which generated this result [...] biotin. Lab Interpretation Normal (test code = 02104-6) [facility]. METABOLIC PANEL ([id number])2022-04-26 23:23:37 Test Item Value Reference Range Interpretation Comments NA (test code = 143 mmol/L 135-145 7950890413) K (test code = 2.3 mmol/L 3.5-5.0 LL 6476303167) CL (test code = 107 mmol/L 98-108 9388996118) CO2 TOTAL (test code = 27 mmol/L 23-31 6112157328) AGAP (test code = 2-16 4203996933) BUN (test code = 4 mg/dL 7-23 L 6467084775) GLUCOSE (test code = 86 mg/dL 70-110 8155994081) CREATININE (test code = 0.73 mg/dL 0.60-1.25 9376968881) TOTAL BILI (test code = 0.7 mg/dL 0.1-1.0 8795793386) CALCIUM (test code = 7.6 mg/dL 8.6-10.6 L 4140986146) T PROTEIN (test code = 6.5 g/dL 6.3-8.2 5811452978) ALBUMIN (test code = 2.7 g/dL 3.5-5.0 L 1467401137) ALK PHOS (test code = 96 U/L 34-122 3133331012) ALTv (test code = 13 U/L 5-50 1742-6) AST(SGOT) (test code = 22 U/L 13-40 4596955876) eGFR (test code = mL/min/1.73m2 6885715181) LU (test code = LU) Association of [...] tests). Lab Interpretation Abnormal (test code = 00841-4) [facility] [id number] 23:23:37 Test Item Value Reference Interpretation Comments Range TROPONIN I (test 0.007 ng/mL See_Comment [Automated code = [id number]) message] The system which generated this result [...] biotin. Lab Interpretation Normal (test code = 17372-2) [facility]. METABOLIC PANEL (85220)2022-04-26 23:23:37 Test Item Value Reference Range Interpretation Comments NA (test code = 143 mmol/L 135-145 9834718748) K (test code = 2.3 mmol/L 3.5-5.0 LL 4900121086) CL (test code = 107 mmol/L 98-108 3636390770) CO2 TOTAL (test code = 27 mmol/L 23-31 1843268336) AGAP (test code = 2-16 6322401804) BUN (test code = 4 mg/dL 7-23 L 1433683547) GLUCOSE (test code = 86 mg/dL 70-110 3121878564) CREATININE (test code = 0.73 mg/dL 0.60-1.25 0156972376) TOTAL BILI (test code = 0.7 mg/dL 0.1-1.6 3692271165) CALCIUM (test code = 7.6 mg/dL 8.6-10.6 L 7972466129) T PROTEIN (test code = 6.5 g/dL 6.3-8.2 1218625733) ALBUMIN (test code = 2.7 g/dL 3.5-5.0 L 3456964478) ALK PHOS (test code = 96 U/L 34-122 7926645301) ALTv (test code = 13 U/L 5-50 1742-6) AST(SGOT) (test code = 22 U/L 13-40 2086506325) eGFR (test code = mL/min/1.73m2 5656005767) LU (test code = LU) Association of [...] tests). Lab Interpretation Abnormal (test code = 08497-0) [id number] 23:20:37 Test Item Value Reference Range Interpretation Comments NT-proBNP (test code 393 pg/mL See_Comment H [Autom ated = [id number]) message] The system which generated this result transmitted reference range : <=125. The reference range was not used to interpret this result as normal/abnormal . LU (test code = LU) Biotin has been reported to cause a negative bias, interpret results relative to patient's use of biotin. Lab Interpretation Abnormal (test code = 29541-6) [facility] [id number] 23:20:37 Test Item Value Reference Range Interpretation Comments NT-proBNP (test code 393 pg/mL See_Comment H [Autom ated = [id number]) message] The system which generated this result transmitted reference range : <=125. The reference range was not used to interpret this result as normal/abnormal . LU (test code = LU) Biotin has been reported to cause a negative bias, interpret results relative to patient's use of biotin. Lab Interpretation Abnormal (test code = 13634-5) [facility] [id number] 23:20:37 Test Item Value Reference Range Interpretation Comments NT-proBNP (test code 393 pg/mL See_Comment H [Autom ated = [id number]) message] The system which generated this result transmitted reference range : <=125. The reference range was not used to interpret this result as normal/abnormal . LU (test code = LU) Biotin has been reported to cause a negative bias, interpret results relative to patient's use of biotin. Lab Interpretation Abnormal (test code = 39980-4) [facility] 23:11:39 Test Item Value Reference Range Interpretation Comments LIPASE (test code = 5800957594) 78 U/L 0-220 Lab Interpretation (test code = Normal 77314-8) [facility] 23:11:39 Test Item Value Reference Range Interpretation Comments LIPASE (test code = 5661456452) 78 U/L 0-220 Lab Interpretation (test code = Normal 54726-7) [facility] 23:11:39 Test Item Value Reference Range Interpretation Comments LIPASE (test code = 5582461798) 78 U/L 0-220 Lab Interpretation (test code = Normal 64948-9) [facility] WITH [id number] 22:55:18 Test Item Value Reference Range Interpretation Comments WBC (test code = See_Comment [Automated 4090-2) message] The sy stem which generated this result transmitted reference range : 4.20 - 10.70 10*3/?L. The reference range was not used to interpret this result as normal/abnormal . RBC (test code = See_Comment L [Automated 259-8) message] The sy stem which generated this [...] RDW-SD (test code = 45.2 fL 38.5-51.6 41352-0) RDW-CV (test code = 14.3 % 12.1-15.4 788-0) PLT (test code = See_Comment [Automated 777-3) message] The sy stem which generated this result transmitted reference range : 150 - 328 10*3/ ?L. The reference r alisson was not used to interpret this result as normal/abnormal . MPV (test code = 10.5 fL 9.8-13 04798-0) NRBC/100 WBC (test See_Comment [Automat ed code = 7022557709) message] The system which generated this result transmitted reference range : 0.0 - 10.0 /100 WBCs. The refer ence range was not u sed to interpret th is result as normal/abnormal . NRBC x10^3 (test code See_Comment [Auto mated = 6812705719) message] The s ystem which generated this result transmitted reference range : 10*3/?L. The reference range was not used to interpret this result as normal/abnormal . GRAN MAT (NEUT) % 73.6 % (test code = 770-8) IMM GRAN % (test code 0.30 % = 4673834022) LYMPH % (test code = 20.6 % 736-9) MONO % (test code = 4.9 % 5905-5) EOS % (test code = 0.3 % 713-8) BASO % (test code = 0.3 % 706-2) GRAN MAT x10^3(ANC) 6.49 10*3/uL 1.99-6.95 (test code = 5672955241) IMM GRAN x10^3 (test 0.03 10*3/uL 0-0.06 code = 1598797702) LYMPH x10^3 (test code 1.82 10*3/uL 1.09-3.23 = 731-0) MONO x10^3 (test code 0.43 10*3/uL 0.36-1.02 = 742-7) EOS x10^3 (test code = 0.03 10*3/uL 0.06-0.53 L 711-2) BASO x10^3 (test code 0.03 10*3/uL 0.01-0.09 = 704-7) Lab Interpretation Abnormal (test code = 35302-2) [facility] WITH [id number] 22:55:18 Test Item Value Reference Range Interpretation [...] RDW-SD (test code = 45.2 fL 38.5-51.6 07945-8) RDW-CV (test code = 14.3 % 12.1-15.4 788-0) PLT (test code = See_Comment [Automated 777-3) message] The sy stem which generated this result transmitted reference range : 150 - 328 10*3/ ?L. The reference r alisson was not used to interpret this result as normal/abnormal . MPV (test code = 10.5 fL 9.8-13.0 85917-2) NRBC/100 WBC (test See_Comment [Automat ed code = 0953714056) message] The system which generated this result transmitted reference range : 0.0 - 10.0 /100 WBCs. The refer ence range was not u sed to interpret th is result as normal/abnormal . NRBC x10^3 (test code <0.01 See_Comment [Auto mated = 5478770217) message] The s ystem which generated this result transmitted reference range : 10*3/?L. The reference range was not used to interpret this result as normal/abnormal . GRAN MAT (NEUT) % 73.6 % (test code = 770-8) IMM GRAN % (test code 0.30 % = 3530337390) LYMPH % (test code = 20.6 % 736-9) MONO % (test code = 4.9 % 5905-5) EOS % (test code = 0.3 % 713-8) BASO % (test code = 0.3 % 706-2) GRAN MAT x10^3(ANC) 6.49 10*3/uL 1.99-6.95 (test code = 4605604566) IMM GRAN x10^3 (test 0.03 10*3/uL 0.00-0.06 code = 0196871423) LYMPH x10^3 (test code 1.82 10*3/uL 1.09-3.23 = 731-0) MONO x10^3 (test code 0.43 10*3/uL 0.36-1.02 = 742-7) EOS x10^3 (test code = 0.03 10*3/uL 0.06-0.53 L 711-2) BASO x10^3 (test code 0.03 10*3/uL 0.01-0.09 = 704-7) Lab Interpretation Abnormal (test code = 51924-3) [facility] WITH [id number] 22:55:18 Test Item Value Reference Range Interpretation Comments WBC (test code = See_Comment [Automated 2990-2) message] The sy stem which generated this result transmitted reference range : 4.20 - 10.70 10*3/?L. The reference range was not used to interpret this result as normal/abnormal . RBC (test code = See_Comment L [Automated 639-8) message] The sy stem which generated this [...] RDW-SD (test code = 45.2 fL 38.5-51.6 46026-4) RDW-CV (test code = 14.3 % 12.1-15.4 788-0) PLT (test code = See_Comment [Automated 777-3) message] The sy stem which generated this result transmitted reference range : 150 - 328 10*3/ ?L. The reference r alisson was not used to interpret this result as normal/abnormal . MPV (test code = 10.5 fL 9.8-13.0 17665-3) NRBC/100 WBC (test See_Comment [Automat ed code = 0108147795) message] The system which generated this result transmitted reference range : 0.0 - 10.0 /100 WBCs. The refer ence range was not u sed to interpret th is result as normal/abnormal . NRBC x10^3 (test code <0.01 See_Comment [Auto mated = 1362494342) message] The s ystem which generated this result transmitted reference range : 10*3/?L. The reference range was not used to interpret this result as normal/abnormal . GRAN MAT (NEUT) % 73.6 % (test code = 770-8) IMM GRAN % (test code 0.30 % = 2297399734) LYMPH % (test code = 20.6 % 736-9) MONO % (test code = 4.9 % 5905-5) EOS % (test code = 0.3 % 713-8) BASO % (test code = 0.3 % 706-2) GRAN MAT x10^3(ANC) 6.49 10*3/uL 1.99-6.95 (test code = 2701843266) IMM GRAN x10^3 (test 0.03 10*3/uL 0.00-0.06 code = 7535187681) LYMPH x10^3 (test code 1.82 10*3/uL 1.09-3.23 = 731-0) MONO x10^3 (test code 0.43 10*3/uL 0.36-1.02 = 742-7) EOS x10^3 (test code = 0.03 10*3/uL 0.06-0.53 L 711-2) BASO x10^3 (test code 0.03 10*3/uL 0.01-0.09 = 704-7) Lab Interpretation Abnormal (test code = 70297-8) [facility] [id number] 16:42:42 Test Item Value Reference Range Interpretation Comments Case Report (test code Surgical Pathology ? ? = [id number]) ?Case: [id number] ? Authorizing Provider: ?Negrito Simeon MD ? Collected: ? 03/12/2022 1050 ?Ordering Location: ? ? [facility] ? ? ?Received: ?03/12/2022 1656 ? [facility] ?Pathologist: ? Carolin Ruiz MD ? Specimens: ? A) - APPENDIX ? B) - HERNIA SAC, RIGHT INGUINAL, RIGHT INGUINAL HERNIA SAC ? Final Diagnosis (test f3rrhEQiGCLjj4wkVYHvwE code = 9662573375) FuZzEwMzNcZnRuYdavidcdWMx IHtccnRmMVxhbnNpXGRlZm hnywgrKFPrMTK9hvQgQQNp YZT1RNA6PaHmYDSpLsj6WU LsYS1fbIbyuFz9pXxtWZCj cgX1cAIxOGght9ivMCQ5e6 xiliqpYJNyVDljYx8ajSWw gDbbRaEiHAUgTEa9iD73RL VooH5voETkIDybrjCwHyJ8 HObxBQRaBoX3HWHgzMIgWL H8aFsfIBXwzuydAtN3XXpc CWXksopePCz1JUkdIRWviH S5WTMuxGFqL0BhALAeGF5w mmx4WLX9NFlnLQPvVxM2DD UoxTIpOXIqoGhkVJulp072 HON9GiVeBHXvgpCwcCvpqN 6yJtTnQYjuNGQiUR7tNBNP SJ8TPNlgIFXDKCHSJTDENU 9NWTpccGFyICAgICAtIEJF TklHTiBBUFBFTkRJWCBUSV WLSERgE7bLJDXLYZWINHft T58SE1OMVHeCVcXQMiVNEF WCOTTFUM3KNTYYYWdqJTSR LU1VMOOAZNDMJHYtrTUkET KoymKVAyQoZ8mkYiYtxGZx SEVSTklBIFNBQywgRVhDSV JYE179HQLmato+MG5rxvw+ ED6bYSIYFjkJOsUGJWWMAR wWLMmWUUHHOR9XIASXYLPF C2RTLSHBE5XoMQcAS4YQDY iDQCiuCdADG5KXSCQbQ44R K2MRILiCPwgxQDOyriGtDX LlGOFiH03ZM8rCLFSQBLDO CZPOYEmBCy1MWPFFNHXhuA LkBGYiG1VbQMYtRGLqnfea czIyIExpbmRzYXkgQmlnaG EwOVYFYfCpWG9eHY4zCHPs BMT8JdFhZGXUNDGhpumlfl ZiVFHfsp26CHH2IzBtv0Z3 JGVoAcPoCWNpVQ9lzFicDB LkUE9hYKLnD5xqfQ0yste6 GmMmJVXwFgZ6JUVfhyZ7Wh e2UOAeWZkvz0puj3GsI7Tx jCShfCa2z0vdHRAfRxO4kT UdEGlpL0nvncCdaTZoVWGy CBi2dQseUiEuJUYit0fpev BcZmNoYXJzZXQwIENhbGli bbs4aH74SCLgpS0vkLXaIH gaclFuMbV2UXuyEMZmXdX9 ZJGuvPPxEFHjG7gpUUIiBR kwQURdNImynFRyBSR2xCbx r3O1pOXeiZMfwBbbQhLyTb AiMSJSr3LcZAr5kSssO1Nh FEGaFxQ8aQPpZMTzINzwVM WkKNZxmcJ5cF15SImawtI5 zTZby6Aaa96pc273aT2imL SxERU0YMSjVJZngGAoLHPs XDL1DQCeuWGrC9prEPZhIP 5qdfbpKFnkSGrxDRExnOO8 JNSabFKhT7RsXDBzNBrfRF Ntttn5QxUdIi5ltXLsgLyx TTkre5lnb7gulFUaTjs9VA EvOdFvVsdvTOtms3Ljp5bc SSPqdm6pIZS5xWJkiYijs2 S9xIMtXHIvdRLefeIvMDAl JkE2CWzjIK2vao26ZTDqWW Z9sp5dmBZsjHqhmaAlwSRc XQemC2CyVYVdy295AJQtA7 RxIRRth9J6rdHsCtOgMJYx oUZ1fvK0DBEdRJo6kMYvcp W6yfAjjJBcC5poyJ8qGZVg RE7sqrasb0nkNVyzIMuiCM UjtTQ7ukQ2LEFcyZPxK2Nr tL5uNUFfTWjcFTJlglr6Ma NlUz2brMFyxDozECzwHcip YWdlXHBnbmNvbnRccGduZG VjXHBsYWluXHBsYWluXGYw PILvDqIumRznlBupuT9xZm KiRtFeGBflRC9bUOOtA6an rIAvSMZvXSZmD8lhOlSzrJ 9jaFxmMVxjZjJcZnMyMFxw YXIgSSBoYXZlIHBlcnNvbm EpqKfrcoV2fRY1LNOfAAkm SLThNRDcuVFcth7lhBhqWZ NfLH2yBMGjyjEtQIwhwQjy DUfwNUJ3XXGnjTHseIRptK FkZSBieSByZXNpZGVudHMs VSMcqWxas1Wka2NreDX3kI 2og9irb1BoHMMmdIV6MA15 kwJ0bS8nDQDmCA1uMJIcUT 9fyRVvdWIzZJZqc18jbWgx cyByZXBvcnQuXHBsYWluXG YyXGZzMjhcbGFuZzEwMzNc aGljaFxmMlxkYmNoXGYyXG piV2tdXiXdIgIkZCnxWXD6 cAxvovStGVrnv8KxD5GjVq AwMFxhbnNpXGRlZmxhbmcx JTRhQRQ1qvDvJWTaFCxtLS RcHUjkQh4cqHNvfYkqFoLk IQIjm2dfluHNVFwaYlYlZ0 89VGLlMFrre3nwn7PqJIPp wMUjb6E8HHNXhbetrYw1gY mqY08ph8B6CbenM0hrAOWe JOJjU5IjUL5tHGAxHhs5EP S9ELQ7QLKuJZKdL0AcSF4u FKTvzWFrHWq2r7fmqLklIT XoAGC2l6euASnjcfQ7BL3t uf5maZw3x4ulaxZaVMHzAH IvlAVGZYGgW3MwnDqxPi3z yZd9oDqnTzisYZZ6Czy3TZ 4cjm54qyo6aTdbNIWuszie YcV0FFhwOZTmatsuBHp5MT qbTUOwwLP3QPIepLTbI0Cs DTAeIJ7jhvr3JHE2MKnrVI HjZuD2JBUhqAHoHGQyqMxd GVjht868GWO1JcXtMF5uK1 Xwp8A1oS4xuTLcNZJytGFl MsWyZDTduo6egPNdCNmpk5 TbS48bgOB2UBozr1xpHH4v AgV6jrCtMJgpy1trvP6bPo P9DCvfGX3yck88TVVxLPV1 km8ryXSixJuvfdKilTBxMG xmU2RvQZApd965SJAlH7Ul FKZpx7O1psDjXbIlCGIpjV F4taB7MOTqHAz2xVEhzbM6 uoFwiZDcV5ovfX0eCXAwDF 3qaqeva6fcDUypNZonOTBc rWF5bkZ1ALVbpIAcE5YopS 0hWAVuWZvrQQTnryj0YyJt Sm0cvSJvbKiwTVegCkzwVT dlXHBnbmNvbnRccGduZGVj XHBsYWluXHBsYWluXGYwXG KrVlQywSDtVJmbb6XailLd pQkuIUQiWGk6fgBsdafkpI x2sOGyhCllUAGorMdblZ9u JzVjGhQuMGbwTE4tUEByI1 bqePRmOZRfIWTfH3dqOyWm eL9nvQaxMGgcAaIiDnPwNT xsdHJjaFxwYXIgSSBoYXZl OTJucnRiwdBqgCivcbG7hP B6BMAwPLpqVSWrMKXelJDx gg5yoEvkDZZeSF0vVRJaxp UuEGkdwCaxCBrwXAI5ISSy bWVudHMgbWFkZSBieSByZX FsYIHmlQTsSHFajUggl1Nu t6PfrQN7iM5vl5gni1VmKV AezHU6JR24gtX7mK2yWVNk AB1oFZQiLD0gjMMhsHNdKG Odn61jpNstadZrZOFmpjYs XHBsYWluXGYxXGZzMjBcbG FuZzEwMzNcaGljaFxmMVxk OuKoVJBjRUpjI7oaUsWjK8 YyXGZzMjBccGFyXHBhclxw WWIsl4ZrUwIml5npGXcqm0 ahaYh0WGroxYJputdpXOyq qcJ3AQGzTOzfFKSoKOQuOQ RcbGFuZzEwMzNcaGljaFxm DAefNhAuHMGdSWxaV0emSh LpD0SgJMEzLXIyaSUdA2eb EGO1hD8wc5ujg5XgeXAhEx Hbz1uoxkVsUPMzfFSmppEx tFMbPOPbq4SwAQGyLOIaGV UONd2SNRPvwFMyF1v6qPIE BK6oyPJxLUQuOAMdF1NgNq HLbyVhw2L8AOQxtXMtAIRN BFTvaJMlC4o4vVnjOWvjDg b8MuGbyCgujP5wJbMbRhRi NOlxMT5fAENwE3eukUZmWG OeWKTxS6dkMoBbqS1sfGnz MVxjZjJcZnMyMFxsdHJjaF kdXXH6kV== Clinical Information RIGHT INGUINAL HERNIA (test code = 6885229848) Gross Description (test g3ngsJHrSBGazWIKQRYzC3 code = 5528186101) ujylLtZZFkdBDxU2Zvjemn AGcuVK4oIC8dsOrqnESgaE HnWT3YLRJjKlUbABWbbGMj otGkByTeBQFerZEvuSU2UQ TvSB2pgzvuSJwqPEolYMMw ybI9FTTpcMMzV2NrEGLoVK 9xeqefOUY6XVazrC8ibhUN RvpdGw1sfPTwnShcSzCiSj NoYXJzZXQwXGZuaWwgQXJp KBx2nC8CXrlwLIC8SVPSWo ahELVyTA8Yz7kiZQOtuVWo OUI7ATmmaYWnHTLsEOXfRE y0RRCgAQurxASjTT4ziTnb VgdujRifd8FyqOFzEPwuGG NgLJNkQVixJVFqJZ8XOxDw VTK8RUoxPEvtRPh3CIh0ZF 9WUyAiICAxODgyOTUyMSIg QVf8CPpsJU4AXVZ9XtF2ET O0LgahCCNyCoepABv6ECNa XFxmIEFyaWFsIFxcZnMgMT PsKWvyaYLtON2scYwpjZVb blxmczIwIFNQRUNJTUVOIE FhqPKrPM7KPJYfKHrbLMSi lRJDMHV4XX8vXTXJOnyqgT ElCVDkrTcwJDwswP6kZE0W BHq2ovPyKXGjEeLmF7PpL5 owTV1uUNEklrDsYFQbmIMm ACNfcsSch9KcZErsojTvFA JlbGVkIHdpdGggdGhlIHBh uEnkecCsxtNsMA5dAOGKQQ JojS3pIWZmOwMfiHNdMAb3 StgrTG8qYSNrplQbx0LmVF 9mIGFuIGludGFjdCwgdmVy qGrjt4ScQHZvyDNwGHj7EB q3PcBlP90vxS0okKPuQ4Bs COrhXY24EGNvIZLrfTOzji MapSDzZKVjqvjqr5g3iDKr sSHfH2mkBEGdZVGeZMVxFG 4irKmsRR2xSESfV8E5kXKc uWieGCRoWNDlS4Xlp17rwB XoD4jtCsHEtEHsh4Cmu1Ho KKnxUFFfke0vsH1aXVSaGS GwznEni14aibTvcHs3BNNm f994xVA1yKEbKUMjpgakt7 GvVFE2JMGoTUuxXaIYoAGy o4SwX0ehLK5csJLcv0QoqC DjzWpif2RxzZipsiBfKKXf FSRhrlQkpKC0NK2wrGaixn HwgVZlt1UwLaXqXRIoPG0e HKZuvXEjSY1rnrOdL6tvGd Tysc6uOSPxehXfdB05IKCu NSBjbSBpbiBkaWFtZXRlci U1hMS0TXDfucXjnN8mVWGt F24pfR21daSoiT54okZol3 Hho00eyQT8XI0wZeEho70m WxIuCSuftDW1GHKrFKhgPQ 0mNWSplfYxtvS3mP4ibgNd yhOcK5Udq7UrjEUmEMUpeI phxNCtWtEZERH2gF2pynK0 byBpbmNsdWRlIHRoZSBlbi OoZMPtIVTcl3RtrFpkehUv JUTdiT9tNPagc6FxRXVabX UpLCByZXByZXNlbnRhdGl2 TMTkbp6oth2gIYZ2iU2tMR BxnxToMpkcUZX4EODswIzo EALvQPYjpKYrkWM2QALdcW 7pZPBhAXfrbXhseN5mIYXl B35nj2VLj4TsNMUnGKidb1 ztkKpru2HucAItCRulHGXf uXNkOIvpmO7sOvAzm8xteM r4WMgpwtJ4HQWvcm0AZtlt GfoceYtdi6LwnZXjAFvvRT RfKTGgTUwxJMUtQL6IHvUy ESV0OEehJJdkFBy4UMd4RL 4RNbOyOJMdCGxaMYm4SXGz AEz4GEjpRA7WRGL9BtI3PV K6ARZpFFEnYyxgXIk0JOHu XFxmIEFyaWFsIFxcZnMgMT YbXPjsqUStDJ3owDpxpmYn IFNQRUNJTUVOIEJccGFyIA 9XXUMzOImdAUPnoTXGUCQ9 SH6xMOBBVaxdpNVkVYPzgH pqPVzopS0mSY0SDPb4pdIj ZFUhAuTcH5SlL8vrQB4tAe BpcyByZWNlaXZlZCBpbiBm f9BbLLjactOtKQUezKYlEU dpdGggdGhlIHBhdGllbnQn gaEuUJ7lPKNLZOAfyS3xCD YaWnBrzQqyfFIhago5cK6h fRLyQQIfkOStn4UgCrqnPK 0dJSPwmkAyn7IiRQ8sVBJh zULwIGHqdhaff6KkH6UxFG Xol73leXQ0qHUyrVQzKgIx B32jafGpQBArVSY9POZuIT J3JXNiJhQfqElxw1ipK5tb xJWzo7KvqXKqbPexh6XezZ lvbmVkIHRvIHJldmVhbCB0 PB2tdFpbrvYbHZ3loiAwu1 TjNXT8nMQmxGEvKWTssa0b KXZolQPgo2ZwsMO6vXKgNR TmD3Day21hMJCyKTNqnVWj yKQ9YXImmX0nVbCvMGIheo LLCxmnSFZpCNhKVJL7HAFa amVzdGthLCBQQSAoQVNDUC kNClxwbGFpblxlcGljTmVz yVLrYaUgiWyatV30MPSwfA GwMEY3NY3eYCDmufofTTBk AXYyQTX0YGutpY77xDGhGQ KqRPArhHYmyC3MPUSvLXV2 INwefN08pPZqQJ8HYDRbFE P5MFDckPLdQCJ5RO2dcQ9S fQ== Disclaimer (test code = n6poaVTrITFmv0xcKPZjsV [id number]) FuZzEwMzNcZnRuYmpcdWMx UYhulpAxLLrmd8BlX2QcXc AwMFxhbnNpXGRlZmxhbmcx IKVnQYF8yhWaRIRnBInbTU ByIDzqYm2afWWxlMmcPbWe DRMeu9vnxxWZDXkuGcCaA6 36IMPhJFewe3bzb2EzUMOd dSCnx7V5ONOMsupfnAb6oR xvM94je3X3BqenD4wpCSZa JQKvE4RdSY7bEXFvNzj9AB I7EGH9WTFhIYDdL6KeXV2n LGYuePVzKXx0g7tvcLnjYQ KhDKJ8e7tuSApqbqKaPH2j hy0ioIc0w8gpoyQxBDKtKB UmgHUTQFArO4IogMjlNi1p hDp0uAefMbumCOY3Coq1VA 9nkq96nss2rNoyPYQfmydr QtV3GUvlKRIcrfmpLTu7QM nxAUYqqYV7OEHuuKZpP1Rh VDOiRD7rfmj6UCL9QPbgMS NyFxH3QPDzuMMnLJSedQvn VUapj059VGC0ObAiOM0tQ4 Mjj9T2oQ8ubXEvYZSneYOx GoZxEBQjyx0mpEVsGLska0 GlXFJ1isI1tIHxaINgDKRl LF24Dndgg5JzTelyg6GzT0 1esGK1JZxhg5utLK8sLbE4 qgAfVRisg2dboH4fWkE0QK cdTC2hUY6cXYAwxJ4lpzkp XHBnYnJkcmhlYWRccGdicm LbNg1hjAtdTLP1CFyyK9mn nO5jPdZ5CWmgR2dqyT4nIC i6TVeilAJ0EMExtC6oQW3n fxgzh8rmYDieSYhcOWLqvv F0avT5ZVJqkGUjU0FjaB1d HVVzOR5hqrftr8mbSII8GF geTAQiKLV4GtRjDFRkw5Xo ton8AbQju2JixMMcZKiyU9 3ey754RGCklcSuF4pmcIKx fguynNAduswlIIgsrqZ9LT OhttLji3XoRJOrEUS5LNvy EUaxjDKrQTSzwGzpy2ptS1 RscGFyXHBsYWluXGYxXGZz MjBcbGFuZzEwMzNcaGljaF edVZwtLsGtYHKsNJylO6cc VlGcA9AoIACnJkRyxMFoW0 ggVGhpcyByZXBvcnQgbWF5 NSzjD8y5JSTecaDwaJg4yu LnMcYdHJUtCFU7RVgdwOQp GCIhn6MxjidqhPGeFv8eiV WuWEGpyV9hSKXwLPMzUCnh LU1bkBl3KMFBrKPymQQzQm WNZVPkZI06kiUnWKEPohkf v6X6ZExxFUMhi2CgzICyJ6 hzh2CrDESmn22vAB1og0C1 g2jnUBA1BG8vv4RdDSZeaT HojWAaNWNxd1Hggjori7Ym KCLhlrJjo5NtMHAohcCrlP ZgLSRbyrOqbr6zjuPtDGWh UUGpQ4OxvwzceSoaylUxNW Hkfi6shfVyKTN9ZZRDQKTv DHYos0InbQ7dfIRBHLI2mY Tben4wceOPuKWtYUOsrc39 FOUxGH5vN3osFHPiNSTylc IlfOFcy1LjISTvjEU5yJIp GS0AFqKJs52oCVEtPZFJdl BwFASfpCdbqVK6lhF6bI5k IChGREEpLlx+IFRoZSBGRE QsVM0jlmQcr5TqpaMlqGmv KFXhmHYxh2AnrXFub2IzuB mho3EjiTRfkOYuUV7fWBJs clxwYXIgVVRNQiBMYWJvcm S2g8VtTAIjUGPiUVG2eObx vef2JNFomE7hNCApK3ptrz nuSRjrJEQnz7AxgB4stOOF kJCxs4LpbPZsuTGIcQAhBJ 3xodPoMYjXOInSBBX5gdQq RQAxn0ZlIRblW7fiC35uyC xdtCn6vBU4KQI9jR5oOxq+ IFxwYXJccGFyIEFwcHJvcH EjAAWpjTqvayMuX8FzhfJe jT0fsCQtxyJjLT5qBV4hJ5 P8cIJyRTYhbqQtn9wuAWyw dmUgYmVlbiByZXZpZXdlZC Jbw1IzOMppXKY6FYylxmBb bmNsdWRpbmcgSCZFLCBTcG PtbLAgYGQ9JRzftxVswuCe GH8fjJ3zcQfwjC5xqCZmfW R7fbnlWJQgWNBinUwxHTEn MQ0nsUXbEFZwxmFQyBrfuW AfvV3dT3HqFWFsIVGzvn0n WYFweJ6gNQfky6BbqmhjNO SsWRZtSOKywlHewr9cLZHt hLTOTP5MITkowXCat8Gwqn EtH7vLNHV1YMOzFdCaWsfd TIGihUBilBXhFGEubg90IF JqtS8iyOqsQIYdwR3eiN7k cGwciS9nEaOwHmUjZMgvYM 3qJFDtS7hhyKXmDWOtNVTt L7qdBcMclI0lmJdqMRkzEq OyAiCbFXguCAL2mO== Embedded Images (test code = 2668310968) [facility] - This is a pre-surgical type and screen. ONCE [id number] 17:52:02 Test Item Value Reference Range Interpretation Comments ABO & RH (test AB POSITIVE Performed at [facility] code = 20) Laboratory Serv [facility] [place] [address]Tmti Free: [phone] A No. [id number] IAT (test code = Negative Performed a t [facility] 1185) Laboratory Serv [facility] [address] [place] [address] s [address]Bije Free: [phone] A No. [id number] [facility]2022-04-14 23:13:17 Test Item Value Reference Range Interpretation Comments PALB (test code = 45539-7) 20.2 mg/dL 18.0-45.0 Lab Interpretation (test code = Normal 75428-7) [facility] PAN[facility] (01739) (ALB,T.PRO,BILI T,BU/BC,ALT,AST,ALK PHOS)2022-02-04 23:05:58 Test Item Value Reference Range Interpretation Comments TOTAL BILI (test code = 2480774226) 0.4 mg/dL 0.1-1.1 BILI UNCON (test code = 3250314031) 0.2 mg/dL 0.1-1.1 BILI CONJ (test code = 9089345478) 0.0 mg/dL 0.0-0.3 T PROTEIN (test code = 9757841639) 7.7 g/dL 6.3-8.2 ALBUMIN (test code = 3968540719) 3.4 g/dL 3.5-5.0 L ALK PHOS (test code = 2568288881) 65 U/L 34-122 ALTv (test code = 1742-6) 11 U/L 5-50 AST(SGOT) (test code = 0445125701) 23 U/L 13-40 Lab Interpretation (test code = Abnormal 93872-6) [facility] [id number] 03:38:00 Test Item Value Reference Range Interpretation Comments AB HEPATITIS A IGM NEGATIVE (test code = HAVMAB) AG HEPATITIS B NEGATIVE SCREEN NEGATIVE SURFACE (test code = HBSAG) AB HEPATITIS B CORE NEGATIVE IGM (test code = HBCMAB) AB HEPATITIS C (test <0.1 RATIO <0.8 S/C RAT ION 0.0 - code = HCVAB) 0.9 NEGATIVE <0.8INDETERMINA TE 0.8 - 0.9POSITI VE >0.9 [id number] 16:06:00 Test Item Value Reference Range Interpretation Comments SURG (test code = SURG) RUN DATE: 10/07/20 [facility] PAGE 1 RUN TIME: 1607 Specimen Inquiry RUN USER: INTERFACE PATIENT: FIONA SANCHES JR LOC: WINTER U #: [id number] AGE/SX: 35/M ROOM: WINTER RE10/06/20REG DR: Sreekanth Garcia MD : 84 BED: 3 DIS: STATUS: ADM Arcadio TLOC: SPEC #: [id number] RECD: 10/06/20 STATUS: ELZA CHURCHILL #: [id number] MIRIAM: 10/06/[address]: Sreekanth Garcia MD ENTERED: 10/06/20 SP TYPE: SURG OTHR DR: DOES_NOT KNOW No Primary or Family Physician Juan Mcbride MD, Jignesh P MDORDERED: SURG PATH LVL 4 COPIES TO: DOES_NOT KNOW No Primary [place] [address] [place] [address] [email or web address] [address] [place], [place] [address] Arnulfo Cormier MD [address] [place], [place] [id number] HISTOLOGY: TISSUE ID BLK PCS KANWAL LEV PROCEDURE DISPOSITION ____ ___ ___ ___ ESOPHAGUS, NOS A 1 2 PROCEDURES: SURG PATH LVL 4 (10/06/20) TISSUES: A. ESOPHAGUS, NOS - ESOPHAGUS BIOPSY CLINICAL HISTORY ESOPHAGEAL FOOD BOLUS, STRICTURE V DYSMOTILITY CONTINUED ON NEXT PAGE RUN DATE: 10/07/20 [facility] PAGE 2 RUN TIME: 1607 Specimen Inquiry RUN USER: INTERFACE SPEC #: [id number]:[id number] PATIENT: FIONA SANCHES JR #[id number] (Continued) CPT CODES CPT CODE(S): 67155 , , , , , , FINAL DIAGNOSIS Esophagus, biopsy: ACUTE ESOPHAGITIS WITH CANDIDIASIS NEGATIVE FOR INTESTINAL METAPLASIA, DYSPLASIA, OR MALIGNANCY GROSS DESCRIPTION Esophagus biopsy. Received in formalin are multiple minute fragments of suarez soft tissue, 0.1 - 0.3 cm. The specimen is filtered in a teabag and entirely submitted as A. ba/nr Grossing performed at [facility] Pathology, [address] [place] [address], [address], [place] [address]. Sand Sifter: Abner Steward M.D. MICROSCOPIC DESCRIPTION Esophagus biopsy. Sections demonstrate squamous mucosa with a reactive appearance and increased acute inflammation. Detached fragments of squamous mucosa are identified with associated fungal organisms. No dysplasia or malignancy is seen. Alcian blue-PAS confirm the absence of intestinal metaplasia. Signed SIGNATURE ON FILE Deric Fink 10/07/20 9843 END OF REPORT Novel Coronavirus 15:50:00 Test Item Value Reference Range Interpretation Comments Novel Coronavirus Negative Negative Positive r esults are 2019 Inhouse (test indicativ e of the presence code = YEWBA11AK) ofSARS-CoV -2 RNA, clinical correlation wit h [...] indicativ e of the presence code = BKVEG50EN) ofSARS-CoV -2 RNA, clinical correlation wit h [...] for the identification of SARS-CoV-2 RNA usingthe [employer] M2000 Sy stem under the FDA Emergen cy UseAuthorizatio n. The testing is perf ormed by personneltraine d in the procedures for the [employer] M2000 molecular diagnostic SARS-CoV-2 assa y in vitro. CBC W/AUTO [id number] 13:10:00 Test Item Value Reference Range Interpretation [...] NT WITH AUTO DIFFERENTI AL. CBC W/AUTO [id number] 13:10:00 Test Item Value Reference Range Interpretation [...] CONSISTA NT WITH AUTO DIFFERENTI AL. RBC [id number] 13:10:00 Test Item Value Reference Range Interpretation Comments PLATELET ESTIMATE DECREASED THOUSAND ADEQUATE PLAT ELET COUNT (test code = REVIEWED AND PLTEST) VERIFIED. PLATELET MORPHOLOGY NORMAL (test code = PLTMORPH) CBC W/AUTO [id number] 13:10:00 Test Item Value Reference Range Interpretation [...] NT WITH AUTO DIFFERENTI AL. COMPREHENSIVE METABOLIC [id number] 11:48:00 Test Item Value Reference Range Interpretation [...] TOTAL (test code = ALKP) CBC W/AUTO [id number] 11:33:00 Test Item Value Reference Range Interpretation [...] REQUIRED (test code = DIFF/SCN CRITERIA MDIFF) [id number] 04:59:00 Test Item Value Reference Range Interpretation Comments AMMONIA (test code = AMM) 56 mcMOL/L 11-32 H LACTIC [id number] 04:59:00 Test Item Value Reference Range Interpretation Comments LACTIC ACID (test code = LACT) 0.7 mmol/L 0.4-2.0 N GLUCOSE BEDSIDE [id number] 20:35:00 Test Item Value Reference Range Interpretation Comments GLUCOSE BEDSIDE TESTING (test code 109 mg/dL 70-110 N = GLUBED) GLUCOSE BEDSIDE [id number] 17:10:00 Test Item Value Reference Range Interpretation Comments GLUCOSE BEDSIDE TESTING (test code 105 mg/dL 70-110 N = GLUBED) - US ABDOMEN [id number] 16:39:00 [facility] 1985 Sex: M Name: FIONA SANCHES JR [facility] : 1985 Age/S: 35 / M [address] Unit #: [id number] Loc: [place] [address] Phys: Matilda Kirk PA-C Acct: [id number] Dis Date: Status: ADM IN PHONE#: [phone] Exam Date: 10/06/2020 6567 FAX #: Reason:elevated lfts, evaluate for cirrhosis EXAMS: CPT: [id number] US ABDOMEN [facility] [address] RIGHT UPPER QUADRANT ULTRASOUND. CLINICAL HISTORY: Elevated [...] Signed Report (CONTINUED) Name: FIONA SANCHES JR [place] : 1985 Age/S: 35 / M [address] Unit #: [id number] Loc: [place] [address] Phys: Matilda Kirk PA-C Acct: [id number] Dis Date: Status: ADM IN PHONE #: [phone] Exam Date: 10/06/2020 1515FAX #: Reason: elevated lfts, evaluate for cirrhosis EXAMS: CPT: [id number] US ABDOMEN LTD [address] <Continued> CC: Sreekanth Garcia MD; Matilda Kirk Technologist: Rae Eaton [facility] Date/Time: 10/06/2020 (1639) [id number] PAGE 2 Signed Report Name: FIONA SANCHES JR [place] : 1985 Age/S: 35 / M [address] [address] Unit #: [id number] Loc: [place] [address] Phys: Matilda Kirk PA-C Acct: [id number] Dis Date: Status: ADM IN PHONE #: [phone] Exam Date: 10/06/2020 1515 FAX #: Reason: elevated lfts, evaluate for cirrhosis EXAMS: CPT: [id number] US ABDOMEN LTD 86128 <Continued> Orig Print D/T: S: 10/06/2020 (5053) Probe: PAGE 3 Signed ReportUA RFLX MICR CULT IF [id number] 15:23:00 Test Item Value Reference Range Interpretation [...] RiskForSepsis-no oth srcUA RFLX MICR CULT IF [id number] 15:09:00 Test Item Value Reference Range Interpretation [...] 92 mg/dL 70-110 N GLUBED) GLUCOSE BEDSIDE [id number] 13:37:00 Test Item Value Reference Range Interpretation Comments GLUCOSE BEDSIDE TESTING (test code = 58 mg/dL 70-110 L GLUBED) CREATINE KINASE (CK)2020-10-06 11:26:00 Test Item Value Reference Range Interpretation Comments CREATINE KINASE (CK) (test code = 287 Unit/L 26-192 H CK) [id number] 11:26:00 Test Item Value Reference Range Interpretation Comments AMYLASE (test code = JOSE CARLOS) 120 Unit/L 25-115 H [id number] 11:26:00 Test Item Value Reference Range Interpretation Comments LIPASE (test code = LIP) 112 Unit/L 114-286 L CBC W/AUTO [id number] 09:58:00 Test Item Value Reference Range Interpretation [...] DIFF/SCN CRITERIA (test code = MDIFF) WBC [id number] 09:58:00 Test Item Value Reference Range Interpretation [...] NORMAL (test code = PLTMORPH) CBC W/AUTO [id number] 09:55:00 Test Item Value Reference Range Interpretation [...] DIFF/SCN CRITERIA (test code = MDIFF) WBC [id number] 09:55:00 Test Item Value Reference Range Interpretation Comments SEGMENTED NEUTROPHILS (test code = SEG) % 40-75 LYMPHOCYTE (test code = LYMPH) % 12.6-43.5 CBC W/AUTO [id number] 09:55:00 Test Item Value Reference Range Interpretation [...] DIFF/SCN CRITERIA (test code = MDIFF) WBC [id number] 09:55:00 Test Item Value Reference Range Interpretation Comments SEGMENTED NEUTROPHILS (test code = SEG) % 40-75 LYMPHOCYTE (test code = LYMPH) % 12.6-43.5 COMPREHENSIVE METABOLIC [id number] 09:14:00 Test Item Value Reference Range Interpretation [...] TOTAL (test code = ALKP) CBC W/AUTO [id number] 09:02:00 Test Item Value Reference Range Interpretation [...] CRITERIA (test code = MDIFF) GLUCOSE BEDSIDE [id number] 06:41:00 Test Item Value Reference Range Interpretation Comments GLUCOSE BEDSIDE TESTING (test code = 65 mg/dL 70-110 L GLUBED) COVID 19 INHOUSE [id number] 05:40:00 Test Item Value Reference Range Interpretation Comments COVID 19 INHOUSE AG NEGATIVE Negative Per manu facturer, (test code = negative result s should [id number]) be treated aspr esumptive and, if inconsi [...] co nsistent with COVID-19. - CT CHEST [id number] 03:30:00 [facility] 1985 Sex: M Name: FIONA SANCHES JR [facility] : 1985 Age/S: 35 / M [address] Unit #: [id number] Loc: [place] [address] Phys: Scott Person MD Acct: [id number] Dis Date: Status: REG ER PHONE#: [phone] Exam Date: 10/06/2020 0245 FAX #: Reason:possible esophageal pneumatosis EXAMS: CPT: [id number] CT CHEST W/CONTRAST 21317 DICTATION LOCATION: 8 HISTORY: Male, 35 years [...] Signed Report (CONTINUED) Name: FIONA SANCHES JR [facility] : 1985 Age/S: 35 / M [address] Unit #: [id number] Loc: [place] [address] Phys: Scott PersonOR Acct: [id number] Dis Date: Status: REG ER PHONE #: [phone] Exam Date: 10/06/2020 0245 FAX #: Reason: possible esophageal pneumatosisEXAMS: CPT: [id number] CT CHEST W/CONTRAST 85801 <Continued> (i.e. scleroderma or dermatomyositis). Infiltrative neoplasm [...] (3) PAGE 2 Signed Report- CT NECK W/[id number] 03:11:00 [facility] 1985 Sex: M Name: FIONA SANCHES JR : 1985 Age/S: 35 / M [address] Unit #: [id number] Loc: [place] [address] Phys: Scott Person MD Acct: [id number] Dis Date: Status: REG ER PHONE#: [phone] Exam Date: 10/06/2020 0250 FAX #: Reason:possible esophageal pneumatosis EXAMS: CPT: [id number] CT NECK W/CONTRAST 21601 EXAM: - CT NECK W/CONTRAST LOCATION: H57 [...] JR : 1985 Age/S: 35 / M [address] Unit #: [id number] Loc: [place] [address] Phys: Scott Person MD Acct: [id number] Dis Date: Status: REG ER PHONE #: [phone] Exam Date: 10/06/2020 0250 FAX #: Reason: possible esophageal pneumatosis EXAMS: CPT: [id number] CT NECK W/CONTRAST 48562 <Continued> CC: Technologist:Valentine Momin, RT(R)(CT); CTDI: DLP: Trnscb Date/Time: 10/06/2020 (310) [id number] Orig Print D/T: S: 10/06/2020 (1) PAGE 2 Signed Report BASIC METABOLIC [id number] 02:14:00 Test Item Value Reference Range Interpretation [...]
[2022-05-17 16:59] LABS: Urine Blood Negative (Negative); Urine Glucose Negative (Negative); Urine Protein 1+ (Negative); Urine Specific Gravity >=1.030 (1.005-1.030); Urine pH 6.5 (5.0-7.0)
[2022-05-17] MEDS ORDERED: NA CHLORIDE 0.9% 1,000 ML ONE (17:04)
[2022-05-17 17:18] LABS: Barbiturates NEGATIVE (NEGATIVE); Benzodiazepines NEGATIVE (NEGATIVE); Cocaine POSITIVE (NEGATIVE); METHAMPHETAM NEGATIVE (NEGATIVE); Methadone NEGATIVE (NEGATIVE); Opiates NEGATIVE (NEGATIVE); Phencyclidine NEGATIVE (NEGATIVE); THC Cannibis NEGATIVE (NEGATIVE)
[2022-05-17 18:11] LABS: Absolute Lymphocytes (CBC) 2.2 K/uL (0.7-4.9); Hematocrit 27.9 % (39.6-49.0); Lymphocytes % 28.1 % (15.3-44.8); MCV 87.7 fL (80-100); RBC Red Blood Cell Count 3.18 M/uL (4.33-5.43)
[2022-05-17 18:15] LABS: Protime INR 1.19
[2022-05-17] MEDS ORDERED: ONDANSETRON 4 MG/2 ML VIAL ONE (18:26)
[2022-05-17 18:31] LABS: ALT/SGPT < 10 U/L (12-78); AST/SGOT 8 U/L (15-37); Albumin 2.1 g/dL (3.4-5.0); Alkaline Phosphatase 74 U/L (45-117); BUN Blood Urea Nitrogen 9 mg/dL (7-18); Bicarbonate 24 mmol/L (21-32); Bilirubin Direct < 0.1 mg/dL (0-0.2); Bilirubin Total 0.3 mg/dL (0.2-1.0); Glomerular Filtration Rate 118 ml/min (=/>90); Glucose Level 81 mg/dL (74-106); Protein, Total 6.7 g/dL (6.4-8.2); Sodium Level 141 mmol/L (136-145)
[2022-05-17 18:32] LABS: Potassium 2.6 mmol/L (3.5-5.1)
--- NOTE | 2022-05-17 18:57 | ER ---
Nurse's Notes [facility] Name: Tahir Ag Jr Age: 37 yrs Sex: Male : 1985 Arrival Date: 05/17/2022 Time: 16:19 Bed 18 Private MD: Diagnosis: Bipolar disorder, unspecified;Achalasia of cardia;Suicidal ideations-no plan, resolved;Cocaine abuse Presentation: 05/17 16:30 Chief complaint: MH officer reports patient is having issues with his feeding tube and bm7 he made threats to harm himself but did not elaborate-patient is not taking care of himself and the feeding tube need is questionable, patient has a psych history but is not compliant with treatment. 16:30 Coronavirus screen: Vaccine status: Patient reports being unvaccinated. Ebola Screen: [facility] Patient negative for fever greater than or equal to 101.5 degrees Fahrenheit, and additional compatible Ebola Virus Disease symptoms Patient denies exposure to infectious person. Patient denies travel to an Ebola-affected area in the 21 days before illness onset. 16:30 Method Of Arrival: Law Enforcement: MH officer in [place] [id number] 16:30 Acuity: MARTINA 2 [facility] 16:30 Onset of symptoms is unknown. Care prior to arrival: None. [facility] 18:23 Initial Sepsis Screen: Does the patient meet any 2 criteria? No. Patient's initial 7 sepsis screen is negative. Does the patient have a suspected source of infection? No. Patient's initial sepsis screen is negative. Risk Assessment: Do you want to hurt yourself or someone else? Patient reports desire/thoughts of hurting themselves or someone else. Provider notified. Other: pt states he wants to harm himself after getting into a verbal argument with his father. Activity prior to arrival: None. 05/19 08:13 Risk Assessment: Do you want to hurt yourself or someone else? Patient reports no jd3 desire to harm self or others. Triage Assessment: 05/17 18:23 General: Appears slender, unkempt, emaciated, Behavior is calm, cooperative, Smells of bm7 urine. Pain: Denies pain. EENT: Oral mucosa is moist. Neuro: Level of Consciousness is awake, alert, obeys commands, Oriented to person, place, time, situation. Cardiovascular: No deficits noted. Respiratory: No deficits noted. GI: Abdomen is flat, PEG tube in place, clamped. Site with drainage. : No deficits noted. No signs and/or symptoms were reported regarding the genitourinary system. Derm: Skin is intact, Skin is dry, Skin is normal, Skin temperature is warm. Musculoskeletal: No deficits noted. Historical: - Allergies: 17:32 No Known Allergies; bm7 - Home Meds: 17:32 Depakote 125 mg Oral TbEC 1 tab 2 times per day [Active]; Hydroxyzine Oral [Active]; bm7 risperidone 1 mg/mL Oral soln 1 mL once daily [Active]; Trazodone Oral [Active]; - PMHx: 17:32 achalasia; Bipolar disorder; Diabetes - NIDDM; Hernia; Hypertension; Schizophrenia; bm7 Seizure; - PSHx: 17:32 gastrostomy tube; bm7 - Immunization history:: Client reports having NOT received the Covid vaccine. Last tetanus immunization: Pneumococcal vaccine status is unknown, Flu vaccine status is unknown. - Social history:: Smoking status: Patient reports the use of cigarette tobacco products, smokes one pack cigarettes per day. - Family history:: not pertinent. Screenin:31 Abuse screen: Denies threats or abuse. Denies injuries from another. Nutritional bm7 screening: g-tube in place, poor dietary habits. Tuberculosis screening: No symptoms or risk factors identified. Fall Risk Fall in past 12 months (25 points). IV access (20 points). Ambulatory Aid- Mental Status- Oriented to own ability (0 pts). Assessment: 17:22 Reassessment: called dietary and spoke to Katarzyna to inform of finger food diet. She bm7 states she will bring one down before dietary leaves for the day. 17:45 Reassessment: ERP at bedside to [facility]. bm7 18:01 Reassessment: patient complains of nausea, emesis bag given. ERP notified. bm7 18:30 GI: Reports nausea, vomiting. bm7 18:45 Reassessment: Patient complains of pain to his G-tube site. Patient moaning asking for bm7 pain medication. ERP notified. 18:48 Reassessment: Patient at nurses station to call mother and father. Neither answered. bm7 Message left with father. 18:58 Reassessment: Pt roseytata stating he wants to go home. Pt arguing with primary nurse. bm7 Security called and at bedside. Pt calmed down and attempted to contact father again via phone. Pt ambulated to the nurses station to call father. Father answered and stated he did not "feel safe" coming to pick him up. ERP notified and transfer was initiated to an outside facility. 23:51 Reassessment: Patient appears in no apparent distress at this time. Patient and/or ld1 family updated on plan of care and expected duration. Pain level reassessed. Laying in bed asleep. RR 16. 07/26 01:28 Reassessment: No changes from previously documented assessment. Patient and/or family ll3 updated on plan of care and expected duration. Pain level reassessed. Patient is alert, oriented x 3, equal unlabored respirations, skin warm/dry/pink. 02:01 Reassessment: No changes from previously documented assessment. Patient and/or family ll3 updated on plan of care and expected duration. Pain level reassessed. Patient is alert, oriented x 3, equal unlabored respirations, skin warm/dry/pink. 04:00 Reassessment: No changes from previously documented assessment. Patient and/or family ll3 updated on plan of care and expected duration. Pain level reassessed. Patient is alert, oriented x 3, equal unlabored respirations, skin warm/dry/pink. 06:20 Reassessment: No changes from previously documented assessment. Patient and/or family ll3 updated on plan of care and expected duration. Pain level reassessed. Patient is alert, oriented x 3, equal unlabored respirations, skin warm/dry/pink. 10:29 Reassessment: Received VO from Dr Fish to administer Ketorolac 15 mg IVP x1, repeat vg1 order x1 if necessary. 10:55 Reassessment: Pt requesting nurse to get money of $5 from seth thacker from belonging vg1 bag, nurse received permission from charge nurse; asking to purchase chips from vending machine; nurse was with sitter to verify money in front of patient. 11:04 Reassessment: PT asked for fritos from vending machine, provided $5 from pants pocket. tp1 Vending machine would not give change, owed $3.75. [facility] who services machine was called and they are sending a qc lab technician out so service machine and give PT change. PT has been notified. 12:23 Reassessment: Pt called father to see if will picker packer from ED, pt stated father stated vg1 "Im not going up there" and hung up the phone. Pt stated may be able to call sister but not until around 5 pm. 12:28 Reassessment: Pt stated Left shoulder pain is 5/10. vg1 12:41 Reassessment: Leena from [facility] is at pt bedside. vg1 13:32 Reassessment: Pt called father again, father asked to speak with nurse, Father stated vg1 "I am not going to pick my son up, we do not feel safe in the home with him, he has already stated he wants to kill himself twice and Im not going to have that in my home and I dont want that to be a burden on me" Nurse gave pt father updated information in regards to pt being transferred; was told at this time there has not been an acceptance to a facility due to pts peg tub. 14:01 Reassessment: received VO from Dr Fish to administer 15 ketorolac mg IVP x1. vg1 14:57 Reassessment: $3.75 change was returned to PT belongings. PT notified. tp1 15:42 Reassessment: spoke with Awais MACK form [facility] and stated "im sorry vg1 but we are unable to accept pt since he has peg tube" Provider notified. 17:01 Reassessment: received VO from Dr Fish to administer Morphine 2 mg IVP x1. vg1 20:18 Reassessment: Pt c/o pain all over, requested morphine, Dr. Ferrer notified, no new ll3 orders. 05/19 07:40 Reassessment: Patient and/or family updated on plan of care and expected duration. Pain jd3 level reassessed. Patient is alert, oriented x 3, equal unlabored respirations, skin warm/dry/pink. resting in bed. sitter at bedside. General: Appears in no apparent distress. comfortable, Behavior is calm, cooperative, appropriate for age. Neuro: [place] Agitation-Sedation Scale (RASS): 0 - Alert and Calm Level of Consciousness is awake, alert, obeys commands, Oriented to person, place, time, situation. 08:13 Reassessment: Patient appears in no apparent distress at this time. Patient and/or jd3 family updated on plan of care and expected duration. Pain level reassessed. Patient is alert, oriented x 3, equal unlabored respirations, skin warm/dry/pink. Patient states feeling better. Psych: 05/17 17:46 [place] Suicide Severity Screening: In the past month, have you wished you were bm7 or wished you could go to sleep and not wake up? Patient responds "No." "In the past month, have you actually had any thoughts of killing yourself?" Patient responds "yes." Based off the client's response additional [place] suicide severity screening questions to be further documented on paper forms. pt does not have a suicidal plan "In your lifetime, have you ever done anything, started to do anything, or prepared to do anything to end your life?" Patient responds "no." pt has a psychiatric history and history of voicing self harm without any plan, action, or success. Subjective: Having thoughts of suicide. Denies suicidal plan. Objective: Patient is cooperative, Speech is normal, Affect is appropriate. Interventions: Removed personal items and placed in bag. Patient placed in hospital gown. Searched person for dangerous items. Urine collected and sent for urine drug test. Belonging list filled out. Safety Checks: Personal items have been removed. Door is open. Patient uses cocaine, Drug screen positive for cocaine and pt admits to cocaine abuse. Commitment: Patient will be a voluntary commitment. Vital Signs: 18:39 BP 88 / 63; Pulse 72; Resp 16; Temp 97.7(O); Pulse Ox 99% on R/A; Weight 40.82 kg (R); bm7 Height 5 ft. 5 in. (165.10 cm); Pain 0/10; 18:44 BP 85 / 53; Pulse 76; Resp 16; Pulse Ox 99% on R/A; bm7 23:51 BP 100 / 67; Pulse 71; Resp 18; Pulse Ox 99% on R/A; ld1 05/18 02:01 BP 85 / 62; Pulse 54; Resp 17; Pulse Ox 100% on R/A; ll3 04:00 BP 90 / 66; Pulse 71; Resp 16; Pulse Ox 98% on R/A; ll3 06:20 BP 97 / 70; Pulse 71; Resp 17; Pulse Ox 100% on R/A; ll3 05/19 04:00 BP 90 / 72; Pulse 43; Resp 16; Temp 97.4(O); Pulse Ox 98% on R/A; ll3 05/17 18:39 Body Mass Index 14.98 (40.82 kg, 165.10 cm) bm7 ED Course: 05/17 16:19 Patient arrived in ED. daniel 16:19 Keshawn Fish MD is Attending Physician. daniel 16:48 Kandace Rapp, MARTINA is Primary Nurse. jg9 17:23 Missed attempt(s): 20 gauge in right forearm. Bleeding controlled, band aid applied, bm7 catheter tip intact. 17:24 Urine collected: clean catch specimen, clear. bm7 17:25 Warm blanket given. Head of bed elevated. Diet: finger foods diet ordered and dietary bm7 notified per Primary nurse Kandace. 17:30 Inserted saline lock: 22 gauge in right antecubital area, using aseptic technique. bm7 17:53 Diet: Dietary at bedside to administer tray . bm7 18:23 Arm band placed on left wrist. bm7 18:33 Triage completed. jl7 18:44 EKG completed in triage. Results shown to . bm7 05/18 07:00 Safety Checks: Personal items have been removed. The door is open or patient has been vg1 placed in a hallway bed/chair. Sitter not present at this time due to or because no sitter at this time; charge nurse aware Note: Pt appears in NAD; resting with eyes closed. Other: Pt has 22 G to Right AC and 20 G to Left jugular. 07:30 Safety Checks: Personal items have been removed. The door is open or patient has been vg1 placed in a hallway bed/chair. Sitter not present at this time due to or because Pt appears in NAD; resting with eyes closed. 08:00 Safety Checks: Personal items have been removed. The door is open or patient has been vg1 placed in a hallway bed/chair. Sitter not present at this time due to or because Not sitter at this time; charge nurse aware; Pt appears in NAD, resting with eyes closed. 08:30 Safety Checks: Personal items have been removed. The door is open or patient has been vg1 placed in a hallway bed/chair. Sitter present at this time. Pt appears in NAD; AOx3, states pain in Left shoulder; provider notified. 09:00 Safety Checks: Personal items have been removed. The door is open or patient has been vg1 placed in a hallway bed/chair. Sitter present at this time. Pt appears in NAD, eating breakfast, watching tv. 09:10 Patient has correct armband on for positive identification. Placed in gown. Bed in low vg1 position. Side rails up X 1. pt placed in paper gown. 09:30 Safety Checks: Personal items have been removed. The door is open or patient has been vg1 placed in a hallway bed/chair. Sitter present at this time. Other: Pt appears in NAD, sitter stated pt vomited, states about 24 oz according to emesis bag. Pt state "I always throw up a little bit after eating". 10:00 Safety Checks: Personal items have been removed. The door is open or patient has been vg1 placed in a hallway bed/chair. Sitter present at this time. Other: Pt appears to be in NAD, watching tv. 10:30 Safety Checks: Personal items have been removed. The door is open or patient has been vg1 placed in a hallway bed/chair. Sitter present at this time. Other: pt appears to be in NAD, watching tv, stated Left shoulder pain, provider notified. 10:36 IV discontinued, intact, bleeding controlled, No redness/swelling at site. Pressure vg1 dressing applied, 22 g to Right AC, infiltrated. 11:00 Safety Checks: Personal items have been removed. The door is open or patient has been vg1 placed in a hallway bed/chair. Sitter present at this time. Other: Pt appears in NAD, watching tv. 11:30 Safety Checks: Personal items have been removed. The door is open or patient has been vg1 placed in a hallway bed/chair. Sitter present at this time. Other: pt appears in NAD, watching tv, eating chips. 12:00 Safety Checks: Personal items have been removed. The door is open or patient has been vg1 placed in a hallway bed/chair. Sitter present at this time. Other: Pt appears in NAD, watching tv. 12:27 Safety Checks: Personal items have been removed. The door is open or patient has been vg1 placed in a hallway bed/chair. Sitter present at this time. Other: Pt appears in NAD, watching tv. 13:00 Safety Checks: Personal items have been removed. The door is open or patient has been vg1 placed in a hallway bed/chair. Sitter present at this time. Other: pt appears to be in NAD, AOx3 , watching tv. 13:30 No apparent distress. Resting quietly. Safety Checks: Personal items have been removed. vg1 The door is open or patient has been placed in a hallway bed/chair. Sitter present at this time. 13:[address] [facility]. bd 14:00 No apparent distress. Resting quietly. changed linen and paper scrubs. vg1 14:13 faxed chart to [facility], [facility]. 14:30 No apparent distress. Resting quietly. Safety Checks: Personal items have been removed. vg1 The door is open or patient has been placed in a hallway bed/chair. Sitter present at this time. 15:00 No apparent distress. Resting quietly. Safety Checks: Personal items have been removed. vg1 The door is open or patient has been placed in a hallway bed/chair. Sitter present at this time. 15:30 No apparent distress. Resting quietly. Safety Checks: Personal items have been removed. vg1 The door is open or patient has been placed in a hallway bed/chair. Items have not been removed Sitter present at this time. 16:00 No apparent distress. Resting quietly. Patient requests pain medication. Safety Checks: vg1 Personal items have been removed. The door is open or patient has been placed in a hallway bed/chair. Items have not been removed Sitter present at this time. 16:30 No apparent distress. Patient requests pain medication. Safety Checks: Personal items vg1 have been removed. The door is open or patient has been placed in a hallway bed/chair. Items have not been removed Sitter present at this time. 17:00 No apparent distress. Resting quietly. Safety Checks: Personal items have been removed. vg1 The door is open or patient has been placed in a hallway bed/chair. Items have not been removed Sitter present at this time. 17:30 No apparent distress. watching tv. Safety Checks: Personal items have been removed. The vg1 door is open or patient has been placed in a hallway bed/chair. Sitter present at this time. Other: eating dinner. 18:00 No apparent distress. watching tv, eating dinner. Safety Checks: Personal items have vg1 been removed. The door is open or patient has been placed in a hallway bed/chair. Sitter present at this time. 18:30 No apparent distress. resting with eyes closed. Safety Checks: Personal items have been vg1 removed. The door is open or patient has been placed in a hallway bed/chair. Sitter present at this time. 05/19 07:51 Nehemias Gilbert MD is Referral Physician. [facility] 08:13 No provider procedures requiring assistance completed. IV discontinued, intact, jd3 bleeding controlled, No redness/swelling at site. Pressure dressing applied. Administered Medications: 05/17 17:33 Drug: NS 0.9% 500 ml Route: IV; Rate: bolus; Site: right antecubital; bm7 18:14 Follow up: IV Status: Completed infusion; IV Intake: 500ml bm7 18:29 Drug: Zofran (Ondansetron) 4 mg Route: IVP; Site: right forearm; bm7 18:47 Follow up: Response: No adverse reaction bm7 21:23 Drug: Potassium Chloride 20 mEq Route: IV; Rate: per protocol; Site: right antecubital; ke1 21:23 Drug: Potassium Effervescent Tablet 50 mEq Route: PO; ke1 21:23 Drug: NS 0.9% with KCl 20 mEq/L 1000 ml Route: IV; Rate: 100 ml/hr; Site: right ke1 antecubital; 21:24 Drug: Pepcid (famotidine) 20 mg Route: IVP; Site: right antecubital; ke1 05/18 10:36 Drug: Ketorolac 15 mg Route: IVP; Site: right antecubital; vg1 12:28 Follow up: Response: No adverse reaction; Pain is decreased vg1 14:07 Drug: Ketorolac 15 mg Route: IVP; Site: left jugular; vg1 16:00 Follow up: Response: No adverse reaction; No change in condition vg1 17:08 Drug: morphine 4 mg Route: IVP; Infused Over: 4 mins; Site: left jugular; vg1 Medication: 09:10 VIS not applicable for this client. vg1 Intake: 05/17 18:14 IV: 500ml; Total: 500ml. bm7 Outcome: 18:56 ER care complete, transfer ordered by . daniel 05/19 07:51 Discharge ordered by . daniel 08:13 Discharged to home ambulatory. jd3 08:13 Condition: stable 08:13 Discharge instructions given to patient, Instructed on discharge instructions, follow up and referral plans. Demonstrated understanding of instructions, follow-up care. 08:16 Patient left the ED. jd3 Signatures: Stephanie Freeman Corey, MD MD cha Leal, Jahala, RN RN jl7 Kilo Reed, RN RN jd3 Delmy Perez RN RN vg1 Rea Guajardo, RN RN bm7 Vi Alvarado, RN RN ld1 Hung Mclean, RN RN ll3 Lisa Knapp, RN RN tp1 Kandace Rapp RN RN jg9 Chino Low RN RN ke1 Corrections: (The following items were deleted from the chart) 05/18 10:37 07:00 Safety Checks: Personal items have been removed. The door is open or patient has vg1 been placed in a hallway bed/chair. Sitter not present at this time due to or because no sitter at this time; charge nurse aware Note: Pt appears in NAD; resting with eyes closed. vg1 17:19 15:00 Safety Checks: Personal items have been removed. The door is open or patient has vg1 been placed in a hallway bed/chair. Items have not been removed Sitter present at this time. vg1
--- NOTE | 2022-05-17 18:57 | EDPHYS ---
Physician Documentation [facility] Name: Tahir Ag Jr Age: 37 yrs Sex: Male : 1985 Arrival Date: 05/17/2022 Time: 16:19 Bed 18 Private MD: ED Physician Keshawn Fish HPI: 05/17 18:16 This 37 yrs old Black Male presents to ER via Unassigned with complaints of suicidial daniel thoughts. 18:16 The patient presents to the emergency department with depression, a history of daniel substance abuse, Type: cocaine. Onset: The symptoms/episode began/occurred 2 day(s) ago. Past psychiatric history: Prior diagnosis: bipolar disorder, depression, Psychiatric medications include: none. Associated signs and symptoms: Pertinent positives; anxiety, depression, suicide ideation. Severity of symptoms: At their worst the symptoms were mild in the emergency department the symptoms have improved moderately. The patient has not experienced similar symptoms in the past. Historical: - Allergies: 17:32 No Known Allergies; bm7 - Home Meds: 17:32 Depakote 125 mg Oral TbEC 1 tab 2 times per day [Active]; Hydroxyzine Oral [Active]; bm7 risperidone 1 mg/mL Oral soln 1 mL once daily [Active]; Trazodone Oral [Active]; - PMHx: 17:32 achalasia; Bipolar disorder; Diabetes - NIDDM; Hernia; Hypertension; Schizophrenia; bm7 Seizure; - PSHx: 17:32 gastrostomy tube; bm7 - Immunization history:: Client reports having NOT received the Covid vaccine. Last tetanus immunization: Pneumococcal vaccine status is unknown, Flu vaccine status is unknown. - Social history:: Smoking status: Patient reports the use of cigarette tobacco products, smokes one pack cigarettes per day. - Family history:: not pertinent. ROS: 18:16 Constitutional: Negative for fever, chills, and weight loss, Eyes: Negative for injury, daniel pain, redness, and discharge, ENT: Negative for injury, pain, and discharge, Neck: Negative for injury, pain, and swelling, Cardiovascular: Negative for chest pain, palpitations, and edema, Respiratory: Negative for shortness of breath, cough, wheezing, and pleuritic chest pain, Abdomen/GI: Negative for abdominal pain, nausea, vomiting, diarrhea, and constipation, Back: Negative for injury and pain, : Negative for injury, bleeding, discharge, and swelling, MS/Extremity: Negative for injury and deformity, Skin: Negative for injury, rash, and discoloration, Neuro: Negative for headache, weakness, numbness, tingling, and seizure, Allergy/Immunology: Negative for hives, rash, and allergies, Endocrine: Negative for neck swelling, polydipsia, polyuria, polyphagia, and marked weight changes, Hematologic/Lymphatic: Negative for swollen nodes, abnormal bleeding, and unusual bruising. 18:16 Psych: Positive for depression, suicidal ideation, no clear plan. Exam: 18:16 Constitutional: This is a well developed, well nourished patient who is awake, alert, daniel and in no acute distress. Head/Face: Normocephalic, atraumatic. Eyes: Pupils equal round and reactive to light, extra-ocular motions intact. Lids and lashes normal. Conjunctiva and sclera are non-icteric and not injected. Cornea within normal limits. Periorbital areas with no swelling, redness, or edema. ENT: Nares patent. No nasal discharge, no septal abnormalities noted. Tympanic membranes are normal and external auditory canals are clear. Oropharynx with no redness, swelling, or masses, exudates, or evidence of obstruction, uvula midline. Mucous membranes moist. Neck: Trachea midline, no thyromegaly or masses palpated, and no cervical lymphadenopathy. Supple, full range of motion without nuchal rigidity, or vertebral point tenderness. No Meningismus. Chest/axilla: Normal chest wall appearance and motion. Nontender with no deformity. No lesions are appreciated. Cardiovascular: Regular rate and rhythm with a normal S1 and S2. No gallops, murmurs, or rubs. Normal PMI, no JVD. No pulse deficits. Respiratory: Lungs have equal breath sounds bilaterally, clear to auscultation and percussion. No rales, rhonchi or wheezes noted. No increased work of breathing, no retractions or nasal flaring. Abdomen/GI: Soft, non-tender, with normal bowel sounds. No distension or tympany. No guarding or rebound. No evidence of tenderness throughout. Back: No spinal tenderness. No costovertebral tenderness. Full range of motion. Male : Normal genitalia with no discharge or lesions. Skin: Warm, dry with normal turgor. Normal color with no rashes, no lesions, and no evidence of cellulitis. MS/ Extremity: Pulses equal, no cyanosis. Neurovascular intact. Full, normal range of motion. Neuro: Awake and alert, GCS 15, oriented to person, place, time, and situation. Cranial nerves II-XII grossly intact. Motor strength 5/5 in all extremities. Sensory grossly intact. Cerebellar exam normal. Normal gait. Psych: Awake, alert, with orientation to person, place and time. Behavior, mood, and affect are within normal limits. 18:16 ECG was reviewed by the Attending Physician. Vital Signs: 18:39 BP 88 / 63; Pulse 72; Resp 16; Temp 97.7(O); Pulse Ox 99% on R/A; Weight 40.82 kg (R); bm7 Height 5 ft. 5 in. (165.10 cm); Pain 0/10; 18:44 BP 85 / 53; Pulse 76; Resp 16; Pulse Ox 99% on R/A; bm7 23:51 BP 100 / 67; Pulse 71; Resp 18; Pulse Ox 99% on R/A; ld1 05/18 02:01 BP 85 / 62; Pulse 54; Resp 17; Pulse Ox 100% on R/A; ll3 04:00 BP 90 / 66; Pulse 71; Resp 16; Pulse Ox 98% on R/A; ll3 06:20 BP 97 / 70; Pulse 71; Resp 17; Pulse Ox 100% on R/A; ll3 05/19 04:00 BP 90 / 72; Pulse 43; Resp 16; Temp 97.4(O); Pulse Ox 98% on R/A; ll3 05/17 18:39 Body Mass Index 14.98 (40.82 kg, 165.10 cm) bm7 MDM: 05/17 16:19 Patient medically screened. daniel 17:13 Patient medically screened. daniel 18:23 Differential diagnosis: drug withdrawal. acute psychotic break, depression, psychosis daniel secondary to non-compliance. Data reviewed: vital signs, nurses notes, lab test result(s), EKG. Data interpreted: residential monitor: rate is 55 beats/min, rhythm is regular, Pulse oximetry: on room air is 99 %. Test interpretation: by ED physician or midlevel provider: ECG. Counseling: I had a detailed discussion with the patient and/or guardian regarding: the historical points, exam findings, and any diagnostic results supporting the discharge/admit diagnosis, lab results, radiology results, the need for outpatient follow up, for definitive care, a psychiatrist. 05/17 16:20 Order name: Acetaminophen; Complete Time: 18:56 [facility] 05/17 16:20 Order name: Basic Metabolic Panel; Complete Time: 18:56 [facility] 05/17 16:20 Order name: CBC with Diff; Complete Time: 18:56 [facility] 05/17 16:20 Order name: ETOH Level; Complete Time: 18:56 [facility] 05/17 16:20 Order name: Hepatic Function; Complete Time: 18:56 [facility] 05/17 16:20 Order name: PT-INR; Complete Time: 18:56 [facility] 05/17 16:20 Order name: Ptt, Activated; Complete Time: 18:56 [facility] 05/17 16:20 Order name: Salicylate; Complete Time: 18:57 [facility] 05/17 16:20 Order name: Urine Drug Screen; Complete Time: 17:32 [facility] 05/17 16:59 Order name: Urine Dipstick-Ancillary; Complete Time: 17:32 EDMS 05/17 18:21 Order name: Valproic Acid (depakote); Complete Time: 05:29 05/18 05:43 Order name: BMP: Repeat per Dr. Ferrer; Complete Time: 10:02 lp1 05/17 16:20 Order name: EKG; Complete Time: 16:21 [facility] 05/17 16:20 Order name: EKG - Nurse/Tech; Complete Time: 16:49 [facility] 05/17 16:20 Order name: IV Saline Lock; Complete Time: 17:33 [facility] 05/17 16:20 Order name: Labs collected and sent; Complete Time: 18:15 [facility] 05/17 16:20 Order name: Suicide Precautions; Complete Time: 18:15 [facility] 05/17 17:21 Order name: Diet Finger Food; Complete Time: 17:22 bm7 05/18 08:40 Order name: Diet Finger Food; Complete Time: 08:41 bd 05/18 17:22 Order name: Diet Finger Food; Complete Time: 17:22 bd 05/19 07:41 Order name: Diet Finger Food; Complete Time: 07:41 jd3 05/17 16:20 Order name: Suicide Screening ([place]); Complete Time: 18:15 [facility] 05/17 16:20 Order name: Urine Dipstick-Ancillary (obtain specimen); Complete Time: 17:33 daniel EC:16 Rate is 55 beats/min. Rhythm is regular. QRS [place] is Normal. GA interval is normal. QRS daniel interval is normal. QT interval is normal. No Q waves. T waves are Normal. No ST changes noted. Clinical impression: NSR w/ Non-specific ST/T Changes and No evidence of ischemia. Interpreted by me. Reviewed by me. Administered Medications: 17:33 Drug: NS 0.9% 500 ml Route: IV; Rate: bolus; Site: right antecubital; bm7 18:14 Follow up: IV Status: Completed infusion; IV Intake: 500ml bm7 18:29 Drug: Zofran (Ondansetron) 4 mg Route: IVP; Site: right forearm; bm7 18:47 Follow up: Response: No adverse reaction bm7 21:23 Drug: Potassium Chloride 20 mEq Route: IV; Rate: per protocol; Site: right antecubital; ke1 21:23 Drug: Potassium Effervescent Tablet 50 mEq Route: PO; ke1 21:23 Drug: NS 0.9% with KCl 20 mEq/L 1000 ml Route: IV; Rate: 100 ml/hr; Site: right ke1 antecubital; 21:24 Drug: Pepcid (famotidine) 20 mg Route: IVP; Site: right antecubital; ke1 05/18 10:36 Drug: Ketorolac 15 mg Route: IVP; Site: right antecubital; vg1 12:28 Follow up: Response: No adverse reaction; Pain is decreased vg1 14:07 Drug: Ketorolac 15 mg Route: IVP; Site: left jugular; vg1 16:00 Follow up: Response: No adverse reaction; No change in condition vg1 17:08 Drug: morphine 4 mg Route: IVP; Infused Over: 4 mins; Site: left jugular; vg1 Disposition Summary: 05/19/22 07:51 Discharge Ordered Location: Home daniel Problem: new(05/19/22 07:51) daniel Symptoms: have improved(05/19/22 07:51) daniel Condition: Stable(05/19/22 07:51) daniel Diagnosis - Bipolar disorder, unspecified(05/19/22 07:51) daniel - Achalasia of cardia daniel - Suicidal ideations - no plan, resolved(05/19/22 07:51) daniel - Cocaine abuse(05/19/22 07:51) daniel Followup: daniel - With: Private Physician - When: 2 - 3 days - Reason: Recheck today's complaints, Continuance of care, Re-evaluation by your physician Followup: daniel - With: - When: 2 - 3 days - Reason: Recheck today's complaints, Re-evaluation by your physician Discharge Instructions: - Discharge Summary Sheet daniel - Suicidal Feelings: How to Help Yourself daniel - Helping Someone Who is Suicidal daniel - Achalasia daniel - Stress, Adult daniel - Hypokalemia daniel - Managing Bipolar Disorder daneil - Mixed Bipolar Disorder daniel - Bipolar 2 Disorder daniel Forms: - Medication Reconciliation Form daniel - Thank You Letter daniel - Antibiotic Education daniel - Prescription Opioid Use daniel Signatures: Dispatcher [employer] EDKeshawn Meyer MD MD cha Garcia, Victoria, RN RN vg1 Rea Guajardo RN RN bm7 Chino Low RN RN ke1 Lisa Summers PA PA sb3 Corrections: (The following items were deleted from the chart) 05/19 07:05/17 18:56 to psych [facility] 05/19 18:56 Psych Facility [facility] 05/19 07:05/17 18:56 Higher level of care [facility] 05/19 07:05/17 18:56 Stable [facility] 05/19 07:05/17 18:56 new [facility] 05/19 07:05/17 18:56 have improved [facility] 05/19 07:05/17 18:56 Suicidal ideations [facility] 05/19 07:05/17 18:56 Bipolar disorder, unspecified [facility] 05/19 07:05/17 18:56 Cocaine abuse daniel [facility]
[2022-05-17] MEDS ORDERED: NS KCL 20MEQ 1,000 ML IV ONE (21:16)
[2022-05-17] MEDS ORDERED: POTASSIUM 25 MEQ EFFERV TAB ONE (21:16)
[2022-05-17] MEDS ORDERED: KCL 20 MEQ/100 mL IVPB 100 ML IV ONE (21:17)
[2022-05-17] MEDS ORDERED: FAMOTIDINE 20 MG/2 ML VIAL IV ONE (21:17)
[2022-05-18 09:35] LABS: Potassium 4.2 mmol/L (3.5-5.1)
[2022-05-18] MEDS ORDERED: KETOROLAC 30 MG/ML INJ ONE (10:37)
[2022-05-18] MEDS ORDERED: MORPHINE 2 MG/ML SYR ONE (17:07)
[2022-05-19 10:44] VITALS: BP 90/72; TEMP 97.4; O2SAT 98
--- NOTE | 2022-05-19 16:32 | EKG ---
Test Date: 2022-05-17 Test Time: 16:43:33 Surgical Resident: DARCIE MEASUREMENT RESULTS: Intervals: Rate: 55 [place]: 138 QRSD: 82 QT: 418 QTc: 399 [place]: P: 68 [place]: 138 QRS: 83 T: 83 INTERPRETIVE STATEMENTS: Sinus bradycardia with sinus arrhythmia Otherwise normal ECG Compared to ECG 05/04/2022 20:45:53 Sinus rhythm no longer present Electronically Signed On 05-19-22 16:31:40 CDT by Grant Bill
== END 2022-05-19 08:16 | disposition home or self-care (01) ==
LOC: ER 16:09
DX: R45.851 Suicidal ideations (principal); F14.10 Cocaine abuse, uncomplicated; F31.9 Bipolar disorder, unspecified; F17.210 Nicotine dependence, cigarettes, uncomplicated; E11.9 Type 2 diabetes mellitus without complications; I10 Essential (primary) hypertension
CPT/HCPCS: 93005; 85025; 80048; 36415; 80320; 80329 ×2; 85610; 80076; 80164; 85730; 81003; 80307; J3480 ×2; J7030; J2405; J3490

== ENCOUNTER 2022-05-29 08:46 | Emergency (ER) | payer OTHER ==
--- OUTSIDE RECORDS SUMMARY | 2022-05-29 08:55 | XMS REPORT | Continuity of Care Document ---
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 [facility] of 17:04:00 [facility] MAGNESIUM 2022-04-28 [facility] 17:03:00 [facility] BASIC METABOLIC PANEL (NA, K, CL, 2022-04-28 [place], [facility] of CO2, GLUCOSE, BUN, CREATININE, CA) 17:03:00 [facility] BASIC METABOLIC PANEL (NA, K, CL, 2022-04-28 [place], [facility] of CO2, GLUCOSE, BUN, CREATININE, CA) 17:03:00 [facility] MAGNESIUM 2022-04-28 Maryjane [facility] of 17:03:00 [facility] BASIC METABOLIC PANEL (NA, K, CL, 2022-04-28 [place], [facility] of CO2, GLUCOSE, BUN, CREATININE, CA) 17:03:00 [facility] INTUBATION 2022-04-28 [facility] of 14:47:00 [facility] ESOPHAGOGASTRODUODENOSCOPY 2022-04-28 [facility] ersity of 14:27:00 K [facility] ESOPHAGOGASTRODUODENOSCOPY 2022-04-28 [facility] ersity of 14:27:00 K [facility] EGD (ENDO) 2022-04-28 [facility] of 14:21: [facility] EGD (ENDO) 2022-04-28 [facility] of 14:21:27 [facility] POTASSIUM SERUM 2022-04-27 [facility] of 22:05:00 [facility] BASIC METABOLIC PANEL (NA, K, CL, 2022-04-27 [facility], [facility] of CO2, GLUCOSE, BUN, CREATININE, CA) 22:05:00 [facility] POTASSIUM SERUM 2022-04-27 [facility] of 22:05:00 [facility] BASIC METABOLIC PANEL (NA, K, CL, 2022-04-27 [facility], [facility] of CO2, GLUCOSE, BUN, CREATININE, CA) 22:05:00 [facility] POTASSIUM SERUM 2022-04-27 [facility] of 22:05:00 [facility] BASIC METABOLIC PANEL (NA, K, CL, 2022-04-27 [place], [facility] of CO2, GLUCOSE, BUN, CREATININE, CA) 22:05:00 [facility] BASIC METABOLIC PANEL (NA, K, CL, 2022-04-27 Sanchez, [facility] of CO2, GLUCOSE, BUN, CREATININE, CA) 15:10:00 [facility] BASIC METABOLIC PANEL (NA, K, CL, 2022-04-27 Sanchez, [facility] of CO2, GLUCOSE, BUN, CREATININE, CA) 15:10:00 [facility] BASIC METABOLIC PANEL (NA, K, CL, 2022-04-27 Sanchez, [facility] of CO2, GLUCOSE, BUN, CREATININE, CA) 15:10:00 Angie [facility] COVID-19 (ID NOW RAPID TESTING) 2022-04-27 Charlotte Miranda of 00:04:00 [facility] LAB ONLY COVID INTERPRETATION 2022-04-27 Charlotte Miranda Un iversity of 00:04:00 [facility] COVID-19 (ID NOW RAPID TESTING) 2022-04-27 Charlotte Miranda of 00:04:00 [facility] LAB ONLY COVID INTERPRETATION 2022-04-27 Charlotte Miranda Un iversity of 00:04:00 [facility] COVID-19 (ID NOW RAPID TESTING) 2022-04-27 Charlotte Miranda of 00:04:00 [facility] LAB ONLY COVID INTERPRETATION 2022-04-27 Charlotte Miranda Un iversity of 00:04:00 [facility] CT THORAX W CONTRAST 2022-04-26 Charlotte Miranda [place] of 23:01:53 [facility] CT THORAX W CONTRAST 2022-04-26 [facility] 23:01:53 [facility] CT THORAX W CONTRAST 2022-04-26 [facility] of 23:01:53 [facility] LIPASE 2022-04-26 Charlotte Miranda [place] of 22:45:00 [facility] MAGNESIUM 2022-04-26 Maryjane [facility] of 22:45:00 [facility] TROPONIN I 2022-04-26 [facility] of 22:45:00 [facility] COMP. METABOLIC PANEL ([id number]) 2022-04-26 Charlotte Miranda Un iversity of 22:45:00 [facility] CBC WITH DIFF 2022-04-26 [facility] of 22:45:00 [facility] N-TERMINAL PRO-BNP 2022-04-26 Charlotte Miranda [place] of 22:45:00 [facility] CBC WITH DIFF 2022-04-26 [facility] of 22:45:00 [facility] TROPONIN I 2022-04-26 [facility] of 22:45:00 [facility] N-TERMINAL PRO-BNP 2022-04-26 Charlotte Miranda of 22:45:00 [facility] LIPASE 2022-04-26 [facility] of 22:45:00 [facility] COMP. METABOLIC PANEL ([id number]) 2022-04-26 Charlotte Miranda Un iversity of 22:45:00 [facility] MAGNESIUM 2022-04-26 [facility] of 22:45:00 [facility] LIPASE 2022-04-26 Charlotte Miranda [place] of 22:45:00 [facility] MAGNESIUM 2022-04-26 [facility] of 22:45:00 [facility] TROPONIN I 2022-04-26 [facility] of 22:45:00 [facility] COMP. METABOLIC PANEL ([id number]) 2022-04-26 Charlotte Miranda Un iversity of 22:45:00 [facility] CBC WITH DIFF 2022-04-26 Charlotte Miranda [place] of 22:45:00 [facility] N-TERMINAL PRO-BNP 2022-04-26 [facility] of 22:45:00 [facility] HB ECG ROUTINE & RHYTHM STRIP 2022-04-26 Charlotte Miranda Un iversity of 22:15:20 [facility] HB ECG ROUTINE & RHYTHM STRIP 2022-04-26 Charlotte Miranda Un iversity of 22:15:20 [facility] HB ECG ROUTINE & RHYTHM STRIP 2022-04-26 Charlotte Miranda Un iversity of 22:15:20 [facility] XR CHEST 1 VW 2022-04-26 Charlotte Miranda [place] of 21:18:17 [facility] XR CHEST 1 VW 2022-04-26 [facility] of 21:18:17 [facility] XR CHEST 1 VW 2022-04-26 [facility] of 21:18:17 [facility] CONSENT/REFUSAL FOR DIAGNOSIS AND 2022-04-26 [facility] 20:55:28 Unassigned, No [facility] CONSENT/REFUSAL FOR DIAGNOSIS AND 2022-04-26 [facility] 20:55:28 Unassigned, No [place] [facility] CONSENT/REFUSAL FOR DIAGNOSIS AND 2022-04-26 [facility] 20:55:28 Unassigned, No [facility] SURGICAL PATHOLOGY EXAM 2022-03-12 Negriot Simeon [facility] ty of 15:50:00 [facility] INTUBATION 2022-03-12 Юлия Sutton of 14:53:00 Dee Dee [facility] INGUINAL HERNIORRHAPHY 2022-03-12 Negrito Simeon [facility] y of 14:34:00 [facility] OPEN APPENDECTOMY 2022-03-12 Negrito Simeon [place] of 14:34:00 [facility] DAY SURGERY - ADC 2022-03-12 [place] of 05:01:00 Unassigned, No [facility] Name Branch CONSENT/REFUSAL FOR DIAGNOSIS AND 2022-03-09 [facility] 20:29:26 Unassigned, No [facility] Name Branch ASSIGNMENT OF BENEFITS 2022-03-09 [facility] y of 20:29:06 Unassigned, No [facility] Name Branch COVID-19 (ID NOW RAPID TESTING) 2022-03-09 Negrito Simeon [place] of 20:27:00 [facility] LAB ONLY COVID INTERPRETATION 2022-03-09 Negrito Simeon iversity of 20:27:00 [facility] NOTICE OF PRIVACY PRACTICES 2022-03-09 [facility] ersity of 20:22:10 Unassigned, No [facility] Name Branch CONSENT/REFUSAL FOR DIAGNOSIS AND 2022-03-09 [facility] 20:21:53 Unassigned, No [facility] Name Branch ASSIGNMENT OF BENEFITS 2022-03-09 [facility] of 20:21:32 Unassigned, No [facility] Name Branch DISCLOSURE AND CONSENT, MEDICAL 2022-03-05 [facility] AND SURGICAL PROCEDURES 05:01:00 Unassigned, No [facility] dical Name Branch INTUBATION 2022-02-25 Puma Sandy [place] of 17:01:00 [facility] HB ABO GROUPING 2022-02-25 Stephanie Galvez [place] of 15:52:00 [facility] CONSENT/REFUSAL FOR DIAGNOSIS AND 2022-02-25 [facility] 13:23:24 Unassigned, No [facility] Name Branch COVID-19 (ID NOW RAPID TESTING) 2022-02-25 Nathanael Whitlock of 13:18:00 [facility] LAB ONLY COVID INTERPRETATION 2022-02-25 Nathanael Whitlock Yusef iversity of 13:18:00 [facility] ASSIGNMENT OF BENEFITS 2022-02-25 Doctor Universit y of 13:04:20 Unassigned, No [place] [facility] [place] DAY SURGERY - [place] 2022-02-25 Doctor Universi ty of 05:01:00 Unassigned, No [place] [facility] [place] REFERRAL- REQUEST/RESPONSE 2022-02-18 Doctor Unive rsity of 05:01:00 Unassigned, No [facility] XR CHEST 2 VW 2022-02-04 Liv Boucher [place] of 20:28:00 [facility] CBC WITH DIFF 2022-02-04 [facility] of 20:11:00 [facility] BASIC METABOLIC PANEL (NA, K, CL, 2022-02-04 Liv Boucher [place] of CO2, GLUCOSE, BUN, CREATININE, CA) 20:11:00 [facility] HEPATIC FUNCTION PANEL (75067) 2022-02-04 Liv Boucher niversity of (ALB,T.PRO,BILI 20:11:00 [facility],BU/BC,ALT,AST,ALK PHOS) [place] PREALBUMIN, SERUM 2022-02-04 Liv Boucher [place] of 20:11:00 [facility] Plan of Care Planned Activity Planned Date Details Comments Source Future Scheduled Test 2021-07-24 00:00:00 IMM Influenza [facility] Seasonal Jul to December (>/= 19 yrs) [code = IMM Influenza Seasonal Jul to December (>/= 19 yrs)] Future Scheduled Test 1996 00:00:00 COVID-19 Vaccine (1) [facility] [code = COVID-19 Vaccine (1)] Encounters Start End Encounter Admission Attending Care Care Encounter Source Date/Time Date/Time Type Type Clinicians Facility Department ID 2022-05-18 Outpatient [facility] [id number] NE 14:53:18 [id number] [facility] 2022-01-18 Outpatient [facility] [id number] NE 04:45:38 [id number] [facility] 2020-10-06 Inpatient HCAPM JOSE [id number] [facility] 00:50:00 [id number] [facility] 2022-05-26 2022-05-26 Emergency X ISAEL [facility] ERT [id number] Univers 19:02:00 22:40:00 RADHALI ity of [facility] 2022-05-26 2022-05-26 Emergency Janene Taylor [facility] 1.2.840. 114 [id number] Univers 19:02:00 22:40:00 Cindy Akins 350.1.13.10 ity of JB 4.2.7.2.686 [facility] [id number] [facility] 084 Branch 2022-05-05 2022-05-05 Transition Araujo OSCARAna 1.2.840.114 [id number] Univers 00:00:00 00:00:00 of Care Henrietta WILSON 350.1.13.10 ity of MARC 4.2.7.2.686 [facility] [id number] [facility] 403 Branch 2022-04-26 2022-05-04 Inpatient X AMELIE FERNANDEZ [facility] [id number] Univers 16:01:00 12:18:00 AMELIE FERNANDEZ ity of [facility] 2022-04-26 2022-05-04 [facility] Ruth Charlotte [facility] 1.2.840.11 [id number] Univers 16:01:00 12:18:00 [facility] 350.1. 13.10 ity of [place] 4.2.7.2.686 [place] Amelie Fernandez [facility] [id number] [address] ([facility]) 2022-04-28 2022-04-28 Anesthesia Gayle Lino 1.2.840.1 [id number] Univers 09:38:00 10:28:00 Event Radu Schroeder 79102.1.1 ity of 3.104.2.7 [place] .3.841963 Medica l .8 Branch 2022-04-28 2022-04-28 Surgery Eber [facility] 1.2.840.114 [id number] Univers 09:30:00 10:01:00 Derrell NAJERA 350.1.13.10 ity of CARE 4.2.7.2.686 [facility] AT [id number] Co stephanie Miller [facility] 2022-04-27 2022-04-27 Anesthesia Fawn Johnson 1.2.840.1 [id number] Univers 12:29:50 12:29:50 Event Sabrina Sanchez 47703.1.1 ity of 3.104.2.7 [place] .3.130198 Medica l .8 [place] 2022-04-26 2022-04-26 Travel 1.2.840.1 1.2.087.440 [id number] Univers 00:00:00 00:00:00 35499.1.1 350.1.13.10 ity of 3.104.2.7 4.[place].7.3.698 [place] .3.567475 084.8 Medica l .8 [place] 2022-04-05 2022-04-05 Telephone Mitchell, 1.2.840.1 [id number] Univers 00:00:00 00:00:00 Mitzy 33588.1.1 ity of 3.104.2.7 [place] .3.561495 Medica l .8 [place] 2022-04-02 2022-04-02 Office [place], 1.2.840.0 [id number] Univers 11:45:00 11:45:00 Visit Negrito 78969.1.1 ity of [place] 3.104.2.7 [place] .3.611383 Medica l .8 [place] 2022-04-02 2022-04-02 Travel 1.2.840.1 1.2.124.484 [id number] Univers 00:00:00 00:00:00 73797.1.1 350.1.13.10 ity of 3.104.2.7 4.[place].7.3.698 [place] .3.113615 084.8 Medica l .8 [place] 2022-03-24 2022-03-24 Telephone Nathanael Whitlock 1.2.840.4 [id number] Univers 00:00:00 00:00:00 56821.1.1 ity of 3.104.2.7 [place] .3.170048 Medica l .8 Branch 2022-03-19 2022-03-19 Telephone Nathanael Whitlock 1.2.840.0 [id number] Univers 00:00:00 00:00:00 31044.1.1 ity of 3.104.2.7 [place] .3.174894 Medica l .8 Branch 2022-03-12 2022-03-12 Hospital [place], 1.2.840.5 [id number] Univers 08:13:00 16:20:00 Encounter Negrito 97432.1.1 it y of [place] 3.104.2.7 [place] .3.280846 Medica l .8 Branch 2022-03-12 2022-03-12 Anesthesia Carley Fregoso 1.2.840.1 [id number] Univers 09:44:00 12:14:00 Event Richard Granados 54859.1.1 ity of 3.104.2.7 [place] .3.866975 Medica l .8 Branch 2022-03-12 2022-03-12 Surgery [place], 1.2.840.8 [id number] Univers 09:54:00 12:12:00 Negrito 66342.1.1 ity of [place] 3.104.2.7 [place] .3.821447 Medica l .8 [place] 2022-03-09 2022-03-09 Laboratory Negrito Simeon 1.2.840.2 [id number] Univers 10:15:00 10:30:00 Only Only, Adc Test 83023.1.1 ity of 3.104.2.7 [place] .3.064886 Medica l .8 Branch 2022-03-09 2022-03-09 Travel 1.2.840.1 1.2.800.100 [id number] Univers 00:00:00 00:00:00 42772.1.1 350.1.13.10 ity of 3.104.2.7 4.2.7.3.698 [place] .3.455535 084.8 Medica l .8 Branch 2022-03-05 2022-03-05 Office Walker, 1.2.840.9 [id number] Univers 10:15:00 12:01:28 Visit Negrito 78626.1.1 ity of [place] 3.104.2.7 [place] .3.844349 Medica l .8 Branch 2022-02-25 2022-02-25 Hospital [facility] [place] 1.2.840.9 [id number] Univers 08:04:00 13:21:00 Encounter 07292.1.1 it y of 3.104.2.7 [place] .3.360525 Medica l .8 Branch 2022-02-25 2022-02-25 Surgery [facility] [place] 1.2.840.6 [id number] Univers 09:35:00 12:45:00 40428.1.1 ity of 3.104.2.7 [place] .3.172809 Medica l .8 Branch 2022-02-25 2022-02-25 Anesthesia Yung Arita 1.2.840.2 [id number] Univers 11:53:00 12:33:00 Event Francis Wong 48626.1.1 ity of 3.104.2.7 [place] .3.518718 Medica l .8 Branch 2022-02-24 2022-02-24 Travel 1.2.840.1 1.2.747.442 [id number] Univers 00:00:00 00:00:00 26629.1.1 350.1.13.10 ity of 3.104.2.7 4.2.7.3.698 [place] .3.317002 084.8 Medica l .8 Branch 2022-02-18 2022-02-18 Orders Doctor 1.2.840.6 [id number] Univers 00:00:00 00:00:00 Only Unassigned, 55598.1.1 ity of [place] 3.104.2.7 [place] .3.365684 Medica l .8 Branch 2022-02-15 2022-02-15 Telephone [place], 1.2.840.8 [id number] Univers 00:00:00 00:00:00 Stephanie Rose 60601.1.1 it y of 3.104.2.7 [place] .3.122910 Medica l .8 [place] 2022-02-09 2022-02-09 Telephone [place], 1.2.840.0 [id number] Univers 00:00:00 00:00:00 Stephanie Rose 70164.1.1 it y of 3.104.2.7 [place] .3.295252 Medica l .8 [place] 2022-02-08 2022-02-08 Case [place], 1.2.840.5 [id number] Univers 00:00:00 00:00:00 Management Stephanie Rose 34652.1.1 ity of 3.104.2.7 [place] .3.174382 Medica l .8 [place] 2022-02-04 2022-02-04 Hospital Kamlesh, Gal 1.2.840.5 [id number] Univers 15:17:56 23:59:00 Encounter 84464.1.1 it y of 3.104.2.7 [place] .3.641966 Medica l .8 [place] 2022-02-04 2022-02-04 Behavioral Analyst Kamlesh [place] 1.2.840.8 [id number] Univers 15:30:00 15:47:42 Visit [facility] 18482.1.1 ity of 3.104.2.7 [place] .3.331253 Medica l .8 [place] 2022-02-04 2022-02-04 Office Kamlesh, Gal 1.2.840.3 [id number] Univers 13:30:00 14:38:59 Visit 29721.1.1 ity of 3.104.2.7 [place] .3.815651 Medica l .8 [place] 2022-02-04 2022-02-04 Travel 1.2.840.1 1.2.896.611 [id number] Univers 00:00:00 00:00:00 52974.1.1 350.1.13.10 ity of 3.104.2.7 4.2.7.3.698 [place] .3.286773 084.8 Medica l .8 Branch 2021-05-25 2021-05-26 Emergency Janene Taylor [facility] 1.2.840.114 [id number] 18:28:00 00:07:00 Misa Marreroton 350.1.13.10 [place] 4.2.7.2.686 [place] [id number] 2020-12-19 2020-12-19 Orders Doctor NEGRITO 1.2.840.114 [id number] 00:00:00 00:00:00 Only UnassignedNAMRATA 350.1.13.10 [place] [facility] 4.2.7.2.686 [id number] 2020-11-28 2020-11-28 Patient Sharon Bunn 1.2.840.114 [id number] 00:00:00 00:00:00 Outreach Micki Wilson 350.1.13.10 [place] 4.2.7.2.686 [id number] 2020-11-27 2020-11-27 Telephone Jeff Angie 1.2.757.598 [id number] 00:00:00 00:00:00 Gianni Teresa 350.1.13.10 [facility] 4.2.7.2.686 [id number] 2020-10-06 2020-10-06 Outpatient BEE Garcia [id number] [facility] 23:33:00 23:33:00 [facility] [id number] [facility] Results Test Description Test Time Test Comments Results Result Comments Source COMP. METABOLIC PANEL (91968) 2022-05-27 01:04:32 Test Item Value Reference Range Interpretation Comme nts NA (test code = 0603482715) 135 mmol/L 135-145 K (test code = 2496813942) 2.3 mmol/L 3.5-5 LL CL (test code = 2483120117) 102 mmol/L 98-108 CO2 TOTAL (test code = 6218192792) 21 mmol/L 23-31 L AGAP (test code = 7058036472) 2-16 BUN (test code = 4011236645) 5 mg/dL 7-23 L GLUCOSE (test code = 5105720541) 142 mg/dL 70-110 H CREATININE (test code = 0.68 mg/dL 0.6-1.25 0475487167) TOTAL BILI (test code = 0.6 mg/dL 0.1-1.4 3919521133) CALCIUM (test code = 2368667476) 7.9 mg/dL 8.6-10.6 L T PROTEIN (test code = 8854109601) 7.3 g/dL 6.3-8.2 ALBUMIN (test code = 0299906110) 3.2 g/dL 3.5-5 L ALK PHOS (test code = 9542857140) 100 U/L 34-122 ALTv (test code = 1742-6) 13 U/L 5-50 AST(SGOT) (test code = 0724947383) 17 U/L 13-40 eGFR (test code = 4433279163) mL/min/1.73m2 LU (test code = LU) Association of Glomerular Filtration Rate (GFR) and Staging of Kidney Disease* + +------- + --------+| GFR (mL/min/1.73 m2) ?| With Kidney Damage ?| ?Without Kidney Damage+ +- + +| ?>90 ?| ?Stage one ?| ? Normal ?+ +------ + ---------+| ?60-89 ?| ?Stage two ?| ? Decreased GFR ? + +------- + --------+| ?30-59 ?| ?Stage three ?| ? Stage three ? + +------- + --------+| ?15-29 ?| ?Stage four ? | ? Stage four ?+ +------ + ---------+| ?<15 (or dialysis) ? ?| ?Stage five ? | ? Stage five ?+ +------ + ---------+ *Each stage assumes the associated GFR level [...] tests). Lab Interpretation (test code = Abnormal 70831-8) [facility] WITH [id number] 00:45:16 Test Item Value Reference Range Interpretation Comments [...] as normal/abnormal . HGB (test code = 11.4 g/dL 12.2-16.4 L 718-7) HCT (test code = 34.8 % 38.4-49.3 L 4544-3) MCV (test code = 88.5 fL 81.7-95.6 787-2) MCH (test code = 29.0 pg 26.1-32.7 785-6) MCHC (test code = 32.8 g/dL 31.2-35 786-4) RDW-SD (test code = 49.6 fL 38.5-51.6 56342-4) RDW-CV (test code = 15.1 % 12.1-15.4 788-0) PLT (test code = See_Comment [Automated 777-3) message] The sy stem which generated this result transmitted reference range : 150 - 328 10*3/ ?L. The reference r alisson was not used to interpret this result as normal/abnormal . MPV (test code = 11.2 fL 9.8-13 34154-9) NRBC/100 WBC (test See_Comment [Automat ed code = 0566866138) message] The system which generated this result transmitted reference range : 0.0 - 10.0 /100 WBCs. The refer ence range was not u sed to interpret th is result as normal/abnormal . NRBC x10^3 (test code See_Comment [Auto mated = [id number]) message] The s ystem which generated this result transmitted reference range : 10*3/?L. The reference range was not used to interpret this result as normal/abnormal . GRAN MAT (NEUT) % 72.3 % (test code = 770-8) IMM GRAN % (test code 0.20 % = [id number]) LYMPH % (test code = 19.9 % 736-9) MONO % (test code = 6.3 % 5905-5) EOS % (test code = 1.0 % 713-8) BASO % (test code = 0.3 % 706-2) GRAN MAT x10^3(ANC) 6.43 10*3/uL 1.99-6.95 (test code = [id number]) IMM GRAN x10^3 (test 0-0.06 code = [id number]) LYMPH x10^3 (test code 1.77 10*3/uL 1.09-3.23 = 731-0) MONO x10^3 (test code 0.56 10*3/uL 0.36-1.02 = 742-7) EOS x10^3 (test code = 0.09 10*3/uL 0.06-0.53 711-2) BASO x10^3 (test code 0.03 10*3/uL 0.01-0.09 = 704-7) Lab Interpretation Abnormal (test code = 86556-4) [facility] METABOLIC PANEL (NA, K, CL, CO2, GLUCOSE, BUN, CREATININE, CA)2022-04-29 10:41:04 Test Item Value Reference Range Interpretation Comments NA (test code = 141 mmol/L 135-145 4634962757) K (test code = 4.1 mmol/L 3.5-5 5508229046) CL (test code = 113 mmol/L 98-108 H 7378058303) CO2 TOTAL (test code = 26 mmol/L 23-31 5410629010) AGAP (test code = 2-16 3890888924) BUN (test code = 2 mg/dL 7-23 L 0716264848) GLUCOSE (test code = 77 mg/dL 70-110 5560043444) CREATININE (test code = 0.43 mg/dL 0.6-1.25 L 6552688704) CALCIUM (test code = 7.5 mg/dL 8.6-10.6 L 4239647739) eGFR (test code = mL/min/1.73m2 1031689646) LU (test code = LU) Association of [...] tests). Lab Interpretation Abnormal (test code = 24573-0) [facility] METABOLIC PANEL (NA, K, CL, CO2, GLUCOSE, BUN, CREATININE, CA)2022-04-29 10:41:04 Test Item Value Reference Range Interpretation Comments NA (test code = 141 mmol/L 135-145 5651952114) K (test code = 4.1 mmol/L 3.5-5.0 4398702481) CL (test code = 113 mmol/L 98-108 H 9880266847) CO2 TOTAL (test code = 26 mmol/L 23-31 4842639749) AGAP (test code = 2-16 0130911147) BUN (test code = 2 mg/dL 7-23 L 6522674966) GLUCOSE (test code = 77 mg/dL 70-110 1798722408) CREATININE (test code = 0.43 mg/dL 0.60-1.25 L 7732251565) CALCIUM (test code = 7.5 mg/dL 8.6-10.6 L 6250440722) eGFR (test code = mL/min/1.73m2 7381888955) LU (test code = LU) Association of [...] tests). Lab Interpretation Abnormal (test code = 49872-9) [facility] Test Item Value Reference Range Interpretation Comments MAGNESIUM (test code = 3106149407) 1.7 mg/dL 1.7-2.4 Lab Interpretation (test code = Normal 91481-7) [facility] Test Item Value Reference Range Interpretation Comments MAGNESIUM (test code = 4202317488) 1.7 mg/dL 1.7-2.4 Lab Interpretation (test code = Normal 90298-2) [facility] (NA, K, CL, CO2, GLUCOSE, BUN, CREATININE, CA)2022-04-28 17:52:13 Test Item Value Reference Range Interpretation Comments NA (test code = 142 mmol/L 135-145 0287065207) K (test code = 2.6 mmol/L 3.5-5 LL 6401375041) CL (test code = 109 mmol/L 98-108 H 4960351276) CO2 TOTAL (test code = 26 mmol/L 23-31 4378478870) AGAP (test code = 2-16 9658304129) BUN (test code = 3 mg/dL 7-23 L 5243081950) GLUCOSE (test code = 95 mg/dL 70-110 7251294782) CREATININE (test code = 0.57 mg/dL 0.6-1.25 L 4164197196) CALCIUM (test code = 7.6 mg/dL 8.6-10.6 L 8638782274) eGFR (test code = mL/min/1.73m2 5685957844) LU (test code = LU) Association of [...] tests). Lab Interpretation Abnormal (test code = 88267-6) [facility] METABOLIC PANEL (NA, K, CL, CO2, GLUCOSE, BUN, CREATININE, CA)2022-04-28 17:52:13 Test Item Value Reference Range Interpretation Comments NA (test code = 142 mmol/L 135-145 4019381370) K (test code = 2.6 mmol/L 3.5-5.0 LL 1723748903) CL (test code = 109 mmol/L 98-108 H 1122309659) CO2 TOTAL (test code = 26 mmol/L 23-31 1572751487) AGAP (test code = 2-16 4190414020) BUN (test code = 3 mg/dL 7-23 L 4288628322) GLUCOSE (test code = 95 mg/dL 70-110 2766829073) CREATININE (test code = 0.57 mg/dL 0.60-1.25 L 2118991834) CALCIUM (test code = 7.6 mg/dL 8.6-10.6 L 7233079211) eGFR (test code = mL/min/1.73m2 9799367393) LU (test code = LU) Association of [...] tests). Lab Interpretation Abnormal (test code = 15975-4) [facility] METABOLIC PANEL (NA, K, CL, CO2, GLUCOSE, BUN, CREATININE, CA)2022-04-28 17:52:13 Test Item Value Reference Range Interpretation Comments NA (test code = 142 mmol/L 135-145 0845125667) K (test code = 2.6 mmol/L 3.5-5.0 LL 1635452511) CL (test code = 109 mmol/L 98-108 H 1075615191) CO2 TOTAL (test code = 26 mmol/L 23-31 4497557048) AGAP (test code = 2-16 4165893058) BUN (test code = 3 mg/dL 7-23 L 6216612861) GLUCOSE (test code = 95 mg/dL 70-110 1823506876) CREATININE (test code = 0.57 mg/dL 0.60-1.25 L 5405102892) CALCIUM (test code = 7.6 mg/dL 8.6-10.6 L 7207024044) eGFR (test code = mL/min/1.73m2 0709333053) LU (test code = LU) Association of [...] tests). Lab Interpretation Abnormal (test code = 92897-2) [facility] WITHOUT [id number] 17:16:02 Test Item Value Reference Range Interpretation Comments WBC (test code = 6690-2) See_Comment [A utomated message] The system [employer] generated this result transmit annette reference range : 4.20 - 10.70 10*3/?L. The reference range was not used to interpret this result as normal/abnormal . RBC (test code = 789-8) See_Comment L [Au tomated message] The system [employer] generated this result transmit annette reference range [...] 777-3) See_Comment [Au tomated message] The system [employer] generated this result transmit annette reference range : 150 - 328 10*3/?L. The reference range was not used to interpret this result as normal/abnormal . MPV (test code = 10.7 fL 9.8-13 24433-9) RDW-CV (test code = 14.9 % 12.1-15.4 788-0) RDW-SD (test code = 48.9 fL 38.5-51.6 19066-5) NRBC x10^3 (test code = See_Comment [Au tomated message] 1306489269) The system [employer] generated this result transmit annette reference range : 10*3/?L. The reference range was not used to interpret this result as normal/abnormal . NRBC/100 WBC (test code See_Comment [Au tomated message] = 1313810452) The system [facility] generated this result transmit annette reference range : 0.0 - 10.0 /100 WBC s. The reference r alisson was not used to interpret this result as normal/abnormal . IPF % (test code = 3778862285) Lab Interpretation (test Abnormal code = 52398-0) [facility] WITHOUT [id number] 17:16:02 Test Item Value Reference Range Interpretation Comments WBC (test code = 6690-2) See_Comment [A utomated message] The system [employer] generated this result transmit annette reference range : 4.20 - 10.70 10*3/?L. The reference range was not used to interpret this result as normal/abnormal . RBC (test code = 789-8) See_Comment L [Au tomated message] The system [employer] generated this result transmit annette reference range [...] 777-3) See_Comment [Au tomated message] The system [employer] generated this result transmit annette reference range : 150 - 328 10*3/?L. The reference range was not used to interpret this result as normal/abnormal . MPV (test code = 10.7 fL 9.8-13.0 17858-0) RDW-CV (test code = 14.9 % 12.1-15.4 788-0) RDW-SD (test code = 48.9 fL 38.5-51.6 26234-2) NRBC x10^3 (test code = <0.01 See_Comment [Au tomated message] 9686957033) The system [employer] generated this result transmit annette reference range : 10*3/?L. The reference range was not used to interpret this result as normal/abnormal . NRBC/100 WBC (test code See_Comment [Au tomated message] = 6578102234) The system [facility] generated this result transmit annette reference range : 0.0 - 10.0 /100 WBC s. The reference r alisson was not used to interpret this result as normal/abnormal . IPF % (test code = 0141286419) Lab Interpretation (test Abnormal code = 12872-0) [facility] WITHOUT [id number] 17:16:02 Test Item Value Reference Range Interpretation Comments WBC (test code = 6690-2) See_Comment [A utomated message] The system [facility] generated this result transmit annette reference range : 4.20 - 10.70 10*3/?L. The reference range was not used to interpret this result as normal/abnormal . RBC (test code = 789-8) See_Comment L [Au tomated message] The system [facility] generated this result transmit annette reference range [...] 777-3) See_Comment [Au tomated message] The system [facility] generated this result transmit annette reference range : 150 - 328 10*3/?L. The reference range was not used to interpret this result as normal/abnormal . MPV (test code = 10.7 fL 9.8-13.0 81616-1) RDW-CV (test code = 14.9 % 12.1-15.4 788-0) RDW-SD (test code = 48.9 fL 38.5-51.6 43601-3) NRBC x10^3 (test code = <0.01 See_Comment [Au tomated message] 9161669669) The system [employer] generated this result transmit annette reference range : 10*3/?L. The reference range was not used to interpret this result as normal/abnormal . NRBC/100 WBC (test code See_Comment [Au tomated message] = 9058229462) The system [facility] generated this result transmit annette reference range : 0.0 - 10.0 /100 WBC s. The reference r alisson was not used to interpret this result as normal/abnormal . IPF % (test code = 9295057756) Lab Interpretation (test Abnormal code = 41413-5) [facility] [id number] 22:31:26 Test Item Value Reference Range Interpretation Comments K (test code = 3835162952) 3.3 mmol/L 3.5-5 L Lab Interpretation (test code = Abnormal 69365-5) [facility] METABOLIC PANEL (NA, K, CL, CO2, GLUCOSE, BUN, CREATININE, CA)2022-04-27 22:31:26 Test Item Value Reference Range Interpretation Comments NA (test code = 144 mmol/L 135-145 8905212950) K (test code = 3.3 mmol/L 3.5-5 L 3144860782) CL (test code = 112 mmol/L 98-108 H 5237290581) CO2 TOTAL (test code = 27 mmol/L 23-31 7545769461) AGAP (test code = 2-16 2199530485) BUN (test code = 5 mg/dL 7-23 L 7408111949) GLUCOSE (test code = 118 mg/dL 70-110 H 1816574886) CREATININE (test code = 0.63 mg/dL 0.6-1.25 4269234679) CALCIUM (test code = 7.6 mg/dL 8.6-10.6 L 4692524901) eGFR (test code = mL/min/1.73m2 6856763547) LU (test code = LU) Association of [...] tests). Lab Interpretation Abnormal (test code = 34987-5) [facility] [id number] 22:31:26 Test Item Value Reference Range Interpretation Comments K (test code = 3312336847) 3.3 mmol/L 3.5-5.0 L Lab Interpretation (test code = Abnormal 65573-7) [facility] [id number] 22:31:26 Test Item Value Reference Range Interpretation Comments K (test code = 4613239394) 3.3 mmol/L 3.5-5.0 L Lab Interpretation (test code = Abnormal 95419-0) [facility] (NA, K, CL, CO2, GLUCOSE, BUN, CREATININE, CA)2022-04-27 22:31:26 Test Item Value Reference Range Interpretation Comments NA (test code = 144 mmol/L 135-145 5363669998) K (test code = 3.3 mmol/L 3.5-5.0 L 8898915464) CL (test code = 112 mmol/L 98-108 H 5087074744) CO2 TOTAL (test code = 27 mmol/L 23-31 6318639999) AGAP (test code = 2-16 3746022548) BUN (test code = 5 mg/dL 7-23 L 7374452826) GLUCOSE (test code = 118 mg/dL 70-110 H 9871908561) CREATININE (test code = 0.63 mg/dL 0.60-1.25 0133189568) CALCIUM (test code = 7.6 mg/dL 8.6-10.6 L 0072312118) eGFR (test code = mL/min/1.73m2 3748513680) LU (test code = LU) Association of [...] tests). Lab Interpretation Abnormal (test code = 74123-1) [facility]2022-07-05 21:22:49 Test Item Value Reference Range Interpretation Comments MAGNESIUM (test code = 7579600268) 2.1 mg/dL 1.7-2.4 Lab Interpretation (test code = Normal 49498-8) [facility]2022-07-05 21:22:49 Test Item Value Reference Range Interpretation Comments MAGNESIUM (test code = 4359117419) 2.1 mg/dL 1.7-2.4 Lab Interpretation (test code = Normal 72123-3) [facility]2022-07-05 21:22:49 Test Item Value Reference Range Interpretation Comments MAGNESIUM (test code = 1690665445) 2.1 mg/dL 1.7-2.4 Lab Interpretation (test code = Normal 13356-6) [facility] (NA, K, CL, CO2, GLUCOSE, BUN, CREATININE, CA)2022-04-27 15:50:29 Test Item Value Reference Range Interpretation Comments NA (test code = 143 mmol/L 135-145 1229383989) K (test code = 2.4 mmol/L 3.5-5 LL 6310105076) CL (test code = 110 mmol/L 98-108 H 7254009869) CO2 TOTAL (test code = 28 mmol/L 23-31 6525298302) AGAP (test code = 2-16 9281268428) BUN (test code = 4 mg/dL 7-23 L 1171155437) GLUCOSE (test code = 56 mg/dL 70-110 L 7839668522) CREATININE (test code = 0.65 mg/dL 0.6-1.25 7079626141) CALCIUM (test code = 7.7 mg/dL 8.6-10.6 L 8526841663) eGFR (test code = mL/min/1.73m2 5682964663) LU (test code = LU) Association of [...] tests). Lab Interpretation Abnormal (test code = 93075-5) [facility] METABOLIC PANEL (NA, K, CL, CO2, GLUCOSE, BUN, CREATININE, CA)2022-04-27 15:50:29 Test Item Value Reference Range Interpretation Comments NA (test code = 143 mmol/L 135-145 2853161581) K (test code = 2.4 mmol/L 3.5-5.0 LL 7656946511) CL (test code = 110 mmol/L 98-108 H 2810408052) CO2 TOTAL (test code = 28 mmol/L 23-31 0901430239) AGAP (test code = 2-16 9774978091) BUN (test code = 4 mg/dL 7-23 L 3378576910) GLUCOSE (test code = 56 mg/dL 70-110 L 3601620282) CREATININE (test code = 0.65 mg/dL 0.60-1.25 1088879340) CALCIUM (test code = 7.7 mg/dL 8.6-10.6 L 0436999416) eGFR (test code = mL/min/1.73m2 8296850059) LU (test code = LU) Association of [...] tests). Lab Interpretation Abnormal (test code = 49673-5) [facility] [id number] 23:23:37 Test Item Value Reference Interpretation Comments Range TROPONIN I (test 0.007 ng/mL See_Comment [Automated code = 5183549800) message] The system which generated this result [...] biotin. Lab Interpretation Normal (test code = 30022-7) [facility]. METABOLIC PANEL ([id number])2022-04-26 23:23:37 Test Item Value Reference Range Interpretation Comments NA (test code = 143 mmol/L 135-145 6083355814) K (test code = 2.3 mmol/L 3.5-5 LL 8177202038) CL (test code = 107 mmol/L 98-108 5022541005) CO2 TOTAL (test code = 27 mmol/L 23-31 6730092735) AGAP (test code = 2-16 4578566918) BUN (test code = 4 mg/dL 7-23 L 0180311689) GLUCOSE (test code = 86 mg/dL 70-110 8185121601) CREATININE (test code = 0.73 mg/dL 0.6-1.25 3541434154) TOTAL BILI (test code = 0.7 mg/dL 0.1-1.1 2338898244) CALCIUM (test code = 7.6 mg/dL 8.6-10.6 L 1666794581) T PROTEIN (test code = 6.5 g/dL 6.3-8.2 0970783453) ALBUMIN (test code = 2.7 g/dL 3.5-5 L 1923678459) ALK PHOS (test code = 96 U/L 34-122 4432145868) ALTv (test code = 13 U/L 5-50 1742-6) AST(SGOT) (test code = 22 U/L 13-40 5897534196) eGFR (test code = mL/min/1.73m2 9992183107) LU (test code = LU) Association of [...] tests). Lab Interpretation Abnormal (test code = 69238-2) [facility] [id number] 23:23:37 Test Item Value Reference Interpretation Comments Range TROPONIN I (test 0.007 ng/mL See_Comment [Automated code = 4765805422) message] The system which generated this result [...] biotin. Lab Interpretation Normal (test code = 89091-8) [facility]. METABOLIC PANEL ([id number])2022-04-26 23:23:37 Test Item Value Reference Range Interpretation Comments NA (test code = 143 mmol/L 135-145 9384334363) K (test code = 2.3 mmol/L 3.5-5.0 LL 9316677889) CL (test code = 107 mmol/L 98-108 3403007429) CO2 TOTAL (test code = 27 mmol/L 23-31 9083598768) AGAP (test code = 2-16 9950063168) BUN (test code = 4 mg/dL 7-23 L 1031664510) GLUCOSE (test code = 86 mg/dL 70-110 8152940731) CREATININE (test code = 0.73 mg/dL 0.60-1.25 7133983107) TOTAL BILI (test code = 0.7 mg/dL 0.1-1.1 8330871893) CALCIUM (test code = 7.6 mg/dL 8.6-10.6 L 4651173012) T PROTEIN (test code = 6.5 g/dL 6.3-8.2 0560885791) ALBUMIN (test code = 2.7 g/dL 3.5-5.0 L 2521711670) ALK PHOS (test code = 96 U/L 34-122 9794586223) ALTv (test code = 13 U/L 5-50 1742-6) AST(SGOT) (test code = 22 U/L 13-40 4909641749) eGFR (test code = mL/min/1.73m2 2259892970) LU (test code = LU) Association of [...] tests). Lab Interpretation Abnormal (test code = 74523-3) [facility]SYD [id number] 23:23:37 Test Item Value Reference Interpretation Comments Range TROPONIN I (test 0.007 ng/mL See_Comment [Automated code = 5244647490) message] The system which generated this result [...] biotin. Lab Interpretation Normal (test code = 59573-2) [facility]. METABOLIC PANEL ([id number])2022-04-26 23:23:37 Test Item Value Reference Range Interpretation Comments NA (test code = 143 mmol/L 135-145 3811281157) K (test code = 2.3 mmol/L 3.5-5.0 LL 2270187790) CL (test code = 107 mmol/L 98-108 8954543013) CO2 TOTAL (test code = 27 mmol/L 23-31 8665212148) AGAP (test code = 2-16 9295707857) BUN (test code = 4 mg/dL 7-23 L 1673632533) GLUCOSE (test code = 86 mg/dL 70-110 2008506239) CREATININE (test code = 0.73 mg/dL 0.60-1.25 5468879846) TOTAL BILI (test code = 0.7 mg/dL 0.1-1.0 9039703240) CALCIUM (test code = 7.6 mg/dL 8.6-10.6 L 0445956005) T PROTEIN (test code = 6.5 g/dL 6.3-8.2 6262251935) ALBUMIN (test code = 2.7 g/dL 3.5-5.0 L 2067068609) ALK PHOS (test code = 96 U/L 34-122 2918056321) ALTv (test code = 13 U/L 5-50 1742-6) AST(SGOT) (test code = 22 U/L 13-40 9814890320) eGFR (test code = mL/min/1.73m2 0507259736) LU (test code = LU) Association of [...] tests). Lab Interpretation Abnormal (test code = 41900-3) [facility] [id number] 23:20:37 Test Item Value Reference Range Interpretation Comments NT-proBNP (test code 393 pg/mL See_Comment H [Autom ated = 8635490134) message] The system which generated this result transmitted reference range : <=125. The reference range was not used to interpret this result as normal/abnormal . LU (test code = LU) Biotin has been reported to cause a negative bias, interpret results relative to patient's use of biotin. Lab Interpretation Abnormal (test code = 03523-1) [facility] [id number] 23:20:37 Test Item Value Reference Range Interpretation Comments NT-proBNP (test code 393 pg/mL See_Comment H [Autom ated = 4573598137) message] The system which generated this result transmitted reference range : <=125. The reference range was not used to interpret this result as normal/abnormal . LU (test code = LU) Biotin has been reported to cause a negative bias, interpret results relative to patient's use of biotin. Lab Interpretation Abnormal (test code = 45233-0) [facility] [id number] 23:20:37 Test Item Value Reference Range Interpretation Comments NT-proBNP (test code 393 pg/mL See_Comment H [Autom ated = 1083849950) message] The system which generated this result transmitted reference range : <=125. The reference range was not used to interpret this result as normal/abnormal . LU (test code = UL) Biotin has been reported to cause a negative bias, interpret results relative to patient's use of biotin. Lab Interpretation Abnormal (test code = 51993-9) [facility] 23:11:39 Test Item Value Reference Range Interpretation Comments LIPASE (test code = 2744951413) 78 U/L 0-220 Lab Interpretation (test code = Normal 91107-5) [facility] 23:11:39 Test Item Value Reference Range Interpretation Comments LIPASE (test code = 3089594209) 78 U/L 0-220 Lab Interpretation (test code = Normal 75401-3) [facility] 23:11:39 Test Item Value Reference Range Interpretation Comments LIPASE (test code = 8388985955) 78 U/L 0-220 Lab Interpretation (test code = Normal 91668-8) [facility] WITH [id number] 22:55:18 Test Item Value Reference Range Interpretation [...] RDW-SD (test code = 45.2 fL 38.5-51.6 17509-5) RDW-CV (test code = 14.3 % 12.1-15.4 788-0) PLT (test code = See_Comment [Automated 777-3) message] The sy stem which generated this result transmitted reference range : 150 - 328 10*3/ ?L. The reference r alisson was not used to interpret this result as normal/abnormal . MPV (test code = 10.5 fL 9.8-13 52942-9) NRBC/100 WBC (test See_Comment [Automat ed code = 3969389195) message] The system which generated this result transmitted reference range : 0.0 - 10.0 /100 WBCs. The refer ence range was not u sed to interpret th is result as normal/abnormal . NRBC x10^3 (test code See_Comment [Auto mated = 8490156126) message] The s ystem which generated this result transmitted reference range : 10*3/?L. The reference range was not used to interpret this result as normal/abnormal . GRAN MAT (NEUT) % 73.6 % (test code = 770-8) IMM GRAN % (test code 0.30 % = 4579314122) LYMPH % (test code = 20.6 % 736-9) MONO % (test code = 4.9 % 5905-5) EOS % (test code = 0.3 % 713-8) BASO % (test code = 0.3 % 706-2) GRAN MAT x10^3(ANC) 6.49 10*3/uL 1.99-6.95 (test code = 3865005370) IMM GRAN x10^3 (test 0.03 10*3/uL 0-0.06 code = 8898061547) LYMPH x10^3 (test code 1.82 10*3/uL 1.09-3.23 = 731-0) MONO x10^3 (test code 0.43 10*3/uL 0.36-1.02 = 742-7) EOS x10^3 (test code = 0.03 10*3/uL 0.06-0.53 L 711-2) BASO x10^3 (test code 0.03 10*3/uL 0.01-0.09 = 704-7) Lab Interpretation Abnormal (test code = 49603-5) [facility] WITH [id number] 22:55:18 Test Item Value Reference Range Interpretation [...] RDW-SD (test code = 45.2 fL 38.5-51.6 39972-4) RDW-CV (test code = 14.3 % 12.1-15.4 788-0) PLT (test code = See_Comment [Automated 777-3) message] The sy stem which generated this result transmitted reference range : 150 - 328 10*3/ ?L. The reference r alisson was not used to interpret this result as normal/abnormal . MPV (test code = 10.5 fL 9.8-13.0 82157-1) NRBC/100 WBC (test See_Comment [Automat ed code = 4138602374) message] The system which generated this result transmitted reference range : 0.0 - 10.0 /100 WBCs. The refer ence range was not u sed to interpret th is result as normal/abnormal . NRBC x10^3 (test code <0.01 See_Comment [Auto mated = 5887938060) message] The s ystem which generated this result transmitted reference range : 10*3/?L. The reference range was not used to interpret this result as normal/abnormal . GRAN MAT (NEUT) % 73.6 % (test code = 770-8) IMM GRAN % (test code 0.30 % = 4858906453) LYMPH % (test code = 20.6 % 736-9) MONO % (test code = 4.9 % 5905-5) EOS % (test code = 0.3 % 713-8) BASO % (test code = 0.3 % 706-2) GRAN MAT x10^3(ANC) 6.49 10*3/uL 1.99-6.95 (test code = 2949495057) IMM GRAN x10^3 (test 0.03 10*3/uL 0.00-0.06 code = 1018800235) LYMPH x10^3 (test code 1.82 10*3/uL 1.09-3.23 = 731-0) MONO x10^3 (test code 0.43 10*3/uL 0.36-1.02 = 742-7) EOS x10^3 (test code = 0.03 10*3/uL 0.06-0.53 L 711-2) BASO x10^3 (test code 0.03 10*3/uL 0.01-0.09 = 704-7) Lab Interpretation Abnormal (test code = 18923-2) [facility] WITH [id number] 22:55:18 Test Item Value Reference Range Interpretation [...] RDW-SD (test code = 45.2 fL 38.5-51.6 48437-3) RDW-CV (test code = 14.3 % 12.1-15.4 788-0) PLT (test code = See_Comment [Automated 777-3) message] The sy stem which generated this result transmitted reference range : 150 - 328 10*3/ ?L. The reference r alisson was not used to interpret this result as normal/abnormal . MPV (test code = 10.5 fL 9.8-13.0 32832-7) NRBC/100 WBC (test See_Comment [Automat ed code = 6619920397) message] The system which generated this result transmitted reference range : 0.0 - 10.0 /100 WBCs. The refer ence range was not u sed to interpret th is result as normal/abnormal . NRBC x10^3 (test code <0.01 See_Comment [Auto mated = 0690054666) message] The s ystem which generated this result transmitted reference range : 10*3/?L. The reference range was not used to interpret this result as normal/abnormal . GRAN MAT (NEUT) % 73.6 % (test code = 770-8) IMM GRAN % (test code 0.30 % = 2672250984) LYMPH % (test code = 20.6 % 736-9) MONO % (test code = 4.9 % 5905-5) EOS % (test code = 0.3 % 713-8) BASO % (test code = 0.3 % 706-2) GRAN MAT x10^3(ANC) 6.49 10*3/uL 1.99-6.95 (test code = [id number]) IMM GRAN x10^3 (test 0.03 10*3/uL 0.00-0.06 code = [id number]) LYMPH x10^3 (test code 1.82 10*3/uL 1.09-3.23 = 731-0) MONO x10^3 (test code 0.43 10*3/uL 0.36-1.02 = 742-7) EOS x10^3 (test code = 0.03 10*3/uL 0.06-0.53 L 711-2) BASO x10^3 (test code 0.03 10*3/uL 0.01-0.09 = 704-7) Lab Interpretation Abnormal (test code = 40812-4) [id number] 16:42:42 Test Item Value Reference Range Interpretation Comments Case Report (test code Surgical Pathology ? ? = [id number]) ?Case: [id number] ? Authorizing Provider: ?Negrito Simeon MD ? Collected: ? 03/12/2022 1050 ?Ordering Location: ? ? [facility] ? ? ?Received: ?03/12/2022 1656 ? [facility] ?Pathologist: ? Carolin Riuz MD ? Specimens: ? A) - APPENDIX ? B) - HERNIA SAC, RIGHT INGUINAL, RIGHT INGUINAL HERNIA SAC ? Final Diagnosis (test c3hohFMxLAXvm3mqBVXcqH code = [id number]) FuZzEwMzNcZnRuYmpcdWMx IHtccnRmMVxhbnNpXGRlZm lhtviyUEPnKKI6vbQfKQAy CDD1BPJ9NmDdVXKdOlw0QF SuJI5rhUaglMo9wYhpSVNa knV4eFJzBRlil8aiKSF6d3 ahqpyeKXUcTAxtVi6biEAh yJpqSmVmQXBlEYs8zU12KM ZwrU8zwEGpTXfngrJeMlV5 NBbrXYHnXaL3KPXeoTLxEZ M9tZctGNBtniysAhJ6AJld UJVefmemDVo7KYhwOBTwuO F0ZXIjgNVlQ3JhXNYnAJ0n iem4VTE9STruXOBoMyD2NR CqlYCiRVPmsMejJKixj692 YBW3IrFiFOJwraEojRtaiR 0aUoQxCQlkRZQpSM7xBRGI LZ9MLPntVWDNKFXBCIZOBY 9NWTpccGFyICAgICAtIEJF TklHTiBBUFBFTkRJWCBUSV EXEKFwI0sUPLMZXBZQESna G55YR1SUTMnCRpRFKhYMEK JRLAAGAZ3OZTDMGLibLCLK KV4VWCICOMQVWGEkiYUvHM DmncBJUiIfD8tfCrExuDMt SEVSTklBIFNBQywgRVhDSV EAM030ENAibfi+UI6gmvq+ DV3pCQLJQhfHCsIUORZMGO xMCCcEVHQHZL1GJSPXOHDI P2SJONUGA9AnIJpGC2AOIA jQDHppNiZHI0NNDZLxS49G A7JLQElWCjcoPSGjvhWhDO YoCSIcP48IZ0xOWNUXZFAF GKZHJTeBBc4TDRZDUURfjN RnUNUjM8FdABNmUODruhdx czIyIExpbmRzYXkgQmlnaG JxXNUNDvAqDG9vOH9oQJIp MFX8EgYyLGXFSBMnzluvhr BnRJIsap75XBM1SgMtd4V3 MNLyTfAjOEQzVY8owOshPU WsXQ0fXZLrD3eohF9tozh6 YoPdRPEqAyE5DKQyerL0Xe m5GETcNRfvt6zmz0XeO7Vv hOPreWw9c8wdOIHeEvC1gZ RfQJjgC2nfpiKaaJByAVCd RTr1sQpjZbHnMVXef2wbya BcZmNoYXJzZXQwIENhbGli tvy9kP57TNZvqP8tzMSbFU tnbjXzPoS6YEtaVVFcChG6 VXQxlNUpICUkO8akSWItGH blQMGcBCjynPLoRMB7fMkv d6Z6mOLvuZLqxEamNvMbYi TzLIOGv6PkVZk5zRjqL9It NWDuQoC6vDUzMELqZZoiBV WqCZGxclE1jV11UZridoY2 tKLjp9Qxz10qq672uB1jnM NlCBF6QTDpANRrkSCkBQBq QBK0FXChzQGvM7rkQRItIU 7mlntoWGiiDGxxFZXivIL0 JRYohGVsN6CkPONfKTpyTL Zgevf9QwRxCr2grQHmhIoz NMhxt8bql0ufkEBePbz9WW KgYhZwBvjfAUluw9Ehl2qk FPLtyf3yLWV4lOKldFfuw6 E3aXZwHUCwbLQbcpOnMLXz KjG3VInrYX0ndc26WUXvSG E1cg4rcMHluRffrrHjzCJu PXtmI9RcTPIpw403PKUuA6 TiSOCsu7A3ltQeUpWgZPKg pIC2pbL0FBPyVTk6qWCltq X2wcKfeAFuI6zczA7cLVAt GK8wpnabz6ckDDddOXpbAH HyfZG4aqO9XBDcxNZhD8Hu wQ4ySRRiZHojAALjwkw9Kf TrFk8xcHXgpPgrSJduVkgt YWdlXHBnbmNvbnRccGduZG VjXHBsYWluXHBsYWluXGYw PDXlBzBnqNfjpAuccV0hSs NyUjLvIKpyNC4tVYNkR5de hGSxZKXmMIDvB0loTzOlzN 9jaFxmMVxjZjJcZnMyMFxw YXIgSSBoYXZlIHBlcnNvbm VxlXxdhnW7kNG3GSWqHTwr EHLqYQYixAPghl8joGcyFS EmRK1bMLXztyOqEKnsaQmg UJueJTK8EKNtpOHtwZEbtK FkZSBieSByZXNpZGVudHMs FTXgsGlzr5Xkk0LlnEW5oW 3sj8gwj4BbUPObnBW8ZC21 yhI1rB7gBZHrPL9mFOXvGS 6vrCTepBXpGDJsc77dfStf cyByZXBvcnQuXHBsYWluXG YyXGZzMjhcbGFuZzEwMzNc aGljaFxmMlxkYmNoXGYyXG siE3dqKaPkQoLhMLlmFVA9 uBofewRnYIiwx5JeX3LcNf AwMFxhbnNpXGRlZmxhbmcx LBGmZLM8tmGrILCgHIklJL YuLTeeKw5osSUzfVduVaDg BYLws6bjelBVUZpoZqMlI5 49RHCbGOtmi5ysg0IkSEQd sLRgj7B3RFZZfhkstZp1dC dcP92ew5R0ItysT7tvZKNs JFNhP1KkQF3mQOQfZrt3WP T3DTR3PYLyRWMjZ9EwVY1q JURizHHiVTd5i4ftlNmcZO IdTVR3v2obVMhzfgD0LC4q zx2hzFi8b0bdybYdXKNuLM ChaRZRJEDhI4KsxOuiTe1u cFl0dEtsJchjABV9Yjs6UX 2rfh81auz7tUysEUKqrnso KaK9FPfeNBSxhylqDDl5IW ucTWAelQO2COWniZPeH8No IMVrJF8vuna1UQV0LHvcEW QqMyE4SGEcgICpTLPxcHfn OPqgi738WUF6NjQsYM8qN0 Epr6F0sC0xxBDwURQpbHGo NfLcAKRpsh2qlYQyIXsxb2 ShZ47slQW3TEkzr1beSP4h MqH6otGgTYmxv0igxM0dNl Z1FRwgTJ9ghq37YCGbCGN5 hj6atOJjyMlvmtOsfTZaBX loC5DzCHTqh326KVQzX7Wa UWTwb7E8kvWxYaVnBPHfqJ Y1stS6ZBUnZHq1uSZmtkX2 miQalJJvD7ghyJ2mUOFqZS 7xnuczj4fkVNjvKQppQSIf cSK7oxS4MRIraDHzB7MiwR 2hNJJlOMwcVZMsqgg5XhIq Pk1qfPHcvVocLSzeTsllOU dlXHBnbmNvbnRccGduZGVj XHBsYWluXHBsYWluXGYwXG IlZfDmwCGkTMpfw5CluuIb dPpdVKTwBVt8uyCohunevP x2qBRzmZmdQRAsgEfjuD3d FaHnHdMqTXxtIG2uXQVaZ9 qemJXgQZTyBCFbC9epEpYt bQ4odTdsEOijIiJuNpFgAT xsdHJjaFxwYXIgSSBoYXZl GXGuruWonlEllFhfspN9pN W8JABnCPhhILMtMEOnnIJo au9vrVufRVJfUG0mRIYtzr ZkNHiaiIwuPDrlHVE7HXXk bWVudHMgbWFkZSBieSByZX BmINXafQVuNFNhxHfbn8Kj b3HvsFK4pN7vv7ply8QpQX VfrYL8VB68vgA3xX1xOIQh ED4fBIUmNH3imOEbvMRdSW Isn13nlHhxdaTcFLHzouWi XHBsYWluXGYxXGZzMjBcbG FuZzEwMzNcaGljaFxmMVxk AvHiLHVrSIwyA1lmWnDhA0 YyXGZzMjBccGFyXHBhclxw BNPhm0QpJcRvg6liGUudg6 pcaLz1CBmcnPKjfqhwOWmi ylI5ZENdPKilYHKkGCYlDE RcbGFuZzEwMzNcaGljaFxm KUstJtGjMTLdYWvuU6rbEw TiQ1TdXEJtGAOvqXHyM4un UIK6cC2lw4nto9XcqGKkPa Ifr7vwshJzSMIojEPtfuRz dITxLBVhb7VqFKAuTUAwAB XRSt1IDVUtmBHfT2n7kQVQ SN1awQNlWGOiCAUzS3CkEy RZxyYbh5C3EWHubWMoBXTL BXFlqOMyE3c9nMayJQhrZl f2EvAepGxamZ6zOdBuIaJv FMvzZU2rCTPfR7pakUXeUI SwTHLbH0pjVrFmoD8cbXmj MVxjZjJcZnMyMFxsdHJjaF pwIYT2qK== Clinical Information RIGHT INGUINAL HERNIA (test code = 7306219572) Gross Description (test z7nkkFVwXZMfmTDBBJCeL1 code = 7802200313) hdctCbNFKpaDRnU3Uubjxu HSjdFH7uDB7huMloeJXynV XtOV3JLWUnDxYyFMRrnEQw gkEbVzJyXKFucAAcoGK0AG WkBJ3lzvvbYFqxMTvyFPMi wjX0QASieNUaX8QlGDKdLB 4ishfbCSP0LLurpH1bkmKQ AkozCv8ggDMtxSxbRwHfBf NoYXJzZXQwXGZuaWwgQXJp XRy1kD3IHmpdMGH0RBCYJr kvDFUeXD2Tz7trQPRzsNNr QWM9NPgjgZEbFOUkZNZjHU y1VIKdRTtbhEMpQY3mdAwf KjtcaWibg4FjcEDvQOrcPD WrDJByZPatIRImYQ8GEuFk KKB5ETwiIIraGSh2QWh2PD 9WUyAiICAxODgyOTUyMSIg VZk6NMowIU4QGCV9YnA2MY P2TdyzWIOsUjnnYLp9MPZw XFxmIEFyaWFsIFxcZnMgMT LsGXpnsVDaYB9sxPsmiREj blxmczIwIFNQRUNJTUVOIE RdcCPmPZ7OYNKfEBysDFXm pXSFCGU8SN8oFTTBNmnheP PiAVBaoDjwJTobgI5lXB0I KKe2emCsLFBtGjRuD5YkS3 nuSB2vHCXmwqJgLXFxcZJh AHMpnkVmj2HnQNixtgZdMZ JlbGVkIHdpdGggdGhlIHBh lXgvwaFfroZfHT9jESAWOK SvzV6oBTOsCpZtpVUdVHz5 VpxhOB7rITHgbvFyz2GvNZ 9mIGFuIGludGFjdCwgdmVy eWqsf9WvKZWxoUVyNAl3UA f5CbQzN96mtB1rlGFsI9Bo NFvxNI47AVKhMPSodDTilx FxeKHmCYMrfmjsd9r7qLGe lWOzK9kgUEGvZPGvYMIqRA 9awFbyCL4bUVNdL5K4zUAu kWsgHOCtRUPgO8Hiu74igW NbU6ruXqFJzZOoc7Usr7Hi UWnyFEOhsp1wiM6eOOCnBE KdgbAat11skcUseUk3PIXf k377fYJ2mIGgVNLazqcat3 QoRQQ5LKPkAHsrRfSIiCSm z0UuV3cmZQ0toFYmr7PhpT TecXujs6NwcPfhkzYpKOAp NDRfywPnvGM1BF8vnSvwjc CrwBEgb2PaCpNwCZOhZG3b XKWpiKCvFB7lvjVgY6sqLf Mxol9oCEIjmwSolH02OIRw NSBjbSBpbiBkaWFtZXRlci S3oXS0YIEpytIyfH4tIRVx O84rbJ38bdSbpI66hpTqz8 Hrg05ayPF3GV8eSaXas77t PmCrLJmlrKR2MDJeDRanIT 8oFVIbfaLrotF6yQ9tmzHv mtKgR7Ssh9FfnYRkXRJglE oabYYzLnINWHP9pO6ekxA0 byBpbmNsdWRlIHRoZSBlbi RnDZZlKFErp2IgrPsduiVt MEJgxU0tWVlst0CgAISulD UpLCByZXByZXNlbnRhdGl2 BMFxvq8efr5zGWJ1bM6xZL OdowLcMgtoWSY1PJOkcMzt SZFzSPIjcFHxdXG4PTBkvO 0mYVUqPCiugBcgvL9uSGQc J77nb9KUh5JjSOXfFNvun0 tdqPwxx4QsiQZqWPbySUMg iCBwEKdhoT8rDfOpy7bjaF u0BBwcygB9VQXnoc3BJnpc CisbbGwjb1SybCWuHJiqLX SaWVVfQDooMQGtAF2ECsFj SUJ8WEkfGGsnGOq0WPf4SK 6LNlUcOHPgAEzxVAq8BAGh OXw6YSdmNP7WGCE8VbE7YN X0UBDgJJLrFwvxZYo0GRVx XFxmIEFyaWFsIFxcZnMgMT BgKXcfaEQyKY6onPvlttCq IFNQRUNJTUVOIEJccGFyIA 3UUVFoRCduGVLnbSVLFKS2 TT8oAGQIGvmqyBOzGIEeaB wpOAbnoW2aDR1EXZo3xaYg SQEsJwLaC6OuL7jcMW4mRk BpcyByZWNlaXZlZCBpbiBm y7RiEUbgjaGnVUFdmMMqNA dpdGggdGhlIHBhdGllbnQn ioHdAL3dCZQUGNIliC6yGM PpLkMofNesnWZjvva9iV8m rVQyJLYrwGPqu7JeUfoyZB 8tXMYwbaNxk2CdBL6xZSPt eGAlTXYvehbhn8IpI2OxRL Gbh63tsIX7lLOjsZVbXbDn Q45cxeJcPNFlFXC5SCCsKW C3GGMyLwKsaBzul8nuI2si sHMtz1HhjMJupCuyu0IcoN lvbmVkIHRvIHJldmVhbCB0 NM8pmPonrwKnBW0urvWoy5 UfLZM4kPCpzGQoWSQhaa8g YHBavJPox9KfcGW2rOLaYJ MzB9Xhs70wXEXfTGCkuECa iKW9AUJlcC0pXfOsJYHyhi NUFvrjGDZgWJsTXFU3WXXg amVzdGthLCBQQSAoQVNDUC kNClxwbGFpblxlcGljTmVz pDPxQoJzfExenF02DRCyjL XbLBK5BZ2qMJJczlorOGYr YSMbQYC9ATaxlO95tUTfBN AfNGFkaXWcjJ3JXJTyWOA3 UBxrrN32nKAwNM1MEWNdLS F6ZTEzsQSmYVV8YK5ldZ7D fQ== Disclaimer (test code = p1zsoOFjBVRgp9mbWDKriF [id number]) FuZzEwMzNcZnRuYmpcdWMx VNgzkcZjSRpfs1LxC4KxMc AwMFxhbnNpXGRlZmxhbmcx NDUuPGP9arIsNGJrNEcpGQ ViCDrcTv2nmZVyoNswPmUr ILXtu4zyhvXCRUdlVaBnE9 44OOHeZMrnv8fnh1YxHMMz zVXlc6J8SJGYmcouzNz0wT iqW27rb1F2WqqhI2cdMKLo VVZbI4UoCT0fAKFoQcq5HN P9BOO0HBKjBXLnP3FjER0l LPSwjSXuOAe8k7qyeBdeFT EdBYA9f5ujMMkbceLwCA5n hx6xhXm2u6dultUxGAJbZT ZeqOCFLYVlO5FmdGjsEm9d cWx2oEfmOisxKCX6Ptm1HF 9ruv60hqa1kXveCHAtzwia GbC4IUehLENrtuljPFh3BU hlEABlpHW2BVJavDVpH9Hd NRLtHQ5vtsf1CNE4WYjcEG JxLfU8LMYslRZyUEVutBwr XDscq333ZUU9EcYoTT1hB6 Zqg7G4sL2uzTPsLMVexQWk QfMoTWWvij9wwWOwKZcih9 SwOTX1puG7kVKupUXzZVJj AQ13Vlzdd5RbWptix4VsZ2 7boOW1LWhuv8waEA2sBjY4 voEmSDesq6vrnP6mXoT8VI gtSN4vNF9hGOOmaR9hghkc XHBnYnJkcmhlYWRccGdicm FnIi1ngDhqTIO5VZemG6bf wD3iYfF6XYqfY1rhwI4oCV a7DMxwdOH0FDOyxA4kHR7l lnqlh4eiTFenVZqqYQVkqp J6mvW3VLLeaCNwX6UrsC6e UMBaQO7tgrbls4ttKOU4SX znNUErRCP7ZzWwZKGfr0Wx qfl3QtGiw3ZdwMGnDQalU2 7ag895KZEyqkMvK7yjrPDd dljeiQFexhoyLUeejtM2TQ JsicUry7KgYKAwGGG8TJoz AEdhjQLnRKTtzPynx5hxM5 RscGFyXHBsYWluXGYxXGZz MjBcbGFuZzEwMzNcaGljaF sjHJgqCzXxQVDqAFjoP8en UkHlS2OeYRFzSgTvyUXjL0 ggVGhpcyByZXBvcnQgbWF5 LUxjJ9h3XXMjacYgcBh8ib UfPtZiFSBwOWP8ICpycWUo JXGed9LpjhlnbAHpEs5niV HfZFDguT1oTCArUPBwZUfj JU4dpMm2CELIbKCbmCBhJo USINFtNK00kyZhCPPQwlxn s1B1VUdtHFPlm2FiyFDtX3 cce8LpUULdr10fJF2wr8E1 c5xcZNX8KO7bw0AbOVJteA DnfGNhXXApx0Maqzkdi1Fh BCJbdoDyu8FcZEHnluHbcY SvKUNowpNnlw8ivoAuETCg CUDvB2LrrbdafZvtnnTfJM Dsma9pdqSmATN4WSIFHQPu JZBle9CstT9sgQYGMRH4gZ Rwoy6pcyXFsYLlJUPmap01 NCYyIQ3aP3mdGPMqJIChzl WmjPStt7LyJPZdyEK4jXFr PR1HMmNNd25aHABrWGOZsq JrADOkrXycfYP0arQ8dQ3d IChGREEpLlx+IFRoZSBGRE SgXA3okdUjm3KdkoQpdUlp TIUmbZOjz3IskOMbi8HpsH vke7WriLAblNYjNX9eJSBt clxwYXIgVVRNQiBMYWJvcm X2x5WpKTGhCECsEXE3yQyp zgv4NTJvxP2rTYBpP1udli acPUbwOPQil7NyiG5rmFBB bXPyc9OdxFWarKLZsBOfJV 5eelOuCXeREPcZQFE9foRf SSNtn4EaYHukZ8xoJ90vfX kqsOz5oDG1EGY3aD9vHyy+ IFxwYXJccGFyIEFwcHJvcH MmERUowBkvbuDmM2RmazVn uZ9dnAVthhWqNE9wVC5jR5 L3sQIcAXJxxvFtu4zrVBxt dmUgYmVlbiByZXZpZXdlZC Nfo2RrMJytHJK1FHipahKi bmNsdWRpbmcgSCZFLCBTcG CceAJnQWV3SXebmiPtkpTf TF6woN3fgAlvrP1woSRjlF N7hpmpUDDlQWCguHslAOTh AB5vvGAoDCDpkkJVxPzahP JawU2wZ5QsAJRpJELtnf3k RQWzqW0kYAtob2UgsyvfMC QeCOCyPXIzgaHbnp7yFSZz lBAHYS1XMRbpyIBuz3Gsmi BjM6eYFOV4PFNxVeZvGyoi AJBmsXHbtITbUISntb41KO ZrtJ2iwVzaIWAeeE0fxD3g hCxccT6jLgOaWxKdGFkcTM 4xYJKpF2kwuQIkZYWxEPQw G3rtQwTiuX4yxVvjJYiyOo AcHmKlQZwhAOO3kP== Embedded Images (test code = 5286098467) [facility] This is a pre-surgical type and screen. ONCE [id number] 17:52:02 Test Item Value Reference Range Interpretation Comments ABO & RH (test AB POSITIVE Performed at [facility] code = 20) [facility] [address] [facility] s [address]Owkv Free: [phone] A No. [id number] IAT (test code = Negative Performed a t [facility] 1185) [facility] [address] [facility] [address]Tocw Free: [phone] A No. [id number] [facility] 23:13:17 Test Item Value Reference Range Interpretation Comments PALB (test code = 20172-8) 20.2 mg/dL 18.0-45.0 Lab Interpretation (test code = Normal 45601-6) [facility] (37815[facility] (ALB,T.PRO,BILI T,BU/BC,ALT,AST,ALK PHOS)2022-02-04 23:05:58 Test Item Value Reference Range Interpretation Comments TOTAL BILI (test code = 7807575606) 0.4 mg/dL 0.1-1.1 BILI UNCON (test code = 2501403407) 0.2 mg/dL 0.1-1.1 BILI CONJ (test code = 0448005969) 0.0 mg/dL 0.0-0.3 T PROTEIN (test code = 1645449166) 7.7 g/dL 6.3-8.2 ALBUMIN (test code = 6357391376) 3.4 g/dL 3.5-5.0 L ALK PHOS (test code = 9755730255) 65 U/L 34-122 ALTv (test code = 1742-6) 11 U/L 5-50 AST(SGOT) (test code = 5570628526) 23 U/L 13-40 Lab Interpretation (test code = Abnormal 09347-3) [facility] [id number] 03:38:00 Test Item Value Reference Range Interpretation Comments AB HEPATITIS A IGM NEGATIVE (test code = HAVMAB) AG HEPATITIS B NEGATIVE SCREEN NEGATIVE SURFACE (test code = HBSAG) AB HEPATITIS B CORE NEGATIVE IGM (test code = HBCMAB) AB HEPATITIS C (test <0.1 RATIO <0.8 S/C RAT ION 0.0 - code = HCVAB) 0.9 NEGATIVE <0.8INDETERMINA TE 0.8 - 0.9POSITI VE >0.9 [id number] 16:06:00 Test Item Value Reference Range Interpretation Comments SURG (test code = SURG) RUN DATE: 10/07/20 [facility] PAGE 1 RUN TIME: 1607 Specimen Inquiry RUN USER: INTERFACE PATIENT: MYRNA SANCHES JRTIN LOC: WINTER U #: [id number] AGE/SX: 35/M ROOM: WINTER RE10/06/20REG DR: Sreekanth Garcia MD : 84 BED: 3 DIS: STATUS: ADM Arcadio TLOC: SPEC #: [id number] RECD: 10/06/20 STATUS: ELZA CHURCHILL #: [id number] MRIIAM: 10/06/20 [facility] DR: Sreekanth Garcia MD ENTERED: 10/06/20 SP TYPE: SURG OTHR DR: DOES_NOT KNOW No Primary or Family Physician Juan Mcbride MD, Jignesh P MDORDERED: SURG PATH LVL 4 COPIES TO: DOES_NOT KNOW No Primary [place] [address] [place] [address] [email or web address] [address] [place], [place] [address] Arnulfo Cormier MD [address] [place] [address] HISTOLOGY: TISSUE ID BLK PCS KANWAL LEV PROCEDURE DISPOSITION ____ ___ ___ ___ ESOPHAGUS, NOS A 1 2 PROCEDURES: SURG PATH LVL 4 (10/06/20) TISSUES: A. ESOPHAGUS, NOS - ESOPHAGUS BIOPSY CLINICAL HISTORY ESOPHAGEAL FOOD BOLUS, STRICTURE V DYSMOTILITY CONTINUED ON NEXT PAGE RUN DATE: 10/07/20 [facility] PAGE 2 RUN TIME: 1607 Specimen Inquiry RUN USER: INTERFACE SPEC #: [facility]:[id number] PATIENT: FIONA SANCHES JR #[id number] (Continued) CPT CODES CPT CODE(S): 43088 , , , , , , FINAL DIAGNOSIS Esophagus, biopsy: ACUTE ESOPHAGITIS WITH CANDIDIASIS NEGATIVE FOR INTESTINAL METAPLASIA, DYSPLASIA, OR MALIGNANCY GROSS DESCRIPTION Esophagus biopsy. Received in formalin are multiple minute fragments of suarez soft tissue, 0.1 - 0.3 cm. The specimen is filtered in a teabag and entirely submitted as A. ba/nr Grossing performed at [facility] Pathology, [address] [place] [address], [address], [place] [address]. Traffic Maintenance Supervisor: Abner Steward M.D. MICROSCOPIC DESCRIPTION Esophagus [...] indicativ e of the presence code = JAQYQ97TT) ofSARS-CoV -2 RNA, clinical correlation wit h [...] indicativ e of the presence code = ZBGID75OZ) ofSARS-CoV -2 RNA, clinical correlation wit h [...] for the identification of SARS-CoV-2 RNA usingthe payever M2000 Sy stem under the FDA Emergen cy UseAuthorizatio n. The testing is perf ormed by personneltraine d in the procedures for the payever M2000 molecular diagnostic SARS-CoV-2 assa y in vitro. CBC W/AUTO [id number] 13:10:00 Test Item Value Reference Range Interpretation [...] NT WITH AUTO DIFFERENTI AL. CBC W/AUTO [id number] 13:10:00 Test Item Value Reference Range Interpretation [...] CONSISTA NT WITH AUTO DIFFERENTI AL. RBC [id number] 13:10:00 Test Item Value Reference Range Interpretation Comments PLATELET ESTIMATE DECREASED THOUSAND ADEQUATE PLAT ELET COUNT (test code = REVIEWED AND PLTEST) VERIFIED. PLATELET MORPHOLOGY NORMAL (test code = PLTMORPH) CBC W/AUTO [id number] 13:10:00 Test Item Value Reference Range Interpretation [...] NT WITH AUTO DIFFERENTI AL. COMPREHENSIVE METABOLIC [id number] 11:48:00 Test Item Value Reference Range Interpretation [...] TOTAL (test code = ALKP) CBC W/AUTO [id number] 11:33:00 Test Item Value Reference Range Interpretation [...] REQUIRED (test code = DIFF/SCN CRITERIA MDIFF) [id number] 04:59:00 Test Item Value Reference Range Interpretation Comments AMMONIA (test code = AMM) 56 mcMOL/L 11-32 H LACTIC [id number] 04:59:00 Test Item Value Reference Range Interpretation Comments LACTIC ACID (test code = LACT) 0.7 mmol/L 0.4-2.0 N GLUCOSE BEDSIDE [id number] 20:35:00 Test Item Value Reference Range Interpretation Comments GLUCOSE BEDSIDE TESTING (test code 109 mg/dL 70-110 N = GLUBED) GLUCOSE BEDSIDE [id number] 17:10:00 Test Item Value Reference Range Interpretation Comments GLUCOSE BEDSIDE TESTING (test code 105 mg/dL 70-110 N = GLUBED) - US ABDOMEN [id number] 16:39:00 [facility] 1985 Sex: M Name:FIONA SANCHES JR [facility] : 1985 Age/S: 35 / M [address] [address] Unit #: [id number]: [place] [address] Phys: Matilda Kirk PA-C Acct: [id number] Dis Date: Status: ADM IN PHONE #: [phone] Exam Date: 10/06/2020 9605 FAX #: Reason: elevated lfts, evaluate for cirrhosis EXAMS: CPT: [id number] US ABDOMEN LTD 86773 RIGHT UPPER QUADRANT ULTRASOUND. CLINICAL HISTORY: Elevated liver fu nction tests, evaluate for cirrhosis COMPARISON: CT chest dated October 06, [...] 1.6 mm in thickness. The common bile ductmeasures 5.3 mm diameter. There is no pericholecystic fluid. Sonographic Calle's test is negative.The main portal vein demonstrates normal hepatopetal flow. The right kidney measures 9.3 x 4 x 4.8 cm. Mild right renal pelviectasis noted. Evaluation of the pancreas is limited due to overlying bowel gas. IMPRESSION: 1. Trace ascites is noted in the upper abdomen. 2. Mild right renal pelviectasis. 3.Mild distention of the gallbladder. No gallstones are identified. Location Code: R16 at 1639 Reported and signed by: Eh Barajas M.D. PAGE 1 Signed Report (CONTINUED) Name: FIONA SANCHES JR : 1985 Age/S: 35 / M [address] [address] Unit #: [id number] Loc: [place] [address] Phys: Matilda Kirk PA-C Acct: [id number] Dis Date: Status: ADM IN PHONE #: [phone] Exam Date: 10/06/2020 1515 FAX #: Reason: elevated lfts, evaluate for cirrhosis EXAMS: CPT: [id number] US ABDOMEN LTD 47606 <Continued> CC: Sreekanth Garcia MD; Matilda Kirk Technologist: Rae Owentntip Date/Time: 10/06/2020 (1639) [id number] PAGE 2 Signed Report Name: FIONA SANCHES JR [place] : 1985 Age/S: 35 / M [address] [address] Unit #: [id number] Loc: [place] [address] Phys: Matilda Krik PA-C Acct: [id number] DisDate: Status: ADM IN PHONE #: [phone] Exam Date: 10/06/2020 1515 FAX #: Reason: elevated lfts,evaluate for cirrhosis EXAMS: CPT: [id number] US ABDOMEN LTD [address]21 <Continued> Orig Print D/T: S: 10/06/2020 (9363) Probe: PAGE 3 Signed ReportUA RFLX MICR CULT IF [id number] 15:23:00 Test Item Value Reference Range Interpretation [...] RiskForSepsis-no oth srcUA RFLX MICR CULT IF INDICATED 2020-10-06 15:09:00 Test Item Value Reference Range Interpretation [...] 92 mg/dL 70-110 N GLUBED) GLUCOSE BEDSIDE [id number] 13:37:00 Test Item Value Reference Range Interpretation Comments GLUCOSE BEDSIDE TESTING (test code = 58 mg/dL 70-110 L GLUBED) CREATINE KINASE (CK)2020-10-06 11:26:00 Test Item Value Reference Range Interpretation Comments CREATINE KINASE (CK) (test code = 287 Unit/L 26-192 H CK) [id number] 11:26:00 Test Item Value Reference Range Interpretation Comments AMYLASE (test code = JOSE CARLOS) 120 Unit/L 25-115 H [id number] 11:26:00 Test Item Value Reference Range Interpretation Comments LIPASE (test code = LIP) 112 Unit/L 114-286 L CBC W/AUTO [id number] 09:58:00 Test Item Value Reference Range Interpretation [...] DIFF/SCN CRITERIA (test code = MDIFF) WBC [id number] 09:58:00 Test Item Value Reference Range Interpretation [...] NORMAL (test code = PLTMORPH) CBC W/AUTO [id number] 09:55:00 Test Item Value Reference Range Interpretation [...] DIFF/SCN CRITERIA (test code = MDIFF) WBC [id number] 09:55:00 Test Item Value Reference Range Interpretation Comments SEGMENTED NEUTROPHILS (test code = SEG) % 40-75 LYMPHOCYTE (test code = LYMPH) % 12.6-43.5 CBC W/AUTO [id number] 09:55:00 Test Item Value Reference Range Interpretation [...] DIFF/SCN CRITERIA (test code = MDIFF) WBC [id number] 09:55:00 Test Item Value Reference Range Interpretation Comments SEGMENTED NEUTROPHILS (test code = SEG) % 40-75 LYMPHOCYTE (test code = LYMPH) % 12.6-43.5 COMPREHENSIVE METABOLIC [id number] 09:14:00 Test Item Value Reference Range Interpretation [...] TOTAL (test code = ALKP) CBC W/AUTO [id number] 09:02:00 Test Item Value Reference Range Interpretation [...] CRITERIA (test code = MDIFF) GLUCOSE BEDSIDE [id number] 06:41:00 Test Item Value Reference Range Interpretation Comments GLUCOSE BEDSIDE TESTING (test code = 65 mg/dL 70-110 L GLUBED) COVID 19 INHOUSE [id number] 05:40:00 Test Item Value Reference Range Interpretation Comments COVID 19 INHOUSE AG NEGATIVE Negative Per manu facturer, (test code = negative result s should [id number]) be treated aspr esumptive and, if inconsi stent with clinical signs andsymptoms or necessary for patient man agement, should betested with an alternative mol ecular assay. Negative resultsdo not preclude SA RS-CoV-2 infection and s hould not be usedas the s ole basis for patient man agement decisions. Nega tive results should be considered in t he context of apatient's r ecent exposures, hist ory, presence of cli nicalsigns and symptoms co nsistent with COVID-19. - CT CHEST [id number] 03:30:00 [facility] : 1985 Sex: M Name: FIONA SANCHES JR [facility] : 1985 Age/S: 35 / M [address] [address] Unit #: [id number]: [place] [address] Phys: Scott Person MD Acct: [id number] Dis Date: Status: REG ER PHONE #:[phone] Exam Date: 10/06/2020 0244 FAX #: Reason: possible esophageal pneumatosis EXAMS: CPT: [id number] CT CHEST W/CONTRAST 50931 DICTATION LOCATION: H48 HISTORY: Male, 35 years [...] mA and/or kV according to the patient size; and/or use of iterative reconstruction technique. STATEMENT: Exam quality is acceptable. FINDINGS: AORTA: No aneurysm or dissection. PULMONARY ARTERIES:Within normal limits caliber. HEART: Heart size within [...] of tiny bubbles is seen surrounding the food bolus within the esophageal lumen. I do not identify esophageal intramural pneumatosis or pneumomediastinum. No discrete esophageal mass lesion. There is tapered esophageal narrowing at the gastroesophageal junction. PLEURA: No pleural effusions. LUNGS:Patchy multifocal multilobar ground glass interstitial opacities are scattered throughout both lungswith lower lobe predominance. No matthieu lobar consolidation [...] distal esophageal obstruction from stricture, achalasia, or connectivetissue disorder PAGE 1 Signed Report (CONTINUED) Name: FIONA SANCHES JR [place] : 1985 Age/S: 35 / M [address] [address] Unit #: [id number] Loc: [place] [address] Phys: Scott Person MD Acct: [id number] Dis Date: Status: REG ER PHONE #: [phone] Exam Date: 10/06/2020 0245 FAX #: Reason: possible esophageal pneumatosis EXAMS: CPT: [id number] CT CHEST W/CONTRAST 74988 <Continued> (i.e. scleroderma or dermatomyositis). Infiltrative neoplasm [...] (0333) PAGE 2 Signed Report- CT NECK [id number] 03:11:00 [facility] : 1985 Sex: M Name:FIONA SANCHES JR [place] : 1985 Age/S: 35 / M [address] [address] Unit #: [id number] Loc: [place] [address] Phys: Scott Person MD Acct: [id number] Dis Date: Status: REG ER PHONE #:[phone] Exam Date: 10/06/2020 0250 FAX #: Reason: possible esophageal pneumatosis EXAMS: CPT: [id number] CT NECK W/CONTRAST 12156 EXAM: - CT NECK W/CONTRAST LOCATION: H57 INDICATION: 35 years -oldMale with possible esophageal pneumatosis COMPARISON: None available at time of interpretation. TECHNIQUE: Contrast enhanced CT of the neck with sagittal and coronal reformats. This exam was performed according to our departmental dose-optimization program, which includes automated exposure control, adjustment of the mA and/or kV according to patient size and/or use of iterative reconstruction technique. FINDINGS: Paucity of fat limits evaluation. The pharynx, transglottic airway, visualized trachea, visualized esophagus are unremarkable. The visualized orbits and intracranial compartment are normal. The paranasal sinuses are clear. Salivary and thyroid glands are normal in appearance. No cervicallymphadenopathy. The bones and soft tissues are unremarkable. Please refer to dedicated concurrent CT chest for additional thoracic findings. IMPRESSION: Unremarkable CT neck. Electronically Signedby Fawn Otero on 10/06/2020 at 0311 Reported and signed by: Gianni Otero M.D. PAGE 1 Signed Report (CONTINUED) Name: FIONA SANCHES JR [place] : 1985Age/S: 35 / M [address] [place] [address] Unit #: [id number] Loc: [place] [address] Phys: Scott Person MD Acct: [id number] Dis Date: Status: REG ER PHONE #: [phone] Exam Date: 10/06/2020 0250 FAX #: Reason: possible esophageal pneumatosis EXAMS: CPT: [id number] CT NECK W/CONTRAST 68178 <Continued> CC: Technologist:Valentine Momin, RT(R)(CT); CTDI: DLP: Trnscb Date/Time: 10/06/2020 (031) [id number] Orig Print D/T: S: 10/06/2020 (0310) PAGE 2 Signed ReportBASIC METABOLIC [id number] 02:14:00 Test Item Value Reference Range Interpretation [...]
[2022-05-29] MEDS ORDERED: NA CHLORIDE 0.9% 1,000 ML ONE (09:37)
--- NOTE | 2022-05-29 09:42 | RAD REPORT ---
EXAM DESCRIPTION: CT - Head Brain Wo Cont - 05/29/2022 9:36 am CLINICAL HISTORY: sdf Headache, drowsiness COMPARISON: Head Brain Wo Cont dated 09/18/2021; Head Brain Wo Cont dated 07/30/2021; Head C Spine Mp r Wo Con dated 05/04/2022 TECHNIQUE: All CT scans are performed using dose optimization technique as appropriate and may inclu de automated exposure control or mA/KV adjustment according to patient size. FINDINGS: No intracranial hemorrhage, hydrocephalus or extra-axial fluid collection.No areas of brai n edema or evidence of midline shift. The paranasal sinuses and mastoids are clear. The calvarium is intact. IMPRESSION: No acute intracranial abnormality.
[2022-05-29] MEDS ORDERED: MORPHINE 4 MG/ML SYR ONE (10:30)
[2022-05-29] MEDS ORDERED: ONDANSETRON 4 MG/2 ML VIAL ONE (10:30)
[2022-05-29 10:35] LABS: Absolute Lymphocytes (CBC) 1.2 K/uL (0.7-4.9); Hematocrit 31.6 % (39.6-49.0); Lymphocytes % 18.5 % (15.3-44.8); MCV 89.3 fL (80-100); MPV 8.9 fL (7.6-11.3); RBC Red Blood Cell Count 3.54 M/uL (4.33-5.43)
[2022-05-29 10:49] LABS: Troponin High Sensitivity 3.6 pg/mL (<58.9)
[2022-05-29 10:57] LABS: Potassium 2.4 mmol/L (3.5-5.1)
--- NOTE | 2022-05-29 10:59 | RAD REPORT ---
EXAM DESCRIPTION: RAD - Chest Single View - 05/29/2022 9:51 am CLINICAL HISTORY: df Chest pain. COMPARISON: Chest Single View dated 05/04/2022; Chest Single View dated 04/21/2022; Chest Single View dated 12/29/2021; Chest Single View dated 12/20/2021; Head C Spine Mpr Wo Con dated 05/04/2022 FINDINGS: Portable technique limits examination quality. Nodular opacity is present in the left mid lung which appears more prominent than on prior study. Oth erwise, the lungs are clear. The heart is normal in size. Dilated esophagus noted.Bilateral humeri os teochondromas. Nonemergent CT chest followup would be recommended.
[2022-05-29] MEDS ORDERED: KCL 20 MEQ/100 mL IVPB 100 ML IV ONE (12:03)
[2022-05-29] MEDS ORDERED: POTASSIUM 25 MEQ EFFERV TAB ONE (12:38)
[2022-05-29] MEDS ORDERED: NA CHLORIDE 0.9% 250 ML ONE (12:58)
--- NOTE | 2022-05-29 15:26 | ER ---
Nurse's Notes [facility] Name: Tahir Ag Jr Age: 37 yrs Sex: Male : 1985 Arrival Date: 05/29/2022 Time: 08:51 Bed 14 Private MD: Diagnosis: Hypokalemia Presentation: 05/29 08:52 Chief complaint: EMS states: pt stated he was having fainting episodes X 4, did not his iw his head, fainted on couch. Coronavirus screen: At this time, the client does not indicate any symptoms associated with coronavirus-19. Ebola Screen: Patient negative for fever greater than or equal to 101.5 degrees Fahrenheit, and additional compatible Ebola Virus Disease symptoms Patient denies exposure to infectious person. Patient denies travel to an Ebola-affected area in the 21 days before illness onset. No symptoms or risks identified at this time. Initial Sepsis Screen: Does the patient meet any 2 criteria? No. Patient's initial sepsis screen is negative. Does the patient have a suspected source of infection? No. Patient's initial sepsis screen is negative. Risk Assessment: Do you want to hurt yourself or someone else? Patient reports no desire to harm self or others. Onset of symptoms was May 29, 2022. 08:52 Method Of Arrival: EMS: [facility] iw 08:52 Acuity: MARTINA 3 iw 09:09 Chief complaint: Patient states: pt states he has a bunch of food stuck in his chest iw right now, he ate chicken yesterday , states he has been vomiting. Historical: - Allergies: 09:10 No Known Allergies; iw - Home Meds: 14:27 Depakote 125 mg Oral TbEC 1 tab 2 times per day [Active]; Hydroxyzine Oral [Active]; jg9 risperidone 1 mg/mL Oral soln 1 mL once daily [Active]; Trazodone Oral [Active]; - PMHx: 09:10 achalasia; Bipolar disorder; Diabetes - NIDDM; Hernia; Hypertension; Schizophrenia; iw Seizure; - PSHx: 09:10 gastrostomy tube; iw - Immunization history:: Adult Immunizations unknown. - Social history:: Smoking status: Patient denies any tobacco usage or history of. Screenin:13 Abuse screen: Denies threats or abuse. Nutritional screening: No deficits noted. ap3 Tuberculosis screening: No symptoms or risk factors identified. Fall Risk Fall in past 12 months (25 points). Secondary diagnosis (15 points) No IV (0 pts). Ambulatory Aid- None/Bed Rest/Nurse Assist (0 pts). Gait- Normal/Bed Rest/Wheelchair (0 pts) Mental Status- Oriented to own ability (0 pts). Total [place] Fall Scale indicates Low Risk Score (25-44 pts). Fall prevention measures have been instituted. Side Rails Up X 2 Placed close to Nursing Station Frequent Obs/Assesments occuring Family Present and informed to notify staff if they need to leave bedside As available Patient and Family Educated on Fall Prevention Program and strategies. Assessment: 09:11 General: Appears comfortable, Behavior is calm. Pain: Complains of pain in mid-sternal ap3 area Quality of pain is described as patient feels like there is food stuck in his throat. Neuro: Level of Consciousness is awake, alert, obeys commands, Oriented to person, place, time, situation, Gait is steady, Speech is normal. Neuro: Reports weakness. Cardiovascular: Patient's skin is warm and dry. Respiratory: Airway is patent Respiratory effort is even, unlabored. GI: Reports feeling like he has food stuck in his throat. 10:00 Reassessment: No changes from previously documented assessment. Patient and/or family jg9 updated on plan of care and expected duration. Pain level reassessed. Patient is alert, oriented x 3, equal unlabored respirations, skin warm/dry/pink. Patient c/o chest pain 07/03 requesting pain medication. 11:00 Reassessment: No changes from previously documented assessment. Patient and/or family jg9 updated on plan of care and expected duration. Pain level reassessed. Patient is alert, oriented x 3, equal unlabored respirations, skin warm/dry/pink. Patient has pain medication ordered but this nurse will give a bolus of NS due to low bp prior to administration of 4mg morphine. 12:00 Reassessment: Patient and/or family updated on plan of care and expected duration. Pain jg9 level reassessed. Patient is alert, oriented x 3, equal unlabored respirations, skin warm/dry/pink. Patient resting in bed, NAD, vitals stable Patient states feeling better. Patient states symptoms have improved. 13:00 Reassessment: No changes from previously documented assessment. Patient and/or family jg9 updated on plan of care and expected duration. Pain level reassessed. Patient is alert, oriented x 3, equal unlabored respirations, skin warm/dry/pink. 14:00 Reassessment: No changes from previously documented assessment. Patient and/or family jg9 updated on plan of care and expected duration. Pain level reassessed. Patient is alert, oriented x 3, equal unlabored respirations, skin warm/dry/pink. 15:00 Reassessment: Patient and/or family updated on plan of care and expected duration. Pain jg9 level reassessed. Patient is alert, oriented x 3, equal unlabored respirations, skin warm/dry/pink. patient asking for pain medication-provider already notified . 15:15 Reassessment: patient refusing redraw, this nurse went to find provider to let him jg9 know, upon returning patient was gone, IV out, gown on bed. Vital Signs: 09:09 BP 89 / 67; Pulse 103; Resp 16; Temp 97.2; Pulse Ox 100% on R/A; Weight 44.45 kg; iw Height 5 ft. 5 in. (165.10 cm); 10:00 BP 98 / 71; Pulse 74; Resp 17 S; Pulse Ox 100% on R/A; Pain 9/10; jg9 10:30 BP 94 / 72; Pulse 69; Resp 17 S; Pulse Ox 97% on R/A; Pain 9/10; jg9 11:00 BP 90 / 68; Pulse 69; Resp 20 S; Pulse Ox 100% on R/A; Pain 9/10; jg9 12:00 BP 93 / 75; Pulse 54; Resp 14 S; Pulse Ox 100% ; Pain 4/10; jg9 13:00 BP 101 / 76; Pulse 66; Resp 16 S; Pulse Ox 100% ; Pain 5/10; jg9 14:00 BP 96 / 72; Pulse 52; Resp 16 S; Pulse Ox 99% on R/A; Pain 5/10; jg9 15:00 BP 97 / 77; Pulse 66; Resp 16 S; Pulse Ox 98% on R/A; jg9 09:09 Body Mass Index 16.31 (44.45 kg, 165.10 cm) ED Course: 08:51 Patient arrived in ED. iw 08:53 Triage completed. iw 09:00 [facility]. jl9 09:00 Keshawn Fish MD is Attending Physician. jl9 09:11 Louise Michaud, MARTINA is Primary Nurse. ap3 09:13 Arm band placed on right wrist. ap3 09:14 Patient has correct armband on for positive identification. Placed in gown. Bed in low ap3 position. Call light in reach. Pulse ox on. NIBP on. Door closed. Noise minimized. 09:38 CT Head Brain wo Cont In Process Unspecified. EDMS 09:53 XRAY Chest (1 view) In Process Unspecified. EDMS 10:19 Missed attempt(s): 22 gauge in left forearm. antecubital area. upper arm. left EJ. jg9 10:46 Missed attempt(s): 22 gauge in right forearm. antecubital area. upper arm. jg9 10:46 Inserted saline lock: 24 gauge in left wrist, using aseptic technique. jg9 11:00 No apparent distress. Resting quietly. jg9 12:13 Appears to be sleeping. jg9 15:08 No apparent distress. Resting quietly. jg9 Administered Medications: 10:45 Drug: Zofran (Ondansetron) 4 mg Route: IVP; Site: left wrist; jg9 10:59 Follow up: Response: No adverse reaction jg9 10:46 Drug: NS 0.9% 1000 ml Route: IV; Rate: 1000 ml; Site: left wrist; jg9 13:17 Follow up: IV Status: Completed infusion; IV Intake: 1000ml jg9 11:45 Drug: morphine 4 mg Route: IVP; Infused Over: 4 mins; Site: left wrist; jg9 12:11 Follow up: Response: No adverse reaction; Pain is decreased jg9 12:00 Drug: Potassium Chloride 20 mEq Route: IV; Rate: bolus; Site: left wrist; jg9 14:11 Follow up: IV Status: Completed infusion; IV Intake: 100ml jg9 12:38 Not Given (Other Intervention Used): Potassium Chloride Liquid 40 mEq PO once jg9 12:39 Drug: Potassium Effervescent Tablet 50 mEq Route: PO; jg9 13:16 Follow up: Response: No adverse reaction jg9 Intake: 13:17 IV: 1000ml; Total: 1000ml. jg9 14:11 IV: 100ml; Total: 1100ml. jg9 Outcome: 15:24 Eloped Time discovered patient gone: May 29, 2022 at 15:20 jg9 15:25 Discharge ordered by MD. nielson 15:43 Patient left the ED. ap3 Signatures: Dispatcher [employer] Xiomara Noel RN RN iw Prokisch, Amanda, RN RN ap3 Gilmore, Jennifer, RN RN jg9 Linares, John jl9 Corrections: (The following items were deleted from the chart) 13:17 12:11 Response: No adverse reaction jg9 jg9 14:28 09:10 Home Meds: None; odilia jg9
--- NOTE | 2022-05-29 15:26 | EDPHYS ---
Physician Documentation [facility] Name: Tahir Ag Jr Age: 37 yrs Sex: Male : 1985 Arrival Date: 05/29/2022 Time: 08:51 Bed 14 Private MD: ED Physician Keshawn Fish HPI: 05/29 09:23 This 37 yrs old Black Male presents to ER via EMS with complaints of generalized jl9 weakness and near syncope. Patient seen her numerous time before with same complaints. . 09:23 The patient has experienced near-syncope, felt faint. Onset: The symptoms/episode jl9 began/occurred yesterday. Duration: The patient has had multiple episodes, that last an unknown period of time. Context: occurred at home. Historical: - Allergies: 09:10 No Known Allergies; iw - Home Meds: 14:27 Depakote 125 mg Oral TbEC 1 tab 2 times per day [Active]; Hydroxyzine Oral [Active]; jg9 risperidone 1 mg/mL Oral soln 1 mL once daily [Active]; Trazodone Oral [Active]; - PMHx: 09:10 achalasia; Bipolar disorder; Diabetes - NIDDM; Hernia; Hypertension; Schizophrenia; iw Seizure; - PSHx: 09:10 gastrostomy tube; iw - Immunization history:: Adult Immunizations unknown. - Social history:: Smoking status: Patient denies any tobacco usage or history of. ROS: 09:24 Constitutional: Negative for fever, chills, and weight loss, Eyes: Negative for injury, jl9 pain, redness, and discharge, ENT: Negative for injury, pain, and discharge, Neck: Negative for injury, pain, and swelling, Cardiovascular: Negative for chest pain, palpitations, and edema, Respiratory: Negative for shortness of breath, cough, wheezing, and pleuritic chest pain, Abdomen/GI: Negative for abdominal pain, nausea, vomiting, diarrhea, and constipation, Back: Negative for injury and pain, : Negative for injury, bleeding, discharge, and swelling, MS/Extremity: Negative for injury and deformity, Skin: Negative for injury, rash, and discoloration, Neuro: Negative for headache, weakness, numbness, tingling, and seizure, Psych: Negative for depression, anxiety, suicide ideation, homicidal ideation, and hallucinations, Allergy/Immunology: Negative for hives, rash, and allergies, Endocrine: Negative for neck swelling, polydipsia, polyuria, polyphagia, and marked weight changes, Hematologic/Lymphatic: Negative for swollen nodes, abnormal bleeding, and unusual bruising. Exam: 09:24 Constitutional: The patient is awake, alert, and in no acute distress. Head/Face: jl9 Normocephalic, atraumatic. Eyes: Pupils equal round and reactive to light, extra-ocular motions intact. Lids and lashes normal. Conjunctiva and sclera are non-icteric and not injected. Cornea within normal limits. Periorbital areas with no swelling, redness, or edema. ENT: Mucous membranes moist. Neck: Trachea midline, no thyromegaly or masses palpated, and no cervical lymphadenopathy. Supple, full range of motion without nuchal rigidity, or vertebral point tenderness. No Meningismus. Chest/axilla: Normal chest wall appearance and motion. Nontender with no deformity. No lesions are appreciated. Cardiovascular: Regular rate and rhythm with a normal S1 and S2. No gallops, murmurs, or rubs. Normal PMI, no JVD. No pulse deficits. Respiratory: Lungs have equal breath sounds bilaterally, clear to auscultation and percussion. No rales, rhonchi or wheezes noted. No increased work of breathing, no retractions or nasal flaring. Abdomen/GI: Soft, non-tender, with normal bowel sounds. No distension or tympany. No guarding or rebound. No evidence of tenderness throughout. Back: No spinal tenderness. No costovertebral tenderness. Full range of motion. Skin: Warm, dry with normal turgor. Normal color with no rashes, no lesions, and no evidence of cellulitis. MS/ Extremity: Pulses equal, no cyanosis. Neurovascular intact. Full, normal range of motion. Neuro: Awake and alert, GCS 15, oriented to person, place, time, and situation. Cranial nerves II-XII grossly intact. Motor strength 5/5 in all extremities. Sensory grossly intact. Cerebellar exam normal. Normal gait. Psych: Awake, alert, with orientation to person, place and time. Behavior, mood, and affect are within normal limits. Vital Signs: 09:09 BP 89 / 67; Pulse 103; Resp 16; Temp 97.2; Pulse Ox 100% on R/A; Weight 44.45 kg; iw Height 5 ft. 5 in. (165.10 cm); 10:00 BP 98 / 71; Pulse 74; Resp 17 S; Pulse Ox 100% on R/A; Pain 9/10; jg9 10:30 BP 94 / 72; Pulse 69; Resp 17 S; Pulse Ox 97% on R/A; Pain 9/10; jg9 11:00 BP 90 / 68; Pulse 69; Resp 20 S; Pulse Ox 100% on R/A; Pain 9/10; jg9 12:00 BP 93 / 75; Pulse 54; Resp 14 S; Pulse Ox 100% ; Pain 4/10; jg9 13:00 BP 101 / 76; Pulse 66; Resp 16 S; Pulse Ox 100% ; Pain 5/10; jg9 14:00 BP 96 / 72; Pulse 52; Resp 16 S; Pulse Ox 99% on R/A; Pain 5/10; jg9 15:00 BP 97 / 77; Pulse 66; Resp 16 S; Pulse Ox 98% on R/A; jg9 09:09 Body Mass Index 16.31 (44.45 kg, 165.10 cm) iw MDM: 09:09 Patient medically screened. 09:25 Data reviewed: vital signs, nurses notes. 15:26 Counseling: I had a detailed discussion with the patient and/or guardian regarding: the historical points, exam findings, and any diagnostic results supporting the discharge/admit diagnosis, the need for outpatient follow up, to return to the emergency department if symptoms worsen or persist or if there are any questions or concerns that arise at home, Patient would not like to wait for repeat potassium. . 05/29 09:12 Order name: Basic Metabolic Panel; Complete Time: 11:00 05/29 09:12 Order name: CBC with Diff; Complete Time: 11:00 05/29 09:12 Order name: Troponin HS; Complete Time: 11:00 05/29 09:12 Order name: XRAY Chest (1 view); Complete Time: 11:03 05/29 09:12 Order name: CT Head Brain wo Cont; Complete Time: 09:53 05/29 09:12 Order name: EKG; Complete Time: 09:12 05/29 09:12 Order name: Cardiac monitoring; Complete Time: 09:31 05/29 09:12 Order name: EKG - Nurse/Tech; Complete Time: 09:31 05/29 09:12 Order name: IV Saline Lock; Complete Time: 10:46 05/29 09:12 Order name: Labs collected and sent; Complete Time: 10:19 jl Administered Medications: 10:45 Drug: Zofran (Ondansetron) 4 mg Route: IVP; Site: left wrist; jg9 10:59 Follow up: Response: No adverse reaction jg9 10:46 Drug: NS 0.9% 1000 ml Route: IV; Rate: 1000 ml; Site: left wrist; jg9 13:17 Follow up: IV Status: Completed infusion; IV Intake: 1000ml jg9 11:45 Drug: morphine 4 mg Route: IVP; Infused Over: 4 mins; Site: left wrist; jg9 12:11 Follow up: Response: No adverse reaction; Pain is decreased jg9 12:00 Drug: Potassium Chloride 20 mEq Route: IV; Rate: bolus; Site: left wrist; jg9 14:11 Follow up: IV Status: Completed infusion; IV Intake: 100ml jg9 12:38 Not Given (Other Intervention Used): Potassium Chloride Liquid 40 mEq PO once jg9 12:39 Drug: Potassium Effervescent Tablet 50 mEq Route: PO; jg9 13:16 Follow up: Response: No adverse reaction jg9 Disposition Summary: 05/29/22 15:25 Discharge Ordered Location: Home jl9 Condition: Stable jl9 Diagnosis - Hypokalemia jl9 Followup: jl9 - With: Private Physician - When: 1 - 2 days - Reason: Recheck today's complaints, Continuance of care, Re-evaluation by your physician Discharge Instructions: - Discharge Summary Sheet jl9 - Potassium Content of Foods jl9 - Hypokalemia jl9 Forms: - Medication Reconciliation Form jl9 - Thank You Letter jl9 - Antibiotic Education jl9 - Prescription Opioid Use jl9 Signatures: Dispatcher [employer] EDXiomara Seay RN RN iw Prokisch, Amanda, RN RN ap3 Gilmore, Jennifer, RN RN jReji Julian jl9 Corrections: (The following items were deleted from the chart) 09:25 09:24 Constitutional: This is a well developed, well nourished patient who is awake, jl9 alert, and in no acute distress. Head/Face: Normocephalic, atraumatic. Eyes: Pupils equal round and reactive to light, extra-ocular motions intact. Lids and lashes normal. Conjunctiva and sclera are non-icteric and not injected. Cornea within normal limits. Periorbital areas with no swelling, redness, or edema. ENT: Mucous membranes moist. Neck: Trachea midline, no thyromegaly or masses palpated, and no cervical lymphadenopathy. Supple, full range of motion without nuchal rigidity, or vertebral point tenderness. No Meningismus. Chest/axilla: Normal chest wall appearance and motion. Nontender with no deformity. No lesions are appreciated. Cardiovascular: Regular rate and rhythm with a normal S1 and S2. No gallops, murmurs, or rubs. Normal PMI, no JVD. No pulse deficits. Respiratory: Lungs have equal breath sounds bilaterally, clear to auscultation and percussion. No rales, rhonchi or wheezes noted. No increased work of breathing, no retractions or nasal flaring. Abdomen/GI: Soft, non-tender, with normal bowel sounds. No distension or tympany. No guarding or rebound. No evidence of tenderness throughout. Back: No spinal tenderness. No costovertebral tenderness. Full range of motion. Skin: Warm, dry with normal turgor. Normal color with no rashes, no lesions, and no evidence of cellulitis. MS/ Extremity: Pulses equal, no cyanosis. Neurovascular intact. Full, normal range of motion. Neuro: Awake and alert, GCS 15, oriented to person, place, time, and situation. Cranial nerves II-XII grossly intact. Motor strength 5/5 in all extremities. Sensory grossly intact. Cerebellar exam normal. Normal gait. Psych: Awake, alert, with orientation to person, place and time. Behavior, mood, and affect are within normal limits. jl9 14:28 09:10 Home Meds: None; iw jg9
[2022-05-29 16:23] VITALS: TEMP 97.2
[2022-05-29 17:00] VITALS: BP 97/77; O2SAT 98
--- NOTE | 2022-05-31 13:49 | EKG ---
Test Date: 2022-05-29 Test Time: 09:23:08 Toe Puncher: DARCIE MEASUREMENT RESULTS: Intervals: Rate: 74 TN: 142 QRSD: 88 QT: 412 QTc: 457 [place]: P: 70 TN: 142 QRS: 108 T: 74 INTERPRETIVE STATEMENTS: Normal sinus rhythm Possible Right ventricular hypertrophy Abnormal ECG Compared to ECG 05/17/2022 16:43:33 Sinus bradycardia no longer present Sinus arrhythmia no longer present Electronically Signed On 05-31-22 13:46:41 CDT by Hitesh Costa
== END 2022-05-29 15:43 | disposition home or self-care (01) ==
LOC: ER 08:46
DX: E87.6 Hypokalemia (principal); E11.9 Type 2 diabetes mellitus without complications; I10 Essential (primary) hypertension; F20.9 Schizophrenia, unspecified
CPT/HCPCS: 96365; 96361; 93005; 85025; 80048; 36415; 84484; 70450; 71045; 96375; 99284; 96366; J3480; J7050; J7030; J2405

== ENCOUNTER 2022-06-15 08:05 | Emergency (ER) | payer OTHER ==
--- OUTSIDE RECORDS SUMMARY | 2022-06-15 08:13 | XMS REPORT | Continuity of Care Document ---
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 2022-03-09 Doctor [facility] ersity of 20:22:10 Unassigned, No [place] [facility] CONSENT/REFUSAL FOR DIAGNOSIS AND 2022-03-09 Doctor [place] of TREATMENT 20:21:53 Unassigned, No [place] [facility] ASSIGNMENT OF BENEFITS 2022-03-09 Doctor Universit y of 20:21:32 Unassigned, No [place] [facility] DISCLOSURE AND CONSENT, MEDICAL 2022-03-05 [facility] of AND SURGICAL PROCEDURES 05:01:00 Unassigned, No [facility] dical Name Branch INTUBATION 2022-02-25 Du [facility] of 17:01:00 [place] [facility] HB ABO GROUPING 2022-02-25 Stephanie Galvez [place] of 15:52:00 [place] [facility] CONSENT/REFUSAL FOR DIAGNOSIS AND 2022-02-25 [facility] TREATMENT 13:23:24 Unassigned, No [place] [facility] COVID-19 (ID NOW RAPID TESTING) 2022-02-25 Nathanael Whitlock of 13:18:00 [place] [facility] LAB ONLY COVID INTERPRETATION 2022-02-25 Nathanael Whitlock Un iversity of 13:18:00 [place] [facility] ASSIGNMENT OF BENEFITS 2022-02-25 Doctor Univers[facility] y of 13:04:20 Unassigned, No [place] [facility] 2022-02-25 [facility] of 05:01:00 Unassigned, No [place] [facility] REFERRAL- REQUEST/RESPONSE 2022-02-18 Doctor Unive rsity of 05:01:00 Unassigned, No [place] [facility] XR CHEST 2 VW 2022-02-04 Liv Boucher [facility] 20:28:00 [facility] CBC WITH DIFF 2022-02-04 [facility] 20:11:00 [facility] BASIC METABOLIC PANEL (NA, K, CL, 2022-02-04 Liv Boucher [place] of CO2, GLUCOSE, BUN, CREATININE, CA) 20:11:00 [facility] HEPATIC FUNCTION PANEL ([id number]) 2022-02-04 Liv Boucher niversity of (ALB,T.PRO,BILI 20:11:00 [facility],BU/BC,ALT,AST,ALK PHOS) [place] PREALBUMIN, SERUM 2022-02-04 [facility] 20:11:00 [facility] Plan of Care Planned Activity Planned Date Details Comments Source Future Scheduled Test 2021-07-24 00:00:00 IMM Influenza [facility] Seasonal Jul to December (>/= 19 yrs) [code = IMM Influenza Seasonal Jul to December (>/= 19 yrs)] Future Scheduled Test 1996 00:00:00 COVID-19 Vaccine (1) [facility] [code = COVID-19 Vaccine (1)] Encounters Start End Encounter Admission Attending Care Care Encounter Source Date/Time Date/Time Type Type Clinicians Facility Department ID 2022-05-18 Outpatient [facility] [id number] [place] 14:53:18 [id number] [facility] 2022-01-18 Outpatient [facility] [id number] [place] 04:45:38 [id number] [facility] 2020-10-06 Inpatient HCAPM JOSE [id number] [facility] 00:50:00 [id number] [facility] 2022-08-10 2022-08-10 Outpatient [facility] [id number] Univers 09:00:00 09:00:00 [id number] ity of [facility] 2022-06-04 2022-06-04 Telephone YARELI Capps 1.2.840.114 [id number] Univers 00:00:00 00:00:00 [facility] 350.1.13.10 ity of CLINICS [place] [id number] [facility] 071 Branch 2022-05-26 2022-05-26 Emergency X ISAEL [facility] ERT [id number] Univers 19:02:00 22:40:00 WATOMERLI ity of [facility] 2022-05-26 2022-05-26 Emergency Janene Taylor [facility] 1.2.840. 114 [id number] Univers 19:02:00 22:40:00 Cindy Akins [place] 350.1.13.10 ity of JB 4.2.7.2.686 [facility] [id number] [facility] 084 Branch 2022-05-05 2022-05-05 Transition OSCAR AraujoAna 1.2.840.114 [id number] Univers 00:00:00 00:00:00 of Care Henrietta WILSON 350.1.13.10 ity of MARC 4.2.7.2.686 [facility] [id number] [facility] 403 Branch 2022-04-26 2022-05-04 Inpatient X AMELIE FERNANDEZ [facility] [id number] Univers 16:01:00 12:18:00 AMELIE FERNANDEZ ity of [facility] 2022-04-26 2022-05-04 [facility] Ruth Charlotte [facility] 1.2.840.11 [id number] Univers 16:01:00 12:18:00 [facility] 350.1. 13.10 ity of [place] 4.2.7.2.686 [place] Amelie Fernandez [facility] [id number] [address] ([facility]) 2022-04-28 2022-04-28 Anesthesia Gayle Lino 1.2.840.1 1 [id number] Univers 09:38:00 10:28:00 Event Radu Schroeder 82479.1.1 ity of 3.104.2.7 [place] .3.660687 Medica l .8 Branch 2022-04-28 2022-04-28 Surgery Eber [facility] 1.2.840.114 [id number] Univers 09:30:00 10:01:00 Derrell NAJERA 350.1.13.10 ity of CARE 4.2.7.2.686 [facility] AT [id number] [place] stephanie Miller [facility] 2022-04-27 2022-04-27 Anesthesia Fawn Johnson 1.2.840.1 [id number] Univers 12:29:50 12:29:50 Event Sabrina Sanchez 10336.1.1 ity of 3.104.2.7 [place] .3.538151 Medica l .8 [place] 2022-04-26 2022-04-26 Travel 1.2.840.1 1.2.814.462 [id number] Univers 00:00:00 00:00:00 10022.1.1 350.1.13.10 ity of 3.104.2.7 4.2.7.3.698 [place] .3.343738 084.8 Medica l .8 [place] 2022-04-05 2022-04-05 Telephone Mitchell 1.2.840.5 [id number] Univers 00:00:00 00:00:00 Mitzy 83122.1.1 ity of 3.104.2.7 [place] .3.427585 Medica l .8 [place] 2022-04-02 2022-04-02 Office [place], 1.2.840.8 [id number] Univers 11:45:00 11:45:00 Visit Negrito 38950.1.1 ity of [place] 3.104.2.7 [place] .3.131663 Medica l .8 [place] 2022-04-02 2022-04-02 Travel 1.2.840.1 1.2.461.648 [id number] Univers 00:00:00 00:00:00 75344.1.1 350.1.13.10 ity of 3.104.2.7 4.2.7.3.698 [place] .3.702436 084.8 Medica l .8 [place] 2022-03-24 2022-03-24 Telephone Nathanael Whitlock 1.2.840.2 [id number] Univers 00:00:00 00:00:00 93914.1.1 ity of 3.104.2.7 [place] .3.475267 Medica l .8 Branch 2022-03-19 2022-03-19 Telephone Nathanael Whitlock 1.2.840.2 [id number] Univers 00:00:00 00:00:00 39335.1.1 ity of 3.104.2.7 [place] .3.128777 Medica l .8 Branch 2022-03-12 2022-03-12 [facility] [place], 1.2.840.1 [id number] Univers 08:13:00 16:20:00 Encounter Negrito 30903.1.1 it y of [place] 3.104.2.7 [place] .3.248395 Medica l .8 Branch 2022-03-12 2022-03-12 Anesthesia Carley Fregoso 1.2.840.1 [id number] Univers 09:44:00 12:14:00 Event Richard Granados 69854.1.1 ity of 3.104.2.7 [place] .3.220886 Medica l .8 Branch 2022-03-12 2022-03-12 Surgery [place], 1.2.840.0 [id number] Univers 09:54:00 12:12:00 Negrito 41030.1.1 ity of [place] 3.104.2.7 [place] .3.363007 Medica l .8 [place] 2022-03-09 2022-03-09 Laboratory Negrito Simeon 1.2.840.7 [id number] Univers 10:15:00 10:30:00 Only Only, Adc Test 96944.1.1 ity of 3.104.2.7 [place] .3.586399 Medica l .8 Branch 2022-03-09 2022-03-09 Travel 1.2.840.1 1.2.080.969 [id number] Univers 00:00:00 00:00:00 65640.1.1 350.1.13.10 ity of 3.104.2.7 4.2.7.3.698 [place] .3.314627 084.8 Medica l .8 Branch 2022-03-05 2022-03-05 Office Walker, 1.2.840.2 [id number] Univers 10:15:00 12:01:28 Visit Negrito 67885.1.1 ity of [place] 3.104.2.7 [place] .3.887224 Medica l .8 Branch 2022-02-25 2022-02-25 Hospital [facility] [place] 1.2.840.0 [id number] Univers 08:04:00 13:21:00 Encounter 83748.1.1 it y of 3.104.2.7 [place] .3.846105 Medica l .8 Branch 2022-02-25 2022-02-25 Surgery [facility] [place] 1.2.840.5 [id number] Univers 09:35:00 12:45:00 96578.1.1 ity of 3.104.2.7 [place] .3.918638 Medica l .8 Branch 2022-02-25 2022-02-25 Anesthesia AritaYung dutta 1.2.840.5 [id number] Univers 11:53:00 12:33:00 Event Francis Wong 42553.1.1 ity of 3.104.2.7 [place] .3.295151 Medica l .8 Branch 2022-02-24 2022-02-24 Travel 1.2.840.1 1.2.423.995 [id number] [id number] Univers 00:00:00 00:00:00 25403.1.1 350.1.13.10 ity of 3.104.2.7 4.2.7.3.698 [place] .3.017349 084.8 Medica l .8 Branch 2022-02-18 2022-02-18 Orders Doctor 1.2.840.9 [id number] Univers 00:00:00 00:00:00 Only Unassigned, 64371.1.1 ity of [place] 3.104.2.7 [place] .3.628616 Medica l .8 [place] 2022-02-15 2022-02-15 Telephone [place], 1.2.840.9 [id number] Univers 00:00:00 00:00:00 Stephanie Rose 10820.1.1 it y of 3.104.2.7 [place] .3.537280 Medica l .8 Branch 2022-02-09 2022-02-09 Telephone [place], 1.2.840.4 [id number] Univers 00:00:00 00:00:00 Stephanie Rose 03987.1.1 it y of 3.104.2.7 [place] .3.808593 Medica l .8 [place] 2022-02-08 2022-02-08 Case [place], 1.2.840.6 [id number] Univers 00:00:00 00:00:00 Management Stephanie Rose 99755.1.1 ity of 3.104.2.7 [place] .3.309751 Medica l .8 [place] 2022-02-04 2022-02-04 Hospital Kamlesh, Gal 1.2.840.6 [id number] Univers 15:17:56 23:59:00 Encounter 08165.1.1 it y of 3.104.2.7 [place] .3.111424 Medica l .8 [place] 2022-02-04 2022-02-04 Sour Bleaching Pleater Kamlesh, Gal 1.2.840.1 [id number] Univers 15:30:00 15:47:42 Visit [facility] 60105.1.1 ity of 3.104.2.7 [place] .3.778594 Medica l .8 [place] 2022-02-04 2022-02-04 Office Kamlesh, Gal 1.2.840.4 [id number] Univers 13:30:00 14:38:59 Visit 01070.1.1 ity of 3.104.2.7 [place] .3.575893 Medica l .8 Branch 2022-02-04 2022-02-04 Travel 1.2.840.1 1.2.665.250 [id number] Univers 00:00:00 00:00:00 63449.1.1 350.1.13.10 ity of 3.104.2.7 4.2.7.3.698 [place] .3.902060 084.8 Medica l .8 Branch 2021-05-25 2021-05-26 Emergency Janene Taylor [facility] 1.2.840.114 [id number] 18:28:00 00:07:00 Msia Howe 350.1.13.10 [place] 4.2.7.2.686 [place] [id number] 2020-12-19 2020-12-19 Orders Doctor NEGRITO 1.2.840.114 [id number] 00:00:00 00:00:00 Only UnassignedNAMRATA 350.1.13.10 [place] [facility] 4.2.7.2.686 [id number] 2020-11-28 2020-11-28 Patient Sharon Bunn 1.2.840.114 [id number] 00:00:00 00:00:00 Outreach Micki Wilson 350.1.13.10 [place] 4.2.7.2.686 [id number] 2020-11-27 2020-11-27 Telephone Angie Aguilar 1.2.151.612 [id number] 00:00:00 00:00:00 Gianni Teresa 350.1.13.10 [facility] 4.2.7.2.686 [id number] 2020-10-06 2020-10-06 Outpatient BEE Garcia LABO [id number] [facility] 23:33:00 23:33:00 [facility] [id number] [facility] Results Test Description Test Time Test Comments Results Result Comments Source COMP. METABOLIC PANEL (17670) 2022-05-27 01:04:32 Test Item Value Reference Range Interpretation Comme nts NA (test code = 1152411550) 135 mmol/L 135-145 K (test code = 6877366134) 2.3 mmol/L 3.5-5 LL CL (test code = 1031279833) 102 mmol/L 98-108 CO2 TOTAL (test code = 9867418781) 21 mmol/L 23-31 L AGAP (test code = 9435963384) 2-16 BUN (test code = 5711676865) 5 mg/dL 7-23 L GLUCOSE (test code = 5261841420) 142 mg/dL 70-110 H CREATININE (test code = 0.68 mg/dL 0.6-1.25 3831340523) TOTAL BILI (test code = 0.6 mg/dL 0.1-1.6 4524016076) CALCIUM (test code = 6645048645) 7.9 mg/dL 8.6-10.6 L T PROTEIN (test code = 0011102117) 7.3 g/dL 6.3-8.2 ALBUMIN (test code = 9176260696) 3.2 g/dL 3.5-5 L ALK PHOS (test code = 1225665617) 100 U/L 34-122 ALTv (test code = 1742-6) 13 U/L 5-50 AST(SGOT) (test code = 3306973241) 17 U/L 13-40 eGFR (test code = 8288457706) mL/min/1.73m2 LU (test code = LU) Association [...] tests). Lab Interpretation (test code = Abnormal 18531-0) [facility] WITH [id number] 00:45:16 Test Item Value Reference Range Interpretation [...] RDW-SD (test code = 49.6 fL 38.5-51.6 69869-2) RDW-CV (test code = 15.1 % 12.1-15.4 788-0) PLT (test code = See_Comment [Automated 777-3) message] The sy stem which generated this result transmitted reference range : 150 - 328 10*3/ ?L. The reference r alisson was not used to interpret this result as normal/abnormal . MPV (test code = 11.2 fL 9.8-13 18765-5) NRBC/100 WBC (test See_Comment [Automat ed code = 6214756505) message] The system which generated this result transmitted reference range : 0.0 - 10.0 /100 WBCs. The refer ence range was not u sed to interpret th is result as normal/abnormal . NRBC x10^3 (test code See_Comment [Auto mated = 6966053871) message] The s ystem which generated this result transmitted reference range : 10*3/?L. The reference range was not used to interpret this result as normal/abnormal . GRAN MAT (NEUT) % 72.3 % (test code = 770-8) IMM GRAN % (test code 0.20 % = 0236428474) LYMPH % (test code = 19.9 % 736-9) MONO % (test code = 6.3 % 5905-5) EOS % (test code = 1.0 % 713-8) BASO % (test code = 0.3 % 706-2) GRAN MAT x10^3(ANC) 6.43 10*3/uL 1.99-6.95 (test code = 0513309218) IMM GRAN x10^3 (test 0-0.06 code = 4178884746) LYMPH x10^3 (test code 1.77 10*3/uL 1.09-3.23 = 731-0) MONO x10^3 (test code 0.56 10*3/uL 0.36-1.02 = 742-7) EOS x10^3 (test code = 0.09 10*3/uL 0.06-0.53 711-2) BASO x10^3 (test code 0.03 10*3/uL 0.01-0.09 = 704-7) Lab Interpretation Abnormal (test code = 46056-5) [facility] METABOLIC PANEL (NA, K, CL, CO2, GLUCOSE, BUN, CREATININE, CA)2022-04-29 10:41:04 Test Item Value Reference Range Interpretation Comments NA (test code = 141 mmol/L 135-145 5299118124) K (test code = 4.1 mmol/L 3.5-5 0408706795) CL (test code = 113 mmol/L 98-108 H 4667355002) CO2 TOTAL (test code = 26 mmol/L 23-31 3467716187) AGAP (test code = 2-16 6595964146) BUN (test code = 2 mg/dL 7-23 L 1797399964) GLUCOSE (test code = 77 mg/dL 70-110 9000231927) CREATININE (test code = 0.43 mg/dL 0.6-1.25 L 7071605487) CALCIUM (test code = 7.5 mg/dL 8.6-10.6 L 6638006535) eGFR (test code = mL/min/1.73m2 0270298797) LU (test code = LU) Association of [...] tests). Lab Interpretation Abnormal (test code = 32096-1) [facility] (NA, K, CL, CO2, GLUCOSE, BUN, CREATININE, CA)2022-04-29 10:41:04 Test Item Value Reference Range Interpretation Comments NA (test code = 141 mmol/L 135-145 8155397578) K (test code = 4.1 mmol/L 3.5-5.0 3150592979) CL (test code = 113 mmol/L 98-108 H 9144935963) CO2 TOTAL (test code = 26 mmol/L 23-31 5668882067) AGAP (test code = 2-16 1241892424) BUN (test code = 2 mg/dL 7-23 L 6010630232) GLUCOSE (test code = 77 mg/dL 70-110 3932377381) CREATININE (test code = 0.43 mg/dL 0.60-1.25 L 0703826026) CALCIUM (test code = 7.5 mg/dL 8.6-10.6 L 9557648611) eGFR (test code = mL/min/1.73m2 6644939217) LU (test code = LU) Association of [...] tests). Lab Interpretation Abnormal (test code = 66718-2) [facility]:02:20 Test Item Value Reference Range Interpretation Comments MAGNESIUM (test code = 8044852041) 1.7 mg/dL 1.7-2.4 Lab Interpretation (test code = Normal 61373-2) [facility] 19:02:20 Test Item Value Reference Range Interpretation Comments MAGNESIUM (test code = 8107348998) 1.7 mg/dL 1.7-2.4 Lab Interpretation (test code = Normal 25717-9) [facility] MET[facility] (NA, K, CL, CO2, GLUCOSE, BUN, CREATININE, CA)2022-04-28 17:52:13 Test Item Value Reference Range Interpretation Comments NA (test code = 142 mmol/L 135-145 7634429900) K (test code = 2.6 mmol/L 3.5-5 LL 8568273339) CL (test code = 109 mmol/L 98-108 H 3754789839) CO2 TOTAL (test code = 26 mmol/L 23-31 9458768581) AGAP (test code = 2-16 6360720869) BUN (test code = 3 mg/dL 7-23 L 6574921512) GLUCOSE (test code = 95 mg/dL 70-110 7636891434) CREATININE (test code = 0.57 mg/dL 0.6-1.25 L 7974067035) CALCIUM (test code = 7.6 mg/dL 8.6-10.6 L 3545490526) eGFR (test code = mL/min/1.73m2 1698181693) LU (test code = LU) Association of [...] tests). Lab Interpretation Abnormal (test code = 88080-0) [facility] METABOLIC PANEL (NA, K, CL, CO2, GLUCOSE, BUN, CREATININE, CA)2022-04-28 17:52:13 Test Item Value Reference Range Interpretation Comments NA (test code = 142 mmol/L 135-145 1781562120) K (test code = 2.6 mmol/L 3.5-5.0 LL 1196869237) CL (test code = 109 mmol/L 98-108 H 4839144002) CO2 TOTAL (test code = 26 mmol/L 23-31 7053289691) AGAP (test code = 2-16 1688423795) BUN (test code = 3 mg/dL 7-23 L 6320485639) GLUCOSE (test code = 95 mg/dL 70-110 3521331325) CREATININE (test code = 0.57 mg/dL 0.60-1.25 L 2297204873) CALCIUM (test code = 7.6 mg/dL 8.6-10.6 L 6789800423) eGFR (test code = mL/min/1.73m2 6568859177) LU (test code = LU) Association of [...] tests). Lab Interpretation Abnormal (test code = 91913-4) [facility] METABOLIC PANEL (NA, K, CL, CO2, GLUCOSE, BUN, CREATININE, CA)2022-04-28 17:52:13 Test Item Value Reference Range Interpretation Comments NA (test code = 142 mmol/L 135-145 9795376237) K (test code = 2.6 mmol/L 3.5-5.0 LL 6976773729) CL (test code = 109 mmol/L 98-108 H 5262828987) CO2 TOTAL (test code = 26 mmol/L 23-31 5430633255) AGAP (test code = 2-16 4571542568) BUN (test code = 3 mg/dL 7-23 L 3036784674) GLUCOSE (test code = 95 mg/dL 70-110 6638906164) CREATININE (test code = 0.57 mg/dL 0.60-1.25 L 6633817361) CALCIUM (test code = 7.6 mg/dL 8.6-10.6 L 1908040963) eGFR (test code = mL/min/1.73m2 6600149471) LU (test code = LU) Association of [...] tests). Lab Interpretation Abnormal (test code = 01228-7) [facility] WITHOUT [id number] 17:16:02 Test Item Value Reference Range Interpretation Comments WBC (test code = 6690-2) See_Comment [A utomated message] The system [employer] generated this result transmit annette reference range : 4.20 - 10.70 10*3/?L. The reference range was not used to interpret this result as normal/abnormal . RBC (test code = 789-8) See_Comment L [Au tomated message] The system [employer] generated this result transmit annette reference range [...] 777-3) See_Comment [Au tomated message] The system [employer] generated this result transmit annette reference range : 150 - 328 10*3/?L. The reference range was not used to interpret this result as normal/abnormal . MPV (test code = 10.7 fL 9.8-13 86170-8) RDW-CV (test code = 14.9 % 12.1-15.4 788-0) RDW-SD (test code = 48.9 fL 38.5-51.6 72734-4) NRBC x10^3 (test code = See_Comment [Au tomated message] [id number]) The system [employer] generated this result transmit annette reference range : 10*3/?L. The reference range was not used to interpret this result as normal/abnormal . NRBC/100 WBC (test code See_Comment [Au tomated message] = [id number]) The system [employer] generated this result transmit annette reference range : 0.0 - 10.0 /100 WBC s. The reference r alisson was not used to interpret this result as normal/abnormal . IPF % (test code = 5307583724) Lab Interpretation (test Abnormal code = 79936-8) [facility] WITHOUT [id number] 17:16:02 Test Item Value Reference Range Interpretation Comments WBC (test code = 6690-2) See_Comment [A utomated message] The system [employer] generated this result transmit annette reference range : 4.20 - 10.70 10*3/?L. The reference range was not used to interpret this result as normal/abnormal . RBC (test code = 789-8) See_Comment L [Au tomated message] The system [employer] generated this result transmit annette reference range [...] 777-3) See_Comment [Au tomated message] The system [employer] generated this result transmit annette reference range : 150 - 328 10*3/?L. The reference range was not used to interpret this result as normal/abnormal . MPV (test code = 10.7 fL 9.8-13.0 78721-0) RDW-CV (test code = 14.9 % 12.1-15.4 788-0) RDW-SD (test code = 48.9 fL 38.5-51.6 77572-8) NRBC x10^3 (test code = <0.01 See_Comment [Au tomated message] 5526272772) The system [employer] generated this result transmit annette reference range : 10*3/?L. The reference range was not used to interpret this result as normal/abnormal . NRBC/100 WBC (test code See_Comment [Au tomated message] = 7555838548) The system [facility] generated this result transmit annette reference range : 0.0 - 10.0 /100 WBC s. The reference r alisson was not used to interpret this result as normal/abnormal . IPF % (test code = 2146489598) Lab Interpretation (test Abnormal code = 15764-2) [facility] WITHOUT [id number] 17:16:02 Test Item Value Reference Range Interpretation Comments WBC (test code = 6690-2) See_Comment [A utomated message] The system [facility] generated this result transmit annette reference range : 4.20 - 10.70 10*3/?L. The reference range was not used to interpret this result as normal/abnormal . RBC (test code = 789-8) See_Comment L [Au tomated message] The system [facility] generated this result transmit annette reference range [...] 777-3) See_Comment [Au tomated message] The system [facility] generated this result transmit annette reference range : 150 - 328 10*3/?L. The reference range was not used to interpret this result as normal/abnormal . MPV (test code = 10.7 fL 9.8-13.0 75294-6) RDW-CV (test code = 14.9 % 12.1-15.4 788-0) RDW-SD (test code = 48.9 fL 38.5-51.6 90081-8) NRBC x10^3 (test code = <0.01 See_Comment [Au tomated message] 4796950415) The system [employer] generated this result transmit annette reference range : 10*3/?L. The reference range was not used to interpret this result as normal/abnormal . NRBC/100 WBC (test code See_Comment [Au tomated message] = 9733676407) The system [employer] generated this result transmit annette reference range : 0.0 - 10.0 /100 WBC s. The reference r alisson was not used to interpret this result as normal/abnormal . IPF % (test code = 8704919171) Lab Interpretation (test Abnormal code = 34710-3) [id number] 22:31:26 Test Item Value Reference Range Interpretation Comments K (test code = 1397330150) 3.3 mmol/L 3.5-5 L Lab Interpretation (test code = Abnormal 65907-4) [facility] METABOLIC PANEL (NA, K, CL, CO2, GLUCOSE, BUN, CREATININE, CA)2022-04-27 22:31:26 Test Item Value Reference Range Interpretation Comments NA (test code = 144 mmol/L 135-145 2161426648) K (test code = 3.3 mmol/L 3.5-5 L 1258481236) CL (test code = 112 mmol/L 98-108 H 4502826673) CO2 TOTAL (test code = 27 mmol/L 23-31 2474521554) AGAP (test code = 2-16 0238229693) BUN (test code = 5 mg/dL 7-23 L 2968959537) GLUCOSE (test code = 118 mg/dL 70-110 H 8150686404) CREATININE (test code = 0.63 mg/dL 0.6-1.25 0859550597) CALCIUM (test code = 7.6 mg/dL 8.6-10.6 L 6584130751) eGFR (test code = mL/min/1.73m2 1226446120) LU (test code = LU) Association of [...] tests). Lab Interpretation Abnormal (test code = 30099-8) [facility] [id number] 22:31:26 Test Item Value Reference Range Interpretation Comments K (test code = 3835529549) 3.3 mmol/L 3.5-5.0 L Lab Interpretation (test code = Abnormal 66789-2) [facility] [id number] 22:31:26 Test Item Value Reference Range Interpretation Comments K (test code = 7024779156) 3.3 mmol/L 3.5-5.0 L Lab Interpretation (test code = Abnormal 29484-0) [facility] (NA, K, CL, CO2, GLUCOSE, BUN, CREATININE, CA)2022-04-27 22:31:26 Test Item Value Reference Range Interpretation Comments NA (test code = 144 mmol/L 135-145 1800835827) K (test code = 3.3 mmol/L 3.5-5.0 L 0998329532) CL (test code = 112 mmol/L 98-108 H 5610110339) CO2 TOTAL (test code = 27 mmol/L 23-31 2950817166) AGAP (test code = 2-16 3235261917) BUN (test code = 5 mg/dL 7-23 L 7485023089) GLUCOSE (test code = 118 mg/dL 70-110 H 2833196264) CREATININE (test code = 0.63 mg/dL 0.60-1.25 8233527733) CALCIUM (test code = 7.6 mg/dL 8.6-10.6 L 1265202656) eGFR (test code = mL/min/1.73m2 7158169117) LU (test code = LU) Association of [...] tests). Lab Interpretation Abnormal (test code = 68394-6) [facility]2022-07-05 21:22:49 Test Item Value Reference Range Interpretation Comments MAGNESIUM (test code = 4365267918) 2.1 mg/dL 1.7-2.4 Lab Interpretation (test code = Normal 05217-5) [facility]2022-07-05 21:22:49 Test Item Value Reference Range Interpretation Comments MAGNESIUM (test code = 8064799876) 2.1 mg/dL 1.7-2.4 Lab Interpretation (test code = Normal 98897-2) [facility]2022-07-05 21:22:49 Test Item Value Reference Range Interpretation Comments MAGNESIUM (test code = 9866838640) 2.1 mg/dL 1.7-2.4 Lab Interpretation (test code = Normal 40358-5) [facility] (NA, K, CL, CO2, GLUCOSE, BUN, CREATININE, CA)2022-04-27 15:50:29 Test Item Value Reference Range Interpretation Comments NA (test code = 143 mmol/L 135-145 0784446839) K (test code = 2.4 mmol/L 3.5-5 LL 0008692095) CL (test code = 110 mmol/L 98-108 H 7109728579) CO2 TOTAL (test code = 28 mmol/L 23-31 6433252635) AGAP (test code = 2-16 2683601216) BUN (test code = 4 mg/dL 7-23 L 1245327088) GLUCOSE (test code = 56 mg/dL 70-110 L 7101145471) CREATININE (test code = 0.65 mg/dL 0.6-1.25 1422030973) CALCIUM (test code = 7.7 mg/dL 8.6-10.6 L 6674643393) eGFR (test code = mL/min/1.73m2 4672225405) LU (test code = LU) Association of [...] tests). Lab Interpretation Abnormal (test code = 16626-0) [facility] METABOLIC PANEL (NA, K, CL, CO2, GLUCOSE, BUN, CREATININE, CA)2022-04-27 15:50:29 Test Item Value Reference Range Interpretation Comments NA (test code = 143 mmol/L 135-145 4163708091) K (test code = 2.4 mmol/L 3.5-5.0 LL 8336572958) CL (test code = 110 mmol/L 98-108 H 4727253773) CO2 TOTAL (test code = 28 mmol/L 23-31 4492316808) AGAP (test code = 2-16 8275691799) BUN (test code = 4 mg/dL 7-23 L 8522200994) GLUCOSE (test code = 56 mg/dL 70-110 L 8414445440) CREATININE (test code = 0.65 mg/dL 0.60-1.25 1515410999) CALCIUM (test code = 7.7 mg/dL 8.6-10.6 L 6654864611) eGFR (test code = mL/min/1.73m2 9781002356) LU (test code = LU) Association of [...] tests). Lab Interpretation Abnormal (test code = 74512-2) [facility] [id number] 23:23:37 Test Item Value Reference Interpretation Comments Range TROPONIN I (test 0.007 ng/mL See_Comment [Automated code = 1137684917) message] The system which generated this result [...] biotin. Lab Interpretation Normal (test code = 80123-0) [facility] METABOLIC PANEL ([id number])2022-04-26 23:23:37 Test Item Value Reference Range Interpretation Comments NA (test code = 143 mmol/L 135-145 2406446231) K (test code = 2.3 mmol/L 3.5-5 LL 7898669744) CL (test code = 107 mmol/L 98-108 1402592157) CO2 TOTAL (test code = 27 mmol/L 23-31 8342761867) AGAP (test code = 2-16 1470066709) BUN (test code = 4 mg/dL 7-23 L 5325529562) GLUCOSE (test code = 86 mg/dL 70-110 5184713969) CREATININE (test code = 0.73 mg/dL 0.6-1.25 7096108988) TOTAL BILI (test code = 0.7 mg/dL 0.1-1.6 8426528422) CALCIUM (test code = 7.6 mg/dL 8.6-10.6 L 9952386687) T PROTEIN (test code = 6.5 g/dL 6.3-8.2 9450899511) ALBUMIN (test code = 2.7 g/dL 3.5-5 L 8457884290) ALK PHOS (test code = 96 U/L 34-122 5068844921) ALTv (test code = 13 U/L 5-50 1742-6) AST(SGOT) (test code = 22 U/L 13-40 0658225170) eGFR (test code = mL/min/1.73m2 2297840564) LU (test code = LU) Association of [...] tests). Lab Interpretation Abnormal (test code = 66074-5) [facility]TR[facility] [id number] 23:23:37 Test Item Value Reference Interpretation Comments Range TROPONIN I (test 0.007 ng/mL See_Comment [Automated code = 4764566992) message] The system which generated this result [...] biotin. Lab Interpretation Normal (test code = 46777-7) [facility]. METABOLIC PANEL (99913)2022-04-26 23:23:37 Test Item Value Reference Range Interpretation Comments NA (test code = 143 mmol/L 135-145 1617538232) K (test code = 2.3 mmol/L 3.5-5.0 LL 8277856325) CL (test code = 107 mmol/L 98-108 8883529386) CO2 TOTAL (test code = 27 mmol/L 23-31 5971439939) AGAP (test code = 2-16 5310806844) BUN (test code = 4 mg/dL 7-23 L 1729873832) GLUCOSE (test code = 86 mg/dL 70-110 0451581360) CREATININE (test code = 0.73 mg/dL 0.60-1.25 7459978249) TOTAL BILI (test code = 0.7 mg/dL 0.1-1.8 5046375936) CALCIUM (test code = 7.6 mg/dL 8.6-10.6 L 4583322050) T PROTEIN (test code = 6.5 g/dL 6.3-8.2 9853008128) ALBUMIN (test code = 2.7 g/dL 3.5-5.0 L 5357901013) ALK PHOS (test code = 96 U/L 34-122 3323690416) ALTv (test code = 13 U/L 5-50 1742-6) AST(SGOT) (test code = 22 U/L 13-40 9411575098) eGFR (test code = mL/min/1.73m2 7412603178) LU (test code = LU) Association of [...] tests). Lab Interpretation Abnormal (test code = 45518-1) [facility] Center[facility]EN[facility] [id number] 23:23:37 Test Item Value Reference Interpretation Comments Range TROPONIN I (test 0.007 ng/mL See_Comment [Automated code = 9522930858) message] The system which generated this result [...] biotin. Lab Interpretation Normal (test code = 24768-5) [facility] (38975)2022-04-26 23:23:37 Test Item Value Reference Range Interpretation Comments NA (test code = 143 mmol/L 135-145 4512425193) K (test code = 2.3 mmol/L 3.5-5.0 LL 0964619224) CL (test code = 107 mmol/L 98-108 2692955149) CO2 TOTAL (test code = 27 mmol/L 23-31 4707253793) AGAP (test code = 2-16 4293085198) BUN (test code = 4 mg/dL 7-23 L 0921751864) GLUCOSE (test code = 86 mg/dL 70-110 5858276851) CREATININE (test code = 0.73 mg/dL 0.60-1.25 9805616104) TOTAL BILI (test code = 0.7 mg/dL 0.1-1.0 7048773712) CALCIUM (test code = 7.6 mg/dL 8.6-10.6 L 9559975252) T PROTEIN (test code = 6.5 g/dL 6.3-8.2 3645247991) ALBUMIN (test code = 2.7 g/dL 3.5-5.0 L 2666492851) ALK PHOS (test code = 96 U/L 34-122 6428744109) ALTv (test code = 13 U/L 5-50 1742-6) AST(SGOT) (test code = 22 U/L 13-40 2722800631) eGFR (test code = mL/min/1.73m2 7191575150) LU (test code = LU) Association of [...] tests). Lab Interpretation Abnormal (test code = 99015-5) [facility] [id number] 23:20:37 Test Item Value Reference Range Interpretation Comments NT-proBNP (test code 393 pg/mL See_Comment H [Autom ated = 7935582981) message] The system which generated this result transmitted reference range : <=125. The reference range was not used to interpret this result as normal/abnormal . LU (test code = LU) Biotin has been reported to cause a negative bias, interpret results relative to patient's use of biotin. Lab Interpretation Abnormal (test code = 35858-8) [facility] [id number] 23:20:37 Test Item Value Reference Range Interpretation Comments NT-proBNP (test code 393 pg/mL See_Comment H [Autom ated = 4984579901) message] The system which generated this result transmitted reference range : <=125. The reference range was not used to interpret this result as normal/abnormal . LU (test code = LU) Biotin has been reported to cause a negative bias, interpret results relative to patient's use of biotin. Lab Interpretation Abnormal (test code = 47889-4) [facility] [id number] 23:20:37 Test Item Value Reference Range Interpretation Comments NT-proBNP (test code 393 pg/mL See_Comment H [Autom ated = 9398129943) message] The system which generated this result transmitted reference range : <=125. The reference range was not used to interpret this result as normal/abnormal . LU (test code = LU) Biotin has been reported to cause a negative bias, interpret results relative to patient's use of biotin. Lab Interpretation Abnormal (test code = 74398-2) [facility] 23:11:39 Test Item Value Reference Range Interpretation Comments LIPASE (test code = 6957316286) 78 U/L 0-220 Lab Interpretation (test code = Normal 96317-7) [facility] 23:11:39 Test Item Value Reference Range Interpretation Comments LIPASE (test code = 1010196720) 78 U/L 0-220 Lab Interpretation (test code = Normal 72702-6) [facility] 23:11:39 Test Item Value Reference Range Interpretation Comments LIPASE (test code = 9809975947) 78 U/L 0-220 Lab Interpretation (test code = Normal 50601-1) [facility] WITH [id number] 22:55:18 Test Item Value Reference Range Interpretation Comments WBC (test code = See_Comment [Automated 6690-2) message] The sy stem which generated this result transmitted reference range : 4.20 - 10.70 10*3/?L. The reference range was not used to interpret this result as normal/abnormal . RBC (test code = See_Comment L [Automated 169-8) message] The sy stem which generated this [...] RDW-SD (test code = 45.2 fL 38.5-51.6 10982-8) RDW-CV (test code = 14.3 % 12.1-15.4 788-0) PLT (test code = See_Comment [Automated 777-3) message] The sy stem which generated this result transmitted reference range : 150 - 328 10*3/ ?L. The reference r alisson was not used to interpret this result as normal/abnormal . MPV (test code = 10.5 fL 9.8-13 79852-8) NRBC/100 WBC (test See_Comment [Automat ed code = 9398042218) message] The system which generated this result transmitted reference range : 0.0 - 10.0 /100 WBCs. The refer ence range was not u sed to interpret th is result as normal/abnormal . NRBC x10^3 (test code See_Comment [Auto mated = 7054592957) message] The s ystem which generated this result transmitted reference range : 10*3/?L. The reference range was not used to interpret this result as normal/abnormal . GRAN MAT (NEUT) % 73.6 % (test code = 770-8) IMM GRAN % (test code 0.30 % = 4522432112) LYMPH % (test code = 20.6 % 736-9) MONO % (test code = 4.9 % 5905-5) EOS % (test code = 0.3 % 713-8) BASO % (test code = 0.3 % 706-2) GRAN MAT x10^3(ANC) 6.49 10*3/uL 1.99-6.95 (test code = 9429356507) IMM GRAN x10^3 (test 0.03 10*3/uL 0-0.06 code = 1570403875) LYMPH x10^3 (test code 1.82 10*3/uL 1.09-3.23 = 731-0) MONO x10^3 (test code 0.43 10*3/uL 0.36-1.02 = 742-7) EOS x10^3 (test code = 0.03 10*3/uL 0.06-0.53 L 711-2) BASO x10^3 (test code 0.03 10*3/uL 0.01-0.09 = 704-7) Lab Interpretation Abnormal (test code = 08744-1) [facility] WITH [id number] 22:55:18 Test Item Value Reference Range Interpretation [...] RDW-SD (test code = 45.2 fL 38.5-51.6 30469-9) RDW-CV (test code = 14.3 % 12.1-15.4 788-0) PLT (test code = See_Comment [Automated 777-3) message] The sy stem which generated this result transmitted reference range : 150 - 328 10*3/ ?L. The reference r alisson was not used to interpret this result as normal/abnormal . MPV (test code = 10.5 fL 9.8-13.0 35632-4) NRBC/100 WBC (test See_Comment [Automat ed code = 4972190943) message] The system which generated this result transmitted reference range : 0.0 - 10.0 /100 WBCs. The refer ence range was not u sed to interpret th is result as normal/abnormal . NRBC x10^3 (test code <0.01 See_Comment [Auto mated = 2193024043) message] The s ystem which generated this result transmitted reference range : 10*3/?L. The reference range was not used to interpret this result as normal/abnormal . GRAN MAT (NEUT) % 73.6 % (test code = 770-8) IMM GRAN % (test code 0.30 % = 5919664182) LYMPH % (test code = 20.6 % 736-9) MONO % (test code = 4.9 % 5905-5) EOS % (test code = 0.3 % 713-8) BASO % (test code = 0.3 % 706-2) GRAN MAT x10^3(ANC) 6.49 10*3/uL 1.99-6.95 (test code = 6459070741) IMM GRAN x10^3 (test 0.03 10*3/uL 0.00-0.06 code = 3364867131) LYMPH x10^3 (test code 1.82 10*3/uL 1.09-3.23 = 731-0) MONO x10^3 (test code 0.43 10*3/uL 0.36-1.02 = 742-7) EOS x10^3 (test code = 0.03 10*3/uL 0.06-0.53 L 711-2) BASO x10^3 (test code 0.03 10*3/uL 0.01-0.09 = 704-7) Lab Interpretation Abnormal (test code = 44587-0) [facility] WITH [id number] 22:55:18 Test Item Value Reference Range Interpretation [...] RDW-SD (test code = 45.2 fL 38.5-51.6 19998-8) RDW-CV (test code = 14.3 % 12.1-15.4 788-0) PLT (test code = See_Comment [Automated 777-3) message] The sy stem which generated this result transmitted reference range : 150 - 328 10*3/ ?L. The reference r alisson was not used to interpret this result as normal/abnormal . MPV (test code = 10.5 fL 9.8-13.0 05012-5) NRBC/100 WBC (test See_Comment [Automat ed code = 3689263433) message] The system which generated this result transmitted reference range : 0.0 - 10.0 /100 WBCs. The refer ence range was not u sed to interpret th is result as normal/abnormal . NRBC x10^3 (test code <0.01 See_Comment [Auto mated = 2034284457) message] The s ystem which generated this result transmitted reference range : 10*3/?L. The reference range was not used to interpret this result as normal/abnormal . GRAN MAT (NEUT) % 73.6 % (test code = 770-8) IMM GRAN % (test code 0.30 % = 8075559815) LYMPH % (test code = 20.6 % 736-9) MONO % (test code = 4.9 % 5905-5) EOS % (test code = 0.3 % 713-8) BASO % (test code = 0.3 % 706-2) GRAN MAT x10^3(ANC) 6.49 10*3/uL 1.99-6.95 (test code = 4710698381) IMM GRAN x10^3 (test 0.03 10*3/uL 0.00-0.06 code = 0089125543) LYMPH x10^3 (test code 1.82 10*3/uL 1.09-3.23 = 731-0) MONO x10^3 (test code 0.43 10*3/uL 0.36-1.02 = 742-7) EOS x10^3 (test code = 0.03 10*3/uL 0.06-0.53 L 711-2) BASO x10^3 (test code 0.03 10*3/uL 0.01-0.09 = 704-7) Lab Interpretation Abnormal (test code = 75450-3) [facility] [id number] 16:42:42 Test Item Value Reference Range Interpretation Comments Case Report (test code Surgical Pathology ? ? = [id number]) ?Case: [id number] ? Authorizing Provider: ?Negrito Simeon MD ? Collected: ? 03/12/2022 1050 ?Ordering Location: ? ? [facility] ? ? ?Received: ?03/12/2022 1656 ? [facility] ?Pathologist: ? Carolin Ruiz MD ? Specimens: ? A) - APPENDIX ? B) - HERNIA SAC, RIGHT INGUINAL, RIGHT INGUINAL HERNIA SAC ? Final Diagnosis (test j1kidPZuBIJas0zyXBRdpJ code = 2769510163) FuZzEwMzNcZnRuYmpcdWMx IHtccnRmMVxhbnNpXGRlZm joejphRIQlJLB7dnKoJTNi YTP4VSR4PwXtGTEkEdy2II JpOU7flJtldZp1xIfiRPFz jeY0gQKmHGyye7ptPWK3v2 uqqrbsEWRuTWllZb3exRDx vFrpKoUfNMVpHBo3fL74ZS LkaT0udZHzFJwsjqRnGtH2 WOzrJGMlWtZ0DHDtpCPhLY U3qTwqEYGboupbBmZ7APbq GHWzgyngNRy4BZtfILAmvU B4ASDnoFYqM3PiXRUsTA3l lti3NKN7BPspJBVyNsA2MO EhmAPrBVRdpEmcJRqns336 VHU0GhOuRPXqunIsqPvinL 9bZwKoINgmFIQrLR3cFTVK QP3GJOkaQLYHFYTRTFJTBK 9NWTpccGFyICAgICAtIEJF TklHTiBBUFBFTkRJWCBUSV MIFYNsB7cIFUKKAQQPMNxh G46NL5LCPGxSWcXGXfBTIR FPRMMTSW9XBYQHQUchGQXP SG7JRPRGHMSSFSFniFXgLY JzhuCHZoDjS8xlEuTtsWPm SEVSTklBIFNBQywgRVhDSV TNX843UKVknqa+OY3umtb+ PI9nVSWEEfcHVuXHIONFPA gKKPzCIXAPOQ2SYDIHURXO Y6KKVUFYW8MnEPjQD8MMMP sUYJxkVgNBY9BTZLGzW73N C7VQEXeKZkdoSOWwkfUgFO SmEIIxP04VH4rFZAVUJJSR RONIIYaOUm5LZKEHRGBsbM FoWHEcX3WvNYAmZPQtcorj czIyIExpbmRzYXkgQmlnaG DpESAFZnNkRQ2rQZ0bGLRb GTA5IcYbCLEBVCScskathv HnUJVegf69CQI3PcLad1O0 LXSqHmEeOMTjAD8pcFrmFP JcBV2rPIRdZ7kvgI9garx5 UkWnBYHvFuJ0DFBmyqX3Rr d4PLFnLBngz8kuf9BkI3Sk nYIlzMk2z7krZCNlJxM2pX LdFTcxS0sqezIllZOiFZQi NTq8zGniIlBgEHQfv6ggai BcZmNoYXJzZXQwIENhbGli zmn4bC92UOAqmR0muTTpLU wqdnJtEqM6YDkjNDSwWdK7 XMLuvPAnXFRdS2fzSTAcSW vkHSWpVQfcvRStFKD7tJyc f1U4cCPjeNHilSflXcTlVa QjZEUGz2YdOBx0qDhhB1Vm RNUcXvZ6jAKfPJLhYCyzRN CyHPFmfvI2wC21JCkfkcQ0 qTYwd3Tsz76gh688lL4ppI OxCHW1PESwAOSsiFUjGQWr BXC7SPRkuOSuH4biSUWxAV 0iuupaIOsbTEocFHCseWC1 NAOthWCgO5PsSDDtWRauVE Lszln2AiRqVw4ceJFnfVbg ANmxp4rso1syvRTmZdx7AM NsWwLfQucaLMzim2Hsa5ch KSSnpb3fMGJ2kCEmbHlnl2 Q6vAHiXQBbqSCbpzQoTWAy DuR2KNgqIN6ccm91GQGiUC M0zo7poGKmyKhsdpSjgAXo BKfyE4VcLUTvk010EUWgE8 ZkRHVsg1T7xhAcNqRfQYGx fXF4hfU5FCElMDr7nMZeiw D2agTldYEmV8wxgB5mQLVm GE2nabaiw7knKKkxQVxaEY DfgBJ8yhU8VQUiiCUxY2Bd eE9nGPQbQRdyAXDtmzv1Sy PiHg8ytTNxnPosYBwrGkbb YWdlXHBnbmNvbnRccGduZG VjXHBsYWluXHBsYWluXGYw PMUqGyBhcHjsmTzcgG2pCd DhYaHrLHcnTH3pGENnQ0to eEHzRWGzLSYbE3mvAcXimR 9jaFxmMVxjZjJcZnMyMFxw YXIgSSBoYXZlIHBlcnNvbm EwkHtldvD9cWF5URSyRWsh JDHmAIHejTMopp2cfPqoFR PhMV2tJZEafxOvMHxymVjq ASvpQNL5CIZsuWQymATvgY FkZSBieSByZXNpZGVudHMs XOUhdJget2Imq0HbcJT3kA 0bu1xzd8MbPKCkhAE5FX14 fcU2kL4xXHYwWJ6dVYGiZW 5siILwdZHxWHXmu84kpOmd cyByZXBvcnQuXHBsYWluXG YyXGZzMjhcbGFuZzEwMzNc aGljaFxmMlxkYmNoXGYyXG crW6gxVxIdVtAtJMmnDOY7 yKhxagHiGIabc5BkI0VpFj AwMFxhbnNpXGRlZmxhbmcx FDMlAUX9eySfHEBeZLsnPO DsKNztEr5brFJtwJjnXjTo VUYhr9cilfUQWGilLqDqJ5 19RIRaJTjja7ade3WlGGLb bVUfc2A7EMGDtqkrgLp1gR agK07vx5T1XdsyZ6vvCNNv BLMiE1EbFA8dWAIeCco9SU T6OLV4AFUzQCFpU3SbQL2n CVKquIOgHRn9b6ojoMvjCI WeTTW8n3slIQzqzcE9OF8l hv8umKg2g8vltqZdGNWhEN GbyZNFTVAxI0IsxAktMn8h nTj5jVtjFichDFQ2Dqi5GZ 0wsh79dbk6sQptEAKdfrro HrH3XJtuIVJjyecbQEf6TG bqUUCtbSQ4IMAwyLLtN5Xd XCFuPD8inaj4PWL5YMnmIW TrNqT9NTSgfPCsULPteTzg DMfpx177YJM9JeSqFM9aT6 Gqw7E4qE1jdQJfDHKyjQAa MdLvYJJtpz8gcRCqYDxfw6 JqZ90tpXT9NKpvo7xvKZ6b YrK4lfMpONuan4celA4hLh V6HXfoRB4pjx72JDUnHYS6 nv4tpDUtzEvrnkIkiLMsUN thD4KlMBBvy759WGZkI5Sc LHPrb9Y3quGqZwXgYMZqxN S9wqY7RQWeXRs5cVEegsP5 ncJxcYPnI7locK5eWHIcBS 1xblbvl0qjVYaySXjnEGJs iLA0klQ3BKOkhWPiS8WfeZ 7pMDPgPTvsLYAhjvi6MoUj Ol7vhSVoeWupRXhcWlhdJC dlXHBnbmNvbnRccGduZGVj XHBsYWluXHBsYWluXGYwXG PtYbElzHOzAQhlf2QxxxLr pQgcOAUbAQj4lfNeeonfjF n9uNYxeEsfMBCmbEjenV8f SuIuJtPfWMqbIM2dXLUdH9 kvzURwTBLfBUXtQ6boItQd pK1lqHygSYheQqWuWtCnYI xsdHJjaFxwYXIgSSBoYXZl FWOmbyLthiJdxXpazlM0gI P0CYPnZHbySZWmOMKeqFOz ij2tbHjyNREcGO6yBYMubq AcUQogvOqgGWosXSK1YLAt bWVudHMgbWFkZSBieSByZX HiBOYqnGXqBMQiaFynt9Og m7MkrGS2kG1zm4fyj0WrWB WjlBB2FN11qbT0wM8cNBEp VH8lUBRqEE1kjDCnbMNzAH Hcr59olFnyrzWoUXUzktYy XHBsYWluXGYxXGZzMjBcbG FuZzEwMzNcaGljaFxmMVxk LkDkHONwBGupO0gsCuLwF9 YyXGZzMjBccGFyXHBhclxw DNOzr6TeYpTrk7ltIUnpv1 ivyZh5PCocqCZiefnfCCev lyO1LZSmKZokNAGjYZJcEN RcbGFuZzEwMzNcaGljaFxm ZYjbXuEzXQNiGYspF7dvMz RbQ8XfISZrPGKgsLSyO5zn DXY8jR3hi4hit5SegEHbOu Kld9rkrjSwSRBxpBQqehKl hNUqJIWwj0AeHDLwOVEjKK BNOl3LDUFesBJgG9h6jHHK TS9hqLKbDBBtUOMtO9XhTb HHmaWtm2Y8KBDprXSzQRKL CSUcwRHvM1n6aNemGMasXe p0WrIzdWaowO3yVvJmIcWt KQtjOF1bRHLyI0lhxBYjLC RqLMQeC2wvYvNgqC7vpFvz MVxjZjJcZnMyMFxsdHJjaF plFEY6vQ== Clinical Information RIGHT INGUINAL HERNIA (test code = [id number]) Gross Description (test y9hxwPSgATTygLNRDYUxX3 code = [id number]) vgqtDdYYPuvZJyJ0Irnckk HGjfQI7mVG5jwGatvWZfiX SgTU1EYEVcKnCsNNOkxSAz gdEkPdJlZDPmmOPsaNO0NA IkMD1arttpXEwxYGgyQLEo agU4JXBirIObS3GuVOUgOH 9cmhniVFY4GBaguC7lyqSW SiqwEx2jgKYwoRubFaDwOf NoYXJzZXQwXGZuaWwgQXJp NGp8bL1NKlmkHPQ2AZLJJc apCOJxBG4Od1avMJSrzOFj XCP3XEevzDGrCBFwFRPlIR e4GEIqLJcclLRsNS3imAee VtjjyMtez0VfhSYdFWjjFV MkPZUeOYgfTAHrZV9AJxSl KGR4VIezRAqrWLk8VQt5HL 9WUyAiICAxODgyOTUyMSIg AYr0QZytTQ0PNOG1OlX4ET D4IrnqZGBmXpmnFCs2KWXb XFxmIEFyaWFsIFxcZnMgMT NsQNojjLSmUO2bmPdlyOYj blxmczIwIFNQRUNJTUVOIE ZaoWEjRI6GPNLjICdoHBVm uKPNCZA0OS9rPOXLXoshwT FtYABffMmaKSdezZ0lCS5H BBp6pqMtJCBpMqEjI5OfL5 xpIL6wQBXpugOfIXPjjMTu HBNbmrMad3XxCPgwypDrWL JlbGVkIHdpdGggdGhlIHBh xYevpqPmhfDuSO7gLUKKQZ YtqB2jGETaTbFaaHRfCVt4 VzvlJH9yCXQwonNsg5SeVZ 9mIGFuIGludGFjdCwgdmVy wAajr2PxFBAjiMJnLFr7UP v3PgSoB41ltB0hhQRoN0Td WUlhLV12XTUoIWBwgSXuqj TilLXqLSWmolkgg7h5mVEo dFWdH5qrTHFbWKAoPJAuIN 9obMyvWP0uADXtH9E2bRPs nGnpOCLqWPOyU1Xgr73loE VlR2cyClCGvPWwg6Uqx3Lo PCexYQHcjj2kxH1aQXVlTD JldsJfw54cxiNuvUp6GEZe a802lIN3gVMoHGNinmfyl7 TuVLU2QFYdTHjbSmVCuRBw d6OvQ8nwJJ9gkKSns5WhgA JybLfzi6ShdIpmmdZySGAt CJUtxwEnqOI0RA4muJhlul WxsTZxu1MiIdOxOFYrPL9n KLLziFCoPT8uxoYnM2ayRx Quoj3cJDEbejPtoV99GCIk NSBjbSBpbiBkaWFtZXRlci P0pRH0RPGexnWsvQ6gEEZw Z94yzS96zxIbqQ60plWxe3 Vae08owXE0OR4jOwSpc82h VtIdBYpyqIF6YZYcBPxaJD 4oAXRjlnGrbdZ8hP7appEz hxQcE6Twr0GitYZoWVNmwE kxsNRwNoMLEFE2hW7ycbY7 byBpbmNsdWRlIHRoZSBlbi ApRTAxNCUak8UfxEktnyLm QQQokA3rLWuxe8RjISHyiZ UpLCByZXByZXNlbnRhdGl2 ZYKbtl3akt2cIVO7oD8xLO LkxlHjFshfATY0CQFciCab EWOdKMTrxBIwkGA8NUJzuU 1oNNTnWVhnsZiegO6yYIDp R05ze4ACg8KbCHQqHXoqh6 moyKokh6EslMLgMUbmCTYo qUAjRHqtlW8kQfRin4advR z9LRsoabQ2BYXizc2CCgia LpmrxJfjo0OarYItSXocLI EwGPPsHDamTGGxOM1ZBoPw JYK1ZQkuFPmuMHb3EFj3KN 4NVgMvOEZfBGiwAEv9CMHs HDu3MLhtAD8UDWO2PyG4VY G9DDMvLQToYobeEPy9ODZq XFxmIEFyaWFsIFxcZnMgMT FkHMcjsNKwIM2gzUsekmTt IFNQRUNJTUVOIEJccGFyIA 8UJKMiFBkfCUPkwJNFNJO4 HX5kJIYTAvankFHaJQKklB rdSEpfoQ9nHK9RRDe4mvDr ECAqAaUdY6AxW7vsAL2mAg BpcyByZWNlaXZlZCBpbiBm e0TmVBqoalOkOUUdyRGpCI dpdGggdGhlIHBhdGllbnQn tfFcHF7yOMRJPFFtjB7gDX NuMwVtpEeupIOwjig3mG6o eSTzLFMdjBXlw5VxDyflBL 3sMNXavsJyn2JsZA6pRRRy aBDsWFTnoguna4EoJ5FaXV Hse71hmQH9cAUalKFtGvFf J77ecmPeIPIsWWX9DKTqQY K3GIShSaOuuCzcw0kaZ9fj iPMhk6UyzXFezTrsq2UgzF lvbmVkIHRvIHJldmVhbCB0 RI2mrTodxaFwMQ3bvbFjq9 WkSIX5eXLlnMMiGDWasc6o UIEsbRHnl0LxkNF7oABdUL YaZ1Dbx85eGKTcRKEwnHIs cKD7FRVdeS0iRnHxWDLkmy FRYpyiUXPxWVjGCII0JDLp amVzdGthLCBQQSAoQVNDUC kNClxwbGFpblxlcGljTmVz pWCtEmHquAkutI69OXPqzZ DmUWM4MA2fTSQhgvciYJQq ESWjYTS3RGehmJ44nLMoEK VoNBBtcBOudR1TNGPhZFW9 BZxndT13wCSgWY5GZVKiJH I3KNNyjERoCFV2ZA5nlX4H fQ== Disclaimer (test code = c0intVBnZXBgk0wpUZPacD [id number]) [facility] [place]WM[place] DQogykKoTSqqo6ZqB2BzGb AwMFxhbnNpXGRlZmxhbmcx OZRcEUZ2ruYaLKQgJRmfXT FkDJmmYr5utMDmrYteJnTx TPHjn5ejryBMBNpwKvNiT9 77ILDhNZayl8wnz5ViJLIr qZGfh4K9REJCiieubYs0hQ szF95al3K8NzezV9jzBDFw VZWqM3ZxHE3iLARaPja2VW L0ORP9TWRoIAZgP4YhNG6a GNDutYRxBRz0k9dbkMdaZS ChVHY0b8nsLFgdqdEqAZ1k bc8afDp5m8eddyTaEKDdKY WrsPGBAZZbN0ZyzLrrMv9x jRl5kLwfCvwwJFM3Bld0HP 4tst34xis8cNepCCWvnocr ZnI6CAbdVVTvlvdpQAb4SM zeTCGmbWR5SRFpfQIoV4Zx LVYjED4sgsj8IZP3ELrbNT RuLmH3RMIepPNpKZNegHuj BSlhe124QRB4GcXuHW7xO3 Adq0C3rH1jxTWyNRZxcXGi RqDnNGMxeq2hkSBdLOyof3 LoNEJ7aoF0eMJzjZQpZWYg RY87Xmiqy4LySzjra0ZnS9 2vcXP2TIzqd1foPG5dNqM3 itHqWDpgu8ngmG0rCpU6HF eeJR4xIC3lMCBsqN9bkjoi XHBnYnJkcmhlYWRccGdicm PfFl4ixArzZBM4QVtnM7bw tZ3nIhD6EKgvK0sgvW3fPU n0KQcshPD4ROXtcK4sYD4x pgxtb0qoHFmvZTpjIBVagc O9mbW4XVEriALwL6LgjU8o OEGyRZ3vtytdp2emMMS9YW qmKSCfNRZ8NsZdLWBtb4Co xjc8XwHos3SydTYvISzqJ6 1kb311JBBpsrIxC6axtCQl swsenJJsyxmeLDsyzaR8PB RqmwGtz4SlNDSqTNW1JAcw XNpepJJsUMKvxKlvj9hkG0 RscGFyXHBsYWluXGYxXGZz MjBcbGFuZzEwMzNcaGljaF bmHYkwVmMpCUUoSYgaY9ny KyGwB6VlQUVyQrTyqLPsH7 ggVGhpcyByZXBvcnQgbWF5 GIrxH0x1ZJMqbuLypQs7an QmZuZiJORrLCJ3LHkcdHKn TFIbw2AmdkbheMLaMh2bfI VbYZMwqN6qWXUjPAUwJEes MB0luMm5MKISrBJybJAoFt CLXOPfPU48ntSqHMTBnmfn j6E2GJwnLGPsb9EypBXwR8 eed0RaMPGmm62cOG6dm3H6 j7vgWAI7YR1ep5CbUZOktF VbcQZxTKWii2Bloyavh9Iu NRHgysKar0CxXHTkqfYmdX XrFPMjvdPlfw3nmnRyPOWv IYYeL2UtzeyuqTqxowDiUX Jfwd5qkdUsHYR5RYWDBGOn SAPoa4VgqQ8pgLPQTPD4iU Owek5ekqXLoBIkFALvzk94 TONzZK2wG6uyWEPpHLWyfy SzoSCte0MyNTHjzDR4pPEc CL1GHtPOn07jQLJlTAXBob EaJRGkpYngyRT2emU1iP2j IChGREEpLlx+IFRoZSBGRE BcHH7lrrFzm6GjllQbnBle DYUzeFVaz3LkeREub1BaeG ypy7HhpCNrvCAoUO5kEKEr clxwYXIgVVRNQiBMYWJvcm C7h9DgMZTvSDQlEAE7vRpy rtj4UZEmvT6hJTOdY8axzb rfCPhhLKXda0UybM2edBWY iGEam9GmrRXhvREItOOuEV 7mhpRoZEkLAMhQIBP2vpSw USDbs5MnZSwvT0vjK75lhJ assBq5mIA3ZVI9pQ4oZoc+ IFxwYXJccGFyIEFwcHJvcH ByGXWwnXvfifFkW8IcwpFa xM8xmJUjfoBmXZ3zSY6nI6 W7aTHxXYYnvvNax4wvFTfb dmUgYmVlbiByZXZpZXdlZC Nsg9YrEXyhESC6OWjqbgNe bmNsdWRpbmcgSCZFLCBTcG EwvZRgKXL4JZgwroIdafNw TU0zqP1mgEdslD1cbTYnsJ O2rqagIGIgIPMttDmoTRFk XU8awOEgZXKlxyMMoXtlkX DymO2uK8UyYYMeFLGpwt5d GWUmaD1tXCvfs2XmccqfTP XmGTQuDHDxwzWaza4cNAPy yBPSXP4WZAbnuPEnf2Fpjv UrZ8aLWJI3KJLtLyKaMxks VSDgvGVghBLpGWGumy12HO YzsK5wwRjkKLTtkP8pdC1g qWmoiQ7hNgYjZfPlKOpeAD 9tORCaV4fdoDZdRGDkYTHi I4pqLuNnrQ2quVryKCioKg HeOpGoWNdgMIX7uW== Embedded Images (test code = 8299743092) General acute hospital BranchType and Screen - This is a pre-surgical type and screen. ONCE [id number] 17:52:02 Test Item Value Reference Range Interpretation Comments ABO & RH (test AB POSITIVE Performed at [facility] code = 20) [facility] Blood Bank3 [address] [facility] s [address] Free: [phone] A No. [id number] IAT (test code = Negative Performed a t [facility] 1185) [facility] Blood [facility]3 [address] [facility] s [address] Free: [phone] A No. [id number] [facility]:13[facility]17 Test Item Value Reference Range Interpretation Comments PALB (test code = 12244-6) 20.2 mg/dL 18.0-45.0 Lab Interpretation (test code = Normal 75883-0) [facility]84706[facility] (ALB,T.PRO,BILI T,BU/BC,ALT,AST,ALK PHOS)2022-02-04 23:05:58 Test Item Value Reference Range Interpretation Comments TOTAL BILI (test code = 8309806098) 0.4 mg/dL 0.1-1.1 BILI UNCON (test code = 7227661204) 0.2 mg/dL 0.1-1.1 BILI CONJ (test code = 6812325213) 0.0 mg/dL 0.0-0.3 T PROTEIN (test code = 1662930214) 7.7 g/dL 6.3-8.2 ALBUMIN (test code = 7265583025) 3.4 g/dL 3.5-5.0 L ALK PHOS (test code = 7239440901) 65 U/L 34-122 ALTv (test code = 1742-6) 11 U/L 5-50 AST(SGOT) (test code = 4961250109) 23 U/L 13-40 Lab Interpretation (test code = Abnormal 05351-3) [facility] [id number] 03:38:00 Test Item Value Reference Range Interpretation Comments AB HEPATITIS A IGM NEGATIVE (test code = HAVMAB) AG HEPATITIS B NEGATIVE SCREEN NEGATIVE SURFACE (test code = HBSAG) AB HEPATITIS B CORE NEGATIVE IGM (test code = HBCMAB) AB HEPATITIS C (test <0.1 RATIO <0.8 S/C RAT ION 0.0 - code = HCVAB) 0.9 NEGATIVE <0.8INDETERMINA TE 0.8 - 0.9POSITI VE >0.9 [id number] 16:06:00 Test Item Value Reference Range Interpretation Comments SURG (test code = SURG) RUN DATE: 10/07/20 [facility] PAGE 1 RUN TIME: 1607 Specimen Inquiry RUN USER: INTERFACE PATIENT: TAHIR SANCHES JR LOC: WINTER U #: [id number] AGE/SX: 35/M ROOM: WINTER RE10/06/20[facility] DR: Sreekanth Garcia MD : 84 BED: 3 DIS: STATUS: ADM Arcadio TLOC: SPEC #: [facility]:[id number] RECD: 10/06/20 STATUS: ELZA CHURCHILL #: [id number] MIRIAM: 10/06/20 [facility] DR: Sreekanth Garcia MD ENTERED: 10/06/20 SP TYPE: SURG OTHR DR: DOES_NOT KNOW No Primary or Family Physician Juan Mcbride MD, Jignesh P MDORDERED: SURG PATH LVL 4 COPIES TO: DOES_NOT KNOW No Primary [place] [id number] [place] [address] [email or web address] [place] [address] [place] [address] Arnulfo Cormier MD [address] [place] [address] HISTOLOGY: TISSUE ID BLK PCS KANWLA LEV PROCEDURE DISPOSITION ____ ___ ___ ___ ESOPHAGUS, NOS A 1 2 PROCEDURES: SURG PATH LVL 4 (10/06/20) TISSUES: A. ESOPHAGUS, NOS - ESOPHAGUS BIOPSY CLINICAL HISTORY ESOPHAGEAL FOOD BOLUS, STRICTURE V DYSMOTILITY CONTINUED ON NEXT PAGE RUN DATE: 10/07/20 [facility] PAGE 2 RUN TIME: 1607 Specimen Inquiry RUN USER: INTERFACE SPEC #: [facility]:[id number] PATIENT: TAHIR SANCHES JR #[id number] (Continued) CPT CODES CPT CODE(S): 49617 , , , , , , FINAL DIAGNOSIS Esophagus, biopsy: ACUTE ESOPHAGITIS WITH CANDIDIASIS NEGATIVE FOR INTESTINAL METAPLASIA, DYSPLASIA, OR MALIGNANCY GROSS DESCRIPTION Esophagus biopsy. Received in formalin are multiple minute fragments of suarez soft tissue, 0.1 - 0.3 cm. The specimen is filtered in a teabag and entirely submitted as A. ba/nr Grossing performed at [facility] Pathology, [address] [place] [address], [address], [place] [address]. Top Lift Compressor: Abner Steward M.D. MICROSCOPIC DESCRIPTION Esophagus biopsy. [...] indicativ e of the presence code = HJLGO03XL) ofSARS-CoV -2 RNA, clinical correlation wit h [...] inations, antiviraltherap eutics, antibiotics, chemotherapeuti c orimmunosuppres juilus drugs have not been e valuated for [...] indicativ e of the presence code = XAFWM94MJ) ofSARS-CoV -2 RNA, clinical correlation wit h [...] for the identification of SARS-CoV-2 RNA usingthe [facility] M2000 Sy stem under the FDA Emergen cy UseAuthorizatio n. The testing is perf ormed by personneltraine d in the procedures for the [facility] M2000 molecular diagnostic SARS-CoV-2 assa y in vitro. CBC W/AUTO [id number] 13:10:00 Test Item Value Reference Range Interpretation [...] NT WITH AUTO DIFFERENTI AL. CBC W/AUTO [id number] 13:10:00 Test Item Value Reference Range Interpretation [...] CONSISTA NT WITH AUTO DIFFERENTI AL. RBC [id number] 13:10:00 Test Item Value Reference Range Interpretation Comments PLATELET ESTIMATE DECREASED THOUSAND ADEQUATE PLAT ELET COUNT (test code = REVIEWED AND PLTEST) VERIFIED. PLATELET MORPHOLOGY NORMAL (test code = PLTMORPH) CBC W/AUTO [id number] 13:10:00 Test Item Value Reference Range Interpretation [...] NT WITH AUTO DIFFERENTI AL. COMPREHENSIVE METABOLIC [id number] 11:48:00 Test Item Value Reference Range Interpretation [...] TOTAL (test code = ALKP) CBC W/AUTO [id number] 11:33:00 Test Item Value Reference Range Interpretation [...] REQUIRED (test code = DIFF/SCN CRITERIA MDIFF) [id number] 04:59:00 Test Item Value Reference Range Interpretation Comments AMMONIA (test code = AMM) 56 mcMOL/L 11-32 H LACTIC [id number] 04:59:00 Test Item Value Reference Range Interpretation Comments LACTIC ACID (test code = LACT) 0.7 mmol/L 0.4-2.0 N GLUCOSE BEDSIDE [id number] 20:35:00 Test Item Value Reference Range Interpretation Comments GLUCOSE BEDSIDE TESTING (test code 109 mg/dL 70-110 N = GLUBED) GLUCOSE BEDSIDE [id number] 17:10:00 Test Item Value Reference Range Interpretation Comments GLUCOSE BEDSIDE TESTING (test code 105 mg/dL 70-110 N = GLUBED) - US ABDOMEN [id number] 16:39:00 [facility] 1985 Sex: M Name:TAHIR SANCHES JR [facility] : 1985 Age/S: 35 / M [address] [address] [place] Unit #: [id number] Loc: [place] [address] Phys: Matilda Kirk PA-C Acct: [id number] Dis Date: Status: ADM IN PHONE #: [phone] Exam Date: 10/06/2020 7146 FAX #: Reason: elevated lfts, evaluate for cirrhosis EXAMS: CPT: [id number] ABDOMEN LTD 86774 RIGHT UPPER QUADRANT ULTRASOUND. CLINICAL HISTORY: Elevated liver f unction tests, evaluate for cirrhosis COMPARISON: CT chest [...] upper abdomen. 2. Mild right renal pelviectasis. 3. Mild distention of the gallbladder. No gallstones are identified. Location Code: R16 at 1639 Reported and signed by: Eh Barajas M.D. PAGE 1 Signed Report (CONTINUED) Name: TAHIR SANCHES JR : 1985 Age/S: 35 / M [address] [address] [place] Unit #: [id number] Loc: [place] [address] Phys: Matilda Kirk PA-C Acct: [id number] Dis Date: Status: ADM IN PHONE #: [phone] Exam Date: 10/06/2020 1515 FAX #: Reason: elevated lfts, evaluate for cirrhosis EXAMS: CPT: [id number] US ABDOMEN LTD 75459 (Continued) CC: Sreekanth Garcia MD; Matilda Kirk Technologist: Rae Eaton [facility] Date/Time: 10/06/2020 (1639) [id number] 2 Signed Report Name: TAHIR SANCHES JR : 1985 Age/S: 35 / M [address] [address] [place] Unit #: [id number] Loc: [place] [address] Phys: Matilda Kirk PA-C Acct: [id number] Dis Date:Status: ADM IN PHONE #: [phone] Exam Date: 10/06/2020 1515 FAX #: Reason: elevated lfts, evaluate for cirrhosis EXAMS: CPT: [id number] US ABDOMEN LTD 85858 (Continued) Orig Print D/T: S: 10/06/2020(1643) Probe: PAGE 3 Signed ReportUA RFLX MICR CULT IF [id number] 15:23:00 Test Item Value Reference Range Interpretation [...] 92 mg/dL 70-110 N GLUBED) GLUCOSE BEDSIDE [id number] 13:37:00 Test Item Value Reference Range Interpretation Comments GLUCOSE BEDSIDE TESTING (test code = 58 mg/dL 70-110 L GLUBED) CREATINE KINASE (CK)2020-10-06 11:26:00 Test Item Value Reference Range Interpretation Comments CREATINE KINASE (CK) (test code = 287 Unit/L 26-192 H CK) [id number] 11:26:00 Test Item Value Reference Range Interpretation Comments AMYLASE (test code = JOSE CARLOS) 120 Unit/L 25-115 H [id number] 11:26:00 Test Item Value Reference Range Interpretation Comments LIPASE (test code = LIP) 112 Unit/L 114-286 L CBC W/AUTO [id number] 09:58:00 Test Item Value Reference Range Interpretation [...] DIFF/SCN CRITERIA (test code = MDIFF) WBC [id number] 09:58:00 Test Item Value Reference Range Interpretation [...] NORMAL (test code = PLTMORPH) CBC W/AUTO [id number] 09:55:00 Test Item Value Reference Range Interpretation [...] DIFF/SCN CRITERIA (test code = MDIFF) WBC [id number] 09:55:00 Test Item Value Reference Range Interpretation Comments SEGMENTED NEUTROPHILS (test code = SEG) % 40-75 LYMPHOCYTE (test code = LYMPH) % 12.6-43.5 CBC W/AUTO [id number] 09:55:00 Test Item Value Reference Range Interpretation [...] DIFF/SCN CRITERIA (test code = MDIFF) WBC [id number] 09:55:00 Test Item Value Reference Range Interpretation Comments SEGMENTED NEUTROPHILS (test code = SEG) % 40-75 LYMPHOCYTE (test code = LYMPH) % 12.6-43.5 COMPREHENSIVE METABOLIC [id number] 09:14:00 Test Item Value Reference Range Interpretation [...] TOTAL (test code = ALKP) CBC W/AUTO [id number] 09:02:00 Test Item Value Reference Range Interpretation [...] CRITERIA (test code = MDIFF) GLUCOSE BEDSIDE [id number] 06:41:00 Test Item Value Reference Range Interpretation Comments GLUCOSE BEDSIDE TESTING (test code = 65 mg/dL 70-110 L GLUBED) COVID 19 INHOUSE [id number] 05:40:00 Test Item Value Reference Range Interpretation Comments COVID 19 INHOUSE AG NEGATIVE Negative Per manu facturer, (test code = negative result s should [id number]) be treated aspr esumptive and, if inconsi [...] co nsistent with COVID-19. - CT CHEST [id number] 03:30:00 [facility] 1985 Sex: M Name: SANCHES JRTAHIR : 1985 Age/S: 35 / M [address] [facility] Unit #: [id number]: [place] [address] Phys: Scott Person MD Acct: [id number] Dis Date: Status: REG ER PHONE #: [phone] Exam Date: 10/06/2020 024 FAX #: Reason: possible esophageal pneumatosis EXAMS: CPT: [id number] CT CHEST W/CONTRAST 01159 DICTATION LOCATION: H48 HISTORY: Male, 35 years [...] or pneumomediastinum. No discrete esophageal mass lesion. Thereis tapered esophageal narrowing at the gastroesophageal junction. [...] disorder PAGE 1 Signed Report (CONTINUED) Name: TAHIR SANCHES JR : 1985 Age/S: 35 / M [address] [address] [place] Unit #: [id number] Loc: [place] [address] Phys: Scott Person MD Acct: [id number] Dis Date: Status: REG ER PHONE #: [phone] Exam Date: 10/06/2020 0245 FAX #: Reason: possible esophageal pneumatosis EXAMS: CPT: [id number] CT CHEST W/CONTRAST 00242 (Continued) (i.e. scleroderma or dermatomyositis). Infiltrative neoplasm is included differential but I do not identify a distinct mass. 2. No evidence for esophageal pneumatosis or pneumomediastinum. 3. Multi lobar groundglass interstitial pneumonia. Commonly reported imaging features of COVID- 19 pneumonia are present. Other processes such as aspiration pneumonia, influenza pneumonia and organizing pneumonia, as seen with drug toxicity and connective tissue disease, can cause a similar imaging pattern. Elec tronically Signed by Alyx Ma MD on 10/06/2020 at 0330 Reported and signed by: Alyx Ma MD CC: Technologist:Valentine Momin, RT(R)(CT); CTDI: DLP: Trnscb Date/Time: 10/06/2020 (329)tRAJNI Orig Print D/T: S: 10/06/2020 (033) PAGE 2 Signed Report- CT NECK W/[id number] 03:11:00 [facility] : 1985 Sex: M Name:TAHIR SANCHES JR [facility] : 1985 Age/S: 35 / M [address] [address] [place] Unit #: [id number] Loc: [place] [address] Phys: Scott Person MD Acct: [id number] Dis Date: Status: REG ER PHONE #:[phone] Exam Date: 10/06/2020 0250 FAX #: Reason: possible esophageal pneumatosis EXAMS: CPT: [id number] CT NECK W/CONTRAST 32820 EXAM: - CT NECK W/CONTRAST LOCATION: H57 [...] M.D. PAGE 1 Signed Report (CONTINUED) Name: TAHIR SANCHES JR [place] : 1985 Age/S: 35 / M [address] [facility] Unit #: [id number] Loc: [place] [address] Phys: Scott Person MD Acct: [id number] Dis Date: Status: REG ER PHONE #: [phone] Exam Date: 10/06/2020 025 FAX #: Reason: possible esophageal pneumatosis EXAMS: CPT: [id number] CT NECK W/CONTRAST 33421 (Continued) CC: Technologist:Valentine Momin, RT(R)(CT); CTDI: DLP: Trnscb Date/Time: 10/06/2020 (310) [email or web address] Orig Print D/T: S: 10/06/2020 (4522) PAGE 2 Signed ReportBASIC METABOLIC [id number] 02:14:00 Test Item Value Reference Range Interpretation [...]
--- NOTE | 2022-06-15 09:18 | RAD REPORT ---
EXAM DESCRIPTION: RAD - ENTEROSTOMY TUBE CHECK W/CONTR - 06/15/2022 9:11 am CLINICAL HISTORY: ABD PAIN COMPARISON: Abdomen Pelvis Wo Contrast dated 01/27/2022 FINDINGS/IMPRESSION: Gastrostomy tube overlies the epigastric region. Following injection of enteric contrast, contrast can be seen within the small bowel which would indicate an intraluminal positioni ng of the G-tube. No bowel obstruction.
--- NOTE | 2022-06-15 09:39 | ER ---
Nurse's Notes [facility] Name: Tahir Ag Jr Age: 37 yrs Sex: Male : 1985 Arrival Date: 06/15/2022 Time: 08:09 Bed 18 Private MD: Diagnosis: Encounter for attention to gastrostomy Presentation: 06/15 08:09 Chief complaint: EMS states: Pt reporting that G tub has been leaking for 2 days. Ems 6 advised that stop valve was open and was no longer leaking after. Coronavirus screen: Vaccine status: Patient reports receiving the 1st dose of the Covid vaccine. Ebola Screen: Patient negative for fever greater than or equal to 101.5 degrees Fahrenheit, and additional compatible Ebola Virus Disease symptoms Patient denies exposure to infectious person. Patient denies travel to an Ebola-affected area in the 21 days before illness onset. Initial Sepsis Screen: Does the patient meet any 2 criteria? No. Patient's initial sepsis screen is negative. Does the patient have a suspected source of infection? No. Patient's initial sepsis screen is negative. Risk Assessment: Do you want to hurt yourself or someone else? Patient reports no desire to harm self or others. Onset of symptoms was June 12, 2022. 08:09 Method Of Arrival: EMS: [facility] 08:09 Acuity: MARTINA 4 jh6 Triage Assessment: 08:15 General: Appears unkempt, emaciated, malnourished, Behavior is calm, cooperative. Pain: jh6 Complains of pain in epigastric area. Historical: - Allergies: 08:30 No Known Allergies; em6 - PMHx: 08:15 achalasia; Bipolar disorder; Diabetes - NIDDM; Hernia; Hypertension; Schizophrenia; jh6 Seizure; - PSHx: 08:15 gastrostomy tube; jh6 - Immunization history:: Adult Immunizations unknown. - Social history:: Smoking status: Patient reports the use of cigarette tobacco products, denies chronic smoking, but will smoke occasionally. Screenin:28 Abuse screen: Denies threats or abuse. Nutritional screening: malnourish on inspection em6 . Tuberculosis screening: No symptoms or risk factors identified. Fall Risk None identified. Assessment: 08:21 General: Appears in no apparent distress. comfortable, unkempt, malnourished, Behavior em6 is calm, cooperative. Pain: Complains of pain in abdomen Pain does not radiate. Pain currently is 10 out of 10 on a pain scale. Quality of pain is described as aching. Neuro: Costa Agitation-Sedation Scale (RASS): 0 - Alert and Calm Level of Consciousness is awake, alert, obeys commands, Oriented to person, place, time, situation. Cardiovascular: Patient's skin is warm and dry. Respiratory: Airway is patent Respiratory effort is even, unlabored, Respiratory pattern is regular, symmetrical, Breath sounds are clear bilaterally. GI: PEG tube in place, Site reddened. Bowel sounds hypoactive in right upper quadrant, left upper quadrant, right lower quadrant and left lower quadrant Abd is soft and non tender X 4 quads. Reports upper abdominal pain, nausea. : No signs and/or symptoms were reported regarding the genitourinary system. EENT: No signs and/or symptoms were reported regarding the EENT system. Derm: No signs and/or symptoms reported regarding the dermatologic system. Musculoskeletal: No signs and/or symptoms reported regarding the musculoskeletal system. 09:20 Reassessment: No changes from previously documented assessment. Patient and/or family em6 updated on plan of care and expected duration. Pain level reassessed. Vital Signs: 08:09 BP 90 / 52; Pulse 53; Resp 16; Pulse Ox 100% ; Weight 40.82 kg; Height 5 ft. 5 in. [facility] (165.10 cm); Pain 5/10; 09:30 BP 89 / 65; Pulse 52; Resp 12; Pulse Ox 100% ; em6 08:09 Body Mass Index 14.98 (40.82 kg, 165.10 cm) [facility] ED Course: 08:09 Patient arrived in ED. [facility] 08:09 Kilo Reed, RN is Primary Nurse. jd3 08:15 Triage completed. [facility] 08:26 Teo Alvares PA is PHCP. [facility] 08:26 Amanuel Ferrer MD is Attending Physician. [facility] 08:29 Arm band placed on. em6 08:29 Patient has correct armband on for positive identification. Bed in low position. Call 6 light in reach. Side rails up X 1. Warm blanket given. 09:13 PEG Tube Check w/contrast In Process Unspecified. EDMS 09:50 No provider procedures requiring assistance completed. Patient did not have IV access em6 during this emergency room visit. Administered Medications: No medications were administered Medication: 08:30 VIS not applicable for this client. em6 Outcome: 09:39 Discharge ordered by . terell 09:50 Discharged to home ambulatory. em6 09:50 Condition: stable 09:50 Discharge instructions given to patient, Instructed on discharge instructions, follow up and referral plans. peg tube care Demonstrated understanding of instructions, follow-up care, peg tube care 09:51 Patient left the ED. em6 Signatures: Dispatcher [employer] EDMS Teo Alvares PA PA jmm Davies, Jonathon, RN RN jd3 Kandace Hernandez RN RN jh6 Sol Bell RN RN em6
--- NOTE | 2022-06-15 09:39 | EDPHYS ---
Physician Documentation [facility] Name: Tahir Ag Jr Age: 37 yrs Sex: Male : 1985 Arrival Date: 06/15/2022 Time: 08:09 Bed 18 Private MD: ED Physician Amanuel Ferrer HPI: 06/15 08:39 This is a 37 year old male with a history of achalasia, bipolar, htn that presents to [facility] the ED with complaints of a leaking peg tube. Patient also complaining of abdominal pain which is chronic. Denies fever, vomiting, diarrhea. . Historical: - Allergies: 08:30 No Known Allergies; em6 - PMHx: 08:15 achalasia; Bipolar disorder; Diabetes - NIDDM; Hernia; Hypertension; Schizophrenia; jh6 Seizure; - PSHx: 08:15 gastrostomy tube; jh6 - Immunization history:: Adult Immunizations unknown. - Social history:: Smoking status: Patient reports the use of cigarette tobacco products, denies chronic smoking, but will smoke occasionally. ROS: 08:39 Constitutional: Negative for fever, chills, and weight loss, Cardiovascular: Negative [facility] for chest pain, palpitations, and edema, Respiratory: Negative for shortness of breath, cough, wheezing, and pleuritic chest pain. 08:39 Abdomen/GI: Positive for abdominal pain. 08:39 All other systems are negative. Exam: 08:39 Head/Face: atraumatic. Eyes: EOMI, no conjunctival erythema appreciated ENT: Moist jmm Mucus Membranes Neck: Trachea midline, Supple Chest/axilla: Normal chest wall appearance and motion. Cardiovascular: Regular rate and rhythm. No edema appreciated Respiratory: Normal respirations, no respiratory distress appreciated 08:39 Back: Normal ROM Skin: General appearance color normal MS/ Extremity: Moves all extremities, no obvious deformities appreciated, no edema noted to the lower extremities Neuro: Awake and alert Psych: Behavior is normal, Mood is normal, Patient is cooperative and pleasant 08:39 Constitutional: The patient appears alert, awake, cachectic 08:39 Abdomen/GI: peg tube noted, no surrounding erythema, no purulent drainage appreciated. Vital Signs: 08:09 BP 90 / 52; Pulse 53; Resp 16; Pulse Ox 100% ; Weight 40.82 kg; Height 5 ft. 5 in. jh6 (165.10 cm); Pain 5/10; 09:30 BP 89 / 65; Pulse 52; Resp 12; Pulse Ox 100% ; em6 08:09 Body Mass Index 14.98 (40.82 kg, 165.10 cm) [facility] MDM: 08:37 Patient medically screened. [facility] 09:38 Data reviewed: vital signs, nurses notes. Counseling: I had a detailed discussion with [facility] the patient and/or guardian regarding: the historical points, exam findings, and any diagnostic results supporting the discharge/admit diagnosis, radiology results, the need for outpatient follow up, to return to the emergency department if symptoms worsen or persist or if there are any questions or concerns that arise at home. 06/15 08:38 Order name: PEG Tube Check w/contrast; Complete Time: 09:20 [facility] Administered Medications: No medications were administered Disposition: 10:10 Co-signature as Attending Physician, Amanuel Ferrer MD I agree with the assessment and kdr plan of care. Disposition Summary: 06/15/22 09:39 Discharge Ordered Location: Home [facility] Condition: Stable [facility] Diagnosis - Encounter for attention to gastrostomy [facility] Followup: [facility] - With: Private Physician - When: 2 - 3 days - Reason: Recheck today's complaints, Continuance of care, Re-evaluation by your physician Discharge Instructions: - Discharge Summary Sheet [facility] - Gastrostomy Tube Home Guide, Adult [facility] Forms: - Medication Reconciliation Form [facility] - Thank You Letter [facility] - Antibiotic Education [facility] - Prescription Opioid Use [facility] Signatures: Dispatcher [employer] EDAmanuel Zamora MD MD kdr Mickail, Joel, PA PA [facility] Kandace Hernandez, RN RN 6 Sol Bell RN RN 6
[2022-06-15 09:58] VITALS: O2SAT 100
[2022-06-15 09:59] VITALS: BP 89/65
== END 2022-06-15 09:51 | disposition home or self-care (01) ==
LOC: ER 08:05
DX: Z43.1 Encounter for attention to gastrostomy (principal); R10.9 Unspecified abdominal pain; F31.9 Bipolar disorder, unspecified; F17.210 Nicotine dependence, cigarettes, uncomplicated
CPT/HCPCS: 49465

== ENCOUNTER 2022-06-19 10:32 | Emergency (ER) | payer OTHER ==
--- OUTSIDE RECORDS SUMMARY | 2022-06-19 10:40 | XMS REPORT | Continuity of Care Document ---
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 FUNCTION PANEL (94733) 2022-02-04 Liv Boucher niversity of (ALB,T.PRO,BILI 20:11:00 [facility],BU/BC,ALT,AST,ALK PHOS) Branch PREALBUMIN, SERUM 2022-02-04 Liv Boucher [facility] 20:11:00 [facility] Plan of Care Planned Activity Planned Date Details Comments Source Future Scheduled Test 2022-07-24 00:00:00 IMM Influenza [facility] Seasonal (>/= 19 yrs) [code = IMM Influenza Seasonal (>/= 19 yrs)] Future Scheduled Test 2021-07-24 00:00:00 [facility] Influenza [facility] Seasonal Jul to December (>/= 19 yrs) [code = IMM Influenza Seasonal Oct to December (>/= 19 yrs)] Future Scheduled Test 1996 00:00:00 COVID-19 Vaccine (1) [facility] [code = COVID-19 Vaccine (1)] Future Scheduled Test 1984 00:00:00 COVID-19 Vaccine (#1) [facility] [code = COVID-19 Vaccine (#1)] Future Scheduled Test 1984 00:00:00 Fluoride Varnish [facility] [code = Fluoride Varnish] Encounters Start End Encounter Admission Attending Care Care Encounter Source Date/Time Date/Time Type Type Clinicians Facility Department ID 2022-05-18 Outpatient [facility] [id number] [place] 14:53:18 [id number] [facility] 2022-01-18 Outpatient [facility] [id number] [place] 04:45:38 [id number] Health 2020-10-06 Inpatient HCAPM JOSE [id number] [facility] 00:50:00 [id number] [facility] 2022-08-10 2022-08-10 Outpatient [facility] [id number] Univers 09:00:00 09:00:00 [id number] ity of [facility] 2022-07-12 2022-07-12 Outpatient R [facility] [id number] Univers 13:30:00 13:30:00 [id number] ity of [facility] 2022-06-04 2022-06-04 Telephone Jefry YARELI 1.2.840.114 [id number] Univers 00:00:00 00:00:00 Williams Myrick [facility] 350.1.13.10 ity of CLINICS [place] [id number] [place] [id number] Branch 2022-05-26 2022-05-26 Emergency X ISAEL [facility] ERT [id number] Univers 19:02:00 22:40:00 CIDNY ity of [facility] 2022-05-26 2022-05-26 Emergency Janene Taylor Misa [facility] 1.2.840. 114 [id number] Univers 19:02:00 22:40:00 Cindy Akins TRAVER 350.1.13.10 ity of [place] 4.2.7.2.686 [facility] [id number] [facility] 084 Branch 2022-05-05 2022-05-05 Transition SHARON Araujo 1.2.840.114 [id number] Univers 00:00:00 00:00:00 of Care Henrietta WILSON 350.1.13.10 [place] [id number] [facility] 403 Branch 2022-04-26 2022-05-04 Inpatient X AMELIE FERNANDEZ [facility] [id number] Univers 16:01:00 12:18:00 AMELIE FERNANDEZ ity of [facility] 2022-04-26 2022-05-04 [facility] Charlotte Miranda [facility] 1.2.840.11 4 [id number] Univers 16:01:00 12:18:00 Encounter Daniel Parker [facility] 350.1. 13.10 ity of [place] 4.2.7.2.686 [place] Amelie Fernandez [facility] [id number] [address] ([facility]) 2022-04-282022-04-28 Anesthesia Gayle Linoi 1.2.840.1 1 [id number] Univers 09:38:00 10:28:00 Event Radu Schroeder 78074.1.1 ity of 3.104.2.7 [place] .3.318325 Medica l .8 Branch 2022-04-28 2022-04-28 Surgery Eber [facility] 1.2.840.114 [id number] Univers 09:30:00 10:01:00 Derrell SPECIALTY 350.1.13.10 ity of CARE 4.2.7.2.686 [facility] AT [id number] Ar dicks [place] 020 [facility] 2022-04-27 2022-04-27 Anesthesia Fawn Johnson 1.2.840.1 [id number] Univers 12:29:50 12:29:50 Event Sabrina Sanchez 59671.1.1 ity of 3.104.2.7 [place] .3.435595 Medica l .8 Branch 2022-04-26 2022-04-26 Travel 1.2.840.1 1.2.477.511 [id number] Univers 00:00:00 00:00:00 89666.1.1 350.1.13.10 ity of 3.104.2.7 4.[place].7.3.698 [place] .3.996923 084.8 Medica l .8 [place] 2022-04-05 2022-04-05 Telephone Mitchell, 1.2.840.7 [id number] Univers 00:00:00 00:00:00 Mitzy 51790.1.1 ity of 3.104.2.7 [place] .3.382597 Medica l .8 [place] 2022-04-02 2022-04-02 Office [place] 1.2.840.7 [id number] [facility] 11:45:00 11:45:00 Visit Negrito 97611.1.1 ity of [place] 3.104.2.7 [place] .3.431233 Medica l .8 Branch 2022-04-02 2022-04-02 Travel 1.2.840.1 1.2.492.084 [id number] Univers 00:00:00 00:00:00 92641.1.1 350.1.13.10 ity of 3.104.2.7 4.[place].7.3.698 [place] .3.102323 084.8 Medica l .8 [place] 2022-03-24 2022-03-24 Telephone Kamlesh, Gal 1.2.840.3 [id number] Univers 00:00:00 00:00:00 08224.1.1 ity of 3.104.2.7 [place] .3.333797 Medica l .8 [place] 2022-03-19 2022-03-19 Telephone Kamlesh, Gal 1.2.840.4 [id number] Univers 00:00:00 00:00:00 46047.1.1 ity of 3.104.2.7 [place] .3.188002 Medica l .8 [place] 2022-03-12 2022-03-12 Hospital [place], 1.2.840.1 [id number] Univers 08:13:00 16:20:00 Encounter Negrito 14928.1.1 it y of [place] 3.104.2.7 [place] .3.389368 Medica l .8 [place] 2022-03-12 2022-03-12 Anesthesia Carley Fregoso 1.2.840.1 [id number] Univers 09:44:00 12:14:00 Event Richard Granados 00669.1.1 ity of 3.104.2.7 [place] .3.323028 Medica l .8 [place] 2022-03-12 2022-03-12 Surgery [place] 1.2.840.9 [id number] Univers 09:54:00 12:12:00 Negrito 13629.1.1 ity of [place] 3.104.2.7 [place] .3.752830 Medica l .8 [place] 2022-03-09 2022-03-09 Laboratory Negrito Simeon 1.2.840.9 [id number] Univers 10:15:00 10:30:00 Only Only, Adc Test 86021.1.1 ity of 3.104.2.7 [place] .3.036512 Medica l .8 Branch 2022-03-09 2022-03-09 Travel 1.2.840.1 1.2.044.037 [id number] Univers 00:00:00 00:00:00 38566.1.1 350.1.13.10 ity of 3.104.2.7 4.2.7.3.698 [place] .3.262180 084.8 Medica l .8 [place] 2022-03-05 2022-03-05 Office Walker, 1.2.840.4 [id number] Univers 10:15:00 12:01:28 Visit Negrito 39691.1.1 ity of [place] 3.104.2.7 [place] .3.535486 Medica l .8 [place] 2022-02-25 2022-02-25 Hospital [facility] 1.2.840.6 [id number] Univers 08:04:00 13:21:00 Encounter 72862.1.1 it y of 3.104.2.7 [place] .3.211172 Medica l .8 Branch 2022-02-25 2022-02-25 Surgery [facility] 1.2.840.0 [id number] Univers 09:35:00 12:45:00 35720.1.1 ity of 3.104.2.7 [place] .3.567133 Medica l .8 [place] 2022-02-25 2022-02-25 Anesthesia Yung Arita 1.2.840.1 005 [id number] Univers 11:53:00 12:33:00 Event Francis Wong 24354.1.1 ity of 3.104.2.7 [place] .3.392745 Medica l .8 Branch 2022-02-24 2022-02-24 Travel 1.2.840.1 1.2.862.052 [id number] Univers 00:00:00 00:00:00 46913.1.1 350.1.13.10 ity of 3.104.2.7 4.2.7.3.698 [place] .3.773075 084.8 Medica l .8 [place] 2022-02-18 2022-02-18 Orders Doctor 1.2.840.9 [id number] Univers 00:00:00 00:00:00 Only Unassigned, 78650.1.1 ity of [place] 3.104.2.7 [place] .3.934153 Medica l .8 [place] 2022-02-15 2022-02-15 [facility], 1.2.840.9 [id number] Univers 00:00:00 00:00:00 Stephanie Rose 84575.1.1 it y of 3.104.2.7 [place] .3.690883 Medica l .8 [place] 2022-02-09 2022-02-09 [facility], 1.2.840.7 [id number] Univers 00:00:00 00:00:00 Stephanie Rose 09543.1.1 it y of 3.104.2.7 [place] .3.069086 Medica l .8 [place] 2022-02-08 2022-02-08 [facility], 1.2.840.7 [id number] Univers 00:00:00 00:00:00 Management Stephanie Rose 86742.1.1 ity of 3.104.2.7 [place] .3.534958 Medica l .8 [place] 2022-02-04 2022-02-04 Hospital Kamlesh, Gal 1.2.840.6 [id number] Univers 15:17:56 23:59:00 Encounter 29900.1.1 it y of 3.104.2.7 [place] .3.941838 Medica l .8 [place] 2022-02-04 2022-02-04 Associate Account Executive Kamlesh, Gal 1.2.840.3 [id number] Univers 15:30:00 15:47:42 Visit [facility] 79720.1.1 ity of 3.104.2.7 [place] .3.572794 Medica l .8 Branch 2022-02-04 2022-02-04 Office Nathanael Whitlock 1.2.840.0 [id number] [facility] 13:30:00 14:38:59 Visit 23380.1.1 ity of 3.104.2.7 [place] .3.978456 Medica l .8 Branch 2022-02-04 2022-02-04 Travel 1.2.840.1 1.2.690.474 [id number] Univers 00:00:00 00:00:00 64788.1.1 350.1.13.10 ity of 3.104.2.7 4.2.7.3.698 [place] .3.676339 084.8 Medica l .8 Branch 2021-05-25 2021-05-26 Emergency Claudia, K [facility] 1.2.840.114 [id number] 18:28:00 00:07:00 Misa Howe 350.1.13.10 [place] 4.2.7.2.686 [place] [id number] 2020-12-19 2020-12-19 Orders Doctor NEGRITO 1.2.840.114 [id number] 00:00:00 00:00:00 Only UnassignedNAMRATA 350.1.13.10 [place] [facility] 4.2.7.2.686 [id number] 009 2020-11-28 2020-11-28 Patient Sharon Bunn 1.2.840.114 [id number] 00:00:00 00:00:00 Outreach Micki Wilson 350.1.13.10 Daniela 4.2.7.2.686 [id number] 2020-11-27 2020-11-27 Telephone Angie Aguilar 1.2.304.089 [id number] 00:00:00 00:00:00 Gianni Teresa 350.1.13.10 [facility] 4.2.7.2.686 [id number] 2020-10-06 2020-10-06 Outpatient BEE Garcia [id number] [facility] 23:33:00 23:33:00 [facility] [id number] [facility] Results Test Description Test Time Test Comments Results Result Comments Source COMP. METABOLIC PANEL (68222) 2022-05-27 01:04:32 Test Item Value Reference Range Interpretation Comme nts NA (test code = 9136303312) 135 mmol/L 135-145 K (test code = 3673654694) 2.3 mmol/L 3.5-5 LL CL (test code = 8662417028) 102 mmol/L 98-108 CO2 TOTAL (test code = 9011660842) 21 mmol/L 23-31 L AGAP (test code = 2679032713) 2-16 BUN (test code = 4160808877) 5 mg/dL 7-23 L GLUCOSE (test code = 2513263932) 142 mg/dL 70-110 H CREATININE (test code = 0.68 mg/dL 0.6-1.25 0831167255) TOTAL BILI (test code = 0.6 mg/dL 0.1-1.0 5469031624) CALCIUM (test code = 7468404995) 7.9 mg/dL 8.6-10.6 L T PROTEIN (test code = 7466660401) 7.3 g/dL 6.3-8.2 ALBUMIN (test code = 5869899501) 3.2 g/dL 3.5-5 L ALK PHOS (test code = 2340018003) 100 U/L 34-122 ALTv (test code = 1742-6) 13 U/L 5-50 AST(SGOT) (test code = 4847339279) 17 U/L 13-40 eGFR (test code = 1058080996) mL/min/1.73m2 LU (test code = LU) Association [...] tests). Lab Interpretation (test code = Abnormal 73457-3) [facility] WITH [id number] 00:45:16 Test Item Value Reference Range Interpretation Comments WBC (test code = See_Comment [Automated 0090-2) message] The sy stem which generated this result transmitted reference range : 4.20 - 10.70 10*3/?L. The reference range was not used to interpret this result as normal/abnormal . RBC (test code = See_Comment L [Automated 059-8) message] The sy stem which generated this [...] RDW-SD (test code = 49.6 fL 38.5-51.6 82144-5) RDW-CV (test code = 15.1 % 12.1-15.4 788-0) PLT (test code = See_Comment [Automated 777-3) message] The sy stem which generated this result transmitted reference range : 150 - 328 10*3/ ?L. The reference r alisson was not used to interpret this result as normal/abnormal . MPV (test code = 11.2 fL 9.8-13 89858-5) NRBC/100 WBC (test See_Comment [Automat ed code = 9799998796) message] The system which generated this result transmitted reference range : 0.0 - 10.0 /100 WBCs. The refer ence range was not u sed to interpret th is result as normal/abnormal . NRBC x10^3 (test code See_Comment [Auto mated = 0190204510) message] The s ystem which generated this result transmitted reference range : 10*3/?L. The reference range was not used to interpret this result as normal/abnormal . GRAN MAT (NEUT) % 72.3 % (test code = 770-8) IMM GRAN % (test code 0.20 % = 6771844183) LYMPH % (test code = 19.9 % 736-9) MONO % (test code = 6.3 % 5905-5) EOS % (test code = 1.0 % 713-8) BASO % (test code = 0.3 % 706-2) GRAN MAT x10^3(ANC) 6.43 10*3/uL 1.99-6.95 (test code = 1309695372) IMM GRAN x10^3 (test 0-0.06 code = 5791930166) LYMPH x10^3 (test code 1.77 10*3/uL 1.09-3.23 = 731-0) MONO x10^3 (test code 0.56 10*3/uL 0.36-1.02 = 742-7) EOS x10^3 (test code = 0.09 10*3/uL 0.06-0.53 711-2) BASO x10^3 (test code 0.03 10*3/uL 0.01-0.09 = 704-7) Lab Interpretation Abnormal (test code = 59295-8) [facility] METABOLIC PANEL (NA, K, CL, CO2, GLUCOSE, BUN, CREATININE, CA)2022-04-29 10:41:04 Test Item Value Reference Range Interpretation Comments NA (test code = 141 mmol/L 135-145 3407432495) K (test code = 4.1 mmol/L 3.5-5 3145031230) CL (test code = 113 mmol/L 98-108 H 1101897368) CO2 TOTAL (test code = 26 mmol/L 23-31 2592589996) AGAP (test code = 2-16 3780108095) BUN (test code = 2 mg/dL 7-23 L 5558325786) GLUCOSE (test code = 77 mg/dL 70-110 0940562407) CREATININE (test code = 0.43 mg/dL 0.6-1.25 L 0305576394) CALCIUM (test code = 7.5 mg/dL 8.6-10.6 L 7709545885) eGFR (test code = mL/min/1.73m2 3763039151) LU (test code = LU) Association of [...] tests). Lab Interpretation Abnormal (test code = 36005-9) [facility] METABOLIC PANEL (NA, K, CL, CO2, GLUCOSE, BUN, CREATININE, CA)2022-04-29 10:41:04 Test Item Value Reference Range Interpretation Comments NA (test code = 141 mmol/L 135-145 4232056445) K (test code = 4.1 mmol/L 3.5-5.0 5878485240) CL (test code = 113 mmol/L 98-108 H 8898698219) CO2 TOTAL (test code = 26 mmol/L 23-31 7451057995) AGAP (test code = 2-16 7719584032) BUN (test code = 2 mg/dL 7-23 L 4052736081) GLUCOSE (test code = 77 mg/dL 70-110 3674141285) CREATININE (test code = 0.43 mg/dL 0.60-1.25 L 6090535338) CALCIUM (test code = 7.5 mg/dL 8.6-10.6 L 1722265324) eGFR (test code = mL/min/1.73m2 0304877143) LU (test code = LU) Association of [...] tests). Lab Interpretation Abnormal (test code = 08788-8) [facility] Test Item Value Reference Range Interpretation Comments MAGNESIUM (test code = 1373869270) 1.7 mg/dL 1.7-2.4 Lab Interpretation (test code = Normal 42870-4) [facility]:02[facility]20 Test Item Value Reference Range Interpretation Comments MAGNESIUM (test code = 2416547371) 1.7 mg/dL 1.7-2.4 Lab Interpretation (test code = Normal 76742-0) [facility] METABOLIC PANEL (NA, K, CL, CO2, GLUCOSE, BUN, CREATININE, CA)2022-04-28 17:52:13 Test Item Value Reference Range Interpretation Comments NA (test code = 142 mmol/L 135-145 2154057985) K (test code = 2.6 mmol/L 3.5-5 LL 9045527230) CL (test code = 109 mmol/L 98-108 H 1832049632) CO2 TOTAL (test code = 26 mmol/L 23-31 8606086614) AGAP (test code = 2-16 5366180928) BUN (test code = 3 mg/dL 7-23 L 8672488622) GLUCOSE (test code = 95 mg/dL 70-110 9488909849) CREATININE (test code = 0.57 mg/dL 0.6-1.25 L 7479724375) CALCIUM (test code = 7.6 mg/dL 8.6-10.6 L 3296693786) eGFR (test code = mL/min/1.73m2 5299419514) LU (test code = LU) Association of [...] tests). Lab Interpretation Abnormal (test code = 44900-3) [facility] METABOLIC PANEL (NA, K, CL, CO2, GLUCOSE, BUN, CREATININE, CA)2022-04-28 17:52:13 Test Item Value Reference Range Interpretation Comments NA (test code = 142 mmol/L 135-145 3941798795) K (test code = 2.6 mmol/L 3.5-5.0 LL 8722564260) CL (test code = 109 mmol/L 98-108 H 8317502820) CO2 TOTAL (test code = 26 mmol/L 23-31 9613032343) AGAP (test code = 2-16 7811150621) BUN (test code = 3 mg/dL 7-23 L 9794215298) GLUCOSE (test code = 95 mg/dL 70-110 8447443218) CREATININE (test code = 0.57 mg/dL 0.60-1.25 L 1855231221) CALCIUM (test code = 7.6 mg/dL 8.6-10.6 L 5893962587) eGFR (test code = mL/min/1.73m2 5792352031) LU (test code = LU) Association of [...] tests). Lab Interpretation Abnormal (test code = 55532-2) [facility] METABOLIC PANEL (NA, K, CL, CO2, GLUCOSE, BUN, CREATININE, CA)2022-04-28 17:52:13 Test Item Value Reference Range Interpretation Comments NA (test code = 142 mmol/L 135-145 3730551916) K (test code = 2.6 mmol/L 3.5-5.0 LL 1456489999) CL (test code = 109 mmol/L 98-108 H 7184463543) CO2 TOTAL (test code = 26 mmol/L 23-31 6887312200) AGAP (test code = 2-16 3182500949) BUN (test code = 3 mg/dL 7-23 L 8853882439) GLUCOSE (test code = 95 mg/dL 70-110 4411204434) CREATININE (test code = 0.57 mg/dL 0.60-1.25 L 5121741952) CALCIUM (test code = 7.6 mg/dL 8.6-10.6 L 9423224012) eGFR (test code = mL/min/1.73m2 9305197843) LU (test code = LU) Association of [...] tests). Lab Interpretation Abnormal (test code = 23512-7) [facility] WITHOUT [id number] 17:16:02 Test Item Value Reference Range Interpretation Comments WBC (test code = 6690-2) See_Comment [A utomated message] The system [employer] generated this result transmit annette reference range : 4.20 - 10.70 10*3/?L. The reference range was not used to interpret this result as normal/abnormal . RBC (test code = 789-8) See_Comment L [Au tomated message] The system [employer] generated this result transmit annette reference range [...] 777-3) See_Comment [Au tomated message] The system [employer] generated this result transmit annette reference range : 150 - 328 10*3/?L. The reference range was not used to interpret this result as normal/abnormal . MPV (test code = 10.7 fL 9.8-13 76498-7) RDW-CV (test code = 14.9 % 12.1-15.4 788-0) RDW-SD (test code = 48.9 fL 38.5-51.6 13289-7) NRBC x10^3 (test code = See_Comment [Au tomated message] [id number]) The system [employer] generated this result transmit annette reference range : 10*3/?L. The reference range was not used to interpret this result as normal/abnormal . NRBC/100 WBC (test code See_Comment [Au tomated message] = [id number]) The system [facility] generated this result transmit annette reference range : 0.0 - 10.0 /100 WBC s. The reference r alisson was not used to interpret this result as normal/abnormal . IPF % (test code = [id number]) Lab Interpretation (test Abnormal code = 87455-8) [facility] WITHOUT [id number] 17:16:02 Test Item Value Reference Range Interpretation Comments WBC (test code = 6690-2) See_Comment [A utomated message] The system [employer] generated this result transmit annette reference range : 4.20 - 10.70 10*3/?L. The reference range was not used to interpret this result as normal/abnormal . RBC (test code = 789-8) See_Comment L [Au tomated message] The system [facility] generated this result transmit annette reference [...] 777-3) See_Comment [Au tomated message] The system [facility] generated this result transmit annette reference range : 150 - 328 10*3/?L. The reference range was not used to interpret this result as normal/abnormal . MPV (test code = 10.7 fL 9.8-13.0 76601-9) RDW-CV (test code = 14.9 % 12.1-15.4 788-0) RDW-SD (test code = 48.9 fL 38.5-51.6 84707-2) NRBC x10^3 (test code = <0.01 See_Comment [Au tomated message] [id number]) [facility] generated this result transmit annette reference range : 10*3/?L. The reference range was not used to interpret this result as normal/abnormal . NRBC/100 WBC (test code See_Comment [Au tomated message] = 4456732480) The system [facility] generated this result transmit annette reference range : 0.0 - 10.0 /100 WBC s. The reference r alisson was not used to interpret this result as normal/abnormal . IPF % (test code = 7556364175) Lab Interpretation (test Abnormal code = 08538-2) [facility] WITHOUT [id number] 17:16:02 Test Item Value Reference Range Interpretation Comments WBC (test code = 6690-2) See_Comment [A utomated message] The system [employer] generated this result transmit annette reference range : 4.20 - 10.70 10*3/?L. The reference range was not used to interpret this result as normal/abnormal . RBC (test code = 789-8) See_Comment L [Au tomated message] The system [employer] generated this result transmit annette reference range [...] 777-3) See_Comment [Au tomated message] The system [facility] generated this result transmit annette reference range : 150 - 328 10*3/?L. The reference range was not used to interpret this result as normal/abnormal . MPV (test code = 10.7 fL 9.8-13.0 16634-0) RDW-CV (test code = 14.9 % 12.1-15.4 788-0) RDW-SD (test code = 48.9 fL 38.5-51.6 11833-1) NRBC x10^3 (test code = <0.01 See_Comment [Au tomated message] 2216679165) The system [employer] generated this result transmit annette reference range : 10*3/?L. The reference range was not used to interpret this result as normal/abnormal . NRBC/100 WBC (test code See_Comment [Au tomated message] = 3345359415) The system [facility] generated this result transmit annette reference range : 0.0 - 10.0 /100 WBC s. The reference r alisson was not used to interpret this result as normal/abnormal . IPF % (test code = 5912219618) Lab Interpretation (test Abnormal code = 43188-5) [id number] 22:31:26 Test Item Value Reference Range Interpretation Comments K (test code = 6597829747) 3.3 mmol/L 3.5-5 L Lab Interpretation (test code = Abnormal 50179-1) [facility] (NA, K, CL, CO2, GLUCOSE, BUN, CREATININE, CA)2022-04-27 22:31:26 Test Item Value Reference Range Interpretation Comments NA (test code = 144 mmol/L 135-145 6699749692) K (test code = 3.3 mmol/L 3.5-5 L 6767628507) CL (test code = 112 mmol/L 98-108 H 9299239849) CO2 TOTAL (test code = 27 mmol/L 23-31 4321568695) AGAP (test code = 2-16 4722965415) BUN (test code = 5 mg/dL 7-23 L 1478242988) GLUCOSE (test code = 118 mg/dL 70-110 H 7494278734) CREATININE (test code = 0.63 mg/dL 0.6-1.25 2144277721) CALCIUM (test code = 7.6 mg/dL 8.6-10.6 L 7161489506) eGFR (test code = mL/min/1.73m2 6387322034) LU (test code = LU) Association of [...] tests). Lab Interpretation Abnormal (test code = 09847-0) [facility] [id number] 22:31:26 Test Item Value Reference Range Interpretation Comments K (test code = 1177242865) 3.3 mmol/L 3.5-5.0 L Lab Interpretation (test code = Abnormal 64387-5) [facility] [id number] 22:31:26 Test Item Value Reference Range Interpretation Comments K (test code = 9067453947) 3.3 mmol/L 3.5-5.0 L Lab Interpretation (test code = Abnormal 56636-2) [facility] METABOLIC PANEL (NA, K, CL, CO2, GLUCOSE, BUN, CREATININE, CA)2022-04-27 22:31:26 Test Item Value Reference Range Interpretation Comments NA (test code = 144 mmol/L 135-145 9738453588) K (test code = 3.3 mmol/L 3.5-5.0 L 0700328933) CL (test code = 112 mmol/L 98-108 H 9906384484) CO2 TOTAL (test code = 27 mmol/L 23-31 1458281751) AGAP (test code = 2-16 6502938168) BUN (test code = 5 mg/dL 7-23 L 2551814584) GLUCOSE (test code = 118 mg/dL 70-110 H 8058762540) CREATININE (test code = 0.63 mg/dL 0.60-1.25 4046986930) CALCIUM (test code = 7.6 mg/dL 8.6-10.6 L 3800443637) eGFR (test code = mL/min/1.73m2 2539783824) LU (test code = LU) Association of [...] tests). Lab Interpretation Abnormal (test code = 64117-5) [facility]2022-07-05 21:22:49 Test Item Value Reference Range Interpretation Comments MAGNESIUM (test code = 1013859875) 2.1 mg/dL 1.7-2.4 Lab Interpretation (test code = Normal 02401-0) [facility]2022-07-05 21:22:49 Test Item Value Reference Range Interpretation Comments MAGNESIUM (test code = 0611885033) 2.1 mg/dL 1.7-2.4 Lab Interpretation (test code = Normal 70682-7) [facility]2022-07-05 21:22:49 Test Item Value Reference Range Interpretation Comments MAGNESIUM (test code = 3916283526) 2.1 mg/dL 1.7-2.4 Lab Interpretation (test code = Normal 93191-0) [facility] (NA, K, CL, CO2, GLUCOSE, BUN, CREATININE, CA)2022-04-27 15:50:29 Test Item Value Reference Range Interpretation Comments NA (test code = 143 mmol/L 135-145 4670373678) K (test code = 2.4 mmol/L 3.5-5 LL 2341858815) CL (test code = 110 mmol/L 98-108 H 6060602421) CO2 TOTAL (test code = 28 mmol/L 23-31 8561170717) AGAP (test code = 2-16 4403104654) BUN (test code = 4 mg/dL 7-23 L 5376267441) GLUCOSE (test code = 56 mg/dL 70-110 L 7443712344) CREATININE (test code = 0.65 mg/dL 0.6-1.25 1240733149) CALCIUM (test code = 7.7 mg/dL 8.6-10.6 L 6409650162) eGFR (test code = mL/min/1.73m2 2264439246) LU (test code = LU) Association of [...] tests). Lab Interpretation Abnormal (test code = 84127-9) [facility] METABOLIC PANEL (NA, K, CL, CO2, GLUCOSE, BUN, CREATININE, CA)2022-04-27 15:50:29 Test Item Value Reference Range Interpretation Comments NA (test code = 143 mmol/L 135-145 1014873621) K (test code = 2.4 mmol/L 3.5-5.0 LL 1404745013) CL (test code = 110 mmol/L 98-108 H 7121163086) CO2 TOTAL (test code = 28 mmol/L 23-31 5338516068) AGAP (test code = 2-16 6066293368) BUN (test code = 4 mg/dL 7-23 L 4143729239) GLUCOSE (test code = 56 mg/dL 70-110 L 1957476519) CREATININE (test code = 0.65 mg/dL 0.60-1.25 4606475888) CALCIUM (test code = 7.7 mg/dL 8.6-10.6 L 8454129181) eGFR (test code = mL/min/1.73m2 9935111334) LU (test code = LU) Association of [...] tests). Lab Interpretation Abnormal (test code = 75316-7) [facility] [id number] 23:23:37 Test Item Value Reference Interpretation Comments Range TROPONIN I (test 0.007 ng/mL See_Comment [Automated code = 5454856007) message] The system which generated this result [...] biotin. Lab Interpretation Normal (test code = 45124-7) [facility] ([id number])2022-04-26 23:23:37 Test Item Value Reference Range Interpretation Comments NA (test code = 143 mmol/L 135-145 5279390702) K (test code = 2.3 mmol/L 3.5-5 LL 9878992831) CL (test code = 107 mmol/L 98-108 5856437292) CO2 TOTAL (test code = 27 mmol/L 23-31 2767002075) AGAP (test code = 2-16 3580121948) BUN (test code = 4 mg/dL 7-23 L 7803254011) GLUCOSE (test code = 86 mg/dL 70-110 0375158479) CREATININE (test code = 0.73 mg/dL 0.6-1.25 1702545159) TOTAL BILI (test code = 0.7 mg/dL 0.1-1.5 7253870708) CALCIUM (test code = 7.6 mg/dL 8.6-10.6 L 5269340003) T PROTEIN (test code = 6.5 g/dL 6.3-8.2 0087052851) ALBUMIN (test code = 2.7 g/dL 3.5-5 L 3181895049) ALK PHOS (test code = 96 U/L 34-122 5064262585) ALTv (test code = 13 U/L 5-50 1742-6) AST(SGOT) (test code = 22 U/L 13-40 6193887318) eGFR (test code = mL/min/1.73m2 9094722349) LU (test code = LU) Association of [...] tests). Lab Interpretation Abnormal (test code = 16365-3) [facility] [id number] 23:23:37 Test Item Value Reference Interpretation Comments Range TROPONIN I (test 0.007 ng/mL See_Comment [Automated code = 2430796431) message] The system which generated this result [...] biotin. Lab Interpretation Normal (test code = 37668-7) [facility] ([id number])2022-04-26 23:23:37 Test Item Value Reference Range Interpretation Comments NA (test code = 143 mmol/L 135-145 6628462965) K (test code = 2.3 mmol/L 3.5-5.0 LL 4368574765) CL (test code = 107 mmol/L 98-108 2246524728) CO2 TOTAL (test code = 27 mmol/L 23-31 8398793198) AGAP (test code = 2-16 0245148756) BUN (test code = 4 mg/dL 7-23 L 7723122785) GLUCOSE (test code = 86 mg/dL 70-110 0490428715) CREATININE (test code = 0.73 mg/dL 0.60-1.25 4675178493) TOTAL BILI (test code = 0.7 mg/dL 0.1-1.6 6191114559) CALCIUM (test code = 7.6 mg/dL 8.6-10.6 L 7525610039) T PROTEIN (test code = 6.5 g/dL 6.3-8.2 1656760616) ALBUMIN (test code = 2.7 g/dL 3.5-5.0 L 1584643886) ALK PHOS (test code = 96 U/L 34-122 2056774952) ALTv (test code = 13 U/L 5-50 2-6) AST(SGOT) (test code = 22 U/L 13-40 0771492588) eGFR (test code = mL/min/1.73m2 5422210580) LU (test code = LU) Association of [...] tests). Lab Interpretation Abnormal (test code = 39957-9) [facility] [id number] 23:23:37 Test Item Value Reference Interpretation Comments Range TROPONIN I (test 0.007 ng/mL See_Comment [Automated code = 6815640051) message] The system which generated this result [...] biotin. Lab Interpretation Normal (test code = 83417-3) [facility]. METABOLIC PANEL (46090)2022-04-26 23:23:37 Test Item Value Reference Range Interpretation Comments NA (test code = 143 mmol/L 135-145 2493472401) K (test code = 2.3 mmol/L 3.5-5.0 LL 9107897877) CL (test code = 107 mmol/L 98-108 5031864393) CO2 TOTAL (test code = 27 mmol/L 23-31 9047616365) AGAP (test code = 2-16 2761876991) BUN (test code = 4 mg/dL 7-23 L 2499062499) GLUCOSE (test code = 86 mg/dL 70-110 5262581126) CREATININE (test code = 0.73 mg/dL 0.60-1.25 1354828419) TOTAL BILI (test code = 0.7 mg/dL 0.1-1.1 7699706495) CALCIUM (test code = 7.6 mg/dL 8.6-10.6 L 3069008553) T PROTEIN (test code = 6.5 g/dL 6.3-8.2 9554995073) ALBUMIN (test code = 2.7 g/dL 3.5-5.0 L 5188561414) ALK PHOS (test code = 96 U/L 34-122 6556823715) ALTv (test code = 13 U/L 5-50 1742-6) AST(SGOT) (test code = 22 U/L 13-40 1630030356) eGFR (test code = mL/min/1.73m2 0230607880) LU (test code = LU) Association of [...] tests). Lab Interpretation Abnormal (test code = 68562-8) [facility] [id number] 23:20:37 Test Item Value Reference Range Interpretation Comments NT-proBNP (test code 393 pg/mL See_Comment H [Autom ated = 9690589919) message] The system which generated this result transmitted reference range : <=125. The reference range was not used to interpret this result as normal/abnormal . LU (test code = LU) Biotin has been reported to cause a negative bias, interpret results relative to patient's use of biotin. Lab Interpretation Abnormal (test code = 44359-2) [facility] [id number] 23:20:37 Test Item Value Reference Range Interpretation Comments NT-proBNP (test code 393 pg/mL See_Comment H [Autom ated = 9863430635) message] The system which generated this result transmitted reference range : <=125. The reference range was not used to interpret this result as normal/abnormal . LU (test code = LU) Biotin has been reported to cause a negative bias, interpret results relative to patient's use of biotin. Lab Interpretation Abnormal (test code = 45972-1) [facility] [id number] 23:20:37 Test Item Value Reference Range Interpretation Comments NT-proBNP (test code 393 pg/mL See_Comment H [Autom ated = 1239085701) message] The system which generated this result transmitted reference range : <=125. The reference range was not used to interpret this result as normal/abnormal . LU (test code = LU) Biotin has been reported to cause a negative bias, interpret results relative to patient's use of biotin. Lab Interpretation Abnormal (test code = 43137-5) [facility] 23:11:39 Test Item Value Reference Range Interpretation Comments LIPASE (test code = 2348126463) 78 U/L 0-220 Lab Interpretation (test code = Normal 90848-4) [facility] 23:11:39 Test Item Value Reference Range Interpretation Comments LIPASE (test code = 5624001147) 78 U/L 0-220 Lab Interpretation (test code = Normal 67192-2) [facility] 23:11:39 Test Item Value Reference Range Interpretation Comments LIPASE (test code = 5615137563) 78 U/L 0-220 Lab Interpretation (test code = Normal 01552-9) [facility] WITH [id number] 22:55:18 Test Item Value Reference Range Interpretation Comments WBC (test code = See_Comment [Automated 6690-2) message] The sy stem which generated this result transmitted reference range : 4.20 - 10.70 10*3/?L. The reference range was not used to interpret this result as normal/abnormal . RBC (test code = See_Comment L [Automated 079-8) message] The sy stem which generated this [...] RDW-SD (test code = 45.2 fL 38.5-51.6 01697-3) RDW-CV (test code = 14.3 % 12.1-15.4 788-0) PLT (test code = See_Comment [Automated 777-3) message] The sy stem which generated this result transmitted reference range : 150 - 328 10*3/ ?L. The reference r alisson was not used to interpret this result as normal/abnormal . MPV (test code = 10.5 fL 9.8-13 03215-1) NRBC/100 WBC (test See_Comment [Automat ed code = 3903861792) message] The system which generated this result transmitted reference range : 0.0 - 10.0 /100 WBCs. The refer ence range was not u sed to interpret th is result as normal/abnormal . NRBC x10^3 (test code See_Comment [Auto mated = 5749599971) message] The s ystem which generated this result transmitted reference range : 10*3/?L. The reference range was not used to interpret this result as normal/abnormal . GRAN MAT (NEUT) % 73.6 % (test code = 770-8) IMM GRAN % (test code 0.30 % = 6419759871) LYMPH % (test code = 20.6 % 736-9) MONO % (test code = 4.9 % 5905-5) EOS % (test code = 0.3 % 713-8) BASO % (test code = 0.3 % 706-2) GRAN MAT x10^3(ANC) 6.49 10*3/uL 1.99-6.95 (test code = 8987248967) IMM GRAN x10^3 (test 0.03 10*3/uL 0-0.06 code = 4237576944) LYMPH x10^3 (test code 1.82 10*3/uL 1.09-3.23 = 731-0) MONO x10^3 (test code 0.43 10*3/uL 0.36-1.02 = 742-7) EOS x10^3 (test code = 0.03 10*3/uL 0.06-0.53 L 711-2) BASO x10^3 (test code 0.03 10*3/uL 0.01-0.09 = 704-7) Lab Interpretation Abnormal (test code = 47129-8) [facility] WITH [id number] 22:55:18 Test Item Value Reference Range Interpretation Comments WBC (test code = See_Comment [Automated 3590-2) message] The sy stem which generated this result transmitted reference range : 4.20 - 10.70 10*3/?L. The reference range was not used to interpret this result as normal/abnormal . RBC (test code = See_Comment L [Automated 9-8) message] The sy stem which generated this [...] RDW-SD (test code = 45.2 fL 38.5-51.6 40249-1) RDW-CV (test code = 14.3 % 12.1-15.4 788-0) PLT (test code = See_Comment [Automated 777-3) message] The sy stem which generated this result transmitted reference range : 150 - 328 10*3/ ?L. The reference r alisson was not used to interpret this result as normal/abnormal . MPV (test code = 10.5 fL 9.8-13.0 22608-6) NRBC/100 WBC (test See_Comment [Automat ed code = 7562014664) message] The system which generated this result transmitted reference range : 0.0 - 10.0 /100 WBCs. The refer ence range was not u sed to interpret th is result as normal/abnormal . NRBC x10^3 (test code <0.01 See_Comment [Auto mated = 0182736608) message] The s ystem which generated this result transmitted reference range : 10*3/?L. The reference range was not used to interpret this result as normal/abnormal . GRAN MAT (NEUT) % 73.6 % (test code = 770-8) IMM GRAN % (test code 0.30 % = 1704216037) LYMPH % (test code = 20.6 % 736-9) MONO % (test code = 4.9 % 5905-5) EOS % (test code = 0.3 % 713-8) BASO % (test code = 0.3 % 706-2) GRAN MAT x10^3(ANC) 6.49 10*3/uL 1.99-6.95 (test code = 9358991075) IMM GRAN x10^3 (test 0.03 10*3/uL 0.00-0.06 code = 2168531422) LYMPH x10^3 (test code 1.82 10*3/uL 1.09-3.23 = 731-0) MONO x10^3 (test code 0.43 10*3/uL 0.36-1.02 = 742-7) EOS x10^3 (test code = 0.03 10*3/uL 0.06-0.53 L 711-2) BASO x10^3 (test code 0.03 10*3/uL 0.01-0.09 = 704-7) Lab Interpretation Abnormal (test code = 12889-1) [facility] WITH [id number] 22:55:18 Test Item Value Reference Range Interpretation [...] RDW-SD (test code = 45.2 fL 38.5-51.6 28113-5) RDW-CV (test code = 14.3 % 12.1-15.4 788-0) PLT (test code = See_Comment [Automated 777-3) message] The sy stem which generated this result transmitted reference range : 150 - 328 10*3/ ?L. The reference r alisson was not used to interpret this result as normal/abnormal . MPV (test code = 10.5 fL 9.8-13.0 59375-0) NRBC/100 WBC (test See_Comment [Automat ed code = 0977785977) message] The system which generated this result transmitted reference range : 0.0 - 10.0 /100 WBCs. The refer ence range was not u sed to interpret th is result as normal/abnormal . NRBC x10^3 (test code <0.01 See_Comment [Auto mated = 6408092412) message] The s ystem which generated this result transmitted reference range : 10*3/?L. The reference range was not used to interpret this result as normal/abnormal . GRAN MAT (NEUT) % 73.6 % (test code = 770-8) IMM GRAN % (test code 0.30 % = 3275851489) LYMPH % (test code = 20.6 % 736-9) MONO % (test code = 4.9 % 5905-5) EOS % (test code = 0.3 % 713-8) BASO % (test code = 0.3 % 706-2) GRAN MAT x10^3(ANC) 6.49 10*3/uL 1.99-6.95 (test code = 0927938024) IMM GRAN x10^3 (test 0.03 10*3/uL 0.00-0.06 code = 5146248031) LYMPH x10^3 (test code 1.82 10*3/uL 1.09-3.23 = 731-0) MONO x10^3 (test code 0.43 10*3/uL 0.36-1.02 = 742-7) EOS x10^3 (test code = 0.03 10*3/uL 0.06-0.53 L 711-2) BASO x10^3 (test code 0.03 10*3/uL 0.01-0.09 = 704-7) Lab Interpretation Abnormal (test code = 41933-4) [facility] [id number] 16:42:42 Test Item Value Reference Range Interpretation Comments Case Report (test code Surgical Pathology ? ? = [id number]) ?Case: [id number] ? Authorizing Provider: ?Negrito Simeon MD ? Collected: ? 03/12/2022 1050 ?Ordering Location: ? ? [facility] ? ? ?Received: ?03/12/2022 1656 ? [facility] ?Pathologist: ? Carolin Ruiz MD ? Specimens: ? A) - APPENDIX ? B) - HERNIA SAC, RIGHT INGUINAL, RIGHT INGUINAL HERNIA SAC ? Final Diagnosis (test x4iugVFoWMLka3hzIDYddH code = 9975636694) FuZzEwMzNcZnRuYmpcdWMx IHtccnRmMVxhbnNpXGRlZm xqtkwpTEVoKCX8mtRkIGFm HJI2IEQ1XfFsZHNbOlu3PL FpEY9lqZgvpUs7cSrdLTEv jlC6uNVpYZtvv3pgXVP2g2 hsnfxkTOAvGAsfAw7jbQCn fDdgTnLsNRPxMHd1fH47NV TjxD5raYAoXVqaqoYpKrO5 HVasSNUaCmN4TNZafLZaHE H7lOqeTKQrybdyTdZ1VQks XYXuqwsqLQk6XOpgXSSukN U3GREiwASqJ2XqRFCcES3k mjs5BBP6ZKujKZCrEdE1JJ GvrDEqIHGnlCliBNfiy079 SUM8EcDcCUMkhmPrzVgntX 5kNsUcIIpsAIIqHB9nHTOT BR0PPWslQLLDJJDEJTOOFS 9NWTpccGFyICAgICAtIEJF TklHTiBBUFBFTkRJWCBUSV YXONYrN6wSIKQYIRCZYWaq I18QB5QFUDlGPsDYQwQAHA CSFXNWKC1BBGIEZJlkHEXC US0UKMMNSMVJOVDfzNCsNL ZftdKCTdPoR3rqBmJxhNJa SEVSTklBIFNBQywgRVhDSV EOR786IPQpxln+BJ5mjfe+ EJ3nMMHXIpgNLaVACGJHMM wGRDkLDOGFRO0BETZLKOAZ C1UYXNLJL7ZmLJoOR4RNLU gXFBywWxJUE0CZPZWcU82M V0QAJOkCPlwvFTZpyzRjJQ JcKBLdD14ZO8uDLYJGGVTI TUPYINuMFv1CUXYPXGYxjV PaLRXmC4UwUWUkBCOhwbsx czIyIExpbmRzYXkgQmlnaG AcITRASfRtYK7bRU2eMRUx NGZ8WrNvVJXQEYWgqmoqqf WtMKPrnu14FGV7ZeMxx3H6 LVWxZiKvOYNiJI0mfClmQH SaEU8xFTOuS2irxH4ozld8 PySvLODoUtY6MWIemxR5Gs y8RJEgNUxfw2yyj7BlM5Vt lYArePd1d9hwJGKdSbX3mA AhRDpaL1zkwjRcoDHfWGFg GNf0mLjaDiYrIEQkc7kwia BcZmNoYXJzZXQwIENhbGli nyl7dJ01AQRpzJ9edFEuOB bekgNuUhS5NWklNEJwVqO7 CLTiaGQsOXNnC8iaFTEiMF skVPDlRPbvaLDhUDC2sZrj t2B8gKXwhXUxaJqiBzPjPu BhSFESi6WcJPr0bKxhG8Kj CYNuAqF5qCYuIPOoVEnyKT GeROAnkhN4oW19EEdcwzB2 nHNlq6Glz93do077uL5yfH TbCYW5CMObYBVcyWTeVUQj SFI1SNAstVQdX3ljCYEtIT 4iinpsAGxzFXuhNRCbhXW6 XTPmpSXaI6SbEDXaDXloMS Hyynx6GeDuQm4ybQWkrJzl FZxxf4ajr5tuqVOcUaf2FU EjNkTpGmpcIBykr3Vfn1mb LIYlsi0pAPW8jNTrkMbwk3 I1kAPfNWZnqYBqarQiPCRi DyQ3AJxuCQ0bom14KAKwOP P4sc7uiFHxsYrmkgRwwLPm BNhoL6IcWVLbh141MJJlV5 ArDUOmx6V5srBaTwEjDZGd qIA5smP1IFScIMw7xXVbtm V5nrDivZIpZ8cvnL0lCSKh GT5agqjlw4ohFNtmEIsmXS SdaIA9xqV2YIYbzJDnH4Vr yC3mOSUtSYyfYLFoime1Zj WoEo5ojQBsnXsdCShnBucl YWdlXHBnbmNvbnRccGduZG VjXHBsYWluXHBsYWluXGYw DCMsZjFocEwhhBysjQ2kMr ZpFjWzVMqjZR5fBBHvP1ms gRIzJXMaJVDuA9spMgWlpF 9jaFxmMVxjZjJcZnMyMFxw YXIgSSBoYXZlIHBlcnNvbm QsiRinvqJ0sFF9TPSaFYfg CSWkKPOmwWMgus8zgUznYQ XeYJ2mYRMjbmTgEVlhoHsf HBnsZJP4EDRuuDMwdFUgpF FkZSBieSByZXNpZGVudHMs LUZpkCpln6Zdw6JtzXR8hL 5hq8qgs1VkLPEncID5EP22 piQ6oF8aUOMnJY4qYCMaUE 3gsLZniGSrUMUtu57fcMmu cyByZXBvcnQuXHBsYWluXG YyXGZzMjhcbGFuZzEwMzNc aGljaFxmMlxkYmNoXGYyXG mpO1qsLcCmIaCsTChuONC2 uOtvwnRzYEajq2JhN7MlWq AwMFxhbnNpXGRlZmxhbmcx JHQlXFW4zaMuISKxCQpmMA SdPPboBl5inUDefWhnWdHn QKAxj9thtvRMWVmqSwGgN8 00OJMsXGqqj0otc9TcVEHw jLXdk5E2PBHJqpxsdBz7nA thV37bb3V9HbyzX4ddRZLh HIYnU2NvFT8gSVOtCet8GC I7DAJ2DQJhOITeY9UeGA9u NOMwwWTvDGk6l2ehlAojYL TdLRO8d7htVQheikG9TX4z xx7ugJi3a4dltoPqHQJvCS VpmPKFJVYeJ7WkeEoqYs5j rGg7bKiyEyzfCEI0Vbm4EA 0ahn17boj8lWboOGWkltbt VtA4OHlgYFKnbrroCBz4WB nsJKJshBB5ANQqqYFmA3Ov HULnAH2hnxy8DOX5KFjzUM DzYbU7VVDmwDNaMCKpmQci FMmda822ZMS2RtXnDZ9yR7 Agw3D3cF5blHFoHHThjYAs AtCvQRAepj8mhKUxIEvph6 OrQ55lyEN0SUwhu2uvWY7k QwD5pqTlCRfqk2hsfX7hOr W5XHfzJP3qjg50XDZqAXM5 oy9btEPksJnbylCtyCQaHV poM0IgNBZgx565YDWsC7Cx ODOng3A9bwRrDmAsFEHsiN T1fwM0YZIwEAk9qZMrsfI4 ukLytUBuM3xqeZ4sMCRiNE 0lwskcj2vuBTnuJPuvHGGk lYU1pdF1TMWalTFeC8DglM 0mQQYuGMwjVBHkflv3OoMw Cj1deOErxYvbNDmaHrihNQ dlXHBnbmNvbnRccGduZGVj XHBsYWluXHBsYWluXGYwXG OyBiGozJGwPUdfh8AygvAa rXbsRMDsHZw1erAanntdjC p9zAIwfFyoLRObxTmkkU3z JrWjEbYpGJcfTX3sJERpU0 vfeAIaBRZjJDQcH4uuJoLp vS4hcUziETtbWnZcVsHuEM xsdHJjaFxwYXIgSSBoYXZl IYXsdoXsvdWbyOnevnI0fZ F3SNCeEVvwIXDfMXIhwCXp xq6nwXdqPGBmCQ5rNYYcwi IkRGhlyFruUFeyZRO0ZAFq bWVudHMgbWFkZSBieSByZX GyZFAtlXFaGJXypRoya4Lz l5UysDZ1cL6gj7cyi4RsUO WocJZ8QC12pkH9uC5qNIPd UN2yXQVdUM5iqOBitLEyHF Wmx17ywXpfvlGcSAOenmVz XHBsYWluXGYxXGZzMjBcbG FuZzEwMzNcaGljaFxmMVxk XqEhOIGqPLkiI7gzPmUuC8 YyXGZzMjBccGFyXHBhclxw ROYmi3TcAzPlq6zjMTrqz6 rxdGk9HYsxiHYbferqUMgf bfQ8KBVvCAlhCNXhSQSrFZ RcbGFuZzEwMzNcaGljaFxm AUbkMsIzIBOrSFryK6lmDm HzI0NsCTCoREUksLCrG9ub RCF2lZ1ku2hqu6RpuIYbUx Rlc3stvyOkQQCvwDJzizUn kFCyUXAfm1AfLKPoYSXlWV JSTj1GHVTetFDoI1p3mVUT WJ3ffOFmGRUsZIZcS4UuNo OZwkWyh4Z6KZZmeNJwDPFL GCKsmILwC5c3dAyeFVzgAz g6XvDmwUaoxK4sDgLdBxAj ZKqkBV4vZPEpT7snsZYqZU GcXZAvN4tcBwMohO2btGzs MVxjZjJcZnMyMFxsdHJjaF fiYAF2vI== Clinical Information RIGHT INGUINAL HERNIA (test code = [id number]) Gross Description (test t0njgJGdYLJzvJSDJLJaN7 code = [id number]) dijkSdUNUwyTFzW5Ltkjvv RFloHL8mGW5jhNywlKZtxV ZpDG6EOYEcBhVgKWRnbKAe ooGfPpNfKFVreQGwpTU7NX YxPB3fwmomEAoiSOpmOPTc jnU6XKSecQHfI2RsTASoHI 8guwjwLVN3XIbsuF3dxaOV TrlwFc4cxALgpTdqPvDuHk NoYXJzZXQwXGZuaWwgQXJp KXt1xH9JCttxHVN3UQYYNg muERZgUJ6Zc0ejIPElxCUo TDD7WGrdwCFuRSPcXJTyWZ o7CEJjCMpxnNEmWP9bvRsz TvkqrZnjg7DhrWLiQCprGF QqSAVxEZfqLRElYD6CDgOq ICV8FYfbSEddECd9NSo6RI 9WUyAiICAxODgyOTUyMSIg JXs3WBxjKP1JQND9KjL4RX E9PomiIJYsWisvTBp5KKPb XFxmIEFyaWFsIFxcZnMgMT EhTIsurSYxCX1ieBcbbANh blxmczIwIFNQRUNJTUVOIE NygGMwIQ2SHLUhWWygPWCq wHMLLCQ8EN4hDJOHKizycA VsAQEslYroACktuA9oMD6W MKe2hyFvIQThVyUrK7XtV3 azES0yCNKqpsRrZBUpyUTj HIFbvdUsy7GnZUuivlSqFE JlbGVkIHdpdGggdGhlIHBh yMenbdMfonWqXF8yFGYLGI FqvC2xJONeWxOfdCXmUFs3 VpjzOF0oYPQcejUav9NkCI 9mIGFuIGludGFjdCwgdmVy mSmax5GaIOJirJTmZUz8OW k9IhJsE20skV5syAQrL0Mj HBxfXM73UYWoHBLsgRBdek MffSBwBUHbpkllq9b3wXVl oUBeN5atDXDnFLHeENUnVK 5ubKvbDV8mRYDkV5J1cRXa xJxhONTzKNKdX6Tro03ivZ PxU3vlJiSZlJMfx6Kqe4Ir EYnjCXPesq5epP7dSUElSK UyvvEqf48vtgCgeKi6TQGj g774yGN3rMQbYDXlmbevm6 UcKAV7LILmYYghVrDTlDMy y2IrY8vcUK5auTVtv6PopR IgwVvzf5YvmTkbefMaARSa IURntyGdiWT0QV8xeOccet UbmRZcz2LuKoHgEGKmLL9d LOXyjDMmXB5kwzGqV7zgJp Rnec5vPWFqiwSxgS10SCGy NSBjbSBpbiBkaWFtZXRlci B2wKO3GKOhwkEctL5iADVa J01jfV59ytDquZ78dwVcu9 Qlj18jaRC7HA1lEkRlx14j GvFeUAqlvWO7PKGlTMyeQF 6aYCGaavZccvF8oD6unoOk kiIwA8Tby5QyxMPlMNDtlA munDFhBlQPIYG1pA5dyfD1 byBpbmNsdWRlIHRoZSBlbi YsVZHhSIFsj0McaUqullBv VCPqpU6jTAfsl6SzZTWqzK UpLCByZXByZXNlbnRhdGl2 LZQqxh6cgd4aPZS9hS8bVS CarbDtOduqCXV2VMYjsKwd OJPoENIxeIPrlLK5EJPypI 9kHHRfIQgiiWnumQ4gRGKi N89gs7SEx3WiECRjSLfzc6 erqEczx3ZlyJMyUWbmZUBa kPSpTEqylI5eUaZxa6lsoU j0FXasbaN8YYEfdc5AKxga NkemsHrsk5NjaSDkNKfaEQ FsHEKuCPnnCGVnNK1YCrOg AED6JGwsTNmlUVp2ZIp2SF 8ONtAyOXWrMUcjHXb6UUSy GFm1YGwfIO8PMCF4IiP0IU E8JMAgJECtJapaTTw5WDHl XFxmIEFyaWFsIFxcZnMgMT RgPLmayLXrSW8biGnimxWl IFNQRUNJTUVOIEJccGFyIA 2BJCBeKJmwENWkrVZGSUZ6 GF7aIGEGJrrvaYKkTTOgaI apJFjiiK8iRP8FZYe5kbKf DXXgNlZiN0WaQ8tqXK7zDz BpcyByZWNlaXZlZCBpbiBm b0OlWYoeqhJcITXjzGWoUA dpdGggdGhlIHBhdGllbnQn esYkLE3nHXNNAPUyoU8hRG XhJxHanYbwxINenox9aU9f dITpVLScvRVpc3PbBqcdGX 2eNTArpxCjr5XbHT8eSUYr jCRhNTQutqaog6EsP7WpDG Dnp39zgOW1uRRxpQMdIfQh O77tujNmDJRnSXX4EZAnXX Q6ORKcVzZjwSpco1qvV7gi jFDdg5RosOJojJvjx1WgoO lvbmVkIHRvIHJldmVhbCB0 EU0ztVtyjaUzDN3okzXmh0 VuOIE1aHXppXFlGFEhsq7j ZQTlaHKub5GpkHR8gUVmGS UmP7Usp08xKCDnYXKevIZq nWQ3NMKerH2dCsFfDGBfcv HQNydfXGOoSUeQWTD8ANOj amVzdGthLCBQQSAoQVNDUC kNClxwbGFpblxlcGljTmVz vDHtDhKnjEhhpM46QIDnlP YpEJP8VP6dHCMbaopxIAUx DZVaNBR0QOylvE76fZShXS FdHYIfwATneJ6JZCCgXTV3 GDbycI43gILfXU8WFIEiRS F3ZVPilEAcHOH1OJ1pbM6S fQ== Disclaimer (test code = y8mruXZlKZZpm9stJMZrxN [id number]) FuZzEwMzNcZnRuYmpcdWMx UCbhhtWkDTzrw7OdP8BkKx AwMFxhbnNpXGRlZmxhbmcx MHRpUEE9zdIyZFPtYYosLA VvBZhoIv9sqKSptZtgScNe YVZee9lujlNPGZytFxCkQ6 71APDzQSsyh5eyh4JpKAIf fOMfa4I7UQGYtubyzFx6zF ewC89id8I3LgjlB6deGQJe EJNuK3RlEU1iINPxRmg5EX R7IUC3ZYBzEEFzD8PjDK6f CTVhjZXbYOu7u7jvmGurHO CkJBY4n7ypNUbhaeYhGZ0a lt7qgRc0r4mcjhCsVORfVC CyeMLWTHElZ0DpbPcwDt6n jWw6eFqdInwcZBP4Djr9OK 2vfw72mbz2jWkwSXSzwlph HwR7NBpsLKJtgjjxIRa7ZP dvUNUkwOI4JDYhfMVmO4Su CCCtTP9sxlp2WAX0CHlpIM LeEsJ2SPAacGYcOHFieGjc CJpxq011DLZ8OwFpSZ3iI9 Ila2K0wV3peKWcCFCtgZUg YbJuGBEoam4hcZJyIZeza5 ImGOM7oiO6qFLmpVAuHPUd NK03Tkier7NrUwiyz3OpD9 0kqBG9ECwns6orBX0eJtV0 mcWoEKpsv3vohC0uXtQ8EG ehIB9lVF5iQUZrjZ8gaxas XHBnYnJkcmhlYWRccGdicm WqRs3mlHsbOIY0XQglZ6kb kJ3cCsU3DBegR5feyL4pYY p3HMsdkYQ2OSLkrZ1qAF6m ygzqw5oaLVvzTKsjMTQnod Y3xoB8EQExmHFwS5MazC7v KNWrUJ7obngnk2ndXKX1ZM zuGHLmXQW2HuMaVEIdr3Ch fdd9GeGli9VezOAcVJpyU6 0vw695IYUjsjYbK7pqeAXt mypabWRmozteEOcnkzG3QF YbyiKro6HqSZZeHJP0EBxz RCpjdXIwEWGjbZuve4neT8 RscGFyXHBsYWluXGYxXGZz MjBcbGFuZzEwMzNcaGljaF qdCHoqNlElZFEgPMymD8cy ZmIdJ5PtRJEfJlLwoKFpX7 ggVGhpcyByZXBvcnQgbWF5 BFwpY2x1FLMbwsDmfKa7tq BzHfNnJIPsJNG2KXfojCJe KUKke2IdojyrfOGfYi6qiS RdPQQwfP5wEDIlXWHwTExw SH1akIn1ZWUVfSKtiALlTz MNYEQwBS95alJwECWHzdyh z4E7LRaoJXGgk3SpkREbF3 iea4DzWQHvh09uZZ4wk9I8 c5tdIAH4MW0gy5AgHHNaqU KonGZnWRKkm5Camkfnn0Be JRHflrWbt2FhYRWxroRlhQ HpQMYkrmYdmu0fzrOgHJMs DSClR6KbmyzufWcumiNtFM Vgld2ypqOjZGQ8KBRHZUWb XLCvu6BcmC4tjVVZCVW0fZ Lxgj5zxrCToNUnZLUclp92 OSCfRT5bS4kbQUSkEDXukx RhxRXuj7OaPGFzfSO3cMXt AY4ZVeINt54lZURnRKJSvc TqMVWcrOgveQY7sxU7jU1e IChGREEpLlx+IFRoZSBGRE FnCQ8mnrCpt5JtwbGdxXys ENPwnAYyf5SdpKAom2SlwU qre4RilWXnvREtMF6uNIPn clxwYXIgVVRNQiBMYWJvcm R5l5ViULDxKADxTFC8gUyz iok2AEMzoF6sOUReU7fwcv fxPSwlWQWra9CnmT9fiCLM iOCie5QvtGWviMAAhVVmHI 3zawVyWBlMCUpTBMT9niHp QAQwi1KeYCtyK0pyF36jdI kqtRf5aMY6GZA7tD5iAcj+ IFxwYXJccGFyIEFwcHJvcH JhHSTajCietzWmE3VpbiGd tA7urAXdrbWbCT7vNA5nZ1 T7fVJqVYLpphBas3ejKBrl dmUgYmVlbiByZXZpZXdlZC Dsd3GzHMeaFAG3RZczfnYg bmNsdWRpbmcgSCZFLCBTcG LzjQJuUPU4LRqgntDgohSe SY9bbR7bnUgudK9kzQKitQ M4zfoeSCZeTJAejDlaHNAv CN1prQZnOHLejkGRdTnanG BexC2oW9PxABRoJYRjdv8o XEUouQ6zHOzyy0SlersxKY XxYOWlMOSzshRyor7uRYMu aXZYPR5VEGtciPXpm7Asau HqN4yMPRM5PSBgQlPjBxxz JQJplVLmeSYkAYYzwr39KG JvtV4wyTfkPBWrgL0anI3a pQinqX9dTkXlHeCmJUjzRN 7yWAVdA8gxgFEzHJFlOVJz J1kfUgCeaG1hbFtoOCglSi MlOqTzDPqxQVN4gN== Embedded Images (test code = 8371294161) [facility] - This is a pre-surgical type and screen. ONCE [id number] 17:52:02 Test Item Value Reference Range Interpretation Comments ABO & RH (test AB POSITIVE Performed at [facility] code = 20) Laboratory Serv [facility] [place] [address] s [id number] Free: [phone] A No. [id number] IAT (test code = Negative Performed a t [facility] 1185) Laboratory Serv [facility] [address] [place] [address] s [address]Iory Free: [phone] A No. [id number] [facility]2022-[facility]-14 23:13:17 Test Item Value Reference Range Interpretation Comments PALB (test code = 42385-5) 20.2 mg/dL 18.0-45.0 Lab Interpretation (test code = Normal 28295-7) [facility]field[facility] (75663) (ALB,T.PRO,BILI T,BU/BC,ALT,AST,ALK PHOS)2022-02-04 23:05:58 Test Item Value Reference Range Interpretation Comments TOTAL BILI (test code = 8256531181) 0.4 mg/dL 0.1-1.1 BILI UNCON (test code = 1090589678) 0.2 mg/dL 0.1-1.1 BILI CONJ (test code = 9571924864) 0.0 mg/dL 0.0-0.3 T PROTEIN (test code = 0475600365) 7.7 g/dL 6.3-8.2 ALBUMIN (test code = 3761572604) 3.4 g/dL 3.5-5.0 L ALK PHOS (test code = 6337900800) 65 U/L 34-122 ALTv (test code = 1742-6) 11 U/L 5-50 AST(SGOT) (test code = 7631012028) 23 U/L 13-40 Lab Interpretation (test code = Abnormal 73562-8) [facility] [id number] 03:38:00 Test Item Value Reference Range Interpretation Comments AB HEPATITIS A IGM NEGATIVE (test code = HAVMAB) AG HEPATITIS B NEGATIVE SCREEN NEGATIVE SURFACE (test code = HBSAG) AB HEPATITIS B CORE NEGATIVE IGM (test code = HBCMAB) AB HEPATITIS C (test <0.1 RATIO <0.8 S/C RAT ION 0.0 - code = HCVAB) 0.9 NEGATIVE <0.8INDETERMINA TE 0.8 - 0.9POSITI VE >0.9 [id number] 16:06:00 Test Item Value Reference Range Interpretation Comments SURG (test code = SURG) RUN DATE: 10/07/20 [facility] PAGE 1 RUN TIME: 1607 Specimen Inquiry RUN USER: INTERFACE PATIENT: FIONA SANCHES JR LOC: RoseYARITZAGHADAViviane U #: [id number] AGE/SX: 35/M ROOM: WINTER RE10/06/20REG DR: Sreekanth Garcia MD : 84 BED: 3 DIS: STATUS: ADM Arcadio TLOC: SPEC #: [id number] RECD: 10/06/20 STATUS: ELZA REQ #: [id number] MIRIAM: 10/06/[address]: Sreekanth Garcia MD ENTERED: 10/06/20 SP TYPE: SURG OTHR DR: DOES_NOT KNOW No Primary or Family Physician Juan Mcbride MD, Jignesh P MDORDERED: SURG PATH LVL 4 COPIES TO: DOES_NOT KNOW No Primary [place] [address] [place] [address] [email or web address] [address] [place] [address] Arnulfo Cormier MD [address] [place] [address] HISTOLOGY: TISSUE ID BLK PCS KANWAL LEV PROCEDURE DISPOSITION ____ ___ ___ ___ ESOPHAGUS, NOS A 1 2 PROCEDURES: SURG PATH LVL 4 (10/06/20) TISSUES: A. ESOPHAGUS, NOS - ESOPHAGUS BIOPSY CLINICAL HISTORY ESOPHAGEAL FOOD BOLUS, STRICTURE V DYSMOTILITY CONTINUED ON NEXT PAGE RUN DATE: 10/07/20 [facility] - LAB PAGE 2 RUN TIME: 1607 Specimen Inquiry RUN USER: INTERFACE SPEC #: [id number]:[id number] PATIENT: FIONA SANCHES JR #[id number] (Continued) CPT CODES CPT CODE(S): 39396 , , , , , , FINAL DIAGNOSIS Esophagus, biopsy: ACUTE ESOPHAGITIS WITH CANDIDIASIS NEGATIVE FOR INTESTINAL METAPLASIA, DYSPLASIA, OR MALIGNANCY GROSS DESCRIPTION Esophagus biopsy. Received in formalin are multiple minute fragments of suarez soft tissue, 0.1 - 0.3 cm. The specimen is filtered in a teabag and entirely submitted as A. ba/nr Grossing performed at [facility] Pathology, [address] [place] [address], [address], [place] [address]. Stablehand: Abner Steward M.D. MICROSCOPIC DESCRIPTION Esophagus biopsy. [...] indicativ e of the presence code = PZKHQ78TX) ofSARS-CoV -2 RNA, clinical correlation wit h [...] indicativ e of the presence code = QWMOA31EL) ofSARS-CoV -2 RNA, clinical correlation wit h [...] for the identification of SARS-CoV-2 RNA usingthe [employer] M2000 Sy stem under the FDA Emergen cy UseAuthorizatio n. The testing is perf ormed by personneltraine d in the procedures for the [employer] M2000 molecular diagnostic SARS-CoV-2 assa y in vitro. CBC W/AUTO [id number] 13:10:00 Test Item Value Reference Range Interpretation [...] NT WITH AUTO DIFFERENTI AL. CBC W/AUTO [id number] 13:10:00 Test Item Value Reference Range Interpretation [...] CONSISTA NT WITH AUTO DIFFERENTI AL. RBC [id number] 13:10:00 Test Item Value Reference Range Interpretation Comments PLATELET ESTIMATE DECREASED THOUSAND ADEQUATE PLAT ELET COUNT (test code = REVIEWED AND PLTEST) VERIFIED. PLATELET MORPHOLOGY NORMAL (test code = PLTMORPH) CBC W/AUTO [id number] 13:10:00 Test Item Value Reference Range Interpretation [...] NT WITH AUTO DIFFERENTI AL. COMPREHENSIVE METABOLIC [id number] 11:48:00 Test Item Value Reference Range Interpretation [...] TOTAL (test code = ALKP) CBC W/AUTO [id number] 11:33:00 Test Item Value Reference Range Interpretation [...] REQUIRED (test code = DIFF/SCN CRITERIA MDIFF) [id number] 04:59:00 Test Item Value Reference Range Interpretation Comments AMMONIA (test code = AMM) 56 mcMOL/L 11-32 H LACTIC [id number] 04:59:00 Test Item Value Reference Range Interpretation Comments LACTIC ACID (test code = LACT) 0.7 mmol/L 0.4-2.0 N GLUCOSE BEDSIDE [id number] 20:35:00 Test Item Value Reference Range Interpretation Comments GLUCOSE BEDSIDE TESTING (test code 109 mg/dL 70-110 N = GLUBED) GLUCOSE BEDSIDE [id number] 17:10:00 Test Item Value Reference Range Interpretation Comments GLUCOSE BEDSIDE TESTING (test code 105 mg/dL 70-110 N = GLUBED) - US ABDOMEN [id number] 16:39:00 [facility] 1985 Sex: M Name:FIONA SANCHES JR [facility] : 1985 Age/S: 35 / M [address] [address] Unit #: [id number] Loc: [place] [address] Phys: Matilda Kirk PA-C Acct: [id number] Dis Date: Status: ADM IN PHONE #: [phone] Exam Date: 10/06/2020 1327 FAX #: Reason: elevated lfts, evaluate for cirrhosis EXAMS: CPT: [id number] [facility] [address] RIGHT UPPER QUADRANT ULTRASOUND. CLINICAL HISTORY: Elevated liver function tests, evaluate for cirrhosis COMPARISON: CT chest dated October 06, 2020 COMMENT: Grayscale and selected color Doppler ultrasound of the right upper quadrant was performed. The liver demonstrates normal echogenicity. No focal mass or intrahepatic biliary ductal dilatation is seen. The rightlobe measures approximately 12.8 cm in craniocaudal dimension. Trace ascites is seen adjacent to thetip of the right hepatic lobe and in [...] Signed Report (CONTINUED) Name: FIONA SANCHES JR [place] : 1985 Age/S: 35 / M [address] [address] Unit #: [id number] Loc: [place] [address] Phys: Matilda Kirk PA-C Acct: [id number] Date: Status: ADM IN PHONE #: [phone] Exam Date: 10/06/2020 1510 FAX #: Reason: elevated lfts, evaluate for cirrhosis EXAMS: CPT: [id number] [place] ABDOMEN [facility] [address]3593 (Continued) CC: Sreekanth Garcia MD; Matilda Kirk Technologist: Rae Owenmntip Date/Time: 10/06/2020 (1639) [email or web address] PAGE 2 Signed Report Name: FIONA SANCHES JR [place] : 1985 Age/S: 35 / M [address] [address] Unit #: [id number] Loc: [place] [address] Phys: Matilda Kirk PA-C Acct: [id number] Dis Date: Status: ADM IN PHONE #: [phone] Exam Date: 10/06/2020 1513 FAX #: Reason: elevated lfts, evaluate for cirrhosis EXAMS: CPT: [id number] [place] ABDOMEN LTD [address]89 (Continued) Orig Print D/T: S: 10/06/2020(1643) Probe: PAGE 3 Signed ReportUA RFLX MICR CULT IF [id number] 15:23:00 Test Item Value Reference Range Interpretation [...] 92 mg/dL 70-110 N GLUBED) GLUCOSE BEDSIDE [id number] 13:37:00 Test Item Value Reference Range Interpretation Comments GLUCOSE BEDSIDE TESTING (test code = 58 mg/dL 70-110 L GLUBED) CREATINE KINASE (CK)2020-10-06 11:26:00 Test Item Value Reference Range Interpretation Comments CREATINE KINASE (CK) (test code = 287 Unit/L 26-192 H CK) [id number] 11:26:00 Test Item Value Reference Range Interpretation Comments AMYLASE (test code = JOSE CARLOS) 120 Unit/L 25-115 H [id number] 11:26:00 Test Item Value Reference Range Interpretation Comments LIPASE (test code = LIP) 112 Unit/L 114-286 L CBC W/AUTO [id number] 09:58:00 Test Item Value Reference Range Interpretation [...] DIFF/SCN CRITERIA (test code = MDIFF) WBC [id number] 09:58:00 Test Item Value Reference Range Interpretation [...] NORMAL (test code = PLTMORPH) CBC W/AUTO [id number] 09:55:00 Test Item Value Reference Range Interpretation [...] DIFF/SCN CRITERIA (test code = MDIFF) WBC [id number] 09:55:00 Test Item Value Reference Range Interpretation Comments SEGMENTED NEUTROPHILS (test code = SEG) % 40-75 LYMPHOCYTE (test code = LYMPH) % 12.6-43.5 CBC W/AUTO [id number] 09:55:00 Test Item Value Reference Range Interpretation [...] DIFF/SCN CRITERIA (test code = MDIFF) WBC [id number] 09:55:00 Test Item Value Reference Range Interpretation Comments SEGMENTED NEUTROPHILS (test code = SEG) % 40-75 LYMPHOCYTE (test code = LYMPH) % 12.6-43.5 COMPREHENSIVE METABOLIC [id number] 09:14:00 Test Item Value Reference Range Interpretation [...] TOTAL (test code = ALKP) CBC W/AUTO [id number] 09:02:00 Test Item Value Reference Range Interpretation [...] CRITERIA (test code = MDIFF) GLUCOSE BEDSIDE [id number] 06:41:00 Test Item Value Reference Range Interpretation Comments GLUCOSE BEDSIDE TESTING (test code = 65 mg/dL 70-110 L GLUBED) COVID 19 INHOUSE [id number] 05:40:00 Test Item Value Reference Range Interpretation Comments COVID 19 INHOUSE AG NEGATIVE Negative Per manu facturer, (test code = negative result s should [id number]) be treated aspr esumptive and, if inconsi [...] co nsistent with COVID-19. - CT CHEST [id number] 03:30:00 [facility] 1985 Sex: M Name: FIONA SANCHES JR [facility] : 1985 Age/S: 35 / M [address] [address] Unit #: [id number]: [place]sequ[place] [address] Phys: Scott Person MD Acct: [id number] Dis Date: Status: REG ER PHONE #:[phone] Exam Date: 10/06/2020 0240 FAX #: Reason: possible esophageal pneumatosis EXAMS: CPT: [id number] CT CHEST W/CONTRAST 41241 DICTATION LOCATION: H48 HISTORY: Male, 35 years [...] JR : 1985 Age/S: 35 / M [address] Unit #: [id number] Loc: [place] [address] Phys: Scott Person MD Acct: [id number] Dis Date: Status: REG ER PHONE #: [phone] Exam Date: 10/06/2020 0245 FAX #: Reason: possible esophageal pneumatosis EXAMS: CPT: [id number] CT CHEST W/CONTRAST 51802 (Continued) (i.e. scleroderma or dermatomyositis). Infiltrative neoplasm is included differential but I do not identify a distinct mass. 2. No evidence for esophageal pneumatosis or pneumomediastinum. 3. Multi lobar groundglass interstitial pneumonia. Commonly reported imaging features of COVID-19 pneumonia arepresent. Other processes such as aspiration pneumonia, influenza pneumonia and organizing pneumonia,as seen with drug toxicity and connective tissue disease, can cause a similar imaging pattern. at 0330 Reported and signed by: Alyx Stacy MD CC: Technologist:Valentine Momin, RT(R)(CT); CTDI: DLP: Trnscb Date/Time: 10/06/2020 (329) [email or web address] Orig Print D/T: S: 10/06/2020 (033) PAGE 2 Signed Report- CT NECK W/[id number] 03:11:00[facility] : 1985 Sex: M Name: FIONA SANCHES JR [place] : 1985 Age/S: 35 / M [address] [address] Unit #: [id number]: [place] [address] Phys: Scott Person MD Acct: [id number] Dis Date: Status: REG ER PHONE #:[phone] Exam Date: 10/06/2020 0250 FAX #: Reason: possible esophageal pneumatosis EXAMS: CPT: [id number] CT NECK W/CONTRAST 25518 EXAM: - CT NECK W/CONTRAST LOCATION: H57 INDICATION: 35 years -old Male with possible esophageal pneumatosis COMPARISON: None available at time of interpretation. TECHNIQUE: Contrast enhanced CT of the neck with sagittal and coronal reformats. This exam was performed according to our departmental dose- optimization program, which includes automated exposure control, adjustment [...] Signed Report (CONTINUED) Name: FIONA SANCHES JR [place] : 1985Age/S: 35 / M [address] Unit #: [id number] Loc: [place] [address] Phys: [facility] Person [id number] Dis Date: Status: REG ER PHONE #: [phone] Exam Date: 10/06/2020 0250 FAX #:Reason: possible esophageal pneumatosis EXAMS: CPT: [id number] CT NECK W/CONTRAST 49835 (Continued) CC: Technologist:Valentine Momin, RT(R)(CT); CTDI: DLP: Trnscb Date/Time: 10/06/2020 (310) [email or web address] Orig Print D/T: S: 10/06/2020 (313) PAGE 2 Signed ReportBASIC METABOLIC [id number] 02:14:00 Test Item Value Reference Range Interpretation [...]
[2022-06-19 11:33] LABS: Absolute Lymphocytes (CBC) 1.7 K/uL (0.7-4.9); Hematocrit 32.1 % (39.6-49.0); Lymphocytes % 28.2 % (15.3-44.8); MCV 87.2 fL (80-100); MPV 8.6 fL (7.6-11.3); Protime INR 1.24; RBC Red Blood Cell Count 3.68 M/uL (4.33-5.43)
[2022-06-19] MEDS ORDERED: ONDANSETRON 4 MG/2 ML VIAL ONE (11:41)
[2022-06-19] MEDS ORDERED: FAMOTIDINE 20 MG/2 ML VIAL IV ONE (11:41)
[2022-06-19 11:47] LABS: AST/SGOT 6 U/L (15-37); Albumin 1.8 g/dL (3.4-5.0); Alkaline Phosphatase 109 U/L (45-117); BUN Blood Urea Nitrogen 10 mg/dL (7-18); Bicarbonate 26 mmol/L (21-32); Bilirubin Direct 0.2 mg/dL (0-0.2); Bilirubin Total 0.4 mg/dL (0.2-1.0); Glomerular Filtration Rate 123 ml/min (=/>90); Glucose Level 87 mg/dL (74-106); Lipase 43 U/L (73-393); Magnesium 2.4 mg/dL (1.8-2.4); Protein, Total 6.5 g/dL (6.4-8.2); Sodium Level 143 mmol/L (136-145); Troponin High Sensitivity 3.9 pg/mL (<58.9)
[2022-06-19 11:48] LABS: ALT/SGPT < 10 U/L (12-78)
[2022-06-19] MEDS ORDERED: POTASSIUM 25 MEQ EFFERV TAB ONE (12:10)
--- NOTE | 2022-06-19 12:33 | RAD REPORT ---
EXAM DESCRIPTION: CT - CTHCSPWOC - 06/19/2022 12:21 pm CLINICAL HISTORY: Trauma, head and neck injury. syncope COMPARISON: Head C Spine Mpr Wo Con dated 05/04/2022; Head C Spine Mpr Wo Con dated 08/18/2021; Head C Spine Mpr Wo Con dated 06/12/2021 TECHNIQUE: Axial 5 mm thick images of the head were obtained. Axial 2 mm thick images of the cervical spine were obtained with sagittal and coronal reconstruction images generated and reviewed. All CT scans are performed using dose optimization technique as appropriate and may include automated exposure control or mA/KV adjustment according to patient size. FINDINGS: CT HEAD WITHOUT CONTRAST: No acute hemorrhage, hydrocephalus or extra-axial collection is identified.No areas of brain edema or midline shift. The paranasal sinuses and mastoids are clear.The calvarium is intact. CT CERVICAL SPINE WITHOUT CONTRAST: No fracture or subluxation.No prevertebral soft tissues swelling is identified. IMPRESSION: No acute intracranial or cervical spine findings.
--- NOTE | 2022-06-19 13:03 | RAD REPORT ---
EXAM DESCRIPTION: CTAbdomen Pelvis Wo Contrast - 06/19/2022 12:23 pm CLINICAL HISTORY: abdominal pain COMPARISON: Abdomen Pelvis Wo Contrast dated 01/27/2022; Abdomen Pelvis W Contrast dated 01/10/2022 ; Abdomen Pelvis W Contrast dated 10/12/2021; Abdomen Pelvis W Contrast dated 09/18/2021 TECHNIQUE: CT of the abdomen and pelvis was performed. All CT scans are performed using dose optimization technique as appropriate and may include automated exposure control or mA/KV adjustment according to patient size. FINDINGS: Lower chest: The esophagus is distended with fluid and particulate matter. Liver: No acute abnormality or suspicious lesions. Biliary: No biliary ductal dilatation. Stomach: The gastrostomy tube balloon is located deep within the stomach and should be retracted. Duodenum: No significant focal abnormality. Pancreas: No significant abnormality. Spleen: No significant abnormality. Adrenal: No suspicious lesions. Kidney/ureter: No hydronephrosis. No renal calculi. Retroperitoneum: No retroperitoneal adenopathy. Vascular: No aneurysm. Bowel: No significant focal abnormality. Moderate colonic stool. Peritoneum: No ascites or free air. Bladder: Grossly unremarkable. Reproductive: Scrotal edema. Bones: No acute fracture. Other: n/a IMPRESSION: No acute intra-abdominal or pelvic finding. The gastrostomy balloon is presumably locate d deep within the stomach. It should be retracted for more optimal positioning. Fluid/particulate mat ter again noted in the distal esophagus.
--- NOTE | 2022-06-19 13:09 | RAD REPORT ---
EXAM DESCRIPTION: RAD - Chest Single View - 06/19/2022 12:49 pm CLINICAL HISTORY: syncope COMPARISON: <Comparisons> FINDINGS: Lines: None. Lungs: No evidence of edema or pneumonia. Pleural: No significant pleural effusions or pneumothorax. Cardiac: The heart size is within normal limits. Bones: No acute fractures. Other: IMPRESSION: No acute cardiopulmonary disease.
--- NOTE | 2022-06-19 13:18 | ER ---
Nurse's Notes [facility] Name: Tahir Ag Jr Age: 37 yrs Sex: Male : 1985 Arrival Date: 06/19/2022 Time: 10:33 Bed 16 Private MD: Diagnosis: Hypokalemia;Abdominal pain, unspecified;Syncope;Nausea with vomiting, unspecified Presentation: 06/19 10:36 Chief complaint: Patient states: Pt states he feels like he passed out 30 minutes prior ss to arrival. Pt states his water well has been out for two days, so he has not drank much water. Coronavirus screen: Client denies travel out of the [place] in the last 14 days. Ebola Screen: Patient denies exposure to infectious person. Patient denies travel to an Ebola-affected area in the 21 days before illness onset. Initial Sepsis Screen: Does the patient meet any 2 criteria? No. Patient's initial sepsis screen is negative. Does the patient have a suspected source of infection? No. Patient's initial sepsis screen is negative. Risk Assessment: Do you want to hurt yourself or someone else? Patient reports no desire to harm self or others. Onset of symptoms was June 19, 2022. 10:36 Method Of Arrival: EMS: [facility] ss 10:36 Acuity: MARTINA 3 ss 10:38 Note Pt states he lives with his parents and is able to get bottle water. Pt is ss drinking an orange soda in triage. Triage Assessment: 11:00 General: Appears in no apparent distress. Behavior is calm, cooperative. Neuro: Reports jg9 headache occipital area. Historical: - Allergies: 10:37 No Known Allergies; ss - PMHx: 10:37 achalasia; Bipolar disorder; Diabetes - NIDDM; Hernia; Hypertension; Schizophrenia; ss Seizure; - PSHx: 10:37 gastrostomy tube; ss - Immunization history:: Client reports receiving the 2nd dose of the Covid vaccine. - Social history:: Smoking status: Patient reports the use of cigarette tobacco products, smokes one pack cigarettes per day. Screenin:18 Abuse screen: Denies threats or abuse. Denies injuries from another. Nutritional jg9 screening: chronic poor dietary intake. Tuberculosis screening: No symptoms or risk factors identified. Fall Risk Fall in past 12 months (25 points). Assessment: 11:00 Pain: Complains of pain in scalp. Neuro: Level of Consciousness is awake, alert, obeys jg9 commands. Cardiovascular: Rhythm is sinus bradycardia. 11:50 Reassessment: Patient refusing to stay wanted IV removed so he could leave-provider jg9 notified. 12:00 Reassessment: Patient back in room reports the doctor told him to come back. jg9 12:40 Reassessment: Patient in bed in no distress requesting perez mist or apple juice. jg9 12:52 Reassessment: This nurse was with a patient in 13 when I could see this patient walking jg9 by towards the exit, upon exiting I noticed he was not in his room so I asked staff if they saw this patient at which time they noted that he walked out again-provider notified. Vital Signs: 10:36 Resp 15; Weight 44.45 kg; Height 5 ft. 5 in. (165.10 cm); ss 10:38 BP 99 / 55; Pulse 88; Pulse Ox 98% on R/A; ss 10:38 Temp 97.9(TE); ss 11:15 BP 102 / 74; Pulse 53; Resp 17 S; Pulse Ox 100% on R/A; jg9 10:36 Body Mass Index 16.31 (44.45 kg, 165.10 cm) ss ED Course: 10:33 Patient arrived in ED. as 10:37 Keshawn Schilling PA is PHCP. cp 10:37 Omari Wang MD is Attending Physician. cp 10:37 Triage completed. ss 10:37 Arm band placed on right wrist. ss 10:51 Kandace Rapp, MARTINA is Primary Nurse. jg9 11:15 Inserted saline lock: 22 gauge in right forearm, using aseptic technique. Blood jg9 collected. 11:18 Patient has correct armband on for positive identification. Bed in low position. Call jg9 light in reach. Side rails up X 1. 11:53 No provider procedures requiring assistance completed. jg9 12:18 CT Abd/Pelvis - Without Contrast In Process Unspecified. EDMS 12:23 CT Head C Spine In Process Unspecified. EDMS 12:51 XRAY Chest (1 view) In Process Unspecified. EDMS Administered Medications: 11:33 Drug: Zofran (Ondansetron) 4 mg Route: IVP; Site: right forearm; jg9 12:03 Follow up: Response: No adverse reaction jg9 11:36 Drug: Pepcid (famotidine) 20 mg Route: IVP; Site: right forearm; jg9 12:03 Follow up: Response: No adverse reaction jg9 12:03 Not Given (Patient Refused): Potassium Chloride 20 mEq IV at calculated rate once; jg9 administer over 1-2 hours 12:03 Drug: Potassium Effervescent Tablet 50 mEq Route: PO; jg9 13:05 Follow up: Response: No adverse reaction jg9 Point of Care Testin:19 n/a jg9 Ranges: Outcome: 13:17 Discharge ordered by MD. blandon 13:31 Patient left the ED. eb Signatures: Dispatcher [employer] EDMS Rneee Bell Shelby, RN RN Keshawn Huntley PA PA cp Botello, Elizabeth eb Gilmore, Jennifer, RN RN jg9 Corrections: (The following items were deleted from the chart) 12:07 11:53 Eloped after seeing physician Time discovered patient gone: June 19, 2022 at jg9 11:45 jg9 12:08 12:07 Eloped jg9 jg9
--- NOTE | 2022-06-19 13:18 | EDPHYS ---
Physician Documentation [facility] Name: Tahir Ag Jr Age: 37 yrs Sex: Male : 1985 Arrival Date: 06/19/2022 Time: 10:33 Bed 16 Private MD: ED Physician Omari Wang HPI: 06/19 11:00 This 37 yrs old Black Male presents to ER via EMS with complaints of Syncope. cp 11:00 The patient has experienced syncope, lost consciousness. Onset: The symptoms/episode cp began/occurred today. Duration: This was a single episode, that lasted an unknown period of time. Associated injury: Head/face: left side of the back of head and right side of the back of head, contusion. Associated signs and symptoms: Pertinent positives: abdominal pain, headache, vomiting, Pertinent negatives: chest pain, diarrhea. Historical: - Allergies: 10:37 No Known Allergies; ss - PMHx: 10:37 achalasia; Bipolar disorder; Diabetes - NIDDM; Hernia; Hypertension; Schizophrenia; ss Seizure; - PSHx: 10:37 gastrostomy tube; ss - Immunization history:: Client reports receiving the 2nd dose of the Covid vaccine. - Social history:: Smoking status: Patient reports the use of cigarette tobacco products, smokes one pack cigarettes per day. ROS: 11:03 Constitutional: Positive for poor PO intake, Negative for body aches, chills, fever. cp 11:03 Eyes: Negative for injury, pain, redness, and discharge. cp 11:03 ENT: Negative for drainage from ear(s), ear pain, sore throat, difficulty swallowing, difficulty handling secretions. 11:03 Cardiovascular: Negative for chest pain, palpitations. 11:03 Respiratory: Negative for cough, shortness of breath, wheezing. 11:03 Abdomen/GI: Positive for abdominal pain, nausea and vomiting, Negative for diarrhea, constipation, hematemesis, black/tarry stool, rectal bleeding. 11:03 Neuro: Positive for headache, syncope, Negative for altered mental status. 11:03 All other systems are negative. Exam: 11:05 ECG was reviewed by the Attending Physician. cp 11:10 Constitutional: The patient appears in no acute distress, alert, awake, cp non-diaphoretic, non-toxic, well developed, unkempt. 11:10 Head/face: Noted is tenderness, that is mild, of the left side of the back of head and cp right side of the back of head. 11:10 Eyes: Periorbital structures: appear normal, Pupils: equal, round, and reactive to light and accomodation, Extraocular movements: intact throughout, Conjunctiva: normal, no exudate, no injection, Sclera: no appreciated abnormality, Lids and lashes: appear normal, bilaterally. 11:10 ENT: External ear(s): are unremarkable, Ear canal(s): are normal, clear, TM's: dullness, bilaterally, Nose: is normal, Mouth: Lips: moist, Oral mucosa: moist, Posterior pharynx: Airway: no evidence of obstruction, patent. 11:10 Neck: ROM/movement: is normal, is supple, without pain, no range of motions limitations. 11:10 Chest/axilla: Inspection: Palpation: is normal, no crepitus, no tenderness. 11:10 Cardiovascular: Rate: bradycardic, Rhythm: regular, Edema: is not appreciated, JVD: is not appreciated. 11:10 Respiratory: the patient does not display signs of respiratory distress, Respirations: normal, no use of accessory muscles, no retractions, labored breathing, is not present, Breath sounds: are clear throughout, no decreased breath sounds, no stridor, no wheezing. 11:10 Abdomen/GI: Inspection: gastrostomy tube noted LUQ, Bowel sounds: active, all quadrants, Palpation: soft, in all quadrants, mild abdominal tenderness, in all quadrants, rebound tenderness. 11:10 Back: pain, is absent, ROM is normal. 11:10 Musculoskeletal/extremity: Extremities: all appear grossly normal, with no appreciated pain with palpation. 11:10 Neuro: Orientation: is normal, Mentation: is normal, Motor: moves all fours, strength is normal, Sensation: is normal. Vital Signs: 10:36 Resp 15; Weight 44.45 kg; Height 5 ft. 5 in. (165.10 cm); ss 10:38 BP 99 / 55; Pulse 88; Pulse Ox 98% on R/A; ss 10:38 Temp 97.9(TE); ss 11:15 BP 102 / 74; Pulse 53; Resp 17 S; Pulse Ox 100% on R/A; jg9 10:36 Body Mass Index 16.31 (44.45 kg, 165.10 cm) ss MDM: 10:54 Patient medically screened. 13:17 Data reviewed: vital signs, nurses notes, lab test result(s), EKG, radiologic studies, cp doppler. 13:17 Test interpretation: by ED physician or midlevel provider: ECG. ED course: VSS. Patient cp given oral potassium to ingest for replacement. Patient left ED prior to results of CT. No acute findings noted on CT reports. Patient may return to ED worsening symptoms. 06/19 10:57 Order name: Basic Metabolic Panel; Complete Time: 11:56 cp 06/19 11:56 Interpretation: Normal except: K 2.0; CL 111; CA 7.7. cp 06/19 10:57 Order name: CBC with Diff; Complete Time: 11:56 cp 06/19 11:56 Interpretation: Normal except: RBC 3.68; HGB 11.1; HCT 32.1; RDW 16.3. 06/19 10:57 Order name: LFT's; Complete Time: 11:56 cp 06/19 12:58 Interpretation: Normal except: AST 6; ALT < 10; ALB 1.8; GLOB 4.7; A/G 0.4. cp 06/19 10:57 Order name: Magnesium; Complete Time: 11:56 cp 06/19 10:57 Order name: PT-INR; Complete Time: 11:56 cp 06/19 10:57 Order name: Troponin HS; Complete Time: 11:56 cp 06/19 10:57 Order name: XRAY Chest (1 view); Complete Time: 13:15 cp 06/19 10:57 Order name: Lipase; Complete Time: 11:56 cp 06/19 12:12 Order name: CT Head C Spine; Complete Time: 12:36 cp 06/19 12:37 Interpretation: Reviewed report. 06/19 12:13 Order name: CT Abd/Pelvis - Without Contrast; Complete Time: 13:15 cp 06/19 10:57 Order name: EKG; Complete Time: 10:58 cp 06/19 10:57 Order name: Cardiac monitoring; Complete Time: 11:20 cp 06/19 10:57 Order name: EKG - Nurse/Tech; Complete Time: 11:20 cp 06/19 10:57 Order name: IV Saline Lock; Complete Time: 11:20 cp 06/19 10:57 Order name: Labs collected and sent; Complete Time: 11:20 cp 06/19 10:57 Order name: O2 Sat Monitoring; Complete Time: 11:20 cp EC:05 Rate is 52 beats/min. Rhythm is regular. [place] interval is normal. QRS interval is normal. cp QT interval is normal at 498 msec. Interpreted by me. Reviewed by me. Administered Medications: 11:33 Drug: Zofran (Ondansetron) 4 mg Route: IVP; Site: right forearm; jg9 12:03 Follow up: Response: No adverse reaction jg9 11:36 Drug: Pepcid (famotidine) 20 mg Route: IVP; Site: right forearm; jg9 12:03 Follow up: Response: No adverse reaction jg9 12:03 Not Given (Patient Refused): Potassium Chloride 20 mEq IV at calculated rate once; jg9 administer over 1-2 hours 12:03 Drug: Potassium Effervescent Tablet 50 mEq Route: PO; jg9 13:05 Follow up: Response: No adverse reaction jg9 Point of Care Testin:19 n/a jg9 Ranges: Critical Glucose Levels:Adult <50 mg/dl or >400 mg/dl <40 mg/dl or >180 mg/dl Disposition Summary: 06/19/22 13:17 Discharge Ordered Location: Home cp Problem: new cp Symptoms: have improved cp Condition: Stable cp Diagnosis - Hypokalemia cp - Abdominal pain, unspecified cp - Syncope cp - Nausea with vomiting, unspecified cp Followup: cp - With: Private Physician - When: 1 - 2 days - Reason: Recheck today's complaints Discharge Instructions: - Discharge Summary Sheet cp - Abdominal Pain, Adult cp - Nausea and Vomiting, Adult cp - Syncope cp - Hypokalemia cp - Potassium Content of Foods cp Forms: - Medication Reconciliation Form cp - Thank You Letter cp - Antibiotic Education cp - Prescription Opioid Use cp Prescriptions: - Zofran 4 mg Oral Tablet - take 1 tablet by ORAL route every 12 hours As needed; 20 tablet; Refills: 0, cp Product Selection Permitted Addendum: 06/20/2022 17:16 Co-signature as Attending Physician, Omari Wang MD. r n Signatures: Dispatcher [employer] EDMS Omari Wang MD MD rn Smirch, Shelby, RN RN Keshawn Huntley PA PA Kandace Cabrales RN RN jg9 Corrections: (The following items were deleted from the chart) 06/19 11:20 10:57 Oxygen Per Protocol ordered. cp jg9 11:56 11:56 Normal except: K 2.0; CL 111. cp cp 11:58 10:58 Head C Spine MPR Wo Con+CT.RAD.BRZ ordered. EDMS EDMS 11:58 10:58 Abdomen Pelvis W Con+CT.RAD.BRZ ordered. EDMS EDMS
[2022-06-19 15:04] VITALS: TEMP 97.9
[2022-06-19 15:07] VITALS: BP 102/74; O2SAT 100
--- NOTE | 2022-06-21 10:23 | EKG ---
Test Date: 2022-06-19 Test Time: 11:00:38 [employer]: DARCIE MEASUREMENT RESULTS: Intervals: Rate: 52 MO: 132 QRSD: 90 QT: 498 QTc: [address] [place]: P: 83 MO: 132 QRS: 79 T: 63 INTERPRETIVE STATEMENTS: Sinus bradycardia Otherwise normal ECG Compared to ECG 05/29/2022 09:23:08 Sinus rhythm no longer present Electronically Signed On 06-21-22 10:20:13 CDT by Grant Bill
== END 2022-06-19 13:31 | disposition home or self-care (01) ==
LOC: ER 10:32
DX: R55 Syncope and collapse (principal); E87.6 Hypokalemia; R11.2 Nausea with vomiting, unspecified; R10.9 Unspecified abdominal pain; I10 Essential (primary) hypertension; F20.9 Schizophrenia, unspecified; F17.210 Nicotine dependence, cigarettes, uncomplicated
CPT/HCPCS: 93005; 85025; 80048; 36415; 83735; 85610; 80076; 84484; 83690; 70450; 72125; 74176; 71045; 96375; 96374; 99284; J2405

== ENCOUNTER 2022-06-21 12:46 | Inpatient (IN) | payer OTHER ==
--- OUTSIDE RECORDS SUMMARY | 2022-06-21 12:53 | XMS REPORT | Continuity of Care Document ---
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 ALMEIDA [facility] [id number] Univers 16:01:00 12:18:00 AMELIE ALMEIDA ity [facility] 2022-04-26 2022-05-04 Hospital Charlotte Miranda [facility] 1.2.840.11 [id number] Univers 16:01:00 12:18:00 [facility] 350.1. 13.10 ity of [place] 4.2.7.2.686 [facility] [id number] [address] ([facility]) 2022-04-28 2022-04-28 Anesthesia Gayle Lino 1.2.840.1 1 [id number] Univers 09:38:00 10:28:00 Event Radu Schroeder 59075.1.1 ity of 3.104.2.7 [place] .3.457016 Medica l .8 [place] 2022-04-28 2022-04-28 [facility] 1.2.840.114 [id number] Univers 09:30:00 10:01:00 Derrell Watters SPECIALTY 350.1.13.10 ity of CARE 4.2.7.2.686 [facility] [place] [facility] AT [id number] Oh dical [place] 020 [facility] 2022-04-27 2022-04-27 Anesthesia Alex Fawn 1.2.840.1 [id number] Univers 12:29:50 12:29:50 Event Sabrina Sanchez 70993.1.1 ity of 3.104.2.7 [place] .3.708330 Medica l .8 [place] 2022-04-26 2022-04-26 Travel 1.2.840.1 1.2.256.291 [id number] Univers 00:00:00 00:00:00 33636.1.1 350.1.13.10 ity of 3.104.2.7 4.2.7.3.698 [facility] .3.392343 084.8 Medica l .8 [place] 2022-04-05 2022-04-05 Telephone Mitchell, 1.2.840.1 [id number] Univers 00:00:00 00:00:00 Mitzy 84352.1.1 ity of 3.104.2.7 [place] .3.936420 Medica l .8 Branch 2022-04-02 2022-04-02 Office [place], 1.2.840.7 [id number] [facility] 11:45:00 11:45:00 Visit Negrito 89145.1.1 ity of [place] 3.104.2.7 [place] .3.392282 Medica l .8 Branch 2022-04-02 2022-04-02 Travel 1.2.840.1 1.2.314.574 [id number] Univers 00:00:00 00:00:00 13570.1.1 350.1.13.10 ity of 3.104.2.7 4.[place]7.3.698 [place] .3.623392 084.8 Medica l .8 [place] 2022-03-24 2022-03-24 Telephone Whitlock, Gal 1.2.840.2 [id number] Univers 00:00:00 00:00:00 85430.1.1 ity of 3.104.2.7 [place] .3.189989 Medica l .8 [place] 2022-03-19 2022-03-19 Telephone Whitlock, Gal 1.2.840.3 [id number] Univers 00:00:00 00:00:00 60708.1.1 ity of 3.104.2.7 [place] .3.608481 Medica l .8 [place] 2022-03-12 2022-03-12 Hospital [place], 1.2.840.3 [id number] Univers 08:13:00 16:20:00 Encounter Negrito 13284.1.1 it y of [place] 3.104.2.7 [place] .3.518171 Medica l .8 [place] 2022-03-12 2022-03-12 Anesthesia Carley Fregoso 1.2.840.1 [id number] Univers 09:44:00 12:14:00 Event Richard Granados 04233.1.1 ity of 3.104.2.7 [place] .3.725342 Medica l .8 Branch 2022-03-12 2022-03-12 Surgery [place], 1.2.840.5 [id number] Univers 09:54:00 12:12:00 Negrito 86416.1.1 ity of [place] 3.104.2.7 [place] .3.677594 Medica l .8 Branch 2022-03-09 2022-03-09 Laboratory Negrito Simeon 1.2.840.2 [id number] Univers 10:15:00 10:30:00 Only Only, Adc Test 04626.1.1 ity of 3.104.2.7 [place] .3.262753 Medica l .8 Branch 2022-03-09 2022-03-09 Travel 1.2.840.1 1.2.101.315 [id number] Univers 00:00:00 00:00:00 78709.1.1 350.1.13.10 ity of 3.104.2.7 4.[place].7.3.698 [place] .3.998329 084.8 Medica l .8 [place] 2022-03-05 2022-03-05 Office [place], 1.2.840.7 [id number] Univers 10:15:00 12:01:28 Visit Negrito 65547.1.1 ity of [place] 3.104.2.7 [place] .3.854151 Medica l .8 [place] 2022-02-25 2022-02-25 Hospital Kamlesh, Gal 1.2.840.3 [id number] Univers 08:04:00 13:21:00 Sonya 49906.1.1 it y of 3.104.2.7 [place] .3.570687 Medica l .8 Branch 2022-02-25 2022-02-25 Surgery Whitlock, Gal 1.2.840.5 [id number] Univers 09:35:00 12:45:00 55311.1.1 ity of 3.104.2.7 [place] .3.049882 Medica l .8 Branch 2022-02-25 2022-02-25 Anesthesia Yung Arita 1.2.840.8 [id number] Univers 11:53:00 12:33:00 Event Francis Wong 35517.1.1 ity of 3.104.2.7 [place] .3.907389 Medica l .8 Branch 2022-02-24 2022-02-24 Travel 1.2.840.1 1.2.486.899 [id number] Univers 00:00:00 00:00:00 30106.1.1 350.1.13.10 ity of 3.104.2.7 4.2.7.3.698 [place] .3.112532 084.8 Medica l .8 Branch 2022-02-18 2022-02-18 Orders Doctor 1.2.840.9 [id number] Univers 00:00:00 00:00:00 Only Unassigned, 85247.1.1 ity of [place] 3.104.2.7 [place] .3.947531 Medica l .8 Branch 2022-02-15 2022-02-[address] [facility], 1.2.840.0 [id number] Univers 00:00:00 00:00:00 Stephanie Rose 05787.1.1 it y of 3.104.2.7 [place] .3.910672 Medica l .8 Branch 2022-02-09 2022-02-[address] [facility], 1.2.840.6 [id number] Univers 00:00:00 00:00:00 Stephanie L 66852.1.1 it y of 3.104.2.7 [place] .3.514615 Medica l .8 Branch 2022-02-08 2022-02-08 Case [place], 1.2.840.1 [id number] Univers 00:00:00 00:00:00 Management Stephanie Rose 51036.1.1 ity of 3.104.2.7 [place] .3.778057 Medica l .8 Branch 2022-02-04 2022-02-04 [facility] 1.2.840.3 [id number] Univers 15:17:56 23:59:00 Encounter 74247.1.1 it y of 3.104.2.7 [place] .3.748341 Medica l .8 Branch 2022-02-04 2022-02-04 Head Banquet Waitress Nathanael Whitlock 1.2.840.0 [id number] [facility] 15:30:00 15:47:42 Visit [facility] 46287.1.1 ity of 3.104.2.7 [place] .3.028799 Medica l .8 Branch 2022-02-04 2022-02-04 Office Kamlesh Nathanael 1.2.840.0 [id number] [facility] 13:30:00 14:38:59 Visit 23039.1.1 ity of 3.104.2.7 [place] .3.778523 Medica l .8 Branch 2022-02-04 2022-02-04 Travel 1.2.840.1 1.2.046.411 [id number] Univers 00:00:00 00:00:00 74399.1.1 350.1.13.10 ity of 3.104.2.7 4.[place].7.3.698 [place] .3.218275 084.8 Medica l .8 [place] 2021-05-25 2021-05-26 Emergency Janene Taylor [facility] 1.2.840.114 [id number] 18:28:00 00:07:00 Misa Howe 350.1.13.10 [place] 4.2.7.2.686 [place] [id number] 2020-12-19 2020-12-19 Orders Doctor NEGRITO 1.2.840.114 [id number] 00:00:00 00:00:00 Only Unassigned, NAMRATA 350.1.13.10 Point [facility] 4.2.7.2.686 [id number] 009 2020-11-28 2020-11-28 Patient Sharon Bunn 1.2.840.114 [id number] 00:00:00 00:00:00 Outreach Micki Jo 350.1.13.10 Daniela 4.2.7.2.686 [id number] 2020-11-27 2020-11-27 Telephone Angie Aguilar 1.2.380.439 [id number] 00:00:00 00:00:00 Gianni Teresa 350.1.13.10 [facility] 4.2.7.2.686 [id number] 093 2020-10-06 2020-10-06 Outpatient BEE Garcia [id number] [facility] 23:33:00 23:33:00 [facility] [id number] [facility] Results Test Description Test Time Test Comments Results Result Comments Source COMP. METABOLIC PANEL (92252) 2022-05-27 01:04:32 Test Item Value Reference Range Interpretation Comme nts NA (test code = 9885322120) 135 mmol/L 135-145 K (test code = 0242233123) 2.3 mmol/L 3.5-5 LL CL (test code = 5311289985) 102 mmol/L 98-108 CO2 TOTAL (test code = 1369261980) 21 mmol/L 23-31 L AGAP (test code = 0036431757) 2-16 BUN (test code = 2571230766) 5 mg/dL 7-23 L GLUCOSE (test code = 6828131182) 142 mg/dL 70-110 H CREATININE (test code = 0.68 mg/dL 0.6-1.25 8032500529) TOTAL BILI (test code = 0.6 mg/dL 0.1-1.3 7272675615) CALCIUM (test code = 8074766662) 7.9 mg/dL 8.6-10.6 L T PROTEIN (test code = 1883279053) 7.3 g/dL 6.3-8.2 ALBUMIN (test code = 2158843283) 3.2 g/dL 3.5-5 L ALK PHOS (test code = 2245672251) 100 U/L 34-122 ALTv (test code = 1742-6) 13 U/L 5-50 AST(SGOT) (test code = 0177572327) 17 U/L 13-40 eGFR (test code = 5041619613) mL/min/1.73m2 LU (test code = LU) Association [...] tests). Lab Interpretation (test code = Abnormal 76759-3) [facility] WITH [id number] 00:45:16 Test Item Value Reference Range Interpretation Comments WBC (test code = See_Comment [Automated 7590-2) message] The sy stem which generated this result transmitted reference range : 4.20 - 10.70 10*3/?L. The reference range was not used to interpret this result as normal/abnormal . RBC (test code = See_Comment L [Automated 039-8) message] The sy stem which generated this [...] RDW-SD (test code = 49.6 fL 38.5-51.6 51558-4) RDW-CV (test code = 15.1 % 12.1-15.4 788-0) PLT (test code = See_Comment [Automated 777-3) message] The sy stem which generated this result transmitted reference range : 150 - 328 10*3/ ?L. The reference r alisson was not used to interpret this result as normal/abnormal . MPV (test code = 11.2 fL 9.8-13 10278-0) NRBC/100 WBC (test See_Comment [Automat ed code = 8840536736) message] The system which generated this result transmitted reference range : 0.0 - 10.0 /100 WBCs. The refer ence range was not u sed to interpret th is result as normal/abnormal . NRBC x10^3 (test code See_Comment [Auto mated = 8569717717) message] The s ystem which generated this result transmitted reference range : 10*3/?L. The reference range was not used to interpret this result as normal/abnormal . GRAN MAT (NEUT) % 72.3 % (test code = 770-8) IMM GRAN % (test code 0.20 % = 5228420586) LYMPH % (test code = 19.9 % 736-9) MONO % (test code = 6.3 % 5905-5) EOS % (test code = 1.0 % 713-8) BASO % (test code = 0.3 % 706-2) GRAN MAT x10^3(ANC) 6.43 10*3/uL 1.99-6.95 (test code = 5418119003) IMM GRAN x10^3 (test 0-0.06 code = 8182182067) LYMPH x10^3 (test code 1.77 10*3/uL 1.09-3.23 = 731-0) MONO x10^3 (test code 0.56 10*3/uL 0.36-1.02 = 742-7) EOS x10^3 (test code = 0.09 10*3/uL 0.06-0.53 711-2) BASO x10^3 (test code 0.03 10*3/uL 0.01-0.09 = 704-7) Lab Interpretation Abnormal (test code = 16373-7) [facility] METABOLIC PANEL (NA, K, CL, CO2, GLUCOSE, BUN, CREATININE, CA)2022-04-29 10:41:04 Test Item Value Reference Range Interpretation Comments NA (test code = 141 mmol/L 135-145 9594601108) K (test code = 4.1 mmol/L 3.5-5 8628980601) CL (test code = 113 mmol/L 98-108 H 7288181595) CO2 TOTAL (test code = 26 mmol/L 23-31 3694827073) AGAP (test code = 2-16 0180103933) BUN (test code = 2 mg/dL 7-23 L 7661160005) GLUCOSE (test code = 77 mg/dL 70-110 3814719215) CREATININE (test code = 0.43 mg/dL 0.6-1.25 L 4966325415) CALCIUM (test code = 7.5 mg/dL 8.6-10.6 L 8634148725) eGFR (test code = mL/min/1.73m2 9515328525) LU (test code = LU) Association of [...] tests). Lab Interpretation Abnormal (test code = 03482-7) [facility] METABOLIC PANEL (NA, K, CL, CO2, GLUCOSE, BUN, CREATININE, CA)2022-04-29 10:41:04 Test Item Value Reference Range Interpretation Comments NA (test code = 141 mmol/L 135-145 4601690567) K (test code = 4.1 mmol/L 3.5-5.0 4613360268) CL (test code = 113 mmol/L 98-108 H 8161922222) CO2 TOTAL (test code = 26 mmol/L 23-31 2951401152) AGAP (test code = 2-16 2309550683) BUN (test code = 2 mg/dL 7-23 L 1943645631) GLUCOSE (test code = 77 mg/dL 70-110 5280660997) CREATININE (test code = 0.43 mg/dL 0.60-1.25 L 2649082038) CALCIUM (test code = 7.5 mg/dL 8.6-10.6 L 6456592605) eGFR (test code = mL/min/1.73m2 4896083960) LU (test code = LU) Association of [...] tests). Lab Interpretation Abnormal (test code = 46007-8) [facility]2022-07-06 19:02:20 Test Item Value Reference Range Interpretation Comments MAGNESIUM (test code = 9248712073) 1.7 mg/dL 1.7-2.4 Lab Interpretation (test code = Normal 21673-3) [facility]2022-07-06 19:02:20 Test Item Value Reference Range Interpretation Comments MAGNESIUM (test code = 9279664808) 1.7 mg/dL 1.7-2.4 Lab Interpretation (test code = Normal 83059-8) [facility] METABOLIC PANEL (NA, K, CL, CO2, GLUCOSE, BUN, CREATININE, CA)2022-04-28 17:52:13 Test Item Value Reference Range Interpretation Comments NA (test code = 142 mmol/L 135-145 0779354731) K (test code = 2.6 mmol/L 3.5-5 LL 6415173862) CL (test code = 109 mmol/L 98-108 H 5185949924) CO2 TOTAL (test code = 26 mmol/L 23-31 0287628675) AGAP (test code = 2-16 9314832457) BUN (test code = 3 mg/dL 7-23 L 5410773544) GLUCOSE (test code = 95 mg/dL 70-110 5512943150) CREATININE (test code = 0.57 mg/dL 0.6-1.25 L 3309457858) CALCIUM (test code = 7.6 mg/dL 8.6-10.6 L 4304453093) eGFR (test code = mL/min/1.73m2 6103850382) LU (test code = LU) Association of [...] tests). Lab Interpretation Abnormal (test code = 34611-1) [facility] (NA, K, CL, CO2, GLUCOSE, BUN, CREATININE, CA)2022-04-28 17:52:13 Test Item Value Reference Range Interpretation Comments NA (test code = 142 mmol/L 135-145 4075267662) K (test code = 2.6 mmol/L 3.5-5.0 LL 3823149592) CL (test code = 109 mmol/L 98-108 H 7376734432) CO2 TOTAL (test code = 26 mmol/L 23-31 3369574196) AGAP (test code = 2-16 5972945350) BUN (test code = 3 mg/dL 7-23 L 5220721812) GLUCOSE (test code = 95 mg/dL 70-110 7609929727) CREATININE (test code = 0.57 mg/dL 0.60-1.25 L 4822914689) CALCIUM (test code = 7.6 mg/dL 8.6-10.6 L 8528798372) eGFR (test code = mL/min/1.73m2 0646015943) LU (test code = LU) Association of [...] tests). Lab Interpretation Abnormal (test code = 16138-7) [facility] METABOLIC PANEL (NA, K, CL, CO2, GLUCOSE, BUN, CREATININE, CA)2022-04-28 17:52:13 Test Item Value Reference Range Interpretation Comments NA (test code = 142 mmol/L 135-145 5742474993) K (test code = 2.6 mmol/L 3.5-5.0 LL 7133474814) CL (test code = 109 mmol/L 98-108 H 0776663161) CO2 TOTAL (test code = 26 mmol/L 23-31 5734642605) AGAP (test code = 2-16 0592834839) BUN (test code = 3 mg/dL 7-23 L 4310086672) GLUCOSE (test code = 95 mg/dL 70-110 3097163405) CREATININE (test code = 0.57 mg/dL 0.60-1.25 L 5569075907) CALCIUM (test code = 7.6 mg/dL 8.6-10.6 L 8315972528) eGFR (test code = mL/min/1.73m2 5089807080) LU (test code = LU) Association of [...] tests). Lab Interpretation Abnormal (test code = 68627-0) [facility] WITHOUT [id number] 17:16:02 Test Item Value Reference Range Interpretation Comments WBC (test code = 6690-2) See_Comment [A utomated message] The system [employer] generated this result transmit annette reference range : 4.20 - 10.70 10*3/?L. The reference range was not used to interpret this result as normal/abnormal . RBC (test code = 789-8) See_Comment L [Au tomated message] The system [employer] generated this result transmit annette reference range [...] 777-3) See_Comment [Au tomated message] The system [employer] generated this result transmit annette reference range : 150 - 328 10*3/?L. The reference range was not used to interpret this result as normal/abnormal . MPV (test code = 10.7 fL 9.8-13 40432-8) RDW-CV (test code = 14.9 % 12.1-15.4 788-0) RDW-SD (test code = 48.9 fL 38.5-51.6 27544-3) NRBC x10^3 (test code = See_Comment [Au tomated message] 2704276721) The system [employer] generated this result transmit annette reference range : 10*3/?L. The reference range was not used to interpret this result as normal/abnormal . NRBC/100 WBC (test code See_Comment [Au tomated message] = [id number]) The system [facility] generated this result transmit annette reference range : 0.0 - 10.0 /100 WBC s. The reference r alisson was not used to interpret this result as normal/abnormal . IPF % (test code = [id number]) Lab Interpretation (test Abnormal code = 90432-1) [facility] WITHOUT [id number] 17:16:02 Test Item Value Reference Range Interpretation Comments WBC (test code = 6690-2) See_Comment [A utomated message] The system [employer] generated this result transmit annette reference range : 4.20 - 10.70 10*3/?L. The reference range was not used to interpret this result as normal/abnormal . RBC (test code = 789-8) See_Comment L [Au tomated message] The system [employer] generated this result transmit annette reference range [...] 777-3) See_Comment [Au tomated message] The system [employer] generated this result transmit annette reference range : 150 - 328 10*3/?L. The reference range was not used to interpret this result as normal/abnormal . MPV (test code = 10.7 fL 9.8-13.0 88107-2) RDW-CV (test code = 14.9 % 12.1-15.4 788-0) RDW-SD (test code = 48.9 fL 38.5-51.6 62667-2) NRBC x10^3 (test code = <0.01 See_Comment [Au tomated message] [id number]) The system [employer] generated this result transmit annette reference range : 10*3/?L. The reference range was not used to interpret this result as normal/abnormal . NRBC/100 WBC (test code See_Comment [Au tomated message] = [id number]) The system [employer] [facility] annette reference range : 0.0 - 10.0 /100 WBC s. The reference r alisson was not used to interpret this result as normal/abnormal . IPF % (test code = 5306805784) Lab Interpretation (test Abnormal code = 41865-6) [facility] WITHOUT [id number] 17:16:02 Test Item Value Reference Range Interpretation Comments WBC (test code = 6690-2) See_Comment [A utomated message] The system [employer] generated this result transmit annette reference range : 4.20 - 10.70 10*3/?L. The reference range was not used to interpret this result as normal/abnormal . RBC (test code = 789-8) See_Comment L [Au tomated message] The system [employer] generated this result transmit annette reference range [...] 777-3) See_Comment [Au tomated message] The system [employer] generated this result transmit annette reference range : 150 - 328 10*3/?L. The reference range was not used to interpret this result as normal/abnormal . MPV (test code = 10.7 fL 9.8-13.0 16549-6) RDW-CV (test code = 14.9 % 12.1-15.4 788-0) RDW-SD (test code = 48.9 fL 38.5-51.6 33683-5) NRBC x10^3 (test code = <0.01 See_Comment [Au tomated message] 9345332498) The system [employer] generated this result transmit annette reference range : 10*3/?L. The reference range was not used to interpret this result as normal/abnormal . NRBC/100 WBC (test code See_Comment [Au tomated message] = 4709207150) The system [employer] generated this result transmit annette reference range : 0.0 - 10.0 /100 WBC s. The reference r alisson was not used to interpret this result as normal/abnormal . IPF % (test code = 0235674672) Lab Interpretation (test Abnormal code = 46168-6) [facility] [id number] 22:31:26 Test Item Value Reference Range Interpretation Comments K (test code = 6185323599) 3.3 mmol/L 3.5-5 L Lab Interpretation (test code = Abnormal 52551-7) [facility] METABOLIC PANEL (NA, K, CL, CO2, GLUCOSE, BUN, CREATININE, CA)2022-04-27 22:31:26 Test Item Value Reference Range Interpretation Comments NA (test code = 144 mmol/L 135-145 2576988037) K (test code = 3.3 mmol/L 3.5-5 L 4176064807) CL (test code = 112 mmol/L 98-108 H 1737903837) CO2 TOTAL (test code = 27 mmol/L 23-31 7564501569) AGAP (test code = 2-16 6998803301) BUN (test code = 5 mg/dL 7-23 L 7335451531) GLUCOSE (test code = 118 mg/dL 70-110 H 5624476799) CREATININE (test code = 0.63 mg/dL 0.6-1.25 4714662582) CALCIUM (test code = 7.6 mg/dL 8.6-10.6 L 0901541079) eGFR (test code = mL/min/1.73m2 2575360652) LU (test code = LU) Association of [...] tests). Lab Interpretation Abnormal (test code = 18748-0) [facility] [id number] 22:31:26 Test Item Value Reference Range Interpretation Comments K (test code = 3079216060) 3.3 mmol/L 3.5-5.0 L Lab Interpretation (test code = Abnormal 57443-8) [facility] [id number] 22:31:26 Test Item Value Reference Range Interpretation Comments K (test code = 1265882734) 3.3 mmol/L 3.5-5.0 L Lab Interpretation (test code = Abnormal 51360-8) [facility] METABOLIC PANEL (NA, K, CL, CO2, GLUCOSE, BUN, CREATININE, CA)2022-04-27 22:31:26 Test Item Value Reference Range Interpretation Comments NA (test code = 144 mmol/L 135-145 7099116201) K (test code = 3.3 mmol/L 3.5-5.0 L 1123013302) CL (test code = 112 mmol/L 98-108 H 0709103130) CO2 TOTAL (test code = 27 mmol/L 23-31 1852021337) AGAP (test code = 2-16 5619717715) BUN (test code = 5 mg/dL 7-23 L 3007422277) GLUCOSE (test code = 118 mg/dL 70-110 H 7531523263) CREATININE (test code = 0.63 mg/dL 0.60-1.25 6785929936) CALCIUM (test code = 7.6 mg/dL 8.6-10.6 L 3587113775) eGFR (test code = mL/min/1.73m2 8983216694) LU (test code = LU) Association of [...] tests). Lab Interpretation Abnormal (test code = 94255-9) [facility]2022-07-05 21:22:49 Test Item Value Reference Range Interpretation Comments MAGNESIUM (test code = 4789308605) 2.1 mg/dL 1.7-2.4 Lab Interpretation (test code = Normal 36769-4) [facility]2022-07-05 21:22:49 Test Item Value Reference Range Interpretation Comments MAGNESIUM (test code = 7493584776) 2.1 mg/dL 1.7-2.4 Lab Interpretation (test code = Normal 83124-0) [facility] 21:22:49 Test Item Value Reference Range Interpretation Comments MAGNESIUM (test code = 4410104252) 2.1 mg/dL 1.7-2.4 Lab Interpretation (test code = Normal 33751-6) [facility] (NA, K, CL, CO2, GLUCOSE, BUN, CREATININE, CA)2022-04-27 15:50:29 Test Item Value Reference Range Interpretation Comments NA (test code = 143 mmol/L 135-145 2651275292) K (test code = 2.4 mmol/L 3.5-5 LL 6662115549) CL (test code = 110 mmol/L 98-108 H 0089364591) CO2 TOTAL (test code = 28 mmol/L 23-31 4438438725) AGAP (test code = 2-16 9176566367) BUN (test code = 4 mg/dL 7-23 L 4655327050) GLUCOSE (test code = 56 mg/dL 70-110 L 2895958797) CREATININE (test code = 0.65 mg/dL 0.6-1.25 5530666043) CALCIUM (test code = 7.7 mg/dL 8.6-10.6 L 2823839266) eGFR (test code = mL/min/1.73m2 9454846145) LU (test code = LU) Association of [...] tests). Lab Interpretation Abnormal (test code = 59983-8) [facility] METABOLIC PANEL (NA, K, CL, CO2, GLUCOSE, BUN, CREATININE, CA)2022-04-27 15:50:29 Test Item Value Reference Range Interpretation Comments NA (test code = 143 mmol/L 135-145 3094703135) K (test code = 2.4 mmol/L 3.5-5.0 LL 8430097465) CL (test code = 110 mmol/L 98-108 H 8268284655) CO2 TOTAL (test code = 28 mmol/L 23-31 3628792924) AGAP (test code = 2-16 5481924104) BUN (test code = 4 mg/dL 7-23 L 1864050448) GLUCOSE (test code = 56 mg/dL 70-110 L 7188097376) CREATININE (test code = 0.65 mg/dL 0.60-1.25 3269863190) CALCIUM (test code = 7.7 mg/dL 8.6-10.6 L 7403526034) eGFR (test code = mL/min/1.73m2 7631719698) LU (test code = LU) Association of [...] tests). Lab Interpretation Abnormal (test code = 74906-6) [facility] [id number] 23:23:37 Test Item Value Reference Interpretation Comments Range TROPONIN I (test 0.007 ng/mL See_Comment [Automated code = 5205339719) message] The system which generated this result [...] biotin. Lab Interpretation Normal (test code = 49217-2) [facility] ([id number])2022-04-26 23:23:37 Test Item Value Reference Range Interpretation Comments NA (test code = 143 mmol/L 135-145 8205032784) K (test code = 2.3 mmol/L 3.5-5 LL 0993953724) CL (test code = 107 mmol/L 98-108 4254947021) CO2 TOTAL (test code = 27 mmol/L 23-31 7244754894) AGAP (test code = 2-16 6866603092) BUN (test code = 4 mg/dL 7-23 L 1740924831) GLUCOSE (test code = 86 mg/dL 70-110 5074282823) CREATININE (test code = 0.73 mg/dL 0.6-1.25 9206204935) TOTAL BILI (test code = 0.7 mg/dL 0.1-1.4 5638949389) CALCIUM (test code = 7.6 mg/dL 8.6-10.6 L 6862111586) T PROTEIN (test code = 6.5 g/dL 6.3-8.2 4246266253) ALBUMIN (test code = 2.7 g/dL 3.5-5 L 1244337137) ALK PHOS (test code = 96 U/L 34-122 0842392063) ALTv (test code = 13 U/L 5-50 1742-6) AST(SGOT) (test code = 22 U/L 13-40 0732826542) eGFR (test code = mL/min/1.73m2 7227725774) LU (test code = LU) Association of [...] tests). Lab Interpretation Abnormal (test code = 36931-0) [facility] [id number] 23:23:37 Test Item Value Reference Interpretation Comments Range TROPONIN I (test 0.007 ng/mL See_Comment [Automated code = 6080418472) message] The system which generated this result [...] biotin. Lab Interpretation Normal (test code = 71138-0) [facility] (42236)2022-04-26 23:23:37 Test Item Value Reference Range Interpretation Comments NA (test code = 143 mmol/L 135-145 2765003827) K (test code = 2.3 mmol/L 3.5-5.0 LL 0360228034) CL (test code = 107 mmol/L 98-108 4760169981) CO2 TOTAL (test code = 27 mmol/L 23-31 6828451680) AGAP (test code = 2-16 5745556775) BUN (test code = 4 mg/dL 7-23 L 1919292831) GLUCOSE (test code = 86 mg/dL 70-110 6893807322) CREATININE (test code = 0.73 mg/dL 0.60-1.25 7243822293) TOTAL BILI (test code = 0.7 mg/dL 0.1-1.0 5572223854) CALCIUM (test code = 7.6 mg/dL 8.6-10.6 L 0239556652) T PROTEIN (test code = 6.5 g/dL 6.3-8.2 4223709358) ALBUMIN (test code = 2.7 g/dL 3.5-5.0 L 2473646031) ALK PHOS (test code = 96 U/L 34-122 1696838059) ALTv (test code = 13 U/L 5-50 1742-6) AST(SGOT) (test code = 22 U/L 13-40 6373520403) eGFR (test code = mL/min/1.73m2 5537602131) LU (test code = LU) Association of [...] tests). Lab Interpretation Abnormal (test code = 08259-0) [facility] [id number] 23:23:37 Test Item Value Reference Interpretation Comments Range TROPONIN I (test 0.007 ng/mL See_Comment [Automated code = 1240525356) message] The system which generated this result [...] biotin. Lab Interpretation Normal (test code = 79126-7) [facility] (44975)2022-04-26 23:23:37 Test Item Value Reference Range Interpretation Comments NA (test code = 143 mmol/L 135-145 3215973107) K (test code = 2.3 mmol/L 3.5-5.0 LL 9288286339) CL (test code = 107 mmol/L 98-108 4045536142) CO2 TOTAL (test code = 27 mmol/L 23-31 1488520839) AGAP (test code = 2-16 2346998415) BUN (test code = 4 mg/dL 7-23 L 5562857516) GLUCOSE (test code = 86 mg/dL 70-110 9571557518) CREATININE (test code = 0.73 mg/dL 0.60-1.25 3397191620) TOTAL BILI (test code = 0.7 mg/dL 0.1-1.5 4722167138) CALCIUM (test code = 7.6 mg/dL 8.6-10.6 L 8080739798) T PROTEIN (test code = 6.5 g/dL 6.3-8.2 5624149361) ALBUMIN (test code = 2.7 g/dL 3.5-5.0 L 9772145629) ALK PHOS (test code = 96 U/L 34-122 0287441456) ALTv (test code = 13 U/L 5-50 1742-6) AST(SGOT) (test code = 22 U/L 13-40 2644428971) eGFR (test code = mL/min/1.73m2 6771572152) LU (test code = LU) Association of [...] tests). Lab Interpretation Abnormal (test code = 24634-0) [facility] [id number] 23:20:37 Test Item Value Reference Range Interpretation Comments NT-proBNP (test code 393 pg/mL See_Comment H [Autom ated = 9543061332) message] The system which generated this result transmitted reference range : <=125. The reference range was not used to interpret this result as normal/abnormal . LU (test code = LU) Biotin has been reported to cause a negative bias, interpret results relative to patient's use of biotin. Lab Interpretation Abnormal (test code = 98730-0) [facility] [id number] 23:20:37 Test Item Value Reference Range Interpretation Comments NT-proBNP (test code 393 pg/mL See_Comment H [Autom ated = 2998038706) message] The system which generated this result transmitted reference range : <=125. The reference range was not used to interpret this result as normal/abnormal . LU (test code = LU) Biotin has been reported to cause a negative bias, interpret results relative to patient's use of biotin. Lab Interpretation Abnormal (test code = 99520-5) [facility] [id number] 23:20:37 Test Item Value Reference Range Interpretation Comments NT-proBNP (test code 393 pg/mL See_Comment H [Autom ated = 8745314302) message] The system which generated this result transmitted reference range : <=125. The reference range was not used to interpret this result as normal/abnormal . LU (test code = LU) Biotin has been reported to cause a negative bias, interpret results relative to patient's use of biotin. Lab Interpretation Abnormal (test code = 05484-0) [facility]2022-07-04 23:11:39 Test Item Value Reference Range Interpretation Comments LIPASE (test code = 3874735613) 78 U/L 0-220 Lab Interpretation (test code = Normal 03903-9) [facility]2022-[facility]-04 23:11:39 Test Item Value Reference Range Interpretation Comments LIPASE (test code = 7009498735) 78 U/L 0-220 Lab Interpretation (test code = Normal 76745-3) [facility]04 23:11:39 Test Item Value Reference Range Interpretation Comments LIPASE (test code = 3201814693) 78 U/L 0-220 Lab Interpretation (test code = Normal 08330-2) [facility]villeCB WITH [id number] 22:55:18 Test Item Value Reference Range Interpretation [...] RDW-SD (test code = 45.2 fL 38.5-51.6 51827-2) RDW-CV (test code = 14.3 % 12.1-15.4 788-0) PLT (test code = See_Comment [Automated 777-3) message] The sy stem which generated this result transmitted reference range : 150 - 328 10*3/ ?L. The reference r alisson was not used to interpret this result as normal/abnormal . MPV (test code = 10.5 fL 9.8-13 50607-6) NRBC/100 WBC (test See_Comment [Automat ed code = 7803664504) message] The system which generated this result transmitted reference range : 0.0 - 10.0 /100 WBCs. The refer ence range was not u sed to interpret th is result as normal/abnormal . NRBC x10^3 (test code See_Comment [Auto mated = 5847827618) message] The s ystem which generated this result transmitted reference range : 10*3/?L. The reference range was not used to interpret this result as normal/abnormal . GRAN MAT (NEUT) % 73.6 % (test code = 770-8) IMM GRAN % (test code 0.30 % = 5494834779) LYMPH % (test code = 20.6 % 736-9) MONO % (test code = 4.9 % 5905-5) EOS % (test code = 0.3 % 713-8) BASO % (test code = 0.3 % 706-2) GRAN MAT x10^3(ANC) 6.49 10*3/uL 1.99-6.95 (test code = 7525153513) IMM GRAN x10^3 (test 0.03 10*3/uL 0-0.06 code = 9025168049) LYMPH x10^3 (test code 1.82 10*3/uL 1.09-3.23 = 731-0) MONO x10^3 (test code 0.43 10*3/uL 0.36-1.02 = 742-7) EOS x10^3 (test code = 0.03 10*3/uL 0.06-0.53 L 711-2) BASO x10^3 (test code 0.03 10*3/uL 0.01-0.09 = 704-7) Lab Interpretation Abnormal (test code = 65312-0) [facility] WITH [id number] 22:55:18 Test Item Value Reference Range Interpretation [...] RDW-SD (test code = 45.2 fL 38.5-51.6 49997-2) RDW-CV (test code = 14.3 % 12.1-15.4 788-0) PLT (test code = See_Comment [Automated 777-3) message] The sy stem which generated this result transmitted reference range : 150 - 328 10*3/ ?L. The reference r alisson was not used to interpret this result as normal/abnormal . MPV (test code = 10.5 fL 9.8-13.0 68690-0) NRBC/100 WBC (test See_Comment [Automat ed code = 7058008497) message] The system which generated this result transmitted reference range : 0.0 - 10.0 /100 WBCs. The refer ence range was not u sed to interpret th is result as normal/abnormal . NRBC x10^3 (test code <0.01 See_Comment [Auto mated = 6758242370) message] The s ystem which generated this result transmitted reference range : 10*3/?L. The reference range was not used to interpret this result as normal/abnormal . GRAN MAT (NEUT) % 73.6 % (test code = 770-8) IMM GRAN % (test code 0.30 % = 1828173936) LYMPH % (test code = 20.6 % 736-9) MONO % (test code = 4.9 % 5905-5) EOS % (test code = 0.3 % 713-8) BASO % (test code = 0.3 % 706-2) GRAN MAT x10^3(ANC) 6.49 10*3/uL 1.99-6.95 (test code = 6786214805) IMM GRAN x10^3 (test 0.03 10*3/uL 0.00-0.06 code = 2273348036) LYMPH x10^3 (test code 1.82 10*3/uL 1.09-3.23 = 731-0) MONO x10^3 (test code 0.43 10*3/uL 0.36-1.02 = 742-7) EOS x10^3 (test code = 0.03 10*3/uL 0.06-0.53 L 711-2) BASO x10^3 (test code 0.03 10*3/uL 0.01-0.09 = 704-7) Lab Interpretation Abnormal (test code = 99893-5) [facility] WITH [id number] 22:55:18 Test Item Value Reference Range Interpretation [...] RDW-SD (test code = 45.2 fL 38.5-51.6 28759-5) RDW-CV (test code = 14.3 % 12.1-15.4 788-0) PLT (test code = See_Comment [Automated 777-3) message] The sy stem which generated this result transmitted reference range : 150 - 328 10*3/ ?L. The reference r alisson was not used to interpret this result as normal/abnormal . MPV (test code = 10.5 fL 9.8-13.0 03704-6) NRBC/100 WBC (test See_Comment [Automat ed code = 3005036979) message] The system which generated this result transmitted reference range : 0.0 - 10.0 /100 WBCs. The refer ence range was not u sed to interpret th is result as normal/abnormal . NRBC x10^3 (test code <0.01 See_Comment [Auto mated = 1549313668) message] The s ystem which generated this result transmitted reference range : 10*3/?L. The reference range was not used to interpret this result as normal/abnormal . GRAN MAT (NEUT) % 73.6 % (test code = 770-8) IMM GRAN % (test code 0.30 % = 4345471843) LYMPH % (test code = 20.6 % 736-9) MONO % (test code = 4.9 % 5905-5) EOS % (test code = 0.3 % 713-8) BASO % (test code = 0.3 % 706-2) GRAN MAT x10^3(ANC) 6.49 10*3/uL 1.99-6.95 (test code = 8115896783) IMM GRAN x10^3 (test 0.03 10*3/uL 0.00-0.06 code = 8828351616) LYMPH x10^3 (test code 1.82 10*3/uL 1.09-3.23 = 731-0) MONO x10^3 (test code 0.43 10*3/uL 0.36-1.02 = 742-7) EOS x10^3 (test code = 0.03 10*3/uL 0.06-0.53 L 711-2) BASO x10^3 (test code 0.03 10*3/uL 0.01-0.09 = 704-7) Lab Interpretation Abnormal (test code = 72671-3) [facility] [id number] 16:42:42 Test Item Value Reference Range Interpretation Comments Case Report (test code Surgical Pathology ? ? = [id number]) ?Case: [id number] ? Authorizing Provider: ?Negrito Simeon MD ? Collected: ? 03/12/2022 1050 ?Ordering Location: ? ? [facility] ? ? ?Received: ?03/12/2022 1656 ? [facility] ?Pathologist: ? He, Carolin, MD ? Specimens: ? A) - APPENDIX ? B) - HERNIA SAC, RIGHT INGUINAL, RIGHT INGUINAL HERNIA SAC ? Final Diagnosis (test e6dyaBNtDLGni3wwMVQotD code = 6873574442) FuZzEwMzNcZnRuYmpcdWMx IHtccnRmMVxhbnNpXGRlZm neuupcNLGvOVW7lqKrEXDx CRD1UNV0QzZpGRPcUod3OQ FrUG4yqAojcJc6tAiiXNLn xdB0gRRoOQmir3wzEKS7c6 vjcmijOIDoSFjlTe6gkTMz yWdkVnGoOZWeKAz8dN93ME MiqI2rdOEuATleapJqArE8 VOmaSSZbJgP6VDJruDJgIS U7rAomLXQstkuaMiV5LRxy GVUlqhwsDSp1KYhcLWYmvT S4BEIpvHOqY7QcQQSwAE2y wbl2RRE0QUqsCKAsSoS7QJ RxwVDiAFEqgDowWBjlc691 DMN4JsSsDZXzpgLmmCaqbP 7eAuZeGLjfJVEiQX0gUYWT HP0EMEleJDCHEKYGJUSBHJ 9NWTpccGFyICAgICAtIEJF TklHTiBBUFBFTkRJWCBUSV DGZCVwD1lMXXBXOPFANCwi B01JB0VHKYoROlQPVpXXZZ KSRKTNER6SDGWEYZfmHTJH RH1WBIYWERVEGRZsgBDjVS YabfUBAmZxP2owLgDeiWMn SEVSTklBIFNBQywgRVhDSV OGZ011WAXckun+AF4lgke+ TQ4zKUWZMxdZWcCFFBIYPW gKRAsLTUSQSS9COVXJTXEJ V8SOFTNEW3GaIJoNK7APZF kARPovOmFIW1MYPKZiV67S S4QBRQmFYqpvWXRgbnOlGY PpHXHwH52PP1zAXAARMUIC BWTKIYvELm6OMWHAMHWuuT VzARUgR1AsBCWkJEUkjrjr czIyIExpbmRzYXkgQmlnaG RjYAOFViMhIH3cJK5kRHUo QSX7RsHmEOQBURFaccyqke GdDWPhhc50QZB0RjNax3S2 JARpCfOsTTMnYF9ihOyvXO TcIX1wIACfK0pscW6fvxf2 CkGfROEiXlD8JSPcigE1Cd f4FYPmVAyts6jit4OgZ4Fm pYFwpTv5v9jxLVTcYqL2dA KaFCzhS4hwelAaxWJlTJUa JPj7jRurPiZfDRDgq5gtgi BcZmNoYXJzZXQwIENhbGli wpl3zR18DCNpmZ8daLUyAF asvoJdFcT7IKscQNHnKjB9 ABFbkWMbZZUlX6rsDCIlQH pbZWNnKJvuwPGkPXL4kBlz l9A0iEQtoDUtnEtdWbSgFz RsQMZOd4BgBWy0mGnxC7Tz OCXmWsI5fFNsQJYjBOomBO OdYEBojuK2yT46XHjimqV5 qDXrk2Pfq23xp422wD1hiQ KfQTW8QERkDBBxeQZbZMIx EBN5LKEopZTfK3rmGERjMA 9fopmbLVoaFKwnQZXtcFT8 GLQgtODfP4VmSLPzENzmQW Tdtqb1ZaZzXd2upWHqlHrn PBdyt2chc0yyhQNcZdf5EY UoThUzAahsAPnkg7Hqd3xb VGZzvo9vSOW7tJEucApmj9 X7zCOpAGHlwBQdqqYrLBUx LmU1CExhNT6lvo97SMDqZM Q9ad5dxKWdfSahsuNklJPj XVvzV4QdUCTdy601AEBzM9 SzPTSgk8K2tyBoCgFpIAYs hHB3yuN2KBUcGDs0hDLoyt I4ciDpqCLdQ1sbeY3oXHIq EB3ufamth9cpEIyeXQseEN RcsVL7voS7TYTaxGPoO7Sx sY0vJTJdOOaySCTayvm6Tr JdFg5qrYImxHglOCruHgcx YWdlXHBnbmNvbnRccGduZG VjXHBsYWluXHBsYWluXGYw PDUtYoMswLaydXfqwU8sDj FcWeIlBOreUV3rIZTbI9nv cNQfZYLsACWvF7yzWcUciQ 9jaFxmMVxjZjJcZnMyMFxw YXIgSSBoYXZlIHBlcnNvbm LdmKjpblH0hHD1GNMuZTay MGJeFEWegQChxe5hpHefRS MmMN6eIKXykyOuIWzbdJqo ALkdTLD8FNKhgIFzgLReqD FkZSBieSByZXNpZGVudHMs HOHzgKjbi2Kxl9BvpUO3iC 4gp9ohj3SqHHApmGV0BW58 vtX0lR2sTRPaXF6wGISvCA 4bqNYbsAVcIROds47grXod cyByZXBvcnQuXHBsYWluXG YyXGZzMjhcbGFuZzEwMzNc aGljaFxmMlxkYmNoXGYyXG fhS8waQuXcGnGbNPviFHH0 jBvkyuOhAKmyg3RcY8SkKj AwMFxhbnNpXGRlZmxhbmcx RUCaDOD1elKxLLVfCShgTJ VaNJdqUa0xqDGchJzjQdDw NHZcy7mgsxVTUNkhOmFrO3 58JXLfFMpqb1ztz5RmBYVi dUOui1R9OBRAzcyigAx8tA rzK57it9O0TcabD8urXAXb DPZwK2UfBX7sSQJrQwg8LV R6NYW8SQTvBDBoT5MzHV4e UEQgaXFnUMj9t9gtnNlbVP PnCMZ5q4rqTFpsslO7TJ6u yl2jpXj9z0fsneDnRTGlFH CnwWRLZZNkT2ThfJyvDm7h vNr8mEmeNrudQGN7Zel9FQ 2mdk20mrc3vGgpLNIqeuiy OgT2PJdaFHNwafbmBFl5XA rnSZXykXS0FGUzrZNwP9Qq RUWmQT9fsic5JMO6VWzoSQ HlCiF4BKYhyYKkYPMjhNch NSaof999OUF3PkCsGC1qP9 Auh6W2wN0ruTJtQBZysPQn TjNzLCKnzo4pbGCxRRkar6 XaL66geWB2YTnlg0giBG6r UpB9leTiVQpuv7kosS8wDu U1SHctNM7rzl83JJQrRNF2 xk7zsDGglCbrcoNtdZUfHH leA8QvFYNor010OMBjV5Oc ZFLso7H8xjHnBnZiJRGjjG L8rvH9YHVjDIs2yQIsexB3 zdNcnGCiS1amrD2iKEKkGQ 6bnvutb0zsHUhnUOhcPSLi oRH5zkI3UDYmpJOoS8ItsO 4jNLGrREyiMFNiiez3QgRc Gq1ywGSlyQgxIOroFvhuHI dlXHBnbmNvbnRccGduZGVj XHBsYWluXHBsYWluXGYwXG CaEhKwfNEeSCtqr0JyvrBh jBwsKLVdYFb6psNonudpuJ x8mUJrmNarWPShkCsrvH2g CjIaKbHfZLkfOK3nXEKdT8 eprRDfJBYxCRRmO2tyMnQz iD5vdJmiHKvvInClDjWnCA xsdHJjaFxwYXIgSSBoYXZl GCIpjlZqhqAjdIdhglT7lQ J7HCDlOQwsUSQvXLDweCHm xb5oiSihUDOvQG4jJWZzzw VeQKitdQrmGQqyTCN3ZJUm bWVudHMgbWFkZSBieSByZX EmBNRhlEYjWJKwwDfsx1Ua m6LmgTA0fR2vy4tqa5XiRN SyoPT4NL31ybU5wD4lKNZn RM2oECDdUV5ifVBylUCoQY Knt99zgLabnxFnGODsdiPs XHBsYWluXGYxXGZzMjBcbG FuZzEwMzNcaGljaFxmMVxk RaYjCGHrVJirP8gqQpYzZ1 YyXGZzMjBccGFyXHBhclxw HZDsm6YuQmWgs0xnCOgsk0 tqwKw3KJrgoVSflrhqVUba kxO9BXLdBEpeWRScRMAfVL RcbGFuZzEwMzNcaGljaFxm OAlkXePnIKHbULztV0qfTr GqV5WoUYItVZGyfMEiO4yf IFA7oH7bt8eft3TblSUiUd Seo9vuyhJtNXCniYPwqvOe lZOrAKQsk9HuVCOtOIPfLN DCTc6YSWDbsLJsV9m6vPCL JH4oeRHpVDBaIDLyQ4FaSw IGoePub3D6SBPglPDmHTXR EMGlrALeI1j2mZsnKKspMt e5YkMauYnrvN4xOtRsHlYb JEiaDV5sAUPyQ4rsiMLrJM EqRDDoW2dxMrBgmN3myYqi MVxjZjJcZnMyMFxsdHJjaF kfJFV0sF== Clinical Information RIGHT INGUINAL HERNIA (test code = [id number]) Gross Description (test q3reiCIbFLWvkICIXLDlV5 code = [id number]) xobhLcGMVmvJYlJ4Xgcnqv SPkuCK0oPX9ixTvpcGIynC NiLL5MGGUyNgZsMEOriITh jdKkJbGzNYPjsBEffLA7CT HsCY9qmlhmUWpuYYteEHOz xfF2BMXhmWBbK0TyCRWfQQ 6mwzxeMDJ0VBcdaD0aipPM SbbaUx0rmHPmzFabJhDnMx NoYXJzZXQwXGZuaWwgQXJp XCp7yN5UEtyzARE7CGCADy bjXSOpZG4Ur0vhBDQwjJTj FNL1LPoxoORbJBDzIODzSQ j6BZVwPVttwTEzSG4ugWyq TkvinOlce6QqoILiGFugBI NiZDXlMGczAIZwGF2EMlIc IUX8DKbuLHclWSe5QGg4CF 9WUyAiICAxODgyOTUyMSIg SNa5BHylYS2SFRF2TaL1TC V7WkfgWGFeKklpXQk0BDCf XFxmIEFyaWFsIFxcZnMgMT TjQEudnRFkWN2zhUgkoLDx blxmczIwIFNQRUNJTUVOIE UdzJYsFU6AHYClCDseXKCs qUXPODL8JF7iQMRZPansaY TqGWDmiQaqSTqrvR4qND9S VWg1qsJgHWMoArDfF8KrS1 bkQK7nQJSmggFgJFHhfHSx JVSufmMsf9BzSRsygiKiWK JlbGVkIHdpdGggdGhlIHBh xChafhBopeDeHZ3dZIIGGF DnpJ5qAOKwJhZyzVGxTNl3 CegdVV0fKGHgtjDip1XkRU 9mIGFuIGludGFjdCwgdmVy lDyut4CgCITiiJQwKDb9TM h9UcZgN79exK3nnMDkK2Xj EYdvEV92TRTkCIDrgOLoxp OmkTXpOIJhnmwen0a0lCKm tLOhM3skXPIiXWOpQXAjER 3omIeaSY8kGVXbL5E3dLNj pBzgTAVtFIPzP0Ife23hhY IqP3shUzPHhDKox4Hdr8Kn AAkcGZJvsw1dcO4oMVZcKL QiayHun75llvMbtBn9GHDl v716aAB6dJOmDLAjsrses9 QaCIC8KHAiSUsfSgUAbXYg n1HjU7uxKK7idQNqw4WpkV HjvYvjb3VgoGnhqcPmQQPr PBZxsyLylXB8EV9pzPyoqg CnxIUhj7EjWpJtYKPrPN3l OWOjnEErZC3epsLdR1ykEx Fhwl7bYHAxnwHljG60JGGc NSBjbSBpbiBkaWFtZXRlci Q9tUH9OANjsdTydK4mXITo Q65juT10cwGbcJ08gfQex2 Ufi71vsJW4HT5gDgUkf63w OuGcKAgbhWL1RQMwEBrtAY 3dXHCzpcQpnsD8dI3lceCt gkKkY9Djy0AeiORcCMDpnI xjqNGtTwOMJLH1iV6ousK5 byBpbmNsdWRlIHRoZSBlbi SyCMJjYMQbm6ChxRqkvvCm UDUanO1jVKtoi9GmZJQryP UpLCByZXByZXNlbnRhdGl2 TUPqle6btg2vYZP1pM8vES PurgHvOkfrZOF9LWGmaUgh JJTcPCAkaJBjlOW5QRArrE 7yPZVbLWbvmOhaxW0dGKMs G67nf9PTj2JvYTCeQSfzl5 wgbSurn1GyxUSuLUpzOVQq pSQaPFanoX3eYyRmu8ommQ a3GBekuaD4GCGtjv1YChlf ObsamLcqk2VfjXIqKQhqTG GgRBXsAHwjCAJfSP7YYhDb ZAX6WAvvLTcwVWh1YTc2EK 1HPzTyLGBbJPmcNDo3YNAb HKu1IFqtFI8JLIA8OgH1BK C5RHPxYTLqCerwMVb1XBEi XFxmIEFyaWFsIFxcZnMgMT EzCJwbnVIhPU7twFeyrqYi IFNQRUNJTUVOIEJccGFyIA 0QPSKyHZemHQDpoISDXRM3 HK6bXIZOXkgpkOTqHNJebP msLXtuvL0xII2NTYk6ubEo WERsLiPqG9IkF6ppCJ8zFi BpcyByZWNlaXZlZCBpbiBm i2IkWWfypcPcRIVphSAsUT dpdGggdGhlIHBhdGllbnQn ipYbZE5kSCJEXOUoxV5pAJ VkJkZhnRkmvFPkggh7vK1o uJBrKGVufODvn0XfGnduYW 7eLICvdiUkl3IyBF0kMBEl xZXqKRTwvwbdk6FtY3YhWM Rlf75aeHT3lNRheCNhOgLs T68sfiUkWFIiEEF6YWApHX P6JUZuSfPycIdti4zqV5rm pOPnd0VruMZinOape4KefI lvbmVkIHRvIHJldmVhbCB0 MH1cnKrnvfRbNT1iqtZef6 DaRPY9cTMxxYFlOKPcol4t BKFnfXKcj1YihBE6wXDfJV VoR0Tvo17iBNFbZLRycDGk dBT2MYApsA5cKeSaRIJrvg NUVjwxPBRvUVeTBKF2XZGa amVzdGthLCBQQSAoQVNDUC kNClxwbGFpblxlcGljTmVz aHPyPxGekRuwnG23JBEsxL BmHSK0VP5lNZYrffkqOMVq LNUyRXJ9OAcogQ20uJEtBE IcXJWddGJjwK4ZACPaWAX5 KEhudO24hWUiYX2AJWDpUF M6WBRhiHLyDCA8WY4mbR0N fQ== Disclaimer (test code = i8yirHJlHTOge3otSXAxzI [id number]) FuZzEwMzNcZnRuYmpcdWMx QLlyqdLyNThlf6GeT4TwZd AwMFxhbnNpXGRlZmxhbmcx HMTkMDK2phOpQNAaAHvsGT NzDLgiJc5nrZWcgTbzQvUn CHLam4ylttPHWNeiHbQvJ3 96ICXiVEpxc1one0JlYKKg gIFkv8W9DSBUebiuaHj2bQ lxR02ti5R6ZyvbG8koQLIu TWVbA5KnTD8fLQZhHmk9BC X1YSZ2WXRwQSEqY0AiQW0d YJDbeLUuWZx4h4dadPwwJK VaFKL4f3uhHJlvddRmZE2o om2oqXa5j5iguaGeTINnUW WcdHYTHRBsO9YykNyoWd2x wBo8oXvxHdwfXCK5Nka3BL 7arh44wel9mEexKIJvdyhg UfM8NBhpDFWzztagRTy0LZ wvAKYwbPS4GECjoDNiC2Oj MITpKP0uvic8KLK2SIsvQN IdIhX0EGAxqBNoOMZscEyx NSlfw260YOP2DrNwKJ2dH0 Ryl8O9gC4meVWjHBBbfPGy LuSxVNFtiy9afDNkQEdub4 IrCMW1vnN9rZLkcCEiHVWi VT36Dycas7IfZdzfu5KxL4 6qoGO3RGawl6lrNF5pHzB0 eqHsIWsgp7sjuQ1iLhB5HJ ocTH2wGF3gFXYxmF2mcydn XHBnYnJkcmhlYWRccGdicm ZyWi3jqFenCSX3WYrfP6sq xW0iYlR4TCfjN3kssB2vTK i9JRmjsOJ0WXInzW1pHR0p ijzpk9whRVxpSGmmOBUhgl R8tzF5INSpdTRfM5JotX7e RAVuYR8bxnpdz6hqYPR5CV wjZKYnLWZ3AqSsPCRom1Fh kkb7GzTfl5JpyQKjJDlmV6 1nu398YAZegqPcO0apsJVg shlfgGUojpbdSPbwtkB4KT JbopBbl8JjLWBlMJM1GBhi TCumeDXwHSVbuPcxy6xeY1 RscGFyXHBsYWluXGYxXGZz MjBcbGFuZzEwMzNcaGljaF ifFWvpQwXiUBNpJYgnS1mg AqPfP4FpHQIzSnFfxKMfZ2 ggVGhpcyByZXBvcnQgbWF5 ZDupN6w0TPJgssBxcRv8wt TgBlJpDOXkFGZ3ZDggwNHl QRQvt0PfppnyvMBvRg1whQ YaLDNtdK5sPQQhBKVsNSjb EQ1flAm8QVHGwXWvySOyQb JTGGYoPX71vzXuPMGGfnag a2N0PNsdNKHju6VzxWBmW4 pvi0CtNZMhl31wLP4pj8I7 f2jtJXM1SO3dk7MwMABnbU UpqDCuTUFto3Koxxvzo3Qa DEJxhgHrx0SzICVusqOawX PfDKLnpxLqpp0nbxPgHFTp YRPeN0CriikcyYehcvTjHL Ykkm6dcjXhORX1PUEGGOVa DQCtq6DzpW6lwFUAVUK5iJ Svqb0hyqUGvWOqIETyoh64 THZpLV3eZ4jzPUEvPHIvzt NtkHNfk3LjCHCghZN7tPWm MQ4VNjFMq17rHONyGYKFlu LrSMUepVjcbYU0apP6nJ8v IChGREEpLlx+IFRoZSBGRE RjLM9svoIwz0TpwtYnnCdl HSVytRXzz6UtmQYcf4QwrR hfm5HzyHIukWXwOT5bUZAh clxwYXIgVVRNQiBMYWJvcm A1c9CnJVObJZLnTFD1hAte bkz6YGZzwO5jDPWpH2zykh kyDRknRXQfm6JeyL2egTQK zJVoi6BacFMeuGFZkVJbER 0ifqEtVVyUVLoKDFU6rvFk HXDpr0AzPFnpE7siG71qwD ukaSf3fWA4JZF4gM6vWtb+ IFxwYXJccGFyIEFwcHJvcH DgOWZxsHvydhBwF6GacrAa tB5yhVJhaxKlCA0nZQ0yT7 I8eCLePFHmwxXwx4gkYUhn dmUgYmVlbiByZXZpZXdlZC Gdg6YfLAxkMBJ1WTvhnzGh bmNsdWRpbmcgSCZFLCBTcG BxcZRjXXL9RDnqujJsbvEs DZ6tyQ3jqZtjoN9vaCVscR I1lggsIAXdCXMojTfyUTUd PH0ubUQuFXDtzsEKaRktiH QofI1xM4JqOYMoGEUpsu4d KXOmkF8jYZcre2IsikxnMP FvJFGnLUDxgdKwhy1zNIQk yLTDZE0NHAcxrAKbo7Bxsc GoQ7bKBQJ6SVHtGvGnIyyb PDKqtPRjcBHxZSXybf33RZ OpaL9eiBocIPVivK4ezC2w bPeufO2pAwYvGeQcHBufHL 9oYGWwX1yphMIgPUPgVOFe C3fwSwKvhW2nnYtkITwhHk HzGtSuOTnaION7lE== Embedded Images (test code = 9295185109) [facility] - This is a pre-surgical type and screen. ONCE [id number] 17:52:02 Test Item Value Reference Range Interpretation Comments ABO & RH (test AB POSITIVE Performed at [facility] code = 20) Laboratory Serv [facility] [place] [place] [address] 78000Lsqg Free: [phone] A No. [id number] IAT (test code = Negative Performed a t [facility] 1185) Laboratory Serv [facility] [address] [place] [place] [address] 08691Qnfs Free: [phone] A No. [id number] [facility]2022-04-14 23:13:17 Test Item Value Reference Range Interpretation Comments PALB (test code = 45176-1) 20.2 mg/dL 18.0-45.0 Lab Interpretation (test code = Normal 41230-2) [facility]villeHEPAT[facility] FUN[facility] PANEL (18075) (ALB,T.PRO,BILI T,BU/BC,ALT,AST,ALK PHOS)2022-02-04 23:05:58 Test Item Value Reference Range Interpretation Comments TOTAL BILI (test code = 1698035042) 0.4 mg/dL 0.1-1.1 BILI UNCON (test code = 6221435729) 0.2 mg/dL 0.1-1.1 BILI CONJ (test code = 7572278831) 0.0 mg/dL 0.0-0.3 T PROTEIN (test code = 6178790358) 7.7 g/dL 6.3-8.2 ALBUMIN (test code = 7483263615) 3.4 g/dL 3.5-5.0 L ALK PHOS (test code = 2251936630) 65 U/L 34-122 ALTv (test code = 1742-6) 11 U/L 5-50 AST(SGOT) (test code = 6929274008) 23 U/L 13-40 Lab Interpretation (test code = Abnormal 65893-7) [facility] [id number] 03:38:00 Test Item Value Reference Range Interpretation Comments AB HEPATITIS A IGM NEGATIVE (test code = HAVMAB) AG HEPATITIS B NEGATIVE SCREEN NEGATIVE SURFACE (test code = HBSAG) AB HEPATITIS B CORE NEGATIVE IGM (test code = HBCMAB) AB HEPATITIS C (test <0.1 RATIO <0.8 S/C RAT ION 0.0 - code = HCVAB) 0.9 NEGATIVE <0.8INDETERMINA TE 0.8 - 0.9POSITI VE >0.9 [id number] 16:06:00 Test Item Value Reference Range Interpretation Comments SURG (test code = SURG) RUN DATE: 10/07/20 [facility] PAGE 1 RUN TIME: 1607 Specimen Inquiry RUN USER: INTERFACE PATIENT: FIONA SANCHES JR LOC: WINTER U #: [id number] AGE/SX: 35/M ROOM: [facility]INTER RE10/06/20[facility] DR: Sreekanth Garcia MD : 84 BED: 3 DIS: STATUS: ADM Arcadio TLOC: SPEC #: [id number] RECD: 10/06/20 STATUS: ELZA REQ #: [id number] MIRIAM: 10/06/20 [facility] DR: Sreekanth Garcia MD ENTERED: 10/06/20 SP TYPE: SURG OTHR DR: DOES_NOT KNOW No Primary or Family Physician Juan Mcbride MD, Jignesh P MDORDERED: SURG PATH LVL 4 COPIES TO: DOES_NOT KNOW No Primary [place] [address] [address] [email or web address] [address] [place] [address] Arnulfo Cormier MD [address] [place] [address] HISTOLOGY: TISSUE ID BLK PCS KANWAL LEV PROCEDURE DISPOSITION ____ ___ ___ ___ ESOPHAGUS, NOS A 1 2 PROCEDURES: SURG PATH LVL 4 (10/06/20-1245) TISSUES: A. ESOPHAGUS, NOS - ESOPHAGUS BIOPSY CLINICAL HISTORY ESOPHAGEAL FOOD BOLUS, STRICTURE V DYSMOTILITY CONTINUED ON NEXT PAGE RUN DATE: 10/07/20 [facility] PAGE 2 RUN TIME: 1607 Specimen Inquiry RUN USER: INTERFACE SPEC #: [id number] PATIENT: FIONA SANCHES JR #[id number] (Continued) CPT CODES CPT CODE(S): 05996 , , , , , , FINAL DIAGNOSIS Esophagus, biopsy: ACUTE ESOPHAGITIS WITH CANDIDIASIS NEGATIVE FOR INTESTINAL METAPLASIA, DYSPLASIA, OR MALIGNANCY GROSS DESCRIPTION Esophagus biopsy. Received in formalin are multiple minute fragments of suarez soft tissue, 0.1 - 0.3 cm. The specimen is filtered in a teabag and entirely submitted as A. ba/nr Grossing performed at [facility] Pathology, [address] [place] [address], [address], [place] [address]. Resource Program Teacher: Abner Steward M.D. MICROSCOPIC DESCRIPTION Esophagus [...] indicativ e of the presence code = TKEIS23VW) ofSARS-CoV -2 RNA, clinical correlation wit h [...] indicativ e of the presence code = BOMUQ92RK) ofSARS-CoV -2 RNA, clinical correlation wit h [...] SARS-CoV-2 assa y in vitro. CBC W/AUTO [id number] 13:10:00 Test Item Value Reference Range Interpretation [...] NT WITH AUTO DIFFERENTI AL. CBC W/AUTO [id number] 13:10:00 Test Item Value Reference Range Interpretation [...] CONSISTA NT WITH AUTO DIFFERENTI AL. RBC [id number] 13:10:00 Test Item Value Reference Range Interpretation Comments PLATELET ESTIMATE DECREASED THOUSAND ADEQUATE PLAT ELET COUNT (test code = REVIEWED AND PLTEST) VERIFIED. PLATELET MORPHOLOGY NORMAL (test code = PLTMORPH) CBC W/AUTO [id number] 13:10:00 Test Item Value Reference Range Interpretation [...] NT WITH AUTO DIFFERENTI AL. COMPREHENSIVE METABOLIC [id number] 11:48:00 Test Item Value Reference Range Interpretation [...] TOTAL (test code = ALKP) CBC W/AUTO [id number] 11:33:00 Test Item Value Reference Range Interpretation [...] REQUIRED (test code = DIFF/SCN CRITERIA MDIFF) [id number] 04:59:00 Test Item Value Reference Range Interpretation Comments AMMONIA (test code = AMM) 56 mcMOL/L 11-32 H LACTIC [id number] 04:59:00 Test Item Value Reference Range Interpretation Comments LACTIC ACID (test code = LACT) 0.7 mmol/L 0.4-2.0 N GLUCOSE BEDSIDE [id number] 20:35:00 Test Item Value Reference Range Interpretation Comments GLUCOSE BEDSIDE TESTING (test code 109 mg/dL 70-110 N = GLUBED) GLUCOSE BEDSIDE [id number] 17:10:00 Test Item Value Reference Range Interpretation Comments GLUCOSE BEDSIDE TESTING (test code 105 mg/dL 70-110 N = GLUBED) - US ABDOMEN [id number] 16:39:00 [facility] 1985 Sex: M Name:FIONA SANCHES JR [facility] : 1985 Age/S: 35 / M [address] Unit #: [id number] Loc: [place] [address] Phys: Matilda Kirk PA-C Acct: [id number] Dis Date: Status: ADM IN PHONE #: [phone] Exam Date: 10/06/2020 2700 FAX #: Reason: elevated lfts, evaluate for cirrhosis EXAMS: CPT: [id number] US ABDOMEN LTD 74252 RIGHT UPPER QUADRANT ULTRASOUND. CLINICAL HISTORY: Elevated liverfunction tests, evaluate for cirrhosis COMPARISON: CT chest [...] upper abdomen. 2. Mild right renal pelviectasis. 3 . Mild distention of the gallbladder. No gallstones are identified. Location Code: R16 at 1639 Reported and signed by: Eh Barajas M.D.PAGE 1 Signed Report (CONTINUED) Name: FIONA SANCHES JR [place] : 1985 Age/S: 35 / [id number] Unit #: [id number] Loc: [place] [address] Phys: Matilda Kirk PA-C Acct: [id number] Dis Date: Status: ADM IN PHONE #: [phone] Exam Date: 10/06/2020 7216 FAX #: Reason: elevatedlfts, evaluate for cirrhosis EXAMS: CPT: [id number] ABDOMEN [facility] [address] (Continued) CC: Sreekanth Garcia MD; Matilda Kirk Technologist: Rae Eaton Trnnvb Date/Time: 10/06/2020 (1639) [email or web address] PAGE 2 Signed Report Name: FIONA SANCHES JR [place] : 1985 Age/S: 35 / M [address] Unit #: [id number] Loc: [place] [address] Phys: Matilda Kirk PA-C Acct: [id number] Dis Date: Status: ADM IN PHONE #: [phone] Exam Date: 10/06/2020 1515 FAX #: Reason: elevated lfts, evaluate for cirrhosis EXAMS: CPT: [id number] US ABDOMEN LTD [address] (Continued) Orig Print D/T: S: 10/06/2020 (1643) Probe: PAGE 3 Signed ReportUA RFLX MICR CULT IF [id number] 15:23:00 Test Item Value Reference Range Interpretation [...] 92 mg/dL 70-110 N GLUBED) GLUCOSE BEDSIDE [id number] 13:37:00 Test Item Value Reference Range Interpretation Comments GLUCOSE BEDSIDE TESTING (test code = 58 mg/dL 70-110 L GLUBED) CREATINE KINASE (CK)2020-10-06 11:26:00 Test Item Value Reference Range Interpretation Comments CREATINE KINASE (CK) (test code = 287 Unit/L 26-192 H CK) [id number] 11:26:00 Test Item Value Reference Range Interpretation Comments AMYLASE (test code = JOSE CARLOS) 120 Unit/L 25-115 H [id number] 11:26:00 Test Item Value Reference Range Interpretation Comments LIPASE (test code = LIP) 112 Unit/L 114-286 L CBC W/AUTO [id number] 09:58:00 Test Item Value Reference Range Interpretation [...] DIFF/SCN CRITERIA (test code = MDIFF) WBC [id number] 09:58:00 Test Item Value Reference Range Interpretation [...] NORMAL (test code = PLTMORPH) CBC W/AUTO [id number] 09:55:00 Test Item Value Reference Range Interpretation [...] DIFF/SCN CRITERIA (test code = MDIFF) WBC [id number] 09:55:00 Test Item Value Reference Range Interpretation Comments SEGMENTED NEUTROPHILS (test code = SEG) % 40-75 LYMPHOCYTE (test code = LYMPH) % 12.6-43.5 CBC W/AUTO [id number] 09:55:00 Test Item Value Reference Range Interpretation [...] DIFF/SCN CRITERIA (test code = MDIFF) WBC [id number] 09:55:00 Test Item Value Reference Range Interpretation Comments SEGMENTED NEUTROPHILS (test code = SEG) % 40-75 LYMPHOCYTE (test code = LYMPH) % 12.6-43.5 COMPREHENSIVE METABOLIC [id number] 09:14:00 Test Item Value Reference Range Interpretation [...] TOTAL (test code = ALKP) CBC W/AUTO [id number] 09:02:00 Test Item Value Reference Range Interpretation [...] CRITERIA (test code = MDIFF) GLUCOSE BEDSIDE [id number] 06:41:00 Test Item Value Reference Range Interpretation Comments GLUCOSE BEDSIDE TESTING (test code = 65 mg/dL 70-110 L GLUBED) COVID 19 INHOUSE [id number] 05:40:00 Test Item Value Reference Range Interpretation Comments COVID 19 INHOUSE AG NEGATIVE Negative Per manu facturer, (test code = negative result s should [id number]) be treated aspr esumptive and, if inconsi [...] co nsistent with COVID-19. - CT CHEST [id number] 03:30:00 [facility] : 1985 Sex: M Name:MYRON VICTORFIONA [facility] : 1985 Age/S: 35 / M [address] Unit #: [id number]: [place] [address] Phys: Scott Person MD Acct: [id number] Dis Date: Status: REG PHONE #: [phone] Exam Date: 10/06/2020 0243 FAX #: Reason: possible esophageal pneumatosis EXAMS: CPT:[id number] CT CHEST W/CONTRAST 60149 DICTATION LOCATION: 8 HISTORY: Male, 35 years of age with esophageal pain for 2 months; evaluate for esophageal pneumatosis EXAM: CT CHEST WITH IV CONTRAST (ROUTINE) COMPARISON: None TECHNIQUE: Helical axial images were obtained through the chest with 100 mL nonionic IV contrast using the routine chest protocol. Coronal and sagittal reformats were performed. Oneor more of the following dose reduction techniques were used: Automated exposure control; adjustmentof the mA and/or kV according to the patient size; and/or use of iterative reconstruction technique.STATEMENT: Exam quality is acceptable. FINDINGS: AORTA: No [...] Signed Report (CONTINUED) Name: FIONA SANCHES JR [facility] : 1985 Age/S: 35 / M [address] Unit #: [id number] Loc: [place] [address] Phys: Scott Person MD Acct: [id number] Dis Date: Status: REG ER PHONE #: [phone] Exam Date: 10/06/2020 0245 FAX #: Reason: possible esophageal pneumatosis EXAMS: CPT: [id number] CT CHEST W/CONTRAST [address]29 (Continued) (i.e. scleroderma or dermatomyositis). Infiltrative neoplasm [...] disease, can cause a similar imaging pattern. E lectronically Signed by Alyx Ma MD on 10/06/2020 at 0330 Reported and signed by: Alyx Ma MD CC: Technologist:Valentine Momin, RT(R)(CT); CTDI: DLP: Trnscb Date/Time: 10/06/2020 (329) [email or web address] Orig Print D/T: S: 10/06/2020 (033) PAGE 2 Signed Report- CT NECK W/[id number] 03:11:00 [facility] : 1985 Sex: M Name:FIONA SANCHES JR [facility] : 1985 Age/S: 35 / M [address] Unit #: [id number]: [place] [address] Phys: Scott Person MD Acct: [id number] Dis Date: Status: REG ER PHONE #: [phone] Exam Date: 10/06/2020 0250 FAX #: Reason: possible esophageal pneumatosis EXAMS: CPT:[id number] CT NECK W/CONTRAST 66119 EXAM: - CT NECK W/CONTRAST LOCATION: H57 [...] thyroid glands are normal in appearance. No cervical lymphadenopathy. The bones and soft tissues are unremarkable. Please refer to dedicated concurrent CT chest for additional thoracic findings. IMPRESSION: Unremarkable CT neck. at 0311 Reported and signed by: Gianni Otero M.D. PAGE 1 Signed Report (CONTINUED) Name: FIONA SANCHES JRland : 1985Age/S: 35 / M [address] Unit #: [id number] Loc: [place] [address] Phys: Scott Person MD Acct: [id number] Dis Date: Status: REG ER PHONE #: [phone] Exam Date: 10/06/2020 0250 FAX #: Reason: possible esophageal pneumatosis EXAMS: CPT: [id number] CT NECK W/CONTRAST 28954 (Continued) CC: Technologist:Valentine Momin, RT(R)(CT); CTDI: DLP: Trnscb Date/Time: 10/06/2020 (310) [email or web address] Orig Print D/T: S: 10/06/2020 (313) PAGE 2 Signed ReportBASIC METABOLIC [id number] 02:14:00 Test Item Value Reference Range Interpretation [...]
[2022-06-21 14:21] LABS: Absolute Lymphocytes (CBC) 2.5 K/uL (0.7-4.9); MCV 88.7 fL (80-100); MPV 8.9 fL (7.6-11.3); RBC Red Blood Cell Count 3.94 M/uL (4.33-5.43)
[2022-06-21 14:25] LABS: Protime INR 1.2
[2022-06-21] MEDS ORDERED: HYDROCOD 2.5mg-ACETAMIN 108mg/5mL Soln ONE ×2 (14:30→16:58)
[2022-06-21 14:45] LABS: AST/SGOT 11 U/L (15-37); Alkaline Phosphatase 114 U/L (45-117); BUN Blood Urea Nitrogen 13 mg/dL (7-18); Bicarbonate 29 mmol/L (21-32); Bilirubin Direct 0.2 mg/dL (0-0.2); Bilirubin Total 0.4 mg/dL (0.2-1.0); Glomerular Filtration Rate 114 ml/min (=/>90); Glucose Level 73 mg/dL (74-106); Protein, Total 6.7 g/dL (6.4-8.2); Sodium Level 141 mmol/L (136-145)
[2022-06-21 14:51] LABS: ALT/SGPT < 10 U/L (12-78); Potassium 2.5 mmol/L (3.5-5.1)
--- NOTE | 2022-06-21 15:34 | ER ---
Nurse's Notes [facility] Name: Tahir Ag Jr Age: 37 yrs Sex: Male : 1985 Arrival Date: 06/21/2022 Time: 12:48 Bed 19 Private MD: Diagnosis: Moderate protein-calorie malnutrition;Hypokalemia;Other problems related to social environment Presentation: 06/21 13:00 Chief complaint: EMS states: toned out to PT home due to PT wanting to hurt himself. tp1 EMS reported PT has no plan but if he were to follow through he would take a bunch of his trazodone and hydroxyzine. EMS stated PT was fighting with parents and it triggered suicidal thoughts. EMS reports PT has not had any meds today and nothing to eat or drink. BP 90/59, 96% RA. 13:00 Coronavirus screen: Vaccine status: Patient reports being unvaccinated. Ebola Screen: tp1 Patient negative for fever greater than or equal to 101.5 degrees Fahrenheit, and additional compatible Ebola Virus Disease symptoms Patient denies exposure to infectious person. Initial Sepsis Screen: Does the patient meet any 2 criteria? No. Patient's initial sepsis screen is negative. Does the patient have a suspected source of infection? No. Patient's initial sepsis screen is negative. Risk Assessment: Do you want to hurt yourself or someone else? Patient reports desire/thoughts of hurting themselves or someone else. Provider notified. Onset of symptoms was June 21, 2022. 13:00 Method Of Arrival: EMS: [facility] tp1 13:00 Acuity: MARTINA 2 tp1 Triage Assessment: 13:00 General: Appears in no apparent distress. unkempt, malnourished, Behavior is calm, tp1 cooperative. Pain: Denies pain. EENT: No signs and/or symptoms were reported regarding the EENT system. Neuro: Level of Consciousness is awake, alert, obeys commands, Oriented to person, place, time, situation. Cardiovascular: Patient's skin is warm and dry. Respiratory: Airway is patent Respiratory effort is even, unlabored. GI: PEG tube in place, clamped. Site with drainage. : No signs and/or symptoms were reported regarding the genitourinary system. Derm: Skin is dry. Musculoskeletal: Circulation, motion, and sensation intact. Historical: - Allergies: 14:12 No Known Allergies; tp1 - Home Meds: 13:00 Trazodone Oral [Active]; Depakote Oral [Active]; hydrocodone [Active]; Hydroxyzine Oral tp1 [Active]; risperidone oral [Active]; - PMHx: 13:00 achalasia; Bipolar disorder; Diabetes - NIDDM; Hernia; Hypertension; Schizophrenia; tp1 Seizure; - PSHx: 13:00 gastrostomy tube; tp1 - Immunization history:: Client reports having NOT received the Covid vaccine. - Social history:: Smoking status: Patient denies any tobacco usage or history of. Screenin:00 Abuse screen: Denies threats or abuse. Denies injuries from another. Nutritional tp1 screening: Had unintentional weight loss of 10 pounds or more. 13:00 Tuberculosis screening: No symptoms or risk factors identified. Fall Risk No fall in tp1 past 12 months (0 pts). No secondary diagnosis (0 pts). IV access (20 points). Ambulatory Aid- None/Bed Rest/Nurse Assist (0 pts). Gait- Normal/Bed Rest/Wheelchair (0 pts) Mental Status- Oriented to own ability (0 pts). Total Durham Fall Scale indicates No Risk (0-24 pts). Assessment: 13:00 General: see triage notes . tp1 13:00 Reassessment: C-SSRS initial screening form has been completed. tp1 13:50 Reassessment: criminal justice social worker at bedside. denied wanting to hurt or kill self. tp1 14:07 Reassessment: Patient appears in no apparent distress at this time. No changes from tp1 previously documented assessment. Patient and/or family updated on plan of care and expected duration. Pain level reassessed. Patient is alert, oriented x 3, equal unlabored respirations, skin warm/dry/pink. sitter at bedside. 14:15 Reassessment: CO 10/10 pain "all over". provider notified. tp1 15:00 Reassessment: Patient appears in no apparent distress at this time. Patient and/or tp1 family updated on plan of care and expected duration. Pain level reassessed. Patient is alert, oriented x 3, equal unlabored respirations, skin warm/dry/pink. sitter at bedside. 16:00 Reassessment: Patient appears in no apparent distress at this time. No changes from tp1 previously documented assessment. Patient and/or family updated on plan of care and expected duration. Pain level reassessed. Patient is alert, oriented x 3, equal unlabored respirations, skin warm/dry/pink. provider discontinued SI screening. 16:51 Reassessment: Patient appears in no apparent distress at this time. Patient and/or tp1 family updated on plan of care and expected duration. Pain level reassessed. Patient is alert, oriented x 3, equal unlabored respirations, skin warm/dry/pink. rates pain 6/10 "all over". 17:16 Reassessment: states pain is better. leaking noticed around peg tube. provider notified.tp1 18:15 Reassessment: Patient appears in no apparent distress at this time. No changes from tp1 previously documented assessment. Patient and/or family updated on plan of care and expected duration. Pain level reassessed. Patient is alert, oriented x 3, equal unlabored respirations, skin warm/dry/pink. flushed Peg tube with 50 mL water. Vital Signs: 13:00 BP 96 / 73; Pulse 63; Resp 16; Pulse Ox 100% on R/A; tp1 13:00 BP 96 / 73; Pulse 96; Resp 16; Pulse Ox 100% on R/A; tp1 17:18 BP 103 / 63; Pulse 58; Resp 13; Pulse Ox 100% on R/A; tp1 18:35 BP 91 / 70; Pulse 57; Resp 14; Pulse Ox 100% on R/A; tp1 21:45 Weight 44.45 kg (R); Height 5 ft. 5 in. (165.10 cm) (R); aa9 21:45 Body Mass Index 16.31 (44.45 kg, 165.10 cm) aa9 ED Course: 12:48 Patient arrived in ED. iw 12:53 Miladis Mukherjee FNP-C is PHCP. snw 12:53 Omari Wang MD is Attending Physician. snw 13:00 Arm band placed on. tp1 13:00 No provider procedures requiring assistance completed. tp1 13:05 EKG done, by ED staff. tp1 13:29 Patient has correct armband on for positive identification. Sitter at bedside. mb7 13:37 Lisa Knapp, RN is Primary Nurse. tp1 13:40 Missed attempt(s): 22 gauge in right forearm. vg1 13:41 Warm blanket given. mb7 13:45 Missed attempt(s): 22 gauge in right forearm. vg1 13:54 Triage completed. tp1 14:12 Initial lab(s) drawn, by sc, sent to lab. Inserted saline lock: 22 gauge in right jl7 forearm, using aseptic technique. Blood collected. 14:12 Salicylate Sent. mb7 14:13 ETOH Level Sent. mb7 14:13 Acetaminophen Sent. mb7 14:13 Basic Metabolic Panel Sent. mb7 14:13 CBC with Diff Sent. mb7 14:13 Hepatic Function Sent. mb7 14:13 PT-INR Sent. mb7 14:13 Ptt, Activated Sent. mb7 15:33 Dariel Benavides is Hospitalizing Provider. snw 16:26 Urinalysis Sent. tp1 19:11 role handed off by Delmy Perez RN mw2 19:55 Contacted [facility] Crisis Line spoke to Angie to have a screener evaluate the mw2 patient. 22:35 [facility] is here to evaluate the patient. mw2 06/22 05:26 Attending Physician role handed off by Omari Wang MD daniel 05:26 Keshawn Fish MD is Attending Physician. [facility] 07:12 Primary Nurse role handed off by Lisa Knapp, MARTINA tw2 07:12 Teagan Green, RN is Primary Nurse. tw2 10:06 Niesha Jack, RN is Primary Nurse. [facility] Administered Medications: 06/21 14:28 Drug: Lortab (HYDROcodone-acetaminophen) Liquid 5 ml Route: PO; tp1 14:50 Follow up: Response: Pain is decreased tp1 16:23 Drug: D5-NS with KCL 40 mEq/L 1000 ml Route: IV; Rate: 150 ml/hr; Site: right forearm; tp1 16:29 CANCELLED (Duplicate Order): Lortab (HYDROcodone-acetaminophen) Liquid 2.5 ml PO once tp1 16:51 Drug: Lortab (HYDROcodone-acetaminophen) Liquid 5 ml Route: PO; tp1 17:20 Follow up: Response: Pain is decreased tp1 Medication: 14:30 VIS not applicable for this client. tp1 Outcome: 15:34 Decision to Hospitalize by Provider. snw 06/23 12:42 Patient left the ED. jl7 Signatures: Keshawn Fish MD MD cha Waters, Shelly, MANAGER GROCERY-C MANAGER GROCERY-Csnw Xiomara Clarke, RN RN iw Teagan Green, RN RN tw2 Saqib Pederson, RN RN jl7 Nicolle Waldropruth mw2 Delmy Perez, RN RN 1 Niesha Jack, RN RN 5 Lisa Knapp RN RN tp1 Marcelino Anna 7 Felicia Wilkinson, RN RN aa9 Corrections: (The following items were deleted from the chart) 06/21 14:12 13:50 Reassessment: criminal justice social worker at bedside tp1 tp1 16:52 16:00 Reassessment: provider discontinued SI screening tp1 tp1 17:06 16:51 Reassessment: Patient appears in no apparent distress at this time. Patient tp1 and/or family updated on plan of care and expected duration. Pain level reassessed. Patient is alert, oriented x 3, equal unlabored respirations, skin warm/dry/pink. rates pain 6/10 "all over" tp1 17:20 17:16 Reassessment: leaking noticed around peg tube. provider notified tp1 tp1 18:34 13:00 GI: PEG tube in place, clamped. Site clean. tp1 tp1
--- NOTE | 2022-06-21 15:35 | EDPHYS ---
Physician Documentation [facility] Name: Tahir Ag Jr Age: 37 yrs Sex: Male : 1985 Arrival Date: 06/21/2022 Time: 12:48 Bed 19 Private MD: ED Physician Keshawn Fish HPI: 06/21 12:58 This 37 yrs old Black Male presents to ER via Unassigned with complaints of social snw situation, fighting with Parents, states he has suicidal ideation. 12:58 The patient presents to the emergency department with suicide ideation, but the patient snw has no formulated plan. Onset: The symptoms/episode began/occurred acutely. Past psychiatric history: Prior diagnosis: depression, the patient has not had a prior suicide gesture, the patient has a previous inpatient psychiatric history, at many. Associated signs and symptoms: Pertinent positives; pt has esophageal problem that he has had a g-tube placed for distantly. Pt is cachectic. Severity of symptoms: At their worst the symptoms were moderate in the emergency department the symptoms are unchanged. The patient has experienced similar episodes in the past, pt is manipulative and has been transferred many times with the most recent to a psych facility that sent him back because he told them he had to have TID tube feedings even though he can tolerate po. It is unknown whether or not the patient has recently seen a physician, Sees Dr. Nguyen in . Historical: - Allergies: 14:12 No Known Allergies; tp1 - Home Meds: 13:00 Trazodone Oral [Active]; Depakote Oral [Active]; hydrocodone [Active]; Hydroxyzine Oral tp1 [Active]; risperidone oral [Active]; - PMHx: 13:00 achalasia; Bipolar disorder; Diabetes - NIDDM; Hernia; Hypertension; Schizophrenia; tp1 Seizure; - PSHx: 13:00 gastrostomy tube; tp1 - Immunization history:: Client reports having NOT received the Covid vaccine. - Social history:: Smoking status: Patient denies any tobacco usage or history of. ROS: 12:58 Constitutional: Negative for fever, chills, and weight loss, Eyes: Negative for injury, snw pain, redness, and discharge, ENT: Negative for injury, pain, and discharge, Neck: Negative for injury, pain, and swelling, Cardiovascular: Negative for chest pain, palpitations, and edema, Respiratory: Negative for shortness of breath, cough, wheezing, and pleuritic chest pain, Abdomen/GI: Negative for abdominal pain, nausea, vomiting, diarrhea, and constipation, Back: Negative for injury and pain, : Negative for injury, bleeding, discharge, and swelling, MS/Extremity: Negative for injury and deformity, Skin: Negative for injury, rash, and discoloration, Neuro: Negative for headache, weakness, numbness, tingling, and seizure. 12:58 Psych: Positive for depression, suicidal ideation, pt got in an argument with his Parents, called EMS for SI. Exam: 13:04 Head/Face: Normocephalic, atraumatic. Eyes: Pupils equal round and reactive to light, snw extra-ocular motions intact. Lids and lashes normal. Conjunctiva and sclera are non-icteric and not injected. Cornea within normal limits. Periorbital areas with no swelling, redness, or edema. ENT: Nares patent. No nasal discharge, no septal abnormalities noted. Tympanic membranes are normal and external auditory canals are clear. Oropharynx with no redness, swelling, or masses, exudates, or evidence of obstruction, uvula midline. Mucous membranes moist. Neck: Trachea midline, no thyromegaly or masses palpated, and no cervical lymphadenopathy. Supple, full range of motion without nuchal rigidity, or vertebral point tenderness. No Meningismus. Chest/axilla: Normal chest wall appearance and motion. Nontender with no deformity. No lesions are appreciated. Cardiovascular: Regular rate and rhythm with a normal S1 and S2. No gallops, murmurs, or rubs. Normal PMI, no JVD. No pulse deficits. Respiratory: Lungs have equal breath sounds bilaterally, clear to auscultation and percussion. No rales, rhonchi or wheezes noted. No increased work of breathing, no retractions or nasal flaring. 13:04 Back: No spinal tenderness. No costovertebral tenderness. Full range of motion. Skin: Warm, dry with normal turgor. Normal color with no rashes, no lesions, and no evidence of cellulitis. MS/ Extremity: Pulses equal, no cyanosis. Neurovascular intact. Full, normal range of motion. Neuro: Awake and alert, GCS 15, oriented to person, place, time, and situation. Cranial nerves II-XII grossly intact. Motor strength 5/5 in all extremities. Sensory grossly intact. Cerebellar exam normal. Normal gait. 13:04 Constitutional: The patient appears alert, awake, frail, Cachectic 13:04 Abdomen/GI: malnourished . 13:04 Psych: Behavior/mood is pt is well known to ED and EMS personnel. States he thought about hurting himself today after a fight with his Family. Pt's Mom called the ED and stated she cannot handle him at home.. Vital Signs: 13:00 BP 96 / 73; Pulse 63; Resp 16; Pulse Ox 100% on R/A; tp1 13:00 BP 96 / 73; Pulse 96; Resp 16; Pulse Ox 100% on R/A; tp1 17:18 BP 103 / 63; Pulse 58; Resp 13; Pulse Ox 100% on R/A; tp1 18:35 BP 91 / 70; Pulse 57; Resp 14; Pulse Ox 100% on R/A; tp1 21:45 Weight 44.45 kg (R); Height 5 ft. 5 in. (165.10 cm) (R); aa9 21:45 Body Mass Index 16.31 (44.45 kg, 165.10 cm) aa9 Procedures: 06/22 05:26 Peripheral line: by aseptic technique a peripheral line was placed in the left external daniel jugular vein. MDM: 06/21 12:53 Patient medically screened. snw 15:30 Data reviewed: vital signs, nurses notes. Data interpreted: Pulse oximetry: on room air snw is 100 %. Interpretation: normal. Counseling: I had a detailed discussion with the patient and/or guardian regarding: the historical points, exam findings, and any diagnostic results supporting the discharge/admit diagnosis, lab results, the need for further work-up and treatment in the hospital. Response to treatment: There is no appreciated change of the patient's symptoms at this time. Special discussion: Pt notified that he is running out of options. He requests NH placement. Will admit to [facility] today for nutrition assessment and electrolyte management. Pt denies SI. Currently Parents are not able to deal with his issues and he is not welcome back to their home.. 15:35 Physician consultation: Chanel Olivarez SENIOR PROJECT ARCHITECT was called at 15:30, regarding admission, to snw the telemetry unit. would like admission per Dr. Dariel Benavides. 06/21 12:52 Order name: Acetaminophen; Complete Time: 14:57 em1 06/21 12:52 Order name: Basic Metabolic Panel; Complete Time: 14:57 em1 06/21 12:52 Order name: CBC with Diff; Complete Time: 14:23 em1 06/21 12:52 Order name: ETOH Level; Complete Time: 14:46 em1 06/21 12:52 Order name: Hepatic Function; Complete Time: 14:57 em1 06/21 12:52 Order name: PT-INR; Complete Time: 14:46 em1 06/21 12:52 Order name: Ptt, Activated; Complete Time: 14:46 em1 06/21 12:52 Order name: Salicylate; Complete Time: 14:57 em1 06/21 12:52 Order name: Urine Drug Screen; Complete Time: 16:47 em1 06/21 15:15 Order name: SARS RAPID; Complete Time: 16:25 snw 06/21 15:48 Order name: Urinalysis EDMS 06/21 16:20 Order name: Urine Dipstick-Ancillary; Complete Time: 16:25 EDMS 06/21 17:23 Order name: Wound Culture: around g tube snw 06/21 18:44 Order name: Phosphorus; Complete Time: 18:48 EDMS 06/21 18:44 Order name: T4 Free; Complete Time: 18:48 EDMS 06/21 18:44 Order name: Magnesium; Complete Time: 18:48 EDMS 06/21 18:44 Order name: Thyroid Stimulating Hormone; Complete Time: 18:48 EDMS 06/22 02:50 Order name: CBC with Automated Diff; Complete Time: 03:09 EDMS 06/22 03:08 Order name: Basic Metabolic Panel; Complete Time: 03:09 EDMS 06/22 03:08 Order name: Phosphorus; Complete Time: 03:09 EDMS 06/22 03:08 Order name: Magnesium; Complete Time: 03:09 EDMS 06/22 03:08 Order name: Glucose, Ancillary Testing; Complete Time: 03:09 EDMS 06/22 04:55 Order name: Glucose, Ancillary Testing; Complete Time: 07:12 EDMS 06/22 07:46 Order name: Glucose, Ancillary Testing EDMS 06/22 10:35 Order name: Wound Culture EDWI 06/22 13:37 Order name: Potassium EDWI 06/22 14:32 Order name: Glucose, Ancillary Testing [facility] 06/22 17:17 Order name: Glucose, Ancillary Testing [facility] 06/23 02:55 Order name: Comprehensive Metabolic Panel [facility] 06/23 02:55 Order name: Phosphorus EDWI 06/21 12:52 Order name: EKG; Complete Time: 12:53 em1 06/21 12:52 Order name: EKG - Nurse/Tech; Complete Time: 13:37 em1 06/21 12:52 Order name: IV Saline Lock; Complete Time: 14:12 em1 06/21 12:52 Order name: Labs collected and sent; Complete Time: 14:12 em1 06/21 12:52 Order name: Suicide Screening ([place]); Complete Time: 14:29 em1 06/21 12:52 Order name: Urine Dipstick-Ancillary (obtain specimen); Complete Time: 16:25 em1 06/21 13:12 Order name: consult Order-Dept (Account Officer); Complete Time: 15:58 snw 06/21 15:33 Order name: Diet Tube Feeding: formualry tube feedings as indicated; Complete Time: snw 15:33 06/23 02:55 Order name: Magnesium EDWI EC:23 Rate is 59 beats/min. Rhythm is regular. QRS [place] is Normal. No ST changes noted. snw Clinical impression: Sinus bradycardia. Administered Medications: 14:28 Drug: Lortab (HYDROcodone-acetaminophen) Liquid 5 ml Route: PO; tp1 14:50 Follow up: Response: Pain is decreased tp1 16:23 Drug: D5-NS with KCL 40 mEq/L 1000 ml Route: IV; Rate: 150 ml/hr; Site: right forearm; tp1 16:29 CANCELLED (Duplicate Order): Lortab (HYDROcodone-acetaminophen) Liquid 2.5 ml PO once tp1 16:51 Drug: Lortab (HYDROcodone-acetaminophen) Liquid 5 ml Route: PO; tp1 17:20 Follow up: Response: Pain is decreased tp1 Disposition: 06/22 05:26 Co-signature as Attending Physician, Keshawn Fish MD I agree with the assessment and daniel plan of care. Disposition Summary: 06/21/22 15:34 Hospitalization Ordered Hospitalization Status: Inpatient Admission snw Provider: Dariel Benavides snw Condition: Fair snw Problem: an acute exacerbation snw Symptoms: are unchanged snw Bed/Room Type: Standard snw Location: [facility] ER HOLD(06/21/22 17:57) dw Room Assignment: ERHOLD-(06/21/22 17:57) dw Diagnosis - Moderate protein-calorie malnutrition snw - Hypokalemia snw - Other problems related to social environment snw Forms: - Medication Reconciliation Form snw - SBAR form snw Signatures: Dispatcher [employer] Blanche Parra RN RN Keshawn Hunter MD MD cha Waters, Shelly, WOOD DRILL OPERATOR-C WOOD DRILL OPERATOR-Julio Jain emJefry Nicole DO DO ms3 Lisa Knapp RN RN tp1 Lisa Summers, RYAN PA sb3 Corrections: (The following items were deleted from the chart) 06/21 16:29 16:28 Lortab (HYDROcodone-acetaminophen) Liquid 2.5 ml PO once ordered. tp1 tp1 17:57 15:34 Telemetry/MedSurg (Inpatient) snw dw 17:57 15:34 snw dw
[2022-06-21 15:38] LABS: SARS-CoV-2 Antigen Rapid Res Negative (Negative)
[2022-06-21] MEDS ORDERED: HYDROCOD 2.5mg-ACETAMIN 108mg/5mL Soln PO PRN (15:42)
[2022-06-21] MEDS ORDERED: ONDANSETRON 4 MG/2 ML VIAL IV PRN (15:48)
[2022-06-21] MEDS ORDERED: ACETAMINOPHEN 500 MG TAB PO PRN (15:48)
[2022-06-21] MEDS ORDERED: HYDROXYZINE PAMOATE 50 MG PO PRN (15:51)
--- NOTE | 2022-06-21 15:52 | P.HP ---
Certification for Inpatient Patient admitted to: Inpatient With expected LOS: >2 Midnights Patient will require the following post-hospital care: None Practitioner: I am a practitioner with admitting privileges, knowledge of patient current condition, hospital course, and medical plan of care. Services: Services provided to patient in accordance with Admission requirements found in Title 42 Section 412.3 of the Code of Federal Regulations Patient History Date of Service: 06/21/22 Reason for admission: Suicidal ideation, hypokalemia History of Present Illness: Patient is a 37-year-old male with a past medical history significant for achalasia, bipolar disorder, DM 2, hypertension, schizophrenia who presents with complaint of suicidal ideation. Patient reported that he has been having problem with his parents whom he lives with. He reports that he argues a lot with his parents which is giving him a lot of stress and as a result he is thinking of hurting himself. Patient does not have a plan in place. At time of assessment patient currently denies any suicidal ideation. Patient reports that anytime he eats he vomits due to his achalasia. Patient denies any other signs or symptoms. Symptoms are aggravated or relieved by nothing. Patient decided to present to the hospital for medical evaluation. Allergies No Known Allergies Allergy (Unverified 12/10/11 10:57) Home Medications: Potassium Bicarbonate/Cit AC [Effer-K 20 Meq Tablet Eff] 20 meq PO DAILY 30 Days #30 tablet.eff 08/20/21 Risperidone [Risperdal] 1 mg PO BID 12/19/21 Sertraline [Zoloft*] 50 mg PO BID 12/19/21 Trazodone HCl 50 mg PO BEDTIME 12/19/21 hydrOXYzine pamoate [Hydroxyzine Pamoate] 50 mg PO Q6HP PRN 12/19/21 - Past Medical/Surgical History Diabetic: Yes -: Diabetes mellitus type 2 -: Achalasia with severe malnutrition -: Bipolar disorder -: Schizophrenia -: HTN -: PEG tube Psychosocial/ Personal History: Patient with severe bipolar/schizophrenia, achalasia, chronic wounds. Patient was staying with his parents who are now disabled. - Family History Mother -: Diabetes - Social History Smoking Status: Current some day smoker Counseled patient to stop smoking for: less than 10 minutes Smoking therapy provided: Yes Patient receptive to therapy: Yes Alcohol use: No CD- Drugs: No Caffeine use: No Place of Residence: Home Review of Systems General: Unremarkable Eyes: Unremarkable ENT: Unremarkable Respiratory: Unremarkable Cardiovascular: Unremarkable Gastrointestinal: Vomiting Genitourinary: Unremarkable Musculoskeletal: Unremarkable Integumentary: Other, Unremarkable Neurological: Unremarkable Physical Examination - Physical Exam General: Alert, Oriented x3, Cooperative HEENT: Atraumatic, Normocephalic, PERRLA Neck: Supple, 2+ carotid pulse no bruit, JVD not distended Respiratory: Clear to auscultation bilaterally, Normal air movement Cardiovascular: No edema, Normal pulses Capillary refill: <2 Seconds Gastrointestinal: Normal bowel sounds, Soft and benign Musculoskeletal: No clubbing, No swelling, No contractures Integumentary: No rashes, No erythema, No warmth Neurological: Normal speech, Normal tone Lymphatics: No axilla or inguinal lymphadenopathy - Studies Laboratory Data (last 24 hrs) 06/21/22 14:05: PT 13.2 H, INR 1.20, APTT 42.4 H 06/21/22 14:05: WBC 8.60 D, Hgb 11.6 L, Hct 35.0 L, Plt Count 254 06/21/22 14:05: Sodium 141, Potassium 2.5 L*, BUN 13, Creatinine 0.85, Glucose 73 L, Total Bilirubin 0.4, AST 11 L, ALT < 10 L, Alkaline Phosphatase 114 Assessment and Plan - Plan --Suicide ideation. Patient reported that he has had suicidal ideation in the last 1 week due to family stressors. Patient has no plan. Patient currently denies any suicidal ideation at time of assessment. Suicide precaution. Continue supportive care. -- Severe protein calorie malnutrition. Patient unable to tolerate p.o. intake due to achalasia. Patient reports that he vomits anytime he tries to eat. We will keep patient NPO. Patient has a PEG tube. Dietitian consulted. Continue tube feeding. Will await further recommendation from dietitian. -- Hypokalemia. Replete as needed. We will continue to monitor potassium levels. --Anemia of chronic disease. H&H stable. We will continue to monitor hemoglobin and transfuse if less than 7.0. --Illicit drug use. UDS positive for cocaine. Patient counseled on drug cessation --Nicotine dependence. Patient placed on nicotine patch and counseled on tobacco cessation. --DM2. BS monitor with sliding scale insulin. --Bipolar disorder\schizophrenia. Continue home medication. --Achalasia. Patient reported that he is scheduled for surgery outpatient. Details unknown. Continue supportive care. -- DVT prophylaxis with Lovenox subQ. Discharge Plan: Home Plan to discharge in: Greater than 2 days - Advance Directives Does patient have a Living Will: No Does patient have a Durable POA for Healthcare: No Physician Review: Patient Assessed, Agree with Above Assessment and Plan Critical Care: No
[2022-06-21] MEDS: INSULIN -REGULAR HUMAN 50 UNIT/0.5 ML ML SQ SCH ×2 (16:00→20:00)
[2022-06-21] MEDS ORDERED: D5 NS IV SCH (16:00)
[2022-06-21] MEDS ORDERED: POTASSIUM CL IV SCH (16:00)
[2022-06-21 16:20] LABS: Urine Blood Negative (Negative); Urine Glucose Negative (Negative); Urine Protein 1+ (Negative); Urine Specific Gravity 1.025 (1.005-1.030); Urine pH 6.5 (5.0-7.0)
[2022-06-21] MEDS ORDERED: hydrOXYzine HCL 25 MG TAB PO PRN (16:37)
[2022-06-21 16:44] LABS: Barbiturates NEGATIVE (NEGATIVE); Benzodiazepines NEGATIVE (NEGATIVE); Cocaine POSITIVE (NEGATIVE); METHAMPHETAM NEGATIVE (NEGATIVE); Methadone NEGATIVE (NEGATIVE); Opiates NEGATIVE (NEGATIVE); Phencyclidine NEGATIVE (NEGATIVE); THC Cannibis NEGATIVE (NEGATIVE)
[2022-06-21] MEDS: ENOXAPARIN 40 MG/0.4 ML SQ SCH (17:00)
[2022-06-21 18:43] LABS: Thyroid Stimulating Hormone 0.532 uIU/mL (0.360-3.740)
[2022-06-21] MEDS ORDERED: MORPHINE 4 MG/ML SYR IV PRN (18:47)
[2022-06-21] MEDS: NICOTINE 21 MG/PAT TD SCH (19:00)
[2022-06-21] MEDS: TRAZODONE 50 MG TABLET PO SCH (21:00)
[2022-06-21] MEDS: RISPERIDONE 1 MG TABLET PO SCH (21:00)
[2022-06-21] MEDS: SERTRALINE HCL 50 MG TAB PO SCH (21:00)
[2022-06-21] MEDS ORDERED: HYDROCODONE/APAP 7.5/325 MG TAB ONE (22:09)
[2022-06-21] MEDS: HYDROCODONE/APAP 7.5/325 MG TAB PO PRN (22:19)
[2022-06-21] MEDS ORDERED: NICOTINE 21 MG/PAT TD ONE (22:51)
[2022-06-21] MEDS ORDERED: SERTRALINE HCL 50 MG TAB ONE (23:13)
[2022-06-21] MEDS ORDERED: RISPERIDONE 1 MG TABLET ONE (23:13)
[2022-06-21] MEDS ORDERED: TRAZODONE 50 MG TABLET ONE (23:13)
[2022-06-22 02:45] LABS: Absolute Lymphocytes (CBC) 2.3 K/uL (0.7-4.9); Hematocrit 29.5 % (39.6-49.0); Lymphocytes % 32.2 % (15.3-44.8); MCV 88.3 fL (80-100); MPV 8.8 fL (7.6-11.3); RBC Red Blood Cell Count 3.34 M/uL (4.33-5.43)
[2022-06-22 03:06] LABS: Magnesium 2.3 mg/dL (1.8-2.4); Phosphorus 2.2 mg/dL (2.5-4.9)
[2022-06-22 03:08] LABS: Potassium 2.2 mmol/L (3.5-5.1)
[2022-06-22] MEDS ORDERED: POTASSIUM PHOS IN 0.9 % NACL 15 MMOL/250 ML BAG IV ONE (03:10)
[2022-06-22] MEDS: INSULIN -REGULAR HUMAN 50 UNIT/0.5 ML ML SQ SCH ×6 (04:00→20:00)
[2022-06-22] MEDS: KCL 20 MEQ/100 mL IVPB 20 MEQ/100 ML BAG IV SCH ×2 (05:00→07:00)
[2022-06-22 05:07] VITALS: BMI 16.2
[2022-06-22] MEDS ORDERED: KCL 20 MEQ/100 mL IVPB 100 ML IV ONE (05:27)
[2022-06-22] MEDS: HYDROCODONE/APAP 7.5/325 MG TAB PO PRN ×2 (05:30→10:25)
[2022-06-22] MEDS ORDERED: HYDROCODONE/APAP 7.5/325 MG TAB ONE ×3 (05:36→10:31)
--- NOTE | 2022-06-22 08:15 | EKG ---
Test Date: 2022-06-21 Test Time: 13:19:38 Public Health Director: DASH MEASUREMENT RESULTS: Intervals: Rate: 59 ME: 146 QRSD: 80 QT: 476 QTc: 471 [place]: P: 53 ME: 146 QRS: 94 T: 80 INTERPRETIVE STATEMENTS: Sinus bradycardia with sinus arrhythmia Rightward axis Borderline ECG Compared to ECG 06/21/2022 13:18:31 ST (T wave) deviation no longer present Electronically Signed On 06-22-22 08:12:09 CDT by Grant Bill
--- NOTE | 2022-06-22 08:15 | EKG ---
Test Date: 2022-06-21 Test Time: 13:18:31 Program Arranger: DASH MEASUREMENT RESULTS: Intervals: Rate: 58 [place]: 130 QRSD: 86 QT: 444 QTc: 435 [place]: P: 61 [place]: 130 QRS: 95 T: 37 INTERPRETIVE STATEMENTS: Undetermined rhythm Rightward axis ST abnormality, possible digitalis effect Abnormal ECG Compared to ECG 06/19/2022 11:00:38 Right-axis deviation now present ST (T wave) deviation now present Sinus bradycardia no longer present Electronically Signed On 06-22-22 08:12:10 CDT by Grant Bill
[2022-06-22] MEDS: NICOTINE 21 MG/PAT TD SCH (08:21)
[2022-06-22] MEDS: ENOXAPARIN 40 MG/0.4 ML SQ SCH (08:25)
[2022-06-22] MEDS: SERTRALINE HCL 50 MG TAB PO SCH ×2 (08:26→21:00)
[2022-06-22] MEDS: RISPERIDONE 1 MG TABLET PO SCH ×2 (08:26→21:00)
[2022-06-22] MEDS ORDERED: D5 0.9 NS 1,000 ML with POTASSIUM CL 40 MEQ IV SCH ×2 (08:30)
[2022-06-22] MEDS ORDERED: [UNRECOGNIZED DRUG - OTHER] PO SCH (09:00)
[2022-06-22] MEDS ORDERED: POTASSIUM 25 MEQ EFFERV TAB PO SCH (09:00)
[2022-06-22] MEDS: TRAMADOL HCL 50 MG TAB FT PRN ×2 (15:22→23:40)
[2022-06-22] MEDS ORDERED: TRAMADOL HCL 50 MG TAB ONE ×2 (15:36→23:07)
[2022-06-22] MEDS ORDERED: ONDANSETRON 4 MG/2 ML VIAL ONE (15:50)
--- NOTE | 2022-06-22 17:30 | P.PN ---
Date of Service: 06/22/22 Subjective: tired, denies suicidal thoughts, no intent to harm himself no new symptoms ROS: 10 point ROS as noted above, otherwise negative Physical exam GEN: Alert, orientedx3, NAD, cachectic HEENT: Normal conjunctiva, sclera anicteric CV: Regular rate and rhythm, no edema Pulm: Non-labored respirations on room air ABD: Soft, nontender, nondistended Neuro: Normal speech, normal affect Problem List suicidal ideation severe protein calorie malnutrition hypokalemia, chronic anemia of chronic disease cocaine use disorder nicotine use disorder NIDDM2 Bipolar/Schizophrenia Achalasia patient currently denies SI, states he felt that way yesterday due to arguments with his parents patient states he has been taking his tube feeds as prescribed, however has been losing weight and states he has been throwing up when trying to swallow food he has h/o achalasia with food bolus in esophagus multiple times, also seen on most recent CT from this week strict NPO, meds and tube feeds via g tube doubt patient is truly taking his tube feeds as prescribed social worker clinical consulted h/h stable +Cocaine, states last used ~4 days ago still has not had surgery for his achalasia chronic hypokalemia, replace anticipate stable for discharge home tomorrow restarted tube feeds, replacing low electrolytes patient requesting pain medication, states hurts all over. has history of requesting pain medication, has left AMA in the past when pain medication is not given DATABASE ARCHITECT reviewed, no home prescriptions dc morpine, dc norco; ok for tramadol today; work on weaning Dispo: home, likely tomorrow Time Spent Managing Pts Care (In Minutes): 35
[2022-06-22] MEDS ORDERED: POTASSIUM 25 MEQ EFFERV TAB FT ONE (18:00)
[2022-06-22] MEDS ORDERED: POTASSIUM 25 MEQ EFFERV TAB ONE (20:37)
[2022-06-22] MEDS: TRAZODONE 50 MG TABLET PO SCH (21:00)
[2022-06-22] MEDS: JEVITY 1.5 CAL LIQUID 1,000 ML BOT FT SCH (21:00)
[2022-06-23 02:53] LABS: AST/SGOT 7 U/L (15-37); Albumin 1.5 g/dL (3.4-5.0); Alkaline Phosphatase 89 U/L (45-117); BUN Blood Urea Nitrogen 8 mg/dL (7-18); Bicarbonate 33 mmol/L (21-32); Bilirubin Total 0.2 mg/dL (0.2-1.0); Glomerular Filtration Rate 136 ml/min (=/>90); Glucose Level 96 mg/dL (74-106); Phosphorus 2.1 mg/dL (2.5-4.9); Potassium 3.7 mmol/L (3.5-5.1); Protein, Total 5.2 g/dL (6.4-8.2); Sodium Level 141 mmol/L (136-145)
[2022-06-23 02:54] LABS: ALT/SGPT < 10 U/L (12-78)
[2022-06-23] MEDS: INSULIN -REGULAR HUMAN 50 UNIT/0.5 ML ML SQ SCH (04:00)
[2022-06-23] MEDS ORDERED: TRAMADOL HCL 50 MG TAB FT PRN (08:06)
[2022-06-23] MEDS ORDERED: ENOXAPARIN 40 MG/0.4 ML SQ ONE (08:37)
[2022-06-23] MEDS ORDERED: POTASSIUM 25 MEQ EFFERV TAB ONE (08:37)
[2022-06-23] MEDS ORDERED: NICOTINE 21 MG/PAT TD ONE (08:38)
[2022-06-23] MEDS ORDERED: Levofloxacin500mg IV 500 MG/100 ML BAG IV SCH (09:00)
[2022-06-23] MEDS: JEVITY 1.5 CAL LIQUID 1,000 ML BOT FT SCH (09:00)
[2022-06-23] MEDS ORDERED: ONDANSETRON 4 MG/2 ML VIAL ONE (09:26)
--- NOTE | 2022-06-23 12:06 | CON ---
History Of Present Illness: This is a 37-year-old male. I was consulted for evaluation of PEG tube site infection. The patient has significant past medical history of diabetes mellitus, achalasia wit h severe malnutrition, bipolar disorder, schizophrenia, hypertension, PEG tube placement. Also has s uicidal ideation. The patient wants to go home. Denies any other problems at this time. No fever, nausea, vomiting, chest pain, abdominal pain. Past Medical History: As per HPI. Social History: Tobacco positive, alcohol negative. Family History: Noncontributory. Medications: Levaquin. See MAR for other medications. Allergies: NO KNOWN DRUG ALLERGIES. Review of Systems: A 10-point review was performed. Physical Examination: General: This is a 37-year-old male, lying in bed, in the emergency room not in any acute cardiopulm onary distress. Vital Signs: Temperature 98, pulse 70, respirations 16, blood pressure 81/50. HEENT: Unremarkable. Neck: Supple. Lungs: Basal crackles. Heart: S1, S2. Regular. Abdomen: Soft. Bowel sounds present. PEG site shows slight greenish discoloration. No excessive i nflammation or inflammatory changes noted at this time. Extremity: No edema. Severe muscle wasting noted. Laboratory Data: Shows WBC 7.2, hemoglobin 9.8, platelets 196. Chemistry shows sodium 141, potassiu m 3.7, chloride 106, bicarb 33, BUN 8, creatinine 0.4, glucose is 96, albumin is 1.5. Micro data fro m wound cultures are growing E coli and Enterobacter aerogenes, sensitive to quinolones. Assessment And Plan: Abdominal wound with PEG side infection growing Escherichia coli and Enterobact er aerogenes. We will recommend to apply Silvadene to the wound site by applying to the gauze and ch anging dressing at least twice a day for 10 days. The patient can be switched to oral Levaquin on di errol for 7 days. Monitor signs of infection with WBC and fever trends. Thank you Dr. Wang for consult. NF/MODL Voice ID: [id number] Report ID: [id number]
[2022-06-23 12:18] VITALS: TEMP 97.6
--- NOTE | 2022-06-23 12:45 | P.DS ---
Admission Date: 06/21/22 Discharge Date: 06/23/22 Disposition: ROUTINE DISCHARGE Discharge Condition: FAIR Reason for Admission: Suicidal ideation, hypokalemia Consultations: ID - Dr. Sosa Brief History of Present Illness: 37yo M, PMH: achalasia, bipolar disorder, schizophrenia, DM2, HTN, presented to ED due to suicidal ideation. Patient reported having problem with his parents whom he lives with. They were arguing a lot lately which lead him to feel very stressed and have thoughts of hurting himself. Patient denies any specific plan to hurt himself. Argument has been due to patient not taking care of himself and not following medical recommendations. He has achalasia and not supposed to eat anything by mouth. He continues to ignore these recommendations and tries to eat, leading to him vomiting around the house. He often refuses / skips his tube feeding. Family report he calls EMS sometimes to be brought to [facility], then leaves as soon as he gets dropped off - using ambulance as a "free ride". Patient reported having "pain all over" and requested IV morphine. Labs rather unremarkable except for hypokalemia, hypoalbuminemia, and UDS positive for cocaine. Hospital Course: Problem List severe protein calorie malnutrition hypokalemia, chronic anemia of chronic disease cocaine use disorder nicotine use disorder NIDDM2 Bipolar/Schizophrenia Achalasia Shortly after admission, patient denied any further suicidal ideation. States the argument with his parents lead to high stress and he didn't know what to do. He appeared very thin, reported missing multiple tube feed boluses. His electrolytes were repleted, restarted on his tube feeds and was doing well. Transport Driver was consulted and recommended continue tube feeds (Jevity) and free water flushes. He was noted to have some erythema around his gastric tube site, with concern for the start of an infection. ID was consulted and recommend topical silvadene and levaquin for 7 days. A superficial swab was obtained in the ER prior to admission, grew E. coli and Enterobacter aerogenes, sensitive to quinolones. Family reportedly did not want patient to return home since he has not been following recommendations and throwing up everywhere. They were hoping for placement somewhere against the patient's will. Patient appeared to have decision making capacity - able to explain back to me what was going on and consequences. Despite understanding the consequences he stated if he felt hungry he would try to eat. Patient was otherwise medically stable and ready for discharge. He simply needs to take his tube feeds, medications, and not eat anything by mouth. His surgery for achalasia has been delayed due to his constant eating and constantly having a food bolus in his lower esophagus. special services supervisor & Case management were consulted. Patient without any medical or psychiatric need at this time and wouldn't qualify for placement. They reached out to family to assist in process as outpatient. I spoke with family to discuss ongoing issues with the patient. They state he knows what to say, how to say things, and can be manipulative, to seem that he is competent, but they feel his bad decisions make him incompetent. Discussed that someone with decision making capacity can still make bad decisions and we can't force certain treatments/lifestyles onto them. His cousin stated they have tried to get him set up at nursing homes in the area from home, and were previously denied. They have been advised previously to get further mental/psych evaluation and co nsideration for obtaining legal guardianship / declaration of incompetence / lack of capacity, however, they have not done this. While discussing these concerns, the patient walked out of the hospital prior to receiving discharge instructions / paperwork / discharge order. Medications - levaquin and silvadene were sent to his pharmacy and family were made aware. Physical exam GEN: Alert, orientedx3, NAD, cachectic HEENT: Normal conjunctiva, sclera anicteric CV: Regular rate and rhythm, no edema Pulm: Non-labored respirations on room air ABD: Soft, nontender, nondistended, ~2cm area of irritation, erythema around gastric tube site, no purulent drainage noted Neuro: Normal speech, normal affect Vital Signs/Physical Exam: Temp Pulse Resp BP Pulse Ox 97.6 F 60 16 102/70 99 06/23/22 08:00 06/23/22 08:00 06/23/22 08:00 06/23/22 08:00 06/23/22 08:00 Laboratory Data at Discharge: WBC 7.20 K/uL (4.3-10.9) D 06/22/22 02:12 RBC 3.34 M/uL (4.33-5.43) L 06/22/22 02:12 Hgb 9.8 g/dL (13.6-17.9) L 06/22/22 02:12 Hct 29.5 % (39.6-49.0) L D 06/22/22 02:12 MCV 88.3 fL (80-100) 06/22/22 02:12 MCH 29.3 pg (27.0-35.0) 06/22/22 02:12 MCHC 33.2 g/dL (32.0-36.0) 06/22/22 02:12 RDW 16.2 % (12.1-15.2) H 06/22/22 02:12 Plt Count 196 K/uL (152-406) D 06/22/22 02:12 MPV 8.8 fL (7.6-11.3) 06/22/22 02:12 Neutrophils % 56.8 % (41.7-73.7) 06/22/22 02:12 Lymphocytes % 32.2 % (15.3-44.8) 06/22/22 02:12 Monocytes % 8.7 % (3.3-12.3) 06/22/22 02:12 Eosinophils % 2.0 % (0-4.4) 06/22/22 02:12 Basophils % 0.3 % (0-1.3) 06/22/22 02:12 Absolute Neutrophils 4.1 K/uL (1.8-8.0) 06/22/22 02:12 Absolute Lymphocytes 2.3 K/uL (0.7-4.9) 06/22/22 02:12 Absolute Monocytes 0.6 K/uL (0.1-1.3) 06/22/22 02:12 Absolute Eosinophils 0.1 K/uL (0-0.5) 06/22/22 02:12 Absolute Basophils 0.0 K/uL (0-0.5) 06/22/22 02:12 PT 13.2 SECONDS (9.5-12.5) H 06/21/22 14:05 INR 1.20 06/21/22 14:05 APTT 42.4 SECONDS (24.3-36.9) H 06/21/22 14:05 Sodium 141 mmol/L (136-145) 06/23/22 02:05 Potassium 3.7 mmol/L (3.5-5.1) 06/23/22 02:05 Chloride 106 mmol/L (98-107) 06/23/22 02:05 Carbon Dioxide 33 mmol/L (21-32) H 06/23/22 02:05 Anion Gap 5.7 mEq/L (5.0-15.0) 06/23/22 02:05 BUN 8 mg/dL (7-18) 06/23/22 02:05 Creatinine 0.48 mg/dL (0.55-1.3) L 06/23/22 02:05 Est GFR (CKD-EPI) 136 ml/min (=/>90) 06/23/22 02:05 Glucose 96 mg/dL (74-106) 06/23/22 02:05 POC Glucose 81 mg/dL (65-120) 06/22/22 17:04 Calcium 7.2 mg/dL (8.5-10.1) L 06/23/22 02:05 Phosphorus 2.1 mg/dL (2.5-4.9) L 06/23/22 02:05 Magnesium 2.0 mg/dL (1.8-2.4) 06/23/22 02:05 Total Bilirubin 0.2 mg/dL (0.2-1.0) 06/23/22 02:05 Direct Bilirubin 0.2 mg/dL (0-0.2) 06/21/22 14:05 AST 7 U/L (15-37) L 06/23/22 02:05 ALT < 10 U/L (12-78) L 06/23/22 02:05 Alkaline Phosphatase 89 U/L (45-117) 06/23/22 02:05 Serum Total Protein 5.2 g/dL (6.4-8.2) L 06/23/22 02:05 Albumin 1.5 g/dL (3.4-5.0) L 06/23/22 02:05 Globulin 3.7 g/dL (2.3-3.5) H 06/23/22 02:05 Albumin/Globulin Ratio 0.4 (1.1-1.8) L 06/23/22 02:05 TSH 0.532 uIU/mL (0.360-3.740) 06/21/22 18:01 Free T4 1.09 ng/dL (0.76-1.46) 06/21/22 18:01 Urine Color Cancelled 06/21/22 15:44 Urine Clarity Cancelled 06/21/22 15:44 Urine pH 6.5 (5.0-7.0) 06/21/22 16:17 Ur Specific [place] 1.025 (1.005-1.030) 06/21/22 16:17 Glucose (UA)(Auto) Negative (Negative) 06/21/22 16:17 Urine Ketones Trace (Negative) H 06/21/22 16:17 Urine Blood Negative (Negative) 06/21/22 16:17 Urine Nitrite Negative (Negative) 06/21/22 16:17 Urine Bilirubin Cancelled 06/21/22 15:44 Urine Urobilinogen Cancelled 06/21/22 15:44 Ur Leukocyte Esterase Negative (Negative) 06/21/22 16:17 Urine RBC Cancelled 06/21/22 15:44 Urine Red Cell Clumps Cancelled 06/21/22 15:44 Urine WBC Cancelled 06/21/22 15:44 Urine WBC Clumps Cancelled 06/21/22 15:44 Ur Squamous Epith Cells CLIENT ADVISOR 06/21/22 15:48 U Non-Squamous Epi Cells Cancelled 06/21/22 15:44 Ur Transition Epith Cell Cancelled 06/21/22 15:44 Ur Renal Epithelial Cell Cancelled 06/21/22 15:44 Calcium Carbonate Cryst Cancelled 06/21/22 15:44 Calcium Oxalate Crystal Cancelled 06/21/22 15:44 Leucine Crystals Cancelled 06/21/22 15:44 Cystine Crystals Cancelled 06/21/22 15:44 Uric Acid Crystals Cancelled 06/21/22 15:44 Triple Phos Crystals Cancelled 06/21/22 15:44 Tyrosine Crystals Cancelled 06/21/22 15:44 Unidentified Crystals Cancelled 06/21/22 15:44 Amorphous Crystals Cancelled 06/21/22 15:44 Urine Bacteria Cancelled 06/21/22 15:44 Hyaline Casts Cancelled 06/21/22 15:44 Granular Casts Cancelled 06/21/22 15:44 Waxy Casts Cancelled 06/21/22 15:44 RBC Casts Cancelled 06/21/22 15:44 WBC Casts Cancelled 06/21/22 15:44 Urine Mucus Cancelled 06/21/22 15:44 Urine Trichomonas Cancelled 06/21/22 15:44 Ur Yeast w Hyphae Cancelled 06/21/22 15:44 Urine Yeast (Budding) Cancelled 06/21/22 15:44 Urine Sperm Cancelled 06/21/22 15:44 Ur Oval Fat Bodies Cancelled 06/21/22 15:44 Urine Total Protein 1+ (Negative) H 06/21/22 16:17 Urine Ascorbic Acid Cancelled 06/21/22 15:44 Urine Fat Cancelled 06/21/22 15:44 Salicylates < 2.2 mg/dL (2.8-20) L 06/21/22 14:05 Opiates Screen Negative (NEGATIVE) 06/21/22 16:18 Methadone Screen Negative (NEGATIVE) 06/21/22 16:18 Acetaminophen < 2.5 ug/mL (10.0-30.0) L 06/21/22 14:05 Ur Barbiturates Screen Negative (NEGATIVE) 06/21/22 16:18 Ur Phencyclidine Scrn Negative (NEGATIVE) 06/21/22 16:18 Amphetamines Screen Negative (NEGATIVE) 06/21/22 16:18 Benzodiazepines Screen Negative (NEGATIVE) 06/21/22 16:18 Cocaine Screen Positive (NEGATIVE) H 06/21/22 16:18 Ur THC Screen Negative (NEGATIVE) 06/21/22 16:18 Plasma/Serum Alcohol < 10 mg/dL (<10) 06/21/22 14:05 SARS-CoV-2 Ag (Rapid) Negative (Negative) 06/21/22 15:20 Home Medications: Potassium Bicarbonate/Cit AC [Effer-K 20 Meq Tablet Eff] 20 meq PO DAILY 30 Days #30 tablet.eff 08/20/21 Risperidone [Risperdal] 1 mg PO BID 12/19/21 Sertraline [Zoloft*] 50 mg PO BID 12/19/21 Trazodone HCl 50 mg PO BEDTIME 12/19/21 hydrOXYzine pamoate [Hydroxyzine Pamoate] 50 mg PO Q6HP PRN 12/19/21 Silver Sulfadiazine [Silvadene] See Rx Instructions .ROUTE .COMPLEX 30 Days #1 tube 06/23/22 levoFLOXacin [Levofloxacin] 20 ml PO DAILY 7 Days #140 ml 06/23/22 New Medications: levoFLOXacin [Levofloxacin] 20 ml PO DAILY 7 Days #140 ml Silver Sulfadiazine [Silvadene] See Rx Instructions .ROUTE .COMPLEX 30 Days #1 tube Followup: NONE,NONE [Primary Care Provider] - Time spent managing pt's care (in minutes): 45
[2022-06-23 13:02] VITALS: O2SAT 100
[2022-06-23 13:07] VITALS: BP 91/70
== END 2022-06-23 12:45 | disposition home or self-care (01) | DRG 641 ==
LOC: ER 12:46 → ERHOLD 15:39
PROVIDERS: ADMIT Internal Medicine; ATTEND Hospitalist
DX: E43 Unspecified severe protein-calorie malnutrition (principal); Z68.1 Body mass index [BMI] 19.9 or less, adult; R64 Cachexia; R45.851 Suicidal ideations; K22.0 Achalasia of cardia; E11.9 Type 2 diabetes mellitus without complications; I10 Essential (primary) hypertension; E87.6 Hypokalemia; D63.8 Anemia in other chronic diseases classified elsewhere; F20.9 Schizophrenia, unspecified; L53.9 Erythematous condition, unspecified; F31.9 Bipolar disorder, unspecified; F17.200 Nicotine dependence, unspecified, uncomplicated; B96.89 Other specified bacterial agents as the cause of diseases classified elsewhere; B96.20 Unspecified Escherichia coli [E. coli] as the cause of diseases classified elsewhere; Z79.899 Other long term (current) drug therapy; Z28.310 Unvaccinated for COVID-19; Z60.9 Problem related to social environment, unspecified; Z93.1 Gastrostomy status; Z20.822 Contact with and (suspected) exposure to COVID-19
CPT/HCPCS: 36415; 80048; 80053; 80076; 80307; 80320; 80329; 81003; 82947; 83735; 84100; 84132; 84439; 84443; 85025; 85610; 85730; 87070; 87077; 87186; 87205; 87811; 93005; 99285; J1650; J2405; J3480; J7042

== ENCOUNTER 2022-07-03 14:08 | Emergency (ER) | payer OTHER ==
--- OUTSIDE RECORDS SUMMARY | 2022-07-03 14:16 | XMS REPORT | Continuity of Care Document ---
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 yrs)] Future Scheduled Test 1996 00:00:00 COVID-19 Vaccine (1) [facility] [code = COVID-19 Vaccine (1)] Future Scheduled Test 1984 00:00:00 COVID-19 Vaccine (#1) [facility] [code = COVID-19 Vaccine (#1)] Future Scheduled Test 1984 00:00:00 COVID-19 Vaccine (#1) [facility] [code = COVID-19 Vaccine (#1)] Future Scheduled Test 1984 00:00:00 COVID-19 Vaccine (#1) [facility] [code = COVID-19 Vaccine (#1)] Future Scheduled Test 1984 00:00:00 Fluoride Varnish [facility] [code = Fluoride Varnish] Future Scheduled Test 1984 00:00:00 Fluoride Varnish [facility] [code = Fluoride Varnish] Future Scheduled Test 1984 00:00:00 Fluoride Varnish [facility] [code = Fluoride Varnish] Encounters Start End Encounter Admission Attending Care Care Encounter Source Date/Time Date/Time Type Type Clinicians Facility Department ID 2022-05-18 Outpatient [facility] [id number] [place] 14:53:18 [id number] [facility] 2022-01-18 Outpatient [facility] [id number] [place] 04:45:38 [id number] [facility] 2020-10-06 Inpatient HCAPM JOSE [id number] [facility] 00:50:00 11 [facility] 2022-08-10 2022-08-10 Outpatient R [facility] [id number] Univers 09:00:00 09:00:00 [id number] ity [facility] 2022-07-12 2022-07-12 Outpatient R [facility] [id number] -[id number] Univers 13:30:00 13:30:00 [id number] ity [facility] 2022-06-04 2022-06-04 Telephone YARELI Capps 1.2.840.114 [id number] Univers 00:00:00 00:00:00 Williams Jean [facility] 350.1.13.10 ity of [facility] 4.2.7.2.686 [facility] [id number] [address] 2022-05-26 2022-05-26 Emergency X ISAEL INLAKEISHA ERT [id number] Univers 19:02:00 22:40:00 CINDY ity [facility] 2022-05-26 2022-05-26 Emergency Janene Taylor [facility] 1.2.840. 114 [id number] Univers 19:02:00 22:40:00 Cindy Akins 350.1.13.10 ity [facility] 4.2.7.2.686 [facility] [id number] [address] 2022-05-05 2022-05-05 Transition SHARON Araujo 1.2.840.114 [id number] Univers 00:00:00 00:00:00 of Care Henrietta JO 350.1.13.10 ity of [place] 4.2.7.2.686 [facility] [id number] [facility] [address] Branch 2022-04-26 2022-05-04 Inpatient X AMELIE ALMEIDA [facility] [id number] Univers 16:01:00 12:18:00 AMELIE ALMEIDA ity of [facility] 2022-04-26 2022-05-04 [facility] 1.2.840.11 [id number] Univers 16:01:00 12:18:00 [facility] 350.1. 13.10 ity of [place] 4.2.7.2.686 [facility] [id number] [address] ([facility]) 2022-04-28 2022-04-28 Anesthesia Gayle Lino 1.2.840.1 1 [id number] Univers 09:38:00 10:28:00 Event Radu Schroeder 26130.1.1 ity of 3.104.2.7 [place] .3.512673 Medica l .8 [place] 2022-04-28 2022-04-28 [facility] 1.2.840.114 [id number] Univers 09:30:00 10:01:00 Derrell Watters SPECIALTY 350.1.13.10 ity of CARE 4.2.7.2.686 [facility] CENTER AT [id number] [place] stephanie ORLANDO [address] [place] [address] 2022-04-27 2022-04-27 Anesthesia Fawn Johnson 1.2.840.1 [id number] Univers 12:29:50 12:29:50 Event Sabrina Sanchez 42481.1.1 ity of 3.104.2.7 [place] .3.784017 Medica l .8 Branch 2022-04-26 2022-04-26 Travel 1.2.840.1 1.2.511.152 [id number] Univers 00:00:00 00:00:00 48798.1.1 350.1.13.10 ity of 3.104.2.7 4.[place].7.3.698 [place] .3.011924 084.8 Medica l .8 [place] 2022-04-05 2022-04-05 Telephone Catretmichel, 1.2.840.3 [id number] Univers 00:00:00 00:00:00 Mitzy 97888.1.1 ity of 3.104.2.7 [place] .3.352870 Medica l .8 [place] 2022-04-02 2022-04-02 Office [place], 1.2.840.4 [id number] [facility] 11:45:00 11:45:00 Visit Negrito 66476.1.1 ity of [place] 3.104.2.7 [place] .3.011469 Medica l .8 [place]her 2022-04-02 2022-04-02 Travel 1.2.840.1 1.2.001.904 [id number] Univers 00:00:00 00:00:00 80758.1.1 350.1.13.10 ity of 3.104.2.7 4.2.7.3.698 [place] .3.101804 084.8 Medica l .8 [place] 2022-03-24 2022-03-24 Telephone [place], Gal 1.2.840.6 [id number] Univers 00:00:00 00:00:00 57337.1.1 ity of 3.104.2.7 [place] .3.222823 Medica l .8 [place] 2022-03-19 2022-03-19 Telephone Whitlock, Gal 1.2.840.3 [id number] Univers 00:00:00 00:00:00 65736.1.1 ity of 3.104.2.7 [place] .3.579753 Medica l .8 [place] 2022-03-12 2022-03-12 Hospital [facility], 1.2.840.5 [id number] Univers 08:13:00 16:20:00 Encounter Negrito 40252.1.1 it y of [place] 3.104.2.7 [place] .3.498136 Medica l .8 Branch 2022-03-12 2022-03-12 Anesthesia Carley Fregoso 1.2.840.1 [id number] Univers 09:44:00 12:14:00 Event Richard Granados 09199.1.1 ity of 3.104.2.7 [place] .3.948029 Medica l .8 Branch 2022-03-12 2022-03-12 Surgery [place], 1.2.840.7 [id number] Univers 09:54:00 12:12:00 Negrito 68258.1.1 ity of [place] 3.104.2.7 [place] .3.643601 Medica l .8 Branch 2022-03-09 2022-03-09 Laboratory Negrito Simeon 1.2.840.4 [id number] Univers 10:15:00 10:30:00 Only Only, Adc Test 07052.1.1 ity of 3.104.2.7 [place] .3.127839 Medica l .8 Branch 2022-03-09 2022-03-09 Travel 1.2.840.1 1.2.384.042 [id number] Univers 00:00:00 00:00:00 94440.1.1 350.1.13.10 ity of 3.104.2.7 4.2.7.3.698 [place] .3.420747 084.8 Medica l .8 [place] 2022-03-05 2022-03-05 Office [place] 1.2.840.1 [id number] Univers 10:15:00 12:01:28 Visit Negrito 67511.1.1 ity of [place] 3.104.2.7 [place] .3.633512 Medica l .8 Branch 2022-02-25 2022-02-25 [facility] Nathanael Whitlock 1.2.840.1 [id number] Univers 08:04:00 13:21:00 Sonya 34618.1.1 it y of 3.104.2.7 [place] .3.622800 Medica l .8 Branch 2022-02-25 2022-02-25 Surgery Whitlock, Gal 1.2.840.8 [id number] Univers 09:35:00 12:45:00 33624.1.1 ity of 3.104.2.7 [place] .3.248628 Medica l .8 Branch 2022-02-25 2022-02-25 Anesthesia Yung Arita 1.2.840.8 [id number] Univers 11:53:00 12:33:00 Event Cyril Wongbeladee 63586.1.1 ity of 3.104.2.7 [place] .3.512730 Medica l .8 Branch 2022-02-24 2022-02-24 Travel 1.2.840.1 1.2.995.437 [id number] Univers 00:00:00 00:00:00 14740.1.1 350.1.13.10 ity of 3.104.2.7 4.2.7.3.698 [place] .3.368803 084.8 Medica l .8 Branch 2022-02-18 2022-02-18 Orders Doctor 1.2.840.7 [id number] Univers 00:00:00 00:00:00 Only Unassigned, 10772.1.1 ity of [place] 3.104.2.7 [place] .3.104292 Medica l .8 Branch 2022-02-15 2022-02-15 [facility], 1.2.840.4 [id number] Univers 00:00:00 00:00:00 Stephanie Rose 07314.1.1 it y of 3.104.2.7 [place] .3.670205 Medica l .8 Branch 2022-02-09 2022-02-09 Telephone [place], 1.2.840.8 [id number] Univers 00:00:00 00:00:00 Stephanie L 70822.1.1 it y of 3.104.2.7 [place] .3.310879 Medica l .8 Branch 2022-02-08 2022-02-08 Case [place], 1.2.840.3 [id number] [facility] [place] 00:00:00 00:00:00 Management Stephanie Rose 41599.1.1 ity of 3.104.2.7 [place] .3.128903 Medica l .8 Asher 2022-02-04 2022-02-04 Hospital Kamlesh, Gal 1.2.840.3 [id number] Univers 15:17:56 23:59:00 Encounter 46155.1.1 it y of 3.104.2.7 [place] .3.844874 Medica l .8 [place] 2022-02-04 2022-02-04 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 Kamlesh Gal 1.2.840.8 [id number] Univers 15:30:00 15:47:42 Visit [facility] 94471.1.1 ity of 3.104.2.7 [place] .3.625162 Medica l .8 [place]her 2022-02-04 2022-02-04 Office Kamlesh Gal 1.2.840.8 [id number] Univers 13:30:00 14:38:59 Visit 13701.1.1 ity of 3.104.2.7 [place] .3.192313 Medica l .8 [place] 2022-02-04 2022-02-04 Travel 1.2.840.1 1.2.957.510 1545 [id number] Univers 00:00:00 00:00:00 15483.1.1 350.1.13.10 ity of 3.104.2.7 4.2.7.3.698 [place] .3.205575 084.8 Medica l .8 [place] 2021-05-25 2021-05-26 Emergency Claudia, Janene [facility] 1.2.840.114 [id number] 18:28:00 00:07:00 Misa Howe 350.1.13.10 [place] 4.2.7.2.686 [place] [id number] 2020-12-19 2020-12-19 Orders Doctor NEGRITO 1.2.840.114 [id number] 00:00:00 00:00:00 Only Unassigned, NAMRATA 350.1.13.10 [place] [facility] 4.2.7.2.686 [id number] 009 2020-11-28 2020-11-28 Patient Sharon Bunn 1.2.840.114 [id number] 00:00:00 00:00:00 Outreach Micki Jo 350.1.13.10 Daniela 4.2.7.2.686 [id number] 2020-11-27 2020-11-27 Telephone Angie Aguilar 1.2.965.804 [id number] 00:00:00 00:00:00 Gianni Teresa 350.1.13.10 [facility] 4.2.7.2.686 [id number] 2020-10-06 2020-10-06 Outpatient BEE Garcia LABO [id number] [facility] 23:33:00 23:33:[address] Results Test Description Test Time Test Comments Results Result Comments Source COMP. METABOLIC PANEL (73136) 2022-05-27 01:04:32 Test Item Value Reference Range Interpretation Comme nts NA (test code = 3137730429) 135 mmol/L 135-145 K (test code = 9688241592) 2.3 mmol/L 3.5-5 LL CL (test code = 7039180880) 102 mmol/L 98-108 CO2 TOTAL (test code = 9617182441) 21 mmol/L 23-31 L AGAP (test code = 2204160943) 2-16 BUN (test code = 5413603963) 5 mg/dL 7-23 L GLUCOSE (test code = 0932457498) 142 mg/dL 70-110 H CREATININE (test code = 0.68 mg/dL 0.6-1.25 6337900384) TOTAL BILI (test code = 0.6 mg/dL 0.1-1.8 6442100591) CALCIUM (test code = 2458805814) 7.9 mg/dL 8.6-10.6 L T PROTEIN (test code = 2670808947) 7.3 g/dL 6.3-8.2 ALBUMIN (test code = 7828939199) 3.2 g/dL 3.5-5 L ALK PHOS (test code = 0030928113) 100 U/L 34-122 ALTv (test code = 1742-6) 13 U/L 5-50 AST(SGOT) (test code = 1020984496) 17 U/L 13-40 eGFR (test code = 2822548055) mL/min/1.73m2 LU (test code = LU) Association [...] tests). Lab Interpretation (test code = Abnormal 26043-3) General acute hospital WITH [id number] 00:45:16 Test Item Value Reference Range Interpretation Comments WBC (test code = See_Comment [Automated 8376-2) message] The sy stem which generated this result transmitted reference range : 4.20 - 10.70 10*3/?L. The reference range was not used to interpret this result as normal/abnormal . RBC (test code = See_Comment L [Automated 129-8) message] The sy stem which generated this [...] RDW-SD (test code = 49.6 fL 38.5-51.6 78100-8) RDW-CV (test code = 15.1 % 12.1-15.4 788-0) PLT (test code = See_Comment [Automated 777-3) message] The sy stem which generated this result transmitted reference range : 150 - 328 10*3/ ?L. The reference r alisson was not used to interpret this result as normal/abnormal . MPV (test code = 11.2 fL 9.8-13 26084-4) NRBC/100 WBC (test See_Comment [Automat ed code = 5779675039) message] The system which generated this result transmitted reference range : 0.0 - 10.0 /100 WBCs. The refer ence range was not u sed to interpret th is result as normal/abnormal . NRBC x10^3 (test code See_Comment [Auto mated = 0077236952) message] The s ystem which generated this result transmitted reference range : 10*3/?L. The reference range was not used to interpret this result as normal/abnormal . GRAN MAT (NEUT) % 72.3 % (test code = 770-8) IMM GRAN % (test code 0.20 % = 8476232261) LYMPH % (test code = 19.9 % 736-9) MONO % (test code = 6.3 % 5905-5) EOS % (test code = 1.0 % 713-8) BASO % (test code = 0.3 % 706-2) GRAN MAT x10^3(ANC) 6.43 10*3/uL 1.99-6.95 (test code = 4193215154) IMM GRAN x10^3 (test 0-0.06 code = 4394246387) LYMPH x10^3 (test code 1.77 10*3/uL 1.09-3.23 = 731-0) MONO x10^3 (test code 0.56 10*3/uL 0.36-1.02 = 742-7) EOS x10^3 (test code = 0.09 10*3/uL 0.06-0.53 711-2) BASO x10^3 (test code 0.03 10*3/uL 0.01-0.09 = 704-7) Lab Interpretation Abnormal (test code = 17111-7) [facility] METABOLIC PANEL (NA, K, CL, CO2, GLUCOSE, BUN, CREATININE, CA)2022-04-29 10:41:04 Test Item Value Reference Range Interpretation Comments NA (test code = 141 mmol/L 135-145 0458388522) K (test code = 4.1 mmol/L 3.5-5 7955571280) CL (test code = 113 mmol/L 98-108 H 5373894069) CO2 TOTAL (test code = 26 mmol/L 23-31 0396227597) AGAP (test code = 2-16 1075806326) BUN (test code = 2 mg/dL 7-23 L 0014968142) GLUCOSE (test code = 77 mg/dL 70-110 7189865703) CREATININE (test code = 0.43 mg/dL 0.6-1.25 L 7325464463) CALCIUM (test code = 7.5 mg/dL 8.6-10.6 L 9002657540) eGFR (test code = mL/min/1.73m2 2242206132) LU (test code = LU) Association of [...] tests). Lab Interpretation Abnormal (test code = 72678-7) [facility] (NA, K, CL, CO2, GLUCOSE, BUN, CREATININE, CA)2022-04-29 10:41:04 Test Item Value Reference Range Interpretation Comments NA (test code = 141 mmol/L 135-145 5607536897) K (test code = 4.1 mmol/L 3.5-5.0 7752940063) CL (test code = 113 mmol/L 98-108 H 3506896565) CO2 TOTAL (test code = 26 mmol/L 23-31 2585348470) AGAP (test code = 2-16 0410442635) BUN (test code = 2 mg/dL 7-23 L 4265223197) GLUCOSE (test code = 77 mg/dL 70-110 4558794893) CREATININE (test code = 0.43 mg/dL 0.60-1.25 L 6574631535) CALCIUM (test code = 7.5 mg/dL 8.6-10.6 L 8238614432) eGFR (test code = mL/min/1.73m2 5296250079) LU (test code = LU) Association of [...] tests). Lab Interpretation Abnormal (test code = 00049-6) [facility]2022-07-06 19:02:20 Test Item Value Reference Range Interpretation Comments MAGNESIUM (test code = 6879718132) 1.7 mg/dL 1.7-2.4 Lab Interpretation (test code = Normal 61780-0) [facility]2022-07-06 19:02:20 Test Item Value Reference Range Interpretation Comments MAGNESIUM (test code = 2192150548) 1.7 mg/dL 1.7-2.4 Lab Interpretation (test code = Normal 09937-7) [facility] (NA, K, CL, CO2, GLUCOSE, BUN, CREATININE, CA)2022-04-28 17:52:13 Test Item Value Reference Range Interpretation Comments NA (test code = 142 mmol/L 135-145 0021045938) K (test code = 2.6 mmol/L 3.5-5 LL 7746944780) CL (test code = 109 mmol/L 98-108 H 7072666240) CO2 TOTAL (test code = 26 mmol/L 23-31 0807859218) AGAP (test code = 2-16 3389098887) BUN (test code = 3 mg/dL 7-23 L 9355169193) GLUCOSE (test code = 95 mg/dL 70-110 7939752701) CREATININE (test code = 0.57 mg/dL 0.6-1.25 L 3955325971) CALCIUM (test code = 7.6 mg/dL 8.6-10.6 L 2600404812) eGFR (test code = mL/min/1.73m2 6336018934) LU (test code = LU) Association of [...] tests). Lab Interpretation Abnormal (test code = 33929-3) [facility] METABOLIC PANEL (NA, K, CL, CO2, GLUCOSE, BUN, CREATININE, CA)2022-04-28 17:52:13 Test Item Value Reference Range Interpretation Comments NA (test code = 142 mmol/L 135-145 6614788899) K (test code = 2.6 mmol/L 3.5-5.0 LL 2080188460) CL (test code = 109 mmol/L 98-108 H 7197331932) CO2 TOTAL (test code = 26 mmol/L 23-31 9967847402) AGAP (test code = 2-16 7961787329) BUN (test code = 3 mg/dL 7-23 L 6556016674) GLUCOSE (test code = 95 mg/dL 70-110 7534659966) CREATININE (test code = 0.57 mg/dL 0.60-1.25 L 2056308871) CALCIUM (test code = 7.6 mg/dL 8.6-10.6 L 9287332871) eGFR (test code = mL/min/1.73m2 8230471591) LU (test code = LU) Association of [...] tests). Lab Interpretation Abnormal (test code = 52662-3) [facility] METABOLIC PANEL (NA, K, CL, CO2, GLUCOSE, BUN, CREATININE, CA)2022-04-28 17:52:13 Test Item Value Reference Range Interpretation Comments NA (test code = 142 mmol/L 135-145 9728276732) K (test code = 2.6 mmol/L 3.5-5.0 LL 9995965864) CL (test code = 109 mmol/L 98-108 H 0028958876) CO2 TOTAL (test code = 26 mmol/L 23-31 1947141897) AGAP (test code = 2-16 9247660833) BUN (test code = 3 mg/dL 7-23 L 8534552769) GLUCOSE (test code = 95 mg/dL 70-110 2652840505) CREATININE (test code = 0.57 mg/dL 0.60-1.25 L 4033838942) CALCIUM (test code = 7.6 mg/dL 8.6-10.6 L 1611700774) eGFR (test code = mL/min/1.73m2 2542964013) LU (test code = LU) Association of [...] tests). Lab Interpretation Abnormal (test code = 38813-9) General acute hospital WITHOUT [id number] 17:16:02 Test Item Value Reference Range Interpretation Comments WBC (test code = 6690-2) See_Comment [A utomated message] The system [employer]: [employer] generated this result transmit annette reference range : 4.20 - 10.70 10*3/?L. The reference range was not used to interpret this result as normal/abnormal . RBC (test code = 789-8) See_Comment L [Au tomated message] The system [employer]: [employer] generated this result transmit annette reference range [...] 777-3) See_Comment [Au tomated message] The system [employer]: [employer] generated this result transmit annette reference range : 150 - 328 10*3/?L. The reference range was not used to interpret this result as normal/abnormal . MPV (test code = 10.7 fL 9.8-13 62077-7) RDW-CV (test code = 14.9 % 12.1-15.4 788-0) RDW-SD (test code = 48.9 fL 38.5-51.6 90627-5) NRBC x10^3 (test code = See_Comment [Au tomated message] [id number]) The system [employer]: [employer] generated this result transmit annette reference range : 10*3/?L. The reference range was not used to interpret this result as normal/abnormal . NRBC/100 WBC (test code See_Comment [Au tomated message] = [id number]) The system [employer] generated this result transmit annette reference range : 0.0 - 10.0 /100 WBC s. The reference r alisson was not used to interpret this result as normal/abnormal . IPF % (test code = [id number]) Lab Interpretation (test Abnormal code = 95770-9) General acute hospital WITHOUT [id number] 17:16:02 Test Item Value Reference Range Interpretation Comments WBC (test code = 6690-2) See_Comment [A utomated message] The system [employer]: [employer] generated this result transmit annette reference range : 4.20 - 10.70 10*3/?L. The reference range was not used to interpret this result as normal/abnormal . RBC (test code = 789-8) See_Comment L [Au tomated message] The system [employer]: [employer] generated this result transmit annette reference range [...] 777-3) See_Comment [Au tomated message] The system [employer] generated this result transmit annette reference range : 150 - 328 10*3/?L. The reference range was not used to interpret this result as normal/abnormal . MPV (test code = 10.7 fL 9.8-13.0 22469-1) RDW-CV (test code = 14.9 % 12.1-15.4 788-0) RDW-SD (test code = 48.9 fL 38.5-51.6 52349-6) NRBC x10^3 (test code = <0.01 See_Comment [Au tomated message] 5052106235) The system [employer]: [employer] generated this result transmit annette reference range : 10*3/?L. The reference range was not used to interpret this result as normal/abnormal . NRBC/100 WBC (test code See_Comment [Au tomated message] = 2488061340) The system [facility] generated this result transmit annette reference range : 0.0 - 10.0 /100 WBC s. The reference r alisson was not used to interpret this result as normal/abnormal . IPF % (test code = 6920276656) Lab Interpretation (test Abnormal code = 46800-1) [facility] acute hospital WITHOUT [id number] 17:16:02 Test Item Value Reference Range Interpretation Comments WBC (test code = 6690-2) See_Comment [A utomated message] The system [employer]: [employer] generated this result transmit annette reference range : 4.20 - 10.70 10*3/?L. The reference range was not used to interpret this result as normal/abnormal . RBC (test code = 789-8) See_Comment L [Au tomated message] The system [employer]: [employer] generated this result transmit annette reference range [...] 777-3) See_Comment [Au tomated message] The system [employer]: [employer] generated this result transmit annette reference range : 150 - 328 10*3/?L. The reference range was not used to interpret this result as normal/abnormal . MPV (test code = 10.7 fL 9.8-13.0 23203-1) RDW-CV (test code = 14.9 % 12.1-15.4 788-0) RDW-SD (test code = 48.9 fL 38.5-51.6 99959-2) NRBC x10^3 (test code = <0.01 See_Comment [Au tomated message] 3290953793) The system [employer] generated this result transmit annette reference range : 10*3/?L. The reference range was not used to interpret this result as normal/abnormal . NRBC/100 WBC (test code See_Comment [Au tomated message] = 7475589272) The system [employer] ch generated this result transmit annette reference range : 0.0 - 10.0 /100 WBC s. The reference r alisson was not used to interpret this result as normal/abnormal . IPF % (test code = 5070067070) Lab Interpretation (test Abnormal code = 13442-9) [id number]:31:26 Test Item Value Reference Range Interpretation Comments K (test code = 9812728017) 3.3 mmol/L 3.5-5 L Lab Interpretation (test code = Abnormal 55805-8) [facility] METABOLIC PANEL (NA, K, CL, CO2, GLUCOSE, BUN, CREATININE, CA)2022-04-27 22:31:26 Test Item Value Reference Range Interpretation Comments NA (test code = 144 mmol/L 135-145 0833778286) K (test code = 3.3 mmol/L 3.5-5 L 7972275256) CL (test code = 112 mmol/L 98-108 H 2720791206) CO2 TOTAL (test code = 27 mmol/L 23-31 2564998081) AGAP (test code = 2-16 4013210939) BUN (test code = 5 mg/dL 7-23 L 4112300663) GLUCOSE (test code = 118 mg/dL 70-110 H 6270144355) CREATININE (test code = 0.63 mg/dL 0.6-1.25 4730067474) CALCIUM (test code = 7.6 mg/dL 8.6-10.6 L 6248750780) eGFR (test code = mL/min/1.73m2 3222616944) LU (test code = LU) Association of [...] tests). Lab Interpretation Abnormal (test code = 85174-9) [facility] [id number] 22:31:26 Test Item Value Reference Range Interpretation Comments K (test code = 0353197305) 3.3 mmol/L 3.5-5.0 L Lab Interpretation (test code = Abnormal 71835-6) [facility] [id number] 22:31:26 Test Item Value Reference Range Interpretation Comments K (test code = 6094698988) 3.3 mmol/L 3.5-5.0 L Lab Interpretation (test code = Abnormal 19054-4) [facility] METABOLIC PANEL (NA, K, CL, CO2, GLUCOSE, BUN, CREATININE, CA)2022-04-27 22:31:26 Test Item Value Reference Range Interpretation Comments NA (test code = 144 mmol/L 135-145 9828055326) K (test code = 3.3 mmol/L 3.5-5.0 L 2461619622) CL (test code = 112 mmol/L 98-108 H 3747545991) CO2 TOTAL (test code = 27 mmol/L 23-31 9980722669) AGAP (test code = 2-16 0030585317) BUN (test code = 5 mg/dL 7-23 L 7997496065) GLUCOSE (test code = 118 mg/dL 70-110 H 3734179305) CREATININE (test code = 0.63 mg/dL 0.60-1.25 1720031600) CALCIUM (test code = 7.6 mg/dL 8.6-10.6 L 8912046100) eGFR (test code = mL/min/1.73m2 7598616869) LU (test code = LU) Association of [...] tests). Lab Interpretation Abnormal (test code = 56869-4) [facility] Test Item Value Reference Range Interpretation Comments MAGNESIUM (test code = 6857909638) 2.1 mg/dL 1.7-2.4 Lab Interpretation (test code = Normal 74964-6) [facility]2022-07-05 21:22:49 Test Item Value Reference Range Interpretation Comments MAGNESIUM (test code = 2978430478) 2.1 mg/dL 1.7-2.4 Lab Interpretation (test code = Normal 18653-7) [facility]2022-07-05 21:22:49 Test Item Value Reference Range Interpretation Comments MAGNESIUM (test code = 8712834825) 2.1 mg/dL 1.7-2.4 Lab Interpretation (test code = Normal 01667-0) [facility] METABOLIC PANEL (NA, K, CL, CO2, GLUCOSE, BUN, CREATININE, CA)2022-04-27 15:50:29 Test Item Value Reference Range Interpretation Comments NA (test code = 143 mmol/L 135-145 1075738931) K (test code = 2.4 mmol/L 3.5-5 LL 4827054086) CL (test code = 110 mmol/L 98-108 H 6198210036) CO2 TOTAL (test code = 28 mmol/L 23-31 2321520089) AGAP (test code = 2-16 3271252661) BUN (test code = 4 mg/dL 7-23 L 0782042151) GLUCOSE (test code = 56 mg/dL 70-110 L 0775794905) CREATININE (test code = 0.65 mg/dL 0.6-1.25 1002716488) CALCIUM (test code = 7.7 mg/dL 8.6-10.6 L 0100509120) eGFR (test code = mL/min/1.73m2 3168983697) LU (test code = LU) Association of [...] tests). Lab Interpretation Abnormal (test code = 66687-9) [facility] (NA, K, CL, CO2, GLUCOSE, BUN, CREATININE, CA)2022-04-27 15:50:29 Test Item Value Reference Range Interpretation Comments NA (test code = 143 mmol/L 135-145 1817456931) K (test code = 2.4 mmol/L 3.5-5.0 LL 5937771642) CL (test code = 110 mmol/L 98-108 H 1852803183) CO2 TOTAL (test code = 28 mmol/L 23-31 8338502071) AGAP (test code = 2-16 3922352618) BUN (test code = 4 mg/dL 7-23 L 0173771793) GLUCOSE (test code = 56 mg/dL 70-110 L 0975908752) CREATININE (test code = 0.65 mg/dL 0.60-1.25 8487526042) CALCIUM (test code = 7.7 mg/dL 8.6-10.6 L 6755442686) eGFR (test code = mL/min/1.73m2 6817379357) LU (test code = LU) Association of [...] tests). Lab Interpretation Abnormal (test code = 71293-1) [facility] [id number] 23:23:37 Test Item Value Reference Interpretation Comments Range TROPONIN I (test 0.007 ng/mL See_Comment [Automated code = 2438763873) message] The system which generated this result [...] biotin. Lab Interpretation Normal (test code = 08494-4) [facility]. METABOLIC PANEL (23351)2022-04-26 23:23:37 Test Item Value Reference Range Interpretation Comments NA (test code = 143 mmol/L 135-145 3496655205) K (test code = 2.3 mmol/L 3.5-5 LL 6321389345) CL (test code = 107 mmol/L 98-108 2166139200) CO2 TOTAL (test code = 27 mmol/L 23-31 4674922649) AGAP (test code = 2-16 9608037823) BUN (test code = 4 mg/dL 7-23 L 8086143326) GLUCOSE (test code = 86 mg/dL 70-110 8397796149) CREATININE (test code = 0.73 mg/dL 0.6-1.25 4758118198) TOTAL BILI (test code = 0.7 mg/dL 0.1-1.3 3976840371) CALCIUM (test code = 7.6 mg/dL 8.6-10.6 L 7055953809) T PROTEIN (test code = 6.5 g/dL 6.3-8.2 0455408600) ALBUMIN (test code = 2.7 g/dL 3.5-5 L 9235250313) ALK PHOS (test code = 96 U/L 34-122 0442996251) ALTv (test code = 13 U/L 5-50 1742-6) AST(SGOT) (test code = 22 U/L 13-40 0736158559) eGFR (test code = mL/min/1.73m2 1406971126) UL (test code = LU) Association of Glomerular [...] tests). Lab Interpretation Abnormal (test code = 07039-3) [facility] [id number] 23:23:37 Test Item Value Reference Interpretation Comments Range TROPONIN I (test 0.007 ng/mL See_Comment [Automated code = 8065583019) message] The system which generated this result [...] biotin. Lab Interpretation Normal (test code = 62879-4) [facility] (62650)2022-04-26 23:23:37 Test Item Value Reference Range Interpretation Comments NA (test code = 143 mmol/L 135-145 9173431004) K (test code = 2.3 mmol/L 3.5-5.0 LL 7864883058) CL (test code = 107 mmol/L 98-108 4155720364) CO2 TOTAL (test code = 27 mmol/L 23-31 4541522174) AGAP (test code = 2-16 2208783997) BUN (test code = 4 mg/dL 7-23 L 4865390840) GLUCOSE (test code = 86 mg/dL 70-110 8841807729) CREATININE (test code = 0.73 mg/dL 0.60-1.25 5774560397) TOTAL BILI (test code = 0.7 mg/dL 0.1-1.1 6803949991) CALCIUM (test code = 7.6 mg/dL 8.6-10.6 L 8957891829) T PROTEIN (test code = 6.5 g/dL 6.3-8.2 2799956154) ALBUMIN (test code = 2.7 g/dL 3.5-5.0 L 0370207063) ALK PHOS (test code = 96 U/L 34-122 7069875382) ALTv (test code = 13 U/L 5-50 1742-6) AST(SGOT) (test code = 22 U/L 13-40 9470928650) eGFR (test code = mL/min/1.73m2 8259158366) LU (test code = LU) Association of [...] tests). Lab Interpretation Abnormal (test code = 29294-8) [facility] [id number] 23:23:37 Test Item Value Reference Interpretation Comments Range TROPONIN I (test 0.007 ng/mL See_Comment [Automated code = 2501556476) message] The system which generated this result [...] biotin. Lab Interpretation Normal (test code = 12129-7) [facility] (66640[facility]2022-04-26 23:23:37 Test Item Value Reference Range Interpretation Comments NA (test code = 143 mmol/L 135-145 9201562568) K (test code = 2.3 mmol/L 3.5-5.0 LL 2644994078) CL (test code = 107 mmol/L 98-108 2834068181) CO2 TOTAL (test code = 27 mmol/L 23-31 9559457575) AGAP (test code = 2-16 4714167664) BUN (test code = 4 mg/dL 7-23 L 3017020872) GLUCOSE (test code = 86 mg/dL 70-110 0894784199) CREATININE (test code = 0.73 mg/dL 0.60-1.25 9665758327) TOTAL BILI (test code = 0.7 mg/dL 0.1-1.9 1802222410) CALCIUM (test code = 7.6 mg/dL 8.6-10.6 L 7244267207) T PROTEIN (test code = 6.5 g/dL 6.3-8.2 6714355563) ALBUMIN (test code = 2.7 g/dL 3.5-5.0 L 8908227721) ALK PHOS (test code = 96 U/L 34-122 6613473284) ALTv (test code = 13 U/L 5-50 1742-6) AST(SGOT) (test code = 22 U/L 13-40 1842136025) eGFR (test code = mL/min/1.73m2 3985388755) LU (test code = LU) Association of [...] tests). Lab Interpretation Abnormal (test code = 82422-4) [facility] [id number] 23:20:37 Test Item Value Reference Range Interpretation Comments NT-proBNP (test code 393 pg/mL See_Comment H [Autom ated = 1529657405) message] The system which generated this result transmitted reference range : <=125. The reference range was not used to interpret this result as normal/abnormal . LU (test code = LU) Biotin has been reported to cause a negative bias, interpret results relative to patient's use of biotin. Lab Interpretation Abnormal (test code = 64570-9) [facility] [id number] 23:20:37 Test Item Value Reference Range Interpretation Comments NT-proBNP (test code 393 pg/mL See_Comment H [Autom ated = 4711436385) message] The system which generated this result transmitted reference range : <=125. The reference range was not used to interpret this result as normal/abnormal . LU (test code = LU) Biotin has been reported to cause a negative bias, interpret results relative to patient's use of biotin. Lab Interpretation Abnormal (test code = 91013-0) [facility] [id number] 23:20:37 Test Item Value Reference Range Interpretation Comments NT-proBNP (test code 393 pg/mL See_Comment H [Autom ated = 8042233169) message] The system which generated this result transmitted reference range : <=125. The reference range was not used to interpret this result as normal/abnormal . LU (test code = LU) Biotin has been reported to cause a negative bias, interpret results relative to patient's use of biotin. Lab Interpretation Abnormal (test code = 88932-1) [facility] 23:11:39 Test Item Value Reference Range Interpretation Comments LIPASE (test code = 6493438306) 78 U/L 0-220 Lab Interpretation (test code = Normal 91756-8) [facility] 23:11:39 Test Item Value Reference Range Interpretation Comments LIPASE (test code = 3990546523) 78 U/L 0-220 Lab Interpretation (test code = Normal 67079-9) [facility] 23:11:39 Test Item Value Reference Range Interpretation Comments LIPASE (test code = 9590166881) 78 U/L 0-220 Lab Interpretation (test code = Normal 83320-5) [facility] WITH [id number] 22:55:18 Test Item Value Reference Range Interpretation [...] RDW-SD (test code = 45.2 fL 38.5-51.6 90384-0) RDW-CV (test code = 14.3 % 12.1-15.4 788-0) PLT (test code = See_Comment [Automated 777-3) message] The sy stem which generated this result transmitted reference range : 150 - 328 10*3/ ?L. The reference r alisson was not used to interpret this result as normal/abnormal . MPV (test code = 10.5 fL 9.8-13 88045-8) NRBC/100 WBC (test See_Comment [Automat ed code = 8871756982) message] The system which generated this result transmitted reference range : 0.0 - 10.0 /100 WBCs. The refer ence range was not u sed to interpret th is result as normal/abnormal . NRBC x10^3 (test code See_Comment [Auto mated = 6645939430) message] The s ystem which generated this result transmitted reference range : 10*3/?L. The reference range was not used to interpret this result as normal/abnormal . GRAN MAT (NEUT) % 73.6 % (test code = 770-8) IMM GRAN % (test code 0.30 % = 6154918393) LYMPH % (test code = 20.6 % 736-9) MONO % (test code = 4.9 % 5905-5) EOS % (test code = 0.3 % 713-8) BASO % (test code = 0.3 % 706-2) GRAN MAT x10^3(ANC) 6.49 10*3/uL 1.99-6.95 (test code = 1555394457) IMM GRAN x10^3 (test 0.03 10*3/uL 0-0.06 code = 7900111563) LYMPH x10^3 (test code 1.82 10*3/uL 1.09-3.23 = 731-0) MONO x10^3 (test code 0.43 10*3/uL 0.36-1.02 = 742-7) EOS x10^3 (test code = 0.03 10*3/uL 0.06-0.53 L 711-2) BASO x10^3 (test code 0.03 10*3/uL 0.01-0.09 = 704-7) Lab Interpretation Abnormal (test code = 69162-8) [facility] acute [facility] WITH [id number] 22:55:18 Test Item Value Reference Range Interpretation Comments WBC (test code = See_Comment [Automated 6190-2) message] The sy stem which generated this result transmitted reference range : 4.20 - 10.70 10*3/?L. The reference range was not used to interpret this result as normal/abnormal . RBC (test code = See_Comment L [Automated 939-8) message] The sy stem which generated this [...] RDW-SD (test code = 45.2 fL 38.5-51.6 37148-2) RDW-CV (test code = 14.3 % 12.1-15.4 788-0) PLT (test code = See_Comment [Automated 777-3) message] The sy stem which generated this result transmitted reference range : 150 - 328 10*3/ ?L. The reference r alisson was not used to interpret this result as normal/abnormal . MPV (test code = 10.5 fL 9.8-13.0 55317-3) NRBC/100 WBC (test See_Comment [Automat ed code = 6498190251) message] The system which generated this result transmitted reference range : 0.0 - 10.0 /100 WBCs. The refer ence range was not u sed to interpret th is result as normal/abnormal . NRBC x10^3 (test code <0.01 See_Comment [Auto mated = 2047577223) message] The s ystem which generated this result transmitted reference range : 10*3/?L. The reference range was not used to interpret this result as normal/abnormal . GRAN MAT (NEUT) % 73.6 % (test code = 770-8) IMM GRAN % (test code 0.30 % = 6489166241) LYMPH % (test code = 20.6 % 736-9) MONO % (test code = 4.9 % 5905-5) EOS % (test code = 0.3 % 713-8) BASO % (test code = 0.3 % 706-2) GRAN MAT x10^3(ANC) 6.49 10*3/uL 1.99-6.95 (test code = 7616797894) IMM GRAN x10^3 (test 0.03 10*3/uL 0.00-0.06 code = 8588848002) LYMPH x10^3 (test code 1.82 10*3/uL 1.09-3.23 = 731-0) MONO x10^3 (test code 0.43 10*3/uL 0.36-1.02 = 742-7) EOS x10^3 (test code = 0.03 10*3/uL 0.06-0.53 L 711-2) BASO x10^3 (test code 0.03 10*3/uL 0.01-0.09 = 704-7) Lab Interpretation Abnormal (test code = 02555-6) General acute hospital WITH [id number] 22:55:18 Test Item Value Reference Range Interpretation [...] RDW-SD (test code = 45.2 fL 38.5-51.6 32831-8) RDW-CV (test code = 14.3 % 12.1-15.4 788-0) PLT (test code = See_Comment [Automated 777-3) message] The sy stem which generated this result transmitted reference range : 150 - 328 10*3/ ?L. The reference r alisson was not used to interpret this result as normal/abnormal . MPV (test code = 10.5 fL 9.8-13.0 97441-2) NRBC/100 WBC (test See_Comment [Automat ed code = 1987768049) message] The system which generated this result transmitted reference range : 0.0 - 10.0 /100 WBCs. The refer ence range was not u sed to interpret th is result as normal/abnormal . NRBC x10^3 (test code <0.01 See_Comment [Auto mated = 6350854840) message] The s ystem which generated this result transmitted reference range : 10*3/?L. The reference range was not used to interpret this result as normal/abnormal . GRAN MAT (NEUT) % 73.6 % (test code = 770-8) IMM GRAN % (test code 0.30 % = 8205934815) LYMPH % (test code = 20.6 % 736-9) MONO % (test code = 4.9 % 5905-5) EOS % (test code = 0.3 % 713-8) BASO % (test code = 0.3 % 706-2) GRAN MAT x10^3(ANC) 6.49 10*3/uL 1.99-6.95 (test code = 9855696470) IMM GRAN x10^3 (test 0.03 10*3/uL 0.00-0.06 code = 9633559031) LYMPH x10^3 (test code 1.82 10*3/uL 1.09-3.23 = 731-0) MONO x10^3 (test code 0.43 10*3/uL 0.36-1.02 = 742-7) EOS x10^3 (test code = 0.03 10*3/uL 0.06-0.53 L 711-2) BASO x10^3 (test code 0.03 10*3/uL 0.01-0.09 = 704-7) Lab Interpretation Abnormal (test code = 02137-8) [facility] [id number] 16:42:42 Test Item Value Reference Range Interpretation Comments Case Report (test code Surgical Pathology ? ? = [id number]) ?Case: [id number] ? Authorizing Provider: ?Negrito Simeon MD ? Collected: ? 03/12/2022 1050 ?Ordering Location: ? ? [facility] ? ? ?Received: ?03/12/2022 1656 ? [facility] ?Pathologist: ? Carolin Ruiz MD ? Specimens: ? A) - APPENDIX ? B) - HERNIA SAC, RIGHT INGUINAL, RIGHT INGUINAL HERNIA SAC ? Final Diagnosis (test s7fmkLJrJUPws3kiMQTjdD code = 8999882625) FuZzEwMzNcZnRuYmpcdWMx IHtccnRmMVxhbnNpXGRlZm qxjyeeVMCjWZN3icRdKAWl ZXF3YGK2CjHwSZMiTrp5QB NpSA5flPeskYz7oTrnFGCg gtE7kFKoCNqdt9wySRI9r2 pzuixcBLHmBJpoUm1ieKHx dWcwGbQvRWZeICk4dL23IH KodL2ttCQySAfpzbEcCwJ0 OCtxJAGuCeR3QWOmxWXyOS K9sVsnJWLlgkdeCwU2OIey LEMluwyjZVb8WQbyVYDrlE Q1LZPyrSWwD8PmSBVcFF4x pfj3FFU1BWsdYRWkIyU2SH LgkAYmECKxhXwtYTyph610 XZU7SyMjRGLwdgCaxUbnlF 3uEhHrJTkiAFJyAS2uIBMR AO4VQFumUBGNUBASVBCVUC 9NWTpccGFyICAgICAtIEJF TklHTiBBUFBFTkRJWCBUSV XMKXWaW9iGSKMSNKKMECir V02ES2NKAUjYNoVIQnAOHE SCKEIXGZ6NVYNBOLrsHJJE UL1PJNGCRWYWPIDoqIAsUQ DnikDWWlOeY1nnLmUybUDy SEVSTklBIFNBQywgRVhDSV BHZ627UPVjzbq+ZJ2ovok+ XN2cNRBRYpqRMjMIIMRUAN vSOIvXIEXZSF1KOVAZHQXH I8VUKVHPU4SfQNpDH0OSZV cNUHwnAjZTG8QONGPaT40L A8LYTVxKFjfrDLKndlPeOK SfISSyX05FQ9oQAQVJLLMP DIQNDByNFo9NBYVHKFKepR IjDZVbL9PyLIZeTRPzkrws czIyIExpbmRzYXkgQmlnaG UxGHJNSqQrAW1bZT1zBMXx HFI2MuWmHHLHWOTmeaxesm LsRDAwlp09PRU8CjUyj5W8 UHXdSvJdOIMyAY8goPseUL JyYT6rKHMxY9bszY4sywx1 VvFsIJKnWmO2BNMunlK2Ms n2PGIcMLgtl8ean6WbB9Yh rFRtxOw7d4diIYRuTyR0pW CwOQjfK4tybkFjfIHeILWz QPs9vCjfRuTdKGEwz9wwto BcZmNoYXJzZXQwIENhbGli dki8sA30LNJkcR7iiOLaBF ifppQiYeW7GVghGKIhHlG9 PZWyjMAnBNAhY5yvMAJwEH vlOXIyBNwpdCObBHL3vWqh s5X8vQTxuYCmhAkdHbVlEd CoLGPQj3OfKVm4mGhqB5Ay JSKsKlO7cNBgITYxLQhxTY KaYGKblwA3vL26COaxocY5 lPFsd7Owh91yy644tT9tuB OhQUZ8VDZzMPRyeSOaWAJk UAO4WRMceUQpH1etRVSzCU 9pnfweTHqoRRqxFYChaMA8 LJYegPCqX2HjKXSaGZxqBE Akjgl6QsTnKc2grSLtoGlv SHcpg7pup1zpyNXxYoy8KW LzPyLgDldaYDqon8Hoj5uk RZPqbs8lWPF3yAJevInem6 J4kNRiLVHehHBnsqPfIOZr MgQ2PObuQD7zcg23ZBQbLT W3jo9nsQPimKsafgGrrTIg MOvjN6IgIVEky260EEYfD1 JbBLEly5U4myEwXxEzBCVf aBC2klT2JEZoTQx0mJThzc G0qxKzsQWeQ2dtoR3sNDUa NF1bcryoz3gkTDtlNYeeHD FkkPM6otE5VXKxaYNpU5Tl nF0fSLQyBQkbGBHlwqi6Hm LrFt8jvUPywFbdDVfnVhxm YWdlXHBnbmNvbnRccGduZG VjXHBsYWluXHBsYWluXGYw UKGkXfEabZxjtQmblB8gUe YjYiJdHEmqZD0rVITfV7lq eMOoSAIpZHVjB4mkZiVdvV 9jaFxmMVxjZjJcZnMyMFxw YXIgSSBoYXZlIHBlcnNvbm PfzZevlsB5dLH5ACMbHEse IIHrELUnnEWhqs1jfQanHU JuID1aOYDrzsWlLPizkUbe OHqdNYS4GJTarGKziYIaoC FkZSBieSByZXNpZGVudHMs RJMbuIlop6Gog8YukET6yZ 5th8xhb4EfZXEkkOD2XI05 npT3zH9pCQTyLQ6jXVYvPH 9esSGhsWPePGXoy26daWbz cyByZXBvcnQuXHBsYWluXG YyXGZzMjhcbGFuZzEwMzNc aGljaFxmMlxkYmNoXGYyXG piE9qzSmUbHaLbPDifDAF9 dKdqbnMqZKypr6YzN2SgIk AwMFxhbnNpXGRlZmxhbmcx VBQvVQX6nkGnQCEmJJgxYF GcIKmxRv9bcIKncNfvVkWz UOHbe8uggmEMIIagXbCtU2 98KBRiRCrii4anu8ExBXYh zDIip1N2SOIZbajqoVt0qN inE32hy2E4RgqzN0gmKRXw RLCfA1DjLZ9jAPRcExe0BD D9QIE6GJWqLCGaV6BfNZ2h PENdiVAsKJc4o8zmhEdcXW LsSKR1h4vfRIjhjeF0UQ9b uj7xgDv7o6wmcyLzCXQeAG XgjNOLFDAfC3ZilRbkRj6e tHf6kRzcTmwnTDA7Vni6DD 9ecr65rir9pVvwCTVjkgik XzA2BFysAYClikyuXWc6MY caYDXmnPU5OFRskVUmQ0Mw EQLnWE4ueoy2SNP0WGvnQT XgNnH6DEDzrFTeKMXldFfa DRlyy301HXK2JoTdBT6dA9 Hdf7P9qS1qjKKfPZHfaRGj BhQtOPHiiq3eoLRcYQfdf0 PkF95uuSA3ZTezo6dvSI3h DfL1bvPxSLqsu7xyyW0yYn T2WBceAR6mef20OYBaZQU6 vc9rkGQejJwgkpAguFBiHM leL0BtVDDtg492YAVfF6Ev YIZdb4W6oiRgOgCrKWMbaN I7psW4XHZfNUy6rWMbnlZ0 jiZcpPIyS0stdA2gWEMlQG 0xvsvir9uqMOfeDZyjUBPp uXW8rvJ6BAMmaRNsK3JuvR 3bVPQeIFfxPCCwrnx5WlPv Lm1mtGViiDfhVXsbQnqjTF dlXHBnbmNvbnRccGduZGVj XHBsYWluXHBsYWluXGYwXG JdEvBvqHTmLOexj7WhltPl dYvnHUIjVRq0izWaxxplhM f2kSCuuGujQMAyiAqumG2t AkIaWrZiIRcmRO6tAIMeQ1 sycAAkZFIkWBCfH7tbFwAd hA4paZrsOAehRgGqBxZtVN xsdHJjaFxwYXIgSSBoYXZl NZPjmlQeypKvzBcaxwU6lI Z2EHBpFAzjDCQfNZRhzPDc mg0cvUnaDXVgHY7bEYPbsp JzKJgtaNwcFWphOUF7QBCs bWVudHMgbWFkZSBieSByZX OzKLHnhZKiSGBnnSbkk1Nz b2XdvJA2lE7or7hzx4PnQW HjgGY0BF47sxI4rQ5tRZHs VU4dJCZkLV2dnQBrsQCpRY Tjp04lrLbhbyBzGLScixGe XHBsYWluXGYxXGZzMjBcbG FuZzEwMzNcaGljaFxmMVxk DaYqWQFhSJjwI3mbBoAkK5 YyXGZzMjBccGFyXHBhclxw KMNnr6WqOhGds6pwECbss6 evnIz5FMggcJDgvuvbHRhs bkC6EWAkEJlaVZFmJJIyWM RcbGFuZzEwMzNcaGljaFxm EOvpJcUzFYXgHVgnJ5qxPf WjJ2VhDIRzCEYamSDxW2lh STM0eH1nb5tgv5XdrAHnIk Otu6ljztStUPVliDCjslFw lNFlADKez4QtDNDtKEFzXS GDCp1QRVNitSQgC6a7hGIB JC2vsINrOSSiKSBfY1BiCk YErmRbd6D0UGMmvVKnKTBZ CCXtxYCuH4u6yFneOPyiOw t2YrQzaDqfvP4rWaLoIwEd BArjAW8tAODdV4eskDFfCQ NdTJCmQ9teUmEemZ2zdZdu MVxjZjJcZnMyMFxsdHJjaF ajVUF8eO== Clinical Information RIGHT INGUINAL HERNIA (test code = 7663111909) Gross Description (test d1mvwTYcKAZaqWGLFXGkS4 code = [id number]) gvadWrPOAgnIHuQ6Houbxx PSpcIW3yTB9tmJlirMCbwP SvWM0FXCKjSvVxIDWssMAb xtQzDvGfUHIdlOIhyUE2MN YnOI3shignQYfhGXfhWGYr bdC4FMLdhXElX9VeNICmAM 0gxuypAXX2BFcnvU6amiGN EyzmEj7hmJMywTsrHkCjKt NoYXJzZXQwXGZuaWwgQXJp LOd5aZ7EJyqjFAO7EASYHi zkSLNsVA4Yi4scWXTmiFIg BIH5PKcfiTZrCVXoGLOcUP h9QKYwBZfjdUZnMA9emFbm HlznzFccu0UviFTfGRlnJU GrJLTrTUtmYQWlGP0IAdLd VBW1VLctLVoiUAi5FQj1AK 9WUyAiICAxODgyOTUyMSIg HFl7LPsbBB2PSGY2RkP7EK M1FrwvLMRiUsmcGJr6PQCa XFxmIEFyaWFsIFxcZnMgMT ZjJAvovWNoKS8ezAumyCTj blxmczIwIFNQRUNJTUVOIE MijRSxPV4XDDGyFQivROMv vQGVJZI4IJ8iEGUOVkfwiI EuIOZssRveZHgduZ8mNR6S OFg4zmEyOGSaGiSnX6IjO9 rsNG4xUSJivnFlISNwdHGl PMZzjkTct9RmAAqqftSyNN JlbGVkIHdpdGggdGhlIHBh hZpledYkrnFhOO4xENDSUM KwlL1mYUOaCeGyeGKwKMs4 OqcmSC1hREHgfzKeo4BfAN 9mIGFuIGludGFjdCwgdmVy oVxvr3KwXQJpgOVlFTk0OW w0SuBlW64daD9rgNSnA3Ee QJyeLX19NDCcPZKoxGBjod JdmTOoBAQpcuhzi3e1gGDi nKCiY8qwNHPlOJYsVHBgSB 3qcAxbBB5jCXPfM5N4hUId pMirFYNmLFZyL1Tha16gdH PiU7noDfESgTVsr2Yhs2Wb KOfwLHPehl0bzI9pRADiSQ FhtdVmm71dguBjsBq0TBLm a007rOQ1cTMzKBBjfgbic8 CfXEG8KVXxTAspXxUTjDTo i3AuK1smYR5fnGPyd4WgnA IcsAinn3JyiPvgheHsEXPh ITBfctFjmTB0AZ8ymIhlrf XafTJse3LgHrPwDILxJB0b IPYghKMmDD3tccIlA2lzYt Muka2nTTLknkMgfF62DTTg NSBjbSBpbiBkaWFtZXRlci N9yVD0UBGxxrXyvK6mMZEi R28itF67kjTskP39gcZof8 Fuu84bvVE9BG1iRhZdn40s SfFcWXojgAR4QRNqGBrkQB 1lBNNgriWrpnZ1iT6ubrCk buLyI1Aaz5GmhAYzPFSzyM xjkFUvVhZNHWX3mT8sdjC6 byBpbmNsdWRlIHRoZSBlbi QgVQFqPJJsq1DzzNffkaPk DBLfcF5cVWfje5QdCZTykA UpLCByZXByZXNlbnRhdGl2 UQDicg2npk0kJPC9fK4qGG NriiRsWdacIUX4SKDznWlm ENVhZOOplBHajHE1SYWvtK 0mTIGaACgxcZbemP4yCUMo C21pv6WTt0DuVBAkEUwud6 ijkRium0BwbXJyCUesIBZs tCElEXmkuK6nFjOxu3hrbG j5DPcejqA6EWNylv4BBlav KjdfyBzaa5AwmSIyFZmsYP LuOKQqGUltDDXcMP6KVfNt GXA4RYbyGPdhFRt7AKk0GX 7BWvCcVHYeMRiqGIb4SXIt ZBe7WXrhEU0SNPH4HkQ9XW K5HYSaJMBgHkokWSb9SZHv XFxmIEFyaWFsIFxcZnMgMT HuAHbwlTAhBV0hgTitdrRo IFNQRUNJTUVOIEJccGFyIA 7RCGFsPVwiLCIemMPZYIA0 SB0cXDVAJeaokBJoVBNipW dcPDzqrN2yVZ2VMGa8ulUy TQCgHwPzE7IfK0dzUA0hDn BpcyByZWNlaXZlZCBpbiBm x8MvYUapufZyWRIhnVFqMQ dpdGggdGhlIHBhdGllbnQn myErVJ0kVRMMWFZwmF6zSD TyIlMtbWeivQPnvdg1xQ8i uXRgNIIjnSBns7RwCgmvKR 5fFVXejlAmh2CtWT1sSNIn lNPnBYLmfqplk6TkP8VqSQ Mmv75ddDY7nNRrsEAvIdWt J78wjhCzLXSoGDH3QZBzFJ J6QVNyDjYdmCief2ybG9du nXJxu0AaaRNeuQjdh5AymI lvbmVkIHRvIHJldmVhbCB0 CC4lkWmkgjCqQY0aetAfh0 SoZTS4tTFzeKApBZNnxm4z QJKaxBLyj0NqhQT1pJLiLA HoG3Skm54zUBMsGWZquZZx eMO6KFIazC5lJsXeXKZlzi CWRtjdMUBhSOvBIXI7WGNo amVzdGthLCBQQSAoQVNDUC kNClxwbGFpblxlcGljTmVz qDEbAiZgbEqxyA06YSYuzU VeKPT4NM4lPNHddvsgSKQw XFYpYPX0XVsqvW64fOPsYQ ObYIMziOHudS1GNBQyAIC3 BImvhR54aDTuVE0FWKNdUA Q8DZSlwNXcAEG2MB5ltV0A fQ== Disclaimer (test code = b9mrzVNlGFUqa0xoPFDovS [id number]) FuZzEwMzNcZnRuYmpcdWMx KDirknUcIRvws3BuN5RfHl AwMFxhbnNpXGRlZmxhbmcx IFYvWZS0hcVjZNFaWWroGM AqUKabLy2shETfzWvpKdGn LFZck5crycLZGUdlVlQhG5 73VKQbQPfhi9ojg7IwMEBl fTUyr8B4RYVZnkpbbSw6dG hhZ63hg1I8KwqnA5teSFQs GBDqY7AyQL9nYUBnEbe3CI T8QHG8MGZiXLSzR6IpDC1s EBVdhUGlLJd5c8vctPxnKJ OmOYF3p2luTQwmnzBtEC3t yh2rbRp3g2kbtxBnHUBpBH EftYXQUKCyN6HhxRsnNt2l eOh5nLetHtdnIGJ5Uos5CA 2mvc62dej0iRzaQGRpkmce RzH3NAtmIKSttodkVSz7NC rjWIHcqVA0MHFmbDKeD7Qt BOWoDO7mzlc7WXB1VNfzBA LuFaK2EWHbqPKmIFEzsOoq VNlbf311EWN5TuUnCS4fP7 Cgq3I1oE4iqENrIORnzJHe ZyRgSEQtod9brAGjUCkkj5 CjQKL9kiQ1eDVugUWoDYZg TF59Ldwkh9CaNnudw5PrW5 6okSO0INbdn4deNV1fTqB1 gnMcIHzha0dgpZ7nGkE8KZ tgUH6bGM5zALXsyH9bvacc XHBnYnJkcmhlYWRccGdicm ThQc2ivAxmPLF3WHtlI2ca uQ3lSxV8NVyaI6wvyQ2vEN i4HNycsUH1OBEeaY6xAR5b ptsjr4qqYQdrTTtqOPRxzh U5lyQ5FGZtvTDoY0JllD1w EAFwRC7rootqf0pqVSB9EM jdMXOsOAR5QwYyKMHfy1Vf vww5AcVjy3TotPCjAHyeR5 1tp079GLIchlUaQ3mcoTYi zxncdBDnwgzeQBpkemS5PF JwhgVbu7EcFCBkGRC6DKtg RSixtZLhYFOkmGmxg5lvC1 RscGFyXHBsYWluXGYxXGZz MjBcbGFuZzEwMzNcaGljaF csEWhdHoNcLLTtKDpxC0dd UjRrB0YcKXDvLaAhhGTxG2 ggVGhpcyByZXBvcnQgbWF5 DSnxJ5c0XSHtqyCegPs5mx IxDuMnICXmUXW7JMobaUFp IFGzy2GbdwqhxKLnHi1rgW QbBBEjiI4rCPKjSHFvPApd HH8egEi7ZOKEgBRinZIeLj GPODOtXN51fvPpROEWwctv y9P7NCcsECNgx3XzwHEmP5 nje8MqHOLjm35zQO0qz6H6 w2vkAIX1JB3nx1FjQLYgyI GrsINlKOGrd0Izpudvw4Fj AJPkbeQqd7OiUWNtvmBwtS MxLZVhkdOolo2cbmRuJQVy JTIoK9MtlaexnDacloIvKC Ffbl1qkiTiFSW1TMAEKIKm FVRcp0InqG8ofYKCRCB5pI Jicu0roxBDcTAlHDDbql53 CCUnMI4qE0lhVRJuUWUwql SowSIuu4SpMGDipNN0mTOq QT7LPoVVf79eWKExCCQSeg HvKDTmpHwrjCB9wqV7fT0s IChGREEpLlx+IFRoZSBGRE QmDV4uhyFcy3GymiWysZdx MNUpcYKuz6KayLUff1SsgP scy1HusKFzuINbUS0sGJQa clxwYXIgVVRNQiBMYWJvcm A8k9TgJZAvRZThBZW3cScz bzr5PVMduL2fWJUmZ6gkgw zcIYkzXXUco8OkrO7vkCYV rCIdl4GynBDomSXJmZVvIB 6izjOyUSpBUKsBTXO7iwOa HOElc9GcYQznJ5eyF03lrT gbuJp6wXU9CGI1oE0mThs+ IFxwYXJccGFyIEFwcHJvcH MfPHHclWdcofAiV5GelwFi lL1fvAAwskVxSP3kOA5bW1 E1iCYjHSPpaiSmf1grVCax dmUgYmVlbiByZXZpZXdlZC Uvm7WgXPleRSU8LTywgsJi bmNsdWRpbmcgSCZFLCBTcG JlbINvYXX8HAnwwqDdsbJr BQ1fmA0suSnpgO3jjJVqkQ X8epxmBRHkCLYnxTprYSFp ZN0yhVQtZXLdqkQZpClvoA HhpR5oN6MbLSImVFXsud9c QSTvtH2qETrmu6FpmbqcKB JkZJHiXLOsggEsrk4mYPUx kSXYGF3QOSuchPRts3Ehwc ZvE0qBTIG7VZIdItRkKwvs MHVehUShyAUkYZEjme39RE MjmU3fxCjpCTIlxH5yaI8s eEdjzK0bLaDwJkJgATakMW 0sJJXyH9twuIAhWTRzXGRs Z1kpCcIzbR2nxLeaYAzpIf ZxIvYqWPxgENK9gK== Embedded Images (test code = 3063281775) [facility] This is a pre-surgical type and screen. ONCE [id number] 17:52:02 Test Item Value Reference Range Interpretation Comments ABO & RH (test AB POSITIVE Performed at [facility] code = 20) [facility] [place] [address] s [id number] Free: [phone] A No. [id number] IAT (test code = Negative Performed a t [facility] 1185) [facility] [address] [place] [address] s [address]Lhjm Free: [phone] A No. [id number] [facility]PRE[facility]IN2022-[facility]-14 23:13:17 Test Item Value Reference Range Interpretation Comments PALB (test code = 86420-9) 20.2 mg/dL 18.0-45.0 Lab Interpretation (test code = Normal 83749-1) [facility] (27193) (ALB,T.PRO,BILI T,BU/BC,ALT,AST,ALK PHOS)2022-02-04 23:05:58 Test Item Value Reference Range Interpretation Comments TOTAL BILI (test code = 1263525842) 0.4 mg/dL 0.1-1.1 BILI UNCON (test code = 2959972103) 0.2 mg/dL 0.1-1.1 BILI CONJ (test code = 4486195293) 0.0 mg/dL 0.0-0.3 T PROTEIN (test code = 0137867845) 7.7 g/dL 6.3-8.2 ALBUMIN (test code = 7218192043) 3.4 g/dL 3.5-5.0 L ALK PHOS (test code = 6160124029) 65 U/L 34-122 ALTv (test code = 1742-6) 11 U/L 5-50 AST(SGOT) (test code = 3410747814) 23 U/L 13-40 Lab Interpretation (test code = Abnormal 37101-3) [facility] [id number] 03:38:00 Test Item Value Reference Range Interpretation Comments AB HEPATITIS A IGM NEGATIVE (test code = HAVMAB) AG HEPATITIS B NEGATIVE SCREEN NEGATIVE SURFACE (test code = HBSAG) AB HEPATITIS B CORE NEGATIVE IGM (test code = HBCMAB) AB HEPATITIS C (test <0.1 RATIO <0.8 S/C RAT ION 0.0 - code = HCVAB) 0.9 NEGATIVE <0.8INDETERMINA TE 0.8 - 0.9POSITI VE >0.9 [id number] 16:06:00 Test Item Value Reference Range Interpretation Comments SURG (test code = SURG) RUN DATE: 10/07/20 [facility] - LAB PAGE 1 RUN TIME: 1607 Specimen Inquiry RUN USER: INTERFACE PATIENT: FIONA SANCHES JR LOC: WINTER U #: [id number] AGE/SX: 35/M ROOM: WINTER RE10/06/20REG DR: Sreekanth Garcia MD : 84 BED: 3 DIS: STATUS: ADM Arcadio TLOC: SPEC #: [id number] RECD: 10/06/20 STATUS: ELZA REQ #: [id number] MIRIAM: 10/06/[address] [facility] [address]: Sreekanth Garcia MD ENTERED: 10/06/20 SP TYPE: SURG OTHR DR: DOES_NOT KNOW No Primary or Family Physician Juan Mcbride MD, Jignesh P MDORDERED: SURG PATH LVL 4 COPIES TO: DOES_NOT KNOW No Primary [place] [address] [address] [email or web address] [address] [place] [address] Arnulfo Cormier MD [address] [address] HISTOLOGY: TISSUE ID BLK PCS KANWAL LEV PROCEDURE DISPOSITION ____ ___ ___ ___ ESOPHAGUS, NOS A 1 2 PROCEDURES: SURG PATH LVL 4 (10/06/20-1245) TISSUES: A. ESOPHAGUS, NOS - ESOPHAGUS BIOPSY CLINICAL HISTORY ESOPHAGEAL FOOD BOLUS, STRICTURE V DYSMOTILITY CONTINUED ON NEXT PAGE RUN DATE: 10/07/20 [facility] PAGE 2 RUN TIME: 1607 Specimen Inquiry RUN USER: INTERFACE SPEC #: [facility]:[id number] PATIENT: FIONA SANCHES JR #[id number] (Continued) CPT CODES CPT CODE(S): 26273 , , , , , , FINAL DIAGNOSIS Esophagus, biopsy: ACUTE ESOPHAGITIS WITH CANDIDIASIS NEGATIVE FOR INTESTINAL METAPLASIA, DYSPLASIA, OR MALIGNANCY GROSS DESCRIPTION Esophagus biopsy. Received in formalin are multiple minute fragments of suarez soft tissue, 0.1 - 0.3 cm. The specimen is filtered in a teabag and entirely submitted as A. ba/nr Grossing performed at [facility] Pathology, [address] [place] [address], [address], [place] [address]. Groover Runner: Abner Steward M.D. MICROSCOPIC DESCRIPTION Esophagus biopsy. [...] indicativ e of the presence code = OUZBJ60DF) ofSARS-CoV -2 RNA, clinical correlation wit h [...] indicativ e of the presence code = PFNTS37FX) ofSARS-CoV -2 RNA, clinical correlation wit h [...] SARS-CoV-2 assa y in vitro. CBC W/AUTO [id number] 13:10:00 Test Item Value Reference Range Interpretation [...] NT WITH AUTO DIFFERENTI AL. CBC W/AUTO [id number] 13:10:00 Test Item Value Reference Range Interpretation [...] CONSISTA NT WITH AUTO DIFFERENTI AL. RBC [id number] 13:10:00 Test Item Value Reference Range Interpretation Comments PLATELET ESTIMATE DECREASED THOUSAND ADEQUATE PLAT ELET COUNT (test code = REVIEWED AND PLTEST) VERIFIED. PLATELET MORPHOLOGY NORMAL (test code = PLTMORPH) CBC W/AUTO [id number] 13:10:00 Test Item Value Reference Range Interpretation [...] NT WITH AUTO DIFFERENTI AL. COMPREHENSIVE METABOLIC [id number] 11:48:00 Test Item Value Reference Range Interpretation [...] TOTAL (test code = ALKP) CBC W/AUTO [id number] 11:33:00 Test Item Value Reference Range Interpretation [...] REQUIRED (test code = DIFF/SCN CRITERIA MDIFF) [id number] 04:59:00 Test Item Value Reference Range Interpretation Comments AMMONIA (test code = AMM) 56 mcMOL/L 11-32 H LACTIC [id number] 04:59:00 Test Item Value Reference Range Interpretation Comments LACTIC ACID (test code = LACT) 0.7 mmol/L 0.4-2.0 N GLUCOSE BEDSIDE [id number] 20:35:00 Test Item Value Reference Range Interpretation Comments GLUCOSE BEDSIDE TESTING (test code 109 mg/dL 70-110 N = GLUBED) GLUCOSE BEDSIDE [id number] 17:10:00 Test Item Value Reference Range Interpretation Comments GLUCOSE BEDSIDE TESTING (test code 105 mg/dL 70-110 N = GLUBED) - US ABDOMEN [id number] 16:39:00 [facility] : 1985 Sex: M Name:FIONA SANCHES JR [facility] : 1985 Age/S: 35 / M [address] Unit #: [id number]: [place] [address] Phys: Matilda Kirk PA-C Acct: [id number] Dis Date: Status: ADM IN PHONE #: [phone] Exam Date: 10/06/2020 1514 FAX #: Reason: elevated lfts, evaluate for cirrhosis EXAMS: CPT: [id number] US ABDOMEN LTD 02976 RIGHT UPPER QUADRANT ULTRASOUND. CLINICAL HISTORY: Elevated [...] Signed Report (CONTINUED) Name: FIONA SANCHES JR [place] : 1985 Age/S: 35 / M [address] [address] Unit #: [id number] Loc: [place] [address] Phys: Matilda Kirk PA-C Acct: [id number] Date: Status: ADM IN PHONE #: [phone] Exam Date: 10/06/2020 1513 FAX #: Reason: elevated lfts, evaluate for cirrhosis EXAMS: CPT: [id number] US ABDOMEN LTD 45568 (Continued) CC: Sreekanth Garcia MD; Matilda Kirk Technologist: Rae Eaton Trnscb Date/Time: 10/06/2020 (3264) MoeAM18 P AGE 1 Signed Report Name: FIONA SANCHES [place]land : 1985 Age/S: 35 / M [address] [address] Unit #: [id number] Loc: [place] [address] Phys: Matilda Kirk PA-C Acct: [id number] Dis Date: Status: ADM IN PHONE #: [phone] Exam Date: 10/06/2020 4087 FAX #: Reason: elevated lfts, evaluate for cirrhosis EXAMS: CPT: [id number] US ABDOMEN LTD [address]1045 (Continued) Orig Print D/T: S: 10/06/2020(4959) Probe: PAGE 3 Signed ReportUA RFLX MICR CULT IF [id number] 15:23:00 Test Item Value Reference Range Interpretation [...] 92 mg/dL 70-110 N GLUBED) GLUCOSE BEDSIDE [id number] 13:37:00 Test Item Value Reference Range Interpretation Comments GLUCOSE BEDSIDE TESTING (test code = 58 mg/dL 70-110 L GLUBED) CREATINE KINASE (CK)2020-10-06 11:26:00 Test Item Value Reference Range Interpretation Comments CREATINE KINASE (CK) (test code = 287 Unit/L 26-192 H CK) [id number] 11:26:00 Test Item Value Reference Range Interpretation Comments AMYLASE (test code = JOSE CARLOS) 120 Unit/L 25-115 H [id number] 11:26:00 Test Item Value Reference Range Interpretation Comments LIPASE (test code = LIP) 112 Unit/L 114-286 L CBC W/AUTO [id number] 09:58:00 Test Item Value Reference Range Interpretation [...] DIFF/SCN CRITERIA (test code = MDIFF) WBC [id number] 09:58:00 Test Item Value Reference Range Interpretation [...] NORMAL (test code = PLTMORPH) CBC W/AUTO [id number] 09:55:00 Test Item Value Reference Range Interpretation [...] DIFF/SCN CRITERIA (test code = MDIFF) WBC [id number] 09:55:00 Test Item Value Reference Range Interpretation Comments SEGMENTED NEUTROPHILS (test code = SEG) % 40-75 LYMPHOCYTE (test code = LYMPH) % 12.6-43.5 CBC W/AUTO [id number] 09:55:00 Test Item Value Reference Range Interpretation [...] DIFF/SCN CRITERIA (test code = MDIFF) WBC [id number] 09:55:00 Test Item Value Reference Range Interpretation Comments SEGMENTED NEUTROPHILS (test code = SEG) % 40-75 LYMPHOCYTE (test code = LYMPH) % 12.6-43.5 COMPREHENSIVE METABOLIC [id number] 09:14:00 Test Item Value Reference Range Interpretation [...] TOTAL (test code = ALKP) CBC W/AUTO [id number] 09:02:00 Test Item Value Reference Range Interpretation [...] CRITERIA (test code = MDIFF) GLUCOSE BEDSIDE [id number] 06:41:00 Test Item Value Reference Range Interpretation Comments GLUCOSE BEDSIDE TESTING (test code = 65 mg/dL 70-110 L GLUBED) COVID 19 INHOUSE [id number] 05:40:00 Test Item Value Reference Range Interpretation Comments COVID 19 INHOUSE AG NEGATIVE Negative Per manu facturer, (test code = negative result s should [id number]) be treated aspr esumptive and, if inconsi [...] co nsistent with COVID-19. - CT CHEST [id number] 03:30:00 [facility] : 1985 Sex: M Name:FIONA SANCHES JR [facility] : 1985 Age/S: 35 / M [address] [address] Unit #: [id number] Loc: [place] [address] Phys: Scott Person MD Acct: [id number] Dis Date: Status: REG ER PHONE #:[phone] Exam Date: 10/06/2020 0245 FAX #: Reason: possible esophageal pneumatosis EXAMS: CPT: [id number] CT CHEST W/CONTRAST 84294 DICTATION LOCATION: H48 HISTORY: Male, 35 years of age with esophageal pain for 2 months; evaluate for esophageal pneumatosis EXAM: CT CHEST WITH IV CONTRAST (ROUTINE)COMPARISON: None TECHNIQUE: Helical axial images were obtained through the chest with 100 mL nonionic IV contrast using the routine chest protocol. Coronal and sagittal reformats were performed. One or more of the following dose reduction techniques were used: Automated exposure control; adjustment ofthe mA and/or kV according to the patient [...] within the esophageal lumen. I do not identifyesophageal intramural pneumatosis or pneumomediastinum. No discrete esophageal mass lesion. There istapered esophageal narrowing at the gastroesophageal junction. PLEURA: [...] [place]land : 1985 Age/S: 35 / M [address] [facility] Unit #: [id number] Loc: [place] [address] Phys: Scott Persno MD Acct: [id number] Dis Date: Status: REG ER PHONE #: [phone] Exam Date: 10/06/2020 0245 FAX #: Reason: possible esophageal pneumatosis EXAMS: CPT: [id number] CT CHEST W/CONTRAST 97289 (Continued) (i.e. scleroderma or dermatomyositis). Infiltrative neoplasm [...] (033) PAGE 2 Signed Report- CT NECK [id number] 03:11:00[facility] : 1985 Sex: M Name:FIONA SANCHES JR [facility] : 1985 Age/S: 35 / M [address] Unit #: [id number] Loc: [place] [address] Phys: Scott Person MD Acct: [id number] Dis Date: Status: REG ER PHONE #:[phone] Exam Date: 10/06/2020 0250 FAX #: Reason: possible esophageal pneumatosis EXAMS: CPT: [id number] CT NECK W/CONTRAST 06831 EXAM: - CT NECK W/CONTRAST LOCATION: H57 INDICATION: 35 years -oldMale with possible esophageal pneumatosis COMPARISON: None available at time of interpretation. TECHNIQUE: Contrast enhanced CT of the neck with sagittal and coronal reformats. This exam was performedaccording to our departmental dose-optimization program, which includes [...] tissues are unremarkable. Please refer to dedicated concurrentCT chest for additional thoracic findings. IMPRESSION: Unremarkable CT neck. at 0311 Reported and signed by: Gianni Otero M.D. PAGE 1 Signed Report (CONTINUED) Name: FIONA SANCHES JR : 1985 Age/S: 35 / M [address] Unit #: [id number] Loc: [place] [address] Phys: Scott Person MD Acct: [id number] Dis Date: Status: REG ER PHONE #: [phone] Exam Date: 10/06/2020 0250 FAX #: Reason: possible esophageal pneumatosis EXAMS: CPT: [id number] CT NECK W/CONTRAST 57166 (Continued) CC: Technologist:Valentine Momin, RT(R)(CT); CTDI: DLP: Trnscb Date/Time: 10/06/2020 (310) [email or web address] Orig Print D/T: S: 10/06/2020 (313) PAGE 2 Signed ReportBASIC METABOLIC [id number] 02:14:00 Test Item Value Reference Range Interpretation [...]
--- NOTE | 2022-07-03 15:02 | ER ---
Nurse's Notes [facility] Name: Tahir Ag Jr Age: 37 yrs Sex: Male : 1985 Arrival Date: 07/03/2022 Time: 14:14 Bed External Waiting [facility] MD: Diagnosis: Gastrostomy complications;Gastrostomy status;Achalasia of cardia Presentation: 07/03 14:14 Chief complaint: Patient states: leaky peg tube since last night. PT is requesting ss something to drink. Coronavirus screen: Client denies travel out of the [place] in the last 14 days. Ebola Screen: Patient denies exposure to infectious person. Patient denies travel to an Ebola-affected area in the 21 days before illness onset. Initial Sepsis Screen: Does the patient meet any 2 criteria? No. Patient's initial sepsis screen is negative. Does the patient have a suspected source of infection? No. Patient's initial sepsis screen is negative. Risk Assessment: Do you want to hurt yourself or someone else? Patient reports no desire to harm self or others. Onset of symptoms was July 02, 2022. 14:14 Method Of Arrival: Ambulatory ss 14:14 Acuity: MARTINA 4 ss Historical: - Allergies: 14:15 No Known Allergies; ss - PMHx: 14:15 achalasia; Bipolar disorder; Diabetes - NIDDM; Hernia; Hypertension; Schizophrenia; ss Seizure; - PSHx: 14:15 gastrostomy tube; ss - Immunization history:: Client reports receiving the 2nd dose of the Covid vaccine. - Social history:: Smoking status: Patient reports the use of cigarette tobacco products, smokes one pack cigarettes per day. - Family history:: not pertinent. Assessment: 14:45 General: pt not in room at this time. pt had been seen walking to bathroom and to get jh6 water 10 min prior. Vital Signs: 14:14 BP 95 / 64; Pulse 58; Resp 16; Temp 97.6(O); Pulse Ox 100% on R/A; Weight 44.45 kg; ss Height 5 ft. 5 in. (165.10 cm); Pain 0/10; 14:14 Body Mass Index 16.31 (44.45 kg, 165.10 cm) ED Course: 14:14 Patient arrived in ED. ss 14:15 Triage completed. 14:15 Arm band placed on right wrist. 14:16 Kandace Hernandez, RN is Primary Nurse. [facility] 14:16 Keshawn Fish MD is Attending Physician. [facility] 15:21 Milton Ramírez MD is Referral Physician. [facility] Administered Medications: No medications were administered Outcome: 15:01 Patient left the ED. kr3 15:23 Patient left the ED. ss Signatures: Keshawn Fish MD MD cha Smirch, Shelby RN RN Kandace Hernandez, RN RN [facility] Dodie Kan RN RN 3
--- NOTE | 2022-07-03 15:24 | EDPHYS ---
Physician Documentation [facility] Name: Tahir Ag Jr Age: 37 yrs Sex: Male : 1985 Arrival Date: 07/03/2022 Time: 14:14 Bed External Waiting Private MD: NEO Physician Keshawn Fish HPI: 07/03 15:16 This 37 yrs old Black Male presents to ER via Ambulatory with complaints of Problem daniel With Feeding Tube. 15:16 The patient presents with abdominal pain in the upper abdomen, peg leaking. Onset: The daniel symptoms/episode began/occurred 2 day(s) ago. The patient was previously evaluated in the emergency department 5 day(s) ago. Previous care: gi follow up. Historical: - Allergies: 14:15 No Known Allergies; ss - PMHx: 14:15 achalasia; Bipolar disorder; Diabetes - NIDDM; Hernia; Hypertension; Schizophrenia; ss Seizure; - PSHx: 14:15 gastrostomy tube; ss - Immunization history:: Client reports receiving the 2nd dose of the Covid vaccine. - Social history:: Smoking status: Patient reports the use of cigarette tobacco products, smokes one pack cigarettes per day. - Family history:: not pertinent. ROS: 15:16 Constitutional: Negative for fever, chills, and weight loss, Eyes: Negative for injury, daniel pain, redness, and discharge, ENT: Negative for injury, pain, and discharge, Neck: Negative for injury, pain, and swelling, Cardiovascular: Negative for chest pain, palpitations, and edema, Respiratory: Negative for shortness of breath, cough, wheezing, and pleuritic chest pain, Back: Negative for injury and pain, : Negative for injury, bleeding, discharge, and swelling, MS/Extremity: Negative for injury and deformity, Skin: Negative for injury, rash, and discoloration, Neuro: Negative for headache, weakness, numbness, tingling, and seizure, Psych: Negative for depression, anxiety, suicide ideation, homicidal ideation, and hallucinations, Allergy/Immunology: Negative for hives, rash, and allergies, Endocrine: Negative for neck swelling, polydipsia, polyuria, polyphagia, and marked weight changes, Hematologic/Lymphatic: Negative for swollen nodes, abnormal bleeding, and unusual bruising. 15:16 Abdomen/GI: Positive for abdominal pain, of the left upper quadrant. Exam: 15:16 Constitutional: This is a well developed, well nourished patient who is awake, alert, daniel and in no acute distress. Head/Face: Normocephalic, atraumatic. Eyes: Pupils equal round and reactive to light, extra-ocular motions intact. Lids and lashes normal. Conjunctiva and sclera are non-icteric and not injected. Cornea within normal limits. Periorbital areas with no swelling, redness, or edema. ENT: Nares patent. No nasal discharge, no septal abnormalities noted. Tympanic membranes are normal and external auditory canals are clear. Oropharynx with no redness, swelling, or masses, exudates, or evidence of obstruction, uvula midline. Mucous membranes moist. Neck: Trachea midline, no thyromegaly or masses palpated, and no cervical lymphadenopathy. Supple, full range of motion without nuchal rigidity, or vertebral point tenderness. No Meningismus. Chest/axilla: Normal chest wall appearance and motion. Nontender with no deformity. No lesions are appreciated. Cardiovascular: Regular rate and rhythm with a normal S1 and S2. No gallops, murmurs, or rubs. Normal PMI, no JVD. No pulse deficits. Respiratory: Lungs have equal breath sounds bilaterally, clear to auscultation and percussion. No rales, rhonchi or wheezes noted. No increased work of breathing, no retractions or nasal flaring. Back: No spinal tenderness. No costovertebral tenderness. Full range of motion. Male : Normal genitalia with no discharge or lesions. Skin: Warm, dry with normal turgor. Normal color with no rashes, no lesions, and no evidence of cellulitis. MS/ Extremity: Pulses equal, no cyanosis. Neurovascular intact. Full, normal range of motion. Neuro: Awake and alert, GCS 15, oriented to person, place, time, and situation. Cranial nerves II-XII grossly intact. Motor strength 5/5 in all extremities. Sensory grossly intact. Cerebellar exam normal. Normal gait. Psych: Awake, alert, with orientation to person, place and time. Behavior, mood, and affect are within normal limits. 15:16 Abdomen/GI: Inspection: scaphoid with peg, minimal drainage. Vital Signs: 14:14 BP 95 / 64; Pulse 58; Resp 16; Temp 97.6(O); Pulse Ox 100% on R/A; Weight 44.45 kg; ss Height 5 ft. 5 in. (165.10 cm); Pain 0/10; 14:14 Body Mass Index 16.31 (44.45 kg, 165.10 cm) ss MDM: 14:16 Patient medically screened. [facility] 15:22 Data reviewed: vital signs, nurses notes, EMS record. [facility] 07/03 14:49 Order name: EKG; Complete Time: 14:50 [facility] 07/03 14:49 Order name: Cardiac monitoring [facility] 07/03 14:49 Order name: EKG - Nurse/Tech [facility] 07/03 14:49 Order name: IV Saline Lock [facility] 07/03 14:49 Order name: Labs collected and sent [facility] 07/03 14:49 Order name: O2 Per Protocol [facility] 07/03 14:49 Order name: O2 Sat Monitoring daniel Administered Medications: No medications were administered Disposition Summary: 07/03/22 15:01 Eloped Disposition: after being seen by provider kr3 Reason: unknown kr3 Problem: an ongoing problem daniel Symptoms: are unchanged daniel Condition: Stable daniel Diagnosis - Gastrostomy complications daniel - Gastrostomy status daniel - Achalasia of cardia daniel Followup: daniel - With: Milton Ramírez MD - When: 2 - 3 days - Reason: Recheck today's complaints, Re-evaluation by your physician Signatures: Dispatcher [employer] Keshawn Silva MD MD cha Smirch, Shelby, RN RN Dodie Kan RN RN kr3
[2022-07-03 16:13] VITALS: BP 95/64; TEMP 97.6; O2SAT 100
== END 2022-07-03 15:23 | disposition left against medical advice (07) ==
LOC: ER 14:08
DX: K94.29 Other complications of gastrostomy (principal); K22.0 Achalasia of cardia; F17.210 Nicotine dependence, cigarettes, uncomplicated
CPT/HCPCS: 99281

== ENCOUNTER 2022-07-06 07:56 | Emergency (ER) | payer OTHER ==
--- OUTSIDE RECORDS SUMMARY | 2022-07-06 08:06 | XMS REPORT | Continuity of Care Document ---
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 [facility] 403 Branch 2022-04-26 2022-05-04 Inpatient X AMELIE ALMEIDA [facility] [id number] Univers 16:01:00 12:18:00 AMELIE ALMEIDA ity of [facility] 2022-04-26 2022-05-04 [facility] 1.2.840.11 4 [id number] Univers 16:01:00 12:18:00 [facility] 350.1. 13.10 ity of [place] 4.2.7.2.686 [facility] [id number] [address] ([facility]) 2022-04-28 2022-04-28 Anesthesia Gayle Lino 1.2.840.1 1 [id number] Univers 09:38:00 10:28:00 Event Radu Schroeder 16128.1.1 ity of 3.104.2.7 [place] .3.491420 Medica l .8 Branch 2022-04-28 2022-04-28 [facility] 1.2.840.114 [id number] Univers 09:30:00 10:01:00 Derrell NAJERA 350.1.13.10 ity of CARE 4.2.7.2.686 [facility] AT [id number] Vt stephanie [place] 020 [facility] 2022-04-27 2022-04-27 Anesthesia Fawn Johnson 1.2.840.1 [id number] Univers 12:29:50 12:29:50 Event Sabrina Sanchez 79687.1.1 ity of 3.104.2.7 [place] .3.851734 Medica l .8 Branch 2022-04-26 2022-04-26 Travel 1.2.840.1 1.2.288.447 [id number] Univers 00:00:00 00:00:00 55806.1.1 350.1.13.10 ity of 3.104.2.7 4.[place].7.3.698 [place] .3.344291 084.8 Medica l .8 Branch 2022-04-05 2022-04-05 Telephone Catjamliat, 1.2.840.0 [id number] Univers 00:00:00 00:00:00 Mitzy 70018.1.1 ity of 3.104.2.7 [place] .3.928776 Medica l .8 Branch 2022-04-02 2022-04-02 Office Walker, 1.2.840.9 [id number] Univers 11:45:00 11:45:00 Visit Negrito 00030.1.1 ity of [place] 3.104.2.7 [place] .3.193382 Medica l .8 Branch 2022-04-02 2022-04-02 Travel 1.2.840.1 1.2.939.483 [id number] Univers 00:00:00 00:00:00 25178.1.1 350.1.13.10 ity of 3.104.2.7 4.[place].7.3.698 [place] .3.989810 084.8 Medica l .8 Branch 2022-03-24 2022-03-24 Telephone Kamlesh Gal 1.2.840.4 [id number] Univers 00:00:00 00:00:00 35646.1.1 ity of 3.104.2.7 [place] .3.215857 Medica l .8 Branch 2022-03-19 2022-03-19 Telephone Kamlesh Gal 1.2.840.1 [id number] Univers 00:00:00 00:00:00 74136.1.1 ity of 3.104.2.7 [place] .3.373810 Medica l .8 [place] 2022-03-12 2022-03-12 [facility] [place], 1.2.840.4 [id number] Univers 08:13:00 16:20:00 Encounter Negrito 23843.1.1 it y of [place] 3.104.2.7 [place] .3.068899 Medica l .8 [place] 2022-03-12 2022-03-12 Anesthesia Carley Fregoso 1.2.840.1 [id number] Univers 09:44:00 12:14:00 Event Richard Granados 40701.1.1 ity of 3.104.2.7 [place] .3.261175 Medica l .8 [place] 2022-03-12 2022-03-12 Surgery [place], 1.2.840.5 [id number] Univers 09:54:00 12:12:00 Negrito 17146.1.1 ity of [place] 3.104.2.7 [place] .3.095029 Medica l .8 [place] 2022-03-09 2022-03-09 Laboratory Negrito Simeon 1.2.840.4 [id number] Univers 10:15:00 10:30:00 Only Only, Adc Test 76135.1.1 ity of 3.104.2.7 [place] .3.361821 Medica l .8 [place] 2022-03-09 2022-03-09 Travel 1.2.840.1 1.2.248.925 0500 0095 Univers 00:00:00 00:00:00 52974.1.1 350.1.13.10 ity of 3.104.2.7 4.[place].7.3.698 [place] .3.589118 084.8 Medica l .8 [place] 2022-03-05 2022-03-05 Office [place] 1.2.840.6 [id number] Univers 10:15:00 12:01:28 Visit Negrito 53578.1.1 ity of [place] 3.104.2.7 [place] .3.816424 Medica l .8 Branch 2022-02-25 2022-02-25 [facility], Gal 1.2.840.0 [id number] Univers 08:04:00 13:21:00 Encounter 05154.1.1 it y of 3.104.2.7 [place] .3.342873 Medica l .8 Branch 2022-02-25 2022-02-25 [facility], Gal 1.2.840.7 [id number] Univers 09:35:00 12:45:00 23164.1.1 ity of 3.104.2.7 [place] .3.163725 Medica l .8 Branch 2022-02-25 2022-02-25 Anesthesia AritaLuis Enriquejose Saw 1.2.840.6 056 [id number] Univers 11:53:00 12:33:00 Event Francis Wong 23758.1.1 ity of 3.104.2.7 [place] .3.975954 Medica l .8 Branch 2022-02-24 2022-02-24 Travel 1.2.840.1 1.2.120.790 1749 [id number] Univers 00:00:00 00:00:00 08079.1.1 350.1.13.10 ity of 3.104.2.7 4.2.7.3.698 [place] .3.424972 084.8 Medica l .8 Branch 2022-02-18 2022-02-18 Orders Doctor 1.2.840.0 [id number] Univers 00:00:00 00:00:00 Only Unassigned, 75080.1.1 ity of [place] 3.104.2.7 [place] .3.343418 Medica l .8 Branch 2022-02-15 2022-02-15 Telephone [place], 1.2.840.8 [id number] Univers 00:00:00 00:00:00 Stephanie Rose 94795.1.1 it y of 3.104.2.7 [place] .3.277067 Medica l .8 Branch 2022-02-09 2022-02-09 Telephone [place], 1.2.840.3 [id number] Univers 00:00:00 00:00:00 Stephanie Rose 95005.1.1 it y of 3.104.2.7 [place] .3.090624 Medica l .8 Branch 2022-02-08 2022-02-08 Case [place], 1.2.840.5 [id number] Univers 00:00:00 00:00:00 Management Stephanie Rose 25201.1.1 ity of 3.104.2.7 [place] .3.675782 Medica l .8 Branch 2022-02-04 2022-02-04 [facility], Gal 1.2.840.8 [id number] Univers 15:17:56 23:59:00 Encounter 09518.1.1 it y of 3.104.2.7 [place] .3.344142 Medica l .8 Branch 2022-02-04 2022-02-04 [place] Department 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 Kamlesh Gal 1.2.840.1 [id number] Univers 15:30:00 15:47:42 Visit [facility] 64787.1.1 ity of 3.104.2.7 [place] .3.382602 Medica l .8 Branch 2022-02-04 2022-02-04 Office [place], Gal 1.2.840.1 [id number] Univers 13:30:00 14:38:59 Visit 73456.1.1 ity of 3.104.2.7 [place] .3.256383 Medica l .8 Branch 2022-02-04 2022-02-04 Travel 1.2.840.1 1.2.900.267 4236 [id number] Univers 00:00:00 00:00:00 53040.1.1 350.1.13.10 ity of 3.104.2.7 4.2.7.3.698 [place] .3.932688 084.8 Medica l .8 Branch 2021-05-25 2021-05-26 Emergency Janene Taylor [facility] 1.2.840.114 [id number] 18:28:00 00:07:00 Misa Howe 350.1.13.10 [place] 4.2.7.2.686 [place] [id number] 084 2020-12-19 2020-12-19 Orders Doctor NEGRITO 1.2.840.114 [id number] 00:00:00 00:00:00 Only Unassjean NAMRATA 350.1.13.10 [place] [facility] 4.2.7.2.686 [id number] 009 2020-11-28 2020-11-28 Patient Sharon Bunn 1.2.840.114 [id number] 00:00:00 00:00:00 Outreach Micki Wilson 350.1.13.10 [place] 4.2.7.2.686 [id number] 403 2020-11-27 2020-11-27 Telephone JeffAngie 1.2.586.974 1105 [id number] 00:00:00 00:00:00 Gianni Teresa 350.1.13.10 [place] [address].2.7.2.686 [id number] 093 2020-10-06 2020-10-06 Outpatient CHELSIE Garcia LABO [id number] [facility] 23:33:00 23:33:[address] Results Test Description Test Time Test Comments Results Result Comments Source COMP. METABOLIC PANEL (26457) 2022-05-27 01:04:32 Test Item Value Reference Range Interpretation Comme nts NA (test code = 5220878060) 135 mmol/L 135-145 K (test code = 8752390408) 2.3 mmol/L 3.5-5 LL CL (test code = 7358239626) 102 mmol/L 98-108 CO2 TOTAL (test code = 6304045745) 21 mmol/L 23-31 L AGAP (test code = 5710040311) 2-16 BUN (test code = 6585497402) 5 mg/dL 7-23 L GLUCOSE (test code = 9127619205) 142 mg/dL 70-110 H CREATININE (test code = 0.68 mg/dL 0.6-1.25 6411949454) TOTAL BILI (test code = 0.6 mg/dL 0.1-1.2 5419963563) CALCIUM (test code = 5045421968) 7.9 mg/dL 8.6-10.6 L T PROTEIN (test code = 9831078373) 7.3 g/dL 6.3-8.2 ALBUMIN (test code = 9299944883) 3.2 g/dL 3.5-5 L ALK PHOS (test code = 0764974108) 100 U/L 34-122 ALTv (test code = 1742-6) 13 U/L 5-50 AST(SGOT) (test code = 9105016959) 17 U/L 13-40 eGFR (test code = 5088408032) mL/min/1.73m2 LU (test code = LU) Association [...] tests). Lab Interpretation (test code = Abnormal 74204-2) [facility] WITH [id number] 00:45:16 Test Item Value Reference Range Interpretation [...] RDW-SD (test code = 49.6 fL 38.5-51.6 24431-4) RDW-CV (test code = 15.1 % 12.1-15.4 788-0) PLT (test code = See_Comment [Automated 777-3) message] The sy stem which generated this result transmitted reference range : 150 - 328 10*3/ ?L. The reference r alisson was not used to interpret this result as normal/abnormal . MPV (test code = 11.2 fL 9.8-13 90007-4) NRBC/100 WBC (test See_Comment [Automat ed code = 8629522331) message] The system which generated this result transmitted reference range : 0.0 - 10.0 /100 WBCs. The refer ence range was not u sed to interpret th is result as normal/abnormal . NRBC x10^3 (test code See_Comment [Auto mated = 4786141141) message] The s ystem which generated this result transmitted reference range : 10*3/?L. The reference range was not used to interpret this result as normal/abnormal . GRAN MAT (NEUT) % 72.3 % (test code = 770-8) IMM GRAN % (test code 0.20 % = 9429447841) LYMPH % (test code = 19.9 % 736-9) MONO % (test code = 6.3 % 5905-5) EOS % (test code = 1.0 % 713-8) BASO % (test code = 0.3 % 706-2) GRAN MAT x10^3(ANC) 6.43 10*3/uL 1.99-6.95 (test code = 7176562222) IMM GRAN x10^3 (test 0-0.06 code = 7954723753) LYMPH x10^3 (test code 1.77 10*3/uL 1.09-3.23 = 731-0) MONO x10^3 (test code 0.56 10*3/uL 0.36-1.02 = 742-7) EOS x10^3 (test code = 0.09 10*3/uL 0.06-0.53 711-2) BASO x10^3 (test code 0.03 10*3/uL 0.01-0.09 = 704-7) Lab Interpretation Abnormal (test code = 38142-8) [facility] METABOLIC PANEL (NA, K, CL, CO2, GLUCOSE, BUN, CREATININE, CA)2022-04-29 10:41:04 Test Item Value Reference Range Interpretation Comments NA (test code = 141 mmol/L 135-145 6540947657) K (test code = 4.1 mmol/L 3.5-5 8702914494) CL (test code = 113 mmol/L 98-108 H 8290120608) CO2 TOTAL (test code = 26 mmol/L 23-31 3150365758) AGAP (test code = 2-16 7084637219) BUN (test code = 2 mg/dL 7-23 L 8131842005) GLUCOSE (test code = 77 mg/dL 70-110 5142395369) CREATININE (test code = 0.43 mg/dL 0.6-1.25 L 5389575204) CALCIUM (test code = 7.5 mg/dL 8.6-10.6 L 9737332081) eGFR (test code = mL/min/1.73m2 3212189884) LU (test code = LU) Association of [...] tests). Lab Interpretation Abnormal (test code = 62438-6) [facility] (NA, K, CL, CO2, GLUCOSE, BUN, CREATININE, CA)2022-04-29 10:41:04 Test Item Value Reference Range Interpretation Comments NA (test code = 141 mmol/L 135-145 4440824219) K (test code = 4.1 mmol/L 3.5-5.0 3490225230) CL (test code = 113 mmol/L 98-108 H 6741334122) CO2 TOTAL (test code = 26 mmol/L 23-31 9263908783) AGAP (test code = 2-16 0081911917) BUN (test code = 2 mg/dL 7-23 L 1977824711) GLUCOSE (test code = 77 mg/dL 70-110 8151238432) CREATININE (test code = 0.43 mg/dL 0.60-1.25 L 0056228560) CALCIUM (test code = 7.5 mg/dL 8.6-10.6 L 7194178715) eGFR (test code = mL/min/1.73m2 1887048979) LU (test code = LU) Association of [...] tests). Lab Interpretation Abnormal (test code = 88110-2) [facility]2022-07-06 19:02:20 Test Item Value Reference Range Interpretation Comments MAGNESIUM (test code = 4686346258) 1.7 mg/dL 1.7-2.4 Lab Interpretation (test code = Normal 60890-2) [facility]2022-07-06 19:02:20 Test Item Value Reference Range Interpretation Comments MAGNESIUM (test code = 7289026525) 1.7 mg/dL 1.7-2.4 Lab Interpretation (test code = Normal 89360-3) [facility] METABOLIC PANEL (NA, K, CL, CO2, GLUCOSE, BUN, CREATININE, CA)2022-04-28 17:52:13 Test Item Value Reference Range Interpretation Comments NA (test code = 142 mmol/L 135-145 8985862153) K (test code = 2.6 mmol/L 3.5-5 LL 0954301432) CL (test code = 109 mmol/L 98-108 H 9519466112) CO2 TOTAL (test code = 26 mmol/L 23-31 3870994479) AGAP (test code = 2-16 3896640208) BUN (test code = 3 mg/dL 7-23 L 0729085872) GLUCOSE (test code = 95 mg/dL 70-110 7969586961) CREATININE (test code = 0.57 mg/dL 0.6-1.25 L 0755221172) CALCIUM (test code = 7.6 mg/dL 8.6-10.6 L 5664880409) eGFR (test code = mL/min/1.73m2 8497790311) LU (test code = LU) Association of [...] tests). Lab Interpretation Abnormal (test code = 24827-9) [facility] METABOLIC PANEL (NA, K, CL, CO2, GLUCOSE, BUN, CREATININE, CA)2022-04-28 17:52:13 Test Item Value Reference Range Interpretation Comments NA (test code = 142 mmol/L 135-145 1828758849) K (test code = 2.6 mmol/L 3.5-5.0 LL 9736126382) CL (test code = 109 mmol/L 98-108 H 3415186203) CO2 TOTAL (test code = 26 mmol/L 23-31 0472822066) AGAP (test code = 2-16 9679519634) BUN (test code = 3 mg/dL 7-23 L 1474164328) GLUCOSE (test code = 95 mg/dL 70-110 8253976665) CREATININE (test code = 0.57 mg/dL 0.60-1.25 L 4417488373) CALCIUM (test code = 7.6 mg/dL 8.6-10.6 L 1811501227) eGFR (test code = mL/min/1.73m2 3076049089) LU (test code = LU) Association of [...] tests). Lab Interpretation Abnormal (test code = 91779-8) [facility] METABOLIC PANEL (NA, K, CL, CO2, GLUCOSE, BUN, CREATININE, CA)2022-04-28 17:52:13 Test Item Value Reference Range Interpretation Comments NA (test code = 142 mmol/L 135-145 0180063564) K (test code = 2.6 mmol/L 3.5-5.0 LL 1137698238) CL (test code = 109 mmol/L 98-108 H 2593484973) CO2 TOTAL (test code = 26 mmol/L 23-31 8623693469) AGAP (test code = 2-16 1110551048) BUN (test code = 3 mg/dL 7-23 L 5475285019) GLUCOSE (test code = 95 mg/dL 70-110 8180976756) CREATININE (test code = 0.57 mg/dL 0.60-1.25 L 5473111711) CALCIUM (test code = 7.6 mg/dL 8.6-10.6 L 5210259032) eGFR (test code = mL/min/1.73m2 3867489341) UL (test code = LU) Association of [...] tests). Lab Interpretation Abnormal (test code = 80537-0) [facility] WITHOUT [id number] 17:16:02 Test Item Value Reference Range Interpretation Comments WBC (test code = 6690-2) See_Comment [A utomated message] The system [employer] generated this result transmit annette reference range : 4.20 - 10.70 10*3/?L. The reference range was not used to interpret this result as normal/abnormal . RBC (test code = 789-8) See_Comment L [Au tomated message] The system [employer] generated this result transmit annette reference range [...] 777-3) See_Comment [Au tomated message] The system [employer] generated this result transmit annette reference range : 150 - 328 10*3/?L. The reference range was not used to interpret this result as normal/abnormal . MPV (test code = 10.7 fL 9.8-13 58181-0) RDW-CV (test code = 14.9 % 12.1-15.4 788-0) RDW-SD (test code = 48.9 fL 38.5-51.6 59745-7) NRBC x10^3 (test code = See_Comment [Au tomated message] 3291284010) The system [employer] generated this result transmit annette reference range : 10*3/?L. The reference range was not used to interpret this result as normal/abnormal . NRBC/100 WBC (test code See_Comment [Au tomated message] = 9558580697) The system [facility] generated this result transmit annette reference range : 0.0 - 10.0 /100 WBC s. The reference r alisson was not used to interpret this result as normal/abnormal . IPF % (test code = 1927249696) Lab Interpretation (test Abnormal code = 09723-5) [facility] WITHOUT [id number] 17:16:02 Test Item Value Reference Range Interpretation Comments WBC (test code = 6690-2) See_Comment [A utomated message] The system [employer] generated this result transmit annette reference range : 4.20 - 10.70 10*3/?L. The reference range was not used to interpret this result as normal/abnormal . RBC (test code = 789-8) See_Comment L [Au tomated message] The system [employer] generated this result transmit annette reference range [...] 777-3) See_Comment [Au tomated message] The system [employer] generated this result transmit annette reference range : 150 - 328 10*3/?L. The reference range was not used to interpret this result as normal/abnormal . MPV (test code = 10.7 fL 9.8-13.0 97825-7) RDW-CV (test code = 14.9 % 12.1-15.4 788-0) RDW-SD (test code = 48.9 fL 38.5-51.6 33345-4) NRBC x10^3 (test code = <0.01 See_Comment [Au tomated message] 8730001741) The system [employer] generated this result transmit annette reference range : 10*3/?L. The reference range was not used to interpret this result as normal/abnormal . NRBC/100 WBC (test code See_Comment [Au tomated message] = 9207992137) The system [facility] generated this result transmit annette reference range : 0.0 - 10.0 /100 WBC s. The reference r alisson was not used to interpret this result as normal/abnormal . IPF % (test code = 0438531597) Lab Interpretation (test Abnormal code = 50248-5) [facility] WITHOUT [id number] 17:16:02 Test Item Value Reference Range Interpretation Comments WBC (test code = 6690-2) See_Comment [A utomated message] The system [employer] generated this result transmit annette reference range : 4.20 - 10.70 10*3/?L. The reference range was not used to interpret this result as normal/abnormal . RBC (test code = 789-8) See_Comment L [Au tomated message] The system [employer] generated this result transmit annette reference range [...] 777-3) See_Comment [Au tomated message] The system [employer] generated this result transmit annette reference range : 150 - 328 10*3/?L. The reference range was not used to interpret this result as normal/abnormal . MPV (test code = 10.7 fL 9.8-13.0 84323-9) RDW-CV (test code = 14.9 % 12.1-15.4 788-0) RDW-SD (test code = 48.9 fL 38.5-51.6 45469-5) NRBC x10^3 (test code = <0.01 See_Comment [Au tomated message] [id number]) The system [employer] generated this result transmit annette reference range : 10*3/?L. The reference range was not used to interpret this result as normal/abnormal . NRBC/100 WBC (test code See_Comment [Au tomated message] = [id number]) The system [employer] generated this result transmit annette reference range : 0.0 - 10.0 /100 WBC s. The reference r alisson was not used to interpret this result as normal/abnormal . IPF % (test code = [id number]) Lab Interpretation (test Abnormal code = 01416-2) [id number]26 Test Item Value Reference Range Interpretation Comments K (test code = [id number]) 3.3 mmol/L 3.5-5 L Lab Interpretation (test code = Abnormal 35451-5) [facility] METABOLIC PANEL (NA, K, CL, CO2, GLUCOSE, BUN, CREATININE, CA)2022-04-27 22:31:26 Test Item Value Reference Range Interpretation Comments NA (test code = 144 mmol/L 135-145 8565751526) K (test code = 3.3 mmol/L 3.5-5 L 1645567219) CL (test code = 112 mmol/L 98-108 H 3756588878) CO2 TOTAL (test code = 27 mmol/L 23-31 6015438930) AGAP (test code = 2-16 1300922149) BUN (test code = 5 mg/dL 7-23 L 4446569490) GLUCOSE (test code = 118 mg/dL 70-110 H 5628553900) CREATININE (test code = 0.63 mg/dL 0.6-1.25 2601519877) CALCIUM (test code = 7.6 mg/dL 8.6-10.6 L 8802415271) eGFR (test code = mL/min/1.73m2 6224453142) LU (test code = LU) Association of [...] tests). Lab Interpretation Abnormal (test code = 49836-7) [facility] [id number] 22:31:26 Test Item Value Reference Range Interpretation Comments K (test code = 4109204391) 3.3 mmol/L 3.5-5.0 L Lab Interpretation (test code = Abnormal 85734-0) [facility]22-[facility] 22:31:26 Test Item Value Reference Range Interpretation Comments K (test code = 5227471850) 3.3 mmol/L 3.5-5.0 L Lab Interpretation (test code = Abnormal 87461-4) [facility] METABOLIC PANEL (NA, K, CL, CO2, GLUCOSE, BUN, CREATININE, CA)2022-04-27 22:31:26 Test Item Value Reference Range Interpretation Comments NA (test code = 144 mmol/L 135-145 2132019407) K (test code = 3.3 mmol/L 3.5-5.0 L 0579155335) CL (test code = 112 mmol/L 98-108 H 9092336672) CO2 TOTAL (test code = 27 mmol/L 23-31 2149919851) AGAP (test code = 2-16 1014000659) BUN (test code = 5 mg/dL 7-23 L 3292453612) GLUCOSE (test code = 118 mg/dL 70-110 H 1088995462) CREATININE (test code = 0.63 mg/dL 0.60-1.25 1969625154) CALCIUM (test code = 7.6 mg/dL 8.6-10.6 L 3447372492) eGFR (test code = mL/min/1.73m2 9005643827) LU (test code = LU) Association of [...] tests). Lab Interpretation Abnormal (test code = 08337-7) [facility] Test Item Value Reference Range Interpretation Comments MAGNESIUM (test code = 7022293926) 2.1 mg/dL 1.7-2.4 Lab Interpretation (test code = Normal 83347-4) [facility]2022-07-05 21:22:49 Test Item Value Reference Range Interpretation Comments MAGNESIUM (test code = 1723550708) 2.1 mg/dL 1.7-2.4 Lab Interpretation (test code = Normal 71710-2) [facility]2022-07-05 21:22:49 Test Item Value Reference Range Interpretation Comments MAGNESIUM (test code = 7264721946) 2.1 mg/dL 1.7-2.4 Lab Interpretation (test code = Normal 91882-6) [facility] METABOLIC PANEL (NA, K, CL, CO2, GLUCOSE, BUN, CREATININE, CA)2022-04-27 15:50:29 Test Item Value Reference Range Interpretation Comments NA (test code = 143 mmol/L 135-145 7004150841) K (test code = 2.4 mmol/L 3.5-5 LL 7719509806) CL (test code = 110 mmol/L 98-108 H 1558787201) CO2 TOTAL (test code = 28 mmol/L 23-31 9166001556) AGAP (test code = 2-16 4218248039) BUN (test code = 4 mg/dL 7-23 L 9804488668) GLUCOSE (test code = 56 mg/dL 70-110 L 9396976751) CREATININE (test code = 0.65 mg/dL 0.6-1.25 9831640693) CALCIUM (test code = 7.7 mg/dL 8.6-10.6 L 1285574412) eGFR (test code = mL/min/1.73m2 2081211024) LU (test code = LU) Association of [...] tests). Lab Interpretation Abnormal (test code = 38610-2) [facility] METABOLIC PANEL (NA, K, CL, CO2, GLUCOSE, BUN, CREATININE, CA)2022-04-27 15:50:29 Test Item Value Reference Range Interpretation Comments NA (test code = 143 mmol/L 135-145 9521776418) K (test code = 2.4 mmol/L 3.5-5.0 LL 2217350521) CL (test code = 110 mmol/L 98-108 H 2842332132) CO2 TOTAL (test code = 28 mmol/L 23-31 1057966717) AGAP (test code = 2-16 2240461515) BUN (test code = 4 mg/dL 7-23 L 3354749016) GLUCOSE (test code = 56 mg/dL 70-110 L 2386555611) CREATININE (test code = 0.65 mg/dL 0.60-1.25 7259369285) CALCIUM (test code = 7.7 mg/dL 8.6-10.6 L 5016073778) eGFR (test code = mL/min/1.73m2 8503179655) LU (test code = LU) Association of [...] tests). Lab Interpretation Abnormal (test code = 94836-2) [id number] 23:23:37 Test Item Value Reference Interpretation Comments Range TROPONIN I (test 0.007 ng/mL See_Comment [Automated code = 4588806982) message] The system which generated this result [...] biotin. Lab Interpretation Normal (test code = 28101-1) [facility]. METABOLIC PANEL ([id number])2022-04-26 23:23:37 Test Item Value Reference Range Interpretation Comments NA (test code = 143 mmol/L 135-145 9252708682) K (test code = 2.3 mmol/L 3.5-5 LL 7228753400) CL (test code = 107 mmol/L 98-108 0622043791) CO2 TOTAL (test code = 27 mmol/L 23-31 8217987681) AGAP (test code = 2-16 2438206182) BUN (test code = 4 mg/dL 7-23 L 9217917853) GLUCOSE (test code = 86 mg/dL 70-110 8241131270) CREATININE (test code = 0.73 mg/dL 0.6-1.25 0871234433) TOTAL BILI (test code = 0.7 mg/dL 0.1-1.7 0355764864) CALCIUM (test code = 7.6 mg/dL 8.6-10.6 L 4195674230) T PROTEIN (test code = 6.5 g/dL 6.3-8.2 1399632866) ALBUMIN (test code = 2.7 g/dL 3.5-5 L 1358098091) ALK PHOS (test code = 96 U/L 34-122 1820825841) ALTv (test code = 13 U/L 5-50 1742-6) AST(SGOT) (test code = 22 U/L 13-40 1152052367) eGFR (test code = mL/min/1.73m2 1395735353) LU (test code = LU) Association of [...] tests). Lab Interpretation Abnormal (test code = 87295-3) [facility] [id number] 23:23:37 Test Item Value Reference Interpretation Comments Range TROPONIN I (test 0.007 ng/mL See_Comment [Automated code = 5596060295) message] The system which generated this result [...] biotin. Lab Interpretation Normal (test code = 39600-9) [facility]. METABOLIC PANEL (70775)2022-04-26 23:23:37 Test Item Value Reference Range Interpretation Comments NA (test code = 143 mmol/L 135-145 4546620593) K (test code = 2.3 mmol/L 3.5-5.0 LL 6231157731) CL (test code = 107 mmol/L 98-108 4033523159) CO2 TOTAL (test code = 27 mmol/L 23-31 9251510697) AGAP (test code = 2-16 4114071680) BUN (test code = 4 mg/dL 7-23 L 3254094221) GLUCOSE (test code = 86 mg/dL 70-110 0152375945) CREATININE (test code = 0.73 mg/dL 0.60-1.25 0968074935) TOTAL BILI (test code = 0.7 mg/dL 0.1-1.4 9329259773) CALCIUM (test code = 7.6 mg/dL 8.6-10.6 L 2227074906) T PROTEIN (test code = 6.5 g/dL 6.3-8.2 2213548319) ALBUMIN (test code = 2.7 g/dL 3.5-5.0 L 7567468366) ALK PHOS (test code = 96 U/L 34-122 1218840359) ALTv (test code = 13 U/L 5-50 2-6) AST(SGOT) (test code = 22 U/L 13-40 8051148761) eGFR (test code = mL/min/1.73m2 0230797024) LU (test code = LU) Association of [...] tests). Lab Interpretation Abnormal (test code = 74966-4) [facility] [id number] 23:23:37 Test Item Value Reference Interpretation Comments Range TROPONIN I (test 0.007 ng/mL See_Comment [Automated code = 9604801615) message] The system which generated this result [...] biotin. Lab Interpretation Normal (test code = 87825-5) [facility] (01054)2022-04-26 23:23:37 Test Item Value Reference Range Interpretation Comments NA (test code = 143 mmol/L 135-145 0689909522) K (test code = 2.3 mmol/L 3.5-5.0 LL 3862815468) CL (test code = 107 mmol/L 98-108 5170704492) CO2 TOTAL (test code = 27 mmol/L 23-31 1951528136) AGAP (test code = 2-16 2536686599) BUN (test code = 4 mg/dL 7-23 L 6592069580) GLUCOSE (test code = 86 mg/dL 70-110 0039470920) CREATININE (test code = 0.73 mg/dL 0.60-1.25 6859344456) TOTAL BILI (test code = 0.7 mg/dL 0.1-1.7 4128754176) CALCIUM (test code = 7.6 mg/dL 8.6-10.6 L 1386294823) T PROTEIN (test code = 6.5 g/dL 6.3-8.2 4036554978) ALBUMIN (test code = 2.7 g/dL 3.5-5.0 L 9189251296) ALK PHOS (test code = 96 U/L 34-122 2536019252) ALTv (test code = 13 U/L 5-50 1742-6) AST(SGOT) (test code = 22 U/L 13-40 6824266486) eGFR (test code = mL/min/1.73m2 7673501125) LU (test code = LU) Association of [...] tests). Lab Interpretation Abnormal (test code = 78417-7) [facility] [id number] 23:20:37 Test Item Value Reference Range Interpretation Comments NT-proBNP (test code 393 pg/mL See_Comment H [Autom ated = 6860271841) message] The system which generated this result transmitted reference range : <=125. The reference range was not used to interpret this result as normal/abnormal . LU (test code = LU) Biotin has been reported to cause a negative bias, interpret results relative to patient's use of biotin. Lab Interpretation Abnormal (test code = 19441-0) [facility] [id number] 23:20:37 Test Item Value Reference Range Interpretation Comments NT-proBNP (test code 393 pg/mL See_Comment H [Autom ated = 6607503408) message] The system which generated this result transmitted reference range : <=125. The reference range was not used to interpret this result as normal/abnormal . LU (test code = LU) Biotin has been reported to cause a negative bias, interpret results relative to patient's use of biotin. Lab Interpretation Abnormal (test code = 15344-0) [facility] [id number] 23:20:37 Test Item Value Reference Range Interpretation Comments NT-proBNP (test code 393 pg/mL See_Comment H [Autom ated = 7391965331) message] The system which generated this result transmitted reference range : <=125. The reference range was not used to interpret this result as normal/abnormal . LU (test code = LU) Biotin has been reported to cause a negative bias, interpret results relative to patient's use of biotin. Lab Interpretation Abnormal (test code = 10121-0) [facility] Test Item Value Reference Range Interpretation Comments LIPASE (test code = 1620949057) 78 U/L 0-220 Lab Interpretation (test code = Normal 58380-6) [facility] 23:11:39 Test Item Value Reference Range Interpretation Comments LIPASE (test code = 9175623298) 78 U/L 0-220 Lab Interpretation (test code = Normal 48939-4) [facility] 23:11:39 Test Item Value Reference Range Interpretation Comments LIPASE (test code = 0654795934) 78 U/L 0-220 Lab Interpretation (test code = Normal 02013-9) [facility] WITH [id number] 22:55:18 Test Item Value Reference Range Interpretation [...] RDW-SD (test code = 45.2 fL 38.5-51.6 45494-7) RDW-CV (test code = 14.3 % 12.1-15.4 788-0) PLT (test code = See_Comment [Automated 777-3) message] The sy stem which generated this result transmitted reference range : 150 - 328 10*3/ ?L. The reference r alisson was not used to interpret this result as normal/abnormal . MPV (test code = 10.5 fL 9.8-13 13841-2) NRBC/100 WBC (test See_Comment [Automat ed code = 9254823682) message] The system which generated this result transmitted reference range : 0.0 - 10.0 /100 WBCs. The refer ence range was not u sed to interpret th is result as normal/abnormal . NRBC x10^3 (test code See_Comment [Auto mated = 9618157945) message] The s ystem which generated this result transmitted reference range : 10*3/?L. The reference range was not used to interpret this result as normal/abnormal . GRAN MAT (NEUT) % 73.6 % (test code = 770-8) IMM GRAN % (test code 0.30 % = 9720576707) LYMPH % (test code = 20.6 % 736-9) MONO % (test code = 4.9 % 5905-5) EOS % (test code = 0.3 % 713-8) BASO % (test code = 0.3 % 706-2) GRAN MAT x10^3(ANC) 6.49 10*3/uL 1.99-6.95 (test code = 7104773659) IMM GRAN x10^3 (test 0.03 10*3/uL 0-0.06 code = 7582394638) LYMPH x10^3 (test code 1.82 10*3/uL 1.09-3.23 = 731-0) MONO x10^3 (test code 0.43 10*3/uL 0.36-1.02 = 742-7) EOS x10^3 (test code = 0.03 10*3/uL 0.06-0.53 L 711-2) BASO x10^3 (test code 0.03 10*3/uL 0.01-0.09 = 704-7) Lab Interpretation Abnormal (test code = 41255-2) [facility] WITH [id number] 22:55:18 Test Item Value Reference Range Interpretation [...] RDW-SD (test code = 45.2 fL 38.5-51.6 22957-9) RDW-CV (test code = 14.3 % 12.1-15.4 788-0) PLT (test code = See_Comment [Automated 777-3) message] The sy stem which generated this result transmitted reference range : 150 - 328 10*3/ ?L. The reference r alisson was not used to interpret this result as normal/abnormal . MPV (test code = 10.5 fL 9.8-13.0 69178-0) NRBC/100 WBC (test See_Comment [Automat ed code = 8976393927) message] The system which generated this result transmitted reference range : 0.0 - 10.0 /100 WBCs. The refer ence range was not u sed to interpret th is result as normal/abnormal . NRBC x10^3 (test code <0.01 See_Comment [Auto mated = 0985292808) message] The s ystem which generated this result transmitted reference range : 10*3/?L. The reference range was not used to interpret this result as normal/abnormal . GRAN MAT (NEUT) % 73.6 % (test code = 770-8) IMM GRAN % (test code 0.30 % = 9594155120) LYMPH % (test code = 20.6 % 736-9) MONO % (test code = 4.9 % 5905-5) EOS % (test code = 0.3 % 713-8) BASO % (test code = 0.3 % 706-2) GRAN MAT x10^3(ANC) 6.49 10*3/uL 1.99-6.95 (test code = 8989104775) IMM GRAN x10^3 (test 0.03 10*3/uL 0.00-0.06 code = 1340704630) LYMPH x10^3 (test code 1.82 10*3/uL 1.09-3.23 = 731-0) MONO x10^3 (test code 0.43 10*3/uL 0.36-1.02 = 742-7) EOS x10^3 (test code = 0.03 10*3/uL 0.06-0.53 L 711-2) BASO x10^3 (test code 0.03 10*3/uL 0.01-0.09 = 704-7) Lab Interpretation Abnormal (test code = 25108-6) [facility] WITH [id number] 22:55:18 Test Item Value Reference Range Interpretation [...] RDW-SD (test code = 45.2 fL 38.5-51.6 89529-2) RDW-CV (test code = 14.3 % 12.1-15.4 788-0) PLT (test code = See_Comment [Automated 777-3) message] The sy stem which generated this result transmitted reference range : 150 - 328 10*3/ ?L. The reference r alisson was not used to interpret this result as normal/abnormal . MPV (test code = 10.5 fL 9.8-13.0 50877-4) NRBC/100 WBC (test See_Comment [Automat ed code = 0055517276) message] The system which generated this result transmitted reference range : 0.0 - 10.0 /100 WBCs. The refer ence range was not u sed to interpret th is result as normal/abnormal . NRBC x10^3 (test code <0.01 See_Comment [Auto mated = 5788523060) message] The s ystem which generated this result transmitted reference range : 10*3/?L. The reference range was not used to interpret this result as normal/abnormal . GRAN MAT (NEUT) % 73.6 % (test code = 770-8) IMM GRAN % (test code 0.30 % = 8257069627) LYMPH % (test code = 20.6 % 736-9) MONO % (test code = 4.9 % 5905-5) EOS % (test code = 0.3 % 713-8) BASO % (test code = 0.3 % 706-2) GRAN MAT x10^3(ANC) 6.49 10*3/uL 1.99-6.95 (test code = 4276391469) IMM GRAN x10^3 (test 0.03 10*3/uL 0.00-0.06 code = 1222064489) LYMPH x10^3 (test code 1.82 10*3/uL 1.09-3.23 = 731-0) MONO x10^3 (test code 0.43 10*3/uL 0.36-1.02 = 742-7) EOS x10^3 (test code = 0.03 10*3/uL 0.06-0.53 L 711-2) BASO x10^3 (test code 0.03 10*3/uL 0.01-0.09 = 704-7) Lab Interpretation Abnormal (test code = 14550-7) [facility] [id number] 16:42:42 Test Item Value Reference Range Interpretation Comments Case Report (test code Surgical Pathology ? ? = [id number]) ?Case: [id number] ? Authorizing Provider: ?Negrito Simeon MD ? Collected: ? 03/12/2022 1050 ?Ordering Location: ? ? [facility] ? ? ?Received: ?03/12/2022 1656 ? [facility] ?Pathologist: ? Carolin Ruiz MD ? Specimens: ? A) - APPENDIX ? B) - HERNIA SAC, RIGHT INGUINAL, RIGHT INGUINAL HERNIA SAC ? Final Diagnosis (test a4jitHAwSILud4btSSRadP code = 5279510784) FuZzEwMzNcZnRuYmpcdWMx IHtccnRmMVxhbnNpXGRlZm jlzerkEKYaSOX3irUdKVId RVJ5WTM0NjVdBUIgWrc9RR JsET3icMjdePc6qCnwYOGz cjQ3dHRrYSsfx4wnRRA9s4 xqztcqOGUgBPeaSh0lgHPn vIssKaPdXCAzSGf1dD68RR KtuN3woDVkHDmhjpHwIgC3 RStuCKXjRpC5BMNcgKCvWS O1xOncJFDtnrigLlV4LUtk MWJyszjcKQs3EAcrLPOlhY I1ERDahQBsT2PrTQCdRA5h upp3ZIH1AMjyMUMyRhK5UL NnzLRoZRPbmVchOVwmq863 WHA2CiFgARWwdjTorPuvhR 1lBeQpGUicWKRdBT1jHIBX GS2CUOabRTEYJAKDRPULQX 9NWTpccGFyICAgICAtIEJF TklHTiBBUFBFTkRJWCBUSV KJXJKbB6rSAYOVDFXVIJkw V02YN3PIJNiDPpTMUlGVBM YMWROMNP3VRSPOWYdoNETU ZW9ZARDLHLKJHHLioLGyBW SculCCVqYvP7vhGzVukDEm SEVSTklBIFNBQywgRVhDSV KXY933QALskbc+IA6hkyk+ TS0aNAVTFvsNJiJAHTQOIZ hDBMeOVABTHM7RWZIRWHZX D6FEYXQVC2RcTSnYJ8NLJE jLOGtdSaZIL1EJYMNvX77W I0YHSQmNBganYLHfnrBzJQ ArRWWeY89IA1zWHZTJGHZU SVQWBEiCIr6AWMHKABVirE VkGTHvU9TsHHZyUZIqpdpt czIyIExpbmRzYXkgQmlnaG NhYQHNRqMoXU0fLH5wFOHj HFG9HpNgNPEVAZMeyxojyq FsFSSuvt73JXJ6VzEvi5U3 TQTdBvWhCMVpAK0szWtlPK EwBV3uAIXqA4nqiV0vgzq9 WuVvGESqPoL0BQBcbtA9Bq j0ILQgPStrn8rrd8JqG8Ly dFKbdAc2c2glQMDfDrY9pV SqSQmlH1crprXnxPTyCACl XXy3rEseCiWdDYVmh7rqaw BcZmNoYXJzZXQwIENhbGli fyn3bY23LHDojX5xmRBuIT lryfXyEuN1QPizQCAqAcJ3 CEBouRKmNNAkQ8rjTRUuUO lrNVQjYCrhkUGnPPW0mTmn n9L7mFByqDEiyJzyQrJqDd HoWFGBy8KuNLy4gAqpU7Nd DNChWlJ4kGJcNIGaEAgiWH PpRYMibuM5zM39QSsxmgZ5 zIWln0Goy54ax526sG0oiF QyWSF5TKHgMQAxjRBvAAYk TXX6RBGklJQlL8ihLNIrVN 9xxionTHbkQCdhHEHdhWZ5 ZBTzvDErA8JgHGFvIBcwRN Rjzau1UrPaYy4lvHSvrJxq VFgpk7zfb8idpBYcAzn2TG GlDwSjWikiWGmae2Opk7ci BVMzsb7eCCX2sROlrUeux1 M1kBOzMNYavEWmdbYmGZOj XjT3ZUqxAY9uzm94IIZrZU D0pz5ddHAqaZzeyzLqcQZz ZXqiE1SoEYKck404XVTeD4 RjUDRde0X3igAtBbWcLAJk dKK9dbN7HWSfGVk7zYOhal M4seWuoEKaP1jvhG0mRZRb NV4hyefnd2awEPalAArsEV AytRY2dwY5LIRyxKVxX2Mg yL6mXIUkZBuqYZKxtic0Zx VrOr0wbVCqhCsyOCgaXzgr YWdlXHBnbmNvbnRccGduZG VjXHBsYWluXHBsYWluXGYw LAZoLePruCnslSbhcJ9cRp HmGbLcLJimRK7iVFWcN0vj lLEcEHNyBJAmS5sxBkDqcR 9jaFxmMVxjZjJcZnMyMFxw YXIgSSBoYXZlIHBlcnNvbm IpmXbjmjJ6hSD6KDWxFErs ARWkASRurCNszz5ajHkyLE KdCC9hBFBvsrDjSMaxkTjo XLamDQY5VBCnjQOurFCamP FkZSBieSByZXNpZGVudHMs AVKxxXokt3Ltd9JotOE6fI 4en3yjp7MsCCTvaVV5ZW75 gnB1kM5eIIEuVY2kPLFvBM 3ilCOkcRRdKBRxv39urAtn cyByZXBvcnQuXHBsYWluXG YyXGZzMjhcbGFuZzEwMzNc aGljaFxmMlxkYmNoXGYyXG shS5otAoOlDzQfMSybKOG3 oDdmyrBkRHqqy1YoX3UoHg AwMFxhbnNpXGRlZmxhbmcx AIZzVEK6hmLhSRQpIEcpHF FrGYexJr0ugAIdbPbtAiVu EKXtu1kvovDZOOciTqKaB1 17EZCiOVlxo7jrq0YyEEJh kTRmo6D5RZLGjdafsHd7dM gtY54er6H4AxfnG1hmIJYg QWEeX9AgOF6hDTUjKzf9TN T9XUO2OTYrYDKcP5PbSO2t QHGctFIqUQb2m1pksIxoBM YbKNI3w4mdAMyjnwM5OB8s gk0yrVd2q0kpnpWtPKFtAC LzyEROPZPyI3KsvQpdKv4n dQr0mLxiIbwzELU4Fex1MU 2drq16mmv4zQbrRMCuyhqd JoP7OVrnZIYnamcdTLj5UV dfELVcvLG3AVYbvZAiX5Uf IHKgIT1vvvb4JPF1UNorZJ PmJsL0DYOckTXbBIHnnLek BFvgx919JRV5DoLbXH5iX3 Ftf6K8uO7dsDPzJXCjqLUk ChJfXNBuzf9lyWPvTScle2 QcS42zhFE5BJejn6xdHW0u LrA9wiWdMMafp5nuyA0zXc P1GTwuGL0ltd98YHHnEEO0 gz8fcFRbsXdzztGjvBZlUG wyD1IgNUAvh764XFXiK2Hr ZCAgm0X7dhWnUuYtOPVivZ P2uoU9EPGqITi3vYFbmxX5 fxEcjVLrS0xoeI9vKFHqLB 2molxgo6nwNSjoSFuoPMGt nZX4jmR3TWUvyQRgH7DklQ 0wUPPzTVrpAMQtfjq0ZvFv Pv9vlJTjvZrzDBgsBwvjEZ dlXHBnbmNvbnRccGduZGVj XHBsYWluXHBsYWluXGYwXG IjKsPotSUoJQvxe8SnyeSg sTmvLFXlOOk0tdFuizvxlP p0gUZzvPlzUWUdhAlugU6q NdMrYbLdKVmxHT0vWVCaJ1 rzdTOzWTRvTWKcF2ndGqBk bA5gnQuvJObaBePiBeZgHB xsdHJjaFxwYXIgSSBoYXZl HNCeaoAredFexOlwevP4mE U7DFMlNWmgXFQaRBDdgUZq ok2vwSooUHQyAS4zEDBqhw CwHTfuwUezWEawSGI3SLTv bWVudHMgbWFkZSBieSByZX DsBGYjhTUqMCZdnLvgv4Qa i2BozKK4xD2le8vno2JwOM LgdBA8OO36vgE1mN6xFJWp EH9iBMNzVW9nnKNiiNPsFW Vhy44rvCuhzsSvWOLkocCj XHBsYWluXGYxXGZzMjBcbG FuZzEwMzNcaGljaFxmMVxk GvXvWTAlLXptR5mbGaFvQ4 YyXGZzMjBccGFyXHBhclxw WAEkj2DaLkUym8dqDQspq6 xlhTc8ZDlzzBXktahnIAwo fjQ7UIFzAKudDMHaOKZzJV RcbGFuZzEwMzNcaGljaFxm URokOoYvVBGrRVujI0bfJa QbL3NbDJNgKODieVHkH6yj EYK9sS1bk0krc6DujSEbAx Xpi5iyxrByANTzpRNxxnXo mYKrORTpr0YpFVSoXNJbLB KPBy9SQNKzzXQqE0a5nHAL WI2ahYUdAFPtCHFoH4TnEw SFumJgz1Y1KSGqaALgIFBF IZMogSBbB7k6kXqeKOflEv x9GoEpoXarmH7bNrEeEhXi PBdxMB2uWQJiY4raqYIbIC InLXOhK4taPlNztR5jpNwa MVxjZjJcZnMyMFxsdHJjaF vvDXC1sO== Clinical Information RIGHT INGUINAL HERNIA (test code = [id number]) Gross Description (test g3lhlBJpTCTejELZTNMbJ1 code = [id number]) unxpTbBWQcjGVwZ9Qfhzlj OJaaOU4gNB6kwLqlwSGfaR CkXS6WOBNgNsPdGZQwxBSr kbEwDbYgZFQatUVajDJ9GH KkCR0onnwdZWymYIdlFZBq dpU5KGCrlGSqL2IlFZSuWS 3qptxaLHK7TYjmhE2ttqEA IbrjMt4taQPwoDhnVpAxZn NoYXJzZXQwXGZuaWwgQXJp GUw6aJ8WBcaeSKI2XJMJGq caTQMsOU5Za9ajFVOslMYh TFK6FRxyoMVaCTMgURVqYU a7IYBaWQcxsYDyNQ1wvZoy VsfdsYwxm4SegHGoVQjwLI IyKPNhMDwkGMTxIO7ZTrYt UBA5JSfnWEseFTg2HPg4VA 9WUyAiICAxODgyOTUyMSIg ALz8ECztJI3EMPS5RgJ8XT M0NdasGSTcPikmJCc2LSWx XFxmIEFyaWFsIFxcZnMgMT IjJInifWYkGU8mtIxgeKCp blxmczIwIFNQRUNJTUVOIE ZxhCRqGJ5FRCWbQUywOVVd jJVIMUZ5PL8mXXCJGcvoaJ JhWREwrKggYIgzbY3fDB4L XHh2lgCbGQNeLeShD8DlQ6 siPU2qWDYckcMgEZUfqILs LLSlprXse3YoPOgdxhTiWJ JlbGVkIHdpdGggdGhlIHBh hDxavlVgqdGpNH9lTPSEFF EbhA5aTRSxEwGkkJJdGNd7 YkfjQZ0oFXIdpgTme6TvOV 9mIGFuIGludGFjdCwgdmVy jOzie4HwHPDjkWLiLId3IM f3UcPsK44ieR7zhOVgI3Eu LJgyFA04CRBaWQTvwETqsm QjhJKuMZIjxjolp1x3bHOb nJHlB2pcXPCjMHZfCPIsRR 6fdFniYV1pCLRiA3B9mAOm wEwmYAQfBMRgT1Vdi81wxS HyD8txDkRSkLGfs4Jbq1Rh OPckYTSyxg1ziH3wTXYjKZ GpneFpr76uycNawIn2SWSm v886gBS8rHDiBXFwqjmns7 BrPVP1ROGnYHgdCmZGzQGa t8XgG6xmXK5phHJli3HelV DhiIvbi2NigUokbtCaOLEc NHAgylIirTA0GE5qcGphrg BmiAAee6EqLpKxHOLdSD5h NLTauDCuRS7xuuWuB7euYt Aswz3dJFJgueIylV54IVFo NSBjbSBpbiBkaWFtZXRlci G9pJH1SSXdmrRxsO3kPAHv Z27giM59egNvlL41pwSkz7 Dcm12kzHT3HT3cHeUgm25n VkEdGVvzyIR3PWRxNCeoJV 2pCOYlxsSwnfD7xQ0jmbPy qcNmJ5Bae9YruPSxQPPwgX jmjUYfKlVFWCQ6wC9ghzN6 byBpbmNsdWRlIHRoZSBlbi EqBTOeQXEhp2FtwWnjyfMo CVLtnU5eBQtxg4UsXBBuvF UpLCByZXByZXNlbnRhdGl2 MMHalm5kcn2rSMH7rK7lGX BrwdWoFpkrGVY7AERtkRew FTTwVCXbwMAddEE2GJWneK 1hYETqWMilcVbqoF9uZAWt G08kp7OXe8FnUOPwCWxix1 goeOogb7LovDEaITchJCLh kIPdOYvtrM0tWkDmh3lqeG q8VPypkpI2VQQveo1HZwhi JjiomAigt6SzdKQgAXydDM BoCRNsABfcQMOyCD6QVdGi LEJ1TRaiHMejOMq9EBu9IK 3LAsIwRERoJDimMTz2ZOLa ISt5OAilBQ6OLIF1RuV7UN U2LNBhJHEkQvlwVTe9BMYp XFxmIEFyaWFsIFxcZnMgMT DgNMnllWFjAS3eiEkbhyCk IFNQRUNJTUVOIEJccGFyIA 1QDAJcTMgiUQCvoXOMNMW6 YN9pJEWVZajjuMPzATFqpK ndIGehrE4pHY8RRZo0emNg URScWpSwJ3JwZ7zkHC4ePp BpcyByZWNlaXZlZCBpbiBm u9VqUMpkvhNcRRXfrKXkWO dpdGggdGhlIHBhdGllbnQn fsEaMW4fQHQOWWCsqG7mGM FeDzMqlNbaaIEsgil0nU3c xKVkBQJalDPuz3FdRgvkXK 2nTDWwgyNvz4TjHJ0uWWFg hVZvDVDlzpgps1EhG6EbNQ Wws42cjET2eGPyyHVdWvQd Y02xegZpFGGyTTB8JIZiYK D2GTByFrSjqKaxa1ntY7ja zTWmg8VhfAVvlSsnk1CkeF lvbmVkIHRvIHJldmVhbCB0 SV0cjYzuxfOiFU6dqgUcu4 VnBGR7gCYcyCDyIDVmen2t JDJlrYExo6IdpAS0cFBrUE TwM3Hha99qMJHeBFHbnOQd tIN6EDFykP0zKqXrDBOwfo QQHpjcKWSuEJnUEMT1TWYa amVzdGthLCBQQSAoQVNDUC kNClxwbGFpblxlcGljTmVz wCSyNxDdkZpilT60BXMxaC CxXUW4OT4pJGKfwcqaCIJy YAFnBUS8EGdigU25mKZwQR AiAGKdpAUthX8VRPYdMUE4 LLevsC78tHGkZT9LLKQiLI U3BBQwnNUvCJK1QD9xwZ6T fQ== Disclaimer (test code = [id number] [id number]) FuZzEwMzNcZnRuYmpcdWMx EOtornAoUKkhl4CjO3YzIm AwMFxhbnNpXGRlZmxhbmcx GVEgCIW2apAeSRMaWZcpJD DpUYqjBx9rfMGnzWhfHwIn WQZvu2mbggCIUEduRqIpE2 93AUSmDTxkb5rxm2ZtPQFe hDTci2Q1LKQUyamjcIc7sF izX43mn4P0CzgkM2avGPMk HSXrO0JzIL8oCHVcUgj3CM Q3JDP6DHLhFQDcO8KhPV6k LTVlrMRxSWj9a9tzmLlzKZ GiEHH7f4cvKGvtsaRgYT3l bq2xfOv5j9lmagSpFJWcRU VujDIPPRNsI9YvfBzfKi2h bPn1sErwSdbxHSF1Bun4CA 3ndj14axd5yCoxPFSdyzme ObS0LVzpUAJnzvygPEq4JR owDGRchRM8PIWzyXEzO3Pg FVPjDO8vptv1OFI1VXfdUV RkAmO3PNLzwDIyWJLzkKtk YSpjd570XLK8UyLlNP2aP7 Pbh2L9jG2jwZBsOCNzjHPx OyGmWIHpkz8yxWKlSLpxw1 FgWDG3htL5aAGaaXQtNRGa PF50Zbwbh5FbNokpz1StN6 6saNJ3TXejx3nyTX7xWgY6 tkAaEWidf3vheX9zUtF5OA grBJ7fOH5aNNTecV2pnqjf XHBnYnJkcmhlYWRccGdicm TbEj2yrNrkLQX6QPabU0zr kD5yXiJ4WNjyU8cgjW6qMC e3DUqnzSS2RRVodD8gCD9g ndtef6flGDotRTimWFFxju Y4ytQ4IIQafNObM7FjdP7y DUEjUZ3bhffbx2uaIYF2PS nnCBQwDQB0GgLqAYLdo5Bu ohf3ZyBai5CwsYHaWPtrQ8 7kk736GGMqptWtF5mecQHh bbpmgNLdtivcXKhtfbH8BD HkkeRhp4XtJBLoZPY3CApd ABoacHBnJLLpdHqru5kvK2 RscGFyXHBsYWluXGYxXGZz MjBcbGFuZzEwMzNcaGljaF kxIMnhNcJhBLIrXTnqB5fc PnPvT8FaZIChPyYmqPOpI2 ggVGhpcyByZXBvcnQgbWF5 EBaiC0r8QIGocbAqgUr0gm FcJyWtZYYvBSP6RSdrpCJg CEOfd0TwnkvjzDIpPz8xiW IfDYOmvZ6xOLXkTXKjGZyi IT4myMq7OAHRbRTtsVNrKk MUTQFlIO23lbIwELLGueoy q9F3KSzcQFTxp5WegRFdX6 zpf8NxECHdq78vSH6ql4W2 f5xdCXB9GN2aq0TiKPMqbI LxfZSlMYZts9Akshiyh9Lk GEXppbKme0QiGFMdezFjtH DrESMuswGbgn2rgjFyJZVg DABgC4NlhbhogXjwpgUiZN Pawx4lqwBxTBD1UNRYPCUk ILVvs2YrnV4gfLGEVJG7xU Eqro7uujSTuHZaTTOxmw88 HOMpMC9lL1hhNYJxTNUbfi DamWZlf9IeZPKoxJD6zFLf HA5ALyOGc45tWIOkSJSHqz VnAOLpzBucvQG2apQ6pR8l IChGREEpLlx+IFRoZSBGRE QlAS9pcsSxx8KeyyVbnJbb SCGvzKGjg2OluKPdp6VepO kbj4JhqZLwaKMoXL3wVUWc clxwYXIgVVRNQiBMYWJvcm S0c7GwOJTxDOOePBM9sNdw qku8FMQdgE8pUPTfP5ewmr coLHutFCDnc4LyuY5jnULT lCCex0QzgLYvnSVWmVDaHU 9broOsUMrJPViLHPU5jdQe TJMsm4MfTSskX9tvW70kgM fwjJt8mNH5WAZ8kW0eZkb+ IFxwYXJccGFyIEFwcHJvcH DhIFEazOofjbHmV9GmneIj wD1wpQWrkcKbGS6pMD3vJ2 Z9yUGsDSUdueSix7lrFCbv dmUgYmVlbiByZXZpZXdlZC Peo2WkIEkhAKA2HIhejdWw bmNsdWRpbmcgSCZFLCBTcG MsiDVnKEW1OBatqnTagrHl FC3hmF0jvKdemG2fxVGnzA T4nentPQEnKZMpcQiqRAZu GQ1fpMGoFFXjgpTYwKdxhB QbgG9iV3AwQJDnZZJacy5d YKCtpI6wKLuku2YnmezfQW AxYCQhVBTxtbTcod4pVSUm hHOLID2OCUuvqXBuf1Xlhb HkX5lTBWX4BBReYhNiPsyx RWAzjFShsDWqGZPvlj83QP SfaL7dcQdePFLoxC7bpO1r nEyefQ0lEgXuFoYuPTekWW 5mOPBlJ2ymhVBkADVuVNXi R5scZvEpxS3ldUjqVKaaJn IbWeSoIJeoTCX3lT== Embedded Images (test code = 2062382320) [facility] BranchType and Screen - This is a pre-surgical type and screen. ONCE [id number] 17:52:02 Test Item Value Reference Range Interpretation Comments ABO & RH (test AB POSITIVE Performed at [facility] code = 20) [facility] Blood Bank3 [address] [facility] s [address]Norv Free: [phone] A No. [id number] IAT (test code = Negative Performed a t [facility] 1185) Laboratory Serv [facility] Blood [facility] [place], [place] [address]ruth s [address]Odyv Free: [phone] A No. [id number] [facility] 23:13:17 Test Item Value Reference Range Interpretation Comments PALB (test code = 70013-7) 20.2 mg/dL 18.0-45.0 Lab Interpretation (test code = Normal 67267-3) [facility] (ALB,T.PRO,BILI T,BU/BC,ALT,AST,ALK PHOS)2022-02-04 23:05:58 Test Item Value Reference Range Interpretation Comments TOTAL BILI (test code = 9510429754) 0.4 mg/dL 0.1-1.1 BILI UNCON (test code = 2449010383) 0.2 mg/dL 0.1-1.1 BILI CONJ (test code = 2203495489) 0.0 mg/dL 0.0-0.3 T PROTEIN (test code = 6893372036) 7.7 g/dL 6.3-8.2 ALBUMIN (test code = 1452962249) 3.4 g/dL 3.5-5.0 L ALK PHOS (test code = 1015231357) 65 U/L 34-122 ALTv (test code = 1742-6) 11 U/L 5-50 AST(SGOT) (test code = 8356215786) 23 U/L 13-40 Lab Interpretation (test code = Abnormal 99769-3) [facility] [id number] 03:38:00 Test Item Value Reference Range Interpretation Comments AB HEPATITIS A IGM NEGATIVE (test code = HAVMAB) AG HEPATITIS B NEGATIVE SCREEN NEGATIVE SURFACE (test code = HBSAG) AB HEPATITIS B CORE NEGATIVE IGM (test code = HBCMAB) AB HEPATITIS C (test <0.1 RATIO <0.8 S/C RAT ION 0.0 - code = HCVAB) 0.9 NEGATIVE <0.8INDETERMINA TE 0.8 - 0.9POSITI VE >0.9 [id number] 16:06:00 Test Item Value Reference Range Interpretation Comments SURG (test code = SURG) RUN DATE: 10/07/20 [facility] - LAB PAGE 1 RUN TIME: 1607 Specimen Inquiry RUN USER: INTERFACE PATIENT: FIONA SANCHES JR LOC: WINTER U #: [id number] AGE/SX: 35/M ROOM: WINTER RE10/06/20REG DR: Sreekanth Garcia MD : 84 BED: 3 DIS: STATUS: ADM Arcadio TLOC: SPEC #: [id number] RECD: 10/06/20 STATUS: ELZA REMaya #: [id number] MIRIAM: 10/06/[address]: Sreekanth Garcia MD ENTERED: 10/06/20 SP TYPE: SURG OTHR DR: DOES_NOT KNOW No Primary or Family Physician Juan Mcbride MD, Jignesh P MDORDERED: SURG PATH LVL 4 COPIES TO: DOES_NOT KNOW No Primary [place] [address] [address] [email or web address] [address] [place] [address] Arnulfo Cormier MD [address] [address] HISTOLOGY: TISSUE ID BLK PCS KANWAL LEV PROCEDURE DISPOSITION ____ ___ ___ ___ ESOPHAGUS, NOS A 1 2 PROCEDURES: SURG PATH LVL 4 (10/06/20-1245) TISSUES: A. ESOPHAGUS, NOS - ESOPHAGUS BIOPSY CLINICAL HISTORY ESOPHAGEAL FOOD BOLUS, STRICTURE V DYSMOTILITY CONTINUED ON NEXT PAGE RUN DATE: 10/07/20 [facility] PAGE 2 RUN TIME: 1607 Specimen Inquiry RUN USER: INTERFACE SPEC #: [facility]:[id number] PATIENT: FIONA SANCHES JR #[id number] (Continued) CPT CODES CPT CODE(S): 44630 , , , , , , FINAL DIAGNOSIS Esophagus, biopsy: ACUTE ESOPHAGITIS WITH CANDIDIASIS NEGATIVE FOR INTESTINAL METAPLASIA, DYSPLASIA, OR MALIGNANCY GROSS DESCRIPTION Esophagus biopsy. Received in formalin are multiple minute fragments of suarez soft tissue, 0.1 - 0.3 cm. The specimen is filtered in a teabag and entirely submitted as A. ba/nr Grossing performed at [facility] Pathology, [address] [place] [address], [address], [place] [address]. Community Fundraiser: Abner Steward M.D. MICROSCOPIC DESCRIPTION Esophagus biopsy. Sections demonstrate squamous mucosa with a reactive appearance and increased acute inflammation. Detached fragments of squamous mucosa are identified with associated fungal organisms. No dysplasia or malignancy is seen. Alcian blue-PAS confirm the absence of intestinal metaplasia. Signed SIGNATURE ON FILE Deric Fink Kenny 10/07/20 1606 END OF REPORT Novel Coronavirus 15:50:00 Test Item Value Reference Range Interpretation Comments Novel Coronavirus Negative Negative Positive r esults are 2019 Inhouse (test indicativ e of the presence code = ZRIWK51QZ) ofSARS-CoV -2 RNA, clinical correlation wit h [...] for the identification of SARS-CoV-2 RNA usingthe UAV Navigation M2000 Sy stem under the FDA Emergen cy UseAuthorizatio n. The testing is perf ormed by brandi craft in the procedures for the Sanders M2000 molecular diagnostic SARS-CoV-2 assa y in vitro. Novel Coronavirus [id number] 15:50:00 Test Item Value Reference Range Interpretation Comments Novel Coronavirus Negative Negative Positive r esults are 2019 Inhouse (test indicativ e of the presence code = RPVOQ93AV) ofSARS-CoV -2 RNA, clinical correlation wit h [...] for the identification of SARS-CoV-2 RNA usingthe UAV Navigation M2000 Sy stem under the FDA Emergen cy UseAuthorizatio n. The testing is perf ormed by brandi craft in the procedures for the Sanders M2000 molecular diagnostic SARS-CoV-2 assa y in vitro. CBC W/AUTO [id number] 13:10:00 Test Item Value Reference Range Interpretation [...] NT WITH AUTO DIFFERENTI AL. CBC W/AUTO [id number] 13:10:00 Test Item Value Reference Range Interpretation [...] CONSISTA NT WITH AUTO DIFFERENTI AL. RBC [id number] 13:10:00 Test Item Value Reference Range Interpretation Comments PLATELET ESTIMATE DECREASED THOUSAND ADEQUATE PLAT ELET COUNT (test code = REVIEWED AND PLTEST) VERIFIED. PLATELET MORPHOLOGY NORMAL (test code = PLTMORPH) CBC W/AUTO [id number] 13:10:00 Test Item Value Reference Range Interpretation [...] NT WITH AUTO DIFFERENTI AL. COMPREHENSIVE METABOLIC [id number] 11:48:00 Test Item Value Reference Range Interpretation [...] TOTAL (test code = ALKP) CBC W/AUTO [id number] 11:33:00 Test Item Value Reference Range Interpretation [...] REQUIRED (test code = DIFF/SCN CRITERIA MDIFF) [id number] 04:59:00 Test Item Value Reference Range Interpretation Comments AMMONIA (test code = AMM) 56 mcMOL/L 11-32 H LACTIC [id number] 04:59:00 Test Item Value Reference Range Interpretation Comments LACTIC ACID (test code = LACT) 0.7 mmol/L 0.4-2.0 N GLUCOSE BEDSIDE [id number] 20:35:00 Test Item Value Reference Range Interpretation Comments GLUCOSE BEDSIDE TESTING (test code 109 mg/dL 70-110 N = GLUBED) GLUCOSE BEDSIDE [id number] 17:10:00 Test Item Value Reference Range Interpretation Comments GLUCOSE BEDSIDE TESTING (test code 105 mg/dL 70-110 N = GLUBED) - US ABDOMEN [id number] 16:39:00 [facility] 1985 Sex: M Name:FIONA SANCHES JR [place] : 1985 Age/S: 35 / M [address] [address] Unit #: [id number] Loc: [place] [address] Phys: Matilda Kirk PA-C Acct: [id number] Dis Date: Status: ADM IN PHONE #: [phone] Exam Date: 10/06/2020 6607 FAX #: Reason: elevated lfts, evaluate for cirrhosis EXAMS: CPT: [id number] US ABDOMEN LTD 52354 RIGHT UPPER QUADRANT ULTRASOUND. CLINICAL HISTORY: Elevated [...] Report (CONTINUED) Name: FIONA SANCHES JR [place] : 1985 Age/S: 35 / M [address] Unit #: [id number] Loc: [place] [address] Phys: Matilda Kirk PA-C Acct: [id number] Dis Date: Status: ADM IN PHONE #: [phone] Exam Date: 10/06/2020 1515 FAX #: Reason: elevated lfts, evaluate for cirrhosis EXAMS: CPT: [id number] US ABDOMEN LTD [address]74 (Continued) CC: Sreekanth Garcia MD; Matilda Kirk Technologist: Rae Eaton Trnscb Date/Time: 10/06/2020 (1639) [id number] PAGE 2 Signed Report Name: FIONA SANCHES [place]land : 1985 Age/S: 35 / M [address] [address] Unit #: [id number] Loc: [place] [address] Phys: Matilda Kirk PA-C Acct: [id number] Dis Date:Status: ADM IN PHONE #: [phone] Exam Date: 10/06/2020 1515 FAX #: Reason: elevated lfts, evaluate for cirrhosis EXAMS: CPT: [id number] US ABDOMEN LTD [address] (Continued) Orig Print D/T: S: 10/06/2020 (6670) Probe: PAGE 3 Signed ReportUA RFLX MICR CULT IF [id number] 15:23:00 Test Item Value Reference Range Interpretation [...] 92 mg/dL 70-110 N GLUBED) GLUCOSE BEDSIDE [id number] 13:37:00 Test Item Value Reference Range Interpretation Comments GLUCOSE BEDSIDE TESTING (test code = 58 mg/dL 70-110 L GLUBED) CREATINE KINASE (CK)2020-10-06 11:26:00 Test Item Value Reference Range Interpretation Comments CREATINE KINASE (CK) (test code = 287 Unit/L 26-192 H CK) [id number] 11:26:00 Test Item Value Reference Range Interpretation Comments AMYLASE (test code = JOSE CARLOS) 120 Unit/L 25-115 H [id number] 11:26:00 Test Item Value Reference Range Interpretation Comments LIPASE (test code = LIP) 112 Unit/L 114-286 L CBC W/AUTO [id number] 09:58:00 Test Item Value Reference Range Interpretation [...] DIFF/SCN CRITERIA (test code = MDIFF) WBC [id number] 09:58:00 Test Item Value Reference Range Interpretation [...] NORMAL (test code = PLTMORPH) CBC W/AUTO [id number] 09:55:00 Test Item Value Reference Range Interpretation [...] DIFF/SCN CRITERIA (test code = MDIFF) WBC [id number] 09:55:00 Test Item Value Reference Range Interpretation Comments SEGMENTED NEUTROPHILS (test code = SEG) % 40-75 LYMPHOCYTE (test code = LYMPH) % 12.6-43.5 CBC W/AUTO [id number] 09:55:00 Test Item Value Reference Range Interpretation [...] DIFF/SCN CRITERIA (test code = MDIFF) WBC [id number] 09:55:00 Test Item Value Reference Range Interpretation Comments SEGMENTED NEUTROPHILS (test code = SEG) % 40-75 LYMPHOCYTE (test code = LYMPH) % 12.6-43.5 COMPREHENSIVE METABOLIC [id number] 09:14:00 Test Item Value Reference Range Interpretation [...] TOTAL (test code = ALKP) CBC W/AUTO [id number] 09:02:00 Test Item Value Reference Range Interpretation [...] CRITERIA (test code = MDIFF) GLUCOSE BEDSIDE [id number] 06:41:00 Test Item Value Reference Range Interpretation Comments GLUCOSE BEDSIDE TESTING (test code = 65 mg/dL 70-110 L GLUBED) COVID 19 INHOUSE [id number] 05:40:00 Test Item Value Reference Range Interpretation Comments COVID 19 INHOUSE AG NEGATIVE Negative Per manu facturer, (test code = negative result s should [id number]) be treated aspr esumptive and, if inconsi [...] co nsistent with COVID-19. - CT CHEST [id number] 03:30:00 [facility] 1985 Sex: M Name:FIONA SANCHES JR [facility] : 1985 Age/S: 35 / M [address] Unit #: [id number] Loc: [place] [address] Phys: Scott Person MD Acct: [id number] Dis Date: Status: REG ER PHONE #:[phone] Exam Date: 10/06/2020 0245 FAX #: Reason: possible esophageal pneumatosis EXAMS: CPT: [id number] CT CHEST W/CONTRAST 76113 DICTATION LOCATION: H48 HISTORY: Male, 35 years [...] JR : 1985 Age/S: 35 / M [address] [facility]: [id number] Loc: [place] [address] Phys: Scott Person MD Acct: [id number] Dis Date: Status: REG ER PHONE #: [phone] Exam Date: 10/06/2020 0245 FAX #: Reason: possible esophageal pneumatosis EXAMS: CPT: [id number] CT CHEST W/CONTRAST 16476 (Continued) (i.e. scleroderma or dermatomyositis). Infiltrative neoplasm [...] (329) t.SANDYR.CLW Orig Print D/T: S: 10/06/2020 (033) PAGE 2 Signed Report- CT NECK [id number] 03:11:00[facility] 1985 Sex: M Name:FIONA SANCHES JR [facility] : 1985 Age/S: 35 / M [address] Unit #: [id number] Loc: [place] [address] Phys: Scott Person MD Acct: [id number] Dis Date: Status: REG ER PHONE #: [phone] Exam Date: 10/06/2020249 FAX #: Reason: possible esophageal pneumatosis EXAMS: CPT: [id number] CT NECK W/CONTRAST 34338 EXAM: - CT NECK W/CONTRAST LOCATION: H57 [...] limits evaluation. The pharynx, transglottic airway, visualized trachea,visualized esophagus are unremarkable. The visualized orbits and intracranial compartment are normal. The paranasal sinuses are clear. Salivary and thyroid glands are normal in appearance. No cervical lymphadenopathy. The bones and soft tissues are unremarkable. Please refer to dedicated concurrent CTchest for additional thoracic findings. IMPRESSION: Unremarkable CT neck. at 0311 Reported and signed by: Gianni Otero M.D. PAGE 1 Signed Report (CONTINUED) Name: FIONA SANCHES JR [place] : 1985 Age/S: 35 / M [address] [address] Unit #: [id number] Loc: [place] [address] Phys: Scott Person MD Acct: [id number] Dis Date: Status: REG ER PHONE #: [phone] Exam Date: 10/06/2020249 FAX #: Reason: possible esophageal pneumatosis EXAMS: CPT: [id number] CT NECK W/CONTRAST 12380 (Continued) CC:Technologist:Valentine Momin, RT(R)(CT); CTDI: DLP: Trnscb Date/Time: 10/06/2020 (310) MoeMKW1 Orig Print D/T: S: 10/06/2020 (313) PAGE 2 Signed ReportBASIC METABOLIC PANEL 2020-10-06 02:14:00 Test Item Value Reference Range Interpretation [...]
[2022-07-06] MEDS ORDERED: LIDOCAINE VISCOUS 2% SOLN 15 ML UDC ONE (09:05)
--- NOTE | 2022-07-06 09:40 | ER ---
Nurse's Notes [facility] Name: Tahir Ag Jr Age: 37 yrs Sex: Male : 1985 Arrival Date: 07/06/2022 Time: 07:58 Bed External Waiting Private MD: Diagnosis: Skin excoriation;Emaciated state;Drug abuse;Non-compliance Presentation: 07/06 08:12 Chief complaint: Patient states: pain around feeding tube, also feeding tube is mb8 leaking. Tube has not been changed in about 1 year. Coronavirus screen: Vaccine status: Patient reports being unvaccinated. Ebola Screen: No symptoms or risks identified at this time. Initial Sepsis Screen: Does the patient meet any 2 criteria? Temp <36.0*C (96.8*F)) or > 38.3*C (100.9*F). No. Patient's initial sepsis screen is negative. Does the patient have a suspected source of infection? Yes: Other: redness around feeding tube. Risk Assessment: Do you want to hurt yourself or someone else? Patient reports no desire to harm self or others. Onset of symptoms is unknown. 08:12 Method Of Arrival: EMS mb8 08:12 Acuity: MARTINA 3 mb8 Triage Assessment: 08:14 General: Appears uncomfortable, Behavior is calm, cooperative, appropriate for age. mb8 Pain: Complains of pain in abdomen Pain does not radiate. Pain currently is 10 out of 10 on a pain scale. Historical: - PMHx: 08:13 achalasia; Bipolar disorder; Diabetes - NIDDM; Hernia; Hypertension; Schizophrenia; mb8 Seizure; - PSHx: 08:13 gastrostomy tube; mb8 - Immunization history:: Adult Immunizations unknown. - Social history:: Smoking status: Patient reports the use of cigarette tobacco products, denies chronic smoking, but will smoke occasionally. Screenin:15 Abuse screen: Denies threats or abuse. Denies injuries from another. Nutritional mb8 screening: No deficits noted. Tuberculosis screening: No symptoms or risk factors identified. 08:16 Fall Risk Fall in past 12 months (25 points). Secondary diagnosis (15 points) No IV (0 mb8 pts). Ambulatory Aid- None/Bed Rest/Nurse Assist (0 pts). Gait- Normal/Bed Rest/Wheelchair (0 pts) Mental Status- Oriented to own ability (0 pts). Total Durham Fall Scale indicates No Risk (0-24 pts). Assessment: 08:14 GI: PEG tube Site reddened. Site with drainage. Reports lower abdominal pain, upper mb8 abdominal pain. Derm: redness and drainage around feeding tube Reports pain that is 10 out of 10 on a pain scale. 09:17 Reassessment: Patient and/or family updated on plan of care and expected duration. Pain jd3 level reassessed. Patient is alert, oriented x 3, equal unlabored respirations, skin warm/dry/pink. pt reporting wanting to leave. provider notified. awaiting wound care to see pt. pt reporting wanting to leave anyway. no new orders at this time. Vital Signs: 08:12 BP 108 / 72; Pulse 68; Resp 20; Temp 95.9(A); Pulse Ox 100% ; Pain 10/10; mb8 09:29 BP 103 / 75; Pulse 56; Resp 17; Pulse Ox 100% ; em6 ED Course: 07:58 Patient arrived in ED. bd 08:08 Kilo Reed, MARTINA is Primary Nurse. jd3 08:09 Miladis Mukherjee FNP-C is PHCP. snw 08:09 Amanuel Ferrer MD is Attending Physician. snw 08:13 Triage completed. mb8 08:14 Arm band placed on. mb8 08:16 Patient has correct armband on for positive identification. Placed in gown. Bed in low mb8 position. Call light in reach. Side rails up X2. Client placed on continuous cardiac and pulse oximetry monitoring. NIBP monitoring applied. nuclear monitoring technician on. 08:16 No provider procedures requiring assistance completed. mb8 10:36 Patient did not have IV access during this emergency room visit. em6 Administered Medications: 09:10 Drug: Lidocaine Solution (4%) 1 application Route: Topical; Site: wound; em6 09:28 Follow up: Response: No adverse reaction em6 Medication: 08:15 VIS not applicable for this client. mb8 Outcome: 09:40 Discharge ordered by . snw 09:40 Discharged to home ambulatory. em6 09:40 Condition: stable 09:40 Discharge instructions given to patient, Instructed on discharge instructions, follow up and referral plans. Demonstrated understanding of instructions, follow-up care. 09:40 Patient left the ED. em6 Signatures: Stephanie Freeman Shelly, TECHNOLOGY SPECIALIST-C TECHNOLOGY SPECIALIST-Csnw Kilo Reed RN RN jd3 Sol Bell RN RN em6 Gianni Flynn RN RN mb8 Corrections: (The following items were deleted from the chart) 08:16 08:15 Fall Risk None identified. mb8 mb8 09:18 09:17 Reassessment: pt reporting wanting to leave. provider notified. awaiting wound jd3 care to see pt. pt reporting wanting to leave anyway. no new orders at this time jd3 10:37 10:36 Patient left the ED. em6 em6
--- NOTE | 2022-07-06 09:40 | EDPHYS ---
Physician Documentation [facility] Name: Tahir Ag Jr Age: 37 yrs Sex: Male : 1985 Arrival Date: 07/06/2022 Time: 07:58 Bed External Waiting Private MD: ED Physician Amanuel Ferrer HPI: 07/06 09:37 This 37 yrs old Black Male presents to ER via EMS with complaints of leaking g-tube. snw 09:37 The patient represents for recheck after previously being evaluated for g-tube. snw Previous care: pt non-compliant with all care. Present symptoms: skin breakdown and excoriation. The patient has experienced similar episodes in the past, chronically. pt is well known to facility. Historical: - PMHx: 08:13 achalasia; Bipolar disorder; Diabetes - NIDDM; Hernia; Hypertension; Schizophrenia; mb8 Seizure; - PSHx: 08:13 gastrostomy tube; mb8 - Immunization history:: Adult Immunizations unknown. - Social history:: Smoking status: Patient reports the use of cigarette tobacco products, denies chronic smoking, but will smoke occasionally. ROS: 09:37 Constitutional: Negative for fever, chills, and weight loss, Eyes: Negative for injury, snw pain, redness, and discharge, ENT: Negative for injury, pain, and discharge, Neck: Negative for injury, pain, and swelling, Cardiovascular: Negative for chest pain, palpitations, and edema, Respiratory: Negative for shortness of breath, cough, wheezing, and pleuritic chest pain, Back: Negative for injury and pain, : Negative for injury, bleeding, discharge, and swelling, MS/Extremity: Negative for injury and deformity, Skin: Negative for injury, rash, and discoloration, Neuro: Negative for headache, weakness, numbness, tingling, and seizure, Psych: Negative for depression, anxiety, suicide ideation, homicidal ideation, and hallucinations. 09:37 Abdomen/GI: Positive for Gtube leaking. Exam: 09:33 Head/Face: Normocephalic, atraumatic. Eyes: Pupils equal round and reactive to light, snw extra-ocular motions intact. Lids and lashes normal. Conjunctiva and sclera are non-icteric and not injected. Cornea within normal limits. Periorbital areas with no swelling, redness, or edema. 09:33 Neck: Trachea midline, no thyromegaly or masses palpated, and no cervical lymphadenopathy. Supple, full range of motion without nuchal rigidity, or vertebral point tenderness. No Meningismus. Chest/axilla: Normal chest wall appearance and motion. Nontender with no deformity. No lesions are appreciated. 09:33 Respiratory: Lungs have equal breath sounds bilaterally, clear to auscultation and percussion. No rales, rhonchi or wheezes noted. No increased work of breathing, no retractions or nasal flaring. Abdomen/GI: Soft, non-tender, with normal bowel sounds. No distension or tympany. No guarding or rebound. No evidence of tenderness throughout. Back: No spinal tenderness. No costovertebral tenderness. Full range of motion. 09:33 Constitutional: The patient appears alert, awake, emaciated. 09:33 ENT: Dental exam: edentulous. 09:33 Cardiovascular: Rate: bradycardic. 09:33 Skin: Appearance: normal except for affected area, rash a severe rash is noted, rash can be described as excoriated, on the around g-tube, excoriated, + erythema to inferior area of g-tube, consult placed to wound care. Vital Signs: 08:12 BP 108 / 72; Pulse 68; Resp 20; Temp 95.9(A); Pulse Ox 100% ; Pain 10/10; mb8 09:29 BP 103 / 75; Pulse 56; Resp 17; Pulse Ox 100% ; em6 MDM: 08:09 Patient medically screened. snw 09:36 Data reviewed: vital signs, nurses notes. Data interpreted: Pulse oximetry: on room air snw is 100 %. Interpretation: normal. Counseling: I had a detailed discussion with the patient and/or guardian regarding: the historical points, exam findings, and any diagnostic results supporting the discharge/admit diagnosis, the need for outpatient follow up. Response to treatment: pt declines staying for wound care consultation. Special discussion: I discussed in detail with the patient the higher chance of wound infection based on his presenting history. Based on the history and exam findings, there is no indication for further emergent testing or inpatient evaluation. I discussed with the patient/guardian the need to see the electronics manufacturer for further evaluation of the symptoms. I discussed with the patient/guardian the need to see the primary care provider for further evaluation of the symptoms. 07/06 08:24 Order name: consult Order-Wound care snw Administered Medications: 09:10 Drug: Lidocaine Solution (4%) 1 application Route: Topical; Site: wound; em6 09:28 Follow up: Response: No adverse reaction em6 Disposition: 19:13 Co-signature as Attending Physician, Amanuel Ferrer MD I agree with the assessment and kdr plan of care. Disposition Summary: 07/06/22 09:40 Discharge Ordered Location: Home snw Condition: Stable snw Diagnosis - Skin excoriation snw - Emaciated state snw - Drug abuse snw - Non-compliance snw Followup: snw - With: Private Physician - When: Today - Reason: Recheck today's complaints, Continuance of care, Re-evaluation by your physician Forms: - Medication Reconciliation Form snw - Thank You Letter snw - Antibiotic Education snw - Prescription Opioid Use snw Signatures: Amanuel Ferrer MD MD kdr Waters, Shelly, FNP-C INTEGRATIVE MEDICINE PHYSICIAN-Csnw Sol Bell, RN RN em6 Gianni Flynn RN RN mb8
[2022-07-06 11:26] VITALS: TEMP 95.9; O2SAT 100
[2022-07-06 11:29] VITALS: BP 103/75
== END 2022-07-06 10:36 | disposition home or self-care (01) ==
LOC: ER 07:56
DX: F42.4 Excoriation (skin-picking) disorder (principal); R64 Cachexia; F19.10 Other psychoactive substance abuse, uncomplicated; K94.29 Other complications of gastrostomy; F20.9 Schizophrenia, unspecified; F17.210 Nicotine dependence, cigarettes, uncomplicated
CPT/HCPCS: 99284

== ENCOUNTER 2022-07-07 11:35 | Emergency (ER) | payer OTHER ==
--- OUTSIDE RECORDS SUMMARY | 2022-07-07 11:45 | XMS REPORT | Continuity of Care Document ---
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 12010.1.1 ity of 3.104.2.7 [place] .3.534154 Medica l .8 [place] 2022-03-19 2022-03-19 Telephone Kamlesh, Gal 1.2.840.7 [id number] Univers 00:00:00 00:00:00 62757.1.1 ity of 3.104.2.7 [place] .3.669298 Medica l .8 [place] 2022-03-12 2022-03-12 [facility], 1.2.840.2 [id number] Univers 08:13:00 16:20:00 Encounter Negrito 45357.1.1 it y of [place] 3.104.2.7 [place] .3.956905 Medica l .8 [place] 2022-03-12 2022-03-12 Anesthesia Carley Fregoso 1.2.840.1 [id number] Univers 09:44:00 12:14:00 Event Richard Granados 31964.1.1 ity of 3.104.2.7 [place] .3.852161 Medica l .8 [place] 2022-03-12 2022-03-12 Surgery [place], 1.2.840.2 [id number] Univers 09:54:00 12:12:00 Negrito 61263.1.1 ity of [place] 3.104.2.7 [place] .3.670946 Medica l .8 [place] 2022-03-09 2022-03-09 Laboratory Negrito Simeon 1.2.840.8 [id number] Univers 10:15:00 10:30:00 Only Only, Adc Jeffry 04171.1.1 ity of 3.104.2.7 [place] .3.226072 Medica l .8 [place] 2022-03-09 2022-03-09 Travel 1.2.840.1 1.2.609.191 [id number] Univers 00:00:00 00:00:00 13348.1.1 350.1.13.10 ity of 3.104.2.7 4[place].3.698 [place] .3.657844 084.8 Medica l .8 [place] 2022-03-05 2022-03-05 Office Walker, 1.2.840.5 [id number] Univers 10:15:00 12:01:28 Visit Negrito 64334.1.1 ity of [place] 3.104.2.7 [place] .3.921131 Medica l .8 Branch 2022-02-25 2022-02-25 Hospital [facility], Gal 1.2.840.3 [id number] Univers 08:04:00 13:21:00 Encounter 16079.1.1 it y of 3.104.2.7 [place] .3.111494 Medica l .8 Branch 2022-02-25 2022-02-25 Surgery [facility], Gal 1.2.840.8 [id number] Univers 09:35:00 12:45:00 75454.1.1 ity of 3.104.2.7 [place] .3.957685 Medica l .8 Branch 2022-02-25 2022-02-25 Anesthesia Yung Arita 1.2.840.4 [id number] Univers 11:53:00 12:33:00 Event Francis Wong 18167.1.1 ity of 3.104.2.7 [place] .3.507177 Medica l .8 [place] 2022-02-24 2022-02-24 Travel 1.2.840.1 1.2.638.111 8532 [id number] Univers 00:00:00 00:00:00 08001.1.1 350.1.13.10 ity of 3.104.2.7 4[place].7.3.698 [place] .3.856841 084.8 Medica l .8 [place] 2022-02-18 2022-02-18 Orders Doctor 1.2.840.4 [id number] Univers 00:00:00 00:00:00 Only Unassigned, 83117.1.[address] [place] 3.104.2.7 [place] .3.931869 Medica l .8 Branch 2022-02-15 2022-02-15 Telephone Garita, 1.2.840.9 [id number] [id number] Univers 00:00:00 00:00:00 Stephanie Rose 05328.1.1 it y of 3.104.2.7 [place] .3.638371 Medica l .8 Branch 2022-02-09 2022-02-09 Telephone Garita, 1.2.840.6 [id number] Univers 00:00:00 00:00:00 Stephanie Rose 82990.1.1 it y of 3.104.2.7 [place] .3.990124 Medica l .8 [place] 2022-02-08 2022-02-08 [facility], 1.2.840.7 [id number] Univers 00:00:00 00:00:00 Management Stephanie Rose 83289.1.1 ity of 3.104.2.7 [place] .3.182892 Medica l .8 [place] 2022-02-04 2022-02-04 Hospital Kamlesh, Gal 1.2.840.9 [id number] Univers 15:17:56 23:59:00 Encounter 65661.1.1 it y of 3.104.2.7 [place] .3.872157 Medica l .8 [place] 2022-02-04 2022-02-04 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 Gal 1.2.840.1 [id number] Univers 15:30:00 15:47:42 Visit [facility] 81622.1.1 ity of 3.104.2.7 [place] .3.786141 Medica l .8 [place] 2022-02-04 2022-02-04 Office Kamlesh Gal 1.2.840.0 [id number] Univers 13:30:00 14:38:59 Visit 22903.1.1 ity of 3.104.2.7 [place] .3.962428 Medica l .8 Branch 2022-02-04 2022-02-04 Travel 1.2.840.1 1.2.012.132 9495 [id number] Univers 00:00:00 00:00:00 81028.1.1 350.1.13.10 ity of 3.104.2.7 4[place]7.3.698 [place] .3.791112 084.8 Medica l .8 Branch 2021-05-25 2021-05-26 Emergency Claudia, Janene RUST 1.2.840.114 [id number] 18:28:00 00:07:00 Misa Howe 350.1.13.10 [place] 4.2.7.2.686 [place] [id number] 084 2020-12-19 2020-12-19 Orders Doctor NEGRITO 1.2.840.114 [id number] 00:00:00 00:00:00 Only Unassigned, NAMR[place] 350.1.13.10 [place] [facility] 4.2.7.2.686 [id number] 009 2020-11-28 2020-11-28 Patient Sharon Bunn 1.2.840.114 [id number] 00:00:00 00:00:00 Outreach Micki Wilson 350.1.13.10 [place] 4.2.7.2.686 [id number] 403 2020-11-27 2020-11-27 Telephone Jeff, Angie 1.2.836.604 [id number] 00:00:00 00:00:00 Gianni Teresa 350.1.13.10 [facility] 4.2.7.2.686 [id number] 093 2020-10-06 2020-10-06 Outpatient BEE Garcia LABO [id number] [facility] 23:33:00 23:33:[address] Results Test Description Test Time Test Comments Results Result Comments Source COMP. METABOLIC PANEL (66310) 2022-05-27 01:04:32 Test Item Value Reference Range Interpretation Comme nts NA (test code = 9175938887) 135 mmol/L 135-145 K (test code = 8349218187) 2.3 mmol/L 3.5-5 LL CL (test code = 6559697004) 102 mmol/L 98-108 CO2 TOTAL (test code = 4256383439) 21 mmol/L 23-31 L AGAP (test code = 0304866443) 2-16 BUN (test code = 8764307843) 5 mg/dL 7-23 L GLUCOSE (test code = 8237813476) 142 mg/dL 70-110 H CREATININE (test code = 0.68 mg/dL 0.6-1.25 3662104408) TOTAL BILI (test code = 0.6 mg/dL 0.1-1.9 9460647942) CALCIUM (test code = 8610954883) 7.9 mg/dL 8.6-10.6 L T PROTEIN (test code = 5290704145) 7.3 g/dL 6.3-8.2 ALBUMIN (test code = 8101410110) 3.2 g/dL 3.5-5 L ALK PHOS (test code = 8069796808) 100 U/L 34-122 ALTv (test code = 1742-6) 13 U/L 5-50 AST(SGOT) (test code = 0717019841) 17 U/L 13-40 eGFR (test code = 3575217913) mL/min/1.73m2 LU (test code = LU) Association [...] tests). Lab Interpretation (test code = Abnormal 96430-9) [facility] WITH [id number] 00:45:16 Test Item Value Reference Range Interpretation Comments WBC (test code = See_Comment [Automated 9390-2) message] The sy stem which generated this [...] RDW-SD (test code = 49.6 fL 38.5-51.6 19038-0) RDW-CV (test code = 15.1 % 12.1-15.4 788-0) PLT (test code = See_Comment [Automated 777-3) message] The sy stem which generated this result transmitted reference range : 150 - 328 10*3/ ?L. The reference r alisson was not used to interpret this result as normal/abnormal . MPV (test code = 11.2 fL 9.8-13 36924-3) NRBC/100 WBC (test See_Comment [Automat ed code = 5846791258) message] The system which generated this result transmitted reference range : 0.0 - 10.0 /100 WBCs. The refer ence range was not u sed to interpret th is result as normal/abnormal . NRBC x10^3 (test code See_Comment [Auto mated = 2320995169) message] The s ystem which generated this result transmitted reference range : 10*3/?L. The reference range was not used to interpret this result as normal/abnormal . GRAN MAT (NEUT) % 72.3 % (test code = 770-8) IMM GRAN % (test code 0.20 % = 1659773971) LYMPH % (test code = 19.9 % 736-9) MONO % (test code = 6.3 % 5905-5) EOS % (test code = 1.0 % 713-8) BASO % (test code = 0.3 % 706-2) GRAN MAT x10^3(ANC) 6.43 10*3/uL 1.99-6.95 (test code = 2314661129) IMM GRAN x10^3 (test 0-0.06 code = 2629916842) LYMPH x10^3 (test code 1.77 10*3/uL 1.09-3.23 = 731-0) MONO x10^3 (test code 0.56 10*3/uL 0.36-1.02 = 742-7) EOS x10^3 (test code = 0.09 10*3/uL 0.06-0.53 711-2) BASO x10^3 (test code 0.03 10*3/uL 0.01-0.09 = 704-7) Lab Interpretation Abnormal (test code = 30641-0) [facility] (NA, K, CL, CO2, GLUCOSE, BUN, CREATININE, CA)2022-04-29 10:41:04 Test Item Value Reference Range Interpretation Comments NA (test code = 141 mmol/L 135-145 7404310507) K (test code = 4.1 mmol/L 3.5-5 1360870563) CL (test code = 113 mmol/L 98-108 H 7805962185) CO2 TOTAL (test code = 26 mmol/L 23-31 5677873898) AGAP (test code = 2-16 3302099330) BUN (test code = 2 mg/dL 7-23 L 1755528219) GLUCOSE (test code = 77 mg/dL 70-110 2873854178) CREATININE (test code = 0.43 mg/dL 0.6-1.25 L 5166411696) CALCIUM (test code = 7.5 mg/dL 8.6-10.6 L 1753962358) eGFR (test code = mL/min/1.73m2 7559813028) LU (test code = LU) Association of [...] tests). Lab Interpretation Abnormal (test code = 91195-9) [facility] METABOLIC PANEL (NA, K, CL, CO2, GLUCOSE, BUN, CREATININE, CA)2022-04-29 10:41:04 Test Item Value Reference Range Interpretation Comments NA (test code = 141 mmol/L 135-145 1387006240) K (test code = 4.1 mmol/L 3.5-5.0 3872870259) CL (test code = 113 mmol/L 98-108 H 9950405045) CO2 TOTAL (test code = 26 mmol/L 23-31 2486068725) AGAP (test code = 2-16 9156738892) BUN (test code = 2 mg/dL 7-23 L 0559833201) GLUCOSE (test code = 77 mg/dL 70-110 0198866808) CREATININE (test code = 0.43 mg/dL 0.60-1.25 L 1853844739) CALCIUM (test code = 7.5 mg/dL 8.6-10.6 L 1557491500) eGFR (test code = mL/min/1.73m2 8175032403) LU (test code = LU) Association of [...] tests). Lab Interpretation Abnormal (test code = 29900-0) [facility] Test Item Value Reference Range Interpretation Comments MAGNESIUM (test code = 3249930658) 1.7 mg/dL 1.7-2.4 Lab Interpretation (test code = Normal 63072-8) [facility] 19:02:20 Test Item Value Reference Range Interpretation Comments MAGNESIUM (test code = 7968255358) 1.7 mg/dL 1.7-2.4 Lab Interpretation (test code = Normal 77244-5) [facility] METABOLIC PANEL (NA, K, CL, CO2, GLUCOSE, BUN, CREATININE, CA)2022-04-28 17:52:13 Test Item Value Reference Range Interpretation Comments NA (test code = 142 mmol/L 135-145 6414564512) K (test code = 2.6 mmol/L 3.5-5 LL 1400269610) CL (test code = 109 mmol/L 98-108 H 9782423997) CO2 TOTAL (test code = 26 mmol/L 23-31 6337065103) AGAP (test code = 2-16 0721903719) BUN (test code = 3 mg/dL 7-23 L 6499495035) GLUCOSE (test code = 95 mg/dL 70-110 2649398867) CREATININE (test code = 0.57 mg/dL 0.6-1.25 L 1639258840) CALCIUM (test code = 7.6 mg/dL 8.6-10.6 L 0788217571) eGFR (test code = mL/min/1.73m2 5045271618) LU (test code = LU) Association of [...] tests). Lab Interpretation Abnormal (test code = 25504-0) [facility] METABOLIC PANEL (NA, K, CL, CO2, GLUCOSE, BUN, CREATININE, CA)2022-04-28 17:52:13 Test Item Value Reference Range Interpretation Comments NA (test code = 142 mmol/L 135-145 1249721725) K (test code = 2.6 mmol/L 3.5-5.0 LL 9383655876) CL (test code = 109 mmol/L 98-108 H 1847342628) CO2 TOTAL (test code = 26 mmol/L 23-31 4041587782) AGAP (test code = 2-16 9371816863) BUN (test code = 3 mg/dL 7-23 L 2830552444) GLUCOSE (test code = 95 mg/dL 70-110 2733115788) CREATININE (test code = 0.57 mg/dL 0.60-1.25 L 3056942711) CALCIUM (test code = 7.6 mg/dL 8.6-10.6 L 6009525101) eGFR (test code = mL/min/1.73m2 5568291871) LU (test code = LU) Association of [...] tests). Lab Interpretation Abnormal (test code = 27690-7) [facility] METABOLIC PANEL (NA, K, CL, CO2, GLUCOSE, BUN, CREATININE, CA)2022-04-28 17:52:13 Test Item Value Reference Range Interpretation Comments NA (test code = 142 mmol/L 135-145 5429616939) K (test code = 2.6 mmol/L 3.5-5.0 LL 7868687511) CL (test code = 109 mmol/L 98-108 H 2504093357) CO2 TOTAL (test code = 26 mmol/L 23-31 6854260777) AGAP (test code = 2-16 6196136081) BUN (test code = 3 mg/dL 7-23 L 5835900662) GLUCOSE (test code = 95 mg/dL 70-110 2854599682) CREATININE (test code = 0.57 mg/dL 0.60-1.25 L 3278964221) CALCIUM (test code = 7.6 mg/dL 8.6-10.6 L 6667217655) eGFR (test code = mL/min/1.73m2 3013991579) LU (test code = LU) Association of [...] tests). Lab Interpretation Abnormal (test code = 01930-6) [facility] WITHOUT [id number] 17:16:02 Test Item Value Reference Range Interpretation Comments WBC (test code = 6690-2) See_Comment [A utomated message] The system [employer] generated this result transmit annette reference range : 4.20 - 10.70 10*3/?L. The reference range was not used to interpret this result as normal/abnormal . RBC (test code = 789-8) See_Comment L [Au tomated message] The system [employer] generated this result transmit annette reference range [...] 777-3) See_Comment [Au tomated message] The system [employer] generated this result transmit annette reference range : 150 - 328 10*3/?L. The reference range was not used to interpret this result as normal/abnormal . MPV (test code = 10.7 fL 9.8-13 51791-1) RDW-CV (test code = 14.9 % 12.1-15.4 788-0) RDW-SD (test code = 48.9 fL 38.5-51.6 28326-7) NRBC x10^3 (test code = See_Comment [Au tomated message] 0857227598) The system [employer] generated this result transmit annette reference range : 10*3/?L. The reference range was not used to interpret this result as normal/abnormal . NRBC/100 WBC (test code See_Comment [Au tomated message] = 0030107111) The system [facility] generated this result transmit annette reference range : 0.0 - 10.0 /100 WBC s. The reference r alisson was not used to interpret this result as normal/abnormal . IPF % (test code = 3679593902) Lab Interpretation (test Abnormal code = 07148-3) [facility] WITHOUT [id number] 17:16:02 Test Item Value Reference Range Interpretation Comments WBC (test code = 6690-2) See_Comment [A utomated message] The system [facility] generated this result transmit annette reference range : 4.20 - 10.70 10*3/?L. The reference range was not used to interpret this result as normal/abnormal . RBC (test code = 789-8) See_Comment L [Au tomated message] The system [facility] generated this result transmit annette reference [...] 777-3) See_Comment [Au tomated message] The system [employer] generated this result transmit annette reference range : 150 - 328 10*3/?L. The reference range was not used to interpret this result as normal/abnormal . MPV (test code = 10.7 fL 9.8-13.0 74945-0) RDW-CV (test code = 14.9 % 12.1-15.4 788-0) RDW-SD (test code = 48.9 fL 38.5-51.6 74524-8) NRBC x10^3 (test code = <0.01 See_Comment [Au tomated message] 3142407337) The system [employer] generated this result transmit annette reference range : 10*3/?L. The reference range was not used to interpret this result as normal/abnormal . NRBC/100 WBC (test code See_Comment [Au tomated message] = 3312469177) The system [employer] generated this result transmit annette reference range : 0.0 - 10.0 /100 WBC s. The reference r alisson was not used to interpret this result as normal/abnormal . IPF % (test code = 2087642538) Lab Interpretation (test Abnormal code = 96927-0) [facility] WITHOUT [id number] 17:16:02 Test Item Value Reference Range Interpretation Comments WBC (test code = 6690-2) See_Comment [A utomated message] The system [employer] generated this result transmit annette reference range : 4.20 - 10.70 10*3/?L. The reference range was not used to interpret this result as normal/abnormal . RBC (test code = 789-8) See_Comment L [Au tomated message] The system [employer] generated this result transmit annette reference range [...] 777-3) See_Comment [Au tomated message] The system [employer] generated this result transmit annette reference range : 150 - 328 10*3/?L. The reference range was not used to interpret this result as normal/abnormal . MPV (test code = 10.7 fL 9.8-13.0 08745-1) RDW-CV (test code = 14.9 % 12.1-15.4 788-0) RDW-SD (test code = 48.9 fL 38.5-51.6 82955-4) NRBC x10^3 (test code = <0.01 See_Comment [Au tomated message] 0366393797) The system [employer] generated this result transmit annette reference range : 10*3/?L. The reference range was not used to interpret this result as normal/abnormal . NRBC/100 WBC (test code See_Comment [Au tomated message] = 6607678664) The system [employer] generated this result transmit annette reference range : 0.0 - 10.0 /100 WBC s. The reference r alisson was not used to interpret this result as normal/abnormal . IPF % (test code = 2267620518) Lab Interpretation (test Abnormal code = 97431-3) [facility] [id number] 22:31:26 Test Item Value Reference Range Interpretation Comments K (test code = 7254248315) 3.3 mmol/L 3.5-5 L Lab Interpretation (test code = Abnormal 66559-7) [facility] METABOLIC PANEL (NA, K, CL, CO2, GLUCOSE, BUN, CREATININE, CA)2022-04-27 22:31:26 Test Item Value Reference Range Interpretation Comments NA (test code = 144 mmol/L 135-145 6861802730) K (test code = 3.3 mmol/L 3.5-5 L 7839555636) CL (test code = 112 mmol/L 98-108 H 4133660031) CO2 TOTAL (test code = 27 mmol/L 23-31 2727637069) AGAP (test code = 2-16 3732654032) BUN (test code = 5 mg/dL 7-23 L 1510644291) GLUCOSE (test code = 118 mg/dL 70-110 H 0380968898) CREATININE (test code = 0.63 mg/dL 0.6-1.25 7636291523) CALCIUM (test code = 7.6 mg/dL 8.6-10.6 L 0610792936) eGFR (test code = mL/min/1.73m2 6679580627) LU (test code = LU) Association of [...] tests). Lab Interpretation Abnormal (test code = 98565-1) [id number] 22:31:26 Test Item Value Reference Range Interpretation Comments K (test code = 4826713041) 3.3 mmol/L 3.5-5.0 L Lab Interpretation (test code = Abnormal 89009-7) [facility] [id number] 22:31:26 Test Item Value Reference Range Interpretation Comments K (test code = 6733112937) 3.3 mmol/L 3.5-5.0 L Lab Interpretation (test code = Abnormal 24693-1) [facility] METABOLIC PANEL (NA, K, CL, CO2, GLUCOSE, BUN, CREATININE, CA)2022-04-27 22:31:26 Test Item Value Reference Range Interpretation Comments NA (test code = 144 mmol/L 135-145 [id number]) K (test code = 3.3 mmol/L 3.5-5.0 L 2416757880) CL (test code = 112 mmol/L 98-108 H 0875813405) CO2 TOTAL (test code = 27 mmol/L 23-31 8202684371) AGAP (test code = 2-16 4541485410) BUN (test code = 5 mg/dL 7-23 L 7532440963) GLUCOSE (test code = 118 mg/dL 70-110 H 5038007053) CREATININE (test code = 0.63 mg/dL 0.60-1.25 1086378165) CALCIUM (test code = 7.6 mg/dL 8.6-10.6 L 7308168722) eGFR (test code = mL/min/1.73m2 1889627349) LU (test code = LU) Association of [...] tests). Lab Interpretation Abnormal (test code = 42221-5) [facility]2022-07-05 21:22:49 Test Item Value Reference Range Interpretation Comments MAGNESIUM (test code = 3307776321) 2.1 mg/dL 1.7-2.4 Lab Interpretation (test code = Normal 45997-0) [facility] Test Item Value Reference Range Interpretation Comments MAGNESIUM (test code = 1820734708) 2.1 mg/dL 1.7-2.4 Lab Interpretation (test code = Normal 23767-7) [facility]:22:[facility] Test Item Value Reference Range Interpretation Comments MAGNESIUM (test code = 2765588450) 2.1 mg/dL 1.7-2.4 Lab Interpretation (test code = Normal 70120-7) [facility] (NA, K, CL, CO2, GLUCOSE, BUN, CREATININE, CA)2022-04-27 15:50:29 Test Item Value Reference Range Interpretation Comments NA (test code = 143 mmol/L 135-145 8727753255) K (test code = 2.4 mmol/L 3.5-5 LL 4264586580) CL (test code = 110 mmol/L 98-108 H 0351682256) CO2 TOTAL (test code = 28 mmol/L 23-31 9028808628) AGAP (test code = 2-16 8675478035) BUN (test code = 4 mg/dL 7-23 L 3451673679) GLUCOSE (test code = 56 mg/dL 70-110 L 2559605586) CREATININE (test code = 0.65 mg/dL 0.6-1.25 2467575830) CALCIUM (test code = 7.7 mg/dL 8.6-10.6 L 6221336143) eGFR (test code = mL/min/1.73m2 0191171634) LU (test code = LU) Association of [...] tests). Lab Interpretation Abnormal (test code = 24691-8) [facility] METABOLIC PANEL (NA, K, CL, CO2, GLUCOSE, BUN, CREATININE, CA)2022-04-27 15:50:29 Test Item Value Reference Range Interpretation Comments NA (test code = 143 mmol/L 135-145 3780785850) K (test code = 2.4 mmol/L 3.5-5.0 LL 3186756275) CL (test code = 110 mmol/L 98-108 H 5248588202) CO2 TOTAL (test code = 28 mmol/L 23-31 0424419087) AGAP (test code = 2-16 8165353741) BUN (test code = 4 mg/dL 7-23 L 2925069728) GLUCOSE (test code = 56 mg/dL 70-110 L 8400053648) CREATININE (test code = 0.65 mg/dL 0.60-1.25 3265719577) CALCIUM (test code = 7.7 mg/dL 8.6-10.6 L 5485413348) eGFR (test code = mL/min/1.73m2 2772204442) LU (test code = LU) Association of [...] tests). Lab Interpretation Abnormal (test code = 93620-6) [facility] [id number] 23:23:37 Test Item Value Reference Interpretation Comments Range TROPONIN I (test 0.007 ng/mL See_Comment [Automated code = 7001884359) message] The system which generated this result [...] biotin. Lab Interpretation Normal (test code = 68020-6) [facility] ([id number])2022-04-26 23:23:37 Test Item Value Reference Range Interpretation Comments NA (test code = 143 mmol/L 135-145 9768702683) K (test code = 2.3 mmol/L 3.5-5 LL 6986219987) CL (test code = 107 mmol/L 98-108 2981348013) CO2 TOTAL (test code = 27 mmol/L 23-31 1044032573) AGAP (test code = 2-16 6915556584) BUN (test code = 4 mg/dL 7-23 L 3805629068) GLUCOSE (test code = 86 mg/dL 70-110 4366700198) CREATININE (test code = 0.73 mg/dL 0.6-1.25 7634608347) TOTAL BILI (test code = 0.7 mg/dL 0.1-1.3 5880614924) CALCIUM (test code = 7.6 mg/dL 8.6-10.6 L 7550296059) T PROTEIN (test code = 6.5 g/dL 6.3-8.2 6603739365) ALBUMIN (test code = 2.7 g/dL 3.5-5 L 1326046208) ALK PHOS (test code = 96 U/L 34-122 5035301153) ALTv (test code = 13 U/L 5-50 2-6) AST(SGOT) (test code = 22 U/L 13-40 1124610044) eGFR (test code = mL/min/1.73m2 2845916514) LU (test code = LU) Association of [...] tests). Lab Interpretation Abnormal (test code = 76355-2) [facility] [id number] 23:23:37 Test Item Value Reference Interpretation Comments Range TROPONIN I (test 0.007 ng/mL See_Comment [Automated code = 3284710432) message] The system which generated this result [...] biotin. Lab Interpretation Normal (test code = 22326-0) [facility]. METABOLIC PANEL ([id number])2022-04-26 23:23:37 Test Item Value Reference Range Interpretation Comments NA (test code = 143 mmol/L 135-145 2763511016) K (test code = 2.3 mmol/L 3.5-5.0 LL 6391159826) CL (test code = 107 mmol/L 98-108 0903142828) CO2 TOTAL (test code = 27 mmol/L 23-31 1987860315) AGAP (test code = 2-16 2824461787) BUN (test code = 4 mg/dL 7-23 L 5415213548) GLUCOSE (test code = 86 mg/dL 70-110 8258751507) CREATININE (test code = 0.73 mg/dL 0.60-1.25 5189753197) TOTAL BILI (test code = 0.7 mg/dL 0.1-1.1 4371700168) CALCIUM (test code = 7.6 mg/dL 8.6-10.6 L 5132018215) T PROTEIN (test code = 6.5 g/dL 6.3-8.2 4884051386) ALBUMIN (test code = 2.7 g/dL 3.5-5.0 L 0757369720) ALK PHOS (test code = 96 U/L 34-122 6926632954) ALTv (test code = 13 U/L 5-50 1742-6) AST(SGOT) (test code = 22 U/L 13-40 4036387870) eGFR (test code = mL/min/1.73m2 0089333537) UL (test code = LU) Association of [...] tests). Lab Interpretation Abnormal (test code = 23492-1) [facility]ENETTAAna [id number] 23:23:37 Test Item Value Reference Interpretation Comments Range TROPONIN I (test 0.007 ng/mL See_Comment [Automated code = 5072705004) message] The system which generated this result [...] biotin. Lab Interpretation Normal (test code = 73064-7) [facility]. METABOLIC PANEL ([id number])2022-04-26 23:23:37 Test Item Value Reference Range Interpretation Comments NA (test code = 143 mmol/L 135-145 9403313154) K (test code = 2.3 mmol/L 3.5-5.0 LL 1505668897) CL (test code = 107 mmol/L 98-108 7198277400) CO2 TOTAL (test code = 27 mmol/L 23-31 7227477840) AGAP (test code = 2-16 9389873322) BUN (test code = 4 mg/dL 7-23 L 0377919768) GLUCOSE (test code = 86 mg/dL 70-110 0231911235) CREATININE (test code = 0.73 mg/dL 0.60-1.25 5639943351) TOTAL BILI (test code = 0.7 mg/dL 0.1-1.7 0662375544) CALCIUM (test code = 7.6 mg/dL 8.6-10.6 L 5691894532) T PROTEIN (test code = 6.5 g/dL 6.3-8.2 3872010667) ALBUMIN (test code = 2.7 g/dL 3.5-5.0 L 8952478587) ALK PHOS (test code = 96 U/L 34-122 5837568613) ALTv (test code = 13 U/L 5-50 1742-6) AST(SGOT) (test code = 22 U/L 13-40 6862470210) eGFR (test code = mL/min/1.73m2 4101829437) LU (test code = LU) Association of [...] tests). Lab Interpretation Abnormal (test code = 56279-4) [facility]-TERMINAL [id number] 23:20:37 Test Item Value Reference Range Interpretation Comments NT-proBNP (test code 393 pg/mL See_Comment H [Autom ated = 5314507464) message] The system which generated this result transmitted reference range : <=125. The reference range was not used to interpret this result as normal/abnormal . LU (test code = LU) Biotin has been reported to cause a negative bias, interpret results relative to patient's use of biotin. Lab Interpretation Abnormal (test code = 61151-0) [facility]-TERMINAL [id number] 23:20:37 Test Item Value Reference Range Interpretation Comments NT-proBNP (test code 393 pg/mL See_Comment H [Autom ated = 6559717396) message] The system which generated this result transmitted reference range : <=125. The reference range was not used to interpret this result as normal/abnormal . LU (test code = LU) Biotin has been reported to cause a negative bias, interpret results relative to patient's use of biotin. Lab Interpretation Abnormal (test code = 76026-7) [facility]-TERMINAL [id number] 23:20:37 Test Item Value Reference Range Interpretation Comments NT-proBNP (test code 393 pg/mL See_Comment H [Autom ated = 7749867462) message] The system which generated this result transmitted reference range : <=125. The reference range was not used to interpret this result as normal/abnormal . LU (test code = LU) Biotin has been reported to cause a negative bias, interpret results relative to patient's use of biotin. Lab Interpretation Abnormal (test code = 07697-3) [facility] 23:11:39 Test Item Value Reference Range Interpretation Comments LIPASE (test code = 2500508141) 78 U/L 0-220 Lab Interpretation (test code = Normal 93133-1) [facility] 23:11:39 Test Item Value Reference Range Interpretation Comments LIPASE (test code = 6072215668) 78 U/L 0-220 Lab Interpretation (test code = Normal 27376-2) [facility] 23:11:39 Test Item Value Reference Range Interpretation Comments LIPASE (test code = 4816347099) 78 U/L 0-220 Lab Interpretation (test code = Normal 78565-2) [facility] WITH [id number] 22:55:18 Test Item Value Reference Range Interpretation Comments WBC (test code = See_Comment [Automated 6690-2) message] The sy stem which generated this result transmitted reference range : 4.20 - 10.70 10*3/?L. The reference range was not used to interpret this result as normal/abnormal . RBC (test code = See_Comment L [Automated 829-8) message] The sy stem which generated this [...] RDW-SD (test code = 45.2 fL 38.5-51.6 65707-5) RDW-CV (test code = 14.3 % 12.1-15.4 788-0) PLT (test code = See_Comment [Automated 777-3) message] The sy stem which generated this result transmitted reference range : 150 - 328 10*3/ ?L. The reference r alisson was not used to interpret this result as normal/abnormal . MPV (test code = 10.5 fL 9.8-13 14836-7) NRBC/100 WBC (test See_Comment [Automat ed code = 2462806893) message] The system which generated this result transmitted reference range : 0.0 - 10.0 /100 WBCs. The refer ence range was not u sed to interpret th is result as normal/abnormal . NRBC x10^3 (test code See_Comment [Auto mated = 6966595096) message] The s ystem which generated this result transmitted reference range : 10*3/?L. The reference range was not used to interpret this result as normal/abnormal . GRAN MAT (NEUT) % 73.6 % (test code = 770-8) IMM GRAN % (test code 0.30 % = 9390402747) LYMPH % (test code = 20.6 % 736-9) MONO % (test code = 4.9 % 5905-5) EOS % (test code = 0.3 % 713-8) BASO % (test code = 0.3 % 706-2) GRAN MAT x10^3(ANC) 6.49 10*3/uL 1.99-6.95 (test code = 6070824386) IMM GRAN x10^3 (test 0.03 10*3/uL 0-0.06 code = 3719086249) LYMPH x10^3 (test code 1.82 10*3/uL 1.09-3.23 = 731-0) MONO x10^3 (test code 0.43 10*3/uL 0.36-1.02 = 742-7) EOS x10^3 (test code = 0.03 10*3/uL 0.06-0.53 L 711-2) BASO x10^3 (test code 0.03 10*3/uL 0.01-0.09 = 704-7) Lab Interpretation Abnormal (test code = 90474-3) [facility] WITH [id number] 22:55:18 Test Item Value Reference Range Interpretation [...] RDW-SD (test code = 45.2 fL 38.5-51.6 53101-0) RDW-CV (test code = 14.3 % 12.1-15.4 788-0) PLT (test code = See_Comment [Automated 777-3) message] The sy stem which generated this result transmitted reference range : 150 - 328 10*3/ ?L. The reference r alisson was not used to interpret this result as normal/abnormal . MPV (test code = 10.5 fL 9.8-13.0 16197-4) NRBC/100 WBC (test See_Comment [Automat ed code = 5295449417) message] The system which generated this result transmitted reference range : 0.0 - 10.0 /100 WBCs. The refer ence range was not u sed to interpret th is result as normal/abnormal . NRBC x10^3 (test code <0.01 See_Comment [Auto mated = 1553779057) message] The s ystem which generated this result transmitted reference range : 10*3/?L. The reference range was not used to interpret this result as normal/abnormal . GRAN MAT (NEUT) % 73.6 % (test code = 770-8) IMM GRAN % (test code 0.30 % = 6587797912) LYMPH % (test code = 20.6 % 736-9) MONO % (test code = 4.9 % 5905-5) EOS % (test code = 0.3 % 713-8) BASO % (test code = 0.3 % 706-2) GRAN MAT x10^3(ANC) 6.49 10*3/uL 1.99-6.95 (test code = 5779084642) IMM GRAN x10^3 (test 0.03 10*3/uL 0.00-0.06 code = 6997964122) LYMPH x10^3 (test code 1.82 10*3/uL 1.09-3.23 = 731-0) MONO x10^3 (test code 0.43 10*3/uL 0.36-1.02 = 742-7) EOS x10^3 (test code = 0.03 10*3/uL 0.06-0.53 L 711-2) BASO x10^3 (test code 0.03 10*3/uL 0.01-0.09 = 704-7) Lab Interpretation Abnormal (test code = 49684-8) [facility] WITH [id number] 22:55:18 Test Item Value Reference Range Interpretation Comments WBC (test code = See_Comment [Automated 6990-2) message] The sy stem which generated this result transmitted reference range : 4.20 - 10.70 10*3/?L. The reference range was not used to interpret this result as normal/abnormal . RBC (test code = See_Comment L [Automated 999-8) message] The sy stem which generated this [...] RDW-SD (test code = 45.2 fL 38.5-51.6 56843-5) RDW-CV (test code = 14.3 % 12.1-15.4 788-0) PLT (test code = See_Comment [Automated 777-3) message] The sy stem which generated this result transmitted reference range : 150 - 328 10*3/ ?L. The reference r alisson was not used to interpret this result as normal/abnormal . MPV (test code = 10.5 fL 9.8-13.0 41174-1) NRBC/100 WBC (test See_Comment [Automat ed code = 1696580285) message] The system which generated this result transmitted reference range : 0.0 - 10.0 /100 WBCs. The refer ence range was not u sed to interpret th is result as normal/abnormal . NRBC x10^3 (test code <0.01 See_Comment [Auto mated = 6291027134) message] The s ystem which generated this result transmitted reference range : 10*3/?L. The reference range was not used to interpret this result as normal/abnormal . GRAN MAT (NEUT) % 73.6 % (test code = 770-8) IMM GRAN % (test code 0.30 % = 6492330387) LYMPH % (test code = 20.6 % 736-9) MONO % (test code = 4.9 % 5905-5) EOS % (test code = 0.3 % 713-8) BASO % (test code = 0.3 % 706-2) GRAN MAT x10^3(ANC) 6.49 10*3/uL 1.99-6.95 (test code = 5638926410) IMM GRAN x10^3 (test 0.03 10*3/uL 0.00-0.06 code = 3550981335) LYMPH x10^3 (test code 1.82 10*3/uL 1.09-3.23 = 731-0) MONO x10^3 (test code 0.43 10*3/uL 0.36-1.02 = 742-7) EOS x10^3 (test code = 0.03 10*3/uL 0.06-0.53 L 711-2) BASO x10^3 (test code 0.03 10*3/uL 0.01-0.09 = 704-7) Lab Interpretation Abnormal (test code = 02250-0) [facility] [id number] 16:42:42 Test Item Value Reference Range Interpretation Comments Case Report (test code Surgical Pathology ? ? = 3575443335) ?Case: [id number] ? Authorizing Provider: ?Negrito Simeon MD ? Collected: ? 03/12/2022 1050 ?Ordering Location: ? ? [facility] ? ? ?Received: ?03/12/2022 1656 ? [facility] ?Pathologist: ? Carolin Ruiz MD ? Specimens: ? A) - APPENDIX ? B) - HERNIA SAC, RIGHT INGUINAL, RIGHT INGUINAL HERNIA SAC ? Final Diagnosis (test b8gyeAWvJNZlb6vzIPTvoL code = 5129099194) FuZzEwMzNcZnRuYmpcdWMx IHtccnRmMVxhbnNpXGRlZm muawgbNLQjEBV9zdErRFSm SNZ5XUG4KsMpVGOrUqz4KS PhMT6hkAxneZy4jVxbJCVv grZ8bLSfEFabm5dgZJF4f3 xjpiypWDZoXPncZj9uqSGs yWdvBvKvHFJoLMj1fK02ON BwhJ3vlGKeWRypnxBsMmC7 QUaqJWDvXsK7TAAzaXJmOV Y1qZniHNVikfssYdM9ZQhc DUHdiyarCXl5GFfzMGLdeU Y5EOGenQAjM3FhRXYvJO9j ixk8GDV0YMxlSCOiVfU7WM VlrBQqGKIjfSlhRJnsv773 KDV1ZkJmMSXqyySfcZhxnF 5fQfGiVXllNOJuPP5zBWZQ WJ1AFHpbXGWVBDMOWAMSKB 9NWTpccGFyICAgICAtIEJF TklHTiBBUFBFTkRJWCBUSV CEHMIdR8cYKCVFFMYNUUmc C83YG8HFFMmOApWCQmMGMO NJMBZJNR4NSKDGRPmsYSQF LI1HCACQEHYYCXKuyJSmVF KdouMMUjOtE0ruMuYyoREm SEVSTklBIFNBQywgRVhDSV EBK355RSQfrup+ZP4gzqg+ RH8gNKQGRdzTFsLWNZVHVH oVGDoYFHKIGQ8GMNBLGCRQ O8XUNWXUV4PcZSmTU6YSQV fFDOdjIjFUH7EAZCMsN78Y H5IGSElZPlwtLAShvzUvMU OfITZsS18EJ5sFURJDZUGO XAFTFHmVLs8YEPEIYERonK GtBLThU2VtWVLaPKEqfkuj czIyIExpbmRzYXkgQmlnaG IhCTMMDlLjNT1rMD3sFAHt CLJ6KzMfIJTXFUHiuekjch JdWWRkem64GCX5UiQcb9Y4 CHFgJfBnQKXbQA3ucAybYR ViTT4gVGCaQ6zltV5xite2 UtMvRWAeBxX0MVQngcI8Yp k0LPBzPCuqg3tuy5YtH1Ay cGJvaTf4i9wjQBYiNvL7uN KjQIjpB7tpwsCnzVZsWVTz NZs1wOvmHpGsUZWvl3bxqs BcZmNoYXJzZXQwIENhbGli qvo2mO62AXRxmY7coSJsCH cueeWlXbV7AFneOHGxOqJ0 JTKfkKEcCOGrU4aqYVSnVB vsFXLaLEdrmZUjJIZ2gWpt c9E5iSIfeGXjaLqkBhXhNb YtZSLVn0KeUBq8jVjvO4Js UPEbQoM3gERaZBNbJCueME WyQQRbqjI9nS13ZHkcerS0 pZEli6Ljw09yn633rW4mvX PdZER2ZWJsUVKfrOXlJSZf GUX0WCWquXEjV6zoVIMaQY 9ysmbfNYklDBxyXBZmnFI6 KTEgyDLlF5NxTLIdQIjrVK Ltumv9RuXhLs5cfAVkpGtu EKmff5vxf3amkYWwYto5BO WcUvZrCktePAygi5Rca6xw KMNbdo4cQRN8qKPjvHlao2 Z3fRNmXANdiERgrrDnQVZx QkC4LCmiOR1aos17YKYwIQ A6oh3dhPCtpYdlteWboDXb UBjdI5FoEXQma562KYShE5 SrGKZdb4V6yhIrAaMvSMEp bAK6mfP7OVJsGXu7rYFzwi G7caTodYIoO2dsvU2pPHFl DG9nlokea5oePBnqDIutCO AkdVM0slN6QIPzdJPsD8Tl aQ0mZRGaXNywEYSvpkw5Uz YkKi2ykTRhhDieBQhpTitn YWdlXHBnbmNvbnRccGduZG VjXHBsYWluXHBsYWluXGYw RZRdClVgqYyguSksdI6qNz GwSxQoFWagSS7tULDlX7bf xBDvNFYqFUDoX3pcPgIjjA 9jaFxmMVxjZjJcZnMyMFxw YXIgSSBoYXZlIHBlcnNvbm PncLabsnZ2qJW4EUFcKPzd WOVrWLMihXBpwi6yjBzkGU GoDO8tJMJrgaMkUHurtLbz FMqzNXS4FIWhnCMvzMSfjO FkZSBieSByZXNpZGVudHMs XVCvpEdrp9Vhw3XqzFF8vY 9tj0koj5NyWCEhpAR8VK55 ezZ3dH5nUJHyHR0tKUIfNZ 8aqLZbfNFpWJZbq66rwDax cyByZXBvcnQuXHBsYWluXG YyXGZzMjhcbGFuZzEwMzNc aGljaFxmMlxkYmNoXGYyXG opA8yyBnAhIuGjDMpkGNR0 zDligpTrCKunp3LxH0IcPj AwMFxhbnNpXGRlZmxhbmcx PYQpVIP9pqAbHDZvGGnrAX LwMXfxBz0chSJwpBxaOnVg SYEvp4ojozDCWOnfXqQlM1 97LTIgZZtuw1cqe4StKRXm qXBol7O0GVCGvceodWo1jH gdN61hs3A7YocuV1guZQUw TBRxY8CiBU8aQPOcNhp8BQ O0CLZ0AMVuSICtZ9NeNN4o GWPokSPxTZf4g4xigEayNA ApEMO9g0roNZtfjzU1RO8p wu0naVp6t9djudZfAMNjWS CojDRVJAArT4BvdBtxYp6c rXu8xXehFwtdGOZ2Smn7RW 7vdw10tdl4fEuoZUJfjnwz QxY4QCxaCEXinbkmPLi9RD isIAHpwGN4HSIleFGwY5Oq XXFtOC6cvok6AVP0NMyjIP SvPbR2OTVuaCJzGWZryKdq XRkwn249TLE4FiScGC7oB7 Gqu7L9mP4geILeDUXgjBUl LeXuNBNjjd9lyFMtECrvp0 TzC18bpXH9QCbdp0saLJ7o XzF6bzSiKXkaa3sjfY6dUc G5BJzvQR7txc56ALPwDWR2 vl0tyTHwtCracqNjcHTxWZ ikQ9CvPOZbr016QJJrI9Av XKVqn9V2trVdZfVyXZArtN M6ivG0BWFrRPk4qNFzfgI2 szWdqREoO3kjxY7eDKVlJE 1wjbzay8znDLmlUFwzRDFl xKV9khG3YVDnpTViB8MxbX 7nTRJaATqpWTNavbz5DzTz Ds6wjJFarFdvOShsUndyTA dlXHBnbmNvbnRccGduZGVj XHBsYWluXHBsYWluXGYwXG VmGjLubQDnUDiug0WvoaGs iOpuLRIoWCl6dlWheqtdnV u9yROauVeoKWKdgXewyQ8g PfVsMiJhXTvpXL8tQZToO8 wajBHjKEJzWPUqT6luEeUj hW9lyEyjJRebSkSpMdLhPV xsdHJjaFxwYXIgSSBoYXZl RHLavuRwjuBjlCznnxV3hY C5GPCwVSbsJKGwRASbiGRr ds2dlHukIOAvWV2mUGGaem KbBKcjzIguRCyiOTX4YYKk bWVudHMgbWFkZSBieSByZX FwTHZpwQArFHEblZxts4Ew o8KdbXV0mI2vb3ksh8JgDL ShrXO7GG33rwF9oT5uTOMa ER5gSLBrOO0nySTbuCCnDS Nep55quSbufwJwFIZgcqLu XHBsYWluXGYxXGZzMjBcbG FuZzEwMzNcaGljaFxmMVxk DkXjCUQoYDpbX9vmZkWgH8 YyXGZzMjBccGFyXHBhclxw JWXxq8PePnApw2tnKKdox6 czpDt5VEmkfFXyqxjjIQrd kbR6WIIgCUjkKRJeFOYjQE RcbGFuZzEwMzNcaGljaFxm TMzvGpZjLMTpAOuiV9qzQw VxK7UmINFgWJSpfEOhB2wz WXX5dE9yi5vyj7ZfmASwFg Xwd1ssrjYgFVGhnLAukgOb wZXeSTDhb0OhPEXqQCMsSO TZHs6NAUOpfIShK3l9nYWA WJ6uvOEeBGMrEYIbD1OuKu YJeeEeb4V5NRHxoPKtXRXU KXKjpVOpG2z8zClrULibJq y7AdUorWlklK2nRuDpDpCj AYpjPK7fWMBzZ2eddINbGO HtMZBrD6ciJwAfaY7rjLmf MVxjZjJcZnMyMFxsdHJjaF ywZOO1fI== Clinical Information RIGHT INGUINAL HERNIA (test code = 2825850714) Gross Description (test y8pbnOWcEIQeoHMQLUTaW6 code = [id number]) tpxkYzQTOowKDxZ7Fncyab XHdpHV7cLU9hgOemtAFwtA JzZP8SPQGxVvSqIUYkpLDp xvPfSzVzQCYsyQNcdEF8IE EtCF7xutxbXRmeQEmmIHWy qnC4BFEdgPNkZ2FjDAJpOA 1vwxgfPVI5ANkblA5feqPG LyhcMc5tgIYzsFkoCdTjWx NoYXJzZXQwXGZuaWwgQXJp GCj3zI0YBdgdPIF6RFSLLw gkEHVdRO4Dh3ieKJLnlESj LNI6KTigqUJvUGOqDGTsLR j6VELtTRjkeUZdLM7egDbi AmjbsOiai9IfxURnGNkyKL FqPBDbZUqjDYGwJJ4PRqBk ZIP5AUmyHIbvVYd8SJe8KU 9WUyAiICAxODgyOTUyMSIg RWi9SPppNJ9VWBJ0YvP6DB T3YzdfOWToWwjsFPr1LRZn XFxmIEFyaWFsIFxcZnMgMT SaICnghRShIL2lgYnjfKTt blxmczIwIFNQRUNJTUVOIE XwjNSkDJ5DXGBaMGeeCYBj zPWWIUU9YL1mAWXFBxsaaS DsVPTghYpsATomiZ9vDH6L XKl5ghFqUQJiCjJeW2SiJ5 xiUQ4zWSEbtiDzHXOtoQPm QQUabhGip0KoGScomnNtLH JlbGVkIHdpdGggdGhlIHBh wHfgrxPlshUjHL0kPTRPWF AtcH6aHBOhLxSyzFAqUXz7 JtyfYE7mQTOmomCns1XiIZ 9mIGFuIGludGFjdCwgdmVy ePwjd0UmPWRweGOfHPn8EP f7ApEcA74ydD3rdZSdB0Qq HQsmMV06LMPtBRCbcWKvin QydSAcRETghcrbl5o4uMEn yODnF9jjDFXcGQFbQDCoBC 5xsNzsHP4iAKKmW8D1nMRa sLzmWCEoAQYgN0Vxm58adT MrZ1poBqYBmYBjo7Vpb9Vx RGkzSSNysa8leG0pBFEuIF DyknMzp91ckeTseMp6UUAy w804vNH0dHUtIUPlcynvs8 CiTVT5USZaHHcaLfMJeJMu t0XnA6bwSC2eoYGlj7JuwB QhcRnbt0EfiBxbqeJcDGUt DTYirjBhaXE0FS3jzXnhzg DriJIry7WiWoLqPCUdWC3z QOMyyQEeXL7budPgH3ysXb Gkbq6cRJEbrrDtkQ65NSEb NSBjbSBpbiBkaWFtZXRlci H9eQV0ILLizsPncS6eRKDl V01wvJ90soZlbM78ksWsb6 Gvx40dbTM6MA8nVzPcw20m TsBbXWbipLH0FRNoIPmxOL 9xIWSeosOftmO0uN8shbRr hqDwQ7Oqr5ZuzKGtGPVwjS tozGMtIzYOWYI3wA8nqnH3 byBpbmNsdWRlIHRoZSBlbi NbFGNdECVkf9PmcXqdoeYw RAMkyS3vQNxuh9YfYOHxwW UpLCByZXByZXNlbnRhdGl2 UIKxqa8cdz3nWSM9mA1bKR JxqyJgGzsdIWH5HRTanPnu YKTsEFCdvGZvpAH1TFXtwN 1jRERlFGvyvFbrtV4mAKBx S00kr7VOq0VsQUXjYMzic2 brqDymc4ZalPEgNOgnSRLn bZVqRMmspK2gSoVnh2vjhW n9ZSluhsU5KMNeax0WQqyl QcsulWgol4CmwHGaURxqKZ ZpIUMgLZhhRLZvMO2NXpAk ZIQ3KXtcTBwsJUd5NHf7XE 1YKyJiALFfEGeaCPy4BJEp TFb5UEwbQS0CPZT0CjX7XM T5XJQxHWPhXdhmSZj4RLFz XFxmIEFyaWFsIFxcZnMgMT FiJSdlxARxOZ0ztLezhdIn IFNQRUNJTUVOIEJccGFyIA 3EHCGnTOssBHXelOMFPWI8 JE5lONBTLzsniKIuUVQasI dsQAuduN2iHO7JATa2rcNq KZSbHgXeU8KwS8idJT3lZj BpcyByZWNlaXZlZCBpbiBm k1LePXbypmZsVDBufGUqPR dpdGggdGhlIHBhdGllbnQn tnAbOY1wRNZRVEPnmZ0oWU CoVtUfwYlgkVIuitr5vY5h uFYqSSEcbGFnf8JaJwsfED 4mJUDwmdNpp6DtVX8bXCSx bQZcZWOoskgkm5UeQ9FvRK Yjz47kuGF1oLCfePUiGdLs W62baaTrXDCsEXK4MYWzAZ B2PNGcPxIaxVyce7hqR1dw iLNtk8AajUJixMwfn3QslL lvbmVkIHRvIHJldmVhbCB0 JM9jnHixuzSiTF7fsuAxq1 PpJIK1gBGedDUdAHUrit0w RRRdnQNhy3CabNO6iGGfBM BaX5Exv26tGNXdCGSdtLEx iKX6UHBufF8mLqDmDTLjqy BVKfcdEGIbPUgQCPO9BZMw amVzdGthLCBQQSAoQVNDUC kNClxwbGFpblxlcGljTmVz hFScXfAwtSnboJ96DTZasT YbVSA2VX9fEHFdjkkgSYEe HNEfWLG5CSwwdX31xQIaHJ PdGTCzvLIypD5XRHVyEWR4 ALxtwJ83wBSfLZ2KFYJsGR I9MYWdfMOsKPP1BZ0pnG6J fQ== Disclaimer (test code = y4gghPUlJXDso4rzAXSlvC [id number]) FuZzEwMzNcZnRuYmpcdWMx USnoilTsKJgwn8TqJ2DmJz AwMFxhbnNpXGRlZmxhbmcx ACTiAXQ2udSxEGOkDDcrYW YzZBaiNq1naDXzkDpfVmHh MMHmq0zuesGGWKbgLeMyY1 36HDSwZOcun0toc7YjAAEm qTUqs7N7UVRRckrcbRr3cX phD28ef1G1SxtrF6plHPHx BNOjQ7UjVZ9dNNGpNny4PS Z9ZBT8ORSdCVXzG0DwDX1g BXNaeECuQZo1g7awlSbfYL NuESN8b0cjGKsvmwEvBU7u wu1gxFw0n8prhmLuLKAtSR UiiCIUPILkY6VtlKneOb4u dZj1yGcsEjqhPTD6Fhi8IN 8uou70fwk8fSjtOXDwteoy QwK3NUhkXGNabwvmABe7OF zuKZKebZD7PBLysFXhA8Pl QSWgYN4xlur8DUY1OPcyAT HfYnQ0AIDpuWCnKLNjnIli PJgpb668HVK7FaDbRA7tG2 Zxo4J7vN8myFBjYWJuzFBp ZyCjYZJywn7inBJgSEixp9 BlQSW1mnP9kQNibICcVDLv KG39Iawiz3BaGdvvs7GrE6 4esHN5YMfhp2uxMD9iZlI0 fiKeMYzmt3mrsU7jQyG2DQ heKL4wST0iXGTzaC0falja XHBnYnJkcmhlYWRccGdicm BkSy7sgWacWFE5MZenI5gl tV8zHiV9SHquO6fkwY0nKR x3DOoyzVL4FOMydN9dXO0a yhjyq9ybTDitSPwdHSBvjt X7ezM3BKLdsGZjJ9OagY5y RVMoIG8epdtao0iqWTE1QZ wkEFAbAOX3NtOeRMVaw2Rb bzx8LgGkn4FyvEDnXYxdT1 3lc668OUQtqaZbE2qljCGa ixevfPNdwvpuSFhurjJ9RI JbgrIis2YhUUEqPNY8SAtf VSahrCIgJBVyxCydq9luR9 RscGFyXHBsYWluXGYxXGZz MjBcbGFuZzEwMzNcaGljaF pkTPksYiNrDQNpVGodH4pb MpAaT0LnGLAjFiJidQPuG3 ggVGhpcyByZXBvcnQgbWF5 EZyuN8j2XIPqfjUmsRs9qy WeOzKnUILeJLD8XFgzwOHa DSIun8QwtdnjjBFsBg4dkB NiONMetT7fGDCgWNJfSNna EA5boSh4IJRMrFPhvKGyBb FDOTNiHC69lqHpKFMGtcix v6H0BYhrAIOgm7BbrVXuY8 trl5AeBERsn45kJA3tr8I8 d1naHBB0XE5ao3SmPPWweK TriTTnNNXls2Hexhvaw1Wi EKGngfKbq6ZwHAAdfqOsoX MnQBExgjVcat8npvUaLPYi DZJmX0QcvbgdlVzlhzCyOB Oref9jlkXdJZB8RHFUWBXk FRDgp2YnhB5caJSXBNP6nR Zlwx7wryMVpVPqXDRpze02 DDGtKA9fC6pgDAHlOUYlfv MhgJFyv0ZqDIEmbBA4mGYv VT9YRhUDk21uXYMaUXVTtn YmAPDyhZgltTO6fwQ4bJ8y IChGREEpLlx+IFRoZSBGRE TgQQ3kgcQht2XproUmfVtf TUFvcOUix4BmqAGos7GqgC hyp7SqhRIpwFTxHT3sSLVa clxwYXIgVVRNQiBMYWJvcm M9b4BoLSXzSSVmDJO0zKij wtb9AXEjwY3wJJLyP7xjpy iwAOgnRAAcg6WouX4ywVQD kNAlp6ChoBZzcNYEpKFjKV 3abdWaLFgPESdNOZM4obIx QICxn6CmSWjlB5whM15eiM cfzRq2hMS5PPV1hB2iDcl+ IFxwYXJccGFyIEFwcHJvcH QhKTFraYcgyjIjQ3MenqYg lN9qnCEkuaTtJN3zSG7vW1 H8kWGoTYKxgqUdv2jrOAxg dmUgYmVlbiByZXZpZXdlZC Qlb2IsBXhbWXZ0WLtxfrTl bmNsdWRpbmcgSCZFLCBTcG EnyPHeRPU8JDiuedHorwHg NO3lpD4gyLifbG9onTXphT G1takpYIBpRCPbyKtcJNGu DT7awJIbWYFroyIVsFyjrX LswK6uC7RlLNEfEWOans7z JLKizF1oAGdsc3EdozvoFT YqWQZjHXHjuqXynw9wFMWp fMWTOU9CPWtfmJVjb6Jdoa SrV3kDUYA0RRDfTbGiAekh CRScnTQzeOMjTUJsdb73DZ FcxT5hwAehUAXqjD2paE4m qAkcuR3kUxCaMgXaJWktTJ 3iRBOtT1luzGYrWRQfRATp X0nnOfFfwO6xlBxlJEswUj WoOcOvVTvzIPE4bS== Embedded Images (test code = 0447396848) [facility] - This is a pre-surgical type and screen. ONCE [id number] 17:52:02 Test Item Value Reference Range Interpretation Comments ABO & RH (test AB POSITIVE Performed at [facility] code = 20) [facility] [address] [facility] [address]Azls Free: [phone] A No. [id number] IAT (test code = Negative Performed a t [facility] 1185) [facility] [address] [facility] [address]Xhjs Free: [phone] A No. [id number] [facility]2022-[facility]-14 23:13:17 Test Item Value Reference Range Interpretation Comments PALB (test code = 57131-3) 20.2 mg/dL 18.0-45.0 Lab Interpretation (test code = Normal 53871-3) [facility]AT[facility] PANEL (12949) (ALB,T.PRO,BILI T,BU/BC,ALT,AST,ALK PHOS)2022-02-04 23:05:58 Test Item Value Reference Range Interpretation Comments TOTAL BILI (test code = 1980681513) 0.4 mg/dL 0.1-1.1 BILI UNCON (test code = 9434852341) 0.2 mg/dL 0.1-1.1 BILI CONJ (test code = 6119662998) 0.0 mg/dL 0.0-0.3 T PROTEIN (test code = 5424557950) 7.7 g/dL 6.3-8.2 ALBUMIN (test code = 5924559188) 3.4 g/dL 3.5-5.0 L ALK PHOS (test code = 4496499410) 65 U/L 34-122 ALTv (test code = 1742-6) 11 U/L 5-50 AST(SGOT) (test code = 0831030333) 23 U/L 13-40 Lab Interpretation (test code = Abnormal 51496-5) [facility] [id number] 03:38:00 Test Item Value Reference Range Interpretation Comments AB HEPATITIS A IGM NEGATIVE (test code = HAVMAB) AG HEPATITIS B NEGATIVE SCREEN NEGATIVE SURFACE (test code = HBSAG) AB HEPATITIS B CORE NEGATIVE IGM (test code = HBCMAB) AB HEPATITIS C (test <0.1 RATIO <0.8 S/C RAT ION 0.0 - code = HCVAB) 0.9 NEGATIVE <0.8INDETERMINA TE 0.8 - 0.9POSITI VE >0.9 [id number] 16:06:00 Test Item Value Reference Range Interpretation Comments SURG (test code = SURG) RUN DATE: 10/07/20 [facility] PAGE 1 RUN TIME: 1607 Specimen Inquiry RUN USER: INTERFACE PATIENT: FIONA SANCHES JR LOC: [place] U #: [id number] AGE/SX: 35/M ROOM: RoseYaniraNADYA RE10/06/20REG DR: Sreekanth Garcia MD : 84 BED: 3 DIS: STATUS: ADM Arcadio TLOC: SPEC #: [id number] RECD: 10/06/20 STATUS: ELZA CHURCHILL #: [id number] MIRIAM: 10/06/[address]: Sreekanth Garcia MD ENTERED: 10/06/20 SP TYPE: SURG OTHR DR: DOES_NOT KNOW No Primary or Family Physician Juan Mcbride MD, Jignesh P MDORDERED: SURG PATH LVL 4 COPIES TO: DOES_NOT KNOW No Primary [place] [address] [address] [email or web address] [address] [place] [address] Arnulfo Cormier MD [address] [address] HISTOLOGY: TISSUE ID BLK PCS KANWAL LEV PROCEDURE DISPOSITION ____ ___ ___ ___ ESOPHAGUS, NOS A 1 2 PROCEDURES: SURG PATH LVL 4 (10/06/20) TISSUES: A. ESOPHAGUS, NOS - ESOPHAGUS BIOPSY CLINICAL HISTORY ESOPHAGEAL FOOD BOLUS, STRICTURE V DYSMOTILITY CONTINUED ON NEXT PAGE RUN DATE: 10/07/20 [facility] PAGE 2 RUN TIME: 1607 Specimen Inquiry RUN USER: INTERFACE SPEC #: [id number]:[id number] PATIENT: FIONA SANCHES JR #[id number] (Continued) CPT CODES CPT CODE(S): 72142 , , , , , , FINAL DIAGNOSIS Esophagus, biopsy: ACUTE ESOPHAGITIS WITH CANDIDIASIS NEGATIVE FOR INTESTINAL METAPLASIA, DYSPLASIA, OR MALIGNANCY GROSS DESCRIPTION Esophagus biopsy. Received in formalin are multiple minute fragments of suarez soft tissue, 0.1 - 0.3 cm. The specimen is filtered in a teabag and entirely submitted as A. ba/nr Grossing performed at [facility] Pathology, [address], [address], [place] [address]. Bar Tender: Abner Steward M.D. MICROSCOPIC DESCRIPTION Esophagus biopsy. [...] indicativ e of the presence code = YDFFC97GS) ofSARS-CoV -2 RNA, clinical correlation wit h [...] indicativ e of the presence code = FXZYL29PT) ofSARS-CoV -2 RNA, clinical correlation wit h [...] for the identification of SARS-CoV-2 RNA usingthe [employer] M2000 Sy stem under the FDA Emergen cy UseAuthorizatio n. The testing is perf ormed by personneltraine d in the procedures for the [employer] molecular diagnostic SARS-CoV-2 assa y in vitro. CBC W/AUTO [id number] 13:10:00 Test Item Value Reference Range Interpretation [...] NT WITH AUTO DIFFERENTI AL. CBC W/AUTO [id number] 13:10:00 Test Item Value Reference Range Interpretation [...] CONSISTA NT WITH AUTO DIFFERENTI AL. RBC [id number] 13:10:00 Test Item Value Reference Range Interpretation Comments PLATELET ESTIMATE DECREASED THOUSAND ADEQUATE PLAT ELET COUNT (test code = REVIEWED AND PLTEST) VERIFIED. PLATELET MORPHOLOGY NORMAL (test code = PLTMORPH) CBC W/AUTO [id number] 13:10:00 Test Item Value Reference Range Interpretation [...] NT WITH AUTO DIFFERENTI AL. COMPREHENSIVE METABOLIC [id number] 11:48:00 Test Item Value Reference Range Interpretation [...] TOTAL (test code = ALKP) CBC W/AUTO [id number] 11:33:00 Test Item Value Reference Range Interpretation [...] REQUIRED (test code = DIFF/SCN CRITERIA MDIFF) [id number] 04:59:00 Test Item Value Reference Range Interpretation Comments AMMONIA (test code = AMM) 56 mcMOL/L 11-32 H LACTIC [id number] 04:59:00 Test Item Value Reference Range Interpretation Comments LACTIC ACID (test code = LACT) 0.7 mmol/L 0.4-2.0 N GLUCOSE BEDSIDE [id number] 20:35:00 Test Item Value Reference Range Interpretation Comments GLUCOSE BEDSIDE TESTING (test code 109 mg/dL 70-110 N = GLUBED) GLUCOSE BEDSIDE [id number] 17:10:00 Test Item Value Reference Range Interpretation Comments GLUCOSE BEDSIDE TESTING (test code 105 mg/dL 70-110 N = GLUBED) - US ABDOMEN [id number] 16:39:00 [facility] 1985 Sex: M Name:FIONA SANCHES JR [facility] : 1985 Age/S: 35 / M [address] Unit #: [id number] Loc: [place] [address] Phys: Matilda Kirk PA-C Acct: [id number] Dis Date: Status: ADM IN PHONE #: [phone] Exam Date: 10/06/2020 2608 FAX #: Reason: elevated lfts, evaluate for cirrhosis EXAMS: CPT: [id number] ABDOMEN [facility] [address] RIGHT UPPER QUADRANT ULTRASOUND. CLINICAL HISTORY: Elevated [...] the pancreas is limited due to overlying bowelgas. IMPRESSION: 1. Trace ascites is noted in the upper abdomen. 2. Mild right renal pelviectasis. 3. Mild distention of the gallbladder. No gallstones are identified. Location Code: R16 at 1639 Reported and signed by: Eh Barajas M.D. PAGE 1 Signed Report (CONTINUED) Name: FIONA SANCHES JR [place] : 1985 Age/S: 35 / M [address] Unit #: [id number] Loc: [place] [address] Phys: Matilda Kirk PA-C Acct: [id number] Dis Date: Status: ADM IN PHONE #: [phone] Exam Date: 10/06/2020 1515 FAX #: Reason: elevated lfts, evaluate for cirrhosis EXAMS: CPT: [id number] US ABDOMEN LTD [address] (Continued) CC: Sreekanth Garcia MD; Matilda Kirk Technologist: Rae Owenuttip Date/Time: 10/06/2020 (163) [id number] Signed Report Name: FIONA SANCHES JR [place] : 1985 Age/S: 35 / M [address] Unit #: [id number] Loc: [place] [address] Phys: Matilda Kirk PA-C Acct: [id number] Dis Date:Status: ADM IN PHONE #: [phone] Exam Date: 10/06/2020 1511 FAX #: Reason: elevated lfts, evaluate for cirrhosis EXAMS: CPT: [id number] US ABDOMEN LTD [address] (Continued) Orig Print D/T: S: 10/06/2020 (1643) Probe: PAGE 3 Signed ReportUA RFLX MICR CULT IF [id number] 15:23:00 Test Item Value Reference Range Interpretation [...] 92 mg/dL 70-110 N GLUBED) GLUCOSE BEDSIDE [id number] 13:37:00 Test Item Value Reference Range Interpretation Comments GLUCOSE BEDSIDE TESTING (test code = 58 mg/dL 70-110 L GLUBED) CREATINE KINASE (CK)2020-10-06 11:26:00 Test Item Value Reference Range Interpretation Comments CREATINE KINASE (CK) (test code = 287 Unit/L 26-192 H CK) [id number] 11:26:00 Test Item Value Reference Range Interpretation Comments AMYLASE (test code = JOSE CARLOS) 120 Unit/L 25-115 H [id number] 11:26:00 Test Item Value Reference Range Interpretation Comments LIPASE (test code = LIP) 112 Unit/L 114-286 L CBC W/AUTO [id number] 09:58:00 Test Item Value Reference Range Interpretation [...] DIFF/SCN CRITERIA (test code = MDIFF) WBC [id number] 09:58:00 Test Item Value Reference Range Interpretation [...] NORMAL (test code = PLTMORPH) CBC W/AUTO [id number] 09:55:00 Test Item Value Reference Range Interpretation [...] DIFF/SCN CRITERIA (test code = MDIFF) WBC [id number] 09:55:00 Test Item Value Reference Range Interpretation Comments SEGMENTED NEUTROPHILS (test code = SEG) % 40-75 LYMPHOCYTE (test code = LYMPH) % 12.6-43.5 CBC W/AUTO [id number] 09:55:00 Test Item Value Reference Range Interpretation [...] DIFF/SCN CRITERIA (test code = MDIFF) WBC [id number] 09:55:00 Test Item Value Reference Range Interpretation Comments SEGMENTED NEUTROPHILS (test code = SEG) % 40-75 LYMPHOCYTE (test code = LYMPH) % 12.6-43.5 COMPREHENSIVE METABOLIC [id number] 09:14:00 Test Item Value Reference Range Interpretation [...] TOTAL (test code = ALKP) CBC W/AUTO [id number] 09:02:00 Test Item Value Reference Range Interpretation [...] CRITERIA (test code = MDIFF) GLUCOSE BEDSIDE [id number] 06:41:00 Test Item Value Reference Range Interpretation Comments GLUCOSE BEDSIDE TESTING (test code = 65 mg/dL 70-110 L GLUBED) COVID 19 INHOUSE [id number] 05:40:00 Test Item Value Reference Range Interpretation Comments COVID 19 INHOUSE AG NEGATIVE Negative Per manu facturer, (test code = negative result s should [id number]) be treated aspr esumptive and, if inconsi [...] co nsistent with COVID-19. - CT CHEST [id number] 03:30:[address] [facility] [facility] 1985 Sex: M Name:FIONA SANCHES JR : 1985 Age/S: 35 / M [address] Unit #: [id number]: [place] [address] Phys: Scott Person MD Acct: [id number] Dis Date: Status: REG ER PHONE #: [phone] Exam Date: 10/06/2020 0242 FAX #: Reason: possible esophageal pneumatosis EXAMS: CPT:[id number] CT CHEST W/CONTRAST 17219 DICTATION LOCATION: H48 HISTORY: Male, 35 years [...] (CONTINUED) Name: FIONA SANCHES JR [facility] : 1985 Age/S: 35 / M [address] Unit #: [id number] Loc: [place] [address] Phys: Scott Person MD Acct: [id number] Dis Date: Status: REG ER PHONE #: [phone] Exam Date: 10/06/2020 0245 FAX#: Reason: possible esophageal pneumatosis EXAMS: CPT: [id number] CT CHEST W/CONTRAST 58997 (Continued) (i.e. scleroderma or dermatomyositis). Infiltrative neoplasm is included differential but I do not identify a distinct mass. 2. No evidence for esophageal pneumatosis or pneumomediastinum. 3. Multi l obar groundglass interstitial pneumonia. Commonly reported imaging features of COVID-19 pneumonia are present. Other processes such as aspiration pneumonia, influenza pneumonia and organizing pneumonia, as seen with drug toxicity and connective tissue disease, can cause a similar imaging pattern. El ectronically Signed by Alyx Ma MD on 10/06/2020 at 0330 Reported and signed by: Alyx Stacy MD CC: Technologist:Valentine Momin, RT(R)(CT); CTDI: DLP: Trnscb Date/Time: 10/06/2020 (329) [email or web address] Orig Print D/T: S: 10/06/2020 (033) PAGE 2 Signed Report- CT NECK [id number] 03:11:00 [facility] 1985 Sex: M Name:FIONA SANCHES JR : 1985 Age/S: 35 / M [address] Unit #: [id number]: [place] [address] Phys: Scott Person MD Acct: [id number] Dis Date: Status: REG ER PHONE #: [phone] Exam Date: 10/06/2020 0250 FAX #: Reason: possible esophageal pneumatosis EXAMS: CPT:[id number] CT NECK W/CONTRAST 91556 EXAM: - CT NECK W/CONTRAST LOCATION: H57 INDICATION: 35 years -old Male with possible esophageal pneumatosis COMPARISON: None available at time of interpretation. TECHNIQUE: Contrast enhanced CT of the neck with sagittal and coronal reformats. This exam was performed according to our departmental dose-optimization program, which includes automated exposure control,adjustment of the mA and/or kV according to [...] Report (CONTINUED) Name: FIONA SANCHES JR : 1985Age/S: 35 / M [address] Unit #: [id number] Loc: [place] [address] Phys: Scott Person MD Acct: [id number] Dis Date: Status: REG ER PHONE #: [phone] Exam Date: 10/06/2020 0250 FAX #: Reason: possible esophageal pneumatosis EXAMS: CPT: [id number] CT NECK W/CONTRAST 30087 (Continued) CC: Technologist:Valentine Momin, RT(R)(CT); CTDI: DLP: Trnscb Date/Time: 10/06/2020 (310) [email or web address] Orig Print D/T: S: 10/06/2020 (313) PAGE 2 Signed ReportBASIC METABOLIC [id number] 02:14:00 Test Item Value Reference Range Interpretation [...]
[2022-07-07] MEDS ORDERED: NA CHLORIDE 0.9% 0 ML ONE (16:17)
[2022-07-07] MEDS ORDERED: NA CHLORIDE 0.9% 500 ML ONE ×2 (16:43→16:46)
--- NOTE | 2022-07-07 17:33 | ER ---
Nurse's Notes [facility] Name: Tahir Ag Jr Age: 37 yrs Sex: Male : 1985 Arrival Date: 07/07/2022 Time: 11:37 Bed 13 Private MD: Diagnosis: Problem with feeding tube Presentation: 07/07 13:06 Chief complaint: Patient states: Peg tube leaking for the past several months. States tp1 peg tube is causing 10/10 ABD pain in the right upper quadrant. Reports ABD is tender to palpation. Reports nausea and vomiting. Denies diarrhea. Coronavirus screen: Vaccine status: Patient reports receiving the 2nd dose of the covid vaccine. Ebola Screen: Patient negative for fever greater than or equal to 101.5 degrees Fahrenheit, and additional compatible Ebola Virus Disease symptoms Patient denies exposure to infectious person. Patient denies travel to an Ebola-affected area in the 21 days before illness onset. Risk Assessment: Do you want to hurt yourself or someone else? Patient reports no desire to harm self or others. Onset of symptoms is unknown. 13:06 Method Of Arrival: Ambulatory tp1 13:10 Initial Sepsis Screen: Does the patient meet any 2 criteria? No. Patient's initial tp1 sepsis screen is negative. Does the patient have a suspected source of infection? No. Patient's initial sepsis screen is negative. 13:10 Acuity: MARTINA 3 tp1 Triage Assessment: 13:08 General: Appears in no apparent distress. slender, unkempt, malnourished, Behavior is tp1 calm, cooperative. Pain: Complains of pain in abdomen Pain radiates to back Pain currently is 10 out of 10 on a pain scale. Quality of pain is described as crampy. Neuro: Level of Consciousness is awake, alert, obeys commands, Oriented to person, place, time, situation. Cardiovascular: Patient's skin is warm and dry. 13:20 GI: Abdomen is flat, non-distended, PEG tube in place, Site reddened. Site with tp1 drainage. Abd is soft Abdomen is tender to palpation. Historical: - Allergies: 13:08 No Known Allergies; tp1 - PMHx: 13:08 achalasia; Bipolar disorder; Diabetes - NIDDM; Hernia; Hypertension; Schizophrenia; tp1 Seizure; - PSHx: 13:08 gastrostomy tube; tp1 - Immunization history:: Client reports receiving the 2nd dose of the Covid vaccine. - Social history:: Smoking status: Patient reports the use of cigarette tobacco products, smokes one pack cigarettes per day. - Family history:: not pertinent. - Hospitalizations: : No recent hospitalization is reported. - : The history from the nurse's notes was reviewed. Screenin:30 Abuse screen: Denies threats or abuse. Denies injuries from another. Nutritional ko1 screening: peg tube leaking. Tuberculosis screening: No symptoms or risk factors identified. Fall Risk Assessment: 13:30 General: Appears in no apparent distress. ill, unkempt, emaciated, malnourished, ko1 cachectic, Behavior is appropriate for age, agitated, anxious, Smells of. Pain: Complains of pain in abdomen. Neuro: No deficits noted. Cardiovascular: No deficits noted. Respiratory: No deficits noted. 13:30 GI: Abdomen is PEG tube Site with drainage. Reports lower abdominal pain. : No ko1 deficits noted. EENT: No deficits noted. Derm: No deficits noted. Musculoskeletal: No deficits noted. Vital Signs: 13:10 BP 91 / 62; Pulse 72; Resp 16; Temp 97.5(TE); Pulse Ox 100% on R/A; Weight 35.83 kg; tp1 Height 5 ft. 5 in. (165.10 cm); 13:30 BP 95 / 63; Pulse 74; Resp 18; Temp 98; Pulse Ox 100% ; ko1 17:00 BP 98 / 61; Pulse 78; Resp 16; Pulse Ox 99% ; ko1 13:10 Body Mass Index 13.15 (35.83 kg, 165.10 cm) tp1 Newsoms Coma Score: 13:30 Eye Response: spontaneous(4). Verbal Response: oriented(5). Motor Response: obeys ko1 commands(6). Total: 15. ED Course: 11:37 Patient arrived in ED. rg4 13:08 Arm band placed on. tp1 13:14 Triage completed. tp1 13:30 Patient has correct armband on for positive identification. Bed in low position. Call ko1 light in reach. Side rails up X 1. 13:30 No provider procedures requiring assistance completed. ko1 13:38 Marinas, Elgin, MANAGER MONEY is PHCP. pm1 13:38 Omari Wang MD is Attending Physician. pm1 16:16 Inserted saline lock: 22 gauge in right forearm, using aseptic technique. kc6 16:22 Esperanza Chan, RN is Primary Nurse. ko1 17:41 IV discontinued, intact, bleeding controlled, No redness/swelling at site. Pressure ko1 dressing applied. Administered Medications: 16:35 Drug: NS 0.9% 500 ml Route: IV; Rate: bolus; Site: right forearm; ko1 Outcome: 17:33 Discharge ordered by . rn 17:42 Discharged to home ambulatory. ko1 17:42 Condition: stable 17:42 Discharge instructions given to patient, Instructed on discharge instructions, follow up and referral plans. Demonstrated understanding of instructions, follow-up care, medications. 17:43 Patient left the ED. ko1 Signatures: Omari Wang MD MD rn Marinas, Patrick, NP MANAGER MONEY pm1 Sisi Perez rg4 Lisa Knapp RN RN tp1 Roya Petty kc6 Esperanza Chan, RN RN ko1 Corrections: (The following items were deleted from the chart) 13:20 13:06 Ebola Screen: Patient negative for fever greater than or equal to 101.5 degrees tp1 Fahrenheit, and additional compatible Ebola Virus Disease symptoms Patient denies exposure to infectious person. Patient denies travel to an Ebola-affected area in the 21 days before illness onset. tp1 17:39 16:59 Family history: not pertinent, patti chowdary 17:39 16:59 Hospitalizations: No recent hospitalization is reported. patti chowdary 17:39 16:59 The history from the nurse's notes was reviewed. patti chowdary 17:40 17:36 GI: Abdomen is PEG tube Site with drainage. Reports lower abdominal pain, epi chowdary 17:40 17:36 : No deficits noted. epi chowdary 17:40 17:36 EENT: No deficits noted. epi chowdary 17:40 17:36 Derm: No deficits noted. epi chowdary 17:40 17:36 Musculoskeletal: No deficits noted. ko1 ko1
--- NOTE | 2022-07-07 17:34 | EDPHYS ---
Physician Documentation [facility] Name: Tahir Ag Jr Age: 37 yrs Sex: Male : 1985 Arrival Date: 07/07/2022 Time: 11:37 Bed 13 Private MD: ED Physician Omari Wang HPI: 07/07 16:54 This 37 yrs old Black Male presents to ER via Ambulatory with complaints of Problem rn With Feeding Tube. 16:54 The patient presents with abdominal pain around feeding tube. Onset: The rn symptoms/episode began/occurred at an unknown time. 16:59 The symptoms do not radiate. Associated signs and symptoms: none. Pertinent positives: rn nausea and vomiting. The symptoms are described as achy. Modifying factors: The symptoms are alleviated by nothing, the symptoms are aggravated by touching the area. Severity of pain: At its worst the pain was mild in the emergency department the pain is unchanged. The patient has experienced similar episodes in the past. Pt reports problem with feeding tube, leaking around it, assoc with mild pain around it. States has been leaking "for a while". No fever. Reports nausea and vomiting with solids still but not water. . Historical: - Allergies: 13:08 No Known Allergies; tp1 - PMHx: 13:08 achalasia; Bipolar disorder; Diabetes - NIDDM; Hernia; Hypertension; Schizophrenia; tp1 Seizure; - PSHx: 13:08 gastrostomy tube; tp1 - Immunization history:: Client reports receiving the 2nd dose of the Covid vaccine. - Social history:: Smoking status: Patient reports the use of cigarette tobacco products, smokes one pack cigarettes per day. - Family history:: not pertinent. - Hospitalizations: : No recent hospitalization is reported. - : The history from the nurse's notes was reviewed. ROS: 16:59 Constitutional: Negative for fever, chills, and weight loss, Eyes: Negative for injury, rn pain, redness, and discharge, Neck: Negative for injury, pain, and swelling, Cardiovascular: Negative for chest pain, palpitations, and edema, Respiratory: Negative for shortness of breath, cough, wheezing, and pleuritic chest pain, Abdomen/GI: + abd pain and leakage around feeding tube MS/Extremity: Negative for injury and deformity, Skin: Negative for injury, rash, and discoloration, Neuro: Negative for headache, weakness, numbness, tingling, and seizure. Exam: 16:59 Constitutional: Thin male, ambulatory, no acute distress Head/Face: Normocephalic, rn atraumatic. ENT: dry MM Cardiovascular: Regular rate and rhythm. No pulse deficits. Respiratory: No increased work of breathing, no retractions or nasal flaring. Abdomen/GI: Soft, non-tender Skin: Warm, dry MS/ Extremity: Pulses equal, no cyanosis. Neuro: Awake and alert, GCS 15 Vital Signs: 13:10 BP 91 / 62; Pulse 72; Resp 16; Temp 97.5(TE); Pulse Ox 100% on R/A; Weight 35.83 kg; tp1 Height 5 ft. 5 in. (165.10 cm); 13:30 BP 95 / 63; Pulse 74; Resp 18; Temp 98; Pulse Ox 100% ; ko1 17:00 BP 98 / 61; Pulse 78; Resp 16; Pulse Ox 99% ; ko1 13:10 Body Mass Index 13.15 (35.83 kg, 165.10 cm) tp1 Claudia Coma Score: 13:30 Eye Response: spontaneous(4). Verbal Response: oriented(5). Motor Response: obeys ko1 commands(6). Total: 15. MDM: 15:52 Patient medically screened. rn 17:30 Differential diagnosis: non-specific abd pain, pancreatitis, problem with feeding tube, rn dehydration, anorexia. Data reviewed: vital signs, nurses notes, lab test result(s), radiologic studies, CT scan, and as a result, I will discharge patient. Counseling: I had a detailed discussion with the patient and/or guardian regarding: the historical points, exam findings, and any diagnostic results supporting the discharge/admit diagnosis, lab results, radiology results, the need for outpatient follow up, to return to the emergency department if symptoms worsen or persist or if there are any questions or concerns that arise at home. Response to treatment: the patient's symptoms have mildly improved after treatment. Refusal of service: The patient/guardian displays adequate decision making capability and despite a detailed discussion of alternatives, benefits, risks, and consequences refuses: CT Scan. ED course: Pt now refusing ct scan of abdomen, states wants to leave, understands that he has not completed the evaluation, given return precautions and understood.. 07/07 13:20 Order name: IV Saline Lock; Complete Time: 16:17 tp1 Administered Medications: 16:35 Drug: NS 0.9% 500 ml Route: IV; Rate: bolus; Site: right forearm; epi Disposition Summary: 07/07/22 17:33 Discharge Ordered Location: Home rn Problem: new rn Symptoms: have improved rn Condition: Stable rn Diagnosis - Problem with feeding tube rn Followup: rn - With: Private Physician - When: As needed - Reason: Recheck today's complaints, Re-evaluation by your physician Discharge Instructions: - Discharge Summary Sheet rn - How to Care for a Feeding Tube rn Forms: - Medication Reconciliation Form rn - Thank You Letter rn - Antibiotic policy intern - Prescription Opioid Use rn Signatures: Dispatcher [employer] EDMS Omari Wang MD MD rn Parker, Tiffany, RN RN tp1 Esperanza Chan RN RN ko1 Corrections: (The following items were deleted from the chart) 17:00 16:59 Constitutional: Negative for fever, chills, and weight loss, Eyes: Negative for rn injury, pain, redness, and discharge, Neck: Negative for injury, pain, and swelling, Cardiovascular: Negative for chest pain, palpitations, and edema, Respiratory: Negative for shortness of breath, cough, wheezing, and pleuritic chest pain, Abdomen/GI: + abd pain and leakage around feeding tube MS/Extremity: Negative for injury and deformity, Skin: Negative for injury, rash, and discoloration, Neuro: Negative for headache, weakness, numbness, tingling, and seizure, rn 17:01 16:59 Constitutional: This is a well developed, well nourished patient who is awake, rn alert, and in no acute distress. rn 17:39 16:59 Family history: not pertinent, patti chowdary 17:39 16:59 Hospitalizations: No recent hospitalization is reported. patti chowdary 17:39 16:59 The history from the nurse's notes was reviewed. patti chowdary
[2022-07-08 07:17] VITALS: TEMP 98
[2022-07-08 07:19] VITALS: BP 98/61; O2SAT 99
== END 2022-07-07 17:43 | disposition home or self-care (01) ==
LOC: ER 11:35
DX: K94.29 Other complications of gastrostomy (principal); F20.9 Schizophrenia, unspecified; F17.210 Nicotine dependence, cigarettes, uncomplicated
CPT/HCPCS: 99283; J7040 ×2

== ENCOUNTER 2022-08-11 12:51 | Emergency (ER) | payer OTHER ==
--- OUTSIDE RECORDS SUMMARY | 2022-08-11 13:02 | XMS REPORT | Continuity of Care Document ---
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 0.9% First dose Bran ch (NS) 100 mL on [place] MINI-BAG 07/11/22 at 2245, Last dose on Tue07/16/22 at 1445, Administer over 4 Hours, 100 mL
Reas on for Anti-Infec tive: Surgical Prophylaxi s
Surgi erendira Prophylaxi s: Abdominal< br>Duratio n of therapy: within 24 hours of surgery D5W 0.45% 2021- No 1000mL at 75 Univ ers NaCl 07-11 mL/hr, ity of (1/2NS) IV 23:00: 12:36 1,000 mL, [place] infusion 00 :19 IV Medical 1,000 mL Infusion, Branch CONTINUOUS , Starting on 07/11/22 at 1800, Until 07/12/22 at 0736, Routine lactated 2021- No 1000mL at 50 Unive rs ringers IV 07-11 mL/hr, ity of infusion 21:45: 12:36 1,000 mL, [place] 1,000 mL 00 :19 IV Medical Infusion, Branch CONTINUOUS , Starting on Tue07/11/22 at 1645, Until 07/12/22 at 0736, Routine, PACU bupivacaine 2021- No PRN, Unive rs (preserv 07-11 Starting ity of free) 20:58: 22:05 on [facility] (SENSORCAIN 00 :02 07/11/22 at Or dical E MPF) 0.25 1558, Branch % (2.5 Intra-op mg/mL) 30 mL, bupivacaine liposome (PF) (EXPAREL (PF)) 1.3 % (13.3 mg/mL) 266 mg, NaCl 0.9% (NS) 100 mL methocarbam Yes 1000mg 1,000 mg, Univers oL 9-18 Intravenou ity of (ROBAXIN) 19:00: s, Q8H, [place] injection 00 First dose Medi erendira 1,000 mg on [facility] 07/11/22 at 1400, Until Discontinu ed, Routine methocarbam 2021- No 1000mg 1,000 mg, Univers oL 07-11 Intravenou ity of (ROBAXIN) 19:00: 19:30 s, Q8H, [place] injection 00 :13 First dose Medi erendira 1,000 mg on [facility] 07/11/22 at 1400, Until Discontinu ed, Routine acetaminoph 2021- No 1000mg 1,000 mg, Univers en ADULT 07-11 IV ity of (OFIRMEV) 19:00: 11:05 Infusion, [place] injection 00 :00 at 400 Medical 1,000 mg mL/hr Branch Administer over 15 Minutes, Q8H, 3 doses, First dose on [place] 07/11/22 at 1400, Last dose on [facility] 07/12/22 at 0600, Routine
Indicatio n: Perioperat maria del rosario Patient sodium 2021- No PRN, Univers chloride 07-11 Starting ity of 0.9 % 19:00: 22:05 on [facility] irrigation 00 :02 07/11/22 at Med ical solution 1400, Branch Until [place] 07/11/22 at 1705, Intra-op diatrizoate 2021- No [id number] 120mL 120 mL, Univers mayi-diatriz 07-11 Oral, ity of oat sod 00:00: 23:54 ONCE, 1 [place] (GASTROGRAF 00 :00 dose, On Medi erendira IN) 66-10 % [facility] oral 07/10/22 at solution 1900, 120 mL Routine KCL Yes 40meq 40 mEq, Univers (KLOR-CON 07-10 Oral, ity of M20) tablet 14:00: DAILY, [place] 40 mEq 00 First dose Medical on [facility] 07/10/22 at 0900, Until Discontinu ed, Routine enoxaparin Yes 30mg 30 mg, Unive rs (LOVENOX) 07-10 Subcutaneo ity of injection 14:00: us, DAILY, [place] 30 mg 00 First dose Medical on [facility] Branch 07/10/22 at 0900, Until Discontinu ed, Routine enoxaparin Yes 30mg 30 mg, Unive rs (LOVENOX) 07-10 Subcutaneo ity of injection 14:00: us, DAILY, [place] 30 mg 00 First dose Medical on Sat Branch 07/10/22 at 0900, Until Discontinu ed, Routine KCL No 40meq 40 mEq, Univers (KLOR-CON 07-10 Oral, ity of M20) tablet 14:00: 22:14 DAILY, [place] 40 mEq 00 :56 First dose Medical on [facility] Branch 07/10/22 at 0900, Until Discontinu ed, Routine potassium No 10meq 10 mEq, IV Univers chloride in 07-10 Piggyback, i ty of water 10 13:30: 16:00 Q1H, 4 [place] mEq/100 mL 00 :00 doses, Medical RTU 10 mEq First dose Bra nch on [facility] 07/10/22 at 0830, Last dose on [facility] 07/10/22 at 1100, Administer over 60 Minutes, 100 mL pantoprazol Yes 40mg 40 mg, Univ ers e 07-10 Slow IV ity of (PROTONIX) 10:15: Push, [place] injection 00 Q24H, Medical 40 mg First dose Branch on [facility] 07/10/22 at 0515, Until Discontinu ed pantoprazol Yes 40mg 40 mg, Univ ers e 07-10 Slow IV ity of (PROTONIX) 10:15: Push, [place] injection 00 Q24H, Medical 40 mg First dose Branch on [facility] 07/10/22 at 0515, Until Discontinu ed Vancomycin 2021- Yes 750mg 750 mg, IV Univers 750 mg in 07-10 Piggyback, ity of NaCl 0.9% 10:00: 09:59 Q24H ABX, [place] (NS) 250 mL 00 :00 10 doses, Med ical VIAL-gas adjuster dose Bran ch on 07/10/22 at 0500, Last dose on 07/19/22 at 0500, Administer over 60 Minutes, 250 mL
Reas on for Anti-Infec tive: Empiric Therapy for Suspected Infection< br>Empiric Therapy Site: Urine
D uration of therapy: 5 days Vancomycin 2021- No 750mg 750 mg, IV Univers 750 mg in 07-10 Piggyback, ity of NaCl 0.9% 10:00: 00:20 Q24H ABX, [place] (NS) 250 mL 00 :26 10 doses, Med ical VIAL-gas adjuster dose Bran ch on Tue07/10/22 at 0500, Last dose on Tue07/19/22 at 0500, Administer over 60 Minutes, 250 mL
Reas on for Anti-Infec tive: Empiric Therapy for Suspected Infection< br>Empiric Therapy Site: Urine
D uration of therapy: 5 days morpHINE (2 Yes 1mg 1 mg, Slow Univers mg/mL) 07-10 IV Push, ity of injection 1 05:21: Q6HPRN, [place] mg 44 Starting Medical on [facility] 07/10/22 at 0021, Until Discontinu ed, Routine, Chest pain, Pain (scale 7-10) morpHINE (2 2021- No 1mg 1 mg, Slow Univers mg/mL) 07-10 IV Push, ity of injection 1 05:21: 00:53 Q6HPRN, [place] mg 44 :24 Starting Medical on [facility] 07/10/22 at 0021, Until 07/13/22 at 1953, Routine, Chest pain, Pain (scale 7-10) valproic Yes Take by [facility] s acid, as 07-10 mouth. Pt ity of sodium 03:56: unaware of [place] salt, 08 dosage Medical (DEPAKENE Branch ORAL) paliperidon Yes by [facility] e palmitate 07-10 Intramuscu it y of (INVEGA 03:56: lar route [place] TRINZA IM) 08 once every Med ical month. Branch Takes monthly on the D5W 0.9% 2021- No IV Univers NaCl (NS) 1 07-10 Infusion, it y of L + KCL 40 03:15: 16:02 at 125 [place] mEq 00 :53 mL/hr, Medical CONTINUOUS Branch , Starting on Tue07/09/22 at 2215, Until Tue07/11/22 at 1102, Routine acetaminoph 2021- No 10mg/kg 352 mg Univers en 07-10 (rounded ity of (TYLENOL) 02:00: 01:25 from 358 [place] 160 mg/5 mL 00 :00 mg = 10 Medic al oral liquid mg/kg Branch 352 mg ?35.8 kg), Enteral, ONCE, 1 dose, On Tue07/09/22 at 2100, Routine potassium No 10meq 10 mEq, IV Univers chloride in 07-10 Piggyback, i ty of water 10 02:00: 04:34 Q1H, 3 [place] mEq/100 mL 00 :00 doses, Medical RTU 10 mEq First dose Bra nc on Tue07/09/22 at 2100, Last dose on Tue07/09/22 at 2300, Administer over 60 Minutes, 100 mL cephALEXin 2021- No 500mg 500 mg, Un buck (KEFLEX) 07-10 Oral, ity of capsule 500 01:30: 01:25 ONCE, 1 [place] mg 00 :00 dose, On Medical Fri Branch 07/09/22 at 2030, ROBERTO
Re ason for Anti-Infec tive: Empiric Therapy for Suspected Infection< br>Empiric Therapy Site: Skin / Soft tissue
Duration of therapy: 72 hours NaCl 0.9% 2021- No 1000mL at 999 Uni vers (NS) bolus 07-10 mL/hr, ity of infusion 00:45: 17:04 1,000 mL, [place] 1,000 mL 00 :00 IV Medical Infusion, Branch ONCE, 1 dose, On Tue07/09/22 at 1945, ROBERTO ondansetron 2021- No 4mg 4 mg, Slow Univers (ZOFRAN 07-10 IV Push, ity of (PF)) 00:00: 00:08 ONCE, 1 [place] injection 4 00 :00 dose, On Medi erendira mg Fri Branch 07/09/22 at 1900, ROBERTO potassium No 10meq 10 mEq, IV Univers chloride in 05-27 08-04 Piggyback, i ty of water 10 03:00: 03:05 ONCE, 1 [place] mEq/100 mL 00 :00 dose, On Medic al RTU 10 mEq Tue05/26/22 [facility] at 2200, Administer over 60 Minutes, 100 [...] anch mg at 2015, Routine ondansetron Yes [id number] 8mg Take 1 Univers 8 mg 05-26 tablet by ity of disintegrat 00:00: mouth [place] ing tablet 00 every 8 Medica l (eight) Branch hours as needed for Nausea and Vomiting (N/V). ondansetron 2021-0 Yes [id number] 8mg Take 1 Univers 8 mg 8-03 tablet by ity of disintegrat 00:00: mouth [place] ing tablet 00 every 8 Medica l (eight) Branch hours as needed for Nausea and Vomiting (N/V). ondansetron 2021-0 Yes [id number] 8mg Take 1 Univers 8 mg 8-03 tablet by ity of disintegrat 00:00: mouth [place] ing tablet 00 every 8 Medica l (eight) Branch hours as needed for Nausea and Vomiting (N/V). ondansetron 2021-0 Yes [id number] 8mg Take 1 Univers 8 mg 8-03 tablet by ity of disintegrat 00:00: mouth [place] ing tablet 00 every 8 Medica l (eight) Branch hours as needed for Nausea and Vomiting (N/V). ondansetron 2021-0 Yes [id number] 8mg Take 1 Univers 8 mg 8-03 tablet by ity of disintegrat 00:00: mouth [place] ing tablet 00 every 8 Medica l (eight) Branch hours as needed for Nausea and Vomiting (N/V). ondansetron 2021-0 Yes [id number] 8mg Take 1 Univers 8 mg 8-03 tablet by ity of disintegrat 00:00: mouth [place] ing tablet 00 every 8 Medica l (eight) Branch hours as needed for Nausea and Vomiting (N/V). ondansetron 2021-0 Yes [id number] 8mg Take 1 Univers 8 mg 8-03 tablet by ity of disintegrat 00:00: mouth [place] ing tablet 00 every 8 Medica l (eight) Branch hours as needed for Nausea and Vomiting (N/V). ondansetron 2021-0 Yes [id number] 8mg Take 1 Univers 8 mg 8-03 tablet by ity of disintegrat 00:00: mouth [place] ing tablet 00 every 8 Medica l (eight) Branch hours as needed for Nausea and Vomiting (N/V). pantoprazol 2021-0 2021- Yes [id number] 40mg Take 20 mL Univers e 2 mg/mL 05-26- through ity of oral 00:00: 04:59 enteral [place] suspension 00 :00 tube in Medica l the Branch morning for 30 days. pantoprazol 2021- Yes [id number] 40mg Take 20 mL Univers e 2 mg/mL 05-26 through ity of oral 00:00: 04:59 enteral [place] suspension 00 :00 tube in Medica l the [place] morning for 30 days. valproic Yes Take [...] 1000mL at 999 Uni vers (NS) bolus 7-12 07-12 mL/hr, ity of infusion 05:45: 04:53 [...] 1500, Until Discontinu ed, Routine morpHINE (2 2021-0 2021- No 2mg 2 [...] 2203, Routine, Pain (scale 7-10) KCL 20 2021-2021- [...] No 2mg 2 mg, Slow Univers mg/mL) 706 07-07 IV Push, ity of injection 2 02:17: 02:16 Q4HPRN, [place] mg 34 :34 Starting Medical on Tue Branch 04/27/22 at 2117, Until Tue04/28/22 at 2116, Routine, Pain (scale 7-10) KCL 20 2021-2021- No 40meq 40 mEq, Univer s mEq/15 mL 04-27 07-05 Enteral, ity o f solution 40 20:00: 20:16 ONCE, 1 [place] mEq 00 :00 dose, On Medical Tue04/27/22 Branch at 1500, Routine D5W 0.45% 2021- Yes IV Univers NaCl 7-05 Infusion, ity of (1/2NS) 1 L 19:45: at 75 [place] + KCL 20 00 mL/hr, Medical mEq CONTINUOUS Branch , Starting on Tue04/27/22 at 1445, Until Discontinu ed, Routine D5W 0.45% 2021-2021- No IV Univers NaCl 7-05 07-10 Infusion, ity of (1/2NS) 1 L 19:45: 12:56 at 75 [place] + KCL 20 00 :51 mL/hr, Medical mEq CONTINUOUS Branch , Starting on Tue04/27/22 at 1445, Until Tue05/02/22 at 0756, Routine KCL 2021-2021- No 40meq 40 mEq, Univers (POTASSIUM 04-27 [...] Max Rate = 10 mEq/hr
KCL 20 2021-2021- No 40meq 40 mEq, Univer s mEq/15 mL 04-27 07-05 Enteral, ity o f solution 40 15:30: 15:16 ONCE, 1 [place] mEq 00 :00 dose, On Medical Tue04/27/22 Branch at 1030, Routine lactated 2021-0 2021- No 1000mL at 999 [place] [facility] [...] ed pantoprazol 2021- No 40mg 40 mg, [facility] vers e 04-27 07-08 Slow IV ity of (PROTONIX) 04:15: 19:54 Push, [place] injection 00 :13 Q24H, Medical 40 mg First dose Branch on Tue04/26/22 at 2315, Until Discontinu ed ondansetron 2021-0 Yes 4mg 4 mg, Slow Univers (ZOFRAN 7-05 IV Push, ity of (PF)) 03:10: Q6HPRN, [place] injection 4 38 Starting Medi erendira mg on Tue04/26/22 at 2210, Until Discontinu ed, Routine, Nausea and Vomiting (N/V) ondansetron 2021-0 Yes 4mg 4 mg, Slow Univers (ZOFRAN 7-05 IV Push, ity of (PF)) 03:10: Q6HPRN, [place] injection 4 38 Starting Medi erendira mg on Tue04/26/22 at 2210, Until Discontinu ed, Routine, Nausea and Vomiting (N/V) morpHINE (2 2021- No 2mg 2 mg, Slow Univers mg/mL) 04-27 IV Push, ity of injection 2 03:10: 02:18 Q4HPRN, [place] mg 30 :17 Starting Medical on Mon Branch 04/26/22 at 2210, Until Tue04/27/22 at [...] :00 dose, On Medical mEq/100 mL Tue04/26/22 [facility] RTU IVPB 20 at 1930, [...] Branch at 1830, STAT iopamidol 2021- No [id number] 50mL 50 mL, U nivers (ISOVUE 04-26 Intravenou ity o f 370-500 mL) 22:57: 22:57 s, ONCE, 1 [place] injection 00 :00 dose, On Medica l 50 mL Tue04/26/22 Branch at 1815, Routine valproic Yes Take by Univer s acid, as 7-04 mouth. Pt ity of sodium 21:06: unaware of [place] salt, 35 dosage Medical (DEPAKENE Branch ORAL) paliperidon 0 Yes by Univer s e palmitate 7-04 [...] Branch Takes monthly on the ibuprofen Yes [id number] 200mg Take 10 mL Univers 100 mg/5 mL 5-20 by mouth 3 it y of oral 00:00: (three) [place] suspension 00 times Medical daily with Branch meals. ibuprofen 2021-0 Yes [id number] 200mg Take 10 mL Univers 100 mg/5 mL 5-20 by mouth 3 it y of oral 00:00: (three) [place] suspension 00 times Medical daily with Branch meals. ibuprofen 2021-0 Yes [id number] 200mg Take 10 mL Univers 100 mg/5 mL 5-20 by mouth 3 it y of oral 00:00: (three) [place] suspension 00 times Medical daily with Branch meals. ibuprofen 2022-0 Yes [id number] 200mg Take 10 mL Univers 100 mg/5 mL 5-20 by mouth 3 it y of oral 00:00: (three) [place] suspension 00 times Medical daily with Branch meals. ibuprofen 2022-0 Yes [id number] 200mg Take 10 mL Univers 100 mg/5 mL 5-20 by mouth 3 it y of oral 00:00: (three) [place] suspension 00 times Medical daily with Branch meals. ibuprofen 2022-0 Yes [id number] 200mg Take 10 mL Univers 100 mg/5 mL 5-20 by mouth 3 it y of oral 00:00: (three) [place] suspension 00 times Medical daily with Branch meals. ibuprofen 2022-0 Yes [id number] 200mg Take 10 mL Univers 100 mg/5 mL 5-20 by mouth 3 it y of oral 00:00: (three) [place] suspension 00 times Medical daily with Branch meals. ibuprofen 2022-0 Yes [id number] 200mg Take 10 mL Univers 100 mg/5 mL 5-20 by mouth 3 it y of oral 00:00: (three) [place] suspension 00 times Medical daily with Branch meals. ibuprofen 2022-0 Yes [id number] 200mg Take 10 mL Univers 100 mg/5 mL 5-20 by mouth 3 it y of oral 00:00: (three) [place] suspension 00 times Medical daily with Branch meals. ibuprofen 2022-0 Yes [id number] 200mg Take 10 mL Univers 100 mg/5 mL 5-20 by mouth 3 it y of oral 00:00: (three) [place] suspension 00 times Medical daily with Branch meals. ibuprofen 2022-0 Yes [id number] 200mg Take 10 mL Univers 100 mg/5 mL 5-20 by mouth 3 it y of oral 00:00: (three) [place] suspension 00 times Medical daily with Branch meals. ibuprofen 2022-0 Yes [id number] 200mg Take 10 mL Univers 100 mg/5 mL 5-20 by mouth 3 it y of oral 00:00: (three) [place] suspension 00 times Medical daily with Branch meals. ibuprofen 2022-0 Yes [id number] 200mg Take 10 mL Univers 100 mg/5 mL 5-20 by mouth 3 it y of oral 00:00: (three) [place] suspension 00 times Medical daily with Branch meals. ibuprofen 2022-0 Yes [id number] 200mg Take 10 mL Univers 100 mg/5 mL 5-20 by mouth 3 it y of oral 00:00: (three) [place] suspension 00 times Medical daily with Branch meals. Immunizations Ordered Filled Immunization Date Status Comments [facility] e Immunization Name Name SARS-COV-2 COVID-19 2021-09-22 Completed Unive rsity of PFIZER VACCINE 00:00:00 [facility] SARS-COV-2 COVID-19 2021-09-22 Completed Unive rsity of PFIZER VACCINE 00:00:00 [facility] SARS-COV-2 COVID-19 2021-09-22 Completed Unive rsity of PFIZER VACCINE 00:00:00 [facility] SARS-COV-2 COVID-19 2021-09-22 Completed Unive rsity of PFIZER VACCINE 00:00:00 [facility] SARS-COV-2 COVID-19 2021-09-22 Completed Unive rsity of PFIZER VACCINE 00:00:00 [facility] SARS-COV-2 COVID-19 2021-09-22 Completed Unive rsity of PFIZER VACCINE 00:00:00 [facility] SARS-COV-2 COVID-19 2021-09-22 Completed Unive rsity of PFIZER VACCINE 00:00:00 [facility] SARS-COV-2 COVID-19 2021-09-22 Completed Unive rsity of PFIZER VACCINE 00:00:00 [facility] SARS-COV-2 COVID-19 2021-09-22 Completed Unive rsity of PFIZER VACCINE 00:00:00 [facility] SARS-COV-2 COVID-19 2021-09-22 Completed Unive rsity of PFIZER VACCINE 00:00:00 [facility] SARS-COV-2 COVID-19 2021-09-22 Completed Unive rsity of PFIZER VACCINE 00:00:00 [facility] SARS-COV-2 COVID-19 2021-09-22 Completed Unive rsity of PFIZER VACCINE 00:00:00 [facility] SARS-COV-2 COVID-19 2021-09-22 Completed Unive rsity of PFIZER VACCINE 00:00:00 [facility] SARS-COV-2 COVID-19 2021-09-22 Completed Unive rsity of PFIZER VACCINE 00:00:00 [place] Medi erendira Branch Influenza Virus 2020-08-30 Completed Universit y of Vaccine Quad .5 mL 00:00:00 [place] Medical IM 6+ MO Branch Pneumococcal 2020-08-30 Completed University o f Polysaccharide, 00:00:00 [place] Med ical PPSV23 (PNEUMOVAX) Branch Influenza Virus 2020-08-30 Completed Universit y of Vaccine Quad .5 mL 00:00:00 [place] Medical IM 6+ MO Branch Pneumococcal 2020-08-30 Completed University o f Polysaccharide, 00:00:00 [place] Med ical PPSV23 (PNEUMOVAX) Branch Influenza Virus 2020-08-30 Completed Universit y of Vaccine Quad .5 mL 00:00:00 [place] Medical IM 6+ MO Branch Pneumococcal 2020-08-30 Completed University o f Polysaccharide, 00:00:00 [place] Med ical PPSV23 (PNEUMOVAX) Branch Influenza Virus 2020-08-30 Completed Universit y of Vaccine Quad .5 mL 00:00:00 [place] Medical IM 6+ MO Branch Pneumococcal 2020-08-30 Completed University o f Polysaccharide, 00:00:00 [place] Med ical PPSV23 (PNEUMOVAX) Branch Influenza Virus 2020-08-30 Completed Universit y of Vaccine Quad .5 mL 00:00:00 [place] [facility] IM 6+ MO Branch Pneumococcal 2020-08-30 Completed University o f Polysaccharide, 00:00:00 [place] Med ical PPSV23 (PNEUMOVAX) Branch Influenza Virus 2020-08-30 Completed Universit y of Vaccine Quad .5 mL 00:00:00 [place] Medical IM 6+ MO Branch Pneumococcal 2020-08-30 Completed University o f Polysaccharide, 00:00:00 [place] Med ical PPSV23 (PNEUMOVAX) Branch Influenza Virus 2020-08-30 Completed Universit y of Vaccine Quad .5 mL 00:00:00 [place] Medical IM 6+ MO Branch Pneumococcal 2020-08-30 Completed University o f Polysaccharide, 00:00:00 [place] Med ical PPSV23 (PNEUMOVAX) Branch Influenza Virus 2020-08-30 Completed Universit y of Vaccine Quad .5 mL 00:00:00 [place] Medical IM 6+ MO Branch Pneumococcal 2020-08-30 Completed University o f Polysaccharide, 00:00:00 [place] Med ical PPSV23 (PNEUMOVAX) Branch Influenza Virus 2020-08-30 Completed Universit y of Vaccine Quad .5 mL 00:00:00 [place] [facility] IM 6+ MO Branch Pneumococcal 2020-08-30 Completed University o f Polysaccharide, 00:00:00 [place] Med ical PPSV23 (PNEUMOVAX) Branch Influenza Virus 2020-08-30 Completed Universit y of Vaccine Quad .5 mL 00:00:00 [facility] IM 6+ MO Branch Pneumococcal 2020-08-30 Completed University o f Polysaccharide, 00:00:00 [place] Med ical PPSV23 (PNEUMOVAX) Branch Influenza Virus 2020-08-30 Completed Universit y of Vaccine Quad .5 mL 00:00:00 [facility] IM 6+ MO Branch Pneumococcal 2020-08-30 Completed University o f Polysaccharide, 00:00:00 [place] Med ical PPSV23 (PNEUMOVAX) Branch Influenza Virus 2020-08-30 Completed Universit y of Vaccine Quad .5 mL 00:00:00 [facility] IM 6+ MO Branch Pneumococcal 2020-08-30 Completed University o f Polysaccharide, 00:00:00 [place] Med ical PPSV23 (PNEUMOVAX) Branch Influenza Virus 2020-08-30 Completed Universit y of Vaccine Quad .5 mL 00:00:00 [facility] 6+ MO Branch Pneumococcal 2020-08-30 Completed University o f Polysaccharide, 00:00:00 [place] Med ical PPSV23 (PNEUMOVAX) Branch Influenza Virus 2020-08-30 Completed Universit y of Vaccine Quad .5 mL 00:00:00 [facility] 6+ MO Branch Pneumococcal 2020-08-30 Completed University o f Polysaccharide, 00:00:00 [place] Med ical PPSV23 (PNEUMOVAX) [place] Vital Signs Vital Name Observation Time Observation Value Comments Source Systolic blood 2022-08-10 13:09:00 96 mm[Hg] Univer sity of pressure [facility] Diastolic blood 2022-08-10 13:09:00 66 mm[Hg] Unive rsity of pressure [facility] Heart rate 2022-08-10 13:09:00 75 /min [facility] Body temperature 2022-08-10 13:09:00 34.28 Maude [facility] height 2022-08-10 13:09:00 165.1 cm [facility] Body weight 2022-08-10 13:09:00 35.607 kg [facility] BMI 2022-08-10 13:09:00 13.06 kg/m2 [facility] [place] [facility] Systolic blood 2022-07-20 20:33:00 101 mm[Hg] Univer sity of pressure [place] [facility] Diastolic blood 2022-07-20 20:33:00 49 mm[Hg] Unive rsity of pressure [place] [facility] Heart rate 2022-07-20 20:33:00 67 /min [facility] [place] [facility] Body temperature 2022-07-20 20:33:00 36.11 Maude Univ ers[facility] [place] [facility] Respiratory rate 2022-07-20 20:33:00 18 /min Univ ersity [facility] [place] [facility] Oxygen saturation in 2022-07-20 20:33:00 97 /min University of Arterial blood by [place] [facility] Pulse oximetry Branch Body weight 2022-07-20 02:15:00 41.277 kg [facility] [place] [facility] BMI 2022-07-20 02:15:00 15.14 kg/m2 [facility] [place] [facility] Body height 2022-07-10 02:38:00 165.1 cm [facility] [place] [facility] Systolic blood 2022-07-12 02:00:00 108 mm[Hg] Univer sity of pressure [place] [facility] Diastolic blood 2022-07-12 02:00:00 52 mm[Hg] Unive rsity of pressure [place] [facility] Heart rate 2022-07-12 02:00:00 96 /min [facility] [place] [facility] Body temperature 2022-07-12 02:00:00 36.67 Maude [facility] [place] [facility] Respiratory rate 2022-07-12 02:00:00 25 /min Univ ers[facility] [place] [facility] Oxygen saturation in 2022-07-12 02:00:00 94 /min University of Arterial blood by [place] [facility] Pulse oximetry Branch Body weight 2022-07-11 08:23:00 35.97 kg [facility] [place] [facility] BMI 2022-07-11 08:23:00 12.83 kg/m2 [facility] [place] [facility] Body height 2022-07-10 02:38:00 165.1 cm [facility] [place] [facility] Systolic blood 2022-05-27 03:00:00 94 mm[Hg] Univer sity of pressure [place] [facility] Diastolic blood 2022-05-27 03:00:00 69 mm[Hg] Unive rsity of pressure [place] [facility] Heart rate 2022-05-27 03:00:00 73 /min [facility] [place] [facility] Respiratory rate 2022-05-27 03:00:00 18 /min Univ ersity [facility] [place] [facility] Oxygen saturation in 2022-05-27 03:00:00 100 /min University of Arterial blood by [place] [facility] Pulse oximetry Branch Body temperature 2022-05-27 00:00:00 36.67 Maude [facility] [place] [facility] Body height 2022-05-27 00:00:00 165.1 cm [facility] [place] [facility] Body weight 2022-05-27 00:00:00 44.453 kg [facility] [place] [facility] BMI 2022-05-27 00:00:00 16.31 kg/m2 [facility] [place] [facility] Systolic blood 2022-05-04 13:19:00 100 mm[Hg] Univer [facility]ity of [facility] Diastolic blood 2022-05-04 13:19:00 66 mm[Hg] Unive rsity of pressure [facility] Heart rate 2022-05-04 13:19:00 60 /min [facility] Body temperature 2022-05-04 13:19:00 36.83 Maude Univ ers[facility] Respiratory rate 2022-05-04 13:19:00 14 /min Univ [facility] Oxygen saturation in 2022-05-04 13:19:00 98 /min University of Arterial blood by [place] [facility] erendira Pulse oximetry Branch Body weight 2022-04-29 08:40:00 41.958 kg [facility] [place] [facility] BMI 2022-04-29 08:40:00 15.39 kg/m2 [facility] Body height 2022-04-27 02:59:00 165.1 cm [facility] Systolic blood 2022-04-28 14:24:00 112 mm[Hg] Univer sity of pressure [facility] Diastolic blood 2022-04-28 14:24:00 77 mm[Hg] Unive rsity of pressure [facility] Heart rate 2022-04-28 14:24:00 51 /min [facility] Body temperature 2022-04-28 14:24:00 36.56 Maude [facility] 2022-04-28 14:24:00 16 /min [facility] Oxygen saturation in 2022-04-28 14:24:00 98 /min University of Arterial blood by [facility] Pulse oximetry Branch Body weight 2022-04-28 09:16:00 43.999 kg Universi ty [facility] BMI 2022-04-28 09:16:00 15.39 kg/m2 Universi ty [facility] Body height 2022-04-27 02:59:00 165.1 cm Universi ty [facility] Systolic blood 2022-04-28 16:55:00 111 mm[Hg] Univer sity of pressure [facility] Diastolic blood 2022-04-28 16:55:00 74 mm[Hg] Unive rsity of [facility] Heart rate 2022-04-28 16:55:00 55 /min Universi ty [facility] Body temperature 2022-04-28 16:55:00 36.39 Maude [facility] Respiratory rate 2022-04-28 16:55:00 15 /min [facility] Oxygen saturation in 2022-04-28 16:55:00 96 /min University of Arterial blood by [facility] Pulse oximetry Branch Body weight 2022-04-28 09:16:00 43.999 kg Universi ty [facility] BMI 2022-04-28 09:16:00 16.14 kg/m2 Universi ty [facility] Body height 2022-04-27 02:59:00 165.1 cm [facility] Procedures Procedure Date / Time Performing Source Performed Clinician POCT GLUCOSE (AUTOMATED) 2022-07-20 Jorden Robertson ity of 16:40:00 [facility] POCT GLUCOSE (AUTOMATED) 2022-07-20 Jorden Robertson ity of 12:49:00 [facility] PREALBUMIN, SERUM 2022-07-20 [facility] o f 10:59:00 [facility] CORTISOL AM 2022-07-20 Dotty Camarillo Ennice of 10:59:00 [facility] PHOSPHORUS 2022-07-20 Jorden Robertson Ennice of 10:52:00 [facility] MAGNESIUM 2022-07-20 [facility], [facility] of 10:52:00 [facility] BASIC METABOLIC PANEL (NA, K, CL, 2022-07-20 [facility] of CO2, GLUCOSE, BUN, CREATININE, CA) 10:52:00 [facility] POCT GLUCOSE (AUTOMATED) 2022-07-20 Marcelo, Jorden Univers ity of 04:40:00 [facility] POCT GLUCOSE (AUTOMATED) 2022-07-20 Ovrobert, Jorden Univers ity of 00:55:00 [facility] POCT GLUCOSE (AUTOMATED) 2022-07-19 Ovrobert, Jorden Univers ity of 22:01:00 [facility] POCT GLUCOSE (AUTOMATED) 2022-07-19 Ovrobert, Jorden Univers ity of 16:38:00 [facility] POCT GLUCOSE (AUTOMATED) 2022-07-19 [facility], Jorden Univers ity of 12:42:00 [facility] PHOSPHORUS 2022-07-19 Gustavo Guy Ennice of 10:20:00 Tricia [facility] BASIC METABOLIC PANEL (NA, K, CL, 2022-07-19 PatrickKeysha ha Ennice of CO2, GLUCOSE, BUN, CREATININE, CA) 10:20:00 D [facility] CBC WITH DIFF 2022-07-19 [facility] of 10:20:00 D [facility] POCT GLUCOSE (AUTOMATED) 2022-07-19 Kamron Robertsnolani Univers ity of 08:56:00 [facility] POCT GLUCOSE (AUTOMATED) 2022-07-19 Ovrobert, Jorden Univers ity of 06:09:00 [facility] POCT GLUCOSE (AUTOMATED) 2022-07-19 Oville, Jorden Univers ity of 01:10:00 [facility] POCT GLUCOSE (AUTOMATED) 2022-07-18 Ovrobert, Jorden Univers ity of 21:12:00 [facility] POCT GLUCOSE (AUTOMATED) 2022-07-18 Oville, Jorden Univers ity of 16:26:00 [facility] POCT GLUCOSE (AUTOMATED) 2022-07-18 Ovrobert, Jorden Univers ity of 13:13:00 [facility] PHOSPHORUS 2022-07-18 [facility] of 10:08:00 [facility] MAGNESIUM 2022-07-18 Jina, [facility] of 10:08:00 [facility] BASIC METABOLIC PANEL (NA, K, CL, 2022-07-18 Jc Muro [facility] of CO2, GLUCOSE, BUN, CREATININE, CA) 10:08:00 [facility] POCT GLUCOSE (AUTOMATED) 2022-07-18 Ovrobert, Jorden Univers ity of 10:07:00 [facility] POCT GLUCOSE (AUTOMATED) 2022-07-18 [facility] Univers ity of 06:17:00 [facility] POCT GLUCOSE (AUTOMATED) 2022-07-18 Zachary Li Univers ity of 01:38:00 [facility] POCT GLUCOSE (AUTOMATED) 2022-07-17 Zachary Li Univers ity of 21:37:00 [facility] POCT GLUCOSE (AUTOMATED) 2022-07-17 Zachary Li Univers ity of 16:46:00 [facility] POCT GLUCOSE (AUTOMATED) 2022-07-17 Zachary Li Univers ity of 13:01:00 [facility] PHOSPHORUS 2022-07-17 [facility], [facility] of 09:12:00 [facility] MAGNESIUM 2022-07-17 [facility], [facility] of 09:12:00 [facility] BASIC METABOLIC PANEL (NA, K, CL, 2022-07-17 [facility], [facility] of CO2, GLUCOSE, BUN, CREATININE, CA) 09:12:00 [facility] CBC WITH DIFF 2022-07-17 Kelvin Muro Ennice of 09:12:00 [facility] POCT GLUCOSE (AUTOMATED) 2022-07-17 Zachary Li Univers ity of 09:10:00 [facility] POCT GLUCOSE (AUTOMATED) 2022-07-17 Zachary Li Univers ity of 05:23:00 [facility] POCT GLUCOSE (AUTOMATED) 2022-07-17 Zachary Li Univers ity of 01:06:00 [facility] POCT GLUCOSE (AUTOMATED) 2022-07-16 Zachary Li Univers ity of 21:35:00 [facility] POCT GLUCOSE (AUTOMATED) 2022-07-16 Zachary Li Univers ity of 16:31:00 [facility] POCT GLUCOSE (AUTOMATED) 2022-07-16 Zachary Li ity of 09:19:00 [facility] PHOSPHORUS 2022-07-16 [facility] of 08:41:00 [facility] MAGNESIUM 2022-07-16 [facility] of 08:41:00 [facility] FERRITIN SERUM 2022-07-16 [facility] of 08:41:00 [facility] IRON 2022-07-16 [facility] of 08:41:00 [facility] TOTAL IRON BINDING CAPACITY 2022-07-16 [facility] ersity of 08:41:00 [facility] BASIC METABOLIC PANEL (NA, K, CL, 2022-07-16 [facility], May [facility] of CO2, GLUCOSE, BUN, CREATININE, CA) 08:41:00 [facility] CBC WITH DIFF 2022-07-16 [facility] of 08:41:00 [facility] RETICULOCYTES AUTOMATED 2022-07-16 Zachary Lii ty of 08:41:00 [facility] POCT GLUCOSE (AUTOMATED) 2022-07-16 Zachary Li Univers ity of 05:21:00 [facility] POCT GLUCOSE (AUTOMATED) 2022-07-16 Zachary Li Univers ity of 01:20:00 [facility] POCT GLUCOSE (AUTOMATED) 2022-07-15 Zachary Li ity of 21:53:00 [facility] POCT GLUCOSE (AUTOMATED) 2022-07-15 Zachary Li ity of 17:09:00 [facility] POCT GLUCOSE (AUTOMATED) 2022-07-15 Zachary Li ity of 13:45:00 [facility] XR KUB 2022-07-15 [facility] of 13:43:35 [facility] MAGNESIUM 2022-07-15 [facility] of 09:38:00 [facility] BASIC METABOLIC PANEL (NA, K, CL, 2022-07-15 [facility], [facility] University of CO2, GLUCOSE, BUN, CREATININE, CA) 09:38:00 [facility] CBC WITH DIFF 2022-07-15 [facility] of 09:38:00 [facility] POCT GLUCOSE (AUTOMATED) 2022-07-15 Zachary Li ity of 04:59:00 [facility] POCT GLUCOSE (AUTOMATED) 2022-07-15 Zachary Li Univers ity of 01:09:00 [place] [facility] POCT GLUCOSE (AUTOMATED) 2022-07-14 Zachary Li Univers ity of 21:08:00 [facility] POCT GLUCOSE (AUTOMATED) 2022-07-14 Zachary Li ity of 16:10:00 [facility] POCT GLUCOSE (AUTOMATED) 2022-07-14 Zachary Li Univers ity of 12:39:00 [facility] PHOSPHORUS 2022-07-14 Zachary Li of 10:36:00 [facility] MAGNESIUM 2022-07-14 Zachary Li Ennice of 10:36:00 [facility] IRON 2022-07-14 Zachary Li Ennice of 10:36:00 [facility] COMP. METABOLIC PANEL ([id number]) 2022-07-14 Zachary Li Un iversity of 10:36:00 [facility] CBC WITH DIFF 2022-07-14 Zachary Li of 10:36:00 [facility] POCT GLUCOSE (AUTOMATED) 2022-07-14 Zahcary Li Univers ity of 09:06:00 [facility] POCT GLUCOSE (AUTOMATED) 2022-07-14 Zachary Li Univers ity of 05:22:00 [facility] POCT GLUCOSE (AUTOMATED) 2022-07-13 Zachary Li Univers ity of 22:27:00 [facility] POCT GLUCOSE (AUTOMATED) 2022-07-13 Zachary Li ity of 20:56:00 [facility] POCT GLUCOSE (AUTOMATED) 2022-07-13 Zachary Li ity of 15:49:00 [facility] POCT GLUCOSE (AUTOMATED) 2022-07-13 Zachary Li Univers ity of 15:15:00 [facility] POCT GLUCOSE (AUTOMATED) 2022-07-13 Zachary Li ity of 14:59:00 [facility] PREALBUMIN, SERUM 2022-07-13 Jina [facility] o f 10:51:00 [facility] PHOSPHORUS 2022-07-13 Jina [facility] of 10:51:00 [facility] MAGNESIUM 2022-07-13 [facility] 10:51:00 [facility] TOTAL IRON BINDING CAPACITY 2022-07-13 [facility] ersity of 10:51:00 [facility] BASIC METABOLIC PANEL (NA, K, CL, 2022-07-13 Jina, May [facility] of CO2, GLUCOSE, BUN, CREATININE, CA) 10:51:00 [facility] CBC WITH DIFF 2022-07-13 [facility] 10:51:00 [facility] XR CHEST 1 VW 2022-07-12 [facility] of 21:52:10 [facility] PREALBUMIN, SERUM 2022-07-12 [facility] of 15:31:00 [facility] VANCOMYCIN TROUGH 2022-07-12 [facility] of 11:07:00 [facility] VANCOMYCIN TROUGH 2022-07-12 [facility] of 11:07:00 [facility] PHOSPHORUS 2022-07-12 [facility] 10[facility]02:00 [facility] URIC ACID 2022-07-12 Max [facility] 10:02:00 [facility] MAGNESIUM 2022-07-12 [facility] 10:02:00 [facility] BASIC METABOLIC PANEL (NA, K, CL, 2022-07-12 Jina, May [facility] of CO2, GLUCOSE, BUN, CREATININE, CA) 10:02:00 [facility] CBC WITH DIFF 2022-07-12 [facility] 10:02:00 [facility] PHOSPHORUS 2022-07-12 [facility] 10:02:00 [facility] URIC ACID 2022-07-12 Max Cruz [facility] 10:02:00 [facility] MAGNESIUM 2022-07-12 [facility] 10:02:00 [facility] BASIC METABOLIC PANEL (NA, K, CL, 2022-07-12 Jina, May [facility] University of CO2, GLUCOSE, BUN, CREATININE, CA) 10:02:00 [facility] CBC WITH DIFF 2022-07-12 [facility] of 10:02:00 [facility] AC PANEL 20 + LACTIC ACID 2022-07-11 Johnny [facility] ersity of 20:53:00 Elier [facility] AC PANEL 20 + LACTIC ACID 2022-07-11 Johnny, [facility] ersity of 20:53:00 Elier [facility] SURGICAL PATHOLOGY EXAM 2022-07-11 [facility] ty of 20:28:00 [facility] XR CHEST 1 2022-07-11 [facility] of 19:33:38 [facility] XR CHEST 1 2022-07-11 [facility], [facility] of 19:33:38 [facility] EXPLORATORY LAPAROTOMY 2022-07-11 [facility] y of 18:36:00 [facility] BOWEL RESECTION 2022-07-11 [place] of 18:36:00 [facility] EXPLORATORY LAPAROTOMY 2022-07-11 [facility] y of 18:36:00 [facility] BOWEL RESECTION 2022-07-11 [place] of 18:36:00 [facility] XR KUB 2022-07-11 [facility], [facility] of 16:08:01 [facility] XR KUB 2022-07-11 [facility], [facility] of 16:08:01 [facility] BASIC METABOLIC PANEL (NA, K, CL, 2022-07-11 Zachary Li Ennice of CO2, GLUCOSE, BUN, CREATININE, CA) 11:50:00 [facility] BASIC METABOLIC PANEL (NA, K, CL, 2022-07-11 Zachary Li of CO2, GLUCOSE, BUN, CREATININE, CA) 11:50:00 [facility] XR KUB 2022-07-11 [facility] of 11:39:00 [facility] XR KUB 2022-07-11 [facility] of 11:39:00 [facility] CBC WITH DIFF 2022-07-11 Zachary Li Ennice of 10:45:00 [facility] CBC WITH DIFF 2022-07-11 Zachary Li Ennice of 10:45:00 [facility] CT ABDOMEN PELVIS WO CONTRAST 2022-07-11 Zachary Li Un iversity of 01:46:33 [facility] CT ABDOMEN PELVIS WO CONTRAST 2022-07-11 Zachary Li Un iversity of 01:46:33 [facility] MRSA / MSSA SCREEN BY PCR, CLAUDIA 2022-07-10 Zachary Li of 23:27:00 [facility] MRSA / MSSA SCREEN BY PCR, CLAUDIA 2022-07-10 Zachary Li Ennice of 23:27:00 [facility] XR KUB 2022-07-10 Zachary Li Ennice of 22:40:17 [facility] XR KUB 2022-07-10 [facility] of 22:40:17 [facility] LACTIC ACID WHOLE BLOOD 2022-07-10 Iram Payne [facility] ity of 16:06:00 J [facility] LACTIC ACID WHOLE BLOOD 2022-07-10 Iram Payne [facility] ity of 16:06:00 J [facility] BLOOD CULTURE SCREEN 2022-07-10 Lupillo Taylor Ennice of 10:59:00 [facility] PHOSPHORUS 2022-07-10 Lupillo Taylor Ennice of 10:59:00 [facility] MAGNESIUM 2022-07-10 Lupillo Taylor Ennice of 10:59:00 [facility] BASIC METABOLIC PANEL (NA, K, CL, 2022-07-10 Aaron Taylor Ennice of CO2, GLUCOSE, BUN, CREATININE, CA) 10:59:00 [facility] CBC WITH DIFF 2022-07-10 Lupillo Taylor Ennice of 10:59:00 [facility] BLOOD CULTURE SCREEN 2022-07-10 Lupillo Taylor Ennice of 10:59:00 [facility] PHOSPHORUS 2022-07-10 Lupillo Taylor Ennice of 10:59:00 [facility] MAGNESIUM 2022-07-10 Lupillo Taylor Ennice of 10:59:00 [facility] BASIC METABOLIC PANEL (NA, K, CL, 2022-07-10 Aaron Taylor Ennice of CO2, GLUCOSE, BUN, CREATININE, CA) 10:59:00 [facility] CBC WITH DIFF 2022-07-10 Lupillo Taylor Ennice of 10:59:00 [facility] CT ABDOMEN PELVIS WO CONTRAST 2022-07-10 Lupillo Taylor Un iversity of 09:25:28 [facility] CT ABDOMEN PELVIS WO CONTRAST 2022-07-10 Lupillo Taylor Un iversity of 09:25:28 [facility] COVID-19 (ID NOW RAPID TESTING) 2022-07-10 Iram Payne Ennice of 01:12:00 J [facility] COVID-19 (ID NOW RAPID TESTING) 2022-07-10 Iram Payne of 01:12:00 J [facility] LAB ONLY COVID INTERPRETATION 2022-07-10 Iram Payne [facility] of 01:12:00 J [facility] LACTIC ACID WHOLE BLOOD 2022-07-10 Iram Payne ity of 00:14:00 J [facility] LACTIC ACID WHOLE BLOOD 2022-07-10 Iram Payne ity of 00:14:00 J [facility] LIPASE 2022-07-10 Iram Payne of 00:10:00 J [facility] MAGNESIUM 2022-07-10 Iram Payne Ennice of 00:10:00 J [facility] COMP. METABOLIC PANEL ([id number]) 2022-07-10 Iram Payne niversity of 00:10:00 J [facility] CBC WITH DIFF 2022-07-10 Iram Payne of 00:10:00 J [facility] LIPASE 2022-07-10 Iram Payne of 00:10:00 J [facility] MAGNESIUM 2022-07-10 Iram Payne of 00:10:00 J [facility] COMP. METABOLIC PANEL ([id number]) 2022-07-10 Iram Payne niversity of 00:10:00 J [facility] CBC WITH DIFF 2022-07-10 Iram Payne Ennice of 00:10:00 J [facility] NOTICE OF PRIVACY PRACTICES 2022-07-09 Doctor [facility] ersity of 23:38:54 Unassigned, No [facility] NOTICE OF PRIVACY PRACTICES 2022-07-09 Doctor Univ ersity of 23:38:54 Unassigned, No [facility] CONSENT/REFUSAL FOR DIAGNOSIS AND 2022-07-09 Doctor Ennice of TREATMENT 23:37:03 Unassigned, No [facility] CONSENT/REFUSAL FOR DIAGNOSIS AND 2022-07-09 Doctor Ennice of TREATMENT 23:37:03 Unassigned, No [facility] COMP. METABOLIC PANEL ([id number]) 2022-05-27 Janene Taylor iversity of 00:31:00 [facility] CBC WITH DIFF 2022-05-27 Janene Taylor University of 00:31:00 [facility] CONSENT/REFUSAL FOR DIAGNOSIS AND 2022-05-26 Doctor Ennice of TREATMENT 23:52:11 Unassigned, No [facility] XR KUB 2022-05-01 Massimo [facility] of 15:57:16 [facility] BASIC METABOLIC PANEL (NA, K, CL, 2022-04-29 [place], [facility] of CO2, GLUCOSE, BUN, CREATININE, CA) 09:55:00 [facility] BASIC METABOLIC PANEL (NA, K, CL, 2022-04-29 [place], [facility] of CO2, GLUCOSE, BUN, CREATININE, CA) 09:55:00 [facility] CBC WITHOUT DIFF 2022-04-28 [facility] [place] of 17:04:00 [facility] CBC WITHOUT DIFF 2022-04-28 [facility], [facility] of 17:04:00 [facility] CBC WITHOUT DIFF 2022-04-28 [facility], [facility] of 17:04:00 [facility] MAGNESIUM 2022-04-28 [facility], [facility] of 17:03:00 [facility] BASIC METABOLIC PANEL (NA, K, CL, 2022-04-28 [place], [facility] of CO2, GLUCOSE, BUN, CREATININE, CA) 17:03:00 [facility] BASIC METABOLIC PANEL (NA, K, CL, 2022-04-28 [place], [facility] of CO2, GLUCOSE, BUN, CREATININE, CA) 17:03:00 [facility] MAGNESIUM 2022-04-28 [facility], [facility] of 17:03:00 [facility] BASIC METABOLIC PANEL (NA, K, CL, 2022-04-28 [place], [facility] of CO2, GLUCOSE, BUN, CREATININE, CA) 17:03:00 [facility] INTUBATION 2022-04-28 Alexandre [facility] of 14:47:00 [facility] ESOPHAGOGASTRODUODENOSCOPY 2022-04-28 [facility] of 14:27:00 K [facility] ESOPHAGOGASTRODUODENOSCOPY 2022-04-28 [facility] of 14:27:00 K [facility] EGD (ENDO) 2022-04-28 [facility] of 14:21:27 [facility] EGD (ENDO) 2022-04-28 [facility] of 14:21:27 [facility] POTASSIUM SERUM 2022-04-27 [facility] of 22:05:00 [facility] BASIC METABOLIC PANEL (NA, K, CL, 2022-04-27 [place], [facility] of CO2, GLUCOSE, BUN, CREATININE, CA) 22:05:00 [facility] POTASSIUM SERUM 2022-04-27 [facility] of 22:05:00 [facility] BASIC METABOLIC PANEL (NA, K, CL, 2022-04-27 [place], [facility] of CO2, GLUCOSE, BUN, CREATININE, CA) 22:05:00 [facility] POTASSIUM SERUM 2022-04-27 [facility] of 22:05:00 [facility] BASIC METABOLIC PANEL (NA, K, CL, 2022-04-27 [place], [facility] of CO2, GLUCOSE, BUN, CREATININE, CA) 22:05:00 [facility] BASIC METABOLIC PANEL (NA, K, CL, 2022-04-27 Sanchez, [facility] of CO2, GLUCOSE, BUN, CREATININE, CA) 15:10:00 [facility] BASIC METABOLIC PANEL (NA, K, CL, 2022-04-27 Sanchez, [facility] of CO2, GLUCOSE, BUN, CREATININE, CA) 15:10:00 [facility] BASIC METABOLIC PANEL (NA, K, CL, 2022-04-27 [facility], [facility] of CO2, GLUCOSE, BUN, CREATININE, CA) 15:10:00 [facility] COVID-19 (ID NOW RAPID TESTING) 2022-04-27 Charlotte Miranda of 00:04:00 [facility] LAB ONLY COVID INTERPRETATION 2022-04-27 Charlotte Miranda Un iversity of 00:04:00 [facility] COVID-19 (ID NOW RAPID TESTING) 2022-04-27 Charlotte Miranda Ennice of 00:04:00 [facility] LAB ONLY COVID INTERPRETATION 2022-04-27 Charlotte Miranda Un iversity of 00:04:00 [facility] COVID-19 (ID NOW RAPID TESTING) 2022-04-27 Charlotte Miranda Ennice of 00:04:00 [facility] LAB ONLY COVID INTERPRETATION 2022-04-27 Charlotte Miranda Un iversity of 00:04:00 [facility] CT THORAX W CONTRAST 2022-04-26 Charlotte Miranda Ennice of 23:01:53 [facility] CT THORAX W CONTRAST 2022-04-26 [facility] of 23:01:53 [facility] CT THORAX W CONTRAST 2022-04-26 [facility] of 23:01:53 [facility] LIPASE 2022-04-26 [facility] of 22:45:00 [facility] MAGNESIUM 2022-04-26 [place], [facility] of 22:45:00 [facility] TROPONIN I 2022-04-26 [facility] of 22:45:00 [facility] COMP. METABOLIC PANEL ([id number]) 2022-04-26 Charlotte Miranda Un iversity of 22:45:00 [facility] CBC WITH DIFF 2022-04-26 [facility]Roberto [facility] of 22:45:00 [facility] N-TERMINAL PRO-BNP 2022-04-26 [facility] of 22:45:00 [facility] CBC WITH DIFF 2022-04-26 Ebrahikenny, [facility] of 22:45:00 [facility] TROPONIN I 2022-04-26 Ruth [facility] of 22:45:00 [facility] N-TERMINAL PRO-BNP 2022-04-26 Albertdckenny [facility] of 22:45:00 [facility] LIPASE 2022-04-26 [facility]Roberto [facility] of 22:45:00 [facility] COMP. METABOLIC PANEL ([id number]) 2022-04-26 Charlotte Miranda Un iversity of 22:45:00 [facility] MAGNESIUM 2022-04-26 Maryjane [facility] of 22:45:00 [facility] LIPASE 2022-04-26 [facility] of 22:45:00 [facility] MAGNESIUM 2022-04-26 Maryjane [facility] of 22:45:00 [facility] TROPONIN I 2022-04-26 [facility]Rober[facility] of 22:45:00 [facility] COMP. METABOLIC PANEL ([id number]) 2022-04-26 Charlotte Miranda Un iversity of 22:45:00 [facility] CBC WITH DIFF 2022-04-26 [facility] of 22:45:00 [facility] N-TERMINAL PRO-BNP 2022-04-26 [facility] of 22:45:00 [facility] HB ECG ROUTINE & RHYTHM STRIP 2022-04-26 Charlotte Miranda Un iversity of 22:15:20 [facility] HB ECG ROUTINE & RHYTHM STRIP 2022-04-26 Charlotte Miranda Un iversity of 22:15:20 [facility] HB ECG ROUTINE & RHYTHM STRIP 2022-04-26 Charlotte Miranda Un iversity of 22:15:20 [facility] XR CHEST 1 VW 2022-04-26 Ruth [facility] of 21:18:17 [facility] XR CHEST 1 VW 2022-04-26 [facility] of 21:18:17 [facility] XR CHEST 1 VW 2022-04-[address] [facility] of 21:18:17 [facility] CONSENT/REFUSAL FOR DIAGNOSIS AND 2022-04-26 [facility] 20:55:28 Unassigned, No [facility] CONSENT/REFUSAL FOR DIAGNOSIS AND 2022-04-26 [facility] 20:55:28 Unassigned, No [facility] CONSENT/REFUSAL FOR DIAGNOSIS AND 2022-04-26 [facility] 20:55:28 Unassigned, No [facility] SURGICAL PATHOLOGY EXAM 2022-03-12 Negrito Shaver [facility] ty of 15:50:00 [facility] INTUBATION 2022-03-12 Юлия Sutton of 14:53:00 Dee Dee [facility] INGUINAL HERNIORRHAPHY 2022-03-12 Negrito Shaver [facility] y of 14:34:00 [facility] OPEN APPENDECTOMY 2022-03-12 Negrito Shaver Ennice of 14:34:00 [facility] DAY SURGERY - ADC 2022-03-12 Ennice of 05:01:00 Unassigned, No [facility] CONSENT/REFUSAL FOR DIAGNOSIS AND 2022-03-09 [facility] 20:29:26 Unassigned, No [facility] ASSIGNMENT OF BENEFITS 2022-03-09 Doctor Univers[facility] y of 20:29:06 Unassigned, No [facility] COVID-19 (ID NOW RAPID TESTING) 2022-03-09 Negrito Shaver [facility] of 20:27:00 [place] [facility] LAB ONLY COVID INTERPRETATION 2022-03-09 Negrito Shaver Un iversity of 20:27:00 [place] [facility] NOTICE OF PRIVACY PRACTICES 2022-03-09 Doctor [facility] ersity of 20:22:10 Unassigned, No [facility] CONSENT/REFUSAL FOR DIAGNOSIS AND 2022-03-09 [facility] of TREATMENT 20:21:53 Unassigned, No [facility] ASSIGNMENT OF BENEFITS 2022-03-09 Doctor Univers[facility] of 20:21:32 Unassigned, No [facility] DISCLOSURE AND CONSENT, MEDICAL 2022-03-05 [facility] AND SURGICAL PROCEDURES 05:01:00 Unassigned, No [facility] dical Name Branch INTUBATION 2022-02-[address] [facility] of 17:01:00 [facility] HB ABO GROUPING 2022-02-25 Stephanie Galvez Ennice of 15:52:00 [facility] CONSENT/REFUSAL FOR DIAGNOSIS AND 2022-02-25 [facility] of TREATMENT 13:23:24 Unassigned, No [facility] COVID-19 (ID NOW RAPID TESTING) 2022-02-25 Zander Howe of 13:18:00 [facility] Branch LAB ONLY COVID INTERPRETATION 2022-02-25 Zander Howe Un iversity of 13:18:00 [facility] Branch ASSIGNMENT OF BENEFITS 2022-02-25 Doctor Universit y of 13:04:20 Unassigned, No [facility] DAY SURGERY - MERCED 2022-02-25 Doctor [facility] of 05:01:00 Unassigned, No [facility] REFERRAL- REQUEST/RESPONSE 2022-02-18 Doctor [facility] rsity of 05:01:00 Unassigned, No [facility] XR CHEST 2 VW 2022-02-04 Liv Boucher [facility] of 20:28:00 [facility] CBC WITH DIFF 2022-02-04 Liv Boucher [facility] of 20:11:00 [facility] BASIC METABOLIC PANEL (NA, K, CL, 2022-02-04 Liv Boucher Ennice of CO2, GLUCOSE, BUN, CREATININE, CA) 20:11:00 [facility] HEPATIC FUNCTION PANEL ([id number]) 2022-02-04 Liv Boucher [facility] of (ALB,T.PRO,BILI 20:11:00 [facility],BU/BC,ALT,AST,ALK PHOS) [place] PREALBUMIN, SERUM 2022-02-04 Liv Boucher [facility] 20:11:00 [facility] Plan of Care Planned Activity Planned Date Details Comments Source Future Scheduled Test 2022-07-24 00:00:00 IMM Influenza [facility] Seasonal (>/= 19 yrs) [code = IMM Influenza Seasonal (>/= 19 yrs)] Future Scheduled Test 2022-07-24 00:00:00 IMM Influenza [facility] Seasonal (>/= 19 yrs) [code = IMM Influenza Seasonal (>/= 19 yrs)] Future Scheduled Test 2022-07-24 00:00:00 IMM Influenza [facility] Seasonal (>/= 19 yrs) [code = IMM Influenza Seasonal (>/= 19 yrs)] Future Scheduled Test 2022-07-24 00:00:00 IMM Influenza [facility] Seasonal (>/= 19 yrs) [code = IMM Influenza Seasonal (>/= 19 yrs)] Future Scheduled Test 2022-07-24 00:00:00 IMM Influenza [facility] Seasonal (>/= 19 yrs) [code = IMM Influenza Seasonal (>/= 19 yrs)] Future Scheduled Test 2022-07-24 00:00:00 IMM Influenza [facility] Seasonal (>/= 19 yrs) [code = IMM Influenza Seasonal (>/= 19 yrs)] Future Scheduled Test 2022-07-24 00:00:00 IMM Influenza [facility] Seasonal (>/= 19 yrs) [code = IMM Influenza Seasonal (>/= 19 yrs)] Future Scheduled Test 2022-07-24 00:00:00 IMM Influenza [facility] Seasonal (>/= 19 yrs) [code = IMM Influenza Seasonal (>/= 19 yrs)] Future Scheduled Test 2021-07-24 00:00:00 IMM Influenza [facility] Seasonal Jul to December (>/= 19 [...] Varnish [facility] [code = Fluoride Varnish] Future Scheduled Test 1984 00:00:00 Fluoride Varnish [facility] [code = Fluoride Varnish] Future Scheduled Test 1984 00:00:00 Fluoride Varnish [facility] [code = Fluoride Varnish] Future Scheduled Test 1984 00:00:00 Fluoride Varnish [facility] [code = Fluoride Varnish] Future Scheduled Test 1984 00:00:00 Fluoride Varnish [facility] [code = Fluoride Varnish] Future Scheduled Test 1984 00:00:00 Fluoride Varnish [facility] [code = Fluoride Varnish] Future Scheduled Test 1984 00:00:00 Fluoride Varnish [facility] [code = Fluoride Varnish] Future Scheduled Test 1984 00:00:00 Fluoride Varnish [facility] [code = Fluoride Varnish] Encounters Start End Encounter Admission Attending Care Care Encounter Source Date/Time Date/Time Type Type Clinicians Facility Department ID 2022-05-18 Outpatient [facility] [id number] [place] 14:53:18 [id number] [facility] 2022-01-18 Outpatient [facility] [id number] [place] 04:45:38 [id number] [facility] 2020-10-19 Inpatient X LEROY [facility] [id number] Univers 02:37:00 AMBAR [facility] 2020-10-06 Inpatient HCAPM JOSE [id number] [facility] 00:50:00 11 [facility] 2023-02-08 2023-02-08 Outpatient R [facility] [id number] Univers 09:00:00 [facility]10 2022-08-10 Office Genie Laureano UNIVERSI T 1.2.840.114 [id number] Univers 09:00:00 09:30:00 Visit Dariel uH [facility] 350.1.13. 10 ity of [facility] 4.2.7.2.686 [facility] [id number] [address] 2022-08-10 2022-08-10 Outpatient R FRITZ [facility] [id number] Univers 09:00:00 09:00:00 DARIEL [facility] 2022-07-09 2022-07-20 [facility] [id number] Univers 18:43:00 16:45:00 JORDEN [facility] 2022-07-09 2022-07-20 [facility] Iram Payne [facility] 1.2.84 0.114 [id number] Univers 18:43:00 16:45:00 Encounter Lupillo Taylor 350.1.13.10 ity of Zachary Li 4.2.7.2.686 [facility] [id number] [address] 2022-07-12 2022-07-12 Outpatient R [facility] [id number] Univers 13:30:00 13:30:00 ity [facility] 2022-07-11 2022-07-11 Surgery [facility] 1.2.840.114 [id number] Univers 13:00:00 21:28:00 German ALEXIARL 350.1.13.10 i ty of [place].2.[place].686 [place]ICAL [id number] [facility] 020 Branch 2022-06-04 2022-06-04 Telephone YARELI Capps 1.2.840.114 [id number] Univers 00:00:00 00:00:00 Williamsvannessa Mcdaniel [facility] 350.1.13.10 it[place] of CL[place]ICS 4.[place] [id number] [facility] 071 Branch 2022-05-26 2022-05-26 Emergency X [facility]EL [facility] ERT [id number] Univers 19:02:00 22:40:00 CINDY ity of [facility] 2022-05-26 2022-05-26 Emergency Janene Taylor [facility] 1.2.840. 114 [id number] Univers 19:02:00 22:40:00 Cindy Akins [place] 350.1.13.10 ity of [place]2.7.[place] [id number] [facility] 084 Branch 2022-05-05 2022-05-05 Transition SHARON Araujo 1.2.840.114 [id number] Univers 00:00:00 00:00:00 of Care Henrietta WILSON 350.1.13.10 it[place] of [place] [id number] [facility] 403 Branch 2022-04-26 2022-05-04 Inpatient X AMELIE ALMEIDA [facility] [id number] Univers 16:01:00 12:18:00 AMELIE ALMEIDA ity [facility] 2022-04-26 2022-05-04 [facility] KarenkennyCharlotte [facility] 1.2.840.11 [id number] Univers 16:01:00 12:18:00 Encounter Amy Santana [facility] 350.1. 13.10 ity of [place] 4.2.7.2.686 [facility] [id number] Medical [address] ([facility]) 2022-04-28 2022-04-28 Anesthesia Gayle Lino 1.2.840.1 1 [id number] Univers 09:38:00 10:28:00 Event Radu Schroeder 40381.1.1 ity of 3.104.2.7 [place] .3.858825 Medica l .8 [place] 2022-04-28 2022-04-28 [facility] 1.2.840.114 [id number] Univers 09:30:00 10:01:00 Derrell Watters SPECIALTY 350.1.13.10 ity of CARE 4.2.7.2.686 [facility] AT [id number] [address] 2022-04-27 2022-04-27 Anesthesia Fawn Johnson 1.2.840.1 [id number] Univers 12:29:50 12:29:50 Event SanchezRaoulSabrina Angie 74770.1.1 ity of 3.104.2.7 [place] .3.383434 Medica l .8 [place] 2022-04-26 2022-04-26 Travel 1.2.840.1 1.2.813.818 [id number] Univers 00:00:00 00:00:00 78916.1.1 350.1.13.10 ity of 3.104.2.7 4.[place].7.3.698 [place] .3.500537 084.8 Medica l .8 [place] 2022-04-05 2022-04-05 Telephone Catrett, 1.2.840.9 [id number] Univers 00:00:00 00:00:00 Mitzy 93580.1.1 ity of 3.104.2.7 [place] .3.849412 Medica l .8 [place] 2022-04-02 2022-04-02 Office Sivakumar [facility] 1.2.840.114 [id number] Univers 11:45:00 11:45:00 Visit Negrito BRIONES 350.1.13.10 i ty of [place] 4.2.7.2.686 [place] PROFESSIO [id number] Or dical NAL [address] [facility] 2022-04-02 2022-04-02 Office Sivakumar, 1.2.840.8 [id number] Univers 11:45:00 11:45:00 Visit Negrito 00727.1.1 ity of [place] 3.104.2.7 [place] .3.953453 Medica l .8 Branch 2022-04-02 2022-04-02 Outpatient R SIVAKUMAR, [facility] [id number] Univers 11:45:00 11:33:03 NEGRITO ity of [facility] 2022-04-02 2022-04-02 Travel 1.2.840.1 1.2.558.947 [id number] Univers 00:00:00 00:00:00 98033.1.1 350.1.13.10 ity of 3.104.2.7 4.2.7.3.698 [place] .3.306004 084.8 Medica l .8 [place] 2022-03-24 2022-03-24 Telephone Zander Howe [facility] 1.2.840.114 [id number] Univers 00:00:00 00:00:00 Y HEALTH 350.1.13.10 i ty of CLINICS 4.2.7.2.[place] [id number] [facility] 185 [place] 2022-03-24 2022-03-24 Zander Mcguire 1.2.840.4 [id number] Univers 00:00:00 00:00:00 10095.1.1 ity of 3.104.2.7 [place] .3.541640 Medica l .8 [place] 2022-03-19 2022-03-19 Telephone Zander Howe 1.2.840.114 [id number] Univers 00:00:00 00:00:00 NAMRATA 350.1.13.10 it y of HOSPITAL 4.2.7.2.686 [place] as [id number] [facility] 037 Branch 2022-03-19 2022-03-19 Telephone Zander Howe 1.2.840.7 [id number] Univers 00:00:00 00:00:00 88275.1.1 ity of 3.104.2.7 [place] .3.509250 Medica l .8 [place] 2022-03-12 2022-03-12 Outpatient [facility] STEPHANIE [id number] Univers 08:13:00 16:20:00 NEGRITO ity of [facility] 2022-03-12 2022-03-12 Hospital [facility] 1.2.840.114 [id number] Univers 08:13:00 16:20:00 Encounter Negrito BRIONES 350.1.13.10 ity of [place] 4.2.7.2.[place] SUR[place]ICAL [id number] [facility] ical CENTER 071 [place] 2022-03-12 2022-03-12 Hospital Sivakumar, 1.2.840.4 [id number] Univers 08:13:00 16:20:00 Encounter Negrito 11951.1.1 it y of [place] 3.104.2.7 [place] .3.366966 Medica l .8 [place] 2022-03-12 2022-03-12 Anesthesia Carley Fregoso 1.2.840.1 [id number] Univers 09:44:00 12:14:00 Event MarquesRichard hunt 64746.1.1 ity of 3.104.2.7 [place] .3.392813 Medica l .8 [place] 2022-03-12 2022-03-12 Surgery [facility] 1.2.840.114 [id number] Univers 09:54:00 12:12:00 Negrito BRIONES 350.1.13.10 i ty of [place] 4.2.7.2.686 [place] SURGICAL [id number] Med ical CENTER 020 [place] 2022-03-12 2022-03-12 Surgery Mallory, 1.2.840.2 [id number] Univers 09:54:00 12:12:00 Negrito 85064.1.1 ity of [place] 3.104.2.7 [place] .3.860393 Medica l .8 [place] 2022-03-09 2022-03-09 Laboratory Only, Adc Test [facility] 1.2.840. 114 [id number] Univers 10:15:00 10:30:00 Only SivakumarNegrito ANALI 350.1.13 .10 ity of [place] 4.2.7.2.686 [facility] [id number] [facility] 353 [place] 2022-03-09 2022-03-09 Laboratory Negrito Shaver 1.2.840.5 [id number] Univers 10:15:00 10:30:00 Only Only, Adc Test 42797.1.1 ity of 3.104.2.7 [place] .3.592474 Medica l .8 [place] 2022-03-09 2022-03-09 Outpatient Lisa SHAVER [facility] [id number] Univers 10:15:00 10:15:00 NEGRITO aaron [facility] 2022-03-09 2022-03-09 Travel 1.2.840.1 1.2.434.651 [id number] Univers 00:00:00 00:00:00 73740.1.1 350.1.13.10 ity of 3.104.2.7 4.2.7.3.698 [place] .3.317067 084.8 Medica l .8 [place] 2022-03-05 2022-03-05 Outpatient Lisa SHAVER [facility] [id number] Univers 10:15:00 12:01:28 NEGRITO aaron [facility] 2022-03-05 2022-03-05 Office [facility] 1.2.840.114 [id number] Univers 10:15:00 12:01:28 Visit Negrito BRIONES 350.1.13.10 i ty of [place] 4.[address] [facility] [id number] Or dical NAL [address] [facility] 2022-03-05 2022-03-05 Outpatient [facility] [id number] Univers 10:15:00 12:01:28 NEGRITO aaron [facility] 2022-03-05 2022-03-05 Office Sivakumar, Lillian.2.840.0 [id number] Univers 10:15:00 12:01:28 Visit Negrito 48872.1.1 ity of [place] 3.104.2.7 [place] .3.172057 Medica l .8 [place] 2022-03-05 2022-03-05 Outpatient R SIVAKUMAR, [facility] [id number] Univers 10:15:00 10:15:00 NEGRITO ity of [facility] 2022-02-25 2022-02-25 Outpatient R ZANDER HOWE [facility] [id number] Univers 08:04:00 13:21:00 ity of [facility] 2022-02-25 2022-02-25 [facility] Zander Howe 1.2.840.114 [id number] Univers 08:04:00 13:21:00 Encounter NAMRATA 350.1.13.10 ity of [facility] 4.2.7.2.686 [place] as [id number] [facility] 104 [place] 2022-02-25 2022-02-25 Hospital Zander Howe 1.2.840.8 [id number] Univers 08:04:00 13:21:00 Encounter 97304.1.1 it y of 3.104.2.7 [place] .3.332773 Medica l .8 [place] 2022-02-25 2022-02-25 Surgery Zander Howe 1.2.183.032 [id number] Univers 09:35:00 12:45:00 NAMRATA 350.1.13.10 it y of [facility] 4.2.7.2.686 [place] as [id number] [facility] 103 [place] 2022-02-25 2022-02-25 Surgery Zander Howe 1.2.840.8 [id number] Univers 09:35:00 12:45:00 43170.1.1 ity of 3.104.2.7 [place] .3.730708 Medica l .8 [place] 2022-02-25 2022-02-25 Anesthesia Yung Arita 1.2.840.8 [id number] Univers 11:53:00 12:33:00 Event Francis Wong 69518.1.1 ity of 3.104.2.7 [place] .3.516197 Medica l .8 Branch 2022-02-24 2022-02-24 Travel 1.2.840.1 1.2.619.401 [id number] Univers 00:00:00 00:00:00 73333.1.1 350.1.13.10 ity of 3.104.2.7 4.2.7.3.698 [place] .3.078971 084.8 Medica l .8 [place] 2022-02-18 2022-02-18 Orders Doctor NEGRITO 1.2.840.114 [id number] Univers 00:00:00 00:00:00 Only Unassigned, NAMRATA 350.1.13.10 ity of [place] 4.2.7.2.686 [place] as [id number] [facility] 009 [place] 2022-02-18 2022-02-18 Orders Doctor 1.2.840.3 [id number] Univers 00:00:00 00:00:00 Only Unassigned, 34820.1.1 ity of [place] 3.104.2.7 [place] .3.913338 Medica l .8 [place] 2022-02-15 2022-02-15 Telephone TorranceNEGRITO 1.2.818.084 [id number] Univers 00:00:00 00:00:00 Stephanie TERESA 350.1.13.10 ity of HOSPITAL 4.2.7.2.686 [place] [id number] [facility] 037 [place] 2022-02-15 2022-02-15 Telephone [place] Yanira2.840.5 [id number] Univers 00:00:00 00:00:00 Stephanie L 69322.1.1 it y of 3.104.2.7 [place] .3.421927 Medica l .8 [place] 2022-02-09 2022-02-09 Telephone TorranceNEGRITO 1.2.894.012 [id number] Univers 00:00:00 00:00:00 Stephanie MCKENNAY 350.1.13.10 ity of HOSPITAL 4.2.7.2.686 [place] as [id number] [facility] 037 [place] 2022-02-09 2022-02-09 Telephone [place], 1.2.840.9 [id number] Univers 00:00:00 00:00:00 Stephanie Rose 46982.1.1 it y of 3.104.2.7 [place] .3.741947 Medica l .8 Branch 2022-02-08 2022-02-08 Case NEGRITO Galvez 1.2.840.114 [id number] Univers 00:00:00 00:00:00 Management Stephanie TERESA 350.1.13.10 ity of HOSPITAL 4.2.7.2.686 [place] as [id number] [facility] 037 [place] 2022-02-08 2022-02-08 Case Sade, 1.2.840.8 [id number] Univers 00:00:00 00:00:00 Management Stephanie Rose 44259.1.1 ity of 3.104.2.7 [place] .3.522080 Medica l .8 [place] 2022-02-04 2022-02-04 [facility] UNIVERSIT 1.2.840.114 [id number] Univers 15:17:56 23:59:00 Encounter Y HEALTH 350.1.13.10 ity of CLINICS 4.[place] [id number] [facility] 807 [place] 2022-02-04 2022-02-04 [facility] 1.2.840.2 [id number] Univers 15:17:56 23:59:00 Encounter 31153.1.1 it y of 3.104.2.7 [place] .3.908610 Medica l .8 [place] 2022-02-04 2022-02-04 Sterilizer Operator [facility] 1.2.840.9 [id number] Univers 15:30:00 15:47:42 Visit [facility] 77286.1.1 ity of 3.104.2.7 [place] .3.277107 Medica l .8 [place] 2022-02-04 2022-02-04 Sterilizer Operator [facility] UNIVERSIT 1.2.840.114 [id number] Univers 15:30:00 15:45:00 Visit [facility] 350.1.13.10 ity [place] [id number] [facility] [address] 2022-02-04 2022-02-04 Outpatient [facility] [id number] Univers 13:30:00 14:38:59 ity of [place] [facility] 2022-02-04 2022-02-04 Office Zander Howe UNIVERSIT 1.2.840.114 [id number] Univers 13:30:00 14:38:59 Visit Y HEALTH 350.1.13.10 i ty [place] [id number] [facility] [address] [place] 2022-02-04 2022-02-04 Outpatient R [facility]ER [facility] [id number] Univers 13:30:00 14:38:59 ity of [facility] 2022-02-04 2022-02-04 Office Zander Howe 1.2.840.3 [id number] Univers 13:30:00 14:38:59 Visit 19010.1.1 ity of 3.104.2.7 [place] .3.439294 Medica l .8 [place] 2022-02-04 2022-02-04 Travel 1.2.840.1 1.2.078.226 [id number] Univers 00:00:00 00:00:00 07860.1.1 350.1.13.10 ity of 3.104.2.[place].698 [place].801[place] 084.8 Medica l .8 [place] 2022-01-14 2022-01-14 Outpatient Lisa [facility] [id number] Univers 14:45:00 14:45:00 ity of [facility] 2021-12-31 2021-12-31 Outpatient [facility] [id number] Univers 15:45:00 15:45:00 ity of [facility] 2021-12-17 2021-12-17 Outpatient Lisa [facility] [id number] Univers 14:30:00 14:30:00 ity of [facility] 2021-11-14 2021-11-15 Outpatient X [facility] MAYI [id number] Univers 17:45:00 18:29:00 ADNAN ity [facility] 2021-11-14 2021-11-15 [facility] Nilo Guillaume [facility] 1.2.8 40.114 [id number] Univers 17:45:00 18:29:00 Encounter Dotty [place] 350.1.13.10 ity of [place] 4[place]7.2.686 [place] [facility] [phone] [place] [id number] [place] 2021-11-14 2021-11-15 Outpatient X [facility] MAYI [id number] Univers 17:45:00 18:29:00 ADNAN [facility] 2021-11-12 2021-11-12 Outpatient R ZANDER [facility] [id number] Univers 14:15:00 14:19:[facility] 2021-11-12 2021-11-12 Office Zander Howe UNIVERSIT 1.2.840.114 [id number] Univers 14:15:00 14:19:16 Visit Y HEALTH 350.1.13.10 i ty of CLIN[facility] 4.2.7.2.686 [facility] [phone] [facility] 185 [place] 2021-11-12 2021-11-12 Outpatient R [facility] [id number] Univers 14:15:00 14:19:16 [facility] 2021-11-02 2021-11-02 Emergency X [facility] ERT [id number] Univers 14:12:00 17:29:00 HARVEY ity [facility] 2021-11-02 2021-11-02 Emergency [facility] 1.2.408.177 [id number] Univers 14:12:00 17:29:00 Harvey Lisa HALERL 350.1.13.10 i ty of [facility] 4.2.7.2.686 [place] [facility] [phone] [facility] [address] 2021-09-22 2021-09-22 Imm/Inj Vaccine, [facility] B 1.2.840.114 [id number] Univers 12:00:25 12:10:25 Visit Thai Arita SPECIALTY 350.1.13.10 ity of [place].2.[place] [phone] Or stephanie Roe [facility] 2021-09-22 2021-09-22 Office Negrito [facility] 1.2.840.114 [id number] Univers 10:00:00 10:30:00 Visit Tyrone SPECIALTY 350.1.13.10 ity of [place] CARE 4.2.7.2.686 [place] as CENTER AT [phone] Or stephanie Roe [facility] 2021-09-22 2021-09-22 Outpatient R [facility] [id number] Univers 10:00:00 10:00:00 TYRONE ity of [facility] 2021-09-22 2021-09-22 Orders Doctor MAHAN 1.2.840.114 [id number] Univers 00:00:00 00:00:00 Only Unassigned, NAMRATA 350.1.13.10 ity of [place] [facility] 4.2.7.2.686 [place] [phone] [address] 2021-06-19 2021-06-19 Orders Doctor MAHAN 1.2.840.114 [id number] Univers 00:00:00 00:00:00 Only Unassigned, NAMRATA 350.1.13.10 ity of [place] [facility] 4.2.7.2.686 [place] [id number] [address] 2021-05-25 2021-05-26 Emergency Janene Taylor [facility] 1.2.840.114 [id number] 18:28:00 00:07:00 Misa Briones 350.1.13.10 [place] 4.2.7.2.686 [place] [id number] 084 2021-05-25 2021-05-25 Emergency X Janene [facility] ERT [id number] Univers 18:28:00 18:28:00 ity [facility] 2020-12-19 2020-12-19 Orders Doctor MAHAN 1.2.840.114 [id number] 00:00:00 00:00:00 Only Unassigned, NAMRATA 350.1.13.10 [place] 4.2.7.2.686 [phone] 009 2020-11-28 2020-11-28 Patient Sharon Bunn 1.2.840.114 [id number] 00:00:00 00:00:00 Outreach Micki Wilson 350.1.13.10 Daniel[place] 4.2.7.2.686 [id number] 2020-11-27 2020-11-27 Telephone Angie Aguilar 1.2.906.025 [id number] 00:00:00 00:00:00 Gianni Teresa 350.1.13.10 [place] [address].2.7.2.686 [id number] 093 2020-10-19 2020-11-23 Inpatient X [facility] MAYI [id number] Univers 02:37:00 19:15:00 HARVEY [facility] 2020-10-06 2020-10-06 Outpatient Jose, CHELSIECL LABO [id number] [facility] 23:33:00 23:33:00 [facility] 59 [facility] 2020-10-04 2020-10-04 Emergency X DA [facility] ERT 1 [id number] Univers 14:21:00 14:21:00 JERSEY RA[facility]atshevaKRISTIAN [facility] 2020-10-03 2020-10-03 Emergency X [facility] ERT [id number] Univers 21:22:00 21:22:00 ity [facility] 2020-10-02 2020-10-02 Emergency X [facility] ERT [id number] Univers 16:14:00 16:14:00 ity [facility] 2020-09-26 2020-09-26 Emergency X ROSANNA [facility] ERT [id number] Univers 09:58:00 09:58:00 GUSTAVO [facility] 2020-09-20 2020-09-20 Emergency X KERRY [facility] ERT [id number] Univers 13:37:00 13:37:00 IRAM [facility] 2020-08-23 2020-08-23 Emergency X [facility] ERT [id number] Univers 17:57:00 17:57:00 [facility] 2020-05-02 2020-05-02 Emergency X [facility] ERT [id number] Univers 02:13:00 02:13:00 [facility] Results Test Description Test Time Test Comments Results Result Comments Source POCT GLUCOSE (AUTOMATED) 2022-07-20 17:02:07 Test Item Value Reference Range Interpretation Comme nts POCT GLU (test code = 5054533532) 92 mg/dL 70-110 Lab Interpretation (test code = 78025-5) Normal [facility]2022-07-20 13:05:47 Test Item Value Reference Range Interpretation Comments POCT GLU (test code = 9932869770) 93 mg/dL 70-110 Lab Interpretation (test code = Normal 84959-3) [facility] GLUCOSE (AUTOMATED)2022-07-20 04:43:03 Test Item Value Reference Range Interpretation Comments POCT GLU (test code = 8575250939) 86 mg/dL 70-110 Lab Interpretation (test code = Normal 98006-6) [facility]2022-07-20 00:59:10 Test Item Value Reference Range Interpretation Comments POCT GLU (test code = 0349877619) 82 mg/dL 70-110 Lab Interpretation (test code = Normal 37919-3) [facility] GLUCOSE (AUTOMATED)2022-07-19 22:05:07 Test Item Value Reference Range Interpretation Comments POCT GLU (test code = 9393388319) 92 mg/dL 70-110 Lab Interpretation (test code = Normal 33377-0) [facility] GLUCOSE (AUTOMATED)2022-07-19 17:04:37 Test Item Value Reference Range Interpretation Comments POCT GLU (test code = 8254165178) 82 mg/dL 70-110 Lab Interpretation (test code = Normal 80857-9) [facility]2022-09-26 15:57:55 Test Item Value Reference Range Interpretation Comments PHOSPHORUS (test code = 2654773641) 1.9 mg/dL 2.5-5 L Lab Interpretation (test code = Abnormal 91206-9) [facility] WITH OFCE2930-36-27 14:58:38 Test Item Value Reference Range Interpretation Comments WBC (test code = See_Comment L [Automated 6690-2) message] The sy stem which [...] as normal/abnormal . HGB (test code = 7.4 g/dL 12.2-16.4 L 718-7) HCT (test code = 22.3 % 38.4-49.3 L 4544-3) MCV (test code = 88.5 fL 81.7-95.6 787-2) MCH (test code = 29.4 pg 26.1-32.7 785-6) MCHC (test code = 33.2 g/dL 31.2-35 786-4) RDW-SD (test code = 50.6 fL 38.5-51.6 95920-2) RDW-CV (test code = 15.6 % 12.1-15.4 H 788-0) PLT (test code = See_Comment [Automated 777-3) message] The sy stem which generated this result transmitted reference range : 150 - 328 10*3/ ?L. The reference r alisson was not used to interpret this result as normal/abnormal . MPV (test code = 12.4 fL 9.8-13 11844-4) NRBC/100 WBC (test See_Comment [Automat ed code = 0580145664) message] The system which generated this result transmitted reference range : 0.0 - 10.0 /100 WBCs. The refer ence range was not u sed to interpret th is result as normal/abnormal . NRBC x10^3 (test code See_Comment [Auto mated = 7908150029) message] The s ystem which generated this result transmitted reference range : 10*3/?L. The reference range was not used to interpret this result as normal/abnormal . GRAN MAT (NEUT) % 51.4 % (test code = 770-8) IMM GRAN % (test code 0.30 % = 4895769280) LYMPH % (test code = 37.0 % 736-9) MONO % (test code = 9.4 % 5905-5) EOS % (test code = 1.6 % 713-8) BASO % (test code = 0.3 % 706-2) GRAN MAT x10^3(ANC) 1.96 10*3/uL 1.99-6.95 L (test code = 4010991742) IMM GRAN x10^3 (test 0-0.06 code = 9201345269) LYMPH x10^3 (test code 1.41 10*3/uL 1.09-3.23 = 731-0) MONO x10^3 (test code 0.36 10*3/uL 0.36-1.02 = 742-7) EOS x10^3 (test code = 0.06 10*3/uL 0.06-0.53 711-2) BASO x10^3 (test code 0.01-0.09 = 704-7) ELLIPTO/OVAL (test 2+ See_Comment A [Automat ed code = 87793-2) message] The system which generated this result transmitted reference range : (none). The reference range was not used to interpret this result as normal/abnormal . REACT LYMPHS (test Rare code = 9248620678) GIANT PLATELETS (test Present See_Comment A [Auto mated code = 5908-9) message] The system which generated this result transmitted reference range : (none). The reference range was not used to interpret this result as normal/abnormal . Lab Interpretation Abnormal (test code = 39863-9) [facility]2022-07-19 12:58:00 Test Item Value Reference Range Interpretation Comments POCT GLU (test code = 8753045028) 93 mg/dL 70-110 Lab Interpretation (test code = Normal 14307-0) [facility] METABOLIC PANEL (NA, K, CL, CO2, GLUCOSE, BUN, CREATININE, CA)2022-07-19 11:17:35 Test Item Value Reference Range Interpretation Comments NA (test code = 136 mmol/L 135-145 0973246941) K (test code = 4.6 mmol/L 3.5-5 6049647789) CL (test code = 104 mmol/L 98-108 1060136019) CO2 TOTAL (test code = 29 mmol/L 23-31 1159461108) AGAP (test code = 2-16 7881591246) BUN (test code = 10 mg/dL 7-23 9906206859) GLUCOSE (test code = 82 mg/dL 70-110 5781453175) CREATININE (test code = 0.34 mg/dL 0.6-1.25 L 1429176220) CALCIUM (test code = 7.4 mg/dL 8.6-10.6 L 2375067570) eGFR (test code = mL/min/1.73m2 5622882482) LU (test code = LU) Association of [...] tests). Lab Interpretation Abnormal (test code = 01624-0) [facility] 09:13:05 Test Item Value Reference Range Interpretation Comments POCT GLU (test code = 9656758183) 94 mg/dL 70-110 Lab Interpretation (test code = Normal 11723-7) [facility] GLUCOSE (AUTOMATED)2022-07-19 06:14:35 Test Item Value Reference Range Interpretation Comments POCT GLU (test code = 7636730909) 82 mg/dL 70-110 Lab Interpretation (test code = Normal 64371-5) [facility] GLUCOSE (AUTOMATED)2022-07-19 02:01:34 Test Item Value Reference Range Interpretation Comments POCT GLU (test code = 7339818900) 90 mg/dL 70-110 Lab Interpretation (test code = Normal 43142-7) [facility] GLUCOSE (AUTOMATED)2022-07-18 21:21:09 Test Item Value Reference Range Interpretation Comments POCT GLU (test code = 5963800942) 84 mg/dL 70-110 Lab Interpretation (test code = Normal 76636-0) [facility] GLUCOSE (AUTOMATED)2022-07-18 16:34:48 Test Item Value Reference Range Interpretation Comments POCT GLU (test code = 7871384316) 79 mg/dL 70-110 Lab Interpretation (test code = Normal 61811-5) [facility] GLUCOSE (AUTOMATED)2022-07-18 13:16:05 Test Item Value Reference Range Interpretation Comments POCT GLU (test code = 5330147579) 81 mg/dL 70-110 Lab Interpretation (test code = Normal 35546-4) [facility] METABOLIC PANEL (NA, K, CL, CO2, GLUCOSE, BUN, CREATININE, CA)2022-07-18 11:18:39 Test Item Value Reference Range Interpretation Comments NA (test code = 136 mmol/L 135-145 4781427396) K (test code = 4.2 mmol/L 3.5-5 0159084983) CL (test code = 106 mmol/L 98-108 4957470596) CO2 TOTAL (test code = 31 mmol/L 23-31 9242523509) AGAP (test code = 2-16 L 2462193537) BUN (test code = 6 mg/dL 7-23 L 4387776587) GLUCOSE (test code = 87 mg/dL 70-110 5441894114) CREATININE (test code = 0.39 mg/dL 0.6-1.25 L 2279685455) CALCIUM (test code = 7.3 mg/dL 8.6-10.6 L 9443150914) eGFR (test code = mL/min/1.73m2 7418068756) LU (test code = LU) Association of [...] tests). Lab Interpretation Abnormal (test code = 05955-7) [facility]2022-[facility]-25 11:17:04 Test Item Value Reference Range Interpretation Comments MAGNESIUM (test code = 1369144769) 1.5 mg/dL 1.7-2.4 L Lab Interpretation (test code = Abnormal 41448-4) [facility]2022-09-25 11:16:44 Test Item Value Reference Range Interpretation Comments PHOSPHORUS (test code = 3475693416) 1.8 mg/dL 2.5-5 L Lab Interpretation (test code = Abnormal 27962-9) [facility] GLUCOSE (AUTOMATED)2022-07-18 10:10:02 Test Item Value Reference Range Interpretation Comments POCT GLU (test code = 2947380334) 92 mg/dL 70-110 Lab Interpretation (test code = Normal 14348-8) [facility] GLUCOSE (AUTOMATED)2022-07-18 06:20:53 Test Item Value Reference Range Interpretation Comments POCT GLU (test code = 5101951324) 84 mg/dL 70-110 Lab Interpretation (test code = Normal 79165-9) [facility] GLUCOSE (AUTOMATED)2022-07-18 01:45:08 Test Item Value Reference Range Interpretation Comments POCT GLU (test code = 7038495669) 76 mg/dL 70-110 Lab Interpretation (test code = Normal 07368-5) [facility] GLUCOSE (AUTOMATED)2022-07-17 21:42:53 Test Item Value Reference Range Interpretation Comments POCT GLU (test code = 1534186492) 81 mg/dL 70-110 Lab Interpretation (test code = Normal 02416-4) [facility] GLUCOSE (AUTOMATED)2022-07-17 21:42:48 Test Item Value Reference Range Interpretation Comments POCT GLU (test code = 9993081232) 81 mg/dL 70-110 Lab Interpretation (test code = Normal 88238-6) [facility] GLUCOSE (AUTOMATED)2022-07-17 16:49:36 Test Item Value Reference Range Interpretation Comments POCT GLU (test code = 5166628373) 90 mg/dL 70-110 Lab Interpretation (test code = Normal 11238-8) [facility] GLUCOSE (AUTOMATED)2022-07-17 13:06:55 Test Item Value Reference Range Interpretation Comments POCT GLU (test code = 6072046025) 80 mg/dL 70-110 Lab Interpretation (test code = Normal 16397-7) [facility] GLUCOSE (AUTOMATED)2022-07-17 05:27:10 Test Item Value Reference Range Interpretation Comments POCT GLU (test code = 5825511659) 84 mg/dL 70-110 Lab Interpretation (test code = Normal 87030-7) [facility] GLUCOSE (AUTOMATED)2022-07-17 01:14:31 Test Item Value Reference Range Interpretation Comments POCT GLU (test code = 8213675921) 69 mg/dL 70-110 L Lab Interpretation (test code = Abnormal 00912-6) [facility] GLUCOSE (AUTOMATED)2022-07-16 21:38:28 Test Item Value Reference Range Interpretation Comments POCT GLU (test code = 4695998230) 74 mg/dL 70-110 Lab Interpretation (test code = Normal 28593-9) [facility] GLUCOSE (AUTOMATED)2022-07-16 16:43:07 Test Item Value Reference Range Interpretation Comments POCT GLU (test code = 2976528441) 86 mg/dL 70-110 Lab Interpretation (test code = Normal 29696-9) [facility] GLUCOSE (AUTOMATED)2022-07-16 09:36:35 Test Item Value Reference Range Interpretation Comments POCT GLU (test code = 4078449398) 81 mg/dL 70-110 Lab Interpretation (test code = Normal 13634-1) [facility] GLUCOSE (AUTOMATED)2022-07-16 05:25:22 Test Item Value Reference Range Interpretation Comments POCT GLU (test code = 9299392070) 90 mg/dL 70-110 Lab Interpretation (test code = Normal 10963-8) [facility] GLUCOSE (AUTOMATED)2022-07-16 01:27:18 Test Item Value Reference Range Interpretation Comments POCT GLU (test code = 4096884396) 90 mg/dL 70-110 Lab Interpretation (test code = Normal 23764-9) [facility] GLUCOSE (AUTOMATED)2022-07-15 22:50:24 Test Item Value Reference Range Interpretation Comments POCT GLU (test code = 6385187063) 86 mg/dL 70-110 Lab Interpretation (test code = Normal 52071-2) [facility] GLUCOSE (AUTOMATED)2022-07-15 21:56:15 Test Item Value Reference Range Interpretation Comments POCT GLU (test code = 6142521101) 83 mg/dL 70-110 Lab Interpretation (test code = Normal 09388-1) [facility] GLUCOSE (AUTOMATED)2022-07-15 17:34:16 Test Item Value Reference Range Interpretation Comments POCT GLU (test code = 5574013774) 83 mg/dL 70-110 Lab Interpretation (test code = Normal 08304-5) [facility] GLUCOSE (AUTOMATED)2022-07-15 13:47:19 Test Item Value Reference Range Interpretation Comments POCT GLU (test code = 4971748629) 78 mg/dL 70-110 Lab Interpretation (test code = Normal 08968-6) [facility] GLUCOSE (AUTOMATED)2022-07-15 05:06:41 Test Item Value Reference Range Interpretation Comments POCT GLU (test code = 8954313771) 78 mg/dL 70-110 Lab Interpretation (test code = Normal 29095-5) [facility] GLUCOSE (AUTOMATED)2022-07-15 01:20:38 Test Item Value Reference Range Interpretation Comments POCT GLU (test code = 9086656092) 89 mg/dL 70-110 Lab Interpretation (test code = Normal 04375-0) [facility] GLUCOSE (AUTOMATED)2022-07-14 21:10:53 Test Item Value Reference Range Interpretation Comments POCT GLU (test code = 7532289731) 88 mg/dL 70-110 Lab Interpretation (test code = Normal 63415-0) [facility] IRON BINDING [id number] 20:58:10 Test Item Value Reference Range Interpretation Comments TIBC (test code = 4757972680) 91 ug/dL 250-410 L Lab Interpretation (test code = Abnormal 93437-3) [facility] GLUCOSE (AUTOMATED)2022-07-14 16:20:20 Test Item Value Reference Range Interpretation Comments POCT GLU (test code = 8902236708) 79 mg/dL 70-110 Lab Interpretation (test code = Normal 49501-9) [facility] GLUCOSE (AUTOMATED)2022-07-14 12:47:35 Test Item Value Reference Range Interpretation Comments POCT GLU (test code = 4420628883) 70 mg/dL 70-110 Lab Interpretation (test code = Normal 95505-6) [facility] GLUCOSE (AUTOMATED)2022-07-14 09:08:20 Test Item Value Reference Range Interpretation Comments POCT GLU (test code = 6621896820) 100 mg/dL 70-110 Lab Interpretation (test code = Normal 39651-7) [facility] GLUCOSE (AUTOMATED)2022-07-13 22:29:45 Test Item Value Reference Range Interpretation Comments POCT GLU (test code = 4666216436) 90 mg/dL 70-110 Lab Interpretation (test code = Normal 96105-2) [facility] [id number] 21:45:17 Test Item Value Reference Range Interpretation Comments Case Report (test code Surgical Pathology ? ? = [id number]) ?Case: [id number] ? Authorizing Provider: ?German Bowling MD ? Collected: ? 07/11/2022 1528 ?Ordering Location: ? ? [facility] ? ? ?Received: ?07/11/2022 1829 ? [facility] Center ?Pathologist: ? Laila Ybarra MD PhD ?Specimen: ? ?SMALL INTESTINE, stitch distal ? Final Diagnosis (test g2xtpIEpPKZoh5vuZOAptY code = 0892808258) FuZzEwMzNcZnRuYmpcdWMx IHtccnRmMVxlcGljMTAxMD OtPJ1qfRzgsPd3sTcxPDWj tiI0hLGkMIojy5vrETO0k7 hihabtEQGuXCjzEj1ymQIz kAveGhQuTINwNTb4dD50MW UakZ7fqZAdLJq6FJUvvVAz tuMbZrOjNRQazBEdcMW4OE SpEP8xqvcrLUevNFgoRXPu rfX2ULUnsGQgP8IiFCJrVU 6xkbnfLYE3BNlaLAKuILI7 FeGuOIQjj0Zslvf8OkLncJ FyZFxwbGFpblxmczIwXHBh ciBBLiBTTUFMTCBJTlRFU1 ENEyGdTCFOZ3KGBUiAYyyo cCAbWGBfPQIhHATGO17MKv INXEKEW0FAEW5KHnHCWaRP LofYXSTgT9zBPDYSYmIOP6 9GStIDTPlXVz8TYdOFRT1V PBEMVYRBFXXKX2iZFQTrHW BhciAgICAgICBTRUNPTkRB WlhmSW1rZF1MZWKRAIZAIB UNRG4NFGWiiaYgJUTzPJJY FRHODCKgCJZXU6gXIgTCIf NUSDVBG6AWI88gtMUgIRVh AZNmNJ9UHULHW6LWCGQSJU UKPpTBXYbIN16PImAFLXnN ONiGSG9VUQAZSSBuxQLoCM AjVEYkZACYPcJTFZ9PK62i NUzQNDjjCa2DVIDjUF7ZM5 DAUCVSJPSXFlDCHDuFB44S TkNZXHBhclxwYXJcZnMyMi BKdWFuIENhcmxvcyBBbHZh hlA1MX2pwvFoanixEMOfNP bgVmFyYvUtZrIzIrv7BuWA BKxwBYBkVgOuYZjlVJT5d8 xydGYxXHNzdGVjZjIyMDAw CTInq5ytEEAsgUVpKeZoTy NcZnRuYmpcdWMxXGRlZmYw a1jeb413uIBzg8frYVKhAt D2rNZgMJXjpWdpwsa7fAww OxGtRJRys3ewnhJsXnHkXF SgYOCiHZCssQSmK727GAUu XCvcm1pps4SzISMiwFYzx1 D4TWOMFQulQyRrF862w8nt o0xotbNcjLL3GHYeJJZ0CW dxdbFdsrD5JQncmRQdByO9 IDtccmVkMFxncmVlbjBcYm k4LJYaF338XTG5zMjnk0dk WNB1UWLeGKWxCttjLs6ysP PrP675HIDyGOEXBHEygLr2 KTJvbtXzxkNbyIFEr104X1 80u0wwEPZikkOplCwAvjog f7zgX305TBRhqENmeoVwIg JrQQUrwMFqbZP2MSZpUK4o xebgOCehZRhsEONpzjE7DF GbbTXoG2OwMHYtJE7fuwfb EDH0YElaNLZoYNF8DqReYK Eux6Rntdj8EfKfdy7igt68 MXW2w9LqaMqbZUQ9VVH6Rc NdLf7mmIRxFAPtQR2gUyHn uPKaXYFgcd39kAwiLNtscy BtpC5bKsSoLGXrkLEhIHXk WG5emTEiTWXdeT4zxalrYJ BnYnJkcmhlYWRccGdicmRy Yn5goMdhFZO3ZYacT2olbV 1pZrF4ATatO5fgoJ6qUWt6 NYrqtXO2AQIdjS7mTD7edp ihs6xiLDilIGzlEJYzllP3 jrX6XYEpgFLcS8XfbL0jCZ HqTW6ppubdx3csGGH8RDje QYDkPKV7UyBqXVBtx5Yklh u5OzPln3YhzMKxDTqfA67v s822WLSjiuRlE3kmxLOzbe mfbMCngmdtGGgdhkR9GOCi XHBsYWluXGYxXGZzMjBcbG FuZzEwMzNcaGljaFxmMVxk JxQdZGCbHIljD7dmIkOeC7 YyXGZzMjBccGFyIEkgaGF2 LRVeCLWpu68uhYr4ISYmkp gbl8ZzPLUvqPTinCEvjS3h kfPlx3dzUGHyTMUfRPBiI8 OaAPP4xBHoLWUmiRFckBT1 GE2ulsHjNA8uBAOuBdgbpe BivVVsinQkDVZmNZwhw8wm PT0kZZBjsIqwkP5ysCQ3EE Ofe2jdzLEtaVYdp5mel8Ga bmFtZShzKSBtYXkgYXBwZW DdQX1vYUAgfBMsdmFae9P8 CigdfONcfksxGhffpuT4IQ wpnfitDDMgADmpO1xqKcTr GNMnmGqlAfmsr5AlUIQgLI ZzMjhccGFyfX0= Clinical Information Small bowel (test code = obstruction 1870665814) Gross Description (test v7csmXNfJBAnaPTPDKMqUA code = 7222882395) UaMI8ehYvqiEg5mJyaSCNd coE0uDXjZBcxk7nwOJA8p9 llbiANClxkZWZmMVxwYXBl cxqzClN1FGbaODNneymdSB d7SDrySTFxiPV4IMNbgKMk Z7GcRODlAR7tuqu8YFJ3BE ylPXFwIhF6WCZaRzLuUqys KFm8FGTnlmM8Fbt7JWSpXP EzyXWzw4Y4MFlclqoiYIYz aEYwJ793FAi5QKLznY8kkT YpK6muYQIxMHyjLIQuDNad hZTxXCc2MAinn2ArmZOlMR pccGFyZCANCntcKlxlcGlj p2FnqMWvOMfnPAZbZBWzGB yfmlacBZb7PBImBJzgcFXm RP5klVdhFepizOfks9VomT BcXGlkIDUxMDAyIFxcZGIg LZ1YIjVqMPK9GWQ8HgBjEN m5AMn7KH4NGhTcAUAoYZWq EdJ4CBFnIXt7TFjxYN8ZFM K3Ehc5XLP2KPHlZSUmOvGp OTq4ZNQlNDcwQONghNEuGQ mmFeFnDMHuXGsqpWRxPS5j fVxwbGFpblxmczIwIFNQRU VDFDHOVJYjaWUyTB1SYNLh ZYxaHFLcjVKDNPF0TM0vCR ANClxsdHJwYXJcbGluMFxy tU8sDG8UBZp0wcOhQXCaSq YxX2OmY2pjQT4oDZAmvbHe YZFooAXwPEEkonEku6GhSE gphhtfyUZyTHmvDIR1lPGh ZIUnWIPgAZCdHI01Z9Jzmi FtZSwgVUggbnVtYmVyLCBh bmQgZGVzaWduYXRlZFxjZj GqXIk3BPNaHDHeHxoyp4Hr sOXrDHTay8RfzLc4VHXcRN IaCrx1CCghILIfBNFsN91b woTdz9Grq34ujCqiuW34DE Y8yO9xDQnpOW06QTQhWWny CMsfjbo7iBK7VOJpSNEokM PxvdJgvANwwV9kXCZrpbMw FAQkyUPbxGThHHP6LCZhR6 bzKI6dJDWqUUJtedlisyYn UUD4mPDuKMKkj9Y4oGOnPI W1BZEdXGOfaPT7SGndET3q GlWSeCFyKDIcluJvRPS7cL QqZONeacQnRB16ZK5uFXKj RKSes9tbxFR1SAyeGPPuEN OwwWXkke8fOSLvSDIttZU6 SLcxtYYpS4kkLWFiIQX0nD XbRRLzcfVmOLAoxB4iGPSx KN5rKJQyqz40wRv9OTMjrs VyZD1sVXEkv4DuVPjhuKxo gVZxk1VeeUHgSqNpNV3wMH PvUIQii93jbVjrVFBex1pf hVHiMVOgLP5nNEjlXXPfRQ CxzSUgQVnfYW9qIE0jHRP9 puPaWEFpFPovzF8iaiDrZi UjoNIye9UrRD8dORgulB0f lpigW0NqZ61pvoEubO5pVM mwVxE8qxLqPLOxYC8qOSFc JWEwRQN9cWCkkhRoHCmvpb IiKQRksv3pYWlzIO4xs4Ud dGVyeSBpcyBwYWxwYXRlZC Lgm9XnnVykBMRmp9PpJpbu VTv3rPLbTD5sVZWbF1NzJI ttBCMjzq3wC9IzVFFggXIb dK1taSbrPQHtzvGmmP5jrk ZzdmRjUESzNJxmJP32WX7m IFAzn9CpDQmcOgCqF65erU 1iyCDsU6CcXAtrBw4gPFVn LVDjZI3tiOOhXAIhuJRslI AcYCC1PQ4sVLSzvrUjMX6x WZ1wCI9iBYKicDcfSP02dS DwHTErPX5vLyKmwnHbBW21 QVAcxwFpi1RekOeoymAjFZ BaGPW9Sj5inIHfBGSzhkHD NL0APr0lxIAhYE9KMKTtfo HXWrLrHyFMADKyM8ewMEUa bWFsbCBmcmFnbWVudCBvZi Nae3npzFpbl9VfiXevGSUn GFXieW9wEEAbcExlWQp6MM BhciANCkEyLUEzOiBMYXJn THCnCMnlDY81HS7uMAXpf0 HeQLWcmw51gO4jhIPjVZUx uM0qWWAodEtwUFq9RHRigo GNFvK9UvQHNHWuTROnHHli YM30NE3mFZSqx7FlEETdbZ R6TTmdzKJwA6ciSMTqiiZf cmVseVxwYXIgDQpBNTogU2 RdoHahfpAbaRH9vRBfa3I8 dXJlZCBhcmVhIDQuMCBjbS Sadl9kUNVez1MpwNUkDHVh kS4vaYJuMC3YQQR9OIQxL9 Xbd83nj9AvhLSrCNkfmSNb GHYmPNZdb5BhKo57NIyqn4 NnqDFuMhDyDH8gEYBaFVPd g64rgUboCLRpe6eujCRaDH FeRUxiWSUjHPdTYpxpKA6y jnKsiEGlTMCgw3siqOW5SF ynCCKjtgYQAzX5StHVa60v oSpcoXeqvr7sVZIkAX6yaZ ZpoWSiOPS4aT0gTNyxFCVr AUdmgNViIR6FMNMvQSCIpI llZXNoYSBXaWxoZWxtLCBN RCANClxlcGljTmVzdERvYz IxqcB6ONVclOLxIUC8KK4g JERsvnejCBGbCIXrIXP8EO znbK65gTUuDDJeUEIqqIEx fOqiwKJgmqSGTrzibS4hJx Jag9hegYp1ZDXTLofdcYLc czjasxF0KXUud4fwsSjdw2 ZcaMRpEN7epPzjzL8rVeYn NiANCn0= Disclaimer (test code = r8czqWPhHRPzf0hfEIRpoB [id number]) FuZzEwMzNcZnRuYmpcdWMx JHfrrvHuWSsvu1NaX0UsXg AwMFxhbnNpXGRlZmxhbmcx PIItLZT1adOtFPIsTIjeDH LeQSojXf7srDZeoHkiGySt STWrf6gzboHDDGokUnQzM3 55AYElJFagq3slo8CfOBLt tQCpj1L4CDAJzutntGy9vM wsT21kp8J5AftpB7xtWVFt KAMaJ0OgRA4sHFHkPlw1DU G7MAH0CZOlPOTfS6GaLK6x TBLyzYWkSYr4o2nngWozLB XhAFP0d3xjLKhjfaSuMH5c ux5rnKd9n3qjlmCnADFkLC IriNGEKGXkB5KpgNhsMx4v eXz8iQjlBivyVMD6Tvk9JB 0you67uqd2kLvaKTCudzgc NhV8WIljPVHhsrspIId8JX xtFZBemOJ8THWzvYFsS4Rh JCEuMR0ebzp8KVV9ZQgkBV NxXtY2TUPorBRrOHAjiSza QDvdr170NPO4XvBxIH3lV5 Btz9Y6tK2tpVIuTMFrcTHf NaWvTLDvoe4crTVtZLjhc8 GhKZI8akQ4rPMjvZGxKOJf PD43Eicwd2NeHywei9IaN4 3rjAI6VTrhx8wsVV8rYxI1 ubQhFKcyg3jwbQ1jCzT7DL iuDS8pNV8wJNHizD1gsyqt XHBnYnJkcmhlYWRccGdicm DzSs4ahNcoPXS9EJjfI7ek lM8jQsU8MVhoN7qitA1xQZ q3LBddtYH1LGUhqZ0gBW6f iiyur1cxORgaPZmaGEUgnj F1iaP2GVKlcGVuS3AfbF7u YJGpPE1myldfa9ftOTY7YH ojIPGkDQV7WrVyNAOzd0Jf tsw3WsRjj0CtlQQaXIoeC3 7ox178LWMlcuDaH0bcjKTa obuxbSWzoenzWEeddyE3OY VdftHmv0YiQCUgHVL5EYnj QZchhUVdITDilHhsu0smG5 RscGFyXHBsYWluXGYxXGZz MjBcbGFuZzEwMzNcaGljaF zaVFjgJwSfITFkLBbpH9hl McAtP3ZpTWXkCoAbyZEjE6 ggVGhpcyByZXBvcnQgbWF5 GVxmG5r9DASplrXukVx8lk VoBwBoJZGaMDI3IXemcVFy QFAae1SrtannkYQwNo1koZ BzQSDmxI1cTEWgELSkISrk GT9hfYb7GXTDzQGfmOBsUg DMZDFhSG40giSaGADLfcem s0N8DAshWKWqb9UqaZNuM4 fbp2IkZWVdy96pDX0pu6X7 p3veWRY5AT6uu3DoYGIkyX SipALaVPKuh4Ciwtswa3Rb ZSGhugNfl2MfHJUlqlBtiN UpYSRvquHgba6xqcKmUHMu KOWpL7GcbbemkSsbkoYvOR Qgee7bzoBfFVY0GQYTEQUi OCVyb3UctO6qgHTUDML2wP Ppyb6telRVeIEoTAFunu65 HFHxRY8vK8weOVKdLUMmnb FykIIsh0JxAZYumZR7hGYf WH3ITmHWu28pFLIzBWBXlj CpNGWqqJmtiFQ1vfO0nK4p IChGREEpLlx+IFRoZSBGRE EyYU5mshLgn1YltaDfxUuv POKpdMPes1RxjZTim2CzfD zul7BsaOKgqRYpDZ2qBDFv clxwYXIgVVRNQiBMYWJvcm C5k7ImYLZbTFOgFGN7bNvl ric3XGRmkY7nOYBoY6oxxe fmQGcqKUFae5CheW8hnXBT yXKve3JvcITmkWPGxMDcOH 1stzKwCMlEWYkCCEO1vfMu ZUBul2TpDGltM1oxF22pqS kquQa1eFM5SNQ9lX7zWlr+ IFxwYXJccGFyIEFwcHJvcH PaTTZxzXordfMnG3ItogCp gL4sdKAcfmTcKI0eTT6vB7 H7aRXnZKDrwmKyx6rqPCxj dmUgYmVlbiByZXZpZXdlZC Sel5SgEBrlBQO2REglooJi bmNsdWRpbmcgSCZFLCBTcG VfcEEfVDZ2CFlcsuSabrYf QX7geW7igSjygA5ffMEhcD I6hocfPEVpFMTyjOefHSNi KB6xdFYyXGTlfpMHiGevnK VilP2fX7IyKMUeHOHjwr5f ZMHwdX4mOIeed2EqbmupCX PvKSDkGKIxrjYusj1pMNQt rJTFMI8FJSrsfBAir2Frwv JfW8yRLCH2YTEqUbBgHkot KFIzhGYycVQyYMZffx38WM EjkU0twQpcQFGudY2tuQ7d uCxkdD2gEuXuQjNjSSgyBF 2yZSGnZ3nqoCYuXQHnUGYo T7cgKkFqnL7trIhxGWzvYi HkIcHqIXknYRB0iP== Embedded Images (test code = 2145644200) [facility] GLUCOSE (AUTOMATED)2022-07-13 21:03:47 Test Item Value Reference Range Interpretation Comments POCT GLU (test code = 1073407077) 57 mg/dL 70-110 L Lab Interpretation (test code = Abnormal 55222-1) [facility] 16:38[facility]36 Test Item Value Reference Range Interpretation Comments PALB (test code = 02554-2) 4.1 mg/dL 18-45 L Lab Interpretation (test code = Abnormal 71038-9) [facility] GLUCOSE (AUTOMATED)2022-07-13 15:52:08 Test Item Value Reference Range Interpretation Comments POCT GLU (test code = 2991104356) 167 mg/dL 70-110 H Lab Interpretation (test code = Abnormal 18088-9) [facility] GLUCOSE (AUTOMATED)2022-07-13 15:18:37 Test Item Value Reference Range Interpretation Comments POCT GLU (test code = 3236506025) 160 mg/dL 70-110 H Lab Interpretation (test code = Abnormal 11601-9) [facility] WITH [id number] 15:11:15 Test Item Value Reference Range Interpretation Comments WBC (test code = See_Comment [Automated message] 6690-2) The system [employer] generated this result transmitted ref erence range: 4.20 - 1 0.70 10*3/?L. The reference range was not used to int erpret this result as normal/abnormal . RBC (test code = See_Comment L [Automated message] 789-8) The system [employer] generated this result transmitted ref erence range: 4.26 - 5 .52 10*6/?L. The reference range was not used to int erpret this result as normal/abnormal . HGB (test code = 8.5 g/dL 12.2-16.4 L 718-7) HCT (test code = 26.7 % 38.4-49.3 L 4544-3) MCV (test code = 90.5 fL 81.7-95.6 787-2) MCH (test code = 28.8 pg 26.1-32.7 785-6) MCHC (test code = 31.8 g/dL 31.2-35 786-4) RDW-SD (test code = 56.9 fL 38.5-51.6 H 50619-0) RDW-CV (test code = 17.2 % 12.1-15.4 H 788-0) PLT (test code = See_Comment [Automated message] 777-3) The system [employer] generated this result transmitted ref erence range: 150 - 32 8 10*3/?L. The reference range was not used to int erpret this result as normal/abnormal . MPV (test code = 11.3 fL 9.8-13 94241-3) NRBC/100 WBC (test See_Comment [Automat ed message] code = 5593195483) The [employer] which generated this result transmitted ref erence range: 0.0 - 10 .0 /100 WBCs. The reference range was not used to int erpret this result as normal/abnormal . NRBC x10^3 (test See_Comment [Automated message] code = 2223053019) The [employer] which generated this result transmitted ref erence range: 10*3/?L. The reference range was not used to int erpret this result as normal/abnormal . GRAN MAT (NEUT) % 75.1 % (test code = 770-8) IMM GRAN % (test 0.40 % code = 7493147167) LYMPH % (test code = 18.0 % 736-9) MONO % (test code = 5.1 % 5905-5) EOS % (test code = 1.3 % 713-8) BASO % (test code = 0.1 % 706-2) GRAN MAT x10^3(ANC) 5.26 10*3/uL 1.99-6.95 (test code = 1532633964) IMM GRAN x10^3 (test 0.03 10*3/uL 0-0.06 code = 5779622045) LYMPH x10^3 (test 1.26 10*3/uL 1.09-3.23 code = 731-0) MONO x10^3 (test 0.36 10*3/uL 0.36-1.02 code = 742-7) EOS x10^3 (test code 0.09 10*3/uL 0.06-0.53 = 711-2) BASO x10^3 (test 0.01-0.09 code = 704-7) ELLIPTO/OVAL (test 2+ See_Comment A [Automat ed message] code = 76541-5) The system [employer] generated this result transmitted ref erence range: (none). The reference range was not used to int erpret this result as normal/abnormal . HGB C CRYSTALS (test Suggestive of Red bl ood cell code = 7439059159) morpholog y suggestive of Hemoglobin C crystals. Hemog lobin electrophoresis recommended for confirmation. SCHISTOCYTES (test 1+ A code = 800-3) TARGET CELLS (test 2+ See_Comment A [Automat ed message] code = 47271-8) The system [employer] generated this result transmitted ref erence range: (none). The reference range was not used to int erpret this result as normal/abnormal . BANDS (test code = Increased A 4769722458) DOHLE BODIES (test Present A code = 7792-5) Lab Interpretation Abnormal (test code = 55751-7) [facility]-07-13 15:03:40 Test Item Value Reference Range Interpretation Comments POCT GLU (test code = 7087679839) 34 mg/dL 70-110 LL Lab Interpretation (test code = Abnormal 33315-7) [facility] (NA, K, CL, CO2, GLUCOSE, BUN, CREATININE, CA)2022-07-13 14:55:02 Test Item Value Reference Range Interpretation Comments NA (test code = 151 mmol/L 135-145 H 5421775351) K (test code = 3.0 mmol/L 3.5-5 L 3886810951) CL (test code = 120 mmol/L 98-108 H 7168809643) CO2 TOTAL (test code = 26 mmol/L 23-31 5772464152) AGAP (test code = 2-16 6696729404) BUN (test code = 17 mg/dL 7-23 5728219395) GLUCOSE (test code = 34 mg/dL 70-110 LL 7988142934) CREATININE (test code = 0.76 mg/dL 0.6-1.25 8065441242) CALCIUM (test code = 7.8 mg/dL 8.6-10.6 L 0595286053) eGFR (test code = mL/min/1.73m2 8925599897) LU (test code = LU) Association of [...] tests). Lab Interpretation Abnormal (test code = 57975-0) [facility] 14:49:59 Test Item Value Reference Range Interpretation Comments MAGNESIUM (test code = 8673991387) 2.1 mg/dL 1.7-2.4 Lab Interpretation (test code = Normal 23374-4) [facility] 14:49:59 Test Item Value Reference Range Interpretation Comments PHOSPHORUS (test code = 9277266167) 2.7 mg/dL 2.5-5 Lab Interpretation (test code = Normal 72111-1) [facility] 22:45:16 Test Item Value Reference Range Interpretation Comments PALB (test code = 59875-3) 5.1 mg/dL 18-45 L Lab Interpretation (test code = Abnormal 13818-9) [facility] + Lactic [id number] 20:56:10 Test Item Value Reference Range Interpretation Comments PH (test code = 2) 7.35-7.45 L PCO2 (test code = See_Comment H [Automate d 2823030837) message] The sy [employer] which generated this result transmitted reference range : 35 - 45 mmHg. The reference range was not used to interpret this result as normal/abnormal . PO2 (test code = See_Comment H [Automated 8830473579) message] The sy [employer] which generated this result transmitted reference range : 80 - 100 mmHg. The reference range was not used to interpret this result as normal/abnormal . HCO3 (test code = See_Comment [Automate d 1082267073) message] The sy stem which generated this result transmitted reference range : 22 - 26 mEq/L. The reference range was not used to interpret this result as normal/abnormal . BE (test code = See_Comment L [Automated 3326963727) message] The sy stem which generated this result transmitted reference range : -3.0 - 3.0 mEq/ L. The reference r alisson was not used to interpret this result as normal/abnormal . THB (test code = 8.0 g/dL 13.5-18 LL 5282818674) %O2HB (test code = 96.3 % 94-99 6504725061) %COHB ART (test code = 0.5 % 0-1.5 7638884949) %METHB ART (test code = 0.3 % 0.4-1.5 L 3593535732) VOL%O2 ART (test code = 11.1 % 15-23 L 7308283621) NA (test code = 145 mmol/L 135-145 7098732099) K+ (test code = 3.6 mmol/L 3.5-5 6662052287) AC CA IONZ (test code = 5.30 mg/dL 4.5-5.3 8286488043) GLUCOSE (test code = 163 mg/dL 70-110 H 6860421102) LACTIC ACID (test code 0.49 mmol/L 0.5-2.2 L = 3810494962) Lab Interpretation Abnormal (test code = 35952-3) [facility] + Lactic [id number] 20:56:10 Test Item Value Reference Range Interpretation Comments PH (test code = 2) 7.35-7.45 L PCO2 (test code = See_Comment H [Automate d 1940748063) message] The sy stem which generated this result transmitted reference range : 35 - 45 mmHg. The reference range was not used to interpret this result as normal/abnormal . PO2 (test code = See_Comment H [Automated 3931514975) message] The sy stem which generated this result transmitted reference range : 80 - 100 mmHg. The reference range was not used to interpret this result as normal/abnormal . HCO3 (test code = See_Comment [Automate d 8497571888) message] The sy stem which generated this result transmitted reference range : 22 - 26 mEq/L. The reference range was not used to interpret this result as normal/abnormal . BE (test code = See_Comment L [Automated 5818360398) message] The sy stem which generated this result transmitted reference range : -3.0 - 3.0 mEq/ L. The reference r alisson was not used to interpret this result as normal/abnormal . THB (test code = 8.0 g/dL 13.5-18 LL 4730542845) %O2HB (test code = 96.3 % 94-99 5992561868) %COHB ART (test code = 0.5 % 0-1.5 8460550756) %METHB ART (test code = 0.3 % 0.4-1.5 L 1407978474) VOL%O2 ART (test code = 11.1 % 15-23 L 8405247747) NA (test code = 145 mmol/L 135-145 2989205742) K+ (test code = 3.6 mmol/L 3.5-5 9896821296) AC CA IONZ (test code = 5.30 mg/dL 4.5-5.3 7167819038) GLUCOSE (test code = 163 mg/dL 70-110 H 3104971103) LACTIC ACID (test code 0.49 mmol/L 0.5-2.2 L = 7668404973) Lab Interpretation Abnormal (test code = 66778-1) [id number] 16:12:23 Test Item Value Reference Range Interpretation Comments LACTIC ACID (test code = 1.23 mmol/L 0.5-2.2 1487374094) Lab Interpretation (test code = Normal 07218-3[id number] 16:12:23 Test Item Value Reference Range Interpretation Comments LACTIC ACID (test code = 1.23 mmol/L 0.5-2.2 7092351367) Lab Interpretation (test code = Normal 85567-3) [facility]. METABOLIC PANEL ([id number])2022-07-10 00:41:51 Test Item Value Reference Range Interpretation Comments NA (test code = 137 mmol/L 135-145 0202377299) K (test code = 2.6 mmol/L 3.5-5 LL 7996071716) CL (test code = 93 mmol/L 98-108 L 9631749569) CO2 TOTAL (test code = 31 mmol/L 23-31 9526629699) AGAP (test code = 2-16 7333295144) BUN (test code = 28 mg/dL 7-23 H 0439020616) GLUCOSE (test code = 140 mg/dL 70-110 H 3156185773) CREATININE (test code = 2.04 mg/dL 0.6-1.25 H 1194756813) TOTAL BILI (test code = 0.6 mg/dL 0.1-1.5 5999449031) CALCIUM (test code = 7.6 mg/dL 8.6-10.6 L 4150347162) T PROTEIN (test code = 7.3 g/dL 6.3-8.2 5589373243) ALBUMIN (test code = 3.2 g/dL 3.5-5 L 1756436509) ALK PHOS (test code = 146 U/L 34-122 H 0464450910) ALTv (test code = 13 U/L 5-50 1742-6) AST(SGOT) (test code = 17 U/L 13-40 9879096830) eGFR (test code = mL/min/1.73m2 6625382567) LU (test code = LU) Association of [...] tests). Lab Interpretation Abnormal (test code = 84016-3) [facility]. METABOLIC PANEL (12739)2022-07-10 00:41:51 Test Item Value Reference Range Interpretation Comments NA (test code = 137 mmol/L 135-145 7092279883) K (test code = 2.6 mmol/L 3.5-5 LL 0309056444) CL (test code = 93 mmol/L 98-108 L 1407224509) CO2 TOTAL (test code = 31 mmol/L 23-31 8443137126) AGAP (test code = 2-16 2519392294) BUN (test code = 28 mg/dL 7-23 H 8689118043) GLUCOSE (test code = 140 mg/dL 70-110 H 2863063964) CREATININE (test code = 2.04 mg/dL 0.6-1.25 H 9503137576) TOTAL BILI (test code = 0.6 mg/dL 0.1-1.6 9580858259) CALCIUM (test code = 7.6 mg/dL 8.6-10.6 L 2324273448) T PROTEIN (test code = 7.3 g/dL 6.3-8.2 5774262969) ALBUMIN (test code = 3.2 g/dL 3.5-5 L 8235821462) ALK PHOS (test code = 146 U/L 34-122 H 0168509846) ALTv (test code = 13 U/L 5-50 1742-6) AST(SGOT) (test code = 17 U/L 13-40 5655678770) eGFR (test code = mL/min/1.73m2 3147214776) LU (test code = LU) Association of [...] tests). Lab Interpretation Abnormal (test code = 87262-5) [facility] 00:33:02 Test Item Value Reference Range Interpretation Comments MAGNESIUM (test code = 7104848295) 2.3 mg/dL 1.7-2.4 Lab Interpretation (test code = Normal 82048-7) [facility] Test Item Value Reference Range Interpretation Comments MAGNESIUM (test code = 0733694135) 2.3 mg/dL 1.7-2.4 Lab Interpretation (test code = Normal 90339-0) [facility] 00:32:22 Test Item Value Reference Range Interpretation Comments LIPASE (test code = 4727953375) 18 U/L 0-220 Lab Interpretation (test code = Normal 54269-4) [facility] 00:32:22 Test Item Value Reference Range Interpretation Comments LIPASE (test code = 2713563400) 18 U/L 0-220 Lab Interpretation (test code = Normal 48872-8) [facility] WITH [id number] 00:18:00 Test Item Value Reference Range Interpretation Comments WBC (test code = See_Comment H [Automated 6690-2) message] The system which generated this result transmit annette reference range : 4.20 - 10.70 10*3/?L. The reference range was not used to interpret this result as normal/abnormal . RBC (test code = See_Comment [Automated 789-8) message] The system which generated this result transmit annette reference range : 4.26 - 5.52 10*6/?L. The reference range was not used to interpret this result as normal/abnormal . HGB (test code = 14.2 g/dL 12.2-16.4 718-7) HCT (test code = 40.7 % 38.4-49.3 4544-3) MCV (test code = 83.9 fL 81.7-95.6 787-2) MCH (test code = 29.3 pg 26.1-32.7 785-6) MCHC (test code = 34.9 g/dL 31.2-35 786-4) RDW-SD (test code = 47.0 fL 38.5-51.6 45258-3) RDW-CV (test code = 15.4 % 12.1-15.4 788-0) PLT (test code = See_Comment H [Automated 777-3) message] The system which generated this result transmit annette reference range : 150 - 328 10*3/ ?L. The reference range was not u sed to interpret th is result as normal/abnormal . MPV (test code = 10.7 fL 9.8-13 50597-4) NRBC/100 WBC (test See_Comment [Automat ed code = 2293824896) message] The system which generated this result transmit annette reference range : 0.0 - 10.0 /100 WBCs. The reference range was not used to interpret this result as normal/abnormal . NRBC x10^3 (test code See_Comment [Auto mated = 9592768394) message] The system which generated this result transmit annette reference range : 10*3/?L. The reference range was not used to interpret this result as normal/abnormal . GRAN MAT (NEUT) % 83.3 % (test code = 770-8) IMM GRAN % (test code 0.50 % = 4065795377) LYMPH % (test code = 10.1 % 736-9) MONO % (test code = 5.9 % 5905-5) EOS % (test code = 0.0 % 713-8) BASO % (test code = 0.2 % 706-2) GRAN MAT x10^3(ANC) 10.78 10*3/uL 1.99-6.95 H (test code = 5424665608) IMM GRAN x10^3 (test 0.06 10*3/uL 0-0.06 code = 0758416024) LYMPH x10^3 (test code 1.31 10*3/uL 1.09-3.23 = 731-0) MONO x10^3 (test code 0.76 10*3/uL 0.36-1.02 = 742-7) EOS x10^3 (test code = 0.06-0.53 L 711-2) BASO x10^3 (test code 0.01-0.09 = 704-7) Lab Interpretation Abnormal (test code = 63325-0) [facility] WITH [id number] 00:18:00 Test Item Value Reference Range Interpretation Comments WBC (test code = See_Comment H [Automated 5590-2) message] The system which generated this result transmit annette reference range : 4.20 - 10.70 10*3/?L. The reference range was not used to interpret this result as normal/abnormal . RBC (test code = See_Comment [Automated 149-8) message] The system which generated this result transmit annette reference range : 4.26 - 5.52 10*6/?L. The reference range was not used to interpret this result as normal/abnormal . HGB (test code = 14.2 g/dL 12.2-16.4 718-7) HCT (test code = 40.7 % 38.4-49.3 4544-3) MCV (test code = 83.9 fL 81.7-95.6 787-2) MCH (test code = 29.3 pg 26.1-32.7 785-6) MCHC (test code = 34.9 g/dL 31.2-35 786-4) RDW-SD (test code = 47.0 fL 38.5-51.6 67141-4) RDW-CV (test code = 15.4 % 12.1-15.4 788-0) PLT (test code = See_Comment H [Automated 777-3) message] The system which generated this result transmit annette reference range : 150 - 328 10*3/ ?L. The reference range was not u sed to interpret th is result as normal/abnormal . MPV (test code = 10.7 fL 9.8-13 60731-3) NRBC/100 WBC (test See_Comment [Automat ed code = 3954631783) message] The system which generated this result transmit annette reference range : 0.0 - 10.0 /100 WBCs. The reference range was not used to interpret this result as normal/abnormal . NRBC x10^3 (test code See_Comment [Auto mated = 1706555395) message] The system which generated this result transmit annette reference range : 10*3/?L. The reference range was not used to interpret this result as normal/abnormal . GRAN MAT (NEUT) % 83.3 % (test code = 770-8) IMM GRAN % (test code 0.50 % = 7902456466) LYMPH % (test code = 10.1 % 736-9) MONO % (test code = 5.9 % 5905-5) EOS % (test code = 0.0 % 713-8) BASO % (test code = 0.2 % 706-2) GRAN MAT x10^3(ANC) 10.78 10*3/uL 1.99-6.95 H (test code = 1137765864) IMM GRAN x10^3 (test 0.06 10*3/uL 0-0.06 code = 6872146944) LYMPH x10^3 (test code 1.31 10*3/uL 1.09-3.23 = 731-0) MONO x10^3 (test code 0.76 10*3/uL 0.36-1.02 = 742-7) EOS x10^3 (test code = 0.06-0.53 L 711-2) BASO x10^3 (test code 0.01-0.09 = 704-7) Lab Interpretation Abnormal (test code = 73762-7) [facility]. METABOLIC PANEL ([id number])2022-05-27 01:04:32 Test Item Value Reference Range Interpretation Comments NA (test code = 135 mmol/L 135-145 2804574686) K (test code = 2.3 mmol/L 3.5-5 LL 6326198144) CL (test code = 102 mmol/L 98-108 3449666532) CO2 TOTAL (test code = 21 mmol/L 23-31 L 4430294330) AGAP (test code = 2-16 1324865778) BUN (test code = 5 mg/dL 7-23 L 9262368650) GLUCOSE (test code = 142 mg/dL 70-110 H 5712250779) CREATININE (test code = 0.68 mg/dL 0.6-1.25 1231561025) TOTAL BILI (test code = 0.6 mg/dL 0.1-1.8 7419739937) CALCIUM (test code = 7.9 mg/dL 8.6-10.6 L 1128267890) T PROTEIN (test code = 7.3 g/dL 6.3-8.2 7387564032) ALBUMIN (test code = 3.2 g/dL 3.5-5 L 9242755103) ALK PHOS (test code = 100 U/L 34-122 9405562907) ALTv (test code = 13 U/L 5-50 1742-6) AST(SGOT) (test code = 17 U/L 13-40 0538706161) eGFR (test code = mL/min/1.73m2 9138826737) LU (test code = LU) Association of [...] tests). Lab Interpretation Abnormal (test code = 95606-2) [facility] WITH [id number] 00:45:16 Test Item Value Reference Range Interpretation Comments WBC (test code = See_Comment [Automated 2043-2) message] The sy stem which generated this result transmitted reference range : 4.20 - 10.70 10*3/?L. The reference range was not used to interpret this result as normal/abnormal . RBC (test code = See_Comment L [Automated 839-8) message] The sy stem which generated this [...] RDW-SD (test code = 49.6 fL 38.5-51.6 40580-8) RDW-CV (test code = 15.1 % 12.1-15.4 788-0) PLT (test code = See_Comment [Automated 057-3) message] The sy stem which generated this result transmitted reference range : 150 - 328 10*3/ ?L. The reference r alisson was not used to interpret this result as normal/abnormal . MPV (test code = 11.2 fL 9.8-13 26213-9) NRBC/100 WBC (test See_Comment [Automat ed code = [id number]) message] The system which generated this result transmitted reference range : 0.0 - 10.0 /100 WBCs. The refer ence range was not u sed to interpret th is result as normal/abnormal . NRBC x10^3 (test code See_Comment [Auto mated = 5666172538) message] The s ystem which generated this result transmitted reference range : 10*3/?L. The reference range was not used to interpret this result as normal/abnormal . GRAN MAT (NEUT) % 72.3 % (test code = 770-8) IMM GRAN % (test code 0.20 % = 5931894039) LYMPH % (test code = 19.9 % 736-9) MONO % (test code = 6.3 % 5905-5) EOS % (test code = 1.0 % 713-8) BASO % (test code = 0.3 % 706-2) GRAN MAT x10^3(ANC) 6.43 10*3/uL 1.99-6.95 (test code = 3864614298) IMM GRAN x10^3 (test 0-0.06 code = 9293868976) LYMPH x10^3 (test code 1.77 10*3/uL 1.09-3.23 = 731-0) MONO x10^3 (test code 0.56 10*3/uL 0.36-1.02 = 742-7) EOS x10^3 (test code = 0.09 10*3/uL 0.06-0.53 711-2) BASO x10^3 (test code 0.03 10*3/uL 0.01-0.09 = 704-7) Lab Interpretation Abnormal (test code = 89848-8) [facility] METABOLIC PANEL (NA, K, CL, CO2, GLUCOSE, BUN, CREATININE, CA)2022-04-29 10:41:04 Test Item Value Reference Range Interpretation Comments NA (test code = 141 mmol/L 135-145 9226539516) K (test code = 4.1 mmol/L 3.5-5 0063301507) CL (test code = 113 mmol/L 98-108 H 4464885182) CO2 TOTAL (test code = 26 mmol/L 23-31 1553022490) AGAP (test code = 2-16 7793768085) BUN (test code = 2 mg/dL 7-23 L 5509778382) GLUCOSE (test code = 77 mg/dL 70-110 6612520158) CREATININE (test code = 0.43 mg/dL 0.6-1.25 L 6193422778) CALCIUM (test code = 7.5 mg/dL 8.6-10.6 L 8616839864) eGFR (test code = mL/min/1.73m2 7930216056) LU (test code = LU) Association of [...] tests). Lab Interpretation Abnormal (test code = 27540-0) [facility] (NA, K, CL, CO2, GLUCOSE, BUN, CREATININE, CA)2022-04-29 10:41:04 Test Item Value Reference Range Interpretation Comments NA (test code = 141 mmol/L 135-145 0609208611) K (test code = 4.1 mmol/L 3.5-5.0 4165762239) CL (test code = 113 mmol/L 98-108 H 5928052078) CO2 TOTAL (test code = 26 mmol/L 23-31 8417638476) AGAP (test code = 2-16 1493726362) BUN (test code = 2 mg/dL 7-23 L 7150131671) GLUCOSE (test code = 77 mg/dL 70-110 1463522148) CREATININE (test code = 0.43 mg/dL 0.60-1.25 L 9233349802) CALCIUM (test code = 7.5 mg/dL 8.6-10.6 L 7408660481) eGFR (test code = mL/min/1.73m2 8503239773) LU (test code = LU) Association of [...] tests). Lab Interpretation Abnormal (test code = 43496-8) [facility] Test Item Value Reference Range Interpretation Comments MAGNESIUM (test code = 0288970945) 1.7 mg/dL 1.7-2.4 Lab Interpretation (test code = Normal 83277-9) [facility] Test Item Value Reference Range Interpretation Comments MAGNESIUM (test code = 0840964109) 1.7 mg/dL 1.7-2.4 Lab Interpretation (test code = Normal 00129-6) [facility] (NA, K, CL, CO2, GLUCOSE, BUN, CREATININE, CA)2022-04-28 17:52:13 Test Item Value Reference Range Interpretation Comments NA (test code = 142 mmol/L 135-145 6387677341) K (test code = 2.6 mmol/L 3.5-5 LL 0293394382) CL (test code = 109 mmol/L 98-108 H 9859092251) CO2 TOTAL (test code = 26 mmol/L 23-31 4234537569) AGAP (test code = 2-16 2530424117) BUN (test code = 3 mg/dL 7-23 L 7569345961) GLUCOSE (test code = 95 mg/dL 70-110 9980232698) CREATININE (test code = 0.57 mg/dL 0.6-1.25 L 6985376022) CALCIUM (test code = 7.6 mg/dL 8.6-10.6 L 7080317226) eGFR (test code = mL/min/1.73m2 1833114276) LU (test code = LU) Association of [...] tests). Lab Interpretation Abnormal (test code = 20707-7) [facility] METABOLIC PANEL (NA, K, CL, CO2, GLUCOSE, BUN, CREATININE, CA)2022-04-28 17:52:13 Test Item Value Reference Range Interpretation Comments NA (test code = 142 mmol/L 135-145 8192243808) K (test code = 2.6 mmol/L 3.5-5.0 LL 5555679361) CL (test code = 109 mmol/L 98-108 H 3679524262) CO2 TOTAL (test code = 26 mmol/L 23-31 9293944710) AGAP (test code = 2-16 8353534530) BUN (test code = 3 mg/dL 7-23 L 6085340408) GLUCOSE (test code = 95 mg/dL 70-110 4152866584) CREATININE (test code = 0.57 mg/dL 0.60-1.25 L 3393432070) CALCIUM (test code = 7.6 mg/dL 8.6-10.6 L 9093869727) eGFR (test code = mL/min/1.73m2 5066924296) LU (test code = LU) Association of [...] tests). Lab Interpretation Abnormal (test code = 44513-7) [facility] (NA, K, CL, CO2, GLUCOSE, BUN, CREATININE, CA)2022-04-28 17:52:13 Test Item Value Reference Range Interpretation Comments NA (test code = 142 mmol/L 135-145 4062873971) K (test code = 2.6 mmol/L 3.5-5.0 LL 8080551015) CL (test code = 109 mmol/L 98-108 H 5998746970) CO2 TOTAL (test code = 26 mmol/L 23-31 0273714669) AGAP (test code = 2-16 8385447374) BUN (test code = 3 mg/dL 7-23 L 5078720075) GLUCOSE (test code = 95 mg/dL 70-110 6923976439) CREATININE (test code = 0.57 mg/dL 0.60-1.25 L 0192419233) CALCIUM (test code = 7.6 mg/dL 8.6-10.6 L 6757598549) eGFR (test code = mL/min/1.73m2 7874620849) LU (test code = LU) Association of [...] tests). Lab Interpretation Abnormal (test code = 45766-3) [facility] WITHOUT [id number] 17:16:02 Test Item Value Reference Range Interpretation Comments WBC (test code = 6690-2) See_Comment [A utomated message] The system [employer] generated this result transmit annette reference range : 4.20 - 10.70 10*3/?L. The reference range was not used to interpret this result as normal/abnormal . RBC (test code = 789-8) See_Comment L [Au tomated message] The system [employer] generated this result transmit annette reference range [...] 777-3) See_Comment [Au tomated message] The system [employer] generated this result transmit annette reference range : 150 - 328 10*3/?L. The reference range was not used to interpret this result as normal/abnormal . MPV (test code = 10.7 fL 9.8-13 30670-4) RDW-CV (test code = 14.9 % 12.1-15.4 788-0) RDW-SD (test code = 48.9 fL 38.5-51.6 73736-7) NRBC x10^3 (test code = See_Comment [Au tomated message] 4430649559) The system [employer] generated this result transmit annette reference range : 10*3/?L. The reference range was not used to interpret this result as normal/abnormal . NRBC/100 WBC (test code See_Comment [Au tomated message] = 1541120225) The system [facility] generated this result transmit annette reference range : 0.0 - 10.0 /100 WBC s. The reference r alisson was not used to interpret this result as normal/abnormal . IPF % (test code = 3014777693) Lab Interpretation (test Abnormal code = 46883-9) [facility] WITHOUT [id number] 17:16:02 Test Item Value Reference Range Interpretation Comments WBC (test code = 6690-2) See_Comment [A utomated message] The system [employer] generated this result transmit annette reference range : 4.20 - 10.70 10*3/?L. The reference range was not used to interpret this result as normal/abnormal . RBC (test code = 789-8) See_Comment L [Au tomated message] The system [employer] generated this result transmit annette reference range [...] 777-3) See_Comment [Au tomated message] The system [employer] generated this result transmit annette reference range : 150 - 328 10*3/?L. The reference range was not used to interpret this result as normal/abnormal . MPV (test code = 10.7 fL 9.8-13.0 99673-0) RDW-CV (test code = 14.9 % 12.1-15.4 788-0) RDW-SD (test code = 48.9 fL 38.5-51.6 26545-6) NRBC x10^3 (test code = <0.01 See_Comment [Au tomated message] 5327411829) The system [employer] generated this result transmit annette reference range : 10*3/?L. The reference range was not used to interpret this result as normal/abnormal . NRBC/100 WBC (test code See_Comment [Au tomated message] = 1334668045) The system [facility] generated this result transmit annette reference range : 0.0 - 10.0 /100 WBC s. The reference r alisson was not used to interpret this result as normal/abnormal . IPF % (test code = 6371366511) Lab Interpretation (test Abnormal code = 17816-8) [facility] WITHOUT [id number] 17:16:02 Test Item Value Reference Range Interpretation Comments WBC (test code = 6690-2) See_Comment [A utomated message] The system [facility] generated this result transmit annette reference range : 4.20 - 10.70 10*3/?L. The reference range was not used to interpret this result as normal/abnormal . RBC (test code = 789-8) See_Comment L [Au tomated message] The system [facility] generated this result transmit annette reference [...] 777-3) See_Comment [Au tomated message] The system [facility] generated this result transmit annette reference range : 150 - 328 10*3/?L. The reference range was not used to interpret this result as normal/abnormal . MPV (test code = 10.7 fL 9.8-13.0 08398-9) RDW-CV (test code = 14.9 % 12.1-15.4 788-0) RDW-SD (test code = 48.9 fL 38.5-51.6 80288-2) NRBC x10^3 (test code = <0.01 See_Comment [Au tomated message] 8369252374) The system [facility] generated this result transmit annette reference range : 10*3/?L. The reference range was not used to interpret this result as normal/abnormal . NRBC/100 WBC (test code See_Comment [Au tomated message] = 4434852147) The system [facility] generated this result transmit annette reference range : 0.0 - 10.0 /100 WBC s. The reference r alisson was not used to interpret this result as normal/abnormal . IPF % (test code = 3537973573) Lab Interpretation (test Abnormal code = 86489-7) [facility] [id number] 22:31:26 Test Item Value Reference Range Interpretation Comments K (test code = 7036867306) 3.3 mmol/L 3.5-5 L Lab Interpretation (test code = Abnormal 15496-3) [facility] METABOLIC PANEL (NA, K, CL, CO2, GLUCOSE, BUN, CREATININE, CA)2022-04-27 22:31:26 Test Item Value Reference Range Interpretation Comments NA (test code = 144 mmol/L 135-145 5123985705) K (test code = 3.3 mmol/L 3.5-5 L 9884469924) CL (test code = 112 mmol/L 98-108 H 2830056050) CO2 TOTAL (test code = 27 mmol/L 23-31 5378364136) AGAP (test code = 2-16 3198785750) BUN (test code = 5 mg/dL 7-23 L 4648488279) GLUCOSE (test code = 118 mg/dL 70-110 H 7948009816) CREATININE (test code = 0.63 mg/dL 0.6-1.25 8600229995) CALCIUM (test code = 7.6 mg/dL 8.6-10.6 L 4506503462) eGFR (test code = mL/min/1.73m2 3490315558) LU (test code = LU) Association of [...] tests). Lab Interpretation Abnormal (test code = 65211-4) [facility] [id number] 22:31:26 Test Item Value Reference Range Interpretation Comments K (test code = 1490148310) 3.3 mmol/L 3.5-5.0 L Lab Interpretation (test code = Abnormal 49886-6) [facility] [id number] 22:31:26 Test Item Value Reference Range Interpretation Comments K (test code = 6352419277) 3.3 mmol/L 3.5-5.0 L Lab Interpretation (test code = Abnormal 24838-3) [facility] METABOLIC PANEL (NA, K, CL, CO2, GLUCOSE, BUN, CREATININE, CA)2022-04-27 22:31:26 Test Item Value Reference Range Interpretation Comments NA (test code = 144 mmol/L 135-145 7451088606) K (test code = 3.3 mmol/L 3.5-5.0 L 8013431209) CL (test code = 112 mmol/L 98-108 H 9626334087) CO2 TOTAL (test code = 27 mmol/L 23-31 6602821946) AGAP (test code = 2-16 9513788401) BUN (test code = 5 mg/dL 7-23 L 6263845336) GLUCOSE (test code = 118 mg/dL 70-110 H 8954136985) CREATININE (test code = 0.63 mg/dL 0.60-1.25 6498423439) CALCIUM (test code = 7.6 mg/dL 8.6-10.6 L 8240957228) eGFR (test code = mL/min/1.73m2 8231902961) LU (test code = LU) Association of [...] tests). Lab Interpretation Abnormal (test code = 57954-1) [facility]2022-07-05 21:22:49 Test Item Value Reference Range Interpretation Comments MAGNESIUM (test code = 6628531107) 2.1 mg/dL 1.7-2.4 Lab Interpretation (test code = Normal 99109-7) [facility]2022-07-05 21:22:49 Test Item Value Reference Range Interpretation Comments MAGNESIUM (test code = 9240359267) 2.1 mg/dL 1.7-2.4 Lab Interpretation (test code = Normal 95149-7) [facility]2022-07-05 21:22:49 Test Item Value Reference Range Interpretation Comments MAGNESIUM (test code = 5225704861) 2.1 mg/dL 1.7-2.4 Lab Interpretation (test code = Normal 07053-2) [facility] (NA, K, CL, CO2, GLUCOSE, BUN, CREATININE, CA)2022-04-27 15:50:29 Test Item Value Reference Range Interpretation Comments NA (test code = 143 mmol/L 135-145 5535522333) K (test code = 2.4 mmol/L 3.5-5 LL 7911946147) CL (test code = 110 mmol/L 98-108 H 4500859969) CO2 TOTAL (test code = 28 mmol/L 23-31 7755128299) AGAP (test code = 2-16 6322148964) BUN (test code = 4 mg/dL 7-23 L 9366156651) GLUCOSE (test code = 56 mg/dL 70-110 L 0631735701) CREATININE (test code = 0.65 mg/dL 0.6-1.25 3129386937) CALCIUM (test code = 7.7 mg/dL 8.6-10.6 L 6719980763) eGFR (test code = mL/min/1.73m2 7862813606) LU (test code = LU) Association of [...] tests). Lab Interpretation Abnormal (test code = 35369-5) [facility] METABOLIC PANEL (NA, K, CL, CO2, GLUCOSE, BUN, CREATININE, CA)2022-04-27 15:50:29 Test Item Value Reference Range Interpretation Comments NA (test code = 143 mmol/L 135-145 6808728543) K (test code = 2.4 mmol/L 3.5-5.0 LL 8772138872) CL (test code = 110 mmol/L 98-108 H 5956225945) CO2 TOTAL (test code = 28 mmol/L 23-31 7820610042) AGAP (test code = 2-16 4649923562) BUN (test code = 4 mg/dL 7-23 L 6780276426) GLUCOSE (test code = 56 mg/dL 70-110 L 9476022599) CREATININE (test code = 0.65 mg/dL 0.60-1.25 0815162918) CALCIUM (test code = 7.7 mg/dL 8.6-10.6 L 0473880987) eGFR (test code = mL/min/1.73m2 0620664093) LU (test code = LU) Association of [...] tests). Lab Interpretation Abnormal (test code = 71659-0) [facility] [id number] 23:23:37 Test Item Value Reference Interpretation Comments Range TROPONIN I (test 0.007 ng/mL See_Comment [Automated code = 5751732034) message] The system which generated this result [...] biotin. Lab Interpretation Normal (test code = 30090-4) [facility]. METABOLIC PANEL ([id number])2022-04-26 23:23:37 Test Item Value Reference Range Interpretation Comments NA (test code = 143 mmol/L 135-145 3687350880) K (test code = 2.3 mmol/L 3.5-5 LL 4529942257) CL (test code = 107 mmol/L 98-108 7143382739) CO2 TOTAL (test code = 27 mmol/L 23-31 9061400658) AGAP (test code = 2-16 3295768893) BUN (test code = 4 mg/dL 7-23 L 5203473129) GLUCOSE (test code = 86 mg/dL 70-110 5762094120) CREATININE (test code = 0.73 mg/dL 0.6-1.25 3377619263) TOTAL BILI (test code = 0.7 mg/dL 0.1-1.7 7239545929) CALCIUM (test code = 7.6 mg/dL 8.6-10.6 L 7432453408) T PROTEIN (test code = 6.5 g/dL 6.3-8.2 3147307515) ALBUMIN (test code = 2.7 g/dL 3.5-5 L 8544763157) ALK PHOS (test code = 96 U/L 34-122 5237322676) ALTv (test code = 13 U/L 5-50 1742-6) AST(SGOT) (test code = 22 U/L 13-40 2796284348) eGFR (test code = mL/min/1.73m2 4013987561) LU (test code = LU) Association of [...] tests). Lab Interpretation Abnormal (test code = 14011-6) [id number] 23:23[facility]37 Test Item Value Reference Interpretation Comments Range TROPONIN I (test 0.007 ng/mL See_Comment [Automated code = 4994961807) message] The system which generated this result [...] biotin. Lab Interpretation Normal (test code = 56571-7) [facility]OLIC PAN[facility] ([id number])2022-04-26 23:23:37 Test Item Value Reference Range Interpretation Comments NA (test code = 143 mmol/L 135-145 7122047382) K (test code = 2.3 mmol/L 3.5-5.0 LL 6905845450) CL (test code = 107 mmol/L 98-108 3520880442) CO2 TOTAL (test code = 27 mmol/L 23-31 6721406542) AGAP (test code = 2-16 6791017738) BUN (test code = 4 mg/dL 7-23 L 3371595367) GLUCOSE (test code = 86 mg/dL 70-110 5208771053) CREATININE (test code = 0.73 mg/dL 0.60-1.25 3261447600) TOTAL BILI (test code = 0.7 mg/dL 0.1-1.3 5717793833) CALCIUM (test code = 7.6 mg/dL 8.6-10.6 L 8550263595) T PROTEIN (test code = 6.5 g/dL 6.3-8.2 8355909601) ALBUMIN (test code = 2.7 g/dL 3.5-5.0 L 1102760665) ALK PHOS (test code = 96 U/L 34-122 2317525179) ALTv (test code = 13 U/L 5-50 1742-6) AST(SGOT) (test code = 22 U/L 13-40 8284723204) eGFR (test code = mL/min/1.73m2 1380202542) LU (test code = LU) Association of [...] tests). Lab Interpretation Abnormal (test code = 03390-0) [facility] CenterFERNA[facility]DA [id number] 23:23:37 Test Item Value Reference Interpretation Comments Range TROPONIN I (test 0.007 ng/mL See_Comment [Automated code = 4928486741) message] The system which generated this result [...] biotin. Lab Interpretation Normal (test code = 02194-0) [facility]. METABOLIC PANEL ([id number])2022-04-26 23:23:37 Test Item Value Reference Range Interpretation Comments NA (test code = 143 mmol/L 135-145 0578319716) K (test code = 2.3 mmol/L 3.5-5.0 LL 2765347735) CL (test code = 107 mmol/L 98-108 0556430930) CO2 TOTAL (test code = 27 mmol/L 23-31 3818039304) AGAP (test code = 2-16 6914942604) BUN (test code = 4 mg/dL 7-23 L 3737372286) GLUCOSE (test code = 86 mg/dL 70-110 9907669658) CREATININE (test code = 0.73 mg/dL 0.60-1.25 8168555825) TOTAL BILI (test code = 0.7 mg/dL 0.1-1.3 3175065746) CALCIUM (test code = 7.6 mg/dL 8.6-10.6 L 1021824670) T PROTEIN (test code = 6.5 g/dL 6.3-8.2 4109933976) ALBUMIN (test code = 2.7 g/dL 3.5-5.0 L 0010139419) ALK PHOS (test code = 96 U/L 34-122 6114361943) ALTv (test code = 13 U/L 5-50 1742-6) AST(SGOT) (test code = 22 U/L 13-40 5135151669) eGFR (test code = mL/min/1.73m2 0355290700) LU (test code = LU) Association of [...] tests). Lab Interpretation Abnormal (test code = 85864-6) [facility] [id number] 23:20:37 Test Item Value Reference Range Interpretation Comments NT-proBNP (test code 393 pg/mL See_Comment H [Autom ated = 1238210827) message] The system which generated this result transmitted reference range : <=125. The reference range was not used to interpret this result as normal/abnormal . LU (test code = LU) Biotin has been reported to cause a negative bias, interpret results relative to patient's use of biotin. Lab Interpretation Abnormal (test code = 37767-0) [facility] [id number] 23:20:37 Test Item Value Reference Range Interpretation Comments NT-proBNP (test code 393 pg/mL See_Comment H [Autom ated = 9772419967) message] The system which generated this result transmitted reference range : <=125. The reference range was not used to interpret this result as normal/abnormal . LU (test code = LU) Biotin has been reported to cause a negative bias, interpret results relative to patient's use of biotin. Lab Interpretation Abnormal (test code = 46920-1) [facility] [id number] 23:20:37 Test Item Value Reference Range Interpretation Comments NT-proBNP (test code 393 pg/mL See_Comment H [Autom ated = 4886219799) message] The system which generated this result transmitted reference range : <=125. The reference range was not used to interpret this result as normal/abnormal . LU (test code = LU) Biotin has been reported to cause a negative bias, interpret results relative to patient's use of biotin. Lab Interpretation Abnormal (test code = 95140-6) [facility] CenterLIPASE2022-07-04 23:11:39 Test Item Value Reference Range Interpretation Comments LIPASE (test code = 3931805981) 78 U/L 0-220 Lab Interpretation (test code = Normal 89789-6) [facility]2022[facility] 23:11:39 Test Item Value Reference Range Interpretation Comments LIPASE (test code = 7440715148) 78 U/L 0-220 Lab Interpretation (test code = Normal 21419-5) [facility] 23:11:39 Test Item Value Reference Range Interpretation Comments LIPASE (test code = 6864303843) 78 U/L 0-220 Lab Interpretation (test code = Normal 41004-7) [facility] CenterCB WITH [id number] 22:55:18 Test Item Value Reference Range Interpretation Comments WBC (test code = See_Comment [Automated 1190-2) message] The sy stem which generated this result transmitted reference range : 4.20 - 10.70 10*3/?L. The reference range was not used to interpret this result as normal/abnormal . RBC (test code = See_Comment L [Automated 239-8) message] The sy stem which generated this [...] RDW-SD (test code = 45.2 fL 38.5-51.6 99135-0) RDW-CV (test code = 14.3 % 12.1-15.4 788-0) PLT (test code = See_Comment [Automated 777-3) message] The sy stem which generated this result transmitted reference range : 150 - 328 10*3/ ?L. The reference r alisson was not used to interpret this result as normal/abnormal . MPV (test code = 10.5 fL 9.8-13 94878-7) NRBC/100 WBC (test See_Comment [Automat ed code = 8736205623) message] The system which generated this result transmitted reference range : 0.0 - 10.0 /100 WBCs. The refer ence range was not u sed to interpret th is result as normal/abnormal . NRBC x10^3 (test code See_Comment [Auto mated = 9484319717) message] The s ystem which generated this result transmitted reference range : 10*3/?L. The reference range was not used to interpret this result as normal/abnormal . GRAN MAT (NEUT) % 73.6 % (test code = 770-8) IMM GRAN % (test code 0.30 % = 3478875014) LYMPH % (test code = 20.6 % 736-9) MONO % (test code = 4.9 % 5905-5) EOS % (test code = 0.3 % 713-8) BASO % (test code = 0.3 % 706-2) GRAN MAT x10^3(ANC) 6.49 10*3/uL 1.99-6.95 (test code = 4592958917) IMM GRAN x10^3 (test 0.03 10*3/uL 0-0.06 code = 9270269963) LYMPH x10^3 (test code 1.82 10*3/uL 1.09-3.23 = 731-0) MONO x10^3 (test code 0.43 10*3/uL 0.36-1.02 = 742-7) EOS x10^3 (test code = 0.03 10*3/uL 0.06-0.53 L 711-2) BASO x10^3 (test code 0.03 10*3/uL 0.01-0.09 = 704-7) Lab Interpretation Abnormal (test code = 27077-4) [facility] WITH [id number] 22:55:18 Test Item Value Reference Range Interpretation Comments WBC (test code = See_Comment [Automated 2390-2) message] The sy stem which generated this result transmitted reference range : 4.20 - 10.70 10*3/?L. The reference range was not used to interpret this result as normal/abnormal . RBC (test code = See_Comment L [Automated 849-8) message] The sy stem which generated this [...] RDW-SD (test code = 45.2 fL 38.5-51.6 19820-1) RDW-CV (test code = 14.3 % 12.1-15.4 788-0) PLT (test code = See_Comment [Automated 777-3) message] The sy stem which generated this result transmitted reference range : 150 - 328 10*3/ ?L. The reference r alisson was not used to interpret this result as normal/abnormal . MPV (test code = 10.5 fL 9.8-13.0 68427-4) NRBC/100 WBC (test See_Comment [Automat ed code = 9521350831) message] The system which generated this result transmitted reference range : 0.0 - 10.0 /100 WBCs. The refer ence range was not u sed to interpret th is result as normal/abnormal . NRBC x10^3 (test code <0.01 See_Comment [Auto mated = 2227802726) message] The s ystem which generated this result transmitted reference range : 10*3/?L. The reference range was not used to interpret this result as normal/abnormal . GRAN MAT (NEUT) % 73.6 % (test code = 770-8) IMM GRAN % (test code 0.30 % = 6955996409) LYMPH % (test code = 20.6 % 736-9) MONO % (test code = 4.9 % 5905-5) EOS % (test code = 0.3 % 713-8) BASO % (test code = 0.3 % 706-2) GRAN MAT x10^3(ANC) 6.49 10*3/uL 1.99-6.95 (test code = 2041540348) IMM GRAN x10^3 (test 0.03 10*3/uL 0.00-0.06 code = 0779650626) LYMPH x10^3 (test code 1.82 10*3/uL 1.09-3.23 = 731-0) MONO x10^3 (test code 0.43 10*3/uL 0.36-1.02 = 742-7) EOS x10^3 (test code = 0.03 10*3/uL 0.06-0.53 L 711-2) BASO x10^3 (test code 0.03 10*3/uL 0.01-0.09 = 704-7) Lab Interpretation Abnormal (test code = 69091-3) [facility] WITH [id number] 22:55:18 Test Item Value Reference Range Interpretation [...] RDW-SD (test code = 45.2 fL 38.5-51.6 87832-1) RDW-CV (test code = 14.3 % 12.1-15.4 788-0) PLT (test code = See_Comment [Automated 777-3) message] The sy stem which generated this result transmitted reference range : 150 - 328 10*3/ ?L. The reference r alisson was not used to interpret this result as normal/abnormal . MPV (test code = 10.5 fL 9.8-13.0 47503-0) NRBC/100 WBC (test See_Comment [Automat ed code = 3319575281) message] The system which generated this result transmitted reference range : 0.0 - 10.0 /100 WBCs. The refer ence range was not u sed to interpret th is result as normal/abnormal . NRBC x10^3 (test code <0.01 See_Comment [Auto mated = 8757810185) message] The s ystem which generated this result transmitted reference range : 10*3/?L. The reference range was not used to interpret this result as normal/abnormal . GRAN MAT (NEUT) % 73.6 % (test code = 770-8) IMM GRAN % (test code 0.30 % = 7392004112) LYMPH % (test code = 20.6 % 736-9) MONO % (test code = 4.9 % 5905-5) EOS % (test code = 0.3 % 713-8) BASO % (test code = 0.3 % 706-2) GRAN MAT x10^3(ANC) 6.49 10*3/uL 1.99-6.95 (test code = 2458877006) IMM GRAN x10^3 (test 0.03 10*3/uL 0.00-0.06 code = 3245865705) LYMPH x10^3 (test code 1.82 10*3/uL 1.09-3.23 = 731-0) MONO x10^3 (test code 0.43 10*3/uL 0.36-1.02 = 742-7) EOS x10^3 (test code = 0.03 10*3/uL 0.06-0.53 L 711-2) BASO x10^3 (test code 0.03 10*3/uL 0.01-0.09 = 704-7) Lab Interpretation Abnormal (test code = 65415-0) [facility] [id number] 16:42:42 Test Item Value Reference Range Interpretation Comments Case Report (test code Surgical Pathology ? ? = [id number]) ?Case: [id number] ? Authorizing Provider: ?Negrito Shaver MD ? Collected: ? 03/12/2022 1050 ?Ordering Location: ? ? [facility] ? ? ?Received: ?03/12/2022 1656 ? [facility] ?Pathologist: ? Carolin Ruiz MD ? Specimens: ? A) - APPENDIX ? B) - HERNIA SAC, RIGHT INGUINAL, RIGHT INGUINAL HERNIA SAC ? Final Diagnosis (test u8dccSUnYDEid7mxCVKmlS code = [id number]) FuZzEwMzNcZnRuYmpcdWMx IHtccnRmMVxhbnNpXGRlZm ijkjsrLGZnDST6fwFcNTHt WIS8IJJ7EiXrBCTrZwf3DX KuSG9mxWgnnIp4gZwlTIDq ofB4yIJvFGomk8vzQAR4h6 jjoxxtSRLfMVbgOz6fnKMo dZrxYiJsOQLkBIg8aH37NG WtgB1hkCXmEXbbaqXiEbJ8 IGiqEJYgUaJ6HYSriMYiSA A5rXgeYJVyqtgjXfO0NNxq TKDfjtjrPSf4AYirJVMatE F6MKChtBVcJ9XgIBZjKE9e mjm1FII9RShbPKOfWgJ3NC HbnPYrTXZutOdpGUjhz946 SCV9ZkDoMXDjwfMerUtsnG 9lVgScPBrrORWrLM7mDTHN IV8UHXoeQCUDGDGFVHVWLC 9NWTpccGFyICAgICAtIEJF TklHTiBBUFBFTkRJWCBUSV WIKXZzE2uQNMNSUVRMIHwe A95JB8TAPVjUZvEVJqMXSQ XKCPKNLJ6DFNUBLZwqUWFR FP2XXNFYUYKZFJJbuDLgBJ JjxrCBWnXqU6vhTvLauZBd SEVSTklBIFNBQywgRVhDSV LHZ882RGQbiqz+FV8oyfw+ CU5tAHSPLxiYEmZEIVOPVJ uBECpFXQXKOY7OSXDYAIAT V5YVZWLOR9LhUScKU9EEHO qNEEswDlWEZ0SLKNEuQ17X Y9IJCIgXPjfpWTPgtkCwIT WxHXGzZ19EX3vBVEVKUZTJ CLESAZiQEu5CRBTKZPXbaP VcNBJhG2BxCEObLLWinbks czIyIExpbmRzYXkgQmlnaG FxOSXJBqJsWE0cZF7tJYVl XLY6BmYfJNENFGTliidtdt GaDQXfbo13AHQ6AhUsz0B0 RGPnTgJcWPNqDG9beXlkUL KfSP2bXHEhM3cegE7avoc2 McDdVZCkZfL9QCCpjeL0Xv d9NWOfPXzmj2ypw9JwM7Gy yBHnpTv5v8bpQNAyQaD3iQ HqGLamK6jrhdPskPLfWWGi AFi2jHktFxTzYUMzi3fnyy BcZmNoYXJzZXQwIENhbGli yvq8aR30VVNjxR3xfLHnZA hrefVlRjH1MUyxVVCkFvT3 JKCusCDkYAOwV8fdVURrFC suBCUaGXtwoTEiWMS3kTpe p2H0qPEprAOufRsoPyOvTs RiBYUBm1AbBEg5vWcpH6Dl WWPeNsK6xFBbXFSjVRavMG XdEEYsslM7tB65OYvhqaN0 rZDmi1Fwc40sq758eB3lbI YzDRI0ALSkQPBjyUGtWVUf AEF7VGPvfXVdR4nwFTXdMK 6cchdhEPscFFiiCULlcNQ2 CMEfpPBoM2TyGXXqUAauZR Tzags3RjOqFw4qrXAjyYmj YHmli1usd9bkbQJrZtm5JA QfDtKkGheeCVfnx5Hrc4ic VCZtvq0rQXV3cURbmUaly9 M1gAMjEIAekIEemgIjMLRp GiZ5YNruED1wno04LAOuVU X1ka2sqCGcfObverQmoOQb KXbwZ5PsMZNgq520PCSrD6 AvPIWix2Q4jaQzFkArCBWq qOT4hcW1AXFxLNi6pACqhy V2jqXwhVEuH9prqZ6lEOJv VS6alzyxp8neCUnyTCbhLQ UmbND7jmO9CKBqkQGdH5Bl kL6gSMCbQOveFTFkwrb9Gt ZhEb0xeHGgnLxqHEzcVqbe YWdlXHBnbmNvbnRccGduZG VjXHBsYWluXHBsYWluXGYw WJNpUbReiFkzzDvmmE0zUu UjNrToBUxnQP6iLQZzG2cd oELrXFOjMJYvC9yoEfKfgD 9jaFxmMVxjZjJcZnMyMFxw YXIgSSBoYXZlIHBlcnNvbm UojFiuxuK5vXO3AOKoWUkz CHRjVXGryKOioe1coXddVG YlKK9kVSPhjoSvJRiqoJgj LMesSDD1UGXulMObwSBubR FkZSBieSByZXNpZGVudHMs ZMDtiYfck6Gnp4VkmDG8bP 1nf5wem3LvUECmyNL3BL89 lcM8jA5uQTHiFI5xNCFyQW 6trIGuvMWpSBIll98thUxz cyByZXBvcnQuXHBsYWluXG YyXGZzMjhcbGFuZzEwMzNc aGljaFxmMlxkYmNoXGYyXG hsL5byHrDpVrXnRVfwOOW4 lMkekuGqSGzph3SjX1JfNw AwMFxhbnNpXGRlZmxhbmcx NXUkERZ1tjIrFLLaDVbbPF VfZRygPh8prHPdtIoyWzFx WMZjy4njxbAHFMmhEyMiF2 65ZBBiMHqvm8xaz5GcKYXy rIJtm5K0AOUAsgxtwTz1jB mtF57nx4X5RggaO5aqFHHc BAFoN3KbNA1xNIBsUnz2SK K2AAO4VOEhMMDhK1VvCN6b VRBmaMNiXIi9c6apgAfjTX DlAHX9k4heWDzttbW8GH2s ht5pkTn4j5juuiFiABCsNA DrnTRJFZDfT9MkxKstRt0h iZa4qXjcUheaPCT8Hbp6LQ 9taw04ugg1sLxiNZYbtavq ZbG2IZekVQMuuhvfLEk7NJ oyCROwqMB1JBVmgVXtM9Ui KFEkVC3ypyn2JSR0QNefKW KwZvU9CIJkqEUsYBFjmApw OUjfz277HJL8CiDnFE2zQ1 Frl9B5bD7gzWNsTOZdhWUx HeNfJZFbmc6xnTCwSXcdl7 IuI71wnKS7LUego4fuFR5w KnT6hhMlDXaqi2mwtA1pIl G7ZZivNN6gjt35OPNmTMH6 sd9hnGFitKyvzxRxnEKvUU kzO5HcXEIkv219ADPvK8Hu ZXKst0K4dpNnErUrCBKkyR F7vfY1KRSqWIi0iIGjdcD2 ghYswRHbD8xukC5fPFOrPL 0ygsrjn0jiREctEHyeQNPf wNF3ntZ7BSXyeYJoG4ImrC 8hOQDrFOnsTDHlkqx2UtXa Rb8gcTDpqRxiQOpiEbvmNG dlXHBnbmNvbnRccGduZGVj XHBsYWluXHBsYWluXGYwXG BsNmBbqTZrLUzah9FtruLv mCloCBCuIDi1xmSsfxiqcP b8tSEwoUgwYBNogNfxiT4q BcVcYuRbQJhwFQ0eZEUqT2 jxyGXyLZPzUTWgI4tjPwZt sZ3gaJrgVEsiSmOaQtVlLW xsdHJjaFxwYXIgSSBoYXZl GFObwlWiiiDggKlvqrQ4hX W8ONEyWTacOIErTTZpsWSf nt6fnMyiYQNfVU7rTGNpia LdTOyuhYakXZraQLA7UCIc bWVudHMgbWFkZSBieSByZX VyWCYvxAZcWDEkkFice7Vi d5YxvDE7pQ1eu7lqa3KrNF LjcIC1SF44rdJ6qX5hWVZu KR9ePRRvSD7zcBDwyCPpAM Flb09jfQzvlfTnSZSrpqBu XHBsYWluXGYxXGZzMjBcbG FuZzEwMzNcaGljaFxmMVxk UeHzUILgGXywE3aiLnPgY6 YyXGZzMjBccGFyXHBhclxw LBIpr1OqExKpb8vuOJzdc5 wgqFi4GCgvlVKufgtjYCwm uvV6QAEpDSwfFUJqLQFbUP RcbGFuZzEwMzNcaGljaFxm YCehBlVrWCLfXDakP1thVl LaJ9GoLCApDFYhlXCtU0bb CNL1jU1gs0yqu9IpgLMjLx Tvr0yaunNbHDEbjVHydhQf aVUoPEIkh9IjJORdYKOkRX WBVa1ZYTMzmVHfM7z8bKRZ DM4jqKRrHKLyNWVrH2UiUp CFgmKkn0X5ISShuHMfYLCS SXXguYWkX8m2oSmbAKulQi q8EfQwpLwcxM2wJlXiHwIi UAtbLF1fIBSeZ1tczTJoAW FfENVnQ7enSbFfcG8kdElv MVxjZjJcZnMyMFxsdHJjaF csKDG9oM== Clinical Information RIGHT INGUINAL HERNIA (test code = [id number]) Gross Description (test l1nckHByMGUjyLCVQPQeF5 code = [id number]) kjddXdMAItaNIhC0Chkrmt XZkjVN3pDP3reCanfQAraQ DfUN0YIFTmLmZdHZBycTIs goOlOmLrVHSrhWOgnRZ8RP NuNA0bgafdPMfdVAtgQWHf gzL2RAOnlVWnM0HgRHZrDP 3bmcwdUMQ5KBdspI4hgrNC IdtdVo6ovLLrcIyaZnEqDb NoYXJzZXQwXGZuaWwgQXJp FYp5vL3SXhvtIJS4DTMMBi szCTKfTT2Cb8xvABIpyUOs OBA6SZkarVBuNOEbNXXvEY t6AIIdTOabkZIrEW4wtSmx SlquhVvri3TbrHEhXSznTQ PdZFPgVUekPUKcDT0VMlKz DIK2OYxbJNkiKTy4BBu5VH 9WUyAiICAxODgyOTUyMSIg FUj3SHslLE6VPLD4MvL6VH Z7BubmAGFdAzsbIWi9FTPr XFxmIEFyaWFsIFxcZnMgMT CqSLtgpWUrLT9teRejiXMq blxmczIwIFNQRUNJTUVOIE MvdGMvFT4WBRQjTGdcXVUm uGLFJLU0WC2gXCRPIzqgiC NrMDEwsMwuEOkddB4sJJ7C PFk8lgZmFYGxNxFjH6MiV7 jyED6hRLOmkjPaJJHfhSMi XNUlkiScd4KyFQswawSoNI JlbGVkIHdpdGggdGhlIHBh sPqvryMbewBaQX7sXWPKGN SmuR9yCSJeOfTmvNTyKFc1 DmwqUP4yXBSofkPhz2TuSB 9mIGFuIGludGFjdCwgdmVy iNqwk6BhHBVfpXKxDBe3TZ y7AlKqB61ahG4epLWnZ0Uh PIejBT28DATjZBHvjYYgdw GhcRJhOSSdryngv8i4kEQf yQEfQ0cxTPXtQRWsHLDzEA 6mjYarRU7nIWYkM3C7kKHo mJmkHNGrQMDtH4Jmr06yhT OeB4rmGsCChKQqi9Qej8Sx VCuwLMRdfy1lcT4hDUMcEZ ZdabCfr74gdpSsmNw7LFOb h396gTY2cSYhBPMevrogv7 RpRLC5DNVdLCkvDmXYaAUq z1DtM6wsRY6tnGGqp0OboN HcuUlmr0KndYdreoShSQAl MLFwyjGqvNH2UR3psCsydt EgnNPcr3DnUcIgBGKaZG9a KIBteUDiLY1cexPmZ7tdSo Jshz6mKIHmjmPyhQ60IZRx NSBjbSBpbiBkaWFtZXRlci K2pPK0SDVoodQmyK0fVNZe A21zcQ93xjVjaG02seQgn3 Cpm79hlAA1KZ2lHpRyu12b VmOhPZzucGM0YHNrMUisIV 9hWEZrofRfuoJ0iC2tajKk dwWbH0Knc9IbfYQvSTKacL pytTTdRhSBXLJ6nT8sviI5 byBpbmNsdWRlIHRoZSBlbi IuLNNaRWDli7YrdIfutrBl AOQewJ1wTSsnp3YvLHCsoK UpLCByZXByZXNlbnRhdGl2 GDLiox4uoi8dNGN6mR9wHB VpinIiUzawEIM8YTVisAee FWMwHWQqwYHqmNF9KVWwnL 4vHELfYSpbgAxvwY2uTCZm D55xk9UHl0VfIDLvXJrqr7 ixyNkgc8CrdSZcOIpnBDQn kEJvTPbllE6lOfUej4ywgI q0GNnqmxY0RKKpwp0EDnju LjijqDaxe4BhrJRgMUspNT DeTEUcKLpmLHGxBO0UQgMp QNV8ZVyhSTluZEn3ZRn2HU 3OYrXyJROuMYxdLNl4WREy ZSy7AVsaON3IPYQ5IjH9EK Q7YTMnWFElJvsyZPf1LPZk XFxmIEFyaWFsIFxcZnMgMT KlUXelkKQxAA6moNofveVq IFNQRUNJTUVOIEJccGFyIA 8WOSHdSWrgCNEpeQEFPUR8 UT0rNFQMUfwsaYFmONFbdR isUYvghO6cSU1SWPu9dhPn QERlVgJvG8AeP9tpSB1sHn BpcyByZWNlaXZlZCBpbiBm l8AgOZpnreDmETZijHNsBC dpdGggdGhlIHBhdGllbnQn opTzUU2uTBGUFZAgdC4yPE WxYtBiyZqetGRmwxl5lX9d fNCcLXGmkUTka0AcTywjAU 3rFGJhxoDfr5BcSY0kJZBf rHAaWWDagrofb3VdF2WtSS Nlj66qkFH1oKBovFNfIqYz M98iptPvPLBuKBB5KZHdKP A9KIYzYsGogRgwq8pbU5sh xTPdc5NdtUUngWgss0YtpS lvbmVkIHRvIHJldmVhbCB0 TN8icTbqlkFrNH2ggxVkq6 PvGTX3wGKhuBIsIHZiwl7r RDPpzXKiu4DfbPV0nWPtQB AqF0Dvx31yEPQiJWRspGFo lLC5QUQgsK3sJvPeVMSbtp JPQtioSEIpBKiKCYM2JSIa amVzdGthLCBQQSAoQVNDUC kNClxwbGFpblxlcGljTmVz rCWaKoVnzOntsD44NQRqsG WaYGH7SD5iIJZakprzAQTq ARGbBVD3MTraxH44uSQxJC XbNICcrLSmpP5VZPDdWCG8 MJnokX36lEVbLE3JBFWiSK Z0QYBzxDNiBOA1HD7llM1O fQ== Disclaimer (test code = y1ciyYMrZIMgo8tyPMXdoR [id number]) FuZzEwMzNcZnRuYmpcdWMx JGhschThDQtmu8RhK8AxMw AwMFxhbnNpXGRlZmxhbmcx MOOnGYV6vpFtSHJsGIsmBX DoDDtuVl4tlWQpoPlcFlOo XHTqk6cqkjCFEOzdHnVqH7 28VDFuZOsmu6ffk2InYKGw bGOdn1T5IVBWkjylnXl4uA ovY28hy7H3LnmxH1vmALWk YAWhG4EdYL3cJNDhGwv3PE Z5BMH4CTSgGJBwO6FpRM0u CQOedCBrFSt7x9xbaRcpNN AfJLE7u3tnABljphIgOH3d eu7dmPc7v3rzkeQlJPBiUM UwrAUYIRKcM1DlyVtzSq9n qWm6pWbiWrreCZJ1Jjk6VL 9vsc93amy7zNfzYANjwwva MjU6LMxySFCgsqtgEJr4HV umWSGokYD5EYNthDEtJ1Dj ZGMmFC7bmqb2DWU0ASolPJ MqMgQ1DCNvwLGsSLDfzSbo ANkho212ZVT6MsCeKM9jL1 Nlt1K6yH4nlMHhVPUwkTDf AnXeHSUfgb0dbIRyEXngx1 EvVKU0vtU0nGFmgTObCWBc UK31Ayuwz2HaWgrns4VvB9 4mwPD4IRpiw7jpPY5cCmA3 lvJeIJoqy9dioQ5nYsO2RY iiCS9tMN3xQFHstV0obrez XHBnYnJkcmhlYWRccGdicm TlFi7dlJihCJH1URluN2ek gD3eMrN1TJblF6flnZ8rKW h6CSiujMV6YBJtcQ0tPG0t mihiz1xaWWjzNOoyEMFwtm B8rbI9ILQodRKxB4UufC0a UNFuFY6okvjlu8onQIZ7PS swKABgFTK6NpBmNCBch0Sz sqz8SxWdu3NpwOSaUAmqQ2 8pl023LYAavsGuS0ptlUHc zakbdVBrucssDDxqheR8IK YqcbMlu0WiADGkZDJ6FYmw WMfnwJAlAJPolXvtk7ttN6 RscGFyXHBsYWluXGYxXGZz MjBcbGFuZzEwMzNcaGljaF ssIXrrZcOvEDPdSLpoB2nj EeJcM5RiSGXaCxApdCMxD5 ggVGhpcyByZXBvcnQgbWF5 RAbeM2s8YVRhdvEppNd3sf VxUvNsKPWsKQG5QSroqOZt YUSob2KmdidxpIPmXz7goI NzBYFgwK6uPNYeWBNbDIza OR6gyGi0FELKeMZpfKWwJy KDENEnWJ20caHvIFALjhfd p5M7EQwnCVNzf1DulMKpB7 ith5PqEUNuz74eGS5xe0O0 u8lcZPN3AM8ik8XlGYVsjK JnhSEzVMSyc8Dfqlcoc5Uk QAAbggDbx8BoWWBljfHoqL HxMSFnafTbuh6jmwBbFZUv QMAeI9PnmrwlyAurdzTzSQ Zvvp8kifYfOQV8DIVKUZFa TTVeb6QxsS7doKBXJRZ0mX Enub6zubVDwBYdZRKdde06 PIQjLB3pT7vbXLVeZLPdpp CfsUDyx3EtXAItoKJ0oHZw RQ6QVcALy30kKBMfUHWRni NrVHVqpDzudSE3hqG0zA9b IChGREEpLlx+IFRoZSBGRE ArMD7jzoXxf8RcfxZmtBxb DACtjKUzb4JzwNMds2BzxJ ygx1NunHNztTIpDY0oUNEb clxwYXIgVVRNQiBMYWJvcm H6x0AnKCRdVPRzAMV3fXed ugx8JIFckQ7mSCUzY1yfds lrIBmeCKZum4KlrC6pvGCP jGFfl5LlnMUmiUEVzPKfZK 4kdgWnCLjLPCvYEIN8pvPo ZIYqv3OuNJtyK7rbP76ucP vgzVy7kZT2BDS1tD7wOuk+ IFxwYXJccGFyIEFwcHJvcH DqMGYfvIydgfKyG7WxfkZd lD9idTLxfkBlVC5oFF8jF3 G2jDPpCEBqaeDew8txCOyo dmUgYmVlbiByZXZpZXdlZC Zmc4GpJCudMMI2YJapfmCw bmNsdWRpbmcgSCZFLCBTcG VhhMFaBJT6OQwzurRdpxNc JW3ndS1bnNxuaD8xhKIkvT V1pxpbWHPaUMXsqVhjLJMc TN9qkOKvCOHhbyNQvJnetJ RbkH8sX6GwYSLfGHHfis0v SQXvxF0zEIocz1BaykbcCY ZeWZKxBKSrzaRixt7jIJWx kXJOLE5IEXsbjOSiv1Pdoo CxU4bTSBE6OWQwNhOjPuiw IQQhyPIinBKxVXIcap76GA MfsG6xwZorSXDliG0nlM3q wYrytD8oWdKqNxUaXOdkOI 9pQXRsZ9vpoOUiSKTaCEMq W1ruRxUirA3fhQwwMHbkQp CiXmRiCFyoPDN4dP== Embedded Images (test code = [id number]) [facility] - This is a pre-surgical type and screen. ONCE [id number] 17:52:02 Test Item Value Reference Range Interpretation Comments ABO & RH (test AB POSITIVE Performed at [facility] code = 20) [facility] [place] [address]Clkt Free: [phone] A No. [id number] IAT (test code = Negative Performed a t [facility] 1185) [facility] [address] [place] [address]Rigb Free: [phone] A No. [id number] [facility] CenterPREALBUMIN2022-04-14 23:13:17 Test Item Value Reference Range Interpretation Comments PALB (test code = 42454-7) 20.2 mg/dL 18.0-45.0 Lab Interpretation (test code = Normal 24682-2) [facility] CenterHEPATIC FUNCTION PANEL (29467) (ALB,T.PRO,BILI T,BU/BC,ALT,AST,ALK PHOS)2022-02-04 23:05:58 Test Item Value Reference Range Interpretation Comments TOTAL BILI (test code = 9512886341) 0.4 mg/dL 0.1-1.1 BILI UNCON (test code = 5357100165) 0.2 mg/dL 0.1-1.1 BILI CONJ (test code = 5363952538) 0.0 mg/dL 0.0-0.3 T PROTEIN (test code = 1832974798) 7.7 g/dL 6.3-8.2 ALBUMIN (test code = 1981593159) 3.4 g/dL 3.5-5.0 L ALK PHOS (test code = 5490792576) 65 U/L 34-122 ALTv (test code = 1742-6) 11 U/L 5-50 AST(SGOT) (test code = 5586093654) 23 U/L 13-40 Lab Interpretation (test code = Abnormal 31534-5) [facility] CenterACUTE HEPATITIS [id number] 03:38:00 Test Item Value Reference Range Interpretation Comments AB HEPATITIS A IGM NEGATIVE (test code = HAVMAB) AG HEPATITIS B NEGATIVE SCREEN NEGATIVE SURFACE (test code = HBSAG) AB HEPATITIS B CORE NEGATIVE IGM (test code = HBCMAB) AB HEPATITIS C (test <0.1 RATIO <0.8 S/C RAT ION 0.0 - code = HCVAB) 0.9 NEGATIVE <0.8INDETERMINA TE 0.8 - 0.9POSITI VE >0.9 [id number] 16:06:00 Test Item Value Reference Range Interpretation Comments SURG (test code = SURG) RUN DATE: 10/07/20 [facility] PAGE 1 RUN TIME: 1607 Specimen Inquiry RUN USER: INTERFACE PATIENT: MYRON VICTORTAHIR LOC: WINTER U #: [id number] AGE/SX: 35/M ROOM: WINTER RE10/06/20REG DR: Sreekanth Garcia MD : 84 BED: 3 DIS: STATUS: ADM Arcadio TLOC: SPEC #: [id number]:[id number] RECD: 10/06/20 STATUS: ELZA REMaya #: [id number] MIRIAM: 10/06/[address]: Sreekanth Garcia MD ENTERED: 10/06/20 SP TYPE: SURG OTHR DR: DOES_NOT KNOW No Primary or Family Physician Juan Mcbride MD, Jignesh P MDORDERED: SURG PATH LVL 4 COPIES TO: DOES_NOT KNOW No Primary [place] [address] [address] [email or web address] [address] [place], [place] [address] Arnulfo Cormier MD [address] [address] HISTOLOGY: TISSUE ID BLK PCS KANWAL LEV PROCEDURE DISPOSITION ____ ___ ___ ___ ESOPHAGUS, NOS A 1 2 PROCEDURES: SURG PATH LVL 4 (10/06/20) TISSUES: A. ESOPHAGUS, NOS - ESOPHAGUS BIOPSY CLINICAL HISTORY ESOPHAGEAL FOOD BOLUS, STRICTURE V DYSMOTILITY CONTINUED ON NEXT PAGE RUN DATE: 10/07/20 [facility] PAGE 2 RUN TIME: 1607 Specimen Inquiry RUN USER: INTERFACE SPEC #: [facility]:[id number] PATIENT: TAHIR SANCHES JR #[id number] (Continued) CPT CODES CPT CODE(S): 46952 , , , , , , FINAL DIAGNOSIS Esophagus, biopsy: ACUTE ESOPHAGITIS WITH CANDIDIASIS NEGATIVE FOR INTESTINAL METAPLASIA, DYSPLASIA, OR MALIGNANCY GROSS DESCRIPTION Esophagus biopsy. Received in formalin are multiple minute fragments of suarez soft tissue, 0.1 - 0.3 cm. The specimen is filtered in a teabag and entirely submitted as A. ba/nr Grossing performed at [facility] Pathology, [address] [place] [address], [address], [place] [address]. Wine Steward/Stewardess: Abner Steward M.D. MICROSCOPIC DESCRIPTION Esophagus biopsy. [...] indicativ e of the presence code = RSXAI92MW) ofSARS-CoV -2 RNA, clinical correlation wit h [...] indicativ e of the presence code = DOOUT12XT) ofSARS-CoV -2 RNA, clinical correlation wit h [...] for the identification of SARS-CoV-2 RNA usingthe [employer] M2000 Sy stem under the FDA Emergen cy UseAuthorizatio n. The testing is perf ormed by personneltraine d in the procedures for the [employer] M2000 molecular diagnostic SARS-CoV-2 assa y in vitro. CBC W/AUTO [id number] 13:10:00 Test Item Value Reference Range Interpretation [...] NT WITH AUTO DIFFERENTI AL. CBC W/AUTO [id number] 13:10:00 Test Item Value Reference Range Interpretation [...] CONSISTA NT WITH AUTO DIFFERENTI AL. RBC [id number] 13:10:00 Test Item Value Reference Range Interpretation Comments PLATELET ESTIMATE DECREASED THOUSAND ADEQUATE PLAT ELET COUNT (test code = REVIEWED AND PLTEST) VERIFIED. PLATELET MORPHOLOGY NORMAL (test code = PLTMORPH) CBC W/AUTO [id number] 13:10:00 Test Item Value Reference Range Interpretation [...] NT WITH AUTO DIFFERENTI AL. COMPREHENSIVE METABOLIC [id number] 11:48:00 Test Item Value Reference Range Interpretation [...] TOTAL (test code = ALKP) CBC W/AUTO [id number] 11:33:00 Test Item Value Reference Range Interpretation [...] REQUIRED (test code = DIFF/SCN CRITERIA MDIFF) [id number] 04:59:00 Test Item Value Reference Range Interpretation Comments AMMONIA (test code = AMM) 56 mcMOL/L 11-32 H LACTIC [id number] 04:59:00 Test Item Value Reference Range Interpretation Comments LACTIC ACID (test code = LACT) 0.7 mmol/L 0.4-2.0 N GLUCOSE BEDSIDE [id number] 20:35:00 Test Item Value Reference Range Interpretation Comments GLUCOSE BEDSIDE TESTING (test code 109 mg/dL 70-110 N = GLUBED) GLUCOSE BEDSIDE [id number] 17:10:00 Test Item Value Reference Range Interpretation Comments GLUCOSE BEDSIDE TESTING (test code 105 mg/dL 70-110 N = GLUBED) - US ABDOMEN [id number] 16:39:00 [facility] 1985 Sex: M Name:TAHIR SANCHES JR [facility] : 1985 Age/S: 35 / M [address] Unit #: [id number]: [place] [id number] Phys: Matilda Kirk PA-C Acct: [id number] Dis Date: Status: ADM IN PHONE #: [phone] Exam Date: 10/06/2020 7406 FAX #: Reason: elevated lfts, evaluate for cirrhosis EXAMS: CPT: [id number] US ABDOMEN [facility] [address] RIGHT UPPER QUADRANT ULTRASOUND. CLINICAL HISTORY: Elevated [...] Signed Report (CONTINUED) Name: TAHIR SANCHES JR [place] : 1985 Age/S: 35 / M [address] Unit #: [id number] Loc: [place] [address] Phys: Matilda Kirk PA-C Acct: [id number] Dis Date: Status: ADM IN PHONE #: [phone] Exam Date: 10/06/2020 1519 FAX #: Reason: elevated lfts, evaluate for cirrhosis EXAMS: CPT: [id number] US ABDOMEN LTD 04273 (Continued) CC: Sreekanth Garcia MD; Matilda Kirk Technologist: [facility] Date/Time: 10/06/2020 (1639) [id number] PAGE 2 Signed Report Name: TAHIR SANCHES JR [place] : 1985 Age/S: 35 / M [address] Unit #: [id number] Loc: [place] [address] Phys: Matilda Kirk PA-C Acct: [id number] Dis Date:Status: ADM IN PHONE #: [phone] Exam Date: 10/06/2020 1516 FAX #: Reason: elevated lfts, evaluate for cirrhosis EXAMS: CPT: [id number] US ABDOMEN LTD 25369 (Continued) Orig Print D/T: S: 10/06/2020 (1643) Probe: PAGE 3 Signed ReportUA RFLX MICR CULT IF INDICATED 2020-10-06 15:23:00 Test Item Value Reference Range Interpretation [...] 92 mg/dL 70-110 N GLUBED) GLUCOSE BEDSIDE [id number] 13:37:00 Test Item Value Reference Range Interpretation Comments GLUCOSE BEDSIDE TESTING (test code = 58 mg/dL 70-110 L GLUBED) CREATINE KINASE (CK)2020-10-06 11:26:00 Test Item Value Reference Range Interpretation Comments CREATINE KINASE (CK) (test code = 287 Unit/L 26-192 H CK) [id number] 11:26:00 Test Item Value Reference Range Interpretation Comments AMYLASE (test code = JOSE CARLOS) 120 Unit/L 25-115 H [id number] 11:26:00 Test Item Value Reference Range Interpretation Comments LIPASE (test code = LIP) 112 Unit/L 114-286 L CBC W/AUTO [id number] 09:58:00 Test Item Value Reference Range Interpretation [...] DIFF/SCN CRITERIA (test code = MDIFF) WBC [id number] 09:58:00 Test Item Value Reference Range Interpretation [...] NORMAL (test code = PLTMORPH) CBC W/AUTO [id number] 09:55:00 Test Item Value Reference Range Interpretation [...] DIFF/SCN CRITERIA (test code = MDIFF) WBC [id number] 09:55:00 Test Item Value Reference Range Interpretation Comments SEGMENTED NEUTROPHILS (test code = SEG) % 40-75 LYMPHOCYTE (test code = LYMPH) % 12.6-43.5 CBC W/AUTO [id number] 09:55:00 Test Item Value Reference Range Interpretation [...] DIFF/SCN CRITERIA (test code = MDIFF) WBC [id number] 09:55:00 Test Item Value Reference Range Interpretation Comments SEGMENTED NEUTROPHILS (test code = SEG) % 40-75 LYMPHOCYTE (test code = LYMPH) % 12.6-43.5 COMPREHENSIVE METABOLIC [id number] 09:14:00 Test Item Value Reference Range Interpretation [...] TOTAL (test code = ALKP) CBC W/AUTO [id number] 09:02:00 Test Item Value Reference Range Interpretation [...] CRITERIA (test code = MDIFF) GLUCOSE BEDSIDE [id number] 06:41:00 Test Item Value Reference Range Interpretation Comments GLUCOSE BEDSIDE TESTING (test code = 65 mg/dL 70-110 L GLUBED) COVID 19 INHOUSE [id number] 05:40:00 Test Item Value Reference Range Interpretation Comments COVID 19 INHOUSE AG NEGATIVE Negative Per manu facturer, (test code = negative result s should [id number]) be treated aspr esumptive and, if inconsi [...] co nsistent with COVID-19. - CT CHEST [id number] 03:30:00 [facility] 1985 Sex: M Name:TAHIR SANCHES JR [facility] : 1985 Age/S: 35 / M [address] Unit #: [id number]: [place] [id number] Phys: Scott Person MD Acct: [id number] Dis Date: Status: REG ER PHONE #: [phone] Exam Date: 10/06/2020 0243 FAX #: Reason: possible esophageal pneumatosis EXAMS: CPT:[id number] CT CHEST W/CONTRAST 31723 DICTATION LOCATION: H48 HISTORY: Male, 35 years [...] lymph nodes by CT criteria. Visualized portions ofthyroid gland unremarkable. The esophagus is dilated throughout measuring up to 5.0 cm transverse dimension and 2.6 cm AP dimension. The esophageal lumen is filled with food material and fluid. Concentr ic ring of tiny bubbles is seen surrounding [...] JR : 1985 Age/S: 35 / M [address] Unit #: [id number] Loc: [place] [address] Phys: Scott Person MD Acct: [id number] Dis Date: Status: REG ER PHONE #: [phone] Exam Date: 10/06/2020 0245 FAX#: Reason: possible esophageal pneumatosis EXAMS: CPT: [id number] CT CHEST W/CONTRAST 09198 (Continued) (i.e. scleroderma or dermatomyositis). Infiltrative neoplasm [...] (332) PAGE 2 Signed Report- CT NECK [id number] 03:11:00 [facility] : 1985 Sex: M Name[facility] [place] [facility] 1985 Age/S: 35 / M [address] Unit #: [id number]: [place] [address] Phys: Scott Person MD Acct: [id number] Dis Date: Status: REG ER PHONE #: [phone] Exam Date: 10/06/2020 0250 FAX #: Reason: possible esophageal pneumatosis EXAMS: CPT:[id number] CT NECK W/CONTRAST 92782 EXAM: - CT NECK W/CONTRAST LOCATION: H57 [...] Signed Report (CONTINUED) Name: TAHIR SANCHES JR [place] : 1985 Age/S: 35 / M [address] [address] Unit #: [id number] Loc: [place] [address] Phys: Scott Person MD Acct: [id number] Dis Date: Status: REG ER PHONE #: [phone] Exam Date: 10/06/2020 025 FAX #: Reason: possible esophageal pneumatosis EXAMS: CPT: [id number] CT NECK W/CONTRAST 43785 (Continued) CC: Technologist:Valentine Momin, RT(R)(CT); CTDI: DLP: [...]
--- NOTE | 2022-08-11 15:46 | ER ---
Nurse's Notes [facility] Name: Tahir Ag Jr Age: 37 yrs Sex: Male : 1985 Arrival Date: 08/11/2022 Time: 12:54 Bed IW1 Private MD: Diagnosis: Presentation: 08/11 12:54 Chief complaint: Patient states: toned or for syncopal episode. EMS reports pt stating ld1 "I lied - I did not fall and hit my head or pass out. But I do feel dizzy.". Coronavirus screen: At this time, the client does not indicate any symptoms associated with coronavirus-19. Ebola Screen: No symptoms or risks identified at this time. Initial Sepsis Screen: Does the patient meet any 2 criteria? No. Patient's initial sepsis screen is negative. Does the patient have a suspected source of infection? No. Patient's initial sepsis screen is negative. Risk Assessment: Do you want to hurt yourself or someone else? Patient reports no desire to harm self or others. Onset of symptoms was August 11, 2022. 12:54 Method Of Arrival: [facility]: [facility] ld1 12:54 Acuity: MARTINA 3 ld1 Triage Assessment: 12:56 General: Appears in no apparent distress. comfortable, Behavior is calm, cooperative, ld1 appropriate for age. Pain: Denies pain. EENT: No signs and/or symptoms were reported regarding the EENT system. Neuro: Level of Consciousness is awake, alert, obeys commands, Oriented to person, place, time, situation, Reports dizziness. Cardiovascular: Capillary refill < 3 seconds Patient's skin is warm and dry. Respiratory: Airway is patent Respiratory effort is even, unlabored. GI: Abdomen is flat, non-distended. : No signs and/or symptoms were reported regarding the genitourinary system. Derm: No signs and/or symptoms reported regarding the dermatologic system. Musculoskeletal: No signs and/or symptoms reported regarding the musculoskeletal system. Historical: - Allergies: 12:56 No Known Allergies; ld1 - PMHx: 12:56 achalasia; Bipolar disorder; Diabetes - NIDDM; Hernia; Hypertension; Schizophrenia; ld1 Seizure; - PSHx: 12:56 gastrostomy tube; ld1 - Immunization history:: Adult Immunizations up to date. - Social history:: Smoking status: Patient reports the use of cigarette tobacco products, smokes one pack cigarettes per day. Assessment: 15:45 Reassessment:. ld1 Vital Signs: 12:54 BP 96 / 60; Pulse 78; Resp 18; Temp 97.6(O); Pulse Ox 99% on R/A; Weight 44.45 kg; ld1 Height 5 ft. 5 in. (165.10 cm); Pain 0/10; 12:54 Body Mass Index 16.31 (44.45 kg, 165.10 cm) ld1 ED Course: 12:54 Patient arrived in ED. ld1 12:54 Keshawn Fish MD is Attending Physician. daniel 12:56 Triage completed. ld1 12:56 Arm band placed on right wrist. ld1 15:45 No provider procedures requiring assistance completed. Patient did not have IV access ld1 during this emergency room visit. Administered Medications: No medications were administered Outcome: 15:46 Eloped from waiting room, before seeing physician Time discovered patient gone: July ld2021 at 15:00 15:46 Patient left the ED. ld1 Signatures: Keshawn Fish MD MD cha Dibbern, Lauren, RN RN ld1
[2022-08-11 15:51] VITALS: BP 96/60; TEMP 97.6; O2SAT 99
== END 2022-08-11 15:46 | disposition left against medical advice (07) ==
LOC: ER 12:51
DX: Z53.21 Procedure and treatment not carried out due to patient leaving prior to being seen by health care provider (principal)
CPT/HCPCS: 99282

== ENCOUNTER 2022-08-14 14:39 | Emergency (ER) | payer OTHER ==
--- OUTSIDE RECORDS SUMMARY | 2022-08-14 14:49 | XMS REPORT | Continuity of Care Document ---
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 (eight) Branch hours as needed for Nausea and Vomiting (N/V). ondansetron 0 Yes [id number] 8mg Take 1 Univers 8 mg 8-03 tablet by ity of disintegrat 00:00: mouth [place] ing tablet 00 every 8 Medica l (eight) Branch hours as needed for Nausea and Vomiting (N/V). ondansetron 0 Yes [id number] 8mg Take 1 Univers 8 mg 8-03 tablet by ity of disintegrat 00:00: mouth [place] ing tablet 00 every 8 Medica l (eight) Branch hours as needed for Nausea and Vomiting (N/V). ondansetron 0 Yes [id number] 8mg Take 1 Univers 8 mg 8-03 tablet by ity of disintegrat 00:00: mouth [place] ing tablet 00 every 8 Medica l (eight) Branch hours as needed for Nausea and Vomiting (N/V). ondansetron 0 Yes [id number] 8mg Take 1 Univers 8 mg 8-03 tablet by ity of disintegrat 00:00: mouth [place] ing tablet 00 every 8 Medica l (eight) Branch hours as needed for Nausea and Vomiting (N/V). ondansetron 0 Yes [id number] 8mg Take 1 Univers 8 mg 8-03 tablet by ity of disintegrat 00:00: mouth [place] ing tablet 00 every 8 Medica l (eight) Branch hours as needed for Nausea and Vomiting (N/V). ondansetron 0 Yes [id number] 8mg Take 1 Univers 8 mg 8-03 tablet by ity of disintegrat 00:00: mouth [place] ing tablet 00 every 8 Medica l (eight) Branch hours as needed for Nausea and Vomiting (N/V). pantoprazol 2021- Yes [id number] 40mg Take 20 mL Univers e 2 mg/mL 05-26 through ity of oral 00:00: 04:59 enteral [place] suspension 00 :00 tube in Medica l the Branch morning for 30 days. pantoprazol 2021- Yes [id number] 40mg Take 20 mL Univers e 2 [...] Takes monthly on the NaCl 0.9% 2021- 1000mL at 999 Uni vers (NS) bolus [...] Discontinu ed, Routine, Pain (scale 7-10) melatonin 2021- Yes 3mg 3 mg, Univers (MELATIN) 05-03 [...] Routine, Pain (scale 7-10) KCL 20 2021-0 2021- No 40meq 40 mEq, Univer s [...] 40meq 40 mEq, Univer s mEq/15 mL - 07-05 Enteral, ity o f solution 40 [...] D5W 0.45% 2021- No IV Univers NaCl 7- 07-10 Infusion, ity of (1/2NS) 1 L 19:45: 12:56 [place] 75 [place] + KCL 20 00 :51 mL/hr, Medical mEq CONTINUOUS Branch , Starting on Tue04/27/22 at 1445, Until 05/02/22 at 0756, Routine KCL 2021- No 40meq 40 mEq, Univers (POTASSIUM 04-27- 250 mL, IV it y of CHLORIDE) [...] Tue04/26/22 at 2315, Until Discontinu ed ondansetron 202-0 Yes 4mg 4 mg, Slow Univers (ZOFRAN 7-05 IV Push, ity of (PF)) 03:10: Q6HPRN, [place] injection 4 38 Starting Medi erendira mg [...] dose, On Medical mEq/100 mL Tue04/26/22 [facility] RTU IVPB 20 at 1930, mEq 100 [...] Branch at 1830, STAT iopamidol 2021- No [id number] 50mL 50 mL, U nivers (ISOVUE 04-26 Intravenou ity o f 370-500 mL) 22:57: 22:57 s, ONCE, 1 [place] injection 00 :00 dose, On Medica l 50 mL Tue04/26/22 Branch at 1815, Routine valproic Yes Take by Univer s acid, as 04-26 mouth. Pt ity of sodium 21:06: unaware of [place] salt, 35 dosage Medical (DEPAKENE Branch ORAL) paliperidon 2022-0 Yes by Univer s e palmitate 7-04 [...] Branch Takes monthly on the ibuprofen Yes [id number] 200mg Take 10 mL Univers 100 mg/5 mL 5-20 by mouth 3 it y of oral 00:00: (three) [place] suspension 00 times Medical daily with Branch meals. ibuprofen 2021-0 Yes [id number] 200mg Take 10 mL Univers 100 mg/5 mL 5-20 by mouth 3 it y of oral 00:00: (three) [place] suspension 00 times Medical daily with Branch meals. ibuprofen 2021-0 Yes [id number] 200mg Take 10 mL Univers 100 mg/5 mL 5-20 by mouth 3 it y of oral 00:00: (three) [place] suspension 00 times Medical daily with Branch meals. ibuprofen 2021-0 Yes [id number] 200mg Take 10 mL Univers 100 mg/5 mL 5-20 by mouth 3 it y of oral 00:00: (three) [place] suspension 00 times Medical daily with Branch meals. ibuprofen 2022-0 Yes [id number] 200mg Take 10 mL Univers 100 mg/5 mL 5-20 by mouth 3 it y of oral 00:00: (three) [place] suspension 00 times Medical daily with Branch meals. ibuprofen 2022-0 Yes [id number] 200mg Take 10 mL Univers 100 mg/5 mL 5-20 by mouth 3 it y of oral 00:00: (three) [place] suspension 00 times Medical daily with Branch meals. ibuprofen 2022-0 Yes [id number] 200mg Take 10 mL Univers 100 mg/5 mL 5-20 by mouth 3 it y of oral 00:00: (three) [place] suspension 00 times Medical daily with Branch meals. ibuprofen 2022-0 Yes [id number] 200mg Take 10 mL Univers 100 mg/5 mL 5-20 by mouth 3 it y of oral 00:00: (three) [place] suspension 00 times Medical daily with Branch meals. ibuprofen 2022-0 Yes [id number] 200mg Take 10 mL Univers 100 mg/5 mL 5-20 by mouth 3 it y of oral 00:00: (three) [place] suspension 00 times Medical daily with Branch meals. ibuprofen 2022-0 Yes [id number] 200mg Take 10 mL Univers 100 mg/5 mL 5-20 by mouth 3 it y of oral 00:00: (three) [place] suspension 00 times Medical daily with Branch meals. ibuprofen 2022-0 Yes [id number] 200mg Take 10 mL Univers 100 mg/5 mL 5-20 by mouth 3 it y of oral 00:00: (three) [place] suspension 00 times Medical daily with Branch meals. ibuprofen 2022-0 Yes [id number] 200mg Take 10 mL Univers 100 mg/5 mL 5-20 by mouth 3 it y of oral 00:00: (three) [place] suspension 00 times Medical daily with Branch meals. ibuprofen 2022-0 Yes [id number] 200mg Take 10 mL Univers 100 mg/5 mL 5-20 by mouth 3 it y of oral 00:00: (three) [place] suspension 00 times Medical daily with Branch meals. ibuprofen 2022-0 Yes [id number] 200mg Take 10 mL Univers 100 mg/5 mL 5-20 by mouth 3 it y of oral 00:00: (three) [place] suspension 00 times Medical daily with Branch meals. Immunizations Ordered Filled Immunization Date Status Comments [facility] e Immunization Name Name SARS-COV-2 COVID-19 2021-09-22 Completed Unive rsity of PFIZER VACCINE 00:00:00 [facility] SARS-COV-2 COVID-19 2021-09-22 Completed Unive rsity of PFIZER VACCINE 00:00:00 [facility] SARS-COV-2 COVID-19 2021-09-22 Completed Unive rsity of PFIZER VACCINE 00:00:00 [facility] SARS-COV-2 COVID-19 2021-09-22 Completed Unive rsity of PFIZER VACCINE 00:00:00 [facility] SARS-COV-2 COVID-19 2021-09-22 Completed Unive rsity of PFIZER VACCINE 00:00:00 [facility] SARS-COV-2 COVID-19 2021-09-22 Completed Unive rsity of PFIZER VACCINE 00:00:00 [facility] SARS-COV-2 COVID-19 2021-09-22 Completed Unive rsity of PFIZER VACCINE 00:00:00 [facility] SARS-COV-2 COVID-19 2021-09-22 Completed Unive rsity of PFIZER VACCINE 00:00:00 [facility] SARS-COV-2 COVID-19 2021-09-22 Completed Unive rsity of PFIZER VACCINE 00:00:00 [facility] SARS-COV-2 COVID-19 2021-09-22 Completed Unive rsity of PFIZER VACCINE 00:00:00 [facility] SARS-COV-2 COVID-19 2021-09-22 Completed Unive rsity of PFIZER VACCINE 00:00:00 [facility] SARS-COV-2 COVID-19 2021-09-22 Completed Unive rsity of PFIZER VACCINE 00:00:00 [facility] SARS-COV-2 COVID-19 2021-09-22 Completed Unive rsity of PFIZER VACCINE 00:00:00 [facility] SARS-COV-2 COVID-19 2021-09-22 Completed Unive rsity of PFIZER VACCINE 00:00:00 [facility] Influenza Virus 2020-08-30 Completed Universit y of Vaccine Quad .5 mL 00:00:00 [facility] 6+ MO Branch Pneumococcal 2020-08-30 Completed University [...] y of Vaccine Quad .5 mL 00:00:00 [place] Medical IM 6+ MO Branch Pneumococcal 2020-08-30 Completed University o f Polysaccharide, 00:00:00 [place] Med ical PPSV23 (PNEUMOVAX) Branch Influenza Virus 2020-08-30 Completed Universit y of Vaccine Quad .5 mL 00:00:00 [place] Medical IM 6+ MO Branch Pneumococcal 2020-08-30 Completed University o f Polysaccharide, 00:00:00 [place] Med ical PPSV23 (PNEUMOVAX) Branch Influenza Virus 2020-08-30 Completed Universit y of Vaccine Quad .5 mL 00:00:00 [place] Medical IM 6+ MO Branch Pneumococcal 2020-08-30 Completed University o f Polysaccharide, 00:00:00 [place] Med ical PPSV23 (PNEUMOVAX) Branch Influenza Virus 2020-08-30 Completed Universit y of Vaccine Quad .5 mL 00:00:00 [place] Medical IM 6+ MO Branch Pneumococcal 2020-08-30 Completed University o f Polysaccharide, 00:00:00 [place] Med ical PPSV23 (PNEUMOVAX) Branch Influenza Virus 2020-08-30 Completed Universit y of Vaccine Quad .5 mL 00:00:00 [facility] [place] [facility] IM 6+ MO Branch Pneumococcal 2020-08-30 Completed University o f Polysaccharide, 00:00:00 [place] Med ical PPSV23 (PNEUMOVAX) Branch Vital Signs Vital Name Observation Time Observation Value Comments Source Systolic blood 2022-08-10 13:09:00 96 mm[Hg] Univer sity of [facility] Diastolic blood 2022-08-10 13:09:00 66 mm[Hg] Unive rsity [facility] Heart rate 2022-08-10 13:09:00 75 /min [facility] Body temperature 2022-08-10 13:09:00 34.28 [facility] height 2022-08-10 13:09:00 165.1 cm [facility] Body weight 2022-08-10 13:09:00 35.607 kg [facility] BMI 2022-08-10 13:09:00 13.06 kg/m2 [facility] Systolic blood 2022-07-20 20:33:00 101 mm[Hg] Univer sity of pressure [place] [facility] Diastolic blood 2022-07-20 20:33:00 49 mm[Hg] Unive rsity of pressure [place] [facility] Heart rate 2022-07-20 20:33:00 67 /min Universi ty of [place] [facility] Body temperature 2022-07-20 20:33:00 36.11 Maude Univ ersity of [place] [facility] Respiratory rate 2022-07-20 20:33:00 18 /min Univ ersity of [place] [facility] Oxygen saturation in 2022-07-20 20:33:00 97 /min University of Arterial blood by [place] [address] [employer] I erendira Pulse oximetry Branch Body weight 2022-07-20 02:15:00 41.277 kg Universi ty of [place] [facility] BMI 2022-07-20 02:15:00 15.14 kg/m2 Universi ty of [place] [facility] Body height 2022-07-10 02:38:00 165.1 cm Universi ty of [place] [facility] Systolic blood 2022-07-12 02:00:00 108 mm[Hg] Univer sity of pressure [place] [facility] Diastolic blood 2022-07-12 02:00:00 52 mm[Hg] Unive rsity of pressure [place] [facility] Heart rate 2022-07-12 02:00:00 96 /min Universi ty of [place] [facility] Body temperature 2022-07-12 02:00:00 36.67 Maude Univ ersity of [place] [facility] Respiratory rate 2022-07-12 02:00:00 25 /min Univ ersity of [place] [facility] Oxygen saturation in 2022-07-12 02:00:00 94 /min University of Arterial blood by [place] [address] [facility] [employer] Fund I erendira Pulse oximetry Branch Body weight 2022-07-11 08:23:00 35.97 kg Universi ty of [place] [facility] BMI 2022-07-11 08:23:00 12.83 kg/m2 Universi ty of [place] [facility] Body height 2022-07-10 02:38:00 165.1 cm Universi ty of [place] [facility] Systolic blood 2022-05-27 03:00:00 94 mm[Hg] Univer sity of pressure [place] [facility] Diastolic blood 2022-05-27 03:00:00 69 mm[Hg] Unive rsity of pressure [place] [facility] Heart rate 2022-05-27 03:00:00 73 /min Universi ty of [place] [facility] Respiratory rate 2022-05-27 03:00:00 18 /min Univ ersity of [place] [facility] Oxygen saturation in 2022-05-27 03:00:00 100 /min University of Arterial blood by [facility] erendira Pulse oximetry Branch Body temperature 2022-05-27 00:00:00 36.67 Maude Univ ersity of [place] [facility] Body height 2022-05-27 00:00:00 165.1 cm Universi ty of [place] [facility] Body weight 2022-05-27 00:00:00 44.453 kg Universi ty of [place] [facility] BMI 2022-05-27 00:00:00 16.31 kg/m2 Universi ty of [place] [facility] Systolic blood 2022-05-04 13:19:00 100 mm[Hg] Univer sity of pressure [place] [facility] Diastolic blood 2022-05-04 13:19:00 66 mm[Hg] Unive rsity of pressure [place] [facility] Heart rate 2022-05-04 13:19:00 60 /min Universi ty of [place] [facility] Body temperature 2022-05-04 13:19:00 36.83 Maude Univ ersity of [place] [facility] Respiratory rate 2022-05-04 13:19:00 14 /min Univ ersity of [place] [facility] Oxygen saturation in 2022-05-04 13:19:00 98 /min University of Arterial blood by [facility] Pulse oximetry Branch Body weight 2022-04-29 08:40:00 41.958 kg Universi ty of [place] [facility] BMI 2022-04-29 08:40:00 15.39 kg/m2 Universi ty of [place] [facility] Body height 2022-04-27 02:59:00 165.1 cm Universi ty of [place] [facility] Systolic blood 2022-04-28 14:24:00 112 mm[Hg] Univer sity of pressure [place] [facility] Diastolic blood 2022-04-28 14:24:00 77 mm[Hg] Unive rsity of pressure [place] [facility] Heart rate 2022-04-28 14:24:00 51 /min Universi ty of [place] [facility] Body temperature 2022-04-28 14:24:00 36.56 Maude Univ ersity of [place] [facility] Respiratory rate 2022-04-28 14:24:00 16 /min Univ ersity of [place] [facility] Oxygen saturation in 2022-04-28 14:24:00 98 /min University of Arterial blood by [facility] Pulse oximetry Branch Body weight 2022-04-28 09:16:00 43.999 kg Universi ty [facility] BMI 2022-04-28 09:16:00 15.39 kg/m2 Universi ty [facility] Body height 2022-04-27 02:59:00 165.1 cm Universi ty [facility] Systolic blood 2022-04-28 16:55:00 111 mm[Hg] Univer sity of pressure [facility] Diastolic blood 2022-04-28 16:55:00 74 mm[Hg] Unive rsity of pressure [facility] Heart rate 2022-04-28 16:55:00 55 /min [facility] Body temperature 2022-04-28 16:55:00 36.39 Maude [facility] Respiratory rate 2022-04-28 16:55:00 15 /min [facility] Oxygen saturation in 2022-04-28 16:55:00 96 /min University of Arterial blood by [facility] Pulse oximetry Branch Body weight 2022-04-28 09:16:00 43.999 kg Universi [facility] BMI 2022-04-28 09:16:00 16.14 kg/m2 [facility] Body height 2022-04-27 02:59:00 165.1 cm [facility] Procedures Procedure Date / Time Performing Source Performed Clinician POCT GLUCOSE (AUTOMATED) 2022-07-20 Jorden Robertson [facility] ity of 16:40:00 [facility] POCT GLUCOSE (AUTOMATED) 2022-07-20 Jorden Robertson [facility] ity of 12:49:00 [facility] PREALBUMIN, SERUM 2022-07-20 [facility] o f 10:59:00 [facility] CORTISOL AM 2022-07-20 Dotty [place] of 10:59:00 [facility] PHOSPHORUS 2022-07-20 Jorden Robertson [place] of 10:52:00 [facility] MAGNESIUM 2022-07-20 Jorden Robertson [place] of 10:52:00 [facility] BASIC METABOLIC PANEL (NA, K, CL, 2022-07-20 Jorden Robertson [place] of CO2, GLUCOSE, BUN, CREATININE, CA) 10:52:00 [facility] POCT GLUCOSE (AUTOMATED) 2022-07-20 Ovrobert Jorden Univers ity of 04:40:00 [facility] POCT GLUCOSE (AUTOMATED) 2022-07-20 [place], Jorden Univers ity of 00:55:00 [facility] POCT GLUCOSE (AUTOMATED) 2022-07-19 Ovrobert, Jorden Univers ity of 22:01:00 [facility] POCT GLUCOSE (AUTOMATED) 2022-07-19 Ovrobert, Jorden Univers ity of 16:38:00 [facility] POCT GLUCOSE (AUTOMATED) 2022-07-19 Marcelo, Jorden Univers ity of 12:42:00 [facility] PHOSPHORUS 2022-07-19 [facility] of 10:20:00 Tricia [facility] BASIC METABOLIC PANEL (NA, K, CL, 2022-07-19 Keysha Nguyen [facility] [place] of CO2, GLUCOSE, BUN, CREATININE, CA) 10:20:00 D [facility] CBC WITH DIFF 2022-07-19 [facility] of 10:20:00 D [facility] POCT GLUCOSE (AUTOMATED) 2022-07-19 Kamron Robertsonlani Univers ity of 08:56:00 [facility] POCT GLUCOSE (AUTOMATED) 2022-07-19 Ovrobert, Jorden Univers ity of 06:09:00 [facility] POCT GLUCOSE (AUTOMATED) 2022-07-19 Kamron Robertsonlani Univers ity of 01:10:00 [facility] POCT GLUCOSE (AUTOMATED) 2022-07-18 Ovrobert, Jorden Univers ity of 21:12:00 [facility] POCT GLUCOSE (AUTOMATED) 2022-07-18 Ovrobert, Jorden Univers ity of 16:26:00 [facility] POCT GLUCOSE (AUTOMATED) 2022-07-18 Ovrobert, Jorden Univers ity of 13:13:00 [facility] PHOSPHORUS 2022-07-18 Kamron ocasiolani University of 10:08:00 [facility] MAGNESIUM 2022-07-18 Jina [facility] of 10:08:00 [facility] BASIC METABOLIC PANEL (NA, K, CL, 2022-07-18 JinaJc aquino [facility] of CO2, GLUCOSE, BUN, CREATININE, CA) 10:08:00 [facility] POCT GLUCOSE (AUTOMATED) 2022-07-18 Jorden Robertson Univers ity of 10:07:00 [facility] POCT GLUCOSE (AUTOMATED) 2022-07-18 Jorden Robertson Univers ity of 06:17:00 [facility] POCT GLUCOSE (AUTOMATED) 2022-07-18 Zachary Li Univers ity of 01:38:00 [facility] POCT GLUCOSE (AUTOMATED) 2022-07-17 Zachary Li Univers ity of 21:37:00 [facility] POCT GLUCOSE (AUTOMATED) 2022-07-17 Zachary Li Univers ity of 16:46:00 [facility] POCT GLUCOSE (AUTOMATED) 2022-07-17 Zachary Li Univers ity of 13:01:00 [facility] PHOSPHORUS 2022-07-17 [facility] of 09:12:00 [facility] MAGNESIUM 2022-07-[facility] of 09:12:00 [facility] BASIC METABOLIC PANEL (NA, K, CL, 2022-07-17 [facility] of CO2, GLUCOSE, BUN, CREATININE, CA) 09:12:00 [facility] CBC WITH DIFF 2022-07-17 Jina [facility] of 09:12:00 [facility] POCT GLUCOSE (AUTOMATED) 2022-07-17 Zachary Li Univers ity of 09:10:00 [facility] POCT GLUCOSE (AUTOMATED) 2022-07-17 Zachary iL Univers ity of 05:23:00 [facility] POCT GLUCOSE (AUTOMATED) 2022-07-17 Zachary Li Univers ity of 01:06:00 [facility] POCT GLUCOSE (AUTOMATED) 2022-07-16 Zachary Li Univers ity of 21:35:00 [facility] POCT GLUCOSE (AUTOMATED) 2022-07-16 Zachary Li Univers ity of 16:31:00 [facility] POCT GLUCOSE (AUTOMATED) 2022-07-16 Zachary Li ity of 09:19:00 [facility] PHOSPHORUS 2022-07-16 [facility] of 08:41:00 [facility] MAGNESIUM 2022-07-16 [facility] of 08:41:00 [facility] FERRITIN SERUM 2022-07-16 [facility] of 08:41:00 [facility] IRON 2022-07-16 [facility] of 08:41:00 [facility] TOTAL IRON BINDING CAPACITY 2022-07-16 [facility] ersity of 08:41:00 [facility] BASIC METABOLIC PANEL (NA, K, CL, 2022-07-16 [facility] of CO2, GLUCOSE, BUN, CREATININE, CA) 08:41:00 [facility] CBC WITH DIFF 2022-07-16 [facility] of 08:41:00 [facility] RETICULOCYTES AUTOMATED 2022-07-16 Zachary Lii ty of 08:41:00 [facility] POCT GLUCOSE (AUTOMATED) 2022-07-16 Zachary Li ity of 05:21:00 [facility] POCT GLUCOSE (AUTOMATED) 2022-07-16 Zachary Li Univers ity of 01:20:00 [facility] POCT GLUCOSE (AUTOMATED) 2022-07-15 Zachary Li Univers ity of 21:53:00 [facility] POCT GLUCOSE (AUTOMATED) 2022-07-15 Zachary Li ity of 17:09:00 [facility] POCT GLUCOSE (AUTOMATED) 2022-07-15 Zachary Li Univers ity of 13:45:00 [facility] XR KUB 2022-07-15 [facility] of 13:43:35 [facility] MAGNESIUM 2022-07-15 [facility] of 09:38:00 [facility] BASIC METABOLIC PANEL (NA, K, CL, 2022-07-15 [facility], May t University of CO2, GLUCOSE, BUN, CREATININE, CA) 09:38:00 [facility] CBC WITH DIFF 2022-07-15 [facility] of 09:38:00 [facility] POCT GLUCOSE (AUTOMATED) 2022-07-15 Zachary Li Univers ity of 04:59:00 [facility] POCT GLUCOSE (AUTOMATED) 2022-07-15 Zachary Li ity of 01:09:00 [facility] POCT GLUCOSE (AUTOMATED) 2022-07-14 Zachary Li Univers ity of 21:08:00 [facility] POCT GLUCOSE (AUTOMATED) 2022-07-14 Zachary Li Univers ity of 16:10:00 [facility] POCT GLUCOSE (AUTOMATED) 2022-07-14 Zachary Li Univers ity of 12:39:00 [facility] PHOSPHORUS 2022-07-14 Zachary Li of 10:36:00 [facility] MAGNESIUM 2022-07-14 Zachary Li [place] of 10:36:00 [facility] IRON 2022-07-14 Zachary Li [place] of 10:36:00 [facility] COMP. METABOLIC PANEL ([id number]) 2022-07-14 Zachary Li Un iversity of 10:36:00 [facility] CBC WITH DIFF 2022-07-14 Zachary Li of 10:36:00 [facility] POCT GLUCOSE (AUTOMATED) 2022-07-14 Zachary Li Univers ity of 09:06:00 [facility] POCT GLUCOSE (AUTOMATED) 2022-07-14 Zachary Li Univers ity of 05:22:00 [facility] POCT GLUCOSE (AUTOMATED) 2022-07-13 Zachary Li Univers ity of 22:27:00 [facility] POCT GLUCOSE (AUTOMATED) 2022-07-13 Zachary Li Univers ity of 20:56:00 [facility] POCT GLUCOSE (AUTOMATED) 2022-07-13 Zachary Li Univers ity of 15:49:00 [facility] POCT GLUCOSE (AUTOMATED) 2022-07-13 Zachary Li Univers ity of 15:15:00 [facility] POCT GLUCOSE (AUTOMATED) 2022-07-13 Zachary Li [facility] of 14:59:00 [facility] PREALBUMIN, SERUM 2022-07-13 Jina, [facility] o f 10:51:00 [facility]OSPHORUS 2022-07-13 [facility] 10:51:00 [facility] MAGNESIUM 2022-07-13 [facility] of 10:51:00 [facility] TOTAL IRON BINDING CAPACITY 2022-07-13 Zachary Li ersity of 10:51:00 [facility] BASIC METABOLIC PANEL (NA, K, CL, 2022-07-13 Jc Muro [employer] of CO2, GLUCOSE, BUN, CREATININE, CA) 10:51:00 [facility] CBC WITH DIFF 2022-07-13 [facility] of 10:51:00 [facility] XR CHEST 1 VW 2022-07-12 Zachary Li [place] of 21:52:10 [facility] PREALBUMIN, SERUM 2022-07-12 Zachary Li [place] of 15:31:00 [facility] VANCOMYCIN TROUGH 2022-07-12 [facility] of 11:07:00 [facility] VANCOMYCIN TROUGH 2022-07-12 [facility] of 11:07:00 [facility] PHOSPHORUS 2022-07-12 [facility] 10:02:00 [facility] URIC ACID 2022-07-12 Max Cruz [facility] of 10:02:00 [facility] MAGNESIUM 2022-07-12 [facility] 10:02:00 [facility] BASIC METABOLIC PANEL (NA, K, CL, 2022-07-12 Jina, May [facility] CO2, GLUCOSE, BUN, CREATININE, CA) 10:02:00 [facility] CBC WITH DIFF 2022-07-12 [facility] of 10:02:00 [facility] PHOSPHORUS 2022-07-12 [facility] of 10:02:00 [facility] URIC ACID 2022-07-12 Max Cruz [facility] 10:02:00 [facility] MAGNESIUM 2022-07-12 [facility] of 10:02:00 [facility] BASIC METABOLIC PANEL (NA, K, CL, 2022-07-12 Jina, May [facility] of CO2, GLUCOSE, BUN, CREATININE, CA) 10:02:00 [facility] CBC WITH DIFF 2022-07-12 [facility] of 10:02:00 [facility] AC PANEL 20 + LACTIC ACID 2022-07-11 [facility] 20:53:00 [facility] AC PANEL 20 + LACTIC ACID 2022-07-11 Johnny, [facility] ersity of 20:53:00 [facility] SURGICAL PATHOLOGY EXAM 2022-07-11 Azeri, [facility] ty of 20:28:00 [facility] XR CHEST 1 VW 2022-07-11 [facility] of 19:33:38 [facility] XR CHEST 1 VW 2022-07-11 [facility] of 19:33:38 [facility] EXPLORATORY LAPAROTOMY 2022-07-11 [facility] y of 18:36:00 [facility] BOWEL RESECTION 2022-07-11 [facility] of 18:36:00 [facility] EXPLORATORY LAPAROTOMY 2022-07-11 [facility] y of 18:36:00 [facility] BOWEL RESECTION 2022-07-11 [facility] of 18:36:00 [facility] XR KUB 2022-07-11 [facility] of 16:08:01 [facility] XR KUB 2022-07-11 [facility] of 16:08:01 [facility] BASIC METABOLIC PANEL (NA, K, CL, 2022-07-11 Zachary Li of CO2, GLUCOSE, BUN, CREATININE, CA) 11:50:00 [facility] BASIC METABOLIC PANEL (NA, K, CL, 2022-07-11 Zachary Li of CO2, GLUCOSE, BUN, CREATININE, CA) 11:50:00 [facility] XR KUB 2022-07-11 [facility] of 11:39:00 [facility] XR KUB 2022-07-11 [facility] of 11:39:00 [facility] CBC WITH DIFF 2022-07-11 Zachary Li of 10:45:00 [facility] CBC WITH DIFF 2022-07-11 Zachary Li of 10:45:00 [facility] CT ABDOMEN PELVIS WO CONTRAST 2022-07-11 Zachary Li Un iversity of 01:46:33 [facility] CT ABDOMEN PELVIS WO CONTRAST 2022-07-11 Zachary Li Un iversity of 01:46:33 [facility] MRSA / MSSA SCREEN BY PCRCLAUDIA 2022-07-10 Zachary Li of 23:27:00 [facility] MRSA / MSSA SCREEN BY PCR, CLAUDIA 2022-07-10 Zachary Li of 23:27:00 [facility] XR KUB 2022-07-10 Zachary Li of 22:40:17 [facility] XR KUB 2022-07-10 [facility] of 22:40:17 [facility] LACTIC ACID WHOLE BLOOD 2022-07-10 Iram Payne [facility] ity of 16:06:00 J [facility] LACTIC ACID WHOLE BLOOD 2022-07-10 Iram Payne [facility] ity of 16:06:00 J [facility] BLOOD CULTURE SCREEN 2022-07-10 Lupillo Taylor [place] of 10:59:00 [facility] PHOSPHORUS 2022-07-10 Lupillo Taylor [place] of 10:59:00 [facility] MAGNESIUM 2022-07-10 Brandon [facility] of 10:59:00 [facility] BASIC METABOLIC PANEL (NA, K, CL, 2022-07-10 Aaron Taylor [place] of CO2, GLUCOSE, BUN, CREATININE, CA) 10:59:00 [facility] CBC WITH DIFF 2022-07-10 Lupillo Taylor [place] of 10:59:00 [facility] BLOOD CULTURE SCREEN 2022-07-10 Lupillo Taylor [place] of 10:59:00 [facility] PHOSPHORUS 2022-07-10 Lupillo Taylor [place] of 10:59:00 [facility] MAGNESIUM 2022-07-10 Lupillo Taylor [place] of 10:59:00 [facility] BASIC METABOLIC PANEL (NA, K, CL, 2022-07-10 Aaron Taylor [place] of CO2, GLUCOSE, BUN, CREATININE, CA) 10:59:00 [facility] CBC WITH DIFF 2022-07-10 Lupillo Taylor of 10:59:[address] [facility] CT ABDOMEN PELVIS WO CONTRAST 2022-07-10 Lupillo Taylor Un iversity of 09:25:28 [facility] CT ABDOMEN PELVIS WO CONTRAST 2022-07-10 Lupillo Taylor Un iversity of 09:25:28 [facility] COVID-19 (ID NOW RAPID TESTING) 2022-07-10 Iram Payne of 01:12:00 [facility] COVID-19 (ID NOW RAPID TESTING) 2022-07-10 Iram Payne of 01:12:00 [facility] LAB ONLY COVID INTERPRETATION 2022-07-10 Iram Payne U [facility]iversity of 01:12:00 [facility] LACTIC ACID WHOLE BLOOD 2022-07-10 Iram Payne [facility] ity of 00:14:00 J [facility] LACTIC ACID WHOLE BLOOD 2022-07-10 Iram Payne [facility] ity of 00:14:00 J [facility] LIPASE 2022-07-10 Iram Payne [place] of 00:10:00 J [facility] MAGNESIUM 2022-07-10 Iram Payne [place] of 00:10:00 J [facility] COMP. METABOLIC PANEL (06143) 2022-07-10 Iram Payne U niversity of 00:10:00 J [facility] CBC WITH DIFF 2022-07-10 Iram Payne [place] of 00:10:00 J [facility] LIPASE 2022-07-10 Iram Payne [place] of 00:10:00 J [facility] MAGNESIUM 2022-07-10 Iram Payne [place] of 00:10:00 J [facility] COMP. METABOLIC PANEL (02611) 2022-07-10 Iram Payne [facility] of 00:10:00 J [facility] CBC WITH DIFF 2022-07-10 Iram Payne [place] of 00:10:00 J [facility] NOTICE OF PRIVACY PRACTICES 2022-07-09 Doctor [facility] ersity of 23:38:54 Unassigned, No [facility] NOTICE OF PRIVACY PRACTICES 2022-07-09 Doctor [facility] ersity of 23:38:54 Unassigned, No [facility] CONSENT/REFUSAL FOR DIAGNOSIS AND 2022-07-09 Doctor University of TREATMENT 23:37:03 Unassigned, No [facility] CONSENT/REFUSAL FOR DIAGNOSIS AND 2022-07-09 Doctor [place] of TREATMENT 23:37:03 Unassigned, No [facility] COMP. METABOLIC PANEL ([id number]) 2022-05-27 Janene Taylor iversity of 00:31:00 [facility] CBC WITH DIFF 2022-05-27 Janene Taylor [place] of 00:31:00 [facility] CONSENT/REFUSAL FOR DIAGNOSIS AND 2022-05-26 Doctor University of TREATMENT 23:52:11 Unassigned, No [facility] XR KUB 2022-05-01 Marissa Keys [place] of 15:57:16 [facility] BASIC METABOLIC PANEL (NA, K, CL, 2022-04-29 [facility] of CO2, GLUCOSE, BUN, CREATININE, CA) 09:55:00 [facility] BASIC METABOLIC PANEL (NA, K, CL, 2022-04-29 [facility], [facility] of CO2, GLUCOSE, BUN, CREATININE, CA) 09:55:00 [facility] CBC WITHOUT DIFF 2022-04-28 [facility] of 17:04:00 [facility] CBC WITHOUT DIFF 2022-04-28 [facility] of 17:04:00 [facility] CBC WITHOUT DIFF 2022-04-28 [facility] of 17:04:00 [facility] MAGNESIUM 2022-04-28 [facility] of 17:03:00 [facility] BASIC METABOLIC PANEL (NA, K, CL, 2022-04-28 [facility], [facility] of CO2, GLUCOSE, BUN, CREATININE, CA) 17:03:00 [facility] BASIC METABOLIC PANEL (NA, K, CL, 2022-04-28 [facility], [facility] of CO2, GLUCOSE, BUN, CREATININE, CA) 17:03:00 [facility] MAGNESIUM 2022-04-28 [facility], [facility] of 17:03:00 [facility] BASIC METABOLIC PANEL (NA, K, CL, 2022-04-28 [facility], [facility] of CO2, GLUCOSE, BUN, CREATININE, CA) 17:03:00 [facility] INTUBATION 2022-04-28 [facility] of 14:47:00 [facility] ESOPHAGOGASTRODUODENOSCOPY 2022-04-28 [facility] ersity of 14:27:00 K [facility] ESOPHAGOGASTRODUODENOSCOPY 2022-04-28 [facility] ersity of 14:27:00 K [facility] EGD (ENDO) 2022-04-28 [facility] of 14:21:27 [facility] EGD (ENDO) 2022-04-28 [facility] of 14:21:27 [facility] POTASSIUM SERUM 2022-04-27 [facility] 22:05:00 Angie [facility] BASIC METABOLIC PANEL (NA, K, CL, 2022-04-27 [facility], [facility] of CO2, GLUCOSE, BUN, CREATININE, CA) 22:05:00 [facility] POTASSIUM SERUM 2022-04-27 [facility] of 22:05:00 [facility] BASIC METABOLIC PANEL (NA, K, CL, 2022-04-27 [facility], [facility] of CO2, GLUCOSE, BUN, CREATININE, CA) 22:05:00 [facility] POTASSIUM SERUM 2022-04-27 [facility] of 22:05:00 [facility] BASIC METABOLIC PANEL (NA, K, CL, 2022-04-27 Colunga, [facility] of CO2, GLUCOSE, BUN, CREATININE, CA) 22:05:00 [facility] BASIC METABOLIC PANEL (NA, K, CL, 2022-04-27 [facility] of CO2, GLUCOSE, BUN, CREATININE, CA) 15:10:00 [facility] BASIC METABOLIC PANEL (NA, K, CL, 2022-04-27 Sanchez, [facility] of CO2, GLUCOSE, BUN, CREATININE, CA) 15:10:00 [facility] BASIC METABOLIC PANEL (NA, K, CL, 2022-04-27 [facility] of CO2, GLUCOSE, BUN, CREATININE, CA) 15:10:00 [facility] COVID-19 (ID NOW RAPID TESTING) 2022-04-27 Charlotte Miranda of 00:04:00 [facility] LAB ONLY COVID INTERPRETATION 2022-04-27 Charlotte Miranda Un iversity of 00:04:00 [facility] COVID-19 (ID NOW RAPID TESTING) 2022-04-27 Charlotte Miranda of 00:04:00 [facility] LAB ONLY COVID INTERPRETATION 2022-04-27 Charlotte Miranda Un iversity of 00:04:00 [facility] COVID-19 (ID NOW RAPID TESTING) 2022-04-27 Charlotte Miranda of 00:04:00 [facility] LAB ONLY COVID INTERPRETATION 2022-04-27 Charlotte Miranda Un iversity of 00:04:[address] [facility] [address] THORAX W CONTRAST 2022-04-26 Charlotte Miranda of 23:01:53 [facility] CT THORAX W CONTRAST 2022-04-26 Charlotte Miranda of 23:01:53 [facility] CT THORAX W CONTRAST 2022-04-26 [facility] of 23:01:53 [facility] LIPASE 2022-04-26 Roberto [facility] of 22:45:00 [facility] MAGNESIUM 2022-04-26 Maryjane [facility] of 22:45:00 [facility] TROPONIN I 2022-04-26 [facility] of 22:45:00 [facility] COMP. METABOLIC PANEL ([id number]) 2022-04-26 Charlotte Miranda Un iversity of 22:45:00 [facility] CBC WITH DIFF 2022-04-26 [facility] of 22:45:00 [facility] N-TERMINAL PRO-BNP 2022-04-26 [facility] of 22:45:00 [facility] CBC WITH DIFF 2022-04-26 Rtuh, [facility]ck[facility] of 22:45:00 [facility] TROPONIN I 2022-04-26 [facility] of 22:45:00 [facility] N-TERMINAL PRO-BNP 2022-04-26 [facility] of 22:45:00 [facility] LIPASE 2022-04-26 [facility] of 22:45:00 [facility] COMP. METABOLIC PANEL ([id number]) 2022-04-26 Charltote Miranda Un iversity of 22:45:00 [facility] MAGNESIUM 2022-04-26 Maryjane [facility] of 22:45:00 [facility] LIPASE 2022-04-26 EbakRoberto coxBeckley [facility] of 22:45:00 [facility] MAGNESIUM 2022-04-26 Colung[place], [facility] of 22:45:00 [facility] TROPONIN I 2022-04-26 [facility] of 22:45:00 [facility] COMP. METABOLIC PANEL ([id number]) 2022-04-26 Charlotte iMranda Un iversity of 22:45:00 [facility] CBC WITH DIFF 2022-04-26 [facility] of 22:45:00 [facility] N-TERMINAL PRO-BNP 2022-04-26 Charlotte Miranda [place] of 22:45:00 [facility] HB ECG ROUTINE & RHYTHM STRIP 2022-04-26 Charlotte Miranda Un iversity of 22:15:20 [facility] HB ECG ROUTINE & RHYTHM STRIP 2022-04-26 Charlotte Miranda Un iversity of 22:15:20 [facility] HB ECG ROUTINE & RHYTHM STRIP 2022-04-26 Charlotte Miranda Un iversity of 22:15:20 [facility] XR CHEST 1 VW 2022-04-26 [facility] of 21:18:17 [facility] XR CHEST 1 VW 2022-04-26 [facility] of 21:18:17 [facility] XR CHEST 1 2022-04-26 [facility] of 21:18:17 [facility] CONSENT/REFUSAL FOR DIAGNOSIS AND 2022-04-26 [facility] 20:55:28 Unassigned, No [facility] CONSENT/REFUSAL FOR DIAGNOSIS AND 2022-04-26 [facility] 20:55:28 Unassigned, No [facility] CONSENT/REFUSAL FOR DIAGNOSIS AND 2022-04-26 [facility] 20:55:28 Unassigned, No [facility] SURGICAL PATHOLOGY EXAM 2022-03-12 Negrito Shaver [facility] ty of 15:50:00 [facility] INTUBATION 2022-03-12 Herman [place] of 14:53:00 Dee Dee [facility] INGUINAL HERNIORRHAPHY 2022-03-12 Negrito Shaver [facility] y of 14:34:00 [facility] OPEN APPENDECTOMY 2022-03-12 Negrito Shaver [place] of 14:34:00 [facility] DAY SURGERY - ADC 2022-03-12 [facility] of 05:01:00 Unassigned, No [facility] CONSENT/REFUSAL FOR DIAGNOSIS AND 2022-03-09 [facility] 20:29:26 Unassigned, No [facility] ASSIGNMENT OF BENEFITS 2022-03-09 [facility] y of 20:29:06 Unassigned, No [facility] COVID-19 (ID NOW RAPID TESTING) 2022-03-09 Negrito Shaver [facility] of 20:27:00 [facility] LAB ONLY COVID INTERPRETATION 2022-03-09 Negrito Shaver Un iversity of 20:27:00 [facility] NOTICE OF PRIVACY PRACTICES 2022-03-09 Doctor [facility] ersity of 20:22:10 Unassigned, No [facility] CONSENT/REFUSAL FOR DIAGNOSIS AND 2022-03-09 [facility] of TREATMENT 20:21:53 Unassigned, No [facility] ASSIGNMENT OF BENEFITS 2022-03-09 Doctor Universit y of 20:21:32 Unassigned, No [facility] DISCLOSURE AND CONSENT, MEDICAL 2022-03-05 [facility] of AND SURGICAL PROCEDURES 05:01:00 Unassigned, No [facility] dical Name Branch INTUBATION 2022-02-25 Puma Sandy [place] of 17:01:00 [facility] HB ABO GROUPING 2022-02-25 Stephanie Galvez [place] of 15:52:00 [facility] CONSENT/REFUSAL FOR DIAGNOSIS AND 2022-02-25 [facility] TREATMENT 13:23:24 Unassigned, No [facility] COVID-19 (ID NOW RAPID TESTING) 2022-02-25 Zander Howe [place] of 13:18:00 [facility] LAB ONLY COVID INTERPRETATION 2022-02-25 Zander Howe Un iversity of 13:18:00 [facility] ASSIGNMENT OF BENEFITS 2022-02-25 Doctor Universit y of 13:04:20 Unassigned, No [facility] DAY SURGERY - MANVEL 2022-02-25 [facility] of 05:01:00 Unassigned, No [facility] REFERRAL- REQUEST/RESPONSE 2022-02-18 [facility] 05:01:00 Unassigned, No [facility] XR CHEST 2 VW 2022-02-04 Liv Boucher [place] of 20:28:00 [facility] CBC WITH DIFF 2022-02-04 Liv Boucher of 20:11:00 [facility] BASIC METABOLIC PANEL (NA, K, CL, 2022-02-04 Liv Boucher of CO2, GLUCOSE, BUN, CREATININE, CA) 20:11:00 [facility] HEPATIC FUNCTION PANEL ([id number]) 2022-02-04 Liv Boucher niversity of (ALB,T.PRO,BILI 20:11:00 [facility] T,BU/BC,ALT,AST,ALK PHOS) Branch PREALBUMIN, SERUM 2022-02-04 iLv Boucher [facility] 20:11:00 [facility] Plan of Care Planned Activity Planned Date Details Comments Source Future Scheduled Test 2022-07-24 00:00:00 IMM Influenza [facility] Seasonal (>/= 19 yrs) [code = IMM Influenza Seasonal (>/= 19 yrs)] Future Scheduled Test 2022-07-24 00:00:00 IMM Influenza [facility] Seasonal (>/= 19 yrs) [code = IMM Influenza Seasonal (>/= 19 yrs)] Future Scheduled Test 2022-07-24 00:00:00 IMM Influenza [facility] Seasonal (>/= 19 yrs) [code = IMM Influenza Seasonal (>/= 19 yrs)] Future Scheduled Test 2022-07-24 00:00:00 IMM Influenza [facility] Seasonal (>/= 19 yrs) [code = IMM Influenza Seasonal (>/= 19 yrs)] Future Scheduled Test 2022-07-24 00:00:00 IMM Influenza [facility] Seasonal (>/= 19 yrs) [code = IMM Influenza Seasonal (>/= 19 yrs)] Future Scheduled Test 2022-07-24 00:00:00 IMM Influenza [facility] Seasonal (>/= 19 yrs) [code = IMM Influenza Seasonal (>/= 19 yrs)] Future Scheduled Test 2022-07-24 00:00:00 IMM Influenza [facility] Seasonal (>/= 19 yrs) [code = IMM Influenza Seasonal (>/= 19 yrs)] Future Scheduled Test 2022-07-24 00:00:00 IMM Influenza [facility] Seasonal (>/= 19 yrs) [code = IMM Influenza Seasonal (>/= 19 yrs)] Future Scheduled Test 2021-07-24 00:00:00 IMM Influenza [facility] Seasonal Jul to December (>/= 19 yrs) [code = IMM Influenza Seasonal Oct to December (>/= 19 yrs)] Future Scheduled Test 1996 00:00:00 COVID-19 Vaccine (1) [facility] [code = COVID-19 Vaccine (1)] Future Scheduled Test 1984 00:00:00 COVID-19 Vaccine (#1) [facility] [code = COVID-19 Vaccine (#1)] Future Scheduled Test 1984 00:00:00 COVID-19 Vaccine (#1) [facility] [code = COVID-19 Vaccine (#1)] Future Scheduled Test 1984 00:00:00 COVID-19 Vaccine (#1) [facility] [code = COVID-19 Vaccine (#1)] Future Scheduled Test 1984 00:00:00 COVID-19 Vaccine (#1) [facility] [code = COVID-19 Vaccine (#1)] Future Scheduled Test 1984 00:00:00 COVID-19 Vaccine (#1) [facility] [code = COVID-19 Vaccine (#1)] Future Scheduled Test 1984 00:00:00 COVID-19 Vaccine (#1) [facility] [code = COVID-19 Vaccine (#1)] Future Scheduled Test 1984 00:00:00 COVID-19 Vaccine (#1) [facility] [code = COVID-19 Vaccine (#1)] Future Scheduled Test 1984 00:00:00 COVID-19 Vaccine (#1) [facility] [code = COVID-19 Vaccine (#1)] Future Scheduled Test 1984 00:00:00 Fluoride Varnish [facility] [code = Fluoride Varnish] Future Scheduled Test 1984 00:00:00 Fluoride Varnish [facility] [code = Fluoride Varnish] Future Scheduled Test 1984 00:00:00 Fluoride Varnish [facility] [code = Fluoride Varnish] Future Scheduled Test 1984 00:00:00 Fluoride Varnish [facility] [code = Fluoride Varnish] Future Scheduled Test 1984 00:00:00 Fluoride Varnish [facility] [code = Fluoride Varnish] Future Scheduled Test 1984 00:00:00 Fluoride Varnish [facility] [code = Fluoride Varnish] Future Scheduled Test 1984 00:00:00 Fluoride Varnish [facility] [code = Fluoride Varnish] Future Scheduled Test 1984 00:00:00 Fluoride Varnish [facility] [code = Fluoride Varnish] Encounters Start End Encounter Admission Attending Care Care Encounter Source Date/Time Date/Time Type Type Clinicians Facility Department ID 2022-05-18 Outpatient [facility] [id number] [place] 14:53:18 [id number] [facility] 2022-01-18 Outpatient [facility] [id number] [place] 04:45:38 [id number] [facility] 2020-10-19 Inpatient X [facility]Y [facility] [id number] Univers 02:37:00 AMBAR [facility] 2020-10-06 Inpatient HCAPM JOSE [id number] [facility] 00:50:00 11 [facility] 2023-02-08 2023-02-08 Outpatient R [facility] [id number] Univers 09:00[facility]00 [facility]-23 2022-08-23 Outpatient R [facility] [id number] Univers 14:00:00 14:00:00 [place] [facility] 2022-08-10 2022-08-10 Office Genie Laureano UNIVERSI T 1.2.840.114 [id number] Univers 09:00:00 09:30:00 Visit Dariel Hu [facility] 350.1.13. 10 ity of [facility] 4.2.7.2.686 [facility] [id number] [address] 2022-08-10 2022-08-10 Outpatient R FRITZ [facility] [id number] Univers 09:00:00 09:00:00 DARIEL [facility] 2022-07-09 2022-07-20 Inpatient X MARYANNEROBERT [facility] MAYI [id number] Univers 18:43:00 16:45:00 JORDEN [facility] 2022-07-09 2022-07-20 [facility] Iram Payne [facility] 1.2.84 0.114 [id number] Univers 18:43:00 16:45:00 Encounter Lupillo Taylor 350.1.13.10 ity of Zachary Li 4.2.7.2.686 [place] [facility] [id number] [address] 2022-07-12 2022-07-12 Outpatient R [facility] [id number] Univers 13:30:00 13:30:00 ity [facility] 2022-07-11 2022-07-11 Surgery [facility] 1.2.840.114 [id number] Univers 13:00:00 21:28:00 German ALEXIARL 350.1.13.10 i ty of [place] [phone] [facility] [address] 2022-06-04 2022-06-04 Telephone YARELI Capps 1.2.840.114 [id number] Univers 00:00:00 00:00:00 Williamsvannessa Mcdaniel [facility] 350.1.13.10 ity of CL[place] [id number] [facility] [address] 2022-05-26 2022-05-26 Emergency X TASHI [facility] ERT [id number] Univers 19:02:00 22:40:00 CINDY ity of [facility] 2022-05-26 2022-05-26 Emergency Janene Taylor [facility] 1.2.840. 114 [id number] Univers 19:02:00 22:40:00 Cindy Akins [place] 350.1.13.10 it[place] [id number] [facility] [address] 2022-05-05 2022-05-05 Transition SHARON Araujo 1.2.840.114 [id number] Univers 00:00:00 00:00:00 of Care Henrietta WILSON 350.1.13.10 ity of [place].2.7.2.[place] [id number] [facility] [address] 2022-04-26 2022-05-04 Inpatient X AMELIE ALMEIDA [facility] [id number] Univers 16:01:00 12:18:00 AMELIE ALMEIDA ity [facility] 2022-04-26 2022-05-04 [facility] KarenkennyCharlotte [facility] 1.2.840.11 [id number] Univers 16:01:00 12:18:00 Encounter Amy Santana [facility] 350.1. 13.10 ity of [place] 4.2.7.2.686 [facility] [phone] Medical [address] ([facility] [facility] [facility]) 2022-04-28 2022-04-28 Anesthesia Gayle Lino 1.2.840.1 1 [id number] Univers 09:38:00 10:28:00 Event Radu Schroeder 23251.1.1 ity of 3.104.2.7 [place] .3.103967 Medica l .8 [place] 2022-04-28 2022-04-28 [facility] 1.2.840.114 [id number] Univers 09:30:00 10:01:00 Derrell Watters SPECIALTY 350.1.13.10 ity of CARE 4.2.7.2.686 [facility] AT [id number] [address] 2022-04-27 2022-04-27 Anesthesia Fawn Johnson 1.2.840.1 [id number] Univers 12:29:50 12:29:50 Event SanchezRaoulSabrina Angie 18496.1.1 ity of 3.104.2.7 [place] .3.008381 Medica l .8 [place] 2022-04-26 2022-04-26 Travel 1.2.840.1 1.2.438.515 [id number] Univers 00:00:00 00:00:00 42901.1.1 350.1.13.10 ity of 3.104.2.7 4.[place].7.3.698 [place] .3.279094 084.8 Medica l .8 [place] 2022-04-05 2022-04-05 Telephone Catrett, 1.2.840.0 [id number] Univers 00:00:00 00:00:00 Mitzy 51057.1.1 ity of 3.104.2.7 [place] .3.806789 Medica l .8 [place] 2022-04-02 2022-04-02 Office Sivakumar [facility] 1.2.840.114 [id number] Univers 11:45:00 11:45:00 Visit Negrito BRIONES 350.1.13.10 i ty of [place] 4.2.7.2.686 [place] PROFESSIO [id number] Ri dical NAL 188 [facility] 2022-04-02 2022-04-02 Office Sivakumar, 1.2.840.9 [id number] Univers 11:45:00 11:45:00 Visit Negrito 21316.1.1 ity of [place] 3.104.2.7 [place] .3.887077 Medica l .8 [place] 2022-04-02 2022-04-02 Outpatient R SIVAKUMAR, [facility] [id number] Univers 11:45:00 11:33:03 NEGRITO ity of [facility] 2022-04-02 2022-04-02 Travel 1.2.840.1 1.2.747.896 0229 [id number] Univers 00:00:00 00:00:00 17588.1.1 350.1.13.10 ity of 3.104.2.7 4.[place].7.3.698 [place] .3.725509 084.8 Medica l .8 [place] 2022-03-24 2022-03-24 Telephone Zander Howe [facility] 1.2.840.114 [id number] Univers 00:00:00 00:00:00 Y HEALTH 350.1.13.10 i ty of CL[place] 4.2.7.2.[place] [id number] [facility] [address] [place] 2022-03-24 2022-03-24 Zander Mcguire 1.2.840.9 [id number] Univers 00:00:00 00:00:00 25838.1.1 ity of 3.104.2.7 [place] .3.726549 Medica l .8 [place] 2022-03-19 2022-03-19 Telephone Zander Howe 1.2.840.114 [id number] Univers 00:00:00 00:00:00 NAMRATA 350.1.13.10 it y of HOSPITAL 4.2.7.2.686 [place] [id number] [facility] [address] 2022-03-19 2022-03-19 Telephone Zander Howe 1.2.840.5 [id number] Univers 00:00:00 00:00:00 01871.1.1 ity of 3.104.2.7 [place] .3.096539 Medica l .8 [place] 2022-03-12 2022-03-12 Outpatient [facility] STEPHANIE [id number] Univers 08:13:00 16:20:00 NEGRITO ity of [facility] 2022-03-12 2022-03-12 [facility] 1.2.840.114 [id number] Univers 08:13:00 16:20:00 Encounter Negrito BRIONES 350.1.13.10 ity of [place] 4.2.7.2.[place] SUR[place]ICAL [id number] [facility] ical CENTER [address] [place] 2022-03-12 2022-03-12 Hospital Sivakumar, 1.2.840.1 [id number] Univers 08:13:00 16:20:00 Encounter Negrito 15757.1.1 it y of [place] 3.104.2.7 [place] .3.577660 Medica l .8 [place] 2022-03-12 2022-03-12 Anesthesia Carley Fregoso 1.2.840.1 [id number] Univers 09:44:00 12:14:00 Event [place]Richard hunt 47750.1.1 ity of 3.104.2.7 [place] .3.535984 Medica l .8 [place] 2022-03-12 2022-03-12 Surgery [facility] 1.2.840.114 [id number] Univers 09:54:00 12:12:00 Negrito BRIONES 350.1.13.10 i ty of [place] 4.2.7.2.[place] SURGICAL [id number] Med ical CENTER 020 [place] 2022-03-12 2022-03-12 Surgery [place], 1.2.840.0 [id number] Univers 09:54:00 12:12:00 Negrito 94857.1.1 ity of [place] 3.104.2.7 [place] .3.100144 Medica l .8 [place] 2022-03-09 2022-03-09 Laboratory Only, Adc Test [facility] 1.2.840. 114 [id number] Univers 10:15:00 10:30:00 Only SivakumarNegrito ANALI 350.1.13 .10 ity of [place] 4.2.7.2.686 [facility] [id number] [facility] [address] [place] 2022-03-09 2022-03-09 Laboratory Negrito Shaver 1.2.840.0 [id number] Univers 10:15:00 10:30:00 Only Only, Adc Test 11281.1.1 ity of 3.104.2.7 [place] .3.509072 Medica l .8 [place] 2022-03-09 2022-03-09 Outpatient Lisa SHAVER [facility] [id number] Univers 10:15:00 10:15:00 NEGRITO aaron [facility] 2022-03-09 2022-03-09 Travel 1.2.840.1 1.2.367.927 [id number] [id number] Univers 00:00:00 00:00:00 65141.1.1 350.1.13.10 ity of 3.104.2.7 4.2.7.3.698 [place] .3.610229 084.8 Medica l .8 [place] 2022-03-05 2022-03-05 Outpatient Lisa SHAVER [facility] [id number] Univers 10:15:00 12:01:28 NEGRITO aaron [facility] 2022-03-05 2022-03-05 Office [facility] 1.2.840.114 [id number] Univers 10:15:00 12:01:28 Visit Negrito BRIONES 350.1.13.10 i ty of [place] 4.2.7.2.686 [facility] [id number] Ri dical NAL 188 [facility] 2022-03-05 2022-03-05 Outpatient [facility] [id number] Univers 10:15:00 12:01:28 NEGRITO aaron [facility] 2022-03-05 2022-03-05 Office Sivakumar, Lillian.2.840.4 [id number] Univers 10:15:00 12:01:28 Visit Negrito 20182.1.1 ity of [place] 3.104.2.7 [place] .3.434245 Medica l .8 [place] 2022-03-05 2022-03-05 Outpatient R SIVAKUMAR, [facility] [id number] Univers 10:15:00 10:15:00 NEGRITO ity of [facility] 2022-02-25 2022-02-25 Outpatient R ZANDER HOWE [facility] [id number] Univers 08:04:00 13:21:00 ity of [facility] 2022-02-25 2022-02-25 [facility] Zander Howe 1.2.840.114 [id number] Univers 08:04:00 13:21:00 Encounter NAMRATA 350.1.13.10 ity of [facility] 4.2.7.2.686 [place] as [id number] [facility] [address] [place] 2022-02-25 2022-02-25 Hospital Zander Howe 1.2.840.6 [id number] Univers 08:04:00 13:21:00 Encounter 21997.1.1 it y of 3.104.2.7 [place] .3.838177 Medica l .8 [place] 2022-02-25 2022-02-25 Surgery Zander Howe 1.2.923.506 5795 1970 Univers 09:35:00 12:45:00 NAMRATA 350.1.13.10 it y of [facility] 4.2.7.2.686 [place] as [id number] [facility] [address] [place] 2022-02-25 2022-02-25 Surgery Zander Howe 1.2.840.0 [id number] Univers 09:35:00 12:45:00 09523.1.1 ity of 3.104.2.7 [place] .3.892408 Medica l .8 [place] 2022-02-25 2022-02-25 Anesthesia Yung Arita 1.2.840.8 019 [id number] Univers 11:53:00 12:33:00 Event Francis Wong 48201.1.1 ity of 3.104.2.7 [place] .3.056928 Medica l .8 [place] 2022-02-24 2022-02-24 Travel 1.2.840.1 1.2.983.596 0969 3784 Univers 00:00:00 00:00:00 28996.1.1 350.1.13.10 ity of 3.104.2.7 4.2.7.3.698 [place] .3.341128 084.8 Medica l .8 [place] 2022-02-18 2022-02-18 Orders Doctor NEGRITO 1.2.840.114 [id number] Univers 00:00:00 00:00:00 Only Unassigned, NAMRATA 350.1.13.10 ity of [place] [facility] 4.2.7.2.686 Roc as [id number] [facility] 00[address] [place] 2022-02-18 2022-02-18 Orders Doctor 1.2.840.5 [id number] Univers 00:00:00 00:00:00 Only Unassigned, 37076.1.1 ity of [place] 3.104.2.7 [place] .3.910864 Medica l .8 [place] 2022-02-15 2022-02-15 Telephone [place] 1.2.277.311 6521 3841 Univers 00:00:00 00:00:00 Stephanie TERESA 350.1.13.10 ity of HOSPITAL 4.2.7.2.686 [place] [id number] [facility] [address]37 [place] 2022-02-15 2022-02-15 Telephone [place] Yanira2.840.4 [id number] 31362 Univers 00:00:00 00:00:00 Stephanie L 27395.1.1 it y of 3.104.2.7 [place] .3.532004 Medica l .8 [place] 2022-02-09 2022-02-09 Telephone [place] 1.2.540.318 [id number] 0554 Univers 00:00:00 00:00:00 Stephanie MCKENNAY 350.1.13.10 ity of HOSPITAL 4.2.7.2.686 [place] [id number] [facility] [address] [place] 2022-02-09 2022-02-09 Telephone [place], 1.2.840.8 [id number] [id number] Univers 00:00:00 00:00:00 Stephanie Rose 70940.1.1 it y of 3.104.2.7 [place] .3.352394 Medica l .8 [place] 2022-02-08 2022-02-08 Case NEGRITO Galvez 1.2.840.114 [id number] Univers 00:00:00 00:00:00 Management Stephanie TERESA 350.1.13.10 ity of HOSPITAL 4.2.7.2.686 [place] [id number] [facility] [address] [place] 2022-02-08 2022-02-08 Case Sade, 1.2.840.9 [id number] 687 Univers 00:00:00 00:00:00 Management Stephanie Rose 55969.1.1 ity of 3.104.2.7 [place] .3.089423 Medica l .8 [place] 2022-02-04 2022-02-04 [facility] UNIVERSIT 1.2.840.114 [id number] Univers 15:17:56 23:59:00 Encounter Y HEALTH 350.1.13.10 ity of [place] 4.2.[place] 155.4746100 [facility] 807 [place] 2022-02-04 2022-02-04 [facility] 1.2.840.0 [id number] Univers 15:17:56 23:59:00 Encounter 59973.1.1 it y of 3.104.2.7 [place] .3.606291 Medica l .8 [place] 2022-02-04 2022-02-04 Mft [facility] 1.2.840.7 [id number] Univers 15:30:00 15:47:42 Visit [facility] 08928.1.1 ity of 3.104.2.7 [place] .3.087732 Medica l .8 [place] 2022-02-04 2022-02-04 Mft [facility] UNIVERSIT 1.2.840.114 9 [id number] Univers 15:30:00 15:45:00 Visit [facility] Y HEALTH 350.1.13.10 ity of [place] 4.2.7.2.[place] [id number] [facility] [address] 2022-02-04 2022-02-04 Outpatient ZANDER CONTRERAS [facility] [id number] Univers 13:30:00 14:38:59 ity of [facility] 2022-02-04 2022-02-04 Office Zander Howe UNIVERSIT 1.2.840.114 [id number] Univers 13:30:00 14:38:59 Visit Y HEALTH 350.1.13.10 i ty of [place] 4[place] [id number] [facility] 185 [place] 2022-02-04 2022-02-04 Outpatient R ZANDER HOWE [facility] [id number] Univers 13:30:00 14:38:59 ity of [facility] 2022-02-04 2022-02-04 Office Zander Howe 1.2.840.6 [id number] [id number] Univers 13:30:00 14:38:59 Visit 84345.1.1 ity of 3.104.2.7 [place] .3.234228 Medica l .8 [place] 2022-02-04 2022-02-04 Travel 1.2.840.1 1.2.211.623 0347 6099 Univers 00:00:00 00:00:00 38810.1.1 350.1.13.10 ity of 3.104.2.7 4.2.7.3.698 [place] .3.187466 084.8 Medica l .8 [place] 2022-01-14 2022-01-14 Outpatient Lisa ZANDER HOWE [facility] [id number] Univers 14:45:00 14:45:00 ity of [facility] 2021-12-31 2021-12-31 Outpatient Lisa HOWEAZNDER [facility] [id number] Univers 15:45:00 15:45:00 ity of [facility] 2021-12-17 2021-12-17 Outpatient Lisa HOWEZANDER [facility] [id number] Univers 14:30:00 14:30:00 ity of [facility] 2021-11-14 2021-11-15 Outpatient X RABIA [facility] MAYI [id number] Univers 17:45:00 18:29:00 ADNAN ity [facility] 2021-11-14 2021-11-15 [facility] Nilo Guillaume [facility] 1.2.8 40.114 [id number] Univers 17:45:00 18:29:00 Encounter Dotty CamarilloRL 350.1.13.10 ity of [place] 4.2.7.2.686 [place] [facility] [id number] [place] [id number] [place] 2021-11-14 2021-11-15 Outpatient X RABIA [facility] MAYI [id number] Univers 17:45:00 18:29:00 ADNAN [facility] 2021-11-12 2021-11-12 Outpatient R ZANDER HOWE [facility] [id number] Univers 14:15:00 14:19:16 [facility] 2021-11-12 2021-11-12 Office Zander Howe UNIVERSIT 1.2.840.114 [id number] Univers 14:15:00 14:19:16 Visit Y HEALTH 350.1.13.10 i ty [facility] 4.2.7.2.686 [facility] [id number] [facility] [address] [place] 2021-11-12 2021-11-12 Outpatient R ZANDER HOWE [facility] [id number] Univers 14:15:00 14:19:16 [facility] 2021-11-02 2021-11-02 Emergency X [facility] ERT [id number] Univers 14:12:00 17:29:00 HARVEY ity [facility] 2021-11-02 2021-11-02 Emergency [facility] 1.2.527.314 [id number] Univers 14:12:00 17:29:00 Harvey Lisa HALERL 350.1.13.10 i ty of [facility] 4.2.7.2.686 [place] [facility] [phone] [facility] [address] 2021-09-22 2021-09-22 Imm/Inj Vaccine, [facility] B 1.2.840.114 [id number] Univers 12:00:25 12:10:25 Visit Thai Arita SPECIALTY 350.1.13.10 ity of [place] 4.2.7.2.[place] C[place] AT [phone] Ri stephanie Roe [facility] 2021-09-22 2021-09-22 Office Negrito [facility] 1.2.840.114 [id number] Univers 10:00:00 10:30:00 Visit Tyrone SPECIALTY 350.1.13.10 ity of [place] CARE 4.2.7.2.686 [place] as CENTER AT [id number] Ri stephanie Roe [facility] 2021-09-22 2021-09-22 Outpatient R NEGRITO [facility] [id number] Univers 10:00:00 10:00:00 TYRONE ity of [facility] 2021-09-22 2021-09-22 Orders Doctor MAHAN 1.2.840.114 [id number] Univers 00:00:00 00:00:00 Only Unassigned, NAMRATA 350.1.13.10 ity of [place] [facility] 4.2.7.2.686 [place] as [id number] [address] 2021-06-19 2021-06-19 Orders Doctor MAHAN 1.2.840.114 [id number] Univers 00:00:00 00:00:00 Only Unassigned, NAMRATA 350.1.13.10 ity of [place] [facility] 4.2.7.2.686 [place] [id number] [address] 2021-05-25 2021-05-26 Emergency Janene Taylor [facility] 1.2.840.114 [id number] 18:28:00 00:07:00 Misa Briones 350.1.13.10 [place] 4.2.7.2.686 [place] [id number] 084 2021-05-25 2021-05-25 Emergency X Janene TAYLOR [facility] ERT [id number] Univers 18:28:00 18:28:00 ity [facility] 2020-12-19 2020-12-19 Orders Doctor MAHAN 1.2.840.114 [id number] 00:00:00 00:00:00 Only Unassigned, NAMRATA 350.1.13.10 [place] [facility] [facility] 4.2.7.2.686 [id number] 009 2020-11-28 2020-11-28 Patient Sharon Bunn 1.2.840.114 [id number] 00:00:00 00:00:00 Outreach Micki Wilson 350.1.13.10 [place] 4.2.7.2.686 [id number] 403 2020-11-27 2020-11-27 Telephone Angie Aguilar 1.2.508.871 [id number] 3088 00:00:00 00:00:00 Gianni Teresa 350.1.13.10 [place] [address].2.7.2.686 [id number] 093 2020-10-19 2020-11-23 Inpatient X LOS [facility] MAYI [id number] Univers 02:37:00 19:15:00 HARVEY [facility] 2020-10-06 2020-10-06 Outpatient Jose, CHELSIECL LABO [id number] [facility] 23:33:00 23:33:00 [facility] 2020-10-04 2020-10-04 Emergency X DA PUTNAM [facility] ERT 1 [id number] Univers 14:21:00 14:21:00 JERSEY RAJBatshevaKRISTIAN [facility] 2020-10-03 2020-10-03 Emergency X [facility] ERT [id number] Univers 21:22:00 21:22:00 ity [facility] 2020-10-02 2020-10-02 Emergency X [facility] ERT [id number] Univers 16:14:00 16:14:00 ity [facility] 2020-09-26 2020-09-26 Emergency X ROSANNA [facility] ERT [id number] Univers 09:58:00 09:58:00 GUSTAVO [facility] 2020-09-20 2020-09-20 Emergency X KERRY [facility] ERT [id number] Univers 13:37:00 13:37:00 IRAM [facility] 2020-08-23 2020-08-23 Emergency X [facility] ERT [id number] Univers 17:57:00 17:57:00 [facility] 2020-05-02 2020-05-02 Emergency X [facility] ERT [id number] Univers 02:13:00 02:13:00 [facility] Results Test Description Test Time Test Comments Results Result Comments Source POCT GLUCOSE (AUTOMATED) 2022-07-20 17:02:07 Test Item Value Reference Range Interpretation Comme nts POCT GLU (test code = 4282563255) 92 mg/dL 70-110 Lab Interpretation (test code = 15968-6) [facility]20 13:05:47 Test Item Value Reference Range Interpretation Comments POCT GLU (test code = 9866533129) 93 mg/dL 70-110 Lab Interpretation (test code = Normal 19134-6) [facility] GLUCOSE (AUTOMATED)2022-07-20 04:43:03 Test Item Value Reference Range Interpretation Comments POCT GLU (test code = 3841556405) 86 mg/dL 70-110 Lab Interpretation (test code = Normal 03138-1) [facility]2022-07-20 00:59:10 Test Item Value Reference Range Interpretation Comments POCT GLU (test code = 1054853363) 82 mg/dL 70-110 Lab Interpretation (test code = Normal 04317-8) [facility] GLUCOSE (AUTOMATED)2022-07-19 22:05:07 Test Item Value Reference Range Interpretation Comments POCT GLU (test code = 0628439869) 92 mg/dL 70-110 Lab Interpretation (test code = Normal 55160-1) [facility] GLUCOSE (AUTOMATED)2022-07-19 17:04:37 Test Item Value Reference Range Interpretation Comments POCT GLU (test code = 7137461828) 82 mg/dL 70-110 Lab Interpretation (test code = Normal 78731-2) [facility]22-[facility]-26 15:57:55 Test Item Value Reference Range Interpretation Comments PHOSPHORUS (test code = 1809754260) 1.9 mg/dL 2.5-5 L Lab Interpretation (test code = Abnormal 69416-5) [facility] [id number] 14:58:38 Test Item Value Reference Range Interpretation [...] RDW-SD (test code = 50.6 fL 38.5-51.6 54260-0) RDW-CV (test code = 15.6 % 12.1-15.4 H 788-0) PLT (test code = See_Comment [Automated 777-3) message] The sy stem which generated this result transmitted reference range : 150 - 328 10*3/ ?L. The reference r alisson was not used to interpret this result as normal/abnormal . MPV (test code = 12.4 fL 9.8-13 09038-9) NRBC/100 WBC (test See_Comment [Automat ed code = 0512066590) message] The system which generated this result transmitted reference range : 0.0 - 10.0 /100 WBCs. The refer ence range was not u sed to interpret th is result as normal/abnormal . NRBC x10^3 (test code See_Comment [Auto mated = 1356635437) message] The s ystem which generated this result transmitted reference range : 10*3/?L. The reference range was not used to interpret this result as normal/abnormal . GRAN MAT (NEUT) % 51.4 % (test code = 770-8) IMM GRAN % (test code 0.30 % = 5331999261) LYMPH % (test code = 37.0 % 736-9) MONO % (test code = 9.4 % 5905-5) EOS % (test code = 1.6 % 713-8) BASO % (test code = 0.3 % 706-2) GRAN MAT x10^3(ANC) 1.96 10*3/uL 1.99-6.95 L (test code = 0481774735) IMM GRAN x10^3 (test 0-0.06 code = 9190150778) LYMPH x10^3 (test code 1.41 10*3/uL 1.09-3.23 = 731-0) MONO x10^3 (test code 0.36 10*3/uL 0.36-1.02 = 742-7) EOS x10^3 (test code = 0.06 10*3/uL 0.06-0.53 711-2) BASO x10^3 (test code 0.01-0.09 = 704-7) ELLIPTO/OVAL (test 2+ See_Comment A [Automat ed code = 45944-4) message] The system which generated this result transmitted reference range : (none). The reference range was not used to interpret this result as normal/abnormal . REACT LYMPHS (test Rare code = 9668280909) GIANT PLATELETS (test Present See_Comment A [Auto mated code = 5908-9) message] The system which generated this result transmitted reference range : (none). The reference range was not used to interpret this result as normal/abnormal . Lab Interpretation Abnormal (test code = 28752-1) [facility] 12:58:00 Test Item Value Reference Range Interpretation Comments POCT GLU (test code = 5411771851) 93 mg/dL 70-110 Lab Interpretation (test code = Normal 85775-1) [facility] METABOLIC PANEL (NA, K, CL, CO2, GLUCOSE, BUN, CREATININE, CA)2022-07-19 11:17:35 Test Item Value Reference Range Interpretation Comments NA (test code = 136 mmol/L 135-145 7864784937) K (test code = 4.6 mmol/L 3.5-5 0244613034) CL (test code = 104 mmol/L 98-108 9215509361) CO2 TOTAL (test code = 29 mmol/L 23-31 8208102328) AGAP (test code = 2-16 7397235071) BUN (test code = 10 mg/dL 7-23 1620665051) GLUCOSE (test code = 82 mg/dL 70-110 3906127619) CREATININE (test code = 0.34 mg/dL 0.6-1.25 L 2638361280) CALCIUM (test code = 7.4 mg/dL 8.6-10.6 L 5723952144) eGFR (test code = mL/min/1.73m2 3311301741) LU (test code = LU) Association of [...] tests). Lab Interpretation Abnormal (test code = 68933-1) [facility]:13:05 Test Item Value Reference Range Interpretation Comments POCT GLU (test code = 9188457855) 94 mg/dL 70-110 Lab Interpretation (test code = Normal 21093-4) [facility] GLUCOSE (AUTOMATED)2022-07-19 06:14:35 Test Item Value Reference Range Interpretation Comments POCT GLU (test code = 3418694742) 82 mg/dL 70-110 Lab Interpretation (test code = Normal 44883-8) [facility] GLUCOSE (AUTOMATED)2022-07-19 02:01:34 Test Item Value Reference Range Interpretation Comments POCT GLU (test code = 3418427222) 90 mg/dL 70-110 Lab Interpretation (test code = Normal 39883-8) [facility] GLUCOSE (AUTOMATED)2022-07-18 21:21:09 Test Item Value Reference Range Interpretation Comments POCT GLU (test code = 4318651129) 84 mg/dL 70-110 Lab Interpretation (test code = Normal 65225-0) [facility] GLUCOSE (AUTOMATED)2022-07-18 16:34:48 Test Item Value Reference Range Interpretation Comments POCT GLU (test code = 1428929154) 79 mg/dL 70-110 Lab Interpretation (test code = Normal 11485-3) [facility] GLUCOSE (AUTOMATED)2022-07-18 13:16:05 Test Item Value Reference Range Interpretation Comments POCT GLU (test code = 9728784032) 81 mg/dL 70-110 Lab Interpretation (test code = Normal 52793-2) [facility] METABOLIC PANEL (NA, K, CL, CO2, GLUCOSE, BUN, CREATININE, CA)2022-07-18 11:18:39 Test Item Value Reference Range Interpretation Comments NA (test code = 136 mmol/L 135-145 2079124609) K (test code = 4.2 mmol/L 3.5-5 6098762563) CL (test code = 106 mmol/L 98-108 9503943312) CO2 TOTAL (test code = 31 mmol/L 23-31 1645962350) AGAP (test code = 2-16 L 8865194220) BUN (test code = 6 mg/dL 7-23 L 6128567310) GLUCOSE (test code = 87 mg/dL 70-110 5619946077) CREATININE (test code = 0.39 mg/dL 0.6-1.25 L 3522080739) CALCIUM (test code = 7.3 mg/dL 8.6-10.6 L 1918684400) eGFR (test code = mL/min/1.73m2 4319545528) LU (test code = LU) Association of [...] tests). Lab Interpretation Abnormal (test code = 73801-6) [facility]:04 Test Item Value Reference Range Interpretation Comments MAGNESIUM (test code = 2076541630) 1.5 mg/dL 1.7-2.4 L Lab Interpretation (test code = Abnormal 49178-3) [facility] 11:16:44 Test Item Value Reference Range Interpretation Comments PHOSPHORUS (test code = 5899336383) 1.8 mg/dL 2.5-5 L Lab Interpretation (test code = Abnormal 57727-6) [facility] GLUCOSE (AUTOMATED)2022-07-18 10:10:02 Test Item Value Reference Range Interpretation Comments POCT GLU (test code = 5126917543) 92 mg/dL 70-110 Lab Interpretation (test code = Normal 48630-9) [facility] GLUCOSE (AUTOMATED)2022-07-18 06:20:53 Test Item Value Reference Range Interpretation Comments POCT GLU (test code = 5758975740) 84 mg/dL 70-110 Lab Interpretation (test code = Normal 89761-9) [facility] GLUCOSE (AUTOMATED)2022-07-18 01:45:08 Test Item Value Reference Range Interpretation Comments POCT GLU (test code = 2648650116) 76 mg/dL 70-110 Lab Interpretation (test code = Normal 02455-6) [facility] GLUCOSE (AUTOMATED)2022-07-17 21:42:53 Test Item Value Reference Range Interpretation Comments POCT GLU (test code = 8359087441) 81 mg/dL 70-110 Lab Interpretation (test code = Normal 00588-6) [facility] GLUCOSE (AUTOMATED)2022-07-17 21:42:48 Test Item Value Reference Range Interpretation Comments POCT GLU (test code = 0875749118) 81 mg/dL 70-110 Lab Interpretation (test code = Normal 35095-4) [facility] GLUCOSE (AUTOMATED)2022-07-17 16:49:36 Test Item Value Reference Range Interpretation Comments POCT GLU (test code = 4102788199) 90 mg/dL 70-110 Lab Interpretation (test code = Normal 97363-0) [facility] GLUCOSE (AUTOMATED)2022-07-17 13:06:55 Test Item Value Reference Range Interpretation Comments POCT GLU (test code = 9193020985) 80 mg/dL 70-110 Lab Interpretation (test code = Normal 40107-6) [facility] GLUCOSE (AUTOMATED)2022-07-17 05:27:10 Test Item Value Reference Range Interpretation Comments POCT GLU (test code = 4836567301) 84 mg/dL 70-110 Lab Interpretation (test code = Normal 78105-6) [facility] GLUCOSE (AUTOMATED)2022-07-17 01:14:31 Test Item Value Reference Range Interpretation Comments POCT GLU (test code = 5190827199) 69 mg/dL 70-110 L Lab Interpretation (test code = Abnormal 15201-6) [facility] GLUCOSE (AUTOMATED)2022-07-16 21:38:28 Test Item Value Reference Range Interpretation Comments POCT GLU (test code = 8878808638) 74 mg/dL 70-110 Lab Interpretation (test code = Normal 57450-4) [facility] GLUCOSE (AUTOMATED)2022-07-16 16:43:07 Test Item Value Reference Range Interpretation Comments POCT GLU (test code = 9561614972) 86 mg/dL 70-110 Lab Interpretation (test code = Normal 55154-5) [facility] GLUCOSE (AUTOMATED)2022-07-16 09:36:35 Test Item Value Reference Range Interpretation Comments POCT GLU (test code = 2208120932) 81 mg/dL 70-110 Lab Interpretation (test code = Normal 63722-7) [facility] GLUCOSE (AUTOMATED)2022-07-16 05:25:22 Test Item Value Reference Range Interpretation Comments POCT GLU (test code = 3753796621) 90 mg/dL 70-110 Lab Interpretation (test code = Normal 25402-6) [facility] GLUCOSE (AUTOMATED)2022-07-16 01:27:18 Test Item Value Reference Range Interpretation Comments POCT GLU (test code = 6632556784) 90 mg/dL 70-110 Lab Interpretation (test code = Normal 89777-5) [facility] GLUCOSE (AUTOMATED)2022-07-15 22:50:24 Test Item Value Reference Range Interpretation Comments POCT GLU (test code = 4846198474) 86 mg/dL 70-110 Lab Interpretation (test code = Normal 51701-7) [facility] GLUCOSE (AUTOMATED)2022-07-15 21:56:15 Test Item Value Reference Range Interpretation Comments POCT GLU (test code = 2663757650) 83 mg/dL 70-110 Lab Interpretation (test code = Normal 53680-9) [facility] GLUCOSE (AUTOMATED)2022-07-15 17:34:16 Test Item Value Reference Range Interpretation Comments POCT GLU (test code = 1606224570) 83 mg/dL 70-110 Lab Interpretation (test code = Normal 55470-4) [facility] GLUCOSE (AUTOMATED)2022-07-15 13:47:19 Test Item Value Reference Range Interpretation Comments POCT GLU (test code = 4395135861) 78 mg/dL 70-110 Lab Interpretation (test code = Normal 83106-8) [facility] GLUCOSE (AUTOMATED)2022-07-15 05:06:41 Test Item Value Reference Range Interpretation Comments POCT GLU (test code = 8208317403) 78 mg/dL 70-110 Lab Interpretation (test code = Normal 92025-8) [facility] GLUCOSE (AUTOMATED)2022-07-15 01:20:38 Test Item Value Reference Range Interpretation Comments POCT GLU (test code = 4882944679) 89 mg/dL 70-110 Lab Interpretation (test code = Normal 95171-3) [facility] GLUCOSE (AUTOMATED)2022-07-14 21:10:53 Test Item Value Reference Range Interpretation Comments POCT GLU (test code = 3676573058) 88 mg/dL 70-110 Lab Interpretation (test code = Normal 32346-4) [facility] IRON BINDING [id number] 20:58:10 Test Item Value Reference Range Interpretation Comments TIBC (test code = 7968312745) 91 ug/dL 250-410 L Lab Interpretation (test code = Abnormal 38490-0) [facility] GLUCOSE (AUTOMATED)2022-07-14 16:20:20 Test Item Value Reference Range Interpretation Comments POCT GLU (test code = 1425596112) 79 mg/dL 70-110 Lab Interpretation (test code = Normal 03574-7) [facility] GLUCOSE (AUTOMATED)2022-07-14 12:47:35 Test Item Value Reference Range Interpretation Comments POCT GLU (test code = 1555397677) 70 mg/dL 70-110 Lab Interpretation (test code = Normal 72653-4) [facility] GLUCOSE (AUTOMATED)2022-07-14 09:08:20 Test Item Value Reference Range Interpretation Comments POCT GLU (test code = 2152664329) 100 mg/dL 70-110 Lab Interpretation (test code = Normal 19020-9) [facility] GLUCOSE (AUTOMATED)2022-07-13 22:29:45 Test Item Value Reference Range Interpretation Comments POCT GLU (test code = 6243727221) 90 mg/dL 70-110 Lab Interpretation (test code = Normal 48854-9) [facility] [id number] 21:45:17 Test Item Value Reference Range Interpretation Comments Case Report (test code Surgical Pathology ? ? = [id number]) ?Case: [id number] ? Authorizing Provider: ?German Bowling MD ? Collected: ? 07/11/2022 1528 ?Ordering Location: ? ? [facility] ? ? ?Received: ?07/11/2022 1829 ? [facility] ?Pathologist: ? Laila Ybarra MD PhD ?Specimen: ? ?SMALL INTESTINE, stitch distal ? Final Diagnosis (test b2trtWMqXITgl2bbIQOfyC code = 8028363255) FuZzEwMzNcZnRuYmpcdWMx IHtccnRmMVxlcGljMTAxMD HzQC6yzJjauLe8aKdsVNEo mrY1yWJhKCpxx9jtWXX5q0 yjnelsMLAiLDbjLx6gnAAj eYcoMeCsMZLfAKq8kJ50QO QufB4wtEEsETs2ADMclUVb ubVfScOhGHDafXChlCJ1XC VqLS2rwsnyBMuiPGjmLBTc jrQ5HNBmaQWbC5SuSLWaCQ 1ivqopQVK1NIsdMYQnKIZ6 WrTfSPVwj9Kaaxl6ZwKgrN FyZFxwbGFpblxmczIwXHBh ciBBLiBTTUFMTCBJTlRFU1 VMWmRpQGUWZ6TGETsZFilq wZQkMZMuDDPrTJZRK10CWi WGZWJHR7IDTO1XHuFKLsCD JvsCLWBiO4rDLUMEIdDRP8 3MIvTKLEoRBv1ORzFDGZ9O KPASFWSVEBAJY3rUXOGfZQ BhciAgICAgICBTRUNPTkRB JhbkBB0nUG5HECAYFKMFLS NRJI7KDODfssTsSGWwSBQK YPJHACLhPPNXF1tZJoOWBw UFWRNIL9IGW36ogJGeICKy ONQxJA6KRUSXH2PNCWRVIB EBYoQUDIwUJ76HAkVFPRdL XNlTXX2HXVHXVQHzhHMkBM PhVEByFQJCBqSOZW5PE44j IEmKPBieNa0PIFOrCU6PR8 JDKFVDKPKRWdBXZXwYZ34J TkNZXHBhclxwYXJcZnMyMi BKdWFuIENhcmxvcyBBbHZh cxX6JC0uktQfsjsoVGCuGZ pvSbBjJzMsOnGoAsm4YmTT EZywDSCyCuYiNUrhAFV4z2 xydGYxXHNzdGVjZjIyMDAw AZGwx8mnXBYyrEHnFuTjFe NcZnRuYmpcdWMxXGRlZmYw b1wdz478gQZyu2vkQEKsMm P1bTByEIPxnYjrgiz2jQdj NcAjIMIsv9sffhTmWmVcOY BvAWUjYCAkcIRxA481NAKn JEvbl8pze8JqIVIfhZJzr7 D2RVTMITbvAkJhG412m4bn g2esqqMquCO3PHAdDIH3GY sanlEugiW9CDuqnAFpTkT9 IDtccmVkMFxncmVlbjBcYm i8TAEiT319WUB7aBbxg2wv IIZ5SXBaFTStIzwqYt0hoC PkP421PTOwMNCLDIDjwIr4 IIKflqCtzgQvmANXt410U9 60f2hfATXrocQcpSjPvptg d6agU818BUYlvWSefoWnPt AtWQXzuLZmeDQ0BJYcPO3l uhmmQAavEVqlYXLlauZ8OJ HthOPpS2IrFVLaNT9dkywu VVM8HXioOCHzCRU6JlJzJA Ivh8Kcctd9NfMugh7zzf07 ZTI9c0RegQnhKLB3ZSN8Uz OzAa1wmYMkPBZiPK1xCwAm lOCcFTKprs80pKvqVMsswb AvjI7tCpHgLZRdjHJjMTVb ZE4eqHSvBNAedM1mbydmFD BnYnJkcmhlYWRccGdicmRy Ab6qbNptRNK6ZCbkV1xkoR 9cRrG7LItyH4ghsQ8vYPr4 AWkgwCZ0FGYioV6eOZ7wde vic5dbJTkqAQiqNHDaooD6 afI1FTHdaGMyE4BxcP5iNK VtDO7mblfno3bjTWB0KQei OEFnRIR7UuUaDUKyc9Xeru g6ThNsc9WajEYtJVylZ24o d615MFCgpcZsX4kdgLTsuo clfGCmoqfdEApbpiB6SJEk XHBsYWluXGYxXGZzMjBcbG FuZzEwMzNcaGljaFxmMVxk JpBoRXXmYYhlK6pnKsMoZ7 YyXGZzMjBccGFyIEkgaGF2 BXJnANYti32lqGs7NFLnlo fzl6LwVOSsbHVelEIxoW3x fmZal5xnTHJcOCRpBDRlF8 PkTPR7pAIgZJEzmQDvkQY3 SH8fzyLzPA6zZUWgBwcjqg AwhAKwhxMnLHJkEOjxa0so NL9aNTTtgTptqV4juKE1LO Sxm5dnrZSfdEHhd7tpc6Te bmFtZShzKSBtYXkgYXBwZW HlXC8iMRXypBOdoeLal4K0 SfcwyZVwgqttMfrzfuG7PY cxykcoEGZaZEvqN0ulAkXi HPTxmNawBugxe3IvVGVxGP ZzMjhccGFyfX0= Clinical Information Small bowel (test code = obstruction 5772058389) Gross Description (test d0uvnGDwPBTxlZKMZDZhIK code = 4527464030) MlWW9pkQjoqBe2bBanMGSg zpK1wDDgEYbov5hcXBA1m9 llbiANClxkZWZmMVxwYXBl sfqbEwV7BPeeXYYvjadoLP y5WBinZDAaaAK0TZHgoDYb A3VlUDIrBU0bsyk7TNJ6XJ ppJUIjYkW6GCGcBuIkQzhv RTo1UPPzjuU0Pym6MBYuVO KlwTJsg3L5PMotziqdSMPv aHQpR761IQa8WVImlQ1ugT DkX4rmPQYwFFbqTOHwQPpw qWXmDYk6CWfug4FxvKZxCW pccGFyZCANCntcKlxlcGlj o9JuyKKwRUmiLHLdDEXdFL oderirIKe8XPJwVGnepOSj YE0nrIijRtqlnAzuu0JvpO BcXGlkIDUxMDAyIFxcZGIg ZB4DQbObNGG1ODD1JgFhFT e1IRu4TG8UHrMmPEYqIWZx EbO5MMUtGBc7UYwyKC3OBS I4Chv5NQL2XOBsVWRvIwIu TUm5PCRnMUdwDDNfbPRwQN xeWeZuGWVcVVtvxSPwYZ3t fVxwbGFpblxmczIwIFNQRU OXAANYSAMprKTsZP9FTWZl EOmlZLOpfQVSOLG1GP0aSH ANClxsdHJwYXJcbGluMFxy iA4rEV6QXDk6ulXmIEXrAm BrG0WpM6bjRD3gZNCypaRf YYIseFCkLRPobnQpj7EcQD wlprkjySVdEWhuFBP1sRSm BTAjMHXiSBPrLN88K3Rgnz FtZSwgVUggbnVtYmVyLCBh bmQgZGVzaWduYXRlZFxjZj ScYOl7RTQdJCVuMdcbd5Ea wOWyEMBqm8UvdIu0BXPzNK HfIzy3XAlwNTQiGJTtK48d olVzv6Evp03mbSuolR73RD N0aS2yBZerKO94UAHyYNrw TVzgaso5iPG1LHXmEECevR VajoHbkGWbwY6pFRZuedKv RZGsjQLgdCLgSGJ2QQOpI7 tsXU0oQMJaBZEzyxhcoyIs FAJ7jNDlBGVox7Z6wSTcLW S1VKVnDXNlvAC5NKxzPB9b TiQYvOGyTSEccgYtSHW6cJ KkHTYiafNaCK92ZF8uKNZt OIKbd7jxnIF8KXfxFNEgSP RsgUObjm3lIMVkKZUhoDI0 ZLyfjPMfA5tkKGNbMYK8kG TwMIAzeeIrQSSurF7sYLKt YU9kSBMbbz68bVv1FYFelw RlIY7pDNYpw6BiGYiiyPft eZRps4ZrsZDjZpQhFF9aYX NtFCVof82mbLxiDTFfs1tv lAWnATAgOP1qRYzhOEGlBU UaqFFdROxnAT4sEY2qFDW1 irMfSDRcNYiceT2zbyAgKd ItgDIuk5XzRV8eVJehsT9w kprcH1JaZ94habNssF4pGA vtLbV3ciMdRDArKM4bZWZx TCJoVDH3fMVxtaRqYOdbrn WfBBQnwg3jJTwuOI6mc4Cz dGVyeSBpcyBwYWxwYXRlZC Wvp2VisWdiFLVji4MmXydg KLc6lTPxZY5oBPVdZ4TvIM mmTODufw5pH3CvQIBxuNFm dE9bdIusYEAgzhVwyF6kgt LpvyCoCRIlEKscNB98JC3m ECRxq6LmFUqgJdYmT75mjP 6ntNJwM7HxRUebBy0qTPHc IGMtCA0zrMUkFTUsjKMcjN WaBJQ2BQ5eULByxsCzAO5r HI8nWM5tOOHbhYvbHG65tV ZvKOXqEP0zLxBfzwCzNH01 HTImxyPlx8YgdBygxmLwAW EiNPL9Dj0cnIUlJYKmwqAV UA7EJw4frWMrYR3XTEQqnf UQEkCuTkJEWBVkO9ewSFUs bWFsbCBmcmFnbWVudCBvZi Csz7pcsKnvg5KgaKagASCw BYZwxQ7aJEYcgFenCOh6BL BhciANCkEyLUEzOiBMYXJn UTChFKokZF12EZ8eNTLkh4 XcFMButt77bE0ngQSqFFRs jU5pYWYjfCdlNAi3WMOxjr NRXvT8YhQHYITaNTMuBYay FL86HZ4bBTDzp5JfWQBvnL A2UXgotHCjF7lkYEVkeaAq cmVseVxwYXIgDQpBNTogU2 QwqQbgagLtjPZ4jBWgj6E5 dXJlZCBhcmVhIDQuMCBjbS Rwca2eZGHjh1KchEHnNPPu pR9uuQBeDV8VTTU2OHDbX4 Tyl37jo1KfqXDfBZplcXTq FWWsTVRxw4IePx64IBkll5 RhjUFjZwHxOG8qSAHgHUCh m36idPwnTHAco5sevUPtGL VlEBgaQNVcPCgFZfvrJZ2h ycLwyWUpIQTxo3xejKW4ZL reGPGqnhYSTgS0WuQNg23c tXpfeOltjv6gDGWkKD0vkE TyeWMbSTU6lJ5iKStwNBPc PPppePVbDS4FHRViYKGXoM llZXNoYSBXaWxoZWxtLCBN RCANClxlcGljTmVzdERvYz JryeP6PLIxgDRqNBH7LN0t LOXxyxkhUGEtXIAbUPV1SO qwqZ22xLReWVDgJLMekURm eXtudJVxinHOWmvpkF1mZl Kmd1nbiKy6JKLSMpcuiWTe wqkeurB1GATmd4zwqYagt3 JdsZXpQH4quSmziL1eQtBh NiANCn0= Disclaimer (test code = y3lhaMHwDZBgi6xcANTbpN 4391876794) FuZzEwMzNcZnRuYmpcdWMx DTcvjnVrHEwlc8XpH0OrNq AwMFxhbnNpXGRlZmxhbmcx PVRaDJS0gmMhKBJaOZwbDL RvMPcnNs8qhQMwxEzeAgIt HBGgt2jmpfWIXKwfXnNuH2 08MASwROkjt2ocp0CcXLSp aWHyc1Z9SQLAwoptxWn9fE rsG78hw2W2QhlvI5xjLOFa SEOeR7UgXW0kMUYaPig4UF Y7HWC8LMNkGPLgQ5MbXM1a GIBvcSLvXGr7c6cafPosNY OzVKY0t1jlCJioxkTdKZ7v so8raNi0g8pedrCrXJYjAU GtkQCFVKZcO2JnzRqgBo1n kSe2uGgvEaqiXVR2Odo9MQ 4sab66mne6mBibWKSypmkf XpX5FGytKBPzdxkqIOj2FQ fwMEIvsOO1IDEacOQgG3Qa QBCkJL7hcnp4VLS0RHgmTH RvEpI4LQZceUXlCHIhwLyz JQvmf274OMB1ZkWyWG3fX4 Aba6I4oI8qpHAaCFAahOOi TkWySSCqwt8nsMTfXInpg5 GcBEC1caO8nDCpwHXwSVXq TZ08Ewrmi8XwKuafg1CtM3 8hbQJ4QWmcf4cpSD7iLyF0 akXaLSkmc3axhF8bKeE8PV jnTP7lPM3aJSDuvG6bvddn XHBnYnJkcmhlYWRccGdicm AlQz4wkYfuAEO7PPmrS8gd kO6bKoY5KUjcR2rsdQ5tFF w1WKmskOU5PSXmwC1yXV9e osqft0bsAPaiJHzbCZPwtd L1ujE5CFUepSOhJ5VexZ3p AFLfJM5ambjvf4tuRFV9ND iyDDFnHAY8XeMnMSQlr2Vo ogq7RnSdk1YcqIBkOYxyG1 6ys305FOCcrtMwI2cgxOOt sfyuiQEcqpxsBZpdcaB1DJ XnjwFhy2CkSHBiZXH9ZUkl HMgzbAHzSSBklWeyc1azT4 RscGFyXHBsYWluXGYxXGZz MjBcbGFuZzEwMzNcaGljaF tmQTqgOyYdQCGaJQkcR6te SiSoJ1UyUJZiZwRwsKGbK4 ggVGhpcyByZXBvcnQgbWF5 KRpyB0c1XHMubiGdtLn1qr CpIbZnKVSzLIB4VHwfcSOx WMIyt7LnvierfHZdAc5vwH HmAJEvuI5wYMQwJHTmDPit PB3juCa2CPXMcYIgsFNfCn MYNFHbQZ32tmNaOIIKgnfl n9X7EDlxBTKvu8KkgQBtU7 kmw7UgGQQrs26gJX8rn7X3 i1pvFSV8VA0jb1SpVQYbmO HdaDRlFQAlq1Dgtfuqi8Ri RXGdomBdx9FzXMYpouEtwV BbSRXwldMqch6bxaIaJRFl CBHmR4BwrwoexJpfqxGjAZ Thiy9kvhKiBWP6MHJEGQCk KMYrj5SshW4dmTQRFMK4sR Aqex7lloLJcBSgMZIuhn50 LHShAD6fN6rdYXGjAERnik KaoDIms9EmNQUmjJY8cHLy VH8ILrORw75aVZBdNACMof TpNLImyXjygGM2oqU0wV9d IChGREEpLlx+IFRoZSBGRE NvFP2sijXeg3ZfkcPmnNor JBRudMOrt8FolXAtl1SvcO ksh6XtzHWciDLdUI1wSPQv clxwYXIgVVRNQiBMYWJvcm F6b5CcDRMpJIOpSMP8aSrh skg2WHDsmZ8vNQYhO3ycfm khSEddNZEdf8FaqQ5prIUJ sDQbe4DneHMraYEMfMOeUM 8sysCfQAzPLXdOVFG0rfFf FFFoa0UcLVgjN1qeD52zeN ngaHr1gTM7UUH9cF1hMte+ IFxwYXJccGFyIEFwcHJvcH ZoKFKjuPfiwjSjE8CakfHr jZ6goYZmupZwDQ3uNL5bU0 R7fJDtXIXwmkFco1wxNZqr dmUgYmVlbiByZXZpZXdlZC Pft3EpHBrdNMZ3XAjstuQl bmNsdWRpbmcgSCZFLCBTcG HzaCXrEPW7XVimjyKokcDw GO0rzS4plKkqrD0akADdnL Z6caigTCVvEKPgbDbsBLLs XT3yoRMpVFVxnxERyUtwzE MwvD1wJ5XmGNAsSYBgbd0g IDRylZ1nKRkxv6TfmfyrEZ MwQIJwAUMddaKczn1zTKUu jGBZCG5HLBtyjQGap9Cgtr MlN3sLJNR6ALZrMzUaEjcm TEFckSEskEUrFYAnrt11KQ EdsF4qbLfaPHMjvD2vjR9v zSxqaC4oGpPwQzKbVIrrMS 5gIEVqD6rekSLiABEkFBEn M2rfGkIosO2baNjxHDpnJh KlOuLcFZqcINZ5nY== Embedded Images (test code = 9074811911) [facility] GLUCOSE (AUTOMATED)2022-07-13 21:03:47 Test Item Value Reference Range Interpretation Comments POCT GLU (test code = 8127941489) 57 mg/dL 70-110 L Lab Interpretation (test code = Abnormal 59633-4) [facility]:36 Test Item Value Reference Range Interpretation Comments PALB (test code = 72511-9) 4.1 mg/dL 18-45 L Lab Interpretation (test code = Abnormal 48301-4) [facility] GLUCOSE (AUTOMATED)2022-07-13 15:52:08 Test Item Value Reference Range Interpretation Comments POCT GLU (test code = 6821896942) 167 mg/dL 70-110 H Lab Interpretation (test code = Abnormal 51920-7) [facility] GLUCOSE (AUTOMATED)2022-07-13 15:18:37 Test Item Value Reference Range Interpretation Comments POCT GLU (test code = 9224822917) 160 mg/dL 70-110 H Lab Interpretation (test code = Abnormal 43458-1) [facility] WITH [id number] 15:11:15 Test Item Value Reference Range Interpretation Comments WBC (test code = See_Comment [Automated message] 6690-2) The system [employer] generated this result transmitted ref erence range: 4.20 - 1 0.70 10*3/?L. The reference range was not used to int erpret this result as normal/abnormal . RBC (test code = See_Comment L [Automated message] 789-8) The system [employer] generated this result transmitted ref erence range: [...] (test code = 56.9 fL 38.5-51.6 H 72915-3) RDW-CV (test code = 17.2 % 12.1-15.4 H 788-0) PLT (test code = See_Comment [Automated message] 777-3) The system [employer] generated this result transmitted ref erence range: 150 - 32 8 10*3/?L. The reference range was not used to int erpret this result as normal/abnormal . MPV (test code = 11.3 fL 9.8-13 87531-0) NRBC/100 WBC (test See_Comment [Automat ed message] code = 8507827385) The [employer] which generated this result transmitted ref erence range: 0.0 - 10 .0 /100 WBCs. The reference range was not used to int erpret this result as normal/abnormal . NRBC x10^3 (test See_Comment [Automated message] code = 6906776997) The [employer] which generated this result transmitted ref erence range: 10*3/?L. The reference range was not used to int erpret this result as normal/abnormal . GRAN MAT (NEUT) % 75.1 % (test code = 770-8) IMM GRAN % (test 0.40 % code = 7605402119) LYMPH % (test code = 18.0 % 736-9) MONO % (test code = 5.1 % 5905-5) EOS % (test code = 1.3 % 713-8) BASO % (test code = 0.1 % 706-2) GRAN MAT x10^3(ANC) 5.26 10*3/uL 1.99-6.95 (test code = 1091982399) IMM GRAN x10^3 (test 0.03 10*3/uL 0-0.06 code = 1315661961) LYMPH x10^3 (test 1.26 10*3/uL 1.09-3.23 code = 731-0) MONO x10^3 (test 0.36 10*3/uL 0.36-1.02 code = 742-7) EOS x10^3 (test code 0.09 10*3/uL 0.06-0.53 = 711-2) BASO x10^3 (test 0.01-0.09 code = 704-7) ELLIPTO/OVAL (test 2+ See_Comment A [Automat ed message] code = 59028-8) The system [employer] generated this result transmitted ref erence range: (none). The reference range was not used to int erpret this result as normal/abnormal . 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 Hemog lobin electrophoresis recommended for confirmation. SCHISTOCYTES (test 1+ A code = 800-3) TARGET CELLS (test 2+ See_Comment A [Automat ed message] code = 67110-6) The system [employer] generated this result transmitted ref erence range: (none). The reference range was not used to int erpret this result as normal/abnormal . BANDS (test code = Increased A 1316171569) DOHLE BODIES (test Present A code = 7792-5) Lab Interpretation Abnormal (test code = 00734-6) [facility] 15:03:40 Test Item Value Reference Range Interpretation Comments POCT GLU (test code = 4507791246) 34 mg/dL 70-110 LL Lab Interpretation (test code = Abnormal 88274-0) [facility] (NA, K, CL, CO2, GLUCOSE, BUN, CREATININE, CA)2022-07-13 14:55:02 Test Item Value Reference Range Interpretation Comments NA (test code = 151 mmol/L 135-145 H 8629844252) K (test code = 3.0 mmol/L 3.5-5 L 3657004193) CL (test code = 120 mmol/L 98-108 H 8219783274) CO2 TOTAL (test code = 26 mmol/L 23-31 2807919064) AGAP (test code = 2-16 7202012269) BUN (test code = 17 mg/dL 7-23 3669040017) GLUCOSE (test code = 34 mg/dL 70-110 LL 9574675496) CREATININE (test code = 0.76 mg/dL 0.6-1.25 7001910408) CALCIUM (test code = 7.8 mg/dL 8.6-10.6 L 2104860645) eGFR (test code = mL/min/1.73m2 7998144296) LU (test code = LU) Association of [...] tests). Lab Interpretation Abnormal (test code = 00747-9) [facility] 14:49:59 Test Item Value Reference Range Interpretation Comments MAGNESIUM (test code = 1874991775) 2.1 mg/dL 1.7-2.4 Lab Interpretation (test code = Normal 64783-7) [facility]22[facility]20 14:49:59 Test Item Value Reference Range Interpretation Comments PHOSPHORUS (test code = 3915466324) 2.7 mg/dL 2.5-5 Lab Interpretation (test code = Normal 47705-2) [facility]22-[facility]-19 22:45:16 Test Item Value Reference Range Interpretation Comments PALB (test code = 71273-9) 5.1 mg/dL 18-45 L Lab Interpretation (test code = Abnormal 48060-0) [facility] + Lactic [id number] 20:56:10 Test Item Value Reference Range Interpretation Comments PH (test code = 2) 7.35-7.45 L PCO2 (test code = See_Comment H [Automate d 5932750684) message] The [employer] which generated this result transmitted reference range : 35 - 45 mmHg. The reference range was not used to interpret this result as normal/abnormal . PO2 (test code = See_Comment H [Automated 4803923913) message] The sy [employer] which generated this result transmitted reference range : 80 - 100 mmHg. The reference range was not used to interpret this result as normal/abnormal . HCO3 (test code = See_Comment [Automate d 5678000646) message] The sy [employer] which generated this result transmitted reference range : 22 - 26 mEq/L. The reference range was not used to interpret this result as normal/abnormal . BE (test code = See_Comment L [Automated 1195667517) message] The sy stem which generated this result transmitted reference range : -3.0 - 3.0 mEq/ L. The reference r alisson was not used to interpret this result as normal/abnormal . THB (test code = 8.0 g/dL 13.5-18 LL 0409832111) %O2HB (test code = 96.3 % 94-99 1358732700) %COHB ART (test code = 0.5 % 0-1.5 4746070333) %METHB ART (test code = 0.3 % 0.4-1.5 L 5605493725) VOL%O2 ART (test code = 11.1 % 15-23 L 1609833345) NA (test code = 145 mmol/L 135-145 7233787556) K+ (test code = 3.6 mmol/L 3.5-5 4449254661) AC CA IONZ (test code = 5.30 mg/dL 4.5-5.3 6647210617) GLUCOSE (test code = 163 mg/dL 70-110 H 9775714353) LACTIC ACID (test code 0.49 mmol/L 0.5-2.2 L = 6249577702) Lab Interpretation Abnormal (test code = 04978-9) [facility] + Lactic [id number] 20:56:10 Test Item Value Reference Range Interpretation Comments PH (test code = 2) 7.35-7.45 L PCO2 (test code = See_Comment H [Automate d 2746804791) message] The sy stem which generated this result transmitted reference range : 35 - 45 mmHg. The reference range was not used to interpret this result as normal/abnormal . PO2 (test code = See_Comment H [Automated 5845293540) message] The sy stem which generated this result transmitted reference range : 80 - 100 mmHg. The reference range was not used to interpret this result as normal/abnormal . HCO3 (test code = See_Comment [Automate d 6723962134) message] The sy stem which generated this result transmitted reference range : 22 - 26 mEq/L. The reference range was not used to interpret this result as normal/abnormal . BE (test code = See_Comment L [Automated 7713492806) message] The sy stem which generated this result transmitted reference range : -3.0 - 3.0 mEq/ L. The reference r alisson was not used to interpret this result as normal/abnormal . THB (test code = 8.0 g/dL 13.5-18 LL 9153883475) %O2HB (test code = 96.3 % 94-99 7616076936) %COHB ART (test code = 0.5 % 0-1.5 0192442946) %METHB ART (test code = 0.3 % 0.4-1.5 L 2951060122) VOL%O2 ART (test code = 11.1 % 15-23 L 5402406180) NA (test code = 145 mmol/L 135-145 8438654778) K+ (test code = 3.6 mmol/L 3.5-5 0099308639) AC CA IONZ (test code = 5.30 mg/dL 4.5-5.3 9723538155) GLUCOSE (test code = 163 mg/dL 70-110 H 2292388068) LACTIC ACID (test code 0.49 mmol/L 0.5-2.2 L = 2313898945) Lab Interpretation Abnormal (test code = 70901-0) [facility] [id number] 16:12:23 Test Item Value Reference Range Interpretation Comments LACTIC ACID (test code = 1.23 mmol/L 0.5-2.2 8260688226) Lab Interpretation (test code = Normal 50970-5) [facility] Yeyce0270-77-51 16:12:23 Test Item Value Reference Range Interpretation Comments LACTIC ACID (test code = 1.23 mmol/L 0.5-2.2 7471829108) Lab Interpretation (test code = Normal 76533-6) [facility]. METABOLIC PANEL ([id number])2022-07-10 00:41:51 Test Item Value Reference Range Interpretation Comments NA (test code = 137 mmol/L 135-145 3418941196) K (test code = 2.6 mmol/L 3.5-5 LL 6102402844) CL (test code = 93 mmol/L 98-108 L 0388405322) CO2 TOTAL (test code = 31 mmol/L 23-31 9850848717) AGAP (test code = 2-16 2862082654) BUN (test code = 28 mg/dL 7-23 H 7099572668) GLUCOSE (test code = 140 mg/dL 70-110 H 4287268522) CREATININE (test code = 2.04 mg/dL 0.6-1.25 H 4491287648) TOTAL BILI (test code = 0.6 mg/dL 0.1-1.4 6385003302) CALCIUM (test code = 7.6 mg/dL 8.6-10.6 L 2418076315) T PROTEIN (test code = 7.3 g/dL 6.3-8.2 6971757394) ALBUMIN (test code = 3.2 g/dL 3.5-5 L 9646826488) ALK PHOS (test code = 146 U/L 34-122 H 5282601493) ALTv (test code = 13 U/L 5-50 1742-6) AST(SGOT) (test code = 17 U/L 13-40 7783948818) eGFR (test code = mL/min/1.73m2 7874810909) LU (test code = LU) Association of [...] tests). Lab Interpretation Abnormal (test code = 77131-1) [facility]. METABOLIC PANEL (46719)2022-07-10 00:41:51 Test Item Value Reference Range Interpretation Comments NA (test code = 137 mmol/L 135-145 4385218414) K (test code = 2.6 mmol/L 3.5-5 LL 5487727291) CL (test code = 93 mmol/L 98-108 L 3229648205) CO2 TOTAL (test code = 31 mmol/L 23-31 3826052065) AGAP (test code = 2-16 8235187499) BUN (test code = 28 mg/dL 7-23 H 8134476820) GLUCOSE (test code = 140 mg/dL 70-110 H 9448287277) CREATININE (test code = 2.04 mg/dL 0.6-1.25 H 7326250674) TOTAL BILI (test code = 0.6 mg/dL 0.1-1.2 7872829341) CALCIUM (test code = 7.6 mg/dL 8.6-10.6 L 8008107260) T PROTEIN (test code = 7.3 g/dL 6.3-8.2 1244143643) ALBUMIN (test code = 3.2 g/dL 3.5-5 L 8476550092) ALK PHOS (test code = 146 U/L 34-122 H 7629809906) ALTv (test code = 13 U/L 5-50 1742-6) AST(SGOT) (test code = 17 U/L 13-40 2602654420) eGFR (test code = mL/min/1.73m2 0209358695) LU (test code = LU) Association of [...] tests). Lab Interpretation Abnormal (test code = 37452-1) [facility] Test Item Value Reference Range Interpretation Comments MAGNESIUM (test code = 3112150863) 2.3 mg/dL 1.7-2.4 Lab Interpretation (test code = Normal 38649-2) [facility] Test Item Value Reference Range Interpretation Comments MAGNESIUM (test code = 3022013557) 2.3 mg/dL 1.7-2.4 Lab Interpretation (test code = Normal 31565-6) [facility] 00:32:22 Test Item Value Reference Range Interpretation Comments LIPASE (test code = 1517287085) 18 U/L 0-220 Lab Interpretation (test code = Normal 88749-0) [facility] 00:32:22 Test Item Value Reference Range Interpretation Comments LIPASE (test code = 1118298865) 18 U/L 0-220 Lab Interpretation (test code = Normal 65427-6) [facility] WITH [id number] 00:18:00 Test Item Value Reference Range Interpretation [...] RDW-SD (test code = 47.0 fL 38.5-51.6 01916-8) RDW-CV (test code = 15.4 % 12.1-15.4 788-0) PLT (test code = See_Comment H [Automated 777-3) message] The system which generated this result transmit annette reference range : 150 - 328 10*3/ ?L. The reference range was not u sed to interpret th is result as normal/abnormal . MPV (test code = 10.7 fL 9.8-13 54791-6) NRBC/100 WBC (test See_Comment [Automat ed code = 6301197005) message] The system which generated this result transmit annette reference range : 0.0 - 10.0 /100 WBCs. The reference range was not used to interpret this result as normal/abnormal . NRBC x10^3 (test code See_Comment [Auto mated = 9115339819) message] The system which generated this result transmit annette reference range : 10*3/?L. The reference range was not used to interpret this result as normal/abnormal . GRAN MAT (NEUT) % 83.3 % (test code = 770-8) IMM GRAN % (test code 0.50 % = 7902144250) LYMPH % (test code = 10.1 % 736-9) MONO % (test code = 5.9 % 5905-5) EOS % (test code = 0.0 % 713-8) BASO % (test code = 0.2 % 706-2) GRAN MAT x10^3(ANC) 10.78 10*3/uL 1.99-6.95 H (test code = 0084828543) IMM GRAN x10^3 (test 0.06 10*3/uL 0-0.06 code = 8782663602) LYMPH x10^3 (test code 1.31 10*3/uL 1.09-3.23 = 731-0) MONO x10^3 (test code 0.76 10*3/uL 0.36-1.02 = 742-7) EOS x10^3 (test code = 0.06-0.53 L 711-2) BASO x10^3 (test code 0.01-0.09 = 704-7) Lab Interpretation Abnormal (test code = 36361-4) [facility] WITH [id number] 00:18:00 Test Item Value Reference Range Interpretation Comments WBC (test code = See_Comment H [Automated 5890-2) message] The system which generated this result transmit annette reference range : 4.20 - 10.70 10*3/?L. The reference range was not used to interpret this result as normal/abnormal . RBC (test code = See_Comment [Automated 079-8) message] The system which generated this result [...] RDW-SD (test code = 47.0 fL 38.5-51.6 07831-2) RDW-CV (test code = 15.4 % 12.1-15.4 788-0) PLT (test code = See_Comment H [Automated 777-3) message] The system which generated this result transmit annette reference range : 150 - 328 10*3/ ?L. The reference range was not u sed to interpret th is result as normal/abnormal . MPV (test code = 10.7 fL 9.8-13 47256-5) NRBC/100 WBC (test See_Comment [Automat ed code = 2857561037) message] The system which generated this result transmit annette reference range : 0.0 - 10.0 /100 WBCs. The reference range was not used to interpret this result as normal/abnormal . NRBC x10^3 (test code See_Comment [Auto mated = 9794625226) message] The system which generated this result transmit annette reference range : 10*3/?L. The reference range was not used to interpret this result as normal/abnormal . GRAN MAT (NEUT) % 83.3 % (test code = 770-8) IMM GRAN % (test code 0.50 % = 8265436514) LYMPH % (test code = 10.1 % 736-9) MONO % (test code = 5.9 % 5905-5) EOS % (test code = 0.0 % 713-8) BASO % (test code = 0.2 % 706-2) GRAN MAT x10^3(ANC) 10.78 10*3/uL 1.99-6.95 H (test code = 1618211484) IMM GRAN x10^3 (test 0.06 10*3/uL 0-0.06 code = 1572275089) LYMPH x10^3 (test code 1.31 10*3/uL 1.09-3.23 = 731-0) MONO x10^3 (test code 0.76 10*3/uL 0.36-1.02 = 742-7) EOS x10^3 (test code = 0.06-0.53 L 711-2) BASO x10^3 (test code 0.01-0.09 = 704-7) Lab Interpretation Abnormal (test code = 13475-5) [facility]. METABOLIC PANEL ([id number])2022-05-27 01:04:32 Test Item Value Reference Range Interpretation Comments NA (test code = 135 mmol/L 135-145 2229045847) K (test code = 2.3 mmol/L 3.5-5 LL 0782185210) CL (test code = 102 mmol/L 98-108 2059736268) CO2 TOTAL (test code = 21 mmol/L 23-31 L 2766043264) AGAP (test code = 2-16 3966528520) BUN (test code = 5 mg/dL 7-23 L 3375693447) GLUCOSE (test code = 142 mg/dL 70-110 H 5728597686) CREATININE (test code = 0.68 mg/dL 0.6-1.25 8653728978) TOTAL BILI (test code = 0.6 mg/dL 0.1-1.6 3921329405) CALCIUM (test code = 7.9 mg/dL 8.6-10.6 L 5527108756) T PROTEIN (test code = 7.3 g/dL 6.3-8.2 4367088474) ALBUMIN (test code = 3.2 g/dL 3.5-5 L 2393672973) ALK PHOS (test code = 100 U/L 34-122 7533701842) ALTv (test code = 13 U/L 5-50 1742-6) AST(SGOT) (test code = 17 U/L 13-40 1156849024) eGFR (test code = mL/min/1.73m2 6668016367) LU (test code = LU) Association of [...] tests). Lab Interpretation Abnormal (test code = 79321-3) [facility] WITH [id number] 00:45:16 Test Item Value Reference Range Interpretation Comments WBC (test code = See_Comment [Automated 4558-2) message] The sy stem which generated this result transmitted reference range : 4.20 - 10.70 10*3/?L. The reference range was not used to interpret this result as normal/abnormal . RBC (test code = See_Comment L [Automated 349-8) message] The sy stem which generated this [...] RDW-SD (test code = 49.6 fL 38.5-51.6 63929-8) RDW-CV (test code = 15.1 % 12.1-15.4 788-0) PLT (test code = See_Comment [Automated 367-3) message] The sy stem which generated this result transmitted reference range : 150 - 328 10*3/ ?L. The reference r alisson was not used to interpret this result as normal/abnormal . MPV (test code = 11.2 fL 9.8-13 69345-4) NRBC/100 WBC (test See_Comment [Automat ed code = 7883021578) message] The system which generated this result transmitted reference range : 0.0 - 10.0 /100 WBCs. The refer ence range was not u sed to interpret th is result as normal/abnormal . NRBC x10^3 (test code See_Comment [Auto mated = 3565857258) message] The s ystem which generated this result transmitted reference range : 10*3/?L. The reference range was not used to interpret this result as normal/abnormal . GRAN MAT (NEUT) % 72.3 % (test code = 770-8) IMM GRAN % (test code 0.20 % = 0353752785) LYMPH % (test code = 19.9 % 736-9) MONO % (test code = 6.3 % 5905-5) EOS % (test code = 1.0 % 713-8) BASO % (test code = 0.3 % 706-2) GRAN MAT x10^3(ANC) 6.43 10*3/uL 1.99-6.95 (test code = 2363529363) IMM GRAN x10^3 (test 0-0.06 code = 9793589817) LYMPH x10^3 (test code 1.77 10*3/uL 1.09-3.23 = 731-0) MONO x10^3 (test code 0.56 10*3/uL 0.36-1.02 = 742-7) EOS x10^3 (test code = 0.09 10*3/uL 0.06-0.53 711-2) BASO x10^3 (test code 0.03 10*3/uL 0.01-0.09 = 704-7) Lab Interpretation Abnormal (test code = 71179-3) [facility] METABOLIC PANEL (NA, K, CL, CO2, GLUCOSE, BUN, CREATININE, CA)2022-04-29 10:41:04 Test Item Value Reference Range Interpretation Comments NA (test code = 141 mmol/L 135-145 7843671755) K (test code = 4.1 mmol/L 3.5-5 8348250927) CL (test code = 113 mmol/L 98-108 H 6644663011) CO2 TOTAL (test code = 26 mmol/L 23-31 2527539512) AGAP (test code = 2-16 3988342552) BUN (test code = 2 mg/dL 7-23 L 6894316101) GLUCOSE (test code = 77 mg/dL 70-110 0977899789) CREATININE (test code = 0.43 mg/dL 0.6-1.25 L 5313801043) CALCIUM (test code = 7.5 mg/dL 8.6-10.6 L 2477226636) eGFR (test code = mL/min/1.73m2 3500496820) LU (test code = LU) Association of [...] tests). Lab Interpretation Abnormal (test code = 40197-6) [facility] (NA, K, CL, CO2, GLUCOSE, BUN, CREATININE, CA)2022-04-29 10:41:04 Test Item Value Reference Range Interpretation Comments NA (test code = 141 mmol/L 135-145 5440837696) K (test code = 4.1 mmol/L 3.5-5.0 0316609490) CL (test code = 113 mmol/L 98-108 H 8686181928) CO2 TOTAL (test code = 26 mmol/L 23-31 9502678411) AGAP (test code = 2-16 7279138967) BUN (test code = 2 mg/dL 7-23 L 6563098048) GLUCOSE (test code = 77 mg/dL 70-110 2672036016) CREATININE (test code = 0.43 mg/dL 0.60-1.25 L 3393646442) CALCIUM (test code = 7.5 mg/dL 8.6-10.6 L 0472961314) eGFR (test code = mL/min/1.73m2 8286847873) LU (test code = LU) Association of [...] tests). Lab Interpretation Abnormal (test code = 63739-5) [facility] Test Item Value Reference Range Interpretation Comments MAGNESIUM (test code = 0431192934) 1.7 mg/dL 1.7-2.4 Lab Interpretation (test code = Normal 96206-7) [facility]:02[facility]20 Test Item Value Reference Range Interpretation Comments MAGNESIUM (test code = 0099618685) 1.7 mg/dL 1.7-2.4 Lab Interpretation (test code = Normal 06515-3) [facility]IC [facility] (NA, K, CL, CO2, GLUCOSE, BUN, CREATININE, CA)2022-04-28 17:52:13 Test Item Value Reference Range Interpretation Comments NA (test code = 142 mmol/L 135-145 4278774362) K (test code = 2.6 mmol/L 3.5-5 LL 1556504445) CL (test code = 109 mmol/L 98-108 H 4872281102) CO2 TOTAL (test code = 26 mmol/L 23-31 7413638067) AGAP (test code = 2-16 7042969114) BUN (test code = 3 mg/dL 7-23 L 4706945013) GLUCOSE (test code = 95 mg/dL 70-110 9276078142) CREATININE (test code = 0.57 mg/dL 0.6-1.25 L 0427457273) CALCIUM (test code = 7.6 mg/dL 8.6-10.6 L 8307643759) eGFR (test code = mL/min/1.73m2 0804429951) LU (test code = LU) Association of [...] tests). Lab Interpretation Abnormal (test code = 96170-6) [facility] METABOLIC PANEL (NA, K, CL, CO2, GLUCOSE, BUN, CREATININE, CA)2022-04-28 17:52:13 Test Item Value Reference Range Interpretation Comments NA (test code = 142 mmol/L 135-145 9532002203) K (test code = 2.6 mmol/L 3.5-5.0 LL 6161295243) CL (test code = 109 mmol/L 98-108 H 0342241813) CO2 TOTAL (test code = 26 mmol/L 23-31 4109057147) AGAP (test code = 2-16 9450600288) BUN (test code = 3 mg/dL 7-23 L 8031200773) GLUCOSE (test code = 95 mg/dL 70-110 4368270693) CREATININE (test code = 0.57 mg/dL 0.60-1.25 L 1054997410) CALCIUM (test code = 7.6 mg/dL 8.6-10.6 L 1292464417) eGFR (test code = mL/min/1.73m2 0121657414) LU (test code = LU) Association of [...] tests). Lab Interpretation Abnormal (test code = 20281-6) [facility]IC [facility] (NA, K, CL, CO2, GLUCOSE, BUN, CREATININE, CA)2022-04-28 17:52:13 Test Item Value Reference Range Interpretation Comments NA (test code = 142 mmol/L 135-145 3777362883) K (test code = 2.6 mmol/L 3.5-5.0 LL 8611680289) CL (test code = 109 mmol/L 98-108 H 6918325609) CO2 TOTAL (test code = 26 mmol/L 23-31 4762406419) AGAP (test code = 2-16 3192602621) BUN (test code = 3 mg/dL 7-23 L 4583068668) GLUCOSE (test code = 95 mg/dL 70-110 0248937739) CREATININE (test code = 0.57 mg/dL 0.60-1.25 L 3141619218) CALCIUM (test code = 7.6 mg/dL 8.6-10.6 L 4035139792) eGFR (test code = mL/min/1.73m2 8874604670) LU (test code = LU) Association of [...] tests). Lab Interpretation Abnormal (test code = 58297-2) [facility] WITHOUT [id number] 17:16:02 Test Item Value Reference Range Interpretation Comments WBC (test code = 6690-2) See_Comment [A utomated message] The system [employer] generated this result transmit annette reference range : 4.20 - 10.70 10*3/?L. The reference range was not used to interpret this result as normal/abnormal . RBC (test code = 789-8) See_Comment L [Au tomated message] The system [employer] generated this result transmit annette reference range [...] 777-3) See_Comment [Au tomated message] The system [employer] generated this result transmit annette reference range : 150 - 328 10*3/?L. The reference range was not used to interpret this result as normal/abnormal . MPV (test code = 10.7 fL 9.8-13 44880-6) RDW-CV (test code = 14.9 % 12.1-15.4 788-0) RDW-SD (test code = 48.9 fL 38.5-51.6 39680-1) NRBC x10^3 (test code = See_Comment [Au tomated message] 5127425943) The system [employer] generated this result transmit annette reference range : 10*3/?L. The reference range was not used to interpret this result as normal/abnormal . NRBC/100 WBC (test code See_Comment [Au tomated message] = 9805505319) The system [facility] generated this result transmit annette reference range : 0.0 - 10.0 /100 WBC s. The reference r alisson was not used to interpret this result as normal/abnormal . IPF % (test code = 6071145545) Lab Interpretation (test Abnormal code = 46381-8) [facility] WITHOUT [id number] 17:16:02 Test Item Value Reference Range Interpretation Comments WBC (test code = 6690-2) See_Comment [A utomated message] The system [employer] generated this result transmit annette reference range : 4.20 - 10.70 10*3/?L. The reference range was not used to interpret this result as normal/abnormal . RBC (test code = 789-8) See_Comment L [Au tomated message] The system [employer] generated this result transmit annette reference range [...] 777-3) See_Comment [Au tomated message] The system [employer] generated this result transmit annette reference range : 150 - 328 10*3/?L. The reference range was not used to interpret this result as normal/abnormal . MPV (test code = 10.7 fL 9.8-13.0 40884-0) RDW-CV (test code = 14.9 % 12.1-15.4 788-0) RDW-SD (test code = 48.9 fL 38.5-51.6 93276-2) NRBC x10^3 (test code = <0.01 See_Comment [Au tomated message] 2295689095) The system [employer] generated this result transmit annette reference range : 10*3/?L. The reference range was not used to interpret this result as normal/abnormal . NRBC/100 WBC (test code See_Comment [Au tomated message] = 9142825306) The system [facility] generated this result transmit annette reference range : 0.0 - 10.0 /100 WBC s. The reference r alisson was not used to interpret this result as normal/abnormal . IPF % (test code = 2957175367) Lab Interpretation (test Abnormal code = 66702-4) [facility] WITHOUT [id number] 17:16:02 Test Item Value Reference Range Interpretation Comments WBC (test code = 6690-2) See_Comment [A utomated message] The system [facility] generated this result transmit annette reference range : 4.20 - 10.70 10*3/?L. The reference range was not used to interpret this result as normal/abnormal . RBC (test code = 789-8) See_Comment L [Au tomated message] The system [facility] generated this result transmit annette reference [...] 777-3) See_Comment [Au tomated message] The system [facility] generated this result transmit annette reference range : 150 - 328 10*3/?L. The reference range was not used to interpret this result as normal/abnormal . MPV (test code = 10.7 fL 9.8-13.0 13079-0) RDW-CV (test code = 14.9 % 12.1-15.4 788-0) RDW-SD (test code = 48.9 fL 38.5-51.6 26483-9) NRBC x10^3 (test code = <0.01 See_Comment [Au tomated message] 3308691093) The system [facility] generated this result transmit annette reference range : 10*3/?L. The reference range was not used to interpret this result as normal/abnormal . NRBC/100 WBC (test code See_Comment [Au tomated message] = 8034394510) The system [facility] generated this result transmit annette reference range : 0.0 - 10.0 /100 WBC s. The reference r alisson was not used to interpret this result as normal/abnormal . IPF % (test code = 9528505300) Lab Interpretation (test Abnormal code = 64358-2) [facility] [id number] 22:31:26 Test Item Value Reference Range Interpretation Comments K (test code = 8885073832) 3.3 mmol/L 3.5-5 L Lab Interpretation (test code = Abnormal 54871-6) [facility] METABOLIC PANEL (NA, K, CL, CO2, GLUCOSE, BUN, CREATININE, CA)2022-04-27 22:31:26 Test Item Value Reference Range Interpretation Comments NA (test code = 144 mmol/L 135-145 3790283664) K (test code = 3.3 mmol/L 3.5-5 L 7080078491) CL (test code = 112 mmol/L 98-108 H 7624183129) CO2 TOTAL (test code = 27 mmol/L 23-31 9520567553) AGAP (test code = 2-16 5339070279) BUN (test code = 5 mg/dL 7-23 L 5301798334) GLUCOSE (test code = 118 mg/dL 70-110 H 0071026389) CREATININE (test code = 0.63 mg/dL 0.6-1.25 6252360075) CALCIUM (test code = 7.6 mg/dL 8.6-10.6 L 4847533792) eGFR (test code = mL/min/1.73m2 6119590333) LU (test code = LU) Association of [...] tests). Lab Interpretation Abnormal (test code = 44952-1) [facility] [id number] 22:31:26 Test Item Value Reference Range Interpretation Comments K (test code = 7866628508) 3.3 mmol/L 3.5-5.0 L Lab Interpretation (test code = Abnormal 03270-5) [facility] [id number] 22:31:26 Test Item Value Reference Range Interpretation Comments K (test code = 0585326093) 3.3 mmol/L 3.5-5.0 L Lab Interpretation (test code = Abnormal 54202-2) [facility] METABOLIC PANEL (NA, K, CL, CO2, GLUCOSE, BUN, CREATININE, CA)2022-04-27 22:31:26 Test Item Value Reference Range Interpretation Comments NA (test code = 144 mmol/L 135-145 9326110545) K (test code = 3.3 mmol/L 3.5-5.0 L 1832380629) CL (test code = 112 mmol/L 98-108 H 2759537157) CO2 TOTAL (test code = 27 mmol/L 23-31 2854371244) AGAP (test code = 2-16 8461593758) BUN (test code = 5 mg/dL 7-23 L 4915926054) GLUCOSE (test code = 118 mg/dL 70-110 H 5287303089) CREATININE (test code = 0.63 mg/dL 0.60-1.25 8889852293) CALCIUM (test code = 7.6 mg/dL 8.6-10.6 L 9961806502) eGFR (test code = mL/min/1.73m2 9088477773) LU (test code = LU) Association of [...] tests). Lab Interpretation Abnormal (test code = 13989-8) [facility]2022-07-05 21:22:49 Test Item Value Reference Range Interpretation Comments MAGNESIUM (test code = 6925329472) 2.1 mg/dL 1.7-2.4 Lab Interpretation (test code = Normal 96441-2) [facility]2022-07-05 21:22:49 Test Item Value Reference Range Interpretation Comments MAGNESIUM (test code = 1854252359) 2.1 mg/dL 1.7-2.4 Lab Interpretation (test code = Normal 55969-5) [facility]2022-07-05 21:22:49 Test Item Value Reference Range Interpretation Comments MAGNESIUM (test code = 1728096312) 2.1 mg/dL 1.7-2.4 Lab Interpretation (test code = Normal 67101-6) [facility] (NA, K, CL, CO2, GLUCOSE, BUN, CREATININE, CA)2022-04-27 15:50:29 Test Item Value Reference Range Interpretation Comments NA (test code = 143 mmol/L 135-145 8953389883) K (test code = 2.4 mmol/L 3.5-5 LL 8281549924) CL (test code = 110 mmol/L 98-108 H 5470799429) CO2 TOTAL (test code = 28 mmol/L 23-31 2462479712) AGAP (test code = 2-16 7805868336) BUN (test code = 4 mg/dL 7-23 L 9689475237) GLUCOSE (test code = 56 mg/dL 70-110 L 4831942225) CREATININE (test code = 0.65 mg/dL 0.6-1.25 4187570989) CALCIUM (test code = 7.7 mg/dL 8.6-10.6 L 6776126721) eGFR (test code = mL/min/1.73m2 9796527632) LU (test code = LU) Association of [...] tests). Lab Interpretation Abnormal (test code = 39591-5) [facility] METABOLIC PANEL (NA, K, CL, CO2, GLUCOSE, BUN, CREATININE, CA)2022-04-27 15:50:29 Test Item Value Reference Range Interpretation Comments NA (test code = 143 mmol/L 135-145 3866141081) K (test code = 2.4 mmol/L 3.5-5.0 LL 5048400969) CL (test code = 110 mmol/L 98-108 H 4035031404) CO2 TOTAL (test code = 28 mmol/L 23-31 1038570676) AGAP (test code = 2-16 8074906105) BUN (test code = 4 mg/dL 7-23 L 5435473569) GLUCOSE (test code = 56 mg/dL 70-110 L 2800248105) CREATININE (test code = 0.65 mg/dL 0.60-1.25 9473235124) CALCIUM (test code = 7.7 mg/dL 8.6-10.6 L 4778357126) eGFR (test code = mL/min/1.73m2 6517287110) LU (test code = LU) Association of [...] tests). Lab Interpretation Abnormal (test code = 95901-9) [facility] [id number] 23:23:37 Test Item Value Reference Interpretation Comments Range TROPONIN I (test 0.007 ng/mL See_Comment [Automated code = 8704538144) message] The system which generated this result [...] biotin. Lab Interpretation Normal (test code = 82994-4) [facility]. METABOLIC PANEL ([id number])2022-04-26 23:23:37 Test Item Value Reference Range Interpretation Comments NA (test code = 143 mmol/L 135-145 0754687106) K (test code = 2.3 mmol/L 3.5-5 LL 2691495240) CL (test code = 107 mmol/L 98-108 7214665555) CO2 TOTAL (test code = 27 mmol/L 23-31 3936131883) AGAP (test code = 2-16 4954418987) BUN (test code = 4 mg/dL 7-23 L 7675247039) GLUCOSE (test code = 86 mg/dL 70-110 4265743513) CREATININE (test code = 0.73 mg/dL 0.6-1.25 3742962940) TOTAL BILI (test code = 0.7 mg/dL 0.1-1.4 0845349565) CALCIUM (test code = 7.6 mg/dL 8.6-10.6 L 7526951021) T PROTEIN (test code = 6.5 g/dL 6.3-8.2 0973708159) ALBUMIN (test code = 2.7 g/dL 3.5-5 L 1365722542) ALK PHOS (test code = 96 U/L 34-122 7849010703) ALTv (test code = 13 U/L 5-50 1742-6) AST(SGOT) (test code = 22 U/L 13-40 7090654856) eGFR (test code = mL/min/1.73m2 2383538897) LU (test code = LU) Association of [...] tests). Lab Interpretation Abnormal (test code = 60128-5) [id number] Test Item Value Reference Interpretation Comments Range TROPONIN I (test 0.007 ng/mL See_Comment [Automated code = [id number]) message] The system which generated this result [...] biotin. Lab Interpretation Normal (test code = 39628-7) [facility] (04495)2022-04-26 23:23:37 Test Item Value Reference Range Interpretation Comments NA (test code = 143 mmol/L 135-145 6312152838) K (test code = 2.3 mmol/L 3.5-5.0 LL 2854800442) CL (test code = 107 mmol/L 98-108 7512318850) CO2 TOTAL (test code = 27 mmol/L 23-31 9614409736) AGAP (test code = 2-16 6349302558) BUN (test code = 4 mg/dL 7-23 L 5606753332) GLUCOSE (test code = 86 mg/dL 70-110 3593732833) CREATININE (test code = 0.73 mg/dL 0.60-1.25 8652911312) TOTAL BILI (test code = 0.7 mg/dL 0.1-1.3 8248272830) CALCIUM (test code = 7.6 mg/dL 8.6-10.6 L 5470820667) T PROTEIN (test code = 6.5 g/dL 6.3-8.2 4060936159) ALBUMIN (test code = 2.7 g/dL 3.5-5.0 L 1630658645) ALK PHOS (test code = 96 U/L 34-122 1570123220) ALTv (test code = 13 U/L 5-50 1742-6) AST(SGOT) (test code = 22 U/L 13-40 3983066436) eGFR (test code = mL/min/1.73m2 1389231519) LU (test code = LU) Association of [...] tests). Lab Interpretation Abnormal (test code = 11683-3) [id number] 23:23:37 Test Item Value Reference Interpretation Comments Range TROPONIN I (test 0.007 ng/mL See_Comment [Automated code = 2899661652) message] The system which generated this result [...] biotin. Lab Interpretation Normal (test code = 37550-3) [facility]. METABOLIC PANEL (49970)2022-04-26 23:23:37 Test Item Value Reference Range Interpretation Comments NA (test code = 143 mmol/L 135-145 6102071767) K (test code = 2.3 mmol/L 3.5-5.0 LL 3931427283) CL (test code = 107 mmol/L 98-108 5720622837) CO2 TOTAL (test code = 27 mmol/L 23-31 4261202882) AGAP (test code = 2-16 9463079865) BUN (test code = 4 mg/dL 7-23 L 3290089679) GLUCOSE (test code = 86 mg/dL 70-110 8747854475) CREATININE (test code = 0.73 mg/dL 0.60-1.25 6196951605) TOTAL BILI (test code = 0.7 mg/dL 0.1-1.4 1634965494) CALCIUM (test code = 7.6 mg/dL 8.6-10.6 L 7000898255) T PROTEIN (test code = 6.5 g/dL 6.3-8.2 9975429007) ALBUMIN (test code = 2.7 g/dL 3.5-5.0 L 7000921373) ALK PHOS (test code = 96 U/L 34-122 1667694250) ALTv (test code = 13 U/L 5-50 1742-6) AST(SGOT) (test code = 22 U/L 13-40 7516014549) eGFR (test code = mL/min/1.73m2 6912003616) LU (test code = LU) Association of [...] tests). Lab Interpretation Abnormal (test code = 04626-5) [facility]-TERMINAL [id number] 23:20:37 Test Item Value Reference Range Interpretation Comments NT-proBNP (test code 393 pg/mL See_Comment H [Autom ated = 1057696062) message] The system which generated this result transmitted reference range : <=125. The reference range was not used to interpret this result as normal/abnormal . LU (test code = LU) Biotin has been reported to cause a negative bias, interpret results relative to patient's use of biotin. Lab Interpretation Abnormal (test code = 81035-0) [facility] [id number] 23:20:37 Test Item Value Reference Range Interpretation Comments NT-proBNP (test code 393 pg/mL See_Comment H [Autom ated = 6875908213) message] The system which generated this result transmitted reference range : <=125. The reference range was not used to interpret this result as normal/abnormal . LU (test code = LU) Biotin has been reported to cause a negative bias, interpret results relative to patient's use of biotin. Lab Interpretation Abnormal (test code = 54822-6) [facility] [id number] 23:20:37 Test Item Value Reference Range Interpretation Comments NT-proBNP (test code 393 pg/mL See_Comment H [Autom ated = 6379011340) message] The system which generated this result transmitted reference range : <=125. The reference range was not used to interpret this result as normal/abnormal . LU (test code = LU) Biotin has been reported to cause a negative bias, interpret results relative to patient's use of biotin. Lab Interpretation Abnormal (test code = 85959-7) [facility] 23:11:39 Test Item Value Reference Range Interpretation Comments LIPASE (test code = 5695873639) 78 U/L 0-220 Lab Interpretation (test code = Normal 43327-6) [facility] 23:11:39 Test Item Value Reference Range Interpretation Comments LIPASE (test code = 9072370368) 78 U/L 0-220 Lab Interpretation (test code = Normal 37306-4) [facility] 23:11:39 Test Item Value Reference Range Interpretation Comments LIPASE (test code = 2697104994) 78 U/L 0-220 Lab Interpretation (test code = Normal 88407-1) [facility] WITH [id number] 22:55:18 Test Item Value Reference Range Interpretation Comments WBC (test code = See_Comment [Automated 6490-2) message] The sy stem which generated this [...] RDW-SD (test code = 45.2 fL 38.5-51.6 06996-1) RDW-CV (test code = 14.3 % 12.1-15.4 788-0) PLT (test code = See_Comment [Automated 777-3) message] The sy stem which generated this result transmitted reference range : 150 - 328 10*3/ ?L. The reference r alisson was not used to interpret this result as normal/abnormal . MPV (test code = 10.5 fL 9.8-13 08638-7) NRBC/100 WBC (test See_Comment [Automat ed code = 4229267648) message] The system which generated this result transmitted reference range : 0.0 - 10.0 /100 WBCs. The refer ence range was not u sed to interpret th is result as normal/abnormal . NRBC x10^3 (test code See_Comment [Auto mated = 5554805096) message] The s ystem which generated this result transmitted reference range : 10*3/?L. The reference range was not used to interpret this result as normal/abnormal . GRAN MAT (NEUT) % 73.6 % (test code = 770-8) IMM GRAN % (test code 0.30 % = 9733697311) LYMPH % (test code = 20.6 % 736-9) MONO % (test code = 4.9 % 5905-5) EOS % (test code = 0.3 % 713-8) BASO % (test code = 0.3 % 706-2) GRAN MAT x10^3(ANC) 6.49 10*3/uL 1.99-6.95 (test code = 6076940696) IMM GRAN x10^3 (test 0.03 10*3/uL 0-0.06 code = 0799846888) LYMPH x10^3 (test code 1.82 10*3/uL 1.09-3.23 = 731-0) MONO x10^3 (test code 0.43 10*3/uL 0.36-1.02 = 742-7) EOS x10^3 (test code = 0.03 10*3/uL 0.06-0.53 L 711-2) BASO x10^3 (test code 0.03 10*3/uL 0.01-0.09 = 704-7) Lab Interpretation Abnormal (test code = 61049-5) [facility] WITH [id number] 22:55:18 Test Item Value Reference Range Interpretation Comments WBC (test code = See_Comment [Automated 3790-2) message] The sy stem which generated this result transmitted reference range : 4.20 - 10.70 10*3/?L. The reference range was not used to interpret this result as normal/abnormal . RBC (test code = See_Comment L [Automated 089-8) message] The sy stem which generated this [...] RDW-SD (test code = 45.2 fL 38.5-51.6 75256-0) RDW-CV (test code = 14.3 % 12.1-15.4 788-0) PLT (test code = See_Comment [Automated 777-3) message] The sy stem which generated this result transmitted reference range : 150 - 328 10*3/ ?L. The reference r alisson was not used to interpret this result as normal/abnormal . MPV (test code = 10.5 fL 9.8-13.0 80281-4) NRBC/100 WBC (test See_Comment [Automat ed code = 4759529501) message] The system which generated this result transmitted reference range : 0.0 - 10.0 /100 WBCs. The refer ence range was not u sed to interpret th is result as normal/abnormal . NRBC x10^3 (test code <0.01 See_Comment [Auto mated = 8651980161) message] The s ystem which generated this result transmitted reference range : 10*3/?L. The reference range was not used to interpret this result as normal/abnormal . GRAN MAT (NEUT) % 73.6 % (test code = 770-8) IMM GRAN % (test code 0.30 % = 9341560795) LYMPH % (test code = 20.6 % 736-9) MONO % (test code = 4.9 % 5905-5) EOS % (test code = 0.3 % 713-8) BASO % (test code = 0.3 % 706-2) GRAN MAT x10^3(ANC) 6.49 10*3/uL 1.99-6.95 (test code = 0979448747) IMM GRAN x10^3 (test 0.03 10*3/uL 0.00-0.06 code = 4011324540) LYMPH x10^3 (test code 1.82 10*3/uL 1.09-3.23 = 731-0) MONO x10^3 (test code 0.43 10*3/uL 0.36-1.02 = 742-7) EOS x10^3 (test code = 0.03 10*3/uL 0.06-0.53 L 711-2) BASO x10^3 (test code 0.03 10*3/uL 0.01-0.09 = 704-7) Lab Interpretation Abnormal (test code = 01231-8) [facility] WITH [id number] 22:55:18 Test Item Value Reference Range Interpretation [...] RDW-SD (test code = 45.2 fL 38.5-51.6 25848-2) RDW-CV (test code = 14.3 % 12.1-15.4 788-0) PLT (test code = See_Comment [Automated 777-3) message] The sy stem which generated this result transmitted reference range : 150 - 328 10*3/ ?L. The reference r alisson was not used to interpret this result as normal/abnormal . MPV (test code = 10.5 fL 9.8-13.0 18539-7) NRBC/100 WBC (test See_Comment [Automat ed code = 1056001546) message] The system which generated this result transmitted reference range : 0.0 - 10.0 /100 WBCs. The refer ence range was not u sed to interpret th is result as normal/abnormal . NRBC x10^3 (test code <0.01 See_Comment [Auto mated = 4012790168) message] The s ystem which generated this result transmitted reference range : 10*3/?L. The reference range was not used to interpret this result as normal/abnormal . GRAN MAT (NEUT) % 73.6 % (test code = 770-8) IMM GRAN % (test code 0.30 % = 1940358015) LYMPH % (test code = 20.6 % 736-9) MONO % (test code = 4.9 % 5905-5) EOS % (test code = 0.3 % 713-8) BASO % (test code = 0.3 % 706-2) GRAN MAT x10^3(ANC) 6.49 10*3/uL 1.99-6.95 (test code = 5737786277) IMM GRAN x10^3 (test 0.03 10*3/uL 0.00-0.06 code = 1746416872) LYMPH x10^3 (test code 1.82 10*3/uL 1.09-3.23 = 731-0) MONO x10^3 (test code 0.43 10*3/uL 0.36-1.02 = 742-7) EOS x10^3 (test code = 0.03 10*3/uL 0.06-0.53 L 711-2) BASO x10^3 (test code 0.03 10*3/uL 0.01-0.09 = 704-7) Lab Interpretation Abnormal (test code = 05564-3) [facility] [id number] 16:42:42 Test Item Value Reference Range Interpretation Comments Case Report (test code Surgical Pathology ? ? = [id number]) ?Case: [id number] ? Authorizing Provider: ?Negrito Shaver MD ? Collected: ? 03/12/2022 1050 ?Ordering Location: ? ? [facility] ? ? ?Received: ?03/12/2022 1656 ? [facility] ?Pathologist: ? Carolin Ruiz MD ? Specimens: ? A) - APPENDIX ? B) - HERNIA SAC, RIGHT INGUINAL, RIGHT INGUINAL HERNIA SAC ? Final Diagnosis (test n2utjSXaQSNka6peYREolU code = 8234472162) FuZzEwMzNcZnRuYmpcdWMx IHtccnRmMVxhbnNpXGRlZm acnfmlVXRkFOU9ixFzXBKd VGJ2NZI1OfLfDISdDuu3VS XuCG3isVifyIk0pBcvMAPi svW5jCEkCQtqj6mqNTE5c4 rlgoboHHMaSNdkBp2boDDx dEalFmPhZFQxSGu7jJ71ZW ZnxK7pjJKqTOeeadBgCuJ2 TXvfLLNuXpH8ZFMerHScSH S9kArwMRGxoqcxSlW6IXfy KFGtauomSSj6BFjxXQJvcW E7VIBhwFUgY5YoLQLyLU9o xux5FOL8VYnzNMNjWoW4MZ NndCZbFULimZxyWMozm161 JPR0BvCcHURyqbSqhMyxvV 7aMtKnKKxnDKKsRB3pJOCN BA5LSKrlVZCBFMKTPBFIKM 9NWTpccGFyICAgICAtIEJF TklHTiBBUFBFTkRJWCBUSV VDFEWiJ4eMXJJYQKHZQVwn Z50KA1AJTYxAZtIPRfRTIH LKDDQRET1UCDCUQVhpJUGJ FV2VNQUOQBJHWEYhmITpPK FyhiAATdVjW4rsQgJlhXBm SEVSTklBIFNBQywgRVhDSV ODG184MTBozfn+CL2itoq+ ST7bZACPAybSMhKQNFHJEY gLCNcPRGEYWN8EPQVHAMWO M4GVTVZVZ4WpXEkEJ5GZXP vJRSxoMfULD8FKGULoV17R S2RXCCaYAozpSTZkubAeKE MdOSUmO59RZ1jKDHOYJVNK DZQLHDhXHp8VFLOHHTZekQ XcNFOzJ3HoWJIrOBMdmskx czIyIExpbmRzYXkgQmlnaG McCYAIZjEwPI3wUQ2xNESn FOP4UhTiCEUPQQKajirceb QwTDPofc16ICT8DhRtf7R2 UOHxGlGtZNBdFL0hyZhlMF YpTS2cOUYdO6vstP3cfvh3 SfIzLJHbCoF4VDDajqS3Gj g8VCEfJPsxk6fvk8IxM8Xz jDPjxIs1e6slXDNtNrT8jJ ImIEouY5edzrNnnJDpAZHd PEx8aMokEgQbERYmi0ihsx BcZmNoYXJzZXQwIENhbGli eae7iL04CQSiwM9jxJShCA uffkEvDiD2SGgxXDTqTsG3 CWXhpEAhBWOhN5usJLRmTS fpRULvTDrorJIrNWR6iXhs l0V4aDPxzSEpqGulMwTgUr VoYCORs9HaTVj1zPviU4En WMQiMsM4fGWoWCGaIZbgSW YkLHBidxZ9hK99XWfaugN6 sSHmt7Jcd56fr915fN1utH UbNHT9ARAvMGVaeNZiLBHr SBG3JKTwyNAkP9onULNdVF 3hmfulVJsyOOhcEIRbnPJ9 ZNCnuNRcX4RsAHLwSZtbJX Wfqly4AhSoIa7kgDFbpRap AKows4mfg6gjeXDvWno3TM ZyWtHbItvzZZkji1Hpd1rg FLKisf3rAMM7fZRjsXmta3 P2vIYnETAaeICsweRgNROx SgS5SHmdVS0kph62ZLWnWA A7vt7kuIJxoSvhytMysJWr YEoeB4RqUFTpp289XZJjP7 OfKQYwm1J1caHtGwAoYURm zNY1rqV7PNThNIs0wNNkkx W8jnImaZGxG5gwcM6zWYXc QN7wfmxuw5djZWsbJJrjYQ TpqSE8lxD0NMXisNZwE1Zz cE7uXCHyLVebMXVtlmn0Rn FkXm3uyYYxzQzuYBslMyam YWdlXHBnbmNvbnRccGduZG VjXHBsYWluXHBsYWluXGYw MERlCsBoiVwgoWrbjS2dKy DkSlFnFUbzLP2bDBSoT6ey hQXiMVUyYVWqP6nbZiYtpI 9jaFxmMVxjZjJcZnMyMFxw YXIgSSBoYXZlIHBlcnNvbm ClgBnpwtW8xRH0BVVxUVhq FERcOARovJRjeo2kjEwyBX YgBH7vVQAauhAqAGofjOsw ZEqiKRM7YJMrvUHpsEXumX FkZSBieSByZXNpZGVudHMs QSHjiXizx8Ddv3GwzBC7nF 8ld2ynn1WxIHWqpSA7HV38 yoJ7uP7wAOLcQM3jEAJsHO 0jrLFzyWElMSKss77ifZtc cyByZXBvcnQuXHBsYWluXG YyXGZzMjhcbGFuZzEwMzNc aGljaFxmMlxkYmNoXGYyXG xvX8xbKzMaYzLfMPgeZWR0 yCsxqlJuNXkyp5TzZ1ApJa AwMFxhbnNpXGRlZmxhbmcx FCIjONA3zuOiPKHiMAlwAC PxXRbtZf7txHNmlHyhWyOv QOMme3wdkjQLXNvmQtZtC6 53XVGdHIrhm5clk7WwYVJl oMZmx0O0QVESxymydRx6yC spG13ea6C4OdzfL7viSHEj MKJfN8MxGQ6qSIMoAep7ZD R9QVF1BMNrCWMuB1ZvTW7z ZRExlKIbPCl6o0fimQyrKZ LiDAO3d1wfPCmwgnX9PD4w bz2jvAu5g5ocjzQbKPNaQJ IhnUABSLAkD0FonUbbVx5s jRc4xFaaFoqdLAR1Zvk1FD 8ppx90vhd5pNbdFBJwsqwo KhQ3RYatNCUlsmqlOWs0EA huLIOdfNL2QIUguRGdG9Ff UHPcJI4jhof4UUR2WXjcCL FmWnU9HRZwzKUoZRJorJtl BIkbv982HLJ3SpEgZO4wO4 Wwk6Z2qR5gkCJzLPTarFVr BiAsPZItsa7yrEQsHYnzg5 KfN67dqJH0ZBglh5ueVP5f NjL3qjPvULylf4hgnG4iYe P0WWqbCT1bvq53FDWbGCR2 iu3qoGInwZtthkJncJLiBF gqR9NoRWRkf040USEpR6Fc UUMor0U3qrYmXzSoRSOtdG G7guA4PJVoCEv3wKDqcyM4 tlUohSMdQ2pvvJ2oCSJtNE 0cooagm6tjYHzkCHthMPGp xMC2epP3NVYzuFGaV1VuiZ 9vXNKdRRdtCDCouzy1PiZe Ix4toMOflJchNLibDjmaFI dlXHBnbmNvbnRccGduZGVj XHBsYWluXHBsYWluXGYwXG RdMsDduWOmSHben7FubzLn xBjvBELaMXv4taVmuuoeyB p4hZOziRrfLPHzmSizbO4a LiVnOoGkCVqoZB7zHQFtL6 buzFVhPAXsSXLlF9acWaLk rY5ckWkvTWpuPpAmFvSwKY xsdHJjaFxwYXIgSSBoYXZl ZYTmegMclvTlhBmrlfL2aJ E2KVBzWLevXFQeZZZpuMRn qa1edLuhKULlNC6qHWVhmj TqLVptbOsiDEnoDNI8FZQs bWVudHMgbWFkZSBieSByZX XiPYJwvGLeWGKalJxgf2Nl f6AcaNR7mL9dw5nzw1MnEO XnuYG9ZE25ixB6iO6kVTMx OJ9lDSSbIM8ryTIxjFRdFZ Jbt85cuYdoleTyWCCxulTq XHBsYWluXGYxXGZzMjBcbG FuZzEwMzNcaGljaFxmMVxk OaDcWSMmJPneV8uyXyNpS9 YyXGZzMjBccGFyXHBhclxw XEDsd1TrIkJpl2nnVJudo1 isnKa3PIexpHOdntqiWTrr jbL0QNRjAXtxHTTtCBDwVW RcbGFuZzEwMzNcaGljaFxm SAonXtAvPTUjXWasK6vmUg ApH5LhZLYdQOBodCLtB4pf WHC3hJ6bh5gxh3TdxCUiOd Vhv0lzakCkDFPhhNWvtnCc mLXfWKGwh4AhLBIqQCYxVA JRGt8NXJHgaOHoQ8n3kHRI IM5yhWDuYTViSXSxG1WbRu XSqlSgl1V0KKIrzCDoEHGN QTCtlFRfB8p9uPedVMcfKf r7UeIdxXncrK7rVoSrFkXp RGcxXC2aPUCgT6xxpNNnBL DtNNGeV5gnVjNvwG0akDtw MVxjZjJcZnMyMFxsdHJjaF mlTAI0uW== Clinical Information RIGHT INGUINAL HERNIA (test code = 9920671114) Gross Description (test x1nffJFzISSfhOKSRKBsB8 code = 5807196422) nvcxUmNERzhNUsP8Vcaacz ZZiuPB8fKS3olFxbpUUmcG FgOP0APVFcOsJbNXDzeRTt pmVrTtHgBIRdiFPfgJQ5BL ZpAT1pmvmoQTcmJUyzFBWk pdE4QHFsuZUiK5FnSHAiDV 4hqqxvTBR2UGhnpG3wbkOA BltwSn4evYWixKcwTeIxGo NoYXJzZXQwXGZuaWwgQXJp LPz2yR7QXllqCHC1ZNKDWr ocYOMpIS5Yb4dbSSAqlPLs MHV3BSxrwXNbNVSlLYVnSR e6TKPnDMwwaIAhNN1cuStl QgikiIkkq4GabCHtGKheLP DdPCYjMMeiXPVtBU0JZnEn LBL9DRikCWviUUp8QCv7XP 9WUyAiICAxODgyOTUyMSIg AMw0OGiqEV0YZMN8GsK1YZ J6FjmeYXIvBzulUIw4SWEy XFxmIEFyaWFsIFxcZnMgMT TaLPkijUPxQU9eiNzrbRBy blxmczIwIFNQRUNJTUVOIE QcmIHsWW0MZEZmQYcnSGOt mWMPTAR6UC5bNCAJIehvzF PwTLJbqVyhMXbbuF5pKI8Q YYv3knEoWFHsFjKdP0HqG8 kuBA5nGTUrlmSdYOTyyIBc LMMqxbKbv8RjVHnvuvEgGV JlbGVkIHdpdGggdGhlIHBh hQtzolTlbaYrZE1gKVZBOI HstK8lYDVxOeEmkDNyIPu2 EtxbGB4yOOAjyuEyx0SjQU 9mIGFuIGludGFjdCwgdmVy bWftc9VqFAPnqAXbKYv7LZ i2DjJgS59yrT6qsWXxY4Tl PKgpSK08WMGcJEBgmCZzbr QkiVUdGSClniuir2w0oPXe jXTvE8qaATUdVOSyKSCbYF 6eoVwfJX0lEGOsT5E5jQVy nQfsDVHxGWNaF8Spb65weW VwP9mfBhHQsTWjs0Qoo4Yv OHbuJWWdfg9nrS8oPYJxVV YnsxAjp66yclYvzMq4GBCc q631sPR1cWXvBGNsgynjg8 GgXVQ9BRZsTAxzBwSRsOXl d4VhI9auFA7qyWMbp8QobO YxcOitm0CukPvjlfFoJKJo KGJdlvAjjWS5SS5kiChjmw WdhXRwv2GsRzTxWTZnJL9a YOBldEZiWU3upkIrL6pyQb Pgzo9fZZQdyyMpwY68HQPw NSBjbSBpbiBkaWFtZXRlci Y9cOZ0GFBymrVwaG8yTQTf M85mnN19vmYvsV65reUrr2 Uzb70ucDB1GL5kVuKee78u SmNaMYgzxJH3XDSvDUapYN 7lZFUukoJkqvQ2fC6rduYc iiBzO5Qna1RpaOZwZLYyxV qarJKuSaDOPCT5lC4gziJ8 byBpbmNsdWRlIHRoZSBlbi OvLZRfUXKis9CwiUxkwkQa RWKosA4lMCqvl0DiTMMfnX UpLCByZXByZXNlbnRhdGl2 NNPoae9caa8vIQF8qQ7fSH JzzsSpIdkwTIH0IXOdoDyr MEOcDVVmrHGluET0LSJsnN 3wBMDlPHpowIcnoA6jMOFd N56rp2ZCw5TxTRMwUNkgo4 hsfKkem3WtfFUkHWinYENf pSWlKNicjB5oBpLhg8mxrL c1WTgglqS0JMWcil9BOtay OhoxrXcmp2YgcFNsDUvjMY WoKGTnOReoQFZdQZ3KLeNg OPS2BSjuNAavFDf1SFd8HK 5WUxSrRUBqOPlhMNc6LTHb YCf7NTzjFD1NCFS9BnE8LY C2TPMuASKaMowcKRq1CRMg XFxmIEFyaWFsIFxcZnMgMT FoWVflxREhVH2puDxmatCa IFNQRUNJTUVOIEJccGFyIA 6QERWkKOeqTLEjeMVTLML9 DA3jFGTPSrmvcOLuNDOxrJ knFKocqN4rJJ9GWFi8roNb EAPaRcRtU6KaM0rbKB3sGq BpcyByZWNlaXZlZCBpbiBm f4TkGXzlmbMzWQTxyPNcPI dpdGggdGhlIHBhdGllbnQn zmWhKS0eWHDCDVMajT3iBV MdVmEiiRcpdUXgfvj5nO2l lDNaFOEwgGZbh3BjIukkWK 4zEFXacqPqv7MtXX0jBIVg xWVxAWIlbyjcd1WtI6RoCZ Cuq57dtUZ1fSQsnAOeMiPo Y64vlpZyEBJsPAG2WUOvYI U3LAIvJhShjOnpk0duU5nt ePEjm5NrgEUerNafp8GgcL lvbmVkIHRvIHJldmVhbCB0 IU6peGtzcePkGW2ugtDfh9 ZsHHG5vQFkeQEvPWIgzx2x PGVxeOJug8VwoUP6gLMgGF TtZ3Fhq15zEBByLFZzbVCe gYH0EKJhgE1iVnGbCUPjcy PLTwrqMYZfCFuZINB2PPBu amVzdGthLCBQQSAoQVNDUC kNClxwbGFpblxlcGljTmVz dCSoZcQsuRcetN09QFStxS IiGNR8LL3yRLEygeqjOGFg KXMcPEQ2MUddtT41mTYeHU PrIYWnkXDxlC5QZYYaTHJ6 MCupbD35dAYlFQ6HNJCmPF Z8TILbxIWmMJW7XM5txX1D fQ== Disclaimer (test code = u3akmCQfWSCsv2tfHTJytJ [id number]) FuZzEwMzNcZnRuYmpcdWMx ZJkqlzGnDJqma8XfD1NnKa AwMFxhbnNpXGRlZmxhbmcx ZAYyFSP4lmAyNYWqMEfwNW WsCWrnBb6daQEkyEpdBsAd GYIli0fpdeCWLIxrPgOuE9 80FPKwEDfdz0xvm9TjUKVo yLXuk2P8WGSAyacqiIy7jB cuM47xu4X2PdrfZ3hkKOCr HCCjI6IeXV6hNFCoYfb6CJ G1DRE1LRAfIUPwQ0GwSC9h WWWljBNiRKr4p0uxuWuzIB KeHKN2w4sePZoqqvQtMV6z ve7haOc8o7tmejUwCBHyNK UhgPYUKWGlC6WocByjIl5v jGu2rAyiVbzuNRX9Ram0EF 5uxv67qum3jUrxMKEhoakt GaZ4BTpxQUPhfjioAPj5CT azKHQscCM2BEMldTTcW3Xy FDSoVL7ilps6LGP8OOdxZD EfYwM9XINtbKWySOFxiUaq BUkgb340GJB6KpAaFQ6sG7 Pro2B2zY8skKKkHWQrvKBs HdZrZFDypa2cmVKrFKidk9 FnHRG7uwW6gKTfrCAiOYVi WG75Cmiza1FrYaqlq5UjM1 5nhTJ0FAazl1sbPO6fXsI6 zePsFPpsi5pguS3lGnO0WP lhCT7mVF2oSJItbV2buupl XHBnYnJkcmhlYWRccGdicm QaXu3ltXtiFXT5DHmcU6do rL5iWkG1AVuvG0wpzQ0yLR b6ZBfwkSZ9SGYqpE3pUS0n nyoqh7gbUUeuWDqnJLHqzd C4dcD2LMKhzBWlN2WhaB7y JGEoJS8trzfjo7dgHXY7WS loUGNxPEW4XmNyTUUvo5Ma bgj3RjNgj7QqpHHaIVfrJ8 8es673EZOmyvNoX6zrwERp qooarUMecgkcMZlxpgK9IK LymnFil8KvMYFhSTG8FUfd RGbbpMSyBHOcsZhif1sjR4 RscGFyXHBsYWluXGYxXGZz MjBcbGFuZzEwMzNcaGljaF vnJRegCvUaELSdHBoiG5uh AcCtS0EwOPQwMgJdhESvB8 ggVGhpcyByZXBvcnQgbWF5 UPlsH2w8ARNutkYdkOx2vv TyKfHsTMLoMIR9YDjcdJNe LAPyx9KeyotuyXQdZw9jrZ LdUJHxmW4dMKUdNYKcZDpk JD8spVa4GHVRvHQueRSiMn VMPCBmHE51jjRxVHUCjddh n5C4MWmsVJNgo9NbgPKvR9 vaj4FjRALwi61lTR7jr3E2 l2jyYUN7ZY7ya5AhCZWqdM JmdCBaVGCzv9Pjsshqj8Zm QPEwudWce1IgYEZgexEidL FbQPWrnvQoib2vgjYjMYSw OONsB9GgvahkpVlbuhIwAG Yzfq2lweDqPJF7URGVKSJr HVKif2NwlF3acNDFGYR3vM Reue9doeBGxVJvNTJvvg44 ZVIoPF1bQ8dvJAMbIXKeqt DchRDpi3KhSXUnoBL6mIKk TT2GImMQn50aKLVoQRCBai IzXLPsjKysqZA6byB9qJ0z IChGREEpLlx+IFRoZSBGRE AaCQ5wplApa4QpirVxvHtf TTVwbPSff3JkcHDym1UveV xah4XbqLFlaJTeOJ8kBTQz clxwYXIgVVRNQiBMYWJvcm C2q2WjUHNpSUKoHOE7cYku jkn3IDCrbM7xVMAfZ1pbcy gaMHtfXZXyf1HbrP3mbUPH dXLxb4OkaRHhwRPZxXBdFR 2dvwXzLNzKREmPLAB0pzWx BYHsa0YtIZdeO8bcD98exL voaJu4iUX6SZO0kJ6kSlz+ IFxwYXJccGFyIEFwcHJvcH WhODSgeMwjqqNoE1BzlaQv aP5ifWHttgDjFZ5pMC6tS2 Z7gHLqBZTrxuYgd7rsUFav dmUgYmVlbiByZXZpZXdlZC Xil5YzPTjqHOT2NMojqePv bmNsdWRpbmcgSCZFLCBTcG BoxUVsPMB0VNhiueTvraFz RO1apU4cnNdomX4ecLUpuQ X3rmanDCTtRUSoeEgiAGWk KP3seGIhOBFyujUSlJqjjS OhuP9tG1JqKLDySPUaef8x GFSudE0gBSsgs3DolwgtPB IpBEXsAPIgmeHpfz8zZFZh iLAZZW2UJRtkvTGly7Ukyf TiU8nWVXT8NOOyOdXdApbq IAPrxPSdlQAqWVGfnh13ID GxzF5mzLbsOTGgmK5dkW0k sElpaH2vKzLrHuYqNTkpDU 3jLSWeC9nkiSLyQNFgCEVs Q3atWkVjtW8llHnqKYfwUv KgFyFcSKqeGFF7dX== Embedded Images (test code = 2049990944) [facility] This is a pre-surgical type and screen. ONCE [id number] 17:52:02 Test Item Value Reference Range Interpretation Comments ABO & RH (test AB POSITIVE Performed at [facility] code = 20) [facility] [place] [address] [id number] Free: [phone] A No. [id number] IAT (test code = Negative Performed a t [facility] 1185) [facility] [address] [place] [address] [id number] Free: [phone] A No. [id number] [facility]2022-04-14 23:13:17 Test Item Value Reference Range Interpretation Comments PALB (test code = 78231-9) 20.2 mg/dL 18.0-45.0 Lab Interpretation (test code = Normal 40224-8) [facility]AT[facility] FUN[facility] PAN[facility] (18397) (ALB,T.PRO,BILI T,BU/BC,ALT,AST,ALK PHOS)2022-02-04 23:05:58 Test Item Value Reference Range Interpretation Comments TOTAL BILI (test code = 2503524276) 0.4 mg/dL 0.1-1.1 BILI UNCON (test code = 8731314685) 0.2 mg/dL 0.1-1.1 BILI CONJ (test code = 1267622140) 0.0 mg/dL 0.0-0.3 T PROTEIN (test code = 6742518883) 7.7 g/dL 6.3-8.2 ALBUMIN (test code = 4704154524) 3.4 g/dL 3.5-5.0 L ALK PHOS (test code = 7022814584) 65 U/L 34-122 ALTv (test code = 1742-6) 11 U/L 5-50 AST(SGOT) (test code = 7161474681) 23 U/L 13-40 Lab Interpretation (test code = Abnormal 55764-8) [facility] [id number] 03:38:00 Test Item Value Reference Range Interpretation Comments AB HEPATITIS A IGM NEGATIVE (test code = HAVMAB) AG HEPATITIS B NEGATIVE SCREEN NEGATIVE SURFACE (test code = HBSAG) AB HEPATITIS B CORE NEGATIVE IGM (test code = HBCMAB) AB HEPATITIS C (test <0.1 RATIO <0.8 S/C RAT ION 0.0 - code = HCVAB) 0.9 NEGATIVE <0.8INDETERMINA TE 0.8 - 0.9POSITI VE >0.9 [id number] 16:06:00 Test Item Value Reference Range Interpretation Comments SURG (test code = SURG) RUN DATE: 10/07/20 [facility] PAGE 1 RUN TIME: 1607 Specimen Inquiry RUN USER: INTERFACE PATIENT: MYRON VICTORFIONA LOC: WINTER U #: [id number] AGE/SX: 35/M ROOM: WINTER RE10/06/20REG DR: Sreekanth Garcia MD : 84 BED: 3 DIS: STATUS: ADM Arcadio TLOC: SPEC #: [id number] RECD: 10/06/20 STATUS: ELZA REMaya #: [id number] MIRIAM: 10/06/[address]: Sreekanth Garcia MD ENTERED: 10/06/20 SP TYPE: SURG OTHR DR: DOES_NOT KNOW No Primary or Family Physician Juan Mcbride MD, Jignesh P MDORDERED: SURG PATH LVL 4 COPIES TO: DOES_NOT KNOW No Primary [place] [address] [address] [employer] [address] [place], [place] [address] Arnulfo Cormier MD [address] [place] [address] HISTOLOGY: TISSUE ID BLK PCS KANWAL LEV [...] [facility]:[id number] PATIENT: FIONA SANCHES JR #[id number] (Continued) CPT CODES CPT CODE(S): 58703 , , , , , , FINAL DIAGNOSIS Esophagus, biopsy: ACUTE ESOPHAGITIS WITH CANDIDIASIS NEGATIVE FOR INTESTINAL METAPLASIA, DYSPLASIA, OR MALIGNANCY GROSS DESCRIPTION Esophagus biopsy. Received in formalin are multiple minute fragments of suarez soft tissue, 0.1 - 0.3 cm. The specimen is filtered in a teabag and entirely submitted as A. ba/nr Grossing performed at [facility] Pathology, [address] [place] [address], [address], [place] [address]. Executive Pilot: Abner Steward M.D. MICROSCOPIC DESCRIPTION Esophagus biopsy. [...] indicativ e of the presence code = OAPMA34RS) ofSARS-CoV -2 RNA, clinical correlation wit h [...] indicativ e of the presence code = QRQYO58PU) ofSARS-CoV -2 RNA, clinical correlation wit h [...] for the identification of SARS-CoV-2 RNA usingthe Sontra M2000 Sy stem under the FDA Emergen cy UseAuthorizatio n. The testing is perf ormed by personneltraine d in the procedures for the Sontra M2000 molecular diagnostic SARS-CoV-2 assa y in vitro. CBC W/AUTO [id number] 13:10:00 Test Item Value Reference Range Interpretation [...] NT WITH AUTO DIFFERENTI AL. CBC W/AUTO [id number] 13:10:00 Test Item Value Reference Range Interpretation [...] CONSISTA NT WITH AUTO DIFFERENTI AL. RBC [id number] 13:10:00 Test Item Value Reference Range Interpretation Comments PLATELET ESTIMATE DECREASED THOUSAND ADEQUATE PLAT ELET COUNT (test code = REVIEWED AND PLTEST) VERIFIED. PLATELET MORPHOLOGY NORMAL (test code = PLTMORPH) CBC W/AUTO [id number] 13:10:00 Test Item Value Reference Range Interpretation [...] NT WITH AUTO DIFFERENTI AL. COMPREHENSIVE METABOLIC [id number] 11:48:00 Test Item Value Reference Range Interpretation [...] TOTAL (test code = ALKP) CBC W/AUTO [id number] 11:33:00 Test Item Value Reference Range Interpretation [...] REQUIRED (test code = DIFF/SCN CRITERIA MDIFF) [id number] 04:59:00 Test Item Value Reference Range Interpretation Comments AMMONIA (test code = AMM) 56 mcMOL/L 11-32 H LACTIC [id number] 04:59:00 Test Item Value Reference Range Interpretation Comments LACTIC ACID (test code = LACT) 0.7 mmol/L 0.4-2.0 N GLUCOSE BEDSIDE [id number] 20:35:00 Test Item Value Reference Range Interpretation Comments GLUCOSE BEDSIDE TESTING (test code 109 mg/dL 70-110 N = GLUBED) GLUCOSE BEDSIDE [id number] 17:10:00 Test Item Value Reference Range Interpretation Comments GLUCOSE BEDSIDE TESTING (test code 105 mg/dL 70-110 N = GLUBED) - US ABDOMEN [id number] 16:39:00 [facility] 1985 Sex: M Name:[facility]A [facility] : 1985 Age/S: 35 / M [address] Unit #: [id number] Loc: [place] [address] Phys: Matilda Kirk PA-C Acct: [id number] Dis Date: Status: ADM IN PHONE #: [phone] Exam Date: 10/06/2020 5291 FAX #: Reason: elevated lfts, evaluate for cirrhosis EXAMS: CPT: [id number] ABDOMEN [facility] [address] RIGHT UPPER QUADRANT ULTRASOUND. CLINICAL HISTORY: Elevated liver fu nction tests, evaluate for cirrhosis COMPARISON: CT chest dated October 06, 2020 COMMENT: Grayscaleand selected color Doppler ultrasound of the right [...] Signed Report (CONTINUED) Name: FIONA SANCHES JR [place] : 1985 Age/S: 35 / M [address] Unit #: [id number] Loc: [place] [address] Phys: Matilda Kirk PA-C Acct: [id number] D is Date: Status: ADM IN PHONE #: [phone] Exam Date: 10/06/2020 1517 FAX #: Reason: elevated lfts, evaluate for cirrhosis EXAMS: CPT: [id number] US ABDOMEN LTD [address]173 (Continued) CC: Sreekanth Garcia MD; Matilda Kirk Technologist: Rae Eaton [facility] Date/Time: 10/06/2020 (1639) [id number] Signed Report Name: FIONA SANCHES JR [place] : 1985 Age/S: 35 / M [address] Unit #: [id number] Loc: [place] [address] Phys: Matilda Kirk PA-C Acct: [id number] Dis Date: Status: ADM IN PHONE #: [phone] Exam Date: 10/06/2020 1518 FAX #: Reason: elevated lfts, evaluate for cirrhosis EXAMS: CPT: [id number] US ABDOMEN LTD [address] (Continued) Orig Print D/T: S: 10/06/2020 (1643) Probe: PAGE 3 Signed ReportUA RFLX MICR CULT IF [id number] 15:23:00 Test Item Value Reference Range Interpretation [...] 92 mg/dL 70-110 N GLUBED) GLUCOSE BEDSIDE [id number] 13:37:00 Test Item Value Reference Range Interpretation Comments GLUCOSE BEDSIDE TESTING (test code = 58 mg/dL 70-110 L GLUBED) CREATINE KINASE (CK)2020-10-06 11:26:00 Test Item Value Reference Range Interpretation Comments CREATINE KINASE (CK) (test code = 287 Unit/L 26-192 H CK) [id number] 11:26:00 Test Item Value Reference Range Interpretation Comments AMYLASE (test code = JOSE CARLOS) 120 Unit/L 25-115 H [id number] 11:26:00 Test Item Value Reference Range Interpretation Comments LIPASE (test code = LIP) 112 Unit/L 114-286 L CBC W/AUTO [id number] 09:58:00 Test Item Value Reference Range Interpretation [...] DIFF/SCN CRITERIA (test code = MDIFF) WBC [id number] 09:58:00 Test Item Value Reference Range Interpretation [...] NORMAL (test code = PLTMORPH) CBC W/AUTO [id number] 09:55:00 Test Item Value Reference Range Interpretation [...] DIFF/SCN CRITERIA (test code = MDIFF) WBC [id number] 09:55:00 Test Item Value Reference Range Interpretation Comments SEGMENTED NEUTROPHILS (test code = SEG) % 40-75 LYMPHOCYTE (test code = LYMPH) % 12.6-43.5 CBC W/AUTO [id number] 09:55:00 Test Item Value Reference Range Interpretation [...] DIFF/SCN CRITERIA (test code = MDIFF) WBC [id number] 09:55:00 Test Item Value Reference Range Interpretation Comments SEGMENTED NEUTROPHILS (test code = SEG) % 40-75 LYMPHOCYTE (test code = LYMPH) % 12.6-43.5 COMPREHENSIVE METABOLIC [id number] 09:14:00 Test Item Value Reference Range Interpretation [...] TOTAL (test code = ALKP) CBC W/AUTO [id number] 09:02:00 Test Item Value Reference Range Interpretation [...] CRITERIA (test code = MDIFF) GLUCOSE BEDSIDE [id number] 06:41:00 Test Item Value Reference Range Interpretation Comments GLUCOSE BEDSIDE TESTING (test code = 65 mg/dL 70-110 L GLUBED) COVID 19 INHOUSE [id number] 05:40:00 Test Item Value Reference Range Interpretation Comments COVID 19 INHOUSE AG NEGATIVE Negative Per [facility] facturer, (test code = negative result s should [id number]) be treated aspr esumptive and, if inconsi [...] co nsistent with COVID-19. - CT CHEST [id number] 03:30:00 [facility] : 1985 Sex: M Name: FIONA [facility]ES [facility] : 1985 Age/S: 35 / M [address] Unit #: [id number]: [place] [address] Phys: Scott Person MD Acct: [id number] Dis Date: Status: REG ER PHONE #: [phone] Exam Date: 10/06/2020 0240 FAX #: Reason: possible esophageal pneumatosis EXAMS: CPT: [id number] CT CHEST W/CONTRAST 68198 DICTATION LOCATION: H48 HISTORY: Male, 35 years [...] JR : 1985 Age/S: 35 / M [address] Unit #: [id number] Loc: [place] [address] Phys: Scott Person MD Acct: [id number] Dis Date: Status: REG ER PHONE #: [phone] Exam Date: 10/06/2020 0245 FAX #: Reason: possible esophageal pneumatosis EXAMS: CPT: [id number] CT CHEST W/CONTRAST 54162 (Continued) (i.e. scleroderma or dermatomyositis). Infiltrative neoplasm [...] Momin, RT(R)(CT); CTDI: DLP: Trnscb Date/Time: 10/06/2020 (329)t.JOSSELYN Orig Print D/T: S: 10/06/2020 (332) PAGE 2 Signed Report- CT NECK [id number] 03:11:00 [facility] : 1985 Sex: M Name:[facility] [place] : 1985 Age/S: 35 / M [address] Unit #: [id number] Loc: [place] [address] Phys: Scott Person MD Acct: [id number] Dis Date: Status: REG ER PHONE #:[phone] Exam Date: 10/06/2020 0250 FAX #: Reason: possible esophageal pneumatosis EXAMS: CPT: [id number] CT NECK W/CONTRAST 67490 EXAM: - CT NECK W/CONTRAST LOCATION: H57 [...] Signed Report (CONTINUED) Name: FIONA SANCHES JR [place] : 1985Age/S: 35 / M [address] Unit #: [id number] Loc: [place] [address] Phys: Scott Person MD Acct: [id number] Dis Date: Status: REG ER PHONE #: [phone] Exam Date: 10/06/2020 025 FAX #: Reason: possible esophageal pneumatosis EXAMS: CPT: [id number] CT NECK W/CONTRAST 45802 (Continued) CC: Technologist:Valentine Momin, RT(R)(CT); CTDI: DLP: Trnscb Date/Time: 10/06/2020 (310) [email or web address] Orig Print D/T: S: 10/06/2020 (313) PAGE 2 Signed ReportBASIC METABOLIC [id number] 02:14:00 Test Item Value Reference Range Interpretation [...]
--- NOTE | 2022-08-14 15:28 | RAD REPORT ---
EXAM DESCRIPTION: CT - Head C Spine Mpr Wo Con - 08/14/2022 3:09 pm CLINICAL HISTORY: Head and neck injury status post fall. Head and neck pain COMPARISON: May 2022 TECHNIQUE: Computed axial tomography of the head and cervical spine was obtained. Sagittal and coronal reconstruction was performed. All CT scans are performed using dose optimization technique as appropriate and may include automated exposure control or mA/KV adjustment according to patient size. FINDINGS: An intracranial bleed is not seen. The ventricles are normal in caliber. An extra-axial fl uid collection is not noted.Fluid within the visualized sinuses and mastoids is not seen A cervical fracture is not visualized. No dislocation is noted. Visualized esophagus is dilated fluid-filled IMPRESSION: No acute intracranial abnormality is seen. A cervical fracture is not visualized. If the patient continues to have symptoms to suggest intracra nial /spinal cord pathology then MRI would be recommended Visualized esophagus is dilated fluid-filled
--- NOTE | 2022-08-14 15:31 | ER ---
Nurse's Notes [facility] Name: Tahir Ag Jr Age: 37 yrs Sex: Male : 1985 Arrival Date: 08/14/2022 Time: 14:41 Bed 17 Private MD: Diagnosis: Unspecified injury of head, initial encounter Presentation: 08/14 14:57 Chief complaint: EMS states: toned out for fall from standing and hit back of head on eh3 floor. Coronavirus screen: Vaccine status: Patient reports receiving the 2nd dose of the covid vaccine. Ebola Screen: No symptoms or risks identified at this time. Initial Sepsis Screen: Does the patient meet any 2 criteria? No. Patient's initial sepsis screen is negative. Does the patient have a suspected source of infection? No. Patient's initial sepsis screen is negative. Risk Assessment: Do you want to hurt yourself or someone else? Patient reports no desire to harm self or others. Onset of symptoms was August 14, 2022. 14:57 Method Of Arrival: EMS: [facility] 14:57 Acuity: MARTINA 3 eh3 Triage Assessment: 14:58 General: Appears in no apparent distress. uncomfortable, Behavior is calm, cooperative, eh3 appropriate for age. Pain: Denies pain. Neuro: Level of Consciousness is awake, alert, obeys commands, Oriented to person, place, time, situation. Cardiovascular: Capillary refill < 3 seconds Patient's skin is warm and dry. Respiratory: Airway is patent Respiratory effort is even, unlabored. GI: Abdomen is flat, non-distended, PEG tube in place. Musculoskeletal: Circulation, motion, and sensation intact. Range of motion: intact in all extremities. Historical: - PMHx: 14:58 achalasia; Bipolar disorder; Diabetes - NIDDM; Hernia; Hypertension; Schizophrenia; eh3 Seizure; - PSHx: 14:58 gastrostomy tube; eh3 - Immunization history:: Adult Immunizations up to date. - Social history:: Smoking status: unknown. - Family history:: not pertinent. - Hospitalizations: : No recent hospitalization is reported. Screenin:00 Abuse screen: Denies threats or abuse. Denies injuries from another. Nutritional eh3 screening: appears malnourished. Tuberculosis screening: No symptoms or risk factors identified. Fall Risk Fall in past 12 months (25 points). Total [place] Fall Scale indicates Low Risk Score (25-44 pts). Fall prevention measures have been instituted. Side Rails Up X 2 Placed close to Nursing Station Frequent Obs/Assesments occuring As available Patient and Family Educated on Fall Prevention Program and strategies. Assessment: 15:00 General: Appears in no apparent distress. comfortable, Behavior is calm, cooperative, eh3 appropriate for age. Pain: Complains of pain in back of head. Neuro: Level of Consciousness is awake, alert, obeys commands, Oriented to person, place, time, situation. Cardiovascular: Capillary refill < 3 seconds Patient's skin is warm and dry. Respiratory: Airway is patent Respiratory effort is even, unlabored. Musculoskeletal: Circulation, motion, and sensation intact. Range of motion: intact in all extremities. 16:00 Reassessment: Patient and/or family updated on plan of care and expected duration. Pain eh3 level reassessed. Patient is alert, oriented x 3, equal unlabored respirations, skin warm/dry/pink. Vital Signs: 15:00 BP 91 / 67; Pulse 84; Resp 16; Temp 98.1(O); Pulse Ox 99% on R/A; eh3 15:00 BP 89 / 59; Pulse 74; Resp 16; Pulse Ox 99% on R/A; eh3 ED Course: 14:41 Patient arrived in ED. eb 14:42 Omari Wang MD is Attending Physician. rn 14:57 Genny Delgado RN is Primary Nurse. eh3 14:58 Triage completed. eh3 15:00 Patient has correct armband on for positive identification. Bed in low position. Call eh3 light in reach. Side rails up X2. Client placed on continuous cardiac and pulse oximetry monitoring. NIBP monitoring applied. 15:11 CT Head C Spine In Process Unspecified. EDMS 16:10 Arm band placed on right wrist. eh3 16:10 No provider procedures requiring assistance completed. Patient did not have IV access eh3 during this emergency room visit. Administered Medications: No medications were administered Medication: 16:10 VIS not applicable for this client. eh3 Outcome: 15:30 Discharge ordered by . rn 16:10 Discharged to home ambulatory. eh3 16:10 Condition: stable 16:10 Discharge instructions given to pt left before discharge instructions could be given 16:10 Patient left the ED. eh3 Signatures: Dispatcher [employer] Omari Bass MD MD rn Botello, Elizabeth eb Hall, Erin, RN RN 3
--- NOTE | 2022-08-14 15:31 | EDPHYS ---
Physician Documentation [facility] Name: Tahir Ag Jr Age: 37 yrs Sex: Male : 1985 Arrival Date: 08/14/2022 Time: 14:41 Bed 17 Private MD: ED Physician Omari Wang HPI: 08/14 15:02 This 37 yrs old Black Male presents to ER via EMS with complaints of fall, head injury. rn 15:02 Details of fall: The patient fell from an upright position, while standing. Onset: The rn symptoms/episode began/occurred just prior to arrival. Associated injuries: The patient sustained injury to the head. Severity of symptoms: At their worst the symptoms were mild, in the emergency department the symptoms are unchanged. The patient has not experienced similar symptoms in the past. The patient has not recently seen a physician. Pt reports standing at home, inside, tripped and fell backward, hit head on carpet. Not sure if passed out, denies other injuries. Ambulatory at scene for EMS. . Historical: - PMHx: 14:58 achalasia; Bipolar disorder; Diabetes - NIDDM; Hernia; Hypertension; Schizophrenia; eh3 Seizure; - PSHx: 14:58 gastrostomy tube; eh3 - Immunization history:: Adult Immunizations up to date. - Social history:: Smoking status: unknown. - Family history:: not pertinent. - Hospitalizations: : No recent hospitalization is reported. ROS: 15:02 Constitutional: Negative for fever, chills, and weight loss, Eyes: Negative for injury, rn pain, redness, and discharge, Neck: Negative for injury, pain, and swelling, Cardiovascular: Negative for chest pain, palpitations, and edema, Respiratory: Negative for shortness of breath, cough, wheezing, and pleuritic chest pain, Abdomen/GI: Negative for abdominal pain, nausea, vomiting, diarrhea, and constipation, Back: Negative for injury and pain, MS/Extremity: Negative for injury and deformity, Skin: Negative for injury, rash, and discoloration, Neuro: Negative for weakness, numbness, tingling, and seizure. Exam: 15:02 Constitutional: Cachectic male, no acute distress, in ccollar. Head/Face: rn Normocephalic, atraumatic. Eyes: Pupils equal round and reactive to light, extra-ocular motions intact. Neck: trachea midline, no midline cervical tenderness, in ccollar Cardiovascular: Regular rate and rhythm. No pulse deficits. Respiratory: No increased work of breathing, no retractions or nasal flaring. Abdomen/GI: Soft, non-tender MS/ Extremity: Pulses equal, no cyanosis. Neurovascular intact. Full, normal range of motion. Equal circumference. Neuro: Awake and alert, GCS 15, oriented to person, place, time, and situation. Vital Signs: 15:00 BP 91 / 67; Pulse 84; Resp 16; Temp 98.1(O); Pulse Ox 99% on R/A; eh3 15:00 BP 89 / 59; Pulse 74; Resp 16; Pulse Ox 99% on R/A; eh3 MDM: 14:43 Patient medically screened. rn 15:30 Differential diagnosis: closed head injury, contusion, fracture, sprain. Data reviewed: rn vital signs, nurses notes, radiologic studies, CT scan, and as a result, I will discharge patient. Counseling: I had a detailed discussion with the patient and/or guardian regarding: the historical points, exam findings, and any diagnostic results supporting the discharge/admit diagnosis, radiology results, the need for outpatient follow up, to return to the emergency department if symptoms worsen or persist or if there are any questions or concerns that arise at home. Special discussion: Based on the patient's history, exam and DX evaluation, there is no indication for emergent intervention or inpatient [place]. It is understood by the patient/guardian that if the SXs persist or worsen they need to return immediately for re-evaluation. I discussed with the patient/guardian in detail that at this point there is no indication for admission to the hospital. It is understood, however, that if the symptoms persist or worsen the patient needs to return immediately for re-evaluation. 08/14 14:43 Order name: CT Head C Spine; Complete Time: 15:30 rn Administered Medications: No medications were administered Disposition Summary: 08/14/22 15:30 Discharge Ordered Location: Home rn Problem: new rn Symptoms: have improved rn Condition: Stable rn Diagnosis - Unspecified injury of head, initial encounter rn Followup: rn - With: Private Physician - When: As needed - Reason: Recheck today's complaints, Re-evaluation by your physician Discharge Instructions: - Discharge Summary Sheet rn - Head Injury, Adult rn - Fall Prevention in the Home, Adult rn Forms: - Medication Reconciliation Form rn - Thank You Letter rn - Antibiotic 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
[2022-08-14 16:27] VITALS: BP 89/59; TEMP 98.1; O2SAT 99
== END 2022-08-14 16:10 | disposition home or self-care (01) ==
LOC: ER 14:39
DX: S09.90XA Unspecified injury of head, initial encounter (principal)
CPT/HCPCS: 70450; 72125; 99283

== ENCOUNTER 2022-08-20 11:42 | Emergency (ER) | payer OTHER ==
--- OUTSIDE RECORDS SUMMARY | 2022-08-20 11:55 | XMS REPORT | Continuity of Care Document ---
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 ibuprofen Yes [id number] 200mg Take 10 mL Univers 100 mg/5 mL 5-20 by mouth 3 it y of oral 00:00: (three) [place] suspension 00 times Medical daily with Branch meals. ibuprofen 2021-0 Yes [id number] 200mg Take 10 mL Univers 100 mg/5 mL 5-20 by mouth 3 it y of oral 00:00: (three) [place] suspension 00 times Medical daily with Branch meals. ibuprofen 2021-0 Yes [id number] 200mg Take 10 mL Univers 100 mg/5 mL 5-20 by mouth 3 it y of oral 00:00: (three) [place] suspension 00 times Medical daily with Branch meals. ibuprofen 2022-0 Yes [id number] 200mg Take 10 mL Univers 100 mg/5 mL 5-20 by mouth 3 it y of oral 00:00: (three) [place] suspension 00 times Medical daily with Branch meals. ibuprofen 2022-0 Yes [id number] 200mg Take 10 mL Univers 100 mg/5 mL 5-20 by mouth 3 it y of oral 00:00: (three) [place] suspension 00 times Medical daily with Branch meals. ibuprofen 2022-0 Yes [id number] 200mg Take 10 mL Univers 100 mg/5 mL 5-20 by mouth 3 it y of oral 00:00: (three) [place] suspension 00 times Medical daily with Branch meals. ibuprofen 2022-0 Yes [id number] 200mg Take 10 mL Univers 100 mg/5 mL 5-20 by mouth 3 it y of oral 00:00: (three) [place] suspension 00 times Medical daily with Branch meals. ibuprofen 2022-0 Yes [id number] 200mg Take 10 mL Univers 100 mg/5 mL 5-20 by mouth 3 it y of oral 00:00: (three) [place] suspension 00 times Medical daily with Branch meals. ibuprofen 2022-0 Yes [id number] 200mg Take 10 mL Univers 100 mg/5 mL 5-20 by mouth 3 it y of oral 00:00: (three) [place] suspension 00 times Medical daily with Branch meals. ibuprofen 2022-0 Yes [id number] 200mg Take 10 mL Univers 100 mg/5 mL 5-20 by mouth 3 it y of oral 00:00: (three) [place] suspension 00 times Medical daily with Branch meals. ibuprofen 2022-0 Yes [id number] 200mg Take 10 mL Univers 100 mg/5 mL 5-20 by mouth 3 it y of oral 00:00: (three) [place] suspension 00 times Medical daily with Branch meals. ibuprofen 2022-0 Yes [id number] 200mg Take 10 mL Univers 100 mg/5 mL 5-20 by mouth 3 it y of oral 00:00: (three) [place] suspension 00 times Medical daily with Branch meals. ibuprofen 2022-0 Yes [id number] 200mg Take 10 mL Univers 100 mg/5 mL 5-20 by mouth 3 it y of oral 00:00: (three) [place] suspension 00 times Medical daily with Branch meals. ibuprofen 2022-0 Yes [id number] 200mg Take 10 mL Univers 100 mg/5 mL 5-20 by mouth 3 it y of oral 00:00: (three) [place] suspension 00 times Medical daily with Branch meals. Immunizations Ordered Filled Immunization Date Status Comments [facility] e Immunization Name Name SARS-COV-2 COVID-19 2021-09-22 Completed Unive rsity of PFIZER VACCINE 00:00:00 [facility] SARS-COV-2 COVID-19 2021-09-22 Completed Unive rsity of PFIZER VACCINE 00:00:00 [facility] SARS-COV-2 COVID-19 2021-09-22 Completed Unive rsity of PFIZER VACCINE 00:00:00 [facility] SARS-COV-2 COVID-19 2021-09-22 Completed Unive rsity of PFIZER VACCINE 00:00:00 [facility] SARS-COV-2 COVID-19 2021-09-22 Completed Unive rsity of PFIZER VACCINE 00:00:00 [facility] SARS-COV-2 COVID-19 2021-09-22 Completed Unive rsity of PFIZER VACCINE 00:00:00 [facility] SARS-COV-2 COVID-19 2021-09-22 Completed Unive rsity of PFIZER VACCINE 00:00:00 [facility] SARS-COV-2 COVID-19 2021-09-22 Completed Unive rsity of PFIZER VACCINE 00:00:00 [facility] SARS-COV-2 COVID-19 2021-09-22 Completed Unive rsity of PFIZER VACCINE 00:00:00 [facility] SARS-COV-2 COVID-19 2021-09-22 Completed Unive rsity of PFIZER VACCINE 00:00:00 [facility] SARS-COV-2 COVID-19 2021-09-22 Completed Unive rsity of PFIZER VACCINE 00:00:00 [facility] SARS-COV-2 COVID-19 2021-09-22 Completed Unive rsity of PFIZER VACCINE 00:00:00 [facility] SARS-COV-2 COVID-19 2021-09-22 Completed Unive rsity of PFIZER VACCINE 00:00:00 [facility] SARS-COV-2 COVID-19 2021-09-22 Completed Unive rsity of PFIZER VACCINE 00:00:00 [facility] Influenza Virus 2020-08-30 Completed Universit y of Vaccine Quad .5 mL 00:00:00 [place] [facility] IM 6+ MO Branch Pneumococcal 2020-08-30 Completed University o f Polysaccharide, 00:00:00 [place] Med ical PPSV23 (PNEUMOVAX) Branch Influenza Virus 2020-08-30 Completed Universit y of Vaccine Quad .5 mL 00:00:00 [place] [facility] IM 6+ MO Branch Pneumococcal 2020-08-30 Completed University o f Polysaccharide, 00:00:00 [place] [facility] ical PPSV23 (PNEUMOVAX) Branch Influenza Virus 2020-08-30 Completed Universit y of Vaccine Quad .5 mL 00:00:00 [place] [facility] IM 6+ MO Branch Pneumococcal 2020-08-30 Completed University o f Polysaccharide, 00:00:00 [place] [facility] ical PPSV23 (PNEUMOVAX) Branch Influenza Virus 2020-08-30 Completed Universit y of Vaccine Quad .5 mL 00:00:00 [place] [facility] IM 6+ MO Branch Pneumococcal 2020-08-30 Completed University o f Polysaccharide, 00:00:00 [place] Med ical PPSV23 (PNEUMOVAX) Branch Influenza Virus 2020-08-30 Completed Universit y of Vaccine Quad .5 mL 00:00:00 [place] [facility] IM 6+ MO Branch Pneumococcal 2020-08-30 Completed University o f Polysaccharide, 00:00:00 [place] Med ical PPSV23 (PNEUMOVAX) Branch Influenza Virus 2020-08-30 Completed Universit y of Vaccine Quad .5 mL 00:00:00 [place] [facility] IM 6+ MO Branch Pneumococcal 2020-08-30 Completed University o f Polysaccharide, 00:00:00 [place] Med ical PPSV23 (PNEUMOVAX) Branch Influenza Virus 2020-08-30 Completed Universit y of Vaccine Quad .5 mL 00:00:00 [place] [facility] IM 6+ MO Branch Pneumococcal 2020-08-30 Completed University o f Polysaccharide, 00:00:00 [place] Med ical PPSV23 (PNEUMOVAX) Branch Influenza Virus 2020-08-30 Completed Universit y of Vaccine Quad .5 mL 00:00:00 [place] [facility] IM 6+ MO Branch Pneumococcal 2020-08-30 Completed University o f Polysaccharide, 00:00:00 [place] [facility] ical PPSV23 (PNEUMOVAX) Branch Influenza Virus 2020-08-30 Completed Universit y of Vaccine Quad .5 mL 00:00:00 [place] [facility] IM 6+ MO Branch Pneumococcal 2020-08-30 Completed University o f Polysaccharide, 00:00:00 [place] [facility] ical PPSV23 (PNEUMOVAX) Branch Influenza Virus 2020-08-30 Completed Universit y of Vaccine Quad .5 mL 00:00:00 [place] [facility] IM 6+ MO Branch Pneumococcal 2020-08-30 Completed University o f Polysaccharide, 00:00:00 [place] [facility] ical PPSV23 (PNEUMOVAX) Branch Influenza Virus 2020-08-30 Completed Universit y of Vaccine Quad .5 mL 00:00:00 [place] [facility] IM 6+ MO Branch Pneumococcal 2020-08-30 Completed University o f Polysaccharide, 00:00:00 [place] Med ical PPSV23 (PNEUMOVAX) Branch Influenza Virus 2020-08-30 Completed Universit y of Vaccine Quad .5 mL 00:00:00 [facility] IM 6+ MO Branch Pneumococcal 2020-08-30 Completed University o f Polysaccharide, 00:00:00 [place] Med ical PPSV23 (PNEUMOVAX) Branch Influenza Virus 2020-08-30 Completed Universit y of Vaccine Quad .5 mL 00:00:00 [facility] IM 6+ MO Branch Pneumococcal 2020-08-30 Completed University o f Polysaccharide, 00:00:00 [place] Med ical PPSV23 (PNEUMOVAX) Branch Influenza Virus 2020-08-30 Completed Universit y of Vaccine Quad .5 mL 00:00:00 [facility] 6+ MO Branch Pneumococcal 2020-08-30 Completed University o f Polysaccharide, 00:00:00 [place] [facility] ical PPSV23 (PNEUMOVAX) Branch Vital Signs Vital Name Observation Time Observation Value Comments Source Systolic blood 2022-08-10 13:09:00 96 mm[Hg] Univer sity of pressure [facility] Diastolic blood 2022-08-10 13:09:00 66 mm[Hg] Unive rsity of pressure [facility] Heart rate 2022-08-10 13:09:00 75 /min [facility] Body temperature 2022-08-10 13:09:00 34.28 [facility] 2022-08-10 13:09:00 165.1 cm [facility] Body weight 2022-08-10 13:09:00 35.607 kg [facility] BMI 2022-08-10 13:09:00 13.06 kg/m2 [facility] Systolic blood 2022-07-20 20:33:00 101 mm[Hg] Univer sity of pressure [place] [facility] Diastolic blood 2022-07-20 20:33:00 49 mm[Hg] Unive rsity of pressure [place] [facility] Heart rate 2022-07-20 20:33:00 67 /min Universi ty of [place] [facility] Body temperature 2022-07-20 20:33:00 36.11 Maude Univ ersity of [place] [facility] Respiratory rate 2022-07-20 20:33:00 18 /min Univ ersity of [place] [facility] Oxygen saturation in 2022-07-20 20:33:00 97 /min University of Arterial blood by [place] Xola erendira Pulse oximetry Branch Body weight 2022-07-20 02:15:00 41.277 kg Universi ty of [place] [facility] BMI 2022-07-20 02:15:00 15.14 kg/m2 Universi ty of [place] [facility] Body height 2022-07-10 02:38:00 165.1 cm Universi ty of [place] [facility] Systolic blood 2022-07-12 02:00:00 108 mm[Hg] Univer sity of pressure [place] [facility] Diastolic blood 2022-07-12 02:00:00 52 mm[Hg] Unive rsity of pressure [place] [facility] Heart rate 2022-07-12 02:00:00 96 /min Universi ty of [place] [facility] Body temperature 2022-07-12 02:00:00 36.67 Maude Univ ersity of [place] [facility] Respiratory rate 2022-07-12 02:00:00 25 /min Univ ersity of [place] [facility] Oxygen saturation in 2022-07-12 02:00:00 94 /min University of Arterial blood by [place] Xola erendira Pulse oximetry Branch Body weight 2022-07-11 08:23:00 35.97 kg Universi ty of [place] [facility] BMI 2022-07-11 08:23:00 12.83 kg/m2 [facility]i ty [facility] [place] [facility] Body height 2022-07-10 02:38:00 165.1 cm Universi ty of [place] [facility] Systolic blood 2022-05-27 03:00:00 94 mm[Hg] Univer sity of pressure [place] [facility] Diastolic blood 2022-05-27 03:00:00 69 mm[Hg] Unive rsity of pressure [place] [facility] Heart rate 2022-05-27 03:00:00 73 /min Universi ty of [place] [facility] Respiratory rate 2022-05-27 03:00:00 18 /min Univ ersity of [place] [facility] Oxygen saturation in 2022-05-27 03:00:00 100 /min University of Arterial blood by [facility] erendira Pulse oximetry Branch Body temperature 2022-05-27 00:00:00 36.67 Maude Univ ersity of [place] [facility] Body height 2022-05-27 00:00:00 165.1 cm Universi ty of [place] [facility] Body weight 2022-05-27 00:00:00 44.453 kg Universi ty of [place] [facility] BMI 2022-05-27 00:00:00 16.31 kg/m2 Universi ty of [place] [facility] Systolic blood 2022-05-04 13:19:00 100 mm[Hg] Univer sity of pressure [place] [facility] Diastolic blood 2022-05-04 13:19:00 66 mm[Hg] Unive rsity of pressure [place] [facility] Heart rate 2022-05-04 13:19:00 60 /min Universi ty of [place] [facility] Body temperature 2022-05-04 13:19:00 36.83 Maude Univ ersity of [place] [facility] Respiratory rate 2022-05-04 13:19:00 14 /min Univ ersity of [place] [facility] Oxygen saturation in 2022-05-04 13:19:00 98 /min University of Arterial blood by [facility] Pulse oximetry Branch Body weight 2022-04-29 08:40:00 41.958 kg Universi ty of [place] [facility] BMI 2022-04-29 08:40:00 15.39 kg/m2 Universi ty [facility] [place] [facility] Body height 2022-04-27 02:59:00 165.1 cm Universi ty of [place] [facility] Systolic blood 2022-04-28 14:24:00 112 mm[Hg] Univer sity of pressure [place] [facility] Diastolic blood 2022-04-28 14:24:00 77 mm[Hg] Unive rsity of pressure [place] [facility] Heart rate 2022-04-28 14:24:00 51 /min Universi ty [facility] [place] [facility] Body temperature 2022-04-28 14:24:00 36.56 Maude Univ ersity of [place] [facility] Respiratory rate 2022-04-28 14:24:00 16 /min [facility] ersity of [facility] Oxygen saturation in 2022-04-28 14:24:00 98 /min University of Arterial blood by [facility] Pulse oximetry Branch Body weight 2022-04-28 09:16:00 43.999 kg Universi ty of [facility] BMI 2022-04-28 09:16:00 15.39 kg/m2 Universi ty of [facility] Body height 2022-04-27 02:59:00 165.1 cm Universi ty of [facility] Systolic blood 2022-04-28 16:55:00 111 mm[Hg] Univer sity of pressure [facility] Diastolic blood 2022-04-28 16:55:00 74 mm[Hg] Unive rsity of pressure [facility] Heart rate 2022-04-28 16:55:00 55 /min Universi ty [facility] Body temperature 2022-04-28 16:55:00 36.39 Maude [facility] Respiratory rate 2022-04-28 16:55:00 15 /min [facility] Oxygen saturation in 2022-04-28 16:55:00 96 /min University of Arterial blood by [facility] Pulse oximetry Branch Body weight 2022-04-28 09:16:00 43.999 kg Universi ty of [facility] BMI 2022-04-28 09:16:00 16.14 kg/m2 Universi ty [facility] Body height 2022-04-27 02:59:00 165.1 cm Universi ty [facility] Procedures Procedure Date / Time Performing Source Performed Clinician POCT GLUCOSE (AUTOMATED) 2022-07-20 Jorden Robertson ity of 16:40:00 [facility] POCT GLUCOSE (AUTOMATED) 2022-07-20 Jorden Robertson ity of 12:49:00 [facility] PREALBUMIN, SERUM 2022-07-20 Kelvin [facility] o f 10:59:00 [facility] CORTISOL AM 2022-07-20 Dotty [place] [facility] of 10:59:00 [facility] PHOSPHORUS 2022-07-20 Jorden [facility] of 10:52:00 [facility] MAGNESIUM 2022-07-20 Jorden Robertson of 10:52:00 [facility] BASIC METABOLIC PANEL (NA, K, CL, 2022-07-20 Jorden [facility] of CO2, GLUCOSE, BUN, CREATININE, CA) 10:52:00 [facility] POCT GLUCOSE (AUTOMATED) 2022-07-20 Yesi Robertsoni Univers ity of 04:40:00 [facility] POCT GLUCOSE (AUTOMATED) 2022-07-20 Ovamarjit, Jorden Univers ity of 00:55:00 [facility] POCT GLUCOSE (AUTOMATED) 2022-07-19 Ovamarjit, Jorden Univers ity of 22:01:00 [facility] POCT GLUCOSE (AUTOMATED) 2022-07-19 Ovamarjit, Jorden Univers ity of 16:38:00 [facility] POCT GLUCOSE (AUTOMATED) 2022-07-19 Marcelo, Jorden Univers ity of 12:42:00 [facility] PHOSPHORUS 2022-07-19 Johana [facility] of 10:20:00 Tricia [facility] BASIC METABOLIC PANEL (NA, K, CL, 2022-07-19 Keysha Nguyen [facility] of CO2, GLUCOSE, BUN, CREATININE, CA) 10:20:00 D [facility] CBC WITH DIFF 2022-07-19 Deedee [facility] of 10:20:00 D [facility] POCT GLUCOSE (AUTOMATED) 2022-07-19 Jorden Robertson Univers ity of 08:56:00 [facility] POCT GLUCOSE (AUTOMATED) 2022-07-19 Kamron Robertsonlani Univers ity of 06:09:00 [facility] POCT GLUCOSE (AUTOMATED) 2022-07-19 OvKamron ocasiolani Univers ity of 01:10:00 [facility] POCT GLUCOSE (AUTOMATED) 2022-07-18 Ovamarjit, Jorden Univers ity of 21:12:00 [facility] POCT GLUCOSE (AUTOMATED) 2022-07-18 Ovamarjit, Jorden Univers ity of 16:26:00 [facility] POCT GLUCOSE (AUTOMATED) 2022-07-18 Marcelo, Jorden Univers ity of 13:13:00 [facility] PHOSPHORUS 2022-07-18 Marcelo, Jorden University of 10:08:00 [facility] MAGNESIUM 2022-07-18 [facility] of 10:08:00 [facility] BASIC METABOLIC PANEL (NA, K, CL, 2022-07-[address] [facility] of CO2, GLUCOSE, BUN, CREATININE, CA) 10:08:00 [facility] POCT GLUCOSE (AUTOMATED) 2022-07-18 Ovamarjit, Jorden Univers ity of 10:07:00 [facility] POCT GLUCOSE (AUTOMATED) 2022-07-18 Marcelo, Jorden Univers ity of 06:17:00 [facility] POCT GLUCOSE (AUTOMATED) 2022-07-18 Zachary Li Univers ity of 01:38:00 [facility] POCT GLUCOSE (AUTOMATED) 2022-07-17 Zachary Li Univers ity of 21:37:00 [facility] POCT GLUCOSE (AUTOMATED) 2022-07-17 Zachary Li Univers ity of 16:46:00 [facility] POCT GLUCOSE (AUTOMATED) 2022-07-17 Zachary Li Univers ity of 13:01:00 [facility] PHOSPHORUS 2022-07-17 [facility], [facility] of 09:12:00 [facility] MAGNESIUM 2022-07-17 [facility], [facility] of 09:12:00 [facility] BASIC METABOLIC PANEL (NA, K, CL, 2022-07-17 [facility], [facility] of CO2, GLUCOSE, BUN, CREATININE, CA) 09:12:00 [facility] CBC WITH DIFF 2022-07-17 Kelvin Muro [facility] of 09:12:00 [facility] POCT GLUCOSE (AUTOMATED) 2022-07-17 Zachary Li Univers ity of 09:10:00 [facility] POCT GLUCOSE (AUTOMATED) 2022-07-17 Zachary Li Univers ity of 05:23:00 [facility] POCT GLUCOSE (AUTOMATED) 2022-07-17 Zachary Li Univers ity of 01:06:00 [facility] POCT GLUCOSE (AUTOMATED) 2022-07-16 Zachary Li Univers ity of 21:35:00 [facility] POCT GLUCOSE (AUTOMATED) 2022-07-16 Zachary Li ity of 16:31:00 [facility] POCT GLUCOSE (AUTOMATED) 2022-07-16 Zachary Li ity of 09:19:00 [facility] PHOSPHORUS 2022-07-16 [facility] of 08:41:00 [facility] MAGNESIUM 2022-07-16 [facility] of 08:41:00 [facility] FERRITIN SERUM 2022-07-16 [facility] of 08:41:00 [facility] IRON 2022-07-16 [facility], [facility] of 08:41:00 [facility] TOTAL IRON BINDING CAPACITY 2022-07-16 [facility] ersity of 08:41:00 [facility] BASIC METABOLIC PANEL (NA, K, CL, 2022-07-16 [facility], May [facility] of CO2, GLUCOSE, BUN, CREATININE, CA) 08:41:00 [facility] CBC WITH DIFF 2022-07-16 [facility] of 08:41:00 [facility] RETICULOCYTES AUTOMATED 2022-07-16 Zachary Lii ty of 08:41:00 [facility] POCT GLUCOSE (AUTOMATED) 2022-07-16 Zachary Li Univers ity of 05:21:00 [facility] POCT GLUCOSE (AUTOMATED) 2022-07-16 Zachary Li Univers ity of 01:20:00 [facility] POCT GLUCOSE (AUTOMATED) 2022-07-15 Zachary Li ity of 21:53:00 [facility] POCT GLUCOSE (AUTOMATED) 2022-07-15 Zachary Li ity of 17:09:00 [facility] POCT GLUCOSE (AUTOMATED) 2022-07-15 Zachary Li ity of 13:45:00 [facility] XR KUB 2022-07-15 [facility] of 13:43:35 [facility] MAGNESIUM 2022-07-15 [facility] of 09:38:00 [facility] BASIC METABOLIC PANEL (NA, K, CL, 2022-07-15 [facility], May [facility] University of CO2, GLUCOSE, BUN, CREATININE, CA) 09:38:00 [facility] CBC WITH DIFF 2022-07-15 [facility] of 09:38:00 [facility] POCT GLUCOSE (AUTOMATED) 2022-07-15 Zachary Li ity of 04:59:00 [facility] POCT GLUCOSE (AUTOMATED) 2022-07-15 Zachary Li Univers ity of 01:09:00 [facility] POCT GLUCOSE (AUTOMATED) 2022-07-14 Zachary Li Univers ity of 21:08:00 [facility] POCT GLUCOSE (AUTOMATED) 2022-07-14 Zachary Li ity of 16:10:00 [facility] POCT GLUCOSE (AUTOMATED) 2022-07-14 Zachary Li ity of 12:39:00 [facility] PHOSPHORUS 2022-07-14 Zachary Li of 10:36:00 [place] [facility] MAGNESIUM 2022-07-14 [facility] of 10:36:00 [facility] IRON 2022-07-14 Zach[facility] of 10:36:00 [facility] COMP. METABOLIC PANEL ([id number]) 2022-07-14 Zachary Li Un iversity of 10:36:00 [facility] CBC WITH DIFF 2022-07-14 Zachary Li of 10:36:00 [facility] POCT GLUCOSE (AUTOMATED) 2022-07-14 Zachary Li Univers ity of 09:06:00 [facility] POCT GLUCOSE (AUTOMATED) 2022-07-14 Zachary Li Univers ity of 05:22:00 [facility] POCT GLUCOSE (AUTOMATED) 2022-07-13 Zachary Li ity of 22:27:00 [facility] POCT GLUCOSE (AUTOMATED) 2022-07-13 Zachary Li ity of 20:56:00 [facility] POCT GLUCOSE (AUTOMATED) 2022-07-13 Zachary Li ity of 15:49:00 [facility] POCT GLUCOSE (AUTOMATED) 2022-07-13 Zachary Li Univers ity of 15:15:00 [facility] POCT GLUCOSE (AUTOMATED) 2022-07-13 Zachary Li Univers ity of 14:59:00 [facility] PREALBUMIN, SERUM 2022-07-13 Jina [facility] o f 10:51:00 [facility]US [facility]07[facility] 10:[facility]NESIUM 2022-07-13 [facility] 10:51[facility]00 [facility] TOTAL IRON BINDING CAPACITY 2022-07-13 Zachary Li ersity of 10:51:00 [facility] BASIC METABOLIC PANEL (NA, K, CL, 2022-07-13 Jina, May [facility] University of CO2, GLUCOSE, BUN, CREATININE, CA) 10:51:00 [facility] CBC WITH DIFF 2022-07-13 [facility] 10:51:00 [facility] XR CHEST 1 VW 2022-07-12 [facility] of 21:52:10 [facility] PREALBUMIN, SERUM 2022-07-12 Zach[facility] of 15:31:00 [facility] VANCOMYCIN TROUGH 2022-07-12 [facility] of 11:07:00 [facility] VANCOMYCIN TROUGH 2022-07-12 [facility] of 11:07:00 [facility]US [facility]07[facility] 10[facility]:00 [facility] URIC ACID 2022-07-[address] [facility] 10:02:00 [facility] MAGNESIUM 2022-07-12 [facility] 10:02:00 [facility] BASIC METABOLIC PANEL (NA, K, CL, 2022-07-12 Jina, May [facility] University of CO2, GLUCOSE, BUN, CREATININE, CA) 10:02:00 [facility] CBC WITH DIFF 2022-07-12 [facility] 10:02:00 [facility]ORUS [facility]22[facility]07-[facility] 10:02:00 [facility] URIC ACID 2022-07-[address] [facility] 10:02:00 [facility] MAGNESIUM 2022-07-12 [facility] 10:02:00 [facility] BASIC METABOLIC PANEL (NA, K, CL, 2022-07-12 Jina, May [facility] University of CO2, GLUCOSE, BUN, CREATININE, CA) 10:02:00 [facility] CBC WITH DIFF 2022-07-12 [facility] 10:02:00 [facility] AC PANEL 20 + LACTIC ACID 2022-07-11 Johnny, [facility] ersity of 20:53:00 [facility] AC PANEL 20 + LACTIC ACID 2022-07-11 Johnny, [facility] ersity of 20:53:00 Elier [facility] SURGICAL PATHOLOGY EXAM 2022-07-11 [facility] of 20:28:00 [facility] XR CHEST 1 2022-07-11 [facility] of 19:33:38 [facility] XR CHEST 1 VW 2022-07-11 [facility] of 19:33:38 [facility] EXPLORATORY LAPAROTOMY 2022-07-11 [facility] y of 18:36:00 [facility] BOWEL RESECTION 2022-07-11 [facility] of 18:36:00 [facility] EXPLORATORY LAPAROTOMY 2022-07-11 [facility] y of 18:36:00 [facility] BOWEL RESECTION 2022-07-11 [facility] of 18:36:00 [facility] XR KUB 2022-07-11 [facility] of 16:08:01 [facility] XR KUB 2022-07-11 [facility] [facility], [facility] of 16:08:01 [facility] BASIC METABOLIC PANEL (NA, K, CL, 2022-07-11 [facility] of CO2, GLUCOSE, BUN, CREATININE, CA) 11:50:00 [facility] BASIC METABOLIC PANEL (NA, K, CL, 2022-07-11 Zachary Li of CO2, GLUCOSE, BUN, CREATININE, CA) 11:50:00 [facility] XR KUB 2022-07-11 [facility] of 11:39:00 [facility] XR KUB 2022-07-11 [facility] of 11:39:00 [facility] CBC WITH DIFF 2022-07-11 Zachary Li of 10:45:00 [facility] CBC WITH DIFF 2022-07-11 Zachary Li of 10:45:[address] [facility] [address] ABDOMEN PELVIS WO CONTRAST 2022-07-11 Zachary Li Un iversity of 01:46:[address] [facility] [address] ABDOMEN PELVIS WO CONTRAST 2022-07-11 Zachary Li Un iversity of 01:46:33 [facility] MRSA / MSSA SCREEN BY PCR, CLAUDIA 2022-07-10 Zachary Li of 23:27:00 [facility] MRSA / MSSA SCREEN BY PCR, CLAUDIA 2022-07-10 Zachary Li of 23:27:00 [facility] XR KUB 2022-07-10 [facility] of 22:40:17 [facility] [place] XR KUB 2022-07-10 [facility] of 22:40:17 [facility] LACTIC ACID WHOLE BLOOD 2022-07-10 Iram Payne [facility] ity of 16:06:00 J [facility] LACTIC ACID WHOLE BLOOD 2022-07-10 KerryIram [facility] ity of 16:06:00 J [facility] BLOOD CULTURE SCREEN 2022-07-10 Lupillo Taylor of 10:59:00 [place] [facility] [place] PHOSPHORUS 2022-07-10 Lupillo [facility] of 10:59:00 [facility] MAGNESIUM 2022-07-10 Lupillo Taylor [facility] of 10:59:00 [facility] BASIC METABOLIC PANEL (NA, K, CL, 2022-07-10 Aaron [facility] of CO2, GLUCOSE, BUN, CREATININE, CA) 10:59:00 [facility] CBC WITH DIFF 2022-07-10 Lupillo Taylor of 10:59:00 [facility] BLOOD CULTURE SCREEN 2022-07-10 Lupillo Taylor of 10:59:00 [facility] PHOSPHORUS 2022-07-10 Lupillo [facility] of 10:59:00 [facility] MAGNESIUM 2022-07-10 Lupillo Taylor [facility] of 10:59:00 [facility] BASIC METABOLIC PANEL (NA, K, CL, 2022-07-10 Aaron [facility] of CO2, GLUCOSE, BUN, CREATININE, CA) 10:59:00 [facility] CBC WITH DIFF 2022-07-10 Lupillo Taylor of 10:59:[address] [facility] [address] ABDOMEN PELVIS WO CONTRAST 2022-07-10 Lupillo Taylor Un iversity of 09:25:[address] [facility] [address] ABDOMEN PELVIS WO CONTRAST 2022-07-10 Lupillo Taylor Un iversity of 09:25:28 [facility] COVID-19 (ID NOW RAPID TESTING) 2022-07-10 Iram [facility] of 01:12:00 J [facility] COVID-19 (ID NOW RAPID TESTING) 2022-07-10 Iram Payne [facility] of 01:12:00 J [facility] LAB ONLY COVID INTERPRETATION 2022-07-10 Iram Payne [facility] of 01:12:00 J [facility] LACTIC ACID WHOLE BLOOD 2022-07-10 Iram Payne [facility] ity of 00:14:00 J [facility] LACTIC ACID WHOLE BLOOD 2022-07-10 Iram Payne [facility] ity of 00:14:00 J [facility] LIPASE 2022-07-10 Iram [facility] of 00:10:00 J [facility] MAGNESIUM 2022-07-10 Iram Payne [facility] of 00:10:00 J [facility] COMP. METABOLIC PANEL ([id number]) 2022-07-10 Iram Payne niversity of 00:10:00 J [facility] CBC WITH DIFF 2022-07-10 Iram Payne of 00:10:00 J [facility] LIPASE 2022-07-10 Iram Payne [facility] of 00:10:00 J [facility] MAGNESIUM 2022-07-10 Iram Payne [facility] of 00:10:00 J [facility] COMP. METABOLIC PANEL ([id number]) 2022-07-10 Iram Payne [facility] of 00:10:00 J [facility] CBC WITH DIFF 2022-07-10 Iram Payne [facility] of 00:10:00 [facility] NOTICE OF PRIVACY PRACTICES 2022-07-09 Doctor [facility] ersity of 23:38:54 Unassigned, No [facility] NOTICE OF PRIVACY PRACTICES 2022-07-09 Doctor [facility] ersity of 23:38:54 Unassigned, No [facility] CONSENT/REFUSAL FOR DIAGNOSIS AND 2022-07-09 Doctor [facility] TREATMENT 23:37:03 Unassigned, No [facility] CONSENT/REFUSAL FOR DIAGNOSIS AND 2022-07-09 Doctor [facility] TREATMENT 23:37:03 Unassigned, No [facility] COMP. METABOLIC PANEL ([id number]) 2022-05-27 Janene Taylor iversity of 00:31:00 [facility] CBC WITH DIFF 2022-05-27 Janene Taylor [facility] of 00:31:00 [facility] CONSENT/REFUSAL FOR DIAGNOSIS AND 2022-05-26 Doctor University of TREATMENT 23:52:11 Unassigned, No [facility] Branch XR KUB 2022-05-01 Manuelyan, [facility] of 15:57:16 [facility] BASIC METABOLIC PANEL (NA, K, CL, 2022-04-29 [place], [facility] of CO2, GLUCOSE, BUN, CREATININE, CA) 09:55:00 [facility] BASIC METABOLIC PANEL (NA, K, CL, 2022-04-29 [place], [facility] of CO2, GLUCOSE, BUN, CREATININE, CA) 09:55:00 [facility] CBC WITHOUT DIFF 2022-04-28 [facility] of 17:04:00 [facility] CBC WITHOUT DIFF 2022-04-28 [facility], [facility] of 17:04:00 [facility] CBC WITHOUT DIFF 2022-04-28 [facility], [facility] of 17:04:00 [facility] MAGNESIUM 2022-04-28 [facility], [facility] of 17:03:00 [facility] BASIC METABOLIC PANEL (NA, K, CL, 2022-04-28 [place], [facility] of CO2, GLUCOSE, BUN, CREATININE, CA) 17:03:00 [facility] BASIC METABOLIC PANEL (NA, K, CL, 2022-04-28 [place], [facility] of CO2, GLUCOSE, BUN, CREATININE, CA) 17:03:00 [facility] MAGNESIUM 2022-04-28 [facility] of 17:03:00 [facility] BASIC METABOLIC PANEL (NA, K, CL, 2022-04-28 [facility], [facility] of CO2, GLUCOSE, BUN, CREATININE, CA) 17:03:00 [facility] INTUBATION 2022-04-28 [facility] of 14:47:00 [facility] ESOPHAGOGASTRODUODENOSCOPY 2022-04-28 [facility] ersity of 14:27:00 K [facility] ESOPHAGOGASTRODUODENOSCOPY 2022-04-28 [facility] ersity of 14:27:00 K [facility] EGD (ENDO) 2022-04-28 [facility] of 14:21:27 [facility] EGD (ENDO) 2022-04-28 [facility] of 14:21:27 [facility] POTASSIUM SERUM 2022-04-27 Daniel [facility] of 22:05:00 Angie [facility] BASIC METABOLIC PANEL (NA, K, CL, 2022-04-27 [facility], [facility] of CO2, GLUCOSE, BUN, CREATININE, CA) 22:05:00 [facility] POTASSIUM SERUM 2022-04-27 [facility] of 22:05:00 [facility] BASIC METABOLIC PANEL (NA, K, CL, 2022-04-27 [facility], [facility] of CO2, GLUCOSE, BUN, CREATININE, CA) 22:05:00 [facility] POTASSIUM SERUM 2022-04-27 [facility] of 22:05:00 [facility] BASIC METABOLIC PANEL (NA, K, CL, 2022-04-27 [place], [facility] of CO2, GLUCOSE, BUN, CREATININE, CA) 22:05:00 [facility] BASIC METABOLIC PANEL (NA, K, CL, 2022-04-27 [facility], [facility] University of CO2, GLUCOSE, BUN, CREATININE, CA) 15:10:00 [facility] BASIC METABOLIC PANEL (NA, K, CL, 2022-04-27 [facility], [facility] of CO2, GLUCOSE, BUN, CREATININE, CA) 15:10:00 [facility] BASIC METABOLIC PANEL (NA, K, CL, 2022-04-27 [facility], [facility] of CO2, GLUCOSE, BUN, CREATININE, CA) 15:10:00 [facility] COVID-19 (ID NOW RAPID TESTING) 2022-04-27 Charlotte Miranda of 00:04:00 [facility] LAB ONLY COVID INTERPRETATION 2022-04-27 Charlotte Miranda Un iversity of 00:04:00 [facility] COVID-19 (ID NOW RAPID TESTING) 2022-04-27 [facility] of 00:04:00 [facility] LAB ONLY COVID INTERPRETATION 2022-04-27 Charlotte Miranda Un iversity of 00:04:00 [facility] COVID-19 (ID NOW RAPID TESTING) 2022-04-27 Charlotte Miranda [facility] of 00:04:00 [facility] LAB ONLY COVID INTERPRETATION 2022-04-27 Charlotte Miranda Un iversity of 00:04:[address] [facility] [address] THORAX W CONTRAST 2022-04-26 Charlotte Miranda of 23:01:[address] [facility] [address] THORAX W CONTRAST 2022-04-26 Albertwakenny, [facility] of 23:01:[address] [facility] [address] THORAX W CONTRAST 2022-04-26 Ruth, [facility] of 23:01:53 [facility] LIPASE 2022-04-26 Albertwakenny [facility] of 22:45:00 [facility] MAGNESIUM 2022-04-26 Maryjane [facility] of 22:45:00 [facility] TROPONIN I 2022-04-26 [facility] of 22:45:00 [facility] COMP. METABOLIC PANEL ([id number]) 2022-04-26 Charlotte Miranda Un iversity of 22:45:00 [facility] CBC WITH DIFF 2022-04-26 Albertwakenny [facility] of 22:45:00 [facility] N-TERMINAL PRO-BNP 2022-04-26 [facility] of 22:45:00 [facility] CBC WITH DIFF 2022-04-26 Nathanaelrawakenny, [facility] of 22:45:00 [facility] TROPONIN I 2022-04-26 [facility] of 22:45:00 [facility] N-TERMINAL PRO-BNP 2022-04-26 [facility] of 22:45:00 [facility] LIPASE 2022-04-26 [facility] of 22:45:00 [facility] COMP. METABOLIC PANEL ([id number]) 2022-04-26 Charlotte Miranda Un iversity of 22:45:00 [facility] MAGNESIUM 2022-04-26 Maryjane [facility] of 22:45:00 [facility] LIPASE 2022-04-26 [facility] of 22:45:00 [facility] MAGNESIUM 2022-04-26 Maryjane [facility] of 22:45:00 [facility] TROPONIN I 2022-04-26 [facility] of 22:45:00 [facility] COMP. METABOLIC PANEL ([id number]) 2022-04-26 Charlotte Miranda Un iversity of 22:45:00 [facility] CBC WITH DIFF 2022-04-26 Charlotte Miranda [facility] of 22:45:00 [facility] N-TERMINAL PRO-BNP 2022-04-26 Roberto [facility] of 22:45:00 [facility] HB ECG ROUTINE & RHYTHM STRIP 2022-04-26 Charlotte Miranda Un iversity of 22:15:20 [facility] HB ECG ROUTINE & RHYTHM STRIP 2022-04-26 Charlotte Miranda Un iversity of 22:15:20 [facility] HB ECG ROUTINE & RHYTHM STRIP 2022-04-26 [facility] of 22:15:20 [facility] XR CHEST 1 VW 2022-04-26 Ruth [facility] of 21:18:17 [facility] XR CHEST 1 VW 2022-04-26 Albertwakenny [facility] of 21:18:17 [facility] XR CHEST 1 VW 2022-04-26 [facility] of 21:18:17 [facility] CONSENT/REFUSAL FOR DIAGNOSIS AND 2022-04-26 [facility] 20:55:28 Unassigned, No [facility] CONSENT/REFUSAL FOR DIAGNOSIS AND 2022-04-26 [facility] 20:55:28 Unassigned, No [facility] CONSENT/REFUSAL FOR DIAGNOSIS AND 2022-04-26 [facility] 20:55:28 Unassigned, No [facility] SURGICAL PATHOLOGY EXAM 2022-03-12 [facility] 15:50:00 [facility] INTUBATION 2022-03-12 [facility] of 14:53:00 Dee Dee [facility] INGUINAL HERNIORRHAPHY 2022-03-12 Negrito Shaver [facility] y of 14:34:00 [facility] OPEN APPENDECTOMY 2022-03-12 Negrito Shaver [facility] of 14:34:00 [facility] DAY SURGERY - ADC 2022-03-12 [facility] of 05:01:00 Unassigned, No [facility] CONSENT/REFUSAL FOR DIAGNOSIS AND 2022-03-09 [facility] 20:29:26 Unassigned, No [facility] ASSIGNMENT OF BENEFITS 2022-03-09 [facility] y of 20:29:06 Unassigned, No [facility] COVID-19 (ID NOW RAPID TESTING) 2022-03-09 Negrito Shaver [facility] of 20:27:00 [place] [facility] LAB ONLY COVID INTERPRETATION 2022-03-09 Negrito Shaver Un iversity of 20:27:00 [facility] NOTICE OF PRIVACY PRACTICES 2022-03-09 Doctor [facility] ersity of 20:22:10 Unassigned, No [facility] CONSENT/REFUSAL FOR DIAGNOSIS AND 2022-03-09 [facility] of TREATMENT 20:21:53 Unassigned, No [facility] ASSIGNMENT OF BENEFITS 2022-03-09 Doctor [facility] of 20:21:32 Unassigned, No [facility] DISCLOSURE AND CONSENT, MEDICAL 2022-03-05 [facility] of AND SURGICAL PROCEDURES 05:01:00 Unassigned, No [facility] dical Name Branch INTUBATION 2022-02-25 Du [facility] of 17:01:00 [facility] HB ABO GROUPING 2022-02-25 Stephanie Galvez [facility] of 15:52:00 [facility] CONSENT/REFUSAL FOR DIAGNOSIS AND 2022-02-25 [facility] of TREATMENT 13:23:24 Unassigned, No [facility] COVID-19 (ID NOW RAPID TESTING) 2022-02-25 Zander Howe of 13:18:00 [facility] LAB ONLY COVID INTERPRETATION 2022-02-25 Zander Howe Un iversity of 13:18:00 [facility] ASSIGNMENT OF BENEFITS 2022-02-25 Doctor [facility] of 13:04:20 Unassigned, No [facility] DAY SURGERY - [place] 2022-02-25 [facility] 05:01:00 Unassigned, No [facility] REFERRAL- REQUEST/RESPONSE 2022-02-18 [facility] of 05:01:00 Unassigned, No [facility] Name Branch XR CHEST 2 VW 2022-02-04 Citlaly [facility] of 20:28:00 [facility] CBC WITH DIFF 2022-02-04 Citlaly [facility] of 20:11:00 [facility] BASIC METABOLIC PANEL (NA, K, CL, 2022-02-04 Malcolmsue [facility] of CO2, GLUCOSE, BUN, CREATININE, CA) 20:11:00 [facility] HEPATIC FUNCTION PANEL ([id number]) 2022-02-04 [facility] (ALB,T.PRO,BILI 20:11:00 [facility],BU/BC,ALT,AST,ALK PHOS) Branch PREALBUMIN, SERUM 2022-02-04 Liv Boucher [facility] 20:11:00 [facility] Plan of Care Planned Activity Planned [...] Future Scheduled Test 2021-07-24 00:00:00 IMM Influenza [facility] Seasonal Jul to December (>/= 19 yrs) [code = IMM Influenza Seasonal Jul to December (>/= 19 yrs)] Future Scheduled Test 1996 00:00:00 COVID-19 Vaccine (1) [facility] [code = COVID-19 Vaccine (1)] Future Scheduled Test 1984 00:00:00 COVID-19 Vaccine (#1) [facility] [code = COVID-19 Vaccine (#1)] Future Scheduled Test 1984 00:00:00 COVID-19 Vaccine (#1) [facility] [code = COVID-19 Vaccine (#1)] Future Scheduled Test 1984 00:00:00 COVID-19 Vaccine (#1) [facility] [code = COVID-19 Vaccine (#1)] Future Scheduled Test 1984 00:00:00 COVID-19 Vaccine (#1) [facility] [code = COVID-19 Vaccine (#1)] Future Scheduled Test 1984 00:00:00 COVID-19 Vaccine (#1) [facility] [code = COVID-19 Vaccine (#1)] Future Scheduled Test 1984 00:00:00 COVID-19 Vaccine (#1) [facility] [code = COVID-19 Vaccine (#1)] Future Scheduled Test 1984 00:00:00 COVID-19 Vaccine (#1) [facility] [code = COVID-19 Vaccine (#1)] Future Scheduled Test 1984 00:00:00 COVID-19 Vaccine (#1) [facility] [code = COVID-19 Vaccine (#1)] Future Scheduled Test 1984 00:00:00 COVID-19 Vaccine (#1) [facility] [code = COVID-19 Vaccine (#1)] Future Scheduled Test 1984 00:00:00 Fluoride Varnish [facility] [code = Fluoride Varnish] Future Scheduled Test 1984 00:00:00 Fluoride Varnish [facility] [code = Fluoride Varnish] Future Scheduled Test 1984 00:00:00 Fluoride Varnish [facility] [code = Fluoride Varnish] Future Scheduled Test 1984 00:00:00 Fluoride Varnish [facility] [code = Fluoride Varnish] Future Scheduled Test 1984 00:00:00 Fluoride Varnish [facility] [code = Fluoride Varnish] Future Scheduled Test 1984 00:00:00 Fluoride Varnish [facility] [code = Fluoride Varnish] Future Scheduled Test 1984 00:00:00 Fluoride Varnish [facility] [code = Fluoride Varnish] Future Scheduled Test 1984 00:00:00 Fluoride Varnish [facility] [code = Fluoride Varnish] Encounters Start End Encounter Admission Attending Care Care Encounter Source Date/Time Date/Time Type Type Clinicians Facility Department ID 2022-05-18 Outpatient [facility] [id number] [place] 14:53:18 [id number] [facility] 2022-01-18 Outpatient [facility] [id number] [place] 04:45:38 [id number] [facility] 2020-10-19 Inpatient X [facility] [id number] Univers 02:37:00 AMBAR [facility] 2020-10-06 Inpatient HCAPM JOSE [id number] [facility] 00:50:00 11 [facility] [place] 2023-02-08 2023-02-08 Outpatient R [facility] [id number] Univers 09:00:00 09:00:00 [facility] 2022-08-23 2022-08-23 Outpatient R PARKER CHAN [facility] 1 [id number] Univers 14:00:00 14:00:00 PARKER CHAN [facility] 2022-08-10 2022-08-10 Office Genie Laureano [facility] 1.2.840.114 [id number] Univers 09:00:00 09:30:00 Visit Dariel Hu [facility] 350.1.13. 10 ity of [facility] 4.2.7.2.686 [facility] s [id number] [address] 2022-08-10 2022-08-10 Outpatient R FRITZ [facility] [id number] Univers 09:00:00 09:00:00 DARIEL jared [facility] 2022-07-09 2022-07-20 Inpatient X MARCELO [facility] MAYI [id number] Univers 18:43:00 16:45:00 JORDEN [facility] 2022-07-09 2022-07-20 Hospital Iram Payne [facility] 1.2.84 0.114 [id number] Univers 18:43:00 16:45:00 Encounter Lupillo Taylor 350.1.13.10 ity of Zachary Li 4.2.7.2.686 [facility] [id number] Medical 081 Branch 2022-07-12 2022-07-12 Outpatient R [facility] [id number] Univers 13:30:00 13:30:00 ity of [facility] 2022-07-11 2022-07-11 Surgery [facility] 1.2.840.114 [id number] Univers 13:00:00 21:28:00 German ANALI 350.1.13.10 i ty of [place].686 [place] SUR[place]ICAL [id number] Med [facility] 020 Branch 2022-06-04 2022-06-04 Telephone YARELI Capps 1.2.840.114 [id number] Univers 00:00:00 00:00:00 Williams SAAVEDRA 350.1.13.10 it[place] of [place] [id number] [facility] 071 Branch 2022-05-26 2022-05-26 Emergency X ISAEL [facility] ERT [id number] Univers 19:02:00 22:40:00 RADHALI ity of [facility] 2022-05-26 2022-05-26 Emergency Janene Taylor [facility] 1.2.840. 114 [id number] Univers 19:02:00 22:40:00 Cindy Akins 350.1.13.10 [place].686 [place] [id number] [facility] 084 Branch 2022-05-05 2022-05-05 Transition SHARON Araujo 1.2.840.114 [id number] Univers 00:00:00 00:00:00 of Care Henrietta WILSON 350.1.13.10 [place] [id number] [facility] 403 Branch 2022-04-26 2022-05-04 Inpatient X AMELIE ALMEIDA [facility] [id number] Univers 16:01:00 12:18:00 AMELIE ALMEIDA ity of [facility] 2022-04-26 2022-05-04 [facility] Miranda [facility] 1.2.840.11 [id number] [facility] 16:01:00 12:18:00 [facility] 350.1. 13.10 ity of [place] 4.2.7.2.686 [facility] [id number] Medical [address] ([facility]) 2022-04-28 2022-04-28 Anesthesia Kameronmike Gayle Mejiai 1.2.840.1 1 [id number] Univers 09:38:00 10:28:00 Event Radu Schroeder 13755.1.1 ity of 3.104.2.7 [place] .3.854595 Medica l .[address] [place] 2022-04-28 2022-04-28 Surgery [facility] 1.2.840.114 [id number] [facility] 09:30:00 10:01:00 Derrell SPECIALTY 350.1.13.10 ity of CARE 4.2.7.2.686 [facility] AT [id number] [place] stephanie [place] [address] [place] [address] 2022-04-27 2022-04-27 Anesthesia Alex Fawn 1.2.840.1 [id number] Univers 12:29:50 12:29:50 Event Sabrina Sanchez 45933.1.1 ity of 3.104.2.7 [place] .3.194264 Medica l .8 [place] 2022-04-26 2022-04-26 Travel 1.2.840.1 1.2.518.001 [id number] Univers 00:00:00 00:00:00 41035.1.1 350.1.13.10 ity of 3.104.2.7 4.2.7.3.698 [facility] .3.984745 084.8 Medica l .8 [place] 2022-04-05 2022-04-05 Telephone Catrett, 1.2.840.2 [id number] Univers 00:00:00 00:00:00 Mitzy 68232.1.1 ity of 3.104.2.7 [place] .3.816010 Medica l .8 [place] 2022-04-02 2022-04-02 Office Sivakumar [facility] 1.2.840.114 [id number] Univers 11:45:00 11:45:00 Visit Negrito BRIONES 350.1.13.10 i ty of [place] 4.2.7.2.686 [place] PROFESSIO [id number] [place] dical NAL 188 [facility] 2022-04-02 2022-04-02 Office Sivakumar, 1.2.840.9 [id number] Univers 11:45:00 11:45:00 Visit Negrito 61529.1.1 ity of [place] 3.104.2.7 [place] .3.450024 Medica l .8 [place] 2022-04-02 2022-04-02 Outpatient R SIVAKUMAR [facility] [id number] Univers 11:45:00 11:33:03 NEGRITO ity of [facility] 2022-04-02 2022-04-02 Travel 1.2.840.1 1.2.665.811 [id number] Univers 00:00:00 00:00:00 02819.1.1 350.1.13.10 ity of 3.104.2.7 4.[place].7.3.698 [place] .3.808148 084.8 Medica l .8 [place] 2022-03-24 2022-03-24 Telephone Zander Howe [facility] 1.2.840.114 [id number] Univers 00:00:00 00:00:00 Y HEALTH 350.1.13.10 i ty of CLINICS 4[place]2.7.2.[place] [id number] [facility] erendira [address] [place] 2022-03-24 2022-03-24 Telephone Zander Howe 1.2.840.7 [id number] Univers 00:00:00 00:00:00 87368.1.1 ity of 3.104.2.7 [place] .3.525461 Medica l .8 Branch 2022-03-19 2022-03-19 Telephone Zander Howe 1.2.840.114 [id number] Univers 00:00:00 00:00:00 NAMRATA 350.1.13.10 it y of [facility] 4.2.7.2.686 Roc as [id number] [facility] 0[address] [place] 2022-03-19 2022-03-19 Telephone Zander Howe 1.2.840.9 [id number] Univers 00:00:00 00:00:00 94652.1.1 ity of 3.104.2.7 [place] .3.074466 Medica l .8 [place] 2022-03-12 2022-03-12 Outpatient [facility] STEPHANIE [id number] Univers 08:13:00 16:20:00 NEGRITO ity of [facility] 2022-03-12 2022-03-12 [facility] 1.2.840.114 [id number] Univers 08:13:00 16:20:00 Encounter Negrito BRIONES 350.1.13.10 ity of [place] 4.2.[place]ICAL [id number] [facility] [address] [place] 2022-03-12 2022-03-12 [facility], 1.2.840.3 [id number] Univers 08:13:00 16:20:00 Encounter Negrito 59025.1.1 it y of [place] 3.104.2.7 [place] .3.755886 Medica l .8 [place] 2022-03-12 2022-03-12 Anesthesia Carley Fregoso 1.2.840.1 [id number] Univers 09:44:00 12:14:00 Event Richard Granados 50874.1.1 ity of 3.104.2.7 [place] .3.593264 Medica l .8 Branch 2022-03-12 2022-03-12 Surgery [facility] 1.2.840.114 [id number] Univers 09:54:00 12:12:00 Negrito BRIONES 350.1.13.10 i ty of [place] 4.2.7.2.686 [facility] SURGICAL [id number] [facility] CENTER [address] 2022-03-12 2022-03-12 Surgery Sivakumar, 1.2.840.8 [id number] Univers 09:54:00 12:12:00 Negrito 95547.1.1 ity of [place] 3.104.2.7 [place] .3.034831 Medica l .[address] [place] 2022-03-09 2022-03-09 Laboratory Only, Adc Test [facility] 1.2.840. 114 [id number] Univers 10:15:00 10:30:00 Only Negrito Shaver 350.1.13 .10 ity of [place] 4.2.7.2.686 [facility] [phone] [facility] [address] 2022-03-09 2022-03-09 Laboratory Negrito Shaver 1.2.840.0 [id number] Univers 10:15:00 10:30:00 Only Only, Adc Test 15520.1.1 ity of 3.104.2.7 [place] .3.706258 Medica l .[address] [place] 2022-03-09 2022-03-09 Outpatient R SIVAKUMAR [facility] [id number] Univers 10:15:00 10:15:00 NEGRITO walker of [facility] 2022-03-09 2022-03-09 Travel 1.2.840.1 1.2.904.084 [id number] Univers 00:00:00 00:00:00 05657.1.1 350.1.13.10 ity of 3.104.2.7 [place].3.698 [place] .3.4435[place] 084.8 Medica l .[address] [place] 2022-03-05 2022-03-05 Outpatient Lisa SHAVER [facility] [id number] Univers 10:15:00 12:01:28 NEGRITO walker of [facility] 2022-03-05 2022-03-05 Office Sivakumar [facility] 1.2.840.114 [id number] Univers 10:15:00 12:01:28 Visit Negrito BRIONES 350.1.13.10 i ty of [place] [phone] [place]ical NAL 188 [facility] 2022-03-05 2022-03-05 Outpatient Lisa SHAVER [facility] [id number] Univers 10:15:00 12:01:28 NEGRITO itjared [facility] 2022-03-05 2022-03-05 Office Sivakumar, 1.2.840.6 [id number] 706 Univers 10:15:00 12:01:28 Visit Negrito 33721.1.1 ity of [place] 3.104.2.7 [place] .3.097687 Medica l .[address] [place] 2022-03-05 2022-03-05 Outpatient Lisa SHAVER [facility] [id number] Univers 10:15:00 10:15:00 NEGRITO aaron [facility] 2022-02-25 2022-02-25 Outpatient ZANDER [facility]AS [facility] [id number] Univers 08:04:00 13:21:00 ity [facility] 2022-02-25 2022-02-25 [facility] ANGIE 1.2.840.114 [id number] Univers 08:04:00 13:21:00 Encounter NAMRATA 350.1.13.10 ity of [facility] 4.2.7.2.686 Roc as [id number] [facility] [address] 2022-02-25 2022-02-25 [facility] 1.2.840.0 [id number] Univers 08:04:00 13:21:00 Encounter 04904.1.1 it y of 3.104.2.7 [place] .3.400322 Medica l .[address] [place] 2022-02-25 2022-02-25 Surgery [facility] ANGIE 1.2.332.068 [id number] Univers 09:35:00 12:45:00 NAMRATA 350.1.13.10 it y of [facility] 4.2.7.2.686 [place] as [id number] [facility] [address] 2022-02-25 2022-02-25 Surgery [facility] 1.2.840.3 [id number] [id number] Univers 09:35:00 12:45:00 64262.1.1 ity of 3.104.2.7 [place] .3.424462 Medica l .8 Branch 2022-02-25 2022-02-25 Anesthesia Yung Arita 1.2.840.6 [id number] Univers 11:53:00 12:33:00 Event Francis Wong 43441.1.1 ity of 3.104.2.7 [place] .3.175689 Medica l .8 Branch 2022-02-24 2022-02-24 Travel 1.2.840.1 1.2.167.018 [id number] [id number] Univers 00:00:00 00:00:00 96462.1.1 350.1.13.10 ity of 3.104.2.7 4[place].7.3.698 [place] .3.852043 084.8 Medica l .[address] [place] 2022-02-18 2022-02-18 Orders Doctor NEGRITO 1.2.840.114 [id number] Univers 00:00:00 00:00:00 Only Unassigned, NAMRATA 350.1.13.10 ity of [facility] 4.2.7.2.686 Roc as [id number] [facility] [address] 2022-02-18 2022-02-18 Orders Doctor 1.2.840.4 [id number] Univers 00:00:00 00:00:00 Only Unassigned, 71728.1.1 ity of [place] 3.104.2.7 [place] .3.295993 Medica l .[address] [place] 2022-02-15 2022-02-15 Telephone ShirleyNEGRITO 1.2.372.028 0933 [id number] Univers 00:00:00 00:00:00 Stephanie TERESA 350.1.13.10 ity of HOSPITAL 4.2.7.2.686 [place] [id number] [facility] [address] 2022-02-15 2022-02-15 Telephone Shirley, .2.840.0 [id number] [id number] Univers 00:00:00 00:00:00 Stephanie Rose 69789.1.1 it y of 3.104.2.7 [place] .3.967795 Medica l .8 [place] 2022-02-09 2022-02-09 [place] NEGRITO Galvez 1.2.694.353 5469 0554 Univers 00:00:00 00:00:00 Stephanie TERESA 350.1.13.10 ity of HOSPITAL 4.2.7.2.686 [place] [id number] [facility] [address] 2022-02-09 2022-02-09 [facility], 1.2.840.2 [id number] [id number] Univers 00:00:00 00:00:00 Stephanie Rose 64143.1.1 it y of 3.104.2.7 [place] .3.309200 Medica l .8 Branch 2022-02-08 2022-02-08 [facility] NEGRITO Galvez 1.2.840.114 [id number] Univers 00:00:00 00:00:00 Management Stephanie TERESA 350.1.13.10 ity of [facility] 4.2.7.2.686 [place] [id number] [facility] [address] 2022-02-08 2022-02-08 [facility], 1.2.840.2 [id number] 687 Univers 00:00:00 00:00:00 Management Stephanie Rose 14546.1.1 ity of 3.104.2.7 [place] .3.919799 Medica l .8 [place] 2022-02-04 2022-02-04 [facility] Howe[facility]ERS[facility] 1.2.840.114 [id number] Univers 15:17:56 23:59:00 Encounter Y HEALTH 350.1.13.10 ity [place] [id number] [facility] [address] 2022-02-04 2022-02-04 [facility] Zander Howe 1.2.840.9 [id number] Univers 15:17:56 23:59:00 Encounter 03542.1.1 it y of 3.104.2.7 [place] .3.811703 Medica l .8 Branch 2022-02-04 2022-02-04 Forensic Dna Analyst Zander Howe 1.2.840.3 [id number] Univers 15:30:00 15:47:42 Visit [facility] 10567.1.1 ity of 3.104.2.7 [place] .3.783741 Medica l .[address] [place] 2022-02-04 2022-02-04 Forensic Dna Analyst [facility] UNIVERSIT 1.2.840.114 9 [id number] Univers 15:30:00 15:45:00 Visit Zander Howe Y HEALTH 350.1.13.10 ity [place] [id number] [facility] [address] 2022-02-04 2022-02-04 Outpatient R ZANDER HOWE [facility] [id number] Univers 13:30:00 14:38:59 ity of [facility] 2022-02-04 2022-02-04 Office Zander Howe UNIVERSIT 1.2.840.114 [id number] Univers 13:30:00 14:38:59 Visit HEALTH 350.1.13.10 i ty [place] [id number] [facility] [address] 2022-02-04 2022-02-04 Outpatient R ZANDER HOWE [facility] [id number] Univers 13:30:00 14:38:59 ity of [facility] 2022-02-04 2022-02-04 Office Zander Howe 1.2.840.1 [id number] 10474 Univers 13:30:00 14:38:59 Visit 26499.1.1 ity of 3.104.2.7 [place] .3.974749 Medica l .[address] [place] 2022-02-04 2022-02-04 Travel 1.2.840.1 1.2.517.210 [id number] 6099 Univers 00:00:00 00:00:00 76888.1.1 350.1.13.10 ity of 3.104.2.7 4[place].3.698 [place] .3.101196 084.8 Medica l .[address] [place] 2022-01-14 2022-01-14 Outpatient R ZANDER HOWE [facility] [id number] Univers 14:45:00 14:45:00 ity [facility] 2021-12-31 2021-12-31 Outpatient ZANDER CONTRERAS [facility] [id number] Univers 15:45:00 15:45:00 ity [facility] 2021-12-17 2021-12-17 Outpatient ZANDER CONTRERAS [facility] [id number] [id number] Univers 14:30:00 14:30:[address] [facility] 2021-11-14 2021-11-15 Outpatient X [facility]AB[facility] [id number] Univers 17:45:00 18:29:[facility]14 2021-11-15 [facility] Nilo [facility] 1.2.8 40.114 [id number] Univers 17:45:00 18:29:00 Encounter Dotty [place] [facility] 350.1.13.10 ity [facility] [place].2.[place] [id number] [facility] [address] 2021-11-14 2021-11-15 Outpatient X RABIA [facility] MAYI [id number] Univers 17:45:00 18:29:00 DOTTY [facility] 2021-11-12 2021-11-12 Outpatient ZANDER CONTRERAS [facility] [id number] Univers 14:15:00 14:19:[address] [facility] 2021-11-12 2021-11-12 Office Zander Howe UNIVERSIT 1.2.840.114 [id number] Univers 14:15:00 14:19:16 Visit Y HEALTH 350.1.13.10 i ty of [facility] 4[place]7.2.[place] [id number] [facility] [address] 2021-11-12 2021-11-12 Outpatient ZANDER CONTRERAS [facility] [id number] Univers 14:15:00 14:19:[address] [facility] 2021-11-02 2021-11-02 Emergency X [facility] ERT [id number] Univers 14:12:00 17:29:[address] [facility] 2021-11-02 2021-11-02 Emergency Liudmila [facility] 1.2.779.413 [id number] Univers 14:12:00 17:29:00 Harvey BRIONES 350.1.13.10 i ty of [facility] 4.2.7.2.686 [facility] [id number] [facility] [address] 2021-09-22 2021-09-22 Imm/Inj Vaccine, [facility] B 1.2.840.114 [id number] Univers 12:00:25 12:10:25 Visit Thai Arita SPECIALTY 350.1.13.10 ity of [facility] 4.2.7.2.686 [facility] [id number] [place] del[place]ud [place] [address] [place] [address] 2021-09-22 2021-09-22 Office Negrito [facility] 1.2.840.114 [id number] Univers 10:00:00 10:30:00 Visit Tyrone NAJERA 350.1.13.10 ity of [facility] 4.2.7.2.686 [place] CENTER AT [phone] [place] stephanie DARION [address] [place] [address] 2021-09-22 2021-09-22 Outpatient Lisa MAHAN [facility] [id number] Univers 10:00:00 10:00:00 TYRONE itjared of [facility] 2021-09-22 2021-09-22 Orders Doctor MAHAN 1.2.840.114 [id number] Univers 00:00:00 00:00:00 Only UnassignedNAMRATA 350.1.13.10 ity of [place] 4.2.7.2.686 [place] as [id number] [address] 2021-06-19 2021-06-19 Orders Doctor MAHAN 1.2.840.114 [id number] Univers 00:00:00 00:00:00 Only UnassignedNAMRATA 350.1.13.10 ity of [place] 4.2.7.2.686 [place] as [id number] [address] 2021-05-25 2021-05-26 Emergency Janene Taylor [facility] 1.2.840.114 [id number] 18:28:00 00:07:00 Misa Briones 350.1.13.10 [place] 4.2.7.2.686 [place] [id number] 084 2021-05-25 2021-05-25 Emergency X Janene TAYLOR [facility] ERT [id number] Univers 18:28:00 18:28:00 ity [facility] 2020-12-19 2020-12-19 Orders Doctor NEGRITO 1.2.840.114 [id number] 00:00:00 00:00:00 Only UnassignedNAMRATA 350.1.13.10 [place] 4.2.7.2.686 [id number] 009 2020-11-28 2020-11-28 Patient Sharon Bunn 1.2.840.114 [id number] 00:00:00 00:00:00 Outreach Micki [place] 350.1.13.10 [place] 4.2.7.2.686 [id number] 403 2020-11-27 2020-11-27 Telephone Angie Aguilar 1.2.698.082 [id number] 00:00:00 00:00:00 Gianni Teresa 350.1.13.10 [facility] 4.2.7.2.686 [id number] 093 2020-10-10 2020-10-19 Inpatient U LEROY [facility] MAYI [id number] Univers 10:35:00 00:30:00 AMBAR [facility] 2020-10-06 2020-10-06 Outpatient BEE Garcia LABO [id number] [facility] 23:33:00 23:33:[address] 2020-10-04 2020-10-04 Emergency X JERSEY, RAJBatshevaKRISTIAN [facility] ERT 1 [id number] Univers 14:21:00 14:21:00 DA PUTNAM ity [facility] 2020-10-03 2020-10-03 Emergency X [facility] ERT [id number] Univers 21:22:00 21:22:00 ity [facility] 2020-10-02 2020-10-02 Emergency X [facility] ERT [id number] Univers 16:14:00 16:14:00 ity [facility] 2020-09-26 2020-10-02 Inpatient X DIONE [facility] MAYI [id number] Univers 09:58:00 14:26:[address] [facility] 2020-09-20 2020-09-20 Emergency X KERRY [facility] ERT [id number] Univers 13:37:00 13:37:00 IRAM itjared [facility] 2020-08-23 2020-08-23 Emergency X [facility] ERT [id number] Univers 17:57:00 17:57:00 [facility] 2020-05-02 2020-05-02 Emergency X [facility] ERT [id number] Univers 02:13:00 02:13:00 [facility] Results Test Description Test Time Test Comments Results Result Comments Source POCT GLUCOSE (AUTOMATED) 2022-07-20 17:02:07 Test Item Value Reference Range Interpretation Comme nts POCT GLU (test code = 5845266204) 92 mg/dL 70-110 Lab Interpretation (test code = 00319-6) Normal [facility] GLUCOSE (AUTOMATED)2022-07-20 13:05:47 Test Item Value Reference Range Interpretation Comments POCT GLU (test code = 4421834644) 93 mg/dL 70-110 Lab Interpretation (test code = Normal 55621-8) [facility] GLUCOSE (AUTOMATED)2022-07-20 04:43:03 Test Item Value Reference Range Interpretation Comments POCT GLU (test code = 7825090508) 86 mg/dL 70-110 Lab Interpretation (test code = Normal 92550-9) [facility] GLUCOSE (AUTOMATED)2022-07-20 00:59:10 Test Item Value Reference Range Interpretation Comments POCT GLU (test code = 8762374288) 82 mg/dL 70-110 Lab Interpretation (test code = Normal 76469-5) [facility] GLUCOSE (AUTOMATED)2022-07-19 22:05:07 Test Item Value Reference Range Interpretation Comments POCT GLU (test code = 8469133263) 92 mg/dL 70-110 Lab Interpretation (test code = Normal 99649-4) [facility] GLUCOSE (AUTOMATED)2022-07-19 17:04:37 Test Item Value Reference Range Interpretation Comments POCT GLU (test code = 1403758135) 82 mg/dL 70-110 Lab Interpretation (test code = Normal 74329-1) [facility] 15:57:55 Test Item Value Reference Range Interpretation Comments PHOSPHORUS (test code = 4516466093) 1.9 mg/dL 2.5-5 L Lab Interpretation (test code = Abnormal 84783-8) [facility] [id number] 14:58:38 Test Item Value Reference Range Interpretation [...] RDW-SD (test code = 50.6 fL 38.5-51.6 94099-2) RDW-CV (test code = 15.6 % 12.1-15.4 H 788-0) PLT (test code = See_Comment [Automated 777-3) message] The sy stem which generated this result transmitted reference range : 150 - 328 10*3/ ?L. The reference r alisson was not used to interpret this result as normal/abnormal . MPV (test code = 12.4 fL 9.8-13 10287-0) NRBC/100 WBC (test See_Comment [Automat ed code = 3378337527) message] The system which generated this result transmitted reference range : 0.0 - 10.0 /100 WBCs. The refer ence range was not u sed to interpret th is result as normal/abnormal . NRBC x10^3 (test code See_Comment [Auto mated = 1052872392) message] The s ystem which generated this result transmitted reference range : 10*3/?L. The reference range was not used to interpret this result as normal/abnormal . GRAN MAT (NEUT) % 51.4 % (test code = 770-8) IMM GRAN % (test code 0.30 % = 6578418809) LYMPH % (test code = 37.0 % 736-9) MONO % (test code = 9.4 % 5905-5) EOS % (test code = 1.6 % 713-8) BASO % (test code = 0.3 % 706-2) GRAN MAT x10^3(ANC) 1.96 10*3/uL 1.99-6.95 L (test code = 0276478256) IMM GRAN x10^3 (test 0-0.06 code = 5271513792) LYMPH x10^3 (test code 1.41 10*3/uL 1.09-3.23 = 731-0) MONO x10^3 (test code 0.36 10*3/uL 0.36-1.02 = 742-7) EOS x10^3 (test code = 0.06 10*3/uL 0.06-0.53 711-2) BASO x10^3 (test code 0.01-0.09 = 704-7) ELLIPTO/OVAL (test 2+ See_Comment A [Automat ed code = 15376-5) message] The system which generated this result transmitted reference range : (none). The reference range was not used to interpret this result as normal/abnormal . REACT LYMPHS (test Rare code = 8778759082) GIANT PLATELETS (test Present See_Comment A [Auto mated code = 5908-9) message] The system which generated this result transmitted reference range : (none). The reference range was not used to interpret this result as normal/abnormal . Lab Interpretation Abnormal (test code = 59401-0) [facility] GLUCOSE (AUTOMATED)2022-07-19 12:58:00 Test Item Value Reference Range Interpretation Comments POCT GLU (test code = 9161354054) 93 mg/dL 70-110 Lab Interpretation (test code = Normal 04476-0) [facility] (NA, K, CL, CO2, GLUCOSE, BUN, CREATININE, CA)2022-07-19 11:17:35 Test Item Value Reference Range Interpretation Comments NA (test code = 136 mmol/L 135-145 1408156368) K (test code = 4.6 mmol/L 3.5-5 9480874589) CL (test code = 104 mmol/L 98-108 0517425828) CO2 TOTAL (test code = 29 mmol/L 23-31 2999479318) AGAP (test code = 2-16 3124437860) BUN (test code = 10 mg/dL 7-23 5505374330) GLUCOSE (test code = 82 mg/dL 70-110 7120076549) CREATININE (test code = 0.34 mg/dL 0.6-1.25 L 1177987628) CALCIUM (test code = 7.4 mg/dL 8.6-10.6 L 2572068868) eGFR (test code = mL/min/1.73m2 8151377872) LU (test code = LU) Association of [...] tests). Lab Interpretation Abnormal (test code = 54011-1) [facility] GLUCOSE (AUTOMATED)2022-07-19 09:13:05 Test Item Value Reference Range Interpretation Comments POCT GLU (test code = 5552175107) 94 mg/dL 70-110 Lab Interpretation (test code = Normal 46662-0) [facility] GLUCOSE (AUTOMATED)2022-07-19 06:14:35 Test Item Value Reference Range Interpretation Comments POCT GLU (test code = 5320428760) 82 mg/dL 70-110 Lab Interpretation (test code = Normal 89839-0) [facility] GLUCOSE (AUTOMATED)2022-07-19 02:01:34 Test Item Value Reference Range Interpretation Comments POCT GLU (test code = 6351947727) 90 mg/dL 70-110 Lab Interpretation (test code = Normal 61638-4) [facility] GLUCOSE (AUTOMATED)2022-07-18 21:21:09 Test Item Value Reference Range Interpretation Comments POCT GLU (test code = 8526079055) 84 mg/dL 70-110 Lab Interpretation (test code = Normal 04007-0) [facility] GLUCOSE (AUTOMATED)2022-07-18 16:34:48 Test Item Value Reference Range Interpretation Comments POCT GLU (test code = 7246890093) 79 mg/dL 70-110 Lab Interpretation (test code = Normal 31048-4) [facility] GLUCOSE (AUTOMATED)2022-07-18 13:16:05 Test Item Value Reference Range Interpretation Comments POCT GLU (test code = 7993827380) 81 mg/dL 70-110 Lab Interpretation (test code = Normal 56608-0) [facility] METABOLIC PANEL (NA, K, CL, CO2, GLUCOSE, BUN, CREATININE, CA)2022-07-18 11:18:39 Test Item Value Reference Range Interpretation Comments NA (test code = 136 mmol/L 135-145 0239763796) K (test code = 4.2 mmol/L 3.5-5 5366601731) CL (test code = 106 mmol/L 98-108 6798438369) CO2 TOTAL (test code = 31 mmol/L 23-31 1414625104) AGAP (test code = 2-16 L 4562973002) BUN (test code = 6 mg/dL 7-23 L 4776968254) GLUCOSE (test code = 87 mg/dL 70-110 6188240439) CREATININE (test code = 0.39 mg/dL 0.6-1.25 L 6222049666) CALCIUM (test code = 7.3 mg/dL 8.6-10.6 L 0640658414) eGFR (test code = mL/min/1.73m2 3634481445) LU (test code = LU) Association of [...] tests). Lab Interpretation Abnormal (test code = 38132-9) [facility]04 Test Item Value Reference Range Interpretation Comments MAGNESIUM (test code = 3703893584) 1.5 mg/dL 1.7-2.4 L Lab Interpretation (test code = Abnormal 27719-2) [facility] 11:16:44 Test Item Value Reference Range Interpretation Comments PHOSPHORUS (test code = 1884663521) 1.8 mg/dL 2.5-5 L Lab Interpretation (test code = Abnormal 48301-6) [facility] GLUCOSE (AUTOMATED)2022-07-18 10:10:02 Test Item Value Reference Range Interpretation Comments POCT GLU (test code = 4730311354) 92 mg/dL 70-110 Lab Interpretation (test code = Normal 78233-8) [facility] GLUCOSE (AUTOMATED)2022-07-18 06:20:53 Test Item Value Reference Range Interpretation Comments POCT GLU (test code = 4944662651) 84 mg/dL 70-110 Lab Interpretation (test code = Normal 97226-1) [facility] GLUCOSE (AUTOMATED)2022-07-18 01:45:08 Test Item Value Reference Range Interpretation Comments POCT GLU (test code = 1625096000) 76 mg/dL 70-110 Lab Interpretation (test code = Normal 33690-3) [facility] GLUCOSE (AUTOMATED)2022-07-17 21:42:53 Test Item Value Reference Range Interpretation Comments POCT GLU (test code = 2007431975) 81 mg/dL 70-110 Lab Interpretation (test code = Normal 88414-8) [facility] GLUCOSE (AUTOMATED)2022-07-17 21:42:48 Test Item Value Reference Range Interpretation Comments POCT GLU (test code = 7494340256) 81 mg/dL 70-110 Lab Interpretation (test code = Normal 03738-2) [facility] GLUCOSE (AUTOMATED)2022-07-17 16:49:36 Test Item Value Reference Range Interpretation Comments POCT GLU (test code = 9580114446) 90 mg/dL 70-110 Lab Interpretation (test code = Normal 69458-4) [facility] GLUCOSE (AUTOMATED)2022-07-17 13:06:55 Test Item Value Reference Range Interpretation Comments POCT GLU (test code = 2065579143) 80 mg/dL 70-110 Lab Interpretation (test code = Normal 73104-1) [facility] GLUCOSE (AUTOMATED)2022-07-17 05:27:10 Test Item Value Reference Range Interpretation Comments POCT GLU (test code = 1827604902) 84 mg/dL 70-110 Lab Interpretation (test code = Normal 50123-9) [facility] GLUCOSE (AUTOMATED)2022-07-17 01:14:31 Test Item Value Reference Range Interpretation Comments POCT GLU (test code = 0769996519) 69 mg/dL 70-110 L Lab Interpretation (test code = Abnormal 99477-3) [facility] GLUCOSE (AUTOMATED)2022-07-16 21:38:28 Test Item Value Reference Range Interpretation Comments POCT GLU (test code = 2083923729) 74 mg/dL 70-110 Lab Interpretation (test code = Normal 00401-6) [facility] GLUCOSE (AUTOMATED)2022-07-16 16:43:07 Test Item Value Reference Range Interpretation Comments POCT GLU (test code = 4667725552) 86 mg/dL 70-110 Lab Interpretation (test code = Normal 35930-6) [facility] GLUCOSE (AUTOMATED)2022-07-16 09:36:35 Test Item Value Reference Range Interpretation Comments POCT GLU (test code = 0958711357) 81 mg/dL 70-110 Lab Interpretation (test code = Normal 95222-4) [facility] GLUCOSE (AUTOMATED)2022-07-16 05:25:22 Test Item Value Reference Range Interpretation Comments POCT GLU (test code = [id number]) 90 mg/dL 70-110 Lab Interpretation (test code = Normal 70269-7) [facility] GLUCOSE (AUTOMATED)2022-07-16 01:27:18 Test Item Value Reference Range Interpretation Comments POCT GLU (test code = [id number]) 90 mg/dL 70-110 Lab Interpretation (test code = Normal 99105-2) [facility] GLUCOSE (AUTOMATED)2022-07-15 22:50:24 Test Item Value Reference Range Interpretation Comments POCT GLU (test code = [id number]) 86 mg/dL 70-110 Lab Interpretation (test code = Normal 80264-0) [facility] GLUCOSE (AUTOMATED)2022-07-15 21:56:15 Test Item Value Reference Range Interpretation Comments POCT GLU (test code = [id number]) 83 mg/dL 70-110 Lab Interpretation (test code = Normal 00677-0) [facility] GLUCOSE (AUTOMATED)2022-07-15 17:34:16 Test Item Value Reference Range Interpretation Comments POCT GLU (test code = [id number]) 83 mg/dL 70-110 Lab Interpretation (test code = Normal 18487-6) [facility] GLUCOSE (AUTOMATED)2022-07-15 13:47:19 Test Item Value Reference Range Interpretation Comments POCT GLU (test code = [id number]) 78 mg/dL 70-110 Lab Interpretation (test code = Normal 84519-5) [facility] GLUCOSE (AUTOMATED)2022-07-15 05:06:41 Test Item Value Reference Range Interpretation Comments POCT GLU (test code = [id number]) 78 mg/dL 70-110 Lab Interpretation (test code = Normal 87250-4) [facility] GLUCOSE (AUTOMATED)2022-07-15 01:20:38 Test Item Value Reference Range Interpretation Comments POCT GLU (test code = [id number]) 89 mg/dL 70-110 Lab Interpretation (test code = Normal 47268-8) [facility] GLUCOSE (AUTOMATED)2022-07-14 21:10:53 Test Item Value Reference Range Interpretation Comments POCT GLU (test code = 3318024131) 88 mg/dL 70-110 Lab Interpretation (test code = Normal 95905-1) [facility] IRON BINDING [id number] 20:58:10 Test Item Value Reference Range Interpretation Comments TIBC (test code = 4465862088) 91 ug/dL 250-410 L Lab Interpretation (test code = Abnormal 67991-4) [facility] GLUCOSE (AUTOMATED)2022-07-14 16:20:20 Test Item Value Reference Range Interpretation Comments POCT GLU (test code = 3233733187) 79 mg/dL 70-110 Lab Interpretation (test code = Normal 04045-8) [facility] GLUCOSE (AUTOMATED)2022-07-14 12:47:35 Test Item Value Reference Range Interpretation Comments POCT GLU (test code = 5394259668) 70 mg/dL 70-110 Lab Interpretation (test code = Normal 33604-7) [facility] GLUCOSE (AUTOMATED)2022-07-14 09:08:20 Test Item Value Reference Range Interpretation Comments POCT GLU (test code = 4517352616) 100 mg/dL 70-110 Lab Interpretation (test code = Normal 09357-1) [facility] GLUCOSE (AUTOMATED)2022-07-13 22:29:45 Test Item Value Reference Range Interpretation Comments POCT GLU (test code = 1864891100) 90 mg/dL 70-110 Lab Interpretation (test code = Normal 98391-9) [id number] 21:45:17 Test Item Value Reference Range Interpretation Comments Case Report (test code Surgical Pathology ? ? = [id number]) ?Case: [id number] ? Authorizing Provider: ?German Bowling MD ? Collected: ? 07/11/2022 1528 ?Ordering Location: ? ? [facility] ? ? ?Received: ?07/11/2022 1829 ? [facility] ?Pathologist: ? Laila Ybarra MD PhD ?Specimen: ? ?SMALL INTESTINE, stitch distal ? Final Diagnosis (test e4lyvRVaNCBba0khPJAsdT code = 9731416728) FuZzEwMzNcZnRuYmpcdWMx IHtccnRmMVxlcGljMTAxMD YtAC4okQogtQt0bFirTAYy hlY2vZAaNPyxy7jeTOG7x6 kopgewQTNjZYupEk5lbJZb dUgpLeDnCYUqUVr4jR67BP KpyG8kcBKhAEa1LFUsnVOx uzOoFdZqPLPwmOEjxRV1XA DkAG3zbahcTZonWYzrFSNn ggC4ITMaiXBpO5WlKZHhVW 1lbbheURF9DZriDBKwFGV3 IlTwGVOja4Moozn6ZbIpxZ FyZFxwbGFpblxmczIwXHBh ciBBLiBTTUFMTCBJTlRFU1 CHGpVyOJJPH4TZKMpYJvfv eJLcCKDuUFTsDBCQZ18XIv LIGTTOI4GMMV0LCgYDRbSK NwyVYGExI7lMEBINDwPXD6 0EHwVDNYiPMv6PCvCPMY9L WFEXONNSBINSJ3oPZPOcXD BhciAgICAgICBTRUNPTkRB BslmIN3kMH7INZHBIPILPF XJIL1LLUHpukYoCPSwFRVW BUXKIKOvUFGWB9hHFzMWUr VQPIOYY7DML71lcPCbJIPq EWTjZJ5BSZPIY8KYNNUASN XWYwLCLYlQA71HJeVMWHlQ PSiNSF0IZPODTCKogDUbOO WvHLLeZYKZQaYMUM8ZU29r NHgIAPvcIa7LQRScUK7EY8 NMAHJLRCIQToERIHhRF40I TkNZXHBhclxwYXJcZnMyMi BKdWFuIENhcmxvcyBBbHZh dzS1DZ6exgWjqqbbEWJdBS klLaIvDiHxIsCsAro6GiYA LSyxOXPrPyHjYOosZHP6i3 xydGYxXHNzdGVjZjIyMDAw YPLae4ixYJRmaDGuZiGaAq NcZnRuYmpcdWMxXGRlZmYw t9acx058oEFpl4axMHDfLu I1aBOvGBTpxYjfkjf0qUbw KzZtSSDxl3iqwiGxJxMaSH UlWIMpUZAdvFOwT027JLAi JToac8gcj2AaWSBbxEEar3 E6YXFHQMasVaVkW953o9fh s6fmncIemTG2GBPvLWA7CM wdduFdeuJ1KWnwdEDjXcD1 IDtccmVkMFxncmVlbjBcYm p4CAPqV743HZR2nGupq5kj LSO0IUDmZDPkJtptTe5piV PbG658XNEqHMNJMFDtqZc4 KTDzppTmngExaQQRm288V6 35c7txVDQzxyVutBiBpcvo x8ycG677CHHjpHXidqIsTj RlMBYadSXkxRA4TTYdHN3k sewgKTyfPQgtRPVcjbJ5KR KqxTVlY8WvDKRcKF4aplnz QTZ6QZmaLEGwHZZ8XqYlYL Zfv7Wkxbt3EfTcax1cai91 SBV2u1SbxNsiGXA2XJA7Gp CoRj6zmGPzGHQfCJ1sJzYy gQPiCHNpcs10eSnrGUmmff KhbO9aDyUhIOAhhQMrKXEj YQ1akSSlNGLaxP4sqkuvLV BnYnJkcmhlYWRccGdicmRy Vi0gsFquJWF2XRgkX6eueM 3hXwW0DEltM9jfpR5tNTr3 TCfgjST7RJIunD1bCH5qly sod2esBGwuANarQEYueaL2 uzW1IBTugQEpL3LtjV5gOT MhUX8jpkhgo6foTPF7KGws GKVtQOW0BoGlQPIly9Xswz m2MbAwv9ZfnQLuRBimO57e q251HEJnohKeA2zrtCSmyi kveUXonpyfLDrkqcO9GHDm XHBsYWluXGYxXGZzMjBcbG FuZzEwMzNcaGljaFxmMVxk WqFkRGElZPgxO9rlAlBsN0 YyXGZzMjBccGFyIEkgaGF2 LWSzBGZen16ihVr7EZZboy kpu2NkGZLpiPNfoIApxL9q iuXnj5buTXUxJJYzTHOsM1 FvVCC4wTYhGRXqeJIyjUI5 RH1ortFoYE2rBDPaMoxdhj QwuTKrsaJtVCTyDVjoz3cn OZ6eXHImaDczjP1dvDN8PR Dmj0unxGFdrQCzd5nhv6Nb bmFtZShzKSBtYXkgYXBwZW NaMH5kLKNncIPznlDkm4S2 DtzbpEDgruvqHosgwnZ0OF ngstgjZNTjOHpgT4lxFlRu KOWciWpyDhslo2RgFITgOQ ZzMjhccGFyfX0= Clinical Information Small bowel (test code = obstruction 9515064919) Gross Description (test m0izqOVdOPSaiALDQSKnLC code = 0614465605) UyUF0ylAmxyAd7vNmsPIWr phN0uTYmLOaca7dlNQD7t3 llbiANClxkZWZmMVxwYXBl nbudZdT4ILexWQOvukxsRZ j7WBhlHELiaFL8SLJonRDl E0XwMIVvEA5sypv4VFJ2FN mwUVXnPeV2BBCuBnVoOars JPl9WVItnkL2Ott1DNKrIL RkgZDwo5Q3JDzzfptoNLMa hXPzC166MMd0IFJioH2zdD GqE6xeQJKgVZzzFKVuIOcg vFOlCWb8OUqqo1WuaSSnQF pccGFyZCANCntcKlxlcGlj m3EbxMOvRQzjRFJdHPKsLQ trmqcqMTi1BJVtQVkzbYFn ST7lvCjyCzsoiPcgk7ThjG BcXGlkIDUxMDAyIFxcZGIg HR7TIrRsZWG1OJL8DhQsAB q6WBf0PR7NJoMtISTjVLAe VzC5OOYvBXv4PDuyXM0OUV V6Udp9YDI4BBZyLGUdCcKj TXp2ZEZwTFrqVENdqDDsNC jfHxWjXWWxMFvoiDCsOY6i fVxwbGFpblxmczIwIFNQRU QSVCVSBLZkpPPqBR0NVHCv NPhwBOJrxYPLLMU5VD1gBF ANClxsdHJwYXJcbGluMFxy dF0nUH5TNQr3leMwYKEuVl KcL2PrC3zjRG3uTNUrxnKk VYXyqAUsSVIcolXbs5WdSZ mmvjgomCCuJHytBGA1bTUt VZItMJQmBZZxYR65R7Ikqk FtZSwgVUggbnVtYmVyLCBh bmQgZGVzaWduYXRlZFxjZj WsJMl3MFBgNRRsZfhva4Jy iZCyPQFdk5HrcRe6DYFlDZ UlEng4PZwjZOLyVCGgU51c ssIyw3Ykm36lfZmipE98AH Q1qN2mQUqxLI65WROuCZmk RVmblge1nRW2FOJsACYzbK EnttLfcLTuwL3aGYApgtNc TZShoEKviWEkZKG3JPTzQ7 tsDQ9kMWZbBJZddmdiugHr VZP8rPHyDPAtw9C2mHIkST U3RORxIXMhxNW4REywNR2y AbLJuRVjLBQcziLcULA8fS SiWKUlrxSuVE46AB1uYFFx ETUlr8xtlZY6DOszJWNlLY AirFQfvr4aINTrBWNqtYU6 NOskhXHyT7peKQXgVZU9nW IhGFJwoiJmQLGsxZ7pSFTw MU5eRYQigw55rHb2DODmve SpGX5rELKsn3RbBVzwpEgo pXCew3BbiADpNvMqPG3gJL EmNAHrh34gdCxmYXEih5pu zKYwYJBfTC7nZKmmTEOdVG IfzEKeWMkjFE0sNZ1mYNS2 oqXjUXMiOAoetJ3wawAkDm UkvYHpm3WdUM6wBMbzjM4d huffA9JuE36feqCnrO4lIV kzLzL4omWfWPNrLW9nCBKe XXAvFKV0eMGphiXsGMlrwz EhUIRqps5qWQenNV9gw2Fy dGVyeSBpcyBwYWxwYXRlZC Ljq7XwdWhsREBee6ThIqzi EEe9hTAnJG1sSGNqO3IwDU zwGGZhwr3cQ0ZgMCIqkPEh nC0eqTltVZFgutUedV5joe XyjfXjEMMgXXguKK21OD1i YVVzd6HnRGvnKfBwY09nnJ 4ogBWyG7HtRZlnZi3vYPLa SNOfFR5nrYTtZLGvePFeeO PwUAE8UX9oAOLeznNtEH5u AR4bFR1iDIJsfFaqEE76dD RvKELxCP8jDmTmyvAfWP89 NHXocnAse1AvcVhemfJxOJ YxAPP2Lx0emCOtJXGdxrCU IG7YXs5dnCLsPP0UASRdik BIWjAdLgTHFCYnH9leATDy bWFsbCBmcmFnbWVudCBvZi Iup6ibhCsrx2SdyPocNPXt QERbqV3iQSVbnGeaFJy2ES BhciANCkEyLUEzOiBMYXJn QXGxPXqeXL43NA4oDBXna9 KiIKIjyg56yU1zjJCoXQWg kI7yQIWwqDakRXy6TALakp XLPwN8UaSAKTZlAPSyBOxh QD53TT5wBRQbv6PaVELdwC B2QLjrxEMrE4wiWBWzukRj cmVseVxwYXIgDQpBNTogU2 HzeDxnpsUyeUG9kQBpo6Q3 dXJlZCBhcmVhIDQuMCBjbS Gano3lYMDqw4CizLUnJNWm fS5jsZFbTR2EWWP4DSBsB0 Ipr60nw1OvbZBvUTdyeXAu AYKcQBZno9NjFp81AEejf3 AylRNwSdDpFZ3gMFQhUYFw r79sdOloTIKje3ctgBOkLH NbRNceSDUkWKhQDbdpIV3q bdFraPVfAIIus3qxuEZ9MN kbAJCizkUPTcE2HzEKd59u bTtivZglmm4yOLKeXD4uqB TglJFePNR8uY3iWKemBZZk CXpfuYAkFW2TNCNjHOJLdS llZXNoYSBXaWxoZWxtLCBN RCANClxlcGljTmVzdERvYz MxotA0JKHavGPxWHV6AU7z ESTfzmtpNOWhZWCpAAA1KT ymcO94iBGaOCLjEGXopYQx uEzsoIAmzdXFUmdznO6fCr Kxt6lzlXu5NMNBWxeirRNs qykuauO7EMZfm0bqlZzak6 CfnNLoMC1rjAsqeR9qDuXm NiANCn0= Disclaimer (test code = o3ienMLoRVXvq5lgILDtuU [id number]) FuZzEwMzNcZnRuYmpcdWMx UFdnqfReQRahl1AvG5GnVp AwMFxhbnNpXGRlZmxhbmcx OCObRQV8eyQmAGJoGCjrRD IuLIxsCj2ygRLceUpjKkJm HUJak6qczfNOLDvxAkOuJ0 72QGXaEXnkv1cse8ZjIXZz zCLke3S0FWSIrswouKb2hL ciY30mo0O4NqdiI2hjPRNu TKNaM9XnUU7uDTGwAkm4VR R6NJR6AXJsYPXaG8DxAJ5r OCHdjJUgHAq2g9jufLhjSN WwQER3q2wnVNjajxZwPN5m zd3ojLs1y3ptlfVnWHOyCE HokOWEZRPoK5CiaEgaAp7h lFx4aUbmEpdpSGU9Zxk6CE 9jvd23fok4sIfzZXIguojz AtL7JYyeKIAkwarmFAi5YC beCTYauNJ5ROWnhZJnF3Cu PUAlHS0qhpo5ADW8IWhlGX BlTfA8VCNovABvNZSklFpq GIqcg849AHZ0QhKyUQ2iO7 Crf6F5sB8cjVSePHGvuJKx EuArGRYyog3ycKJnPOtes5 XoWAD5gzP0vXOkuQQpTQZz DA96Sahzv2OdLtjly5QmH2 4miMF9AYhhm6rfOO2jKiH8 uhXlMKonb4lxkI3aAuN8FI zhOM5qMG8tFDEuaU1xbwwc XHBnYnJkcmhlYWRccGdicm RtVn9goOacRHL4ORjmW6fs bJ6qTcF8TXjgO1pzsA0pAT x2RCaqeOW9MIRmlM5uGK7s tontt8yeZFzyTPgwQUPipr Y6piL9KXUzmVPsR3JqfD4d GMAwXF4ojgqgn0mfGGL7BZ wxBBDqBSQ2NgVuNAYcn5Ox ksb0LrVnd4PlwHJoWKwdX4 5ty863XTOpdcKtE4rksVWv zbgmqFAoyuwrHSnofnM5UP ZnuqBcd8DhLLMfYEL0VAaq SQcdwYDdSAUpbFmif2xxW4 RscGFyXHBsYWluXGYxXGZz MjBcbGFuZzEwMzNcaGljaF jcYJtcByMrLCXpIYvwI0im DrRuF1XsXIDgVvGmbEPnT5 ggVGhpcyByZXBvcnQgbWF5 DMmlW2m5HDPlokYyuAh1us YvDpMsAXSzYUW0EIyrbWYt IEKlg8NoqcushUYaHr9cbS FuZALioR3eKLKjPHFlOBlk NB5rxRm1WKPCdKYgbOKoGr KZSZYnIK33ffLyHJWKbohp j6P3KGmyMHMvw4QnjRFkE9 cti4IrBTHsi15uQG2nf9X2 a6toCOA0JN4nj9FeVVWkiL VmbZRfULHdr6Eyhmeup7Qf ILWyxxUsq6TdMIGdddGweZ LiLHBhvoDmah9rmhIhDCDk KQXhB0IfxurrdRtpilVrAT Krjg7ardBxEQN0QUAMTRLv JBTho6JcbD3ipBSSJXZ2hL Ujzx1bzsIMzFVkPGLdld57 WFGgAJ7lA4svPBGtLKPosz BkxAPcw7UxCWMaoYP1xNSf VF2ZQkVEb95oOFLdWWUTjs NlIIOiwUfskGC6pfL4vP6b IChGREEpLlx+IFRoZSBGRE DeKG4flzMwc9PlpbIwgCsx FHJplNLyh6DqvARdo6NxhB kmn1YcgKLfsAJrBP4mZICl clxwYXIgVVRNQiBMYWJvcm C8s3DlTDVfDLNpQDF8iFfx liy0UNStrH2lKITpI4pzgj jpPXxvWZGed5HrsT7cyDTC nZOul7SknWOyyUJArQXlRN 3agfMeYFdJDOlUDLW3pbUz GJZiv1OyORdiP1reI68rjT rxsJl6hFF8CMH4cP3lBvr+ IFxwYXJccGFyIEFwcHJvcH AkQZJgkTvdyvOhX3JbqmLr gY3yeJKiydPsKO0sIC2hB9 C0uEUdOVStrlImc4svZGzk dmUgYmVlbiByZXZpZXdlZC Gaa9JbUVkkYPI6OFkzufOm bmNsdWRpbmcgSCZFLCBTcG SodAIqPZL0EJyytxZtfeLu UM8oxT2hhVpjeN9snPGlgD Q4vypxOIYoVRGuvTekRYTd ND9ktNIdOLNxrsZJgEkaaI PscF4aU2TkWGLoYMJjbd4t ISTzpK9bREpak3XwrzntPA QlZKElCJQeadKwpb8iAQJv lLXGMP7UAVokoNZem2Csne JcD0kAZJH6ERKoUnDrCljx TENovWCcqFSrGBIvxh29GT TbpT6doZbxYSEmpZ6vbH1d dZmkqS9kIkWoDzFiHVidQS 5kBFWrH9itlUTgMNRmMHXt W9jnAqIuwS8yaLbnUApdVl QtXuXdHMdvTGX4gA== Embedded Images (test code = 9338951502) [facility] 21:03:47 Test Item Value Reference Range Interpretation Comments POCT GLU (test code = 7718919732) 57 mg/dL 70-110 L Lab Interpretation (test code = Abnormal 46217-7) [facility] 16:38:36 Test Item Value Reference Range Interpretation Comments PALB (test code = 97349-3) 4.1 mg/dL 18-45 L Lab Interpretation (test code = Abnormal 53711-9) [facility] GLUCOSE (AUTOMATED)2022-07-13 15:52:08 Test Item Value Reference Range Interpretation Comments POCT GLU (test code = 6370000731) 167 mg/dL 70-110 H Lab Interpretation (test code = Abnormal 12783-2) [facility] GLUCOSE (AUTOMATED)2022-07-13 15:18:37 Test Item Value Reference Range Interpretation Comments POCT GLU (test code = 2123544230) 160 mg/dL 70-110 H Lab Interpretation (test code = Abnormal 20204-9) [facility] WITH [id number] 15:11:15 Test Item Value Reference Range Interpretation Comments WBC (test code = See_Comment [Automated message] 6690-2) The system [employer] generated this result transmitted ref erence range: 4.20 - 1 0.70 10*3/?L. The reference range was not used to int erpret this result as normal/abnormal . RBC (test code = See_Comment L [Automated message] 789-8) The system [employer] generated this result transmitted ref erence range: [...] (test code = 56.9 fL 38.5-51.6 H 08706-7) RDW-CV (test code = 17.2 % 12.1-15.4 H 788-0) PLT (test code = See_Comment [Automated message] 777-3) The system [employer] generated this result transmitted ref erence range: 150 - 32 8 10*3/?L. The reference range was not used to int erpret this result as normal/abnormal . MPV (test code = 11.3 fL 9.8-13 87924-3) NRBC/100 WBC (test See_Comment [Automat ed message] code = 2472779676) The syste m which generated this result transmitted ref erence range: 0.0 - 10 .0 /100 WBCs. The reference range was not used to int erpret this result as normal/abnormal . NRBC x10^3 (test See_Comment [Automated message] code = 3334012376) The syste m which generated this result transmitted ref erence range: 10*3/?L. The reference range was not used to int erpret this result as normal/abnormal . GRAN MAT (NEUT) % 75.1 % (test code = 770-8) IMM GRAN % (test 0.40 % code = 6757039999) LYMPH % (test code = 18.0 % 736-9) MONO % (test code = 5.1 % 5905-5) EOS % (test code = 1.3 % 713-8) BASO % (test code = 0.1 % 706-2) GRAN MAT x10^3(ANC) 5.26 10*3/uL 1.99-6.95 (test code = 9541469901) IMM GRAN x10^3 (test 0.03 10*3/uL 0-0.06 code = 9371373090) LYMPH x10^3 (test 1.26 10*3/uL 1.09-3.23 code = 731-0) MONO x10^3 (test 0.36 10*3/uL 0.36-1.02 code = 742-7) EOS x10^3 (test code 0.09 10*3/uL 0.06-0.53 = 711-2) BASO x10^3 (test 0.01-0.09 code = 704-7) ELLIPTO/OVAL (test 2+ See_Comment A [Automat ed message] code = 56790-0) [facility] result transmitted ref erence range: (none). The reference range was not used to int erpret this result as normal/abnormal . HGB C CRYSTALS (test Suggestive of Red bl ood cell code = 9370659382) morpholog y suggestive of Hemoglobin C crystals. Hemog lobin electrophoresis recommended for confirmation. SCHISTOCYTES (test 1+ A code = 800-3) TARGET CELLS (test 2+ See_Comment A [Automat ed message] code = 28344-2) The system [employer] generated this result transmitted ref erence range: (none). The reference range was not used to int erpret this result as normal/abnormal . BANDS (test code = Increased A 5388707052) DOHLE BODIES (test Present A code = 7792-5) Lab Interpretation Abnormal (test code = 56671-9) [facility] GLUCOSE (AUTOMATED)2022-07-13 15:03:40 Test Item Value Reference Range Interpretation Comments POCT GLU (test code = 2315432243) 34 mg/dL 70-110 LL Lab Interpretation (test code = Abnormal 51105-1) [facility] METABOLIC PANEL (NA, K, CL, CO2, GLUCOSE, BUN, CREATININE, CA)2022-07-13 14:55:02 Test Item Value Reference Range Interpretation Comments NA (test code = 151 mmol/L 135-145 H 6179277861) K (test code = 3.0 mmol/L 3.5-5 L 1226315104) CL (test code = 120 mmol/L 98-108 H 2659478923) CO2 TOTAL (test code = 26 mmol/L 23-31 0115763162) AGAP (test code = 2-16 0556074437) BUN (test code = 17 mg/dL 7-23 7524159698) GLUCOSE (test code = 34 mg/dL 70-110 LL 8742132236) CREATININE (test code = 0.76 mg/dL 0.6-1.25 2644505590) CALCIUM (test code = 7.8 mg/dL 8.6-10.6 L 4729818780) eGFR (test code = mL/min/1.73m2 0893036765) LU (test code = LU) Association of [...] tests). Lab Interpretation Abnormal (test code = 88056-7) [facility] 14:49:59 Test Item Value Reference Range Interpretation Comments MAGNESIUM (test code = 4524536706) 2.1 mg/dL 1.7-2.4 Lab Interpretation (test code = Normal 76204-3) [facility] 14:49:59 Test Item Value Reference Range Interpretation Comments PHOSPHORUS (test code = 9013413645) 2.7 mg/dL 2.5-5 Lab Interpretation (test code = Normal 20109-1) [facility] 22:45:16 Test Item Value Reference Range Interpretation Comments PALB (test code = 65519-8) 5.1 mg/dL 18-45 L Lab Interpretation (test code = Abnormal 00289-0) [facility] + Lactic [id number] 20:56:10 Test Item Value Reference Range Interpretation Comments PH (test code = 2) 7.35-7.45 L PCO2 (test code = See_Comment H [Automate d 9281319213) message] The sy stem which generated this result transmitted reference range : 35 - 45 mmHg. The reference range was not used to interpret this result as normal/abnormal . PO2 (test code = See_Comment H [Automated 6652588943) message] The sy stem which generated this result transmitted reference range : 80 - 100 mmHg. The reference range was not used to interpret this result as normal/abnormal . HCO3 (test code = See_Comment [Automate d 4496299633) message] The sy stem which generated this result transmitted reference range : 22 - 26 mEq/L. The reference range was not used to interpret this result as normal/abnormal . BE (test code = See_Comment L [Automated 4176934209) message] The sy stem which generated this result transmitted reference range : -3.0 - 3.0 mEq/ L. The reference r alisson was not used to interpret this result as normal/abnormal . THB (test code = 8.0 g/dL 13.5-18 LL 5466889880) %O2HB (test code = 96.3 % 94-99 1108766274) %COHB ART (test code = 0.5 % 0-1.5 2177769039) %METHB ART (test code = 0.3 % 0.4-1.5 L 1544761926) VOL%O2 ART (test code = 11.1 % 15-23 L 3802654166) NA (test code = 145 mmol/L 135-145 6011478895) K+ (test code = 3.6 mmol/L 3.5-5 5181877077) AC CA IONZ (test code = 5.30 mg/dL 4.5-5.3 3163384451) GLUCOSE (test code = 163 mg/dL 70-110 H 5640656077) LACTIC ACID (test code 0.49 mmol/L 0.5-2.2 L = 1408990025) Lab Interpretation Abnormal (test code = 54711-7) [facility] Lactic [id number] 20:56:10 Test Item Value Reference Range Interpretation Comments PH (test code = 2) 7.35-7.45 L PCO2 (test code = See_Comment H [Automate d 3526102664) message] The sy stem which generated this result transmitted reference range : 35 - 45 mmHg. The reference range was not used to interpret this result as normal/abnormal . PO2 (test code = See_Comment H [Automated 3933635119) message] The sy stem which generated this result transmitted reference range : 80 - 100 mmHg. The reference range was not used to interpret this result as normal/abnormal . HCO3 (test code = See_Comment [Automate d 3819402295) message] The sy stem which generated this result transmitted reference range : 22 - 26 mEq/L. The reference range was not used to interpret this result as normal/abnormal . BE (test code = See_Comment L [Automated 7879587290) message] The sy stem which generated this result transmitted reference range : -3.0 - 3.0 mEq/ L. The reference r alisson was not used to interpret this result as normal/abnormal . THB (test code = 8.0 g/dL 13.5-18 LL 2108270690) %O2HB (test code = 96.3 % 94-99 6820006512) %COHB ART (test code = 0.5 % 0-1.5 0608939753) %METHB ART (test code = 0.3 % 0.4-1.5 L 2135887194) VOL%O2 ART (test code = 11.1 % 15-23 L 3162600862) NA (test code = 145 mmol/L 135-145 5480331948) K+ (test code = 3.6 mmol/L 3.5-5 6171869769) AC CA IONZ (test code = 5.30 mg/dL 4.5-5.3 7334609769) GLUCOSE (test code = 163 mg/dL 70-110 H 6475344202) LACTIC ACID (test code 0.49 mmol/L 0.5-2.2 L = 2898219638) Lab Interpretation Abnormal (test code = 59043-8) [facility] [id number] 16:12:23 Test Item Value Reference Range Interpretation Comments LACTIC ACID (test code = 1.23 mmol/L 0.5-2.2 6024851349) Lab Interpretation (test code = Normal 53490-5) [facility] [id number] 16:12:23 Test Item Value Reference Range Interpretation Comments LACTIC ACID (test code = 1.23 mmol/L 0.5-2.2 7042271159) Lab Interpretation (test code = Normal 32709-6) [facility]. METABOLIC PANEL ([id number])2022-07-10 00:41:51 Test Item Value Reference Range Interpretation Comments NA (test code = 137 mmol/L 135-145 1074893388) K (test code = 2.6 mmol/L 3.5-5 LL 3889489835) CL (test code = 93 mmol/L 98-108 L 0647962603) CO2 TOTAL (test code = 31 mmol/L 23-31 1870480331) AGAP (test code = 2-16 3296923573) BUN (test code = 28 mg/dL 7-23 H 4287108787) GLUCOSE (test code = 140 mg/dL 70-110 H 7243189639) CREATININE (test code = 2.04 mg/dL 0.6-1.25 H 6634568835) TOTAL BILI (test code = 0.6 mg/dL 0.1-1.0 6211845628) CALCIUM (test code = 7.6 mg/dL 8.6-10.6 L 1536854754) T PROTEIN (test code = 7.3 g/dL 6.3-8.2 1440916979) ALBUMIN (test code = 3.2 g/dL 3.5-5 L 5548393057) ALK PHOS (test code = 146 U/L 34-122 H 2551243431) ALTv (test code = 13 U/L 5-50 1742-6) AST(SGOT) (test code = 17 U/L 13-40 0835716883) eGFR (test code = mL/min/1.73m2 9109099128) LU (test code = LU) Association of [...] tests). Lab Interpretation Abnormal (test code = 57916-1) [facility]. METABOLIC PANEL (05153)2022-07-10 00:41:51 Test Item Value Reference Range Interpretation Comments NA (test code = 137 mmol/L 135-145 6723611703) K (test code = 2.6 mmol/L 3.5-5 LL 9574677948) CL (test code = 93 mmol/L 98-108 L 1870732453) CO2 TOTAL (test code = 31 mmol/L 23-31 4657409611) AGAP (test code = 2-16 8109506655) BUN (test code = 28 mg/dL 7-23 H 7911346789) GLUCOSE (test code = 140 mg/dL 70-110 H 4411969185) CREATININE (test code = 2.04 mg/dL 0.6-1.25 H 9118061756) TOTAL BILI (test code = 0.6 mg/dL 0.1-1.1 3984295354) CALCIUM (test code = 7.6 mg/dL 8.6-10.6 L 4303196420) T PROTEIN (test code = 7.3 g/dL 6.3-8.2 3957380263) ALBUMIN (test code = 3.2 g/dL 3.5-5 L 9810446240) ALK PHOS (test code = 146 U/L 34-122 H 4017649868) ALTv (test code = 13 U/L 5-50 1742-6) AST(SGOT) (test code = 17 U/L 13-40 5520022529) eGFR (test code = mL/min/1.73m2 2215064866) LU (test code = LU) Association of [...] tests). Lab Interpretation Abnormal (test code = 61399-8) [facility] Test Item Value Reference Range Interpretation Comments MAGNESIUM (test code = 3408398834) 2.3 mg/dL 1.7-2.4 Lab Interpretation (test code = Normal 15083-6) [facility]2022-09-17 00:33:02 Test Item Value Reference Range Interpretation Comments MAGNESIUM (test code = 1837629804) 2.3 mg/dL 1.7-2.4 Lab Interpretation (test code = Normal 77315-2) [facility]22 Test Item Value Reference Range Interpretation Comments LIPASE (test code = 2039245153) 18 U/L 0-220 Lab Interpretation (test code = Normal 07069-9) [facility]:32:22 Test Item Value Reference Range Interpretation Comments LIPASE (test code = 4982203970) 18 U/L 0-220 Lab Interpretation (test code = Normal 10781-2) [facility] [id number] 00:18:00 Test Item Value Reference Range Interpretation [...] RDW-SD (test code = 47.0 fL 38.5-51.6 11509-9) RDW-CV (test code = 15.4 % 12.1-15.4 788-0) PLT (test code = See_Comment H [Automated 777-3) message] The system which generated this result transmit annette reference range : 150 - 328 10*3/ ?L. The reference range was not u sed to interpret th is result as normal/abnormal . MPV (test code = 10.7 fL 9.8-13 55146-1) NRBC/100 WBC (test See_Comment [Automat ed code = 3509624383) message] The system which generated this result transmit annette reference range : 0.0 - 10.0 /100 WBCs. The reference range was not used to interpret this result as normal/abnormal . NRBC x10^3 (test code See_Comment [Auto mated = 8478300067) message] The system which generated this result transmit annette reference range : 10*3/?L. The reference range was not used to interpret this result as normal/abnormal . GRAN MAT (NEUT) % 83.3 % (test code = 770-8) IMM GRAN % (test code 0.50 % = 4628191248) LYMPH % (test code = 10.1 % 736-9) MONO % (test code = 5.9 % 5905-5) EOS % (test code = 0.0 % 713-8) BASO % (test code = 0.2 % 706-2) GRAN MAT x10^3(ANC) 10.78 10*3/uL 1.99-6.95 H (test code = 4875219557) IMM GRAN x10^3 (test 0.06 10*3/uL 0-0.06 code = 3486723763) LYMPH x10^3 (test code 1.31 10*3/uL 1.09-3.23 = 731-0) MONO x10^3 (test code 0.76 10*3/uL 0.36-1.02 = 742-7) EOS x10^3 (test code = 0.06-0.53 L 711-2) BASO x10^3 (test code 0.01-0.09 = 704-7) Lab Interpretation Abnormal (test code = 78674-3) [facility] WITH [id number] 00:18:00 Test Item Value Reference Range Interpretation Comments WBC (test code = See_Comment H [Automated 5090-2) message] The system which generated this result transmit annette reference range : 4.20 - 10.70 10*3/?L. The reference range was not used to interpret this result as normal/abnormal . RBC (test code = See_Comment [Automated 829-8) message] The system which generated this result [...] RDW-SD (test code = 47.0 fL 38.5-51.6 31918-3) RDW-CV (test code = 15.4 % 12.1-15.4 788-0) PLT (test code = See_Comment H [Automated 777-3) message] The system which generated this result transmit annette reference range : 150 - 328 10*3/ ?L. The reference range was not u sed to interpret th is result as normal/abnormal . MPV (test code = 10.7 fL 9.8-13 40926-0) NRBC/100 WBC (test See_Comment [Automat ed code = 0305730720) message] The system which generated this result transmit annette reference range : 0.0 - 10.0 /100 WBCs. The reference range was not used to interpret this result as normal/abnormal . NRBC x10^3 (test code See_Comment [Auto mated = 7833071965) message] The system which generated this result transmit annette reference range : 10*3/?L. The reference range was not used to interpret this result as normal/abnormal . GRAN MAT (NEUT) % 83.3 % (test code = 770-8) IMM GRAN % (test code 0.50 % = 0148279303) LYMPH % (test code = 10.1 % 736-9) MONO % (test code = 5.9 % 5905-5) EOS % (test code = 0.0 % 713-8) BASO % (test code = 0.2 % 706-2) GRAN MAT x10^3(ANC) 10.78 10*3/uL 1.99-6.95 H (test code = 9476284607) IMM GRAN x10^3 (test 0.06 10*3/uL 0-0.06 code = 5531162475) LYMPH x10^3 (test code 1.31 10*3/uL 1.09-3.23 = 731-0) MONO x10^3 (test code 0.76 10*3/uL 0.36-1.02 = 742-7) EOS x10^3 (test code = 0.06-0.53 L 711-2) BASO x10^3 (test code 0.01-0.09 = 704-7) Lab Interpretation Abnormal (test code = 51949-6) [facility][id number][facility]-27 01:04:32 Test Item Value Reference Range Interpretation Comments NA (test code = 135 mmol/L 135-145 0285219733) K (test code = 2.3 mmol/L 3.5-5 LL 3672704248) CL (test code = 102 mmol/L 98-108 9177332556) CO2 TOTAL (test code = 21 mmol/L 23-31 L 0917818467) AGAP (test code = 2-16 1693035522) BUN (test code = 5 mg/dL 7-23 L 0310895128) GLUCOSE (test code = 142 mg/dL 70-110 H 3428774083) CREATININE (test code = 0.68 mg/dL 0.6-1.25 7161154633) TOTAL BILI (test code = 0.6 mg/dL 0.1-1.7 9359292516) CALCIUM (test code = 7.9 mg/dL 8.6-10.6 L 4654045845) T PROTEIN (test code = 7.3 g/dL 6.3-8.2 5943466753) ALBUMIN (test code = 3.2 g/dL 3.5-5 L 6826168299) ALK PHOS (test code = 100 U/L 34-122 9693123807) ALTv (test code = 13 U/L 5-50 1742-6) AST(SGOT) (test code = 17 U/L 13-40 8486978998) eGFR (test code = mL/min/1.73m2 2247744328) LU (test code = LU) Association of [...] tests). Lab Interpretation Abnormal (test code = 66157-6) [facility] WITH [id number] 00:45:16 Test Item Value Reference Range Interpretation Comments WBC (test code = See_Comment [Automated 9790-2) message] The sy stem which generated this result transmitted reference range : 4.20 - 10.70 10*3/?L. The reference range was not used to interpret this result as normal/abnormal . RBC (test code = See_Comment L [Automated 389-8) message] The sy stem which generated this [...] RDW-SD (test code = 49.6 fL 38.5-51.6 39587-7) RDW-CV (test code = 15.1 % 12.1-15.4 788-0) PLT (test code = See_Comment [Automated 777-3) message] The sy stem which generated this result transmitted reference range : 150 - 328 10*3/ ?L. The reference r alisson was not used to interpret this result as normal/abnormal . MPV (test code = 11.2 fL 9.8-13 10591-5) NRBC/100 WBC (test See_Comment [Automat ed code = 1520322665) message] The system which generated this result transmitted reference range : 0.0 - 10.0 /100 WBCs. The refer ence range was not u sed to interpret th is result as normal/abnormal . NRBC x10^3 (test code See_Comment [Auto mated = 6110694481) message] The s ystem which generated this result transmitted reference range : 10*3/?L. The reference range was not used to interpret this result as normal/abnormal . GRAN MAT (NEUT) % 72.3 % (test code = 770-8) IMM GRAN % (test code 0.20 % = 4096075179) LYMPH % (test code = 19.9 % 736-9) MONO % (test code = 6.3 % 5905-5) EOS % (test code = 1.0 % 713-8) BASO % (test code = 0.3 % 706-2) GRAN MAT x10^3(ANC) 6.43 10*3/uL 1.99-6.95 (test code = 6529279483) IMM GRAN x10^3 (test 0-0.06 code = 7970776792) LYMPH x10^3 (test code 1.77 10*3/uL 1.09-3.23 = 731-0) MONO x10^3 (test code 0.56 10*3/uL 0.36-1.02 = 742-7) EOS x10^3 (test code = 0.09 10*3/uL 0.06-0.53 711-2) BASO x10^3 (test code 0.03 10*3/uL 0.01-0.09 = 704-7) Lab Interpretation Abnormal (test code = 58566-7) [facility] METABOLIC PANEL (NA, K, CL, CO2, GLUCOSE, BUN, CREATININE, CA)2022-04-29 10:41:04 Test Item Value Reference Range Interpretation Comments NA (test code = 141 mmol/L 135-145 8664245419) K (test code = 4.1 mmol/L 3.5-5 1559386826) CL (test code = 113 mmol/L 98-108 H 9190643513) CO2 TOTAL (test code = 26 mmol/L 23-31 5774749746) AGAP (test code = 2-16 2420668976) BUN (test code = 2 mg/dL 7-23 L 7764238739) GLUCOSE (test code = 77 mg/dL 70-110 6315293795) CREATININE (test code = 0.43 mg/dL 0.6-1.25 L 9119676318) CALCIUM (test code = 7.5 mg/dL 8.6-10.6 L 1485954181) eGFR (test code = mL/min/1.73m2 4408659468) LU (test code = LU) Association of [...] tests). Lab Interpretation Abnormal (test code = 58461-5) [facility] METABOLIC PANEL (NA, K, CL, CO2, GLUCOSE, BUN, CREATININE, CA)2022-04-29 10:41:04 Test Item Value Reference Range Interpretation Comments NA (test code = 141 mmol/L 135-145 7896362393) K (test code = 4.1 mmol/L 3.5-5.0 5841074275) CL (test code = 113 mmol/L 98-108 H 1845200116) CO2 TOTAL (test code = 26 mmol/L 23-31 1089328718) AGAP (test code = 2-16 0236357246) BUN (test code = 2 mg/dL 7-23 L 6566973832) GLUCOSE (test code = 77 mg/dL 70-110 0139231392) CREATININE (test code = 0.43 mg/dL 0.60-1.25 L 3181964166) CALCIUM (test code = 7.5 mg/dL 8.6-10.6 L 4095973540) eGFR (test code = mL/min/1.73m2 9252631818) LU (test code = LU) Association of [...] tests). Lab Interpretation Abnormal (test code = 60931-6) [facility] Test Item Value Reference Range Interpretation Comments MAGNESIUM (test code = 9386777616) 1.7 mg/dL 1.7-2.4 Lab Interpretation (test code = Normal 11324-2) [facility] Test Item Value Reference Range Interpretation Comments MAGNESIUM (test code = 6264886344) 1.7 mg/dL 1.7-2.4 Lab Interpretation (test code = Normal 87034-2) [facility] (NA, K, CL, CO2, GLUCOSE, BUN, CREATININE, CA)2022-04-28 17:52:13 Test Item Value Reference Range Interpretation Comments NA (test code = 142 mmol/L 135-145 6072207554) K (test code = 2.6 mmol/L 3.5-5 LL 3098389169) CL (test code = 109 mmol/L 98-108 H 5295879966) CO2 TOTAL (test code = 26 mmol/L 23-31 2145389629) AGAP (test code = 2-16 9065316271) BUN (test code = 3 mg/dL 7-23 L 3977837952) GLUCOSE (test code = 95 mg/dL 70-110 7643442890) CREATININE (test code = 0.57 mg/dL 0.6-1.25 L 5009905626) CALCIUM (test code = 7.6 mg/dL 8.6-10.6 L 0186914528) eGFR (test code = mL/min/1.73m2 4809626483) LU (test code = LU) Association of [...] tests). Lab Interpretation Abnormal (test code = 03484-3) [facility] METABOLIC PANEL (NA, K, CL, CO2, GLUCOSE, BUN, CREATININE, CA)2022-04-28 17:52:13 Test Item Value Reference Range Interpretation Comments NA (test code = 142 mmol/L 135-145 2651259328) K (test code = 2.6 mmol/L 3.5-5.0 LL 7648965704) CL (test code = 109 mmol/L 98-108 H 7641783802) CO2 TOTAL (test code = 26 mmol/L 23-31 9758429564) AGAP (test code = 2-16 6495571366) BUN (test code = 3 mg/dL 7-23 L 4856003345) GLUCOSE (test code = 95 mg/dL 70-110 8346639192) CREATININE (test code = 0.57 mg/dL 0.60-1.25 L 3384109959) CALCIUM (test code = 7.6 mg/dL 8.6-10.6 L 8859480491) eGFR (test code = mL/min/1.73m2 0277356455) LU (test code = LU) Association of [...] tests). Lab Interpretation Abnormal (test code = 90544-2) [facility] METABOLIC PANEL (NA, K, CL, CO2, GLUCOSE, BUN, CREATININE, CA)2022-04-28 17:52:13 Test Item Value Reference Range Interpretation Comments NA (test code = 142 mmol/L 135-145 2730492576) K (test code = 2.6 mmol/L 3.5-5.0 LL 6868942853) CL (test code = 109 mmol/L 98-108 H 3338903233) CO2 TOTAL (test code = 26 mmol/L 23-31 8837735259) AGAP (test code = 2-16 4610029631) BUN (test code = 3 mg/dL 7-23 L 5249671394) GLUCOSE (test code = 95 mg/dL 70-110 4411534920) CREATININE (test code = 0.57 mg/dL 0.60-1.25 L 7541859106) CALCIUM (test code = 7.6 mg/dL 8.6-10.6 L 0717546509) eGFR (test code = mL/min/1.73m2 0009212586) LU (test code = LU) Association of [...] tests). Lab Interpretation Abnormal (test code = 74779-0) [facility] WITHOUT [id number] 17:16:02 Test Item Value Reference Range Interpretation Comments WBC (test code = 6690-2) See_Comment [A utomated message] The system [employer] generated this result transmit annette reference range : 4.20 - 10.70 10*3/?L. The reference range was not used to interpret this result as normal/abnormal . RBC (test code = 789-8) See_Comment L [Au tomated message] The system [employer] generated this result transmit annette reference range [...] 777-3) See_Comment [Au tomated message] The system [employer] generated this result transmit annette reference range : 150 - 328 10*3/?L. The reference range was not used to interpret this result as normal/abnormal . MPV (test code = 10.7 fL 9.8-13 91008-9) RDW-CV (test code = 14.9 % 12.1-15.4 788-0) RDW-SD (test code = 48.9 fL 38.5-51.6 02165-5) NRBC x10^3 (test code = See_Comment [Au tomated message] 1174515850) The system [employer] generated this result transmit annette reference range : 10*3/?L. The reference range was not used to interpret this result as normal/abnormal . NRBC/100 WBC (test code See_Comment [Au tomated message] = 9407258118) The system [facility] generated this result transmit annette reference range : 0.0 - 10.0 /100 WBC s. The reference r alisson was not used to interpret this result as normal/abnormal . IPF % (test code = 4512955056) Lab Interpretation (test Abnormal code = 66481-6) [facility] WITHOUT [id number] 17:16:02 Test Item Value Reference Range Interpretation Comments WBC (test code = 6690-2) See_Comment [A utomated message] The system [employer] generated this result transmit annette reference range : 4.20 - 10.70 10*3/?L. The reference range was not used to interpret this result as normal/abnormal . RBC (test code = 789-8) See_Comment L [Au tomated message] The system [employer] generated this result transmit annette reference range [...] 777-3) See_Comment [Au tomated message] The system [employer] generated this result transmit annette reference range : 150 - 328 10*3/?L. The reference range was not used to interpret this result as normal/abnormal . MPV (test code = 10.7 fL 9.8-13.0 03447-5) RDW-CV (test code = 14.9 % 12.1-15.4 788-0) RDW-SD (test code = 48.9 fL 38.5-51.6 09484-8) NRBC x10^3 (test code = <0.01 See_Comment [Au tomated message] 5999314247) The system [employer] generated this result transmit annette reference range : 10*3/?L. The reference range was not used to interpret this result as normal/abnormal . NRBC/100 WBC (test code See_Comment [Au tomated message] = 5339072251) [facility] this result transmit annette reference range : 0.0 - 10.0 /100 WBC s. The reference r alisson was not used to interpret this result as normal/abnormal . IPF % (test code = 7831733575) Lab Interpretation (test Abnormal code = 42728-8) [facility] WITHOUT [id number] 17:16:02 Test Item Value Reference Range Interpretation Comments WBC (test code = 6690-2) See_Comment [A utomated message] The system [employer] generated this result transmit annette reference range : 4.20 - 10.70 10*3/?L. The reference range was not used to interpret this result as normal/abnormal . RBC (test code = 789-8) See_Comment L [Au tomated message] The system [employer] generated this result transmit annette reference range [...] 777-3) See_Comment [Au tomated message] The system [employer] generated this result transmit annette reference range : 150 - 328 10*3/?L. The reference range was not used to interpret this result as normal/abnormal . MPV (test code = 10.7 fL 9.8-13.0 84898-8) RDW-CV (test code = 14.9 % 12.1-15.4 788-0) RDW-SD (test code = 48.9 fL 38.5-51.6 43385-3) NRBC x10^3 (test code = <0.01 See_Comment [Au tomated message] 4344334910) The system [employer] generated this result transmit annette reference range : 10*3/?L. The reference range was not used to interpret this result as normal/abnormal . NRBC/100 WBC (test code See_Comment [Au tomated message] = 0197258179) The system [employer] generated this result transmit annette reference range : 0.0 - 10.0 /100 WBC s. The reference r alisson was not used to interpret this result as normal/abnormal . IPF % (test code = 8537794503) Lab Interpretation (test Abnormal code = 22832-2) [facility] [id number] 22:31:26 Test Item Value Reference Range Interpretation Comments K (test code = 0471775784) 3.3 mmol/L 3.5-5 L Lab Interpretation (test code = Abnormal 35896-5) [facility] METABOLIC PANEL (NA, K, CL, CO2, GLUCOSE, BUN, CREATININE, CA)2022-04-27 22:31:26 Test Item Value Reference Range Interpretation Comments NA (test code = 144 mmol/L 135-145 3469861559) K (test code = 3.3 mmol/L 3.5-5 L 7883154980) CL (test code = 112 mmol/L 98-108 H 5461816611) CO2 TOTAL (test code = 27 mmol/L 23-31 8205024383) AGAP (test code = 2-16 2725603602) BUN (test code = 5 mg/dL 7-23 L 1522968343) GLUCOSE (test code = 118 mg/dL 70-110 H 6115500921) CREATININE (test code = 0.63 mg/dL 0.6-1.25 5899594503) CALCIUM (test code = 7.6 mg/dL 8.6-10.6 L 1879652841) eGFR (test code = mL/min/1.73m2 5236931485) LU (test code = LU) Association of [...] tests). Lab Interpretation Abnormal (test code = 66997-8) [facility] [id number] 22:31:26 Test Item Value Reference Range Interpretation Comments K (test code = 7082726683) 3.3 mmol/L 3.5-5.0 L Lab Interpretation (test code = Abnormal 15427-8) [facility] [id number] 22:31:26 Test Item Value Reference Range Interpretation Comments K (test code = 7716958835) 3.3 mmol/L 3.5-5.0 L Lab Interpretation (test code = Abnormal 62684-8) [facility] METABOLIC PANEL (NA, K, CL, CO2, GLUCOSE, BUN, CREATININE, CA)2022-04-27 22:31:26 Test Item Value Reference Range Interpretation Comments NA (test code = 144 mmol/L 135-145 2287151775) K (test code = 3.3 mmol/L 3.5-5.0 L 7179636934) CL (test code = 112 mmol/L 98-108 H 3453685953) CO2 TOTAL (test code = 27 mmol/L 23-31 5410795652) AGAP (test code = 2-16 4811946448) BUN (test code = 5 mg/dL 7-23 L 4189147704) GLUCOSE (test code = 118 mg/dL 70-110 H 8884529707) CREATININE (test code = 0.63 mg/dL 0.60-1.25 3417795227) CALCIUM (test code = 7.6 mg/dL 8.6-10.6 L 1949396821) eGFR (test code = mL/min/1.73m2 2753350171) LU (test code = LU) Association of [...] tests). Lab Interpretation Abnormal (test code = 43660-3) [facility]2022-07-05 21:22:49 Test Item Value Reference Range Interpretation Comments MAGNESIUM (test code = 0298909303) 2.1 mg/dL 1.7-2.4 Lab Interpretation (test code = Normal 73931-2) [facility]2022-07-05 21:22:49 Test Item Value Reference Range Interpretation Comments MAGNESIUM (test code = 9698848587) 2.1 mg/dL 1.7-2.4 Lab Interpretation (test code = Normal 06764-9) [facility] 21:22:49 Test Item Value Reference Range Interpretation Comments MAGNESIUM (test code = 2116788831) 2.1 mg/dL 1.7-2.4 Lab Interpretation (test code = Normal 79416-5) [facility] (NA, K, CL, CO2, GLUCOSE, BUN, CREATININE, CA)2022-04-27 15:50:29 Test Item Value Reference Range Interpretation Comments NA (test code = 143 mmol/L 135-145 3392450762) K (test code = 2.4 mmol/L 3.5-5 LL 0365031902) CL (test code = 110 mmol/L 98-108 H 9696196990) CO2 TOTAL (test code = 28 mmol/L 23-31 4844829815) AGAP (test code = 2-16 4411381484) BUN (test code = 4 mg/dL 7-23 L 8091819034) GLUCOSE (test code = 56 mg/dL 70-110 L 5298582503) CREATININE (test code = 0.65 mg/dL 0.6-1.25 9196005675) CALCIUM (test code = 7.7 mg/dL 8.6-10.6 L 9869224428) eGFR (test code = mL/min/1.73m2 3505302078) LU (test code = LU) Association of [...] tests). Lab Interpretation Abnormal (test code = 80439-7) [facility] METABOLIC PANEL (NA, K, CL, CO2, GLUCOSE, BUN, CREATININE, CA)2022-04-27 15:50:29 Test Item Value Reference Range Interpretation Comments NA (test code = 143 mmol/L 135-145 2255253719) K (test code = 2.4 mmol/L 3.5-5.0 LL 3769673668) CL (test code = 110 mmol/L 98-108 H 3636034799) CO2 TOTAL (test code = 28 mmol/L 23-31 5879410498) AGAP (test code = 2-16 4565529851) BUN (test code = 4 mg/dL 7-23 L 7014817211) GLUCOSE (test code = 56 mg/dL 70-110 L 2029147411) CREATININE (test code = 0.65 mg/dL 0.60-1.25 5097528969) CALCIUM (test code = 7.7 mg/dL 8.6-10.6 L 4886366053) eGFR (test code = mL/min/1.73m2 6196400444) LU (test code = LU) Association of [...] tests). Lab Interpretation Abnormal (test code = 05083-5) [facility] [id number] 23:23:37 Test Item Value Reference Interpretation Comments Range TROPONIN I (test 0.007 ng/mL See_Comment [Automated code = 7171716577) message] The system which generated this result [...] biotin. Lab Interpretation Normal (test code = 16802-5) [facility] ([id number])2022-04-26 23:23:37 Test Item Value Reference Range Interpretation Comments NA (test code = 143 mmol/L 135-145 8555774676) K (test code = 2.3 mmol/L 3.5-5 LL 6044460451) CL (test code = 107 mmol/L 98-108 9549966899) CO2 TOTAL (test code = 27 mmol/L 23-31 2337124912) AGAP (test code = 2-16 0583819350) BUN (test code = 4 mg/dL 7-23 L 8233560895) GLUCOSE (test code = 86 mg/dL 70-110 8549398747) CREATININE (test code = 0.73 mg/dL 0.6-1.25 7718979395) TOTAL BILI (test code = 0.7 mg/dL 0.1-1.1 1428369262) CALCIUM (test code = 7.6 mg/dL 8.6-10.6 L 7851225320) T PROTEIN (test code = 6.5 g/dL 6.3-8.2 5483202654) ALBUMIN (test code = 2.7 g/dL 3.5-5 L 3116219707) ALK PHOS (test code = 96 U/L 34-122 8398446734) ALTv (test code = 13 U/L 5-50 1742-6) AST(SGOT) (test code = 22 U/L 13-40 7889265212) eGFR (test code = mL/min/1.73m2 1890750276) LU (test code = LU) Association of [...] tests). Lab Interpretation Abnormal (test code = 81248-0) [facility] [id number] 23:23:37 Test Item Value Reference Interpretation Comments Range TROPONIN I (test 0.007 ng/mL See_Comment [Automated code = 0921548470) message] The system which generated this result [...] biotin. Lab Interpretation Normal (test code = 51637-9) [facility] ([id number])2022-04-26 23:23:37 Test Item Value Reference Range Interpretation Comments NA (test code = 143 mmol/L 135-145 8098929295) K (test code = 2.3 mmol/L 3.5-5.0 LL 7609143068) CL (test code = 107 mmol/L 98-108 3226811679) CO2 TOTAL (test code = 27 mmol/L 23-31 9254682851) AGAP (test code = 2-16 1473219488) BUN (test code = 4 mg/dL 7-23 L 8001807463) GLUCOSE (test code = 86 mg/dL 70-110 7578341530) CREATININE (test code = 0.73 mg/dL 0.60-1.25 2516804469) TOTAL BILI (test code = 0.7 mg/dL 0.1-1.5 0565696576) CALCIUM (test code = 7.6 mg/dL 8.6-10.6 L 7804814422) T PROTEIN (test code = 6.5 g/dL 6.3-8.2 0548809706) ALBUMIN (test code = 2.7 g/dL 3.5-5.0 L 1903972503) ALK PHOS (test code = 96 U/L 34-122 5265265723) ALTv (test code = 13 U/L 5-50 1742-6) AST(SGOT) (test code = 22 U/L 13-40 3257183263) eGFR (test code = mL/min/1.73m2 0560167788) LU (test code = LU) Association of [...] tests). Lab Interpretation Abnormal (test code = 62238-6) [facility] [id number] 23:23:37 Test Item Value Reference Interpretation Comments Range TROPONIN I (test 0.007 ng/mL See_Comment [Automated code = 2238518284) message] The system which generated this result [...] biotin. Lab Interpretation Normal (test code = 47411-5) [facility] ([id number])2022-04-26 23:23:37 Test Item Value Reference Range Interpretation Comments NA (test code = 143 mmol/L 135-145 9480477119) K (test code = 2.3 mmol/L 3.5-5.0 LL 9253738485) CL (test code = 107 mmol/L 98-108 0805418285) CO2 TOTAL (test code = 27 mmol/L 23-31 1460504468) AGAP (test code = 2-16 1040713220) BUN (test code = 4 mg/dL 7-23 L 2599569085) GLUCOSE (test code = 86 mg/dL 70-110 2749821938) CREATININE (test code = 0.73 mg/dL 0.60-1.25 0845450324) TOTAL BILI (test code = 0.7 mg/dL 0.1-1.0 8320429631) CALCIUM (test code = 7.6 mg/dL 8.6-10.6 L 3234774515) T PROTEIN (test code = 6.5 g/dL 6.3-8.2 5359333640) ALBUMIN (test code = 2.7 g/dL 3.5-5.0 L 4833204667) ALK PHOS (test code = 96 U/L 34-122 0736928022) ALTv (test code = 13 U/L 5-50 1742-6) AST(SGOT) (test code = 22 U/L 13-40 2113345049) eGFR (test code = mL/min/1.73m2 6450937161) LU (test code = LU) Association of [...] tests). Lab Interpretation Abnormal (test code = 35463-9) [facility] [id number] 23:20:37 Test Item Value Reference Range Interpretation Comments NT-proBNP (test code 393 pg/mL See_Comment H [Autom ated = 2520229312) message] The system which generated this result transmitted reference range : <=125. The reference range was not used to interpret this result as normal/abnormal . LU (test code = LU) Biotin has been reported to cause a negative bias, interpret results relative to patient's use of biotin. Lab Interpretation Abnormal (test code = 53692-2) [facility] [id number] 23:20:37 Test Item Value Reference Range Interpretation Comments NT-proBNP (test code 393 pg/mL See_Comment H [Autom ated = 3125409838) message] The system which generated this result transmitted reference range : <=125. The reference range was not used to interpret this result as normal/abnormal . LU (test code = LU) Biotin has been reported to cause a negative bias, interpret results relative to patient's use of biotin. Lab Interpretation Abnormal (test code = 42591-8) [facility] [id number] 23:20:37 Test Item Value Reference Range Interpretation Comments NT-proBNP (test code 393 pg/mL See_Comment H [Autom ated = 6172616487) message] The system which generated this result transmitted reference range : <=125. The reference range was not used to interpret this result as normal/abnormal . LU (test code = LU) Biotin has been reported to cause a negative bias, interpret results relative to patient's use of biotin. Lab Interpretation Abnormal (test code = 46767-9) [facility] 23:11:39 Test Item Value Reference Range Interpretation Comments LIPASE (test code = 6097391908) 78 U/L 0-220 Lab Interpretation (test code = Normal 77341-3) [facility] 23:11:39 Test Item Value Reference Range Interpretation Comments LIPASE (test code = 3938768907) 78 U/L 0-220 Lab Interpretation (test code = Normal 74034-8) [facility] 23:11:39 Test Item Value Reference Range Interpretation Comments LIPASE (test code = 3866424965) 78 U/L 0-220 Lab Interpretation (test code = Normal 24718-1) [facility] WITH [id number] 22:55:18 Test Item Value Reference Range Interpretation [...] RDW-SD (test code = 45.2 fL 38.5-51.6 39157-2) RDW-CV (test code = 14.3 % 12.1-15.4 788-0) PLT (test code = See_Comment [Automated 777-3) message] The sy stem which generated this result transmitted reference range : 150 - 328 10*3/ ?L. The reference r alisson was not used to interpret this result as normal/abnormal . MPV (test code = 10.5 fL 9.8-13 41883-2) NRBC/100 WBC (test See_Comment [Automat ed code = 0049413528) message] The system which generated this result transmitted reference range : 0.0 - 10.0 /100 WBCs. The refer ence range was not u sed to interpret th is result as normal/abnormal . NRBC x10^3 (test code See_Comment [Auto mated = [id number]) message] The s ystem which generated this result transmitted reference range : 10*3/?L. The reference range was not used to interpret this result as normal/abnormal . GRAN MAT (NEUT) % 73.6 % (test code = 770-8) IMM GRAN % (test code 0.30 % = [id number]) LYMPH % (test code = 20.6 % 736-9) MONO % (test code = 4.9 % 5905-5) EOS % (test code = 0.3 % 713-8) BASO % (test code = 0.3 % 706-2) GRAN MAT x10^3(ANC) 6.49 10*3/uL 1.99-6.95 (test code = [id number]) IMM GRAN x10^3 (test 0.03 10*3/uL 0-0.06 code = [id number]) LYMPH x10^3 (test code 1.82 10*3/uL 1.09-3.23 = 731-0) MONO x10^3 (test code 0.43 10*3/uL 0.36-1.02 = 742-7) EOS x10^3 (test code = 0.03 10*3/uL 0.06-0.53 L 711-2) BASO x10^3 (test code 0.03 10*3/uL 0.01-0.09 = 704-7) Lab Interpretation Abnormal (test code = 02805-2) [facility] WITH [id number] 22:55:18 Test Item Value Reference Range Interpretation [...] RDW-SD (test code = 45.2 fL 38.5-51.6 40918-9) RDW-CV (test code = 14.3 % 12.1-15.4 788-0) PLT (test code = See_Comment [Automated 777-3) message] The sy stem which generated this result transmitted reference range : 150 - 328 10*3/ ?L. The reference r alisson was not used to interpret this result as normal/abnormal . MPV (test code = 10.5 fL 9.8-13.0 10354-1) NRBC/100 WBC (test See_Comment [Automat ed code = 5933476476) message] The system which generated this result transmitted reference range : 0.0 - 10.0 /100 WBCs. The refer ence range was not u sed to interpret th is result as normal/abnormal . NRBC x10^3 (test code <0.01 See_Comment [Auto mated = [id number]) message] The s ystem which generated this result transmitted reference range : 10*3/?L. The reference range was not used to interpret this result as normal/abnormal . GRAN MAT (NEUT) % 73.6 % (test code = 770-8) IMM GRAN % (test code 0.30 % = 3025041881) LYMPH % (test code = 20.6 % 736-9) MONO % (test code = 4.9 % 5905-5) EOS % (test code = 0.3 % 713-8) BASO % (test code = 0.3 % 706-2) GRAN MAT x10^3(ANC) 6.49 10*3/uL 1.99-6.95 (test code = 3023422369) IMM GRAN x10^3 (test 0.03 10*3/uL 0.00-0.06 code = 5829134903) LYMPH x10^3 (test code 1.82 10*3/uL 1.09-3.23 = 731-0) MONO x10^3 (test code 0.43 10*3/uL 0.36-1.02 = 742-7) EOS x10^3 (test code = 0.03 10*3/uL 0.06-0.53 L 711-2) BASO x10^3 (test code 0.03 10*3/uL 0.01-0.09 = 704-7) Lab Interpretation Abnormal (test code = 45904-2) [facility] WITH [id number] 22:55:18 Test Item Value Reference Range Interpretation [...] RDW-SD (test code = 45.2 fL 38.5-51.6 84271-0) RDW-CV (test code = 14.3 % 12.1-15.4 788-0) PLT (test code = See_Comment [Automated 777-3) message] The sy stem which generated this result transmitted reference range : 150 - 328 10*3/ ?L. The reference r alisson was not used to interpret this result as normal/abnormal . MPV (test code = 10.5 fL 9.8-13.0 52771-6) NRBC/100 WBC (test See_Comment [Automat ed code = 1159859102) message] The system which generated this result transmitted reference range : 0.0 - 10.0 /100 WBCs. The refer ence range was not u sed to interpret th is result as normal/abnormal . NRBC x10^3 (test code <0.01 See_Comment [Auto mated = 9469041826) message] The s ystem which generated this result transmitted reference range : 10*3/?L. The reference range was not used to interpret this result as normal/abnormal . GRAN MAT (NEUT) % 73.6 % (test code = 770-8) IMM GRAN % (test code 0.30 % = 1807761079) LYMPH % (test code = 20.6 % 736-9) MONO % (test code = 4.9 % 5905-5) EOS % (test code = 0.3 % 713-8) BASO % (test code = 0.3 % 706-2) GRAN MAT x10^3(ANC) 6.49 10*3/uL 1.99-6.95 (test code = 9974690689) IMM GRAN x10^3 (test 0.03 10*3/uL 0.00-0.06 code = 0634834847) LYMPH x10^3 (test code 1.82 10*3/uL 1.09-3.23 = 731-0) MONO x10^3 (test code 0.43 10*3/uL 0.36-1.02 = 742-7) EOS x10^3 (test code = 0.03 10*3/uL 0.06-0.53 L 711-2) BASO x10^3 (test code 0.03 10*3/uL 0.01-0.09 = 704-7) Lab Interpretation Abnormal (test code = 47900-1) [facility] [id number] 16:42:42 Test Item Value Reference Range Interpretation Comments Case Report (test code Surgical Pathology ? ? = 5072135435) ?Case: [id number] ? Authorizing Provider: ?Negrito Shaver MD ? Collected: ? 03/12/2022 1050 ?Ordering Location: ? ? [facility] ? ? ?Received: ?03/12/2022 1656 ? [facility] ?Pathologist: ? He, Carolin, MD ? Specimens: ? A) - APPENDIX ? B) - HERNIA SAC, RIGHT INGUINAL, RIGHT INGUINAL HERNIA SAC ? Final Diagnosis (test r0xlkTOxUDTlq4baJIWntP code = 3001626048) FuZzEwMzNcZnRuYmpcdWMx IHtccnRmMVxhbnNpXGRlZm tslkrvPXOiDFI0kdOaGPIb VEH6VHH5MxJaWMFkWbw8JX CxVY4viZhinBw7eJrfGIVx tjX1qJWfXAysi2crGRA0o3 qrjfwaSOOsMBobTf3ktLNg mOxlNpBbCCBxELo8uZ52WL VzjH6pvCNsNUdaqzPyDvZ4 EWynMBMsPwU9KJZszRJiNK D6kFnjZGMpytrfAsE4GIha FOUmjssuWEo8MInaKUFdbC R8RKJlpKFmD0RsRWSpSB6b prr8SPT7HFgxCHZnKfP4KM FlcYHaOMTcwEsgDQbzv968 PQF2ZkNmQRSccvDthVkxwB 8hIsXnEReqBJZbMH8bPMWA UJ2DCRqqAGVGHZHZIAJUVX 9NWTpccGFyICAgICAtIEJF TklHTiBBUFBFTkRJWCBUSV VPDQXfD7xHUOGKLFBXNAja E99YH9VSQMgHSqMYGkCDCF SZHYCYXW3TBDSKJEiyOMCQ DI5YFTYYZALVERKecKAdTB WuqbAKYqWyC7rvXcJruBCu SEVSTklBIFNBQywgRVhDSV EVB936XQIwsgp+NY6shwb+ AT4aHHPDDxyOJyWQLHWKBH sHFOeRLQFLKE0VFYADJPIL E1AMGKBHP0QxUXmCK4NPRV uHINajUcSSK5BDWGTyI77B T7KNBNwVXvewFVFvquIhAJ ZhSBPfQ20UL2sQCNFMTDXJ PYSVJYwZVb1ZRXOEKPDewD HdBJAqF3NkQNIzZEPmzjsl czIyIExpbmRzYXkgQmlnaG AfZFMDXrPgWA3tPG6pCQCm GGQ2MaTiVDYLHELssdpwfj RgKKLqlj84ZQC1CkPkr4I3 JQDxAvIzTRMkQC8zaDgzHK LnAS7yADKuY5gtzM4hyqa6 UnLkWGLkLpC7SKTrytR5Zw h4EDUyCDzaf7ikk6JwD3Qe sZSgbNr2d7eoPPEbYbR3kD KpIOghS8qxpbMgmPAzXKSl NYh8xRyzOaNvJBDhh2zgwf BcZmNoYXJzZXQwIENhbGli lno4aJ86IXWsdI0exIZmYK fijjQdHdX9THcyHRRyJeE9 MYFzbHBrQQRsP8qiYXPpPX jlSMBvWJosjPOnKKW1lWny t5H3xCRmaFKaeJxeZnJoYr UhUBHVx4IhAFf0gPayG4Mg FHXpNcD8wSMkFOJkMNysCJ BiVMEhaxV7nY43GZzieaS2 fAPrm5Czj31mx586eN6fwN AfOUW8TBFcWTRsnVReVEJr MVC2XTGvgEOsO6lnUVJfWA 0wnezeUVonMVyuVINvwTG2 OIYskCDmE8PlXSVjLAawOH Gffjw7YgOqOi9ceWUzaWdd NMwqz1kev8rlwZGwHik1AI HjYlRvTpjmUEsiz3Gai8fb IFWtbv5mWOT3gPOdmIymw3 G0nSQoGJBrrXUjdzLhUSCg ZgJ6CXbqUL6cco46KWNmEX X1wq9beHPrrYrwhqSuzFXn LUynT8DeGFZst692XZQxL7 YrJQQjz0B2axXyPzBhCRCh hKR1olL5CSFxKZa0nFItex P3xqScmWXdH2pdcK8dKMZc VU0vfcblc2igRFliSYnoDF LhvLO1plN3XYFlnBRvI0Jv gZ5aIIFgXSqlUIEwpgc7Ja YwCw4ozVJniJsfDNmnYmbz YWdlXHBnbmNvbnRccGduZG VjXHBsYWluXHBsYWluXGYw UMShAsFgtOunbGtcoQ6eDn TaToKfODtiKK6wIOLkT5rd mDUbGXYjWFXwU2zrYlOnyI 9jaFxmMVxjZjJcZnMyMFxw YXIgSSBoYXZlIHBlcnNvbm HbsBlvyaF4nGG4GUBkCTvo APAjGEWjtXXtkv1mzQmzHJ HlHX4lPIFuroWxKAonnGob GGkeNBQ7RCBalSNlrHDyqK FkZSBieSByZXNpZGVudHMs FBYyqTqaw2Ajb9LoyZJ0gA 0fd7fqe9SoVXEfcLX2IB12 xlJ6cJ2qMEJgSS9tTRYhUV 9xeGHngEMzIGLfw31erMez cyByZXBvcnQuXHBsYWluXG YyXGZzMjhcbGFuZzEwMzNc aGljaFxmMlxkYmNoXGYyXG nqE6dxXyAqSzLzTLjrRUD9 pWkzuhGcQKima2DxT3IkZn AwMFxhbnNpXGRlZmxhbmcx EZIkFXS1hlZbSNIpNMkvFY ErLOeoPn4bvBUcyAanSlQc AVUgs5xrksORJOamBlMmF0 17NNSiJTxbv4yad4VjTIXe zMFei1X2BXZYsyjurOx8gI djB29qs2I1EyuzA7ddHAPj GAWrZ3VrVK3fDKSsKad3BW T3UTJ1OAEkWDUmQ4JgUO1a WHLccPRdAOr1v6zfaDtzTF VkPAB6v7loLMpipkQ2ZC1l kw8mkBg8h7xhtpWvRBZvVU FqfOZXVEDwB4XroNgeRu1o fQd7oFcmVhwqVJM1Jfz3JQ 5diw84wrc5cLyjXBMhjiax QrE0BIzuYEGxurscWBg6YJ pgKQXbqOC1FYDwdFKrG5Tl WCMhOJ0pbya7HRR4GIwkAS CuEwA2QATjoISyFLXzyOhg WMqyf339KXB3AkIjKG7tG7 Sau9I0wJ2crTPdMWEbaYTf XsAuQSJxuz1eiWWlOWsfi9 QjW75diAX3HJmdc1lbHP1k UhX8riZtEQbhw2uapW9eGz A8MDjhMO8wds62IXVqFGR4 gb3efUIsvSiphoEdsHBvGJ gzG6YvZDDyq166GLHgF2Id PFUzl3M9nzPwYpFlIABvnH O5poS3VKVzCHy1hTAhdsL9 zeLwkYTzJ3rusD3fACCaSI 4lhxpuw2ipITmmEImrVHNx uNJ7pbX4JAMzuGRsL1TeqE 7cXJXnSLxtJDBrzyd4JjBj Sz9gtUCjoGlbHFsfTbwnVQ dlXHBnbmNvbnRccGduZGVj XHBsYWluXHBsYWluXGYwXG KrXjKbsKLsRZtaz5CfmrZh qLvkFJDzLEb0auTtbkwqsV d8sXOjiRuqSEYkdTbgwY9b RkRbGbHaLIlsPS0kLCLxI0 dkuJEdYLNfKSObF8ggAfUc sO8vxUnuCJiaVfFlAsMkZY xsdHJjaFxwYXIgSSBoYXZl TFMkzcUztaLhrDlyuaF4fC U8YTVxVTfbVHZaXVPztJXz mj8haBvlZVCzIO3eMRGcwr KdDVxywTqmCYnqQYH8WYZe bWVudHMgbWFkZSBieSByZX UcQSUcmWPpXDNxmRpbr6Hq w7NtuRO0aW5bq8gjn4AeHH ZklDC9VK21oaI2pT5dLXFt XD2qVOFcQU1ruKJfoTKxIV Ahp60ckIakbwMjPHWhtbGe XHBsYWluXGYxXGZzMjBcbG FuZzEwMzNcaGljaFxmMVxk TeDfEGEsELayA7ktZoAaR2 YyXGZzMjBccGFyXHBhclxw GZAaa7LcXePin3zmBTthi8 wtvBo8EYgqaISxmqokPNav zuO9VRCiUClrRWAtJCKmXG RcbGFuZzEwMzNcaGljaFxm OAolSlIkZAPoCDkhH5wuDn VnV2NpDYDjJMEgiFVzP4ym TFO6oX6ct0rdx9VjgPFrMq Xks0siiaQmCLJtuDMmpaLz uHGbGKGde0NsNIUrTNYtHJ SVMc2RQDYqqOPbE8u8yLVM IP6dhKWsWAVmDQNzC2HsEc WXjlGxr1F3PRGbuPRaMNCB HOAbjRDvE8l4rPlsDNbgUj y6BjQedSjsvG5uFhOoGxSa ANqgHE4bKMMnL1dhhWDcIO GeSSHxF0lpCgZxzM8exAur MVxjZjJcZnMyMFxsdHJjaF eeTKN2gA== Clinical Information RIGHT INGUINAL HERNIA (test code = 3705370571) Gross Description (test d5nchOGiXZFtaKFMKVEmQ3 code = 9171285946) galhOpCXAtuCJcW1Boxhqb FCvoSR3aYS7paShcaYRtrE JuCP2WVUUqAfWbFIAooNJw vpFxNxEbAUCkeMFilCS1UN WaJN5mjrnwPVmmMQfiNVSc xbQ0KUEfvWAcV4CeBRJkTN 8pjbobSBJ9ICiosV0kgmNP QugcUu7gvNAttOxqWgGfBi NoYXJzZXQwXGZuaWwgQXJp ZGt8oP2ZEbyjCRO2GSJETu rdAUHqXF5Dt4svQFNmdJMx EWI4LRnlqBOoKZGrEEJaHN h1GGOlJGoqbOBiWX3ofFqw ZpgajJyzv0DstDMmURybEM JcJLBiDJhkHIBcPW3DZpNl LSK3CDzjPAukCSa3HUs7KQ 9WUyAiICAxODgyOTUyMSIg OQj2UYqbTZ9LDMJ3VqM7ZQ L3MrnlQQInLxknIAf4PFPz XFxmIEFyaWFsIFxcZnMgMT JxBYenpMFpHT3ebEzrhZTx blxmczIwIFNQRUNJTUVOIE NraBPcOS1UOHElADszFTQl cNDDBDW2NY6qVEYJWzzvlO GkEMPmiOapDHbrsI1tHS6H HEb4iqNbBWWeMvRkN6SiJ0 lrWZ1fJJSvlfZaHKGflRGa DLAyjpOif9CkNVjwbjFiHG JlbGVkIHdpdGggdGhlIHBh zGdcbgTmriFjUK2oDXEXCC EljR8kFYBzQpSdeDGqRNx0 IvtpYD0fOPKlgfHis8QnNI 9mIGFuIGludGFjdCwgdmVy oBwta4UvITKwpOSfJJd1XA y8WgFvZ82xuN0blXTiC6Up EPrbJW36VGLiWMDleQTwwn MrpWEmKDWiozxpn8c3gIDy sFAxA0xmXPVzMFDnPDPcBW 9yaFuaDT7gKTPaG5L1eIBt xNjdSIUmLDOpP9Rqi47qmD QvB8mhLqRSsZRtm3Csx2Vt YFotBTYqza2axF0cBCOrBH CfelEhq74xunFnlEo1KARv o873rGW4gTUgQLWvgscwk5 CdFDH7STHbVUmkMaSWwFJm v6YiO5ccKO9ulYLaf2JnmS PasEpbf0YywZtswgVkIPUb UHAvsoOcsVG9PZ0cfHeoat JumCPbi2QtYqXyXHMcDR4a YOUnhFHpPG3fmjXtB6iqEi Nwao7fFYSefpUujC92CFMv NSBjbSBpbiBkaWFtZXRlci N9fZJ5PVJzefFnhM9eXXZd R33pxQ44ebNhbQ94owXqt7 Kbt74qtMA4JG6cUaKts80m RqMoDVcpgLH7JTAmSNdcSC 3xEGYjruPxjnK2vK5kejEp txZaI5Qbn3UaxRDlMGPbbX eegOLsPyLCWRQ2rU1fpyV0 byBpbmNsdWRlIHRoZSBlbi PbTOToKDRog0SgyQfylaUi KCVtcT5jMUfjg2HhEZCixX UpLCByZXByZXNlbnRhdGl2 MZTrsv1zov8yQKK6nQ0dBR PfyeMuZkwxZIH3PSPxeTef ZGQrTGKslWHoaBQ5QYQnbN 2fGRAhGKswgHtmvU9hXSZc U22dt1FBj0AvZSElIVbqw8 txdYgsk0ThgCYxJZgmCXAg wSAjUUbbkS3hEhFuf7iwoV l0KFvmhmD1RJZfta3HJxdy NvleiJpgf8JfbWRyGHbkQQ PlCJHoPYaiOEKlSX4PWuTm GGJ3BVisIIetNMr0LPx1SE 1WKuRsUSKzSBqpPOg6ZTGu QGl0QMdyYX6EVNZ5MzM0YW T7NLVvJFKoQdnmRNc3LQTl XFxmIEFyaWFsIFxcZnMgMT GnVFbpwMBvXV9liNltygGk IFNQRUNJTUVOIEJccGFyIA 2UAENmGEtjRKGqzYYPPLZ4 HY2tFYTMLlnacPWaHHGdhF hfJCjsrK6fTD7KKUy4itBv VGEoFfOlL4QpH7kxIG8hWi BpcyByZWNlaXZlZCBpbiBm o5ItDSudvnAyHRJinXBuCW dpdGggdGhlIHBhdGllbnQn jcVcFX5jPZIKQOMboQ5nOA WjGuFdmWhxwETyyyp8hT8o uDAjZKUmbPCsd9TnOimzGO 0gKCXkdhVga4DxSF8nFZHi kIDnVGFoglntx0XxR1JzZH Npu59zoNS7fCJwuSQbYnIv C62rovIqUSShTLM6MIKzEV B8ETMbQgZumSawt9jeP4df cHSfp7GylYYkgIszk4LqjJ lvbmVkIHRvIHJldmVhbCB0 LZ9gmUwwkqJeAJ2yqeEpo8 TmQYL3gVKscCBsQCXueb0x VDCgzXPyp5ChoBD2zEYvZM UbN2Eay98tQSUpVNIgqYOb jIK2WAZpdE7zWxQnGMJukb NHZuecZSDsPSnHNGU3LRKc amVzdGthLCBQQSAoQVNDUC kNClxwbGFpblxlcGljTmVz aJYkOjXqvXfdkM19JJHraZ WpPWU4FW5lLSDtxtmnWWOc KTFsTBP3RXuhcX68oBMpDV ReEFMnqKUjqL5GOCLiQEE9 QWaruH25sGZwII5CADOvVJ M2KXQoxOFuVBW3GZ9ljI4W fQ== Disclaimer (test code = k1yamGFiDSOfj8dqSDXalX 3979578825) FuZzEwMzNcZnRuYmpcdWMx NHheetZiYQxdp4ZkS7XwTi AwMFxhbnNpXGRlZmxhbmcx NROcTFR7jvMxKVZjJWcwUP SlHEsuGh7qhQReiXbeIoMq PAMes8aobsKHXXcwSaWuL9 22RYZiWKhia6stl5MgKOGs aRCrl1D2CTISwghckAi7pB pqM15tv6S3DkrfP7ncFMWo RQCmQ2GhJT1rXFFdNyz2QC N2FWX3ASRsFJYmN2FsRU5p USQldADuRKs2n5vstNguKC RqVQM5x0luEFnzkkIuAM2d ud7riCd5i6pfdoCkEFHjAE OwuTHXDVWxC9XbdVvsKo2m xCf5lWtzSqsyUMC1Wvg7GW 8gff73lnu2uDvlUYDjxrxu CtC0JAguMEErclilWTk4ZM ayDMRtrKJ2YLXqsLMyB2Nw XNDmZA5ttik7CBY7LEpcRP MkFzM5JSVcoTXrBKNxbKil HAwqy328OSY1KbUbYL5aY9 Agz9I7kY1oxSKtJWKhiYTo QaSsWSEgri0gtRDuJBowd2 ZmULA3ujX4vQIhpYHgOHZx ZU10Mslwd8ObWfyjl7DgA4 9seFW4HYrnk4mlQH7qFjU0 vkExIXwwg6mqcU7bTrS7GB vpBV1yIU9vTLEbtD4cipru XHBnYnJkcmhlYWRccGdicm JjEu7aeMnrMYF0KSfcC8ub oC4eVpS8GIvsO3uwbO6yLI w7KQoaxDN8YNDfuP7iWA3k agjpc0kbOIgdQPhsKMTbbb K1fvQ3AJMfcHOiS0ProH8k KTXiGO1fdlkpa0xrIKK0FU bcPECdUKK9XfPiNEPlj0Oo zdw2HzAfi9MssTXrKOtsQ2 6cs049TLQsmqHdT8hbsOFf ticpuFNnebfaVLricbZ2XE HyckYqc2WjYHDnOOP6QQtn ZRzkbVHfGOLhxYstc4fiC9 RscGFyXHBsYWluXGYxXGZz MjBcbGFuZzEwMzNcaGljaF eyWChoGsGnXUCbJMhaW2zu DsIxL3AuUHKeGvYyjJYsK6 ggVGhpcyByZXBvcnQgbWF5 UCyiE9e7JQSmdyRlrGy9gb IcLcVpXPPkMCI3XTdgdCTc MBDmg4EchjuhpWHsAn8cuH LlWDAfbN3kGCPkGRHlYTit YT0boIz4EIFAhXEemAFuWg RNRVDvOG15dxCvQOYWvlyz p1L2IIebKNDqz7UoxYBlS7 fbg2JdOQDmu26uIN2yt4H4 j7szEZM0PI6mt7QrUKJsyV EagCVhNDQns0Bdarsqy6Wr CFDaaaUqy3LlOPVhlfMafY JaITAassMoqd6kioGaYZWq ASAnW9QtuzpxpOufguLjMF Bkfb5tqySaQCX9YTFCIJWn RGRbo6XbxP5hbWQPQCA6yS Lcya7ciyPRbSFxWVVsaj87 KPUiDK7zM4ahOFUvMWQxjx JavRIst2XcYBOzcWO4gDJh ES7XOiVEt10sMITsCINTqn VbNRCxaRqkwHG5rfI3mL5c IChGREEpLlx+IFRoZSBGRE TkNI0rnvVwh3YfhoCgvZpi MSGkjBInv2PmrWHfz5LtyC cbw3DdkGBkmEYqGK0lUTEa clxwYXIgVVRNQiBMYWJvcm E7h8RjBRKjLNTuPRG8eYxf irc4NLDhpX6xFUAmM8topz rgXSvuTWEuv5OuzD0quIZX lLAns0FaeAGibNIJvAEiZZ 2usxXpNWqXKYqAZJJ5fhEw NGDhu6YtFFgbA6lnN04irV bejIs3yCT2LRN3yW1dVlm+ IFxwYXJccGFyIEFwcHJvcH QaSKBxuRrrmsYvW6WahoQs uZ1inYDwgaLuII1aVV1oK9 M3uHMnEKFaxfLzj5kqXPmi dmUgYmVlbiByZXZpZXdlZC Mwo4ZkBXnbWDW4MNwrbcId bmNsdWRpbmcgSCZFLCBTcG SsbDYoGCB6ZErktdZtukZx QM7bhP4xdYkibC9irBKxoX A2qhnpOFRdEHBzeMibCZBa CX5jdRPtGBRjuuMCaDxmvK JjgO0yM2QvPKFdBHWdhh9e ZVVhhV9kWIlcf1VzttogLF ByREMlREErcxVsva1nITFy vJBYFL0XHXycnLXmm9Ijbv YyI1bDBFF9RODzFmDdFvad ONQbzNVqkSNnJSZqtb15OT LnkW9auTgbZUYqkW7izA7k aWfllP5bIaZyZsOhZXkfOE 1qQTHfW2ituRVfMPOuNGEd R4zlHaQodR7ewHcrDBxmVl DpDdHwEXzbLHN4zY== Embedded Images (test code = 0184327089) [facility] This is a pre-surgical type and screen. ONCE [id number] 17:52:02 Test Item Value Reference Range Interpretation Comments ABO & RH (test AB POSITIVE Performed at [facility] code = 20) [facility] [address] [place] [address] s [id number] Free: [phone] A No. [id number] IAT (test code = Negative Performed a t [facility] 1185) [facility] [address] [place] [id number] Free: [phone] A No. [id number] [facility] 23:13:17 Test Item Value Reference Range Interpretation Comments PALB (test code = 61506-4) 20.2 mg/dL 18.0-45.0 Lab Interpretation (test code = Normal 19016-1) [facility] HospitalHEPAT[facility]CTION PANEL (32578) (ALB,T.PRO,BILI T,BU/BC,ALT,AST,ALK PHOS)2022-02-04 23:05:58 Test Item Value Reference Range Interpretation Comments TOTAL BILI (test code = 1873614077) 0.4 mg/dL 0.1-1.1 BILI UNCON (test code = 5552774878) 0.2 mg/dL 0.1-1.1 BILI CONJ (test code = 5569303431) 0.0 mg/dL 0.0-0.3 T PROTEIN (test code = 9263491154) 7.7 g/dL 6.3-8.2 ALBUMIN (test code = 6049399627) 3.4 g/dL 3.5-5.0 L ALK PHOS (test code = 3893343008) 65 U/L 34-122 ALTv (test code = 1742-6) 11 U/L 5-50 AST(SGOT) (test code = 2312165575) 23 U/L 13-40 Lab Interpretation (test code = Abnormal 26723-0) [facility] [id number] 03:38:00 Test Item Value Reference Range Interpretation Comments AB HEPATITIS A IGM NEGATIVE (test code = HAVMAB) AG HEPATITIS B NEGATIVE SCREEN NEGATIVE SURFACE (test code = HBSAG) AB HEPATITIS B CORE NEGATIVE IGM (test code = HBCMAB) AB HEPATITIS C (test <0.1 RATIO <0.8 S/C RAT ION 0.0 - code = HCVAB) 0.9 NEGATIVE <0.8INDETERMINA TE 0.8 - 0.9POSITI VE >0.9 [id number] 16:06:00 Test Item Value Reference Range Interpretation Comments SURG (test code = SURG) RUN DATE: 10/07/20 [facility] PAGE 1 RUN TIME: 1607 Specimen Inquiry RUN USER: INTERFACE PATIENT: FIONA SANCHES JR LOC: WINTER U #: [id number] AGE/SX: 35/M ROOM: WINTER RE10/06/20[facility] DR: Sreekanth Garcia MD : 84 BED: 3 DIS: STATUS: ADM Arcadio TLOC: SPEC #: [id number] RECD: 10/06/20 STATUS: ELZA REQ #: [id number] MIRIAM: 10/06/20 [facility] DR: Sreekanth Garcia MD ENTERED: 10/06/20 SP TYPE: SURG OTHR DR: DOES_NOT KNOW No Primary or Family Physician Juan Mcbride MD, Jignesh P MDORDERED: SURG PATH LVL 4 COPIES TO: DOES_NOT KNOW No Primary [place] [address] [address] [email or web address] [address] [place] [address] Arnulfo Cormier MD [address] [place] [address] HISTOLOGY: TISSUE ID BLK PCS KANWAL LEV PROCEDURE DISPOSITION ____ ___ ___ ___ ESOPHAGUS, NOS A 1 2 PROCEDURES: SURG PATH LVL 4 (10/06/20-1245) TISSUES: A. ESOPHAGUS, NOS - ESOPHAGUS BIOPSY CLINICAL HISTORY ESOPHAGEAL FOOD BOLUS, STRICTURE V DYSMOTILITY CONTINUED ON NEXT PAGE RUN DATE: 10/07/20 [facility] PAGE 2 RUN TIME: 1607 Specimen Inquiry RUN USER: INTERFACE SPEC #: [id number] PATIENT: FIONA SANCHES JR #[id number] (Continued) CPT CODES CPT CODE(S): 73905 , , , , , , FINAL DIAGNOSIS Esophagus, biopsy: ACUTE ESOPHAGITIS WITH CANDIDIASIS NEGATIVE FOR INTESTINAL METAPLASIA, DYSPLASIA, OR MALIGNANCY GROSS DESCRIPTION Esophagus biopsy. Received in formalin are multiple minute fragments of suarez soft tissue, 0.1 - 0.3 cm. The specimen is filtered in a teabag and entirely submitted as A. ba/nr Grossing performed at [facility] Pathology, [address] [place] [address], [address], [place] [address]. Parts Administrator: Abner Steward M.D. MICROSCOPIC DESCRIPTION Esophagus biopsy. [...] indicativ e of the presence code = RJLSS08GG) ofSARS-CoV -2 RNA, clinical correlation wit h [...] SARS-CoV-2 assa y in vitro. Novel Coronavirus [id number] 15:50:00 Test Item Value Reference Range Interpretation Comments Novel Coronavirus Negative Negative Positive r esults are 2019 Inhouse (test indicativ e of the presence code = IANXL16PT) ofSARS-CoV -2 RNA, clinical correlation wit h [...] SARS-CoV-2 assa y in vitro. CBC W/AUTO [id number] 13:10:00 Test Item Value Reference Range Interpretation [...] NT WITH AUTO DIFFERENTI AL. CBC W/AUTO [id number] 13:10:00 Test Item Value Reference Range Interpretation [...] CONSISTA NT WITH AUTO DIFFERENTI AL. RBC [id number] 13:10:00 Test Item Value Reference Range Interpretation Comments PLATELET ESTIMATE DECREASED THOUSAND ADEQUATE PLAT ELET COUNT (test code = REVIEWED AND PLTEST) VERIFIED. PLATELET MORPHOLOGY NORMAL (test code = PLTMORPH) CBC W/AUTO [id number] 13:10:00 Test Item Value Reference Range Interpretation [...] NT WITH AUTO DIFFERENTI AL. COMPREHENSIVE METABOLIC [id number] 11:48:00 Test Item Value Reference Range Interpretation [...] TOTAL (test code = ALKP) CBC W/AUTO [id number] 11:33:00 Test Item Value Reference Range Interpretation [...] REQUIRED (test code = DIFF/SCN CRITERIA MDIFF) [id number] 04:59:00 Test Item Value Reference Range Interpretation Comments AMMONIA (test code = AMM) 56 mcMOL/L 11-32 H LACTIC [id number] 04:59:00 Test Item Value Reference Range Interpretation Comments LACTIC ACID (test code = LACT) 0.7 mmol/L 0.4-2.0 N GLUCOSE BEDSIDE [id number] 20:35:00 Test Item Value Reference Range Interpretation Comments GLUCOSE BEDSIDE TESTING (test code 109 mg/dL 70-110 N = GLUBED) GLUCOSE BEDSIDE [id number] 17:10:00 Test Item Value Reference Range Interpretation Comments GLUCOSE BEDSIDE TESTING (test code 105 mg/dL 70-110 N = GLUBED) - US ABDOMEN [id number] 16:39:00 [facility] : 1985 Sex: M Name:FIONA SANCHES JR [facility] : 1985 Age/S: 35 / M [id number] Unit #: [id number] Loc: [place] [address] Phys: Matilda Kirk PA-C Acct: [id number] Dis Date: Status: ADM IN PHONE #: [phone] Exam Date: 10/06/2020 0568 FAX #: Reason: elevated lfts, evaluate for cirrhosis EXAMS: CPT: [id number] US ABDOMEN LTD [address] RIGHT UPPER QUADRANT ULTRASOUND. CLINICAL HISTORY: Elevated [...] Signed Report (CONTINUED) Name: FIONA SANCHES JR [place] : 1985 Age/S: 35 / [id number] [facility] Unit #: [id number] Loc: [place] [address] Phys: Matilda Kirk PA-C Acct: [id number] Dis Date: Status: ADM IN PHONE #: [phone] Exam Date: 10/06/2020 1513 FAX #: Reason: elevated lfts, evaluate for cirrhosis EXAMS: CPT: [id number] ABDOMEN [facility] [address] (Continued) CC: Sreekanth Johnson MD; Matilda Kirk Technologist: Rae Eaton [facility] Date/Time: 10/06/2020 (1639) MoeAM18 PAGE 2 Signed Report Name: FIONA SANCHES JR [place] : 1985 Age/S: 35 / M [address] Unit #: [id number] Loc: [place] [address] Phys: Matilda Kirk PA-C Acct: [id number] Dis Date: Status: ADM IN PHONE #: [phone] Exam Date: 10/06/2020 1515 FAX #: Reason: elevated lfts, evaluate for cirrhosis EXAMS: CPT: [id number] [place] ABDOMEN LTD [address] (Continued) Orig Print D/T: S: 10/06/2020 (1643) Probe: PAGE 3 Signed ReportUA RFLX MICR CULT IF [id number] 15:23:00 Test Item Value Reference Range Interpretation [...] 92 mg/dL 70-110 N GLUBED) GLUCOSE BEDSIDE [id number] 13:37:00 Test Item Value Reference Range Interpretation Comments GLUCOSE BEDSIDE TESTING (test code = 58 mg/dL 70-110 L GLUBED) CREATINE KINASE (CK)2020-10-06 11:26:00 Test Item Value Reference Range Interpretation Comments CREATINE KINASE (CK) (test code = 287 Unit/L 26-192 H CK) [id number] 11:26:00 Test Item Value Reference Range Interpretation Comments AMYLASE (test code = JOSE CARLOS) 120 Unit/L 25-115 H [id number] 11:26:00 Test Item Value Reference Range Interpretation Comments LIPASE (test code = LIP) 112 Unit/L 114-286 L CBC W/AUTO [id number] 09:58:00 Test Item Value Reference Range Interpretation [...] DIFF/SCN CRITERIA (test code = MDIFF) WBC [id number] 09:58:00 Test Item Value Reference Range Interpretation [...] NORMAL (test code = PLTMORPH) CBC W/AUTO [id number] 09:55:00 Test Item Value Reference Range Interpretation [...] DIFF/SCN CRITERIA (test code = MDIFF) WBC [id number] 09:55:00 Test Item Value Reference Range Interpretation Comments SEGMENTED NEUTROPHILS (test code = SEG) % 40-75 LYMPHOCYTE (test code = LYMPH) % 12.6-43.5 CBC W/AUTO [id number] 09:55:00 Test Item Value Reference Range Interpretation [...] DIFF/SCN CRITERIA (test code = MDIFF) WBC [id number] 09:55:00 Test Item Value Reference Range Interpretation Comments SEGMENTED NEUTROPHILS (test code = SEG) % 40-75 LYMPHOCYTE (test code = LYMPH) % 12.6-43.5 COMPREHENSIVE METABOLIC [id number] 09:14:00 Test Item Value Reference Range Interpretation [...] TOTAL (test code = ALKP) CBC W/AUTO [id number] 09:02:00 Test Item Value Reference Range Interpretation [...] CRITERIA (test code = MDIFF) GLUCOSE BEDSIDE [id number] 06:41:00 Test Item Value Reference Range Interpretation Comments GLUCOSE BEDSIDE TESTING (test code = 65 mg/dL 70-110 L GLUBED) COVID 19 INHOUSE [id number] 05:40:00 Test Item Value Reference Range Interpretation Comments COVID 19 INHOUSE AG NEGATIVE Negative Per manu facturer, (test code = negative result s should [id number]) be treated aspr esumptive and, if inconsi [...] co nsistent with COVID-19. - CT CHEST [id number] 03:30:00 [facility] : 1985 Sex: M Name:SANCHESMYRNA SHINE JRTIN [facility] : 1985 Age/S: 35 / M [address] Unit #: [id number] Loc: [place] [address] Phys: Scott Person MD Acct: [id number] Dis Date: Status: REG ER PHONE #: [phone] Exam Date: 10/06/2020 0249 FAX #: Reason: possible esophageal pneumatosis EXAMS: CPT: [id number] CT CHEST W/CONTRAST 07264 DICTATION LOCATION: [facility] HISTORY: Male, 35 years of age [...] size; and/or use of iterative reconstruction technique. S TATEMENT: Exam quality is acceptable. FINDINGS: AORTA: No aneurysm or dissection. PULMONARY ARTERIES: Within normal limits caliber. HEART: Heart size within normal limits. No significant pericardial effusion. MEDIASTINUM: No pathologically enlarged lymph nodes by CT criteria. Visualized portions of thy roid gland unremarkable. The esophagus is dilated throughout measuring up to 5.0 cm transverse dimension and 2.6 cm AP dimension. The esophageal lumen is filled with food material and fluid. Concentricring of tiny bubbles is seen surrounding the [...] Signed Report (CONTINUED) Name: [facility] SANCHES JR [facility] [place] : 1985 Age/S: 35 / M [address] Unit #: [id number] Loc: [place] [address] Phys: Scott Person MD Acct: [id number] Dis Date: Status: REG ER PHONE #: [phone] Exam Date: 10/06/2020 0245 FAX #: Reason: possible esophageal pneumatosis EXAMS: CPT: [id number] CT CHEST W/CONTRAST [address] (Continued)(i.e. scleroderma or dermatomyositis). Infiltrative neoplasm is included differential but I do not id entify a distinct mass. 2. No evidence for [...] Momin, RT(R)(CT); CTDI: DLP: Trnscb Date/Time: 10/06/2020 (033)[id number] Orig Print D/T: S: 10/06/2020 (0333) PAGE 2 Signed Report- CT NECK W/CONTRAST 2020-10-06 03:11:00 [facility] : 1985 Sex: M Name:FIONA SANCHES JR [facility] : 1985 Age/S: 35 / M [id number] Unit #: [id number] Loc: [place] [address] Phys: Scott Person MD Acct: [id number] Dis Date: Status: REG ER PHONE #: [phone] Exam Date: 10/06/2020 025 FAX #: Reason: possible esophageal pneumatosis EXAMS: CPT: [id number] CT NECK W/CONTRAST 36786 EXAM: - CT NECK W/CONTRAST LOCATION: H57 [...] SANCHES JR : 1985Age/S: 35 / M [id number] Unit #: [id number] Loc: [place] [address] Phys: Scott Person MD Acct: [id number] Dis Date: Status: REG ER PHONE #: [phone] Exam Date: 10/06/2020 0250 FAX #: Reason: possible esophageal pneumatosis EXAMS: CPT: [id number] CT NECK W/CONTRAST 36439 (Continued) CC: Technologist:Valentine Momin, RT(R)(CT); CTDI: DLP: Trnscb Date/Time: 10/06/2020 (310) [email or web address] Orig Print D/T: S: 10/06/2020 (313) PAGE 2 Signed ReportBASIC METABOLIC [id number] 02:14:00 Test Item Value Reference Range Interpretation [...]
[2022-08-20] MEDS ORDERED: ACETAMINOPHEN 325 MG TABLET ONE (12:05)
--- NOTE | 2022-08-20 12:39 | EDPHYS ---
Physician Documentation [facility] Name: Tahir Ag Jr Age: 37 yrs Sex: Male : 1985 Arrival Date: 08/20/2022 Time: 11:46 Bed IW9 Private MD: ED Physician Jefry Pathak HPI: 08/20 12:00 This 37 yrs old Black Male presents to ER via EMS with complaints of Headache. cp 12:00 The patient complains of pain to the forehead. cp 12:00 The patient describes the headache as aching. Onset: The symptoms/episode cp began/occurred today. Associated signs and symptoms: The patient has no apparent associated signs or symptoms. Severity of symptoms: in the emergency department the pain is unchanged, despite EMS interventions. Historical: - Allergies: 11:48 No Known Allergies; mb8 - PMHx: 11:48 achalasia; Bipolar disorder; Diabetes - NIDDM; Hernia; Hypertension; Schizophrenia; mb8 Seizure; - PSHx: 11:48 gastrostomy tube; mb8 - Immunization history:: Adult Immunizations unknown. - Social history:: Smoking status: Patient reports the use of cigarette tobacco products. ROS: 12:05 Constitutional: Negative for body aches, chills, fever, poor PO intake. cp 12:05 Eyes: Negative for injury, pain, redness, and discharge. cp 12:05 ENT: Negative for drainage from ear(s), ear pain, sore throat, difficulty swallowing, difficulty handling secretions. 12:05 Neck: Negative for pain with movement, pain at rest, stiffness. 12:05 Cardiovascular: Negative for chest pain. 12:05 Respiratory: Negative for cough, shortness of breath, wheezing. 12:05 Abdomen/GI: Negative for abdominal pain, nausea, vomiting, and diarrhea. 12:05 Back: Negative for pain at rest, pain with movement. 12:05 Neuro: Positive for headache, Negative for altered mental status. 12:05 All other systems are negative. Exam: 12:10 Constitutional: The patient appears in no acute distress, alert, awake, non-toxic, well cp developed, well nourished. 12:10 Head/Face: Normocephalic, atraumatic. cp 12:10 Eyes: Periorbital structures: appear normal, Pupils: equal, round, and reactive to light and accomodation, Extraocular movements: intact throughout, Conjunctiva: normal, no exudate, no injection, Sclera: no appreciated abnormality, Lids and lashes: appear normal, bilaterally. 12:10 ENT: External ear(s): are unremarkable, Ear canal(s): are normal, clear, TM's: dullness, bilaterally, Nose: is normal, Mouth: Lips: moist, Oral mucosa: pink and intact, moist, Posterior pharynx: Airway: no evidence of obstruction, patent. 12:10 Neck: C-spine: vertebral tenderness, is not appreciated, crepitus, is not appreciated, ROM/movement: is normal, is supple, without pain, no range of motions limitations. 12:10 Chest/axilla: Inspection: normal, Palpation: is normal, no crepitus, no tenderness. 12:10 Cardiovascular: Rate: normal, Rhythm: regular. 12:10 Respiratory: the patient does not display signs of respiratory distress, Respirations: normal, no use of accessory muscles, no retractions, labored breathing, is not present, Breath sounds: are clear throughout, no decreased breath sounds, no stridor, no wheezing. 12:10 Abdomen/GI: Inspection: abdomen appears normal, Palpation: abdomen is soft and non-tender, in all quadrants. 12:10 Back: pain, is absent, ROM is normal. 12:10 Musculoskeletal/extremity: Exam is negative for decreased range of motion, deformity, injury. 12:10 Neuro: Orientation: to person, place \T\ time. Mentation: is normal, Motor: moves all fours, strength is normal. Vital Signs: 11:45 BP 95 / 69 Supine; Pulse 68; hb 11:47 BP 96 / 69; Pulse 82; Resp 14; Temp 97.2; Pulse Ox 99% on R/A; Pain 10/10; mb8 12:00 BP 116 / 66 Sitting; Pulse 70; hb 12:05 BP 93 / 69 Standing; Pulse 81; hb 12:05 c/o dizziness when standing hb MDM: 11:53 Patient medically screened. cp 12:38 Data reviewed: vital signs, nurses notes, and as a result, I will discharge patient. cp 12:38 Differential diagnosis: migraine, tension headache, traumatic injuries. Counseling: I cp had a detailed discussion with the patient and/or guardian regarding: the historical points, exam findings, and any diagnostic results supporting the discharge/admit diagnosis, to return to the emergency department if symptoms worsen or persist or if there are any questions or concerns that arise at home. 08/20 11:59 Order name: Orthostatics; Complete Time: 12:15 cp Administered Medications: 12:15 Drug: Tylenol 650 mg Route: PO; hb Disposition Summary: 08/20/22 12:38 Discharge Ordered Location: Home cp Problem: new cp Symptoms: have improved cp Condition: Stable cp Diagnosis - Headache cp Followup: cp - With: Private Physician - When: 1 - 2 days - Reason: Recheck today's complaints Forms: - Medication Reconciliation Form cp - Thank You Letter cp - Antibiotic Education cp - Prescription Opioid Use cp Addendum: 08/24/2022 09:33 Co-signature as Attending Physician, Jefry Pathak DO I was immediately available on-site m s3 in the Emergency Department for consultation in the care of the patient. Signatures: Keshawn Schilling PA PA cp Brenda Sanchez, RN RN Saqib Pederson RN RN jl7 Jefry Pathak DO DO ms3 Gianni Flynn RN RN mb8
--- NOTE | 2022-08-20 12:39 | ER ---
Nurse's Notes [facility] Name: Tahir Ag Jr Age: 37 yrs Sex: Male : 1985 Arrival Date: 08/20/2022 Time: 11:46 Bed IW9 Private MD: Diagnosis: Headache Presentation: 08/20 11:47 Chief complaint: Patient states: he got dizzy and passed out. Reports having a 1010 mb8 headache. Denies any n/v/d. Coronavirus screen: Vaccine status: Patient reports receiving the 2nd dose of the covid vaccine. Ebola Screen: Patient negative for fever greater than or equal to 101.5 degrees Fahrenheit, and additional compatible Ebola Virus Disease symptoms Patient denies exposure to infectious person. Patient denies travel to an Ebola-affected area in the 21 days before illness onset. Initial Sepsis Screen: Does the patient meet any 2 criteria? No. Patient's initial sepsis screen is negative. Does the patient have a suspected source of infection? No. Patient's initial sepsis screen is negative. Risk Assessment: Do you want to hurt yourself or someone else? Patient reports no desire to harm self or others. Onset of symptoms was August 20, 2022. 11:47 Method Of Arrival: EMS: [facility] mb8 11:47 Acuity: MARTINA 3 mb8 Triage Assessment: 11:50 General: Appears in no apparent distress. Behavior is calm, cooperative, appropriate mb8 for age. 11:50 Pain: Also complains of no other associated symptoms. mb8 11:50 Headache History: Denies prior headaches. mb8 Historical: - Allergies: 11:48 No Known Allergies; mb8 - PMHx: 11:48 achalasia; Bipolar disorder; Diabetes - NIDDM; Hernia; Hypertension; Schizophrenia; mb8 Seizure; - PSHx: 11:48 gastrostomy tube; mb8 - Immunization history:: Adult Immunizations unknown. - Social history:: Smoking status: Patient reports the use of cigarette tobacco products. Screenin:49 Abuse screen: Denies threats or abuse. Denies injuries from another. Nutritional mb8 screening: tube feeding. Tuberculosis screening: No symptoms or risk factors identified. Fall Risk Fall in past 12 months (25 points). Secondary diagnosis (15 points) No IV (0 pts). Ambulatory Aid- None/Bed Rest/Nurse Assist (0 pts). Gait- Weak (10 pts.). Mental Status- Oriented to own ability (0 pts). Total [place] Fall Scale indicates High Risk Score (45 or more points). Fall prevention measures have been instituted. Side Rails Up X 2 Placed Close to Nursing Station Frequent Obs/Assessments Occuring As available patient and family educated on Fall Prevention Program and Strategies. Assessment: 11:48 Pain: Complains of pain in head Pain does not radiate. Pain currently is 10 out of 10 mb8 on a pain scale. Quality of pain is described as aching. 11:49 Neuro: Reports headache. mb8 12:36 Reassessment: Pt noted to walk out of the ED, stated "I'm leaving." Provider notified. jl7 Vital Signs: 11:45 BP 95 / 69 Supine; Pulse 68; hb 11:47 BP 96 / 69; Pulse 82; Resp 14; Temp 97.2; Pulse Ox 99% on R/A; Pain 10/10; mb8 12:00 BP 116 / 66 Sitting; Pulse 70; hb 12:05 BP 93 / 69 Standing; Pulse 81; hb 12:05 c/o dizziness when standing hb ED Course: 11:46 Patient arrived in ED. mb8 11:48 Triage completed. mb8 11:48 Arm band placed on. mb8 11:50 Patient has correct armband on for positive identification. Placed in gown. Bed in low mb8 position. Call light in reach. Side rails up X2. Client placed on continuous cardiac and pulse oximetry monitoring. NIBP monitoring applied. stoneworking sander on. 11:50 No provider procedures requiring assistance completed. mb8 11:52 Keshawn Schilling PA is PHCP. cp 11:52 Jefry Pathak DO is Attending Physician. cp 12:36 Patient did not have IV access during this emergency room visit. jl7 Administered Medications: 12:15 Drug: Tylenol 650 mg Route: PO; hb Medication: 11:49 VIS not applicable for this client. mb8 Outcome: 12:36 AMA Left before signing form. jl7 12:38 Discharge ordered by . cp 13:01 Patient left the ED. jl7 Signatures: Keshawn Schilling PA PA cp Baxter, Heather, RN RN Saqib Pederson RN RN jl7 Gianni Flynn RN RN mb8 Corrections: (The following items were deleted from the chart) 11:49 11:48 Neuro: No deficits noted. mb8 mb8
[2022-08-20 13:20] VITALS: TEMP 97.2; O2SAT 99
[2022-08-20 13:22] VITALS: BP 93/69
== END 2022-08-20 13:01 | disposition home or self-care (01) ==
LOC: ER 11:42
DX: R51.9 Headache, unspecified (principal)
CPT/HCPCS: 99284

== ENCOUNTER 2022-08-31 07:44 | Emergency (ER) | payer OTHER ==
--- OUTSIDE RECORDS SUMMARY | 2022-08-31 07:58 | XMS REPORT | Continuity of Care Document ---
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 at 0815, Routine NaCl 0.9% Yes 10mL 10 mL, [...] by ity of tablet 04:28: mouth at [place] 41 bedtime. Medical Branch piperacilli 2021- Yes [...] dose Bran ch (NS) 100 mL on [facility] MINI-BAG 07/11/22 at 2245, Last dose on [...] mL Infusion, Branch CONTINUOUS , Starting on [place] 07/11/22 at 1800, Until Tue07/12/22 at 0736, Routine lactated 2021- No 1000[facility] at [facility] 07-11 mL/hr, ity of infusion 21:45: 12:36 1,000 mL, [place] 1,000 mL 00 :19 IV Medical Infusion, Branch CONTINUOUS , Starting on Hext 07/11/22 at 1645, Until Tue07/12/22 at 0736, Routine, PACU bupivacaine 2021- No PRN, [facility] (preserv 07-11 Starting ity of free) 20:58: 22:05 on [facility] (SENSORCAIN 00 :02 07/11/22 at Ks dical E MPF) 0.25 1558, Branch % (2.5 Intra-op mg/mL) 30 mL, bupivacaine liposome (PF) (EXPAREL (PF)) 1.3 % (13.3 mg/mL) 266 mg, NaCl 0.9% (NS) 100 mL methocarbam Yes 1000mg 1,000 mg, Univers oL 07-11 Intravenou ity of (ROBAXIN) 19:00: s, Q8H, [place] injection 00 First dose Medi erendira 1,000 mg on [place] Branch 07/11/22 at 1400, Until Discontinu ed, Routine methocarbam 2021- No 1000mg 1,000 mg, Univers oL 07-11 Intravenou ity of (ROBAXIN) 19:00: 19:30 s, Q8H, [place] injection 00 :13 First dose [facility] erendira 1,000 mg on [facility] 07/11/22 at 1400, Until Discontinu ed, Routine acetaminoph 2021- No 1000mg 1,000 mg, Univers en ADULT 07-11 IV ity of (OFIRMEV) 19:00: 11:05 Infusion, [place] injection 00 :00 at 400 Medical 1,000 mg mL/hr [place] Administer over 15 Minutes, Q8H, 3 doses, First dose on He[place] 07/11/22 at 1400, Last dose on [facility] 07/12/22 at 0600, Routine
Indicatio n: Perioperat maria del rosario Patient sodium 2021- No PRN, Univers chloride 07-11 Starting ity of 0.9 % 19:00: 22:05 on [facility] irrigation 00 :02 07/11/22 at Med ical solution 1400, Branch Until [place] 07/11/22 at 1705, Intra-op diatrizoate 2021- No [id number] 120mL 120 mL, Univers mayi-diatriz 07-11 Oral, ity of oat sod 00:00: 23:54 ONCE, 1 [place] (GASTROGRAF 00 :00 dose, On Medi erendira IN) 66-10 % [facility] oral 07/10/22 at solution 1900, 120 mL Routine KCL Yes 40meq 40 mEq, Univers (KLOR-CON 07-10 Oral, ity of M20) tablet 14:00: DAILY, [place] 40 mEq 00 First dose Medical on [facility] 07/10/22 at 0900, Until Discontinu ed, Routine enoxaparin Yes 30mg 30 mg, Unive rs (LOVENOX) 07-10 Subcutaneo ity of injection 14:00: [place], DAILY, [place] 30 mg 00 First dose Medical on [facility] 07/10/22 at 0900, Until Discontinu ed, [...] 10 mEq First dose Bra nch on [facility] 07/10/22 at 0830, Last dose on [facility] 07/10/22 at 1100, Administer over 60 Minutes, 100 mL pantoprazol Yes 40mg 40 mg, Univ ers e 07-10 Slow IV ity of (PROTONIX) 10:15: Push, [place] injection 00 Q24H, Medical 40 mg First dose Branch on [facility] 07/10/22 at 0515, Until Discontinu ed pantoprazol Yes 40mg 40 mg, Univ ers e 07-10 Slow IV ity of (PROTONIX) 10:15: Push, [place] injection 00 Q24H, Medical 40 mg First dose Branch on [facility] 07/10/22 at 0515, Until Discontinu ed Vancomycin 2021- Yes 750mg 750 mg, IV Univers 750 mg in 07-10 Piggyback, ity of NaCl 0.9% 10:00: 09:59 Q24H ABX, [place] (NS) 250 mL 00 :00 10 doses, Med ical VIAL-j2ee architect dose Bran ch on 07/10/22 at 0500, [...] mL 00 :26 10 doses, Med ical VIAL-j2ee architect dose Bran ch on Tue07/10/22 at 0500, [...] [place] as mg 44 Starting Medical on [facility] 07/10/22 at 0021, Until Discontinu ed, Routine, Chest pain, Pain (scale 7-10) morpHINE (2 2021- No 1mg 1 mg, Slow Univers mg/mL) 07-10 IV Push, ity of injection 1 05:21: 00:53 Q6HPRN, [place] mg 44 :24 Starting Medical on [facility] Branch 07/10/22 at 0021, Until Tu07/13/22 at 1953, Routine, Chest pain, Pain (scale 7-10) valproic Yes Take by [facility] s acid, as 07-10 mouth. Pt ity of sodium 03:56: unaware of [place] salt, 08 dosage Medical (DEPAKENE Branch ORAL) paliperidon Yes by [place] s e palmitate 07-10 Intramuscu it y [...] dose, On Tue07/09/22 at 2100, Routine potassium 2021- No 10meq 10 mEq, IV Univers chloride in 07-10 Piggyback, i ty of water 10 02:00: 04:34 Q1H, 3 [place] mEq/100 mL 00 :00 doses, Medical RTU 10 mEq First dose [facility] on Tue07/09/22 at 2100, Last dose on [...] 00 :00 dose, On Medi erendira mg [facility] Branch 07/09/22 at 1900, ROBERTO potassium 2021- No 10meq 10 mEq, IV Univers chloride in 05-27 Piggyback, i ty of water 10 03:00: 03:05 ONCE, 1 [place] mEq/100 mL 00 :00 dose, On Medic al RTU 10 mEq 05/26/22 [facility] at 2200, Administer over 60 Minutes, 100 mL KCL 20 2021- No 40meq 40 mEq, Univer s mEq/15 mL 05-27 Oral, ity of solution 40 03:00: 02:10 ONCE, 1 [place] mEq 00 :00 dose, On Medical Tue05/26/22 Branch at 2200, Routine ondansetron 0 2021- No 8mg 8 mg, Slow Univers [...] mg at 2015, Routine ondansetron 2021-0 Yes [id number] 8mg Take 1 Univers 8 mg 8-03 tablet by ity of disintegrat 00:00: mouth [place] ing tablet 00 every 8 Medica l (eight) Branch hours as needed for Nausea and Vomiting (N/V). ondansetron 2021-0 Yes [id number] 8mg Take 1 Univers 8 mg 8-03 tablet by ity of disintegrat 00:00: mouth [place] ing tablet 00 every 8 Medica l (eight) Branch hours as needed for Nausea and Vomiting (N/V). ondansetron 2-0 Yes [id number] 8mg Take 1 Univers 8 mg 8-03 tablet by ity of disintegrat 00:00: mouth [place] ing tablet 00 every 8 Medica l (eight) Branch hours as needed for Nausea and Vomiting (N/V). ondansetron 2-0 Yes [id number] 8mg Take 1 Univers 8 mg 8-03 tablet by ity of disintegrat 00:00: mouth [place] ing tablet 00 every 8 Medica l (eight) Branch hours as needed for Nausea and Vomiting (N/V). ondansetron 2-0 Yes [id number] 8mg Take 1 Univers 8 mg 8-03 tablet by ity of disintegrat 00:00: mouth [place] ing tablet 00 every 8 Medica l (eight) Branch hours as needed for Nausea and Vomiting (N/V). ondansetron 2-0 Yes [id number] 8mg Take 1 Univers 8 mg 8-03 tablet by ity of disintegrat 00:00: mouth [place] ing tablet 00 every 8 Medica l (eight) Branch hours as needed for Nausea and Vomiting (N/V). ondansetron 2-0 Yes [id number] 8mg Take 1 Univers 8 mg 8-03 tablet by ity of disintegrat 00:00: mouth [place] ing tablet 00 every 8 Medica l (eight) Branch hours as needed for Nausea and Vomiting (N/V). ondansetron 2-0 Yes [id number] 8mg Take 1 Univers 8 mg 8-03 tablet by ity of disintegrat 00:00: mouth [place] ing tablet 00 every 8 Medica l (eight) Branch hours as needed for Nausea and Vomiting (N/V). ondansetron 2-0 Yes [id number] 8mg Take 1 Univers 8 mg 8-03 tablet by ity of disintegrat 00:00: mouth [place] ing tablet 00 every 8 Medica l (eight) Branch hours as needed for Nausea and Vomiting (N/V). ondansetron 2022-0 Yes [id number] 8mg Take 1 Univers 8 mg 8-03 tablet by ity of disintegrat 00:00: mouth [place] ing tablet 00 every 8 Medica l (eight) Branch hours as needed for Nausea and Vomiting (N/V). ondansetron Yes [id number] 8mg Take 1 Univers 8 mg 8-03 tablet by ity of disintegrat 00:00: mouth [place] ing tablet 00 every 8 Medica l (eight) Branch hours as needed for Nausea and Vomiting (N/V). ondansetron Yes [id number] 8mg Take 1 Univers 8 mg 8-03 tablet by ity of disintegrat 00:00: mouth [place] ing tablet 00 every 8 Medica l (eight) Branch hours as needed for Nausea and Vomiting (N/V). ondansetron Yes [id number] 8mg Take 1 Univers 8 mg 8-03 tablet by ity of disintegrat 00:00: mouth [place] ing tablet 00 every 8 Medica l (eight) Branch hours as needed for Nausea and Vomiting (N/V). ondansetron Yes [id number] 8mg Take 1 Univers 8 mg 8-03 tablet by ity of disintegrat 00:00: mouth [place] ing tablet 00 every 8 Medica l (eight) Branch hours as needed for Nausea and Vomiting (N/V). ondansetron 2021- No [id number] 8mg Take 1 Univers 8 mg 8-03 11-02 tablet by ity of disintegrat 00:00: 00:00 mouth [place] ing tablet 00 :00 every 8 Medica l (eight) Branch hours as needed for Nausea and Vomiting (N/V). pantoprazol 2021-2021- No [id number] 40mg Take 20 mL Univers e 2 mg/mL 05-26 through ity of oral 00:00: 04:59 enteral [place] suspension 00 :00 tube in Medica l the Branch morning for 30 days. pantoprazol 2021- No [id number] 40mg Take 20 mL Univers e 2 [...] QHSPRN, [place] 09 Starting Medical on [place] Branch 05/02/22 at 2351, Until Discontinu ed, Routine, insomia nicotine Yes 1{patch 1 Patch, Un buck (NICODERM) 05-01 } Topical, ity o f 14 mg/24 hr 20:00: Administer [place] patch 1 00 over 24 Medical Patch Hours, Branch Q24H, First dose on [facility] 05/01/22 at 1500, Until Discontinu ed, Routine morpHINE (2 2021-2021- No 2mg 2 mg, Slow Univers mg/mL) 05-01 IV Push, ity of injection 2 03:21: 03:20 Q4HPRN, [place] mg 37 :37 Starting Medical on Tue Branch 04/30/22 at 2221, Until Hext 05/02/22 at 2220, Routine, Pain (scale 7-10) morpHINE [...] 40meq 40 mEq, Univer s mEq/15 mL 04-2705 Enteral, ity o f solution 40 20:00: [...] at 0800, Until Discontinu ed, Routine heparin 0 Yes 5000U 5,000 Univers (porcine) 04-27 Units, [...] IV Push, ity of (PF)) 03:10: Q6HPRN, [place] injection 4 38 Starting Medi erendira mg on Tue04/26/22 at 2210, Until Discontinu ed, Routine, Nausea and Vomiting (N/V) ondansetron Yes 4mg 4 mg, Slow Univers (ZOFRAN 7-05 IV Push, ity of (PF)) 03:10: Q6HPRN, [place] injection 4 38 Starting Medi erendira mg on Tue04/26/22 at 2210, Until Discontinu ed, Routine, Nausea and Vomiting (N/V) morpHINE (2 2021- No 2mg 2 mg, Slow Univers mg/mL) 04-27 0706 IV Push, ity of injection 2 03:10: 02:18 Q4HPRN, [place] mg 30 :17 Starting Medical on Tue04/26/22 at 2210, Until Tue04/27/22 at 2118, Routine, Pain (scale 7-10) NaCl 0.9% 0 2021- No 1000mL at 999 Uni vers [...] dose, On Medical mEq/100 mL Tue04/26/22 Bra [facility] RTU IVPB 20 at 1930, mEq 100 [...] Branch at 1830, STAT iopamidol 2021- No [id number] 50mL 50 mL, U nivers (ISOVUE 04-26 Intravenou ity o f 370-500 mL) 22:57: 22:57 s, ONCE, 1 [place] injection 00 :00 dose, On Medica l 50 mL Tue04/26/22 Branch at 1815, Routine valproic Yes Take by [facility] s acid, as - mouth. Pt ity of sodium 21:06: unaware of [place] salt, 35 dosage Medical (DEPAKENE Branch ORAL) paliperidon Yes by Univer s e palmitate 04-26 Intramuscu it y of (INVEGA 21:06: lar route [place] TRINZA IM) 35 once every Med ical month. Branch Takes monthly on the valproic Yes Take by [facility] s acid, as 04-26 mouth. Pt ity [...] month. Branch Takes monthly on the ibuprofen 0 Yes [id number] 200mg Take 10 mL Univers 100 mg/5 mL 5-20 by mouth 3 it y of oral 00:00: (three) [place] suspension 00 times Medical daily with Branch meals. ibuprofen 2022-0 Yes [id number] 200mg Take 10 mL Univers 100 mg/5 mL 5-20 by mouth 3 it y of oral 00:00: (three) [place] suspension 00 times Medical daily with Branch meals. ibuprofen 2022-0 Yes [id number] 200mg Take 10 mL Univers 100 mg/5 mL 5-20 by mouth 3 it y of oral 00:00: (three) [place] suspension 00 times Medical daily with Branch meals. ibuprofen 2022-0 Yes [id number] 200mg Take 10 mL Univers 100 mg/5 mL 5-20 by mouth 3 it y of oral 00:00: (three) [place] suspension 00 times Medical daily with Branch meals. ibuprofen 2022-0 Yes [id number] 200mg Take 10 mL Univers 100 mg/5 mL 5-20 by mouth 3 it y of oral 00:00: (three) [place] suspension 00 times Medical daily with Branch meals. ibuprofen 2022-0 Yes [id number] 200mg Take 10 mL Univers 100 mg/5 mL 5-20 by mouth 3 it y of oral 00:00: (three) [place] suspension 00 times Medical daily with Branch meals. ibuprofen 2022-0 Yes [id number] 200mg Take 10 mL Univers 100 mg/5 mL 5-20 by mouth 3 it y of oral 00:00: (three) [place] suspension 00 times Medical daily with Branch meals. ibuprofen 2022-0 Yes [id number] 200mg Take 10 mL Univers 100 mg/5 mL 5-20 by mouth 3 it y of oral 00:00: (three) [place] suspension 00 times Medical daily with Branch meals. ibuprofen 2022-0 Yes [id number] 200mg Take 10 mL Univers 100 mg/5 mL 5-20 by mouth 3 it y of oral 00:00: (three) [place] suspension 00 times Medical daily with Branch meals. ibuprofen 2022-0 Yes [id number] 200mg Take 10 mL Univers 100 mg/5 mL 5-20 by mouth 3 it y of oral 00:00: (three) [place] suspension 00 times Medical daily with Branch meals. ibuprofen 2022-0 Yes [id number] 200mg Take 10 mL Univers 100 mg/5 mL 5-20 by mouth 3 it y of oral 00:00: (three) [place] suspension 00 times Medical daily with Branch meals. ibuprofen 2022-0 Yes [id number] 200mg Take 10 mL Univers 100 mg/5 mL 5-20 by mouth 3 it y of oral 00:00: (three) [place] suspension 00 times Medical daily with Branch meals. ibuprofen 2022-0 Yes [id number] 200mg Take 10 mL Univers 100 mg/5 mL 5-20 by mouth 3 it y of oral 00:00: (three) [place] suspension 00 times Medical daily with Branch meals. ibuprofen 2022-0 Yes [id number] 200mg Take 10 mL Univers 100 mg/5 mL 5-20 by mouth 3 it y of oral 00:00: (three) [place] suspension 00 times Medical daily with Branch meals. ibuprofen 2022-0 Yes [id number] 200mg Take 10 mL Univers 100 mg/5 mL 5-20 by mouth 3 it y of oral 00:00: (three) [place] suspension 00 times Medical daily with Branch meals. ibuprofen 2022-0 Yes [id number] 200mg Take 10 mL Univers 100 mg/5 mL 5-20 by mouth 3 it y of oral 00:00: (three) [place] suspension 00 times Medical daily with Branch meals. ibuprofen 2022-0 Yes [id number] 200mg Take 10 mL Univers 100 mg/5 mL 5-20 by mouth 3 it y of oral 00:00: (three) [place] suspension 00 times Medical daily with Branch meals. ibuprofen 2-0 Yes [id number] 200mg Take 10 mL Univers 100 mg/5 mL 5-20 by mouth 3 it y of oral 00:00: (three) [place] suspension 00 times Medical daily with Branch meals. ibuprofen 2-0 Yes [id number] 200mg Take 10 mL Univers 100 mg/5 mL 5-20 by mouth 3 it y of oral 00:00: (three) [place] suspension 00 times Medical daily with Branch meals. ibuprofen 2-0 Yes [id number] 200mg Take 10 mL Univers 100 mg/5 mL 5-20 by mouth 3 it y of oral 00:00: (three) [place] suspension 00 times Medical daily with Branch meals. ibuprofen 2-0 2022- No [id number] 200mg Take 10 mL Univers 100 mg/5 mL 5-20 11-02 by mouth 3 i ty of oral 00:00: 00:00 (three) [place] suspension 00 :00 times Medical daily with Branch meals. Immunizations Ordered Filled Immunization Date Status Comments [facility] Immunization Name Name SARS-COV-2 COVID-19 2021-09-22 Completed Unive rsity of PFIZER VACCINE 00:00:00 [facility] SARS-COV-2 COVID-19 2021-09-22 Completed Unive rsity of PFIZER VACCINE 00:00:00 [facility] SARS-COV-2 COVID-19 2021-09-22 Completed Unive rsity of PFIZER VACCINE 00:00:00 [facility] SARS-COV-2 COVID-19 2021-09-22 Completed Unive rsity of PFIZER VACCINE 00:00:00 [facility] SARS-COV-2 COVID-19 2021-09-22 Completed Unive rsity of PFIZER VACCINE 00:00:00 [facility] SARS-COV-2 COVID-19 2021-09-22 Completed Unive rsity of PFIZER VACCINE 00:00:00 [facility] SARS-COV-2 COVID-19 2021-09-22 Completed Unive rsity of PFIZER VACCINE 00:00:00 [facility] SARS-COV-2 COVID-19 2021-09-22 Completed Unive rsity of PFIZER VACCINE 00:00:00 [facility] SARS-COV-2 COVID-19 2021-09-22 Completed Unive rsity of PFIZER VACCINE 00:00:00 [facility] SARS-COV-2 COVID-19 2021-09-22 Completed Unive rsity of PFIZER VACCINE 00:00:00 [facility] SARS-COV-2 COVID-19 2021-09-22 Completed Unive rsity of PFIZER VACCINE 00:00:00 [facility] SARS-COV-2 COVID-19 2021-09-22 Completed Unive rsity of PFIZER VACCINE 00:00:00 [facility] SARS-COV-2 COVID-19 2021-09-22 Completed Unive rsity of PFIZER VACCINE 00:00:00 [facility] SARS-COV-2 COVID-19 2021-09-22 Completed Unive rsity of PFIZER VACCINE 00:00:00 [facility] SARS-COV-2 COVID-19 2021-09-22 Completed Unive rsity of PFIZER VACCINE 00:00:00 [facility] SARS-COV-2 COVID-19 2021-09-22 Completed Unive rsity of PFIZER VACCINE 00:00:00 [facility] SARS-COV-2 COVID-19 2021-09-22 Completed Unive rsity of PFIZER VACCINE 00:00:00 [facility] SARS-COV-2 COVID-19 2021-09-22 Completed Unive rsity of PFIZER VACCINE 00:00:00 [facility] SARS-COV-2 COVID-19 2021-09-22 Completed Unive rsity of PFIZER VACCINE 00:00:00 [facility] SARS-COV-2 COVID-19 2021-09-22 Completed Unive rsity of PFIZER VACCINE 00:00:00 [facility] SARS-COV-2 COVID-19 2021-09-22 Completed Unive rsity of PFIZER VACCINE 00:00:00 [facility] SARS-COV-2 COVID-19 2021-09-22 Completed Unive rsity of PFIZER VACCINE 00:00:00 [facility] Influenza Virus 2020-08-30 Completed Universit y of Vaccine Quad .5 mL 00:00:00 [facility] IM 6+ MO Branch Pneumococcal 2020-08-30 Completed [...] y of Vaccine Quad .5 mL 00:00:00 [place] [facility] IM 6+ MO Branch Pneumococcal 2020-08-30 Completed University o f Polysaccharide, 00:00:00 [place] Med ical PPSV23 (PNEUMOVAX) Branch Influenza Virus 2020-08-30 Completed Universit y of Vaccine Quad .5 mL 00:00:00 [place] [facility] IM 6+ MO Branch Pneumococcal 2020-08-30 Completed University o f Polysaccharide, 00:00:00 [place] Med ical PPSV23 (PNEUMOVAX) Branch Influenza Virus 2020-08-30 Completed Universit y of Vaccine Quad .5 mL 00:00:00 [place] [facility] IM 6+ MO Branch Pneumococcal 2020-08-30 Completed University o f Polysaccharide, 00:00:00 [place] Med ical PPSV23 (PNEUMOVAX) Branch Influenza Virus 2020-08-30 Completed Universit y of Vaccine Quad .5 mL 00:00:00 [place] [facility] IM 6+ MO Branch Pneumococcal 2020-08-30 [...] .5 mL 00:00:00 [facility] IM 6+ MO Branch Pneumococcal 2020-08-30 Completed University o f Polysaccharide, 00:00:00 [place] Med ical PPSV23 (PNEUMOVAX) Branch Influenza Virus 2020-08-30 Completed Universit y of Vaccine Quad .5 mL 00:00:00 [facility] IM 6+ MO Branch Pneumococcal 2020-08-30 Completed University o f Polysaccharide, 00:00:00 [place] Med ical PPSV23 (PNEUMOVAX) Branch Influenza Virus 2020-08-30 Completed Universit y of Vaccine Quad .5 mL 00:00:00 [facility] 6+ MO Branch Pneumococcal 2020-08-30 Completed University o f Polysaccharide, 00:00:00 [place] Med ical PPSV23 (PNEUMOVAX) Branch Influenza Virus 2020-08-30 Completed Universit y of Vaccine Quad .5 mL 00:00:00 [facility] 6+ MO Branch Pneumococcal 2020-08-30 Completed University o f Polysaccharide, 00:00:00 [place] Med ical PPSV23 (PNEUMOVAX) [place] Vital Signs Vital Name Observation Time Observation Value Comments Source Systolic blood 2022-08-25 16:24:00 103 [facility] Diastolic blood 2022-08-25 16:24:00 71 mm[Hg] Unive [facility] Heart rate 2022-08-25 16:24:00 79 /min [facility] Body temperature 2022-08-25 16:24:00 36.56 [facility] 2022-08-25 16:24:00 18 /min [facility] Oxygen saturation in 2022-08-25 16:24:00 95 /min [facility] Arterial blood by [facility] Pulse oximetry Branch Body weight 2022-08-24 17:00:00 41.1 kg [facility] BMI 2022-08-24 17:00:00 15.08 kg/m2 [facility] Body height 2022-08-24 06:49:00 165.1 cm [facility] Systolic blood 2022-08-23 18:30:00 81 mm[Hg] Univer sity of pressure [place] [facility] Diastolic blood 2022-08-23 18:30:00 51 mm[Hg] Unive rsity of pressure [place] [facility] Heart rate 2022-08-23 18:30:00 69 /min Universi ty of [place] [facility] [place] Body temperature 2022-08-23 18:30:00 35.56 Maude Univ ersity of [place] [facility] Body height 2022-08-23 18:30:00 165.1 cm Universi ty [facility] [place] [facility] Body weight 2022-08-23 18:30:00 36.288 kg Universi ty of [place] [facility] BMI 2022-08-23 18:30:00 13.31 kg/m2 Universi ty [facility] [place] [facility] Systolic blood 2022-08-10 13:09:00 96 mm[Hg] Univer sity of pressure [place] [facility] Diastolic blood 2022-08-10 13:09:00 66 mm[Hg] Unive rsity of pressure [place] [facility] Heart rate 2022-08-10 13:09:00 75 /min Universi ty [facility] [place] [facility] [place] Body temperature 2022-08-10 13:09:00 34.28 Maude Univ ersity of [place] [facility] [place] Body height 2022-08-10 13:09:00 165.1 cm Universi ty [facility] [place] [facility] Body weight 2022-08-10 13:09:00 35.607 kg [facility]i ty [facility] [place] [facility] [place] BMI 2022-08-10 13:09:00 13.06 kg/m2 [facility]i ty [facility] [place] [facility] Systolic blood 2022-07-20 20:33:00 101 mm[Hg] Univer sity of pressure [place] [facility] Diastolic blood 2022-07-20 20:33:00 49 mm[Hg] Unive rsity of pressure [place] [facility] Heart rate 2022-07-20 20:33:00 67 /min Universi ty [facility] [place] [facility] Body temperature 2022-07-20 20:33:00 36.11 Maude Univ ersity of [place] [facility] Respiratory rate 2022-07-20 20:33:00 18 /min Univ ersity of [facility] Oxygen saturation in 2022-07-20 20:33:00 97 /min University of Arterial blood by [facility] Pulse oximetry Branch Body weight 2022-07-20 02:15:00 41.277 kg [facility]i ty [facility] [place] [facility] BMI 2022-07-20 02:15:00 15.14 kg/m2 [facility] [place] [facility] Body height 2022-07-10 02:38:00 165.1 cm Universi ty [facility] [place] [facility] Systolic blood 2022-07-12 02:00:00 108 mm[Hg] Univer sity of pressure [place] [facility] Diastolic blood 2022-07-12 02:00:00 52 mm[Hg] Unive rsity of pressure [place] [facility] Heart rate 2022-07-12 02:00:00 96 /min Universi ty [facility] [place] [facility] Body temperature 2022-07-12 02:00:00 36.67 Maude Univ ersity of [place] [facility] Respiratory rate 2022-07-12 02:00:00 25 /min Univ ersity of [place] [facility] Oxygen saturation in 2022-07-12 02:00:00 94 /min University of Arterial blood by [employer] Pulse oximetry Branch Body weight 2022-07-11 08:23:00 35.97 kg Universi ty [facility] [place] [facility] BMI 2022-07-11 08:23:00 12.83 kg/m2 [facility] [place] [facility] Body height 2022-07-10 02:38:00 165.1 cm [facility]i ty [facility] [place] [facility] Systolic blood 2022-05-27 03:00:00 94 mm[Hg] Univer sity of pressure [place] [facility] Diastolic blood 2022-05-27 03:00:00 69 mm[Hg] Unive rsity of [facility] Heart rate 2022-05-27 03:00:00 73 /min [facility] Respiratory rate 2022-05-27 03:00:00 18 /min [facility] Oxygen saturation in 2022-05-27 03:00:00 100 /min University of Arterial blood by [place] [facility] Pulse oxim[facility] Branch Body temperature 2022-05-27 00:00:00 36.67 Maude [facility] Body height 2022-05-27 00:00:00 165.1 cm [facility] Body weight 2022-05-27 00:00:00 44.453 kg [facility] BMI 2022-05-27 00:00:00 16.31 kg/m2 [facility] Systolic blood 2022-05-04 13:19:00 100 mm[Hg] Univer sity of [facility] Diastolic blood 2022-05-04 13:19:00 66 mm[Hg] Unive rsity of pressure [facility] Heart rate 2022-05-04 13:19:00 60 /min [facility] Body temperature 2022-05-04 13:19:00 36.83 Maude [facility] Respiratory rate 2022-05-04 13:19:00 14 /min [facility] Oxygen saturation in 2022-05-04 13:19:00 98 /min [facility] of Arterial blood by [facility] [employer] [facility] Body weight 2022-04-29 08:40:00 41.958 kg [facility] BMI 2022-04-29 08:40:00 15.39 kg/m2 [facility] Body height 2022-04-27 02:59:00 165.1 cm [facility] Systolic blood 2022-04-28 14:24:00 112 mm[Hg] Univer sity of [facility] Diastolic blood 2022-04-28 14:24:00 77 mm[Hg] Unive rsity of pressure [facility] Heart rate 2022-04-28 14:24:00 51 /min [facility] Body temperature 2022-04-28 14:24:00 36.56 Maude [facility] Respiratory rate 2022-04-28 14:24:00 16 /min [facility] Oxygen saturation in 2022-04-28 14:24:00 98 /min [facility] of Arterial blood by [place] [employer] erend[facility] Body weight 2022-04-28 09:16:00 43.999 kg [facility] BMI 2022-04-28 09:16:00 15.39 kg/m2 [facility] Body height 2022-04-27 02:59:00 165.1 cm [facility] Diastolic blood 2022-04-28 16:55:00 74 mm[Hg] Unive rsity of [facility] Heart rate 2022-04-28 16:55:00 55 /min [facility] Body temperature 2022-04-28 16:55:00 36.39 Maude [facility] 2022-04-28 16:55:00 15 /min [facility] Oxygen saturation in 2022-04-28 16:55:00 96 /min [facility] Arterial blood by [facility] Pulse oximetry Branch Systolic blood 2022-04-28 16:55:00 111 mm[Hg] Univer sity of pressure [facility] Body weight 2022-04-28 09:16:00 43.999 kg [facility] BMI 2022-04-28 09:16:00 16.14 kg/m2 [facility] Body height 2022-04-27 02:59:00 165.1 cm [facility] Procedures Procedure Date / Time Performing Source Performed Clinician BASIC METABOLIC PANEL (NA, K, CL, [facility], GLUCOSE, BUN, CREATININE, [place]) 10:44:00 [facility] US ABDOMEN LIMITED 2022-08-25 [facility] of 01:10:19 [facility] BASIC METABOLIC PANEL (NA, K, CL, 2022-08-24 Dillon, [facility] of CO2, GLUCOSE, BUN, CREATININE, CA) 21:56:[address] [facility] CT ABDOMEN PELVIS W CONTRAST 2022-08-24 Silas Briones U niversity of 17:42:15 [facility] POCT GLUCOSE (AUTOMATED) 2022-08-24 Nupur Sandoval [facility] ity of 16:45:00 [facility] PHOSPHORUS 2022-08-24 Jaime [facility] of 10:14:00 [facility] MAGNESIUM 2022-08-24 Jaime, [facility] of 10:14:00 [facility] TROPONIN I 2022-08-[address] [facility] of 10:14:00 [facility] LACTIC ACID WHOLE BLOOD 2022-08-24 Nupur Sandoval [facility] ty of 10:13:00 [facility] MRSA / MSSA SCREEN BY PCR, CLAUDIA 2022-08-[address] [facility] of 09:32:00 [facility] COMP. METABOLIC PANEL ([id number]) 2022-08-24 Nupur Sandoval Un iversity of 08:36:00 [facility] POCT GLUCOSE (AUTOMATED) 2022-08-24 Brett Hamilton Univers ity of 01:42:00 [facility] PHOSPHORUS 2022-08-24 Brett Hamilton [place] of 01:23:00 [facility] XR CHEST 1 VW 2022-08-24 Brett Hamilton [place] of 00:48:19 [facility] XR KUB 2022-08-24 Brett Hamilton [place] of 00:48:19 [facility] MAGNESIUM 2022-08-24 Brett Hamilton [place] of 00:09:00 [facility] BASIC METABOLIC PANEL (NA, K, CL, 2022-08-24 Brett Hamilton of CO2, GLUCOSE, BUN, CREATININE, CA) 00:09:00 [facility] CBC WITH DIFF 2022-08-24 Brett Hamilton [place] of 00:09:00 [facility] POCT GLUCOSE (AUTOMATED) 2022-08-23 Brett Hamilton [facility] ity of 23:43:00 [facility] CONSENT/REFUSAL FOR DIAGNOSIS AND 2022-08-23 [facility] University of TREATMENT 23:33:39 Unassigned, No [facility] PREALBUMIN, SERUM 2022-08-23 Jude Murphy of 19:47:00 [facility] HEPATIC FUNCTION PANEL ([id number]) 2022-08-23 Jude Murphy U niversity of (ALB,T.PRO,BILI 19:47:00 [facility],BU/BC,ALT,AST,ALK PHOS) [place] BASIC METABOLIC PANEL (NA, K, CL, 2022-08-23 Jude Murphy of CO2, GLUCOSE, BUN, CREATININE, CA) 19:47:00 [facility] CBC WITHOUT DIFF 2022-08-23 Jude Murphy of 19:47:00 [facility] POCT GLUCOSE (AUTOMATED) 2022-07-20 Jorden Robertson ity of 16:40:00 [facility] POCT GLUCOSE (AUTOMATED) 2022-07-20 [place], Jorden Univers ity of 12:49:00 [facility] PREALBUMIN, SERUM 2022-07-20 [facility] o f 10:59:00 [facility] CORTISOL AM 2022-07-20 Dotty Camarillo [place] of 10:59:00 [facility] PHOSPHORUS 2022-07-20 [place], [facility] of 10:52:00 [facility] MAGNESIUM 2022-07-20 [facility], [facility] of 10:52:00 [facility] BASIC METABOLIC PANEL (NA, K, CL, 2022-07-20 [facility] of CO2, GLUCOSE, BUN, CREATININE, CA) 10:52:00 [facility] POCT GLUCOSE (AUTOMATED) 2022-07-20 Kamron Robertsonlani Univers ity of 04:40:00 [facility] POCT GLUCOSE (AUTOMATED) 2022-07-20 Ovamarjit, Jorden Univers ity of 00:55:00 [facility] POCT GLUCOSE (AUTOMATED) 2022-07-19 Kamron Robertsonlani Univers ity of 22:01:00 [facility] POCT GLUCOSE (AUTOMATED) 2022-07-19 Ovamarjit, Jorden Univers ity of 16:38:00 [facility] POCT GLUCOSE (AUTOMATED) 2022-07-19 Kamron Robertsonlani Univers ity of 12:42:00 [facility] PHOSPHORUS 2022-07-19 [facility] of 10:20:00 Tricia [facility] BASIC METABOLIC PANEL (NA, K, CL, 2022-07-19 Keysha Nguyen [place] of CO2, GLUCOSE, BUN, CREATININE, CA) 10:20:00 D [facility] CBC WITH DIFF 2022-07-19 Deedee Nguyen [place] of 10:20:00 D [facility] POCT GLUCOSE (AUTOMATED) 2022-07-19 OvKamron ocasiolani Univers ity of 08:56:00 [facility] POCT GLUCOSE (AUTOMATED) 2022-07-19 Ovamarjit, Jorden Univers ity of 06:09:00 [facility] POCT GLUCOSE (AUTOMATED) 2022-07-19 Ovamarjit, Jorden Univers ity of 01:10:00 [facility] POCT GLUCOSE (AUTOMATED) 2022-07-18 [place], Jorden Univers ity of 21:12:00 [facility] POCT GLUCOSE (AUTOMATED) 2022-07-18 [place], Jorden Univers ity of 16:26:00 [facility] POCT GLUCOSE (AUTOMATED) 2022-07-18 [place], Jorden Univers ity of 13:13:00 [facility] PHOSPHORUS 2022-07-18 [facility], [facility] of 10:08:00 [facility] MAGNESIUM 2022-07-18 [facility] of 10:08:00 [facility] BASIC METABOLIC PANEL (NA, K, CL, 2022-07-18 [facility] of CO2, GLUCOSE, BUN, CREATININE, CA) 10:08:00 [facility] POCT GLUCOSE (AUTOMATED) 2022-07-18 Ovamarjit, Jorden Univers ity of 10:07:00 [facility] POCT GLUCOSE (AUTOMATED) 2022-07-18 Ovamarjit, Jorden Univers ity of 06:17:00 [facility] POCT GLUCOSE (AUTOMATED) 2022-07-18 Zachary Li Univers ity of 01:38:00 [facility] POCT GLUCOSE (AUTOMATED) 2022-07-17 Zachary Li Univers ity of 21:37:00 [facility] POCT GLUCOSE (AUTOMATED) 2022-07-17 Zachary Li Univers ity of 16:46:00 [facility] POCT GLUCOSE (AUTOMATED) 2022-07-17 Zachary Li Univers ity of 13:01:00 [facility] PHOSPHORUS 2022-07-17 [facility] of 09:12:00 [facility] MAGNESIUM 2022-07-17 Ovamarjit, [facility] of 09:12:00 [facility] BASIC METABOLIC PANEL (NA, K, CL, 2022-07-17 [facility], [facility] of CO2, GLUCOSE, BUN, CREATININE, CA) 09:12:00 [facility] CBC WITH DIFF 2022-07-17 Jina, [facility] of 09:12:00 [facility] POCT GLUCOSE (AUTOMATED) 2022-07-17 Zachary Li Univers ity of 09:10:00 [facility] POCT GLUCOSE (AUTOMATED) 2022-07-17 Zachary Li Univers ity of 05:23:00 [facility] POCT GLUCOSE (AUTOMATED) 2022-07-17 Zachary Li Univers ity of 01:06:00 [facility] POCT GLUCOSE (AUTOMATED) 2022-07-16 Zachary Li Univers ity of 21:35:00 [facility] POCT GLUCOSE (AUTOMATED) 2022-07-16 Zachary Li Univers ity of 16:31:00 [facility] POCT GLUCOSE (AUTOMATED) 2022-07-16 Zachary Li ity of 09:19:00 [facility] PHOSPHORUS 2022-07-16 [facility] of 08:41:00 [facility] MAGNESIUM 2022-07-16 [facility] of 08:41:00 [facility] FERRITIN SERUM 2022-07-16 [facility] of 08:41:00 [facility] IRON 2022-07-16 [facility] of 08:41:00 [facility] TOTAL IRON BINDING CAPACITY 2022-07-16 [facility] ersity of 08:41:00 [facility] BASIC METABOLIC PANEL (NA, K, CL, 2022-07-16 Jina [facility] University of CO2, GLUCOSE, BUN, CREATININE, CA) 08:41:00 [facility] CBC WITH DIFF 2022-07-16 [facility] 08:41:00 [facility] RETICULOCYTES AUTOMATED 2022-07-16 Zachary Lii ty of 08:41:00 [facility] POCT GLUCOSE (AUTOMATED) 2022-07-16 Zachary Li Univers ity of 05:21:00 [facility] POCT GLUCOSE (AUTOMATED) 2022-07-16 Zachary Li Univers ity of 01:20:00 [facility] POCT GLUCOSE (AUTOMATED) 2022-07-15 Zachary Li Univers ity of 21:53:00 [facility] POCT GLUCOSE (AUTOMATED) 2022-07-15 Zachary Li Univers ity of 17:09:00 [facility] POCT GLUCOSE (AUTOMATED) 2022-07-15 Zachary Li ity of 13:45:00 [facility] XR KUB 2022-07-15 [facility] 13:43:35 [facility] MAGNESIUM 2022-07-15 Jina [facility] of 09:38:00 [facility] BASIC METABOLIC PANEL (NA, K, CL, 2022-07-15 Jc [facility] University of CO2, GLUCOSE, BUN, CREATININE, CA) 09:38:00 [facility] CBC WITH DIFF 2022-07-15 Kelvin Muro [place] of 09:38:00 [facility] POCT GLUCOSE (AUTOMATED) 2022-07-15 Zachary Li ity of 04:59:00 [facility] POCT GLUCOSE (AUTOMATED) 2022-07-15 Zachary Li Univers ity of 01:09:00 [facility] POCT GLUCOSE (AUTOMATED) 2022-07-14 Zachary Li ity of 21:08:00 [facility] POCT GLUCOSE (AUTOMATED) 2022-07-14 Zachary Li ity of 16:10:00 [facility] POCT GLUCOSE (AUTOMATED) 2022-07-14 Zachary Li ity of 12:39:00 [facility] PHOSPHORUS 2022-07-14 Zachary Li of 10:36:00 [facility] MAGNESIUM 2022-07-14 Zachary Li of 10:36:00 [facility] IRON 2022-07-14 Zachary Li of 10:36:00 [facility] COMP. METABOLIC PANEL ([id number]) 2022-07-14 Zachary Li Un iversity of 10:36:00 [facility] CBC WITH DIFF 2022-07-14 Zachary Li of 10:36:00 [facility] POCT GLUCOSE (AUTOMATED) 2022-07-14 Zachary Li Univers ity of 09:06:00 [facility] POCT GLUCOSE (AUTOMATED) 2022-07-14 Zachary Li ity of 05:22:00 [facility] POCT GLUCOSE (AUTOMATED) 2022-07-13 Zachary Li Univers ity of 22:27:00 [facility] POCT GLUCOSE (AUTOMATED) 2022-07-13 Zachary Li ity of 20:56:00 [facility] POCT GLUCOSE (AUTOMATED) 2022-07-13 Zachary Li ity of 15:49:00 [facility] POCT GLUCOSE (AUTOMATED) 2022-07-13 Zachary Li ity of 15:15:00 [facility] POCT GLUCOSE (AUTOMATED) 2022-07-13 Zachary Li ity of 14:59:00 [facility] PREALBUMIN, SERUM 2022-07-13 [facility] o f 10:51:00 [facility] PHOSPHORUS 2022-07-13 [facility] of 10:51:00 [facility] MAGNESIUM 2022-07-13 [facility] 10:51:00 [facility] TOTAL IRON BINDING CAPACITY 2022-07-13 Zachary Li [facility] ersity of 10:51:00 [facility] BASIC METABOLIC PANEL (NA, K, CL, 2022-07-13 Jina, [facility] CO2, GLUCOSE, BUN, CREATININE, CA) 10:51:00 [facility] CBC WITH DIFF 2022-07-13 [facility] of 10:51:00 [facility] XR CHEST 1 VW 2022-07-12 Zachary Li [place] of 21:52:10 [facility] PREALBUMIN, SERUM 2022-07-12 Zachary Li [place] of 15:31:00 [facility] VANCOMYCIN TROUGH 2022-07-12 [facility] of 11:07:00 [facility] VANCOMYCIN TROUGH 2022-07-12 [facility] of 11:07:00 [facility] PHOSPHORUS 2022-07-12 [facility] of 10:02:00 [facility] URIC ACID 2022-07-12 Max Cruz [facility] 10:02:00 [facility] MAGNESIUM 2022-07-12 [facility] 10:02:00 [facility] BASIC METABOLIC PANEL (NA, K, CL, 2022-07-12 Jina, [facility] University of CO2, GLUCOSE, BUN, CREATININE, CA) 10:02:00 [facility] CBC WITH DIFF 2022-07-12 [facility] of 10:02:00 [facility] PHOSPHORUS 2022-07-12 [facility] of 10:02:00 [facility] URIC ACID 2022-07-12 Max Cruz [place] of 10:02:00 [facility] MAGNESIUM 2022-07-12 [facility] of 10:02:00 [facility] BASIC METABOLIC PANEL (NA, K, CL, 2022-07-12 Jina, [facility] University of CO2, GLUCOSE, BUN, CREATININE, CA) 10:02:00 [facility] CBC WITH DIFF 2022-07-12 [facility] [place] of 10:02:00 [facility] AC PANEL 20 + LACTIC ACID 2022-07-11 PrakashBhaskar, [facility] ersity of 20:53:00 [facility] AC PANEL 20 + LACTIC ACID 2022-07-11 Johnny, [facility] ersity of 20:53:00 [facility] SURGICAL PATHOLOGY EXAM 2022-07-11 [facility] ty of 20:28:00 [facility] XR CHEST 1 VW 2022-07-11 [facility] [place] of 19:33:38 [facility] XR CHEST 1 VW 2022-07-11 Jina, [facility] of 19:33:38 [facility] EXPLORATORY LAPAROTOMY 2022-07-11 [facility] y of 18:36:00 [facility] BOWEL RESECTION 2022-07-11 [facility] of 18:36:00 [facility] EXPLORATORY LAPAROTOMY 2022-07-11 [facility] y of 18:36:00 [facility] BOWEL RESECTION 2022-07-11 [facility] of 18:36:00 [facility] XR KUB 2022-07-11 [facility] of 16:08:01 [facility] XR KUB 2022-07-11 [facility] of 16:08:01 [facility] BASIC METABOLIC PANEL (NA, K, CL, 2022-07-11 Zachary Li [place] of CO2, GLUCOSE, BUN, CREATININE, CA) 11:50:00 [facility] BASIC METABOLIC PANEL (NA, K, CL, 2022-07-11 Zachary Li [place] of CO2, GLUCOSE, BUN, CREATININE, CA) 11:50:00 [facility] XR KUB 2022-07-11 [facility] of 11:39:00 [facility] XR KUB 2022-07-11 [facility] of 11:39:00 [facility] CBC WITH DIFF 2022-07-11 Zachary Li [place] of 10:45:00 [facility] CBC WITH DIFF 2022-07-11 Zachary Li [place] of 10:45:00 [facility] CT ABDOMEN PELVIS WO CONTRAST 2022-07-11 Zachary Li iversity of 01:46:33 [facility] CT ABDOMEN PELVIS WO CONTRAST 2022-07-11 Zachary Li Un iversity of 01:46:33 [facility] MRSA / MSSA SCREEN BY PCR, CLAUDIA 2022-07-10 Zachary Li of 23:27:00 [facility] MRSA / MSSA SCREEN BY PCR, [facility] 2022-07-10 Zachary Li of 23:27:00 [facility] XR KUB 2022-07-10 Zachary Li of 22:40:17 [facility] XR KUB 2022-07-10 Zachary Li [place] of 22:40:17 [facility] LACTIC ACID WHOLE BLOOD 2022-07-10 Iram Payne Univers ity of 16:06:00 J [facility] LACTIC ACID WHOLE BLOOD 2022-07-10 Iram Payne Univers ity of 16:06:00 J [facility] BLOOD CULTURE SCREEN 2022-07-10 Lupillo Taylor of 10:59:00 [facility] PHOSPHORUS 2022-07-10 Lupillo Taylor [place] of 10:59:00 [facility] MAGNESIUM 2022-07-10 Lupillo Taylor [place] of 10:59:00 [facility] BASIC METABOLIC PANEL (NA, K, CL, 2022-07-10 Aaron Taylor [place] of CO2, GLUCOSE, BUN, CREATININE, CA) 10:59:00 [facility] CBC WITH DIFF 2022-07-10 Lupillo Taylor [place] of 10:59:00 [facility] BLOOD CULTURE SCREEN 2022-07-10 Lupillo Taylor of 10:59:00 [facility] PHOSPHORUS 2022-07-10 Lupillo Taylor [place] of 10:59:00 [facility] MAGNESIUM 2022-07-10 Lupillo Taylor [place] of 10:59:00 [facility] BASIC METABOLIC PANEL (NA, K, CL, 2022-07-10 Aaron Taylor [place] of CO2, GLUCOSE, BUN, CREATININE, CA) 10:59:00 [facility] CBC WITH DIFF 2022-07-10 Lupillo Taylor of 10:59:00 [facility] CT ABDOMEN PELVIS WO CONTRAST 2022-07-10 Lupillo Taylor iversity of 09:25:28 [facility] CT ABDOMEN PELVIS WO CONTRAST 2022-07-10 Lupillo Taylor Un iversity of 09:25:28 [facility] COVID-19 (ID NOW RAPID TESTING) 2022-07-10 Iram Payne of 01:12:00 J [facility] COVID-19 (ID NOW RAPID TESTING) 2022-07-10 Iram Payne of 01:12:00 [facility] LAB ONLY COVID INTERPRETATION 2022-07-10 Iram Payne niversity of 01:12:00 J [facility] LACTIC ACID WHOLE BLOOD 2022-07-10 Iram Payne [facility] ity of 00:14:00 J [facility] LACTIC ACID WHOLE BLOOD 2022-07-10 Iram Payne Univers ity of 00:14:00 J [facility] LIPASE 2022-07-10 Iram Payne [place] of 00:10:00 J [facility] MAGNESIUM 2022-07-10 Iram Payne [place] of 00:10:00 [facility] COMP. METABOLIC PANEL ([id number]) 2022-07-10 Iram Payne niversity of 00:10:00 [facility] CBC WITH DIFF 2022-07-10 Iram Payne of 00:10:00 J [facility] LIPASE 2022-07-10 Iram Payne of 00:10:00 J [facility] MAGNESIUM 2022-07-10 Iram Payne [place] of 00:10:00 [facility] COMP. METABOLIC PANEL ([id number]) 2022-07-10 Iram Payne niversity of 00:10:00 [facility] CBC WITH DIFF 2022-07-10 Iram Payne [place] of 00:10:00 [facility] NOTICE OF PRIVACY PRACTICES 2022-07-09 Doctor [facility] ersity of 23:38:54 Unassigned, No [facility] NOTICE OF PRIVACY PRACTICES 2022-07-09 Doctor Univ ersity of 23:38:54 Unassigned, No [facility] CONSENT/REFUSAL FOR DIAGNOSIS AND 2022-07-09 Doctor [facility] TREATMENT 23:37:03 Unassigned, No [facility] CONSENT/REFUSAL FOR DIAGNOSIS AND 2022-07-09 Doctor [place] of TREATMENT 23:37:03 Unassigned, No [facility] COMP. METABOLIC PANEL ([id number]) 2022-05-27 Janene Taylor iversity of 00:31:00 [facility] CBC WITH DIFF 2022-05-27 Janene Taylor [facility] 00:31:00 [facility] CONSENT/REFUSAL FOR DIAGNOSIS AND 2022-05-26 [facility] University of TREATMENT 23:52:11 Unassigned, No [facility] XR KUB 2022-05-01 [facility] 15:57:16 [facility] BASIC METABOLIC PANEL (NA, K, CL, 2022-04-29 [place], [facility] of CO2, GLUCOSE, BUN, CREATININE, CA) 09:55:00 [facility] BASIC METABOLIC PANEL (NA, K, CL, 2022-04-29 [facility] of CO2, GLUCOSE, BUN, CREATININE, CA) 09:55:00 [facility] CBC WITHOUT DIFF 2022-04-28 [facility] 17:04:00 [facility] CBC WITHOUT DIFF 2022-04-28 [facility] 17:04:00 [facility] CBC WITHOUT DIFF 2022-04-28 [facility] 17:04:00 [facility] MAGNESIUM 2022-04-28 [facility] 17:03:00 [facility] BASIC METABOLIC PANEL (NA, K, CL, 2022-04-28 [facility] of CO2, GLUCOSE, BUN, CREATININE, CA) 17:03:00 [facility] BASIC METABOLIC PANEL (NA, K, CL, 2022-04-28 [facility] of CO2, GLUCOSE, BUN, CREATININE, CA) 17:03:00 [facility] MAGNESIUM 2022-04-28 [facility] 17:03:00 [facility] BASIC METABOLIC PANEL (NA, K, CL, 2022-04-28 [facility] of CO2, GLUCOSE, BUN, CREATININE, CA) 17:03:00 [facility] INTUBATION 2022-04-28 [facility] of 14:47:00 [facility] ESOPHAGOGASTRODUODENOSCOPY 2022-04-28 [facility] 14:27:00 K [facility] ESOPHAGOGASTRODUODENOSCOPY 2022-04-28 [facility] of 14:27:00 [facility] EGD (ENDO) 2022-04-28 [facility] of 14:21:27 [facility] EGD (ENDO) 2022-04-28 [facility] of 14:21:27 [facility] POTASSIUM SERUM 2022-04-27 [facility] of 22:05:00 [facility] BASIC METABOLIC PANEL (NA, K, CL, 2022-04-27 [facility] of CO2, GLUCOSE, BUN, CREATININE, CA) 22:05:00 [facility] POTASSIUM SERUM 2022-04-27 [facility] of 22:05:00 [facility] BASIC METABOLIC PANEL (NA, K, CL, 2022-04-27 [facility] of CO2, GLUCOSE, BUN, CREATININE, CA) 22:05:00 [facility] POTASSIUM SERUM 2022-04-27 [facility] of 22:05:00 [facility] BASIC METABOLIC PANEL (NA, K, CL, 2022-04-27 [facility] of CO2, GLUCOSE, BUN, CREATININE, CA) 22:05:00 [facility] BASIC METABOLIC PANEL (NA, K, CL, 2022-04-27 Sanchez, [facility] of CO2, GLUCOSE, BUN, CREATININE, CA) 15:10:00 [facility] BASIC METABOLIC PANEL (NA, K, CL, 2022-04-27 [facility], [facility] of CO2, GLUCOSE, BUN, CREATININE, CA) 15:10:00 [facility] BASIC METABOLIC PANEL (NA, K, CL, 2022-04-27 [facility] of CO2, GLUCOSE, BUN, CREATININE, CA) 15:10:00 [facility] COVID-19 (ID NOW RAPID TESTING) 2022-04-27 Charlotte Miranda [place] of 00:04:00 [facility] LAB ONLY COVID INTERPRETATION 2022-04-27 Charlotte Miranda [facility] of 00:04:00 [facility] COVID-19 (ID NOW RAPID TESTING) 2022-04-27 Charlotte Miranda [place] of 00:04:00 [facility] LAB ONLY COVID INTERPRETATION 2022-04-27 Ebrahim, Rania Un iversity of 00:04:00 [facility] COVID-19 (ID NOW RAPID TESTING) 2022-04-27 Charlotte Miranda of 00:04:00 [facility] LAB ONLY COVID INTERPRETATION 2022-04-27 Charlotte Miranda Un iversity of 00:04:00 [facility] CT THORAX W CONTRAST 2022-04-26 Charlotte Miranda [place] of 23:01:53 [facility] CT THORAX W CONTRAST 2022-04-26 [facility] 23:01:53 [facility] CT THORAX W CONTRAST 2022-04-26 [facility] 23:01:53 [facility] LIPASE 2022-04-26 [facility] of 22:45:00 [facility] MAGNESIUM 2022-04-26 Maryjane [facility] of 22:45:00 [facility] TROPONIN I 2022-04-26 [facility] of 22:45:00 [facility] COMP. METABOLIC PANEL ([id number]) 2022-04-26 Charlotte Miranda Un iversity of 22:45:00 [facility] CBC WITH DIFF 2022-04-26 [facility] 22:45:00 [facility] N-TERMINAL PRO-BNP 2022-04-26 [facility]Roberto [facility] of 22:45:00 [facility] CBC WITH DIFF 2022-04-26 [facility] of 22:45:00 [facility] TROPONIN I 2022-04-26 [facility] of 22:45:00 [facility] N-TERMINAL PRO-BNP 2022-04-26 [facility] of 22:45:00 [facility] LIPASE 2022-04-26 [facility] of 22:45:00 [facility] COMP. METABOLIC PANEL ([id number]) 2022-04-26 Charlotte Miranda Un iversity of 22:45:00 [facility] MAGNESIUM 2022-04-26 Maryjane [facility] of 22:45:00 [facility] LIPASE 2022-04-26 [facility] of 22:45:00 [facility] MAGNESIUM 2022-04-26 Maryjane [facility] of 22:45:00 [facility] TROPONIN I 2022-04-26 Charlotte Miranda [place] of 22:45:00 [facility] COMP. METABOLIC PANEL ([id number]) 2022-04-26 Charlotte Miranda Un iversity of 22:45:00 [facility] CBC WITH DIFF 2022-04-26 [facility] of 22:45:00 [facility] N-TERMINAL PRO-BNP 2022-04-26 [facility] of 22:45:00 [facility] HB ECG ROUTINE & RHYTHM STRIP 2022-04-26 Charlotte Miranda Un iversity of 22:15:20 [facility] HB ECG ROUTINE & RHYTHM STRIP 2022-04-26 Charlotte Miranda Un iversity of 22:15:20 [facility] HB ECG ROUTINE & RHYTHM STRIP 2022-04-26 Charlotte Miranda Un iversity of 22:15:20 [facility] XR CHEST 1 VW 2022-04-26 [facility] of 21:18:17 [facility] XR CHEST 1 VW 2022-04-26 [facility] of 21:18:17 [facility] XR CHEST 1 2022-04-26 [facility] of 21:18:17 [facility] CONSENT/REFUSAL FOR DIAGNOSIS AND 2022-04-26 [facility] 20:55:28 Unassigned, No [facility] CONSENT/REFUSAL FOR DIAGNOSIS AND 2022-04-26 [facility] 20:55:28 Unassigned, No [facility] CONSENT/REFUSAL FOR DIAGNOSIS AND 2022-04-26 [facility] 20:55:28 Unassigned, No [facility] SURGICAL PATHOLOGY EXAM 2022-03-12 Negrito Shaver [facility] ty of 15:50:00 [facility] INTUBATION 2022-03-12 Юлия Sutton of 14:53:00 Dee Dee [facility] INGUINAL HERNIORRHAPHY 2022-03-12 [facility] 14:34:00 [place] [facility] OPEN APPENDECTOMY 2022-03-12 Negrito Shaver [place] of 14:34:00 [facility] DAY SURGERY - [facility] 2022-03-12 Doctor [place] of 05:01:00 Unassigned, No [facility] CONSENT/REFUSAL FOR DIAGNOSIS AND 2022-03-09 Doctor [facility] TREATMENT 20:29:26 Unassigned, No [facility] ASSIGNMENT OF BENEFITS 2022-03-09 Doctor [facility] of 20:29:06 Unassigned, No [facility] COVID-19 (ID NOW RAPID TESTING) 2022-03-09 Negrito Shaver [place] of 20:27:00 [facility] Branch LAB ONLY COVID INTERPRETATION 2022-03-09 Negrito Shaver Un iversity of 20:27:00 [facility] NOTICE OF PRIVACY PRACTICES 2022-03-09 Doctor [facility] ersity of 20:22:10 Unassigned, No [facility] CONSENT/REFUSAL FOR DIAGNOSIS AND 2022-03-09 Doctor [facility] TREATMENT 20:21:53 Unassigned, No [facility] ASSIGNMENT OF BENEFITS 2022-03-09 [facility] 20:21:32 Unassigned, No [facility] DISCLOSURE AND CONSENT, MEDICAL 2022-03-05 [facility] of AND SURGICAL PROCEDURES 05:01:00 Unassigned, No [facility] dical Name Branch INTUBATION 2022-02-25 Puma Sandy [place] of 17:01:00 [facility] HB ABO GROUPING 2022-02-25 Stephanie Galvez [place] of 15:52:00 [facility] CONSENT/REFUSAL FOR DIAGNOSIS AND 2022-02-25 Doctor [facility] TREATMENT 13:23:24 Unassigned, No [facility] COVID-19 (ID NOW RAPID TESTING) 2022-02-25 Zander Howe [place] of 13:18:00 [facility] LAB ONLY COVID INTERPRETATION 2022-02-25 Zander Howe Un iversity of 13:18:00 [place] [facility] ASSIGNMENT OF BENEFITS 2022-02-25 Doctor [facility] of 13:04:20 Unassigned, No [place] [facility] DAY [facility] 2022-02-25 [facility] of 05:01:00 Unassigned, No [facility] REFERRAL- REQUEST/RESPONSE 2022-02-18 [facility] of 05:01:00 Unassigned, No [facility] XR CHEST 2 VW 2022-02-04 Liv Boucher of 20:28:00 [facility] CBC WITH DIFF 2022-02-04 Liv Boucher [place] of 20:11:00 [facility] BASIC METABOLIC PANEL (NA, K, CL, 2022-02-04 Liv Boucher [place] of CO2, GLUCOSE, BUN, CREATININE, CA) 20:11:00 [facility] HEPATIC FUNCTION PANEL ([id number]) 2022-02-04 Liv Boucher [facility]iversity of (ALB,T.PRO,BILI 20:11:00 [facility],BU/BC,ALT,AST,ALK PHOS) Branch PREALBUMIN, SERUM 2022-02-04 Liv Boucher [facility] 20:11:00 [facility] Plan of Care Planned Activity Planned [...] Future Scheduled Test 2022-07-24 00:00:00 IMM Influenza [facility] Seasonal (>/= 19 yrs) [code = IMM Influenza Seasonal (>/= 19 yrs)] Future Scheduled Test 2022-07-24 00:00:00 IMM Influenza [facility] Seasonal (>/= 19 yrs) [code = IMM Influenza Seasonal (>/= 19 yrs)] Future Scheduled Test 2021-07-24 00:00:00 IMM Influenza [facility] Seasonal Jul to December (>/= 19 yrs) [code = IMM Influenza Seasonal Oct to December (>/= 19 yrs)] Future Scheduled Test 1996 00:00:00 COVID-19 Vaccine (1) [facility] [code = COVID-19 Vaccine (1)] Future Scheduled Test 1984 00:00:00 COVID-19 Vaccine (#1) [facility] [code = COVID-19 Vaccine (#1)] Future Scheduled Test 1984 00:00:00 COVID-19 Vaccine (#1) [facility] [code = COVID-19 Vaccine (#1)] Future Scheduled Test 1984 00:00:00 COVID-19 Vaccine (#1) [facility] [code = COVID-19 Vaccine (#1)] Future Scheduled Test 1984 00:00:00 COVID-19 Vaccine (#1) [facility] [code = COVID-19 Vaccine (#1)] Future Scheduled Test 1984 00:00:00 COVID-19 Vaccine (#1) [facility] [code = COVID-19 Vaccine (#1)] Future Scheduled Test 1984 00:00:00 COVID-19 Vaccine (#1) [facility] [code = COVID-19 Vaccine (#1)] Future Scheduled Test 1984 00:00:00 COVID-19 Vaccine (#1) [facility] [code = COVID-19 Vaccine (#1)] Future Scheduled Test 1984 00:00:00 COVID-19 Vaccine (#1) [facility] [code = COVID-19 Vaccine (#1)] Future Scheduled Test 1984 00:00:00 COVID-19 Vaccine (#1) [facility] [code = COVID-19 Vaccine (#1)] Future Scheduled Test 1984 00:00:00 COVID-19 Vaccine (#1) [facility] [code = COVID-19 Vaccine (#1)] Future Scheduled Test 1984 00:00:00 Fluoride Varnish [facility] [code = Fluoride Varnish] Future Scheduled Test 1984 00:00:00 Fluoride Varnish [facility] [code = Fluoride Varnish] Future Scheduled Test 1984 00:00:00 Fluoride Varnish [facility] [code = Fluoride Varnish] Future Scheduled Test 1984 00:00:00 Fluoride Varnish [facility] [code = Fluoride Varnish] Future Scheduled Test 1984 00:00:00 Fluoride Varnish [facility] [code = Fluoride Varnish] Future Scheduled Test 1984 00:00:00 Fluoride Varnish [facility] [code = Fluoride Varnish] Future Scheduled Test 1984 00:00:00 Fluoride Varnish [facility] [code = Fluoride Varnish] Future Scheduled Test 1984 00:00:00 Fluoride Varnish [facility] [code = Fluoride Varnish] Encounters Start End Encounter Admission Attending Care Care Encounter Source Date/Time Date/Time Type Type Clinicians Facility Department ID 2022-08-23 Outpatient R PARKER CHAN [facility] [id number] Univers 17:04:54 PARKER CHAN i [facility] 2022-05-18 Outpatient [facility] [id number] [place] 14:53:[id number] [facility] 2022-01-18 Outpatient [facility] [id number] [place] 04:45:[id number] [facility] 2020-10-19 Inpatient Ryne HARPER ILLAKEISHA MAYI [id number] Univers 02:37:00 [facility]10[facility]06 [facility]patient HCAPM JOSE [id number] [facility] 00:50:00 11 [facility] 2023-02-08 2023-02-08 Outpatient R [facility] [id number] Univers 09:00:00 09:00:00 ity [facility] 2022-08-26 2022-08-26 Transition SHARON Araujo 1.2.840.114 [id number] Univers 00:00:00 00:00:00 of Care Henrietta WILSON 350.1.13.10 it[place] tonya [place] [id number] [facility] 403 Branch 2022-08-23 2022-08-25 Hospital Joy Edis [facility] 1.2.840.11 [id number] Univers 18:36:00 14:05:00 Encounter Nupur Sandoval 350.1.13.10 ity of Adis Dillon IRINA 4.2.7.2.686 [place]ER [id number] [facility] 110 Branch (CLC) 2022-08-23 2022-08-23 Oil 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 Attendant [facility] UNIVERSIT 1..840.114 [id number] Univers 15:15:00 15:30:00 Visit Breanna Parker [facility] 350.1.13.10 it[place] of [place] [id number] [facility] 316 Branch 2022-08-23 2022-08-23 Office YARELI Chan 1.2.284.073 [id number] Univers 14:00:00 14:30:00 Visit Parker [facility] 350.1.13.10 i ty of [place] 4[place] [id number] [facility] 185 Branch 2022-08-23 2022-08-23 Outpatient R PARKER CHAN [facility] 1 [id number] Univers 14:00:00 14:00:00 PARKER CHAN [facility] 2022-08-23 2022-08-23 Outpatient R PARKER CHAN [facility] 1 [id number] Univers 14:00:00 14:00:00 PARKER CHAN [facility] 2022-08-23 2022-08-23 Prep For Mitchell, UNIVERSIT 1.2.840.114 [id number] Univers 00:00:00 00:00:00 Surgery Mitzy HEALTH 350.1.13.10 i ty [place] [id number] [facility] 185 Branch 2022-08-10 2022-08-10 Office Genie Laureano UNIVERSI T 1.2.840.114 [id number] Univers 09:00:00 09:30:00 Visit Dariel Hu HEALTH 350.1.13. 10 [place] of [place] [id number] [place] [address] Branch 2022-08-10 2022-08-10 Outpatient R FRITZ [facility] [id number] Univers 09:00:00 09:00:00 DARIEL itjared [facility] 2022-07-09 2022-07-20 Inpatient X [facility] [id number] Univers 18:43:00 16:45:00 JORDEN ity [facility] 2022-07-09 2022-07-20 [facility] Kerry Iram Keri [facility] 1.2.84 0.114 [id number] Univers 18:43:00 16:45:00 Encounter Lupillo Taylor 350.1.13.10 ity of Zachary Li 4.2.7.2.686 [facility] [id number] [address] 2022-07-12 2022-07-12 Outpatient R [facility] [id number] Univers 13:30:00 13:30:00 ity of [facility] 2022-07-11 2022-07-11 Surgery [facility] 1.2.840.114 [id number] Univers 13:00:00 21:28:00 German BRIONES 350.1.13.10 [place].686 [place] SURGICAL [id number] [facility] 020 Branch 2022-06-04 2022-06-04 Telephone YARELI Capps 1.2.840.114 [id number] Univers 00:00:00 00:00:00 Williams Lundyan [facility] 350.1.13.10 ity of CL[place]ICS 4.2.[place] [id number] [place] [address] Branch 2022-05-26 2022-05-26 Emergency X ISAEL [facility] ERT [id number] Univers 19:02:00 22:40:00 CINDY ity [facility] 2022-05-26 2022-05-26 Emergency Janene Taylor [facility] 1.2.840. 114 [id number] Univers 19:02:00 22:40:00 Cindy Akins 350.1.13.10 ity of [place] 4.2.7.2.686 [facility] [id number] [facility] 084 Branch 2022-05-05 2022-05-05 Transition SHARON Araujo 1.2.840.114 [id number] Univers 00:00:00 00:00:00 of Care Henrietta WILSON 350.1.13.10 ity of [place] 4.2.7.2.[address] [facility] [id number] [facility] 403 Branch 2022-04-26 2022-05-04 Inpatient X AMELIE ALMEIDA [facility] [id number] Univers 16:01:00 12:18:00 AMELIE ALMEIDA ity of [facility] 2022-04-26 2022-05-04 [facility] 1.2.840.11 4 [id number] Univers 16:01:00 12:18:00 [facility] 350.1. 13.10 ity of Sera Col[place] 4.2.7.2.686 [facility] [id number] [address] ([facility]) 2022-04-28 2022-04-28 Anesthesia Gayle Lino 1.2.840.1 1 [id number] Univers 09:38:00 10:28:00 Event Radu Schroeder 35870.1.1 ity of 3.104.2.7 [place] .3.847708 Medica l .8 Branch 2022-04-28 2022-04-28 [facility] 1.2.840.114 [id number] Univers 09:30:00 10:01:00 Derrell NAJERA 350.1.13.10 ity of CARE 4.2.7.2.686 [facility] AT [id number] [place] stephanie ORLANDO [address] [place] [address] 2022-04-27 2022-04-27 Anesthesia Fawn Johnson 1.2.840.1 [id number] Univers 12:29:50 12:29:50 Event Sabrina Sanchez 93493.1.1 ity of 3.104.2.7 [place] .3.419982 Medica l .8 [place] 2022-04-26 2022-04-26 Travel 1.2.840.1 1.2.258.005 [id number] Univers 00:00:00 00:00:00 08460.1.1 350.1.13.10 ity of 3.104.2.7 4.[place].7.3.698 [place] .3.981479 084.8 Medica l .8 [place] 2022-04-05 2022-04-05 Telephone Catrett, 1.2.840.8 [id number] Univers 00:00:00 00:00:00 Mitzy 67472.1.1 ity of 3.104.2.7 [place] .3.553883 Medica l .8 [place] 2022-04-02 2022-04-02 Office Sivakumar [facility] 1.2.840.114 [id number] Univers 11:45:00 11:45:00 Visit Negrito BRIONES 350.1.13.10 i ty of [place] 4.2.7.2.686 Paula malloy PROFESSIO [id number] [place] dical NAL 188 [facility] 2022-04-02 2022-04-02 Office Sivakumar, 1.2.840.9 [id number] Univers 11:45:00 11:45:00 Visit Negrito 09238.1.1 ity of [place] 3.104.2.7 [place] .3.810071 Medica l .8 [place] 2022-04-02 2022-04-02 [facility] [id number] Univers 11:45:00 11:33:03 NEGRITO ity of [facility] 2022-04-02 2022-04-02 Travel 1.2.840.1 1.2.577.141 [id number] Univers 00:00:00 00:00:00 30888.1.1 350.1.13.10 ity of 3.104.2.7 4.2.7.3.698 [place] .3.660835 084.8 Medica l .8 Branch 2022-03-24 2022-03-24 Telephone Zander Howe UNIVERSIT 1.2.840.114 [id number] Univers 00:00:00 00:00:00 Y HEALTH 350.1.13.10 i ty of CLINICS 4.2.[place].2.[place] [id number] [facility] 185 Branch 2022-03-24 2022-03-24 Telephone Zander Howe 1.2.840.0 [id number] Univers 00:00:00 00:00:00 26012.1.1 ity of 3.104.2.7 [place] .3.898096 Medica l .8 Branch 2022-03-19 2022-03-19 Telephone Zander Howe 1.2.840.114 [id number] Univers 00:00:00 00:00:00 NAMRATA 350.1.13.10 it y of [facility] 4.2.7.2.686 [place] as [id number] [facility] 037 Branch 2022-03-19 2022-03-19 Telephone Zander Howe 1.2.840.2 [id number] Univers 00:00:00 00:00:00 77718.1.1 ity of 3.104.2.7 [place] .3.329599 Medica l .8 [place] 2022-03-12 2022-03-12 [facility] STEPHANIE [id number] Univers 08:13:00 16:20:00 NEGRITO walker of [facility] 2022-03-12 2022-03-12 [facility] 1.2.840.114 [id number] Univers 08:13:00 16:20:00 Encounter Negrito BRIONES 350.1.13.10 ity of [place] 4.2.7.2.[place] SURGICAL [id number] [facility] 071 [place] 2022-03-12 2022-03-12 [facility] Sivakumar, 1.2.840.1 [id number] Univers 08:13:00 16:20:00 Encounter Negrito 99205.1.1 it y of [place] 3.104.2.7 [place] .3.132060 Medica l .8 Branch 2022-03-12 2022-03-12 Anesthesia FregosoCarley swan 1.2.840.1 [id number] Univers 09:44:00 12:14:00 Event Richard Granados 72018.1.1 ity of 3.104.2.7 [place] .3.391092 Medica l .8 Branch 2022-03-12 2022-03-12 Surgery [facility] 1.2.840.114 [id number] Univers 09:54:00 12:12:00 Negrito BRIONES 350.1.13.10 i ty of [place] 4.2.7.2.[address] [facility] SURGICAL [id number] [facility] 020 [place] 2022-03-12 2022-03-12 Surgery Sivakumar, 1.2.840.2 [id number] Univers 09:54:00 12:12:00 Negrito 59437.1.1 ity of [place] 3.104.2.7 [place] .3.146151 Medica l .8 [place] 2022-03-09 2022-03-09 Laboratory Only, Adc Test [facility] 1.2.840. 114 [id number] Univers 10:15:00 10:30:00 Only Negrito Shaver 350.1.13 .10 ity of [place] 4.2.7.2.686 [facility] [id number] [facility] 353 [place] 2022-03-09 2022-03-09 Laboratory Negrito Shaver 1.2.840.5 [id number] Univers 10:15:00 10:30:00 Only Only, Adc Test 07969.1.1 ity of 3.104.2.7 [place] .3.957248 Medica l .8 [place] 2022-03-09 2022-03-09 Outpatient R SIVAKUMAR [facility] [id number] Univers 10:15:00 10:15:00 NEGRITO ity of [facility] 2022-03-09 2022-03-09 Travel 1.2.840.1 1.2.178.306 [id number] Univers 00:00:00 00:00:00 80976.1.1 350.1.13.10 ity of 3.104.2.7 4.[place].7.3.698 [place] .3.732233 084.8 Medica l .8 [place] 2022-03-05 2022-03-05 Outpatient Lisa SHAVER [facility] [id number] Univers 10:15:00 12:01:28 NEGRTIO itjared [facility] 2022-03-05 2022-03-05 Office [facility] 1.2.840.114 [id number] Univers 10:15:00 12:01:28 Visit Negrito BRIONES 350.1.13.10 i ty of [place] 4.2.[place].2.686 [place] PROFESS[place] [id number] [place] dical NAL 188 [facility] 2022-03-05 2022-03-05 Outpatient Lisa SHAVER [facility] [id number] Univers 10:15:00 12:01:28 NEGRITO wildery [facility] 2022-03-05 2022-03-05 Office Sivakumar, 1.2.840.7 [id number] Univers 10:15:00 12:01:28 Visit Negrito 85026.1.1 ity of [place] 3.104.2.7 [place] .3.345325 Medica l .8 [place] 2022-03-05 2022-03-05 Outpatient [facility] [id number] Univers 10:15:00 10:15:00 NEGRITO ity [facility] 2022-02-25 2022-02-25 Outpatient ZANDER CONTRERAS [facility] SCT [id number] Univers 08:04:00 13:21:00 ity of [facility] 2022-02-25 2022-02-25 [facility] Zander Howe 1.2.840.114 [id number] Univers 08:04:00 13:21:00 Encounter NAMRATA 350.1.13.10 ity of [facility] 4.2.7.2.686 [place] [id number] [facility] [address] 2022-02-25 2022-02-25 Hospital Zander Howe 1.2.840.6 [id number] Univers 08:04:00 13:21:00 Encounter 28798.1.1 it y of 3.104.2.7 [place] .3.539019 Medica l .8 [place] 2022-02-25 2022-02-25 Surgery Zander Howe 1.2.411.886 [id number] 1970 Univers 09:35:00 12:45:00 NAMRATA 350.1.13.10 it y of HOSPITAL 4.2.7.2.686 [place] [id number] [facility] [address] 2022-02-25 2022-02-25 Surgery Zander Howe 1.2.840.7 [id number] 96751 Univers 09:35:00 12:45:00 44520.1.1 ity of 3.104.2.7 [place] .3.189564 Medica l .8 Branch 2022-02-25 2022-02-25 Anesthesia Yung Arita 1.2.840.7 [id number] Univers 11:53:00 12:33:00 Event pacheco-Cyril Goldkenzie 91439.1.1 ity of 3.104.2.7 [place] .3.798062 Medica l .8 Branch 2022-02-24 2022-02-24 Travel 1.2.840.1 1.2.970.747 [id number] 3784 Univers 00:00:00 00:00:00 87915.1.1 350.1.13.10 ity of 3.104.2.7 4.[place].7.3.698 [place] .3.065137 084.8 Medica l .8 Branch 2022-02-18 2022-02-18 Orders Doctor NEGRITO 1.2.840.114 [id number] Univers 00:00:00 00:00:00 Only Unassigned, NAMRATA 350.1.13.10 ity of [facility] 4.2.7.2.686 [place] [id number] [facility] [address] 2022-02-18 2022-02-18 Orders Doctor 1.2.840.8 [id number] Univers 00:00:00 00:00:00 Only Unassigned, 67564.1.1 ity of [facility] 3.104.2.7 [place] .3.415902 Medica l .[address] [place] 2022-02-15 [facility]22[facility]02-[facility] 2079 3841 Univers 00:00:00 00:00:00 Stephanie MCKENNAY 350.1.13.10 ity of HOSPITAL 4.2.7.2.686 [place] [id number] [address] 2022-02-15 2022-02-15 [facility], .2.840.1 [id number] 930 92350 Univers 00:00:00 00:00:00 Stephanie Rose 89018.1.1 it y of 3.104.2.7 [place] .3.745926 Medica l .[address] [place] 2022-02-09 2022-02-09 [facility] NEGRITO 1.2.752.265 8982 0554 Univers 00:00:00 00:00:00 Stephanie L NAMRATA 350.1.13.10 ity of [facility] 4.2.7.2.686 [place] [id number] [address] 2022-02-09 2022-02-09 [facility], .2.840.1 [id number] 928 58008 Univers 00:00:00 00:00:00 Stephanie Rose 44799.1.1 it y of 3.104.2.7 [place] .3.543818 Medica l .[address] [place] 2022-02-08 2022-02-08 [facility] [id number] Univers 00:00:00 00:00:00 Management Stephanie MCKENNAY 350.1.13.10 ity of HOSPITAL 4.2.7.2.686 [place] [id number] [address] 2022-02-08 2022-02-08 [facility], .2.840.4 [id number] 94450 687 Univers 00:00:00 00:00:00 Management Stephanie Rose 89988.1.1 ity of 3.104.2.7 [place] .3.507206 Medica l .[address] [place] 2022-02-04 2022-02-04 Hospital Zander Howe UNIVERSIT 1.2.840.114 9 [id number] Univers 15:17:56 23:59:00 Encounter Y HEALTH 350.1.13.10 ity [place] [id number] [facility] [address] 2022-02-04 2022-02-04 Hospital Zander Howe 1.2.840.8 [id number] [id number] Univers 15:17:56 23:59:00 Encounter 76941.1.1 it y of 3.104.2.7 [place] .3.359732 Medica l .[address] [place] 2022-02-04 2022-02-04 [employer] ShyamZander 1.2.840.5 [id number] Univers 15:30:00 15:47:42 Visit [facility] 22235.1.1 ity of 3.104.2.7 [place] .3.249459 Medica l .[address] [place] 2022-02-04 2022-02-04 [employer] [facility] UNIVERSIT 1.2.840.114 9 [id number] Univers 15:30:00 15:45:00 Visit Zander Howe Y HEALTH 350.1.13.10 ity [place] [id number] [facility] [address] 2022-02-04 2022-02-04 Outpatient R SHYAM [facility] [id number] 22270 Univers 13:30:00 14:38:59 ity of [facility] 2022-02-04 2022-02-04 Office HoweZander coleman UNIVERSIT 1.2.840.114 92 [id number] Univers 13:30:00 14:38:59 Visit Y HEALTH 350.1.13.10 i ty [place] [id number] [facility] [address] 2022-02-04 2022-02-04 Outpatient R [facility] [id number] 05208 Univers 13:30:00 14:38:59 ity of [facility] 2022-02-04 2022-02-04 Office Zander Howe 1.2.840.3 [id number] 921 49475 Univers 13:30:00 14:38:59 Visit 57589.1.1 ity of 3.104.2.7 [place] .3.320115 Medica l .8 [place] 2022-02-04 2022-02-04 Travel 1.2.840.1 1.2.294.660 2326 6099 Univers 00:00:00 00:00:00 75045.1.1 350.1.13.10 ity of 3.104.2.7 4.[place]7.3.698 [place] .3.439634 084.8 Medica l .[address] [place] 2022-01-14 2022-01-14 Outpatient Lisa [facility]E [facility] [id number] Univers 14:45:00 14:45:00 ity of [facility] 2021-12-31 2021-12-31 Outpatient Lisa HOWE [facility] [id number] [id number] Univers 15:45:00 15:45:00 ity of [facility] 2021-12-17 2021-12-17 Outpatient Lisa HOWE [facility] [id number] 78525 Univers 14:30:00 14:30:00 ity [facility] 2021-11-14 2021-11-15 Outpatient X RABIA [facility] [id number] Univers 17:45:00 18:29:00 DOTTY ity [facility] 2021-11-14 2021-11-15 [facility] Nilo Guillaume [facility] 1.2.8 40.114 [id number] Univers 17:45:00 18:29:00 Encounter Dotty [place] 350.1.13.10 ity of [place] 4.2.7.2.686 [facility] [id number] [facility] [address] [place] 2021-11-14 2021-11-15 Outpatient X RABIA ILLAKEISHA MAYI [id number] Univers 17:45:00 18:29:00 DOTTY ity [facility] 2021-11-12 2021-11-12 Outpatient Lisa HOWE [facility] [id number] Univers 14:15:00 14:19:16 ity [facility] 2021-11-12 2021-11-12 Office Zander Howe UNIVERSIT 1.2.840.114 [id number] Univers 14:15:00 14:19:16 Visit HEALTH 350.1.13.10 i ty [place] [id number] [facility] [address] 2021-11-12 2021-11-12 Outpatient R ZANDER HOWE [facility] [id number] Univers 14:15:00 14:19:16 ity [facility] 2021-11-02 2021-11-02 Emergency X [facility] ERT [id number] Univers 14:12:00 17:29:00 [facility] 2021-11-02 2021-11-02 Emergency [facility] 1.2.725.981 [id number] 1610 Univers 14:12:00 17:29:00 Harvey BRIONES 350.1.13.10 i ty [place] [id number] [facility] [address] 2021-09-22 2021-09-22 Imm/Inj Vaccine, [facility] B 1.2.840.114 [id number] Univers 12:00:25 12:10:25 Visit Thai Arita SPECIALTY 350.1.13.10 it[place] [id number] [place] delmysalud [place] [address] [place] [address] 2021-09-22 2021-09-22 Office Negrito [facility] 1.2.840.114 [id number] Univers 10:00:00 10:30:00 Visit Tyrone SPECIALTY 350.1.13.10 ity of [place] CARE 4.2.7.2.686 [place] CENTER AT [phone] Ks [address] 2021-09-22 2021-09-22 Outpatient Lisa [facility] [id number] Univers 10:00:00 10:00:00 TYRONE [facility] 2021-09-22 2021-09-22 Orders Doctor NEGRITO 1.2.840.114 [id number] Univers 00:00:00 00:00:00 Only Unassigned, NAMRATA 350.1.13.10 ity of [place] [facility] 4.2.7.2.686 [place] [id number] [address] 2021-06-19 2021-06-19 Orders Doctor NEGRITO 1.2.840.114 [id number] Univers 00:00:00 00:00:00 Only UnassignedNAMRATA 350.1.13.10 ity of [place] [facility] 4.2.7.2.686 [place] [id number] [address] 2021-05-25 2021-05-26 Emergency Janene Taylor [facility] 1.2.840.114 86 [id number] 18:28:00 00:07:00 Misa Briones 350.1.13.10 [place] 4.2.7.2.686 [place] [id number] 084 2021-05-25 2021-05-25 Emergency X Janene TAYLOR [facility] ERT [id number] 5302 [facility] 18:28:00 18:28:00 [facility] 2020-12-19 2020-12-19 Orders Doctor NEGRITO 1.2.840.114 [id number] 00:00:00 00:00:00 Only UnassignedNAMRATA 350.1.13.10 [place] [facility] 4.2.7.2.686 [id number] 009 2020-11-28 2020-11-28 Patient Sharon Bunn 1.2.840.114 [id number] 45 00:00:00 00:00:00 Outreach Micki Wilson 350.1.13.10 [place] 4.2.7.2.686 [id number] 403 2020-11-27 2020-11-27 Telephone Angie Aguilar 1.2.050.940 4309 3088 00:00:00 00:00:00 Gianni Teresa 350.1.13.10 [facility] 4.2.7.2.686 [id number] 093 2020-10-10 2020-10-19 Inpatient U LEROY [facility] [id number] 032 [facility] 10:35:00 00:30:00 [facility] 2020-10-06 2020-10-06 Outpatient Garcia, HCACL LABO [id number] [facility] 23:33:00 23:33:00 Sreekanth 59 [facility] 2020-10-04 2020-10-04 Emergency X DA PUTNAM [facility] ERT 1 [id number] Univers 14:21:00 14:21:00 DA PUTNAM ity [facility] 2020-10-03 2020-10-03 Emergency X [facility] ERT [id number] Univers 21:22:00 21:22:00 ity [facility] 2020-10-02 2020-10-02 Emergency X [facility] ERT [id number] Univers 16:14:00 16:14:00 [facility] 2020-09-26 2020-10-02 Inpatient X DIONE [facility] MAYI [id number] Univers 09:58:00 14:26:00 [facility]ESSICA [facility] 2020-09-20 2020-09-20 [facility] [id number] Univers 13:37:00 13:37:00 IRAM [facility] 2020-08-23 2020-08-23 Emergency X [facility] ERT [id number] Univers 17:57:00 17:57:00 [facility] 2020-05-02 2020-05-02 Emergency X [facility] ERT [id number] Univers 02:13:00 02:13:00 [facility] Results Test Description Test Time Test Comments Results Result Comments Source BASIC METABOLIC PANEL (NA, K, CL, CO2, GLUCOSE, BUN, 2022-08 23:25:30 CREATININE, CA) Test Item Value Reference Range Interpretation Comme nts NA (test code = 4923072634) 146 mmol/L 135-145 H K (test code = 3801533284) 3.6 mmol/L 3.5-5.0 CL (test code = 0063774076) 118 mmol/L 98-108 H CO2 TOTAL (test code = 1944901077) 25 mmol/L 23-31 AGAP (test code = 2796431664) 2-16 BUN (test code = 8591516924) 11 mg/dL 7-23 GLUCOSE (test code = 1291500876) 100 mg/dL 70-110 CREATININE (test code = 0.57 mg/dL 0.60-1.25 L 0092063888) CALCIUM (test code = 8174382383) 7.0 mg/dL 8.6-10.6 L eGFR (test code = 6761848120) mL/min/1.73m2 LU (test code = LU) Association [...] tests). Lab Interpretation (test code = Abnormal 10121-1) [facility]2022-[facility]-24 16:56:15 Test Item Value Reference Range Interpretation Comments POCT GLU (test code = 8890387195) 107 mg/dL 70-110 Lab Interpretation (test code = Normal 41329-7) [facility] Whole Lbodb5176-32-90 10:25:25 Test Item Value Reference Range Interpretation Comments LACTIC ACID (test code = 1.12 mmol/L 0.50-2.20 9550235585) Lab Interpretation (test code = Normal 18973-9) [facility]2022-08-24 01:47:16 Test Item Value Reference Range Interpretation Comments POCT GLU (test code = 0443059222) 110 mg/dL 70-110 Lab Interpretation (test code = Normal 00965-9) [facility]2022-11-01 01:35:31 Test Item Value Reference Range Interpretation Comments PHOSPHORUS (test code = 1077399797) 4.5 mg/dL 2.5-5.0 Lab Interpretation (test code = Normal 23206-7) [facility] (NA, K, CL, CO2, GLUCOSE, BUN, CREATININE, CA)2022-08-24 00:48:44 Test Item Value Reference Range Interpretation Comments NA (test code = 144 mmol/L 135-145 4237874722) K (test code = 2.3 mmol/L 3.5-5.0 LL 1357874055) CL (test code = 105 mmol/L 98-108 5885697217) CO2 TOTAL (test code = 28 mmol/L 23-31 2640170220) AGAP (test code = 2-16 5560725430) BUN (test code = 16 mg/dL 7-23 0585361767) GLUCOSE (test code = 73 mg/dL 70-110 1152690534) CREATININE (test code = 0.73 mg/dL 0.60-1.25 2244537979) CALCIUM (test code = 7.6 mg/dL 8.6-10.6 L 3445913946) eGFR (test code = mL/min/1.73m2 0887184321) LU (test code = LU) Association of [...] tests). Lab Interpretation Abnormal (test code = 36920-0) [facility]2022-[facility]-01 00:33:40 Test Item Value Reference Range Interpretation Comments MAGNESIUM (test code = 3246149176) 2.4 mg/dL 1.7-2.4 Lab Interpretation (test code = Normal 89034-9) [facility] WITH [id number] 00:21:20 Test Item Value Reference Range Interpretation Comments WBC (test code = See_Comment [Automated 8190-2) message] The sy stem which generated this result transmitted reference range : 4.20 - 10.70 10*3/?L. The reference range was not used to interpret this result as normal/abnormal . RBC (test code = See_Comment L [Automated 799-8) message] The sy stem which generated this result transmitted reference range : 4.26 - 5.52 10*6/?L. The reference range was not used to interpret this result as normal/abnormal . HGB (test code = 10.7 g/dL 12.2-16.4 L 718-7) HCT (test code = 32.1 % 38.4-49.3 L 4544-3) MCV (test code = 89.9 fL 81.7-95.6 787-2) MCH (test code = 30.0 pg 26.1-32.7 785-6) MCHC (test code = 33.3 g/dL 31.2-35.0 786-4) RDW-SD (test code = 59.5 fL 38.5-51.6 H 04692-6) RDW-CV (test code = 18.3 % 12.1-15.4 H 788-0) PLT (test code = See_Comment [Automated 777-3) message] The sy stem which generated this result transmitted reference range : 150 - 328 10*3/ ?L. The reference r alisson was not used to interpret this result as normal/abnormal . MPV (test code = 12.4 fL 9.8-13.0 15052-2) NRBC/100 WBC (test See_Comment [Automat ed code = 0125693797) message] The system which generated this result transmitted reference range : 0.0 - 10.0 /100 WBCs. The refer ence range was not u sed to interpret th is result as normal/abnormal . NRBC x10^3 (test code See_Comment [Auto mated = 6551288840) message] The s ystem which generated this result transmitted reference range : 10*3/?L. The reference range was not used to interpret this result as normal/abnormal . GRAN MAT (NEUT) % 59.6 % (test code = 770-8) IMM GRAN % (test code 0.30 % = 8439302386) LYMPH % (test code = 33.5 % 736-9) MONO % (test code = 5.8 % 5905-5) EOS % (test code = 0.4 % 713-8) BASO % (test code = 0.4 % 706-2) GRAN MAT x10^3(ANC) 4.67 10*3/uL 1.99-6.95 (test code = 1348513244) IMM GRAN x10^3 (test 0.00-0.06 code = 2073649152) LYMPH x10^3 (test code 2.62 10*3/uL 1.09-3.23 = 731-0) MONO x10^3 (test code 0.45 10*3/uL 0.36-1.02 = 742-7) EOS x10^3 (test code = 0.03 10*3/uL 0.06-0.53 L 711-2) BASO x10^3 (test code 0.03 10*3/uL 0.01-0.09 = 704-7) Lab Interpretation Abnormal (test code = 43233-7) [facility]2022-08-23 23:55:16 Test Item Value Reference Range Interpretation Comments POCT GLU (test code = 2465613711) 73 mg/dL 70-110 Lab Interpretation (test code = Normal 47059-5) [facility] METABOLIC PANEL (NA, K, CL, CO2, GLUCOSE, BUN, CREATININE, CA)2022-08-23 22:39:56 Test Item Value Reference Range Interpretation Comments NA (test code = 145 mmol/L 135-145 4871714880) K (test code = 2.3 mmol/L 3.5-5.0 LL 8737403943) CL (test code = 104 mmol/L 98-108 0047362426) CO2 TOTAL (test code = 31 mmol/L 23-31 2446513589) AGAP (test code = 2-16 6569483239) BUN (test code = 15 mg/dL 7-23 2819360331) GLUCOSE (test code = 38 mg/dL 70-110 LL 4501514670) CREATININE (test code = 0.69 mg/dL 0.60-1.25 8769076000) CALCIUM (test code = 7.7 mg/dL 8.6-10.6 L 6857028941) eGFR (test code = mL/min/1.73m2 8609480547) LU (test code = LU) Association of [...] tests). Lab Interpretation Abnormal (test code = 90350-4) [facility]2022-10-31 22:37:29 Test Item Value Reference Range Interpretation Comments PALB (test code = 34552-3) 9.3 mg/dL 18.0-45.0 L Lab Interpretation (test code = Abnormal 94936-9) [facility] FUN[facility] PAN[facility] (98413) (ALB,T.PRO,BILI T,BU/BC,ALT,AST,ALK PHOS)2022-08-23 22:27:43 Test Item Value Reference Range Interpretation Comments TOTAL BILI (test code = 5681243509) 0.6 mg/dL 0.1-1.1 BILI UNCON (test code = 2091152108) 0.2 mg/dL 0.1-1.1 BILI CONJ (test code = 6312834563) 0.0 mg/dL 0.0-0.3 T PROTEIN (test code = 9869506496) 6.4 g/dL 6.3-8.2 ALBUMIN (test code = 6067814449) 2.8 g/dL 3.5-5.0 L ALK PHOS (test code = 3581360500) 110 U/L 34-122 ALTv (test code = 1742-6) 12 U/L 5-50 AST(SGOT) (test code = 6520904737) 24 U/L 13-40 Lab Interpretation (test code = Abnormal 01365-4) [facility] WITHOUT [id number] 21:32:56 Test Item Value Reference Range Interpretation Comments WBC (test code = 6690-2) See_Comment [A utomated message] The system [facility] generated this result transmit annette reference range : 4.20 - 10.70 10*3/?L. The reference range was not used to interpret this result as normal/abnormal . RBC (test code = 789-8) See_Comment L [Au tomated message] The system [facility] generated this result transmit annette reference range : 4.26 - 5.52 10* 6/?L. The reference r alisson was not used to interpret this result as normal/abnormal . HGB (test code = 718-7) 10.9 g/dL 12.2-16.4 L HCT (test code = 4544-3) 34.2 % 38.4-49.3 L MCH (test code = 785-6) 29.2 pg 26.1-32.7 MCV (test code = 787-2) 91.7 fL 81.7-95.6 MCHC (test code = 786-4) 31.9 g/dL 31.2-35.0 PLT (test code = 777-3) See_Comment [Au tomated message] The system [facility] generated this result transmit annette reference range : 150 - 328 10*3/?L. The reference range was not used to interpret this result as normal/abnormal . MPV (test code = 12.3 fL 9.8-13.0 75919-4) RDW-CV (test code = 18.7 % 12.1-15.4 H 788-0) RDW-SD (test code = 62.3 fL 38.5-51.6 H 78338-8) NRBC x10^3 (test code = See_Comment [Au tomated message] 6440421184) The system [facility] generated this result transmit annette reference range : 10*3/?L. The reference range was not used to interpret this result as normal/abnormal . NRBC/100 WBC (test code See_Comment [Au tomated message] = 2841683180) The system [facility] generated this result transmit annette reference range : 0.0 - 10.0 /100 WBC s. The reference r alisson was not used to interpret this result as normal/abnormal . IPF % (test code = 1165232651) Lab Interpretation (test Abnormal code = 63050-6) [facility] GLUCOSE (AUTOMATED)2022-07-20 17:02:07 Test Item Value Reference Range Interpretation Comments POCT GLU (test code = 1696774984) 92 mg/dL 70-110 Lab Interpretation (test code = Normal 02842-2) [facility] GLUCOSE (AUTOMATED)2022-07-20 13:05:47 Test Item Value Reference Range Interpretation Comments POCT GLU (test code = 3588399997) 93 mg/dL 70-110 Lab Interpretation (test code = Normal 88544-6) [facility] GLUCOSE (AUTOMATED)2022-07-20 04:43:03 Test Item Value Reference Range Interpretation Comments POCT GLU (test code = 0208098563) 86 mg/dL 70-110 Lab Interpretation (test code = Normal 15836-2) [facility] GLUCOSE (AUTOMATED)2022-07-20 00:59:10 Test Item Value Reference Range Interpretation Comments POCT GLU (test code = 5268144890) 82 mg/dL 70-110 Lab Interpretation (test code = Normal 53807-6) [facility] GLUCOSE (AUTOMATED)2022-07-19 22:05:07 Test Item Value Reference Range Interpretation Comments POCT GLU (test code = 7416762093) 92 mg/dL 70-110 Lab Interpretation (test code = Normal 40184-0) [facility] GLUCOSE (AUTOMATED)2022-07-19 17:04:37 Test Item Value Reference Range Interpretation Comments POCT GLU (test code = 7513122944) 82 mg/dL 70-110 Lab Interpretation (test code = Normal 62090-9) [facility]2022-[facility]-26 15:57:55 Test Item Value Reference Range Interpretation Comments PHOSPHORUS (test code = 7961385639) 1.9 mg/dL 2.5-5 L Lab Interpretation (test code = Abnormal 81218-0) [facility] WITH [id number] 14:58:38 Test Item Value Reference Range Interpretation [...] RDW-SD (test code = 50.6 fL 38.5-51.6 53144-6) RDW-CV (test code = 15.6 % 12.1-15.4 H 788-0) PLT (test code = See_Comment [Automated 777-3) message] The sy stem which generated this result transmitted reference range : 150 - 328 10*3/ ?L. The reference r alisson was not used to interpret this result as normal/abnormal . MPV (test code = 12.4 fL 9.8-13 16635-8) NRBC/100 WBC (test See_Comment [Automat ed code = 5468905807) message] The system which generated this result transmitted reference range : 0.0 - 10.0 /100 WBCs. The refer ence range was not u sed to interpret th is result as normal/abnormal . NRBC x10^3 (test code See_Comment [Auto mated = 4173875516) message] The s ystem which generated this result transmitted reference range : 10*3/?L. The reference range was not used to interpret this result as normal/abnormal . GRAN MAT (NEUT) % 51.4 % (test code = 770-8) IMM GRAN % (test code 0.30 % = 9721559554) LYMPH % (test code = 37.0 % 736-9) MONO % (test code = 9.4 % 5905-5) EOS % (test code = 1.6 % 713-8) BASO % (test code = 0.3 % 706-2) GRAN MAT x10^3(ANC) 1.96 10*3/uL 1.99-6.95 L (test code = 7469838625) IMM GRAN x10^3 (test 0-0.06 code = 6626161547) LYMPH x10^3 (test code 1.41 10*3/uL 1.09-3.23 = 731-0) MONO x10^3 (test code 0.36 10*3/uL 0.36-1.02 = 742-7) EOS x10^3 (test code = 0.06 10*3/uL 0.06-0.53 711-2) BASO x10^3 (test code 0.01-0.09 = 704-7) ELLIPTO/OVAL (test 2+ See_Comment A [Automat ed code = 31170-8) message] The system which generated this result transmitted reference range : (none). The reference range was not used to interpret this result as normal/abnormal . REACT LYMPHS (test Rare code = 4809292302) GIANT PLATELETS (test Present See_Comment A [Auto mated code = 5908-9) message] The system which generated this result transmitted reference range : (none). The reference range was not used to interpret this result as normal/abnormal . Lab Interpretation Abnormal (test code = 39138-0) [facility]2022-07-19 12:58:00 Test Item Value Reference Range Interpretation Comments POCT GLU (test code = 5003795492) 93 mg/dL 70-110 Lab Interpretation (test code = Normal 52397-4) [facility] METABOLIC PANEL (NA, K, CL, CO2, GLUCOSE, BUN, CREATININE, CA)2022-07-19 11:17:35 Test Item Value Reference Range Interpretation Comments NA (test code = 136 mmol/L 135-145 4267121417) K (test code = 4.6 mmol/L 3.5-5 6860952312) CL (test code = 104 mmol/L 98-108 6554392719) CO2 TOTAL (test code = 29 mmol/L 23-31 2755296447) AGAP (test code = 2-16 0965152137) BUN (test code = 10 mg/dL 7-23 1640463310) GLUCOSE (test code = 82 mg/dL 70-110 6702661155) CREATININE (test code = 0.34 mg/dL 0.6-1.25 L 6583351146) CALCIUM (test code = 7.4 mg/dL 8.6-10.6 L 2516255931) eGFR (test code = mL/min/1.73m2 3612971486) LU (test code = LU) Association of [...] tests). Lab Interpretation Abnormal (test code = 51863-0) [facility] GLUCOSE (AUTOMATED)2022-07-19 09:13:05 Test Item Value Reference Range Interpretation Comments POCT GLU (test code = 3161005684) 94 mg/dL 70-110 Lab Interpretation (test code = Normal 85753-9) [facility] GLUCOSE (AUTOMATED)2022-07-19 06:14:35 Test Item Value Reference Range Interpretation Comments POCT GLU (test code = 6542134345) 82 mg/dL 70-110 Lab Interpretation (test code = Normal 74036-6) [facility] GLUCOSE (AUTOMATED)2022-07-19 02:01:34 Test Item Value Reference Range Interpretation Comments POCT GLU (test code = 5004068431) 90 mg/dL 70-110 Lab Interpretation (test code = Normal 81136-7) [facility] GLUCOSE (AUTOMATED)2022-07-18 21:21:09 Test Item Value Reference Range Interpretation Comments POCT GLU (test code = 2379971612) 84 mg/dL 70-110 Lab Interpretation (test code = Normal 97094-7) [facility] GLUCOSE (AUTOMATED)2022-07-18 16:34:48 Test Item Value Reference Range Interpretation Comments POCT GLU (test code = 4286313347) 79 mg/dL 70-110 Lab Interpretation (test code = Normal 22994-3) [facility] GLUCOSE (AUTOMATED)2022-07-18 13:16:05 Test Item Value Reference Range Interpretation Comments POCT GLU (test code = 6800045212) 81 mg/dL 70-110 Lab Interpretation (test code = Normal 17400-5) [facility] METABOLIC PANEL (NA, K, CL, CO2, GLUCOSE, BUN, CREATININE, CA)2022-07-18 11:18:39 Test Item Value Reference Range Interpretation Comments NA (test code = 136 mmol/L 135-145 2310581719) K (test code = 4.2 mmol/L 3.5-5 4655448088) CL (test code = 106 mmol/L 98-108 8070874337) CO2 TOTAL (test code = 31 mmol/L 23-31 0751757727) AGAP (test code = 2-16 L 4294006292) BUN (test code = 6 mg/dL 7-23 L 9962216293) GLUCOSE (test code = 87 mg/dL 70-110 7876951915) CREATININE (test code = 0.39 mg/dL 0.6-1.25 L 1008139258) CALCIUM (test code = 7.3 mg/dL 8.6-10.6 L 3897633712) eGFR (test code = mL/min/1.73m2 6037990914) LU (test code = LU) Association of [...] tests). Lab Interpretation Abnormal (test code = 70398-0) [facility] 11:17:04 Test Item Value Reference Range Interpretation Comments MAGNESIUM (test code = 4422292372) 1.5 mg/dL 1.7-2.4 L Lab Interpretation (test code = Abnormal 32806-5) [facility] 11:16:44 Test Item Value Reference Range Interpretation Comments PHOSPHORUS (test code = 2230000296) 1.8 mg/dL 2.5-5 L Lab Interpretation (test code = Abnormal 69248-2) [facility] GLUCOSE (AUTOMATED)2022-07-18 10:10:02 Test Item Value Reference Range Interpretation Comments POCT GLU (test code = 3881524110) 92 mg/dL 70-110 Lab Interpretation (test code = Normal 20526-5) [facility] GLUCOSE (AUTOMATED)2022-07-18 06:20:53 Test Item Value Reference Range Interpretation Comments POCT GLU (test code = 1514167862) 84 mg/dL 70-110 Lab Interpretation (test code = Normal 92352-2) [facility] GLUCOSE (AUTOMATED)2022-07-18 01:45:08 Test Item Value Reference Range Interpretation Comments POCT GLU (test code = 7773253802) 76 mg/dL 70-110 Lab Interpretation (test code = Normal 07913-3) [facility] GLUCOSE (AUTOMATED)2022-07-17 21:42:53 Test Item Value Reference Range Interpretation Comments POCT GLU (test code = 6318492971) 81 mg/dL 70-110 Lab Interpretation (test code = Normal 67055-2) [facility] GLUCOSE (AUTOMATED)2022-07-17 21:42:48 Test Item Value Reference Range Interpretation Comments POCT GLU (test code = 2349960808) 81 mg/dL 70-110 Lab Interpretation (test code = Normal 47653-7) [facility] GLUCOSE (AUTOMATED)2022-07-17 16:49:36 Test Item Value Reference Range Interpretation Comments POCT GLU (test code = 9536793808) 90 mg/dL 70-110 Lab Interpretation (test code = Normal 83216-7) [facility] GLUCOSE (AUTOMATED)2022-07-17 13:06:55 Test Item Value Reference Range Interpretation Comments POCT GLU (test code = 9471754700) 80 mg/dL 70-110 Lab Interpretation (test code = Normal 74945-4) [facility] GLUCOSE (AUTOMATED)2022-07-17 05:27:10 Test Item Value Reference Range Interpretation Comments POCT GLU (test code = 4757742704) 84 mg/dL 70-110 Lab Interpretation (test code = Normal 04945-1) [facility] GLUCOSE (AUTOMATED)2022-07-17 01:14:31 Test Item Value Reference Range Interpretation Comments POCT GLU (test code = 9675460391) 69 mg/dL 70-110 L Lab Interpretation (test code = Abnormal 48009-9) [facility] GLUCOSE (AUTOMATED)2022-07-16 21:38:28 Test Item Value Reference Range Interpretation Comments POCT GLU (test code = 0024442657) 74 mg/dL 70-110 Lab Interpretation (test code = Normal 39644-9) [facility] GLUCOSE (AUTOMATED)2022-07-16 16:43:07 Test Item Value Reference Range Interpretation Comments POCT GLU (test code = 9967523669) 86 mg/dL 70-110 Lab Interpretation (test code = Normal 94216-7) [facility] GLUCOSE (AUTOMATED)2022-07-16 09:36:35 Test Item Value Reference Range Interpretation Comments POCT GLU (test code = 5710561868) 81 mg/dL 70-110 Lab Interpretation (test code = Normal 32204-0) [facility] GLUCOSE (AUTOMATED)2022-07-16 05:25:22 Test Item Value Reference Range Interpretation Comments POCT GLU (test code = 2166726593) 90 mg/dL 70-110 Lab Interpretation (test code = Normal 24831-0) [facility] GLUCOSE (AUTOMATED)2022-07-16 01:27:18 Test Item Value Reference Range Interpretation Comments POCT GLU (test code = 0275155050) 90 mg/dL 70-110 Lab Interpretation (test code = Normal 32206-2) [facility] GLUCOSE (AUTOMATED)2022-07-15 22:50:24 Test Item Value Reference Range Interpretation Comments POCT GLU (test code = 3427411311) 86 mg/dL 70-110 Lab Interpretation (test code = Normal 18146-1) [facility] GLUCOSE (AUTOMATED)2022-07-15 21:56:15 Test Item Value Reference Range Interpretation Comments POCT GLU (test code = 2187776090) 83 mg/dL 70-110 Lab Interpretation (test code = Normal 67652-3) [facility] GLUCOSE (AUTOMATED)2022-07-15 17:34:16 Test Item Value Reference Range Interpretation Comments POCT GLU (test code = 3290385245) 83 mg/dL 70-110 Lab Interpretation (test code = Normal 82994-6) [facility] GLUCOSE (AUTOMATED)2022-07-15 13:47:19 Test Item Value Reference Range Interpretation Comments POCT GLU (test code = 8002038663) 78 mg/dL 70-110 Lab Interpretation (test code = Normal 61853-5) [facility] GLUCOSE (AUTOMATED)2022-07-15 05:06:41 Test Item Value Reference Range Interpretation Comments POCT GLU (test code = 3290217284) 78 mg/dL 70-110 Lab Interpretation (test code = Normal 86898-4) [facility] GLUCOSE (AUTOMATED)2022-07-15 01:20:38 Test Item Value Reference Range Interpretation Comments POCT GLU (test code = 2814145721) 89 mg/dL 70-110 Lab Interpretation (test code = Normal 66506-5) [facility] GLUCOSE (AUTOMATED)2022-07-14 21:10:53 Test Item Value Reference Range Interpretation Comments POCT GLU (test code = 0919623256) 88 mg/dL 70-110 Lab Interpretation (test code = Normal 93940-4) [facility] IRON BINDING [id number] 20:58:10 Test Item Value Reference Range Interpretation Comments TIBC (test code = 8916419098) 91 ug/dL 250-410 L Lab Interpretation (test code = Abnormal 46552-7) [facility] GLUCOSE (AUTOMATED)2022-07-14 16:20:20 Test Item Value Reference Range Interpretation Comments POCT GLU (test code = 0984493572) 79 mg/dL 70-110 Lab Interpretation (test code = Normal 63476-4) [facility] GLUCOSE (AUTOMATED)2022-07-14 12:47:35 Test Item Value Reference Range Interpretation Comments POCT GLU (test code = 6960362718) 70 mg/dL 70-110 Lab Interpretation (test code = Normal 37616-9) [facility] GLUCOSE (AUTOMATED)2022-07-14 09:08:20 Test Item Value Reference Range Interpretation Comments POCT GLU (test code = 5668866991) 100 mg/dL 70-110 Lab Interpretation (test code = Normal 34617-0) [facility] GLUCOSE (AUTOMATED)2022-07-13 22:29:45 Test Item Value Reference Range Interpretation Comments POCT GLU (test code = 2638497834) 90 mg/dL 70-110 Lab Interpretation (test code = Normal 76926-8) [facility] [id number] 21:45:17 Test Item Value Reference Range Interpretation Comments Case Report (test code Surgical Pathology ? ? = [id number]) ?Case: [id number] ? Authorizing Provider: ?German Bowling MD ? Collected: ? 07/11/2022 1528 ?Ordering Location: ? ? [facility] ? ? ?Received: ?07/11/2022 1829 ? [facility] ?Pathologist: ? Laila Ybarra MD PhD ?Specimen: ? ?SMALL INTESTINE, stitch distal ? Final Diagnosis (test o8agrCTcSRNmt6gpEISpuS code = 7972476530) FuZzEwMzNcZnRuYmpcdWMx IHtccnRmMVxlcGljMTAxMD TpTJ6xkGfsrHe4oZebHMWr nwF5oGKbLOzsx8zrBAI1x5 vgjukkQCGeVZjlQc8teUNk bWinFiBbOXSfIHt0zU14CB ReoE9hrCLrLLl0NORmiHHt kqVhQnAfHGKamLPfzFZ9NJ XaSD7fjqrrFCdzWDpeXLFp maJ6TCFbeSEtM1VyMJTlAT 4ernceWUU9JTtjKPEmSWD4 HwJdKNJdc9Kpmtb1HqJgnV FyZFxwbGFpblxmczIwXHBh ciBBLiBTTUFMTCBJTlRFU1 VOJtYzYNJJC8KEGDbZPdfh gQQqHBJzHUAcGPEYW74IEx SSBKMPZ4HQVP1PDaELToZL EzpHGMGvZ6fJXNNAQqBNF4 2IMxKJNCqGLy0OXcOYCK6F IUXBQCFPEKZDK1vQBGPtWH BhciAgICAgICBTRUNPTkRB HupkEY3xLR3OHKRQSYIPCE VOTQ2CNMIaypMzVQLaGVEZ INRRGOQoGHLPG0jAAlGVFo AXZSSMT5MWE71efOPgSKQy NNRpQQ3FXYXBS4XOLCGDCY AFJvCPKMyER16EQaSEILcR QBbNDO3FPLHLLWMhaNRpZI NgVTBoKEMBZmISGY2YO98v MIvEMDbqMa7MBMWdGD6IK8 XIINHMSKWBSyXBIHyHI56N TkNZXHBhclxwYXJcZnMyMi BKdWFuIENhcmxvcyBBbHZh twN8HQ3fydZlobcfZRWgNS qhQfLqFlRoPiEdRvb3WjSQ QFxwEPCvRaAkSVerBXS3j5 xydGYxXHNzdGVjZjIyMDAw NHJxy7jrRVUsfWAgEtOyQa NcZnRuYmpcdWMxXGRlZmYw j9vgj943mLRmv7gyOJOuWq D4vBRmGYAgxCzesft3kLpu IoSqMMLzb1aevxFkIlNwCW DgJIMsONQasTZaZ983KTJu YNxcs2fzk9EpDMXysGEgr5 W6SRQQLGheWzPqI632x2yf d4sywfNxwDA0VEZjLRZ1NS oeggDkznP9EFljuICqZxW0 IDtccmVkMFxncmVlbjBcYm f1ZLTcX870UGL5xFhhj6uh PBF2FAJbPUVmSvcrLu9euA VsY034JIAdPQMYGEJhcAs2 TUSwavEdslJfoDCDs483W7 36m1cfHRWsnkUrvLgUfapi f1haP077TIZnpJJrukWnVw XhZROxyRUanFF8CCRmGB1c hebrPLnrSAudKQTbwuR3OS YigYPnL1DvEOAyZH3gexkp CXW4VWiaARVeIOO6OeEeKE Pll9Aoszv9MtYcrt3kof32 KVS6j7KsbSyfQOE6ZUJ8Ay OqMw9fcIOgMWIjFG7kIuLu yLNyGAPmse40dFxpPWcveh NfsN1hZaJiVLLslCLgZUTv XU6feOVjXOActK8cduwgHG BnYnJkcmhlYWRccGdicmRy Fi4roCpcFWI0WFehD9knwV 8sIqL8LEedK1ufvG1fGZw8 XSkpkNJ2RAXhmI0eRC3wzd bzi2ukFKasEDvpXBJnnoE3 sdI0OMTirXNbS6JopI4oPS YbSO2stialk8ovXER0KLvh DWJpBNB4PyMjLEBgz7Voau d4HfLhs8OsnVItMIxhN84q m039TWIrkxNwL2gloYKftw ozbUWcdrxoLIesgfE0QTEb XHBsYWluXGYxXGZzMjBcbG FuZzEwMzNcaGljaFxmMVxk OzKvRMBgOLliQ6dxXaYjC0 YyXGZzMjBccGFyIEkgaGF2 EIVzFBGtv41abAs5DJGxvm fkj5CrHVJmmSSzvWZomT1g azQxq1vbXJTrZIYbJNGtY4 EoGWK2wWUsRKNshWLvySU2 WL5ikyOuSF9jVOYaOpyvan BcwQFseyBvZOAlDIdhy1zf RC5jOECxmGcfpE6cjKF2EV Sgv8wliAGqaXAvh3bec4Wl bmFtZShzKSBtYXkgYXBwZW WeEZ9uHATdlNUwewGup6A1 LcwikYRqjnzsXpnnisE1XM thvypdIXSsYCevO1yhAsSo UXFcsQhnNetll1KzZXUwGC ZzMjhccGFyfX0= Clinical Information Small bowel (test code = obstruction 6292763354) Gross Description (test v5ketQOkSHDzqZGBXCBqID code = 9763644035) TlQJ1lmEjuoUc5bEctCBRn atM0cVTmALreq0njQNI3a6 llbiANClxkZWZmMVxwYXBl nbdsHlI5UMpmJHWpulqzFU y0FYqqQUObgWH1ADDmvPXs S3YkBYEkZT4teyt1FKG5DM clRPRzEwK1VWLpEoYwPyiz RBe6CLEtlqU5Pgt2LYPfAU OltCPbf5N0NQgngdpcBVWs iCVsY453WFk4PIYutY6gxY FeN4wpMRWaNGxfFPUiGMiw mRVlVSq3QFwtb6AnlCKiHT pccGFyZCANCntcKlxlcGlj g0EeeYUuXRdgEXOwJJGjGR inksqcMNt3QMRrVFxmdDAt ZO4npMlcAlnvsDycj4YleQ BcXGlkIDUxMDAyIFxcZGIg JL8BHoZaNSD7LNN8JsTcHJ r6HBa9RT5GOeRdJNKaPXEb AqR9AHEoWQx1RJdrRS2RXR V0Zrg7CQQ6ODUvEGGkGhRn LIy8QUYgMXaoBNVvlHOmHW ymJkWbUMWcJIqqhNJuXJ1x fVxwbGFpblxmczIwIFNQRU NSKATWDRUpvIPhDU9DRAWj QQfaDGLyyIMZBRT2BN8zXA ANClxsdHJwYXJcbGluMFxy gV0kIH3TSEv0uhLbXWJhVv ViZ3YzR8axJY3uYELslhMh MEYywJZyFOAtpjXxs9EzGR olewrfcHMuAJtjCSK4gSRb JYLpMNOkNTPxLZ80J7Wwfo FtZSwgVUggbnVtYmVyLCBh bmQgZGVzaWduYXRlZFxjZj QsYJf6BYFjUFCzPqndw6Bj yCUmPTOzt6MepAk6OZCcXL ZyZsc1DUyaLREfLYWwX72e pqDan1Xyy61fkJxsoX42WB R1xD7wNZtvHU82KIJzHKbq MBxxnls1hPO3VGYjXXZitS LbkkEalKOilP1qODSpvtWr ICSfuULrlTQtLNC8GQXjC4 xhIU5aUDNaRUBnrajezsWq TIJ2wLFlWPZlf5Y1qYLeDN E0YTCoSDHgxDA1VZviDK6n YjYFwPIkSXBzioKiGAE8gE AoSRYjrbIoPP25GL2mJPGl GZAph5rpxRU7LMgpBJTvDK TrvUIbmm1dZXKnFQFwiIE9 BDdjnDMyB7qqNLZbDII6lB GmCVHupaVsYKOvyX3nUCVf HI1vCINsfg79mOo2GLHnrj ZzLE7aVLAjl9McOMhizFmr aVAgu8TsqTInUcZvGI6fEE SzFEHmp29htSzbVQXbz0ep cCOqQPMaLW0oNUzpRIBcEE VxuDFzVEzqSS9lWL2xSHB7 rqUzMGOiVOizsT5jrkNaKy NinBHss9HkVN9yNVwqzG2g mcfyJ6HpM33aeaHdyG9gRE hfCnN7trPsNESoGB8jHMXr PQCyZNC4bXCudrEqAQbjzo NhHEHxwm0zFLkaMR0lo6Jk dGVyeSBpcyBwYWxwYXRlZC Ujs7HyvEbbOSXfx0VsQzrk XRr6fPBfIM8qWZIhW8DgEO krFXHcvr7dP1HoBAHfaQDo mG9lrCkyFQEfsfJtbT1udk EbehGaATUwHUrcBS03WQ8s HNNma0SkAWkzVhNrF06xgI 4bzHQtZ0HxTQnaHd4aJKXz QDGcGV2opNLkWAFmjECtkO LtIWR2TP5lJFQlyiHwTB8s HW8hYI7zLBRqcBznQW93jB MsKCZvOE3iUmWrnmWnNG41 TXPylwJba8MwdLajaeVaGC MeGPR5Lp7viFAxXEBhhtJK BI7SPs9ktGTkKX8KAITrjt ENZoBeUzRPINFhM7fuVFMc bWFsbCBmcmFnbWVudCBvZi Llg7bkxUkuw3WmdLlgPOQm OFDdsO1eRYVzaXqtVQs0FG BhciANCkEyLUEzOiBMYXJn XHJqOIfvXT94FO9cXAXev2 KfNVUjir64qG2xfMMhHUFb pU6fEKXrgUmjKCa9BUMzgx EIYjQ3SvULMTSzSMPpBTua YO88CF9pAQVws1SfWLSerD U8WUrxtJCvV0qtEQRvltJi cmVseVxwYXIgDQpBNTogU2 EaxWhtyyAgcLA2eQPxc0D3 dXJlZCBhcmVhIDQuMCBjbS Dmop0yFNUng6XcnNFcJXMv tE5dvEDpAO5MKZV7XPUxW2 Tav34cm8RixJPzVRynvEKk IIVdBZRmr6PsLk63UPqoc8 QorIRtSuWrCF3iQPYmEVWo m91ztUbwJIZhe9xlaIKuTT XnWGnmSWNfWQiHKribHL7z siGteWVrPKHgs7ezkCS4JV nlWFUarsDYNdE8HiJYk74y rHojpJnnjx2qZSCgXM4dgJ NacOEbUXP3cN4zUWwpOEMu FVqikOWwWI7GWETpTFYRiW llZXNoYSBXaWxoZWxtLCBN RCANClxlcGljTmVzdERvYz PkzqG1QUJgbIRcDZJ8DK0m RLLsrqwcQWMzNGLqVVG6YR choI16rADcLBXfCMNqsMAi tPwcoYPrtpCIGzamyB0yYf Dur3xueOx0CYUKWppmfLLy epasvsG3CHAvy4gnuImxs8 VunHOuPP7uxIpqcE4bMgZs NiANCn0= Disclaimer (test code = d3sdvHNfKOSog4gcPTCrbG 9094285914) FuZzEwMzNcZnRuYmpcdWMx RGwhyvBrLQcse5TnL6HeSu AwMFxhbnNpXGRlZmxhbmcx XDNcHWD9dvLkZBBuVUgdTW BxNDxjLj0wcZDauPntBoYk BGLnf4bcjuGZCCcqXiLcZ0 40UGRdLYmti1gzr3SlBXAx oZYyp5C2IKBXvnhbtFd5qJ imN51tm0H6XelzZ2emCXQh XMYoX8JbVO0iJGXcYdn4EL N6DPY4GMWmQJDlH5ZdMJ3o UCRaxGJwMJw4d3gxrPugCO UnJPY5o2tgPNtbfzPvUJ1i am6sqAg4v0yktrWzKMAtTN RzkEOIAUBwX8BhvLexHx4g vAm6bBzwNhduITC6Oja6JH 0tmu19xdb1aCdpAEDlvkdj QeL0XAkpXBLsnwybSWi3HC rdFOTgmIB0EVGcvTUqQ6Jc ZAQcTI2qvrh8RXK2ZHfjCF NcEtP2HAKyaRSiHPPutScg ROgur993VPX3ShEsIO7lL6 Emy9I4yZ4dlKFmTHXpbQLl HwFoLKNsxk3ylXGaBDjqc6 UtIGT7waE4rSLddRKmPRGe DK35Dhroc5BzDiucs9MfB3 3kiEK9KEpit3pdWR1zGzX9 ipDrHCbts6tjoG6dUoP5FE dnAF5jUU8xPPNoeO3ujnol XHBnYnJkcmhlYWRccGdicm UfJr3wxYlbUUP4XWplF4cf pV7zXlI3DAnmM7spsG4tEO y8ISrapXZ9QQXyaC6oMS0j grgfw4tqVBdnRObvHXAbhx Y0imU0BFHkfQZkL1CtpR4g SUXaOJ0ohtaqm7rpWRR4AM zoOFLkREM7OkSgJANzm1Bg hcm5NdHzr4UsnZOaOYazX6 0yl796GAPytlFjQ6kpuSFj vqfqwXQnkitmVXgzkvR5NI CxjmFdp2ArRAOhCIA7ERhr IZmdpLOeGUJqxQiiq8yzZ9 RscGFyXHBsYWluXGYxXGZz MjBcbGFuZzEwMzNcaGljaF ltFBiqKwMpMAOqYBxuK4of YwEzV8CaICZmMfMykEUbY3 ggVGhpcyByZXBvcnQgbWF5 GOcdS0m9MJYkbjScfAr3vn CjXqOsISPnMLT9IHgwgUWf QCUpp0OkecxjsQRnHe7xvV SvJMTfoD2gVYWeRETgENkl HI6dfKw6CWDXdDNwoKBeKs WQTALrAQ54wjAsFCRZdfhx p2G3VYlcYLArm3PwsJKqM1 eip2OtAZGiw56fRD6yy1R1 g5xgNTF4UI3nv4LgXENzhB DytQFjXVOrd1Smnkudg6Gc JUMnwyEki6MyIXBxdkHxoP MhILZzvjLoet2mljBoMDIi IQNeT9VssfsuzWpayeUbSU Kpwb8fhkTtSTA8OVQQAGUj JZYbe1PiyY0npOHBETE3yS Vwap0rctRMrZKeXENbsg26 CHAzUJ2zX3bhBXIfILJeuq BstYEwu9JvFHSwbVK5zRUo GP0ZFnPHu74eENRtHWQTwz GsJLZarKigvTN5zfC2tL6r IChGREEpLlx+IFRoZSBGRE ZnZF9cifUhq4WfpgTxhTbd VRKqkHPil1EmlVElc3BuwO zke9QgkFBnxAUwHR2tJZUs clxwYXIgVVRNQiBMYWJvcm X7j9BdXGBvYABtUUM5lLvs wgp0GKMqzZ3kCGUbN5kevr cfJFtrRZCzx5EloM9yqYWO fROek1TfiOCgyMSDbFHdPP 9pxrVqMMrJOXfIBTK0ipYe TEBqm8JhWMgvW7svK72lpB farFx0kYA5SFC4aE0vEwh+ IFxwYXJccGFyIEFwcHJvcH LoZLMurPhkuqTnK4UqonKl mL6faIFbwoUzYU0fHS2wG0 V9gHDrCRIunpNfv5ykEKow dmUgYmVlbiByZXZpZXdlZC Upw8DbLLggMDZ7VLrfvyKb bmNsdWRpbmcgSCZFLCBTcG PuhPNlKXZ8PVtmamEhjjXm CJ2tiF5pkLrtbU2ubGTbvX T8dmrpNSUfBSKyoSmyFUEp BU1ixQMlZNVsjoTYwCwcaY KqqL5nE0SvULKcGTXvoh0s QRNngZ6xAYeey8XwuoqtLY ZeHWLvRPIdduOqkc0sOAHr nUPYUX9HCIcmwYSxd0Qbrh TkB3hPTRA0RYWbMmUyZjqu PBZbrJTzeWSoNKPlbn43BG MzcW9ytSnsZLMviT8glY7e aNjyxX1nPePaAoYnMTtlEO 2mBRKaE5zooIVqICQgSAIj A8nfFrBzaY1cvZicHNgkTx VbJpJqNLlpNPX5nS== Embedded Images (test code = 9733419029) [facility] GLUCOSE (AUTOMATED)2022-07-13 21:03:47 Test Item Value Reference Range Interpretation Comments POCT GLU (test code = 7882174996) 57 mg/dL 70-110 L Lab Interpretation (test code = Abnormal 48630-3) [facility]:38:36 Test Item Value Reference Range Interpretation Comments PALB (test code = 50881-4) 4.1 mg/dL 18-45 L Lab Interpretation (test code = Abnormal 89506-2) [facility] GLUCOSE (AUTOMATED)2022-07-13 15:52:08 Test Item Value Reference Range Interpretation Comments POCT GLU (test code = 3700034184) 167 mg/dL 70-110 H Lab Interpretation (test code = Abnormal 49841-6) [facility] GLUCOSE (AUTOMATED)2022-07-13 15:18:37 Test Item Value Reference Range Interpretation Comments POCT GLU (test code = 0973836847) 160 mg/dL 70-110 H Lab Interpretation (test code = Abnormal 10782-9) [facility] WITH [id number] 15:11:15 Test Item Value Reference Range Interpretation Comments WBC (test code = See_Comment [Automated message] 9490-2) The system [employer] generated this result transmitted ref erence range: 4.20 - 1 0.70 10*3/?L. The reference range was not used to int erpret this result as normal/abnormal . RBC (test code = See_Comment L [Automated message] 789-8) The system [employer] generated this result transmitted ref erence range: [...] (test code = 56.9 fL 38.5-51.6 H 80260-7) RDW-CV (test code = 17.2 % 12.1-15.4 H 788-0) PLT (test code = See_Comment [Automated message] 587-3) The system [employer] generated this result transmitted ref erence range: 150 - 32 8 10*3/?L. The reference range was not used to int erpret this result as normal/abnormal . MPV (test code = 11.3 fL 9.8-13 29947-6) NRBC/100 WBC (test See_Comment [Automat ed message] code = 3174500811) The syste [employer] which generated this result transmitted ref erence range: 0.0 - 10 .0 /100 WBCs. The reference range was not used to int erpret this result as normal/abnormal . NRBC x10^3 (test See_Comment [Automated message] code = 1137903245) The syste m which generated this result transmitted ref erence range: 10*3/?L. The reference range was not used to int erpret this result as normal/abnormal . GRAN MAT (NEUT) % 75.1 % (test code = 770-8) IMM GRAN % (test 0.40 % code = 4506813462) LYMPH % (test code = 18.0 % 736-9) MONO % (test code = 5.1 % 5905-5) EOS % (test code = 1.3 % 713-8) BASO % (test code = 0.1 % 706-2) GRAN MAT x10^3(ANC) 5.26 10*3/uL 1.99-6.95 (test code = 0611081094) IMM GRAN x10^3 (test 0.03 10*3/uL 0-0.06 code = 5345481823) LYMPH x10^3 (test 1.26 10*3/uL 1.09-3.23 code = 731-0) MONO x10^3 (test 0.36 10*3/uL 0.36-1.02 code = 742-7) EOS x10^3 (test code 0.09 10*3/uL 0.06-0.53 = 711-2) BASO x10^3 (test 0.01-0.09 code = 704-7) ELLIPTO/OVAL (test 2+ See_Comment A [Automat ed message] code = 21211-3) The system [employer] generated this result transmitted ref erence range: (none). The reference range was not used to int erpret this result as normal/abnormal . HGB C CRYSTALS (test Suggestive of Red bl ood cell code = 7697510137) morpholog y suggestive of Hemoglobin C crystals. Hemog lobin electrophoresis recommended for confirmation. SCHISTOCYTES (test 1+ A code = 800-3) TARGET CELLS (test 2+ See_Comment A [Automat ed message] code = 38665-1) The system [employer] generated this result transmitted ref erence range: (none). The reference range was not used to int erpret this result as normal/abnormal . BANDS (test code = Increased A 9759003430) DOHLE BODIES (test Present A code = 7792-5) Lab Interpretation Abnormal (test code = 66996-8) [facility] GLUCOSE (AUTOMATED)2022-07-13 15:03:40 Test Item Value Reference Range Interpretation Comments POCT GLU (test code = 1011348689) 34 mg/dL 70-110 LL Lab Interpretation (test code = Abnormal 65564-4) [facility] METABOLIC PANEL (NA, K, CL, CO2, GLUCOSE, BUN, CREATININE, CA)2022-07-13 14:55:02 Test Item Value Reference Range Interpretation Comments NA (test code = 151 mmol/L 135-145 H 6469730403) K (test code = 3.0 mmol/L 3.5-5 L 5614468885) CL (test code = 120 mmol/L 98-108 H 1809674512) CO2 TOTAL (test code = 26 mmol/L 23-31 4817018364) AGAP (test code = 2-16 2117008599) BUN (test code = 17 mg/dL 7-23 2779493740) GLUCOSE (test code = 34 mg/dL 70-110 LL 9967158072) CREATININE (test code = 0.76 mg/dL 0.6-1.25 9326361095) CALCIUM (test code = 7.8 mg/dL 8.6-10.6 L 4367961398) eGFR (test code = mL/min/1.73m2 8978822643) LU (test code = LU) Association of [...] tests). Lab Interpretation Abnormal (test code = 98416-2) [facility] 14[facility]:59 Test Item Value Reference Range Interpretation Comments MAGNESIUM (test code = 8674722820) 2.1 mg/dL 1.7-2.4 Lab Interpretation (test code = Normal 36736-5) [facility] 14:49:59 Test Item Value Reference Range Interpretation Comments PHOSPHORUS (test code = 0094781728) 2.7 mg/dL 2.5-5 Lab Interpretation (test code = Normal 50360-6) [facility] 22:45:16 Test Item Value Reference Range Interpretation Comments PALB (test code = 80877-0) 5.1 mg/dL 18-45 L Lab Interpretation (test code = Abnormal 11465-4) [facility] + Lactic [id number] 20:56:10 Test Item Value Reference Range Interpretation Comments PH (test code = 2) 7.35-7.45 L PCO2 (test code = See_Comment H [Automate d 8432328815) message] The sy stem which generated this result transmitted reference range : 35 - 45 mmHg. The reference range was not used to interpret this result as normal/abnormal . PO2 (test code = See_Comment H [Automated 6089165108) message] The sy stem which generated this result transmitted reference range : 80 - 100 mmHg. The reference range was not used to interpret this result as normal/abnormal . HCO3 (test code = See_Comment [Automate d 1327150797) message] The sy stem which generated this result transmitted reference range : 22 - 26 mEq/L. The reference range was not used to interpret this result as normal/abnormal . BE (test code = See_Comment L [Automated 9162561272) message] The sy stem which generated this result transmitted reference range : -3.0 - 3.0 mEq/ L. The reference r alisson was not used to interpret this result as normal/abnormal . THB (test code = 8.0 g/dL 13.5-18 LL 5310054090) %O2HB (test code = 96.3 % 94-99 9803916283) %COHB ART (test code = 0.5 % 0-1.5 6635355056) %METHB ART (test code = 0.3 % 0.4-1.5 L 1486578834) VOL%O2 ART (test code = 11.1 % 15-23 L 7845512354) NA (test code = 145 mmol/L 135-145 4307609530) K+ (test code = 3.6 mmol/L 3.5-5 9545925618) AC CA IONZ (test code = 5.30 mg/dL 4.5-5.3 0150433560) GLUCOSE (test code = 163 mg/dL 70-110 H 3681800904) LACTIC ACID (test code 0.49 mmol/L 0.5-2.2 L = 8704258059) Lab Interpretation Abnormal (test code = 42858-9) [facility] + Lactic [id number] 20:56:10 Test Item Value Reference Range Interpretation Comments PH (test code = 2) 7.35-7.45 L PCO2 (test code = See_Comment H [Automate d 4139928575) message] The sy stem which generated this result transmitted reference range : 35 - 45 mmHg. The reference range was not used to interpret this result as normal/abnormal . PO2 (test code = See_Comment H [Automated 9347902406) message] The sy stem which generated this result transmitted reference range : 80 - 100 mmHg. The reference range was not used to interpret this result as normal/abnormal . HCO3 (test code = See_Comment [Automate d 5180772859) message] The sy stem which generated this result transmitted reference range : 22 - 26 mEq/L. The reference range was not used to interpret this result as normal/abnormal . BE (test code = See_Comment L [Automated 3963879321) message] The sy stem which generated this result transmitted reference range : -3.0 - 3.0 mEq/ L. The reference r alisson was not used to interpret this result as normal/abnormal . THB (test code = 8.0 g/dL 13.5-18 LL 1624520650) %O2HB (test code = 96.3 % 94-99 5829038168) %COHB ART (test code = 0.5 % 0-1.5 7471474156) %METHB ART (test code = 0.3 % 0.4-1.5 L 3167424280) VOL%O2 ART (test code = 11.1 % 15-23 L 4974419757) NA (test code = 145 mmol/L 135-145 7210045146) K+ (test code = 3.6 mmol/L 3.5-5 8467896615) AC CA IONZ (test code = 5.30 mg/dL 4.5-5.3 6155391285) GLUCOSE (test code = 163 mg/dL 70-110 H 7988214853) LACTIC ACID (test code 0.49 mmol/L 0.5-2.2 L = 1614045066) Lab Interpretation Abnormal (test code = 57058-1) [id number]12:23 Test Item Value Reference Range Interpretation Comments LACTIC ACID (test code = 1.23 mmol/L 0.5-2.2 7560507109) Lab Interpretation (test code = Normal 75434-7) [facility] Ccpvg4159-36-88 16:12:23 Test Item Value Reference Range Interpretation Comments LACTIC ACID (test code = 1.23 mmol/L 0.5-2.2 9753830153) Lab Interpretation (test code = Normal 25813-9) [facility]. METABOLIC PANEL (87196)2022-07-10 00:41:51 Test Item Value Reference Range Interpretation Comments NA (test code = 137 mmol/L 135-145 0115304266) K (test code = 2.6 mmol/L 3.5-5 LL 6203325727) CL (test code = 93 mmol/L 98-108 L 9109878739) CO2 TOTAL (test code = 31 mmol/L 23-31 7172399723) AGAP (test code = 2-16 1248125010) BUN (test code = 28 mg/dL 7-23 H 0630010245) GLUCOSE (test code = 140 mg/dL 70-110 H 6871298493) CREATININE (test code = 2.04 mg/dL 0.6-1.25 H 5554412087) TOTAL BILI (test code = 0.6 mg/dL 0.1-1.8 7212296683) CALCIUM (test code = 7.6 mg/dL 8.6-10.6 L 0650632572) T PROTEIN (test code = 7.3 g/dL 6.3-8.2 8614702442) ALBUMIN (test code = 3.2 g/dL 3.5-5 L 4270380417) ALK PHOS (test code = 146 U/L 34-122 H 8077592016) ALTv (test code = 13 U/L 5-50 1742-6) AST(SGOT) (test code = 17 U/L 13-40 6846996528) eGFR (test code = mL/min/1.73m2 9307448248) LU (test code = LU) Association of [...] tests). Lab Interpretation Abnormal (test code = 69492-2) [facility]. METABOLIC PANEL ([id number])2022-07-10 00:41:51 Test Item Value Reference Range Interpretation Comments NA (test code = 137 mmol/L 135-145 7022310973) K (test code = 2.6 mmol/L 3.5-5 LL 7754978437) CL (test code = 93 mmol/L 98-108 L 5494640633) CO2 TOTAL (test code = 31 mmol/L 23-31 3406935166) AGAP (test code = 2-16 8492144119) BUN (test code = 28 mg/dL 7-23 H 0267430058) GLUCOSE (test code = 140 mg/dL 70-110 H 1688033863) CREATININE (test code = 2.04 mg/dL 0.6-1.25 H 0298183092) TOTAL BILI (test code = 0.6 mg/dL 0.1-1.5 4153308078) CALCIUM (test code = 7.6 mg/dL 8.6-10.6 L 9277329394) T PROTEIN (test code = 7.3 g/dL 6.3-8.2 0081675774) ALBUMIN (test code = 3.2 g/dL 3.5-5 L 9672001696) ALK PHOS (test code = 146 U/L 34-122 H 1296700717) ALTv (test code = 13 U/L 5-50 1742-6) AST(SGOT) (test code = 17 U/L 13-40 3264115003) eGFR (test code = mL/min/1.73m2 1917087566) LU (test code = LU) Association of [...] tests). Lab Interpretation Abnormal (test code = 89733-6) [facility] Test Item Value Reference Range Interpretation Comments MAGNESIUM (test code = 4743995421) 2.3 mg/dL 1.7-2.4 Lab Interpretation (test code = Normal 49237-2) [facility] Test Item Value Reference Range Interpretation Comments MAGNESIUM (test code = 1351902524) 2.3 mg/dL 1.7-2.4 Lab Interpretation (test code = Normal 31693-7) [facility] Test Item Value Reference Range Interpretation Comments LIPASE (test code = 0048907767) 18 U/L 0-220 Lab Interpretation (test code = Normal 49925-8) [facility] 00:32:22 Test Item Value Reference Range Interpretation Comments LIPASE (test code = 3150792182) 18 U/L 0-220 Lab Interpretation (test code = Normal 29522-9) [facility] WITH [id number] 00:18:00 Test Item Value Reference Range Interpretation Comments WBC (test code = See_Comment H [Automated 1090-2) message] The system which generated this result [...] RDW-SD (test code = 47.0 fL 38.5-51.6 36126-6) RDW-CV (test code = 15.4 % 12.1-15.4 788-0) PLT (test code = See_Comment H [Automated 777-3) message] The system which generated this result transmit annette reference range : 150 - 328 10*3/ ?L. The reference range was not u sed to interpret th is result as normal/abnormal . MPV (test code = 10.7 fL 9.8-13 16143-7) NRBC/100 WBC (test See_Comment [Automat ed code = 4305674822) message] The system which generated this result transmit annette reference range : 0.0 - 10.0 /100 WBCs. The reference range was not used to interpret this result as normal/abnormal . NRBC x10^3 (test code See_Comment [Auto mated = 7211427955) message] The system which generated this result transmit annette reference range : 10*3/?L. The reference range was not used to interpret this result as normal/abnormal . GRAN MAT (NEUT) % 83.3 % (test code = 770-8) IMM GRAN % (test code 0.50 % = 8768108216) LYMPH % (test code = 10.1 % 736-9) MONO % (test code = 5.9 % 5905-5) EOS % (test code = 0.0 % 713-8) BASO % (test code = 0.2 % 706-2) GRAN MAT x10^3(ANC) 10.78 10*3/uL 1.99-6.95 H (test code = 6175810683) IMM GRAN x10^3 (test 0.06 10*3/uL 0-0.06 code = 5516092312) LYMPH x10^3 (test code 1.31 10*3/uL 1.09-3.23 = 731-0) MONO x10^3 (test code 0.76 10*3/uL 0.36-1.02 = 742-7) EOS x10^3 (test code = 0.06-0.53 L 711-2) BASO x10^3 (test code 0.01-0.09 = 704-7) Lab Interpretation Abnormal (test code = 30758-3) [facility] WITH [id number] 00:18:00 Test Item Value Reference Range Interpretation Comments WBC (test code = See_Comment H [Automated 6290-2) message] The system which generated this result transmit annette reference range : 4.20 - 10.70 10*3/?L. The reference range was not used to interpret this result as normal/abnormal . RBC (test code = See_Comment [Automated 559-8) message] The system which generated this result [...] RDW-SD (test code = 47.0 fL 38.5-51.6 13598-9) RDW-CV (test code = 15.4 % 12.1-15.4 788-0) PLT (test code = See_Comment H [Automated 777-3) message] The system which generated this result transmit annette reference range : 150 - 328 10*3/ ?L. The reference range was not u sed to interpret th is result as normal/abnormal . MPV (test code = 10.7 fL 9.8-13 52390-5) NRBC/100 WBC (test See_Comment [Automat ed code = 5636695073) message] The system which generated this result transmit annette reference range : 0.0 - 10.0 /100 WBCs. The reference range was not used to interpret this result as normal/abnormal . NRBC x10^3 (test code See_Comment [Auto mated = 1877773933) message] The system which generated this result transmit annette reference range : 10*3/?L. The reference range was not used to interpret this result as normal/abnormal . GRAN MAT (NEUT) % 83.3 % (test code = 770-8) IMM GRAN % (test code 0.50 % = 1181413753) LYMPH % (test code = 10.1 % 736-9) MONO % (test code = 5.9 % 5905-5) EOS % (test code = 0.0 % 713-8) BASO % (test code = 0.2 % 706-2) GRAN MAT x10^3(ANC) 10.78 10*3/uL 1.99-6.95 H (test code = 5027857985) IMM GRAN x10^3 (test 0.06 10*3/uL 0-0.06 code = 3020413586) LYMPH x10^3 (test code 1.31 10*3/uL 1.09-3.23 = 731-0) MONO x10^3 (test code 0.76 10*3/uL 0.36-1.02 = 742-7) EOS x10^3 (test code = 0.06-0.53 L 711-2) BASO x10^3 (test code 0.01-0.09 = 704-7) Lab Interpretation Abnormal (test code = 57227-1) [facility]. METABOLIC PANEL (44180)2022-05-27 01:04:32 Test Item Value Reference Range Interpretation Comments NA (test code = 135 mmol/L 135-145 6968138608) K (test code = 2.3 mmol/L 3.5-5 LL 9063198405) CL (test code = 102 mmol/L 98-108 6137731495) CO2 TOTAL (test code = 21 mmol/L 23-31 L 5285108876) AGAP (test code = 2-16 9822964999) BUN (test code = 5 mg/dL 7-23 L 1763884836) GLUCOSE (test code = 142 mg/dL 70-110 H 2581508307) CREATININE (test code = 0.68 mg/dL 0.6-1.25 5978855359) TOTAL BILI (test code = 0.6 mg/dL 0.1-1.8 8460161398) CALCIUM (test code = 7.9 mg/dL 8.6-10.6 L 1476331241) T PROTEIN (test code = 7.3 g/dL 6.3-8.2 7123091984) ALBUMIN (test code = 3.2 g/dL 3.5-5 L 1299586035) ALK PHOS (test code = 100 U/L 34-122 6627818366) ALTv (test code = 13 U/L 5-50 1742-6) AST(SGOT) (test code = 17 U/L 13-40 7192062163) eGFR (test code = mL/min/1.73m2 0968926968) LU (test code = LU) Association of [...] tests). Lab Interpretation Abnormal (test code = 44559-0) [facility] WITH [id number] 00:45:16 Test Item Value Reference Range Interpretation Comments WBC (test code = See_Comment [Automated 7990-2) message] The sy stem which generated this [...] RDW-SD (test code = 49.6 fL 38.5-51.6 24786-7) RDW-CV (test code = 15.1 % 12.1-15.4 788-0) PLT (test code = See_Comment [Automated 777-3) message] The sy stem which generated this result transmitted reference range : 150 - 328 10*3/ ?L. The reference r alisson was not used to interpret this result as normal/abnormal . MPV (test code = 11.2 fL 9.8-13 67115-5) NRBC/100 WBC (test See_Comment [Automat ed code = 0155939036) message] The system which generated this result transmitted reference range : 0.0 - 10.0 /100 WBCs. The refer ence range was not u sed to interpret th is result as normal/abnormal . NRBC x10^3 (test code See_Comment [Auto mated = 7389350731) message] The s ystem which generated this result transmitted reference range : 10*3/?L. The reference range was not used to interpret this result as normal/abnormal . GRAN MAT (NEUT) % 72.3 % (test code = 770-8) IMM GRAN % (test code 0.20 % = 0996763277) LYMPH % (test code = 19.9 % 736-9) MONO % (test code = 6.3 % 5905-5) EOS % (test code = 1.0 % 713-8) BASO % (test code = 0.3 % 706-2) GRAN MAT x10^3(ANC) 6.43 10*3/uL 1.99-6.95 (test code = 1111925878) IMM GRAN x10^3 (test 0-0.06 code = 2167530077) LYMPH x10^3 (test code 1.77 10*3/uL 1.09-3.23 = 731-0) MONO x10^3 (test code 0.56 10*3/uL 0.36-1.02 = 742-7) EOS x10^3 (test code = 0.09 10*3/uL 0.06-0.53 711-2) BASO x10^3 (test code 0.03 10*3/uL 0.01-0.09 = 704-7) Lab Interpretation Abnormal (test code = 28435-9) [facility] (NA, K, CL, CO2, GLUCOSE, BUN, CREATININE, CA)2022-04-29 10:41:04 Test Item Value Reference Range Interpretation Comments NA (test code = 141 mmol/L 135-145 9187257431) K (test code = 4.1 mmol/L 3.5-5 0833145280) CL (test code = 113 mmol/L 98-108 H 1715965729) CO2 TOTAL (test code = 26 mmol/L 23-31 2993233382) AGAP (test code = 2-16 8023677628) BUN (test code = 2 mg/dL 7-23 L 2444330539) GLUCOSE (test code = 77 mg/dL 70-110 8541163848) CREATININE (test code = 0.43 mg/dL 0.6-1.25 L 3833703989) CALCIUM (test code = 7.5 mg/dL 8.6-10.6 L 6870864414) eGFR (test code = mL/min/1.73m2 6108710824) LU (test code = LU) Association of [...] tests). Lab Interpretation Abnormal (test code = 29167-4) [facility] METABOLIC PANEL (NA, K, CL, CO2, GLUCOSE, BUN, CREATININE, CA)2022-04-29 10:41:04 Test Item Value Reference Range Interpretation Comments NA (test code = 141 mmol/L 135-145 0443577625) K (test code = 4.1 mmol/L 3.5-5.0 6516841134) CL (test code = 113 mmol/L 98-108 H 8659675788) CO2 TOTAL (test code = 26 mmol/L 23-31 6607428753) AGAP (test code = 2-16 0895560077) BUN (test code = 2 mg/dL 7-23 L 0916736189) GLUCOSE (test code = 77 mg/dL 70-110 9013300438) CREATININE (test code = 0.43 mg/dL 0.60-1.25 L 3250744984) CALCIUM (test code = 7.5 mg/dL 8.6-10.6 L 9660133456) eGFR (test code = mL/min/1.73m2 6343247991) LU (test code = LU) Association of [...] tests). Lab Interpretation Abnormal (test code = 99619-8) [facility] Test Item Value Reference Range Interpretation Comments MAGNESIUM (test code = 6520266066) 1.7 mg/dL 1.7-2.4 Lab Interpretation (test code = Normal 60689-3[facility] Test Item Value Reference Range Interpretation Comments MAGNESIUM (test code = 6711190641) 1.7 mg/dL 1.7-2.4 Lab Interpretation (test code = Normal 12376-0) [facility] METABOLIC PANEL (NA, K, CL, CO2, GLUCOSE, BUN, CREATININE, CA)2022-04-28 17:52:13 Test Item Value Reference Range Interpretation Comments NA (test code = 142 mmol/L 135-145 2041029401) K (test code = 2.6 mmol/L 3.5-5 LL 4580378825) CL (test code = 109 mmol/L 98-108 H 2819630087) CO2 TOTAL (test code = 26 mmol/L 23-31 0080708114) AGAP (test code = 2-16 1823597689) BUN (test code = 3 mg/dL 7-23 L 6721338782) GLUCOSE (test code = 95 mg/dL 70-110 9231606857) CREATININE (test code = 0.57 mg/dL 0.6-1.25 L 4841199242) CALCIUM (test code = 7.6 mg/dL 8.6-10.6 L 0084910491) eGFR (test code = mL/min/1.73m2 3430544555) LU (test code = LU) Association of [...] tests). Lab Interpretation Abnormal (test code = 90942-1) [facility] METABOLIC PANEL (NA, K, CL, CO2, GLUCOSE, BUN, CREATININE, CA)2022-04-28 17:52:13 Test Item Value Reference Range Interpretation Comments NA (test code = 142 mmol/L 135-145 3914952920) K (test code = 2.6 mmol/L 3.5-5.0 LL 6013066922) CL (test code = 109 mmol/L 98-108 H 5452434771) CO2 TOTAL (test code = 26 mmol/L 23-31 5975749202) AGAP (test code = 2-16 5036212029) BUN (test code = 3 mg/dL 7-23 L 9512454525) GLUCOSE (test code = 95 mg/dL 70-110 1934608130) CREATININE (test code = 0.57 mg/dL 0.60-1.25 L 0478578854) CALCIUM (test code = 7.6 mg/dL 8.6-10.6 L 7568759503) eGFR (test code = mL/min/1.73m2 1174238941) LU (test code = LU) Association of [...] tests). Lab Interpretation Abnormal (test code = 20024-0) [facility] METABOLIC PANEL (NA, K, CL, CO2, GLUCOSE, BUN, CREATININE, CA)2022-04-28 17:52:13 Test Item Value Reference Range Interpretation Comments NA (test code = 142 mmol/L 135-145 3707506876) K (test code = 2.6 mmol/L 3.5-5.0 LL 6346147946) CL (test code = 109 mmol/L 98-108 H 2691429545) CO2 TOTAL (test code = 26 mmol/L 23-31 7282024247) AGAP (test code = 2-16 3812384686) BUN (test code = 3 mg/dL 7-23 L 3904171157) GLUCOSE (test code = 95 mg/dL 70-110 0738355376) CREATININE (test code = 0.57 mg/dL 0.60-1.25 L 6861350713) CALCIUM (test code = 7.6 mg/dL 8.6-10.6 L 9336505010) eGFR (test code = mL/min/1.73m2 6464416740) LU (test code = LU) Association of [...] tests). Lab Interpretation Abnormal (test code = 84482-1) [facility] WITHOUT [id number] 17:16:02 Test Item Value Reference Range Interpretation Comments WBC (test code = 6690-2) See_Comment [A utomated message] The system [employer] generated this result transmit annette reference range : 4.20 - 10.70 10*3/?L. The reference range was not used to interpret this result as normal/abnormal . RBC (test code = 789-8) See_Comment L [Au tomated message] The system [employer] generated this result transmit annette reference range [...] 777-3) See_Comment [Au tomated message] The system [employer] generated this result transmit annette reference range : 150 - 328 10*3/?L. The reference range was not used to interpret this result as normal/abnormal . MPV (test code = 10.7 fL 9.8-13 55472-5) RDW-CV (test code = 14.9 % 12.1-15.4 788-0) RDW-SD (test code = 48.9 fL 38.5-51.6 79870-0) NRBC x10^3 (test code = See_Comment [Au tomated message] 7503968544) The system [employer] generated this result transmit annette reference range : 10*3/?L. The reference range was not used to interpret this result as normal/abnormal . NRBC/100 WBC (test code See_Comment [Au tomated message] = 0720040942) The system [facility] generated this result transmit annette reference range : 0.0 - 10.0 /100 WBC s. The reference r alisson was not used to interpret this result as normal/abnormal . IPF % (test code = 8522651662) Lab Interpretation (test Abnormal code = 82613-5) [facility] WITHOUT [id number] 17:16:02 Test Item Value Reference Range Interpretation Comments WBC (test code = 6690-2) See_Comment [A utomated message] The system [facility] generated this result transmit annette reference range : 4.20 - 10.70 10*3/?L. The reference range was not used to interpret this result as normal/abnormal . RBC (test code = 789-8) See_Comment L [Au tomated message] The system [employer] generated this result transmit annette reference range [...] 777-3) See_Comment [Au tomated message] The system [employer] generated this result transmit annette reference range : 150 - 328 10*3/?L. The reference range was not used to interpret this result as normal/abnormal . MPV (test code = 10.7 fL 9.8-13.0 50182-0) RDW-CV (test code = 14.9 % 12.1-15.4 788-0) RDW-SD (test code = 48.9 fL 38.5-51.6 35190-3) NRBC x10^3 (test code = <0.01 See_Comment [Au tomated message] 1492386130) The system [employer] generated this result transmit annette reference range : 10*3/?L. The reference range was not used to interpret this result as normal/abnormal . NRBC/100 WBC (test code See_Comment [Au tomated message] = 8914994213) The system [facility] generated this result transmit annette reference range : 0.0 - 10.0 /100 WBC s. The reference r alisson was not used to interpret this result as normal/abnormal . IPF % (test code = 7650153030) Lab Interpretation (test Abnormal code = 29650-0) [facility] WITHOUT [id number] 17:16:02 Test Item Value Reference Range Interpretation Comments WBC (test code = 6690-2) See_Comment [A utomated message] The system [employer] generated this result transmit annette reference range : 4.20 - 10.70 10*3/?L. The reference range was not used to interpret this result as normal/abnormal . RBC (test code = 789-8) See_Comment L [Au tomated message] The system [employer] generated this result transmit annette reference range [...] 777-3) See_Comment [Au tomated message] The system [employer] generated this result transmit annette reference range : 150 - 328 10*3/?L. The reference range was not used to interpret this result as normal/abnormal . MPV (test code = 10.7 fL 9.8-13.0 59546-4) RDW-CV (test code = 14.9 % 12.1-15.4 788-0) RDW-SD (test code = 48.9 fL 38.5-51.6 90439-1) NRBC x10^3 (test code = <0.01 See_Comment [Au tomated message] 2184564439) The system [employer] generated this result transmit annette reference range : 10*3/?L. The reference range was not used to interpret this result as normal/abnormal . NRBC/100 WBC (test code See_Comment [Au tomated message] = 2955350346) The system [facility] generated this result transmit annette reference range : 0.0 - 10.0 /100 WBC s. The reference r alisson was not used to interpret this result as normal/abnormal . IPF % (test code = 8087452725) Lab Interpretation (test Abnormal code = 40379-7) [facility] [id number] 22:31:26 Test Item Value Reference Range Interpretation Comments K (test code = 0357302501) 3.3 mmol/L 3.5-5 L Lab Interpretation (test code = Abnormal 17524-9) [facility] METABOLIC PANEL (NA, K, CL, CO2, GLUCOSE, BUN, CREATININE, CA)2022-04-27 22:31:26 Test Item Value Reference Range Interpretation Comments NA (test code = 144 mmol/L 135-145 8035581462) K (test code = 3.3 mmol/L 3.5-5 L 4288269744) CL (test code = 112 mmol/L 98-108 H 8285383482) CO2 TOTAL (test code = 27 mmol/L 23-31 6037212148) AGAP (test code = 2-16 4598843389) BUN (test code = 5 mg/dL 7-23 L 3053152049) GLUCOSE (test code = 118 mg/dL 70-110 H 1941460099) CREATININE (test code = 0.63 mg/dL 0.6-1.25 5728659470) CALCIUM (test code = 7.6 mg/dL 8.6-10.6 L 0176899965) eGFR (test code = mL/min/1.73m2 8005065845) LU (test code = LU) Association of [...] tests). Lab Interpretation Abnormal (test code = 04767-2) [facility] [id number] 22:31:26 Test Item Value Reference Range Interpretation Comments K (test code = 6384852913) 3.3 mmol/L 3.5-5.0 L Lab Interpretation (test code = Abnormal 95803-8) [facility] [id number] 22:31:26 Test Item Value Reference Range Interpretation Comments K (test code = 2349045600) 3.3 mmol/L 3.5-5.0 L Lab Interpretation (test code = Abnormal 07756-2) [facility] METABOLIC PANEL (NA, K, CL, CO2, GLUCOSE, BUN, CREATININE, CA)2022-04-27 22:31:26 Test Item Value Reference Range Interpretation Comments NA (test code = 144 mmol/L 135-145 1496513711) K (test code = 3.3 mmol/L 3.5-5.0 L 8733254567) CL (test code = 112 mmol/L 98-108 H 4288496113) CO2 TOTAL (test code = 27 mmol/L 23-31 5877713988) AGAP (test code = 2-16 1082917362) BUN (test code = 5 mg/dL 7-23 L 0031204769) GLUCOSE (test code = 118 mg/dL 70-110 H 9455527562) CREATININE (test code = 0.63 mg/dL 0.60-1.25 0422961733) CALCIUM (test code = 7.6 mg/dL 8.6-10.6 L 5876904294) eGFR (test code = mL/min/1.73m2 1256038147) LU (test code = LU) Association of [...] tests). Lab Interpretation Abnormal (test code = 37813-9) [facility]2022-07-05 21:22:49 Test Item Value Reference Range Interpretation Comments MAGNESIUM (test code = 9592377439) 2.1 mg/dL 1.7-2.4 Lab Interpretation (test code = Normal 09239-0) [facility]2022-07-05 21:22:49 Test Item Value Reference Range Interpretation Comments MAGNESIUM (test code = 7271046330) 2.1 mg/dL 1.7-2.4 Lab Interpretation (test code = Normal 97449-2) [facility]2022-07-05 21:22:49 Test Item Value Reference Range Interpretation Comments MAGNESIUM (test code = 9719004380) 2.1 mg/dL 1.7-2.4 Lab Interpretation (test code = Normal 12368-7) [facility] (NA, K, CL, CO2, GLUCOSE, BUN, CREATININE, CA)2022-04-27 15:50:29 Test Item Value Reference Range Interpretation Comments NA (test code = 143 mmol/L 135-145 5017056601) K (test code = 2.4 mmol/L 3.5-5 LL 5786453712) CL (test code = 110 mmol/L 98-108 H 3191361343) CO2 TOTAL (test code = 28 mmol/L 23-31 0237274418) AGAP (test code = 2-16 2920813310) BUN (test code = 4 mg/dL 7-23 L 5224672652) GLUCOSE (test code = 56 mg/dL 70-110 L 7861083341) CREATININE (test code = 0.65 mg/dL 0.6-1.25 5971702431) CALCIUM (test code = 7.7 mg/dL 8.6-10.6 L 7194477519) eGFR (test code = mL/min/1.73m2 7471049289) LU (test code = LU) Association of [...] tests). Lab Interpretation Abnormal (test code = 97756-2) [facility] METABOLIC PANEL (NA, K, CL, CO2, GLUCOSE, BUN, CREATININE, CA)2022-04-27 15:50:29 Test Item Value Reference Range Interpretation Comments NA (test code = 143 mmol/L 135-145 5536802266) K (test code = 2.4 mmol/L 3.5-5.0 LL 4807489466) CL (test code = 110 mmol/L 98-108 H 9997275215) CO2 TOTAL (test code = 28 mmol/L 23-31 6157368763) AGAP (test code = 2-16 1923155111) BUN (test code = 4 mg/dL 7-23 L 5206170092) GLUCOSE (test code = 56 mg/dL 70-110 L 0243862433) CREATININE (test code = 0.65 mg/dL 0.60-1.25 1359928450) CALCIUM (test code = 7.7 mg/dL 8.6-10.6 L 6481290366) eGFR (test code = mL/min/1.73m2 7322551241) LU (test code = LU) Association of [...] tests). Lab Interpretation Abnormal (test code = 44364-9) [facility] [id number] 23:23:37 Test Item Value Reference Interpretation Comments Range TROPONIN I (test 0.007 ng/mL See_Comment [Automated code = 0038815565) message] The system which generated this result [...] biotin. Lab Interpretation Normal (test code = 64853-8) [facility]OLIC PAN[facility] (34330)2022-04-26 23:23:37 Test Item Value Reference Range Interpretation Comments NA (test code = 143 mmol/L 135-145 1386018223) K (test code = 2.3 mmol/L 3.5-5 LL 1930232481) CL (test code = 107 mmol/L 98-108 4107387804) CO2 TOTAL (test code = 27 mmol/L 23-31 0170003581) AGAP (test code = 2-16 0416787194) BUN (test code = 4 mg/dL 7-23 L 3304317307) GLUCOSE (test code = 86 mg/dL 70-110 4005586959) CREATININE (test code = 0.73 mg/dL 0.6-1.25 8855127409) TOTAL BILI (test code = 0.7 mg/dL 0.1-1.0 4823433728) CALCIUM (test code = 7.6 mg/dL 8.6-10.6 L 2863201815) T PROTEIN (test code = 6.5 g/dL 6.3-8.2 6707042286) ALBUMIN (test code = 2.7 g/dL 3.5-5 L 6020308860) ALK PHOS (test code = 96 U/L 34-122 6460650986) ALTv (test code = 13 U/L 5-50 1742-6) AST(SGOT) (test code = 22 U/L 13-40 6083685106) eGFR (test code = mL/min/1.73m2 8769418363) LU (test code = LU) Association of [...] tests). Lab Interpretation Abnormal (test code = 41484-2) [id number] 23:23:37 Test Item Value Reference Interpretation Comments Range TROPONIN I (test 0.007 ng/mL See_Comment [Automated code = [id number]) message] The system which generated this result [...] biotin. Lab Interpretation Normal (test code = 70668-2) [facility]. METABOLIC PANEL (61436)2022-04-26 23:23:37 Test Item Value Reference Range Interpretation Comments NA (test code = 143 mmol/L 135-145 1025648370) K (test code = 2.3 mmol/L 3.5-5.0 LL 8274432650) CL (test code = 107 mmol/L 98-108 5451113234) CO2 TOTAL (test code = 27 mmol/L 23-31 1133102987) AGAP (test code = 2-16 2331924500) BUN (test code = 4 mg/dL 7-23 L 2159047171) GLUCOSE (test code = 86 mg/dL 70-110 0121385282) CREATININE (test code = 0.73 mg/dL 0.60-1.25 6944344725) TOTAL BILI (test code = 0.7 mg/dL 0.1-1.2 6364622539) CALCIUM (test code = 7.6 mg/dL 8.6-10.6 L 2902529194) T PROTEIN (test code = 6.5 g/dL 6.3-8.2 9179277032) ALBUMIN (test code = 2.7 g/dL 3.5-5.0 L 6115326079) ALK PHOS (test code = 96 U/L 34-122 7488012048) ALTv (test code = 13 U/L 5-50 1742-6) AST(SGOT) (test code = 22 U/L 13-40 8980062080) eGFR (test code = mL/min/1.73m2 1867656057) LU (test code = LU) Association of [...] tests). Lab Interpretation Abnormal (test code = 54075-7) [facility] [id number] 23:23:37 Test Item Value Reference Interpretation Comments Range TROPONIN I (test 0.007 ng/mL See_Comment [Automated code = 3758204363) message] The system which generated this result [...] biotin. Lab Interpretation Normal (test code = 65078-4) [facility]. METABOLIC PANEL (66506)2022-04-26 23:23:37 Test Item Value Reference Range Interpretation Comments NA (test code = 143 mmol/L 135-145 5690071818) K (test code = 2.3 mmol/L 3.5-5.0 LL 4047049737) CL (test code = 107 mmol/L 98-108 5802398604) CO2 TOTAL (test code = 27 mmol/L 23-31 0851588281) AGAP (test code = 2-16 7552041977) BUN (test code = 4 mg/dL 7-23 L 9589354514) GLUCOSE (test code = 86 mg/dL 70-110 0315180390) CREATININE (test code = 0.73 mg/dL 0.60-1.25 0947160135) TOTAL BILI (test code = 0.7 mg/dL 0.1-1.0 4361756430) CALCIUM (test code = 7.6 mg/dL 8.6-10.6 L 6240757339) T PROTEIN (test code = 6.5 g/dL 6.3-8.2 2333824702) ALBUMIN (test code = 2.7 g/dL 3.5-5.0 L 9300589921) ALK PHOS (test code = 96 U/L 34-122 8319579679) ALTv (test code = 13 U/L 5-50 1742-6) AST(SGOT) (test code = 22 U/L 13-40 4759530512) eGFR (test code = mL/min/1.73m2 7729828722) LU (test code = LU) Association of [...] tests). Lab Interpretation Abnormal (test code = 70609-6) [facility] [id number] 23:20:37 Test Item Value Reference Range Interpretation Comments NT-proBNP (test code 393 pg/mL See_Comment H [Autom ated = 8353951529) message] The system which generated this result transmitted reference range : <=125. The reference range was not used to interpret this result as normal/abnormal . LU (test code = LU) Biotin has been reported to cause a negative bias, interpret results relative to patient's use of biotin. Lab Interpretation Abnormal (test code = 84055-8) [facility] [id number] 23:20:37 Test Item Value Reference Range Interpretation Comments NT-proBNP (test code 393 pg/mL See_Comment H [Autom ated = 6860437430) message] The system which generated this result transmitted reference range : <=125. The reference range was not used to interpret this result as normal/abnormal . LU (test code = LU) Biotin has been reported to cause a negative bias, interpret results relative to patient's use of biotin. Lab Interpretation Abnormal (test code = 08158-5) [facility] [id number] 23:20:37 Test Item Value Reference Range Interpretation Comments NT-proBNP (test code 393 pg/mL See_Comment H [Autom ated = 6157804146) message] The system which generated this result transmitted reference range : <=125. The reference range was not used to interpret this result as normal/abnormal . LU (test code = LU) Biotin has been reported to cause a negative bias, interpret results relative to patient's use of biotin. Lab Interpretation Abnormal (test code = 73127-7) [facility] 23:11:39 Test Item Value Reference Range Interpretation Comments LIPASE (test code = 6476189312) 78 U/L 0-220 Lab Interpretation (test code = Normal 64068-5) [facility] 23:11:39 Test Item Value Reference Range Interpretation Comments LIPASE (test code = 9365605073) 78 U/L 0-220 Lab Interpretation (test code = Normal 16119-3) [facility] 23:11:39 Test Item Value Reference Range Interpretation Comments LIPASE (test code = 7607592855) 78 U/L 0-220 Lab Interpretation (test code = Normal 39760-3) [facility] WITH [id number] 22:55:18 Test Item Value Reference Range Interpretation [...] RDW-SD (test code = 45.2 fL 38.5-51.6 77392-8) RDW-CV (test code = 14.3 % 12.1-15.4 788-0) PLT (test code = See_Comment [Automated 777-3) message] The sy stem which generated this result transmitted reference range : 150 - 328 10*3/ ?L. The reference r alisson was not used to interpret this result as normal/abnormal . MPV (test code = 10.5 fL 9.8-13 10154-5) NRBC/100 WBC (test See_Comment [Automat ed code = 4671173927) message] The system which generated this result transmitted reference range : 0.0 - 10.0 /100 WBCs. The refer ence range was not u sed to interpret th is result as normal/abnormal . NRBC x10^3 (test code See_Comment [Auto mated = 2680929543) message] The s ystem which generated this result transmitted reference range : 10*3/?L. The reference range was not used to interpret this result as normal/abnormal . GRAN MAT (NEUT) % 73.6 % (test code = 770-8) IMM GRAN % (test code 0.30 % = 8385124440) LYMPH % (test code = 20.6 % 736-9) MONO % (test code = 4.9 % 5905-5) EOS % (test code = 0.3 % 713-8) BASO % (test code = 0.3 % 706-2) GRAN MAT x10^3(ANC) 6.49 10*3/uL 1.99-6.95 (test code = 6438808469) IMM GRAN x10^3 (test 0.03 10*3/uL 0-0.06 code = 8978699285) LYMPH x10^3 (test code 1.82 10*3/uL 1.09-3.23 = 731-0) MONO x10^3 (test code 0.43 10*3/uL 0.36-1.02 = 742-7) EOS x10^3 (test code = 0.03 10*3/uL 0.06-0.53 L 711-2) BASO x10^3 (test code 0.03 10*3/uL 0.01-0.09 = 704-7) Lab Interpretation Abnormal (test code = 22159-6) [facility] WITH [id number] 22:55:18 Test Item Value Reference Range Interpretation [...] RDW-SD (test code = 45.2 fL 38.5-51.6 66676-4) RDW-CV (test code = 14.3 % 12.1-15.4 788-0) PLT (test code = See_Comment [Automated 777-3) message] The sy stem which generated this result transmitted reference range : 150 - 328 10*3/ ?L. The reference r alisson was not used to interpret this result as normal/abnormal . MPV (test code = 10.5 fL 9.8-13.0 63943-1) NRBC/100 WBC (test See_Comment [Automat ed code = 6733781985) message] The system which generated this result transmitted reference range : 0.0 - 10.0 /100 WBCs. The refer ence range was not u sed to interpret th is result as normal/abnormal . NRBC x10^3 (test code <0.01 See_Comment [Auto mated = 7431264123) message] The s ystem which generated this result transmitted reference range : 10*3/?L. The reference range was not used to interpret this result as normal/abnormal . GRAN MAT (NEUT) % 73.6 % (test code = 770-8) IMM GRAN % (test code 0.30 % = 7548591698) LYMPH % (test code = 20.6 % 736-9) MONO % (test code = 4.9 % 5905-5) EOS % (test code = 0.3 % 713-8) BASO % (test code = 0.3 % 706-2) GRAN MAT x10^3(ANC) 6.49 10*3/uL 1.99-6.95 (test code = 1477411309) IMM GRAN x10^3 (test 0.03 10*3/uL 0.00-0.06 code = 6216116387) LYMPH x10^3 (test code 1.82 10*3/uL 1.09-3.23 = 731-0) MONO x10^3 (test code 0.43 10*3/uL 0.36-1.02 = 742-7) EOS x10^3 (test code = 0.03 10*3/uL 0.06-0.53 L 711-2) BASO x10^3 (test code 0.03 10*3/uL 0.01-0.09 = 704-7) Lab Interpretation Abnormal (test code = 01549-1) [facility] WITH [id number] 22:55:18 Test Item Value Reference Range Interpretation Comments WBC (test code = See_Comment [Automated 0390-2) message] The sy stem which generated this result transmitted reference range : 4.20 - 10.70 10*3/?L. The reference range was not used to interpret this result as normal/abnormal . RBC (test code = See_Comment L [Automated 569-8) message] The sy stem which generated this [...] RDW-SD (test code = 45.2 fL 38.5-51.6 03500-5) RDW-CV (test code = 14.3 % 12.1-15.4 788-0) PLT (test code = See_Comment [Automated 777-3) message] The sy stem which generated this result transmitted reference range : 150 - 328 10*3/ ?L. The reference r alisson was not used to interpret this result as normal/abnormal . MPV (test code = 10.5 fL 9.8-13.0 53979-5) NRBC/100 WBC (test See_Comment [Automat ed code = 8546518951) message] The system which generated this result transmitted reference range : 0.0 - 10.0 /100 WBCs. The refer ence range was not u sed to interpret th is result as normal/abnormal . NRBC x10^3 (test code <0.01 See_Comment [Auto mated = 9835821846) message] The s ystem which generated this result transmitted reference range : 10*3/?L. The reference range was not used to interpret this result as normal/abnormal . GRAN MAT (NEUT) % 73.6 % (test code = 770-8) IMM GRAN % (test code 0.30 % = 3283259495) LYMPH % (test code = 20.6 % 736-9) MONO % (test code = 4.9 % 5905-5) EOS % (test code = 0.3 % 713-8) BASO % (test code = 0.3 % 706-2) GRAN MAT x10^3(ANC) 6.49 10*3/uL 1.99-6.95 (test code = 0387602619) IMM GRAN x10^3 (test 0.03 10*3/uL 0.00-0.06 code = 0136616870) LYMPH x10^3 (test code 1.82 10*3/uL 1.09-3.23 = 731-0) MONO x10^3 (test code 0.43 10*3/uL 0.36-1.02 = 742-7) EOS x10^3 (test code = 0.03 10*3/uL 0.06-0.53 L 711-2) BASO x10^3 (test code 0.03 10*3/uL 0.01-0.09 = 704-7) Lab Interpretation Abnormal (test code = 43358-9) [facility] [id number] 16:42:42 Test Item Value Reference Range Interpretation Comments Case Report (test code Surgical Pathology ? ? = [id number]) ?Case: [id number] ? Authorizing Provider: ?Negrito Shaver MD ? Collected: ? 03/12/2022 1050 ?Ordering Location: ? ? [facility] ? ? ?Received: ?03/12/2022 1656 ? [facility] ?Pathologist: ? Carolin Ruiz MD ? Specimens: ? A) - APPENDIX ? B) - HERNIA SAC, RIGHT INGUINAL, RIGHT INGUINAL HERNIA SAC ? Final Diagnosis (test q4uliGYlZUDlm4qiFCFzkV code = 6502644853) FuZzEwMzNcZnRuYmpcdWMx IHtccnRmMVxhbnNpXGRlZm kuepziXNAwMBQ7vpExCTLr OTN6MOF4UpKkFTFoIrt5PN MnOF3usZymiVv9kOmbFMNm qeK8jUTtDYzdo2xuGKS0r5 tapobdJNJkFMipEw8adCHl oNpeZgWmDCIoTMz6rQ74XF SgbA6leUUqPBwjxpKfMoM4 ZVtuUVTnLhH2OHTjrAOiFZ Z5dDxcXEKzbncoZjM5QOwp IBOfydgfEFs9YPqrNLYsrS R5ZKLufXSsD8AqIIRxUN7b azu4TSM8KBatZKDgDjT9CQ ZabRVtLLCemQdeNZbpa641 MNT8RaIiLDYvcvOphAfgbJ 6rOqNrBDzfWBOuFF6xMNOY ON6YPZtqNABLQEEADMLLEV 9NWTpccGFyICAgICAtIEJF TklHTiBBUFBFTkRJWCBUSV CERFOgO2mWQDCBNJPBMCcj J13DT0RZZIyLBrFVOoVYPA BSTGTOPK5KTYGXRYgdIHPT SG5HVASBCLIAGDVabTSzAN KvmkUYUjOwN7yyMvRgkDIz SEVSTklBIFNBQywgRVhDSV RNL153CUBpukc+QM9yusr+ KE0kGUISGavEPrEZYSZFES pWPZyJTHFCFD4WLSKASZAM A0TAZDVVA6ZnCIcCM0SYGI mULQkwKfGZJ0EELSHnZ08V M4QZAWuHMaobEQRpesZtPJ OtBEQwP43YX0kIDOUBYLRB AWHLHYyPUn0XIZBLJLAwyL AmELXkP4JzWONzUPCytmzo czIyIExpbmRzYXkgQmlnaG UcGQYXObJaPZ3hOQ6pPFNh ZHC3ZoKrTSDPFYUajozwbl QhCDMsfc26XIV8QeBst2U1 QVLmJuHeYZOiOU7izSysNY IpMA7uMXNaQ7yyqS9ogxf8 AbVxAJXrLkO9FEKishP5Hp e5THUcIOref4oal6UeB2Ho jBJvfHp6d5dvJXNhZpB4hO TgHEliB1hovjYnlAJyLJNg JZj6bZjaWzBvWKDjb1weuh BcZmNoYXJzZXQwIENhbGli qsk9zB77HFKbuX4duRLwOH kbkbFgVxU3QGgmLDGrQqG6 ZVSynTUjFQPbB4nuWIIeJG rpUNVxPZfheMExHCF1aEsz t5H4uLVdmGKesIcySgCkEi HnSLOHo5BpBHz6nZpdS7Gg FEZoFeR2yBKqKLIsSFabWB HpAARrsyB9wR25NOzfmmY1 dGGex5Eno86mk969lU4byB MrCMX6RZNeZWYrzMDiFGOa JME0TYPvmARrH2scUNZkZY 5jzirpTSquNHohGCDjcEH7 EFBupJCqN4XzYVGsESxkFI Ppynj8PkToLd5dfDQggIss WFsxq5aeq3kmeZUgPpl8RC UjAeQrAngmPKnbi7Our4bj IXHllw3gBBB9fQBifBiwv6 U1aFLdPFAbeAZtpbEdQRUq LoO3RVruUQ7apn40IDXxLV W2wq3zxCGraBnxwaUbyPPz FAzzU8YeIXKfe485VQJsY0 GqXSBgc3S6flNlAeClLRGp cRX4ruO6EPHbNUr1uIGtdu H8vxSssOYxL0ipvA4pURXc VQ4dpvszg1boXDriGFmoAO PuzZZ5qtZ2JAAueJYuY0Pc kC4gABTaCCulVXIuwzo3Pc JmJv5ceIUtpPipZEsgJjhd YWdlXHBnbmNvbnRccGduZG VjXHBsYWluXHBsYWluXGYw RZOcTbDldMvbbMehoU8eMs IaQfQcYRbuIP1qMDDeO2sr yOHxCNXxCQVvZ7xrHkJlfF 9jaFxmMVxjZjJcZnMyMFxw YXIgSSBoYXZlIHBlcnNvbm RinAxzvwG8tBO2GOZhLSoe DJDdSSNqpLEjnb0obAuzYL KxLE9mGOOqutImCDotiNjt ADicYDA6RORyyITmzDTnrB FkZSBieSByZXNpZGVudHMs DBYdbLhch0Gwu5RzxPU3yS 7rn7pee8MoGSEjpPG7GX90 urE3gL5hFKLyNZ4tNYNvOK 7nhBTvfXJeUBSbz90fyFhs cyByZXBvcnQuXHBsYWluXG YyXGZzMjhcbGFuZzEwMzNc aGljaFxmMlxkYmNoXGYyXG qoP3psPsQdXmZwWPykJVW0 gHkkmzToPDnrh4WyK6FsQc AwMFxhbnNpXGRlZmxhbmcx OGDsHKJ5ymFgWUKfBNqiYC EuKFavQt8xsIXkzQhgGhQs YCXvc3rcsqQZLLqpTeTdO1 86ZHLeOFwmd7mpm0RtVROd yIJvx9U8JSBZhfbgiVj2zS hhM75le4Y9QulzH0dpVVTs GAHsS8MvCF4hBKXxCyr4JC M1DKG0FXQrRAJmK0SbGH7q RJYnyWFiNSg4v4jugPvpIA NaWFY6y2arWVufswY0FL8r cr1rcWc6p3fmfwSzMDAeQP XldZIRSQCyY1QynVdoCg6i cXd5lTgmPczsRKY4Cbn5NL 3aln84yrx5fUacMRAyszdi JqL7IZacDBPnthvdCGi9JU mfJBOvmBZ4WCUpvRKoK6Bn OLDgYN2bdlb3SOD9DXsdKG HfHtD1HOWxjKQnMCAuoPau TZpnm434NJD4RfNlIJ2gA1 Fne8F7tR8dtOFsVIHlaGCz AfKaEVEaex4tbUCzULlio7 AgB32iuEX2IKwjb1lkMF2p FzI2xiNiMPwfl3lzrO0jVy V2MAcyEA4ply90JRHkKFH0 zf8mfHNpgRbwpxGpfIUlQS azH8YyBVXlg686UYKbU8Lv FWKms9E1wkUvPsIaLOUjhC V0seG5DPFtLVc4uLPvtoN4 lbKyrGPwS2okpB3fWLDzDT 7iarwox6iaLIfpFCtqDHZc cLZ4uqH0LCQcsSWeD7PlaN 9jZDZaHGrnARRomjz3KdSn Ul4xhSAroVlmZKlmKslyBK dlXHBnbmNvbnRccGduZGVj XHBsYWluXHBsYWluXGYwXG FeYzUpnKEcFQlcq0MsmfSz pSkdQTUcDCz3kuSrueurhQ f0fTQmfJvqAXOylGdjaX8r FmFfEuLnGZyyJS8jIDSdJ7 hjcZKlTRDcJZRvD3wyLqKq nP8flUckFRsvWyYxHtQmKN xsdHJjaFxwYXIgSSBoYXZl ZWNbhfKrjrOujTotqkH3rO V4GIXhHMqwAMIxMCXbbFEl me4xqWgrKHZgLQ0jVEXtol BiAUrxnHozDQxwHXR9ITKl bWVudHMgbWFkZSBieSByZX LjSXYywKMbYHFhlTwpc0Os j4OjtTD1wY2vf6nhu5SvZS WqiLY7OG83ajK7zO6cDXGg SB8nBXDnVE5qxYUrySJoDA Gby37jqTijzbHfUQIepyMy XHBsYWluXGYxXGZzMjBcbG FuZzEwMzNcaGljaFxmMVxk XoMfJLZrJAxkS6jzPeDaK8 YyXGZzMjBccGFyXHBhclxw HXPfd0DeQpSvc3kuDKoud3 alfQk3MZkydETjfeccCQag ulU0IJEaFIynWCIoNFQlFJ RcbGFuZzEwMzNcaGljaFxm BGcpOiFwGLLoHUqxG0uyGt ZmD7OoXMVnUENfdWWdZ4bw JTJ1aX0pi3qhy8NejFXfRq Tky9pumkAnSYMzyROaxlBl cOBvYEOnn4BaDVFgOMSlOY ZMWu7NYIJlaLPiI2d2qLFP FQ8yxWEmLRDcAMNuY8OuLt XYydZoe4O7VWEspRMiLGZL IVPbrIXvL4j6jPshYKqcQw u5SqAsoVfbyY1rSoJdNjYr MVluIS3uWQRnB6maoPMdYT VsNIPtT9ojDvIohA6egOps MVxjZjJcZnMyMFxsdHJjaF jqHPJ6eE== Clinical Information RIGHT INGUINAL HERNIA (test code = 2132914018) Gross Description (test n3isbJClGBLqqTUALXSnA6 code = 6174207772) sddaDaSEZixYWiQ3Ornhbt SRudDN0nAC6kiXcteNOtzO HlLB7XIWTnRuLlMKPpzQXy wzGjXxHrHCWsiBCdlXH0CP HnIZ9gurlqPLpvDKhcFZMj soL3SZLvhGRjI0FsXOTkXY 2fifprPQG2EQxyxO4ylwMY TukaFp4bxLPndMjuIfZwZc NoYXJzZXQwXGZuaWwgQXJp GCa7kP5KKotpGNW4JILVUj uwIHJcGS9Kz2qqULKvmCMt FOO1PWhchHDoTUReECArFW d2XYCzQSlppQSiES7kzXka BozetMdzq8VkkVWnOJneET JkMXTtPVfbGSLcTX6BHnNx FKY8RVauJVlbYPa4IXd0KI 9WUyAiICAxODgyOTUyMSIg BOm6QMxxGL7DNDJ1QqY3VR O8YpsbDINiReroEBw1NAKf XFxmIEFyaWFsIFxcZnMgMT MyRKlfqUWiCQ8vmEdyjITa blxmczIwIFNQRUNJTUVOIE WpeULxTP2XDBItXVskJVLq lHXTZUD1JI0dRSNIUyemiZ LzRHNmqWxlXOfdrN0fUP9Z DAi7mqBcCWPvDiOxI9WgE4 zrLA3sJRXrvtOjVYXrlECg QBNyxvXai7LbOHkgvbJzRZ JlbGVkIHdpdGggdGhlIHBh sQetauMavlCjVT6tWREMMD NciJ0zBEYvRqPqxCToTHs7 UwveYK2sFQMtmeIur6EcLZ 9mIGFuIGludGFjdCwgdmVy xBhtv0OoOTSwlBZjNRw1ZY m9VfSnR32fhO1quBPfJ3Eu CXaqVU25QCTnYLTglMIewe IzzWSzDRAiubluw9v7yTGn nQPoM0pcVJAvLNBaTYTbCC 4kgOesQB7qOHQoS0W5fIJf nSnjVELsMPXtX7Gis32awR CjX2cxOnFDlYZsw5Bmo5Ei UUfwPYYeid5ntL3sOIIqCU LapzRgt00pyoAhgMs5IAMd k993zUB2tJNwIGMntgrch6 IiHKX6OUNgMNzsXdYPvVDt b3TiS0zwAO5owLQiy6SjbQ DzbQhcp2WdjXdgbyYuUTYi HCAmpvWicLV7PN9waIteie JivIPgr0CdKmGmCWHkUG3k XEBmjDVmYN5lkfEdW5vuMo Phcq5vUUJdtbNvxL13VYMg NSBjbSBpbiBkaWFtZXRlci T6cNI3EDRjnaTaoF8jVYJx K23xxF08btAvqH13rgWld5 Utc62rnXE3BS5xWuYjz57a CqLgCBczdSI0MKHnXNkxWO 9mILUidxMpfsA5yW9yqhOy fhNgD7Nmp2IpeOLoSOOibT ftfXWeAkGJQKL6uE3gbnS8 byBpbmNsdWRlIHRoZSBlbi BqHIFkJUObf9OhmTgzfdAm AGErkP2yJAuiq1LoHRFxpS UpLCByZXByZXNlbnRhdGl2 RDDfpr6rrr5oNAT8qE3bCT AtvpZoErefTJI0IKRxpOee NIPoSEXgsCTduBY8KYEcjH 6nNNRxSQdwoNrpqJ7cMACi X78hc2DNq5TpBVQcSXlie6 xqoYxvx0HlfSOwNOqwLLYa yIKsMQfclQ5rYwGgf3qdxZ y7KYwhfpD9FDVulb5PSisa IskelOvcs9NneBQuHKmrSA JkMIFxMUagVPWwAL4XFxOf QGD1IWeoHHbpUCz9JUo1YK 3NOjEvHFQyCXtaDCs0OJHa KLk2BTaoXH9BYTQ3GyA5UK X8JMQtTAWnMjkbYNx3YFUu XFxmIEFyaWFsIFxcZnMgMT EeBQamwFHgFY1xhEraloLo IFNQRUNJTUVOIEJccGFyIA 3CAQOyVPojDPMckJUCUNI7 JN8nWRJLTwqwaNUhHYToiR xhBAnzwQ6fCB2PQSo1vbQc ZOBnMdQxU4XwP5ipAN2rMg BpcyByZWNlaXZlZCBpbiBm z3GuVTszyyCoLTBfpTUeMS dpdGggdGhlIHBhdGllbnQn rkBcCO9oBBAXNKZjpN5aCV RhCfXwjCbfnSNqutc7xL0j vYAcBQAxrAMbs4MpXmgxAM 2oCSEsadNhb8GnZZ0qYQTw cEEiSIWqztvcl0UpR8BfWH Ebr91fmEX1fHYcfNBbDcBy O29xcbRbMNFqCES4MBEoLG W1COMfUbDtpUnur4oxC7id dATuo3CrvXMtnTtai3PbjF lvbmVkIHRvIHJldmVhbCB0 RT7wuLnjznTuXO7gxnMje8 JrWCM6iMBgqORbLZVxum8i BHSewWPvp0MjaZJ8gJKyDA NbH1Mpd92fSICzPPYbpXQe iPP7RBIngU7nQuClHZSmie KKBpgcOGCdMJgPSCE0DYZg amVzdGthLCBQQSAoQVNDUC kNClxwbGFpblxlcGljTmVz kZTwYmAvtVcjgH41WVNjwZ GlZHT7ZA6jUBDavgjrLRJk SSIcZSE4GMhhrE63oXMuEJ LyCSJcvAPfsS2VMVFiBER6 YIahsC93nPKfVW4FFNFfTR F3QQIfqMXaFDM7XP2yfJ4F fQ== Disclaimer (test code = n6ykzVNhHKBpe8mxYFUmkH [id number]) FuZzEwMzNcZnRuYmpcdWMx SCllqvMxKIrtt6ZtI2YuOu AwMFxhbnNpXGRlZmxhbmcx IJBmNTE4fpJvISZlORnsNM UfIJbvMh2deWIcnEbdXtDm EJVir6tldiAJCGryJfPeC4 17OCJqATjlr1mqy1SjEFLs yBUfr6O9MVNZlazmgUr0dW dgS28ot7E6FvwbF1lnLTLa NNMnG9UxTQ2cWRVuLhr5VH P2CFG8VGVhXZRoT2SlAG6c TCQfvXNyMOq9j7pdkTckVP WpCBC0y9zySUgqvfLsGX5l zs0fyHz1v5farlPbTROgCB HcsPAFMCGhP9AvvAemGg0e gFf6hQipMbvzPOZ7Mka2ZE 1aiy36njl3jBqsBPKolthj CqP5EHhbPYWwsmvdPHs8OD hwTMXqjCG8GMZmvAPkX3Xe JVVvNA5zrik8ERH8TBemNE OyVrT5FDTvlSLdOJVuvFwz KOtrw653WPC0NkFyQU3vO9 Lha3J1sA1riBMwIQFdsYRq NsJeULUisg7ntJBlNIlzp9 ZyNFF4fnR4fANhfBZlKQAi IN17Sjnfd4BbHjguz9PpV3 4gaXS1DKort4spHV5aOxJ5 xwRkIRotz1okaC3aOhT5HW ggLV3tRH6lCNAwwF1zifpb XHBnYnJkcmhlYWRccGdicm ZeQh4imNbwFLL0KTzgY4oc kE7kVmU6IUffZ7ojuR1zEQ v1LFpteFT4JOSvnC9jVJ2t oqdtu2yoFSwcOXleWEDvmf O0xwT5HWCkoXYiZ5TawO6v LTIpDO3nafxbr1bhMIP2AF gsYMVvKUZ2ZhZhQVXci0Zr xwd9UwSfv4EvaRHePDgxB4 5na887UXAqhuLdI7muxCUd uexzxLCujvqsWAumcjZ2JB YbxfBnv2XgDVEsMLZ2ZIsn SGqdkZQbUHIfjGbrb0tdY5 RscGFyXHBsYWluXGYxXGZz MjBcbGFuZzEwMzNcaGljaF yfQHesEnFfEZQvFPicP5rn UpWjW7KnAWFbBgIriORjL6 ggVGhpcyByZXBvcnQgbWF5 WCrtT4c6MHQyteFmkVp9uf XcLaNlCNBuMNZ0VQjveXVk UDHcu1AkrqaauEBgUi4zvB JdUZByfI3jROTxLALbGSos TH8hqAd6YHJXpNMvuQWvBn PHBNCiMO26vwNqHLZVlppf e7U7JBcqOIKxg9OeqOVrQ6 dge0LfPXXfo68dXM6uk1G7 w9keDIV7YK2ar1YoAXFvrC TtgNNtFVXeu8Vdizavo6Ea QSErmeViq0XwILUaayCbdI LpXOMyjsZkre2hgeYxUZUm GMEtL3WzhjrkvLgydkWyCK Yrqy4oijOoXXL2IQRXZGEz YUCxq5MhsU2yrXINIGH5nR Xqrb4yvhCKbTOxNVNjhn17 IVJgRC8yW6tbZMHzDDYrfz YwuMKpn1RcWAXipRV5oMYk SS1YJnXBj56bAWJsAAQYpg XeERJveMbiuCZ3hpV1cT5p IChGREEpLlx+IFRoZSBGRE JnEE4rsjDty7BejiBlfUgy NDJnkVFul1OgkIYev1UonC vdq1EnuHLkvNYdPC1eVIOu clxwYXIgVVRNQiBMYWJvcm U0i2PoGZTbLIKbLQO7iLrl fth1CKMyoW8aELAwO6uzew nfWGaiGDDlq1FodM8cuVHD bQJwi1SycEYueAWHvWEdNA 5nlrOlFQeNYMpGGMM0upEj UKLor9WiNLxpE6wsA00acP cdaTc0bOK9HST4cN3oOfi+ IFxwYXJccGFyIEFwcHJvcH QmILVfqIzskuDyB1ZpybTi oF8nvLRadjTqWS8wPP0jM8 H3gMJoXGHzadVpw6klPOgb dmUgYmVlbiByZXZpZXdlZC Sfh6LtGMsfYYM2KSpujuFv bmNsdWRpbmcgSCZFLCBTcG AzvKVfILP6QOwmfkHnanUj YJ8bxU2wkIjjqP3vgYDfaL H8yyiyZSAfRNPjlRvrFQHc OS3mjKCsUXGztxVEfLzhhZ GllO8gV7FaXHDkJCUoii4l EBGjzD9cKVjwe5MzroqrQH YeHCNfMMTmzpZjdi9yGUIt pXBPGU7LKJznkONyu9Hcxp BtT0wSELM1OXJoEmEnCrhh EUIffASqcNPyMVFfsy16AC FaaC2mxJcyGFHsmO8taT3g wJbliY5oKyVxHdVjSXdvPC 6xWDZzU1imlOYcUBYmFTSn T8ncBxByuI7cvMaiNHopHl OwCcZfOVcbQYI2fQ== Embedded Images (test code = 3080171631) [facility] This is a pre-surgical type and screen. ONCE [id number] 17:52:02 Test Item Value Reference Range Interpretation Comments ABO & RH (test AB POSITIVE Performed at [facility] code = 20) [facility] Blood [facility] [address] [facility] [address]Pyqx Free: [phone] A No. [id number] IAT (test code = Negative Performed a t [facility] 1185) [facility] Blood [facility] [address]Tbhb Free: [phone] A No. [id number] [facility]2022-04-14 23:13:17 Test Item Value Reference Range Interpretation Comments PALB (test code = 77513-3) 20.2 mg/dL 18.0-45.0 Lab Interpretation (test code = Normal 72999-4) [facility] Irving[facility]AT[facility] FUN[facility] PAN[facility] (61011) (ALB,T.PRO,BILI T,BU/BC,ALT,AST,ALK PHOS)2022-02-04 23:05:58 Test Item Value Reference Range Interpretation Comments TOTAL BILI (test code = 2854105036) 0.4 mg/dL 0.1-1.1 BILI UNCON (test code = 2496607643) 0.2 mg/dL 0.1-1.1 BILI CONJ (test code = 2529554825) 0.0 mg/dL 0.0-0.3 T PROTEIN (test code = 2725164839) 7.7 g/dL 6.3-8.2 ALBUMIN (test code = 6791130315) 3.4 g/dL 3.5-5.0 L ALK PHOS (test code = 4046410678) 65 U/L 34-122 ALTv (test code = 1742-6) 11 U/L 5-50 AST(SGOT) (test code = 7808158654) 23 U/L 13-40 Lab Interpretation (test code = Abnormal 96085-5) [facility] [id number] 03:38:00 Test Item Value Reference Range Interpretation Comments AB HEPATITIS A IGM NEGATIVE (test code = HAVMAB) AG HEPATITIS B NEGATIVE SCREEN NEGATIVE SURFACE (test code = HBSAG) AB HEPATITIS B CORE NEGATIVE IGM (test code = HBCMAB) AB HEPATITIS C (test <0.1 RATIO <0.8 S/C RAT ION 0.0 - code = HCVAB) 0.9 NEGATIVE <0.8INDETERMINA TE 0.8 - 0.9POSITI VE >0.9 [id number] 16:06:00 Test Item Value Reference Range Interpretation Comments SURG (test code = SURG) RUN DATE: 10/07/20 [facility] PAGE 1 RUN TIME: 1607 Specimen Inquiry RUN USER: INTERFACE PATIENT: FIONA SANCHES JR LOC: RoseYARITZAGHADAViviane U #: [id number] AGE/SX: 35/M ROOM: WINTER RE10/06/20REG DR: Sreekanth Garcia MD : 84 BED: 3 DIS: STATUS: ADM Arcadio TLOC: SPEC #: [id number] RECD: 10/06/20 STATUS: ELZA CHURCHILL #: [id number] MIRIAM: 10/06/[address]: Sreekanth Garcia MD ENTERED: 10/06/20 SP TYPE: SURG OTHR DR: DOES_NOT KNOW No Primary or Family Physician Juan Mcbride MD, Jignesh P MDORDERED: SURG PATH LVL 4 COPIES TO: DOES_NOT KNOW No Primary [place] [address] [address] [email or web address] [address] [place], [place] [address] Arnulfo Cormier MD [address] [place] [address] HISTOLOGY: TISSUE ID BLK PCS KANWAL LEV PROCEDURE DISPOSITION ____ ___ ___ ___ ESOPHAGUS, NOS A 1 2 PROCEDURES: SURG PATH LVL 4 (10/06/20) TISSUES: A. ESOPHAGUS, NOS - ESOPHAGUS BIOPSY CLINICAL HISTORY ESOPHAGEAL FOOD BOLUS, STRICTURE V DYSMOTILITY CONTINUED ON NEXT PAGE RUN DATE: 10/07/20 [facility] PAGE 2 RUN TIME: 1607 Specimen Inquiry RUN USER: INTERFACE SPEC #: [facility]:[id number] PATIENT: FIONA SANCHES JR #[id number] (Continued) CPT CODES CPT CODE(S): 11234 , , , , , , FINAL DIAGNOSIS Esophagus, biopsy: ACUTE ESOPHAGITIS WITH CANDIDIASIS NEGATIVE FOR INTESTINAL METAPLASIA, DYSPLASIA, OR MALIGNANCY GROSS DESCRIPTION Esophagus biopsy. Received in formalin are multiple minute fragments of suarez soft tissue, 0.1 - 0.3 cm. The specimen is filtered in a teabag and entirely submitted as A. ba/nr Grossing performed at [facility] Pathology, [address] [place] [address], [address], [place] [address]. Hearse Driver: Abner Steward M.D. MICROSCOPIC DESCRIPTION Esophagus [...] indicativ e of the presence code = YFJPO53YA) ofSARS-CoV -2 RNA, clinical correlation wit h [...] indicativ e of the presence code = LOASV46GO) ofSARS-CoV -2 RNA, clinical correlation wit h [...] for the identification of SARS-CoV-2 RNA usingthe [employer] M2000 Sy stem under the FDA Emergen cy UseAuthorizatio n. The testing is perf ormed by personneltrakristopher d in the procedures for the [employer] M2000 molecular diagnostic SARS-CoV-2 assa y in vitro. CBC W/AUTO [id number] 13:10:00 Test Item Value Reference Range Interpretation [...] NT WITH AUTO DIFFERENTI AL. CBC W/AUTO [id number] 13:10:00 Test Item Value Reference Range Interpretation [...] CONSISTA NT WITH AUTO DIFFERENTI AL. RBC [id number] 13:10:00 Test Item Value Reference Range Interpretation Comments PLATELET ESTIMATE DECREASED THOUSAND ADEQUATE PLAT ELET COUNT (test code = REVIEWED AND PLTEST) VERIFIED. PLATELET MORPHOLOGY NORMAL (test code = PLTMORPH) CBC W/AUTO [id number] 13:10:00 Test Item Value Reference Range Interpretation [...] NT WITH AUTO DIFFERENTI AL. COMPREHENSIVE METABOLIC [id number] 11:48:00 Test Item Value Reference Range Interpretation [...] TOTAL (test code = ALKP) CBC W/AUTO [id number] 11:33:00 Test Item Value Reference Range Interpretation [...] REQUIRED (test code = DIFF/SCN CRITERIA MDIFF) [id number] 04:59:00 Test Item Value Reference Range Interpretation Comments AMMONIA (test code = AMM) 56 mcMOL/L 11-32 H LACTIC [id number] 04:59:00 Test Item Value Reference Range Interpretation Comments LACTIC ACID (test code = LACT) 0.7 mmol/L 0.4-2.0 N GLUCOSE BEDSIDE [id number] 20:35:00 Test Item Value Reference Range Interpretation Comments GLUCOSE BEDSIDE TESTING (test code 109 mg/dL 70-110 N = GLUBED) GLUCOSE BEDSIDE [id number] 17:10:00 Test Item Value Reference Range Interpretation Comments GLUCOSE BEDSIDE TESTING (test code 105 mg/dL 70-110 N = GLUBED) - US ABDOMEN [id number] 16:39:00 [facility] 1985 Sex: M Name: FIONA SANCHES JR [facility] : 1985 Age/S: 35 / M [address] Unit #: [id number]: [place] [address] Phys: Matilda Kirk PA-C Acct: [id number] Dis Date: Status: ADM IN PHONE #: [phone] Exam Date: 10/06/2020 5391 FAX #: Reason: elevated lfts, evaluate for cirrhosis EXAMS: CPT: [id number] [facility] [address] RIGHT UPPER QUADRANT ULTRASOUND. CLINICAL HISTORY: Elevated [...] Signed Report (CONTINUED) Name: FIONA SANCHES JR [place] : 1985 Age/S: 35 / M [address] Unit #: [id number] Loc: [place] [address] Phys: Matilda Kirk PA-C Acct: [id number] Dis Date: Status: ADM IN PHONE #: [phone] Exam Date: 10/06/2020 1517 FAX #: Reason: elevatedlfts, evaluate for cirrhosis EXAMS: CPT: [id number] [facility]BDOMEN [facility] [address]70 (Continued) CC: Sreekanth Garcia MD; Matilda Kirk Technologist: Rae Malave Date/Time: 10/06/2020 (1639) [id number] PAGE 2 Signed Report Name: FIONA SANCHES JR [place] : 1985 Age/S: 35 / M [address] Unit #: [id number] Loc: [place] [address] Phys: Matilda Kirk PA-C Acct: [id number] Dis Date: Status: ADM IN PHONE #: [phone] Exam Date: 10/06/2020 1518 FAX #: Reason: elevated lfts, evaluate for cirrhosis EXAMS: CPT: [id number] [facility] ABDOMEN LTD [address]854 (Continued) Orig Print D/T: S: 10/06/2020 (7933) Probe: PAGE 3 Signed ReportUA RFLX MICR CULT IF [id number] 15:23:00 Test Item Value Reference Range Interpretation [...] 92 mg/dL 70-110 N GLUBED) GLUCOSE BEDSIDE [id number] 13:37:00 Test Item Value Reference Range Interpretation Comments GLUCOSE BEDSIDE TESTING (test code = 58 mg/dL 70-110 L GLUBED) CREATINE KINASE (CK)2020-10-06 11:26:00 Test Item Value Reference Range Interpretation Comments CREATINE KINASE (CK) (test code = 287 Unit/L 26-192 H CK) [id number] 11:26:00 Test Item Value Reference Range Interpretation Comments AMYLASE (test code = JOSE CARLOS) 120 Unit/L 25-115 H [id number] 11:26:00 Test Item Value Reference Range Interpretation Comments LIPASE (test code = LIP) 112 Unit/L 114-286 L CBC W/AUTO [id number] 09:58:00 Test Item Value Reference Range Interpretation [...] DIFF/SCN CRITERIA (test code = MDIFF) WBC [id number] 09:58:00 Test Item Value Reference Range Interpretation [...] NORMAL (test code = PLTMORPH) CBC W/AUTO [id number] 09:55:00 Test Item Value Reference Range Interpretation [...] DIFF/SCN CRITERIA (test code = MDIFF) WBC [id number] 09:55:00 Test Item Value Reference Range Interpretation Comments SEGMENTED NEUTROPHILS (test code = SEG) % 40-75 LYMPHOCYTE (test code = LYMPH) % 12.6-43.5 CBC W/AUTO [id number] 09:55:00 Test Item Value Reference Range Interpretation [...] DIFF/SCN CRITERIA (test code = MDIFF) WBC [id number] 09:55:00 Test Item Value Reference Range Interpretation Comments SEGMENTED NEUTROPHILS (test code = SEG) % 40-75 LYMPHOCYTE (test code = LYMPH) % 12.6-43.5 COMPREHENSIVE METABOLIC [id number] 09:14:00 Test Item Value Reference Range Interpretation [...] TOTAL (test code = ALKP) CBC W/AUTO [id number] 09:02:00 Test Item Value Reference Range Interpretation [...] CRITERIA (test code = MDIFF) GLUCOSE BEDSIDE [id number] 06:41:00 Test Item Value Reference Range Interpretation Comments GLUCOSE BEDSIDE TESTING (test code = 65 mg/dL 70-110 L GLUBED) COVID 19 INHOUSE [id number] 05:40:00 Test Item Value Reference Range Interpretation Comments COVID 19 INHOUSE AG NEGATIVE Negative Per manu facturer, (test code = negative result s should [id number]) be treated aspr esumptive and, if inconsi [...] co nsistent with COVID-19. - CT CHEST [id number] 03:30:[address] [facility] : 1985 Sex: M Name:FIONA SANCHES JR : 1985 Age/S: 35 / M [address] Unit #: [id number] Loc: [place] [address] Phys: Scott Person MD Acct: [id number] Dis Date: Status: REG ER PHONE #: [phone] Exam Date: 10/06/2020 0244 FAX #: Reason: possible esophageal pneumatosis EXAMS: CPT: [id number] CT CHEST W/CONTRAST 02678 DICTATION LOCATION: H48 HISTORY: Male, 35 years of age with esophageal pain for 2 months; evaluate for esophageal pneumatosis EXAM: CT CHEST WITH IV CONTRAST (ROUTINE)COMPARISON: None TECHNIQUE: Helical axial images were obtained through the chest with 100 mL nonionic IV contrast using the routine chest protocol. Coronal and sagittal reformats were performed. One ormore of the following dose reduction techniques were [...] Signed Report (CONTINUED) Name: FIONA SANCHES JR [facility] : 1985 Age/S: 35 / M [address] Unit #: [id number] Loc: [place] [address] Phys: Scott Person MD Acct: [id number] Dis Date: Status: REG ER PHONE #: [phone] Exam Date: 10/06/2020 0245 FAX#: Reason: possible esophageal pneumatosis EXAMS: CPT: [id number] CT CHEST W/CONTRAST 76419 (Continued) (i.e. scleroderma or dermatomyositis). Infiltrative neoplasm is included differential but I do not identify a distinct mass. 2. No evidence for esophageal pneumatosis or pneumomediastinum. 3. Multilobar groundglass interstitial pneumonia. Commonly reported imaging features [...] (033) PAGE 2 Signed Report- CT NECK W/CONTRAST 2020-10-06 03:11:00 [facility] 1985 Sex: M Name:FIONA SANCHES JR : 1985 Age/S: 35 / M [address] Unit #: [id number] Loc: [place] [address] Phys: Scott Person MD Acct: [id number] Dis Date: Status: REG ER PHONE #: [phone] Exam Date: 10/06/2020 0250 FAX #: Reason: possible esophageal pneumatosis EXAMS: CPT: [id number] CT NECK W/CONTRAST 74502 EXAM: - CT NECK W/CONTRAST LOCATION: H57 INDICATION: 35 years - old Male with possible esophageal pneumatosis COMPARISON: None [...] at 0311 Reported and signed by: Gianni Nguyễn M.D. PAGE 1 Signed Report (CONTINUED) Name: FIONA SANCHES JR : 1985 Age/S: 35 / M [address] Unit #: [id number] Loc: [place] [address] Phys: Scott Person MD Acct: [id number] Dis Date: Status: REG ER PHONE #: [phone] Exam Date: 10/06/2020 0250 FAX #: Reason: possible esophageal pneumatosis EXAMS: CPT: [id number] CT NECK W/CONTRAST 14222 (Continued) CC: Technologist:Valentine Momin, RT(R)(CT); CTDI: DLP: Trnscb Date/Time: 10/06/2020 (310) [email or web address] Orig Print D/T: S: 10/06/2020 (313) PAGE 2 Signed ReportBASIC METABOLIC [id number] 02:14:00 Test Item Value Reference Range Interpretation [...]
[2022-08-31] MEDS ORDERED: MORPHINE 4 MG/ML SYR ONE (08:02)
--- NOTE | 2022-08-31 10:58 | RAD REPORT ---
EXAM DESCRIPTION: RAD - ENTEROSTOMY TUBE CHECK W/CONTR - 08/31/2022 10:06 am FINDINGS: Three KUB images were obtained 1 prior to and 2 following replacement or repositioning of a PEG tube. Post-contrast images show injected contrast retained within the lumen of the stomach with peristalsis activity carrying the contrast into the proximal small bowel. .
--- NOTE | 2022-08-31 11:20 | EDPHYS ---
Physician Documentation [facility] Name: Tahir Ag Jr Age: 37 yrs Sex: Male : 1985 Arrival Date: 08/31/2022 Time: 07:48 Bed 5 Private MD: ED Physician Omari Wang HPI: 08/31 11:15 This 37 yrs old Black Male presents to ER via EMS with complaints of PEG tube leaking. rn 11:15 Pt reports feeding tube leaking for last few days, no fever, no trauma, no vomiting.. rn Onset: The symptoms/episode began/occurred at an unknown time. Severity of symptoms: At their worst the symptoms were moderate in the emergency department the symptoms are unchanged. The patient has experienced similar episodes in the past. The patient has not recently seen a physician. Historical: - Allergies: 07:52 No Known Allergies; tw2 - PMHx: 07:52 achalasia; Bipolar disorder; Diabetes - NIDDM; Hernia; Hypertension; Schizophrenia; tw2 Seizure; - PSHx: 07:52 gastrostomy tube; tw2 - Immunization history:: Adult Immunizations. - Social history:: Smoking status: . - Family history:: not pertinent. - Hospitalizations: : No recent hospitalization is reported. ROS: 11:15 Constitutional: Negative for fever, chills, and weight loss, Eyes: Negative for injury, rn pain, redness, and discharge, Cardiovascular: Negative for chest pain, palpitations, and edema, Respiratory: Negative for shortness of breath, cough, wheezing, and pleuritic chest pain, Abdomen/GI: Negative for abdominal pain, nausea, vomiting, diarrhea, and constipation, + leaking feeding tube Back: Negative for injury and pain, MS/Extremity: Negative for injury and deformity, Skin: Negative for injury, rash, and discoloration, Neuro: Negative for headache, weakness, numbness, tingling, and seizure. Exam: 11:15 Constitutional: Thin malnourished male, no acute distress Head/Face: Normocephalic, rn atraumatic. Cardiovascular: Regular rate and rhythm. No pulse deficits. Respiratory: No increased work of breathing, no retractions or nasal flaring. Abdomen/GI: soft, + non-tender, + mild leakage around feeding tube. Skin: Warm, dry MS/ Extremity: Pulses equal, no cyanosis. Neuro: Awake and alert, GCS 15 Vital Signs: 07:50 BP 101 / 65; Weight 44.45 kg; Height 5 ft. 5 in. (165.10 cm) (R); tw2 07:55 Pulse 69; Resp 17; Temp 97.6(TE); Pulse Ox 96% on R/A; tw2 09:09 BP 89 / 66; Pulse 54; Resp 17; Pulse Ox 100% on R/A; tw2 11:26 BP 93 / 63; Pulse 52; Resp 17; Pulse Ox 95% on R/A; tw2 07:50 Body Mass Index 16.31 (44.45 kg, 165.10 cm) tw2 09:09 Map 75 tw2 11:26 map 73 tw2 Procedures: 11:15 G-tube placement: a 20 [place] catheter was placed, by the ED physician, Omari Wang MD rn Post xray shows good placement. MDM: 07:48 Patient medically screened. rn 11:15 Differential Diagnosis feeding tube malfunction, feeding tube stoma widening/loosening. rn Data reviewed: vital signs, nurses notes, radiologic studies, plain films, and as a result, I will discharge patient. Counseling: I had a detailed discussion with the patient and/or guardian regarding: the historical points, exam findings, and any diagnostic results supporting the discharge/admit diagnosis, radiology results, the need for outpatient follow up, to return to the emergency department if symptoms worsen or persist or if there are any questions or concerns that arise at home. Response to treatment: the patient's symptoms have markedly improved after treatment, and as a result, I will discharge patient. Special discussion: I discussed with the patient/guardian in detail that at this point there is no indication for admission to the hospital. It is understood, however, that if the symptoms persist or worsen the patient needs to return immediately for re-evaluation. 08/31 09:21 Order name: PEG Tube Check w/contrast; Complete Time: 11:14 rn Administered Medications: 08:03 Drug: morphine 4 mg {Note: RASS 0.} Route: IM; Site: right deltoid; tw2 10:10 Follow up: Response: No adverse reaction; Pain is decreased; RASS: Alert and Calm (0) tw2 Disposition Summary: 08/31/22 11:20 Discharge Ordered Location: Home rn Problem: new rn Symptoms: have improved rn Condition: Stable rn Diagnosis - Other complications of gastrostomy rn Followup: rn - With: Private Physician - When: As needed - Reason: Recheck today's complaints, Re-evaluation by your physician Discharge Instructions: - Discharge Summary Sheet rn - How to Care for a Feeding Tube rn Forms: - Medication Reconciliation Form rn - Thank You Letter rn - Antibiotic plaster patternmaker - Prescription Opioid Use rn Signatures: Dispatcher [employer] EDOmari Moore MD MD rn Wise, Tara, RN RN tw2
--- NOTE | 2022-08-31 11:20 | ER ---
Nurse's Notes [facility] Name: Tahir Ag Jr Age: 37 yrs Sex: Male : 1985 Arrival Date: 08/31/2022 Time: 07:48 Bed 5 Private MD: Diagnosis: Other complications of gastrostomy Presentation: 08/31 07:50 Chief complaint: EMS states: pt states his feeding tube has been leaking for 2 days and tw2 he states he has been keeping it clean. BP 98/68. Coronavirus screen: At this time, the client does not indicate any symptoms associated with coronavirus-19. Ebola Screen: Patient denies travel to an Ebola-affected area in the 21 days before illness onset. Initial Sepsis Screen: Does the patient meet any 2 criteria? No. Patient's initial sepsis screen is negative. Does the patient have a suspected source of infection? No. Patient's initial sepsis screen is negative. Risk Assessment: Do you want to hurt yourself or someone else? Patient reports no desire to harm self or others. Onset of symptoms was August 31, 2022. 07:50 Method Of Arrival: EMS: [facility] tw2 07:50 Acuity: MARTINA 3 tw2 Triage Assessment: 07:52 General: Appears in no apparent distress. slender, unkempt, Behavior is calm, tw2 cooperative, appropriate for age. Pain: Complains of pain in feeding tube area. Neuro: Level of Consciousness is awake, alert, obeys commands, Oriented to person, place, time, situation. Respiratory: Airway is patent Respiratory effort is even, unlabored, Respiratory pattern is regular, symmetrical. Derm: redness noted around feeding tube. pt is soiled and wet and states "its all from my feeding tube". Musculoskeletal: Range of motion: intact in all extremities. Historical: - Allergies: 07:52 No Known Allergies; tw2 - PMHx: 07:52 achalasia; Bipolar disorder; Diabetes - NIDDM; Hernia; Hypertension; Schizophrenia; tw2 Seizure; - PSHx: 07:52 gastrostomy tube; tw2 - Immunization history:: Adult Immunizations. - Social history:: Smoking status: . - Family history:: not pertinent. - Hospitalizations: : No recent hospitalization is reported. Screenin:54 Abuse screen: Denies threats or abuse. Nutritional screening: No deficits noted. tw2 Tuberculosis screening: No symptoms or risk factors identified. Fall Risk None identified. Assessment: 07:54 Reassessment: see triage assessment. tw2 07:55 Reassessment: pt given wipes and gown to clean himself and change at this time. tw2 08:11 Reassessment: peg tubes for replacement at bedside at this. tw2 09:09 Reassessment: Patient appears in no apparent distress at this time. No changes from tw2 previously documented assessment. Patient and/or family updated on plan of care and expected duration. Pain level reassessed. Patient is alert, oriented x 3, equal unlabored respirations, skin warm/dry/pink. 11:26 Reassessment: Patient appears in no apparent distress at this time. No changes from tw2 previously documented assessment. Patient and/or family updated on plan of care and expected duration. Pain level reassessed. Patient is alert, oriented x 3, equal unlabored respirations, skin warm/dry/pink. Vital Signs: 07:50 BP 101 / 65; Weight 44.45 kg; Height 5 ft. 5 in. (165.10 cm) (R); tw2 07:55 Pulse 69; Resp 17; Temp 97.6(TE); Pulse Ox 96% on R/A; tw2 09:09 BP 89 / 66; Pulse 54; Resp 17; Pulse Ox 100% on R/A; tw2 11:26 BP 93 / 63; Pulse 52; Resp 17; Pulse Ox 95% on R/A; tw2 07:50 Body Mass Index 16.31 (44.45 kg, 165.10 cm) tw2 09:09 Map 75 tw2 11:26 map 73 tw2 ED Course: 07:48 Patient arrived in ED. rn 07:48 Omari Wang MD is Attending Physician. rn 07:48 Bed in low position. Call light in reach. Pulse ox on. NIBP on. Warm blanket given. tw2 07:49 Teagan Green RN is Primary Nurse. tw2 07:50 Arm band placed on. tw2 07:52 Triage completed. tw2 10:08 PEG Tube Check w/contrast In Process Unspecified. EDMS 11:31 No provider procedures requiring assistance completed. Patient did not have IV access tw2 during this emergency room visit. Administered Medications: 08:03 Drug: morphine 4 mg {Note: RASS 0.} Route: IM; Site: right deltoid; tw2 10:10 Follow up: Response: No adverse reaction; Pain is decreased; RASS: Alert and Calm (0) tw2 Medication: 09:10 VIS not applicable for this client. tw2 Outcome: 11:20 Discharge ordered by . rn 11:31 Discharged to home ambulatory. tw2 11:31 Condition: stable 11:31 Discharge instructions given to patient, Instructed on discharge instructions, follow up and referral plans. Demonstrated understanding of instructions, follow-up care. 11:32 Patient left the ED. tw2 Signatures: Dispatcher [employer] EDMS Omari Wang MD MD rn Wise, Tara, RN RN tw2
[2022-08-31 11:38] VITALS: TEMP 97.6
[2022-08-31 11:40] VITALS: BP 93/63; O2SAT 95
== END 2022-08-31 11:32 | disposition home or self-care (01) ==
LOC: ER 07:44
DX: K94.29 Other complications of gastrostomy (principal); E11.9 Type 2 diabetes mellitus without complications; I10 Essential (primary) hypertension; F31.9 Bipolar disorder, unspecified; F20.9 Schizophrenia, unspecified
CPT/HCPCS: 49465; 96372; 99284

== ENCOUNTER 2022-09-04 09:35 | Emergency (ER) | payer OTHER ==
--- OUTSIDE RECORDS SUMMARY | 2022-09-04 09:48 | XMS REPORT | Continuity of Care Document ---
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 Tue07/09/22 at 2100, Last dose on [...] 00 :00 dose, On Medi erendira mg Tue Branch 07/09/22 at 1900, ROBERTO potassium 2021- No 10meq 10 mEq, IV Univers chloride in 05-27 Piggyback, i ty of water 10 03:00: 03:05 ONCE, 1 [place] mEq/100 mL 00 :00 dose, On Medic al RTU 10 mEq 05/26/22 [facility] at 2200, Administer over 60 Minutes, [...] anch mg at 2015, Routine ondansetron Yes [id number] 8mg Take 1 Univers 8 mg 8-03 tablet by ity of disintegrat 00:00: mouth [place] ing tablet 00 every 8 Medica l (eight) Branch hours as needed for Nausea and Vomiting (N/V). ondansetron Yes [id number] 8mg Take 1 Univers 8 mg 8-03 tablet by ity of disintegrat 00:00: mouth [place] ing tablet 00 every 8 Medica l (eight) Branch hours as needed for Nausea and Vomiting (N/V). ondansetron 2-0 Yes [id number] 8mg Take 1 Univers 8 mg 8-03 tablet by ity of disintegrat 00:00: mouth [place] ing tablet 00 every 8 Medica l (eight) Branch hours as needed for Nausea and Vomiting (N/V). ondansetron 2-0 Yes [id number] 8mg Take 1 Univers 8 mg 8-03 tablet by ity of disintegrat 00:00: mouth [place] ing tablet 00 every 8 Medica l (eight) Branch hours as needed for Nausea and Vomiting (N/V). ondansetron 2-0 Yes [id number] 8mg Take 1 Univers 8 mg 8-03 tablet by ity of disintegrat 00:00: mouth [place] ing tablet 00 every 8 Medica l (eight) Branch hours as needed for Nausea and Vomiting (N/V). ondansetron 2-0 Yes [id number] 8mg Take 1 Univers 8 mg 8-03 tablet by ity of disintegrat 00:00: mouth [place] ing tablet 00 every 8 Medica l (eight) Branch hours as needed for Nausea and Vomiting (N/V). ondansetron 2-0 Yes [id number] 8mg Take 1 Univers 8 mg 8-03 tablet by ity of disintegrat 00:00: mouth [place] ing tablet 00 every 8 Medica l (eight) Branch hours as needed for Nausea and Vomiting (N/V). ondansetron 2-0 Yes [id number] 8mg Take 1 Univers 8 mg 8-03 tablet by ity of disintegrat 00:00: mouth [place] ing tablet 00 every 8 Medica l (eight) Branch hours as needed for Nausea and Vomiting (N/V). ondansetron 2-0 Yes [id number] 8mg Take 1 Univers 8 mg 8-03 tablet by ity of disintegrat 00:00: mouth [place] ing tablet 00 every 8 Medica l (eight) Branch hours as needed for Nausea and Vomiting (N/V). ondansetron 2022-0 Yes [id number] 8mg Take 1 Univers 8 mg 8-03 tablet by ity of disintegrat 00:00: mouth [place] ing tablet 00 every 8 Medica l (eight) Branch hours as needed for Nausea and Vomiting (N/V). ondansetron 2022-0 Yes [id number] 8mg Take 1 Univers 8 mg 8-03 tablet by ity of disintegrat 00:00: mouth [place] ing tablet 00 every 8 Medica l (eight) Branch hours as needed for Nausea and Vomiting (N/V). ondansetron Yes [id number] 8mg Take 1 Univers 8 mg 8-03 tablet by ity of disintegrat 00:00: mouth [place] ing tablet 00 every 8 Medica l (eight) Branch hours as needed for Nausea and Vomiting (N/V). ondansetron Yes [id number] 8mg Take 1 Univers 8 mg 8-03 tablet by ity of disintegrat 00:00: mouth [place] ing tablet 00 every 8 Medica l (eight) Branch hours as needed for Nausea and Vomiting (N/V). ondansetron Yes [id number] 8mg Take 1 Univers 8 mg 8-03 tablet by ity of disintegrat 00:00: mouth [place] ing tablet 00 every 8 Medica l (eight) Branch hours as needed for Nausea and Vomiting (N/V). ondansetron 2021- No [id number] 8mg Take 1 Univers 8 mg 8-03 11-02 tablet by ity of disintegrat 00:00: 00:00 [place] tablet 00 :00 every 8 Medica l (eight) Branch hours as needed for Nausea and Vomiting (N/V). pantoprazol 2- No [id number] 40mg Take 20 mL Univers e 2 mg/mL 05-26 through ity of oral 00:00: 04:59 enteral [place] suspension 00 :00 tube in Medica l the Branch morning for 30 days. pantoprazol 2021- No [id number] 40mg Take 20 mL Univers e 2 mg/mL 05-26 through ity of oral 00:00: 04:59 enteral [place] suspension 00 :00 tube in Medica l the Branch morning for 30 days. valproic Yes Take by [facility] s acid, as 7-12 mouth. Pt ity [...] unaware of [place] salt, 07 dosage [facility] paliperidon Yes by Univer s e palmitate 7-12 Intramuscu it y of (INVEGA 12:18: lar route [place] TRINZA IM) 07 once every Med ical month. Branch Takes monthly on the valproic Yes Take by Univer s acid, as 7-12 mouth. Pt ity of sodium 12:18: unaware of [place] salt, 07 dosage [facility] paliperidon Yes by [...] on Tue Branch 04/30/22 at 2221, Until [place] 05/02/22 at 2220, Routine, Pain (scale 7-10) [...] 1000mL at 999 Uni vers (NS) bolus 04-27-05 mL/hr, ity of infusion 00:30: 02:03 1,000 mL, [place] as 1,000 mL 00 :00 IV Medical Infusion, Branch ONCE, 1 dose, On Tue04/26/22 at 1930, ROBERTO potassium 2021- No 20meq 20 mEq, IV Univers chloride 20 04-27 Piggyback, i ty of mEq/100 mL 00:30: 02:03 ONCE, 1 [place] as (KCL) 20 00 :00 dose, On Medical mEq/100 mL Tue04/26/22 [facility] RTU IVPB 20 at 1930, mEq [...] Branch at 1830, STAT iopamidol 2021- No [id number] 50mL 50 mL, U nivers (ISOVUE 04-26 Intravenou ity o f 370-500 mL) 22:57: 22:57 s, ONCE, 1 [place] injection 00 :00 dose, On Medica l 50 mL Tue04/26/22 Branch at 1815, Routine valproic Yes Take by [id number] s acid, as 04-26 mouth. Pt ity of sodium 21:06: unaware of [place] salt, 35 dosage Medical (DEPAKENE Branch ORAL) paliperidon Yes by Univer s e palmitate 04-26 Intramuscu it y of (INVEGA 21:06: lar route [place] TRINZA IM) 35 once every Med ical month. Branch Takes monthly on the valproic Yes Take by [facility] s acid, as - mouth. Pt ity [...] month. Branch Takes monthly on the ibuprofen 2021-0 Yes [id number] 200mg Take 10 mL Univers 100 mg/5 mL 5-20 by mouth 3 it y of oral 00:00: (three) [place] suspension 00 times Medical daily with Branch meals. ibuprofen 2022-0 Yes [id number] 200mg Take 10 mL Univers 100 mg/5 mL 5-20 by mouth 3 it y of oral 00:00: (three) [place] suspension 00 times Medical daily with Branch meals. ibuprofen 2022-0 Yes [id number] 200mg Take 10 mL Univers 100 mg/5 mL 5-20 by mouth 3 it y of oral 00:00: (three) [place] suspension 00 times Medical daily with Branch meals. ibuprofen 2022-0 Yes [id number] 200mg Take 10 mL Univers 100 mg/5 mL 5-20 by mouth 3 it y of oral 00:00: (three) [place] suspension 00 times Medical daily with Branch meals. ibuprofen 2022-0 Yes [id number] 200mg Take 10 mL Univers 100 mg/5 mL 5-20 by mouth 3 it y of oral 00:00: (three) [place] suspension 00 times Medical daily with Branch meals. ibuprofen 2022-0 Yes [id number] 200mg Take 10 mL Univers 100 mg/5 mL 5-20 by mouth 3 it y of oral 00:00: (three) [place] suspension 00 times Medical daily with Branch meals. ibuprofen 2022-0 Yes [id number] 200mg Take 10 mL Univers 100 mg/5 mL 5-20 by mouth 3 it y of oral 00:00: (three) [place] suspension 00 times Medical daily with Branch meals. ibuprofen 2022-0 Yes [id number] 200mg Take 10 mL Univers 100 mg/5 mL 5-20 by mouth 3 it y of oral 00:00: (three) [place] suspension 00 times Medical daily with Branch meals. ibuprofen 2022-0 Yes [id number] 200mg Take 10 mL Univers 100 mg/5 mL 5-20 by mouth 3 it y of oral 00:00: (three) [place] suspension 00 times Medical daily with Branch meals. ibuprofen 2022-0 Yes [id number] 200mg Take 10 mL Univers 100 mg/5 mL 5-20 by mouth 3 it y of oral 00:00: (three) [place] suspension 00 times Medical daily with Branch meals. ibuprofen 2022-0 Yes [id number] 200mg Take 10 mL Univers 100 mg/5 mL 5-20 by mouth 3 it y of oral 00:00: (three) [place] suspension 00 times Medical daily with Branch meals. ibuprofen 2022-0 Yes [id number] 200mg Take 10 mL Univers 100 mg/5 mL 5-20 by mouth 3 it y of oral 00:00: (three) [place] suspension 00 times Medical daily with Branch meals. ibuprofen 2022-0 Yes [id number] 200mg Take 10 mL Univers 100 mg/5 mL 5-20 by mouth 3 it y of oral 00:00: (three) [place] suspension 00 times Medical daily with Branch meals. ibuprofen 2022-0 Yes [id number] 200mg Take 10 mL Univers 100 mg/5 mL 5-20 by mouth 3 it y of oral 00:00: (three) [place] suspension 00 times Medical daily with Branch meals. ibuprofen 2022-0 Yes [id number] 200mg Take 10 mL Univers 100 mg/5 mL 5-20 by mouth 3 it y of oral 00:00: (three) [place] suspension 00 times Medical daily with Branch meals. ibuprofen 2022-0 Yes [id number] 200mg Take 10 mL Univers 100 mg/5 mL 5-20 by mouth 3 it y of oral 00:00: (three) [place] suspension 00 times Medical daily with Branch meals. ibuprofen 2022-0 Yes [id number] 200mg Take 10 mL Univers 100 mg/5 mL 5-20 by mouth 3 it y of oral 00:00: (three) [place] suspension 00 times Medical daily with Branch meals. ibuprofen 2-0 Yes [id number] 200mg Take 10 mL Univers 100 mg/5 mL 5-20 by mouth 3 it y of oral 00:00: (three) [place] suspension 00 times Medical daily with Branch meals. ibuprofen 2-0 Yes [id number] 200mg Take 10 mL Univers 100 mg/5 mL 5-20 by mouth 3 it y of oral 00:00: (three) [place] suspension 00 times Medical daily with Branch meals. ibuprofen 2-0 Yes [id number] 200mg Take 10 mL Univers 100 mg/5 mL 5-20 by mouth 3 it y of oral 00:00: (three) [place] suspension 00 times Medical daily with Branch meals. ibuprofen 2021-0 2022- No [id number] 200mg Take 10 mL Univers 100 mg/5 mL 5-20 11-02 by mouth 3 i ty of oral 00:00: 00:00 (three) [place] suspension 00 :00 times Medical daily with Branch meals. Immunizations Ordered Filled Immunization Date Status Comments [facility] e Immunization Name Name SARS-COV-2 COVID-19 2021-09-22 Completed Unive rsity of PFIZER VACCINE 00:00:00 [facility] SARS-COV-2 COVID-19 2021-09-22 Completed Unive rsity of PFIZER VACCINE 00:00:00 [facility] SARS-COV-2 COVID-19 2021-09-22 Completed Unive rsity of PFIZER VACCINE 00:00:00 [facility] SARS-COV-2 COVID-19 2021-09-22 Completed Unive rsity of PFIZER VACCINE 00:00:00 [facility] SARS-COV-2 COVID-19 2021-09-22 Completed Unive rsity of PFIZER VACCINE 00:00:00 [facility] SARS-COV-2 COVID-19 2021-09-22 Completed Unive rsity of PFIZER VACCINE 00:00:00 [facility] SARS-COV-2 COVID-19 2021-09-22 Completed Unive rsity of PFIZER VACCINE 00:00:00 [facility] SARS-COV-2 COVID-19 2021-09-22 Completed Unive rsity of PFIZER VACCINE 00:00:00 [facility] SARS-COV-2 COVID-19 2021-09-22 Completed Unive rsity of PFIZER VACCINE 00:00:00 [facility] SARS-COV-2 COVID-19 2021-09-22 Completed Unive rsity of PFIZER VACCINE 00:00:00 [facility] SARS-COV-2 COVID-19 2021-09-22 Completed Unive rsity of PFIZER VACCINE 00:00:00 [facility] SARS-COV-2 COVID-19 2021-09-22 Completed Unive rsity of PFIZER VACCINE 00:00:00 [facility] SARS-COV-2 COVID-19 2021-09-22 Completed Unive rsity of PFIZER VACCINE 00:00:00 [facility] SARS-COV-2 COVID-19 2021-09-22 Completed Unive rsity of PFIZER VACCINE 00:00:00 [facility] SARS-COV-2 COVID-19 2021-09-22 Completed Unive rsity of PFIZER VACCINE 00:00:00 [facility] SARS-COV-2 COVID-19 2021-09-22 Completed Unive rsity of PFIZER VACCINE 00:00:00 [facility] SARS-COV-2 COVID-19 2021-09-22 Completed Unive rsity of PFIZER VACCINE 00:00:00 [facility] SARS-COV-2 COVID-19 2021-09-22 Completed Unive rsity of PFIZER VACCINE 00:00:00 [facility] SARS-COV-2 COVID-19 2021-09-22 Completed Unive rsity of PFIZER VACCINE 00:00:00 [facility] SARS-COV-2 COVID-19 2021-09-22 Completed Unive rsity of PFIZER VACCINE 00:00:00 [facility] SARS-COV-2 COVID-19 2021-09-22 Completed Unive rsity of PFIZER VACCINE 00:00:00 [facility] SARS-COV-2 COVID-19 2021-09-22 Completed Unive rsity of PFIZER VACCINE 00:00:00 [facility] Influenza Virus 2020-08-30 Completed Universit y of Vaccine Quad .5 mL 00:00:00 [place] [facility] IM 6+ MO Branch Pneumococcal 2020-08-30 [...] y of Vaccine [place] .5 mL 00:00:00 [place] [facility] IM 6+ MO Branch Pneumococcal 2020-08-30 Completed University o f Polysaccharide, 00:00:00 [place] Med ical PPSV23 (PNEUMOVAX) Branch Influenza Virus 2020-08-30 Completed Universit y of Vaccine [place] .5 mL 00:00:00 [place] [facility] IM 6+ MO Branch Pneumococcal 2020-08-30 Completed University o f Polysaccharide, 00:00:00 [place] Med ical PPSV23 (PNEUMOVAX) Branch Influenza Virus 2020-08-30 Completed Universit y of Vaccine [place] .5 mL 00:00:00 [place] [facility] IM 6+ MO Branch Pneumococcal 2020-08-30 Completed University o f Polysaccharide, 00:00:00 [place] Med ical PPSV23 (PNEUMOVAX) Branch Influenza Virus 2020-08-30 Completed Universit y of Vaccine [place] .5 mL 00:00:00 [place] [facility] 6+ MO Branch Pneumococcal 2020-08-30 Completed University o f Polysaccharide, 00:00:00 [place] [facility] ical PPSV23 (PNEUMOVAX) Branch Influenza Virus 2020-08-30 Completed Universit y of Vaccine [place] .5 mL 00:00:00 [place] [facility] 6+ MO Branch Pneumococcal 2020-08-30 Completed University o f Polysaccharide, 00:00:00 [place] [facility] ical PPSV23 (PNEUMOVAX) Branch Influenza Virus 2020-08-30 Completed Universit y of Vaccine [place] .5 mL 00:00:00 [place] [facility] IM 6+ MO Branch Pneumococcal 2020-08-30 Completed University o f Polysaccharide, 00:00:00 [place] [facility] ical PPSV23 (PNEUMOVAX) Branch Influenza Virus 2020-08-30 Completed Universit y of Vaccine [place] .5 mL 00:00:00 [place] [facility] IM 6+ MO Branch Pneumococcal 2020-08-30 Completed University o f Polysaccharide, 00:00:00 [place] [facility] ical PPSV23 (PNEUMOVAX) Branch Influenza Virus 2020-08-30 Completed Universit y of Vaccine [place] .5 mL 00:00:00 [place] [facility] IM 6+ MO Branch Pneumococcal 2020-08-30 Completed University o f Polysaccharide, 00:00:00 [place] Med ical PPSV23 (PNEUMOVAX) Branch Influenza Virus 2020-08-30 Completed Universit y of Vaccine [place] .5 mL 00:00:00 [place] [facility] IM 6+ MO Branch Pneumococcal 2020-08-30 [...] y of Vaccine [place] .5 mL 00:00:00 [facility] 6+ MO Branch Pneumococcal 2020-08-30 Completed University o f Polysaccharide, 00:00:00 [place] [facility] ical PPSV23 (PNEUMOVAX) Branch Vital Signs Vital Name Observation Time Observation Value Comments Source Systolic blood 2022-08-25 16:24:00 103 mm[Hg] Univer sity of pressure [facility] Diastolic blood 2022-08-25 16:24:00 71 mm[Hg] [facility] Heart rate 2022-08-25 16:24:00 79 /min [facility] Body temperature 2022-08-25 16:24:00 36.56 Maude [facility] Respiratory rate 2022-08-25 16:24:00 18 /min [facility] Oxygen saturation in 2022-08-25 16:24:00 95 /min [facility] Arterial blood by [facility] Pulse oximetry Branch Body weight 2022-08-24 17:00:00 41.1 kg [facility] BMI 2022-08-24 17:00:00 15.08 kg/m2 [facility] Body height 2022-08-24 06:49:00 165.1 cm [facility] Systolic blood 2022-08-23 18:30:00 81 mm[Hg] Univer sity of pressure [place] [facility] Diastolic blood 2022-08-23 18:30:00 51 mm[Hg] Unive rsity of pressure [place] [facility] Heart rate 2022-08-23 18:30:00 69 /min Universi ty of [place] [facility] [place] Body temperature 2022-08-23 18:30:00 35.56 Maude Univ ersity of [place] [facility] Body height 2022-08-23 18:30:00 165.1 cm Universi ty of [place] [facility] Body weight 2022-08-23 18:30:00 36.288 kg Universi ty of [place] [facility] BMI 2022-08-23 18:30:00 13.31 kg/m2 Universi ty of [place] [facility] Systolic blood 2022-08-10 13:09:00 96 mm[Hg] Univer sity of pressure [place] [facility] Diastolic blood 2022-08-10 13:09:00 66 mm[Hg] Unive rsity of pressure [facility] Heart rate 2022-08-10 13:09:00 75 /min Universi ty of [place] [facility] [place] Body temperature 2022-08-10 13:09:00 34.28 Maude Univ ersity of [place] [facility] Body height 2022-08-10 13:09:00 165.1 cm Universi ty of [place] [facility] Body weight 2022-08-10 13:09:00 35.607 kg Universi ty of [place] [facility] BMI 2022-08-10 13:09:00 13.06 kg/m2 Universi ty of [facility] Systolic blood 2022-07-20 20:33:00 101 mm[Hg] Univer sity of pressure [place] [facility] Diastolic blood 2022-07-20 20:33:00 49 mm[Hg] Unive rsity of pressure [place] [facility] Heart rate 2022-07-20 20:33:00 67 /min Universi ty of [place] [facility] Body temperature 2022-07-20 20:33:00 36.11 Maude Univ ersity of [facility] Branch Respiratory rate 2022-07-20 20:33:00 18 /min Univ ersity of [facility] Oxygen saturation in 2022-07-20 20:33:00 97 /min University of Arterial blood by [facility] Pulse oximetry Branch Body weight 2022-07-20 02:15:00 41.277 kg Universi ty of [place] [facility] BMI 2022-07-20 02:15:00 15.14 kg/m2 [facility]i [facility] [place] [facility] Body height 2022-07-10 02:38:00 165.1 cm [facility]i ty [facility] [place] [facility] Systolic blood 2022-07-12 02:00:00 108 mm[Hg] Univer sity of pressure [place] [facility] Diastolic blood 2022-07-12 02:00:00 52 mm[Hg] Unive rsity of pressure [place] [facility] Heart rate 2022-07-12 02:00:00 96 /min Universi ty of [place] [facility] Body temperature 2022-07-12 02:00:00 36.67 Maude Univ ersity of [place] [facility] Respiratory rate 2022-07-12 02:00:00 25 /min Univ ersity of [place] [facility] Oxygen saturation in 2022-07-12 02:00:00 94 /min University of Arterial blood by [place] [employer] [facility] Pulse oximetry Branch Body weight 2022-07-11 08:23:00 35.97 kg Universi ty of [place] [facility] BMI 2022-07-11 08:23:00 12.83 kg/m2 [facility]i ty [facility] [place] [facility] Body height 2022-07-10 02:38:00 165.1 cm Universi ty [facility] [place] [facility] Systolic blood 2022-05-27 03:00:00 94 mm[Hg] Univer sity of pressure [place] [facility] Diastolic blood 2022-05-27 03:00:00 69 mm[Hg] Unive rsity of pressure [place] [facility] Heart rate 2022-05-27 03:00:00 73 /min Universi ty of [place] [facility] Respiratory rate 2022-05-27 03:00:00 18 /min Univ ersity of [place] [facility] Oxygen saturation in 2022-05-27 03:00:00 100 /min University of Arterial blood by [place] [employer] [facility] Pulse oximetry Branch Body temperature 2022-05-27 00:00:00 36.67 Maude Univ ersity of [place] [facility] Body height 2022-05-27 00:00:00 165.1 cm Universi ty [facility] [place] [facility] Body weight 2022-05-27 00:00:00 44.453 kg [facility]i ty [facility] [place] [facility] BMI 2022-05-27 00:00:00 16.31 kg/m2 Universi ty of [place] [facility] Systolic blood 2022-05-04 13:19:00 100 mm[Hg] Univer sity of pressure [place] [facility] Diastolic blood 2022-05-04 13:19:00 66 mm[Hg] Unive rsity of pressure [place] [facility] Heart rate 2022-05-04 13:19:00 60 /min Universi ty of [place] [facility] Body temperature 2022-05-04 13:19:00 36.83 Maude Univ ersity of [place] [facility] Respiratory rate 2022-05-04 13:19:00 14 /min Univ ersity of [place] [facility] Oxygen saturation in 2022-05-04 13:19:00 98 /min University of Arterial blood by [place] [facility] Pulse oximetry Branch BMI 2022-04-29 08:40:00 15.39 kg/m2 Universi ty of [place] [facility] Body weight 2022-04-29 08:40:00 41.958 kg Universi ty of [place] [facility] Body height 2022-04-27 02:59:00 165.1 cm Universi ty of [place] [facility] Systolic blood 2022-04-28 14:24:00 112 mm[Hg] Univer sity of pressure [place] [facility] Diastolic blood 2022-04-28 14:24:00 77 mm[Hg] Unive rsity of pressure [place] [facility] Heart rate 2022-04-28 14:24:00 51 /min Universi ty of [place] [facility] Body temperature 2022-04-28 14:24:00 36.56 Maude Univ ersity of [place] [facility] Respiratory rate 2022-04-28 14:24:00 16 /min Univ ersity of [place] [facility] Oxygen saturation in 2022-04-28 14:24:00 98 /min University of Arterial blood by [place] [employer] [facility] Pulse oximetry Branch Body weight 2022-04-28 09:16:00 43.999 kg Universi ty of [place] [facility] BMI 2022-04-28 09:16:00 15.39 kg/m2 Universi ty [facility] [place] [facility] Body height 2022-04-27 02:59:00 165.1 cm Universi ty of [place] [facility] Systolic blood 2022-04-28 16:55:00 111 mm[Hg] Univer sity of pressure [place] [facility] Diastolic blood 2022-04-28 16:55:00 74 mm[Hg] [facility] pressure [facility] Heart rate 2022-04-28 16:55:00 55 /min [facility] Body temperature 2022-04-28 16:55:00 36.39 Maude [facility] Respiratory rate 2022-04-28 16:55:00 15 /min [facility] Oxygen saturation in 2022-04-28 16:55:00 96 /min [facility] Arterial blood by [facility] Pulse oximetry [place] Body weight 2022-04-28 09:16:00 43.999 kg [facility] BMI 2022-04-28 09:16:00 16.14 kg/m2 [facility] Body height 2022-04-27 02:59:00 165.1 cm [facility] Procedures Procedure Date / Time Performing Source Performed Clinician BASIC METABOLIC PANEL (NA, K, CL, 2022-08-25 [facility] of CO2, GLUCOSE, BUN, CREATININE, CA) 10:44:00 [facility] US ABDOMEN LIMITED 2022-08-25 [facility] of 01:10:19 [facility] BASIC METABOLIC PANEL (NA, K, CL, 2022-08-24 [facility] of CO2, GLUCOSE, BUN, CREATININE, CA) 21:56:00 [facility] CT ABDOMEN PELVIS W CONTRAST 2022-08-24 Silas Briones [facility] n[facility] of 17:42:15 [facility] POCT GLUCOSE (AUTOMATED) 2022-08-24 JaimeNupur garcia [facility] ity of 16:45:00 [facility] PHOSPHORUS 2022-08-24 [facility] of 10:14:00 [facility] MAGNESIUM 2022-08-24 [facility] of 10:14:00 [facility] TROPONIN I 2022-08-24 Jaime, [facility] of 10:14:00 [facility] LACTIC ACID WHOLE BLOOD 2022-08-24 Nupur Sandoval [facility] ty of 10:13:00 [facility] MRSA / MSSA SCREEN BY CLAUDIA HARLEY 2022-08-24 Nupur Sandoval [facility] of 09:32:00 [facility] COMP. METABOLIC PANEL (80462) 2022-08-24 Nupur Sandoval Un iversity of 08:36:00 [facility] POCT GLUCOSE (AUTOMATED) 2022-08-24 Brett Hamilton [facility] ity of 01:42:00 [facility] PHOSPHORUS 2022-08-24 Brett Hamilton [facility] of 01:23:00 [facility] XR CHEST 1 VW 2022-08-24 Brett Hamilton [facility] of 00:48:19 [facility] XR KUB 2022-08-24 Brett Hamilton [facility] of 00:48:19 [facility] MAGNESIUM 2022-08-24 Brett Hamilton [facility] of 00:09:00 [facility] BASIC METABOLIC PANEL (NA, K, CL, 2022-08-24 Brett Hamilton [facility] of CO2, GLUCOSE, BUN, CREATININE, CA) 00:09:00 [facility] CBC WITH DIFF 2022-08-24 Brett Hamilton [facility] of 00:09:00 [facility] POCT GLUCOSE (AUTOMATED) 2022-08-23 Brett Hamilton [facility] ity of 23:43:00 [facility] CONSENT/REFUSAL FOR DIAGNOSIS AND 2022-08-23 [facility] of TREATMENT 23:33:39 Unassigned, No [facility] PREALBUMIN, SERUM 2022-08-23 Jude Murphy of 19:47:00 [facility] HEPATIC FUNCTION PANEL ([id number]) 2022-08-23 Jude Murphy niversity of (ALB,T.PRO,BILI 19:47:00 [facility],BU/BC,ALT,AST,ALK PHOS) [place] BASIC METABOLIC PANEL (NA, K, CL, 2022-08-23 Jude Murphy of CO2, GLUCOSE, BUN, CREATININE, CA) 19:47:00 [facility] CBC WITHOUT DIFF 2022-08-23 Jude Murphy of 19:47:00 [facility] POCT GLUCOSE (AUTOMATED) 2022-07-20 Jorden Robertson ity of 16:40:00 [facility] POCT GLUCOSE (AUTOMATED) 2022-07-20 Jorden Robertson ity of 12:49:00 [facility] PREALBUMIN, SERUM 2022-07-20 [facility] o f 10:59:00 [facility] CORTISOL AM 2022-07-20 Dotty Camarillo [facility] of 10:59:00 [facility] PHOSPHORUS 2022-07-20 [facility] of 10:52:00 [facility] MAGNESIUM 2022-07-20 [facility], [facility] of 10:52:00 [facility] BASIC METABOLIC PANEL (NA, K, CL, 2022-07-20 [facility], [facility] of CO2, GLUCOSE, BUN, CREATININE, CA) 10:52:00 [facility] POCT GLUCOSE (AUTOMATED) 2022-07-20 Kamron Robertsonlani Univers ity of 04:40:00 [facility] POCT GLUCOSE (AUTOMATED) 2022-07-20 Ovamarjit, Jorden Univers ity of 00:55:00 [facility] POCT GLUCOSE (AUTOMATED) 2022-07-19 Kamron Robertsonlani Univers ity of 22:01:00 [facility] POCT GLUCOSE (AUTOMATED) 2022-07-19 amarjit, Jorden Univers ity of 16:38:00 [facility] POCT GLUCOSE (AUTOMATED) 2022-07-19 Marcelo, Jorden Univers ity of 12:42:00 [facility] PHOSPHORUS 2022-07-19 Johana Guy [facility] of 10:20:[address] [facility] BASIC METABOLIC PANEL (NA, K, CL, 2022-07-19 Keysha Nguyen [facility] of CO2, GLUCOSE, BUN, CREATININE, CA) 10:20:[address] [facility] CBC WITH DIFF 2022-07-19 Deedee Nguyen [facility] of 10:20:[address] [facility] POCT GLUCOSE (AUTOMATED) 2022-07-19 Marcelo Jorden Univers ity of 08:56:00 [facility] POCT GLUCOSE (AUTOMATED) 2022-07-19 Ovamarjit, Jorden Univers ity of 06:09:00 [facility] POCT GLUCOSE (AUTOMATED) 2022-07-19 Ovamarjit, Jorden Univers ity of 01:10:00 [facility] POCT GLUCOSE (AUTOMATED) 2022-07-18 Kamron Robertsonlani [facility] ity of 21:12:00 [facility] POCT GLUCOSE (AUTOMATED) 2022-07-18 Kamron ocasiolani Univers ity of 16:26:00 [facility] POCT GLUCOSE (AUTOMATED) 2022-07-18 Jorden ocasio Univers ity of 13:13:00 [facility] PHOSPHORUS 2022-07-18 [facility], [facility] of 10:08:00 [facility] MAGNESIUM 2022-07-18 [facility] of 10:08:00 [facility] BASIC METABOLIC PANEL (NA, K, CL, 2022-07-18 [facility] of CO2, GLUCOSE, BUN, CREATININE, CA) 10:08:00 [facility] POCT GLUCOSE (AUTOMATED) 2022-07-18 Jorden Robertson [facility] ity of 10:07:00 [facility] POCT GLUCOSE (AUTOMATED) 2022-07-18 Jorden Robertson [facility] ity of 06:17:00 [facility] POCT GLUCOSE (AUTOMATED) 2022-07-18 Zachary Li [facility] ity of 01:38:00 [facility] POCT GLUCOSE (AUTOMATED) 2022-07-17 Zachary Li Univers ity of 21:37:00 [facility] POCT GLUCOSE (AUTOMATED) 2022-07-17 Zachary Li Univers ity of 16:46:00 [facility] POCT GLUCOSE (AUTOMATED) 2022-07-17 Zachary Li Univers ity of 13:01:00 [facility] PHOSPHORUS 2022-07-17 amarjit [facility] of 09:12:00 [facility] MAGNESIUM 2022-07-17 amarjit [facility] of 09:12:00 [facility] BASIC METABOLIC PANEL (NA, K, CL, 2022-07-17 [facility], [facility] of CO2, GLUCOSE, BUN, CREATININE, CA) 09:12:00 [facility] CBC WITH DIFF 2022-07-17 Jina [facility] of 09:12:00 [facility] POCT GLUCOSE (AUTOMATED) 2022-07-17 Zachary Li ity of 09:10:00 [facility] POCT GLUCOSE (AUTOMATED) 2022-07-17 Zachary Li Univers ity of 05:23:00 [facility] POCT GLUCOSE (AUTOMATED) 2022-07-17 Zachary Li ity of 01:06:00 [facility] POCT GLUCOSE (AUTOMATED) 2022-07-16 Zachary Li Univers ity of 21:35:00 [facility] POCT GLUCOSE (AUTOMATED) 2022-07-16 Zachary Li Univers ity of 16:31:00 [facility] POCT GLUCOSE (AUTOMATED) 2022-07-16 Zachary Li ity of 09:19:00 [facility] PHOSPHORUS 2022-07-16 [facility] of 08:41:00 [facility] MAGNESIUM 2022-07-16 [facility] of 08:41:00 [facility] FERRITIN SERUM 2022-07-16 [facility] of 08:41:00 [facility] IRON 2022-07-16 [facility] of 08:41:00 [facility] TOTAL IRON BINDING CAPACITY 2022-07-16 [facility] ersity of 08:41:00 [facility] BASIC METABOLIC PANEL (NA, K, CL, 2022-07-16 Jina [facility] University of CO2, GLUCOSE, BUN, CREATININE, CA) 08:41:00 [facility] CBC WITH DIFF 2022-07-16 [facility] of 08:41:00 [facility] RETICULOCYTES AUTOMATED 2022-07-16 Zachary Lii ty of 08:41:00 [facility] POCT GLUCOSE (AUTOMATED) 2022-07-16 Zachary Li Univers ity of 05:21:00 [facility] POCT GLUCOSE (AUTOMATED) 2022-07-16 Zachary Li Univers ity of 01:20:00 [facility] POCT GLUCOSE (AUTOMATED) 2022-07-15 Zachary Li Univers ity of 21:53:00 [facility] POCT GLUCOSE (AUTOMATED) 2022-07-15 Zachary Li Univers ity of 17:09:00 [facility] POCT GLUCOSE (AUTOMATED) 2022-07-15 Zachary Li ity of 13:45:00 [facility] XR KUB 2022-07-15 [facility] of 13:43:35 [facility] MAGNESIUM 2022-07-15 [facility] of 09:38:00 [facility] BASIC METABOLIC PANEL (NA, K, CL, 2022-07-15 Jc Muro [facility] University of CO2, GLUCOSE, BUN, CREATININE, CA) 09:38:00 [facility] CBC WITH DIFF 2022-07-15 Kelvin Muro [facility] of 09:38:00 [facility] POCT GLUCOSE (AUTOMATED) 2022-07-15 Zachary Li ity of 04:59:00 [facility] POCT GLUCOSE (AUTOMATED) 2022-07-15 Zachary Li Univers ity of 01:09:00 [facility] POCT GLUCOSE (AUTOMATED) 2022-07-14 Zachary Li Univers ity of 21:08:00 [facility] POCT GLUCOSE (AUTOMATED) 2022-07-14 Zachary Li ity of 16:10:00 [facility] POCT GLUCOSE (AUTOMATED) 2022-07-14 Zachary Li ity of 12:39:00 [facility] PHOSPHORUS 2022-07-14 Zachary Li of 10:36:00 [facility] MAGNESIUM 2022-07-14 Zachayr Li of 10:36:00 [facility] IRON 2022-07-14 Zachary Li of 10:36:00 [facility] COMP. METABOLIC PANEL ([id number]) 2022-07-14 Zachary Li Un iversity of 10:36:00 [facility] CBC WITH DIFF 2022-07-14 Zachary Li of 10:36:00 [facility] POCT GLUCOSE (AUTOMATED) 2022-07-14 Zachary Li Univers ity of 09:06:00 [facility] POCT GLUCOSE (AUTOMATED) 2022-07-14 Zachary Li [facility] ity of 05:22:00 [facility] POCT GLUCOSE (AUTOMATED) 2022-07-13 Zachary Li Univers ity of 22:27:00 [facility] POCT GLUCOSE (AUTOMATED) 2022-07-13 Zachary Li Univers ity of 20:56:00 [facility] POCT GLUCOSE (AUTOMATED) 2022-07-13 Zachary Li ity of 15:49:00 [facility] POCT GLUCOSE (AUTOMATED) 2022-07-13 Zachary Li ity of 15:15:00 [facility] POCT GLUCOSE (AUTOMATED) 2022-07-13 Zachary Li ity of 14:59:00 [facility] PREALBUMIN, SERUM 2022-07-13 Jina [facility] o f 10:51:00 [facility] PHOSPHORUS 2022-07-13 [facility] of 10:51:00 [facility] MAGNESIUM 2022-07-13 [facility] of 10:51:00 [facility] TOTAL IRON BINDING CAPACITY 2022-07-13 Zachary Li [facility] ersity of 10:51:00 [facility] BASIC METABOLIC PANEL (NA, K, CL, 2022-07-13 Jina, May [facility] University of CO2, GLUCOSE, BUN, CREATININE, CA) 10:51:00 [facility] CBC WITH DIFF 2022-07-13 [facility] of 10:51:00 [facility] XR CHEST 1 VW 2022-07-12 Zachary Li [facility] of 21:52:10 [facility] PREALBUMIN, SERUM 2022-07-12 GuillermoZachary [facility] of 15:31:00 [facility] VANCOMYCIN TROUGH 2022-07-12 [facility] of 11:07:00 [facility] VANCOMYCIN TROUGH 2022-07-12 [facility] of 11:07:00 [facility]OSPHORUS 2022-07-12 [facility] 10:02:00 [facility] URIC ACID 2022-07-12 Max [facility] 10:02:00 [facility] MAGNESIUM 2022-07-12 [facility] of 10:02:00 [facility] BASIC METABOLIC PANEL (NA, K, CL, 2022-07-12 Jina, May [facility] University of CO2, GLUCOSE, BUN, CREATININE, CA) 10:02:00 [facility] CBC WITH DIFF 2022-07-12 [facility] of 10:02:00 [facility] PHOSPHORUS 2022-07-12 [facility] of 10:02:00 [facility] URIC ACID 2022-07-12 Max Cruz [facility] 10:02:00 [facility] MAGNESIUM 2022-07-12 [facility] of 10:02:00 [facility] BASIC METABOLIC PANEL (NA, K, CL, 2022-07-12 Jina, May t University of CO2, GLUCOSE, BUN, CREATININE, CA) 10:02:00 [facility] CBC WITH DIFF 2022-07-12 Jina [facility] of 10:02:00 [facility] AC PANEL 20 + LACTIC ACID 2022-07-11 BhupinderfabiánBhaskar, [facility] ersity of 20:53:00 [facility] AC PANEL 20 + LACTIC ACID 2022-07-11 Johnny, [facility] ersity of 20:53:00 [facility] SURGICAL PATHOLOGY EXAM 2022-07-11 [facility] ty of 20:28:00 [facility] XR CHEST 1 VW 2022-07-11 [facility] of 19:33:38 [facility] XR CHEST 1 VW 2022-07-11 [facility] of 19:33:38 [facility] EXPLORATORY LAPAROTOMY 2022-07-11 [facility] y of 18:36:00 [facility] BOWEL RESECTION 2022-07-11 [facility] of 18:36:00 [facility] EXPLORATORY LAPAROTOMY 2022-07-11 [facility] y of 18:36:00 [facility] BOWEL RESECTION 2022-07-11 [facility] of 18:36:00 [facility] XR KUB 2022-07-11 [facility] of 16:08:01 [facility] XR KUB 2022-07-11 [facility] of 16:08:01 [facility] BASIC METABOLIC PANEL (NA, K, CL, 2022-07-11 Zachary Li [facility] of CO2, GLUCOSE, BUN, CREATININE, CA) 11:50:00 [facility] BASIC METABOLIC PANEL (NA, K, CL, 2022-07-11 Zachary Li [facility] of CO2, GLUCOSE, BUN, CREATININE, CA) 11:50:00 [facility] XR KUB 2022-07-11 [facility] of 11:39:00 [facility] XR KUB 2022-07-11 [facility] of 11:39:00 [facility] CBC WITH DIFF 2022-07-11 Zachary Li [facility] of 10:45:00 [facility] CBC WITH DIFF 2022-07-11 Zachary Li of 10:45:00 [facility] CT ABDOMEN PELVIS WO CONTRAST 2022-07-11 Zachary Li iversity of 01:46:33 [facility] CT ABDOMEN PELVIS WO CONTRAST 2022-07-11 Zachary Li iversity of 01:46:33 [facility] MRSA / MSSA SCREEN BY PCR, BANNERBARBI 2022-07-10 Zachary Li of 23:27:00 [facility] MRSA / MSSA SCREEN BY PCR, [facility] 2022-07-10 Zachary Li of 23:27:00 [facility] XR KUB 2022-07-10 Zachary Li of 22:40:17 [facility] XR KUB 2022-07-10 Zachary Li of 22:40:17 [facility] LACTIC ACID WHOLE BLOOD 2022-07-10 Iram Payne [facility] ity of 16:06:[address] [facility] LACTIC ACID WHOLE BLOOD 2022-07-10 Iram Payne [facility] ity of 16:06:[address] [facility] BLOOD CULTURE SCREEN 2022-07-10 Lupillo Taylor of 10:59:00 [facility] PHOSPHORUS 2022-07-10 Lupillo Taylor [facility] of 10:59:00 [facility] MAGNESIUM 2022-07-10 Lupillo Taylor [facility] of 10:59:00 [facility] BASIC METABOLIC PANEL (NA, K, CL, 2022-07-10 Aaron Taylor [facility] of CO2, GLUCOSE, BUN, CREATININE, CA) 10:59:00 [facility] CBC WITH DIFF 2022-07-10 Lupillo Taylor of 10:59:00 [facility] BLOOD CULTURE SCREEN 2022-07-10 Lupillo Taylor of 10:59:00 [facility] PHOSPHORUS 2022-07-10 Lupillo Taylor [facility] of 10:59:00 [facility] MAGNESIUM 2022-07-10 Lupillo Taylor [facility] of 10:59:00 [facility] BASIC METABOLIC PANEL (NA, K, CL, 2022-07-10 Aaron Taylor [facility] of CO2, GLUCOSE, BUN, CREATININE, CA) 10:59:00 [facility] CBC WITH DIFF 2022-07-10 Lupillo Taylor [facility] of 10:59:00 [facility] CT ABDOMEN PELVIS WO CONTRAST 2022-07-10 Lupillo Taylor iversity of 09:25:[address] [facility] CT ABDOMEN PELVIS WO CONTRAST 2022-07-10 Dimasherin Lupillo Holbrook iversity of 09:25:28 [facility] COVID-19 (ID NOW RAPID TESTING) 2022-07-10 Iram Payne of 01:12:[address] [facility] COVID-19 (ID NOW RAPID TESTING) 2022-07-10 Iram Payne of 01:12:[address] [facility] LAB ONLY COVID INTERPRETATION 2022-07-10 Iram Payne U niversity of 01:12:[address] [facility] LACTIC ACID WHOLE BLOOD 2022-07-10 Iram Payne [facility] ity of 00:14:[address] [facility] LACTIC ACID WHOLE BLOOD 2022-07-10 Iram Payne [facility] ity of 00:14:[address] [facility] LIPASE 2022-07-10 Iram Payne [facility] of 00:10:[address] [facility] MAGNESIUM 2022-07-10 Iram Payne [facility] of 00:10:00 [facility] COMP. METABOLIC PANEL ([id number]) 2022-07-10 Iram Payne niversity of 00:10:00 [facility] CBC WITH DIFF 2022-07-10 Iram Payne [facility] of 00:10:[address] [facility] LIPASE 2022-07-10 Iram Payne [facility] of 00:10:00 J [facility] MAGNESIUM 2022-07-10 Iram Payne [facility] of 00:10:[address] [facility] COMP. METABOLIC PANEL ([id number]) 2022-07-10 Iram Payne niversity of 00:10:[address] [facility] CBC WITH DIFF 2022-07-10 Iram Payne [facility] of 00:10:00 [facility] NOTICE OF PRIVACY PRACTICES 2022-07-09 Doctor [facility] ersity of 23:38:54 Unassigned, No [facility] Name Branch NOTICE OF PRIVACY PRACTICES 2022-07-09 Doctor [facility] ersity of 23:38:54 Unassigned, No [facility] CONSENT/REFUSAL FOR DIAGNOSIS AND 2022-07-09 Doctor [facility] of TREATMENT 23:37:03 Unassigned, No [facility] CONSENT/REFUSAL FOR DIAGNOSIS AND 2022-07-09 [facility] of TREATMENT 23:37:03 Unassigned, No [facility] COMP. METABOLIC PANEL ([id number]) 2022-05-27 [facility] of 00:31:00 [facility] CBC WITH DIFF 2022-05-27 Janene Taylor [facility] 00:31:00 [facility] CONSENT/REFUSAL FOR DIAGNOSIS AND 2022-05-26 [facility] 23:52:11 Unassigned, [facility] XR KUB 2022-05-01 [facility] of 15:57:16 [facility] BASIC METABOLIC PANEL (NA, K, CL, 2022-04-29 [place], [facility] of CO2, GLUCOSE, BUN, CREATININE, CA) 09:55:00 [facility] BASIC METABOLIC PANEL (NA, K, CL, 2022-04-29 [facility], [facility] of CO2, GLUCOSE, BUN, CREATININE, CA) 09:55:00 [facility] CBC WITHOUT DIFF 2022-04-28 [facility] 17:04:00 [facility] CBC WITHOUT DIFF 2022-04-28 [facility] 17:04:00 [facility] CBC WITHOUT DIFF 2022-04-28 [facility] 17:04:00 [facility] MAGNESIUM 2022-04-28 [facility] 17:03:00 [facility] BASIC METABOLIC PANEL (NA, K, CL, 2022-04-28 [facility], [facility] of CO2, GLUCOSE, BUN, CREATININE, CA) 17:03:00 [facility] BASIC METABOLIC PANEL (NA, K, CL, 2022-04-28 [facility], [facility] of CO2, GLUCOSE, BUN, CREATININE, CA) 17:03:00 [facility] MAGNESIUM 2022-04-28 [facility] 17:03:00 [facility] BASIC METABOLIC PANEL (NA, K, CL, 2022-04-28 [facility], [facility] of CO2, GLUCOSE, BUN, CREATININE, CA) 17:03:00 [facility] INTUBATION 2022-04-28 [facility] of 14:47:00 [facility] ESOPHAGOGASTRODUODENOSCOPY 2022-04-28 E[facility] ersity of 14:27:[address] [facility] ESOPHAGOGASTRODUODENOSCOPY 2022-04-28 E[facility] ersity of 14:27:00 [facility] EGD (ENDO) 2022-04-28 [facility] of 14:21:27 [facility] EGD (ENDO) 2022-04-28 [facility] of 14:21:27 [facility] POTASSIUM SERUM 2022-04-27 [facility] of 22:05:00 [facility] BASIC METABOLIC PANEL (NA, K, CL, 2022-04-27 [facility], [facility] of CO2, GLUCOSE, BUN, CREATININE, CA) 22:05:00 [facility] POTASSIUM SERUM 2022-04-27 [facility] of 22:05:00 [facility] BASIC METABOLIC PANEL (NA, K, CL, 2022-04-27 [facility], [facility] of CO2, GLUCOSE, BUN, CREATININE, CA) 22:05:00 [facility] POTASSIUM SERUM 2022-04-27 [facility] of 22:05:00 [facility] BASIC METABOLIC PANEL (NA, K, CL, 2022-04-27 [facility], [facility] of CO2, GLUCOSE, BUN, CREATININE, CA) 22:05:00 [facility] BASIC METABOLIC PANEL (NA, K, CL, 2022-04-27 Sanchez, [facility] of CO2, GLUCOSE, BUN, CREATININE, CA) 15:10:00 [facility] BASIC METABOLIC PANEL (NA, K, CL, 2022-04-27 Sanchez, [facility] of CO2, GLUCOSE, BUN, CREATININE, CA) 15:10:00 [facility] BASIC METABOLIC PANEL (NA, K, CL, 2022-04-27 [facility], [facility] of CO2, GLUCOSE, BUN, CREATININE, CA) 15:10:00 [facility] COVID-19 (ID NOW RAPID TESTING) 2022-04-27 Charlotte Miranda [facility] of 00:04:00 [facility] LAB ONLY COVID INTERPRETATION 2022-04-27 Charlotte Miranda Un iversity of 00:04:00 [facility] COVID-19 (ID NOW RAPID TESTING) 2022-04-27 Charlotte Mrianda [facility] of 00:04:00 [facility] LAB ONLY COVID INTERPRETATION 2022-04-27 Charlotte Miranda Un iversity of 00:04:00 [facility] COVID-19 (ID NOW RAPID TESTING) 2022-04-27 Charlotte Miranda of 00:04:00 [facility] LAB ONLY COVID INTERPRETATION 2022-04-27 Charlotte Miranda Un iversity of 00:04:00 [facility] CT THORAX W CONTRAST 2022-04-26 Charlotte Miranda [facility] of 23:01:53 [facility] CT THORAX W CONTRAST 2022-04-26 Charlotte Miranda [facility] of 23:01:53 [facility] CT THORAX W CONTRAST 2022-04-26 Ruth, [facility] of 23:01:53 [facility] LIPASE 2022-04-26 Roberto MirandaMinnie [facility] of 22:45:00 [facility] MAGNESIUM 2022-04-26 Maryjane [facility] of 22:45:00 [facility] TROPONIN I 2022-04-26 AlbertgaRoberto coxMinnie [facility] of 22:45:00 [facility] COMP. METABOLIC PANEL ([id number]) 2022-04-26 Charlotte Miranda Un iversity of 22:45:00 [facility] CBC WITH DIFF 2022-04-26 Roberto MirandaMinnie [facility] of 22:45:00 [facility] N-TERMINAL PRO-BNP 2022-04-26 AlbertgaRoberto coxMinnie [facility] of 22:45:00 [facility] CBC WITH DIFF 2022-04-26 AlbertgaRoberto coxMinnie [facility] of 22:45:00 [facility] TROPONIN I 2022-04-26 Roberto MirandaMinnie [facility] of 22:45:00 [facility] N-TERMINAL PRO-BNP 2022-04-26 Roberto MirandaMinnie [facility] of 22:45:00 [facility] LIPASE 2022-04-26 Ruth [facility] of 22:45:00 [facility] COMP. METABOLIC PANEL ([id number]) 2022-04-26 Charlotte Miranda Un iversity of 22:45:00 [facility] MAGNESIUM 2022-04-26 Maryjane [facility] of 22:45:00 [facility] LIPASE 2022-04-26 Roberto MirandaMinnie [facility] of 22:45:00 [facility] MAGNESIUM 2022-04-26 Maryjane [facility] of 22:45:00 [facility] TROPONIN I 2022-04-26 Charlotte Miranda [facility] of 22:45:00 [facility] COMP. METABOLIC PANEL ([id number]) 2022-04-26 Charlotte Miranda Un [facility]versity of 22:45:00 [facility] CBC WITH DIFF 2022-04-26 [facility] of [facility]:45[facility]00 [facility] N-TERMINAL PRO-BNP 2022-04-26 [facility] of 22:45:00 [facility] HB ECG ROUTINE & RHYTHM STRIP 2022-04-26 Charlotte Miranda [facility] of 22:15:20 [facility] HB ECG ROUTINE & RHYTHM STRIP 2022-04-26 Charlotte Miranda [facility] of 22:15:20 [facility] HB ECG ROUTINE & RHYTHM STRIP 2022-04-26 Charlotte Miranda iversity of 22:15:20 [facility] XR CHEST 1 VW 2022-04-26 [facility] of 21:18:17 [facility] XR CHEST 1 2022-04-26 [facility] of 21:18:17 [facility] XR CHEST 1 2022-04-26 [facility] of 21:18:17 [facility] CONSENT/REFUSAL FOR DIAGNOSIS AND 2022-04-26 [facility] 20:55:28 [facility]SENT[facility]REFUSAL FOR DIAGNOSIS AND 2022-04-26 [facility] 20:55:28 Unassigned, No [facility] CONSENT/REFUSAL FOR DIAGNOSIS AND 2022-04-26 [facility] 20:55:28 Unassigned, No [facility] SURGICAL PATHOLOGY EXAM 2022-03-12 Negrito Shaver ty of 15:50:00 [facility] INTUBATION 2022-03-12 Юлия Sutton of 14:53:[address] [facility] INGUINAL HERNIORRHAPHY 2022-03-12 Ne[facility]ito [facility]aver [facility] of 14:34:00 [facility] OPEN APPENDECTOMY 2022-03-12 Negrito Shaver of 14:34:00 [facility] DAY SURGERY - [facility] 2022-03-12 Doctor [facility] of 05:01:00 Unassigned, No [facility] CONSENT/REFUSAL FOR DIAGNOSIS AND 2022-03-09 Doctor [facility] of TREATMENT 20:29:26 Unassigned, No [facility] ASSIGNMENT OF BENEFITS 2022-03-09 Doctor [facility] of 20:29:06 Unassigned, No [facility] COVID-19 (ID NOW RAPID TESTING) 2022-03-09 Negrito Shaver [facility] of 20:27:00 [facility] LAB ONLY COVID INTERPRETATION 2022-03-09 Negrito Shaver Un [facility] of 20:27:00 [facility] NOTICE OF PRIVACY PRACTICES 2022-03-09 Doctor [facility] ersity of 20:22:10 Unassigned, No [facility] CONSENT/REFUSAL FOR DIAGNOSIS AND 2022-03-09 Doctor [facility] of TREATMENT 20:21:53 Unassigned, No [facility] ASSIGNMENT OF BENEFITS 2022-03-09 Doctor [facility] y of 20:21:32 Unassigned, No [facility] DISCLOSURE AND CONSENT, MEDICAL 2022-03-05 [facility] of AND SURGICAL PROCEDURES 05:01:00 Unassigned, No [facility] dical Name Branch INTUBATION 2022-02-25 Puma Sandy [facility] of 17:01:00 [facility] HB ABO GROUPING 2022-02-25 Stephanie Galvez [facility] of 15:52:00 [facility] CONSENT/REFUSAL FOR DIAGNOSIS AND 2022-02-25 Doctor [facility] of TREATMENT 13:23:24 Unassigned, No [facility] COVID-19 (ID NOW RAPID TESTING) 2022-02-25 Zander Howe of 13:18:00 [facility] LAB ONLY COVID INTERPRETATION 2022-02-25 Zander Howe Un i[facility]ity of 13:18:00 [place] [facility] ASSIGNMENT OF BENEFITS 2022-02-25 Doctor [facility] of 13:04:20 Unassigned, No [facility] - [place] 2022-02-25 Doctor [facility] of 05:01:00 Unassigned, No [facility] REFERRAL- REQUEST/RESPONSE 2022-02-18 Doctor [facility] rsity of 05:01:00 Unassigned, No [facility] XR CHEST 2 VW 2022-02-04 Liv Boucher [facility] of 20:28:00 [facility] CBC WITH DIFF 2022-02-04 [facility]00 [facility] BASIC METABOLIC PANEL (NA, K, CL, 2022-02-04 [facility] CO2, GLUCOSE, BUN, CREATININE, CA) 20:11:00 [facility] HEPATIC FUNCTION PANEL (28943) 2022-02-04 Liv Boucher niversity of (ALB,T.PRO,BILI 20:11:00 [facility],BU/BC,ALT,AST,ALK PHOS) Branch PREALBUMIN, SERUM 2022-02-04 [facility] Plan of Care Planned Activity Planned [...] Future Scheduled Test 2022-07-24 00:00:00 IMM Influenza [facility] Seasonal (>/= 19 yrs) [code = IMM Influenza Seasonal (>/= 19 yrs)] Future Scheduled Test 2022-07-24 00:00:00 IMM Influenza [facility] Seasonal (>/= 19 yrs) [code = IMM Influenza Seasonal (>/= 19 yrs)] Future Scheduled Test 2022-07-24 00:00:00 IMM Influenza [facility] Seasonal (>/= 19 yrs) [code = IMM Influenza Seasonal (>/= 19 yrs)] Future Scheduled Test 2021-07-24 00:00:00 IMM Influenza [facility] Seasonal Oct to December (>/= 19 yrs) [code = IMM Influenza Seasonal Oct to December (>/= 19 yrs)] Future Scheduled Test 1996 00:00:00 COVID-19 Vaccine (1) [facility] [code = COVID-19 Vaccine (1)] Future Scheduled Test 1984 00:00:00 COVID-19 Vaccine (#1) [facility] [code = COVID-19 Vaccine (#1)] Future Scheduled Test 1984 00:00:00 COVID-19 Vaccine (#1) [facility] [code = COVID-19 Vaccine (#1)] Future Scheduled Test 1984 00:00:00 COVID-19 Vaccine (#1) [facility] [code = COVID-19 Vaccine (#1)] Future Scheduled Test 1984 00:00:00 COVID-19 Vaccine (#1) [facility] [code = COVID-19 Vaccine (#1)] Future Scheduled Test 1984 00:00:00 COVID-19 Vaccine (#1) [facility] [code = COVID-19 Vaccine (#1)] Future Scheduled Test 1984 00:00:00 COVID-19 Vaccine (#1) [facility] [code = COVID-19 Vaccine (#1)] Future Scheduled Test 1984 00:00:00 COVID-19 Vaccine (#1) [facility] [code = COVID-19 Vaccine (#1)] Future Scheduled Test 1984 00:00:00 COVID-19 Vaccine (#1) [facility] [code = COVID-19 Vaccine (#1)] Future Scheduled Test 1984 00:00:00 COVID-19 Vaccine (#1) [facility] [code = COVID-19 Vaccine (#1)] Future Scheduled Test 1984 00:00:00 COVID-19 Vaccine (#1) [facility] [code = COVID-19 Vaccine (#1)] Future Scheduled Test 1984 00:00:00 COVID-19 Vaccine (#1) [facility] [code = COVID-19 Vaccine (#1)] Future Scheduled Test 1984 00:00:00 Fluoride Varnish [facility] [code = Fluoride Varnish] Future Scheduled Test 1984 00:00:00 Fluoride Varnish [facility] [code = Fluoride Varnish] Future Scheduled Test 1984 00:00:00 Fluoride Varnish [facility] [code = Fluoride Varnish] Future Scheduled Test 1984 00:00:00 Fluoride Varnish [facility] [code = Fluoride Varnish] Future Scheduled Test 1984 00:00:00 Fluoride Varnish [facility] [code = Fluoride Varnish] Future Scheduled Test 1984 00:00:00 Fluoride Varnish [facility] [code = Fluoride Varnish] Future Scheduled Test 1984 00:00:00 Fluoride Varnish [facility] [code = Fluoride Varnish] Future Scheduled Test 1984 00:00:00 Fluoride Varnish [facility] [code = Fluoride Varnish] Encounters Start End Encounter Admission Attending Care Care Encounter Source Date/Time Date/Time Type Type Clinicians Facility Department ID 2022-08-23 Outpatient R PARKER CHAN [facility] [id number] Univers 17:04:54 PARKER CHAN [facility] 2022-05-18 Outpatient [facility] [id number] [place] 14:53:18 [id number] [facility] 2022-01-18 Outpatient [facility] [id number] [place] 04:45:38 [id number] [facility] 2020-10-19 Inpatient Ryne HARPER MSLAKEISHA MAYI [id number] Univers 02:37:00 AMBAR walker [facility] 2020-10-06 Inpatient HCAPM JOSE [id number] [facility] 00:50:00 11 [facility] 2023-02-08 2023-02-08 Outpatient R [facility] [id number] Univers 09:00:00 09:00:[address] [facility] 2022-08-26 2022-08-26 Transition SHARON Araujo 1.2.840.114 [id number] Univers 00:00:00 00:00:00 of Care Henrietta PETERSONY 350.1.13.10 [place] [id number] [facility] 403 Branch 2022-08-23 2022-08-25 Hospital Brett Hamilton [facility] 1.2.840.11 [id number] Univers 18:36:00 14:05:00 Encounter Nupur Sandoval HEALTH 350.1.13.10 ity of Adis Dillon 4.2.7.2.686 [facility] [id number] [facility] 110 Branch (CLC) 2022-08-23 2022-08-23 Corporate Travel Agent [facility] UNIVERSIT 1.2.840.114 [id number] Univers 15:15:00 15:30:00 Visit Parker Chan HEALTH 350.1.13.10 it[place] [id number] [facility] 316 Branch 2022-08-23 2022-08-23 Office LISSETH Chan 1.2.909.673 [id number] Univers 14:00:00 14:30:00 Visit Parker HEALTH 350.1.13.10 i ty [place] [id number] [facility] 185 Branch 2022-08-23 2022-08-23 Outpatient R PARKER CHAN [facility] 1 [id number] Univers 14:00:00 14:00:00 PARKER CHAN jared [facility] 2022-08-23 2022-08-23 Outpatient R PARKER CHAN [facility] 1 [id number] Univers 14:00:00 14:00:00 PARKER CHAN jared [facility] 2022-08-23 2022-08-23 Prep For Mitchell, UNIVERSIT 1.2.840.114 [id number] Univers 00:00:00 00:00:00 Surgery Mitzy HEALTH 350.1.13.10 i ty [place] [id number] [facility] 185 Branch 2022-08-10 2022-08-10 Office Genie Laureano UNIVERSI T 1.2.840.114 [id number] Univers 09:00:00 09:30:00 Visit CristhianDariel guo Holland Myrick [facility] 350.1.13. 10 it[place] [id number] [facility] 071 Branch 2022-08-10 2022-08-10 [facility] [id number] Univers 09:00:00 09:00:00 DARIEL [facility] 2022-07-09 2022-07-20 Inpatient X [facility] [id number] Univers 18:43:00 16:45:00 JORDEN [facility] 2022-07-09 2022-07-20 Hospital Iram Payne [facility] 1.2.84 0.114 [id number] Univers 18:43:00 16:45:00 Encounter Lupillo Taylor 350.1.13.10 ity of Zachary Li 4.2.7.2.686 [facility] [id number] [address] 2022-07-12 2022-07-12 Outpatient R [facility] [id number] Univers 13:30:00 13:30:[address] [facility] 2022-07-11 2022-07-11 Surgery [facility] 1.2.840.114 [id number] Univers 13:00:00 21:28:00 German BRIONES 350.1.13.10 i ty [place] SURGICAL [id number] [facility] 020 Branch 2022-06-04 2022-06-04 Telephone YARELI Capps 1.2.840.114 [id number] Univers 00:00:00 00:00:[address] [facility] 350.1.13.10 it[place] CL[place] [id number] [facility] 071 Branch 2022-05-26 2022-05-26 Emergency X ISAEL [facility] ERT [id number] Univers 19:02:00 22:40:[address] [facility] 2022-05-26 2022-05-26 Emergency Janene Taylor [facility] 1.2.840. 114 [id number] Univers 19:02:00 22:40:00 Cindy Akins JEFFERSON 350.1.13.10 ity of JB 4.2.7.2.686 [facility] [id number] [facility] 084 Branch 2022-05-05 2022-05-05 Transition SHARON Araujo 1.2.840.114 [id number] Univers 00:00:00 00:00:00 of Care Henrietta WILSON 350.1.13.10 ity of [place] 4.2.7.2.686 [facility] [id number] [facility] 403 Branch 2022-04-26 2022-05-04 Inpatient X AMELIE ALMEIDA [facility] [id number] Univers 16:01:00 12:18:[address] ity of [facility] 2022-04-26 2022-05-04 [facility] AlbertconcepcionkennyCharlotte [facility] 1.2.840.11 [id number] Univers 16:01:00 12:18:00 [facility] 350.1. 13.10 ity of [place] 4.2.7.2.686 [facility] ole[facility] [id number] [address] ([facility]) 2022-04-28 2022-04-28 Anesthesia Gayle Lino 1.2.840.1 1 [id number] Univers 09:38:00 10:28:00 Event Radu Schroeder 66681.1.1 ity of 3.104.2.7 [place] .3.606373 Medica l .8 Branch 2022-04-28 2022-04-28 Surgery Eber [facility] 1.2.840.114 [id number] Univers 09:30:00 10:01:00 Derrell K SPECIALTY 350.1.13.10 it[place] C[place] C[place] AT [id number] Ut dical VICTORY 020 [facility] 2022-04-27 2022-04-27 Anesthesia Fawn Johnson 1.2.840.1 [id number] Univers 12:29:50 12:29:50 Event Sabrina Sanchez 07186.1.1 ity of 3.104.2.7 [place] .3.205033 Medica l .8 [place] 2022-04-26 2022-04-26 Travel 1.2.840.1 1.2.183.785 [id number] Univers 00:00:00 00:00:00 07931.1.1 350.1.13.10 ity of 3.104.2.7 4.[place].7.3.698 [place] .3.209288 084.8 Medica l .8 [place] 2022-04-05 2022-04-05 Telephone Catopal, 1.2.840.1 [id number] Univers 00:00:00 00:00:00 Mitzy 88201.1.1 ity of 3.104.2.7 [place] .3.877533 Medica l .8 [place] 2022-04-02 2022-04-02 Office Sivakumar [facility] 1.2.840.114 [id number] Univers 11:45:00 11:45:00 Visit Negrito BRIONES 350.1.13.10 i ty of [place] 4.2.7.2.[place] PROFESS[place] [id number] Ut dical NAL 188 [facility] 2022-04-02 2022-04-02 Office Sivakumar, 1.2.840.8 [id number] Univers 11:45:00 11:45:00 Visit Negrito 33126.1.1 ity of [place] 3.104.2.7 [place] .3.744710 Medica l .8 [place] 2022-04-02 2022-04-02 Outpatient R SIVAKUMAR [facility] [id number] Univers 11:45:00 11:33:[address] [facility] 2022-04-02 2022-04-02 Travel 1.2.840.1 1.2.220.131 [id number] Univers 00:00:00 00:00:00 27818.1.1 350.1.13.10 ity of 3.104.2.7 4.2.7.3.698 [place] .3.812887 084.8 Medica l .8 [place] 2022-03-24 2022-03-24 Telephone Zander Howe UNIVERSIT 1.2.840.114 [id number] Univers 00:00:00 00:00:00 Y HEALTH 350.1.13.10 i ty of [facility] 4.2.7.2.[place] [id number] [facility] 185 [place] 2022-03-24 2022-03-24 Telephone Zander Howe 1.2.840.8 [id number] Univers 00:00:00 00:00:00 87882.1.1 ity of 3.104.2.7 [place] .3.637179 Medica l .8 [place] 2022-03-19 2022-03-19 Gretta Kamlesh Zander MAHAN 1.2.840.114 [id number] Univers 00:00:00 00:00:00 NAMRATA 350.1.13.10 it y of [facility] 4.2.7.2.686 [place] [id number] [facility] 037 [place] 2022-03-19 2022-03-19 Telephone Kamlesh Zander 1.2.840.7 [id number] Univers 00:00:00 00:00:00 73140.1.1 ity of 3.104.2.7 [place] .3.232645 Medica l .8 [place] 2022-03-12 2022-03-12 Outpatient Lisa SHAVER [facility] STEPHANIE [id number] Univers 08:13:00 16:20:[address] [facility] 2022-03-12 2022-03-12 Alfredo Shaver [facility] 1.2.840.114 [id number] Univers 08:13:00 16:20:00 Encounter Negrito BRIONES 350.1.13.10 ity of [place] 4.2.7.2.[place] SURGICAL [id number] [facility] ical CENTER 071 [place] 2022-03-12 2022-03-12 Hospital Sivakumar, 1.2.840.0 [id number] Univers 08:13:00 16:20:00 Encounter Negrito 95201.1.1 it y of [place] 3.104.2.7 [place] .3.742780 Medica l .8 Branch 2022-03-12 2022-03-12 Anesthesia Carley Fregoso 1.2.840.1 [id number] Univers 09:44:00 12:14:00 Event Richard Granados 98757.1.1 ity of 3.104.2.7 [place] .3.007296 Medica l .8 Branch 2022-03-12 2022-03-12 Surgery Sivakumar, [facility] 1.2.840.114 [id number] Univers 09:54:00 12:12:00 Negrito BRIONES 350.1.13.10 i ty of [place] 4.2.7.2.686 [facility] [id number] [facility] ical CENTER 020 [place] 2022-03-12 2022-03-12 Surgery Sivakumar, 1.2.840.2 [id number] Univers 09:54:00 12:12:00 Negrito 41854.1.1 ity of [place] 3.104.2.7 [place] .3.089634 Medica l .8 [place] 2022-03-09 2022-03-09 Laboratory Only, Adc Test [facility] 1.2.840. 114 [id number] Univers 10:15:00 10:30:00 Only Negrito Shaver 350.1.13 .10 [place] [id number] [facility] 353 Branch 2022-03-09 2022-03-09 Laboratory Sivakumar Negrito [place] 1.2.840.3 [id number] Univers 10:15:00 10:30:00 Only Only, Adc Test 04641.1.1 ity of 3.104.2.7 [place] .3.908455 Medica l .8 Branch 2022-03-09 2022-03-09 Outpatient Lisa SIVAKUMAR, [facility] [id number] Univers 10:15:00 10:15:00 NEGRITO walker [facility] 2022-03-09 2022-03-09 Travel 1.2.840.1 1.2.012.601 [id number] Univers 00:00:00 00:00:00 47480.1.1 350.1.13.10 ity of 3.104.2.7 4.2.7.3.698 [place] .3.475853 084.8 Medica l .8 [place] 2022-03-05 2022-03-05 Outpatient Lisa SHAVER [facility] [id number] Univers 10:15:00 12:01:28 NEGRITO walker [facility] 2022-03-05 2022-03-05 [facility] 1.2.840.114 [id number] Univers 10:15:00 12:01:28 Visit Negrito ANALI 350.1.13.10 i ty of [place].2.[place] PROFESS[place] [id number] Ut dical NAL 188 [facility] 2022-03-05 2022-03-05 [facility] [id number] Univers 10:15:00 12:01:28 NEGRITO walker [facility] 2022-03-05 2022-03-05 Office Sivakumar, 1.2.840.1 [id number] Univers 10:15:00 12:01:28 Visit Negrito 16169.1.1 ity of [place] 3.104.2.7 [place] .3.030452 Medica l .8 [place] 2022-03-05 2022-03-05 [facility]patient [facility] [id number] Univers 10:15:00 10:15:00 NEGRITO walker [facility] 2022-02-25 2022-02-25 Outpatient ZANDER CONTRERAS [facility] SCT [id number] Univers 08:04:00 13:21:00 ity [facility] 2022-02-25 2022-02-25 Zander Phelan 1.2.840.114 [id number] Univers 08:04:00 13:21:00 Encounter NAMRATA 350.1.13.10 ity of HOSPITAL 4.2.7.2.686 [place] [id number] [facility] 104 [place] 2022-02-25 2022-02-25 Hospital [facility] 1.2.840.8 [id number] Univers 08:04:00 13:21:00 Encounter 46208.1.1 it y of 3.104.2.7 [place] .3.817588 Medica l .8 Branch 2022-02-25 2022-02-25 Surgery [facility] ANGIE 1.2.900.431 [id number] Univers 09:35:00 12:45:00 NAMRATA 350.1.13.10 it y of HOSPITAL 4.2.7.2.686 [place] [id number] [facility] 103 Branch 2022-02-25 2022-02-25 Surgery [facility] 1.2.840.6 [id number] Univers 09:35:00 12:45:00 97615.1.1 ity of 3.104.2.7 [place] .3.819417 Medica l .8 Branch 2022-02-25 2022-02-25 Anesthesia Yung Arita 1.2.840.9 [id number] Univers 11:53:00 12:33:00 Event Francis Wong 69612.1.1 ity of 3.104.2.7 [place] .3.021234 Medica l .8 Branch 2022-02-24 2022-02-24 Travel 1.2.840.1 1.2.471.346 [id number] Univers 00:00:00 00:00:00 98477.1.1 350.1.13.10 ity of 3.104.2.7 4.2.7.3.698 [place] .3.509957 084.8 Medica l .8 [place] 2022-02-18 2022-02-18 Orders Doctor NEGRITO 1.2.840.114 [id number] Univers 00:00:00 00:00:00 Only Unassigned, NAMRATA 350.1.13.10 ity of [place] [facility] 4.2.7.2.686 [place] as [id number] [facility] 009 Branch 2022-02-18 2022-02-18 Orders Doctor 1.2.840.6 [id number] Univers 00:00:00 00:00:00 Only Unassigned, 02166.1.1 ity of [place] 3.104.2.7 [place] .3.624770 Medica l .8 [place] 2022-02-15 2022-02-15 [facility] NEGRITO 1.2.492.282 [id number] Univers 00:00:00 00:00:00 Stephanie Rose NAMRATA 350.1.13.10 ity of HOSPITAL 4.2.7.2.686 [place] [id number] [facility] 037 [place] 2022-02-15 2022-02-15 [place] 79927.2.840.2 [id number] Univers 00:00:00 00:00:00 Stephanie Rose 72831.1.1 it y of 3.104.2.[address] [place] [address] [facility] [place] 2022-02-09 2022-02-09 [facility] NEGRITO 1.2.244.896 [id number] Univers 00:00:00 00:00:00 Stephanie Rose NAMRATA 350.1.13.10 ity of HOSPITAL 4.2.7.2.686 [place] [id number] [facility] 037 [place] 2022-02-09 2022-02-09 [place] 799[address].2.840.9 [id number] Univers 00:00:00 00:00:00 Stephanie Rose 33989.1.1 it y of 3.104.2.7 [place] .3.564408 Medica l .8 [place] 2022-02-08 2022-02-08 Case [facility] NEGRITO 1.2.840.114 [id number] Univers 00:00:00 00:00:00 Management Stephanie Rose NAMRATA 350.1.13.10 ity of HOSPITAL 4.2.7.2.686 [place] [id number] [facility] 037 [place] 2022-02-082022-02-08 Case Lenny, 1.2.840.8 [id number] Univers 00:00:00 00:00:00 Management Stephanie Rose 91418.1.1 ity of 3.104.2.7 [place] .3.906565 Medica l .8 Branch 2022-02-04 2022-02-04 Hospital Zander Howe UNIVERSIT 1.2.840.114 [id number] Univers 15:17:56 23:59:00 Encounter Y HEALTH 350.1.13.10 ity of CLIN[place] 4[place] [id number] [facility] 807 Branch 2022-02-04 2022-02-04 [facility] Zander Howe 1.2.840.0 [id number] Univers 15:17:56 23:59:00 Encounter 84584.1.1 it y of 3.104.2.7 [place] .3.645296 Medica l .8 [place] 2022-02-04 2022-02-04 Corporate Travel Agent Kamlesh Zander 1.2.840.5 [id number] Univers 15:30:00 15:47:42 Visit [facility] 73574.1.1 ity of 3.104.2.7 [place] .3.681828 Medica l .8 [place] 2022-02-04 2022-02-04 Corporate Travel Agent [facility] UNIVERSIT 1.2.840.114 [id number] Univers 15:30:00 15:45:00 Visit Zander Howe Y HEALTH 350.1.13.10 ity of CLINICS 4[place] [id number] [facility] 316 Branch 2022-02-04 2022-02-04 Outpatient R ZANDER HOWE [facility] [id number] Univers 13:30:00 14:38:[address] [facility] 2022-02-04 2022-02-04 Office Zander Howe UNIVERSIT 1.2.840.114 [id number] Univers 13:30:00 14:38:59 Visit Y HEALTH 350.1.13.10 i ty of CLINICS 4[place] [id number] [facility] 185 Branch 2022-02-04 2022-02-04 Outpatient R ZANDER HOWE [facility] [id number] Univers 13:30:00 14:38:[address] [facility] 2022-02-04 2022-02-04 Office Zander Howe 1.2.840.3 [id number] Univers 13:30:00 14:38:59 Visit 15525.1.1 ity of 3.104.2.7 [place] .3.532086 Medica l .8 [place] 2022-02-04 2022-02-04 Travel 1.2.840.1 [id number] [id number] Univers 00:00:00 00:00:00 52402.1.1 350.1.13.10 ity of 3.104.2.[place].3.698 [place]3.703572 084.8 Medica l .8 [place] 2022-01-14 2022-01-14 Outpatient ZANDER CONTRERAS [facility] [id number] Univers 14:45:00 14:45:[address] [facility] 2021-12-31 2021-12-31 Outpatient ZANDER CONTRERAS [facility] [id number] Univers 15:45:00 15:45:[address] [facility] 2021-12-17 2021-12-17 Outpatient ZANDER CONTRERAS [facility] [id number] Univers 14:30:00 14:30:[address] [facility] 2021-11-14 2021-11-15 Outpatient X RABIA [facility] [id number] Univers 17:45:00 18:29:[address] [facility] 2021-11-14 2021-11-15 [facility] Nilo Guillaume [facility] 1.2.8 [id number] [id number] Univers 17:45:00 18:29:00 [facility] 350.1.13.10 [place]7.2.686 [place] [facility] [id number] [facility] [address] [place] 2021-11-14 2021-11-15 [facility] [id number] Univers 17:45:00 18:29:00 ADNAN ity [facility] 2021-11-12 2021-11-12 Outpatient R ZANDER HOWE [facility] [id number] Univers 14:15:00 14:19:16 ity [facility] 2021-11-12 2021-11-12 Office Zander Howe UNIVERSIT 1.2.840.114 [id number] Univers 14:15:00 14:19:16 Visit HEALTH 350.1.13.10 i ty [place] [id number] [facility] [address] [place] 2021-11-12 2021-11-12 Outpatient R ZANDER HOWE [facility] [id number] Univers 14:15:00 14[facility]19[facility] 2021-11-02 2021-11-02 Emergency X [facility] ERT [id number] Univers 14:12:00 17:29:00 HARVEY [facility] 2021-11-02 2021-11-02 Emergency [facility] [id number] Univers 14:12:00 17:29:00 Harvey BRIONES 350.1.13.10 i [place] [id number] [facility] [address] [place] 2021-09-22 2021-09-22 Imm/Inj Vaccine, [facility] 1.2.840.114 [id number] Univers 12:00:25 12:10:25 Visit Thai Arita SPECIALTY 350.1.13.10 [place] [phone] Ut stephanie ELGINJared [address] [place] [address] 2021-09-22 2021-09-22 Office [facility] 1.2.840.114 [id number] Univers 10:00:00 10:30:00 Visit Tyrone SPECIALTY 350.1.13.10 ity of [facility] CARE 4.2.7.2.686 [place] as CENTER AT [id number] Ut stephanie [place] [address] [place] [address] 2021-09-22 2021-09-22 Outpatient R NEGRITO [facility] [id number] Univers 10:00:00 10:00:00 TYRONE [facility] 2021-09-22 2021-09-22 Orders Doctor MAHAN 1.2.840.114 [id number] Univers 00:00:00 00:00:00 Only UnassignedNAMRATA 350.1.13.10 ity of [place] [facility] 4.2.7.2.686 [place] as [id number] [address] 2021-06-19 2021-06-19 Orders Doctor AMHAN 1.2.840.114 [id number] Univers 00:00:00 00:00:00 Only UnassignedNAMRATA 350.1.13.10 ity of [place] [facility] 4.2.7.2.686 [place] as [id number] [address] 2021-05-25 2021-05-26 Emergency Janene Taylor [facility] 1.2.840.114 [id number] 18:28:00 00:07:00 Misa Briones 350.1.13.10 [place] 4.2.7.2.686 [place] [id number] 084 2021-05-25 2021-05-25 Emergency X Janene TAYLOR [facility] ERT [id number] Univers 18:28:00 18:28:00 [facility] 2020-12-19 2020-12-19 Orders Doctor MAHAN 1.2.840.114 [id number] 00:00:00 00:00:00 Only UnassignedNAMRATA 350.1.13.10 [place] [facility] 4.2.7.2.686 [id number] 2020-11-28 2020-11-28 Patient Sharon Bunn 1.2.840.114 [id number] 00:00:00 00:00:00 Outreach Micki Wilson 350.1.13.10 [place] 4.2.7.2.686 [id number] 2020-11-27 2020-11-27 Telephone Angie Aguilar 1.2.420.083 [id number] 00:00:00 00:00:00 Gianni Newman.1.13.10 [facility] 4.2.7.2.686 [id number] 093 2020-10-10 2020-10-19 Inpatient U LEROY [facility] MAYI [id number] Univers 10:35:00 00:30:00 AMBAR [facility] 2020-10-06 2020-10-06 Outpatient Jose, CHELSIECL LABO [id number] [facility] 23:33:00 23:33:[address] 2020-10-04 2020-10-04 Emergency X DA PUTNAM [facility] ERT 1 [id number] Univers 14:21:00 14:21:00 DA PUTNAM [facility] 2020-10-03 2020-10-03 Emergency X [facility] ERT [id number] Univers 21:22:00 [facility] 2020-10-[facility] 2020-10-02 Emergency X [facility] ERT [id number] Univers 16:14:00 [facility]14:[facility] 2020-09-26 2020-10-02 Inpatient X DIONE [facility] MAYI [id number] Univers 09:58:00 14:26:00 JESSICA [facility] 2020-09-20 2020-09-20 Emergency X [facility] ERT [id number] Univers 13:37:00 13:37:00 IRAM [facility] 2020-08-23 2020-08-23 Emergency X [facility] ERT [id number] Univers 17:57:00 17:57:[facility] 2020-05-02 2020-05-02 Emergency X [facility] ERT [id number] Univers 02:13:00 02:13:00 [facility] Results Test Description Test Time Test Comments Results Result Comments Source BASIC METABOLIC PANEL (NA, K, CL, CO2, GLUCOSE, BUN, 2022-08 23:25:30 CREATININE, CA) Test Item Value Reference Range Interpretation Comme nts NA (test code = 8977770626) 146 mmol/L 135-145 H K (test code = 2796813579) 3.6 mmol/L 3.5-5.0 CL (test code = 9847658146) 118 mmol/L 98-108 H CO2 TOTAL (test code = 9842903400) 25 mmol/L 23-31 AGAP (test code = 4367108345) 2-16 BUN (test code = 2663185744) 11 mg/dL 7-23 GLUCOSE (test code = 9045063249) 100 mg/dL 70-110 CREATININE (test code = 0.57 mg/dL 0.60-1.25 L 7098401128) CALCIUM (test code = 5802208657) 7.0 mg/dL 8.6-10.6 L eGFR (test code = 7448882233) mL/min/1.73m2 LU (test code = LU) Association [...] tests). Lab Interpretation (test code = Abnormal 01240-6) [facility] 16:56:15 Test Item Value Reference Range Interpretation Comments POCT GLU (test code = 4286892030) 107 mg/dL 70-110 Lab Interpretation (test code = Normal 76559-5) [facility] [id number] 10:25:25 Test Item Value Reference Range Interpretation Comments LACTIC ACID (test code = 1.12 mmol/L 0.50-2.20 9037683645) Lab Interpretation (test code = Normal 56931-5) [facility]2022-08-24 01:47:16 Test Item Value Reference Range Interpretation Comments POCT GLU (test code = 5410416473) 110 mg/dL 70-110 Lab Interpretation (test code = Normal 41250-1) [facility]2022-11-01 01:35:31 Test Item Value Reference Range Interpretation Comments PHOSPHORUS (test code = 8404353306) 4.5 mg/dL 2.5-5.0 Lab Interpretation (test code = Normal 81770-9) [facility] (NA, K, CL, CO2, GLUCOSE, BUN, CREATININE, CA)2022-08-24 00:48:44 Test Item Value Reference Range Interpretation Comments NA (test code = 144 mmol/L 135-145 5210854096) K (test code = 2.3 mmol/L 3.5-5.0 LL 7470677774) CL (test code = 105 mmol/L 98-108 5803197367) CO2 TOTAL (test code = 28 mmol/L 23-31 6885876666) AGAP (test code = 2-16 9508735539) BUN (test code = 16 mg/dL 7-23 4754797068) GLUCOSE (test code = 73 mg/dL 70-110 4464560036) CREATININE (test code = 0.73 mg/dL 0.60-1.25 4391338312) CALCIUM (test code = 7.6 mg/dL 8.6-10.6 L 7968106333) eGFR (test code = mL/min/1.73m2 4395239648) LU (test code = LU) Association of [...] tests). Lab Interpretation Abnormal (test code = 03225-0) [facility] 00:33:40 Test Item Value Reference Range Interpretation Comments MAGNESIUM (test code = 0261629361) 2.4 mg/dL 1.7-2.4 Lab Interpretation (test code = Normal 22846-9) [facility] WITH [id number] 00:21:20 Test Item Value Reference Range Interpretation Comments WBC (test code = See_Comment [Automated 4990-2) message] The sy stem which generated this result transmitted reference range : 4.20 - 10.70 10*3/?L. The reference range was not used to interpret this result as normal/abnormal . RBC (test code = See_Comment L [Automated 385-8) message] The sy stem which generated this [...] (test code = 59.5 fL 38.5-51.6 H 99263-5) RDW-CV (test code = 18.3 % 12.1-15.4 H 788-0) PLT (test code = See_Comment [Automated 777-3) message] The sy stem which generated this result transmitted reference range : 150 - 328 10*3/ ?L. The reference r alisson was not used to interpret this result as normal/abnormal . MPV (test code = 12.4 fL 9.8-13.0 38303-8) NRBC/100 WBC (test See_Comment [Automat ed code = 6103965408) message] The system which generated this result transmitted reference range : 0.0 - 10.0 /100 WBCs. The refer ence range was not u sed to interpret th is result as normal/abnormal . NRBC x10^3 (test code See_Comment [Auto mated = 2594608148) message] The s ystem which generated this result transmitted reference range : 10*3/?L. The reference range was not used to interpret this result as normal/abnormal . GRAN MAT (NEUT) % 59.6 % (test code = 770-8) IMM GRAN % (test code 0.30 % = 5014433902) LYMPH % (test code = 33.5 % 736-9) MONO % (test code = 5.8 % 5905-5) EOS % (test code = 0.4 % 713-8) BASO % (test code = 0.4 % 706-2) GRAN MAT x10^3(ANC) 4.67 10*3/uL 1.99-6.95 (test code = 4250085758) IMM GRAN x10^3 (test 0.00-0.06 code = 4230497399) LYMPH x10^3 (test code 2.62 10*3/uL 1.09-3.23 = 731-0) MONO x10^3 (test code 0.45 10*3/uL 0.36-1.02 = 742-7) EOS x10^3 (test code = 0.03 10*3/uL 0.06-0.53 L 711-2) BASO x10^3 (test code 0.03 10*3/uL 0.01-0.09 = 704-7) Lab Interpretation Abnormal (test code = 86815-9) [facility]2022-08-23 23:55:16 Test Item Value Reference Range Interpretation Comments POCT GLU (test code = 6914676208) 73 mg/dL 70-110 Lab Interpretation (test code = Normal 22079-7) [facility] MET[facility]OLIC PANEL (NA, K, CL, CO2, GLUCOSE, BUN, CREATININE, CA)2022-08-23 22:39:56 Test Item Value Reference Range Interpretation Comments NA (test code = 145 mmol/L 135-145 8013313774) K (test code = 2.3 mmol/L 3.5-5.0 LL 7443291856) CL (test code = 104 mmol/L 98-108 7400846945) CO2 TOTAL (test code = 31 mmol/L -31 2879328605) AGAP (test code = 2-16 9598210741) BUN (test code = 15 mg/dL 7-23 0589074873) GLUCOSE (test code = 38 mg/dL 70-110 LL 2726880337) CREATININE (test code = 0.69 mg/dL 0.60-1.25 6669698921) CALCIUM (test code = 7.7 mg/dL 8.6-10.6 L 1992018006) eGFR (test code = mL/min/1.73m2 5155970546) LU (test code = LU) Association of [...] tests). Lab Interpretation Abnormal (test code = 76900-0) [facility] 22:37:29 Test Item Value Reference Range Interpretation Comments PALB (test code = 68010-2) 9.3 mg/dL 18.0-45.0 L Lab Interpretation (test code = Abnormal 42018-4) [facility] (45637[facility] (ALB,T.PRO,BILI T,BU/BC,ALT,AST,ALK PHOS)2022-08-23 22:27:43 Test Item Value Reference Range Interpretation Comments TOTAL BILI (test code = 6338124942) 0.6 mg/dL 0.1-1.1 BILI UNCON (test code = 5615740621) 0.2 mg/dL 0.1-1.1 BILI CONJ (test code = 7058220395) 0.0 mg/dL 0.0-0.3 T PROTEIN (test code = 2219827522) 6.4 g/dL 6.3-8.2 ALBUMIN (test code = 8356498507) 2.8 g/dL 3.5-5.0 L ALK PHOS (test code = 5505402435) 110 U/L 34-122 ALTv (test code = 1742-6) 12 U/L 5-50 AST(SGOT) (test code = 8495546504) 24 U/L 13-40 Lab Interpretation (test code = Abnormal 95557-6) [facility] WITHOUT [id number] 21:32:56 Test Item Value Reference Range Interpretation Comments WBC (test code = 6690-2) See_Comment [A utomated message] The system Zorap generated this result transmit annette reference range : 4.20 - 10.70 10*3/?L. The reference range was not used to interpret this result as normal/abnormal . RBC (test code = 789-8) See_Comment L [Au tomated message] The system Zorap generated this result transmit annette reference range [...] 777-3) See_Comment [Au tomated message] The system Zor[employer] generated this result transmit annette reference range : 150 - 328 10*3/?L. The reference range was not used to interpret this result as normal/abnormal . MPV (test code = 12.3 fL 9.8-13.0 43528-2) RDW-CV (test code = 18.7 % 12.1-15.4 H 788-0) RDW-SD (test code = 62.3 fL 38.5-51.6 H 91006-2) NRBC x10^3 (test code = See_Comment [Au tomated message] 0709529617) The system Zorap generated this result transmit annette reference range : 10*3/?L. The reference range was not used to interpret this result as normal/abnormal . NRBC/100 WBC (test code See_Comment [Au tomated message] = 5438245177) The system Flazio generated this result transmit annette reference range : 0.0 - 10.0 /100 WBC s. The reference r alisson was not used to interpret this result as normal/abnormal . IPF % (test code = 5330055469) Lab Interpretation (test Abnormal code = 15819-2) [facility] GLUCOSE (AUTOMATED)2022-07-20 17:02:07 Test Item Value Reference Range Interpretation Comments POCT GLU (test code = 7139746467) 92 mg/dL 70-110 Lab Interpretation (test code = Normal 64447-9) [facility] GLUCOSE (AUTOMATED)2022-07-20 13:05:47 Test Item Value Reference Range Interpretation Comments POCT GLU (test code = 6217009209) 93 mg/dL 70-110 Lab Interpretation (test code = Normal 20449-0) [facility] GLUCOSE (AUTOMATED)2022-07-20 04:43:03 Test Item Value Reference Range Interpretation Comments POCT GLU (test code = 5908285391) 86 mg/dL 70-110 Lab Interpretation (test code = Normal 14850-3) [facility] GLUCOSE (AUTOMATED)2022-07-20 00:59:10 Test Item Value Reference Range Interpretation Comments POCT GLU (test code = 2732772636) 82 mg/dL 70-110 Lab Interpretation (test code = Normal 48090-3) [facility] GLUCOSE (AUTOMATED)2022-07-19 22:05:07 Test Item Value Reference Range Interpretation Comments POCT GLU (test code = 9604896820) 92 mg/dL 70-110 Lab Interpretation (test code = Normal 54435-9) [facility] GLUCOSE (AUTOMATED)2022-07-19 17:04:37 Test Item Value Reference Range Interpretation Comments POCT GLU (test code = 2612488147) 82 mg/dL 70-110 Lab Interpretation (test code = Normal 79452-0) [facility] 15:57:55 Test Item Value Reference Range Interpretation Comments PHOSPHORUS (test code = 7319490264) 1.9 mg/dL 2.5-5 L Lab Interpretation (test code = Abnormal 07187-4) [facility] WITH [id number] 14:58:38 Test Item Value Reference Range Interpretation [...] RDW-SD (test code = 50.6 fL 38.5-51.6 20399-8) RDW-CV (test code = 15.6 % 12.1-15.4 H 788-0) PLT (test code = See_Comment [Automated 777-3) message] The sy stem which generated this result transmitted reference range : 150 - 328 10*3/ ?L. The reference r alisson was not used to interpret this result as normal/abnormal . MPV (test code = 12.4 fL 9.8-13 73593-0) NRBC/100 WBC (test See_Comment [Automat ed code = 8835397923) message] The system which generated this result transmitted reference range : 0.0 - 10.0 /100 WBCs. The refer ence range was not u sed to interpret th is result as normal/abnormal . NRBC x10^3 (test code See_Comment [Auto mated = 9968925291) message] The s ystem which generated this result transmitted reference range : 10*3/?L. The reference range was not used to interpret this result as normal/abnormal . GRAN MAT (NEUT) % 51.4 % (test code = 770-8) IMM GRAN % (test code 0.30 % = 5582676354) LYMPH % (test code = 37.0 % 736-9) MONO % (test code = 9.4 % 5905-5) EOS % (test code = 1.6 % 713-8) BASO % (test code = 0.3 % 706-2) GRAN MAT x10^3(ANC) 1.96 10*3/uL 1.99-6.95 L (test code = 4317991719) IMM GRAN x10^3 (test 0-0.06 code = 2712319549) LYMPH x10^3 (test code 1.41 10*3/uL 1.09-3.23 = 731-0) MONO x10^3 (test code 0.36 10*3/uL 0.36-1.02 = 742-7) EOS x10^3 (test code = 0.06 10*3/uL 0.06-0.53 711-2) BASO x10^3 (test code 0.01-0.09 = 704-7) ELLIPTO/OVAL (test 2+ See_Comment A [Automat ed code = 83954-3) message] The system which generated this result transmitted reference range : (none). The reference range was not used to interpret this result as normal/abnormal . REACT LYMPHS (test Rare code = 6718605409) GIANT PLATELETS (test Present See_Comment A [Auto mated code = 5908-9) message] The system which generated this result transmitted reference range : (none). The reference range was not used to interpret this result as normal/abnormal . Lab Interpretation Abnormal (test code = 48453-9) [facility]22-07-19 12:58:00 Test Item Value Reference Range Interpretation Comments POCT GLU (test code = 3267780211) 93 mg/dL 70-110 Lab Interpretation (test code = Normal 54607-9) [facility] METABOLIC PANEL (NA, K, CL, CO2, GLUCOSE, BUN, CREATININE, CA)2022-07-19 11:17:35 Test Item Value Reference Range Interpretation Comments NA (test code = 136 mmol/L 135-145 8809712369) K (test code = 4.6 mmol/L 3.5-5 9779652350) CL (test code = 104 mmol/L 98-108 4554941151) CO2 TOTAL (test code = 29 mmol/L 23-31 1321349119) AGAP (test code = 2-16 1203174731) BUN (test code = 10 mg/dL 7-23 0669395895) GLUCOSE (test code = 82 mg/dL 70-110 7928864537) CREATININE (test code = 0.34 mg/dL 0.6-1.25 L 8783667839) CALCIUM (test code = 7.4 mg/dL 8.6-10.6 L 9469513711) eGFR (test code = mL/min/1.73m2 1302296804) LU (test code = LU) Association of [...] tests). Lab Interpretation Abnormal (test code = 73281-2) [facility] GLUCOSE (AUTOMATED)2022-07-19 09:13:05 Test Item Value Reference Range Interpretation Comments POCT GLU (test code = 3773266217) 94 mg/dL 70-110 Lab Interpretation (test code = Normal 67898-9) [facility] GLUCOSE (AUTOMATED)2022-07-19 06:14:35 Test Item Value Reference Range Interpretation Comments POCT GLU (test code = 2071888529) 82 mg/dL 70-110 Lab Interpretation (test code = Normal 79856-4) [facility] GLUCOSE (AUTOMATED)2022-07-19 02:01:34 Test Item Value Reference Range Interpretation Comments POCT GLU (test code = 5731188835) 90 mg/dL 70-110 Lab Interpretation (test code = Normal 79364-2) [facility] GLUCOSE (AUTOMATED)2022-07-18 21:21:09 Test Item Value Reference Range Interpretation Comments POCT GLU (test code = 1658161009) 84 mg/dL 70-110 Lab Interpretation (test code = Normal 82308-7) [facility] GLUCOSE (AUTOMATED)2022-07-18 16:34:48 Test Item Value Reference Range Interpretation Comments POCT GLU (test code = 5632712342) 79 mg/dL 70-110 Lab Interpretation (test code = Normal 58277-4) [facility] GLUCOSE (AUTOMATED)2022-07-18 13:16:05 Test Item Value Reference Range Interpretation Comments POCT GLU (test code = 7864243865) 81 mg/dL 70-110 Lab Interpretation (test code = Normal 65888-1) [facility] METABOLIC PANEL (NA, K, CL, CO2, GLUCOSE, BUN, CREATININE, CA)2022-07-18 11:18:39 Test Item Value Reference Range Interpretation Comments NA (test code = 136 mmol/L 135-145 1919166333) K (test code = 4.2 mmol/L 3.5-5 6088055575) CL (test code = 106 mmol/L 98-108 8121717285) CO2 TOTAL (test code = 31 mmol/L 23-31 5444126207) AGAP (test code = 2-16 L 5490193211) BUN (test code = 6 mg/dL 7-23 L 7787130651) GLUCOSE (test code = 87 mg/dL 70-110 0361712588) CREATININE (test code = 0.39 mg/dL 0.6-1.25 L 1266267421) CALCIUM (test code = 7.3 mg/dL 8.6-10.6 L 8307614657) eGFR (test code = mL/min/1.73m2 3090033098) LU (test code = LU) Association of [...] tests). Lab Interpretation Abnormal (test code = 15834-6) [facility] 11:17:04 Test Item Value Reference Range Interpretation Comments MAGNESIUM (test code = 1670548437) 1.5 mg/dL 1.7-2.4 L Lab Interpretation (test code = Abnormal 71712-8) [facility] 11:16:44 Test Item Value Reference Range Interpretation Comments PHOSPHORUS (test code = 3968530294) 1.8 mg/dL 2.5-5 L Lab Interpretation (test code = Abnormal 68108-7) [facility] GLUCOSE (AUTOMATED)2022-07-18 10:10:02 Test Item Value Reference Range Interpretation Comments POCT GLU (test code = 9303886782) 92 mg/dL 70-110 Lab Interpretation (test code = Normal 96990-4) [facility] GLUCOSE (AUTOMATED)2022-07-18 06:20:53 Test Item Value Reference Range Interpretation Comments POCT GLU (test code = 2752980799) 84 mg/dL 70-110 Lab Interpretation (test code = Normal 05824-9) [facility] GLUCOSE (AUTOMATED)2022-07-18 01:45:08 Test Item Value Reference Range Interpretation Comments POCT GLU (test code = 9514491468) 76 mg/dL 70-110 Lab Interpretation (test code = Normal 50703-9) [facility] GLUCOSE (AUTOMATED)2022-07-17 21:42:53 Test Item Value Reference Range Interpretation Comments POCT GLU (test code = 8300355811) 81 mg/dL 70-110 Lab Interpretation (test code = Normal 65063-4) [facility] GLUCOSE (AUTOMATED)2022-07-17 21:42:48 Test Item Value Reference Range Interpretation Comments POCT GLU (test code = 6189665325) 81 mg/dL 70-110 Lab Interpretation (test code = Normal 35629-5) [facility] GLUCOSE (AUTOMATED)2022-07-17 16:49:36 Test Item Value Reference Range Interpretation Comments POCT GLU (test code = 4821172592) 90 mg/dL 70-110 Lab Interpretation (test code = Normal 30299-4) [facility]22-07-17 13:06:55 Test Item Value Reference Range Interpretation Comments POCT GLU (test code = 4703512656) 80 mg/dL 70-110 Lab Interpretation (test code = Normal 45678-3) [facility] GLUCOSE (AUTOMATED)2022-07-17 05:27:10 Test Item Value Reference Range Interpretation Comments POCT GLU (test code = 7391091208) 84 mg/dL 70-110 Lab Interpretation (test code = Normal 36619-1) [facility] GLUCOSE (AUTOMATED)2022-07-17 01:14:31 Test Item Value Reference Range Interpretation Comments POCT GLU (test code = 2807390311) 69 mg/dL 70-110 L Lab Interpretation (test code = Abnormal 72023-1) [facility] GLUCOSE (AUTOMATED)2022-07-16 21:38:28 Test Item Value Reference Range Interpretation Comments POCT GLU (test code = 9405770842) 74 mg/dL 70-110 Lab Interpretation (test code = Normal 86166-5) [facility] GLUCOSE (AUTOMATED)2022-07-16 16:43:07 Test Item Value Reference Range Interpretation Comments POCT GLU (test code = 4285344408) 86 mg/dL 70-110 Lab Interpretation (test code = Normal 40393-6) [facility] GLUCOSE (AUTOMATED)2022-07-16 09:36:35 Test Item Value Reference Range Interpretation Comments POCT GLU (test code = 4215243435) 81 mg/dL 70-110 Lab Interpretation (test code = Normal 63269-5) [facility] GLUCOSE (AUTOMATED)2022-07-16 05:25:22 Test Item Value Reference Range Interpretation Comments POCT GLU (test code = 3252868280) 90 mg/dL 70-110 Lab Interpretation (test code = Normal 93750-8) [facility] GLUCOSE (AUTOMATED)2022-07-16 01:27:18 Test Item Value Reference Range Interpretation Comments POCT GLU (test code = 5316600743) 90 mg/dL 70-110 Lab Interpretation (test code = Normal 29623-1) [facility] GLUCOSE (AUTOMATED)2022-07-15 22:50:24 Test Item Value Reference Range Interpretation Comments POCT GLU (test code = 3711452104) 86 mg/dL 70-110 Lab Interpretation (test code = Normal 19097-6) [facility] GLUCOSE (AUTOMATED)2022-07-15 21:56:15 Test Item Value Reference Range Interpretation Comments POCT GLU (test code = 8488404200) 83 mg/dL 70-110 Lab Interpretation (test code = Normal 87484-1) [facility] GLUCOSE (AUTOMATED)2022-07-15 17:34:16 Test Item Value Reference Range Interpretation Comments POCT GLU (test code = 9068093291) 83 mg/dL 70-110 Lab Interpretation (test code = Normal 79226-1) [facility] GLUCOSE (AUTOMATED)2022-07-15 13:47:19 Test Item Value Reference Range Interpretation Comments POCT GLU (test code = 0697961192) 78 mg/dL 70-110 Lab Interpretation (test code = Normal 00119-8) [facility] GLUCOSE (AUTOMATED)2022-07-15 05:06:41 Test Item Value Reference Range Interpretation Comments POCT GLU (test code = 2068035434) 78 mg/dL 70-110 Lab Interpretation (test code = Normal 75971-6) [facility] GLUCOSE (AUTOMATED)2022-07-15 01:20:38 Test Item Value Reference Range Interpretation Comments POCT GLU (test code = 4617781579) 89 mg/dL 70-110 Lab Interpretation (test code = Normal 32979-3) [facility] GLUCOSE (AUTOMATED)2022-07-14 21:10:53 Test Item Value Reference Range Interpretation Comments POCT GLU (test code = 4367105163) 88 mg/dL 70-110 Lab Interpretation (test code = Normal 74785-4) [facility] IRON BINDING [id number] 20:58:10 Test Item Value Reference Range Interpretation Comments TIBC (test code = 6214274810) 91 ug/dL 250-410 L Lab Interpretation (test code = Abnormal 54551-5) [facility] GLUCOSE (AUTOMATED)2022-07-14 16:20:20 Test Item Value Reference Range Interpretation Comments POCT GLU (test code = 1288740637) 79 mg/dL 70-110 Lab Interpretation (test code = Normal 56685-1) [facility] GLUCOSE (AUTOMATED)2022-07-14 12:47:35 Test Item Value Reference Range Interpretation Comments POCT GLU (test code = 0247390378) 70 mg/dL 70-110 Lab Interpretation (test code = Normal 28193-1) [facility] GLUCOSE (AUTOMATED)2022-07-14 09:08:20 Test Item Value Reference Range Interpretation Comments POCT GLU (test code = 7936548536) 100 mg/dL 70-110 Lab Interpretation (test code = Normal 87993-5) [facility] GLUCOSE (AUTOMATED)2022-07-13 22:29:45 Test Item Value Reference Range Interpretation Comments POCT GLU (test code = 3729094809) 90 mg/dL 70-110 Lab Interpretation (test code = Normal 89219-2) [facility] [id number] 21:45:17 Test Item Value Reference Range Interpretation Comments Case Report (test code Surgical Pathology ? ? = [id number]) ?Case: [id number] ? Authorizing Provider: ?German Bowling MD ? Collected: ? 07/11/2022 1528 ?Ordering Location: ? ? [facility] ? ? ?Received: ?07/11/2022 1829 ? [facility] ?Pathologist: ? Laila Ybarra MD PhD ?Specimen: ? ?SMALL INTESTINE, stitch distal ? Final Diagnosis (test z7lfcBBdWKPnw5ajNBJawE code = 1307659163) FuZzEwMzNcZnRuYmpcdWMx IHtccnRmMVxlcGljMTAxMD PcAT5jiIkikGw8mVflVJJo rgH7eQJuRVdpr6wzVFH5g6 htuzvtACBdHUeoVr7rcYWd mFjgBeKgHBCvXJs4jR88US ShhH1rhLNgMXw2DQOnlINc nfJeFwMbFOHsjJEklTC9XA SnRQ1fksqnJTloTDfhQADw pqW1KVGlaRKiQ1RvOQQgTF 8ufrqzJRH4LSpyJVJaPOI3 RwVoBSXgd1Cimcf2BvRapH FyZFxwbGFpblxmczIwXHBh ciBBLiBTTUFMTCBJTlRFU1 GWIaCfFKAYT2YADHpNHfbp nSSiHLGeASGtUTHVS19ZKc QDMAVAB6MBWI9VEcABAiBZ PqmGWSJnZ7xJSQSYSvWNG4 3ANaKDFLrCJl8PUeNHRB7Y NAAAOSTMEWNXN2qZMUByKN BhciAgICAgICBTRUNPTkRB MbxsBH9xID1HCTBAQUGNCD IWEB9SPRKejoHbMOVySJLS NPQXRWGwORGJT0gKFvZHEc EQIBGHR4UWW34raUTpKWBr VUWfWW1GQTQVF0NCJBRFZF MEAfNJRNuNL34HQxXNVGvN AJpSKA5NJMFPZZKeuMRhFG BvRYEbRBIPIaBXVO6OT42m EYcXZGbqUf2HOINuFB4OH9 JMHNHNVOZVXcDGDSoFU46E TkNZXHBhclxwYXJcZnMyMi BKdWFuIENhcmxvcyBBbHZh qgC5HB1serNvkaplEFXcBG oiRcVfQmGcFxWiMps7VrDT OJwmVJYkCyGsISmoVGE1v2 xydGYxXHNzdGVjZjIyMDAw TYKvc5jeUQUdbVTnNbRxEx NcZnRuYmpcdWMxXGRlZmYw o1qkb944vAGuq7hzOAZdAp I8gUSgXKAptZwbuln8yLkp XiAeUMLte1irghFmEeUrWQ QcVMEiXNWptUOtL043JMLf XYsry5eew8NuQHRzfUTyl8 Y5LOETBVdjCsBvU486c4or l4qimtDqcIG8IKQaINL5TN rnvwQugwC0LXzptVXiCxO9 IDtccmVkMFxncmVlbjBcYm u1VFNdC883RIL9tShrl7rm IHT2JHFrBKJjFwsbMr9sjR OgB771DHQrOSIJCHGggRd7 PBZeieVdcdVirAQTu963P8 11d8jsNZKjnoZyhBzMgnyf c0llI425EATnwLEygvZgHl NpCXIgiHNnsZB3IWXiWG9b iekdSTwvNEflCRLcowE1VM PuhQMmW9ZmOXIgRP0jqooi ENR6YApcBWHbDNF2IlEuCQ Hsi4Zqshx5OoHxfk1pyp87 MLR3m9TcbUvtWUH8TXQ0Ks GcVa5ekSChCEIqPZ8wEuEz zMPhGJGwqy77hGqfIHtakt MejK4bRyYpMONrxRDbAMOz VB0gwCIqZPHbkY1ojemaHG BnYnJkcmhlYWRccGdicmRy Pi1snXosHAZ0KDqtZ3cwqZ 1aItQ9TJgwE4kudM5tFBn0 KGfgxBU0DQBnzU0yMV6hbi qgc0acKJtdLUigQRGgxuP0 jeJ5GLVwnBIbE3DajF4nQW KbVF8kfhxvx6unPSQ1WTcv HZUeEZU5XrPiKUNgp7Plmk n3CfOwc5HmrVAnPFysH42l s262KZYpftOsD5rmyTLygu odqXCsccuuMKnrbfD3EKEo XHBsYWluXGYxXGZzMjBcbG FuZzEwMzNcaGljaFxmMVxk AmVnQISqEIzzP2klBvDeI4 YyXGZzMjBccGFyIEkgaGF2 TKZbSQIss51obDh9NKSewt gev2OvNONcwWFkqLBtaZ0u fpKbd6nyXAUlQKHfJMWlB1 AgTRW4hFNyPFXlkPArpGH5 BW2larXxIM4cXVQfSgyciy XfpMPcycWdTMFwATrea2po XB8lVLNevOsxzB1xeYY3QA Bwn3yxwGXwvZLvh2jfq9Mo bmFtZShzKSBtYXkgYXBwZW LzDO4cACBvnEAqwlVxf6I2 KmbtfOYqbwobHkswguG8LI reensgLYOyGCdnY3kyNzJh WGYjlMraIfanq8OmUEAaYB ZzMjhccGFyfX0= Clinical Information Small bowel (test code = obstruction 6326904830) Gross Description (test v3eysYVfDTTwsEMPXFIqHV code = 5389823962) RjKV3vaUiigDb1qEvnJJMr zzN5oJQmLYhyc0sdEEB8w4 llbiANClxkZWZmMVxwYXBl aoyoOcJ1FYmqXQSesdrtAZ q6TJbwWPUnkZV4JEDjnLAz K9AiRDGlTL7ljoe5GNQ9CM ylMXTgVhS7KXLnDxPaKlji XKe0EOXwdeX4Alq7DCCnOQ PhxKFfk2O4RJccpijjJXEl rJZvJ717CDi9KXQztF6zxT DaE6tyBVXmFAzcZMDeOPnx gCLjFQn8SNhgg2TryTEbRL pccGFyZCANCntcKlxlcGlj a3XuxJNwEJhoQVIdRJXjIB ebndupPOa1EIKfFDakxJVk WG4wsNxsDxgykWumw9VriE BcXGlkIDUxMDAyIFxcZGIg WG0DZtGmLVV5JPZ1AhGtWO p2LTt1ZS8ZWqYzNAFtBIEy XiT1GXWqVYw9JDeeKF8HGT S4Ecf0GJI2UDOfXEVqEfUm FRz7ISGrLEktJBBfdOZtLY jlYrYbEBLqQTltcGSbUF6y fVxwbGFpblxmczIwIFNQRU QUMILABQRjwHVoZY1LKXDg WWotRQPmtBNQBZZ1RK4mAY ANClxsdHJwYXJcbGluMFxy dQ8kEH6WPMa3mmXtFWMjCm QkH1FeS0yeYZ9mYHZnynIn SJNrcBKrGRCodmNmw7AfZD unygulpHSzVNsdACJ0iLVq VJTfVODcOPWdBY18F5Bpsl FtZSwgVUggbnVtYmVyLCBh bmQgZGVzaWduYXRlZFxjZj HxCRw5GCBmERHhXqlsg6Px gYYpAANrf2JqjRy6RCSpRN TfWmm5DFsuCHRdQPWlT73o gdLef9Iqq87diTitvG14AM I9mY0pMQapZG63WAJnOSys XHkaexp9qZH7SLMwZIVwnG ZfjzJerGZwfX8dPVKtdnNm DORhpAMaiLFqLHX6AVToM4 hbGR8tVTRuVHFxpabupuPo SMX1fNHpFNPcm8W1sSGjKA P0TGDzGCVdtBU0ENnnJZ2f EbJWeBLhVUPicjYjLZX5hQ UpUDGfzhZiIR53MV5oJZPl XNJqb7hveTL2HTieWHMiCX HjgIEuxy9mRSGiVKYqdXX7 CJudfKQbY7fmCTYrKYL4uP KeHTMiswArIADadR0gHAGd JK5yRDBaol49cRh4QQJpck XcKE3vWALmw3TxIEkgfYcd zRDkj6FfeTFqNvRpBD4uME WcSIRiz38yzPcrZEEub9gu nLCzORCvIX3fUNdqQWBdCM JvaNZsGUluGW0lUC8bCHH6 egAvOLAzZSuzmO7xrnSpRc YkkGDya0JzJW5bCReanM0w yykoK9ByN55unvPpoA1jYR oqKvZ4ohArCSYoHM8bKEIo TLCwBBO5dKRrajDkTHsxxm WfKIDzrp1kEStuIK6ye3Pt dGVyeSBpcyBwYWxwYXRlZC Dqh6XvpHevIKLwx9PqYefo ZBy4yZOgRD9jPILcP0CzKG vuTKKigh4xP9OqRXHojYTj kU9lrPbkESSeoxMsmD6vra VkziOhJHXhZDwtAG53ME9v QQPyq0PyOZktHmImF66lmW 8oaTKwW7NmGTufLa6bGNZv CGBaZD5jxDItMBBzyJFzbC OjHVF7ZJ9ePAXkslZgOK8w DN9tAU0xZAEjfUedEV49jX KmZABoMY8eSkIqekYuSG33 VNDxuvZiy8UilLnhhgYeEU SoCDY7Ek2sgPFkWPJvoqZY TN3SXm0ufJAoUU9BQRWdes LLKaFlDfWQXVBmY6ozXMEf bWFsbCBmcmFnbWVudCBvZi Mal0lpmYqmv2UppFvuCBBc KTWyoM8oKRAohHlqRGl4UL BhciANCkEyLUEzOiBMYXJn HJGnOZulHS21IK6cZHDqw0 AlZYOltf94zV1sxDUjKKYr lM9nNXOhbZbjCLv1GRUcle EFBiW2DiSPYVHeCPAfXGom UL23TY1jTZIzr6QdBQRquV O7HSntrUEzY0jdWOGwfhAf cmVseVxwYXIgDQpBNTogU2 QguZtnxgHhcOS9iMFjd6V2 dXJlZCBhcmVhIDQuMCBjbS Sily7cHKZqq0SihNDeNRDy pQ1nvCRkIG4DZPF3SCMmW6 Hti19wi2OgxSQbSAgjwEEo YMYcHNGzk7YfSj23AEjpc9 XhyNUlNoKyCM2yRPDjLSEv y61qbCpnXJYbp4stwNPuEY BsIKoaARMmGUvPFyjhDA5h dcZstKKxOAPaj4uppPT9ZL xkXQHjkcHTVgL5GcJQc88a lLcphKbfqd5iGLZwML0gdN BvkLSbOZO1aW5hQOtyAWVf WYfwyYZbOS9UQPCkTNRXfB llZXNoYSBXaWxoZWxtLCBN RCANClxlcGljTmVzdERvYz MigaZ1YJBctCUmDZN0NA5y IZPbrblyAXOlVNTjOXQ3RE bzfB09bQHwPJXvKQCerANp tKhoxJGxplAPJgklbT1qEh Lxc4ajoVa4UMFOAtxipEAv kbwfjuJ1VMHgm6rotRapf1 XrvVChMK7teYrprV0xHxNh NiANCn0= Disclaimer (test code = u6kkhBDgPUChg9amGLNvzX 0964388381) FuZzEwMzNcZnRuYmpcdWMx WZhuxxEvKSulg3QfN5HrMd AwMFxhbnNpXGRlZmxhbmcx NWLtHTH2pqWnTBXrIQhbJY BxZXsuPy8mwOViiYmoIxPl CJSiz4ioxaRXNWbqHmEtS2 49NAYwMIxix3xpl8TxTRPr cKAps4D6SNXWiiewfDz9pP xbK39dz0S3HmrgP9cwJXLx CZFiJ8YtNJ3nPEYwTbr8QB E7TIO6HWQoWGSxH1VqDT2f MICvxXDeFMh0n8nrhPloMI TyRPX1w3aqLGnlxkUrKO3h xi2riHh2t2snjqWdCBNyXP TkxRAXLAVgD3UhbDufUm5y oNl6gOipLilkSRH3Lqg9NA 7bnt20ynh0pQtgBZEclefy VxK4TFsbYFBguyyrTKi9JI ydMDFfsPS5YBYkcTCcU5Lp TMQeLR5enwz6SNS5IUovYH VdCuX0HCQxgOHsFQRunTga JYmrc474GBU9ZdXaDP0oC2 Zhc5B4fO8hwIEdRBVzjNCg QpIeGGEymo3wnXZkOWjtc3 GvYYM9xkY4xHMctHEsYTSv QO89Ihupo5IhZvsjh0VmW6 5trNZ1AYsrf6qsSP2oKcT0 ajNuIFqul7lscZ7bHrB0QM yoQJ3gLW0pRIKbiQ9doghv XHBnYnJkcmhlYWRccGdicm KoVf6ieUrwPZK6ECfjV1kz iS6jFbS7PCcwG3cwzS9eCF q2GXvqeOB8QMCivI5aZX6t kieji4zhRQloFFioGMMyne C5vmQ7FPHipXAcS7GmyN3u RQKrAK7cjaoos2ycGAE3EW ysSCCaVKZ1KgPqRUOve8Lg fos6PnRdm7DwhQLtACsyT6 4za344SHUhhiRcO2fucTLh jfibmFDlnuuyKItatlT5YG IysnBpd9QtHWCwEYQ6TIex SQqhlNBzQBYbjGjmp4lcY4 RscGFyXHBsYWluXGYxXGZz MjBcbGFuZzEwMzNcaGljaF nqZKmqIkKhSVBpMHesY5nq KqWcI2NrIGYyBfPxhBIoD4 ggVGhpcyByZXBvcnQgbWF5 GQpmC9v2MZZkwlAxaEe6dd KtNlSfOEAwNNB8PVtwcRUi ZFFad3NnelhntCTzTo6hyV PkDYNhdJ6aIXUuXWUaXHhw WD7ibAm6CJWBkKBgzZMfZb BMDSZzPC18jaJiSEDBervm o0C5KNlxCVRxy1RoyDCsM2 dat6KyHKCbr19wGK7dc9E7 c9ulPOU0KZ5ou8MmAYBpnV LbdWOrOABvg4Tarwmti2Yp UNKcioRby7MiXHTatlLgpO ZbQZFsfnMaqn1hyfUrIIZs MCNsZ6CawgiqkAinvmAkOX Tffr9hwkIlLOY0QHCTKANh JBZcg8LbuV4kbSATFJF5zY Lpcp9peaUIyOGiFJXspn92 RZClGR1qD7twBDBaWBNufc LejYTza8SoXYCzpNN5vZXz ZA7GKcDNg59zDSMgQLWWnv LuDAFchNuwuOP1xdJ1rH5p IChGREEpLlx+IFRoZSBGRE SaKU6cqyVad3HidgPyjAwv WGEjxFAfp9JbhYCtb1LkrK utg1LtqHQynMRcRJ5bCJEc clxwYXIgVVRNQiBMYWJvcm R7q5QhZPUuSVAkBVQ2cPhj dwd8DJBkkN8sHIBpG8ubwe qoCWjdNVLox2CabB0chYZR wJDrp8YacBWahACWzXSyMJ 3sogLnVSmCJCuBCBS6pxQn RNZts7DgHVbwX6mqO70nfS eusIl9qFK8CLH7lH1fFnk+ IFxwYXJccGFyIEFwcHJvcH EiMEHioFpwqhNrL7DbdbEc iB9xqKYwruDxNV6dJE6lM6 J8gRIqISWwfmZra4czEJjb dmUgYmVlbiByZXZpZXdlZC Dfa5FnMYxlMBN7OXgfsgMn bmNsdWRpbmcgSCZFLCBTcG GluBOmEIR8DPqkpsYjwnAw QD6riF0dnArfxW1xiLRxyP Z0hcnbLGFkNTNtkYqvEHVy EG2rhQBbIHVraeUJgGkxpU ApzU8uU5TqBPMvWCXwqk7b KIBilE7aBFvpa1AuweqrII AzKWXmAOHwqnOypk5uRPMp vCEURC8EVQuhgXAed0Krjw OlR6fGAXR0XZBdVyXaSzls OQQnjPWxqCYsJUVuru05JJ HpkS8fjAqoREZqcE5xsM8s gNlwyJ3rNtPuJxIoUMrzBS 2cLKRcS1xtdWKjDVAmCTLi H5qwJqEtrG5ogUrtHZcwJv QuJfKrBSywAOD7pE== Embedded Images (test code = 1638004555) [facility] GLUCOSE (AUTOMATED)2022-07-13 21:03:47 Test Item Value Reference Range Interpretation Comments POCT GLU (test code = 3067293669) 57 mg/dL 70-110 L Lab Interpretation (test code = Abnormal 03963-3) [facility] Test Item Value Reference Range Interpretation Comments PALB (test code = 03772-3) 4.1 mg/dL 18-45 L Lab Interpretation (test code = Abnormal 17055-1) [facility] GLUCOSE (AUTOMATED)2022-07-13 15:52:08 Test Item Value Reference Range Interpretation Comments POCT GLU (test code = 0664304605) 167 mg/dL 70-110 H Lab Interpretation (test code = Abnormal 92503-3) [facility] GLUCOSE (AUTOMATED)2022-07-13 15:18:37 Test Item Value Reference Range Interpretation Comments POCT GLU (test code = 9144392268) 160 mg/dL 70-110 H Lab Interpretation (test code = Abnormal 85618-0) [facility] WITH [id number] 15:11:15 Test Item Value Reference Range Interpretation Comments WBC (test code = See_Comment [Automated message] 6690-2) The system [employer] generated this result transmitted ref erence range: 4.20 - 1 0.70 10*3/?L. The reference range was not used to int erpret this result as normal/abnormal . RBC (test code = See_Comment L [Automated message] 789-8) The system [employer] generated this result transmitted ref erence range: [...] (test code = 56.9 fL 38.5-51.6 H 38565-9) RDW-CV (test code = 17.2 % 12.1-15.4 H 788-0) PLT (test code = See_Comment [Automated message] 777-3) The system [employer] generated this result transmitted ref erence range: 150 - 32 8 10*3/?L. The reference range was not used to int erpret this result as normal/abnormal . MPV (test code = 11.3 fL 9.8-13 14255-1) NRBC/100 WBC (test See_Comment [Automat ed message] code = 3998716776) The [employer] which generated this result transmitted ref erence range: 0.0 - 10 .0 /100 WBCs. The reference range was not used to int erpret this result as normal/abnormal . NRBC x10^3 (test See_Comment [Automated message] code = 4066719500) The [employer] which generated this result transmitted ref erence range: 10*3/?L. The reference range was not used to int erpret this result as normal/abnormal . GRAN MAT (NEUT) % 75.1 % (test code = 770-8) IMM GRAN % (test 0.40 % code = 9650835782) LYMPH % (test code = 18.0 % 736-9) MONO % (test code = 5.1 % 5905-5) EOS % (test code = 1.3 % 713-8) BASO % (test code = 0.1 % 706-2) GRAN MAT x10^3(ANC) 5.26 10*3/uL 1.99-6.95 (test code = 8460079775) IMM GRAN x10^3 (test 0.03 10*3/uL 0-0.06 code = 1328879345) LYMPH x10^3 (test 1.26 10*3/uL 1.09-3.23 code = 731-0) MONO x10^3 (test 0.36 10*3/uL 0.36-1.02 code = 742-7) EOS x10^3 (test code 0.09 10*3/uL 0.06-0.53 = 711-2) BASO x10^3 (test 0.01-0.09 code = 704-7) ELLIPTO/OVAL (test 2+ See_Comment A [Automat ed message] code = 37345-6) The system [employer] generated this result transmitted ref erence range: (none). The reference range was not used to int erpret this result as normal/abnormal . HGB C CRYSTALS (test Suggestive of Red bl ood cell code = 9098848045) morpholog y suggestive of Hemoglobin C crystals. Hemog lobin electrophoresis recommended for confirmation. SCHISTOCYTES (test 1+ A code = 800-3) TARGET CELLS (test 2+ See_Comment A [Automat ed message] code = 58883-0) The system [employer] generated this result transmitted ref erence range: (none). The reference range was not used to int erpret this result as normal/abnormal . BANDS (test code = Increased A 8713282095) DOHLE BODIES (test Present A code = 7792-5) Lab Interpretation Abnormal (test code = 56771-8) [facility] 15:03:40 Test Item Value Reference Range Interpretation Comments POCT GLU (test code = 9276794787) 34 mg/dL 70-110 LL Lab Interpretation (test code = Abnormal 15935-7) [facility] (NA, K, CL, CO2, GLUCOSE, BUN, CREATININE, CA)2022-07-13 14:55:02 Test Item Value Reference Range Interpretation Comments NA (test code = 151 mmol/L 135-145 H 0733904477) K (test code = 3.0 mmol/L 3.5-5 L 9017989882) CL (test code = 120 mmol/L 98-108 H 3485632624) CO2 TOTAL (test code = 26 mmol/L 23-31 2953147428) AGAP (test code = 2-16 2809730075) BUN (test code = 17 mg/dL 7-23 8329963468) GLUCOSE (test code = 34 mg/dL 70-110 LL 8479672343) CREATININE (test code = 0.76 mg/dL 0.6-1.25 5538314848) CALCIUM (test code = 7.8 mg/dL 8.6-10.6 L 9426740674) eGFR (test code = mL/min/1.73m2 8817077624) LU (test code = LU) Association of [...] tests). Lab Interpretation Abnormal (test code = 01937-9) [facility]:59 Test Item Value Reference Range Interpretation Comments MAGNESIUM (test code = 5688240984) 2.1 mg/dL 1.7-2.4 Lab Interpretation (test code = Normal 93761-1) [facility] 14:49:59 Test Item Value Reference Range Interpretation Comments PHOSPHORUS (test code = 2485856915) 2.7 mg/dL 2.5-5 Lab Interpretation (test code = Normal 74681-5) [facility] 22:45:16 Test Item Value Reference Range Interpretation Comments PALB (test code = 40688-7) 5.1 mg/dL 18-45 L Lab Interpretation (test code = Abnormal 19573-3) [facility] Lactic [id number] 20:56:10 Test Item Value Reference Range Interpretation Comments PH (test code = 2) 7.35-7.45 L PCO2 (test code = See_Comment H [Automate d 1023611736) message] The [employer] which generated this result transmitted reference range : 35 - 45 mmHg. The reference range was not used to interpret this result as normal/abnormal . PO2 (test code = See_Comment H [Automated 5415483908) message] The sy [employer] which generated this result transmitted reference range : 80 - 100 mmHg. The reference range was not used to interpret this result as normal/abnormal . HCO3 (test code = See_Comment [Automate d 8352804276) message] The sy stem which generated this result transmitted reference range : 22 - 26 mEq/L. The reference range was not used to interpret this result as normal/abnormal . BE (test code = See_Comment L [Automated 8212062652) message] The sy stem which generated this result transmitted reference range : -3.0 - 3.0 mEq/ L. The reference r alisson was not used to interpret this result as normal/abnormal . THB (test code = 8.0 g/dL 13.5-18 LL 6863779946) %O2HB (test code = 96.3 % 94-99 6389805561) %COHB ART (test code = 0.5 % 0-1.5 4088984907) %METHB ART (test code = 0.3 % 0.4-1.5 L 8475086923) VOL%O2 ART (test code = 11.1 % 15-23 L 8815831166) NA (test code = 145 mmol/L 135-145 9715833071) K+ (test code = 3.6 mmol/L 3.5-5 1961330926) AC CA IONZ (test code = 5.30 mg/dL 4.5-5.3 0182164103) GLUCOSE (test code = 163 mg/dL 70-110 H 8656767559) LACTIC ACID (test code 0.49 mmol/L 0.5-2.2 L = 1725401692) Lab Interpretation Abnormal (test code = 27485-0) [facility] Lactic [id number] 20:56:10 Test Item Value Reference Range Interpretation Comments PH (test code = 2) 7.35-7.45 L PCO2 (test code = See_Comment H [Automate d 7390012565) message] The sy stem which generated this result transmitted reference range : 35 - 45 mmHg. The reference range was not used to interpret this result as normal/abnormal . PO2 (test code = See_Comment H [Automated 1078749026) message] The sy stem which generated this result transmitted reference range : 80 - 100 mmHg. The reference range was not used to interpret this result as normal/abnormal . HCO3 (test code = See_Comment [Automate d 2629144082) message] The sy stem which generated this result transmitted reference range : 22 - 26 mEq/L. The reference range was not used to interpret this result as normal/abnormal . BE (test code = See_Comment L [Automated 7955730000) message] The sy stem which generated this result transmitted reference range : -3.0 - 3.0 mEq/ L. The reference r alisson was not used to interpret this result as normal/abnormal . THB (test code = 8.0 g/dL 13.5-18 LL 9845289829) %O2HB (test code = 96.3 % 94-99 0521501684) %COHB ART (test code = 0.5 % 0-1.5 9925433579) %METHB ART (test code = 0.3 % 0.4-1.5 L 6383212306) VOL%O2 ART (test code = 11.1 % 15-23 L 5771102035) NA (test code = 145 mmol/L 135-145 6026297048) K+ (test code = 3.6 mmol/L 3.5-5 6005484908) AC CA IONZ (test code = 5.30 mg/dL 4.5-5.3 9616619877) GLUCOSE (test code = 163 mg/dL 70-110 H 4306938715) LACTIC ACID (test code 0.49 mmol/L 0.5-2.2 L = 4751403123) Lab Interpretation Abnormal (test code = 35544-3) [facility] [id number] 16:12:23 Test Item Value Reference Range Interpretation Comments LACTIC ACID (test code = 1.23 mmol/L 0.5-2.2 9485021088) Lab Interpretation (test code = Normal 29038-2) [facility] Acid Whole [id number] 16:12:23 Test Item Value Reference Range Interpretation Comments LACTIC ACID (test code = 1.23 mmol/L 0.5-2.2 8649953483) Lab Interpretation (test code = Normal 38846-5) [facility]. METABOLIC PANEL ([id number])2022-07-10 00:41:51 Test Item Value Reference Range Interpretation Comments NA (test code = 137 mmol/L 135-145 7760867655) K (test code = 2.6 mmol/L 3.5-5 LL 4228791579) CL (test code = 93 mmol/L 98-108 L 0804045659) CO2 TOTAL (test code = 31 mmol/L 23-31 4465207467) AGAP (test code = 2-16 1584450895) BUN (test code = 28 mg/dL 7-23 H 8501437091) GLUCOSE (test code = 140 mg/dL 70-110 H 6900204278) CREATININE (test code = 2.04 mg/dL 0.6-1.25 H 6893698673) TOTAL BILI (test code = 0.6 mg/dL 0.1-1.0 8034520965) CALCIUM (test code = 7.6 mg/dL 8.6-10.6 L 4277598451) T PROTEIN (test code = 7.3 g/dL 6.3-8.2 9055004967) ALBUMIN (test code = 3.2 g/dL 3.5-5 L 9253619910) ALK PHOS (test code = 146 U/L 34-122 H 5152503715) ALTv (test code = 13 U/L 5-50 2-6) AST(SGOT) (test code = 17 U/L 13-40 9679791502) eGFR (test code = mL/min/1.73m2 3371864259) LU (test code = LU) Association of [...] tests). Lab Interpretation Abnormal (test code = 79473-7) [facility]. METABOLIC PANEL ([id number])2022-07-10 00:41:51 Test Item Value Reference Range Interpretation Comments NA (test code = 137 mmol/L 135-145 4229599990) K (test code = 2.6 mmol/L 3.5-5 LL 7420250392) CL (test code = 93 mmol/L 98-108 L 8782315315) CO2 TOTAL (test code = 31 mmol/L 23-31 4194797432) AGAP (test code = 2-16 5204339847) BUN (test code = 28 mg/dL 7-23 H 6880629618) GLUCOSE (test code = 140 mg/dL 70-110 H 0968517005) CREATININE (test code = 2.04 mg/dL 0.6-1.25 H 1055123547) TOTAL BILI (test code = 0.6 mg/dL 0.1-1.1 4730783563) CALCIUM (test code = 7.6 mg/dL 8.6-10.6 L 3476079293) T PROTEIN (test code = 7.3 g/dL 6.3-8.2 9670284548) ALBUMIN (test code = 3.2 g/dL 3.5-5 L 7692337302) ALK PHOS (test code = 146 U/L 34-122 H 7221241302) ALTv (test code = 13 U/L 5-50 1742-6) AST(SGOT) (test code = 17 U/L 13-40 2185034941) eGFR (test code = mL/min/1.73m2 6515268710) LU (test code = LU) Association of [...] tests). Lab Interpretation Abnormal (test code = 79334-2) [facility]2022-09-17 00:33:02 Test Item Value Reference Range Interpretation Comments MAGNESIUM (test code = 0120137380) 2.3 mg/dL 1.7-2.4 Lab Interpretation (test code = Normal 98705-3) [facility]2022-09-17 00:33:02 Test Item Value Reference Range Interpretation Comments MAGNESIUM (test code = 7740875919) 2.3 mg/dL 1.7-2.4 Lab Interpretation (test code = Normal 54277-4) [facility] Test Item Value Reference Range Interpretation Comments LIPASE (test code = 5724278900) 18 U/L 0-220 Lab Interpretation (test code = Normal 57240-8) [facility] Test Item Value Reference Range Interpretation Comments LIPASE (test code = 2856129374) 18 U/L 0-220 Lab Interpretation (test code = Normal 60644-3) [facility] WITH [id number] 00:18:00 Test Item Value Reference Range Interpretation Comments WBC (test code = See_Comment H [Automated 6890-2) message] The system which generated this result [...] RDW-SD (test code = 47.0 fL 38.5-51.6 26788-4) RDW-CV (test code = 15.4 % 12.1-15.4 788-0) PLT (test code = See_Comment H [Automated 777-3) message] The system which generated this result transmit annette reference range : 150 - 328 10*3/ ?L. The reference range was not u sed to interpret th is result as normal/abnormal . MPV (test code = 10.7 fL 9.8-13 94727-2) NRBC/100 WBC (test See_Comment [Automat ed code = 0940074324) message] The system which generated this result transmit annette reference range : 0.0 - 10.0 /100 WBCs. The reference range was not used to interpret this result as normal/abnormal . NRBC x10^3 (test code See_Comment [Auto mated = 9840422889) message] The system which generated this result transmit annette reference range : 10*3/?L. The reference range was not used to interpret this result as normal/abnormal . GRAN MAT (NEUT) % 83.3 % (test code = 770-8) IMM GRAN % (test code 0.50 % = 0776431462) LYMPH % (test code = 10.1 % 736-9) MONO % (test code = 5.9 % 5905-5) EOS % (test code = 0.0 % 713-8) BASO % (test code = 0.2 % 706-2) GRAN MAT x10^3(ANC) 10.78 10*3/uL 1.99-6.95 H (test code = 2063213083) IMM GRAN x10^3 (test 0.06 10*3/uL 0-0.06 code = 7991108985) LYMPH x10^3 (test code 1.31 10*3/uL 1.09-3.23 = 731-0) MONO x10^3 (test code 0.76 10*3/uL 0.36-1.02 = 742-7) EOS x10^3 (test code = 0.06-0.53 L 711-2) BASO x10^3 (test code 0.01-0.09 = 704-7) Lab Interpretation Abnormal (test code = 21480-9) [facility] WITH [id number] 00:18:00 Test Item Value Reference Range Interpretation Comments WBC (test code = See_Comment H [Automated 3274-2) message] The system which generated this result transmit annette reference range : 4.20 - 10.70 10*3/?L. The reference range was not used to interpret this result as normal/abnormal . RBC (test code = See_Comment [Automated 140-8) message] The system which generated this result [...] RDW-SD (test code = 47.0 fL 38.5-51.6 46548-6) RDW-CV (test code = 15.4 % 12.1-15.4 788-0) PLT (test code = See_Comment H [Automated 777-3) message] The system which generated this result transmit annette reference range : 150 - 328 10*3/ ?L. The reference range was not u sed to interpret th is result as normal/abnormal . MPV (test code = 10.7 fL 9.8-13 31730-5) NRBC/100 WBC (test See_Comment [Automat ed code = 9045205936) message] The system which generated this result transmit annette reference range : 0.0 - 10.0 /100 WBCs. The reference range was not used to interpret this result as normal/abnormal . NRBC x10^3 (test code See_Comment [Auto mated = 4070350559) message] The system which generated this result transmit annette reference range : 10*3/?L. The reference range was not used to interpret this result as normal/abnormal . GRAN MAT (NEUT) % 83.3 % (test code = 770-8) IMM GRAN % (test code 0.50 % = 1352852753) LYMPH % (test code = 10.1 % 736-9) MONO % (test code = 5.9 % 5905-5) EOS % (test code = 0.0 % 713-8) BASO % (test code = 0.2 % 706-2) GRAN MAT x10^3(ANC) 10.78 10*3/uL 1.99-6.95 H (test code = 5166680904) IMM GRAN x10^3 (test 0.06 10*3/uL 0-0.06 code = 6961951605) LYMPH x10^3 (test code 1.31 10*3/uL 1.09-3.23 = 731-0) MONO x10^3 (test code 0.76 10*3/uL 0.36-1.02 = 742-7) EOS x10^3 (test code = 0.06-0.53 L 711-2) BASO x10^3 (test code 0.01-0.09 = 704-7) Lab Interpretation Abnormal (test code = 88854-0) [facility]. METABOLIC PANEL (62045)2022-05-27 01:04:32 Test Item Value Reference Range Interpretation Comments NA (test code = 135 mmol/L 135-145 3257714662) K (test code = 2.3 mmol/L 3.5-5 LL 3045782276) CL (test code = 102 mmol/L 98-108 5709482907) CO2 TOTAL (test code = 21 mmol/L 23-31 L 0898703246) AGAP (test code = 2-16 9318197789) BUN (test code = 5 mg/dL 7-23 L 6594357646) GLUCOSE (test code = 142 mg/dL 70-110 H 6528201116) CREATININE (test code = 0.68 mg/dL 0.6-1.25 0749615808) TOTAL BILI (test code = 0.6 mg/dL 0.1-1.6 3854263202) CALCIUM (test code = 7.9 mg/dL 8.6-10.6 L 9155727643) T PROTEIN (test code = 7.3 g/dL 6.3-8.2 9186588009) ALBUMIN (test code = 3.2 g/dL 3.5-5 L 6540023751) ALK PHOS (test code = 100 U/L 34-122 5730494709) ALTv (test code = 13 U/L 5-50 1742-6) AST(SGOT) (test code = 17 U/L 13-40 6939715377) eGFR (test code = mL/min/1.73m2 8643652281) LU (test code = LU) Association of [...] tests). Lab Interpretation Abnormal (test code = 22564-8) [facility] WITH [id number] 00:45:16 Test Item Value Reference Range Interpretation Comments WBC (test code = See_Comment [Automated 2690-2) message] The sy stem which generated this result transmitted reference range : 4.20 - 10.70 10*3/?L. The reference range was not used to interpret this result as normal/abnormal . RBC (test code = See_Comment L [Automated 929-8) message] The sy stem which generated this [...] RDW-SD (test code = 49.6 fL 38.5-51.6 78148-0) RDW-CV (test code = 15.1 % 12.1-15.4 788-0) PLT (test code = See_Comment [Automated 777-3) message] The sy stem which generated this result transmitted reference range : 150 - 328 10*3/ ?L. The reference r alisson was not used to interpret this result as normal/abnormal . MPV (test code = 11.2 fL 9.8-13 20126-4) NRBC/100 WBC (test See_Comment [Automat ed code = 6764995732) message] The system which generated this result transmitted reference range : 0.0 - 10.0 /100 WBCs. The refer ence range was not u sed to interpret th is result as normal/abnormal . NRBC x10^3 (test code See_Comment [Auto mated = 1907170494) message] The s ystem which generated this result transmitted reference range : 10*3/?L. The reference range was not used to interpret this result as normal/abnormal . GRAN MAT (NEUT) % 72.3 % (test code = 770-8) IMM GRAN % (test code 0.20 % = 5346991865) LYMPH % (test code = 19.9 % 736-9) MONO % (test code = 6.3 % 5905-5) EOS % (test code = 1.0 % 713-8) BASO % (test code = 0.3 % 706-2) GRAN MAT x10^3(ANC) 6.43 10*3/uL 1.99-6.95 (test code = 7612558694) IMM GRAN x10^3 (test 0-0.06 code = 1095600851) LYMPH x10^3 (test code 1.77 10*3/uL 1.09-3.23 = 731-0) MONO x10^3 (test code 0.56 10*3/uL 0.36-1.02 = 742-7) EOS x10^3 (test code = 0.09 10*3/uL 0.06-0.53 711-2) BASO x10^3 (test code 0.03 10*3/uL 0.01-0.09 = 704-7) Lab Interpretation Abnormal (test code = 47441-1) [facility] (NA, K, CL, CO2, GLUCOSE, BUN, CREATININE, CA)2022-04-29 10:41:04 Test Item Value Reference Range Interpretation Comments NA (test code = 141 mmol/L 135-145 4561622160) K (test code = 4.1 mmol/L 3.5-5 5912572682) CL (test code = 113 mmol/L 98-108 H 3772797866) CO2 TOTAL (test code = 26 mmol/L 23-31 7131425027) AGAP (test code = 2-16 9323535767) BUN (test code = 2 mg/dL 7-23 L 3658524822) GLUCOSE (test code = 77 mg/dL 70-110 6378892088) CREATININE (test code = 0.43 mg/dL 0.6-1.25 L 2644995621) CALCIUM (test code = 7.5 mg/dL 8.6-10.6 L 3307363115) eGFR (test code = mL/min/1.73m2 6562172667) LU (test code = LU) Association of [...] tests). Lab Interpretation Abnormal (test code = 15932-0) [facility] METABOLIC PANEL (NA, K, CL, CO2, GLUCOSE, BUN, CREATININE, CA)2022-04-29 10:41:04 Test Item Value Reference Range Interpretation Comments NA (test code = 141 mmol/L 135-145 8526731634) K (test code = 4.1 mmol/L 3.5-5.0 5099569396) CL (test code = 113 mmol/L 98-108 H 0570564468) CO2 TOTAL (test code = 26 mmol/L 23-31 4374859295) AGAP (test code = 2-16 2186262609) BUN (test code = 2 mg/dL 7-23 L 8713517545) GLUCOSE (test code = 77 mg/dL 70-110 0589513463) CREATININE (test code = 0.43 mg/dL 0.60-1.25 L 4684636442) CALCIUM (test code = 7.5 mg/dL 8.6-10.6 L 1496734230) eGFR (test code = mL/min/1.73m2 2740061891) LU (test code = LU) Association of [...] tests). Lab Interpretation Abnormal (test code = 64659-2[facility] Test Item Value Reference Range Interpretation Comments MAGNESIUM (test code = 1344562152) 1.7 mg/dL 1.7-2.4 Lab Interpretation (test code = Normal 69030-1) [facility] Test Item Value Reference Range Interpretation Comments MAGNESIUM (test code = 5959663551) 1.7 mg/dL 1.7-2.4 Lab Interpretation (test code = Normal 62852-8) [facility] MET[facility]OLIC PANEL (NA, K, CL, CO2, GLUCOSE, BUN, CREATININE, CA)2022-04-28 17:52:13 Test Item Value Reference Range Interpretation Comments NA (test code = 142 mmol/L 135-145 2606255407) K (test code = 2.6 mmol/L 3.5-5 LL 6066544391) CL (test code = 109 mmol/L 98-108 H 0054965126) CO2 TOTAL (test code = 26 mmol/L 23-31 3510731009) AGAP (test code = 2-16 6545028000) BUN (test code = 3 mg/dL 7-23 L 7784326901) GLUCOSE (test code = 95 mg/dL 70-110 1638823047) CREATININE (test code = 0.57 mg/dL 0.6-1.25 L 8657296688) CALCIUM (test code = 7.6 mg/dL 8.6-10.6 L 7791939233) eGFR (test code = mL/min/1.73m2 6434399741) LU (test code = LU) Association of [...] tests). Lab Interpretation Abnormal (test code = 27888-8) [facility] MET[facility]OLIC PANEL (NA, K, CL, CO2, GLUCOSE, BUN, CREATININE, CA)2022-04-28 17:52:13 Test Item Value Reference Range Interpretation Comments NA (test code = 142 mmol/L 135-145 7081836675) K (test code = 2.6 mmol/L 3.5-5.0 LL 6424270281) CL (test code = 109 mmol/L 98-108 H 8988644791) CO2 TOTAL (test code = 26 mmol/L 23-31 3308990545) AGAP (test code = 2-16 9273666286) BUN (test code = 3 mg/dL 7-23 L 6263876378) GLUCOSE (test code = 95 mg/dL 70-110 6171694415) CREATININE (test code = 0.57 mg/dL 0.60-1.25 L 5649419693) CALCIUM (test code = 7.6 mg/dL 8.6-10.6 L 4470781894) eGFR (test code = mL/min/1.73m2 4744137362) LU (test code = LU) Association of [...] tests). Lab Interpretation Abnormal (test code = 89643-2) [facility] MET[facility]IC PANEL (NA, K, CL, CO2, GLUCOSE, BUN, CREATININE, CA)2022-04-28 17:52:13 Test Item Value Reference Range Interpretation Comments NA (test code = 142 mmol/L 135-145 4869995756) K (test code = 2.6 mmol/L 3.5-5.0 LL 0226987859) CL (test code = 109 mmol/L 98-108 H 8926314449) CO2 TOTAL (test code = 26 mmol/L 23-31 0284189944) AGAP (test code = 2-16 1915524922) BUN (test code = 3 mg/dL 7-23 L 1517820503) GLUCOSE (test code = 95 mg/dL 70-110 1727893424) CREATININE (test code = 0.57 mg/dL 0.60-1.25 L 2350336803) CALCIUM (test code = 7.6 mg/dL 8.6-10.6 L 6967325839) eGFR (test code = mL/min/1.73m2 3959898659) LU (test code = LU) Association of [...] tests). Lab Interpretation Abnormal (test code = 74745-9) [facility] WITHOUT [id number] 17:16:02 Test Item Value Reference Range Interpretation Comments WBC (test code = 6690-2) See_Comment [A utomated message] The system [employer] generated this result transmit annette reference range : 4.20 - 10.70 10*3/?L. The reference range was not used to interpret this result as normal/abnormal . RBC (test code = 789-8) See_Comment L [Au tomated message] The system [employer] generated this result transmit annette reference range [...] [Au tomated message] The system [facility] generated this result transmit annette reference range : 150 - 328 10*3/?L. The reference range was not used to interpret this result as normal/abnormal . MPV (test code = 10.7 fL 9.8-13 45470-2) RDW-CV (test code = 14.9 % 12.1-15.4 788-0) RDW-SD (test code = 48.9 fL 38.5-51.6 69589-0) NRBC x10^3 (test code = See_Comment [Au tomated message] 2733371499) The system [facility] generated this result transmit annette reference range : 10*3/?L. The reference range was not used to interpret this result as normal/abnormal . NRBC/100 WBC (test code See_Comment [Au tomated message] = 0817729843) The system [facility] generated this result transmit annette reference range : 0.0 - 10.0 /100 WBC s. The reference r alisson was not used to interpret this result as normal/abnormal . IPF % (test code = 2377645840) Lab Interpretation (test Abnormal code = 42237-7) [facility] WITHOUT [id number] 17:16:02 Test Item Value Reference Range Interpretation Comments WBC (test code = 6690-2) See_Comment [A utomated message] The system [facility] generated this result transmit annette reference range : 4.20 - 10.70 10*3/?L. The reference range was not used to interpret this result as normal/abnormal . RBC (test code = 789-8) See_Comment L [Au tomated message] The system [employer] generated this result transmit annette reference range [...] 777-3) See_Comment [Au tomated message] The system [employer] generated this result transmit annette reference range : 150 - 328 10*3/?L. The reference range was not used to interpret this result as normal/abnormal . MPV (test code = 10.7 fL 9.8-13.0 33114-9) RDW-CV (test code = 14.9 % 12.1-15.4 788-0) RDW-SD (test code = 48.9 fL 38.5-51.6 64050-7) NRBC x10^3 (test code = <0.01 See_Comment [Au tomated message] 7290045732) The system [employer] generated this result transmit annette reference range : 10*3/?L. The reference range was not used to interpret this result as normal/abnormal . NRBC/100 WBC (test code See_Comment [Au tomated message] = 3281904903) The system [facility] generated this result transmit annette reference range : 0.0 - 10.0 /100 WBC s. The reference r alisson was not used to interpret this result as normal/abnormal . IPF % (test code = 2688352947) Lab Interpretation (test Abnormal code = 99833-0) [facility] WITHOUT [id number] 17:16:02 Test Item Value Reference Range Interpretation Comments WBC (test code = 6690-2) See_Comment [A utomated message] The system [email or web address] generated this result transmit annette reference range : 4.20 - 10.70 10*3/?L. The reference range was not used to interpret this result as normal/abnormal . RBC (test code = 789-8) See_Comment L [Au tomated message] The system [email or web address] generated this result transmit annette reference range [...] [Au tomated message] The system [facility] generated this result transmit annette reference range : 150 - 328 10*3/?L. The reference range was not used to interpret this result as normal/abnormal . MPV (test code = 10.7 fL 9.8-13.0 66517-1) RDW-CV (test code = 14.9 % 12.1-15.4 788-0) RDW-SD (test code = 48.9 fL 38.5-51.6 47523-4) NRBC x10^3 (test code = <0.01 See_Comment [Au tomated message] 2301620611) The system [employer] generated this result transmit annette reference range : 10*3/?L. The reference range was not used to interpret this result as normal/abnormal . NRBC/100 WBC (test code See_Comment [Au tomated message] = 4654251085) The system [facility] generated this result transmit annette reference range : 0.0 - 10.0 /100 WBC s. The reference r alisson was not used to interpret this result as normal/abnormal . IPF % (test code = 2411521117) Lab Interpretation (test Abnormal code = 74172-2) [id number]:26 Test Item Value Reference Range Interpretation Comments K (test code = 5839304909) 3.3 mmol/L 3.5-5 L Lab Interpretation (test code = Abnormal 26660-5) [facility] METABOLIC PANEL (NA, K, CL, CO2, GLUCOSE, BUN, CREATININE, CA)2022-04-27 22:31:26 Test Item Value Reference Range Interpretation Comments NA (test code = 144 mmol/L 135-145 2317100912) K (test code = 3.3 mmol/L 3.5-5 L 3477120464) CL (test code = 112 mmol/L 98-108 H 4838014701) CO2 TOTAL (test code = 27 mmol/L 23-31 0186901890) AGAP (test code = 2-16 7304559271) BUN (test code = 5 mg/dL 7-23 L 3814595924) GLUCOSE (test code = 118 mg/dL 70-110 H 6953770024) CREATININE (test code = 0.63 mg/dL 0.6-1.25 4373424516) CALCIUM (test code = 7.6 mg/dL 8.6-10.6 L 5704720293) eGFR (test code = mL/min/1.73m2 9392821059) LU (test code = LU) Association of [...] tests). Lab Interpretation Abnormal (test code = 55239-8) [facility] [id number] 22:31:26 Test Item Value Reference Range Interpretation Comments K (test code = 1500333350) 3.3 mmol/L 3.5-5.0 L Lab Interpretation (test code = Abnormal 81005-0) [facility] [id number] 22:31:26 Test Item Value Reference Range Interpretation Comments K (test code = 8632143636) 3.3 mmol/L 3.5-5.0 L Lab Interpretation (test code = Abnormal 30369-6) [facility] METABOLIC PANEL (NA, K, CL, CO2, GLUCOSE, BUN, CREATININE, CA)2022-04-27 22:31:26 Test Item Value Reference Range Interpretation Comments NA (test code = 144 mmol/L 135-145 5231265625) K (test code = 3.3 mmol/L 3.5-5.0 L 2401998567) CL (test code = 112 mmol/L 98-108 H 4710118803) CO2 TOTAL (test code = 27 mmol/L 23-31 2380461753) AGAP (test code = 2-16 9647124755) BUN (test code = 5 mg/dL 7-23 L 5766206511) GLUCOSE (test code = 118 mg/dL 70-110 H 6412491678) CREATININE (test code = 0.63 mg/dL 0.60-1.25 1882328052) CALCIUM (test code = 7.6 mg/dL 8.6-10.6 L 6290358066) eGFR (test code = mL/min/1.73m2 4357351227) LU (test code = LU) Association of [...] tests). Lab Interpretation Abnormal (test code = 16143-6) [facility]2022-07-05 21:22:49 Test Item Value Reference Range Interpretation Comments MAGNESIUM (test code = 0520212973) 2.1 mg/dL 1.7-2.4 Lab Interpretation (test code = Normal 16229-3) [facility]2022-07-05 21:22:49 Test Item Value Reference Range Interpretation Comments MAGNESIUM (test code = 7171487693) 2.1 mg/dL 1.7-2.4 Lab Interpretation (test code = Normal 89186-9) [facility]2022-07-05 21:22:49 Test Item Value Reference Range Interpretation Comments MAGNESIUM (test code = 9023493650) 2.1 mg/dL 1.7-2.4 Lab Interpretation (test code = Normal 31785-8) [facility] (NA, K, CL, CO2, GLUCOSE, BUN, CREATININE, CA)2022-04-27 15:50:29 Test Item Value Reference Range Interpretation Comments NA (test code = 143 mmol/L 135-145 3451944637) K (test code = 2.4 mmol/L 3.5-5 LL 0806166944) CL (test code = 110 mmol/L 98-108 H 2032025472) CO2 TOTAL (test code = 28 mmol/L 23-31 6379555492) AGAP (test code = 2-16 3655215849) BUN (test code = 4 mg/dL 7-23 L 5439848171) GLUCOSE (test code = 56 mg/dL 70-110 L 9184522241) CREATININE (test code = 0.65 mg/dL 0.6-1.25 2752239908) CALCIUM (test code = 7.7 mg/dL 8.6-10.6 L 0196074270) eGFR (test code = mL/min/1.73m2 7706867808) LU (test code = LU) Association of [...] tests). Lab Interpretation Abnormal (test code = 08507-9) [facility] MET[facility]OLIC PANEL (NA, K, CL, CO2, GLUCOSE, BUN, CREATININE, CA)2022-04-27 15:50:29 Test Item Value Reference Range Interpretation Comments NA (test code = 143 mmol/L 135-145 7471919482) K (test code = 2.4 mmol/L 3.5-5.0 LL 2193065661) CL (test code = 110 mmol/L 98-108 H 5106132666) CO2 TOTAL (test code = 28 mmol/L 23-31 7444067095) AGAP (test code = 2-16 5007136985) BUN (test code = 4 mg/dL 7-23 L 9636535198) GLUCOSE (test code = 56 mg/dL 70-110 L 5140013720) CREATININE (test code = 0.65 mg/dL 0.60-1.25 4563974390) CALCIUM (test code = 7.7 mg/dL 8.6-10.6 L 2779568624) eGFR (test code = mL/min/1.73m2 6577011589) LU (test code = LU) Association of [...] tests). Lab Interpretation Abnormal (test code = 89296-2) [id number] 23:23:37 Test Item Value Reference Interpretation Comments Range TROPONIN I (test 0.007 ng/mL See_Comment [Automated code = 7836048497) message] The system which generated this result [...] biotin. Lab Interpretation Normal (test code = 09246-6) [facility] ([id number][facility]2022-[facility]-26 23:23:37 Test Item Value Reference Range Interpretation Comments NA (test code = 143 mmol/L 135-145 1013904210) K (test code = 2.3 mmol/L 3.5-5 LL 2353466034) CL (test code = 107 mmol/L 98-108 1029669635) CO2 TOTAL (test code = 27 mmol/L 23-31 0932830361) AGAP (test code = 2-16 0552098323) BUN (test code = 4 mg/dL 7-23 L 0901630589) GLUCOSE (test code = 86 mg/dL 70-110 3060394217) CREATININE (test code = 0.73 mg/dL 0.6-1.25 6193864246) TOTAL BILI (test code = 0.7 mg/dL 0.1-1.4 1826944987) CALCIUM (test code = 7.6 mg/dL 8.6-10.6 L 8143869018) T PROTEIN (test code = 6.5 g/dL 6.3-8.2 0463428393) ALBUMIN (test code = 2.7 g/dL 3.5-5 L 0500308004) ALK PHOS (test code = 96 U/L 34-122 0502776759) ALTv (test code = 13 U/L 5-50 1742-6) AST(SGOT) (test code = 22 U/L 13-40 1047396087) eGFR (test code = mL/min/1.73m2 6265851716) UL (test code = LU) Association of [...] tests). Lab Interpretation Abnormal (test code = 98836-5) [facility] [id number] 23:23:37 Test Item Value Reference Interpretation Comments Range TROPONIN I (test 0.007 ng/mL See_Comment [Automated code = 8775872111) message] The system which generated this result [...] biotin. Lab Interpretation Normal (test code = 73301-5) [facility]. METABOLIC PANEL ([id number])2022-04-26 23:23:37 Test Item Value Reference Range Interpretation Comments NA (test code = 143 mmol/L 135-145 8177316747) K (test code = 2.3 mmol/L 3.5-5.0 LL 6959024813) CL (test code = 107 mmol/L 98-108 2938472065) CO2 TOTAL (test code = 27 mmol/L 23-31 0188006261) AGAP (test code = 2-16 8198526267) BUN (test code = 4 mg/dL 7-23 L 4156162659) GLUCOSE (test code = 86 mg/dL 70-110 9627921760) CREATININE (test code = 0.73 mg/dL 0.60-1.25 3403790664) TOTAL BILI (test code = 0.7 mg/dL 0.1-1.9 0726154190) CALCIUM (test code = 7.6 mg/dL 8.6-10.6 L 2648019692) T PROTEIN (test code = 6.5 g/dL 6.3-8.2 7862654989) ALBUMIN (test code = 2.7 g/dL 3.5-5.0 L 1144954904) ALK PHOS (test code = 96 U/L 34-122 8649714328) ALTv (test code = 13 U/L 5-50 1742-6) AST(SGOT) (test code = 22 U/L 13-40 8026921668) eGFR (test code = mL/min/1.73m2 3451524105) LU (test code = LU) Association of [...] tests). Lab Interpretation Abnormal (test code = 92067-4) [facility] [id number] 23:23:37 Test Item Value Reference Interpretation Comments Range TROPONIN I (test 0.007 ng/mL See_Comment [Automated code = 1716635373) message] The system which generated this result [...] biotin. Lab Interpretation Normal (test code = 39528-5) [facility]. METABOLIC PANEL ([id number])2022-04-26 23:23:37 Test Item Value Reference Range Interpretation Comments NA (test code = 143 mmol/L 135-145 3269203460) K (test code = 2.3 mmol/L 3.5-5.0 LL 9479611351) CL (test code = 107 mmol/L 98-108 0828649884) CO2 TOTAL (test code = 27 mmol/L 23-31 0892864833) AGAP (test code = 2-16 4537104859) BUN (test code = 4 mg/dL 7-23 L 2968350648) GLUCOSE (test code = 86 mg/dL 70-110 5817734845) CREATININE (test code = 0.73 mg/dL 0.60-1.25 7204462677) TOTAL BILI (test code = 0.7 mg/dL 0.1-1.0 7431575702) CALCIUM (test code = 7.6 mg/dL 8.6-10.6 L 8117765514) T PROTEIN (test code = 6.5 g/dL 6.3-8.2 2981152071) ALBUMIN (test code = 2.7 g/dL 3.5-5.0 L 0303366609) ALK PHOS (test code = 96 U/L 34-122 9098759379) ALTv (test code = 13 U/L 5-50 1742-6) AST(SGOT) (test code = 22 U/L 13-40 3445786128) eGFR (test code = mL/min/1.73m2 4579818987) LU (test code = LU) Association of [...] tests). Lab Interpretation Abnormal (test code = 40690-8) [facility] [id number] 23:20:37 Test Item Value Reference Range Interpretation Comments NT-proBNP (test code 393 pg/mL See_Comment H [Autom ated = 5291486906) message] The system which generated this result transmitted reference range : <=125. The reference range was not used to interpret this result as normal/abnormal . LU (test code = LU) Biotin has been reported to cause a negative bias, interpret results relative to patient's use of biotin. Lab Interpretation Abnormal (test code = 46159-1) [facility] [id number] 23:20:37 Test Item Value Reference Range Interpretation Comments NT-proBNP (test code 393 pg/mL See_Comment H [Autom ated = 8891024752) message] The system which generated this result transmitted reference range : <=125. The reference range was not used to interpret this result as normal/abnormal . LU (test code = LU) Biotin has been reported to cause a negative bias, interpret results relative to patient's use of biotin. Lab Interpretation Abnormal (test code = 95557-1) [facility] [id number] 23:20:37 Test Item Value Reference Range Interpretation Comments NT-proBNP (test code 393 pg/mL See_Comment H [Autom ated = 8397086054) message] The system which generated this result transmitted reference range : <=125. The reference range was not used to interpret this result as normal/abnormal . LU (test code = LU) Biotin has been reported to cause a negative bias, interpret results relative to patient's use of biotin. Lab Interpretation Abnormal (test code = 16421-5) [facility] 23:11:39 Test Item Value Reference Range Interpretation Comments LIPASE (test code = 4717760640) 78 U/L 0-220 Lab Interpretation (test code = Normal 47991-2) [facility] 23:11:39 Test Item Value Reference Range Interpretation Comments LIPASE (test code = 1987789630) 78 U/L 0-220 Lab Interpretation (test code = Normal 23239-2) [facility] 23:11:39 Test Item Value Reference Range Interpretation Comments LIPASE (test code = 5152626280) 78 U/L 0-220 Lab Interpretation (test code = Normal 30954-1) [facility] [id number] 22:55:18 Test Item Value Reference Range Interpretation [...] RDW-SD (test code = 45.2 fL 38.5-51.6 39077-4) RDW-CV (test code = 14.3 % 12.1-15.4 788-0) PLT (test code = See_Comment [Automated 777-3) message] The sy stem which generated this result transmitted reference range : 150 - 328 10*3/ ?L. The reference r alisson was not used to interpret this result as normal/abnormal . MPV (test code = 10.5 fL 9.8-13 22203-0) NRBC/100 WBC (test See_Comment [Automat ed code = 0489975377) message] The system which generated this result transmitted reference range : 0.0 - 10.0 /100 WBCs. The refer ence range was not u sed to interpret th is result as normal/abnormal . NRBC x10^3 (test code See_Comment [Auto mated = 8940785589) message] The s ystem which generated this result transmitted reference range : 10*3/?L. The reference range was not used to interpret this result as normal/abnormal . GRAN MAT (NEUT) % 73.6 % (test code = 770-8) IMM GRAN % (test code 0.30 % = 8323080590) LYMPH % (test code = 20.6 % 736-9) MONO % (test code = 4.9 % 5905-5) EOS % (test code = 0.3 % 713-8) BASO % (test code = 0.3 % 706-2) GRAN MAT x10^3(ANC) 6.49 10*3/uL 1.99-6.95 (test code = 7530041827) IMM GRAN x10^3 (test 0.03 10*3/uL 0-0.06 code = 8941406120) LYMPH x10^3 (test code 1.82 10*3/uL 1.09-3.23 = 731-0) MONO x10^3 (test code 0.43 10*3/uL 0.36-1.02 = 742-7) EOS x10^3 (test code = 0.03 10*3/uL 0.06-0.53 L 711-2) BASO x10^3 (test code 0.03 10*3/uL 0.01-0.09 = 704-7) Lab Interpretation Abnormal (test code = 93957-3) [facility] WITH [id number] 22:55:18 Test Item Value Reference Range Interpretation Comments WBC (test code = See_Comment [Automated 1590-2) message] The sy stem which generated this [...] RDW-SD (test code = 45.2 fL 38.5-51.6 00339-9) RDW-CV (test code = 14.3 % 12.1-15.4 788-0) PLT (test code = See_Comment [Automated 777-3) message] The sy stem which generated this result transmitted reference range : 150 - 328 10*3/ ?L. The reference r alisson was not used to interpret this result as normal/abnormal . MPV (test code = 10.5 fL 9.8-13.0 17569-2) NRBC/100 WBC (test See_Comment [Automat ed code = [id number]) message] The system which generated this result transmitted reference range : 0.0 - 10.0 /100 WBCs. The refer ence range was not u sed to interpret th is result as normal/abnormal . NRBC x10^3 (test code <0.01 See_Comment [Auto mated = [id number]) message] The s ystem which generated this result transmitted reference range : 10*3/?L. The reference range was not used to interpret this result as normal/abnormal . GRAN MAT (NEUT) % 73.6 % (test code = 770-8) IMM GRAN % (test code 0.30 % = 6496572608) LYMPH % (test code = 20.6 % 736-9) MONO % (test code = 4.9 % 5905-5) EOS % (test code = 0.3 % 713-8) BASO % (test code = 0.3 % 706-2) GRAN MAT x10^3(ANC) 6.49 10*3/uL 1.99-6.95 (test code = 6369492808) IMM GRAN x10^3 (test 0.03 10*3/uL 0.00-0.06 code = 4821284757) LYMPH x10^3 (test code 1.82 10*3/uL 1.09-3.23 = 731-0) MONO x10^3 (test code 0.43 10*3/uL 0.36-1.02 = 742-7) EOS x10^3 (test code = 0.03 10*3/uL 0.06-0.53 L 711-2) BASO x10^3 (test code 0.03 10*3/uL 0.01-0.09 = 704-7) Lab Interpretation Abnormal (test code = 41372-1) [facility] WITH [id number] 22:55:18 Test Item Value Reference Range Interpretation [...] RDW-SD (test code = 45.2 fL 38.5-51.6 70357-4) RDW-CV (test code = 14.3 % 12.1-15.4 788-0) PLT (test code = See_Comment [Automated 777-3) message] The sy stem which generated this result transmitted reference range : 150 - 328 10*3/ ?L. The reference r alisson was not used to interpret this result as normal/abnormal . MPV (test code = 10.5 fL 9.8-13.0 97222-0) NRBC/100 WBC (test See_Comment [Automat ed code = 0984047780) message] The system which generated this result transmitted reference range : 0.0 - 10.0 /100 WBCs. The refer ence range was not u sed to interpret th is result as normal/abnormal . NRBC x10^3 (test code <0.01 See_Comment [Auto mated = 4401132007) message] The s ystem which generated this result transmitted reference range : 10*3/?L. The reference range was not used to interpret this result as normal/abnormal . GRAN MAT (NEUT) % 73.6 % (test code = 770-8) IMM GRAN % (test code 0.30 % = 5509295204) LYMPH % (test code = 20.6 % 736-9) MONO % (test code = 4.9 % 5905-5) EOS % (test code = 0.3 % 713-8) BASO % (test code = 0.3 % 706-2) GRAN MAT x10^3(ANC) 6.49 10*3/uL 1.99-6.95 (test code = 3847547656) IMM GRAN x10^3 (test 0.03 10*3/uL 0.00-0.06 code = 9065709180) LYMPH x10^3 (test code 1.82 10*3/uL 1.09-3.23 = 731-0) MONO x10^3 (test code 0.43 10*3/uL 0.36-1.02 = 742-7) EOS x10^3 (test code = 0.03 10*3/uL 0.06-0.53 L 711-2) BASO x10^3 (test code 0.03 10*3/uL 0.01-0.09 = 704-7) Lab Interpretation Abnormal (test code = 38405-2) [facility] [id number] 16:42:42 Test Item Value Reference Range Interpretation Comments Case Report (test code Surgical Pathology ? ? = 7497258905) ?Case: [id number] ? Authorizing Provider: ?Negrito Shaver MD ? Collected: ? 03/12/2022 1050 ?Ordering Location: ? ? [facility] ? ? ?Received: ?03/12/2022 1656 ? [facility] ?Pathologist: ? Carolin Ruiz MD ? Specimens: ? A) - APPENDIX ? B) - HERNIA SAC, RIGHT INGUINAL, RIGHT INGUINAL HERNIA SAC ? Final Diagnosis (test v0zgaQWgWTAbd9yxYRYxvX code = 7959648988) FuZzEwMzNcZnRuYmpcdWMx IHtccnRmMVxhbnNpXGRlZm ljwqoxBACeFSF4mrAlBDLj WQT4QCT6QsGcMTQqRyi2SL AmLI9yeOczrKj5wXgqCGKg cvN0kPRuBMkrf5vaLIF1c7 mkxejzRNBgENbvYv0gwKXl rYjfIkMnVFIqXRd9hS22TK DbeU2foNDaRUhvtcSkAuJ5 ONoaCVKrZaC7LEVmdTBwNG F2pKzgTQBjanodIcS4XMlo CYCcsarsHGy7BDkjYCUgsK F9MQCbhMTbS1VyQUSzIM8a dvs9NIS8JYrqBQAjCmE6SO NucQXdOGBffWupJLnnx923 YYX1AgLvUIHzleNtaPtosR 3vKwRoEQfaGFSmDC6bBZGU KB6YMXavCLIANTCNXIWQGT 9NWTpccGFyICAgICAtIEJF TklHTiBBUFBFTkRJWCBUSV DHJAPqI8pFGTJSLWECWXpc V57LA3DMSQbVClEBRyMOLU MLCCENPP7SLRHBEOquLCOI EK0RJOMVPLAADMUwaAWsIC PrmvJGZpWxF5pkOrXvbBQf SEVSTklBIFNBQywgRVhDSV ACW388QDQcnni+LJ9mdwg+ VG9iKMVEWnnGGhYEYGREPB hNJImFSKEVJD4OAPUSBSLW J6EIFILEE0FkEBtZO2IZVB mFQHgkAfZRG0QLMCKiH88R Y7ECTHsQUlmdABEwadTaDF GkWYVhA77CW6uUCKPWGYLE WYNLPTrUXm8RKQTMEDImqP UkBYKdJ2JzZJSiGRHzzfko czIyIExpbmRzYXkgQmlnaG QaLIXUSqAyZZ9wXM6iTKSy MLJ7SbCdDBNOPZCtmhcycd WjTBBbzh68PRM1JhPri1P6 RIAbReAePFDtMX1zgLqpHS QgUZ3vHMEvL5mvxG2ukvm7 IlZwMLLwPfZ3CGUfzkI0Lx w1TDYkNQxgz1vna0SgB9Su aVYrnXt2x0poIUNbNjQ1jX QlRGzvG4cgduRsyXJkVGQc YKd0qYfbNwNcDLYjv7pios BcZmNoYXJzZXQwIENhbGli tbo0nQ61VWLdtQ0ipJKkRQ iqeeJzAyM2DAsrYBEjZlG5 DVBjmRPyHMUxV2fpAKWmFV hlGRHhKCupnPFwERO9oZsl v9L9sYTiuTDabJzeLyMzVy CeLFVEi0UkPDn7jGmfM7Cg NDPyGcQ4yCQrJFNvQKozJS AiHNXghpV6nV77CZybpaS8 cTRtb4Fec40xq105cM2nuC ZyJOY1VOWeQKDqmIDrWJEb QBV7QVKpsHPdY9vfJFCzST 0wsyljOPjqWModEDEseEI6 GEJosOArO1RtZZHsRRajYU Divrr3PpHwZx4zmZXoaSak YCkpz9sln5lpeDUwPyq4PA OkJfVsKwqoCXfve8Utb5cv ORAvjh4dKFJ2wUDnoOwor2 G7mQRjZJDnbMGoqyZsDRYp IvH8JYvmVW0vcv79HGXtEQ B4ik6luZGlxEchznXciTBp SGmoC1VyQPBdq892NGSeE0 YiQDYpr7C5yrYkTcSyHFQf jWH6jrS5STErINn1qNZjtt A4idIilWYdK9ckcJ6rGFOm UZ6wxycgq7kaSVwzTFjfMS FsyXX3brE6YUFfjGGfE2Mp iD3eNLEjQWdrBMDhjve4Tx ElCi9npVBobGhfNHfeJhld YWdlXHBnbmNvbnRccGduZG VjXHBsYWluXHBsYWluXGYw DMCfWyClqDsljWbwvB8gTs PiCkTnISelUW5zZAJsF6ku vZBwKJWxDZEpZ5faSkZtrB 9jaFxmMVxjZjJcZnMyMFxw YXIgSSBoYXZlIHBlcnNvbm YhwBdjlfK6lWJ1RAIwNPop PVCxTGZnyYFpdm5tcJfkBH QcAV5qEHKhhmVzWHuelKzw QYgsVDX4GDArvPTkcRUdnN FkZSBieSByZXNpZGVudHMs KPZuoHnkt8Era8OqkXC0fQ 9lh6qvo7VuZJJraWG6RX21 wpT6tP0wUUAsNM3bCVSbMV 4diPUsqKAsEWKlu97buCgw cyByZXBvcnQuXHBsYWluXG YyXGZzMjhcbGFuZzEwMzNc aGljaFxmMlxkYmNoXGYyXG htZ3ljCsQmJoCuPEmtVLN7 nBptsdGkPBuok9ZoO9VaKn AwMFxhbnNpXGRlZmxhbmcx EOVzLLK4hyJeIHWpNIloYN AuRRahMi7jmAIelTsdHtMm NAAjx2soopJKIZtgArZgW9 31XYNbGAhtw9iqq4TtYKGv fFRvn6P3CPZPqfzxeCo0wR haB03jq8Y5GdrsI4klPPYs CEMjT7RnDX6bLQTmAul8LL V4PTS5VRPvMXMlK0KyLZ1d SHUqjQPcCEm6z5iczUwqJF XvXPQ7x8bgECroxrW9MP6w hi1ccAk0g9sfucUpJSYiCO TpiDAKLRWsL4IgjWbePo7x oNl8aXipZibfVLH4Rin6TA 6cla00kvl6nNosMZFhtdvd DpA0JAbqVQAqxcukBXx4KM qgKFHejDE1IVGdjUIeU5Xc DBTdUE1dqco7PGE5PUqjVS WwSiM7IVXzzUTyEJYhxVll ILkey218VIQ5PdJnNR0dI6 Grj8I6mP1zgCBbGCKmtDBz PzFvGQSpya9xsXIcMNbyx1 ArN57coSA7OShdl6foWA8n EeM3ltJfNQswl6jtsY6bYx C6SIzqTH8orl07MZBdFGN9 ge6hzMBjeInfrgTdkBSzGZ ixC5VeTZUex408LIRyR8Hj CBGlx4Q6cjRcGwNzUTBgqC M1fnC1VUDeZEc9jLIttbB5 yuNbjDYoA1dniB3vEKZfTL 4bjwcdn9imPFnkWFryLKJr bGH1mqA3UDUvpSCzY9MjzU 6xVAGfZXnvMOJborg5YfCy Du6arEJgfDtnNJgcJxliTS dlXHBnbmNvbnRccGduZGVj XHBsYWluXHBsYWluXGYwXG UrHeXnsANsUXyni8CdwxLa cYkvKCYgSUn3jhPubtsqrW p3iLPtmEzmWDVsrPzxqX4u IeEaMwPlNZywYO4vMDKeR9 ftuAUbSWZyBDZtU8cdQhYx vM9arCqzXXejHzMzGwCmDK xsdHJjaFxwYXIgSSBoYXZl SITvsqMgelKlbQmcpvZ0gO M5EFQjLPdoJTZbAHZshZAu wu2nmBdhJUVoES7lRQEduv SdHWnolKqlLCuoPGG5GECl bWVudHMgbWFkZSBieSByZX FeUKPpbCDzOXMghSylc0Eq f3EsnGQ0eH2zd1msp5IoOA EotZY8EJ50ofJ5dY3xLKVt AO1gEUZwPX0vmEDrqUVzEW Slz45uoZccefDhKSWddyQg XHBsYWluXGYxXGZzMjBcbG FuZzEwMzNcaGljaFxmMVxk HkMzEBMdFHytC8kuZkIkM3 YyXGZzMjBccGFyXHBhclxw IHXfv1LdEkTen1qtQWoqg8 kvwHe0AOcfzZLtsmfqUIhj vkH7ZATsNDxxGBLiJWClVA RcbGFuZzEwMzNcaGljaFxm CNfyFwFzQMPiJGnhI1dtSz LjJ9ToNHOhUOIttWQrM9bb POC8hC2op5pcx9CloESkBi Sjc0ykhlCdNRBtyPBxprMb bDPnWHAay9UjKLPxZKLtIC YXNp4MWTQswAXuO9a2aLAU OF4voEJoSUBoGPPaE8NkWk RHnhUgo6G8FCBnbTQeRCAE SVUsdXUfI5a4sHlaMMnuZm g8WdYrgSdqtC4pMlBqZjDc GKysJF8vPWXzE7dlpPKnZW ZfEDVfE0ghQgZvdT9ahKiz MVxjZjJcZnMyMFxsdHJjaF ekWZP6lG== Clinical Information RIGHT INGUINAL HERNIA (test code = 7450918287) Gross Description (test d3xtwWIoLAUhfBSVKZXmK8 code = 3069776139) yqnuYlXFLvoOVaR8Yvbaui CSeqIK4iEG8kiVmhzVZtqH NbNW0YPYTwTvYpWRExiZSu jkImSiZlGYQulIGcsME6OK YgXH2gsgnkBYgwRSexYDRw quZ8JYBuxPJoI6PpDSZyVA 2vhumsKMA6LCnmfF4uoiYO UfmzFk8rfJUwnFxiSyQjEf NoYXJzZXQwXGZuaWwgQXJp EBq5rL8MRhjuXBC4OKMAJu kxENPyXW3Mb9wqMGBmrQZc IJH3VAtybMZmRCQxGKHfJE k9YSHmILxycWPqXU5kjEoj PrayiSdec3QozSGtASjtNL IjTNUgEIydRLQwPA7DMzJt FNS9EYmxARpwFUp0YQr9LO 9WUyAiICAxODgyOTUyMSIg KSq9ZXhhBH6YPYZ6MoN0TB X9SlyrHAEcHnhdDEs9QCGi XFxmIEFyaWFsIFxcZnMgMT QiYPwbgUFtMG7gdTdtpLLq blxmczIwIFNQRUNJTUVOIE KcqHTlFA3RQALhLWrtUOKk pSXSGTO9KN3tKGUOAmvcaM BvHEByzCtjTXzqqY0tMO5Z JRn1jhDgLIJuDoVcF7TdN0 sfUU2bDSGjfsZeGGHpiSZf IZYewmZrv2AtLZyjttSjCJ JlbGVkIHdpdGggdGhlIHBh pNhjuoHbfxNpWN2xGZXBMO JziU8qFTYuXlQhsVVeOYu0 ZstbPZ4qPUYbubSnx6LnQT 9mIGFuIGludGFjdCwgdmVy gOugh6QdNKWzbWMmLYe4BD r4UzPpE91ewD2crQBvN2Hd DBbzPW72ILExMUMjyMFuqa CejKUePPNjuptgq3e6dMJa yOVmE3oxTJIrJLJfRQUkQH 6ybVveKC2jNIGpX4W6dZPl sLruYVCsENCjE8Fwy29dwD NrG3raQpKPrRVwz5Awa3Nh JXgqIWZhej1rnY3xVICdTZ NvfbUwv18hdmWpfNd8CMBd m686gJP4sKAmTDIybnebs9 TzMUX8VARmBYrlUsIGaYNk f8AkQ6tcFO0dyQSes0OwvL DmjYdzl6PoiXrobjHcPTKz UADcapBazTH1AZ7odPriso MksAYfs0GiCuRpXQMjCE3e KBDfyVDhFF0sykDlW6eeFq Kepj4xVWQeyzEerT18LXPt NSBjbSBpbiBkaWFtZXRlci F2tGX9PSXdojYdnC4tTOYb E05qxT11jsJiqA15loUpt2 Gnx63wjTB3GI5qVaNpk66o LhHvNRnwjEF0RHBqHMsiPG 8zTUCkesCsfqJ5oQ5hmoMj xyTgG4Xpe8IvcATuEALcsV ggySYsBrFXXRW3zC4ndyI3 byBpbmNsdWRlIHRoZSBlbi EwKDGmFVMca9OhjYrcwmWj RJIyrP5lRPpjr9CbNYBazZ UpLCByZXByZXNlbnRhdGl2 TCVguv6hhh4yEXW5mT8dNI UsuoWoMqktLVJ9GXDikCsv OKUeKCYoxZKtcSA5AVDqxQ 4kKOXoUAdhyUvxnC6kDVSy G58nm3GUf1YbLSGfPCktg2 jnuMxjg7MmsTXcGYwqPLPl sYQtAAajlL5qVbLeh0nnsQ v7TJtxqrM7ERXdey5NApdh NhmxhIcvs1PmxCFzEEekLV RvQBJuAClqCFHyTF2XEaQh TPK1ZJpoIMngBDo9HJm9BE 3TVyNfCXVsBYwuZXg1FJIs DJb1HAtvAT2LAXQ1NsO5XM Z3KHMbGKWgQwqxUVg3VFAs XFxmIEFyaWFsIFxcZnMgMT AxOFmbhKZqDW6tiZxlleCi IFNQRUNJTUVOIEJccGFyIA 4XFOSlQNxuTIWpvMSLMUP7 BZ6hBHNJRfvjgQHkUTQunQ htUAfkfD6wBR7BTAd1yiZu PAAkAgPeS8IwB5czHT5sIh BpcyByZWNlaXZlZCBpbiBm d2UtBVsvgbWkYNXlkHRqCN dpdGggdGhlIHBhdGllbnQn ueWwYM9dCOYHWCHlnK1xMN CnGlHkuWosoZNboue3hX2g rSLiQEGxzSImc9QbNvemLG 3dHPBqgkYzf8TgQF5yWDSp fLUyZWIoqqkct8DfL9SeRG Hoi32yhIY3nQQaxZDrLpEg R75srkBnLCNxPHD3LXDpRZ R6NQJsGrXooGcfb4bvH2xg yFWao0QytDIwrEunc5JqwB lvbmVkIHRvIHJldmVhbCB0 NV2nrLxcrbEzSS3rewOnl1 ZwIOL0qYXnkNOnIMKsmw4p FXRqzOQxk0KzeWB4qRGbRI YhU1Ory98wAIXlMPEnnJPg xGZ1NYLvpE6uSnNpLTIozi KCDrxeYJVgMFoFWVE6RHNx amVzdGthLCBQQSAoQVNDUC kNClxwbGFpblxlcGljTmVz vIChCnYovEeesS55VXNccX KuDTO0BB8iMPToqoeaZGMb XXNyOAC1CEwvrS39gQLrSK MwGCFamIVbhB7AZOAfOXA9 DNrzqP98jPTxVR9WEUXgYW K9LQBpgXDxUNX3BB1ptA1C fQ== Disclaimer (test code = p2aihPSxTRLvj8qaIDEdwQ 7067824064) FuZzEwMzNcZnRuYmpcdWMx FDrupiXlPSnmg6DoW6HcSh AwMFxhbnNpXGRlZmxhbmcx BUXdATP9sjIoXXGoIScyDX JtSYvtLy6jbLZouGtcWiRv KRUeu4wvbvGTRBerFeNiN6 41JCYtEEujq3upq6YjYPBy yKIah7I2YQPXqfjgtWx8lX xlQ85qm2A6CntqK0chBXUb NJQrN0DoDT1oIWOoZvn4EZ M6IXX3ONBrOMUeS5CbZO3k IENarVHkWPy6w2bjwFkfBU FaZLS6d6zpANcwrqTqLC9b wg6ydHf7w1ueazCgKVTvCY HxcJSJQPQrB0HycTufAk8y oBl3mFzyMnfbVAI1Ryr5CJ 4gxi87sgq0dZjhSCErzqcg EbL6KQzoZNPikiegOIw1CL zzFOTorIQ4FQJyoUXvT4Ch KYSzWP2jral8HXH4NManYW IfEdM0MGWbgYDvYZDroKhb ULnqr277JSQ4OpMqRZ1dC0 Dko1Y2xV1mcRGhNCJcdEYm WhAiTNXygh9ubEReKWnam8 UcCAS2nkM3mRNlvOEnEAZh PW80Kpjlw8UgLieck6WtP2 2seJM4LFgtz3lxCL1lEcQ9 zcSlLVbsx7rngO2qWjX8QV phIN3eMX1aOIRphH2idrsx XHBnYnJkcmhlYWRccGdicm EhTd2kcOkuQEB3ZTbaU9gj cX8uPiP5PKoqU8duuH1iFO d9JGiihXI0ICVkzF3tAL4b mrysv1dqMCiqPYfeCUKbao D2abL4NCVxxSIdF0WnlK8g JCRzUQ7gmqkkx2kgEIK1WZ abSDLdWIO2IyTzPWLwx5Bd mya2BjRoh8HbfCHdTLavB7 7tg778LLUtagIgE3bbaXXa ebjbkFZqtjvhUFqserD8XJ IlzxPpb6FhUAUvPXJ0CYbi WJeoiTLsZYYojYjyt1abZ9 RscGFyXHBsYWluXGYxXGZz MjBcbGFuZzEwMzNcaGljaF zeABwdXnZfQXXjJYusK4tm MoPeE1RrMJQdGwIfyIYpO7 ggVGhpcyByZXBvcnQgbWF5 PXjlW6s4JEBoarIklCm1xh OcJaOoTAOoYYR5DQlhaASc ZQEza1VkmrzzzZFaXu7jtE KjFHPooV7tNOQgVFEtBEnp VO4igTq5QMLNfWWewWEnNt SYORMyCX90ybNdZGMNjmhj f8V9PGeoGLUyi8EgmGWpD9 xkj9UbXSXmt65bTF7xq2W1 h2zeAEG3CV3pw9MpRKTgkN ManFHwBVZsi2Cezwiny6Tq SANogtCtf1KoPYXccpHkcL CvVIUmtpSeqr5rejUgKATz BVZuJ6DtltaanGvsmiZfOL Cddg3auuIlFJH6LWYJBOFi OAIlc1LpzP8pzZKIING0xF Rxqf3fjsYVkIEqMSZvtk20 USEgJY4sY6ieXSDmRWIxzr WgwGZkk3WfTRNrkJD7yRQw GN1CLxBQr99oCQYcZRPDbf RaZZSfeIoopMR9shG2yP8a IChGREEpLlx+IFRoZSBGRE BgVZ3rlvApt0DlysPvbMgf JOYlhLRks4DwsZZda2KfnP esc3ZbtGTqrGNoCS0eTMCl clxwYXIgVVRNQiBMYWJvcm S3u0EoEIJsSVYtMHQ3vZan enk3XFAvcC3eEXSzU6oydi waLUieHZZjy6PxkE1kfMZH hTAgu9YkgBFgaLEQzBJpFN 3cpcBcKWnEZOhSDQN6ncEb LDJpz0RhRNupQ4xjI62gtZ jesWh9yFD4CNV8kU3wVfk+ IFxwYXJccGFyIEFwcHJvcH SoKTMxtEizwxYuD6InefSk yH5ucDGhenBhJO1sVF3lQ6 O3oKDbHFAennDid4ceFVjh dmUgYmVlbiByZXZpZXdlZC Puc8ZmVAjrBNA5VDimkgGx bmNsdWRpbmcgSCZFLCBTcG WpyBPoOPK7WNaeeoEciyVv YL6ltJ8mbEkvsC6vtBXrlC J3xixdDZYeJERdiYcpWJYv XE5noOLwGUOeqoXOjPtceD KmnX2yU0WcTWBtQCXwmw5g KFFirU7fYMnvp7AnnosbZR ViDOHdTJWotnQzjf9uKVCx kMRXJF4FTLelgJCaa1Lmez BqK5pTSIS0YVOdVbAjEjek JUTswOYxqNMzZIEcpo76WV KeyC4gnNwpVORzhH1zfL7d xGrxkW5wZaYgCeMyFQvkAK 9lUZFyS3wxyWSlDNOaDKUf B6csLpOsfI5pzVxiLEnhGz TfBbVwJTwhLCU5eS== Embedded Images (test code = 9305553611) [facility] This is a pre-surgical type and screen. ONCE [id number] 17:52:02 Test Item Value Reference Range Interpretation Comments ABO & RH (test AB POSITIVE Performed at [facility] code = 20) Laboratory Serv [facility] Blood [facility] [place] [address] s [id number] Free: [phone] A No. [id number] IAT (test code = Negative Performed a t [facility] 1185) Laboratory Serv [facility] Blood [facility] [address] [place] [address] s [id number] Free: [phone] A No. [id number] [facility] 23:13:17 Test Item Value Reference Range Interpretation Comments PALB (test code = 10628-8) 20.2 mg/dL 18.0-45.0 Lab Interpretation (test code = Normal 37965-7) [facility] (29224[facility] (ALB,T.PRO,BILI T,BU/BC,ALT,AST,ALK PHOS)2022-02-04 23:05:58 Test Item Value Reference Range Interpretation Comments TOTAL BILI (test code = 0459419316) 0.4 mg/dL 0.1-1.1 BILI UNCON (test code = 4023390595) 0.2 mg/dL 0.1-1.1 BILI CONJ (test code = 7535345045) 0.0 mg/dL 0.0-0.3 T PROTEIN (test code = 3921577309) 7.7 g/dL 6.3-8.2 ALBUMIN (test code = 4200124079) 3.4 g/dL 3.5-5.0 L ALK PHOS (test code = 9150996214) 65 U/L 34-122 ALTv (test code = 1742-6) 11 U/L 5-50 AST(SGOT) (test code = 8590226679) 23 U/L 13-40 Lab Interpretation (test code = Abnormal 18095-2) [facility] [id number] 03:38:00 Test Item Value Reference Range Interpretation Comments AB HEPATITIS A IGM NEGATIVE (test code = HAVMAB) AG HEPATITIS B NEGATIVE SCREEN NEGATIVE SURFACE (test code = HBSAG) AB HEPATITIS B CORE NEGATIVE IGM (test code = HBCMAB) AB HEPATITIS C (test <0.1 RATIO <0.8 S/C RAT ION 0.0 - code = HCVAB) 0.9 NEGATIVE <0.8INDETERMINA TE 0.8 - 0.9POSITI VE >0.9 [id number] 16:06:00 Test Item Value Reference Range Interpretation Comments SURG (test code = SURG) RUN DATE: 10/07/20 [facility] PAGE 1 RUN TIME: 1607 Specimen Inquiry RUN USER: INTERFACE PATIENT: FIONA SANCHES JR LOC: WINTER U #: [id number] AGE/SX: 35/M ROOM: WINTER RE10/06/20REG DR: Sreekanth Garcia MD : 84 BED: 3 DIS: STATUS: ADM Arcadio TLOC: SPEC #: [id number] RECD: 10/06/20 STATUS: ELZA REQ #: [id number] MIRIAM: 10/06/[address] [facility] [address]: Sreekanth Garcia MD ENTERED: 10/06/20 SP TYPE: SURG OTHR DR: DOES_NOT KNOW No Primary or Family Physician Juan Mcbride MD, Jignesh P MDORDERED: SURG PATH LVL 4 COPIES TO: DOES_NOT KNOW No Primary [place] [address] [address] [email or web address] [address] [place] [address] Arnulfo Cormier MD [address] [place] [address] HISTOLOGY: TISSUE ID BLK PCS KANWAL LEV PROCEDURE DISPOSITION ____ ___ ___ ___ ESOPHAGUS, NOS A 1 2 PROCEDURES: SURG PATH LVL 4 (10/06/20) TISSUES: A. ESOPHAGUS, NOS - ESOPHAGUS BIOPSY CLINICAL HISTORY ESOPHAGEAL FOOD BOLUS, STRICTURE V DYSMOTILITY CONTINUED ON NEXT PAGE RUN DATE: 10/07/20 [facility] - LAB PAGE 2 RUN TIME: 1607 Specimen Inquiry RUN USER: INTERFACE SPEC #: [facility]:[id number] PATIENT: FIONA SANCHES JR #[id number] (Continued) CPT CODES CPT CODE(S): 80684 , , , , , , FINAL DIAGNOSIS Esophagus, biopsy: ACUTE ESOPHAGITIS WITH CANDIDIASIS NEGATIVE FOR INTESTINAL METAPLASIA, DYSPLASIA, OR MALIGNANCY GROSS DESCRIPTION Esophagus biopsy. Received in formalin are multiple minute fragments of suarez soft tissue, 0.1 - 0.3 cm. The specimen is filtered in a teabag and entirely submitted as A. ba/nr Grossing performed at [facility], [address] [place] [address], [address], [place] [address]. Local Government Legislator: Abner Steward M.D. MICROSCOPIC DESCRIPTION Esophagus biopsy. [...] indicativ e of the presence code = PCODZ48DT) ofSARS-CoV -2 RNA, clinical correlation wit h [...] indicativ e of the presence code = WLNFW37HI) ofSARS-CoV -2 RNA, clinical correlation wit h [...] for the identification of SARS-CoV-2 RNA usingthe FaceRig M2000 Sy stem under the FDA Emergen cy UseAuthorizatio n. The testing is perf ormed by personneltraine d in the procedures for the FaceRig M2000 molecular diagnostic SARS-CoV-2 assa y in vitro. CBC W/AUTO [id number] 13:10:00 Test Item Value Reference Range Interpretation [...] NT WITH AUTO DIFFERENTI AL. CBC W/AUTO [id number] 13:10:00 Test Item Value Reference Range Interpretation [...] CONSISTA NT WITH AUTO DIFFERENTI AL. RBC [id number] 13:10:00 Test Item Value Reference Range Interpretation Comments PLATELET ESTIMATE DECREASED THOUSAND ADEQUATE PLAT ELET COUNT (test code = REVIEWED AND PLTEST) VERIFIED. PLATELET MORPHOLOGY NORMAL (test code = PLTMORPH) CBC W/AUTO [id number] 13:10:00 Test Item Value Reference Range Interpretation [...] NT WITH AUTO DIFFERENTI AL. COMPREHENSIVE METABOLIC [id number] 11:48:00 Test Item Value Reference Range Interpretation [...] TOTAL (test code = ALKP) CBC W/AUTO [id number] 11:33:00 Test Item Value Reference Range Interpretation [...] REQUIRED (test code = DIFF/SCN CRITERIA MDIFF) [id number] 04:59:00 Test Item Value Reference Range Interpretation Comments AMMONIA (test code = AMM) 56 mcMOL/L 11-32 H LACTIC [id number] 04:59:00 Test Item Value Reference Range Interpretation Comments LACTIC ACID (test code = LACT) 0.7 mmol/L 0.4-2.0 N GLUCOSE BEDSIDE [id number] 20:35:00 Test Item Value Reference Range Interpretation Comments GLUCOSE BEDSIDE TESTING (test code 109 mg/dL 70-110 N = GLUBED) GLUCOSE BEDSIDE [id number] 17:10:00 Test Item Value Reference Range Interpretation Comments GLUCOSE BEDSIDE TESTING (test code 105 mg/dL 70-110 N = GLUBED) - US ABDOMEN [id number] 16:39:00 [facility] 1985 Sex: M Name:FIONA SANCHES JR [facility] : 1985 Age/S: 35 / M [address] Unit #: [id number] Loc: [place] [address] Phys: Matilda Kirk PA-C Acct: [id number] Dis Date: Status: ADM IN PHONE #: [phone] Exam Date: 10/06/2020 4821 FAX #: Reason: elevated lfts, evaluate for cirrhosis EXAMS: CPT: [id number] US ABDOMEN LTD 07757 RIGHT UPPER QUADRANT ULTRASOUND. CLINICAL HISTORY: Elevated liver fun ction tests, evaluate for cirrhosis COMPARISON: CT chest [...] Signed Report (CONTINUED) Name: FIONA SANCHES JR [place] : 1985 Age/S: 35 / M [address] Unit #: [id number] Loc: [place] [address] Phys: Matilda Kirk PA-C Acct: [id number] Dis Date: Status: ADM IN PHONE #: [phone] Exam Date: 10/06/2020 1518 FAX #: Reason: elevated lfts, evaluate for cirrhosis EXAMS: CPT: [id number] US ABDOMEN LTD 58408 (Continued) CC: Sreekanth Garcia MD; Matilda Kirk Technologist: Rae Eaton [facility] Date/Time: 10/06/2020 (1639) [id number] PAGE 2 Signed Report Name: FIONA SANCHES JR [place] : 1985 Age/S: 35 / M [address] Unit #: [id number] Loc: [place] [address] Phys: Matilda Kirk PA-C Acct: [id number] Dis Date:Status: ADM IN PHONE #: [phone] Exam Date: 10/06/2020 1515 FAX #: Reason: elevated lfts, evaluate for cirrhosis EXAMS: CPT: [id number] US ABDOMEN LTD [address]74 (Continued) Orig Print D/T: S: 10/06/2020 (1643) [...] 92 mg/dL 70-110 N GLUBED) GLUCOSE BEDSIDE [id number] 13:37:00 Test Item Value Reference Range Interpretation Comments GLUCOSE BEDSIDE TESTING (test code = 58 mg/dL 70-110 L GLUBED) CREATINE KINASE (CK)2020-10-06 11:26:00 Test Item Value Reference Range Interpretation Comments CREATINE KINASE (CK) (test code = 287 Unit/L 26-192 H CK) [id number] 11:26:00 Test Item Value Reference Range Interpretation Comments AMYLASE (test code = JOSE CARLOS) 120 Unit/L 25-115 H [id number] 11:26:00 Test Item Value Reference Range Interpretation Comments LIPASE (test code = LIP) 112 Unit/L 114-286 L CBC W/AUTO [id number] 09:58:00 Test Item Value Reference Range Interpretation [...] DIFF/SCN CRITERIA (test code = MDIFF) WBC [id number] 09:58:00 Test Item Value Reference Range Interpretation [...] NORMAL (test code = PLTMORPH) CBC W/AUTO [id number] 09:55:00 Test Item Value Reference Range Interpretation [...] DIFF/SCN CRITERIA (test code = MDIFF) WBC [id number] 09:55:00 Test Item Value Reference Range Interpretation Comments SEGMENTED NEUTROPHILS (test code = SEG) % 40-75 LYMPHOCYTE (test code = LYMPH) % 12.6-43.5 CBC W/AUTO [id number] 09:55:00 Test Item Value Reference Range Interpretation [...] DIFF/SCN CRITERIA (test code = MDIFF) WBC [id number] 09:55:00 Test Item Value Reference Range Interpretation Comments SEGMENTED NEUTROPHILS (test code = SEG) % 40-75 LYMPHOCYTE (test code = LYMPH) % 12.6-43.5 COMPREHENSIVE METABOLIC [id number] 09:14:00 Test Item Value Reference Range Interpretation [...] TOTAL (test code = ALKP) CBC W/AUTO [id number] 09:02:00 Test Item Value Reference Range Interpretation [...] CRITERIA (test code = MDIFF) GLUCOSE BEDSIDE [id number] 06:41:00 Test Item Value Reference Range Interpretation Comments GLUCOSE BEDSIDE TESTING (test code = 65 mg/dL 70-110 L GLUBED) COVID 19 INHOUSE [id number] 05:40:00 Test Item Value Reference Range Interpretation Comments COVID 19 INHOUSE AG NEGATIVE Negative Per manu facturer, (test code = negative result s should [id number]) be treated aspr esumptive and, if inconsi [...] co nsistent with COVID-19. - CT CHEST [id number] 03:30:00 [facility] : 1985 Sex: M Name:FIONA SANCHES JR [facility] : 1985 Age/S: 35 / M [address] Unit #: [id number]: [place] [address] Phys: Scott Person MD Acct: [id number] Dis Date: Status: REG ER PHONE #:[phone] Exam Date: 10/06/2020 0246 FAX #: Reason: possible esophageal pneumatosis EXAMS: CPT: [id number] CT CHEST W/CONTRAST 50096 DICTATION LOCATION: H48 HISTORY: Male, 35 years [...] JR : 1985 Age/S: 35 / M [address] Unit #: [id number] Loc: [place] [address] Phys: Phil Person Acct: [id number] Dis Date: Status: REG ER PHONE #: [phone] Exam Date: 10/06/2020 0245 FAX #: Reason: possible esophageal pneumatosis EXAMS: CPT: [id number] CT CHEST W/CONTRAST 77414 (Continued) (i.e. scleroderma or dermatomyositis). Infiltrative neoplasm is included differential but I do notidentify a distinct mass. 2. No evidence for esophageal pneumatosis or pneumomediastinum. 3. Multi lobar groundglass interstitial pneumonia. Commonly reported imaging features of COVID- 19 pneumonia arepresent. Other processes such as aspiration pneumonia, influenza pneumonia and organizing pneumonia,as seen with drug toxicity and connective tissue disease, can cause a similar imaging pattern. at 0330 Reported and signed by: Alyx aguilar MD CC: Technologist:Valentine Momin, RT(R)(CT); CTDI: DLP: Trnscb Date/Time: 10/06/2020 (329) Young Orig Print D/T: S: 10/06/2020 (332) PAGE 2 Signed Report- CT NECK [id number] 03:11:00 [facility] : 1985 Sex: M Name:FIONA SANCHES JR [place] : 1985 Age/S: 35 / M [address] Unit #: [id number]: [place] [address] Phys: Scott Person MD Acct: [id number] Dis Date: Status: REG ER PHONE #: [phone] Exam Date: 10/06/2020 0250 FAX #: Reason: possible esophageal pneumatosis EXAMS: CPT:[id number] CT NECK W/CONTRAST 62853 EXAM: - CT NECK W/CONTRAST LOCATION: H57 [...] Signed Report (CONTINUED) Name: FIONA SANCHES JR [place] : 1985 Age/S: 35 / M [address] Unit #: [id number] Loc: [place] [address] Phys: Scott Person MD Acct: [id number] Dis Date: Status: REG ER PHONE #: [phone] Exam Date: 10/06/2020 0250 FAX #: Reason: possible esophageal pneumatosis EXAMS: CPT: [id number] CT NECK W/CONTRAST 37351 (Continued) CC: Technologist:Valentine Momin, RT(R)(CT); CTDI: DLP: [...]
--- NOTE | 2022-09-04 10:29 | RAD REPORT ---
EXAM DESCRIPTION: RAD - Abdomen 1 View (KUB) - 09/04/2022 10:21 am CLINICAL HISTORY: ABD PAIN COMPARISON: Abdomen Pelvis Wo Contrast dated 06/19/2022 FINDINGS: Nonobstructive bowel gas pattern. No acute osseous abnormality.Visualized lungs are unrema rkable.No abnormal calcifications. Feeding tube overlies the epigastrium. Chain sutures overlie the c entral abdomen. Contrast present within the colon. IMPRESSION: Nonobstructive bowel gas pattern. Feeding tube overlies the epigastrium.
--- NOTE | 2022-09-04 10:47 | ER ---
Nurse's Notes [facility] Name: Tahir Ag Jr Age: 37 yrs Sex: Male : 1985 Arrival Date: 09/04/2022 Time: 09:42 Bed 15 Private MD: Diagnosis: Epigastric abdominal tenderness Presentation: 09/04 09:44 Chief complaint: EMS states: feeding tube has been leaking x 2 days, patient states kr3 that the tube was replaced 2 days ago. 09:44 Method Of Arrival: EMS kr3 09:51 Coronavirus screen: Client denies travel out of the [place] in the last 14 days. Ebola kr3 Screen: Patient denies travel to an Ebola-affected area in the 21 days before illness onset. Initial Sepsis Screen: Does the patient meet any 2 criteria? No. Patient's initial sepsis screen is negative. Does the patient have a suspected source of infection? Yes: Skin breakdown/wound. Risk Assessment: Do you want to hurt yourself or someone else? Patient reports no desire to harm self or others. Onset of symptoms was August 02, 2022. 09:51 Acuity: MARTINA 3 kr3 Triage Assessment: 09:57 General: Appears in no apparent distress. comfortable, Behavior is calm. Pain: kr3 Complains of pain in all over Pain currently is 10 out of 10 on a pain scale. Quality of pain is described as sharp. Historical: - PMHx: 09:57 achalasia; Bipolar disorder; Diabetes - NIDDM; Hernia; Hypertension; Schizophrenia; kr3 Seizure; - PSHx: 09:57 gastrostomy tube; kr3 - Immunization history:: Adult Immunizations not up to date. - Social history:: Smoking status: Patient denies any tobacco usage or history of. Screenin:04 Abuse screen: Denies threats or abuse. Nutritional screening: On PEG tube. Tuberculosis kr3 screening: No symptoms or risk factors identified. Fall Risk None identified. Assessment: 11:04 Reassessment: No changes from previously documented assessment. Patient and/or family kr3 updated on plan of care and expected duration. Pain level reassessed. Patient is alert, oriented x 3, equal unlabored respirations, skin warm/dry/pink. Vital Signs: 09:51 BP 111 / 85; Pulse 62; Resp 18; Temp 96.8(A); Pulse Ox 100% on R/A; kr3 11:04 BP 108 / 82; Pulse 63; Resp 18; Pulse Ox 100% on R/A; kr3 ED Course: 09:42 Patient arrived in ED. kr3 09:45 Reji Blackmon is PHCP. jl9 09:45 Deedee Valle MD is Attending Physician. jl9 09:57 Triage completed. kr3 09:59 Arm band placed on left wrist. Patient placed in an exam room, on a stretcher. kr3 10:05 Bed in low position. Call light in reach. Side rails up X 1. kr3 10:23 XRAY Abdomen 1 View (KUB) In Process Unspecified. EDMS 11:05 No provider procedures requiring assistance completed. Patient did not have IV access kr3 during this emergency room visit. Administered Medications: No medications were administered Medication: 11:07 VIS not applicable for this client. kr3 Outcome: 10:46 Discharge ordered by . jl9 11:05 Discharged to home ambulatory. kr3 11:05 Condition: stable 11:05 Discharge instructions given to patient, Instructed on discharge instructions, follow up and referral plans. Demonstrated understanding of instructions, follow-up care. 11:14 Patient left the ED. kr3 Signatures: Dispatcher [employer] EDPA Reji Blackmon jl9 Dodie Kan, RN RN kr3
--- NOTE | 2022-09-04 10:47 | EDPHYS ---
Physician Documentation [facility] Name: Tahir Ag Jr Age: 37 yrs Sex: Male : 1985 Arrival Date: 09/04/2022 Time: 09:42 Bed 15 Private MD: ED Physician Deedee Valle HPI: 09/04 10:31 This 37 yrs old Black Male presents to ER via EMS with complaints of slight leaking jl9 from his feeding tube that was placed 2 days ago. . 10:31 Onset: The symptoms/episode began/occurred yesterday. Severity of symptoms: Pain is jl9 currently a 0 / 10. Historical: - PMHx: 09:57 achalasia; Bipolar disorder; Diabetes - NIDDM; Hernia; Hypertension; Schizophrenia; kr3 Seizure; - PSHx: 09:57 gastrostomy tube; kr3 - Immunization history:: Adult Immunizations not up to date. - Social history:: Smoking status: Patient denies any tobacco usage or history of. ROS: 10:31 Constitutional: Negative for fever, chills, and weight loss, Eyes: Negative for injury, jl9 pain, redness, and discharge, ENT: Negative for injury, pain, and discharge, Neck: Negative for injury, pain, and swelling, Cardiovascular: Negative for chest pain, palpitations, and edema, Respiratory: Negative for shortness of breath, cough, wheezing, and pleuritic chest pain. 10:31 Abdomen/GI: Negative for abdominal pain, nausea, vomiting, diarrhea, and constipation, Back: Negative for injury and pain, : Negative for injury, bleeding, discharge, and swelling, MS/Extremity: Negative for injury and deformity, Skin: Negative for injury, rash, and discoloration, Neuro: Negative for headache, weakness, numbness, tingling, and seizure, Psych: Negative for depression, anxiety, suicide ideation, homicidal ideation, and hallucinations, Allergy/Immunology: Negative for hives, rash, and allergies, Endocrine: Negative for neck swelling, polydipsia, polyuria, polyphagia, and marked weight changes, Hematologic/Lymphatic: Negative for swollen nodes, abnormal bleeding, and unusual bruising. 10:31 Abdomen/GI: Positive for Exam: 10:32 Constitutional: This is a well developed, well nourished patient who is awake, alert, jl9 and in no acute distress. Head/Face: Normocephalic, atraumatic. Eyes: Pupils equal round and reactive to light, extra-ocular motions intact. Lids and lashes normal. Conjunctiva and sclera are non-icteric and not injected. Cornea within normal limits. Periorbital areas with no swelling, redness, or edema. ENT: Mucous membranes moist. Neck: Trachea midline, no thyromegaly or masses palpated, and no cervical lymphadenopathy. Supple, full range of motion without nuchal rigidity, or vertebral point tenderness. No Meningismus. Chest/axilla: Normal chest wall appearance and motion. Nontender with no deformity. No lesions are appreciated. Cardiovascular: Regular rate and rhythm with a normal S1 and S2. No gallops, murmurs, or rubs. Normal PMI, no JVD. No pulse deficits. Respiratory: Lungs have equal breath sounds bilaterally, clear to auscultation and percussion. No rales, rhonchi or wheezes noted. No increased work of breathing, no retractions or nasal flaring. 10:32 Back: No spinal tenderness. No costovertebral tenderness. Full range of motion. Skin: Warm, dry with normal turgor. Normal color with no rashes, no lesions, and no evidence of cellulitis. MS/ Extremity: Pulses equal, no cyanosis. Neurovascular intact. Full, normal range of motion. Neuro: Awake and alert, GCS 15, oriented to person, place, time, and situation. Cranial nerves II-XII grossly intact. Motor strength 5/5 in all extremities. Sensory grossly intact. Cerebellar exam normal. Normal gait. Psych: Awake, alert, with orientation to person, place and time. Behavior, mood, and affect are within normal limits. 10:32 Abdomen/GI: Inspection: abdomen appears normal, Bowel sounds: normal, Palpation: abdomen is soft and non-tender, G tube present. No leakage visualized. . Vital Signs: 09:51 BP 111 / 85; Pulse 62; Resp 18; Temp 96.8(A); Pulse Ox 100% on R/A; kr3 11:04 BP 108 / 82; Pulse 63; Resp 18; Pulse Ox 100% on R/A; kr3 MDM: 09:45 Patient medically screened. jl9 10:32 Data reviewed: vital signs, nurses notes. Counseling: I had a detailed discussion with jl9 the patient and/or guardian regarding: the historical points, exam findings, and any diagnostic results supporting the discharge/admit diagnosis, radiology results, the need for outpatient follow up, a integrity consultant, to return to the emergency department if symptoms worsen or persist or if there are any questions or concerns that arise at home. 09/04 09:50 Order name: XRAY Abdomen 1 View (KUB); Complete Time: 10:31 jl9 Administered Medications: No medications were administered Disposition: 15:32 STAFF ATTESTATION STATEMENT: I was immediately available onsite in the emergency sd2 department for consultation in the care of this patient. I did not see or examine this patient. Deedee Valle MD. Disposition Summary: 09/04/22 10:46 Discharge Ordered Location: Home jl9 Condition: Stable jl9 Diagnosis - Epigastric abdominal tenderness jl9 Followup: jl9 - With: Private Physician - When: 1 - 2 days - Reason: Recheck today's complaints, Continuance of care, Re-evaluation by your physician Discharge Instructions: - Discharge Summary Sheet jl9 - Gastrostomy Tube Home Guide, Adult jl9 Forms: - Medication Reconciliation Form jl9 - Thank You Letter jl9 - Antibiotic Education jl9 - Prescription Opioid Use jl9 Signatures: Dispatcher [employer] Reji Vanegas jl9 Deedee Valle MD MD al2 Dodie Kan, RN RN kr3
[2022-09-04 11:40] VITALS: TEMP 96.8; O2SAT 100
[2022-09-04 11:41] VITALS: BP 108/82
== END 2022-09-04 11:14 | disposition home or self-care (01) ==
LOC: ER 09:35
DX: R10.816 Epigastric abdominal tenderness (principal)
CPT/HCPCS: 74018; 99283

== ENCOUNTER 2022-09-04 15:41 | Emergency (ER) | payer OTHER ==
--- OUTSIDE RECORDS SUMMARY | 2022-09-04 15:52 | XMS REPORT | Continuity of Care Document ---
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 tablet by ity of disintegrat 00:00: mouth [place] ing tablet 00 every 8 Medica l (eight) Branch hours as needed for Nausea and Vomiting (N/V). ondansetron Yes [id number] 8mg Take 1 Univers 8 mg 8-03 tablet by ity of disintegrat 00:00: mouth [place] ing tablet 00 every 8 Medica l (eight) Branch hours as needed for Nausea and Vomiting (N/V). ondansetron Yes [id number] 8mg Take 1 Univers 8 mg 8-03 tablet by ity of disintegrat 00:00: mouth [place] ing tablet 00 every 8 Medica l (eight) Branch hours as needed for Nausea and Vomiting (N/V). ondansetron Yes [id number] 8mg Take 1 Univers 8 mg 8-03 tablet by ity of disintegrat 00:00: mouth [place] ing tablet 00 every 8 Medica l (eight) Branch hours as needed for Nausea and Vomiting (N/V). ondansetron 2021- No [id number] 8mg Take 1 Univers 8 mg 8-03 11-02 tablet by ity of disintegrat 00:00: 00:00 [place] tablet [place] :00 every 8 Medica l (eight) Branch hours as needed for Nausea and Vomiting (N/V). pantoprazol 2- No [id number] 40mg Take 20 mL Univers e 2 mg/mL 05-26 through ity of oral 00:00: 04:59 enteral [place] suspension 00 :00 tube in Medica l the Branch morning for 30 days. pantoprazol 2021- No [id number] 40mg Take 20 mL Univers e 2 mg/mL 05-26 through ity of oral 00:00: 04:59 enteral [place] suspension 00 :00 tube in Medica l the Branch morning for 30 days. valproic Yes Take by Collarityer s acid, as 7-12 mouth. Pt ity [...] of [place] salt, 07 dosage Medical ([facility]) paliperidon Yes by Univer s e palmitate 7-12 Intramuscu it y of (INVEGA 12:18: lar route [place] TRINZA IM) 07 once every Med ical month. Branch Takes monthly on the valproic Yes Take by Univer s acid, as 7-12 mouth. Pt ity of sodium 12:18: unaware of [place] salt, 07 dosage [facility] paliperidon Yes by [...] on Tue Branch 04/30/22 at 2221, Until [place] 05/02/22 at 2220, Routine, Pain (scale 7-10) [...] dose, On Medical mEq/100 mL Tue04/26/22 [facility] RTU IVPB 20 at 1930, mEq 100 [...] Branch at 1830, STAT iopamidol 2021- No [id number] 50mL 50 mL, U nivers (ISOVUE 04-26 Intravenou ity o f 370-500 mL) 22:57: 22:57 s, ONCE, 1 [place] injection 00 :00 dose, On Medica l 50 mL Tue04/26/22 Branch at 1815, Routine valproic Yes Take by [employer] s acid, as 04-26 mouth. Pt ity of sodium 21:06: unaware of [place] salt, 35 dosage Medical ([facility] Branch ORAL) paliperidon Yes by Univer s e palmitate 04-26 Intramuscu it y of (INVEGA 21:06: lar route [place] TRINZA IM) 35 once every Med ical month. Branch Takes monthly on the valproic Yes Take by Collarityer s acid, as - mouth. Pt ity [...] Takes monthly on the ibuprofen 2021-0 Yes [id number] 200mg Take 10 mL Univers 100 mg/5 mL 5-20 by mouth 3 it y of oral 00:00: (three) [place] suspension 00 times Medical daily with Branch meals. ibuprofen 2022-0 Yes [id number] 200mg Take 10 mL Univers 100 mg/5 mL 5-20 by mouth 3 it y of oral 00:00: (three) [place] suspension 00 times Medical daily with Branch meals. ibuprofen 2022-0 Yes [id number] 200mg Take 10 mL Univers 100 mg/5 mL 5-20 by mouth 3 it y of oral 00:00: (three) [place] suspension 00 times Medical daily with Branch meals. ibuprofen 2022-0 Yes [id number] 200mg Take 10 mL Univers 100 mg/5 mL 5-20 by mouth 3 it y of oral 00:00: (three) [place] suspension 00 times Medical daily with Branch meals. ibuprofen 2022-0 Yes [id number] 200mg Take 10 mL Univers 100 mg/5 mL 5-20 by mouth 3 it y of oral 00:00: (three) [place] suspension 00 times Medical daily with Branch meals. ibuprofen 2022-0 Yes [id number] 200mg Take 10 mL Univers 100 mg/5 mL 5-20 by mouth 3 it y of oral 00:00: (three) [place] suspension 00 times Medical daily with Branch meals. ibuprofen 2022-0 Yes [id number] 200mg Take 10 mL Univers 100 mg/5 mL 5-20 by mouth 3 it y of oral 00:00: (three) [place] suspension 00 times Medical daily with Branch meals. ibuprofen 2022-0 Yes [id number] 200mg Take 10 mL Univers 100 mg/5 mL 5-20 by mouth 3 it y of oral 00:00: (three) [place] suspension 00 times Medical daily with Branch meals. ibuprofen 2022-0 Yes [id number] 200mg Take 10 mL Univers 100 mg/5 mL 5-20 by mouth 3 it y of oral 00:00: (three) [place] suspension 00 times Medical daily with Branch meals. ibuprofen 2022-0 Yes [id number] 200mg Take 10 mL Univers 100 mg/5 mL 5-20 by mouth 3 it y of oral 00:00: (three) [place] suspension 00 times Medical daily with Branch meals. ibuprofen 2022-0 Yes [id number] 200mg Take 10 mL Univers 100 mg/5 mL 5-20 by mouth 3 it y of oral 00:00: (three) [place] suspension 00 times Medical daily with Branch meals. ibuprofen 2022-0 Yes [id number] 200mg Take 10 mL Univers 100 mg/5 mL 5-20 by mouth 3 it y of oral 00:00: (three) [place] suspension 00 times Medical daily with Branch meals. ibuprofen 2022-0 Yes [id number] 200mg Take 10 mL Univers 100 mg/5 mL 5-20 by mouth 3 it y of oral 00:00: (three) [place] suspension 00 times Medical daily with Branch meals. ibuprofen 2022-0 Yes [id number] 200mg Take 10 mL Univers 100 mg/5 mL 5-20 by mouth 3 it y of oral 00:00: (three) [place] suspension 00 times Medical daily with Branch meals. ibuprofen 2022-0 Yes [id number] 200mg Take 10 mL Univers 100 mg/5 mL 5-20 by mouth 3 it y of oral 00:00: (three) [place] suspension 00 times Medical daily with Branch meals. ibuprofen 2022-0 Yes [id number] 200mg Take 10 mL Univers 100 mg/5 mL 5-20 by mouth 3 it y of oral 00:00: (three) [place] suspension 00 times Medical daily with Branch meals. ibuprofen 2022-0 Yes [id number] 200mg Take 10 mL Univers 100 mg/5 mL 5-20 by mouth 3 it y of oral 00:00: (three) [place] suspension 00 times Medical daily with Branch meals. ibuprofen 2-0 Yes [id number] 200mg Take 10 mL Univers 100 mg/5 mL 5-20 by mouth 3 it y of oral 00:00: (three) [place] suspension 00 times Medical daily with Branch meals. ibuprofen 2-0 Yes [id number] 200mg Take 10 mL Univers 100 mg/5 mL 5-20 by mouth 3 it y of oral 00:00: (three) [place] suspension 00 times Medical daily with Branch meals. ibuprofen 2-0 Yes [id number] 200mg Take 10 mL Univers 100 mg/5 mL 5-20 by mouth 3 it y of oral 00:00: (three) [place] suspension 00 times Medical daily with Branch meals. ibuprofen 2021-0 2022- No [id number] 200mg Take 10 mL Univers 100 mg/5 mL 5-20 11-02 by mouth 3 i ty of oral 00:00: 00:00 (three) [place] suspension 00 :00 times Medical daily with Branch meals. Immunizations Ordered Filled Immunization Date Status Comments [facility] e Immunization Name Name SARS-COV-2 COVID-19 2021-09-22 Completed Unive rsity of PFIZER VACCINE 00:00:00 [facility] SARS-COV-2 COVID-19 2021-09-22 Completed Unive rsity of PFIZER VACCINE 00:00:00 [facility] SARS-COV-2 COVID-19 2021-09-22 Completed Unive rsity of PFIZER VACCINE 00:00:00 [facility] SARS-COV-2 COVID-19 2021-09-22 Completed Unive rsity of PFIZER VACCINE 00:00:00 [facility] SARS-COV-2 COVID-19 2021-09-22 Completed Unive rsity of PFIZER VACCINE 00:00:00 [facility] SARS-COV-2 COVID-19 2021-09-22 Completed Unive rsity of PFIZER VACCINE 00:00:00 [facility] SARS-COV-2 COVID-19 2021-09-22 Completed Unive rsity of PFIZER VACCINE 00:00:00 [facility] SARS-COV-2 COVID-19 2021-09-22 Completed Unive rsity of PFIZER VACCINE 00:00:00 [facility] SARS-COV-2 COVID-19 2021-09-22 Completed Unive rsity of PFIZER VACCINE 00:00:00 [facility] SARS-COV-2 COVID-19 2021-09-22 Completed Unive rsity of PFIZER VACCINE 00:00:00 [facility] SARS-COV-2 COVID-19 2021-09-22 Completed Unive rsity of PFIZER VACCINE 00:00:00 [facility] SARS-COV-2 COVID-19 2021-09-22 Completed Unive rsity of PFIZER VACCINE 00:00:00 [facility] SARS-COV-2 COVID-19 2021-09-22 Completed Unive rsity of PFIZER VACCINE 00:00:00 [facility] SARS-COV-2 COVID-19 2021-09-22 Completed Unive rsity of PFIZER VACCINE 00:00:00 [facility] SARS-COV-2 COVID-19 2021-09-22 Completed Unive rsity of PFIZER VACCINE 00:00:00 [facility] SARS-COV-2 COVID-19 2021-09-22 Completed Unive rsity of PFIZER VACCINE 00:00:00 [facility] SARS-COV-2 COVID-19 2021-09-22 Completed Unive rsity of PFIZER VACCINE 00:00:00 [facility] SARS-COV-2 COVID-19 2021-09-22 Completed Unive rsity of PFIZER VACCINE 00:00:00 [facility] SARS-COV-2 COVID-19 2021-09-22 Completed Unive rsity of PFIZER VACCINE 00:00:00 [facility] SARS-COV-2 COVID-19 2021-09-22 Completed Unive rsity of PFIZER VACCINE 00:00:00 [facility] SARS-COV-2 COVID-19 2021-09-22 Completed Unive rsity of PFIZER VACCINE 00:00:00 [facility] SARS-COV-2 COVID-19 2021-09-22 Completed Unive rsity of PFIZER VACCINE 00:00:00 [facility] Influenza Virus 2020-08-30 Completed Universit y of Vaccine Quad .5 mL 00:00:00 [place] [facility] IM 6+ MO Branch Pneumococcal 2020-08-30 [...] y of Vaccine [place] .5 mL 00:00:00 [place] [facility] IM 6+ MO Branch Pneumococcal 2020-08-30 Completed University o f Polysaccharide, 00:00:00 [place] [facility] ical PPSV23 (PNEUMOVAX) Branch Influenza Virus 2020-08-30 Completed Universit y of Vaccine Quad .5 mL 00:00:00 [place] [facility] IM 6+ MO Branch Pneumococcal 2020-08-30 Completed University o f Polysaccharide, 00:00:00 [place] [facility] ical PPSV23 (PNEUMOVAX) Branch Influenza Virus 2020-08-30 Completed Universit y of Vaccine Quad .5 mL 00:00:00 [place] [facility] IM 6+ MO Branch Pneumococcal 2020-08-30 Completed University o f Polysaccharide, 00:00:00 [place] [facility] ical PPSV23 (PNEUMOVAX) Branch Influenza Virus 2020-08-30 Completed Universit y of Vaccine Quad .5 mL 00:00:00 [place] [facility] 6+ MO Branch Pneumococcal 2020-08-30 Completed University o f Polysaccharide, 00:00:00 [place] [facility] ical PPSV23 (PNEUMOVAX) Branch Influenza Virus 2020-08-30 Completed Universit y of Vaccine Quad .5 mL 00:00:00 [place] [facility] 6+ MO Branch Pneumococcal 2020-08-30 Completed University o f Polysaccharide, 00:00:00 [place] [facility] ical PPSV23 (PNEUMOVAX) Branch Influenza Virus 2020-08-30 Completed Universit y of Vaccine Quad .5 mL 00:00:00 [place] [facility] IM 6+ MO Branch Pneumococcal 2020-08-30 Completed University o f Polysaccharide, 00:00:00 [place] [facility] ical PPSV23 (PNEUMOVAX) Branch Influenza Virus 2020-08-30 Completed Universit y of Vaccine Quad .5 mL 00:00:00 [place] [facility] IM 6+ MO Branch Pneumococcal 2020-08-30 Completed University o f Polysaccharide, 00:00:00 [place] [facility] ical PPSV23 (PNEUMOVAX) Branch Influenza Virus 2020-08-30 Completed Universit y of Vaccine Quad .5 mL 00:00:00 [place] [facility] IM 6+ MO Branch Pneumococcal 2020-08-30 Completed University o f Polysaccharide, 00:00:00 [place] [facility] ical PPSV23 (PNEUMOVAX) Branch Influenza Virus 2020-08-30 Completed Universit y of Vaccine Quad .5 mL 00:00:00 [place] [facility] IM 6+ MO Branch Pneumococcal 2020-08-30 Completed University o f Polysaccharide, 00:00:00 [place] [facility] ical PPSV23 (PNEUMOVAX) Branch Influenza Virus 2020-08-30 Completed Universit y of Vaccine Quad .5 mL 00:00:00 [facility] IM 6+ MO Branch Pneumococcal 2020-08-30 Completed University o f Polysaccharide, 00:00:00 [place] [facility] ical PPSV23 (PNEUMOVAX) Branch Influenza Virus 2020-08-30 Completed Universit y of Vaccine Quad .5 mL 00:00:00 [facility] IM 6+ MO Branch Pneumococcal 2020-08-30 Completed University o f Polysaccharide, 00:00:00 [place] Med ical PPSV23 (PNEUMOVAX) Branch Influenza Virus 2020-08-30 Completed Universit y of Vaccine Quad .5 mL 00:00:00 [facility] IM 6+ MO Branch Pneumococcal 2020-08-30 Completed University o f Polysaccharide, 00:00:00 [place] [facility] ical PPSV23 (PNEUMOVAX) Branch Influenza Virus 2020-08-30 Completed Universit y of Vaccine Quad .5 mL 00:00:00 [facility] [place] [facility] 6+ MO Branch Pneumococcal 2020-08-30 Completed University o f Polysaccharide, 00:00:00 [place] [facility] ical PPSV23 (PNEUMOVAX) Branch Vital Signs Vital Name Observation Time Observation Value Comments Source Systolic blood 2022-08-25 16:24:00 103 mm[Hg] Univer sity of pressure [facility] Diastolic blood 2022-08-25 16:24:00 71 mm[Hg] [facility] Heart rate 2022-08-25 16:24:00 79 /min [facility] Body temperature 2022-08-25 16:24:00 36.56 Maude [facility] 2022-08-25 16:24:00 18 /min [facility] Oxygen saturation in 2022-08-25 16:24:00 95 /min [facility] Arterial blood by [facility] Pulse oximetry Branch Body weight 2022-08-24 17:00:00 41.1 kg [facility] BMI 2022-08-24 17:00:00 15.08 kg/m2 [facility] Body height 2022-08-24 06:49:00 165.1 cm [facility] Systolic blood 2022-08-23 18:30:00 81 mm[Hg] Univer sity of pressure [facility] Diastolic blood 2022-08-23 18:30:00 51 mm[Hg] Unive rsity of pressure [facility] Heart rate 2022-08-23 18:30:00 69 /min Universi ty of [place] [facility] [place] Body temperature 2022-08-23 18:30:00 35.56 Maude Univ ersity of [place] [facility] Body height 2022-08-23 18:30:00 165.1 cm Universi ty of [place] [facility] Body weight 2022-08-23 18:30:00 36.288 kg Universi ty of [place] [facility] BMI 2022-08-23 18:30:00 13.31 kg/m2 Universi ty of [place] [facility] Systolic blood 2022-08-10 13:09:00 96 mm[Hg] Univer sity of pressure [facility] Diastolic blood 2022-08-10 13:09:00 66 mm[Hg] Unive rsity of pressure [facility] Heart rate 2022-08-10 13:09:00 75 /min Universi ty of [place] [facility] [place] Body temperature 2022-08-10 13:09:00 34.28 Maude Univ ersity of [place] [facility] Body height 2022-08-10 13:09:00 165.1 cm Universi ty of [place] [facility] Body weight 2022-08-10 13:09:00 35.607 kg Universi ty of [place] [facility] BMI 2022-08-10 13:09:00 13.06 kg/m2 Universi ty of [facility] Branch Systolic blood 2022-07-20 20:33:00 101 mm[Hg] Univer sity of pressure [facility] Diastolic blood 2022-07-20 20:33:00 49 mm[Hg] Unive rsity of pressure [facility] Heart rate 2022-07-20 20:33:00 67 /min Universi ty of [place] [facility] Body temperature 2022-07-20 20:33:00 36.11 Maude Univ ersity of [facility] Branch Respiratory rate 2022-07-20 20:33:00 18 /min Univ ersity of [facility] Oxygen saturation in 2022-07-20 20:33:00 97 /min University of Arterial blood by [facility] Pulse oximetry Branch Body weight 2022-07-20 02:15:00 41.277 kg Universi ty of [place] [facility] BMI 2022-07-20 02:15:00 15.14 kg/m2 [facility]i [facility] [place] [facility] Body height 2022-07-10 02:38:00 165.1 cm [facility]i ty [facility] [place] [facility] Systolic blood 2022-07-12 02:00:00 108 mm[Hg] Univer sity of pressure [facility] Diastolic blood 2022-07-12 02:00:00 52 mm[Hg] Unive rsity of pressure [place] [facility] Heart rate 2022-07-12 02:00:00 96 /min [facility]i ty [facility] [place] [facility] Body temperature 2022-07-12 02:00:00 36.67 Maude Univ ersity of [place] [facility] Respiratory rate 2022-07-12 02:00:00 25 /min Univ ersity of [place] [facility] Oxygen saturation in 2022-07-12 02:00:00 94 /min University of Arterial blood by [place] [facility] Pulse oximetry Branch Body weight 2022-07-11 08:23:00 35.97 kg Universi ty [facility] [place] [facility] BMI 2022-07-11 08:23:00 12.83 kg/m2 [facility] [place] [facility] Body height 2022-07-10 02:38:00 165.1 cm [facility]i ty [facility] [place] [facility] Systolic blood 2022-05-27 03:00:00 94 mm[Hg] Univer sity of pressure [facility] Diastolic blood 2022-05-27 03:00:00 69 mm[Hg] Unive rsity of pressure [facility] Heart rate 2022-05-27 03:00:00 73 /min Universi ty [facility] [place] [facility] Respiratory rate 2022-05-27 03:00:00 18 /min Univ ersity of [place] [facility] Oxygen saturation in 2022-05-27 03:00:00 100 /min University of Arterial blood by [place] [facility] Pulse oximetry Branch Body temperature 2022-05-27 00:00:00 36.67 Maude Univ ersity of [place] [facility] Body height 2022-05-27 00:00:00 165.1 cm [facility]i ty [facility] [place] [facility] Body weight 2022-05-27 00:00:00 44.453 kg [facility]i ty [facility] [place] [facility] BMI 2022-05-27 00:00:00 16.31 kg/m2 Universi ty of [place] [facility] Oxygen saturation in 2022-05-04 13:19:00 98 /min University of Arterial blood by [facility] Pulse oximetry Branch Systolic blood 2022-05-04 13:19:00 100 mm[Hg] Univer sity of pressure [facility] Diastolic blood 2022-05-04 13:19:00 66 mm[Hg] Unive rsity of pressure [facility] Heart rate 2022-05-04 13:19:00 60 /min Universi ty [facility] [place] [facility] Body temperature 2022-05-04 13:19:00 36.83 Maude Univ ersity of [place] [facility] Respiratory rate 2022-05-04 13:19:00 14 /min Univ ersity of [place] [facility] Body weight 2022-04-29 08:40:00 41.958 kg Universi ty [facility] [place] [facility] BMI 2022-04-29 08:40:00 15.39 kg/m2 Universi ty [facility] [place] [facility] Body height 2022-04-27 02:59:00 165.1 cm Universi ty [facility] [place] [facility] Systolic blood 2022-04-28 14:24:00 112 mm[Hg] Univer sity of pressure [place] [facility] Diastolic blood 2022-04-28 14:24:00 77 mm[Hg] Unive rsity of pressure [facility] Heart rate 2022-04-28 14:24:00 51 /min Universi ty [facility] [place] [facility] Body temperature 2022-04-28 14:24:00 36.56 Maude Univ ersity of [place] [facility] Respiratory rate 2022-04-28 14:24:00 16 /min Univ ersity of [place] [facility] Oxygen saturation in 2022-04-28 14:24:00 98 /min University of Arterial blood by [facility] Pulse oximetry Branch Body weight 2022-04-28 09:16:00 43.999 kg Universi ty of [place] [facility] BMI 2022-04-28 09:16:00 15.39 kg/m2 Universi ty [facility] [place] [facility] Body height 2022-04-27 02:59:00 165.1 cm [facility]i ty [facility] [place] [facility] Systolic blood 2022-04-28 16:55:00 111 mm[Hg] Univer sity of pressure [facility] Diastolic blood 2022-04-28 16:55:00 74 mm[Hg] [facility] pressure [facility] Heart rate 2022-04-28 16:55:00 55 /min [facility] Body temperature 2022-04-28 16:55:00 36.39 Maude [facility] Respiratory rate 2022-04-28 16:55:00 15 /min [facility] Oxygen saturation in 2022-04-28 16:55:00 96 /min [facility] Arterial blood by [facility] Pulse oximetry [place] Body weight 2022-04-28 09:16:00 43.999 kg [facility] BMI 2022-04-28 09:16:00 16.14 kg/m2 [facility] Body height 2022-04-27 02:59:00 165.1 cm [facility] Procedures Procedure Date / Time Performing Source Performed Clinician BASIC METABOLIC PANEL (NA, K, CL, 2022-08-25 [facility] of CO2, GLUCOSE, BUN, CREATININE, CA) 10:44:00 [facility] US ABDOMEN LIMITED 2022-08-25 [facility] of 01:10:19 [facility] BASIC METABOLIC PANEL (NA, K, CL, 2022-08-24 [facility] of CO2, GLUCOSE, BUN, CREATININE, CA) 21:56:[address] [facility] [address] ABDOMEN PELVIS W CONTRAST 2022-08-24 Silas Briones [facility] of 17:42:15 [facility] POCT GLUCOSE (AUTOMATED) 2022-08-24 JaimeNupur garcia [facility] ity of 16:45:00 [facility] PHOSPHORUS 2022-08-24 [facility] of 10:14:00 [facility] MAGNESIUM 2022-08-24 [facility] of 10:14:00 [facility] TROPONIN I 2022-08-24 Jaime, [facility] of 10:14:00 [facility] LACTIC ACID WHOLE BLOOD 2022-08-24 Nupur Sandoval [facility] ty of 10:13:00 [facility] MRSA / MSSA SCREEN BY CLAUDIA HARLEY 2022-08-24 Nupur Sandoval [place] of 09:32:00 [facility] COMP. METABOLIC PANEL ([id number]) 2022-08-24 Nupur Sandoval Un iversity of 08:36:00 [facility] POCT GLUCOSE (AUTOMATED) 2022-08-24 Brett Hamilton [facility] ity of 01:42:00 [facility] PHOSPHORUS 2022-08-24 Brett Hamilton [place] of 01:23:00 [facility] XR CHEST 1 VW 2022-08-24 Brett Hamilton [place] of 00:48:19 [facility] XR KUB 2022-08-24 Brett Hamilton [place] of 00:48:19 [facility] MAGNESIUM 2022-08-24 Brett Hamilton [place] of 00:09:00 [facility] BASIC METABOLIC PANEL (NA, K, CL, 2022-08-24 Brett Hamilton [place] of CO2, GLUCOSE, BUN, CREATININE, CA) 00:09:00 [facility] CBC WITH DIFF 2022-08-24 Brett Hamilton [place] of 00:09:00 [facility] POCT GLUCOSE (AUTOMATED) 2022-08-23 Brett Hamilton [facility] ity of 23:43:00 [facility] CONSENT/REFUSAL FOR DIAGNOSIS AND 2022-08-23 [facility] University of TREATMENT 23:33:39 Unassigned, No [facility] [place] PREALBUMIN, SERUM 2022-08-23 Jude Murphy of 19:47:00 [facility] HEPATIC FUNCTION PANEL ([id number]) 2022-08-23 Jude Murphy niversity of (ALB,T.PRO,BILI 19:47:00 [facility],BU/BC,ALT,AST,ALK PHOS) [place] BASIC METABOLIC PANEL (NA, K, CL, 2022-08-23 Jude Murphy of CO2, GLUCOSE, BUN, CREATININE, CA) 19:47:00 [facility] CBC WITHOUT DIFF 2022-08-23 Jude Murphy of 19:47:00 [facility] POCT GLUCOSE (AUTOMATED) 2022-07-20 Jorden Robertson ity of 16:40:00 [facility] POCT GLUCOSE (AUTOMATED) 2022-07-20 Jorden Robertson ity of 12:49:00 [facility] PREALBUMIN, SERUM 2022-07-20 [facility] o f 10:59:00 [facility] CORTISOL AM 2022-07-20 Dotty Camarillo [place] of 10:59:00 [facility] PHOSPHORUS 2022-07-20 [facility] 10:52:00 [facility] MAGNESIUM 2022-07-20 [facility], [facility] of 10:52:00 [facility] BASIC METABOLIC PANEL (NA, K, CL, 2022-07-20 [facility], [facility] of CO2, GLUCOSE, BUN, CREATININE, CA) 10:52:00 [facility] POCT GLUCOSE (AUTOMATED) 2022-07-20 Kamron Robertsonlani [facility] of 04:40:00 [facility] POCT GLUCOSE (AUTOMATED) 2022-07-20 Ovamarjit, Jorden [facility] ity of 00:55:00 [facility] POCT GLUCOSE (AUTOMATED) 2022-07-19 Kamron Robertsonlani [facility] of 22:01:00 [facility] POCT GLUCOSE (AUTOMATED) 2022-07-19 amarjit, Jorden [facility] it[facility] of 16:38:00 [facility] POCT GLUCOSE (AUTOMATED) 2022-07-19 Marcelo, Jorden [facility] it[facility] of 12:42:00 [facility] PHOSPHORUS 2022-07-19 Johana Guy [place] of 10:20:00 Tricia [facility] BASIC METABOLIC PANEL (NA, K, CL, 2022-07-19 Keysha Nguyen [place] of CO2, GLUCOSE, BUN, CREATININE, CA) 10:20:00 D [facility] CBC WITH DIFF 2022-07-19 Deedee Nguyen [place] of 10:20:00 D [facility] POCT GLUCOSE (AUTOMATED) 2022-07-19 Marcelo Jorden [facility] it[facility] of 08:56:00 [facility] POCT GLUCOSE (AUTOMATED) 2022-07-19 Ovamarjit, Jorden [facility] of 06:09:00 [facility] POCT GLUCOSE (AUTOMATED) 2022-07-19 Ovamarjit, Jorden [facility] of 01:10:00 [facility] POCT GLUCOSE (AUTOMATED) 2022-07-18 Kamron Robertsonlani [facility] of 21:12:00 [facility] POCT GLUCOSE (AUTOMATED) 2022-07-18 Kamron ocasiolani [facility] of 16:26:00 [facility] POCT GLUCOSE (AUTOMATED) 2022-07-18 Jorden ocasio [facility] it[facility] of 13:13:00 [facility] PHOSPHORUS 2022-07-18 [facility], [facility] of 10:08:00 [facility] MAGNESIUM 2022-07-18 [facility] of 10:08:00 [facility] BASIC METABOLIC PANEL (NA, K, CL, 2022-07-18 [facility] of CO2, GLUCOSE, BUN, CREATININE, CA) 10:08:00 [facility] POCT GLUCOSE (AUTOMATED) 2022-07-18 Jorden Robertson [facility] of 10:07:00 [facility] POCT GLUCOSE (AUTOMATED) 2022-07-18 Jorden Robertson [facility] of 06:17:00 [facility] POCT GLUCOSE (AUTOMATED) 2022-07-18 Zachary Li [facility] of 01:38:00 [facility] POCT GLUCOSE (AUTOMATED) 2022-07-17 Zachary Li [facility] of 21:37:00 [facility] POCT GLUCOSE (AUTOMATED) 2022-07-17 Zachary Li [facility] of 16:46:00 [facility] POCT GLUCOSE (AUTOMATED) 2022-07-17 Zachary Li [facility] of 13:01:00 [facility] PHOSPHORUS 2022-07-17 amarjit [facility] of 09:12:00 [facility] MAGNESIUM 2022-07-17 amarjit [facility] of 09:12:00 [facility] BASIC METABOLIC PANEL (NA, K, CL, 2022-07-17 [facility], [facility] of CO2, GLUCOSE, BUN, CREATININE, CA) 09:12:00 [facility] CBC WITH DIFF 2022-07-17 Jina [facility] of 09:12:00 [facility] POCT GLUCOSE (AUTOMATED) 2022-07-17 Zachary Li ity of 09:10:00 [facility] POCT GLUCOSE (AUTOMATED) 2022-07-17 Zachary Li [facility] of 05:23:00 [facility] POCT GLUCOSE (AUTOMATED) 2022-07-17 Zachary Li ity of 01:06:00 [facility] POCT GLUCOSE (AUTOMATED) 2022-07-16 Zachary Li [facility] of 21:35:00 [facility] POCT GLUCOSE (AUTOMATED) 2022-07-16 Zachary Li [facility] of 16:31:00 [facility] POCT GLUCOSE (AUTOMATED) 2022-07-16 Zachary Li ity of 09:19:00 [facility] PHOSPHORUS 2022-07-16 [facility] of 08:41:00 [facility] MAGNESIUM 2022-07-16 [facility] of 08:41:00 [facility] FERRITIN SERUM 2022-07-16 [facility] of 08:41:00 [facility] IRON 2022-07-16 [facility] of 08:41:00 [facility] TOTAL IRON BINDING CAPACITY 2022-07-16 [facility] ersity of 08:41:00 [facility] BASIC METABOLIC PANEL (NA, K, CL, 2022-07-16 Jina [facility] of CO2, GLUCOSE, BUN, CREATININE, CA) 08:41:00 [facility] CBC WITH DIFF 2022-07-16 [facility] of 08:41:00 [facility] RETICULOCYTES AUTOMATED 2022-07-16 Zachary Lii ty of 08:41:00 [facility] POCT GLUCOSE (AUTOMATED) 2022-07-16 Zachary Li [facility] of 05:21:00 [facility] POCT GLUCOSE (AUTOMATED) 2022-07-16 Zachary Li [facility] of 01:20:00 [facility] POCT GLUCOSE (AUTOMATED) 2022-07-15 Zachary Li [facility] of 21:53:00 [facility] POCT GLUCOSE (AUTOMATED) 2022-07-15 Zachary Li [facility] of 17:09:00 [facility] POCT GLUCOSE (AUTOMATED) 2022-07-15 Zachary Li ity of 13:45:00 [facility] XR KUB 2022-07-15 [facility] of 13:43:35 [facility] MAGNESIUM 2022-07-15 [facility] 09:38:00 [facility] BASIC METABOLIC PANEL (NA, K, CL, 2022-07-15 Jc [facility] of CO2, GLUCOSE, BUN, CREATININE, CA) 09:38:00 [facility] CBC WITH DIFF 2022-07-15 Kelvin Muro [place] of 09:38:00 [facility] POCT GLUCOSE (AUTOMATED) 2022-07-15 Zachary Li ity of 04:59:00 [facility] POCT GLUCOSE (AUTOMATED) 2022-07-15 Zachary Li [facility] of 01:09:00 [facility] POCT GLUCOSE (AUTOMATED) 2022-07-14 Zachary Li [facility] of 21:08:00 [facility] POCT GLUCOSE (AUTOMATED) 2022-07-14 Zachary Li ity of 16:10:00 [facility] POCT GLUCOSE (AUTOMATED) 2022-07-14 Zachary Li ity of 12:39:00 [facility] PHOSPHORUS 2022-07-14 Zachary Li of 10:36:00 [facility] MAGNESIUM 2022-07-14 Zachary Li of 10:36:00 [facility] IRON 2022-07-14 Zachary Li of 10:36:00 [facility] COMP. METABOLIC PANEL (81679) 2022-07-14 Zachary Li Un iversity of 10:36:00 [facility] CBC WITH DIFF 2022-07-14 Zachary Li of 10:36:00 [facility] POCT GLUCOSE (AUTOMATED) 2022-07-14 Zachary Li [facility] of 09:06:00 [facility] POCT GLUCOSE (AUTOMATED) 2022-07-14 Zachary Li [facility] of 05:22:00 [facility] POCT GLUCOSE (AUTOMATED) 2022-07-13 Zachary Li [facility] of 22:27:00 [facility] POCT GLUCOSE (AUTOMATED) 2022-07-13 Zachary Li [facility] of 20:56:00 [facility] POCT GLUCOSE (AUTOMATED) 2022-07-13 Zachary Li ity of 15:49:00 [facility] POCT GLUCOSE (AUTOMATED) 2022-07-13 Zachary Li ity of 15:15:00 [facility] POCT GLUCOSE (AUTOMATED) 2022-07-13 Zachary Li ity of 14:59:00 [facility] PREALBUMIN, SERUM 2022-07-13 J[facility] o f 10:51:00 [facility] PHOSPHORUS 2022-07-13 [facility] of 10:51:00 [facility] MAGNESIUM 2022-07-13 [facility] 10:51:00 [facility] TOTAL IRON BINDING CAPACITY 2022-07-13 Zachary Li [facility] ersity of 10:51:00 [facility] BASIC METABOLIC PANEL (NA, K, CL, 2022-07-13 Jina, [facility] of CO2, GLUCOSE, BUN, CREATININE, CA) 10:51:00 [facility] CBC WITH DIFF 2022-07-13 [facility] of 10:51:00 [facility] XR CHEST 1 VW 2022-07-12 Zachary Li [place] of 21:52:10 [facility] PREALBUMIN, SERUM 2022-07-12 GuillermoZachary [place] of 15:31:00 [facility] VANCOMYCIN TROUGH 2022-07-12 [facility] of 11:07:00 [facility] VANCOMYCIN TROUGH 2022-07-12 [facility] of 11:07:00 [facility]OSPHORUS 2022-07-12 [facility] of 10:02:00 [facility] URIC ACID 2022-07-12 Max Cruz [facility] 10:02:00 [facility] MAGNESIUM 2022-07-12 [facility] of 10:02:00 [facility] BASIC METABOLIC PANEL (NA, K, CL, 2022-07-12 Jina, [facility] of CO2, GLUCOSE, BUN, CREATININE, CA) 10:02:00 [facility] CBC WITH DIFF 2022-07-12 [facility] 10:02:00 [facility] PHOSPHORUS 2022-07-12 [facility] of 10:02:00 [facility] URIC ACID 2022-07-12 Max Cruz [facility] 10:02:00 [facility] MAGNESIUM 2022-07-12 [facility] of 10:02:00 [facility] BASIC METABOLIC PANEL (NA, K, CL, 2022-07-12 Jina, May t University of CO2, GLUCOSE, BUN, CREATININE, CA) 10:02:00 [facility] CBC WITH DIFF 2022-07-12 Jina [facility] of 10:02:00 [facility] AC PANEL 20 + LACTIC ACID 2022-07-11 BhupinderfabiánBhaskar, [facility] ersity of 20:53:00 [facility] AC PANEL 20 + LACTIC ACID 2022-07-11 Johnny, [facility] ersity of 20:53:00 [facility] SURGICAL PATHOLOGY EXAM 2022-07-11 [facility] ty of 20:28:00 [facility] XR CHEST 1 VW 2022-07-11 [facility] of 19:33:38 [facility] XR CHEST 1 VW 2022-07-11 [facility] of 19:33:38 [facility] EXPLORATORY LAPAROTOMY 2022-07-11 [facility] y of 18:36:00 [facility] BOWEL RESECTION 2022-07-11 [facility] of 18:36:00 [facility] EXPLORATORY LAPAROTOMY 2022-07-11 [facility] y of 18:36:00 [facility] BOWEL RESECTION 2022-07-11 [facility] of 18:36:00 [facility] XR KUB 2022-07-11 [facility] of 16:08:01 [facility] XR KUB 2022-07-11 [facility] of 16:08:01 [facility] BASIC METABOLIC PANEL (NA, K, CL, 2022-07-11 Zachary Li [place] of CO2, GLUCOSE, BUN, CREATININE, CA) 11:50:00 [facility] BASIC METABOLIC PANEL (NA, K, CL, 2022-07-11 Zachary Li [place] of CO2, GLUCOSE, BUN, CREATININE, CA) 11:50:00 [facility] XR KUB 2022-07-11 [facility] of 11:39:00 [facility] XR KUB 2022-07-11 [facility] of 11:39:00 [facility] CBC WITH DIFF 2022-07-11 Zachary Li [place] of 10:45:00 [facility] CBC WITH DIFF 2022-07-11 Zachary Li of 10:45:[address] [facility] [address] ABDOMEN PELVIS WO CONTRAST 2022-07-11 Zachary Li iversity of 01:46:[address] [facility] [address] ABDOMEN PELVIS WO CONTRAST 2022-07-11 Zachary Li iversity of 01:46:33 [facility] MRSA / MSSA SCREEN BY PCR, [facility] 2022-07-10 Zachary Li of 23:27:00 [facility] MRSA / MSSA SCREEN BY PCR, [facility] 2022-07-10 Zachary Li of 23:27:00 [facility] XR KUB 2022-07-10 Zachary Li of 22:40:17 [facility] XR KUB 2022-07-10 Zachary Li of 22:40:17 [facility] LACTIC ACID WHOLE BLOOD 2022-07-10 Iram Payne [facility] of 16:06:00 J [facility] LACTIC ACID WHOLE BLOOD 2022-07-10 Iram Payne [facility] of 16:06:00 J [facility] BLOOD CULTURE SCREEN 2022-07-10 Lupillo Taylor of 10:59:00 [facility] PHOSPHORUS 2022-07-10 Lupillo Taylor [place] of 10:59:00 [facility] MAGNESIUM 2022-07-10 Lupillo Taylor [place] of 10:59:00 [facility] BASIC METABOLIC PANEL (NA, K, CL, 2022-07-10 Aaron Taylor [place] of CO2, GLUCOSE, BUN, CREATININE, CA) 10:59:00 [facility] CBC WITH DIFF 2022-07-10 Lupillo Taylor of 10:59:00 [facility] BLOOD CULTURE SCREEN 2022-07-10 Lupillo Taylor of 10:59:00 [facility] PHOSPHORUS 2022-07-10 Lupillo Taylor [place] of 10:59:00 [facility] MAGNESIUM 2022-07-10 Lupillo Taylor [place] of 10:59:00 [facility] BASIC METABOLIC PANEL (NA, K, CL, 2022-07-10 Aaron Taylor [place] of CO2, GLUCOSE, BUN, CREATININE, CA) 10:59:00 [facility] CBC WITH DIFF 2022-07-10 uLpillo Taylor [place] of 10:59:[address] [facility] [address] ABDOMEN PELVIS WO CONTRAST 2022-07-10 Lupillo Taylor iversity of 09:25:[address] [facility] [address] ABDOMEN PELVIS WO CONTRAST 2022-07-10 Dimasherin Lupillo Holbrook iversity of 09:25:28 [facility] COVID-19 (ID NOW RAPID TESTING) 2022-07-10 Iram Payne of 01:12:00 J [facility] COVID-19 (ID NOW RAPID TESTING) 2022-07-10 Iram Payne of 01:12:00 J [facility] LAB ONLY COVID INTERPRETATION 2022-07-10 Iram Payne [facility]iversity of 01:12:00 J [facility] LACTIC ACID WHOLE BLOOD 2022-07-10 Iram Payne [facility] ity of 00:14:00 J [facility] LACTIC ACID WHOLE BLOOD 2022-07-10 Iram Payne [facility] ity of 00:14:00 J [facility] LIPASE 2022-07-10 Iram Payne [place] of 00:10:00 J [facility] MAGNESIUM 2022-07-10 Iram Payne [place] of 00:10:00 [facility] COMP. METABOLIC PANEL ([id number]) 2022-07-10 Iram Payne niversity of 00:10:00 [facility] CBC WITH DIFF 2022-07-10 Iram Payne [place] of 00:10:00 J [facility] LIPASE 2022-07-10 Iram Payne [place] of 00:10:00 J [facility] MAGNESIUM 2022-07-10 Iram Payne [place] of 00:10:00 J [facility] COMP. METABOLIC PANEL ([id number]) 2022-07-10 Iram Payne niversity of 00:10:00 J [facility] CBC WITH DIFF 2022-07-10 Iram Payne [place] of 00:10:00 [facility] NOTICE OF PRIVACY PRACTICES 2022-07-09 Doctor Univ ersity of 23:38:54 Unassigned, No [facility] Name Branch NOTICE OF PRIVACY PRACTICES 2022-07-09 Doctor Univ ersity of 23:38:54 Unassigned, No [facility] CONSENT/REFUSAL FOR DIAGNOSIS AND 2022-07-09 Doctor University of TREATMENT 23:37:03 Unassigned, No [facility] CONSENT/REFUSAL FOR DIAGNOSIS AND 2022-07-09 Doctor University of TREATMENT 23:37:03 Unassigned, No [facility] COMP. METABOLIC PANEL ([id number]) 2022-05-27 [facility] 00:31:00 [facility] CBC WITH DIFF 2022-05-27 Janene Taylor [facility] 00:31:00 [facility] CONSENT/REFUSAL FOR DIAGNOSIS AND 2022-05-26 [facility] 23:52:11 Unassigned, No [facility] XR KUB 2022-05-01 [facility] of 15:57:16 [facility] BASIC METABOLIC PANEL (NA, K, CL, 2022-04-29 [place], [facility] of CO2, GLUCOSE, BUN, CREATININE, CA) 09:55:00 [facility] BASIC METABOLIC PANEL (NA, K, CL, 2022-04-29 [facility], [facility] of CO2, GLUCOSE, BUN, CREATININE, CA) 09:55:00 [facility] CBC WITHOUT DIFF 2022-04-28 [facility] 17:04:00 [facility] CBC WITHOUT DIFF 2022-04-28 [facility] 17:04:00 [facility] CBC WITHOUT DIFF 2022-04-28 [facility] 17:04:00 [facility] MAGNESIUM 2022-04-28 [facility] 17:03:00 [facility] BASIC METABOLIC PANEL (NA, K, CL, 2022-04-28 [facility], [facility] of CO2, GLUCOSE, BUN, CREATININE, CA) 17:03:00 [facility] BASIC METABOLIC PANEL (NA, K, CL, 2022-04-28 [facility], [facility] of CO2, GLUCOSE, BUN, CREATININE, CA) 17:03:00 [facility] MAGNESIUM 2022-04-28 [facility] 17:03:00 [facility] BASIC METABOLIC PANEL (NA, K, CL, 2022-04-28 [facility], [facility] of CO2, GLUCOSE, BUN, CREATININE, CA) 17:03:00 [facility] INTUBATION 2022-04-28 Alexandre [facility] of 14:47:00 [facility] ESOPHAGOGASTRODUODENOSCOPY 2022-04-28 [facility] ersity of 14:27:00 K [facility] ESOPHAGOGASTRODUODENOSCOPY 2022-04-28 [facility] ersity of 14:27:00 [facility] EGD (ENDO) 2022-04-28 [facility] of 14:21:27 [facility] EGD (ENDO) 2022-04-28 [facility] of 14:21:27 [facility] POTASSIUM SERUM 2022-04-27 [facility] of 22:05:00 [facility] BASIC METABOLIC PANEL (NA, K, CL, 2022-04-27 [facility], [facility] of CO2, GLUCOSE, BUN, CREATININE, CA) 22:05:00 [facility] POTASSIUM SERUM 2022-04-27 [facility] of 22:05:00 [facility] BASIC METABOLIC PANEL (NA, K, CL, 2022-04-27 [facility], [facility] of CO2, GLUCOSE, BUN, CREATININE, CA) 22:05:00 [facility] POTASSIUM SERUM 2022-04-27 [facility] of 22:05:00 [facility] BASIC METABOLIC PANEL (NA, K, CL, 2022-04-27 [facility], [facility] of CO2, GLUCOSE, BUN, CREATININE, CA) 22:05:00 [facility] BASIC METABOLIC PANEL (NA, K, CL, 2022-04-27 Sanchez, [facility] of CO2, GLUCOSE, BUN, CREATININE, CA) 15:10:00 [facility] BASIC METABOLIC PANEL (NA, K, CL, 2022-04-27 Sanchez, [facility] of CO2, GLUCOSE, BUN, CREATININE, CA) 15:10:00 [facility] BASIC METABOLIC PANEL (NA, K, CL, 2022-04-27 [facility], [facility] of CO2, GLUCOSE, BUN, CREATININE, CA) 15:10:00 [facility] COVID-19 (ID NOW RAPID TESTING) 2022-04-27 Charlotte Miranda [place] of 00:04:00 [facility] LAB ONLY COVID INTERPRETATION 2022-04-27 Charlotte Miranda Un iversity of 00:04:00 [facility] COVID-19 (ID NOW RAPID TESTING) 2022-04-27 Charlotte Miranda [place] of 00:04:00 [facility] LAB ONLY COVID INTERPRETATION 2022-04-27 Charlotte Miranda Un iversity of 00:04:00 [facility] COVID-19 (ID NOW RAPID TESTING) 2022-04-27 Charlotte Miranda of 00:04:00 [facility] LAB ONLY COVID INTERPRETATION 2022-04-27 Charlotte Miranda Un iversity of 00:04:[address] [facility] [address] THORAX W CONTRAST 2022-04-26 Charlotte Miranda [place] of 23:01:[address] [facility] [address] THORAX W CONTRAST 2022-04-26 Charlotte Miranda [place] of 23:01:[address] [facility] [address] THORAX W CONTRAST 2022-04-26 [facility] 23:01:53 [facility] LIPASE 2022-04-26 [facility] of 22:45:00 [facility] MAGNESIUM 2022-04-26 Maryjane [facility] of 22:45:00 [facility] TROPONIN I 2022-04-26 AlbertvaRoberto [facility] of 22:45:00 [facility] COMP. METABOLIC PANEL ([id number]) 2022-04-26 Charlotte Miranda Un iversity of 22:45:00 [facility] CBC WITH DIFF 2022-04-26 [facility] of 22:45:00 [facility] N-TERMINAL PRO-BNP 2022-04-26 Albert[facility]Roberto [facility] of 22:45:00 [facility] CBC WITH DIFF 2022-04-26 Albert[facility]Roberto [facility] of 22:45:00 [facility] TROPONIN I 2022-04-26 Roberto [facility] of 22:45:00 [facility] N-TERMINAL PRO-BNP 2022-04-26 Roberto [facility] of 22:45:00 [facility] LIPASE 2022-04-26 [facility] of 22:45:00 [facility] COMP. METABOLIC PANEL ([id number]) 2022-04-26 Charlotte Miranda Un iversity of 22:45:00 [facility] MAGNESIUM 2022-04-26 Maryjane [facility] of 22:45:00 [facility] LIPASE 2022-04-26 Roberto [facility] of 22:45:00 [facility] MAGNESIUM 2022-04-26 Maryjane [facility] of 22:45:00 [facility] TROPONIN I 2022-04-26 Charlotte Miranda [place] of 22:45:00 [facility] COMP. METABOLIC PANEL ([id number]) 2022-04-26 Charlotte Miranda Un iversity of 22:45:00 [facility] CBC WITH DIFF 2022-04-26 [facility] of 22:45:00 [facility] N-TERMINAL PRO-BNP 2022-04-26 [facility] of 22:45:00 [facility] HB ECG ROUTINE & RHYTHM STRIP 2022-04-26 Charlotte Miranda Un iversity of 22:15:20 [facility] HB ECG ROUTINE & RHYTHM STRIP 2022-04-26 Charlotte Miranda Un iversity of 22:15:20 [facility] HB ECG ROUTINE & RHYTHM STRIP 2022-04-26 Charlotte Miranda iversity of 22:15:20 [facility] XR CHEST 1 VW 2022-04-26 [facility] of 21:18:17 [facility] XR CHEST 1 2022-04-26 [facility] of 21:18:17 [facility] XR CHEST 1 2022-04-26 [facility] of 21:18:17 [facility] CONSENT/REFUSAL FOR DIAGNOSIS AND 2022-04-26 [facility] 20:55:28 Unassigned, No [facility] CONSENT/REFUSAL FOR DIAGNOSIS AND 2022-04-26 [facility] 20:55:28 Unassigned, No [facility] CONSENT/REFUSAL FOR DIAGNOSIS AND 2022-04-26 [facility] 20:55:28 Unassigned, No [facility] SURGICAL PATHOLOGY EXAM 2022-03-12 Negrito Shaver ty of 15:50:00 [facility] INTUBATION 2022-03-12 Юлия Sutton of 14:53:00 Dee Dee [facility] INGUINAL HERNIORRHAPHY 2022-03-12 Negrito Shaver [facility] of 14:34:00 [facility] OPEN APPENDECTOMY 2022-03-12 Negrito Shaver of 14:34:00 [facility] DAY SURGERY - [facility] 2022-03-12 Doctor [place] of 05:01:00 Unassigned, No [facility] CONSENT/REFUSAL FOR DIAGNOSIS AND 2022-03-09 Doctor [place] of TREATMENT 20:29:26 Unassigned, No [facility] ASSIGNMENT OF BENEFITS 2022-03-09 Doctor Universit y of 20:29:06 Unassigned, No [facility] COVID-19 (ID NOW RAPID TESTING) 2022-03-09 Negrito Shaver [facility] of 20:27:00 [facility] LAB ONLY COVID INTERPRETATION 2022-03-09 Negrito Shaver Un iversity of 20:27:00 [facility] NOTICE OF PRIVACY PRACTICES 2022-03-09 Doctor [facility] ersity of 20:22:10 Unassigned, No [facility] CONSENT/REFUSAL FOR DIAGNOSIS AND 2022-03-09 Doctor [place] of TREATMENT 20:21:53 Unassigned, No [facility] ASSIGNMENT OF BENEFITS 2022-03-09 Doctor Universit y of 20:21:32 Unassigned, No [facility] DISCLOSURE AND CONSENT, MEDICAL 2022-03-05 [facility] of AND SURGICAL PROCEDURES 05:01:00 Unassigned, No [facility] dical Name Branch INTUBATION 2022-02-25 Puma Sandy [place] of 17:01:00 [facility] HB ABO GROUPING 2022-02-25 Stephanie Galvez [place] of 15:52:00 [facility] CONSENT/REFUSAL FOR DIAGNOSIS AND 2022-02-25 Doctor [place] of TREATMENT 13:23:24 Unassigned, No [facility] COVID-19 (ID NOW RAPID TESTING) 2022-02-25 Zander Howe of 13:18:00 [facility] LAB ONLY COVID INTERPRETATION 2022-02-25 Zander Howe Un iversity of 13:18:00 [facility] ASSIGNMENT OF BENEFITS 2022-02-25 Doctor Universit y of 13:04:20 Unassigned, No [facility] [place] 2022-02-25 Doctor [facility] ty of 05:01:00 Unassigned, No [facility] REFERRAL- REQUEST/RESPONSE 2022-02-18 [facility] rsity of 05:01:00 Unassigned, No [place] [facility] XR CHEST 2 VW 2022-02-04 Liv Boucher [place] of 20:28:00 [facility] CBC WITH DIFF 2022-02-04 [facility]:11[facility]00 [facility] BASIC METABOLIC PANEL (NA, K, CL, 2022-02-04 [facility] of CO2, GLUCOSE, BUN, CREATININE, CA) 20:11:00 [facility] HEPATIC FUNCTION PANEL (13405) 2022-02-04 Liv Boucher niversity of (ALB,T.PRO,BILI 20:11:00 [facility],BU/BC,ALT,AST,ALK PHOS) Branch PREALBUMIN, SERUM 2022-02-04 [facility] Plan of Care Planned Activity [...] Future Scheduled Test 2022-07-24 00:00:00 IMM Influenza [facility] Seasonal (>/= 19 yrs) [code = IMM Influenza Seasonal (>/= 19 yrs)] Future Scheduled Test 2022-07-24 00:00:00 IMM Influenza [facility] Seasonal (>/= 19 yrs) [code = IMM Influenza Seasonal (>/= 19 yrs)] Future Scheduled Test 2022-07-24 00:00:00 IMM Influenza [facility] Seasonal (>/= 19 yrs) [code = IMM Influenza Seasonal (>/= 19 yrs)] Future Scheduled Test 2022-07-24 00:00:00 IMM Influenza [facility] Seasonal (>/= 19 yrs) [code = IMM Influenza Seasonal (>/= 19 yrs)] Future Scheduled Test 2021-07-24 00:00:00 IMM Influenza [facility] Seasonal Oct to December (>/= 19 yrs) [code = IMM Influenza Seasonal Oct to December (>/= 19 yrs)] Future Scheduled Test 1996 00:00:00 COVID-19 Vaccine (1) [facility] [code = COVID-19 Vaccine (1)] Future Scheduled Test 1984 00:00:00 COVID-19 Vaccine (#1) [facility] [code = COVID-19 Vaccine (#1)] Future Scheduled Test 1984 00:00:00 COVID-19 Vaccine (#1) [facility] [code = COVID-19 Vaccine (#1)] Future Scheduled Test 1984 00:00:00 COVID-19 Vaccine (#1) [facility] [code = COVID-19 Vaccine (#1)] Future Scheduled Test 1984 00:00:00 COVID-19 Vaccine (#1) [facility] [code = COVID-19 Vaccine (#1)] Future Scheduled Test 1984 00:00:00 COVID-19 Vaccine (#1) [facility] [code = COVID-19 Vaccine (#1)] Future Scheduled Test 1984 00:00:00 COVID-19 Vaccine (#1) [facility] [code = COVID-19 Vaccine (#1)] Future Scheduled Test 1984 00:00:00 COVID-19 Vaccine (#1) [facility] [code = COVID-19 Vaccine (#1)] Future Scheduled Test 1984 00:00:00 COVID-19 Vaccine (#1) [facility] [code = COVID-19 Vaccine (#1)] Future Scheduled Test 1984 00:00:00 COVID-19 Vaccine (#1) [facility] [code = COVID-19 Vaccine (#1)] Future Scheduled Test 1984 00:00:00 COVID-19 Vaccine (#1) [facility] [code = COVID-19 Vaccine (#1)] Future Scheduled Test 1984 00:00:00 COVID-19 Vaccine (#1) [facility] [code = COVID-19 Vaccine (#1)] Future Scheduled Test 1984 00:00:00 COVID-19 Vaccine (#1) [facility] [code = COVID-19 Vaccine (#1)] Future Scheduled Test 1984 00:00:00 Fluoride Varnish [facility] [code = Fluoride Varnish] Future Scheduled Test 1984 00:00:00 Fluoride Varnish [facility] [code = Fluoride Varnish] Future Scheduled Test 1984 00:00:00 Fluoride Varnish [facility] [code = Fluoride Varnish] Future Scheduled Test 1984 00:00:00 Fluoride Varnish [facility] [code = Fluoride Varnish] Future Scheduled Test 1984 00:00:00 Fluoride Varnish [facility] [code = Fluoride Varnish] Future Scheduled Test 1984 00:00:00 Fluoride Varnish [facility] [code = Fluoride Varnish] Future Scheduled Test 1984 00:00:00 Fluoride Varnish [facility] [code = Fluoride Varnish] Future Scheduled Test 1984 00:00:00 Fluoride Varnish [facility] [code = Fluoride Varnish] Encounters Start End Encounter Admission Attending Care Care Encounter Source Date/Time Date/Time Type Type Clinicians Facility Department ID 2022-08-23 Outpatient PARKER NINO [facility] [id number] Univers 17:04:54 PARKER CHAN i [facility] 2022-05-18 Outpatient [facility] [id number] [place] 14:53:18 [id number] Health 2022-01-18 Outpatient [facility] [id number] [place] 04:45:38 [id number] Health 2020-10-19 Inpatient X LEROY [facility] [id number] Univers 02:37:00 AMBAR ity of [facility] 2020-10-06 Inpatient HCAPM JOSE [id number] [facility] 00:50:00 11 [facility] 2023-02-08 2023-02-08 Outpatient R [facility] [id number] Univers 09:00:00 09:00:00 ity of [facility] 2022-08-26 2022-08-26 Transition SHARON Araujo 1.2.840.114 [id number] Univers 00:00:00 00:00:00 of Care Henrietta WILSON 350.1.13.10 [place] [phone] [facility] 403 Branch 2022-08-23 2022-08-25 Hospital Brett Hamilton [facility] 1.2.840.11 4 [id number] Univers 18:36:00 14:05:00 Encounter Nupur Sandoval 350.1.13.10 ity of Adis Dillon 4.2.7.2.686 [facility] [phone] [facility] 110 Branch ([facility]) 2022-08-23 2022-08-23 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 1.2.840.114 [id number] Univers 15:15:00 15:30:00 Visit Parker Chan 350.1.13.10 it[place] [phone] [facility] 316 Branch 2022-08-23 2022-08-23 Office YARELI Chan 1.2.890.700 [id number] Univers 14:00:00 14:30:00 Visit [facility] 350.1.13.10 i ty [place] [phone] [facility] 185 Branch 2022-08-23 2022-08-23 Outpatient R PARKER CHAN [facility] 1 [id number] Univers 14:00:00 14:00:00 PARKER CHAN itjared of [facility] 2022-08-23 2022-08-23 Outpatient R PARKER CHAN [facility] 1 [id number] Univers 14:00:00 14:00:00 PARKER CHAN ity [facility] 2022-08-23 2022-08-23 Prep For LISSETH MedranoTATO 1.2.840.114 [id number] Univers 00:00:00 00:00:[address] [facility] 350.1.13.10 i ty [place] [id number] [facility] 185 Branch 2022-08-10 2022-08-10 Office Genie Laureano UNIVERSI T 1.2.840.114 [id number] Univers 09:00:00 09:30:00 Visit Dariel Hu Holland [facility] 350.1.13. 10 ity of [place] 399.3430775 [facility] 071 Branch 2022-08-10 2022-08-10 [facility] [id number] Univers 09:00:00 09:00:00 DARIEL [facility] 2022-07-09 2022-07-20 Inpatient X [facility] [id number] Univers 18:43:00 16:45:00 [facility] 2022-07-09 2022-07-20 [facility] Iram Payne [facility] 1.2.84 0.114 [id number] Univers 18:43:00 16:45:00 Encounter Lupillo Taylor 350.1.13.10 ity of Zachary Li 4.2.7.2.686 [facility] [id number] [address] 2022-07-12 2022-07-12 Outpatient R [facility] [id number] Univers 13:30:00 13:30:00 ity of [facility] 2022-07-11 2022-07-11 Surgery [facility] 1.2.840.114 [id number] Univers 13:00:00 21:28:00 German BRIONES 350.1.13.10 i ty [place] [phone] [facility] 020 Branch 2022-06-04 2022-06-04 Telephone YARELI Capps 1.2.840.114 [id number] Univers 00:00:00 00:00:[address] [facility] 350.1.13.10 it[place] [phone] [facility] 071 Branch 2022-05-26 2022-05-26 Emergency X ISAEL [facility] ERT [id number] Univers 19:02:00 22:40:00 WATOMERLI ity of [facility] 2022-05-26 2022-05-26 Emergency Janene Taylor [facility] 1.2.840. 114 [id number] Univers 19:02:00 22:40:00 Cindy Akins S ANALI 350.1.13.10 [facility] 4.2.7.2.686 [facility] [phone] [facility] 084 Branch 2022-05-05 2022-05-05 Transition SHARON Araujo 1.2.840.114 [id number] Univers 00:00:00 00:00:00 of Care Henrietta WILSON 350.1.13.10 [place] [phone] [facility] 403 Branch 2022-04-26 2022-05-04 Inpatient X AMELIE FERNANDEZ [facility] [id number] Univers 16:01:00 12:18:00 AMELIE FERNANDEZ ity [facility] 2022-04-26 2022-05-04 [facility] Charlotte Miranda [facility] 1.2.840.11 4 [id number] Univers 16:01:00 12:18:00 Encounter Daniel Parker [facility] 350.1. 13.10 ity of [place] 4.2.7.2.686 [place] Amelie Fernandez [facility] [phone] [address] ([facility]) 2022-04-28 2022-04-28 Anesthesia Gayle Lino 1.2.840.1 1 [id number] Univers 09:38:00 10:28:00 Event Radu Schroeder 70568.1.1 ity of 3.104.2.7 [place] .3.607189 Medica l .8 [place] 2022-04-28 2022-04-28 Surgery Eber WVLAKEISHA 1.2.840.114 [id number] Univers 09:30:00 10:01:00 Derrell Watters SPECIALTY 350.1.13.10 it[place] [phone] Wa dical VICTORY 020 [facility] 2022-04-27 2022-04-27 Anesthesia Fawn Johnson 1.2.840.1 [id number] Univers 12:29:50 12:29:50 Event Sabrina Sanchez 52703.1.1 ity of 3.104.2.7 [place] .3.298430 Medica l .8 [place] 2022-04-26 2022-04-26 Travel 1.2.840.1 1.2.681.634 [id number] Univers 00:00:00 00:00:00 76132.1.1 350.1.13.10 ity of 3.104.2.7 4.[place].7.3.698 [place] .3.061475 084.8 Medica l .8 [place] 2022-04-05 2022-04-05 Telephone Catrett, 1.2.840.5 [id number] Univers 00:00:00 00:00:00 Mitzy 32364.1.1 ity of 3.104.2.7 [place] .3.966576 Medica l .8 [place] 2022-04-02 2022-04-[address] [facility] 1.2.840.114 [id number] Univers 11:45:00 11:45:00 Visit Negrito BRIONES 350.1.13.10 i ty of [place] PROFESS[place] [phone] Wa dical NAL 188 [facility] 2022-04-02 2022-04-02 Office [place], 1.2.840.6 [id number] Univers 11:45:00 11:45:00 Visit Negrito 38288.1.1 ity of [place] 3.104.2.7 [place] .3.785324 Medica l .8 [place] 2022-04-02 2022-04-02 Outpatient Lisa SHAVER [facility] [id number] Univers 11:45:00 11:33:03 NEGRITO ity of [facility] 2022-04-02 2022-04-02 Travel 1.2.840.1 1.2.100.231 [id number] Univers 00:00:00 00:00:00 96932.1.1 350.1.13.10 ity of 3.104.2.7 4.2.7.3.698 [place] .3.033561 084.8 Medica l .8 [place] 2022-03-24 2022-03-24 Telephone Zander Howe 1.2.840.114 [id number] Univers 00:00:00 00:00:00 Y HEALTH 350.1.13.10 i ty of [facility] 4.2.7.2.[place] 367.4725329 [facility] 185 [place] 2022-03-24 2022-03-24 Zander Mcguire 1.2.840.0 [id number] Univers 00:00:00 00:00:00 67906.1.1 ity of 3.104.2.7 [place] .3.493301 Medica l .8 [place] 2022-03-19 2022-03-19 Zander Mcguire 1.2.840.114 [id number] Univers 00:00:00 00:00:00 NAMRATA 350.1.13.10 it y of [facility] 4.2.7.2.686 [place] as [id number] [facility] 037 Branch 2022-03-19 2022-03-19 Telephone Zander Howe 1.2.840.5 [id number] Univers 00:00:00 00:00:00 71985.1.1 ity of 3.104.2.7 [place] .3.157838 Medica l .8 [place] 2022-03-12 2022-03-12 Outpatient Lisa SHAVER [facility] STEPHANIE [id number] Univers 08:13:00 16:20:00 NEGRITO ity of [facility] 2022-03-12 2022-03-12 Hospital [place], [facility] 1.2.840.114 [id number] Univers 08:13:00 16:20:00 Encounter Negrito ANALI 350.1.13.10 ity of [place] ABRAHAMTOM 4.2.7.2.686 [facility] SURGICAL [phone] [facility] CENTER 071 Branch 2022-03-12 2022-03-12 Hospital [place], 1.2.840.6 [id number] Univers 08:13:00 16:20:00 Encounter Negrito 79009.1.1 it y of [place] 3.104.2.7 [place] .3.065494 Medica l .8 Branch 2022-03-12 2022-03-12 Anesthesia Carley Fregoso 1.2.840.1 [id number] Univers 09:44:00 12:14:00 Event Richard Granados 91218.1.1 ity of 3.104.2.7 [place] .3.090419 Medica l .8 Branch 2022-03-12 2022-03-12 Surgery [place] 1.2.840.114 [id number] Univers 09:54:00 12:12:00 Negrito BRIONES 350.1.13.10 i ty of [place] JB 4.2.7.2.686 [facility] SURGICAL [id number] [facility] CENTER 020 Branch 2022-03-12 2022-03-12 Surgery [place], 1.2.840.4 [id number] Univers 09:54:00 12:12:00 Negrito 34604.1.1 ity of [place] 3.104.2.7 [place] .3.544853 Medica l .8 Branch 2022-03-09 2022-03-09 Laboratory Only, Adc Test [facility] 1.2.840. 114 [id number] Univers 10:15:00 10:30:00 Only Negrito Shaver 350.1.13 .10 it[place].2.[place] C[place] 030.8626381 [facility] 353 Branch 2022-03-09 2022-03-09 Laboratory Negrito Shaver 1.2.840.0 [id number] Univers 10:15:00 10:30:00 Only Only, Adc Test 54491.1.1 ity of 3.104.2.7 [place] .3.961407 Medica l .8 [place] 2022-03-09 2022-03-09 Outpatient [facility] [id number] Univers 10:15:00 10:15:00 NEGRITO walker [facility] 2022-03-09 2022-03-09 Travel 1.2.840.1 1.2.661.025 [id number] [id number] Univers 00:00:00 00:00:00 26683.1.1 350.1.13.10 ity of 3.104.2.7 4.2.7.3.698 [place] .3.064214 084.8 Medica l .8 [place] 2022-03-05 2022-03-05 Outpatient [facility] [id number] Univers 10:15:00 12:01:28 NEGRITO aaron [facility] 2022-03-05 2022-03-[address] [facility] 1.2.840.114 [id number] Univers 10:15:00 12:01:28 Visit Negrito ANALI 350.1.13.10 i ty [place].2.[place].2.[place] PROFESS[place] [phone] Wa dical NAL 188 [facility] 2022-03-05 2022-03-05 Outpatient Lisa [facility] [id number] Univers 10:15:00 12:01:28 NEGRITO aaron [facility] 2022-03-05 2022-03-05 Office [place], 1.2.840.2 [id number] Univers 10:15:00 12:01:28 Visit Negrito 47080.1.1 ity of [place] 3.104.2.7 [place] .3.054808 Medica l .8 [place] 2022-03-05 2022-03-05 Outpatient Lisa [facility] [id number] Univers 10:15:00 10:15:00 NEGRITO walker of [facility] 2022-02-25 2022-02-25 Outpatient R ZANDER HOWE [facility] [id number] Univers 08:04:00 13:21:00 ity of [facility] 2022-02-25 2022-02-25 Hospital Zander Howe 1.2.840.114 [id number] Univers 08:04:00 13:21:00 Encounter NAMRATA 350.1.13.10 ity of HOSPITAL 4.2.7.2.686 [place] as [phone] [facility] 104 Branch 2022-02-25 2022-02-25 Hospital Zander Howe 1.2.840.0 [id number] Univers 08:04:00 13:21:00 Encounter 33074.1.1 it y of 3.104.2.7 [place] .3.521669 Medica l .8 Branch 2022-02-25 2022-02-25 Surgery Zander Howe 1.2.797.584 [id number] 1970 Univers 09:35:00 12:45:00 NAMRATA 350.1.13.10 it y of [facility] 4.2.7.2.686 [place] as [phone] [facility] 103 Branch 2022-02-25 2022-02-25 Surgery Zander Howe 1.2.840.6 [id number] Univers 09:35:00 12:45:00 07801.1.1 ity of 3.104.2.7 [place] .3.854181 Medica l .8 Branch 2022-02-25 2022-02-25 Anesthesia Yung Arita 1.2.840.2 [id number] Univers 11:53:00 12:33:00 Event Francis Wong 14403.1.1 ity of 3.104.2.7 [place] .3.371338 Medica l .8 Branch 2022-02-24 2022-02-24 Travel 1.2.840.1 1.2.943.806 1774 3784 Univers 00:00:00 00:00:00 79675.1.1 350.1.13.10 ity of 3.104.2.7 4.2.7.3.698 [place] .3.967617 084.8 Medica l .8 [place] 2022-02-18 2022-02-18 Orders Doctor NEGRITO 1.2.840.114 [id number] Univers 00:00:00 00:00:00 Only Unassigned, NAMRATA 350.1.13.10 ity of [place] [facility] 4.2.7.2.686 Roc as [id number] [facility] 009 [place] 2022-02-18 2022-02-18 Orders Doctor Lillian.2.840.8 [id number] Univers 00:00:00 00:00:00 Only Unassigned, 03078.1.1 ity of [place] 3.104.2.7 [place] .3.880707 Medica l .8 [place] 2022-02-15 2022-02-15 [facility] NEGRITO 1.2.545.211 7488 [id number] Univers 00:00:00 00:00:00 Stephanie Rose TERESA 350.1.13.10 ity of HOSPITAL 4.2.7.2.686 [place] 400.5849952 [facility] 037 [place] 2022-02-15 2022-02-[address]840[address]7 [id number] [id number] Univers 00:00:00 00:00:00 Stephanie Rose 91974.1.1 it y of 3.104.2.7 [place] .3.033355 Medica l .8 [place] 2022-02-09 2022-02-09 [facility] NEGRITO 1.2.537.458 3495 0554 Univers 00:00:00 00:00:00 Stephanie Rose NAMRATA 350.1.13.10 ity of HOSPITAL 4.2.7.2.686 [place] as 466.7570623 [facility] 037 [place] 2022-02-09 2022-02-[address]4 [id number] [id number] Univers 00:00:00 00:00:00 Stephanie Rose 24140.1.1 it y of 3.104.2.7 [place] .3.566955 Medica l .8 [place] 2022-02-08 2022-02-08 NEGRITO Roger 1.2.840.114 [id number] Univers 00:00:00 00:00:00 Management Stephanie TERESA 350.1.13.10 ity of HOSPITAL 4.2.7.2.686 [place] as [id number] [facility] 037 Branch 2022-02-08 2022-02-08 Hector Galvez 1.2.840.9 [id number] Univers 00:00:00 00:00:00 Management Stephanie Rose 59179.1.1 ity of 3.104.2.7 [place] .3.957876 Medica l .8 Branch 2022-02-04 2022-02-04 Hospital Howe [facility] UNIVERSIT 1.2.840.114 9 [id number] Univers 15:17:56 23:59:00 Encounter Y HEALTH 350.1.13.10 ity of CL[place] 4.[place] 795.7710562 [facility] 807 Branch 2022-02-04 2022-02-04 Hospital Howe [facility] 1.2.840.8 [id number] Univers 15:17:56 23:59:00 Encounter 76268.1.1 it y of 3.104.2.7 [place] .3.057219 Medica l .8 Branch 2022-02-04 2022-02-04 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 Zander 1.2.840.9 [id number] Univers 15:30:00 15:47:42 Visit [facility] 63627.1.1 ity of 3.104.2.7 [place] .3.741380 Medica l .8 Branch 2022-02-04 2022-02-04 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 1.2.840.114 9 [id number] Univers 15:30:00 15:45:00 Visit Zander Howe HEALTH 350.1.13.10 it[place] of [place] 4.[place] 968.4427076 [facility] 316 Branch 2022-02-04 2022-02-04 Outpatient R ZANDER HOWE [facility] [id number] [id number] Univers 13:30:00 14:38:59 ity of [facility] 2022-02-04 2022-02-04 Office Zander Howe UNIVERSIT 1.2.840.114 [id number] Univers 13:30:00 14:38:59 Visit Y HEALTH 350.1.13.10 i ty of CLINICS 4.2.7.2.686 Paula malloy [id number] [address] 2022-02-04 2022-02-04 Outpatient Lisa HOWEZANDER Myrick [facility] [id number] Univers 13:30:00 14:38:59 ity of [facility] 2022-02-04 2022-02-04 Office Zander Howe 1.2.840.6 [id number] Univers 13:30:00 14:38:59 Visit 91805.1.1 ity of 3.104.2.7 [place] .3.173604 Medica l .8 [place] 2022-02-04 2022-02-04 Travel 1.2.840.1 1.2.110.564 4475 6099 Univers 00:00:00 00:00:00 89736.1.1 350.1.13.10 ity of 3.104.2.7 4.2.7.3.698 [place] .3.959842 084.8 Medica l .8 [place] 2022-01-14 2022-01-14 Outpatient Lisa HOWEZANDER Myrick [facility] [id number] [id number] Univers 14:45:00 14:45:00 ity [facility] 2021-12-31 2021-12-31 Outpatient Lisa SHYAMZANDER [facility] [id number] Univers 15:45:00 15:45:00 ity of [facility] 2021-12-17 2021-12-17 Outpatient Lisa HOWEZANDER [facility] 02827 [id number] Univers 14:30:00 14:30:00 ity [facility] 2021-11-14 2021-11-15 Outpatient X RABIA [facility] [id number] Univers 17:45:00 18:29:00 DOTTY ity [facility] 2021-11-14 2021-11-15 [facility] Nilo Guillaume [facility] 1.2.8 40.114 [id number] Univers 17:45:00 18:29:00 Encounter Dotty [place] ANALI 350.1.13.10 ity of [place] 4.2.7.2.686 [facility] [phone] [facility] 081 [place] 2021-11-14 2021-11-15 Outpatient X RABIA [facility] MAYI [id number] Univers 17:45:00 18:29:00 ADNAN ity [facility] 2021-11-12 2021-11-12 Outpatient R ZANDER HOWE [facility] [id number] Univers 14:15:00 14:19:16 ity [facility] 2021-11-12 2021-11-12 Office Zander HoweIT 1.2.840.114 [id number] Univers 14:15:00 14:19:[address] [facility] 350.1.13.10 i ty of CLINICS 4.2.7.2.686 [facility] [id number] [facility] 185 [place] 2021-11-12 2021-11-12 Outpatient R ZANDER HOWE [facility] [id number] Univers 14:15:00 14:19:16 ity [facility] 2021-11-02 2021-11-02 Emergency X [facility] ERT [id number] Univers 14:12:00 17:29:00 HARVEY ity [facility] 2021-11-02 2021-11-02 Emergency [facility] 1.2.633.678 [id number] [id number] Univers 14:12:00 17:29:00 Harvey BRIONES 350.1.13.10 i ty of [place] 4.2.7.2.686 [facility] [phone] [facility] 084 [place] 2021-09-22 2021-09-22 Imm/Inj Vaccine, [facility] B 1.2.840.114 [id number] Univers 12:00:25 12:10:25 Visit Thai Arita SPECIALTY 350.1.13.10 ity of CARE 4.2.7.2.686 [facility] AT [phone] Wa stephanie E[address] 2021-09-22 2021-09-22 Office Negrito [facility] 1.2.840.114 [id number] Univers 10:00:00 10:30:00 Visit Tyrone NAJERA 350.1.13.10 ity of [facility] 4.2.7.2.686 Roc as CENTER AT [phone] Wa stephanie Corbett2 [facility] 2021-09-22 2021-09-22 Outpatient R NEGRITO [facility] [id number] Univers 10:00:00 10:00:00 TYRONE ity of [facility] 2021-09-22 2021-09-22 Orders Doctor NEGRITO 1.2.840.114 [id number] Univers 00:00:00 00:00:00 Only Unassigned, NAMRATA 350.1.13.10 ity of [facility] 4.2.7.2.686 Roc as [id number] [address] 2021-06-19 2021-06-19 Orders Doctor MAHAN 1.2.840.114 [id number] Univers 00:00:00 00:00:00 Only Unassigned, NAMRATA 350.1.13.10 ity of [facility] 4.2.7.2.686 Roc as [id number] [address] 2021-05-25 2021-05-26 Emergency Janene Taylor [facility] 1.2.840.114 [id number] 18:28:00 00:07:00 Misa Briones 350.1.13.10 [place] 4.2.7.2.686 [facility] [id number] 2021-05-25 2021-05-25 Emergency X Janene TAYLOR [facility] ERT [id number] Univers 18:28:00 18:28:00 ity of [facility] 2020-12-19 2020-12-19 Orders Doctor MAHAN 1.2.840.114 [id number] 00:00:00 00:00:00 Only Unassigned, NAMRATA 350.1.13.10 [facility] 4.2.7.2.686 [id number] 2020-11-28 2020-11-28 Patient Sharon Bunn 1.2.840.114 [id number] 00:00:00 00:00:00 Outreach Micki Wilson 350.1.13.10 [place] 4.2.7.2.686 [id number] 2020-11-27 2020-11-27 Telephone Angie Aguilar [id number] 00:00:00 00:00:[address] [facility] 4.2.7.2.686 [id number] 2020-10-10 2020-10-19 Inpatient U LEROY [facility] MAYI [id number] Univers 10:35:00 00:30:00 AMBAR ity [facility] 2020-10-06 2020-10-06 Outpatient GarciaCHELSIECL LABO [id number] [facility] 23:33:00 23:33:[address] 2020-10-04 2020-10-04 Emergency X DA PUTNAM [facility] ERT 1 [id number] Univers 14:21:00 14:21:00 JERSEY DA ity [facility] 2020-10-03 2020-10-03 Emergency X [facility] ERT [id number] Univers 21:22:00 21:22:00 ity [facility] 2020-10-02 2020-10-02 Emergency X [facility] ERT [id number] Univers 16:14:00 [facility]14[facility] 2020-09[facility] 2020-10-[address] [id number] Univers 09:58:00 14:26:00 [facility] 2020-09-20 2020-09-[address] [facility] [id number] Univers 13:37:00 13:37:00 IRAM ity [facility] 2020-08-23 2020-08-23 Emergency X [facility] ERT [id number] [facility] 17:57[facility]00 [facility]57[facility] 2020-05-02 Emergency X [facility] ERT [id number] [facility] 02:13:00 02:13:00 [facility] Results Test Description Test Time Test Comments Results Result Comments Source BASIC METABOLIC PANEL (NA, K, CL, CO2, GLUCOSE, BUN, 2022-08 23:25:30 CREATININE, CA) Test Item Value Reference Range Interpretation Comme nts NA (test code = 1424726700) 146 mmol/L 135-145 H K (test code = 8987593764) 3.6 mmol/L 3.5-5.0 CL (test code = 5203200662) 118 mmol/L 98-108 H CO2 TOTAL (test code = 4199023321) 25 mmol/L 23-31 AGAP (test code = 9841795923) 2-16 BUN (test code = 8927895614) 11 mg/dL 7-23 GLUCOSE (test code = 6317060489) 100 mg/dL 70-110 CREATININE (test code = 0.57 mg/dL 0.60-1.25 L 7243179523) CALCIUM (test code = 2549313976) 7.0 mg/dL 8.6-10.6 L eGFR (test code = 2281553071) mL/min/1.73m2 LU (test code = LU) Association [...] tests). Lab Interpretation (test code = Abnormal 05563-3) [facility] GLUCOSE (AUTOMATED)2022-08-24 16:56:15 Test Item Value Reference Range Interpretation Comments POCT GLU (test code = 7976192379) 107 mg/dL 70-110 Lab Interpretation (test code = Normal 36568-9) [facility] Alliance[facility]ams[facility] Whole [id number] 10:25:25 Test Item Value Reference Range Interpretation Comments LACTIC ACID (test code = 1.12 mmol/L 0.50-2.20 9434393031) Lab Interpretation (test code = Normal 68586-2) [facility] GLUCOSE (AUTOMATED)2022-08-24 01:47:16 Test Item Value Reference Range Interpretation Comments POCT GLU (test code = 1802431054) 110 mg/dL 70-110 Lab Interpretation (test code = Normal 85329-7) [facility]2022-11-01 01:35:31 Test Item Value Reference Range Interpretation Comments PHOSPHORUS (test code = 7503566227) 4.5 mg/dL 2.5-5.0 Lab Interpretation (test code = Normal 37078-6) [facility] (NA, K, CL, CO2, GLUCOSE, BUN, CREATININE, CA)2022-08-24 00:48:44 Test Item Value Reference Range Interpretation Comments NA (test code = 144 mmol/L 135-145 4680866554) K (test code = 2.3 mmol/L 3.5-5.0 LL 7913528829) CL (test code = 105 mmol/L 98-108 2003094399) CO2 TOTAL (test code = 28 mmol/L 23-31 0579606848) AGAP (test code = 2-16 8669399811) BUN (test code = 16 mg/dL 7-23 9508398941) GLUCOSE (test code = 73 mg/dL 70-110 6754115852) CREATININE (test code = 0.73 mg/dL 0.60-1.25 3027091537) CALCIUM (test code = 7.6 mg/dL 8.6-10.6 L 6177370762) eGFR (test code = mL/min/1.73m2 5904194568) LU (test code = LU) Association of [...] tests). Lab Interpretation Abnormal (test code = 35984-2) [facility]2022-11-01 00:33:40 Test Item Value Reference Range Interpretation Comments MAGNESIUM (test code = 5150798228) 2.4 mg/dL 1.7-2.4 Lab Interpretation (test code = Normal 26506-8) [facility] WITH [id number] 00:21:20 Test Item Value Reference Range Interpretation Comments WBC (test code = See_Comment [Automated 2977-2) message] The sy stem which generated this [...] (test code = 59.5 fL 38.5-51.6 H 54745-1) RDW-CV (test code = 18.3 % 12.1-15.4 H 788-0) PLT (test code = See_Comment [Automated 777-3) message] The sy stem which generated this result transmitted reference range : 150 - 328 10*3/ ?L. The reference r alisson was not used to interpret this result as normal/abnormal . MPV (test code = 12.4 fL 9.8-13.0 45656-3) NRBC/100 WBC (test See_Comment [Automat ed code = 6199429928) message] The system which generated this result transmitted reference range : 0.0 - 10.0 /100 WBCs. The refer ence range was not u sed to interpret th is result as normal/abnormal . NRBC x10^3 (test code See_Comment [Auto mated = 4988188242) message] The s ystem which generated this result transmitted reference range : 10*3/?L. The reference range was not used to interpret this result as normal/abnormal . GRAN MAT (NEUT) % 59.6 % (test code = 770-8) IMM GRAN % (test code 0.30 % = 4828412135) LYMPH % (test code = 33.5 % 736-9) MONO % (test code = 5.8 % 5905-5) EOS % (test code = 0.4 % 713-8) BASO % (test code = 0.4 % 706-2) GRAN MAT x10^3(ANC) 4.67 10*3/uL 1.99-6.95 (test code = 3589296795) IMM GRAN x10^3 (test 0.00-0.06 code = 2240247912) LYMPH x10^3 (test code 2.62 10*3/uL 1.09-3.23 = 731-0) MONO x10^3 (test code 0.45 10*3/uL 0.36-1.02 = 742-7) EOS x10^3 (test code = 0.03 10*3/uL 0.06-0.53 L 711-2) BASO x10^3 (test code 0.03 10*3/uL 0.01-0.09 = 704-7) Lab Interpretation Abnormal (test code = 43450-0) [facility] (AUTOMATED)2022-08-23 23:55:16 Test Item Value Reference Range Interpretation Comments POCT GLU (test code = 3027138199) 73 mg/dL 70-110 Lab Interpretation (test code = Normal 78177-9) [facility] METABOLIC PANEL (NA, K, CL, CO2, GLUCOSE, BUN, CREATININE, CA)2022-08-23 22:39:56 Test Item Value Reference Range Interpretation Comments NA (test code = 145 mmol/L 135-145 9176086921) K (test code = 2.3 mmol/L 3.5-5.0 LL 7181566040) CL (test code = 104 mmol/L 98-108 4930676927) CO2 TOTAL (test code = 31 mmol/L -31 8405549040) AGAP (test code = 2-16 9666758512) BUN (test code = 15 mg/dL 7-23 3182496084) GLUCOSE (test code = 38 mg/dL 70-110 LL 4837715505) CREATININE (test code = 0.69 mg/dL 0.60-1.25 8468434254) CALCIUM (test code = 7.7 mg/dL 8.6-10.6 L 7108396884) eGFR (test code = mL/min/1.73m2 8725577927) LU (test code = LU) Association of [...] tests). Lab Interpretation Abnormal (test code = 21755-7) [facility] AlliancePREALBUMIN2022-10-31 22:37:29 Test Item Value Reference Range Interpretation Comments PALB (test code = 64514-2) 9.3 mg/dL 18.0-45.0 L Lab Interpretation (test code = Abnormal 80266-2) [facility] AllianceHEPATIC FUNCTION PANEL (71105) (ALB,T.PRO,BILI T,BU/BC,ALT,AST,ALK PHOS)2022-08-23 22:27:43 Test Item Value Reference Range Interpretation Comments TOTAL BILI (test code = 6623681455) 0.6 mg/dL 0.1-1.1 BILI UNCON (test code = 9263795807) 0.2 mg/dL 0.1-1.1 BILI CONJ (test code = 2326877365) 0.0 mg/dL 0.0-0.3 T PROTEIN (test code = 0570748942) 6.4 g/dL 6.3-8.2 ALBUMIN (test code = 5386551122) 2.8 g/dL 3.5-5.0 L ALK PHOS (test code = 7815648071) 110 U/L 34-122 ALTv (test code = 1742-6) 12 U/L 5-50 AST(SGOT) (test code = 0295299672) 24 U/L 13-40 Lab Interpretation (test code = Abnormal 46127-8) [facility] WITHOUT [id number] 21:32:56 Test Item Value Reference Range Interpretation Comments WBC (test code = 6690-2) See_Comment [A utomated message] The system [employer] generated this result transmit annette reference range : 4.20 - 10.70 10*3/?L. The reference range was not used to interpret this result as normal/abnormal . RBC (test code = 789-8) See_Comment L [Au tomated message] The system [employer] generated this result transmit annette reference range [...] 777-3) See_Comment [Au tomated message] The system [employer] generated this result transmit annette reference range : 150 - 328 10*3/?L. The reference range was not used to interpret this result as normal/abnormal . MPV (test code = 12.3 fL 9.8-13.0 61299-8) RDW-CV (test code = 18.7 % 12.1-15.4 H 788-0) RDW-SD (test code = 62.3 fL 38.5-51.6 H 19264-1) NRBC x10^3 (test code = See_Comment [Au tomated message] 9963543905) The system [employer] h generated this result transmit annette reference range : 10*3/?L. The reference range was not used to interpret this result as normal/abnormal . NRBC/100 WBC (test code See_Comment [Au tomated message] = 4744822751) The system [employer] ch generated this result transmit annette reference range : 0.0 - 10.0 /100 WBC s. The reference r alisson was not used to interpret this result as normal/abnormal . IPF % (test code = 4192970874) Lab Interpretation (test Abnormal code = 76040-0) [facility] GLUCOSE (AUTOMATED)2022-07-20 17:02:07 Test Item Value Reference Range Interpretation Comments POCT GLU (test code = 4621067299) 92 mg/dL 70-110 Lab Interpretation (test code = Normal 62453-0) [facility] GLUCOSE (AUTOMATED)2022-07-20 13:05:47 Test Item Value Reference Range Interpretation Comments POCT GLU (test code = 2074615833) 93 mg/dL 70-110 Lab Interpretation (test code = Normal 24812-3) [facility] GLUCOSE (AUTOMATED)2022-07-20 04:43:03 Test Item Value Reference Range Interpretation Comments POCT GLU (test code = 9743831600) 86 mg/dL 70-110 Lab Interpretation (test code = Normal 97573-3) [facility] GLUCOSE (AUTOMATED)2022-07-20 00:59:10 Test Item Value Reference Range Interpretation Comments POCT GLU (test code = 1847663901) 82 mg/dL 70-110 Lab Interpretation (test code = Normal 01481-6) [facility] GLUCOSE (AUTOMATED)2022-07-19 22:05:07 Test Item Value Reference Range Interpretation Comments POCT GLU (test code = 8867247876) 92 mg/dL 70-110 Lab Interpretation (test code = Normal 81916-9) [facility] GLUCOSE (AUTOMATED)2022-07-19 17:04:37 Test Item Value Reference Range Interpretation Comments POCT GLU (test code = 0231682710) 82 mg/dL 70-110 Lab Interpretation (test code = Normal 00085-7) [facility]PH[facility]2022-09-26 15:57:55 Test Item Value Reference Range Interpretation Comments PHOSPHORUS (test code = 5326715902) 1.9 mg/dL 2.5-5 L Lab Interpretation (test code = Abnormal 85764-0) [facility] AllianceCB WITH [id number] 14:58:38 Test Item Value Reference Range Interpretation [...] RDW-SD (test code = 50.6 fL 38.5-51.6 51248-9) RDW-CV (test code = 15.6 % 12.1-15.4 H 788-0) PLT (test code = See_Comment [Automated 777-3) message] The sy stem which generated this result transmitted reference range : 150 - 328 10*3/ ?L. The reference r alisson was not used to interpret this result as normal/abnormal . MPV (test code = 12.4 fL 9.8-13 08003-1) NRBC/100 WBC (test See_Comment [Automat ed code = 3948940450) message] The system which generated this result transmitted reference range : 0.0 - 10.0 /100 WBCs. The refer ence range was not u sed to interpret th is result as normal/abnormal . NRBC x10^3 (test code See_Comment [Auto mated = 9318491486) message] The s ystem which generated this result transmitted reference range : 10*3/?L. The reference range was not used to interpret this result as normal/abnormal . GRAN MAT (NEUT) % 51.4 % (test code = 770-8) IMM GRAN % (test code 0.30 % = 4835526605) LYMPH % (test code = 37.0 % 736-9) MONO % (test code = 9.4 % 5905-5) EOS % (test code = 1.6 % 713-8) BASO % (test code = 0.3 % 706-2) GRAN MAT x10^3(ANC) 1.96 10*3/uL 1.99-6.95 L (test code = 2421110935) IMM GRAN x10^3 (test 0-0.06 code = 9879817012) LYMPH x10^3 (test code 1.41 10*3/uL 1.09-3.23 = 731-0) MONO x10^3 (test code 0.36 10*3/uL 0.36-1.02 = 742-7) EOS x10^3 (test code = 0.06 10*3/uL 0.06-0.53 711-2) BASO x10^3 (test code 0.01-0.09 = 704-7) ELLIPTO/OVAL (test 2+ See_Comment A [Automat ed code = 22669-9) message] The system which generated this result transmitted reference range : (none). The reference range was not used to interpret this result as normal/abnormal . REACT LYMPHS (test Rare code = 8313236892) GIANT PLATELETS (test Present See_Comment A [Auto mated code = 5908-9) message] The system which generated this result transmitted reference range : (none). The reference range was not used to interpret this result as normal/abnormal . Lab Interpretation Abnormal (test code = 70492-7) [facility]2022-07-19 12:58:00 Test Item Value Reference Range Interpretation Comments POCT GLU (test code = 0744658854) 93 mg/dL 70-110 Lab Interpretation (test code = Normal 50946-5) [facility] METABOLIC PANEL (NA, K, CL, CO2, GLUCOSE, BUN, CREATININE, CA)2022-07-19 11:17:35 Test Item Value Reference Range Interpretation Comments NA (test code = 136 mmol/L 135-145 0517629991) K (test code = 4.6 mmol/L 3.5-5 6747258710) CL (test code = 104 mmol/L 98-108 1282370944) CO2 TOTAL (test code = 29 mmol/L 23-31 7514918835) AGAP (test code = 2-16 2993427025) BUN (test code = 10 mg/dL 7-23 0612237021) GLUCOSE (test code = 82 mg/dL 70-110 1240106740) CREATININE (test code = 0.34 mg/dL 0.6-1.25 L 5357917485) CALCIUM (test code = 7.4 mg/dL 8.6-10.6 L 8826094354) eGFR (test code = mL/min/1.73m2 0513828131) LU (test code = LU) Association of [...] tests). Lab Interpretation Abnormal (test code = 72712-6) [facility] GLUCOSE (AUTOMATED)2022-07-19 09:13:05 Test Item Value Reference Range Interpretation Comments POCT GLU (test code = 5838148516) 94 mg/dL 70-110 Lab Interpretation (test code = Normal 49026-0) [facility] GLUCOSE (AUTOMATED)2022-07-19 06:14:35 Test Item Value Reference Range Interpretation Comments POCT GLU (test code = 4003014336) 82 mg/dL 70-110 Lab Interpretation (test code = Normal 53185-9) [facility] GLUCOSE (AUTOMATED)2022-07-19 02:01:34 Test Item Value Reference Range Interpretation Comments POCT GLU (test code = 6475565306) 90 mg/dL 70-110 Lab Interpretation (test code = Normal 98767-4) [facility] GLUCOSE (AUTOMATED)2022-07-18 21:21:09 Test Item Value Reference Range Interpretation Comments POCT GLU (test code = 9317893205) 84 mg/dL 70-110 Lab Interpretation (test code = Normal 64050-4) [facility] GLUCOSE (AUTOMATED)2022-07-18 16:34:48 Test Item Value Reference Range Interpretation Comments POCT GLU (test code = 2758980246) 79 mg/dL 70-110 Lab Interpretation (test code = Normal 16416-6) [facility] GLUCOSE (AUTOMATED)2022-07-18 13:16:05 Test Item Value Reference Range Interpretation Comments POCT GLU (test code = 1125806766) 81 mg/dL 70-110 Lab Interpretation (test code = Normal 47892-9) [facility] (NA, K, CL, CO2, GLUCOSE, BUN, CREATININE, CA)2022-07-18 11:18:39 Test Item Value Reference Range Interpretation Comments NA (test code = 136 mmol/L 135-145 4112482151) K (test code = 4.2 mmol/L 3.5-5 6782415374) CL (test code = 106 mmol/L 98-108 0989213112) CO2 TOTAL (test code = 31 mmol/L 23-31 4503152844) AGAP (test code = 2-16 L 6515030052) BUN (test code = 6 mg/dL 7-23 L 2908755781) GLUCOSE (test code = 87 mg/dL 70-110 3797988565) CREATININE (test code = 0.39 mg/dL 0.6-1.25 L 2912663124) CALCIUM (test code = 7.3 mg/dL 8.6-10.6 L 6425513527) eGFR (test code = mL/min/1.73m2 4154877567) LU (test code = LU) Association of [...] tests). Lab Interpretation Abnormal (test code = 29528-0) [facility] Test Item Value Reference Range Interpretation Comments MAGNESIUM (test code = 9158599884) 1.5 mg/dL 1.7-2.4 L Lab Interpretation (test code = Abnormal 67424-5) [facility]2022-09-25 11:16:44 Test Item Value Reference Range Interpretation Comments PHOSPHORUS (test code = 7118698358) 1.8 mg/dL 2.5-5 L Lab Interpretation (test code = Abnormal 08629-0) [facility] GLUCOSE (AUTOMATED)2022-07-18 10:10:02 Test Item Value Reference Range Interpretation Comments POCT GLU (test code = 4202712034) 92 mg/dL 70-110 Lab Interpretation (test code = Normal 76694-4) [facility] GLUCOSE (AUTOMATED)2022-07-18 06:20:53 Test Item Value Reference Range Interpretation Comments POCT GLU (test code = 4091454792) 84 mg/dL 70-110 Lab Interpretation (test code = Normal 67848-2) [facility] GLUCOSE (AUTOMATED)2022-07-18 01:45:08 Test Item Value Reference Range Interpretation Comments POCT GLU (test code = 3722125572) 76 mg/dL 70-110 Lab Interpretation (test code = Normal 12923-7) [facility] GLUCOSE (AUTOMATED)2022-07-17 21:42:53 Test Item Value Reference Range Interpretation Comments POCT GLU (test code = 3070510541) 81 mg/dL 70-110 Lab Interpretation (test code = Normal 47362-5) [facility] GLUCOSE (AUTOMATED)2022-07-17 21:42:48 Test Item Value Reference Range Interpretation Comments POCT GLU (test code = 0786387722) 81 mg/dL 70-110 Lab Interpretation (test code = Normal 78477-1) [facility] GLUCOSE (AUTOMATED)2022-07-17 16:49:36 Test Item Value Reference Range Interpretation Comments POCT GLU (test code = 0664505744) 90 mg/dL 70-110 Lab Interpretation (test code = Normal 84458-5) [facility] GLUCOSE (AUTOMATED)2022-07-17 13:06:55 Test Item Value Reference Range Interpretation Comments POCT GLU (test code = 7392742453) 80 mg/dL 70-110 Lab Interpretation (test code = Normal 50583-0) [facility]2022-07-17 05:27:10 Test Item Value Reference Range Interpretation Comments POCT GLU (test code = 2226761837) 84 mg/dL 70-110 Lab Interpretation (test code = Normal 62463-7) [facility] GLUCOSE (AUTOMATED)2022-07-17 01:14:31 Test Item Value Reference Range Interpretation Comments POCT GLU (test code = 3998415265) 69 mg/dL 70-110 L Lab Interpretation (test code = Abnormal 77138-4) [facility] GLUCOSE (AUTOMATED)2022-07-16 21:38:28 Test Item Value Reference Range Interpretation Comments POCT GLU (test code = 5173681878) 74 mg/dL 70-110 Lab Interpretation (test code = Normal 84493-8) [facility] GLUCOSE (AUTOMATED)2022-07-16 16:43:07 Test Item Value Reference Range Interpretation Comments POCT GLU (test code = 8713992267) 86 mg/dL 70-110 Lab Interpretation (test code = Normal 69377-2) [facility] 09:36:35 Test Item Value Reference Range Interpretation Comments POCT GLU (test code = 8272259887) 81 mg/dL 70-110 Lab Interpretation (test code = Normal 52074-1) [facility] 05:25:22 Test Item Value Reference Range Interpretation Comments POCT GLU (test code = 3500775476) 90 mg/dL 70-110 Lab Interpretation (test code = Normal 09786-1) [facility] GLUCOSE (AUTOMATED)2022-07-16 01:27:18 Test Item Value Reference Range Interpretation Comments POCT GLU (test code = 2323261519) 90 mg/dL 70-110 Lab Interpretation (test code = Normal 40333-4) [facility]2022-07-15 22:50:24 Test Item Value Reference Range Interpretation Comments POCT GLU (test code = 6793232228) 86 mg/dL 70-110 Lab Interpretation (test code = Normal 03788-8) [facility] GLUCOSE (AUTOMATED)2022-07-15 21:56:15 Test Item Value Reference Range Interpretation Comments POCT GLU (test code = 6216673207) 83 mg/dL 70-110 Lab Interpretation (test code = Normal 51635-4) [facility] GLUCOSE (AUTOMATED)2022-07-15 17:34:16 Test Item Value Reference Range Interpretation Comments POCT GLU (test code = 4635168870) 83 mg/dL 70-110 Lab Interpretation (test code = Normal 64786-1) [facility] GLUCOSE (AUTOMATED)2022-07-15 13:47:19 Test Item Value Reference Range Interpretation Comments POCT GLU (test code = 6316120593) 78 mg/dL 70-110 Lab Interpretation (test code = Normal 07428-4) [facility] GLUCOSE (AUTOMATED)2022-07-15 05:06:41 Test Item Value Reference Range Interpretation Comments POCT GLU (test code = 9306797727) 78 mg/dL 70-110 Lab Interpretation (test code = Normal 58003-0) [facility] GLUCOSE (AUTOMATED)2022-07-15 01:20:38 Test Item Value Reference Range Interpretation Comments POCT GLU (test code = 2545045734) 89 mg/dL 70-110 Lab Interpretation (test code = Normal 08138-8) [facility] GLUCOSE (AUTOMATED)2022-07-14 21:10:53 Test Item Value Reference Range Interpretation Comments POCT GLU (test code = 8002399706) 88 mg/dL 70-110 Lab Interpretation (test code = Normal 02262-5) [facility] IRON BINDING [id number] 20:58:10 Test Item Value Reference Range Interpretation Comments TIBC (test code = 3956749027) 91 ug/dL 250-410 L Lab Interpretation (test code = Abnormal 89365-9) [facility] GLUCOSE (AUTOMATED)2022-07-14 16:20:20 Test Item Value Reference Range Interpretation Comments POCT GLU (test code = 7861895914) 79 mg/dL 70-110 Lab Interpretation (test code = Normal 75753-9) [facility] GLUCOSE (AUTOMATED)2022-07-14 12:47:35 Test Item Value Reference Range Interpretation Comments POCT GLU (test code = 8090742090) 70 mg/dL 70-110 Lab Interpretation (test code = Normal 49806-1) [facility] GLUCOSE (AUTOMATED)2022-07-14 09:08:20 Test Item Value Reference Range Interpretation Comments POCT GLU (test code = 0223981393) 100 mg/dL 70-110 Lab Interpretation (test code = Normal 81896-4) [facility] GLUCOSE (AUTOMATED)2022-07-13 22:29:45 Test Item Value Reference Range Interpretation Comments POCT GLU (test code = 1786598338) 90 mg/dL 70-110 Lab Interpretation (test code = Normal 68459-3) [facility]OLOG[facility] [id number] 21:45:17 Test Item Value Reference Range Interpretation Comments Case Report (test code Surgical Pathology ? ? = [id number]) ?Case: [id number] ? Authorizing Provider: ?German Bowling MD ? Collected: ? 07/11/2022 1528 ?Ordering Location: ? ? [facility] ? ? ?Received: ?07/11/2022 1829 ? [facility] ?Pathologist: ? Laila Ybarra MD PhD ?Specimen: ? ?SMALL INTESTINE, stitch distal ? Final Diagnosis (test p1eutJArYBThg6zwIBCxuG code = 6544500580) FuZzEwMzNcZnRuYmpcdWMx IHtccnRmMVxlcGljMTAxMD YxHJ8kzBlxgFv8yOsrJJGc iiV3lQVxANppe2olAAX2j3 pustlhRFQxCJuyEj0faCGv oBcaJuXfLSBfOTq6uT26YE UwsS7lvWWaPQg0NFSlwQTg fjVrNgToHZMqiHDukPA4SG TpFB0zrgtvEQhbUFstCUZo lmT2UKTdzBWvL1SlVEFxVR 3kflcdIHR8WJxvOKCpPHK9 VpQfXDPux6Uonqt0HtGzlK FyZFxwbGFpblxmczIwXHBh ciBBLiBTTUFMTCBJTlRFU1 ZTSeGwWKRWK5OIICtOTxjh pICdQTQfZAPwDDBFT80CFi KQZYPOB5BFOA6GSgHGWoEJ NkfNAMNgP5eWPAXYNzCBI9 9UYrZCNBnUXl8NKiODCJ5U JAFFXVEVXLNWG6xKSZGaFP BhciAgICAgICBTRUNPTkRB WryaXH1vPF5TQLHXRQTSLK CUQW3WOGGuuvJkBXOlMRCZ SMYJDOZeAEUUA4uSKkDVEq NVRPKIC6CSJ56ngWSyFQJv DOPyIY3DVFVPP0SYVCKGHD TRXxRGIZnAJ35OXvXXVZpD CThSHZ2ZUZVVDSRwbESaMZ SiKQFjLUOFXaNLKB9EC69q YYsVIYeyOq9KPPEzTI7KQ4 FBKRHBYVJOQtOSWLdIC38Q TkNZXHBhclxwYXJcZnMyMi BKdWFuIENhcmxvcyBBbHZh ymK0FX6nveSpgspbFRWjXA oiJxCbEpOiJiEcZgc9NuFU KQkoSZLfCyLyBGizNZL4y3 xydGYxXHNzdGVjZjIyMDAw MXOhd6toPOKvlUFaCbTcFh NcZnRuYmpcdWMxXGRlZmYw d8unh726fUOaj4byTPUqKs R4fEWiXKIjoUltpoz5rCas YcByWAXrt4ipypCxOpDcIL UxFZLqJRPbpKOiL621XNZb SSudd3loa7ZlHGDnjWOfu0 P3FUSWIUbcIvIkP729b2oc m3hqabFslWI7ZZBzPSK0ZO mnavIahbJ1OPefwMOvOpW7 IDtccmVkMFxncmVlbjBcYm h2BNZiS774KFN4qKcmh5cq LQE4LUYyJYVsMgnbTh5loQ GtC183KQIoNSNEMLXlaAf5 WNMpozYsrtSxaBVUx201Q8 00c5pmZSAbhgBofEcLpghg g8poW187JSDgiQWrmdTcHp GwEDDsuQGtsWH7SAGhBH9q zrhoTTpqJRgnJGFvabP2UT LswVEjO0ZsDMUmJJ3sowim ASJ3BIxiILIjVQR0JpSvOV Osp4Jvgfe1MtVwgz5ftp87 TMX1m5QrmOlcAMR0TJH6Hx VpZj0niUVtHLKcPJ3aDqQh fZKeQTLfjj96hJhkSKsepj NmaV1eNiVuEWZldMKjTRIt FU5llIYdAWMttJ9izgdtIR BnYnJkcmhlYWRccGdicmRy Jo8dfFevQGY8RXejP5whhH 9bWxU1IPxcX1begZ3aSTv6 OJttbWX9MAVpjL3jYB4ldi ucv6apAPveGOagZQMreqG9 mjS6KLOjbULqS8LeuC0eVB WpLY3inzkcw2jnLMR5EEuu QCRoQVK6RtMwZRPuz7Caqq e1ZcLhl0ArwIWnSZosE26n x797YEWchbXaB5tctVXlky jrsWSjerpnMLrwirV6ALTx XHBsYWluXGYxXGZzMjBcbG FuZzEwMzNcaGljaFxmMVxk MdAkEIQdQHtyF2jgDkGkK6 YyXGZzMjBccGFyIEkgaGF2 DXTcRDQwy71vcWm7MJDrcv ciu7WuBQVntEJitDJjeF6y yxYpr7sqLORvTCPlALXtS0 EpLTC5iFCjQCFxpAShaQQ3 NP1rcrFpLC3eUYIoGtuqgf McyFGrgbMbYDFdVGxws5zq HR3lZVPzeAguiB7spXX6SW Orq5ogdMNgyBHzi3sqm7Ky bmFtZShzKSBtYXkgYXBwZW BqCR5aGWNetEHwofZiz0P4 HeenuOSxxccmPpvvtsP9TE iztmvrFZBgUTshJ1mtHxQp NXTsfEngDqcfl1UaYUXgXA ZzMjhccGFyfX0= Clinical Information Small bowel (test code = obstruction [id number]) Gross Description (test r2eogTBbSBJzqPUOMGDrOI code = [id number]) IfHI7lmNjdiIe7iTlwRUFa ucS6uZLlNLxwi1iwNTK6i5 llbiANClxkZWZmMVxwYXBl kxihCeI9YGkiZVQkhulwMT q9CKfzCEPrePA0TJIalYIr L8IqBFNqZU3rxug0EQV4BD ciGOPvQyV8XVUnZuAwUfbd AAx2DOFqzrU8Ins6BZXkWI TueFWml6X4IVzcbimoIUBe qIFfN690HHi3IOUanI0nfQ XfS7rgWWTjVEwrGIAqMVdw oLPsYHj8FKjai1IxbMErZE pccGFyZCANCntcKlxlcGlj g4HftMJtPZhhGPUnOKQiBY xkvdgoBPz8JZLoLUlrdOBy KK5taDxkKtoatFmid3TvnX BcXGlkIDUxMDAyIFxcZGIg AJ5WAsZeZBM0NBY9XzIlWP u0KBh7PA2ZIdZfHKPuJANh HtC9KZEoGMa3SJkkBC3NHF H8Olt2SEJ7CUJtCHNqJtAj DFt3MUVgSCsmRVShdWQwWC ykPvHyLDWgCNfqgONsWM2y fVxwbGFpblxmczIwIFNQRU UWZGGKXGOmcCQmCU8LYKEc FVzfNGMetHARMVD1QP6iKF ANClxsdHJwYXJcbGluMFxy kD8oEN9GCOa3diHzCRWpEx CmN2HeP9joKL1vRMMpnwAh MFJqsMOuIMIlwyGmn7SmEW mutpvtoAYbTWofKXV4tXUg QKDpNBJiXWElYS86D0Ydhv FtZSwgVUggbnVtYmVyLCBh bmQgZGVzaWduYXRlZFxjZj SfTPe0ZRGsGYNsTfnnp6Sq rLYhYFWar2RdiSd1THQnKP CzRaq7SXqjMTZaYFJnU45i xeJly3Ajl54tiOuohK65WH Z7oA6rFBgeJJ40HIOiUVag HQhxiqn2gZG4HHCcLXDfcJ DsirCbgHUkbG5dNFLkvjLa QHYegCAlvEDmMDS9DFAkI2 bnPJ3eLKGfURPvvlynimSa DNL2pXEkKNBwj0W6dQAlHM Y7QVUnDAInaTW7UZicLA8h OpNHaAGrHBPruaUgCNO7wE PgJIHcumGmYS49YK1kNUNd WLOpr9wjpBU2DGghFAVgBN UebMYhfz1vBTUeQDYdkFY2 YMpawIJtF4ewAOOrNCU2oP TgEMBggbBrGOAntS8mUBEm NI6kNFNuey31pSh9TIQydj MiPQ0hFPYvk9SaUSrfgRub vOXmv7PlsZWdVkDbQS2tBS UnRLIgp24rbWcpXREoh0zz aNShOZGyQV9lHXiySSTsIV AjkDEpMTkvCK7xJZ9iZJP6 aqIpCSAnRKpglM9mcnZhEv AqpIEyh7TbUQ6bDNfanS9t nhxdM3NeP95bauVbdE3iLZ acZcB7wdUcSVAjHJ6aRRNm TXCgXLW4vKNoyoTfBVmivo FvYGGqcl3oLMhjJW5ny1Pn dGVyeSBpcyBwYWxwYXRlZC Ojm8SacVopTFUsh0NoNxru RTg0yKKhNR1cXSQoV2ZiKK ahZBWhni0lX9IpQFKqmJPo oM2caGyeZMRujbPgpY5czi JmfoApIUEhCOhcPS00NI5c YSMlo4NtUWshCuFxW46yrK 7rvENcY5XaRItyPf5eJXQi BGWvIC8tvJOgIKQndUOxxJ BoKZE2TN7sGVVlepQiMQ7z EP4aOP3uQOSmyKcmWV92bS JlWDAeCD6sZaIljtKuKC23 WZUlwgDbn8IsxKpfmpMgQR FmIQL3Xu6isQXoNGXhbrCP OE5HHp7gqYLiPB7NHQOqxq KXFiRyTaCYASWfO9qlJVFu bWFsbCBmcmFnbWVudCBvZi Xxt1ngaUiud6FqzExeNGBs EYUspK4aJDVurHwfBFn8QS BhciANCkEyLUEzOiBMYXJn MZSjVDnhEH18MT9aYBCrn3 DlOZJfot11rA7ceFJdVFIs xI1xEXRtvXuvCHj8PIIrps RUNyR7VqIRIPRqFSTwIBtz QX39DF3hLUCsp1KjAXBxaV H0BBgsaKMcL5jtYVCjzyMx cmVseVxwYXIgDQpBNTogU2 CfhWqnmlLkmIL0fFRlb5S7 dXJlZCBhcmVhIDQuMCBjbS Jzzg2eDJUgm5FgeCPvOASk iD1ynTSmXI0WSNL2NRDzA3 Zco30io2WhdPQlEBpzrZOg TCUaVADsk1ZmYm52PEafm5 JzgEHzMfKxSP6rSOHcDQXb x54wxCdpLSPmq5qoeEYoYP UbKPysTLRoENcYMgipBN2p zvZghDVaWDLol8sraMM1KL heQVLylcLNDvL7VkARy19j yUqttBcivr8hJQUoHY6rdS YkkSIvMZT4mO2pIXckLPCz TDddnKIsOC9BBVHfNIHUyY llZXNoYSBXaWxoZWxtLCBN RCANClxlcGljTmVzdERvYz XwzsH2AJStpERiXLR5HI4o OMXcrnrrURFkHJSgOJE7TC hsuT68uVZgCHNuCEPyrYLh fRrasVFxwjELGfxpcI0qSl Dqa5pbuDf0HRRYEiumfPUj enaybiJ1JPCfn8xbxZdcr7 LfjVFdRS0moSyqlT8pQmZh NiANCn0= Disclaimer (test code = e4ppmNCdUIEiv4ycRFOzcB [id number]) FuZzEwMzNcZnRuYmpcdWMx AMcvnmInEXdmr7MnD3OhOs AwMFxhbnNpXGRlZmxhbmcx ZCBvRZU3uuZiSPZbMQnoSZ EvZDdsCe3jhNPhiCusWwRu STMne1mtqaXCUCykZjNhP6 92ANCqTWvik9yls7QcDUZb zXWxt9Q4VDRLlwttzYa1eO gwV46ya2L3VglrK7eeCPGu CYLlZ8JwYA0eMOYeWdg4JL Q5YKN2SCGvCKBhZ5TpQA2f HYWbwSIdVJo6w8czdQigPX HeZGF5o2pmIBrqoyYjCP7d zj1trWg9e3ijmbOoNDRaDL YcvRWVDXFwF7QuiYseYp9k tIs8kKbrRursJLF9Ehh9EF 9xxh73vas2zEfrZYOzhnae BwG4CKinOPThlfcjWKw6SD ofQWRaxHQ7BTNavRAbE4Et SPNrBY2abay8TAZ7YXetXU XgNcW7JVJguPXlQSYpePmm ZKxfu436OYH6JsVsXV1pK1 Bex1Z7nN5brZPvUTHfyCQy TtRzPWPowf0tuLGrPChtc9 NxCKI8jxC6eXEnoEKlQLPh LL44Kazfd6QgLvdfu3CkK3 8uiHI7SGoef3weFI9bZcN3 yeTtWYkdi6ajwF0kXcF7VH hiPH4aWY0yIOSepB5wokqt XHBnYnJkcmhlYWRccGdicm ZgTn1aeEmnCLK8IByfN8xt zV2pYsS9PNbbX8nhgK2iTS x1SBhbdHT9HNNeqH4gHA5r wfgnl7kgRFxaBBmxSQDwra E8vvT6BRCbaUBuX4WkvJ2b NRBxDN1phxbvw4pzOIU2XX niXAFiTRB4RtUtIPSko8Kx wef9MoCuu7JytEDfIGlyN9 5cf785QBCvlfLmI0yvaITy dwkvhJGjlmokLQotxdL1WN OgapLym4BkCESbNKG2EFat XHrdcORwJVSwaGtba9whM7 RscGFyXHBsYWluXGYxXGZz MjBcbGFuZzEwMzNcaGljaF khIXiqGkNtYNLiVVopX8sx PfReX6MyMLPuFtEgpGJyO6 ggVGhpcyByZXBvcnQgbWF5 KTtrN9i1OJBibdOirIv4fm ZvZbJeQVTyIHF8YBvauPXj IVLgc8DerxrnoZXvCk5xkZ YwLXUnsW3tTMMiXNVsFKgi ZJ5wvHd3RWTUvIVqlRRoLp BLLXKtEU14ipBiYQUFsgij c2M6ILvgTHEwa0MrwGInT0 wbo9MmXAAdm28hXY1qk2H4 v7jkRTR1ZC9ks9AcUFWqnA PbxPCpIWVad4Xbyasya2Xd KQEhfdPmj0ByILHkufVwfK PhCKIsxqSahv9kaeGuPNWy QNNnE0IjssflxTjxulJwWQ Epat1xcrVzCGJ8FRJVTWEb RCMag1QzfV4vuVUSRDG3zN Jlxa8znmJZyCMjBFQktj72 MFWhQI2mA3zbUFPtZLLbqy WhfUJdk0FcIGVaqQC0wUGd AG4KRyOAz15wZGLzRELGcn SxXCTrcHahnWE5wxB6tU4w IChGREEpLlx+IFRoZSBGRE DbHT0uzmUxz6GutzGovMus HLAfuYKai5VlyFEgu1JppP rsk8OirHPswDQiQC3uIAJg clxwYXIgVVRNQiBMYWJvcm J3q6TsTGHlYUCpTJJ4jWlp uwb7WCVhoV2eQIRsQ0qxoz yuVHbvMTEmz2NrcY9zvXYI jIVti3NuxUXzvCOIuFEoIJ 3asfWfASdTCKvIEVD5bpDi HNOin2YxVOwdL9qxH14pnU graOx1wXB2IOH2mT9zKas+ IFxwYXJccGFyIEFwcHJvcH LiDMGkvVmicyAgA1RipwIr rK6ntGSuqdTxIB6sTK4kH8 Z7fEJvREUmbjYsz5duUQgq dmUgYmVlbiByZXZpZXdlZC Knp2IsVYgzQBG7RTjsbvSm bmNsdWRpbmcgSCZFLCBTcG ObpGSiSEW2QLhvwxLildOt SG9tlN1qzBktlG2ulDXmwZ R0grzbJDTiFORpmWucDBSb TA2wqZStPFRipvFLsZzatM OgnS1wS8NiAPVsCOQjvt6p VTBudK8wAZkpl5QwraxlRI YgCBDtBZTrjbVrzn2pJOTa cYHFAW5VOViubVYzz2Dclx PzB5sJEUO6VDIjQlVhPczv YQUumJHwjDRcEZApum18PX IidI6lxWpeHFOtcF0zfS2k jUxamX0eFwEvUqIvYPzkIN 3sUJNeN3nicNLuTYNuSEHi P2kuGhOupN7koGkdPCaqLx ObNjWmAAymZGO8lO== Embedded Images (test code = 1542646433) [facility] GLUCOSE (AUTOMATED)2022-07-13 21:03:47 Test Item Value Reference Range Interpretation Comments POCT GLU (test code = 6101975902) 57 mg/dL 70-110 L Lab Interpretation (test code = Abnormal 01276-2) [facility] 16:38[facility]36 Test Item Value Reference Range Interpretation Comments PALB (test code = 93820-4) 4.1 mg/dL 18-45 L Lab Interpretation (test code = Abnormal 35125-5) [facility] GLUCOSE (AUTOMATED)2022-07-13 15:52:08 Test Item Value Reference Range Interpretation Comments POCT GLU (test code = 3938241681) 167 mg/dL 70-110 H Lab Interpretation (test code = Abnormal 41942-8) [facility] GLUCOSE (AUTOMATED)2022-07-13 15:18:37 Test Item Value Reference Range Interpretation Comments POCT GLU (test code = 6547767946) 160 mg/dL 70-110 H Lab Interpretation (test code = Abnormal 39373-2) [facility] WITH [id number] 15:11:15 Test Item Value Reference Range Interpretation Comments WBC (test code = See_Comment [Automated message] 6690-2) The system [employer] generated this result transmitted ref erence range: 4.20 - 1 0.70 10*3/?L. The reference range was not used to int erpret this result as normal/abnormal . RBC (test code = See_Comment L [Automated message] 789-8) The system [employer] generated this result transmitted ref erence range: [...] (test code = 56.9 fL 38.5-51.6 H 18964-9) RDW-CV (test code = 17.2 % 12.1-15.4 H 788-0) PLT (test code = See_Comment [Automated message] 777-3) The system [employer] generated this result transmitted ref erence range: 150 - 32 8 10*3/?L. The reference range was not used to int erpret this result as normal/abnormal . MPV (test code = 11.3 fL 9.8-13 22004-5) NRBC/100 WBC (test See_Comment [Automat ed message] code = 0953809225) The syste m which generated this result transmitted ref erence range: 0.0 - 10 .0 /100 WBCs. The reference range was not used to int erpret this result as normal/abnormal . NRBC x10^3 (test See_Comment [Automated message] code = 6106795448) The [employer] which generated this result transmitted ref erence range: 10*3/?L. The reference range was not used to int erpret this result as normal/abnormal . GRAN MAT (NEUT) % 75.1 % (test code = 770-8) IMM GRAN % (test 0.40 % code = 9157701775) LYMPH % (test code = 18.0 % 736-9) MONO % (test code = 5.1 % 5905-5) EOS % (test code = 1.3 % 713-8) BASO % (test code = 0.1 % 706-2) GRAN MAT x10^3(ANC) 5.26 10*3/uL 1.99-6.95 (test code = 4300741874) IMM GRAN x10^3 (test 0.03 10*3/uL 0-0.06 code = 8658553541) LYMPH x10^3 (test 1.26 10*3/uL 1.09-3.23 code = 731-0) MONO x10^3 (test 0.36 10*3/uL 0.36-1.02 code = 742-7) EOS x10^3 (test code 0.09 10*3/uL 0.06-0.53 = 711-2) BASO x10^3 (test 0.01-0.09 code = 704-7) ELLIPTO/OVAL (test 2+ See_Comment A [Automat ed message] code = 04087-5) [facility] result transmitted ref erence range: (none). The reference range was not used to int erpret this result as normal/abnormal . HGB C CRYSTALS (test Suggestive of Red bl ood cell code = 1628923692) morpholog y suggestive of Hemoglobin C crystals. Hemog lobin electrophoresis recommended for confirmation. SCHISTOCYTES (test 1+ A code = 800-3) TARGET CELLS (test 2+ See_Comment A [Automat ed message] code = 92957-6) The system [employer] generated this result transmitted ref erence range: (none). The reference range was not used to int erpret this result as normal/abnormal . BANDS (test code = Increased A 0509095419) DOHLE BODIES (test Present A code = 7792-5) Lab Interpretation Abnormal (test code = 18532-3) [facility]13 15:03:40 Test Item Value Reference Range Interpretation Comments POCT GLU (test code = 4029654942) 34 mg/dL 70-110 LL Lab Interpretation (test code = Abnormal 69566-0) [facility] METABOLIC PANEL (NA, K, CL, CO2, GLUCOSE, BUN, CREATININE, CA)2022-07-13 14:55:02 Test Item Value Reference Range Interpretation Comments NA (test code = 151 mmol/L 135-145 H 1086657934) K (test code = 3.0 mmol/L 3.5-5 L 7965961307) CL (test code = 120 mmol/L 98-108 H 7927193257) CO2 TOTAL (test code = 26 mmol/L 23-31 6847295420) AGAP (test code = 2-16 1088029925) BUN (test code = 17 mg/dL 7-23 3703853087) GLUCOSE (test code = 34 mg/dL 70-110 LL 5126333537) CREATININE (test code = 0.76 mg/dL 0.6-1.25 3399237255) CALCIUM (test code = 7.8 mg/dL 8.6-10.6 L 5887651599) eGFR (test code = mL/min/1.73m2 2032499579) LU (test code = LU) Association of [...] tests). Lab Interpretation Abnormal (test code = 93875-3) [facility] 14:49:59 Test Item Value Reference Range Interpretation Comments MAGNESIUM (test code = 4337815855) 2.1 mg/dL 1.7-2.4 Lab Interpretation (test code = Normal 05437-1) [facility] 14:49:59 Test Item Value Reference Range Interpretation Comments PHOSPHORUS (test code = 6135246916) 2.7 mg/dL 2.5-5 Lab Interpretation (test code = Normal 10230-4) [facility] 22:45:16 Test Item Value Reference Range Interpretation Comments PALB (test code = 44298-2) 5.1 mg/dL 18-45 L Lab Interpretation (test code = Abnormal 33750-4) [facility] + Lactic [id number] 20:56:10 Test Item Value Reference Range Interpretation Comments PH (test code = 2) 7.35-7.45 L PCO2 (test code = See_Comment H [Automate d 7397598411) message] The sy stem which generated this result transmitted reference range : 35 - 45 mmHg. The reference range was not used to interpret this result as normal/abnormal . PO2 (test code = See_Comment H [Automated 8862535641) message] The sy stem which generated this result transmitted reference range : 80 - 100 mmHg. The reference range was not used to interpret this result as normal/abnormal . HCO3 (test code = See_Comment [Automate d 5882166133) message] The sy stem which generated this result transmitted reference range : 22 - 26 mEq/L. The reference range was not used to interpret this result as normal/abnormal . BE (test code = See_Comment L [Automated 8425934729) message] The sy stem which generated this result transmitted reference range : -3.0 - 3.0 mEq/ L. The reference r alisson was not used to interpret this result as normal/abnormal . THB (test code = 8.0 g/dL 13.5-18 LL 8774177850) %O2HB (test code = 96.3 % 94-99 0501053962) %COHB ART (test code = 0.5 % 0-1.5 7109384458) %METHB ART (test code = 0.3 % 0.4-1.5 L 6335752964) VOL%O2 ART (test code = 11.1 % 15-23 L 5320696201) NA (test code = 145 mmol/L 135-145 2015758014) K+ (test code = 3.6 mmol/L 3.5-5 4184268657) AC CA IONZ (test code = 5.30 mg/dL 4.5-5.3 9511146862) GLUCOSE (test code = 163 mg/dL 70-110 H 5393247630) LACTIC ACID (test code 0.49 mmol/L 0.5-2.2 L = 9512413036) Lab Interpretation Abnormal (test code = 53633-0) [facility] + Lactic [id number] 20:56:10 Test Item Value Reference Range Interpretation Comments PH (test code = 2) 7.35-7.45 L PCO2 (test code = See_Comment H [Automate d 1314806659) message] The sy stem which generated this result transmitted reference range : 35 - 45 mmHg. The reference range was not used to interpret this result as normal/abnormal . PO2 (test code = See_Comment H [Automated 6282995974) message] The sy stem which generated this result transmitted reference range : 80 - 100 mmHg. The reference range was not used to interpret this result as normal/abnormal . HCO3 (test code = See_Comment [Automate d 6557432032) message] The sy stem which generated this result transmitted reference range : 22 - 26 mEq/L. The reference range was not used to interpret this result as normal/abnormal . BE (test code = See_Comment L [Automated 5194480094) message] The sy stem which generated this result transmitted reference range : -3.0 - 3.0 mEq/ L. The reference r alisson was not used to interpret this result as normal/abnormal . THB (test code = 8.0 g/dL 13.5-18 LL 8903428496) %O2HB (test code = 96.3 % 94-99 4606498949) %COHB ART (test code = 0.5 % 0-1.5 5308980314) %METHB ART (test code = 0.3 % 0.4-1.5 L 8187633722) VOL%O2 ART (test code = 11.1 % 15-23 L 9421202179) NA (test code = 145 mmol/L 135-145 3099382683) K+ (test code = 3.6 mmol/L 3.5-5 7810747080) AC CA IONZ (test code = 5.30 mg/dL 4.5-5.3 6173865094) GLUCOSE (test code = 163 mg/dL 70-110 H 3136304069) LACTIC ACID (test code 0.49 mmol/L 0.5-2.2 L = 9053313477) Lab Interpretation Abnormal (test code = 86920-2) [facility] AllianceLams[facility] Whole [id number] 16:12:23 Test Item Value Reference Range Interpretation Comments LACTIC ACID (test code = 1.23 mmol/L 0.5-2.2 9773390308) Lab Interpretation (test code = Normal 09246-3) [facility] [id number] 16:12:23 Test Item Value Reference Range Interpretation Comments LACTIC ACID (test code = 1.23 mmol/L 0.5-2.2 6281121751) Lab Interpretation (test code = Normal 01208-4) [facility]. METABOLIC PANEL (22405)2022-07-10 00:41:51 Test Item Value Reference Range Interpretation Comments NA (test code = 137 mmol/L 135-145 3601109070) K (test code = 2.6 mmol/L 3.5-5 LL 8836093906) CL (test code = 93 mmol/L 98-108 L 5501597315) CO2 TOTAL (test code = 31 mmol/L 23-31 0996421060) AGAP (test code = 2-16 3408597253) BUN (test code = 28 mg/dL 7-23 H 3938472440) GLUCOSE (test code = 140 mg/dL 70-110 H 3401134871) CREATININE (test code = 2.04 mg/dL 0.6-1.25 H 2371221482) TOTAL BILI (test code = 0.6 mg/dL 0.1-1.0 6586434641) CALCIUM (test code = 7.6 mg/dL 8.6-10.6 L 8273514445) T PROTEIN (test code = 7.3 g/dL 6.3-8.2 5148435271) ALBUMIN (test code = 3.2 g/dL 3.5-5 L 3647233815) ALK PHOS (test code = 146 U/L 34-122 H 1101742600) ALTv (test code = 13 U/L 5-50 1742-6) AST(SGOT) (test code = 17 U/L 13-40 9977640023) eGFR (test code = mL/min/1.73m2 3510812249) LU (test code = LU) Association of [...] tests). Lab Interpretation Abnormal (test code = 69358-4) [facility]. METABOLIC PANEL (18406)2022-07-10 00:41:51 Test Item Value Reference Range Interpretation Comments NA (test code = 137 mmol/L 135-145 0164690197) K (test code = 2.6 mmol/L 3.5-5 LL 9974796322) CL (test code = 93 mmol/L 98-108 L 5154604342) CO2 TOTAL (test code = 31 mmol/L 23-31 7186635067) AGAP (test code = 2-16 7043875120) BUN (test code = 28 mg/dL 7-23 H 2750548099) GLUCOSE (test code = 140 mg/dL 70-110 H 2869294894) CREATININE (test code = 2.04 mg/dL 0.6-1.25 H 7851667059) TOTAL BILI (test code = 0.6 mg/dL 0.1-1.5 7975116553) CALCIUM (test code = 7.6 mg/dL 8.6-10.6 L 7124685948) T PROTEIN (test code = 7.3 g/dL 6.3-8.2 0595056721) ALBUMIN (test code = 3.2 g/dL 3.5-5 L 1329919641) ALK PHOS (test code = 146 U/L 34-122 H 7567305438) ALTv (test code = 13 U/L 5-50 1742-6) AST(SGOT) (test code = 17 U/L 13-40 9689473932) eGFR (test code = mL/min/1.73m2 9673569317) LU (test code = LU) Association of [...] tests). Lab Interpretation Abnormal (test code = 43565-9) [facility] 00:33:02 Test Item Value Reference Range Interpretation Comments MAGNESIUM (test code = 8837449984) 2.3 mg/dL 1.7-2.4 Lab Interpretation (test code = Normal 38373-5) [facility] 00:33:02 Test Item Value Reference Range Interpretation Comments MAGNESIUM (test code = 2595033103) 2.3 mg/dL 1.7-2.4 Lab Interpretation (test code = Normal 67583-1) [facility] 00:32:22 Test Item Value Reference Range Interpretation Comments LIPASE (test code = 7124805726) 18 U/L 0-220 Lab Interpretation (test code = Normal 54782-4) [facility] 00:32:22 Test Item Value Reference Range Interpretation Comments LIPASE (test code = 9902436094) 18 U/L 0-220 Lab Interpretation (test code = Normal 17676-4) [facility] WITH [id number] 00:18:00 Test Item Value Reference Range Interpretation [...] RDW-SD (test code = 47.0 fL 38.5-51.6 86480-8) RDW-CV (test code = 15.4 % 12.1-15.4 788-0) PLT (test code = See_Comment H [Automated 777-3) message] The system which generated this result transmit annette reference range : 150 - 328 10*3/ ?L. The reference range was not u sed to interpret th is result as normal/abnormal . MPV (test code = 10.7 fL 9.8-13 50669-8) NRBC/100 WBC (test See_Comment [Automat ed code = 0179622531) message] The system which generated this result transmit annette reference range : 0.0 - 10.0 /100 WBCs. The reference range was not used to interpret this result as normal/abnormal . NRBC x10^3 (test code See_Comment [Auto mated = 6825716348) message] The system which generated this result transmit annette reference range : 10*3/?L. The reference range was not used to interpret this result as normal/abnormal . GRAN MAT (NEUT) % 83.3 % (test code = 770-8) IMM GRAN % (test code 0.50 % = 5895288048) LYMPH % (test code = 10.1 % 736-9) MONO % (test code = 5.9 % 5905-5) EOS % (test code = 0.0 % 713-8) BASO % (test code = 0.2 % 706-2) GRAN MAT x10^3(ANC) 10.78 10*3/uL 1.99-6.95 H (test code = 7284526273) IMM GRAN x10^3 (test 0.06 10*3/uL 0-0.06 code = 0307135857) LYMPH x10^3 (test code 1.31 10*3/uL 1.09-3.23 = 731-0) MONO x10^3 (test code 0.76 10*3/uL 0.36-1.02 = 742-7) EOS x10^3 (test code = 0.06-0.53 L 711-2) BASO x10^3 (test code 0.01-0.09 = 704-7) Lab Interpretation Abnormal (test code = 97990-7) [facility] WITH [id number] 00:18:00 Test Item Value Reference Range Interpretation Comments WBC (test code = See_Comment H [Automated 5690-2) message] The system which generated this result transmit annette reference range : 4.20 - 10.70 10*3/?L. The reference range was not used to interpret this result as normal/abnormal . RBC (test code = See_Comment [Automated 749-8) message] The system which generated this result [...] RDW-SD (test code = 47.0 fL 38.5-51.6 68059-1) RDW-CV (test code = 15.4 % 12.1-15.4 788-0) PLT (test code = See_Comment H [Automated 777-3) message] The system which generated this result transmit annette reference range : 150 - 328 10*3/ ?L. The reference range was not u sed to interpret th is result as normal/abnormal . MPV (test code = 10.7 fL 9.8-13 32745-0) NRBC/100 WBC (test See_Comment [Automat ed code = 5053730320) message] The system which generated this result transmit annette reference range : 0.0 - 10.0 /100 WBCs. The reference range was not used to interpret this result as normal/abnormal . NRBC x10^3 (test code See_Comment [Auto mated = [id number]) message] The system which generated this result transmit annette reference range : 10*3/?L. The reference range was not used to interpret this result as normal/abnormal . GRAN MAT (NEUT) % 83.3 % (test code = 770-8) IMM GRAN % (test code 0.50 % = 5101252046) LYMPH % (test code = 10.1 % 736-9) MONO % (test code = 5.9 % 5905-5) EOS % (test code = 0.0 % 713-8) BASO % (test code = 0.2 % 706-2) GRAN MAT x10^3(ANC) 10.78 10*3/uL 1.99-6.95 H (test code = 1997139086) IMM GRAN x10^3 (test 0.06 10*3/uL 0-0.06 code = 7423854753) LYMPH x10^3 (test code 1.31 10*3/uL 1.09-3.23 = 731-0) MONO x10^3 (test code 0.76 10*3/uL 0.36-1.02 = 742-7) EOS x10^3 (test code = 0.06-0.53 L 711-2) BASO x10^3 (test code 0.01-0.09 = 704-7) Lab Interpretation Abnormal (test code = 36335-7) [facility]. METABOLIC PANEL ([id number])2022-05-27 01:04:32 Test Item Value Reference Range Interpretation Comments NA (test code = 135 mmol/L 135-145 9203280261) K (test code = 2.3 mmol/L 3.5-5 LL 9804233207) CL (test code = 102 mmol/L 98-108 1668771673) CO2 TOTAL (test code = 21 mmol/L 23-31 L 7262664424) AGAP (test code = 2-16 9870034742) BUN (test code = 5 mg/dL 7-23 L 8711052925) GLUCOSE (test code = 142 mg/dL 70-110 H 6975411831) CREATININE (test code = 0.68 mg/dL 0.6-1.25 0641349604) TOTAL BILI (test code = 0.6 mg/dL 0.1-1.2 6474322218) CALCIUM (test code = 7.9 mg/dL 8.6-10.6 L 2530256520) T PROTEIN (test code = 7.3 g/dL 6.3-8.2 1368809003) ALBUMIN (test code = 3.2 g/dL 3.5-5 L 5066587243) ALK PHOS (test code = 100 U/L 34-122 8361059294) ALTv (test code = 13 U/L 5-50 1742-6) AST(SGOT) (test code = 17 U/L 13-40 0222560827) eGFR (test code = mL/min/1.73m2 2360520932) LU (test code = LU) Association of [...] tests). Lab Interpretation Abnormal (test code = 76901-9) [facility] WITH [id number] 00:45:16 Test Item Value Reference Range Interpretation Comments WBC (test code = See_Comment [Automated 4590-2) message] The sy stem which generated this result transmitted reference range : 4.20 - 10.70 10*3/?L. The reference range was not used to interpret this result as normal/abnormal . RBC (test code = See_Comment L [Automated 479-8) message] The sy stem which generated this [...] RDW-SD (test code = 49.6 fL 38.5-51.6 13775-5) RDW-CV (test code = 15.1 % 12.1-15.4 788-0) PLT (test code = See_Comment [Automated 777-3) message] The sy stem which generated this result transmitted reference range : 150 - 328 10*3/ ?L. The reference r alisson was not used to interpret this result as normal/abnormal . MPV (test code = 11.2 fL 9.8-13 46099-9) NRBC/100 WBC (test See_Comment [Automat ed code = 4561879397) message] The system which generated this result transmitted reference range : 0.0 - 10.0 /100 WBCs. The refer ence range was not u sed to interpret th is result as normal/abnormal . NRBC x10^3 (test code See_Comment [Auto mated = 0081033939) message] The s ystem which generated this result transmitted reference range : 10*3/?L. The reference range was not used to interpret this result as normal/abnormal . GRAN MAT (NEUT) % 72.3 % (test code = 770-8) IMM GRAN % (test code 0.20 % = 5244713362) LYMPH % (test code = 19.9 % 736-9) MONO % (test code = 6.3 % 5905-5) EOS % (test code = 1.0 % 713-8) BASO % (test code = 0.3 % 706-2) GRAN MAT x10^3(ANC) 6.43 10*3/uL 1.99-6.95 (test code = 1141111575) IMM GRAN x10^3 (test 0-0.06 code = 4827515941) LYMPH x10^3 (test code 1.77 10*3/uL 1.09-3.23 = 731-0) MONO x10^3 (test code 0.56 10*3/uL 0.36-1.02 = 742-7) EOS x10^3 (test code = 0.09 10*3/uL 0.06-0.53 711-2) BASO x10^3 (test code 0.03 10*3/uL 0.01-0.09 = 704-7) Lab Interpretation Abnormal (test code = 22331-2) [facility] METABOLIC PANEL (NA, K, CL, CO2, GLUCOSE, BUN, CREATININE, CA)2022-04-29 10:41:04 Test Item Value Reference Range Interpretation Comments NA (test code = 141 mmol/L 135-145 3394203198) K (test code = 4.1 mmol/L 3.5-5 0185382560) CL (test code = 113 mmol/L 98-108 H 6103330761) CO2 TOTAL (test code = 26 mmol/L 23-31 9288545709) AGAP (test code = 2-16 9269103309) BUN (test code = 2 mg/dL 7-23 L 4288891069) GLUCOSE (test code = 77 mg/dL 70-110 1364929284) CREATININE (test code = 0.43 mg/dL 0.6-1.25 L 5027363580) CALCIUM (test code = 7.5 mg/dL 8.6-10.6 L 5332407408) eGFR (test code = mL/min/1.73m2 6006201327) LU (test code = LU) Association of [...] tests). Lab Interpretation Abnormal (test code = 32174-4) [facility] METABOLIC PANEL (NA, K, CL, CO2, GLUCOSE, BUN, CREATININE, CA)2022-04-29 10:41:04 Test Item Value Reference Range Interpretation Comments NA (test code = 141 mmol/L 135-145 7975653867) K (test code = 4.1 mmol/L 3.5-5.0 5816382158) CL (test code = 113 mmol/L 98-108 H 0929005852) CO2 TOTAL (test code = 26 mmol/L 23-31 2028630526) AGAP (test code = 2-16 6785552023) BUN (test code = 2 mg/dL 7-23 L 3668041949) GLUCOSE (test code = 77 mg/dL 70-110 9981283778) CREATININE (test code = 0.43 mg/dL 0.60-1.25 L 6080110277) CALCIUM (test code = 7.5 mg/dL 8.6-10.6 L 9228764058) eGFR (test code = mL/min/1.73m2 2189472261) LU (test code = LU) Association of [...] tests). Lab Interpretation Abnormal (test code = 84965-2) [facility]2022-07-06 19:02:20 Test Item Value Reference Range Interpretation Comments MAGNESIUM (test code = 7166617098) 1.7 mg/dL 1.7-2.4 Lab Interpretation (test code = Normal 53857-3) [facility]2022-07-06 19:02:20 Test Item Value Reference Range Interpretation Comments MAGNESIUM (test code = 0044691322) 1.7 mg/dL 1.7-2.4 Lab Interpretation (test code = Normal 50580-7) [facility] (NA, K, CL, CO2, GLUCOSE, BUN, CREATININE, CA)2022-04-28 17:52:13 Test Item Value Reference Range Interpretation Comments NA (test code = 142 mmol/L 135-145 5849318417) K (test code = 2.6 mmol/L 3.5-5 LL 6716520565) CL (test code = 109 mmol/L 98-108 H 1872794195) CO2 TOTAL (test code = 26 mmol/L 23-31 2090686463) AGAP (test code = 2-16 4689111586) BUN (test code = 3 mg/dL 7-23 L 7778521693) GLUCOSE (test code = 95 mg/dL 70-110 1356168982) CREATININE (test code = 0.57 mg/dL 0.6-1.25 L 2933102749) CALCIUM (test code = 7.6 mg/dL 8.6-10.6 L 9726051163) eGFR (test code = mL/min/1.73m2 0504384232) LU (test code = LU) Association of [...] tests). Lab Interpretation Abnormal (test code = 68637-8) [facility] METABOLIC PANEL (NA, K, CL, CO2, GLUCOSE, BUN, CREATININE, CA)2022-04-28 17:52:13 Test Item Value Reference Range Interpretation Comments NA (test code = 142 mmol/L 135-145 5522160107) K (test code = 2.6 mmol/L 3.5-5.0 LL 0630944105) CL (test code = 109 mmol/L 98-108 H 0760005994) CO2 TOTAL (test code = 26 mmol/L 23-31 3935767499) AGAP (test code = 2-16 3599035963) BUN (test code = 3 mg/dL 7-23 L 5128214870) GLUCOSE (test code = 95 mg/dL 70-110 0543263016) CREATININE (test code = 0.57 mg/dL 0.60-1.25 L 1244743546) CALCIUM (test code = 7.6 mg/dL 8.6-10.6 L 2322704418) eGFR (test code = mL/min/1.73m2 0903791790) LU (test code = LU) Association of [...] tests). Lab Interpretation Abnormal (test code = 60789-2) [facility] METABOLIC PANEL (NA, K, CL, CO2, GLUCOSE, BUN, CREATININE, CA)2022-04-28 17:52:13 Test Item Value Reference Range Interpretation Comments NA (test code = 142 mmol/L 135-145 7984631017) K (test code = 2.6 mmol/L 3.5-5.0 LL 8152875639) CL (test code = 109 mmol/L 98-108 H 9717745306) CO2 TOTAL (test code = 26 mmol/L 23-31 8516947881) AGAP (test code = 2-16 3417615860) BUN (test code = 3 mg/dL 7-23 L 0137092971) GLUCOSE (test code = 95 mg/dL 70-110 6226738473) CREATININE (test code = 0.57 mg/dL 0.60-1.25 L 7123404227) CALCIUM (test code = 7.6 mg/dL 8.6-10.6 L 0828143859) eGFR (test code = mL/min/1.73m2 3927146233) LU (test code = LU) Association of [...] tests). Lab Interpretation Abnormal (test code = 03594-4) [facility] WITHOUT [id number] 17:16:02 Test Item Value Reference Range Interpretation Comments WBC (test code = 6690-2) See_Comment [A utomated message] The system [employer] generated this result transmit annette reference range : 4.20 - 10.70 10*3/?L. The reference range was not used to interpret this result as normal/abnormal . RBC (test code = 789-8) See_Comment L [Au tomated message] The system [employer] generated this result transmit annette reference range [...] 777-3) See_Comment [Au tomated message] The system [facility] [employer] generated this result transmit annette reference range : 150 - 328 10*3/?L. The reference range was not used to interpret this result as normal/abnormal . MPV (test code = 10.7 fL 9.8-13 99454-7) RDW-CV (test code = 14.9 % 12.1-15.4 788-0) RDW-SD (test code = 48.9 fL 38.5-51.6 01327-3) NRBC x10^3 (test code = See_Comment [Au tomated message] 7096059805) The system [employer] generated this result transmit annette reference range : 10*3/?L. The reference range was not used to interpret this result as normal/abnormal . NRBC/100 WBC (test code See_Comment [Au tomated message] = 7615261769) The system [facility] generated this result transmit annette reference range : 0.0 - 10.0 /100 WBC s. The reference r alisson was not used to interpret this result as normal/abnormal . IPF % (test code = 8728067069) Lab Interpretation (test Abnormal code = 84764-1) [facility] WITHOUT [id number] 17:16:02 Test Item Value Reference Range Interpretation Comments WBC (test code = 6690-2) See_Comment [A utomated message] The system [employer] generated this result transmit annette reference range : 4.20 - 10.70 10*3/?L. The reference range was not used to interpret this result as normal/abnormal . RBC (test code = 789-8) See_Comment L [Au tomated message] The system [employer] generated this result transmit annette reference range [...] 777-3) See_Comment [Au tomated message] The system [employer] generated this result transmit annette reference range : 150 - 328 10*3/?L. The reference range was not used to interpret this result as normal/abnormal . MPV (test code = 10.7 fL 9.8-13.0 49532-7) RDW-CV (test code = 14.9 % 12.1-15.4 788-0) RDW-SD (test code = 48.9 fL 38.5-51.6 73148-3) NRBC x10^3 (test code = <0.01 See_Comment [Au tomated message] 0819261842) The system [employer] generated this result transmit annette reference range : 10*3/?L. The reference range was not used to interpret this result as normal/abnormal . NRBC/100 WBC (test code See_Comment [Au tomated message] = 1235063062) The system [facility] generated this result transmit annette reference range : 0.0 - 10.0 /100 WBC s. The reference r alisson was not used to interpret this result as normal/abnormal . IPF % (test code = 6660840747) Lab Interpretation (test Abnormal code = 48470-9) [facility] WITHOUT [id number] 17:16:02 Test Item Value Reference Range Interpretation Comments WBC (test code = 6690-2) See_Comment [A utomated message] The system [employer] generated this result transmit annette reference range : 4.20 - 10.70 10*3/?L. The reference range was not used to interpret this result as normal/abnormal . RBC (test code = 789-8) See_Comment L [Au tomated message] The system [employer] generated this result transmit annette reference range [...] 777-3) See_Comment [Au tomated message] The system [employer] generated this result transmit annette reference range : 150 - 328 10*3/?L. The reference range was not used to interpret this result as normal/abnormal . MPV (test code = 10.7 fL 9.8-13.0 96818-1) RDW-CV (test code = 14.9 % 12.1-15.4 788-0) RDW-SD (test code = 48.9 fL 38.5-51.6 30345-2) NRBC x10^3 (test code = <0.01 See_Comment [Au tomated message] 1332134980) The system [employer] generated this result transmit annette reference range : 10*3/?L. The reference range was not used to interpret this result as normal/abnormal . NRBC/100 WBC (test code See_Comment [Au tomated message] = 3706494413) The system [employer] generated this result transmit annette reference range : 0.0 - 10.0 /100 WBC s. The reference r alisson was not used to interpret this result as normal/abnormal . IPF % (test code = 2559175592) Lab Interpretation (test Abnormal code = 97099-9) [facility]OT[facility] [id number] 22:31:26 Test Item Value Reference Range Interpretation Comments K (test code = 5148987942) 3.3 mmol/L 3.5-5 L Lab Interpretation (test code = Abnormal 27397-9) [facility] (NA, K, CL, CO2, GLUCOSE, BUN, CREATININE, CA)2022-04-27 22:31:26 Test Item Value Reference Range Interpretation Comments NA (test code = 144 mmol/L 135-145 6742938751) K (test code = 3.3 mmol/L 3.5-5 L 0672761650) CL (test code = 112 mmol/L 98-108 H 7584222445) CO2 TOTAL (test code = 27 mmol/L 23-31 4795537499) AGAP (test code = 2-16 1995008581) BUN (test code = 5 mg/dL 7-23 L 3063265696) GLUCOSE (test code = 118 mg/dL 70-110 H 1020650151) CREATININE (test code = 0.63 mg/dL 0.6-1.25 3379961433) CALCIUM (test code = 7.6 mg/dL 8.6-10.6 L 8236369617) eGFR (test code = mL/min/1.73m2 7157290276) LU (test code = LU) Association of [...] tests). Lab Interpretation Abnormal (test code = 32819-8) [facility] [id number] 22:31:26 Test Item Value Reference Range Interpretation Comments K (test code = 9543653644) 3.3 mmol/L 3.5-5.0 L Lab Interpretation (test code = Abnormal 72550-7) [facility] [id number] 22:31:26 Test Item Value Reference Range Interpretation Comments K (test code = 7173800487) 3.3 mmol/L 3.5-5.0 L Lab Interpretation (test code = Abnormal 33636-7) [facility] METABOLIC PANEL (NA, K, CL, CO2, GLUCOSE, BUN, CREATININE, CA)2022-04-27 22:31:26 Test Item Value Reference Range Interpretation Comments NA (test code = 144 mmol/L 135-145 2011005366) K (test code = 3.3 mmol/L 3.5-5.0 L 4172024406) CL (test code = 112 mmol/L 98-108 H 8955150551) CO2 TOTAL (test code = 27 mmol/L 23-31 3430877753) AGAP (test code = 2-16 7890275641) BUN (test code = 5 mg/dL 7-23 L 3584607676) GLUCOSE (test code = 118 mg/dL 70-110 H 0088952909) CREATININE (test code = 0.63 mg/dL 0.60-1.25 4980209989) CALCIUM (test code = 7.6 mg/dL 8.6-10.6 L 5104239761) eGFR (test code = mL/min/1.73m2 9621932704) LU (test code = LU) Association of [...] tests). Lab Interpretation Abnormal (test code = 46407-4) [facility]2022-07-05 21:22:49 Test Item Value Reference Range Interpretation Comments MAGNESIUM (test code = 9276446577) 2.1 mg/dL 1.7-2.4 Lab Interpretation (test code = Normal 78490-3) [facility]2022-07-05 21:22:49 Test Item Value Reference Range Interpretation Comments MAGNESIUM (test code = 2904481822) 2.1 mg/dL 1.7-2.4 Lab Interpretation (test code = Normal 43393-8) [facility] 21:22:49 Test Item Value Reference Range Interpretation Comments MAGNESIUM (test code = 4414258085) 2.1 mg/dL 1.7-2.4 Lab Interpretation (test code = Normal 46159-6) [facility] (NA, K, CL, CO2, GLUCOSE, BUN, CREATININE, CA)2022-04-27 15:50:29 Test Item Value Reference Range Interpretation Comments NA (test code = 143 mmol/L 135-145 4213951080) K (test code = 2.4 mmol/L 3.5-5 LL 6562619740) CL (test code = 110 mmol/L 98-108 H 7781675251) CO2 TOTAL (test code = 28 mmol/L 23-31 7568949381) AGAP (test code = 2-16 5207059446) BUN (test code = 4 mg/dL 7-23 L 9986955443) GLUCOSE (test code = 56 mg/dL 70-110 L 5052906572) CREATININE (test code = 0.65 mg/dL 0.6-1.25 5265854810) CALCIUM (test code = 7.7 mg/dL 8.6-10.6 L 0854061582) eGFR (test code = mL/min/1.73m2 3102414005) LU (test code = LU) Association of [...] tests). Lab Interpretation Abnormal (test code = 50795-9) [facility] METABOLIC PANEL (NA, K, CL, CO2, GLUCOSE, BUN, CREATININE, CA)2022-04-27 15:50:29 Test Item Value Reference Range Interpretation Comments NA (test code = 143 mmol/L 135-145 8254914233) K (test code = 2.4 mmol/L 3.5-5.0 LL 9087456921) CL (test code = 110 mmol/L 98-108 H 6976581807) CO2 TOTAL (test code = 28 mmol/L 23-31 0458780354) AGAP (test code = 2-16 7960719941) BUN (test code = 4 mg/dL 7-23 L 7731439341) GLUCOSE (test code = 56 mg/dL 70-110 L 8324873448) CREATININE (test code = 0.65 mg/dL 0.60-1.25 2602080560) CALCIUM (test code = 7.7 mg/dL 8.6-10.6 L 9370983959) eGFR (test code = mL/min/1.73m2 5873208695) LU (test code = LU) Association of [...] tests). Lab Interpretation Abnormal (test code = 45003-1) [facility] Alliance[facility] [id number] 23:23:37 Test Item Value Reference Interpretation Comments Range TROPONIN I (test 0.007 ng/mL See_Comment [Automated code = 5816496953) message] The system which generated this result [...] biotin. Lab Interpretation Normal (test code = 17680-8) [facility]. METABOLIC PANEL ([id number])2022-04-26 23:23:37 Test Item Value Reference Range Interpretation Comments NA (test code = 143 mmol/L 135-145 0125503540) K (test code = 2.3 mmol/L 3.5-5 LL 6656662120) CL (test code = 107 mmol/L 98-108 9141978382) CO2 TOTAL (test code = 27 mmol/L 23-31 7717802431) AGAP (test code = 2-16 6163114374) BUN (test code = 4 mg/dL 7-23 L 1930793251) GLUCOSE (test code = 86 mg/dL 70-110 6892152579) CREATININE (test code = 0.73 mg/dL 0.6-1.25 3964398971) TOTAL BILI (test code = 0.7 mg/dL 0.1-1.9 5050704147) CALCIUM (test code = 7.6 mg/dL 8.6-10.6 L 8570143737) T PROTEIN (test code = 6.5 g/dL 6.3-8.2 7806384970) ALBUMIN (test code = 2.7 g/dL 3.5-5 L 1532637664) ALK PHOS (test code = 96 U/L 34-122 1730312064) ALTv (test code = 13 U/L 5-50 1742-6) AST(SGOT) (test code = 22 U/L 13-40 1411835575) eGFR (test code = mL/min/1.73m2 5741394172) LU (test code = LU) Association of [...] tests). Lab Interpretation Abnormal (test code = 98108-3) [facility] AllianceTR[facility] [id number] 23:23:37 Test Item Value Reference Interpretation Comments Range TROPONIN I (test 0.007 ng/mL See_Comment [Automated code = 2925456532) message] The system which generated this result [...] biotin. Lab Interpretation Normal (test code = 55381-1) [facility] METABOLIC PAN[facility] (02147)2022-04-26 23:23:37 Test Item Value Reference Range Interpretation Comments NA (test code = 143 mmol/L 135-145 7688211668) K (test code = 2.3 mmol/L 3.5-5.0 LL 7705413265) CL (test code = 107 mmol/L 98-108 3807102951) CO2 TOTAL (test code = 27 mmol/L 23-31 6953828691) AGAP (test code = 2-16 2855761613) BUN (test code = 4 mg/dL 7-23 L 2506156142) GLUCOSE (test code = 86 mg/dL 70-110 2342069373) CREATININE (test code = 0.73 mg/dL 0.60-1.25 8255750002) TOTAL BILI (test code = 0.7 mg/dL 0.1-1.9 4604047800) CALCIUM (test code = 7.6 mg/dL 8.6-10.6 L 8478489740) T PROTEIN (test code = 6.5 g/dL 6.3-8.2 8378689488) ALBUMIN (test code = 2.7 g/dL 3.5-5.0 L 5655738469) ALK PHOS (test code = 96 U/L 34-122 0616044242) ALTv (test code = 13 U/L 5-50 1742-6) AST(SGOT) (test code = 22 U/L 13-40 1127303513) eGFR (test code = mL/min/1.73m2 7376370361) LU (test code = LU) Association of [...] tests). Lab Interpretation Abnormal (test code = 91935-5) [id number] 23:23:37 Test Item Value Reference Interpretation Comments Range TROPONIN I (test 0.007 ng/mL See_Comment [Automated code = 9053749856) message] The system which generated this result [...] biotin. Lab Interpretation Normal (test code = 91672-0) [facility]OLIC [facility] ([id number])2022-04-26 23:23:37 Test Item Value Reference Range Interpretation Comments NA (test code = 143 mmol/L 135-145 7680703949) K (test code = 2.3 mmol/L 3.5-5.0 LL 3739546777) CL (test code = 107 mmol/L 98-108 4442268221) CO2 TOTAL (test code = 27 mmol/L 23-31 1826571734) AGAP (test code = 2-16 7683442402) BUN (test code = 4 mg/dL 7-23 L 4335350556) GLUCOSE (test code = 86 mg/dL 70-110 0595702147) CREATININE (test code = 0.73 mg/dL 0.60-1.25 6432644645) TOTAL BILI (test code = 0.7 mg/dL 0.1-1.0 9865184679) CALCIUM (test code = 7.6 mg/dL 8.6-10.6 L 1544327547) T PROTEIN (test code = 6.5 g/dL 6.3-8.2 9249214030) ALBUMIN (test code = 2.7 g/dL 3.5-5.0 L 7853050803) ALK PHOS (test code = 96 U/L 34-122 8244639843) ALTv (test code = 13 U/L 5-50 1742-6) AST(SGOT) (test code = 22 U/L 13-40 4393686601) eGFR (test code = mL/min/1.73m2 1284929031) LU (test code = LU) Association of [...] tests). Lab Interpretation Abnormal (test code = 41071-6) [facility] Alliance[facility]AL [id number] 23:20:37 Test Item Value Reference Range Interpretation Comments NT-proBNP (test code 393 pg/mL See_Comment H [Autom ated = 4978518567) message] The system which generated this result transmitted reference range : <=125. The reference range was not used to interpret this result as normal/abnormal . LU (test code = LU) Biotin has been reported to cause a negative bias, interpret results relative to patient's use of biotin. Lab Interpretation Abnormal (test code = 71956-6) [facility] [id number] 23:20:37 Test Item Value Reference Range Interpretation Comments NT-proBNP (test code 393 pg/mL See_Comment H [Autom ated = 5191895302) message] The system which generated this result transmitted reference range : <=125. The reference range was not used to interpret this result as normal/abnormal . LU (test code = LU) Biotin has been reported to cause a negative bias, interpret results relative to patient's use of biotin. Lab Interpretation Abnormal (test code = 99771-5) [facility] [id number] 23:20:37 Test Item Value Reference Range Interpretation Comments NT-proBNP (test code 393 pg/mL See_Comment H [Autom ated = 9725651604) message] The system which generated this result transmitted reference range : <=125. The reference range was not used to interpret this result as normal/abnormal . LU (test code = LU) Biotin has been reported to cause a negative bias, interpret results relative to patient's use of biotin. Lab Interpretation Abnormal (test code = 21072-7) [facility] AllianceLIPASE2022-07-[facility] 23:11:39 Test Item Value Reference Range Interpretation Comments LIPASE (test code = 7751182901) 78 U/L 0-220 Lab Interpretation (test code = Normal 42864-9) [facility] 23:11:39 Test Item Value Reference Range Interpretation Comments LIPASE (test code = 0274833867) 78 U/L 0-220 Lab Interpretation (test code = Normal 81608-2) [facility] 23:11:39 Test Item Value Reference Range Interpretation Comments LIPASE (test code = 1313484457) 78 U/L 0-220 Lab Interpretation (test code = Normal 10199-6) [facility] WITH [id number] 22:55:18 Test Item Value Reference Range Interpretation [...] RDW-SD (test code = 45.2 fL 38.5-51.6 48882-5) RDW-CV (test code = 14.3 % 12.1-15.4 788-0) PLT (test code = See_Comment [Automated 777-3) message] The sy stem which generated this result transmitted reference range : 150 - 328 10*3/ ?L. The reference r alisson was not used to interpret this result as normal/abnormal . MPV (test code = 10.5 fL 9.8-13 94200-5) NRBC/100 WBC (test See_Comment [Automat ed code = 4444616480) message] The system which generated this result transmitted reference range : 0.0 - 10.0 /100 WBCs. The refer ence range was not u sed to interpret th is result as normal/abnormal . NRBC x10^3 (test code See_Comment [Auto mated = 6708283478) message] The s ystem which generated this result transmitted reference range : 10*3/?L. The reference range was not used to interpret this result as normal/abnormal . GRAN MAT (NEUT) % 73.6 % (test code = 770-8) IMM GRAN % (test code 0.30 % = 0831716605) LYMPH % (test code = 20.6 % 736-9) MONO % (test code = 4.9 % 5905-5) EOS % (test code = 0.3 % 713-8) BASO % (test code = 0.3 % 706-2) GRAN MAT x10^3(ANC) 6.49 10*3/uL 1.99-6.95 (test code = 9073375857) IMM GRAN x10^3 (test 0.03 10*3/uL 0-0.06 code = 6967504386) LYMPH x10^3 (test code 1.82 10*3/uL 1.09-3.23 = 731-0) MONO x10^3 (test code 0.43 10*3/uL 0.36-1.02 = 742-7) EOS x10^3 (test code = 0.03 10*3/uL 0.06-0.53 L 711-2) BASO x10^3 (test code 0.03 10*3/uL 0.01-0.09 = 704-7) Lab Interpretation Abnormal (test code = 12750-7) [facility] WITH [id number] 22:55:18 Test Item Value Reference Range Interpretation [...] RDW-SD (test code = 45.2 fL 38.5-51.6 96107-3) RDW-CV (test code = 14.3 % 12.1-15.4 788-0) PLT (test code = See_Comment [Automated 777-3) message] The sy stem which generated this result transmitted reference range : 150 - 328 10*3/ ?L. The reference r alisson was not used to interpret this result as normal/abnormal . MPV (test code = 10.5 fL 9.8-13.0 87652-9) NRBC/100 WBC (test See_Comment [Automat ed code = 5005672084) message] The system which generated this result transmitted reference range : 0.0 - 10.0 /100 WBCs. The refer ence range was not u sed to interpret th is result as normal/abnormal . NRBC x10^3 (test code <0.01 See_Comment [Auto mated = 1435792681) message] The s ystem which generated this result transmitted reference range : 10*3/?L. The reference range was not used to interpret this result as normal/abnormal . GRAN MAT (NEUT) % 73.6 % (test code = 770-8) IMM GRAN % (test code 0.30 % = 9097320013) LYMPH % (test code = 20.6 % 736-9) MONO % (test code = 4.9 % 5905-5) EOS % (test code = 0.3 % 713-8) BASO % (test code = 0.3 % 706-2) GRAN MAT x10^3(ANC) 6.49 10*3/uL 1.99-6.95 (test code = 8869824589) IMM GRAN x10^3 (test 0.03 10*3/uL 0.00-0.06 code = 6862791508) LYMPH x10^3 (test code 1.82 10*3/uL 1.09-3.23 = 731-0) MONO x10^3 (test code 0.43 10*3/uL 0.36-1.02 = 742-7) EOS x10^3 (test code = 0.03 10*3/uL 0.06-0.53 L 711-2) BASO x10^3 (test code 0.03 10*3/uL 0.01-0.09 = 704-7) Lab Interpretation Abnormal (test code = 99006-3) [facility] WITH [id number] 22:55:18 Test Item Value Reference Range Interpretation [...] RDW-SD (test code = 45.2 fL 38.5-51.6 00579-1) RDW-CV (test code = 14.3 % 12.1-15.4 788-0) PLT (test code = See_Comment [Automated 777-3) message] The sy stem which generated this result transmitted reference range : 150 - 328 10*3/ ?L. The reference r alisson was not used to interpret this result as normal/abnormal . MPV (test code = 10.5 fL 9.8-13.0 38458-3) NRBC/100 WBC (test See_Comment [Automat ed code = 0731559586) message] The system which generated this result transmitted reference range : 0.0 - 10.0 /100 WBCs. The refer ence range was not u sed to interpret th is result as normal/abnormal . NRBC x10^3 (test code <0.01 See_Comment [Auto mated = 9057823310) message] The s ystem which generated this result transmitted reference range : 10*3/?L. The reference range was not used to interpret this result as normal/abnormal . GRAN MAT (NEUT) % 73.6 % (test code = 770-8) IMM GRAN % (test code 0.30 % = 2760589907) LYMPH % (test code = 20.6 % 736-9) MONO % (test code = 4.9 % 5905-5) EOS % (test code = 0.3 % 713-8) BASO % (test code = 0.3 % 706-2) GRAN MAT x10^3(ANC) 6.49 10*3/uL 1.99-6.95 (test code = 2912301853) IMM GRAN x10^3 (test 0.03 10*3/uL 0.00-0.06 code = 7493292440) LYMPH x10^3 (test code 1.82 10*3/uL 1.09-3.23 = 731-0) MONO x10^3 (test code 0.43 10*3/uL 0.36-1.02 = 742-7) EOS x10^3 (test code = 0.03 10*3/uL 0.06-0.53 L 711-2) BASO x10^3 (test code 0.03 10*3/uL 0.01-0.09 = 704-7) Lab Interpretation Abnormal (test code = 92330-4) [facility] [id number] 16:42:42 Test Item Value Reference Range Interpretation Comments Case Report (test code Surgical Pathology ? ? = [id number]) ?Case: [id number] ? Authorizing Provider: ?Negrito Shaver MD ? Collected: ? 03/12/2022 1050 ?Ordering Location: ? ? [facility] ? ? ?Received: ?03/12/2022 1656 ? [facility] ?Pathologist: ? He, Carolin, MD ? Specimens: ? A) - APPENDIX ? B) - HERNIA SAC, RIGHT INGUINAL, RIGHT INGUINAL HERNIA SAC ? Final Diagnosis (test z2ogmKNvHKNtx4poUHTjbX code = [id number]) FuZzEwMzNcZnRuYmpcdWMx IHtccnRmMVxhbnNpXGRlZm igzuraVSXpCVR2ukJxVEEz URF8GLP5IeLaGTMrEez1FQ TcCV8asCxigEr0eHptJEFw ffN0zCIrLSbpf2oyDCS5h6 fxsdpgPKQgDAdbUd9adQCo mXuxLgTlZROkCAl1oU95SL UbiV9ltGExDXaxxdOnSlH1 TElzSLRcCqQ9RMDrzTIuKR B8zDxdUNUlynrsBwI1CFgl SDIbicfiICl8VIxhBRGicW Y7EJRhxDLsG3HvOPKtTM5p qpm8YNS5NKzjDPVlHtW4CE MrfUMdVQKijNlzEZudh260 OIL2MzAcUENcklOkeDbukR 9kDgZrZPaePTOiDV1kWFWD OI9SMSvxGOMTUBBYIPZPLI 9NWTpccGFyICAgICAtIEJF TklHTiBBUFBFTkRJWCBUSV SPTIUlG7wXVJUKHTPKMYls H91GG2XZDHpLHsEGIdTLMX UEUFLEBM7QFSNGUGwsUDSU DS1NQBJYNJLDCFTyaWIyOM KxxeSLLjBjA9ssIbHqhKNa SEVSTklBIFNBQywgRVhDSV LDM011XNTusga+WX2rtge+ OC9gCNUFHbjAGnXOYORXRR qJOBpVQCWAWS2TACTDWVIB Q8ORBITFE9XnTYfZS5RHXH nEOHxhTeTEF1KBTFSiZ59K I6NMKKjWSodmKHTbtzDkLO DoFOLxH75JR4gHAOONCARS RLUHMMaMBh9TDMSIQVOonP PhDOLeS1RnKYPpGLUlzosd czIyIExpbmRzYXkgQmlnaG BpEPXSUcFiXE8sIF5vAERf ANS8AqRcLOIKPXLrzdyotw OcVQRpsj64GDI2LhYoz4P8 VRMfGoWeUFXbTG5hkMxdRT TgWP6nIOWbU3yluW9ciuc1 PkOsHHWmGiU2AWUnjjN8Io l2WKWkGQksx6qac2ZoZ0Zp vOHnhUj2l9wvXFJlAfK8nV WiYRwmQ7uplxFifQMfZTFo TZx7qQteCiKgHKRkw4dwmo BcZmNoYXJzZXQwIENhbGli psy0aD00YPSyzJ7yqGGzRE gbahPnXtA7MLxfZDNtTgH4 PJRroPPwEBCvH5ofUVBwJK pnYMVsMYjfcACmOLO0xQqx p5N8zCUdoSWbiBfbPhCkPi VdHZOAt9CtKFl9xPhhP3Cu XSBlVqT4rJKrQLZgMVacYR LtXRHrqkM6qB29ZIjtgbC0 kUBrh9Fon90xm642eT0htE FjFTG4VFFjJTZuaZNrLLIk YZG0FFQhuCKmN4azIDYvOR 7eyxrnCIssCLbeBIOagZP9 QQHrbZEfY1RyMQMaTZoyIE Dyzhy5GgEeVb9hyMFfdMma XDmvq6rlt0mjcVUqElz7MD IjXrBvCvcwHKhwg7Xss8nc QJYbuw8sBNY5rKAnsWnba8 Y5gOPbNAPthMXafiRiXHKo NqD7JCsjTV8gse56HOKrRJ D2wj9scDWksPjrwyJozYNy BMioU0IlPCCjc246BGTzA3 FbPOLbc8E0qcFnJjQtUUZw uHQ5cgN5JXAqGIl8qBVlaa D4iyVxcOWfP9yjnF1cFMTo NE4scnhfa1lwQTtxTLeeJQ PvgMG0kdK1UALjjXEmO9Qq fU9jBBBnWUiqPZPrjaa2El PsAb9yqMUotPemELxvMtce YWdlXHBnbmNvbnRccGduZG VjXHBsYWluXHBsYWluXGYw SISqXpLlyHlcqZvozK3cKy TqTfYmDMdnRP9wPJJhE4pg cTGxNUElFGTyR7qxCfPifB 9jaFxmMVxjZjJcZnMyMFxw YXIgSSBoYXZlIHBlcnNvbm GzpZqcmuI7zFB2UVDgOMxu HOMuKERiqFKxuj7uuOsaDH SzTC0rFMDonkKwWXfnwSxt WIcsRQL0TQQgsUDkmHDnuP FkZSBieSByZXNpZGVudHMs FRZbcIcvz3Osw8ZkrZP4tX 4mx5ygg8CgGVArgPE6GW36 cgW7jK5yHLZjXG9hDXZaWL 3lzZSuwXNjRLSjb82hmLor cyByZXBvcnQuXHBsYWluXG YyXGZzMjhcbGFuZzEwMzNc aGljaFxmMlxkYmNoXGYyXG soQ8stScSfAuWfDCccLAP0 bYudrcKpOGqrb4HaU2KpQy AwMFxhbnNpXGRlZmxhbmcx LPPlXDG1ocRvMKSaZKlhYT QhETdoYn9uhLQmhYupMbRs IRWko3fcrmZWPEjbVqJvQ4 17YLHhFZhmx0lxt6PpRVJr lMCdm2M8XCEQageaeXt2hA hmM88cn5D6KwnkV1xgEWBa SYNzE2IqIX3rYSZbDui0IP F0BYT4LCPlCSNsK6MaJE4u THXgdPXbCNg9n1ulxLzzOY UfMNZ6t6ydYWhhcfL7AG9c yc4cxAp0b6tlbhMpFCZmKC NqbFWFPTPfG5PfsXziHn4a rMa4sGirCvxxPJB9Sjj9GS 8yls51biw3nVvaJIGnskgf AnL0UHekSOWflhygRHl1XK zjQWGkgBN8ZTAeeRRsY0Px CANeAP9amat0UNT9QEaaOW PoPnU7HUResPBoMVDcnIek FWurp206QBK2AgZkLW8oE8 Zyo0S8fB9kuXVyALHydBWv PjMoYNTtvw5ozRSqUByxs9 BwX07vnHN0TVtir4fuDS1r FsW5okNrWTakt7hhrL2dEl O2ILqzEP6vig26XPVqBIR1 tb7ieADbjEerqpUonWRuFT nxB4VoOIAkc371VHQyU8Lc SLGuo6V2loEyLrPeVUItrM E9hwR6ZKXqXXw3iCUqtmH4 hzRvsGNcG3dpqB7cCRLhTZ 8cyuwaw8qiHBtoWIsmZVJw mHH6asB4ANAxbYJqL4EmmE 2zTMTyPPyvIYUpxqf8EpOt Jn5hbLVrxJveGYieEqeqNO dlXHBnbmNvbnRccGduZGVj XHBsYWluXHBsYWluXGYwXG WwHlVfmPIqDZsrr8NqinRt tAvnKWTpTOc8biFywrrwrR j6wRObwMpbTKPhfTulaP6b DkMfWkStOUavQW6uFIDhR9 tghHAdYQWyGYLpO8ezBzAm rY8ssRgqXDqrKdYrCnXaQW xsdHJjaFxwYXIgSSBoYXZl FSWxbsQxyjQimJiwprV9lH O0HWZiBRwvHIIeIUFfgJYy si0afYaiAIUwWB2iZZHkjb NtZVyfiHxzZHknPQF6BPMb bWVudHMgbWFkZSBieSByZX FiMMSyzJAtBSEbvOfmg9Rn y2OqlIM7jR5wl7kod6TxIE JrhJR7UL70gkC5dR7tRMIv TN4kGUTaGK4hrXHydNLpIU Skd89bqRwqksVnONMmjzVn XHBsYWluXGYxXGZzMjBcbG FuZzEwMzNcaGljaFxmMVxk AqWySAZfVClrR1udJbEiS6 YyXGZzMjBccGFyXHBhclxw FBDqy4UlDfYua7nuURmxe2 mrhCy3ACdzsPZavpsxMUvw ihQ8LPOkRXgzLWQlHJVbRD RcbGFuZzEwMzNcaGljaFxm KGewRwDbNISbBAhlI5rzHt AgQ1RjOSPaXCWesPWeA5dx PJF7sZ7fa9jbh0OcjGXmZn Ndz9ethlGeLFFgbRObxlBi pSRfKLBkj2CoDJNfRSSuYG ELMf3HZQFsiHObB9g4eKTO JT8ajWQwQIYxAYNaB4AdTc DUdjCxc6D2WXSukJYnOKIR MLInkVNtJ7l6xPpgVRpsFr p5JhAxdXxskH4yZwEuDwWr IXowCJ0zACWwE6nvySPlTT BqFZDcO0hsViSoiD1ycPfv MVxjZjJcZnMyMFxsdHJjaF mtIUA9cL== Clinical Information RIGHT INGUINAL HERNIA (test code = 8784936562) Gross Description (test b2jroDSyQFPesXEYOBEvZ2 code = 7329077000) xvopQkIPNtxTXqF7Vkdwba WNvjJJ7gOT2evVvfqBQpeG StIP5DGSMnYcGoAJTzcNOe oyWdRaNyRZEzqMCedEL1AY CrLX6lqavhCOevFWtqLOLo qwK0WRTjuLToN5MyXXPxCL 6fhxqpBDW5VQdhkY8gszER UabeKl6eqQScoVzvJaPfJp NoYXJzZXQwXGZuaWwgQXJp JKb2eL3JDtzfBXN3GGMMKh wpHZDhER8Oj0kfHCPkdHSo QKD0DQxlrHDsSBOpVSUsWB n1ZSIlDDbdsLIaSQ9auBeq OfyvzNlzk8HitIBhSCdkRK DzCBFuCHrsHOBdTM8CCtTh YBA9TQcfDKmsAJf8RMu5WM 9WUyAiICAxODgyOTUyMSIg ZDd5AFlzTM0LWMJ6BiC4DD J4DcwwXFCrPqpaILp8TTMu XFxmIEFyaWFsIFxcZnMgMT VzYWqynJZjET5xrOmbvKKh blxmczIwIFNQRUNJTUVOIE ZrkTStPY7TECFzYIslCOTd rNZVRLQ3YU4cRXBCWdnquR VnOBMckSdcEMfunN1aLD3N GDe7ogGqYPCpYwDxM5YgP9 fuVN7lWODefcNgVQSopSNr HYUawmHbh1IpAEzwzaDlXX JlbGVkIHdpdGggdGhlIHBh tXopgiKaxeZtTC5nZCXLFD ZtvI6tRTEuKbZfcDWhARl5 WvldBR8tFSOjgvDqk2XoIR 9mIGFuIGludGFjdCwgdmVy rHluw9YpKODhzKZgEKv7XL p4DxIpN79thW8syBGnX4Lk RDrmJR23HTFaRQQttXSmgq BpoWEdHKPbjbyou1w3cAAf qKGyW1zjQDOgVAWeABEgZW 6qiOvhSR6pHNZvW1Q3kASz lZpvWQZqGWGiY4Ogq57uaQ UaU2dbDjRMjHUua8Gik4Df ZShpDKLuan7clY9gYRWhZB KiieOaf90cehTpxFa5OWLw m850dNN4bBPhFTMceqdfb1 QlSBO5PNHoSHlpNoCLeBDj g3VgJ0cqFP2mtTYyz6KrsC EkmVass5WfjDmaqlPrXBMw SCRlmtUzsPJ0DS5jeWsgvz GmnWGpn3HaUtHhBOMeFS6s XLTtsEJtII6mywQtH5kjGb Skfd3eIMHrlsHylJ44JTEo NSBjbSBpbiBkaWFtZXRlci I7oVL8QOSrveLhnS2iBMIc B09ndH53zkLwvU26arIdh8 Rja18zcGY5NJ6aWwEck51y EpYjBLoxxMR6UCEvRBtrHP 4fMZXqlkPiflA7cI5pxuLb vfEvW2Tyl5NmfQPfBDLhiY pldWSlTdOTSQA5vB3uurO7 byBpbmNsdWRlIHRoZSBlbi XaCSLaPOBan5EvgOzmkeLs GDWuwQ8gAUhwg1AlHQCbuI UpLCByZXByZXNlbnRhdGl2 MLEvxx5jqp2lLAR9mE9gEB NmucWdPamsCAK1AGVgnPle GVUlXFFzaPFduCQ8NTZfcN 1fKXCgFMtzzEcteT3aVKRf U71ty2NMd0YlHGMjYGehy6 ygbGnch4JwgBTwDMluNLUg nXPvRUrvxA9cYmGxo6vhyV w7XSnpmiD8ZFQczy9PXpls XaqywWkxd3TbpOOjUBbrYL BdADHcTFtmPLCzSB3JGtRt NOF4IXwjNVypEBq9AOb6NS 1BTfIcBEQxOJmjDDa1SVGo FSn1OQniEJ1DHBX4VnQ9WY H1DICxMJEsWhbcTMv0IWLh XFxmIEFyaWFsIFxcZnMgMT BtVItcsDOtPO1dnKqfmcXx IFNQRUNJTUVOIEJccGFyIA 2HRQDcAZclTODjnKPUXAG5 VE4iXWQHBxctmRGtXOScvJ gtUAqeuI6uJE9BKRi5kgRr HKCmToJeK7DuX1fkJW4uTa BpcyByZWNlaXZlZCBpbiBm j6ZvGFinlwYyCFKrlYXhHL dpdGggdGhlIHBhdGllbnQn bcDqEC3iLTFICXMumJ6tGE TtZbVdvXpwsKBptlt9nB5n tGVsLVDplYAmy8FhXeanLU 5uNWJanyEdh8UdFE6kGGDn iLDbKXTbxpsze0DdP7ZpIS Ims35skCP7fNUcrPGxUjQq N70rmlNdBDWhLOA9UQJdGI R9HQYvLvKlqFnuj8fwS2bq gFGoi6JrhSByrSffr0FjsM lvbmVkIHRvIHJldmVhbCB0 FG5yrKagjbNmFB6hgyRit0 IpZQE0vMWbtOPuIVTjab8x LRVgrZNrr2YdwYV8tKNxTF NwN7Vzo34kVJRfNCCstJOs dXP1RCJkjK7gQaIyMRTgfn PBNbklJAPnOWfMYTQ4ELDn amVzdGthLCBQQSAoQVNDUC kNClxwbGFpblxlcGljTmVz fCIkCtWdnWrkhO21IEKecQ WaDVE0QL8xRXRnpeygPNYi PONnUJM9QDiudI03rCHuYR JmRKIwxPKaiS8CWWCwWAH5 AIrfoD73cPQvPC2VVXGqOI L9AHQugRRfDYP7JY0lcQ2H fQ== Disclaimer (test code = q3bnvADkTNPqq6pvPSSbzG 1754805891) FuZzEwMzNcZnRuYmpcdWMx EFntiyLdXVmzl1QsS6NeSi AwMFxhbnNpXGRlZmxhbmcx ZSQfPPI9rjBoGDLbBOobYH OuXAgiQj1yyZLfhHgaToOw UYLtc6nrrzFWFVufQkGqU8 07BKRbYEuor6otl1YtNMMx hBVdu3U8RIYGkaybhZh6zS qrI43gr2R2UilxB0hhGRAr WOPhR4JrRY2kRCWgMuk7DE D7ZTC6PKBzDJReJ7TiLE7n NQHszADhADn0f6jdsPxsTR QbBZA0b1hwDGseeiJvSD3b bk9bsTh7h2ftvhCeQDKmGZ KxxVMFXRUgB8LqpDyyQj8n iCf9wEpqQspcLQC4Gub2GM 4cpm22aie6xIfmEQRkshzj DfL1IFwdBOMkkyshFEg8QR lvLGCrcSF2UYAcuCHwO2Eh DRCdPP5dojf5WUQ0CBreHA IaZeM3EAYffKYtVKTglJzh LZugk360EMW2BsBdAV8hG3 Mza2V9tD2ufKFaBFGdaIRh BkFbNZCrax5afTVcFVuun6 MnZIV4qrG5jLKmtYSeBWRn TY67Cccae5HtQklny1UqW3 4twMZ5WQqnc4bvJU4tWsI0 amGqNDtvu2qclD0cKrC6ZZ mnNL1iTU9yAPQfhK9atekd XHBnYnJkcmhlYWRccGdicm AjFj8hcPcaACI5PXsbR9et sM8iKxU6WSilL1qbkT2oZP u0JXrxiRI9PZLujX5nYD3h nlqyd5glPEixBFipEZOqox J3afF3USDzkWZmE0DghT7e LSOaGN7bbhrjn3gcAXV0YV afTUJgDZN3BaCqRTCep0Hs nfe5EpZpk4EpvZOzSQnvD1 9aa831UBDplbIkL1rrgJWi kfhxwVYvjefmRWbjdxG9CI MpboPdq0EoJBEjMUL9YVmb KEsizYFsMPUzwXjkf7gkD6 RscGFyXHBsYWluXGYxXGZz MjBcbGFuZzEwMzNcaGljaF brYHizSwVpRIMpWFbhP3ig PiUsG3PtEMYqNiPpjUObV2 ggVGhpcyByZXBvcnQgbWF5 PGgfR3v2TEOyqoJjjGo4su RcRqBsFVZlAQW7ZDbnjLPb XOAgs7DsvqsnuPYqEd9zcQ AnPSTimL5fTYYnKSWhITgq BB2lwCs7MYYIjIZebVYuSr GBSOQmPR31blDyJUGCvckb h5P6SIvuQRFuq2NenIFuS7 itq9YsONJte76uMV9tr2L7 d8eyNZG2VF3xn7DuGBYanX QreBZmQEDam3Caoggil0Sr TNUglxQuh1JiCELtohLxlC UsKQAmusJzrt8gybTmKIIw RTQlL7SrmcjkdAeozpPdWW Xgpk1fumOeGIN0KSHGQXOb SQIfw4UudQ4gbQJHKUM1jW Suda4mjvOZzXHrSKSufa50 PNZiSZ4sR9iwKGYmVCVrmb YqiYCyk4HrAEHkiNJ5vYUs PR5HVoWFk99dPLJkVXHBww ZbNHGpxSujdDN7zeC5uJ9q IChGREEpLlx+IFRoZSBGRE XnZH9xsbIpj1UcodCbyVdp ACJbdSZou3SfuUNwo8FnlM mdj5IgiKUrxHCxCD3jDJMx clxwYXIgVVRNQiBMYWJvcm L4t9RuQEUgGNNkDUC0vJar apx2MMJrdU4eMAXuR8dhmt beHPbkBAUcf5DfwX6qfZKU zMJti7LktVBhwAXPnNSqAX 1wkfNwKTtWBDgNSTD0xzPz IUMcx6TwHXlmG0kzR23tbW hmuCc1aOW8ZNJ1iF8lIsm+ IFxwYXJccGFyIEFwcHJvcH DlEJGueLvqquVxN9FivvQf mE6jaFOivlGoUX6tMT1kH4 O4hMWgUKNzttRyz6pzVWim dmUgYmVlbiByZXZpZXdlZC Kwc4MfTQszIMY5LVvxebSs bmNsdWRpbmcgSCZFLCBTcG PxiNQvTHC1VIpizoKhthFh SB0wxG2onThqlR8aaEEoaN T2yeigTXVnPOEvnTpqQRPn YT9fwGKzSPCsupZZbNetwT IhmX9aE0LbMSLnSZMwup9y DYZntL1eHHibw6XkkgnqHA GiNRRrIRTkwzQmqx3lXKGc zJAJXQ5XIAdjqKDrh4Kbfn GeO7xEJMC4XXOcEaLsPnhm CTVzxXWwrTSaGUHjyc71PB SjgI6ojZxjSYXddP2xhN6n bXbhxK7mAuJsKwLvOCsxOO 4gSMVuZ5xrpHDqHHAdICPl J3mlObAufJ5vvCvkVKgsJk MqBoIzYCkfGJS7rY== Embedded Images (test code = 5058758493) [facility] AllianceType [facility] Screen - This is a pre-surgical type and screen. ONCE [id number] 17:52:02 Test Item Value Reference Range Interpretation Comments ABO & RH (test AB POSITIVE Performed at [facility] code = 20) [facility] Blood [facility] [facility] s [address]Ibsz Free: [phone] A No. [id number] IAT (test code = Negative Performed a t [facility] 1185) [facility] [facility] s [address]Dere Free: [phone] A No. [id number] [facility] AlliancePREALBUMIN2022-04-14 23:13:17 Test Item Value Reference Range Interpretation Comments PALB (test code = 90704-4) 20.2 mg/dL 18.0-45.0 Lab Interpretation (test code = Normal 34639-2) [facility] AllianceHEPATIC FUNCTION PANEL (36662) (ALB,T.PRO,BILI T,BU/BC,ALT,AST,ALK PHOS)2022-02-04 23:05:58 Test Item Value Reference Range Interpretation Comments TOTAL BILI (test code = 3508696302) 0.4 mg/dL 0.1-1.1 BILI UNCON (test code = 1999075561) 0.2 mg/dL 0.1-1.1 BILI CONJ (test code = 9704978415) 0.0 mg/dL 0.0-0.3 T PROTEIN (test code = 2739097871) 7.7 g/dL 6.3-8.2 ALBUMIN (test code = 9547905153) 3.4 g/dL 3.5-5.0 L ALK PHOS (test code = 4688676268) 65 U/L 34-122 ALTv (test code = 1742-6) 11 U/L 5-50 AST(SGOT) (test code = 5793495106) 23 U/L 13-40 Lab Interpretation (test code = Abnormal 46388-5) [facility] AllianceAC[facility]PATITIS [id number] 03:38:00 Test Item Value Reference Range Interpretation Comments AB HEPATITIS A IGM NEGATIVE (test code = HAVMAB) AG HEPATITIS B NEGATIVE SCREEN NEGATIVE SURFACE (test code = HBSAG) AB HEPATITIS B CORE NEGATIVE IGM (test code = HBCMAB) AB HEPATITIS C (test <0.1 RATIO <0.8 S/C RAT ION 0.0 - code = HCVAB) 0.9 NEGATIVE <0.8INDETERMINA TE 0.8 - 0.9POSITI VE >0.9 [id number] 16:06:00 Test Item Value Reference Range Interpretation Comments SURG (test code = SURG) RUN DATE: 10/07/20 [facility] PAGE 1 RUN TIME: 1607 Specimen Inquiry RUN USER: INTERFACE PATIENT: FIONA SANCHES JR LOC: WINTER U #: [id number] AGE/SX: 35/M ROOM: WINTER RE10/06/20REG DR: Sreekanth Garcia MD : 84 BED: 3 DIS: STATUS: ADM Arcadio TLOC: SPEC #: [id number]:[id number] RECD: 10/06/20 STATUS: ELZA REQ #: [id number] MIRIAM: 10/06/[address] [facility] DR: Sreekanth Garcia MD ENTERED: 10/06/20 SP TYPE: SURG OTHR DR: DOES_NOT KNOW No Primary or Family Physician Juan Mcbride MD, Jignesh P MDORDERED: SURG PATH LVL 4 COPIES TO: DOES_NOT KNOW No Primary [place] [address] [address] [email or web address] [address] [place] [address] Arnulfo Cormier MD [address] [address] HISTOLOGY: TISSUE ID BLK PCS KANWAL LEV PROCEDURE DISPOSITION ____ ___ ___ ___ ESOPHAGUS, NOS A 1 2 PROCEDURES: SURG PATH LVL 4 (12/14/20-1245) TISSUES: A. ESOPHAGUS, NOS - ESOPHAGUS BIOPSY CLINICAL HISTORY ESOPHAGEAL FOOD BOLUS, STRICTURE V DYSMOTILITY CONTINUED ON NEXT PAGE RUN DATE: 10/07/20 [facility] PAGE 2 RUN TIME: 1607 Specimen Inquiry RUN USER: INTERFACE SPEC #: [facility]:[id number] PATIENT: FIONA SANCHES JR #[id number] (Continued) CPT CODES CPT CODE(S): 48759 , , , , , , FINAL DIAGNOSIS Esophagus, biopsy: ACUTE ESOPHAGITIS WITH CANDIDIASIS NEGATIVE FOR INTESTINAL METAPLASIA, DYSPLASIA, OR MALIGNANCY GROSS DESCRIPTION Esophagus biopsy. Received in formalin are multiple minute fragments of suarez soft tissue, 0.1 - 0.3 cm. The specimen is filtered in a teabag and entirely submitted as A. ba/nr Grossing performed at [facility] Pathology, [address] [place] [address], [address], [place] [address]. Drain Layer: Abner Steward M.D. MICROSCOPIC DESCRIPTION Esophagus biopsy. [...] indicativ e of the presence code = JJSKN05IY) ofSARS-CoV -2 RNA, clinical correlation wit h [...] for the identification of SARS-CoV-2 RNA usingthe [employer] M2000 Sy stem under the FDA Emergen cy UseAuthorizatio n. The testing is perf ormed by personneltraine d in the procedures for the Sanders M2000 molecular diagnostic SARS-CoV-2 assa y in vitro. Novel Coronavirus 15:50:00 Test Item Value Reference Range Interpretation Comments Novel Coronavirus Negative Negative Positive r esults are 2019 Inhouse (test indicativ e of the presence code = XAKIB70SF) ofSARS-CoV -2 RNA, clinical correlation wit h [...] SARS-CoV-2 assa y in vitro. CBC W/AUTO [id number] 13:10:00 Test Item Value Reference Range Interpretation [...] NT WITH AUTO DIFFERENTI AL. CBC W/AUTO [id number] 13:10:00 Test Item Value Reference Range Interpretation [...] CONSISTA NT WITH AUTO DIFFERENTI AL. RBC [id number] 13:10:00 Test Item Value Reference Range Interpretation Comments PLATELET ESTIMATE DECREASED THOUSAND ADEQUATE PLAT ELET COUNT (test code = REVIEWED AND PLTEST) VERIFIED. PLATELET MORPHOLOGY NORMAL (test code = PLTMORPH) CBC W/AUTO [id number] 13:10:00 Test Item Value Reference Range Interpretation [...] NT WITH AUTO DIFFERENTI AL. COMPREHENSIVE METABOLIC [id number] 11:48:00 Test Item Value Reference Range Interpretation [...] TOTAL (test code = ALKP) CBC W/AUTO [id number] 11:33:00 Test Item Value Reference Range Interpretation [...] REQUIRED (test code = DIFF/SCN CRITERIA MDIFF) [id number] 04:59:00 Test Item Value Reference Range Interpretation Comments AMMONIA (test code = AMM) 56 mcMOL/L 11-32 H LACTIC [id number] 04:59:00 Test Item Value Reference Range Interpretation Comments LACTIC ACID (test code = LACT) 0.7 mmol/L 0.4-2.0 N GLUCOSE BEDSIDE [id number] 20:35:00 Test Item Value Reference Range Interpretation Comments GLUCOSE BEDSIDE TESTING (test code 109 mg/dL 70-110 N = GLUBED) GLUCOSE BEDSIDE [id number] 17:10:00 Test Item Value Reference Range Interpretation Comments GLUCOSE BEDSIDE TESTING (test code 105 mg/dL 70-110 N = GLUBED) - US ABDOMEN [id number] 16:39:00 [facility] : 1985 Sex: M Name:FIONA SANCHES JR [facility] : 1985 Age/S: 35 / M [address] Unit #: [id number] Loc: [place] [address] Phys: Matilda Kirk PA-C Acct: [id number] Dis Date: Status: ADM IN PHONE #: [phone] Exam Date: 10/06/2020 9434 FAX #: Reason: elevated lfts, evaluate for cirrhosis EXAMS: CPT: [id number] US ABDOMEN LTD 77655 RIGHT UPPER QUADRANT ULTRASOUND. CLINICAL HISTORY: Elevated [...] kidney measures 9.3 x 4 x 4.8 cm.Mild right renal pelviectasis noted. Evaluation of the pancreas is limited due to overlying bowel gas. IMPRESSION: 1. Trace ascites is noted in the upper abdomen. 2. Mild right renal pelviectasis. 3.Mild distention of the gallbladder. No gallstones are identified. Location Code: R16 at 1639 Reported and signed by: Eh Barajas M.D. PAGE 1 Signed Report (CONTINUED) Name: FIONA SANCHES JR [place] : 1985 Age/S: 35 / M [address] Unit #: [id number] Loc: [place] [address] Phys: Matilda Kirk PA-C Acct: [id number] D is Date: Status: ADM IN PHONE #: [phone] Exam Date: 10/06/2020 1321 FAX #: Reason: elevated lfts, evaluate for cirrhosis EXAMS: CPT: [id number] ABDOMEN LTD 25484 (Continued) CC: Sreekanth Garcia MD; Matilda Kirk Technologist: Rae Eaton [facility] Date/Time: 10/06/2020 (1639) [email or web address] PAGE 2 Signed Report Name: FIONA SANCHES JR [place] : 1985 Age/S: 35 / M [address] Unit #: [id number] Loc: [place] [address] Phys: Matilda Kirk PA-C Acct: [id number] Dis Date:Status: ADM IN PHONE #: [phone] Exam Date: 10/06/2020 1512 FAX #: Reason: elevated lfts, evaluate for cirrhosis EXAMS: CPT: [id number] US ABDOMEN LTD 31211 (Continued) Orig Print D/T: S: 10/06/2020(1643) Probe: PAGE 3 Signed ReportUA RFLX MICR CULT IF [id number] 15:23:00 Test Item Value Reference Range Interpretation [...] 92 mg/dL 70-110 N GLUBED) GLUCOSE BEDSIDE [id number] 13:37:00 Test Item Value Reference Range Interpretation Comments GLUCOSE BEDSIDE TESTING (test code = 58 mg/dL 70-110 L GLUBED) CREATINE KINASE (CK)2020-10-06 11:26:00 Test Item Value Reference Range Interpretation Comments CREATINE KINASE (CK) (test code = 287 Unit/L 26-192 H CK) [id number] 11:26:00 Test Item Value Reference Range Interpretation Comments AMYLASE (test code = JOSE CARLOS) 120 Unit/L 25-115 H [id number] 11:26:00 Test Item Value Reference Range Interpretation Comments LIPASE (test code = LIP) 112 Unit/L 114-286 L CBC W/AUTO [id number] 09:58:00 Test Item Value Reference Range Interpretation [...] DIFF/SCN CRITERIA (test code = MDIFF) WBC [id number] 09:58:00 Test Item Value Reference Range Interpretation [...] NORMAL (test code = PLTMORPH) CBC W/AUTO [id number] 09:55:00 Test Item Value Reference Range Interpretation [...] DIFF/SCN CRITERIA (test code = MDIFF) WBC [id number] 09:55:00 Test Item Value Reference Range Interpretation Comments SEGMENTED NEUTROPHILS (test code = SEG) % 40-75 LYMPHOCYTE (test code = LYMPH) % 12.6-43.5 CBC W/AUTO [id number] 09:55:00 Test Item Value Reference Range Interpretation [...] DIFF/SCN CRITERIA (test code = MDIFF) WBC [id number] 09:55:00 Test Item Value Reference Range Interpretation Comments SEGMENTED NEUTROPHILS (test code = SEG) % 40-75 LYMPHOCYTE (test code = LYMPH) % 12.6-43.5 COMPREHENSIVE METABOLIC [id number] 09:14:00 Test Item Value Reference Range Interpretation [...] TOTAL (test code = ALKP) CBC W/AUTO [id number] 09:02:00 Test Item Value Reference Range Interpretation [...] CRITERIA (test code = MDIFF) GLUCOSE BEDSIDE [id number] 06:41:00 Test Item Value Reference Range Interpretation Comments GLUCOSE BEDSIDE TESTING (test code = 65 mg/dL 70-110 L GLUBED) COVID 19 INHOUSE [id number] 05:40:00 Test Item Value Reference Range Interpretation Comments COVID 19 INHOUSE AG NEGATIVE Negative Per manu facturer, (test code = negative result s should [id number]) be treated aspr esumptive and, if inconsi [...] co nsistent with COVID-19. - CT CHEST [id number] 03:30:00 [facility] 1985 Sex: M Name:FIONA SANCHES JR [facility] : 1985 Age/S: 35 / M [address] Unit #: [id number] Loc: [place] [address] Phys: Scott Person MD Acct: [id number] Dis Date: Status: REG ER PHONE #: [phone] Exam Date: 10/06/2020 0247 FAX #: Reason: possible esophageal pneumatosis EXAMS: CPT: [id number] CT CHEST W/CONTRAST [address]6711 DICTATION LOCATION: [facility] HISTORY: Male, 35 years of age with esophageal pain for 2 months; evaluate for esophageal pneumatosis EXAM: CT CHEST WITH IV CONTRAST (ROUTINE) COMPARISON: None TECHNIQUE: Helical axial images were obtained through the chest with 100 mL nonionicIV contrast using the routine chest protocol. Coronal [...] Signed Report (CONTINUED) Name: FIONA SANCHES JR [place] : 1985 Age/S: 35 / M [address] Unit #: [id number] Loc: [place] [address] Phys: RazaAkhilTheresa Acct: [id number] Dis Date: Status: REG ER PHONE #: [phone] Exam Date: 10/06/2020 0245 FAX#: Reason: possible esophageal pneumatosis EXAMS: CPT: [id number] CT CHEST W/CONTRAST 78477 (Continued) (i.e. scleroderma or dermatomyositis). Infiltrative neoplasm [...] RT(R)(CT); CTDI: DLP: Trnscb Date/Time: 10/06/2020 (0330) Colette.[email or web address] Orig Print D/T: S: 10/06/2020 (0333) PAGE 2 Signed Report- CT NECK [id number] 03:11:00 [facility] : 1985 Sex: M Name:FIONA SANCHES JR [facility] : 1985 Age/S: 35 / M [address] Unit #: [id number]: Esequiel Nur [address] Phys: Scott Person MD Acct: [id number] Dis Date: Status: REG ER PHONE #:[phone] Exam Date: 10/06/2020 0250 FAX #: Reason: possible esophageal pneumatosis EXAMS: CPT: [id number] CT NECK W/CONTRAST 53806 EXAM: - CT NECK W/CONTRAST LOCATION: H57 [...] [place] : 1985 Age/S: 35 / M [address] Unit #: [id number] Loc: [place] [address] Phys: Scott Person MD Acct: [id number] Dis Date: Status: REG ER PHONE #: [phone] Exam Date: 10/06/2020 0250 FAX #: Reason: possible esophageal pneumatosis EXAMS: CPT: [id number] CT NECK W/CONTRAST 56122 (Continued)CC: Technologist:Valentine Momin, RT(R)(CT); CTDI: DLP: Trnscb Date/Time: 10/06/2020 (310) [email or web address] Orig Print D/T: S: 10/06/2020 (313) PAGE 2 Signed ReportBASIC METABOLIC [id number] 02:14:00 Test Item Value Reference Range Interpretation [...]
[2022-09-04] MEDS ORDERED: ACETAMINOPHEN 500 MG TAB ONE (16:45)
--- NOTE | 2022-09-04 16:52 | RAD REPORT ---
EXAM DESCRIPTION: CT - CTHCSPWOC - 09/04/2022 4:37 pm CLINICAL HISTORY: Trauma, head and neck injury. fall COMPARISON: Head C Spine Mpr Wo Con dated 08/14/2022; Head C Spine Mpr Wo Con dated 06/19/2022; Head C Spine Mpr Wo Con dated 05/04/2022; Head C Spine Mpr Wo Con dated 08/18/2021; Abdomen Pelvis Wo Con trast dated 06/19/2022 TECHNIQUE: Axial 5 mm thick images of the head were obtained. Axial 2 mm thick images of the cervical spine were obtained with sagittal and coronal reconstruction images generated and reviewed. All CT scans are performed using dose optimization technique as appropriate and may include automated exposure control or mA/KV adjustment according to patient size. FINDINGS: CT HEAD WITHOUT CONTRAST: No acute hemorrhage, hydrocephalus or extra-axial collection is identified.No areas of brain edema or midline shift. Age advanced cerebral atrophy. The paranasal sinuses and mastoids are clear.The calvarium is intact. CT CERVICAL SPINE WITHOUT CONTRAST: No fracture or subluxation.No prevertebral soft tissues swelling is identified. The esophagus is dist ended with particulate matter. IMPRESSION: No acute intracranial or cervical spine findings.
--- NOTE | 2022-09-04 17:51 | ER ---
Nurse's Notes [facility] Name: Tahir Ag Jr Age: 37 yrs Sex: Male : 1985 Arrival Date: 09/04/2022 Time: 15:52 Bed 6 Private MD: Diagnosis: Fall (on)(from) sidewalk curb Presentation: 09/04 15:55 Chief complaint: Patient states: Pt reports he was discharged from this ED \T\[id number] and kb3 was walking near the [facility] in [place] when he tripped and fell on the concrete surface, striking his face on the ground. Pt denies LOC. Reports lower lip pain and swelling and back pain 08/02. C-collar in place. Pt requesting pain medication upon arrival with [facility]. Coronavirus screen: Vaccine status: Patient reports receiving the 2nd dose of the covid vaccine. Client denies travel out of the [place] in the last 14 days. Ebola Screen: Patient negative for fever greater than or equal to 101.5 degrees Fahrenheit, and additional compatible Ebola Virus Disease symptoms Patient denies exposure to infectious person. Patient denies travel to an Ebola-affected area in the 21 days before illness onset. Initial Sepsis Screen: Does the patient meet any 2 criteria? No. Patient's initial sepsis screen is negative. Does the patient have a suspected source of infection? No. Patient's initial sepsis screen is negative. Risk Assessment: Do you want to hurt yourself or someone else? Patient reports no desire to harm self or others. Onset of symptoms was September 04, 2022 at 15:00. 15:55 Method Of Arrival: EMS: [facility] kb3 15:55 Acuity: MARTINA 3 kb3 Triage Assessment: 15:59 General: Appears in no apparent distress. Behavior is calm, cooperative. Pain: kb3 Complains of pain in back and lower lip Pain does not radiate. Pain currently is 10 out of 10 on a pain scale. Quality of pain is described as aching. EENT:. Historical: - Allergies: 15:59 No Known Allergies; kb3 - Home Meds: 15:59 Unable to obtain [Active]; kb3 - PMHx: 15:59 achalasia; Bipolar disorder; Diabetes - NIDDM; Hernia; Hypertension; Schizophrenia; kb3 Seizure; - PSHx: 15:59 gastrostomy tube; kb3 - Immunization history:: Adult Immunizations up to date, Client reports receiving the 2nd dose of the Covid vaccine, Last tetanus immunization: up to date. - Social history:: Smoking status: Patient reports the use of cigarette tobacco products, denies chronic smoking, but will smoke occasionally, Patient uses street drugs, cocaine. Screenin:01 Abuse screen: Denies threats or abuse. Denies injuries from another. Nutritional kb3 screening: No deficits noted. Tuberculosis screening: No symptoms or risk factors identified. Fall Risk None identified. Assessment: 16:01 General: See triage note. kb3 Vital Signs: 15:55 BP 110 / 66; Pulse 73; Resp 20; Temp 97; Pulse Ox 100% ; Weight 39.46 kg; Height 5 ft. kb3 5 in. (165.10 cm); Pain 10/10; 15:55 Body Mass Index 14.48 (39.46 kg, 165.10 cm) kb3 ED Course: 15:52 Patient arrived in ED. eb 15:54 Lynda Antonio, RN is Primary Nurse. kb3 15:57 [facility]. jl9 15:57 Deedee Valle MD is Attending Physician. jl9 15:59 Triage completed. kb3 15:59 Arm band placed on right wrist. Patient placed in an exam room, on a stretcher. kb3 16:01 Patient has correct armband on for positive identification. Bed in low position. Call kb3 light in reach. Warm blanket given. 16:01 No provider procedures requiring assistance completed. kb3 16:[address] kb3 16:39 CT Head C Spine In Process Unspecified. EDMS 16:[address] back from [address]. kb3 18:04 Patient did not have IV access during this emergency room visit. vg1 Administered Medications: 16:45 Drug: Acetaminophen 1000 mg Route: PO; kb3 Medication: 16:01 VIS not applicable for this client. kb3 Outcome: 17:50 Discharge ordered by . jl9 18:03 Discharged to home ambulatory. vg1 18:03 Condition: good 18:03 Discharge instructions given to patient, Instructed on discharge instructions, follow up and referral plans. Demonstrated understanding of instructions, follow-up care. 18:04 Patient left the ED. vg1 Signatures: Dispatcher [employer] Francie Kenny Victoria, RN RN vg1 Reji Blackmon jl9 Lynda Antonio, RN RN kb3
--- NOTE | 2022-09-04 17:51 | EDPHYS ---
Physician Documentation [facility] Name: Tahir Ag Jr Age: 37 yrs Sex: Male : 1985 Arrival Date: 09/04/2022 Time: 15:52 Bed 6 Private MD: ED Physician Deedee Valle HPI: 09/04 17:07 This 37 yrs old Black Male presents to ER via EMS with complaints of lower lip pain and jl9 neck pain s/p fall from standing position. . 17:07 Onset: The symptoms/episode began/occurred just prior to arrival. Severity of symptoms: jl9 Pain is currently a 2 / 10. Historical: - Allergies: 15:59 No Known Allergies; kb3 - Home Meds: 15:59 Unable to obtain [Active]; kb3 - PMHx: 15:59 achalasia; Bipolar disorder; Diabetes - NIDDM; Hernia; Hypertension; Schizophrenia; kb3 Seizure; - PSHx: 15:59 gastrostomy tube; kb3 - Immunization history:: Adult Immunizations up to date, Client reports receiving the 2nd dose of the Covid vaccine, Last tetanus immunization: up to date. - Social history:: Smoking status: Patient reports the use of cigarette tobacco products, denies chronic smoking, but will smoke occasionally, Patient uses street drugs, cocaine. ROS: 17:07 Constitutional: Negative for fever, chills, and weight loss, Eyes: Negative for injury, jl9 pain, redness, and discharge, ENT: Negative for injury, pain, and discharge. 17:07 Cardiovascular: Negative for chest pain, palpitations, and edema, Respiratory: Negative for shortness of breath, cough, wheezing, and pleuritic chest pain, Abdomen/GI: Negative for abdominal pain, nausea, vomiting, diarrhea, and constipation, Back: Negative for injury and pain, : Negative for injury, bleeding, discharge, and swelling, MS/Extremity: Negative for injury and deformity, Skin: Negative for injury, rash, and discoloration, Neuro: Negative for headache, weakness, numbness, tingling, and seizure, Psych: Negative for depression, anxiety, suicide ideation, homicidal ideation, and hallucinations, Allergy/Immunology: Negative for hives, rash, and allergies, Endocrine: Negative for neck swelling, polydipsia, polyuria, polyphagia, and marked weight changes, Hematologic/Lymphatic: Negative for swollen nodes, abnormal bleeding, and unusual bruising. 17:07 Neck: Positive for pain with movement. Exam: 17:08 Constitutional: This is a well developed, well nourished patient who is awake, alert, jl9 and in no acute distress. Head/Face: Normocephalic, atraumatic. Eyes: Pupils equal round and reactive to light, extra-ocular motions intact. Lids and lashes normal. Conjunctiva and sclera are non-icteric and not injected. Cornea within normal limits. Periorbital areas with no swelling, redness, or edema. ENT: Mucous membranes moist. Chest/axilla: Normal chest wall appearance and motion. Nontender with no deformity. No lesions are appreciated. Cardiovascular: Regular rate and rhythm with a normal S1 and S2. No gallops, murmurs, or rubs. Normal PMI, no JVD. No pulse deficits. Respiratory: Lungs have equal breath sounds bilaterally, clear to auscultation and percussion. No rales, rhonchi or wheezes noted. No increased work of breathing, no retractions or nasal flaring. Abdomen/GI: Soft, non-tender, with normal bowel sounds. No distension or tympany. No guarding or rebound. No evidence of tenderness throughout. Back: No spinal tenderness. No costovertebral tenderness. Full range of motion. 17:08 Skin: Warm, dry with normal turgor. Normal color with no rashes, no lesions, and no evidence of cellulitis. MS/ Extremity: Pulses equal, no cyanosis. Neurovascular intact. Full, normal range of motion. Neuro: Awake and alert, GCS 15, oriented to person, place, time, and situation. Cranial nerves II-XII grossly intact. Motor strength 5/5 in all extremities. Sensory grossly intact. Cerebellar exam normal. Normal gait. Psych: Awake, alert, with orientation to person, place and time. Behavior, mood, and affect are within normal limits. Vital Signs: 15:55 BP 110 / 66; Pulse 73; Resp 20; Temp 97; Pulse Ox 100% ; Weight 39.46 kg; Height 5 ft. kb3 5 in. (165.10 cm); Pain 10/10; 15:55 Body Mass Index 14.48 (39.46 kg, 165.10 cm) kb3 MDM: 15:57 Patient medically screened. jl9 17:10 Data reviewed: vital signs, nurses notes. jl9 17:49 Counseling: I had a detailed discussion with the patient and/or guardian regarding: the jl9 historical points, exam findings, and any diagnostic results supporting the discharge/admit diagnosis, radiology results, the need for outpatient follow up, to return to the emergency department if symptoms worsen or persist or if there are any questions or concerns that arise at home. Response to treatment: the patient's symptoms have markedly improved after treatment. 09/04 16:10 Order name: CT Head C Spine; Complete Time: 17:00 jl9 Administered Medications: 16:45 Drug: Acetaminophen 1000 mg Route: PO; kb3 Disposition Summary: 09/04/22 17:50 Discharge Ordered Location: Home jl9 Condition: Stable jl9 Diagnosis - Fall (on)(from) sidewalk curb jl9 Followup: jl9 - With: Private Physician - When: 1 - 2 days - Reason: Recheck today's complaints, Continuance of care, Re-evaluation by your physician Discharge Instructions: - Discharge Summary Sheet jl9 - Fall Prevention in the Home, Adult, [id number] jl9 Forms: - Medication Reconciliation Form jl9 - Thank You Letter jl9 - Antibiotic Education jl9 - Prescription Opioid Use jl9 Signatures: Dispatcher [employer] Reji Vanegas jl9 Lynda Antonio, RN RN kb3
[2022-09-04 19:36] VITALS: BP 110/66; TEMP 97; O2SAT 100
== END 2022-09-04 18:04 | disposition home or self-care (01) ==
LOC: ER 15:41
DX: M54.9 Dorsalgia, unspecified (principal); R22.9 Localized swelling, mass and lump, unspecified; W10.1XXA Fall (on)(from) sidewalk curb, initial encounter; I10 Essential (primary) hypertension; F17.210 Nicotine dependence, cigarettes, uncomplicated
CPT/HCPCS: 70450; 72125; 99284